=== PATIENT | male | born 1950 | race Caucasian/White ===

== ENCOUNTER 2021-10-01 16:09 | Emergency (ER) | payer MEDICARE, SELFPAY ==
--- NOTE | ~2021-10-01 | XR_ITS ---
XR chest 2V 10/01/2021 16:46 Indication: Shortness of breath. Procedure: 2 view chest Comparison: 09/15/2018 Findings: There is a tracheostomy tube present. Heart size normal. No focal air space disease, pulmon enrique edema, pleural effusion or suspected pneumothorax. No acute osseous abnormality. Impression: 1: No acute cardiopulmonary disease. Reviewed, dictated and finalized at location B. Impression: 1: No acute cardiopulmonary disease.
[2021-10-01 16:21] VITALS: BP 134/76; PULSE 85; RESP 16; TEMP 36.3; O2SAT 99
--- NOTE | 2021-10-01 16:48 | ED.SOB ---
HPI - SOB/Dyspnea General Chief Complaint: Shortness of Breath/Dyspnea Stated Complaint: shortness of breath, dizziness Time Seen by Provider: 10/01/21 16:40 Source: patient Mode of arrival: ambulatory Limitations: no limitations History of Present Illness HPI Narrative: Holger Weldon is a 71 yo male with PMH of renal carcinoma,anxiety, high cholesterol, GERD, trach, laryngectomy, who [facility] complaining of shortness of breath. And elevated blood pressure at home. At triage his O2 sats are 99% and his blood pressure was 134/76. He is also on chronic anticoagulation for pulmonary emboli -CT scheduled for Tuesday with blood work-he is has a cancer infusion X3 unable to tell me which cancer he is being treated for Patient has had a COVID-vaccine and has been posted Related Data Home Medications Medication Instructions Recorded Confirmed apixaban [Eliquis] mg 10/01/21 aspirin 81 mg PO DAILY 10/01/21 10/01/21 atorvastatin 80 mg PO DAILY 10/01/21 10/01/21 clonazepam 10/01/21 omeprazole 20 mg PO DAILY 10/01/21 10/01/21 Allergies Allergy/AdvReac Type Severity Reaction Status Date / Time No Known Allergies Allergy Verified 10/01/21 16:21 Review of Systems Review of Systems: CONSTITUTIONAL: Denies fever, chills, sweats. EYES: Denies visual changes, redness, discharge. ENT: Denies rhinorrhea, congestion, sore throat, otalgia. CARDIOVASCULAR: Denies chest pain, palpitations, edema. RESPIRATORY: Complains of dyspnea, wheezing, cough GASTROINTESTINAL: Denies abdominal pain, nausea, vomiting, diarrhea. GENITOURINARY: Denies dysuria, hematuria, abnormal discharge SKIN: Denies rash or itching. NEUROLOGIC: Denies numbness, or focal weakness. PSYCHIATRIC: Denies anxiety or depression. [facility] Past Medical History Medical History Chronic anticoagulation GERD (gastroesophageal reflux disease) High cholesterol Pulmonary emboli Surgical History Surgical History History of laryngectomy Social History Social History (Updated 10/01/21 @ 16:51 by Natalie Henry CNP) Smoking status: Former smoker Comments At time of signature, I agree with nursing past medical, surgical, social and family history. There is no relevant family history pertinent to the presenting complaint. Exam Narrative: GENERAL: This is a well-nourished, well-developed patient, in mild distress. HEAD: normocephalic, atraumatic. EYES: PERRL. Sclera clear/white. Vision is grossly intact. EARS: External ears normal. Hearing grossly intact. NOSE: External nose normal without nasal discharge, nares without redness, no rhinorrhea. THROAT: Mucous membranes moist, NECK: Neck supple, trach in place CARDIOVASCULAR: Irregular rate and rhythm without murmurs, gallops, or rubs. RESPIRATORY: Clear to auscultation. Breath sounds equal bilaterally. No wheezes, rales, or rhonchi. GASTROINTESTINAL: Abdomen soft, SKIN: warm, intact with no suspicious lesions or rash, good texture and turgor. NEURO: awake, alert, and oriented to person, place and time. There were no obvious focal neurologic abnormalities. Steady gait EXTREMITIES: Normal range of motion. BACK: Nontender without deformity Course Course Emergency Course: Patient with chronic physical abnormalities including renal carcinoma and laryngectomy comes complaining of dyspnea for the last few days in triage his O2 sats were 99%. Has received COVID-vaccine Chest x-ray-no acute cardiopulmonary disease, no pleural effusion no pulmonary edema or suspected pneumothorax Patient discussed needing an echocardiogram and is getting infusions for his cancer treatment every 3 weeks but is unable to tell me which cancer is being treated for. He has a CT and blood work scheduled for Tuesday; recommended that he becomes more short of breath that he should go to the emergency room pointed out that he has been
== END 2021-10-01 17:11 | disposition home or self-care (01) ==
PROVIDERS: Emergency Provider Nurse Practitioner
DX: R06.00 Dyspnea, unspecified (principal); K21.9 Gastro-esophageal reflux disease without esophagitis; E78.00 Pure hypercholesterolemia, unspecified; Z86.711 Personal history of pulmonary embolism; Z79.01 Long term (current) use of anticoagulants; Z87.891 Personal history of nicotine dependence; Z79.82 Long term (current) use of aspirin
CPT/HCPCS: 71046; 99213; G0463

== ENCOUNTER 2021-12-03 14:57 | Inpatient (IN) | payer MEDICARE, SELFPAY ==
[2021-12-03] VITALS (20 sets, daily range): BP systolic 121–141; BP diastolic 88–102; PULSE 59–88; RESP 16–37; TEMP 36.6–36.9; O2SAT 90–98; BMI 28.0; BMI 28.3
--- NOTE | ~2021-12-03 | XR_ITS ---
EXAMINATION: XR chest 2V DATE: 12/03/2021 15:49 INDICATION: Shortness of breath. TECHNIQUE: Frontal and lateral views of the chest were obtained. COMPARISON: Chest 2 views 10/01/2021, CT abdomen 09/15/2018 FINDINGS: There is a diffuse interstitial pattern in the lungs, consistent mild pulmonary edema. Ther e are small pleural effusions. No pneumothorax. Cardiomegaly is noted. A tracheostomy tube is noted. IMPRESSION: 1. Mild pulmonary edema. 2. Small pleural effusions. 3. Cardiomegaly. Reviewed, dictated and finalized at location A.
--- NOTE | ~2021-12-03 | XR_ITS ---
XR chest 1V portable 12/05/2021 12:28 Indication: New onset of shortness of breath Procedure: AP portable chest Comparison: 12/03/2021 Findings: Cardiomegaly with improving interstitial edema. No significant effusion or pneumothorax. Th ere is a tracheostomy tube present. No acute osseous abnormality. Impression: 1: Improving interstitial edema. Reviewed, dictated and finalized at location A. Impression: 1: Improving interstitial edema.
--- NOTE | ~2021-12-03 | CT_ITS ---
EXAMINATION: CTA chest PE protocol DATE: 12/03/2021 17:58 INDICATION: Shortness of breath. TECHNIQUE: Computed tomography angiography (CTA) of the chest was performed with 100 mL Omnipaque-350 intravenous contrast timed to evaluate the pulmonary arteries. Coronal maximum intensity projection 3D-reconstructions were created by the technologist. Automated exposure control and iterative reconst ruction technique were employed. The dose-length product was 476.20 mGy-cm. COMPARISON: CT abdomen 09/15/2018 FINDINGS: There is smooth septal thickening, consistent mild pulmonary edema. There are small pleural effusions. There are dependent airspace and groundglass opacities, likely atelectasis. There is a tr acheostomy tube in expected position. Cardiomegaly is noted. There are coronary artery calcifications . No pericardial effusion. There is a small linear filling defect in pulmonary arteries in left lower lobe. There is a small linear filling defect in distal right main pulmonary artery. Right kidney is absent. IMPRESSION: 1. Small bilateral pulmonary emboli, likely chronic. 2. Mild pulmonary edema. 3. Small pleural effusions. 4. Cardiomegaly. Reviewed, dictated and finalized at location A.
--- NOTE | 2021-12-03 14:58 | ECG_ITS ---
Measurements Intervals [place] Rate: 83 P: HI: 0 QRS: -2 QRSD: 110 T: -5 QT: 391 QTc: 462 Interpretive Statements ATRIAL FIBRILLATION VENTRICULAR PREMATURE COMPLEX BORDERLINE R WAVE PROGRESSION, ANTERIOR LEADS NONSPECIFIC ST & T-WAVE ABNORMALITY- DIFFUSE LEADS ABNORMAL ECG Electronically Signed On 12-03-2021 16:25:24 CDT by Blanco Scott D.O.
[2021-12-03 15:31] LABS: Basophils Percent Auto 0.6 % (0.2-1.2); Eosinophils Absolute Auto 0.1 K/mm3 (0-0.3); Eosinophils Percent Auto 1.7 % (0-4.4); Hematocrit 39.3 % (42.0-52.0); Hemoglobin 13.6 g/dL (14.0-18.0); Immature Granulocyte Absolute 0.02 K/mm3 (0.00-0.031); Immature Granulocyte Percent A 0.3 % (0-0.5); Lymphocytes Absolute Auto 2.01 K/mm3 (0.9-3.2); Lymphocytes Percent Auto 31.9 % (18.3-44.2); Mean Corpuscular HGB Conc 34.6 g/dl (32-36); Mean Corpuscular Volume 89.5 fl (80-100); Monocytes Absolute Auto 0.5 K/mm3 (0.1-0.6); Monocytes Percent Auto 7.5 % (2.6-8.5); Neutrophils Absolute Auto 3.7 K/mm3 (1.3-6.7); Platelet Count Result 175 k/mm3 (150-375); Red Blood Count 4.39 M/mm3 (4.6-6.20); White Blood Count 6.3 K/mm3 (4.5-10.0)
[2021-12-03 15:41] LABS: Alanine Aminotransferase 19 U/L (6-50); Alkaline Phosphatase 52 U/L (38-126); Anion Gap 9 mmol/L (8-16); Aspartate Amino Transferase 22 U/L (17-59); Bilirubin,Total 1.3 mg/dL (0.2-1.3); Blood Urea Nitrogen 18 mg/dL (9-20); Calcium 8.3 mg/dL (8.4-10.2); Carbon Dioxide 22 mmol/L (22-30); Chloride 94 mmol/L (98-107); Estimated CRCL calculation 48 ml/min; Estimated Glomerular Filt Rate 54; Glucose 100 mg/dL (65-110); Potassium 3.7 mmol/L (3.4-5.0); Sodium 125 mmol/L (137-145)
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
[2021-12-03 16:35] LABS: Alveolar/Arterial O2 Gradient 44.4 mmHg; Fractional Inspired Oxygen 21 %; HCO3 ABG 18.7 mEq/l (22.0-26.0); Oxygen Content ABG 18.5 %vol (16.0-22.0); Oxygen Saturation ABG 95.3 % (95.0-100.0); Oxyhemoglobin 92.6 % THb (90.0-100.0); PCO2 ABG 27.9 mmHg (35.0-45.0); PO2 ABG 71.9 mmHg (80.0-100.0); PO2 FiO2 Ratio Arterial Blood 3.42 %; Total Hemoglobin 14.2 g/dL (12.0-18.0); pH ABG 7.443 (7.350-7.450)
[2021-12-03 16:36] LABS: Device ROOM AIR; Modified Allen's Test Pass; Site Drawn RIGHT RADIAL
[2021-12-03 16:58] LABS: NT Pro B Type Natriuretic Pept 6280 pg/mL (5-100); Troponin I 0.033 ng/mL (0.000-0.034)
[2021-12-03 17:05] LABS: D Dimer 0.78 ug/mL (<0.48)
[2021-12-03 17:18] LABS: SARS-CoV-2 RNA PCR Negative
--- NOTE | 2021-12-03 18:15 | PM.IMHP ---
H&P: HPI History of Present Illness Date/Time: 12/03/21 18:15 Chief Complaint: Shortness of breath accompanied with nausea Narrative: Patient is a 71-year-old male with past medical history of PE, laryngectomy with trach placement, renal carcinoma who presented the ED with complaints of shortness of breath and nausea for about a 6 days. He stated that this is all getting worse and he has been vomiting multiple times and he always feels like he is going to vomit. He has had chest pain that sternal and he can not walk far without being very short of breath. He just saw the Cardiology yesterday who ordered a stress test for tomorrow however patient is here because he is feeling worse. Patient started Eliquis in July for PE. He also stated that he is tired and weak. He denies any swelling in his legs. On the monitor the patient is in AFib when asked what he stated that he does not know anything about it but then said that Dr. De Leon who is his senior scrum master was going to do the stress test tomorrow and then on was go to do a cardioversion. Patient denies any palpitations, diarrhea, constipation, visual changes, headaches, dizziness, weakness or fatigue. Patient currently sports a metal trach he has had for over 45 years. He denies any sputum changes or increases color changes. He denies any urinary changes. He denies any pain. Chest x-ray and CTA pulse show small pleural effusions and mild pulmonary edema. Patient is being admitted to the hospitalist service as inpatient. Cardiology has been consulted Review of Systems Review of Systems: All systems reviewed & are unremarkable except as noted in HPI and below [facility] Past Medical History Medical History (Updated 12/03/21 @ 20:56 by DEDE Ortiz) Chronic anticoagulation GERD (gastroesophageal reflux disease) High cholesterol Hip fracture Pelvic fracture Pulmonary emboli Renal carcinoma Surgical History Surgical History History of laryngectomy History of nephrectomy Family History Family History (Updated 12/03/21 @ 20:57 by DEDE Ortiz) Mother Heart disease Hypertension Father Heart disease Hypertension Social History Social History (Updated 12/03/21 @ 21:00 by DEDE Ortiz) Social History: Patient just moved back here from [place] due to treatment. 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 Gender identity (if verbalized by the patient): Male Spiritual care concerns: Yes Agree to blood products: Yes Meds Home Medications and Allergies Home Medications Medication Instructions Recorded Confirmed Type apixaban 5 mg tablet (Eliquis) 5 mg PO BID 10/01/21 12/03/21 History atorvastatin 80 mg tablet 80 mg PO DAILY 10/01/21 12/03/21 History clonazepam 1 mg tablet 1 mg PO HS 10/01/21 12/03/21 History omeprazole 20 mg capsule,delayed 20 mg PO DAILY 10/01/21 12/03/21 History release aspirin 81 mg tablet,delayed 81 mg PO DAILY 12/03/21 12/03/21 History release metoprolol succinate 25 mg 25 mg PO DAILY 12/03/21 12/03/21 History tablet,extended release 24 hr zolpidem 5 mg tablet 5 mg PO 12/03/21 12/03/21 History Allergies Allergy/AdvReac Type Megan
[2021-12-03] MEDS: FUROSEMIDE INJ 40 MG/4 ML VIAL 60 MG IV PUSH (18:56)
[2021-12-03] MEDS: ONDANSETRON INJ 4 MG/2 ML VIAL (18:56)
[2021-12-03] MEDS: NITROGLYCERIN OINTMENT 1 INCH DOSE TRANSDERM ×2 (18:58→23:34)
--- NOTE | 2021-12-03 20:18 | ADMGEN ---
This patient, Holger Titus, was admitted to IMU Room 204-01 at 2005. Patient/family oriented to hospital policies and general routines including ID bracelet, bed and alarms, visiting hours, pain management, procedures, bathroom and other care routines, personal items, smoking policy, room service/diet, and visiting hours. Information on how to activate the Rapid Response Team has been discussed. Patient/Family are encouraged to report perceived risks to care and to ask questions if they do not understand what they are told or what they should do.
[2021-12-03] MEDS: METOCLOPRAMIDE HCL INJ 10 MG/2 ML VIAL IV PUSH (21:44)
[2021-12-03] MEDS: clonazePAM (*CRX) 0.5 MG TABLET 1 MG PO (21:47)
[2021-12-03] MEDS: ZOLPIDEM TARTRATE (*CRX) 5 MG TABLET PO (21:48)
[2021-12-03] MEDS: FUROSEMIDE INJ 40 MG/4 ML VIAL IV PUSH (21:48)
[2021-12-03] MEDS: ONDANSETRON INJ 4 MG/2 ML VIAL IV PUSH (21:53)
[2021-12-03] MEDS: HYDROcodone/acetaminophen (*CRX) 5-325 MG TABLET 1 TAB PO (21:56)
[2021-12-03 22:15] LABS: Troponin I 0.032 ng/mL (0.000-0.034)
[2021-12-04] VITALS (13 sets, daily range): BP systolic 98–127; BP diastolic 55–104; PULSE 74–104; RESP 12–28; TEMP 36.7–37.6; O2SAT 91–98
--- NOTE | 2021-12-04 | ECHO_ITS ---
Patient Info Name: Holger Titus Age: 71 years : 1950 Gender: Male Ht: 70 in Wt: 195 lbs BSA: 2.11 m2 HR: 89 bpm BP: 126 / 82 mmHg Heart Rhythm: Atrial Fibrillation Technical Quality: Fair Exam Date: 12/04/2021 8:37 AM Exam Location: [facility] Patient Status: Inpatient Admit Date: 12/03/2021 Staff Ordering Physician: Luca Tolliver Welt Stitch Cleaner: Marina Santana RDCS Attending Provider: Leah Mon DO Referring Physician: Unruly MOODY; Exam Type: CA echo dop color flow w con Study Info Indications - shortness of breath, afib Complete two-dimensional, color flow and Doppler transthoracic echocardiogram is performed with contrast to opacify the left ventricle and to improve the deliniation of the left ventricle endocardial borders. Contrast/Agitated Saline Contrast/Ag. Saline: Definity Amount: 3.00 ml Administered By: Marina Santana RDCS Existing IV Access: Yes IV Access Condition: patent with no signs of infiltration Summary 1. The posterior segment appears to be akinetic, the remainder of the LV is hypodynamic. 2. Left ventricular systolic function is moderately reduced, estimated at 30-35%. 3. Left atrial chamber dimension is severely enlarged. 4. Very mild brice valvular insufficiency. 5. Atrial fibrillation. Left Ventricle Left ventricular chamber dimension is moderately enlarged. Left ventricular systolic function is moderately reduced, estimated at 30-35%. The left ventricular diastolic function is indeterminate. The posterior segment appears to be akinetic, the remainder of the LV is hypodynamic. Right Ventricle Right ventricular chamber dimension is normal. Left Atria Left atrial chamber dimension is severely enlarged. Right Atria Right atrial chamber dimension is normal. Aortic Valve The aortic valve is normal. There is trace aortic valve regurgitation. Pulmonic Valve The pulmonic valve is not well visualized. There is trace pulmonic regurgitation. Mitral Valve The mitral valve has normal leaflets. There is trace mitral valve regurgitation. Tricuspid Valve The tricuspid valve leaflets are normal. There is mild tricuspid valve regurgitation. Pericardium/Pleural The pericardium appears normal. Aorta The aortic root size at the sinus of Valsalva is normal. Left Ventricular Outflow Tract Name Value Normal LVOT 2D LVOT Diameter 2.13 cm LVOT Doppler LVOT Peak Gradient 2 mmHg LVOT Mean Gradient 1 mmHg LVOT VTI 12.51 cm LVOT VTI/AV VTI Ratio 0.73 LVOT Stroke Volume 44.47 ml LVOT CO 2.31 l/min LVOT CI 1.10 L/min/m2 Pulmonic Valve Name Value Normal RVOT Doppler
[2021-12-04 01:03] LABS: Troponin I 0.039 ng/mL (0.000-0.034)
[2021-12-04 04:41] LABS: Basophils Percent Auto 0.6 % (0.2-1.2); Eosinophils Absolute Auto 0.1 K/mm3 (0-0.3); Eosinophils Percent Auto 1.9 % (0-4.4); Hematocrit 38.7 % (42.0-52.0); Hemoglobin 13.5 g/dL (14.0-18.0); Immature Granulocyte Absolute 0.02 K/mm3 (0.00-0.031); Immature Granulocyte Percent A 0.3 % (0-0.5); Lymphocytes Absolute Auto 1.57 K/mm3 (0.9-3.2); Lymphocytes Percent Auto 25.1 % (18.3-44.2); Mean Corpuscular HGB Conc 34.9 g/dl (32-36); Monocytes Absolute Auto 0.6 K/mm3 (0.1-0.6); Neutrophils Absolute Auto 3.9 K/mm3 (1.3-6.7); Neutrophils Percent Auto 63.1 % (45.5-73.1); Platelet Count Result 152 k/mm3 (150-375); Red Blood Count 4.35 M/mm3 (4.6-6.20); Red Cell Distribution Width 13.7 % (11.5-14.5); White Blood Count 6.3 K/mm3 (4.5-10.0)
[2021-12-04 04:52] LABS: Alanine Aminotransferase 18 U/L (6-50); Albumin Level 3.9 g/dL (3.5-5.1); Alkaline Phosphatase 54 U/L (38-126); Anion Gap 8 mmol/L (8-16); Aspartate Amino Transferase 20 U/L (17-59); Bilirubin,Total 1.4 mg/dL (0.2-1.3); Blood Urea Nitrogen 19 mg/dL (9-20); Calcium 8.5 mg/dL (8.4-10.2); Carbon Dioxide 27 mmol/L (22-30); Chloride 91 mmol/L (98-107); Estimated CRCL calculation 42 ml/min; Estimated Glomerular Filt Rate 46; Glucose 81 mg/dL (65-110); Magnesium 1.3 mg/dL (1.6-2.3); Potassium 3.5 mmol/L (3.4-5.0); Sodium 126 mmol/L (137-145)
[2021-12-04] MEDS: NITROGLYCERIN OINTMENT 1 INCH DOSE TRANSDERM (06:24)
[2021-12-04] MEDS: PERFLUTREN LIPID MICROSPHERES 1.5 ML VIAL DILUTED TO 10 ML TOTAL VOLUME IV PUSH (09:11)
--- NOTE | 2021-12-04 09:11 | IVDEFINITY ---
Prior to administration of IV Definity the patient was educated on the risks and benefits of the imaging enhancing agent including potential adverse side effects. The patient verbalized understanding. Allergies were verified. No exclusion criteria were identified and at least one of the following inclusion criteria were met: 1) physician request, 2) patient technically difficult to image (per the [place] Society [employer] Echocardi[employer] guidelines of two or more segments not discernable within the apical view), or 3) questionable left ventricular function. ?
[2021-12-04] MEDS: ATORVASTATIN 40 MG TABLET 80 MG PO (09:29)
[2021-12-04] MEDS: APIXABAN 5 MG TABLET PO ×2 (09:30→17:16)
[2021-12-04] MEDS: METOPROLOL SUCCINATE EXT REL 25 MG TABCR PO (09:30)
[2021-12-04] MEDS: PANTOPRAZOLE 40 MG TABLET PO (09:30)
[2021-12-04] MEDS: FUROSEMIDE INJ 40 MG/4 ML VIAL IV PUSH ×2 (09:31→20:28)
[2021-12-04] MEDS: ASPIRIN 81 MG CHEWABLE TABLET PO (09:37)
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
--- NOTE | 2021-12-04 13:45 | P.CDI_ITS ---
CDI Query Clarification Request CHF has been documented, please specify type and acuity of heart failure if known. Clinical Indicators: Echo performed 12/04/21, Summary 1. The posterior segment appears to be akinetic, the remainder of the LV is hypodynamic. 2. Left ventricular systolic function is moderately reduced, estimated at 30-35%. 3. Left atrial chamber dimension is severely enlarged. 4. Very mild brice valvular insufficiency. 5. Atrial fibrillation. Treatment: IV Lasix * Acute * Chronic * Acute on Chronic * Unknown * Systolic * Diastolic * Combined Systolic and Diastolic * Unknown <HIGINIO Ramsey - Last Filed: 12/04/21 13:48> Clarified Diagnosis (1) Acute on chronic systolic heart failure: Code(s): I50.23 - Acute on chronic systolic (congestive) heart failure <HIGINIO Ramsey - Last Filed: 12/04/21 13:48> Status: Acute <HIGINIO Ramsey - Last Filed: 12/04/21 13:48> Assessment and Plan: Acute on chronic systolic heart failure <Leah Mon DO - Last Filed: 12/08/21 16:58> Provider Comments acute on chronic systolic heart fa <Leah Mon DO - Last Filed: 12/08/21 16:58>
--- NOTE | 2021-12-04 14:53 | P.PNIM_ITS ---
Progress Note: A&P Assessment and Plan (1) Renal carcinoma: Code(s): C64.9 - Malignant neoplasm of unspecified kidney, except renal pelvis Status: Acute Assessment and Plan: * Patient had nephrectomy * Currently getting treatment * It has advanced is a stage III * Continue follow-up treatment outpatient (2) CHF (congestive heart failure): Code(s): I50.9 - Heart failure, unspecified Status: Acute Assessment and Plan: Appreciate cardiology consultation, will discontinue metoprolol and start carvedilol, as well as at [facility], appreciate Cardiology recommendations, monitor with IV diuresis, anticipate discharge in 1-2 days (3) Hyponatremia: Code(s): E87.1 - Hypo-osmolality and hyponatremia Status: Acute Assessment and Plan: * Current sodium 125 * Probably related to fluid overload * Will hold off on fluids until tomorrow to see with the sodium comes back after Lasix * Continue trend sodium * Adjust therapy as indicated * Consider Nephrology if needed (4) Atrial fibrillation: Code(s): I48.91 - Unspecified atrial fibrillation Status: Acute Assessment and Plan: * Currently in AFib with rate controlled * Seems to be relatively new but not * Patient is to be cardioverted next * Currently on Eliquis which will be continued * Eugene Vasc score 3 which is a moderate to high risk * Continue aspirin and metoprolol (5) Hyperlipidemia: Code(s): E78.5 - Hyperlipidemia, unspecified Status: Acute Assessment and Plan: * Continue atorvastatin 80 mg p.o. daily Subjective Date/time seen: 12/04/21 14:53 Interval history: he feels much better than when came in.?No overnight events noted.? No chest pain or shortness of breath.? No nausea, vomiting or diarrhea.? No fevers or chills. Review of Systems Review of Systems: All systems reviewed & are unremarkable except as noted in HPI and below Exam Narrative: ? General:??No acute distress, alert and oriented per baseline HEENT:? Atraumatic, normocephalic, mucous membranes moist CV:? Regular rate and rhythm, S1, S2 Lungs:? Clear to auscultation bilaterally, no rales or crackles noted, no wheezes, good air entry Abdomen:? Soft, nontender, nondistended Extremities:? Normal to inspection Skin:? No rashes noted, no lesions or wounds seen Psych:? Euthymic, normal affect Objective Data Vital Signs Vital Signs: Vital Signs - 24 hr 12/03/21 14:59 12/03/21 16:08 12/03/21 16:12 Temperature 97.8 F Pulse Rate 59 L 77 Respiratory Rate 18 34 H Blood Pressure 141/101 H 132/99 H Pulse Oximetry 98 94 94 Oxygen Delivery Room Air 12/03/21 16:15 12/03/21 16:16 12/03/21 16:30 Temperature Pulse Rate 85 75 83 Respiratory Rate 29 H 31 H 32 H Blood Pressure 125/95 H Pulse Oximetry 90 93 Oxygen Delivery 12/03/21 16:31 12/03/21 16:45 12/03/21 16:46 Temperature Pulse Rate 73 83 76 Respiratory Rate 22 H 29 H 32 H Blood Pressure 130/96 H 125/102 H Pulse Oximetry Oxygen Delivery 12/03/21 17:00 12/03/21
--- NOTE | 2021-12-04 14:53 | PM.IMPN ---
Progress Note: A&P Assessment and Plan (1) Renal carcinoma: Code(s): C64.9 - Malignant neoplasm of unspecified kidney, except renal pelvis Status: Acute Assessment and Plan: Patient had nephrectomy Currently getting treatment It has advanced is a stage III Continue follow-up treatment outpatient (2) CHF (congestive heart failure): Code(s): I50.9 - Heart failure, unspecified Status: Acute Assessment and Plan: Appreciate cardiology consultation, will discontinue metoprolol and start carvedilol, as well as at [facility], appreciate Cardiology recommendations, monitor with IV diuresis, anticipate discharge in 1-2 days (3) Hyponatremia: Code(s): E87.1 - Hypo-osmolality and hyponatremia Status: Acute Assessment and Plan: Current sodium 125 Probably related to fluid overload Will hold off on fluids until tomorrow to see with the sodium comes back after Lasix Continue trend sodium Adjust therapy as indicated Consider Nephrology if needed (4) Atrial fibrillation: Code(s): I48.91 - Unspecified atrial fibrillation Status: Acute Assessment and Plan: Currently in AFib with rate controlled Seems to be relatively new but not Patient is to be cardioverted next Currently on Eliquis which will be continued Eugene Vasc score 3 which is a moderate to high risk Continue aspirin and metoprolol (5) Hyperlipidemia: Code(s): E78.5 - Hyperlipidemia, unspecified Status: Acute Assessment and Plan: Continue atorvastatin 80 mg p.o. daily Subjective Date/time seen: 12/04/21 14:53 Interval history: he feels much better than when came in.?No overnight events noted.? No chest pain or shortness of breath.? No nausea, vomiting or diarrhea.? No fevers or chills. Review of Systems Review of Systems: All systems reviewed & are unremarkable except as noted in HPI and below Exam Narrative: ? General:??No acute distress, alert and oriented per baseline HEENT:? Atraumatic, normocephalic, mucous membranes moist CV:? Regular rate and rhythm, S1, S2 Lungs:? Clear to auscultation bilaterally, no rales or crackles noted, no wheezes, good air entry Abdomen:? Soft, nontender, nondistended Extremities:? Normal to inspection Skin:? No rashes noted, no lesions or wounds seen Psych:? Euthymic, normal affect Objective Data Vital Signs Vital Signs: Vital Signs - 24 hr 12/03/21 14:59 12/03/21 16:08 12/03/21 16:12 Temperature 97.8 F Pulse Rate 59 L 77 Respiratory Rate 18 34 H Blood Pressure 141/101 H 132/99 H Pulse Oximetry 98 94 94 Oxygen Delivery Room Air 12/03/21 16:15 12/03/21 16:16 12/03/21 16:30 Temperature Pulse Rate 85 75 83 Respiratory Rate 29 H 31 H 32 H Blood Pressure 125/95 H Pulse Oximetry 90 93 Oxygen Delivery 12/03/21 16:31 12/03/21 16:45 12/03/21 16:46 Temperature Pulse Rate 73 83 76 Respiratory Rate 22 H 29 H 32 H Blood Pressure 130/96 H 125/102 H Pulse Oximetry Oxygen Delivery 12/03/21 17:00 12/03/21 17:02 12/03/21 17:19 Temperature Pulse Rate 75 83 85 Respiratory Rate 33 H 37 H 31 H Blood Pressure 121/96 H Pulse Oximetry Oxygen Delivery 12/03/21 17:30 12/03/21 17:58 12/03/21 18:00 Temperature Pulse Rate 75 81 81 Respiratory Rate 34 H 30 H 27 H Blood Pressure Pulse Oximetry 90 93 Oxygen Delivery 12/03/21 18:15 12/03/21 18:30 12/03/21 20:19 Temperature 98.4 F Pulse Rate 87 86 77 Respiratory Rate 31 H 27 H 18 Blood Pressure 136/88 129/95 H Pulse Oximetry 94 95 97 Oxygen Delivery 12/03/21 20:34 12/03/21 20:25 12/04/21 00:00 Temperature 98.3 F Pulse Rate 88 85 Respiratory Rate 16 28 H Blood Pressure 124/88 98/55 L Pulse Oximetry 97 96 93 Oxygen Delivery Room Air 12/04/21 00:00 12/04/21 00:00 12/04/21 04:00 Temperature Pulse Rate 74 78 Respirato
[2021-12-04] MEDS: HYDROcodone/acetaminophen (*CRX) 5-325 MG TABLET 1 TAB PO ×2 (17:18→22:28)
[2021-12-04] MEDS: ONDANSETRON INJ 4 MG/2 ML VIAL IV PUSH (17:19)
[2021-12-04] MEDS: SACUBITRIL/VALSARTAN 24-26 MG TABLET 1 TAB PO (20:29)
[2021-12-04] MEDS: clonazePAM (*CRX) 0.5 MG TABLET 1 MG PO (20:29)
[2021-12-04] MEDS: ZOLPIDEM TARTRATE (*CRX) 5 MG TABLET PO (20:37)
[2021-12-05] VITALS (15 sets, daily range): BP systolic 104–128; BP diastolic 61–93; PULSE 77–104; RESP 16–28; TEMP 36.7–37.6; O2SAT 90–98
[2021-12-05] MEDS: ONDANSETRON INJ 4 MG/2 ML VIAL IV PUSH (04:15)
--- NOTE | 2021-12-05 04:33 | PC.NURSE ---
At 0400 patient called out with complaint of feeling weak, diaphoretic and lightheaded. He stated he had not been eating very much of his dinner and would like some pudding or ensure. I gave him a cup of pudding and he said he felt a little better. He stated he felt nauseous. I gave him prn med zosyn which was ordered for nausea. I checked his blood sugar which was 90.
[2021-12-05 04:35] LABS: Glucose Point of Care 90 mg/dl (65-105)
--- NOTE | 2021-12-05 07:00 | ECG_ITS ---
Measurements Intervals [place] Rate: 95 P: HI: 0 QRS: -36 QRSD: 113 T: 60 QT: 393 QTc: 494 Interpretive Statements ATRIAL FIBRILLATION VENTRICULAR COUPLET LEFT AXIS DEVIATION INTRAVENTRICULAR CONDUCTION DELAY BORDERLINE R WAVE PROGRESSION, ANTERIOR LEADS INFERIOR INFARCT, AGE INDETERMINATE NONSPECIFIC ST & T-WAVE ABNORMALITY- ANTEROLAT/HIGH LAT LEADS BASELINE ARTIFACT- I, II, III, AVR, AVL, V4-V6 ABNORMAL ECG Electronically Signed On 12-05-2021 16:51:32 CDT by Blanco Scott D.O.
[2021-12-05] MEDS: METOPROLOL SUCCINATE EXT REL 25 MG TABCR PO (08:58)
[2021-12-05] MEDS: FUROSEMIDE INJ 40 MG/4 ML VIAL IV PUSH ×2 (08:58→20:42)
[2021-12-05] MEDS: ATORVASTATIN 40 MG TABLET 80 MG PO (08:58)
[2021-12-05] MEDS: ASPIRIN 81 MG CHEWABLE TABLET PO (08:58)
[2021-12-05] MEDS: SACUBITRIL/VALSARTAN 24-26 MG TABLET 1 TAB PO ×2 (08:58→20:42)
[2021-12-05] MEDS: APIXABAN 5 MG TABLET PO ×2 (08:59→17:49)
[2021-12-05] MEDS: PANTOPRAZOLE 40 MG TABLET PO (08:59)
--- NOTE | 2021-12-05 12:09 | ECG_ITS ---
Measurements Intervals [place] Rate: 96 P: MS: 0 QRS: -43 QRSD: 117 T: 0 QT: 339 QTc: 430 Interpretive Statements ATRIAL FIBRILLATION BORDERLINE R WAVE PROGRESSION, ANTERIOR LEADS INFERIOR INFARCT, AGE INDETERMINATE BORDERLINE ST-T WAVE ABNORMALITY- LAT/HIGH LAT LEADS BASELINE ARTIFACT- I, II, III, AVR, AVF ABNORMAL ECG Electronically Signed On 12-05-2021 16:59:54 CDT by Blanco Scott D.O.
--- NOTE | 2021-12-05 13:44 | P.PNIM_ITS ---
Progress Note: A&P Assessment and Plan (1) Renal carcinoma: Code(s): C64.9 - Malignant neoplasm of unspecified kidney, except renal pelvis Status: Acute Assessment and Plan: * Patient had nephrectomy * Currently getting treatment * It has advanced is a stage III * Continue follow-up treatment outpatient (2) CHF (congestive heart failure): Code(s): I50.9 - Heart failure, unspecified Status: Acute Assessment and Plan: Appreciate cardiology consultation, will discontinue metoprolol and start carvedilol, as well as at [facility], appreciate Cardiology recommendations, monitor with IV diuresis, anticipate discharge in 1-2 days (3) Hyponatremia: Code(s): E87.1 - Hypo-osmolality and hyponatremia Status: Acute Assessment and Plan: * Current sodium 125 * Probably related to fluid overload * Will hold off on fluids until tomorrow to see with the sodium comes back after Lasix * Continue trend sodium * Adjust therapy as indicated * Consider Nephrology if needed (4) Atrial fibrillation: Code(s): I48.91 - Unspecified atrial fibrillation Status: Acute Assessment and Plan: * Currently in AFib with rate controlled * Seems to be relatively new but not * Patient is to be cardioverted next * Currently on Eliquis which will be continued * Eugene Vasc score 3 which is a moderate to high risk * Continue aspirin and metoprolol (5) Hyperlipidemia: Code(s): E78.5 - Hyperlipidemia, unspecified Status: Acute Assessment and Plan: * Continue atorvastatin 80 mg p.o. daily Subjective Date/time seen: 12/05/21 13:44 Review of Systems Review of Systems: All systems reviewed & are unremarkable except as noted in HPI and below Exam Narrative: ? General:??No acute distress, alert and oriented per baseline HEENT:? Atraumatic, normocephalic, mucous membranes moist CV:? Regular rate and rhythm, S1, S2 Lungs:? Clear to auscultation bilaterally, no rales or crackles noted, no wheezes, good air entry Abdomen:? Soft, nontender, nondistended Extremities:? Normal to inspection Skin:? No rashes noted, no lesions or wounds seen Psych:? Euthymic, normal affect Objective Data Vital Signs Vital Signs: Vital Signs - 24 hr 12/04/21 14:23 12/04/21 16:00 12/04/21 17:00 Temperature 98.4 F Pulse Rate 84 74 87 Respiratory Rate 20 12 18 Blood Pressure 119/80 Pulse Oximetry 95 94 94 Oxygen Delivery Room Air Room Air Fraction of Inspired Oxygen 12/04/21 16:00 12/04/21 16:00 12/04/21 19:49 Temperature 99.6 F Pulse Rate 83 83 Respiratory Rate 24 H Blood Pressure 109/84 Pulse Oximetry 91 Oxygen Delivery Room Air Fraction of Inspired Oxygen 12/04/21 20:00 12/04/21 20:00 12/05/21 00:00 Temperature 98.1 F Pulse Rate 86 77 Respiratory Rate 22 H Blood Pressure 118/82 Pulse Oximetry 93 Oxygen Delivery Room Air Fraction of Inspired Oxygen 12/05/21 00:00 12/05/21 00:00 12/05/21 04:00 Temperature 99.5 F Pulse
--- NOTE | 2021-12-05 13:44 | PM.IMPN ---
Progress Note: A&P Assessment and Plan (1) Renal carcinoma: Code(s): C64.9 - Malignant neoplasm of unspecified kidney, except renal pelvis Status: Acute Assessment and Plan: Patient had nephrectomy Currently getting treatment It has advanced is a stage III Continue follow-up treatment outpatient (2) CHF (congestive heart failure): Code(s): I50.9 - Heart failure, unspecified Status: Acute Assessment and Plan: Appreciate cardiology consultation, will discontinue metoprolol and start carvedilol, as well as at [facility], appreciate Cardiology recommendations, monitor with IV diuresis, anticipate discharge in 1-2 days (3) Hyponatremia: Code(s): E87.1 - Hypo-osmolality and hyponatremia Status: Acute Assessment and Plan: Current sodium 125 Probably related to fluid overload Will hold off on fluids until tomorrow to see with the sodium comes back after Lasix Continue trend sodium Adjust therapy as indicated Consider Nephrology if needed (4) Atrial fibrillation: Code(s): I48.91 - Unspecified atrial fibrillation Status: Acute Assessment and Plan: Currently in AFib with rate controlled Seems to be relatively new but not Patient is to be cardioverted next Currently on Eliquis which will be continued Eugene Vasc score 3 which is a moderate to high risk Continue aspirin and metoprolol (5) Hyperlipidemia: Code(s): E78.5 - Hyperlipidemia, unspecified Status: Acute Assessment and Plan: Continue atorvastatin 80 mg p.o. daily Subjective Date/time seen: 12/05/21 13:44 Review of Systems Review of Systems: All systems reviewed & are unremarkable except as noted in HPI and below Exam Narrative: ? General:??No acute distress, alert and oriented per baseline HEENT:? Atraumatic, normocephalic, mucous membranes moist CV:? Regular rate and rhythm, S1, S2 Lungs:? Clear to auscultation bilaterally, no rales or crackles noted, no wheezes, good air entry Abdomen:? Soft, nontender, nondistended Extremities:? Normal to inspection Skin:? No rashes noted, no lesions or wounds seen Psych:? Euthymic, normal affect Objective Data Vital Signs Vital Signs: Vital Signs - 24 hr 12/04/21 14:23 12/04/21 16:00 12/04/21 17:00 Temperature 98.4 F Pulse Rate 84 74 87 Respiratory Rate 20 12 18 Blood Pressure 119/80 Pulse Oximetry 95 94 94 Oxygen Delivery Room Air Room Air Fraction of Inspired Oxygen 12/04/21 16:00 12/04/21 16:00 12/04/21 19:49 Temperature 99.6 F Pulse Rate 83 83 Respiratory Rate 24 H Blood Pressure 109/84 Pulse Oximetry 91 Oxygen Delivery Room Air Fraction of Inspired Oxygen 12/04/21 20:00 12/04/21 20:00 12/05/21 00:00 Temperature 98.1 F Pulse Rate 86 77 Respiratory Rate 22 H Blood Pressure 118/82 Pulse Oximetry 93 Oxygen Delivery Room Air Fraction of Inspired Oxygen 12/05/21 00:00 12/05/21 00:00 12/05/21 04:00 Temperature 99.5 F Pulse Rate 89 100 Respiratory Rate 22 H Blood Pressure 128/93 H Pulse Oximetry 90 Oxygen Delivery Room Air Fraction of Inspired Oxygen 12/05/21 04:00 12/05/21 04:00 12/05/21 06:39 Temperature Pulse Rate 100 Respiratory Rate Blood Pressure Pulse Oximetry Oxygen Delivery Room Air Trach Collar Fraction of Inspired Oxygen 12/05/21 07:53 12/05/21 08:02 12/05/21 08:58 Temperature 98.7 F Pulse Rate 98 82 82 Respiratory Rate 28 H 18 Blood Pressure 121/73 Pulse Oximetry 90 96 Oxygen Delivery Room Air Fraction of Inspired Oxygen 12/05/21 08:00 12/05/21 12:00 12/05/21 08:00 Temperature 98.2 F Pulse Rate 92 104 H Respiratory Rate 16 Blood Pressure 104/72 Pulse Oximetry 95 Oxygen Delivery Room Air Fraction of Inspired Oxygen 12/05/21 10:00 12/05/21 12:00 12/05/21 12:00 Temperature Pulse
[2021-12-05 14:03] LABS: NT Pro B Type Natriuretic Pept 1590 pg/mL (5-100); Troponin I 0.048 ng/mL (0.000-0.034)
--- NOTE | 2021-12-05 15:01 | PM.PNCARD ---
Progress Note: A&P Assessment and Plan (1) CHF (congestive heart failure): Qualifiers: Heart failure type: combined systolic and diastolic Heart failure chronicity: acute Qualified Code(s): I50.41 - Acute combined systolic (congestive) and diastolic (congestive) heart failure Code(s): I50.9 - Heart failure, unspecified Status: Acute Assessment and Plan: Continue IV Lasix 40 mg IV q.12 hours. Monitor daily weight, accurate input and output. Moderate to severe LV systolic dysfunction EF 30-35%. Patient was in the process of workup with his clinical specialty rep as an outpatient. Patient appears to be fairly euvolemic at this time. Monitor renal function electrolytes closely. Chest x-ray improved edema. Patient on room air able to lie flat at this time. Continue support with medical therapy Entresto 24/26 mg twice daily, Toprol XL 25 mg daily, diuretics. Depending on patient tolerates therapy later today may consider transition to oral diuretic regimen tomorrow. (2) Atrial fibrillation: Code(s): I48.91 - Unspecified atrial fibrillation Status: Acute Assessment and Plan: Atrial fibrillation persistent, heart rate controlled. Continue Toprol XL 25 mg daily. Continue Eliquis 5 mg twice daily. Telemetry. (3) Altered mental status: Code(s): R41.82 - Altered mental status, unspecified Status: Acute Assessment and Plan: Discontinue [place]. Caution with concomitant Klonopin, Ambien narcotic medication likely explanation for altered mental status. (4) Hyponatremia: Code(s): E87.1 - Hypo-osmolality and hyponatremia Status: Acute Assessment and Plan: Persistent, stable. Continue to monitor closely particular with ongoing diuresis. (5) Acute kidney injury: Code(s): N17.9 - Acute kidney failure, unspecified Status: Acute Assessment and Plan: Check BMP. Creatinine increased yesterday from the day before. (6) Troponin level elevated: Code(s): R77.8 - Other specified abnormalities of plasma proteins Status: Acute Assessment and Plan: Minimally elevated in setting of AFib, CHF, acute kidney injury most likely type 2 infarct not acute coronary syndrome and/or plaque rupture. Monitor symptoms. EKG unchanged compared to prior tracings. Plan This is a 71-year-old man with a rather complicated medical situation. Cardiac altamirano he has relatively severe left ventricular systolic dysfunction significant left atrial enlargement, atrial fibrillation and dyspnea on the basis of this. He recently was found to have renal cell carcinoma underwent a nephrectomy and has to have some sort of immune therapy after this. Because of these cardiac issues he was seen by a clinical specialty rep at [facility] recently as described above. At this point I would recommend continuing some diuresis. I am going to transition his metoprolol to carvedilol and start Entresto for his low ejection fraction. When he is euvolemic and clinically stable he probably can be discharged in the next 2-3 days and he anticipates as well as I that he will continue follow-up with his physicians at [facility] following this discharge. He is not known to have ischemic heart disease his echocardiogram does suggest underlying ischemic disease as a potential given the regional wall motion abnormalities. Obviously systemic anticoagulation with apixaban needs to be continued and is appropriate Mikey Kelley MD [facility] Subjective Date/time seen: Date of service: 12/05/21 15:01 Follow-up for CHF, atrial fibrillation Patient feels a little more short of breath earlier this morning better now. Given additional IV Lasix. Repeat chest x-ray revealed reduced interstitial edema. Patient notes some vague chest tightness worse with deep breathing improved lying down. Primarily complains of feeling weaker today. Patient received [place] yesterday in addition to his Klonopin and Am
[2021-12-05 16:10] LABS: Anion Gap 9 mmol/L (8-16); Blood Urea Nitrogen 24 mg/dL (9-20); Calcium 7.6 mg/dL (8.4-10.2); Carbon Dioxide 29 mmol/L (22-30); Chloride 86 mmol/L (98-107); Estimated CRCL calculation 37 ml/min; Estimated Glomerular Filt Rate 40; Glucose 98 mg/dL (65-110); Potassium 2.8 mmol/L (3.4-5.0); Sodium 124 mmol/L (137-145)
[2021-12-05] MEDS: clonazePAM (*CRX) 0.5 MG TABLET 1 MG PO (20:42)
[2021-12-05] MEDS: ZOLPIDEM TARTRATE (*CRX) 5 MG TABLET PO (20:42)
[2021-12-05] MEDS: ACETAMINOPHEN 325 MG TABLET 650 MG PO (20:52)
[2021-12-06] VITALS (19 sets, daily range): BP systolic 88–118; BP diastolic 41–75; PULSE 71–115; RESP 14–24; TEMP 36.2–37.2; O2SAT 93–99
--- NOTE | 2021-12-06 06:38 | PC.NURSE ---
Walked patient to the bathroom at the request of the patient. After getting in the bathroom the patient called out stating he was lightheaded and dizzy. I assisted him by to the bed. Patient refused using the urinal. He stated he was short of breath with satz of 90% and laboring. I proceeded to put 2L NC O2 on him. After about two minutes, his satz returned to 96%. I removed the O2 from patient bedside.
--- NOTE | 2021-12-06 07:57 | PM.IMPN ---
Progress Note: A&P Assessment and Plan (1) Renal carcinoma: Code(s): C64.9 - Malignant neoplasm of unspecified kidney, except renal pelvis Status: Acute Assessment and Plan: Patient had nephrectomy Currently getting treatment It has advanced is a stage III Continue follow-up treatment outpatient (2) CHF (congestive heart failure): Qualifiers: Heart failure chronicity: acute Heart failure type: combined systolic and diastolic Qualified Code(s): I50.41 - Acute combined systolic (congestive) and diastolic (congestive) heart failure Code(s): I50.9 - Heart failure, unspecified Status: Acute Assessment and Plan: Appreciate cardiology consultation, will discontinue metoprolol and start carvedilol, as well as at [facility], appreciate Cardiology recommendations, monitor with IV diuresis, anticipate discharge in 1-2 days 12/06: Chest x-ray showed improving edema, with slightly worsened sodium and creatinine as expected, appreciate cardiology consultation (3) Hyponatremia: Code(s): E87.1 - Hypo-osmolality and hyponatremia Status: Acute Assessment and Plan: Current sodium 125 Probably related to fluid overload Will hold off on fluids until tomorrow to see with the sodium comes back after Lasix Continue trend sodium Adjust therapy as indicated Consider Nephrology if needed 12/06: Sodium slightly worsened with diuresis, unsure of etiology I suspect patient is still hypervolemic and would expect sodium to improve with diuresis, will start sodium bicarb tabs today twice daily and reassess tomorrow, do not want to do fluids, suspect ins and outs are inaccurate, could consider fluid restriction (4) Atrial fibrillation: Code(s): I48.91 - Unspecified atrial fibrillation Status: Acute Assessment and Plan: Currently in AFib with rate controlled Seems to be relatively new but not Patient is to be cardioverted next Currently on Eliquis which will be continued Eugene Vasc score 3 which is a moderate to high risk Continue aspirin and metoprolol (5) Hyperlipidemia: Code(s): E78.5 - Hyperlipidemia, unspecified Status: Acute Assessment and Plan: Continue atorvastatin 80 mg p.o. daily Subjective Date/time seen: 12/06/21 07:57 Interval history: patient states he feels about the same as yesterday, still weak and fatigued. He feels a little lightheaded when he stands up. He had a little bit of confusion yesterday, but [place] was discontinued. He also had some anxiety and took 1 of his home Klonopin, this was confiscated. No confusion noted today.? No overnight events noted.? No chest pain or shortness of breath.? No nausea, vomiting or diarrhea.? No fevers or chills. Review of Systems Review of Systems: ? 12 point review of systems was assessed and was negative except as noted in the HPI Exam Narrative: ? General:??No acute distress, alert and oriented per baseline HEENT:? Atraumatic, normocephalic, mucous membranes moist CV:? Regular rate and rhythm, S1, S2 Lungs:? Good air entry, diminished at bases Abdomen:? Soft, nontender, nondistended Extremities:? Normal to inspection Skin:? No rashes noted, no lesions or wounds seen Psych:? Euthymic, normal affect Objective Data Vital Signs Vital Signs: Vital Signs - 24 hr 12/05/21 08:02 12/05/21 08:58 12/05/21 08:00 Temperature Pulse Rate 82 82 Respiratory Rate 18 Blood Pressure Pulse Oximetry 96 Oxygen Delivery Room Air Room Air Fraction of Inspired Oxygen 12/05/21 12:00 12/05/21 08:00 12/05/21 10:00 Temperature 98.2 F Pulse Rate 92 104 H 95 Respiratory Rate 16 Blood Pressure 104/72 Pulse Oximetry 95 Oxygen Delivery Fraction of Inspired Oxygen 12/05/21 12:00 12/05/21 12:00 12/05/21 13:20 Temperature Pulse Rate 97 Respiratory Rate Blood Pressure
[2021-12-06 09:14] LABS: Basophils Percent Auto 0.7 % (0.2-1.2); Eosinophils Absolute Auto 0.1 K/mm3 (0-0.3); Eosinophils Percent Auto 1.5 % (0-4.4); Hematocrit 42.1 % (42.0-52.0); Immature Granulocyte Absolute 0.02 K/mm3 (0.00-0.031); Immature Granulocyte Percent A 0.4 % (0-0.5); Lymphocytes Percent Auto 18.4 % (18.3-44.2); Mean Corpuscular HGB Conc 35.6 g/dl (32-36); Mean Corpuscular Hemoglobin 30.7 pg (26-34); Mean Corpuscular Volume 86.3 fl (80-100); Mean Platelet Volume 10.4 fl (7.4-10.4); Monocytes Absolute Auto 0.5 K/mm3 (0.1-0.6); Monocytes Percent Auto 9.9 % (2.6-8.5); Neutrophils Absolute Auto 3.8 K/mm3 (1.3-6.7); Neutrophils Percent Auto 69.1 % (45.5-73.1); Platelet Count Result 193 k/mm3 (150-375); Red Blood Count 4.88 M/mm3 (4.6-6.20); Red Cell Distribution Width 13.7 % (11.5-14.5); White Blood Count 5.4 K/mm3 (4.5-10.0)
[2021-12-06 09:23] LABS: Alanine Aminotransferase 25 U/L (6-50); Albumin Level 3.7 g/dL (3.5-5.1); Alkaline Phosphatase 54 U/L (38-126); Anion Gap 9 mmol/L (8-16); Aspartate Amino Transferase 37 U/L (17-59); Bilirubin,Total 1.2 mg/dL (0.2-1.3); Blood Urea Nitrogen 25 mg/dL (9-20); Calcium 7.6 mg/dL (8.4-10.2); Carbon Dioxide 30 mmol/L (22-30); Chloride 83 mmol/L (98-107); Estimated CRCL calculation 35 ml/min; Estimated Glomerular Filt Rate 37; Glucose 101 mg/dL (65-110); Sodium 122 mmol/L (137-145)
[2021-12-06] MEDS: ATORVASTATIN 40 MG TABLET 80 MG PO (09:35)
[2021-12-06] MEDS: SACUBITRIL/VALSARTAN 12-13 MG TABLET 1 TAB PO ×2 (09:35→20:28)
[2021-12-06] MEDS: ASPIRIN 81 MG CHEWABLE TABLET PO (09:35)
[2021-12-06] MEDS: POTASSIUM CHLORIDE 20 MEQ TABLET 40 MEQ PO ×2 (09:35→17:17)
[2021-12-06] MEDS: PANTOPRAZOLE 40 MG TABLET PO (09:36)
[2021-12-06] MEDS: METOPROLOL SUCCINATE EXT REL 25 MG TABCR PO (09:36)
[2021-12-06] MEDS: FUROSEMIDE INJ 40 MG/4 ML VIAL IV PUSH (09:36)
[2021-12-06] MEDS: APIXABAN 5 MG TABLET PO ×2 (09:36→17:17)
[2021-12-06 10:19] LABS: Troponin I 0.047 ng/mL (0.000-0.034)
--- NOTE | 2021-12-06 13:47 | PM.PNCARD ---
Progress Note: A&P Assessment and Plan (1) CHF (congestive heart failure): Qualifiers: Heart failure chronicity: acute Heart failure type: combined systolic and diastolic Qualified Code(s): I50.41 - Acute combined systolic (congestive) and diastolic (congestive) heart failure Code(s): I50.9 - Heart failure, unspecified Status: Acute Assessment and Plan: Moderate to severe LV systolic dysfunction EF 30-35%. Patient was in the process of workup with his communications planner as an outpatient. Patient appears to be fairly euvolemic at this time. Monitor renal function electrolytes closely. Chest x-ray improved edema. Patient on room air able to lie flat at this time. -Continue support with medical therapy Entresto 24/26 mg twice daily but reduced to 12/13 mg twice daily given relative hypotension. Continue Toprol XL 25 mg daily. -Patient clinically appears to be rather dry on exam. Hold diuretic therapy for now. This also in light of progressive hyponatremia, hypokalemia and rising BUN and creatinine. Monitor sodium levels very closely. Monitor daily weight, accurate input and output. Discussed with hospitalist service. (2) Atrial fibrillation: Code(s): I48.91 - Unspecified atrial fibrillation Status: Acute Assessment and Plan: Atrial fibrillation persistent, heart rate controlled. Continue Toprol XL 25 mg daily. Continue Eliquis 5 mg twice daily. Telemetry. (3) Altered mental status: Code(s): R41.82 - Altered mental status, unspecified Status: Acute Assessment and Plan: Improved with discontinuation of [place]. Caution with concomitant Klonopin, Ambien narcotic medication likely explanation for altered mental status. (4) Hypokalemia: Code(s): E87.6 - Hypokalemia Status: Acute Assessment and Plan: 2.8 yesterday, 3.0 today. Patient will require more aggressive repletion, however care need to balance with his medications and renal insufficiency. Recheck BMP this afternoon, he received 40 mEq p.o. KCl additional this morning. Replete potassium level around 4.0. (5) Hyponatremia: Code(s): E87.1 - Hypo-osmolality and hyponatremia Status: Acute Assessment and Plan: Persistent, progressive likely exacerbated by diuresis and CHF/LV dysfunction. Hold Lasix for now Repeat BMP this afternoon for sodium and potassium. Stable. Continue to monitor closely particular with ongoing diuresis. (6) Acute kidney injury: Code(s): N17.9 - Acute kidney failure, unspecified Status: Acute Assessment and Plan: Check BMP. Creatinine increased yesterday from the day before. (7) Troponin level elevated: Code(s): R77.8 - Other specified abnormalities of plasma proteins Status: Acute Assessment and Plan: Minimally elevated in setting of AFib, CHF, acute kidney injury most likely type 2 infarct not acute coronary syndrome and/or plaque rupture. Monitor symptoms. EKG unchanged compared to prior tracings. Subjective Date/time seen: Date of service: 12/06/21 13:47 Follow-up for CHF, atrial fibrillation Patient relatively hypotensive this morning felt very dizzy getting up up from bed. Potassium remains low at 3.0, sodium as declined further to 122. Patient denies shortness of breath or chest pain. States he feels better overall in that regard. He is more alert not confused. Review of Systems Constitutional: Constitutional: Reports no additional constitutional complaints Eyes: Eyes: Reports no additional eye complaints ENT: Reports system reviewed and no additional complaints, except as documented Cardiovascular: Cardiovascular: Reports as per HPI and Reports dyspnea Respiratory: Respiratory: Reports dyspnea Gastrointestinal: Gastrointestinal: Reports no additional gastrointestinal complaints Musculoskeletal: Musculoskeletal: Reports no additional musculoskeletal complaints Integumentary/Breasts:
[2021-12-06 14:24] LABS: Anion Gap 12 mmol/L (8-16); Blood Urea Nitrogen 25 mg/dL (9-20); Calcium 7.8 mg/dL (8.4-10.2); Carbon Dioxide 25 mmol/L (22-30); Chloride 85 mmol/L (98-107); Estimated CRCL calculation 35 ml/min; Estimated Glomerular Filt Rate 37; Glucose 109 mg/dL (65-110); Potassium 3.1 mmol/L (3.4-5.0); Sodium 122 mmol/L (137-145)
[2021-12-06] MEDS: SODIUM BICARBONATE TAB 325 MG TABLET PO (17:17)
[2021-12-06] MEDS: ACETAMINOPHEN 325 MG TABLET 650 MG PO (17:36)
[2021-12-06] MEDS: clonazePAM (*CRX) 0.5 MG TABLET PO (20:29)
[2021-12-06] MEDS: ZOLPIDEM TARTRATE (*CRX) 5 MG TABLET PO (20:29)
[2021-12-07] VITALS (14 sets, daily range): BP systolic 96–116; BP diastolic 63–81; PULSE 49–108; RESP 18–22; TEMP 36.1–37.7; O2SAT 93–97
[2021-12-07 05:59] LABS: Basophils Percent Auto 0.8 % (0.2-1.2); Eosinophils Absolute Auto 0.1 K/mm3 (0-0.3); Eosinophils Percent Auto 3.1 % (0-4.4); Hematocrit 42.3 % (42.0-52.0); Hemoglobin 15.6 g/dL (14.0-18.0); Immature Granulocyte Absolute 0.01 K/mm3 (0.00-0.031); Immature Granulocyte Percent A 0.3 % (0-0.5); Lymphocytes Absolute Auto 1.28 K/mm3 (0.9-3.2); Lymphocytes Percent Auto 32.7 % (18.3-44.2); Mean Corpuscular HGB Conc 36.9 g/dl (32-36); Mean Corpuscular Hemoglobin 31.6 pg (26-34); Mean Corpuscular Volume 85.6 fl (80-100); Mean Platelet Volume 11.3 fl (7.4-10.4); Monocytes Absolute Auto 0.6 K/mm3 (0.1-0.6); Monocytes Percent Auto 14.8 % (2.6-8.5); Neutrophils Absolute Auto 1.9 K/mm3 (1.3-6.7); Neutrophils Percent Auto 48.3 % (45.5-73.1); Platelet Count Result 218 k/mm3 (150-375); Red Blood Count 4.94 M/mm3 (4.6-6.20); Red Cell Distribution Width 13.7 % (11.5-14.5); White Blood Count 3.9 K/mm3 (4.5-10.0)
[2021-12-07 06:14] LABS: Alanine Aminotransferase 26 U/L (6-50); Albumin Level 3.6 g/dL (3.5-5.1); Alkaline Phosphatase 53 U/L (38-126); Anion Gap 12 mmol/L (8-16); Aspartate Amino Transferase 33 U/L (17-59); Blood Urea Nitrogen 24 mg/dL (9-20); Carbon Dioxide 28 mmol/L (22-30); Chloride 84 mmol/L (98-107); Estimated CRCL calculation 37 ml/min; Estimated Glomerular Filt Rate 40; Glucose 94 mg/dL (65-110); Potassium 3.5 mmol/L (3.4-5.0); Sodium 124 mmol/L (137-145)
[2021-12-07] MEDS: PANTOPRAZOLE 40 MG TABLET PO (08:47)
[2021-12-07] MEDS: SACUBITRIL/VALSARTAN 12-13 MG TABLET 1 TAB PO ×2 (08:47→20:36)
[2021-12-07] MEDS: SODIUM BICARBONATE TAB 325 MG TABLET PO (08:47)
[2021-12-07] MEDS: METOPROLOL SUCCINATE EXT REL 25 MG TABCR PO (08:47)
[2021-12-07] MEDS: ATORVASTATIN 40 MG TABLET 80 MG PO (08:48)
[2021-12-07] MEDS: APIXABAN 5 MG TABLET PO ×2 (08:48→16:16)
[2021-12-07] MEDS: ASPIRIN 81 MG CHEWABLE TABLET PO (08:49)
--- NOTE | 2021-12-07 10:09 | PM.PNCARD ---
Progress Note: A&P Assessment and Plan (1) CHF (congestive heart failure): Qualifiers: Heart failure chronicity: acute Heart failure type: combined systolic and diastolic Qualified Code(s): I50.41 - Acute combined systolic (congestive) and diastolic (congestive) heart failure Code(s): I50.9 - Heart failure, unspecified Status: Acute Assessment and Plan: Moderate to severe LV systolic dysfunction EF 30-35%. Patient was in the process of workup with his database marketing manager as an outpatient. Patient appears to be fairly euvolemic at this time. Monitor renal function electrolytes closely. Chest x-ray improved edema. Patient on room air able to lie flat at this time. -Continue support with medical therapy Entresto 24/26 mg twice daily but reduced to 12/13 mg twice daily given relative hypotension. - Continue Toprol XL 25 mg daily. - Will cautiously add spironolactone 12.5mg daily -Continue to hold diuretic, persistent hyponatremia and hypokalemia. Looks euvolemic on exam. (2) Atrial fibrillation: Code(s): I48.91 - Unspecified atrial fibrillation Status: Acute Assessment and Plan: Atrial fibrillation persistent, heart rate controlled. Continue Toprol XL 25 mg daily. Continue Eliquis 5 mg twice daily. Telemetry. (3) Altered mental status: Code(s): R41.82 - Altered mental status, unspecified Status: Acute Assessment and Plan: Improved with discontinuation of [place]. Caution with concomitant Klonopin, Ambien narcotic medication likely explanation for altered mental status. (4) Hypokalemia: Code(s): E87.6 - Hypokalemia Status: Acute Assessment and Plan: 3.2 today. Given 40 mEq KCL p.o. this morning. Starting spironolactone as above. Replete potassium level around 4.0. Repeat BMP in a.m. (5) Hyponatremia: Code(s): E87.1 - Hypo-osmolality and hyponatremia Status: Acute Assessment and Plan: Persistent, progressive likely exacerbated by diuresis and CHF/LV dysfunction. Continue to hold lasix. (6) Acute kidney injury: Code(s): N17.9 - Acute kidney failure, unspecified Status: Acute Assessment and Plan: BUN/Cr downtrending (7) Troponin level elevated: Code(s): R77.8 - Other specified abnormalities of plasma proteins Status: Acute Assessment and Plan: Minimally elevated in setting of AFib, CHF, acute kidney injury most likely type 2 infarct not acute coronary syndrome and/or plaque rupture. Monitor symptoms. EKG unchanged compared to prior tracings. Subjective Date/time seen: 12/07/21 10:09 Cardiology follow up for CHF, Afib Feeling much better today, is able to ambulate without and dyspnea. Orthopnea has resolved. No chest pain. Review of Systems Constitutional: Constitutional: Reports no additional constitutional complaints Eyes: Eyes: Reports no additional eye complaints ENT: Reports system reviewed and no additional complaints, except as documented Cardiovascular: Cardiovascular: Reports as per HPI and Reports dyspnea Respiratory: Respiratory: Reports dyspnea Gastrointestinal: Gastrointestinal: Reports no additional gastrointestinal complaints Musculoskeletal: Musculoskeletal: Reports no additional musculoskeletal complaints Integumentary/Breasts: Skin/Breast: Reports system reviewed and no additional complaints, except as docu Neurologic: Reports system reviewed and no additional complaints, except as documented Endocrine: Endocrine: Reports no additional endocrine complaints Hematologic/Lymphatic: Hematologic/Lymphatic: Reports no additional hematologic/lymphatic complaints Allergic/Immunologic: Allergic/Immunologic: Reports no additional allergic/immunologic complaints Exam Const: General: comfortable and no acute distress Other: Alert and oriented times 3 appears alert very pleasant, chronic tracheostomy dry lips and oral mucosa HENMT: Mouth: Yes moist
[2021-12-07] MEDS: SODIUM CHLORIDE 0.9% IV 500 ML IV CONT (11:15)
[2021-12-07 14:08] LABS: Anion Gap 9 mmol/L (8-16); Blood Urea Nitrogen 22 mg/dL (9-20); Carbon Dioxide 28 mmol/L (22-30); Chloride 86 mmol/L (98-107); Estimated CRCL calculation 40 ml/min; Estimated Glomerular Filt Rate 43; Glucose 99 mg/dL (65-110); Potassium 3.2 mmol/L (3.4-5.0); Sodium 123 mmol/L (137-145)
--- NOTE | 2021-12-07 14:46 | PM.IMPN ---
Progress Note: A&P Assessment and Plan (1) Renal carcinoma: Code(s): C64.9 - Malignant neoplasm of unspecified kidney, except renal pelvis Status: Acute Assessment and Plan: Patient had nephrectomy Currently getting treatment It has advanced is a stage III Continue follow-up treatment outpatient (2) CHF (congestive heart failure): Qualifiers: Heart failure chronicity: acute Heart failure type: combined systolic and diastolic Qualified Code(s): I50.41 - Acute combined systolic (congestive) and diastolic (congestive) heart failure Code(s): I50.9 - Heart failure, unspecified Status: Acute Assessment and Plan: Appreciate cardiology consultation, will discontinue metoprolol and start carvedilol, as well as at Entresto, appreciate Cardiology recommendations, monitor with IV diuresis, anticipate discharge in 1-2 days 12/06: Chest x-ray showed improving edema, with slightly worsened sodium and creatinine as expected, appreciate cardiology consultation 12/07: Cardio recs pending. Sodium essentially unchanged with small fluid bolus, creat improved. Will add back salt tabs and cont to hold diuretics, recheck BMP and symptoms tomorrow, unsure of patient's baseline sodium. (3) Hyponatremia: Code(s): E87.1 - Hypo-osmolality and hyponatremia Status: Acute Assessment and Plan: Current sodium 125 Probably related to fluid overload Will hold off on fluids until tomorrow to see with the sodium comes back after Lasix Continue trend sodium Adjust therapy as indicated Consider Nephrology if needed 12/06: Sodium slightly worsened with diuresis, unsure of etiology I suspect patient is still hypervolemic and would expect sodium to improve with diuresis, will start sodium bicarb tabs today twice daily and reassess tomorrow, do not want to do fluids, suspect ins and outs are inaccurate, could consider fluid restriction 12/07: Sodium essentially unchanged, will continue to hold diuretics, add back salt tabs, and try to figure out baseline sodium. (4) Atrial fibrillation: Code(s): I48.91 - Unspecified atrial fibrillation Status: Acute Assessment and Plan: Currently in AFib with rate controlled Seems to be relatively new but not Patient is to be cardioverted next Currently on Eliquis which will be continued Eugene Vasc score 3 which is a moderate to high risk Continue aspirin and metoprolol (5) Hyperlipidemia: Code(s): E78.5 - Hyperlipidemia, unspecified Status: Acute Assessment and Plan: Continue atorvastatin 80 mg p.o. daily Subjective Date/time seen: 12/07/21 14:46 Review of Systems Review of Systems: All systems reviewed & are unremarkable except as noted in HPI and below Exam Narrative: ? General:??No acute distress, alert and oriented per baseline HEENT:? Atraumatic, normocephalic, mucous membranes moist CV:? Regular rate and rhythm, S1, S2 Lungs:? Good air entry, diminished at bases Abdomen:? Soft, nontender, nondistended Extremities:? Normal to inspection Skin:? No rashes noted, no lesions or wounds seen Psych:? Euthymic, normal affect Objective Data Vital Signs Vital Signs: Vital Signs - 24 hr 12/06/21 16:00 12/06/21 16:00 12/06/21 16:00 Temperature 97.5 F L Pulse Rate 93 92 Respiratory Rate 18 Blood Pressure 93/74 L Pulse Oximetry 93 Oxygen Delivery Room Air Fraction of Inspired Oxygen 12/06/21 17:03 12/06/21 18:00 12/06/21 20:00 Temperature 98.8 F 98.3 F Pulse Rate 82 85 97 Respiratory Rate 16 22 H Blood Pressure 94/75 L 94/74 L Pulse Oximetry 94 94 Oxygen Delivery Fraction of Inspired Oxygen 12/06/21 20:00 12/06/21 20:00 12/06/21 22:00 Temperature Pulse Rate 89 89 71 Respiratory Rate 22 H Blood Pressure Pulse Oximetry 94 Oxygen Delivery Room Air Fraction of Inspired Oxygen
[2021-12-07] MEDS: POTASSIUM CHLORIDE 20 MEQ TABLET 40 MEQ PO (16:15)
[2021-12-07] MEDS: ZOLPIDEM TARTRATE (*CRX) 5 MG TABLET PO (20:36)
[2021-12-07] MEDS: clonazePAM (*CRX) 0.5 MG TABLET PO (20:36)
[2021-12-08] VITALS (12 sets, daily range): BP systolic 100–113; BP diastolic 67–68; PULSE 54–94; RESP 16–22; TEMP 36.6–36.9; O2SAT 95–98
--- NOTE | 2021-12-08 08:52 | PM.PNCARD ---
Progress Note: A&P Assessment and Plan (1) CHF (congestive heart failure): Qualifiers: Heart failure chronicity: acute Heart failure type: combined systolic and diastolic Qualified Code(s): I50.41 - Acute combined systolic (congestive) and diastolic (congestive) heart failure <DEDE Rondon - Last Filed: 12/08/21 10:07> Code(s): I50.9 - Heart failure, unspecified <DEDE Rondon - Last Filed: 12/08/21 10:07> Status: Acute <DEDE Rondon - Last Filed: 12/08/21 10:07> Assessment and Plan: Moderate to severe LV systolic dysfunction EF 30-35%. Patient was in the process of workup with his online producer as an outpatient. Patient appears to be fairly euvolemic at this time. Monitor renal function electrolytes closely. Chest x-ray improved edema. Patient on room air able to lie flat at this time. -Continue support with medical therapy Entresto 24/26 mg twice daily but reduced to 12/13 mg twice daily given relative hypotension. - Continue Toprol XL 25 mg daily. - Continue spironolactone -Continue to hold diuretic, persistent hyponatremia and hypokalemia. Looks euvolemic on exam. - OK for discharge today from a cardiac perspective with close outpatient follow up in our office and BMP in one week. <DEDE Rondon - Last Filed: 12/08/21 10:07> (2) Atrial fibrillation: Code(s): I48.91 - Unspecified atrial fibrillation <DEDE Rondon - Last Filed: 12/08/21 10:07> Status: Acute <DEDE Rondon - Last Filed: 12/08/21 10:07> Assessment and Plan: Atrial fibrillation persistent, heart rate controlled. Continue Toprol XL 25 mg daily. Continue Eliquis 5 mg twice daily. Telemetry. <DEDE Rondon - Last Filed: 12/08/21 10:07> (3) Altered mental status: Code(s): R41.82 - Altered mental status, unspecified <DEDE Rondon - Last Filed: 12/08/21 10:07> Status: Acute <Key Canela APN-C - Last Filed: 12/08/21 10:07> Assessment and Plan: Improved with discontinuation of [place]. Caution with concomitant Klonopin, Ambien narcotic medication likely explanation for altered mental status. <Key Canela APN-C - Last Filed: 12/08/21 10:07> (4) Hypokalemia: Code(s): E87.6 - Hypokalemia <DANA RondonN-C - Last Filed: 12/08/21 10:07> Status: Acute <Key Canela APN-C - Last Filed: 12/08/21 10:07> Assessment and Plan: BMP from today pending. Replace K+ as appropriate with goal of 4.0. <Key Canela APN-C - Last Filed: 12/08/21 10:07> (5) Hyponatremia: Code(s): E87.1 - Hypo-osmolality and hyponatremia <DANA RondonN-C - Last Filed: 12/08/21 10:07> Status: Acute <Key Canela APN-C - Last Filed: 12/08/21 10:07> Assessment and Plan: Persistent, progressive likely exacerbated by diuresis and CHF/LV dysfunction. Continue to hold lasix. <Key Canela APN-C - Last Filed: 12/08/21 10:07> (6) Acute kidney injury: Code(s): N17.9 - Acute kidney failure, unspecified <Key Canela APN-C - Last Filed: 12/08/21 10:07> Status: Acute <Key Canela APN-C - Last Filed: 12/08/21 10:07> Assessment and Plan: BUN/Cr downtrending <Key Canela APN-C - Last Filed: 12/08/21 10:07> (7) Troponin level elevated: Code(s): R77.8 - Other specified abnormalities of plasma proteins <Key Canela APN-Lakshmi - Last Filed: 12/08/21 10:07> Status: Acute <DEDE Rondon - Last Filed: 12/08/21 10:07> Assessment and Plan: Minimally elevated in setting of AFib, CHF, acute kidney injury most likely type 2 infarct not acute coronary syndrome and/or plaque rupture. Monitor symptoms. EKG unchanged compared to prior tracings. <DEDE Rondon - Last Filed: 12/08/21 10:07> Assessment and Plan: I discussed the patient management. I reviewed Key Canela
[2021-12-08] MEDS: SACUBITRIL/VALSARTAN 12-13 MG TABLET 1 TAB PO (08:57)
[2021-12-08] MEDS: ATORVASTATIN 40 MG TABLET 80 MG PO (08:57)
[2021-12-08] MEDS: ASPIRIN 81 MG CHEWABLE TABLET PO (08:57)
[2021-12-08] MEDS: SPIRONOLACTONE 12.5 MG TABLET PO (08:57)
[2021-12-08] MEDS: PANTOPRAZOLE 40 MG TABLET PO (08:58)
[2021-12-08] MEDS: METOPROLOL SUCCINATE EXT REL 25 MG TABCR PO (08:58)
[2021-12-08] MEDS: APIXABAN 5 MG TABLET PO (08:58)
[2021-12-08 12:16] LABS: Anion Gap 8 mmol/L (8-16); Blood Urea Nitrogen 15 mg/dL (9-20); Calcium 8.4 mg/dL (8.4-10.2); Carbon Dioxide 26 mmol/L (22-30); Chloride 91 mmol/L (98-107); Estimated CRCL calculation 45 ml/min; Estimated Glomerular Filt Rate 50; Glucose 106 mg/dL (65-110); Potassium 3.7 mmol/L (3.4-5.0); Sodium 125 mmol/L (137-145)
[2021-12-08] MEDS: POTASSIUM CHLORIDE 20 MEQ TABLET 40 MEQ PO (12:23)
--- NOTE | 2021-12-08 13:25 | PM.DS ---
DS: Admitting Diagnosis Discharge Date December 08, 2021 Admitting Diagnosis shortness of breath DS: Discharge Diagnosis Discharge Diagnosis (1) Renal carcinoma: Code(s): C64.9 - Malignant neoplasm of unspecified kidney, except renal pelvis Status: Acute Assessment and Plan: Patient had nephrectomy Currently getting treatment It has advanced is a stage III Continue follow-up treatment outpatient (2) CHF (congestive heart failure): Qualifiers: Heart failure chronicity: acute Heart failure type: combined systolic and diastolic Qualified Code(s): I50.41 - Acute combined systolic (congestive) and diastolic (congestive) heart failure Code(s): I50.9 - Heart failure, unspecified Status: Acute Assessment and Plan: Appreciate cardiology consultation, will discontinue metoprolol and start carvedilol, as well as at Entresto, appreciate Cardiology recommendations, monitor with IV diuresis, anticipate discharge in 1-2 days 12/06: Chest x-ray showed improving edema, with slightly worsened sodium and creatinine as expected, appreciate cardiology consultation 12/07: Cardio recs pending. Sodium essentially unchanged with small fluid bolus, creat improved. Will add back salt tabs and cont to hold diuretics, recheck BMP and symptoms tomorrow, unsure of patient's baseline sodium. (3) Hyponatremia: Code(s): E87.1 - Hypo-osmolality and hyponatremia Status: Acute Assessment and Plan: Current sodium 125 Probably related to fluid overload Will hold off on fluids until tomorrow to see with the sodium comes back after Lasix Continue trend sodium Adjust therapy as indicated Consider Nephrology if needed 12/06: Sodium slightly worsened with diuresis, unsure of etiology I suspect patient is still hypervolemic and would expect sodium to improve with diuresis, will start sodium bicarb tabs today twice daily and reassess tomorrow, do not want to do fluids, suspect ins and outs are inaccurate, could consider fluid restriction 12/07: Sodium essentially unchanged, will continue to hold diuretics, add back salt tabs, and try to figure out baseline sodium. (4) Atrial fibrillation: Code(s): I48.91 - Unspecified atrial fibrillation Status: Acute Assessment and Plan: Currently in AFib with rate controlled Seems to be relatively new but not Patient is to be cardioverted next Currently on Eliquis which will be continued Eugene Vasc score 3 which is a moderate to high risk Continue aspirin and metoprolol (5) Hyperlipidemia: Code(s): E78.5 - Hyperlipidemia, unspecified Status: Acute Assessment and Plan: Continue atorvastatin 80 mg p.o. daily DS: Summary Hospital Course Hospital Course: 71-year-old male with past medical history of PE, laryngectomy with trach placement, renal carcinoma status post nephrectomy presenting with shortness of breath the last few days. He saw cardiology ordered a stress test but he presented to the hospital before he was able to complete the outpatient stress test. He has been on Eliquis since July for a PE. He was thought to be in heart failure and admitted with a Cardiology consultation on IV diuresis. He was noted to have significant hyponatremia with an unknown baseline. Cardiology recommended continued diuresis and thought that he was hypervolemic and hyponatremia would resolve with diuresis. He was also noted to have mild acute kidney injury. His sodium did improve somewhat with diuresis and his creatinine improved as well. However, neither lab value normalized. Cardiology thought he was as euvolemic as he could get with his EF of 30% and recommended discharge with outpatient oral diuresis and repeat BMP that they would monitor. Time Spent with Patient Time attestation: Total time spent providing and/or coordinating discharge services: Exam Narr
== END 2021-12-08 14:20 | disposition home or self-care (01) | DRG 292 ==
LOC: ANHED 18:34 → ANHIMU 19:01
PROVIDERS: Internal Medicine Cardiovascular Disease; Nurse Practitioner; Admitting Provider Family Medicine; Emergency Provider Emergency Medicine; Visit Provider Student in an Organized Health Care Education/Training Program
DX: I50.41 Acute combined systolic (congestive) and diastolic (congestive) heart failure (principal); C64.9 Malignant neoplasm of unspecified kidney, except renal pelvis; E87.1 Hypo-osmolality and hyponatremia; N17.9 Acute kidney failure, unspecified; I48.91 Unspecified atrial fibrillation; E87.6 Hypokalemia; E78.5 Hyperlipidemia, unspecified; K21.9 Gastro-esophageal reflux disease without esophagitis; R77.8 Other specified abnormalities of plasma proteins; R41.82 Altered mental status, unspecified; Z20.822 Contact with and (suspected) exposure to COVID-19; Z87.828 Personal history of other (healed) physical injury and trauma; Z79.01 Long term (current) use of anticoagulants; Z93.0 Tracheostomy status; Z90.02 Acquired absence of larynx; Z87.891 Personal history of nicotine dependence; Z86.711 Personal history of pulmonary embolism
CPT/HCPCS: 36415; 36600; 71045; 71046; 71275; 80048; 80053; 82805; 82948; 83735; 83880; 84484; 85025; 85380; 93005; 99285; A4629; A9270; C8929; C9803; J1940; J2405; J2765; J7040; Q9957; Q9967; U0003; U0005

== ENCOUNTER 2025-02-03 11:48 | Emergency (ER) | payer MEDICARE, SELFPAY ==
--- NOTE | ~2025-02-03 | CT_ITS ---
CTA CHEST CLINICAL HISTORY: Exertional SOB . COMPARISON: CT chest 01/25/2025 TECHNIQUE: Helical CTA performed from thoracic inlet to upper abdomen IV contrast information not listed in PACS Coronal, sagittal reformats. Multiplanar MIPS CT images acquired with automatic exposure control for dose reduction DLP: 492 mGy-cm FINDINGS: Respiratory motion artifact could obscure small distal PE. Tracheostomy. Pulmonary arteries: No PE. Thoracic Aorta: No dissection or aneurysm. Heart/pericardium: Cardiomegaly. RV/LV ratio: Normal. Lungs/Pleura: Small left effusion, slightly smaller. Mild bibasilar atelectasis. Tracheobronchial tree: Patent. Nodes: No enlarged nodes. Bones: No acute bony abnormality. Soft tissues: Unchanged mild anterior mediastinal postoperative fat stranding. Visualized upper abdomen: Right nephrectomy. IMPRESSION: 1. No PE identified, nor other acute cardiopulmonary findings. 2. Persistent small left pleural effusion. Reviewed, dictated and finalized at location R.
[2025-02-03 11:49] VITALS: BP 115/76; PULSE 87; RESP 20; TEMP 36.9; O2SAT 100
--- NOTE | 2025-02-03 11:51 | ECG_ITS ---
Test Date: 2025-02-03 11:54:11 Measurements Intervals [place] Rate: 82 P: 72 NV: 203 QRS: -53 QRSD: 149 T: -34 QT: 396 QTc: 463 Interpretive Statements SINUS RHYTHM WITH OCCASIONAL SUPRAVENTRICULAR PREMATURE COMPLEXES LEFT AXIS DEVIATION [QRS AXIS < -30] RIGHT BUNDLE BRANCH BLOCK [120+ ms QRS DURATION, UPRIGHT V1, 40+ ms S IN I/aVL/V4/V5/V6] No previous ECG available for comparison Electronically Signed On 02-04-2025 14:11:21 CDT by Charli Christian M.D.
[2025-02-03 11:57] VITALS: O2SAT 100
[2025-02-03 12:07] VITALS: BP 114/77; PULSE 83; RESP 18; O2SAT 100
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
[2025-02-03 12:10] LABS: Hematocrit 29.8 % (42.0-52.0); Hemoglobin 9.4 g/dL (14.0-18.0); Immature Granulocyte Percent A 0.4 % (0-0.5); Lymphocytes Absolute Auto 0.67 K/mm3 (0.9-3.2); Mean Corpuscular HGB Conc 31.5 g/dl (32-36); Mean Corpuscular Hemoglobin 30.9 pg (26-34); Mean Corpuscular Volume 98.0 fl (80-100); Nucleated Red Blood Cells Absolute Auto 0.000 K/mm3 (0.0-0.012); Nucleated Red Blood Cells Perc 0.0 % (0.0-0.2); Platelet Count Result 184 k/mm3 (150-375); Red Blood Count 3.04 M/mm3 (4.6-6.20); White Blood Count 7.2 K/mm3 (4.5-10.0)
[2025-02-03 12:20] LABS: Alanine Aminotransferase 22 U/L (6-50); Albumin Level 3.6 g/dL (3.5-5.1); Alkaline Phosphatase 66 U/L (38-126); Anion Gap 10 mmol/L (4-12); Aspartate Amino Transferase 27 U/L (17-59); Bilirubin,Total 0.6 mg/dL (0.2-1.3); Blood Urea Nitrogen 13 mg/dL (9-20); Calcium 8.2 mg/dL (8.4-10.2); Carbon Dioxide 20 mmol/L (22-30); Chloride 108 mmol/L (98-107); Estimated CRCL calculation 46 ml/min; Estimated Glomerular Filt Rate 54; Glucose 97 mg/dL (65-110); Potassium 3.7 mmol/L (3.4-5.0); Sodium 138 mmol/L (137-145); Total Protein 6.6 g/dL (6.3-8.2)
[2025-02-03 12:23] LABS: INR 1.1; Prothrombin Time 14.6 Seconds (11.1-14.7)
[2025-02-03 12:24] LABS: Partial Thromboplastin Time 30.1 Seconds (22.3-36.8)
[2025-02-03 12:29] LABS: NT Pro B Type Natriuretic Pept 2370 pg/mL (19.9-100)
[2025-02-03 12:50] LABS: Influenza A QL RT-PCR Negative (Negative); Influenza B QL RT-PCR Negative (Negative); RSV RNA, RT-PCR Negative (Negative); SARS-CoV-2 RNA PCR Negative (Negative)
[2025-02-03] MEDS: FUROSEMIDE INJ 40 MG/4 ML VIAL IV PUSH (13:25)
[2025-02-03 13:31] VITALS: BP 107/78; PULSE 90; RESP 18; O2SAT 100
== END 2025-02-03 14:36 | disposition home or self-care (01) ==
PROVIDERS: Emergency Provider Emergency Medicine; PCP Family Medicine
DX: R06.00 Dyspnea, unspecified (principal); Z20.822 Contact with and (suspected) exposure to COVID-19; I10 Essential (primary) hypertension; I25.10 Atherosclerotic heart disease of native coronary artery without angina pectoris; K21.9 Gastro-esophageal reflux disease without esophagitis; E78.5 Hyperlipidemia, unspecified; Z79.01 Long term (current) use of anticoagulants; Z86.711 Personal history of pulmonary embolism; Z85.528 Personal history of other malignant neoplasm of kidney
CPT/HCPCS: 36415; 71275; 80053; 83880; 85025; 85610; 85730; 87637; 93005; 96374; 99284; J1938; Q9967

== ENCOUNTER 2025-02-18 12:23 | Emergency (ER) | payer MEDICARE, SELFPAY ==
--- NOTE | ~2025-02-18 | XR_ITS ---
EXAMINATION: XR chest 2V, 02/18/2025 14:55 CDT HISTORY: SOB COMPARISON: No comparisons available. Technique: 2 views obtained. Findings: The lungs are clear, no effusion. No pneumothorax. Heart is normal size. Mediastinal and hilar contours are within normal limits. Poststernotomy Impression: No acute cardiopulmonary abnormality. Reviewed, dictated and finalized at location P. Impression: No acute cardiopulmonary abnormality.
[2025-02-18 12:36] VITALS: BP 104/73; PULSE 110; RESP 24; TEMP 36.6; O2SAT 96
[2025-02-18 13:08] VITALS: BP 120/80; PULSE 100; RESP 22; O2SAT 95; O2SAT 97
[2025-02-18 13:15] VITALS: BP 116/79; PULSE 99; RESP 18; O2SAT 95
--- OUTSIDE RECORDS SUMMARY | 2025-02-18 13:22 | XMS_ITS | Encounter Summary ---
Author Organization [facility] Healthcare Address [address] [place] [address] Care Team Providers Care Glass Blowing Instructor Name Role Phone Mykel Mccauley DO Unavailable Yaya Elizondo MD Primary Care Provider Micheal Cabral MD Unavailable [phone] Yaya Elizondo MD Primary Care Provider Jeferson Elena MD Primary Care Provider Artie Henderson MD Unavailable Ana M Renteria MD Unavailable [phone] Shiva Barrientos MD Unavailable Aileen Griffin NP Unavailable Parth Dalton MD Unavailable Encounter Details Date Type Department Care Team (Late st Contact Info) Description 04/05/2022 Documentation [facility] Social Work [address] [place] [address] Alivia Pham MSW Social History Tobacco Use Types Packs/Day Years Used Date Smoking Tobacco: Former Cigarettes 1 40 1 962 - 2002 Smokeless Tobacco: Never Social Connection and Isolation Panel Answer Date Recorded In a typical week, how many times do you talk on the phone with family, friends, or neighbors? Three times a week 03/30/2022 How often do you get togethe r with friends or relatives? Twice a week 03/30/2022 How often do you attend chur ch or protestant services? Never 03/30/2022 Do you belong to any clubs o r organizations such as hindu groups, unions, fraternal or athletic groups, or school groups? Yes 03/30/2022 How often do you attend meet ings of the clubs or organizations you belong to? Patient declined 03/30/2022 Are you , , di vorced, , never , or living with a partner? 03/30/2022 AUDIT-C Answer Date Recorded Q1: How often do you have a drink containing alcohol? 4 or more times a week 03/09/2022 Q2: How many drinks containi ng alcohol do you have on a typical day when you are drinking? 1 or 2 Q3: How often do you have si x or more drinks on one occasion? Never 03/09/2022 Overall Financial Resource Strain (CARDIA) Answe r Date Recorded How hard is it for you to pa y for the very basics like food, housing, medical care, and heating? Not hard at all 03/30/2022 Hunger Vital Sign Answer Date Recorded Within the past 12 months, y ou worried that your food would run out before you got the money to buy more. Never true 03/30/20 22 Within the past 12 months, t he food you bought just didn't last and you didn't have money to get more. Never true 03/30/2022 PRAPARE - Transportation Answer Date Re corded In the past 12 months, has l ack of transportation kept you from medical appointments or from getting medications? No 03/16 In the past 12 months, has l ack of transportation kept you from meetings, work, or from getting things needed for daily living? No 03/30/2022 Housing Stability Vital Sign Answer Clinton e Recorded In the last 12 months, was t here a time when you were not able to pay the mortgage or rent on time? No 03/30/2022 In the last 12 months, how many places have you lived? 1 03/30/2022 In the last 12 months, was t here a time when you did not have a steady place to sleep or slept in a nursing home (including now)? 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 SW notified. Problem: Ensure acute medical needs are met and that patient has a safe discharge plan. Goal: Secure a facility that patient/family are agreeable with and ensure patient has continuum of care. Discharge Plan: [facility] SW was following for SDOH. Patient screened by [facility] for Medicaid application assistance. Discharge status TBD. FARRUKH [place] CATCHER documented in this encounter Plan of Treatment Not on file documented as of this encounter Visit Diagnoses Not on filedocumented in this encounter Additional Health Concerns Infection Onset Date Last Indicated Resolved Time COVID: Recovered Comment:Added based on recent COVID infection. 03/23/2022 03/23/2022 06/21/2022 3:[address] COVID: Suspected 07/01/2022 07/01/2022 07/01/2022 5:41 PM BAR CATCHER COVID: Suspected 07/03/2022 07/03/2022 07/03/2022 1:37 PM BAR CATCHER COVID: Suspected 07/10/2024 07/10/2024 07/10/2024 2:32 PM BAR CATCHER Ring Surveillance: Krish dumont Comment:This flag is used to identify patient who are in house who are being monitored by Infection Prevention. If the patient is discharged and a swab has not been collected, if patient returns to hospital within 7 days a surveillance swab is to be collected (Reach out to IP for order) Patient does NOT need isolation, patient can travel off the floor. 12/28/2024 12/28/2024 01/03/2025 8:36 PM C DT Ring Surveillance: C. auris 01/05/2025 01/05/2025 01/19/2025 5:57 PM CDT documented as of this encounter Care Teams Glass Blowing Instructor Relationship Specialty Start Date End Date Yaya Elizondo MD [address] [facility], [address] [address] PCP - General Family Medicine 10/07/21 01/23/23 Yaya Elizondo MD [address] [place] [address] PCP - General Family Medicine 01/24/23 02/16/23 Jeferson Elena MD [address] [facility] [address] [place] [address] PCP - General Family Medicine 02/17/23 Mykel Mccauley DO [address] [facility], [address] [address] Medical Oncologist/Hematologis t Hematology and Oncology 08/28/21 Micheal Cabral MD [address] [place] [address] Consulting Physician General Surgery 08/11/22 Artie Henderson MD [address] [facility] [address] [place] [address] Referring Physician Cardiology 02/17/23 Ana M Renteria MD [address] [facility] [address] [place] [address] Referring Physician Cardiology 11/21/23 [place] [address] [facility] [address], [place] [address] Consulting Physician Endocrinology Diabetes & Metabolism 11/21/23 [place] [address] [facility] [address], [place] [address] Nurse Practitioner Endocrinology Diabetes & Metabolism 11/21/23 Parth Dalton MD [address] [facility] [id number] [place] [address] Surgeon Cardiothoracic Surgery 12/07/24 documented as of this encounter
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
--- OUTSIDE RECORDS SUMMARY | 2025-02-18 13:22 | XMS_ITS | Encounter Summary ---
Author Organization [facility] Address [address] [place] [address] Phone Care Team Providers Care Venetian Blind Installer Name Role Phone Parisa, Mykel Siddiqui DO Unavailable [phone] Yaya Elizondo MD Primary Care Provider Micheal Cabral MD Unavailable [phone] Yaya Elizondo MD Primary Care Provider Jeferson Elena MD Primary Care Provider [phone] Artie Henderson MD Unavailable Ana M Renteria MD Unavailable [phone] Shiva Barrientos MD Unavailable Aileen Griffin NP Unavailable Parth Dalton MD Unavailable Encounter Details Date Type Department Care Team (Late st Contact Info) Description 07/02/2022 Telephone [facility] Medicine Cardiology [address] [facility] 8th [place] [address] [place] [address] Artie Henderson MD [address] [facility] [address] [place] [address] Social History Tobacco Use Types Packs/Day Years Used Date Smoking Tobacco: Former Cigarettes 1 40 1 962 - 2002 Smokeless Tobacco: Never Social Connection and Isolation Panel Answer Date Recorded In a typical week, how many times do you talk on the phone with family, friends, or neighbors? Three times a week 07/03/19 How often do you get togethe r with friends or relatives? Three times a week 07/03/2022 How often do you attend chur or sikh services? Never 07/03/2022 Do you belong to any clubs o r organizations such as methodist groups, unions, fraternal or athletic groups, or school groups? Yes 07/03/2022 How often do you attend meet ings of the clubs or organizations you belong to? 1 to 4 times per year 07/03/2022 Are you , , di vorced, , never , or living with a partner? 07/03/2022 AUDIT-C Answer Date Recorded Q1: How often do you have a drink containing alcohol? 4 or more times a week 07/01/2022 Q2: How many drinks containi ng alcohol do you have on a typical day when you are drinking? 1 or 2 3 Q3: How often do you have si x or more drinks on one occasion? Never 07/01/2022 Overall Financial Resource Strain (CARDIA) Answe r Date Recorded How hard is it for you to pa y for the very basics like food, housing, medical care, and heating? Not hard at all 07/03/2022 Hunger Vital Sign Answer Date Recorded Within the past 12 months, y ou worried that your food would run out before you got the money to buy more. Never true 07/03/19 23 Within the past 12 months, t he food you bought just didn't last and you didn't have money to get more. Never true 07/03/2022 PRAPARE - Transportation Answer Date Re corded In the past 12 months, has l ack of transportation kept you from medical appointments or from getting medications? No 06/16 In the past 12 months, has l ack of transportation kept you from meetings, work, or from getting things needed for daily living? No 07/03/2022 Housing Stability Vital Sign Answer Clinton e Recorded In the last 12 months, was t here a time when you were not able to pay the mortgage or rent on time? No 07/03/2022 In the last 12 months, how many places have you lived? 1 07/03/2022 In the last 12 months, was t here a time when you did not have a steady place to sleep or slept in a chcf (including now)? 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 auris Comment:This flag is used to identify patient [...] documented as of this encounter Care Teams Venetian Blind Installer Relationship Specialty Start Date End Date Yaya Elizondo MD [address] [facility] MEDICAL ONCOLOGY, [facility] [address] [place] [address] PCP - General Family Medicine 10/07/21 01/23/23 Yaya Elizondo MD [address] [place] [address] PCP - General Family Medicine 01/24/23 02/16/23 Jeferson Elena MD [address] [place] [address] PCP - General Family Medicine 02/17/23 Mykel Mccauley DO [address] [place] [address] MEDICAL ONCOLOGY, [address] [place] [address] Medical Oncologist/Hematologis t Hematology and Oncology 08/28/21 Micheal Cabral MD [address] [facility] [address] [place] [address] Consulting Physician General Surgery 08/11/22 Artie Henderson MD [address] [place] [address] Referring Physician Cardiology 02/17/23 Ana M Renteria MD [address] [place] [address] Referring Physician Cardiology 11/21/23 [place] [address] [address] Consulting Physician Endocrinology Diabetes & Metabolism 11/21/23 [place] [address] [address] Nurse Practitioner Endocrinology Diabetes & Metabolism 11/21/23 Parth Dalton MD [facility] [address] [place] [address] Surgeon Cardiothoracic Surgery 12/07/24 documented as of this encounter
--- OUTSIDE RECORDS SUMMARY | 2025-02-18 13:22 | XMS_ITS | Encounter Summary ---
Author Organization [facility] Address [address] [place] [address] Care Team Providers Care Olive Packer Name Role Phone Mykel Mccauley DO Unavailable [phone] Micheal Cabral MD Unavailable [phone] Jeferson Elena MD Primary Care Provider [phone] Artie Henderson MD Unavailable Ana M Renteria MD Unavailable [phone] Shiva Barrientos MD Unavailable Aileen Griffin NP Unavailable Parth Dalton MD Unavailable Reason for Visit * Reason Onset Date Comments Medical Question/Miscellaneous 01/31/2025 Encounter Details Date Type Department Care Team (Late st Contact Info) Description 01/31/2025 Telephone [facility] Primary Care at [place] [address] [place] [address] Jeferson Elena MD [address] [place] [address] [address] [place] [address] Medical Question/Miscellaneous Social History Tobacco Use Types Packs/Day Years [...] often do you attend chur ch or catholic services? Never 08/24/2022 Do you belong to any clubs o r organizations such as buddhist groups, unions, fraternal or athletic groups, or [...] slept in a chcf (including now)? No 08/24/2022 PHQ-9 Answer Date [...] often do you attend chur ch or catholic services? Never 01/06/2025 Do you belong to any clubs o r organizations such as buddhist groups, unions, fraternal or athletic groups, or [...] any time in the past 12 m [facility], were you homeless or living in a chcf (including now)? No 01/06/2025 [facility] Utilities Answer Date Recorded In the past 12 months has [employer] electric, gas, oil, or water company threatened to shut off services in your home? No 01/06/2025 Personal Safety Answer Date Recorded Have you ever been in or are you currently in a harmful physical or emotional relationship or is someone making you feel afraid or unsafe? 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 Does message need to be routed? Yes-FYI Only documented in this encounter Plan of Treatment Not on file documented as of this encounter Visit Diagnoses Not on filedocumented in this encounter Care Teams Olive Packer Relationship Specialty Start Date End Date Jeferson Elena MD [address] [facility] [address] [place] [address] PCP - General Family Medicine 02/17/23 Mykel Mccauley DO [facility]8 [facility] MEDICAL ONCOLOGY, [facility] [address] [place] [address] Medical Oncologist/Hematologis t Hematology and Oncology 08/28/21 Micheal Cabral MD [address] [facility] [address] [place] [address] Consulting Physician General Surgery 08/11/22 Artie Henderson MD [address] [facility] [address] [place], [place] [address] Referring Physician Cardiology 02/17/23 Ana M Renteria MD [address] [facility] [address] [place], [place] [address] Referring Physician Cardiology 11/21/23 [place] [address] [facility] [address], [place] [address] Consulting Physician Endocrinology Diabetes & Metabolism 11/21/23 [place] [address] [address] Nurse Practitioner Endocrinology Diabetes & Metabolism 11/21/23 Parth Dalton MD [address] [place] [address] Surgeon Cardiothoracic Surgery 12/07/24 documented as of this encounter
--- OUTSIDE RECORDS SUMMARY | 2025-02-18 13:22 | XMS_ITS | Encounter Summary ---
Author Organization [facility] Address [address] [place] [address] Care Team Providers Care Marine Electronics Technician Name Role Phone Mykel Mccauley DO Unavailable Micheal Cabral MD Unavailable [phone] Jeferson Elena MD Primary Care Provider Artie Henderson MD Unavailable Ana M Renteria MD Unavailable Shiva Barrientos MD Unavailable Aileen Griffin NP Unavailable Parth Dalton MD Unavailable [phone] Reason for Visit * Reason Onset Date Comments Symptom Based Call 02/11/2025 Encounter Details Date Type Department Care Team (Late st Contact Info) Description 02/11/[address] [facility] Primary Care at [place] [address] [place] [address] Jeferson Elena MD [address] [place] [address] [address] [place] [address] Symptom Based Call Social History Tobacco Use Types Packs/Day Years [...] often do you attend chur ch or hoahaoism services? Never 08/24/2022 Do you belong to any clubs o r organizations such as orthodox groups, unions, fraternal or athletic groups, or [...] place to sleep or slept in a long-term (including now)? No 08/24/2022 PHQ-9 Answer Date [...] often do you attend chur ch or hoahaoism services? Never 01/06/2025 Do you belong to any clubs o r organizations such as orthodox groups, unions, fraternal or athletic groups, or [...] any time in the past 12 m [facility], were you homeless or living in a long-term (including now)? 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 Warm transfer. Does message need to be routed? No documented in this encounter Plan of Treatment Not on file documented as of this encounter Visit Diagnoses Not on filedocumented in this encounter Care Teams Marine Electronics Technician Relationship Specialty Start Date End Date Jeferson Elena MD [address] [facility] [address] [place] [address] PCP - General Family Medicine 02/17/23 Mykel Mccauley DO [address] [place] [address] MEDICAL ONCOLOGY, [facility] [address] [place] [address] Medical Oncologist/Hematologis t Hematology and Oncology 08/28/21 Micheal Cabral MD [address] [facility] [address] [place] [address] Consulting Physician General Surgery 08/11/22 Artie Henderson MD [address] [place] [address] Referring Physician Cardiology 02/17/23 Ana M Renteria MD [address] [place] [address] Referring Physician Cardiology 11/21/23 [place] [address] [facility] [address] [place] [address] Consulting Physician Endocrinology Diabetes & Metabolism 11/21/23 [place] [address] [facility] [address] [place] [address] Nurse Practitioner Endocrinology Diabetes & Metabolism 11/21/23 Parth Dalton MD [address] [place] [address] Surgeon Cardiothoracic Surgery 12/07/24 documented as of this encounter
--- OUTSIDE RECORDS SUMMARY | 2025-02-18 13:22 | XMS_ITS | Encounter Summary ---
Author Organization [facility] Address [address] [facility] [address] [place] [address] Phone Care Team Providers Care Blocklayer Name Role Phone Mykel Mccauley DO Unavailable [phone] Micheal Cabral MD Unavailable [phone] Jeferson Elena MD Primary Care Provider Artie Henderson MD Unavailable Ana M Renteria MD Unavailable Shiva Barrientos MD Unavailable Aileen Griffin NP Unavailable Parth Dalton MD Unavailable [phone] Reason for Visit * Reason Onset Date Comments Symptom Based Call 02/13/2025 Encounter Details Date Type Department Care Team (Late st Contact Info) Description 02/13/2025 Telephone [facility]acic [facility] Advanced Medicine 8th Floor [id number] [place] [address] Parth Dalton MD [address] [facility] [id number] [place] [address] Symptom Based Call Social History Tobacco Use [...] often do you attend chur ch or yarsani services? Never 08/24/2022 Do you belong to any clubs o r organizations such as sikh groups, unions, fraternal or athletic groups, or [...] place to sleep or slept in a custodial (including now)? No 08/24/2022 PHQ-9 Answer Date [...] often do you attend chur ch or yarsani services? Never 01/06/2025 Do you belong to any clubs o r organizations such as sikh groups, unions, fraternal or athletic groups, or [...] any time in the past 12 m [facility], were you homeless or living in a custodial (including now)? No 01/06/2025 [facility] Utilities Answer Date Recorded In the past 12 months has th e [employer], gas, oil, or water [employer] threatened to shut off services in your home? No 01/06/2025 Personal Safety Answer Date Recorded Have you ever been in or are you currently in a harmful physical or emotional relationship or is someone making you feel afraid or unsafe? 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 Does message need to be routed? Yes-Action Needed * Telephone Encounter - Ana Sanchez NP - 02/13/2025 4:29 PM CDT 02/13/25: spoke with pt. States he also spoke with Dr. Elena's office as well. He has had hypotension, and is now holding his Lasix. He does not feel that he is having increased shortness of breath. He is ambulating at home with a wheeled walker, and feels he is tolerating this well. We discussed continue to monitor and stay hydrated. He will continue to hold his Lasix at this time and keep OV next week for follow up. Should his symptoms worsen, we discussed presenting to ER and notifying our office as well. * Telephone Encounter - Nas Quijano RAMONShari - 02/13/2025 4:12 PM CDT Received call from Christ[facility] physical [facility] concerns with Holger. Shestates she was working with him today using his rollator and he is getting very short of breath with any type of exertion, even just talking too. BP - sitting was 114/62, standing was 88/60. RR goes from 17 to 26 with exertion. HR goes from 80 to 114 with exertion. He recovers fairly quickly with rest but she was concerned with how much trouble he has with any kind of exertion/speaking. We can call patient with recommendations as it will be after hours for them. documented in this encounter Plan of Treatment Not on file documented as of this encounter Visit Diagnoses Not on filedocumented in this encounter Care Teams Blocklayer Relationship Specialty Start Date End Date Jeferson Elena MD [address] [facility] [address] [place] [address] PCP - General Family Medicine 02/17/23 Mykel Mccauley DO [address] [place] [address] MEDICAL ONCOLOGY, [facility] [address] [place] [address] Medical Oncologist/Hematologis t Hematology and Oncology 08/28/21 Micheal Cabral MD [address] [facility] [address] [place] [address] Consulting Physician General Surgery 08/11/22 Artie Henderson MD [address] [facility] [address] [place] [address] Referring Physician Cardiology 02/17/23 Ana M Renteria MD [address] [facility] [facility] [address] [place] [address] Referring Physician Cardiology 11/21/23 [place] [address] [facility] [address] [place] [address] Consulting Physician Endocrinology Diabetes & Metabolism 11/21/23 [place] [address] [facility] [address] [place] [address] Nurse Practitioner Endocrinology Diabetes & Metabolism 11/21/23 Parth Dalton MD [address] [facility] [id number] [place] [address] Surgeon Cardiothoracic Surgery 12/07/24 documented as of this encounter
--- OUTSIDE RECORDS SUMMARY | 2025-02-18 13:23 | XMS_ITS | Clinical Summary ---
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 NUMERICAL CONTROL MACHINE OPERATOR): Presenting with Afib with HR currently at goal < 110, episode of hypotension 03/29 with RVR requiring ICU transfer - On metoprolol tartrate 37.5 mg BID, rate controlled - Continue telemetry for now (currently rate controlled) - Theraputic lovenox Assessment & Plan (04/04/2022 3:18 PM NUMERICAL CONTROL MACHINE OPERATOR): Presenting with Afib with HR currently at goal < 110, episode of hypotension 03/29 with RVR requiring ICU transfer - On metoprolol tartrate 37.5 mg BID, rate controlled - Continue telemetry for now - Theraputic lovenox Chronic HFrEF (heart failure with reduced ejection fraction) 10/22/2021 Assessment & Plan (01/19/2025 8:48 AM CDT): 12/31 ECHO results Normal left ventricular size, Concentric LV hypertrophy. LVEF appears to be 55-60 %. Paradoxical interventricular septal motion consistent with prior cardiac or thoracic surgery. Right ventricular dilatation. Normal right ventricular systolic function. GDMT held due to low BP, restart in outpt setting ASA/eliquis/Statin/ zetia 12.5 mg spironolactone entresto/ farxiga on hold post operative Restarted lasix 20 mg PO today 01/16 ECHO EF 47 % normal RV size and function Assessment & Plan (03/28/2022 2:53 PM NUMERICAL CONTROL MACHINE OPERATOR): - Recent TTE 2wks ago with EF 25% (prior 40% in 08/2021) - Presenting volume down in setting of limited PO intake. Evaluation with pBNP 655 (prior 3700) and hs-trop negative x 3 - Telemetry, Low-sodium diet, Daily wts, Strict I/Os - Given volume down and relative hypotension - hold GDMT at this time - Full Code - consider lifevest on discharge - Consider consult cardio-onc evaluation given reduced EF this year ASCVD (arteriosclerotic cardiovascular disease) 08/28/2021 Assessment & Plan (02/11/2025 5:46 PM CDT): Patient is status post CABG. Restart Eliquis. Hyperlipidemia 08/28/2021 Assessment & Plan (02/11/2025 5:46 PM CDT): Patient advised he should be taking atorvastatin 80 mg daily. Assessment & Plan (07/05/2022 8:06 PM NUMERICAL CONTROL MACHINE OPERATOR): Statin Assessment & Plan (07/04/2022 4:23 PM NUMERICAL CONTROL MACHINE OPERATOR): Statin Assessment & Plan (07/03/2022 5:08 PM NUMERICAL CONTROL MACHINE OPERATOR): Statin Assessment & Plan (04/05/2022 4:32 PM NUMERICAL CONTROL MACHINE OPERATOR): - Cont statin once able to tolerate PO Assessment & Plan (03/25/2022 11:54 PM NUMERICAL CONTROL MACHINE OPERATOR): - Cont statin Hypertension 08/28/2021 Assessment & Plan (02/11/2025 5:46 PM CDT): I have advised him to restart the Lasix. I have advised him to speak with Cardiology regarding the Entresto and Farxiga. I advised him that Cardiology will manage restarting GDMT. Assessment & Plan (01/19/2025 8:51 AM CDT): VS q 4 01/07 started metoprolol 6.25 mg po BID 01/08 increased 12.5 mg po BID 01/10 metoprolol dc'd for soft blood pressures, restarted 01/19 Impotence of organic origin 08/28/2021 Encounter for adjustment and management of unspecified implanted device 08/28/2021 Chronic disease anemia 08/08/2021 History of pulmonary embolism 08/07/2021 Assessment & Plan (02/11/2025 5:46 PM CDT): Discussed with patient importance of restarting his Eliquis. He is advised to restart Eliquis 5 mg b.i.d.. Assessment & Plan (01/19/2025 8:50 AM CDT): post operative ALEX clip Continue asa Dc plavix 01/09 Eliquis on hold per Assessment & Plan (04/05/2022 4:32 PM NUMERICAL CONTROL MACHINE OPERATOR): - Submassive PE diagnosed in 07/2021 - CT PE negative here (in setting of apixaban noncompliance) - Lovenox Assessment & Plan (04/04/2022 3:21 PM NUMERICAL CONTROL MACHINE OPERATOR): - Submassive PE diagnosed in 07/2021 - CT PE negative here (in setting of apixaban noncompliance) - Lovenox Clear cell carcinoma of kidney, right 06/05/2018 Cancer Staging:Clinical stage from 10/14/2021:Stage III(cT3a, cN1, cM0) - Signed by Mykel Mccaulye DO on 10/17/2021 Overview (08/28/2021): Added automatically from request for surgery [id number] Added automatically from request for surgery [id number] Assessment & Plan (07/05/2022 8:09 PM NUMERICAL CONTROL MACHINE OPERATOR): Follows with Dr. Mccauley. Dx 2018. S/p ablation and radical nephrectomy. Completed 5 cycles of pembrolizumab 3-12/2021. Hx of immunotherapy neurotoxicity and prior treated with course of steroids and IVIG (12/2021, 03/2022) Assessment & Plan (07/04/2022 4:23 PM NUMERICAL CONTROL MACHINE OPERATOR): Follows with Dr. Mccauley. Bee 2018. S/p ablation and radical nephrectomy. Completed 5 cycles of pembrolizumab . 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 Mccauley. Bee 2018. S/p ablation and radical nephrectomy. Completed 5 cycles of pembrolizumab . 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 Mccauley. Bee 2018. S/p ablation and radical nephrectomy. Completed 5 cycles of pembrolizumab . 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 - Continues on IVIG and solumedrol per oncology Assessment & Plan (04/04/2022 3:20 PM NUMERICAL CONTROL MACHINE OPERATOR): Follows with Dr. Mccauley. Bee 2017. S/p ablation and radical nephrectomy. Completed 5 cycles of pembrolizumab . 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 - Continues on IVIG and solumedrol per oncology Chronic left shoulder pain 02/18/2016 Acute renal failure superimposed on chronic kidn ey disease Assessment & Plan (07/05/2022 8:12 PM NUMERICAL CONTROL MACHINE OPERATOR): Cr 1.8 (baseline 1) - euvolemic on exam without recent GI losses or poor PO intake - IVF were hold - Initially aldactone, entresto and lasix were hold. - Cr improve to 1.37. - Restarted entresto and lower dose of lasix (from 40 mg daily to 20 mg daily) Assessment & Plan (07/04/2022 4:25 PM NUMERICAL CONTROL MACHINE OPERATOR): Cr 1.8 (baseline 1) - euvolemic on exam without recent GI losses or poor PO intake - Cr improve to 1.47. - would not give fluids - Hold aldactone, entresto and lasix Assessment & Plan (07/03/2022 5:08 PM NUMERICAL CONTROL MACHINE OPERATOR): Cr 1.8 (baseline 1) - euvolemic on exam without recent GI losses or poor PO intake - improving without intervention - would not give fluids - Hold aldactone, entresto and lasix Assessment & Plan (04/05/2022 4:30 PM NUMERICAL CONTROL MACHINE OPERATOR): - Presenting with Cr 1.81 up from baseline ~1.3 in setting of decreased PO intake, now resolved with supportive care - Avoid nephrotoxins, renal-dose meds Assessment & Plan (04/04/2022 3:18 PM NUMERICAL CONTROL MACHINE OPERATOR): - Presenting with Cr 1.81 up from baseline ~1.3 in setting of decreased PO intake, now resolved with supportive care - Avoid nephrotoxins, renal-dose meds Drug reaction Neurotoxicity Assessment & Plan (07/05/2022 7:58 PM NUMERICAL CONTROL MACHINE OPERATOR): 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, high dose steroids, now on pred 10 daily - On the ED receive hydrocortisone 59 ng x 3 - Steroid as mention - should not need PJP ppx on this dose - start PPI ppx Assessment & Plan (07/04/2022 4:19 PM NUMERICAL CONTROL MACHINE OPERATOR): 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, high dose steroids, now on pred 10 daily - On the ED receive hydrocortisone 59 ng x 3 - Steroid as mention - should not need PJP ppx on this dose - start PPI ppx Assessment & Plan (07/03/2022 4:51 PM NUMERICAL CONTROL MACHINE OPERATOR): 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 Prior evaluation during 12/2021 admission with Brain MRI, LP, Neuro eval unremarkable - completed steroid taper for presumed immunotherapy neurotoxicity. Repeat evaluation during this admission without alternate diagnosis including HIV, RPR, B12, NH3, copper, zinc, emperic thiamine and repeat MRI brain. LP without evidence of bacterial or viral meningitis/ecephalitis including paraneoplastic panel (currently still in process) - Neurology previously consulted, signed off - Completed course of broad spectrum antibiotics for ?PNA without notable improvement - Steroids: methylpred 1 g daily (03/31 - 04/02), 1 mg kg (04/03 - 04/05) then slow taper - Plan to start 60 mg daily starting tomorrow (04/06) - Can transition to prednisone when tolerating PO - Will need PJP ppx when taking PO - IVIG x 4 doses (04/01 - 04/04) - Limit sedating medications as much as possible, small dose antipychotic use as needed to prevent self injury if not redirectable Assessment & Plan (04/04/2022 3:16 PM NUMERICAL CONTROL MACHINE OPERATOR): Patient presenting with acute on chronic encephalopathy - ongoing since 12/2021 admission for pembro neurotoxicity with ongoing FTT. Prior evaluation during 12/2021 admission with Brain MRI, LP, Neuro eval unremarkable - completed steroid taper for presumed immunotherapy neurotoxicity. Repeat evaluation during this admission without alternate diagnosis including HIV, RPR, B12, NH3, copper, zinc, emperic thiamine and repeat MRI brain. LP without evidence of bacterial or viral meningitis/ecephalitis including paraneoplastic panel (currently still in process) - Neurology previously consulted, signed off - Completed course of broad spectrum antibiotics for ?PNA without notable improvement - Steroids: methylpred 1 g daily (03/31 - 11/18), 1 mg kg (04/03 - 04/05) then slow taper - IVIG x 4 doses (04/01 - 04/04) - Limit sedating medications as much as possible, small dose antipychotic use as needed to prevent self injury if not redirectable Resolved Problems Problem Noted Date Diagnosed Date Resolved Date Thrombocytopenia 12/30/2024 01/05/2025 Assessment & Plan (12/30/2024 7:42 PM CDT): Post operative thrombocytopenia Monitor platelets Holding heparin for ptls less than 100 CAD, multiple vessel 12/26/2024 025 Diabetes mellitus 11/21/2023 01/26/2025 Assessment & Plan (01/11/2025 4:07 PM CDT): Pt unaware of Diabetes diagnosis, A1c 5.9 Diet controlled at this time, glucose checks and SSI stopped Glucose check PRN and on daily labs Hypotension 07/02/2022 10/13/2022 Assessment & Plan (07/05/2022 8:06 PM NUMERICAL CONTROL MACHINE OPERATOR): SBP has been on the low 100s to the 90s. HR 90s to low 100s. Euvolemic to hypovolemia on exam. Labs with lactate nl, WBC 5, UA neg, CT cap neg for infection. At home taking Lasix 40 mg daily, metoprolol XR 12.5 mg daily, Entresto 24-26 mg, and aldactone 25 mg. Is also taking prednisone 10 mg daily. - DDx: hypotension from PNA vs adrenal insufficiency vs CHF meds Plan: - orthostatic vitals negative - See adrenal deficiently for more information - Initially aldactone, entresto and lasix were hold. Home metop 12.5 mg BID was decrease to 6.25 mg BID. BP normalize. Entresto was restarted Also metop 6.25 mg BID change back to home 12.5 mg BID. Because was euvolemic, lasix 40 mg was decrease to 20 mg. Aldactone was not started. Assessment & Plan (07/04/2022 4:23 PM NUMERICAL CONTROL MACHINE OPERATOR): SBP has been on the low 100s to the 90s. HR 90s to low 100s. Euvolemic to hypovolemia on exam. Labs with lactate nl, WBC 5, UA neg, CT cap neg for infection. At home taking Lasix 40 mg daily, metoprolol XR 12.5 mg daily, Entresto 24-26 mg, and aldactone 25 mg. Is also taking prednisone 10 mg daily. - DDx: hypotension from PNA vs adrenal insufficiency vs CHF meds Plan: - orthostatic vitals negative - See adrenal deficiently for more information - Hold aldactone, entresto and lasix Assessment & Plan (07/03/2022 5:03 PM NUMERICAL CONTROL MACHINE OPERATOR): SBP has been on the low 100s to the 90s. HR 90s to low 100s. Euvolemic to hypovolemia on exam. Labs with lactate nl, WBC 5, UA neg, CT cap neg for infection. At home taking Lasix 40 mg daily, metoprolol XR 12.5 mg daily, Entresto 24-26 mg, and aldactone 25 mg. Is also taking prednisone 10 mg daily. - DDx: hypotension from PNA vs adrenal insufficiency from chronic steroid use (started on high dose steroids 03/2022 and tapered by 10mg of pred every week, now on pred 10 daily) vs CHF meds Plan: - orthostatic vitals - s/p stress dose steroids. Resume normal dose of pred 10 mg - 8am cortisol was 1.8. Plan is to order ACTH stimulation test. May need a seng dose if steroid. Tracheostomy care 07/02/2022 12/26/2024 Assessment & Plan (07/05/2022 7:54 PM NUMERICAL CONTROL MACHINE OPERATOR): home metal #5 - does not use trach collar Assessment & Plan (07/04/2022 4:17 PM NUMERICAL CONTROL MACHINE OPERATOR): home metal #5 - does not use trach collar Assessment & Plan (07/02/2022 10:20 PM NUMERICAL CONTROL MACHINE OPERATOR): home metal #5 - does not use trach collar Shortness of breath 07/01/2022 10/14/19 23 Assessment & Plan (07/05/2022 8:13 PM NUMERICAL CONTROL MACHINE OPERATOR): PHx of HFrEF (EF 20%), PE on eliquis and AF on eliquis that p/w months of worsening THOMPSON and cough. Pt is on RA, no wheezing and hypovolemia. Trops was negative x 3 and proBNP 530. EKG w/ AFL.CT neg for PE. RVP negative. - DDx: possibly pneumonia though no imaging evidence of it. Unlikely to be CHF exacerbation because no signs of volume overload and proBNP unrearkable. No wheezing on exam. Stress test at [facility] 2019 (media) indeterminate. May have had ischemic eval afterwards but records not available. Cardiac MRI 06/2022 w/ Dilated cardiomyopathy with markedly reduced right and left ventricular ejection fraction. No evidence of myocarditis Plan: - empiric coverage for PNM: CTX, azithro for 3 days - BCx NGTD - Resolve SOB Assessment & Plan (07/04/2022 4:19 PM NUMERICAL CONTROL MACHINE OPERATOR): PHx of HFrEF (EF 20%), PE on eliquis and AF on eliquis that p/w months of worsening THOMPSON and cough. Pt is on RA, no wheezing and hypovolemia. Trops was negative x 3 and proBNP 530. EKG w/ AFL.CT neg for PE. RVP negative. - DDx: possibly pneumonia though no imaging evidence of it. Unlikely to be CHF exacerbation because no signs of volume overload and proBNP unrearkable. No wheezing on exam. Stress test at [facility] 2019 (media) indeterminate. May have had ischemic eval afterwards but records not available. Cardiac MRI 06/2022 w/ Dilated cardiomyopathy with markedly reduced right and left ventricular ejection fraction. No evidence of myocarditis Plan: - empiric coverage for PNM: CTX, azithro - f/u BCx - Improve SOB - per cards clinic notes, has been referred to cards onc and want coronary CTA. Consult cards to assist with diagnostics this hospitalization vs fu as outpt (beau on 09/09/2022 09/09/2022) Assessment & Plan (07/03/2022 4:48 PM NUMERICAL CONTROL MACHINE OPERATOR): PHx of HFrEF (EF 20%), PE on eliquis and AF on eliquis that p/w months of worsening THOMPSON and cough. Pt is on RA, no wheezing and hypovolemia. Trops was negative x 3 and proBNP 530. EKG w/ AFL.CT neg for PE. - DDx: possibly pneumonia though no imaging evidence of it. Unlikely to be CHF exacerbation because no signs of volume overload and proBNP unrearkable. No wheezing on exam. Stress test at [facility] 2018 (media) indeterminate. May have had ischemic eval afterwards but records not available. Cardiac MRI 06/2022 w/ Dilated cardiomyopathy with markedly reduced right and left ventricular ejection fraction. No evidence of myocarditis Plan: - empiric coverage for PNM: CTX, azithro - f/u BCx - Order RVP - per cards clinic notes, has been referred to cards onc and want coronary CTA. Consult cards to assist with diagnostics this hospitalization vs fu as outpt (beau on 09/09/2022 09/09/2022) Ventral incisional hernia 06/03/2022 Overview (06/03/2022): Added automatically from request for surgery [id number] Severe malnutrition 03/26/2022 11/21/19 24 Assessment & Plan (04/05/2022 4:32 PM NUMERICAL CONTROL MACHINE OPERATOR): RD following, continue TF - CABIN CLEANER to follow for continued swallow eval given risk of aspiration Assessment & Plan (04/04/2022 3:21 PM NUMERICAL CONTROL MACHINE OPERATOR): RD following, continue TF - CABIN CLEANER to follow for continued swallow eval given risk of aspiration Hypercalcemia 03/25/2022 03/26/2022 Assessment & Plan (03/25/2022 11:54 PM NUMERICAL CONTROL MACHINE OPERATOR): - Presume secondary to dehydration - monitor s/p IVF SIRS (systemic inflammatory response syndrome) 03/25/2022 12/07/2024 Shortness of breath 03/09/2022 03/25/20 22 Assessment & Plan (03/25/2022 11:55 PM NUMERICAL CONTROL MACHINE OPERATOR): - Hypotension 12/14/2021 10/13/2022 Cor pulmonale, acute 08/20/2021 07/08/2 024 Postural dizziness with presyncope 08/08/2021 10/07/2021 Stage 3a chronic kidney disease 08/08/2021 10/07/2021 Tachycardia 08/08/2021 10/07/2021 Adenomatous polyp of colon 03/21/2018 0 10/13/2022 Right kidney mass 03/15/2018 10/07/2021 Impingement syndrome of left shoulder 03/22/2013 10/07/2021 Prediabetes 06/15/2011 10/07/2021 Encounters Date Type Department Care Team Description 02/13/2025 Telephone [facility] Cardiothoracic Surgery [address] [facility] 8th Floor [address] Room [address] [place] [phone] Parth Dalton MD Symptom Based Call 02/13/2025 Telephone [facility] Medical [facility] Primary Care at [address] [phone] Jeferson Elena MD Medical Question/Miscellaneo us 02/11/2025 Telephone [facility] Medical [facility] Primary Care at [address] [phone] Jeferson Elena MD Symptom Based Call 02/11/2025 Telephone [facility] Primary Care at [address] [phone] Jeferson Elena MD Ortho vitals 02/08/2025 10:00 AM CDT Telemedicine [facility] Medical [facility] Primary Care at [address] [phone] Cherise Butts NP History of pulmonary embolism (Primary Dx); ASCVD (arteriosclerotic cardiovascular disease); Primary hypertension; Mixed hyperlipidemia; Hospital discharge follow-up 02/08/2025 Telephone [facility] Cardiothoracic Surgery [address] [facility] 8th Floor [address] Room [address] [place] [phone] Rosi Jha NP 02/06/2025 Telephone [facility] Medical [facility] Primary Care at [address] [phone] Jeferson Elena MD TRAE Questions 02/04/2025 Orders Only [facility] Medical Group Primary Care at [address] [phone] Yana Ramirez MD 01/31/2025 Orders Only [facility] Medical Group Primary Care at [address] [phone] Yana Ramirez MD 01/31/2025 Telephone [facility] Medical Group Primary Care at [address] [phone] Jeferson Elena MD Medical Question/Miscellaneo us 01/22/2025 Telephone [facility] Medicine Physicians [facility] [address] [place] [phone] Jayshree Khan 01/18/2025 1:24 PM CDT - 01/18/2025 11:59 PM CDT Hospital Encounter [facility] [address] [place] [address] Discharge Disposition: Discharge to home or self care 01/10/2025 3:30 PM CDT - 01/10/2025 11:59 PM CDT Hospital Encounter [facility] [address] [place] [address] Discharge Disposition: Discharge to home or self care 01/02/2025 Telephone [facility] Medicine Otolaryngology [address] [place] [phone] Natalie Cast MS 12/28/2024 7:55 AM CDT Ancillary Procedure [facility] Operating Room 1 [place] [address] 12/28/2024 7:00 AM CDT - 12/28/2024 3:55 PM CDT Surgery [facility] Operating Room [address] [place] [address] Parth Dalton MD CORONARY ARTERY BYPASS GRAFT WITH PUMP, ALEX CLIP WITH 45MM ATRICLIP 12/28/2024 6:56 AM CDT Anesthesia Event [facility] Operating Room [address] [place] [address] Simon Roberts MD Shah, Karina Bhavesh, MD 12/27/2024 9:10 AM CDT Ancillary Procedure [facility] Medicine Vascular Lab IP [address] [facility] [address] [place] [address] 12/27/2024 9:05 AM CDT Ancillary Procedure [facility] Medicine Vascular Lab IP [address] [facility] [address] [place] [address] 12/26/2024 4:29 PM CDT - 01/19/2025 3:44 PM CDT Hospital Encounter [facility] [address] [place] [address] Parth Dalton MD CAD, multiple vessel (Primary Dx); Encounter for adjustment and management of unspecified implanted device; Mixed hyperlipidemia; Ischemic cardiomyopathy Discharge Disposition: Discharge to SNF 12/26/2024 1:00 PM CDT Pre-Admission Testing [facility] [address] [place] [phone] Preoperative testing (Primary Dx) 12/24/2024 11:05 AM CDT - 12/24/2024 11:59 PM CDT Hospital Encounter [facility] Medical Office Building [address] [address] Clear cell carcinoma of kidney, right (HCC) Discharge Disposition: Discharge to home or self care 12/12/2024 Orders Only [facility] [address] [place] [address] Advanced Medicine 8th [place] [address] [place] [address] Artie Henderson MD 12/10/2024 Results Follow-Up [facility] Medical Group Primary Care at [address] [phone] Jeferson Elena MD Lipid panel, Hepatitis B core antibody, total Blood, Hepatitis B surface antibody (immune status) Blood, Hepatitis B Surface Antigen Blood 12/07/2024 12:15 PM CDT Lab [facility] Medical Group Outpatient Lab at [address] [phone] 12/07/2024 12:05 PM CDT - 12/07/2024 11:59 PM CDT Hospital Encounter [address] [address] Mixed hyperlipidemia; Need for hepatitis B screening test Discharge Disposition: Discharge to home or self care 12/07/2024 11:30 AM CDT Office Visit [facility] Medical Group Primary Care at [address] [phone] Jeferson Elena MD Encounter for Medicare annual wellness exam (Primary Dx); Liver cell carcinoma (HCC); Type 2 diabetes mellitus with stage 3b chronic kidney disease, without long-term current use of insulin (HCC); Stage 3b chronic kidney disease (HCC); Primary hypertension; Mixed hyperlipidemia; Heart failure with reduced ejection fraction (HCC); Longstanding persistent atrial fibrillation (HCC); Need for hepatitis B screening test 12/07/2024 Telephone [facility] Physicians [facility] [address] [facility] [address] [place] [address] Marcela Chaparro CMA 12/04/2024 Telephone [facility] Cardiothoracic Surgery [address] [facility] 8th Floor [address] Room [address] [place] [phone] Parth Dalton MD 11/19/2024 11:30 AM CDT Office Visit [facility] Medical Group Pulmonary at [address] [place] [phone] Shwetha Lowe NP Tracheostomy dependent (HCC) (Primary Dx); Heart failure with reduced ejection fraction (HCC); Dyspnea on minimal exertion 11/19/2024 Orders Only [facility] Cardiology [address] [facility] Floor 1, [address] [place] [phone] Artie Henderson MD ASCVD (arteriosclerotic cardiovascular disease) (Primary Dx); Coronary artery disease involving rincon coronary artery of rincon heart with other form of angina pectoris from Last 3 Months Immunizations Immunization Administration Dates Next Due Hep A, Adult 02/10/2015,08/16/2013,12/16/2005 Influenza Virus Vaccine Trivalent Mdv 03/10/2018 ,02/14/2017 Influenza, Quad, Adjuvantate d, Intramuscular 02/14/2022 Influenza, Quadrivalent, Hig h Dose, Preservative Free, Intrr 02/02/2023 Influenza, Quadrivalent, Spl it, Preservative Free, Intramuscular 12/10/2014 Influenza, Trivalent, Adjuva nted, Intramuscular 06/01/2019 Influenza, Trivalent, High D ose, Split, Preservative Free, Intramuscular 02/06/2024,02/22/2021,02/12/2016 Influenza, Trivalent, IM (MDV) 3,05/24/2012,03/05/2011,05/28,03/17/2009,02/23/2008,04/12/2006 ,05/05/2005,04/10/2003,03/11/1999 Influenza, Unspecified 02/06/2024,02/12/2021 Pfizer SARS-CoV-2 Monovalent Vaccination (12+ Yrs) PURPLE 02/06/2024,03/09/2021 Pfizer Sars-Cov-2 Bivalent V accination (12+ YRS) 02/14/2022 Pneumococcal Conjugate PCV 13 02/10/2015 Pneumococcal Conjugate Pcv20 08/17/2024 Pneumococcal Polysaccharide PPV23 02/12/2016 Td, Unspecified 12/16/2000,08/12/1998 Td, adsorbed 12/16/2000,08/12/1998 Tdap 05/28/2010,12/16/2000 Typhoid Inactivated 12/16/2005 Typhoid, Unspecified 12/16/2005 ZOSTER LIVE 05/28/2010 Surgical History Surgery Date Site/Laterality Comments COLONOSCOPY APPENDECTOMY 1969 TRACHEOSTOMY 05/16/1976 - 05/15/1977 current 2022 LAPAROSCOPIC NEPHRECTOMY 06/15/2021 Right LAPAROSCOPIC PARTIAL NEPHRECTOMY 06/12/2018 RENAL CRYOABLATION FL FLUORO GUIDED LUMBAR PUNCTURE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 mg/dL [facility] Creatinine 1.31(H) 0.80 - 1.30 mg/dL [facility] Glucose 111 70 - 199 mg/dL [facility] Comment: Interpretive Data Fasting glucose >/= 126 mg/dl is diagnostic for diabetes. Fasting is defined as no caloric intake for at least 8 hours. Fasting glucose between 100 mg/dl to 125 mg/dl is diagnostic of prediabetes. In a patient with classic symptoms of hyperglycemia or hyperglycemic crisis, a random glucose >/= 200 mg/dl is diagnostic for diabetes. In the absence of unequivocal hyperglycemia, results should be confirmed by repeat testing. The classification and Diagnosis of Diabetes Diabetes Care 2021; 46: S19-S40. Current interpretive data was last revised 2022. Calcium 7.8(L) 8.5 - 10.3 mg/dL [facility] Blood 01/16/2025 7:44 PM CDT 01/16/2025 8:01 PM CDT Rosa Beltran FIELD CONSULTANT LAB BLOOD ORDERABLES Final Re sult [facility] Department [place] [address] * TRANSTHORACIC ECHO (TTE) LIMITED/FOLLOW UP W LTD DOPPLER/CF W CONTRAST (01/16/2025 5:39 PM CDT) EF Mod BP 47 % CONS SCIMAGE Anatomical Region Laterality Modality Ultrasound 01/16/2025 4:34 PM CDT Narrative 01/16/2025 6:03 PM CDT [facility] [place] [address] Transthoracic Echocardiographic Report Patient Name: MEGAN TITUS G : 1950 (74y 11m) Sex: M Study Date: 01/16/2025 04:34:52 PM Ht(Inch): 70 Wt(Lb): 203.93 BSA: 2.14 Orchestra Musician: Kasey Almendarez [facility] Location: [id number] Order Provider: CHARISSA COLVIN Heart Rate: 93 BMI: 29.26 BP: 120 / 68 Ref Provider: CHARISSA COLVIN PROCEDURES: Echocardiographic Report: Limited transthoracic 2D echo with contrast, includes spectral and tissue Doppler, color flow Doppler, and/or M-mode, when performed. Additional Procedures: Myocardial strain imaging was performed. Contrast: Contrast Enhancement was Employed: Due to suboptimal image quality with inadequate visualization of at least 2 of 16 LV wall segments in any view after initial imaging. Perflutren contrast was administered using the volume necessary to obtain adequate images. 2.4 ml Optison Administered, (0.6 ml wasted). INDICATIONS: Limited echo for LV function. 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 Normal left ventricular size based on volume index. Concentric LV hypertrophy. Mildly depressed left ventricular systolic function. The Ejection Fraction (Liao's) is measured at 47 %. The average global longitudinal strain is abnormal. 2. Resting Segmental Wall Motion Analysis: Total wall motion score is 2.00. There is global left ventricular hypokinesis. 3. Normal right ventricular size. Normal function visually. TAPSE underestimated. 4. The estimated pulmonary artery systolic pressure is 32.0 mmHg. No pulm HTN. ATTESTATION: I have personally reviewed and interpreted this study without fellow or resident. - DISCLAIMER: The study images and the final report will be retained in the patient chart by the Echo Laboratory for the legally required time period. This chart constitutes the legal record of any testing performed. FINDINGS: Left Ventricle: Normal left ventricular size based on volume index. Concentric LV hypertrophy. Mildly depressed left ventricular systolic function. The Ejection Fraction (Liao's) is measured at 47 %. The average global longitudinal strain is abnormal. The LV global strain is: -10.4 %. Resting Segmental Wall Motion Analysis: Total wall motion score is 2.00. There is global left ventricular hypokinesis. Right Ventricle: Normal right ventricular size. Normal function visually. TAPSE underestimated. Left Atrium: The left atrium is normal in size. Right Atrium: The right atrium is normal in size. Mitral Valve: Normal mitral valve structure. Mild mitral valve regurgitation. Aortic Valve: Normal trileaflet aortic valve. Mild aortic valve regurgitation. The mean transaortic gradient is 8 mmHg. The aortic valve area by the continuity equation (using VTI) is 1.98 cm2. Aortic valve dimensionless index is 0.64. Tricuspid Valve: Normal tricuspid valve structure. Mild tricuspid regurgitation. The estimated pulmonary artery systolic pressure is 32.0 mmHg. No pulm HTN. Pulmonic Valve: Normal pulmonic valve structure. No pulmonic regurgitation. Pericardium: Normal pericardium without pericardial effusion. Aorta: Normal aortic root size at sinuses of Valsalva. Normal aortic root size when indexed. IVC: IVC is normal in size. MEASUREMENTS: 2D/MM Value Range Doppler Value Range LVIDd 2D 4.90 cm [ 4.20 - 5.80 ] AV Peak Alexandro 1.9 m/s [ 1.0 - 1.7 ] LVIDs 2D 3.56 cm [ 2.50 - 4.00 ] AV Peak PG 14.44 mmHg IVSd 2D 1.25 cm [ 0.60 - 1.00 ] AV Mean PG 8 mmHg LVPWd 2D 1.29 cm [ 0.60 - 1.00 ] AV VTI 30.9 cm LV Thickness Ratio 1.0 LVOT Peak Alexandro 1.2 m/s [ 0.7 - 1.1 ] LV FS 2D 27.26 % [ 25.00 - 43.00 ] LVOT Peak PG 5.76 mmHg LV Mass 2D 249.12 g LVOT Mean PG 4 mmHg LV Mass Index 2D 116.55 g/m2 LVOT VTI 19.7 cm RWT 0.53 LVOT Diam 1.99 cm EDV Mod BP 101.92 ml [ 62.00 - 150.00 ] JOEL VTI 1.98 cm2 LV EDV Index 47.68 ml/m2 LVOT/AV VTI 0.64 - Dimensionless index (DVI) ESV Mod BP 53.95 ml [ 21.00 - 61.00 ] TR Peak Alexandro 2.4 m/s [ 1.0 - 2.8 ] EF Mod BP 47 % [ 52 - 72 ] TR Peak PG 23.0 mmHg LV GLS -10.4 % [ -25.0 - -18.0 ] IVC Diam 1.48 cm IVC Collapse 75 % AoR Diam 2D 3.64 cm [ 3.10 - 3.70 ] Ao Root Index 1.70 cm/m2 [ 1.00 - 2.00 ] Electronically Signed By: Rene Chanel M.D. 01/16/2025 6:03:06 PM CDT Wall Motion Analysis - Resting Procedure Note Rene Chanel MD PhD - 01/16/2025 [facility] [place] [address] Transthoracic Echocardiographic Report Patient Name: MEGAN TITUS G : 1950 (74y 11m) Sex: M Study Date: 01/16/2025 04:34:52 PM Ht(Inch): 70 Wt(Lb): 203.93 BSA: 2.14 Orchestra Musician: Kasey Almendarez RDCS Location: [id number] Order Provider:CHARISSA COLVIN Heart Rate: 93 BMI: 29.26 BP: 120 / 68 Ref Provider: CHARISSA COLVIN PROCEDURES: Echocardiographic Report: Limited transthoracic 2D echo with contrast,includes spectral and tissue Doppler, color flow Doppler, and/or M-mode, when performed. Additional Procedures: Myocardial strain imaging was performed. Contrast: Contrast Enhancement was Employed: Due to suboptimal imagequality with inadequate visualization of at least 2 of 16 LV wall segments in any viewafter initial imaging. Perflutren contrast was administered using the volume necessaryto obtain adequate images. 2.4 ml Optison Administered, (0.6 ml wasted). INDICATIONS: Limited echo for LV function. 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 Normal left ventricular size based on volume index. Concentric LVhypertrophy. Mildly depressed left ventricular systolic function. The Ejection Fraction(Liao's) is measured at 47 %. The average global longitudinal strain is abnormal. 2. Resting Segmental Wall Motion Analysis: Total wall motion score is2.00. There is global left ventricular hypokinesis. 3. Normal right ventricular size. Normal function visually. TAPSEunderestimated. 4. The estimated pulmonary artery systolic pressure is 32.0 mmHg. No pulmHTN. ATTESTATION: I have personally reviewed and interpreted this study without fellow orresident. - DISCLAIMER: The study images and the final report will be retained in the patientchart by the Echo Laboratory for the legally required time period. This chart constitutesthe legal record of any testing performed. FINDINGS: Left Ventricle: Normal left ventricular size based on volume index.Concentric LV hypertrophy. Mildly depressed left ventricular systolic function. TheEjection Fraction (Liao's) is measured at 47 %. The average global longitudinal strain isabnormal. The LV global strain is: -10.4 %. Resting Segmental Wall Motion Analysis: Total wall motion score is 2.00.There is global left ventricular hypokinesis. Right Ventricle: Normal right ventricular size. Normal function visually.TAPSE underestimated. Left Atrium: The left atrium is normal in size. Right Atrium: The right atrium is normal in size. Mitral Valve: Normal mitral valve structure. Mild mitral valveregurgitation. Aortic Valve: Normal trileaflet aortic valve. Mild aortic valveregurgitation. The mean transaortic gradient is 8 mmHg. The aortic valve area by the continuityequation (using VTI) is 1.98 cm2. Aortic valve dimensionless index is 0.64. Tricuspid Valve: Normal tricuspid valve structure. Mild tricuspidregurgitation. The estimated pulmonary artery systolic pressure is 32.0 mmHg. No pulm HTN. Pulmonic Valve: Normal pulmonic valve structure. No pulmonicregurgitation. Pericardium: Normal pericardium without pericardial effusion. Aorta: Normal aortic root size at sinuses of Valsalva. Normal aortic rootsize when indexed. IVC: IVC is normal in size. MEASUREMENTS: 2D/MM Value Range DopplerValue Range LVIDd 2D 4.90 cm [ 4.20 - 5.80 ] AV Peak Vel1.9 m/s [ 1.0 - 1.7 ] LVIDs 2D 3.56 cm [ 2.50 - 4.00 ] AV Peak PG14.44 mmHg IVSd 2D 1.25 cm [ 0.60 - 1.00 ] AV Mean PG8 mmHg LVPWd 2D 1.29 cm [ 0.60 - 1.00 ] AV VTI30.9 cm LV Thickness Ratio 1.0 LVOT Peak Vel1.2 m/s [ 0.7 - 1.1 ] LV FS 2D 27.26 % [ 25.00 - 43.00 ] LVOT Peak PG5.76 mmHg LV Mass 2D 249.12 g LVOT Mean PG4 mmHg LV Mass Index 2D 116.55 g/m2 LVOT VTI19.7 cm RWT 0.53 LVOT Diam1.99 cm EDV Mod BP 101.92 ml [ 62.00 - 150.00 ] JOEL VTI1.98 cm2 LV EDV Index 47.68 ml/m2 LVOT/AV VTI0.64 - Dimensionless index (DVI) ESV Mod BP 53.95 ml [ 21.00 - 61.00 ] TR Peak Vel2.4 m/s [ 1.0 - 2.8 ] EF Mod BP 47 % [ 52 - 72 ] TR Peak PG23.0 mmHg LV GLS -10.4 % [ -25.0 - -18.0 ] IVC Diam1.48 cm IVC Collapse 75 % AoR Diam 2D 3.64 cm [ 3.10 - 3.70 ] Ao Root Index 1.70 cm/m2 [ 1.00 - 2.00 ] Electronically Signed By: Rene Chanel M.D. 01/16/2025 6:03:06 PM CDT Wall Motion Analysis - Resting us Charissa Colvin NP CV ECHO PROCEDURES Final Re sult * (ABNORMAL) eGFR (01/16/2025 4:23 PM CDT) eGFR 58(L) >=60 mL/min/1. 73 m2 Comment: Interpretive Data Reference Interval Normal >/= 90 mL/min/1.73m2 Mildly decreased* 60 - 89 mL/min/1.73m2 Mildly to moderately decreased 45 - 59 mL/min/1.73m2 Moderately to severely decreased 30 - 44 mL/min/1.73m2 Severely decreased 15 - 29 mL/min/1.73m2 Kidney Failure < 15 mL/min/1.73m2 *Relative to young adult level Estimated glomerular filtration rate is determined by the 2020 CKD-EPI equation recommended by the National Kidney Foundation (A Unifying Approach to GFR Estimation: Recommendations of the NKF-ASK Task Force on Reassessing the Inclusion of Race in Diagnosing Kidney Disease, JASN 2020). The CKD-EPI equation should not be used for patients with unstable renal function and has not been validated in children and those over 70. Current interpretive data was last reviewed 2021. Blood 01/16/2025 4:23 PM CDT 01/16/2025 5:41 PM CDT us Charissa Colvin NP LAB BLOOD ORDERABLES Final Result [facility] [address] [facility] Department [place] [address] * (ABNORMAL) Basic metabolic panel (01/16/2025 4:23 PM CDT) Pathologist [facility] Sodium 138 135 - 145 mmol/L Potassium, pl 4.8 3.3 - 4.9 mmol/L [facility] Chloride 104 97 - 110 mmol/L [facility] CO2 27 22 - 32 mmol/L [facility] Anion gap 7 2 - 15 mmol/L [facility] BUN 36(H) 6 - 25 mg/dL [facility] Creatinine 1.30 0.80 - 1.30 mg/dL [facility] Glucose 113 70 - 199 mg/dL [facility] Comment: Interpretive Data Fasting glucose >/= 126 mg/dl is diagnostic for diabetes. Fasting is defined as no caloric intake for at least 8 hours. Fasting glucose between 100 mg/dl to 125 mg/dl is diagnostic of prediabetes. In a patient with classic symptoms of hyperglycemia or hyperglycemic crisis, a random glucose >/= 200 mg/dl is diagnostic for diabetes. In the absence of unequivocal hyperglycemia, results should be confirmed by repeat testing. The classification and Diagnosis of Diabetes Diabetes Care 2021; 46: S19-S40. Current interpretive data was last revised 2022. Calcium 8.0(L) 8.5 - 10.3 mg/dL [facility] Blood 01/16/2025 4:23 PM CDT 01/16/2025 5:41 PM CDT Charissa Colvin FIELD CONSULTANT LAB BLOOD ORDERABLES Final Result [facility] Department [place] [address] * Potassium, whole blood (01/16/2025 4:38 AM CDT) Pathologist [facility] Potassium, bld 4.2 3.3 - 4.9 mmol/L Blood 01/16/2025 4:38 AM CDT 01/16/2025 4:48 AM CDT Rosa Beltran FIELD CONSULTANT LAB BLOOD ORDERABLES Final Re sult [facility] Department [place] [address] * (ABNORMAL) eGFR (01/15/2025 11:59 PM CDT) Pathologist [facility] eGFR 56(L) >=60 mL/min/1. 73 m2 Comment: Interpretive Data Reference Interval Normal >/= 90 mL/min/1.73m2 Mildly decreased* 60 - 89 mL/min/1.73m2 Mildly to moderately decreased 45 - 59 mL/min/1.73m2 Moderately to severely decreased 30 - 44 mL/min/1.73m2 Severely decreased 15 - 29 mL/min/1.73m2 Kidney Failure < 15 mL/min/1.73m2 *Relative to young adult level Estimated glomerular filtration rate is determined by the 2020 CKD-EPI equation recommended by the National Kidney Foundation (A Unifying Approach to GFR Estimation: Recommendations of the NKF-ASK Task Force on Reassessing the Inclusion of Race in Diagnosing Kidney Disease, JASN 2020). The CKD-EPI equation should not be used for patients with unstable renal function and has not been validated in children and those over 70. Current interpretive data was last reviewed 2021. Blood 01/15/2025 11:5 9 PM CDT 01/16/2025 12:31 AM CDT Gloria Ledezma NP LAB BLOOD ORDERABLES F inal Result Performing Organization Address City/[facility]/ZIP Co de Phone Number [facility] Department [place] [address] * (ABNORMAL) Creatinine (01/15/2025 11:59 PM CDT) Creatinine 1.34(H) 0.80 - 1.30 mg/dL Blood 01/15/2025 11:5 9 PM CDT 01/16/2025 12:31 AM CDT Narrative [facility] - 01/16/2025 1:47 AM CDT While on apixaban Gloria Ledezma NP LAB BLOOD ORDERABLES F inal Result [facility] Department [place] [address] * (ABNORMAL) eGFR (01/15/2025 7:47 PM CDT) eGFR 53(L) >=60 mL/min/1. 73 m2 Comment: Interpretive Data Reference Interval Normal >/= 90 mL/min/1.73m2 Mildly decreased* 60 - 89 mL/min/1.73m2 Mildly to moderately decreased 45 - 59 mL/min/1.73m2 Moderately to severely decreased 30 - 44 mL/min/1.73m2 Severely decreased 15 - 29 mL/min/1.73m2 Kidney Failure < 15 mL/min/1.73m2 *Relative to young adult level Estimated glomerular filtration rate is determined by the 2020 CKD-EPI equation recommended by the National Kidney Foundation (A Unifying Approach to GFR Estimation: Recommendations of the NKF-ASK Task Force on Reassessing the Inclusion of Race in Diagnosing Kidney Disease, JASN 2020). The CKD-EPI equation should not be used for patients with unstable renal function and has not been validated in children and those over 70. Current interpretive data was last reviewed 2021. Blood 01/15/2025 7:47 PM CDT 01/15/2025 8:25 PM CDT Rosa Beltran NP LAB BLOOD ORDERABLES Final Re sult [facility] Department [place] [address] * (ABNORMAL) Differential, auto (01/15/2025 7:47 PM CDT) [facility] Neutrophil abs 7.63(H) 1.50 - 6.50 K/cumm Imm gran abs 0.07 0.00 - 0.10 K/cumm [facility] Lymphocyte abs 0.55(L) 0.80 - 3.30 K/cumm [facility] Monocyte abs 0.50 0.20 - 0.80 K/cumm [facility] Eosinophil abs 0.12 0.00 - 0.50 K/cumm [facility] Basophil abs 0.04 0.00 - 0.10 K/cumm [facility] Neutrophil pct 85.7 % [facility] Comment: Interpretive Data Percent cell count reference ranges are not reported, since discordance with absolute values may lead to misinterpretation of CBC data. Current Interpretive Data was last revised on 2017. Imm gran pct 0.8 % [facility] Comment: Interpretive Data Percent cell count reference ranges are not reported, since discordance with absolute values may lead to misinterpretation of CBC data. Current Interpretive Data was last revised on 2017. Lymphocyte pct 6.2 % [facility] Comment: Interpretive Data Percent cell count reference ranges are not reported, since discordance with absolute values may lead to misinterpretation of CBC data. Current Interpretive Data was last revised on 2017. Monocyte pct 5.6 % [facility] Comment: Interpretive Data Percent cell count reference ranges are not reported, since discordance with absolute values may lead to misinterpretation of CBC data. Current Interpretive Data was last revised on 2017. Eosinophil pct 1.3 % [facility] Comment: Interpretive Data Percent cell count reference ranges are not reported, since discordance with absolute values may lead to misinterpretation of CBC data. Current Interpretive Data was last revised on 2017. Basophil pct 0.4 % [facility] Comment: Interpretive Data Percent cell count reference ranges are not reported, since discordance with absolute values may lead to misinterpretation of CBC data. Current Interpretive Data was last revised on 2017. Blood 01/15/2025 7:47 PM CDT 01/15/2025 9:03 PM CDT Rosa Beltran NP LAB BLOOD ORDERABLES Final Re sult [facility] Department [place] [address] * (ABNORMAL) CBC with auto differential (01/15/2025 7:47 PM CDT) WBC 8.91 3.80 - 9.90 K/cumm Hgb 9.1(L) 13.0 - 17.5 g/dL [facility] Hct 28.6(L) 38.9 - 50.3 % [facility] Plt 301 150 - 400 K/cumm [facility] MPV 10.3 9.1 - 12.3 fL [facility] RBC 2.90(L) 4.30 - 5.80 M/cumm [facility] MCV 98.6(H) 81.3 - 96.4 fL [facility] MCH 31.4 27.1 - 33.3 pg [facility] MCHC 31.8(L) 32.3 - 35.7 g/dL [facility] RDW CV 16.9(H) 11.1 - 14.9 % [facility] RDW SD 61.0(H) 35.7 - 48.1 fL [facility] NRBC abs 0.00 0.00 - 0.01 K/cumm [facility] Blood 01/15/2025 7:47 PM CDT 01/15/2025 9:03 PM CDT Rosa Beltran FIELD CONSULTANT LAB BLOOD ORDERABLES Final Re sult Performing Organization Address City/[facility]/ZIP Co de Phone Number [facility] Department [place] [address] * Phosphorus (01/15/2025 7:47 PM CDT) Phosphorus, pl 4.1 2.3 - 4.5 mg/dL Blood 01/15/2025 7:47 PM CDT 01/15/2025 8:25 PM CDT Rosa Beltran FIELD CONSULTANT LAB BLOOD ORDERABLES Final Re sult [facility] Department [place] [address] * Magnesium (01/15/2025 7:47 PM CDT) Pathologist [facility] Magnesium 2.3 1.4 - 2.5 mg/dL Blood 01/15/2025 7:47 PM CDT 01/15/2025 8:25 PM CDT Rosa Beltran FIELD CONSULTANT LAB BLOOD ORDERABLES Final Re sult [facility] Department [place] [address] * (ABNORMAL) Basic metabolic panel (01/15/2025 7:47 PM CDT) Sodium 137 135 - 145 mmol/L Potassium, pl 4.4 3.3 - 4.9 mmol/L [facility] Chloride 102 97 - 110 mmol/L [facility] CO2 23 22 - 32 mmol/L [facility] Anion gap 12 2 - 15 mmol/L [facility] BUN 35(H) 6 - 25 mg/dL [facility] Creatinine 1.40(H) 0.80 - 1.30 mg/dL [facility] Glucose 145 70 - 199 mg/dL [facility] Comment: Interpretive Data Fasting glucose >/= 126 mg/dl is diagnostic for diabetes. Fasting is defined as no caloric intake for at least 8 hours. Fasting glucose between 100 mg/dl to 125 mg/dl is diagnostic of prediabetes. In a patient with classic symptoms of hyperglycemia or hyperglycemic crisis, a random glucose >/= 200 mg/dl is diagnostic for diabetes. In the absence of unequivocal hyperglycemia, results should be confirmed by repeat testing. The classification and Diagnosis of Diabetes Diabetes Care 2021; 46: S19-S40. Current interpretive data was last revised 2022. Calcium 8.1(L) 8.5 - 10.3 mg/dL [facility] Blood 01/15/2025 7:47 PM CDT 01/15/2025 8:25 PM CDT Rosa Beltran FIELD CONSULTANT LAB BLOOD ORDERABLES Final Re sult [facility] Department [place] [address] * Infection Prevention Blanche auris PCR, surveillance Axilla/Groin (01/15/2025 5:51 AM CDT) [facility] Blanche auris DNA Not Detected Not Detected [facility] Comment: Interpretive Data Testing performed by [facility] using the Daquan flaquita 6800 Blanche auris assay. This assay detects DNA from Blanche auris using Real-Time PCR. This assay is laboratory developed and is not cleared by the [place] Food and Drug Administration. The performance characteristics have been verified by the [facility]. Axilla/Groin 01/15/2025 5:51 AM CDT 01/15/2025 6:11 AM CDT Narrative [facility] - 01/15/2025 12:39 PM CDT Order placed by [facility] due to ring surveillance. Instant Order Generic Provider LAB MICROBIOLOGY - GENERAL ORDERABLES Final Result [facility] Department [place] [address] [facility] * Potassium, whole blood (01/15/2025 5:51 AM CDT) [facility] Potassium, bld 4.1 3.3 - 4.9 mmol/L Blood 01/15/2025 5:51 AM CDT 01/15/2025 5:57 AM CDT Jyotnsa Salazar FIELD CONSULTANT LAB BLOOD ORDERABLES Final Result [facility] Department [place] [address] * (ABNORMAL) eGFR (01/14/2025 8:45 PM CDT) [facility] eGFR 56(L) >=60 mL/min/1. 73 m2 Comment: Interpretive Data Reference Interval Normal >/= 90 mL/min/1.73m2 Mildly decreased* 60 - 89 mL/min/1.73m2 Mildly to moderately decreased 45 - 59 mL/min/1.73m2 Moderately to severely decreased 30 - 44 mL/min/1.73m2 Severely decreased 15 - 29 mL/min/1.73m2 Kidney Failure < 15 mL/min/1.73m2 *Relative to young adult level Estimated glomerular filtration rate is determined by the 2020 CKD-EPI equation recommended by the National Kidney Foundation (A Unifying Approach to GFR Estimation: Recommendations of the NKF-ASK Task Force on Reassessing the Inclusion of Race in Diagnosing Kidney Disease, JASN 202). The CKD-EPI equation should not be used for patients with unstable renal function and has not been validated in children and those over 70. Current interpretive data was last reviewed 2021. Blood 01/14/2025 8:45 PM CDT 01/14/2025 10:05 PM CDT Rosa Beltran NP LAB BLOOD ORDERABLES Final Re sult [facility] [address] [facility] Department [place] [address] * (ABNORMAL) Differential, auto (01/14/2025 8:45 PM CDT) Neutrophil abs 7.22(H) 1.50 - 6.50 K/cumm Imm gran abs 0.08 0.00 - 0.10 K/cumm [facility] Lymphocyte abs 0.49(L) 0.80 - 3.30 K/cumm [facility] Monocyte abs 0.67 0.20 - 0.80 K/cumm [facility] Eosinophil abs 0.14 0.00 - 0.50 K/cumm [facility] Basophil abs 0.05 0.00 - 0.10 K/cumm [facility] Neutrophil pct 83.5 % [facility] Comment: Interpretive Data Percent cell count reference ranges are not reported, since discordance with absolute values may lead to misinterpretation of CBC data. Current Interpretive Data was last revised on 2017. Imm gran pct 0.9 % [facility] Comment: Interpretive Data Percent cell count reference ranges are not reported, since discordance with absolute values may lead to misinterpretation of CBC data. Current Interpretive Data was last revised on 2017. Lymphocyte pct 5.7 % [facility] Comment: Interpretive Data Percent cell count reference ranges are not reported, since discordance with absolute values may lead to misinterpretation of CBC data. Current Interpretive Data was last revised on 2017. Monocyte pct 7.7 % [facility] Comment: Interpretive Data Percent cell count reference ranges are not reported, since discordance with absolute values may lead to misinterpretation of CBC data. Current Interpretive Data was last revised on 2017. Eosinophil pct 1.6 % [facility] Comment: Interpretive Data Percent cell count reference ranges are not reported, since discordance with absolute values may lead to misinterpretation of CBC data. Current Interpretive Data was last revised on 2017. Basophil pct 0.6 % [facility] Comment: Interpretive Data Percent cell count reference ranges are not reported, since discordance with absolute values may lead to misinterpretation of CBC data. Current Interpretive Data was last revised on 2017. Blood 01/14/2025 8:45 PM CDT 01/14/2025 9:59 PM CDT Rosa Beltran NP LAB BLOOD ORDERABLES Final Re sult [facility] [address] [facility] Department [place] [address] * (ABNORMAL) CBC with auto differential (01/14/2025 8:45 PM CDT) WBC 8.65 3.80 - 9.90 K/cumm Hgb 8.9(L) 13.0 - 17.5 g/dL [facility] Hct 27.0(L) 38.9 - 50.3 % [facility] Plt 302 150 - 400 K/cumm [facility] MPV 10.1 9.1 - 12.3 fL [facility] RBC 2.81(L) 4.30 - 5.80 M/cumm [facility] MCV 96.1 81.3 - 96.4 fL [facility] MCH 31.7 27.1 - 33.3 pg [facility] MCHC 33.0 32.3 - 35.7 g/dL [facility] RDW CV 17.2(H) 11.1 - 14.9 % [facility] RDW SD 61.4(H) 35.7 - 48.1 fL [facility] NRBC abs 0.00 0.00 - 0.01 K/cumm [facility] Blood 01/14/2025 8:45 PM CDT 01/14/2025 9:59 PM CDT Rosa Beltran NP LAB BLOOD ORDERABLES Final Re sult Performing Organization Address [facility] [place] [address] * Type and screen (01/14/2025 8:45 PM CDT) ABO Rh A Positive Becca, indirect Negative [facility] Blood 01/14/2025 8:45 PM CDT 01/14/2025 10:10 PM CDT Narrative [facility] - 01/14/2025 11:33 PM CDT Has the patient had Daratumumab or Isatuximab in the past 6 months?->Unknown Rosa Beltran [facility] BLOOD BANK TEST ORDERABLE S Final Result Performing Organization Address [facility] de Phone Number [facility] [place] [address] * Phosphorus (01/14/2025 8:45 PM CDT) Phosphorus, pl 4.0 2.3 - 4.5 mg/dL Blood 01/14/2025 8:45 PM CDT 01/14/2025 9:57 PM CDT Rosa Beltran FIELD CONSULTANT LAB BLOOD ORDERABLES Final Re sult Performing Organization Address [facility] Co de Phone Number [facility] [place] [address] * Magnesium (01/14/2025 8:45 PM CDT) [facility] Magnesium 2.2 1.4 - 2.5 mg/dL Blood 01/14/2025 8:45 PM CDT 01/14/2025 9:57 PM CDT Rosa Beltran NP LAB BLOOD ORDERABLES Final Re sult Performing Organization Address City/[facility]/ZIP Co de Phone Number [facility] [place] [address] * (ABNORMAL) Hepatic function panel (01/14/2025 8:45 PM CDT) [facility] Bilirubin, total 0.5 0.1 - 1.2 mg/dL Bilirubin, direct 0.2 0.1 - 0.3 mg/dL [facility] Protein, pl 5.8(L) 6.5 - 8.5 g/dL [facility] Albumin 2.9(L) 3.5 - 5.0 g/dL [facility] Alk phos 73 40 - 130 Units/L [facility] ALT 33 7 - 55 Units/L [facility] AST 19 10 - 50 Units/L [facility] Blood 01/14/2025 8:45 PM CDT 01/14/2025 9:57 PM CDT Parth Dalton MD LAB BLOOD ORDERABLES Final Re sult Performing Organization Address City/[facility]/ZIP Co de Phone Number [facility] Department [place] [address] * (ABNORMAL) Basic metabolic panel (01/14/2025 8:45 PM CDT) [facility] Sodium 137 135 - 145 mmol/L Potassium, pl 4.5 3.3 - 4.9 mmol/L [facility] Chloride 101 97 - 110 mmol/L [facility] CO2 25 22 - 32 mmol/L [facility] Anion gap 11 2 - 15 mmol/L [facility] BUN 39(H) 6 - 25 mg/dL [facility] Creatinine 1.34(H) 0.80 - 1.30 mg/dL [facility] Glucose 120 70 - 199 mg/dL [facility] Comment: Interpretive Data Fasting glucose >/= 126 mg/dl is diagnostic for diabetes. Fasting is defined as no caloric intake for at least 8 hours. Fasting glucose between 100 mg/dl to 125 mg/dl is diagnostic of prediabetes. In a patient with classic symptoms of hyperglycemia or hyperglycemic crisis, a random glucose >/= 200 mg/dl is diagnostic for diabetes. In the absence of unequivocal hyperglycemia, results should be confirmed by repeat testing. The classification and Diagnosis of Diabetes Diabetes Care 2021; 46: S19-S40. Current interpretive data was last revised 2022. Calcium 8.0(L) 8.5 - 10.3 mg/dL [facility] Blood 01/14/2025 8:45 PM CDT 01/14/2025 9:57 PM CDT Rosa Beltran NP LAB BLOOD ORDERABLES Final Re sult [facility] [address] [facility] Department [place] [address] * XR Chest 1 View (01/14/2025 6:52 PM CDT) Anatomical Region Laterality Modality Body, Chest N/A Computed Radiogr aphy 01/15/2025 9:16 AM CDT Impressions 01/15/2025 1:48 PM CDT Comparison is made with 01/11/2025. CT 01/12/2025. * Tracheostomy projects over the thoracic inlet. * Small bowel feeding tube projects below diaphragm with tip outside of the field of view. * Right upper extremity peripherally inserted central venous catheter tip terminates at the superior cavoatrial junction * Sternal plates and screws project over the mediastinum. Unchanged moderately enlarged cardiomediastinal silhouette. Unchanged, left greater than right bibasilar atelectasis. Unchanged small left pleural effusion. There is no pneumothorax. Dictated by: Reinaldo Becerra M.D. The radiology attending physician has personally reviewed this study, and had reviewed and/or edited this written report and agrees with it. Electronically signed by: Magnus Farah M.D. Narrative 01/15/2025 1:48 PM CDT EXAMINATION: 1 view chest radiograph Procedure Note Magnus Farah MD - 01/15/2025 EXAMINATION: 1 view chest radiograph IMPRESSION: Comparison is made with 01/11/2025. CT 01/12/2025. * Tracheostomy projects over the thoracic inlet. * Small bowel feeding tube projects below diaphragm with tip outside of the field of view. * Right upper extremity peripherally inserted central venous catheter tip terminates at the superior cavoatrial junction * Sternal plates and screws project over the mediastinum. Unchanged moderately enlarged cardiomediastinal silhouette. Unchanged, left greater than right bibasilar atelectasis. Unchanged small left pleural effusion. There is no pneumothorax. Dictated by: Reinaldo Becerra M.D. The radiology attending physician has personally reviewed this study, and had reviewed and/or edited this written report and agrees with it. Electronically signed by: Magnus Farah M.D. us Marci Rater FIELD CONSULTANT IMG XR PROCEDURES Final Result * (ABNORMAL) eGFR (01/13/2025 10:00 PM CDT) eGFR 51(L) >=60 mL/min/1. 73 m2 Comment: Interpretive Data Reference Interval Normal >/= 90 mL/min/1.73m2 Mildly decreased* 60 - 89 mL/min/1.73m2 Mildly to moderately decreased 45 - 59 mL/min/1.73m2 Moderately to severely decreased 30 - 44 mL/min/1.73m2 Severely decreased 15 - 29 mL/min/1.73m2 Kidney Failure < 15 mL/min/1.73m2 *Relative to young adult level Estimated glomerular filtration rate is determined by the 2020 CKD-EPI equation recommended by the National Kidney Foundation (A Unifying Approach to GFR Estimation: Recommendations of the NKF-ASK Task Force on Reassessing the Inclusion of Race in Diagnosing Kidney Disease, JASN 202). The CKD-EPI equation should not be used for patients with unstable renal function and has not been validated in children and those over 70. Current interpretive data was last reviewed 2021. Blood 01/13/2025 10:0 0 PM CDT 01/13/2025 10:43 PM CDT Rosa Beltran NP LAB BLOOD ORDERABLES Final Re sult [facility] [address] [facility] Department [place] [address] * (ABNORMAL) Differential, auto (01/13/2025 10:00 PM CDT) Neutrophil abs 7.65(H) 1.50 - 6.50 K/cumm Imm gran abs 0.09 0.00 - 0.10 K/cumm [facility] Lymphocyte abs 0.64(L) 0.80 - 3.30 K/cumm [facility] Monocyte abs 0.87(H) 0.20 - 0.80 K/cumm [facility] Eosinophil abs 0.14 0.00 - 0.50 K/cumm [facility] Basophil abs 0.04 0.00 - 0.10 K/cumm [facility] Neutrophil pct 81.1 % [facility] Comment: Interpretive Data Percent cell count reference ranges are not reported, since discordance with absolute values may lead to misinterpretation of CBC data. Current Interpretive Data was last revised on 2017. Imm gran pct 1.0 % [facility] Comment: Interpretive Data Percent cell count reference ranges are not reported, since discordance with absolute values may lead to misinterpretation of CBC data. Current Interpretive Data was last revised on 2017. Lymphocyte pct 6.8 % [facility] Comment: Interpretive Data Percent cell count reference ranges are not reported, since discordance with absolute values may lead to misinterpretation of CBC data. Current Interpretive Data was last revised on 2017. Monocyte pct 9.2 % [facility] Comment: Interpretive Data Percent cell count reference ranges are not reported, since discordance with absolute values may lead to misinterpretation of CBC data. Current Interpretive Data was last revised on 2017. Eosinophil pct 1.5 % [facility] Comment: Interpretive Data Percent cell count reference ranges are not reported, since discordance with absolute values may lead to misinterpretation of CBC data. Current Interpretive Data was last revised on 2017. Basophil pct 0.4 % [facility] Comment: Interpretive Data Percent cell count reference ranges are not reported, since discordance with absolute values may lead to misinterpretation of CBC data. Current Interpretive Data was last revised on 2017. Blood 01/13/2025 10:0 0 PM CDT 01/13/2025 10:43 PM CDT Rosa Beltran FIELD CONSULTANT LAB BLOOD ORDERABLES Final Re sult [facility] [address] [facility] Department [place] [address] * (ABNORMAL) CBC with auto differential (01/13/2025 10:00 PM CDT) WBC 9.43 3.80 - 9.90 K/cumm Hgb 9.3(L) 13.0 - 17.5 g/dL [facility] Hct 27.4(L) 38.9 - 50.3 % [facility] Plt 319 150 - 400 K/cumm [facility] MPV 10.2 9.1 - 12.3 fL [facility] RBC 2.88(L) 4.30 - 5.80 M/cumm [facility] MCV 95.1 81.3 - 96.4 fL [facility] MCH 32.3 27.1 - 33.3 pg [facility] MCHC 33.9 32.3 - 35.7 g/dL [facility] RDW CV 17.7(H) 11.1 - 14.9 % [facility] RDW SD 61.7(H) 35.7 - 48.1 fL [facility] NRBC abs 0.00 0.00 - 0.01 K/cumm [facility] Blood 01/13/2025 10:0 0 PM CDT 01/13/2025 10:43 PM CDT Rosa Beltran FIELD CONSULTANT LAB BLOOD ORDERABLES Final Re sult Performing Organization Address City/[facility]/ZIP Co de Phone Number [facility] [place] [address] * (ABNORMAL) Phosphorus (01/13/2025 10:00 PM CDT) Pathologist [facility] Phosphorus, pl 4.8(H) 2.3 - 4.5 mg/dL Blood 01/13/2025 10:0 0 PM CDT 01/13/2025 10:43 PM CDT Rosa Beltran FIELD CONSULTANT LAB BLOOD ORDERABLES Final Re sult Performing Organization Address [facility] Co de Phone Number [facility] [place] [address] * Magnesium (01/13/2025 10:00 PM CDT) Pathologist [facility] Magnesium 2.1 1.4 - 2.5 mg/dL Blood 01/13/2025 10:0 0 PM CDT 01/13/2025 10:43 PM CDT Rosa Beltran FIELD CONSULTANT LAB BLOOD ORDERABLES Final Re sult Performing Organization Address City/[facility] [place] [address] * (ABNORMAL) Basic metabolic panel (01/13/2025 10:00 PM CDT) Pathologist [facility] Sodium 139 135 - 145 mmol/L Potassium, pl 4.8 3.3 - 4.9 mmol/L [facility] Chloride 102 97 - 110 mmol/L [facility] CO2 26 22 - 32 mmol/L [facility] Anion gap 11 2 - 15 mmol/L [facility] BUN 42(H) 6 - 25 mg/dL [facility] Creatinine 1.43(H) 0.80 - 1.30 mg/dL [facility] Glucose 86 70 - 199 mg/dL [facility] Comment: Interpretive Data Fasting glucose >/= 126 mg/dl is diagnostic for diabetes. Fasting is defined as no caloric intake for at least 8 hours. Fasting glucose between 100 mg/dl to 125 mg/dl is diagnostic of prediabetes. In a patient with classic symptoms of hyperglycemia or hyperglycemic crisis, a random glucose >/= 200 mg/dl is diagnostic for diabetes. In the absence of unequivocal hyperglycemia, results should be confirmed by repeat testing. The classification and Diagnosis of Diabetes Diabetes Care 2021; 46: S19-S40. Current interpretive data was last revised 2022. Calcium 8.4(L) 8.5 - 10.3 mg/dL [facility] Blood 01/13/2025 10:0 0 PM CDT 01/13/2025 10:43 PM CDT Rosa Beltran NP LAB BLOOD ORDERABLES Final Re sult Performing Organization Address City/[facility]/ZIP Co de Phone Number [facility] Department [place] [address] * Potassium, whole blood (01/13/2025 6:49 AM CDT) Pathologist [facility] Potassium, bld 4.5 3.3 - 4.9 mmol/L Blood 01/13/2025 6:49 AM CDT 01/13/2025 6:56 AM CDT Parth Dalton MD LAB BLOOD ORDERABLES Final Re sult Performing Organization Address City/[facility]/ZIP Co de Phone Number [facility] Department [place] [address] * Lactate, whole blood (01/13/2025 6:49 AM CDT) [facility] Lactate, bld 0.9 0.7 - 2.0 mmol/L Blood 01/13/2025 6:49 AM CDT 01/13/2025 6:56 AM CDT Rosa Beltran NP LAB BLOOD ORDERABLES Final Re sult [facility] [address] [facility] Department [place] [address] * (ABNORMAL) CBC without differential (01/13/2025 6:49 AM CDT) [facility] WBC 7.74 3.80 - 9.90 K/cumm Hgb 10.1(L) 13.0 - 17.5 g/dL [facility] Hct 30.4(L) 38.9 - 50.3 % [facility] Plt 291 150 - 400 K/cumm [facility] MPV 9.8 9.1 - 12.3 fL [facility] RBC 3.17(L) 4.30 - 5.80 M/cumm [facility] MCV 95.9 81.3 - 96.4 fL [facility] Comment:MCV delta due to beau arent blood transfusion. MCH 31.9 27.1 - 33.3 pg [facility] MCHC 33.2 32.3 - 35.7 g/dL [facility] RDW CV 18.1(H) 11.1 - 14.9 % [facility] RDW SD 64.9(H) 35.7 - 48.1 fL [facility] NRBC abs 0.00 0.00 - 0.01 K/cumm [facility] Blood 01/13/2025 6:49 AM CDT 01/13/2025 6:56 AM CDT Narrative [facility] - 01/13/2025 7:26 AM CDT 1 hour after transfusion of red blood cells is complete Rosa Beltran FIELD CONSULTANT LAB BLOOD ORDERABLES Final Re sult Performing Organization Address City/[facility]/ZIP Co de Phone Number [facility] Department [place] [address] * Transfuse RBC (01/13/2025 4:01 AM CDT) Blood us Rosa Beltran NP BLOOD TRANSFUSION ORDERABLES Final Result Performing Organization Address [facility] Co de Phone Number [facility] Department [place] [address] * (ABNORMAL) Aerobic culture and gram stain Tracheal aspirate Tracheal (01/13/2025 2:28 AM CDT) Direct Specimen Exam Stain: Abundant polymorphonuclear leukocytes seen. Abundant squamous epithelial cells seen indicating excessive oral pharyngeal contamination Abundant mixed bacterial katja seen on Gram stain. Report Final Report: Greater than or equal to 100,000 colonies/ml of Stenotrophomonas maltophilia Plus growth of clinically insignificant bacterial katja. (.) [facility] Organism STENOTROPHOMONAS MALTOPHILIA [facility] Organism PLUS GROWTH OF CLINICALLY INSIGNIFICANT KATJA. [facility] Tracheal aspirate (Tracheal) 01/13/2025 2:28 AM CDT 01/13/2025 3:35 AM CDT Narrative [facility] - 01/15/2025 2:01 PM CDT Testing performed by [facility] ([phone]) Specimens submitted from normally sterile body sites will have all bacterial morphotypes identified. Specimens that contain grossly mixed katja and/or are from body sites that are not normally sterile will be examined for Staphylococcus aureus, Pseudomonas aeruginosa, beta-hemolytic strep, vancomycin-resistant Enterococcus and fungus. If any of these are isolated, the organism will be reported. Current interpretive data was last revised on 2016. Organism Antibiotic Method Susceptibility Stenotrophomonas maltophilia Trimethopri m with Sulfamethoxazole INTERPRETATION Susceptible Stenotrophomonas maltophilia Minocycline INTERPRETATI ON Resistant Stenotrophomonas maltophilia Levofloxacin INTERPRETATI ON Resistant Stenotrophomonas maltophilia Cefiderocol INTERPRETATI ON Susceptible us Rosa Beltran NP LAB MICROBIOLOGY - GENERAL OR DERABLES Final Result CYNTHIA MURPHY [facility] Department [place] [address] * Blood culture Blood (01/13/2025 2:18 AM CDT) Report Final Report: No growth Blood 01/13/2025 2:18 AM CDT 01/13/2025 2:43 AM CDT Narrative CYNTHIA OKEEFE - 01/17/2025 7:01 AM CDT Collection->Peripheral 1. Blood cultures are incubated for 4 days on a continuously monitored blood culture system. The first report of a negative culture is issued within 24 hours of receipt of the specimen in the laboratory. 2. Positive culture results are reported as soon as they are detected. 3. The most important factor for detection of microbes in the setting of bloodstream infection is the volume of blood submitted for culture. Failure to collect an optimal blood volume can result in false negative blood cultures. 4. For pediatric patients, the recommended blood volume to collect follows a weight based strategy. See the electronic test catalog for collection instructions. 5. For positive blood cultures, a rapid molecular test may be performed for organism identification using the flaquita ePlex blood culture identification panel for gram positive (BCID-GP) and gram negative (BCID-GN) organisms. This nucleic acid amplification test detects microbial DNA in positive blood culture broth. This assay has been cleared by the [place] Food and Drug Administration and its performance characteristics have been verified by the [facility]. For questions about this culture, contact the Microbiology Laboratory at [phone]. Interpretive data was last revised on 24. Rosa Beltran NP LAB MICROBIOLOGY - GENERAL OR DERABLES Final Result [facility] MURPHY [facility] Department [place] [address] * Blood culture Blood (01/13/2025 2:18 AM CDT) Report Final Report: No growth Blood 01/13/2025 2:18 AM CDT 01/13/2025 2:43 AM CDT Narrative CYNTHIA MURPHY - 01/17/2025 7:01 AM CDT Collection->Peripheral 1. Blood cultures are incubated for 4 days on a continuously monitored blood culture system. The first report of a negative culture is issued within 24 hours of receipt of the specimen in the laboratory. 2. Positive culture results are reported as soon as they are detected. 3. The most important factor for detection of microbes in the setting of bloodstream infection is the volume of blood submitted for culture. Failure to collect an optimal blood volume can result in false negative blood cultures. 4. For pediatric patients, the recommended blood volume to collect follows a weight based strategy. See the electronic test catalog for collection instructions. 5. For positive blood cultures, a rapid molecular test may be performed for organism identification using the flaquita ePlex blood culture identification panel for gram positive (BCID-GP) and gram negative (BCID-GN) organisms. This nucleic acid amplification test detects microbial DNA in positive blood culture broth. This assay has been cleared by the [place] Food and Drug Administration and its performance characteristics have been verified by the [facility]. For questions about this culture, contact the Microbiology Laboratory at [phone]. Interpretive data was last revised on 24. Rosa Beltran NP LAB MICROBIOLOGY - GENERAL OR DERABLES Final Result [facility] Department [place] [address] * Transfuse RBC (01/13/2025 12:41 AM CDT) Blood Rosa Beltran NP BLOOD TRANSFUSION ORDERABLES Final Result [facility] Department [place] [address] * CT Chest Abdomen Pelvis WO Contrast (01/13/2025 12:11 AM CDT) Anatomical Region Laterality Modality Body N/A Computed Tomogra phy 01/13/2025 12:3 9 AM CDT Impressions 01/13/2025 8:04 AM CDT 1. Postsurgical changes of coronary bypass and median sternotomy with trace postsurgical pneumomediastinum and pericardial fluid. 2. New area of confluent soft tissue attenuation seen within the pelvis may represent nondistended small bowel, although evaluation is limited due to noncontrast technique. Small volume hemoperitoneum is less likely but may have a similar appearance. There is no large intramuscular hematoma or other imaging explanation for the patient's decrease in hemoglobin. If clinically indicated, repeat evaluation with contrast enhancement may be obtained. The Non Critical results were discussed with FIELD CONSULTANT Ruby by Dr. Max Butts MD PHD on 01/13/2025 12:37 AM. Dictated by: Max Butts MD PHD The radiology attending physician has personally reviewed this study, and had reviewed and/or edited this written report and agrees with it. Electronically signed by: Mundo Zhou M.D. Narrative 01/13/2025 8:04 AM CDT EXAMINATION: Computed tomography of the chest, abdomen and pelvis without intravenous contrast HISTORY: Decreased hemoglobin after coronary bypass TECHNIQUE: Transaxial computed tomographic images of the chest, abdomen and pelvis were obtained without intravenous contrast according to the standard protocol. COMPARISON: CT 12/24/2024 FINDINGS: Chest: Lung windows demonstrate bilateral dependent atelectasis and trace pleural effusions. Trace left apical pneumothorax. The patient is status post tracheostomy. Feeding tube terminates in the 3rd segment of the duodenum. Postsurgical changes of coronary bypass with median sternotomy. Calcified coronary atherosclerosis. Trace postsurgical pneumomediastinum and pericardial fluid. Epicardial pacing wires are seen. Right upper extremity approach peripherally inserted central venous catheter terminates in the right atrium. Left atrial appendage clip. No suspicious intrathoracic lymphadenopathy with limitation of noncontrast technique. Nondistended thoracic esophagus. Abdomen/Pelvis: Normal noncontrast appearance of the liver. No biliary ductal dilatation. Nondistended gallbladder. Normal noncontrast appearance of the spleen, adrenal glands, and pancreas. Surgically absent right kidney. No left hydronephrosis. Hypodense material is seen throughout the colon compatible with ingested barium. Colonic diverticulosis. Nondistended urinary bladder containing gas with Goldstein catheter in position. No evidence of bowel obstruction. No pneumoperitoneum. An area of confluent soft tissue attenuation within the pelvis is seen on series 2 image 234. No intramuscular hematoma. No organized fluid collection. Moderate calcified atherosclerosis of the abdominal aorta. No discrete lymphadenopathy in the abdomen and pelvis with limitation of noncontrast technique. Multiple pelvic fracture deformities. Calcification seen in the right gluteal musculature. Degenerative changes of the spine. Multiple bilateral old rib fracture deformities are seen. No suspicious osseous lesion. Procedure Note Mundo Zhou MD - 01/13/2025 EXAMINATION: Computed tomography of the chest, abdomen and pelvis without intravenous contrast HISTORY: Decreased hemoglobin after coronary bypass TECHNIQUE: Transaxial computed tomographic images of the chest, abdomen and pelvis were obtained without intravenous contrast according to the standard protocol. COMPARISON: CT 12/24/2024 FINDINGS: Chest: Lung windows demonstrate bilateral dependent atelectasis and trace pleural effusions. Trace left apical pneumothorax. The patient is status post tracheostomy. Feeding tube terminates in the 3rd segment of the duodenum. Postsurgical changes of coronary bypass with median sternotomy. Calcified coronary atherosclerosis. Trace postsurgical pneumomediastinum and pericardial fluid. Epicardial pacing wires are seen. Right upper extremity approach peripherally inserted central venous catheter terminates in the right atrium. Left atrial appendage clip. No suspicious intrathoracic lymphadenopathy with limitation of noncontrast technique. Nondistended thoracic esophagus. Abdomen/Pelvis: Normal noncontrast appearance of the liver. No biliary ductal dilatation. Nondistended gallbladder. Normal noncontrast appearance of the spleen, adrenal glands, and pancreas. Surgically absent right kidney. No left hydronephrosis. Hypodense material is seen throughout the colon compatible with ingested barium. Colonic diverticulosis. Nondistended urinary bladder containing gas with Goldstein catheter in position. No evidence of bowel obstruction. No pneumoperitoneum. An area of confluent soft tissue attenuation within the pelvis is seen on series 2 image 234. No intramuscular hematoma. No organized fluid collection. Moderate calcified atherosclerosis of the abdominal aorta. No discrete lymphadenopathy in the abdomen and pelvis with limitation of noncontrast technique. Multiple pelvic fracture deformities. Calcification seen in the right gluteal musculature. Degenerative changes of the spine. Multiple bilateral old rib fracture deformities are seen. No suspicious osseous lesion. IMPRESSION: 1. Postsurgical changes of coronary bypass and median sternotomy with trace postsurgical pneumomediastinum and pericardial fluid. 2. New area of confluent soft tissue attenuation seen within the pelvis may represent nondistended small bowel, although evaluation is limited due to noncontrast technique. Small volume hemoperitoneum is less likely but may have a similar appearance. There is no large intramuscular hematoma or other imaging explanation for the patient's decrease in hemoglobin. If clinically indicated, repeat evaluation with contrast enhancement may be obtained. The Non Critical results were discussed with [facility] Beltran by Dr. Max Butts MD PHD on 01/13/2025 12:37 AM. Dictated by: Max Butts MD PHD The radiology attending physician has personally reviewed this study, and had reviewed and/or edited this written report and agrees with it. Electronically signed by: Mundo Zhou M.D. us Rosa Beltran NP IMG CT PROCEDURES Final Resul t * Prepare RBC: 1 Units (01/12/2025 10:53 PM CDT) Product code [id number] Unit Number [id number] Q [facility] Product Blood Type APOS [facility] Dispense Status PRESUMED TRANSFUSED [facility] Blood 01/12/2025 10:5 3 PM CDT 01/12/2025 10:53 PM CDT [facility] - 01/13/2025 4:01 PM CDT Are special requirements needed? (All products are leukoreduced and CMV- safe)- >No Date required:-20250112 LRRBC # of [id number] Reasons:-Cardiovascular disease, Hgb <8 g/dL} us Rosa Beltran NP BLOOD BANK PRODUCT ORDERABLES Final Result [facility] Department [place] [address] * Prepare RBC: 1 Units (01/12/2025 8:57 PM CDT) Product code [id number] Unit Number [id number] P [facility] Product Blood Type APOS [facility] Dispense Status PRESUMED TRANSFUSED [facility] Blood 01/12/2025 8:57 PM CDT 01/12/2025 8:58 PM CDT Narrative CYNTHIA [facility] - 01/13/2025 4:01 PM CDT Are special requirements needed? (All products are leukoreduced and CMV- safe)- >No Date required:-20250112 LRRBC # of [id number] Reasons:-Cardiovascular disease, Hgb <8 g/dL} Rosa Beltran NP BLOOD BANK PRODUCT ORDERABLES Final Result [facility] Department [place] [address] * Infection Prevention Blanche auris PCR, surveillance Axilla/Groin (01/12/2025 6:27 PM CDT) [facility] Blanche auris DNA Not Detected Not Detected [facility] Comment: Interpretive Data Testing performed by [facility] using the [employer] flaquita 6800 Blanche auris assay. This assay detects DNA from Blanche auris using Real-Time PCR. This assay is laboratory developed and is not cleared by the [facility] Food and Drug Administration. The performance characteristics have been verified by the [facility]. Axilla/Groin 01/12/2025 6:27 PM CDT 01/12/2025 6:35 PM CDT Narrative [facility] - 01/13/2025 12:31 PM CDT Order placed by [facility] due to ring surveillance. Instant Order Generic Provider LAB MICROBIOLOGY - GENERAL ORDERABLES Final Result [facility] Department [place] [address] [facility] * (ABNORMAL) eGFR (01/12/2025 6:27 PM CDT) [facility] eGFR 50(L) >=60 mL/min/1. 73 m2 Comment: Interpretive Data Reference Interval Normal >/= 90 mL/min/1.73m2 Mildly decreased* 60 - 89 mL/min/1.73m2 Mildly to moderately decreased 45 - 59 mL/min/1.73m2 Moderately to severely decreased 30 - 44 mL/min/1.73m2 Severely decreased 15 - 29 mL/min/1.73m2 Kidney Failure < 15 mL/min/1.73m2 *Relative to young adult level Estimated glomerular filtration rate is determined by the 2020 CKD-EPI equation recommended by the National Kidney Foundation (A Unifying Approach to GFR Estimation: Recommendations of the NKF-ASK Task Force on Reassessing the Inclusion of Race in Diagnosing Kidney Disease, JASN 2020). The CKD-EPI equation should not be used for patients with unstable renal function and has not been validated in children and those over 70. Current interpretive data was last reviewed 2021. Blood 01/12/2025 6:27 PM CDT 01/12/2025 6:56 PM CDT Rosa Beltran FIELD CONSULTANT LAB BLOOD ORDERABLES Final Re sult [facility] Department [place] [address] * (ABNORMAL) Differential, auto (01/12/2025 6:27 PM CDT) Neutrophil abs 8.03(H) 1.50 - 6.50 K/cumm Imm gran abs 0.12(H) 0.00 - 0.10 K/cumm [facility] Lymphocyte abs 0.72(L) 0.80 - 3.30 K/cumm [facility] Monocyte abs 0.27 0.20 - 0.80 K/cumm [facility] Eosinophil abs 0.13 0.00 - 0.50 K/cumm [facility] Basophil abs 0.04 0.00 - 0.10 K/cumm [facility] Neutrophil pct 86.3 % [facility] Comment: Interpretive Data Percent cell count reference ranges are not reported, since discordance with absolute values may lead to misinterpretation of CBC data. Current Interpretive Data was last revised on 2017. Imm gran pct 1.3 % [facility] Comment: Interpretive Data Percent cell count reference ranges are not reported, since discordance with absolute values may lead to misinterpretation of CBC data. Current Interpretive Data was last revised on 2017. Lymphocyte pct 7.7 % [facility] Comment: Interpretive Data Percent cell count reference ranges are not reported, since discordance with absolute values may lead to misinterpretation of CBC data. Current Interpretive Data was last revised on 2017. Monocyte pct 2.9 % [facility] Comment: Interpretive Data Percent cell count reference ranges are not reported, since discordance with absolute values may lead to misinterpretation of CBC data. Current Interpretive Data was last revised on 2017. Eosinophil pct 1.4 % [facility] Comment: Interpretive Data Percent cell count reference ranges are not reported, since discordance with absolute values may lead to misinterpretation of CBC data. Current Interpretive Data was last revised on 2017. Basophil pct 0.4 % [facility] Comment: Interpretive Data Percent cell count reference ranges are not reported, since discordance with absolute values may lead to misinterpretation of CBC data. Current Interpretive Data was last revised on 2017. Blood 01/12/2025 6:27 PM CDT 01/12/2025 6:56 PM CDT Rosa Beltran NP LAB BLOOD ORDERABLES Final Re sult [facility] Department [place] [address] * (ABNORMAL) CBC with auto differential (01/12/2025 6:27 PM CDT) WBC 9.31 3.80 - 9.90 K/cumm Hgb 8.0(L) 13.0 - 17.5 g/dL [facility] Hct 24.4(L) 38.9 - 50.3 % [facility] Plt 351 150 - 400 K/cumm [facility] MPV 10.0 9.1 - 12.3 fL [facility] RBC 2.40(L) 4.30 - 5.80 M/cumm [facility] MCV 101.7(H) 81.3 - 96.4 fL [facility] MCH 33.3 27.1 - 33.3 pg [facility] MCHC 32.8 32.3 - 35.7 g/dL [facility] RDW CV 13.9 11.1 - 14.9 % [facility] RDW SD 51.2(H) 35.7 - 48.1 fL [facility] NRBC abs 0.02(H) 0.00 - 0.01 K/cumm [facility] Blood 01/12/2025 6:27 PM CDT 01/12/2025 6:56 PM CDT Rosa Beltran FIELD CONSULTANT LAB BLOOD ORDERABLES Final Re sult Performing Organization Address City/[facility]/ZIP Co de Phone Number [facility] Department [place] [address] * (ABNORMAL) Phosphorus (01/12/2025 6:27 PM CDT) Phosphorus, pl 5.2(H) 2.3 - 4.5 mg/dL Blood 01/12/2025 6:27 PM CDT 01/12/2025 6:56 PM CDT Rosa Beltran FIELD CONSULTANT LAB BLOOD ORDERABLES Final Re sult [facility] Department [place] [address] * Magnesium (01/12/2025 6:27 PM CDT) Magnesium 2.0 1.4 - 2.5 mg/dL Blood 01/12/2025 6:27 PM CDT 01/12/2025 6:56 PM CDT Rosa Beltran FIELD CONSULTANT LAB BLOOD ORDERABLES Final Re sult [facility]NTH[facility] MURPHY [facility] Department [place] [address] * (ABNORMAL) Basic metabolic panel (01/12/2025 6:27 PM CDT) Sodium 140 135 - 145 mmol/L Potassium, pl 5.0(H) 3.3 - 4.9 mmol/L [facility] Chloride 103 97 - 110 mmol/L [facility] CO2 27 22 - 32 mmol/L [facility] Anion gap 10 2 - 15 mmol/L [facility] BUN 46(H) 6 - 25 mg/dL [facility] Creatinine 1.46(H) 0.80 - 1.30 mg/dL [facility] Glucose 150 70 - 199 mg/dL [facility] Comment: Interpretive Data Fasting glucose >/= 126 mg/dl is diagnostic for diabetes. Fasting is defined as no caloric intake for at least 8 hours. Fasting glucose between 100 mg/dl to 125 mg/dl is diagnostic of prediabetes. In a patient with classic symptoms of hyperglycemia or hyperglycemic crisis, a random glucose >/= 200 mg/dl is diagnostic for diabetes. In the absence of unequivocal hyperglycemia, results should be confirmed by repeat testing. The classification and Diagnosis of Diabetes Diabetes Care 202; 46: S19-S40. Current interpretive data was last revised 2022. Calcium 9.4 8.5 - 10.3 mg/dL [facility] Blood 01/12/2025 6:27 PM CDT 01/12/2025 6:56 PM CDT Rosa Beltran FIELD CONSULTANT LAB BLOOD ORDERABLES Final Re sult YCNTHIA MURPHY [facility] Department [place] [address] * (ABNORMAL) CBC without differential (01/12/2025 5:03 AM CDT) WBC 8.18 3.80 - 9.90 K/cumm Hgb 7.9(L) 13.0 - 17.5 g/dL [facility] Hct 24.1(L) 38.9 - 50.3 % [facility] Plt 355 150 - 400 K/cumm [facility] MPV 10.0 9.1 - 12.3 fL [facility] RBC 2.37(L) 4.30 - 5.80 M/cumm [facility] MCV 101.7(H) 81.3 - 96.4 fL [facility] MCH 33.3 27.1 - 33.3 pg [facility] MCHC 32.8 32.3 - 35.7 g/dL [facility] RDW CV 14.3 11.1 - 14.9 % [facility] RDW SD 53.0(H) 35.7 - 48.1 fL [facility] NRBC abs 0.00 0.00 - 0.01 K/cumm [facility] Blood 01/12/2025 5:03 AM CDT 01/12/2025 5:33 AM CDT Rosa Beltran NP LAB BLOOD ORDERABLES Final Re sult [facility] Department [place] [address] * eGFR (01/11/2025 6:25 PM CDT) eGFR 62 >=60 mL/min/1. 73 m2 Comment: Interpretive Data Reference Interval Normal >/= 90 mL/min/1.73m2 Mildly decreased* 60 - 89 mL/min/1.73m2 Mildly to moderately decreased 45 - 59 mL/min/1.73m2 Moderately to severely decreased 30 - 44 mL/min/1.73m2 Severely decreased 15 - 29 mL/min/1.73m2 Kidney Failure < 15 mL/min/1.73m2 *Relative to young adult level Estimated glomerular filtration rate is determined by the 2020 CKD-EPI equation recommended by the National Kidney Foundation (A Unifying Approach to GFR Estimation: Recommendations of the NKF-ASK Task Force on Reassessing the Inclusion of Race in Diagnosing Kidney Disease, JASN 2020). The CKD-EPI equation should not be used for patients with unstable renal function and has not been validated in children and those over 70. Current interpretive data was last reviewed 2021. Blood 01/11/2025 6:25 PM CDT 01/11/2025 7:04 PM CDT us Rosa Beltran NP LAB BLOOD ORDERABLES Final Re sult [facility] Department [place] [address] * (ABNORMAL) Differential, auto (01/11/2025 6:25 PM CDT) Neutrophil abs 7.02(H) 1.50 - 6.50 K/cumm Imm gran abs 0.16(H) 0.00 - 0.10 K/cumm [facility] Lymphocyte abs 0.49(L) 0.80 - 3.30 K/cumm [facility] Monocyte abs 0.38 0.20 - 0.80 K/cumm [facility] Eosinophil abs 0.12 0.00 - 0.50 K/cumm [facility] Basophil abs 0.03 0.00 - 0.10 K/cumm [facility] Neutrophil pct 85.5 % [facility] Comment: Interpretive Data Percent cell count reference ranges are not reported, since discordance with absolute values may lead to misinterpretation of CBC data. Current Interpretive Data was last revised on 2017. Imm gran pct 2.0 % [facility] Comment: Interpretive Data Percent cell count reference ranges are not reported, since discordance with absolute values may lead to misinterpretation of CBC data. Current Interpretive Data was last revised on 2017. Lymphocyte pct 6.0 % [facility] Comment: Interpretive Data Percent cell count reference ranges are not reported, since discordance with absolute values may lead to misinterpretation of CBC data. Current Interpretive Data was last revised on 2017. Monocyte pct 4.6 % [facility] Comment: Interpretive Data Percent cell count reference ranges are not reported, since discordance with absolute values may lead to misinterpretation of CBC data. Current Interpretive Data was last revised on 2017. Eosinophil pct 1.5 % [facility] Comment: Interpretive Data Percent cell count reference ranges are not reported, since discordance with absolute values may lead to misinterpretation of CBC data. Current Interpretive Data was last revised on 2017. Basophil pct 0.4 % [facility] Comment: Interpretive Data Percent cell count reference ranges are not reported, since discordance with absolute values may lead to misinterpretation of CBC data. Current Interpretive Data was last revised on 2017. Blood 01/11/2025 6:25 PM CDT 01/11/2025 6:53 PM CDT Rosa Beltran NP LAB BLOOD ORDERABLES Final Re sult [facility] [address] [facility] Department [place] [address] * (ABNORMAL) CBC with auto differential (01/11/2025 6:25 PM CDT) WBC 8.20 3.80 - 9.90 K/cumm Hgb 7.2(L) 13.0 - 17.5 g/dL [facility] Hct 22.2(L) 38.9 - 50.3 % [facility] Plt 301 150 - 400 K/cumm [facility] MPV 9.7 9.1 - 12.3 fL [facility] RBC 2.13(L) 4.30 - 5.80 M/cumm [facility] MCV 104.2(H) 81.3 - 96.4 fL [facility] MCH 33.8(H) 27.1 - 33.3 pg [facility] MCHC 32.4 32.3 - 35.7 g/dL [facility] RDW CV 14.2 11.1 - 14.9 % [facility] RDW SD 53.7(H) 35.7 - 48.1 fL [facility] NRBC abs 0.00 0.00 - 0.01 K/cumm [facility] Blood 01/11/2025 6:25 PM CDT 01/11/2025 6:53 PM CDT Rosa Beltran FIELD CONSULTANT LAB BLOOD ORDERABLES Final Re sult Performing Organization Address [facility] Co de Phone Number [facility] [place] [address] * Type and screen (01/11/2025 6:25 PM CDT) ABO Rh A Positive Becca, indirect Negative [facility] Blood 01/11/2025 6:25 PM CDT 01/11/2025 6:53 PM CDT Narrative [facility] - 01/11/2025 7:54 PM CDT Has the patient had Daratumumab or Isatuximab in the past 6 months?->Unknown Rosa Beltran NP LAB BLOOD BANK TEST ORDERABLE S Final Result Performing Organization Address [facility] Co de Phone Number [facility] [place] [address] * Phosphorus (01/11/2025 6:25 PM CDT) Phosphorus, pl 4.1 2.3 - 4.5 mg/dL Blood 01/11/2025 6:25 PM CDT 01/11/2025 6:50 PM CDT Rosa Beltran NP LAB BLOOD ORDERABLES Final Re sult Performing Organization Address [facility] [place] [address] * (ABNORMAL) Magnesium (01/11/2025 6:25 PM CDT) Magnesium 4.2(H) 1.4 - 2.5 mg/dL Blood 01/11/2025 6:25 PM CDT 01/11/2025 6:50 PM CDT Rosa Beltran NP LAB BLOOD ORDERABLES Final Re sult Performing Organization Address City/[facility] Co de Phone Number [facility] [place] [address] * (ABNORMAL) Hepatic function panel (01/11/2025 6:25 PM CDT) Pathologist [facility] Bilirubin, total 0.4 0.1 - 1.2 mg/dL Bilirubin, direct <0.2 0.1 - 0.3 mg/dL [facility] Protein, pl 5.6(L) 6.5 - 8.5 g/dL [facility] Albumin 2.7(L) 3.5 - 5.0 g/dL [facility] Alk phos 61 40 - 130 Units/L [facility] ALT 63(H) 7 - 55 Units/L [facility] AST 41 10 - 50 Units/L [facility] Blood 01/11/2025 6:25 PM CDT 01/11/2025 6:50 PM CDT Parth Dalton MD LAB BLOOD ORDERABLES Final Re sult Performing Organization Address [facility] Co de Phone Number [facility] Department [place] [address] * (ABNORMAL) Basic metabolic panel (01/11/2025 6:25 PM CDT) Pathologist [facility] Sodium 141 135 - 145 mmol/L Potassium, pl 4.4 3.3 - 4.9 mmol/L [facility] Chloride 110 97 - 110 mmol/L [facility] CO2 25 22 - 32 mmol/L [facility] Anion gap 6 2 - 15 mmol/L [facility] BUN 47(H) 6 - 25 mg/dL [facility] Creatinine 1.23 0.80 - 1.30 mg/dL [facility] Glucose 136 70 - 199 mg/dL [facility] Comment: Interpretive Data Fasting glucose >/= 126 mg/dl is diagnostic for diabetes. Fasting is defined as no caloric intake for at least 8 hours. Fasting glucose between 100 mg/dl to 125 mg/dl is diagnostic of prediabetes. In a patient with classic symptoms of hyperglycemia or hyperglycemic crisis, a random glucose >/= 200 mg/dl is diagnostic for diabetes. In the absence of unequivocal hyperglycemia, results should be confirmed by repeat testing. The classification and Diagnosis of Diabetes Diabetes Care 202; 46: S19-S40. Current interpretive data was last revised 2022. Calcium 8.1(L) 8.5 - 10.3 mg/dL [facility] Blood 01/11/2025 6:25 PM CDT 01/11/2025 6:50 PM CDT Rosa Beltran NP LAB BLOOD ORDERABLES Final Re sult [facility] [address] [facility] Department [place] [address] * XR Chest 1 View (01/11/2025 5:30 PM CDT) Anatomical Region Laterality Modality Body, Chest N/A Computed Radiogr aphy 01/12/2025 6:02 AM CDT Impressions 01/12/2025 6:02 AM CDT Comparison is made to prior chest radiograph dated 01/10/2025. Sternal plates are unchanged. A feeding tube courses caudally below the diaphragm, beyond the [id number]. Tip of right peripherally inserted central venous catheter terminates in the superior cavoatrial junction. There is a left atrial appendage clip. No definite pneumothorax is identified. There is mild bibasilar atelectasis. Lung volumes are small. Stable heart size. Electronically signed by: Lupe Garland M.D. Narrative 01/12/2025 6:02 AM CDT EXAMINATION: 1 view chest radiograph Procedure Note Lupe Garland MD - 01/12/2025 EXAMINATION: 1 view chest radiograph IMPRESSION: Comparison is made to prior chest radiograph dated 01/10/2025. Sternal plates are unchanged. A feeding tube courses caudally below the diaphragm, beyond the [id number]. Tip of right peripherally inserted central venous catheter terminates in the superior cavoatrial junction. There is a left atrial appendage clip. No definite pneumothorax is identified. There is mild bibasilar atelectasis. Lung volumes are small. Stable heart size. Electronically signed by: Lupe Garland M.D. Marsha Villarreal FIELD CONSULTANT IMG XR PROCEDURES Final Resul t * XR Abdomen 1 View AP (01/11/2025 5:30 PM CDT) Anatomical Region Laterality Modality Body, Abdomen N/A Computed Radiogr aphy 01/12/2025 9:56 AM CDT Impressions 01/12/2025 9:56 AM CDT Gaseous distention of stomach. Contrast filled normal caliber loops of colon. Feeding tube tip overlying 2nd portion of the duodenum. Partially imaged sternal plates. Temporary epicardial pacing wires overlying the abdomen. Left atrial appendage clip. The radiology attending physician has personally reviewed this study, and had reviewed and/or edited this written report and agrees with it. Electronically signed by: Axel Jacob M.D. Narrative 01/12/2025 9:56 AM CDT EXAMINATION: Abdomen, one view. 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 COMPARISON: 01/07/2025 Procedure Note Axel Jacob MD - 01/12/2025 EXAMINATION: Abdomen, one view. 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 COMPARISON: 01/07/2025 IMPRESSION: Gaseous distention of stomach. Contrast filled normal caliber loops of colon. Feeding tube tip overlying 2nd portion of the duodenum. Partially imaged sternal plates. Temporary epicardial pacing wires overlying the abdomen. Left atrial appendage clip. The radiology attending physician has personally reviewed this study, and had reviewed and/or edited this written report and agrees with it. Electronically signed by: Axel Jacob M.D. Marsha Villarreal FIELD CONSULTANT IMG XR PROCEDURES Final Resul t * POCT glucose (01/11/2025 11:38 AM CDT) Glucose, POC 153 70 - 199 mg/dL Blood 01/11/2025 11:3 8 AM CDT 01/11/2025 11:38 AM CDT Parth Dalton MD LAB POCT ORDERABLES - DEVICE Final Result Performing Organization Address [facility] Co de Phone Number [facility] [place] [address] * POCT glucose (01/11/2025 7:52 AM CDT) Glucose, POC 110 70 - 199 mg/dL Blood 01/11/2025 7:52 AM CDT 01/11/2025 7:52 AM CDT Parth Dalton MD LAB POCT ORDERABLES - DEVICE Final Result Performing Organization Address [facility] de Phone Number [facility] [place] [address] * POCT glucose (01/11/2025 4:11 AM CDT) Glucose, POC 107 70 - 199 mg/dL Blood 01/11/2025 4:11 AM CDT 01/11/2025 4:11 AM CDT Parth Dalton MD LAB POCT ORDERABLES - DEVICE Final Result Performing Organization Address [facility] Co de Phone Number [facility] [place] [address] * POCT glucose (01/11/2025 12:26 AM CDT) Glucose, POC 108 70 - 199 mg/dL Blood 01/11/2025 12:2 6 AM CDT 01/11/2025 12:26 AM CDT Parth Dalton MD LAB POCT ORDERABLES - DEVICE Final Result Performing Organization Address [facility] Co de Phone Number [facility] Department [place] [address] * (ABNORMAL) eGFR (01/10/2025 10:47 PM CDT) eGFR 45(L) >=60 mL/min/1. 73 m2 Comment: Interpretive Data Reference Interval Normal >/= 90 mL/min/1.73m2 Mildly decreased* 60 - 89 mL/min/1.73m2 Mildly to moderately decreased 45 - 59 mL/min/1.73m2 Moderately to severely decreased 30 - 44 mL/min/1.73m2 Severely decreased 15 - 29 mL/min/1.73m2 Kidney Failure < 15 mL/min/1.73m2 *Relative to young adult level Estimated glomerular filtration rate is determined by the 2020 CKD-EPI equation recommended by the National Kidney Foundation (A Unifying Approach to GFR Estimation: Recommendations of the NKF-ASK Task Force on Reassessing the Inclusion of Race in Diagnosing Kidney Disease, JASN 202). The CKD-EPI equation should not be used for patients with unstable renal function and has not been validated in children and those over 70. Current interpretive data was last reviewed 2021. Blood 01/10/2025 10:4 7 PM CDT 01/10/2025 11:23 PM CDT us Rosa Beltran NP LAB BLOOD ORDERABLES Final Re sult Performing Organization Address City/[facility]/ZIP Co de Phone Number [facility] Department [place] [address] * (ABNORMAL) Differential, auto (01/10/2025 10:47 PM CDT) Neutrophil abs 7.14(H) 1.50 - 6.50 K/cumm Imm gran abs 0.32(H) 0.00 - 0.10 K/cumm [facility] Lymphocyte abs 0.75(L) 0.80 - 3.30 K/cumm [facility] Monocyte abs 0.61 0.20 - 0.80 K/cumm [facility] Eosinophil abs 0.17 0.00 - 0.50 K/cumm [facility] Basophil abs 0.04 0.00 - 0.10 K/cumm [facility] Neutrophil pct 79.1 % [facility] Comment: Interpretive Data Percent cell count reference ranges are not reported, since discordance with absolute values may lead to misinterpretation of CBC data. Current Interpretive Data was last revised on 2017. Imm gran pct 3.5 % [facility] Comment: Interpretive Data Percent cell count reference ranges are not reported, since discordance with absolute values may lead to misinterpretation of CBC data. Current Interpretive Data was last revised on 2017. Lymphocyte pct 8.3 % [facility] Comment: Interpretive Data Percent cell count reference ranges are not reported, since discordance with absolute values may lead to misinterpretation of CBC data. Current Interpretive Data was last revised on 2017. Monocyte pct 6.8 % [facility] Comment: Interpretive Data Percent cell count reference ranges are not reported, since discordance with absolute values may lead to misinterpretation of CBC data. Current Interpretive Data was last revised on 2017. Eosinophil pct 1.9 % [facility] Comment: Interpretive Data Percent cell count reference ranges are not reported, since discordance with absolute values may lead to misinterpretation of CBC data. Current Interpretive Data was last revised on 2017. Basophil pct 0.4 % [facility] Comment: Interpretive Data Percent cell count reference ranges are not reported, since discordance with absolute values may lead to misinterpretation of CBC data. Current Interpretive Data was last revised on 2017. Blood 01/10/2025 10:4 7 PM CDT 01/10/2025 11:23 PM CDT Rosa Beltran FIELD CONSULTANT LAB BLOOD ORDERABLES Final Re sult Performing Organization Address City/[facility]/ZIP Co de Phone Number [facility] Department [place] [address] * (ABNORMAL) CBC with auto differential (01/10/2025 10:47 PM CDT) [facility] WBC 9.03 3.80 - 9.90 K/cumm Hgb 8.2(L) 13.0 - 17.5 g/dL [facility] Hct 25.1(L) 38.9 - 50.3 % [facility] Plt 357 150 - 400 K/cumm [facility] MPV 9.8 9.1 - 12.3 fL [facility] RBC 2.47(L) 4.30 - 5.80 M/cumm [facility] MCV 101.6(H) 81.3 - 96.4 fL [facility] MCH 33.2 27.1 - 33.3 pg [facility] MCHC 32.7 32.3 - 35.7 g/dL [facility] RDW CV 14.5 11.1 - 14.9 % [facility] RDW SD 53.6(H) 35.7 - 48.1 fL [facility] NRBC abs 0.00 0.00 - 0.01 K/cumm [facility] Blood 01/10/2025 10:4 7 PM CDT 01/10/2025 11:23 PM CDT Rosa Betlran FIELD CONSULTANT LAB BLOOD ORDERABLES Final Re sult [facility] [place] [address] * (ABNORMAL) Phosphorus (01/10/2025 10:47 PM CDT) Phosphorus, pl 5.5(H) 2.3 - 4.5 mg/dL Blood 01/10/2025 10:4 7 PM CDT 01/10/2025 11:23 PM CDT Rosa Beltran LAB BLOOD ORDERABLES Final Re sult Performing Organization Address City/[facility]/ZIP Co de Phone Number [facility] [place] [address] * Magnesium (01/10/2025 10:47 PM CDT) Pathologist [facility] Magnesium 2.3 1.4 - 2.5 mg/dL Blood 01/10/2025 10:4 7 PM CDT 01/10/2025 11:23 PM CDT [facility] BLOOD ORDERABLES Final Re sult Performing Organization Address [facility] de Phone Number [facility] [place] [address] * (ABNORMAL) Basic metabolic panel (01/10/2025 10:47 PM CDT) [facility] Sodium 143 135 - 145 mmol/L Potassium, pl 4.7 3.3 - 4.9 mmol/L [facility] Chloride 106 97 - 110 mmol/L [facility] CO2 28 22 - 32 mmol/L [facility] Anion gap 9 2 - 15 mmol/L [facility] BUN 57(H) 6 - 25 mg/dL [facility] Creatinine 1.61(H) 0.80 - 1.30 mg/dL [facility] Glucose 106 70 - 199 mg/dL [facility] Comment: Interpretive Data Fasting glucose >/= 126 mg/dl is diagnostic for diabetes. Fasting is defined as no caloric intake for at least 8 hours. Fasting glucose between 100 mg/dl to 125 mg/dl is diagnostic of prediabetes. In a patient with classic symptoms of hyperglycemia or hyperglycemic crisis, a random glucose >/= 200 mg/dl is diagnostic for diabetes. In the absence of unequivocal hyperglycemia, results should be confirmed by repeat testing. The classification and Diagnosis of Diabetes Diabetes Care 202; 46: S19-S40. Current interpretive data was last revised 2022. Calcium 9.6 8.5 - 10.3 mg/dL [facility] Blood 01/10/2025 10:4 7 PM CDT 01/10/2025 11:23 PM CDT Rosa Beltran NP LAB BLOOD ORDERABLES Final Re sult Performing Organization Address City/[facility]/ZIP Co de Phone Number [facility] [place] [address] * POCT glucose (01/10/2025 8:17 PM CDT) Glucose, POC 106 70 - 199 mg/dL Blood 01/10/2025 8:17 PM CDT 01/10/2025 8:17 PM CDT Parth Dalton MD LAB POCT ORDERABLES - DEVICE Final Result Performing Organization Address [facility] Co de Phone Number [facility] [place] [address] * POCT glucose (01/10/2025 4:49 PM CDT) Glucose, POC 146 70 - 199 mg/dL Blood 01/10/2025 4:49 PM CDT 01/10/2025 4:49 PM CDT Parth Dalton MD LAB POCT ORDERABLES - DEVICE Final Result Performing Organization Address [facility] Co de Phone Number [facility] [place] [address] * FL Modified Barium Swallow W Video (01/10/2025 3:45 PM CDT) Anatomical Region Laterality Modality Head and Neck N/A Computed Radiogr aphy 01/10/2025 4:27 PM CDT Impressions 01/10/2025 4:29 PM CDT The swallowing mechanism is abnormal; see above comments. Please refer to the Speech Pathology procedure note for safe swallow recommendations as well as additional information regarding the oral-pharyngeal swallow function, plan of care, and recommended follow up. Dictated by: Silvio Palafox M.D. The radiology attending physician has personally reviewed this study, and had reviewed and/or edited this written report and agrees with it. Electronically signed by: Axel Jacob M.D. Narrative 01/10/2025 4:29 PM CDT EXAMINATION: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 sternal plates and screws are in stable position. Stable left basilar thoracostomy tube. Small left pleural effusion with associated atelectasis, unchanged from prior. Trace right pleural effusion. No pneumothorax. The heart and mediastinal contours are stable. Dictated by: Jane Rose M.D. The radiology attending physician has personally reviewed this study, and had reviewed and/or edited this written report and agrees with it. Electronically signed by: Lupe Garland M.D. us Gloria Ledezma FIELD CONSULTANT IMG XR PROCEDURES Raquel l Result * Infection Prevention Blanche auris PCR, surveillance Axilla/Groin (01/09/2025 5:56 AM CDT) Blanche auris DNA Not Detected Not Detected [facility] Comment: Interpretive Data Testing performed by [facility] using the Daquan flaquita 6800 Blanche auris assay. This assay detects DNA from Blanche auris using Real-Time PCR. This assay is laboratory developed and is not cleared by the [facility] Food and Drug Administration. The performance characteristics have been verified by the [facility]. Axilla/Groin 01/09/2025 5:56 AM CDT 01/09/2025 7:32 AM CDT N[address]ative [facility] - 01/09/2025 2:13 PM CDT Order placed by OPA due to ring surveillance. us Instant Order Generic Provider LAB MICROBIOLOGY - GENERAL ORDERABLES Final Result [facility] Department [place] [address] [facility] * Potassium, whole blood (01/09/2025 4:36 AM CDT) Potassium, bld 3.7 3.3 - 4.9 mmol/L Blood 01/09/2025 4:36 AM CDT 01/09/2025 5:34 AM CDT us Jyotsna Salazar FIELD CONSULTANT LAB BLOOD ORDERABLES Final Result [facility] Department [place] [address] * POCT glucose (01/09/2025 4:36 AM CDT) Pathologist [facility] Glucose, POC 98 70 - 199 mg/dL Blood 01/09/2025 4:36 AM CDT 01/09/2025 4:36 AM CDT us Parth Dalton MD LAB POCT ORDERABLES - DEVICE Final Result Performing Organization Address [facility] Co de Phone Number [facility] [place] [address] * (ABNORMAL) eGFR (01/09/2025 4:31 AM CDT) [facility] eGFR 43(L) >=60 mL/min/1. 73 m2 Comment: Interpretive Data Reference Interval Normal >/= 90 mL/min/1.73m2 Mildly decreased* 60 - 89 mL/min/1.73m2 Mildly to moderately decreased 45 - 59 mL/min/1.73m2 Moderately to severely decreased 30 - 44 mL/min/1.73m2 Severely decreased 15 - 29 mL/min/1.73m2 Kidney Failure < 15 mL/min/1.73m2 *Relative to young adult level Estimated glomerular filtration rate is determined by the 2020 CKD-EPI equation recommended by the National Kidney Foundation (A Unifying Approach to GFR Estimation: Recommendations of the NKF-ASK Task Force on Reassessing the Inclusion of Race in Diagnosing Kidney Disease, JASN 2020). The CKD-EPI equation should not be used for patients with unstable renal function and has not been validated in children and those over 70. Current interpretive data was last reviewed 2021. Blood 01/09/2025 4:31 AM CDT 01/09/2025 5:43 AM CDT us Leisa Ling NP LAB BLOOD ORDERABLES Final Result Performing Organization Address City/[facility]/ZIP Co de Phone Number [facility] Department [place] [address] * (ABNORMAL) Basic metabolic panel (01/09/2025 4:31 AM CDT) Pathologist [facility] Sodium 144 135 - 145 mmol/L Potassium, pl 3.8 3.3 - 4.9 mmol/L [facility] Chloride 106 97 - 110 mmol/L [facility] CO2 29 22 - 32 mmol/L [facility] Anion gap 9 2 - 15 mmol/L [facility] BUN 55(H) 6 - 25 mg/dL [facility] Creatinine 1.65(H) 0.80 - 1.30 mg/dL [facility] Glucose 91 70 - 199 mg/dL [facility] Comment: Interpretive Data Fasting glucose >/= 126 mg/dl is diagnostic for diabetes. Fasting is defined as no caloric intake for at least 8 hours. Fasting glucose between 100 mg/dl to 125 mg/dl is diagnostic of prediabetes. In a patient with classic symptoms of hyperglycemia or hyperglycemic crisis, a random glucose >/= 200 mg/dl is diagnostic for diabetes. In the absence of unequivocal hyperglycemia, results should be confirmed by repeat testing. The classification and Diagnosis of Diabetes Diabetes Care 2021; 46: S19-S40. Current interpretive data was last revised 2022. Calcium 9.7 8.5 - 10.3 mg/dL [facility] Blood 01/09/2025 4:31 AM CDT 01/09/2025 5:43 AM CDT Leisa Ling NP LAB BLOOD ORDERABLES Final Result CYNTHIA MURPHY [facility] Department [place] [address] * POCT glucose (01/09/2025 12:27 AM CDT) [facility] Glucose, POC 87 70 - 199 mg/dL Blood 01/09/2025 12:2 7 AM CDT 01/09/2025 12:27 AM CDT Parth Dalton MD LAB POCT ORDERABLES - DEVICE Final Result Performing Organization Address [facility] Co de Phone Number [facility] [place] [address] * Potassium, whole blood (01/08/2025 8:15 PM CDT) Pathologist [facility] Potassium, bld 4.1 3.3 - 4.9 mmol/L Blood 01/08/2025 8:15 PM CDT 01/08/2025 8:24 PM CDT us Jyotsna Salazar FIELD CONSULTANT LAB BLOOD ORDERABLES Final Result Performing Organization Address [facility] Co de Phone Number [facility] [place] [address] * POCT glucose (01/08/2025 8:12 PM CDT) [facility] Glucose, POC 98 70 - 199 mg/dL Blood 01/08/2025 8:12 PM CDT 01/08/2025 8:12 PM CDT aPrth Dalton MD LAB POCT ORDERABLES - DEVICE Final Result Performing Organization Address [facility] de Phone Number [facility] [place] [address] * (ABNORMAL) eGFR (01/08/2025 8:11 PM CDT) eGFR 47(L) >=60 mL/min/1. 73 m2 Comment: Interpretive Data Reference Interval Normal >/= 90 mL/min/1.73m2 Mildly decreased* 60 - 89 mL/min/1.73m2 Mildly to moderately decreased 45 - 59 mL/min/1.73m2 Moderately to severely decreased 30 - 44 mL/min/1.73m2 Severely decreased 15 - 29 mL/min/1.73m2 Kidney Failure < 15 mL/min/1.73m2 *Relative to young adult level Estimated glomerular filtration rate is determined by the 2020 CKD-EPI equation recommended by the National Kidney [employer] (A Unifying Approach to GFR Estimation: Recommendations of the NKF-ASK Task Force on Reassessing the Inclusion of Race in Diagnosing Kidney Disease, JASN 2020). The CKD-EPI equation should not be used for patients with unstable renal function and has not been validated in children and those over 70. Current interpretive data was last reviewed 2021. Blood 01/08/2025 8:11 PM CDT 01/08/2025 8:37 PM CDT Rosa Beltran NP LAB BLOOD ORDERABLES Final Re sult [facility] Department [place] [address] * (ABNORMAL) Differential, auto (01/08/2025 8:11 PM CDT) Pathologist [facility] Neutrophil abs 5.80 1.50 - 6.50 K/cumm Imm gran abs 0.44(H) 0.00 - 0.10 K/cumm [facility] Lymphocyte abs 0.78(L) 0.80 - 3.30 K/cumm [facility] Monocyte abs 0.76 0.20 - 0.80 K/cumm [facility] Eosinophil abs 0.23 0.00 - 0.50 K/cumm [facility] Basophil abs 0.03 0.00 - 0.10 K/cumm [facility] Neutrophil pct 72.0 % [facility] Comment: Interpretive Data Percent cell count reference ranges are not reported, since discordance with absolute values may lead to misinterpretation of CBC data. Current Interpretive Data was last revised on 2017. Imm gran pct 5.5 % [facility] Comment: Interpretive Data Percent cell count reference ranges are not reported, since discordance with absolute values may lead to misinterpretation of CBC data. Current Interpretive Data was last revised on 2017. Lymphocyte pct 9.7 % [facility] Comment: Interpretive Data Percent cell count reference ranges are not reported, since discordance with absolute values may lead to misinterpretation of CBC data. Current Interpretive Data was last revised on 2017. Monocyte pct 9.5 % [facility] Comment: Interpretive Data Percent cell count reference ranges are not reported, since discordance with absolute values may lead to misinterpretation of CBC data. Current Interpretive Data was last revised on 2017. Eosinophil pct 2.9 % [facility] Comment: Interpretive Data Percent cell count reference ranges are not reported, since discordance with absolute values may lead to misinterpretation of CBC data. Current Interpretive Data was last revised on 2017. Basophil pct 0.4 % [facility] Comment: Interpretive Data Percent cell count reference ranges are not reported, since discordance with absolute values may lead to misinterpretation of CBC data. Current Interpretive Data was last revised on 2017. Blood 01/08/2025 8:11 PM CDT 01/08/2025 8:28 PM CDT Rosa Beltran NP LAB BLOOD ORDERABLES Final Re sult [facility] Department [place] [address] * (ABNORMAL) CBC with auto differential (01/08/2025 8:11 PM CDT) WBC 8.04 3.80 - 9.90 K/cumm Hgb 8.6(L) 13.0 - 17.5 g/dL [facility] Hct 26.2(L) 38.9 - 50.3 % [facility] Plt 325 150 - 400 K/cumm [facility] MPV 9.2 9.1 - 12.3 fL [facility] RBC 2.57(L) 4.30 - 5.80 M/cumm [facility] MCV 101.9(H) 81.3 - 96.4 fL [facility] MCH 33.5(H) 27.1 - 33.3 pg [facility] MCHC 32.8 32.3 - 35.7 g/dL [facility] RDW CV 15.0(H) 11.1 - 14.9 % [facility] RDW SD 56.0(H) 35.7 - 48.1 fL [facility] NRBC abs 0.03(H) 0.00 - 0.01 K/cumm [facility] Blood 01/08/2025 8:11 PM CDT 01/08/2025 8:28 PM CDT Rosa Beltran LAB BLOOD ORDERABLES Final Re sult Performing Organization Address [facility] [place] [address] * Type and screen (01/08/2025 8:11 PM CDT) Becca, indirect Negative ABO Rh A Positive [facility] Blood 01/08/2025 8:11 PM CDT 01/08/2025 8:34 PM CDT Narrative [facility] - 01/08/2025 9:31 PM CDT Has the patient had Daratumumab or Isatuximab in the past 6 months?->Unknown [facility] B[facility] B[facility] TEST ORDERABLE S Final Result Performing Organization Address [facility] de Phone Number [facility] Department [place] [address] * (ABNORMAL) Phosphorus (01/08/2025 8:11 PM CDT) Phosphorus, pl 4.6(H) 2.3 - 4.5 mg/dL Blood 01/08/2025 8:11 PM CDT 01/08/2025 8:26 PM CDT [facility] LAB BLOOD ORDERABLES Final Re sult Performing Organization Address [facility] de Phone Number [facility] Department [place] [address] * Magnesium (01/08/2025 8:11 PM CDT) [facility] Magnesium 2.1 1.4 - 2.5 mg/dL Blood 01/08/2025 8:11 PM CDT 01/08/2025 8:26 PM CDT Rosa Beltran NP LAB BLOOD ORDERABLES Final Re sult [facility] [place] [address] * (ABNORMAL) Hepatic function panel (01/08/2025 8:11 PM CDT) [facility] Bilirubin, total 0.5 0.1 - 1.2 mg/dL Bilirubin, direct 0.2 0.1 - 0.3 mg/dL [facility] Protein, pl 6.5 6.5 - 8.5 g/dL [facility] Albumin 3.2(L) 3.5 - 5.0 g/dL [facility] Alk phos 54 40 - 130 Units/L [facility] ALT 73(H) 7 - 55 Units/L [facility] AST 52(H) 10 - 50 Units/L [facility] Blood 01/08/2025 8:11 PM CDT 01/08/2025 8:26 PM CDT Parth Dalton MD LAB BLOOD ORDERABLES Final Re sult [facility] Department [place] [address] * (ABNORMAL) Basic metabolic panel (01/08/2025 8:11 PM CDT) Pathologist [facility] Sodium 150(H) 135 - 145 mmol/L Potassium, pl 4.3 3.3 - 4.9 mmol/L [facility] Chloride 111(H) 97 - 110 mmol/L [facility] CO2 27 22 - 32 mmol/L [facility] Anion gap 12 2 - 15 mmol/L [facility] BUN 52(H) 6 - 25 mg/dL [facility] Creatinine 1.55(H) 0.80 - 1.30 mg/dL [facility] Glucose 97 70 - 199 mg/dL [facility] Comment: Interpretive Data Fasting glucose >/= 126 mg/dl is diagnostic for diabetes. Fasting is defined as no caloric intake for at least 8 hours. Fasting glucose between 100 mg/dl to 125 mg/dl is diagnostic of prediabetes. In a patient with classic symptoms of hyperglycemia or hyperglycemic crisis, a random glucose >/= 200 mg/dl is diagnostic for diabetes. In the absence of unequivocal hyperglycemia, results should be confirmed by repeat testing. The classification and Diagnosis of Diabetes Diabetes Care 2021; 46: S19-S40. Current interpretive data was last revised 2022. Calcium 9.7 8.5 - 10.3 mg/dL [facility] Blood 01/08/2025 8:11 PM CDT 01/08/2025 8:26 PM CDT us Rosa Beltran NP LAB BLOOD ORDERABLES Final Re sult [facility] Department [place] [address] * POCT glucose (01/08/2025 4:11 PM CDT) [facility] Glucose, POC 124 70 - 199 mg/dL Blood 01/08/2025 4:11 PM CDT 01/08/2025 4:11 PM CDT Parth Dalton MD LAB POCT ORDERABLES - DEVICE Final Result [facility] Department [place] [address] * XR Chest 1 View (01/08/2025 1:18 PM CDT) Anatomical Region Laterality Modality Body, Chest N/A Computed Radiogr aphy 01/08/2025 2:4 5 PM CDT Addenda Addendum by Mikey Bender MD on 01/08/2025 3:17 PM CDT A right upper extremity PICC is present. The tip is obscured due to overlying EKG leads. The course appears appropriate. Electronically signed by: Mikey Bender M.D. Impressions 01/08/2025 3:12 PM CDT The current study is compared with the prior radiograph dated 01/07/2025. Tracheostomy tube is in place. Median sternotomy plates are present. A feeding tube extends below the level of the hemidiaphragm. Right internal jugular central venous catheter tip projects over the superior vena cava. Left atrial appendage clip is present. Left chest tube is present. Collapse of the left lower lobe. No definite pleural effusion. No pneumothorax. Cardiomediastinal silhouette is unchanged. Dictated by: Jacob Beth M.D. The radiology attending physician has personally reviewed this study, and had reviewed and/or edited this written report and agrees with it. Electronically signed by: Mikey Bender M.D. Narrative 01/08/2025 3:12 PM CDT EXAMINATION: 1 view chest radiograph Procedure Note Mikey Bender MD - 01/08/2025 EXAMINATION: 1 view chest radiograph IMPRESSION: The current study is compared with the prior radiograph dated 01/07/2025. Tracheostomy tube is in place. Median sternotomy plates are present. A feeding tube extends below the level of the hemidiaphragm. Right internal jugular central venous catheter tip projects over the superior vena cava. Left atrial appendage clip is present. Left chest tube is present. Collapse of the left lower lobe. No definite pleural effusion. No pneumothorax. Cardiomediastinal silhouette is unchanged. Dictated by: Jacob Beth M.D. The radiology attending physician has personally reviewed this study, and had reviewed and/or edited this written report and agrees with it. Electronically signed by: Mikey Bender M.D. Gloria Ledezma FIELD CONSULTANT IMG XR PROCEDURES Edit ed Result - Final * POCT glucose (01/08/2025 11:59 AM CDT) Glucose, POC 120 70 - 199 mg/dL Blood 01/08/2025 11:5 9 AM CDT 01/08/2025 11:59 AM CDT Parth Dalton MD LAB POCT ORDERABLES - DEVICE Final Result Performing Organization Address City/[facility] Co de Phone Number [facility] [place] [address] * POCT glucose (01/08/2025 7:34 AM CDT) Glucose, POC 75 70 - 199 mg/dL Blood 01/08/2025 7:34 AM CDT 01/08/2025 7:34 AM CDT Parth Dalton MD LAB POCT ORDERABLES - DEVICE Final Result Performing Organization Address City/[facility] Co de Phone Number [facility] [place] [address] * POCT glucose (01/08/2025 4:18 AM CDT) Glucose, POC 95 70 - 199 mg/dL Blood 01/08/2025 4:18 AM CDT 01/08/2025 4:18 AM CDT Parth Dalton MD LAB POCT ORDERABLES - DEVICE Final Result Performing Organization Address City/[facility] Co de Phone Number [facility] [place] [address] * POCT glucose (01/07/2025 11:30 PM CDT) Glucose, POC 94 70 - 199 mg/dL Blood 01/07/2025 11:3 0 PM CDT 01/07/2025 11:30 PM CDT Parth Dalton MD LAB POCT ORDERABLES - DEVICE Final Result Performing Organization Address [facility] Co de Phone Number CYNTHIA [facility] Department [place] [address] * (ABNORMAL) eGFR (01/07/2025 8:57 PM CDT) eGFR 43(L) >=60 mL/min/1. 73 m2 Comment: Interpretive Data Reference Interval Normal >/= 90 mL/min/1.73m2 Mildly decreased* 60 - 89 mL/min/1.73m2 Mildly to moderately decreased 45 - 59 mL/min/1.73m2 Moderately to severely decreased 30 - 44 mL/min/1.73m2 Severely decreased 15 - 29 mL/min/1.73m2 Kidney Failure < 15 mL/min/1.73m2 *Relative to young adult level Estimated glomerular filtration rate is determined by the 2020 CKD-EPI equation recommended by the National Kidney Foundation (A Unifying Approach to GFR Estimation: Recommendations of the NKF-ASK Task Force on Reassessing the Inclusion of Race in Diagnosing Kidney Disease, JASN 2020). The CKD-EPI equation should not be used for patients with unstable renal function and has not been validated in children and those over 70. Current interpretive data was last reviewed 2021. Blood 01/07/2025 8:57 PM CDT 01/07/2025 9:37 PM CDT us Rosa Beltran NP LAB BLOOD ORDERABLES Final Re sult Performing Organization Address City/[facility]/ZIP Co de Phone Number [facility] Department [place] [address] * (ABNORMAL) Differential, auto (01/07/2025 8:57 PM CDT) Neutrophil abs 6.34 1.50 - 6.50 K/cumm Imm gran abs 0.46(H) 0.00 - 0.10 K/cumm [facility] Lymphocyte abs 0.85 0.80 - 3.30 K/cumm [facility] Monocyte abs 0.59 0.20 - 0.80 K/cumm [facility] Eosinophil abs 0.21 0.00 - 0.50 K/cumm [facility] Basophil abs 0.04 0.00 - 0.10 K/cumm [facility] Neutrophil pct 74.7 % [facility] Comment: Interpretive Data Percent cell count reference ranges are not reported, since discordance with absolute values may lead to misinterpretation of CBC data. Current Interpretive Data was last revised on 2017. Imm gran pct 5.4 % [facility] Comment: Interpretive Data Percent cell count reference ranges are not reported, since discordance with absolute values may lead to misinterpretation of CBC data. Current Interpretive Data was last revised on 2017. Lymphocyte pct 10.0 % [facility] Comment: Interpretive Data Percent cell count reference ranges are not reported, since discordance with absolute values may lead to misinterpretation of CBC data. Current Interpretive Data was last revised on 2017. Monocyte pct 6.9 % [facility] Comment: Interpretive Data Percent cell count reference ranges are not reported, since discordance with absolute values may lead to misinterpretation of CBC data. Current Interpretive Data was last revised on 2017. Eosinophil pct 2.5 % [facility] Comment: Interpretive Data Percent cell count reference ranges are not reported, since discordance with absolute values may lead to misinterpretation of CBC data. Current Interpretive Data was last revised on 2017. Basophil pct 0.5 % [facility] Comment: Interpretive Data Percent cell count reference ranges are not reported, since discordance with absolute values may lead to misinterpretation of CBC data. Current Interpretive Data was last revised on 2017. Blood 01/07/2025 8:57 PM CDT 01/07/2025 9:37 PM CDT Rosa Beltran NP LAB BLOOD ORDERABLES Final Re sult [facility] Department [place] [address] * (ABNORMAL) CBC with auto differential (01/07/2025 8:57 PM CDT) Pathologist [facility] WBC 8.49 3.80 - 9.90 K/cumm Hgb 9.2(L) 13.0 - 17.5 g/dL [facility] Hct 27.9(L) 38.9 - 50.3 % [facility] Plt 345 150 - 400 K/cumm [facility] MPV 9.5 9.1 - 12.3 fL [facility] RBC 2.71(L) 4.30 - 5.80 M/cumm [facility] MCV 103.0(H) 81.3 - 96.4 fL [facility] MCH 33.9(H) 27.1 - 33.3 pg [facility] MCHC 33.0 32.3 - 35.7 g/dL [facility] RDW CV 15.3(H) 11.1 - 14.9 % [facility] RDW SD 56.9(H) 35.7 - 48.1 fL [facility] NRBC abs 0.04(H) 0.00 - 0.01 K/cumm [facility] Blood 01/07/2025 8:57 PM CDT 01/07/2025 9:37 PM CDT Rosa Beltran NP LAB BLOOD ORDERABLES Final Re sult [facility] Department [place] [address] * (ABNORMAL) Phosphorus (01/07/2025 8:57 PM CDT) Pathologist [facility] Phosphorus, pl 4.7(H) 2.3 - 4.5 mg/dL Blood 01/07/2025 8:57 PM CDT 01/07/2025 9:37 PM CDT Rosa Beltran LAB BLOOD ORDERABLES Final Re sult [facility] Department [place] [address] * Magnesium (01/07/2025 8:57 PM CDT) Pathologist [facility] Magnesium 2.2 1.4 - 2.5 mg/dL Blood 01/07/2025 8:57 PM CDT 01/07/2025 9:37 PM CDT [facility] BLOOD ORDERABLES Final Re sult Performing Organization Address [facility] de Phone Number [facility] Department [place] [address] * (ABNORMAL) Basic metabolic panel (01/07/2025 8:57 PM CDT) [facility] Sodium 146(H) 135 - 145 mmol/L Potassium, pl 3.9 3.3 - 4.9 mmol/L [facility] Chloride 109 97 - 110 mmol/L [facility] CO2 26 22 - 32 mmol/L [facility] Anion gap 11 2 - 15 mmol/L [facility] BUN 56(H) 6 - 25 mg/dL [facility] Creatinine 1.67(H) 0.80 - 1.30 mg/dL [facility] Glucose 120 70 - 199 mg/dL [facility] Comment: Interpretive Data Fasting glucose >/= 126 mg/dl is diagnostic for diabetes. Fasting is defined as no caloric intake for at least 8 hours. Fasting glucose between 100 mg/dl to 125 mg/dl is diagnostic of prediabetes. In a patient with classic symptoms of hyperglycemia or hyperglycemic crisis, a random glucose >/= 200 mg/dl is diagnostic for diabetes. In the absence of unequivocal hyperglycemia, results should be confirmed by repeat testing. The classification and Diagnosis of Diabetes Diabetes Care 2021; 46: S19-S40. Current interpretive data was last revised 2022. Calcium 9.8 8.5 - 10.3 mg/dL [facility] Blood 01/07/2025 8:57 PM CDT 01/07/2025 9:37 PM CDT Rosa Beltran NP LAB BLOOD ORDERABLES Final Re sult Performing Organization Address [facility] de Phone Number [facility] [place] [address] * POCT glucose (01/07/2025 8:56 PM CDT) Glucose, POC 117 70 - 199 mg/dL Blood 01/07/2025 8:56 PM CDT 01/07/2025 8:56 PM CDT Parth Dalton MD LAB POCT ORDERABLES - DEVICE Final Result Performing Organization Address [facility] de Phone Number [facility] Department [place] [address] * POCT glucose (01/07/2025 7:47 PM CDT) Glucose, POC 96 70 - 199 mg/dL Blood 01/07/2025 7:47 PM CDT 01/07/2025 7:47 PM CDT Parth Dalton MD LAB POCT ORDERABLES - DEVICE Final Result Performing Organization Address [facility] de Phone Number [facility] [place] [address] * POCT glucose (01/07/2025 4:21 PM CDT) Glucose, POC 127 70 - 199 mg/dL Blood 01/07/2025 4:21 PM CDT 01/07/2025 4:21 PM CDT Parth Dalton MD LAB POCT ORDERABLES - DEVICE Final Result CYNTHIA [facility] Department [place] [address] * XR Abdomen Ap 1 Vw (01/07/2025 2:35 PM CDT) Anatomical Region Laterality Modality Body, Abdomen N/A Computed Radiogr aphy 01/07/2025 3:04 PM CDT Impressions 01/07/2025 3:30 PM CDT Feeding tube tip overlying the 2nd/3rd part of the duodenum. Mildly distended loops of bowel which may represent ileus. Partially imaged sternal plate. Left chest tube is in place. Epicardial pacing wires overlying the abdomen. Dictated by: Robby Sanabria M.D. The radiology attending physician has personally reviewed this study, and had reviewed and/or edited this written report and agrees with it. Electronically signed by: Vani Sarmiento M.D. Narrative 01/07/2025 3:30 PM CDT EXAMINATION: Abdomen, one view. 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 COMPARISON: Abdominal radiograph the 01/06/2025. Procedure Note Vani Sarmiento MD - 01/07/2025 EXAMINATION: Abdomen, one view. 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 COMPARISON: Abdominal radiograph the 01/06/2025. IMPRESSION: Feeding tube tip overlying the 2nd/3rd part of the duodenum. Mildly distended loops of bowel which may represent ileus. Partially imaged sternal plate. Left chest tube is in place. Epicardial pacing wires overlying the abdomen. Dictated by: Robby Sanabria M.D. The radiology attending physician has personally reviewed this study, and had reviewed and/or edited this written report and agrees with it. Electronically signed by: Vani Sarmiento M.D. Gloria Ledezma FIELD CONSULTANT IMG XR PROCEDURES Raquel l Result * Infection Prevention Blanche auris PCR, surveillance Axilla/Groin (01/07/2025 2:25 PM CDT) [facility] Blanche auris DNA Not Detected Not Detected [facility] Comment: Interpretive Data Testing performed by [facility] using the Daquan flaquita 6800 Blanche auris assay. This assay detects DNA from Blanche auris using Real-Time PCR. This assay is laboratory developed and is not cleared by the [facility] Food and Drug Administration. The performance characteristics have been verified by the [facility]. Axilla/Groin 01/07/2025 2:25 PM CDT 01/07/2025 2:45 PM CDT Narrative [facility] - 01/07/2025 10:52 PM CDT Order placed by OPA due to ring surveillance. Instant Order Generic Provider LAB MICROBIOLOGY - GENERAL ORDERABLES Final Result [facility] Department [place] [address] [facility] * Potassium, whole blood (01/07/2025 2:25 PM CDT) [facility] Potassium, bld 4.3 3.3 - 4.9 mmol/L Blood 01/07/2025 2:25 PM CDT 01/07/2025 2:44 PM CDT Jyotsna Salazar FIELD CONSULTANT LAB BLOOD ORDERABLES Final Result [facility] Department [place] [address] * POCT glucose (01/07/2025 12:03 PM CDT) [facility] Glucose, POC 131 70 - 199 mg/dL Blood 01/07/2025 12:0 3 PM CDT 01/07/2025 12:03 PM CDT us Parth Dalton MD LAB POCT ORDERABLES - DEVICE Final Result [facility] Department [place] [address] * POCT glucose (01/07/2025 7:34 AM CDT) Glucose, POC 147 70 - 199 mg/dL Blood 01/07/2025 7:34 AM CDT 01/07/2025 7:34 AM CDT Parth Dalton MD LAB POCT ORDERABLES - DEVICE Final Result Performing Organization Address [facility] Co de Phone Number [facility] Department [place] [address] * Blood culture Blood (01/07/2025 5:04 AM CDT) Report Final Report: No growth Blood 01/07/2025 5:04 AM CDT 01/07/2025 5:50 AM CDT Narrative [facility] - 01/11/2025 7:00 AM CDT Collection->Peripheral 1. Blood cultures are incubated for 4 days on a continuously monitored blood culture system. The first report of a negative culture is issued within 24 hours of receipt of the specimen in the laboratory. 2. Positive culture results are reported as soon as they are detected. 3. The most important factor for detection of microbes in the setting of bloodstream infection is the volume of blood submitted for culture. Failure to collect an optimal blood volume can result in false negative blood cultures. 4. For pediatric patients, the recommended blood volume to collect follows a weight based strategy. See the electronic test catalog for collection instructions. 5. For positive blood cultures, a rapid molecular test may be performed for organism identification using the flaquita ePlex blood culture identification panel for gram positive (BCID-GP) and gram negative (BCID-GN) organisms. This nucleic acid amplification test detects microbial DNA in positive blood culture broth. This assay has been cleared by the [place] Food and Drug Administration and its performance characteristics have been verified by the [facility]. For questions about this culture, contact the Microbiology Laboratory at [phone]. Interpretive data was last revised on 24. Rosa Beltran NP LAB MICROBIOLOGY - GENERAL OR DERABLES Final Result Performing Organization Address City/[facility]/ZIP Co de Phone Number [facility] Department [place] [address] * POCT glucose (01/07/2025 4:41 AM CDT) [facility] Signature Glucose, POC 117 70 - 199 mg/dL Blood 01/07/2025 4:41 AM CDT 01/07/2025 4:41 AM CDT Parth Dalton MD LAB POCT ORDERABLES - DEVICE Final Result Performing Organization Address City/[facility] Co de Phone Number [facility] Department [place] [address] * XR Chest 1 View (01/07/2025 4:32 AM CDT) Anatomical Region Laterality Modality Body, Chest N/A Computed Radiogr aphy 01/07/2025 9:26 AM CDT Impressions 01/07/2025 9:28 AM CDT FIRST EXAM Comparison is made with multiple prior exams, most recently radiograph dated 01/04/2025. Tracheostomy remains in place. Right internal jugular approach central venous catheter terminates in the superior vena cava. Left atrial appendage clip in place. Stable left-sided chest tube. Patient is status post median sternotomy with sternal plates and screws. Bibasilar atelectasis, left greater than right. Small left hydropneumothorax. No right pneumothorax or pleural effusion. The heart and mediastinal contours are stable. SECOND EXAM There is no interval change Dictated by: Jane Rose M.D. The radiology attending physician has personally reviewed this study, and had reviewed and/or edited this written report and agrees with it. Electronically signed by: Meghan Rios M.D. Narrative 01/07/2025 9:28 AM CDT EXAMINATION: 2 PORTABLE CHESTS CHEST ONE VIEW PORTABLE CHEST ONE VIEW PORTABLE Procedure Note Meghan Rios MD - 01/07/2025 EXAMINATION: 2 PORTABLE CHESTS CHEST ONE VIEW PORTABLE CHEST ONE VIEW PORTABLE IMPRESSION: FIRST EXAM Comparison is made with multiple prior exams, most recently radiograph dated 01/04/2025. Tracheostomy remains in place. Right internal jugular approach central venous catheter terminates in the superior vena cava. Left atrial appendage clip in place. Stable left-sided chest tube. Patient is status post median sternotomy with sternal plates and screws. Bibasilar atelectasis, left greater than right. Small left hydropneumothorax. No right pneumothorax or pleural effusion. The heart and mediastinal contours are stable. SECOND EXAM There is no interval change Dictated by: Jane Rose M.D. The radiology attending physician has personally reviewed this study, and had reviewed and/or edited this written report and agrees with it. Electronically signed by: Meghan Rios M.D. Rosa Beltran NP IMG XR PROCEDURES Final Resul t * (ABNORMAL) Aerobic culture and gram stain Tracheal aspirate Tracheal (01/06/2025 11:41 PM CDT) Direct Specimen Exam Stain: Rare polymorphonuclear leukocytes seen. Few squamous epithelial cells seen. Few mixed bacterial katja seen on Gram stain. Report Final Report: Greater than or equal to 100,000 colonies/ml of Stenotrophomonas maltophilia Plus growth of clinically insignificant bacterial katja. (.) [facility] Organism STENOTROPHOMONAS MALTOPHILIA [facility] Organism PLUS GROWTH OF CLINICALLY INSIGNIFICANT KATJA. [facility]IA [facility] Tracheal aspirate (Tracheal) 01/06/2025 11:41 PM CDT 01/07/2025 1:31 AM CDT Narrative [facility] - 01/09/2025 2:45 PM CDT Testing performed by [facility] ([phone]) Specimens submitted from normally sterile body sites will have all bacterial morphotypes identified. Specimens that contain grossly mixed katja and/or are from body sites that are not normally sterile will be examined for Staphylococcus aureus, Pseudomonas aeruginosa, beta-hemolytic strep, vancomycin-resistant Enterococcus and fungus. If any of these are isolated, the organism will be reported. Current interpretive data was last revised on 2016. Organism Antibiotic Method Susceptibility Stenotrophomonas maltophilia Trimethopri m with Sulfamethoxazole INTERPRETATION Susceptible Stenotrophomonas maltophilia Minocycline INTERPRETATI ON Susceptible Stenotrophomonas maltophilia Levofloxacin INTERPRETATI ON Susceptible Rosa Beltran NP LAB MICROBIOLOGY - GENERAL OR DERABLES Final Result Performing Organization Address [facility] Co de Phone Number [facility] [place] [address] * Lactate, whole blood (01/06/2025 11:41 PM CDT) Lactate, bld 0.9 0.7 - 2.0 mmol/L Blood 01/06/2025 11:4 1 PM CDT 01/06/2025 11:49 PM CDT Rosa Beltran NP LAB BLOOD ORDERABLES Final Re sult Performing Organization Address [facility] Co de Phone Number [facility] Department [place] [address] * POCT glucose (01/06/2025 11:39 PM CDT) Glucose, POC 104 70 - 199 mg/dL Blood 01/06/2025 11:3 9 PM CDT 01/06/2025 11:39 PM CDT Parth Dalton MD LAB POCT ORDERABLES - DEVICE Final Result Performing Organization Address [facility] Co de Phone Number [facility] [place] [address] * POCT glucose (01/06/2025 9:12 PM CDT) Glucose, POC 104 70 - 199 mg/dL Blood 01/06/2025 9:12 PM CDT 01/06/2025 9:12 PM CDT Parth Dalton MD LAB POCT ORDERABLES - DEVICE Final Result Performing Organization Address [facility]/ZIP Co de Phone Number [facility] Department [place] [address] * (ABNORMAL) eGFR (01/06/2025 9:07 PM CDT) Pathologist [facility] eGFR 41(L) >=60 mL/min/1. 73 m2 Comment: Interpretive Data Reference Interval Normal >/= 90 mL/min/1.73m2 Mildly decreased* 60 - 89 mL/min/1.73m2 Mildly to moderately decreased 45 - 59 mL/min/1.73m2 Moderately to severely decreased 30 - 44 mL/min/1.73m2 Severely decreased 15 - 29 mL/min/1.73m2 Kidney Failure < 15 mL/min/1.73m2 *Relative to young adult level Estimated glomerular filtration rate is determined by the 2020 CKD-EPI equation recommended by the National Kidney Foundation (A Unifying Approach to GFR Estimation: Recommendations of the NKF-ASK Task Force on Reassessing the Inclusion of Race in Diagnosing Kidney Disease, JASN 2020). The CKD-EPI equation should not be used for patients with unstable renal function and has not been validated in children and those over 70. Current interpretive data was last reviewed 2021. Blood 01/06/2025 9:07 PM CDT 01/06/2025 9:48 PM CDT Rosa Beltran NP LAB BLOOD ORDERABLES Final Re sult Performing Organization Address City/[facility]/ZIP [facility] de Phone Number [facility] [place] [address] * (ABNORMAL) Differential, auto (01/06/2025 9:07 PM CDT) Neutrophil abs 4.73 1.50 - 6.50 K/cumm Imm gran abs 0.29(H) 0.00 - 0.10 K/cumm [facility] Lymphocyte abs 0.54(L) 0.80 - 3.30 K/cumm [facility] Monocyte abs 0.43 0.20 - 0.80 K/cumm [facility] Eosinophil abs 0.15 0.00 - 0.50 K/cumm [facility] Basophil abs 0.04 0.00 - 0.10 K/cumm [facility] Neutrophil pct 76.6 % [facility] Comment: Interpretive Data Percent cell count reference ranges are not reported, since discordance with absolute values may lead to misinterpretation of CBC data. Current Interpretive Data was last revised on 2017. Imm gran pct 4.7 % [facility] Comment: Interpretive Data Percent cell count reference ranges are not reported, since discordance with absolute values may lead to misinterpretation of CBC data. Current Interpretive Data was last revised on 2017. Lymphocyte pct 8.7 % [facility] Comment: Interpretive Data Percent cell count reference ranges are not reported, since discordance with absolute values may lead to misinterpretation of CBC data. Current Interpretive Data was last revised on 2017. Monocyte pct 7.0 % [facility] Comment: Interpretive Data Percent cell count reference ranges are not reported, since discordance with absolute values may lead to misinterpretation of CBC data. Current Interpretive Data was last revised on 2017. Eosinophil pct 2.4 % [facility] Comment: Interpretive Data Percent cell count reference ranges are not reported, since discordance with absolute values may lead to misinterpretation of CBC data. Current Interpretive Data was last revised on 2017. Basophil pct 0.6 % [facility] Comment: Interpretive Data Percent cell count reference ranges are not reported, since discordance with absolute values may lead to misinterpretation of CBC data. Current Interpretive Data was last revised on 2017. Blood 01/06/2025 9:07 PM CDT 01/06/2025 9:49 PM CDT Rosa Beltran NP LAB BLOOD ORDERABLES Final Re sult Performing Organization Address City/[facility]/ZIP Co de Phone Number [facility] Department [place] [address] * (ABNORMAL) CBC with auto differential (01/06/2025 9:07 PM CDT) Pathologist [facility] WBC 6.18 3.80 - 9.90 K/cumm Hgb 11.3(L) 13.0 - 17.5 g/dL [facility] Hct 34.3(L) 38.9 - 50.3 % [facility] Plt 278 150 - 400 K/cumm [facility] MPV 9.4 9.1 - 12.3 fL [facility] RBC 3.38(L) 4.30 - 5.80 M/cumm [facility] MCV 101.5(H) 81.3 - 96.4 fL [facility] MCH 33.4(H) 27.1 - 33.3 pg [facility] MCHC 32.9 32.3 - 35.7 g/dL [facility] RDW CV 15.1(H) 11.1 - 14.9 % [facility] RDW SD 57.0(H) 35.7 - 48.1 fL [facility] NRBC abs 0.05(H) 0.00 - 0.01 K/cumm [facility] Blood 01/06/2025 9:07 PM CDT 01/06/2025 9:49 PM CDT Rosa Beltran NP LAB BLOOD ORDERABLES Final Re sult [facility] Department [place] [address] * Phosphorus (01/06/2025 9:07 PM CDT) Phosphorus, pl 3.9 2.3 - 4.5 mg/dL Blood 01/06/2025 9:07 PM CDT 01/06/2025 9:48 PM CDT Rosa Beltran LAB BLOOD ORDERABLES Final Re sult [facility] Department [place] [address] * Magnesium (01/06/2025 9:07 PM CDT) [facility] Magnesium 2.5 1.4 - 2.5 mg/dL Blood 01/06/2025 9:07 PM CDT 01/06/2025 9:48 PM CDT Rosa Beltran LAB BLOOD ORDERABLES Final Re sult Performing Organization Address [facility] Co de Phone Number [facility] [place] [address] * (ABNORMAL) Basic metabolic panel (01/06/2025 9:07 PM CDT) [facility] Sodium 144 135 - 145 mmol/L Potassium, pl 4.5 3.3 - 4.9 mmol/L [facility] Chloride 111(H) 97 - 110 mmol/L [facility] CO2 24 22 - 32 mmol/L [facility] Anion gap 9 2 - 15 mmol/L [facility] BUN 56(H) 6 - 25 mg/dL [facility] Creatinine 1.71(H) 0.80 - 1.30 mg/dL [facility] Glucose 104 70 - 199 mg/dL [facility] Comment: Interpretive Data Fasting glucose >/= 126 mg/dl is diagnostic for diabetes. Fasting is defined as no caloric intake for at least 8 hours. Fasting glucose between 100 mg/dl to 125 mg/dl is diagnostic of prediabetes. In a patient with classic symptoms of hyperglycemia or hyperglycemic crisis, a random glucose >/= 200 mg/dl is diagnostic for diabetes. In the absence of unequivocal hyperglycemia, results should be confirmed by repeat testing. The classification and Diagnosis of Diabetes Diabetes Care 202; 46: S19-S40. Current interpretive data was last revised 2022. Calcium 9.4 8.5 - 10.3 mg/dL [facility] Blood 01/06/2025 9:07 PM CDT 01/06/2025 9:48 PM CDT Rosa Beltran NP LAB BLOOD ORDERABLES Final Re sult Performing Organization Address City/[facility]/ZIP Co de Phone Number [facility] [place] [address] * POCT glucose (01/06/2025 4:12 PM CDT) Glucose, POC 94 70 - 199 mg/dL Blood 01/06/2025 4:12 PM CDT 01/06/2025 4:12 PM CDT Parth Dalton MD LAB POCT ORDERABLES - DEVICE Final Result Performing Organization Address [facility] Co de Phone Number [facility] [place] [address] * POCT glucose (01/06/2025 12:07 PM CDT) Glucose, POC 89 70 - 199 mg/dL Blood 01/06/2025 12:0 7 PM CDT 01/06/2025 12:07 PM CDT Parth Dalton MD LAB POCT ORDERABLES - DEVICE Final Result Performing Organization Address City/[facility] Co de Phone Number [facility] [place] [address] * XR Chest 1 View (01/06/2025 8:25 AM CDT) Anatomical Region Laterality Modality Body, Chest N/A Digital Radiogra phy 01/07/2025 9:26 AM CDT Impressions 01/07/2025 9:28 AM CDT FIRST EXAM Comparison is made with multiple prior exams, most recently radiograph dated 01/04/2025. Tracheostomy remains in place. Right internal jugular approach central venous catheter terminates in the superior vena cava. Left atrial appendage clip in place. Stable left-sided chest tube. Patient is status post median sternotomy with sternal plates and screws. Bibasilar atelectasis, left greater than right. Small left hydropneumothorax. No right pneumothorax or pleural effusion. The heart and mediastinal contours are stable. SECOND EXAM There is no interval change Dictated by: Jane Rose M.D. The radiology attending physician has personally reviewed this study, and had reviewed and/or edited this written report and agrees with it. Electronically signed by: Meghan Rios M.D. Narrative 01/07/2025 9:28 AM CDT EXAMINATION: 2 PORTABLE CHESTS CHEST ONE VIEW PORTABLE CHEST ONE VIEW PORTABLE Procedure Note Meghan Rios MD - 01/07/2025 EXAMINATION: 2 PORTABLE CHESTS CHEST ONE VIEW PORTABLE CHEST ONE VIEW PORTABLE IMPRESSION: FIRST EXAM Comparison is made with multiple prior exams, most recently radiograph dated 01/04/2025. Tracheostomy remains in place. Right internal jugular approach central venous catheter terminates in the superior vena cava. Left atrial appendage clip in place. Stable left-sided chest tube. Patient is status post median sternotomy with sternal plates and screws. Bibasilar atelectasis, left greater than right. Small left hydropneumothorax. No right pneumothorax or pleural effusion. The heart and mediastinal contours are stable. SECOND EXAM There is no interval change Dictated by: Jane Rose M.D. The radiology attending physician has personally reviewed this study, and had reviewed and/or edited this written report and agrees with it. Electronically signed by: Meghan Rios M.D. Rosa Beltran NP IMG XR PROCEDURES Final Resul t * XR Abdomen Ap 1 Vw (01/06/2025 8:25 AM CDT) Anatomical Region Laterality Modality Body, Abdomen N/A Digital Radiogra phy 01/07/2025 8:19 AM CDT Impressions 01/07/2025 8:22 AM CDT Normal bowel gas pattern. Gastric tube is coiled in the antrum with tip in the gastric body. Partially imaged sternal plate. Epicardial pacing wires project over the mid abdomen. Temperature Goldtsein catheter projecting over the bladder. Mediastinal/pericardial drain projects across the body. Vascular calcifications. Dictated by: Silvio Palafox M.D. The radiology attending physician has personally reviewed this study, and had reviewed and/or edited this written report and agrees with it. Electronically signed by: Keesha Parra M.D. Narrative 01/07/2025 8:22 AM CDT EXAMINATION: Abdomen, one view. HISTORY: Nausea COMPARISON: Abdominal radiograph from 12/31/2024 Procedure Note Keesha Parra MD - 01/07/2025 EXAMINATION: Abdomen, one view. HISTORY: Nausea COMPARISON: Abdominal radiograph from 12/31/2024 IMPRESSION: Normal bowel gas pattern. Gastric tube is coiled in the antrum with tip in the gastric body. Partially imaged sternal plate. Epicardial pacing wires project over the mid abdomen. Temperature Goldstein catheter projecting over the bladder. Mediastinal/pericardial drain projects across the body. Vascular calcifications. Dictated by: Silvio Palafox M.D. The radiology attending physician has personally reviewed this study, and had reviewed and/or edited this written report and agrees with it. Electronically signed by: Keesha Parra M.D. Marci Rater FIELD CONSULTANT IMG XR PROCEDURES Final Result * POCT glucose (01/06/2025 7:56 AM CDT) Glucose, POC 90 70 - 199 mg/dL Blood 01/06/2025 7:56 AM CDT 01/06/2025 7:56 AM CDT Parth Dalton MD LAB POCT ORDERABLES - DEVICE Final Result [facility] [place] [address] * POCT glucose (01/06/2025 1:39 AM CDT) Pathologist [facility] Glucose, POC 97 70 - 199 mg/dL Blood 01/06/2025 1:39 AM CDT 01/06/2025 1:39 AM CDT Parth Dalton MD LAB POCT ORDERABLES - DEVICE Final Result Performing Organization Address [facility] Co de Phone Number [facility] Department [place] [address] * (ABNORMAL) eGFR (01/05/2025 10:01 PM CDT) [facility] eGFR 31(L) >=60 mL/min/1. 73 m2 Comment: Interpretive Data Reference Interval Normal >/= 90 mL/min/1.73m2 Mildly decreased* 60 - 89 mL/min/1.73m2 Mildly to moderately decreased 45 - 59 mL/min/1.73m2 Moderately to severely decreased 30 - 44 mL/min/1.73m2 Severely decreased 15 - 29 mL/min/1.73m2 Kidney Failure < 15 mL/min/1.73m2 *Relative to young adult level Estimated glomerular filtration rate is determined by the 2020 CKD-EPI equation recommended by the National Kidney Foundation (A Unifying Approach to GFR Estimation: Recommendations of the NKF-ASK Task Force on Reassessing the Inclusion of Race in Diagnosing Kidney Disease, JASN 2020). The CKD-EPI equation should not be used for patients with unstable renal function and has not been validated in children and those over 70. Current interpretive data was last reviewed 2021. Blood 01/05/2025 10:0 1 PM CDT 01/05/2025 10:44 PM CDT Rosa Beltran NP LAB BLOOD ORDERABLES Final Re sult Performing Organization Address City/[facility]/ZIP Co de Phone Number [facility] Department [place] [address] * (ABNORMAL) Differential, auto (01/05/2025 10:01 PM CDT) Neutrophil abs 5.80 1.50 - 6.50 K/cumm Imm gran abs 0.17(H) 0.00 - 0.10 K/cumm [facility] Lymphocyte abs 0.59(L) 0.80 - 3.30 K/cumm [facility] Monocyte abs 0.45 0.20 - 0.80 K/cumm [facility] Eosinophil abs 0.18 0.00 - 0.50 K/cumm [facility] Basophil abs 0.03 0.00 - 0.10 K/cumm [facility] Neutrophil pct 80.3 % [facility] Comment: Interpretive Data Percent cell count reference ranges are not reported, since discordance with absolute values may lead to misinterpretation of CBC data. Current Interpretive Data was last revised on 2017. Imm gran pct 2.4 % [facility] Comment: Interpretive Data Percent cell count reference ranges are not reported, since discordance with absolute values may lead to misinterpretation of CBC data. Current Interpretive Data was last revised on 2017. Lymphocyte pct 8.2 % [facility] Comment: Interpretive Data Percent cell count reference ranges are not reported, since discordance with absolute values may lead to misinterpretation of CBC data. Current Interpretive Data was last revised on 2017. Monocyte pct 6.2 % [facility] Comment: Interpretive Data Percent cell count reference ranges are not reported, since discordance with absolute values may lead to misinterpretation of CBC data. Current Interpretive Data was last revised on 2017. Eosinophil pct 2.5 % [facility] Comment: Interpretive Data Percent cell count reference ranges are not reported, since discordance with absolute values may lead to misinterpretation of CBC data. Current Interpretive Data was last revised on 2017. Basophil pct 0.4 % [facility] Comment: Interpretive Data Percent cell count reference ranges are not reported, since discordance with absolute values may lead to misinterpretation of CBC data. Current Interpretive Data was last revised on 2017. Blood 01/05/2025 10:0 1 PM CDT 01/05/2025 10:38 PM CDT Rosa Beltran NP LAB BLOOD ORDERABLES Final Re sult Performing Organization Address [facility]/ZIP Co de Phone Number [facility] Department [place] [address] * (ABNORMAL) CBC with auto differential (01/05/2025 10:01 PM CDT) Pathologist [facility] WBC 7.22 3.80 - 9.90 K/cumm Hgb 8.8(L) 13.0 - 17.5 g/dL [facility] Hct 27.1(L) 38.9 - 50.3 % [facility] Plt 302 150 - 400 K/cumm [facility] MPV 9.8 9.1 - 12.3 fL [facility] RBC 2.65(L) 4.30 - 5.80 M/cumm [facility] MCV 102.3(H) 81.3 - 96.4 fL [facility] MCH 33.2 27.1 - 33.3 pg [facility] MCHC 32.5 32.3 - 35.7 g/dL [facility] RDW CV 15.3(H) 11.1 - 14.9 % [facility] RDW SD 57.2(H) 35.7 - 48.1 fL [facility] NRBC abs 0.03(H) 0.00 - 0.01 K/cumm [facility] Blood 01/05/2025 10:0 1 PM CDT 01/05/2025 10:38 PM CDT Rosa Beltran NP LAB BLOOD ORDERABLES Final Re sult [facility] Department [place] [address] * Type and screen (01/05/2025 10:01 PM CDT) Becca, indirect Negative ABO Rh A Positive [facility] Blood 01/05/2025 10:0 1 PM CDT 01/05/2025 10:41 PM CDT Narrative [facility] - 01/06/2025 12:08 AM CDT Has the patient had Daratumumab or Isatuximab in the past 6 months?->Unknown Rosa Beltran FIELD CONSULTANT LAB BLOOD BANK TEST ORDERABLE S Final Result [facility] [place] [address] * Phosphorus (01/05/2025 10:01 PM CDT) [facility] Phosphorus, pl 4.2 2.3 - 4.5 mg/dL Blood 01/05/2025 10:0 1 PM CDT 01/05/2025 10:38 PM CDT Rosa Beltran NP LAB BLOOD ORDERABLES Final Re sult Performing Organization Address City/[facility]/ZIP Co de Phone Number [facility] Department [place] [address] * (ABNORMAL) Magnesium (01/05/2025 10:01 PM CDT) [facility] Magnesium 2.7(H) 1.4 - 2.5 mg/dL Blood 01/05/2025 10:0 1 PM CDT 01/05/2025 10:38 PM CDT Rosa Beltran LAB BLOOD ORDERABLES Final Re sult Performing Organization Address City/[facility] Co de Phone Number [facility] [place] [address] * (ABNORMAL) Hepatic function panel (01/05/2025 10:01 PM CDT) [facility] Bilirubin, total 0.4 0.1 - 1.2 mg/dL Bilirubin, direct <0.2 0.1 - 0.3 mg/dL [facility] Comment:Reviewed Protein, pl 6.1(L) 6.5 - 8.5 g/dL [facility] Albumin 3.2(L) 3.5 - 5.0 g/dL [facility] Alk phos 52 40 - 130 Units/L [facility] ALT 19 7 - 55 Units/L [facility] AST 32 10 - 50 Units/L [facility] Blood 01/05/2025 10:0 1 PM CDT 01/05/2025 10:38 PM CDT us Parth Dalton MD LAB BLOOD ORDERABLES Final Re sult [facility] Department [place] [address] * (ABNORMAL) Basic metabolic panel (01/05/2025 10:01 PM CDT) [facility] Sodium 143 135 - 145 mmol/L Potassium, pl 4.5 3.3 - 4.9 mmol/L [facility] Chloride 108 97 - 110 mmol/L [facility] CO2 23 22 - 32 mmol/L [facility] Anion gap 12 2 - 15 mmol/L [facility] BUN 63(H) 6 - 25 mg/dL [facility] Creatinine 2.19(H) 0.80 - 1.30 mg/dL [facility] Glucose 94 70 - 199 mg/dL [facility] Comment: Interpretive Data Fasting glucose >/= 126 mg/dl is diagnostic for diabetes. Fasting is defined as no caloric intake for at least 8 hours. Fasting glucose between 100 mg/dl to 125 mg/dl is diagnostic of prediabetes. In a patient with classic symptoms of hyperglycemia or hyperglycemic crisis, a random glucose >/= 200 mg/dl is diagnostic for diabetes. In the absence of unequivocal hyperglycemia, results should be confirmed by repeat testing. The classification and Diagnosis of Diabetes Diabetes Care 2021; 46: S19-S40. Current interpretive data was last revised 2022. Calcium 9.1 8.5 - 10.3 mg/dL [facility] Blood 01/05/2025 10:0 1 PM CDT 01/05/2025 10:38 PM CDT Rosa Beltran NP LAB BLOOD ORDERABLES Final Re sult Performing Organization Address City/[facility] Co de Phone Number [facility] [place] [employer] [address] * POCT glucose (01/05/2025 7:48 PM CDT) Glucose, POC 85 70 - 199 mg/dL Blood 01/05/2025 7:48 PM CDT 01/05/2025 7:48 PM CDT Parth Dalton MD LAB POCT ORDERABLES - DEVICE Final Result Performing Organization Address [facility] Co de Phone Number [facility] [place] [address] * POCT glucose (01/05/2025 3:40 PM CDT) Glucose, POC 114 70 - 199 mg/dL Blood 01/05/2025 3:40 PM CDT 01/05/2025 3:40 PM CDT Parth Dalton MD LAB POCT ORDERABLES - DEVICE Final Result Performing Organization Address [facility] Co de Phone Number [facility] [place] [address] * Potassium, whole blood (01/05/2025 3:20 PM CDT) Potassium, bld 4.4 3.3 - 4.9 mmol/L Blood 01/05/2025 3:20 PM CDT 01/05/2025 3:37 PM CDT Jyotsna Salazar FIELD CONSULTANT LAB BLOOD ORDERABLES Final Result Performing Organization Address [facility] Co de Phone Number CYN[facility] [place] [address] * POCT glucose (01/05/2025 12:04 PM CDT) Glucose, POC 88 70 - 199 mg/dL Blood 01/05/2025 12:0 4 PM CDT 01/05/2025 12:04 PM CDT Parth Dalton MD LAB POCT ORDERABLES - DEVICE Final Result Performing Organization Address [facility] de Phone Number [facility] [place] [address] * Potassium, whole blood (01/05/2025 10:29 AM CDT) Potassium, bld 3.6 3.3 - 4.9 mmol/L Blood 01/05/2025 10:2 9 AM CDT 01/05/2025 10:39 AM CDT Jyotsna Salazar FIELD CONSULTANT LAB BLOOD ORDERABLES Final Result Performing Organization Address [facility] de Phone Number [facility] [place] [address] * POCT glucose (01/05/2025 7:52 AM CDT) Glucose, POC 106 70 - 199 mg/dL Blood 01/05/2025 7:52 AM CDT 01/05/2025 7:52 AM CDT Parth Dalton MD LAB POCT ORDERABLES - DEVICE Final Result Performing Organization Address [facility]/State/ZIP Co de Phone Number [facility] [place] [address] * Potassium, whole blood (01/05/2025 5:09 AM CDT) [facility] Potassium, bld 3.5 3.3 - 4.9 mmol/L Blood 01/05/2025 5:09 AM CDT 01/05/2025 5:17 AM CDT us Jyotsna Salazar FIELD CONSULTANT LAB BLOOD ORDERABLES Final Result Performing Organization Address [facility]/[place] [address] * POCT glucose (01/05/2025 5:07 AM CDT) [facility] Signature Glucose, POC 99 70 - 199 mg/dL Blood 01/05/2025 5:07 AM CDT 01/05/2025 5:07 AM CDT us Parth Dalton MD LAB POCT ORDERABLES - DEVICE Final Result Performing Organization Address [facility] [place] [address] * POCT glucose (01/04/2025 11:36 PM CDT) [facility] Signature Glucose, POC 96 70 - 199 mg/dL Blood 01/04/2025 11:3 6 PM CDT 01/04/2025 11:36 PM CDT us Parth Dalton MD LAB POCT ORDERABLES - DEVICE Final Result Performing Organization Address City/[facility]/ZIP Co de Phone Number [facility] [place] [address] * XR Chest 1 View (01/04/2025 11:12 PM CDT) Anatomical Region Laterality Modality Body, Chest N/A Digital Radiogra phy 01/05/2025 8:53 AM CDT Impressions 01/05/2025 10:58 AM CDT Comparison 01/03/2025. Tracheostomy tip in the upper thoracic trachea. A right internal jugular central venous catheter terminates in the superior vena cava. Sternotomy plates are present. Left atrial appendage clip. A left basilar chest tube is present. Epicardial pacing wires are present. There is a small left hydropneumothorax. There is moderate left greater than right right basilar atelectasis. Stable cardiomediastinal silhouette. Old left rib fractures are better seen on recent chest CT. Dictated by: Henrry Hoff MD The radiology attending physician has personally reviewed this study, and had reviewed and/or edited this written report and agrees with it. Electronically signed by: Vasquez Yusuf M.D. Narrative 01/05/2025 10:58 AM CDT EXAMINATION: 1 view chest radiograph Procedure Note Vasquez Yusuf MD PhD - 01/05/2025 EXAMINATION: 1 view chest radiograph IMPRESSION: Comparison 01/03/2025. Tracheostomy tip in the upper thoracic trachea. A right internal jugular central venous catheter terminates in the superior vena cava. Sternotomy plates are present. Left atrial appendage clip. A left basilar chest tube is present. Epicardial pacing wires are present. There is a small left hydropneumothorax. There is moderate left greater than right right basilar atelectasis. Stable cardiomediastinal silhouette. Old left rib fractures are better seen on recent chest CT. Dictated by: Henrry Hoff MD The radiology attending physician has personally reviewed this study, and had reviewed and/or edited this written report and agrees with it. Electronically signed by: Vasquez Yusuf M.D. Jyotsna Salazar FIELD CONSULTANT IMG XR PROCEDURES Final Re sult * (ABNORMAL) eGFR (01/04/2025 9:31 PM CDT) eGFR 24(L) >=60 mL/min/1. 73 m2 Comment: Interpretive Data Reference Interval Normal >/= 90 mL/min/1.73m2 Mildly decreased* 60 - 89 mL/min/1.73m2 Mildly to moderately decreased 45 - 59 mL/min/1.73m2 Moderately to severely decreased 30 - 44 mL/min/1.73m2 Severely decreased 15 - 29 mL/min/1.73m2 Kidney Failure < 15 mL/min/1.73m2 *Relative to young adult level Estimated glomerular filtration rate is determined by the 2020 CKD-EPI equation recommended by the National Kidney Foundation (A Unifying Approach to GFR Estimation: Recommendations of the NKF-ASK Task Force on Reassessing the Inclusion of Race in Diagnosing Kidney Disease, JASN 2020). The CKD-EPI equation should not be used for patients with unstable renal function and has not been validated in children and those over 70. Current interpretive data was last reviewed 2021. Blood 01/04/2025 9:31 PM CDT 01/04/2025 10:25 PM CDT Rosa Beltran NP LAB BLOOD ORDERABLES Final Re sult [facility] Department [place] [address] * (ABNORMAL) Differential, auto (01/04/2025 9:31 PM CDT) Neutrophil abs 5.47 1.50 - 6.50 K/cumm Imm gran abs 0.10 0.00 - 0.10 K/cumm [facility] Lymphocyte abs 0.28(L) 0.80 - 3.30 K/cumm [facility] Monocyte abs 0.24 0.20 - 0.80 K/cumm [facility] Eosinophil abs 0.12 0.00 - 0.50 K/cumm [facility] Basophil abs 0.02 0.00 - 0.10 K/cumm [facility] Neutrophil pct 87.8 % [facility] Comment: Interpretive Data Percent cell count reference ranges are not reported, since discordance with absolute values may lead to misinterpretation of CBC data. Current Interpretive Data was last revised on 2017. Imm gran pct 1.6 % [facility] Comment: Interpretive Data Percent cell count reference ranges are not reported, since discordance with absolute values may lead to misinterpretation of CBC data. Current Interpretive Data was last revised on 2017. Lymphocyte pct 4.5 % [facility] Comment: Interpretive Data Percent cell count reference ranges are not reported, since discordance with absolute values may lead to misinterpretation of CBC data. Current Interpretive Data was last revised on 2017. Monocyte pct 3.9 % [facility] Comment: Interpretive Data Percent cell count reference ranges are not reported, since discordance with absolute values may lead to misinterpretation of CBC data. Current Interpretive Data was last revised on 2017. Eosinophil pct 1.9 % [facility] Comment: Interpretive Data Percent cell count reference ranges are not reported, since discordance with absolute values may lead to misinterpretation of CBC data. Current Interpretive Data was last revised on 2017. Basophil pct 0.3 % [facility] Comment: Interpretive Data Percent cell count reference ranges are not reported, since discordance with absolute values may lead to misinterpretation of CBC data. Current Interpretive Data was last revised on 2017. Blood 01/04/2025 9:31 PM CDT 01/04/2025 10:33 PM CDT Rosa Beltran NP LAB BLOOD ORDERABLES Final Re sult [facility] Department [place] [address] * (ABNORMAL) CBC with auto differential (01/04/2025 9:31 PM CDT) WBC 6.23 3.80 - 9.90 K/cumm Hgb 8.4(L) 13.0 - 17.5 g/dL [facility] Hct 25.1(L) 38.9 - 50.3 % [facility] Plt 263 150 - 400 K/cumm [facility] MPV 10.4 9.1 - 12.3 fL [facility] RBC 2.49(L) 4.30 - 5.80 M/cumm [facility] MCV 100.8(H) 81.3 - 96.4 fL [facility] MCH 33.7(H) 27.1 - 33.3 pg [facility] MCHC 33.5 32.3 - 35.7 g/dL [facility] RDW CV 15.0(H) 11.1 - 14.9 % [facility] RDW SD 55.5(H) 35.7 - 48.1 fL [facility] NRBC abs 0.03(H) 0.00 - 0.01 K/cumm [facility] Blood 01/04/2025 9:31 PM CDT 01/04/2025 10:33 PM CDT Rosa Beltran LAB BLOOD ORDERABLES Final Re sult Performing Organization Address [facility] de Phone Number [facility] Department [place] [address] * aPTT (01/04/2025 9:31 PM CDT) Pathologist [facility] aPTT 28 26 - 38 sec Comment: Interpretive Data Heparin therapeutic range: 66.0 - 100.0 seconds. Range based on correlation with therapeutic heparin activity range of 0.3 - 0.7 Units/mL. Current interpretive data was last revised on 2023. Blood 01/04/2025 9:31 PM CDT 01/04/2025 10:25 PM CDT [facility] Final Re sult Performing Organization Address City/[facility] Co de Phone Number [facility] [place] [address] * Protime-INR (01/04/2025 9:31 PM CDT) Pathologist [facility] PT 12.3 10.2 - 13.5 sec INR 1.09 0.90 - 1.20 [facility] Comment: Interpretive data Oral anticoagulant therapeutic ranges: Venous thromboembolism prophylaxis or treatment: 2.0-3.0 CARDIOLOGY Standard range: 2.0-3.0 High-intensity range: 2.5-3.5 Refer to indication-specific guidelines for appropriate target ranges for prosthetic heart valve replacement. Current interpretive data was last revised on 2019. Blood 01/04/2025 9:31 PM CDT 01/04/2025 10:25 PM CDT Rosa Beltran FIELD CONSULTANT LAB BLOOD ORDERABLES Final Re sult Performing Organization Address [facility] Co de Phone Number [facility] [place] [address] * (ABNORMAL) Phosphorus (01/04/2025 9:31 PM CDT) Phosphorus, pl 5.3(H) 2.3 - 4.5 mg/dL Blood 01/04/2025 9:31 PM CDT 01/04/2025 10:25 PM CDT Rosa Sudaemely FIELD CONSULTANT LAB BLOOD ORDERABLES Final Re sult Performing Organization Address [facility] Co de Phone Number [facility] [place] [address] * (ABNORMAL) Magnesium (01/04/2025 9:31 PM CDT) Magnesium 2.6(H) 1.4 - 2.5 mg/dL Blood 01/04/2025 9:31 PM CDT 01/04/2025 10:25 PM CDT [facility] CONSULT[facility] LAB BLOOD ORDERABLES Final Re sult Performing Organization Address City/[facility] Co de Phone Number [facility] [place] [address] * (ABNORMAL) Hepatic function panel (01/04/2025 9:31 PM CDT) [facility] Bilirubin, total 0.4 0.1 - 1.2 mg/dL Bilirubin, direct 0.2 0.1 - 0.3 mg/dL [facility] Protein, pl 6.2(L) 6.5 - 8.5 g/dL [facility] Albumin 3.1(L) 3.5 - 5.0 g/dL [facility] Alk phos 49 40 - 130 Units/L [facility] ALT 13 7 - 55 Units/L [facility] AST 28 10 - 50 Units/L [facility] Blood 01/04/2025 9:31 PM CDT 01/04/2025 10:25 PM CDT Rosa Beltran FIELD CONSULTANT LAB BLOOD ORDERABLES Final Re sult [facility] Department [place] [address] * (ABNORMAL) Basic metabolic panel (01/04/2025 9:31 PM CDT) [facility] Sodium 139 135 - 145 mmol/L Potassium, pl 3.7 3.3 - 4.9 mmol/L [facility] Chloride 105 97 - 110 mmol/L [facility] CO2 21(L) 22 - 32 mmol/L [facility] Anion gap 13 2 - 15 mmol/L [facility] BUN 58(H) 6 - 25 mg/dL [facility] Creatinine 2.71(H) 0.80 - 1.30 mg/dL [facility] Glucose 91 70 - 199 mg/dL [facility] Comment: Interpretive Data Fasting glucose >/= 126 mg/dl is diagnostic for diabetes. Fasting is defined as no caloric intake for at least 8 hours. Fasting glucose between 100 mg/dl to 125 mg/dl is diagnostic of prediabetes. In a patient with classic symptoms of hyperglycemia or hyperglycemic crisis, a random glucose >/= 200 mg/dl is diagnostic for diabetes. In the absence of unequivocal hyperglycemia, results should be confirmed by repeat testing. The classification and Diagnosis of Diabetes Diabetes Care 2021; 46: S19-S40. Current interpretive data was last revised 2022. Calcium 8.7 8.5 - 10.3 mg/dL [facility] Blood 01/04/2025 9:31 PM CDT 01/04/2025 10:25 PM CDT Rosa Beltran NP LAB BLOOD ORDERABLES Final Re sult Performing Organization Address City/[facility]/ZIP Co de Phone Number [facility] [place] [address] * POCT glucose (01/04/2025 9:25 PM CDT) Glucose, POC 97 70 - 199 mg/dL Blood 01/04/2025 9:25 PM CDT 01/04/2025 9:25 PM CDT Parth Dalton MD LAB POCT ORDERABLES - DEVICE Final Result Performing Organization Address City/[facility] Co de Phone Number [facility] [place] [address] * POCT glucose (01/04/2025 7:29 PM CDT) Glucose, POC 95 70 - 199 mg/dL Blood 01/04/2025 7:29 PM CDT 01/04/2025 7:29 PM CDT Parth Dalton MD LAB POCT ORDERABLES - DEVICE Final Result Performing Organization Address City/[facility] Co de Phone Number [facility] [place] [address] * POCT glucose (01/04/2025 3:55 PM CDT) Glucose, POC 88 70 - 199 mg/dL Blood 01/04/2025 3:55 PM CDT 01/04/2025 3:55 PM CDT Parth Dalton MD LAB POCT ORDERABLES - DEVICE Final Result Performing Organization Address [facility] Co de Phone Number [facility] Department [place] [address] * (ABNORMAL) eGFR (01/04/2025 11:48 AM CDT) eGFR 25(L) >=60 mL/min/1. 73 m2 Comment: Interpretive Data Reference Interval Normal >/= 90 mL/min/1.73m2 Mildly decreased* 60 - 89 mL/min/1.73m2 Mildly to moderately decreased 45 - 59 mL/min/1.73m2 Moderately to severely decreased 30 - 44 mL/min/1.73m2 Severely decreased 15 - 29 mL/min/1.73m2 Kidney Failure < 15 mL/min/1.73m2 *Relative to young adult level Estimated glomerular filtration rate is determined by the 2020 CKD-EPI equation recommended by the National Kidney Foundation (A Unifying Approach to GFR Estimation: Recommendations of the NKF-ASK Task Force on Reassessing the Inclusion of Race in Diagnosing Kidney Disease, JASN 2020). The CKD-EPI equation should not be used for patients with unstable renal function and has not been validated in children and those over 70. Current interpretive data was last reviewed 2021. Blood 01/04/2025 11:4 8 AM CDT 01/04/2025 12:05 PM CDT Parth Dalton MD LAB BLOOD ORDERABLES Final Re sult Performing Organization Address City/[facility]/ZIP Co de Phone Number [facility] Department [place] [address] * (ABNORMAL) Basic metabolic panel (01/04/2025 11:48 AM CDT) Sodium 138 135 - 145 mmol/L Potassium, pl 3.9 3.3 - 4.9 mmol/L [facility] Chloride 102 97 - 110 mmol/L [facility] CO2 22 22 - 32 mmol/L [facility] Anion gap 14 2 - 15 mmol/L [facility] BUN 58(H) 6 - 25 mg/dL [facility] Creatinine 2.62(H) 0.80 - 1.30 mg/dL [facility] Glucose 103 70 - 199 mg/dL [facility] Comment: Interpretive Data Fasting glucose >/= 126 mg/dl is diagnostic for diabetes. Fasting is defined as no caloric intake for at least 8 hours. Fasting glucose between 100 mg/dl to 125 mg/dl is diagnostic of prediabetes. In a patient with classic symptoms of hyperglycemia or hyperglycemic crisis, a random glucose >/= 200 mg/dl is diagnostic for diabetes. In the absence of unequivocal hyperglycemia, results should be confirmed by repeat testing. The classification and Diagnosis of Diabetes Diabetes Care 2021; 46: S19-S40. Current interpretive data was last revised 2022. Calcium 8.9 8.5 - 10.3 mg/dL [facility] Blood 01/04/2025 11:4 8 AM CDT 01/04/2025 12:05 PM CDT Parth Dalton MD LAB BLOOD ORDERABLES Final Re sult Performing Organization Address City/[facility]/ZIP Co de Phone Number [facility] Department of [place] [address] * POCT glucose (01/04/2025 11:47 AM CDT) [facility] Signature Glucose, POC 109 70 - 199 mg/dL Blood 01/04/2025 11:4 7 AM CDT 01/04/2025 11:47 AM CDT us Parth Dalton MD LAB POCT ORDERABLES - DEVICE Final Result Performing Organization Address [facility]/ZIP Co de Phone Number [facility] Department [place] [place] [address] * POCT glucose (01/04/2025 7:49 AM CDT) Glucose, POC 102 70 - 199 mg/dL Blood 01/04/2025 7:49 AM CDT 01/04/2025 7:49 AM CDT Parth Dalton MD LAB POCT ORDERABLES - DEVICE Final Result Performing Organization Address [facility] Co de Phone Number [facility] [place] [address] * (ABNORMAL) POCT glucose (01/04/2025 7:47 AM CDT) Glucose, POC 68(L) 70 - 199 mg/dL Blood 01/04/2025 7:47 AM CDT 01/04/2025 7:47 AM CDT Parth Dalton MD LAB POCT ORDERABLES - DEVICE Final Result Performing Organization Address [facility] de Phone Number [facility] [place] [address] * POCT glucose (01/04/2025 4:08 AM CDT) Glucose, POC 95 70 - 199 mg/dL Blood 01/04/2025 4:08 AM CDT 01/04/2025 4:08 AM CDT Parth Dalton MD LAB POCT ORDERABLES - DEVICE Final Result Performing Organization Address [facility] [place] [address] * (ABNORMAL) POCT glucose (01/04/2025 4:03 AM CDT) Glucose, POC 65(L) 70 - 199 mg/dL Blood 01/04/2025 4:03 AM CDT 01/04/2025 4:03 AM CDT aPrth Dalton MD LAB POCT ORDERABLES - DEVICE Final Result Performing Organization Address [facility] Co de Phone Number [facility] [place] [place] [address] * Oxyhemoglobin, central venous (01/04/2025 12:06 AM CDT) Oxyhemoglobin, CV 62.7 % Comment: Interpretive Data No reference range established. Current interpretive data was last revised 2019. Blood 01/04/2025 12:0 6 AM CDT 01/04/2025 12:14 AM CDT Parth Dalton MD LAB BLOOD ORDERABLES Final Re sult Performing Organization Address [facility] Co de Phone Number [facility] [place] [address] * Potassium, whole blood (01/04/2025 12:06 AM CDT) [facility] Potassium, bld 4.3 3.3 - 4.9 mmol/L Blood 01/04/2025 12:0 6 AM CDT 01/04/2025 12:14 AM CDT Parth Dalton MD LAB BLOOD ORDERABLES Final Re sult Performing Organization Address [facility] Co de Phone Number [facility] [place] [address] * (ABNORMAL) eGFR (01/04/2025 12:06 AM CDT) eGFR 26(L) >=60 mL/min/1. 73 m2 Comment: Interpretive Data Reference Interval Normal >/= 90 mL/min/1.73m2 Mildly decreased* 60 - 89 mL/min/1.73m2 Mildly to moderately decreased 45 - 59 mL/min/1.73m2 Moderately to severely decreased 30 - 44 mL/min/1.73m2 Severely decreased 15 - 29 mL/min/1.73m2 Kidney Failure < 15 mL/min/1.73m2 *Relative to young adult level Estimated glomerular filtration rate is determined by the 2020 CKD-EPI equation recommended by the National Kidney Foundation (A Unifying Approach to GFR Estimation: Recommendations of the NKF-ASK Task Force on Reassessing the Inclusion of Race in Diagnosing Kidney Disease, JASN 2020). The CKD-EPI equation should not be used for patients with unstable renal function and has not been validated in children and those over 70. Current interpretive data was last reviewed 2021. Blood 01/04/2025 12:0 6 AM CDT 01/04/2025 12:20 AM CDT us Marsha Villarreal FIELD CONSULTANT LAB BLOOD ORDERABLES Final Re [facility]ult [facility] Department [place] [address] * POCT glucose (01/04/2025 12:06 AM CDT) Glucose, POC 96 70 - 199 mg/dL Blood 01/04/2025 12:0 6 AM CDT 01/04/2025 12:06 AM CDT us Parth Dalton MD LAB POCT ORDERABLES - DEVICE Final Result [facility] [place] [address] * Lactate, whole blood (01/04/2025 12:06 AM CDT) Lactate, bld 1.7 0.7 - 2.0 mmol/L Blood 01/04/2025 12:0 6 AM CDT 01/04/2025 12:14 AM CDT us Sravan ROBBINS LAB BLOOD ORDERABLES Raquel amaya Result Performing Organization Address [facility]/ZIP Co de Phone Number [facility] Department [place] [address] * (ABNORMAL) CBC without differential (01/04/2025 12:06 AM CDT) Pathologist [facility] WBC 7.03 3.80 - 9.90 K/cumm Hgb 7.8(L) 13.0 - 17.5 g/dL [facility] Hct 23.2(L) 38.9 - 50.3 % [facility] Plt 203 150 - 400 K/cumm [facility] MPV 10.4 9.1 - 12.3 fL [facility] RBC 2.32(L) 4.30 - 5.80 M/cumm [facility] MCV 100.0(H) 81.3 - 96.4 fL [facility] MCH 33.6(H) 27.1 - 33.3 pg [facility] MCHC 33.6 32.3 - 35.7 g/dL [facility] RDW CV 14.9 11.1 - 14.9 % [facility] RDW SD 54.5(H) 35.7 - 48.1 fL [facility] NRBC abs 0.03(H) 0.00 - 0.01 K/cumm [facility] Blood 01/04/2025 12:0 6 AM CDT 01/04/2025 12:19 AM CDT us Nicole Ho FIELD CONSULTANT LAB BLOOD ORDERABLES F inal Result Performing Organization Address [facility]/ZIP Co de Phone Number [facility] Department [place] [address] * (ABNORMAL) Phosphorus (01/04/2025 12:06 AM CDT) Pathologist [facility] Phosphorus, pl 5.9(H) 2.3 - 4.5 mg/dL Blood 01/04/2025 12:0 6 AM CDT 01/04/2025 12:12 AM CDT Marsha Villarreal FIELD CONSULTANT LAB BLOOD ORDERABLES Final Re sult Performing Organization Address City/[facility] Co de Phone Number [facility] Department [place] [address] * (ABNORMAL) Magnesium (01/04/2025 12:06 AM CDT) Pathologist [facility] Magnesium 2.6(H) 1.4 - 2.5 mg/dL Blood 01/04/2025 12:0 6 AM CDT 01/04/2025 12:12 AM CDT Parth Dalton MD LAB BLOOD ORDERABLES Final Re sult Performing Organization Address [facility] de Phone Number [facility] [place] [address] * (ABNORMAL) Basic metabolic panel (01/04/2025 12:06 AM CDT) [facility] Sodium 137 135 - 145 mmol/L Potassium, pl 4.4 3.3 - 4.9 mmol/L [facility] Chloride 102 97 - 110 mmol/L [facility] CO2 23 22 - 32 mmol/L [facility] Anion gap 12 2 - 15 mmol/L [facility] BUN 53(H) 6 - 25 mg/dL [facility] Creatinine 2.54(H) 0.80 - 1.30 mg/dL [facility] Glucose 100 70 - 199 mg/dL [facility] Comment: Interpretive Data Fasting glucose >/= 126 mg/dl is diagnostic for diabetes. Fasting is defined as no caloric intake for at least 8 hours. Fasting glucose between 100 mg/dl to 125 mg/dl is diagnostic of prediabetes. In a patient with classic symptoms of hyperglycemia or hyperglycemic crisis, a random glucose >/= 200 mg/dl is diagnostic for diabetes. In the absence of unequivocal hyperglycemia, results should be confirmed by repeat testing. The classification and Diagnosis of Diabetes Diabetes Care 2021; 46: S19-S40. Current interpretive data was last revised 2022. Calcium 8.6 8.5 - 10.3 mg/dL [facility] Blood 01/04/2025 12:0 6 AM CDT 01/04/2025 12:12 AM CDT us Marsha Villarreal FIELD CONSULTANT LAB BLOOD ORDERABLES Final Re sult [facility] Department [place] [address] * POCT glucose (01/03/2025 8:01 PM CDT) [facility] Glucose, POC 98 70 - 199 mg/dL Blood 01/03/2025 8:01 PM CDT 01/03/2025 8:01 PM CDT us Parth Dalton MD LAB POCT ORDERABLES - DEVICE Final Result Performing Organization Address [facility] Co de Phone Number [facility] Department [place] [address] * XR Chest 1 View (01/03/2025 7:20 PM CDT) Anatomical Region Laterality Modality Body, Chest N/A Digital Radiogra phy 01/04/2025 7:42 AM CDT Impressions 01/04/2025 7:42 AM CDT Comparison is made to prior chest radiograph dated 01/02/2025. Tracheostomy tubing projects over the upper thoracic trachea. Gastric tube courses caudally below the diaphragm, beyond the [id number]. Sternotomy plate are unchanged. There is left atrial appendage clip. Tip of a right internal jugular central venous catheter terminates in the superior vena cava. Left-sided chest tube is in place. No significant interval change in mild bibasilar atelectasis. No pneumothorax. Stable cardiomegaly. Electronically signed by: Lupe Garland M.D. Narrative 01/04/2025 7:42 AM CDT EXAMINATION: 1 view chest radiograph Procedure Note Lupe Garland MD - 01/04/2025 EXAMINATION: 1 view chest radiograph IMPRESSION: Comparison is made to prior chest radiograph dated 01/02/2025. Tracheostomy tubing projects over the upper thoracic trachea. Gastric tube courses caudally below the diaphragm, beyond the [id number]. Sternotomy plate are unchanged. There is left atrial appendage clip. Tip of a right internal jugular central venous catheter terminates in the superior vena cava. Left-sided chest tube is in place. No significant interval change in mild bibasilar atelectasis. No pneumothorax. Stable cardiomegaly. Electronically signed by: Lupe Garland M.D. us Thoa Thi Palacios FIELD CONSULTANT IMG XR PROCEDURES Final Resul t * Critical Care (01/03/2025 6:40 PM CDT) Narrative Reinaldo Griffin MD - 01/03/2025 6:40 PM CDT Reinaldo Griffin MD 01/05/2025 9:02 AM Critical Care Performed by: Sravan Lugo PA Authorized by: Sravan Lugo PA CRITICAL CARE: Team: 56 CTICU Shift: PM Level of Billing: Critical Care My time spent with this patient was 55 minutes: Critical Provider Statement: I have seen and examined the patient on this day of service. I have reviewed and confirmed the history, physical exam, laboratory and radiologic data as documented in the signed ICU note. I have reviewed and discussed my treatment plan with the ICU team and other medical/revenue cycle consultant staff, making frequent assessments and decisions regarding this patient's complex medical care. Critical Care time was exclusive of time spent performing separately billed procedures, treating other patients, and teaching. This time was in addition to and separate from critical care provided by other practitioners in my group on this day of service. Critical Care was necessary to treat or prevent imminent or life-threatening deterioration of the following conditions: I spent time reviewing and interpreting data from bedside monitors, laboratory results, and imaging, I spent time discussing the management of this critically ill patient with consultants and the medical staff and I spent time documenting in the medical record us Sravan ROBBINS IN CLINIC/BEDSIDE ORDERAB LES Final Result * (ABNORMAL) Lactate, whole blood (01/03/2025 6:20 PM CDT) Pathologist [facility] Lactate, bld 2.2(H) 0.7 - 2.0 mmol/L Blood 01/03/2025 6:20 PM CDT 01/03/2025 6:28 PM CDT us Jyotsna Salazar FIELD CONSULTANT LAB BLOOD ORDERABLES Final Result Performing Organization Address City/[facility]/ZIP Co de Phone Number [facility] Department [place] [address] * POCT glucose (01/03/2025 4:59 PM CDT) [facility] Glucose, POC 106 70 - 199 mg/dL Blood 01/03/2025 4:59 PM CDT 01/03/2025 4:59 PM CDT us Parth Dalton MD LAB POCT ORDERABLES - DEVICE Final Result Performing Organization Address [facility] Co de Phone Number [facility] Department [place] [address] * MRSA Only (Staphylococcus aureus) Culture Nasal (01/03/2025 11:26 AM CDT) [facility] Report Final Report: Negative Nasal 01/03/2025 11:2 6 AM CDT 01/03/2025 11:59 AM CDT Narrative [facility] - 01/04/2025 1:37 PM CDT Testing performed by [facility] ([phone]). Seema Palma DNP LAB MICROBIOLOGY - GENE RAL ORDERABLES Final Result Performing Organization Address [facility] Co de Phone Number [facility] Department [place] [address] * (ABNORMAL) eGFR (01/03/2025 11:26 AM CDT) eGFR 30(L) >=60 mL/min/1. 73 m2 Comment: Interpretive Data Reference Interval Normal >/= 90 mL/min/1.73m2 Mildly decreased* 60 - 89 mL/min/1.73m2 Mildly to moderately decreased 45 - 59 mL/min/1.73m2 Moderately to severely decreased 30 - 44 mL/min/1.73m2 Severely decreased 15 - 29 mL/min/1.73m2 Kidney Failure < 15 mL/min/1.73m2 *Relative to young adult level Estimated glomerular filtration rate is determined by the 2020 CKD-EPI equation recommended by the National Kidney Foundation (A Unifying Approach to GFR Estimation: Recommendations of the NKF-ASK Task Force on Reassessing the Inclusion of Race in Diagnosing Kidney Disease, JASN 2020). The CKD-EPI equation should not be used for patients with unstable renal function and has not been validated in children and those over 70. Current interpretive data was last reviewed 2021. Blood 01/03/2025 11:2 6 AM CDT 01/03/2025 11:48 AM CDT us Seema Palma [facility] LAB BLOOD ORDERABLES Fi nal Result Performing Organization Address [facility]/ZIP Co de Phone Number [facility] Department [place] [address] * (ABNORMAL) Basic metabolic panel (01/03/2025 11:26 AM CDT) Pathologist [facility] Sodium 136 135 - 145 mmol/L Potassium, pl 3.7 3.3 - 4.9 mmol/L [facility] Chloride 100 97 - 110 mmol/L [facility] CO2 22 22 - 32 mmol/L [facility] Anion gap 14 2 - 15 mmol/L [facility] BUN 45(H) 6 - 25 mg/dL [facility] Creatinine 2.21(H) 0.80 - 1.30 mg/dL [facility] Glucose 104 70 - 199 mg/dL [facility] Comment: Interpretive Data Fasting glucose >/= 126 mg/dl is diagnostic for diabetes. Fasting is defined as no caloric intake for at least 8 hours. Fasting glucose between 100 mg/dl to 125 mg/dl is diagnostic of prediabetes. In a patient with classic symptoms of hyperglycemia or hyperglycemic crisis, a random glucose >/= 200 mg/dl is diagnostic for diabetes. In the absence of unequivocal hyperglycemia, results should be confirmed by repeat testing. The classification and Diagnosis of Diabetes Diabetes Care 2021; 46: S19-S40. Current interpretive data was last revised 2022. Calcium 8.4(L) 8.5 - 10.3 mg/dL [facility] Blood 01/03/2025 11:2 6 AM CDT 01/03/2025 11:48 AM CDT us Seema Palma DNP LAB BLOOD ORDERABLES Fi nal Result [facility] Department [place] [address] * POCT glucose (01/03/2025 8:20 AM CDT) Glucose, POC 108 70 - 199 mg/dL Blood 01/03/2025 8:20 AM CDT 01/03/2025 8:20 AM CDT us Parth Dalton MD LAB POCT ORDERABLES - DEVICE Final Result [facility] Department [place] [address] * POCT glucose (01/03/2025 4:17 AM CDT) Glucose, POC 102 70 - 199 mg/dL Blood 01/03/2025 4:17 AM CDT 01/03/2025 4:17 AM CDT Parth Dalton MD LAB POCT ORDERABLES - DEVICE Final Result [facility] [place] [address] * POCT glucose (01/03/2025 12:10 AM CDT) Glucose, POC 134 70 - 199 mg/dL Blood 01/03/2025 12:1 0 AM CDT 01/03/2025 12:10 AM CDT Parth Dalton MD LAB POCT ORDERABLES - DEVICE Final Result Performing Organization Address [facility] de Phone Number [facility] [place] [address] * Infection Prevention Blanche auris PCR, surveillance Axilla/Groin (01/03/2025 12:06 AM CDT) Pathologist [facility] Blanche auris DNA Not Detected Not Detected [facility] Comment: Interpretive Data Testing performed by [facility] using the Daquan flaquita 6800 Blanche auris assay. This assay detects DNA from Blanche auris using Real-Time PCR. This assay is laboratory developed and is not cleared by the [facility] Food and Drug Administration. The performance characteristics have been verified by the [facility]. Axilla/Groin 01/03/2025 12:0 6 AM CDT 01/03/2025 2:54 AM CDT Narrative [facility] - 01/03/2025 12:43 PM CDT Order placed by [facility] due to ring surveillance. Instant Order Generic Provider LAB MICROBIOLOGY - GENERAL ORDERABLES Final Result Performing Organization Address City/[facility] Co de Phone Number [facility] [place] [address] [facility] * Oxyhemoglobin, central venous (01/03/2025 12:06 AM CDT) [facility] Oxyhemoglobin, CV 64.7 % Comment: Interpretive Data No reference range established. Current interpretive data was last revised 2019. Blood 01/03/2025 12:0 6 AM CDT 01/03/2025 12:18 AM CDT Magy Kaur NP LAB BLOOD ORDERABLES F inal Result Performing Organization Address [facility]/ZIP Co de Phone Number [facility] Department [place] [address] * Potassium, whole blood (01/03/2025 12:06 AM CDT) [facility] Potassium, bld 3.7 3.3 - 4.9 mmol/L Blood 01/03/2025 12:0 6 AM CDT 01/03/2025 12:18 AM CDT Parth Dalton MD LAB BLOOD ORDERABLES Final Re sult Performing Organization Address City/[facility]/ZIP Co de Phone Number [facility] Department [place] [address] * (ABNORMAL) eGFR (01/03/2025 12:06 AM CDT) [facility] eGFR 34(L) >=60 mL/min/1. 73 m2 Comment: Interpretive Data Reference Interval Normal >/= 90 mL/min/1.73m2 Mildly decreased* 60 - 89 mL/min/1.73m2 Mildly to moderately decreased 45 - 59 mL/min/1.73m2 Moderately to severely decreased 30 - 44 mL/min/1.73m2 Severely decreased 15 - 29 mL/min/1.73m2 Kidney Failure < 15 mL/min/1.73m2 *Relative to young adult level Estimated glomerular filtration rate is determined by the 2020 CKD-EPI equation recommended by the National Kidney Foundation (A Unifying Approach to GFR Estimation: Recommendations of the NKF-ASK Task Force on Reassessing the Inclusion of Race in Diagnosing Kidney Disease, JASN 2020). The CKD-EPI equation should not be used for patients with unstable renal function and has not been validated in children and those over 70. Current interpretive data was last reviewed 2021. Blood 01/03/2025 12:0 6 AM CDT 01/03/2025 12:18 AM CDT us Marsha Villarreal FIELD CONSULTANT LAB BLOOD ORDERABLES Final Re sult [facility] Department [place] [address] * (ABNORMAL) Differential, auto (01/03/2025 12:06 AM CDT) Neutrophil abs 4.02 1.50 - 6.50 K/cumm Imm gran abs 0.03 0.00 - 0.10 K/cumm [facility] Lymphocyte abs 0.26(L) 0.80 - 3.30 K/cumm [facility] Monocyte abs 0.26 0.20 - 0.80 K/cumm [facility] Eosinophil abs 0.01 0.00 - 0.50 K/cumm [facility] Basophil abs 0.01 0.00 - 0.10 K/cumm [facility] Neutrophil pct 87.5 % [facility] Comment: Interpretive Data Percent cell count reference ranges are not reported, since discordance with absolute values may lead to misinterpretation of CBC data. Current Interpretive Data was last revised on 2017. Imm gran pct 0.7 % [facility] Comment: Interpretive Data Percent cell count reference ranges are not reported, since discordance with absolute values may lead to misinterpretation of CBC data. Current Interpretive Data was last revised on 2017. Lymphocyte pct 5.7 % [facility] Comment: Interpretive Data Percent cell count reference ranges are not reported, since discordance with absolute values may lead to misinterpretation of CBC data. Current Interpretive Data was last revised on 2017. Monocyte pct 5.7 % [facility] Comment: Interpretive Data Percent cell count reference ranges are not reported, since discordance with absolute values may lead to misinterpretation of CBC data. Current Interpretive Data was last revised on 2017. Eosinophil pct 0.2 % [facility] Comment: Interpretive Data Percent cell count reference ranges are not reported, since discordance with absolute values may lead to misinterpretation of CBC data. Current Interpretive Data was last revised on 2017. Basophil pct 0.2 % [facility] Comment: Interpretive Data Percent cell count reference ranges are not reported, since discordance with absolute values may lead to misinterpretation of CBC data. Current Interpretive Data was last revised on 2017. Blood 01/03/2025 12:0 6 AM CDT 01/03/2025 12:18 AM CDT us Marla Francois NP LAB BLOOD ORDERABLES Raquel amaya Result [facility] Department [place] [address] * (ABNORMAL) CBC with auto differential (01/03/2025 12:06 AM CDT) WBC 4.59 3.80 - 9.90 K/cumm Hgb 7.8(L) 13.0 - 17.5 g/dL [facility] Hct 23.6(L) 38.9 - 50.3 % [facility] Plt 149(L) 150 - 400 K/cumm [facility] MPV 10.4 9.1 - 12.3 fL [facility] RBC 2.34(L) 4.30 - 5.80 M/cumm [facility] MCV 100.9(H) 81.3 - 96.4 fL [facility] MCH 33.3 27.1 - 33.3 pg [facility] MCHC 33.1 32.3 - 35.7 g/dL [facility] RDW CV 14.5 11.1 - 14.9 % [facility] RDW SD 53.8(H) 35.7 - 48.1 fL [facility] NRBC abs 0.02(H) 0.00 - 0.01 K/cumm [facility] Blood 01/03/2025 12:0 6 AM CDT 01/03/2025 12:18 AM CDT Marla Francois FIELD CONSULTANT LAB BLOOD ORDERABLES Raquel l Result Performing Organization Address [facility]/ZIP Co de Phone Number [facility] [place] [address] * Type and screen (01/03/2025 12:06 AM CDT) Becca, indirect Negative ABO Rh A Positive [facility] Blood 01/03/2025 12:0 6 AM CDT 01/03/2025 12:21 AM CDT Narrative [facility] - 01/03/2025 1:23 AM CDT Has the patient had Daratumumab or Isatuximab in the past 6 months?->Unknown Nicole Ho FIELD CONSULTANT LAB BLOOD BANK TEST OR DERABLES Final Result Performing Organization Address [facility] Co de Phone Number [facility] [place] [address] * (ABNORMAL) Phosphorus (01/03/2025 12:06 AM CDT) Pathologist [facility] Phosphorus, pl 5.3(H) 2.3 - 4.5 mg/dL Blood 01/03/2025 12:0 6 AM CDT 01/03/2025 12:18 AM CDT Marsha Villarreal FIELD CONSULTANT LAB BLOOD ORDERABLES Final Re sult Performing Organization Address [facility] Co de Phone Number [facility] [place] [address] * (ABNORMAL) Magnesium (01/03/2025 12:06 AM CDT) Magnesium 2.6(H) 1.4 - 2.5 mg/dL Blood 01/03/2025 12:0 6 AM CDT 01/03/2025 12:18 AM CDT Mrasha Villarreal NP LAB BLOOD ORDERABLES Final Re sult Performing Organization Address [facility] de Phone Number [facility] [address] [facility] Department [place] [address] * (ABNORMAL) Basic metabolic panel (01/03/2025 12:06 AM CDT) Pathologist [facility] Sodium 136 135 - 145 mmol/L Potassium, pl 3.8 3.3 - 4.9 mmol/L [facility] Chloride 98 97 - 110 mmol/L [facility] CO2 24 22 - 32 mmol/L [facility] Anion gap 14 2 - 15 mmol/L [facility] BUN 43(H) 6 - 25 mg/dL [facility] Creatinine 2.01(H) 0.80 - 1.30 mg/dL [facility] Glucose 142 70 - 199 mg/dL [facility] Comment: Interpretive Data Fasting glucose >/= 126 mg/dl is diagnostic for diabetes. Fasting is defined as no caloric intake for at least 8 hours. Fasting glucose between 100 mg/dl to 125 mg/dl is diagnostic of prediabetes. In a patient with classic symptoms of hyperglycemia or hyperglycemic crisis, a random glucose >/= 200 mg/dl is diagnostic for diabetes. In the absence of unequivocal hyperglycemia, results should be confirmed by repeat testing. The classification and Diagnosis of Diabetes Diabetes Care 202; 46: S19-S40. Current interpretive data was last revised 2022. Calcium 8.4(L) 8.5 - 10.3 mg/dL [facility] Blood 01/03/2025 12:0 6 AM CDT 01/03/2025 12:18 AM CDT Marsha Villarreal NP LAB BLOOD ORDERABLES Final Re sult Performing Organization Address [facility] Co de Phone Number [facility] [place] [address] * POCT glucose (01/02/2025 7:52 PM CDT) Glucose, POC 125 70 - 199 mg/dL Blood 01/02/2025 7:52 PM CDT 01/02/2025 7:52 PM CDT us Parth Dalton MD LAB POCT ORDERABLES - DEVICE Final Result Performing Organization Address [facility] Co de Phone Number [facility] [place] [address] * Oxyhemoglobin, central venous (01/02/2025 7:50 PM CDT) Oxyhemoglobin, CV 67.3 % Comment: Interpretive Data No reference range established. Current interpretive data was last revised 2019. Blood 01/02/2025 7:50 PM CDT 01/02/2025 7:57 PM CDT us Magy Kaur FIELD CONSULTANT LAB BLOOD ORDERABLES F inal Result Performing Organization Address [facility] Co de Phone Number [facility] Department [place] [address] * Potassium, whole blood (01/02/2025 7:50 PM CDT) Potassium, bld 4.3 3.3 - 4.9 mmol/L Blood 01/02/2025 7:50 PM CDT 01/02/2025 7:57 PM CDT us Jyotsna Salazar FIELD CONSULTANT LAB BLOOD ORDERABLES Final Result Performing Organization Address [facility] Co de Phone Number [facility] Department [place] [address] * Critical Care (01/02/2025 7:47 PM CDT) Narrative Reinaldo Griffin MD - 01/02/2025 7:47 PM CDT Reinaldo Griffin MD 01/05/2025 9:02 AM Critical Care Performed by: Nicole Ho NP Authorized by: Nicole Ho NP CRITICAL CARE: Team: 56 CTICU Shift: PM Level of Billing: Critical Care My time spent with this patient was 60 minutes: Critical Provider Statement: I have seen and examined the patient on this day of service. I have reviewed and confirmed the history, physical exam, laboratory and radiologic data as documented in the signed ICU note. I have reviewed and discussed my treatment plan with the ICU team and other medical/revenue cycle consultant staff, making frequent assessments and decisions regarding this patient's complex medical care. Critical Care time was exclusive of time spent performing separately billed procedures, treating other patients, and teaching. This time was in addition to and separate from critical care provided by other practitioners in my group on this day of service. Critical Care was necessary to treat or prevent imminent or life-threatening deterioration of the following conditions: us Nicole Ho NP IN CLINIC/BEDSIDE JUAN IVY Final Result * XR Chest 1 View (01/02/2025 6:08 PM CDT) Anatomical Region Laterality Modality Body, Chest N/A Computed Radiogr aphy 01/03/2025 9:12 AM CDT Impressions 01/03/2025 10:40 AM CDT Comparison is made with multiple prior exams, most recently radiograph dated 01/01/2025. Tracheostomy remains in place. Gastric tube projects caudally below the diaphragm, the distal tip is out of the [id number]. Right internal jugular approach central venous catheter terminates in the superior vena cava. Right atrial appendage clip in place. Patient is status post transverse sternotomy with sternal plates and screws. Stable left-sided chest tube. Bibasilar atelectasis. No pleural effusion or pneumothorax. The heart and mediastinal contours are stable. Dictated by: Jane Rose M.D. The radiology attending physician has personally reviewed this study, and had reviewed and/or edited this written report and agrees with it. Electronically signed by: José Miguel Shore M.D. Narrative 01/03/2025 10:40 AM CDT EXAMINATION: 1 view chest radiograph Procedure Note José Miguel Shore MD - 01/03/2025 EXAMINATION: 1 view chest radiograph IMPRESSION: Comparison is made with multiple prior exams, most recently radiograph dated 01/01/2025. Tracheostomy remains in place. Gastric tube projects caudally below the diaphragm, the distal tip is out of the [id number]. Right internal jugular approach central venous catheter terminates in the superior vena cava. Right atrial appendage clip in place. Patient is status post transverse sternotomy with sternal plates and screws. Stable left-sided chest tube. Bibasilar atelectasis. No pleural effusion or pneumothorax. The heart and mediastinal contours are stable. Dictated by: Jane Rose M.D. The radiology attending physician has personally reviewed this study, and had reviewed and/or edited this written report and agrees with it. Electronically signed by: José Miguel Shore M.D. Devyn Palacios FIELD CONSULTANT IMG XR PROCEDURES Final Resul t * POCT glucose (01/02/2025 3:05 PM CDT) Glucose, POC 93 70 - 199 mg/dL Blood 01/02/2025 3:05 PM CDT 01/02/2025 3:05 PM CDT Parth Dalton MD LAB POCT ORDERABLES - DEVICE Final Result [facility] [address] [place] [address] * Oxyhemoglobin, central venous (01/02/2025 3:01 PM CDT) Oxyhemoglobin, CV 44.0 % Comment: Interpretive Data No reference range established. Current interpretive data was last revised 2019. Blood 01/02/2025 3:01 PM CDT 01/02/2025 3:23 PM CDT Magy Kaur FIELD CONSULTANT LAB BLOOD ORDERABLES F inal Result Performing Organization Address [facility] de Phone Number [facility] [place] [address] * Potassium, whole blood (01/02/2025 3:01 PM CDT) Potassium, bld 4.5 3.3 - 4.9 mmol/L Blood 01/02/2025 3:01 PM CDT 01/02/2025 3:22 PM CDT Jyotsna Salazar FIELD CONSULTANT LAB BLOOD ORDERABLES Final Result Performing Organization Address [facility] de Phone Number [facility] [place] [address] * POCT glucose (01/02/2025 11:35 AM CDT) Glucose, POC 88 70 - 199 mg/dL Blood 01/02/2025 11:3 5 AM CDT 01/02/2025 11:35 AM CDT Parth Dalton MD LAB POCT ORDERABLES - DEVICE Final Result Performing Organization Address [facility] de Phone Number [facility] [place] [address] * Oxyhemoglobin, central venous (01/02/2025 11:01 AM CDT) Oxyhemoglobin, CV 46.3 % Comment: Interpretive Data No reference range established. Current interpretive data was last revised 2019. Blood 01/02/2025 11:0 1 AM CDT 01/02/2025 11:05 AM CDT Magy Kaur FIELD CONSULTANT LAB BLOOD ORDERABLES F inal Result Performing Organization Address [facility] Co de Phone Number [facility] [place] [address] * Potassium, whole blood (01/02/2025 11:01 AM CDT) Potassium, bld 4.8 3.3 - 4.9 mmol/L Blood 01/02/2025 11:0 1 AM CDT 01/02/2025 11:05 AM CDT us Jyotsna Salazar FIELD CONSULTANT LAB BLOOD ORDERABLES Final Result Performing Organization Address [facility] de Phone Number [facility] [place] [address] * (ABNORMAL) Urinalysis reflex to microscopic (01/02/2025 9:53 AM CDT) Color, ur Yellow Yellow Clarity, ur Clear Clear [facility] Specific gravity, ur 1.038(H) 1.003 - 1.030 [facility] pH, urine 6.0 [facility] Comment: Interpretive Data U rine pH is affected by diet, medications, systemic acid-base disturbances, and renal tubular function. pH may affect urinary stone formation. For example, urine pH below 6.0 may help reduce the tendency for calcium phosphate stones and pH greater than 6.0 may reduce the tendency for uric acid stone formation. Source: [facility] [employer] Current Interpretive Data was last revised on 2017 Protein, ur ql 2+(A) Negative [facility] Glucose, ur ql Negative Negative [facility] Ketones, ur 1+(A) Negative [facility] Bilirubin, ur Negative Negative [facility] Blood, ur 2+(A) Negative [facility] Urobilinogen, ur <2.0 <2.0 mg/dL [facility] Nitrite, ur Negative Negative [facility] Leukocyte esterase, ur Negative Negative [facility] UA reflex comment Reflex to microscopic UA will be performed. [facility] Urine 01/02/2025 9:53 AM CDT 01/02/2025 10:00 AM CDT us Marla Francois FIELD CONSULTANT LAB URINE ORDERABLES Raquel l Result Performing Organization Address [facility] de Phone Number [facility] [place] [address] * (ABNORMAL) Urinalysis, microscopic only (01/02/2025 9:53 AM CDT) WBC, ur 0-5 0 - 5 /HPF RBC, ur 11-20(A) 0 - 2 /HPF [facility] Epithelial cells, squamous, ur 1-5 0 - 5 /HPF [facility] Mucous, ur Present(A) [facility] Hyaline casts, ur 21-50(A) 0 - 10 /LPF [facility] Urine 01/02/2025 9:53 AM CDT 01/02/2025 10:00 AM CDT us Marla Francois FIELD CONSULTANT LAB URINE ORDERABLES Raquel l Result Performing Organization Address [facility] de Phone Number [facility] [place] [address] * POCT glucose (01/02/2025 8:33 AM CDT) Glucose, POC 80 70 - 199 mg/dL Blood 01/02/2025 8:33 AM CDT 01/02/2025 8:33 AM CDT us Parth Dalton MD LAB POCT ORDERABLES - DEVICE Final Result Performing Organization Address [facility] Co de Phone Number [facility] Department [place] [address] * Critical Care (01/02/2025 7:09 AM CDT) Narrative Reinaldo Griffin MD - 01/02/2025 7:09 AM CDT Reinaldo Griffin MD 01/02/2025 6:24 PM Critical Care Performed by: Marla Francois NP Authorized by: Marla Francois NP CRITICAL CARE: Team: 56 CTICU Shift: AM Level of Billing: Critical Care My time spent with this patient was 120 minutes: Critical Provider Statement: I have seen and examined the patient on this day of service. I have reviewed and confirmed the history, physical exam, laboratory and radiologic data as documented in the signed ICU note. I have reviewed and discussed my treatment plan with the ICU team and other medical/revenue cycle consultant staff, making frequent assessments and decisions regarding this patient's complex medical care. Critical Care time was exclusive of time spent performing separately billed procedures, treating other patients, and teaching. This time was in addition to and separate from critical care provided by other practitioners in my group on this day of service. Critical Care was necessary to treat or prevent imminent or life-threatening deterioration of the following conditions: I spent time reviewing and interpreting data from bedside monitors, laboratory results, and imaging, I spent time discussing the management of this critically ill patient with consultants and the medical staff and I spent time documenting in the medical record us Marla Francois FIELD CONSULTANT IN CLINIC/BEDSIDE ORDERAB LES Final Result * Potassium, whole blood (01/02/2025 6:29 AM CDT) Potassium, bld 3.8 3.3 - 4.9 mmol/L Blood 01/02/2025 6:29 AM CDT 01/02/2025 6:33 AM CDT us Jyotsna Salazar FIELD CONSULTANT LAB BLOOD ORDERABLES Final Result [facility] [address] [facility] Department [place] [address] * POCT glucose (01/02/2025 4:03 AM CDT) Glucose, POC 93 70 - 199 mg/dL Blood 01/02/2025 4:03 AM CDT 01/02/2025 4:03 AM CDT Parth Dalton MD LAB POCT ORDERABLES - DEVICE Final Result Performing Organization Address [facility] Co de Phone Number [facility] [place] [address] * Oxyhemoglobin, central venous (01/02/2025 12:01 AM CDT) [facility] Oxyhemoglobin, CV 61.9 % Comment: Interpretive Data No reference range established. Current interpretive data was last revised 2019. Blood 01/02/2025 12:0 1 AM CDT 01/02/2025 12:29 AM CDT Magy Kaur NP LAB BLOOD ORDERABLES F inal Result Performing Organization Address [facility] de Phone Number [facility] [place] [address] * Potassium, whole blood (01/02/2025 12:01 AM CDT) [facility] Potassium, bld 3.6 3.3 - 4.9 mmol/L Blood 01/02/2025 12:0 1 AM CDT 01/02/2025 12:29 AM CDT Parth Dalton MD LAB BLOOD ORDERABLES Final Re sult Performing Organization Address [facility] Co de Phone Number [facility] [place] [address] * (ABNORMAL) eGFR (01/02/2025 12:01 AM CDT) Pathologist [facility] eGFR 46(L) >=60 mL/min/1. 73 m2 Comment: Interpretive Data Reference Interval Normal >/= 90 mL/min/1.73m2 Mildly decreased* 60 - 89 mL/min/1.73m2 Mildly to moderately decreased 45 - 59 mL/min/1.73m2 Moderately to severely decreased 30 - 44 mL/min/1.73m2 Severely decreased 15 - 29 mL/min/1.73m2 Kidney Failure < 15 mL/min/1.73m2 *Relative to young adult level Estimated glomerular filtration rate is determined by the 2020 CKD-EPI equation recommended by the National [employer] (A Unifying Approach to GFR Estimation: Recommendations of the NKF-ASK Task Force on Reassessing the Inclusion of Race in Diagnosing Kidney Disease, JASN 2020). The CKD-EPI equation should not be used for patients with unstable renal function and has not been validated in children and those over 70. Current interpretive data was last reviewed 2021. Blood 01/02/2025 12:0 1 AM CDT 01/02/2025 12:38 AM CDT us Marsha Villarreal FIELD CONSULTANT LAB BLOOD ORDERABLES Final Re sult [facility] [address] Department [place] [address] * (ABNORMAL) CBC without differential (01/02/2025 12:01 AM CDT) [facility] WBC 3.74(L) 3.80 - 9.90 K/cumm Hgb 8.6(L) 13.0 - 17.5 g/dL [facility] Hct 25.2(L) 38.9 - 50.3 % [facility] Plt 138(L) 150 - 400 K/cumm [facility] MPV 10.5 9.1 - 12.3 fL [facility] RBC 2.51(L) 4.30 - 5.80 M/cumm [facility] MCV 100.4(H) 81.3 - 96.4 fL [facility] MCH 34.3(H) 27.1 - 33.3 pg [facility] MCHC 34.1 32.3 - 35.7 g/dL [facility] RDW CV 14.4 11.1 - 14.9 % [facility] RDW SD 52.6(H) 35.7 - 48.1 fL [facility] NRBC abs 0.02(H) 0.00 - 0.01 K/cumm [facility] Blood 01/02/2025 12:0 1 AM CDT 01/02/2025 12:40 AM CDT Rosa Beltran FIELD CONSULTANT LAB BLOOD ORDERABLES Final Re sult Performing Organization Address [facility] Co de Phone Number [facility] [place] [address] * (ABNORMAL) Phosphorus (01/02/2025 12:01 AM CDT) Phosphorus, pl 5.7(H) 2.3 - 4.5 mg/dL Blood 01/02/2025 12:0 1 AM CDT 01/02/2025 12:38 AM CDT Marsha Villarreal FIELD CONSULTANT LAB BLOOD ORDERABLES Final Re sult Performing Organization Address [facility] Co de Phone Number [facility] [place] [address] * Magnesium (01/02/2025 12:01 AM CDT) Magnesium 2.1 1.4 - 2.5 mg/dL Blood 01/02/2025 12:0 1 AM CDT 01/02/2025 12:38 AM CDT Marsha Villarreal FIELD CONSULTANT LAB BLOOD ORDERABLES Final Re sult Performing Organization Address [facility] Co de Phone Number [facility] [place] [address] * (ABNORMAL) Basic metabolic panel (01/02/2025 12:01 AM CDT) Sodium 138 135 - 145 mmol/L Potassium, pl 3.6 3.3 - 4.9 mmol/L [facility] Chloride 101 97 - 110 mmol/L [facility] CO2 23 22 - 32 mmol/L [facility] Anion gap 14 2 - 15 mmol/L [facility] BUN 33(H) 6 - 25 mg/dL [facility] Creatinine 1.58(H) 0.80 - 1.30 mg/dL [facility] Glucose 103 70 - 199 mg/dL [facility] Comment: Interpretive Data Fasting glucose >/= 126 mg/dl is diagnostic for diabetes. Fasting is defined as no caloric intake for at least 8 hours. Fasting glucose between 100 mg/dl to 125 mg/dl is diagnostic of prediabetes. In a patient with classic symptoms of hyperglycemia or hyperglycemic crisis, a random glucose >/= 200 mg/dl is diagnostic for diabetes. In the absence of unequivocal hyperglycemia, results should be confirmed by repeat testing. The classification and Diagnosis of Diabetes Diabetes Care 2021; 46: S19-S40. Current interpretive data was last revised 2022. Calcium 8.4(L) 8.5 - 10.3 mg/dL [facility] Blood 01/02/2025 12:0 1 AM CDT 01/02/2025 12:38 AM CDT us Marsha Villarreal NP LAB BLOOD ORDERABLES Final Re sult [facility] [address] Department [place] [address] * POCT glucose (01/01/2025 11:57 PM CDT) Pathologist [facility] Glucose, POC 105 70 - 199 mg/dL Blood 01/01/2025 11:5 7 PM CDT 01/01/2025 11:57 PM CDT Parth Dalton MD LAB POCT ORDERABLES - DEVICE Final Result [facility] [address] Department [place] [address] * XR Chest 1 View (01/01/2025 9:18 PM CDT) Anatomical Region Laterality Modality Body, Chest N/A Computed Radiogr aphy 01/02/2025 9:25 AM CDT Impressions 01/02/2025 11:05 AM CDT Comparison is made with multiple prior exams, most recently radiograph dated 12/31/2024. Patient is rotated. Patient is status post tracheostomy. Gastric tube extends into the stomach, the tip terminates out of the [id number]. Right internal jugular vein approach intravenous catheter terminates in the superior vena cava. Patient is status post median sternotomy with sternal plates and screws, and left atrial appendage exclusion. Left chest tube in unchanged position. Interval removal of additional chest tube previously overlying the mediastinum. Mild left basilar atelectasis, slightly decreased from prior. No right lung consolidation. No definite pleural effusion. No pneumothorax. Stable enlarged cardiac silhouette. Dictated by: Jane Rose M.D. The radiology attending physician has personally reviewed this study, and had reviewed and/or edited this written report and agrees with it. Electronically signed by: Geni Mckeon M.D. Narrative 01/02/2025 11:05 AM CDT EXAMINATION: 1 view chest radiograph Procedure Note Geni Mckeon MD - 01/02/2025 EXAMINATION: 1 view chest radiograph IMPRESSION: Comparison is made with multiple prior exams, most recently radiograph dated 12/31/2024. Patient is rotated. Patient is status post tracheostomy. Gastric tube extends into the stomach, the tip terminates out of the [id number]. Right internal jugular vein approach intravenous catheter terminates in the superior vena cava. Patient is status post median sternotomy with sternal plates and screws, and left atrial appendage exclusion. Left chest tube in unchanged position. Interval removal of additional chest tube previously overlying the mediastinum. Mild left basilar atelectasis, slightly decreased from prior. No right lung consolidation. No definite pleural effusion. No pneumothorax. Stable enlarged cardiac silhouette. Dictated by: Jane Rose M.D. The radiology attending physician has personally reviewed this study, and had reviewed and/or edited this written report and agrees with it. Electronically signed by: Geni Mckeon M.D. us Jose Lwhitney Rupinder Palacios FIELD CONSULTANT IMG XR PROCEDURES Final Resul t * Critical Care (01/01/2025 9:03 PM CDT) Narrative Reinaldo Griffin MD - 01/01/2025 9:03 PM CDT Reinaldo Griffin MD 01/02/2025 5:02 PM Critical Care Performed by: Nicole Ho NP Authorized by: Nicole Ho NP CRITICAL CARE: Team: 56 CTICU Shift: PM Level of Billing: Critical Care My time spent with this patient was 50 minutes: Critical Provider Statement: I have seen and examined the patient on this day of service. I have reviewed and confirmed the history, physical exam, laboratory and radiologic data as documented in the signed ICU note. I have reviewed and discussed my treatment plan with the ICU team and other medical/revenue cycle consultant staff, making frequent assessments and decisions regarding this patient's complex medical care. Critical Care time was exclusive of time spent performing separately billed procedures, treating other patients, and teaching. This time was in addition to and separate from critical care provided by other practitioners in my group on this day of service. Critical Care was necessary to treat or prevent imminent or life-threatening deterioration of the following conditions: us Nicole Ho NP IN CLINIC/BEDSIDE JUAN IVY Final Result * POCT glucose (01/01/2025 7:47 PM CDT) Glucose, POC 105 70 - 199 mg/dL Blood 01/01/2025 7:47 PM CDT 01/01/2025 7:47 PM CDT Parth Dalton MD LAB POCT ORDERABLES - DEVICE Final Result [facility] [facility] Department [place] [address] * Potassium, whole blood (01/01/2025 6:06 PM CDT) [facility] Potassium, bld 3.9 3.3 - 4.9 mmol/L Blood 01/01/2025 6:06 PM CDT 01/01/2025 6:12 PM CDT us Jyotsna Salazar FIELD CONSULTANT LAB BLOOD ORDERABLES Final Result Performing Organization Address City/[facility] Co de Phone Number [facility] [place] [address] * POCT glucose (01/01/2025 5:06 PM CDT) [facility] Glucose, POC 116 70 - 199 mg/dL Blood 01/01/2025 5:06 PM CDT 01/01/2025 5:06 PM CDT us Parth Dalton MD LAB POCT ORDERABLES - DEVICE Final Result Performing Organization Address [facility] Co de Phone Number [facility] [place] [address] * (ABNORMAL) POC Blood Gas and Chemistries, Venous - (01/01/2025 12:18 PM CDT) [facility] pH, Isak POC 7.38 7.32 - 7.43 pCO2, isak POC 38(L) 40 - 50 mmHg [facility] pO2, isak POC 30 mmHg [facility] Na, POC 135 135 - 145 mmol/L [facility] K POC 3.8 3.3 - 4.9 mmol/L [facility] Comment: Interpretive Data Not all point of care methods assess for hemolysis. Confirm with instrument and retest K+ if not consistent with clinical signs and symptoms. Current Interpretive Data was last revised on 2023. Cl, POC 105 97 - 110 mmol/L [facility] Glucose, POC 118 70 - 199 mg/dL [facility] Lactate POC 1.5 0.7 - 2.0 mmol/L [facility] O2 Sat, Isak POC (Felipe) Incalculable % [facility] Base excess, POC -2.3 mmol/L [facility] HCO3, Isak POC 22 20 - 30 mmol/L [facility] Hct, POC Incalculable 41.4 - 51.6 % [facility] Total Hb, POC Incalculable 13.8 - 17.2 g/dL [facility] Blood 01/01/2025 12:1 8 PM CDT 01/01/2025 12:18 PM CDT Parth Dalton MD LAB POCT ORDERABLES - DEVICE Final Result Performing Organization Address [facility] de Phone Number [facility] Department [place] [address] * POCT glucose (01/01/2025 11:26 AM CDT) [facility] Glucose, POC 114 70 - 199 mg/dL Blood 01/01/2025 11:2 6 AM CDT 01/01/2025 11:26 AM CDT Parth Dalton MD LAB POCT ORDERABLES - DEVICE Final Result Performing Organization Address [facility] Co de Phone Number [facility] Department [place] [address] * Critical Care (01/01/2025 8:11 AM CDT) Narrative Reinaldo Griffin MD - 01/01/2025 8:11 AM CDT Reinaldo Griffin MD 01/02/2025 5:02 PM Critical Care Performed by: Marla Francois NP Authorized by: Marla Francois NP CRITICAL CARE: Team: 56 CTICU Shift: AM Level of Billing: Critical Care My time spent with this patient was 95 minutes: Critical Provider Statement: I have seen and examined the patient on this day of service. I have reviewed and confirmed the history, physical exam, laboratory and radiologic data as documented in the signed ICU note. I have reviewed and discussed my treatment plan with the ICU team and other medical/revenue cycle consultant staff, making frequent assessments and decisions regarding this patient's complex medical care. Critical Care time was exclusive of time spent performing separately billed procedures, treating other patients, and teaching. This time was in addition to and separate from critical care provided by other practitioners in my group on this day of service. Critical Care was necessary to treat or prevent imminent or life-threatening deterioration of the following conditions: I spent time reviewing and interpreting data from bedside monitors, laboratory results, and imaging, I spent time discussing the management of this critically ill patient with consultants and the medical staff and I spent time documenting in the medical record Marla Francois FIELD CONSULTANT IN CLINIC/BEDSIDE ORDERAB LES Final Result * POCT glucose (01/01/2025 7:33 AM CDT) Glucose, POC 99 70 - 199 mg/dL Blood 01/01/2025 7:33 AM CDT 01/01/2025 7:33 AM CDT us Parth Dalton MD LAB POCT ORDERABLES - DEVICE Final Result Performing Organization Address [facility] Co de Phone Number [facility] [employer] [place] [address] * POCT glucose (01/01/2025 4:22 AM CDT) Glucose, POC 117 70 - 199 mg/dL Blood 01/01/2025 4:22 AM CDT 01/01/2025 4:22 AM CDT us Parth Dalton MD LAB POCT ORDERABLES - DEVICE Final Result Performing Organization Address [facility]/ZIP Co de Phone Number [facility] [employer] [place] [address] * Oxyhemoglobin, central venous (01/01/2025 4:21 AM CDT) Oxyhemoglobin, CV 67.4 % Comment: Interpretive Data No reference range established. Current interpretive data was last revised 2019. Blood 01/01/2025 4:21 AM CDT 01/01/2025 4:33 AM CDT Magy Kaur NP LAB BLOOD ORDERABLES F inal Result Performing Organization Address [facility] [place] [address] * Oxyhemoglobin, central venous (12/31/2024 11:43 PM CDT) Oxyhemoglobin, CV 60.7 % Comment: Interpretive Data No reference range established. Current interpretive data was last revised 2019. Blood 12/31/2024 11:4 3 PM CDT 01/01/2025 12:04 AM CDT Magy Kaur NP LAB BLOOD ORDERABLES F inal Result Performing Organization Address [facility] Co de Phone Number [facility] [place] [address] * Potassium, whole blood (12/31/2024 11:43 PM CDT) Potassium, bld 4.4 3.3 - 4.9 mmol/L Blood 12/31/2024 11:4 3 PM CDT 01/01/2025 12:04 AM CDT Parth Dalton MD LAB BLOOD ORDERABLES Final Re sult Performing Organization Address City/[facility] Co de Phone Number [facility] [place] [address] * (ABNORMAL) eGFR (12/31/2024 11:43 PM CDT) Pathologist [facility] eGFR 56(L) >=60 mL/min/1. 73 m2 Comment: Interpretive Data Reference Interval Normal >/= 90 mL/min/1.73m2 Mildly decreased* 60 - 89 mL/min/1.73m2 Mildly to moderately decreased 45 - 59 mL/min/1.73m2 Moderately to severely decreased 30 - 44 mL/min/1.73m2 Severely decreased 15 - 29 mL/min/1.73m2 Kidney Failure < 15 mL/min/1.73m2 *Relative to young adult level Estimated glomerular filtration rate is determined by the 2020 CKD-EPI equation recommended by the National Kidney Foundation (A Unifying Approach to GFR Estimation: Recommendations of the NKF-ASK Task Force on Reassessing the Inclusion of Race in Diagnosing Kidney Disease, JASN 2020). The CKD-EPI equation should not be used for patients with unstable renal function and has not been validated in children and those over 70. Current interpretive data was last reviewed 2021. Blood 12/31/2024 11:4 3 PM CDT 01/01/2025 12:08 AM CDT Marsha Villarreal FIELD CONSULTANT LAB BLOOD ORDERABLES Final Re sult [facility] Department [place] [address] * (ABNORMAL) CBC without differential (12/31/2024 11:43 PM CDT) Pathologist [facility] WBC 5.69 3.80 - 9.90 K/cumm Hgb 9.0(L) 13.0 - 17.5 g/dL [facility] Hct 26.8(L) 38.9 - 50.3 % [facility] Plt 108(L) 150 - 400 K/cumm [facility] MPV 10.8 9.1 - 12.3 fL [facility] RBC 2.65(L) 4.30 - 5.80 M/cumm [facility] MCV 101.1(H) 81.3 - 96.4 fL [facility] MCH 34.0(H) 27.1 - 33.3 pg [facility] MCHC 33.6 32.3 - 35.7 g/dL [facility] RDW CV 14.4 11.1 - 14.9 % [facility] RDW SD 53.4(H) 35.7 - 48.1 fL [facility] NRBC abs 0.00 0.00 - 0.01 K/cumm [facility] Blood 12/31/2024 11:4 3 PM CDT 01/01/2025 12:08 AM CDT Rosa Beltran FIELD CONSULTANT LAB BLOOD ORDERABLES Final Re sult Performing Organization Address City/[facility] Co de Phone Number [facility] [place] [address] * Phosphorus (12/31/2024 11:43 PM CDT) Phosphorus, pl 4.4 2.3 - 4.5 mg/dL Blood 12/31/2024 11:4 3 PM CDT 01/01/2025 12:08 AM CDT Marsha Villarreal FIELD CONSULTANT LAB BLOOD ORDERABLES Final Re sult Performing Organization Address [facility] Co de Phone Number [facility] Department [place] [address] * Magnesium (12/31/2024 11:43 PM CDT) Magnesium 2.3 1.4 - 2.5 mg/dL Blood 12/31/2024 11:4 3 PM CDT 01/01/2025 12:08 AM CDT Marsha Villarreal FIELD CONSULTANT LAB BLOOD ORDERABLES Final Re sult Performing Organization Address City/[facility] Co de Phone Number [facility] Department [place] [address] * (ABNORMAL) Basic metabolic panel (12/31/2024 11:43 PM CDT) [facility] Sodium 137 135 - 145 mmol/L Potassium, pl 4.5 3.3 - 4.9 mmol/L [facility] Chloride 103 97 - 110 mmol/L [facility] CO2 23 22 - 32 mmol/L [facility] Anion gap 11 2 - 15 mmol/L [facility] BUN 25 6 - 25 mg/dL [facility] Creatinine 1.33(H) 0.80 - 1.30 mg/dL [facility] Glucose 124 70 - 199 mg/dL [facility] Comment: Interpretive Data Fasting glucose >/= 126 mg/dl is diagnostic for diabetes. Fasting is defined as no caloric intake for at least 8 hours. Fasting glucose between 100 mg/dl to 125 mg/dl is diagnostic of prediabetes. In a patient with classic symptoms of hyperglycemia or hyperglycemic crisis, a random glucose >/= 200 mg/dl is diagnostic for diabetes. In the absence of unequivocal hyperglycemia, results should be confirmed by repeat testing. The classification and Diagnosis of Diabetes Diabetes Care 2021; 46: S19-S40. Current interpretive data was last revised 2022. Calcium 8.4(L) 8.5 - 10.3 mg/dL [facility] Blood 12/31/2024 11:4 3 PM CDT 01/01/2025 12:08 AM CDT Marsha Villarreal FIELD CONSULTANT LAB BLOOD ORDERABLES Final Re sult [facility] Department [place] [address] * POCT glucose (12/31/2024 11:42 PM CDT) [facility] Glucose, POC 123 70 - 199 mg/dL Blood 12/31/2024 11:4 2 PM CDT 12/31/2024 11:42 PM CDT Parth Dalton MD LAB POCT ORDERABLES - DEVICE Final Result Performing Organization Address [facility] de Phone Number [facility] [place] [address] * Oxyhemoglobin, central venous (12/31/2024 8:39 PM CDT) Oxyhemoglobin, CV 67.7 % Comment: Interpretive Data No reference range established. Current interpretive data was last revised 2019. Blood 12/31/2024 8:39 PM CDT 12/31/2024 8:53 PM CDT Magy Kaur NP LAB BLOOD ORDERABLES F inal Result Performing Organization Address [facility] de Phone Number [facility] [place] [address] * POCT glucose (12/31/2024 8:36 PM CDT) Glucose, POC 127 70 - 199 mg/dL Blood 12/31/2024 8:36 PM CDT 12/31/2024 8:36 PM CDT Parth Dalton MD LAB POCT ORDERABLES - DEVICE Final Result Performing Organization Address [facility] de Phone Number [facility] [place] [address] * Critical Care (12/31/2024 7:30 PM CDT) Narrative Reinaldo Griffin MD - 12/31/2024 7:30 PM CDT Reinaldo Griffin MD 01/02/2025 5:02 PM Critical Care Performed by: Nicole Ho NP Authorized by: Nicole Ho NP CRITICAL CARE: Team: 56 CTICU Shift: PM Level of Billing: Critical Care My time spent with this patient was 70 minutes: Critical Provider Statement: I have seen and examined the patient on this day of service. I have reviewed and confirmed the history, physical exam, laboratory and radiologic data as documented in the signed ICU note. I have reviewed and discussed my treatment plan with the ICU team and other medical/revenue cycle consultant staff, making frequent assessments and decisions regarding this patient's complex medical care. Critical Care time was exclusive of time spent performing separately billed procedures, treating other patients, and teaching. This time was in addition to and separate from critical care provided by other practitioners in my group on this day of service. Critical Care was necessary to treat or prevent imminent or life-threatening deterioration of the following conditions: us Nicole Ho FIELD CONSULTANT IN CLINIC/BEDSIDE JUAN IVY Final Result * Oxyhemoglobin, central venous (12/31/2024 6:09 PM CDT) Oxyhemoglobin, CV 51.8 % Comment: Interpretive Data No reference range established. Current interpretive data was last revised 2019. Blood 12/31/2024 6:09 PM CDT 12/31/2024 6:20 PM CDT Magy Kaur FIELD CONSULTANT LAB BLOOD ORDERABLES F inal Result Performing Organization Address [facility] Co de Phone Number [facility] [place] [address] * Potassium, whole blood (12/31/2024 6:09 PM CDT) Potassium, bld 4.8 3.3 - 4.9 mmol/L Blood 12/31/2024 6:09 PM CDT 12/31/2024 6:20 PM CDT Jyotsna Salazar FIELD CONSULTANT LAB BLOOD ORDERABLES Final Result Performing Organization Address [facility] Co de Phone Number [facility] Department [place] [address] * HIT Antibodies with Reflex to Serotonin Release Assay (LEON) (12/31/2024 6:09 PM CDT) HIT antibodies Negative Negative HIT Ab CAESAR Units 0.39 0.00 - 0.99 units/mL [facility] Comment: A positive HIT Ab (heparin PF4 antibody CAESAR test) is extremely sensitive for heparin-induced thrombocytopenia (HIT), but not specific, since many patients exposed to heparin have positive antibody tests without developing HIT. Higher HIT Ab CAESAR Units are associated with a higher likelihood of a positive serotonin release assay (LEON) and a clinical course consistent with HIT. The 4T scoring system is a useful tool for pretest probability of HIT (Cuker et al, Blood 2012;120:4160). Both laboratory testing and clinical risk evaluation should be considered in determining an individual patient s risk of HIT. Blood 12/31/2024 6:09 PM CDT 12/31/2024 6:20 PM CDT Devyn Palacios FIELD CONSULTANT LAB BLOOD ORDERABLES Final Re sult [facility] Department [place] [address] * Blood culture Blood (12/31/2024 5:05 PM CDT) Report Final Report: No growth Blood 12/31/2024 5:05 PM CDT 12/31/2024 6:39 PM CDT Narrative [facility] - 01/05/2025 7:00 AM CDT Collection->Peripheral 1. Blood cultures are incubated for 4 days on a continuously monitored blood culture system. The first report of a negative culture is issued within 24 hours of receipt of the specimen in the laboratory. 2. Positive culture results are reported as soon as they are detected. 3. The most important factor for detection of microbes in the setting of bloodstream infection is the volume of blood submitted for culture. Failure to collect an optimal blood volume can result in false negative blood cultures. 4. For pediatric patients, the recommended blood volume to collect follows a weight based strategy. See the electronic test catalog for collection instructions. 5. For positive blood cultures, a rapid molecular test may be performed for organism identification using the [employer] blood culture identification panel for gram positive (BCID-GP) and gram negative (BCID-GN) organisms. This nucleic acid amplification test detects microbial DNA in positive blood culture broth. This assay has been cleared by the [place] Food and Drug Administration and its performance characteristics have been verified by the [facility] Microbiology Laboratory. For questions about this culture, contact the Microbiology Laboratory at [phone]. Interpretive data was last revised on 24. Devyn Palacios LAB MICROBIOLOGY - GENERAL OR DERABLES Final Result CYNTHIA MURPHY [facility] Department [place] [address] * Blood culture Blood (12/31/2024 5:05 PM CDT) Report Final Report: No growth Blood 12/31/2024 5:05 PM CDT 12/31/2024 6:39 PM CDT Narrative [facility] - 01/05/2025 7:00 AM CDT Collection->Peripheral 1. Blood cultures are incubated for 4 days on a continuously monitored blood culture system. The first report of a negative culture is issued within 24 hours of receipt of the specimen in the laboratory. 2. Positive culture results are reported as soon as they are detected. 3. The most important factor for detection of microbes in the setting of bloodstream infection is the volume of blood submitted for culture. Failure to collect an optimal blood volume can result in false negative blood cultures. 4. For pediatric patients, the recommended blood volume to collect follows a weight based strategy. See the electronic test catalog for collection instructions. 5. For positive blood cultures, a rapid molecular test may be performed for organism identification using the [employer] blood culture identification panel for gram positive (BCID-GP) and gram negative (BCID-GN) organisms. This nucleic acid amplification test detects microbial DNA in positive blood culture broth. This assay has been cleared by the [place] Food and Drug Administration and its performance characteristics have been verified by the [facility] Microbiology Laboratory. For questions about this culture, contact the Microbiology Laboratory at [phone]. Interpretive data was last revised on 24. [facility] LAB MICROBIOLOGY - GENERAL OR DERABLES Final Result CYNTHIA MURPHY [facility] Department [place] [address] * (ABNORMAL) Urinalysis reflex to microscopic (12/31/2024 4:35 PM CDT) Color, ur Straw Yellow Clarity, ur Clear Clear [facility] Specific gravity, ur 1.020 1.003 - 1.030 [facility] pH, urine 6.0 [facility] Comment: Interpretive Data U rine pH is affected by diet, medications, systemic acid-base disturbances, and renal tubular function. pH may affect urinary stone formation. For example, urine pH below 6.0 may help reduce the tendency for calcium phosphate stones and pH greater than 6.0 may reduce the tendency for uric acid stone formation. Source: [facility] Current Interpretive Data was last revised on 2017 Protein, ur ql 1+(A) Negative [facility] Glucose, ur ql Negative Negative [facility] Ketones, ur Negative Negative [facility] Bilirubin, ur Negative Negative [facility] Blood, ur 1+(A) Negative [facility] Urobilinogen, ur <2.0 <2.0 mg/dL [facility] Nitrite, ur Negative Negative [facility] Leukocyte esterase, ur Negative Negative [facility] UA reflex comment Reflex to microscopic UA will be performed. [facility] Urine 12/31/2024 4:35 PM CDT 12/31/2024 6:21 PM CDT [facility] NP LAB URINE ORDERABLES Final Re sult CYN[facility] MURPHY [facility] Department [place] [address] * (ABNORMAL) Urinalysis, microscopic only (12/31/2024 4:35 PM CDT) WBC, ur 0-5 0 - 5 /HPF RBC, ur 3-5(A) 0 - 2 /HPF [facility] Epithelial cells, squamous, ur 1-5 0 - 5 /HPF [facility] Bacteria, ur Trace(A) [facility] Mucous, ur Present(A) [facility] Hyaline casts, ur 11-20(A) 0 - 10 /LPF [facility] Granular casts, ur 11-20(A) 0 - 0 /LPF [facility] Urine 12/31/2024 4:35 PM CDT 12/31/2024 6:21 PM CDT Devyn Rupinder Palacios FIELD CONSULTANT LAB URINE ORDERABLES Final Re sult [facility] Department [place] [address] * Pneumonia PCR Tracheal aspirate (12/31/2024 4:34 PM CDT) Pathologist [facility] C. pneumoniae DNA Not Detected Not Detected Legionella pneumophila DNA Not Detected Not Detected [facility] M. pneumoniae DNA Not Detected Not Detected [facility] Adenovirus DNA Not Detected Not Detected [facility] Coronavirus (229E, OC43, HKU1, NL63) RNA Not Detected Not Detected [facility] Metapneumovirus RNA Not Detected Not Detected [facility] Rhinovirus/Enterov irus RNA Not Detected Not Detected [facility] Influenza A RNA Not Detected Not Detected [facility] Influenza B RNA Not Detected Not Detected [facility] Parainfluenza virus (1-4) RNA Not Detected Not Detected [facility] RSV RNA Not Detected Not Detected [facility] Tracheal aspirate 12/31/2024 4:34 PM CDT 12/31/2024 8:15 PM CDT Narrative [facility] - 12/31/2024 9:52 PM CDT The [employer] Pneumonia Panel is a multiplexed nucleic acid test capable of simultaneous detection and identification of multiple respiratory viruses and bacteria. This panel detects Adenovirus, coronaviruses (Coronavirus HKU1, Coronavirus NL63, Coronavirus 229E, and Coronavirus OC43), Influenza A, Influenza B, Human metapneumovirus, Parainfluenza (1-4), RSV, Rhinovirus/Enterovirus, Chlamydia pneumoniae, Mycoplasma pneumoniae, and Legionella pneumophila. Additional aerobic bacterial targets are reported with the accompanying culture results with the same accession number. Rhinovirus and Enterovirus are genetically similar and cannot be reliably differentiated with this method. Negative adenovirus results should be confirmed by an alternative methodology (i.e. standalone PCR) if the suspicion for adenovirus infection is high. The results of this test must be considered in the clinical context of the patient and should not be used as the sole basis for diagnosis, treatment, or other management decisions. Negative results in the setting of a respiratory illness may be due to infection with pathogens that are not detected by this test. Positive results do not rule out infection/co-infection with other organisms. The [employer] Pneumonia Panel is FDA cleared for lower respiratory tract specimens. The performance characteristics of this assay have been determined by [facility]. Current interpretive data was last revised on 2024. [facility] Rupinder Aaronng FIELD CONSULTANT LAB MICROBIOLOGY - GENERAL OR DERABLES Final Result [facility] [address] Department [place] [address] * (ABNORMAL) Pneumonia PCR with aerobic culture and Gram stain Tracheal aspirate (12/31/2024 4:34 PM CDT) Direct Specimen Exam Molecular Analysis: Greater than or equal to 10^7 copies/mL Escherichia coli Greater than or equal to 10^7 copies/mL Pseudomonas aeruginosa 10^6 copies/mL Klebsiella oxytoca Correlation of molecular analysis with final culture results is recommended. Direct Specimen Exam Stain: Rare polymorphonuclear leukocytes seen. Few squamous epithelial cells seen. Abundant mixed bacterial katja seen on Gram stain. Predominant organism seen on Gram stain: Gram Negative Bacilli [facility] Report Final Report: Greater than or equal to 100,000 colonies/ml of Escherichia coli Greater than or equal to 100,000 colonies/ml of Pseudomonas aeruginosa Plus growth of clinically insignificant bacterial katja. (.) [facility] Organism ESCHERICHIA COLI [facility] Organism PSEUDOMONAS AERUGINOSA [facility] Organism PLUS GROWTH OF CLINICALLY INSIGNIFICANT KATJA. [facility] Tracheal aspirate 12/31/2024 4:34 PM CDT 12/31/2024 6:04 PM CDT Narrative [facility] - 01/03/2025 2:38 PM CDT When rapid molecular testing results are reported, testing completed using the [employer] Pneumonia Panel. This molecular assay detects: Acinetobacter calcoaceticus-baumannii complex, Enterobacter cloacae complex, Escherichia coli, Haemophilus influenzae, Enterobacter (Klebsiella) aerogenes, Klebsiella oxytoca, Klebsiella pneumoniae group, Moraxella catarrhalis, Proteus spp., Pseudomonas aeruginosa, Serratia marcescens, Staphylococcus aureus, Streptococcus agalactiae, Streptococcus pneumoniae, and Streptococcus pyogenes. These bacteria are detected and reported semi-quantitatively with bins representing approximately 10^4, 10^5, 10^6, or greater than or equal to 10^7 genomic copies of bacterial nucleic acid per mL (copies/mL) of specimen. These quantities are reported to aid in estimating the relative abundance of organism(s) detected within the specimen and to correlate these results with culture results. For Staphylococcus aureus, mecA/C and MREJ genes are evaluated to predict methicillin resistance or susceptibility. For Gram-negative bacteria, the beta-lactamases CTX-M, IMP, KPC, NDM, VIM and OXA-48-like are evaluated and reported if detected. For Gram-negative organisms, the absence of detection of resistance markers does not exclude resistance. Correlation with final culture results and susceptibility testing is recommended. The [employer] Pneumonia Panel is cleared by the [place] Food and Drug Administration and its performance characteristics have been confirmed by the [facility]. The performance of the [employer] Pneumonia Panel has not been established for monitoring treatment of infection and bacterial nucleic acids may persist independent of organism viability. Organism Antibiotic Method Susceptibility Escherichia coli Ampicillin INTERPRETATION Susceptible Escherichia coli Cefazolin INTERPRETATION Susceptible Escherichia coli Gentamicin INTERPRETATION Susceptible Escherichia coli Ampicillin with Sulbactam INTERPRETAT ION Susceptible Escherichia coli Trimethoprim with Sulfamethoxazole INTERPRETATION Susceptible Escherichia coli Meropenem INTERPRETATION Susceptible Escherichia coli Cefepime INTERPRETATION Susceptible Escherichia coli Ciprofloxacin INTERPRETATION Susceptible Escherichia coli Ceftazidime INTERPRETATION Susceptible Escherichia coli Ceftriaxone INTERPRETATION Susceptible Escherichia coli Piperacillin/Tazobactam INTERPRETATIO N Susceptible Pseudomonas aeruginosa Aztreonam INTERPRETATION Susceptible Pseudomonas aeruginosa Ceftazidime INTERPRETATION Susceptible Pseudomonas aeruginosa Ciprofloxacin INTERPRETATION Susceptible Pseudomonas aeruginosa Cefepime INTERPRETATION Susceptible Pseudomonas aeruginosa Imipenem INTERPRETATION Susceptible Pseudomonas aeruginosa Meropenem INTERPRETATION Susceptible Pseudomonas aeruginosa Piperacillin/Tazobactam INTERPR ETATION Susceptible Pseudomonas aeruginosa Tobramycin INTERPRETATION Susceptible Devyn Palacios [facility] LAB MICROBIOLOGY - GENERAL OR DERABLES Final Result Performing Organization Address City/[facility] Co de Phone Number CYNTHIA [facility] Department [place] [address] * POCT glucose (12/31/2024 4:09 PM CDT) [facility] Glucose, POC 124 70 - 199 mg/dL Blood 12/31/2024 4:09 PM CDT 12/31/2024 4:09 PM CDT Parth Dalton MD LAB POCT ORDERABLES - DEVICE Final Result Performing Organization Address [facility] Co de Phone Number CYNTHIA [facility] [place] [address] * TRANSTHORACIC ECHO (TTE) COMPLETE W DOPPLER/CF W CONTRAST (12/31/2024 3:30 PM CDT) [facility] Estimated EF 55-60 % CONS SCIMAGE EF Mod BP 58 % CONS SCIMAGE Anatomical Region Laterality Modality Ultrasound 12/31/2024 1:39 PM CDT Narrative 12/31/2024 4:40 PM CDT [facility] [place] [address] Transthoracic Echocardiographic Report Patient Name: MEGAN TITUS G : 1950 (74y 11m) Sex: M Study Date: 12/31/2024 01:39:18 PM Ht(Inch): 70 Wt(Lb): 216.05 BSA: 2.2 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 Contrast: Contrast Enhancement was Employed: Due to suboptimal image quality with inadequate visualization of at least 2 of 16 LV wall segments in any view after initial imaging. Perflutren contrast was administered using the volume necessary to obtain adequate images. 1.5 ml Optison Administered, (1.5 ml wasted). INDICATIONS: Acute decompensation, Evaluate LV Function and wall motion. CONCLUSIONS: 1. Technically extremely difficult images with limited visualization of cardiac structures. 2. Normal left ventricular size based on volume index. Concentric LV hypertrophy. LVEF is difficult to determine; in limited views the LVEF appears to be 55-60 %. Paradoxical interventricular septal motion consistent with prior cardiac or thoracic surgery. Wall motion is not accurately assessed on this study. 3. Right ventricular dilatation. Normal right ventricular systolic function. 4. There is no significant valvular heart disease. 5. Normal pericardium without pericardial effusion. 6. IVC not visualized due to poor acoustic windows. 7. The Estimated PASP is : 28mmHg+RA pressure. ATTESTATION: I have personally reviewed and interpreted this study without fellow or resident. - DISCLAIMER: The study images and the final report will be retained in the patient chart by the Echo Laboratory for the legally required time period. This chart constitutes the legal record of any testing performed. FINDINGS: Study Quality: Poor with limited visualization of cardiac structures. Left Ventricle: Normal left ventricular size based on volume index. Concentric LV hypertrophy. Normal left ventricular systolic function. The Ejection Fraction is visually estimated to be 55-60 %. Left ventricular diastolic function is indeterminate. Paradoxical interventricular septal motion consistent with prior cardiac or thoracic surgery. Right Ventricle: Right ventricular dilatation. Normal right ventricular systolic function. Left Atrium: The left atrium is normal in size. Right Atrium: The right atrium is normal in size. Mitral Valve: Normal mitral valve structure. Mild mitral valve regurgitation. No stenosis present. Aortic Valve: Normal trileaflet aortic valve. Mild aortic valve regurgitation. No aortic valve stenosis. The mean transaortic gradient is 3 mmHg. The aortic valve area by the continuity equation (using VTI) is 2.51 cm2. Aortic valve dimensionless index is 0.81. Tricuspid Valve: Normal tricuspid valve structure. No tricuspid regurgitation. No tricuspid valve stenosis. Pulmonic Valve: Normal pulmonic valve structure. No pulmonic regurgitation. No pulmonic valve stenosis present. Pericardium: Normal pericardium without pericardial effusion. Aorta: Normal aortic root size at sinuses of Valsalva. IVC: IVC not visualized due to poor acoustic windows. PASP: The Estimated PASP is : 28+rap mmHg. MEASUREMENTS: 2D/MM Value Range Doppler Value Range LVIDd 2D 5.46 cm [ 4.20 - 5.80 ] AV Peak Alexandro 1.1 m/s [ 1.0 - 1.7 ] LVIDs 2D 3.77 cm [ 2.50 - 4.00 ] AV Peak PG 4.84 mmHg IVSd 2D 0.89 cm [ 0.60 - 1.00 ] AV Mean PG 3 mmHg LVPWd 2D 0.94 cm [ 0.60 - 1.00 ] AV VTI 16.5 cm LV Thickness Ratio 0.9 LVOT Peak Alexandro 1.0 m/s [ 0.7 - 1.1 ] LV FS 2D 30.83 % [ 25.00 - 43.00 ] LVOT Peak PG 4.00 mmHg LV Mass 2D 192.72 g LVOT Mean PG 3 mmHg LV Mass Index 2D 87.60 g/m2 LVOT VTI 13.3 cm RWT 0.34 LVOT Diam 1.99 cm EDV Mod BP 65.22 ml [ 62.00 - 150.00 ] JOEL VTI 2.51 cm2 LV EDV Index 29.65 ml/m2 LVOT/AV VTI 0.81 - Dimensionless index (DVI) ESV Mod BP 27.69 ml [ 21.00 - 61.00 ] TR Peak Alexandro 0.0 m/s [ 1.0 - 2.8 ] EF Mod BP 58 % [ 52 - 72 ] TR Peak PG 0.0 mmHg Visually Estimated EF 55-60 % PV Peak Alexandro 0.8 m/s [ 0.4 - 0.8 ] LA Length 4C 6.47 cm PV Peak PG 2.56 mmHg RV Base Dimen 2D 4.1 cm [ 2.5 - 4.2 ] AoR Diam 2D 3.29 cm [ 3.10 - 3.70 ] Ao Root Index 1.50 cm/m2 [ 1.00 - 2.00 ] Electronically Signed By: Nel Ross MD 12/31/2024 4:39:49 PM CDT Procedure Note Nel Ross MD - 12/31/2024 [facility] [place] [address] Transthoracic Echocardiographic Report Patient Name: MEGAN TITUS G : 1950 (74y 11m) Sex: M Study Date: 12/31/2024 01:39:18 PM Ht(Inch): 70 Wt(Lb): 216.05 BSA: 2.2 Orchestra 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 Contrast: Contrast Enhancement was Employed: Due to suboptimal imagequality with inadequate visualization of at least 2 of 16 LV wall segments in any viewafter initial imaging. Perflutren contrast was administered using the volume necessaryto obtain adequate images. 1.5 ml Optison Administered, (1.5 ml wasted). INDICATIONS: Acute decompensation, Evaluate LV Function and wall motion. CONCLUSIONS: 1. Technically extremely difficult images with limited visualization ofcardiac structures. 2. Normal left ventricular size based on volume index. Concentric LVhypertrophy. LVEF is difficult to determine; in limited views the LVEF appears to be 55-60 %.Paradoxical interventricular septal motion consistent with prior cardiac or thoracicsurgery. Wall motion is not accurately assessed on this study. 3. Right ventricular dilatation. Normal right ventricular systolicfunction. 4. There is no significant valvular heart disease. 5. Normal pericardium without pericardial effusion. 6. IVC not visualized due to poor acoustic windows. 7. The Estimated PASP is : 28mmHg+RA pressure. ATTESTATION: I have personally reviewed and interpreted this study without fellow orresident. - DISCLAIMER: The study images and the final report will be retained in the patientchart by the Echo Laboratory for the legally required time period. This chart constitutesthe legal record of any testing performed. FINDINGS: Study Quality: Poor with limited visualization of cardiac structures. Left Ventricle: Normal left ventricular size based on volume index.Concentric LV hypertrophy. Normal left ventricular systolic function. The EjectionFraction is visually estimated to be 55-60 %. Left ventricular diastolic function isindeterminate. Paradoxical interventricular septal motion consistent with prior cardiacor thoracic surgery. Right Ventricle: Right ventricular dilatation. Normal right ventricularsystolic function. Left Atrium: The left atrium is normal in size. Right Atrium: The right atrium is normal in size. Mitral Valve: Normal mitral valve structure. Mild mitral valveregurgitation. No stenosis present. Aortic Valve: Normal trileaflet aortic valve. Mild aortic valveregurgitation. No aortic valve stenosis. The mean transaortic gradient is 3 mmHg. The aortic valvearea by the continuity equation (using VTI) is 2.51 cm2. Aortic valve dimensionlessindex is 0.81. Tricuspid Valve: Normal tricuspid valve structure. No tricuspidregurgitation. No tricuspid valve stenosis. Pulmonic Valve: Normal pulmonic valve structure. No pulmonicregurgitation. No pulmonic valve stenosis present. Pericardium: Normal pericardium without pericardial effusion. Aorta: Normal aortic root size at sinuses of Valsalva. IVC: IVC not visualized due to poor acoustic windows. PASP: The Estimated PASP is : 28+rap mmHg. MEASUREMENTS: 2D/MM Value Range DopplerValue Range LVIDd 2D 5.46 cm [ 4.20 - 5.80 ] AV Peak Vel1.1 m/s [ 1.0 - 1.7 ] LVIDs 2D 3.77 cm [ 2.50 - 4.00 ] AV Peak PG4.84 mmHg IVSd 2D 0.89 cm [ 0.60 - 1.00 ] AV Mean PG3 mmHg LVPWd 2D 0.94 cm [ 0.60 - 1.00 ] AV VTI16.5 cm LV Thickness Ratio 0.9 LVOT PeakVel 1.0 m/s [ 0.7 - 1.1 ] LV FS 2D 30.83 % [ 25.00 - 43.00 ] LVOT Peak PG4.00 mmHg LV Mass 2D 192.72 g LVOT Mean PG3 mmHg LV Mass Index 2D 87.60 g/m2 LVOT VTI13.3 cm RWT 0.34 LVOT Diam1.99 cm EDV Mod BP 65.22 ml [ 62.00 - 150.00 ] JOEL VTI2.51 cm2 LV EDV Index 29.65 ml/m2 LVOT/AV VTI0.81 - Dimensionless index (DVI) ESV Mod BP 27.69 ml [ 21.00 - 61.00 ] TR Peak Vel0.0 m/s [ 1.0 - 2.8 ] EF Mod BP 58 % [ 52 - 72 ] TR Peak PG0.0 mmHg Visually Estimated EF 55-60 % PV Peak Vel0.8 m/s [ 0.4 - 0.8 ] LA Length 4C 6.47 cm PV Peak PG2.56 mmHg RV Base Dimen 2D 4.1 cm [ 2.5 - 4.2 ] AoR Diam 2D 3.29 cm [ 3.10 - 3.70 ] Ao Root Index 1.50 cm/m2 [ 1.00 - 2.00 ] Electronically Signed By: Nel Ross MD 12/31/2024 4:39:49 PM CDT Devyn Palacios FIELD CONSULTANT CV ECHO PROCEDURES Final Resu lt * Oxyhemoglobin, central venous (12/31/2024 1:35 PM CDT) Oxyhemoglobin, CV 65.0 % Comment: Interpretive Data No reference range established. Current interpretive data was last revised 2019. Blood 12/31/2024 1:35 PM CDT 12/31/2024 1:41 PM CDT Magy Kaur FIELD CONSULTANT LAB BLOOD ORDERABLES F inal Result [facility] Department [place] [address] * Potassium, whole blood (12/31/2024 1:35 PM CDT) Pathologist [facility] Potassium, bld 4.2 3.3 - 4.9 mmol/L Blood 12/31/2024 1:35 PM CDT 12/31/2024 1:41 PM CDT Jyotsna Salazar FIELD CONSULTANT LAB BLOOD ORDERABLES Final Result [facility] Department [place] [address] * (ABNORMAL) Blood gas, venous (12/31/2024 1:35 PM CDT) pH, Venous 7.41 7.32 - 7.43 PCO2, Venous 36(L) 40 - 50 mmHg [facility] PO2, Venous 37 mmHg [facility] Comment: Interpretive Data No Reference Range Established Current Interpretive Data was last revised on 2017. HCO3 Venous, Calculated 23 20 - 30 mmol/L [facility] BE, venous -2 mmol/L [facility] Comment: Interpretive Data No Reference Range Established Current Interpretive Data was last revised on 2017. Blood 12/31/2024 1:35 PM CDT 12/31/2024 1:41 PM CDT Devyn Palacios FIELD CONSULTANT LAB BLOOD ORDERABLES Final Re sult Performing Organization Address [facility] Co de Phone Number [facility] [place] [address] * Potassium, whole blood (12/31/2024 11:38 AM CDT) Potassium, bld 4.3 3.3 - 4.9 mmol/L Blood 12/31/2024 11:3 8 AM CDT 12/31/2024 11:45 AM CDT Jyotsna Salazar FIELD CONSULTANT LAB BLOOD ORDERABLES Final Result Performing Organization Address [facility] de Phone Number [facility] [place] [address] * POCT glucose (12/31/2024 11:36 AM CDT) Glucose, POC 103 70 - 199 mg/dL Blood 12/31/2024 11:3 6 AM CDT 12/31/2024 11:36 AM CDT Parth Dalton MD LAB POCT ORDERABLES - DEVICE Final Result Performing Organization Address [facility] de Phone Number [facility] [place] [address] * XR Abdomen 1 View AP (12/31/2024 11:28 AM CDT) Anatomical Region Laterality Modality Body, Abdomen N/A Digital Radiogra phy 12/31/2024 11:5 0 AM CDT Impressions 12/31/2024 4:53 PM CDT Sternal plates in place over the chest. Left atrial appendage clip in place. Pacer wires overlying lower chest and abdomen. Left sided chest tube and two mediastinal drains overlying the chest. Surgical clips overlying abdomen. Goldstein temperature catheter overlying pelvis. Gastric tube looping within stomach with tip projecting over gastric body. Mild gaseous distention of the colon at transverse/splenic flexure compatible with ileus. Dictated by: Robby Sanabria M.D. The radiology attending physician has personally reviewed this study, and had reviewed and/or edited this written report and agrees with it. Electronically signed by: Dee Smith M.D. Narrative 12/31/2024 4:53 PM CDT EXAMINATION: Abdomen, one view. 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 Follow up Ileus. COMPARISON: Abdominal radiograph 12/30/2024 Procedure Note Dee Smith MD - 12/31/2024 EXAMINATION: Abdomen, one view. 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 Follow up Ileus. COMPARISON: Abdominal radiograph 12/30/2024 IMPRESSION: Sternal plates in place over the chest. Left atrial appendage clip in place. Pacer wires overlying lower chest and abdomen. Left sided chest tube and two mediastinal drains overlying the chest. Surgical clips overlying abdomen. Goldstein temperature catheter overlying pelvis. Gastric tube looping within stomach with tip projecting over gastric body. Mild gaseous distention of the colon at transverse/splenic flexure compatible with ileus. Dictated by: Robby Sanabria M.D. The radiology attending physician has personally reviewed this study, and had reviewed and/or edited this written report and agrees with it. Electronically signed by: Dee Smith M.D. [facility] FIELD CONSULTANT IMG XR PROCEDURES Final Resul t * XR Chest 1 View (12/31/2024 10:28 AM CDT) Anatomical Region Laterality Modality Body, Chest N/A Computed Radiogr aphy 12/31/2024 11:5 4 AM CDT Impressions 12/31/2024 3:21 PM CDT Comparison is made with multiple prior exams, most recently radiograph dated 12/30/2024. Tracheostomy remains in place. Gastric tube projects caudally below the diaphragm the distal tip is obscured. Right internal jugular approach central venous catheter terminates in the superior vena cava. Stable left-sided chest tube, mediastinal drain pericardial drain. Left atrial appendage clip and epicardial pacer wires are in place. Sternal plates are in stable position. Small lung volumes with associated mild left lung atelectasis. Bilateral trace pleural effusions. No pneumothorax. The heart and mediastinal contours are stable. Dictated by: Jane Rose M.D. The radiology attending physician has personally reviewed this study, and had reviewed and/or edited this written report and agrees with it. Electronically signed by: Vasquez Yusuf M.D. Narrative 12/31/2024 3:21 PM CDT EXAMINATION: 1 view chest radiograph Procedure Note Vasquez Yusuf MD PhD - 12/31/2024 EXAMINATION: 1 view chest radiograph IMPRESSION: Comparison is made with multiple prior exams, most recently radiograph dated 12/30/2024. Tracheostomy remains in place. Gastric tube projects caudally below the diaphragm the distal tip is obscured. Right internal jugular approach central venous catheter terminates in the superior vena cava. Stable left-sided chest tube, mediastinal drain pericardial drain. Left atrial appendage clip and epicardial pacer wires are in place. Sternal plates are in stable position. Small lung volumes with associated mild left lung atelectasis. Bilateral trace pleural effusions. No pneumothorax. The heart and mediastinal contours are stable. Dictated by: Jane Rose M.D. The radiology attending physician has personally reviewed this study, and had reviewed and/or edited this written report and agrees with it. Electronically signed by: Vasquez Yusuf M.D. Devyn Palacios FIELD CONSULTANT IMG XR PROCEDURES Final Resul t * Oxyhemoglobin, central venous (12/31/2024 9:59 AM CDT) Oxyhemoglobin, CV 46.5 % Comment: Interpretive Data No reference range established. Current interpretive data was last revised 2019. Blood 12/31/2024 9:59 AM CDT 12/31/2024 10:05 AM CDT Devyn Palacios FIELD CONSULTANT LAB BLOOD ORDERABLES Final Re sult Performing Organization Address City/[facility]/ZIP Co de Phone Number [facility] Department [place] [address] * Potassium, whole blood (12/31/2024 9:59 AM CDT) Potassium, bld 4.6 3.3 - 4.9 mmol/L Blood 12/31/2024 9:59 AM CDT 12/31/2024 10:05 AM CDT Magy Kaur FIELD CONSULTANT LAB BLOOD ORDERABLES F inal Result Performing Organization Address [facility] Co de Phone Number [facility] Department [place] [address] * eGFR (12/31/2024 9:59 AM CDT) eGFR 65 >=60 mL/min/1. 73 m2 Comment: Interpretive Data Reference Interval Normal >/= 90 mL/min/1.73m2 Mildly decreased* 60 - 89 mL/min/1.73m2 Mildly to moderately decreased 45 - 59 mL/min/1.73m2 Moderately to severely decreased 30 - 44 mL/min/1.73m2 Severely decreased 15 - 29 mL/min/1.73m2 Kidney Failure < 15 mL/min/1.73m2 *Relative to young adult level Estimated glomerular filtration rate is determined by the 2020 CKD-EPI equation recommended by the National Kidney Foundation (A Unifying Approach to GFR Estimation: Recommendations of the NKF-ASK Task Force on Reassessing the Inclusion of Race in Diagnosing Kidney Disease, JASN 202). The CKD-EPI equation should not be used for patients with unstable renal function and has not been validated in children and those over 70. Current interpretive data was last reviewed 2021. Blood 12/31/2024 9:59 AM CDT 12/31/2024 10:24 AM CDT us Thoa Thi Palacios FIELD CONSULTANT LAB BLOOD ORDERABLES Final Re sult Performing Organization Address [facility] Co de Phone Number [facility] [place] [address] * Lactate, whole blood (12/31/2024 9:59 AM CDT) Lactate, bld 1.5 0.7 - 2.0 mmol/L Blood 12/31/2024 9:59 AM CDT 12/31/2024 10:05 AM CDT Thoa Thi Palacios FIELD CONSULTANT LAB BLOOD ORDERABLES Final Re sult Performing Organization Address [facility] de Phone Number [facility] [place] [address] * Protime-INR (12/31/2024 9:59 AM CDT) PT 12.4 10.2 - 13.5 sec INR 1.10 0.90 - 1.20 [facility] Comment: Interpretive data Oral anticoagulant therapeutic ranges: Venous thromboembolism prophylaxis or treatment: 2.0-3.0 CARDIOLOGY Standard range: 2.0-3.0 High-intensity range: 2.5-3.5 Refer to indication-specific guidelines for appropriate target ranges for prosthetic heart valve replacement. Current interpretive data was last revised on 2019. Blood 12/31/2024 9:59 AM CDT 12/31/2024 10:05 AM CDT us Thoa Thi Palacios FIELD CONSULTANT LAB BLOOD ORDERABLES Final Re sult Performing Organization Address [facility] de Phone Number [facility] [place] [address] * (ABNORMAL) CBC without differential (12/31/2024 9:59 AM CDT) WBC 5.78 3.80 - 9.90 K/cumm Hgb 8.7(L) 13.0 - 17.5 g/dL [facility] Hct 26.2(L) 38.9 - 50.3 % [facility] Plt 96(L) 150 - 400 K/cumm [facility] MPV 11.1 9.1 - 12.3 fL [facility] RBC 2.54(L) 4.30 - 5.80 M/cumm [facility] MCV 103.1(H) 81.3 - 96.4 fL [facility] MCH 34.3(H) 27.1 - 33.3 pg [facility] MCHC 33.2 32.3 - 35.7 g/dL [facility] RDW CV 14.6 11.1 - 14.9 % [facility] RDW SD 54.7(H) 35.7 - 48.1 fL [facility] NRBC abs 0.00 0.00 - 0.01 K/cumm [facility] Blood 12/31/2024 9:59 AM CDT 12/31/2024 10:24 AM CDT us Devyn Palacios FIELD CONSULTANT LAB BLOOD ORDERABLES Final Re sult [facility] Department [place] [address] * Type and screen (12/31/2024 9:59 AM CDT) ABO Rh A Positive Becca, indirect Negative [facility] Blood 12/31/2024 9:59 AM CDT 12/31/2024 10:57 AM CDT Narrative [facility] - 12/31/2024 11:42 AM CDT Has the patient had Daratumumab or Isatuximab in the past 6 months?->Unknown [facility] LAB BLOOD BANK TEST ORDERABLE S Final Result [facility] Department [place] [address] * Blood gas, venous (12/31/2024 9:59 AM CDT) pH, Venous 7.36 7.32 - 7.43 PCO2, Venous 40 40 - 50 mmHg [facility] PO2, Venous 37 mmHg [facility] Comment: Interpretive Data No Reference Range Established Current Interpretive Data was last revised on 2017. HCO3 Venous, Calculated 23 20 - 30 mmol/L [facility] BE, venous -2 mmol/L [facility] Comment: Interpretive Data No Reference Range Established Current Interpretive Data was last revised on 2017. Blood 12/31/2024 9:59 AM CDT 12/31/2024 10:05 AM CDT [facility] LAB BLOOD ORDERABLES Final Re sult [facility] [address] [facility] Department [place] [address] * (ABNORMAL) Comprehensive metabolic panel (12/31/2024 9:59 AM CDT) Sodium 137 135 - 145 mmol/L Potassium, pl 4.4 3.3 - 4.9 mmol/L [facility] Chloride 106 97 - 110 mmol/L [facility] CO2 22 22 - 32 mmol/L [facility] Anion gap 9 2 - 15 mmol/L [facility] BUN 23 6 - 25 mg/dL [facility] Creatinine 1.17 0.80 - 1.30 mg/dL [facility] Glucose 95 70 - 199 mg/dL [facility] Comment: Interpretive Data Fasting glucose >/= 126 mg/dl is diagnostic for diabetes. Fasting is defined as no caloric intake for at least 8 hours. Fasting glucose between 100 mg/dl to 125 mg/dl is diagnostic of prediabetes. In a patient with classic symptoms of hyperglycemia or hyperglycemic crisis, a random glucose >/= 200 mg/dl is diagnostic for diabetes. In the absence of unequivocal hyperglycemia, results should be confirmed by repeat testing. The classification and Diagnosis of Diabetes Diabetes Care 2021; 46: S19-S40. Current interpretive data was last revised 2022. Calcium 8.4(L) 8.5 - 10.3 mg/dL [facility] Bilirubin, total 0.7 0.1 - 1.2 mg/dL [facility] Protein, pl 5.7(L) 6.5 - 8.5 g/dL [facility] Albumin 3.3(L) 3.5 - 5.0 g/dL [facility] Alk phos 30(L) 40 - 130 Units/L [facility] ALT 14 7 - 55 Units/L [facility] AST 32 10 - 50 Units/L [facility] Blood 12/31/2024 9:59 AM CDT 12/31/2024 10:24 AM CDT us Devyn Palacios NP LAB BLOOD ORDERABLES Final Re sult [facility] [address] [facility] Department [place] [address] * Critical Care (12/31/2024 9:54 AM CDT) Narrative Reinaldo Griffin MD - 12/31/2024 9:54 AM CDT Reinaldo Griffin MD 12/31/2024 3:10 PM Critical Care Performed by: Devyn Palacios NP Authorized by: Devyn Palacios NP CRITICAL CARE: Team: 56 CTICU Shift: AM Level of Billing: Critical Care My time spent with this patient was 120 minutes: Critical Provider Statement: I have seen and examined the patient on this day of service. I have reviewed and confirmed the history, physical exam, laboratory and radiologic data as documented in the signed ICU note. I have reviewed and discussed my treatment plan with the ICU team and other medical/revenue cycle consultant staff, making frequent assessments and decisions regarding this patient's complex medical care. Critical Care time was exclusive of time spent performing separately billed procedures, treating other patients, and teaching. This time was in addition to and separate from critical care provided by other practitioners in my group on this day of service. Critical Care was necessary to treat or prevent imminent or life-threatening deterioration of the following conditions: I spent time reviewing and interpreting data from bedside monitors, laboratory results, and imaging, I spent time discussing the management of this critically ill patient with consultants and the medical staff and I spent time documenting in the medical record us Devyn Palacios FIELD CONSULTANT IN CLINIC/BEDSIDE ORDERABLES Final Result * POCT glucose (12/31/2024 8:36 AM CDT) Glucose, POC 92 70 - 199 mg/dL Blood 12/31/2024 8:36 AM CDT 12/31/2024 8:36 AM CDT Parth Dalton MD LAB POCT ORDERABLES - DEVICE Final Result Performing Organization Address City/[facility] Co de Phone Number [facility] Department [place] [address] * Oxyhemoglobin, central venous (12/31/2024 4:11 AM CDT) Oxyhemoglobin, CV 44.5 % Comment: Interpretive Data No reference range established. Current interpretive data was last revised 2019. Blood 12/31/2024 4:11 AM CDT 12/31/2024 4:31 AM CDT Magy Kaur FIELD CONSULTANT LAB BLOOD ORDERABLES F inal Result Performing Organization Address [facility] Co de Phone Number [facility] Department [place] [address] * Potassium, whole blood (12/31/2024 4:11 AM CDT) Potassium, bld 3.9 3.3 - 4.9 mmol/L Blood 12/31/2024 4:11 AM CDT 12/31/2024 4:31 AM CDT Jyotsna Salazar FIELD CONSULTANT LAB BLOOD ORDERABLES Final Result Performing Organization Address [facility] Co de Phone Number [facility] [place] [address] * POCT glucose (12/31/2024 4:09 AM CDT) Glucose, POC 114 70 - 199 mg/dL Blood 12/31/2024 4:09 AM CDT 12/31/2024 4:09 AM CDT Parth Dalton MD LAB POCT ORDERABLES - DEVICE Final Result Performing Organization Address [facility] de Phone Number [facility] Department [place] [address] * POCT glucose (12/30/2024 11:44 PM CDT) [facility] Glucose, POC 118 70 - 199 mg/dL Blood 12/30/2024 11:4 4 PM CDT 12/30/2024 11:44 PM CDT Parth Dalton MD LAB POCT ORDERABLES - DEVICE Final Result Performing Organization Address [facility] de Phone Number [facility] [place] [address] * (ABNORMAL) CBC without differential (12/30/2024 8:10 PM CDT) [facility] WBC 5.98 3.80 - 9.90 K/cumm Hgb 8.7(L) 13.0 - 17.5 g/dL [facility] Hct 25.8(L) 38.9 - 50.3 % [facility] Plt 84(L) 150 - 400 K/cumm [facility] MPV 10.9 9.1 - 12.3 fL [facility] RBC 2.51(L) 4.30 - 5.80 M/cumm [facility] MCV 102.8(H) 81.3 - 96.4 fL [facility] MCH 34.7(H) 27.1 - 33.3 pg [facility] MCHC 33.7 32.3 - 35.7 g/dL [facility] RDW CV 14.6 11.1 - 14.9 % [facility] RDW SD 55.1(H) 35.7 - 48.1 fL [facility] NRBC abs 0.00 0.00 - 0.01 K/cumm [facility] Blood 12/30/2024 8:10 PM CDT 12/30/2024 8:34 PM CDT Rosa Beltran NP LAB BLOOD ORDERABLES Final Re sult Performing Organization Address City/[facility]/ZIP Co de Phone Number [facility] Department [place] [address] * Type and screen (12/30/2024 8:10 PM CDT) [facility] Becca, indirect Negative ABO Rh A Positive [facility] Blood 12/30/2024 8:10 PM CDT 12/30/2024 8:35 PM CDT Narrative [facility] - 12/30/2024 9:29 PM CDT Has the patient had Daratumumab or Isatuximab in the past 6 months?->Unknown Rosa Beltran NP LAB BLOOD BANK TEST ORDERABLE S Final Result [facility] [place] [address] * eGFR (12/30/2024 8:08 PM CDT) [facility] eGFR 60 >=60 mL/min/1. 73 m2 Comment: Interpretive Data Reference Interval Normal >/= 90 mL/min/1.73m2 Mildly decreased* 60 - 89 mL/min/1.73m2 Mildly to moderately decreased 45 - 59 mL/min/1.73m2 Moderately to severely decreased 30 - 44 mL/min/1.73m2 Severely decreased 15 - 29 mL/min/1.73m2 Kidney Failure < 15 mL/min/1.73m2 *Relative to young adult level Estimated glomerular filtration rate is determined by the 2020 CKD-EPI equation recommended by the National Kidney Foundation (A Unifying Approach to GFR Estimation: Recommendations of the NKF-ASK Task Force on Reassessing the Inclusion of Race in Diagnosing Kidney Disease, JASN 2020). The CKD-EPI equation should not be used for patients with unstable renal function and has not been validated in children and those over 70. Current interpretive data was last reviewed 2021. Blood 12/30/2024 8:08 PM CDT 12/30/2024 8:34 PM CDT Marsha Villarreal NP LAB BLOOD ORDERABLES Final Re sult [facility] [place] [address] * Phosphorus (12/30/2024 8:08 PM CDT) Phosphorus, pl 3.4 2.3 - 4.5 mg/dL Blood 12/30/2024 8:08 PM CDT 12/30/2024 8:34 PM CDT Marsha Villarreal FIELD CONSULTANT LAB BLOOD ORDERABLES Final Re sult [facility] [place] [address] * Magnesium (12/30/2024 8:08 PM CDT) Magnesium 2.2 1.4 - 2.5 mg/dL Blood 12/30/2024 8:08 PM CDT 12/30/2024 8:34 PM CDT Marsha Villarreal NP LAB BLOOD ORDERABLES Final Re sult Performing Organization Address City/[facility] Co de Phone Number [facility] Department [place] [address] * Basic metabolic panel (12/30/2024 8:08 PM CDT) Pathologist [facility] Sodium 139 135 - 145 mmol/L Potassium, pl 4.1 3.3 - 4.9 mmol/L [facility] Chloride 106 97 - 110 mmol/L [facility] CO2 23 22 - 32 mmol/L [facility] Anion gap 10 2 - 15 mmol/L [facility] BUN 23 6 - 25 mg/dL [facility] Creatinine 1.25 0.80 - 1.30 mg/dL [facility] Glucose 112 70 - 199 mg/dL [facility] Comment: Interpretive Data Fasting glucose >/= 126 mg/dl is diagnostic for diabetes. Fasting is defined as no caloric intake for at least 8 hours. Fasting glucose between 100 mg/dl to 125 mg/dl is diagnostic of prediabetes. In a patient with classic symptoms of hyperglycemia or hyperglycemic crisis, a random glucose >/= 200 mg/dl is diagnostic for diabetes. In the absence of unequivocal hyperglycemia, results should be confirmed by repeat testing. The classification and Diagnosis of Diabetes Diabetes Care 2021; 46: S19-S40. Current interpretive data was last revised 2022. Calcium 8.5 8.5 - 10.3 mg/dL [facility] Blood 12/30/2024 8:08 PM CDT 12/30/2024 8:34 PM CDT Marsha Villarreal NP LAB BLOOD ORDERABLES Final Re sult Performing Organization Address [facility] Co de Phone Number [facility] Department [place] [address] * POCT glucose (12/30/2024 7:41 PM CDT) Glucose, POC 94 70 - 199 mg/dL Blood 12/30/2024 7:41 PM CDT 12/30/2024 7:41 PM CDT us Parth Dalton MD LAB POCT ORDERABLES - DEVICE Final Result [facility] Department [place] [address] * XR Chest 1 View (12/30/2024 6:25 PM CDT) Anatomical Region Laterality Modality Body, Chest N/A Computed Radiogr aphy 12/31/2024 9:37 AM CDT Impressions 12/31/2024 12:59 PM CDT Comparison is made with multiple prior exams, most recently radiograph dated 12/29/2024. Tracheostomy in stable position. Right internal jugular approach central venous catheter terminates in the superior vena cava. Gastric tube projects caudally below the diaphragm looping within the stomach. Left atrial appendage clip is in place. Stable mediastinal drain, pericardial drain, and left-sided thoracostomy tube. Small left pleural effusion with associated atelectasis. No right pleural effusion. No pneumothorax. The heart and mediastinal contours are stable. Dictated by: Jane Rose M.D. The radiology attending physician has personally reviewed this study, and had reviewed and/or edited this written report and agrees with it. Electronically signed by: Toby Horan M.D. Narrative 12/31/2024 12:59 PM CDT EXAMINATION: 1 view chest radiograph Procedure Note Toby Horan MD - 12/31/2024 EXAMINATION: 1 view chest radiograph IMPRESSION: Comparison is made with multiple prior exams, most recently radiograph dated 12/29/2024. Tracheostomy in stable position. Right internal jugular approach central venous catheter terminates in the superior vena cava. Gastric tube projects caudally below the diaphragm looping within the stomach. Left atrial appendage clip is in place. Stable mediastinal drain, pericardial drain, and left-sided thoracostomy tube. Small left pleural effusion with associated atelectasis. No right pleural effusion. No pneumothorax. The heart and mediastinal contours are stable. Dictated by: Jane Rose M.D. The radiology attending physician has personally reviewed this study, and had reviewed and/or edited this written report and agrees with it. Electronically signed by: Toby Horan M.D. Mary Swift FIELD CONSULTANT IMG XR PROCEDURES F inal Result * XR Abdomen 1 View AP (12/30/2024 6:24 PM CDT) Anatomical Region Laterality Modality Body, Abdomen N/A Computed Radiogr aphy 12/31/2024 9:49 AM CDT Impressions 12/31/2024 4:53 PM CDT Gastric tube looping within the stomach with tip projecting over the gastric body. Partially imaged mildly dilated loops of small bowel in the upper abdomen. Chest findings are better evaluated on contemporaneous chest radiograph. Dictated by: Robby Sanabria M.D. The radiology attending physician has personally reviewed this study, and had reviewed and/or edited this written report and agrees with it. Electronically signed by: Dee Smith M.D. Narrative 12/31/2024 4:53 PM CDT EXAMINATION: Abdomen, one view. 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 Gastric tube placement. COMPARISON: Abdominal radiograph 12/28/2024. Procedure Note Dee Smith MD - 12/31/2024 EXAMINATION: Abdomen, one view. 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 Gastric tube placement. COMPARISON: Abdominal radiograph 12/28/2024. IMPRESSION: Gastric tube looping within the stomach with tip projecting over the gastric body. Partially imaged mildly dilated loops of small bowel in the upper abdomen. Chest findings are better evaluated on contemporaneous chest radiograph. Dictated by: Robby Sanabria M.D. The radiology attending physician has personally reviewed this study, and had reviewed and/or edited this written report and agrees with it. Electronically signed by: Dee Smith M.D. us Marsha TedKarlene Villarreal FIELD CONSULTANT IMG XR PROCEDURES Final Resul t * (ABNORMAL) Differential, auto (12/30/2024 5:25 PM CDT) Neutrophil abs 6.01 1.50 - 6.50 K/cumm Imm gran abs 0.04 0.00 - 0.10 K/cumm [facility] Lymphocyte abs 0.33(L) 0.80 - 3.30 K/cumm [facility] Monocyte abs 0.50 0.20 - 0.80 K/cumm [facility] Eosinophil abs 0.01 0.00 - 0.50 K/cumm [facility] Basophil abs 0.01 0.00 - 0.10 K/cumm [facility] Neutrophil pct 87.2 % [facility] Comment: Interpretive Data Percent cell count reference ranges are not reported, since discordance with absolute values may lead to misinterpretation of CBC data. Current Interpretive Data was last revised on 2017. Imm gran pct 0.6 % [facility] Comment: Interpretive Data Percent cell count reference ranges are not reported, since discordance with absolute values may lead to misinterpretation of CBC data. Current Interpretive Data was last revised on 2017. Lymphocyte pct 4.8 % [facility] Comment: Interpretive Data Percent cell count reference ranges are not reported, since discordance with absolute values may lead to misinterpretation of CBC data. Current Interpretive Data was last revised on 2017. Monocyte pct 7.2 % [facility] Comment: Interpretive Data Percent cell count reference ranges are not reported, since discordance with absolute values may lead to misinterpretation of CBC data. Current Interpretive Data was last revised on 2017. Eosinophil pct 0.1 % [facility] Comment: Interpretive Data Percent cell count reference ranges are not reported, since discordance with absolute values may lead to misinterpretation of CBC data. Current Interpretive Data was last revised on 2017. Basophil pct 0.1 % [facility] Comment: Interpretive Data Percent cell count reference ranges are not reported, since discordance with absolute values may lead to misinterpretation of CBC data. Current Interpretive Data was last revised on 2017. Blood 12/30/2024 5:25 PM CDT 12/30/2024 5:37 PM CDT Marsha Villarreal NP LAB BLOOD ORDERABLES Final Re sult Performing Organization Address City/[facility]/ZIP Co de Phone Number [facility] [place] [address] * (ABNORMAL) CBC with auto differential (12/30/2024 5:25 PM CDT) WBC 6.90 3.80 - 9.90 K/cumm Hgb 8.6(L) 13.0 - 17.5 g/dL [facility] Hct 25.8(L) 38.9 - 50.3 % [facility] Plt 91(L) 150 - 400 K/cumm [facility] MPV 10.7 9.1 - 12.3 fL [facility] RBC 2.48(L) 4.30 - 5.80 M/cumm [facility] MCV 104.0(H) 81.3 - 96.4 fL [facility] MCH 34.7(H) 27.1 - 33.3 pg [facility] MCHC 33.3 32.3 - 35.7 g/dL [facility] RDW CV 14.6 11.1 - 14.9 % [facility] RDW SD 55.3(H) 35.7 - 48.1 fL [facility] NRBC abs 0.00 0.00 - 0.01 K/cumm [facility] Blood 12/30/2024 5:25 PM CDT 12/30/2024 5:37 PM CDT Marsha Villarreal NP LAB BLOOD ORDERABLES Final Re sult [facility] [place] [address] * (ABNORMAL) eGFR (12/30/2024 5:21 PM CDT) eGFR 59(L) >=60 mL/min/1. 73 m2 Comment: Interpretive Data Reference Interval Normal >/= 90 mL/min/1.73m2 Mildly decreased* 60 - 89 mL/min/1.73m2 Mildly to moderately decreased 45 - 59 mL/min/1.73m2 Moderately to severely decreased 30 - 44 mL/min/1.73m2 Severely decreased 15 - 29 mL/min/1.73m2 Kidney Failure < 15 mL/min/1.73m2 *Relative to young adult level Estimated glomerular filtration rate is determined by the 2020 CKD-EPI equation recommended by the National Kidney Foundation (A Unifying Approach to GFR Estimation: Recommendations of the NKF-ASK Task Force on Reassessing the Inclusion of Race in Diagnosing Kidney Disease, JASN 2020). The CKD-EPI equation should not be used for patients with unstable renal function and has not been validated in children and those over 70. Current interpretive data was last reviewed 2021. Blood 12/30/2024 5:21 PM CDT 12/30/2024 5:53 PM CDT us Marsha Villarreal FIELD CONSULTANT LAB BLOOD ORDERABLES Final Re sult Performing Organization Address [facility] Co de Phone Number [facility] Department [place] [address] * Magnesium (12/30/2024 5:21 PM CDT) Pathologist [facility] Magnesium 2.2 1.4 - 2.5 mg/dL Blood 12/30/2024 5:21 PM CDT 12/30/2024 5:53 PM CDT us Parth Dalton MD LAB BLOOD ORDERABLES Final Re sult Performing Organization Address [facility] Co de Phone Number [facility] Department [place] [address] * Basic metabolic panel (12/30/2024 5:21 PM CDT) Sodium 141 135 - 145 mmol/L Potassium, pl 4.4 3.3 - 4.9 mmol/L [facility] Chloride 108 97 - 110 mmol/L [facility] CO2 23 22 - 32 mmol/L [facility] Anion gap 10 2 - 15 mmol/L [facility] BUN 23 6 - 25 mg/dL [facility] Creatinine 1.27 0.80 - 1.30 mg/dL [facility] Glucose 118 70 - 199 mg/dL [facility] Comment: Interpretive Data Fasting glucose >/= 126 mg/dl is diagnostic for diabetes. Fasting is defined as no caloric intake for at least 8 hours. Fasting glucose between 100 mg/dl to 125 mg/dl is diagnostic of prediabetes. In a patient with classic symptoms of hyperglycemia or hyperglycemic crisis, a random glucose >/= 200 mg/dl is diagnostic for diabetes. In the absence of unequivocal hyperglycemia, results should be confirmed by repeat testing. The classification and Diagnosis of Diabetes Diabetes Care 2021; 46: S19-S40. Current interpretive data was last revised 2022. Calcium 8.9 8.5 - 10.3 mg/dL [facility] Blood 12/30/2024 5:21 PM CDT 12/30/2024 5:53 PM CDT Marsha Villarreal NP LAB BLOOD ORDERABLES Final Re sult [facility] Department [place] [address] * Oxyhemoglobin, central venous (12/30/2024 5:20 PM CDT) Oxyhemoglobin, CV 53.9 % Comment: Interpretive Data No reference range established. Current interpretive data was last revised 2019. Blood 12/30/2024 5:20 PM CDT 12/30/2024 5:33 PM CDT Marsha D. Huchel FIELD CONSULTANT LAB BLOOD ORDERABLES Final Re sult Performing Organization Address [facility] Co de Phone Number [facility] Department [place] [address] * Potassium, whole blood (12/30/2024 5:18 PM CDT) Potassium, bld 4.3 3.3 - 4.9 mmol/L Blood 12/30/2024 5:18 PM CDT 12/30/2024 5:33 PM CDT Marsha Villarreal FIELD CONSULTANT LAB BLOOD ORDERABLES Final Re sult Performing Organization Address [facility] de Phone Number [facility] Department [place] [address] * POCT glucose (12/30/2024 4:29 PM CDT) Glucose, POC 94 70 - 199 mg/dL Blood 12/30/2024 4:29 PM CDT 12/30/2024 4:29 PM CDT us Parth Dalton MD LAB POCT ORDERABLES - DEVICE Final Result Performing Organization Address [facility] de Phone Number [facility] Department [place] [address] * Oxyhemoglobin, central venous (12/30/2024 12:04 PM CDT) Oxyhemoglobin, CV 64.8 % Comment: Interpretive Data No reference range established. Current interpretive data was last revised 2019. Blood 12/30/2024 12:0 4 PM CDT 12/30/2024 12:12 PM CDT us Magy Kaur FIELD CONSULTANT LAB BLOOD ORDERABLES F inal Result Performing Organization Address [facility] [place] [address] * Potassium, whole blood (12/30/2024 12:04 PM CDT) Potassium, bld 4.1 3.3 - 4.9 mmol/L Blood 12/30/2024 12:0 4 PM CDT 12/30/2024 12:12 PM CDT us Parth Dalton MD LAB BLOOD [place] [address] * POCT glucose (12/30/2024 12:03 PM CDT) Glucose, POC 130 70 - 199 mg/dL Blood 12/30/2024 12:0 3 PM CDT 12/30/2024 12:03 PM CDT us Parth Dalton MD LAB POCT ORDERABLES - DEVICE Final Result Performing Organization Address City/[facility]/[place] [address] * Potassium, whole blood (12/30/2024 7:45 AM CDT) Potassium, bld 3.8 3.3 - 4.9 mmol/L Blood 12/30/2024 7:45 AM CDT 12/30/2024 7:52 AM CDT us Jyotsna Salazar NP LAB BLOOD [place] [address] * POCT glucose (12/30/2024 7:45 AM CDT) Glucose, POC 132 70 - 199 mg/dL Blood 12/30/2024 7:45 AM CDT 12/30/2024 7:45 AM CDT Parth Dalton MD LAB POCT ORDERABLES - DEVICE Final Result Performing Organization Address [facility] de Phone Number [facility] Department [place] [address] * (ABNORMAL) Blood gas, arterial (12/30/2024 7:45 AM CDT) Pathologist [facility] pH, Art 7.43 7.35 - 7.45 PCO2, Arterial 31(L) 35 - 45 mmHg [facility] PO2, Arterial 153(H) 83 - 108 mmHg [facility] HCO3 Art (Calculated) 21 20 - 30 mmol/L [facility] BE, art -3 mmol/L [facility] Comment: Interpretive Data No Reference Range Established Current Interpretive Data was last revised on 2017 O2 Sat Art (Measured) 100(H) 90 - 95 % [facility] Blood 12/30/2024 7:45 AM CDT 12/30/2024 7:52 AM CDT Result [facility] Magy Kaur NP LAB BLOOD ORDERABLES F inal Result Performing Organization Address [facility] de Phone Number [facility] Department [place] [address] * Critical Care (12/30/2024 6:54 AM CDT) Narrative Brandt Jesus MD - 12/30/2024 6:54 AM CDT Brandt Jesus MD 12/30/2024 1:36 PM Critical Care Performed by: Seema Palma DNP Authorized by: Seema Palma DNP CRITICAL CARE: Team: 56 CTICU Shift: AM Level of Billing: Critical Care My time spent with this patient was 70 minutes: Critical Provider Statement: I have seen and examined the patient on this day of service. I have reviewed and confirmed the history, physical exam, laboratory and radiologic data as documented in the signed ICU note. I have reviewed and discussed my treatment plan with the ICU team and other medical/revenue cycle consultant staff, making frequent assessments and decisions regarding this patient's complex medical care. Critical Care time was exclusive of time spent performing separately billed procedures, treating other patients, and teaching. This time was in addition to and separate from critical care provided by other practitioners in my group on this day of service. Critical Care was necessary to treat or prevent imminent or life-threatening deterioration of the following conditions: I spent time reviewing and interpreting data from bedside monitors, laboratory results, and imaging, I spent time discussing the management of this critically ill patient with consultants and the medical staff and I spent time documenting in the medical record us Seema Palma DNP IN CLINIC/BEDSIDE ORDER OVIDIO Final Result * POCT glucose (12/30/2024 3:45 AM CDT) Glucose, POC 136 70 - 199 mg/dL Blood 12/30/2024 3:45 AM CDT 12/30/2024 3:45 AM CDT Parth Dalton MD LAB POCT ORDERABLES - DEVICE Final Result Performing Organization Address [facility] Co de Phone Number [facility] Department [place] [address] * Oxyhemoglobin, central venous (12/30/2024 1:10 AM CDT) Oxyhemoglobin, CV 73.6 % Comment: Interpretive Data No reference range established. Current interpretive data was last revised 2019. Blood 12/30/2024 1:10 AM CDT 12/30/2024 1:23 AM CDT Magy Kaur FIELD CONSULTANT LAB BLOOD ORDERABLES F inal Result Performing Organization Address City/[facility] Co de Phone Number [facility] Department [place] [address] * POCT glucose (12/30/2024 12:16 AM CDT) Glucose, POC 134 70 - 199 mg/dL Blood 12/30/2024 12:1 6 AM CDT 12/30/2024 12:16 AM CDT Parth Dalton MD LAB POCT ORDERABLES - DEVICE Final Result Performing Organization Address City/[facility]/ZIP Co de Phone Number [facility] [place] [address] * Potassium, whole blood (12/30/2024 12:12 AM CDT) Potassium, bld 4.2 3.3 - 4.9 mmol/L Blood 12/30/2024 12:1 2 AM CDT 12/30/2024 12:35 AM CDT Magy Kaur NP LAB BLOOD ORDERABLES F inal Result Performing Organization Address City/[facility] Co de Phone Number [facility] Department [place] [address] * eGFR (12/30/2024 12:12 AM CDT) eGFR 70 >=60 mL/min/1. 73 m2 Comment: Interpretive Data Reference Interval Normal >/= 90 mL/min/1.73m2 Mildly decreased* 60 - 89 mL/min/1.73m2 Mildly to moderately decreased 45 - 59 mL/min/1.73m2 Moderately to severely decreased 30 - 44 mL/min/1.73m2 Severely decreased 15 - 29 mL/min/1.73m2 Kidney Failure < 15 mL/min/1.73m2 *Relative to young adult level Estimated glomerular filtration rate is determined by the 2020 CKD-EPI equation recommended by the National Kidney Foundation (A Unifying Approach to GFR Estimation: Recommendations of the NKF-ASK Task Force on Reassessing the Inclusion of Race in Diagnosing Kidney Disease, JASN 2020). The CKD-EPI equation should not be used for patients with unstable renal function and has not been validated in children and those over 70. Current interpretive data was last reviewed 2021. Blood 12/30/2024 12:1 2 AM CDT 12/30/2024 12:40 AM CDT Magy Kaur FIELD CONSULTANT LAB BLOOD ORDERABLES F inal Result Performing Organization Address City/[facility] Co de Phone Number [facility] Department [place] [address] * (ABNORMAL) CBC without differential (12/30/2024 12:12 AM CDT) WBC 5.93 3.80 - 9.90 K/cumm Hgb 9.1(L) 13.0 - 17.5 g/dL [facility] Hct 26.7(L) 38.9 - 50.3 % [facility] Plt 87(L) 150 - 400 K/cumm [facility] MPV 10.7 9.1 - 12.3 fL [facility] RBC 2.60(L) 4.30 - 5.80 M/cumm [facility] MCV 102.7(H) 81.3 - 96.4 fL [facility] MCH 35.0(H) 27.1 - 33.3 pg [facility] MCHC 34.1 32.3 - 35.7 g/dL [facility] RDW CV 14.7 11.1 - 14.9 % [facility] RDW SD 55.4(H) 35.7 - 48.1 fL [facility] NRBC abs 0.00 0.00 - 0.01 K/cumm [facility] Blood 12/30/2024 12:1 2 AM CDT 12/30/2024 12:41 AM CDT Magy Kaur NP LAB BLOOD ORDERABLES F inal Result [facility] [place] [address] * Phosphorus (12/30/2024 12:12 AM CDT) Pathologist [facility] Phosphorus, pl 3.8 2.3 - 4.5 mg/dL Blood 12/30/2024 12:1 2 AM CDT 12/30/2024 12:40 AM CDT Magy Kaur FIELD CONSULTANT LAB BLOOD ORDERABLES F inal Result Performing Organization Address [facility] de Phone Number [facility] [place] [address] * Magnesium (12/30/2024 12:12 AM CDT) [facility] Magnesium 2.5 1.4 - 2.5 mg/dL Blood 12/30/2024 12:1 2 AM CDT 12/30/2024 12:40 AM CDT Mgay Kaur FIELD CONSULTANT LAB BLOOD ORDERABLES F inal Result Performing Organization Address [facility] de Phone Number [facility] [place] [address] * (ABNORMAL) Blood gas, arterial (12/30/2024 12:12 AM CDT) [facility] pH, Art 7.39 7.35 - 7.45 PCO2, Arterial 36 35 - 45 mmHg [facility] PO2, Arterial 81(L) 83 - 108 mmHg [facility] HCO3 Art (Calculated) 22 20 - 30 mmol/L [facility] BE, art -3 mmol/L [facility] Comment: Interpretive Data No Reference Range Established Current Interpretive Data was last revised on 2017 O2 Sat Art (Measured) 96(H) 90 - 95 % [facility] Blood 12/30/2024 12:1 2 AM CDT 12/30/2024 12:35 AM CDT Magy Kaur NP LAB BLOOD ORDERABLES F inal Result Performing Organization Address City/[facility]/ZIP Co de Phone Number [facility] Department [place] [address] * Basic metabolic panel (12/30/2024 12:12 AM CDT) [facility] Sodium 140 135 - 145 mmol/L Potassium, pl 4.3 3.3 - 4.9 mmol/L [facility] Chloride 108 97 - 110 mmol/L [facility] CO2 22 22 - 32 mmol/L [facility] Anion gap 10 2 - 15 mmol/L [facility] BUN 19 6 - 25 mg/dL [facility] Creatinine 1.11 0.80 - 1.30 mg/dL [facility] Glucose 126 70 - 199 mg/dL [facility] Comment: Interpretive Data Fasting glucose >/= 126 mg/dl is diagnostic for diabetes. Fasting is defined as no caloric intake for at least 8 hours. Fasting glucose between 100 mg/dl to 125 mg/dl is diagnostic of prediabetes. In a patient with classic symptoms of hyperglycemia or hyperglycemic crisis, a random glucose >/= 200 mg/dl is diagnostic for diabetes. In the absence of unequivocal hyperglycemia, results should be confirmed by repeat testing. The classification and Diagnosis of Diabetes Diabetes Care 2021; 46: S19-S40. Current interpretive data was last revised 2022. Calcium 9.4 8.5 - 10.3 mg/dL [facility] Blood 12/30/2024 12:1 2 AM CDT 12/30/2024 12:40 AM CDT Magy Kaur FIELD CONSULTANT LAB BLOOD ORDERABLES F inal Result Performing Organization Address [facility] Co de Phone Number [facility] Department [place] [address] * Oxyhemoglobin, central venous (12/29/2024 9:22 PM CDT) Oxyhemoglobin, CV 59.4 % Comment: Interpretive Data No reference range established. Current interpretive data was last revised 2019. Blood 12/29/2024 9:22 PM CDT 12/29/2024 9:44 PM CDT us Magy Lux Annettemagdalena FIELD CONSULTANT LAB BLOOD ORDERABLES F inal Result [facility] Department [place] [address] * XR Chest 1 View (12/29/2024 8:27 PM CDT) Anatomical Region Laterality Modality Body, Chest N/A Computed Radiogr aphy 12/30/2024 6:48 AM CDT Impressions 12/30/2024 6:48 AM CDT Sternal fixation plates, left atrial appendage clip, and tracheostomy tube again seen. Removal of [place] catheter. Right internal jugular catheter tip in superior vena cava. Gastric tube tip in peripyloric region. Mediastinal drain, pericardial drain, left thoracostomy tube, and epicardial pacing wires still present. Stable cardiomediastinal silhouette. Unchanged mild to moderate atelectasis in left lower lung. Lateral left basilar lucency that may represent lung or a small basilar pneumothorax is unchanged. Mild right basilar atelectasis. No right pneumothorax. Electronically signed by: Yaya Ahumada M.D. Narrative 12/30/2024 6:48 AM CDT EXAMINATION: 1 view chest radiograph COMPARISON: 12/28/2024 Procedure Note Yaya Ahumada MD - 12/30/2024 EXAMINATION: 1 view chest radiograph COMPARISON: 12/28/2024 IMPRESSION: Sternal fixation plates, left atrial appendage clip, and tracheostomy tube again seen. Removal of [place] catheter. Right internal jugular catheter tip in superior vena cava. Gastric tube tip in peripyloric region. Mediastinal drain, pericardial drain, left thoracostomy tube, and epicardial pacing wires still present. Stable cardiomediastinal silhouette. Unchanged mild to moderate atelectasis in left lower lung. Lateral left basilar lucency that may represent lung or a small basilar pneumothorax is unchanged. Mild right basilar atelectasis. No right pneumothorax. Electronically signed by: Yaya Ahumada M.D. Mary Swift FIELD CONSULTANT IMG XR PROCEDURES F inal Result * POCT glucose (12/29/2024 7:43 PM CDT) [facility] Glucose, POC 131 70 - 199 mg/dL Blood 12/29/2024 7:43 PM CDT 12/29/2024 7:43 PM CDT Parth Dalton MD LAB POCT ORDERABLES - DEVICE Final Result [facility] Department [place] [address] * (ABNORMAL) POC Blood Gas and Chemistries, Arterial - (12/29/2024 6:27 PM CDT) [facility] pH, Art POC 7.34(L) 7.35 - 7.45 pCO2, Art POC 39 35 - 45 mmHg [facility] pO2, Art POC 91 83 - 108 mmHg [facility] Na, POC 140 135 - 145 mmol/L [facility] K POC 4.1 3.3 - 4.9 mmol/L [facility] Comment: Interpretive Data Not all point of care methods assess for hemolysis. Confirm with instrument and retest K+ if not consistent with clinical signs and symptoms. Current Interpretive Data was last revised on 2023. Cl, POC 113(H) 97 - 110 mmol/L [facility] Ionized Ca, POC 4.64 4.50 - 5.10 mg/dL [facility] Glucose, POC 126 70 - 199 mg/dL [facility] Lactate POC 1.1 0.7 - 2.0 mmol/L [facility] SO2 (felipe) arterial 99(H) 90 - 95 % [facility] Base excess, POC -4.4 mmol/L [facility] HCO3, Art POC 21 20 - 30 mmol/L [facility] Hct, POC 28.0(L) 41.4 - 51.6 % [facility] Total Hb, POC 9.3(L) 13.8 - 17.2 g/dL [facility] Blood 12/29/2024 6:27 PM CDT 12/29/2024 6:27 PM CDT Result [facility] Parth Dalton MD LAB POCT ORDERABLES - DEVICE Final Result Performing Organization Address [facility] Co de Phone Number [facility] [place] [address] * POCT glucose (12/29/2024 4:05 PM CDT) Glucose, POC 131 70 - 199 mg/dL Blood 12/29/2024 4:05 PM CDT 12/29/2024 4:05 PM CDT Result [facility] Parth Dalton MD LAB POCT ORDERABLES - DEVICE Final Result Performing Organization Address [facility] de Phone Number [facility] [place] [address] * Oxyhemoglobin, central venous (12/29/2024 4:00 PM CDT) Oxyhemoglobin, CV 68.2 % Comment: Interpretive Data No reference range established. Current interpretive data was last revised 2019. Blood 12/29/2024 4:00 PM CDT 12/29/2024 4:15 PM CDT Result [facility] Magy Kaur FIELD CONSULTANT LAB BLOOD ORDERABLES F inal Result Performing Organization Address [facility] Co de Phone Number [facility] [place] [address] * Potassium, whole blood (12/29/2024 4:00 PM CDT) Potassium, bld 4.3 3.3 - 4.9 mmol/L Blood 12/29/2024 4:00 PM CDT 12/29/2024 4:16 PM CDT Parth Dalton MD LAB BLOOD ORDERABLES Final Re sult Performing Organization Address [facility] Co de Phone Number [facility] Department [place] [address] * eGFR (12/29/2024 4:00 PM CDT) eGFR 61 >=60 mL/min/1. 73 m2 Comment: Interpretive Data Reference Interval Normal >/= 90 mL/min/1.73m2 Mildly decreased* 60 - 89 mL/min/1.73m2 Mildly to moderately decreased 45 - 59 mL/min/1.73m2 Moderately to severely decreased 30 - 44 mL/min/1.73m2 Severely decreased 15 - 29 mL/min/1.73m2 Kidney Failure < 15 mL/min/1.73m2 *Relative to young adult level Estimated glomerular filtration rate is determined by the 2020 CKD-EPI equation recommended by the National Kidney Foundation (A Unifying Approach to GFR Estimation: Recommendations of the NKF-ASK Task Force on Reassessing the Inclusion of Race in Diagnosing Kidney Disease, JASN 2020). The CKD-EPI equation should not be used for patients with unstable renal function and has not been validated in children and those over 70. Current interpretive data was last reviewed 2021. Blood 12/29/2024 4:00 PM CDT 12/29/2024 4:22 PM CDT us Parth Dalton MD LAB BLOOD ORDERABLES Final Re sult Performing Organization Address [facility] Co de Phone Number [facility] Department [place] [address] * Triglycerides (12/29/2024 4:00 PM CDT) Triglycerides 146 <=149 mg/dL Comment: Interpretive Data Ages < or = 9 years Acceptable: <75 mg/dL Borderline high: 75-99 mg/dL High: >or= 100 mg/dL Ages 10 to 20 years Acceptable: <90 mg/dL Borderline high: 90-129 mg/dL High: >or= 130 mg/dL Ages > or = 20 years Desirable: <150 mg/dL Borderline high: 150-199 mg/dL High: 200-499 mg/dL Very high: >or= 499 mg/dL Literature References: 1. Expert Panel on Integrated Guidelines for Cardiovascular Health and Risk Reduction in Children and Adolescents. Pediatrics 2011;128:S213 2. NCEP Expert Panel. Circulation 2004;110:227 Current Interpretive Data was last revised on 2018. Blood 12/29/2024 4:00 PM CDT 12/29/2024 4:16 PM CD[address]ative [facility] - 12/29/2024 4:52 PM CDT While on propofol infusion. us Magy Kaur FIELD CONSULTANT LAB BLOOD ORDERABLES F inal Result [facility] Department of Laboratories [place], [place] [id number] * (ABNORMAL) Magnesium (12/29/2024 4:00 PM CDT) Pathologist [facility] Magnesium 2.9(H) 1.4 - 2.5 mg/dL Blood 12/29/2024 4:00 PM CDT 12/29/2024 4:22 PM CDT us Seema Palma DNP LAB BLOOD ORDERABLES Fi nal Result [facility] Department [place] [address] * (ABNORMAL) Basic metabolic panel (12/29/2024 4:00 PM CDT) Sodium 144 135 - 145 mmol/L Potassium, pl 4.6 3.3 - 4.9 mmol/L [facility] Chloride 111(H) 97 - 110 mmol/L [facility] CO2 24 22 - 32 mmol/L [facility] Anion gap 9 2 - 15 mmol/L [facility] BUN 21 6 - 25 mg/dL [facility] Creatinine 1.24 0.80 - 1.30 mg/dL [facility] Glucose 121 70 - 199 mg/dL [facility] Comment: Interpretive Data Fasting glucose >/= 126 mg/dl is diagnostic for diabetes. Fasting is defined as no caloric intake for at least 8 hours. Fasting glucose between 100 mg/dl to 125 mg/dl is diagnostic of prediabetes. In a patient with classic symptoms of hyperglycemia or hyperglycemic crisis, a random glucose >/= 200 mg/dl is diagnostic for diabetes. In the absence of unequivocal hyperglycemia, results should be confirmed by repeat testing. The classification and Diagnosis of Diabetes Diabetes Care 202; 46: S19-S40. Current interpretive data was last revised 2022. Calcium 8.5 8.5 - 10.3 mg/dL [facility] Blood 12/29/2024 4:00 PM CDT 12/29/2024 4:16 PM CDT Parth Dalton MD LAB BLOOD ORDERABLES Final Re sult Performing Organization Address City/[facility]/ZIP Co de Phone Number [facility] Department [place] [address] * POCT glucose (12/29/2024 11:57 AM CDT) Glucose, POC 111 70 - 199 mg/dL Blood 12/29/2024 11:5 7 AM CDT 12/29/2024 11:57 AM CDT us Parth Dalton MD LAB POCT ORDERABLES - DEVICE Final Result Performing Organization Address [facility]/ZIP Co de Phone Number [facility] Department [place] [address] * ECG 12 lead (12/29/2024 10:15 AM CDT) Ventricular Rate EKG/Min 95 BPM [facility] Atrial Rate 95 BPM [facility] OR-Interval (MSEC) 170 ms [facility] QRS-Interval (MSEC) 80 ms [facility] QT-Interval (MSEC) 368 ms [facility] QTc 462 ms [facility] P Moffit 38 degrees [facility] R Moffit -31 degrees [facility] T Moffit -6 degrees [facility] Diagnosis Sinus rhythm with occasional ventricular-pac ed complexes and with occasional Premature ventricular complexes and Premature atrial complexes Left axis deviation Inferior infarct , age undetermined ST & T wave abnormality, consider anterior ischemia Abnormal ECG When compared with ECG of 26-DEC-2024 13:43, Electronic ventricular pacemaker has replaced Atrial fibrillation Confirmed by JENAE GRACE M.D ([id number]) on 01/01/2025 6:10:53 PM [facility] 12/29/2024 10:1 5 AM CDT 01/01/2025 6:10 PM CDT us Magy Kaur FIELD CONSULTANT ECG ORDERABLES Final Result [facility] * Critical Care (12/29/2024 8:27 AM CDT) Narrative Brandt Jesus MD - 12/29/2024 8:27 AM CDT Brandt Jesus MD 12/30/2024 1:36 PM Critical Care Performed by: Seema Palma DNP Authorized by: Seema Palma DNP CRITICAL CARE: Team: 83 CTICU Shift: AM Level of Billing: Critical Care My time spent with this patient was 80 minutes: Critical Provider Statement: I have seen and examined the patient on this day of service. I have reviewed and confirmed the history, physical exam, laboratory and radiologic data as documented in the signed ICU note. I have reviewed and discussed my treatment plan with the ICU team and other medical/revenue cycle consultant staff, making frequent assessments and decisions regarding this patient's complex medical care. Critical Care time was exclusive of time spent performing separately billed procedures, treating other patients, and teaching. This time was in addition to and separate from critical care provided by other practitioners in my group on this day of service. Critical Care was necessary to treat or prevent imminent or life-threatening deterioration of the following conditions: I spent time reviewing and interpreting data from bedside monitors, laboratory results, and imaging, I spent time discussing the management of this critically ill patient with consultants and the medical staff and I spent time documenting in the medical record us Seema Palma DNP IN CLINIC/BEDSIDE ORDER OVIDIO Final Result * Oxyhemoglobin, pulmonary artery (12/29/2024 7:51 AM CDT) Oxyhemoglobin, PA 62.0 % Comment: Interpretive Data No reference range established. Current interpretive data was last revised 2019. Blood 12/29/2024 7:51 AM CDT 12/29/2024 8:00 AM CDT us Magy Kaur FIELD CONSULTANT LAB BLOOD ORDERABLES F inal Result Performing Organization Address City/[facility]/ZIP Co de Phone Number [facility] Department [place] [address] * Potassium, whole blood (12/29/2024 7:51 AM CDT) Potassium, bld 4.8 3.3 - 4.9 mmol/L Comment:Hemolyzed; results m ay be falsely elevated. Blood 12/29/2024 7:51 AM CDT 12/29/2024 8:00 AM CDT us Jyotsna Salazar FIELD CONSULTANT LAB BLOOD ORDERABLES Final Result [facility] Department [place] [address] * Lactate, whole blood (12/29/2024 7:51 AM CDT) Lactate, bld 1.0 0.7 - 2.0 mmol/L Blood 12/29/2024 7:51 AM CDT 12/29/2024 8:00 AM CDT Seema Palma DNP LAB BLOOD ORDERABLES Fi nal Result Performing Organization Address [facility] Co de Phone Number [facility] [place] [address] * (ABNORMAL) Blood gas, arterial (12/29/2024 7:51 AM CDT) [facility] pH, Art 7.34(L) 7.35 - 7.45 PCO2, Arterial 40 35 - 45 mmHg [facility] PO2, Arterial 150(H) 83 - 108 mmHg [facility] HCO3 Art (Calculated) 22 20 - 30 mmol/L [facility] BE, art -4 mmol/L [facility] Comment: Interpretive Data No Reference Range Established Current Interpretive Data was last revised on 2017 O2 Sat Art (Measured) 99(H) 90 - 95 % [facility] Blood 12/29/2024 7:51 AM CDT 12/29/2024 8:00 AM CDT Result [facility] Magy Kaur FIELD CONSULTANT LAB BLOOD ORDERABLES F inal Result Performing Organization Address [facility] Co de Phone Number [facility] Department [place] [address] * POCT glucose (12/29/2024 7:50 AM CDT) [facility] Glucose, POC 119 70 - 199 mg/dL Blood 12/29/2024 7:50 AM CDT 12/29/2024 7:50 AM CDT Parth Dalton MD LAB POCT ORDERABLES - DEVICE Final Result Performing Organization Address [facility] Co de Phone Number [facility] [place] [address] * Oxyhemoglobin, pulmonary artery (12/29/2024 5:49 AM CDT) Oxyhemoglobin, PA 55.8 % Comment: Interpretive Data No reference range established. Current interpretive data was last revised 2019. Blood 12/29/2024 5:49 AM CDT 12/29/2024 6:01 AM CDT Magy Kaur FIELD CONSULTANT LAB BLOOD ORDERABLES F inal Result Performing Organization Address City/[facility]/[place] [address] * Transfuse RBC (12/29/2024 4:50 AM CDT) Blood Mary Swift FIELD CONSULTANT BLOOD TRANSFUSION [place] [address] * POCT glucose (12/29/2024 3:44 AM CDT) [facility] Glucose, POC 139 70 - 199 mg/dL Blood 12/29/2024 3:44 AM CDT 12/29/2024 3:44 AM CDT Parth Dalton MD LAB POCT ORDERABLES - DEVICE Final Result Performing Organization Address City/[facility]/[place] [address] * Prepare RBC: 1 Units (12/29/2024 2:27 AM CDT) Pathologist [facility] Product code [id number] Unit Number [id number] [facility] Product Blood Type APOS [facility] Dispense Status PRESUMED TRANSFUSED [facility] Blood 12/29/2024 2:27 AM CDT 12/29/2024 2:26 AM CDT Narrative [facility] - 12/29/2024 4:01 PM CDT Are special requirements needed? (All products are leukoreduced and CMV- safe)- >No Date required:-[id number] LRRBC # of [id number] Reasons:-Cardiovascular disease, Hgb <8 g/dL} Mary Swift FIELD CONSULTANT BLOOD BANK PRODUCT ORDERABLES Final Result [facility] Department [place] [address] * Potassium, whole blood (12/29/2024 12:18 AM CDT) Potassium, bld 4.6 3.3 - 4.9 mmol/L Blood 12/29/2024 12:1 8 AM CDT 12/29/2024 12:26 AM CDT Magy Kaur FIELD CONSULTANT LAB BLOOD ORDERABLES F inal Result Performing Organization Address City/[facility]/ZIP Co de Phone Number [facility] Department [place] [address] * eGFR (12/29/2024 12:18 AM CDT) eGFR 62 >=60 mL/min/1. 73 m2 Comment: Interpretive Data Reference Interval Normal >/= 90 mL/min/1.73m2 Mildly decreased* 60 - 89 mL/min/1.73m2 Mildly to moderately decreased 45 - 59 mL/min/1.73m2 Moderately to severely decreased 30 - 44 mL/min/1.73m2 Severely decreased 15 - 29 mL/min/1.73m2 Kidney Failure < 15 mL/min/1.73m2 *Relative to young adult level Estimated glomerular filtration rate is determined by the 2020 CKD-EPI equation recommended by the National Kidney Foundation (A Unifying Approach to GFR Estimation: Recommendations of the NKF-ASK Task Force on Reassessing the Inclusion of Race in Diagnosing Kidney Disease, JASN 2020). The CKD-EPI equation should not be used for patients with unstable renal function and has not been validated in children and those over 70. Current interpretive data was last reviewed 2021. Blood 12/29/2024 12:1 8 AM CDT 12/29/2024 12:34 AM CDT Magy Kaur FIELD CONSULTANT LAB BLOOD ORDERABLES F inal Result [facility] Department [place] [address] * (ABNORMAL) CBC without differential (12/29/2024 12:18 AM CDT) WBC 4.90 3.80 - 9.90 K/cumm Hgb 7.7(L) 13.0 - 17.5 g/dL [facility] Hct 23.2(L) 38.9 - 50.3 % [facility] Plt 94(L) 150 - 400 K/cumm [facility] MPV 10.1 9.1 - 12.3 fL [facility] RBC 2.24(L) 4.30 - 5.80 M/cumm [facility] MCV 103.6(H) 81.3 - 96.4 fL [facility] MCH 34.4(H) 27.1 - 33.3 pg [facility] MCHC 33.2 32.3 - 35.7 g/dL [facility] RDW CV 14.1 11.1 - 14.9 % [facility] RDW SD 53.0(H) 35.7 - 48.1 fL [facility] NRBC abs 0.00 0.00 - 0.01 K/cumm [facility] Blood 12/29/2024 12:1 8 AM CDT 12/29/2024 12:33 AM CDT Magy Kaur NP LAB BLOOD ORDERABLES F inal Result Performing Organization Address [facility] [place] [address] * Type and screen (12/29/2024 12:18 AM CDT) Becca, indirect Negative ABO Rh A Positive [facility] Blood 12/29/2024 12:1 8 AM CDT 12/29/2024 12:41 AM CDT Narrative [facility] - 12/29/2024 1:41 AM CDT Has the patient had Daratumumab or Isatuximab in the past 6 months?->Unknown Magy Kaur FIELD CONSULTANT LAB BLOOD BANK TEST OR DERABLES Final Result Performing Organization Address [facility] [place] [address] * Phosphorus (12/29/2024 12:18 AM CDT) Phosphorus, pl 2.5 2.3 - 4.5 mg/dL Blood 12/29/2024 12:1 8 AM CDT 12/29/2024 12:34 AM CDT Magy Kaur NP LAB BLOOD ORDERABLES F inal Result Performing Organization Address [facility] [place] [address] * Magnesium (12/29/2024 12:18 AM CDT) Magnesium 2.5 1.4 - 2.5 mg/dL Blood 12/29/2024 12:1 8 AM CDT 12/29/2024 12:34 AM CDT Magy Kaur FIELD CONSULTANT LAB BLOOD ORDERABLES F inal Result Performing Organization Address [facility] de Phone Number [facility] Department [place] [address] * (ABNORMAL) Blood gas, arterial (12/29/2024 12:18 AM CDT) pH, Art 7.40 7.35 - 7.45 PCO2, Arterial 35 35 - 45 mmHg [facility] PO2, Arterial 135(H) 83 - 108 mmHg [facility] HCO3 Art (Calculated) 23 20 - 30 mmol/L [facility] BE, art -2 mmol/L [facility] Comment: Interpretive Data No Reference Range Established Current Interpretive Data was last revised on 2017 O2 Sat Art (Measured) 99(H) 90 - 95 % [facility] Blood 12/29/2024 12:1 8 AM CDT 12/29/2024 12:26 AM CDT Magy Kaur FIELD CONSULTANT LAB BLOOD ORDERABLES F inal Result Performing Organization Address [facility] de Phone Number [facility] Department [place] [address] * (ABNORMAL) Basic metabolic panel (12/29/2024 12:18 AM CDT) [facility] Sodium 142 135 - 145 mmol/L Potassium, pl 4.9 3.3 - 4.9 mmol/L [facility] Chloride 110 97 - 110 mmol/L [facility] CO2 23 22 - 32 mmol/L [facility] Anion gap 9 2 - 15 mmol/L [facility] BUN 19 6 - 25 mg/dL [facility] Creatinine 1.23 0.80 - 1.30 mg/dL [facility] Glucose 128 70 - 199 mg/dL [facility] Comment: Interpretive Data Fasting glucose >/= 126 mg/dl is diagnostic for diabetes. Fasting is defined as no caloric intake for at least 8 hours. Fasting glucose between 100 mg/dl to 125 mg/dl is diagnostic of prediabetes. In a patient with classic symptoms of hyperglycemia or hyperglycemic crisis, a random glucose >/= 200 mg/dl is diagnostic for diabetes. In the absence of unequivocal hyperglycemia, results should be confirmed by repeat testing. The classification and Diagnosis of Diabetes Diabetes Care 2021; 46: S19-S40. Current interpretive data was last revised 2022. Calcium 8.4(L) 8.5 - 10.3 mg/dL [facility] Blood 12/29/2024 12:1 8 AM CDT 12/29/2024 12:34 AM CDT Magy Kaur FIELD CONSULTANT LAB BLOOD ORDERABLES F inal Result Performing Organization Address City/[facility]/ZIP Co de Phone Number [facility] Department [place] [address] * POCT glucose (12/29/2024 12:17 AM CDT) [facility] Signature Glucose, POC 154 70 - 199 mg/dL Blood 12/29/2024 12:1 7 AM CDT 12/29/2024 12:17 AM CDT Parth Dalton MD LAB POCT ORDERABLES - DEVICE Final Result Performing Organization Address City/[facility] Co de Phone Number [facility] Department [place] [address] * XR Chest 1 View (12/28/2024 9:38 PM CDT) Anatomical Region Laterality Modality Body, Chest N/A Computed Radiogr aphy 12/29/2024 7:14 AM CDT Impressions 12/29/2024 7:14 AM CDT The current study is compared with the prior radiograph dated 12/28/2024. Tracheostomy is in place. Sternal plates are present. A Scotland-Salma catheter is in place, tip overlies the main pulmonary artery.. A mediastinal and a pericardial drain are in place.. A right internal jugular catheter is in place, tip overlies the superior vena cava.. Left chest tube present. Partial volume loss seen in the left lower lobe. There is probably a small left basilar pneumothorax. No right pneumothorax. There may be a very tiny right effusion. Small left effusion present. No edema. Heart is moderately enlarged Electronically signed by: Meghan Rios M.D. Narrative 12/29/2024 7:14 AM CDT EXAMINATION: 1 view chest radiograph Procedure Note Meghan Rios MD - 12/29/2024 EXAMINATION: 1 view chest radiograph IMPRESSION: The current study is compared with the prior radiograph dated 12/28/2024. Tracheostomy is in place. Sternal plates are present. A Scotland-Salma catheter is in place, tip overlies the main pulmonary artery.. A mediastinal and a pericardial drain are in place.. A right internal jugular catheter is in place, tip overlies the superior vena cava.. Left chest tube present. Partial volume loss seen in the left lower lobe. There is probably a small left basilar pneumothorax. No right pneumothorax. There may be a very tiny right effusion. Small left effusion present. No edema. Heart is moderately enlarged Electronically signed by: Meghan Rios M.D. Mary Swift FIELD CONSULTANT IMG XR PROCEDURES F inal Result * Infection Prevention Blanche auris PCR, surveillance Axilla/Groin (12/28/2024 8:22 PM CDT) Blanche auris DNA Not Detected Not Detected [facility] Comment: Interpretive Data Testing performed by [facility] using the Daquan flaquita 6800 Blanche auris assay. This assay detects DNA from Blanche auris using Real-Time PCR. This assay is laboratory developed and is not cleared by the [place] Food and Drug Administration. The performance characteristics have been verified by the [facility]. Axilla/Groin 12/28/2024 8:22 PM CDT 12/28/2024 9:23 PM CDT Narrative CYNTH[facility] - 12/29/2024 12:36 PM CDT Order placed by [facility] due to ring surveillance. us Instant Order Generic Provider LAB MICROBIOLOGY - GENERAL ORDERABLES Final Result Performing Organization Address [facility] Co de Phone Number [facility] [place] [address] [facility] * (ABNORMAL) Blood gas, arterial (12/28/2024 8:22 PM CDT) pH, Art 7.40 7.35 - 7.45 PCO2, Arterial 34(L) 35 - 45 mmHg [facility] PO2, Arterial 160(H) 83 - 108 mmHg [facility] HCO3 Art (Calculated) 22 20 - 30 mmol/L [facility] BE, art -3 mmol/L [facility] Comment: Interpretive Data No Reference Range Established Current Interpretive Data was last revised on 2017 O2 Sat Art (Measured) 100(H) 90 - 95 % [facility] Blood 12/28/2024 8:22 PM CDT 12/28/2024 8:27 PM CDT us Magy Kaur NP LAB BLOOD ORDERABLES F inal Result Performing Organization Address [facility] Co de Phone Number [facility] Department [place] [address] * POCT glucose (12/28/2024 7:43 PM CDT) Glucose, POC 134 70 - 199 mg/dL Blood 12/28/2024 7:43 PM CDT 12/28/2024 7:43 PM CDT Parth Dalton MD LAB POCT ORDERABLES - DEVICE Final Result Performing Organization Address [facility] Co de Phone Number [facility] [place] [address] * (ABNORMAL) Magnesium (12/28/2024 6:37 PM CDT) Magnesium 2.9(H) 1.4 - 2.5 mg/dL Blood 12/28/2024 6:37 PM CDT 12/28/2024 6:58 PM CDT Magy Kaur NP LAB BLOOD ORDERABLES F inal Result [facility] Department [place] [address] * Critical Care (12/28/2024 6:27 PM CDT) Narrative Brandt Jesus MD - 12/28/2024 6:27 PM CDT Brandt Jesus MD 12/30/2024 1:35 PM Critical Care Performed by: Mary Swift NP Authorized by: Mary Swift NP CRITICAL CARE: Team: 83 CTICU Shift: PM Level of Billing: Critical Care My time spent with this patient was 120 minutes: Critical Provider Statement: I have seen and examined the patient on this day of service. I have reviewed and confirmed the history, physical exam, laboratory and radiologic data as documented in the signed ICU note. I have reviewed and discussed my treatment plan with the ICU team and other medical/revenue cycle consultant staff, making frequent assessments and decisions regarding this patient's complex medical care. Critical Care time was exclusive of time spent performing separately billed procedures, treating other patients, and teaching. This time was in addition to and separate from critical care provided by other practitioners in my group on this day of service. Critical Care was necessary to treat or prevent imminent or life-threatening deterioration of the following conditions: I spent time reviewing and interpreting data from bedside monitors, laboratory results, and imaging, I spent time discussing the management of this critically ill patient with consultants and the medical staff and I spent time documenting in the medical record Mary Swift FIELD CONSULTANT IN CLINIC/BEDSIDE O RDERABLES Final Result * (ABNORMAL) POC Blood Gas and Chemistries, Arterial - (12/28/2024 5:25 PM CDT) Pathologist [facility] pH, Art POC 7.31(L) 7.35 - 7.45 pCO2, Art POC 40 35 - [address] pO2, Art POC 88 83 - 108 mmHg [facility] Na, POC 141 135 - 145 mmol/L [facility] K POC 3.9 3.3 - 4.9 mmol/L [facility] Comment: Interpretive Data Not all point of care methods assess for hemolysis. Confirm with instrument and retest K+ if not consistent with clinical signs and symptoms. Current Interpretive Data was last revised on 2023. Cl, POC 114(H) 97 - 110 mmol/L [facility] Ionized Ca, POC 4.59 4.50 - 5.10 mg/dL [facility] Glucose, POC 122 70 - 199 mg/dL [facility] Lactate POC 1.4 0.7 - 2.0 mmol/L [facility] SO2 (felipe) arterial 98(H) 90 - 95 % [facility] Base excess, POC -5.7 mmol/L [facility] HCO3, Art POC 20 20 - 30 mmol/L [facility] Hct, POC 28.0(L) 41.4 - 51.6 % [facility] Total Hb, POC 9.3(L) 13.8 - 17.2 g/dL [facility] Blood 12/28/2024 5:25 PM CDT 12/28/2024 5:25 PM CDT Parth Dalton MD LAB POCT ORDERABLES - DEVICE Final Result [facility] Department [place] [address] * (ABNORMAL) POC Blood Gas and Chemistries, Arterial - (12/28/2024 4:24 PM CDT) pH, Art POC 7.26(L) 7.35 - 7.45 pCO2, Art POC 45 35 - 45 mmHg [facility] pO2, Art POC 74(L) 83 - [address] [facility] Na, POC 141 135 - 145 mmol/L [facility] K POC 4.3 3.3 - 4.9 mmol/L [facility] Comment: Interpretive Data Not all point of care methods assess for hemolysis. Confirm with instrument and retest K+ if not consistent with clinical signs and symptoms. Current Interpretive Data was last revised on 2023. Cl, POC 114(H) 97 - 110 mmol/L [facility] Ionized Ca, POC 4.70 4.50 - 5.10 mg/dL [facility] Glucose, POC 123 70 - 199 mg/dL [facility] Lactate POC 1.9 0.7 - 2.0 mmol/L [facility] SO2 (felipe) arterial 96(H) 90 - 95 % [facility] Base excess, POC -6.6 mmol/L [facility] HCO3, Art POC 20 20 - 30 mmol/L [facility] Hct, POC 30.0(L) 41.4 - 51.6 % [facility] Total Hb, POC 10.0(L) 13.8 - 17.2 g/dL [facility] Blood 12/28/2024 4:24 PM CDT 12/28/2024 4:24 PM CDT Parth Dalton MD LAB POCT ORDERABLES - DEVICE Final Result [facility] Department [place] [address] * XR Abdomen 1 View AP (12/28/2024 4:16 PM CDT) Anatomical Region Laterality Modality Body, Abdomen N/A Digital Radiogra phy 12/28/2024 4:39 PM CDT Impressions 12/28/2024 4:42 PM CDT Interval advancement of endogastric tube, looping in the stomach with tip and side-port projecting over the gastric body. Chest findings are better evaluated on the contemporaneous chest radiograph. Dictated by: Reinaldo Becerra M.D. The radiology attending physician has personally reviewed this study, and had reviewed and/or edited this written report and agrees with it. Electronically signed by: Bob Falcon M.D. Narrative 12/28/2024 4:42 PM CDT EXAMINATION: Abdomen, one view. 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 Nasogastric tube placement. COMPARISON: 12/28/2024, 3:27 PM Procedure Note Bob Falcon MD - 12/28/2024 EXAMINATION: Abdomen, one view. 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 Nasogastric tube placement. COMPARISON: 12/28/2024, 3:27 PM IMPRESSION: Interval advancement of endogastric tube, looping in the stomach with tip and side-port projecting over the gastric body. Chest findings are better evaluated on the contemporaneous chest radiograph. Dictated by: Reinaldo Becerra M.D. The radiology attending physician has personally reviewed this study, and had reviewed and/or edited this written report and agrees with it. Electronically signed by: Bob Falcon M.D. Magy Kaur FIELD CONSULTANT IMG XR PROCEDURES Raquel l Result * XR Abdomen AP 1 View - KUB (12/28/2024 3:51 PM CDT) Anatomical Region Laterality Modality Body, Abdomen N/A Digital Radiogra phy 12/28/2024 4:03 PM CDT Impressions 12/30/2024 7:28 AM CDT Gastric tube tip at the cardia of the stomach with side-port at the GE junction. Epicardial pacing wires project over the abdomen. Mediastinal and pericardial drainage tubes project across the body. Scotland-Salma catheter projects over the heart. Thoracostomy tube. Sternal plate. Dictated by: Silvio Palafox M.D. The radiology attending physician has personally reviewed this study, and had reviewed and/or edited this written report and agrees with it. Electronically signed by: James Graham M.D. Narrative 12/30/2024 7:28 AM CDT EXAMINATION: Abdomen, one view. HISTORY: Check tube placement. COMPARISON: CT chest abdomen pelvis from 12/24/2024 Procedure Note James Graham MD - 12/30/2024 EXAMINATION: Abdomen, one view. HISTORY: Check tube placement. COMPARISON: CT chest abdomen pelvis from 12/24/2024 IMPRESSION: Gastric tube tip at the cardia of the stomach with side-port at the GE junction. Epicardial pacing wires project over the abdomen. Mediastinal and pericardial drainage tubes project across the body. Scotland-Salma catheter projects over the heart. Thoracostomy tube. Sternal plate. Dictated by: Silvio Palafox M.D. The radiology attending physician has personally reviewed this study, and had reviewed and/or edited this written report and agrees with it. Electronically signed by: James Graham M.D. us Magy Elise Vincent FIELD CONSULTANT IMG XR PROCEDURES Raquel l Result * XR Chest 1 View (12/28/2024 3:50 PM CDT) Anatomical Region Laterality Modality Body, Chest N/A Digital Radiogra phy 12/28/2024 4:20 PM CDT Impressions 12/28/2024 4:20 PM CDT Comparison 12/27/2024 2:58 PM. Tracheostomy tube remains in place. New sternal plates seen. Left atrial appendage clip in place. Scotland-Salma catheter placed with tip projecting over the right ventricular outflow tract. Mediastinal tube, left chest tube in place. Right internal jugular central venous catheter tip overlies the superior vena cava. Gastric tube courses caudal to the diaphragm. Interval widening of the cardiomediastinal silhouette in keeping with postoperative change. New small left pleural effusion seen. Moderate left perihilar and left basilar opacity is new and most compatible with atelectasis, given the decreased size of the left hemithorax. The right lung is clear. No pneumothorax seen. Electronically signed by: Jan Myers M.D. Narrative 12/28/2024 4:20 PM CDT EXAMINATION: 1 view chest radiograph Procedure Note Jan Myers MD - 12/28/2024 EXAMINATION: 1 view chest radiograph IMPRESSION: Comparison 12/27/2024 2:58 PM. Tracheostomy tube remains in place. New sternal plates seen. Left atrial appendage clip in place. Scotland-Salma catheter placed with tip projecting over the right ventricular outflow tract. Mediastinal tube, left chest tube in place. Right internal jugular central venous catheter tip overlies the superior vena cava. Gastric tube courses caudal to the diaphragm. Interval widening of the cardiomediastinal silhouette in keeping with postoperative change. New small left pleural effusion seen. Moderate left perihilar and left basilar opacity is new and most compatible with atelectasis, given the decreased size of the left hemithorax. The right lung is clear. No pneumothorax seen. Electronically signed by: Jan Myers M.D. Parth Dalton MD IMG XR PROCEDURES Final Resul t * (ABNORMAL) POC Blood Gas and Chemistries, Arterial - (12/28/2024 3:42 PM CDT) pH, Art POC 7.26(L) 7.35 - 7.45 pCO2, Art POC 46(H) 35 - 45 mmHg [facility] pO2, Art POC 63(L) 83 - 108 mmHg [facility] Na, POC 143 135 - 145 mmol/L [facility] K POC 4.0 3.3 - 4.9 mmol/L [facility] Comment: Interpretive Data Not all point of care methods assess for hemolysis. Confirm with instrument and retest K+ if not consistent with clinical signs and symptoms. Current Interpretive Data was last revised on 2023. Cl, POC 115(H) 97 - 110 mmol/L [facility] Ionized Ca, POC 4.56 4.50 - 5.10 mg/dL [facility] Glucose, POC 116 70 - 199 mg/dL [facility] Lactate POC 1.9 0.7 - 2.0 mmol/L [facility] SO2 (felipe) arterial 91 90 - 95 % [facility] Base excess, POC -6.3 mmol/L [facility] HCO3, Art POC 21 20 - 30 mmol/L [facility] Hct, POC 30.0(L) 41.4 - 51.6 % [facility] Total Hb, POC 9.9(L) 13.8 - 17.2 g/dL [facility] Blood 12/28/2024 3:42 PM CDT 12/28/2024 3:42 PM CDT Parth Dalton MD LAB POCT ORDERABLES - DEVICE Final Result Performing Organization Address [facility] Co de Phone Number [facility] [place] [address] * Oxyhemoglobin, pulmonary artery (12/28/2024 2:59 PM CDT) Oxyhemoglobin, PA 48.6 % Comment: Interpretive Data No reference range established. Current interpretive data was last revised 2019. Blood 12/28/2024 2:59 PM CDT 12/28/2024 3:04 PM CDT Magy Kaur NP LAB BLOOD ORDERABLES F inal Result Performing Organization Address [facility] Co de Phone Number [facility] [place] [address] * Calcium, ionized, whole blood (12/28/2024 2:59 PM CDT) Ca, ionized, bld 4.65 4.50 - 5.10 mg/dL Blood 12/28/2024 2:59 PM CDT 12/28/2024 3:04 PM CDT Parth Dalton MD LAB BLOOD ORDERABLES Final Re sult Performing Organization Address [facility] [place] [address] * Critical Care (12/28/2024 2:52 PM CDT) Narrative Felix Bustillos MD - 12/28/2024 2:52 PM CDT Felix Bustillos MD 01/02/2025 12:04 PM Critical Care Performed by: Magy Kaur NP Authorized by: Magy Kaur NP CRITICAL CARE: Team: 83 CTICU Shift: AM Level of Billing: Critical Care My time spent with this patient was 100 minutes: Critical Provider Statement: I have seen and examined the patient on this day of service. I have reviewed and confirmed the history, physical exam, laboratory and radiologic data as documented in the signed ICU note. I have reviewed and discussed my treatment plan with the ICU team and other medical/revenue cycle consultant staff, making frequent assessments and decisions regarding this patient's complex medical care. Critical Care time was exclusive of time spent performing separately billed procedures, treating other patients, and teaching. This time was in addition to and separate from critical care provided by other practitioners in my group on this day of service. Critical Care was necessary to treat or prevent imminent or life-threatening deterioration of the following conditions: I spent time reviewing and interpreting data from bedside monitors, laboratory results, and imaging, I spent time discussing the management of this critically ill patient with consultants and the medical staff and I spent time documenting in the medical record Magy Kaur NP [facility] Final Result * eGFR (12/28/2024 2:49 PM CDT) eGFR 73 >=60 mL/min/1. 73 m2 Comment: Interpretive Data Reference Interval Normal >/= 90 mL/min/1.73m2 Mildly decreased* 60 - 89 mL/min/1.73m2 Mildly to moderately decreased 45 - 59 mL/min/1.73m2 Moderately to severely decreased 30 - 44 mL/min/1.73m2 Severely decreased 15 - 29 mL/min/1.73m2 Kidney Failure < 15 mL/min/1.73m2 *Relative to young adult level Estimated glomerular filtration rate is determined by the 2020 CKD-EPI equation recommended by the National Kidney [employer] (A Unifying Approach to GFR Estimation: Recommendations of the NKF-ASK Task Force on Reassessing the Inclusion of Race in Diagnosing Kidney Disease, JASN 2020). The CKD-EPI equation should not be used for patients with unstable renal function and has not been validated in children and those over 70. Current interpretive data was last reviewed 2021. Blood 12/28/2024 2:49 PM CDT 12/28/2024 3:07 PM CDT us Parth Dalton MD LAB BLOOD ORDERABLES Final Re sult Performing Organization Address [facility] de Phone Number [facility] [place] [address] * aPTT (12/28/2024 2:49 PM CDT) aPTT 36 26 - 38 sec Comment: Interpretive Data Heparin therapeutic range: 66.0 - 100.0 seconds. Range based on correlation with therapeutic heparin activity range of 0.3 - 0.7 Units/mL. Current interpretive data was last revised on 2023. Blood 12/28/2024 2:49 PM CDT 12/28/2024 3:07 PM CDT us Parth Dalton MD LAB BLOOD ORDERABLES Final Re sult Performing Organization Address [facility] [place] [address] * Protime-INR (12/28/2024 2:49 PM CDT) PT 13.1 10.2 - 13.5 sec INR 1.16 0.90 - 1.20 [facility] Comment: Interpretive data Oral anticoagulant therapeutic ranges: Venous thromboembolism prophylaxis or treatment: 2.0-3.0 CARDIOLOGY Standard range: 2.0-3.0 High-intensity range: 2.5-3.5 Refer to indication-specific guidelines for appropriate target ranges for prosthetic heart valve replacement. Current interpretive data was last revised on 2019. Blood 12/28/2024 2:49 PM CDT 12/28/2024 3:07 PM CDT Result Shanice Dalton MD LAB BLOOD ORDERABLES Final Re sult [facility] Department [place] [address] * (ABNORMAL) CBC without differential (12/28/2024 2:49 PM CDT) WBC 4.40 3.80 - 9.90 K/cumm Hgb 9.4(L) 13.0 - 17.5 g/dL [facility] Comment:Hemoglobin delta due to surgical procedure. Hct 27.2(L) 38.9 - 50.3 % [facility] Plt 93(L) 150 - 400 K/cumm [facility] MPV 10.1 9.1 - 12.3 fL [facility] RBC 2.64(L) 4.30 - 5.80 M/cumm [facility] MCV 103.0(H) 81.3 - 96.4 fL [facility] MCH 35.6(H) 27.1 - 33.3 pg [facility] MCHC 34.6 32.3 - 35.7 g/dL [facility] RDW CV 14.3 11.1 - 14.9 % [facility] RDW SD 53.7(H) 35.7 - 48.1 fL [facility] NRBC abs 0.00 0.00 - 0.01 K/cumm [facility] Blood 12/28/2024 2:49 PM CDT 12/28/2024 3:07 PM CDT Parth Dalton MD LAB BLOOD ORDERABLES Final Re sult [facility] Department [place] [address] * (ABNORMAL) Magnesium (12/28/2024 2:49 PM CDT) Magnesium 2.9(H) 1.4 - 2.5 mg/dL Blood 12/28/2024 2:49 PM CDT 12/28/2024 3:07 PM CDT Parth Dalton MD LAB BLOOD ORDERABLES Final Re sult Performing Organization Address City/[facility]/ZIP Co de Phone Number [facility] Department [place] [address] * (ABNORMAL) Basic metabolic panel (12/28/2024 2:49 PM CDT) Sodium 145 135 - 145 mmol/L Potassium, pl 4.1 3.3 - 4.9 mmol/L [facility] Comment:Hemolyzed; Potassium value may be falsely elevated by as much as 0.3-0.5 mmol/L. Suggest redraw and reanalysis. Chloride 112(H) 97 - 110 mmol/L [facility] CO2 21(L) 22 - 32 mmol/L [facility] Anion gap 12 2 - 15 mmol/L [facility] BUN 18 6 - 25 mg/dL [facility] Creatinine 1.07 0.80 - 1.30 mg/dL [facility] Glucose 92 70 - 199 mg/dL [facility] Comment: Interpretive Data Fasting glucose >/= 126 mg/dl is diagnostic for diabetes. Fasting is defined as no caloric intake for at least 8 hours. Fasting glucose between 100 mg/dl to 125 mg/dl is diagnostic of prediabetes. In a patient with classic symptoms of hyperglycemia or hyperglycemic crisis, a random glucose >/= 200 mg/dl is diagnostic for diabetes. In the absence of unequivocal hyperglycemia, results should be confirmed by repeat testing. The classification and Diagnosis of Diabetes Diabetes Care 2021; 46: S19-S40. Current interpretive data was last revised 2022. Calcium 8.5 8.5 - 10.3 mg/dL [facility] Blood 12/28/2024 2:49 PM CDT 12/28/2024 3:07 PM CDT Parth Dalton MD LAB BLOOD ORDERABLES Final Re sult Performing Organization Address City/[facility]/ZIP Co de Phone Number [facility] Department [place] [address] * (ABNORMAL) POC Blood Gas and Chemistries, Arterial - (12/28/2024 2:38 PM CDT) pH, Art POC 7.31(L) 7.35 - 7.45 pCO2, Art POC 45 35 - 45 mmHg [facility] pO2, Art POC 94 83 - [address] [facility] Na, POC 142 135 - 145 mmol/L [facility] K POC 3.8 3.3 - 4.9 mmol/L [facility] Comment: Interpretive Data Not all point of care methods assess for hemolysis. Confirm with instrument and retest K+ if not consistent with clinical signs and symptoms. Current Interpretive Data was last revised on 2023. Cl, POC 114(H) 97 - 110 mmol/L [facility] Ionized Ca, POC 4.81 4.50 - 5.10 mg/dL [facility] Glucose, POC 92 70 - 199 mg/dL [facility] Lactate POC 0.8 0.7 - 2.0 mmol/L [facility] SO2 (felipe) arterial 98(H) 90 - 95 % [facility] Base excess, POC -3.5 mmol/L [facility] HCO3, Art POC 23 20 - 30 mmol/L [facility] Hct, POC 29.0(L) 41.4 - 51.6 % [facility] Total Hb, POC 9.7(L) 13.8 - 17.2 g/dL [facility] Blood 12/28/2024 2:38 PM CDT 12/28/2024 2:38 PM CDT us Parth Dalton MD LAB POCT ORDERABLES - DEVICE Final Result [facility] Department [place] [address] * POCT heparin/ACT CPB (12/28/2024 12:41 PM CDT) Heparin POC 0.0 units/mL ACT, CPB 116 112 - 174 sec [facility] Blood 12/28/2024 12:4 1 PM CDT 12/28/2024 12:41 PM CDT Parth Dalton MD LAB POCT ORDERABLES - DEVICE Final Result Performing Organization Address [facility] Co de Phone Number [facility] [place] [address] * (ABNORMAL) POCT prothrombin time (12/28/2024 12:37 PM CDT) PT, POC 21.1(H) 11.7 - 16.6 sec INR, POC 1.6(H) 0.9 - 1.2 [facility] Blood 12/28/2024 12:3 7 PM CDT 12/28/2024 12:37 PM CDT Parth Dalton MD LAB POCT ORDERABLES - DEVICE Final Result Performing Organization Address [facility] Co de Phone Number [facility] [place] [address] * POCT Partial thromboplastin time (PTT) (12/28/2024 12:37 PM CDT) APTT, POC 33.4 32.5 - 46.1 sec Blood 12/28/2024 12:3 7 PM CDT 12/28/2024 12:37 PM CDT Parth Dalton MD LAB POCT ORDERABLES - DEVICE Final Result Performing Organization Address City/[facility] [place] [address] * (ABNORMAL) POCT hemoglobin, hematocrit and platelet count (12/28/2024 12:35 PM CDT) Hgb, POC 9.0(L) 13.0 - 17.5 g/dL Hematocrit POC 28.0(L) 38.9 - 50.3 % [facility] Platelet POC 76(L) 150 - 400 K/cumm [facility] Blood 12/28/2024 12:3 5 PM CDT 12/28/2024 12:35 PM CDT us Parth Dalton MD LAB POCT ORDERABLES - DEVICE Final Result [facility] Department [place] [address] * (ABNORMAL) POC Blood Gas and Chemistries, Arterial - (12/28/2024 12:34 PM CDT) pH, Art POC 7.35 7.35 - 7.45 pCO2, Art POC 39 35 - 45 mmHg [facility] pO2, Art POC 137(H) 83 - 108 mmHg [facility] Na, POC 143 135 - 145 mmol/L [facility] K POC 4.2 3.3 - 4.9 mmol/L [facility] Comment: Interpretive Data Not all point of care methods assess for hemolysis. Confirm with instrument and retest K+ if not consistent with clinical signs and symptoms. Current Interpretive Data was last revised on 2023. Cl, POC 112(H) 97 - 110 mmol/L [facility] Ionized Ca, POC 5.65(H) 4.50 - 5.10 mg/dL [facility] Glucose, POC 113 70 - 199 mg/dL [facility] Lactate POC 1.3 0.7 - 2.0 mmol/L [facility] SO2 (felipe) arterial 100(H) 90 - 95 % [facility] Base excess, POC -3.8 mmol/L [facility] HCO3, Art POC 22 20 - 30 mmol/L [facility] Hct, POC 29.0(L) 41.4 - 51.6 % [facility] Total Hb, POC 9.7(L) 13.8 - 17.2 g/dL [facility] Blood 12/28/2024 12:3 4 PM CDT 12/28/2024 12:34 PM CDT Parth Dalton MD LAB POCT ORDERABLES - DEVICE Final Result Performing Organization Address City/[facility]/ZIP Co de Phone Number [facility] Department [place] [address] * (ABNORMAL) POC Blood Gas and Chemistries, Arterial - (12/28/2024 12:16 PM CDT) pH, Art POC 7.39 7.35 - 7.45 pCO2, Art POC 38 35 - 45 mmHg [facility] pO2, Art POC 318(H) 83 - 108 mmHg [facility] Na, POC 141 135 - 145 mmol/L [facility] K POC 4.9 3.3 - 4.9 mmol/L [facility] Comment: Interpretive Data Not all point of care methods assess for hemolysis. Confirm with instrument and retest K+ if not consistent with clinical signs and symptoms. Current Interpretive Data was last revised on 2023. Cl, POC 113(H) 97 - 110 mmol/L [facility] Ionized Ca, POC 4.33(L) 4.50 - 5.10 mg/dL [facility] Glucose, POC 116 70 - 199 mg/dL [facility] Lactate POC 1.3 0.7 - 2.0 mmol/L [facility] SO2 (felipe) arterial 100(H) 90 - 95 % [facility] Base excess, POC -1.7 mmol/L [facility] HCO3, Art POC 23 20 - 30 mmol/L [facility] Hct, POC 28.0(L) 41.4 - 51.6 % [facility] Total Hb, POC 9.4(L) 13.8 - 17.2 g/dL [facility] Blood 12/28/2024 12:1 6 PM CDT 12/28/2024 12:16 PM CDT Parth Dalton MD LAB POCT ORDERABLES - DEVICE Final Result [facility] [place] [address] * (ABNORMAL) POCT heparin/ACT CPB (12/28/2024 11:52 AM CDT) Pathologist [facility] Heparin POC <2.8 units/mL ACT, CPB 579(H) 112 - 174 sec [facility] Blood 12/28/2024 11:5 2 AM CDT 12/28/2024 11:52 AM CDT us Parth Dalton MD LAB POCT ORDERABLES - DEVICE Final Result [facility] [place] [address] * (ABNORMAL) POC Blood Gas and Chemistries, Arterial - (12/28/2024 11:44 AM CDT) [facility] pH, Art POC 7.41 7.35 - 7.45 pCO2, Art POC 37 35 - 45 mmHg [facility] pO2, Art POC 296(H) 83 - 108 mmHg [facility] Na, POC 139 135 - 145 mmol/L [facility] K POC 4.9 3.3 - 4.9 mmol/L [facility] Comment: Interpretive Data Not all point of care methods assess for hemolysis. Confirm with instrument and retest K+ if not consistent with clinical signs and symptoms. Current Interpretive Data was last revised on 2023. Cl, POC 113(H) 97 - 110 mmol/L [facility] Ionized Ca, POC 4.34(L) 4.50 - 5.10 mg/dL [facility] Glucose, POC 115 70 - 199 mg/dL [facility] Lactate POC 1.0 0.7 - 2.0 mmol/L [facility] SO2 (felipe) arterial 100(H) 90 - 95 % [facility] Base excess, POC -0.9 mmol/L [facility] HCO3, Art POC 24 20 - 30 mmol/L [facility] Hct, POC 30.0(L) 41.4 - 51.6 % [facility] Total Hb, POC 10.0(L) 13.8 - 17.2 g/dL [facility] Blood 12/28/2024 11:4 4 AM CDT 12/28/2024 11:44 AM CDT Parth Dalton MD LAB POCT ORDERABLES - DEVICE Final Result Performing Organization Address City/[facility]/ZIP Co de Phone Number [facility] [place] [address] * (ABNORMAL) POCT heparin/ACT CPB (12/28/2024 11:25 AM CDT) Pathologist [facility] Heparin POC <2.8 units/mL ACT, CPB 599(H) 112 - 174 sec [facility] Blood 12/28/2024 11:2 5 AM CDT 12/28/2024 11:25 AM CDT Parth Dalton MD LAB POCT ORDERABLES - DEVICE Final Result Performing Organization Address [facility] [place] [address] * (ABNORMAL) POC Blood Gas and Chemistries, Arterial - (12/28/2024 11:18 AM CDT) pH, Art POC 7.41 7.35 - 7.45 pCO2, Art POC 38 35 - 45 mmHg [facility] pO2, Art POC 285(H) 83 - 108 mmHg [facility] Na, POC 142 135 - 145 mmol/L [facility] K POC 5.0(H) 3.3 - 4.9 mmol/L [facility] Comment: Interpretive Data Not all point of care methods assess for hemolysis. Confirm with instrument and retest K+ if not consistent with clinical signs and symptoms. Current Interpretive Data was last revised on 2023. Cl, POC 112(H) 97 - 110 mmol/L [facility] Ionized Ca, POC 4.31(L) 4.50 - 5.10 mg/dL [facility] Glucose, POC 117 70 - 199 mg/dL [facility] Lactate POC 1.0 0.7 - 2.0 mmol/L [facility] SO2 (felipe) arterial 100(H) 90 - 95 % [facility] Base excess, POC -0.4 mmol/L [facility] HCO3, Art POC 24 20 - 30 mmol/L [facility] Hct, POC 30.0(L) 41.4 - 51.6 % [facility] Total Hb, POC 9.9(L) 13.8 - 17.2 g/dL [facility] Blood 12/28/2024 11:1 8 AM CDT 12/28/2024 11:18 AM CDT Parth Dalton MD LAB POCT ORDERABLES - DEVICE Final Result Performing Organization Address [facility] Co de Phone Number [facility] Department [place] [address] * (ABNORMAL) POCT heparin/ACT CPB (12/28/2024 10:54 AM CDT) Pathologist [facility] Heparin POC <2.8 units/mL ACT, CPB 638(H) 112 - 174 sec [facility] Blood 12/28/2024 10:5 4 AM CDT 12/28/2024 10:54 AM CDT Parth Dalton MD LAB POCT ORDERABLES - DEVICE Final Result Performing Organization Address City/[facility] Co de Phone Number [facility] [place] [address] * (ABNORMAL) POC Blood Gas and Chemistries, Arterial - (12/28/2024 10:47 AM CDT) pH, Art POC 7.37 7.35 - 7.45 pCO2, Art POC 41 35 - 45 mmHg [facility] pO2, Art POC 397(H) 83 - 108 mmHg [facility] Na, POC 142 135 - 145 mmol/L [facility] K POC 4.9 3.3 - 4.9 mmol/L [facility] Comment: Interpretive Data Not all point of care methods assess for hemolysis. Confirm with instrument and retest K+ if not consistent with clinical signs and symptoms. Current Interpretive Data was last revised on 2023. Cl, POC 111(H) 97 - 110 mmol/L [facility] Ionized Ca, POC 4.47(L) 4.50 - 5.10 mg/dL [facility] Glucose, POC 108 70 - 199 mg/dL [facility] Lactate POC 1.0 0.7 - 2.0 mmol/L [facility] SO2 (felipe) arterial 100(H) 90 - 95 % [facility] Base excess, POC -1.5 mmol/L [facility] HCO3, Art POC 24 20 - 30 mmol/L [facility] Hct, POC 32.0(L) 41.4 - 51.6 % [facility] Total Hb, POC 10.5(L) 13.8 - 17.2 g/dL [facility] Blood 12/28/2024 10:4 7 AM CDT 12/28/2024 10:47 AM CDT Parth Dalton MD LAB POCT ORDERABLES - DEVICE Final Result Performing Organization Address City/[facility]/ZIP Co de Phone Number [facility] Department [place] [address] * (ABNORMAL) POCT heparin/ACT CPB (12/28/2024 10:27 AM CDT) Heparin POC >4.7 units/mL ACT, CPB 633(H) 112 - 174 sec [facility] Blood 12/28/2024 10:2 7 AM CDT 12/28/2024 10:27 AM CDT Parth Dalton MD LAB POCT ORDERABLES - DEVICE Final Result [facility] Department [place] [address] * (ABNORMAL) POC Blood Gas and Chemistries, Arterial - (12/28/2024 10:20 AM CDT) pH, Art POC 7.34(L) 7.35 - 7.45 pCO2, Art POC 45 35 - 45 mmHg [facility] pO2, Art POC 333(H) 83 - 108 mmHg [facility] Na, POC 140 135 - 145 mmol/L [facility] K POC 4.1 3.3 - 4.9 mmol/L [facility] Comment: Interpretive Data Not all point of care methods assess for hemolysis. Confirm with instrument and retest K+ if not consistent with clinical signs and symptoms. Current Interpretive Data was last revised on 2023. Ionized Ca, POC 4.34(L) 4.50 - 5.10 mg/dL [facility] Glucose, POC 103 70 - 199 mg/dL [facility] Lactate POC 0.8 0.7 - 2.0 mmol/L [facility] SO2 (felipe) arterial 100(H) 90 - 95 % [facility] Base excess, POC -1.6 mmol/L [facility] HCO3, Art POC 24 20 - 30 mmol/L [facility] Hct, POC 33.0(L) 41.4 - 51.6 % [facility] Total Hb, POC 10.9(L) 13.8 - 17.2 g/dL [facility] Blood 12/28/2024 10:2 0 AM CDT 12/28/2024 10:20 AM CDT us Parth Dalton MD LAB POCT ORDERABLES - DEVICE Final Result [facility] Department [place] [address] * (ABNORMAL) POCT heparin/ACT CPB (12/28/2024 10:02 AM CDT) Heparin POC >4.7 units/mL ACT, CPB 524(H) 112 - 174 sec [facility] Blood 12/28/2024 10:0 2 AM CDT 12/28/2024 10:02 AM CDT Parth Dalton MD LAB POCT ORDERABLES - DEVICE Final Result [facility] Department [place] [address] * (ABNORMAL) POC Blood Gas and Chemistries, Arterial - (12/28/2024 9:56 AM CDT) pH, Art POC 7.32(L) 7.35 - 7.45 pCO2, Art POC 50(H) 35 - 45 mmHg [facility] pO2, Art POC 178(H) 83 - 108 mmHg [facility] Na, POC 141 135 - 145 mmol/L [facility] K POC 4.2 3.3 - 4.9 mmol/L [facility] Comment: Interpretive Data Not all point of care methods assess for hemolysis. Confirm with instrument and retest K+ if not consistent with clinical signs and symptoms. Current Interpretive Data was last revised on 2023. Cl, POC 111(H) 97 - 110 mmol/L [facility] Ionized Ca, POC 4.93 4.50 - 5.10 mg/dL [facility] Glucose, POC 110 70 - 199 mg/dL [facility] Lactate POC 0.9 0.7 - 2.0 mmol/L [facility] SO2 (felipe) arterial 100(H) 90 - 95 % [facility] Base excess, POC -0.9 mmol/L [facility] HCO3, Art POC 26 20 - 30 mmol/L [facility] Hct, POC 37.0(L) 41.4 - 51.6 % [facility] Total Hb, POC 12.4(L) 13.8 - 17.2 g/dL [facility] Blood 12/28/2024 9:56 AM CDT 12/28/2024 9:56 AM CDT Parth Dalton MD LAB POCT ORDERABLES - DEVICE Final Result Performing Organization Address [facility] Co de Phone Number [facility] [place] [address] * POCT heparin dose response, CPB (12/28/2024 8:22 AM CDT) Baseline ACT POC 136 112 - 174 sec Heparin dose response slope POC 94 60 - 195 [facility] Projected Heparin Concentration POC <0.1 units/mL [facility] Blood 12/28/2024 8:22 AM CDT 12/28/2024 8:22 AM CDT Parth Dalton MD LAB POCT ORDERABLES - DEVICE Final Result Performing Organization Address [facility] Co de Phone Number [facility] [place] [address] * Central Venous Line (12/28/2024 8:17 AM CDT) Narrative Eve Nunez MD - 12/28/2024 8:17 AM CDT Eve Nunez MD 12/28/2024 8:17 AM Central Venous Line Patient location: OR Indication: central venous access and CVP monitoring Staff: Supervising provider: Simon Roberts MD Placed by: Resident: Eve Nunez MD Procedure prep: Patient position: Trendelenburg. PPE: provider hand hygiene, provider hat/mask, sterile gloves, sterile gown, full body drape, sterile gel and sterile probe covers. Prep solution: chlorhexadine/alcohol was applied to area. Ultrasound Evaluation: Ultrasound was prepped into field. Ultrasound image(s) saved to archive. Prior to the procedure, the cannulated vein was evaluated by ultrasound and deemed suitably patent for access.This vessel was accessed using real-time ultrasound guidance and an image was placed in the patient's medical record Central line: Laterality: right Site: internal jugular An individually distinct skin insertion site is being utilized for placement of the catheter. Catheter type: quad lumen Technique: anatomy identified with ultrasound, Seldinger technique, wire threaded easily and wire removed intact Venous verification: manometry and ultrasound confirmation Post insertion: all ports aspirated, all ports flushed easily, line sutured in place and occlusive dressing applied Number of attempts: 1 Assessment: Events: patient tolerated procedure well with no complications Simon Roberts MD ANESTHESIA ORDERABLES Fin al Result * Central Venous Line (12/28/2024 8:16 AM CDT) Narrative Eve Nunez MD - 12/28/2024 8:16 AM CDT Eve Nunez MD 12/28/2024 8:17 AM Central Venous Line Patient location: OR Indication: central venous access Staff: Supervising provider: Simon Roberts MD Placed by: Resident: Eve Nunez MD Procedure prep: Patient position: Trendelenburg. PPE: provider hand hygiene, provider hat/mask, sterile gloves, sterile gown, full body drape, sterile gel and sterile probe covers. Prep solution: chlorhexadine/alcohol was applied to area. Ultrasound Evaluation: Ultrasound was prepped into field. Ultrasound image(s) saved to archive. Prior to the procedure, the cannulated vein was evaluated by ultrasound and deemed suitably patent for access.This vessel was accessed using real-time ultrasound guidance and an image was placed in the patient's medical record Central line: Laterality: right Site: internal jugular An individually distinct skin insertion site is being utilized for placement of the catheter. Catheter type: introducer sheath Catheter size: 9 Fr. Technique: anatomy identified with ultrasound, Seldinger technique, wire threaded easily and wire removed intact Venous verification: manometry and ultrasound confirmation Post insertion: all ports aspirated, all ports flushed easily, line sutured in place and occlusive dressing applied Number of attempts: 1 PA catheter placement: PA catheter type: oximetric PA catheter laterality: right PA catheter site: internal jugular Placement guided by: pressure tracing changes Assessment: Events: patient tolerated procedure well with no complications Simon Roberts MD ANESTHESIA ORDERABLES Fin al Result * Arterial Line (12/28/2024 8:15 AM CDT) Narrative Eve Nunez MD - 12/28/2024 8:15 AM CDT Eve Nunez MD 12/28/2024 8:16 AM Arterial Line Patient location: OR Indication: continuous blood pressure monitoring and blood sampling needed Staff: Supervising provider: Simon Roberts MD Placed by: Resident: Eve Nunez MD Procedure prep: Prep solution: chlorhexadine/alcohol Prep: provider hat/mask, sterile gloves and sterile drape Skin infiltrated with lidocaine 1%: yes Arterial line: Catheter size: 20 gauge Catheter length: 1 and 3/4 inch Catheter type: wire-guided catheter Seldinger technique: yes Laterality: right Site: radial artery Line secured: tape and Tegaderm Results: good waveform and good blood return Number of attempts: 1 Assessment: Events: patient tolerated procedure well with no complications Simon Roberts MD ANESTHESIA ORDERABLES Fin al Result * Airway (12/28/2024 8:15 AM CDT) Narrative Eve Nunez MD - 12/28/2024 8:15 AM CDT Eve Nunez MD 12/28/2024 8:15 AM Airway Patient location: OR Urgency: elective Indications for airway management: anesthesia Difficult airway: no Staff: Placed by: Resident: Eve Nunez MD Emergent airway documentation: Risks and benefits discussed: yes Consent obtained: yes Airway prep: Preoxygenated: yes Patient position: sniffing Mask difficulty assessment: 0 - not attempted Spontaneous ventilation during airway: absent Sedation level during airway: GA Final airway details: Final airway type: endotracheal airway Tube type: reinforced tube ETT size: 7.5 mm Cuffed: yes Technique used for successful ETT placement: blind Insertion site: tracheostomy Cuff volume: 7 mL Cuff inflated with: air ETT to stoma: 15 cm Placement verified by: auscultation and CO2 detection Airway secured with: silk tape Number of attempts: 1 Simon Roberts MD ANESTHESIA ORDERABLES Fin al Result * (ABNORMAL) POC Blood Gas and Chemistries, Arterial - (12/28/2024 8:15 AM CDT) pH, Art POC 7.39 7.35 - 7.45 pCO2, Art POC 41 35 - 45 mmHg [facility] pO2, Art POC 125(H) 83 - 108 mmHg [facility] Na, POC 142 135 - 145 mmol/L [facility] K POC 3.8 3.3 - 4.9 mmol/L [facility] Comment: Interpretive Data Not all point of care methods assess for hemolysis. Confirm with instrument and retest K+ if not consistent with clinical signs and symptoms. Current Interpretive Data was last revised on 2023. Cl, POC 109 97 - 110 mmol/L [facility] Ionized Ca, POC 4.98 4.50 - 5.10 mg/dL [facility] Glucose, POC 102 70 - 199 mg/dL [facility] Lactate POC 1.0 0.7 - 2.0 mmol/L [facility] SO2 (felipe) arterial 100(H) 90 - 95 % [facility] Base excess, POC -0.2 mmol/L [facility] HCO3, Art POC 25 20 - 30 mmol/L [facility] Hct, POC 36.0(L) 41.4 - 51.6 % [facility] Total Hb, POC 12.0(L) 13.8 - 17.2 g/dL [facility] Blood 12/28/2024 8:15 AM CDT 12/28/2024 8:15 AM CDT us Parth Dalton MD LAB POCT ORDERABLES - DEVICE Final Result [facility] Department [place] [address] * YONY Add-On For OR (12/28/2024 7:51 AM CDT) BSA 2.09 m2 [facility] Narrative [facility] - 12/28/2024 7:51 AM CDT Procedure Auto Finalized by Rule: RAFY CV YONY DURING CASE OR Please see the Anesthesiologist's Procedure Note for the results. us Simon Roberts MD CV ECHO PROCEDURES Final Result [facility] * OR AN PROCEDURE PLACEHOLDER (12/28/2024 7:30 AM CDT) Anatomical Region Laterality Modality Other Narrative 12/28/2024 7:30 AM CDT Simon Roberts MD 12/31/2024 8:54 PM YONY Date/time: Staff: Supervising anesthesiologist: Naif Jalloh MD Performed by: Anesthesiologist: Simon Roberts MD Preprocedure checklist: patient identified, procedure contraindications assessed, procedure consent, risks, benefits and alternatives discussed, monitors and equipment checked, timeout performed and YONY probe inserted into esophagus using lubricating jelly General procedure Information: Reason for procedure/indications: assessment of surgical repair and hemodynamic monitoring Performed: with residents Procedure performed at surgeon's request: yes Results discussed with surgeon: yes Images submitted to archive: yes Patient location: OR Intubated: yes Bite blocked placed: yes Probe Insertion: easy Complications: no Probe type: adult Modalities: 2D imaging, 3D imaging, continuous wave Doppler, pulsed wave Doppler and color Doppler Billing information: Physician requesting echo: Parth Dalton MD CPT code: YONY placement and diagnostic exam, non-congenital (74511) Echocardiographic and doppler measurements: Ventricles: Left ventricle: Cavity size: moderately dilated Hypertrophy: No Thrombus: No Global function: severely decreased LVEF%: 20-30 Right ventricle: Cavity size: mildly dilated Hypertrophy: no Thrombus: No Global function: mildly decreased Interventricular septum: normal Regional function: 1- Basal anteroseptal: hypokinetic 2- Basal anterior: hypokinetic 3- Basal anterolateral: hypokinetic 4- Basal inferolateral: hypokinetic 5- Basal inferior: hypokinetic 6- Basal inferoseptal: hypokinetic 7- Mid anteroseptal: hypokinetic 8- Mid anterior: hypokinetic 9- Mid anterolateral: hypokinetic 10- Mid inferolateral: hypokinetic 11- Mid inferior: hypokinetic 12- Mid inferoseptal: hypokinetic 13- Apical anterior: hypokinetic 14- Apical lateral: hypokinetic 15- Apical inferior: hypokinetic 16- Apical septal: hypokinetic 17- Central: hypokinetic Valves: Aortic Valve: Annulus: normal Leaflet morphology: normal Leaflet motion: normal Stenosis: none Regurgitation: mild and moderate Mitral valve: Annulus: normal Leaflet morphology anterior: normal Leaflet morphology posterior: normal Leaflet motion anterior: normal Leaflet motion posterior: normal Stenosis: none Regurgitation: moderate Tricuspid valve: Annulus: normal Regurgitation: none Pulmonic valve: Annulus: normal Regurgitation: absent Aorta: Ascending aorta: Size: normal Dissection: no Plaque thickness(mm): 0-3 Aortic arch: Size: normal Dissection: no Plaque thickness(mm): 0-3 Descending aorta: Size: normal Dissection: no Plaque thickness(mm): 0-3 Atria: Right atrium: Size: dilated Spontaneous echo contrast: No Thrombus: no Mass: No Left atrium: Size: normal (normal) Spontaneous echo contrast: No Thrombus: no Mass: No Left atrial appendage: normal Interatrial septum: normal Diastolic function and other findings: Diastolic function: normal Pericardium: normal Left pleural effusion: none Right pleural effusion: normal Pulmonary venous flow: normal Pre-procedure YONY exam summary: Patient presents to OR for CABG. Exam performed under general anesthesia Dilated LV size and reduced systolic function; EF 30%. Dilated RV size and mildly reducedfunction. The aortic valve is trileaflet and without stenosis, mild to moderate AI No atherosclerosis throughout the thoracic aorta, and there is no aortic dissection. [place] images reviewed with surgeon in realtime. Postprocedure (follow-up) YONY exam: LV: mildly decreased systolic function RV: mildly decreased systolic function Aortic valve: mild AR and moderate AR Mitral valve: mild MR Atria: unchanged Aorta: unchanged Pericardium: unchanged Left pleural: unchanged Right pleural: unchanged Postprocedure (follow-up) YONY exam comments: S/p CABG on dobutamine 5 mcg/kg/min. Improved biventricular function on above support. LVEF 40%, LV mildly dilated, RV function normal, mildly dilated No aortic dissection. [place] images reviewed with surgeon in realtime. Attestation Statement: By signing this report the attending anesthesiologist certifies that he or she has personally reviewed and interpreted the echocardiogram and has reviewed and or edited and agrees with the written comments contained within the report. Simon Roberts MD ANESTHESIA ORDERABLES Fin al Result * Potassium, whole blood (12/27/2024 9:28 PM CDT) Potassium, bld 4.0 3.3 - 4.9 mmol/L Blood 12/27/2024 9:28 PM CDT 12/27/2024 9:37 PM CDT Francy Bernabe FIELD CONSULTANT LAB BLOOD ORDERABLES Final Result Performing Organization Address [facility] Co de Phone Number CYNTHIA MURPHY [facility] [place] [address] * (ABNORMAL) eGFR (12/27/2024 9:28 PM CDT) eGFR 59(L) >=60 mL/min/1. 73 m2 Comment: Interpretive Data Reference Interval Normal >/= 90 mL/min/1.73m2 Mildly decreased* 60 - 89 mL/min/1.73m2 Mildly to moderately decreased 45 - 59 mL/min/1.73m2 Moderately to severely decreased 30 - 44 mL/min/1.73m2 Severely decreased 15 - 29 mL/min/1.73m2 Kidney Failure < 15 mL/min/1.73m2 *Relative to young adult level Estimated glomerular filtration rate is determined by the 2020 CKD-EPI equation recommended by the National Kidney Foundation (A Unifying Approach to GFR Estimation: Recommendations of the NKF-ASK Task Force on Reassessing the Inclusion of Race in Diagnosing Kidney Disease, JASN 2020). The CKD-EPI equation should not be used for patients with unstable renal function and has not been validated in children and those over 70. Current interpretive data was last reviewed 2021. Blood 12/27/2024 9:28 PM CDT 12/27/2024 9:46 PM CDT Francy Bernabe FIELD CONSULTANT LAB BLOOD ORDERABLES Final Result Performing Organization Address City/[facility]/ZIP Co de Phone Number CYNTHIA MURPHY [facility] [place] [address] * (ABNORMAL) aPTT (12/27/2024 9:28 PM CDT) aPTT 100(H) 26 - 38 sec Comment: Interpretive Data Heparin therapeutic range: 66.0 - 100.0 seconds. Range based on correlation with therapeutic heparin activity range of 0.3 - 0.7 Units/mL. Current interpretive data was last revised on 2023. Blood 12/27/2024 9:28 PM CDT 12/27/2024 9:41 PM CDT Narrative CYNTHIA [facility] - 12/27/2024 10:03 PM CDT STAT PTT timing: - Draw 6 hours after heparin infusion initiation - Draw 6 hours after every dose change until 2 consecutive PTTs are therapeutic - Once 2 consecutive PTTs are therapeutic, obtain with daily labs until infusion is discontinued - - Restart every 6 hour lab draws and follow instructions accordingly if PTT is outside of therapeutic range Do not draw lab from IV line that is actively infusing heparin. Use the opposite arm. If arm with actively infusing heparin must be used, pause the infusion for at least 2 minutes, and draw specimen below the IV site. For patients with a central venous catheter (CVC), lab must be drawn peripherally (not from CVC). us Tesha Barrera FIELD CONSULTANT LAB BLOOD ORDERABLES Final Resul t Performing Organization Address [facility] Co de Phone Number [facility] Department [place] [address] * Antithrombin Activity (12/27/2024 9:28 PM CDT) [facility] Antithrombin III 84 80 - 125 % Comment: Interpretive Data High concentrations of anti-Xa direct oral anticoagulants can cause Antithrombin activities to be falsely elevated. Current interpretive data was last reviewed 2023 Blood 12/27/2024 9:28 PM CDT 12/27/2024 9:46 PM CDT Justin Lambert FIELD CONSULTANT LAB BLOOD ORDERABLES F inal Result Performing Organization Address City/[facility] Co de Phone Number [facility] [employer] [place], [place] [id number] * (ABNORMAL) CBC without differential (12/27/2024 9:28 PM CDT) Pathologist [facility] WBC 6.15 3.80 - 9.90 K/cumm Hgb 12.6(L) 13.0 - 17.5 g/dL [facility] Hct 37.9(L) 38.9 - 50.3 % [facility] Plt 151 150 - 400 K/cumm [facility] MPV 10.4 9.1 - 12.3 fL [facility] RBC 3.69(L) 4.30 - 5.80 M/cumm [facility] MCV 102.7(H) 81.3 - 96.4 fL [facility] MCH 34.1(H) 27.1 - 33.3 pg [facility] MCHC 33.2 32.3 - 35.7 g/dL [facility] RDW CV 14.0 11.1 - 14.9 % [facility] RDW SD 53.0(H) 35.7 - 48.1 fL [facility] NRBC abs 0.00 0.00 - 0.01 K/cumm [facility] Blood 12/27/2024 9:28 PM CDT 12/27/2024 9:46 PM CDT Francy Bernabe FIELD CONSULTANT LAB BLOOD ORDERABLES Final Result Performing Organization Address [facility] Co de Phone Number [facility] [place] [place] [address] * Magnesium (12/27/2024 9:28 PM CDT) [facility] Magnesium 1.9 1.4 - 2.5 mg/dL Blood 12/27/2024 9:28 PM CDT 12/27/2024 9:46 PM CDT Francy Bernabe FIELD CONSULTANT LAB BLOOD ORDERABLES Final Result Performing Organization Address [facility] Co de Phone Number [facility] [place] [address] * Basic metabolic panel (12/27/2024 9:28 PM CDT) Sodium 142 135 - 145 mmol/L Potassium, pl 4.3 3.3 - 4.9 mmol/L [facility] Chloride 106 97 - 110 mmol/L [facility] CO2 25 22 - 32 mmol/L [facility] Anion gap 11 2 - 15 mmol/L [facility] BUN 24 6 - 25 mg/dL [facility] Creatinine 1.28 0.80 - 1.30 mg/dL [facility] Glucose 136 70 - 199 mg/dL [facility] Comment: Interpretive Data Fasting glucose >/= 126 mg/dl is diagnostic for diabetes. Fasting is defined as no caloric intake for at least 8 hours. Fasting glucose between 100 mg/dl to 125 mg/dl is diagnostic of prediabetes. In a patient with classic symptoms of hyperglycemia or hyperglycemic crisis, a random glucose >/= 200 mg/dl is diagnostic for diabetes. In the absence of unequivocal hyperglycemia, results should be confirmed by repeat testing. The classification and Diagnosis of Diabetes Diabetes Care 2021; 46: S19-S40. Current interpretive data was last revised 2022. Calcium 9.3 8.5 - 10.3 mg/dL [facility] Blood 12/27/2024 9:28 PM CDT 12/27/2024 9:46 PM CDT us Francy Bernabe NP LAB BLOOD ORDERABLES Final Result [facility] Department [place] [address] * Prepare RBC: 4 Units (12/27/2024 3:41 PM CDT) Product code [id number] [facility] Unit Number [id number] 7-L [facility] Product Blood Type APOS [facility] Dispense Status RETURNED [facility] Product code [id number] [facility] Unit Number [id number] 1-M [facility] Product Blood Type APOS [facility] Dispense Status RETURNED [facility] Product code [id number] [facility] Unit Number [id number] 4-C [facility] Product Blood Type APOS [facility] Dispense Status RETURNED CYNTHIA MURPHY Product code [id number] Unit Number [id number] 9-A [facility] Product Blood Type APOS [facility] Dispense Status RETURNED [facility] Blood 12/27/2024 3:41 PM CDT 12/27/2024 3:40 PM CDT Narrative CYNTHIA MURPHY - 12/28/2024 3:05 PM CDT Specify Procedure:->CABG Are special requirements needed? (All products are leukoreduced and CMV- safe)- >No Date required:-[id number] LRRBC # of [id number] Reasons:-Hold for procedure (specify procedure)} us Lacey Ly NP BLOOD BANK PRODUCT ORDERAB LES Final Result [facility] Department [place] [address] * XR Chest Pa Lateral 2 Views (12/27/2024 3:06 PM CDT) Anatomical Region Laterality Modality Body, Chest N/A Computed Radiogr aphy 12/27/2024 3:15 PM CDT Impressions 12/27/2024 3:15 PM CDT Comparison 05/01/2024. Tracheostomy tube remains in place. Cardiomediastinal silhouette stable with tortuous thoracic aorta. Minimal right basilar atelectasis or scarring again noted. Lungs otherwise clear without focal consolidation or pulmonary edema. No pneumothorax or pleural effusion seen. Old healed left lateral rib fractures again seen. Electronically signed by: Jan Myers M.D. Narrative 12/27/2024 3:15 PM CDT EXAMINATION: 2 view chest radiograph Procedure Note Jan yMers MD - 12/27/2024 EXAMINATION: 2 view chest radiograph IMPRESSION: Comparison 05/01/2024. Tracheostomy tube remains in place. Cardiomediastinal silhouette stable with tortuous thoracic aorta. Minimal right basilar atelectasis or scarring again noted. Lungs otherwise clear without focal consolidation or pulmonary edema. No pneumothorax or pleural effusion seen. Old healed left lateral rib fractures again seen. Electronically signed by: Jan Myers M.D. Justin Lambert FIELD CONSULTANT IMG XR PROCEDURES Raquel l Result * US Carotids Duplex Bilateral (12/27/2024 10:03 AM CDT) Anatomical Region Laterality Modality Vascular Bilateral Ultrasound 12/27/2024 9:03 AM CDT Narrative 12/27/2024 1:25 PM CDT [facility] - Department of Vascular Surgery, Vascular Laboratory [address] [place] [address] Carotid Duplex Ultrasound Report Patient Name: MEGAN TITUS : 1950 (74y 10m) Study Date: 12/27/2024 9:03:35 AM Gender: M Tech: Location: [id number] Ref Provider: JUSTIN LAMBERT Quality: Adequate Order Provider: JUSTIN LAMBERT PROCEDURES: Carotid Report: Carotid duplex examination of the extracranial arteries was performed using 2D, color and spectral Doppler. INDICATIONS: pre-op exam - MEASUREMENTS: Right Value Units Left Value Units RT Prox CCA PSV 60 cm/sec LT Prox CCA PSV 76 cm/sec RT Prox CCA EDV 23 cm/sec LT Prox CCA EDV 21 cm/sec RT Distal CCA PSV 44 cm/sec LT Distal CCA PSV 47 cm/sec RT Distal CCA EDV 18 cm/sec LT Distal CCA EDV 21 cm/sec RT Prox ICA PSV 33 cm/sec LT Prox ICA PSV 31 cm/sec RT Prox ICA EDV 17 cm/sec LT Prox ICA EDV 12 cm/sec RT Mid ICA PSV 47 cm/sec LT Mid ICA PSV 40 cm/sec RT Mid ICA EDV 21 cm/sec LT Mid ICA EDV 23 cm/sec RT Distal ICA PSV 64 cm/sec LT Distal ICA PSV 44 cm/sec RT Distal ICA EDV 38 cm/sec LT Distal ICA EDV 21 cm/sec RT ECA Prx PSV 46 cm/sec LT ECA Prx PSV 38 cm/sec RT ICA/CCA 1.45 ratio LT ICA/CCA 0.95 ratio RT VERT PSV 32 cm/sec LT VERT PSV 29 cm/sec FINDINGS: Performing Orchestra Musician: Martine Canas RVT. Rt Common Carotid Artery: The plaque in the right CCA appears to be heterogeneous and irregular. Atherosclerotic changes of the right common carotid artery with no hemodynamically significant Doppler findings. Rt Internal Carotid Artery: The plaque in the right internal carotid artery appears to be heterogeneous and irregular. Atherosclerotic changes of the right internal carotid artery without hemodynamically significant Doppler findings. <50% stenosis. Rt External Carotid Artery: Patent right external carotid artery with evidence of atherosclerotic disease present. Rt Vertebral Artery: The right vertebral artery is patent with antegrade flow. Lt Common Carotid Artery: The plaque in the left CCA appears to be heterogeneous, calcified and irregular. Atherosclerotic changes of the left common carotid artery with no hemodynamically significant Doppler findings. Lt Internal Carotid Artery: The plaque in the left internal carotid artery appears to be heterogeneous, calcified and irregular. Atherosclerotic changes of the left internal carotid artery without hemodynamically significant Doppler findings. <50% stenosis. Lt External Carotid Artery: The left external carotid artery is patent without evidence of atherosclerotic plaque. Lt Vertebral Artery: The left vertebral artery is patent with antegrade flow. CONCLUSIONS: 1. No evidence of hemodynamically significant stenosis in the common carotid artery bilaterally. 2. The right internal carotid artery disease is consistent with a less than 50% stenosis. 3. The left internal carotid artery disease is consistent with a less than 50% stenosis. 4. Patent right external carotid artery with evidence of atherosclerotic plaque. 5. Patent left external carotid artery without evidence of atherosclerotic plaque. 6. Normal, antegrade flow is noted in bilateral vertebral arteries. HISTORY: HTN, HFrEF, A-fib, DM, CKD, CAD. PREVIOUS STUDIES: No previous studies for comparison. DISCLAIMER: The study images and the final report will be retained in the patient chart by the Vascular Laboratory for the legally required time period. This chart constitutes the legal record of any testing performed. ATTESTATION: I have reviewed and interpreted the pertinent images and measurements of this study. I attest to the conclusions in the final report that is provided above. Electronically Signed By: Seth Sexton MD FACS 12/27/2024 12:34:30 PM CDT Procedure Note Seth Sexton MD - 12/27/2024 [facility] - Department of Vascular Surgery,Vascular Laboratory [address] [place] [address] Carotid Duplex Ultrasound Report Patient Name: MEGAN TITUS : 1950 (74y 10m) Study Date: 12/27/2024 9:03:35 AM Gender: M Tech: Location: [id number] Ref Provider: JUSTIN LAMBERT Quality: Adequate Order Provider: JUSTIN LAMBERT PROCEDURES: Carotid Report: Carotid duplex examination of the extracranial arterieswas performed using 2D, color and spectral Doppler. INDICATIONS: pre-op exam - MEASUREMENTS: Right Value Units Left Value Units RT Prox CCA PSV 60 cm/sec LT Prox CCA PSV 76 cm/sec RT Prox CCA EDV 23 cm/sec LT Prox CCA EDV 21 cm/sec RT Distal CCA PSV 44 cm/sec LT Distal CCA PSV 47 cm/sec RT Distal CCA EDV 18 cm/sec LT Distal CCA EDV 21 cm/sec RT Prox ICA PSV 33 cm/sec LT Prox ICA PSV 31 cm/sec RT Prox ICA EDV 17 cm/sec LT Prox ICA EDV 12 cm/sec RT Mid ICA PSV 47 cm/sec LT Mid ICA PSV 40 cm/sec RT Mid ICA EDV 21 cm/sec LT Mid ICA EDV 23 cm/sec RT Distal ICA PSV 64 cm/sec LT Distal ICA PSV 44 cm/sec RT Distal ICA EDV 38 cm/sec LT Distal ICA EDV 21 cm/sec RT ECA Prx PSV 46 cm/sec LT ECA Prx PSV 38 cm/sec RT ICA/CCA 1.45 ratio LT ICA/CCA 0.95 ratio RT VERT PSV 32 cm/sec LT VERT PSV 29 cm/sec FINDINGS: Performing Orchestra Musician: Martine Canas RVT. Rt Common Carotid Artery: The plaque in the right CCA appears to beheterogeneous and irregular. Atherosclerotic changes of the right common carotid artery withno hemodynamically significant Doppler findings. Rt Internal Carotid Artery: The plaque in the right internal carotidartery appears to be heterogeneous and irregular. Atherosclerotic changes of the right internalcarotid artery without hemodynamically significant Doppler findings. <50% stenosis. Rt External Carotid Artery: Patent right external carotid artery withevidence of atherosclerotic disease present. Rt Vertebral Artery: The right vertebral artery is patent with antegradeflow. Lt Common Carotid Artery: The plaque in the left CCA appears to beheterogeneous, calcified and irregular. Atherosclerotic changes of the left commoncarotid artery with no hemodynamically significant Doppler findings. Lt Internal Carotid Artery: The plaque in the left internal carotid arteryappears to be heterogeneous, calcified and irregular. Atherosclerotic changes of theleft internal carotid artery without hemodynamically significant Doppler findings. <50%stenosis. Lt External Carotid Artery: The left external carotid artery is patentwithout evidence of atherosclerotic plaque. Lt Vertebral Artery: The left vertebral artery is patent with antegradeflow. CONCLUSIONS: 1. No evidence of hemodynamically significant stenosis in the commoncarotid artery bilaterally. 2. The right internal carotid artery disease is consistent with a lessthan 50% stenosis. 3. The left internal carotid artery disease is consistent with a less than50% stenosis. 4. Patent right external carotid artery with evidence of atheroscleroticplaque. 5. Patent left external carotid artery without evidence of atheroscleroticplaque. 6. Normal, antegrade flow is noted in bilateral vertebral arteries. HISTORY: HTN, HFrEF, A-fib, DM, CKD, CAD. PREVIOUS STUDIES: No previous studies for comparison. DISCLAIMER: The study images and the final report will be retained in the patientchart by the Vascular Laboratory for the legally required time period. This chartconstitutes the legal record of any testing performed. ATTESTATION: I have reviewed and interpreted the pertinent images and measurements ofthis study. I attest to the conclusions in the final report that is provided above. Electronically Signed By: Seth Sexton MD FACS 12/27/2024 12:34:30 PM CDT Justin Lambert NP IMG US PROCEDURES Raquel l Result * US Vein Mapping Duplex Lower Extremity Bilateral (12/27/2024 10:02 AM CDT) Anatomical Region Laterality Modality Vascular Bilateral Ultrasound 12/27/2024 9:15 AM CDT Narrative 12/27/2024 1:35 PM CDT [facility] - Department of Vascular Surgery, Vascular Laboratory [address] [place] [id number] Lower Extremity Vein Mapping Report Patient Name: MEGAN TITUS : 1950 (74y 10m) Study Date: 12/27/2024 9:15:50 AM Gender: M Orchestra Musician: ALEIDA Location: [id number] Ref Provider: JUSTIN LAMBERT Quality: Adequate Order Provider: JUSTIN LAMBERT PROCEDURES: Mapping Report: Bilateral Lower Extremity Saphenous Vein Mapping. INDICATIONS: pre-op exam - MEASUREMENTS: Right Value Units Left Value Units Rt Sapheno-Femoral Junction 0.61 cm Lt Sapheno-Femoral Junction 0.35 cm Rt Great Saphenous Thigh - Proximal 0.44 cm Lt Great Saphenous Thigh - Proximal 0.28 cm Rt Great Saphenous Thigh - Mid 0.34 cm Lt Great Saphenous Thigh - Mid 0.25 cm Rt Great Saphenous Thigh - Distal 0.31 cm Lt Great Saphenous Thigh - Distal 0.29 cm Rt Great Saphenous Knee 0.30 cm Lt Great Saphenous Knee 0.29 cm Rt Great Saphenous Calf - Proximal 0.40 cm Lt Great Saphenous Calf - Proximal 0.33 cm Rt Great Saphenous Calf - Mid 0.32 cm Lt Great Saphenous Calf - Mid 0.30 cm Rt Great Saphenous Calf - Distal 0.30 cm Lt Great Saphenous Calf - Distal 0.30 cm Rt Small Saphenous Proximal 0.40 cm Lt Small Saphenous Proximal 0.30 cm Rt Small Saphenous Mid 0.24 cm Lt Small Saphenous Mid 0.15 cm Rt Small Saphenous Distal 0.26 cm Lt Small Saphenous Distal 0.20 cm FINDINGS: Performing Orchestra Musician: Martine Canas RVT. Bilateral: The common femoral, femoral, popliteal veins were evaluated with compression maneuvers. No evidence of deep vein thrombus by duplex, proximal to the calf. Noninvasive venous studies cannot rule out an isolated calf vein obstruction. Duplex imaging of bilateral great and small saphenous veins reveals the cross-sectional measurements noted above. No evidence of superficial vein thrombus. Comments: Incidental Finding: Non-vascularized structure with mixed echogenicities noted at the right popliteal fossa that is too complex to measure. CONCLUSIONS: 1. Duplex imaging of bilateral great and small saphenous veins reveals the cross-sectional measurements noted above. No evidence of deep or superficial vein thrombus bilaterally. HISTORY: HTN, HFrEF, A-fib, CAD, CKD, Hx of PE. PREVIOUS STUDIES: No previous studies for comparison. DISCLAIMER: The study images and the final report will be retained in the patient chart by the Vascular Laboratory for the legally required time period. This chart constitutes the legal record of any testing performed. ATTESTATION: I have reviewed and interpreted the pertinent images and measurements of this study. I attest to the conclusions in the final report that is provided above. Electronically Signed By: Seth Sexton MD FACS 12/27/2024 1:35:27 PM CDT Procedure Note Seth Sexton MD - 12/27/2024 [facility] - Department of Vascular Surgery,Vascular Laboratory [address] [place] [id number] Lower Extremity Vein Mapping Report Patient Name: MEGAN TITUS : 1950 (74y 10m) Study Date: 12/27/2024 9:15:50 AM Gender: M Orchestra Musician: ALEIDA Location: [id number] Ref Provider: JUSTIN LAMBERT Quality: Adequate Order Provider: JUSTIN LAMBERT PROCEDURES: Mapping Report: Bilateral Lower Extremity Saphenous Vein Mapping. INDICATIONS: pre-op exam - MEASUREMENTS: Right Value Units Left Value Units Rt Sapheno-Femoral Junction 0.61 cm Lt Sapheno-Femoral Junction 0.35 cm Rt Great Saphenous Thigh - Proximal 0.44 cm Lt Great Saphenous Thigh -Proximal 0.28 cm Rt Great Saphenous Thigh - Mid 0.34 cm Lt Great Saphenous Thigh - Mid 0.25cm Rt Great Saphenous Thigh - Distal 0.31 cm Lt Great Saphenous Thigh -Distal 0.29 cm Rt Great Saphenous Knee 0.30 cm Lt Great Saphenous Knee 0.29 cm Rt Great Saphenous Calf - Proximal 0.40 cm Lt Great Saphenous Calf -Proximal 0.33 cm Rt Great Saphenous Calf - Mid 0.32 cm Lt Great Saphenous Calf - Mid 0.30cm Rt Great Saphenous Calf - Distal 0.30 cm Lt Great Saphenous Calf - Distal0.30 cm Rt Small Saphenous Proximal 0.40 cm Lt Small Saphenous Proximal 0.30 cm Rt Small Saphenous Mid 0.24 cm Lt Small Saphenous Mid 0.15 cm Rt Small Saphenous Distal 0.26 cm Lt Small Saphenous Distal 0.20 cm FINDINGS: Performing Orchestra Musician: Martine Canas RVT. Bilateral: The common femoral, femoral, popliteal veins were evaluatedwith compression maneuvers. No evidence of deep vein thrombus by duplex, proximal to thecalf. Noninvasive venous studies cannot rule out an isolated calf vein obstruction. Dupleximaging of bilateral great and small saphenous veins reveals the cross- sectionalmeasurements noted above. No evidence of superficial vein thrombus. Comments: Incidental Finding: Non-vascularized structure with mixed echogenicities noted at the rightpopliteal fossa that is too complex to measure. CONCLUSIONS: 1. Duplex imaging of bilateral great and small saphenous veins reveals the cross-sectional measurements noted above. No evidence of deep orsuperficial vein thrombus bilaterally. HISTORY: HTN, HFrEF, A-fib, CAD, CKD, Hx of PE. PREVIOUS STUDIES: No previous studies for comparison. DISCLAIMER: The study images and the final report will be retained in the patientchart by the Vascular Laboratory for the legally required time period. This chartconstitutes the legal record of any testing performed. ATTESTATION: I have reviewed and interpreted the pertinent images and measurements ofthis study. I attest to the conclusions in the final report that is provided above. Electronically Signed By: Seth Sexton MD [facility] 12/27/2024 1:35:27 PM CDT us Justin Lambert FIELD CONSULTANT IMG US PROCEDURES Raquel l Result * TRANSTHORACIC ECHO (TTE) COMPLETE W DOPPLER/CF W CONTRAST (12/27/2024 8:47 AM CDT) EF Mod BP 38 % CONS SCIMAGE Anatomical Region Laterality Modality Ultrasound 12/27/2024 7:13 AM CDT Narrative 12/27/2024 10:50 AM CDT [facility] [place] [address] Transthoracic Echocardiographic Report Patient Name: MEGAN TITUS : 1950 (74y 10m) Sex: M Study Date: 12/27/2024 07:13:57 AM Ht(Inch): 70 Wt(Lb): 195.11 BSA: 2.09 Orchestra Musician: Santiago Montiel RDCS Location: [id number] Order Provider: JUSTIN LAMBERT Heart Rate: 95 BMI: 27.99 BP: 103 / 81 Ref Provider: EZIO,JUSTIN PROCEDURES: Echocardiographic Report: Transthoracic complete echo with strain imaging and contrast, 2D, spectral and tissue Doppler, color flow Doppler, M-mode. Contrast: Contrast Enhancement was Employed: After initial imaging due to sub- optimal quality related to co-morbidity defined by patient's body habitus. 1 ml Optison Administered, (2 ml wasted). INDICATIONS: Preoperative evaluation. CONCLUSIONS: 1. Normal left ventricular size based on volume index. Concentric LV hypertrophy. Moderately depressed left ventricular systolic function. The Ejection Fraction (Liao's) is measured at 38 %. Grade I diastolic dysfunction (normal LA pressure). The average global longitudinal strain is abnormal. 2. There is mild global hypokinesis. 3. Resting Segmental Wall Motion Analysis: Total wall motion score is 2.06. There is akinesis of the basal inferior wall. The remaining left ventricular segments demonstrate hypokinesis. 4. Mild right ventricular hypokinesis. 5. Severely dilated left atrium. 6. Right atrial dilatation. 7. Mitral valve leaflets appear mildly thickened. Mild mitral valve regurgitation. No stenosis present. 8. Trileaflet aortic valve. Mild aortic valve regurgitation. No aortic valve stenosis. The mean transaortic gradient is 2 mmHg. The aortic valve area by the continuity equation (using VTI) is 2.97 cm2. Aortic valve dimensionless index is 0.72. 9. Normal Tricuspid valve structure. Mild tricuspid regurgitation. 10. The Estimated PASP is : 38 mmHg. COMPARISONS: Compared with prior study 05/07/24, the following changes are now seen: LV volumes are increased, LVEF is slightly higher, and LVOT VTI and LV stroke volume have increased. ATTESTATION: I have personally reviewed and interpreted this study without fellow or resident. - DISCLAIMER: The study images and the final report will be retained in the patient chart by the Echo Laboratory for the legally required time period. This chart constitutes the legal record of any testing performed. FINDINGS: Left Ventricle: Normal left ventricular size based on volume index. Concentric LV hypertrophy. Moderately depressed left ventricular systolic function. The Ejection Fraction (Liao's) is measured at 38 %. Grade I diastolic dysfunction (normal LA pressure). The average global longitudinal strain is abnormal. The LV global strain is: -7.4 %. Resting Segmental Wall Motion Analysis: Total wall motion score is 2.06. There is akinesis of the basal inferior wall. The remaining left ventricular segments demonstrate hypokinesis. Regional Wall Motion: There is mild global hypokinesis. Right Ventricle: RV dilation Mild RV dilation. Mild right ventricular hypokinesis. Increased epicardial fat. Left Atrium: Severely dilated left atrium. Right Atrium: Right atrial dilatation. Atrial Septum: Normal interatrial septum. Mitral Valve: Mitral valve leaflets appear mildly thickened. Mild mitral valve regurgitation. No stenosis present. Aortic Valve: Trileaflet aortic valve. Mild aortic valve regurgitation. No aortic valve stenosis. The mean transaortic gradient is 2 mmHg. The aortic valve area by the continuity equation (using VTI) is 2.97 cm2. Aortic valve dimensionless index is 0.72. Tricuspid Valve: Normal Tricuspid valve structure. Mild tricuspid regurgitation. Pulmonic Valve: Normal Pulmonic Valve Structure. Mild pulmonic regurgitation. Pericardium: Normal pericardium without pericardial effusion. There is an anterior echo free space consistent with epicardial fat pad. Aorta: Mild aortic root dilation at sinuses of Valsalva. Normal aortic root size when indexed. The ascending aorta is normal in size when indexed. IVC: The IVC was <2.1 cm and collapsibility <50%. (est. RA pressure 6-10 mmHg). PASP: The Estimated PASP is : 38 mmHg. Pulmonary Artery: Pulmonary artery is not well visualized due to poor acoustic windows. Rhythm: The rhythm during the study was atrial fibrillation. MEASUREMENTS: 2D/MM Value Range Doppler Value Range LVIDd 2D 4.73 cm [ 4.20 - 5.80 ] AV Peak Alexandro 1.0 m/s [ 1.0 - 1.7 ] LVIDs 2D 3.97 cm [ 2.50 - 4.00 ] AV Peak PG 4.00 mmHg IVSd 2D 1.48 cm [ 0.60 - 1.00 ] AV Mean PG 2 mmHg LVPWd 2D 1.37 cm [ 0.60 - 1.00 ] AV VTI 20.4 cm LV Thickness Ratio 1.1 LVOT Peak Alexandro 0.8 m/s [ 0.7 - 1.1 ] LV FS 2D 15.97 % [ 25.00 - 43.00 ] LVOT Peak PG 2.56 mmHg LV Mass 2D 278.29 g LVOT Mean PG 2 mmHg LV Mass Index 2D 133.11 g/m2 LVOT VTI 14.6 cm RWT 0.58 LVOT Diam 2.30 cm EDV Mod BP 150.10 ml [ 62.00 - 150.00 ] JOEL VTI 2.97 cm2 LV EDV Index 71.79 ml/m2 LVOT/AV VTI 0.72 - Dimensionless index (DVI) ESV Mod BP 92.80 ml [ 21.00 - 61.00 ] AI Peak Alexandro 4.8 m/s EF Mod BP 38 % [ 52 - 72 ] AI Peak PG 90 mmHg LV GLS -7.4 % [ -25.0 - -18.0 ] AI Decel Time 1997.54 sec LA Length 4C 7.12 cm AI Decel Chase 2.38 m/s2 LA Length 2C 7.04 cm AI PHT 579.29 msec LA Volume BP 112.17 ml MV E Peak Alexandro 0.9 m/s [ 0.6 - 1.3 ] LA Volume Index 53.65 ml/m2 [ 16.00 - 34.00 ] MV Decel Time 121.92 msec [ 104.00 - 258.00 ] RV Base Dimen 2D 4.3 cm [ 2.5 - 4.2 ] Med E` Alexandro 8.8 cm/sec [ 8.0 - 25.0 ] TAPSE 1.85 cm [ 1.71 - 5.00 ] Lat E` Alexandro 11.9 cm/sec [ 10.0 - 25.0 ] RA Volume 71.85 ml Average E/E` 8.70 RA Volume Index 34.37 ml/m2 MR Peak Alexandro 4.9 m/s AoR Diam 2D 3.87 cm [ 3.10 - 3.70 ] MR Peak PG 96.04 mmHg Ao Root Index 1.85 cm/m2 [ 1.00 - 2.00 ] MV Alias Alexandro 0.307 m/s Asc Ao Diam 2D 3.53 cm MR VTI 171.7 cm Asc Ao Index 1.69 cm/m2 MR Flow 0.48 ml/sec MR PISA 0.5 MR EROA 0.1 cm2 PISA Regurgitant Volume 17.2 ml RV S` 11.37 cm/sec TR Peak Alexandro 2.7 m/s [ 1.0 - 2.8 ] TR Peak PG 29.2 mmHg PI Peak Alexandro 2.7 m/s PI ED Alexandro 170.73 m/sec PI Peak PG 28 mmHg PI PHT 448.27 sec Electronically Signed By: Gerardo Dickson MD 12/27/2024 10:50:10 AM CDT Procedure Note Gerardo Dickson MD - 12/27/2024 [facility] [place] [address] Transthoracic Echocardiographic Report Patient Name: MEGAN TITUS : 1950 (74y 10m) Sex: M Study Date: 12/27/2024 07:13:57 AM Ht(Inch): 70 Wt(Lb): 195.11 BSA: 2.09 Orchestra Musician: Santiago Montiel RDCS Location: [id number] Order Provider:JUSTIN LAMBERT Heart Rate: 95 BMI: 27.99 BP: 103 / 81 Ref Provider: JUSTIN LAMBERT PROCEDURES: Echocardiographic Report: Transthoracic complete echo with strain imagingand contrast, 2D, spectral and tissue Doppler, color flow Doppler, M-mode. Contrast: Contrast Enhancement was Employed: After initial imaging due tosub- optimal quality related to co-morbidity defined by patient's body habitus. 1 mlOptison Administered, (2 ml wasted). INDICATIONS: Preoperative evaluation. CONCLUSIONS: 1. Normal left ventricular size based on volume index. Concentric LVhypertrophy. Moderately depressed left ventricular systolic function. The EjectionFraction (Liao's) is measured at 38 %. Grade I diastolic dysfunction (normal LApressure). The average global longitudinal strain is abnormal. 2. There is mild global hypokinesis. 3. Resting Segmental Wall Motion Analysis: Total wall motion score is2.06. There is akinesis of the basal inferior wall. The remaining left ventricularsegments demonstrate hypokinesis. 4. Mild right ventricular hypokinesis. 5. Severely dilated left atrium. 6. Right atrial dilatation. 7. Mitral valve leaflets appear mildly thickened. Mild mitral valveregurgitation. No stenosis present. 8. Trileaflet aortic valve. Mild aortic valve regurgitation. No aorticvalve stenosis. The mean transaortic gradient is 2 mmHg. The aortic valve area by thecontinuity equation (using VTI) is 2.97 cm2. Aortic valve dimensionless index is 0.72. 9. Normal Tricuspid valve structure. Mild tricuspid regurgitation. 10. The Estimated PASP is : 38 mmHg. COMPARISONS: Compared with prior study 05/07/24, the following changes are now seen: LVvolumes are increased, LVEF is slightly higher, and LVOT VTI and LV stroke volume haveincreased. ATTESTATION: I have personally reviewed and interpreted this study without fellow orresident. - DISCLAIMER: The study images and the final report will be retained in the patientchart by the Echo Laboratory for the legally required time period. This chart constitutesthe legal record of any testing performed. FINDINGS: Left Ventricle: Normal left ventricular size based on volume index.Concentric LV hypertrophy. Moderately depressed left ventricular systolic function. TheEjection Fraction (Liao's) is measured at 38 %. Grade I diastolic dysfunction(normal LA pressure). The average global longitudinal strain is abnormal. The LVglobal strain is: -7.4 %. Resting Segmental Wall Motion Analysis: Total wall motion score is 2.06.There is akinesis of the basal inferior wall. The remaining left ventricularsegments demonstrate hypokinesis. Regional Wall Motion: There is mild global hypokinesis. Right Ventricle: RV dilation Mild RV dilation. Mild right ventricularhypokinesis. Increased epicardial fat. Left Atrium: Severely dilated left atrium. Right Atrium: Right atrial dilatation. Atrial Septum: Normal interatrial septum. Mitral Valve: Mitral valve leaflets appear mildly thickened. Mild mitralvalve regurgitation. No stenosis present. Aortic Valve: Trileaflet aortic valve. Mild aortic valve regurgitation. Noaortic valve stenosis. The mean transaortic gradient is 2 mmHg. The aortic valve areaby the continuity equation (using VTI) is 2.97 cm2. Aortic valve dimensionlessindex is 0.72. Tricuspid Valve: Normal Tricuspid valve structure. Mild tricuspidregurgitation. Pulmonic Valve: Normal Pulmonic Valve Structure. Mild pulmonicregurgitation. Pericardium: Normal pericardium without pericardial effusion. There is ananterior echo free space consistent with epicardial fat pad. Aorta: Mild aortic root dilation at sinuses of Valsalva. Normal aorticroot size when indexed. The ascending aorta is normal in size when indexed. IVC: The IVC was <2.1 cm and collapsibility <50%. (est. RA pressure 6-10mmHg). PASP: The Estimated PASP is : 38 mmHg. Pulmonary Artery: Pulmonary artery is not well visualized due to pooracoustic windows. Rhythm: The rhythm during the study was atrial fibrillation. MEASUREMENTS: 2D/MM Value Range DopplerValue Range LVIDd 2D 4.73 cm [ 4.20 - 5.80 ] AV Peak Vel1.0 m/s [ 1.0 - 1.7 ] LVIDs 2D 3.97 cm [ 2.50 - 4.00 ] AV Peak PG4.00 mmHg IVSd 2D 1.48 cm [ 0.60 - 1.00 ] AV Mean PG2 mmHg LVPWd 2D 1.37 cm [ 0.60 - 1.00 ] AV VTI20.4 cm LV Thickness Ratio 1.1 LVOT Peak Vel0.8 m/s [ 0.7 - 1.1 ] LV FS 2D 15.97 % [ 25.00 - 43.00 ] LVOT Peak PG2.56 mmHg LV Mass 2D 278.29 g LVOT Mean PG2 mmHg LV Mass Index 2D 133.11 g/m2 LVOT VTI14.6 cm RWT 0.58 LVOT Diam2.30 cm EDV Mod BP 150.10 ml [ 62.00 - 150.00 ] JOEL VTI2.97 cm2 LV EDV Index 71.79 ml/m2 LVOT/AV VTI0.72 - Dimensionless index (DVI) ESV Mod BP 92.80 ml [ 21.00 - 61.00 ] AI Peak Vel4.8 m/s EF Mod BP 38 % [ 52 - 72 ] AI Peak PG90 mmHg LV GLS -7.4 % [ -25.0 - -18.0 ] AI Decel Uvio9545.54 sec LA Length 4C 7.12 cm AI Decel Slope2.38 m/s2 LA Length 2C 7.04 cm AI NMT379.29 msec LA Volume BP 112.17 ml MV E Peak Vel0.9 m/s [ 0.6 - 1.3 ] LA Volume Index 53.65 ml/m2 [ 16.00 - 34.00 ] MV Decel Ukju487.92 msec [ 104.00 - 258.00 ] RV Base Dimen 2D 4.3 cm [ 2.5 - 4.2 ] Med E` Vel8.8 cm/sec [ 8.0 - 25.0 ] TAPSE 1.85 cm [ 1.71 - 5.00 ] Lat E` Vel11.9 cm/sec [ 10.0 - 25.0 ] RA Volume 71.85 ml Average E/E`8.70 RA Volume Index 34.37 ml/m2 MR Peak Vel4.9 m/s AoR Diam 2D 3.87 cm [ 3.10 - 3.70 ] MR Peak PG96.04 mmHg Ao Root Index 1.85 cm/m2 [ 1.00 - 2.00 ] MV Alias Vel0.307 m/s Asc Ao Diam 2D 3.53 cm MR GFG015.7 cm Asc Ao Index 1.69 cm/m2 MR Flow0.48 ml/sec MR PISA 0.5 MR EROA 0.1 cm2 PISA Regurgitant Volume 17.2 ml RV S` 11.37 cm/sec TR Peak Alexandro 2.7 m/s [ 1.0 - 2.8 ] TR Peak PG 29.2 mmHg PI Peak Alexandro 2.7 m/s PI ED Alexandro 170.73 m/sec PI Peak PG 28 mmHg PI PHT 448.27 sec Electronically Signed By: Gerardo Dickson MD 12/27/2024 10:50:10 AM CDT Justin Lambert NP CV ECHO PROCEDURES Fin al Result * (ABNORMAL) aPTT (12/27/2024 6:21 AM CDT) aPTT 98(H) 26 - 38 sec Comment: Interpretive Data Heparin therapeutic range: 66.0 - 100.0 seconds. Range based on correlation with therapeutic heparin activity range of 0.3 - 0.7 Units/mL. Current interpretive data was last revised on 2023. Blood 12/27/2024 6:21 AM CDT 12/27/2024 6:29 AM CDT Narrative [facility] - 12/27/2024 6:54 AM CDT STAT PTT timing: - Draw 6 hours after heparin infusion initiation - Draw 6 hours after every dose change until 2 consecutive PTTs are therapeutic - Once 2 consecutive PTTs are therapeutic, obtain with daily labs until infusion is discontinued - - Restart every 6 hour lab draws and follow instructions accordingly if PTT is outside of therapeutic range Do not draw lab from IV line that is actively infusing heparin. Use the opposite arm. If arm with actively infusing heparin must be used, pause the infusion for at least 2 minutes, and draw specimen below the IV site. For patients with a central venous catheter (CVC), lab must be drawn peripherally (not from CVC). us Tesha Barrera NP LAB BLOOD ORDERABLES Final Resul t [facility] Department [place] [address] * (ABNORMAL) aPTT (12/27/2024 12:24 AM CDT) aPTT 77(H) 26 - 38 sec Comment: Interpretive Data Heparin therapeutic range: 66.0 - 100.0 seconds. Range based on correlation with therapeutic heparin activity range of 0.3 - 0.7 Units/mL. Current interpretive data was last revised on 2023. Blood 12/27/2024 12:2 4 AM CDT 12/27/2024 12:55 AM CDT Narrative CYNTHIA MURPHY - 12/27/2024 1:04 AM CDT STAT PTT timing: - Draw 6 hours after heparin infusion initiation - Draw 6 hours after every dose change until 2 consecutive PTTs are therapeutic - Once 2 consecutive PTTs are therapeutic, obtain with daily labs until infusion is discontinued - - Restart every 6 hour lab draws and follow instructions accordingly if PTT is outside of therapeutic range Do not draw lab from IV line that is actively infusing heparin. Use the opposite arm. If arm with actively infusing heparin must be used, pause the infusion for at least 2 minutes, and draw specimen below the IV site. For patients with a central venous catheter (CVC), lab must be drawn peripherally (not from CVC). us Tesha Barrera FIELD CONSULTANT LAB BLOOD ORDERABLES Final Resul t Performing Organization Address City/[facility]/ZIP Co de Phone Number [facility] Department [place] [address] * Troponin I high-sensitivity (12/26/2024 6:11 PM CDT) Trop I hs 9 <=35 ng/L Comment: Interpretive Data For further hscTnI resources including the diagnostic algorithm and an aid in interpretation, copy and paste this link: [email or web address].testcatalog.org/show/[email or web address] Current Interpretive Data last revised 2019. Blood 12/26/2024 6:11 PM CDT 12/26/2024 7:21 PM CDT us Justin Lambert FIELD CONSULTANT LAB BLOOD ORDERABLES F inal Result Performing Organization Address City/[facility]/ZIP Co de Phone Number CYNTHIA [facility] Department [place] [address] * (ABNORMAL) Pro B-type natriuretic peptide (12/26/2024 6:11 PM CDT) NT-proBNP 1,543(H) <=300 pg/mL Comment: Interpretive Comments: A. Dyspnea in Acute Care Setting All Ages: < 300 pg/ml, acute heart failure unlikely. < 50 yrs: 300 - 450 pg/ml, further investigation warranted. > 450 pg/ml, acute heart failure likely. 50 - 74 yrs: 300 - 900 pg/ml, further investigation warranted. > 900 pg/ml, acute heart failure likely . > or = 75 yrs: 450 - 1800 pg/ml, further investigation warranted. > 1800 pg/ml, acute heart failure likely. B. Non-acute Setting < 75 yrs < 125 pg/ml, rules out heart failure. > or = 125 pg/ml, further investigation warranted. > or = 75 yrs < 450 pg/ml, rules out heart failure. > or = 450 pg/ml, further investigation warranted. - Knowledge of each individual patient's NT-proBNP range may be more useful than using similar cut-points for every patient. Please note that marked elevations in NT-proBNP levels may be observed in state other than Left Ventricular Congestive Failure, including: acute coronary syndromes, right heart strain/failure (including pulmonary embolism and cor pulmonale), critical illness, renal failure, as well as advanced age. - References: 1. Homer PHILLIP et.al. Eur Heart J. 2006:27:330-337. 2. Kunal RW, Dulce AM. J. AM Florence Cardiol: Cardiovasc Imag. 2009;2: 216- 225. Interpretive Data Last Revised Date: 2018. Blood 12/26/2024 6:11 PM CDT 12/26/2024 7:20 PM CDT us Justin Lambert NP LAB BLOOD ORDERABLES F inal Result [facility] Department [place] [address] * (ABNORMAL) aPTT (12/26/2024 6:11 PM CDT) aPTT 24(L) 26 - 38 sec Comment: Interpretive Data Heparin therapeutic range: 66.0 - 100.0 seconds. Range based on correlation with therapeutic heparin activity range of 0.3 - 0.7 Units/mL. Current interpretive data was last revised on 2023. Blood 12/26/2024 6:11 PM CDT 12/26/2024 7:25 PM CDT Justin Lambert LAB BLOOD ORDERABLES F inal Result Performing Organization Address [facility] Co de Phone Number CYNTHIA [facility] [place] [address] * Protime-INR (12/26/2024 6:11 PM CDT) PT 11.4 10.2 - 13.5 sec INR 1.01 0.90 - 1.20 [facility] Comment: Interpretive data Oral anticoagulant therapeutic ranges: Venous thromboembolism prophylaxis or treatment: 2.0-3.0 CARDIOLOGY Standard range: 2.0-3.0 High-intensity range: 2.5-3.5 Refer to indication-specific guidelines for appropriate target ranges for prosthetic heart valve replacement. Current interpretive data was last revised on 2019. Blood 12/26/2024 6:11 PM CDT 12/26/2024 7:25 PM CDT Justin Lambert LAB BLOOD ORDERABLES F inal Result Performing Organization Address City/[facility] Co de Phone Number [facility] [place] [address] * TSH (12/26/2024 6:11 PM CDT) Thyroid Stimulating Hormone 1.85 0.30 - 4.20 mcIUnit/mL Blood 12/26/2024 6:11 PM CDT 12/26/2024 7:20 PM CDT Justin Lambert FIELD CONSULTANT LAB BLOOD ORDERABLES F inal Result Performing Organization Address [facility] de Phone Number [facility] [place] [address] * T4, free (12/26/2024 6:11 PM CDT) [facility] Free T4 1.22 0.90 - 1.70 ng/dL Blood 12/26/2024 6:11 PM CDT 12/26/2024 7:20 PM CDT Justin Lambert FIELD CONSULTANT LAB BLOOD ORDERABLES F inal Result Performing Organization Address [facility] [place] [address] * TYPE AND SCREEN 14 DAY (12/26/2024 2:28 PM CDT) [facility] Becca, indirect Negative ABO Rh A Positive [facility] Blood 12/26/2024 2:28 PM CDT 12/26/2024 3:59 PM CDT Narrative [facility] - 12/26/2024 4:56 PM CDT Is this test being ordered in advance for a procedure?->Yes Expected date of procedure:->12/28/24 Has the patient been transfused in the past 3 months?->No Zohra Dumont FIELD CONSULTANT LAB BLOOD BANK TEST O RDERABLES Final Result Performing Organization Address [facility] [place] [address] * (ABNORMAL) eGFR (12/26/2024 2:28 PM CDT) [facility] eGFR 52(L) >=60 mL/min/1. 73 m2 Comment: Interpretive Data Reference Interval Normal >/= 90 mL/min/1.73m2 Mildly decreased* 60 - 89 mL/min/1.73m2 Mildly to moderately decreased 45 - 59 mL/min/1.73m2 Moderately to severely decreased 30 - 44 mL/min/1.73m2 Severely decreased 15 - 29 mL/min/1.73m2 Kidney Failure < 15 mL/min/1.73m2 *Relative to young adult level Estimated glomerular filtration rate is determined by the 2020 CKD-EPI equation recommended by the National Kidney Foundation (A Unifying Approach to GFR Estimation: Recommendations of the NKF-ASK Task Force on Reassessing the Inclusion of Race in Diagnosing Kidney Disease, JASN 202). The CKD-EPI equation should not be used for patients with unstable renal function and has not been validated in children and those over 70. Current interpretive data was last reviewed 2021. Blood 12/26/2024 2:28 PM CDT 12/26/2024 3:55 PM CDT Zohra Dumont NP LAB BLOOD ORDERABLES Final Result [facility] Department [place] [address] * (ABNORMAL) Differential, auto (12/26/2024 2:28 PM CDT) Neutrophil abs 5.59 1.50 - 6.50 K/cumm Imm gran abs 0.05 0.00 - 0.10 K/cumm [facility] Lymphocyte abs 0.67(L) 0.80 - 3.30 K/cumm [facility] Monocyte abs 0.51 0.20 - 0.80 K/cumm [facility] Eosinophil abs 0.03 0.00 - 0.50 K/cumm [facility] Basophil abs 0.03 0.00 - 0.10 K/cumm [facility] Neutrophil pct 81.4 % [facility] Comment: Interpretive Data Percent cell count reference ranges are not reported, since discordance with absolute values may lead to misinterpretation of CBC data. Current Interpretive Data was last revised on 2017. Imm gran pct 0.7 % [facility] Comment: Interpretive Data Percent cell count reference ranges are not reported, since discordance with absolute values may lead to misinterpretation of CBC data. Current Interpretive Data was last revised on 2017. Lymphocyte pct 9.7 % [facility] Comment: Interpretive Data Percent cell count reference ranges are not reported, since discordance with absolute values may lead to misinterpretation of CBC data. Current Interpretive Data was last revised on 2017. Monocyte pct 7.4 % [facility] Comment: Interpretive Data Percent cell count reference ranges are not reported, since discordance with absolute values may lead to misinterpretation of CBC data. Current Interpretive Data was last revised on 2017. Eosinophil pct 0.4 % [facility] Comment: Interpretive Data Percent cell count reference ranges are not reported, since discordance with absolute values may lead to misinterpretation of CBC data. Current Interpretive Data was last revised on 2017. Basophil pct 0.4 % [facility] Comment: Interpretive Data Percent cell count reference ranges are not reported, since discordance with absolute values may lead to misinterpretation of CBC data. Current Interpretive Data was last revised on 2017. Blood 12/26/2024 2:28 PM CDT 12/26/2024 3:55 PM CDT Zohra Dumont NP LAB BLOOD ORDERABLES Final Result [facility] Department [place] [address] * (ABNORMAL) Urinalysis reflex to microscopic and culture Urine, clean voided (12/26/2024 2:28 PM CDT) Color, ur Straw Yellow Clarity, ur Clear Clear [facility] Specific gravity, ur 1.013 1.003 - 1.030 [facility] pH, urine 6.0 [facility] Comment: Interpretive Data U rine pH is affected by diet, medications, systemic acid-base disturbances, and renal tubular function. pH may affect urinary stone formation. For example, urine pH below 6.0 may help reduce the tendency for calcium phosphate stones and pH greater than 6.0 may reduce the tendency for uric acid stone formation. Source: [facility] Current Interpretive Data was last revised on 2017 Protein, ur ql Negative Negative [facility] Glucose, ur ql Trace(A) Negative [facility] Ketones, ur Negative Negative [facility] Bilirubin, ur Negative Negative [facility] Blood, ur Negative Negative [facility] Urobilinogen, ur <2.0 <2.0 mg/dL [facility] Nitrite, ur Negative Negative [facility] Leukocyte esterase, ur Negative Negative [facility] UA reflex comment Reflex conditions for microscopic UA and culture not met. [facility] Urine, clean voided 12/26/2024 2:28 PM CDT 12/26/2024 3:50 PM CDT Zohra Dumont NP LAB MICROBIOLOGY - [facility] ORDERABLES Final Result [facility] Department [place] [address] * (ABNORMAL) CBC with auto differential (12/26/2024 2:28 PM CDT) WBC 6.88 3.80 - 9.90 K/cumm Hgb 13.2 13.0 - 17.5 g/dL [facility] Hct 39.6 38.9 - 50.3 % [facility] Plt 168 150 - 400 K/cumm [facility] MPV 10.7 9.1 - 12.3 fL [facility] RBC 3.86(L) 4.30 - 5.80 M/cumm [facility] MCV 102.6(H) 81.3 - 96.4 fL [facility] MCH 34.2(H) 27.1 - 33.3 pg [facility] MCHC 33.3 32.3 - 35.7 g/dL [facility] RDW CV 14.2 11.1 - 14.9 % [facility] RDW SD 53.5(H) 35.7 - 48.1 fL [facility] NRBC abs 0.00 0.00 - 0.01 K/cumm [facility] Blood 12/26/2024 2:28 PM CDT 12/26/2024 3:55 PM CDT us Zohra Dumont FIELD CONSULTANT LAB BLOOD ORDERABLES Final Result Performing Organization Address [facility] de Phone Number [facility] [place] [address] * (ABNORMAL) Hemoglobin A1c (12/26/2024 2:28 PM CDT) Hgb A1C 5.9(H) 4.0 - 5.6 % Estimated Average Glucose 123 mg/dL [facility] Comment: The ADA recommends reporting an estimated Average Glucose (eAG) with all Hemoglobin A1c results using the equation derived from a study of 507 normal and diabetic adults. Minority populations were underrepresented and children were not included. (Diabetes Care 2020; 43(S1): S66-S76). The eAG is not equivalent to a fasting glucose. Blood 12/26/2024 2:28 PM CDT 12/26/2024 3:58 PM CDT Parth Dalton MD LAB BLOOD ORDERABLES Final Re sult Performing Organization Address [facility] [place] [address] * (ABNORMAL) Comprehensive metabolic panel (12/26/2024 2:28 PM CDT) Sodium 139 135 - 145 mmol/L Potassium, pl 5.0(H) 3.3 - 4.9 mmol/L [facility] Comment:Hemolyzed; Potassium value may be falsely elevated by as much as 0.3-0.5 mmol/L. Suggest redraw and reanalysis. Chloride 104 97 - 110 mmol/L [facility] CO2 25 22 - 32 mmol/L [facility] Anion gap 10 2 - 15 mmol/L [facility] BUN 29(H) 6 - 25 mg/dL [facility] Creatinine 1.42(H) 0.80 - 1.30 mg/dL [facility] Glucose 85 70 - 199 mg/dL [facility] Comment: Interpretive Data Fasting glucose >/= 126 mg/dl is diagnostic for diabetes. Fasting is defined as no caloric intake for at least 8 hours. Fasting glucose between 100 mg/dl to 125 mg/dl is diagnostic of prediabetes. In a patient with classic symptoms of hyperglycemia or hyperglycemic crisis, a random glucose >/= 200 mg/dl is diagnostic for diabetes. In the absence of unequivocal hyperglycemia, results should be confirmed by repeat testing. The classification and Diagnosis of Diabetes Diabetes Care 2021; 46: S19-S40. Current interpretive data was last revised 2022. Calcium 9.6 8.5 - 10.3 mg/dL [facility] Bilirubin, total 0.8 0.1 - 1.2 mg/dL [facility] Protein, pl 6.9 6.5 - 8.5 g/dL [facility] Albumin 4.2 3.5 - 5.0 g/dL [facility] Alk phos 34(L) 40 - 130 Units/L [facility] ALT 41 7 - 55 Units/L [facility] AST 33 10 - 50 Units/L [facility] Comment:Hemolyzed; result ma y be falsely elevated Blood 12/26/2024 2:28 PM CDT 12/26/2024 3:55 PM CDT Zohra Dumont NP LAB BLOOD ORDERABLES Final Result [facility] [place] [address] * ECG 12 lead (12/26/2024 1:43 PM CDT) Ventricular Rate EKG/Min 89 BPM [facility] QRS-Interval (MSEC) 94 ms [facility] QT-Interval (MSEC) 338 ms [facility] QTc 411 ms [facility] R Moffit -15 degrees [facility] T Moffit -29 degrees [facility] Diagnosis Atrial fibrillation Cannot rule out Inferior infarct , age undetermined Possible Anterior infarct , age undetermined Abnormal ECG When compared with ECG of 15-NOV-2024 08:09, PREVIOUS ECG IS PRESENT Confirmed by Nel Ross MD ([id number]) on 12/27/2024 11:18:12 AM [facility] Simplify 12/26/2024 1:43 PM CDT 12/27/2024 11:18 AM CDT Zohra Dumont NP ECG ORDERABLES Final Result [facility] Simplify [facility] * CT Chest Abdomen Pelvis W Contrast (12/24/2024 11:29 AM CDT) Anatomical Region Laterality Modality Body N/A Computed Tomogra phy 01/12/2025 3:07 PM CDT Narrative 01/12/2025 3:17 PM CDT EXAM DESCRIPTION: CT CHEST ABDOMEN PELVIS W CONTRAST REASON FOR STUDY: Restaging for kidney cancer 6 month kidney cancer f/u. No complaints. Hx of hernia repair, appy, trach, right nephrectomy. TECHNIQUE: CT scan of the chest, abdomen, and pelvis performed with intravenous and without oral contrast using helical scanning technique with dynamic intravenous contrast injection. Reconstructed coronal and sagittal MPR images reviewed. All images stored on PACS. Automated exposure control was used as a dose optimization technique for this examination. CONTRAST TYPE/DOSE: 100mL of IOVERSOL 350 MG IODINE/ML INTRAVENOUS SYRINGE injected via intravenous COMPARISON: 07/01/2024 FINDINGS: CHEST Lungs show mild prominence of the interlobular septa likely generalized fibrosis. Some dependent atelectasis in the lung bases. No suspicious nodules or masses. No infiltrates. Tracheostomy tube is in place. There is no evidence of consolidations or bronchial thickening. Thoracic aorta and pulmonary arteries are normal. Asymmetry of the vocal cords both true and false with some nodular thickening along the left lateral vocal cords, correlate clinically. No supraclavicular or axillary lymphadenopathy. The mediastinal window images show a normal cardiac chambers other than perhaps mild left atrial enlargement. There is heavy calcification of the right and left coronary arteries. No pericardial or pleural effusions.. There is a small hiatal hernia. No mediastinal adenopathy. ABDOMEN/PELVIS The liver enhances uniformly. No obvious masses. Gallbladder is contracted, normal. Right nephrectomy changes. Left kidney normal. Adrenals normal. Aorta is smooth and normal in caliber with mild plaque. Spleen and pancreas are normal. No retroperitoneal or mesenteric adenopathy. No pelvic or iliac or inguinal adenopathy. The stomach is decompressed. Small bowel has some mild excessive fluid but nondilated. This is nonspecific. There is sigmoid diverticulosis, no diverticulitis. Is excessive fluid in the hepatic flexure and proximal transverse colon could be a sign of a state of diarrhea. Appendix is not identified. No significant ventral hernia. Urinary bladder is mildly lobulated but otherwise normal. Prostate and seminal vesicles are normal. Bony structures show generalized osteopenia. No convincing metastatic lesions. IMPRESSION: No evidence of recurrent neoplasm or metastasis. THIS IS AN ELECTRONICALLY VERIFIED FINAL REPORT 01/12/2025 3:17 PM - Electronically signed by Yaya Cloud M.D. DA: LORIN Report ID: [id number] Reading Location: [place] [address] Procedure Note Yaya Cloud MD - 01/12/2025 EXAM DESCRIPTION: CT CHEST ABDOMEN PELVIS W CONTRAST REASON FOR STUDY: Restaging for kidney cancer 6 month kidney cancer f/u. No complaints. Hx of hernia repair, appy,trach, right nephrectomy. TECHNIQUE: CT scan of the chest, abdomen, and pelvis performed with intravenous and without oral contrast using helical scanning techniquewith dynamic intravenous contrast injection. Reconstructed coronal and sagittalMPR images reviewed. All images stored on PACS. Automated exposure control was used as a dose optimization technique for this examination. CONTRAST TYPE/DOSE: 100mL of IOVERSOL 350 MG IODINE/ML INTRAVENOUS SYRINGE injected via intravenous COMPARISON: 07/01/2024 FINDINGS: CHEST Lungs show mild prominence of the interlobular septa likely generalized fibrosis. Some dependent atelectasis in the lung bases. No suspicious nodules or masses. No infiltrates. Tracheostomy tube is in place. Thereis no evidence of consolidations or bronchial thickening. Thoracic aorta and pulmonary arteries are normal. Asymmetry of the vocal cords both true and false with some nodular thickening along the left lateral vocal cords, correlate clinically. No supraclavicular or axillary lymphadenopathy. The mediastinal window images show a normal cardiac chambers other than perhaps mild left atrial enlargement. There is heavy calcification of the right and left coronary arteries. No pericardial or pleural effusions.. There is a small hiatal hernia. No mediastinal adenopathy. ABDOMEN/PELVIS The liver enhances uniformly. No obvious masses. Gallbladder iscontracted, normal. Right nephrectomy changes. Left kidney normal. Adrenals normal. Aorta is smooth and normal in caliber with mild plaque. Spleen andpancreas are normal. No retroperitoneal or mesenteric adenopathy. No pelvic oriliac or inguinal adenopathy. The stomach is decompressed. Small bowel has some mild excessive fluidbut nondilated. This is nonspecific. There is sigmoid diverticulosis, no diverticulitis. Is excessive fluid in the hepatic flexure and proximal transverse colon could be a sign of a state of diarrhea. Appendix is not identified. No significant ventral hernia. Urinary bladder is mildly lobulated but otherwise normal. Prostate and seminal vesicles are normal. Bony structures show generalized osteopenia. No convincing metastatic lesions. IMPRESSION: No evidence of recurrent neoplasm or metastasis. THIS IS AN ELECTRONICALLY VERIFIED FINAL REPORT 01/12/2025 3:17 PM - Electronically signed by Yaya Cloud M.D. DA: LORIN Report ID: [id number] Reading Location: [place] [address] PROCEDURES Final R esult * (ABNORMAL) POCT creatinine for contrast evaluation (12/24/2024 11:21 AM CDT) Creatinine POC 1.40(H) 0.80 - 1.30 mg/dL Comment:Testing performed by : [facility], [address] [place] [address], [place]., [address] Blood 12/24/2024 11:2 1 AM CDT 12/24/2024 11:21 AM CDT Mykel Mccauley DO POINT OF CARE TEST ORDERABLE S Final Result [facility] [address] [facility] Department [place] [address] * Hepatitis B core antibody, total Blood (12/07/2024 12:05 PM CDT) Pathologist [facility] Hep B core IgG/IgM Nonreactive Nonreactive Comment:Testing performed by : [facility], [address] [facility], [place]., [address] Blood 12/07/2024 12:0 5 PM CDT 12/08/2024 9:53 AM CDT Jeferson Elena MD LAB MICROBIOLOGY - GENERAL ORDERABLES Final Result Performing Organization Address [facility] Co de Phone Number [facility] [address] [place] [address] * Hepatitis B surface antibody (immune status) Blood (12/07/2024 12:05 PM CDT) Pathologist [facility] HBsAb (immune status) Nonreactive Comment: Interpretive Data Nonreactive: This result is consistent with a lack of immunity to Hepatitis B Virus when used in the setting of routine screening. Equivocal: The immune status of the individual should be further assessed, if appropriate, after consideration of clinical status, risk factors, and additional diagnostic information. Reactive: This result is consistent with immunity to Hepatitis B Virus when used in the setting of routine screening. Current interpretive data was last revised on 19. Blood 12/07/2024 12:0 5 PM CDT 12/07/2024 6:05 PM CDT Jeferson Elena MD LAB MICROBIOLOGY - GENERAL ORDERABLES Final Result [facility] [address] [address] [facility] [place] [address] * Hepatitis B Surface Antigen Blood (12/07/2024 12:05 PM CDT) Pathologist [facility] HepBsAg Nonreactive Nonreactive Blood 12/07/2024 12:0 5 PM CDT 12/07/2024 6:05 PM CDT us Jeferson Elena MD LAB MICROBIOLOGY - GENERAL ORDERABLES Final Result CYNTHIA CISNEROS [address] Department [place] [address] * Lipid panel (12/07/2024 12:05 PM CDT) Cholesterol 159 30 - 199 mg/dL Comment: Interpretive Data Ages < or = 19 years Acceptable: <170 mg/dL Borderline high: 170-199 mg/dL High: >or= 200 mg/dL Ages > or = 20 years Desirable: <200 mg/dL Borderline high: 200-239 mg/dL High: >or= 240 mg/dL Literature References: 1. Expert Panel on Integrated Guidelines for Cardiovascular Health and Risk Reduction in Children and Adolescents. Pediatrics 2011;128:S213 2. NCEP Expert Panel. Circulation 2004;110:227 Current Interpretive Data was last revised on 2018. Triglycerides 130 <=149 mg/dL CYNTHIA CISNEROS Comment: Interpretive Data Ages < or = 9 years Acceptable: <75 mg/dL Borderline high: 75-99 mg/dL High: >or= 100 mg/dL Ages 10 to 20 years Acceptable: <90 mg/dL Borderline high: 90-129 mg/dL High: >or= 130 mg/dL Ages > or = 20 years Desirable: <150 mg/dL Borderline high: 150-199 mg/dL High: 200-499 mg/dL Very high: >or= 499 mg/dL Literature References: 1. Expert Panel on Integrated Guidelines for Cardiovascular Health and Risk Reduction in Children and Adolescents. Pediatrics 2011;128:S213 2. NCEP Expert Panel. Circulation 2004;110:227 Current Interpretive Data was last revised on 2018. HDL 55 >=40 mg/dL CYNTHIA CISNEROS Comment: Interpretive Data Ages < or = 19 years Acceptable: >45 mg/dL Borderline low: 40-45 mg/dL Low: <40 mg/dL Ages > or = 20 years Desirable: >or= 60 mg/dL Low: <40 mg/dL Literature References: 1. Expert Panel on Integrated Guidelines for Cardiovascular Health and Risk Reduction in Children and Adolescents. Pediatrics 2011;128:S213 2. NCEP Expert Panel. Circulation 2004;110:227 Current Interpretive Data was last revised on 2018. LDL, calculated 81 <=129 mg/dL CYNTHIA CISNEROS Comment: Interpretive Data Ages < or = 19 years Acceptable: <110 mg/dL Borderline high: 110-129 mg/dL High: >or= 130 mg/dL Ages > or = 20 years Optimal: <100 mg/dL Near optimal: 100-129 mg/dL Borderline high: 130-159 mg/dL High: >160 mg/dL Calculated using the Jan LDL-C estimating equation. This equation was implemented on 2024. Prior to this date LDL-C was estimated using the Friedewald equation. Literature References: 1. Expert Panel on Integrated Guidelines for Cardiovascular Health and Risk Reduction in Children and Adolescents. Pediatrics 2011;128:S213 2. NCEP Expert Panel. Circulation 2004;110:227 3. Jan Lewis et al. TAMMIE Cardiol. 2019September 13;5(5):540-548. doi: 10.1001/jamacardio.2020.0013 Current Interpretive Data was last revised on 2024. Non-HDL Cholesterol 104 mg/dL CYNTHIA CISNEROS Comment: Interpretive Data Ages < or = 19 years Acceptable: <120 mg/dL Borderline high: 120-144 mg/dL High: >145 mg/dL Ages > or = 20 years When triglycerides are >200 mg/dL, Non-HDL cholesterol is a secondary target of therapy with treatment goals that are 30 mg/dL greater than the LDL cholesterol target. Literature References: 1. Expert Panel on Integrated Guidelines for Cardiovascular Health and Risk Reduction in Children and Adolescents. Pediatrics 2011;128:S213 2. NCEP Expert Panel. Circulation 2004;110:227 Current Interpretive Data was last revised on 2018. Chol/HDL ratio 3 CYNTHIA Blood 12/07/2024 12:0 5 PM CDT 12/07/2024 6:05 PM CDT Narrative CYNTHIA CH - 12/07/2024 6:27 PM CDT Has the patient been fasting for 8 hours or more?->Yes Has the patient fasted?->Yes us Jeferson Elena MD LAB BLOOD ORDERABLES Final Result Performing Organization Address [facility] [place] [address] [address] [place] [address] * Hepatitis C antibody Blood (02/17/2023 3:47 PM CDT) Pathologist [facility] Hep C Ab Nonreactive Nonreactive Comment: Interpretive Data Nonreactive: Antibodies to HCV not detected. Does NOT exclude the possibility of recent exposure to HCV. Equivocal: Equivocal for HCV antibodies. Supplemental molecular testing will be automatically performed to determine infection status in accordance with current CDC screening recommendations. Reactive: Positive for HCV antibodies. This may represent current or past HCV infection. Supplemental molecular testing will be automatically performed to determine current infection status in accordance with current CDC screening recommendations. Interpretive data was last revised on 2019. Blood 02/17/2023 3:47 PM CDT 02/17/2023 6:43 PM CDT Jeferson Elena MD LAB MICROBIOLOGY - GENERAL ORDERABLES Final Result Performing Organization Address [facility] [place] [address] [address] [place] [address] * Stool DNA - Cologuard (10/20/2022 11:30 AM CDT) Pathologist [facility] Stool DNA - Cologuard Negative Negative [facility] (CLIA #:[id number]) Comment: NEGATIVE TEST RESULT. A negative Cologuard result indicates a low likelihood that a colorectal cancer (CRC) or advanced adenoma (adenomatous polyps with more advanced pre-malignant features) is present. The chance that a person with a negative Cologuard test has a colorectal cancer is less than 1 in 1500 (negative predictive value >99.9%) or has an advanced adenoma is less than 5.3% (negative predictive value 94.7%). These data are based on a prospective cross-sectional study of 10,000 individuals at average risk for colorectal cancer who were screened with both Cologuard and colonoscopy. (Moshe Harvey al, N Engl J Med 2014;370(14):7717-2132) The normal value (reference range) for this assay is negative. COLOGUARD RE-SCREENING RECOMMENDATION: Periodic colorectal cancer screening is an important part of preventive healthcare for asymptomatic individuals at average risk for colorectal cancer. Following a negative Cologuard result, the [place] [employer] Society and U.S. Multi-Society Task Force screening guidelines recommend a Cologuard re-screening interval of 3 years. References: [place] [employer] Guideline for Colorectal Cancer Screening: https://www.cancer.org/cancer/pkfxa-ramsga-lftyow/oezurshdk-ghopgdoav-iqkiquo/ac s-rec ommendations.html.; Brian DK, Tracie CR, Yan WoodK, Colorectal Cancer Screening: Recommendations for Physicians and Patients from the U.S. Multi-Society Task Force on Colorectal Cancer Screening , Am J Gastroenterology 2017; 112:8608-1927. TEST DESCRIPTION: Composite algorithmic analysis of stool DNA-biomarkers with hemoglobin immunoassay. Quantitative values of individual biomarkers are not reportable and are not associated with individual biomarker result reference ranges. Cologuard is intended for colorectal cancer screening of adults of either sex, 45 years or older, who are at average-risk for colorectal cancer (CRC). Cologuard has been approved for use by the U.S. FDA. The performance of Cologuard was established in a cross sectional study of average-risk adults aged 50-84. Cologuard performance in patients ages 45 to 49 years was estimated by sub-group analysis of near-age groups. Colonoscopies performed for a positive result may find as the most clinically significant lesion: colorectal cancer [4.0%], advanced adenoma (including sessile serrated polyps greater than or equal to 1cm diameter) [20%] or non- advanced adenoma [31%]; or no colorectal neoplasia [45%]. These estimates are derived from a prospective cross-sectional screening study of 10,000 individuals at average risk for colorectal cancer who were screened with both Cologuard and colonoscopy. (Moshe Harvey al, N Engl J Med 2014;370(14):9405-5809.) Cologuard may produce a false negative or false positive result (no colorectal cancer or precancerous polyp present at colonoscopy follow up). A negative Cologuard test result does not guarantee the absence of CRC or advanced adenoma (pre-cancer). The current Cologuard screening interval is every 3 years. ([place] [employer] Society and U.S. Multi-Society Task Force). Cologuard performance data in a 10,000 patient pivotal study using colonoscopy as the reference method can be accessed at the following location: [email or web address]/results. Additional description of the Cologuard test process, warnings and precautions can be found at [email or web address]. Stool 10/20/2022 11:3 0 AM CDT 10/21/2022 9:26 PM CDT us Yaya Elizondo MD LAB BODY FLUIDS AND STOOLS OR DERABLES Final Result [facility] (CLIA #:[id number]) [address] [place] [address] from Last 3 Months or Most Recently Relevant to Health Maintenance Insurance MEDICARE [facility] MEDICARE SUPPLEMENT MEDICARE [facility] MEDICARE SUPPLEMENT MEDICARE [facility] OOS Advance Directives For more information, please contact: [phone] Documents on File Type Date Recorded Patient It Solutions Architect Expl anation ADVANCE DIRECTIVE 04/14/2022 6:41 AM [facility] DNR * Full Code (Latest Code Status on File) Date Activated Date Inactivated Comments 12/28/2024 2:48 PM 01/19/2025 7:45 PM * Full Code Date Activated Date Inactivated Comments 12/26/2024 4:53 PM 12/28/2024 2:48 PM * Full Code Date Activated Date Inactivated Comments 11/15/2024 1:13 PM 11/15/2024 8:50 PM * Full Code Date Activated Date Inactivated Comments 08/29/2024 4:39 PM 08/29/2024 10:25 PM * Full Code Date Activated Date Inactivated Comments 02/14/2024 12:32 PM 02/14/2024 7:47 PM Healthcare Agents on File Name Relationship Healthcare Agent [facility] Communication [facility] Care Agent Care Teams Electronic Coils Supervisor Relationship Specialty Start Date End Date Jeferson Elena MD [address] [facility] [address] [place] [address] PCP - General Family Medicine 02/17/23 Mykel Mccauley DO [address] [place] [address] MEDICAL ONCOLOGY, [facility] [address] [place] [address] Medical Oncologist/Hematologis t Hematology and Oncology 08/28/21 Micheal Cabral MD [address] [facility] [address] [place] [address] Consulting Physician General Surgery 08/11/22 Artie Henderson MD [address] [facility] [address] [place] [address] Referring Physician Cardiology 02/17/23 Ana M Renteria MD [address] [facility] [address] [place] [address] Referring Physician Cardiology 11/21/23 [place] [address] [address] [facility] [address] [place] [address] Consulting Physician Endocrinology Diabetes & Metabolism 11/21/23 [place] [address] [address] [facility] [address] [place] [address] Nurse Practitioner Endocrinology Diabetes & Metabolism 11/21/23 Parth Dalton MD [id number] [place] [address] Surgeon Cardiothoracic Surgery 12/07/24
--- OUTSIDE RECORDS SUMMARY | 2025-02-18 13:24 | XMS_ITS ---
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 Normal [...] abx regimen 01/17 downsized trach to 5.0 Vicky Consult ID for further recommendations on abx [...] years he has a metal trach 5 Vicky that he maintains at home. He orders [...] 03/19/2024 Assessment & Plan (03/19/2024 11:05 AM EAR SPECIALIST): Patient is interested in the steroid injections. Will refer him back to Orthopedics to discuss steroid injections for both of his knees Hand arthritis 03/19/2024 Assessment & Plan (03/19/2024 11:06 AM EAR SPECIALIST): Will obtain new x-rays today. Referral to ortho hand in [place]. I told him alternatively there would be Dr. Du at [facility]. Encounter for Medicare annual wellness exam 12/2023 Assessment & Plan (11/21/2023 11:16 AM CDT): A(n) yearly Medicare Annual Wellness Visit has been performed today. Holger Titus is not up to date on [...] to establish care has been performed today. Holger Titus is up to date on screening [...] daily Assessment & Plan (07/13/2024 10:40 AM EAR SPECIALIST): Chronic problem. 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 In case of any extreme weakness, abdominal pain, diarrhea or dizziness, it is recommended for you to call an ambulance and proceed to the nearest emergency room. Assessment & Plan (07/05/2023 2:53 PM EAR SPECIALIST): Chronic problem. 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 In case of any extreme weakness, abdominal pain, diarrhea or dizziness, it is recommended for you to call an ambulance and proceed to the nearest emergency room. Assessment & Plan (05/19/2023 12:49 PM EAR SPECIALIST): Patient continuing his Prednisone and set to follow up with Dereje in June. Assessment & Plan (11/18/2022 3:01 PM CDT): Chronic problem. Discussed tapering prednisone dose from 15mg total/day down to 5mg daily. Reserving 10-15mg for sick days. Will call if any difficulties with tapering. Reviewed red flags. Will check TSH, T3, T4 today. Verified that he uses [facility]. Aware to check results/results letter in mychart. Will contact by phone if needed. 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 In [...] 07/04/2022 Assessment & Plan (07/05/2022 7:58 PM EAR SPECIALIST): On 12/2021 started high dose steroid due [...] tapering. Assessment & Plan (07/04/2022 4:17 PM EAR SPECIALIST): On 12/2021 started high dose steroid due [...] Cardiology Assessment & Plan (05/19/2023 12:42 PM EAR SPECIALIST): Patient continues to follow with Cardiology. Continues [...] changes. Assessment & Plan (07/05/2022 8:13 PM EAR SPECIALIST): TTE 03/2022 with LV dilation with EF [...] 09/09/2022) Assessment & Plan (07/04/2022 4:23 PM EAR SPECIALIST): TTE 03/2022 with LV dilation with EF [...] cost Assessment & Plan (07/03/2022 5:05 PM EAR SPECIALIST): TTE 03/2022 with LV dilation with EF [...] cost Assessment & Plan (04/05/2022 4:32 PM EAR SPECIALIST): Heart Failure with Reduced Ejection Fraction: EF [...] currently Assessment & Plan (04/04/2022 3:23 PM EAR SPECIALIST): Heart Failure with Reduced Ejection Fraction: EF 25% (TTE 03/2022), profile A, NYHA II, - Diuretic: None currently - Beta Jihan: Metoprolol tartrate 37.5 mg BID, will consolidate to XL prior to D/C - BRENTON/ARB/ARNI: On Entresto at home, will resume as tolerated - Device: No device currently Failure to thrive in adult 03/25/2022 Assessment & Plan (04/05/2022 4:31 PM EAR SPECIALIST): - Patient presenting with decreased PO intake, noncompliance medications, reported wt loss - RD consult, currently on TF via DHT - Swallow evaluation to remove DHT and begin oral nutrition Assessment & Plan (04/04/2022 3:20 PM EAR SPECIALIST): - Patient presenting with decreased PO intake, noncompliance medications, reported wt loss - RD consult, currently on TF via DHT Falls 03/25/2022 Assessment & Plan (04/05/2022 4:31 PM EAR SPECIALIST): - Patient lives alone with reportedly intermittent falls at home; last prior to admission without reported head trauma - Head CT unremarkable - Fall precautions, empiric coverage for Wernicke per above Assessment & Plan (04/04/2022 3:20 PM EAR SPECIALIST): - Patient lives alone with reportedly intermittent falls at home; last prior to admission without reported head trauma - Head CT unremarkable - Fall precautions, empiric coverage for Wernicke per above - PT/OT High risk medication use 03/25/2022 Atrial fibrillation 12/01/2021 Overview (12/01/2021): Added automatically from request for surgery [id number] Assessment & Plan (01/19/2025 8:45 AM CDT): [...] 01/19 Assessment & Plan (07/05/2022 8:09 PM EAR SPECIALIST): EKG on admission w/ AFL - eliquis - metop Assessment & Plan (07/04/2022 4:24 PM EAR SPECIALIST): EKG on admission w/ AFL - eliquis - metop Assessment & Plan (07/02/2022 9:24 PM EAR SPECIALIST): EKG on admission w/ AFL - eliquis - metop Assessment & Plan (04/05/2022 4:30 PM EAR SPECIALIST): Presenting with Afib with HR currently at goal < 110, episode of hypotension 03/29 with RVR requiring ICU transfer - On metoprolol tartrate 37.5 mg BID, rate controlled - Continue telemetry for now (currently rate controlled) - Theraputic lovenox Assessment & Plan (04/04/2022 3:18 PM EAR SPECIALIST): Presenting with Afib with HR currently at [...] function Assessment & Plan (03/28/2022 2:53 PM EAR SPECIALIST): - Recent TTE 2wks ago with EF [...] daily. Assessment & Plan (07/05/2022 8:06 PM EAR SPECIALIST): Statin Assessment & Plan (07/04/2022 4:23 PM EAR SPECIALIST): Statin Assessment & Plan (07/03/2022 5:08 PM EAR SPECIALIST): Statin Assessment & Plan (04/05/2022 4:32 PM EAR SPECIALIST): - Cont statin once able to tolerate PO Assessment & Plan (03/25/2022 11:54 PM EAR SPECIALIST): - Cont statin Hypertension 08/28/2021 Assessment & [...] per Assessment & Plan (04/05/2022 4:32 PM EAR SPECIALIST): - Submassive PE diagnosed in 07/2021 - CT PE negative here (in setting of apixaban noncompliance) - Lovenox Assessment & Plan (04/04/2022 3:21 PM EAR SPECIALIST): - Submassive PE diagnosed in 07/2021 - CT PE negative here (in setting of apixaban noncompliance) - Lovenox Clear cell carcinoma of kidney, 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 Mccauley. Dx 2018. S/p ablation and radical nephrectomy. Completed 5 cycles of pembrolizumab 3-12/2021. Hx of immunotherapy neurotoxicity and prior treated with course of steroids and IVIG (12/2021, 03/2022) Assessment & Plan (07/04/2022 4:23 PM EAR SPECIALIST): Follows with Dr. Mccauley. Bee 2018. S/p ablation and radical nephrectomy. Completed 5 cycles of pembrolizumab . 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 Mccauley. Bee 2017. S/p ablation and radical nephrectomy. Completed 5 cycles of pembrolizumab . 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 Mccauley. Bee 2018. S/p ablation and radical nephrectomy. Completed 5 cycles of pembrolizumab . 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 - Continues on IVIG and solumedrol per oncology Assessment & Plan (04/04/2022 3:20 PM EAR SPECIALIST): Follows with Dr. Mccauley. Bee 2018. S/p ablation and radical nephrectomy. Completed 5 cycles of pembrolizumab . 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 - Continues on IVIG and solumedrol per oncology Chronic left shoulder pain 02/18/2016 Acute renal failure superimposed on chronic kidn ey disease Assessment & Plan (07/05/2022 8:12 PM EAR SPECIALIST): Cr 1.8 (baseline 1) - euvolemic on exam without recent GI losses or poor PO intake - IVF were hold - Initially aldactone, entresto and lasix were hold. - Cr improve to 1.37. - Restarted entresto and lower dose of lasix (from 40 mg daily to 20 mg daily) Assessment & Plan (07/04/2022 4:25 PM EAR SPECIALIST): Cr 1.8 (baseline 1) - euvolemic on exam without recent GI losses or poor PO intake - Cr improve to 1.47. - would not give fluids - Hold aldactone, entresto and lasix Assessment & Plan (07/03/2022 5:08 PM EAR SPECIALIST): Cr 1.8 (baseline 1) - euvolemic on exam without recent GI losses or poor PO intake - improving without intervention - would not give fluids - Hold aldactone, entresto and lasix Assessment & Plan (04/05/2022 4:30 PM EAR SPECIALIST): - Presenting with Cr 1.81 up from baseline ~1.3 in setting of decreased PO intake, now resolved with supportive care - Avoid nephrotoxins, renal-dose meds Assessment & Plan (04/04/2022 3:18 PM EAR SPECIALIST): - Presenting with Cr 1.81 up from baseline ~1.3 in setting of decreased PO intake, now resolved with supportive care - Avoid nephrotoxins, renal-dose meds Drug reaction Neurotoxicity Assessment & Plan (07/05/2022 7:58 PM EAR SPECIALIST): 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, high dose steroids, now on pred 10 daily - On the ED receive hydrocortisone 59 ng x 3 - Steroid as mention - should not need PJP ppx on this dose - start PPI ppx Assessment & Plan (07/04/2022 4:19 PM EAR SPECIALIST): 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, high dose steroids, now on pred 10 daily - On the ED receive hydrocortisone 59 ng x 3 - Steroid as mention - should not need PJP ppx on this dose - start PPI ppx Assessment & Plan (07/03/2022 4:51 PM EAR SPECIALIST): 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 Other Current Plans Cortrosyn Stimulation test - high dose (250 MCG)* Plan Start Date:09/15/2022 Plan Provider:Marina Clark NP Linked Problems Decreased cortisol level Treatment Medications No medications scheduled. Cortrosyn Stimulation test - high dose (250 MCG)* Plan Start Date:09/15/2022 Plan Provider:Marina Clark NP Linked Problems Decreased cortisol level Treatment Medications No medications scheduled. Past Treatment and Therapy Plans Oncology Chemotherapy Treatment Plan Name Start Date Discontinue Date Treatment Medications Discontinue Reason Plan Provider Cycles Pembrolizumab 21 Day Cycles 2 07/07/2022 pembrolizumab (KEYTRUDA)pembr olizumab (KEYTRUDA) IVPB in 100 mL Toxicity/Comp lication Mykel Mccauley DO 5 of 24 cycles started Lifetime Dose Tracking * Chemical Lifetime Dose Automatic Entry Manual Entr y Fluoro Time 237.493 minutes 9.893 minutes 227.6 minut es Air kerma at the reference point (Ka,r) 16,653.68 mGy 91.68 mGy 16,562 mGy DLP 7,741 mGycm 7,741 mGycm 0 mGycm DAP 1,071 Gy-cm2 0 Gy-cm2 1,071 Gy-cm2 Resolved Problems Problem Noted Date Diagnosed Date [...] 10/13/2022 Assessment & Plan (07/05/2022 8:06 PM EAR SPECIALIST): SBP has been on the low 100s [...] started. Assessment & Plan (07/04/2022 4:23 PM EAR SPECIALIST): SBP has been on the low 100s [...] lasix Assessment & Plan (07/03/2022 5:03 PM EAR SPECIALIST): SBP has been on the low 100s [...] 12/26/2024 Assessment & Plan (07/05/2022 7:54 PM EAR SPECIALIST): home metal #5 - does not use trach collar Assessment & Plan (07/04/2022 4:17 PM EAR SPECIALIST): home metal #5 - does not use trach collar Assessment & Plan (07/02/2022 10:20 PM EAR SPECIALIST): home metal #5 - does not use trach collar Shortness of breath 07/01/2022 10/14/19 23 Assessment & Plan (07/05/2022 8:13 PM EAR SPECIALIST): PHx of HFrEF (EF 20%), PE on [...] No wheezing on exam. Stress test at [facility] 2018 (media) indeterminate. May have had ischemic eval afterwards but records not available. Cardiac MRI 06/2022 w/ Dilated cardiomyopathy with markedly reduced right and left ventricular ejection fraction. No evidence of myocarditis Plan: - empiric coverage for PNM: CTX, azithro for 3 days - BCx NGTD - Resolve SOB Assessment & Plan (07/04/2022 4:19 PM EAR SPECIALIST): PHx of HFrEF (EF 20%), PE on [...] No wheezing on exam. Stress test at [facility] 2019 (media) indeterminate. May have had ischemic [...] 09/09/2022) Assessment & Plan (07/03/2022 4:48 PM EAR SPECIALIST): PHx of HFrEF (EF 20%), PE on [...] No wheezing on exam. Stress test at [facility] 2018 (media) indeterminate. May have had ischemic [...] (06/03/2022): Added automatically from request for surgery [id number] Severe malnutrition 03/26/2022 11/21/19 24 Assessment & Plan (04/05/2022 4:32 PM EAR SPECIALIST): RD following, continue TF - PAYROLL BOOKKEEPER to follow for continued swallow eval given risk of aspiration Assessment & Plan (04/04/2022 3:21 PM EAR SPECIALIST): RD following, continue TF - PAYROLL BOOKKEEPER to follow for continued swallow eval given risk of aspiration Hypercalcemia 03/25/2022 03/26/2022 Assessment & Plan (03/25/2022 11:54 PM EAR SPECIALIST): - Presume secondary to dehydration - monitor s/p IVF SIRS (systemic inflammatory response syndrome) 03/25/2022 12/07/2024 Shortness of breath 03/09/2022 03/25/20 22 Assessment & Plan (03/25/2022 11:55 PM EAR SPECIALIST): - Hypotension 12/14/2021 10/13/2022 Cor pulmonale, acute 08/20/2021 024 Postural dizziness with presyncope 08/08/2021 10/07/2021 Stage 3a chronic kidney disease 08/08/2021 10/07/2021 Tachycardia 08/08/2021 10/07/2021 Adenomatous polyp of colon 03/21/2018 0 10/13/2022 Right kidney mass 03/15/2018 10/07/2021 Impingement syndrome of left shoulder 03/22/2013 10/07/2021 Prediabetes 06/15/2011 10/07/2021
--- OUTSIDE RECORDS SUMMARY | 2025-02-18 13:24 | XMS_ITS | Encounter Summary ---
Author Organization [facility] Address [address] [place] [address] Phone Care Team Providers Care Strap Machine Operator Automatic Name Role Phone Mykel Mccauley DO Unavailable Yaya Elizondo MD Primary Care Provider Micheal Cabral MD Unavailable [phone] Yyaa Elizondo MD Primary Care Provider Jeferson Elena MD Primary Care Provider Artie Henderson MD Unavailable Ana M Renteria MD Unavailable [phone] Shiva Barrientos MD Unavailable Aileen Griffin NP Unavailable Parth Dalton MD Unavailable Encounter Details Date Type Department Care Team (Late st Contact Info) Description 03/08/2022 Documentation [facility] Medicine [facility]8 [facility] [address] [place] [phone] Mykel Mccauley DO [address] [facility] [address] [place] [address] [id number] Social History Tobacco Use Types Packs/Day Years Used Date Smoking Tobacco: Former Cigarettes 1 40 1 962 - 2002 Smokeless Tobacco: Never Social Connection and Isolation Panel Answer Date Recorded In a typical week, how many times do you talk on the phone with family, friends, or neighbors? Three times a week 12/23/2021 How often do you get togethe r with friends or relatives? Twice a week 12/23/2021 How often do you attend chur ch or anabaptist services? Never 12/23/2021 Do you belong to any clubs o r organizations such as holiness groups, unions, fraternal or athletic groups, or school groups? No 12/23/2021 How often do you attend meet ings of the clubs or organizations you belong to? Never 12/23/2021 Are you , , di vorced, , never , or living with a partner? 12/23/2021 AUDIT-C Answer Date Recorded Q1: How often do you have a drink containing alcohol? 4 or more times a week 03/09/2022 Q2: How many drinks containi ng alcohol do you have on a typical day when you are drinking? 1 or 2 2 Q3: How often do you have si x or more drinks on one occasion? Never 03/09/2022 Overall Financial Resource Strain (CARDIA) Answe r Date Recorded How hard is it for you to pa y for the very basics like food, housing, medical care, and heating? Not hard at all 12/23/2021 Hunger Vital Sign Answer Date Recorded Within the past 12 months, y ou worried that your food would run out before you got the money to buy more. Never true 12/24/19 22 Within the past 12 months, t he food you bought just didn't last and you didn't have money to get more. Never true 12/23/2021 PRAPARE - Transportation Answer Date Re corded In the past 12 months, has l ack of transportation kept you from medical appointments or from getting medications? No 12/14 In the past 12 months, has l ack of transportation kept you from meetings, work, or from getting things needed for daily living? No 12/23/2021 Housing Stability Vital Sign Answer Clinton e Recorded In the last 12 months, was t here a time when you were not able to pay the mortgage or rent on time? No 12/23/2021 Number of Places Lived in the Last Year Not on f ile 12/23/2021 In the last 12 months, was t here a time when you did not have a steady place to sleep or slept in a long term (including now)? 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 4 or more times a week 03/09/2022 11:43 PM Cate Bernard RN Q2: How many drinks containing alcohol do you have on a typical day when you are drinking? 1 or 2 03/09/2022 11:43 PM Cate Bernard RN Q3: How often do you have six or more drinks on one occasion? Never 03/09/2022 11:43 PM Cate Bernard RN documented as of this encounter Plan of Treatment Not on file documented as of this encounter Visit Diagnoses Diagnosis Dyspnea and respiratory abnormalities- Primary documented in this encounter Additional Health Concerns Infection Onset Date Last Indicated Resolved Time COVID: Suspected 03/09/2022 03/09/2022 03/09/2022 3:26 PM CDT COVID19 03/09/2022 03/09/2022 03/23/2022 3:05 AM OILING MACHINE OPERATOR COVID: Recovered Comment:Added based on recent COVID infection. 03/23/2022 03/23/2022 06/21/2022 3:[address] COVID: Suspected 07/01/2022 07/01/2022 07/01/2022 5:41 PM OILING MACHINE OPERATOR COVID: Suspected 07/03/2022 07/03/2022 07/03/2022 1:37 PM OILING MACHINE OPERATOR COVID: Suspected 07/10/2024 07/10/2024 07/10/2024 2:32 PM OILING MACHINE OPERATOR Ring Surveillance: C. auris Comment:This flag is [...] documented as of this encounter Care Teams Strap Machine Operator Automatic Relationship Specialty Start Date End Date Yaya Elizondo MD 1418 [facility], [address] [address] PCP - General Family Medicine 10/07/21 01/23/23 Yaya Elizondo MD [address] [facility] [address] PCP - General Family Medicine 01/24/23 02/16/23 Jeferson Elena MD [address] [address] PCP - General Family Medicine 02/17/23 Mykel Mccauley DO 14[address] [facility], [address] [address] Medical Oncologist/Hematologis t Hematology and Oncology 08/28/21 Micheal Cabral MD [address] [facility] [address] [facility] [place] [address] Consulting Physician General Surgery 08/11/22 Artie Henderson MD [address] [facility] [address] [place] [address] Referring Physician Cardiology 02/17/23 Ana M Renteria MD [address] [facility] [address] [place] [address] Referring Physician Cardiology 11/21/23 [place] [address] [address] Consulting Physician Endocrinology Diabetes & Metabolism 11/21/23 [place] [id number] [address] Nurse Practitioner Endocrinology Diabetes & Metabolism 11/21/23 Parth Dalton MD [id number] [place] [address] Surgeon Cardiothoracic Surgery 12/07/24 documented as of this encounter
[2025-02-18 14:15] VITALS: BP 115/75; PULSE 99; RESP 22
--- OUTSIDE RECORDS SUMMARY | 2025-02-18 14:24 | XMS_ITS | Encounter Summary ---
Author Organization [facility] Healthcare Address [address] [place] [address] Care Team Providers Care Construction Consultant Name Role Phone Mykel Mccauley DO Unavailable Yaya Elizondo MD Primary Care Provider [phone] Micheal Cabral MD Unavailable [phone] Yaya Elizondo MD Primary Care Provider Jeferson Elena MD Primary Care Provider Artie Henderson MD Unavailable Ana M Renteria MD Unavailable [phone] Shiva Barrientos MD Unavailable Aileen Griffin NP Unavailable Parth Datlon MD Unavailable [phone] Encounter Details Date Type Department Care Team (Late st Contact Info) Description 04/05/[address] [facility] Social Work [address] [place] [address] Alivia Pham MSW Social History Tobacco Use [...] often do you attend chur ch or restorationist services? Never 03/30/2022 Do you belong to any clubs o r organizations such as restorationist groups, unions, fraternal or athletic groups, or [...] place to sleep or slept in a senior care (including now)? 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 SW notified. Problem: Ensure acute medical needs are met and that patient has a safe discharge plan. Goal: Secure a facility that patient/family are agreeable with and ensure patient has continuum of care. Discharge Plan: [address] S[address] SW was following for SDOH. Patient screened by [facility] for Medicaid application assistance. Discharge status TBD. FARRUKH [place] INSURANCE ADMINISTRATOR documented in this encounter Plan of Treatment Not on file documented as of this encounter Visit Diagnoses Not on filedocumented in this encounter Additional Health Concerns Infection Onset Date Last Indicated Resolved Time COVID: Recovered Comment:Added based on recent COVID infection. 03/23/2022 03/23/2022 06/21/2022 3:[address] COVID: Suspected 07/01/2022 07/01/2022 07/01/2022 5:41 PM SOCIAL INSURANCE ADMINISTRATOR COVID: Suspected 07/03/2022 07/03/2022 07/03/2022 1:37 PM SOCIAL INSURANCE ADMINISTRATOR COVID: Suspected 07/10/2024 07/10/2024 07/10/2024 2:32 PM SOCIAL INSURANCE ADMINISTRATOR Ring Surveillance: Krish dumont Comment:This flag is [...] documented as of this encounter Care Teams Construction Consultant Relationship Specialty Start Date End Date Yaya Elizondo MD 1418 [facility] MEDICAL ONCOLOGY, [address] [address] PCP - General Family Medicine 10/07/21 01/23/23 Yaya Elizondo MD [address] [place] [place] [address] PCP - General Family Medicine 01/24/23 02/16/23 Jeferson Elena MD [address] [facility] [address] [place] [address] PCP - General Family Medicine 02/17/23 Mykel Mccauley DO 1418 [facility] MEDICAL ONCOLOGY, [address] [address] Medical Oncologist/Hematologis t Hematology and Oncology 08/28/21 Micheal Cabral MD [address] [place] [address] Consulting Physician General Surgery 08/11/22 Artie Henderson MD [address] [facility] [address] [place] [address] Referring Physician Cardiology 02/17/23 Ana M Renteria MD [address] [facility] [address] [place] [address] Referring Physician Cardiology 11/21/23 [place] [address] [facility] [address], [place] [address] Consulting Physician Endocrinology Diabetes & Metabolism 11/21/23 [place] [address] [facility] [address], [place] [address] Nurse Practitioner Endocrinology Diabetes & Metabolism 11/21/23 Parth Dalton MD [address] [place] [address] Surgeon Cardiothoracic Surgery 12/07/24 documented as of this encounter
--- OUTSIDE RECORDS SUMMARY | 2025-02-18 14:24 | XMS_ITS | Encounter Summary ---
Author Organization [facility] Healthcare Address [address] [place] [address] Care Team Providers Care Exhaust And Muffler Repairer Name Role Phone Mykel Mccauley DO Unavailable [phone] Micheal Cabral MD Unavailable [phone] Jeferson Elena MD Primary Care Provider [phone] Artie Henderson MD Unavailable Ana M Renteria MD Unavailable Shiva Barrientos MD Unavailable Aileen Griffin NP Unavailable Parth Dalton MD Unavailable [phone] Reason for Visit * Reason Onset Date Comments Medical Question/Miscellaneous 01/31/2025 Encounter Details Date Type Department Care Team (Late st Contact Info) Description 01/31/2025 Telephone [facility] Medical Group Primary Care at [place] [address] [place] [address] Jeferson Elena MD [address] [place] [address] [address] [place] [address] Medical Question/Miscellaneous Social History Tobacco [...] often do you attend chur ch or adventism services? Never 08/24/2022 Do you belong to any clubs o r organizations such as judaism groups, unions, fraternal or athletic groups, or [...] place to sleep or slept in a intermediate (including now)? No 08/24/2022 PHQ-9 Answer Date [...] often do you attend chur ch or adventism services? Never 01/06/2025 Do you belong to any clubs o r organizations such as judaism groups, unions, fraternal or athletic groups, or [...] any time in the past 12 m [facility], were you homeless or living in a intermediate (including now)? 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 Does message need to be routed? Yes-FYI Only documented in this encounter Plan of Treatment Not on file documented as of this encounter Visit Diagnoses Not on filedocumented in this encounter Care Teams Exhaust And Muffler Repairer Relationship Specialty Start Date End Date Jeferson Elena MD [address] [facility] [address] [place] [address] PCP - General Family Medicine 02/17/23 Mykel Mccauley DO [facility]8 [facility] MEDICAL ONCOLOGY, [facility] [address] [place] [address] Medical Oncologist/Hematologis t Hematology and Oncology 08/28/21 Micheal Cabral MD 4921 [facility] [address] [place] [address] Consulting Physician General Surgery 08/11/22 Artie Henderson MD [address] [facility] [address] [place], [place] [address] Referring Physician Cardiology 02/17/23 Ana M Renteria MD [address] [facility] [address] [place], [place] [address] Referring Physician Cardiology 11/21/23 [place] [address] [facility] [address], [place] [address] Consulting Physician Endocrinology Diabetes & Metabolism 11/21/23 [place] [address] [address] Nurse Practitioner Endocrinology Diabetes & Metabolism 11/21/23 Parth Dalton MD [address] [place] [address] Surgeon Cardiothoracic Surgery 12/07/24 documented as of this encounter
--- OUTSIDE RECORDS SUMMARY | 2025-02-18 14:24 | XMS_ITS | Encounter Summary ---
Author Organization [facility] Healthcare Address [address] [place] [address] Care Team Providers Care Table And Desk Finisher Name Role Phone Mykel Mccauley DO Unavailable Micheal Cabral MD Unavailable [phone] Jeferson Elena MD Primary Care Provider [phone] Artie Henderson MD Unavailable Ana M Renteria MD Unavailable [phone] Shiva Barrientos MD Unavailable Aileen Griffin NP Unavailable Parth Dalton MD Unavailable Reason for Visit * Reason Onset Date Comments TRAE Questions 02/06/2025 Encounter Details Date Type Department Care Team (Late st Contact Info) Description 02/06/2025 Telephone [facility] Medical Group Primary Care at [address] [address] Jeferson Elena MD [address] [place] [address] [address] [place] [address] TRAE Questions Social History Tobacco [...] often do you attend chur ch or judaism services? Never 08/24/2022 Do you belong to any clubs o r organizations such as gnosticist groups, unions, fraternal or athletic groups, or [...] place to sleep or slept in a retirement (including now)? No 08/24/2022 PHQ-9 Answer Date [...] often do you attend chur ch or judaism services? Never 01/06/2025 Do you belong to any clubs o r organizations such as gnosticist groups, unions, fraternal or athletic groups, or [...] any time in the past 12 m [facility], were you homeless or living in a retirement (including now)? No 01/06/2025 [facility] Utilities Answer Date Recorded In the past 12 months has th [employer], gas, oil, or water [employer] threatened to shut off services in your home? No 01/06/2025 Personal Safety Answer Date Recorded Have you ever been in or are you currently in a harmful physical or emotional relationship or is someone making you feel afraid or unsafe? 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 Not on file Not [...] 2:46 PM CDT TRAE Questions (Message from [facility]-Calender Inspector): Has patient been discharged at time of [...] on filedocumented in this encounter Care Teams Table And Desk Finisher Relationship Specialty Start Date End Date Jeferson Elena MD [address] [facility] [address] [place] [address] PCP - General Family Medicine 02/17/23 Mykel Mccauley DO 1418 [facility] MEDICAL ONCOLOGY, [address] [place] [address] Medical Oncologist/Hematologis t Hematology and Oncology 08/28/21 Micheal Cabral MD 4921 [facility] [address] [place] [address] Consulting Physician General Surgery 08/11/22 Artie Henderson MD 2121 [facility] [address] [place] [address] Referring Physician Cardiology 02/17/23 Ana M Renteria MD 2121 [facility] [address] [place] [address] Referring Physician Cardiology 11/21/23 [place] [address] [facility] [address], [place] [address] Consulting Physician Endocrinology Diabetes & Metabolism 11/21/23 [place] [address] [facility] [address], [place] [address] Nurse Practitioner Endocrinology Diabetes & Metabolism 11/21/23 Parth Dalton MD [address] [place] [address] Surgeon Cardiothoracic Surgery 12/07/24 documented as of this encounter
--- OUTSIDE RECORDS SUMMARY | 2025-02-18 14:24 | XMS_ITS | Encounter Summary ---
Author Organization [facility] Healthcare Address [address] [place] [address] Care Team Providers Care Chemical Plant Technical Director Name Role Phone Mykel Mccauley DO Unavailable Micheal Cabral MD Unavailable [phone] Jeferson Elena MD Primary Care Provider Artie Henderson MD Unavailable Ana M Renteria MD Unavailable [phone] Shiva Barrientos MD Unavailable Aileen Griffin NP Unavailable Parth Dalton MD Unavailable Reason for Visit * Reason Onset Date Comments Symptom Based Call 02/11/2025 Encounter Details Date Type Department Care Team (Late st Contact Info) Description 02/11/2025 Telephone [facility] Medical Group Primary Care at [place] [address] [place] [address] Jeferson Elena MD [address] [place] [address] [address] [place] [address] Symptom Based Call Social History [...] often do you attend chur ch or confucianist services? Never 08/24/2022 Do you belong to [...] place to sleep or slept in a group home (including now)? No 08/24/2022 PHQ-9 Answer Date [...] often do you attend chur ch or confucianist services? Never 01/06/2025 Do you belong to [...] any time in the past 12 m [facility], were you homeless or living in a group home (including now)? 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 [place] [address] [place] [address] PCP - General Family Medicine 02/17/23 Mykel Mccauley DO [address] [place] [address] MEDICAL ONCOLOGY, [facility] [address] [place] [address] Medical Oncologist/Hematologis t Hematology and Oncology 08/28/21 Micheal Cabral MD [address] [facility] [address] [place] [address] Consulting Physician General Surgery 08/11/22 Artie Henderson MD [address] [place] [address] Referring Physician Cardiology 02/17/23 Ana M Renteria MD [address] [place] [address] Referring Physician Cardiology 11/21/23 [place] [address] [facility] [address] [place] [address] Consulting Physician Endocrinology Diabetes & Metabolism 11/21/23 [place] [address] [facility] [address] [place] [address] Nurse Practitioner Endocrinology Diabetes & Metabolism 11/21/23 Parth Dalton MD [address] [place] [address] Surgeon Cardiothoracic Surgery 12/07/24 documented as of this encounter
--- OUTSIDE RECORDS SUMMARY | 2025-02-18 14:24 | XMS_ITS | Encounter Summary ---
Author Organization [facility] Address [address] [place] [address] Phone Care Team Providers Care Stained Glass Installer Name Role Phone Parisa, Mykel Siddiqui DO Unavailable Yaya Elizondo MD Primary Care Provider Micheal Cabral MD Unavailable [phone] Yaya Elizondo MD Primary Care Provider Jeferson Elena MD Primary Care Provider Artie Henderson MD Unavailable Ana M Renteria MD Unavailable [phone] Shiva Barrientos MD Unavailable Aileen Griffin NP Unavailable Parth Dalton MD Unavailable Encounter Details Date Type Department Care Team (Late st Contact Info) Description 07/02/2022 Telephone [facility] Medicine Cardiology [address] [facility] 8th [place] [address] [place] [address] Artie Henderson MD [address] [facility] [address] [place] [address] Social History Tobacco Use Types [...] How often do you attend chur or moravian services? Never 07/03/2022 Do you belong to [...] in a nursing home (including now)? 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 auris Comment:This flag is [...] documented as of this encounter Care Teams Stained Glass Installer Relationship Specialty Start Date End Date Yaya Elizondo MD 1418 [facility] MEDICAL ONCOLOGY, [facility] [address] [place] [address] PCP - General Family Medicine 10/07/21 01/23/23 Yaya Elizondo MD [address] [place] [address] PCP - General Family Medicine 01/24/23 02/16/23 Jeferson Elena MD [address] [place] [address] PCP - General Family Medicine 02/17/23 Mykel Mccauley DO [address] [place] [address] MEDICAL ONCOLOGY, [address] [place] [address] Medical Oncologist/Hematologis t Hematology and Oncology 08/28/21 Micheal Cabral MD 4921 [facility] [address] [place] [address] Consulting Physician General Surgery 08/11/22 Artie Henderson MD [address] [place] [address] Referring Physician Cardiology 02/17/23 Ana M Renteria MD [address] [place] [address] Referring Physician Cardiology 11/21/23 [place] [address] [address] Consulting Physician Endocrinology Diabetes & Metabolism 11/21/23 [place] [address] [address] Nurse Practitioner Endocrinology Diabetes & Metabolism 11/21/23 Parth Dalton MD [facility] [address] [place] [address] Surgeon Cardiothoracic Surgery 12/07/24 documented as of this encounter
--- OUTSIDE RECORDS SUMMARY | 2025-02-18 14:24 | XMS_ITS | Encounter Summary ---
Author Organization [facility] Address [address] [facility] [address] [place] [address] Phone Care Team Providers Care Loft Rigger Name Role Phone Mykel Mccauley DO Unavailable Micheal Cabral MD Unavailable [phone] Jeferson Elena MD Primary Care Provider Artie Henderson MD Unavailable Ana M Renteria MD Unavailable Shiva Barrientos MD Unavailable Aileen Griffin NP Unavailable Parth Dalton MD Unavailable [phone] Reason for Visit * Reason Onset Date Comments Symptom Based Call 02/13/2025 Encounter Details Date Type Department Care Team (Late st Contact Info) Description 02/13/2025 Telephone [facility] Cardiothoracic Surgery [facility] 8th Floor [address] [place] [address] Parth Dalton MD [address] [facility] [address]09-14 [place] [address] Symptom Based Call Social History [...] often do you attend chur ch or adventist services? Never 08/24/2022 Do you belong to any clubs o r organizations such as worship groups, unions, fraternal or athletic groups, or [...] often do you attend chur ch or adventist services? Never 01/06/2025 Do you belong to any clubs o r organizations such as worship groups, unions, fraternal or athletic groups, or [...] any time in the past 12 m [facility], were you homeless or living in a group home (including now)? No 01/06/[address] [facility] Utilities Answer Date Recorded In the past 12 months has th e [employer], gas, oil, or water [employer] threatened to shut off services in your home? No 01/06/2025 Personal Safety Answer Date Recorded Have you ever been in or are you currently in a harmful physical or emotional relationship or is someone making you feel afraid or unsafe? 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 Shestates she [...] on filedocumented in this encounter Care Teams Loft Rigger Relationship Specialty Start Date End Date Jeferson Elena MD [address] [facility] 130 [place] [address] PCP - General Family Medicine 02/17/23 Mykel Mccauley DO [address] [place] [address] MEDICAL ONCOLOGY, [facility] [address] [place] [address] Medical Oncologist/Hematologis t Hematology and Oncology 08/28/21 Micheal Cabral MD 4921 [facility] [address] [place] [address] Consulting Physician General Surgery 08/11/22 Artie Henderson MD [address] [facility] [address] [place] [address] Referring Physician Cardiology 02/17/23 Ana M Renteria MD [address] [facility] [address] [place] [address] Referring Physician Cardiology 11/21/23 [place] [address] [facility] [address] [place] [address] Consulting Physician Endocrinology Diabetes & Metabolism 11/21/23 [place] [address] [facility] [address] [place] [address] Nurse Practitioner Endocrinology Diabetes & Metabolism 11/21/23 Parth Dalton MD [address] [place] [address] Surgeon Cardiothoracic Surgery 12/07/24 documented as of this encounter
--- OUTSIDE RECORDS SUMMARY | 2025-02-18 14:26 | XMS_ITS | Clinical Summary ---
Author Organization [facility] Address [address] [place] [address] Care Team Providers Care Wall Taper Name Role Phone Mykel Mccauley DO Unavailable Micheal Cabral MD Unavailable [phone] Jeferson Elena MD Primary Care Provider Artie Henderson MD Unavailable Ana M Renteria MD Unavailable [phone] Shiva Barrientos MD Unavailable Aileen Griffin NP Unavailable Parth Dalton MD Unavailable [phone] Allergies Active Allergy Reactions Criticality Noted [...] Assessment & Plan (01/19/2025 8:49 AM CDT): GAS CUTTER saw patient on 01/09 at bedside 01/10 [...] revealed mild tracheomalacia - 01/17 transition to [facility] - ENT to sign off - Follow [...] CI 2.5 w chest closed -ASA/statin/zetia/spirolactone daily -NEONATAL CRITICAL CARE NURSE - 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 Normal [...] 03/19/2024 Assessment & Plan (03/19/2024 11:05 AM CREDIT AND COLLECTIONS ANALYST): Patient is interested in the steroid injections. 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 Referral to ortho hand in [place]. I told him alternatively there would be Dr. Du at [facility]. Encounter for Medicare annual wellness exam 12/2023 [...] daily Assessment & Plan (07/13/2024 10:40 AM CREDIT AND COLLECTIONS ANALYST): Chronic problem. 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 In [...] room. Assessment & Plan (07/05/2023 2:53 PM CREDIT AND COLLECTIONS ANALYST): Chronic problem. 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 In case of any extreme weakness, abdominal pain, diarrhea or dizziness, it is recommended for you to call an ambulance and proceed to the nearest emergency room. Assessment & Plan (05/19/2023 12:49 PM CREDIT AND COLLECTIONS ANALYST): Patient continuing his Prednisone and set to follow up with Endo in June. Assessment & Plan (11/18/2022 3:01 PM CDT): Chronic problem. Discussed tapering prednisone dose from 15mg total/day down to 5mg daily. Reserving 10-15mg for sick days. Will call if any difficulties with tapering. Reviewed red flags. Will check TSH, T3, T4 today. Verified that he uses [facility]. Aware to check results/results letter in [place]. Will contact by phone if needed. 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 In [...] 07/04/2022 Assessment & Plan (07/05/2022 7:58 PM CREDIT AND COLLECTIONS ANALYST): On 12/2021 started high dose steroid due [...] tapering. Assessment & Plan (07/04/2022 4:17 PM CREDIT AND COLLECTIONS ANALYST): On 12/2021 started high dose steroid due [...] Cardiology Assessment & Plan (05/19/2023 12:42 PM CREDIT AND COLLECTIONS ANALYST): Patient continues to follow with Cardiology. Continues [...] changes. Assessment & Plan (07/05/2022 8:13 PM CREDIT AND COLLECTIONS ANALYST): TTE 03/2022 with LV dilation with EF [...] 09/09/2022) Assessment & Plan (07/04/2022 4:23 PM CREDIT AND COLLECTIONS ANALYST): TTE 03/2022 with LV dilation with EF [...] cost Assessment & Plan (07/03/2022 5:05 PM CREDIT AND COLLECTIONS ANALYST): TTE 03/2022 with LV dilation with EF [...] cost Assessment & Plan (04/05/2022 4:32 PM CREDIT AND COLLECTIONS ANALYST): Heart Failure with Reduced Ejection Fraction: EF [...] currently Assessment & Plan (04/04/2022 3:23 PM CREDIT AND COLLECTIONS ANALYST): Heart Failure with Reduced Ejection Fraction: EF 25% (TTE 03/2022), profile A, NYHA II, - Diuretic: None currently - Beta Jihan: Metoprolol tartrate 37.5 mg BID, will consolidate to XL prior to D/C - BRENTON/ARB/ARNI: On Entresto at home, will resume as tolerated - Device: No device currently Failure to thrive in adult 03/25/2022 Assessment & Plan (04/05/2022 4:31 PM CREDIT AND COLLECTIONS ANALYST): - Patient presenting with decreased PO intake, noncompliance medications, reported wt loss - RD consult, currently on TF via DHT - Swallow evaluation to remove DHT and begin oral nutrition Assessment & Plan (04/04/2022 3:20 PM CREDIT AND COLLECTIONS ANALYST): - Patient presenting with decreased PO intake, noncompliance medications, reported wt loss - RD consult, currently on TF via DHT Falls 03/25/2022 Assessment & Plan (04/05/2022 4:31 PM CREDIT AND COLLECTIONS ANALYST): - Patient lives alone with reportedly intermittent falls at home; last prior to admission without reported head trauma - Head CT unremarkable - Fall precautions, empiric coverage for Wernicke per above Assessment & Plan (04/04/2022 3:20 PM CREDIT AND COLLECTIONS ANALYST): - Patient lives alone with reportedly intermittent falls at home; last prior to admission without reported head trauma - Head CT unremarkable - Fall precautions, empiric coverage for Wernicke per above - PT/OT High risk medication use 03/25/2022 Atrial fibrillation 12/01/2021 Overview (12/01/2021): Added automatically from request for surgery [id number] Assessment & Plan (01/19/2025 8:45 AM CDT): [...] 01/19 Assessment & Plan (07/05/2022 8:09 PM CREDIT AND COLLECTIONS ANALYST): EKG on admission w/ AFL - eliquis - metop Assessment & Plan (07/04/2022 4:24 PM CREDIT AND COLLECTIONS ANALYST): EKG on admission w/ AFL - eliquis - metop Assessment & Plan (07/02/2022 9:24 PM CREDIT AND COLLECTIONS ANALYST): EKG on admission w/ AFL - eliquis - metop Assessment & Plan (04/05/2022 4:30 PM CREDIT AND COLLECTIONS ANALYST): Presenting with Afib with HR currently at goal < 110, episode of hypotension 03/29 with RVR requiring ICU transfer - On metoprolol tartrate 37.5 mg BID, rate controlled - Continue telemetry for now (currently rate controlled) - Theraputic lovenox Assessment & Plan (04/04/2022 3:18 PM CREDIT AND COLLECTIONS ANALYST): Presenting with Afib with HR currently at [...] function Assessment & Plan (03/28/2022 2:53 PM CREDIT AND COLLECTIONS ANALYST): - Recent TTE 2wks ago with EF [...] daily. Assessment & Plan (07/05/2022 8:06 PM CREDIT AND COLLECTIONS ANALYST): Statin Assessment & Plan (07/04/2022 4:23 PM CREDIT AND COLLECTIONS ANALYST): Statin Assessment & Plan (07/03/2022 5:08 PM CREDIT AND COLLECTIONS ANALYST): Statin Assessment & Plan (04/05/2022 4:32 PM CREDIT AND COLLECTIONS ANALYST): - Cont statin once able to tolerate PO Assessment & Plan (03/25/2022 11:54 PM CREDIT AND COLLECTIONS ANALYST): - Cont statin Hypertension 08/28/2021 Assessment & [...] per Assessment & Plan (04/05/2022 4:32 PM CREDIT AND COLLECTIONS ANALYST): - Submassive PE diagnosed in 07/2021 - CT PE negative here (in setting of apixaban noncompliance) - Lovenox Assessment & Plan (04/04/2022 3:21 PM CREDIT AND COLLECTIONS ANALYST): - Submassive PE diagnosed in 07/2021 - CT PE negative here (in setting of apixaban noncompliance) - Lovenox Clear cell carcinoma of kidney, 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 Mccauley. Dx 2018. S/p ablation and radical nephrectomy. Completed 5 cycles of pembrolizumab 3-12/2021. Hx of immunotherapy neurotoxicity and prior treated with course of steroids and IVIG (12/2021, 03/2022) Assessment & Plan (07/04/2022 4:23 PM CREDIT AND COLLECTIONS ANALYST): Follows with Dr. Mccauley. Bee 2018. S/p ablation and radical nephrectomy. Completed 5 cycles of pembrolizumab . 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 Mccauley. Bee 2018. S/p ablation and radical nephrectomy. Completed 5 cycles of pembrolizumab . 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 Mccauley. Bee 2018. S/p ablation and radical nephrectomy. Completed 5 cycles of pembrolizumab . 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 - Continues on IVIG and solumedrol per oncology Assessment & Plan (04/04/2022 3:20 PM CREDIT AND COLLECTIONS ANALYST): Follows with Dr. Mccauley. Bee 2017. S/p ablation and radical nephrectomy. Completed 5 cycles of pembrolizumab . 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 - Continues on IVIG and solumedrol per oncology Chronic left shoulder pain 02/18/2016 Acute renal failure superimposed on chronic kidn ey disease Assessment & Plan (07/05/2022 8:12 PM CREDIT AND COLLECTIONS ANALYST): Cr 1.8 (baseline 1) - euvolemic on exam without recent GI losses or poor PO intake - IVF were hold - Initially aldactone, entresto and lasix were hold. - Cr improve to 1.37. - Restarted entresto and lower dose of lasix (from 40 mg daily to 20 mg daily) Assessment & Plan (07/04/2022 4:25 PM CREDIT AND COLLECTIONS ANALYST): Cr 1.8 (baseline 1) - euvolemic on exam without recent GI losses or poor PO intake - Cr improve to 1.47. - would not give fluids - Hold aldactone, entresto and lasix Assessment & Plan (07/03/2022 5:08 PM CREDIT AND COLLECTIONS ANALYST): Cr 1.8 (baseline 1) - euvolemic on exam without recent GI losses or poor PO intake - improving without intervention - would not give fluids - Hold aldactone, entresto and lasix Assessment & Plan (04/05/2022 4:30 PM CREDIT AND COLLECTIONS ANALYST): - Presenting with Cr 1.81 up from baseline ~1.3 in setting of decreased PO intake, now resolved with supportive care - Avoid nephrotoxins, renal-dose meds Assessment & Plan (04/04/2022 3:18 PM CREDIT AND COLLECTIONS ANALYST): - Presenting with Cr 1.81 up from baseline ~1.3 in setting of decreased PO intake, now resolved with supportive care - Avoid nephrotoxins, renal-dose meds Drug reaction Neurotoxicity Assessment & Plan (07/05/2022 7:58 PM CREDIT AND COLLECTIONS ANALYST): 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, high dose steroids, now on pred 10 daily - On the ED receive hydrocortisone 59 ng x 3 - Steroid as mention - should not need PJP ppx on this dose - start PPI ppx Assessment & Plan (07/04/2022 4:19 PM CREDIT AND COLLECTIONS ANALYST): 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, high dose steroids, now on pred 10 daily - On the ED receive hydrocortisone 59 ng x 3 - Steroid as mention - should not need PJP ppx on this dose - start PPI ppx Assessment & Plan (07/03/2022 4:51 PM CREDIT AND COLLECTIONS ANALYST): 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 Assessment & Plan (07/04/2022 4:23 PM CREDIT AND COLLECTIONS ANALYST): SBP has been on the low 100s [...] lasix Assessment & Plan (07/03/2022 5:03 PM CREDIT AND COLLECTIONS ANALYST): SBP has been on the low 100s [...] 12/26/2024 Assessment & Plan (07/05/2022 7:54 PM CREDIT AND COLLECTIONS ANALYST): home metal #5 - does not use trach collar Assessment & Plan (07/04/2022 4:17 PM CREDIT AND COLLECTIONS ANALYST): home metal #5 - does not use trach collar Assessment & Plan (07/02/2022 10:20 PM CREDIT AND COLLECTIONS ANALYST): home metal #5 - does not use trach collar Shortness of breath 07/01/2022 10/14/19 23 Assessment & Plan (07/05/2022 8:13 PM CREDIT AND COLLECTIONS ANALYST): PHx of HFrEF (EF 20%), PE on [...] on exam. Stress test at [facility] 2019 (media) indeterminate. May have had ischemic eval afterwards but records not available. Cardiac MRI 06/2022 w/ Dilated cardiomyopathy with markedly reduced right and left ventricular ejection fraction. No evidence of myocarditis Plan: - empiric coverage for PNM: CTX, azithro for 3 days - BCx NGTD - Resolve SOB Assessment & Plan (07/04/2022 4:19 PM CREDIT AND COLLECTIONS ANALYST): PHx of HFrEF (EF 20%), PE on [...] on exam. Stress test at [facility] 2019 (media) indeterminate. May have [...] 09/09/2022) Assessment & Plan (07/03/2022 4:48 PM CREDIT AND COLLECTIONS ANALYST): PHx of HFrEF (EF 20%), PE on [...] on exam. Stress test at [facility] 2018 (media) indeterminate. May have [...] (06/03/2022): Added automatically from request for surgery [id number] Severe malnutrition 03/26/2022 11/21/19 24 Assessment & Plan (04/05/2022 4:32 PM CREDIT AND COLLECTIONS ANALYST): RD following, continue TF - GAS CUTTER to follow for continued swallow eval given risk of aspiration Assessment & Plan (04/04/2022 3:21 PM CREDIT AND COLLECTIONS ANALYST): RD following, continue TF - GAS CUTTER to follow for continued swallow eval given risk of aspiration Hypercalcemia 03/25/2022 03/26/2022 Assessment & Plan (03/25/2022 11:54 PM CREDIT AND COLLECTIONS ANALYST): - Presume secondary to dehydration - monitor s/p IVF SIRS (systemic inflammatory response syndrome) 03/25/2022 12/07/2024 Shortness of breath 03/09/2022 03/25/20 22 Assessment & Plan (03/25/2022 11:55 PM CREDIT AND COLLECTIONS ANALYST): - Hypotension 12/14/2021 10/13/2022 Cor pulmonale, acute 08/20/2021 07/08/2 024 Postural dizziness with presyncope 08/08/2021 10/07/2021 Stage 3a chronic kidney disease 08/08/2021 10/07/2021 Tachycardia 08/08/2021 10/07/2021 Adenomatous polyp of colon 03/21/2018 0 10/13/2022 Right kidney mass 03/15/2018 10/07/2021 Impingement syndrome of left shoulder 03/22/2013 10/07/2021 Prediabetes 06/15/2011 10/07/2021 Encounters Date Type Department Care Team Description 02/13/2025 Telephone [facility] Cardiothoracic Surgery [address] [facility] 8th Floor [address] Room [address] [place] [phone] Parth Dalton MD Symptom Based Call 02/13/2025 Telephone [facility] Medical [facility] Primary Care at [address] [phone] Jeferson Elena MD Medical Question/Miscellaneo us 02/11/2025 Telephone [facility] Medical [facility] Primary Care at [address] [phone] Jeferson Elena MD Symptom Based Call 02/11/2025 Telephone [facility] Primary Care at [address] [phone] Jeferson Elena MD Ortho vitals 02/08/2025 10:00 AM CDT Telemedicine [facility] Medical [facility] Primary Care at [address] [phone] Cherise Butts NP History of pulmonary embolism (Primary Dx); ASCVD (arteriosclerotic cardiovascular disease); Primary hypertension; Mixed hyperlipidemia; Hospital discharge follow-up 02/08/2025 Telephone [facility] Cardiothoracic Surgery [address] [facility] 8th Floor [address] Room [address] [place] [phone] Rosi Jha NP 02/06/2025 Telephone [facility] Medical [facility] Primary Care at [address] [phone] Jeferson Elena MD TRAE Questions 02/04/2025 Orders Only [facility] Medical Group Primary Care at [address] [phone] Yana Ramirez MD 01/31/2025 Orders Only [facility] Medical Group Primary Care at [address] [phone] Yana Ramirez MD 01/31/2025 Telephone [facility] Medical Group Primary Care at [address] [phone] Jeferson Elena MD Medical Question/Miscellaneo us 01/22/[address] [facility] Medicine Physicians [facility] Oncology [address] [place] [phone] Jayshree Khan 01/18/2025 1:24 PM CDT - 01/18/2025 11:59 PM CDT Hospital Encounter [facility] Radiology [address] [place] [address] Discharge Disposition: Discharge to home or self care 01/10/2025 3:30 PM CDT - 01/10/2025 11:59 PM CDT Hospital Encounter [facility] Radiology 1 [place] [address] Discharge Disposition: Discharge to home or self care 01/02/[address] [facility] Medicine Otolaryngology [address] [place] [address] Natalie Cast MS 12/28/2024 7:55 AM CDT Ancillary Procedure [facility] Operating Room 1 [place] [address] 12/28/2024 7:00 AM CDT - 12/28/2024 3:55 PM CDT Surgery [facility] Operating Room 1 [place] [address] Parth Dalton MD CORONARY ARTERY BYPASS GRAFT WITH PUMP, ALEX CLIP WITH 45MM ATRICLIP 12/28/2024 6:56 AM CDT Anesthesia Event [facility] Operating Room 1 [place] [address] Simon Roberts MD Shah, Karina Bhavesh, MD 12/27/2024 9:10 AM CDT Ancillary Procedure [facility] Vascular Lab IP [address] [facility] [address] [place] [address] 12/27/2024 9:05 AM CDT Ancillary Procedure [facility] Vascular Lab IP [address] [facility] [address] [place] [address] 12/26/2024 4:29 PM CDT - 01/19/2025 3:44 PM CDT Hospital Encounter [facility] 1 [place] [address] Parth Dalton MD CAD, multiple vessel (Primary Dx); Encounter for adjustment and management of unspecified implanted device; Mixed hyperlipidemia; Ischemic cardiomyopathy Discharge Disposition: Discharge to SNF 12/26/2024 1:00 PM CDT Pre-Admission Testing [facility] for Preoperative Assessment and Planning [facility] [address] [place] [phone] Preoperative testing (Primary Dx) 12/24/2024 11:05 AM CDT - 12/24/2024 11:59 PM CDT Hospital Encounter [facility] Medical Office Building [address] [address] Clear cell carcinoma of kidney, right (HCC) Discharge Disposition: Discharge to home or self care 12/12/2024 Orders Only [facility] Cardiology [address] [place] [address] Advanced Medicine 8th [place] [address] [place] [address] Artie Henderson MD 12/10/2024 Results Follow-Up [facility] Medical Group Primary Care at [address] [phone] Jeferson Elena MD Lipid panel, Hepatitis B core antibody, total Blood, Hepatitis B surface antibody (immune status) Blood, Hepatitis B Surface Antigen Blood 12/07/2024 12:15 PM CDT Lab [facility] Medical Group Outpatient Lab at [address] [phone] 12/07/2024 12:05 PM CDT - 12/07/2024 11:59 PM CDT Hospital Encounter [address] [address] Mixed hyperlipidemia; Need for hepatitis B screening test Discharge Disposition: Discharge to home or self care 12/07/2024 11:30 AM CDT Office Visit [facility] Medical Group Primary Care at [address] [phone] Jeferson Elena MD Encounter for Medicare annual wellness exam (Primary Dx); Liver cell carcinoma (HCC); Type 2 diabetes mellitus with stage 3b chronic kidney disease, without long-term current use of insulin (HCC); Stage 3b chronic kidney disease (HCC); Primary hypertension; Mixed hyperlipidemia; Heart failure with reduced ejection fraction (HCC); Longstanding persistent atrial fibrillation (HCC); Need for hepatitis B screening test 12/07/2024 Telephone [facility] Physicians [facility] Oncology [address] [facility] [address] [place] [address] Marcela Chaparro CMA 12/04/2024 Telephone [facility] Cardiothoracic Surgery [address] [facility] 8th Floor [address] Room [address] [place] [phone] Parth Dalton MD 11/19/2024 11:30 AM CDT Office Visit [facility] Medical Group Pulmonary at [address] [place] [phone] Shwetha Lowe NP Tracheostomy dependent (HCC) (Primary Dx); Heart failure with reduced ejection fraction (HCC); Dyspnea on minimal exertion 11/19/2024 Orders Only [facility] Cardiology [address] [facility] Floor 1, [address] [place] [phone] Artie Henderson MD ASCVD (arteriosclerotic cardiovascular disease) (Primary Dx); Coronary artery disease involving habematolel coronary artery of habematolel heart with other form of angina pectoris [...] Right CARDIAC CATHETERIZATION 08/29/2024 N/A Procedure: PCI COMPUTER NUMERICAL CONTROL PROGRAMMER ERVIN REVASCULARIZATION - FIRST VESSEL C9607 - [id number]; Surgeon: Ana M Renteria MD; Location: [facility] CARDIAC SPEECH TEACHER; Service: Cardiovascular; Laterality: N/A; Hold on 07/24 instructed to hold eliquis 48hrs prior; PCI COMPUTER NUMERICAL CONTROL PROGRAMMER LAD Medical devices from this surgery are in the Medical Devices section. CARDIAC CATHETERIZATION 11/15/2024 N/A Procedure: PCI COMPUTER NUMERICAL CONTROL PROGRAMMER ERVIN REVASCULARIZATION - FIRST VESSEL C9607 - [id number]; Surgeon: Ana M Renteria MD; Location: [facility] CARDIAC SPEECH TEACHER; Service: Cardiovascular; Laterality: N/A; instructed to hold [...] 06/03/2022 Added automatically from request for surgery [id number] Thrombocytopenia 12/30/2024 Family History Medical History Relation [...] often do you attend chur ch or hinduism services? Never 08/24/2022 Do you belong to any clubs o r organizations such as advent groups, unions, fraternal or athletic groups, or [...] in a senior care (including now)? No 08/24/2022 PHQ-9 Answer Date [...] often do you attend chur ch or hinduism services? Never 01/06/2025 Do you belong to any clubs o r organizations such as advent groups, unions, fraternal or athletic groups, or [...] any time in the past 12 m [facility], were you homeless or living in a senior care (including now)? 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 Not on file Not on [...] history exists Medical Devices Implanted Type Area Documentum Consultant Device Identifier Shelf Expiration Date Model / Serial / Lot Atricure Device Left Atrial Appendage Malleable Shaft 180 Degree Rotation White Atriclip Flex V 45mm [id number] - S0 - [id number] Implanted:Qty: 1 on 12/28/2024 by Parth Dalton MD at [facility] Clip Left: Atrial Appendage Atricure 08/15/2027 [id number] / [id number] / [id number] [employer] Angio-Seal Vip 6fr Closere Device [id number] - [id number] - [id number] Implanted:Qty: 1 on 10/05/2023 by James Limon MD at [facility] Collagen Left: Groin [employer] 06/15/2024 [id number] / [id number] [employer] Angio-Seal Vip 6fr Closere Device [id number] - [id number] - [id number] Implanted:Qty: 1 on 10/05/2023 by James Limon MD at [facility] Collagen Right: Groin [employer] 06/15/2024 [id number] / [id number] / [id number] [employer] Angio-Seal Vip 6fr Closere Device [id number] - [id number] - [id number] Implanted:Qty: 1 on 11/23/2023 by Ana M Renteria MD at [facility] Collagen Left: Common Femoral Artery [employer] 06/06/2024 [id number] / [id number] / [id number] [employer] Angio-Seal Vip 6fr Closere Device [id number] - [id number] - [id number] Implanted:Qty: 1 on 11/23/2023 by Ana M Renteria MD at [facility] Collagen Right: Common Femoral Artery [employer] Raul 04/18/2024 [id number] / [id number] / [id number] [employer] Angio-Seal Vip 6fr Closere Device [id number] - [id number] - [id number] Implanted:Qty: 1 on 02/14/2024 by Ana M Renteria MD at [facility] Collagen [employer] 09/08/2024 [id number] / [id number] / [id number] [employer] Angio-Seal Vip 6fr Closere Device 826818 - [id number] - [id number] Implanted:Qty: 1 on 02/14/2024 by Ana M Renteria MD at [facility] Collagen [employer] 09/08/2024 [id number] / [id number] / [id number] [employer]ol Inc/C R Bard [id number] Bard [id number] Monofilament Soft Lightweight Low Profile Square - [id number] Implanted:Qty: 1 on 08/23/2022 by Micheal Cabral MD at [facility] Mesh N/A: Abdomen [employer]/C R Bard [id number] 08/10/2026 [id number] / / [id number] [employer]/C R Bard Mesh Surg 3dmax Right Mid Large Inguinal Hernia [id number] - [id number] Implanted:Qty: 1 on 08/23/2022 by Micheal Cabral MD at [facility] Mesh Right: Inguinal [employer]/C R Bard [id number] 05/12/2027 [id number] / / [employer] Raul Angio-Seal Vip 6fr Closere Device 038432 - [id number] - [id number] Implanted:Qty: 1 on 08/29/2024 by Ana M Renteria MD at [facility] Vascular Closure Device Right: Common Femoral Artery [employer] 04/02/2025 262919 / [id number] / [id number] [employer] Angio-Seal Vip 6fr Closere Device 866320 - [id number] - [id number] Implanted:Qty: 1 on 08/29/2024 by Ana M Renteria MD at [facility] Vascular Closure Device Left: Common Femoral Artery [employer] 04/02/2025 [id number] / [id number] / [id number] [employer] Angio-Seal Vip 6fr Closere Device 989614 - [id number] - [id number] Implanted:Qty: 1 on 11/15/2024 by Ana M Renteria MD at [facility] Vascular Closure Device Right: Femoral [employer] 05/29/2025 247659 / [id number] / [id number] [employer] Angio-Seal Vip 6fr Closere Device 300867 - [id number] - [id number] Implanted:Qty: 1 on 11/15/2024 by Ana M Renteria MD at [facility] Vascular Closure Device Left: Femoral [employer] 05/29/2025 [id number] / [id number] / [id number] Lsi [employer] Suture [place] Cor Knot Pre Loaded Fastener Device Micro Titanium 0 05617 - [id number] Implanted:Qty: 2 on 12/28/2024 by Parth Dalton MD at [facility] [employer] [id number] 01/13/2027 [id number] / / [id number] [employer] Device Closure Fibertape Sternal Cerclage Blunt Needle Ar-7289 - [id number] Implanted:Qty: 3 on 12/28/2024 by Parth Dalton MD at [facility] [employer] Inc [id number] 11/12/2029 AR-7289 / / [id number] [employer] Plate Bone Low Profile 6 Hole H Shape Sternum Ti 115.102.06 - [id number] Implanted:Qty: 2 on 12/28/2024 by Parth Dalton MD at [facility] [employer] 115.102. 06 / / [employer] Screw Bone Slf Drl Full Thread Locking 3.5x16mm Ti 100.035.16 - [id number] Implanted:Qty: 10 on 12/28/2024 by Parth Dalton MD at [facility] [employer] 100.035. 16 / / [employer] Screw Bone Slf Drl Full Thread Locking 3.5x18mm Ti 100.035.18 - [id number] Implanted:Qty: 8 on 12/28/2024 by Parth Dalton MD at [facility] Sternum [employer] 100.035. 18 / / [employer] Plate Bone Low Profile 6 Hole O Shape Sternum Ti 115.104.06 - [id number] Implanted:Qty: 1 on 12/28/2024 by Parth Dalton MD at [facility] Sternum [employer] 115.104. 06 [...] METABOLIC PANEL Routine 01/18/2025 8:37 PM CDT GAS CUTTER EVALUATE AND TREAT VIDEOFLUOROSCOPIC SWALLOW STUDY Routine 01/18/2025 1:33 PM CDT GAS CUTTER EVALUATE AND TREAT Routine 1:33 PM CDT [...] VIDEO IP Routine 01/10/2025 3:45 PM CDT GAS CUTTER EVALUATE AND TREAT VIDEOFLUOROSCOPIC SWALLOW STUDY Routine [...] FOR OR Routine 12/28/2024 7:51 AM CDT MI AN PROCEDURE PLACEHOLDER Routine 12/28/2024 7:30 AM CDT CLOSURE STERNAL - WITH PLATES 12/28/2024 6:56 AM CDT Coronary artery disease, unspecified vessel or lesion type, unspecified whether angina present, unspecified whether habematolel or transplanted heart MAZE PROCEDURE OPEN HEART 12/28/2024 6:56 AM CDT Coronary artery disease, unspecified vessel or lesion type, unspecified whether angina present, unspecified whether habematolel or transplanted heart ENDOSCOPIC VESSEL HARVEST 12/28/2024 6:56 AM CDT Coronary artery disease, unspecified vessel or lesion type, unspecified whether angina present, unspecified whether habematolel or transplanted heart CORONARY ARTERY BYPASS GRAFT WITH PUMP 12/28/2024 6:56 AM CDT Coronary artery disease, unspecified vessel or lesion type, unspecified whether angina present, unspecified whether habematolel or transplanted heart EGFR Routine 12/27/2024 9:28 [...] LAB BLOOD ORDERABLES Final Re sult [facility] Department [place] [address] * (ABNORMAL) Differential, auto (01/18/2025 8:37 PM CDT) Neutrophil abs 5.65 1.50 - 6.50 K/cumm Imm gran abs 0.04 0.00 - 0.10 K/cumm [facility] Lymphocyte abs 0.38(L) 0.80 - 3.30 K/cumm [facility] Monocyte abs 0.63 0.20 - 0.80 K/cumm [facility] Eosinophil abs 0.04 0.00 - 0.50 K/cumm [facility] Basophil abs 0.03 0.00 - 0.10 K/cumm [facility] Neutrophil pct 83.5 % [facility] Comment: Interpretive Data Percent cell count reference ranges are not reported, since discordance with absolute values may lead to misinterpretation of CBC data. Current Interpretive Data was last revised on 2017. Imm gran pct 0.6 % [facility] Comment: Interpretive Data Percent cell count reference ranges are not reported, since discordance with absolute values may lead to misinterpretation of CBC data. Current Interpretive Data was last revised on 2017. Lymphocyte pct 5.6 % [facility] Comment: Interpretive Data Percent cell count reference ranges are not reported, since discordance with absolute values may lead to misinterpretation of CBC data. Current Interpretive Data was last revised on 2017. Monocyte pct 9.3 % [facility] Comment: Interpretive Data Percent cell count reference ranges are not reported, since discordance with absolute values may lead to misinterpretation of CBC data. Current Interpretive Data was last revised on 2017. Eosinophil pct 0.6 % [facility] Comment: Interpretive Data Percent cell count reference ranges are not reported, since discordance with absolute values may lead to misinterpretation of CBC data. Current Interpretive Data was last revised on 2017. Basophil pct 0.4 % [facility] Comment: Interpretive Data Percent cell count reference ranges are not reported, since discordance with absolute values may lead to misinterpretation of CBC data. Current Interpretive Data was last revised on 2017. Blood 01/18/2025 8:37 PM CDT 01/18/2025 9:32 PM CDT Rosa Beltran [employer]INTED [employer] BOARD DESIGNER LAB BLOOD ORDERABLES Final Re sult Performing Organization Address City/[facility]/ZIP Co de Phone Number [facility] [place] [address] * (ABNORMAL) CBC with auto differential (01/18/2025 8:37 PM CDT) Pathologist [facility] [place] WBC 6.77 3.80 - 9.90 K/cumm Hgb 8.4(L) 13.0 - 17.5 g/dL [facility] Hct 25.7(L) 38.9 - 50.3 % [facility] Plt 252 150 - 400 K/cumm [facility] MPV 10.5 9.1 - 12.3 fL [facility] RBC 2.66(L) 4.30 - 5.80 M/cumm [facility] MCV 96.6(H) 81.3 - 96.4 fL [facility] MCH 31.6 27.1 - 33.3 pg [facility] MCHC 32.7 32.3 - 35.7 g/dL [facility] RDW CV 17.0(H) 11.1 - 14.9 % [facility] RDW SD 61.1(H) 35.7 - 48.1 fL [facility] NRBC abs 0.00 0.00 - 0.01 K/cumm [facility] Blood 01/18/2025 8:37 PM CDT 01/18/2025 9:32 PM CDT Rosa Beltran [employer] DESIGNER LAB BLOOD ORDERABLES Final Re sult [facility] Department [place] [address] * Phosphorus (01/18/2025 8:37 PM CDT) Phosphorus, pl 3.3 2.3 - 4.5 mg/dL Blood 01/18/2025 8:37 PM CDT 01/18/2025 9:32 PM CDT Rosa Beltran [employer] DESIGNER LAB BLOOD ORDERABLES Final Re sult Performing Organization Address City/[facility] Co de Phone Number [facility] Department [place] [address] * Magnesium (01/18/2025 8:37 PM CDT) [facility] Magnesium 2.1 1.4 - 2.5 mg/dL Blood 01/18/2025 8:37 PM CDT 01/18/2025 9:32 PM CDT Rosa Beltran LAB BLOOD ORDERABLES Final Re sult Performing Organization Address [facility] de Phone Number [facility] Department [place] [address] * (ABNORMAL) Basic metabolic panel (01/18/2025 8:37 PM CDT) [facility] Sodium 141 135 - 145 mmol/L Potassium, pl 4.7 3.3 - 4.9 mmol/L [facility] Chloride 106 97 - 110 mmol/L [facility] CO2 27 22 - 32 mmol/L [facility] Anion gap 8 2 - 15 mmol/L [facility] BUN 25 6 - 25 mg/dL [facility] Creatinine 1.52(H) 0.80 - 1.30 mg/dL [facility] Glucose 107 70 - 199 mg/dL [facility] Comment: Interpretive Data Fasting glucose >/= 126 [...] CDT 01/18/2025 9:32 PM CDT Rosa Beltran [employer] DESIGNER LAB BLOOD ORDERABLES Final Re sult [facility] Department [place] [address] * GAS CUTTER Evaluate and Treat (VFSS) (01/18/2025 1:33 PM [...] review General Information Megan Brian Tacho 01/18/25 GAS CUTTER Received On: 01/18/25 General Observations: Pt seen [...] at 90 degrees. Consistencies Administered: Thin liquids, Isabela thickened liquids, Purees, Solids Administered consistencies contain barium product. Thin Liquids: Laryngeal Penetration: None Aspiration Present: No Penetration Aspiration Scale-Thin: 1-Material does not enter airway Isabela Thickened Liquids: Laryngeal Penetration: None Aspiration Present: No Penetration Aspiration Scale-Isabela: 1-Material does not enter airway Purees: Laryngeal [...] treatment goals and details, if indicated. Plan GAS CUTTER Frequency of Services during current admission: Discharge from this Service GAS CUTTER Recommendation (Add'l Services): No further GAS CUTTER indicated Next Visit Plan: No further ST warranted Additional Referrals: none Discharge Summary Statement If this is the last swallow therapy visit, this serves as the discharge summary. us Charissa Colvin NP GAS CUTTER ORDERABLES Final Resul t * GAS CUTTER Evaluation and Treatment (01/18/2025 1:33 PM CDT) [...] chart review General Information Megan Titus 01/18/25 GAS CUTTER Received On: 01/18/25 General Observations: Pt seen [...] at 90 degrees. Consistencies Administered: Thin liquids, Isabela thickened liquids, Purees, Solids Administered consistencies contain barium product. Thin Liquids: Laryngeal Penetration: None Aspiration Present: No Penetration Aspiration Scale-Thin: 1-Material does not enter airway Isabela Thickened Liquids: Laryngeal Penetration: None Aspiration Present: No Penetration Aspiration Scale-Isabela: 1-Material does not enter airway Purees: Laryngeal [...] treatment goals and details, if indicated. Plan GAS CUTTER Frequency of Services during current admission: Discharge from this Service GAS CUTTER Recommendation (Add'l Services): No further GAS CUTTER indicated Next Visit Plan: No further ST warranted Additional Referrals: none Discharge Summary Statement If this is the last swallow therapy visit, this serves as the discharge summary. us Jyotsna Salazar NP GAS CUTTER ORDERABLES Final Resu lt * [place] Modified [...] NP LAB BLOOD ORDERABLES Final Re sult [facility] Department [place] [address] * (ABNORMAL) Differential, auto (01/17/2025 7:37 PM CDT) Neutrophil abs 6.05 1.50 - 6.50 K/cumm Imm gran abs 0.03 0.00 - 0.10 K/cumm [facility] Lymphocyte abs 0.35(L) 0.80 - 3.30 K/cumm [facility] Monocyte abs 0.43 0.20 - 0.80 K/cumm [facility] Eosinophil abs 0.07 0.00 - 0.50 K/cumm [facility] Basophil abs 0.03 0.00 - 0.10 K/cumm [facility] Neutrophil pct 87.0 % [facility] Comment: Interpretive Data Percent cell count reference ranges are not reported, since discordance with absolute values may lead to misinterpretation of CBC data. Current Interpretive Data was last revised on 2017. Imm gran pct 0.4 % [facility] Comment: Interpretive Data Percent cell count reference ranges are not reported, since discordance with absolute values may lead to misinterpretation of CBC data. Current Interpretive Data was last revised on 2017. Lymphocyte pct 5.0 % [facility] Comment: Interpretive Data Percent cell count reference ranges are not reported, since discordance with absolute values may lead to misinterpretation of CBC data. Current Interpretive Data was last revised on 2017. Monocyte pct 6.2 % [facility] Comment: Interpretive Data Percent cell count reference ranges are not reported, since discordance with absolute values may lead to misinterpretation of CBC data. Current Interpretive Data was last revised on 2017. Eosinophil pct 1.0 % [facility] Comment: Interpretive Data Percent cell count reference ranges are not reported, since discordance with absolute values may lead to misinterpretation of CBC data. Current Interpretive Data was last revised on 2017. Basophil pct 0.4 % [facility] Comment: Interpretive Data Percent cell count reference ranges are not reported, since discordance with absolute values may lead to misinterpretation of CBC data. Current Interpretive Data was last revised on 2017. Blood 01/17/2025 7:37 PM CDT 01/17/2025 8:49 PM CDT Rosa Beltran NP LAB BLOOD ORDERABLES Final Re sult [facility] Department [place] [address] * (ABNORMAL) CBC with auto differential (01/17/2025 7:37 PM CDT) WBC 6.96 3.80 - 9.90 K/cumm Hgb 8.4(L) 13.0 - 17.5 g/dL [facility] Hct 24.7(L) 38.9 - 50.3 % [facility] Plt 277 150 - 400 K/cumm [facility] MPV 10.6 9.1 - 12.3 fL [facility] RBC 2.55(L) 4.30 - 5.80 M/cumm [facility] MCV 96.9(H) 81.3 - 96.4 fL [facility] MCH 32.9 27.1 - 33.3 pg [facility] MCHC 34.0 32.3 - 35.7 g/dL [facility] RDW CV 17.2(H) 11.1 - 14.9 % [facility] RDW SD 61.2(H) 35.7 - 48.1 fL [facility] NRBC abs 0.00 0.00 - 0.01 K/cumm [facility] Blood 01/17/2025 7:37 PM CDT 01/17/2025 8:49 PM CDT Rosa Beltran LAB BLOOD ORDERABLES Final Re sult Performing Organization Address [facility] [place] [address] * Type and screen (01/17/2025 7:37 PM CDT) Pathologist [facility] [place] Becca, indirect Negative ABO Rh A Positive [facility] Blood 01/17/2025 7:37 PM CDT 01/17/2025 8:36 PM CDT Narrative [facility] - 01/17/2025 9:30 PM CDT Has the patient had Daratumumab or Isatuximab in the past 6 months?->Unknown Rosa Beltran [facility] BLOOD BANK TEST ORDERABLE S Final Result Performing Organization Address [facility] Co de Phone Number [facility] [place] [address] * Phosphorus (01/17/2025 7:37 PM CDT) Pathologist [facility] [place] Phosphorus, pl 3.3 2.3 - 4.5 mg/dL Blood 01/17/2025 7:37 PM CDT 01/17/2025 9:06 PM CDT [facility] LAB BLOOD ORDERABLES Final Re sult Performing Organization Address City/[facility]/ZIP Co de Phone Number [facility] [place] [address] * Magnesium (01/17/2025 7:37 PM CDT) [facility] Magnesium 2.2 1.4 - 2.5 mg/dL Blood 01/17/2025 7:37 PM CDT 01/17/2025 9:06 PM CDT Rosa Beltran NP LAB BLOOD ORDERABLES Final Re sult Performing Organization Address [facility] Co de Phone Number [facility] Department [place] [address] * (ABNORMAL) Hepatic function panel (01/17/2025 7:37 PM CDT) [facility] Bilirubin, total 0.4 0.1 - 1.2 mg/dL Bilirubin, direct 0.2 0.1 - 0.3 mg/dL [facility] Protein, pl 5.9(L) 6.5 - 8.5 g/dL [facility] Albumin 2.7(L) 3.5 - 5.0 g/dL [facility] Alk phos 80 40 - 130 Units/L [facility] ALT 18 7 - 55 Units/L [facility] AST 17 10 - 50 Units/L [facility] Blood 01/17/2025 7:37 PM CDT 01/17/2025 9:06 PM CDT Parth Dalton MD LAB BLOOD ORDERABLES Final Re sult Performing Organization Address [facility] Co de Phone Number [facility] Department [place] [address] * (ABNORMAL) Basic metabolic panel (01/17/2025 7:37 PM CDT) [facility] Sodium 135 135 - 145 mmol/L Potassium, pl 4.4 3.3 - 4.9 mmol/L [facility] Chloride 100 97 - 110 mmol/L [facility] CO2 24 22 - 32 mmol/L [facility] Anion gap 11 2 - 15 mmol/L [facility] BUN 32(H) 6 - 25 mg/dL [facility] Creatinine 1.47(H) 0.80 - 1.30 mg/dL [facility] Glucose 131 70 - 199 mg/dL [facility] Comment: Interpretive Data Fasting glucose >/= 126 [...] 2022. Calcium 7.9(L) 8.5 - 10.3 mg/dL [facility] Blood 01/17/2025 7:37 PM CDT 01/17/2025 9:06 PM CDT Rosa Beltran NP LAB BLOOD ORDERABLES Final Re sult [facility] Department [place] [address] * Infection Prevention Lbanche auris PCR, surveillance Axilla/Groin (01/17/2025 6:10 AM CDT) Pathologist [facility] [place] Blanche auris DNA Not Detected Not Detected [facility] Comment: Interpretive Data Testing performed by [facility] Molecular Infectious Disease Laboratory using the Daquan flaquita 6800 Blanche auris assay. This assay detects DNA from Blanche auris using Real-Time PCR. This assay is laboratory developed and is not cleared by the [place] Food and Drug Administration. The performance characteristics have been verified by the [facility] Molecular Infectious Disease Laboratory. Axilla/Groin 01/17/2025 6:10 AM CDT 01/17/2025 6:30 AM CDT N[facility]ative [facility] - 01/17/2025 12:20 PM CDT Order placed by [facility] due to ring surveillance. Instant Order Generic Provider LAB MICROBIOLOGY - GENERAL ORDERABLES Final Result Performing Organization Address [facility] Co de Phone Number [facility] [place] [address] [facility] * Digoxin level (01/17/2025 6:10 AM CDT) [...] CDT 01/17/2025 6:36 AM CDT Marci Rater [employer] LAB BLOOD ORDERABLES Final Resul t Performing Organization Address [facility] Co de Phone Number [facility] [place] [address] * XR Chest Pa Lateral 2 Views [...] signed by: Lupe Garland M.D. Rosa Beltran [employer] DES[employer] IMG XR PROCEDURES Final Resul t * [...] NP LAB BLOOD ORDERABLES Final Re sult [facility] Department [place] [address] * (ABNORMAL) Differential, auto (01/16/2025 7:44 PM CDT) Neutrophil abs 6.25 1.50 - 6.50 K/cumm Imm gran abs 0.05 0.00 - 0.10 K/cumm [facility] Lymphocyte abs 0.48(L) 0.80 - 3.30 K/cumm [facility] Monocyte abs 0.58 0.20 - 0.80 K/cumm [facility] Eosinophil abs 0.16 0.00 - 0.50 K/cumm [facility] Basophil abs 0.04 0.00 - 0.10 K/cumm [facility] Neutrophil pct 82.7 % [facility] Comment: Interpretive Data Percent cell count reference ranges are not reported, since discordance with absolute values may lead to misinterpretation of CBC data. Current Interpretive Data was last revised on 2017. Imm gran pct 0.7 % [facility] Comment: Interpretive Data Percent cell count reference ranges are not reported, since discordance with absolute values may lead to misinterpretation of CBC data. Current Interpretive Data was last revised on 2017. Lymphocyte pct 6.3 % [facility] Comment: Interpretive Data Percent cell count reference ranges are not reported, since discordance with absolute values may lead to misinterpretation of CBC data. Current Interpretive Data was last revised on 2017. Monocyte pct 7.7 % [facility] Comment: Interpretive Data Percent cell count reference ranges are not reported, since discordance with absolute values may lead to misinterpretation of CBC data. Current Interpretive Data was last revised on 2017. Eosinophil pct 2.1 % [facility] Comment: Interpretive Data Percent cell count reference ranges are not reported, since discordance with absolute values may lead to misinterpretation of CBC data. Current Interpretive Data was last revised on 2017. Basophil pct 0.5 % [facility] Comment: Interpretive Data Percent cell count reference ranges are not reported, since discordance with absolute values may lead to misinterpretation of CBC data. Current Interpretive Data was last revised on 2017. Blood 01/16/2025 7:44 PM CDT 01/16/2025 8:01 PM CDT Rosa Beltran NP LAB BLOOD ORDERABLES Final Re sult [facility] Department [place] [address] * (ABNORMAL) CBC with auto differential (01/16/2025 7:44 PM CDT) WBC 7.56 3.80 - 9.90 K/cumm Hgb 8.3(L) 13.0 - 17.5 g/dL [facility] Hct 25.6(L) 38.9 - 50.3 % [facility] Plt 270 150 - 400 K/cumm [facility] MPV 9.9 9.1 - 12.3 fL [facility] RBC 2.65(L) 4.30 - 5.80 M/cumm [facility] MCV 96.6(H) 81.3 - 96.4 fL [facility] MCH 31.3 27.1 - 33.3 pg [facility] MCHC 32.4 32.3 - 35.7 g/dL [facility] RDW CV 16.8(H) 11.1 - 14.9 % [facility] RDW SD 59.9(H) 35.7 - 48.1 fL [facility] NRBC abs 0.00 0.00 - 0.01 K/cumm [facility] Blood 01/16/2025 7:44 PM CDT 01/16/2025 8:01 PM CDT Rosa Beltran [employer] LAB BLOOD ORDERABLES Final Re sult Performing Organization Address [facility] Co de Phone Number [facility] [place] [address] * Phosphorus (01/16/2025 7:44 PM CDT) [facility] Phosphorus, pl 3.4 2.3 - 4.5 mg/dL Blood 01/16/2025 7:44 PM CDT 01/16/2025 8:01 PM CDT Rosa Beltran [employer] LAB BLOOD ORDERABLES Final Re sult Performing Organization Address [facility] de Phone Number [facility] Department [place] [address] * Magnesium (01/16/2025 7:44 PM CDT) [facility] Magnesium 2.4 1.4 - 2.5 mg/dL Blood 01/16/2025 7:44 PM CDT 01/16/2025 8:01 PM CDT Rosa Beltran [employer] DES[employer] LAB BLOOD ORDERABLES Final Re sult Performing Organization Address [facility] [place] [address] * (ABNORMAL) Basic metabolic panel (01/16/2025 7:44 PM CDT) [facility] Sodium 142 135 - 145 mmol/L Potassium, pl 4.5 3.3 - 4.9 mmol/L [facility] Chloride 107 97 - 110 mmol/L [facility] CO2 26 22 - 32 mmol/L [facility] Anion gap 9 2 - 15 mmol/L [facility] BUN 34(H) 6 - 25 mg/dL [facility] Creatinine 1.31(H) 0.80 - 1.30 mg/dL [facility] Glucose 111 70 - 199 mg/dL [facility] Comment: Interpretive Data Fasting glucose >/= 126 [...] 2022. Calcium 7.8(L) 8.5 - 10.3 mg/dL [facility] Blood 01/16/2025 7:44 PM CDT 01/16/2025 8:01 PM CDT Rosa Beltran [employer] LAB BLOOD ORDERABLES Final Re sult [facility] Department [place] [address] * TRANSTHORACIC ECHO (TTE) LIMITED/FOLLOW UP W LTD DOPPLER/CF W CONTRAST (01/16/2025 5:39 PM CDT) EF Mod BP 47 % CONS SCIMAGE Anatomical Region Laterality Modality Ultrasound 01/16/2025 4:34 PM CDT Narrative 01/16/2025 6:03 PM CDT [facility] [place]iac [place] [address] Transthoracic Echocardiographic Report Patient Name: MEGAN TITUS G : 1950 (74y 11m) Sex: M Study Date: 01/16/2025 04:34:52 PM Ht(Inch): 70 Wt(Lb): 203.93 BSA: 2.14 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: Kasey Almendarez [facility] Location: [id number] Order Provider: CHARISSA COLVIN Heart Rate: 93 [...] Note Rene Chanel MD PhD - 01/16/2025 [facility] [place]iac [place] [address] Transthoracic Echocardiographic Report Patient Name: MEGAN TITUS G : 1950 (74y 11m) Sex: M Study Date: 01/16/2025 04:34:52 PM Ht(Inch): 70 Wt(Lb): 203.93 BSA: 2.14 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: Kasey Almendarez RDCS Location: [id number] Order Provider:CHARISSA COLVIN Heart Rate: 93 BMI: [...] Colvin NP LAB BLOOD ORDERABLES Final Result [facility] Department [place] [address] * (ABNORMAL) Basic metabolic panel (01/16/2025 4:23 PM CDT) Pathologist [facility] [place] Sodium 138 135 - 145 mmol/L Potassium, pl 4.8 3.3 - 4.9 mmol/L [facility] Chloride 104 97 - 110 mmol/L [facility] CO2 27 22 - 32 mmol/L [facility] Anion gap 7 2 - 15 mmol/L [facility] BUN 36(H) 6 - 25 mg/dL [facility] Creatinine 1.30 0.80 - 1.30 mg/dL [facility] Glucose 113 70 - 199 mg/dL [facility] Comment: Interpretive Data Fasting glucose >/= 126 [...] 2022. Calcium 8.0(L) 8.5 - 10.3 mg/dL [facility] Blood 01/16/2025 4:23 PM CDT 01/16/2025 5:41 PM CDT Charissa Colvin [employer] LAB BLOOD ORDERABLES Final Result [facility] Department [place] [address] * Potassium, whole blood (01/16/2025 4:38 AM CDT) Pathologist [facility] [place] Potassium, bld 4.2 3.3 - 4.9 mmol/L Blood 01/16/2025 4:38 AM CDT 01/16/2025 4:48 AM CDT Rosa Beltran [employer] LAB BLOOD ORDERABLES Final Re sult [facility] Department [place] [address] * (ABNORMAL) eGFR (01/15/2025 11:59 PM CDT) Pathologist [facility] [place] eGFR 56(L) >=60 mL/min/1. 73 m2 Comment: [...] ORDERABLES F inal Result Performing Organization Address City/[facility]/ZIP Co de Phone Number [facility] [place] [address] * (ABNORMAL) Creatinine (01/15/2025 11:59 PM CDT) Creatinine 1.34(H) 0.80 - 1.30 mg/dL Blood 01/15/2025 11:5 9 PM CDT 01/16/2025 12:31 AM CDT Narrative [facility] - 01/16/2025 1:47 AM CDT While on apixaban Gloria Ledezma NP LAB BLOOD ORDERABLES F inal Result [facility] Department [place] [address] * (ABNORMAL) eGFR (01/15/2025 7:47 PM CDT) [...] NP LAB BLOOD ORDERABLES Final Re sult [facility] [place] [address] * (ABNORMAL) Differential, auto (01/15/2025 7:47 PM CDT) [facility] Neutrophil abs 7.63(H) 1.50 - 6.50 K/cumm Imm gran abs 0.07 0.00 - 0.10 K/cumm [facility] Lymphocyte abs 0.55(L) 0.80 - 3.30 K/cumm [facility] Monocyte abs 0.50 0.20 - 0.80 K/cumm [facility] Eosinophil abs 0.12 0.00 - 0.50 K/cumm [facility] Basophil abs 0.04 0.00 - 0.10 K/cumm [facility] Neutrophil pct 85.7 % [facility] Comment: Interpretive Data Percent cell count reference ranges are not reported, since discordance with absolute values may lead to misinterpretation of CBC data. Current Interpretive Data was last revised on 2017. Imm gran pct 0.8 % [facility] Comment: Interpretive Data Percent cell count reference ranges are not reported, since discordance with absolute values may lead to misinterpretation of CBC data. Current Interpretive Data was last revised on 2017. Lymphocyte pct 6.2 % [facility] Comment: Interpretive Data Percent cell count reference ranges are not reported, since discordance with absolute values may lead to misinterpretation of CBC data. Current Interpretive Data was last revised on 2017. Monocyte pct 5.6 % [facility] Comment: Interpretive Data Percent cell count reference ranges are not reported, since discordance with absolute values may lead to misinterpretation of CBC data. Current Interpretive Data was last revised on 2017. Eosinophil pct 1.3 % [facility] Comment: Interpretive Data Percent cell count reference ranges are not reported, since discordance with absolute values may lead to misinterpretation of CBC data. Current Interpretive Data was last revised on 2017. Basophil pct 0.4 % [facility] Comment: Interpretive Data Percent cell count reference ranges are not reported, since discordance with absolute values may lead to misinterpretation of CBC data. Current Interpretive Data was last revised on 2017. Blood 01/15/2025 7:47 PM CDT 01/15/2025 9:03 PM CDT Rosa Beltran NP LAB BLOOD ORDERABLES Final Re sult [facility] Department [place] [address] * (ABNORMAL) CBC with auto differential (01/15/2025 7:47 PM CDT) WBC 8.91 3.80 - 9.90 K/cumm Hgb 9.1(L) 13.0 - 17.5 g/dL [facility] Hct 28.6(L) 38.9 - 50.3 % [facility] Plt 301 150 - 400 K/cumm [facility] MPV 10.3 9.1 - 12.3 fL [facility] RBC 2.90(L) 4.30 - 5.80 M/cumm [facility] MCV 98.6(H) 81.3 - 96.4 fL [facility] MCH 31.4 27.1 - 33.3 pg [facility] MCHC 31.8(L) 32.3 - 35.7 g/dL [facility] RDW CV 16.9(H) 11.1 - 14.9 % [facility] RDW SD 61.0(H) 35.7 - 48.1 fL [facility] NRBC abs 0.00 0.00 - 0.01 K/cumm [facility] Blood 01/15/2025 7:47 PM CDT 01/15/2025 9:03 PM CDT Rosa Beltran [employer] LAB BLOOD ORDERABLES Final Re sult Performing Organization Address City/[facility]/ZIP Co de Phone Number [facility] Department [place] [address] * Phosphorus (01/15/2025 7:47 PM CDT) Phosphorus, pl 4.1 2.3 - 4.5 mg/dL Blood 01/15/2025 7:47 PM CDT 01/15/2025 8:25 PM CDT Rosa Beltran [employer] LAB BLOOD ORDERABLES Final Re sult [facility] Department [place] [address] * Magnesium (01/15/2025 7:47 PM CDT) Pathologist [facility] [place] Magnesium 2.3 1.4 - 2.5 mg/dL Blood 01/15/2025 7:47 PM CDT 01/15/2025 8:25 PM CDT Rosa Beltran [employer] LAB BLOOD ORDERABLES Final Re sult [facility] Department [place] [address] * (ABNORMAL) Basic metabolic panel (01/15/2025 7:47 PM CDT) Sodium 137 135 - 145 mmol/L Potassium, pl 4.4 3.3 - 4.9 mmol/L [facility] Chloride 102 97 - 110 mmol/L [facility] CO2 23 22 - 32 mmol/L [facility] Anion gap 12 2 - 15 mmol/L [facility] BUN 35(H) 6 - 25 mg/dL [facility] Creatinine 1.40(H) 0.80 - 1.30 mg/dL [facility] Glucose 145 70 - 199 mg/dL [facility] Comment: Interpretive Data Fasting glucose >/= 126 [...] 2022. Calcium 8.1(L) 8.5 - 10.3 mg/dL [facility] Blood 01/15/2025 7:47 PM CDT 01/15/2025 8:25 PM CDT Rosa Beltran [employer] LAB BLOOD ORDERABLES Final Re sult [facility] Department [place] [address] * Infection Prevention Blanche auris PCR, surveillance Axilla/Groin (01/15/2025 5:51 AM CDT) [facility] Blanche auris DNA Not Detected Not Detected [facility] Comment: Interpretive Data Testing performed by [facility] Molecular Infectious Disease Laboratory using the Daquan flaquita 6800 Blanche auris assay. This assay detects DNA from Blanche auris using Real-Time PCR. This assay is laboratory developed and is not cleared by the [place] Food and Drug Administration. The performance characteristics have been verified by the [facility] Molecular Infectious Disease Laboratory. Axilla/Groin 01/15/2025 5:51 AM CDT 01/15/2025 6:11 AM CDT Narrative [facility] - 01/15/2025 12:39 PM CDT Order placed by [facility] due to ring surveillance. Instant Order Generic Provider LAB MICROBIOLOGY - GENERAL ORDERABLES Final Result [facility] Department [place] [address] [facility] * Potassium, whole blood (01/15/2025 5:51 AM CDT) [facility] Potassium, bld 4.1 3.3 - 4.9 mmol/L Blood 01/15/2025 5:51 AM CDT 01/15/2025 5:57 AM CDT Jyotsna Salazar [employer] LAB BLOOD ORDERABLES Final Result [facility] Department [place] [address] * (ABNORMAL) eGFR (01/14/2025 8:45 PM CDT) [facility] eGFR 56(L) >=60 mL/min/1. 73 m2 Comment: [...] NP LAB BLOOD ORDERABLES Final Re sult [facility] Department [place] [address] * (ABNORMAL) Differential, auto (01/14/2025 8:45 PM CDT) Neutrophil abs 7.22(H) 1.50 - 6.50 K/cumm Imm gran abs 0.08 0.00 - 0.10 K/cumm [facility] Lymphocyte abs 0.49(L) 0.80 - 3.30 K/cumm [facility] Monocyte abs 0.67 0.20 - 0.80 K/cumm [facility] Eosinophil abs 0.14 0.00 - 0.50 K/cumm [facility] Basophil abs 0.05 0.00 - 0.10 K/cumm [facility] Neutrophil pct 83.5 % [facility] Comment: Interpretive Data Percent cell count reference ranges are not reported, since discordance with absolute values may lead to misinterpretation of CBC data. Current Interpretive Data was last revised on 2017. Imm gran pct 0.9 % [facility] Comment: Interpretive Data Percent cell count [...] revised on 2017. Monocyte pct 7.7 % [facility] Comment: Interpretive Data Percent cell count reference ranges are not reported, since discordance with absolute values may lead to misinterpretation of CBC data. Current Interpretive Data was last revised on 2017. Eosinophil pct 1.6 % [facility] Comment: Interpretive Data Percent cell count reference ranges are not reported, since discordance with absolute values may lead to misinterpretation of CBC data. Current Interpretive Data was last revised on 2017. Basophil pct 0.6 % [facility] Comment: Interpretive Data Percent cell count reference ranges are not reported, since discordance with absolute values may lead to misinterpretation of CBC data. Current Interpretive Data was last revised on 2017. Blood 01/14/2025 8:45 PM CDT 01/14/2025 9:59 PM CDT Rosa Beltran NP LAB BLOOD ORDERABLES Final Re sult [facility] Department [place] [address] * (ABNORMAL) CBC with auto differential (01/14/2025 8:45 PM CDT) WBC 8.65 3.80 - 9.90 K/cumm Hgb 8.9(L) 13.0 - 17.5 g/dL [facility] Hct 27.0(L) 38.9 - 50.3 % [facility] Plt 302 150 - 400 K/cumm [facility] MPV 10.1 9.1 - 12.3 fL [facility] RBC 2.81(L) 4.30 - 5.80 M/cumm [facility] MCV 96.1 81.3 - 96.4 fL [facility] MCH 31.7 27.1 - 33.3 pg [facility] MCHC 33.0 32.3 - 35.7 g/dL [facility] RDW CV 17.2(H) 11.1 - 14.9 % [facility] RDW SD 61.4(H) 35.7 - 48.1 fL [facility] NRBC abs 0.00 0.00 - 0.01 K/cumm [facility] Blood 01/14/2025 8:45 PM CDT 01/14/2025 9:59 PM CDT Rosa Beltran NP LAB BLOOD ORDERABLES Final Re sult Performing Organization Address [facility] [place] [address] * Type and screen (01/14/2025 8:45 PM CDT) ABO Rh A Positive Becca, indirect Negative [facility] Blood 01/14/2025 8:45 PM CDT 01/14/2025 10:10 PM CDT Narrative [facility] - 01/14/2025 11:33 PM CDT Has the patient had Daratumumab or Isatuximab in the past 6 months?->Unknown Rosa Beltran [facility] BLOOD BANK TEST ORDERABLE S Final Result Performing Organization Address [facility] de Phone Number [facility] [place] [address] * Phosphorus (01/14/2025 8:45 PM CDT) Phosphorus, pl 4.0 2.3 - 4.5 mg/dL Blood 01/14/2025 8:45 PM CDT 01/14/2025 9:57 PM CDT Rosa Beltran [employer] LAB BLOOD ORDERABLES Final Re sult Performing Organization Address [facility] Co de Phone Number [facility] [place] [address] * Magnesium (01/14/2025 8:45 PM CDT) [facility] Magnesium 2.2 1.4 - 2.5 mg/dL Blood 01/14/2025 8:45 PM CDT 01/14/2025 9:57 PM CDT Rosa Beltran NP LAB BLOOD ORDERABLES Final Re sult Performing Organization Address City/[facility]/ZIP Co de Phone Number [facility] [place] [address] * (ABNORMAL) Hepatic function panel (01/14/2025 8:45 PM CDT) [facility] Bilirubin, total 0.5 0.1 - 1.2 mg/dL Bilirubin, direct 0.2 0.1 - 0.3 mg/dL [facility] Protein, pl 5.8(L) 6.5 - 8.5 g/dL [facility] Albumin 2.9(L) 3.5 - 5.0 g/dL [facility] Alk phos 73 40 - 130 Units/L [facility] ALT 33 7 - 55 Units/L [facility] AST 19 10 - 50 Units/L [facility] Blood 01/14/2025 8:45 PM CDT 01/14/2025 9:57 PM CDT Parth Dalton MD LAB BLOOD ORDERABLES Final Re sult Performing Organization Address City/[facility]/ZIP Co de Phone Number [facility] Department [place] [address] * (ABNORMAL) Basic metabolic panel (01/14/2025 8:45 PM CDT) [facility] Sodium 137 135 - 145 mmol/L Potassium, pl 4.5 3.3 - 4.9 mmol/L [facility] Chloride 101 97 - 110 mmol/L [facility] CO2 25 22 - 32 mmol/L [facility] Anion gap 11 2 - 15 mmol/L [facility] BUN 39(H) 6 - 25 mg/dL [facility] Creatinine 1.34(H) 0.80 - 1.30 mg/dL [facility] Glucose 120 70 - 199 mg/dL [facility] Comment: Interpretive Data Fasting glucose >/= 126 [...] 2022. Calcium 8.0(L) 8.5 - 10.3 mg/dL [facility] Blood 01/14/2025 8:45 PM CDT 01/14/2025 9:57 PM CDT Rosa Beltran NP LAB BLOOD ORDERABLES Final Re sult [facility] Department [place] [address] * XR Chest 1 View (01/14/2025 6:52 [...] by: Magnus Farah M.D. us Marci Rater [employer] IMG XR PROCEDURES Final Result * (ABNORMAL) [...] NP LAB BLOOD ORDERABLES Final Re sult [facility] Department [place] [address] * (ABNORMAL) Differential, auto (01/13/2025 10:00 PM CDT) Neutrophil abs 7.65(H) 1.50 - 6.50 K/cumm Imm gran abs 0.09 0.00 - 0.10 K/cumm [facility] Lymphocyte abs 0.64(L) 0.80 - 3.30 K/cumm [facility] Monocyte abs 0.87(H) 0.20 - 0.80 K/cumm [facility] Eosinophil abs 0.14 0.00 - 0.50 K/cumm [facility] Basophil abs 0.04 0.00 - 0.10 K/cumm [facility] Neutrophil pct 81.1 % [facility] Comment: Interpretive Data Percent cell count reference ranges are not reported, since discordance with absolute values may lead to misinterpretation of CBC data. Current Interpretive Data was last revised on 2017. Imm gran pct 1.0 % [facility] Comment: Interpretive Data Percent cell count reference ranges are not reported, since discordance with absolute values may lead to misinterpretation of CBC data. Current Interpretive Data was last revised on 2017. Lymphocyte pct 6.8 % [facility] Comment: Interpretive Data Percent cell count reference [...] revised on 2017. Eosinophil pct 1.5 % [facility] Comment: Interpretive Data Percent cell count reference ranges are not reported, since discordance with absolute values may lead to misinterpretation of CBC data. Current Interpretive Data was last revised on 2017. Basophil pct 0.4 % [facility] Comment: Interpretive Data Percent cell count reference ranges are not reported, since discordance with absolute values may lead to misinterpretation of CBC data. Current Interpretive Data was last revised on 2017. Blood 01/13/2025 10:0 0 PM CDT 01/13/2025 10:43 PM CDT Rosa Beltran [employer] LAB BLOOD ORDERABLES Final Re sult [facility] [place] [address] * (ABNORMAL) CBC with auto differential (01/13/2025 10:00 PM CDT) WBC 9.43 3.80 - 9.90 K/cumm Hgb 9.3(L) 13.0 - 17.5 g/dL [facility] Hct 27.4(L) 38.9 - 50.3 % [facility] Plt 319 150 - 400 K/cumm [facility] MPV 10.2 9.1 - 12.3 fL [facility] RBC 2.88(L) 4.30 - 5.80 M/cumm [facility] MCV 95.1 81.3 - 96.4 fL [facility] MCH 32.3 27.1 - 33.3 pg [facility] MCHC 33.9 32.3 - 35.7 g/dL [facility] RDW CV 17.7(H) 11.1 - 14.9 % [facility] RDW SD 61.7(H) 35.7 - 48.1 fL [facility] NRBC abs 0.00 0.00 - 0.01 K/cumm [facility] Blood 01/13/2025 10:0 0 PM CDT 01/13/2025 10:43 PM CDT Rosa Beltran [employer] LAB BLOOD ORDERABLES Final Re sult Performing Organization Address City/[facility]/ZIP Co de Phone Number [facility] [place] [address] * (ABNORMAL) Phosphorus (01/13/2025 10:00 PM CDT) Pathologist [facility] [place] Phosphorus, pl 4.8(H) 2.3 - 4.5 mg/dL Blood 01/13/2025 10:0 0 PM CDT 01/13/2025 10:43 PM CDT Rosa Beltran [employer] LAB BLOOD ORDERABLES Final Re sult Performing Organization Address [facility] Co de Phone Number [facility] [place] [address] * Magnesium (01/13/2025 10:00 PM CDT) Pathologist [facility] [place] Magnesium 2.1 1.4 - 2.5 mg/dL Blood 01/13/2025 10:0 0 PM CDT 01/13/2025 10:43 PM CDT Rosa Beltran [employer] LAB BLOOD ORDERABLES Final Re sult Performing Organization Address City/[facility] [place] [address] * (ABNORMAL) Basic metabolic panel (01/13/2025 10:00 PM CDT) Pathologist [facility] [place] Sodium 139 135 - 145 mmol/L Potassium, pl 4.8 3.3 - 4.9 mmol/L [facility] Chloride 102 97 - 110 mmol/L [facility] CO2 26 22 - 32 mmol/L [facility] Anion gap 11 2 - 15 mmol/L [facility] BUN 42(H) 6 - 25 mg/dL [facility] Creatinine 1.43(H) 0.80 - 1.30 mg/dL [facility] Glucose 86 70 - 199 mg/dL [facility] Comment: Interpretive Data Fasting glucose >/= 126 [...] 2022. Calcium 8.4(L) 8.5 - 10.3 mg/dL [facility] Blood 01/13/2025 10:0 0 PM CDT 01/13/2025 10:43 PM CDT Rosa Beltran NP LAB BLOOD ORDERABLES Final Re sult Performing Organization Address City/[facility]/ZIP Co de Phone Number [facility] Department [place] [address] * Potassium, whole blood (01/13/2025 6:49 AM CDT) Pathologist [facility] [place] Potassium, bld 4.5 3.3 - 4.9 mmol/L Blood 01/13/2025 6:49 AM CDT 01/13/2025 6:56 AM CDT Parth Dalton MD LAB BLOOD ORDERABLES Final Re sult Performing Organization Address City/[facility]/ZIP Co de Phone Number [facility] Department [place] [address] * Lactate, whole blood (01/13/2025 6:49 AM CDT) [facility] Lactate, bld 0.9 0.7 - 2.0 mmol/L Blood 01/13/2025 6:49 AM CDT 01/13/2025 6:56 AM CDT Rosa Beltran NP LAB BLOOD ORDERABLES Final Re sult [facility] [place] [address] * (ABNORMAL) CBC without differential (01/13/2025 6:49 AM CDT) [facility] WBC 7.74 3.80 - 9.90 K/cumm Hgb 10.1(L) 13.0 - 17.5 g/dL [facility] Hct 30.4(L) 38.9 - 50.3 % [facility] Plt 291 150 - 400 K/cumm [facility] MPV 9.8 9.1 - 12.3 fL [facility] RBC 3.17(L) 4.30 - 5.80 M/cumm [facility] MCV 95.9 81.3 - 96.4 fL [facility] Comment:MCV delta due to beau arent blood transfusion. MCH 31.9 27.1 - 33.3 pg [facility] MCHC 33.2 32.3 - 35.7 g/dL [facility] RDW CV 18.1(H) 11.1 - 14.9 % [facility] RDW SD 64.9(H) 35.7 - 48.1 fL [facility] NRBC abs 0.00 0.00 - 0.01 K/cumm [facility] Blood 01/13/2025 6:49 AM CDT 01/13/2025 6:56 AM CDT Narrative [facility] - 01/13/2025 7:26 AM CDT 1 hour after transfusion of red blood cells is complete Rosa Beltran [employer] LAB BLOOD ORDERABLES Final Re sult Performing Organization Address City/[facility]/ZIP Co de Phone Number [facility] Department [place] [address] * Transfuse RBC (01/13/2025 4:01 AM CDT) Blood us Rosa Beltran NP BLOOD TRANSFUSION ORDERABLES Final Result Performing Organization Address [facility] Co de Phone Number [facility] Department [place] [address] * (ABNORMAL) Aerobic culture and gram stain Tracheal aspirate Tracheal (01/13/2025 2:28 AM CDT) Direct Specimen Exam Stain: Abundant polymorphonuclear leukocytes seen. Abundant squamous epithelial cells seen indicating excessive oral pharyngeal contamination Abundant mixed bacterial katja seen on Gram stain. Report Final Report: Greater than or equal to 100,000 colonies/ml of Stenotrophomonas maltophilia Plus growth of clinically insignificant bacterial katja. (.) [facility] Organism STENOTROPHOMONAS MALTOPHILIA [facility] Organism PLUS GROWTH OF CLINICALLY INSIGNIFICANT KATJA. [facility] Tracheal aspirate (Tracheal) 01/13/2025 2:28 AM CDT 01/13/2025 3:35 AM CDT Narrative [facility] - 01/15/2025 2:01 PM CDT Testing performed by [facility] Microbiology Laboratory ([phone]) Specimens submitted from normally sterile body sites [...] OR DERABLES Final Result [facility] M[facility] Department [place] [address] * Blood culture Blood (01/13/2025 2:18 AM [...] performance characteristics have been verified by the [facility]biology Laboratory. For questions about this culture, contact the Microbiology Laboratory at [phone]. Interpretive data was last revised on 24. Rosa Beltran NP LAB MICROBIOLOGY - GENERAL OR DERABLES Final Result [facility] Department [place] [address] * Blood culture Blood (01/13/2025 2:18 AM [...] performance characteristics have been verified by the [facility]biology Laboratory. For questions about this culture, contact the Microbiology Laboratory at [phone]. Interpretive data was last revised on 24. Rosa Beltran NP LAB MICROBIOLOGY - GENERAL OR DERABLES Final Result [facility] Department [place] [address] * Transfuse RBC (01/13/2025 12:41 AM CDT) Blood Rosa Beltran NP BLOOD TRANSFUSION ORDERABLES Final Result [facility] [place] [address] * CT Chest Abdomen Pelvis WO Contrast [...] The Non Critical results were discussed with [employer]ARD DESIGNER Ruby by Dr. Max Butts MD PHD [...] Units (01/12/2025 10:53 PM CDT) Product code [id number] Unit Number [id number] [facility] Product Blood Type APOS [facility] Dispense Status PRESUMED TRANSFUSED [facility] Blood 01/12/2025 10:5 3 PM CDT 01/12/2025 10:53 PM CDT [facility] - 01/13/2025 4:01 PM CDT Are special requirements needed? (All products are leukoreduced and CMV- safe)- >No Date required:-20250112 LRRBC # of [id number] Reasons:-Cardiovascular disease, Hgb <8 g/dL} us Rosa Beltran NP BLOOD BANK PRODUCT ORDERABLES Final Result [facility] Department [place] [address] * Prepare RBC: 1 Units (01/12/2025 8:57 PM CDT) Product code [id number] Unit Number [id number] [facility] Product Blood Type APOS [facility] Dispense Status PRESUMED TRANSFUSED [facility] Blood 01/12/2025 8:57 PM CDT 01/12/2025 8:58 PM CDT Narrative [facility] - 01/13/2025 4:01 PM CDT Are special requirements needed? (All products are leukoreduced and CMV- safe)- >No Date required:-20250112 LRRBC # of [id number] Reasons:-Cardiovascular disease, Hgb <8 g/dL} Rosa Beltran NP BLOOD BANK PRODUCT ORDERABLES Final Result [facility] Department [place] [address] * Infection Prevention Blanche auris PCR, surveillance Axilla/Groin (01/12/2025 6:27 PM CDT) [facility] Blanche auris DNA Not Detected Not Detected [facility] Comment: Interpretive Data Testing performed by [facility] Molecular Infectious Disease Laboratory using the Daquan flaquita 6800 Blanche auris assay. This assay detects DNA from Blanche auris using Real-Time PCR. This assay is laboratory developed and is not cleared by the [facility] Food and Drug Administration. The performance characteristics have been verified by the [facility] Molecular Infectious Disease Laboratory. Axilla/Groin 01/12/2025 6:27 PM CDT 01/12/2025 6:35 PM CDT N[facility]ative [facility] - 01/13/2025 12:31 PM CDT Order placed by [facility] due to ring surveillance. Instant Order Generic Provider LAB MICROBIOLOGY - GENERAL ORDERABLES Final Result [facility] Department [place] [address] [facility] * (ABNORMAL) eGFR (01/12/2025 6:27 PM CDT) [facility] eGFR 50(L) >=60 mL/min/1. 73 m2 Comment: [...] CDT 01/12/2025 6:56 PM CDT Rosa Beltran [employer] DESIGNER LAB BLOOD ORDERABLES Final Re sult [facility] Department [place] [address] * (ABNORMAL) Differential, auto (01/12/2025 6:27 PM CDT) Neutrophil abs 8.03(H) 1.50 - 6.50 K/cumm Imm gran abs 0.12(H) 0.00 - 0.10 K/cumm [facility] Lymphocyte abs 0.72(L) 0.80 - 3.30 K/cumm [facility] Monocyte abs 0.27 0.20 - 0.80 K/cumm [facility] Eosinophil abs 0.13 0.00 - 0.50 K/cumm [facility] Basophil abs 0.04 0.00 - 0.10 K/cumm [facility] Neutrophil pct 86.3 % [facility] Comment: Interpretive Data Percent cell count reference ranges are not reported, since discordance with absolute values may lead to misinterpretation of CBC data. Current Interpretive Data was last revised on 2017. Imm gran pct 1.3 % [facility] Comment: Interpretive Data Percent cell count reference ranges are not reported, since discordance with absolute values may lead to misinterpretation of CBC data. Current Interpretive Data was last revised on 2017. Lymphocyte pct 7.7 % [facility] Comment: Interpretive Data Percent cell count reference ranges are not reported, since discordance with absolute values may lead to misinterpretation of CBC data. Current Interpretive Data was last revised on 2017. Monocyte pct 2.9 % [facility] Comment: Interpretive Data Percent cell count reference ranges are not reported, since discordance with absolute values may lead to misinterpretation of CBC data. Current Interpretive Data was last revised on 2017. Eosinophil pct 1.4 % [facility] Comment: Interpretive Data Percent cell count reference ranges are not reported, since discordance with absolute values may lead to misinterpretation of CBC data. Current Interpretive Data was last revised on 2017. Basophil pct 0.4 % [facility] Comment: Interpretive Data Percent cell count reference ranges are not reported, since discordance with absolute values may lead to misinterpretation of CBC data. Current Interpretive Data was last revised on 2017. Blood 01/12/2025 6:27 PM CDT 01/12/2025 6:56 PM CDT Rosa Beltran NP LAB BLOOD ORDERABLES Final Re sult [facility] Department [place] [address] * (ABNORMAL) CBC with auto differential (01/12/2025 6:27 PM CDT) WBC 9.31 3.80 - 9.90 K/cumm Hgb 8.0(L) 13.0 - 17.5 g/dL [facility] Hct 24.4(L) 38.9 - 50.3 % [facility] Plt 351 150 - 400 K/cumm [facility] MPV 10.0 9.1 - 12.3 fL [facility] RBC 2.40(L) 4.30 - 5.80 M/cumm [facility] MCV 101.7(H) 81.3 - 96.4 fL [facility] MCH 33.3 27.1 - 33.3 pg [facility] MCHC 32.8 32.3 - 35.7 g/dL [facility] RDW CV 13.9 11.1 - 14.9 % [facility] RDW SD 51.2(H) 35.7 - 48.1 fL [facility] NRBC abs 0.02(H) 0.00 - 0.01 K/cumm [facility] Blood 01/12/2025 6:27 PM CDT 01/12/2025 6:56 PM CDT Rosa Beltran [employer] DES[employer] LAB BLOOD ORDERABLES Final Re sult Performing Organization Address City/[facility]/ZIP Co de Phone Number [facility] Department [place] [address] * (ABNORMAL) Phosphorus (01/12/2025 6:27 PM CDT) Phosphorus, pl 5.2(H) 2.3 - 4.5 mg/dL Blood 01/12/2025 6:27 PM CDT 01/12/2025 6:56 PM CDT Rosa Beltran [employer] DES[employer] LAB BLOOD ORDERABLES Final Re sult [facility] Department [place] [address] * Magnesium (01/12/2025 6:27 PM CDT) Magnesium 2.0 1.4 - 2.5 mg/dL Blood 01/12/2025 6:27 PM CDT 01/12/2025 6:56 PM CDT Rosa Beltran [employer] DES[employer] LAB BLOOD ORDERABLES Final Re sult [facility] Department [place] [address] * (ABNORMAL) Basic metabolic panel (01/12/2025 6:27 PM CDT) Sodium 140 135 - 145 mmol/L Potassium, pl 5.0(H) 3.3 - 4.9 mmol/L [facility] Chloride 103 97 - 110 mmol/L [facility] CO2 27 22 - 32 mmol/L [facility] Anion gap 10 2 - 15 mmol/L [facility] BUN 46(H) 6 - 25 mg/dL [facility] Creatinine 1.46(H) 0.80 - 1.30 mg/dL [facility] Glucose 150 70 - 199 mg/dL [facility] Comment: Interpretive Data Fasting glucose >/= 126 [...] 2022. Calcium 9.4 8.5 - 10.3 mg/dL [facility] Blood 01/12/2025 6:27 PM CDT 01/12/2025 6:56 PM CDT Rosa Beltran [employer] DES[employer] LAB BLOOD ORDERABLES Final Re sult [facility]NTH[facility] MUR[facility] Department [place] [address] * (ABNORMAL) CBC without differential (01/12/2025 5:03 AM CDT) WBC 8.18 3.80 - 9.90 K/cumm Hgb 7.9(L) 13.0 - 17.5 g/dL [facility] Hct 24.1(L) 38.9 - 50.3 % [facility] Plt 355 150 - 400 K/cumm [facility] MPV 10.0 9.1 - 12.3 fL [facility] RBC 2.37(L) 4.30 - 5.80 M/cumm [facility] MCV 101.7(H) 81.3 - 96.4 fL [facility] MCH 33.3 27.1 - 33.3 pg [facility] MCHC 32.8 32.3 - 35.7 g/dL [facility] RDW CV 14.3 11.1 - 14.9 % [facility] RDW SD 53.0(H) 35.7 - 48.1 fL [facility] NRBC abs 0.00 0.00 - 0.01 K/cumm [facility] Blood 01/12/2025 5:03 AM CDT 01/12/2025 5:33 AM CDT Rosa Beltran NP LAB BLOOD ORDERABLES Final Re sult [facility] Department [place] [address] * eGFR (01/11/2025 6:25 PM CDT) eGFR [...] NP LAB BLOOD ORDERABLES Final Re sult [facility] [place] [address] * (ABNORMAL) Differential, auto (01/11/2025 6:25 PM CDT) Neutrophil abs 7.02(H) 1.50 - 6.50 K/cumm Imm gran abs 0.16(H) 0.00 - 0.10 K/cumm [facility] Lymphocyte abs 0.49(L) 0.80 - 3.30 K/cumm [facility] Monocyte abs 0.38 0.20 - 0.80 K/cumm [facility] Eosinophil abs 0.12 0.00 - 0.50 K/cumm [facility] Basophil abs 0.03 0.00 - 0.10 K/cumm [facility] Neutrophil pct 85.5 % [facility] Comment: Interpretive Data Percent cell count reference ranges are not reported, since discordance with absolute values may lead to misinterpretation of CBC data. Current Interpretive Data was last revised on 2017. Imm gran pct 2.0 % [facility] Comment: Interpretive Data Percent cell count reference ranges are not reported, since discordance with absolute values may lead to misinterpretation of CBC data. Current Interpretive Data was last revised on 2017. Lymphocyte pct 6.0 % [facility] Comment: Interpretive Data Percent cell count reference ranges are not reported, since discordance with absolute values may lead to misinterpretation of CBC data. Current Interpretive Data was last revised on 2017. Monocyte pct 4.6 % [facility] Comment: Interpretive Data Percent cell count reference ranges are not reported, since discordance with absolute values may lead to misinterpretation of CBC data. Current Interpretive Data was last revised on 2017. Eosinophil pct 1.5 % [facility] Comment: Interpretive Data Percent cell count reference ranges are not reported, since discordance with absolute values may lead to misinterpretation of CBC data. Current Interpretive Data was last revised on 2017. Basophil pct 0.4 % [facility] Comment: Interpretive Data Percent cell count reference ranges are not reported, since discordance with absolute values may lead to misinterpretation of CBC data. Current Interpretive Data was last revised on 2017. Blood 01/11/2025 6:25 PM CDT 01/11/2025 6:53 PM CDT Rosa Beltran NP LAB BLOOD ORDERABLES Final Re sult [facility] Department [place] [address] * (ABNORMAL) CBC with auto differential (01/11/2025 6:25 PM CDT) WBC 8.20 3.80 - 9.90 K/cumm Hgb 7.2(L) 13.0 - 17.5 g/dL [facility] Hct 22.2(L) 38.9 - 50.3 % [facility] Plt 301 150 - 400 K/cumm [facility] MPV 9.7 9.1 - 12.3 fL [facility] RBC 2.13(L) 4.30 - 5.80 M/cumm [facility] MCV 104.2(H) 81.3 - 96.4 fL [facility] MCH 33.8(H) 27.1 - 33.3 pg [facility] MCHC 32.4 32.3 - 35.7 g/dL [facility] RDW CV 14.2 11.1 - 14.9 % [facility] RDW SD 53.7(H) 35.7 - 48.1 fL [facility] NRBC abs 0.00 0.00 - 0.01 K/cumm [facility] Blood 01/11/2025 6:25 PM CDT 01/11/2025 6:53 PM CDT Rosa Beltran [employer] DES[employer] LAB BLOOD ORDERABLES Final Re sult Performing Organization Address [facility] Co de Phone Number [facility] [place] [address] * Type and screen (01/11/2025 6:25 PM CDT) ABO Rh A Positive Becca, indirect Negative [facility] Blood 01/11/2025 6:25 PM CDT 01/11/2025 6:53 PM CDT Narrative [facility] - 01/11/2025 7:54 PM CDT Has the patient had Daratumumab or Isatuximab in the past 6 months?->Unknown Rosa Beltran NP LAB BLOOD BANK TEST ORDERABLE S Final Result Performing Organization Address [facility] Co de Phone Number [facility] [place] [address] * Phosphorus (01/11/2025 6:25 PM CDT) Phosphorus, pl 4.1 2.3 - 4.5 mg/dL Blood 01/11/2025 6:25 PM CDT 01/11/2025 6:50 PM CDT Rosa Beltran NP LAB BLOOD ORDERABLES Final Re sult Performing Organization Address [facility] [place] [address] * (ABNORMAL) Magnesium (01/11/2025 6:25 PM CDT) Magnesium 4.2(H) 1.4 - 2.5 mg/dL Blood 01/11/2025 6:25 PM CDT 01/11/2025 6:50 PM CDT Rosa Beltran NP LAB BLOOD ORDERABLES Final Re sult Performing Organization Address City/[facility] Co de Phone Number [facility] [place] [address] * (ABNORMAL) Hepatic function panel (01/11/2025 6:25 PM CDT) Pathologist [facility] [place] Bilirubin, total 0.4 0.1 - 1.2 mg/dL Bilirubin, direct <0.2 0.1 - 0.3 mg/dL [facility] Protein, pl 5.6(L) 6.5 - 8.5 g/dL [facility] Albumin 2.7(L) 3.5 - 5.0 g/dL [facility] Alk phos 61 40 - 130 Units/L [facility] ALT 63(H) 7 - 55 Units/L [facility] AST 41 10 - 50 Units/L [facility] Blood 01/11/2025 6:25 PM CDT 01/11/2025 6:50 PM CDT Parth Dalton MD LAB BLOOD ORDERABLES Final Re sult Performing Organization Address [facility] Co de Phone Number [facility] Department [place] [address] * (ABNORMAL) Basic metabolic panel (01/11/2025 6:25 PM CDT) Pathologist [facility] [place] Sodium 141 135 - 145 mmol/L Potassium, pl 4.4 3.3 - 4.9 mmol/L [facility] Chloride 110 97 - 110 mmol/L [facility] CO2 25 22 - 32 mmol/L [facility] Anion gap 6 2 - 15 mmol/L [facility] BUN 47(H) 6 - 25 mg/dL [facility] Creatinine 1.23 0.80 - 1.30 mg/dL [facility] Glucose 136 70 - 199 mg/dL [facility] Comment: Interpretive Data Fasting glucose >/= 126 [...] 2022. Calcium 8.1(L) 8.5 - 10.3 mg/dL [facility] Blood 01/11/2025 6:25 PM CDT 01/11/2025 6:50 PM CDT Rosa Beltran NP LAB BLOOD ORDERABLES Final Re sult [facility] [place] [address] * XR Chest 1 View (01/11/2025 5:30 PM CDT) Anatomical Region Laterality Modality Body, Chest N/A Computed Radiogr aphy 01/12/2025 6:02 AM CDT Impressions 01/12/2025 6:02 AM CDT Comparison is made to prior chest radiograph dated 01/10/2025. Sternal plates are unchanged. A feeding tube courses caudally below the diaphragm, beyond the [id number]. Tip of right peripherally inserted central venous [...] courses caudally below the diaphragm, beyond the [id number]. Tip of right peripherally inserted central venous catheter terminates in the superior cavoatrial junction. There is a left atrial appendage clip. No definite pneumothorax is identified. There is mild bibasilar atelectasis. Lung volumes are small. Stable heart size. Electronically signed by: Lupe Garland M.D. Marsha Villarreal [employer] DESIGNER IMG XR PROCEDURES Final Resul t * [...] signed by: Axel Jacob M.D. Marsha Villarreal [employer] DES[employer] IMG XR PROCEDURES Final Resul t * POCT glucose (01/11/2025 11:38 AM CDT) Glucose, POC 153 70 - 199 mg/dL Blood 01/11/2025 11:3 8 AM CDT 01/11/2025 11:38 AM CDT Parth Dalton MD LAB POCT ORDERABLES - DEVICE Final Result Performing Organization Address [facility] Co de Phone Number [facility] [place] [address] * POCT glucose (01/11/2025 7:52 AM CDT) Glucose, POC 110 70 - 199 mg/dL Blood 01/11/2025 7:52 AM CDT 01/11/2025 7:52 AM CDT Parth Dalton MD LAB POCT ORDERABLES - DEVICE Final Result Performing Organization Address [facility] de Phone Number [facility] [place] [address] * POCT glucose (01/11/2025 4:11 AM CDT) Glucose, POC 107 70 - 199 mg/dL Blood 01/11/2025 4:11 AM CDT 01/11/2025 4:11 AM CDT Parth Dalton MD LAB POCT ORDERABLES - DEVICE Final Result Performing Organization Address [facility] Co de Phone Number [facility] [place] [address] * POCT glucose (01/11/2025 12:26 AM CDT) Glucose, POC 108 70 - 199 mg/dL Blood 01/11/2025 12:2 6 AM CDT 01/11/2025 12:26 AM CDT Patrh Dalton MD LAB POCT ORDERABLES - DEVICE Final Result Performing Organization Address [facility] Co de Phone Number CYNTHIA [facility] [place] [address] * (ABNORMAL) eGFR (01/10/2025 10:47 PM CDT) [...] ORDERABLES Final Re sult Performing Organization Address City/[facility]/ZIP Co de Phone Number [facility] [place] [address] * (ABNORMAL) Differential, auto (01/10/2025 10:47 PM CDT) Neutrophil abs 7.14(H) 1.50 - 6.50 K/cumm Imm gran abs 0.32(H) 0.00 - 0.10 K/cumm [facility] Lymphocyte abs 0.75(L) 0.80 - 3.30 K/cumm [facility] Monocyte abs 0.61 0.20 - 0.80 K/cumm [facility] Eosinophil abs 0.17 0.00 - 0.50 K/cumm [facility] Basophil abs 0.04 0.00 - 0.10 K/cumm [facility] Neutrophil pct 79.1 % [facility] Comment: Interpretive Data Percent cell count reference ranges are not reported, since discordance with absolute values may lead to misinterpretation of CBC data. Current Interpretive Data was last revised on 2017. Imm gran pct 3.5 % [facility] Comment: Interpretive Data Percent cell count reference ranges are not reported, since discordance with absolute values may lead to misinterpretation of CBC data. Current Interpretive Data was last revised on 2017. Lymphocyte pct 8.3 % [facility] Comment: Interpretive Data Percent cell count reference ranges are not reported, since discordance with absolute values may lead to misinterpretation of CBC data. Current Interpretive Data was last revised on 2017. Monocyte pct 6.8 % [facility] Comment: Interpretive Data Percent cell count reference ranges are not reported, since discordance with absolute values may lead to misinterpretation of CBC data. Current Interpretive Data was last revised on 2017. Eosinophil pct 1.9 % [facility] Comment: Interpretive Data Percent cell count reference ranges are not reported, since discordance with absolute values may lead to misinterpretation of CBC data. Current Interpretive Data was last revised on 2017. Basophil pct 0.4 % [facility] Comment: Interpretive Data Percent cell count reference ranges are not reported, since discordance with absolute values may lead to misinterpretation of CBC data. Current Interpretive Data was last revised on 2017. Blood 01/10/2025 10:4 7 PM CDT 01/10/2025 11:23 PM CDT Rosa Beltran [employer] DES[employer] LAB BLOOD ORDERABLES Final Re sult Performing Organization Address City/[facility]/ZIP Co de Phone Number CYNTHIA [facility] [place] [address] * (ABNORMAL) CBC with auto differential (01/10/2025 10:47 PM CDT) [facility] WBC 9.03 3.80 - 9.90 K/cumm Hgb 8.2(L) 13.0 - 17.5 g/dL [facility] Hct 25.1(L) 38.9 - 50.3 % [facility] Plt 357 150 - 400 K/cumm [facility] MPV 9.8 9.1 - 12.3 fL [facility] RBC 2.47(L) 4.30 - 5.80 M/cumm [facility] MCV 101.6(H) 81.3 - 96.4 fL [facility] MCH 33.2 27.1 - 33.3 pg [facility] MCHC 32.7 32.3 - 35.7 g/dL [facility] RDW CV 14.5 11.1 - 14.9 % [facility] RDW SD 53.6(H) 35.7 - 48.1 fL [facility] NRBC abs 0.00 0.00 - 0.01 K/cumm [facility] Blood 01/10/2025 10:4 7 PM CDT 01/10/2025 11:23 PM CDT Rosa Beltran [employer] DES[employer] LAB BLOOD ORDERABLES Final Re sult CYN[facility]IA [facility] [place] [address] * (ABNORMAL) Phosphorus (01/10/2025 10:47 PM CDT) Phosphorus, pl 5.5(H) 2.3 - 4.5 mg/dL Blood 01/10/2025 10:4 7 PM CDT 01/10/2025 11:23 PM CDT Rosa Beltran LAB BLOOD ORDERABLES Final Re sult Performing Organization Address City/[facility]/ZIP Co de Phone Number [facility] [place] [address] * Magnesium (01/10/2025 10:47 PM CDT) Pathologist [facility] [place] Magnesium 2.3 1.4 - 2.5 mg/dL Blood 01/10/2025 10:4 7 PM CDT 01/10/2025 11:23 PM CDT [facility] Final Re sult Performing Organization Address [facility] de Phone Number [facility] [place] [address] * (ABNORMAL) Basic metabolic panel (01/10/2025 10:47 PM CDT) [facility] Sodium 143 135 - 145 mmol/L Potassium, pl 4.7 3.3 - 4.9 mmol/L [facility] Chloride 106 97 - 110 mmol/L [facility] CO2 28 22 - 32 mmol/L [facility] Anion gap 9 2 - 15 mmol/L [facility] BUN 57(H) 6 - 25 mg/dL [facility] Creatinine 1.61(H) 0.80 - 1.30 mg/dL [facility] Glucose 106 70 - 199 mg/dL [facility] Comment: Interpretive Data Fasting glucose >/= 126 [...] 2022. Calcium 9.6 8.5 - 10.3 mg/dL [facility] Blood 01/10/2025 10:4 7 PM CDT 01/10/2025 11:23 PM CDT Rosa Beltran NP LAB BLOOD ORDERABLES Final Re sult Performing Organization Address City/[facility]/ZIP Co de Phone Number [facility] [place] [address] * POCT glucose (01/10/2025 8:17 PM CDT) Glucose, POC 106 70 - 199 mg/dL Blood 01/10/2025 8:17 PM CDT 01/10/2025 8:17 PM CDT Parth Dalton MD LAB POCT ORDERABLES - DEVICE Final Result Performing Organization Address [facility] Co de Phone Number [facility] [place] [address] * POCT glucose (01/10/2025 4:49 PM CDT) Glucose, POC 146 70 - 199 mg/dL Blood 01/10/2025 4:49 PM CDT 01/10/2025 4:49 PM CDT Parth Dalton MD LAB POCT ORDERABLES - DEVICE Final Result Performing Organization Address [facility] Co de Phone Number [facility] [place] [address] * FL Modified Barium Swallow W Video [...] by: Axel Jacob M.D. us Marci Rater [employer] DESIGNER IMG FLUOROSCOPY PROCEDURES Final Result * GAS CUTTER Evaluate and Treat (VFSS) (01/10/2025 3:43 PM [...] regular liquids General Information Megan Titus 01/10/25 GAS CUTTER Received On: 01/10/25 General Observations: alert, cooperative. [...] Diet Solids Recommendation: Regular Diet Liquids Recommendations: Isabela thick Recommended Form of Medications: As tolerated [...] at 90 degrees. Consistencies Administered: Thin liquids, Isabela thickened liquids, Purees, Solids Administered consistencies contain barium product. Thin Liquids: Laryngeal Penetration: Present Aspiration Present: Yes Timing: During, After Amount: Trace Response to aspiration: None Penetration Aspiration Scale-Thin: 8-Material enters the airway, passes below the vocal folds and no effort is made to eject Isabela Thickened Liquids: Laryngeal Penetration: None Aspiration Present: No Penetration Aspiration Scale-Isabela: 1-Material does not enter airway Purees: Laryngeal [...] had appropriate questions which were answered. Plan GAS CUTTER Frequency of Services during current admission: 1-2x/wk GAS CUTTER Recommendation (Add'l Services): (may not require GAS CUTTER at d/c) Next Visit Plan: treatment/therapy Additional Referrals: Discharge Summary Statement If this is the last swallow therapy visit, this serves as the discharge summary. us Marci Prasad [employer] DESIGNER GAS CUTTER ORDERABLES Final Result * XR Chest 1 [...] the hemidiaphragm and terminates out of the [id number]. Stable trace left apical pneumothorax. No definitive [...] the hemidiaphragm and terminates out of the [id number]. Stable trace left apical pneumothorax. No definitive [...] signed by: Magnus Farah M.D. Marsha Villarreal [employer] DESIGNER IMG XR PROCEDURES Final Resul t * POCT glucose (01/10/2025 12:46 PM CDT) Glucose, POC 103 70 - 199 mg/dL Blood 01/10/2025 12:4 6 PM CDT 01/10/2025 12:46 PM CDT Parth Dalton MD LAB POCT ORDERABLES - DEVICE Final Result Performing Organization Address [facility] Co de Phone Number [facility] Department [place] [address] * POCT glucose (01/10/2025 8:05 AM CDT) Glucose, POC 108 70 - 199 mg/dL Blood 01/10/2025 8:05 AM CDT 01/10/2025 8:05 AM CDT Result [facility] Parth Dalton MD LAB POCT ORDERABLES - DEVICE Final Result Performing Organization Address [facility] de Phone Number [facility] Department [place] [address] * POCT glucose (01/10/2025 4:33 AM CDT) Glucose, POC 106 70 - 199 mg/dL Blood 01/10/2025 4:33 AM CDT 01/10/2025 4:33 AM CDT Parth Dalton MD LAB POCT ORDERABLES - DEVICE Final Result Performing Organization Address [facility] Co de Phone Number [facility] [place] [address] * (ABNORMAL) POCT glucose (01/10/2025 4:31 AM CDT) Glucose, POC 65(L) 70 - 199 mg/dL Blood 01/10/2025 4:31 AM CDT 01/10/2025 4:31 AM CDT Parth Dalton MD LAB POCT ORDERABLES - DEVICE Final Result Performing Organization Address [facility] [place] [address] * POCT glucose (01/10/2025 12:44 AM CDT) Glucose, POC 138 70 - 199 mg/dL Blood 01/10/2025 12:4 4 AM CDT 01/10/2025 12:44 AM CDT Parth Dalton MD LAB POCT ORDERABLES - DEVICE Final Result Performing Organization Address [facility] [place] [address] * (ABNORMAL) POCT glucose (01/10/2025 12:25 AM CDT) Glucose, POC 56(L) 70 - 199 mg/dL Blood 01/10/2025 12:2 5 AM CDT 01/10/2025 12:25 AM CDT us Parth Dalton MD LAB POCT ORDERABLES - DEVICE Final Result Performing Organization Address City/[facility] [place] [address] * (ABNORMAL) POCT glucose (01/09/2025 11:51 PM CDT) Glucose, POC 60(L) 70 - 199 mg/dL Blood 01/09/2025 11:5 1 PM CDT 01/09/2025 11:51 PM CDT Parth Dalton MD LAB POCT ORDERABLES - DEVICE Final Result Performing Organization Address [facility] Co de Phone Number CYNTHIA [facility] Department [place] [address] * (ABNORMAL) eGFR (01/09/2025 9:03 PM CDT) Pathologist [facility] [place] eGFR 45(L) >=60 mL/min/1. 73 m2 Comment: [...] ORDERABLES Final Re sult Performing Organization Address City/[facility]/ZIP Co de Phone Number [facility] [place] [address] * (ABNORMAL) Differential, auto (01/09/2025 9:03 PM CDT) Neutrophil abs 6.18 1.50 - 6.50 K/cumm Imm gran abs 0.53(H) 0.00 - 0.10 K/cumm [facility] Lymphocyte abs 0.77(L) 0.80 - 3.30 K/cumm [facility] Monocyte abs 0.58 0.20 - 0.80 K/cumm [facility] Eosinophil abs 0.25 0.00 - 0.50 K/cumm [facility] Basophil abs 0.03 0.00 - 0.10 K/cumm [facility] Neutrophil pct 74.0 % [facility] Comment: Interpretive Data Percent cell count reference ranges are not reported, since discordance with absolute values may lead to misinterpretation of CBC data. Current Interpretive Data was last revised on 2017. Imm gran pct 6.4 % [facility] Comment: Interpretive Data Percent cell count reference ranges are not reported, since discordance with absolute values may lead to misinterpretation of CBC data. Current Interpretive Data was last revised on 2017. Lymphocyte pct 9.2 % [facility] Comment: Interpretive Data Percent cell count reference ranges are not reported, since discordance with absolute values may lead to misinterpretation of CBC data. Current Interpretive Data was last revised on 2017. Monocyte pct 7.0 % [facility] Comment: Interpretive Data Percent cell count reference ranges are not reported, since discordance with absolute values may lead to misinterpretation of CBC data. Current Interpretive Data was last revised on 2017. Eosinophil pct 3.0 % [facility] Comment: Interpretive Data Percent cell count reference ranges are not reported, since discordance with absolute values may lead to misinterpretation of CBC data. Current Interpretive Data was last revised on 2017. Basophil pct 0.4 % [facility] Comment: Interpretive Data Percent cell count reference ranges are not reported, since discordance with absolute values may lead to misinterpretation of CBC data. Current Interpretive Data was last revised on 2017. Blood 01/09/2025 9:03 PM CDT 01/09/2025 9:15 PM CDT Rosa Beltran [employer] LAB BLOOD ORDERABLES Final Re sult [facility] [place] [address] * (ABNORMAL) CBC with auto differential (01/09/2025 9:03 PM CDT) WBC 8.34 3.80 - 9.90 K/cumm Hgb 8.5(L) 13.0 - 17.5 g/dL [facility] Hct 26.0(L) 38.9 - 50.3 % [facility] Plt 337 150 - 400 K/cumm [facility] MPV 9.5 9.1 - 12.3 fL [facility] RBC 2.53(L) 4.30 - 5.80 M/cumm [facility] MCV 102.8(H) 81.3 - 96.4 fL [facility] MCH 33.6(H) 27.1 - 33.3 pg [facility] MCHC 32.7 32.3 - 35.7 g/dL [facility] RDW CV 14.7 11.1 - 14.9 % [facility] RDW SD 54.9(H) 35.7 - 48.1 fL [facility] NRBC abs 0.03(H) 0.00 - 0.01 K/cumm [facility] Blood 01/09/2025 9:03 PM CDT 01/09/2025 9:15 PM CDT Rosa Beltran NP LAB BLOOD ORDERABLES Final Re sult [facility] Department [place] [address] * Phosphorus (01/09/2025 9:03 PM CDT) Phosphorus, pl 4.5 2.3 - 4.5 mg/dL Blood 01/09/2025 9:03 PM CDT 01/09/2025 9:15 PM CDT Rosa Beltran [employer] LAB BLOOD ORDERABLES Final Re sult Performing Organization Address City/[facility]/ZIP Co de Phone Number [facility] Department [place] [address] * Magnesium (01/09/2025 9:03 PM CDT) Pathologist [facility] [place] Magnesium 2.1 1.4 - 2.5 mg/dL Blood 01/09/2025 9:03 PM CDT 01/09/2025 9:15 PM CDT Rosa [facility] LAB BLOOD ORDERABLES Final Re sult Performing Organization Address [facility] Co de Phone Number [facility] [place] [address] * (ABNORMAL) Basic metabolic panel (01/09/2025 9:03 PM CDT) [facility] Sodium 145 135 - 145 mmol/L Potassium, pl 4.5 3.3 - 4.9 mmol/L [facility] Chloride 108 97 - 110 mmol/L [facility] CO2 28 22 - 32 mmol/L [facility] Anion gap 9 2 - 15 mmol/L [facility] BUN 56(H) 6 - 25 mg/dL [facility] Creatinine 1.61(H) 0.80 - 1.30 mg/dL [facility] Glucose 116 70 - 199 mg/dL [facility] Comment: Interpretive Data Fasting glucose >/= 126 [...] 2022. Calcium 9.9 8.5 - 10.3 mg/dL [facility] Blood 01/09/2025 9:03 PM CDT 01/09/2025 9:15 PM CDT Rosa Beltran NP LAB BLOOD ORDERABLES Final Re sult Performing Organization Address City/[facility]/ZIP Co de Phone Number [facility] Department [place] [address] * POCT glucose (01/09/2025 8:21 PM CDT) Glucose, POC 87 70 - 199 mg/dL Blood 01/09/2025 8:21 PM CDT 01/09/2025 8:21 PM CDT Parth Dalton MD LAB POCT ORDERABLES - DEVICE Final Result Performing Organization Address [facility] Co de Phone Number [facility] Department [place] [address] * XR Chest 1 View (01/09/2025 5:44 [...] by: Jan Myers M.D. us Gloria Ledezma [employer] IMG XR PROCEDURES Raquel l Result * Potassium, whole blood (01/09/2025 5:26 PM CDT) Potassium, bld 4.6 3.3 - 4.9 mmol/L Blood 01/09/2025 5:26 PM CDT 01/09/2025 5:34 PM CDT Jyotsna Salazar [employer] LAB BLOOD ORDERABLES Final Result Performing Organization Address [facility] Co de Phone Number [facility] [place] [address] * POCT glucose (01/09/2025 5:22 PM CDT) Glucose, POC 116 70 - 199 mg/dL Blood 01/09/2025 5:22 PM CDT 01/09/2025 5:22 PM CDT Parth Dalton MD LAB POCT ORDERABLES - DEVICE Final Result Performing Organization Address [facility] Co de Phone Number [facility] Department [place] [address] * POCT glucose (01/09/2025 1:00 PM CDT) Glucose, POC 105 70 - 199 mg/dL Blood 01/09/2025 1:00 PM CDT 01/09/2025 1:00 PM CDT Result [facility] Parth Dalton MD LAB POCT ORDERABLES - DEVICE Final Result Performing Organization Address [facility] Co de Phone Number [facility] Department [place] [address] * (ABNORMAL) Protime-INR (01/09/2025 9:38 AM CDT) [facility] PT 14.7(H) 10.2 - 13.5 sec INR 1.31(H) 0.90 - 1.20 [facility] Comment: Interpretive data Oral anticoagulant therapeutic ranges: Venous thromboembolism prophylaxis or treatment: 2.0-3.0 CARDIOLOGY Standard range: 2.0-3.0 High-intensity range: 2.5-3.5 Refer to indication-specific guidelines for appropriate target ranges for prosthetic heart valve replacement. Current interpretive data was last revised on 2019. Blood 01/09/2025 9:38 AM CDT 01/09/2025 10:52 AM CDT Narrative [facility] - 01/09/2025 11:01 AM CDT Baseline prior to apixaban initiation. Result [facility] Gloria Ledezma NP LAB BLOOD ORDERABLES F inal Result Performing Organization Address [facility] Co de Phone Number [facility] Department [place] [address] * POCT glucose (01/09/2025 8:16 AM CDT) Glucose, POC 81 70 - 199 mg/dL Blood 01/09/2025 8:16 AM CDT 01/09/2025 8:16 AM CDT Parth Dalton MD LAB POCT ORDERABLES - DEVICE Final Result [facility]IA [facility] Department [place] [address] * XR Chest 1 View (01/09/2025 7:44 AM CDT) Anatomical Region Laterality Modality Body, Chest N/A Computed Radiogr aphy 01/09/2025 10:1 0 AM CDT Impressions 01/09/2025 10:25 AM CDT Comparison is made with multiple prior exams, most recently radiograph dated 01/08/2025. Tracheostomy in place. Feeding tube projects over the stomach, distal tip is out of the [id number]. Right upper extremity peripheral inserted central venous [...] stomach, distal tip is out of the [id number]. Right upper extremity peripheral inserted central venous [...] by: Lupe Garland M.D. us Gloria Ledezma [employer] IMG XR PROCEDURES Raquel l Result * Infection Prevention Blanche auris PCR, surveillance Axilla/Groin (01/09/2025 5:56 AM CDT) Blanche auris DNA Not Detected Not Detected [facility] Comment: Interpretive Data Testing performed by [facility] Molecular Infectious Disease Laboratory using the Daquan flaquita 6800 Blanche auris assay. This assay detects DNA from Blanche auris using Real-Time PCR. This assay is laboratory developed and is not cleared by the [facility] Food and Drug Administration. The performance characteristics have been verified by the [facility] Molecular Infectious Disease Laboratory. Axilla/Groin 01/09/2025 5:56 AM CDT 01/09/2025 7:32 AM CDT Narrative [facility] - 01/09/2025 2:13 PM CDT Order placed by [facility] due to ring surveillance. us Instant Order Generic Provider LAB MICROBIOLOGY - GENERAL ORDERABLES Final Result [facility] Department [place] [address] [facility] * Potassium, whole blood (01/09/2025 4:36 AM CDT) Potassium, bld 3.7 3.3 - 4.9 mmol/L Blood 01/09/2025 4:36 AM CDT 01/09/2025 5:34 AM CDT us Jyotsna Salazar [employer] LAB BLOOD ORDERABLES Final Result [facility] Department [place] [address] * POCT glucose (01/09/2025 4:36 AM CDT) Pathologist [facility] [place] Glucose, POC 98 70 - 199 mg/dL Blood 01/09/2025 4:36 AM CDT 01/09/2025 4:36 AM CDT us Parth Dalton MD LAB POCT ORDERABLES - DEVICE Final Result Performing Organization Address [facility] Co de Phone Number [facility] [place] [address] * (ABNORMAL) eGFR (01/09/2025 4:31 AM CDT) [facility] eGFR 43(L) >=60 mL/min/1. 73 m2 Comment: [...] BLOOD ORDERABLES Final Result Performing Organization Address City/[facility]/ZIP Co de Phone Number [facility] Department [place] [address] * (ABNORMAL) Basic metabolic panel (01/09/2025 4:31 AM CDT) Pathologist [facility] [place] Sodium 144 135 - 145 mmol/L Potassium, pl 3.8 3.3 - 4.9 mmol/L [facility] Chloride 106 97 - 110 mmol/L [facility] CO2 29 22 - 32 mmol/L [facility] Anion gap 9 2 - 15 mmol/L [facility] BUN 55(H) 6 - 25 mg/dL [facility] Creatinine 1.65(H) 0.80 - 1.30 mg/dL [facility] Glucose 91 70 - 199 mg/dL [facility] Comment: Interpretive Data Fasting glucose >/= 126 [...] 2022. Calcium 9.7 8.5 - 10.3 mg/dL [facility] Blood 01/09/2025 4:31 AM CDT 01/09/2025 5:43 AM CDT Leisa Ling NP LAB BLOOD ORDERABLES Final Result CYNTHIA MURPHY [facility] Department [place] [address] * POCT glucose (01/09/2025 12:27 AM CDT) [facility] Glucose, POC 87 70 - 199 mg/dL Blood 01/09/2025 12:2 7 AM CDT 01/09/2025 12:27 AM CDT Parth Dalton MD LAB POCT ORDERABLES - DEVICE Final Result Performing Organization Address [facility] Co de Phone Number [facility] [place] [address] * Potassium, whole blood (01/08/2025 8:15 PM CDT) Pathologist [facility] [place] Potassium, bld 4.1 3.3 - 4.9 mmol/L Blood 01/08/2025 8:15 PM CDT 01/08/2025 8:24 PM CDT us Jyotsna Salazar [employer] LAB BLOOD ORDERABLES Final Result Performing Organization Address [facility] Co de Phone Number [facility] [place] [address] * POCT glucose (01/08/2025 8:12 PM CDT) [facility] Glucose, POC 98 70 - 199 mg/dL Blood 01/08/2025 8:12 PM CDT 01/08/2025 8:12 PM CDT Parth Dalton MD LAB POCT ORDERABLES - DEVICE Final Result Performing Organization Address [facility] de Phone Number [facility] [place] [address] * (ABNORMAL) eGFR (01/08/2025 8:11 PM CDT) [...] NP LAB BLOOD ORDERABLES Final Re sult [facility] Department [place] [address] * (ABNORMAL) Differential, auto (01/08/2025 8:11 PM CDT) Pathologist [facility] [place] Neutrophil abs 5.80 1.50 - 6.50 K/cumm Imm gran abs 0.44(H) 0.00 - 0.10 K/cumm [facility] Lymphocyte abs 0.78(L) 0.80 - 3.30 K/cumm [facility] Monocyte abs 0.76 0.20 - 0.80 K/cumm [facility] Eosinophil abs 0.23 0.00 - 0.50 K/cumm [facility] Basophil abs 0.03 0.00 - 0.10 K/cumm [facility] Neutrophil pct 72.0 % [facility] Comment: Interpretive Data Percent cell count reference ranges are not reported, since discordance with absolute values may lead to misinterpretation of CBC data. Current Interpretive Data was last revised on 2017. Imm gran pct 5.5 % [facility] Comment: Interpretive Data Percent cell count reference ranges are not reported, since discordance with absolute values may lead to misinterpretation of CBC data. Current Interpretive Data was last revised on 2017. Lymphocyte pct 9.7 % [facility] Comment: Interpretive Data Percent cell count reference ranges are not reported, since discordance with absolute values may lead to misinterpretation of CBC data. Current Interpretive Data was last revised on 2017. Monocyte pct 9.5 % [facility] Comment: Interpretive Data Percent cell count reference ranges are not reported, since discordance with absolute values may lead to misinterpretation of CBC data. Current Interpretive Data was last revised on 2017. Eosinophil pct 2.9 % [facility] Comment: Interpretive Data Percent cell count reference ranges are not reported, since discordance with absolute values may lead to misinterpretation of CBC data. Current Interpretive Data was last revised on 2017. Basophil pct 0.4 % [facility] Comment: Interpretive Data Percent cell count reference ranges are not reported, since discordance with absolute values may lead to misinterpretation of CBC data. Current Interpretive Data was last revised on 2017. Blood 01/08/2025 8:11 PM CDT 01/08/2025 8:28 PM CDT Rosa Beltran NP LAB BLOOD ORDERABLES Final Re sult [facility] Department [place] [address] * (ABNORMAL) CBC with auto differential (01/08/2025 8:11 PM CDT) WBC 8.04 3.80 - 9.90 K/cumm Hgb 8.6(L) 13.0 - 17.5 g/dL [facility] Hct 26.2(L) 38.9 - 50.3 % [facility] Plt 325 150 - 400 K/cumm [facility] MPV 9.2 9.1 - 12.3 fL [facility] RBC 2.57(L) 4.30 - 5.80 M/cumm [facility] MCV 101.9(H) 81.3 - 96.4 fL [facility] MCH 33.5(H) 27.1 - 33.3 pg [facility] MCHC 32.8 32.3 - 35.7 g/dL [facility] RDW CV 15.0(H) 11.1 - 14.9 % [facility] RDW SD 56.0(H) 35.7 - 48.1 fL [facility] NRBC abs 0.03(H) 0.00 - 0.01 K/cumm [facility] Blood 01/08/2025 8:11 PM CDT 01/08/2025 8:28 PM CDT Rosa Beltran LAB BLOOD ORDERABLES Final Re sult Performing Organization Address [facility] [place] [address] * Type and screen (01/08/2025 8:11 PM CDT) Becca, indirect Negative ABO Rh A Positive [facility] Blood 01/08/2025 8:11 PM CDT 01/08/2025 8:34 PM CDT Narrative [facility] - 01/08/2025 9:31 PM CDT Has the patient had Daratumumab or Isatuximab in the past 6 months?->Unknown [facility] BLOOD BANK TEST ORDERABLE S Final Result Performing Organization Address [facility] de Phone Number [facility] [place] [address] * (ABNORMAL) Phosphorus (01/08/2025 8:11 PM CDT) Phosphorus, pl 4.6(H) 2.3 - 4.5 mg/dL Blood 01/08/2025 8:11 PM CDT 01/08/2025 8:26 PM CDT [facility] BLOOD ORDERABLES Final Re sult Performing Organization Address [facility] de Phone Number [facility] Department [place] [address] * Magnesium (01/08/2025 8:11 PM CDT) [facility] Magnesium 2.1 1.4 - 2.5 mg/dL Blood 01/08/2025 8:11 PM CDT 01/08/2025 8:26 PM CDT Rosa Beltran NP LAB BLOOD ORDERABLES Final Re sult [facility] [place] [address] * (ABNORMAL) Hepatic function panel (01/08/2025 8:11 PM CDT) [facility] Bilirubin, total 0.5 0.1 - 1.2 mg/dL Bilirubin, direct 0.2 0.1 - 0.3 mg/dL [facility] Protein, pl 6.5 6.5 - 8.5 g/dL [facility] Albumin 3.2(L) 3.5 - 5.0 g/dL [facility] Alk phos 54 40 - 130 Units/L [facility] ALT 73(H) 7 - 55 Units/L [facility] AST 52(H) 10 - 50 Units/L [facility] Blood 01/08/2025 8:11 PM CDT 01/08/2025 8:26 PM CDT Parth Dalton MD LAB BLOOD ORDERABLES Final Re sult [facility] Department [place] [address] * (ABNORMAL) Basic metabolic panel (01/08/2025 8:11 PM CDT) Pathologist [facility] [place] Sodium 150(H) 135 - 145 mmol/L Potassium, pl 4.3 3.3 - 4.9 mmol/L [facility] Chloride 111(H) 97 - 110 mmol/L [facility] CO2 27 22 - 32 mmol/L [facility] Anion gap 12 2 - 15 mmol/L [facility] BUN 52(H) 6 - 25 mg/dL [facility] Creatinine 1.55(H) 0.80 - 1.30 mg/dL [facility] Glucose 97 70 - 199 mg/dL [facility] Comment: Interpretive Data Fasting glucose >/= 126 [...] 2022. Calcium 9.7 8.5 - 10.3 mg/dL [facility] Blood 01/08/2025 8:11 PM CDT 01/08/2025 8:26 PM CDT us Rosa Beltran NP LAB BLOOD ORDERABLES Final Re sult [facility] Department [place] [address] * POCT glucose (01/08/2025 4:11 PM CDT) [facility] Glucose, POC 124 70 - 199 mg/dL Blood 01/08/2025 4:11 PM CDT 01/08/2025 4:11 PM CDT Parth Dalton MD LAB POCT ORDERABLES - DEVICE Final Result [facility] Department [place] [address] * XR Chest 1 View (01/08/2025 1:18 [...] signed by: Mikey Bender M.D. Gloria Ledezma [employer] IMG XR PROCEDURES Edit ed Result - Final * POCT glucose (01/08/2025 11:59 AM CDT) Glucose, POC 120 70 - 199 mg/dL Blood 01/08/2025 11:5 9 AM CDT 01/08/2025 11:59 AM CDT Parth Dalton MD LAB POCT ORDERABLES - DEVICE Final Result Performing Organization Address City/[facility] Co de Phone Number [facility] [place] [address] * POCT glucose (01/08/2025 7:34 AM CDT) Glucose, POC 75 70 - 199 mg/dL Blood 01/08/2025 7:34 AM CDT 01/08/2025 7:34 AM CDT Parth Dalton MD LAB POCT ORDERABLES - DEVICE Final Result Performing Organization Address [facility] Co de Phone Number [facility] [place] [address] * POCT glucose (01/08/2025 4:18 AM CDT) Glucose, POC 95 70 - 199 mg/dL Blood 01/08/2025 4:18 AM CDT 01/08/2025 4:18 AM CDT Parth Dalton MD LAB POCT ORDERABLES - DEVICE Final Result Performing Organization Address [facility] Co de Phone Number [facility] [place] [address] * POCT glucose (01/07/2025 11:30 PM CDT) Glucose, POC 94 70 - 199 mg/dL Blood 01/07/2025 11:3 0 PM CDT 01/07/2025 11:30 PM CDT Parth Dalton MD LAB POCT ORDERABLES - DEVICE Final Result Performing Organization Address [facility] Co de Phone Number CYNTHIA [facility] Department [place] [address] * (ABNORMAL) eGFR (01/07/2025 8:57 PM CDT) [...] ORDERABLES Final Re sult Performing Organization Address City/[facility]/ZIP Co de Phone Number [facility] [place] [address] * (ABNORMAL) Differential, auto (01/07/2025 8:57 PM CDT) Neutrophil abs 6.34 1.50 - 6.50 K/cumm Imm gran abs 0.46(H) 0.00 - 0.10 K/cumm [facility] Lymphocyte abs 0.85 0.80 - 3.30 K/cumm [facility] Monocyte abs 0.59 0.20 - 0.80 K/cumm [facility] Eosinophil abs 0.21 0.00 - 0.50 K/cumm [facility] Basophil abs 0.04 0.00 - 0.10 K/cumm [facility] Neutrophil pct 74.7 % [facility] Comment: Interpretive Data Percent cell count reference ranges are not reported, since discordance with absolute values may lead to misinterpretation of CBC data. Current Interpretive Data was last revised on 2017. Imm gran pct 5.4 % [facility] Comment: Interpretive Data Percent cell count reference ranges are not reported, since discordance with absolute values may lead to misinterpretation of CBC data. Current Interpretive Data was last revised on 2017. Lymphocyte pct 10.0 % [facility] Comment: Interpretive Data Percent cell count reference ranges are not reported, since discordance with absolute values may lead to misinterpretation of CBC data. Current Interpretive Data was last revised on 2017. Monocyte pct 6.9 % [facility] Comment: Interpretive Data Percent cell count reference ranges are not reported, since discordance with absolute values may lead to misinterpretation of CBC data. Current Interpretive Data was last revised on 2017. Eosinophil pct 2.5 % [facility] Comment: Interpretive Data Percent cell count reference ranges are not reported, since discordance with absolute values may lead to misinterpretation of CBC data. Current Interpretive Data was last revised on 2017. Basophil pct 0.5 % [facility] Comment: Interpretive Data Percent cell count reference ranges are not reported, since discordance with absolute values may lead to misinterpretation of CBC data. Current Interpretive Data was last revised on 2017. Blood 01/07/2025 8:57 PM CDT 01/07/2025 9:37 PM CDT Rosa Beltran NP LAB BLOOD ORDERABLES Final Re sult [facility] Department [place] [address] * (ABNORMAL) CBC with auto differential (01/07/2025 8:57 PM CDT) Pathologist [facility] [place] WBC 8.49 3.80 - 9.90 K/cumm Hgb 9.2(L) 13.0 - 17.5 g/dL [facility] Hct 27.9(L) 38.9 - 50.3 % [facility] Plt 345 150 - 400 K/cumm [facility] MPV 9.5 9.1 - 12.3 fL [facility] RBC 2.71(L) 4.30 - 5.80 M/cumm [facility] MCV 103.0(H) 81.3 - 96.4 fL [facility] MCH 33.9(H) 27.1 - 33.3 pg [facility] MCHC 33.0 32.3 - 35.7 g/dL [facility] RDW CV 15.3(H) 11.1 - 14.9 % [facility] RDW SD 56.9(H) 35.7 - 48.1 fL [facility] NRBC abs 0.04(H) 0.00 - 0.01 K/cumm [facility] Blood 01/07/2025 8:57 PM CDT 01/07/2025 9:37 PM CDT Rosa Beltran NP LAB BLOOD ORDERABLES Final Re sult [facility] Department [place] [address] * (ABNORMAL) Phosphorus (01/07/2025 8:57 PM CDT) Pathologist [facility] [place] Phosphorus, pl 4.7(H) 2.3 - 4.5 mg/dL Blood 01/07/2025 8:57 PM CDT 01/07/2025 9:37 PM CDT Rosa Beltran LAB BLOOD ORDERABLES Final Re sult [facility] [place] [address] * Magnesium (01/07/2025 8:57 PM CDT) Pathologist [facility] [place] Magnesium 2.2 1.4 - 2.5 mg/dL Blood 01/07/2025 8:57 PM CDT 01/07/2025 9:37 PM CDT [facility] BLOOD ORDERABLES Final Re sult Performing Organization Address [facility] de Phone Number [facility] Department [place] [address] * (ABNORMAL) Basic metabolic panel (01/07/2025 8:57 PM CDT) [facility] Sodium 146(H) 135 - 145 mmol/L Potassium, pl 3.9 3.3 - 4.9 mmol/L [facility] Chloride 109 97 - 110 mmol/L [facility] CO2 26 22 - 32 mmol/L [facility] Anion gap 11 2 - 15 mmol/L [facility] BUN 56(H) 6 - 25 mg/dL [facility] Creatinine 1.67(H) 0.80 - 1.30 mg/dL [facility] Glucose 120 70 - 199 mg/dL [facility] Comment: Interpretive Data Fasting glucose >/= 126 [...] 2022. Calcium 9.8 8.5 - 10.3 mg/dL [facility] Blood 01/07/2025 8:57 PM CDT 01/07/2025 9:37 PM CDT Rosa Beltran NP LAB BLOOD ORDERABLES Final Re sult Performing Organization Address [facility] de Phone Number [facility] [place] [address] * POCT glucose (01/07/2025 8:56 PM CDT) Glucose, POC 117 70 - 199 mg/dL Blood 01/07/2025 8:56 PM CDT 01/07/2025 8:56 PM CDT Parth Dalton MD LAB POCT ORDERABLES - DEVICE Final Result Performing Organization Address [facility] de Phone Number [facility] [place] [address] * POCT glucose (01/07/2025 7:47 PM CDT) Glucose, POC 96 70 - 199 mg/dL Blood 01/07/2025 7:47 PM CDT 01/07/2025 7:47 PM CDT Parth Dalton MD LAB POCT ORDERABLES - DEVICE Final Result Performing Organization Address [facility] de Phone Number [facility] [place] [address] * POCT glucose (01/07/2025 4:21 PM CDT) Glucose, POC 127 70 - 199 mg/dL Blood 01/07/2025 4:21 PM CDT 01/07/2025 4:21 PM CDT Parth Dalton MD LAB POCT ORDERABLES - DEVICE Final Result [facility] [place] [address] * XR Abdomen Ap 1 Vw (01/07/2025 [...] signed by: Vani Sarmiento M.D. Gloria Ledezma [employer] DESIGNER IMG XR PROCEDURES Raquel l Result * Infection Prevention Blanche auris PCR, surveillance Axilla/Groin (01/07/2025 2:25 PM CDT) [facility] Blanche auris DNA Not Detected Not Detected [facility] Comment: Interpretive Data Testing performed by [facility] Molecular Infectious Disease Laboratory using the Daquan flaquita 6800 Blanche auris assay. This assay detects DNA from Blanche auris using Real-Time PCR. This assay is laboratory developed and is not cleared by the [facility] Food and Drug Administration. The performance characteristics have been verified by the [facility] Molecular Infectious Disease Laboratory. Axilla/Groin 01/07/2025 2:25 PM CDT 01/07/2025 2:45 PM CDT Narrative CYNTHIA [facility] - 01/07/2025 10:52 PM CDT Order placed by [facility] due to ring surveillance. Instant Order Generic Provider LAB MICROBIOLOGY - GENERAL ORDERABLES Final Result [facility] [place] [address] [facility] * Potassium, whole blood (01/07/2025 2:25 PM CDT) [facility] Potassium, bld 4.3 3.3 - 4.9 mmol/L Blood 01/07/2025 2:25 PM CDT 01/07/2025 2:44 PM CDT Jyotsna Salazar [employer] LAB BLOOD ORDERABLES Final Result [facility] [place] [address] * POCT glucose (01/07/2025 12:03 PM CDT) [facility] Glucose, POC 131 70 - 199 mg/dL Blood 01/07/2025 12:0 3 PM CDT 01/07/2025 12:03 PM CDT us Parth Dalton MD LAB POCT ORDERABLES - DEVICE Final Result [facility] [place] [address] * POCT glucose (01/07/2025 7:34 AM CDT) Glucose, POC 147 70 - 199 mg/dL Blood 01/07/2025 7:34 AM CDT 01/07/2025 7:34 AM CDT Parth Dalton MD LAB POCT ORDERABLES - DEVICE Final Result Performing Organization Address [facility] Co de Phone Number [facility] [place] [address] * Blood culture Blood (01/07/2025 5:04 AM CDT) Report Final Report: No growth Blood 01/07/2025 5:04 AM CDT 01/07/2025 5:50 AM CDT Narrative [facility] - 01/11/2025 7:00 AM CDT Collection->Peripheral 1. [...] performance characteristics have been verified by the [facility] Microbiology Laboratory. For questions about this culture, contact the Microbiology Laboratory at [phone]. Interpretive data was last revised on 24. Rosa Beltran NP LAB MICROBIOLOGY - GENERAL OR DERABLES Final Result Performing Organization Address City/[facility]/ZIP Co de Phone Number [facility] [place] [address] * POCT glucose (01/07/2025 4:41 AM CDT) [facility] Signature Glucose, POC 117 70 - 199 mg/dL Blood 01/07/2025 4:41 AM CDT 01/07/2025 4:41 AM CDT Parth Dalton MD LAB POCT ORDERABLES - DEVICE Final Result Performing Organization Address City/[facility] Co de Phone Number [facility] [place] [address] * XR Chest 1 View (01/07/2025 4:32 [...] of clinically insignificant bacterial katja. (.) [facility]IA [facility] Organism STENOTROPHOMONAS MALTOPHILIA CYNTHIA [facility] Organism PLUS GROWTH OF CLINICALLY INSIGNIFICANT KATJA. CYNTHIA MURPHY Tracheal aspirate (Tracheal) 01/06/2025 11:41 PM CDT 01/07/2025 1:31 AM CDT Narrative CYNTHIA [facility] - 01/09/2025 2:45 PM CDT Testing performed by [facility] Microbiology Laboratory ([phone]) Specimens submitted from normally sterile body sites [...] OR DERABLES Final Result Performing Organization Address [facility] Co de Phone Number [facility] [place] [address] * Lactate, whole blood (01/06/2025 11:41 PM CDT) Lactate, bld 0.9 0.7 - 2.0 mmol/L Blood 01/06/2025 11:4 1 PM CDT 01/06/2025 11:49 PM CDT Rosa Beltran NP LAB BLOOD ORDERABLES Final Re sult Performing Organization Address [facility] Co de Phone Number [facility] [place] [address] * POCT glucose (01/06/2025 11:39 PM CDT) Glucose, POC 104 70 - 199 mg/dL Blood 01/06/2025 11:3 9 PM CDT 01/06/2025 11:39 PM CDT Parth Dalton MD LAB POCT ORDERABLES - DEVICE Final Result Performing Organization Address [facility] Co de Phone Number [facility] [place] [address] * POCT glucose (01/06/2025 9:12 PM CDT) Glucose, POC 104 70 - 199 mg/dL Blood 01/06/2025 9:12 PM CDT 01/06/2025 9:12 PM CDT Parth Dalton MD LAB POCT ORDERABLES - DEVICE Final Result Performing Organization Address [facility]/ZIP Co de Phone Number CYNTHIA [facility] [place] [address] * (ABNORMAL) eGFR (01/06/2025 9:07 PM CDT) Pathologist [facility] [place] eGFR 41(L) >=60 mL/min/1. 73 m2 Comment: [...] ORDERABLES Final Re sult Performing Organization Address City/[facility]/ZIP Co de Phone Number [facility] [place] [address] * (ABNORMAL) Differential, auto (01/06/2025 9:07 PM CDT) Neutrophil abs 4.73 1.50 - 6.50 K/cumm Imm gran abs 0.29(H) 0.00 - 0.10 K/cumm [facility] Lymphocyte abs 0.54(L) 0.80 - 3.30 K/cumm [facility] Monocyte abs 0.43 0.20 - 0.80 K/cumm [facility] Eosinophil abs 0.15 0.00 - 0.50 K/cumm [facility] Basophil abs 0.04 0.00 - 0.10 K/cumm [facility] Neutrophil pct 76.6 % [facility] Comment: Interpretive Data Percent cell count reference ranges are not reported, since discordance with absolute values may lead to misinterpretation of CBC data. Current Interpretive Data was last revised on 2017. Imm gran pct 4.7 % [facility] Comment: Interpretive Data Percent cell count reference ranges are not reported, since discordance with absolute values may lead to misinterpretation of CBC data. Current Interpretive Data was last revised on 2017. Lymphocyte pct 8.7 % [facility] Comment: Interpretive Data Percent cell count reference ranges are not reported, since discordance with absolute values may lead to misinterpretation of CBC data. Current Interpretive Data was last revised on 2017. Monocyte pct 7.0 % [facility] Comment: Interpretive Data Percent cell count reference ranges are not reported, since discordance with absolute values may lead to misinterpretation of CBC data. Current Interpretive Data was last revised on 2017. Eosinophil pct 2.4 % [facility] Comment: Interpretive Data Percent cell count reference ranges are not reported, since discordance with absolute values may lead to misinterpretation of CBC data. Current Interpretive Data was last revised on 2017. Basophil pct 0.6 % [facility] Comment: Interpretive Data Percent cell count reference ranges are not reported, since discordance with absolute values may lead to misinterpretation of CBC data. Current Interpretive Data was last revised on 2017. Blood 01/06/2025 9:07 PM CDT 01/06/2025 9:49 PM CDT Rosa Beltran NP LAB BLOOD ORDERABLES Final Re sult Performing Organization Address City/[facility]/ZIP Co de Phone Number [facility] [place] [address] * (ABNORMAL) CBC with auto differential (01/06/2025 9:07 PM CDT) Pathologist [facility] [place] WBC 6.18 3.80 - 9.90 K/cumm Hgb 11.3(L) 13.0 - 17.5 g/dL [facility] Hct 34.3(L) 38.9 - 50.3 % [facility] Plt 278 150 - 400 K/cumm [facility] MPV 9.4 9.1 - 12.3 fL [facility] RBC 3.38(L) 4.30 - 5.80 M/cumm [facility] MCV 101.5(H) 81.3 - 96.4 fL [facility] MCH 33.4(H) 27.1 - 33.3 pg [facility] MCHC 32.9 32.3 - 35.7 g/dL [facility] RDW CV 15.1(H) 11.1 - 14.9 % [facility] RDW SD 57.0(H) 35.7 - 48.1 fL [facility] NRBC abs 0.05(H) 0.00 - 0.01 K/cumm [facility] Blood 01/06/2025 9:07 PM CDT 01/06/2025 9:49 PM CDT Rosa Beltran NP LAB BLOOD ORDERABLES Final Re sult [facility] [place] [address] * Phosphorus (01/06/2025 9:07 PM CDT) Phosphorus, pl 3.9 2.3 - 4.5 mg/dL Blood 01/06/2025 9:07 PM CDT 01/06/2025 9:48 PM CDT Rosa Beltran LAB BLOOD ORDERABLES Final Re sult [facility] [place] [address] * Magnesium (01/06/2025 9:07 PM CDT) [facility] Magnesium 2.5 1.4 - 2.5 mg/dL Blood 01/06/2025 9:07 PM CDT 01/06/2025 9:48 PM CDT Rosa Beltran LAB BLOOD ORDERABLES Final Re sult Performing Organization Address [facility] Co de Phone Number [facility] [place] [address] * (ABNORMAL) Basic metabolic panel (01/06/2025 9:07 PM CDT) [facility] Sodium 144 135 - 145 mmol/L Potassium, pl 4.5 3.3 - 4.9 mmol/L [facility] Chloride 111(H) 97 - 110 mmol/L [facility] CO2 24 22 - 32 mmol/L [facility] Anion gap 9 2 - 15 mmol/L [facility] BUN 56(H) 6 - 25 mg/dL [facility] Creatinine 1.71(H) 0.80 - 1.30 mg/dL [facility] Glucose 104 70 - 199 mg/dL [facility] Comment: Interpretive Data Fasting glucose >/= 126 [...] 2022. Calcium 9.4 8.5 - 10.3 mg/dL [facility] Blood 01/06/2025 9:07 PM CDT 01/06/2025 9:48 PM CDT Rosa Beltran NP LAB BLOOD ORDERABLES Final Re sult Performing Organization Address City/[facility]/ZIP Co de Phone Number [facility] [place] [address] * POCT glucose (01/06/2025 4:12 PM CDT) Glucose, POC 94 70 - 199 mg/dL Blood 01/06/2025 4:12 PM CDT 01/06/2025 4:12 PM CDT Parth Dalton MD LAB POCT ORDERABLES - DEVICE Final Result Performing Organization Address [facility] Co de Phone Number [facility] [place] [address] * POCT glucose (01/06/2025 12:07 PM CDT) Glucose, POC 89 70 - 199 mg/dL Blood 01/06/2025 12:0 7 PM CDT 01/06/2025 12:07 PM CDT Parth Dalton MD LAB POCT ORDERABLES - DEVICE Final Result Performing Organization Address [facility] Co de Phone Number [facility] [place] [address] * XR Chest 1 View (01/06/2025 8:25 [...] signed by: Keesha Parra M.D. Marci Rater [employer] IMG XR PROCEDURES Final Result * POCT glucose (01/06/2025 7:56 AM CDT) Glucose, POC 90 70 - 199 mg/dL Blood 01/06/2025 7:56 AM CDT 01/06/2025 7:56 AM CDT Parth Dalton MD LAB POCT ORDERABLES - DEVICE Final Result [facility] [place] [address] * POCT glucose (01/06/2025 1:39 AM CDT) Pathologist [facility] [place] Glucose, POC 97 70 - 199 mg/dL Blood 01/06/2025 1:39 AM CDT 01/06/2025 1:39 AM CDT Parth Dalton MD LAB POCT ORDERABLES - DEVICE Final Result Performing Organization Address [facility] Co de Phone Number [facility] [place] [address] * (ABNORMAL) eGFR (01/05/2025 10:01 PM CDT) [facility] eGFR 31(L) >=60 mL/min/1. 73 m2 Comment: [...] ORDERABLES Final Re sult Performing Organization Address [facility]/ZIP Co de Phone Number [facility] [place] [address] * (ABNORMAL) Differential, auto (01/05/2025 10:01 PM CDT) Neutrophil abs 5.80 1.50 - 6.50 K/cumm Imm gran abs 0.17(H) 0.00 - 0.10 K/cumm [facility] Lymphocyte abs 0.59(L) 0.80 - 3.30 K/cumm [facility] Monocyte abs 0.45 0.20 - 0.80 K/cumm [facility] Eosinophil abs 0.18 0.00 - 0.50 K/cumm [facility] Basophil abs 0.03 0.00 - 0.10 K/cumm [facility] Neutrophil pct 80.3 % [facility] Comment: Interpretive Data Percent cell count reference ranges are not reported, since discordance with absolute values may lead to misinterpretation of CBC data. Current Interpretive Data was last revised on 2017. Imm gran pct 2.4 % [facility] Comment: Interpretive Data Percent cell count reference ranges are not reported, since discordance with absolute values may lead to misinterpretation of CBC data. Current Interpretive Data was last revised on 2017. Lymphocyte pct 8.2 % [facility] Comment: Interpretive Data Percent cell count reference ranges are not reported, since discordance with absolute values may lead to misinterpretation of CBC data. Current Interpretive Data was last revised on 2017. Monocyte pct 6.2 % [facility] Comment: Interpretive Data Percent cell count reference ranges are not reported, since discordance with absolute values may lead to misinterpretation of CBC data. Current Interpretive Data was last revised on 2017. Eosinophil pct 2.5 % [facility] Comment: Interpretive Data Percent cell count reference ranges are not reported, since discordance with absolute values may lead to misinterpretation of CBC data. Current Interpretive Data was last revised on 2017. Basophil pct 0.4 % [facility] Comment: Interpretive Data Percent cell count reference ranges are not reported, since discordance with absolute values may lead to misinterpretation of CBC data. Current Interpretive Data was last revised on 2017. Blood 01/05/2025 10:0 1 PM CDT 01/05/2025 10:38 PM CDT Rosa Beltran NP LAB BLOOD ORDERABLES Final Re sult Performing Organization Address [facility]/ZIP Co de Phone Number [facility] [place] [address] * (ABNORMAL) CBC with auto differential (01/05/2025 10:01 PM CDT) Pathologist [facility] [place] WBC 7.22 3.80 - 9.90 K/cumm Hgb 8.8(L) 13.0 - 17.5 g/dL [facility] Hct 27.1(L) 38.9 - 50.3 % [facility] Plt 302 150 - 400 K/cumm [facility] MPV 9.8 9.1 - 12.3 fL [facility] RBC 2.65(L) 4.30 - 5.80 M/cumm [facility] MCV 102.3(H) 81.3 - 96.4 fL [facility] MCH 33.2 27.1 - 33.3 pg [facility] MCHC 32.5 32.3 - 35.7 g/dL [facility] RDW CV 15.3(H) 11.1 - 14.9 % [facility] RDW SD 57.2(H) 35.7 - 48.1 fL [facility] NRBC abs 0.03(H) 0.00 - 0.01 K/cumm [facility] Blood 01/05/2025 10:0 1 PM CDT 01/05/2025 10:38 PM CDT Rosa Beltran NP LAB BLOOD ORDERABLES Final Re sult [facility] [place] [address] * Type and screen (01/05/2025 10:01 PM CDT) Becca, indirect Negative ABO Rh A Positive [facility] Blood 01/05/2025 10:0 1 PM CDT 01/05/2025 10:41 PM CDT Narrative [facility] - 01/06/2025 12:08 AM CDT Has the patient had Daratumumab or Isatuximab in the past 6 months?->Unknown Rosa Beltran [employer] LAB BLOOD BANK TEST ORDERABLE S Final Result [facility] [place] [address] * Phosphorus (01/05/2025 10:01 PM CDT) [facility] Phosphorus, pl 4.2 2.3 - 4.5 mg/dL Blood 01/05/2025 10:0 1 PM CDT 01/05/2025 10:38 PM CDT Rosa Beltran NP LAB BLOOD ORDERABLES Final Re sult Performing Organization Address [facility]/ZIP Co de Phone Number [facility] [place] [address] * (ABNORMAL) Magnesium (01/05/2025 10:01 PM CDT) [facility] Magnesium 2.7(H) 1.4 - 2.5 mg/dL Blood 01/05/2025 10:0 1 PM CDT 01/05/2025 10:38 PM CDT Rosa Beltran LAB BLOOD ORDERABLES Final Re sult Performing Organization Address [facility] Co de Phone Number [facility] [place] [address] * (ABNORMAL) Hepatic function panel (01/05/2025 10:01 PM CDT) [facility] Bilirubin, total 0.4 0.1 - 1.2 mg/dL Bilirubin, direct <0.2 0.1 - 0.3 mg/dL [facility] Comment:Reviewed Protein, pl 6.1(L) 6.5 - 8.5 g/dL [facility] Albumin 3.2(L) 3.5 - 5.0 g/dL [facility] Alk phos 52 40 - 130 Units/L [facility] ALT 19 7 - 55 Units/L [facility] AST 32 10 - 50 Units/L [facility] Blood 01/05/2025 10:0 1 PM CDT 01/05/2025 10:38 PM CDT us Parth Dalton MD LAB BLOOD ORDERABLES Final Re sult [facility] [place] [address] * (ABNORMAL) Basic metabolic panel (01/05/2025 10:01 PM CDT) [facility] Sodium 143 135 - 145 mmol/L Potassium, pl 4.5 3.3 - 4.9 mmol/L [facility] Chloride 108 97 - 110 mmol/L [facility] CO2 23 22 - 32 mmol/L [facility] Anion gap 12 2 - 15 mmol/L [facility] BUN 63(H) 6 - 25 mg/dL [facility] Creatinine 2.19(H) 0.80 - 1.30 mg/dL [facility] Glucose 94 70 - 199 mg/dL [facility] Comment: Interpretive Data Fasting glucose >/= 126 [...] 2022. Calcium 9.1 8.5 - 10.3 mg/dL [facility] Blood 01/05/2025 10:0 1 PM CDT 01/05/2025 10:38 PM CDT Rosa Beltran NP LAB BLOOD ORDERABLES Final Re sult Performing Organization Address [facility] Co de Phone Number [facility] [place] [address] * POCT glucose (01/05/2025 7:48 PM CDT) Glucose, POC 85 70 - 199 mg/dL Blood 01/05/2025 7:48 PM CDT 01/05/2025 7:48 PM CDT Parth Dalton MD LAB POCT ORDERABLES - DEVICE Final Result Performing Organization Address [facility] Co de Phone Number [facility] [place] [address] * POCT glucose (01/05/2025 3:40 PM CDT) Glucose, POC 114 70 - 199 mg/dL Blood 01/05/2025 3:40 PM CDT 01/05/2025 3:40 PM CDT Parth Dalton MD LAB POCT ORDERABLES - DEVICE Final Result Performing Organization Address [facility] Co de Phone Number [facility] [place] [address] * Potassium, whole blood (01/05/2025 3:20 PM CDT) Potassium, bld 4.4 3.3 - 4.9 mmol/L Blood 01/05/2025 3:20 PM CDT 01/05/2025 3:37 PM CDT Jyotsna Salazar [employer] LAB BLOOD ORDERABLES Final Result Performing Organization Address [facility] Co de Phone Number [facility] [place] [address] * POCT glucose (01/05/2025 12:04 PM CDT) Glucose, POC 88 70 - 199 mg/dL Blood 01/05/2025 12:0 4 PM CDT 01/05/2025 12:04 PM CDT Parth Dalton MD LAB POCT ORDERABLES - DEVICE Final Result Performing Organization Address [facility] de Phone Number [facility] [place] [address] * Potassium, whole blood (01/05/2025 10:29 AM CDT) Potassium, bld 3.6 3.3 - 4.9 mmol/L Blood 01/05/2025 10:2 9 AM CDT 01/05/2025 10:39 AM CDT Jyotsna Salazar [employer] LAB BLOOD ORDERABLES Final Result Performing Organization Address [facility] de Phone Number [facility] [place] [address] * POCT glucose (01/05/2025 7:52 AM CDT) Glucose, POC 106 70 - 199 mg/dL Blood 01/05/2025 7:52 AM CDT 01/05/2025 7:52 AM CDT Parth Dalton MD LAB POCT ORDERABLES - DEVICE Final Result Performing Organization Address [facility]/State/ZIP Co de Phone Number [facility] [place] [address] * Potassium, whole blood (01/05/2025 5:09 AM CDT) [facility] Potassium, bld 3.5 3.3 - 4.9 mmol/L Blood 01/05/2025 5:09 AM CDT 01/05/2025 5:17 AM CDT us Jyotsna Salazar [employer] LAB BLOOD ORDERABLES Final Result Performing Organization Address [facility]/[place] [address] * POCT glucose (01/05/2025 5:07 AM CDT) [facility] Signature Glucose, POC 99 70 - 199 mg/dL Blood 01/05/2025 5:07 AM CDT 01/05/2025 5:07 AM CDT us Parth Dalton MD LAB POCT ORDERABLES - DEVICE Final Result Performing Organization Address [facility] [place] [address] * POCT glucose (01/04/2025 11:36 PM CDT) [facility] Signature Glucose, POC 96 70 - 199 mg/dL Blood 01/04/2025 11:3 6 PM CDT 01/04/2025 11:36 PM CDT us Parth Dalton MD LAB POCT ORDERABLES - DEVICE Final Result Performing Organization Address City/[facility]/ZIP Co de Phone Number [facility] [place] [address] * XR Chest 1 View (01/04/2025 11:12 [...] signed by: Vasquez Yusuf M.D. Jyotsna Salazar [employer] IMG XR PROCEDURES Final Re sult * [...] NP LAB BLOOD ORDERABLES Final Re sult [facility] [place] [address] * (ABNORMAL) Differential, auto (01/04/2025 9:31 PM CDT) Neutrophil abs 5.47 1.50 - 6.50 K/cumm Imm gran abs 0.10 0.00 - 0.10 K/cumm [facility] Lymphocyte abs 0.28(L) 0.80 - 3.30 K/cumm [facility] Monocyte abs 0.24 0.20 - 0.80 K/cumm [facility] Eosinophil abs 0.12 0.00 - 0.50 K/cumm [facility] Basophil abs 0.02 0.00 - 0.10 K/cumm [facility] Neutrophil pct 87.8 % [facility] Comment: Interpretive Data Percent cell count reference ranges are not reported, since discordance with absolute values may lead to misinterpretation of CBC data. Current Interpretive Data was last revised on 2017. Imm gran pct 1.6 % [facility] Comment: Interpretive Data Percent cell count reference ranges are not reported, since discordance with absolute values may lead to misinterpretation of CBC data. Current Interpretive Data was last revised on 2017. Lymphocyte pct 4.5 % [facility] Comment: Interpretive Data Percent cell count reference ranges are not reported, since discordance with absolute values may lead to misinterpretation of CBC data. Current Interpretive Data was last revised on 2017. Monocyte pct 3.9 % [facility] Comment: Interpretive Data Percent cell count reference ranges are not reported, since discordance with absolute values may lead to misinterpretation of CBC data. Current Interpretive Data was last revised on 2017. Eosinophil pct 1.9 % [facility] Comment: Interpretive Data Percent cell count reference ranges are not reported, since discordance with absolute values may lead to misinterpretation of CBC data. Current Interpretive Data was last revised on 2017. Basophil pct 0.3 % [facility] Comment: Interpretive Data Percent cell count reference ranges are not reported, since discordance with absolute values may lead to misinterpretation of CBC data. Current Interpretive Data was last revised on 2017. Blood 01/04/2025 9:31 PM CDT 01/04/2025 10:33 PM CDT Rosa Beltran NP LAB BLOOD ORDERABLES Final Re sult [facility] [place] [address] * (ABNORMAL) CBC with auto differential (01/04/2025 9:31 PM CDT) WBC 6.23 3.80 - 9.90 K/cumm Hgb 8.4(L) 13.0 - 17.5 g/dL [facility] Hct 25.1(L) 38.9 - 50.3 % [facility] Plt 263 150 - 400 K/cumm [facility] MPV 10.4 9.1 - 12.3 fL [facility] RBC 2.49(L) 4.30 - 5.80 M/cumm [facility] MCV 100.8(H) 81.3 - 96.4 fL [facility] MCH 33.7(H) 27.1 - 33.3 pg [facility] MCHC 33.5 32.3 - 35.7 g/dL [facility] RDW CV 15.0(H) 11.1 - 14.9 % [facility] RDW SD 55.5(H) 35.7 - 48.1 fL [facility] NRBC abs 0.03(H) 0.00 - 0.01 K/cumm [facility] Blood 01/04/2025 9:31 PM CDT 01/04/2025 10:33 PM CDT Rosa Beltran LAB BLOOD ORDERABLES Final Re sult Performing Organization Address [facility] de Phone Number [facility] [place] [address] * aPTT (01/04/2025 9:31 PM CDT) Pathologist [facility] [place] aPTT 28 26 - 38 sec Comment: Interpretive Data Heparin therapeutic range: 66.0 - 100.0 seconds. Range based on correlation with therapeutic heparin activity range of 0.3 - 0.7 Units/mL. Current interpretive data was last revised on 2023. Blood 01/04/2025 9:31 PM CDT 01/04/2025 10:25 PM CDT [facility] BLOOD ORDERABLES Final Re sult Performing Organization Address [facility] Co de Phone Number [facility] [place] [address] * Protime-INR (01/04/2025 9:31 PM CDT) Pathologist [facility] [place] PT 12.3 10.2 - 13.5 sec INR 1.09 0.90 - 1.20 [facility] Comment: Interpretive data Oral anticoagulant therapeutic ranges: Venous thromboembolism prophylaxis or treatment: 2.0-3.0 CARDIOLOGY Standard range: 2.0-3.0 High-intensity range: 2.5-3.5 Refer to indication-specific guidelines for appropriate target ranges for prosthetic heart valve replacement. Current interpretive data was last revised on 2019. Blood 01/04/2025 9:31 PM CDT 01/04/2025 10:25 PM CDT Rosa Beltran [employer] LAB BLOOD ORDERABLES Final Re sult Performing Organization Address [facility] Co de Phone Number [facility] [place] [address] * (ABNORMAL) Phosphorus (01/04/2025 9:31 PM CDT) Phosphorus, pl 5.3(H) 2.3 - 4.5 mg/dL Blood 01/04/2025 9:31 PM CDT 01/04/2025 10:25 PM CDT Rosa Tingzemely [employer] LAB BLOOD ORDERABLES Final Re sult Performing Organization Address [facility] Co de Phone Number [facility] [place] [address] * (ABNORMAL) Magnesium (01/04/2025 9:31 PM CDT) Magnesium 2.6(H) 1.4 - 2.5 mg/dL Blood 01/04/2025 9:31 PM CDT 01/04/2025 10:25 PM CDT [facility] [employer] LAB BLOOD ORDERABLES Final Re sult Performing Organization Address [facility] Co de Phone Number [facility] [place] [address] * (ABNORMAL) Hepatic function panel (01/04/2025 9:31 PM CDT) [facility] Bilirubin, total 0.4 0.1 - 1.2 mg/dL Bilirubin, direct 0.2 0.1 - 0.3 mg/dL [facility] Protein, pl 6.2(L) 6.5 - 8.5 g/dL [facility] Albumin 3.1(L) 3.5 - 5.0 g/dL [facility] Alk phos 49 40 - 130 Units/L [facility] ALT 13 7 - 55 Units/L [facility] AST 28 10 - 50 Units/L [facility] Blood 01/04/2025 9:31 PM CDT 01/04/2025 10:25 PM CDT Rosa Beltran [employer] LAB BLOOD ORDERABLES Final Re sult [facility] Department [place] [address] * (ABNORMAL) Basic metabolic panel (01/04/2025 9:31 PM CDT) [facility] Sodium 139 135 - 145 mmol/L Potassium, pl 3.7 3.3 - 4.9 mmol/L [facility] Chloride 105 97 - 110 mmol/L [facility] CO2 21(L) 22 - 32 mmol/L [facility] Anion gap 13 2 - 15 mmol/L [facility] BUN 58(H) 6 - 25 mg/dL [facility] Creatinine 2.71(H) 0.80 - 1.30 mg/dL [facility] Glucose 91 70 - 199 mg/dL [facility] Comment: Interpretive Data Fasting glucose >/= 126 [...] 2022. Calcium 8.7 8.5 - 10.3 mg/dL [facility] Blood 01/04/2025 9:31 PM CDT 01/04/2025 10:25 PM CDT Rosa Beltran NP LAB BLOOD ORDERABLES Final Re sult Performing Organization Address City/[facility]/ZIP Co de Phone Number [facility] [place] [address] * POCT glucose (01/04/2025 9:25 PM CDT) Glucose, POC 97 70 - 199 mg/dL Blood 01/04/2025 9:25 PM CDT 01/04/2025 9:25 PM CDT Parth Dalton MD LAB POCT ORDERABLES - DEVICE Final Result Performing Organization Address [facility] Co de Phone Number [facility] [place] [address] * POCT glucose (01/04/2025 7:29 PM CDT) Glucose, POC 95 70 - 199 mg/dL Blood 01/04/2025 7:29 PM CDT 01/04/2025 7:29 PM CDT Parth Datlon MD LAB POCT ORDERABLES - DEVICE Final Result Performing Organization Address [facility] Co de Phone Number [facility] [place] [address] * POCT glucose (01/04/2025 3:55 PM CDT) Glucose, POC 88 70 - 199 mg/dL Blood 01/04/2025 3:55 PM CDT 01/04/2025 3:55 PM CDT Parth Dalton MD LAB POCT ORDERABLES - DEVICE Final Result Performing Organization Address [facility] Co de Phone Number [facility] [place] [address] * (ABNORMAL) eGFR (01/04/2025 11:48 AM CDT) [...] ORDERABLES Final Re sult Performing Organization Address [facility]/ZIP Co de Phone Number [facility] [place] [address] * (ABNORMAL) Basic metabolic panel (01/04/2025 11:48 AM CDT) Sodium 138 135 - 145 mmol/L Potassium, pl 3.9 3.3 - 4.9 mmol/L [facility] Chloride 102 97 - 110 mmol/L [facility] CO2 22 22 - 32 mmol/L [facility] Anion gap 14 2 - 15 mmol/L [facility] BUN 58(H) 6 - 25 mg/dL [facility] Creatinine 2.62(H) 0.80 - 1.30 mg/dL [facility] Glucose 103 70 - 199 mg/dL [facility] Comment: Interpretive Data Fasting glucose >/= 126 [...] 2022. Calcium 8.9 8.5 - 10.3 mg/dL [facility] Blood 01/04/2025 11:4 8 AM CDT 01/04/2025 12:05 PM CDT Parth Dalton MD LAB BLOOD ORDERABLES Final Re sult Performing Organization Address [facility]/ZIP Co de Phone Number [facility] [place] [address] * POCT glucose (01/04/2025 11:47 AM CDT) [facility] Signature Glucose, POC 109 70 - 199 mg/dL Blood 01/04/2025 11:4 7 AM CDT 01/04/2025 11:47 AM CDT us Parth Dalton MD LAB POCT ORDERABLES - DEVICE Final Result Performing Organization Address [facility]/ZIP Co de Phone Number [facility] [place] [address] * POCT glucose (01/04/2025 7:49 AM CDT) Glucose, POC 102 70 - 199 mg/dL Blood 01/04/2025 7:49 AM CDT 01/04/2025 7:49 AM CDT Parth Dalton MD LAB POCT ORDERABLES - DEVICE Final Result Performing Organization Address [facility] Co de Phone Number [facility] [place] [address] * (ABNORMAL) POCT glucose (01/04/2025 7:47 AM CDT) Glucose, POC 68(L) 70 - 199 mg/dL Blood 01/04/2025 7:47 AM CDT 01/04/2025 7:47 AM CDT Prath Dalton MD LAB POCT ORDERABLES - DEVICE Final Result Performing Organization Address [facility] de Phone Number [facility] [place] [address] * POCT glucose (01/04/2025 4:08 AM CDT) Glucose, POC 95 70 - 199 mg/dL Blood 01/04/2025 4:08 AM CDT 01/04/2025 4:08 AM CDT Parth Dalton MD LAB POCT ORDERABLES - DEVICE Final Result Performing Organization Address [facility] [place] [address] * (ABNORMAL) POCT glucose (01/04/2025 4:03 AM CDT) Glucose, POC 65(L) 70 - 199 mg/dL Blood 01/04/2025 4:03 AM CDT 01/04/2025 4:03 AM CDT Parth Dalton MD LAB POCT ORDERABLES - DEVICE Final Result Performing Organization Address [facility] Co de Phone Number [facility] [place] [address] * Oxyhemoglobin, central venous (01/04/2025 12:06 AM CDT) Oxyhemoglobin, CV 62.7 % Comment: Interpretive Data No reference range established. Current interpretive data was last revised 2019. Blood 01/04/2025 12:0 6 AM CDT 01/04/2025 12:14 AM CDT Parth Dalton MD LAB BLOOD ORDERABLES Final Re sult Performing Organization Address [facility] Co de Phone Number [facility] [place] [address] * Potassium, whole blood (01/04/2025 12:06 AM CDT) [facility] Potassium, bld 4.3 3.3 - 4.9 mmol/L Blood 01/04/2025 12:0 6 AM CDT 01/04/2025 12:14 AM CDT Parth Dalton MD LAB BLOOD ORDERABLES Final Re sult Performing Organization Address [facility] Co de Phone Number [facility] [place] [address] * (ABNORMAL) eGFR (01/04/2025 12:06 AM CDT) [...] 01/04/2025 12:20 AM CDT us Marsha Villarreal [employer] LAB BLOOD ORDERABLES Final Re sult [facility] [place] [address] * POCT glucose (01/04/2025 12:06 AM CDT) Glucose, POC 96 70 - 199 mg/dL Blood 01/04/2025 12:0 6 AM CDT 01/04/2025 12:06 AM CDT us Parth Dalton MD LAB POCT ORDERABLES - DEVICE Final Result [facility] [place] [address] * Lactate, whole blood (01/04/2025 12:06 AM CDT) Lactate, bld 1.7 0.7 - 2.0 mmol/L Blood 01/04/2025 12:0 6 AM CDT 01/04/2025 12:14 AM CDT us Sravan ROBBINS LAB BLOOD ORDERABLES Raqeul amaya Result Performing Organization Address [facility]/ZIP Co de Phone Number [facility] Department [place] [address] * (ABNORMAL) CBC without differential (01/04/2025 12:06 AM CDT) Pathologist [facility] [place] WBC 7.03 3.80 - 9.90 K/cumm Hgb 7.8(L) 13.0 - 17.5 g/dL [facility] Hct 23.2(L) 38.9 - 50.3 % [facility] Plt 203 150 - 400 K/cumm [facility] MPV 10.4 9.1 - 12.3 fL [facility] RBC 2.32(L) 4.30 - 5.80 M/cumm [facility] MCV 100.0(H) 81.3 - 96.4 fL [facility] MCH 33.6(H) 27.1 - 33.3 pg [facility] MCHC 33.6 32.3 - 35.7 g/dL [facility] RDW CV 14.9 11.1 - 14.9 % [facility] RDW SD 54.5(H) 35.7 - 48.1 fL [facility] NRBC abs 0.03(H) 0.00 - 0.01 K/cumm [facility] Blood 01/04/2025 12:0 6 AM CDT 01/04/2025 12:19 AM CDT us Nicole Ho [employer] LAB BLOOD ORDERABLES F inal Result Performing Organization Address [facility]/ZIP Co de Phone Number [facility] Department [place] [address] * (ABNORMAL) Phosphorus (01/04/2025 12:06 AM CDT) Pathologist [facility] [place] Phosphorus, pl 5.9(H) 2.3 - 4.5 mg/dL Blood 01/04/2025 12:0 6 AM CDT 01/04/2025 12:12 AM CDT Marsha Villarreal [employer] LAB BLOOD ORDERABLES Final Re sult Performing Organization Address [facility] Co de Phone Number [facility] Department [place] [address] * (ABNORMAL) Magnesium (01/04/2025 12:06 AM CDT) Pathologist [facility] [place] Magnesium 2.6(H) 1.4 - 2.5 mg/dL Blood 01/04/2025 12:0 6 AM CDT 01/04/2025 12:12 AM CDT Parth Dalton MD LAB BLOOD ORDERABLES Final Re sult Performing Organization Address [facility] de Phone Number [facility] [place] [address] * (ABNORMAL) Basic metabolic panel (01/04/2025 12:06 AM CDT) [facility] Sodium 137 135 - 145 mmol/L Potassium, pl 4.4 3.3 - 4.9 mmol/L [facility] Chloride 102 97 - 110 mmol/L [facility] CO2 23 22 - 32 mmol/L [facility] Anion gap 12 2 - 15 mmol/L [facility] BUN 53(H) 6 - 25 mg/dL [facility] Creatinine 2.54(H) 0.80 - 1.30 mg/dL [facility] Glucose 100 70 - 199 mg/dL [facility] Comment: Interpretive Data Fasting glucose >/= 126 [...] 2022. Calcium 8.6 8.5 - 10.3 mg/dL [facility] Blood 01/04/2025 12:0 6 AM CDT 01/04/2025 12:12 AM CDT us Marsha Villarreal [employer] LAB BLOOD ORDERABLES Final Re sult [facility] [place] [address] * POCT glucose (01/03/2025 8:01 PM CDT) [facility] Glucose, POC 98 70 - 199 mg/dL Blood 01/03/2025 8:01 PM CDT 01/03/2025 8:01 PM CDT us Parth Dalton MD LAB POCT ORDERABLES - DEVICE Final Result Performing Organization Address [facility] Co de Phone Number [facility] Department [place] [address] * XR Chest 1 View (01/03/2025 7:20 PM CDT) Anatomical Region Laterality Modality Body, Chest N/A Digital Radiogra phy 01/04/2025 7:42 AM CDT Impressions 01/04/2025 7:42 AM CDT Comparison is made to prior chest radiograph dated 01/02/2025. Tracheostomy tubing projects over the upper thoracic trachea. Gastric tube courses caudally below the diaphragm, beyond the [id number]. Sternotomy plate are unchanged. There is left [...] courses caudally below the diaphragm, beyond the [id number]. Sternotomy plate are unchanged. There is left atrial appendage clip. Tip of a right internal jugular central venous catheter terminates in the superior vena cava. Left-sided chest tube is in place. No significant interval change in mild bibasilar atelectasis. No pneumothorax. Stable cardiomegaly. Electronically signed by: Lupe Garland M.D. us Thoa Thi Palacios [employer] IMG XR PROCEDURES Final Resul t * [...] plan with the ICU team and other medical/informatics consultant staff, making frequent assessments and decisions [...] whole blood (01/03/2025 6:20 PM CDT) Pathologist [facility] [place] Lactate, bld 2.2(H) 0.7 - 2.0 mmol/L Blood 01/03/2025 6:20 PM CDT 01/03/2025 6:28 PM CDT us Jyotsna Salazar [employer] LAB BLOOD ORDERABLES Final Result Performing Organization Address [facility]/ZIP Co de Phone Number [facility] Department [place] [address] * POCT glucose (01/03/2025 4:59 PM CDT) [facility] Glucose, POC 106 70 - 199 mg/dL Blood 01/03/2025 4:59 PM CDT 01/03/2025 4:59 PM CDT us Parth Dalton MD LAB POCT ORDERABLES - DEVICE Final Result Performing Organization Address [facility] Co de Phone Number [facility] [place] [address] * MRSA Only (Staphylococcus aureus) Culture Nasal (01/03/2025 11:26 AM CDT) [facility] Report Final Report: Negative Nasal 01/03/2025 11:2 6 AM CDT 01/03/2025 11:59 AM CDT N[facility]ative [facility] - 01/04/2025 1:37 PM CDT Testing performed by [facility] Microbiology Laboratory ([phone]). Seema Palma DNP LAB MICROBIOLOGY - GENE RAL ORDERABLES Final Result Performing Organization Address [facility] Co de Phone Number [facility] Department [place] [address] * (ABNORMAL) eGFR (01/03/2025 11:26 AM CDT) [...] 01/03/2025 11:48 AM CDT us Seema Palma [facility] LAB BLOOD ORDERABLES Fi nal Result Performing Organization Address [facility]/ZIP Co de Phone Number CYNTHIA [facility] Department [place] [address] * (ABNORMAL) Basic metabolic panel (01/03/2025 11:26 AM CDT) Pathologist [facility] [place] Sodium 136 135 - 145 mmol/L Potassium, pl 3.7 3.3 - 4.9 mmol/L [facility] Chloride 100 97 - 110 mmol/L [facility] CO2 22 22 - 32 mmol/L [facility] Anion gap 14 2 - 15 mmol/L [facility] BUN 45(H) 6 - 25 mg/dL [facility] Creatinine 2.21(H) 0.80 - 1.30 mg/dL [facility] Glucose 104 70 - 199 mg/dL [facility] Comment: Interpretive Data Fasting glucose >/= 126 [...] 2022. Calcium 8.4(L) 8.5 - 10.3 mg/dL [facility] Blood 01/03/2025 11:2 6 AM CDT 01/03/2025 11:48 AM CDT us Seema Palma DNP LAB BLOOD ORDERABLES Fi nal Result [facility] [place] [address] * POCT glucose (01/03/2025 8:20 AM CDT) Glucose, POC 108 70 - 199 mg/dL Blood 01/03/2025 8:20 AM CDT 01/03/2025 8:20 AM CDT us Parth Dalton MD LAB POCT ORDERABLES - DEVICE Final Result [facility] [place] [address] * POCT glucose (01/03/2025 4:17 AM CDT) Glucose, POC 102 70 - 199 mg/dL Blood 01/03/2025 4:17 AM CDT 01/03/2025 4:17 AM CDT Parth Dalton MD LAB POCT ORDERABLES - DEVICE Final Result [facility] [place] [address] * POCT glucose (01/03/2025 12:10 AM CDT) Glucose, POC 134 70 - 199 mg/dL Blood 01/03/2025 12:1 0 AM CDT 01/03/2025 12:10 AM CDT Parth Dalton MD LAB POCT ORDERABLES - DEVICE Final Result Performing Organization Address [facility] de Phone Number [facility] [place] [address] * Infection Prevention Blanche auris PCR, surveillance Axilla/Groin (01/03/2025 12:06 AM CDT) Pathologist [facility] [place] Blanche auris DNA Not Detected Not Detected [facility] Comment: Interpretive Data Testing performed by [facility] Molecular Infectious Disease Laboratory using the Daquan flaquita 6800 Blanche auris assay. This assay detects DNA from Blanche auris using Real-Time PCR. This assay is laboratory developed and is not cleared by the [facility] Food and Drug Administration. The performance characteristics have been verified by the [facility] Molecular Infectious Disease Laboratory. Axilla/Groin 01/03/2025 12:0 6 AM CDT 01/03/2025 2:54 AM CDT Narrative [facility] - 01/03/2025 12:43 PM CDT Order placed by [facility] due to ring surveillance. Instant Order Generic Provider LAB MICROBIOLOGY - GENERAL ORDERABLES Final Result Performing Organization Address [facility] Co de Phone Number [facility] [place] [address] [facility] * Oxyhemoglobin, central venous (01/03/2025 12:06 AM CDT) [facility] Oxyhemoglobin, CV 64.7 % Comment: Interpretive Data No reference range established. Current interpretive data was last revised 2019. Blood 01/03/2025 12:0 6 AM CDT 01/03/2025 12:18 AM CDT Magy Kaur NP LAB BLOOD ORDERABLES F inal Result Performing Organization Address [facility]/ZIP Co de Phone Number [facility] Department [place] [address] * Potassium, whole blood (01/03/2025 12:06 AM CDT) [facility] Potassium, bld 3.7 3.3 - 4.9 mmol/L Blood 01/03/2025 12:0 6 AM CDT 01/03/2025 12:18 AM CDT Parth Dalton MD LAB BLOOD ORDERABLES Final Re sult Performing Organization Address [facility]/ZIP Co de Phone Number [facility] [place] [address] * (ABNORMAL) eGFR (01/03/2025 12:06 AM CDT) [facility] eGFR 34(L) >=60 mL/min/1. 73 m2 Comment: [...] 01/03/2025 12:18 AM CDT us Marsha Villarreal [employer] LAB BLOOD ORDERABLES Final Re sult [facility] [place] [address] * (ABNORMAL) Differential, auto (01/03/2025 12:06 AM CDT) Neutrophil abs 4.02 1.50 - 6.50 K/cumm Imm gran abs 0.03 0.00 - 0.10 K/cumm [facility] Lymphocyte abs 0.26(L) 0.80 - 3.30 K/cumm [facility] Monocyte abs 0.26 0.20 - 0.80 K/cumm [facility] Eosinophil abs 0.01 0.00 - 0.50 K/cumm [facility] Basophil abs 0.01 0.00 - 0.10 K/cumm [facility] Neutrophil pct 87.5 % [facility] Comment: Interpretive Data Percent cell count reference ranges are not reported, since discordance with absolute values may lead to misinterpretation of CBC data. Current Interpretive Data was last revised on 2017. Imm gran pct 0.7 % [facility] Comment: Interpretive Data Percent cell count reference ranges are not reported, since discordance with absolute values may lead to misinterpretation of CBC data. Current Interpretive Data was last revised on 2017. Lymphocyte pct 5.7 % [facility] Comment: Interpretive Data Percent cell count reference ranges are not reported, since discordance with absolute values may lead to misinterpretation of CBC data. Current Interpretive Data was last revised on 2017. Monocyte pct 5.7 % [facility] Comment: Interpretive Data Percent cell count reference ranges are not reported, since discordance with absolute values may lead to misinterpretation of CBC data. Current Interpretive Data was last revised on 2017. Eosinophil pct 0.2 % [facility] Comment: Interpretive Data Percent cell count reference ranges are not reported, since discordance with absolute values may lead to misinterpretation of CBC data. Current Interpretive Data was last revised on 2017. Basophil pct 0.2 % [facility] Comment: Interpretive Data Percent cell count reference ranges are not reported, since discordance with absolute values may lead to misinterpretation of CBC data. Current Interpretive Data was last revised on 2017. Blood 01/03/2025 12:0 6 AM CDT 01/03/2025 12:18 AM CDT us Marla Francois NP LAB BLOOD ORDERABLES Raquel amaya Result [facility] [place] [address] * (ABNORMAL) CBC with auto differential (01/03/2025 12:06 AM CDT) WBC 4.59 3.80 - 9.90 K/cumm Hgb 7.8(L) 13.0 - 17.5 g/dL [facility] Hct 23.6(L) 38.9 - 50.3 % [facility] Plt 149(L) 150 - 400 K/cumm [facility] MPV 10.4 9.1 - 12.3 fL [facility] RBC 2.34(L) 4.30 - 5.80 M/cumm [facility] MCV 100.9(H) 81.3 - 96.4 fL [facility] MCH 33.3 27.1 - 33.3 pg [facility] MCHC 33.1 32.3 - 35.7 g/dL [facility] RDW CV 14.5 11.1 - 14.9 % [facility] RDW SD 53.8(H) 35.7 - 48.1 fL [facility] NRBC abs 0.02(H) 0.00 - 0.01 K/cumm [facility] Blood 01/03/2025 12:0 6 AM CDT 01/03/2025 12:18 AM CDT Marla Francois [employer] LAB BLOOD ORDERABLES Raquel l Result Performing Organization Address [facility]/ZIP Co de Phone Number [facility] [place] [address] * Type and screen (01/03/2025 12:06 AM CDT) Becca, indirect Negative ABO Rh A Positive [facility] Blood 01/03/2025 12:0 6 AM CDT 01/03/2025 12:21 AM CDT Narrative [facility] - 01/03/2025 1:23 AM CDT Has the patient had Daratumumab or Isatuximab in the past 6 months?->Unknown Nicole Ho [employer] LAB BLOOD BANK TEST OR DERABLES Final Result Performing Organization Address [facility] Co de Phone Number [facility] [place] [address] * (ABNORMAL) Phosphorus (01/03/2025 12:06 AM CDT) Pathologist [facility] [place] Phosphorus, pl 5.3(H) 2.3 - 4.5 mg/dL Blood 01/03/2025 12:0 6 AM CDT 01/03/2025 12:18 AM CDT Marsha Villarreal [employer] LAB BLOOD ORDERABLES Final Re sult Performing Organization Address [facility] Co de Phone Number [facility] [place] [address] * (ABNORMAL) Magnesium (01/03/2025 12:06 AM CDT) Magnesium 2.6(H) 1.4 - 2.5 mg/dL Blood 01/03/2025 12:0 6 AM CDT 01/03/2025 12:18 AM CDT Marsha Villarreal NP LAB BLOOD ORDERABLES Final Re sult Performing Organization Address [facility] de Phone Number [facility] Department [place] [address] * (ABNORMAL) Basic metabolic panel (01/03/2025 12:06 AM CDT) Pathologist [facility] [place] Sodium 136 135 - 145 mmol/L Potassium, pl 3.8 3.3 - 4.9 mmol/L [facility] Chloride 98 97 - 110 mmol/L [facility] CO2 24 22 - 32 mmol/L [facility] Anion gap 14 2 - 15 mmol/L [facility] BUN 43(H) 6 - 25 mg/dL [facility] Creatinine 2.01(H) 0.80 - 1.30 mg/dL [facility] Glucose 142 70 - 199 mg/dL [facility] Comment: Interpretive Data Fasting glucose >/= 126 [...] 2022. Calcium 8.4(L) 8.5 - 10.3 mg/dL [facility] Blood 01/03/2025 12:0 6 AM CDT 01/03/2025 12:18 AM CDT Marsha Villarreal NP LAB BLOOD ORDERABLES Final Re sult Performing Organization Address [facility] Co de Phone Number [facility] [place] [address] * POCT glucose (01/02/2025 7:52 PM CDT) Glucose, POC 125 70 - 199 mg/dL Blood 01/02/2025 7:52 PM CDT 01/02/2025 7:52 PM CDT us Parth Dalton MD LAB POCT ORDERABLES - DEVICE Final Result Performing Organization Address [facility] Co de Phone Number [facility] [place] [address] * Oxyhemoglobin, central venous (01/02/2025 7:50 PM CDT) Oxyhemoglobin, CV 67.3 % Comment: Interpretive Data No reference range established. Current interpretive data was last revised 2019. Blood 01/02/2025 7:50 PM CDT 01/02/2025 7:57 PM CDT us Magy Kaur [employer] LAB BLOOD ORDERABLES F inal Result Performing Organization Address [facility] Co de Phone Number [facility] Department [place] [address] * Potassium, whole blood (01/02/2025 7:50 PM CDT) Potassium, bld 4.3 3.3 - 4.9 mmol/L Blood 01/02/2025 7:50 PM CDT 01/02/2025 7:57 PM CDT us Jyotsna Salazar [employer] LAB BLOOD ORDERABLES Final Result Performing Organization Address [facility] Co de Phone Number [facility] Department [place] [address] * Critical Care (01/02/2025 7:47 PM CDT) [...] plan with the ICU team and other medical/informatics consultant staff, making frequent assessments and decisions [...] the distal tip is out of the [id number]. Right internal jugular approach central venous catheter [...] the distal tip is out of the [id number]. Right internal jugular approach central venous catheter [...] by: José Miguel Shore M.D. Devyn Palacios [employer] DESIGNER IMG XR PROCEDURES Final Resul t * POCT glucose (01/02/2025 3:05 PM CDT) Glucose, POC 93 70 - 199 mg/dL Blood 01/02/2025 3:05 PM CDT 01/02/2025 3:05 PM CDT Parth Dalton MD LAB POCT ORDERABLES - DEVICE Final Result [facility] Department [place] [address] * Oxyhemoglobin, central venous (01/02/2025 3:01 PM CDT) Oxyhemoglobin, CV 44.0 % Comment: Interpretive Data No reference range established. Current interpretive data was last revised 2019. Blood 01/02/2025 3:01 PM CDT 01/02/2025 3:23 PM CDT Magy Kaur [employer] LAB BLOOD ORDERABLES F inal Result Performing Organization Address [facility] de Phone Number [facility] [place] [address] * Potassium, whole blood (01/02/2025 3:01 PM CDT) Potassium, bld 4.5 3.3 - 4.9 mmol/L Blood 01/02/2025 3:01 PM CDT 01/02/2025 3:22 PM CDT Jyotsna Salazar [employer] LAB BLOOD ORDERABLES Final Result Performing Organization Address [facility] de Phone Number [facility] [place] [address] * POCT glucose (01/02/2025 11:35 AM CDT) Glucose, POC 88 70 - 199 mg/dL Blood 01/02/2025 11:3 5 AM CDT 01/02/2025 11:35 AM CDT Parth Dalton MD LAB POCT ORDERABLES - DEVICE Final Result Performing Organization Address [facility] de Phone Number [facility] [place] [address] * Oxyhemoglobin, central venous (01/02/2025 11:01 AM CDT) Oxyhemoglobin, CV 46.3 % Comment: Interpretive Data No reference range established. Current interpretive data was last revised 2019. Blood 01/02/2025 11:0 1 AM CDT 01/02/2025 11:05 AM CDT Magy Kaur [employer] DES[employer] LAB BLOOD ORDERABLES F inal Result Performing Organization Address [facility] Co de Phone Number [facility] [place] [address] * Potassium, whole blood (01/02/2025 11:01 AM CDT) Potassium, bld 4.8 3.3 - 4.9 mmol/L Blood 01/02/2025 11:0 1 AM CDT 01/02/2025 11:05 AM CDT us Jyotsna Salazar [employer] DES[employer] LAB BLOOD ORDERABLES Final Result Performing Organization Address [facility] de Phone Number [facility] [place] [address] * (ABNORMAL) Urinalysis reflex to microscopic (01/02/2025 9:53 AM CDT) Color, ur Yellow Yellow Clarity, ur Clear Clear [facility] Specific gravity, ur 1.038(H) 1.003 - 1.030 [facility] pH, urine 6.0 [facility] Comment: Interpretive Data U rine pH is affected by diet, medications, systemic acid-base disturbances, and renal tubular function. pH may affect urinary stone formation. For example, urine pH below 6.0 may help reduce the tendency for calcium phosphate stones and pH greater than 6.0 may reduce the tendency for uric acid stone formation. Source: [facility] [place] Current Interpretive Data was last revised on 2017 Protein, ur ql 2+(A) Negative [facility] Glucose, ur ql Negative Negative [facility] Ketones, ur 1+(A) Negative [facility] Bilirubin, ur Negative Negative [facility] Blood, ur 2+(A) Negative [facility] Urobilinogen, ur <2.0 <2.0 mg/dL [facility] Nitrite, ur Negative Negative [facility] Leukocyte esterase, ur Negative Negative [facility] UA reflex comment Reflex to microscopic UA will be performed. [facility] Urine 01/02/2025 9:53 AM CDT 01/02/2025 10:00 AM CDT us Marla Francois [employer] DESIGNER LAB URINE ORDERABLES Raquel l Result Performing Organization Address [facility] de Phone Number [facility] [place] [address] * (ABNORMAL) Urinalysis, microscopic only (01/02/2025 9:53 AM CDT) WBC, ur 0-5 0 - 5 /HPF RBC, ur 11-20(A) 0 - 2 /HPF [facility] Epithelial cells, squamous, ur 1-5 0 - 5 /HPF [facility] Mucous, ur Present(A) [facility] Hyaline casts, ur 21-50(A) 0 - 10 /LPF [facility] Urine 01/02/2025 9:53 AM CDT 01/02/2025 10:00 AM CDT us Marla Francois [employer] DES[employer]ER LAB URINE ORDERABLES Raquel l Result Performing Organization Address [facility] de Phone Number [facility] [place] [address] * POCT glucose (01/02/2025 8:33 AM CDT) Glucose, POC 80 70 - 199 mg/dL Blood 01/02/2025 8:33 AM CDT 01/02/2025 8:33 AM CDT us Parth Dalton MD LAB POCT ORDERABLES - DEVICE Final Result Performing Organization Address [facility] Co de Phone Number [facility] Department [place] [address] * Critical Care (01/02/2025 7:09 AM CDT) [...] plan with the ICU team and other medical/informatics consultant staff, making frequent assessments and decisions [...] in the medical record us Marla Francois [employer]ARD DESIGNER IN CLINIC/BEDSIDE ORDERAB LES Final Result * Potassium, whole blood (01/02/2025 6:29 AM CDT) Potassium, bld 3.8 3.3 - 4.9 mmol/L Blood 01/02/2025 6:29 AM CDT 01/02/2025 6:33 AM CDT us Jyotsna Salazar [employer] DES[employer] LAB BLOOD ORDERABLES Final Result [facility] Department [place] [address] * POCT glucose (01/02/2025 4:03 AM CDT) Glucose, POC 93 70 - 199 mg/dL Blood 01/02/2025 4:03 AM CDT 01/02/2025 4:03 AM CDT Parth Dalton MD LAB POCT ORDERABLES - DEVICE Final Result Performing Organization Address [facility] Co de Phone Number [facility] [place] [address] * Oxyhemoglobin, central venous (01/02/2025 12:01 AM CDT) [facility] Oxyhemoglobin, CV 61.9 % Comment: Interpretive Data No reference range established. Current interpretive data was last revised 2019. Blood 01/02/2025 12:0 1 AM CDT 01/02/2025 12:29 AM CDT Magy Kaur NP LAB BLOOD ORDERABLES F inal Result Performing Organization Address [facility] de Phone Number [facility] [place] [address] * Potassium, whole blood (01/02/2025 12:01 AM CDT) [facility] Potassium, bld 3.6 3.3 - 4.9 mmol/L Blood 01/02/2025 12:0 1 AM CDT 01/02/2025 12:29 AM CDT Parth Dalton MD LAB BLOOD ORDERABLES Final Re sult Performing Organization Address [facility] Co de Phone Number [facility] [place] [address] * (ABNORMAL) eGFR (01/02/2025 12:01 AM CDT) Pathologist [facility] [place] eGFR 46(L) >=60 mL/min/1. 73 m2 Comment: [...] 01/02/2025 12:38 AM CDT us Marsha Villarreal [employer] DES[employer] LAB BLOOD ORDERABLES Final Re sult [facility] Department [place] [address] * (ABNORMAL) CBC without differential (01/02/2025 12:01 AM CDT) [facility] WBC 3.74(L) 3.80 - 9.90 K/cumm Hgb 8.6(L) 13.0 - 17.5 g/dL [facility] Hct 25.2(L) 38.9 - 50.3 % [facility] Plt 138(L) 150 - 400 K/cumm [facility] MPV 10.5 9.1 - 12.3 fL [facility] RBC 2.51(L) 4.30 - 5.80 M/cumm [facility] MCV 100.4(H) 81.3 - 96.4 fL [facility] MCH 34.3(H) 27.1 - 33.3 pg [facility] MCHC 34.1 32.3 - 35.7 g/dL [facility] RDW CV 14.4 11.1 - 14.9 % [facility] RDW SD 52.6(H) 35.7 - 48.1 fL [facility] NRBC abs 0.02(H) 0.00 - 0.01 K/cumm [facility] Blood 01/02/2025 12:0 1 AM CDT 01/02/2025 12:40 AM CDT Rosa Beltran [employer] DES[employer]ER LAB BLOOD ORDERABLES Final Re sult Performing Organization Address [facility] Co de Phone Number [facility] [place] [address] * (ABNORMAL) Phosphorus (01/02/2025 12:01 AM CDT) Phosphorus, pl 5.7(H) 2.3 - 4.5 mg/dL Blood 01/02/2025 12:0 1 AM CDT 01/02/2025 12:38 AM CDT Marsha Villarreal [employer] DESIGNER LAB BLOOD ORDERABLES Final Re sult Performing Organization Address [facility] Co de Phone Number [facility] [place] [address] * Magnesium (01/02/2025 12:01 AM CDT) Magnesium 2.1 1.4 - 2.5 mg/dL Blood 01/02/2025 12:0 1 AM CDT 01/02/2025 12:38 AM CDT Marsha Villarreal [employer] DES[employer] LAB BLOOD ORDERABLES Final Re sult Performing Organization Address [facility] Co de Phone Number [facility] [place] [address] * (ABNORMAL) Basic metabolic panel (01/02/2025 12:01 AM CDT) Sodium 138 135 - 145 mmol/L Potassium, pl 3.6 3.3 - 4.9 mmol/L [facility] Chloride 101 97 - 110 mmol/L [facility] CO2 23 22 - 32 mmol/L [facility] Anion gap 14 2 - 15 mmol/L [facility] BUN 33(H) 6 - 25 mg/dL [facility] Creatinine 1.58(H) 0.80 - 1.30 mg/dL [facility] Glucose 103 70 - 199 mg/dL [facility] Comment: Interpretive Data Fasting glucose >/= 126 [...] 2022. Calcium 8.4(L) 8.5 - 10.3 mg/dL [facility] Blood 01/02/2025 12:0 1 AM CDT 01/02/2025 12:38 AM CDT us Marsha Villarreal NP LAB BLOOD ORDERABLES Final Re sult [facility] Department [place] [address] * POCT glucose (01/01/2025 11:57 PM CDT) Pathologist [facility] [place] Glucose, POC 105 70 - 199 mg/dL Blood 01/01/2025 11:5 7 PM CDT 01/01/2025 11:57 PM CDT Parth Dalton MD LAB POCT ORDERABLES - DEVICE Final Result [facility] Department [place] [address] * XR Chest 1 View (01/01/2025 9:18 PM CDT) Anatomical Region Laterality Modality Body, Chest N/A Computed Radiogr aphy 01/02/2025 9:25 AM CDT Impressions 01/02/2025 11:05 AM CDT Comparison is made with multiple prior exams, most recently radiograph dated 12/31/2024. Patient is rotated. Patient is status post tracheostomy. Gastric tube extends into the stomach, the tip terminates out of the [id number]. Right internal jugular vein approach intravenous catheter [...] stomach, the tip terminates out of the [id number]-bent. Right internal jugular vein approach intravenous catheter [...] Mckeon M.D. us Jose Lwhitney Rupinder Palacios [employer] DESIGNER IMG XR PROCEDURES Final Resul t * [...] plan with the ICU team and other medical/informatics consultant staff, making frequent assessments and decisions [...] LAB POCT ORDERABLES - DEVICE Final Result [facility] Department [place] [address] * Potassium, whole blood (01/01/2025 6:06 PM CDT) [facility] Potassium, bld 3.9 3.3 - 4.9 mmol/L Blood 01/01/2025 6:06 PM CDT 01/01/2025 6:12 PM CDT us Jyotsna Salazar [employer] DESIGN[employer] LAB BLOOD ORDERABLES Final Result Performing Organization Address [facility] Co de Phone Number [facility] [place] [address] * POCT glucose (01/01/2025 5:06 PM CDT) [facility] Glucose, POC 116 70 - 199 mg/dL Blood 01/01/2025 5:06 PM CDT 01/01/2025 5:06 PM CDT us Parth Dalton MD LAB POCT ORDERABLES - DEVICE Final Result Performing Organization Address [facility] Co de Phone Number [facility] [place] [address] * (ABNORMAL) POC Blood Gas and Chemistries, Venous - (01/01/2025 12:18 PM CDT) [facility] pH, Isak POC 7.38 7.32 - 7.43 pCO2, isak POC 38(L) 40 - 50 mmHg [facility] pO2, isak POC 30 mmHg [facility] Na, POC 135 135 - 145 mmol/L [facility] K POC 3.8 3.3 - 4.9 mmol/L [facility] Comment: Interpretive Data Not all point of care methods assess for hemolysis. Confirm with instrument and retest K+ if not consistent with clinical signs and symptoms. Current Interpretive Data was last revised on 2023. Cl, POC 105 97 - 110 mmol/L [facility] Glucose, POC 118 70 - 199 mg/dL [facility] Lactate POC 1.5 0.7 - 2.0 mmol/L [facility] O2 Sat, Isak POC (Felipe) Incalculable % [facility] Base excess, POC -2.3 mmol/L [facility] HCO3, Isak POC 22 20 - 30 mmol/L [facility] Hct, POC Incalculable 41.4 - 51.6 % [facility] Total Hb, POC Incalculable 13.8 - 17.2 g/dL [facility] Blood 01/01/2025 12:1 8 PM CDT 01/01/2025 12:18 PM CDT Parth Dalton MD LAB POCT ORDERABLES - DEVICE Final Result Performing Organization Address [facility] de Phone Number [facility] Department [place] [address] * POCT glucose (01/01/2025 11:26 AM CDT) [facility] Glucose, POC 114 70 - 199 mg/dL Blood 01/01/2025 11:2 6 AM CDT 01/01/2025 11:26 AM CDT Parth Dalton MD LAB POCT ORDERABLES - DEVICE Final Result Performing Organization Address [facility] Co de Phone Number [facility] [place] [address] * Critical Care (01/01/2025 8:11 AM CDT) [...] plan with the ICU team and other medical/informatics consultant staff, making frequent assessments and decisions [...] documenting in the medical record Marla Francois [employer]ARD DESIGNER IN CLINIC/BEDSIDE ORDERAB LES Final Result * POCT glucose (01/01/2025 7:33 AM CDT) Glucose, POC 99 70 - 199 mg/dL Blood 01/01/2025 7:33 AM CDT 01/01/2025 7:33 AM CDT us Parth Dalton MD LAB POCT ORDERABLES - DEVICE Final Result Performing Organization Address [facility] Co de Phone Number [facility] [place] [address] * POCT glucose (01/01/2025 4:22 AM CDT) Glucose, POC 117 70 - 199 mg/dL Blood 01/01/2025 4:22 AM CDT 01/01/2025 4:22 AM CDT us Parth Dalton MD LAB POCT ORDERABLES - DEVICE Final Result Performing Organization Address [facility]/ZIP Co de Phone Number [facility] [place] [address] * Oxyhemoglobin, central venous (01/01/2025 4:21 AM CDT) Oxyhemoglobin, CV 67.4 % Comment: Interpretive Data No reference range established. Current interpretive data was last revised 2019. Blood 01/01/2025 4:21 AM CDT 01/01/2025 4:33 AM CDT Magy Kaur NP LAB BLOOD ORDERABLES F inal Result Performing Organization Address [facility] [place] [address] * Oxyhemoglobin, central venous (12/31/2024 11:43 PM CDT) Oxyhemoglobin, CV 60.7 % Comment: Interpretive Data No reference range established. Current interpretive data was last revised 2019. Blood 12/31/2024 11:4 3 PM CDT 01/01/2025 12:04 AM CDT Magy Kaur NP LAB BLOOD ORDERABLES F inal Result Performing Organization Address [facility] Co de Phone Number [facility] [place] [address] * Potassium, whole blood (12/31/2024 11:43 PM CDT) Potassium, bld 4.4 3.3 - 4.9 mmol/L Blood 12/31/2024 11:4 3 PM CDT 01/01/2025 12:04 AM CDT Parth Dalton MD LAB BLOOD ORDERABLES Final Re sult Performing Organization Address [facility] Co de Phone Number [facility] [place] [address] * (ABNORMAL) eGFR (12/31/2024 11:43 PM CDT) Pathologist [facility] [place] eGFR 56(L) >=60 mL/min/1. 73 m2 Comment: [...] CDT 01/01/2025 12:08 AM CDT Marsha Villarreal [employer] DESIGN[employer] LAB BLOOD ORDERABLES Final Re sult [facility] [place] [address] * (ABNORMAL) CBC without differential (12/31/2024 11:43 PM CDT) Pathologist [facility] [place] WBC 5.69 3.80 - 9.90 K/cumm Hgb 9.0(L) 13.0 - 17.5 g/dL [facility] Hct 26.8(L) 38.9 - 50.3 % [facility] Plt 108(L) 150 - 400 K/cumm [facility] MPV 10.8 9.1 - 12.3 fL [facility] RBC 2.65(L) 4.30 - 5.80 M/cumm [facility] MCV 101.1(H) 81.3 - 96.4 fL [facility] MCH 34.0(H) 27.1 - 33.3 pg [facility] MCHC 33.6 32.3 - 35.7 g/dL [facility] RDW CV 14.4 11.1 - 14.9 % [facility] RDW SD 53.4(H) 35.7 - 48.1 fL [facility] NRBC abs 0.00 0.00 - 0.01 K/cumm [facility] Blood 12/31/2024 11:4 3 PM CDT 01/01/2025 12:08 AM CDT Rosa Beltran [employer] DESIGN[employer] LAB BLOOD ORDERABLES Final Re sult Performing Organization Address [facility] Co de Phone Number [facility] [place] [address] * Phosphorus (12/31/2024 11:43 PM CDT) Phosphorus, pl 4.4 2.3 - 4.5 mg/dL Blood 12/31/2024 11:4 3 PM CDT 01/01/2025 12:08 AM CDT Marsha Villarreal [employer] DESIGNER LAB BLOOD ORDERABLES Final Re sult Performing Organization Address [facility] Co de Phone Number [facility] [place] [address] * Magnesium (12/31/2024 11:43 PM CDT) Magnesium 2.3 1.4 - 2.5 mg/dL Blood 12/31/2024 11:4 3 PM CDT 01/01/2025 12:08 AM CDT Marsha Villarreal [employer] DESIGNER LAB BLOOD ORDERABLES Final Re sult Performing Organization Address [facility] Co de Phone Number [facility] [place] [address] * (ABNORMAL) Basic metabolic panel (12/31/2024 11:43 PM CDT) [facility] Sodium 137 135 - 145 mmol/L Potassium, pl 4.5 3.3 - 4.9 mmol/L [facility] Chloride 103 97 - 110 mmol/L [facility] CO2 23 22 - 32 mmol/L [facility] Anion gap 11 2 - 15 mmol/L [facility] BUN 25 6 - 25 mg/dL [facility] Creatinine 1.33(H) 0.80 - 1.30 mg/dL [facility] Glucose 124 70 - 199 mg/dL [facility] Comment: Interpretive Data Fasting glucose >/= 126 [...] 2022. Calcium 8.4(L) 8.5 - 10.3 mg/dL [facility] Blood 12/31/2024 11:4 3 PM CDT 01/01/2025 12:08 AM CDT Marsha Villarreal [employer] DESIGNER LAB BLOOD ORDERABLES Final Re sult [facility] [place] [address] * POCT glucose (12/31/2024 11:42 PM CDT) [facility] Glucose, POC 123 70 - 199 mg/dL Blood 12/31/2024 11:4 2 PM CDT 12/31/2024 11:42 PM CDT Parth Dalton MD LAB POCT ORDERABLES - DEVICE Final Result Performing Organization Address [facility] de Phone Number [facility] [place] [address] * Oxyhemoglobin, central venous (12/31/2024 8:39 PM CDT) Oxyhemoglobin, CV 67.7 % Comment: Interpretive Data No reference range established. Current interpretive data was last revised 2019. Blood 12/31/2024 8:39 PM CDT 12/31/2024 8:53 PM CDT Magy Kaur NP LAB BLOOD ORDERABLES F inal Result Performing Organization Address [facility] de Phone Number [facility] [place] [address] * POCT glucose (12/31/2024 8:36 PM CDT) Glucose, POC 127 70 - 199 mg/dL Blood 12/31/2024 8:36 PM CDT 12/31/2024 8:36 PM CDT Parth Dalton MD LAB POCT ORDERABLES - DEVICE Final Result Performing Organization Address [facility] de Phone Number [facility] [place] [address] * Critical Care (12/31/2024 7:30 PM CDT) [...] plan with the ICU team and other medical/informatics consultant staff, making frequent assessments and decisions [...] of the following conditions: us Nicole Ho [employer] BOARD DESIGNER IN CLINIC/BEDSIDE JUAN IVY Final Result * Oxyhemoglobin, central venous (12/31/2024 6:09 PM CDT) Oxyhemoglobin, CV 51.8 % Comment: Interpretive Data No reference range established. Current interpretive data was last revised 2019. Blood 12/31/2024 6:09 PM CDT 12/31/2024 6:20 PM CDT Magy Kaur [employer]ARD DESIGNER LAB BLOOD ORDERABLES F inal Result Performing Organization Address [facility] Co de Phone Number [facility] [place] [address] * Potassium, whole blood (12/31/2024 6:09 PM CDT) Potassium, bld 4.8 3.3 - 4.9 mmol/L Blood 12/31/2024 6:09 PM CDT 12/31/2024 6:20 PM CDT Jyotsna Salazar [employer]ARD DESIGNER LAB BLOOD ORDERABLES Final Result Performing Organization Address [facility] Co de Phone Number [facility] [place] [address] * HIT Antibodies with Reflex to Serotonin Release Assay (LEON) (12/31/2024 6:09 PM CDT) HIT antibodies Negative Negative HIT Ab CAESAR Units 0.39 0.00 - 0.99 units/mL [facility] Comment: A positive HIT Ab (heparin PF4 [...] CDT 12/31/2024 6:20 PM CDT Devyn Palacios [employer]ARD DESIGNER LAB BLOOD ORDERABLES Final Re sult [facility] [place] [address] * Blood culture Blood (12/31/2024 5:05 PM CDT) Report Final Report: No growth Blood 12/31/2024 5:05 PM CDT 12/31/2024 6:39 PM CDT Narrative [facility] - 01/05/2025 7:00 AM CDT Collection->Peripheral 1. [...] performance characteristics have been verified by the [facility] Microbiology Laboratory. For questions about this culture, contact the Microbiology Laboratory at [phone]. Interpretive data was last revised on 24. Devyn Palacios LAB MICROBIOLOGY - GENERAL OR DERABLES Final Result CYNTHIA MURPHY [facility] Department [place] [address] * Blood culture Blood (12/31/2024 5:05 PM CDT) Report Final Report: No growth Blood 12/31/2024 5:05 PM CDT 12/31/2024 6:39 PM CDT Narrative [facility] - 01/05/2025 7:00 AM CDT Collection->Peripheral 1. [...] performance characteristics have been verified by the [facility] Microbiology Laboratory. For questions about this culture, contact the Microbiology Laboratory at [phone]. Interpretive data was last revised on 24. [facility] LAB MICROBIOLOGY - GENERAL OR DERABLES Final Result CYNTHIA MURPHY [facility] Department [place] [address] * (ABNORMAL) Urinalysis reflex to microscopic (12/31/2024 4:35 PM CDT) Color, ur Straw Yellow Clarity, ur Clear Clear [facility] Specific gravity, ur 1.020 1.003 - 1.030 [facility] pH, urine 6.0 [facility] Comment: Interpretive Data U rine pH is affected by diet, medications, systemic acid-base disturbances, and renal tubular function. pH may affect urinary stone formation. For example, urine pH below 6.0 may help reduce the tendency for calcium phosphate stones and pH greater than 6.0 may reduce the tendency for uric acid stone formation. Source: [facility] Current Interpretive Data was last revised on 2017 Protein, ur ql 1+(A) Negative [facility] Glucose, ur ql Negative Negative [facility] Ketones, ur Negative Negative [facility] Bilirubin, ur Negative Negative [facility] Blood, ur 1+(A) Negative [facility] Urobilinogen, ur <2.0 <2.0 mg/dL [facility] Nitrite, ur Negative Negative [facility] Leukocyte esterase, ur Negative Negative [facility] UA reflex comment Reflex to microscopic UA will be performed. [facility] Urine 12/31/2024 4:35 PM CDT 12/31/2024 6:21 PM CDT [facility] LAB URINE ORDERABLES Final Re sult CYNTHIA MURPHY [facility] Department [place] [address] * (ABNORMAL) Urinalysis, microscopic only (12/31/2024 4:35 PM CDT) WBC, ur 0-5 0 - 5 /HPF RBC, ur 3-5(A) 0 - 2 /HPF [facility] Epithelial cells, squamous, ur 1-5 0 - 5 /HPF [facility] Bacteria, ur Trace(A) [facility] Mucous, ur Present(A) [facility] Hyaline casts, ur 11-20(A) 0 - 10 /LPF [facility] Granular casts, ur 11-20(A) 0 - 0 /LPF [facility] Urine 12/31/2024 4:35 PM CDT 12/31/2024 6:21 PM CDT Devyn Rupinder Palacios [employer] LAB URINE ORDERABLES Final Re sult [facility] Department [place] [address] * Pneumonia PCR Tracheal aspirate (12/31/2024 4:34 PM CDT) Pathologist [facility] [place] C. pneumoniae DNA Not Detected Not Detected Legionella pneumophila DNA Not Detected Not Detected [facility] M. pneumoniae DNA Not Detected Not Detected [facility] Adenovirus DNA Not Detected Not Detected [facility] Coronavirus (229E, OC43, HKU1, NL63) RNA Not Detected Not Detected [facility] Metapneumovirus RNA Not Detected Not Detected [facility] Rhinovirus/Enterov irus RNA Not Detected Not Detected [facility] Influenza A RNA Not Detected Not Detected [facility] Influenza B RNA Not Detected Not Detected [facility] Parainfluenza virus (1-4) RNA Not Detected Not Detected [facility] RSV RNA Not Detected Not Detected [facility] Tracheal aspirate 12/31/2024 4:34 PM CDT 12/31/2024 8:15 PM CDT Narrative [facility] - 12/31/2024 9:52 PM CDT [employer] [...] of this assay have been determined by [facility]. Current interpretive data was last revised on 2024. [facility] Rupinder Aaronng [employer] LAB MICROBIOLOGY - GENERAL OR DERABLES Final Result [facility] Department [place] [address] * (ABNORMAL) Pneumonia PCR with aerobic culture [...] seen on Gram stain: Gram Negative Bacilli [facility] Report Final Report: Greater than or equal to 100,000 colonies/ml of Escherichia coli Greater than or equal to 100,000 colonies/ml of Pseudomonas aeruginosa Plus growth of clinically insignificant bacterial katja. (.) [facility] Organism ESCHERICHIA COLI [facility] Organism PSEUDOMONAS AERUGINOSA [facility] Organism PLUS GROWTH OF CLINICALLY INSIGNIFICANT KATJA. [facility] Tracheal aspirate 12/31/2024 4:34 PM CDT 12/31/2024 6:04 PM CDT Narrative [facility] - 01/03/2025 2:38 PM CDT When rapid molecular testing results are reported, testing completed using the [employer] Pneumonia Panel. This molecular assay detects: Acinetobacter [...] results and susceptibility testing is recommended. The [employer] Pneumonia Panel is cleared by the [place] Food and Drug Administration and its performance characteristics have been confirmed by the [facility]. The performance of the [employer] Pneumonia Panel has not been established for [...] OR DERABLES Final Result Performing Organization Address City/[facility] Co de Phone Number CYNTHIA [facility] Department [place] [address] * POCT glucose (12/31/2024 4:09 PM CDT) [facility] Glucose, POC 124 70 - 199 mg/dL Blood 12/31/2024 4:09 PM CDT 12/31/2024 4:09 PM CDT Parth Dalton MD LAB POCT ORDERABLES - DEVICE Final Result Performing Organization Address [facility] Co de Phone Number CYNTHIA [facility] [place] [address] * TRANSTHORACIC ECHO (TTE) COMPLETE W DOPPLER/CF W CONTRAST (12/31/2024 3:30 PM CDT) [facility] Estimated EF 55-60 % CONS SCIMAGE EF Mod BP 58 % CONS SCIMAGE Anatomical Region Laterality Modality Ultrasound 12/31/2024 1:39 PM CDT Narrative 12/31/2024 4:40 PM CDT [facility] [place]iac [place] [address] Transthoracic Echocardiographic Report Patient Name: MEGAN TITUS G : 1950 (74y 11m) Sex: M Study Date: 12/31/2024 01:39:18 PM Ht(Inch): 70 Wt(Lb): 216.05 BSA: 2.2 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: [employer] Location: [id number] Order Provider: DEVYN PALACIOS Heart Rate: 112 [...] Procedure Note Nel Ross MD - 12/31/2024 [facility] [place] [address] Transthoracic Echocardiographic Report Patient Name: MEGAN TITUS G : 1950 (74y 11m) Sex: M Study Date: 12/31/2024 01:39:18 PM Ht(Inch): 70 Wt(Lb): 216.05 BSA: 2.2 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 Current interpretive data was last revised 2019. Blood 12/31/2024 1:35 PM CDT 12/31/2024 1:41 PM CDT Magy Kaur [employer] LAB BLOOD ORDERABLES F inal Result [facility] Department [place] [address] * Potassium, whole blood (12/31/2024 1:35 PM CDT) Pathologist [facility] [place] Potassium, bld 4.2 3.3 - 4.9 mmol/L Blood 12/31/2024 1:35 PM CDT 12/31/2024 1:41 PM CDT Jyotsna Salazar [employer] LAB BLOOD ORDERABLES Final Result [facility] Department [place] [address] * (ABNORMAL) Blood gas, venous (12/31/2024 1:35 PM CDT) pH, Venous 7.41 7.32 - 7.43 PCO2, Venous 36(L) 40 - 50 mmHg [facility] PO2, Venous 37 mmHg [facility] Comment: Interpretive Data No Reference Range Established Current Interpretive Data was last revised on 2017. HCO3 Venous, Calculated 23 20 - 30 mmol/L [facility] BE, venous -2 mmol/L [facility] Comment: Interpretive Data No Reference Range Established Current Interpretive Data was last revised on 2017. Blood 12/31/2024 1:35 PM CDT 12/31/2024 1:41 PM CDT Devyn Palacios [employer] LAB BLOOD ORDERABLES Final Re sult Performing Organization Address [facility] Co de Phone Number [facility] [place] [address] * Potassium, whole blood (12/31/2024 11:38 AM CDT) Potassium, bld 4.3 3.3 - 4.9 mmol/L Blood 12/31/2024 11:3 8 AM CDT 12/31/2024 11:45 AM CDT Jyotsna Salazar [employer] DES[employer] LAB BLOOD ORDERABLES Final Result Performing Organization Address [facility] de Phone Number [facility] [place] [address] * POCT glucose (12/31/2024 11:36 AM CDT) Glucose, POC 103 70 - 199 mg/dL Blood 12/31/2024 11:3 6 AM CDT 12/31/2024 11:36 AM CDT Parth Dalton MD LAB POCT ORDERABLES - DEVICE Final Result Performing Organization Address [facility] de Phone Number [facility] [place] [address] * XR Abdomen 1 View AP (12/31/2024 [...] it. Electronically signed by: Dee Smith M.D. [facility] [employer] DESIGNER IMG XR PROCEDURES Final Resul t * [...] signed by: Vasquez Yusuf M.D. Devyn Palacios [employer] DES[employer] IMG XR PROCEDURES Final Resul t * Oxyhemoglobin, central venous (12/31/2024 9:59 AM CDT) Oxyhemoglobin, CV 46.5 % Comment: Interpretive Data No reference range established. Current interpretive data was last revised 2019. Blood 12/31/2024 9:59 AM CDT 12/31/2024 10:05 AM CDT Devyn Palacios [employer] DES[employer] LAB BLOOD ORDERABLES Final Re sult Performing Organization Address City/[facility]/ZIP Co de Phone Number [facility] Department [place] [address] * Potassium, whole blood (12/31/2024 9:59 AM CDT) Potassium, bld 4.6 3.3 - 4.9 mmol/L Blood 12/31/2024 9:59 AM CDT 12/31/2024 10:05 AM CDT Magy Kaur [employer] DES[employer] LAB BLOOD ORDERABLES F inal Result Performing Organization Address [facility] Co de Phone Number [facility] Department [place] [address] * eGFR (12/31/2024 9:59 AM CDT) eGFR [...] 10:24 AM CDT us Thoa Thi Palacios [employer] DES[employer] LAB BLOOD ORDERABLES Final Re sult Performing Organization Address [facility] Co de Phone Number [facility] [place] [address] * Lactate, whole blood (12/31/2024 9:59 AM CDT) Lactate, bld 1.5 0.7 - 2.0 mmol/L Blood 12/31/2024 9:59 AM CDT 12/31/2024 10:05 AM CDT Thoa Thi Palacios [employer] DES[employer] LAB BLOOD ORDERABLES Final Re sult Performing Organization Address [facility] de Phone Number [facility] [place] [address] * Protime-INR (12/31/2024 9:59 AM CDT) PT 12.4 10.2 - 13.5 sec INR 1.10 0.90 - 1.20 [facility] Comment: Interpretive data Oral anticoagulant therapeutic ranges: Venous thromboembolism prophylaxis or treatment: 2.0-3.0 CARDIOLOGY Standard range: 2.0-3.0 High-intensity range: 2.5-3.5 Refer to indication-specific guidelines for appropriate target ranges for prosthetic heart valve replacement. Current interpretive data was last revised on 2019. Blood 12/31/2024 9:59 AM CDT 12/31/2024 10:05 AM CDT us Thoa Thi Palacios [employer] LAB BLOOD ORDERABLES Final Re sult Performing Organization Address [facility] de Phone Number [facility] [place] [address] * (ABNORMAL) CBC without differential (12/31/2024 9:59 AM CDT) WBC 5.78 3.80 - 9.90 K/cumm Hgb 8.7(L) 13.0 - 17.5 g/dL [facility] Hct 26.2(L) 38.9 - 50.3 % [facility] Plt 96(L) 150 - 400 K/cumm [facility] MPV 11.1 9.1 - 12.3 fL [facility] RBC 2.54(L) 4.30 - 5.80 M/cumm [facility] MCV 103.1(H) 81.3 - 96.4 fL [facility] MCH 34.3(H) 27.1 - 33.3 pg [facility] MCHC 33.2 32.3 - 35.7 g/dL [facility] RDW CV 14.6 11.1 - 14.9 % [facility] RDW SD 54.7(H) 35.7 - 48.1 fL [facility] NRBC abs 0.00 0.00 - 0.01 K/cumm [facility] Blood 12/31/2024 9:59 AM CDT 12/31/2024 10:24 AM CDT us Devyn Palacios [employer] LAB BLOOD ORDERABLES Final Re sult [facility] Department [place] [address] * Type and screen (12/31/2024 9:59 AM CDT) ABO Rh A Positive Becca, indirect Negative [facility] Blood 12/31/2024 9:59 AM CDT 12/31/2024 10:57 AM CDT Narrative [facility] - 12/31/2024 11:42 AM CDT Has the patient had Daratumumab or Isatuximab in the past 6 months?->[facility]LOOD BANK TEST ORDERABLE S Final Result [facility] Department [place] [address] * Blood gas, venous (12/31/2024 9:59 AM CDT) pH, Venous 7.36 7.32 - 7.43 PCO2, Venous 40 40 - 50 mmHg [facility] PO2, Venous 37 mmHg [facility] Comment: Interpretive Data No Reference Range Established Current Interpretive Data was last revised on 2017. HCO3 Venous, Calculated 23 20 - 30 mmol/L [facility] BE, venous -2 mmol/L [facility] Comment: Interpretive Data No Reference Range Established Current Interpretive Data was last revised on 2017. Blood 12/31/2024 9:59 AM CDT 12/31/2024 10:05 AM CDT [facility] LAB BLOOD ORDERABLES Final Re sult [facility] Department [place] [address] * (ABNORMAL) Comprehensive metabolic panel (12/31/2024 9:59 AM CDT) Sodium 137 135 - 145 mmol/L Potassium, pl 4.4 3.3 - 4.9 mmol/L [facility] Chloride 106 97 - 110 mmol/L [facility] CO2 22 22 - 32 mmol/L [facility] Anion gap 9 2 - 15 mmol/L [facility] BUN 23 6 - 25 mg/dL [facility] Creatinine 1.17 0.80 - 1.30 mg/dL [facility] Glucose 95 70 - 199 mg/dL [facility] Comment: Interpretive Data Fasting glucose >/= 126 [...] Calcium 8.4(L) 8.5 - 10.3 mg/dL [facility] Bilirubin, total 0.7 0.1 - 1.2 mg/dL [facility] Protein, pl 5.7(L) 6.5 - 8.5 g/dL [facility] Albumin 3.3(L) 3.5 - 5.0 g/dL [facility] Alk phos 30(L) 40 - 130 Units/L [facility] ALT 14 7 - 55 Units/L [facility] AST 32 10 - 50 Units/L [facility] Blood 12/31/2024 9:59 AM CDT 12/31/2024 10:24 AM CDT us Devyn Palacios NP LAB BLOOD ORDERABLES Final Re sult [facility] [place] [address] * Critical Care (12/31/2024 9:54 AM CDT) [...] plan with the ICU team and other medical/informatics consultant staff, making frequent assessments and decisions [...] in the medical record us Devyn Palacios [employer] DESIGNER IN CLINIC/BEDSIDE ORDERABLES Final Result * POCT glucose (12/31/2024 8:36 AM CDT) Glucose, POC 92 70 - 199 mg/dL Blood 12/31/2024 8:36 AM CDT 12/31/2024 8:36 AM CDT Parth Dalton MD LAB POCT ORDERABLES - DEVICE Final Result Performing Organization Address [facility] Co de Phone Number [facility] [place] [address] * Oxyhemoglobin, central venous (12/31/2024 4:11 AM CDT) Oxyhemoglobin, CV 44.5 % Comment: Interpretive Data No reference range established. Current interpretive data was last revised 2019. Blood 12/31/2024 4:11 AM CDT 12/31/2024 4:31 AM CDT Magy Kaur [employer] DES[employer] LAB BLOOD ORDERABLES F inal Result Performing Organization Address [facility] Co de Phone Number [facility] [place] [address] * Potassium, whole blood (12/31/2024 4:11 AM CDT) Potassium, bld 3.9 3.3 - 4.9 mmol/L Blood 12/31/2024 4:11 AM CDT 12/31/2024 4:31 AM CDT Jyotsna Salazar [employer] LAB BLOOD ORDERABLES Final Result Performing Organization Address [facility] Co de Phone Number [facility] [place] [address] * POCT glucose (12/31/2024 4:09 AM CDT) Glucose, POC 114 70 - 199 mg/dL Blood 12/31/2024 4:09 AM CDT 12/31/2024 4:09 AM CDT Parth Dalton MD LAB POCT ORDERABLES - DEVICE Final Result Performing Organization Address [facility] de Phone Number [facility] Department [place] [address] * POCT glucose (12/30/2024 11:44 PM CDT) [facility] Glucose, POC 118 70 - 199 mg/dL Blood 12/30/2024 11:4 4 PM CDT 12/30/2024 11:44 PM CDT Parth Dalton MD LAB POCT ORDERABLES - DEVICE Final Result Performing Organization Address [facility] de Phone Number [facility] [place] [address] * (ABNORMAL) CBC without differential (12/30/2024 8:10 PM CDT) [facility] WBC 5.98 3.80 - 9.90 K/cumm Hgb 8.7(L) 13.0 - 17.5 g/dL [facility] Hct 25.8(L) 38.9 - 50.3 % [facility] Plt 84(L) 150 - 400 K/cumm [facility] MPV 10.9 9.1 - 12.3 fL [facility] RBC 2.51(L) 4.30 - 5.80 M/cumm [facility] MCV 102.8(H) 81.3 - 96.4 fL [facility] MCH 34.7(H) 27.1 - 33.3 pg [facility] MCHC 33.7 32.3 - 35.7 g/dL [facility] RDW CV 14.6 11.1 - 14.9 % [facility] RDW SD 55.1(H) 35.7 - 48.1 fL [facility] NRBC abs 0.00 0.00 - 0.01 K/cumm [facility] Blood 12/30/2024 8:10 PM CDT 12/30/2024 8:34 PM CDT Rosa Beltran NP LAB BLOOD ORDERABLES Final Re sult Performing Organization Address City/[facility]/ZIP Co de Phone Number [facility] Department [place] [address] * Type and screen (12/30/2024 8:10 PM CDT) [facility] Becca, indirect Negative ABO Rh A Positive [facility] Blood 12/30/2024 8:10 PM CDT 12/30/2024 8:35 PM CDT Narrative [facility] - 12/30/2024 9:29 PM CDT Has the patient had Daratumumab or Isatuximab in the past 6 months?->Unknown Rosa Beltran NP LAB BLOOD BANK TEST ORDERABLE S Final Result [facility] [place] [address] * eGFR (12/30/2024 8:08 PM CDT) [facility] eGFR 60 >=60 mL/min/1. 73 m2 Comment: [...] LAB BLOOD ORDERABLES Final Re sult CYNTHIA [facility] [place] [address] * Phosphorus (12/30/2024 8:08 PM CDT) Phosphorus, pl 3.4 2.3 - 4.5 mg/dL Blood 12/30/2024 8:08 PM CDT 12/30/2024 8:34 PM CDT Marsha Villarreal [employer] LAB BLOOD ORDERABLES Final Re sult CYNTHIA [facility] [place] [address] * Magnesium (12/30/2024 8:08 PM CDT) Magnesium 2.2 1.4 - 2.5 mg/dL Blood 12/30/2024 8:08 PM CDT 12/30/2024 8:34 PM CDT Marsha Villarreal NP LAB BLOOD ORDERABLES Final Re sult Performing Organization Address [facility] Co de Phone Number [facility] Department [place] [address] * Basic metabolic panel (12/30/2024 8:08 PM CDT) Pathologist [facility] [place] Sodium 139 135 - 145 mmol/L Potassium, pl 4.1 3.3 - 4.9 mmol/L [facility] Chloride 106 97 - 110 mmol/L [facility] CO2 23 22 - 32 mmol/L [facility] Anion gap 10 2 - 15 mmol/L [facility] BUN 23 6 - 25 mg/dL [facility] Creatinine 1.25 0.80 - 1.30 mg/dL [facility] Glucose 112 70 - 199 mg/dL [facility] Comment: Interpretive Data Fasting glucose >/= 126 [...] 2022. Calcium 8.5 8.5 - 10.3 mg/dL [facility] Blood 12/30/2024 8:08 PM CDT 12/30/2024 8:34 PM CDT Marsha Villarreal NP LAB BLOOD ORDERABLES Final Re sult Performing Organization Address [facility] Co de Phone Number [facility] Department [place] [address] * POCT glucose (12/30/2024 7:41 PM CDT) Glucose, POC 94 70 - 199 mg/dL Blood 12/30/2024 7:41 PM CDT 12/30/2024 7:41 PM CDT us Parth Dalton MD LAB POCT ORDERABLES - DEVICE Final Result CYN[facility]IA [facility] [place] [address] * XR Chest 1 View (12/30/2024 6:25 [...] signed by: Toby Horan M.D. Mary Swift [employer] DESIGN[employer] IMG XR PROCEDURES F inal Result * [...] Dee Smith M.D. us Marsha TedKarlene Villarreal [employer] DESIGNER IMG XR PROCEDURES Final Resul t * [...] [facility] Neutrophil pct 87.2 % [facility] Comment: Interpretive Data Percent cell count reference ranges are not reported, since discordance with absolute values may lead to misinterpretation of CBC data. Current Interpretive Data was last revised on 2017. Imm gran pct 0.6 % [facility] Comment: Interpretive Data Percent cell count reference ranges are not reported, since discordance with absolute values may lead to misinterpretation of CBC data. Current Interpretive Data was last revised on 2017. Lymphocyte pct 4.8 % [facility] Comment: Interpretive Data Percent cell count reference ranges are not reported, since discordance with absolute values may lead to misinterpretation of CBC data. Current Interpretive Data was last revised on 2017. Monocyte pct 7.2 % [facility] Comment: Interpretive Data Percent cell count reference ranges are not reported, since discordance with absolute values may lead to misinterpretation of CBC data. Current Interpretive Data was last revised on 2017. Eosinophil pct 0.1 % [facility] Comment: Interpretive Data Percent cell count reference ranges are not reported, since discordance with absolute values may lead to misinterpretation of CBC data. Current Interpretive Data was last revised on 2017. Basophil pct 0.1 % [facility] Comment: Interpretive Data Percent cell count reference ranges are not reported, since discordance with absolute values may lead to misinterpretation of CBC data. Current Interpretive Data was last revised on 2017. Blood 12/30/2024 5:25 PM CDT 12/30/2024 5:37 PM CDT Marsha Villarreal NP LAB BLOOD ORDERABLES Final Re sult Performing Organization Address City/[facility]/ZIP Co de Phone Number [facility] [place] [address] * (ABNORMAL) CBC with auto differential (12/30/2024 5:25 PM CDT) WBC 6.90 3.80 - 9.90 K/cumm Hgb 8.6(L) 13.0 - 17.5 g/dL [facility] Hct 25.8(L) 38.9 - 50.3 % [facility] Plt 91(L) 150 - 400 K/cumm [facility] MPV 10.7 9.1 - 12.3 fL [facility] RBC 2.48(L) 4.30 - 5.80 M/cumm [facility] MCV 104.0(H) 81.3 - 96.4 fL [facility] MCH 34.7(H) 27.1 - 33.3 pg [facility] MCHC 33.3 32.3 - 35.7 g/dL [facility] RDW CV 14.6 11.1 - 14.9 % [facility] RDW SD 55.3(H) 35.7 - 48.1 fL [facility] NRBC abs 0.00 0.00 - 0.01 K/cumm [facility] Blood 12/30/2024 5:25 PM CDT 12/30/2024 5:37 PM CDT Marsha Villarreal NP LAB BLOOD ORDERABLES Final Re sult [facility] [place] [address] * (ABNORMAL) eGFR (12/30/2024 5:21 PM CDT) [...] 12/30/2024 5:53 PM CDT us Marsha Villarreal [employer] DES[employer] LAB BLOOD ORDERABLES Final Re sult Performing Organization Address [facility] Co de Phone Number [facility] [place] [address] * Magnesium (12/30/2024 5:21 PM CDT) Pathologist [facility] [place] Magnesium 2.2 1.4 - 2.5 mg/dL Blood 12/30/2024 5:21 PM CDT 12/30/2024 5:53 PM CDT us Parth Dalton MD LAB BLOOD ORDERABLES Final Re sult Performing Organization Address [facility] Co de Phone Number [facility] Department [place] [address] * Basic metabolic panel (12/30/2024 5:21 PM CDT) Sodium 141 135 - 145 mmol/L Potassium, pl 4.4 3.3 - 4.9 mmol/L [facility] Chloride 108 97 - 110 mmol/L [facility] CO2 23 22 - 32 mmol/L [facility] Anion gap 10 2 - 15 mmol/L [facility] BUN 23 6 - 25 mg/dL [facility] Creatinine 1.27 0.80 - 1.30 mg/dL [facility] Glucose 118 70 - 199 mg/dL [facility] Comment: Interpretive Data Fasting glucose >/= 126 [...] 2022. Calcium 8.9 8.5 - 10.3 mg/dL [facility] Blood 12/30/2024 5:21 PM CDT 12/30/2024 5:53 PM CDT Marsha Villarreal NP LAB BLOOD ORDERABLES Final Re sult [facility] Department [place] [address] * Oxyhemoglobin, central venous (12/30/2024 5:20 PM CDT) Oxyhemoglobin, CV 53.9 % Comment: Interpretive Data No reference range established. Current interpretive data was last revised 2019. Blood 12/30/2024 5:20 PM CDT 12/30/2024 5:33 PM CDT Marsha D. Huchel [employer]ARD DESIGNER LAB BLOOD ORDERABLES Final Re sult Performing Organization Address [facility] Co de Phone Number [facility] Department [place] [address] * Potassium, whole blood (12/30/2024 5:18 PM CDT) Potassium, bld 4.3 3.3 - 4.9 mmol/L Blood 12/30/2024 5:18 PM CDT 12/30/2024 5:33 PM CDT Marsha Villarreal [employer] LAB BLOOD ORDERABLES Final Re sult Performing Organization Address [facility] de Phone Number [facility] Department [place] [address] * POCT glucose (12/30/2024 4:29 PM CDT) Glucose, POC 94 70 - 199 mg/dL Blood 12/30/2024 4:29 PM CDT 12/30/2024 4:29 PM CDT us Parth Dalton MD LAB POCT ORDERABLES - DEVICE Final Result Performing Organization Address [facility] de Phone Number [facility] Department [place] [address] * Oxyhemoglobin, central venous (12/30/2024 12:04 PM CDT) Oxyhemoglobin, CV 64.8 % Comment: Interpretive Data No reference range established. Current interpretive data was last revised 2019. Blood 12/30/2024 12:0 4 PM CDT 12/30/2024 12:12 PM CDT us Magy Kaur [employer] LAB BLOOD ORDERABLES F inal Result Performing Organization Address [facility] [place] [address] * Potassium, whole blood (12/30/2024 12:04 PM CDT) Potassium, bld 4.1 3.3 - 4.9 mmol/L Blood 12/30/2024 12:0 4 PM CDT 12/30/2024 12:12 PM CDT us Parth Dalton MD LAB BLOOD ORDERAB[place] [address] * POCT glucose (12/30/2024 12:03 PM CDT) Glucose, POC 130 70 - 199 mg/dL Blood 12/30/2024 12:0 3 PM CDT 12/30/2024 12:03 PM CDT us Parth Dalton MD LAB POCT ORDERABLES - DEVICE Final Result Performing Organization Address [facility]/[place] [address] * Potassium, whole blood (12/30/2024 7:45 AM CDT) Potassium, bld 3.8 3.3 - 4.9 mmol/L Blood 12/30/2024 7:45 AM CDT 12/30/2024 7:52 AM CDT us Jyotsna Salazar NP LAB BLOOD [place] [address] * POCT glucose (12/30/2024 7:45 AM CDT) Glucose, POC 132 70 - 199 mg/dL Blood 12/30/2024 7:45 AM CDT 12/30/2024 7:45 AM CDT Parth Dalton MD LAB POCT ORDERABLES - DEVICE Final Result Performing Organization Address [facility] de Phone Number [facility] Department [place] [address] * (ABNORMAL) Blood gas, arterial (12/30/2024 7:45 AM CDT) Pathologist [facility] [place] pH, Art 7.43 7.35 - 7.45 PCO2, Arterial 31(L) 35 - 45 mmHg [facility] PO2, Arterial 153(H) 83 - 108 mmHg [facility] HCO3 Art (Calculated) 21 20 - 30 mmol/L [facility] BE, art -3 mmol/L [facility] Comment: Interpretive Data No Reference Range Established Current Interpretive Data was last revised on 2017 O2 Sat Art (Measured) 100(H) 90 - 95 % [facility] Blood 12/30/2024 7:45 AM CDT 12/30/2024 7:52 AM CDT Result [facility] Magy Kaur NP LAB BLOOD ORDERABLES F inal Result Performing Organization Address [facility] de Phone Number [facility] Department [place] [address] * Critical Care (12/30/2024 6:54 AM CDT) [...] plan with the ICU team and other medical/informatics consultant staff, making frequent assessments and decisions [...] - DEVICE Final Result Performing Organization Address [facility] Co de Phone Number [facility] Department [place] [address] * Oxyhemoglobin, central venous (12/30/2024 1:10 AM CDT) Oxyhemoglobin, CV 73.6 % Comment: Interpretive Data No reference range established. Current interpretive data was last revised 2019. Blood 12/30/2024 1:10 AM CDT 12/30/2024 1:23 AM CDT Magy Kaur [employer] LAB BLOOD ORDERABLES F inal Result Performing Organization Address [facility] Co de Phone Number [facility] Department [place] [address] * POCT glucose (12/30/2024 12:16 AM CDT) Glucose, POC 134 70 - 199 mg/dL Blood 12/30/2024 12:1 6 AM CDT 12/30/2024 12:16 AM CDT Parth Dalton MD LAB POCT ORDERABLES - DEVICE Final Result Performing Organization Address City/[facility]/ZIP Co de Phone Number [facility] [place] [address] * Potassium, whole blood (12/30/2024 12:12 AM CDT) Potassium, bld 4.2 3.3 - 4.9 mmol/L Blood 12/30/2024 12:1 2 AM CDT 12/30/2024 12:35 AM CDT Magy Kaur NP LAB BLOOD ORDERABLES F inal Result Performing Organization Address [facility] Co de Phone Number [facility] Department [place] [address] * eGFR (12/30/2024 12:12 AM CDT) eGFR [...] CDT 12/30/2024 12:40 AM CDT Magy Kaur [employer] LAB BLOOD ORDERABLES F inal Result Performing Organization Address [facility] Co de Phone Number [facility] Department [place] [address] * (ABNORMAL) CBC without differential (12/30/2024 12:12 AM CDT) WBC 5.93 3.80 - 9.90 K/cumm Hgb 9.1(L) 13.0 - 17.5 g/dL [facility] Hct 26.7(L) 38.9 - 50.3 % [facility] Plt 87(L) 150 - 400 K/cumm [facility] MPV 10.7 9.1 - 12.3 fL [facility] RBC 2.60(L) 4.30 - 5.80 M/cumm [facility] MCV 102.7(H) 81.3 - 96.4 fL [facility] MCH 35.0(H) 27.1 - 33.3 pg [facility] MCHC 34.1 32.3 - 35.7 g/dL [facility] RDW CV 14.7 11.1 - 14.9 % [facility] RDW SD 55.4(H) 35.7 - 48.1 fL [facility] NRBC abs 0.00 0.00 - 0.01 K/cumm [facility] Blood 12/30/2024 12:1 2 AM CDT 12/30/2024 12:41 AM CDT Magy Kaur NP LAB BLOOD ORDERABLES F inal Result [facility] [place] [address] * Phosphorus (12/30/2024 12:12 AM CDT) Pathologist [facility] [place] Phosphorus, pl 3.8 2.3 - 4.5 mg/dL Blood 12/30/2024 12:1 2 AM CDT 12/30/2024 12:40 AM CDT Magy Kaur [employer] LAB BLOOD ORDERABLES F inal Result Performing Organization Address [facility] de Phone Number [facility] [place] [address] * Magnesium (12/30/2024 12:12 AM CDT) [facility] Magnesium 2.5 1.4 - 2.5 mg/dL Blood 12/30/2024 12:1 2 AM CDT 12/30/2024 12:40 AM CDT Magy Kaur [employer] LAB BLOOD ORDERABLES F inal Result Performing Organization Address [facility] de Phone Number [facility] [place] [address] * (ABNORMAL) Blood gas, arterial (12/30/2024 12:12 AM CDT) [facility] pH, Art 7.39 7.35 - 7.45 PCO2, Arterial 36 35 - 45 mmHg [facility] PO2, Arterial 81(L) 83 - 108 mmHg [facility] HCO3 Art (Calculated) 22 20 - 30 mmol/L [facility] BE, art -3 mmol/L [facility] Comment: Interpretive Data No Reference Range Established Current Interpretive Data was last revised on 2017 O2 Sat Art (Measured) 96(H) 90 - 95 % [facility] Blood 12/30/2024 12:1 2 AM CDT 12/30/2024 12:35 AM CDT Magy Kaur NP LAB BLOOD ORDERABLES F inal Result Performing Organization Address [facility]/ZIP Co de Phone Number [facility] Department [place] [address] * Basic metabolic panel (12/30/2024 12:12 AM CDT) [facility] Sodium 140 135 - 145 mmol/L Potassium, pl 4.3 3.3 - 4.9 mmol/L [facility] Chloride 108 97 - 110 mmol/L [facility] CO2 22 22 - 32 mmol/L [facility] Anion gap 10 2 - 15 mmol/L [facility] BUN 19 6 - 25 mg/dL [facility] Creatinine 1.11 0.80 - 1.30 mg/dL [facility] Glucose 126 70 - 199 mg/dL [facility] Comment: Interpretive Data Fasting glucose >/= 126 [...] 2022. Calcium 9.4 8.5 - 10.3 mg/dL [facility] Blood 12/30/2024 12:1 2 AM CDT 12/30/2024 12:40 AM CDT Magy Kaur [employer] LAB BLOOD ORDERABLES F inal Result Performing Organization Address [facility] Co de Phone Number [facility] Department [place] [address] * Oxyhemoglobin, central venous (12/29/2024 9:22 PM CDT) Oxyhemoglobin, CV 59.4 % Comment: Interpretive Data No reference range established. Current interpretive data was last revised 2019. Blood 12/29/2024 9:22 PM CDT 12/29/2024 9:44 PM CDT us Magy Lux Annettemagdalena [employer] DES[employer]ER LAB BLOOD ORDERABLES F inal Result [facility] Department [place] [address] * XR Chest 1 View (12/29/2024 8:27 PM CDT) Anatomical Region Laterality Modality Body, Chest N/A Computed Radiogr aphy 12/30/2024 6:48 AM CDT Impressions 12/30/2024 6:48 AM CDT Sternal fixation plates, left atrial appendage clip, and tracheostomy tube again seen. Removal of Dudley-Salma catheter. Right internal jugular catheter tip in [...] and tracheostomy tube again seen. Removal of Dudley-Salma catheter. Right internal jugular catheter tip in [...] signed by: Yaya Ahumada M.D. Mary Swift [employer] DESIGNER IMG XR PROCEDURES F inal Result * POCT glucose (12/29/2024 7:43 PM CDT) [facility] Glucose, POC 131 70 - 199 mg/dL Blood 12/29/2024 7:43 PM CDT 12/29/2024 7:43 PM CDT Parth Dalton MD LAB POCT ORDERABLES - DEVICE Final Result [facility] Department [place] [address] * (ABNORMAL) POC Blood Gas and Chemistries, Arterial - (12/29/2024 6:27 PM CDT) [facility] pH, Art POC 7.34(L) 7.35 - 7.45 pCO2, Art POC 39 35 - 45 mmHg [facility] pO2, Art POC 91 83 - 108 mmHg [facility] Na, POC 140 135 - 145 mmol/L [facility] K POC 4.1 3.3 - 4.9 mmol/L [facility] Comment: Interpretive Data Not all point of care methods assess for hemolysis. Confirm with instrument and retest K+ if not consistent with clinical signs and symptoms. Current Interpretive Data was last revised on 2023. Cl, POC 113(H) 97 - 110 mmol/L [facility] Ionized Ca, POC 4.64 4.50 - 5.10 mg/dL [facility] Glucose, POC 126 70 - 199 mg/dL [facility] Lactate POC 1.1 0.7 - 2.0 mmol/L [facility] SO2 (felipe) arterial 99(H) 90 - 95 % [facility] Base excess, POC -4.4 mmol/L [facility] HCO3, Art POC 21 20 - 30 mmol/L [facility] Hct, POC 28.0(L) 41.4 - 51.6 % [facility] Total Hb, POC 9.3(L) 13.8 - 17.2 g/dL [facility] Blood 12/29/2024 6:27 PM CDT 12/29/2024 6:27 PM CDT Result [facility] Parth Dalton MD LAB POCT ORDERABLES - DEVICE Final Result Performing Organization Address [facility] Co de Phone Number [facility] [place] [address] * POCT glucose (12/29/2024 4:05 PM CDT) Glucose, POC 131 70 - 199 mg/dL Blood 12/29/2024 4:05 PM CDT 12/29/2024 4:05 PM CDT Result [facility] Parth Dalton MD LAB POCT ORDERABLES - DEVICE Final Result Performing Organization Address [facility] de Phone Number [facility] [place] [address] * Oxyhemoglobin, central venous (12/29/2024 4:00 PM CDT) Oxyhemoglobin, CV 68.2 % Comment: Interpretive Data No reference range established. Current interpretive data was last revised 2019. Blood 12/29/2024 4:00 PM CDT 12/29/2024 4:15 PM CDT Result [facility] Magy Kaur [employer] DES[employer] LAB BLOOD ORDERABLES F inal Result Performing Organization Address [facility] Co de Phone Number [facility] [place] [address] * Potassium, whole blood (12/29/2024 4:00 PM CDT) Potassium, bld 4.3 3.3 - 4.9 mmol/L Blood 12/29/2024 4:00 PM CDT 12/29/2024 4:16 PM CDT Parth Dalton MD LAB BLOOD ORDERABLES Final Re sult Performing Organization Address [facility] Co de Phone Number [facility] [place] [address] * eGFR (12/29/2024 4:00 PM CDT) eGFR [...] ORDERABLES Final Re sult Performing Organization Address [facility] Co de Phone Number [facility] Department [place] [address] * Triglycerides (12/29/2024 4:00 PM CDT) Triglycerides [...] CDT 12/29/2024 4:16 PM CDT Narrative [facility] - 12/29/2024 4:52 PM CDT While on propofol infusion. us Magy Kaur [employer] DES[employer] LAB BLOOD ORDERABLES F inal Result [facility] Department of Laboratories [place], [place] [id number] * (ABNORMAL) Magnesium (12/29/2024 4:00 PM CDT) Pathologist [facility] [place] Magnesium 2.9(H) 1.4 - 2.5 mg/dL Blood 12/29/2024 4:00 PM CDT 12/29/2024 4:22 PM CDT us Seema Palma DNP LAB BLOOD ORDERABLES Fi nal Result [facility] Department [place] [address] * (ABNORMAL) Basic metabolic panel (12/29/2024 4:00 PM CDT) Sodium 144 135 - 145 mmol/L Potassium, pl 4.6 3.3 - 4.9 mmol/L [facility] Chloride 111(H) 97 - 110 mmol/L [facility] CO2 24 22 - 32 mmol/L [facility] Anion gap 9 2 - 15 mmol/L [facility] BUN 21 6 - 25 mg/dL [facility] Creatinine 1.24 0.80 - 1.30 mg/dL [facility] Glucose 121 70 - 199 mg/dL [facility] Comment: Interpretive Data Fasting glucose >/= 126 [...] 2022. Calcium 8.5 8.5 - 10.3 mg/dL [facility] Blood 12/29/2024 4:00 PM CDT 12/29/2024 4:16 PM CDT Parth Dalton MD LAB BLOOD ORDERABLES Final Re sult Performing Organization Address [facility]/ZIP Co de Phone Number [facility] Department [place] [address] * POCT glucose (12/29/2024 11:57 AM CDT) Glucose, POC 111 70 - 199 mg/dL Blood 12/29/2024 11:5 7 AM CDT 12/29/2024 11:57 AM CDT us Parth Dalton MD LAB POCT ORDERABLES - DEVICE Final Result Performing Organization Address [facility]/ZIP Co de Phone Number [facility] Department [place] [address] * ECG 12 lead (12/29/2024 10:15 AM CDT) Ventricular Rate EKG/Min 95 BPM [facility] Atrial Rate 95 BPM [facility] MI-Interval (MSEC) 170 ms [facility] QRS-Interval (MSEC) 80 ms [facility] QT-Interval (MSEC) 368 ms [facility] QTc 462 ms [facility] P [place] 38 degrees [facility] R [place] -31 degrees [facility] T [place] -6 degrees [facility] Diagnosis Sinus rhythm with occasional ventricular-pac ed complexes and with occasional Premature ventricular complexes and Premature atrial complexes Left axis deviation Inferior infarct , age undetermined ST & T wave abnormality, consider anterior ischemia Abnormal ECG When compared with ECG of 26-DEC-2024 13:43, Electronic ventricular pacemaker has replaced Atrial fibrillation Confirmed by JENAE GRACE M.D ([id number]) on 01/01/2025 6:10:53 PM [facility] 12/29/2024 10:1 5 AM CDT 01/01/2025 6:10 PM CDT us Magy Kaur [employer] DESIGNER ECG ORDERABLES Final Result [facility] * Critical Care (12/29/2024 8:27 AM [...] plan with the ICU team and other medical/informatics consultant staff, making frequent assessments and decisions [...] 12/29/2024 8:00 AM CDT us Magy Kaur [employer] DESIGN[employer] LAB BLOOD ORDERABLES F inal Result Performing Organization Address [facility]/ZIP Co de Phone Number [facility] [place] [address] * Potassium, whole blood (12/29/2024 7:51 AM CDT) Potassium, bld 4.8 3.3 - 4.9 mmol/L Comment:Hemolyzed; results m ay be falsely elevated. Blood 12/29/2024 7:51 AM CDT 12/29/2024 8:00 AM CDT us Jyotsna Salazar [employer] DES[employer] LAB BLOOD ORDERABLES Final Result [facility] Department [place] [address] * Lactate, whole blood (12/29/2024 7:51 AM CDT) Lactate, bld 1.0 0.7 - 2.0 mmol/L Blood 12/29/2024 7:51 AM CDT 12/29/2024 8:00 AM CDT Seema Palma DNP LAB BLOOD ORDERABLES Fi nal Result Performing Organization Address [facility] Co de Phone Number [facility] [place] [address] * (ABNORMAL) Blood gas, arterial (12/29/2024 7:51 AM CDT) [facility] pH, Art 7.34(L) 7.35 - 7.45 PCO2, Arterial 40 35 - 45 mmHg [facility] PO2, Arterial 150(H) 83 - 108 mmHg [facility] HCO3 Art (Calculated) 22 20 - 30 mmol/L [facility] BE, art -4 mmol/L [facility] Comment: Interpretive Data No Reference Range Established Current Interpretive Data was last revised on 2017 O2 Sat Art (Measured) 99(H) 90 - 95 % [facility] Blood 12/29/2024 7:51 AM CDT 12/29/2024 8:00 AM CDT Result [facility] Magy Kaur [employer] DES[employer] LAB BLOOD ORDERABLES F inal Result Performing Organization Address [facility] Co de Phone Number [facility] Department [place] [address] * POCT glucose (12/29/2024 7:50 AM CDT) [facility] Glucose, POC 119 70 - 199 mg/dL Blood 12/29/2024 7:50 AM CDT 12/29/2024 7:50 AM CDT Parth Dalton MD LAB POCT ORDERABLES - DEVICE Final Result Performing Organization Address [facility] Co de Phone Number [facility] [place] [address] * Oxyhemoglobin, pulmonary artery (12/29/2024 5:49 AM CDT) Oxyhemoglobin, PA 55.8 % Comment: Interpretive Data No reference range established. Current interpretive data was last revised 2019. Blood 12/29/2024 5:49 AM CDT 12/29/2024 6:01 AM CDT Magy Kaur [employer] DES[employer] LAB BLOOD ORDERABLES F inal Result Performing Organization Address [facility]/[place] [address] * Transfuse RBC (12/29/2024 4:50 AM CDT) Blood Mary Swift [employer] DESIGNER BLOOD TRANSFUSION [place] [address] * POCT glucose (12/29/2024 3:44 AM CDT) [facility] Glucose, POC 139 70 - 199 mg/dL Blood 12/29/2024 3:44 AM CDT 12/29/2024 3:44 AM CDT Parth Dalton MD LAB POCT ORDERABLES - DEVICE Final Result Performing Organization Address [facility]/[place] [address] * Prepare RBC: 1 Units (12/29/2024 2:27 AM CDT) Pathologist [facility] [place] Product code [id number] Unit Number [id number] [facility] Product Blood Type APOS [facility] Dispense Status PRESUMED TRANSFUSED [facility] Blood 12/29/2024 2:27 AM CDT 12/29/2024 2:26 AM CDT Narrative [facility] - 12/29/2024 4:01 PM CDT Are special requirements needed? (All products are leukoreduced and CMV- safe)- >No Date required:-[id number] LRRBC # of [id number] Reasons:-Cardiovascular disease, Hgb <8 g/dL} Mary Swift [employer] DESIGNER BLOOD BANK PRODUCT ORDERABLES Final Result [facility] Department [place] [address] * Potassium, whole blood (12/29/2024 12:18 AM CDT) Potassium, bld 4.6 3.3 - 4.9 mmol/L Blood 12/29/2024 12:1 8 AM CDT 12/29/2024 12:26 AM CDT Magy Kaur [employer] DES[employer] LAB BLOOD ORDERABLES F inal Result Performing Organization Address [facility]/ZIP Co de Phone Number [facility] Department [place] [address] * eGFR (12/29/2024 12:18 AM CDT) eGFR [...] CDT 12/29/2024 12:34 AM CDT Magy Kaur [employer] DES[employer] LAB BLOOD ORDERABLES F inal Result [facility] [place] [address] * (ABNORMAL) CBC without differential (12/29/2024 12:18 AM CDT) WBC 4.90 3.80 - 9.90 K/cumm Hgb 7.7(L) 13.0 - 17.5 g/dL [facility] Hct 23.2(L) 38.9 - 50.3 % [facility] Plt 94(L) 150 - 400 K/cumm [facility] MPV 10.1 9.1 - 12.3 fL [facility] RBC 2.24(L) 4.30 - 5.80 M/cumm [facility] MCV 103.6(H) 81.3 - 96.4 fL [facility] MCH 34.4(H) 27.1 - 33.3 pg [facility] MCHC 33.2 32.3 - 35.7 g/dL [facility] RDW CV 14.1 11.1 - 14.9 % [facility] RDW SD 53.0(H) 35.7 - 48.1 fL [facility] NRBC abs 0.00 0.00 - 0.01 K/cumm [facility] Blood 12/29/2024 12:1 8 AM CDT 12/29/2024 12:33 AM CDT Magy Kaur NP LAB BLOOD ORDERABLES F inal Result Performing Organization Address [facility] [place] [address] * Type and screen (12/29/2024 12:18 AM CDT) Becca, indirect Negative ABO Rh A Positive [facility] Blood 12/29/2024 12:1 8 AM CDT 12/29/2024 12:41 AM CDT Narrative [facility] - 12/29/2024 1:41 AM CDT Has the patient had Daratumumab or Isatuximab in the past 6 months?->Unknown Magy Kaur [employer] DESIGN[employer] LAB BLOOD BANK TEST OR DERABLES Final Result Performing Organization Address [facility] [place] [address] * Phosphorus (12/29/2024 12:18 AM CDT) Phosphorus, pl 2.5 2.3 - 4.5 mg/dL Blood 12/29/2024 12:1 8 AM CDT 12/29/2024 12:34 AM CDT Magy Kaur NP LAB BLOOD ORDERABLES F inal Result Performing Organization Address [facility] [place] [address] * Magnesium (12/29/2024 12:18 AM CDT) Magnesium 2.5 1.4 - 2.5 mg/dL Blood 12/29/2024 12:1 8 AM CDT 12/29/2024 12:34 AM CDT Magy Kaur [employer] DES[employer] LAB BLOOD ORDERABLES F inal Result Performing Organization Address [facility] de Phone Number [facility] Department [place] [address] * (ABNORMAL) Blood gas, arterial (12/29/2024 12:18 AM CDT) pH, Art 7.40 7.35 - 7.45 PCO2, Arterial 35 35 - 45 mmHg [facility] PO2, Arterial 135(H) 83 - 108 mmHg [facility] HCO3 Art (Calculated) 23 20 - 30 mmol/L [facility] BE, art -2 mmol/L [facility] Comment: Interpretive Data No Reference Range Established Current Interpretive Data was last revised on 2017 O2 Sat Art (Measured) 99(H) 90 - 95 % [facility] Blood 12/29/2024 12:1 8 AM CDT 12/29/2024 12:26 AM CDT Magy Kaur [employer] DES[employer] LAB BLOOD ORDERABLES F inal Result Performing Organization Address [facility] de Phone Number [facility] Department [place] [address] * (ABNORMAL) Basic metabolic panel (12/29/2024 12:18 AM CDT) [facility] Sodium 142 135 - 145 mmol/L Potassium, pl 4.9 3.3 - 4.9 mmol/L [facility] Chloride 110 97 - 110 mmol/L [facility] CO2 23 22 - 32 mmol/L [facility] Anion gap 9 2 - 15 mmol/L [facility] BUN 19 6 - 25 mg/dL [facility] Creatinine 1.23 0.80 - 1.30 mg/dL [facility] Glucose 128 70 - 199 mg/dL [facility] Comment: Interpretive Data Fasting glucose >/= 126 [...] 2022. Calcium 8.4(L) 8.5 - 10.3 mg/dL [facility] Blood 12/29/2024 12:1 8 AM CDT 12/29/2024 12:34 AM CDT Magy Kaur [employer] DES[employer] LAB BLOOD ORDERABLES F inal Result Performing Organization Address City/[facility]/ZIP Co de Phone Number [facility] [place] [address] * POCT glucose (12/29/2024 12:17 AM CDT) [facility] Signature Glucose, POC 154 70 - 199 mg/dL Blood 12/29/2024 12:1 7 AM CDT 12/29/2024 12:17 AM CDT Parth Dalton MD LAB POCT ORDERABLES - DEVICE Final Result Performing Organization Address City/[facility] Co de Phone Number [facility] Department [place] [address] * XR Chest 1 View (12/28/2024 9:38 PM CDT) Anatomical Region Laterality Modality Body, Chest N/A Computed Radiogr aphy 12/29/2024 7:14 AM CDT Impressions 12/29/2024 7:14 AM CDT The current study is compared with the prior radiograph dated 12/28/2024. Tracheostomy is in place. Sternal plates are present. A Dudley-Salma catheter is in place, tip overlies the [...] in place. Sternal plates are present. A Dudley-Salma catheter is in place, tip overlies the [...] signed by: Meghan Rios M.D. Mary Swift [employer] BOARD DESIGNER IMG XR PROCEDURES F inal Result * Infection Prevention Blanche auris PCR, surveillance Axilla/Groin (12/28/2024 8:22 PM CDT) Blanche auris DNA Not Detected Not Detected [facility] Comment: Interpretive Data Testing performed by [facility] Molecular Infectious Disease Laboratory using the Daquan flaquita 6800 Blanche auris assay. This assay detects DNA from Blanche auris using Real-Time PCR. This assay is laboratory developed and is not cleared by the [place] Food and Drug Administration. The performance characteristics have been verified by the [facility] Molecular Infectious Disease Laboratory. Axilla/Groin 12/28/2024 8:22 PM CDT 12/28/2024 9:23 PM CDT Narrative [facility] - 12/29/2024 12:36 PM CDT Order placed [facility] due to ring surveillance. us Instant Order Generic Provider LAB MICROBIOLOGY - GENERAL ORDERABLES Final Result Performing Organization Address [facility] Co de Phone Number [facility] [place] [address] [facility] * (ABNORMAL) Blood gas, arterial (12/28/2024 8:22 PM CDT) pH, Art 7.40 7.35 - 7.45 PCO2, Arterial 34(L) 35 - 45 mmHg [facility] PO2, Arterial 160(H) 83 - 108 mmHg [facility] HCO3 Art (Calculated) 22 20 - 30 mmol/L [facility] BE, art -3 mmol/L [facility] Comment: Interpretive Data No Reference Range Established Current Interpretive Data was last revised on 2017 O2 Sat Art (Measured) 100(H) 90 - 95 % [facility] Blood 12/28/2024 8:22 PM CDT 12/28/2024 8:27 PM CDT us Magy Kaur NP LAB BLOOD ORDERABLES F inal Result Performing Organization Address [facility] Co de Phone Number [facility] Department [place] [address] * POCT glucose (12/28/2024 7:43 PM CDT) Glucose, POC 134 70 - 199 mg/dL Blood 12/28/2024 7:43 PM CDT 12/28/2024 7:43 PM CDT Parth Dalton MD LAB POCT ORDERABLES - DEVICE Final Result Performing Organization Address [facility] Co de Phone Number [facility] [place] [address] * (ABNORMAL) Magnesium (12/28/2024 6:37 PM CDT) Magnesium 2.9(H) 1.4 - 2.5 mg/dL Blood 12/28/2024 6:37 PM CDT 12/28/2024 6:58 PM CDT Magy Kaur NP LAB BLOOD ORDERABLES F inal Result [facility] Department [place] [address] * Critical Care (12/28/2024 6:27 PM CDT) [...] plan with the ICU team and other medical/informatics consultant staff, making frequent assessments and decisions [...] documenting in the medical record Mary Swift [employer] BOARD DESIGNER IN CLINIC/BEDSIDE O RDERABLES Final Result * (ABNORMAL) POC Blood Gas and Chemistries, Arterial - (12/28/2024 5:25 PM CDT) Pathologist [facility] [place] pH, Art POC 7.31(L) 7.35 - 7.45 pCO2, Art POC 40 35 - 45 mmHg [facility] pO2, Art POC 88 83 - 108 mmHg [facility] Na, POC 141 135 - 145 mmol/L [facility] K POC 3.9 3.3 - 4.9 mmol/L [facility] Comment: Interpretive Data Not all point of care methods assess for hemolysis. Confirm with instrument and retest K+ if not consistent with clinical signs and symptoms. Current Interpretive Data was last revised on 2023. Cl, POC 114(H) 97 - 110 mmol/L [facility] Ionized Ca, POC 4.59 4.50 - 5.10 mg/dL [facility] Glucose, POC 122 70 - 199 mg/dL [facility] Lactate POC 1.4 0.7 - 2.0 mmol/L [facility] SO2 (felipe) arterial 98(H) 90 - 95 % [facility] Base excess, POC -5.7 mmol/L [facility] HCO3, Art POC 20 20 - 30 mmol/L [facility] Hct, POC 28.0(L) 41.4 - 51.6 % [facility] Total Hb, POC 9.3(L) 13.8 - 17.2 g/dL [facility] Blood 12/28/2024 5:25 PM CDT 12/28/2024 5:25 PM CDT Parth Dalton MD LAB POCT ORDERABLES - DEVICE Final Result [facility] Department [place] [address] * (ABNORMAL) POC Blood Gas and Chemistries, Arterial - (12/28/2024 4:24 PM CDT) pH, Art POC 7.26(L) 7.35 - 7.45 pCO2, Art POC 45 35 - 45 mmHg [facility] pO2, Art POC 74(L) 83 - 108 mmHg [facility] Na, POC 141 135 - 145 mmol/L [facility] K POC 4.3 3.3 - 4.9 mmol/L [facility] Comment: Interpretive Data Not all point of care methods assess for hemolysis. Confirm with instrument and retest K+ if not consistent with clinical signs and symptoms. Current Interpretive Data was last revised on 2023. Cl, POC 114(H) 97 - 110 mmol/L [facility] Ionized Ca, POC 4.70 4.50 - 5.10 mg/dL [facility] Glucose, POC 123 70 - 199 mg/dL [facility] Lactate POC 1.9 0.7 - 2.0 mmol/L [facility] SO2 (felipe) arterial 96(H) 90 - 95 % [facility] Base excess, POC -6.6 mmol/L [facility] HCO3, Art POC 20 20 - 30 mmol/L [facility] Hct, POC 30.0(L) 41.4 - 51.6 % [facility] Total Hb, POC 10.0(L) 13.8 - 17.2 g/dL [facility] Blood 12/28/2024 4:24 PM CDT 12/28/2024 4:24 PM CDT Parth Dalton MD LAB POCT ORDERABLES - DEVICE Final Result [facility] [place] [address] * XR Abdomen 1 View AP (12/28/2024 [...] signed by: Bob Falcon M.D. Magy Kaur [employer] DESIGNER IMG XR PROCEDURES Raquel l Result * [...] pericardial drainage tubes project across the body. Dudley-Salma catheter projects over the heart. Thoracostomy tube. [...] pericardial drainage tubes project across the body. Dudley-Salma catheter projects over the heart. Thoracostomy tube. Sternal plate. Dictated by: Silvio Palafox M.D. The radiology attending physician has personally reviewed this study, and had reviewed and/or edited this written report and agrees with it. Electronically signed by: James Graham M.D. us Magy Elise Vincent [employer] BOARD DESIGNER IMG XR PROCEDURES Raquel l Result * XR Chest 1 View (12/28/2024 3:50 PM CDT) Anatomical Region Laterality Modality Body, Chest N/A Digital Radiogra phy 12/28/2024 4:20 PM CDT Impressions 12/28/2024 4:20 PM CDT Comparison 12/27/2024 2:58 PM. Tracheostomy tube remains in place. New sternal plates seen. Left atrial appendage clip in place. Dudley-Salma catheter placed with tip projecting over the [...] seen. Left atrial appendage clip in place. Dudley-Salma catheter placed with tip projecting over the [...] Art POC 46(H) 35 - 45 mmHg [facility] pO2, Art POC 63(L) 83 - 108 mmHg [facility] Na, POC 143 135 - 145 mmol/L [facility] K POC 4.0 3.3 - 4.9 mmol/L [facility] Comment: Interpretive Data Not all point of care methods assess for hemolysis. Confirm with instrument and retest K+ if not consistent with clinical signs and symptoms. Current Interpretive Data was last revised on 2023. Cl, POC 115(H) 97 - 110 mmol/L [facility] Ionized Ca, POC 4.56 4.50 - 5.10 mg/dL [facility] Glucose, POC 116 70 - 199 mg/dL [facility] Lactate POC 1.9 0.7 - 2.0 mmol/L [facility] SO2 (felipe) arterial 91 90 - 95 % [facility] Base excess, POC -6.3 mmol/L [facility] HCO3, Art POC 21 20 - 30 mmol/L [facility] Hct, POC 30.0(L) 41.4 - 51.6 % [facility] Total Hb, POC 9.9(L) 13.8 - 17.2 g/dL [facility] Blood 12/28/2024 3:42 PM CDT 12/28/2024 3:42 PM CDT Parth Dalton MD LAB POCT ORDERABLES - DEVICE Final Result Performing Organization Address [facility] Co de Phone Number [facility] [place] [address] * Oxyhemoglobin, pulmonary artery (12/28/2024 2:59 PM CDT) Oxyhemoglobin, PA 48.6 % Comment: Interpretive Data No reference range established. Current interpretive data was last revised 2019. Blood 12/28/2024 2:59 PM CDT 12/28/2024 3:04 PM CDT Magy Kaur NP LAB BLOOD ORDERABLES F inal Result Performing Organization Address [facility] Co de Phone Number [facility] [place] [address] * Calcium, ionized, whole blood (12/28/2024 2:59 PM CDT) Ca, ionized, bld 4.65 4.50 - 5.10 mg/dL Blood 12/28/2024 2:59 PM CDT 12/28/2024 3:04 PM CDT Parth Dalton MD LAB BLOOD ORDERABLES Final Re sult Performing Organization Address [facility] [place] [address] * Critical Care (12/28/2024 2:52 PM CDT) [...] plan with the ICU team and other medical/informatics consultant staff, making frequent assessments and decisions [...] ORDERABLES Final Re sult Performing Organization Address [facility] de Phone Number [facility] [place] [address] * aPTT (12/28/2024 2:49 PM CDT) aPTT [...] ORDERABLES Final Re sult Performing Organization Address [facility] [place] [address] * Protime-INR (12/28/2024 2:49 PM CDT) PT 13.1 10.2 - 13.5 sec INR 1.16 0.90 - 1.20 [facility] Comment: Interpretive data Oral anticoagulant therapeutic ranges: Venous thromboembolism prophylaxis or treatment: 2.0-3.0 CARDIOLOGY Standard range: 2.0-3.0 High-intensity range: 2.5-3.5 Refer to indication-specific guidelines for appropriate target ranges for prosthetic heart valve replacement. Current interpretive data was last revised on 2019. Blood 12/28/2024 2:49 PM CDT 12/28/2024 3:07 PM CDT Result Shanice Dalton MD LAB BLOOD ORDERABLES Final Re sult [facility] Department [place] [address] * (ABNORMAL) CBC without differential (12/28/2024 2:49 PM CDT) WBC 4.40 3.80 - 9.90 K/cumm Hgb 9.4(L) 13.0 - 17.5 g/dL [facility] Comment:Hemoglobin delta due to surgical procedure. Hct 27.2(L) 38.9 - 50.3 % [facility] Plt 93(L) 150 - 400 K/cumm [facility] MPV 10.1 9.1 - 12.3 fL [facility] RBC 2.64(L) 4.30 - 5.80 M/cumm [facility] MCV 103.0(H) 81.3 - 96.4 fL [facility] MCH 35.6(H) 27.1 - 33.3 pg [facility] MCHC 34.6 32.3 - 35.7 g/dL [facility] RDW CV 14.3 11.1 - 14.9 % [facility] RDW SD 53.7(H) 35.7 - 48.1 fL [facility] NRBC abs 0.00 0.00 - 0.01 K/cumm [facility] Blood 12/28/2024 2:49 PM CDT 12/28/2024 3:07 PM CDT Parth Dalton MD LAB BLOOD ORDERABLES Final Re sult [facility] Department [place] [address] * (ABNORMAL) Magnesium (12/28/2024 2:49 PM CDT) Magnesium 2.9(H) 1.4 - 2.5 mg/dL Blood 12/28/2024 2:49 PM CDT 12/28/2024 3:07 PM CDT Parth Dalton MD LAB BLOOD ORDERABLES Final Re sult Performing Organization Address City/[facility]/ZIP Co de Phone Number [facility] Department [place] [address] * (ABNORMAL) Basic metabolic panel (12/28/2024 2:49 PM CDT) Sodium 145 135 - 145 mmol/L Potassium, pl 4.1 3.3 - 4.9 mmol/L [facility] Comment:Hemolyzed; Potassium value may be falsely elevated by as much as 0.3-0.5 mmol/L. Suggest redraw and reanalysis. Chloride 112(H) 97 - 110 mmol/L [facility] CO2 21(L) 22 - 32 mmol/L [facility] Anion gap 12 2 - 15 mmol/L [facility] BUN 18 6 - 25 mg/dL [facility] Creatinine 1.07 0.80 - 1.30 mg/dL [facility] Glucose 92 70 - 199 mg/dL [facility] Comment: Interpretive Data Fasting glucose >/= 126 [...] 2022. Calcium 8.5 8.5 - 10.3 mg/dL [facility] Blood 12/28/2024 2:49 PM CDT 12/28/2024 3:07 PM CDT Parth Dalton MD LAB BLOOD ORDERABLES Final Re sult Performing Organization Address City/[facility]/ZIP Co de Phone Number [facility] [place] [address] * (ABNORMAL) POC Blood Gas and Chemistries, Arterial - (12/28/2024 2:38 PM CDT) pH, Art POC 7.31(L) 7.35 - 7.45 pCO2, Art POC 45 35 - 45 mmHg [facility] pO2, Art POC 94 83 - 108 mmHg [facility] Na, POC 142 135 - 145 mmol/L [facility] K POC 3.8 3.3 - 4.9 mmol/L [facility] Comment: Interpretive Data Not all point of care methods assess for hemolysis. Confirm with instrument and retest K+ if not consistent with clinical signs and symptoms. Current Interpretive Data was last revised on 2023. Cl, POC 114(H) 97 - 110 mmol/L [facility] Ionized Ca, POC 4.81 4.50 - 5.10 mg/dL [facility] Glucose, POC 92 70 - 199 mg/dL [facility] Lactate POC 0.8 0.7 - 2.0 mmol/L [facility] SO2 (felipe) arterial 98(H) 90 - 95 % [facility] Base excess, POC -3.5 mmol/L [facility] HCO3, Art POC 23 20 - 30 mmol/L [facility] Hct, POC 29.0(L) 41.4 - 51.6 % [facility] Total Hb, POC 9.7(L) 13.8 - 17.2 g/dL [facility] Blood 12/28/2024 2:38 PM CDT 12/28/2024 2:38 PM CDT us Parth Dalton MD LAB POCT ORDERABLES - DEVICE Final Result [facility] [place] [address] * POCT heparin/ACT CPB (12/28/2024 12:41 PM CDT) Heparin POC 0.0 units/mL ACT, CPB 116 112 - 174 sec [facility] Blood 12/28/2024 12:4 1 PM CDT 12/28/2024 12:41 PM CDT Parth Dalton MD LAB POCT ORDERABLES - DEVICE Final Result Performing Organization Address [facility] Co de Phone Number [facility] [place] [address] * (ABNORMAL) POCT prothrombin time (12/28/2024 12:37 PM CDT) PT, POC 21.1(H) 11.7 - 16.6 sec INR, POC 1.6(H) 0.9 - 1.2 [facility] Blood 12/28/2024 12:3 7 PM CDT 12/28/2024 12:37 PM CDT Parth Dalton MD LAB POCT ORDERABLES - DEVICE Final Result Performing Organization Address [facility] Co de Phone Number [facility] [place] [address] * POCT Partial thromboplastin time (PTT) (12/28/2024 12:37 PM CDT) APTT, POC 33.4 32.5 - 46.1 sec Blood 12/28/2024 12:3 7 PM CDT 12/28/2024 12:37 PM CDT Parth Dalton MD LAB POCT ORDERABLES - DEVICE Final Result Performing Organization Address City/[facility] [place] [address] * (ABNORMAL) POCT hemoglobin, hematocrit and platelet count (12/28/2024 12:35 PM CDT) Hgb, POC 9.0(L) 13.0 - 17.5 g/dL Hematocrit POC 28.0(L) 38.9 - 50.3 % [facility] Platelet POC 76(L) 150 - 400 K/cumm [facility] Blood 12/28/2024 12:3 5 PM CDT 12/28/2024 12:35 PM CDT us Parth Dalton MD LAB POCT ORDERABLES - DEVICE Final Result [facility] [place] [address] * (ABNORMAL) POC Blood Gas and Chemistries, Arterial - (12/28/2024 12:34 PM CDT) pH, Art POC 7.35 7.35 - 7.45 pCO2, Art POC 39 35 - 45 mmHg [facility] pO2, Art POC 137(H) 83 - 108 mmHg [facility] Na, POC 143 135 - 145 mmol/L [facility] K POC 4.2 3.3 - 4.9 mmol/L [facility] Comment: Interpretive Data Not all point of care methods assess for hemolysis. Confirm with instrument and retest K+ if not consistent with clinical signs and symptoms. Current Interpretive Data was last revised on 2023. Cl, POC 112(H) 97 - 110 mmol/L [facility] Ionized Ca, POC 5.65(H) 4.50 - 5.10 mg/dL [facility] Glucose, POC 113 70 - 199 mg/dL [facility] Lactate POC 1.3 0.7 - 2.0 mmol/L [facility] SO2 (felipe) arterial 100(H) 90 - 95 % [facility] Base excess, POC -3.8 mmol/L [facility] HCO3, Art POC 22 20 - 30 mmol/L [facility] Hct, POC 29.0(L) 41.4 - 51.6 % [facility] Total Hb, POC 9.7(L) 13.8 - 17.2 g/dL [facility] Blood 12/28/2024 12:3 4 PM CDT 12/28/2024 12:34 PM CDT Parth Dalton MD LAB POCT ORDERABLES - DEVICE Final Result Performing Organization Address City/[facility]/ZIP Co de Phone Number [facility] Department [place] [address] * (ABNORMAL) POC Blood Gas and Chemistries, Arterial - (12/28/2024 12:16 PM CDT) pH, Art POC 7.39 7.35 - 7.45 pCO2, Art POC 38 35 - 45 mmHg [facility] pO2, Art POC 318(H) 83 - 108 mmHg [facility] Na, POC 141 135 - 145 mmol/L [facility] K POC 4.9 3.3 - 4.9 mmol/L [facility] Comment: Interpretive Data Not all point of care methods assess for hemolysis. Confirm with instrument and retest K+ if not consistent with clinical signs and symptoms. Current Interpretive Data was last revised on 2023. Cl, POC 113(H) 97 - 110 mmol/L [facility] Ionized Ca, POC 4.33(L) 4.50 - 5.10 mg/dL [facility] Glucose, POC 116 70 - 199 mg/dL [facility] Lactate POC 1.3 0.7 - 2.0 mmol/L [facility] SO2 (felipe) arterial 100(H) 90 - 95 % [facility] Base excess, POC -1.7 mmol/L [facility] HCO3, Art POC 23 20 - 30 mmol/L [facility] Hct, POC 28.0(L) 41.4 - 51.6 % [facility] Total Hb, POC 9.4(L) 13.8 - 17.2 g/dL [facility] Blood 12/28/2024 12:1 6 PM CDT 12/28/2024 12:16 PM CDT Parth Dalton MD LAB POCT ORDERABLES - DEVICE Final Result [facility] [place] [address] * (ABNORMAL) POCT heparin/ACT CPB (12/28/2024 11:52 AM CDT) Pathologist [facility] [place] Heparin POC <2.8 units/mL ACT, CPB 579(H) 112 - 174 sec [facility] Blood 12/28/2024 11:5 2 AM CDT 12/28/2024 11:52 AM CDT us Parth Dalton MD LAB POCT ORDERABLES - DEVICE Final Result [facility] [place] [address] * (ABNORMAL) POC Blood Gas and Chemistries, Arterial - (12/28/2024 11:44 AM CDT) [facility] pH, Art POC 7.41 7.35 - 7.45 pCO2, Art POC 37 35 - 45 mmHg [facility] pO2, Art POC 296(H) 83 - 108 mmHg [facility] Na, POC 139 135 - 145 mmol/L [facility] K POC 4.9 3.3 - 4.9 mmol/L [facility] Comment: Interpretive Data Not all point of care methods assess for hemolysis. Confirm with instrument and retest K+ if not consistent with clinical signs and symptoms. Current Interpretive Data was last revised on 2023. Cl, POC 113(H) 97 - 110 mmol/L [facility] Ionized Ca, POC 4.34(L) 4.50 - 5.10 mg/dL [facility] Glucose, POC 115 70 - 199 mg/dL [facility] Lactate POC 1.0 0.7 - 2.0 mmol/L [facility] SO2 (felipe) arterial 100(H) 90 - 95 % [facility] Base excess, POC -0.9 mmol/L [facility] HCO3, Art POC 24 20 - 30 mmol/L [facility] Hct, POC 30.0(L) 41.4 - 51.6 % [facility] Total Hb, POC 10.0(L) 13.8 - 17.2 g/dL [facility] Blood 12/28/2024 11:4 4 AM CDT 12/28/2024 11:44 AM CDT Parth Dalton MD LAB POCT ORDERABLES - DEVICE Final Result Performing Organization Address City/[facility]/ZIP Co de Phone Number [facility] [place] [address] * (ABNORMAL) POCT heparin/ACT CPB (12/28/2024 11:25 AM CDT) Pathologist [facility] [place] Heparin POC <2.8 units/mL ACT, CPB 599(H) 112 - 174 sec [facility] Blood 12/28/2024 11:2 5 AM CDT 12/28/2024 11:25 AM CDT Parth Dalton MD LAB POCT ORDERABLES - DEVICE Final Result Performing Organization Address [facility] [place] [address] * (ABNORMAL) POC Blood Gas and Chemistries, Arterial - (12/28/2024 11:18 AM CDT) pH, Art POC 7.41 7.35 - 7.45 pCO2, Art POC 38 35 - 45 mmHg [facility] pO2, Art POC 285(H) 83 - 108 mmHg [facility] Na, POC 142 135 - 145 mmol/L [facility] K POC 5.0(H) 3.3 - 4.9 mmol/L [facility] Comment: Interpretive Data Not all point of care methods assess for hemolysis. Confirm with instrument and retest K+ if not consistent with clinical signs and symptoms. Current Interpretive Data was last revised on 2023. Cl, POC 112(H) 97 - 110 mmol/L [facility] Ionized Ca, POC 4.31(L) 4.50 - 5.10 mg/dL [facility] Glucose, POC 117 70 - 199 mg/dL [facility] Lactate POC 1.0 0.7 - 2.0 mmol/L [facility] SO2 (felipe) arterial 100(H) 90 - 95 % [facility] Base excess, POC -0.4 mmol/L [facility] HCO3, Art POC 24 20 - 30 mmol/L [facility] Hct, POC 30.0(L) 41.4 - 51.6 % [facility] Total Hb, POC 9.9(L) 13.8 - 17.2 g/dL [facility] Blood 12/28/2024 11:1 8 AM CDT 12/28/2024 11:18 AM CDT Parth Dalton MD LAB POCT ORDERABLES - DEVICE Final Result Performing Organization Address [facility] Co de Phone Number [facility] [place] [address] * (ABNORMAL) POCT heparin/ACT CPB (12/28/2024 10:54 AM CDT) Pathologist [facility] [place] Heparin POC <2.8 units/mL ACT, CPB 638(H) 112 - 174 sec [facility] Blood 12/28/2024 10:5 4 AM CDT 12/28/2024 10:54 AM CDT Parth Dalton MD LAB POCT ORDERABLES - DEVICE Final Result Performing Organization Address City/[facility] Co de Phone Number [facility] [place] [address] * (ABNORMAL) POC Blood Gas and Chemistries, Arterial - (12/28/2024 10:47 AM CDT) pH, Art POC 7.37 7.35 - 7.45 pCO2, Art POC 41 35 - 45 mmHg [facility] pO2, Art POC 397(H) 83 - 108 mmHg [facility] Na, POC 142 135 - 145 mmol/L [facility] K POC 4.9 3.3 - 4.9 mmol/L [facility] Comment: Interpretive Data Not all point of care methods assess for hemolysis. Confirm with instrument and retest K+ if not consistent with clinical signs and symptoms. Current Interpretive Data was last revised on 2023. Cl, POC 111(H) 97 - 110 mmol/L [facility] Ionized Ca, POC 4.47(L) 4.50 - 5.10 mg/dL [facility] Glucose, POC 108 70 - 199 mg/dL [facility] Lactate POC 1.0 0.7 - 2.0 mmol/L [facility] SO2 (felipe) arterial 100(H) 90 - 95 % [facility] Base excess, POC -1.5 mmol/L [facility] HCO3, Art POC 24 20 - 30 mmol/L [facility] Hct, POC 32.0(L) 41.4 - 51.6 % [facility] Total Hb, POC 10.5(L) 13.8 - 17.2 g/dL [facility] Blood 12/28/2024 10:4 7 AM CDT 12/28/2024 10:47 AM CDT Parth Dalton MD LAB POCT ORDERABLES - DEVICE Final Result Performing Organization Address City/[facility]/ZIP Co de Phone Number [facility] [place] [address] * (ABNORMAL) POCT heparin/ACT CPB (12/28/2024 10:27 AM CDT) Heparin POC >4.7 units/mL ACT, CPB 633(H) 112 - 174 sec [facility] Blood 12/28/2024 10:2 7 AM CDT 12/28/2024 10:27 AM CDT Parth Dalton MD LAB POCT ORDERABLES - DEVICE Final Result [facility] Department [place] [address] * (ABNORMAL) POC Blood Gas and Chemistries, Arterial - (12/28/2024 10:20 AM CDT) pH, Art POC 7.34(L) 7.35 - 7.45 pCO2, Art POC 45 35 - 45 mmHg [facility] pO2, Art POC 333(H) 83 - 108 mmHg [facility] Na, POC 140 135 - 145 mmol/L [facility] K POC 4.1 3.3 - 4.9 mmol/L [facility] Comment: Interpretive Data Not all point of care methods assess for hemolysis. Confirm with instrument and retest K+ if not consistent with clinical signs and symptoms. Current Interpretive Data was last revised on 2023. Ionized Ca, POC 4.34(L) 4.50 - 5.10 mg/dL [facility] Glucose, POC 103 70 - 199 mg/dL [facility] Lactate POC 0.8 0.7 - 2.0 mmol/L [facility] SO2 (felipe) arterial 100(H) 90 - 95 % [facility] Base excess, POC -1.6 mmol/L [facility] HCO3, Art POC 24 20 - 30 mmol/L [facility] Hct, POC 33.0(L) 41.4 - 51.6 % [facility] Total Hb, POC 10.9(L) 13.8 - 17.2 g/dL [facility] Blood 12/28/2024 10:2 0 AM CDT 12/28/2024 10:20 AM CDT us Parth Dalton MD LAB POCT ORDERABLES - DEVICE Final Result [facility] Department [place] [address] * (ABNORMAL) POCT heparin/ACT CPB (12/28/2024 10:02 AM CDT) Heparin POC >4.7 units/mL ACT, CPB 524(H) 112 - 174 sec [facility] Blood 12/28/2024 10:0 2 AM CDT 12/28/2024 10:02 AM CDT Parth Dalton MD LAB POCT ORDERABLES - DEVICE Final Result [facility] Department [place] [address] * (ABNORMAL) POC Blood Gas and Chemistries, Arterial - (12/28/2024 9:56 AM CDT) pH, Art POC 7.32(L) 7.35 - 7.45 pCO2, Art POC 50(H) 35 - 45 mmHg [facility] pO2, Art POC 178(H) 83 - 108 mmHg [facility] Na, POC 141 135 - 145 mmol/L [facility] K POC 4.2 3.3 - 4.9 mmol/L [facility] Comment: Interpretive Data Not all point of care methods assess for hemolysis. Confirm with instrument and retest K+ if not consistent with clinical signs and symptoms. Current Interpretive Data was last revised on 2023. Cl, POC 111(H) 97 - 110 mmol/L [facility] Ionized Ca, POC 4.93 4.50 - 5.10 mg/dL [facility] Glucose, POC 110 70 - 199 mg/dL [facility] Lactate POC 0.9 0.7 - 2.0 mmol/L [facility] SO2 (felipe) arterial 100(H) 90 - 95 % [facility] Base excess, POC -0.9 mmol/L [facility] HCO3, Art POC 26 20 - 30 mmol/L [facility] Hct, POC 37.0(L) 41.4 - 51.6 % [facility] Total Hb, POC 12.4(L) 13.8 - 17.2 g/dL [facility] Blood 12/28/2024 9:56 AM CDT 12/28/2024 9:56 AM CDT Parth Dalton MD LAB POCT ORDERABLES - DEVICE Final Result Performing Organization Address [facility] Co de Phone Number [facility] [place] [address] * POCT heparin dose response, CPB (12/28/2024 8:22 AM CDT) Baseline ACT POC 136 112 - 174 sec Heparin dose response slope POC 94 60 - 195 [facility] Projected Heparin Concentration POC <0.1 units/mL [facility] Blood 12/28/2024 8:22 AM CDT 12/28/2024 8:22 AM CDT Parth Dalton MD LAB POCT ORDERABLES - DEVICE Final Result Performing Organization Address [facility] Co de Phone Number [facility] [place] [address] * Central Venous Line (12/28/2024 8:17 AM [...] Art POC 41 35 - 45 mmHg [facility] pO2, Art POC 125(H) 83 - 108 mmHg [facility] Na, POC 142 135 - 145 mmol/L [facility] K POC 3.8 3.3 - 4.9 mmol/L [facility] Comment: Interpretive Data Not all point of care methods assess for hemolysis. Confirm with instrument and retest K+ if not consistent with clinical signs and symptoms. Current Interpretive Data was last revised on 2023. Cl, POC 109 97 - 110 mmol/L [facility] Ionized Ca, POC 4.98 4.50 - 5.10 mg/dL [facility] Glucose, POC 102 70 - 199 mg/dL [facility] Lactate POC 1.0 0.7 - 2.0 mmol/L [facility] SO2 (felipe) arterial 100(H) 90 - 95 % [facility] Base excess, POC -0.2 mmol/L [facility] HCO3, Art POC 25 20 - 30 mmol/L [facility] Hct, POC 36.0(L) 41.4 - 51.6 % [facility] Total Hb, POC 12.0(L) 13.8 - 17.2 g/dL [facility] Blood 12/28/2024 8:15 AM CDT 12/28/2024 8:15 AM CDT us Parth Dalton MD LAB POCT ORDERABLES - DEVICE Final Result [facility] Department [place] [address] * YONY Add-On For OR (12/28/2024 7:51 AM CDT) BSA 2.09 m2 [facility] PROSOLV_CARDIORE PORT_CONS SCIMAGE Narrative [facility] PROSOLV_CARDIOREPORT_CONS SCIMAGE - 12/28/2024 7:51 AM CDT Procedure Auto Finalized by Rule: RAFY CV YONY DURING CASE OR Please see the Anesthesiologist's Procedure Note for the results. us Simon Roberts MD CV ECHO PROCEDURES Final Result [facility] PROSOLV_CARDIOREPORT_CONS SCIMAGE * MI AN PROCEDURE PLACEHOLDER (12/28/2024 7:30 AM CDT) [...] code: YONY placement and diagnostic exam, non-congenital (24917) Echocardiographic and doppler measurements: Ventricles: Left ventricle: [...] inferior: hypokinetic 16- Apical septal: hypokinetic 17- [place]: hypokinetic Valves: Aortic Valve: Annulus: normal Leaflet [...] CDT 12/27/2024 9:37 PM CDT Francy Bernabe PRINTED CIRCUIT BOARD DESIGNER LAB BLOOD ORDERABLES Final Result Performing Organization Address [facility] Co de Phone Number CYNTHIA MURPHY [place] [facility] [place] [address] * (ABNORMAL) eGFR (12/27/2024 9:28 PM CDT) [...] CDT 12/27/2024 9:46 PM CDT Francy Bernabe PRINTED [employer]ARD DESIGNER LAB BLOOD ORDERABLES Final Result Performing Organization Address City/[facility]/ZIP Co de Phone Number CYNTHIA MURPHY Fernanda [facility] [place] [address] * (ABNORMAL) aPTT (12/27/2024 9:28 PM CDT) aPTT 100(H) 26 - 38 sec Comment: Interpretive Data Heparin therapeutic range: 66.0 - 100.0 seconds. Range based on correlation with therapeutic heparin activity range of 0.3 - 0.7 Units/mL. Current interpretive data was last revised on 2023. Blood 12/27/2024 9:28 PM CDT 12/27/2024 9:41 PM CDT Narrative CYNTHIA [facility] - 12/27/2024 10:03 PM CDT STAT PTT [...] peripherally (not from CVC). us Tesha Barrera PR[employer]ED [employer] BOARD DESIGNER LAB BLOOD ORDERABLES Final Resul t Performing Organization Address [facility] Co de Phone Number [facility] [place] [address] * Antithrombin Activity (12/27/2024 9:28 PM CDT) [facility] Antithrombin III 84 80 - 125 % Comment: Interpretive Data High concentrations of anti-Xa direct oral anticoagulants can cause Antithrombin activities to be falsely elevated. Current interpretive data was last reviewed 2023 Blood 12/27/2024 9:28 PM CDT 12/27/2024 9:46 PM CDT Justin Lambert PRINTED [employer]ARD DESIGNER LAB BLOOD ORDERABLES F inal Result Performing Organization Address City/[facility] Co de Phone Number [facility] Department of [place], [place] [id number] * (ABNORMAL) CBC without differential (12/27/2024 9:28 PM CDT) Pathologist [facility] WBC 6.15 3.80 - 9.90 K/cumm Hgb 12.6(L) 13.0 - 17.5 g/dL [facility] Hct 37.9(L) 38.9 - 50.3 % [facility] Plt 151 150 - 400 K/cumm [facility] MPV 10.4 9.1 - 12.3 fL [facility] RBC 3.69(L) 4.30 - 5.80 M/cumm [facility] MCV 102.7(H) 81.3 - 96.4 fL [facility] MCH 34.1(H) 27.1 - 33.3 pg [facility] MCHC 33.2 32.3 - 35.7 g/dL [facility] RDW CV 14.0 11.1 - 14.9 % [facility] RDW SD 53.0(H) 35.7 - 48.1 fL [facility] NRBC abs 0.00 0.00 - 0.01 K/cumm [facility] Blood 12/27/2024 9:28 PM CDT 12/27/2024 9:46 PM CDT Francy Bernabe PR[employer]ED [employer]ARD DESIGNER LAB BLOOD ORDERABLES Final Result Performing Organization Address [facility] Co de Phone Number [facility] [place] [address] * Magnesium (12/27/2024 9:28 PM CDT) [facility] Magnesium 1.9 1.4 - 2.5 mg/dL Blood 12/27/2024 9:28 PM CDT 12/27/2024 9:46 PM CDT Francy Bernabe [employer]ARD DESIGNER LAB BLOOD ORDERABLES Final Result Performing Organization Address [facility] Co de Phone Number [facility] [place] [address] * Basic metabolic panel (12/27/2024 9:28 PM CDT) Sodium 142 135 - 145 mmol/L Potassium, pl 4.3 3.3 - 4.9 mmol/L [facility] Chloride 106 97 - 110 mmol/L [facility] CO2 25 22 - 32 mmol/L [facility] Anion gap 11 2 - 15 mmol/L [facility] BUN 24 6 - 25 mg/dL [facility] Creatinine 1.28 0.80 - 1.30 mg/dL [facility] Glucose 136 70 - 199 mg/dL [facility] Comment: Interpretive Data Fasting glucose >/= 126 [...] 2022. Calcium 9.3 8.5 - 10.3 mg/dL [facility] Blood 12/27/2024 9:28 PM CDT 12/27/2024 9:46 PM CDT us Francy Bernabe NP LAB BLOOD ORDERABLES Final Result [facility] Department [place] [address] * Prepare RBC: 4 Units (12/27/2024 3:41 PM CDT) Product code [id number] [facility] Unit Number [id number] 7-L [facility] Product Blood Type APOS [facility] Dispense Status RETURNED [facility] Product code [id number] [facility] Unit Number [id number] 1-M [facility] Product Blood Type APOS [facility] Dispense Status RETURNED [facility] Product code [id number] [facility] Unit Number [id number] 4-C [facility] Product Blood Type APOS CYNTHIA [facility] Dispense Status RETURNED CYNTHIA MURPHY Product code [id number] Unit Number [id number] 9-A CYNTHIA [facility] Product Blood Type APOS CYNTHIA [facility] Dispense Status RETURNED [facility] Blood 12/27/2024 3:41 PM CDT 12/27/2024 3:40 PM CDT Narrative CYNTHIA MURPHY - 12/28/2024 3:05 PM CDT Specify Procedure:->CABG Are special requirements needed? (All products are leukoreduced and CMV- safe)- >No Date required:-[id number] LRRBC # of [id number] Reasons:-Hold for procedure (specify procedure)} us Lacey Ly NP BLOOD BANK PRODUCT ORDERAB LES Final Result [facility] Department [place] [address] * XR Chest Pa Lateral 2 Views [...] 2 view chest radiograph Procedure Note Jan Myers MD - 12/27/2024 EXAMINATION: 2 view chest radiograph IMPRESSION: Comparison 05/01/2024. Tracheostomy tube remains in place. Cardiomediastinal silhouette stable with tortuous thoracic aorta. Minimal right basilar atelectasis or scarring again noted. Lungs otherwise clear without focal consolidation or pulmonary edema. No pneumothorax or pleural effusion seen. Old healed left lateral rib fractures again seen. Electronically signed by: aJn Myers M.D. Justin Lambert PRINTED CIRCUIT BOARD DESIGNER IMG XR PROCEDURES Raquel l Result * US Carotids Duplex Bilateral (12/27/2024 10:03 AM CDT) Anatomical Region Laterality Modality Vascular Bilateral Ultrasound 12/27/2024 9:03 AM CDT Narrative 12/27/2024 1:25 PM CDT [facility] - Department of Vascular Surgery, Vascular Laboratory [address] [place] [address] Carotid Duplex Ultrasound Report Patient Name: MEGAN TITUS : 1950 (74y 10m) Study Date: 12/27/2024 9:03:35 AM Gender: M Tech: Location: [id number] Ref Provider: JUSTIN LAMBERT Quality: Adequate Order [...] LT VERT PSV 29 cm/sec FINDINGS: Performing 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: Martine Canas RVT. Rt Common Carotid Artery: [...] Procedure Note Seth Sexton MD - 12/27/2024 [facility] - Department of Vascular Surgery,Vascular Laboratory [address] [place] [address] Carotid Duplex Ultrasound Report Patient Name: MEGAN TITUS : 1950 (74y 10m) Study Date: 12/27/2024 9:03:35 AM Gender: M Tech: Location: [id number] Ref Provider: JUSTIN LAMBERT Quality: Adequate Order [...] LT VERT PSV 29 cm/sec FINDINGS: Performing 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: Martine Canas RVT. Rt Common Carotid Artery: [...] AM CDT Narrative 12/27/2024 1:35 PM CDT [facility] - Department of Vascular Surgery, Vascular Laboratory [address] [place] [address] Lower Extremity Vein Mapping Report Patient Name: MEGAN TITUS : 1950 (74y 10m) Study Date: 12/27/2024 9:15:50 AM Gender: M 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: ALEIDA Location: [id number] Ref Provider: JUSTIN LAMBERT Quality: Adequate Order [...] Small Saphenous Distal 0.20 cm FINDINGS: Performing 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: Martine Canas RVT. Bilateral: The common femoral, [...] Procedure Note Seth Sexton MD - 12/27/2024 [facility] - Department of Vascular Surgery,Vascular Laboratory [address] [place] [address] Lower Extremity Vein Mapping Report Patient Name: MEGAN TITUS : 1950 (74y 10m) Study Date: 12/27/2024 9:15:50 AM Gender: M 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: ALEIDA Location: [id number] Ref Provider: JUSTIN LAMBERT Quality: Adequate Order [...] Small Saphenous Distal 0.20 cm FINDINGS: Performing 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: Martine Canas RVT. Bilateral: The common femoral, [...] above. Electronically Signed By: Seth Sexton MD [facility] 12/27/2024 1:35:27 PM CDT us Justin Lambert PRINTED CIRCUIT BOARD DESIGNER IMG US PROCEDURES Raquel l Result * TRANSTHORACIC ECHO (TTE) COMPLETE W DOPPLER/CF W CONTRAST (12/27/2024 8:47 AM CDT) EF Mod BP 38 % CONS SCIMAGE Anatomical Region Laterality Modality Ultrasound 12/27/2024 7:13 AM CDT Narrative 12/27/2024 10:50 AM CDT [facility] [place] [address] Transthoracic Echocardiographic Report Patient Name: MEGAN TITUS : 1950 (74y 10m) Sex: M Study Date: 12/27/2024 07:13:57 AM Ht(Inch): 70 Wt(Lb): 195.11 BSA: 2.09 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: Santiago Montiel RDCS Location: [id number] Order Provider: JUSTIN LAMBERT Heart Rate: 95 [...] LA Length 4C 7.12 cm AI Decel Irion 2.38 m/s2 LA Length 2C 7.04 cm [...] Procedure Note Gerardo Dickson MD - 12/27/2024 [facility] [place] [address] Transthoracic Echocardiographic Report Patient Name: MEGAN TITUS : 1950 (74y 10m) Sex: M Study Date: 12/27/2024 07:13:57 AM Ht(Inch): 70 Wt(Lb): 195.11 BSA: 2.09 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: Santiago Montiel RDCS Location: [id number] Order Provider:JUSTIN LAMBERT Heart Rate: 95 BMI: [...] [ -25.0 - -18.0 ] AI Decel [id number] sec LA Length 4C 7.12 cm AI Decel Slope2.38 m/s2 LA Length 2C 7.04 cm AI PNC892.29 msec LA Volume BP 112.17 ml MV E Peak Vel0.9 m/s [ 0.6 - 1.3 ] LA Volume Index 53.65 ml/m2 [ 16.00 - 34.00 ] MV Decel Wkdp592.92 msec [ 104.00 - 258.00 ] RV [...] Asc Ao Diam 2D 3.53 cm MR QFR685.7 cm Asc Ao Index 1.69 cm/m2 MR [...] CDT 12/27/2024 6:29 AM CDT Narrative CYNTHIA [facility] - 12/27/2024 6:54 AM CDT STAT PTT [...] NP LAB BLOOD ORDERABLES Final Resul t [facility] Department [place] [address] * (ABNORMAL) aPTT (12/27/2024 12:24 AM CDT) [...] peripherally (not from CVC). us Tesha Barrera PRINTED CIRCUIT BOARD DESIGNER LAB BLOOD ORDERABLES Final Resul t Performing Organization Address City/[facility]/ZIP Co de Phone Number [facility] Department [place] [address] * Troponin I high-sensitivity (12/26/2024 6:11 PM CDT) Trop I hs 9 <=35 ng/L Comment: Interpretive Data For further hscTnI resources including the diagnostic algorithm and an aid in interpretation, copy and paste this link: [email or web address] Current Interpretive Data last revised 2019. Blood 12/26/2024 6:11 PM CDT 12/26/2024 7:21 PM CDT us Justin Lambert PRINTED CIRCUIT BOARD DESIGNER LAB BLOOD ORDERABLES F inal Result Performing Organization Address City/[facility]/ZIP Co de Phone Number CYNTHIA [facility] Department [place] [address] * (ABNORMAL) Pro B-type natriuretic peptide (12/26/2024 [...] LAB BLOOD ORDERABLES F inal Result CYNTHIA [facility] [place] [address] * (ABNORMAL) aPTT (12/26/2024 6:11 PM CDT) [...] ORDERABLES F inal Result Performing Organization Address [facility] Co de Phone Number CYNTHIA [facility] [place] [address] * Protime-INR (12/26/2024 6:11 PM CDT) PT 11.4 10.2 - 13.5 sec INR 1.01 0.90 - 1.20 [facility] Comment: Interpretive data Oral anticoagulant therapeutic ranges: Venous thromboembolism prophylaxis or treatment: 2.0-3.0 CARDIOLOGY Standard range: 2.0-3.0 High-intensity range: 2.5-3.5 Refer to indication-specific guidelines for appropriate target ranges for prosthetic heart valve replacement. Current interpretive data was last revised on 2019. Blood 12/26/2024 6:11 PM CDT 12/26/2024 7:25 PM CDT Justin Lambert LAB BLOOD ORDERABLES F inal Result Performing Organization Address City/[facility] Co de Phone Number [facility] [place] [address] * TSH (12/26/2024 6:11 PM CDT) Thyroid Stimulating Hormone 1.85 0.30 - 4.20 mcIUnit/mL Blood 12/26/2024 6:11 PM CDT 12/26/2024 7:20 PM CDT Justin Lambert PR[employer]ED [employer] BOARD DESIGNER LAB BLOOD ORDERABLES F inal Result Performing Organization Address [facility] de Phone Number [facility] [place] [address] * T4, free (12/26/2024 6:11 PM CDT) [facility] Free T4 1.22 0.90 - 1.70 ng/dL Blood 12/26/2024 6:11 PM CDT 12/26/2024 7:20 PM CDT Justin Lambert PRINTED CIRCUIT BOARD DESIGNER LAB BLOOD ORDERABLES F inal Result Performing Organization Address [facility] [place] [address] * TYPE AND SCREEN 14 DAY (12/26/2024 2:28 PM CDT) [facility] Becca, indirect Negative ABO Rh A Positive [facility] Blood 12/26/2024 2:28 PM CDT 12/26/2024 3:59 PM CDT Narrative [facility] - 12/26/2024 4:56 PM CDT Is this test being ordered in advance for a procedure?->Yes Expected date of procedure:->12/28/24 Has the patient been transfused in the past 3 months?->No Zohra Dumont PRINTED CIRCUIT BOARD DESIGNER LAB BLOOD BANK TEST O RDERABLES Final Result Performing Organization Address [facility] [place] [address] * (ABNORMAL) eGFR (12/26/2024 2:28 PM CDT) [facility] eGFR 52(L) >=60 mL/min/1. 73 m2 Comment: [...] Dumont NP LAB BLOOD ORDERABLES Final Result [facility] Department [place] [address] * (ABNORMAL) Differential, auto (12/26/2024 2:28 PM CDT) Neutrophil abs 5.59 1.50 - 6.50 K/cumm Imm gran abs 0.05 0.00 - 0.10 K/cumm [facility] Lymphocyte abs 0.67(L) 0.80 - 3.30 K/cumm [facility] Monocyte abs 0.51 0.20 - 0.80 K/cumm [facility] Eosinophil abs 0.03 0.00 - 0.50 K/cumm [facility] Basophil abs 0.03 0.00 - 0.10 K/cumm [facility] Neutrophil pct 81.4 % [facility] Comment: Interpretive Data Percent cell count reference ranges are not reported, since discordance with absolute values may lead to misinterpretation of CBC data. Current Interpretive Data was last revised on 2017. Imm gran pct 0.7 % [facility] Comment: Interpretive Data Percent cell count reference ranges are not reported, since discordance with absolute values may lead to misinterpretation of CBC data. Current Interpretive Data was last revised on 2017. Lymphocyte pct 9.7 % CYN[facility] Comment: Interpretive Data Percent cell count reference ranges are not reported, since discordance with absolute values may lead to misinterpretation of CBC data. Current Interpretive Data was last revised on 2017. Monocyte pct 7.4 % CYNTHIA [facility] Comment: Interpretive Data Percent cell count reference ranges are not reported, since discordance with absolute values may lead to misinterpretation of CBC data. Current Interpretive Data was last revised on 2017. Eosinophil pct 0.4 % [facility] Comment: Interpretive Data Percent cell count reference ranges are not reported, since discordance with absolute values may lead to misinterpretation of CBC data. Current Interpretive Data was last revised on 2017. Basophil pct 0.4 % [facility] Comment: Interpretive Data Percent cell count reference ranges are not reported, since discordance with absolute values may lead to misinterpretation of CBC data. Current Interpretive Data was last revised on 2017. Blood 12/26/2024 2:28 PM CDT 12/26/2024 3:55 PM CDT Zohra Dumont NP LAB BLOOD ORDERABLES Final Result [facility] [place] [address] * (ABNORMAL) Urinalysis reflex to microscopic and culture Urine, clean voided (12/26/2024 2:28 PM CDT) Color, ur Straw Yellow Clarity, ur Clear Clear [facility] Specific gravity, ur 1.013 1.003 - 1.[address] [facility] pH, urine 6.[address] [facility] [facility] Comment: Interpretive Data U rine pH is affected by diet, medications, systemic acid-base disturbances, and renal tubular function. pH may affect urinary stone formation. For example, urine pH below 6.0 may help reduce the tendency for calcium phosphate stones and pH greater than 6.0 may reduce the tendency for uric acid stone formation. Source: [facility] Current Interpretive Data was last revised on 2017 Protein, ur ql Negative Negative [facility] Glucose, ur ql Trace(A) Negative [facility] Ketones, ur Negative Negative [facility] Bilirubin, ur Negative Negative [facility] Blood, ur Negative Negative [facility] Urobilinogen, ur <2.0 <2.0 mg/dL [facility] Nitrite, ur Negative Negative [facility] Leukocyte esterase, ur Negative Negative [facility] UA reflex comment Reflex conditions for microscopic UA and culture not met. [facility] Urine, clean voided 12/26/2024 2:28 PM CDT 12/26/2024 3:50 PM CDT Zohra Dumont NP LAB MICROBIOLOGY - [facility] ORDERABLES Final Result [facility] [place] [address] * (ABNORMAL) CBC with auto differential (12/26/2024 2:28 PM CDT) WBC 6.88 3.80 - 9.90 K/cumm Hgb 13.2 13.0 - 17.5 g/dL [facility] Hct 39.6 38.9 - 50.3 % [facility] Plt 168 150 - 400 K/cumm [facility] MPV 10.7 9.1 - 12.3 fL [facility] RBC 3.86(L) 4.30 - 5.80 M/cumm [facility] MCV 102.6(H) 81.3 - 96.4 fL [facility] MCH 34.2(H) 27.1 - 33.3 pg [facility] MCHC 33.3 32.3 - 35.7 g/dL [facility] RDW CV 14.2 11.1 - 14.9 % [facility] RDW SD 53.5(H) 35.7 - 48.1 fL [facility] NRBC abs 0.00 0.00 - 0.01 K/cumm [facility] Blood 12/26/2024 2:28 PM CDT 12/26/2024 3:55 PM CDT us Zohra Dumont PR[employer]ED [employer] BOARD DESIGNER LAB BLOOD ORDERABLES Final Result Performing Organization Address [facility] de Phone Number [facility] [place] [address] * (ABNORMAL) Hemoglobin A1c (12/26/2024 2:28 PM CDT) Hgb A1C 5.9(H) 4.0 - 5.6 % Estimated Average Glucose 123 mg/dL [facility] Comment: The ADA recommends reporting an estimated [...] ORDERABLES Final Re sult Performing Organization Address [facility] [place] [address] * (ABNORMAL) Comprehensive metabolic panel (12/26/2024 2:28 PM CDT) Sodium 139 135 - 145 mmol/L Potassium, pl 5.0(H) 3.3 - 4.9 mmol/L [facility] Comment:Hemolyzed; Potassium value may be falsely elevated by as much as 0.3-0.5 mmol/L. Suggest redraw and reanalysis. Chloride 104 97 - 110 mmol/L [facility] CO2 25 22 - 32 mmol/L [facility] Anion gap 10 2 - 15 mmol/L [facility] BUN 29(H) 6 - 25 mg/dL [facility] Creatinine 1.42(H) 0.80 - 1.30 mg/dL [facility] Glucose 85 70 - 199 mg/dL [facility] Comment: Interpretive Data Fasting glucose >/= 126 [...] 2022. Calcium 9.6 8.5 - 10.3 mg/dL [facility] Bilirubin, total 0.8 0.1 - 1.2 mg/dL [facility] Protein, pl 6.9 6.5 - 8.5 g/dL [facility] Albumin 4.2 3.5 - 5.0 g/dL [facility] Alk phos 34(L) 40 - 130 Units/L [facility] ALT 41 7 - 55 Units/L [facility] AST 33 10 - 50 Units/L [facility] Comment:Hemolyzed; result ma y be falsely elevated Blood 12/26/2024 2:28 PM CDT 12/26/2024 3:55 PM CDT Zohra Dumont NP LAB BLOOD ORDERABLES Final Result [facility] [place] [address] * ECG 12 lead (12/26/2024 1:43 PM CDT) Ventricular Rate EKG/Min 89 BPM [facility] QRS-Interval (MSEC) 94 ms [facility] [facility] QT-Interval (MSEC) 338 ms [facility] QTc 411 ms [facility] R [place] -15 degrees [facility] T [place] -29 degrees [facility] Diagnosis Atrial fibrillation Cannot rule out Inferior infarct , age undetermined Possible Anterior infarct , age undetermined Abnormal ECG When compared with ECG of 15-NOV-2024 08:09, PREVIOUS ECG IS PRESENT Confirmed by Nel Ross MD ([id number]) on 12/27/2024 11:18:12 AM [facility] [employer] 12/26/2024 1:43 PM CDT 12/27/2024 11:18 AM CDT Zohra Dumont NP ECG ORDERABLES Final Result [facility] [employer] [facility] * CT Chest Abdomen Pelvis W Contrast [...] Yaya Cloud M.D. DA: LORIN Report ID: [id number] Reading Location: [place] [address] Procedure Note Yaya Cloud MD - 01/12/2025 [...] Yaya Cloud M.D. DA: LORIN Report ID: [id number] Reading Location: [place] [address] PROCEDURES Final R esult * (ABNORMAL) POCT creatinine for contrast evaluation (12/24/2024 11:21 AM CDT) Creatinine POC 1.40(H) 0.80 - 1.30 mg/dL Comment:Testing performed by : [facility], [address] [place] [address], [place]., [address] Blood 12/24/2024 11:2 1 AM CDT 12/24/2024 11:21 AM CDT Mykel Mccauley DO POINT OF CARE TEST ORDERABLE S Final Result [facility] [address] [facility] [place] [address] * Hepatitis B core antibody, total Blood (12/07/2024 12:05 PM CDT) Pathologist [facility] [place] Hep B core IgG/IgM Nonreactive Nonreactive Comment:Testing performed by : [facility], [address] [facility], [place]., [address] Blood 12/07/2024 12:0 5 PM CDT 12/08/2024 9:53 AM CDT Jeferson Elena MD LAB MICROBIOLOGY - GENERAL ORDERABLES Final Result Performing Organization Address [facility] Co de Phone Number [facility] CISNER[place] [address] [place] [address] * Hepatitis B surface antibody (immune status) Blood (12/07/2024 12:05 PM CDT) Pathologist [facility] [place] HBsAb (immune status) Nonreactive Comment: Interpretive Data [...] - GENERAL ORDERABLES Final Result [facility] CISNER[place] [address] [place] [address] * Hepatitis B Surface Antigen Blood (12/07/2024 12:05 PM CDT) Pathologist [facility] [place] HepBsAg Nonreactive Nonreactive Blood 12/07/2024 12:0 5 PM CDT 12/07/2024 6:05 PM CDT us Jeferson Elena MD LAB MICROBIOLOGY - GENERAL ORDERABLES Final Result [facility] [place] [address] Department [place] [address] * Lipid panel (12/07/2024 12:05 PM CDT) [...] BLOOD ORDERABLES Final Result Performing Organization Address [facility] [place] [address] [place] [address] * Hepatitis C antibody Blood (02/17/2023 3:47 PM CDT) Pathologist [facility] [place] Hep C Ab Nonreactive Nonreactive Comment: Interpretive [...] GENERAL ORDERABLES Final Result Performing Organization Address [facility] [place] [address] [address] [place] [address] * Stool DNA - Cologuard (10/20/2022 11:30 AM CDT) Pathologist [facility] [place] Stool DNA - Cologuard Negative Negative [employer] (CLIA #:[id number]) Comment: NEGATIVE TEST RESULT. A negative Cologuard [...] (Moshe Harvey al, N Engl J Med 2014;370(14):9883-7034) The normal value (reference range) for this assay is negative. COLOGUARD RE-SCREENING RECOMMENDATION: Periodic colorectal cancer screening is an important part of preventive healthcare for asymptomatic individuals at average risk for colorectal cancer. Following a negative Cologuard result, the [place] [employer] Society and U.S. Multi-Society Task Force screening guidelines recommend a Cologuard re-screening interval of 3 years. References: [place] [employer] Guideline for Colorectal Cancer Screening: https://www.cancer.org/cancer/pnvlu-fjferv-sqzvtj/pttjkfkac-nbsmatkje-uhmirfc/ac s-rec ommendations.html.; Brian DK, Tracie CR, Yan WoodK, Colorectal Cancer Screening: Recommendations for Physicians and Patients from the U.S. Multi-Society Task Force on Colorectal Cancer Screening , Am J Gastroenterology 2017; 112:9701-0756. TEST DESCRIPTION: Composite algorithmic analysis of stool [...] (Moshe Harvey al, N Engl J Med 2014;370(14):3104-3008.) Cologuard may produce a false negative or false positive result (no colorectal cancer or precancerous polyp present at colonoscopy follow up). A negative Cologuard test result does not guarantee the absence of CRC or advanced adenoma (pre-cancer). The current Cologuard screening interval is every 3 years. ([place] [employer] Society and U.S. Multi-Society Task Force). Cologuard performance data in a 10,000 patient pivotal study using colonoscopy as the reference method can be accessed at the following location: [email or web address].[email or web address]/results. Additional description of the Cologuard test process, warnings and precautions can be found at [email or web address]. Stool 10/20/2022 11:3 0 AM CDT 10/21/2022 9:26 PM CDT us Yaya Elizondo MD LAB BODY FLUIDS AND STOOLS OR DERABLES Final Result [facility] (CLIA #:[id number]) [address] [place] [address] from Last 3 Months or Most Recently Relevant to Health Maintenance Insurance MEDICARE [facility] MEDICARE SUPPLEMENT MEDICARE [facility] MEDICARE SUPPLEMENT MEDICARE [facility] OOS Advance Directives For more information, please contact: [phone] Documents on File Type Date Recorded Patient Compensation Consulting Manager Expl anation ADVANCE DIRECTIVE 04/14/2022 6:41 AM Outs [facility] DNR * Full Code (Latest Code Status [...] Agents on File Name Relationship Healthcare Agent [facility] Communication [facility] Care Agent Care Teams Wall Taper Relationship Specialty Start Date End Date Jeferson Elena MD [address] [facility] [address] [place] [address] PCP - General Family Medicine 02/17/23 Mykel Mccauley DO [address] [place] [address] MEDICAL ONCOLOGY, [facility] [address] [place] [address] Medical Oncologist/Hematologis t Hematology and Oncology 08/28/21 Micheal Cabral MD [address] [facility] [address] [address] Consulting Physician General Surgery 08/11/22 Artie Henderson MD [address] [facility] [address] [place] [address] Referring Physician Cardiology 02/17/23 Ana M Renteria MD [address] [facility] [address] [place] [address] Referring Physician Cardiology 11/21/23 [place] [address] [address] [facility] [address], [place] [address] Consulting Physician Endocrinology Diabetes & Metabolism 11/21/23 [place] [address] [facility] [address], [place] [address] Nurse Practitioner Endocrinology Diabetes & Metabolism 11/21/23 Parth Dalton MD [address] [facility] [id number] [place] [address] Surgeon Cardiothoracic Surgery 12/07/24
--- OUTSIDE RECORDS SUMMARY | 2025-02-18 14:26 | XMS_ITS ---
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 Normal [...] 03/19/2024 Assessment & Plan (03/19/2024 11:05 AM [employer]): Patient is interested in the steroid injections. Will refer him back to Orthopedics to discuss steroid injections for both of his knees Hand arthritis 03/19/2024 Assessment & Plan (03/19/2024 11:06 AM [employer]LECTRON[employer] ENGINE[employer]): Will obtain new x-rays today. Referral to ortho hand in [place]. I told him alternatively there would be Dr. Du at [facility]. Encounter for Medicare annual wellness exam [...] daily Assessment & Plan (07/13/2024 10:40 AM [employer]): Chronic problem. 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 In case of any extreme weakness, abdominal pain, diarrhea or dizziness, it is recommended for you to call an ambulance and proceed to the nearest emergency room. Assessment & Plan (07/05/2023 2:53 PM [employer]): Chronic problem. 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 In case of any extreme weakness, abdominal pain, diarrhea or dizziness, it is recommended for you to call an ambulance and proceed to the nearest emergency room. Assessment & Plan (05/19/2023 12:49 PM [employer]): Patient continuing his Prednisone and set to follow up with Dereje in June. Assessment & Plan (11/18/2022 3:01 PM CDT): Chronic problem. Discussed tapering prednisone dose from 15mg total/day down to 5mg daily. Reserving 10-15mg for sick days. Will call if any difficulties with tapering. Reviewed red flags. Will check TSH, T3, T4 today. Verified that he uses [employer]. Aware to check results/results letter in mychart. 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 In [...] 07/04/2022 Assessment & Plan (07/05/2022 7:58 PM [employer]RON[employer]INE[employer]): On 12/2021 started high dose steroid due [...] tapering. Assessment & Plan (07/04/2022 4:17 PM [employer]LECT[employer]ICAL ELECTRONICS ENGINEERS): On 12/2021 started high dose steroid due [...] Cardiology Assessment & Plan (05/19/2023 12:42 PM ELECTRICAL ELECTRONICS ENGINEERS): Patient continues to follow with Cardiology. Continues [...] changes. Assessment & Plan (07/05/2022 8:13 PM ELECTRICAL ELECTRONICS ENGINEERS): TTE 03/2022 with LV dilation with EF [...] 09/09/2022) Assessment & Plan (07/04/2022 4:23 PM [employer]LECT[employer]ICAL ELECTRONICS ENGINEERS): TTE 03/2022 with LV dilation with EF [...] cost Assessment & Plan (07/03/2022 5:05 PM ELECTRICAL ELECTRONICS ENGINEERS): TTE 03/2022 with LV dilation with EF [...] cost Assessment & Plan (04/05/2022 4:32 PM ELECTRICAL ELECTRONICS ENGINEERS): Heart Failure with Reduced Ejection Fraction: EF [...] currently Assessment & Plan (04/04/2022 3:23 PM ELECT[employer]ICAL ELECTRONICS ENGINEERS): Heart Failure with Reduced Ejection Fraction: EF 25% (TTE 03/2022), profile A, NYHA II, - Diuretic: None currently - Beta Jihan: Metoprolol tartrate 37.5 mg BID, will consolidate to XL prior to D/C - BRENTON/ARB/ARNI: On Entresto at home, will resume as tolerated - Device: No device currently Failure to thrive in adult 03/25/2022 Assessment & Plan (04/05/2022 4:31 PM ELECT[employer]ICAL ELECTRONICS ENGINEERS): - Patient presenting with decreased PO intake, noncompliance medications, reported wt loss - RD consult, currently on TF via DHT - Swallow evaluation to remove DHT and begin oral nutrition Assessment & Plan (04/04/2022 3:20 PM ELECT[employer]ICAL ELECTRONICS ENGINEERS): - Patient presenting with decreased PO intake, noncompliance medications, reported wt loss - RD consult, currently on TF via DHT Falls 03/25/2022 Assessment & Plan (04/05/2022 4:31 PM ELECT[employer]ICAL ELECTRONICS ENGINEERS): - Patient lives alone with reportedly intermittent falls at home; last prior to admission without reported head trauma - Head CT unremarkable - Fall precautions, empiric coverage for Wernicke per above Assessment & Plan (04/04/2022 3:20 PM [employer]LECT[employer] ELECTRONICS ENGINEERS): - Patient lives alone with reportedly intermittent falls at home; last prior to admission without reported head trauma - Head CT unremarkable - Fall precautions, empiric coverage for Wernicke per above - PT/OT High risk medication use 03/25/2022 Atrial fibrillation 12/01/2021 Overview (12/01/2021): Added automatically from request for surgery [id number] Assessment & Plan (01/19/2025 8:45 AM CDT): [...] 01/19 Assessment & Plan (07/05/2022 8:09 PM [employer]RON[employer] ENGINEERS): EKG on admission w/ AFL - eliquis - metop Assessment & Plan (07/04/2022 4:24 PM [employer]RON[employer] ENGINE[employer]): EKG on admission w/ AFL - eliquis - metop Assessment & Plan (07/02/2022 9:24 PM ELECT[employer]ICAL ELECTRONICS ENGINEERS): EKG on admission w/ AFL - eliquis - metop Assessment & Plan (04/05/2022 4:30 PM [employer]LECT[employer] ELECTRONICS ENGINEERS): Presenting with Afib with HR currently at goal < 110, episode of hypotension 03/29 with RVR requiring ICU transfer - On metoprolol tartrate 37.5 mg BID, rate controlled - Continue telemetry for now (currently rate controlled) - Theraputic lovenox Assessment & Plan (04/04/2022 3:18 PM [employer]LECT[employer] ELECTRON[employer] ENGINEERS): Presenting with Afib with HR currently at [...] function Assessment & Plan (03/28/2022 2:53 PM ELECT[employer] ELECTRONICS ENGINEERS): - Recent TTE 2wks ago with EF [...] daily. Assessment & Plan (07/05/2022 8:06 PM ELECT[employer] ELECTRONICS ENGINEERS): Statin Assessment & Plan (07/04/2022 4:23 PM ELECTRICAL ELECTRONICS ENGINEERS): Statin Assessment & Plan (07/03/2022 5:08 PM ELECTRICAL ELECTRONICS ENGINEERS): Statin Assessment & Plan (04/05/2022 4:32 PM ELECTRICAL ELECTRONICS ENGINEERS): - Cont statin once able to tolerate PO Assessment & Plan (03/25/2022 11:54 PM ELECTRICAL ELECTRONICS ENGINEERS): - Cont statin Hypertension 08/28/2021 Assessment & [...] per Assessment & Plan (04/05/2022 4:32 PM ELECTRICAL ELECTRONICS ENGINEERS): - Submassive PE diagnosed in 07/2021 - CT PE negative here (in setting of apixaban noncompliance) - Lovenox Assessment & Plan (04/04/2022 3:21 PM ELECTRICAL ELECTRONICS ENGINEERS): - Submassive PE diagnosed in 07/2021 - CT PE negative here (in setting of apixaban noncompliance) - Lovenox Clear cell carcinoma of kidney, 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 Mccauley. Dx 2018. S/p ablation and radical nephrectomy. Completed 5 cycles of pembrolizumab 3-12/2021. 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 Mccauley. Bee 2018. S/p ablation and radical nephrectomy. Completed 5 cycles of pembrolizumab . 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 Mccauley. Bee 2017. S/p ablation and radical nephrectomy. Completed 5 cycles of pembrolizumab . 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 Mccauley. Bee 2018. S/p ablation and radical nephrectomy. Completed 5 cycles of pembrolizumab . 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 - Continues on IVIG and solumedrol per oncology Assessment & Plan (04/04/2022 3:20 PM ELECTRICAL ELECTRONICS ENGINEERS): Follows with Dr. Mccauley. Bee 2018. S/p ablation and radical nephrectomy. Completed 5 cycles of pembrolizumab . 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 - Continues on IVIG and solumedrol per oncology Chronic left shoulder pain 02/18/2016 Acute renal failure superimposed on chronic kidn ey disease Assessment & Plan (07/05/2022 8:12 PM ELECTRICAL ELECTRONICS ENGINEERS): Cr 1.8 (baseline 1) - euvolemic on exam without recent GI losses or poor PO intake - IVF were hold - Initially aldactone, entresto and lasix were hold. - Cr improve to 1.37. - Restarted entresto and lower dose of lasix (from 40 mg daily to 20 mg daily) Assessment & Plan (07/04/2022 4:25 PM ELECTRICAL ELECTRONICS ENGINEERS): Cr 1.8 (baseline 1) - euvolemic on exam without recent GI losses or poor PO intake - Cr improve to 1.47. - would not give fluids - Hold aldactone, entresto and lasix Assessment & Plan (07/03/2022 5:08 PM ELECTRICAL ELECTRONICS ENGINEERS): Cr 1.8 (baseline 1) - euvolemic on exam without recent GI losses or poor PO intake - improving without intervention - would not give fluids - Hold aldactone, entresto and lasix Assessment & Plan (04/05/2022 4:30 PM ELECTRICAL ELECTRONICS ENGINEERS): - Presenting with Cr 1.81 up from baseline ~1.3 in setting of decreased PO intake, now resolved with supportive care - Avoid nephrotoxins, renal-dose meds Assessment & Plan (04/04/2022 3:18 PM ELECTRICAL ELECTRONICS ENGINEERS): - Presenting with Cr 1.81 up from baseline ~1.3 in setting of decreased PO intake, now resolved with supportive care - Avoid nephrotoxins, renal-dose meds Drug reaction Neurotoxicity Assessment & Plan (07/05/2022 7:58 PM ELECTRICAL ELECTRONICS ENGINEERS): 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, high dose steroids, now on pred 10 daily - On the ED receive hydrocortisone 59 ng x 3 - Steroid as mention - should not need PJP ppx on this dose - start PPI ppx Assessment & Plan (07/04/2022 4:19 PM ELECTRICAL ELECTRONICS ENGINEERS): 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, high dose steroids, now on pred 10 daily - On the ED receive hydrocortisone 59 ng x 3 - Steroid as mention - should not need PJP ppx on this dose - start PPI ppx Assessment & Plan (07/03/2022 4:51 PM ELECTRICAL ELECTRONICS ENGINEERS): 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 Assessment & Plan (07/04/2022 4:23 PM ELECTRICAL ELECTRONICS ENGINEERS): SBP has been on the low 100s [...] lasix Assessment & Plan (07/03/2022 5:03 PM ELECTRICAL ELECTRONICS ENGINEERS): SBP has been on the low 100s [...] 12/26/2024 Assessment & Plan (07/05/2022 7:54 PM ELECTRICAL ELECTRONICS ENGINEERS): home metal #5 - does not use trach collar Assessment & Plan (07/04/2022 4:17 PM ELECTRICAL ELECTRONICS ENGINEERS): home metal #5 - does not use trach collar Assessment & Plan (07/02/2022 10:20 PM ELECTRICAL ELECTRONICS ENGINEERS): home metal #5 - does not use trach collar Shortness of breath 07/01/2022 10/14/19 23 Assessment & Plan (07/05/2022 8:13 PM ELECTRICAL ELECTRONICS ENGINEERS): PHx of HFrEF (EF 20%), PE on [...] No wheezing on exam. Stress test at [facility] 2018 (media) indeterminate. May have had ischemic eval afterwards but records not available. Cardiac MRI 06/2022 w/ Dilated cardiomyopathy with markedly reduced right and left ventricular ejection fraction. No evidence of myocarditis Plan: - empiric coverage for PNM: CTX, azithro for 3 days - BCx NGTD - Resolve SOB Assessment & Plan (07/04/2022 4:19 PM ELECTRICAL ELECTRONICS ENGINEERS): PHx of HFrEF (EF 20%), PE on [...] No wheezing on exam. Stress test at [facility] 2019 (media) indeterminate. May have had [...] 09/09/2022) Assessment & Plan (07/03/2022 4:48 PM ELECTRICAL ELECTRONICS ENGINEERS): PHx of HFrEF (EF 20%), PE on [...] No wheezing on exam. Stress test at [facility] 2018 (media) indeterminate. May have had [...] (06/03/2022): Added automatically from request for surgery [id number] Severe malnutrition 03/26/2022 11/21/19 24 Assessment & Plan (04/05/2022 4:32 PM ELECTRICAL ELECTRONICS ENGINEERS): RD following, continue TF - EXAMINATION SCORER to follow for continued swallow eval given risk of aspiration Assessment & Plan (04/04/2022 3:21 PM ELECTRICAL ELECTRONICS ENGINEERS): RD following, continue TF - EXAMINATION SCORER to follow for continued swallow eval given risk of aspiration Hypercalcemia 03/25/2022 03/26/2022 Assessment & Plan (03/25/2022 11:54 PM ELECTRICAL ELECTRONICS ENGINEERS): - Presume secondary to dehydration - monitor s/p IVF SIRS (systemic inflammatory response syndrome) 03/25/2022 12/07/2024 Shortness of breath 03/09/2022 03/25/20 22 Assessment & Plan (03/25/2022 11:55 PM ELECTRICAL ELECTRONICS ENGINEERS): - Hypotension 12/14/2021 10/13/2022 Cor pulmonale, acute 08/20/2021 024 Postural dizziness with presyncope 08/08/2021 10/07/2021 Stage 3a chronic kidney disease 08/08/2021 10/07/2021 Tachycardia 08/08/2021 10/07/2021 Adenomatous polyp of colon 03/21/2018 0 10/13/2022 Right kidney mass 03/15/2018 10/07/2021 Impingement syndrome of left shoulder 03/22/2013 10/07/2021 Prediabetes 06/15/2011 10/07/2021
--- OUTSIDE RECORDS SUMMARY | 2025-02-18 14:26 | XMS_ITS | Encounter Summary ---
Author Organization [facility] Address [address] [place] [address] Phone Care Team Providers Care Rougher Helper Name Role Phone Mykel Mccauley DO Unavailable Yaya Elizondo MD Primary Care Provider Micheal Cabral MD Unavailable [phone] Yaya Elizondo MD Primary Care Provider [phone] Jeferson Elena MD Primary Care Provider Artie Henderson MD Unavailable Ana M Renteria MD Unavailable [phone] Shiva Barrientos MD Unavailable Aileen Griffin NP Unavailable Parth Dalton MD Unavailable Encounter Details Date Type Department Care Team (Late st Contact Info) Description 03/08/2022 Documentation [facility]8 [facility] [address] [place] [phone] Mykel Mccauley DO [address] [facility] [address] [place] [phone] Social History Tobacco Use Types Packs/Day Years [...] often do you attend chur ch or hindu services? Never 12/23/2021 Do you belong to any clubs o r organizations such as druze groups, unions, fraternal or athletic groups, or [...] slept in a custodial (including now)? 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 03/23/2022 03/23/2022 06/21/2022 3:[address] COVID: Suspected 07/01/2022 07/01/2022 07/01/2022 5:41 PM [employer] COVID: Suspected 07/03/2022 07/03/2022 07/03/2022 1:37 PM [employer] COVID: Suspected 07/10/2024 07/10/2024 07/10/2024 2:32 PM [employer] Ring Surveillance: C. auris Comment:This flag is [...] documented as of this encounter Care Teams Rougher Helper Relationship Specialty Start Date End Date Yaya Elizondo MD 1418 [facility], [address] [address] PCP - General Family Medicine 10/07/21 01/23/23 Yaya Elizondo MD [address] [address] PCP - General Family Medicine 01/24/23 02/16/23 Jeferson Elena MD [address] [address] PCP - General Family Medicine 02/17/23 Mykel Mccauley DO 1418 [facility], [address] [address] Medical Oncologist/Hematologis t Hematology and Oncology 08/28/21 Micheal Cabral MD 4921 [facility] [address] [facility] [place] [address] Consulting Physician General Surgery 08/11/22 Artie Henderson MD [address] [facility] [address] [place] [address] Referring Physician Cardiology 02/17/23 Ana M Renteria MD [address] [facility] [address] [place] [address] Referring Physician Cardiology 11/21/23 [place] [address] [address] Consulting Physician Endocrinology Diabetes & Metabolism 11/21/23 [place] [address] [address] Nurse Practitioner Endocrinology Diabetes & Metabolism 11/21/23 Parth Dalton MD [id number] [place] [address] Surgeon Cardiothoracic Surgery 12/07/24 documented as of this encounter
--- NOTE | 2025-02-18 14:41 | ECG_ITS ---
Test Date: 2025-02-18 14:48:19 Measurements Intervals [place] Rate: 101 P: 74 [place]: 210 QRS: -35 QRSD: 158 T: 0 QT: 363 QTc: 472 Interpretive Statements SINUS TACHYCARDIA WITH FIRST DEGREE AV BLOCK LEFT AXIS DEVIATION RIGHT BUNDLE BRANCH BLOCK CONSIDER INFERIOR INFARCT, AGE INDETERMINATE BASELINE ARTIFACT- I, II, III, AVR, AVL ABNORMAL ECG Compared to ECG 02/03/2025 11:54:11 HEART RATE HAS INCREASED Electronically Signed On 02-18-2025 14:53:52 CDT by Blanco Scott D.O.
[2025-02-18 14:59] LABS: Hematocrit 30.0 % (42.0-52.0); Hemoglobin 9.7 g/dL (14.0-18.0); Immature Granulocyte Percent A 0.5 % (0-0.5); Lymphocytes Absolute Auto 0.45 K/mm3 (0.9-3.2); Mean Corpuscular HGB Conc 32.3 g/dl (32-36); Mean Corpuscular Hemoglobin 30.9 pg (26-34); Mean Corpuscular Volume 95.5 fl (80-100); Nucleated Red Blood Cells Absolute Auto 0.000 K/mm3 (0.0-0.012); Nucleated Red Blood Cells Perc 0.0 % (0.0-0.2); Platelet Count Result 140 k/mm3 (150-375); Red Blood Count 3.14 M/mm3 (4.6-6.20); White Blood Count 6.2 K/mm3 (4.5-10.0)
[2025-02-18 15:05] VITALS: BP 132/86; PULSE 102; RESP 22; O2SAT 100
[2025-02-18 15:18] LABS: Alanine Aminotransferase 11 U/L (6-50); Albumin Level 3.5 g/dL (3.5-5.1); Alkaline Phosphatase 57 U/L (38-126); Anion Gap 11 mmol/L (4-12); Aspartate Amino Transferase 23 U/L (17-59); Bilirubin,Total 1.5 mg/dL (0.2-1.3); Blood Urea Nitrogen 13 mg/dL (9-20); Calcium 7.9 mg/dL (8.4-10.2); Carbon Dioxide 20 mmol/L (22-30); Chloride 104 mmol/L (98-107); Estimated CRCL calculation 53 ml/min; Estimated Glomerular Filt Rate > 60; Glucose 94 mg/dL (65-110); Potassium 3.6 mmol/L (3.4-5.0); Sodium 135 mmol/L (137-145); Total Protein 6.5 g/dL (6.3-8.2)
[2025-02-18 15:57] LABS: NT Pro B Type Natriuretic Pept 1920 pg/mL (19.9-100)
--- NOTE | 2025-02-18 16:44 | ED.SOB ---
HPI - SOB/Dyspnea General Chief Complaint: Shortness of Breath/Dyspnea Stated Complaint: Shortness of breath/cough-Has Tracheostomy Time Seen by Provider: 02/18/25 12:46 Source: patient and family Mode of arrival: ambulatory Limitations: no limitations History of Present Illness HPI Narrative: 75-year-old history of CAD status post CABG 6 weeks ago, status post tracheostomy was in 25 years ago presents to the ER with a complaint of shortness of breath speech is been ongoing issue for last several years however for the past few days he states that he is unable to walk more 15-20 feet. Denies any chest pain. No history of fever or chills. Has occasional nonproductive cough. MD elicited complaint: shortness of breath Pertinent past history: tracheostomy Onset (ago): year(s) Timing: constant Severity: moderate Exacerbating factors: exertion Relieving factors: nothing Associated symptoms: denies other symptoms Related Data Allergies Allergy/AdvReac Type Severity Reaction Status Date / Time pembrolizumab (From [employer]) Allergy Other Verified 02/18/25 12:25 Review of Systems Review of Systems: All systems reviewed & are unremarkable except as noted in HPI and below Constitutional: Constitutional: Reports no additional constitutional complaints Eyes: Eyes: Reports no additional eye complaints ENT: Reports system reviewed and no additional complaints, except as documented Cardiovascular: Cardiovascular: Reports no additional cardiovascular complaints Respiratory: Respiratory: Reports as per HPI and Reports no additional respiratory complaints Gastrointestinal: Gastrointestinal: Reports no additional gastrointestinal complaints Musculoskeletal: Musculoskeletal: Reports no additional musculoskeletal complaints Integumentary/Breasts: Skin/Breast: Reports system reviewed and no additional complaints, except as docu PMFSH Past Medical History Medical History Insomnia HTN (hypertension) Adrenal insufficiency Cardiomyopathy Tracheostomy dependent CAD (coronary artery disease) Renal carcinoma Pelvic fracture Hip fracture GERD (gastroesophageal reflux disease) High cholesterol Pulmonary emboli Chronic anticoagulation Surgical History Surgical History History of nephrectomy History of laryngectomy Family History Family History Mother Heart disease Hypertension Father Heart disease Hypertension Social History Social History Social History: Patient just moved back here from [place] due to treatment. 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 He wishes to be a full code at this time Smoking packs per day: 0.5 Smoking cigarettes per day: 10.0 Years smoked: 10 Smoking pack-years: 5.00 Smoking status: Former smoker Tobacco type: cigarettes Second hand tobacco smoke exposure: No Smoking end date: 05/16/01 Alcohol intake: current Drinks per week: 14 Alcohol use details: 2 glasses of wine every day Substance use: current Substance use type: marijuana Last use: 11/19/21 Lack of Transportation: No Lack of Food: Never True Current Housing: I Have Housing Concerned About Future Housing: No Difficulty Paying Gas/Electric Bills: No Difficulty Paying for Meds: No Currently Unemployed: No Education: Don't Know Difficulty w/ Childcare or Family Care: No Living arrangements: with family Occupation/Education: retired Additional occupation/education comments: 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 HEAD: Normocephalic, atraumatic. EYES: PERRLA and EOMI. ENT: Nares clear, no rhinorrhea or epistaxis. Mucous membranes moist. NECK: Supple. Has tracheostomy CHEST: Clear to auscultation. No respiratory distress. HEART: Regular rate and rhythm. No murmur heard. Normal peripheral pulses. ABDOMEN: Soft, nontender, nondistended, normal active bowel sounds. EXTREMITIES: Normal range of motion. No edema. SKIN: Warm, dry, no rash. NEURO: No focal deficits. Alert and oriented x3. PSYCH: Normal mood and affect. Course Course Emergency Course: Notified patient and his about the lab work, chest x-ray findings. I discussed with the CT surgeon at [facility] , recommended to continue home medication. Has an appointment to see him in 2 days. Vital Signs Vital signs: Vital Signs Temperature 36.6 C 02/18/25 12:36 Pulse Rate 110 H 02/18/25 12:36 Respiratory Rate 24 H 02/18/25 12:36 Blood Pressure 104/73 02/18/25 12:36 Pulse Oximetry 96 02/18/25 12:36 Oxygen Delivery Room Air 02/18/25 12:36 Temperature 36.6 C 02/18/25 12:36 Pulse Rate 102 H 02/18/25 15:05 Respiratory Rate 22 H 02/18/25 15:05 Blood Pressure 132/86 02/18/25 15:05 Pulse Oximetry 100 02/18/25 15:05 Oxygen Delivery Room Air 02/18/25 13:08 MDM - SOB/Dyspnea Differential Diagnosis Differential diagnosis: Likely acute exacerbation of chronic obstructive airways disease and congestive heart failure Medical Records Attestation: I reviewed the patient's medical records. Lab Data Attestation: I reviewed the patient's lab results. 02/18/25 14:52 02/18/25 14:52 Labs: Lab Results 02/18/25 Range/Units 14:52 WBC 6.2 (4.5-10.0) K/mm3 RBC 3.14 L (4.6-6.20) M/mm3 Hgb 9.7 L (14.0-18.0) g/dL Hct 30.0 L (42.0-52.0) % MCV 95.5 (80-100) fl MCH 30.9 (26-34) pg MCHC 32.3 (32-36) g/dl RDW 16.1 H (11.5-14.5) % Plt Count 140 L (150-375) k/mm3 MPV 9.6 (7.4-10.4) fl Immature Gran % (Auto) 0.5 (0-0.5) % Neut % (Auto) 85.3 H (45.5-73.1) % Lymph % (Auto) 7.3 L (18.3-44.2) % [place] % (Auto) 6.0 (2.6-8.5) % Eos % (Auto) 0.6 (0-4.4) % Baso % (Auto) 0.3 (0.2-1.2) % Lymph # (Auto) 0.45 L (0.9-3.2) K/mm3 [place] # (Auto) 0.4 (0.1-0.6) K/mm3 Eos # (Auto) 0.0 (0-0.3) K/mm3 Baso # (Auto) 0.0 (0.0-0.1) K/mm3 Abs Immat Gran (auto) 0.03 (0.00-0.031) K/mm3 Absolute Neuts (auto) 5.3 (1.3-6.7) K/mm3 Absolute Nucleated RBC 0.000 (0.0-0.012) K/mm3 Nucleated RBC % 0.0 (0.0-0.2) % Sodium 135 L (137-145) mmol/L Potassium 3.6 (3.4-5.0) mmol/L Chloride 104 (98-107) mmol/L Carbon Dioxide 20 L (22-30) mmol/L Anion Gap 11 (4-12) mmol/L BUN 13 (9-20) mg/dL Creatinine 1.10 (0.7-1.3) mg/dL Estim Creat Clear Calc 53 ml/min Estimated GFR > 60 (59 - ) Glucose 94 (65-110) mg/dL Calcium 7.9 L (8.4-10.2) mg/dL Total Bilirubin 1.5 H (0.2-1.3) mg/dL AST 23 (17-59) U/L ALT 11 (6-50) U/L Alkaline Phosphatase 57 (38-126) U/L NT-Pro-B Natriuret Pep 1920 H (19.9-100) pg/mL Total Protein 6.5 (6.3-8.2) g/dL Albumin 3.5 (3.5-5.1) g/dL Imaging Data Radiologist's impression: ITS Impressions Chest X-Ray 02/18/25 15:06 Impression: No acute cardiopulmonary abnormality. ECG Data EKG #1: ECG completion date: 02/18/25 ECG completion time: 14:48 EKG Interpretation: tachycardia (101), LBBB, left axis and no acute changes Discharge Plan Discharge Clinical Impression: Chronic shortness of breath Patient Disposition: Home Condition: Stable Instructions: Shortness of Breath (ED) Additional Instructions: Continue home medication, follow-up with the cardiothoracic surgeon as scheduled. Patient Language: Bulgarian Prescriptions: No Action ipratropium-albuterol 0.5 mg-3 mg(2.5 mg base)/3 mL Solution For Nebulization 3 ml inhalation Q6HR Qty: 90 0RF docusate sodium 100 mg Capsule 100 mg PO Q12HR Qty: 0 0RF aspirin [Children's Aspirin] 81 mg Tablet,Chewable 81 mg PO DAILY Qty: 0 0RF digoxin 125 mcg (0.125 mg) Tablet 62.5 mcg PO QAM Qty: 30 0RF escitalopram oxalate 10 mg Tablet 10 mg PO DAILY Qty: 30 0RF ezetimibe [Zetia] 10 mg Tablet 10 mg PO QAM Qty: 30 0RF sennosides [Senokot] 8.6 mg Tablet 8.6 mg PO BID Qty: 0 0RF prednisone 5 mg Tablet 5 mg PO DAILY Qty: 30 0RF tamsulosin 0.4 mg Capsule 0.4 mg PO QAM Qty: 30 0RF metoprolol tartrate 25 mg Tablet 6.25 mg PO Q12HR Qty: 30 0RF atorvastatin 80 mg Tablet 80 mg PO DAILY Qty: 30 0RF spironolactone 25 mg tablet 12.5 mg PO DAILY 30 Days Qty: 15 0RF pantoprazole 40 mg Tablet,Delayed Release (Dr/Ec) 40 mg PO QAM Qty: 30 0RF Eliquis 5 mg tablet 5 mg PO BID Qty: 60 0RF furosemide 40 mg Tablet 40 mg PO QAM Qty: 30 0RF thiamine HCl (vitamin B1) [Vitamin B-1] 100 mg Tablet 100 mg PO QAM Qty: 30 0RF folic acid 1 mg Tablet 1 mg PO DAILY Qty: 30 0RF Follow-up/Referrals: Kassy,Jeferson Mccarthy MD [Primary Care Provider, Unknown] Time of Disposition: 17:03
[2025-02-18 17:19] VITALS: BP 130/83; PULSE 98; RESP 20; O2SAT 96
--- OUTSIDE RECORDS SUMMARY | 2025-04-06 19:00 | XMS_ITS | Clinical Summary ---
Author Organization Unknown Care Team Providers Care Acoustical Engineer Name Role Phone DIGNA STACEYBRIANNE, ESTRELLA Unavailable Unava dinora STOKES RN, FRANKIE Unavailable Unavailabl e SMITH DIE DESIGNER APPRENTICE, MICHAEL Unavailable Unavailable KARI PT, DIDI Unavailable Unavailable NAT EDUCATIONAL FUNDRAISING DIRECTOR, GAUDENCIO Unavailable Unavailabl e RADHA OT, ROLANDO Unavailable Unavailable Payers Payer Name Policy Type Policy Number Effective Date Expira tion Date MEDICARE.[facility] [id number] Problems Condition Name Condition Details Condition Category Status Onset Date Resolution Date Last Treatment Date Treating Clinician Comments 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: 00 PNEUMONIA, UNSPECIFIED ORGANISM Active 02-07 00:00: 00 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 CHR KDNY Active 02-07 00:00: 00 CHRONIC SYSTOLIC (CONGESTIVE) HEART FAILURE Active 02-07 00:00: 00 TYPE 2 DIABETES MELLITUS W DIABETIC CHRONIC KIDNEY DISEASE Active 02-07 00:00: 00 CHRONIC KIDNEY DISEASE, STAGE 3 UNSPECIFIED Active 02-07 00:00: 00 ANEMIA IN CHRONIC KIDNEY DISEASE Active 02-07 00:00: 00 ATHSCL HEART DISEASE OF [place] CORONARY ARTERY W/O ANG PCTRS Active 02-07 00:00: 00 UNSPECIFIED MOOD [AFFECTIVE] DISORDER Active 02-07 00:00: 00 UNSPECIFIED OSTEOARTHRIT IS, UNSPECIFIED SITE Active 02-07 00:00: 00 INSOMNIA, UNSPECIFIED Active 02-07 00:00: 00 DEPRESSION, UNSPECIFIED Active 02-07 00:00: 00 ORTHOSTATIC HYPOTENSION Active 02-07 00:00: 00 UNSPECIFIED ATRIAL FIBRILLATION Active 02-07 00:00: 00 UNSPECIFIED ADRENOCORTIC AL INSUFFICIENC Y Active 02-07 00:00: 00 CARDIOMYOPAT HY, UNSPECIFIED Active 02-07 00:00: 00 GASTRO-ESOPH AGEAL REFLUX DISEASE WITHOUT ESOPHAGITIS Active 02-07 00:00: 00 HYPERLIPIDEM IA, UNSPECIFIED Active 02-07 00:00: 00 DYSPHAGIA, UNSPECIFIED Active 02-07 00:00: 00 TRACHEOSTOMY STATUS Active 02-07 00:00: 00 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 Active 02-07 00:00: 00 SKILLED NURSING (CURRENT) USE OF SYSTEMIC STEROIDS Active 02-07 00:00: 00 PRESENCE OF AORTOCORONAR Y BYPASS GRAFT Active 02-07 00:00: 00 Personal history of colon polyps, unspecified Active 02-07 00:00: 00 Allergies, Adverse Reactions, Alerts Allergy Name Allergy Type Status Severity Reaction(s) Onset Date Inactive Date Treating Clinician Comments PEMBROLIZUMA B Propensity to adverse reactions Active 02-07 14:24: 02 Vital Signs Vital Name Observation Time Observation Value Commen ts Temperature 2025-02-18 11:05:00.000 98.5 [degF] Temperature 2025-02-14 14:13:00.000 97.9 [degF] Temperature 2025-02-13 11:36:00.000 96.7 [degF] Temperature 2025-02-11 15:31:00.000 98.2 [degF] Temperature 2025-02-08 14:13:00.000 98.2 [degF] Temperature 2025-02-07 15:18:00.000 97.7 [degF] BMI (%) 2025-02-07 14:51:33.000 27 kg/m2 Height 2025-02-07 14:51:28.000 70 [in_us] Pulse 2025-02-18 11:05:00.000 60 /min Pulse 2025-02-14 14:13:00.000 94 /min Pulse 2025-02-13 11:36:00.000 82 /min Pulse 2025-02-11 15:31:00.000 92 /min Pulse 2025-02-08 14:14:00.000 100 /min Pulse 2025-02-07 15:18:00.000 104 /min O2 Saturation (%) 2025-02-18 11:05:00.000 96 % O2 Saturation (%) 2025-02-14 14:13:00.000 97 % O2 Saturation (%) 2025-02-13 11:36:00.000 99 % O2 Saturation (%) 2025-02-11 15:31:00.000 98 % O2 Saturation (%) 2025-02-08 14:13:00.000 96 % O2 Saturation (%) 2025-02-07 15:18:00.000 98 % Respirations 2025-02-18 11:05:00.000 26 /min Respirations 2025-02-14 14:13:00.000 18 /min Respirations 2025-02-13 11:36:00.000 18 /min Respirations 2025-02-11 15:31:00.000 20 /min Respirations 2025-02-08 14:13:00.000 19 /min Respirations 2025-02-07 15:18:00.000 20 /min Weight (lbs) 2025-02-07 14:51:33.000 195 [lb_av] Systolic Blood Pressure 2025-02-18 11:05:00.000 118 mm [Hg] Systolic Blood Pressure 2025-02-14 14:38:00.000 101 mm [Hg] Systolic Blood Pressure 2025-02-14 14:13:00.000 148 mm [Hg] Systolic Blood Pressure 2025-02-13 11:36:00.000 114 mm [Hg] Systolic Blood Pressure 2025-02-11 15:38:00.000 122 mm [Hg] Systolic Blood Pressure 2025-02-11 15:38:00.000 90 mm[ Hg] Systolic Blood Pressure 2025-02-11 15:31:00.000 130 mm [Hg] Systolic Blood Pressure 2025-02-08 14:29:00.000 105 mm [Hg] Systolic Blood Pressure 2025-02-08 14:13:00.000 139 mm [Hg] Systolic Blood Pressure 2025-02-07 15:18:00.000 120 mm [Hg] Diastolic Blood Pressure 2025-02-18 11:05:00.000 [...] Test SN 1WK9 PT 1WK1 OT EFFECTIVE 02/10/2025WK1 RESPIRATORY SYSTEM MANAGEMENT; RN TO ASSESS AND TEACH, DIE DESIGNER APPRENTICE/SOFTWARE QUALITY SPECIALIST TO OBSERVE AND TEACH RELATED TO ALTERED RESPIRATORY STATUS TO MINIMIZE COMPLICATIONS AND REDUCE HOSPITALIZATION. [code = SN 1WK9 PT 1WK1 OT EFFECTIVE 02/10/2025 RESPIRATORY SYSTEM MANAGEMENT; RN TO ASSESS AND TEACH, DIE DESIGNER APPRENTICE/SOFTWARE QUALITY SPECIALIST TO OBSERVE AND TEACH RELATED TO ALTERED RESPIRATORY STATUS TO MINIMIZE COMPLICATIONS AND REDUCE HOSPITALIZATION.] Future Scheduled Test TRACHEOSTO MY CARE MANAGEMENT; RN/DIE DESIGNER APPRENTICE/SOFTWARE QUALITY SPECIALIST TO INSTRUCT PATIENT/CAREGIVER ON CARE AND MANAGEMENT OF TRACHEOSTOMY. RN/ DIE DESIGNER APPRENTICE/SOFTWARE QUALITY SPECIALIST TO PROVIDE SKILLED TEACHING ON TRACH COLLAR SUCTIONING PRN WITH 14 FR SUCTION CATHETER PER PATIENT TRACH CARE WITH INNER CANNULA: REMOVE INNER CANNULA, CLEANSE WITH NORMAL SALINE AND OR STERILE WATER AND REINSERT NON-DISPOSABLE CANNULA SIZE OF INNER CANNULA 5 BROOKS [code = TRACHEOSTOMY CARE MANAGEMENT; RN/DIE DESIGNER APPRENTICE/SOFTWARE QUALITY SPECIALIST TO INSTRUCT PATIENT/CAREGIVER ON CARE AND MANAGEMENT OF TRACHEOSTOMY. RN/ DIE DESIGNER APPRENTICE/SOFTWARE QUALITY SPECIALIST TO PROVIDE SKILLED TEACHING ON TRACH COLLAR SUCTIONING PRN WITH 14 FR SUCTION CATHETER PER PATIENT TRACH CARE WITH INNER CANNULA: REMOVE INNER CANNULA, CLEANSE WITH NORMAL SALINE AND OR STERILE WATER AND REINSERT NON-DISPOSABLE CANNULA SIZE OF INNER CANNULA 5 BROOKS] Future Scheduled Test FALL REDUC TION MANAGEMENT; RN TO ASSESS AND OBSERVE, DIE DESIGNER APPRENTICE/SOFTWARE QUALITY SPECIALIST TO OBSERVE FALL RISK FACTORS AND EDUCATE PATIENT/CAREGIVER ON STRATEGIES TO MINIMIZE THE RISK OF FALLING. [code = FALL REDUCTION MANAGEMENT; RN TO ASSESS AND OBSERVE, DIE DESIGNER APPRENTICE/SOFTWARE QUALITY SPECIALIST TO OBSERVE FALL RISK FACTORS AND EDUCATE PATIENT/CAREGIVER ON STRATEGIES TO MINIMIZE THE RISK OF FALLING.] Future Scheduled Test ANEMIA MAN AGEMENT; RN TO ASSESS AND TEACH, SOFTWARE QUALITY SPECIALIST/DIE DESIGNER APPRENTICE TO OBSERVE AND TEACH AND PROVIDE EDUCATION ON ANEMIA. [code = ANEMIA MANAGEMENT; RN TO ASSESS AND TEACH, SOFTWARE QUALITY SPECIALIST/DIE DESIGNER APPRENTICE TO OBSERVE AND TEACH AND PROVIDE EDUCATION ON ANEMIA.] Future Scheduled Test RN TO OBSE RVE, ASSESS, EVALUATE, AND DEVELOP AN INDIVIDUALIZED PLAN OF CARE. AGENCY MAY ACCEPT ORDERS FROM CONSULTING PHYSICIANS RN TO OBSERVE AND ASSESS, DIE DESIGNER APPRENTICE/SOFTWARE QUALITY SPECIALIST TO OBSERVE FOR RISK FOR FALLS AND INSTRUCT IN FALL PREVENTION, HOME SAFETY, MEDICATION MANAGEMENT, INFECTION PREVENTION, AND NUTRITION MANAGEMENT. RN/DIE DESIGNER APPRENTICE/SOFTWARE QUALITY SPECIALIST NURSE MAY PERFORM O2 SATURATION LEVEL ON ADMISSION AND PRN FOR RN TO ASSESS/DIE DESIGNER APPRENTICE TO OBSERVE PATIENT, WITH NOTIFICATION TO THE PHYSICIAN IF SATURATION IS 90% IN THE ABSENCE OF MORE SPECIFIC PARAMETERS FROM THE PHYSICIAN. AGENCY MAY PERFORM A RESUMPTION OF CARE VISIT FOLLOWING ANY HOSPITAL ADMISSION. RN/DIE DESIGNER APPRENTICE/SOFTWARE QUALITY SPECIALIST TO MONITOR CO-MORBID CONDITIONS LISTED ON THE PLAN OF CARE AND ANY NEW CONDITIONS THAT PRESENT THEMSELVES DURING THIS EPISODE TO IDENTIFY CHANGES AND INTERVENE TO MINIMIZE COMPLICATIONS. [code = RN TO OBSERVE, ASSESS, EVALUATE, AND DEVELOP AN INDIVIDUALIZED PLAN OF CARE. AGENCY MAY ACCEPT ORDERS FROM CONSULTING PHYSICIANS RN TO OBSERVE AND ASSESS, DIE DESIGNER APPRENTICE/SOFTWARE QUALITY SPECIALIST TO OBSERVE FOR RISK FOR FALLS AND INSTRUCT IN FALL PREVENTION, HOME SAFETY, MEDICATION MANAGEMENT, INFECTION PREVENTION, AND NUTRITION MANAGEMENT. RN/DIE DESIGNER APPRENTICE/SOFTWARE QUALITY SPECIALIST NURSE MAY PERFORM O2 SATURATION LEVEL ON ADMISSION AND PRN FOR RN TO ASSESS/DIE DESIGNER APPRENTICE TO OBSERVE PATIENT, WITH NOTIFICATION TO THE PHYSICIAN IF SATURATION IS 90% IN THE ABSENCE OF MORE SPECIFIC PARAMETERS FROM THE PHYSICIAN. AGENCY MAY PERFORM A RESUMPTION OF CARE VISIT FOLLOWING ANY HOSPITAL ADMISSION. RN/DIE DESIGNER APPRENTICE/SOFTWARE QUALITY SPECIALIST TO MONITOR CO-MORBID CONDITIONS LISTED ON THE PLAN OF CARE AND ANY NEW CONDITIONS THAT PRESENT THEMSELVES DURING THIS EPISODE TO IDENTIFY CHANGES AND INTERVENE TO MINIMIZE COMPLICATIONS.] Future Scheduled Test PAIN MANAG EMENT; RN TO ASSESS AND TEACH, SOFTWARE QUALITY SPECIALIST/DIE DESIGNER APPRENTICE TO OBSERVE AND TEACH AND PROVIDE EDUCATION ON PAIN MANAGEMENT TECHNIQUES. [code = PAIN MANAGEMENT; RN TO ASSESS AND TEACH, SOFTWARE QUALITY SPECIALIST/DIE DESIGNER APPRENTICE TO OBSERVE AND TEACH AND PROVIDE EDUCATION ON PAIN MANAGEMENT TECHNIQUES.] Future Scheduled Test RISK FOR H OSPITALIZATION; RN TO ASSESS/TEACH, SOFTWARE QUALITY SPECIALIST/DIE DESIGNER APPRENTICE TO OBSERVE/TEACH PATIENT/CAREGIVER ON RISK FOR HOSPITALIZATION/EMERGENCY ROOM VISITS, TEACH SIGNS AND SYMPTOMS THAT PUT PATIENT AT RISK, WHEN TO NOTIFY NURSE/PHYSICIAN OF COMPLICATIONS/DECLINE, AND WHEN TO CALL 911. [code = RISK FOR HOSPITALIZATION; RN TO ASSESS/TEACH, SOFTWARE QUALITY SPECIALIST/DIE DESIGNER APPRENTICE TO OBSERVE/TEACH PATIENT/CAREGIVER ON RISK FOR HOSPITALIZATION/EMERGENCY ROOM VISITS, TEACH SIGNS AND SYMPTOMS THAT PUT PATIENT AT RISK, WHEN TO NOTIFY NURSE/PHYSICIAN OF COMPLICATIONS/DECLINE, AND WHEN TO CALL 911.] Future Scheduled Test CARDIOVASC ULAR SYSTEM; RN TO ASSESS/TEACH, DIE DESIGNER APPRENTICE/SOFTWARE QUALITY SPECIALIST TO OBSERVE/TEACH RELATED TO ALTERED CARDIOVASCULAR STATUS TO MINIMIZE COMPLICATIONS AND REDUCE HOSPITALIZATION. [code = CARDIOVASCULAR SYSTEM; RN TO ASSESS/TEACH, DIE DESIGNER APPRENTICE/SOFTWARE QUALITY SPECIALIST TO OBSERVE/TEACH RELATED TO ALTERED CARDIOVASCULAR STATUS TO MINIMIZE COMPLICATIONS AND REDUCE HOSPITALIZATION.] Future Scheduled Test HYPERTENSI ON MANAGEMENT; RN TO ASSESS AND TEACH, DIE DESIGNER APPRENTICE/SOFTWARE QUALITY SPECIALIST TO OBSERVE AND TEACH WARNING SIGNS AND SYMPTOMS TO AVOID HOSPITALIZATION. [code = HYPERTENSION MANAGEMENT; RN TO ASSESS AND TEACH, DIE DESIGNER APPRENTICE/SOFTWARE QUALITY SPECIALIST TO OBSERVE AND TEACH WARNING SIGNS AND SYMPTOMS TO AVOID HOSPITALIZATION.] Future Scheduled Test HEART FAIL URE MONITORING RN/SOFTWARE QUALITY SPECIALIST/DIE DESIGNER APPRENTICE TO MONITOR PATIENT FOR SIGNS AND SYMPTOMS OF HEART FAILURE EXACERBATION, MONITOR FOR ADHERENCE WITH MEDICATION AND HEART FAILURE MANAGEMENT REGIMEN. [code = HEART FAILURE MONITORING RN/SOFTWARE QUALITY SPECIALIST/DIE DESIGNER APPRENTICE TO MONITOR PATIENT FOR SIGNS AND SYMPTOMS OF HEART FAILURE EXACERBATION, MONITOR FOR ADHERENCE WITH MEDICATION AND HEART FAILURE MANAGEMENT REGIMEN.] Future Scheduled Test DIABETES M ONITORING RN/SOFTWARE QUALITY SPECIALIST/DIE DESIGNER APPRENTICE TO MONITOR BLOOD SUGAR LOG FOR BLOOD SUGAR READINGS THAT ARE BEING CHECKED BY PATIENT, CAREGIVER NEEDED FOR SIGNS AND SYMPTOMS OF HYPER/HYPOGLYCEMIA. PATIENT THERAPEUTIC BLOOD SUGAR PARAMETERS ARE 70 - 300. REPORT BLOOD SUGARS OUT OF RANGE TO PHYSICIAN. NURSE MAY PERFORM FINGER STICK BLOOD GLUCOSE NEEDED FOR SIGNS AND SYMPTOMS OF HYPO AND HYPERGLYCEMIA. RN/SOFTWARE QUALITY SPECIALIST/DIE DESIGNER APPRENTICE TO MONITOR ADHERENCE OF PATIENT/CAREGIVER PERFORMING DIABETIC FOOT CARE AND MAY PERFORM DIABETIC FOOT CARE PRN. RN/SOFTWARE QUALITY SPECIALIST/DIE DESIGNER APPRENTICE TO MONITOR FOR ADHERENCE TO DIABETIC SELF-CARE AND MANAGEMENT INCLUDING MEDICATIONS. [code = DIABETES MONITORING RN/SOFTWARE QUALITY SPECIALIST/DIE DESIGNER APPRENTICE TO MONITOR BLOOD SUGAR LOG FOR BLOOD SUGAR READINGS THAT ARE BEING CHECKED BY PATIENT, CAREGIVER NEEDED FOR SIGNS AND SYMPTOMS OF HYPER/HYPOGLYCEMIA. PATIENT THERAPEUTIC BLOOD SUGAR PARAMETERS ARE 70 - 300. REPORT BLOOD SUGARS OUT OF RANGE TO PHYSICIAN. NURSE MAY PERFORM FINGER STICK BLOOD GLUCOSE NEEDED FOR SIGNS AND SYMPTOMS OF HYPO AND HYPERGLYCEMIA. RN/SOFTWARE QUALITY SPECIALIST/DIE DESIGNER APPRENTICE TO MONITOR ADHERENCE OF PATIENT/CAREGIVER PERFORMING DIABETIC FOOT CARE AND MAY PERFORM DIABETIC FOOT CARE PRN. RN/SOFTWARE QUALITY SPECIALIST/DIE DESIGNER APPRENTICE TO MONITOR FOR ADHERENCE TO DIABETIC SELF-CARE AND MANAGEMENT INCLUDING MEDICATIONS.] Future Scheduled Test HYPOTENSIO N MANAGEMENT; RN TO ASSESS AND TEACH/ DIE DESIGNER APPRENTICE /SOFTWARE QUALITY SPECIALIST TO OBSERVE AND TEACH WARNING SIGNS AND SYMPTOMS TO AVOID HOSPITALIZATION. [code = HYPOTENSION MANAGEMENT; RN TO ASSESS AND TEACH/ DIE DESIGNER APPRENTICE /SOFTWARE QUALITY SPECIALIST TO OBSERVE AND TEACH WARNING SIGNS AND SYMPTOMS TO AVOID HOSPITALIZATION.] Future Scheduled Test ARRHYTHMIA MANAGEMENT; RN TO ASSESS AND TEACH, DIE DESIGNER APPRENTICE/SOFTWARE QUALITY SPECIALIST TO OBSERVE AND TEACH WARNING SIGNS AND SYMPTOMS TO AVOID HOSPITALIZATION. [code = ARRHYTHMIA MANAGEMENT; RN TO ASSESS AND TEACH, DIE DESIGNER APPRENTICE/SOFTWARE QUALITY SPECIALIST TO OBSERVE AND TEACH WARNING SIGNS AND SYMPTOMS TO AVOID HOSPITALIZATION.] Future Scheduled Test MEDICATION MANAGEMENT; RN/DIE DESIGNER APPRENTICE/SOFTWARE QUALITY SPECIALIST TO REVIEW MEDICATIONS FOR INTERACTIONS, EFFECTIVENESS OF DRUG THERAPY, AND SIGNS/SYMPTOMS OF ADVERSE REACTIONS. MAY INSTRUCT AND REINFORCE MEDICATION TEACHING RELATED TO THE USE OF MEDICATIONS, DOSAGE, FREQUENCY, PURPOSE, SIDE EFFECTS, AND TO REPORT COMPLICATIONS. [code = MEDICATION MANAGEMENT; RN/DIE DESIGNER APPRENTICE/SOFTWARE QUALITY SPECIALIST TO REVIEW MEDICATIONS FOR INTERACTIONS, EFFECTIVENESS [...] EVAL UATE, OBSERVE / ASSESS, AND MONITOR, EDUCATIONAL FUNDRAISING DIRECTOR TO OBSERVE AND MONITOR, PROVIDE SKILLED THERAPEUTIC INTERVENTION, ACTIVITY, EDUCATION, AND TRAINING TO ADDRESS GEN. WEAKNESS, POOR OVERALL ACTIVITY TOLERANCE, AND FUNCTIONAL LIMITATIONS IMPACTING SAFETY AND INDEPENDENCE. BED MOBILITY (PT/EDUCATIONAL FUNDRAISING DIRECTOR) PT/EDUCATIONAL FUNDRAISING DIRECTOR TO PROVIDE GAIT TRAINING FOR IMPROVED MOBILITY AND /OR TO NORMALIZE GAIT PATTERN THERAPEUTIC EXERCISES AND ESTABLISHING A HOME EXERCISE PROGRAM (PT/EDUCATIONAL FUNDRAISING DIRECTOR) PT/EDUCATIONAL FUNDRAISING DIRECTOR TO PROVIDE STAIR TRAINING PT / EDUCATIONAL FUNDRAISING DIRECTOR TO MONITOR AND EDUCATE ON OXYGEN SATURATION DURING ADLS/IADLS, NOTIFY PHYSICIAN AND/OR THE RN CLINICAL TENON MACHINE OPERATOR FOR PHYSICIAN NOTIFICATION AND IF O2 SATS BELOW PHYSICIAN ORDERED PARAMETERS AFTER 10 MIN OF REST PT / EDUCATIONAL FUNDRAISING DIRECTOR TO OBSERVE FOR EARLY SIGNS AND SYMPTOMS OF DEPRESSION OR DEPRESSION GETTING WORSE AND TO EDUCATE ON HOW TO FIND HELP. PT / EDUCATIONAL FUNDRAISING DIRECTOR MAY EDUCATE ON PAIN MANAGEMENT CLINICALLY INDICATED, INCLUDING NON-PHARMACOLOGICAL PAIN REDUCTION TECHNIQUES PT / EDUCATIONAL FUNDRAISING DIRECTOR TO MONITOR FOR HYPO/HYPERGLYCEMIA AND CONDUCT ROUTINE FOOT INSPECTIONS. RECORD PATIENT REPORTED BLOOD SUGAR LEVELS AND NOTIFY PHYSICIAN AND/OR THE RN CLINICAL TENON MACHINE OPERATOR FOR PHYSICIAN NOTIFICATION IF BLOOD SUGAR LEVELS ARE OUTSIDE ORDERED PARAMETERS. TEACH PATIENT/CAREGIVER ON DAILY FOOT INSPECTIONS PT / EDUCATIONAL FUNDRAISING DIRECTOR TO INSTRUCT PATIENT/CAREGIVER ON RISK FOR HOSPITALIZATION/EMERGENCY ROOM VISITS, TEACH SIGNS AND SYMPTOMS THAT PUT PATIENT AT RISK, WHEN TO NOTIFY NURSE/PHYSICIAN OF COMPLICATIONS/DECLINE, AND WHEN TO CALL 911. PT/EDUCATIONAL FUNDRAISING DIRECTOR TO EDUCATE ON ARTHRITIS SELF-MANAGEMENT PT / EDUCATIONAL FUNDRAISING DIRECTOR TO EDUCATE ON HEART FAILURE SELF-MANAGEMENT PT / EDUCATIONAL FUNDRAISING DIRECTOR TO EDUCATE ON HYPERTENSION SELF-MANAGEMENT PT TO ASSESS / EDUCATIONAL FUNDRAISING DIRECTOR TO MONITOR CARDIO/RESPIRATORY SYSTEM; AND NOTIFY THE PHYSICIAN AND/OR THE RN CLINICAL TENON MACHINE OPERATOR FOR PHYSICIAN NOTIFICATION FOR EARLY SIGNS AND SYMPTOMS OF EXACERBATION OR DETERIORATION. PT / EDUCATIONAL FUNDRAISING DIRECTOR TO EDUCATE ON ATRIAL FIBRILLATION SELF-MANAGEMENT. PT / EDUCATIONAL FUNDRAISING DIRECTOR TO EDUCATE ON PNEUMONIA / ASPIRATION PNEUMONIA SELF-MANAGEMENT. PT/EDUCATIONAL FUNDRAISING DIRECTOR TO IDENTIFY FALL RISK FACTORS; EDUCATE THE PATIENT/CAREGIVER ON WAYS TO REDUCE FALL RISK FACTORS AND ESTABLISH HOME EXERCISE PROGRAM TO MINIMIZE FALL RISK. MAY TEACH THE PATIENT FLOOR RECOVERY WHEN CLINICALLY APPROPRIATE [code = PT TO EVALUATE, OBSERVE / ASSESS, AND MONITOR, EDUCATIONAL FUNDRAISING DIRECTOR TO OBSERVE AND MONITOR, PROVIDE SKILLED THERAPEUTIC INTERVENTION, ACTIVITY, EDUCATION, AND TRAINING TO ADDRESS GEN. WEAKNESS, POOR OVERALL ACTIVITY TOLERANCE, AND FUNCTIONAL LIMITATIONS IMPACTING SAFETY AND INDEPENDENCE. BED MOBILITY (PT/EDUCATIONAL FUNDRAISING DIRECTOR) PT/EDUCATIONAL FUNDRAISING DIRECTOR TO PROVIDE GAIT TRAINING FOR IMPROVED MOBILITY AND /OR TO NORMALIZE GAIT PATTERN THERAPEUTIC EXERCISES AND ESTABLISHING A HOME EXERCISE PROGRAM (PT/EDUCATIONAL FUNDRAISING DIRECTOR) PT/EDUCATIONAL FUNDRAISING DIRECTOR TO PROVIDE STAIR TRAINING PT / EDUCATIONAL FUNDRAISING DIRECTOR TO MONITOR AND EDUCATE ON OXYGEN SATURATION DURING ADLS/IADLS, NOTIFY PHYSICIAN AND/OR THE RN CLINICAL TENON MACHINE OPERATOR FOR PHYSICIAN NOTIFICATION AND IF O2 SATS BELOW PHYSICIAN ORDERED PARAMETERS AFTER 10 MIN OF REST PT / EDUCATIONAL FUNDRAISING DIRECTOR TO OBSERVE FOR EARLY SIGNS AND SYMPTOMS OF DEPRESSION OR DEPRESSION GETTING WORSE AND TO EDUCATE ON HOW TO FIND HELP. PT / EDUCATIONAL FUNDRAISING DIRECTOR MAY EDUCATE ON PAIN MANAGEMENT CLINICALLY INDICATED, INCLUDING NON-PHARMACOLOGICAL PAIN REDUCTION TECHNIQUES PT / EDUCATIONAL FUNDRAISING DIRECTOR TO MONITOR FOR HYPO/HYPERGLYCEMIA AND CONDUCT ROUTINE FOOT INSPECTIONS. RECORD PATIENT REPORTED BLOOD SUGAR LEVELS AND NOTIFY PHYSICIAN AND/OR THE RN CLINICAL TENON MACHINE OPERATOR FOR PHYSICIAN NOTIFICATION IF BLOOD SUGAR LEVELS ARE OUTSIDE ORDERED PARAMETERS. TEACH PATIENT/CAREGIVER ON DAILY FOOT INSPECTIONS PT / EDUCATIONAL FUNDRAISING DIRECTOR TO INSTRUCT PATIENT/CAREGIVER ON RISK FOR HOSPITALIZATION/EMERGENCY ROOM VISITS, TEACH SIGNS AND SYMPTOMS THAT PUT PATIENT AT RISK, WHEN TO NOTIFY NURSE/PHYSICIAN OF COMPLICATIONS/DECLINE, AND WHEN TO CALL 911. PT/EDUCATIONAL FUNDRAISING DIRECTOR TO EDUCATE ON ARTHRITIS SELF-MANAGEMENT PT / EDUCATIONAL FUNDRAISING DIRECTOR TO EDUCATE ON HEART FAILURE SELF-MANAGEMENT PT / EDUCATIONAL FUNDRAISING DIRECTOR TO EDUCATE ON HYPERTENSION SELF-MANAGEMENT PT TO ASSESS / EDUCATIONAL FUNDRAISING DIRECTOR TO MONITOR CARDIO/RESPIRATORY SYSTEM; AND NOTIFY THE PHYSICIAN AND/OR THE RN CLINICAL TENON MACHINE OPERATOR FOR PHYSICIAN NOTIFICATION FOR EARLY SIGNS AND SYMPTOMS OF EXACERBATION OR DETERIORATION. PT / EDUCATIONAL FUNDRAISING DIRECTOR TO EDUCATE ON ATRIAL FIBRILLATION SELF-MANAGEMENT. PT / EDUCATIONAL FUNDRAISING DIRECTOR TO EDUCATE ON PNEUMONIA / ASPIRATION PNEUMONIA SELF-MANAGEMENT. PT/EDUCATIONAL FUNDRAISING DIRECTOR TO IDENTIFY FALL RISK FACTORS; EDUCATE THE PATIENT/CAREGIVER ON WAYS TO REDUCE FALL RISK FACTORS AND ESTABLISH HOME EXERCISE PROGRAM TO MINIMIZE FALL RISK. MAY TEACH THE PATIENT FLOOR RECOVERY WHEN CLINICALLY APPROPRIATE] Future Scheduled Test AGENCY MAY PERFORM A RESUMPTION OF CARE VISIT FOLLOWING ANY HOSPITAL ADMISSION. OT TO EVALUATE, OBSERVE / ASSESS, AND MONITOR, MARIANNE TO OBSERVE AND MONITOR, PROVIDE SKILLED THERAPEUTIC INTERVENTION, ACTIVITY, EDUCATION, AND TRAINING TO ADDRESS SAFETY AND INDEPENDENCE OF ADLS AND FUNCTIONAL TRANSFERS IN HOME ENVIRONMENT. ACTIVITIES OF DAILY LIVING (OT/MARIANNE) THERAPEUTIC EXERCISE (OT/MANUAL EQUIPMENT MECHANIC) ENERGY CONSERVATION/ACTIVITY DEMAND (OT/MARIANNE) OT/MANUAL EQUIPMENT MECHANIC TO MONITOR AND EDUCATE ON OXYGEN SATURATION DURING ADLS/IADLS, NOTIFY PHYSICIAN AND/OR THE RN CLINICAL TENON MACHINE OPERATOR FOR PHYSICIAN NOTIFICATION AND IF O2 SATS BELOW 90% AFTER 10 MIN OF REST. OT / MARIANNE TO IDENTIFY FALL RISK FACTORS; EDUCATE THE PATIENT/CAREGIVER ON WAYS TO REDUCE FALL RISK FACTORS AND ESTABLISH HOME EXERCISE PROGRAM TO MINIMIZE FALL RISK. MAY TEACH THE PATIENT FLOOR RECOVERY WHEN CLINICALLY APPROPRIATE. OT/MANUAL EQUIPMENT MECHANIC TO EDUCATE ON HYPERTENSION SELF-MANAGEMENT OT/MARIANNE TO EDUCATE ON ATRIAL FIBRILLATION SELF-MANAGEMENT. [code = AGENCY MAY PERFORM A RESUMPTION OF CARE VISIT FOLLOWING ANY HOSPITAL ADMISSION. OT TO EVALUATE, OBSERVE / ASSESS, AND MONITOR, MARIANNE TO OBSERVE AND MONITOR, PROVIDE SKILLED THERAPEUTIC INTERVENTION, ACTIVITY, EDUCATION, AND TRAINING TO ADDRESS SAFETY AND INDEPENDENCE OF ADLS AND FUNCTIONAL TRANSFERS IN HOME ENVIRONMENT. ACTIVITIES OF DAILY LIVING (OT/MARIANNE) THERAPEUTIC EXERCISE (OT/MARIANNE) ENERGY CONSERVATION/ACTIVITY DEMAND (OT/MARIANNE) OT/MARIANNE TO MONITOR AND EDUCATE ON OXYGEN SATURATION DURING ADLS/IADLS, NOTIFY PHYSICIAN AND/OR THE RN CLINICAL TENON MACHINE OPERATOR FOR PHYSICIAN NOTIFICATION AND IF O2 SATS BELOW 90% AFTER 10 MIN OF REST. OT / MANUAL EQUIPMENT MECHANIC TO IDENTIFY FALL RISK FACTORS; EDUCATE THE PATIENT/CAREGIVER ON WAYS TO REDUCE FALL RISK FACTORS AND ESTABLISH HOME EXERCISE PROGRAM TO MINIMIZE FALL RISK. MAY TEACH THE PATIENT FLOOR RECOVERY WHEN CLINICALLY APPROPRIATE. OT/MANUAL EQUIPMENT MECHANIC TO EDUCATE ON HYPERTENSION SELF-MANAGEMENT OT/MANUAL EQUIPMENT MECHANIC TO EDUCATE ON ATRIAL FIBRILLATION SELF-MANAGEMENT.] Goal [...] LIFE-STYLE CHANGES BY END OF EPISODE . Progress Notes Progress Notes <paragraph>[Visit Date: 2024 by MICHAEL MTZ LPN]:</paragraph><paragraph>PATIENT SEEEN FOR SKILLED NURSE VISIT. PATIENT ALERT AND COOPERATIVE. PATIENT DENIES PAIN. PATIENT NOTED TO HAVE INCREASED SHORTNESS OF BREATH AT REST UPON NURSE ARRIVAL. LUNG SOUNDS AUSCULTATED. EXPIRATIORY RHONCI NOTED TO ALL LOBES OF LEFT LUNG NOT CLEARING WITH COUGH. PATIENT REPORTS INCREASED COUGH WITH INCREASED YELLOW SPUTUM PRODUCTION. VS OBTAINED AND WNL. NO EDEMA OR SKIN ISSUES NOTED. PATIENT DENIES OBTAINING DAILY WEIGHTS. DISCUSSED WITH PATIENT TO GO TO EMERGENCY ROOM FOR EVAL. PATIENT AGREEABLE TO ER FOR EVALUATION. PATIENT CALLED PATIENT SISTER. PATIENT SISTER STATED WILL TAKE PATIENT TO [facility] ER FOR EVALUATION. CALL PLACED TO PHYSICIAN OFFICE UPDATING ON PATIENT CONDITION AND PATIENT GOING TO ER FOR EVALUATION. DISCUSSED WITH PATIENT TO CONTACT [facility] WITH QUESTIONA AND CONCERNS. PATIENT VERBALIZED UNDERSTANDING.</paragraph> Encounters Start Date/Time End Date/Time Encounter Type Admission Type Attending [facility] Care Facility Care Department Encounter ID Discharge Date Discharge Status Discharge Condition Discharge Reason Percent Goals Met 2025-02-07 00:00:00 2025-04-07 00:00:00 Outpatient NEW ADMISSION [facility] [id number] 19.05
--- OUTSIDE RECORDS SUMMARY | 2025-04-06 19:00 | XMS_ITS | Clinical Summary ---
Author Organization Unknown Care Team Providers Care Zipper Trimmer Hand Name Role Phone DIGNA STACEYBRIANNE, ESTRELLA Unavailable Unava dinora STOKES RN, FRANKIE Unavailable Unavailabl e SMITH FOOD SERVICE AIDE, MICHAEL Unavailable Unavailable KARI PT, DIDI Unavailable Unavailable NAT ACUPRESSURE THERAPIST, GAUDENCIO Unavailable Unavailabl e RADHA OT, ROLANDO Unavailable Unavailable Payers Payer Name Policy Type Policy Number Effective Date Expira tion Date MEDICARE.[id number] [id number] Problems Condition Name Condition Details Condition Category [...] 00 ATHSCL HEART DISEASE OF [place] CORONARY ARTERY W/O ANG PCTRS Active 02-07 [...] 00 TRACHEOSTOMY STATUS Active 02-07 00:00: 00 ACLS SPECIALIST (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 [code = SN 1WK9 PT 1WK1 OT EFFECTIVE 02/10/2025 RESPIRATORY SYSTEM MANAGEMENT; RN TO ASSESS AND TEACH, FOOD SERVICE AIDE/CELL INSPECTOR TO OBSERVE AND TEACH RELATED TO ALTERED RESPIRATORY STATUS TO MINIMIZE COMPLICATIONS AND REDUCE HOSPITALIZATION.] Future Scheduled Test TRACHEOSTO MY CARE MANAGEMENT; RN/FOOD SERVICE AIDE/CELL INSPECTOR TO INSTRUCT PATIENT/CAREGIVER ON CARE AND MANAGEMENT OF TRACHEOSTOMY. RN/ FOOD SERVICE AIDE/CELL INSPECTOR TO PROVIDE SKILLED TEACHING ON TRACH COLLAR SUCTIONING PRN WITH 14 FR SUCTION CATHETER PER PATIENT TRACH CARE WITH INNER CANNULA: REMOVE INNER CANNULA, CLEANSE WITH NORMAL SALINE AND OR STERILE WATER AND REINSERT NON-DISPOSABLE CANNULA SIZE OF INNER CANNULA 5 BROOKS [code = TRACHEOSTOMY CARE MANAGEMENT; RN/FOOD SERVICE AIDE/CELL INSPECTOR TO INSTRUCT PATIENT/CAREGIVER ON CARE AND MANAGEMENT OF TRACHEOSTOMY. RN/ FOOD SERVICE AIDE/CELL INSPECTOR TO PROVIDE SKILLED TEACHING ON TRACH COLLAR SUCTIONING PRN WITH 14 FR SUCTION CATHETER PER PATIENT TRACH CARE WITH INNER CANNULA: REMOVE INNER CANNULA, CLEANSE WITH NORMAL SALINE AND OR STERILE WATER AND REINSERT NON-DISPOSABLE CANNULA SIZE OF INNER CANNULA 5 BROOKS] Future Scheduled Test FALL REDUC TION MANAGEMENT; RN TO ASSESS AND OBSERVE, FOOD SERVICE AIDE/CELL INSPECTOR TO OBSERVE FALL RISK FACTORS AND EDUCATE PATIENT/CAREGIVER ON STRATEGIES TO MINIMIZE THE RISK OF FALLING. [code = FALL REDUCTION MANAGEMENT; RN TO ASSESS AND OBSERVE, FOOD SERVICE AIDE/CELL INSPECTOR TO OBSERVE FALL RISK FACTORS AND EDUCATE PATIENT/CAREGIVER ON STRATEGIES TO MINIMIZE THE RISK OF FALLING.] Future Scheduled Test ANEMIA MAN AGEMENT; RN TO ASSESS AND TEACH, CELL INSPECTOR/FOOD SERVICE AIDE TO OBSERVE AND TEACH AND PROVIDE EDUCATION ON ANEMIA. [code = ANEMIA MANAGEMENT; RN TO ASSESS AND TEACH, CELL INSPECTOR/FOOD SERVICE AIDE TO OBSERVE AND TEACH AND PROVIDE EDUCATION ON ANEMIA.] Future Scheduled Test RN TO OBSE RVE, ASSESS, EVALUATE, AND DEVELOP AN INDIVIDUALIZED PLAN OF CARE. AGENCY MAY ACCEPT ORDERS FROM CONSULTING PHYSICIANS RN TO OBSERVE AND ASSESS, FOOD SERVICE AIDE/CELL INSPECTOR TO OBSERVE FOR RISK FOR FALLS AND INSTRUCT IN FALL PREVENTION, HOME SAFETY, MEDICATION MANAGEMENT, INFECTION PREVENTION, AND NUTRITION MANAGEMENT. RN/FOOD SERVICE AIDE/CELL INSPECTOR NURSE MAY PERFORM O2 SATURATION LEVEL ON ADMISSION AND PRN FOR RN TO ASSESS/FOOD SERVICE AIDE TO OBSERVE PATIENT, WITH NOTIFICATION TO THE PHYSICIAN IF SATURATION IS 90% IN THE ABSENCE OF MORE SPECIFIC PARAMETERS FROM THE PHYSICIAN. AGENCY MAY PERFORM A RESUMPTION OF CARE VISIT FOLLOWING ANY HOSPITAL ADMISSION. RN/FOOD SERVICE AIDE/CELL INSPECTOR TO MONITOR CO-MORBID CONDITIONS LISTED ON THE PLAN OF CARE AND ANY NEW CONDITIONS THAT PRESENT THEMSELVES DURING THIS EPISODE TO IDENTIFY CHANGES AND INTERVENE TO MINIMIZE COMPLICATIONS. [code = RN TO OBSERVE, ASSESS, EVALUATE, AND DEVELOP AN INDIVIDUALIZED PLAN OF CARE. AGENCY MAY ACCEPT ORDERS FROM CONSULTING PHYSICIANS RN TO OBSERVE AND ASSESS, FOOD SERVICE AIDE/CELL INSPECTOR TO OBSERVE FOR RISK FOR FALLS AND INSTRUCT IN FALL PREVENTION, HOME SAFETY, MEDICATION MANAGEMENT, INFECTION PREVENTION, AND NUTRITION MANAGEMENT. RN/FOOD SERVICE AIDE/CELL INSPECTOR NURSE MAY PERFORM O2 SATURATION LEVEL ON ADMISSION AND PRN FOR RN TO ASSESS/FOOD SERVICE AIDE TO OBSERVE PATIENT, WITH NOTIFICATION TO THE PHYSICIAN IF SATURATION IS 90% IN THE ABSENCE OF MORE SPECIFIC PARAMETERS FROM THE PHYSICIAN. AGENCY MAY PERFORM A RESUMPTION OF CARE VISIT FOLLOWING ANY HOSPITAL ADMISSION. RN/FOOD SERVICE AIDE/CELL INSPECTOR TO MONITOR CO-MORBID CONDITIONS LISTED ON THE PLAN OF CARE AND ANY NEW CONDITIONS THAT PRESENT THEMSELVES DURING THIS EPISODE TO IDENTIFY CHANGES AND INTERVENE TO MINIMIZE COMPLICATIONS.] Future Scheduled Test PAIN MANAG EMENT; RN TO ASSESS AND TEACH, CELL INSPECTOR/FOOD SERVICE AIDE TO OBSERVE AND TEACH AND PROVIDE EDUCATION ON PAIN MANAGEMENT TECHNIQUES. [code = PAIN MANAGEMENT; RN TO ASSESS AND TEACH, CELL INSPECTOR/FOOD SERVICE AIDE TO OBSERVE AND TEACH AND PROVIDE EDUCATION ON PAIN MANAGEMENT TECHNIQUES.] Future Scheduled Test RISK FOR H OSPITALIZATION; RN TO ASSESS/TEACH, CELL INSPECTOR/FOOD SERVICE AIDE TO OBSERVE/TEACH PATIENT/CAREGIVER ON RISK FOR HOSPITALIZATION/EMERGENCY ROOM VISITS, TEACH SIGNS AND SYMPTOMS THAT PUT PATIENT AT RISK, WHEN TO NOTIFY NURSE/PHYSICIAN OF COMPLICATIONS/DECLINE, AND WHEN TO CALL 911. [code = RISK FOR HOSPITALIZATION; RN TO ASSESS/TEACH, CELL INSPECTOR/FOOD SERVICE AIDE TO OBSERVE/TEACH PATIENT/CAREGIVER ON RISK FOR HOSPITALIZATION/EMERGENCY ROOM VISITS, TEACH SIGNS AND SYMPTOMS THAT PUT PATIENT AT RISK, WHEN TO NOTIFY NURSE/PHYSICIAN OF COMPLICATIONS/DECLINE, AND WHEN TO CALL 911.] Future Scheduled Test CARDIOVASC ULAR SYSTEM; RN TO ASSESS/TEACH, FOOD SERVICE AIDE/CELL INSPECTOR TO OBSERVE/TEACH RELATED TO ALTERED CARDIOVASCULAR STATUS TO MINIMIZE COMPLICATIONS AND REDUCE HOSPITALIZATION. [code = CARDIOVASCULAR SYSTEM; RN TO ASSESS/TEACH, FOOD SERVICE AIDE/CELL INSPECTOR TO OBSERVE/TEACH RELATED TO ALTERED CARDIOVASCULAR STATUS TO MINIMIZE COMPLICATIONS AND REDUCE HOSPITALIZATION.] Future Scheduled Test HYPERTENSI ON MANAGEMENT; RN TO ASSESS AND TEACH, FOOD SERVICE AIDE/CELL INSPECTOR TO OBSERVE AND TEACH WARNING SIGNS AND SYMPTOMS TO AVOID HOSPITALIZATION. [code = HYPERTENSION MANAGEMENT; RN TO ASSESS AND TEACH, FOOD SERVICE AIDE/CELL INSPECTOR TO OBSERVE AND TEACH WARNING SIGNS AND SYMPTOMS TO AVOID HOSPITALIZATION.] Future Scheduled Test HEART FAIL URE MONITORING RN/CELL INSPECTOR/FOOD SERVICE AIDE TO MONITOR PATIENT FOR SIGNS AND SYMPTOMS OF HEART FAILURE EXACERBATION, MONITOR FOR ADHERENCE WITH MEDICATION AND HEART FAILURE MANAGEMENT REGIMEN. [code = HEART FAILURE MONITORING RN/CELL INSPECTOR/FOOD SERVICE AIDE TO MONITOR PATIENT FOR SIGNS AND SYMPTOMS OF HEART FAILURE EXACERBATION, MONITOR FOR ADHERENCE WITH MEDICATION AND HEART FAILURE MANAGEMENT REGIMEN.] Future Scheduled Test DIABETES M ONITORING RN/CELL INSPECTOR/FOOD SERVICE AIDE TO MONITOR BLOOD SUGAR LOG FOR BLOOD SUGAR READINGS THAT ARE BEING CHECKED BY PATIENT, CAREGIVER NEEDED FOR SIGNS AND SYMPTOMS OF HYPER/HYPOGLYCEMIA. PATIENT THERAPEUTIC BLOOD SUGAR PARAMETERS ARE 70 - 300. REPORT BLOOD SUGARS OUT OF RANGE TO PHYSICIAN. NURSE MAY PERFORM FINGER STICK BLOOD GLUCOSE NEEDED FOR SIGNS AND SYMPTOMS OF HYPO AND HYPERGLYCEMIA. RN/CELL INSPECTOR/FOOD SERVICE AIDE TO MONITOR ADHERENCE OF PATIENT/CAREGIVER PERFORMING DIABETIC FOOT CARE AND MAY PERFORM DIABETIC FOOT CARE PRN. RN/CELL INSPECTOR/FOOD SERVICE AIDE TO MONITOR FOR ADHERENCE TO DIABETIC SELF-CARE AND MANAGEMENT INCLUDING MEDICATIONS. [code = DIABETES MONITORING RN/CELL INSPECTOR/FOOD SERVICE AIDE TO MONITOR BLOOD SUGAR LOG FOR BLOOD SUGAR READINGS THAT ARE BEING CHECKED BY PATIENT, CAREGIVER NEEDED FOR SIGNS AND SYMPTOMS OF HYPER/HYPOGLYCEMIA. PATIENT THERAPEUTIC BLOOD SUGAR PARAMETERS ARE 70 - 300. REPORT BLOOD SUGARS OUT OF RANGE TO PHYSICIAN. NURSE MAY PERFORM FINGER STICK BLOOD GLUCOSE NEEDED FOR SIGNS AND SYMPTOMS OF HYPO AND HYPERGLYCEMIA. RN/CELL INSPECTOR/FOOD SERVICE AIDE TO MONITOR ADHERENCE OF PATIENT/CAREGIVER PERFORMING DIABETIC FOOT CARE AND MAY PERFORM DIABETIC FOOT CARE PRN. RN/CELL INSPECTOR/FOOD SERVICE AIDE TO MONITOR FOR ADHERENCE TO DIABETIC SELF-CARE AND MANAGEMENT INCLUDING MEDICATIONS.] Future Scheduled Test HYPOTENSIO N MANAGEMENT; RN TO ASSESS AND TEACH/ FOOD SERVICE AIDE /CELL INSPECTOR TO OBSERVE AND TEACH WARNING SIGNS AND SYMPTOMS TO AVOID HOSPITALIZATION. [code = HYPOTENSION MANAGEMENT; RN TO ASSESS AND TEACH/ FOOD SERVICE AIDE /CELL INSPECTOR TO OBSERVE AND TEACH WARNING SIGNS AND SYMPTOMS TO AVOID HOSPITALIZATION.] Future Scheduled Test ARRHYTHMIA MANAGEMENT; RN TO ASSESS AND TEACH, FOOD SERVICE AIDE/CELL INSPECTOR TO OBSERVE AND TEACH WARNING SIGNS AND SYMPTOMS TO AVOID HOSPITALIZATION. [code = ARRHYTHMIA MANAGEMENT; RN TO ASSESS AND TEACH, FOOD SERVICE AIDE/CELL INSPECTOR TO OBSERVE AND TEACH WARNING SIGNS AND SYMPTOMS TO AVOID HOSPITALIZATION.] Future Scheduled Test MEDICATION MANAGEMENT; RN/FOOD SERVICE AIDE/CELL INSPECTOR TO REVIEW MEDICATIONS FOR INTERACTIONS, EFFECTIVENESS OF DRUG THERAPY, AND SIGNS/SYMPTOMS OF ADVERSE REACTIONS. MAY INSTRUCT AND REINFORCE MEDICATION TEACHING RELATED TO THE USE OF MEDICATIONS, DOSAGE, FREQUENCY, PURPOSE, SIDE EFFECTS, AND TO REPORT COMPLICATIONS. [code = MEDICATION MANAGEMENT; RN/FOOD SERVICE AIDE/CELL INSPECTOR TO REVIEW MEDICATIONS FOR INTERACTIONS, EFFECTIVENESS [...] EVAL UATE, OBSERVE / ASSESS, AND MONITOR, ACUPRESSURE THERAPIST TO OBSERVE AND MONITOR, PROVIDE SKILLED THERAPEUTIC INTERVENTION, ACTIVITY, EDUCATION, AND TRAINING TO ADDRESS GEN. WEAKNESS, POOR OVERALL ACTIVITY TOLERANCE, AND FUNCTIONAL LIMITATIONS IMPACTING SAFETY AND INDEPENDENCE. BED MOBILITY (PT/ACUPRESSURE THERAPIST) PT/ACUPRESSURE THERAPIST TO PROVIDE GAIT TRAINING FOR IMPROVED MOBILITY AND /OR TO NORMALIZE GAIT PATTERN THERAPEUTIC EXERCISES AND ESTABLISHING A HOME EXERCISE PROGRAM (PT/ACUPRESSURE THERAPIST) PT/ACUPRESSURE THERAPIST TO PROVIDE STAIR TRAINING PT / ACUPRESSURE THERAPIST TO MONITOR AND EDUCATE ON OXYGEN SATURATION DURING ADLS/IADLS, NOTIFY PHYSICIAN AND/OR THE RN CLINICAL ORAL SURGEON FOR PHYSICIAN NOTIFICATION AND IF O2 SATS BELOW PHYSICIAN ORDERED PARAMETERS AFTER 10 MIN OF REST PT / ACUPRESSURE THERAPIST TO OBSERVE FOR EARLY SIGNS AND SYMPTOMS OF DEPRESSION OR DEPRESSION GETTING WORSE AND TO EDUCATE ON HOW TO FIND HELP. PT / ACUPRESSURE THERAPIST MAY EDUCATE ON PAIN MANAGEMENT CLINICALLY INDICATED, INCLUDING NON-PHARMACOLOGICAL PAIN REDUCTION TECHNIQUES PT / ACUPRESSURE THERAPIST TO MONITOR FOR HYPO/HYPERGLYCEMIA AND CONDUCT ROUTINE FOOT INSPECTIONS. RECORD PATIENT REPORTED BLOOD SUGAR LEVELS AND NOTIFY PHYSICIAN AND/OR THE RN CLINICAL ORAL SURGEON FOR PHYSICIAN NOTIFICATION IF BLOOD SUGAR LEVELS ARE OUTSIDE ORDERED PARAMETERS. TEACH PATIENT/CAREGIVER ON DAILY FOOT INSPECTIONS PT / ACUPRESSURE THERAPIST TO INSTRUCT PATIENT/CAREGIVER ON RISK FOR HOSPITALIZATION/EMERGENCY ROOM VISITS, TEACH SIGNS AND SYMPTOMS THAT PUT PATIENT AT RISK, WHEN TO NOTIFY NURSE/PHYSICIAN OF COMPLICATIONS/DECLINE, AND WHEN TO CALL 911. PT/ACUPRESSURE THERAPIST TO EDUCATE ON ARTHRITIS SELF-MANAGEMENT PT / ACUPRESSURE THERAPIST TO EDUCATE ON HEART FAILURE SELF-MANAGEMENT PT / ACUPRESSURE THERAPIST TO EDUCATE ON HYPERTENSION SELF-MANAGEMENT PT TO ASSESS / ACUPRESSURE THERAPIST TO MONITOR CARDIO/RESPIRATORY SYSTEM; AND NOTIFY THE PHYSICIAN AND/OR THE RN CLINICAL ORAL SURGEON FOR PHYSICIAN NOTIFICATION FOR EARLY SIGNS AND SYMPTOMS OF EXACERBATION OR DETERIORATION. PT / ACUPRESSURE THERAPIST TO EDUCATE ON ATRIAL FIBRILLATION SELF-MANAGEMENT. PT / ACUPRESSURE THERAPIST TO EDUCATE ON PNEUMONIA / ASPIRATION PNEUMONIA SELF-MANAGEMENT. PT/ACUPRESSURE THERAPIST TO IDENTIFY FALL RISK FACTORS; EDUCATE THE PATIENT/CAREGIVER ON WAYS TO REDUCE FALL RISK FACTORS AND ESTABLISH HOME EXERCISE PROGRAM TO MINIMIZE FALL RISK. MAY TEACH THE PATIENT FLOOR RECOVERY WHEN CLINICALLY APPROPRIATE [code = PT TO EVALUATE, OBSERVE / ASSESS, AND MONITOR, ACUPRESSURE THERAPIST TO OBSERVE AND MONITOR, PROVIDE SKILLED THERAPEUTIC INTERVENTION, ACTIVITY, EDUCATION, AND TRAINING TO ADDRESS GEN. WEAKNESS, POOR OVERALL ACTIVITY TOLERANCE, AND FUNCTIONAL LIMITATIONS IMPACTING SAFETY AND INDEPENDENCE. BED MOBILITY (PT/ACUPRESSURE THERAPIST) PT/ACUPRESSURE THERAPIST TO PROVIDE GAIT TRAINING FOR IMPROVED MOBILITY AND /OR TO NORMALIZE GAIT PATTERN THERAPEUTIC EXERCISES AND ESTABLISHING A HOME EXERCISE PROGRAM (PT/ACUPRESSURE THERAPIST) PT/ACUPRESSURE THERAPIST TO PROVIDE STAIR TRAINING PT / ACUPRESSURE THERAPIST TO MONITOR AND EDUCATE ON OXYGEN SATURATION DURING ADLS/IADLS, NOTIFY PHYSICIAN AND/OR THE RN CLINICAL ORAL SURGEON FOR PHYSICIAN NOTIFICATION AND IF O2 SATS BELOW PHYSICIAN ORDERED PARAMETERS AFTER 10 MIN OF REST PT / ACUPRESSURE THERAPIST TO OBSERVE FOR EARLY SIGNS AND SYMPTOMS OF DEPRESSION OR DEPRESSION GETTING WORSE AND TO EDUCATE ON HOW TO FIND HELP. PT / ACUPRESSURE THERAPIST MAY EDUCATE ON PAIN MANAGEMENT CLINICALLY INDICATED, INCLUDING NON-PHARMACOLOGICAL PAIN REDUCTION TECHNIQUES PT / ACUPRESSURE THERAPIST TO MONITOR FOR HYPO/HYPERGLYCEMIA AND CONDUCT ROUTINE FOOT INSPECTIONS. RECORD PATIENT REPORTED BLOOD SUGAR LEVELS AND NOTIFY PHYSICIAN AND/OR THE RN CLINICAL ORAL SURGEON FOR PHYSICIAN NOTIFICATION IF BLOOD SUGAR LEVELS ARE OUTSIDE ORDERED PARAMETERS. TEACH PATIENT/CAREGIVER ON DAILY FOOT INSPECTIONS PT / ACUPRESSURE THERAPIST TO INSTRUCT PATIENT/CAREGIVER ON RISK FOR HOSPITALIZATION/EMERGENCY ROOM VISITS, TEACH SIGNS AND SYMPTOMS THAT PUT PATIENT AT RISK, WHEN TO NOTIFY NURSE/PHYSICIAN OF COMPLICATIONS/DECLINE, AND WHEN TO CALL 911. PT/ACUPRESSURE THERAPIST TO EDUCATE ON ARTHRITIS SELF-MANAGEMENT PT / ACUPRESSURE THERAPIST TO EDUCATE ON HEART FAILURE SELF-MANAGEMENT PT / ACUPRESSURE THERAPIST TO EDUCATE ON HYPERTENSION SELF-MANAGEMENT PT TO ASSESS / ACUPRESSURE THERAPIST TO MONITOR CARDIO/RESPIRATORY SYSTEM; AND NOTIFY THE PHYSICIAN AND/OR THE RN CLINICAL ORAL SURGEON FOR PHYSICIAN NOTIFICATION FOR EARLY SIGNS AND SYMPTOMS OF EXACERBATION OR DETERIORATION. PT / ACUPRESSURE THERAPIST TO EDUCATE ON ATRIAL FIBRILLATION SELF-MANAGEMENT. PT / ACUPRESSURE THERAPIST TO EDUCATE ON PNEUMONIA / ASPIRATION PNEUMONIA SELF-MANAGEMENT. PT/ACUPRESSURE THERAPIST TO IDENTIFY FALL RISK FACTORS; EDUCATE THE [...] ACTIVITIES OF DAILY LIVING (OT/MARIANNE) THERAPEUTIC EXERCISE (OT/LODGE ATTENDANT) ENERGY CONSERVATION/ACTIVITY DEMAND (OT/MARIANNE) OT/LODGE ATTENDANT TO MONITOR AND EDUCATE ON OXYGEN SATURATION DURING ADLS/IADLS, NOTIFY PHYSICIAN AND/OR THE RN CLINICAL ORAL SURGEON FOR PHYSICIAN NOTIFICATION AND IF O2 SATS BELOW 90% AFTER 10 MIN OF REST. OT / MARIANNE TO IDENTIFY FALL RISK FACTORS; EDUCATE THE PATIENT/CAREGIVER ON WAYS TO REDUCE FALL RISK FACTORS AND ESTABLISH HOME EXERCISE PROGRAM TO MINIMIZE FALL RISK. MAY TEACH THE PATIENT FLOOR RECOVERY WHEN CLINICALLY APPROPRIATE. OT/LODGE ATTENDANT TO EDUCATE ON HYPERTENSION SELF-MANAGEMENT OT/MARIANNE TO [...] ADLS/IADLS, NOTIFY PHYSICIAN AND/OR THE RN CLINICAL ORAL SURGEON FOR PHYSICIAN NOTIFICATION AND IF O2 SATS BELOW 90% AFTER 10 MIN OF REST. OT / LODGE ATTENDANT TO IDENTIFY FALL RISK FACTORS; EDUCATE THE PATIENT/CAREGIVER ON WAYS TO REDUCE FALL RISK FACTORS AND ESTABLISH HOME EXERCISE PROGRAM TO MINIMIZE FALL RISK. MAY TEACH THE PATIENT FLOOR RECOVERY WHEN CLINICALLY APPROPRIATE. OT/LODGE ATTENDANT TO EDUCATE ON HYPERTENSION SELF-MANAGEMENT OT/LODGE ATTENDANT TO EDUCATE ON ATRIAL FIBRILLATION SELF-MANAGEMENT.] Goal [...] PATIENT SISTER STATED WILL TAKE PATIENT TO [facility] ER FOR EVALUATION. CALL PLACED TO PHYSICIAN OFFICE UPDATING ON PATIENT CONDITION AND PATIENT GOING TO ER FOR EVALUATION. DISCUSSED WITH PATIENT TO CONTACT [facility] WITH QUESTIONA AND CONCERNS. PATIENT VERBALIZED UNDERSTANDING.</paragraph> Encounters Start Date/Time End Date/Time Encounter Type Admission Type Attending [facility] Care Facility Care Department Encounter ID Discharge Date Discharge Status Discharge Condition Discharge Reason Percent Goals Met 2025-02-07 00:00:00 2025-04-07 00:00:00 Outpatient NEW ADMISSION FRANKIE STOKES [facility] [id number] 19.05
--- OUTSIDE RECORDS SUMMARY | 2025-04-06 19:00 | XMS_ITS | Clinical Summary ---
Author Organization Unknown Care Team Providers Care Director Facilities Maintenance Name Role Phone DIGNA STACEYBRIANNE, ESTRELLA Unavailable Unava dinora STOKES RN, FRANKIE Unavailable Unavailabl e SMITH SUPERVISOR METER REPAIR SHOP, MICHAEL Unavailable Unavailable KARI PT, DIDI Unavailable Unavailable NAT COUNTERINTELLIGENCE AGENT, GAUDENCIO Unavailable Unavailabl e RADHA OT, ROLANDO Unavailable Unavailable Payers Payer Name Policy Type Policy Number Effective Date Expira tion Date MEDICARE.[facility] [id number] Problems Condition Name Condition Details Condition Category [...] 02-07 00:00: 00 ATHSCL HEART DISEASE OF [place] CORONARY ARTERY W/O ANG PCTRS Active 02-07 [...] 00 TRACHEOSTOMY STATUS Active 02-07 00:00: 00 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 [code = SN 1WK9 PT 1WK1 OT EFFECTIVE 02/10/2025 RESPIRATORY SYSTEM MANAGEMENT; RN TO ASSESS AND TEACH, SUPERVISOR METER REPAIR SHOP/REPOSSESSOR TO OBSERVE AND TEACH RELATED TO ALTERED RESPIRATORY STATUS TO MINIMIZE COMPLICATIONS AND REDUCE HOSPITALIZATION.] Future Scheduled Test TRACHEOSTO MY CARE MANAGEMENT; RN/SUPERVISOR METER REPAIR SHOP/REPOSSESSOR TO INSTRUCT PATIENT/CAREGIVER ON CARE AND MANAGEMENT OF TRACHEOSTOMY. RN/ SUPERVISOR METER REPAIR SHOP/REPOSSESSOR TO PROVIDE SKILLED TEACHING ON TRACH COLLAR SUCTIONING PRN WITH 14 FR SUCTION CATHETER PER PATIENT TRACH CARE WITH INNER CANNULA: REMOVE INNER CANNULA, CLEANSE WITH NORMAL SALINE AND OR STERILE WATER AND REINSERT NON-DISPOSABLE CANNULA SIZE OF INNER CANNULA 5 BROOKS [code = TRACHEOSTOMY CARE MANAGEMENT; RN/SUPERVISOR METER REPAIR SHOP/REPOSSESSOR TO INSTRUCT PATIENT/CAREGIVER ON CARE AND MANAGEMENT OF TRACHEOSTOMY. RN/ SUPERVISOR METER REPAIR SHOP/REPOSSESSOR TO PROVIDE SKILLED TEACHING ON TRACH COLLAR SUCTIONING PRN WITH 14 FR SUCTION CATHETER PER PATIENT TRACH CARE WITH INNER CANNULA: REMOVE INNER CANNULA, CLEANSE WITH NORMAL SALINE AND OR STERILE WATER AND REINSERT NON-DISPOSABLE CANNULA SIZE OF INNER CANNULA 5 BROOKS] Future Scheduled Test FALL REDUC TION MANAGEMENT; RN TO ASSESS AND OBSERVE, SUPERVISOR METER REPAIR SHOP/REPOSSESSOR TO OBSERVE FALL RISK FACTORS AND EDUCATE PATIENT/CAREGIVER ON STRATEGIES TO MINIMIZE THE RISK OF FALLING. [code = FALL REDUCTION MANAGEMENT; RN TO ASSESS AND OBSERVE, SUPERVISOR METER REPAIR SHOP/REPOSSESSOR TO OBSERVE FALL RISK FACTORS AND EDUCATE PATIENT/CAREGIVER ON STRATEGIES TO MINIMIZE THE RISK OF FALLING.] Future Scheduled Test ANEMIA MAN AGEMENT; RN TO ASSESS AND TEACH, REPOSSESSOR/SUPERVISOR METER REPAIR SHOP TO OBSERVE AND TEACH AND PROVIDE EDUCATION ON ANEMIA. [code = ANEMIA MANAGEMENT; RN TO ASSESS AND TEACH, REPOSSESSOR/SUPERVISOR METER REPAIR SHOP TO OBSERVE AND TEACH AND PROVIDE EDUCATION ON ANEMIA.] Future Scheduled Test RN TO OBSE RVE, ASSESS, EVALUATE, AND DEVELOP AN INDIVIDUALIZED PLAN OF CARE. AGENCY MAY ACCEPT ORDERS FROM CONSULTING PHYSICIANS RN TO OBSERVE AND ASSESS, SUPERVISOR METER REPAIR SHOP/REPOSSESSOR TO OBSERVE FOR RISK FOR FALLS AND INSTRUCT IN FALL PREVENTION, HOME SAFETY, MEDICATION MANAGEMENT, INFECTION PREVENTION, AND NUTRITION MANAGEMENT. RN/SUPERVISOR METER REPAIR SHOP/REPOSSESSOR NURSE MAY PERFORM O2 SATURATION LEVEL ON ADMISSION AND PRN FOR RN TO ASSESS/SUPERVISOR METER REPAIR SHOP TO OBSERVE PATIENT, WITH NOTIFICATION TO THE PHYSICIAN IF SATURATION IS 90% IN THE ABSENCE OF MORE SPECIFIC PARAMETERS FROM THE PHYSICIAN. AGENCY MAY PERFORM A RESUMPTION OF CARE VISIT FOLLOWING ANY HOSPITAL ADMISSION. RN/SUPERVISOR METER REPAIR SHOP/REPOSSESSOR TO MONITOR CO-MORBID CONDITIONS LISTED ON THE PLAN OF CARE AND ANY NEW CONDITIONS THAT PRESENT THEMSELVES DURING THIS EPISODE TO IDENTIFY CHANGES AND INTERVENE TO MINIMIZE COMPLICATIONS. [code = RN TO OBSERVE, ASSESS, EVALUATE, AND DEVELOP AN INDIVIDUALIZED PLAN OF CARE. AGENCY MAY ACCEPT ORDERS FROM CONSULTING PHYSICIANS RN TO OBSERVE AND ASSESS, SUPERVISOR METER REPAIR SHOP/REPOSSESSOR TO OBSERVE FOR RISK FOR FALLS AND INSTRUCT IN FALL PREVENTION, HOME SAFETY, MEDICATION MANAGEMENT, INFECTION PREVENTION, AND NUTRITION MANAGEMENT. RN/SUPERVISOR METER REPAIR SHOP/REPOSSESSOR NURSE MAY PERFORM O2 SATURATION LEVEL ON ADMISSION AND PRN FOR RN TO ASSESS/SUPERVISOR METER REPAIR SHOP TO OBSERVE PATIENT, WITH NOTIFICATION TO THE PHYSICIAN IF SATURATION IS 90% IN THE ABSENCE OF MORE SPECIFIC PARAMETERS FROM THE PHYSICIAN. AGENCY MAY PERFORM A RESUMPTION OF CARE VISIT FOLLOWING ANY HOSPITAL ADMISSION. RN/SUPERVISOR METER REPAIR SHOP/REPOSSESSOR TO MONITOR CO-MORBID CONDITIONS LISTED ON THE PLAN OF CARE AND ANY NEW CONDITIONS THAT PRESENT THEMSELVES DURING THIS EPISODE TO IDENTIFY CHANGES AND INTERVENE TO MINIMIZE COMPLICATIONS.] Future Scheduled Test PAIN MANAG EMENT; RN TO ASSESS AND TEACH, REPOSSESSOR/SUPERVISOR METER REPAIR SHOP TO OBSERVE AND TEACH AND PROVIDE EDUCATION ON PAIN MANAGEMENT TECHNIQUES. [code = PAIN MANAGEMENT; RN TO ASSESS AND TEACH, REPOSSESSOR/SUPERVISOR METER REPAIR SHOP TO OBSERVE AND TEACH AND PROVIDE EDUCATION ON PAIN MANAGEMENT TECHNIQUES.] Future Scheduled Test RISK FOR H OSPITALIZATION; RN TO ASSESS/TEACH, REPOSSESSOR/SUPERVISOR METER REPAIR SHOP TO OBSERVE/TEACH PATIENT/CAREGIVER ON RISK FOR HOSPITALIZATION/EMERGENCY ROOM VISITS, TEACH SIGNS AND SYMPTOMS THAT PUT PATIENT AT RISK, WHEN TO NOTIFY NURSE/PHYSICIAN OF COMPLICATIONS/DECLINE, AND WHEN TO CALL 911. [code = RISK FOR HOSPITALIZATION; RN TO ASSESS/TEACH, REPOSSESSOR/SUPERVISOR METER REPAIR SHOP TO OBSERVE/TEACH PATIENT/CAREGIVER ON RISK FOR HOSPITALIZATION/EMERGENCY ROOM VISITS, TEACH SIGNS AND SYMPTOMS THAT PUT PATIENT AT RISK, WHEN TO NOTIFY NURSE/PHYSICIAN OF COMPLICATIONS/DECLINE, AND WHEN TO CALL 911.] Future Scheduled Test CARDIOVASC ULAR SYSTEM; RN TO ASSESS/TEACH, SUPERVISOR METER REPAIR SHOP/REPOSSESSOR TO OBSERVE/TEACH RELATED TO ALTERED CARDIOVASCULAR STATUS TO MINIMIZE COMPLICATIONS AND REDUCE HOSPITALIZATION. [code = CARDIOVASCULAR SYSTEM; RN TO ASSESS/TEACH, SUPERVISOR METER REPAIR SHOP/REPOSSESSOR TO OBSERVE/TEACH RELATED TO ALTERED CARDIOVASCULAR STATUS TO MINIMIZE COMPLICATIONS AND REDUCE HOSPITALIZATION.] Future Scheduled Test HYPERTENSI ON MANAGEMENT; RN TO ASSESS AND TEACH, SUPERVISOR METER REPAIR SHOP/REPOSSESSOR TO OBSERVE AND TEACH WARNING SIGNS AND SYMPTOMS TO AVOID HOSPITALIZATION. [code = HYPERTENSION MANAGEMENT; RN TO ASSESS AND TEACH, SUPERVISOR METER REPAIR SHOP/REPOSSESSOR TO OBSERVE AND TEACH WARNING SIGNS AND SYMPTOMS TO AVOID HOSPITALIZATION.] Future Scheduled Test HEART FAIL URE MONITORING RN/REPOSSESSOR/SUPERVISOR METER REPAIR SHOP TO MONITOR PATIENT FOR SIGNS AND SYMPTOMS OF HEART FAILURE EXACERBATION, MONITOR FOR ADHERENCE WITH MEDICATION AND HEART FAILURE MANAGEMENT REGIMEN. [code = HEART FAILURE MONITORING RN/REPOSSESSOR/SUPERVISOR METER REPAIR SHOP TO MONITOR PATIENT FOR SIGNS AND SYMPTOMS OF HEART FAILURE EXACERBATION, MONITOR FOR ADHERENCE WITH MEDICATION AND HEART FAILURE MANAGEMENT REGIMEN.] Future Scheduled Test DIABETES M ONITORING RN/REPOSSESSOR/SUPERVISOR METER REPAIR SHOP TO MONITOR BLOOD SUGAR LOG FOR BLOOD SUGAR READINGS THAT ARE BEING CHECKED BY PATIENT, CAREGIVER NEEDED FOR SIGNS AND SYMPTOMS OF HYPER/HYPOGLYCEMIA. PATIENT THERAPEUTIC BLOOD SUGAR PARAMETERS ARE 70 - 300. REPORT BLOOD SUGARS OUT OF RANGE TO PHYSICIAN. NURSE MAY PERFORM FINGER STICK BLOOD GLUCOSE NEEDED FOR SIGNS AND SYMPTOMS OF HYPO AND HYPERGLYCEMIA. RN/REPOSSESSOR/SUPERVISOR METER REPAIR SHOP TO MONITOR ADHERENCE OF PATIENT/CAREGIVER PERFORMING DIABETIC FOOT CARE AND MAY PERFORM DIABETIC FOOT CARE PRN. RN/REPOSSESSOR/SUPERVISOR METER REPAIR SHOP TO MONITOR FOR ADHERENCE TO DIABETIC SELF-CARE AND MANAGEMENT INCLUDING MEDICATIONS. [code = DIABETES MONITORING RN/REPOSSESSOR/SUPERVISOR METER REPAIR SHOP TO MONITOR BLOOD SUGAR LOG FOR BLOOD SUGAR READINGS THAT ARE BEING CHECKED BY PATIENT, CAREGIVER NEEDED FOR SIGNS AND SYMPTOMS OF HYPER/HYPOGLYCEMIA. PATIENT THERAPEUTIC BLOOD SUGAR PARAMETERS ARE 70 - 300. REPORT BLOOD SUGARS OUT OF RANGE TO PHYSICIAN. NURSE MAY PERFORM FINGER STICK BLOOD GLUCOSE NEEDED FOR SIGNS AND SYMPTOMS OF HYPO AND HYPERGLYCEMIA. RN/REPOSSESSOR/SUPERVISOR METER REPAIR SHOP TO MONITOR ADHERENCE OF PATIENT/CAREGIVER PERFORMING DIABETIC FOOT CARE AND MAY PERFORM DIABETIC FOOT CARE PRN. RN/REPOSSESSOR/SUPERVISOR METER REPAIR SHOP TO MONITOR FOR ADHERENCE TO DIABETIC SELF-CARE AND MANAGEMENT INCLUDING MEDICATIONS.] Future Scheduled Test HYPOTENSIO N MANAGEMENT; RN TO ASSESS AND TEACH/ SUPERVISOR METER REPAIR SHOP /REPOSSESSOR TO OBSERVE AND TEACH WARNING SIGNS AND SYMPTOMS TO AVOID HOSPITALIZATION. [code = HYPOTENSION MANAGEMENT; RN TO ASSESS AND TEACH/ SUPERVISOR METER REPAIR SHOP /REPOSSESSOR TO OBSERVE AND TEACH WARNING SIGNS AND SYMPTOMS TO AVOID HOSPITALIZATION.] Future Scheduled Test ARRHYTHMIA MANAGEMENT; RN TO ASSESS AND TEACH, SUPERVISOR METER REPAIR SHOP/REPOSSESSOR TO OBSERVE AND TEACH WARNING SIGNS AND SYMPTOMS TO AVOID HOSPITALIZATION. [code = ARRHYTHMIA MANAGEMENT; RN TO ASSESS AND TEACH, SUPERVISOR METER REPAIR SHOP/REPOSSESSOR TO OBSERVE AND TEACH WARNING SIGNS AND SYMPTOMS TO AVOID HOSPITALIZATION.] Future Scheduled Test MEDICATION MANAGEMENT; RN/SUPERVISOR METER REPAIR SHOP/REPOSSESSOR TO REVIEW MEDICATIONS FOR INTERACTIONS, EFFECTIVENESS OF DRUG THERAPY, AND SIGNS/SYMPTOMS OF ADVERSE REACTIONS. MAY INSTRUCT AND REINFORCE MEDICATION TEACHING RELATED TO THE USE OF MEDICATIONS, DOSAGE, FREQUENCY, PURPOSE, SIDE EFFECTS, AND TO REPORT COMPLICATIONS. [code = MEDICATION MANAGEMENT; RN/SUPERVISOR METER REPAIR SHOP/REPOSSESSOR TO REVIEW MEDICATIONS FOR INTERACTIONS, EFFECTIVENESS OF [...] EVAL UATE, OBSERVE / ASSESS, AND MONITOR, COUNTERINTELLIGENCE AGENT TO OBSERVE AND MONITOR, PROVIDE SKILLED THERAPEUTIC INTERVENTION, ACTIVITY, EDUCATION, AND TRAINING TO ADDRESS GEN. WEAKNESS, POOR OVERALL ACTIVITY TOLERANCE, AND FUNCTIONAL LIMITATIONS IMPACTING SAFETY AND INDEPENDENCE. BED MOBILITY (PT/COUNTERINTELLIGENCE AGENT) PT/COUNTERINTELLIGENCE AGENT TO PROVIDE GAIT TRAINING FOR IMPROVED MOBILITY AND /OR TO NORMALIZE GAIT PATTERN THERAPEUTIC EXERCISES AND ESTABLISHING A HOME EXERCISE PROGRAM (PT/COUNTERINTELLIGENCE AGENT) PT/COUNTERINTELLIGENCE AGENT TO PROVIDE STAIR TRAINING PT / COUNTERINTELLIGENCE AGENT TO MONITOR AND EDUCATE ON OXYGEN SATURATION DURING ADLS/IADLS, NOTIFY PHYSICIAN AND/OR THE RN CLINICAL EXPERT WITNESS FOR PHYSICIAN NOTIFICATION AND IF O2 SATS BELOW PHYSICIAN ORDERED PARAMETERS AFTER 10 MIN OF REST PT / COUNTERINTELLIGENCE AGENT TO OBSERVE FOR EARLY SIGNS AND SYMPTOMS OF DEPRESSION OR DEPRESSION GETTING WORSE AND TO EDUCATE ON HOW TO FIND HELP. PT / COUNTERINTELLIGENCE AGENT MAY EDUCATE ON PAIN MANAGEMENT CLINICALLY INDICATED, INCLUDING NON-PHARMACOLOGICAL PAIN REDUCTION TECHNIQUES PT / COUNTERINTELLIGENCE AGENT TO MONITOR FOR HYPO/HYPERGLYCEMIA AND CONDUCT ROUTINE FOOT INSPECTIONS. RECORD PATIENT REPORTED BLOOD SUGAR LEVELS AND NOTIFY PHYSICIAN AND/OR THE RN CLINICAL EXPERT WITNESS FOR PHYSICIAN NOTIFICATION IF BLOOD SUGAR LEVELS ARE OUTSIDE ORDERED PARAMETERS. TEACH PATIENT/CAREGIVER ON DAILY FOOT INSPECTIONS PT / COUNTERINTELLIGENCE AGENT TO INSTRUCT PATIENT/CAREGIVER ON RISK FOR HOSPITALIZATION/EMERGENCY ROOM VISITS, TEACH SIGNS AND SYMPTOMS THAT PUT PATIENT AT RISK, WHEN TO NOTIFY NURSE/PHYSICIAN OF COMPLICATIONS/DECLINE, AND WHEN TO CALL 911. PT/COUNTERINTELLIGENCE AGENT TO EDUCATE ON ARTHRITIS SELF-MANAGEMENT PT / COUNTERINTELLIGENCE AGENT TO EDUCATE ON HEART FAILURE SELF-MANAGEMENT PT / COUNTERINTELLIGENCE AGENT TO EDUCATE ON HYPERTENSION SELF-MANAGEMENT PT TO ASSESS / COUNTERINTELLIGENCE AGENT TO MONITOR CARDIO/RESPIRATORY SYSTEM; AND NOTIFY THE PHYSICIAN AND/OR THE RN CLINICAL EXPERT WITNESS FOR PHYSICIAN NOTIFICATION FOR EARLY SIGNS AND SYMPTOMS OF EXACERBATION OR DETERIORATION. PT / COUNTERINTELLIGENCE AGENT TO EDUCATE ON ATRIAL FIBRILLATION SELF-MANAGEMENT. PT / COUNTERINTELLIGENCE AGENT TO EDUCATE ON PNEUMONIA / ASPIRATION PNEUMONIA SELF-MANAGEMENT. PT/COUNTERINTELLIGENCE AGENT TO IDENTIFY FALL RISK FACTORS; EDUCATE THE PATIENT/CAREGIVER ON WAYS TO REDUCE FALL RISK FACTORS AND ESTABLISH HOME EXERCISE PROGRAM TO MINIMIZE FALL RISK. MAY TEACH THE PATIENT FLOOR RECOVERY WHEN CLINICALLY APPROPRIATE [code = PT TO EVALUATE, OBSERVE / ASSESS, AND MONITOR, COUNTERINTELLIGENCE AGENT TO OBSERVE AND MONITOR, PROVIDE SKILLED THERAPEUTIC INTERVENTION, ACTIVITY, EDUCATION, AND TRAINING TO ADDRESS GEN. WEAKNESS, POOR OVERALL ACTIVITY TOLERANCE, AND FUNCTIONAL LIMITATIONS IMPACTING SAFETY AND INDEPENDENCE. BED MOBILITY (PT/COUNTERINTELLIGENCE AGENT) PT/COUNTERINTELLIGENCE AGENT TO PROVIDE GAIT TRAINING FOR IMPROVED MOBILITY AND /OR TO NORMALIZE GAIT PATTERN THERAPEUTIC EXERCISES AND ESTABLISHING A HOME EXERCISE PROGRAM (PT/COUNTERINTELLIGENCE AGENT) PT/COUNTERINTELLIGENCE AGENT TO PROVIDE STAIR TRAINING PT / COUNTERINTELLIGENCE AGENT TO MONITOR AND EDUCATE ON OXYGEN SATURATION DURING ADLS/IADLS, NOTIFY PHYSICIAN AND/OR THE RN CLINICAL EXPERT WITNESS FOR PHYSICIAN NOTIFICATION AND IF O2 SATS BELOW PHYSICIAN ORDERED PARAMETERS AFTER 10 MIN OF REST PT / COUNTERINTELLIGENCE AGENT TO OBSERVE FOR EARLY SIGNS AND SYMPTOMS OF DEPRESSION OR DEPRESSION GETTING WORSE AND TO EDUCATE ON HOW TO FIND HELP. PT / COUNTERINTELLIGENCE AGENT MAY EDUCATE ON PAIN MANAGEMENT CLINICALLY INDICATED, INCLUDING NON-PHARMACOLOGICAL PAIN REDUCTION TECHNIQUES PT / COUNTERINTELLIGENCE AGENT TO MONITOR FOR HYPO/HYPERGLYCEMIA AND CONDUCT ROUTINE FOOT INSPECTIONS. RECORD PATIENT REPORTED BLOOD SUGAR LEVELS AND NOTIFY PHYSICIAN AND/OR THE RN CLINICAL EXPERT WITNESS FOR PHYSICIAN NOTIFICATION IF BLOOD SUGAR LEVELS ARE OUTSIDE ORDERED PARAMETERS. TEACH PATIENT/CAREGIVER ON DAILY FOOT INSPECTIONS PT / COUNTERINTELLIGENCE AGENT TO INSTRUCT PATIENT/CAREGIVER ON RISK FOR HOSPITALIZATION/EMERGENCY ROOM VISITS, TEACH SIGNS AND SYMPTOMS THAT PUT PATIENT AT RISK, WHEN TO NOTIFY NURSE/PHYSICIAN OF COMPLICATIONS/DECLINE, AND WHEN TO CALL 911. PT/COUNTERINTELLIGENCE AGENT TO EDUCATE ON ARTHRITIS SELF-MANAGEMENT PT / COUNTERINTELLIGENCE AGENT TO EDUCATE ON HEART FAILURE SELF-MANAGEMENT PT / COUNTERINTELLIGENCE AGENT TO EDUCATE ON HYPERTENSION SELF-MANAGEMENT PT TO ASSESS / COUNTERINTELLIGENCE AGENT TO MONITOR CARDIO/RESPIRATORY SYSTEM; AND NOTIFY THE PHYSICIAN AND/OR THE RN CLINICAL EXPERT WITNESS FOR PHYSICIAN NOTIFICATION FOR EARLY SIGNS AND SYMPTOMS OF EXACERBATION OR DETERIORATION. PT / COUNTERINTELLIGENCE AGENT TO EDUCATE ON ATRIAL FIBRILLATION SELF-MANAGEMENT. PT / COUNTERINTELLIGENCE AGENT TO EDUCATE ON PNEUMONIA / ASPIRATION PNEUMONIA SELF-MANAGEMENT. PT/COUNTERINTELLIGENCE AGENT TO IDENTIFY FALL RISK FACTORS; EDUCATE [...] ACTIVITIES OF DAILY LIVING (OT/MARIANNE) THERAPEUTIC EXERCISE (OT/CLINICAL PHARMACIST) ENERGY CONSERVATION/ACTIVITY DEMAND (OT/MARIANNE) OT/CLINICAL PHARMACIST TO MONITOR AND EDUCATE ON OXYGEN SATURATION DURING ADLS/IADLS, NOTIFY PHYSICIAN AND/OR THE RN CLINICAL EXPERT WITNESS FOR PHYSICIAN NOTIFICATION AND IF O2 SATS BELOW 90% AFTER 10 MIN OF REST. OT / MARIANNE TO IDENTIFY FALL RISK FACTORS; EDUCATE THE PATIENT/CAREGIVER ON WAYS TO REDUCE FALL RISK FACTORS AND ESTABLISH HOME EXERCISE PROGRAM TO MINIMIZE FALL RISK. MAY TEACH THE PATIENT FLOOR RECOVERY WHEN CLINICALLY APPROPRIATE. OT/CLINICAL PHARMACIST TO EDUCATE ON HYPERTENSION SELF-MANAGEMENT OT/MARIANNE TO [...] ADLS/IADLS, NOTIFY PHYSICIAN AND/OR THE RN CLINICAL EXPERT WITNESS FOR PHYSICIAN NOTIFICATION AND IF O2 SATS BELOW 90% AFTER 10 MIN OF REST. OT / CLINICAL PHARMACIST TO IDENTIFY FALL RISK FACTORS; EDUCATE THE PATIENT/CAREGIVER ON WAYS TO REDUCE FALL RISK FACTORS AND ESTABLISH HOME EXERCISE PROGRAM TO MINIMIZE FALL RISK. MAY TEACH THE PATIENT FLOOR RECOVERY WHEN CLINICALLY APPROPRIATE. OT/CLINICAL PHARMACIST TO EDUCATE ON HYPERTENSION SELF-MANAGEMENT OT/CLINICAL PHARMACIST TO EDUCATE ON ATRIAL FIBRILLATION SELF-MANAGEMENT.] Goal [...] OF SKIN INTEGRITY ISSUES FROM SBA TO MD WITHIN 2 WKS. PT STG: PATIENT WILL [...] TO SAFELY NEGOTIATE STAIRS FROM SBA TO MD WITH 2 STEPS W/O HANDRAIL VIA FRONT [...] PATIENT SISTER STATED WILL TAKE PATIENT TO [facility] ER FOR EVALUATION. CALL PLACED TO PHYSICIAN OFFICE UPDATING ON PATIENT CONDITION AND PATIENT GOING TO ER FOR EVALUATION. DISCUSSED WITH PATIENT TO CONTACT [facility] WITH QUESTIONA AND CONCERNS. PATIENT VERBALIZED UNDERSTANDING.</paragraph> Encounters Start Date/Time End Date/Time Encounter Type Admission Type Attending [facility] Care Department Encounter ID Discharge Date Discharge Status Discharge Condition Discharge Reason Percent Goals Met 2025-02-07 00:00:00 2025-04-07 00:00:00 Outpatient NEW ADMISSION FRANKIE STOKES [facility] [id number] 19.05
== END 2025-02-18 17:31 | disposition home or self-care (01) ==
PROVIDERS: Emergency Provider Family Medicine; PCP Family Medicine
DX: R06.02 Shortness of breath (principal); I10 Essential (primary) hypertension; I42.9 Cardiomyopathy, unspecified; I25.10 Atherosclerotic heart disease of native coronary artery without angina pectoris; E27.40 Unspecified adrenocortical insufficiency; E78.00 Pure hypercholesterolemia, unspecified; K21.9 Gastro-esophageal reflux disease without esophagitis; Z93.0 Tracheostomy status; Z95.1 Presence of aortocoronary bypass graft; Z85.528 Personal history of other malignant neoplasm of kidney; Z86.711 Personal history of pulmonary embolism; Z87.891 Personal history of nicotine dependence; Z90.5 Acquired absence of kidney; Z79.899 Other long term (current) drug therapy; Z79.01 Long term (current) use of anticoagulants
CPT/HCPCS: 36415; 71046; 80053; 83880; 85025; 93005; 99284

== ENCOUNTER 2025-03-29 11:28 | Emergency (ER) | payer MEDICARE, SELFPAY ==
[2025-03-29] VITALS (11 sets, daily range): BP systolic 104–129; BP diastolic 66–89; PULSE 95–104; RESP 16–24; TEMP 36.4; O2SAT 91–97
--- NOTE | ~2025-03-29 | XR_ITS ---
EXAMINATION: XR chest 2V DATE: 03/29/2025 13:07 INDICATION: Shortness of breath. Difficulty breathing. TECHNIQUE: frontal and lateral views of the chest were obtained. COMPARISON: Chest radiograph dated 02/18/2025 FINDINGS: The lungs are clear with no focal airspace opacities, pulmonary edema, pleural effusion or pneumothorax. Heart size is normal. Median sternotomy wires and mediastinal surgical clips are seen, likely from prior coronary artery bypass grafting. Left atrial appendage occlusion clip. Retained epicardial pacemaker leads along the anterior inferior margin of the heart. IMPRESSION: 1. No acute cardiopulmonary disease. Reviewed, dictated and finalized at location A. REPAIRER
--- NOTE | 2025-03-29 11:35 | ECG_ITS ---
Test Date: 2025-03-29 11:40:28 Measurements Intervals [place] Rate: 105 P: 81 [place]: 201 QRS: -69 QRSD: 168 T: 27 QT: 417 QTc: 553 Interpretive Statements SINUS TACHYCARDIA WITH FIRST-DEGREE AV BLOCK INDETERMINATE AXIS RIGHT BUNDLE BRANCH BLOCK [120+ ms QRS DURATION, UPRIGHT V1, 40+ ms S IN I/aVL/V4/V5/V6] CONSIDER PREVIOUS INFERIOR INFARCTION ABNORMAL ECG Compared to ECG 02/18/2025 14:48:19 NO SIGNIFICANT CHANGE Electronically Signed On 03-29-2025 13:26:59 TWISTER IN by Mikey Kelley M.D.
[2025-03-29 11:56] LABS: Hematocrit 35.9 % (42.0-52.0); Hemoglobin 11.6 g/dL (14.0-18.0); Immature Granulocyte Percent A 0.4 % (0-0.5); Lymphocytes Absolute Auto 1.43 K/mm3 (0.9-3.2); Mean Corpuscular HGB Conc 32.3 g/dl (32-36); Mean Corpuscular Hemoglobin 31.4 pg (26-34); Mean Corpuscular Volume 97.3 fl (80-100); Nucleated Red Blood Cells Absolute Auto 0.000 K/mm3 (0.0-0.012); Nucleated Red Blood Cells Perc 0.0 % (0.0-0.2); Platelet Count Result 207 k/mm3 (150-375); Red Blood Count 3.69 M/mm3 (4.6-6.20); White Blood Count 6.9 K/mm3 (4.5-10.0)
[2025-03-29 12:31] LABS: Alanine Aminotransferase 16 U/L (6-50); Albumin Level 4.0 g/dL (3.5-5.1); Alkaline Phosphatase 52 U/L (38-126); Anion Gap 11 mmol/L (4-12); Aspartate Amino Transferase 24 U/L (17-59); Bilirubin,Total 1.8 mg/dL (0.2-1.3); Blood Urea Nitrogen 15 mg/dL (9-20); Calcium 9.0 mg/dL (8.4-10.2); Carbon Dioxide 20 mmol/L (22-30); Chloride 103 mmol/L (98-107); Estimated CRCL calculation 44 ml/min; Estimated Glomerular Filt Rate 54; Glucose 85 mg/dL (65-110); Potassium 3.9 mmol/L (3.4-5.0); Sodium 134 mmol/L (137-145); Total Protein 6.9 g/dL (6.3-8.2)
[2025-03-29] MEDS: ONDANSETRON INJ 4 MG/2 ML VIAL IV PUSH ×2 (15:18→20:30)
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
--- OUTSIDE RECORDS SUMMARY | 2025-03-29 16:07 | XMS_ITS | Encounter Summary ---
Author Organization [facility] Address [address] [place] [address] Phone Care Team Providers Care Provider Relations Specialist Name Role Phone Parisa, Mykel Siddiqui DO Unavailable [phone] Yaya Elizondo MD Primary Care Provider [phone] Micheal Cabral MD Unavailable [phone] Yaya Elizondo MD Primary Care Provider Jeferson Elena MD Primary Care Provider Artie Henderson MD Unavailable Ana M Renteria MD Unavailable Shiva Barrientos MD Unavailable Aileen Griffin NP Unavailable Parth Dalton MD Unavailable Encounter Details Date Type Department Care Team (Late st Contact Info) Description 07/02/2022 Telephone [facility] Medicine Cardiology [address] [facility] 8th [place] [address] [place] [address] Artie Henderson MD [address] [facility] [address] [place] [address] Social History Tobacco Use Types [...] How often do you attend chur or latter day services? Never 07/03/2022 Do you belong to any clubs o r organizations such as scientologist groups, unions, fraternal or athletic groups, or [...] place to sleep or slept in a prison (including now)? 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 Not on file Not on file documented as of this encounter Functional Status * Question Answer Date of Assessment Author MAP (mmHg) 80 07/05/2022 11:32 AM BATCH AND FURNACE OPERATOR Jennifer Parrish RN * Question Answer Date of Assessment Author BP Location Left arm 07/05/2022 11:32 AM Jennifer Keita RN BP Method Automatic 07/05/2022 11:32 AM Jennifer Keita RN * Avina Fall Risk Question Answer Date of Assessment Author History of Falling 0 07/05/2022 7:17 AM Jennifer Rojas RN Secondary Diagnosis 15 07/05/2022 7:17 AM CS T Jennifer Breaux RN Ambulatory Aids 0 07/05/2022 7:17 AM Jennifer Oh RN Intravenous Therapy/Heparin/Saline Lock 20 07/05/2022 7:17 AM Jennifer Rojas RN Gait/Transferring 0 07/05/2022 7:17 AM Jennifer Rojas RN Mental Status 0 07/05/2022 7:17 AM Jennifer Keita RN Avina Fall Risk Score (Score >= 45 places fall precaution order) 35 07/05/2022 7:17 AM Jennifer Rojas RN Prior Fall Event (Autopopula peyton from EMR) None found 07/05/2022 7:17 AM Jennifer Rojas RN * Job Scale Question Answer Date of Assessment Author Sensory Perceptions 4 07/05/2022 7:17 AM Jennifer Morley RN Moisture 4 07/05/2022 7:17 AM Jennifer Carl RN Activity 4 07/05/2022 7:17 AM Jennifer Carl RN Mobility 4 07/05/2022 7:17 AM Jennifer Carl RN Nutrition 4 07/05/2022 7:17 AM Jennifer Carl RN Friction and Shear 3 07/05/2022 7:17 AM Jennifer Rojas RN Job Scale Score 23 07/05/2022 7:17 AM Jennifer Rojas RN * Fall Risk Interventions Question Answer Date of Assessment Author All Low Fall Interventions Applied Yes 07/05/2022 7:17 AM Jennifer Rojas RN All Moderate Fall Interventions Applied No 07/05/2022 7:17 AM Jennifer Rojas RN All Moderate Fall Risk Interventions EXCEPT: Gait belt at bedside 07/05/2022 7:17 AM Jennifer Rojas RN All High Fall Risk Interventions Applied No 07/05/2022 7:17 AM Jennifer Rojas RN All High Risk Interventions EXCEPT: Bed alarm;Chair alarm 07/05/2022 7:17 AM Jennifer Rojas RN Reason For Exception(s) BMAT green 07/05/19 7:17 AM Jennifer Rojas RN Reason For Exception(s) call light appropriate 0 07/05/2022 7:17 AM Jennifer Rojas RN * B.M.A.T. - Bedside Mobility Assessment Tool for Nurses Question Answer Date of Assessment Author Is patient able to participate in the BMAT? Yes 07/05/2022 7:17 AM Bhavana Rojas RN BMAT Level Level 4 - Green 07/05/2022 7:17 AM Jennifer Oh RN * Question Answer Date of Assessment Author 1. Has the patient self-reported, presented with clinical signs of, or have a documented history of any of the following within the past 30 days? No 07/02/2022 8:00 PM Kartik Philip RN * Self-Injurious Risk Level Answer Date of Assessment Author No risk level 07/02/2022 8:00 PM Kartik Philip RN * Alcohol Withdrawal BP Hierarchy Answer Date of Assessment Author 70 07/05/2022 11:32 AM Jennifer Rojas RN * Pressure Injury Prevention Question Answer Date of Assessment Author Pressure Ulcer Prevention Interventions Keep skin clean and dry (Sensory Perception/Moisture);E stablish turning schedule (Sensory Perception/Activity/Mo bility);Educate caregivers regarding pressure ulcer prevention (Sensory Perception) 07/05/2022 7:17 AM Jennifer Rojas RN * Integumentary Question Answer Date of Assessment Author Skin Color Appropriate for ethnicity 07/05/2022 7:17 AM Jennifer Rojas RN Skin Condition/Temp Warm;Dry 07/05/2022 7:17 AM Jennifer Morley RN Skin Integrity Intact 07/05/2022 7:17 AM Jennifer Quintanilla RN Skin Turgor Non-tenting 07/05/2022 7:17 AM Jennifer Carl RN Integumentary (WDL) X 07/05/2022 7:17 AM Jennifer Morley RN Skin Location N/A 07/05/2022 7:17 AM Jennifer Keita RN * Question Answer Date of Assessment Author BP Location Left arm 07/05/2022 11:32 AM Jennifer Keita RN BP Method Automatic 07/05/2022 11:32 AM Jennifer Keita RN * Question Answer Date of Assessment Author Bed In Lowest Position Yes 07/05/2022 7:17 AM Jennifer Rojas RN Bed Wheels Locked Yes 07/05/2022 7:17 AM Jennifer Rojas RN * Fall Risk Interventions Question Answer Date of Assessment Author All Low Fall Interventions Applied Yes 07/05/2022 7:17 AM Jennifer Rojas RN All Moderate Fall Interventions Applied No 07/05/2022 7:17 AM Jennifer Rojas RN All Moderate Fall Risk Interventions EXCEPT: Gait belt at bedside 07/05/2022 7:17 AM Jennifer Rojas RN All High Fall Risk Interventions Applied No 07/05/2022 7:17 AM Jennifer Rojas RN All High Risk Interventions EXCEPT: Bed alarm;Chair alarm 07/05/2022 7:17 AM Jennifer Rojas RN Reason For Exception(s) BMAT green 07/05/19 7:17 AM Jennifer Rojas RN Reason For Exception(s) call light appropriate 0 07/05/2022 7:17 AM Jennifer Rojas RN * Question Answer Date of Assessment Author Skin Care Other (Comment) 07/05/2022 7:17 AM Jennifer Rojas RN Hygiene Gown Changed;Hair washed 023 12:26 PM Gwendolyn Babcock RN Oral Care Teeth brushed 07/04/2022 8:00 PM Kartik Philip RN Hygiene Level of Assistance Independent 07/05/2022 7:17 AM Jennifer Rojas RN Toileting: Assistance with Use of adaptive equipment 07/05/2022 7:17 AM Jennifer Rojas RN Toileting: Level of assistance Independent 07/05/2022 7:17 AM Jennifer Rojas RN Bath Bathed/showered with chlorhexidine (CHG) 07/04/2022 12:26 PM Gwendolyn Babcock RN * ADL Screening Question Answer Date of Assessment Author Patient's Vision Adequate to Safely Complete Daily Activities Yes 07/02/2022 8:00 PM Kartik Philip RN Patient's Judgement Adequate to Safely Complete Daily Activities Yes 07/02/2022 8:00 PM Kartik Philip RN Patient's Memory Adequate to Safely Complete Daily Activities Yes 07/02/2022 8:00 PM Kartik Philip RN Patient Able to Express Needs/Desires Yes 07/02/2022 8:00 PM Kartik Philip RN Dressing Independent 07/02/2022 8:00 PM Kartik Rosenbaum RN Grooming Independent 07/02/2022 8:00 PM Kartik Posadas RN Feeding Independent 07/02/2022 8:00 PM Kartik Posadas RN Bathing Independent 07/02/2022 8:00 PM Kartik Posadas RN Toileting Independent 07/02/2022 8:00 PM Kartik Posadas RN In/Out Bed Independent 07/02/2022 8:00 PM Kartik Posadas RN Walks in Home Independent 07/02/2022 8:00 PM BATCH AND FURNACE OPERATOR Kartik Mason RN Weakness of Legs None 07/02/2022 8:00 PM BATCH AND FURNACE OPERATOR Kartik Triplett RN Weakness of Arms/Hands None 07/02/2022 8:00 PM Kartik Philip, FELICITA Hearing - Right Ear Functional 07/02/2022 8:00 PM CS Kartik Perales RN Hearing - Left Ear Functional 07/02/2022 8:00 PM Kartik Philip RN Dominant hand? Right 07/02/2022 8:00 PM Kartik Fregoso RN Decline in ADLs in last 2 weeks? No 07/02/2022 8:00 PM Kartik Philip, FELICITA * Therapy Consults Question Answer Date of Assessment Author PT Evaluation Needed 2 07/02/2022 8:00 PM Kartik Hawthorne RN OT Evaluation Needed 2 07/02/2022 8:00 PM Kartik Hawthorne, FELICITA CIAIO COUNTER MOLDER Evaluation Needed 2 07/02/2022 8:00 PM Kartik Philip, FELICITA * Assistive Devices Question Answer Date of Assessment Author Assistive Devices/DME Eyeglasses 07/02/2022 8:00 PM Kartik Philip RN * Question Answer Date of Assessment Author Self Harm/Suicidal Ideation Plan No 07/03/2022 11:51 AM Jonah Slater LCSW Previous Self Harm/Suicidal Attempts No 07/03/2022 11:51 AM Jonah Slater LCSW Current Plans to Harm Another No 07/03/2022 11:51 AM Carmen Slater LCSW * Nutrition Question Answer Date of Assessment Author Percent Meal Eaten (%) 100 07/05/2022 9:00 AM Jennifer Rojas RN Feeding Level of Assistance Able to feed self 07/05/2022 9:00 AM Jennifer Rojas RN Appetite Good 07/03/2022 8:00 AM BATCH AND FURNACE OPERATOR Estefanía Dash RN documented as of this encounter Mental Status * Question Answer Entry Date Author Level of Consciousness Alert;Awake 7:17 AM Jennifer Rojas RN Orientation Oriented X4 (person, place, time, situation) 07/05/2022 7:17 AM Jennifer Rojas RN Neuro (WDL) WDL 07/05/2022 7:17 AM Jennifer Rojas RN Other Neuro Symptoms Fatigue 07/05/2022 7:17 AM Jennifer Rojas RN * Question Answer Entry Date Author Feature 3: Altered Level of Consciousness Negative 07/05/2022 7:17 AM Jennifer Rojas RN Feature 1: Acute Onset or Fluctuating Course Negative 07/05/2022 7:17 AM Jennifer Rojas RN Feature 2: Inattention Negative 07/05/2022 7:17 AM Jennifer Rojas RN Feature 4: Disorganized Thinking Negative 07/05/19 7:17 AM Jennifer Rojas RN Overall CAM-ICU Negative 07/05/2022 7:17 AM BATCH AND FURNACE OPERATOR Jennifer Ledesma RN documented in this encounter Plan of Treatment Not on file documented as of this encounter Visit Diagnoses Not on filedocumented in this encounter Additional Health Concerns Infection Onset Date Last Indicated Resolved Time COVID: Suspected 07/03/2022 07/03/2022 07/03/2022 1:37 PM BATCH AND FURNACE OPERATOR COVID: Suspected 07/10/2024 07/10/2024 07/10/2024 2:32 PM BATCH AND FURNACE OPERATOR Ring Surveillance: C. auris Comment:This flag [...] documented as of this encounter Care Teams Provider Relations Specialist Relationship Specialty Start Date End Date Yaya Elizondo MD [address] [facility], [address] [place] [address] PCP - General Family Medicine 10/07/21 01/23/23 Yaya Elizondo MD [address] [facility] [address] [place] [address] PCP - General Family Medicine 01/24/23 02/16/23 Jeferson Elena MD [address] [place] [address] PCP - General Family Medicine 02/17/23 Mykel Mccauley DO [address] [facility], [address] [place] [address] Medical Oncologist/Hematologis t Hematology and Oncology 08/28/21 Micheal Cabral MD [address] [facility] [address] [place] [address] Consulting Physician General Surgery 08/11/22 Artie Henderson MD [address] [place], [place] [address] Referring Physician Cardiology 02/17/23 Ana M Renteria MD [address] [place] [address] Referring Physician Cardiology 11/21/23 [place] [address] [facility] [address] [place] [address] Consulting Physician Endocrinology Diabetes & Metabolism 11/21/23 [place] [address] [address] [facility] [address] [place] [address] Nurse Practitioner Endocrinology Diabetes & Metabolism 11/21/23 Parth Dalton MD [address] [place] [address] Surgeon Cardiothoracic Surgery 12/07/24 documented as of this encounter
--- OUTSIDE RECORDS SUMMARY | 2025-03-29 16:09 | XMS_ITS | Encounter Summary ---
Author Organization [facility] Address [address] [place] [address] Care Team Providers Care Instructional Writer Name Role Phone Mykel Mccauley DO Unavailable Yaya Elizondo MD Primary Care Provider [phone] Micheal Cabral MD Unavailable [phone] Yaya Elizondo MD Primary Care Provider [phone] Jeferson Elena MD Primary Care Provider Artie Henderson MD Unavailable Ana M Renteria MD Unavailable [phone] Shiva Barrientos MD Unavailable Aileen Griffin NP Unavailable Parth Dalton MD Unavailable [phone] Encounter Details Date Type Department Care Team (Late st Contact Info) Description 04/05/2022 Documentation [facility] Social Work [address] [place] [address] Alivia Pham MSW Social History Tobacco Use [...] often do you attend chur ch or amish services? Never 03/30/2022 Do you belong to any clubs o r organizations such as rastafarian groups, unions, fraternal or athletic groups, or [...] slept in a custodial (including now)? 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 Not on file Not on file documented as of this encounter Functional Status * Question Answer Date of Assessment Author BP Location Right arm 04/08/2022 9:15 PM HEARING SCREEN COORDINATOR Wendy Lockhart RN BP Method Automatic 04/08/2022 9:15 PM HEARING SCREEN COORDINATOR Wendy Lockhart RN MAP (mmHg) 87 04/08/2022 9:15 PM HEARING SCREEN COORDINATOR Wendy Lockhart RN * Avina Fall Risk Question Answer Date of Assessment Author History of Falling 25 04/08/2022 9:15 PM Wendy Sauer RN Secondary Diagnosis 15 04/08/2022 9:15 PM CS Wendy Adnrade RN Ambulatory Aids 0 04/08/2022 9:15 PM Wendy Coronado RN Intravenous Therapy/Heparin/Saline Lock 20 04/08/2022 9:15 PM Wendy Sauer RN Gait/Transferring 10 04/08/2022 9:15 PM Wendy Sauer RN Mental Status 0 04/08/2022 9:15 PM HEARING SCREEN COORDINATOR Wendy Abrams RN Avina Fall Risk Score (Score >= 45 places fall precaution order) 70 04/08/2022 9:15 PM Wendy Sauer RN Prior Fall Event (Autopopulated from EMR) None found 04/08/2022 9:15 PM HEARING SCREEN COORDINATOR Ibis Whittaker RN * Job Scale Question Answer Date of Assessment Author Sensory Perceptions 3 04/08/2022 9:15 PM CS Wendy Andrade, FELICITA Moisture 4 04/08/2022 9:15 PM HEARING SCREEN COORDINATOR Wendy Lockhart RN Activity 2 04/08/2022 9:15 PM HEARING SCREEN COORDINATOR Wendy Lockhart RN Mobility 3 04/08/2022 9:15 PM Wendy Atkins RN Nutrition 3 04/08/2022 9:15 PM HEARING SCREEN COORDINATOR Wendy Lockhart RN Friction and Shear 3 04/08/2022 9:15 PM Wendy Sauer RN Job Scale Score 18 04/08/2022 9:15 PM Wendy Sauer, FELICITA * Fall Risk Interventions Question Answer Date of Assessment Author All Low Fall Interventions Applied Yes 04/08/2022 9:15 PM Wendy Sauer RN All Moderate Fall Interventions Applied Yes 04/08/2022 9:15 PM Wendy Sauer RN All High Fall Risk Interventions Applied No 04/08/2022 9:15 PM Wendy Sauer RN All High Risk Interventions EXCEPT: Collaborate with family 04/08/2022 9:15 PM Wendy Sauer RN Additional Interventions Applied Bed/chair alarm;Over-bed table on non-exit side;Exit bed on strong/preferred side 04/08/2022 7:00 AM Kendra Gasca, FELICITA Reason For Exception(s) No family at the bedside 04/08/2022 9:15 PM Wendy Sauer, FELICITA * Question Answer Date of Assessment Author Protective Foam Dressing Location Coccyx 04/08/2022 9:15 PM Wendy Sauer, FELICITA * Question Answer Date of Assessment Author PT Functional Mobility Therapeutic activ ity and education provided 04/06/2022 1:09 PM Evelina Akbar, PT * B.M.A.T. - Bedside Mobility Assessment Tool for Nurses Question Answer Date of Assessment Author Is patient able to participate in the BMAT? Yes 04/08/2022 7:00 AM Kendra Gasca RN Reason patient is unable to participate in BMAT Medically contraindicated 04/05/2022 8:41 PM HEARING SCREEN COORDINATOR Deb Hooper RN BMAT Level Level 3 - Yellow 04/08/2022 7:00 AM Kendra Gasca RN Level 2 Equipment Use total lift for patient unable to weight-bear on at least one leg 04/06/2022 7:30 AM Patricia Dennison RN Level 3 Equipment Use assistive device such as cane/walker 04/08/2022 7:00 AM HEARING SCREEN COORDINATOR Kendra Javier, FELICITA * Pressure Injury Prevention Question Answer Date of Assessment Author Pressure Ulcer Prevention Interventions Keep skin clean and dry (Sensory Perception/Moistur e) 04/08/2022 9:15 PM Wendy Sauer RN * Integumentary Question Answer Date of Assessment Author Skin Color Appropriate for ethnicity 04/08/2022 9:15 PM Wendy Sauer RN Skin Condition/Temp Warm;Dry 04/08/2022 9 :15 PM Wendy Sauer RN Skin Integrity Blanchable redness 04/08/2022 9: 15 PM Wendy Sauer RN Skin Turgor Non-tenting 04/08/2022 9:00 AM Kendra Gasca RN Integumentary Additional Assessments Yes-Job 04/08/2022 9:15 PM Wendy Sauer RN Integumentary (WDL) X 04/08/2022 9 :15 PM Wendy Sauer RN Skin Location lower abdomen, coccyx 04/08/2022 9:00 AM HEARING SCREEN COORDINATOR Kendra Javier, FELICITA * Question Answer Date of Assessment Author Special Mattress Rotation alternating pressure relief 04/08/2022 7:00 AM Kendra Gasca, FELICITA * Question Answer Date of Assessment Author BP Location Right arm 04/08/2022 9:15 PM HEARING SCREEN COORDINATOR Wendy Lockhart RN BP Method Automatic 04/08/2022 9:15 PM HEARING SCREEN COORDINATOR Wendy Lockhart, FELICITA * Question Answer Date of Assessment Author RLE Edema No pitting 04/05/2022 8:41 PM Deb Calderon, FELICITA LLE Edema No pitting 04/05/2022 8:41 PM Deb Calderon RN Edema Right lower extremit y;Left lower extremity 04/05/2022 8:41 PM Deb Carrillo, FELICITA * Question Answer Date of Assessment Author Affect Calm 04/08/2022 9:15 PM Wendy Atkins RN Mood Irritable 04/07/2022 3:08 AM Wendy Atkins, FELICITA * Question Answer Date of Assessment Author Bed In Lowest Position Yes 04/08/2022 9:15 PM Wendy Sauer RN Bed Wheels Locked Yes 04/08/2022 9:15 PM Wendy Sauer RN * Fall Risk Interventions Question Answer Date of Assessment Author All Low Fall Interventions Applied Yes 04/08/2022 9:15 PM Wendy Sauer RN All Moderate Fall Interventions Applied Yes 04/08/2022 9:15 PM Wendy Sauer RN All High Fall Risk Interventions Applied No 04/08/2022 9:15 PM Wendy Sauer RN All High Risk Interventions EXCEPT: Collaborate with family 04/08/2022 9:15 PM Wendy Sauer RN Additional Interventions Applied Bed/chair alarm;Over-bed table on non-exit side;Exit bed on strong/preferred side 04/08/2022 7:00 AM Kendra Gasca, FELICITA Reason For Exception(s) No family at the bedside 04/08/2022 9:15 PM Wendy Sauer, FELICITA * Question Answer Date of Assessment Author Skin Care Protective Foam Dressing 022 7:55 PM Wendy Sauer, FELICITA Hygiene Hair washed;Gown Changed 022 9:00 AM Kendra Gasca, FELICITA Oral Care Teeth brushed 04/08/2022 9:00 AM Kendra Gasca RN Hygiene Level of Assistance Moderate assist 04/08/2022 9:15 PM Wendy Sauer RN Perineal Care Lisa Care 04/08/2022 9:15 PM Wendy Sauer RN Linens Complete linen change 04/08/2022 9:00 AM Kendra Gasca RN Bath Bathed/showered with chlorhexidine (CHG) 04/08/2022 9:15 PM Wendy Sauer RN * Nutrition Question Answer Date of Assessment Author Percent Meal Eaten (%) 100 04/08/2022 9:00 AM HEARING SCREEN COORDINATOR Sunny Mota RN Feeding Level of Assistance Able to feed self 04/08/2022 9:15 PM Wendy Sauer RN Appetite Good 04/08/2022 9:15 PM HEARING SCREEN COORDINATOR Wendy Lockhart RN documented as of this encounter Mental Status * Question Answer Entry Date Author Level of Consciousness Alert;Awake 04/08/2022 9:15 PM Wendy Sauer RN * Question Answer Entry Date Author Orientation Oriented to person;Oriented to place 04/08/2022 9:15 PM Wendy Sauer RN Neuro (WDL) X 04/08/2022 9:15 PM Wendy Sauer RN Other Neuro Symptoms Forgetful 04/07/2022 9:00 AM HEARING SCREEN COORDINATOR Patricia Aguirre RN documented in this encounter Miscellaneous Notes * Plan of Care - Alivia Pham MSW - 04/05/2022 8:57 AM CST Patient was transferred from [address] S[facility] [place] [address]. SW notified. Problem: Ensure acute medical needs are met and that patient has a safe discharge plan. Goal: Secure a facility that patient/family are agreeable with and ensure patient has continuum of care. Discharge Plan: 7800 SICU SW was following for SDOH. Patient screened by [facility] for Medicaid application assistance. Discharge status TBD. FARRU[place] ING SCREEN COORDINATOR documented in this encounter Plan of Treatment Not on file documented as of this encounter Visit Diagnoses Not on filedocumented in this encounter Additional Health Concerns Infection Onset Date Last Indicated Resolved Time COVID: Recovered Comment:Added based on recent COVID infection. 03/23/2022 03/23/2022 06/21/2022 3:[address] COVID: Suspected 07/01/2022 07/01/2022 07/01/2022 5:41 PM HEARING SCREEN COORDINATOR COVID: Suspected 07/03/2022 07/03/2022 07/03/2022 1:37 PM HEARING SCREEN COORDINATOR COVID: Suspected 07/10/2024 07/10/2024 07/10/2024 2:32 PM HEARING SCREEN COORDINATOR Ring Surveillance: C. auris Comment:This flag is [...] documented as of this encounter Care Teams Instructional Writer Relationship Specialty Start Date End Date Yaya Elizondo MD [address] [facility], [address] [place] [address] PCP - General Family Medicine 10/07/21 01/23/23 Yaya Elizondo MD [address] [facility] [address] [place] [address] PCP - General Family Medicine 01/24/23 02/16/23 Jeferson Elena MD [address] [facility] [address] [place] [address] PCP - General Family Medicine 02/17/23 Mykel Mccauley DO [address] [facility], [address] [place], [place] [address] Medical Oncologist/Hematologis t Hematology and Oncology 08/28/21 Micheal Cabral MD [address] [facility] [address] [place] [address] Consulting Physician General Surgery 08/11/22 Artie Henderson MD [address] [facility] [address] [place] [address] Referring Physician Cardiology 02/17/23 Ana M Renteria MD [address] [facility] [address] [place] [address] Referring Physician Cardiology 11/21/23 [place] [address] [address] Consulting Physician Endocrinology Diabetes & Metabolism 11/21/23 [place] [address] [address] Nurse Practitioner Endocrinology Diabetes & Metabolism 11/21/23 Parth Dalton MD [address] [facility] [id number] [place] [address] Surgeon Cardiothoracic Surgery 12/07/24 documented as of this encounter
--- OUTSIDE RECORDS SUMMARY | 2025-03-29 16:14 | XMS_ITS | Clinical Summary ---
Author Organization [facility] Address [address] [place] [address] Care Team Providers Care Backrest Assembler Name Role Phone Mykel Mccauley DO Unavailable [phone] Micheal Cabral MD Unavailable [phone] Jeferson Elena MD Primary Care Provider Artie Henderson MD Unavailable Ana M Renteria MD Unavailable [phone] Shiva Barrientos MD Unavailable Aileen Griffin NP Unavailable Parth Dalton MD Unavailable Allergies Active Allergy Reactions Criticality Noted Date Comments Pembrolizumab Mental status changes High 03/10/2022 Encephalitis Medications escitalopram (LEXAPRO) 10 mg tablet Take 1 tablet (10 mg total) by mouth daily 025 Active predniSONE (DELTASONE) 5 mg tablet Take 1 tablet (5 mg) by mouth daily 025 Active aspirin 81 mg enteric coated tablet Take 1 tablet (81 mg total) by mouth daily 025 2025 Active ipratropium-alb uteroL (DUO-NEB) 0.5-2.5 mg/3 mL nebulizer solution Take 3 mL by nebulization every 6 (six) hours 180 mL Active furosemide (LASIX) 20 mg tablet Take 1 tablet (20 mg total) by mouth daily as needed (swelling or fluid retention) 30 tablet 11 2025 Active metoprolol XL (TOPROL-XL) 25 mg extended release tablet Take 1 tablet (25 mg total) by mouth daily 90 tablet 3 2025 Active atorvastatin (LIPITOR) 80 mg tablet Take 1 tablet (80 mg total) by mouth nightly 90 tablet 3 2025 Active ezetimibe (ZETIA) 10 mg tablet Take 1 tablet (10 mg total) by mouth nightly 90 tablet 3 2025 Active spironolactone (ALDACTONE) 25 mg tablet Take 0.5 tablets (12.5 mg total) by mouth daily 45 tablet 3 2025 Active albuterol HFA (PROVENTIL HFA,VENTOLIN HFA,PROAIR HFA) 90 mcg/actuation inhaler INHALE 2 PUFFS BY MOUTH EVERY 6 HOURS NEEDED FOR WHEEZING OR SHORTNESS OF BREATH Active atorvastatin (LIPITOR) 80 mg tablet Take 1 tablet (80 mg total) by mouth nightly 2024 Discontinued(R eorder) ezetimibe (ZETIA) 10 mg tablet Take 1 tablet (10 mg total) by mouth nightly 2024 Discontinued(R eorder) digoxin (LANOXIN) 62.5 mcg (0.0625 mg) tabletIndicatio ns:Ventricular Rate Control in Atrial Fibrillation Take 1 tablet (62.5 mcg total) by mouth daily 2024 Discontinued(R eorder) ipratropium-alb uteroL (DUO-NEB) 0.5-2.5 mg/3 mL nebulizer solution Take 3 mL by nebulization every 6 (six) hours 2024 Discontinued(R eorder) spironolactone (ALDACTONE) 25 mg tablet Take 0.5 tablets (12.5 mg total) by mouth daily 025 2024 Discontinued(R eorder) furosemide (LASIX) 20 mg tablet Take 1 tablet (20 mg total) by mouth daily 90 tablet 3 025 2024 Discontinued acetaminophen (TYLENOL) 325 mg tablet Take 2 tablets (650 mg total) by mouth 2 (two) times a day 60 tablet 025 2024 atorvastatin (LIPITOR) 80 mg tablet Take 1 tablet (80 mg total) by mouth nightly 30 tablet 1 025 2024 Discontinued(R eorder) digoxin (LANOXIN) 62.5 mcg (0.0625 mg) tabletIndicatio ns:Ventricular Rate Control in Atrial Fibrillation Take 1 tablet (62.5 mcg total) by mouth daily 30 tablet 1 2024 Discontinued(A lternate therapy) spironolactone (ALDACTONE) 25 mg tablet Take 0.5 tablets (12.5 mg total) by mouth daily 15 tablet 1 2024 Discontinued(R eorder) metoprolol XL (TOPROL-XL) 25 mg extended release tablet Take 1 tablet (25 mg total) by mouth daily 2024 Discontinued(R eorder) Active Problems Problem Noted Date Diagnosed Date Altered mental status 03/11/2025 Cardiomyopathy 03/11/2025 Constipation 03/11/2025 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 Debility 03/11/2025 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 Insomnia 01/05/2025 Assessment & Plan (01/05/2025 3:19 AM CDT): Receiving Lunesta Dysphagia 01/05/2025 Assessment & Plan (01/19/2025 8:49 AM CDT): ROOM MANAGER saw patient on 01/09 at bedside 01/10 [...] revealed mild tracheomalacia - 01/17 transition to Monster trach - ENT to sign off - Follow [...] CI 2.5 w chest closed -ASA/statin/zetia/spirolactone daily -CLINICAL INFORMATICS PHYSICIAN - 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 Normal [...] HTN. 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 he has a metal trach (5 Monster switched to a 6 Shiley during surgery) that he maintains at home. He orders his own supplies. Previous suggestions to have evaluation for procedure for his tracheal stricture He has an appointment next week with ENT Assessment & Plan (01/18/2025 12:23 PM CDT): [...] on minimal exertion 11/19/2024 Assessment & Plan (03/25/2025 3:28 PM DEPARTMENT TRAFFIC FREIGHT ROUTER): This has not improved since his CABG Continue albuterol to be used 2 puffs every 4-6 hours as needed only I have instructed him that if this does not provide clinical benefit he should discontinue use. Recheck complete PFT, HRCT, and 6MWT Assessment & Plan (11/19/2024 4:01 PM CDT): [...] 03/19/2024 Assessment & Plan (03/19/2024 11:05 AM DEPARTMENT TRAFFIC FREIGHT ROUTER): Patient is interested in the steroid injections. Will refer him back to Orthopedics to discuss steroid injections for both of his knees Hand arthritis 03/19/2024 Assessment & Plan (03/19/2024 11:06 AM DEPARTMENT TRAFFIC FREIGHT ROUTER): Will obtain new x-rays today. Referral to ortho hand in [place]. I told him alternatively there would be Dr. Du at [facility]. Encounter for Medicare annual wellness exam 12/2023 [...] daily Assessment & Plan (07/13/2024 10:40 AM DEPARTMENT TRAFFIC FREIGHT ROUTER): Chronic problem. Currently taking prednisone 10mg every [...] alert bracelet or necklace stating you have [place]'s disease and that you take steroids. In [...] alert bracelet or necklace stating you have [place]'s disease and that you take steroids. In case of any extreme weakness, abdominal pain, diarrhea or dizziness, it is recommended for you to call an ambulance and proceed to the nearest emergency room. Assessment & Plan (07/05/2023 2:53 PM DEPARTMENT TRAFFIC FREIGHT ROUTER): Chronic problem. Currently taking prednisone 5mg twice [...] room. Assessment & Plan (05/19/2023 12:49 PM DEPARTMENT TRAFFIC FREIGHT ROUTER): Patient continuing his Prednisone and set to follow up with Endo in June. Assessment & Plan (11/18/2022 3:01 PM CDT): Chronic problem. Discussed tapering prednisone dose from 15mg total/day down to 5mg daily. Reserving 10-15mg for sick days. Will call if any difficulties with tapering. Reviewed red flags. Will check TSH, T3, T4 today. Verified that he uses [facility]. Aware to check results/results letter in [facility]. Will contact by phone if needed. It [...] alert bracelet or necklace stating you have [place]'s disease and that you take steroids. In [...] 07/04/2022 Assessment & Plan (07/05/2022 7:58 PM DEPARTMENT TRAFFIC FREIGHT ROUTER): On 12/2021 started high dose steroid due [...] tapering. Assessment & Plan (07/04/2022 4:17 PM DEPARTMENT TRAFFIC FREIGHT ROUTER): On 12/2021 started high dose steroid due [...] Cardiology Assessment & Plan (05/19/2023 12:42 PM DEPARTMENT TRAFFIC FREIGHT ROUTER): Patient continues to follow with Cardiology. Continues [...] changes. Assessment & Plan (07/05/2022 8:13 PM DEPARTMENT TRAFFIC FREIGHT ROUTER): TTE 03/2022 with LV dilation with EF [...] 09/09/2022) Assessment & Plan (07/04/2022 4:23 PM DEPARTMENT TRAFFIC FREIGHT ROUTER): TTE 03/2022 with LV dilation with EF [...] cost Assessment & Plan (07/03/2022 5:05 PM DEPARTMENT TRAFFIC FREIGHT ROUTER): TTE 03/2022 with LV dilation with EF [...] cost Assessment & Plan (04/05/2022 4:32 PM DEPARTMENT TRAFFIC FREIGHT ROUTER): Heart Failure with Reduced Ejection Fraction: EF [...] currently Assessment & Plan (04/04/2022 3:23 PM DEPARTMENT TRAFFIC FREIGHT ROUTER): Heart Failure with Reduced Ejection Fraction: EF 25% (TTE 03/2022), profile A, NYHA II, - Diuretic: None currently - Beta Jihan: Metoprolol tartrate 37.5 mg BID, will consolidate to XL prior to D/C - BRENTON/ARB/ARNI: On Entresto at home, will resume as tolerated - Device: No device currently Failure to thrive in adult 03/25/2022 Assessment & Plan (04/05/2022 4:31 PM DEPARTMENT TRAFFIC FREIGHT ROUTER): - Patient presenting with decreased PO intake, noncompliance medications, reported wt loss - RD consult, currently on TF via DHT - Swallow evaluation to remove DHT and begin oral nutrition Assessment & Plan (04/04/2022 3:20 PM DEPARTMENT TRAFFIC FREIGHT ROUTER): - Patient presenting with decreased PO intake, noncompliance medications, reported wt loss - RD consult, currently on TF via DHT Falls 03/25/2022 Assessment & Plan (04/05/2022 4:31 PM DEPARTMENT TRAFFIC FREIGHT ROUTER): - Patient lives alone with reportedly intermittent falls at home; last prior to admission without reported head trauma - Head CT unremarkable - Fall precautions, empiric coverage for Wernicke per above Assessment & Plan (04/04/2022 3:20 PM DEPARTMENT TRAFFIC FREIGHT ROUTER): - Patient lives alone with reportedly intermittent falls at home; last prior to admission without reported head trauma - Head CT unremarkable - Fall precautions, empiric coverage for Wernicke per above - PT/OT High risk medication use 03/25/2022 Atrial fibrillation 12/01/2021 Overview (12/01/2021): Added automatically from request for surgery [id number] Assessment & Plan (01/19/2025 8:45 AM CDT): [...] 01/19 Assessment & Plan (07/05/2022 8:09 PM DEPARTMENT TRAFFIC FREIGHT ROUTER): EKG on admission w/ AFL - eliquis - metop Assessment & Plan (07/04/2022 4:24 PM DEPARTMENT TRAFFIC FREIGHT ROUTER): EKG on admission w/ AFL - eliquis - metop Assessment & Plan (07/02/2022 9:24 PM DEPARTMENT TRAFFIC FREIGHT ROUTER): EKG on admission w/ AFL - eliquis - metop Assessment & Plan (04/05/2022 4:30 PM DEPARTMENT TRAFFIC FREIGHT ROUTER): Presenting with Afib with HR currently at goal < 110, episode of hypotension 03/29 with RVR requiring ICU transfer - On metoprolol tartrate 37.5 mg BID, rate controlled - Continue telemetry for now (currently rate controlled) - Theraputic lovenox Assessment & Plan (04/04/2022 3:18 PM DEPARTMENT TRAFFIC FREIGHT ROUTER): Presenting with Afib with HR currently at goal < 110, episode of hypotension 03/29 with RVR requiring ICU transfer - On metoprolol tartrate 37.5 mg BID, rate controlled - Continue telemetry for now - Theraputic lovenox Chronic HFrEF (heart failure with reduced ejection fraction) 10/22/2021 Assessment & Plan (03/25/2025 3:27 PM DEPARTMENT TRAFFIC FREIGHT ROUTER): Continue ASA, Eliquis, Statin and Zetia Continue to follow closely with cardiology, Entresto is currently on hold pending repeat Echocardiogram Assessment & Plan (01/19/2025 8:48 AM CDT): [...] function Assessment & Plan (03/28/2022 2:53 PM DEPARTMENT TRAFFIC FREIGHT ROUTER): - Recent TTE 2wks ago with EF [...] daily. Assessment & Plan (07/05/2022 8:06 PM DEPARTMENT TRAFFIC FREIGHT ROUTER): Statin Assessment & Plan (07/04/2022 4:23 PM DEPARTMENT TRAFFIC FREIGHT ROUTER): Statin Assessment & Plan (07/03/2022 5:08 PM DEPARTMENT TRAFFIC FREIGHT ROUTER): Statin Assessment & Plan (04/05/2022 4:32 PM DEPARTMENT TRAFFIC FREIGHT ROUTER): - Cont statin once able to tolerate PO Assessment & Plan (03/25/2022 11:54 PM DEPARTMENT TRAFFIC FREIGHT ROUTER): - Cont statin Hypertension 08/28/2021 Assessment & [...] Dc plavix 01/09 Eliquis on hold per KK Assessment & Plan (04/05/2022 4:32 PM DEPARTMENT TRAFFIC FREIGHT ROUTER): - Submassive PE diagnosed in 07/2021 - CT PE negative here (in setting of apixaban noncompliance) - Lovenox Assessment & Plan (04/04/2022 3:21 PM DEPARTMENT TRAFFIC FREIGHT ROUTER): - Submassive PE diagnosed in 07/2021 - CT PE negative here (in setting of apixaban noncompliance) - Lovenox Clear cell carcinoma of kidney, 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 Mccauley. Bee 2018. S/p ablation and radical nephrectomy. Completed 5 cycles of pembrolizumab -12/2021. Hx of immunotherapy neurotoxicity and prior treated with course of steroids and IVIG (12/2021, 03/2022) Assessment & Plan (07/04/2022 4:23 PM DEPARTMENT TRAFFIC FREIGHT ROUTER): Follows with Dr. Mccauley. Bee 2018. S/p ablation and radical nephrectomy. Completed 5 cycles of pembrolizumab -12/2021. 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 Mccauley. Bee 2018. S/p ablation and radical nephrectomy. Completed 5 cycles of pembrolizumab . 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 Mccauley. Dx 2018. S/p ablation and radical nephrectomy. Completed 5 cycles of pembrolizumab 3-12/2021. 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 - Continues on IVIG and solumedrol per oncology Assessment & Plan (04/04/2022 3:20 PM DEPARTMENT TRAFFIC FREIGHT ROUTER): Follows with Dr. Mccauley. Dx 2018. S/p ablation and radical nephrectomy. Completed 5 cycles of pembrolizumab 3-12/2021. 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 - Continues on IVIG and solumedrol per oncology Chronic left shoulder pain 02/18/2016 Acute renal failure superimposed on chronic kidn ey disease Assessment & Plan (07/05/2022 8:12 PM DEPARTMENT TRAFFIC FREIGHT ROUTER): Cr 1.8 (baseline 1) - euvolemic on exam without recent GI losses or poor PO intake - IVF were hold - Initially aldactone, entresto and lasix were hold. - Cr improve to 1.37. - Restarted entresto and lower dose of lasix (from 40 mg daily to 20 mg daily) Assessment & Plan (07/04/2022 4:25 PM DEPARTMENT TRAFFIC FREIGHT ROUTER): Cr 1.8 (baseline 1) - euvolemic on exam without recent GI losses or poor PO intake - Cr improve to 1.47. - would not give fluids - Hold aldactone, entresto and lasix Assessment & Plan (07/03/2022 5:08 PM DEPARTMENT TRAFFIC FREIGHT ROUTER): Cr 1.8 (baseline 1) - euvolemic on exam without recent GI losses or poor PO intake - improving without intervention - would not give fluids - Hold aldactone, entresto and lasix Assessment & Plan (04/05/2022 4:30 PM DEPARTMENT TRAFFIC FREIGHT ROUTER): - Presenting with Cr 1.81 up from baseline ~1.3 in setting of decreased PO intake, now resolved with supportive care - Avoid nephrotoxins, renal-dose meds Assessment & Plan (04/04/2022 3:18 PM DEPARTMENT TRAFFIC FREIGHT ROUTER): - Presenting with Cr 1.81 up from baseline ~1.3 in setting of decreased PO intake, now resolved with supportive care - Avoid nephrotoxins, renal-dose meds Drug reaction Neurotoxicity Assessment & Plan (07/05/2022 7:58 PM DEPARTMENT TRAFFIC FREIGHT ROUTER): 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, high dose steroids, now on pred 10 daily - On the ED receive hydrocortisone 59 ng x 3 - Steroid as mention - should not need PJP ppx on this dose - start PPI ppx Assessment & Plan (07/04/2022 4:19 PM DEPARTMENT TRAFFIC FREIGHT ROUTER): 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, high dose steroids, now on pred 10 daily - On the ED receive hydrocortisone 59 ng x 3 - Steroid as mention - should not need PJP ppx on this dose - start PPI ppx Assessment & Plan (07/03/2022 4:51 PM DEPARTMENT TRAFFIC FREIGHT ROUTER): 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 Assessment & Plan (07/04/2022 4:23 PM DEPARTMENT TRAFFIC FREIGHT ROUTER): SBP has been on the low 100s [...] lasix Assessment & Plan (07/03/2022 5:03 PM DEPARTMENT TRAFFIC FREIGHT ROUTER): SBP has been on the low 100s [...] 12/26/2024 Assessment & Plan (07/05/2022 7:54 PM DEPARTMENT TRAFFIC FREIGHT ROUTER): home metal #5 - does not use trach collar Assessment & Plan (07/04/2022 4:17 PM DEPARTMENT TRAFFIC FREIGHT ROUTER): home metal #5 - does not use trach collar Assessment & Plan (07/02/2022 10:20 PM DEPARTMENT TRAFFIC FREIGHT ROUTER): home metal #5 - does not use trach collar Shortness of breath 07/01/2022 10/14/19 23 Assessment & Plan (07/05/2022 8:13 PM DEPARTMENT TRAFFIC FREIGHT ROUTER): PHx of HFrEF (EF 20%), PE on [...] No wheezing on exam. Stress test at [facility] 2019 (media) indeterminate. May have had ischemic eval afterwards but records not available. Cardiac MRI 06/2022 w/ Dilated cardiomyopathy with markedly reduced right and left ventricular ejection fraction. No evidence of myocarditis Plan: - empiric coverage for PNM: CTX, azithro for 3 days - BCx NGTD - Resolve SOB Assessment & Plan (07/04/2022 4:19 PM DEPARTMENT TRAFFIC FREIGHT ROUTER): PHx of HFrEF (EF 20%), PE on [...] No wheezing on exam. Stress test at [facility] 2019 (media) indeterminate. May have had [...] 09/09/2022) Assessment & Plan (07/03/2022 4:48 PM DEPARTMENT TRAFFIC FREIGHT ROUTER): PHx of HFrEF (EF 20%), PE on [...] No wheezing on exam. Stress test at [facility] 2019 (media) indeterminate. May have had [...] (06/03/2022): Added automatically from request for surgery [id number] Severe malnutrition 03/26/2022 11/21/19 24 Assessment & Plan (04/05/2022 4:32 PM DEPARTMENT TRAFFIC FREIGHT ROUTER): RD following, continue TF - ROOM MANAGER to follow for continued swallow eval given risk of aspiration Assessment & Plan (04/04/2022 3:21 PM DEPARTMENT TRAFFIC FREIGHT ROUTER): RD following, continue TF - ROOM MANAGER to follow for continued swallow eval given risk of aspiration Hypercalcemia 03/25/2022 03/26/2022 Assessment & Plan (03/25/2022 11:54 PM DEPARTMENT TRAFFIC FREIGHT ROUTER): - Presume secondary to dehydration - monitor s/p IVF SIRS (systemic inflammatory response syndrome) 03/25/2022 12/07/2024 Shortness of breath 03/09/2022 03/25/20 22 Assessment & Plan (03/25/2022 11:55 PM DEPARTMENT TRAFFIC FREIGHT ROUTER): - Hypotension 12/14/2021 10/13/2022 Cor pulmonale, acute 08/20/2021 024 Postural dizziness with presyncope 08/08/2021 10/07/2021 Stage 3a chronic kidney disease 08/08/2021 10/07/2021 Tachycardia 08/08/2021 10/07/2021 Adenomatous polyp of colon 03/21/2018 0 10/13/2022 Right kidney mass 03/15/2018 10/07/2021 Impingement syndrome of left shoulder 03/22/2013 10/07/2021 Prediabetes 06/15/2011 10/07/2021 Encounters Date Type Department Care Team Description 03/29/2025 Emergency [facility] Emergency Department [address] [place] [address] 03/25/2025 11:00 AM DEPARTMENT TRAFFIC FREIGHT ROUTER Office Visit [facility] Pulmonary at [address] [place] [address] Shwetha Lowe, CUTTING TABLE OPERATOR FIRST Dyspnea on minimal exertion (Primary Dx); Chronic HFrEF (heart failure with reduced ejection fraction) (HCC); Tracheostomy dependent (HCC) 03/18/2025 Telephone [facility] Otolaryngology [facility] [place] [address] Natalie Cast MS 03/12/2025 10:30 AM CDT Office Visit [facility] Cardiology [facility] Floor 1, [address] [place] [address] Artie Henderson MD Tracheal stenosis (Primary Dx); CAD, multiple vessel; Longstanding persistent atrial fibrillation (HCC) 03/12/2025 Telephone [facility] Cardiology [facility] Floor 1, [address] [place] [address] Artie Henderson MD 03/11/2025 10:15 AM CDT Office Visit [facility] Primary Care at [address] [phone] Jeferson Elena MD Primary hypertension (Primary Dx); Screening for colon cancer; Mixed hyperlipidemia; Heart failure with reduced ejection fraction; History of pulmonary embolism; Restrictive lung disease 02/25/2025 Telephone [facility] Medical [facility] Primary Care at [address] [phone] Jeferson Elena MD Medical Question/Miscellaneo us 02/23/2025 Telephone [facility] [address] [place] [address] Marci Prasad NP 02/21/2025 9:31 AM CDT - 02/21/2025 11:59 PM CDT Hospital Encounter [facility] [address] [place] [address] Follow-up examination following surgery Discharge Disposition: Discharge to home or self care 02/21/2025 9:30 AM CDT Office Visit [facility] Cardiothoracic Surgery [address] [place] [address] [facility] 8th Floor [address] Room [address] [place] [phone] Kotkar, Parth D., MD Longstanding persistent atrial fibrillation (HCC) (Primary Dx) 02/21/2025 Orders Only [facility] Cardiothoracic Surgery [address] [facility] 8th Floor [address] Room [address] [place], [place] [id number] Parth Dalton MD Follow-up examination following surgery (Primary Dx) 02/13/2025 Telephone [facility] Cardiothoracic Surgery [address] [facility] 8th Floor [address] Room [address] [place], [place] [id number] Parth Dalton MD Symptom Based Call 02/13/2025 Telephone [facility] Primary Care at [address] [phone] Jeferson Elena MD Medical Question/Miscellaneo us 02/11/2025 Telephone [facility] Medical [facility] Primary Care at [address] [phone] Jeferson Elena MD Symptom Based Call 02/11/2025 Telephone [facility] Primary Care at [address] [phone] Jeferson Elena MD Ortho vitals 02/08/2025 10:00 AM CDT Telemedicine [facility] Primary Care at [address] [phone] Cherise Butts NP History of pulmonary embolism (Primary Dx); ASCVD (arteriosclerotic cardiovascular disease); Primary hypertension; Mixed hyperlipidemia; Hospital discharge follow-up 02/08/2025 Telephone [facility] Cardiothoracic Surgery [address] [place] [address] 8th Floor [address] Room [address] [place] [phone] Rosi Jha NP 02/06/2025 Telephone [facility] Primary Care at [address] [phone] Jeferson Elena MD TRAE Questions 02/04/2025 Orders Only [facility] Primary Care at [address] [phone] Yana Ramirez MD 01/31/2025 Orders Only [facility] Primary Care at [address] [phone] Yana Ramirez MD 01/31/2025 Telephone [facility] Primary Care at [address] [phone] Jeferson Elena MD Medical Question/Miscellaneo us 01/22/2025 Telephone [facility] Medicine [facility] [address] [place] [address] [address] [place] [address] Jayshree Khan 01/18/2025 1:24 PM CDT - 01/18/2025 11:59 PM CDT Hospital Encounter [facility] Radiology [address] [place] [address] Discharge Disposition: Discharge to home or self care 01/10/2025 3:30 PM CDT - 01/10/2025 11:59 PM CDT Hospital Encounter [facility] Radiology [address] [place] [address] Discharge Disposition: Discharge to home or self care 01/02/2025 Telephone [facility] Medicine Otolaryngology [address] [place] [address] Natalie Cast MS 12/28/2024 7:55 AM CDT Ancillary Procedure [facility] Operating Room [address] [place] [address] 12/28/2024 7:00 AM CDT - 12/28/2024 3:55 PM CDT Surgery [facility] Operating Room [address] [place] [address] Parth Dalton MD CORONARY ARTERY BYPASS GRAFT WITH PUMP, ALEX CLIP WITH 45MM ATRICLIP 12/28/2024 6:56 AM CDT Anesthesia Event [facility] Operating Room [address] [place] [address] Simon Roberts MD Shah, Eve Arana MD 12/27/2024 9:10 AM CDT Ancillary Procedure [facility] IP 1 [facility] [address] [place] [address] 12/27/2024 9:05 AM CDT Ancillary Procedure [facility]ascular Lab IP 1 [facility] [address] [place] [address] 12/26/2024 4:29 PM CDT - 01/19/2025 3:44 PM CDT Hospital Encounter [facility] [address] [place] [address] Parth Dalton MD CAD, multiple vessel (Primary Dx); Encounter for adjustment and management of unspecified implanted device; Mixed hyperlipidemia; Ischemic cardiomyopathy Discharge Disposition: Discharge to SNF from Last 3 Months Immunizations Immunization Administration [...] INGUINAL HERNIA REPAIR 08/23/2001 Right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 Modality Body, Chest N/A Computed Radiogr aphy 02/21/2025 9:48 AM CDT Impressions 02/21/2025 9:48 AM CDT Comparison is made to 01/16/2025. There is no focal pneumonic consideration, effusion, or pneumothorax. Mediastinal wires and atrial appendage clip are unchanged in position. The heart size is stable. Electronically signed by: José Miguel Shore M.D. Narrative 02/21/2025 9:48 AM CDT EXAMINATION: 2 view chest radiograph Procedure Note José Miguel Shore MD - 02/21/2025 EXAMINATION: 2 view chest radiograph IMPRESSION: Comparison is made to 01/16/2025. There is no focal pneumonic consideration, effusion, or pneumothorax. Mediastinal wires and atrial appendage clip are unchanged in position. The heart size is stable. Electronically signed by: José Miguel Shore M.D. us Parth Dalton MD IMG XR PROCEDURES Final Resul t * CT Chest PE (CTA) W Contrast [...] BLOOD ORDERABLES Final Re sult CYNTHIA MURPHY [facility] [place] [address] * (ABNORMAL) Differential, auto (01/18/2025 8:37 PM CDT) Neutrophil abs 5.65 1.50 - 6.50 K/cumm Imm gran abs 0.04 0.00 - 0.10 K/cumm [facility] Lymphocyte abs 0.38(L) 0.80 - 3.30 K/cumm [facility] Monocyte abs 0.63 0.20 - 0.80 K/cumm [facility] Eosinophil abs 0.04 0.00 - 0.50 K/cumm [facility] Basophil abs 0.03 0.00 - 0.10 K/cumm [facility] Neutrophil pct 83.5 % [facility] Comment: Interpretive Data Percent cell count reference ranges are not reported, since discordance with absolute values may lead to misinterpretation of CBC data. Current Interpretive Data was last revised on 2017. Imm gran pct 0.6 % [facility] Comment: Interpretive Data Percent cell count reference ranges are not reported, since discordance with absolute values may lead to misinterpretation of CBC data. Current Interpretive Data was last revised on 2017. Lymphocyte pct 5.6 % [facility] Comment: Interpretive Data Percent cell count reference ranges are not reported, since discordance with absolute values may lead to misinterpretation of CBC data. Current Interpretive Data was last revised on 2017. Monocyte pct 9.3 % [facility] Comment: Interpretive Data Percent cell count reference ranges are not reported, since discordance with absolute values may lead to misinterpretation of CBC data. Current Interpretive Data was last revised on 2017. Eosinophil pct 0.6 % [facility] Comment: Interpretive Data Percent cell count reference ranges are not reported, since discordance with absolute values may lead to misinterpretation of CBC data. Current Interpretive Data was last revised on 2017. Basophil pct 0.4 % [facility] Comment: Interpretive Data Percent cell count reference ranges are not reported, since discordance with absolute values may lead to misinterpretation of CBC data. Current Interpretive Data was last revised on 2017. Blood 01/18/2025 8:37 PM CDT 01/18/2025 9:32 PM CDT Rosa Beltran NP LAB BLOOD ORDERABLES Final Re sult CYNTHIA [facility] [place] [address] * (ABNORMAL) CBC with auto differential (01/18/2025 8:37 PM CDT) Pathologist [facility] WBC 6.77 3.80 - 9.90 K/cumm Hgb 8.4(L) 13.0 - 17.5 g/dL [facility] Hct 25.7(L) 38.9 - 50.3 % [facility] Plt 252 150 - 400 K/cumm [facility] MPV 10.5 9.1 - 12.3 fL [facility] RBC 2.66(L) 4.30 - 5.80 M/cumm [facility] MCV 96.6(H) 81.3 - 96.4 fL [facility] MCH 31.6 27.1 - 33.3 pg [facility] MCHC 32.7 32.3 - 35.7 g/dL [facility] RDW CV 17.0(H) 11.1 - 14.9 % [facility] RDW SD 61.1(H) 35.7 - 48.1 fL [facility] NRBC abs 0.00 0.00 - 0.01 K/cumm [facility] Blood 01/18/2025 8:37 PM CDT 01/18/2025 9:32 PM CDT Rosa Beltran NP LAB BLOOD ORDERABLES Final Re sult Performing Organization Address City/[facility] Co de Phone Number [facility] [place] [address] * Phosphorus (01/18/2025 8:37 PM CDT) Pathologist [facility] Phosphorus, pl 3.3 2.3 - 4.5 mg/dL Blood 01/18/2025 8:37 PM CDT 01/18/2025 9:32 PM CDT Rosa Beltran CUTTING TABLE OPERATOR FIRST LAB BLOOD ORDERABLES Final Re sult [facility] [place] [address] * Magnesium (01/18/2025 8:37 PM CDT) Pathologist [facility] Magnesium 2.1 1.4 - 2.5 mg/dL Blood 01/18/2025 8:37 PM CDT 01/18/2025 9:32 PM CDT Rosa Beltran NP LAB BLOOD ORDERABLES Final Re sult [facility] Department [place] [address] * (ABNORMAL) Basic metabolic panel (01/18/2025 8:37 PM CDT) [facility] Sodium 141 135 - 145 mmol/L Potassium, pl 4.7 3.3 - 4.9 mmol/L [facility] Chloride 106 97 - 110 mmol/L [facility] CO2 27 22 - 32 mmol/L [facility] Anion gap 8 2 - 15 mmol/L [facility] BUN 25 6 - 25 mg/dL [facility] Creatinine 1.52(H) 0.80 - 1.30 mg/dL [facility] Glucose 107 70 - 199 mg/dL [facility] Comment: Interpretive Data Fasting glucose >/= 126 [...] 2022. Calcium 8.1(L) 8.5 - 10.3 mg/dL [facility] Blood 01/18/2025 8:37 PM CDT 01/18/2025 9:32 PM CDT Rosa Ruby CUTTING TABLE OPERATOR FIRST LAB BLOOD ORDERABLES Final Re sult [facility] Department [place] [address] * ROOM MANAGER Evaluate and Treat (VFSS) (01/18/2025 1:33 PM [...] liquids per chart review General Information Megan Kingsleywell 01/18/25 ROOM MANAGER Received On: 01/18/25 General Observations: Pt seen [...] at 90 degrees. Consistencies Administered: Thin liquids, [place] thickened liquids, Purees, Solids Administered consistencies contain barium product. Thin Liquids: Laryngeal Penetration: None Aspiration Present: No Penetration Aspiration Scale-Thin: 1-Material does not enter airway [place] Thickened Liquids: Laryngeal Penetration: None Aspiration Present: No Penetration Aspiration Scale-[place]: 1-Material does not enter airway Purees: Laryngeal [...] treatment goals and details, if indicated. Plan ROOM MANAGER Frequency of Services during current admission: Discharge from this Service ROOM MANAGER Recommendation (Add'l Services): No further ROOM MANAGER indicated Next Visit Plan: No further ST warranted Additional Referrals: none Discharge Summary Statement If this is the last swallow therapy visit, this serves as the discharge summary. us Charissa Colvin NP ROOM MANAGER ORDERABLES Final Resul t * ROOM MANAGER Evaluation and Treatment (01/18/2025 1:33 PM CDT) [...] chart review General Information Megan Titus 01/18/25 ROOM MANAGER Received On: 01/18/25 General Observations: Pt seen [...] at 90 degrees. Consistencies Administered: Thin liquids, [place] thickened liquids, Purees, Solids Administered consistencies contain barium product. Thin Liquids: Laryngeal Penetration: None Aspiration Present: No Penetration Aspiration Scale-Thin: 1-Material does not enter airway [place] Thickened Liquids: Laryngeal Penetration: None Aspiration Present: No Penetration Aspiration Scale-[place]: 1-Material does not enter airway Purees: Laryngeal [...] Normal Levels 1 & 2 on the JIGNSEH indicate need for nonoral nutrition. Treatment Treatment was not provided this date. Please reference care plan for treatment goals and details, if indicated. Plan ROOM MANAGER Frequency of Services during current admission: Discharge from this Service ROOM MANAGER Recommendation (Add'l Services): No further ROOM MANAGER indicated Next Visit Plan: No further ST warranted Additional Referrals: none Discharge Summary Statement If this is the last swallow therapy visit, this serves as the discharge summary. us Jyotsna Salazar CUTTING TABLE OPERATOR FIRST ROOM MANAGER ORDERABLES Final Resu lt * [place] Modified [...] Inclusion of Race in Diagnosing Kidney Disease, ARINSDaiana 2020). The CKD-EPI equation should not be used for patients with unstable renal function and has not been validated in children and those over 70. Current interpretive data was last reviewed 2021. Blood 01/17/2025 7:37 PM CDT 01/17/2025 9:15 PM CDT Rosa Beltran CUTTING TABLE OPERATOR FIRST LAB BLOOD ORDERABLES Final Re sult [facility] Department [place] [address] * (ABNORMAL) Differential, auto (01/17/2025 7:37 PM CDT) Neutrophil abs 6.05 1.50 - 6.50 K/cumm Imm gran abs 0.03 0.00 - 0.10 K/cumm [facility] Lymphocyte abs 0.35(L) 0.80 - 3.30 K/cumm [facility] Monocyte abs 0.43 0.20 - 0.80 K/cumm [facility] Eosinophil abs 0.07 0.00 - 0.50 K/cumm [facility] Basophil abs 0.03 0.00 - 0.10 K/cumm [facility] Neutrophil pct 87.0 % [facility] Comment: Interpretive Data Percent cell count reference ranges are not reported, since discordance with absolute values may lead to misinterpretation of CBC data. Current Interpretive Data was last revised on 2017. Imm gran pct 0.4 % [facility] Comment: Interpretive Data Percent cell count reference ranges are not reported, since discordance with absolute values may lead to misinterpretation of CBC data. Current Interpretive Data was last revised on 2017. Lymphocyte pct 5.0 % [facility] Comment: Interpretive Data Percent cell count reference ranges are not reported, since discordance with absolute values may lead to misinterpretation of CBC data. Current Interpretive Data was last revised on 2017. Monocyte pct 6.2 % [facility] Comment: Interpretive Data Percent cell count reference ranges are not reported, since discordance with absolute values may lead to misinterpretation of CBC data. Current Interpretive Data was last revised on 2017. Eosinophil pct 1.0 % [facility] Comment: Interpretive Data Percent cell count reference ranges are not reported, since discordance with absolute values may lead to misinterpretation of CBC data. Current Interpretive Data was last revised on 2017. Basophil pct 0.4 % [facility] Comment: Interpretive Data Percent cell count reference ranges are not reported, since discordance with absolute values may lead to misinterpretation of CBC data. Current Interpretive Data was last revised on 2017. Blood 01/17/2025 7:37 PM CDT 01/17/2025 8:49 PM CDT Rosa Beltran NP LAB BLOOD ORDERABLES Final Re sult [facility] [place] [address] * (ABNORMAL) CBC with auto differential (01/17/2025 7:37 PM CDT) WBC 6.96 3.80 - 9.90 K/cumm Hgb 8.4(L) 13.0 - 17.5 g/dL [facility] Hct 24.7(L) 38.9 - 50.3 % [facility] Plt 277 150 - 400 K/cumm [facility] MPV 10.6 9.1 - 12.3 fL [facility] RBC 2.55(L) 4.30 - 5.80 M/cumm [facility] MCV 96.9(H) 81.3 - 96.4 fL [facility] MCH 32.9 27.1 - 33.3 pg [facility] MCHC 34.0 32.3 - 35.7 g/dL [facility] RDW CV 17.2(H) 11.1 - 14.9 % [facility] RDW SD 61.2(H) 35.7 - 48.1 fL [facility] NRBC abs 0.00 0.00 - 0.01 K/cumm [facility] Blood 01/17/2025 7:37 PM CDT 01/17/2025 8:49 PM CDT Rosa Beltran LAB BLOOD ORDERABLES Final Re sult Performing Organization Address [facility] [place] [address] * Type and screen (01/17/2025 7:37 PM CDT) Becca, indirect Negative ABO Rh A Positive [facility] Blood 01/17/2025 7:37 PM CDT 01/17/2025 8:36 PM CDT Narrative [facility] - 01/17/2025 9:30 PM CDT Has the patient had Daratumumab or Isatuximab in the past 6 months?->Unknown [facility] BLOOD BANK TEST ORDERABLE S Final Result Performing Organization Address [facility] [place] [address] * Phosphorus (01/17/2025 7:37 PM CDT) Phosphorus, pl 3.3 2.3 - 4.5 mg/dL Blood 01/17/2025 7:37 PM CDT 01/17/2025 9:06 PM CDT [facility]LOOD ORDERABLES Final Re sult Performing Organization Address [facility] [place] [address] * Magnesium (01/17/2025 7:37 PM CDT) Magnesium 2.2 1.4 - 2.5 mg/dL Blood 01/17/2025 7:37 PM CDT 01/17/2025 9:06 PM CDT Rosa Beltran NP LAB BLOOD ORDERABLES Final Re sult Performing Organization Address [facility] Co de Phone Number [facility] [place] [address] * (ABNORMAL) Hepatic function panel (01/17/2025 7:37 PM CDT) Bilirubin, total 0.4 0.1 - 1.2 mg/dL Bilirubin, direct 0.2 0.1 - 0.3 mg/dL [facility] Protein, pl 5.9(L) 6.5 - 8.5 g/dL [facility] Albumin 2.7(L) 3.5 - 5.0 g/dL [facility] Alk phos 80 40 - 130 Units/L [facility] ALT 18 7 - 55 Units/L [facility] AST 17 10 - 50 Units/L [facility] Blood 01/17/2025 7:37 PM CDT 01/17/2025 9:06 PM CDT Parth Dalton MD LAB BLOOD ORDERABLES Final Re sult Performing Organization Address [facility] de Phone Number [facility] [place] [address] * (ABNORMAL) Basic metabolic panel (01/17/2025 7:37 PM CDT) Sodium 135 135 - 145 mmol/L Potassium, pl 4.4 3.3 - 4.9 mmol/L [facility] Chloride 100 97 - 110 mmol/L [facility] CO2 24 22 - 32 mmol/L [facility] Anion gap 11 2 - 15 mmol/L [facility] BUN 32(H) 6 - 25 mg/dL [facility] Creatinine 1.47(H) 0.80 - 1.30 mg/dL [facility] Glucose 131 70 - 199 mg/dL [facility] Comment: Interpretive Data Fasting glucose >/= 126 [...] 2022. Calcium 7.9(L) 8.5 - 10.3 mg/dL [facility] Blood 01/17/2025 7:37 PM CDT 01/17/2025 9:06 PM CDT Rosa Beltran CUTTING TABLE OPERATOR FIRST LAB BLOOD ORDERABLES Final Re sult Performing Organization Address [facility] Co de Phone Number [facility] Department [place] [address] * Infection Prevention Blanche auris PCR, surveillance Axilla/Groin (01/17/2025 6:10 AM CDT) Pathologist [facility] Blanche auris DNA Not Detected Not Detected [facility] Comment: Interpretive Data Testing performed by [facility] Molecular Infectious Disease Laboratory using the Daquan flaquita 6800 Blanche auris assay. This assay detects DNA from Blanche auris using Real-Time PCR. This assay is laboratory developed and is not cleared by the [facility] Food and Drug Administration. The performance characteristics have been verified by the [facility] Infectious Disease Laboratory. Axilla/Groin 01/17/2025 6:10 AM CDT 01/17/2025 6:30 AM CDT Narrative [facility] - 01/17/2025 12:20 PM CDT Order placed by [facility] due to ring surveillance. Instant Order Generic Provider LAB MICROBIOLOGY - GENERAL ORDERABLES Final Result Performing Organization Address [facility] Co de Phone Number [facility] [place] [address] [facility] * Digoxin level (01/17/2025 6:10 AM CDT) [...] 6:10 AM CDT 01/17/2025 6:36 AM CDT us Marci Rater CUTTING TABLE OPERATOR FIRST LAB BLOOD ORDERABLES Final Resul t CYNTHIA [facility] [place] [address] * XR Chest Pa Lateral 2 Views [...] signed by: Lupe Garland M.D. Rosa Beltran NP IMG XR PROCEDURES [...] CDT 01/16/2025 8:01 PM CDT Rosa Beltran CUTTING TABLE OPERATOR FIRST LAB BLOOD ORDERABLES Final Re sult [facility] [place] [address] * (ABNORMAL) Differential, auto (01/16/2025 7:44 PM CDT) Neutrophil abs 6.25 1.50 - 6.50 K/cumm Imm gran abs 0.05 0.00 - 0.10 K/cumm [facility] Lymphocyte abs 0.48(L) 0.80 - 3.30 K/cumm [facility] Monocyte abs 0.58 0.20 - 0.80 K/cumm [facility] Eosinophil abs 0.16 0.00 - 0.50 K/cumm [facility] Basophil abs 0.04 0.00 - 0.10 K/cumm [facility] Neutrophil pct 82.7 % [facility] Comment: Interpretive Data Percent cell count reference ranges are not reported, since discordance with absolute values may lead to misinterpretation of CBC data. Current Interpretive Data was last revised on 2017. Imm gran pct 0.7 % [facility] Comment: Interpretive Data Percent cell count reference ranges are not reported, since discordance with absolute values may lead to misinterpretation of CBC data. Current Interpretive Data was last revised on 2017. Lymphocyte pct 6.3 % [facility] Comment: Interpretive Data Percent cell count reference ranges are not reported, since discordance with absolute values may lead to misinterpretation of CBC data. Current Interpretive Data was last revised on 2017. Monocyte pct 7.7 % [facility] Comment: Interpretive Data Percent cell count reference ranges are not reported, since discordance with absolute values may lead to misinterpretation of CBC data. Current Interpretive Data was last revised on 2017. Eosinophil pct 2.1 % [facility] Comment: Interpretive Data Percent cell count reference ranges are not reported, since discordance with absolute values may lead to misinterpretation of CBC data. Current Interpretive Data was last revised on 2017. Basophil pct 0.5 % [facility] Comment: Interpretive Data Percent cell count reference ranges are not reported, since discordance with absolute values may lead to misinterpretation of CBC data. Current Interpretive Data was last revised on 2017. Blood 01/16/2025 7:44 PM CDT 01/16/2025 8:01 PM CDT Rosa Beltran NP LAB BLOOD ORDERABLES Final Re sult [facility] [place] [address] * (ABNORMAL) CBC with auto differential (01/16/2025 7:44 PM CDT) WBC 7.56 3.80 - 9.90 K/cumm Hgb 8.3(L) 13.0 - 17.5 g/dL [facility] Hct 25.6(L) 38.9 - 50.3 % [facility] Plt 270 150 - 400 K/cumm [facility] MPV 9.9 9.1 - 12.3 fL [facility] RBC 2.65(L) 4.30 - 5.80 M/cumm [facility] MCV 96.6(H) 81.3 - 96.4 fL [facility] MCH 31.3 27.1 - 33.3 pg [facility] MCHC 32.4 32.3 - 35.7 g/dL [facility] RDW CV 16.8(H) 11.1 - 14.9 % [facility] RDW SD 59.9(H) 35.7 - 48.1 fL [facility] NRBC abs 0.00 0.00 - 0.01 K/cumm [facility] Blood 01/16/2025 7:44 PM CDT 01/16/2025 8:01 PM CDT Rosa Beltran CUTTING TABLE OPERATOR FIRST LAB BLOOD ORDERABLES Final Re sult Performing Organization Address [facility] [place] [address] * Phosphorus (01/16/2025 7:44 PM CDT) [facility] Phosphorus, pl 3.4 2.3 - 4.5 mg/dL Blood 01/16/2025 7:44 PM CDT 01/16/2025 8:01 PM CDT Rosa Beltran CUTTING TABLE OPERATOR FIRST LAB BLOOD ORDERABLES Final Re sult Performing Organization Address [facility] Co de Phone Number [facility] [place] [address] * Magnesium (01/16/2025 7:44 PM CDT) [facility] Magnesium 2.4 1.4 - 2.5 mg/dL Blood 01/16/2025 7:44 PM CDT 01/16/2025 8:01 PM CDT Rosa Beltran CUTTING TABLE OPERATOR FIRST LAB BLOOD ORDERABLES Final Re sult Performing Organization Address [facility] Co de Phone Number [facility] [place] [address] * (ABNORMAL) Basic metabolic panel (01/16/2025 7:44 PM CDT) [facility] Sodium 142 135 - 145 mmol/L Potassium, pl 4.5 3.3 - 4.9 mmol/L [facility] Chloride 107 97 - 110 mmol/L [facility] CO2 26 22 - 32 mmol/L [facility] Anion gap 9 2 - 15 mmol/L [facility] BUN 34(H) 6 - 25 mg/dL [facility] Creatinine 1.31(H) 0.80 - 1.30 mg/dL [facility] Glucose 111 70 - 199 mg/dL [facility] Comment: Interpretive Data Fasting glucose >/= 126 [...] 2022. Calcium 7.8(L) 8.5 - 10.3 mg/dL [facility] Blood 01/16/2025 7:44 PM CDT 01/16/2025 8:01 PM CDT Rosa Beltran CUTTING TABLE OPERATOR FIRST LAB BLOOD ORDERABLES Final Re sult [facility] Department [place] [address] * TRANSTHORACIC ECHO (TTE) LIMITED/FOLLOW UP W LTD DOPPLER/CF W CONTRAST (01/16/2025 5:39 PM CDT) EF Mod BP 47 % CONS SCIMAGE Anatomical Region Laterality Modality Ultrasound 01/16/2025 4:34 PM CDT Narrative 01/16/2025 6:03 PM CDT [facility] [place] [place] [address] Transthoracic Echocardiographic Report Patient Name: MEGAN TITUS G : 1950 (74y 11m) Sex: M Study Date: 01/16/2025 04:34:52 PM Ht(Inch): 70 Wt(Lb): 203.93 BSA: 2.14 Scarf And Anneal Operator: Kasey Almendarez RDCS Location: [id number] Order Provider: CHARISSA COLVIN Heart Rate: 93 BMI: 29.26 BP: 120 / 68 Ref Provider: RACHAEL COLVINI PROCEDURES: Echocardiographic Report: Limited transthoracic 2D echo [...] Note Rene Chanel MD PhD - 01/16/2025 [facility] [place] [place] [address] Transthoracic Echocardiographic Report Patient Name: MEGAN TITUS G : 1950 (74y 11m) Sex: M Study Date: 01/16/2025 04:34:52 PM Ht(Inch): 70 Wt(Lb): 203.93 BSA: 2.14 Scarf And Anneal Operator: Kasey Almendarez RDCS Location: [id number] Order Provider:CHARISSA COLVIN Heart Rate: 93 BMI: [...] * (ABNORMAL) eGFR (01/16/2025 4:23 PM CDT) Pathologist [facility] eGFR 58(L) >=60 mL/min/1. 73 m2 Comment: [...] Colvin NP LAB BLOOD ORDERABLES Final Result [facility] Department [place] [address] * (ABNORMAL) Basic metabolic panel (01/16/2025 4:23 PM CDT) [facility] Sodium 138 135 - 145 mmol/L Potassium, pl 4.8 3.3 - 4.9 mmol/L [facility] Chloride 104 97 - 110 mmol/L [facility] CO2 27 22 - 32 mmol/L [facility] Anion gap 7 2 - 15 mmol/L [facility] BUN 36(H) 6 - 25 mg/dL [facility] Creatinine 1.30 0.80 - 1.30 mg/dL [facility] Glucose 113 70 - 199 mg/dL [facility] Comment: Interpretive Data Fasting glucose >/= 126 [...] 2022. Calcium 8.0(L) 8.5 - 10.3 mg/dL [facility] Blood 01/16/2025 4:23 PM CDT 01/16/2025 5:41 PM CDT Charissa Colvin CUTTING TABLE OPERATOR FIRST LAB BLOOD ORDERABLES Final Result Performing Organization Address City/[facility]/ZIP Co de Phone Number [facility] Department [place] [address] * Potassium, whole blood (01/16/2025 4:38 AM CDT) Pathologist [facility] Potassium, bld 4.2 3.3 - 4.9 mmol/L Blood 01/16/2025 4:38 AM CDT 01/16/2025 4:48 AM CDT Rosa Beltran CUTTING TABLE OPERATOR FIRST LAB BLOOD ORDERABLES Final Re sult Performing Organization Address City/[facility]/ZIP Co de Phone Number [facility] Department [place] [employer] [place] [address] * (ABNORMAL) eGFR (01/15/2025 11:59 PM CDT) Pathologist [facility] eGFR 56(L) >=60 mL/min/1. 73 m2 Comment: [...] CDT 01/16/2025 12:31 AM CDT Gloria Ledezma LAB BLOOD ORDERABLES F inal Result Performing Organization Address [facility] Co de Phone Number [facility] [place] [employer] [place] [address] * (ABNORMAL) Creatinine (01/15/2025 11:59 PM CDT) Creatinine 1.34(H) 0.80 - 1.30 mg/dL Blood 01/15/2025 11:5 9 PM CDT 01/16/2025 12:31 AM CDT Narrative [facility] - 01/16/2025 1:47 AM CDT While on apixaban Gloria Ledezma CUTTING TABLE OPERATOR FIRST LAB BLOOD ORDERABLES F inal Result Performing Organization Address City/[facility] Co de Phone Number [facility] [place] [employer] [place] [address] * (ABNORMAL) eGFR (01/15/2025 7:47 PM CDT) [...] CDT 01/15/2025 8:25 PM CDT Rosa Beltran CUTTING TABLE OPERATOR FIRST LAB BLOOD ORDERABLES Final Re sult [facility] Department [place] [address] * (ABNORMAL) Differential, auto (01/15/2025 7:47 PM CDT) Neutrophil abs 7.63(H) 1.50 - 6.50 K/cumm Imm gran abs 0.07 0.00 - 0.10 K/cumm [facility] Lymphocyte abs 0.55(L) 0.80 - 3.30 K/cumm [facility] Monocyte abs 0.50 0.20 - 0.80 K/cumm [facility] Eosinophil abs 0.12 0.00 - 0.50 K/cumm [facility] Basophil abs 0.04 0.00 - 0.10 K/cumm [facility] Neutrophil pct 85.7 % [facility] Comment: Interpretive Data Percent cell count reference ranges are not reported, since discordance with absolute values may lead to misinterpretation of CBC data. Current Interpretive Data was last revised on 2017. Imm gran pct 0.8 % [facility] Comment: Interpretive Data Percent cell count reference ranges are not reported, since discordance with absolute values may lead to misinterpretation of CBC data. Current Interpretive Data was last revised on 2017. Lymphocyte pct 6.2 % [facility] Comment: Interpretive Data Percent cell count reference ranges are not reported, since discordance with absolute values may lead to misinterpretation of CBC data. Current Interpretive Data was last revised on 2017. Monocyte pct 5.6 % [facility] Comment: Interpretive Data Percent cell count reference ranges are not reported, since discordance with absolute values may lead to misinterpretation of CBC data. Current Interpretive Data was last revised on 2017. Eosinophil pct 1.3 % [facility] Comment: Interpretive Data Percent cell count reference ranges are not reported, since discordance with absolute values may lead to misinterpretation of CBC data. Current Interpretive Data was last revised on 2017. Basophil pct 0.4 % [facility] Comment: Interpretive Data Percent cell count reference ranges are not reported, since discordance with absolute values may lead to misinterpretation of CBC data. Current Interpretive Data was last revised on 2017. Blood 01/15/2025 7:47 PM CDT 01/15/2025 9:03 PM CDT Rosa Beltran NP LAB BLOOD ORDERABLES Final Re sult [facility] Department [place] [address] * (ABNORMAL) CBC with auto differential (01/15/2025 7:47 PM CDT) WBC 8.91 3.80 - 9.90 K/cumm Hgb 9.1(L) 13.0 - 17.5 g/dL [facility] Hct 28.6(L) 38.9 - 50.3 % [facility] Plt 301 150 - 400 K/cumm [facility] MPV 10.3 9.1 - 12.3 fL [facility] RBC 2.90(L) 4.30 - 5.80 M/cumm [facility] MCV 98.6(H) 81.3 - 96.4 fL [facility] MCH 31.4 27.1 - 33.3 pg [facility] MCHC 31.8(L) 32.3 - 35.7 g/dL [facility] RDW CV 16.9(H) 11.1 - 14.9 % [facility] RDW SD 61.0(H) 35.7 - 48.1 fL [facility] NRBC abs 0.00 0.00 - 0.01 K/cumm [facility] Blood 01/15/2025 7:47 PM CDT 01/15/2025 9:03 PM CDT Rosa Beltran CUTTING TABLE OPERATOR FIRST LAB BLOOD ORDERABLES Final Re sult Performing Organization Address City/[facility] Co de Phone Number [facility] Department [place] [address] * Phosphorus (01/15/2025 7:47 PM CDT) Phosphorus, pl 4.1 2.3 - 4.5 mg/dL Blood 01/15/2025 7:47 PM CDT 01/15/2025 8:25 PM CDT Rosa Beltran CUTTING TABLE OPERATOR FIRST LAB BLOOD ORDERABLES Final Re sult Performing Organization Address [facility] Co de Phone Number [facility] [place] [address] * Magnesium (01/15/2025 7:47 PM CDT) Magnesium 2.3 1.4 - 2.5 mg/dL Blood 01/15/2025 7:47 PM CDT 01/15/2025 8:25 PM CDT Rosa Beltran CUTTING TABLE OPERATOR FIRST LAB BLOOD ORDERABLES Final Re sult Performing Organization Address City/[facility] Co de Phone Number [facility] [place] [address] * (ABNORMAL) Basic metabolic panel (01/15/2025 7:47 PM CDT) Pathologist [facility] Sodium 137 135 - 145 mmol/L Potassium, pl 4.4 3.3 - 4.9 mmol/L [facility] Chloride 102 97 - 110 mmol/L [facility] CO2 23 22 - 32 mmol/L [facility] Anion gap 12 2 - 15 mmol/L [facility] BUN 35(H) 6 - 25 mg/dL [facility] Creatinine 1.40(H) 0.80 - 1.30 mg/dL [facility] Glucose 145 70 - 199 mg/dL [facility] Comment: Interpretive Data Fasting glucose >/= 126 [...] 2022. Calcium 8.1(L) 8.5 - 10.3 mg/dL [facility] Blood 01/15/2025 7:47 PM CDT 01/15/2025 8:25 PM CDT Rosa Beltran NP LAB BLOOD ORDERABLES Final Re sult [facility] [place] [address] * Infection Prevention Blanche auris PCR, surveillance Axilla/Groin (01/15/2025 5:51 AM CDT) Pathologist [facility] Blanche auris DNA Not Detected Not Detected [facility] Comment: Interpretive Data Testing performed by [facility] Molecular Infectious Disease Laboratory using the Daquan flaquita 6800 Blanche auris assay. This assay detects DNA from Blanche auris using Real-Time PCR. This assay is laboratory developed and is not cleared by the [facility] Food and Drug Administration. The performance characteristics have been verified by the [facility] Molecular Infectious Disease Laboratory. Axilla/Groin 01/15/2025 5:51 AM CDT 01/15/2025 6:11 AM CDT Narrative [facility] - 01/15/2025 12:39 PM CDT Order placed by [facility] due to ring surveillance. Instant Order Generic Provider LAB MICROBIOLOGY - GENERAL ORDERABLES Final Result [facility] [place] [address] [facility] * Potassium, whole blood (01/15/2025 5:51 AM CDT) Potassium, bld 4.1 3.3 - 4.9 mmol/L Blood 01/15/2025 5:51 AM CDT 01/15/2025 5:57 AM CDT Jyotsna Salazar LAB BLOOD ORDERABLES Final Result [facility] [place] [address] * (ABNORMAL) eGFR (01/14/2025 8:45 PM CDT) eGFR 56(L) >=60 mL/min/1. 73 m2 Comment: [...] NP LAB BLOOD ORDERABLES Final Re sult [facility] [place] [address] * (ABNORMAL) Differential, auto (01/14/2025 8:45 PM CDT) Neutrophil abs 7.22(H) 1.50 - 6.50 K/cumm Imm gran abs 0.08 0.00 - 0.10 K/cumm [facility] Lymphocyte abs 0.49(L) 0.80 - 3.30 K/cumm [facility] Monocyte abs 0.67 0.20 - 0.80 K/cumm [facility] Eosinophil abs 0.14 0.00 - 0.50 K/cumm [facility] Basophil abs 0.05 0.00 - 0.10 K/cumm [facility] Neutrophil pct 83.5 % [facility] Comment: Interpretive Data Percent cell count reference ranges are not reported, since discordance with absolute values may lead to misinterpretation of CBC data. Current Interpretive Data was last revised on 2017. Imm gran pct 0.9 % [facility] Comment: Interpretive Data Percent cell count reference ranges are not reported, since discordance with absolute values may lead to misinterpretation of CBC data. Current Interpretive Data was last revised on 2017. Lymphocyte pct 5.7 % [facility] Comment: Interpretive Data Percent cell count reference ranges are not reported, since discordance with absolute values may lead to misinterpretation of CBC data. Current Interpretive Data was last revised on 2017. Monocyte pct 7.7 % [facility] Comment: Interpretive Data Percent cell count reference ranges are not reported, since discordance with absolute values may lead to misinterpretation of CBC data. Current Interpretive Data was last revised on 2017. Eosinophil pct 1.6 % [facility] Comment: Interpretive Data Percent cell count reference ranges are not reported, since discordance with absolute values may lead to misinterpretation of CBC data. Current Interpretive Data was last revised on 2017. Basophil pct 0.6 % [facility] Comment: Interpretive Data Percent cell count reference ranges are not reported, since discordance with absolute values may lead to misinterpretation of CBC data. Current Interpretive Data was last revised on 2017. Blood 01/14/2025 8:45 PM CDT 01/14/2025 9:59 PM CDT Rosa Beltran CUTTING TABLE OPERATOR FIRST LAB BLOOD ORDERABLES Final Re sult [facility] [place] [address] * (ABNORMAL) CBC with auto differential (01/14/2025 8:45 PM CDT) WBC 8.65 3.80 - 9.90 K/cumm Hgb 8.9(L) 13.0 - 17.5 g/dL [facility] Hct 27.0(L) 38.9 - 50.3 % [facility] Plt 302 150 - 400 K/cumm [facility] MPV 10.1 9.1 - 12.3 fL [facility] RBC 2.81(L) 4.30 - 5.80 M/cumm [facility] MCV 96.1 81.3 - 96.4 fL [facility] MCH 31.7 27.1 - 33.3 pg [facility] MCHC 33.0 32.3 - 35.7 g/dL [facility] RDW CV 17.2(H) 11.1 - 14.9 % [facility] RDW SD 61.4(H) 35.7 - 48.1 fL [facility] NRBC abs 0.00 0.00 - 0.01 K/cumm [facility] Blood 01/14/2025 8:45 PM CDT 01/14/2025 9:59 PM CDT Rosa Beltran NP LAB BLOOD ORDERABLES Final Re sult Performing Organization Address City/[facility] [place] [address] * Type and screen (01/14/2025 8:45 PM CDT) ABO Rh A Positive Becca, indirect Negative [facility] Blood 01/14/2025 8:45 PM CDT 01/14/2025 10:10 PM CDT Narrative [facility] - 01/14/2025 11:33 PM CDT Has the patient had Daratumumab or Isatuximab in the past 6 months?->Unknown Rosa Beltran LAB BLOOD BANK TEST ORDERABLE S Final Result Performing Organization Address [facility] [place] [address] * Phosphorus (01/14/2025 8:45 PM CDT) Phosphorus, pl 4.0 2.3 - 4.5 mg/dL Blood 01/14/2025 8:45 PM CDT 01/14/2025 9:57 PM CDT Rosa Beltran CUTTING TABLE OPERATOR FIRST LAB BLOOD ORDERABLES Final Re sult Performing Organization Address City/[facility] [place] [address] * Magnesium (01/14/2025 8:45 PM CDT) Magnesium 2.2 1.4 - 2.5 mg/dL Blood 01/14/2025 8:45 PM CDT 01/14/2025 9:57 PM CDT Rosa Beltran NP LAB BLOOD ORDERABLES Final Re sult Performing Organization Address [facility] Co de Phone Number [facility] [place] [address] * (ABNORMAL) Hepatic function panel (01/14/2025 8:45 PM CDT) Bilirubin, total 0.5 0.1 - 1.2 mg/dL Bilirubin, direct 0.2 0.1 - 0.3 mg/dL [facility] Protein, pl 5.8(L) 6.5 - 8.5 g/dL [facility] Albumin 2.9(L) 3.5 - 5.0 g/dL [facility] Alk phos 73 40 - 130 Units/L [facility] ALT 33 7 - 55 Units/L [facility] AST 19 10 - 50 Units/L [facility] Blood 01/14/2025 8:45 PM CDT 01/14/2025 9:57 PM CDT Parth Dalton MD LAB BLOOD ORDERABLES Final Re sult Performing Organization Address [facility] de Phone Number [facility] [place] [address] * (ABNORMAL) Basic metabolic panel (01/14/2025 8:45 PM CDT) Sodium 137 135 - 145 mmol/L Potassium, pl 4.5 3.3 - 4.9 mmol/L [facility] Chloride 101 97 - 110 mmol/L [facility] CO2 25 22 - 32 mmol/L [facility] Anion gap 11 2 - 15 mmol/L [facility] BUN 39(H) 6 - 25 mg/dL [facility] Creatinine 1.34(H) 0.80 - 1.30 mg/dL [facility] Glucose 120 70 - 199 mg/dL [facility] Comment: Interpretive Data Fasting glucose >/= 126 [...] 2022. Calcium 8.0(L) 8.5 - 10.3 mg/dL [facility] Blood 01/14/2025 8:45 PM CDT 01/14/2025 9:57 PM CDT Rosa Beltran NP LAB BLOOD ORDERABLES Final Re sult [facility] [place] [address] * XR Chest 1 View (01/14/2025 6:52 [...] by: Magnus Farah M.D. us Marci Rater CUTTING TABLE OPERATOR FIRST IMG XR PROCEDURES Final Result * (ABNORMAL) [...] NP LAB BLOOD ORDERABLES Final Re sult [facility] [place] [address] * (ABNORMAL) Differential, auto (01/13/2025 10:00 PM CDT) Neutrophil abs 7.65(H) 1.50 - 6.50 K/cumm Imm gran abs 0.09 0.00 - 0.10 K/cumm [facility] Lymphocyte abs 0.64(L) 0.80 - 3.30 K/cumm [facility] Monocyte abs 0.87(H) 0.20 - 0.80 K/cumm [facility] Eosinophil abs 0.14 0.00 - 0.50 K/cumm [facility] Basophil abs 0.04 0.00 - 0.10 K/cumm [facility] Neutrophil pct 81.1 % [facility] Comment: Interpretive Data Percent cell count reference ranges are not reported, since discordance with absolute values may lead to misinterpretation of CBC data. Current Interpretive Data was last revised on 2017. Imm gran pct 1.0 % [facility] Comment: Interpretive Data Percent cell count reference ranges are not reported, since discordance with absolute values may lead to misinterpretation of CBC data. Current Interpretive Data was last revised on 2017. Lymphocyte pct 6.8 % [facility] Comment: Interpretive Data Percent cell count reference ranges are not reported, since discordance with absolute values may lead to misinterpretation of CBC data. Current Interpretive Data was last revised on 2017. Monocyte pct 9.2 % [facility] Comment: Interpretive Data Percent cell count reference ranges are not reported, since discordance with absolute values may lead to misinterpretation of CBC data. Current Interpretive Data was last revised on 2017. Eosinophil pct 1.5 % [facility] Comment: Interpretive Data Percent cell count reference ranges are not reported, since discordance with absolute values may lead to misinterpretation of CBC data. Current Interpretive Data was last revised on 2017. Basophil pct 0.4 % [facility] Comment: Interpretive Data Percent cell count reference ranges are not reported, since discordance with absolute values may lead to misinterpretation of CBC data. Current Interpretive Data was last revised on 2017. Blood 01/13/2025 10:0 0 PM CDT 01/13/2025 10:43 PM CDT Rosa Beltran NP LAB BLOOD ORDERABLES Final Re sult [facility] [place] [address] * (ABNORMAL) CBC with auto differential (01/13/2025 10:00 PM CDT) WBC 9.43 3.80 - 9.90 K/cumm Hgb 9.3(L) 13.0 - 17.5 g/dL [facility] Hct 27.4(L) 38.9 - 50.3 % [facility] Plt 319 150 - 400 K/cumm [facility] MPV 10.2 9.1 - 12.3 fL [facility] RBC 2.88(L) 4.30 - 5.80 M/cumm [facility] MCV 95.1 81.3 - 96.4 fL [facility] MCH 32.3 27.1 - 33.3 pg [facility] MCHC 33.9 32.3 - 35.7 g/dL [facility] RDW CV 17.7(H) 11.1 - 14.9 % [facility] RDW SD 61.7(H) 35.7 - 48.1 fL [facility] NRBC abs 0.00 0.00 - 0.01 K/cumm [facility] Blood 01/13/2025 10:0 0 PM CDT 01/13/2025 10:43 PM CDT Rosa Beltran CUTTING TABLE OPERATOR FIRST LAB BLOOD ORDERABLES Final Re sult Performing Organization Address [facility] Co de Phone Number [facility] [place] [address] * (ABNORMAL) Phosphorus (01/13/2025 10:00 PM CDT) Pathologist [facility] Phosphorus, pl 4.8(H) 2.3 - 4.5 mg/dL Blood 01/13/2025 10:0 0 PM CDT 01/13/2025 10:43 PM CDT Rosa Beltran CUTTING TABLE OPERATOR FIRST LAB BLOOD ORDERABLES Final Re sult Performing Organization Address [facility] de Phone Number [facility] [place] [address] * Magnesium (01/13/2025 10:00 PM CDT) [facility] Magnesium 2.1 1.4 - 2.5 mg/dL Blood 01/13/2025 10:0 0 PM CDT 01/13/2025 10:43 PM CDT Rosa Beltran CUTTING TABLE OPERATOR FIRST LAB BLOOD ORDERABLES Final Re sult Performing Organization Address [facility] de Phone Number [facility] [place] [address] * (ABNORMAL) Basic metabolic panel (01/13/2025 10:00 PM CDT) [facility] Sodium 139 135 - 145 mmol/L Potassium, pl 4.8 3.3 - 4.9 mmol/L [facility] Chloride 102 97 - 110 mmol/L [facility] CO2 26 22 - 32 mmol/L [facility] Anion gap 11 2 - 15 mmol/L [facility] BUN 42(H) 6 - 25 mg/dL [facility] Creatinine 1.43(H) 0.80 - 1.30 mg/dL [facility] Glucose 86 70 - 199 mg/dL [facility] Comment: Interpretive Data Fasting glucose >/= 126 [...] 2022. Calcium 8.4(L) 8.5 - 10.3 mg/dL [facility] Blood 01/13/2025 10:0 0 PM CDT 01/13/2025 10:43 PM CDT Rosa Beltran NP LAB BLOOD ORDERABLES Final Re sult Performing Organization Address City/[facility]/ZIP Co de Phone Number [facility] Department [place] [employer] [place] [address] * Potassium, whole blood (01/13/2025 6:49 AM CDT) Potassium, bld 4.5 3.3 - 4.9 mmol/L Blood 01/13/2025 6:49 AM CDT 01/13/2025 6:56 AM CDT Parth Dalton MD LAB BLOOD ORDERABLES Final Re sult [facility] [place] [employer] [place] [address] * Lactate, whole blood (01/13/2025 6:49 AM CDT) Lactate, bld 0.9 0.7 - 2.0 mmol/L Blood 01/13/2025 6:49 AM CDT 01/13/2025 6:56 AM CDT Rosa Beltran CUTTING TABLE OPERATOR FIRST LAB BLOOD ORDERABLES Final Re sult [facility] [place] [address] * (ABNORMAL) CBC without differential (01/13/2025 6:49 AM CDT) [facility] WBC 7.74 3.80 - 9.90 K/cumm Hgb 10.1(L) 13.0 - 17.5 g/dL [facility] Hct 30.4(L) 38.9 - 50.3 % [facility] Plt 291 150 - 400 K/cumm [facility] MPV 9.8 9.1 - 12.3 fL [facility] RBC 3.17(L) 4.30 - 5.80 M/cumm [facility] MCV 95.9 81.3 - 96.4 fL [facility] Comment:MCV delta due to beau arent blood transfusion. MCH 31.9 27.1 - 33.3 pg [facility] MCHC 33.2 32.3 - 35.7 g/dL [facility] RDW CV 18.1(H) 11.1 - 14.9 % [facility] RDW SD 64.9(H) 35.7 - 48.1 fL [facility] NRBC abs 0.00 0.00 - 0.01 K/cumm [facility] Blood 01/13/2025 6:49 AM CDT 01/13/2025 6:56 AM CDT Narrative [facility] - 01/13/2025 7:26 AM CDT 1 hour after transfusion of red blood cells is complete Rosa Beltran CUTTING TABLE OPERATOR FIRST LAB BLOOD ORDERABLES Final Re sult Performing Organization Address City/[facility]/ZIP Co de Phone Number [facility] [place] [address] * Transfuse RBC (01/13/2025 4:01 AM CDT) Blood Rosa Beltran CUTTING TABLE OPERATOR FIRST BLOOD TRANSFUSION ORDERABLES Final Result CYNTHIA MURPHY Fernanda [facility] [place] [address] * (ABNORMAL) Aerobic culture and gram stain Tracheal aspirate Tracheal (01/13/2025 2:28 AM CDT) Direct Specimen Exam Stain: Abundant polymorphonuclear leukocytes seen. Abundant squamous epithelial cells seen indicating excessive oral pharyngeal contamination Abundant mixed bacterial katja seen on Gram stain. Report Final Report: Greater than or equal to 100,000 colonies/ml of Stenotrophomonas maltophilia Plus growth of clinically insignificant bacterial katja. (.) [facility] Organism STENOTROPHOMONAS MALTOPHILIA [facility] Organism PLUS GROWTH OF CLINICALLY INSIGNIFICANT KATJA. [facility] Tracheal aspirate (Tracheal) 01/13/2025 2:28 AM CDT 01/13/2025 3:35 AM CDT Narrative [facility] - 01/15/2025 2:01 PM CDT Testing performed by [facility] ([phone]) Specimens submitted from normally sterile body sites [...] OR DERABLES Final Result Performing Organization Address City/[facility]/ZIP Co de Phone Number CYNTHIA MURPHY One [facility] [place] [address] * Blood culture Blood (01/13/2025 2:18 AM [...] characteristics have been verified by the [facility]. For questions about this culture, contact the Microbiology Laboratory at [phone]. Interpretive data was last revised on 24. us Rosa Beltran NP LAB MICROBIOLOGY - GENERAL OR DERABLES Final Result CYNTHIA MURPHY One [facility] [place] [address] * Blood culture Blood (01/13/2025 2:18 AM CDT) Report Final Report: No growth Blood 01/13/2025 2:18 AM CDT 01/13/2025 2:43 AM CDT Myranda CYNTHIA MURPHY - 01/17/2025 7:01 AM CDT [...] characteristics have been verified by the [facility]. For questions about this culture, contact the Microbiology Laboratory at [phone]. Interpretive data was last revised on 24. Rosa Beltran NP LAB MICROBIOLOGY - GENERAL OR DERABLES Final Result [facility] Department [place] [employer] [place] [address] * Transfuse RBC (01/13/2025 12:41 AM CDT) Blood Rosa Beltran NP BLOOD TRANSFUSION ORDERABLES Final Result CYNTHIA [facility] [place] [address] * CT Chest Abdomen Pelvis WO Contrast [...] it. Electronically signed by: Mundo Zhou M.D. Rosa Beltran NP IMG CT PROCEDURES Final Resul t * Prepare RBC: 1 Units (01/12/2025 10:53 PM CDT) Product code [id number] Unit Number [id number] Q CERTARIK [facility] Product Blood Type APOS CERNER BJ Dispense Status PRESUMED TRANSFUSED CERNER BJ Blood 01/12/2025 10:5 3 PM CDT 01/12/2025 10:53 PM CDT Narrative CERNER BJ - 01/13/2025 4:01 PM CDT Are special requirements needed? (All products are leukoreduced and CMV- safe)- >No Date required:-20250112 LRRBC # of [id number]-[id number]-[id number] Reasons:-Cardiovascular disease, Hgb <8 g/dL} Rosa Beltran NP BLOOD BANK PRODUCT ORDERABLES Final Result CYNTHIA [facility] [place] [address] * Prepare RBC: 1 Units (01/12/2025 8:57 PM CDT) Product code [id number] Unit Number [id number] CERNER [facility] Product Blood Type APOS CERNER BJ Dispense Status PRESUMED TRANSFUSED CERNER BJ Blood 01/12/2025 8:57 PM CDT 01/12/2025 8:58 PM CDT Narrative CERNER BJ - 01/13/2025 4:01 PM CDT Are special requirements needed? (All products are leukoreduced and CMV- safe)- >No Date required:-20250112 LRRBC # of [id number] Reasons:-Cardiovascular disease, Hgb <8 g/dL} Rosa Beltran NP BLOOD BANK PRODUCT ORDERABLES Final Result Performing Organization Address City/[facility]/ZIP Co de Phone Number [facility] [place] [address] * Infection Prevention Blanche auris PCR, surveillance Axilla/Groin (01/12/2025 6:27 PM CDT) Pathologist [facility] Blanche auris DNA Not Detected Not Detected [facility] Comment: Interpretive Data Testing performed by [facility] Molecular Infectious Disease Laboratory using the Daquan flaquita 6800 Blanche auris assay. This assay detects DNA from Blanche auris using Real-Time PCR. This assay is laboratory developed and is not cleared by the [facility] Food and Drug Administration. The performance characteristics have been verified by the [facility] Molecular Infectious Disease Laboratory. Axilla/Groin 01/12/2025 6:27 PM CDT 01/12/2025 6:35 PM CDT Narrative [facility] - 01/13/2025 12:31 PM CDT Order placed by [facility] due to ring surveillance. Instant Order Generic Provider LAB MICROBIOLOGY - GENERAL ORDERABLES Final Result Performing Organization Address City/[facility] Co de Phone Number [facility] [place] [address] [facility] * (ABNORMAL) eGFR (01/12/2025 6:27 PM CDT) Pathologist [facility] eGFR 50(L) >=60 mL/min/1. 73 m2 Comment: [...] NP LAB BLOOD ORDERABLES Final Re sult [facility] One [facility] [place] [address] * (ABNORMAL) Differential, auto (01/12/2025 6:27 PM CDT) Neutrophil abs 8.03(H) 1.50 - 6.50 K/cumm Imm gran abs 0.12(H) 0.00 - 0.10 K/cumm [facility] Lymphocyte abs 0.72(L) 0.80 - 3.30 K/cumm [facility] Monocyte abs 0.27 0.20 - 0.80 K/cumm [facility] Eosinophil abs 0.13 0.00 - 0.50 K/cumm [facility] Basophil abs 0.04 0.00 - 0.10 K/cumm [facility] Neutrophil pct 86.3 % [facility] Comment: Interpretive Data Percent cell count reference ranges are not reported, since discordance with absolute values may lead to misinterpretation of CBC data. Current Interpretive Data was last revised on 2017. Imm gran pct 1.3 % [facility] Comment: Interpretive Data Percent cell count reference ranges are not reported, since discordance with absolute values may lead to misinterpretation of CBC data. Current Interpretive Data was last revised on 2017. Lymphocyte pct 7.7 % [facility] Comment: Interpretive Data Percent cell count reference ranges are not reported, since discordance with absolute values may lead to misinterpretation of CBC data. Current Interpretive Data was last revised on 2017. Monocyte pct 2.9 % [facility] Comment: Interpretive Data Percent cell count reference ranges are not reported, since discordance with absolute values may lead to misinterpretation of CBC data. Current Interpretive Data was last revised on 2017. Eosinophil pct 1.4 % [facility] Comment: Interpretive Data Percent cell count reference ranges are not reported, since discordance with absolute values may lead to misinterpretation of CBC data. Current Interpretive Data was last revised on 2017. Basophil pct 0.4 % [facility] Comment: Interpretive Data Percent cell count reference ranges are not reported, since discordance with absolute values may lead to misinterpretation of CBC data. Current Interpretive Data was last revised on 2017. Blood 01/12/2025 6:27 PM CDT 01/12/2025 6:56 PM CDT Rosa Beltran NP LAB BLOOD ORDERABLES Final Re sult [facility] One [facility] [place] [address] * (ABNORMAL) CBC with auto differential (01/12/2025 6:27 PM CDT) WBC 9.31 3.80 - 9.90 K/cumm Hgb 8.0(L) 13.0 - 17.5 g/dL [facility] Hct 24.4(L) 38.9 - 50.3 % [facility] Plt 351 150 - 400 K/cumm [facility] MPV 10.0 9.1 - 12.3 fL [facility] RBC 2.40(L) 4.30 - 5.80 M/cumm [facility] MCV 101.7(H) 81.3 - 96.4 fL [facility] MCH 33.3 27.1 - 33.3 pg [facility] MCHC 32.8 32.3 - 35.7 g/dL [facility] RDW CV 13.9 11.1 - 14.9 % [facility] RDW SD 51.2(H) 35.7 - 48.1 fL [facility] NRBC abs 0.02(H) 0.00 - 0.01 K/cumm [facility] Blood 01/12/2025 6:27 PM CDT 01/12/2025 6:56 PM CDT Rosa Beltran CUTTING TABLE OPERATOR FIRST LAB BLOOD ORDERABLES Final Re sult Performing Organization Address City/[facility]/[place] [address] * (ABNORMAL) Phosphorus (01/12/2025 6:27 PM CDT) Phosphorus, pl 5.2(H) 2.3 - 4.5 mg/dL Blood 01/12/2025 6:27 PM CDT 01/12/2025 6:56 PM CDT Rosa Beltran CUTTING TABLE OPERATOR FIRST LAB BLOOD ORDERABLES Final Re sult Performing Organization Address [facility] Co de Phone Number [facility] [employer] [place] [address] * Magnesium (01/12/2025 6:27 PM CDT) Pathologist [facility] Magnesium 2.0 1.4 - 2.5 mg/dL Blood 01/12/2025 6:27 PM CDT 01/12/2025 6:56 PM CDT Rosa Beltran CUTTING TABLE OPERATOR FIRST LAB BLOOD ORDERABLES Final Re sult Performing Organization Address City/[facility]/ZIP Co de Phone Number [facility] [place] [address] * (ABNORMAL) Basic metabolic panel (01/12/2025 6:27 PM CDT) [facility] Sodium 140 135 - 145 mmol/L Potassium, pl 5.0(H) 3.3 - 4.9 mmol/L [facility] Chloride 103 97 - 110 mmol/L [facility] CO2 27 22 - 32 mmol/L [facility] Anion gap 10 2 - 15 mmol/L [facility] BUN 46(H) 6 - 25 mg/dL [facility] Creatinine 1.46(H) 0.80 - 1.30 mg/dL [facility] Glucose 150 70 - 199 mg/dL [facility] Comment: Interpretive Data Fasting glucose >/= 126 [...] 2022. Calcium 9.4 8.5 - 10.3 mg/dL [facility] Blood 01/12/2025 6:27 PM CDT 01/12/2025 6:56 PM CDT Rosa Beltran NP LAB BLOOD ORDERABLES Final Re sult [facility] One [facility] [place] [address] * (ABNORMAL) CBC without differential (01/12/2025 5:03 AM CDT) [facility] WBC 8.18 3.80 - 9.90 K/cumm Hgb 7.9(L) 13.0 - 17.5 g/dL [facility] Hct 24.1(L) 38.9 - 50.3 % [facility] Plt 355 150 - 400 K/cumm [facility] MPV 10.0 9.1 - 12.3 fL [facility] RBC 2.37(L) 4.30 - 5.80 M/cumm [facility] MCV 101.7(H) 81.3 - 96.4 fL [facility] MCH 33.3 27.1 - 33.3 pg [facility] MCHC 32.8 32.3 - 35.7 g/dL [facility] RDW CV 14.3 11.1 - 14.9 % [facility] RDW SD 53.0(H) 35.7 - 48.1 fL [facility] NRBC abs 0.00 0.00 - 0.01 K/cumm [facility] Blood 01/12/2025 5:03 AM CDT 01/12/2025 5:33 AM CDT Rosa Beltran NP LAB BLOOD ORDERABLES Final Re sult [facility] One [facility] [place] [address] * eGFR (01/11/2025 6:25 PM CDT) eGFR [...] 6:25 PM CDT 01/11/2025 7:04 PM CDT Rosa Beltran NP LAB BLOOD ORDERABLES Final Re sult [facility] One [facility] [place] [address] * (ABNORMAL) Differential, auto (01/11/2025 6:25 PM CDT) Neutrophil abs 7.02(H) 1.50 - 6.50 K/cumm Imm gran abs 0.16(H) 0.00 - 0.10 K/cumm CERNER [facility] Lymphocyte abs 0.49(L) 0.80 - 3.30 K/cumm [facility] Monocyte abs 0.38 0.20 - 0.80 K/cumm [facility] Eosinophil abs 0.12 0.00 - 0.50 K/cumm [facility] Basophil abs 0.03 0.00 - 0.10 K/cumm [facility] Neutrophil pct 85.5 % [facility] Comment: Interpretive Data Percent cell count reference ranges are not reported, since discordance with absolute values may lead to misinterpretation of CBC data. Current Interpretive Data was last revised on 2017. Imm gran pct 2.0 % [facility] Comment: Interpretive Data Percent cell count reference ranges are not reported, since discordance with absolute values may lead to misinterpretation of CBC data. Current Interpretive Data was last revised on 2017. Lymphocyte pct 6.0 % [facility] Comment: Interpretive Data Percent cell count reference ranges are not reported, since discordance with absolute values may lead to misinterpretation of CBC data. Current Interpretive Data was last revised on 2017. Monocyte pct 4.6 % [facility] Comment: Interpretive Data Percent cell count reference ranges are not reported, since discordance with absolute values may lead to misinterpretation of CBC data. Current Interpretive Data was last revised on 2017. Eosinophil pct 1.5 % [facility] Comment: Interpretive Data Percent cell count reference ranges are not reported, since discordance with absolute values may lead to misinterpretation of CBC data. Current Interpretive Data was last revised on 2017. Basophil pct 0.4 % [facility] Comment: Interpretive Data Percent cell count reference ranges are not reported, since discordance with absolute values may lead to misinterpretation of CBC data. Current Interpretive Data was last revised on 2017. Blood 01/11/2025 6:25 PM CDT 01/11/2025 6:53 PM CDT Rosa Beltran NP LAB BLOOD ORDERABLES Final Re sult [facility] One [facility] [place] [address] * (ABNORMAL) CBC with auto differential (01/11/2025 6:25 PM CDT) WBC 8.20 3.80 - 9.90 K/cumm Hgb 7.2(L) 13.0 - 17.5 g/dL [facility] Hct 22.2(L) 38.9 - 50.3 % [facility] Plt 301 150 - 400 K/cumm [facility] MPV 9.7 9.1 - 12.3 fL [facility] RBC 2.13(L) 4.30 - 5.80 M/cumm [facility] MCV 104.2(H) 81.3 - 96.4 fL [facility] MCH 33.8(H) 27.1 - 33.3 pg [facility] MCHC 32.4 32.3 - 35.7 g/dL [facility] RDW CV 14.2 11.1 - 14.9 % [facility] RDW SD 53.7(H) 35.7 - 48.1 fL [facility] NRBC abs 0.00 0.00 - 0.01 K/cumm [facility] Blood 01/11/2025 6:25 PM CDT 01/11/2025 6:53 PM CDT Rosa Beltran NP LAB BLOOD ORDERABLES Final Re sult Performing Organization Address [facility] de Phone Number [facility] [place] [address] * Type and screen (01/11/2025 6:25 PM CDT) ABO Rh A Positive Becca, indirect Negative [facility] Blood 01/11/2025 6:25 PM CDT 01/11/2025 6:53 PM CDT Narrative [facility] - 01/11/2025 7:54 PM CDT Has the patient had Daratumumab or Isatuximab in the past 6 months?->Unknown Rosa Beltran NP LAB BLOOD BANK TEST ORDERABLE S Final Result Performing Organization Address [facility] de Phone Number [facility] [place] [address] * Phosphorus (01/11/2025 6:25 PM CDT) Phosphorus, pl 4.1 2.3 - 4.5 mg/dL Blood 01/11/2025 6:25 PM CDT 01/11/2025 6:50 PM CDT Rosa Beltran NP LAB BLOOD ORDERABLES Final Re sult Performing Organization Address [facility] de Phone Number [facility] [place] [address] * (ABNORMAL) Magnesium (01/11/2025 6:25 PM CDT) Magnesium 4.2(H) 1.4 - 2.5 mg/dL Blood 01/11/2025 6:25 PM CDT 01/11/2025 6:50 PM CDT Rosa Beltran NP LAB BLOOD ORDERABLES Final Re sult Performing Organization Address [facility] Co de Phone Number [facility] [place] [address] * (ABNORMAL) Hepatic function panel (01/11/2025 6:25 PM CDT) Pathologist [facility] Bilirubin, total 0.4 0.1 - 1.2 mg/dL Bilirubin, direct <0.2 0.1 - 0.3 mg/dL [facility] Protein, pl 5.6(L) 6.5 - 8.5 g/dL [facility] Albumin 2.7(L) 3.5 - 5.0 g/dL [facility] Alk phos 61 40 - 130 Units/L [facility] ALT 63(H) 7 - 55 Units/L [facility] AST 41 10 - 50 Units/L [facility] Blood 01/11/2025 6:25 PM CDT 01/11/2025 6:50 PM CDT Parth Dalton MD LAB BLOOD ORDERABLES Final Re sult Performing Organization Address [facility] de Phone Number [facility] [place] [address] * (ABNORMAL) Basic metabolic panel (01/11/2025 6:25 PM CDT) Pathologist [facility] Sodium 141 135 - 145 mmol/L Potassium, pl 4.4 3.3 - 4.9 mmol/L [facility] Chloride 110 97 - 110 mmol/L [facility] CO2 25 22 - 32 mmol/L [facility] Anion gap 6 2 - 15 mmol/L [facility] BUN 47(H) 6 - 25 mg/dL [facility] Creatinine 1.23 0.80 - 1.30 mg/dL [facility] Glucose 136 70 - 199 mg/dL [facility] Comment: Interpretive Data Fasting glucose >/= 126 [...] 8.5 - 10.3 mg/dL CYNTHIA MURPHY Blood 01/11/2025 6:25 PM CDT 01/11/2025 6:50 PM CDT Rosa Beltran NP LAB BLOOD ORDERABLES Final Re sult CYNTHIA MURPHY One [facility] [place] [address] * XR Chest 1 View (01/11/2025 5:30 PM CDT) Anatomical Region Laterality Modality Body, Chest N/A Computed Radiogr aphy 01/12/2025 6:02 AM CDT Impressions 01/12/2025 6:02 AM CDT Comparison is made to prior chest radiograph dated 01/10/2025. Sternal plates are unchanged. A feeding tube courses caudally below the diaphragm, beyond the [id number]. Tip of right peripherally inserted central venous [...] courses caudally below the diaphragm, beyond the [id number]. Tip of right peripherally inserted central venous catheter terminates in the superior cavoatrial junction. There is a left atrial appendage clip. No definite pneumothorax is identified. There is mild bibasilar atelectasis. Lung volumes are small. Stable heart size. Electronically signed by: Lupe Garland M.D. us Marsha Villarreal NP IMG XR PROCEDURES Final Resul t [...] Electronically signed by: Axel Jacob M.D. us Marsha Villarreal NP IMG XR PROCEDURES Final Resul t * POCT glucose (01/11/2025 11:38 AM CDT) Glucose, POC 153 70 - 199 mg/dL Blood 01/11/2025 11:3 8 AM CDT 01/11/2025 11:38 AM CDT Parth Dalton MD LAB POCT ORDERABLES - DEVICE Final Result Performing Organization Address [facility] Co de Phone Number [facility] [employer] [place] [address] * POCT glucose (01/11/2025 7:52 AM CDT) Glucose, POC 110 70 - 199 mg/dL Blood 01/11/2025 7:52 AM CDT 01/11/2025 7:52 AM CDT Parth Dalton MD LAB POCT ORDERABLES - DEVICE Final Result Performing Organization Address [facility] de Phone Number [facility] [employer] [place] [address] * POCT glucose (01/11/2025 4:11 AM CDT) Glucose, POC 107 70 - 199 mg/dL Blood 01/11/2025 4:11 AM CDT 01/11/2025 4:11 AM CDT Parth Dalton MD LAB POCT ORDERABLES - DEVICE Final Result Performing Organization Address City/[facility] Co de Phone Number [facility] [employer] [place] [address] * POCT glucose (01/11/2025 12:26 AM CDT) Glucose, POC 108 70 - 199 mg/dL Blood 01/11/2025 12:2 6 AM CDT 01/11/2025 12:26 AM CDT Parth Dalton MD LAB POCT ORDERABLES - DEVICE Final Result Performing Organization Address City/[facility]/ZIP Co de Phone [facility] [place] [address] * (ABNORMAL) eGFR (01/10/2025 10:47 PM CDT) [...] LAB BLOOD ORDERABLES Final Re sult [facility] [place] [address] * (ABNORMAL) Differential, auto (01/10/2025 10:47 PM CDT) Neutrophil abs 7.14(H) 1.50 - 6.50 K/cumm Imm gran abs 0.32(H) 0.00 - 0.10 K/cumm [facility] Lymphocyte abs 0.75(L) 0.80 - 3.30 K/cumm [facility] Monocyte abs 0.61 0.20 - 0.80 K/cumm [facility] Eosinophil abs 0.17 0.00 - 0.50 K/cumm [facility] Basophil abs 0.04 0.00 - 0.10 K/cumm [facility] Neutrophil pct 79.1 % [facility] Comment: Interpretive Data Percent cell count reference ranges are not reported, since discordance with absolute values may lead to misinterpretation of CBC data. Current Interpretive Data was last revised on 2017. Imm gran pct 3.5 % [facility] Comment: Interpretive Data Percent cell count reference ranges are not reported, since discordance with absolute values may lead to misinterpretation of CBC data. Current Interpretive Data was last revised on 2017. Lymphocyte pct 8.3 % [facility] Comment: Interpretive Data Percent cell count reference ranges are not reported, since discordance with absolute values may lead to misinterpretation of CBC data. Current Interpretive Data was last revised on 2017. Monocyte pct 6.8 % [facility] Comment: Interpretive Data Percent cell count reference ranges are not reported, since discordance with absolute values may lead to misinterpretation of CBC data. Current Interpretive Data was last revised on 2017. Eosinophil pct 1.9 % [facility] Comment: Interpretive Data Percent cell count reference ranges are not reported, since discordance with absolute values may lead to misinterpretation of CBC data. Current Interpretive Data was last revised on 2017. Basophil pct 0.4 % [facility] Comment: Interpretive Data Percent cell count reference ranges are not reported, since discordance with absolute values may lead to misinterpretation of CBC data. Current Interpretive Data was last revised on 2017. Blood 01/10/2025 10:4 7 PM CDT 01/10/2025 11:23 PM CDT Rosa Beltran NP LAB BLOOD ORDERABLES Final Re sult [facility] [place] [address] * (ABNORMAL) CBC with auto differential (01/10/2025 10:47 PM CDT) [facility] WBC 9.03 3.80 - 9.90 K/cumm Hgb 8.2(L) 13.0 - 17.5 g/dL [facility] Hct 25.1(L) 38.9 - 50.3 % [facility] Plt 357 150 - 400 K/cumm [facility] MPV 9.8 9.1 - 12.3 fL [facility] RBC 2.47(L) 4.30 - 5.80 M/cumm [facility] MCV 101.6(H) 81.3 - 96.4 fL [facility] MCH 33.2 27.1 - 33.3 pg [facility] MCHC 32.7 32.3 - 35.7 g/dL [facility] RDW CV 14.5 11.1 - 14.9 % [facility] RDW SD 53.6(H) 35.7 - 48.1 fL [facility] NRBC abs 0.00 0.00 - 0.01 K/cumm [facility] Blood 01/10/2025 10:4 7 PM CDT 01/10/2025 11:23 PM CDT Rosa Beltran CUTTING TABLE OPERATOR FIRST LAB BLOOD ORDERABLES Final Re sult Performing Organization Address [facility] de Phone Number [facility] [place] [address] * (ABNORMAL) Phosphorus (01/10/2025 10:47 PM CDT) [facility] Phosphorus, pl 5.5(H) 2.3 - 4.5 mg/dL Blood 01/10/2025 10:4 7 PM CDT 01/10/2025 11:23 PM CDT Rosa Beltran CUTTING TABLE OPERATOR FIRST LAB BLOOD ORDERABLES Final Re sult Performing Organization Address City/[facility]/ZIP Co de Phone Number CYNTHIA [facility] [place] [address] * Magnesium (01/10/2025 10:47 PM CDT) Pathologist [facility] Magnesium 2.3 1.4 - 2.5 mg/dL Blood 01/10/2025 10:4 7 PM CDT 01/10/2025 11:23 PM CDT Rosa Beltran NP LAB BLOOD ORDERABLES Final [facility] Performing Organization Address City/[facility] Co de Phone Number CYNTHIA [facility] [place] [address] * (ABNORMAL) Basic metabolic panel (01/10/2025 10:47 PM CDT) Pathologist [facility] Sodium 143 135 - 145 mmol/L Potassium, pl 4.7 3.3 - 4.9 mmol/L [facility] Chloride 106 97 - 110 mmol/L [facility] CO2 28 22 - 32 mmol/L [facility] Anion gap 9 2 - 15 mmol/L [facility] BUN 57(H) 6 - 25 mg/dL [facility] Creatinine 1.61(H) 0.80 - 1.30 mg/dL [facility] Glucose 106 70 - 199 mg/dL [facility] Comment: Interpretive Data Fasting glucose >/= 126 [...] 2022. Calcium 9.6 8.5 - 10.3 mg/dL [facility] Blood 01/10/2025 10:4 7 PM CDT 01/10/2025 11:23 PM CDT Rosa Beltran NP LAB BLOOD ORDERABLES Final Re sult Performing Organization Address [facility] Co de Phone Number CYNTHIA [facility] [place] [address] * POCT glucose (01/10/2025 8:17 PM CDT) Glucose, POC 106 70 - 199 mg/dL Blood 01/10/2025 8:17 PM CDT 01/10/2025 8:17 PM CDT Parth Dalton MD LAB POCT ORDERABLES - DEVICE Final Result Performing Organization Address [facility] de Phone Number CYNTHIA [facility] [place] [address] * POCT glucose (01/10/2025 4:49 PM CDT) Glucose, POC 146 70 - 199 mg/dL Blood 01/10/2025 4:49 PM CDT 01/10/2025 4:49 PM CDT Parth Dalton MD LAB POCT ORDERABLES - DEVICE Final Result Performing Organization Address [facility] de Phone Number [facility] [employer] [place] [address] * [place] Modified Barium Swallow W Video [...] by: Axel Jacob M.D. us Marci Rater CUTTING TABLE OPERATOR FIRST IMG FLUOROSCOPY PROCEDURES Final Result * ROOM MANAGER Evaluate and Treat (VFSS) (01/10/2025 3:43 PM CDT) Narrative Katina Loya, ROOM MANAGER - 01/10/2025 3:43 PM CDT Katina Loya, [...] regular liquids General Information Megan Titus 01/10/25 ROOM MANAGER Received On: 01/10/25 General Observations: alert, cooperative. [...] Diet Solids Recommendation: Regular Diet Liquids Recommendations: [place] thick Recommended Form of Medications: As tolerated [...] at 90 degrees. Consistencies Administered: Thin liquids, [place] thickened liquids, Purees, Solids Administered consistencies contain barium product. Thin Liquids: Laryngeal Penetration: Present Aspiration Present: Yes Timing: During, After Amount: Trace Response to aspiration: None Penetration Aspiration Scale-Thin: 8-Material enters the airway, passes below the vocal folds and no effort is made to eject [place] Thickened Liquids: Laryngeal Penetration: None Aspiration Present: No Penetration Aspiration Scale-[place]: 1-Material does not enter airway Purees: Laryngeal [...] had appropriate questions which were answered. Plan ROOM MANAGER Frequency of Services during current admission: 1-2x/wk ROOM MANAGER Recommendation (Add'l Services): (may not require ROOM MANAGER at d/c) Next Visit Plan: treatment/therapy Additional Referrals: Discharge Summary Statement If this is the last swallow therapy visit, this serves as the discharge summary. Marci Rater CUTTING TABLE OPERATOR FIRST ROOM MANAGER ORDERABLES Final Result * XR Chest 1 [...] the hemidiaphragm and terminates out of the [id number]. Stable trace left apical pneumothorax. No definitive [...] it. Electronically signed by: Magnus Farah M.D. [facility] 01/10/2025 3:15 PM CDT EXAMINATION: 1 view [...] the hemidiaphragm and terminates out of the [id number]-[id number]. Stable trace left apical pneumothorax. No definitive [...] signed by: Magnus Farah M.D. Marsha Villarreal CUTTING TABLE OPERATOR FIRST IMG XR PROCEDURES Final Resul t * POCT glucose (01/10/2025 12:46 PM CDT) Glucose, POC 103 70 - 199 mg/dL Blood 01/10/2025 12:4 6 PM CDT 01/10/2025 12:46 PM CDT Parth Dalton MD LAB POCT ORDERABLES - DEVICE Final Result Performing Organization Address [facility] Co de Phone Number [facility] [employer] [place] [address] * POCT glucose (01/10/2025 8:05 AM CDT) Glucose, POC 108 70 - 199 mg/dL Blood 01/10/2025 8:05 AM CDT 01/10/2025 8:05 AM CDT Parth Dalton MD LAB POCT ORDERABLES - DEVICE Final Result Performing Organization Address [facility] de Phone Number [facility] Department [place] [employer] [place] [address] * POCT glucose (01/10/2025 4:33 AM CDT) Glucose, POC 106 70 - 199 mg/dL Blood 01/10/2025 4:33 AM CDT 01/10/2025 4:33 AM CDT Parth Dalton MD LAB POCT ORDERABLES - DEVICE Final Result Performing Organization Address [facility] de Phone Number [facility] [employer] [place] [address] * (ABNORMAL) POCT glucose (01/10/2025 4:31 AM CDT) Glucose, POC 65(L) 70 - 199 mg/dL Blood 01/10/2025 4:31 AM CDT 01/10/2025 4:31 AM CDT us Parth Dalton MD LAB POCT ORDERABLES - DEVICE Final Result Performing Organization Address [facility] Co de Phone Number [facility] [employer] [place] [address] * POCT glucose (01/10/2025 12:44 AM CDT) Glucose, POC 138 70 - 199 mg/dL Blood 01/10/2025 12:4 4 AM CDT 01/10/2025 12:44 AM CDT us Parth Dalton MD LAB POCT ORDERABLES - DEVICE Final Result Performing Organization Address [facility] de Phone Number [facility] [employer] [place] [address] * (ABNORMAL) POCT glucose (01/10/2025 12:25 AM CDT) Glucose, POC 56(L) 70 - 199 mg/dL Blood 01/10/2025 12:2 5 AM CDT 01/10/2025 12:25 AM CDT Parth Dalton MD LAB POCT ORDERABLES - DEVICE Final Result Performing Organization Address City/[facility] [place] [address] * (ABNORMAL) POCT glucose (01/09/2025 11:51 PM CDT) Glucose, POC 60(L) 70 - 199 mg/dL Blood 01/09/2025 11:5 1 PM CDT 01/09/2025 11:51 PM CDT Parth Dalton MD LAB POCT ORDERABLES - DEVICE Final Result Performing Organization Address [facility] Co de Phone Number [facility] [place] [address] * (ABNORMAL) eGFR (01/09/2025 9:03 PM CDT) eGFR 45(L) >=60 mL/min/1. 73 [...] ORDERABLES Final Re sult Performing Organization Address City/[facility]/ZIP Co de Phone Number [facility] [place] [address] * (ABNORMAL) Differential, auto (01/09/2025 9:03 PM CDT) Neutrophil abs 6.18 1.50 - 6.50 K/cumm Imm gran abs 0.53(H) 0.00 - 0.10 K/cumm [facility] Lymphocyte abs 0.77(L) 0.80 - 3.30 K/cumm [facility] Monocyte abs 0.58 0.20 - 0.80 K/cumm [facility] Eosinophil abs 0.25 0.00 - 0.50 K/cumm [facility] Basophil abs 0.03 0.00 - 0.10 K/cumm [facility] Neutrophil pct 74.0 % [facility] Comment: Interpretive Data Percent cell count reference ranges are not reported, since discordance with absolute values may lead to misinterpretation of CBC data. Current Interpretive Data was last revised on 2017. Imm gran pct 6.4 % [facility] Comment: Interpretive Data Percent cell count reference ranges are not reported, since discordance with absolute values may lead to misinterpretation of CBC data. Current Interpretive Data was last revised on 2017. Lymphocyte pct 9.2 % [facility] Comment: Interpretive Data Percent cell count reference ranges are not reported, since discordance with absolute values may lead to misinterpretation of CBC data. Current Interpretive Data was last revised on 2017. Monocyte pct 7.0 % [facility] Comment: Interpretive Data Percent cell count reference ranges are not reported, since discordance with absolute values may lead to misinterpretation of CBC data. Current Interpretive Data was last revised on 2017. Eosinophil pct 3.0 % [facility] Comment: Interpretive Data Percent cell count reference ranges are not reported, since discordance with absolute values may lead to misinterpretation of CBC data. Current Interpretive Data was last revised on 2017. Basophil pct 0.4 % [facility] Comment: Interpretive Data Percent cell count reference ranges are not reported, since discordance with absolute values may lead to misinterpretation of CBC data. Current Interpretive Data was last revised on 2017. Blood 01/09/2025 9:03 PM CDT 01/09/2025 9:15 PM CDT Rosa Beltran NP LAB BLOOD ORDERABLES Final Re sult [facility] Department [place] [address] * (ABNORMAL) CBC with auto differential (01/09/2025 9:03 PM CDT) Pathologist [facility] WBC 8.34 3.80 - 9.90 K/cumm Hgb 8.5(L) 13.0 - 17.5 g/dL [facility] Hct 26.0(L) 38.9 - 50.3 % [facility] Plt 337 150 - 400 K/cumm [facility] MPV 9.5 9.1 - 12.3 fL [facility] RBC 2.53(L) 4.30 - 5.80 M/cumm [facility] MCV 102.8(H) 81.3 - 96.4 fL [facility] MCH 33.6(H) 27.1 - 33.3 pg [facility] MCHC 32.7 32.3 - 35.7 g/dL [facility] RDW CV 14.7 11.1 - 14.9 % [facility] RDW SD 54.9(H) 35.7 - 48.1 fL [facility] NRBC abs 0.03(H) 0.00 - 0.01 K/cumm [facility] Blood 01/09/2025 9:03 PM CDT 01/09/2025 9:15 PM CDT Rosa Beltran CUTTING TABLE OPERATOR FIRST LAB BLOOD ORDERABLES Final Re sult Performing Organization Address City/[facility] Co de Phone Number [facility] [place] [address] * Phosphorus (01/09/2025 9:03 PM CDT) Pathologist [facility] Phosphorus, pl 4.5 2.3 - 4.5 mg/dL Blood 01/09/2025 9:03 PM CDT 01/09/2025 9:15 PM CDT [facility] [employer] CUTTING TABLE OPERATOR FIRST LAB BLOOD ORDERABLES Final Re sult [facility] [place] [address] * Magnesium (01/09/2025 9:03 PM CDT) [facility] Magnesium 2.1 1.4 - 2.5 mg/dL Blood 01/09/2025 9:03 PM CDT 01/09/2025 9:15 PM CDT Rosa Beltran CUTTING TABLE OPERATOR FIRST LAB BLOOD ORDERABLES Final Re sult CYNTHIA [facility] [place] [address] * (ABNORMAL) Basic metabolic panel (01/09/2025 9:03 PM CDT) [facility] Sodium 145 135 - 145 mmol/L Potassium, pl 4.5 3.3 - 4.9 mmol/L [facility] Chloride 108 97 - 110 mmol/L [facility] CO2 28 22 - 32 mmol/L [facility] Anion gap 9 2 - 15 mmol/L [facility] BUN 56(H) 6 - 25 mg/dL [facility] Creatinine 1.61(H) 0.80 - 1.30 mg/dL [facility] Glucose 116 70 - 199 mg/dL [facility] Comment: Interpretive Data Fasting glucose >/= 126 [...] 2022. Calcium 9.9 8.5 - 10.3 mg/dL [facility] Blood 01/09/2025 9:03 PM CDT 01/09/2025 9:15 PM CDT Rosa Beltran NP LAB BLOOD ORDERABLES Final Re sult [facility] [place] [address] * POCT glucose (01/09/2025 8:21 PM CDT) Glucose, POC 87 70 - 199 mg/dL Blood 01/09/2025 8:21 PM CDT 01/09/2025 8:21 PM CDT Parth Dalton MD LAB POCT ORDERABLES - DEVICE Final Result Performing Organization Address [facility] Co de Phone Number CYNTHIA MURPHY Fernanda [facility] [place] [address] * XR Chest 1 View (01/09/2025 5:44 [...] stable. Electronically signed by: Jan Myers M.D. Gloria Ledezma CUTTING TABLE OPERATOR FIRST IMG XR PROCEDURES Raquel l Result * Potassium, whole blood (01/09/2025 5:26 PM CDT) [facility] Potassium, bld 4.6 3.3 - 4.9 mmol/L Blood 01/09/2025 5:26 PM CDT 01/09/2025 5:34 PM CDT Jyotsna Salazar NP LAB BLOOD ORDERABLES Final Result Performing Organization Address [facility] Co de Phone Number [facility] Department [place] [employer] [place] [address] * POCT glucose (01/09/2025 5:22 PM CDT) [facility] Glucose, POC 116 70 - 199 mg/dL Blood 01/09/2025 5:22 PM CDT 01/09/2025 5:22 PM CDT Parth Dalton MD LAB POCT ORDERABLES - DEVICE Final Result Performing Organization Address City/[facility] Co de Phone Number [facility] Department [place] [employer] [place] [address] * POCT glucose (01/09/2025 1:00 PM CDT) Glucose, POC 105 70 - 199 mg/dL Blood 01/09/2025 1:00 PM CDT 01/09/2025 1:00 PM CDT Result [facility] Parth Dalton MD LAB POCT ORDERABLES - DEVICE Final Result Performing Organization Address [facility] Co de Phone Number [facility] [place] [employer] [place] [address] * (ABNORMAL) Protime-INR (01/09/2025 9:38 AM CDT) PT 14.7(H) 10.2 - 13.5 sec INR 1.31(H) 0.90 - 1.20 [facility] Comment: Interpretive data Oral anticoagulant therapeutic ranges: Venous thromboembolism prophylaxis or treatment: 2.0-3.0 CARDIOLOGY Standard range: 2.0-3.0 High-intensity range: 2.5-3.5 Refer to indication-specific guidelines for appropriate target ranges for prosthetic heart valve replacement. Current interpretive data was last revised on 2019. Blood 01/09/2025 9:38 AM CDT 01/09/2025 10:52 AM CDT Narrative [facility] - 01/09/2025 11:01 AM CDT Baseline prior to apixaban initiation. Gloria Ledezma CUTTING TABLE OPERATOR FIRST LAB BLOOD ORDERABLES F inal Result Performing Organization Address [facility] Co de Phone Number [facility] [employer] [place] [address] * POCT glucose (01/09/2025 8:16 AM CDT) Glucose, POC 81 70 - 199 mg/dL Blood 01/09/2025 8:16 AM CDT 01/09/2025 8:16 AM CDT Parth Dalton MD LAB POCT ORDERABLES - DEVICE Final Result Performing Organization Address [facility] Co de Phone Number [facility] [employer] [place] [address] * XR Chest 1 View (01/09/2025 7:44 AM CDT) Anatomical Region Laterality Modality Body, Chest N/A Computed Radiogr aphy 01/09/2025 10:1 0 AM CDT Impressions 01/09/2025 10:25 AM CDT Comparison is made with multiple prior exams, most recently radiograph dated 01/08/2025. Tracheostomy in place. Feeding tube projects over the stomach, distal tip is out of the hrxah-ic-ttoh. Right upper extremity peripheral inserted central venous [...] stomach, distal tip is out of the [id number]-hkgc. Right upper extremity peripheral inserted central venous [...] it. Electronically signed by: Lupe Garland M.D. Gloria Ledezma CUTTING TABLE OPERATOR FIRST IMG XR PROCEDURES Raquel l Result * Infection Prevention Blanche auris PCR, surveillance Axilla/Groin (01/09/2025 5:56 AM CDT) Pathologist [facility] Blanche auris DNA Not Detected Not Detected [facility] Comment: Interpretive Data Testing performed by [facility] Molecular Infectious Disease Laboratory using the [employer] Blanche auris assay. This assay detects DNA from Blanche auris using Real-Time PCR. This assay is laboratory developed and is not cleared by the [facility] Food and Drug Administration. The performance characteristics have been verified by the [facility] Molecular Infectious Disease Laboratory. Axilla/Groin 01/09/2025 5:56 AM CDT 01/09/2025 7:32 AM CDT Narrative CYNTHIA [facility] - 01/09/2025 2:13 PM CDT Order placed by [facility] due to ring surveillance. Instant Order Generic Provider LAB MICROBIOLOGY - GENERAL ORDERABLES Final Result [facility] Department [place] [place] [address] [facility] * Potassium, whole blood (01/09/2025 4:36 AM CDT) [facility] Potassium, bld 3.7 3.3 - 4.9 mmol/L Blood 01/09/2025 4:36 AM CDT 01/09/2025 5:34 AM CDT Jyotsna Salazar CUTTING TABLE OPERATOR FIRST LAB BLOOD ORDERABLES Final Result [facility] [place] [address] * POCT glucose (01/09/2025 4:36 AM CDT) Glucose, POC 98 70 - 199 mg/dL Blood 01/09/2025 4:36 AM CDT 01/09/2025 4:36 AM CDT us Parth Dalton MD LAB POCT ORDERABLES - DEVICE Final Result Performing Organization Address City/[facility] Co de Phone Number [facility] Department [place] [employer] [place] [address] * (ABNORMAL) eGFR (01/09/2025 4:31 AM CDT) [facility] eGFR 43(L) >=60 mL/min/1. 73 m2 Comment: [...] BLOOD ORDERABLES Final Result Performing Organization Address City/[facility]/ZIP Co de Phone Number [facility] [place] [address] * (ABNORMAL) Basic metabolic panel (01/09/2025 4:31 AM CDT) Sodium 144 135 - 145 mmol/L Potassium, pl 3.8 3.3 - 4.9 mmol/L [facility] Chloride 106 97 - 110 mmol/L [facility] CO2 29 22 - 32 mmol/L [facility] Anion gap 9 2 - 15 mmol/L [facility] BUN 55(H) 6 - 25 mg/dL [facility] Creatinine 1.65(H) 0.80 - 1.30 mg/dL [facility] Glucose 91 70 - 199 mg/dL [facility] Comment: Interpretive Data Fasting glucose >/= 126 [...] 2022. Calcium 9.7 8.5 - 10.3 mg/dL [facility] Blood 01/09/2025 4:31 AM CDT 01/09/2025 5:43 AM CDT us Leisa Ling NP LAB BLOOD ORDERABLES Final Result Performing Organization Address [facility]/ZIP Co de Phone Number [facility] Department of [employer] [address] * POCT glucose (01/09/2025 12:27 AM CDT) Glucose, POC 87 70 - 199 mg/dL Blood 01/09/2025 12:2 7 AM CDT 01/09/2025 12:27 AM CDT us Parth Dalton MD LAB POCT ORDERABLES - DEVICE Final Result Performing Organization Address [facility]/ZIP Co de Phone Number [facility] [place] [address] * Potassium, whole blood (01/08/2025 8:15 PM CDT) [facility] Potassium, bld 4.1 3.3 - 4.9 mmol/L Blood 01/08/2025 8:15 PM CDT 01/08/2025 8:24 PM CDT us Jyotsna Salazar CUTTING TABLE OPERATOR FIRST LAB BLOOD ORDERABLES Final Result [facility] [place] [address] * POCT glucose (01/08/2025 8:12 PM CDT) [facility] Glucose, POC 98 70 - 199 mg/dL Blood 01/08/2025 8:12 PM CDT 01/08/2025 8:12 PM CDT us Parth Dalton MD LAB POCT ORDERABLES - DEVICE Final Result Performing Organization Address City/[facility] Co de Phone Number [facility] [place] [address] * (ABNORMAL) eGFR (01/08/2025 8:11 PM CDT) [facility] eGFR 47(L) >=60 mL/min/1. 73 m2 Comment: [...] NP LAB BLOOD ORDERABLES Final Re sult [facility] [place] [address] * (ABNORMAL) Differential, auto (01/08/2025 8:11 PM CDT) Neutrophil abs 5.80 1.50 - 6.50 K/cumm Imm gran abs 0.44(H) 0.00 - 0.10 K/cumm [facility] Lymphocyte abs 0.78(L) 0.80 - 3.30 K/cumm [facility] Monocyte abs 0.76 0.20 - 0.80 K/cumm [facility] Eosinophil abs 0.23 0.00 - 0.50 K/cumm [facility] Basophil abs 0.03 0.00 - 0.10 K/cumm [facility] Neutrophil pct 72.0 % [facility] Comment: Interpretive Data Percent cell count reference ranges are not reported, since discordance with absolute values may lead to misinterpretation of CBC data. Current Interpretive Data was last revised on 2017. Imm gran pct 5.5 % [facility] Comment: Interpretive Data Percent cell count reference ranges are not reported, since discordance with absolute values may lead to misinterpretation of CBC data. Current Interpretive Data was last revised on 2017. Lymphocyte pct 9.7 % [facility] Comment: Interpretive Data Percent cell count reference ranges are not reported, since discordance with absolute values may lead to misinterpretation of CBC data. Current Interpretive Data was last revised on 2017. Monocyte pct 9.5 % [facility] Comment: Interpretive Data Percent cell count reference ranges are not reported, since discordance with absolute values may lead to misinterpretation of CBC data. Current Interpretive Data was last revised on 2017. Eosinophil pct 2.9 % [facility] Comment: Interpretive Data Percent cell count reference ranges are not reported, since discordance with absolute values may lead to misinterpretation of CBC data. Current Interpretive Data was last revised on 2017. Basophil pct 0.4 % [facility] Comment: Interpretive Data Percent cell count reference ranges are not reported, since discordance with absolute values may lead to misinterpretation of CBC data. Current Interpretive Data was last revised on 2017. Blood 01/08/2025 8:11 PM CDT 01/08/2025 8:28 PM CDT Rosa Beltran NP LAB BLOOD ORDERABLES Final Re sult [facility] [place] [address] * (ABNORMAL) CBC with auto differential (01/08/2025 8:11 PM CDT) WBC 8.04 3.80 - 9.90 K/cumm Hgb 8.6(L) 13.0 - 17.5 g/dL [facility] Hct 26.2(L) 38.9 - 50.3 % [facility] Plt 325 150 - 400 K/cumm [facility] MPV 9.2 9.1 - 12.3 fL [facility] RBC 2.57(L) 4.30 - 5.80 M/cumm [facility] MCV 101.9(H) 81.3 - 96.4 fL [facility] MCH 33.5(H) 27.1 - 33.3 pg [facility] MCHC 32.8 32.3 - 35.7 g/dL [facility] RDW CV 15.0(H) 11.1 - 14.9 % [facility] RDW SD 56.0(H) 35.7 - 48.1 fL [facility] NRBC abs 0.03(H) 0.00 - 0.01 K/cumm [facility] Blood 01/08/2025 8:11 PM CDT 01/08/2025 8:28 PM CDT Rosa Beltran LAB BLOOD ORDERABLES Final Re sult Performing Organization Address [facility] [place] [address] * Type and screen (01/08/2025 8:11 PM CDT) Pathologist [facility] Becca, indirect Negative ABO Rh A Positive [facility] Blood 01/08/2025 8:11 PM CDT 01/08/2025 8:34 PM CDT Narrative [facility] - 01/08/2025 9:31 PM CDT Has the patient had Daratumumab or Isatuximab in the past 6 months?->Unknown Rosa Beltran LAB BLOOD BANK TEST ORDERABLE S Final Result Performing Organization Address [facility] [place] [address] * (ABNORMAL) Phosphorus (01/08/2025 8:11 PM CDT) Pathologist [facility] Phosphorus, pl 4.6(H) 2.3 - 4.5 mg/dL Blood 01/08/2025 8:11 PM CDT 01/08/2025 8:26 PM CDT Rosa Beltran CUTTING TABLE OPERATOR FIRST LAB BLOOD ORDERABLES Final Re sult Performing Organization Address [facility] [place] [address] * Magnesium (01/08/2025 8:11 PM CDT) Pathologist [facility] Magnesium 2.1 1.4 - 2.5 mg/dL Blood 01/08/2025 8:11 PM CDT 01/08/2025 8:26 PM CDT Rosa Beltran NP LAB BLOOD ORDERABLES Final Re sult Performing Organization Address [facility] Co de Phone Number [facility] [place] [address] * (ABNORMAL) Hepatic function panel (01/08/2025 8:11 PM CDT) Bilirubin, total 0.5 0.1 - 1.2 mg/dL Bilirubin, direct 0.2 0.1 - 0.3 mg/dL [facility] Protein, pl 6.5 6.5 - 8.5 g/dL [facility] Albumin 3.2(L) 3.5 - 5.0 g/dL [facility] Alk phos 54 40 - 130 Units/L [facility] ALT 73(H) 7 - 55 Units/L [facility] AST 52(H) 10 - 50 Units/L [facility] Blood 01/08/2025 8:11 PM CDT 01/08/2025 8:26 PM CDT Parth Dalton MD LAB BLOOD ORDERABLES Final Re sult Performing Organization Address [facility] Co de Phone Number [facility] [place] [address] * (ABNORMAL) Basic metabolic panel (01/08/2025 8:11 PM CDT) Sodium 150(H) 135 - 145 mmol/L Potassium, pl 4.3 3.3 - 4.9 mmol/L [facility] Chloride 111(H) 97 - 110 mmol/L [facility] CO2 27 22 - 32 mmol/L [facility] Anion gap 12 2 - 15 mmol/L [facility] BUN 52(H) 6 - 25 mg/dL [facility] Creatinine 1.55(H) 0.80 - 1.30 mg/dL [facility] Glucose 97 70 - 199 mg/dL [facility] Comment: Interpretive Data Fasting glucose >/= 126 [...] 2022. Calcium 9.7 8.5 - 10.3 mg/dL [facility] Blood 01/08/2025 8:11 PM CDT 01/08/2025 8:26 PM CDT Rosa Beltran NP LAB BLOOD ORDERABLES Final Re sult [facility] [place] [address] * POCT glucose (01/08/2025 4:11 PM CDT) [facility] Signature Glucose, POC 124 70 - 199 mg/dL Blood 01/08/2025 4:11 PM CDT 01/08/2025 4:11 PM CDT Parth Dalton MD LAB POCT ORDERABLES - DEVICE Final Result Performing Organization Address City/[facility]/ZIP Co de Phone Number [facility] [place] [address] * XR Chest 1 View (01/08/2025 1:18 PM CDT) Anatomical Region Laterality Modality Body, Chest N/A Computed Radiogr aphy 01/08/2025 2:45 PM CDT Addenda Addendum by Mikey Bender [...] Electronically signed by: Mikey Bender M.D. Gloria Gauthier Wilsall CUTTING TABLE OPERATOR FIRST IMG XR PROCEDURES Edit ed Result - Final * POCT glucose (01/08/2025 11:59 AM CDT) Glucose, POC 120 70 - 199 mg/dL Blood 01/08/2025 11:5 9 AM CDT 01/08/2025 11:59 AM CDT us Parth Dalton MD LAB POCT ORDERABLES - DEVICE Final Result Performing Organization Address [facility] de Phone Number [facility] [employer] [place] [address] * POCT glucose (01/08/2025 7:34 AM CDT) Glucose, POC 75 70 - 199 mg/dL Blood 01/08/2025 7:34 AM CDT 01/08/2025 7:34 AM CDT us Parth Dalton MD LAB POCT ORDERABLES - DEVICE Final Result Performing Organization Address [facility] de Phone Number [facility] [place] [employer] [place] [address] * POCT glucose (01/08/2025 4:18 AM CDT) Glucose, POC 95 70 - 199 mg/dL Blood 01/08/2025 4:18 AM CDT 01/08/2025 4:18 AM CDT us Parth Dalton MD LAB POCT ORDERABLES - DEVICE Final Result Performing Organization Address [facility] de Phone Number [facility] [employer] [place] [address] * POCT glucose (01/07/2025 11:30 PM CDT) Glucose, POC 94 70 - 199 mg/dL Blood 01/07/2025 11:3 0 PM CDT 01/07/2025 11:30 PM CDT us Parth Dalton MD LAB POCT ORDERABLES - DEVICE Final Result Performing Organization Address [facility] de Phone Number [facility] [place] [address] * (ABNORMAL) eGFR (01/07/2025 8:57 PM CDT) Pathologist [facility] eGFR 43(L) >=60 mL/min/1. 73 m2 Comment: [...] ORDERABLES Final Re sult Performing Organization Address City/[facility] Co de Phone Number [facility] [place] [address] * (ABNORMAL) Differential, auto (01/07/2025 8:57 PM CDT) Pathologist [facility] Neutrophil abs 6.34 1.50 - 6.50 K/cumm Imm gran abs 0.46(H) 0.00 - 0.10 K/cumm [facility] Lymphocyte abs 0.85 0.80 - 3.30 K/cumm [facility] Monocyte abs 0.59 0.20 - 0.80 K/cumm [facility] Eosinophil abs 0.21 0.00 - 0.50 K/cumm [facility] Basophil abs 0.04 0.00 - 0.10 K/cumm [facility] Neutrophil pct 74.7 % [facility] Comment: Interpretive Data Percent cell count reference ranges are not reported, since discordance with absolute values may lead to misinterpretation of CBC data. Current Interpretive Data was last revised on 2017. Imm gran pct 5.4 % [facility] Comment: Interpretive Data Percent cell count reference ranges are not reported, since discordance with absolute values may lead to misinterpretation of CBC data. Current Interpretive Data was last revised on 2017. Lymphocyte pct 10.0 % [facility] Comment: Interpretive Data Percent cell count reference ranges are not reported, since discordance with absolute values may lead to misinterpretation of CBC data. Current Interpretive Data was last revised on 2017. Monocyte pct 6.9 % [facility] Comment: Interpretive Data Percent cell count reference ranges are not reported, since discordance with absolute values may lead to misinterpretation of CBC data. Current Interpretive Data was last revised on 2017. Eosinophil pct 2.5 % [facility] Comment: Interpretive Data Percent cell count reference ranges are not reported, since discordance with absolute values may lead to misinterpretation of CBC data. Current Interpretive Data was last revised on 2017. Basophil pct 0.5 % [facility] Comment: Interpretive Data Percent cell count reference ranges are not reported, since discordance with absolute values may lead to misinterpretation of CBC data. Current Interpretive Data was last revised on 2017. Blood 01/07/2025 8:57 PM CDT 01/07/2025 9:37 PM CDT Rosa Beltran NP LAB BLOOD ORDERABLES Final Re sult [facility] [place] [address] * (ABNORMAL) CBC with auto differential (01/07/2025 8:57 PM CDT) [facility] WBC 8.49 3.80 - 9.90 K/cumm Hgb 9.2(L) 13.0 - 17.5 g/dL [facility] Hct 27.9(L) 38.9 - 50.3 % [facility] Plt 345 150 - 400 K/cumm [facility] MPV 9.5 9.1 - 12.3 fL [facility] RBC 2.71(L) 4.30 - 5.80 M/cumm [facility] MCV 103.0(H) 81.3 - 96.4 fL [facility] MCH 33.9(H) 27.1 - 33.3 pg [facility] MCHC 33.0 32.3 - 35.7 g/dL [facility] RDW CV 15.3(H) 11.1 - 14.9 % [facility] RDW SD 56.9(H) 35.7 - 48.1 fL [facility] NRBC abs 0.04(H) 0.00 - 0.01 K/cumm [facility] Blood 01/07/2025 8:57 PM CDT 01/07/2025 9:37 PM CDT Rosa Beltran CUTTING TABLE OPERATOR FIRST LAB BLOOD ORDERABLES Final Re sult Performing Organization Address City/[facility]/ZIP Co de Phone Number [facility] [employer] [place] [address] * (ABNORMAL) Phosphorus (01/07/2025 8:57 PM CDT) [facility] Phosphorus, pl 4.7(H) 2.3 - 4.5 mg/dL Blood 01/07/2025 8:57 PM CDT 01/07/2025 9:37 PM CDT Rosa Beltran CUTTING TABLE OPERATOR FIRST LAB BLOOD ORDERABLES Final Re sult [facility] [place] [employer] [place] [address] * Magnesium (01/07/2025 8:57 PM CDT) Pathologist [facility] Magnesium 2.2 1.4 - 2.5 mg/dL Blood 01/07/2025 8:57 PM CDT 01/07/2025 9:37 PM CDT us Rosa Beltran NP LAB BLOOD ORDERABLES Final Re sult [facility] [place] [address] * (ABNORMAL) Basic metabolic panel (01/07/2025 8:57 PM CDT) Pathologist [facility] Sodium 146(H) 135 - 145 mmol/L Potassium, pl 3.9 3.3 - 4.9 mmol/L [facility] Chloride 109 97 - 110 mmol/L [facility] CO2 26 22 - 32 mmol/L [facility] Anion gap 11 2 - 15 mmol/L [facility] BUN 56(H) 6 - 25 mg/dL [facility] Creatinine 1.67(H) 0.80 - 1.30 mg/dL [facility] Glucose 120 70 - 199 mg/dL [facility] Comment: Interpretive Data Fasting glucose >/= 126 [...] 2022. Calcium 9.8 8.5 - 10.3 mg/dL [facility] Blood 01/07/2025 8:57 PM CDT 01/07/2025 9:37 PM CDT us Rosa Beltran NP LAB BLOOD ORDERABLES Final Re sult Performing Organization Address [facility] Co de Phone Number [facility] [employer] [place] [address] * POCT glucose (01/07/2025 8:56 PM CDT) Glucose, POC 117 70 - 199 mg/dL Blood 01/07/2025 8:56 PM CDT 01/07/2025 8:56 PM CDT Parth Dalton MD LAB POCT ORDERABLES - DEVICE Final Result Performing Organization Address [facility] de Phone Number [facility] [employer] [place] [address] * POCT glucose (01/07/2025 7:47 PM CDT) Glucose, POC 96 70 - 199 mg/dL Blood 01/07/2025 7:47 PM CDT 01/07/2025 7:47 PM CDT Parth Dalton MD LAB POCT ORDERABLES - DEVICE Final Result Performing Organization Address [facility] Co de Phone Number [facility] [place] [employer] [place] [address] * POCT glucose (01/07/2025 4:21 PM CDT) Glucose, POC 127 70 - 199 mg/dL Blood 01/07/2025 4:21 PM CDT 01/07/2025 4:21 PM CDT Parth Dalton MD LAB POCT ORDERABLES - DEVICE Final Result Performing Organization Address [facility] Co de Phone Number [facility] [place] [address] * XR Abdomen Ap 1 Vw (01/07/2025 [...] it. Electronically signed by: Vani Sarmiento M.D. Gloriabrittnee Gauthier Wilsall CUTTING TABLE OPERATOR FIRST IMG XR PROCEDURES Raquel l Result * Infection Prevention Blanche auris PCR, surveillance Axilla/Groin (01/07/2025 2:25 PM CDT) Blanche auris DNA Not Detected Not Detected [facility] Comment: Interpretive Data Testing performed by [facility] Molecular Infectious Disease Laboratory using the Daquan flaquita 6800 Blanche auris assay. This assay detects DNA from Blanche auris using Real-Time PCR. This assay is laboratory developed and is not cleared by the [facility] Food and Drug Administration. The performance characteristics have been verified by the [facility] Molecular Infectious Disease Laboratory. Axilla/Groin 01/07/2025 2:25 PM CDT 01/07/2025 2:45 PM CDT Narrative [facility] - 01/07/2025 10:52 PM CDT Order placed by [facility] due to ring surveillance. us Instant Order Generic Provider LAB MICROBIOLOGY - GENERAL ORDERABLES Final Result Performing Organization Address [facility] Co de Phone Number [facility] [place] [address] [facility] * Potassium, whole blood (01/07/2025 2:25 PM CDT) Potassium, bld 4.3 3.3 - 4.9 mmol/L Blood 01/07/2025 2:25 PM CDT 01/07/2025 2:44 PM CDT us Jyotsna Salazar NP LAB BLOOD ORDERABLES Final Result Performing Organization Address [facility] Co de Phone Number [facility] [place] [address] * POCT glucose (01/07/2025 12:03 PM CDT) Glucose, POC 131 70 - 199 mg/dL Blood 01/07/2025 12:0 3 PM CDT 01/07/2025 12:03 PM CDT us Parth Dalton MD LAB POCT ORDERABLES - DEVICE Final Result Performing Organization Address [facility] Co de Phone Number [facility] [place] [address] * POCT glucose (01/07/2025 7:34 AM CDT) Glucose, POC 147 70 - 199 mg/dL Blood 01/07/2025 7:34 AM CDT 01/07/2025 7:34 AM CDT Parth Dalton MD LAB POCT ORDERABLES - DEVICE Final Result [facility] [place] [address] * Blood culture Blood (01/07/2025 5:04 AM CDT) Report Final Report: No growth Blood 01/07/2025 5:04 AM CDT 01/07/2025 5:50 AM CDT Narrative CYNTHIA [facility] - 01/11/2025 7:00 AM CDT Collection->Peripheral 1. [...] characteristics have been verified by the [facility] Microbiology Laboratory. For questions about this culture, contact the Microbiology Laboratory at [phone]. Interpretive data was last revised on 24. Rosa Beltran NP LAB MICROBIOLOGY - GENERAL OR DERABLES Final Result CYNTHIA [facility] [place] [address] * POCT glucose (01/07/2025 4:41 AM CDT) Glucose, POC 117 70 - 199 mg/dL Blood 01/07/2025 4:41 AM CDT 01/07/2025 4:41 AM CDT Parth Dalton MD LAB POCT ORDERABLES - DEVICE Final Result Performing Organization Address [facility] Co de Phone Number CYNTHIA [facility] [place] [address] * XR Chest 1 View (01/07/2025 4:32 [...] signed by: Meghan Rios M.D. Rosa Beltran CUTTING TABLE OPERATOR FIRST IMG XR PROCEDURES Final Resul t * (ABNORMAL) Aerobic culture and gram stain Tracheal aspirate Tracheal (01/06/2025 11:41 PM CDT) Direct Specimen Exam Stain: Rare polymorphonuclear leukocytes seen. Few squamous epithelial cells seen. Few mixed bacterial katja seen on Gram stain. Report Final Report: Greater than or equal to 100,000 colonies/ml of Stenotrophomonas maltophilia Plus growth of clinically insignificant bacterial katja. (.) CYNTHIA [facility] Organism STENOTROPHOMONAS MALTOPHILIA [facility] Organism PLUS GROWTH OF CLINICALLY INSIGNIFICANT KATJA. [facility] Tracheal aspirate (Tracheal) 01/06/2025 11:41 PM CDT 01/07/2025 1:31 AM CDT Narrative CYNTHIA [facility] - 01/09/2025 2:45 PM CDT Testing performed by [facility] Microbiology Laboratory ([phone]) Specimens submitted from normally sterile body sites [...] OR DERABLES Final Result Performing Organization Address [facility] Co de Phone Number [facility] [place] [employer] [place] [address] * Lactate, whole blood (01/06/2025 11:41 PM CDT) Lactate, bld 0.9 0.7 - 2.0 mmol/L Blood 01/06/2025 11:4 1 PM CDT 01/06/2025 11:49 PM CDT Rosa Beltran NP LAB BLOOD ORDERABLES Final Re sult Performing Organization Address [facility] de Phone Number [facility] [employer] [place] [address] * POCT glucose (01/06/2025 11:39 PM CDT) Glucose, POC 104 70 - 199 mg/dL Blood 01/06/2025 11:3 9 PM CDT 01/06/2025 11:39 PM CDT Parth Dalton MD LAB POCT ORDERABLES - DEVICE Final Result Performing Organization Address [facility] de Phone Number [facility] [employer] [place] [address] * POCT glucose (01/06/2025 9:12 PM CDT) Glucose, POC 104 70 - 199 mg/dL Blood 01/06/2025 9:12 PM CDT 01/06/2025 9:12 PM CDT Parth Dalton MD LAB POCT ORDERABLES - DEVICE Final Result Performing Organization Address City/[facility] Co de Phone Number [facility] [place] [address] * (ABNORMAL) eGFR (01/06/2025 9:07 PM CDT) eGFR 41(L) >=60 mL/min/1. 73 m2 Comment: [...] 9:07 PM CDT 01/06/2025 9:48 PM CDT us Rosa Beltran NP LAB BLOOD ORDERABLES Final Re sult Performing Organization Address City/[facility]/ZIP Co de Phone Number [facility] [place] [address] * (ABNORMAL) Differential, auto (01/06/2025 9:07 PM CDT) Neutrophil abs 4.73 1.50 - 6.50 K/cumm Imm gran abs 0.29(H) 0.00 - 0.10 K/cumm [facility] Lymphocyte abs 0.54(L) 0.80 - 3.30 K/cumm [facility] Monocyte abs 0.43 0.20 - 0.80 K/cumm [facility] Eosinophil abs 0.15 0.00 - 0.50 K/cumm [facility] Basophil abs 0.04 0.00 - 0.10 K/cumm [facility] Neutrophil pct 76.6 % [facility] Comment: Interpretive Data Percent cell count reference ranges are not reported, since discordance with absolute values may lead to misinterpretation of CBC data. Current Interpretive Data was last revised on 2017. Imm gran pct 4.7 % [facility] Comment: Interpretive Data Percent cell count reference ranges are not reported, since discordance with absolute values may lead to misinterpretation of CBC data. Current Interpretive Data was last revised on 2017. Lymphocyte pct 8.7 % [facility] Comment: Interpretive Data Percent cell count reference ranges are not reported, since discordance with absolute values may lead to misinterpretation of CBC data. Current Interpretive Data was last revised on 2017. Monocyte pct 7.0 % [facility] Comment: Interpretive Data Percent cell count reference ranges are not reported, since discordance with absolute values may lead to misinterpretation of CBC data. Current Interpretive Data was last revised on 2017. Eosinophil pct 2.4 % [facility] Comment: Interpretive Data Percent cell count reference ranges are not reported, since discordance with absolute values may lead to misinterpretation of CBC data. Current Interpretive Data was last revised on 2017. Basophil pct 0.6 % [facility] Comment: Interpretive Data Percent cell count reference ranges are not reported, since discordance with absolute values may lead to misinterpretation of CBC data. Current Interpretive Data was last revised on 2017. Blood 01/06/2025 9:07 PM CDT 01/06/2025 9:49 PM CDT Rosa Beltran NP LAB BLOOD ORDERABLES Final Re sult [facility] Department [place] [address] * (ABNORMAL) CBC with auto differential (01/06/2025 9:07 PM CDT) Pathologist [facility] WBC 6.18 3.80 - 9.90 K/cumm Hgb 11.3(L) 13.0 - 17.5 g/dL [facility] Hct 34.3(L) 38.9 - 50.3 % [facility] Plt 278 150 - 400 K/cumm [facility] MPV 9.4 9.1 - 12.3 fL [facility] RBC 3.38(L) 4.30 - 5.80 M/cumm [facility] MCV 101.5(H) 81.3 - 96.4 fL [facility] MCH 33.4(H) 27.1 - 33.3 pg [facility] MCHC 32.9 32.3 - 35.7 g/dL [facility] RDW CV 15.1(H) 11.1 - 14.9 % [facility] RDW SD 57.0(H) 35.7 - 48.1 fL [facility] NRBC abs 0.05(H) 0.00 - 0.01 K/cumm [facility] Blood 01/06/2025 9:07 PM CDT 01/06/2025 9:49 PM CDT Rosa Beltran NP LAB BLOOD ORDERABLES Final Re sult Performing Organization Address [facility] Co de Phone Number [facility] Department [place] [address] * Phosphorus (01/06/2025 9:07 PM CDT) [facility] Phosphorus, pl 3.9 2.3 - 4.5 mg/dL Blood 01/06/2025 9:07 PM CDT 01/06/2025 9:48 PM CDT Rosa Beltran CUTTING TABLE OPERATOR FIRST LAB BLOOD ORDERABLES Final Re sult CYNTHIA [facility] Department [place] [address] * Magnesium (01/06/2025 9:07 PM CDT) Pathologist [facility] Magnesium 2.5 1.4 - 2.5 mg/dL Blood 01/06/2025 9:07 PM CDT 01/06/2025 9:48 PM CDT Rosa Beltran NP LAB BLOOD ORDERABLES Final Re sult Performing Organization Address City/[facility] Co de Phone Number CYNTHIA [facility] Department [place] [address] * (ABNORMAL) Basic metabolic panel (01/06/2025 9:07 PM CDT) Pathologist [facility] Sodium 144 135 - 145 mmol/L Potassium, pl 4.5 3.3 - 4.9 mmol/L [facility] Chloride 111(H) 97 - 110 mmol/L [facility] CO2 24 22 - 32 mmol/L [facility] Anion gap 9 2 - 15 mmol/L [facility] BUN 56(H) 6 - 25 mg/dL [facility] Creatinine 1.71(H) 0.80 - 1.30 mg/dL [facility] Glucose 104 70 - 199 mg/dL [facility] Comment: Interpretive Data Fasting glucose >/= 126 [...] 2022. Calcium 9.4 8.5 - 10.3 mg/dL [facility] Blood 01/06/2025 9:07 PM CDT 01/06/2025 9:48 PM CDT Rosa Beltran NP LAB BLOOD ORDERABLES Final Re sult Performing Organization Address [facility] Co de Phone Number [facility] [place] [address] * POCT glucose (01/06/2025 4:12 PM CDT) Glucose, POC 94 70 - 199 mg/dL Blood 01/06/2025 4:12 PM CDT 01/06/2025 4:12 PM CDT Parth Dalotn MD LAB POCT ORDERABLES - DEVICE Final Result Performing Organization Address [facility] de Phone Number [facility] [place] [address] * POCT glucose (01/06/2025 12:07 PM CDT) Glucose, POC 89 70 - 199 mg/dL Blood 01/06/2025 12:0 7 PM CDT 01/06/2025 12:07 PM CDT Parth Dalton MD LAB POCT ORDERABLES - DEVICE Final Result Performing Organization Address [facility] de Phone Number [facility] [place] [address] * XR Chest 1 View (01/06/2025 8:25 [...] it. Electronically signed by: Meghan Rios M.D. us Rosa Beltran NP IMG XR PROCEDURES Final [...] Electronically signed by: Keesha Parra M.D. Marci Prasad CUTTING TABLE OPERATOR FIRST IMG XR PROCEDURES Final Result * POCT glucose (01/06/2025 7:56 AM CDT) Glucose, POC 90 70 - 199 mg/dL Blood 01/06/2025 7:56 AM CDT 01/06/2025 7:56 AM CDT Parth Dalton MD LAB POCT ORDERABLES - DEVICE Final Result CYNTHIA [facility] Department [place] [address] * POCT glucose (01/06/2025 1:39 AM CDT) Glucose, POC 97 70 - 199 mg/dL Blood 01/06/2025 1:39 AM CDT 01/06/2025 1:39 AM CDT Parth Dalton MD LAB POCT ORDERABLES - DEVICE Final Result Performing Organization Address [facility] Co de Phone Number [facility] Department [place] [address] * (ABNORMAL) eGFR (01/05/2025 10:01 PM CDT) [facility] eGFR 31(L) >=60 mL/min/1. 73 m2 Comment: [...] 1 PM CDT 01/05/2025 10:44 PM CDT us Rosa Beltran NP LAB BLOOD ORDERABLES Final Re sult Performing Organization Address City/[facility]/ZIP Co de Phone Number CYNTHIA [facility] Department [place] [address] * (ABNORMAL) Differential, auto (01/05/2025 10:01 PM CDT) Neutrophil abs 5.80 1.50 - 6.50 K/cumm Imm gran abs 0.17(H) 0.00 - 0.10 K/cumm [facility] Lymphocyte abs 0.59(L) 0.80 - 3.30 K/cumm [facility] Monocyte abs 0.45 0.20 - 0.80 K/cumm [facility] Eosinophil abs 0.18 0.00 - 0.50 K/cumm [facility] Basophil abs 0.03 0.00 - 0.10 K/cumm [facility] Neutrophil pct 80.3 % [facility] Comment: Interpretive Data Percent cell count reference ranges are not reported, since discordance with absolute values may lead to misinterpretation of CBC data. Current Interpretive Data was last revised on 2017. Imm gran pct 2.4 % [facility] Comment: Interpretive Data Percent cell count reference ranges are not reported, since discordance with absolute values may lead to misinterpretation of CBC data. Current Interpretive Data was last revised on 2017. Lymphocyte pct 8.2 % [facility] Comment: Interpretive Data Percent cell count reference ranges are not reported, since discordance with absolute values may lead to misinterpretation of CBC data. Current Interpretive Data was last revised on 2017. Monocyte pct 6.2 % [facility] Comment: Interpretive Data Percent cell count reference ranges are not reported, since discordance with absolute values may lead to misinterpretation of CBC data. Current Interpretive Data was last revised on 2017. Eosinophil pct 2.5 % [facility] Comment: Interpretive Data Percent cell count reference ranges are not reported, since discordance with absolute values may lead to misinterpretation of CBC data. Current Interpretive Data was last revised on 2017. Basophil pct 0.4 % [facility] Comment: Interpretive Data Percent cell count reference ranges are not reported, since discordance with absolute values may lead to misinterpretation of CBC data. Current Interpretive Data was last revised on 2017. Blood 01/05/2025 10:0 1 PM CDT 01/05/2025 10:38 PM CDT us Rosa Beltran NP LAB BLOOD ORDERABLES Final Re sult Performing Organization Address City/[facility]/ZIP Co de Phone Number [facility] Department [place] [address] * (ABNORMAL) CBC with auto differential (01/05/2025 10:01 PM CDT) WBC 7.22 3.80 - 9.90 K/cumm Hgb 8.8(L) 13.0 - 17.5 g/dL [facility] Hct 27.1(L) 38.9 - 50.3 % [facility] Plt 302 150 - 400 K/cumm [facility] MPV 9.8 9.1 - 12.3 fL [facility] RBC 2.65(L) 4.30 - 5.80 M/cumm [facility] MCV 102.3(H) 81.3 - 96.4 fL [facility] MCH 33.2 27.1 - 33.3 pg [facility] MCHC 32.5 32.3 - 35.7 g/dL [facility] RDW CV 15.3(H) 11.1 - 14.9 % [facility] RDW SD 57.2(H) 35.7 - 48.1 fL [facility] NRBC abs 0.03(H) 0.00 - 0.01 K/cumm [facility] Blood 01/05/2025 10:0 1 PM CDT 01/05/2025 10:38 PM CDT Rosa Beltran NP LAB BLOOD ORDERABLES Final Re sult [facility] [place] [address] * Type and screen (01/05/2025 10:01 PM CDT) Becca, indirect Negative ABO Rh A Positive [facility] Blood 01/05/2025 10:0 1 PM CDT 01/05/2025 10:41 PM CDT Narrative [facility] - 01/06/2025 12:08 AM CDT Has the patient had Daratumumab or Isatuximab in the past 6 months?->Unknown Rosa Beltran LAB BLOOD BANK TEST ORDERABLE S Final Result Performing Organization Address [facility] de Phone Number [facility] [employer] [place] [address] * Phosphorus (01/05/2025 10:01 PM CDT) Phosphorus, pl 4.2 2.3 - 4.5 mg/dL Blood 01/05/2025 10:0 1 PM CDT 01/05/2025 10:38 PM CDT Rosa Beltran LAB BLOOD ORDERABLES Final Re sult Performing Organization Address [facility] de Phone Number [facility] [place] [employer] [place] [address] * (ABNORMAL) Magnesium (01/05/2025 10:01 PM CDT) Pathologist [facility] Magnesium 2.7(H) 1.4 - 2.5 mg/dL Blood 01/05/2025 10:0 1 PM CDT 01/05/2025 10:38 PM CDT [facility] BLOOD ORDERABLES Final Re sult Performing Organization Address [facility] [place] [address] * (ABNORMAL) Hepatic function panel (01/05/2025 10:01 PM CDT) Bilirubin, total 0.4 0.1 - 1.2 mg/dL Bilirubin, direct <0.2 0.1 - 0.3 mg/dL [facility] Comment:Reviewed Protein, pl 6.1(L) 6.5 - 8.5 g/dL [facility] Albumin 3.2(L) 3.5 - 5.0 g/dL [facility] Alk phos 52 40 - 130 Units/L [facility] ALT 19 7 - 55 Units/L [facility] AST 32 10 - 50 Units/L [facility] Blood 01/05/2025 10:0 1 PM CDT 01/05/2025 10:38 PM CDT us Parth Dalton MD LAB BLOOD ORDERABLES Final Re sult [facility] [place] [address] * (ABNORMAL) Basic metabolic panel (01/05/2025 10:01 PM CDT) Sodium 143 135 - 145 mmol/L Potassium, pl 4.5 3.3 - 4.9 mmol/L [facility] Chloride 108 97 - 110 mmol/L [facility] CO2 23 22 - 32 mmol/L [facility] Anion gap 12 2 - 15 mmol/L [facility] BUN 63(H) 6 - 25 mg/dL [facility] Creatinine 2.19(H) 0.80 - 1.30 mg/dL [facility] Glucose 94 70 - 199 mg/dL [facility] Comment: Interpretive Data Fasting glucose >/= 126 [...] 2022. Calcium 9.1 8.5 - 10.3 mg/dL [facility] Blood 01/05/2025 10:0 1 PM CDT 01/05/2025 10:38 PM CDT Rosa Beltran NP LAB BLOOD ORDERABLES Final Re sult Performing Organization Address [facility] Co de Phone Number [facility] [place] [address] * POCT glucose (01/05/2025 7:48 PM CDT) Glucose, POC 85 70 - 199 mg/dL Blood 01/05/2025 7:48 PM CDT 01/05/2025 7:48 PM CDT Parth Dalton MD LAB POCT ORDERABLES - DEVICE Final Result Performing Organization Address [facility] Co de Phone Number [facility] [place] [address] * POCT glucose (01/05/2025 3:40 PM CDT) Glucose, POC 114 70 - 199 mg/dL Blood 01/05/2025 3:40 PM CDT 01/05/2025 3:40 PM CDT Parth Dalton MD LAB POCT ORDERABLES - DEVICE Final Result Performing Organization Address [facility] Co de Phone Number [facility] [place] [address] * Potassium, whole blood (01/05/2025 3:20 PM CDT) Potassium, bld 4.4 3.3 - 4.9 mmol/L Blood 01/05/2025 3:20 PM CDT 01/05/2025 3:37 PM CDT Jyotsan Salazar NP LAB BLOOD ORDERABLES Final Result Performing Organization Address City/[facility] Co de Phone Number [facility] [place] [address] * POCT glucose (01/05/2025 12:04 PM CDT) Glucose, POC 88 70 - 199 mg/dL Blood 01/05/2025 12:0 4 PM CDT 01/05/2025 12:04 PM CDT us Parth Dalton MD LAB POCT ORDERABLES - DEVICE Final Result Performing Organization Address City/[facility] [place] [address] * Potassium, whole blood (01/05/2025 10:29 AM CDT) [facility] Potassium, bld 3.6 3.3 - 4.9 mmol/L Blood 01/05/2025 10:2 9 AM CDT 01/05/2025 10:39 AM CDT us Jyotsna Salazar CUTTING TABLE OPERATOR FIRST LAB BLOOD ORDERABLES Final Result Performing Organization Address City/[facility] [place] [address] * POCT glucose (01/05/2025 7:52 AM CDT) [facility] Glucose, POC 106 70 - 199 mg/dL Blood 01/05/2025 7:52 AM CDT 01/05/2025 7:52 AM CDT us Parth Dalton MD LAB POCT ORDERABLES - DEVICE Final Result Performing Organization Address City/[facility] Co de Phone Number [facility] [place] [address] * Potassium, whole blood (01/05/2025 5:09 AM CDT) Potassium, bld 3.5 3.3 - 4.9 mmol/L Blood 01/05/2025 5:09 AM CDT 01/05/2025 5:17 AM CDT Jyotsna Salazar CUTTING TABLE OPERATOR FIRST LAB BLOOD ORDERABLES Final Result Performing Organization Address [facility] Co de Phone Number [facility] [place] [address] * POCT glucose (01/05/2025 5:07 AM CDT) Glucose, POC 99 70 - 199 mg/dL Blood 01/05/2025 5:07 AM CDT 01/05/2025 5:07 AM CDT Parth Dalton MD LAB POCT ORDERABLES - DEVICE Final Result Performing Organization Address [facility] de Phone Number [facility] [place] [employer] [place] [address] * POCT glucose (01/04/2025 11:36 PM CDT) Pathologist [facility] Glucose, POC 96 70 - 199 mg/dL Blood 01/04/2025 11:3 6 PM CDT 01/04/2025 11:36 PM CDT Parth Dalton MD LAB POCT ORDERABLES - DEVICE Final Result Performing Organization Address [facility] de Phone Number [facility] [employer] [place] [address] * XR Chest 1 View (01/04/2025 11:12 [...] it. Electronically signed by: Vasquez Yusuf M.D. us Jyotsna Salazar CUTTING TABLE OPERATOR FIRST IMG XR PROCEDURES Final Re sult * [...] NP LAB BLOOD ORDERABLES Final Re sult [facility] [place] [address] * (ABNORMAL) Differential, auto (01/04/2025 9:31 PM CDT) Pathologist [facility] Neutrophil abs 5.47 1.50 - 6.50 K/cumm Imm gran abs 0.10 0.00 - 0.10 K/cumm [facility] Lymphocyte abs 0.28(L) 0.80 - 3.30 K/cumm [facility] Monocyte abs 0.24 0.20 - 0.80 K/cumm [facility] Eosinophil abs 0.12 0.00 - 0.50 K/cumm [facility] Basophil abs 0.02 0.00 - 0.10 K/cumm [facility] Neutrophil pct 87.8 % [facility] Comment: Interpretive Data Percent cell count reference ranges are not reported, since discordance with absolute values may lead to misinterpretation of CBC data. Current Interpretive Data was last revised on 2017. Imm gran pct 1.6 % [facility] Comment: Interpretive Data Percent cell count reference ranges are not reported, since discordance with absolute values may lead to misinterpretation of CBC data. Current Interpretive Data was last revised on 2017. Lymphocyte pct 4.5 % [facility] Comment: Interpretive Data Percent cell count reference ranges are not reported, since discordance with absolute values may lead to misinterpretation of CBC data. Current Interpretive Data was last revised on 2017. Monocyte pct 3.9 % [facility] Comment: Interpretive Data Percent cell count reference ranges are not reported, since discordance with absolute values may lead to misinterpretation of CBC data. Current Interpretive Data was last revised on 2017. Eosinophil pct 1.9 % [facility] Comment: Interpretive Data Percent cell count reference ranges are not reported, since discordance with absolute values may lead to misinterpretation of CBC data. Current Interpretive Data was last revised on 2017. Basophil pct 0.3 % [facility] Comment: Interpretive Data Percent cell count reference ranges are not reported, since discordance with absolute values may lead to misinterpretation of CBC data. Current Interpretive Data was last revised on 2017. Blood 01/04/2025 9:31 PM CDT 01/04/2025 10:33 PM CDT Rosa Beltran NP LAB BLOOD ORDERABLES Final Re sult [facility] [place] [address] * (ABNORMAL) CBC with auto differential (01/04/2025 9:31 PM CDT) WBC 6.23 3.80 - 9.90 K/cumm Hgb 8.4(L) 13.0 - 17.5 g/dL [facility] Hct 25.1(L) 38.9 - 50.3 % [facility] Plt 263 150 - 400 K/cumm [facility] MPV 10.4 9.1 - 12.3 fL [facility] RBC 2.49(L) 4.30 - 5.80 M/cumm [facility] MCV 100.8(H) 81.3 - 96.4 fL [facility] MCH 33.7(H) 27.1 - 33.3 pg [facility] MCHC 33.5 32.3 - 35.7 g/dL [facility] RDW CV 15.0(H) 11.1 - 14.9 % [facility] RDW SD 55.5(H) 35.7 - 48.1 fL [facility] NRBC abs 0.03(H) 0.00 - 0.01 K/cumm [facility] Blood 01/04/2025 9:31 PM CDT 01/04/2025 10:33 PM CDT Rosa Beltran LAB BLOOD ORDERABLES Final Re sult Performing Organization Address [facility] de Phone Number [facility] Department [place] [employer] [place] [address] * aPTT (01/04/2025 9:31 PM CDT) aPTT 28 26 - 38 sec Comment: Interpretive Data Heparin therapeutic range: 66.0 - 100.0 seconds. Range based on correlation with therapeutic heparin activity range of 0.3 - 0.7 Units/mL. Current interpretive data was last revised on 2023. Blood 01/04/2025 9:31 PM CDT 01/04/2025 10:25 PM CDT Rosa Beltran LAB BLOOD ORDERABLES Final Re sult Performing Organization Address [facility] Co de Phone Number [facility] [place] [employer] [place] [address] * Protime-INR (01/04/2025 9:31 PM CDT) PT 12.3 10.2 - 13.5 sec INR 1.09 0.90 - 1.20 [facility] Comment: Interpretive data Oral anticoagulant therapeutic ranges: Venous thromboembolism prophylaxis or treatment: 2.0-3.0 CARDIOLOGY Standard range: 2.0-3.0 High-intensity range: 2.5-3.5 Refer to indication-specific guidelines for appropriate target ranges for prosthetic heart valve replacement. Current interpretive data was last revised on 2019. Blood 01/04/2025 9:31 PM CDT 01/04/2025 10:25 PM CDT Rosa Rastaemely CUTTING TABLE OPERATOR FIRST LAB BLOOD ORDERABLES Final Re sult Performing Organization Address [facility] Co de Phone Number [facility] [place] [employer] [place] [address] * (ABNORMAL) Phosphorus (01/04/2025 9:31 PM CDT) Phosphorus, pl 5.3(H) 2.3 - 4.5 mg/dL Blood 01/04/2025 9:31 PM CDT 01/04/2025 10:25 PM CDT [facility] [facility] LAB BLOOD ORDERABLES Final Re sult Performing Organization Address [facility] de Phone Number [facility] [employer] [place] [address] * (ABNORMAL) Magnesium (01/04/2025 9:31 PM CDT) Magnesium 2.6(H) 1.4 - 2.5 mg/dL Blood 01/04/2025 9:31 PM CDT 01/04/2025 10:25 PM CDT [facility]LOOD [facility]LES Final Re sult Performing Organization Address [facility] de Phone Number [facility] [employer] [place] [address] * (ABNORMAL) Hepatic function panel (01/04/2025 9:31 PM CDT) Bilirubin, total 0.4 0.1 - 1.2 mg/dL Bilirubin, direct 0.2 0.1 - 0.3 mg/dL [facility] Protein, pl 6.2(L) 6.5 - 8.5 g/dL [facility] Albumin 3.1(L) 3.5 - 5.0 g/dL [facility] Alk phos 49 40 - 130 Units/L [facility] ALT 13 7 - 55 Units/L [facility] AST 28 10 - 50 Units/L [facility] Blood 01/04/2025 9:31 PM CDT 01/04/2025 10:25 PM CDT Rosa Beltran NP LAB BLOOD ORDERABLES Final Re sult [facility] [place] [address] * (ABNORMAL) Basic metabolic panel (01/04/2025 9:31 PM CDT) Sodium 139 135 - 145 mmol/L Potassium, pl 3.7 3.3 - 4.9 mmol/L [facility] Chloride 105 97 - 110 mmol/L [facility] CO2 21(L) 22 - 32 mmol/L [facility] Anion gap 13 2 - 15 mmol/L [facility] BUN 58(H) 6 - 25 mg/dL [facility] Creatinine 2.71(H) 0.80 - 1.30 mg/dL [facility] Glucose 91 70 - 199 mg/dL [facility] Comment: Interpretive Data Fasting glucose >/= 126 [...] 2022. Calcium 8.7 8.5 - 10.3 mg/dL [facility] Blood 01/04/2025 9:31 PM CDT 01/04/2025 10:25 PM CDT Rosa Beltran NP LAB BLOOD ORDERABLES Final Re sult Performing Organization Address [facility] Co de Phone Number [facility] [place] [address] * POCT glucose (01/04/2025 9:25 PM CDT) Glucose, POC 97 70 - 199 mg/dL Blood 01/04/2025 9:25 PM CDT 01/04/2025 9:25 PM CDT Parth Dalton MD LAB POCT ORDERABLES - DEVICE Final Result Performing Organization Address [facility] Co de Phone Number [facility] [place] [address] * POCT glucose (01/04/2025 7:29 PM CDT) Glucose, POC 95 70 - 199 mg/dL Blood 01/04/2025 7:29 PM CDT 01/04/2025 7:29 PM CDT Parth Dalton MD LAB POCT ORDERABLES - DEVICE Final Result Performing Organization Address City/[facility] Co de Phone Number [facility] [place] [address] * POCT glucose (01/04/2025 3:55 PM CDT) Glucose, POC 88 70 - 199 mg/dL Blood 01/04/2025 3:55 PM CDT 01/04/2025 3:55 PM CDT Parth Dalton MD LAB POCT ORDERABLES - DEVICE Final Result Performing Organization Address [facility] de Phone Number CYNTHIA [facility] [place] [address] * (ABNORMAL) eGFR (01/04/2025 11:48 AM CDT) Pathologist [facility] eGFR 25(L) >=60 mL/min/1. 73 m2 Comment: [...] ORDERABLES Final Re sult Performing Organization Address [facility] Co de Phone Number [facility] [place] [address] * (ABNORMAL) Basic metabolic panel (01/04/2025 11:48 AM CDT) Pathologist [facility] Sodium 138 135 - 145 mmol/L Potassium, pl 3.9 3.3 - 4.9 mmol/L [facility] Chloride 102 97 - 110 mmol/L [facility] CO2 22 22 - 32 mmol/L [facility] Anion gap 14 2 - 15 mmol/L [facility] BUN 58(H) 6 - 25 mg/dL [facility] Creatinine 2.62(H) 0.80 - 1.30 mg/dL [facility] Glucose 103 70 - 199 mg/dL [facility] Comment: Interpretive Data Fasting glucose >/= 126 [...] 2022. Calcium 8.9 8.5 - 10.3 mg/dL [facility] Blood 01/04/2025 11:4 8 AM CDT 01/04/2025 12:05 PM CDT Parth Dalton MD LAB BLOOD ORDERABLES Final Re sult [facility] Department [place] [employer] [place] [address] * POCT glucose (01/04/2025 11:47 AM CDT) Glucose, POC 109 70 - 199 mg/dL Blood 01/04/2025 11:4 7 AM CDT 01/04/2025 11:47 AM CDT Parth Dalton MD LAB POCT ORDERABLES - DEVICE Final Result Performing Organization Address City/[facility]/ZIP Co de Phone Number [facility] Department [place] [employer] [place] [address] * POCT glucose (01/04/2025 7:49 AM CDT) Glucose, POC 102 70 - 199 mg/dL Blood 01/04/2025 7:49 AM CDT 01/04/2025 7:49 AM CDT us Parth Dalton MD LAB POCT ORDERABLES - DEVICE Final Result Performing Organization Address [facility] de Phone Number [facility] [place] [address] * (ABNORMAL) POCT glucose (01/04/2025 7:47 AM CDT) Glucose, POC 68(L) 70 - 199 mg/dL Blood 01/04/2025 7:47 AM CDT 01/04/2025 7:47 AM CDT us Parth Dalton MD LAB POCT ORDERABLES - DEVICE Final Result Performing Organization Address [facility] de Phone Number [facility] [place] [address] * POCT glucose (01/04/2025 4:08 AM CDT) Glucose, POC 95 70 - 199 mg/dL Blood 01/04/2025 4:08 AM CDT 01/04/2025 4:08 AM CDT us Parth Dalton MD LAB POCT ORDERABLES - DEVICE Final Result Performing Organization Address [facility] de Phone Number [facility] [employer] [place] [address] * (ABNORMAL) POCT glucose (01/04/2025 4:03 AM CDT) Glucose, POC 65(L) 70 - 199 mg/dL Blood 01/04/2025 4:03 AM CDT 01/04/2025 4:03 AM CDT us Parth Dalton MD LAB POCT ORDERABLES - DEVICE Final Result Performing Organization Address [facility] de Phone Number [facility] [place] [employer] [place] [address] * Oxyhemoglobin, central venous (01/04/2025 12:06 AM CDT) Oxyhemoglobin, CV 62.7 % Comment: Interpretive Data No reference range established. Current interpretive data was last revised 2019. Blood 01/04/2025 12:0 6 AM CDT 01/04/2025 12:14 AM CDT Parth Dalton MD LAB BLOOD ORDERABLES Final Re sult Performing Organization Address [facility] Co de Phone Number [facility] [employer] [place] [address] * Potassium, whole blood (01/04/2025 12:06 AM CDT) Pathologist [facility] Potassium, bld 4.3 3.3 - 4.9 mmol/L Blood 01/04/2025 12:0 6 AM CDT 01/04/2025 12:14 AM CDT Parth Dalton MD LAB BLOOD ORDERABLES Final Re sult Performing Organization Address [facility] Co de Phone Number [facility] [place] [address] * (ABNORMAL) eGFR (01/04/2025 12:06 AM CDT) [...] 01/04/2025 12:20 AM CDT us Marsha Villarreal CUTTING TABLE OPERATOR FIRST LAB BLOOD ORDERABLES Final Re sult Performing Organization Address [facility] Co de Phone Number [facility] [place] [address] * POCT glucose (01/04/2025 12:06 AM CDT) Glucose, POC 96 70 - 199 mg/dL Blood 01/04/2025 12:0 6 AM CDT 01/04/2025 12:06 AM CDT us Parth Dalton MD LAB POCT ORDERABLES - DEVICE Final Result Performing Organization Address [facility] Co de Phone Number [facility] [place] [address] * Lactate, whole blood (01/04/2025 12:06 AM CDT) Lactate, bld 1.7 0.7 - 2.0 mmol/L Blood 01/04/2025 12:0 6 AM CDT 01/04/2025 12:14 AM CDT us Sravan Lugo PA LAB BLOOD ORDERABLES Raquel l Result Performing Organization Address [facility]/ZIP Co de Phone Number [facility] [place] [address] * (ABNORMAL) CBC without differential (01/04/2025 12:06 AM CDT) WBC 7.03 3.80 - 9.90 K/cumm Hgb 7.8(L) 13.0 - 17.5 g/dL [facility] Hct 23.2(L) 38.9 - 50.3 % [facility] Plt 203 150 - 400 K/cumm [facility] MPV 10.4 9.1 - 12.3 fL [facility] RBC 2.32(L) 4.30 - 5.80 M/cumm [facility] MCV 100.0(H) 81.3 - 96.4 fL [facility] MCH 33.6(H) 27.1 - 33.3 pg [facility] MCHC 33.6 32.3 - 35.7 g/dL [facility] RDW CV 14.9 11.1 - 14.9 % [facility] RDW SD 54.5(H) 35.7 - 48.1 fL [facility] NRBC abs 0.03(H) 0.00 - 0.01 K/cumm [facility] Blood 01/04/2025 12:0 6 AM CDT 01/04/2025 12:19 AM CDT Nicole Ho CUTTING TABLE OPERATOR FIRST LAB BLOOD ORDERABLES F inal Result [facility] [place] [address] * (ABNORMAL) Phosphorus (01/04/2025 12:06 AM CDT) Pathologist [facility] Phosphorus, pl 5.9(H) 2.3 - 4.5 mg/dL Blood 01/04/2025 12:0 6 AM CDT 01/04/2025 12:12 AM CDT Marsha Villarreal NP LAB BLOOD ORDERABLES Final Re sult Performing Organization Address City/[facility]/ZIP Co de Phone Number [facility] [place] [address] * (ABNORMAL) Magnesium (01/04/2025 12:06 AM CDT) Pathologist [facility] Magnesium 2.6(H) 1.4 - 2.5 mg/dL Blood 01/04/2025 12:0 6 AM CDT 01/04/2025 12:12 AM CDT Parth Dalton MD LAB BLOOD ORDERABLES Final Re sult Performing Organization Address [facility] Co de Phone Number [facility] [place] [address] * (ABNORMAL) Basic metabolic panel (01/04/2025 12:06 AM CDT) [facility] Sodium 137 135 - 145 mmol/L Potassium, pl 4.4 3.3 - 4.9 mmol/L [facility] Chloride 102 97 - 110 mmol/L [facility] CO2 23 22 - 32 mmol/L [facility] Anion gap 12 2 - 15 mmol/L [facility] BUN 53(H) 6 - 25 mg/dL [facility] Creatinine 2.54(H) 0.80 - 1.30 mg/dL [facility] Glucose 100 70 - 199 mg/dL [facility] Comment: Interpretive Data Fasting glucose >/= 126 [...] 2022. Calcium 8.6 8.5 - 10.3 mg/dL [facility] Blood 01/04/2025 12:0 6 AM CDT 01/04/2025 12:12 AM CDT us Marsha Villarreal NP LAB BLOOD ORDERABLES Final Re sult Performing Organization Address City/[facility] Co de Phone Number [facility] [place] [address] * POCT glucose (01/03/2025 8:01 PM CDT) Glucose, POC 98 70 - 199 mg/dL Blood 01/03/2025 8:01 PM CDT 01/03/2025 8:01 PM CDT Parth Dalton MD LAB POCT ORDERABLES - DEVICE Final Result Performing Organization Address [facility] de Phone Number [facility] [place] [address] * XR Chest 1 View (01/03/2025 7:20 PM CDT) Anatomical Region Laterality Modality Body, Chest N/A Digital Radiogra phy 01/04/2025 7:42 AM CDT Impressions 01/04/2025 7:42 AM CDT Comparison is made to prior chest radiograph dated 01/02/2025. Tracheostomy tubing projects over the upper thoracic trachea. Gastric tube courses caudally below the diaphragm, beyond the [id number]. Sternotomy plate are unchanged. There is left [...] courses caudally below the diaphragm, beyond the [id number]. Sternotomy plate are unchanged. There is left atrial appendage clip. Tip of a right internal jugular central venous catheter terminates in the superior vena cava. Left-sided chest tube is in place. No significant interval change in mild bibasilar atelectasis. No pneumothorax. Stable cardiomegaly. Electronically signed by: Lupe Garland M.D. us Devyn Palacios CUTTING TABLE OPERATOR FIRST IMG XR PROCEDURES Final Resul t * [...] plan with the ICU team and other medical/implementation consultant staff, making frequent assessments and decisions [...] Lactate, whole blood (01/03/2025 6:20 PM CDT) [facility] Lactate, bld 2.2(H) 0.7 - 2.0 mmol/L Blood 01/03/2025 6:20 PM CDT 01/03/2025 6:28 PM CDT us Jyotsna Salazar CUTTING TABLE OPERATOR FIRST LAB BLOOD ORDERABLES Final Result Performing Organization Address City/[facility]/ZIP Co de Phone Number [facility] [place] [address] * POCT glucose (01/03/2025 4:59 PM CDT) [facility] Glucose, POC 106 70 - 199 mg/dL Blood 01/03/2025 4:59 PM CDT 01/03/2025 4:59 PM CDT us Parth Dalton MD LAB POCT ORDERABLES - DEVICE Final Result Performing Organization Address [facility] Co de Phone Number [facility] [employer] [place] [address] * MRSA Only (Staphylococcus aureus) Culture Nasal (01/03/2025 11:26 AM CDT) [facility] Report Final Report: Negative Nasal 01/03/2025 11:2 6 AM CDT 01/03/2025 11:59 AM CDT Narrative [facility] - 01/04/2025 1:37 PM CDT Testing performed by [facility] ([phone]). us Seema Palma DNP LAB MICROBIOLOGY - GENE RAL ORDERABLES Final Result Performing Organization Address [facility] Co de Phone Number [facility] [place], [place] [id number] * (ABNORMAL) eGFR (01/03/2025 11:26 AM CDT) [...] 01/03/2025 11:48 AM CDT us Seema Palma [facility] LAB BLOOD ORDERABLES nal Result [facility] Department [place] [address] * (ABNORMAL) Basic metabolic panel (01/03/2025 11:26 AM CDT) Pathologist [facility] Sodium 136 135 - 145 mmol/L Potassium, pl 3.7 3.3 - 4.9 mmol/L [facility] Chloride 100 97 - 110 mmol/L [facility] CO2 22 22 - 32 mmol/L [facility] Anion gap 14 2 - 15 mmol/L [facility] BUN 45(H) 6 - 25 mg/dL [facility] Creatinine 2.21(H) 0.80 - 1.30 mg/dL [facility] Glucose 104 70 - 199 mg/dL [facility] Comment: Interpretive Data Fasting glucose >/= 126 [...] 2022. Calcium 8.4(L) 8.5 - 10.3 mg/dL [facility] Blood 01/03/2025 11:2 6 AM CDT 01/03/2025 11:48 AM CDT Seema Palma [facility] LAB BLOOD ORDERABLES Fi nal Result Performing Organization Address [facility] Co de Phone Number [facility] [place] [address] * POCT glucose (01/03/2025 8:20 AM CDT) Glucose, POC 108 70 - 199 mg/dL Blood 01/03/2025 8:20 AM CDT 01/03/2025 8:20 AM CDT Parth Dalton MD LAB POCT ORDERABLES - DEVICE Final Result Performing Organization Address [facility] Co de Phone Number [facility] Department [place] [employer] [place] [address] * POCT glucose (01/03/2025 4:17 AM CDT) Glucose, POC 102 70 - 199 mg/dL Blood 01/03/2025 4:17 AM CDT 01/03/2025 4:17 AM CDT Parth Dalton MD LAB POCT ORDERABLES - DEVICE Final Result Performing Organization Address [facility]/ZIP Co de Phone Number CYNTHIA [facility] Fernanda [facility] [place] [address] * POCT glucose (01/03/2025 12:10 AM CDT) Glucose, POC 134 70 - 199 mg/dL Blood 01/03/2025 12:1 0 AM CDT 01/03/2025 12:10 AM CDT Parth Dalton MD LAB POCT ORDERABLES - DEVICE Final Result Performing Organization Address [facility] [place] [address] * Infection Prevention Blanche auris PCR, surveillance Axilla/Groin (01/03/2025 12:06 AM CDT) [facility] Blanche auris DNA Not Detected Not Detected [facility] Comment: Interpretive Data Testing performed by [facility] Molecular Infectious Disease Laboratory using the Daquan flaquita 6800 Blanche auris assay. This assay detects DNA from Blanche auris using Real-Time PCR. This assay is laboratory developed and is not cleared by the [place] Food and Drug Administration. The performance characteristics have been verified by the [facility] Infectious Disease Laboratory. Axilla/Groin 01/03/2025 12:0 6 AM CDT 01/03/2025 2:54 AM CDT Narrative [facility] 01/03/2025 12:43 PM CDT Order placed by [facility] due to ring surveillance. us Instant Order Generic Provider LAB MICROBIOLOGY - GENERAL ORDERABLES Final Result Performing Organization Address [facility] Co de Phone Number CYNTHIA [facility] Fernanda [facility] [place] [address] [facility] * Oxyhemoglobin, central venous (01/03/2025 12:06 AM CDT) [facility] Oxyhemoglobin, CV 64.7 % Comment: Interpretive Data No reference range established. Current interpretive data was last revised 2019. Blood 01/03/2025 12:0 6 AM CDT 01/03/2025 12:18 AM CDT Magy Kaur NP LAB BLOOD ORDERABLES F inal Result Performing Organization Address City/[facility]/ZIP Co de Phone Number [facility] [place] [address] * Potassium, whole blood (01/03/2025 12:06 AM CDT) Potassium, bld 3.7 3.3 - 4.9 mmol/L Blood 01/03/2025 12:0 6 AM CDT 01/03/2025 12:18 AM CDT Parth Dalton MD LAB BLOOD ORDERABLES Final Re sult Performing Organization Address [facility] Co de Phone Number [facility] [place] [address] * (ABNORMAL) eGFR (01/03/2025 12:06 AM CDT) eGFR 34(L) >=60 mL/min/1. 73 m2 Comment: [...] 01/03/2025 12:18 AM CDT us Marsha Villarreal CUTTING TABLE OPERATOR FIRST LAB BLOOD ORDERABLES Final Re sult [facility] [place] [address] * (ABNORMAL) Differential, auto (01/03/2025 12:06 AM CDT) Neutrophil abs 4.02 1.50 - 6.50 K/cumm Imm gran abs 0.03 0.00 - 0.10 K/cumm [facility] Lymphocyte abs 0.26(L) 0.80 - 3.30 K/cumm [facility] Monocyte abs 0.26 0.20 - 0.80 K/cumm [facility] Eosinophil abs 0.01 0.00 - 0.50 K/cumm [facility] Basophil abs 0.01 0.00 - 0.10 K/cumm [facility] Neutrophil pct 87.5 % [facility] Comment: Interpretive Data Percent cell count reference ranges are not reported, since discordance with absolute values may lead to misinterpretation of CBC data. Current Interpretive Data was last revised on 2017. Imm gran pct 0.7 % [facility] Comment: Interpretive Data Percent cell count reference ranges are not reported, since discordance with absolute values may lead to misinterpretation of CBC data. Current Interpretive Data was last revised on 2017. Lymphocyte pct 5.7 % [facility] Comment: Interpretive Data Percent cell count reference ranges are not reported, since discordance with absolute values may lead to misinterpretation of CBC data. Current Interpretive Data was last revised on 2017. Monocyte pct 5.7 % [facility] Comment: Interpretive Data Percent cell count reference ranges are not reported, since discordance with absolute values may lead to misinterpretation of CBC data. Current Interpretive Data was last revised on 2017. Eosinophil pct 0.2 % [facility] Comment: Interpretive Data Percent cell count reference ranges are not reported, since discordance with absolute values may lead to misinterpretation of CBC data. Current Interpretive Data was last revised on 2017. Basophil pct 0.2 % [facility] Comment: Interpretive Data Percent cell count reference ranges are not reported, since discordance with absolute values may lead to misinterpretation of CBC data. Current Interpretive Data was last revised on 2017. Blood 01/03/2025 12:0 6 AM CDT 01/03/2025 12:18 AM CDT us Marla Francois NP LAB BLOOD ORDERABLES Raquel amaya Result [facility] [place] [address] * (ABNORMAL) CBC with auto differential (01/03/2025 12:06 AM CDT) WBC 4.59 3.80 - 9.90 K/cumm Hgb 7.8(L) 13.0 - 17.5 g/dL [facility] Hct 23.6(L) 38.9 - 50.3 % [facility] Plt 149(L) 150 - 400 K/cumm [facility] MPV 10.4 9.1 - 12.3 fL [facility] RBC 2.34(L) 4.30 - 5.80 M/cumm [facility] MCV 100.9(H) 81.3 - 96.4 fL [facility] MCH 33.3 27.1 - 33.3 pg [facility] MCHC 33.1 32.3 - 35.7 g/dL [facility] RDW CV 14.5 11.1 - 14.9 % [facility] RDW SD 53.8(H) 35.7 - 48.1 fL [facility] NRBC abs 0.02(H) 0.00 - 0.01 K/cumm [facility] Blood 01/03/2025 12:0 6 AM CDT 01/03/2025 12:18 AM CDT us Marla Francois CUTTING TABLE OPERATOR FIRST LAB BLOOD ORDERABLES Raquel l Result Performing Organization Address [facility] Co de Phone Number [facility] [place] [address] * Type and screen (01/03/2025 12:06 AM CDT) Becca, indirect Negative ABO Rh A Positive [facility] Blood 01/03/2025 12:0 6 AM CDT 01/03/2025 12:21 AM CDT Narrative [facility] - 01/03/2025 1:23 AM CDT Has the patient had Daratumumab or Isatuximab in the past 6 months?->Unknown us Nicole Ho CUTTING TABLE OPERATOR FIRST LAB BLOOD BANK TEST OR DERABLES Final Result Performing Organization Address [facility] Co de Phone Number [facility] [place] [address] * (ABNORMAL) Phosphorus (01/03/2025 12:06 AM CDT) Pathologist [facility] Phosphorus, pl 5.3(H) 2.3 - 4.5 mg/dL Blood 01/03/2025 12:0 6 AM CDT 01/03/2025 12:18 AM CDT us Marsha Villarreal CUTTING TABLE OPERATOR FIRST LAB BLOOD ORDERABLES Final Re sult Performing Organization Address [facility] Co de Phone Number [facility] [place] [address] * (ABNORMAL) Magnesium (01/03/2025 12:06 AM CDT) Magnesium 2.6(H) 1.4 - 2.5 mg/dL Blood 01/03/2025 12:0 6 AM CDT 01/03/2025 12:18 AM CDT Marsha Villarreal CUTTING TABLE OPERATOR FIRST LAB BLOOD ORDERABLES Final Re sult Performing Organization Address City/[facility]/ZIP Co de Phone Number [facility] [place] [address] * (ABNORMAL) Basic metabolic panel (01/03/2025 12:06 AM CDT) Pathologist [facility] Sodium 136 135 - 145 mmol/L Potassium, pl 3.8 3.3 - 4.9 mmol/L [facility] Chloride 98 97 - 110 mmol/L [facility] CO2 24 22 - 32 mmol/L [facility] Anion gap 14 2 - 15 mmol/L [facility] BUN 43(H) 6 - 25 mg/dL [facility] Creatinine 2.01(H) 0.80 - 1.30 mg/dL [facility] Glucose 142 70 - 199 mg/dL [facility] Comment: Interpretive Data Fasting glucose >/= 126 [...] 2022. Calcium 8.4(L) 8.5 - 10.3 mg/dL [facility] Blood 01/03/2025 12:0 6 AM CDT 01/03/2025 12:18 AM CDT Marsha Villarreal CUTTING TABLE OPERATOR FIRST LAB BLOOD ORDERABLES Final Re sult Performing Organization Address [facility]/ZIP Co de Phone Number [facility] Fernanda [facility] [place] [address] * POCT glucose (01/02/2025 7:52 PM CDT) Glucose, POC 125 70 - 199 mg/dL Blood 01/02/2025 7:52 PM CDT 01/02/2025 7:52 PM CDT us Parth Dalton MD LAB POCT ORDERABLES - DEVICE Final Result Performing Organization Address [facility] Co de Phone Number [facility] [place] [employer] [place] [address] * Oxyhemoglobin, central venous (01/02/2025 7:50 PM CDT) Oxyhemoglobin, CV 67.3 % Comment: Interpretive Data No reference range established. Current interpretive data was last revised 2019. Blood 01/02/2025 7:50 PM CDT 01/02/2025 7:57 PM CDT us Magy Kaur CUTTING TABLE OPERATOR FIRST LAB BLOOD ORDERABLES F inal Result Performing Organization Address [facility] de Phone Number [facility] [employer] [place] [address] * Potassium, whole blood (01/02/2025 7:50 PM CDT) Potassium, bld 4.3 3.3 - 4.9 mmol/L Blood 01/02/2025 7:50 PM CDT 01/02/2025 7:57 PM CDT us Jyotsna Salazar CUTTING TABLE OPERATOR FIRST LAB BLOOD ORDERABLES Final Result Performing Organization Address [facility] Co de Phone Number [facility] [employer] [place] [address] * Critical Care (01/02/2025 7:47 PM CDT) [...] plan with the ICU team and other medical/implementation consultant staff, making frequent assessments and decisions [...] or life-threatening deterioration of the following conditions: Nicole Ho NP IN CLINIC/BEDSIDE JUAN IVY [...] the distal tip is out of the [id number]. Right internal jugular approach central venous catheter [...] the distal tip is out of the [id number]. Right internal jugular approach central venous catheter [...] Electronically signed by: José Miguel Shore M.D. us Devyn Palacios CUTTING TABLE OPERATOR FIRST IMG XR PROCEDURES Final Resul t * POCT glucose (01/02/2025 3:05 PM CDT) Glucose, POC 93 70 - 199 mg/dL Blood 01/02/2025 3:05 PM CDT 01/02/2025 3:05 PM CDT Parth Dalton MD LAB POCT ORDERABLES - DEVICE Final Result [facility] [place] [address] * Oxyhemoglobin, central venous (01/02/2025 3:01 PM CDT) Oxyhemoglobin, CV 44.0 % Comment: Interpretive Data No reference range established. Current interpretive data was last revised 2019. Blood 01/02/2025 3:01 PM CDT 01/02/2025 3:23 PM CDT Magy Kaur CUTTING TABLE OPERATOR FIRST LAB BLOOD ORDERABLES F inal Result Performing Organization Address [facility] Co de Phone Number [facility] [place] [address] * Potassium, whole blood (01/02/2025 3:01 PM CDT) Potassium, bld 4.5 3.3 - 4.9 mmol/L Blood 01/02/2025 3:01 PM CDT 01/02/2025 3:22 PM CDT Jyotsna Salazar CUTTING TABLE OPERATOR FIRST LAB BLOOD ORDERABLES Final Result Performing Organization Address [facility] de Phone Number [facility] [place] [address] * POCT glucose (01/02/2025 11:35 AM CDT) Glucose, POC 88 70 - 199 mg/dL Blood 01/02/2025 11:3 5 AM CDT 01/02/2025 11:35 AM CDT Parth Dalton MD LAB POCT ORDERABLES - DEVICE Final Result Performing Organization Address [facility] Co de Phone Number [facility] [place] [address] * Oxyhemoglobin, central venous (01/02/2025 11:01 AM CDT) Oxyhemoglobin, CV 46.3 % Comment: Interpretive Data No reference range established. Current interpretive data was last revised 2019. Blood 01/02/2025 11:0 1 AM CDT 01/02/2025 11:05 AM CDT Magy Kaur CUTTING TABLE OPERATOR FIRST LAB BLOOD ORDERABLES F inal Result Performing Organization Address City/[facility]/ZIP Co de Phone Number CYNTHIA [facility] [place] [address] * Potassium, whole blood (01/02/2025 11:01 AM CDT) Potassium, bld 4.8 3.3 - 4.9 mmol/L Blood 01/02/2025 11:0 1 AM CDT 01/02/2025 11:05 AM CDT us Jyotsna Salazar CUTTING TABLE OPERATOR FIRST LAB BLOOD ORDERABLES Final Result Performing Organization Address [facility] de Phone Number [facility] [place] [address] * (ABNORMAL) Urinalysis reflex to microscopic (01/02/2025 9:53 AM CDT) Color, ur Yellow Yellow Clarity, ur Clear Clear [facility] Specific gravity, ur 1.038(H) 1.003 - 1.030 [facility] pH, urine 6.0 [facility] Comment: Interpretive Data U rine pH is affected by diet, medications, systemic acid-base disturbances, and renal tubular function. pH may affect urinary stone formation. For example, urine pH below 6.0 may help reduce the tendency for calcium phosphate stones and pH greater than 6.0 may reduce the tendency for uric acid stone formation. Source: [facility] [employer] Current Interpretive Data was last revised on 2017 Protein, ur ql 2+(A) Negative [facility] Glucose, ur ql Negative Negative [facility] Ketones, ur 1+(A) Negative [facility] Bilirubin, ur Negative Negative [facility] Blood, ur 2+(A) Negative [facility] Urobilinogen, ur <2.0 <2.0 mg/dL [facility] Nitrite, ur Negative Negative [facility] Leukocyte esterase, ur Negative Negative [facility] UA reflex comment Reflex to microscopic UA will be performed. [facility] Urine 01/02/2025 9:53 AM CDT 01/02/2025 10:00 AM CDT us Marla Francois CUTTING TABLE OPERATOR FIRST LAB URINE ORDERABLES Raquel l Result Performing Organization Address [facility] Co de Phone Number [facility] [place] [address] * (ABNORMAL) Urinalysis, microscopic only (01/02/2025 9:53 AM CDT) WBC, ur 0-5 0 - 5 /HPF RBC, ur 11-20(A) 0 - 2 /HPF [facility] Epithelial cells, squamous, ur 1-5 0 - 5 /HPF [facility] Mucous, ur Present(A) [facility] Hyaline casts, ur 21-50(A) 0 - 10 /LPF [facility] Urine 01/02/2025 9:53 AM CDT 01/02/2025 10:00 AM CDT us Marla Francois NP LAB URINE ORDERABLES Raquel l Result Performing Organization Address [facility] Co de Phone Number [facility] [place] [address] * POCT glucose (01/02/2025 8:33 AM CDT) Glucose, POC 80 70 - 199 mg/dL Blood 01/02/2025 8:33 AM CDT 01/02/2025 8:33 AM CDT us Parth Dalton MD LAB POCT ORDERABLES - DEVICE Final Result Performing Organization Address [facility] [place] [address] * Critical Care (01/02/2025 7:09 AM CDT) [...] plan with the ICU team and other medical/implementation consultant staff, making frequent assessments and decisions [...] in the medical record us Marla Francois CUTTING TABLE OPERATOR FIRST IN CLINIC/BEDSIDE ORDERAB LES Final Result * Potassium, whole blood (01/02/2025 6:29 AM CDT) Potassium, bld 3.8 3.3 - 4.9 mmol/L Blood 01/02/2025 6:29 AM CDT 01/02/2025 6:33 AM CDT us Jyotsna Salazar CUTTING TABLE OPERATOR FIRST LAB BLOOD ORDERABLES Final Result [facility] [place] [address] * POCT glucose (01/02/2025 4:03 AM CDT) Glucose, POC 93 70 - 199 mg/dL Blood 01/02/2025 4:03 AM CDT 01/02/2025 4:03 AM CDT Parth Dalton MD LAB POCT ORDERABLES - DEVICE Final Result Performing Organization Address [facility] de Phone Number [facility] [place] [employer] [place] [address] * Oxyhemoglobin, central venous (01/02/2025 12:01 AM CDT) Pathologist [facility] Oxyhemoglobin, CV 61.9 % Comment: Interpretive Data No reference range established. Current interpretive data was last revised 2019. Blood 01/02/2025 12:0 1 AM CDT 01/02/2025 12:29 AM CDT Magy Kaur NP LAB BLOOD ORDERABLES F inal Result Performing Organization Address [facility] de Phone Number [facility] [place] [address] * Potassium, whole blood (01/02/2025 12:01 AM CDT) [facility] Potassium, bld 3.6 3.3 - 4.9 mmol/L Blood 01/02/2025 12:0 1 AM CDT 01/02/2025 12:29 AM CDT Parth Dalton MD LAB BLOOD ORDERABLES Final Re sult Performing Organization Address [facility] de Phone Number [facility] [place] [address] * (ABNORMAL) eGFR (01/02/2025 12:01 AM CDT) [facility] eGFR 46(L) >=60 mL/min/1. 73 m2 Comment: [...] 01/02/2025 12:38 AM CDT us Marsha Villarreal CUTTING TABLE OPERATOR FIRST LAB BLOOD ORDERABLES Final Re sult [facility] [place] [address] * (ABNORMAL) CBC without differential (01/02/2025 12:01 AM CDT) WBC 3.74(L) 3.80 - 9.90 K/cumm Hgb 8.6(L) 13.0 - 17.5 g/dL [facility] Hct 25.2(L) 38.9 - 50.3 % [facility] Plt 138(L) 150 - 400 K/cumm [facility] MPV 10.5 9.1 - 12.3 fL [facility] RBC 2.51(L) 4.30 - 5.80 M/cumm [facility] MCV 100.4(H) 81.3 - 96.4 fL [facility] MCH 34.3(H) 27.1 - 33.3 pg [facility] MCHC 34.1 32.3 - 35.7 g/dL [facility] RDW CV 14.4 11.1 - 14.9 % [facility] RDW SD 52.6(H) 35.7 - 48.1 fL [facility] NRBC abs 0.02(H) 0.00 - 0.01 K/cumm [facility] Blood 01/02/2025 12:0 1 AM CDT 01/02/2025 12:40 AM CDT Rosa Beltran CUTTING TABLE OPERATOR FIRST LAB BLOOD ORDERABLES Final Re sult Performing Organization Address City/[facility]/ZIP Co de Phone Number [facility] [place] [employer] [place] [address] * (ABNORMAL) Phosphorus (01/02/2025 12:01 AM CDT) Pathologist [facility] Phosphorus, pl 5.7(H) 2.3 - 4.5 mg/dL Blood 01/02/2025 12:0 1 AM CDT 01/02/2025 12:38 AM CDT Marsha Villarreal CUTTING TABLE OPERATOR FIRST LAB BLOOD ORDERABLES Final Re sult Performing Organization Address [facility] Co de Phone Number [facility] [employer] [place] [address] * Magnesium (01/02/2025 12:01 AM CDT) Pathologist [facility] Magnesium 2.1 1.4 - 2.5 mg/dL Blood 01/02/2025 12:0 1 AM CDT 01/02/2025 12:38 AM CDT Marsha Villarreal CUTTING TABLE OPERATOR FIRST LAB BLOOD ORDERABLES Final Re sult Performing Organization Address City/[facility] Co de Phone Number [place], [place] [id number] * (ABNORMAL) Basic metabolic panel (01/02/2025 12:01 AM CDT) Sodium 138 135 - 145 mmol/L Potassium, pl 3.6 3.3 - 4.9 mmol/L [facility] Chloride 101 97 - 110 mmol/L [facility] CO2 23 22 - 32 mmol/L [facility] Anion gap 14 2 - 15 mmol/L [facility] BUN 33(H) 6 - 25 mg/dL [facility] Creatinine 1.58(H) 0.80 - 1.30 mg/dL [facility] Glucose 103 70 - 199 mg/dL [facility] Comment: Interpretive Data Fasting glucose >/= 126 [...] 2022. Calcium 8.4(L) 8.5 - 10.3 mg/dL [facility] Blood 01/02/2025 12:0 1 AM CDT 01/02/2025 12:38 AM CDT us Marsha Villarreal CUTTING TABLE OPERATOR FIRST LAB BLOOD ORDERABLES Final Re sult Performing Organization Address [facility] Co de Phone Number [facility] Department [place] [employer] [place] [address] * POCT glucose (01/01/2025 11:57 PM CDT) [facility] Glucose, POC 105 70 - 199 mg/dL Blood 01/01/2025 11:5 7 PM CDT 01/01/2025 11:57 PM CDT us Parth Dalton MD LAB POCT ORDERABLES - DEVICE Final Result Performing Organization Address [facility] Co de Phone Number [facility] [place] [address] * XR Chest 1 View (01/01/2025 9:18 PM CDT) Anatomical Region Laterality Modality Body, Chest N/A Computed Radiogr aphy 01/02/2025 9:25 AM CDT Impressions 01/02/2025 11:05 AM CDT Comparison is made with multiple prior exams, most recently radiograph dated 12/31/2024. Patient is rotated. Patient is status post tracheostomy. Gastric tube extends into the stomach, the tip terminates out of the [id number]. Right internal jugular vein approach intravenous catheter [...] stomach, the tip terminates out of the [id number]. Right internal jugular vein approach intravenous catheter [...] Stable enlarged cardiac silhouette. Dictated by: Jane oRse M.D. The radiology attending physician has personally reviewed this study, and had reviewed and/or edited this written report and agrees with it. Electronically signed by: Geni Mckeon M.D. us Devyn Palacios CUTTING TABLE OPERATOR FIRST IMG XR PROCEDURES Final Resul t * [...] plan with the ICU team and other medical/implementation consultant staff, making frequent assessments and decisions [...] of the following conditions: us Nicole Ho CUTTING TABLE OPERATOR FIRST IN CLINIC/BEDSIDE JUAN IVY Final Result * POCT glucose (01/01/2025 7:47 PM CDT) Glucose, POC 105 70 - 199 mg/dL Blood 01/01/2025 7:47 PM CDT 01/01/2025 7:47 PM CDT Parth Dalton MD LAB POCT ORDERABLES - DEVICE Final Result [facility] [place] [address] * Potassium, whole blood (01/01/2025 6:06 PM CDT) Pathologist [facility] Potassium, bld 3.9 3.3 - 4.9 mmol/L Blood 01/01/2025 6:06 PM CDT 01/01/2025 6:12 PM CDT us Jyotsna Salazar CUTTING TABLE OPERATOR FIRST LAB BLOOD ORDERABLES Final Result [facility] [place] [address] * POCT glucose (01/01/2025 5:06 PM CDT) [facility] Glucose, POC 116 70 - 199 mg/dL Blood 01/01/2025 5:06 PM CDT 01/01/2025 5:06 PM CDT us Parth Dalton MD LAB POCT ORDERABLES - DEVICE Final Result Performing Organization Address City/[facility] Co de Phone Number [facility] [place] [address] * (ABNORMAL) POC Blood Gas and Chemistries, Venous - (01/01/2025 12:18 PM CDT) [facility] pH, Isak POC 7.38 7.32 - 7.43 pCO2, isak POC 38(L) 40 - 50 mmHg [facility] pO2, isak POC 30 mmHg [facility] Na, POC 135 135 - 145 mmol/L [facility] K POC 3.8 3.3 - 4.9 mmol/L [facility] Comment: Interpretive Data Not all point of care methods assess for hemolysis. Confirm with instrument and retest K+ if not consistent with clinical signs and symptoms. Current Interpretive Data was last revised on 2023. Cl, POC 105 97 - 110 mmol/L [facility] Glucose, POC 118 70 - 199 mg/dL [facility] Lactate POC 1.5 0.7 - 2.0 mmol/L [facility] O2 Sat, Isak POC (Felipe) Incalculable % [facility] Base excess, POC -2.3 mmol/L [facility] HCO3, Isak POC 22 20 - 30 mmol/L [facility] Hct, POC Incalculable 41.4 - 51.6 % [facility] Total Hb, POC Incalculable 13.8 - 17.2 g/dL [facility] Blood 01/01/2025 12:1 8 PM CDT 01/01/2025 12:18 PM CDT Parth Dalton MD LAB POCT ORDERABLES - DEVICE Final Result Performing Organization Address City/[facility] Co de Phone Number [facility] [place] [employer] [place] [address] * POCT glucose (01/01/2025 11:26 AM CDT) [facility] Glucose, POC 114 70 - 199 mg/dL Blood 01/01/2025 11:2 6 AM CDT 01/01/2025 11:26 AM CDT Parth Dalton MD LAB POCT ORDERABLES - DEVICE Final Result Performing Organization Address City/[facility] Co de Phone Number [facility] [place] [employer] [place] [address] * Critical Care (01/01/2025 8:11 AM CDT) [...] plan with the ICU team and other medical/implementation consultant staff, making frequent assessments and decisions [...] in the medical record us Marla Francois NP IN CLINIC/BEDSIDE ORDERAB LES Final Result * POCT glucose (01/01/2025 7:33 AM CDT) Glucose, POC 99 70 - 199 mg/dL Blood 01/01/2025 7:33 AM CDT 01/01/2025 7:33 AM CDT Parth Dalton MD LAB POCT ORDERABLES - DEVICE Final Result Performing Organization Address [facility] Co de Phone Number [facility] Department [place] [employer] [place] [address] * POCT glucose (01/01/2025 4:22 AM CDT) Glucose, POC 117 70 - 199 mg/dL Blood 01/01/2025 4:22 AM CDT 01/01/2025 4:22 AM CDT Parth Dalton MD LAB POCT ORDERABLES - DEVICE Final Result Performing Organization Address City/[facility] Co de Phone Number [facility] [place] [employer] [place] [address] * Oxyhemoglobin, central venous (01/01/2025 4:21 AM CDT) Oxyhemoglobin, CV 67.4 % Comment: Interpretive Data No reference range established. Current interpretive data was last revised 2019. Blood 01/01/2025 4:21 AM CDT 01/01/2025 4:33 AM CDT Magy Kaur NP LAB BLOOD ORDERABLES F inal Result Performing Organization Address [facility] Co de Phone Number [facility] [place] [employer] [place] [address] * Oxyhemoglobin, central venous (12/31/2024 11:43 PM CDT) Oxyhemoglobin, CV 60.7 % Comment: Interpretive Data No reference range established. Current interpretive data was last revised 2019. Blood 12/31/2024 11:4 3 PM CDT 01/01/2025 12:04 AM CDT Magy Kaur NP LAB BLOOD ORDERABLES F inal Result Performing Organization Address [facility] de Phone Number [facility] [employer] [place] [address] * Potassium, whole blood (12/31/2024 11:43 PM CDT) Potassium, bld 4.4 3.3 - 4.9 mmol/L Blood 12/31/2024 11:4 3 PM CDT 01/01/2025 12:04 AM CDT Parth Dalton MD LAB BLOOD ORDERABLES Final Re sult Performing Organization Address [facility] Co de Phone Number [facility] [employer] [place] [address] * (ABNORMAL) eGFR (12/31/2024 11:43 PM CDT) eGFR 56(L) >=60 mL/min/1. 73 m2 Comment: [...] CDT 01/01/2025 12:08 AM CDT Marsha Villarreal CUTTING TABLE OPERATOR FIRST LAB BLOOD ORDERABLES Final Re sult [facility] Department of Laboratories [place], [place] [id number] * (ABNORMAL) CBC without differential (12/31/2024 11:43 PM CDT) WBC 5.69 3.80 - 9.90 K/cumm Hgb 9.0(L) 13.0 - 17.5 g/dL [facility] Hct 26.8(L) 38.9 - 50.3 % [facility] Plt 108(L) 150 - 400 K/cumm [facility] MPV 10.8 9.1 - 12.3 fL [facility] RBC 2.65(L) 4.30 - 5.80 M/cumm [facility] MCV 101.1(H) 81.3 - 96.4 fL [facility] MCH 34.0(H) 27.1 - 33.3 pg [facility] MCHC 33.6 32.3 - 35.7 g/dL [facility] RDW CV 14.4 11.1 - 14.9 % [facility] RDW SD 53.4(H) 35.7 - 48.1 fL [facility] NRBC abs 0.00 0.00 - 0.01 K/cumm [facility] [facility] Blood 12/31/2024 11:4 3 PM CDT 01/01/2025 12:08 AM CDT Rosa Beltran CUTTING TABLE OPERATOR FIRST LAB BLOOD ORDERABLES Final Re sult Performing Organization Address City/[facility] Co de Phone Number [facility] [place] [address] * Phosphorus (12/31/2024 11:43 PM CDT) Pathologist [facility] Phosphorus, pl 4.4 2.3 - 4.5 mg/dL Blood 12/31/2024 11:4 3 PM CDT 01/01/2025 12:08 AM CDT Marsha Villarreal CUTTING TABLE OPERATOR FIRST LAB BLOOD ORDERABLES Final Re sult Performing Organization Address [facility] Co de Phone Number [facility] [place] [address] * Magnesium (12/31/2024 11:43 PM CDT) [facility] Magnesium 2.3 1.4 - 2.5 mg/dL Blood 12/31/2024 11:4 3 PM CDT 01/01/2025 12:08 AM CDT Marsha Villarreal CUTTING TABLE OPERATOR FIRST LAB BLOOD ORDERABLES Final Re sult Performing Organization Address City/[facility] Co de Phone Number [facility] [place] [address] * (ABNORMAL) Basic metabolic panel (12/31/2024 11:43 PM CDT) Sodium 137 135 - 145 mmol/L Potassium, pl 4.5 3.3 - 4.9 mmol/L [facility] Chloride 103 97 - 110 mmol/L [facility] CO2 23 22 - 32 mmol/L [facility] Anion gap 11 2 - 15 mmol/L [facility] BUN 25 6 - 25 mg/dL [facility] Creatinine 1.33(H) 0.80 - 1.30 mg/dL [facility] Glucose 124 70 - 199 mg/dL [facility] Comment: Interpretive Data Fasting glucose >/= 126 [...] 2022. Calcium 8.4(L) 8.5 - 10.3 mg/dL [facility] Blood 12/31/2024 11:4 3 PM CDT 01/01/2025 12:08 AM CDT us Marsha Villarreal NP LAB BLOOD ORDERABLES Final Re sult Performing Organization Address [facility]/ZIP Co de Phone Number [facility] Department [place] [employer] [place] [address] * POCT glucose (12/31/2024 11:42 PM CDT) Glucose, POC 123 70 - 199 mg/dL Blood 12/31/2024 11:4 2 PM CDT 12/31/2024 11:42 PM CDT Parth Dalton MD LAB POCT ORDERABLES - DEVICE Final Result Performing Organization Address [facility]/ZIP Co de Phone Number [facility] [place] [address] * Oxyhemoglobin, central venous (12/31/2024 8:39 PM CDT) Oxyhemoglobin, CV 67.7 % Comment: Interpretive Data No reference range established. Current interpretive data was last revised 2019. Blood 12/31/2024 8:39 PM CDT 12/31/2024 8:53 PM CDT us Magy Kaur NP LAB BLOOD ORDERABLES F inal Result Performing Organization Address City/[facility]/ZIP Co de Phone Number [facility] [place] [address] * POCT glucose (12/31/2024 8:36 PM CDT) Glucose, POC 127 70 - 199 mg/dL Blood 12/31/2024 8:36 PM CDT 12/31/2024 8:36 PM CDT us Parth Dalton MD LAB POCT ORDERABLES - DEVICE Final Result Performing Organization Address City/[facility]/ZIP Co de Phone Number [facility] [place] [address] * Critical Care (12/31/2024 7:30 PM CDT) [...] plan with the ICU team and other medical/implementation consultant staff, making frequent assessments and decisions [...] or life-threatening deterioration of the following conditions: Nicole Ho CUTTING TABLE OPERATOR FIRST IN CLINIC/BEDSIDE JUAN IVY Final Result * Oxyhemoglobin, central venous (12/31/2024 6:09 PM CDT) Pathologist [facility] Oxyhemoglobin, CV 51.8 % Comment: Interpretive Data No reference range established. Current interpretive data was last revised 2019. Blood 12/31/2024 6:09 PM CDT 12/31/2024 6:20 PM CDT Magy Kaur CUTTING TABLE OPERATOR FIRST LAB BLOOD ORDERABLES F inal Result Performing Organization Address City/[facility]/ZIP Co de Phone Number [facility] [place] [employer] [place] [address] * Potassium, whole blood (12/31/2024 6:09 PM CDT) [facility] Potassium, bld 4.8 3.3 - 4.9 mmol/L Blood 12/31/2024 6:09 PM CDT 12/31/2024 6:20 PM CDT Jyotsna Salazar CUTTING TABLE OPERATOR FIRST LAB BLOOD ORDERABLES Final Result Performing Organization Address City/[facility] Co de Phone Number [facility] [place] [employer] [place] [address] * HIT Antibodies with Reflex to Serotonin Release Assay (LEON) (12/31/2024 6:09 PM CDT) [facility] HIT antibodies Negative Negative HIT Ab CAESAR Units 0.39 0.00 - 0.99 units/mL [facility] Comment: A positive HIT Ab (heparin PF4 [...] CDT 12/31/2024 6:20 PM CDT Devyn Palacios CUTTING TABLE OPERATOR FIRST LAB BLOOD ORDERABLES Final Re sult [facility] [place] [address] * Blood culture Blood (12/31/2024 5:05 PM CDT) Report Final Report: No growth Blood 12/31/2024 5:05 PM CDT 12/31/2024 6:39 PM CDT Narrative [facility] - 01/05/2025 7:00 AM CDT Collection->Peripheral 1. [...] characteristics have been verified by the [facility] Microbiology Laboratory. For questions about this culture, contact the Microbiology Laboratory at [phone]. Interpretive data was last revised on 24. [facility] Palacios CUTTING TABLE OPERATOR FIRST LAB MICROBIOLOGY - GENERAL OR DERABLES Final Result CYNTHIA MURPHY [facility] [place] [address] * Blood culture Blood (12/31/2024 5:05 PM CDT) Report Final Report: No growth Blood 12/31/2024 5:05 PM CDT 12/31/2024 6:39 PM CDT Narrative CYNTHIA [facility] - 01/05/2025 7:00 AM CDT Collection->Peripheral 1. [...] characteristics have been verified by the [facility] Microbiology Laboratory. For questions about this culture, contact the Microbiology Laboratory at [phone]. Interpretive data was last revised on 24. [facility] CUTTING TABLE OPERATOR FIRST LAB MICROBIOLOGY - GENERAL OR DERABLES Final Result Performing Organization Address [facility]/ZIP Co de Phone Number CYNTHIA MURPHY Fernanda [facility] [place] [address] * (ABNORMAL) Urinalysis reflex to microscopic (12/31/2024 4:35 PM CDT) Color, ur Straw Yellow Clarity, ur Clear Clear [facility] Specific gravity, ur 1.020 1.003 - 1.030 [facility] pH, urine 6.0 [facility] Comment: Interpretive Data U rine pH is affected by diet, medications, systemic acid-base disturbances, and renal tubular function. pH may affect urinary stone formation. For example, urine pH below 6.0 may help reduce the tendency for calcium phosphate stones and pH greater than 6.0 may reduce the tendency for uric acid stone formation. Source: [facility] Current Interpretive Data was last revised on 2017 Protein, ur ql 1+(A) Negative [facility] Glucose, ur ql Negative Negative [facility] Ketones, ur Negative Negative [facility] Bilirubin, ur Negative Negative [facility] Blood, ur 1+(A) Negative [facility] Urobilinogen, ur <2.0 <2.0 mg/dL [facility] Nitrite, ur Negative Negative [facility] Leukocyte esterase, ur Negative Negative [facility] UA reflex comment Reflex to microscopic UA will be performed. [facility] Urine 12/31/2024 4:35 PM CDT 12/31/2024 6:21 PM CDT Devyn Palacios NP LAB URINE ORDERABLES Final Re sult Performing Organization Address City/[facility]/ZIP Co de Phone Number CYNTHIA [facility] [place] [address] * (ABNORMAL) Urinalysis, microscopic only (12/31/2024 4:35 PM CDT) WBC, ur 0-5 0 - 5 /HPF RBC, ur 3-5(A) 0 - 2 /HPF [facility] Epithelial cells, squamous, ur 1-5 0 - 5 /HPF [facility] Bacteria, ur Trace(A) [facility] Mucous, ur Present(A) [facility] Hyaline casts, ur 11-20(A) 0 - 10 /LPF [facility] Granular casts, ur 11-20(A) 0 - 0 /LPF [facility] Urine 12/31/2024 4:35 PM CDT 12/31/2024 6:21 PM CDT Devyn Palacios CUTTING TABLE OPERATOR FIRST LAB URINE ORDERABLES Final Re sult [facility] [place] [address] * Pneumonia PCR Tracheal aspirate (12/31/2024 4:34 PM CDT) C. pneumoniae DNA Not Detected Not Detected Legionella pneumophila DNA Not Detected Not Detected [facility] M. pneumoniae DNA Not Detected Not Detected [facility] Adenovirus DNA Not Detected Not Detected [facility] Coronavirus (229E, OC43, HKU1, NL63) RNA Not Detected Not Detected [facility] Metapneumovirus RNA Not Detected Not Detected [facility] Rhinovirus/Enterov irus RNA Not Detected Not Detected [facility] Influenza A RNA Not Detected Not Detected [facility] Influenza B RNA Not Detected Not Detected [facility] Parainfluenza virus (1-4) RNA Not Detected Not Detected [facility] RSV RNA Not Detected Not Detected [facility] Tracheal aspirate 12/31/2024 4:34 PM CDT 12/31/2024 8:15 PM CDT Narrative [facility] - 12/31/2024 9:52 PM CDT The [employer] [...] rule out infection/co-infection with other organisms. The [employer] Pneumonia Panel is FDA cleared for lower respiratory tract specimens. The performance characteristics of this assay have been determined by [facility]. Current interpretive data was last revised on 2024. [facility]upinder Hicksuong CUTTING TABLE OPERATOR FIRST LAB MICROBIOLOGY - GENERAL OR DERABLES Final Result [facility] [place] [address] * (ABNORMAL) Pneumonia PCR with aerobic culture [...] seen on Gram stain: Gram Negative Bacilli [facility] Report Final Report: Greater than or equal to 100,000 colonies/ml of Escherichia coli Greater than or equal to 100,000 colonies/ml of Pseudomonas aeruginosa Plus growth of clinically insignificant bacterial katja. (.) [facility] Organism ESCHERICHIA COLI [facility] Organism PSEUDOMONAS AERUGINOSA [facility] Organism PLUS GROWTH OF CLINICALLY INSIGNIFICANT KATJA. [facility] Tracheal aspirate 12/31/2024 4:34 PM CDT 12/31/2024 6:04 PM CDT Myranda MARIE [facility] - 01/03/2025 2:38 PM CDT When rapid molecular testing results are reported, testing completed using the [employer] Pneumonia Panel. This molecular assay detects: Acinetobacter [...] results and susceptibility testing is recommended. The [employer] Pneumonia Panel is cleared by the [place] Food and Drug Administration and its performance characteristics have been confirmed by the [facility]. The performance of the [employer] Pneumonia Panel has not been established for [...] Pseudomonas aeruginosa Tobramycin INTERPRETATION Susceptible Devyn Palacios CUTTING TABLE OPERATOR FIRST LAB MICROBIOLOGY - GENERAL OR DERABLES Final Result Performing Organization Address City/[facility]/ZIP Co de Phone Number CYNTHIA [facility] [place] [address] * POCT glucose (12/31/2024 4:09 PM CDT) [facility] Glucose, POC 124 70 - 199 mg/dL Blood 12/31/2024 4:09 PM CDT 12/31/2024 4:09 PM CDT Parth Dalton MD LAB POCT ORDERABLES - DEVICE Final Result Performing Organization Address [facility] Co de Phone Number CYNTHIA [facility] [place] [address] * TRANSTHORACIC ECHO (TTE) COMPLETE W DOPPLER/CF W CONTRAST (12/31/2024 3:30 PM CDT) [facility] Estimated EF 55-60 % CONS SCIMAGE EF Mod BP 58 % CONS SCIMAGE Anatomical Region Laterality Modality Ultrasound 12/31/2024 1:39 PM CDT Narrative 12/31/2024 4:40 PM CDT [facility] [place] [address] Transthoracic Echocardiographic Report Patient Name: MEGAN TITUS G : 1950 (74y 11m) Sex: M Study Date: 12/31/2024 01:39:18 PM Ht(Inch): 70 Wt(Lb): 216.05 BSA: 2.2 Scarf And Anneal Operator: USR Location: [id number] Order Provider: DEVYN PALACIOS Heart Rate: 112 [...] Procedure Note Nel Ross MD - 12/31/2024 [facility] [place] [address] Transthoracic Echocardiographic Report Patient Name: MEGAN TITUS G : 1950 (74y 11m) Sex: M Study Date: 12/31/2024 01:39:18 PM Ht(Inch): 70 Wt(Lb): 216.05 BSA: 2.2 Scarf And Anneal Operator: ANKIT Location: [id number] Order Provider: DEVYN PALACIOS Heart Rate: 112 [...] Nel Ross MD 12/31/2024 4:39:49 PM CDT us Thwhitney Palacios NP CV ECHO PROCEDURES Final Resu lt * Oxyhemoglobin, central venous (12/31/2024 1:35 PM CDT) Oxyhemoglobin, CV 65.0 % Comment: Interpretive Data No reference range established. Current interpretive data was last revised 2019. Blood 12/31/2024 1:35 PM CDT 12/31/2024 1:41 PM CDT Magy Kaur CUTTING TABLE OPERATOR FIRST LAB BLOOD ORDERABLES F inal Result Performing Organization Address [facility] Co de Phone Number [facility] [place] [address] * Potassium, whole blood (12/31/2024 1:35 PM CDT) Pathologist [facility] Potassium, bld 4.2 3.3 - 4.9 mmol/L Blood 12/31/2024 1:35 PM CDT 12/31/2024 1:41 PM CDT Jyotsna Salazar CUTTING TABLE OPERATOR FIRST LAB BLOOD ORDERABLES Final Result Performing Organization Address [facility] de Phone Number [facility] [place] [address] * (ABNORMAL) Blood gas, venous (12/31/2024 1:35 PM CDT) pH, Venous 7.41 7.32 - 7.43 PCO2, Venous 36(L) 40 - 50 mmHg [facility] PO2, Venous 37 mmHg [facility] Comment: Interpretive Data No Reference Range Established Current Interpretive Data was last revised on 2017. HCO3 Venous, Calculated 23 20 - 30 mmol/L [facility] BE, venous -2 mmol/L [facility] Comment: Interpretive Data No Reference Range Established Current Interpretive Data was last revised on 2017. Blood 12/31/2024 1:35 PM CDT 12/31/2024 1:41 PM CDT us Devyn Palacios CUTTING TABLE OPERATOR FIRST LAB BLOOD ORDERABLES Final Re sult Performing Organization Address [facility] Co de Phone Number [facility] [place] [address] * Potassium, whole blood (12/31/2024 11:38 AM CDT) Potassium, bld 4.3 3.3 - 4.9 mmol/L Blood 12/31/2024 11:3 8 AM CDT 12/31/2024 11:45 AM CDT us Jyotsna Salazar CUTTING TABLE OPERATOR FIRST LAB BLOOD ORDERABLES Final Result Performing Organization Address [facility] Co de Phone Number [facility] [place] [address] * POCT glucose (12/31/2024 11:36 AM CDT) Glucose, POC 103 70 - 199 mg/dL Blood 12/31/2024 11:3 6 AM CDT 12/31/2024 11:36 AM CDT us Parth Dalton MD LAB POCT ORDERABLES - DEVICE Final Result Performing Organization Address [facility] Co de Phone Number [facility] [place] [address] * XR Abdomen 1 View AP (12/31/2024 [...] it. Electronically signed by: Dee Smith M.D. [facility] Palac[facility] CUTTING TABLE OPERATOR FIRST IMG XR PROCEDURES Final Resul t * [...] it. Electronically signed by: Vasquez Yusuf M.D. us Thoa Thi Palacios CUTTING TABLE OPERATOR FIRST IMG XR PROCEDURES Final Resul t * Oxyhemoglobin, central venous (12/31/2024 9:59 AM CDT) Oxyhemoglobin, CV 46.5 % Comment: Interpretive Data No reference range established. Current interpretive data was last revised 2019. Blood 12/31/2024 9:59 AM CDT 12/31/2024 10:05 AM CDT Devyn Palacios CUTTING TABLE OPERATOR FIRST LAB BLOOD ORDERABLES Final Re sult [facility] [place] [address] * Potassium, whole blood (12/31/2024 9:59 AM CDT) Potassium, bld 4.6 3.3 - 4.9 mmol/L Blood 12/31/2024 9:59 AM CDT 12/31/2024 10:05 AM CDT Magy Lux Annettemagdalena CUTTING TABLE OPERATOR FIRST LAB BLOOD ORDERABLES F inal Result Performing Organization Address City/[facility] Co de Phone Number [facility] [place] [address] * eGFR (12/31/2024 9:59 AM CDT) eGFR [...] 9:59 AM CDT 12/31/2024 10:24 AM CDT Devyn Palacios CUTTING TABLE OPERATOR FIRST LAB BLOOD ORDERABLES Final Re sult Performing Organization Address City/[facility] Co de Phone Number [facility] [place] [employer] [place] [address] * Lactate, whole blood (12/31/2024 9:59 AM CDT) Lactate, bld 1.5 0.7 - 2.0 mmol/L Blood 12/31/2024 9:59 AM CDT 12/31/2024 10:05 AM CDT [facility] Pal[facility] LAB BLOOD ORDERABLES Final Re sult Performing Organization Address [facility] [place] [address] * Protime-INR (12/31/2024 9:59 AM CDT) Pathologist [facility] PT 12.4 10.2 - 13.5 sec INR 1.10 0.90 - 1.20 [facility] Comment: Interpretive data Oral anticoagulant therapeutic ranges: Venous thromboembolism prophylaxis or treatment: 2.0-3.0 CARDIOLOGY Standard range: 2.0-3.0 High-intensity range: 2.5-3.5 Refer to indication-specific guidelines for appropriate target ranges for prosthetic heart valve replacement. Current interpretive data was last revised on 2019. Blood 12/31/2024 9:59 AM CDT 12/31/2024 10:05 AM CDT Devyn Palacios CUTTING TABLE OPERATOR FIRST LAB BLOOD ORDERABLES Final Re sult Performing Organization Address [facility] [place] [address] * (ABNORMAL) CBC without differential (12/31/2024 9:59 AM CDT) WBC 5.78 3.80 - 9.90 K/cumm Hgb 8.7(L) 13.0 - 17.5 g/dL [facility] Hct 26.2(L) 38.9 - 50.3 % [facility] Plt 96(L) 150 - 400 K/cumm [facility] MPV 11.1 9.1 - 12.3 fL [facility] RBC 2.54(L) 4.30 - 5.80 M/cumm [facility] MCV 103.1(H) 81.3 - 96.4 fL [facility] MCH 34.3(H) 27.1 - 33.3 pg [facility] MCHC 33.2 32.3 - 35.7 g/dL [facility] RDW CV 14.6 11.1 - 14.9 % [facility] RDW SD 54.7(H) 35.7 - 48.1 fL [facility] NRBC abs 0.00 0.00 - 0.01 K/cumm [facility] Blood 12/31/2024 9:59 AM CDT 12/31/2024 10:24 AM CDT CTSpace Palacios LAB BLOOD ORDERABLES Final Re sult Performing Organization Address City/[facility]/ZIP Co de Phone Number [facility] [email or web address] [place] [address] * Type and screen (12/31/2024 9:59 AM CDT) ABO Rh A Positive Becca, indirect Negative [facility] Blood 12/31/2024 9:59 AM CDT 12/31/2024 10:57 AM CDT Narrative [facility] - 12/31/2024 11:42 AM CDT Has the patient had Daratumumab or Isatuximab in the past 6 months?->Unknown CTSpace Palacios LAB BLOOD BANK TEST ORDERABLE S Final Result Performing Organization Address City/[facility]/ZIP Co de Phone Number [facility] [place] [employer] [place] [address] * Blood gas, venous (12/31/2024 9:59 AM CDT) pH, Venous 7.36 7.32 - 7.43 PCO2, Venous 40 40 - 50 mmHg [facility] PO2, Venous 37 mmHg [facility] Comment: Interpretive Data No Reference Range Established Current Interpretive Data was last revised on 2017. HCO3 Venous, Calculated 23 20 - 30 mmol/L [facility] BE, venous -2 mmol/L [facility] Comment: Interpretive Data No Reference Range Established Current Interpretive Data was last revised on 2017. Blood 12/31/2024 9:59 AM CDT 12/31/2024 10:05 AM CDT us Devyn Palacios CUTTING TABLE OPERATOR FIRST LAB BLOOD ORDERABLES Final Re sult [facility] [place] [address] * (ABNORMAL) Comprehensive metabolic panel (12/31/2024 9:59 AM CDT) Sodium 137 135 - 145 mmol/L Potassium, pl 4.4 3.3 - 4.9 mmol/L [facility] Chloride 106 97 - 110 mmol/L [facility] CO2 22 22 - 32 mmol/L [facility] Anion gap 9 2 - 15 mmol/L [facility] BUN 23 6 - 25 mg/dL [facility] Creatinine 1.17 0.80 - 1.30 mg/dL [facility] Glucose 95 70 - 199 mg/dL [facility] Comment: Interpretive Data Fasting glucose >/= 126 [...] 2022. Calcium 8.4(L) 8.5 - 10.3 mg/dL [facility] Bilirubin, total 0.7 0.1 - 1.2 mg/dL [facility] Protein, pl 5.7(L) 6.5 - 8.5 g/dL [facility] Albumin 3.3(L) 3.5 - 5.0 g/dL [facility] Alk phos 30(L) 40 - 130 Units/L [facility] ALT 14 7 - 55 Units/L [facility] AST 32 10 - 50 Units/L [facility] Blood 12/31/2024 9:59 AM CDT 12/31/2024 10:24 AM CDT us Devyn Palacios NP LAB BLOOD ORDERABLES Final Re sult [facility] [place] [address] * Critical Care (12/31/2024 9:54 AM CDT) [...] plan with the ICU team and other medical/implementation consultant staff, making frequent assessments and decisions [...] spent time documenting in the medical record Devyn Palacios CUTTING TABLE OPERATOR FIRST IN CLINIC/BEDSIDE ORDERABLES Final Result * POCT glucose (12/31/2024 8:36 AM CDT) Glucose, POC 92 70 - 199 mg/dL Blood 12/31/2024 8:36 AM CDT 12/31/2024 8:36 AM CDT Parth Dalton MD LAB POCT ORDERABLES - DEVICE Final Result Performing Organization Address [facility] Co de Phone Number [facility] [place] [address] * Oxyhemoglobin, central venous (12/31/2024 4:11 AM CDT) Oxyhemoglobin, CV 44.5 % Comment: Interpretive Data No reference range established. Current interpretive data was last revised 2019. Blood 12/31/2024 4:11 AM CDT 12/31/2024 4:31 AM CDT Magy Kaur CUTTING TABLE OPERATOR FIRST LAB BLOOD ORDERABLES F inal Result Performing Organization Address [facility] Co de Phone Number [facility] [place] [address] * Potassium, whole blood (12/31/2024 4:11 AM CDT) Potassium, bld 3.9 3.3 - 4.9 mmol/L Blood 12/31/2024 4:11 AM CDT 12/31/2024 4:31 AM CDT Jyotsna Salazar CUTTING TABLE OPERATOR FIRST LAB BLOOD ORDERABLES Final Result Performing Organization Address City/[facility] Co de Phone Number [facility] [place] [address] * POCT glucose (12/31/2024 4:09 AM CDT) [facility] Glucose, POC 114 70 - 199 mg/dL Blood 12/31/2024 4:09 AM CDT 12/31/2024 4:09 AM CDT Parth Dalton MD LAB POCT ORDERABLES - DEVICE Final Result Performing Organization Address [facility] Co de Phone Number [facility] [place] [address] * POCT glucose (12/30/2024 11:44 PM CDT) [facility] Glucose, POC 118 70 - 199 mg/dL Blood 12/30/2024 11:4 4 PM CDT 12/30/2024 11:44 PM CDT us Parth Dalton MD LAB POCT ORDERABLES - DEVICE Final Result Performing Organization Address [facility] Co de Phone Number [facility] [place] [address] * (ABNORMAL) CBC without differential (12/30/2024 8:10 PM CDT) [facility] WBC 5.98 3.80 - 9.90 K/cumm Hgb 8.7(L) 13.0 - 17.5 g/dL [facility] Hct 25.8(L) 38.9 - 50.3 % [facility] Plt 84(L) 150 - 400 K/cumm [facility] MPV 10.9 9.1 - 12.3 fL [facility] RBC 2.51(L) 4.30 - 5.80 M/cumm [facility] MCV 102.8(H) 81.3 - 96.4 fL [facility] MCH 34.7(H) 27.1 - 33.3 pg [facility] MCHC 33.7 32.3 - 35.7 g/dL [facility] RDW CV 14.6 11.1 - 14.9 % [facility] RDW SD 55.1(H) 35.7 - 48.1 fL [facility] NRBC abs 0.00 0.00 - 0.01 K/cumm [facility] Blood 12/30/2024 8:10 PM CDT 12/30/2024 8:34 PM CDT Rosa Beltran NP LAB BLOOD ORDERABLES Final Re sult [facility] [place] [address] * Type and screen (12/30/2024 8:10 PM CDT) Pathologist [facility] Becca, indirect Negative ABO Rh A Positive [facility] Blood 12/30/2024 8:10 PM CDT 12/30/2024 8:35 PM CDT Narrative [facility] - 12/30/2024 9:29 PM CDT Has the patient had Daratumumab or Isatuximab in the past 6 months?->Unknown Rosa Beltran NP LAB BLOOD BANK TEST ORDERABLE S Final Result [facility] [place] [address] * eGFR (12/30/2024 8:08 PM CDT) Pathologist [facility] eGFR 60 >=60 mL/min/1. 73 m2 Comment: [...] ORDERABLES Final Re sult Performing Organization Address [facility] Co de Phone Number [facility] [place] [address] * Phosphorus (12/30/2024 8:08 PM CDT) Phosphorus, pl 3.4 2.3 - 4.5 mg/dL Blood 12/30/2024 8:08 PM CDT 12/30/2024 8:34 PM CDT Marsha Villarreal NP LAB BLOOD ORDERABLES Final Re sult Performing Organization Address [facility] Co de Phone Number [facility] [place] [address] * Magnesium (12/30/2024 8:08 PM CDT) Magnesium 2.2 1.4 - 2.5 mg/dL Blood 12/30/2024 8:08 PM CDT 12/30/2024 8:34 PM CDT Marsha Villarreal NP LAB BLOOD ORDERABLES Final Re sult [facility] [place] [address] * Basic metabolic panel (12/30/2024 8:08 PM CDT) Sodium 139 135 - 145 mmol/L Potassium, pl 4.1 3.3 - 4.9 mmol/L [facility] Chloride 106 97 - 110 mmol/L [facility] CO2 23 22 - 32 mmol/L [facility] Anion gap 10 2 - 15 mmol/L [facility] BUN 23 6 - 25 mg/dL [facility] Creatinine 1.25 0.80 - 1.30 mg/dL [facility] Glucose 112 70 - 199 mg/dL [facility] Comment: Interpretive Data Fasting glucose >/= 126 [...] 2022. Calcium 8.5 8.5 - 10.3 mg/dL [facility] Blood 12/30/2024 8:08 PM CDT 12/30/2024 8:34 PM CDT Marsha Villarreal CUTTING TABLE OPERATOR FIRST LAB BLOOD ORDERABLES Final Re sult Performing Organization Address [facility]/ZIP Co de Phone Number CY[facility]TH[facility] [place] [address] * POCT glucose (12/30/2024 7:41 PM CDT) Glucose, POC 94 70 - 199 mg/dL Blood 12/30/2024 7:41 PM CDT 12/30/2024 7:41 PM CDT us Parth Dalton MD LAB POCT ORDERABLES - DEVICE Final Result [facility] [place] [facility] [place] [address] * XR Chest 1 View (12/30/2024 6:25 [...] signed by: Toby Horan M.D. Mary Swift CUTTING TABLE OPERATOR FIRST IMG XR PROCEDURES F inal Result * [...] it. Electronically signed by: Dee Smith M.D. Marsha Villarreal NP IMG XR PROCEDURES Final Resul t * (ABNORMAL) Differential, auto (12/30/2024 5:25 PM CDT) Neutrophil abs 6.01 1.50 - 6.50 K/cumm Imm gran abs 0.04 0.00 - 0.10 K/cumm [facility] Lymphocyte abs 0.33(L) 0.80 - 3.30 K/cumm [facility] Monocyte abs 0.50 0.20 - 0.80 K/cumm [facility] Eosinophil abs 0.01 0.00 - 0.50 K/cumm [facility] Basophil abs 0.01 0.00 - 0.10 K/cumm [facility] Neutrophil pct 87.2 % [facility] Comment: Interpretive Data Percent cell count reference ranges are not reported, since discordance with absolute values may lead to misinterpretation of CBC data. Current Interpretive Data was last revised on 2017. Imm gran pct 0.6 % [facility] Comment: Interpretive Data Percent cell count reference ranges are not reported, since discordance with absolute values may lead to misinterpretation of CBC data. Current Interpretive Data was last revised on 2017. Lymphocyte pct 4.8 % [facility] Comment: Interpretive Data Percent cell count reference ranges are not reported, since discordance with absolute values may lead to misinterpretation of CBC data. Current Interpretive Data was last revised on 2017. Monocyte pct 7.2 % [facility] Comment: Interpretive Data Percent cell count reference ranges are not reported, since discordance with absolute values may lead to misinterpretation of CBC data. Current Interpretive Data was last revised on 2017. Eosinophil pct 0.1 % [facility] Comment: Interpretive Data Percent cell count reference ranges are not reported, since discordance with absolute values may lead to misinterpretation of CBC data. Current Interpretive Data was last revised on 2017. Basophil pct 0.1 % [facility] Comment: Interpretive Data Percent cell count reference ranges are not reported, since discordance with absolute values may lead to misinterpretation of CBC data. Current Interpretive Data was last revised on 2017. Blood 12/30/2024 5:25 PM CDT 12/30/2024 5:37 PM CDT Marsha Villarreal CUTTING TABLE OPERATOR FIRST LAB BLOOD ORDERABLES Final Re sult [facility] [place] [employer] [place] [address] * (ABNORMAL) CBC with auto differential (12/30/2024 5:25 PM CDT) Pathologist [facility] WBC 6.90 3.80 - 9.90 K/cumm Hgb 8.6(L) 13.0 - 17.5 g/dL [facility] Hct 25.8(L) 38.9 - 50.3 % [facility] Plt 91(L) 150 - 400 K/cumm [facility] MPV 10.7 9.1 - 12.3 fL [facility] RBC 2.48(L) 4.30 - 5.80 M/cumm [facility] MCV 104.0(H) 81.3 - 96.4 fL [facility] MCH 34.7(H) 27.1 - 33.3 pg [facility] MCHC 33.3 32.3 - 35.7 g/dL [facility] RDW CV 14.6 11.1 - 14.9 % [facility] RDW SD 55.3(H) 35.7 - 48.1 fL [facility] NRBC abs 0.00 0.00 - 0.01 K/cumm [facility] Blood 12/30/2024 5:25 PM CDT 12/30/2024 5:37 PM CDT Marsha Villarreal CUTTING TABLE OPERATOR FIRST LAB BLOOD ORDERABLES Final Re sult [facility] [place] [employer] [place] [address] * (ABNORMAL) eGFR (12/30/2024 5:21 PM CDT) Pathologist [facility] eGFR 59(L) >=60 mL/min/1. 73 m2 Comment: [...] CDT 12/30/2024 5:53 PM CDT Marsha Villarreal CUTTING TABLE OPERATOR FIRST LAB BLOOD ORDERABLES Final Re sult [facility] Department of [employer] [place], [place] [id number] * Magnesium (12/30/2024 5:21 PM CDT) [facility] Magnesium 2.2 1.4 - 2.5 mg/dL Blood 12/30/2024 5:21 PM CDT 12/30/2024 5:53 PM CDT Parth Dalton MD LAB BLOOD ORDERABLES Final Re sult [facility] [employer] [place] [address] * Basic metabolic panel (12/30/2024 5:21 PM CDT) Sodium 141 135 - 145 mmol/L Potassium, pl 4.4 3.3 - 4.9 mmol/L [facility] Chloride 108 97 - 110 mmol/L [facility] CO2 23 22 - 32 mmol/L [facility] Anion gap 10 2 - 15 mmol/L [facility] BUN 23 6 - 25 mg/dL [facility] Creatinine 1.27 0.80 - 1.30 mg/dL [facility] Glucose 118 70 - 199 mg/dL [facility] Comment: Interpretive Data Fasting glucose >/= 126 [...] 2022. Calcium 8.9 8.5 - 10.3 mg/dL [facility] Blood 12/30/2024 5:21 PM CDT 12/30/2024 5:53 PM CDT Marsha Villarreal NP LAB BLOOD ORDERABLES Final Re sult Performing Organization Address [facility] Co de Phone Number [facility] [place] [employer] [place] [address] * Oxyhemoglobin, central venous (12/30/2024 5:20 PM CDT) [facility] Signature Oxyhemoglobin, CV 53.9 % Comment: Interpretive Data No reference range established. Current interpretive data was last revised 2019. Blood 12/30/2024 5:20 PM CDT 12/30/2024 5:33 PM CDT Marsha Villarreal CUTTING TABLE OPERATOR FIRST LAB BLOOD ORDERABLES Final Re sult Performing Organization Address City/[facility] Co de Phone Number [facility] [place] [employer] [place] [address] * Potassium, whole blood (12/30/2024 5:18 PM CDT) Potassium, bld 4.3 3.3 - 4.9 mmol/L Blood 12/30/2024 5:18 PM CDT 12/30/2024 5:33 PM CDT Marsha Villarreal CUTTING TABLE OPERATOR FIRST LAB BLOOD ORDERABLES Final Re sult Performing Organization Address [facility] Co de Phone Number [facility] [place] [address] * POCT glucose (12/30/2024 4:29 PM CDT) Glucose, POC 94 70 - 199 mg/dL Blood 12/30/2024 4:29 PM CDT 12/30/2024 4:29 PM CDT Parth Dalton MD LAB POCT ORDERABLES - DEVICE Final Result Performing Organization Address [facility] de Phone Number [facility] [place] [address] * Oxyhemoglobin, central venous (12/30/2024 12:04 PM CDT) [facility] Oxyhemoglobin, CV 64.8 % Comment: Interpretive Data No reference range established. Current interpretive data was last revised 2019. Blood 12/30/2024 12:0 4 PM CDT 12/30/2024 12:12 PM CDT Magy Kaur CUTTING TABLE OPERATOR FIRST LAB BLOOD ORDERABLES F inal Result Performing Organization Address [facility] Co de Phone Number [facility] [place] [address] * Potassium, whole blood (12/30/2024 12:04 PM CDT) Potassium, bld 4.1 3.3 - 4.9 mmol/L Blood 12/30/2024 12:0 4 PM CDT 12/30/2024 12:12 PM CDT Parth Dalton MD LAB BLOOD ORDERABLES Final Re sult Performing Organization Address City/[facility]/ZIP Co de Phone Number [facility] [place] [employer] [place] [address] * POCT glucose (12/30/2024 12:03 PM CDT) Glucose, POC 130 70 - 199 mg/dL Blood 12/30/2024 12:0 3 PM CDT 12/30/2024 12:03 PM CDT Parth Dalton MD LAB POCT ORDERABLES - DEVICE Final Result Performing Organization Address [facility] Co de Phone Number [facility] [place] [employer] [place] [address] * Potassium, whole blood (12/30/2024 7:45 AM CDT) Potassium, bld 3.8 3.3 - 4.9 mmol/L Blood 12/30/2024 7:45 AM CDT 12/30/2024 7:52 AM CDT us Jyotsna Salazar NP LAB BLOOD ORDERABLES Final Result [facility] [employer] [place] [address] * POCT glucose (12/30/2024 7:45 AM CDT) Glucose, POC 132 70 - 199 mg/dL Blood 12/30/2024 7:45 AM CDT 12/30/2024 7:45 AM CDT us Parth Dalton MD LAB POCT ORDERABLES - DEVICE Final Result Performing Organization Address [facility] de Phone Number [facility] [place] [address] * (ABNORMAL) Blood gas, arterial (12/30/2024 7:45 AM CDT) pH, Art 7.43 7.35 - 7.45 PCO2, Arterial 31(L) 35 - 45 mmHg [facility] PO2, Arterial 153(H) 83 - 108 mmHg [facility] HCO3 Art (Calculated) 21 20 - 30 mmol/L [facility] BE, art -3 mmol/L [facility] Comment: Interpretive Data No Reference Range Established Current Interpretive Data was last revised on 2017 O2 Sat Art (Measured) 100(H) 90 - 95 % [facility] Blood 12/30/2024 7:45 AM CDT 12/30/2024 7:52 AM CDT Magy Kaur NP LAB BLOOD ORDERABLES F inal Result Performing Organization Address [facility] de Phone Number [facility] [place] [address] * Critical Care (12/30/2024 6:54 AM CDT) [...] plan with the ICU team and other medical/implementation consultant staff, making frequent assessments and decisions [...] - DEVICE Final Result Performing Organization Address [facility] Co de Phone Number [facility] [place] [employer] [place] [address] * Oxyhemoglobin, central venous (12/30/2024 1:10 AM CDT) Oxyhemoglobin, CV 73.6 % Comment: Interpretive Data No reference range established. Current interpretive data was last revised 2019. Blood 12/30/2024 1:10 AM CDT 12/30/2024 1:23 AM CDT us Magy Kaur CUTTING TABLE OPERATOR FIRST LAB BLOOD ORDERABLES F inal Result Performing Organization Address City/[facility]/ZIP Co de Phone Number [facility] [place] [employer] [place] [address] * POCT glucose (12/30/2024 12:16 AM CDT) Glucose, POC 134 70 - 199 mg/dL Blood 12/30/2024 12:1 6 AM CDT 12/30/2024 12:16 AM CDT Parth Dalton MD LAB POCT ORDERABLES - DEVICE Final Result Performing Organization Address City/[facility] Co de Phone Number [facility] [place] [address] * Potassium, whole blood (12/30/2024 12:12 AM CDT) Potassium, bld 4.2 3.3 - 4.9 mmol/L Blood 12/30/2024 12:1 2 AM CDT 12/30/2024 12:35 AM CDT Magy Kaur NP LAB BLOOD ORDERABLES F inal Result Performing Organization Address [facility] de Phone Number [facility] [place] [address] * eGFR (12/30/2024 12:12 AM CDT) eGFR [...] CDT 12/30/2024 12:40 AM CDT Magy Kaur CUTTING TABLE OPERATOR FIRST LAB BLOOD ORDERABLES F inal Result Performing Organization Address [facility] de Phone Number [facility] [place] [address] * (ABNORMAL) CBC without differential (12/30/2024 12:12 AM CDT) WBC 5.93 3.80 - 9.90 K/cumm Hgb 9.1(L) 13.0 - 17.5 g/dL [facility] Hct 26.7(L) 38.9 - 50.3 % [facility] Plt 87(L) 150 - 400 K/cumm [facility] MPV 10.7 9.1 - 12.3 fL [facility] RBC 2.60(L) 4.30 - 5.80 M/cumm [facility] MCV 102.7(H) 81.3 - 96.4 fL [facility] MCH 35.0(H) 27.1 - 33.3 pg [facility] MCHC 34.1 32.3 - 35.7 g/dL [facility] RDW CV 14.7 11.1 - 14.9 % [facility] RDW SD 55.4(H) 35.7 - 48.1 fL [facility] NRBC abs 0.00 0.00 - 0.01 K/cumm [facility] Blood 12/30/2024 12:1 2 AM CDT 12/30/2024 12:41 AM CDT Magy Kaur CUTTING TABLE OPERATOR FIRST LAB BLOOD ORDERABLES F inal Result Performing Organization Address [facility]/ZIP Co de Phone Number [facility] [place] [address] * Phosphorus (12/30/2024 12:12 AM CDT) Pathologist [facility] Phosphorus, pl 3.8 2.3 - 4.5 mg/dL Blood 12/30/2024 12:1 2 AM CDT 12/30/2024 12:40 AM CDT Magy Kaur CUTTING TABLE OPERATOR FIRST LAB BLOOD ORDERABLES F inal Result Performing Organization Address [facility] de Phone Number [facility] [place] [address] * Magnesium (12/30/2024 12:12 AM CDT) [facility] Magnesium 2.5 1.4 - 2.5 mg/dL Blood 12/30/2024 12:1 2 AM CDT 12/30/2024 12:40 AM CDT Magy Kaur NP LAB BLOOD ORDERABLES F inal Result Performing Organization Address [facility] de Phone Number [facility] [place] [address] * (ABNORMAL) Blood gas, arterial (12/30/2024 12:12 AM CDT) [facility] pH, Art 7.39 7.35 - 7.45 PCO2, Arterial 36 35 - 45 mmHg [facility] PO2, Arterial 81(L) 83 - 108 mmHg [facility] HCO3 Art (Calculated) 22 20 - 30 mmol/L [facility] BE, art -3 mmol/L [facility] Comment: Interpretive Data No Reference Range Established Current Interpretive Data was last revised on 2017 O2 Sat Art (Measured) 96(H) 90 - 95 % [facility] Blood 12/30/2024 12:1 2 AM CDT 12/30/2024 12:35 AM CDT Magy Kaur CUTTING TABLE OPERATOR FIRST LAB BLOOD ORDERABLES F inal Result Performing Organization Address [facility]/State/ZIP Co de Phone Number [facility] [place] [address] * Basic metabolic panel (12/30/2024 12:12 AM CDT) Sodium 140 135 - 145 mmol/L Potassium, pl 4.3 3.3 - 4.9 mmol/L [facility] Chloride 108 97 - 110 mmol/L [facility] CO2 22 22 - 32 mmol/L [facility] Anion gap 10 2 - 15 mmol/L [facility] BUN 19 6 - 25 mg/dL [facility] Creatinine 1.11 0.80 - 1.30 mg/dL [facility] Glucose 126 70 - 199 mg/dL [facility] Comment: Interpretive Data Fasting glucose >/= 126 [...] 2022. Calcium 9.4 8.5 - 10.3 mg/dL [facility] Blood 12/30/2024 12:1 2 AM CDT 12/30/2024 12:40 AM CDT Magy Kaur CUTTING TABLE OPERATOR FIRST LAB BLOOD ORDERABLES F inal Result [facility] [place] [address] * Oxyhemoglobin, central venous (12/29/2024 9:22 PM CDT) Oxyhemoglobin, CV 59.4 % Comment: Interpretive Data No reference range established. Current interpretive data was last revised 2019. Blood 12/29/2024 9:22 PM CDT 12/29/2024 9:44 PM CDT us Magy Elise Annettemagdalena CUTTING TABLE OPERATOR FIRST LAB BLOOD ORDERABLES F inal Result [facility] [place] [address] * XR Chest 1 View (12/29/2024 8:27 PM CDT) Anatomical Region Laterality Modality Body, Chest N/A Computed Radiogr aphy 12/30/2024 6:48 AM CDT Impressions 12/30/2024 6:48 AM CDT Sternal fixation plates, left atrial appendage clip, and tracheostomy tube again seen. Removal of [place] catheter. Right internal jugular catheter tip in [...] and tracheostomy tube again seen. Removal of [place] catheter. Right internal jugular catheter tip in [...] signed by: Yaya Ahumada M.D. Mary Swift CUTTING TABLE OPERATOR FIRST IMG XR PROCEDURES F inal Result * POCT glucose (12/29/2024 7:43 PM CDT) Glucose, POC 131 70 - 199 mg/dL Blood 12/29/2024 7:43 PM CDT 12/29/2024 7:43 PM CDT us Parth Dalton MD LAB POCT ORDERABLES - DEVICE Final Result [facility] [place] [address] * (ABNORMAL) POC Blood Gas and Chemistries, Arterial - (12/29/2024 6:27 PM CDT) Pathologist [facility] pH, Art POC 7.34(L) 7.35 - 7.45 pCO2, Art POC 39 35 - 45 mmHg [facility] pO2, Art POC 91 83 - 108 mmHg [facility] Na, POC 140 135 - 145 mmol/L [facility] K POC 4.1 3.3 - 4.9 mmol/L [facility] Comment: Interpretive Data Not all point of care methods assess for hemolysis. Confirm with instrument and retest K+ if not consistent with clinical signs and symptoms. Current Interpretive Data was last revised on 2023. Cl, POC 113(H) 97 - 110 mmol/L [facility] Ionized Ca, POC 4.64 4.50 - 5.10 mg/dL [facility] Glucose, POC 126 70 - 199 mg/dL [facility] Lactate POC 1.1 0.7 - 2.0 mmol/L [facility] SO2 (felipe) arterial 99(H) 90 - 95 % [facility] Base excess, POC -4.4 mmol/L [facility] HCO3, Art POC 21 20 - 30 mmol/L [facility] Hct, POC 28.0(L) 41.4 - 51.6 % [facility] Total Hb, POC 9.3(L) 13.8 - 17.2 g/dL [facility] Blood 12/29/2024 6:27 PM CDT 12/29/2024 6:27 PM CDT Result [facility] Parth Dalton MD LAB POCT ORDERABLES - DEVICE Final Result Performing Organization Address [facility] Co de Phone Number [facility] [place] [address] * POCT glucose (12/29/2024 4:05 PM CDT) Glucose, POC 131 70 - 199 mg/dL Blood 12/29/2024 4:05 PM CDT 12/29/2024 4:05 PM CDT Result [facility] Parth Dalton MD LAB POCT ORDERABLES - DEVICE Final Result Performing Organization Address [facility] Co de Phone Number [facility] [place] [employer] [place] [address] * Oxyhemoglobin, central venous (12/29/2024 4:00 PM CDT) Oxyhemoglobin, CV 68.2 % Comment: Interpretive Data No reference range established. Current interpretive data was last revised 2019. Blood 12/29/2024 4:00 PM CDT 12/29/2024 4:15 PM CDT Magy Kaur CUTTING TABLE OPERATOR FIRST LAB BLOOD ORDERABLES F inal Result Performing Organization Address [facility] Co de Phone Number [facility] [employer] [place] [address] * Potassium, whole blood (12/29/2024 4:00 PM CDT) Potassium, bld 4.3 3.3 - 4.9 mmol/L Blood 12/29/2024 4:00 PM CDT 12/29/2024 4:16 PM CDT Parth Dalton MD LAB BLOOD ORDERABLES Final Re sult Performing Organization Address [facility] Co de Phone Number CYNTHIA MURPHY Fernanda [facility] [place] [address] * eGFR (12/29/2024 4:00 PM CDT) eGFR [...] 4:00 PM CDT 12/29/2024 4:22 PM CDT Parth Dalton MD LAB BLOOD ORDERABLES Final Re sult Performing Organization Address [facility]/ZIP Co de Phone Number CYNTHIA MURPHY Fernanda [facility] [place] [address] * Triglycerides (12/29/2024 4:00 PM CDT) Triglycerides [...] PM CDT 12/29/2024 4:16 PM CDT Narrative [facility] - 12/29/2024 4:52 PM CDT While on propofol infusion. Magy Kaur CUTTING TABLE OPERATOR FIRST LAB BLOOD ORDERABLES F inal Result Performing Organization Address City/[facility]/ZIP Co de Phone Number [facility] Department [place] [address] * (ABNORMAL) Magnesium (12/29/2024 4:00 PM CDT) Magnesium 2.9(H) 1.4 - 2.5 mg/dL Blood 12/29/2024 4:00 PM CDT 12/29/2024 4:22 PM CDT Seema Palma DNP LAB BLOOD ORDERABLES Fi nal Result Performing Organization Address City/[facility]/ZIP Co de Phone Number [facility] [place] [address] * (ABNORMAL) Basic metabolic panel (12/29/2024 4:00 PM CDT) Sodium 144 135 - 145 mmol/L Potassium, pl 4.6 3.3 - 4.9 mmol/L [facility] Chloride 111(H) 97 - 110 mmol/L [facility] CO2 24 22 - 32 mmol/L [facility] Anion gap 9 2 - 15 mmol/L [facility] BUN 21 6 - 25 mg/dL [facility] Creatinine 1.24 0.80 - 1.30 mg/dL [facility] Glucose 121 70 - 199 mg/dL [facility] Comment: Interpretive Data Fasting glucose >/= 126 [...] 2022. Calcium 8.5 8.5 - 10.3 mg/dL [facility] Blood 12/29/2024 4:00 PM CDT 12/29/2024 4:16 PM CDT Parth Dalton MD LAB BLOOD ORDERABLES Final Re sult [facility] Department [place] [employer] [place] [address] * POCT glucose (12/29/2024 11:57 AM CDT) Glucose, POC 111 70 - 199 mg/dL Blood 12/29/2024 11:5 7 AM CDT 12/29/2024 11:57 AM CDT Parth Dalton MD LAB POCT ORDERABLES - DEVICE Final Result Performing Organization Address City/[facility]/ZIP Co de Phone Number [facility] [place] [address] * ECG 12 lead (12/29/2024 10:15 AM CDT) Ventricular Rate EKG/Min 95 BPM [facility] Atrial Rate 95 BPM [facility] KS-Interval (MSEC) 170 ms [facility] QRS-Interval (MSEC) 80 ms [facility] QT-Interval (MSEC) 368 ms [facility] QTc 462 ms [facility] P Gustine 38 degrees [facility] R Gustine -31 degrees [facility] T Gustine -6 degrees [facility] Diagnosis Sinus rhythm with occasional ventricular-pac ed complexes and with occasional Premature ventricular complexes and Premature atrial complexes Left axis deviation Inferior infarct , age undetermined ST & T wave abnormality, consider anterior ischemia Abnormal ECG When compared with ECG of 26-DEC-2024 13:43, Electronic ventricular pacemaker has replaced Atrial fibrillation Confirmed by JENAE GRACE M.D ([id number]) on 01/01/2025 6:10:53 PM [facility] 12/29/2024 10:1 5 AM CDT 01/01/2025 6:10 PM CDT Magy Kaur CUTTING TABLE OPERATOR FIRST ECG ORDERABLES Final Result [facility] * Critical Care (12/29/2024 8:27 AM CDT) [...] plan with the ICU team and other medical/implementation consultant staff, making frequent assessments and decisions [...] spent time documenting in the medical record Seema Palma DNP IN CLINIC/BEDSIDE ORDER OVIDIO Final Result * Oxyhemoglobin, pulmonary artery (12/29/2024 7:51 AM CDT) Oxyhemoglobin, PA 62.0 % Comment: Interpretive Data No reference range established. Current interpretive data was last revised 2019. Blood 12/29/2024 7:51 AM CDT 12/29/2024 8:00 AM CDT Magy Kaur CUTTING TABLE OPERATOR FIRST LAB BLOOD ORDERABLES F inal Result Performing Organization Address City/[facility]/ZIP Co de Phone Number [facility] Department [place] [address] * Potassium, whole blood (12/29/2024 7:51 AM CDT) Potassium, bld 4.8 3.3 - 4.9 mmol/L Comment:Hemolyzed; results m ay be falsely elevated. Blood 12/29/2024 7:51 AM CDT 12/29/2024 8:00 AM CDT Jyotsna Salazar CUTTING TABLE OPERATOR FIRST LAB BLOOD ORDERABLES Final Result [facility] Department [place] [employer] [place] [address] * Lactate, whole blood (12/29/2024 7:51 AM CDT) Lactate, bld 1.0 0.7 - 2.0 mmol/L Blood 12/29/2024 7:51 AM CDT 12/29/2024 8:00 AM CDT us Seema Palma DNP LAB BLOOD ORDERABLES Fi nal Result [facility] [place] [address] * (ABNORMAL) Blood gas, arterial (12/29/2024 7:51 AM CDT) Pathologist [facility] pH, Art 7.34(L) 7.35 - 7.45 PCO2, Arterial 40 35 - 45 mmHg [facility] PO2, Arterial 150(H) 83 - 108 mmHg [facility] HCO3 Art (Calculated) 22 20 - 30 mmol/L [facility] BE, art -4 mmol/L [facility] Comment: Interpretive Data No Reference Range Established Current Interpretive Data was last revised on 2017 O2 Sat Art (Measured) 99(H) 90 - 95 % [facility] Blood 12/29/2024 7:51 AM CDT 12/29/2024 8:00 AM CDT us Magy Kaur CUTTING TABLE OPERATOR FIRST LAB BLOOD ORDERABLES F inal Result Performing Organization Address City/[facility]/ZIP Co de Phone Number [facility] Department [place] [address] * POCT glucose (12/29/2024 7:50 AM CDT) [facility] Glucose, POC 119 70 - 199 mg/dL Blood 12/29/2024 7:50 AM CDT 12/29/2024 7:50 AM CDT us Parth Dalton MD LAB POCT ORDERABLES - DEVICE Final Result Performing Organization Address City/[facility]/ZIP Co de Phone Number [facility] [place] [address] * Oxyhemoglobin, pulmonary artery (12/29/2024 5:49 AM CDT) Pathologist [facility] Oxyhemoglobin, PA 55.8 % Comment: Interpretive Data No reference range established. Current interpretive data was last revised 2019. Blood 12/29/2024 5:49 AM CDT 12/29/2024 6:01 AM CDT Magy Kaur CUTTING TABLE OPERATOR FIRST LAB BLOOD ORDERABLES F inal Result Performing Organization Address [facility] de Phone Number [facility] [place] [address] * Transfuse RBC (12/29/2024 4:50 AM CDT) Blood Mary Swift CUTTING TABLE OPERATOR FIRST BLOOD TRANSFUSION O RDERABLES Final Result Performing Organization Address [facility] de Phone Number [facility] [place] [employer] [place] [address] * POCT glucose (12/29/2024 3:44 AM CDT) [facility] Glucose, POC 139 70 - 199 mg/dL Blood 12/29/2024 3:44 AM CDT 12/29/2024 3:44 AM CDT Parth Dalton MD LAB POCT ORDERABLES - DEVICE Final Result Performing Organization Address [facility] de Phone Number [facility] [place] [employer] [place] [address] * Prepare RBC: 1 Units (12/29/2024 2:27 AM CDT) Pathologist [facility] Product code [id number] Unit Number [id number] [facility] Product Blood Type APOS [facility] Dispense Status PRESUMED TRANSFUSED [facility] Blood 12/29/2024 2:27 AM CDT 12/29/2024 2:26 AM CDT Narrative [facility] - 12/29/2024 4:01 PM CDT Are special requirements needed? (All products are leukoreduced and CMV- safe)- >No Date required:-[id number] [facility] # of [id number] Reasons:-Cardiovascular disease, Hgb <8 g/dL} Mary Swift CUTTING TABLE OPERATOR FIRST BLOOD BANK PRODUCT ORDERABLES Final Result Performing Organization Address City/[facility]/ZIP Co de Phone Number [facility] [place] [address] * Potassium, whole blood (12/29/2024 12:18 AM CDT) Potassium, bld 4.6 3.3 - 4.9 mmol/L Blood 12/29/2024 12:1 8 AM CDT 12/29/2024 12:26 AM CDT Magy Kaur CUTTING TABLE OPERATOR FIRST LAB BLOOD ORDERABLES F inal Result Performing Organization Address [facility] Co de Phone Number [facility] [place] [address] * eGFR (12/29/2024 12:18 AM CDT) eGFR [...] CDT 12/29/2024 12:34 AM CDT Magy Kaur CUTTING TABLE OPERATOR FIRST LAB BLOOD ORDERABLES F inal Result Performing Organization Address [facility] Co de Phone Number [facility] [place] [employer] [place] [address] * (ABNORMAL) CBC without differential (12/29/2024 12:18 AM CDT) [facility] WBC 4.90 3.80 - 9.90 K/cumm Hgb 7.7(L) 13.0 - 17.5 g/dL [facility] Hct 23.2(L) 38.9 - 50.3 % [facility] Plt 94(L) 150 - 400 K/cumm [facility] MPV 10.1 9.1 - 12.3 fL [facility] RBC 2.24(L) 4.30 - 5.80 M/cumm [facility] MCV 103.6(H) 81.3 - 96.4 fL [facility] MCH 34.4(H) 27.1 - 33.3 pg [facility] MCHC 33.2 32.3 - 35.7 g/dL [facility] RDW CV 14.1 11.1 - 14.9 % [facility] RDW SD 53.0(H) 35.7 - 48.1 fL [facility] NRBC abs 0.00 0.00 - 0.01 K/cumm [facility] Blood 12/29/2024 12:1 8 AM CDT 12/29/2024 12:33 AM CDT Magy Kaur NP LAB BLOOD ORDERABLES F inal Result Performing Organization Address [facility]/ZIP Co de Phone Number [facility] [place] [address] * Type and screen (12/29/2024 12:18 AM CDT) Becca, indirect Negative ABO Rh A Positive [facility] Blood 12/29/2024 12:1 8 AM CDT 12/29/2024 12:41 AM CDT Narrative [facility] - 12/29/2024 1:41 AM CDT Has the patient had Daratumumab or Isatuximab in the past 6 months?->Unknown Magy Kaur NP LAB BLOOD BANK TEST OR DERABLES Final Result Performing Organization Address City/[facility] Co de Phone Number [facility] [place] [address] * Phosphorus (12/29/2024 12:18 AM CDT) Pathologist [facility] Phosphorus, pl 2.5 2.3 - 4.5 mg/dL Blood 12/29/2024 12:1 8 AM CDT 12/29/2024 12:34 AM CDT Magy Kaur NP LAB BLOOD ORDERABLES F inal Result Performing Organization Address [facility] de Phone Number [facility] Department [place] [address] * Magnesium (12/29/2024 12:18 AM CDT) [facility] Magnesium 2.5 1.4 - 2.5 mg/dL Blood 12/29/2024 12:1 8 AM CDT 12/29/2024 12:34 AM CDT Magy Kaur CUTTING TABLE OPERATOR FIRST LAB BLOOD ORDERABLES F inal Result Performing Organization Address City/[facility] Co de Phone Number [facility] [place] [address] * (ABNORMAL) Blood gas, arterial (12/29/2024 12:18 AM CDT) pH, Art 7.40 7.35 - 7.45 PCO2, Arterial 35 35 - 45 mmHg [facility] PO2, Arterial 135(H) 83 - 108 mmHg [facility] HCO3 Art (Calculated) 23 20 - 30 mmol/L [facility] BE, art -2 mmol/L [facility] Comment: Interpretive Data No Reference Range Established Current Interpretive Data was last revised on 2017 O2 Sat Art (Measured) 99(H) 90 - 95 % [facility] Blood 12/29/2024 12:1 8 AM CDT 12/29/2024 12:26 AM CDT Magy Kaur CUTTING TABLE OPERATOR FIRST LAB BLOOD ORDERABLES F inal Result [facility] [place] [address] * (ABNORMAL) Basic metabolic panel (12/29/2024 12:18 AM CDT) Sodium 142 135 - 145 mmol/L Potassium, pl 4.9 3.3 - 4.9 mmol/L [facility] Chloride 110 97 - 110 mmol/L [facility] CO2 23 22 - 32 mmol/L [facility] Anion gap 9 2 - 15 mmol/L [facility] BUN 19 6 - 25 mg/dL [facility] Creatinine 1.23 0.80 - 1.30 mg/dL [facility] Glucose 128 70 - 199 mg/dL [facility] Comment: Interpretive Data Fasting glucose >/= 126 [...] 2022. Calcium 8.4(L) 8.5 - 10.3 mg/dL [facility] Blood 12/29/2024 12:1 8 AM CDT 12/29/2024 12:34 AM CDT Magy Kaur CUTTING TABLE OPERATOR FIRST LAB BLOOD ORDERABLES F inal Result Performing Organization Address [facility]/ZIP Co de Phone Number [facility] [place] [address] * POCT glucose (12/29/2024 12:17 AM CDT) [facility] Signature Glucose, POC 154 70 - 199 mg/dL Blood 12/29/2024 12:1 7 AM CDT 12/29/2024 12:17 AM CDT Parth Dalton MD LAB POCT ORDERABLES - DEVICE Final Result Performing Organization Address [facility] de Phone Number [facility] [place] [address] * XR Chest 1 View (12/28/2024 9:38 PM CDT) Anatomical Region Laterality Modality Body, Chest N/A Computed Radiogr aphy 12/29/2024 7:14 AM CDT Impressions 12/29/2024 7:14 AM CDT The current study is compared with the prior radiograph dated 12/28/2024. Tracheostomy is in place. Sternal plates are present. A [place]-Salma catheter is in place, tip overlies the [...] in place. Sternal plates are present. A [place]-Salma catheter is in place, tip overlies the [...] signed by: Meghan Rios M.D. Mary Swift CUTTING TABLE OPERATOR FIRST IMG XR PROCEDURES F inal Result * Infection Prevention Blanche auris PCR, surveillance Axilla/Groin (12/28/2024 8:22 PM CDT) Blanche auris DNA Not Detected Not Detected [facility] Comment: Interpretive Data Testing performed by [facility]ious Disease [facility] using the Daquan flaquita 6800 Blanche auris assay. This assay detects DNA from Blanche auris using Real-Time PCR. This assay is laboratory developed and is not cleared by the [place] Food and Drug Administration. The performance characteristics have been verified by the [facility] Disease [facility]. Axilla/Groin 12/28/2024 8:22 PM CDT 12/28/2024 9:23 PM CDT Narrative CYNTHIA [facility] - 12/29/2024 12:36 PM CDT Order placed by [facility] due to ring surveillance. us Instant Order Generic Provider LAB MICROBIOLOGY - GENERAL ORDERABLES Final Result [facility] [place] [address] [facility] * (ABNORMAL) Blood gas, arterial (12/28/2024 8:22 PM CDT) Pathologist [facility] pH, Art 7.40 7.35 - 7.45 PCO2, Arterial 34(L) 35 - 45 mmHg [facility] PO2, Arterial 160(H) 83 - 108 mmHg [facility] HCO3 Art (Calculated) 22 20 - 30 mmol/L [facility] BE, art -3 mmol/L [facility] Comment: Interpretive Data No Reference Range Established Current Interpretive Data was last revised on 2017 O2 Sat Art (Measured) 100(H) 90 - 95 % [facility] Blood 12/28/2024 8:22 PM CDT 12/28/2024 8:27 PM CDT Magy Kaur NP LAB BLOOD ORDERABLES F inal Result Performing Organization Address [facility] Co de Phone Number [facility] Department [place] [address] * POCT glucose (12/28/2024 7:43 PM CDT) [facility] Glucose, POC 134 70 - 199 mg/dL Blood 12/28/2024 7:43 PM CDT 12/28/2024 7:43 PM CDT Parth Dalton MD LAB POCT ORDERABLES - DEVICE Final Result Performing Organization Address [facility] Co de Phone Number [facility] [place] [address] * (ABNORMAL) Magnesium (12/28/2024 6:37 PM CDT) [facility] Magnesium 2.9(H) 1.4 - 2.5 mg/dL Blood 12/28/2024 6:37 PM CDT 12/28/2024 6:58 PM CDT Magy Kaur NP LAB BLOOD ORDERABLES F inal Result CYNTHIA [facility] [place] [address] * Critical Care (12/28/2024 6:27 PM CDT) [...] plan with the ICU team and other medical/implementation consultant staff, making frequent assessments and decisions [...] documenting in the medical record Mary Swift CUTTING TABLE OPERATOR FIRST IN CLINIC/BEDSIDE O RDERABLES Final Result * (ABNORMAL) POC Blood Gas and Chemistries, Arterial - (12/28/2024 5:25 PM CDT) [facility] pH, Art POC 7.31(L) 7.35 - 7.45 pCO2, Art POC 40 35 - 45 mmHg [facility] pO2, Art POC 88 83 - 108 mmHg [facility] Na, POC 141 135 - 145 mmol/L [facility] K POC 3.9 3.3 - 4.9 mmol/L [facility] Comment: Interpretive Data Not all point of care methods assess for hemolysis. Confirm with instrument and retest K+ if not consistent with clinical signs and symptoms. Current Interpretive Data was last revised on 2023. Cl, POC 114(H) 97 - 110 mmol/L [facility] Ionized Ca, POC 4.59 4.50 - 5.10 mg/dL [facility] Glucose, POC 122 70 - 199 mg/dL [facility] Lactate POC 1.4 0.7 - 2.0 mmol/L [facility] SO2 (felipe) arterial 98(H) 90 - 95 % [facility] Base excess, POC -5.7 mmol/L [facility] HCO3, Art POC 20 20 - 30 mmol/L [facility] Hct, POC 28.0(L) 41.4 - 51.6 % [facility] Total Hb, POC 9.3(L) 13.8 - 17.2 g/dL [facility] Blood 12/28/2024 5:25 PM CDT 12/28/2024 5:25 PM CDT us Parth Dalton MD LAB POCT ORDERABLES - DEVICE Final Result [facility] [place] [address] * (ABNORMAL) POC Blood Gas and Chemistries, Arterial - (12/28/2024 4:24 PM CDT) pH, Art POC 7.26(L) 7.35 - 7.45 pCO2, Art POC 45 35 - 45 mmHg [facility] pO2, Art POC 74(L) 83 - 108 mmHg [facility] Na, POC 141 135 - 145 mmol/L [facility] K POC 4.3 3.3 - 4.9 mmol/L [facility] Comment: Interpretive Data Not all point of care methods assess for hemolysis. Confirm with instrument and retest K+ if not consistent with clinical signs and symptoms. Current Interpretive Data was last revised on 2023. Cl, POC 114(H) 97 - 110 mmol/L [facility] Ionized Ca, POC 4.70 4.50 - 5.10 mg/dL [facility] Glucose, POC 123 70 - 199 mg/dL [facility] Lactate POC 1.9 0.7 - 2.0 mmol/L [facility] SO2 (felipe) arterial 96(H) 90 - 95 % [facility] Base excess, POC -6.6 mmol/L [facility] HCO3, Art POC 20 20 - 30 mmol/L [facility] Hct, POC 30.0(L) 41.4 - 51.6 % [facility] Total Hb, POC 10.0(L) 13.8 - 17.2 g/dL [facility] Blood 12/28/2024 4:24 PM CDT 12/28/2024 4:24 PM CDT us Parth Dalton MD LAB POCT ORDERABLES - DEVICE Final Result [facility] [place] [address] * XR Abdomen 1 View AP (12/28/2024 [...] it. Electronically signed by: Bob Falcon M.D. us Magy Lux Annettemagdalena CUTTING TABLE OPERATOR FIRST IMG XR PROCEDURES Raquel l Result * [...] pericardial drainage tubes project across the body. [place]-Salma catheter projects over the heart. Thoracostomy tube. [...] pericardial drainage tubes project across the body. [place]-Salma catheter projects over the heart. Thoracostomy tube. Sternal plate. Dictated by: Silvio Palafox M.D. The radiology attending physician has personally reviewed this study, and had reviewed and/or edited this written report and agrees with it. Electronically signed by: James Graham M.D. Magy Kaur CUTTING TABLE OPERATOR FIRST IMG XR PROCEDURES Raquel l Result * XR Chest 1 View (12/28/2024 3:50 PM CDT) Anatomical Region Laterality Modality Body, Chest N/A Digital Radiogra phy 12/28/2024 4:20 PM CDT Impressions 12/28/2024 4:20 PM CDT Comparison 12/27/2024 2:58 PM. Tracheostomy tube remains in place. New sternal plates seen. Left atrial appendage clip in place. [place] catheter placed with tip projecting over the [...] seen. Left atrial appendage clip in place. [place] catheter placed with tip projecting over the [...] seen. Electronically signed by: Jan Myers M.D. us Parth Dalton MD IMG XR PROCEDURES Final Resul t * (ABNORMAL) POC Blood Gas and Chemistries, Arterial - (12/28/2024 3:42 PM CDT) pH, Art POC 7.26(L) 7.35 - 7.45 pCO2, Art POC 46(H) 35 - [address] [facility] pO2, Art POC 63(L) 83 - 108 mmHg [facility] Na, POC 143 135 - 145 mmol/L [facility] K POC 4.0 3.3 - 4.9 mmol/L [facility] Comment: Interpretive Data Not all point of care methods assess for hemolysis. Confirm with instrument and retest K+ if not consistent with clinical signs and symptoms. Current Interpretive Data was last revised on 2023. Cl, POC 115(H) 97 - 110 mmol/L [facility] Ionized Ca, POC 4.56 4.50 - 5.10 mg/dL [facility] Glucose, POC 116 70 - 199 mg/dL [facility] Lactate POC 1.9 0.7 - 2.0 mmol/L [facility] SO2 (felipe) arterial 91 90 - 95 % [facility] Base excess, POC -6.3 mmol/L [facility] HCO3, Art POC 21 20 - 30 mmol/L [facility] Hct, POC 30.0(L) 41.4 - 51.6 % [facility] Total Hb, POC 9.9(L) 13.8 - 17.2 g/dL [facility] Blood 12/28/2024 3:42 PM CDT 12/28/2024 3:42 PM CDT us Parth Dalton MD LAB POCT ORDERABLES - DEVICE Final Result Performing Organization Address [facility] de Phone Number [facility] [place] [address] * Oxyhemoglobin, pulmonary artery (12/28/2024 2:59 PM CDT) Oxyhemoglobin, PA 48.6 % Comment: Interpretive Data No reference range established. Current interpretive data was last revised 2019. Blood 12/28/2024 2:59 PM CDT 12/28/2024 3:04 PM CDT us Magy Kaur NP LAB BLOOD ORDERABLES F inal Result Performing Organization Address [facility] Co de Phone Number [facility] [place] [address] * Calcium, ionized, whole blood (12/28/2024 2:59 PM CDT) Ca, ionized, bld 4.65 4.50 - 5.10 mg/dL Blood 12/28/2024 2:59 PM CDT 12/28/2024 3:04 PM CDT us Parth Dalton MD LAB BLOOD ORDERABLES Final Re sult Performing Organization Address [facility] Co de Phone Number [facility] [place] [address] * Critical Care (12/28/2024 2:52 PM CDT) [...] plan with the ICU team and other medical/implementation consultant staff, making frequent assessments and decisions [...] time documenting in the medical record us Magy Kaur NP IN CLINIC/BEDSIDE JUAN IVY [...] ORDERABLES Final Re sult Performing Organization Address [facility] [place] [address] * aPTT (12/28/2024 2:49 PM CDT) aPTT [...] Re sult Performing Organization Address [facility] [place] [address] * Protime-INR (12/28/2024 2:49 PM CDT) PT 13.1 10.2 - 13.5 sec INR 1.16 0.90 - 1.20 [facility] Comment: Interpretive data Oral anticoagulant therapeutic ranges: Venous thromboembolism prophylaxis or treatment: 2.0-3.0 CARDIOLOGY Standard range: 2.0-3.0 High-intensity range: 2.5-3.5 Refer to indication-specific guidelines for appropriate target ranges for prosthetic heart valve replacement. Current interpretive data was last revised on 2019. Blood 12/28/2024 2:49 PM CDT 12/28/2024 3:07 PM CDT Parth Dalton MD LAB BLOOD ORDERABLES Final Re sult Performing Organization Address [facility] [place] [address] * (ABNORMAL) CBC without differential (12/28/2024 2:49 PM CDT) WBC 4.40 3.80 - 9.90 K/cumm Hgb 9.4(L) 13.0 - 17.5 g/dL [facility] Comment:Hemoglobin delta due to surgical procedure. Hct 27.2(L) 38.9 - 50.3 % [facility] Plt 93(L) 150 - 400 K/cumm [facility] MPV 10.1 9.1 - 12.3 fL [facility] RBC 2.64(L) 4.30 - 5.80 M/cumm [facility] MCV 103.0(H) 81.3 - 96.4 fL [facility] MCH 35.6(H) 27.1 - 33.3 pg [facility] MCHC 34.6 32.3 - 35.7 g/dL [facility] RDW CV 14.3 11.1 - 14.9 % [facility] RDW SD 53.7(H) 35.7 - 48.1 fL [facility] NRBC abs 0.00 0.00 - 0.01 K/cumm [facility] Blood 12/28/2024 2:49 PM CDT 12/28/2024 3:07 PM CDT Parth Dalton MD LAB BLOOD ORDERABLES Final Re sult Performing Organization Address [facility] de Phone Number [facility] [place] [employer] [place] [address] * (ABNORMAL) Magnesium (12/28/2024 2:49 PM CDT) Pathologist [facility] Magnesium 2.9(H) 1.4 - 2.5 mg/dL Blood 12/28/2024 2:49 PM CDT 12/28/2024 3:07 PM CDT Parth Dalton MD LAB BLOOD ORDERABLES Final Re sult Performing Organization Address [facility] de Phone Number [facility] [place] [address] * (ABNORMAL) Basic metabolic panel (12/28/2024 2:49 PM CDT) Pathologist [facility] Sodium 145 135 - 145 mmol/L Potassium, pl 4.1 3.3 - 4.9 mmol/L [facility] Comment:Hemolyzed; Potassium value may be falsely elevated by as much as 0.3-0.5 mmol/L. Suggest redraw and reanalysis. Chloride 112(H) 97 - 110 mmol/L [facility] CO2 21(L) 22 - 32 mmol/L [facility] Anion gap 12 2 - 15 mmol/L [facility] BUN 18 6 - 25 mg/dL [facility] Creatinine 1.07 0.80 - 1.30 mg/dL [facility] Glucose 92 70 - 199 mg/dL [facility] Comment: Interpretive Data Fasting glucose >/= 126 [...] 2022. Calcium 8.5 8.5 - 10.3 mg/dL [facility] Blood 12/28/2024 2:49 PM CDT 12/28/2024 3:07 PM CDT us Parth Dalton MD LAB BLOOD ORDERABLES Final Re sult CYNTHIA MURPHY [facility] [place] [address] * (ABNORMAL) POC Blood Gas and Chemistries, Arterial - (12/28/2024 2:38 PM CDT) Pathologist [facility] pH, Art POC 7.31(L) 7.35 - 7.45 pCO2, Art POC 45 35 - 45 mmHg [facility] pO2, Art POC 94 83 - 108 mmHg [facility] Na, POC 142 135 - 145 mmol/L [facility] K POC 3.8 3.3 - 4.9 mmol/L [facility] Comment: Interpretive Data Not all point of care methods assess for hemolysis. Confirm with instrument and retest K+ if not consistent with clinical signs and symptoms. Current Interpretive Data was last revised on 2023. Cl, POC 114(H) 97 - 110 mmol/L [facility] Ionized Ca, POC 4.81 4.50 - 5.10 mg/dL [facility] Glucose, POC 92 70 - 199 mg/dL [facility] Lactate POC 0.8 0.7 - 2.0 mmol/L [facility] SO2 (felipe) arterial 98(H) 90 - 95 % [facility] Base excess, POC -3.5 mmol/L [facility] HCO3, Art POC 23 20 - 30 mmol/L [facility] Hct, POC 29.0(L) 41.4 - 51.6 % [facility] Total Hb, POC 9.7(L) 13.8 - 17.2 g/dL [facility] Blood 12/28/2024 2:38 PM CDT 12/28/2024 2:38 PM CDT Parth Dalton MD LAB POCT ORDERABLES - DEVICE Final Result [facility] [place] [address] * POCT heparin/ACT CPB (12/28/2024 12:41 PM CDT) Heparin POC 0.0 units/mL ACT, CPB 116 112 - 174 sec [facility] Blood 12/28/2024 12:4 1 PM CDT 12/28/2024 12:41 PM CDT Parth Dalton MD LAB POCT ORDERABLES - DEVICE Final Result Performing Organization Address [facility] [place] [address] * (ABNORMAL) POCT prothrombin time (12/28/2024 12:37 PM CDT) PT, POC 21.1(H) 11.7 - 16.6 sec INR, POC 1.6(H) 0.9 - 1.2 [facility] Blood 12/28/2024 12:3 7 PM CDT 12/28/2024 12:37 PM CDT Parth Dalton MD LAB POCT ORDERABLES - DEVICE Final Result Performing Organization Address [facility] [place] [address] * POCT Partial thromboplastin time (PTT) (12/28/2024 12:37 PM CDT) [facility] APTT, POC 33.4 32.5 - 46.1 sec Blood 12/28/2024 12:3 7 PM CDT 12/28/2024 12:37 PM CDT Parth Dalton MD LAB POCT ORDERABLES - DEVICE Final Result Performing Organization Address [facility] [place] [address] * (ABNORMAL) POCT hemoglobin, hematocrit and platelet count (12/28/2024 12:35 PM CDT) Hgb, POC 9.0(L) 13.0 - 17.5 g/dL Hematocrit POC 28.0(L) 38.9 - 50.3 % [facility] Platelet POC 76(L) 150 - 400 K/cumm [facility] Blood 12/28/2024 12:3 5 PM CDT 12/28/2024 12:35 PM CDT us Parth Dalton MD LAB POCT ORDERABLES - DEVICE Final Result CYNTHIA MURPHY [facility] [place] [address] * (ABNORMAL) POC Blood Gas and Chemistries, Arterial - (12/28/2024 12:34 PM CDT) pH, Art POC 7.35 7.35 - 7.45 pCO2, Art POC 39 35 - 45 mmHg [facility] pO2, Art POC 137(H) 83 - 108 mmHg [facility] Na, POC 143 135 - 145 mmol/L [facility] K POC 4.2 3.3 - 4.9 mmol/L [facility] Comment: Interpretive Data Not all point of care methods assess for hemolysis. Confirm with instrument and retest K+ if not consistent with clinical signs and symptoms. Current Interpretive Data was last revised on 2023. Cl, POC 112(H) 97 - 110 mmol/L [facility] Ionized Ca, POC 5.65(H) 4.50 - 5.10 mg/dL [facility] Glucose, POC 113 70 - 199 mg/dL [facility] Lactate POC 1.3 0.7 - 2.0 mmol/L [facility] SO2 (felipe) arterial 100(H) 90 - 95 % [facility] Base excess, POC -3.8 mmol/L [facility] HCO3, Art POC 22 20 - 30 mmol/L [facility] Hct, POC 29.0(L) 41.4 - 51.6 % [facility] Total Hb, POC 9.7(L) 13.8 - 17.2 g/dL [facility] Blood 12/28/2024 12:3 4 PM CDT 12/28/2024 12:34 PM CDT Parth Dalton MD LAB POCT ORDERABLES - DEVICE Final Result CYNTHIA MURPHY [facility] [place] [address] * (ABNORMAL) POC Blood Gas and Chemistries, Arterial - (12/28/2024 12:16 PM CDT) [facility] pH, Art POC 7.39 7.35 - 7.45 pCO2, Art POC 38 35 - 45 mmHg [facility] pO2, Art POC 318(H) 83 - [address] [facility] Na, POC 141 135 - 145 mmol/L [facility] K POC 4.9 3.3 - 4.9 mmol/L [facility] Comment: Interpretive Data Not all point of care methods assess for hemolysis. Confirm with instrument and retest K+ if not consistent with clinical signs and symptoms. Current Interpretive Data was last revised on 2023. Cl, POC 113(H) 97 - 110 mmol/L [facility] Ionized Ca, POC 4.33(L) 4.50 - 5.10 mg/dL [facility] Glucose, POC 116 70 - 199 mg/dL [facility] Lactate POC 1.3 0.7 - 2.0 mmol/L [facility] SO2 (felipe) arterial 100(H) 90 - 95 % [facility] Base excess, POC -1.7 mmol/L [facility] HCO3, Art POC 23 20 - 30 mmol/L [facility] Hct, POC 28.0(L) 41.4 - 51.6 % [facility] Total Hb, POC 9.4(L) 13.8 - 17.2 g/dL [facility] Blood 12/28/2024 12:1 6 PM CDT 12/28/2024 12:16 PM CDT us Parth Dalton MD LAB POCT ORDERABLES - DEVICE Final Result CYNTHIA MURPHY [facility] [place] [address] * (ABNORMAL) POCT heparin/ACT CPB (12/28/2024 11:52 AM CDT) Heparin POC <2.8 units/mL ACT, CPB 579(H) 112 - 174 sec [facility] Blood 12/28/2024 11:5 2 AM CDT 12/28/2024 11:52 AM CDT us Parth Dalton MD LAB POCT ORDERABLES - DEVICE Final Result [facility] [place] [address] * (ABNORMAL) POC Blood Gas and Chemistries, Arterial - (12/28/2024 11:44 AM CDT) Pathologist [facility] pH, Art POC 7.41 7.35 - 7.45 pCO2, Art POC 37 35 - 45 mmHg [facility] pO2, Art POC 296(H) 83 - 108 mmHg [facility] Na, POC 139 135 - 145 mmol/L [facility] K POC 4.9 3.3 - 4.9 mmol/L [facility] Comment: Interpretive Data Not all point of care methods assess for hemolysis. Confirm with instrument and retest K+ if not consistent with clinical signs and symptoms. Current Interpretive Data was last revised on 2023. Cl, POC 113(H) 97 - 110 mmol/L [facility] Ionized Ca, POC 4.34(L) 4.50 - 5.10 mg/dL [facility] Glucose, POC 115 70 - 199 mg/dL [facility] Lactate POC 1.0 0.7 - 2.0 mmol/L [facility] SO2 (felipe) arterial 100(H) 90 - 95 % [facility] Base excess, POC -0.9 mmol/L [facility] HCO3, Art POC 24 20 - 30 mmol/L [facility] Hct, POC 30.0(L) 41.4 - 51.6 % [facility] Total Hb, POC 10.0(L) 13.8 - 17.2 g/dL [facility] Blood 12/28/2024 11:4 4 AM CDT 12/28/2024 11:44 AM CDT Parth Dalton MD LAB POCT ORDERABLES - DEVICE Final Result Performing Organization Address City/[facility]/ZIP Co de Phone Number [facility] [place] [address] * (ABNORMAL) POCT heparin/ACT CPB (12/28/2024 11:25 AM CDT) Pathologist [facility] Heparin POC <2.8 units/mL ACT, CPB 599(H) 112 - 174 sec [facility] Blood 12/28/2024 11:2 5 AM CDT 12/28/2024 11:25 AM CDT Parth Dalton MD LAB POCT ORDERABLES - DEVICE Final Result Performing Organization Address [facility] de Phone Number [facility] [place] [address] * (ABNORMAL) POC Blood Gas and Chemistries, Arterial - (12/28/2024 11:18 AM CDT) Pathologist [facility] pH, Art POC 7.41 7.35 - 7.45 pCO2, Art POC 38 35 - 45 mmHg [facility] pO2, Art POC 285(H) 83 - 108 mmHg [facility] Na, POC 142 135 - 145 mmol/L [facility] K POC 5.0(H) 3.3 - 4.9 mmol/L [facility] Comment: Interpretive Data Not all point of care methods assess for hemolysis. Confirm with instrument and retest K+ if not consistent with clinical signs and symptoms. Current Interpretive Data was last revised on 2023. Cl, POC 112(H) 97 - 110 mmol/L [facility] Ionized Ca, POC 4.31(L) 4.50 - 5.10 mg/dL [facility] Glucose, POC 117 70 - 199 mg/dL [facility] Lactate POC 1.0 0.7 - 2.0 mmol/L [facility] SO2 (felipe) arterial 100(H) 90 - 95 % [facility] Base excess, POC -0.4 mmol/L [facility] HCO3, Art POC 24 20 - 30 mmol/L [facility] Hct, POC 30.0(L) 41.4 - 51.6 % [facility] Total Hb, POC 9.9(L) 13.8 - 17.2 g/dL [facility] Blood 12/28/2024 11:1 8 AM CDT 12/28/2024 11:18 AM CDT Parth Dalton MD LAB POCT ORDERABLES - DEVICE Final Result Performing Organization Address [facility]/ZIP Co de Phone Number [facility] [place] [employer] [place] [address] * (ABNORMAL) POCT heparin/ACT CPB (12/28/2024 10:54 AM CDT) Heparin POC <2.8 units/mL ACT, CPB 638(H) 112 - 174 sec [facility] Blood 12/28/2024 10:5 4 AM CDT 12/28/2024 10:54 AM CDT Parth Dalton MD LAB POCT ORDERABLES - DEVICE Final Result Performing Organization Address [facility] Co de Phone Number [facility] [place] [place] [address] * (ABNORMAL) POC Blood Gas and Chemistries, Arterial - (12/28/2024 10:47 AM CDT) pH, Art POC 7.37 7.35 - 7.45 pCO2, Art POC 41 35 - 45 mmHg [facility] pO2, Art POC 397(H) 83 - 108 mmHg [facility] Na, POC 142 135 - 145 mmol/L [facility] K POC 4.9 3.3 - 4.9 mmol/L [facility] Comment: Interpretive Data Not all point of care methods assess for hemolysis. Confirm with instrument and retest K+ if not consistent with clinical signs and symptoms. Current Interpretive Data was last revised on 2023. Cl, POC 111(H) 97 - 110 mmol/L [facility] Ionized Ca, POC 4.47(L) 4.50 - 5.10 mg/dL [facility] Glucose, POC 108 70 - 199 mg/dL [facility] Lactate POC 1.0 0.7 - 2.0 mmol/L [facility] SO2 (felipe) arterial 100(H) 90 - 95 % [facility] Base excess, POC -1.5 mmol/L [facility] HCO3, Art POC 24 20 - 30 mmol/L [facility] Hct, POC 32.0(L) 41.4 - 51.6 % [facility] Total Hb, POC 10.5(L) 13.8 - 17.2 g/dL [facility] Blood 12/28/2024 10:4 7 AM CDT 12/28/2024 10:47 AM CDT Parth Dalton MD LAB POCT ORDERABLES - DEVICE Final Result Performing Organization Address City/[facility]/ZIP Co de Phone Number [facility] [place] [employer] [place] [address] * (ABNORMAL) POCT heparin/ACT CPB (12/28/2024 10:27 AM CDT) Heparin POC >4.7 units/mL ACT, CPB 633(H) 112 - 174 sec [facility] Blood 12/28/2024 10:2 7 AM CDT 12/28/2024 10:27 AM CDT Parth Dalton MD LAB POCT ORDERABLES - DEVICE Final Result [facility] [place] [place] [address] * (ABNORMAL) POC Blood Gas and Chemistries, Arterial - (12/28/2024 10:20 AM CDT) pH, Art POC 7.34(L) 7.35 - 7.45 pCO2, Art POC 45 35 - 45 mmHg [facility] pO2, Art POC 333(H) 83 - 108 mmHg [facility] Na, POC 140 135 - 145 mmol/L [facility] K POC 4.1 3.3 - 4.9 mmol/L [facility] Comment: Interpretive Data Not all point of care methods assess for hemolysis. Confirm with instrument and retest K+ if not consistent with clinical signs and symptoms. Current Interpretive Data was last revised on 2023. Ionized Ca, POC 4.34(L) 4.50 - 5.10 mg/dL [facility] Glucose, POC 103 70 - 199 mg/dL [facility] Lactate POC 0.8 0.7 - 2.0 mmol/L [facility] SO2 (felipe) arterial 100(H) 90 - 95 % [facility] Base excess, POC -1.6 mmol/L [facility] HCO3, Art POC 24 20 - 30 mmol/L [facility] Hct, POC 33.0(L) 41.4 - 51.6 % [facility] Total Hb, POC 10.9(L) 13.8 - 17.2 g/dL [facility] Blood 12/28/2024 10:2 0 AM CDT 12/28/2024 10:20 AM CDT Parth Dalton MD LAB POCT ORDERABLES - DEVICE Final Result [facility] [place] [address] * (ABNORMAL) POCT heparin/ACT CPB (12/28/2024 10:02 AM CDT) Heparin POC >4.7 units/mL ACT, CPB 524(H) 112 - 174 sec [facility] Blood 12/28/2024 10:0 2 AM CDT 12/28/2024 10:02 AM CDT Parth Dalton MD LAB POCT ORDERABLES - DEVICE Final Result Performing Organization Address City/[facility]/ZIP Co de Phone Number [facility] [place] [address] * (ABNORMAL) POC Blood Gas and Chemistries, Arterial - (12/28/2024 9:56 AM CDT) pH, Art POC 7.32(L) 7.35 - 7.45 pCO2, Art POC 50(H) 35 - [address] [facility] pO2, Art POC 178(H) 83 - [address] [facility] Na, POC 141 135 - 145 mmol/L [facility] K POC 4.2 3.3 - 4.9 mmol/L [facility] Comment: Interpretive Data Not all point of care methods assess for hemolysis. Confirm with instrument and retest K+ if not consistent with clinical signs and symptoms. Current Interpretive Data was last revised on 2023. Cl, POC 111(H) 97 - 110 mmol/L [facility] Ionized Ca, POC 4.93 4.50 - 5.10 mg/dL [facility] Glucose, POC 110 70 - 199 mg/dL [facility] Lactate POC 0.9 0.7 - 2.0 mmol/L [facility] SO2 (felipe) arterial 100(H) 90 - 95 % [facility] Base excess, POC -0.9 mmol/L [facility] HCO3, Art POC 26 20 - 30 mmol/L [facility] Hct, POC 37.0(L) 41.4 - 51.6 % [facility] Total Hb, POC 12.4(L) 13.8 - 17.2 g/dL [facility] Blood 12/28/2024 9:56 AM CDT 12/28/2024 9:56 AM CDT Parth Dalton MD LAB POCT ORDERABLES - DEVICE Final Result [facility] Department [place] [address] * POCT heparin dose response, CPB (12/28/2024 8:22 AM CDT) Baseline ACT POC 136 112 - 174 sec Heparin dose response slope POC 94 60 - 195 [facility] Projected Heparin Concentration POC <0.1 units/mL [facility] Blood 12/28/2024 8:22 AM CDT 12/28/2024 8:22 AM CDT Parth Dalton MD LAB POCT ORDERABLES - DEVICE Final Result [facility] [place] [address] * Central Venous Line (12/28/2024 8:17 AM [...] Art POC 41 35 - 45 mmHg [facility] pO2, Art POC 125(H) 83 - 108 mmHg [facility] Na, POC 142 135 - 145 mmol/L [facility] K POC 3.8 3.3 - 4.9 mmol/L [facility] Comment: Interpretive Data Not all point of care methods assess for hemolysis. Confirm with instrument and retest K+ if not consistent with clinical signs and symptoms. Current Interpretive Data was last revised on 2023. Cl, POC 109 97 - 110 mmol/L [facility] Ionized Ca, POC 4.98 4.50 - 5.10 mg/dL [facility] Glucose, POC 102 70 - 199 mg/dL [facility] Lactate POC 1.0 0.7 - 2.0 mmol/L [facility] SO2 (felipe) arterial 100(H) 90 - 95 % [facility] Base excess, POC -0.2 mmol/L [facility] HCO3, Art POC 25 20 - 30 mmol/L [facility] Hct, POC 36.0(L) 41.4 - 51.6 % [facility] Total Hb, POC 12.0(L) 13.8 - 17.2 g/dL [facility] Blood 12/28/2024 8:15 AM CDT 12/28/2024 8:15 AM CDT us Parth Dalton MD LAB POCT ORDERABLES - DEVICE Final Result Performing Organization Address City/[facility]/ZIP Co de Phone Number [facility] [place] [address] * YONY Add-On For OR (12/28/2024 7:51 AM CDT) BSA 2.09 m2 [facility] PROSOLV_CARDIORE PORT_CONS SCIMAGE Narrative [facility] PROSOLV_CARDIOREPORT_CONS SCIMAGE - 12/28/2024 7:51 AM CDT Procedure Auto Finalized by Rule: BW CV YONY DURING CASE OR Please see the Anesthesiologist's Procedure Note for the results. us Simon Roberts MD CV ECHO PROCEDURES Final Result Performing Organization Address [facility]/ZIP Co de Phone Number [facility] PROSOLV_CARDIOREPORT_CONS SCIMAGE * [place] AN PROCEDURE PLACEHOLDER (12/28/2024 7:30 AM CDT) [...] code: YONY placement and diagnostic exam, non-congenital (96950) Echocardiographic and doppler measurements: Ventricles: Left ventricle: [...] inferior: hypokinetic 16- Apical septal: hypokinetic 17- Palco: hypokinetic Valves: Aortic Valve: Annulus: normal Leaflet [...] CDT 12/27/2024 9:37 PM CDT Francy Bernabe NP LAB BLOOD ORDERABLES Final Result Performing Organization Address [facility] Co de Phone Number CYN[facility]IA [facility] [place] [address] * (ABNORMAL) eGFR (12/27/2024 9:28 PM CDT) [...] CDT 12/27/2024 9:46 PM CDT Francy Bernabe NP LAB BLOOD ORDERABLES Final Result Performing Organization Address [facility] Co de Phone Number CYNTHIA MURPHY Fernanda [facility] [place] [address] * (ABNORMAL) aPTT (12/27/2024 9:28 PM CDT) aPTT 100(H) 26 - 38 sec Comment: Interpretive Data Heparin therapeutic range: 66.0 - 100.0 seconds. Range based on correlation with therapeutic heparin activity range of 0.3 - 0.7 Units/mL. Current interpretive data was last revised on 2023. Blood 12/27/2024 9:28 PM CDT 12/27/2024 9:41 PM CDT Narrative CYNTHIA [facility] - 12/27/2024 10:03 PM CDT STAT PTT [...] peripherally (not from CVC). us Tesha Barrera CUTTING TABLE OPERATOR FIRST LAB BLOOD ORDERABLES Final Resul t Performing Organization Address City/[facility] Co de Phone Number [facility] [place] [employer] [place] [address] * Antithrombin Activity (12/27/2024 9:28 PM CDT) Pathologist [facility] Antithrombin III 84 80 - 125 % Comment: Interpretive Data High concentrations of anti-Xa direct oral anticoagulants can cause Antithrombin activities to be falsely elevated. Current interpretive data was last reviewed 2023 Blood 12/27/2024 9:28 PM CDT 12/27/2024 9:46 PM CDT us Justin Lambert CUTTING TABLE OPERATOR FIRST LAB BLOOD ORDERABLES F inal Result [facility] [place] [employer] [place] [address] * (ABNORMAL) CBC without differential (12/27/2024 9:28 PM CDT) WBC 6.15 3.80 - 9.90 K/cumm Hgb 12.6(L) 13.0 - 17.5 g/dL [facility] Hct 37.9(L) 38.9 - 50.3 % [facility] Plt 151 150 - 400 K/cumm [facility] MPV 10.4 9.1 - 12.3 fL [facility] RBC 3.69(L) 4.30 - 5.80 M/cumm [facility] MCV 102.7(H) 81.3 - 96.4 fL [facility] MCH 34.1(H) 27.1 - 33.3 pg [facility] MCHC 33.2 32.3 - 35.7 g/dL [facility] RDW CV 14.0 11.1 - 14.9 % [facility] RDW SD 53.0(H) 35.7 - 48.1 fL [facility] NRBC abs 0.00 0.00 - 0.01 K/cumm [facility] Blood 12/27/2024 9:28 PM CDT 12/27/2024 9:46 PM CDT Francy Bernabe CUTTING TABLE OPERATOR FIRST LAB BLOOD ORDERABLES Final Result Performing Organization Address City/[facility]/ZIP Co de Phone Number [facility] [place] [employer] [place] [address] * Magnesium (12/27/2024 9:28 PM CDT) [facility] Magnesium 1.9 1.4 - 2.5 mg/dL Blood 12/27/2024 9:28 PM CDT 12/27/2024 9:46 PM CDT Francy Bernabe CUTTING TABLE OPERATOR FIRST LAB BLOOD ORDERABLES Final Result Performing Organization Address City/[facility]/ZIP Co de Phone Number [facility] [place] [employer] [place] [address] * Basic metabolic panel (12/27/2024 9:28 PM CDT) Pathologist [facility] Sodium 142 135 - 145 mmol/L Potassium, pl 4.3 3.3 - 4.9 mmol/L [facility] Chloride 106 97 - 110 mmol/L [facility] CO2 25 22 - 32 mmol/L [facility] Anion gap 11 2 - 15 mmol/L [facility] BUN 24 6 - 25 mg/dL [facility] Creatinine 1.28 0.80 - 1.30 mg/dL [facility] Glucose 136 70 - 199 mg/dL [facility] Comment: Interpretive Data Fasting glucose >/= 126 [...] 2022. Calcium 9.3 8.5 - 10.3 mg/dL [facility] Blood 12/27/2024 9:28 PM CDT 12/27/2024 9:46 PM CDT us Francy Bernabe NP LAB BLOOD ORDERABLES Final Result [facility] Department [place] [address] * Prepare RBC: 4 Units (12/27/2024 3:41 PM CDT) Product code [id number] [facility] Unit Number [id number] 7-L [facility] Product Blood Type APOS CERNER [facility] Dispense Status RETURNED [facility] Product code [id number] [facility] Unit Number [id number] 1-M [facility] Product Blood Type APOS CERNER [facility] Dispense Status RETURNED [facility] Product code [id number] CERNER [facility] Unit Number [id number] 4-C [facility] Product Blood Type APOS CERNER [facility] Dispense Status RETURNED [facility] Product code [id number] Unit Number [id number] 9-A [facility] Product Blood Type APOS [facility] Dispense Status RETURNED [facility] Blood 12/27/2024 3:41 PM CDT 12/27/2024 3:40 PM CDT Narrative CYNTHIA [facility] - 12/28/2024 3:05 PM CDT Specify Procedure:->CABG Are special requirements needed? (All products are leukoreduced and CMV- safe)- >No Date required:-[id number] LRRBC # of [id number] Reasons:-Hold for procedure (specify procedure)} Lacey Ly NP BLOOD BANK PRODUCT ORDERAB LES Final Result [facility] Department [place] [address] * XR Chest Pa Lateral 2 Views [...] signed by: Jan Myers M.D. Justin Lambert CUTTING TABLE OPERATOR FIRST IMG XR PROCEDURES Raquel l Result * US Carotids Duplex Bilateral (12/27/2024 10:03 AM CDT) Anatomical Region Laterality Modality Vascular Bilateral Ultrasound 12/27/2024 9:03 AM CDT Narrative 12/27/2024 1:25 PM CDT [facility] - Department of Vascular Surgery, Vascular Laboratory [address] [place] [address] Carotid Duplex Ultrasound Report Patient Name: MEGAN TITUS : 1950 (74y 10m) Study Date: 12/27/2024 9:03:35 AM Gender: M Tech: Location: [id number] Ref Provider: JUSTIN LAMBERT Quality: Adequate Order [...] LT VERT PSV 29 cm/sec FINDINGS: Performing Scarf And Anneal Operator: Martine Canas RVT. Rt Common Carotid Artery: [...] Procedure Note Seth Sexton MD - 12/27/2024 [facility] - Department of Vascular Surgery,Vascular Laboratory [address] [place] [address] Carotid Duplex Ultrasound Report Patient Name: MEGAN TITUS : 1950 (74y 10m) Study Date: 12/27/2024 9:03:35 AM Gender: M Tech: Location: [id number] Ref Provider: JUSTIN LAMBERT Quality: Adequate Order [...] LT VERT PSV 29 cm/sec FINDINGS: Performing Scarf And Anneal Operator: Martine Canas RVT. Rt Common Carotid Artery: [...] above. Electronically Signed By: Seth Sexton MD [facility] 12/27/2024 12:34:30 PM CDT us Justin Lambert NP IMG US PROCEDURES Raquel l Result * US Vein Mapping Duplex Lower Extremity Bilateral (12/27/2024 10:02 AM CDT) Anatomical Region Laterality Modality Vascular Bilateral Ultrasound 12/27/2024 9:15 AM CDT Narrative 12/27/2024 1:35 PM CDT [employer] [facility] - Department of Vascular Surgery, Vascular Laboratory [address] [place] [id number] Lower Extremity Vein Mapping Report Patient Name: MEGAN TITUS : 1950 (74y 10m) Study Date: 12/27/2024 9:15:50 AM Gender: M Scarf And Anneal Operator: ALEIDA Location: [id number] Ref Provider: JUSTIN LAMBETR Quality: Adequate Order Provider: JUSTIN LAMBERT PROCEDURES: [...] Small Saphenous Distal 0.20 cm FINDINGS: Performing Scarf And Anneal Operator: Martine Canas RVT. Bilateral: The common femoral, [...] Procedure Note Seth Sexton MD - 12/27/2024 [facility] - Department of Vascular Surgery,Vascular Laboratory [address] [place] [address] Lower Extremity Vein Mapping Report Patient Name: MEGAN TITUS : 1950 (74y 10m) Study Date: 12/27/2024 9:15:50 AM Gender: M Scarf And Anneal Operator: ALEIDA Location: [id number] Ref Provider: JUSTIN LAMBERT Quality: Adequate Order [...] Small Saphenous Distal 0.20 cm FINDINGS: Performing Scarf And Anneal Operator: Martine Canas RVT. Bilateral: The common femoral, [...] above. Electronically Signed By: Seth Sexton MD [facility] 12/27/2024 1:35:27 PM CDT us Justin Lambert CUTTING TABLE OPERATOR FIRST IMG US PROCEDURES Raquel l Result * TRANSTHORACIC ECHO (TTE) COMPLETE W DOPPLER/CF W CONTRAST (12/27/2024 8:47 AM CDT) EF Mod BP 38 % CONS SCIMAGE Anatomical Region Laterality Modality Ultrasound 12/27/2024 7:13 AM CDT Narrative 12/27/2024 10:50 AM CDT [facility] [place] [address] Transthoracic Echocardiographic Report Patient Name: MEGAN TITUS : 1950 (74y 10m) Sex: M Study Date: 12/27/2024 07:13:57 AM Ht(Inch): 70 Wt(Lb): 195.11 BSA: 2.09 Scarf And Anneal Operator: Santiago Montiel RDCS Location: [id number] Order Provider: JUSTIN LAMBERT Heart Rate: 95 [...] LA Length 4C 7.12 cm AI Decel Sebastian 2.38 m/s2 LA Length 2C 7.04 cm [...] Procedure Note Gerardo Dickson MD - 12/27/2024 [facility] [place] [address] Transthoracic Echocardiographic Report Patient Name: MEGAN TITUS : 1950 (74y 10m) Sex: M Study Date: 12/27/2024 07:13:57 AM Ht(Inch): 70 Wt(Lb): 195.11 BSA: 2.09 Scarf And Anneal Operator: Santiago Montiel RDCS Location: [id number] Order Provider:JUSTIN LAMBERT Heart Rate: 95 BMI: [...] [ -25.0 - -18.0 ] AI Decel [id number] sec LA Length 4C 7.12 cm AI Decel Slope2.38 m/s2 LA Length 2C 7.04 cm AI WYP274.29 msec LA Volume BP 112.17 ml MV E Peak Vel0.9 m/s [ 0.6 - 1.3 ] LA Volume Index 53.65 ml/m2 [ 16.00 - 34.00 ] MV Decel Acwz812.92 msec [ 104.00 - 258.00 ] RV [...] Asc Ao Diam 2D 3.53 cm MR JAU980.7 cm Asc Ao Index 1.69 cm/m2 MR [...] Gerardo Dickson MD 12/27/2024 10:50:10 AM CDT us Justin Lambert NP CV ECHO PROCEDURES Fin [...] CDT 12/27/2024 6:29 AM CDT Narrative CYNTHIA MURPHY - 12/27/2024 6:54 AM CDT STAT PTT [...] NP LAB BLOOD ORDERABLES Final Resul t CYNTHIA [facility] Department of Laboratories [place], [place] [id number] * (ABNORMAL) aPTT (12/27/2024 12:24 AM CDT) [...] NP LAB BLOOD ORDERABLES Final Resul t Performing Organization Address City/[facility]/ZIP Co de Phone Number CYNTHIA [facility] Department [place] [address] * Hepatitis C antibody Blood (02/17/2023 3:47 PM CDT) Hep C Ab Nonreactive Nonreactive Comment: Interpretive [...] 3:47 PM CDT 02/17/2023 6:43 PM CDT us Jeferson Elena MD LAB MICROBIOLOGY - GENERAL ORDERABLES Final Result CYNTHIA CISNEROS [address] [address] Department [place] [address] * Stool DNA - Cologuard (10/20/2022 11:30 AM CDT) Stool DNA - Cologuard Negative Negative [employer] (CLIA #:[id number]) Comment: NEGATIVE TEST RESULT. A negative Cologuard [...] screened with both Cologuard and colonoscopy. (Moshe Sneed et al, N Engl J Med 2014;370(14):8405-7547) The normal value (reference range) for this assay is negative. COLOGUARD RE-SCREENING RECOMMENDATION: Periodic colorectal cancer screening is an important part of preventive healthcare for asymptomatic individuals at average risk for colorectal cancer. Following a negative Cologuard result, the [place] Cancer Society and U.S. Multi-Society Task Force screening guidelines recommend a Cologuard re-screening interval of 3 years. References: [place] [employer] Guideline for Colorectal Cancer Screening: https://www.cancer.org/cancer/urcqj-kiwsyx-ogngth/uvrsgttfw-perfieubd-njzagke/ac s-rec ommendations.html.; Brian DAY, Tracie PEACE, Yan WoodK, Colorectal Cancer Screening: Recommendations for Physicians and Patients from the U.S. Multi-Society Task Force on Colorectal Cancer Screening , Am J Gastroenterology 2017; 112:0737-8492. TEST DESCRIPTION: Composite algorithmic analysis of stool [...] screened with both Cologuard and colonoscopy. (Moshe Sneed et al, N Engl J Med 2014;370(14):9100-2321.) Cologuard may produce a false negative or false positive result (no colorectal cancer or precancerous polyp present at colonoscopy follow up). A negative Cologuard test result does not guarantee the absence of CRC or advanced adenoma (pre-cancer). The current Cologuard screening interval is every 3 years. ([place] [employer] Society and U.S. Multi-Society Task Force). Cologuard performance data in a 10,000 patient pivotal study using colonoscopy as the reference method can be accessed at the following location: www.Zapproved/results. Additional description of the Cologuard test process, warnings and precautions can be found at www.cologuard.com. Stool 10/20/2022 11:3 0 AM CDT 10/21/2022 9:26 PM CDT Yaya Elizondo MD LAB BODY FLUIDS AND STOOLS OR DERABLES Final Result [id number] (CLIA #:[id number]) [place] [address] 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 ADVANCE DIRECTIVE 04/14/2022 6:41 AM [facility] DNR * Full Code (Latest Code Status [...] Agents on File Name Relationship Healthcare Agent Relationsmn p Communication Norah Titus Sister Health Care Agent Care Teams Backrest Assembler Relationship Specialty Start Date End Date Jeferson Elena MD [address] [facility] [address] [place] [address] PCP - General Family Medicine 02/17/23 Mykel Mccauley DO [address] [facility], [address] [place] [address] Medical Oncologist/Hematologis t Hematology and Oncology 08/28/21 Micheal Cabral MD [address] [facility] [address] [place] [address] Consulting Physician General Surgery 08/11/22 Artie Henderson MD [address] [facility] [address] [place] [address] Referring Physician Cardiology 02/17/23 Ana M Renteria MD [address] [facility] [address] [place] [address] Referring Physician Cardiology 11/21/23 [place] [address] [address] Consulting Physician Endocrinology Diabetes & Metabolism 11/21/23 [place] [address] [address] Nurse Practitioner Endocrinology Diabetes & Metabolism 11/21/23 Parth Dalton MD [id number] [place] [address] Surgeon Cardiothoracic Surgery 12/07/24
--- OUTSIDE RECORDS SUMMARY | 2025-03-29 16:15 | XMS_ITS ---
Author Organization [facility] Address [address] [place] [address] Care Team Providers Care Attending Anesthesiologist Name Role Phone Mykel Mccauley Unavailable [phone] Micheal Cabral MD Unavailable [phone] Jeferson Elena MD Primary Care Provider Artie Henderson MD Unavailable [phone] Ana M Renteria MD Unavailable Shiva Barrientos [...] Assessment & Plan (01/19/2025 8:49 AM CDT): BODY LINE FINISHER saw patient on 01/09 at bedside 01/10 reg diet with nectar thick liquids 01/11 [...] revealed mild tracheomalacia - 01/17 transition to [facility] - ENT to sign off - Follow [...] CI 2.5 w chest closed -ASA/statin/zetia/spirolactone daily -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 Normal [...] 11/19/2024 Assessment & Plan (03/25/2025 3:22 PM MACHINING AND ASSEMBLY SUPERVISOR): This has been in place for 45 years. 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 Will refer him back to Orthopedics to discuss steroid injections for both of his knees Hand arthritis 03/19/2024 Assessment & Plan (03/19/2024 11:06 AM MACHINING AND ASSEMBLY SUPERVISOR): Will obtain new x-rays today. Referral to ortho hand in [place]. I told him alternatively there would be Dr. Du at [facility]. Encounter for Medicare annual wellness exam 12/2023 [...] daily Assessment & Plan (07/13/2024 10:40 AM MACHINING AND ASSEMBLY SUPERVISOR): Chronic problem. 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 In case of any extreme weakness, abdominal pain, diarrhea or dizziness, it is recommended for you to call an ambulance and proceed to the nearest emergency room. Assessment & Plan (07/05/2023 2:53 PM MACHINING AND ASSEMBLY SUPERVISOR): Chronic problem. Currently taking prednisone 5mg twice [...] room. Assessment & Plan (05/19/2023 12:49 PM MACHINING AND ASSEMBLY SUPERVISOR): Patient continuing his Prednisone and set to follow up with Endo in June. Assessment & Plan (11/18/2022 3:01 PM CDT): Chronic problem. Discussed tapering prednisone dose from 15mg total/day down to 5mg daily. Reserving 10-15mg for sick days. Will call if any difficulties with tapering. Reviewed red flags. Will check TSH, T3, T4 today. Verified that he uses [facility]. Aware to check results/results letter in [facility] [employer]. Will contact by phone if needed. 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 In [...] 07/04/2022 Assessment & Plan (07/05/2022 7:58 PM MACHINING AND ASSEMBLY SUPERVISOR): On 12/2021 started high dose steroid due [...] tapering. Assessment & Plan (07/04/2022 4:17 PM MACHINING AND ASSEMBLY SUPERVISOR): On 12/2021 started high dose steroid due [...] Cardiology Assessment & Plan (05/19/2023 12:42 PM MACHINING AND ASSEMBLY SUPERVISOR): Patient continues to follow with Cardiology. Continues [...] changes. Assessment & Plan (07/05/2022 8:13 PM MACHINING AND ASSEMBLY SUPERVISOR): TTE 03/2022 with LV dilation with EF [...] 09/09/2022) Assessment & Plan (07/04/2022 4:23 PM MACHINING AND ASSEMBLY SUPERVISOR): TTE 03/2022 with LV dilation with EF [...] cost Assessment & Plan (07/03/2022 5:05 PM MACHINING AND ASSEMBLY SUPERVISOR): TTE 03/2022 with LV dilation with EF [...] cost Assessment & Plan (04/05/2022 4:32 PM MACHINING AND ASSEMBLY SUPERVISOR): Heart Failure with Reduced Ejection Fraction: EF [...] currently Assessment & Plan (04/04/2022 3:23 PM MACHINING AND ASSEMBLY SUPERVISOR): Heart Failure with Reduced Ejection Fraction: EF 25% (TTE 03/2022), profile A, NYHA II, - Diuretic: None currently - Beta Jihan: Metoprolol tartrate 37.5 mg BID, will consolidate to XL prior to D/C - BRENTON/ARB/ARNI: On Entresto at home, will resume as tolerated - Device: No device currently Failure to thrive in adult 03/25/2022 Assessment & Plan (04/05/2022 4:31 PM MACHINING AND ASSEMBLY SUPERVISOR): - Patient presenting with decreased PO intake, noncompliance medications, reported wt loss - RD consult, currently on TF via DHT - Swallow evaluation to remove DHT and begin oral nutrition Assessment & Plan (04/04/2022 3:20 PM MACHINING AND ASSEMBLY SUPERVISOR): - Patient presenting with decreased PO intake, noncompliance medications, reported wt loss - RD consult, currently on TF via DHT Falls 03/25/2022 Assessment & Plan (04/05/2022 4:31 PM MACHINING AND ASSEMBLY SUPERVISOR): - Patient lives alone with reportedly intermittent falls at home; last prior to admission without reported head trauma - Head CT unremarkable - Fall precautions, empiric coverage for Wernicke per above Assessment & Plan (04/04/2022 3:20 PM MACHINING AND ASSEMBLY SUPERVISOR): - Patient lives alone with reportedly intermittent falls at home; last prior to admission without reported head trauma - Head CT unremarkable - Fall precautions, empiric coverage for Wernicke per above - PT/OT High risk medication use 03/25/2022 Atrial fibrillation 12/01/2021 Overview (12/01/2021): Added automatically from request for surgery [id number] Assessment & Plan (01/19/2025 8:45 AM CDT): [...] 01/19 Assessment & Plan (07/05/2022 8:09 PM MACHINING AND ASSEMBLY SUPERVISOR): EKG on admission w/ AFL - eliquis - metop Assessment & Plan (07/04/2022 4:24 PM MACHINING AND ASSEMBLY SUPERVISOR): EKG on admission w/ AFL - eliquis - metop Assessment & Plan (07/02/2022 9:24 PM MACHINING AND ASSEMBLY SUPERVISOR): EKG on admission w/ AFL - eliquis - metop Assessment & Plan (04/05/2022 4:30 PM MACHINING AND ASSEMBLY SUPERVISOR): Presenting with Afib with HR currently at goal < 110, episode of hypotension 03/29 with RVR requiring ICU transfer - On metoprolol tartrate 37.5 mg BID, rate controlled - Continue telemetry for now (currently rate controlled) - Theraputic lovenox Assessment & Plan (04/04/2022 3:18 PM MACHINING AND ASSEMBLY SUPERVISOR): Presenting with Afib with HR currently at goal < 110, episode of hypotension 03/29 with RVR requiring ICU transfer - On metoprolol tartrate 37.5 mg BID, rate controlled - Continue telemetry for now - Theraputic lovenox Chronic HFrEF (heart failure with reduced ejection fraction) 10/22/2021 Assessment & Plan (03/25/2025 3:27 PM MACHINING AND ASSEMBLY SUPERVISOR): Continue ASA, Eliquis, Statin and Zetia Continue [...] function Assessment & Plan (03/28/2022 2:53 PM MACHINING AND ASSEMBLY SUPERVISOR): - Recent TTE 2wks ago with EF [...] daily. Assessment & Plan (07/05/2022 8:06 PM MACHINING AND ASSEMBLY SUPERVISOR): Statin Assessment & Plan (07/04/2022 4:23 PM MACHINING AND ASSEMBLY SUPERVISOR): Statin Assessment & Plan (07/03/2022 5:08 PM MACHINING AND ASSEMBLY SUPERVISOR): Statin Assessment & Plan (04/05/2022 4:32 PM MACHINING AND ASSEMBLY SUPERVISOR): - Cont statin once able to tolerate PO Assessment & Plan (03/25/2022 11:54 PM MACHINING AND ASSEMBLY SUPERVISOR): - Cont statin Hypertension 08/28/2021 Assessment & [...] KK Assessment & Plan (04/05/2022 4:32 PM MACHINING AND ASSEMBLY SUPERVISOR): - Submassive PE diagnosed in 07/2021 - CT PE negative here (in setting of apixaban noncompliance) - Lovenox Assessment & Plan (04/04/2022 3:21 PM MACHINING AND ASSEMBLY SUPERVISOR): - Submassive PE diagnosed in 07/2021 - CT PE negative here (in setting of apixaban noncompliance) - Lovenox Clear cell carcinoma of kidney, 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 Mccauley. Bee 2018. S/p ablation and radical nephrectomy. Completed 5 cycles of pembrolizumab -12/2021. Hx of immunotherapy neurotoxicity and prior treated with course of steroids and IVIG (12/2021, 03/2022) Assessment & Plan (07/04/2022 4:23 PM MACHINING AND ASSEMBLY SUPERVISOR): Follows with Dr. Mccauley. Bee 2018. S/p ablation and radical nephrectomy. Completed 5 cycles of pembrolizumab -12/2021. 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 Mccauley. Bee 2018. S/p ablation and radical nephrectomy. Completed 5 cycles of pembrolizumab 3-12/2021. 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 Mccauley. Dx 2018. S/p ablation and radical nephrectomy. Completed 5 cycles of pembrolizumab 3-12/2021. 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 - Continues on IVIG and solumedrol per oncology Assessment & Plan (04/04/2022 3:20 PM MACHINING AND ASSEMBLY SUPERVISOR): Follows with Dr. Mccauley. Dx 2018. S/p ablation and radical nephrectomy. Completed 5 cycles of pembrolizumab 3-12/2021. 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 - Continues on IVIG and solumedrol per oncology Chronic left shoulder pain 02/18/2016 Acute renal failure superimposed on chronic kidn ey disease Assessment & Plan (07/05/2022 8:12 PM MACHINING AND ASSEMBLY SUPERVISOR): Cr 1.8 (baseline 1) - euvolemic on exam without recent GI losses or poor PO intake - IVF were hold - Initially aldactone, entresto and lasix were hold. - Cr improve to 1.37. - Restarted entresto and lower dose of lasix (from 40 mg daily to 20 mg daily) Assessment & Plan (07/04/2022 4:25 PM MACHINING AND ASSEMBLY SUPERVISOR): Cr 1.8 (baseline 1) - euvolemic on exam without recent GI losses or poor PO intake - Cr improve to 1.47. - would not give fluids - Hold aldactone, entresto and lasix Assessment & Plan (07/03/2022 5:08 PM MACHINING AND ASSEMBLY SUPERVISOR): Cr 1.8 (baseline 1) - euvolemic on exam without recent GI losses or poor PO intake - improving without intervention - would not give fluids - Hold aldactone, entresto and lasix Assessment & Plan (04/05/2022 4:30 PM MACHINING AND ASSEMBLY SUPERVISOR): - Presenting with Cr 1.81 up from baseline ~1.3 in setting of decreased PO intake, now resolved with supportive care - Avoid nephrotoxins, renal-dose meds Assessment & Plan (04/04/2022 3:18 PM MACHINING AND ASSEMBLY SUPERVISOR): - Presenting with Cr 1.81 up from baseline ~1.3 in setting of decreased PO intake, now resolved with supportive care - Avoid nephrotoxins, renal-dose meds Drug reaction Neurotoxicity Assessment & Plan (07/05/2022 7:58 PM MACHINING AND ASSEMBLY SUPERVISOR): 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, high dose steroids, now on pred 10 daily - On the ED receive hydrocortisone 59 ng x 3 - Steroid as mention - should not need PJP ppx on this dose - start PPI ppx Assessment & Plan (07/04/2022 4:19 PM MACHINING AND ASSEMBLY SUPERVISOR): 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, high dose steroids, now on pred 10 daily - On the ED receive hydrocortisone 59 ng x 3 - Steroid as mention - should not need PJP ppx on this dose - start PPI ppx Assessment & Plan (07/03/2022 4:51 PM MACHINING AND ASSEMBLY SUPERVISOR): 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, high dose steroids, now on pred 10 daily - On the ED receive hydrocortisone 59 ng x 3 - Now pred 10 - should not need PJP ppx on this dose - start PPI ppx Assessment & Plan (04/05/2022 4:30 PM MACHINING AND ASSEMBLY SUPERVISOR): Patient presenting with acute on chronic encephalopathy [...] redirectable Assessment & Plan (04/04/2022 3:16 PM MACHINING AND ASSEMBLY SUPERVISOR): Patient presenting with acute on chronic encephalopathy [...] (KEYTRUDA) IVPB in 100 mL Toxicity/Comp lication Parisa, John DO Chen 5 of 24 cycles started Lifetime Dose [...] 10/13/2022 Assessment & Plan (07/05/2022 8:06 PM MACHINING AND ASSEMBLY SUPERVISOR): SBP has been on the low 100s [...] started. Assessment & Plan (07/04/2022 4:23 PM MACHINING AND ASSEMBLY SUPERVISOR): SBP has been on the low 100s [...] lasix Assessment & Plan (07/03/2022 5:03 PM MACHINING AND ASSEMBLY SUPERVISOR): SBP has been on the low 100s [...] 12/26/2024 Assessment & Plan (07/05/2022 7:54 PM MACHINING AND ASSEMBLY SUPERVISOR): home metal #5 - does not use trach collar Assessment & Plan (07/04/2022 4:17 PM MACHINING AND ASSEMBLY SUPERVISOR): home metal #5 - does not use trach collar Assessment & Plan (07/02/2022 10:20 PM MACHINING AND ASSEMBLY SUPERVISOR): home metal #5 - does not use trach collar Shortness of breath 07/01/2022 10/14/19 23 Assessment & Plan (07/05/2022 8:13 PM MACHINING AND ASSEMBLY SUPERVISOR): PHx of HFrEF (EF 20%), PE on [...] No wheezing on exam. Stress test at [facility] 2018 (media) indeterminate. May have had ischemic eval afterwards but records not available. Cardiac MRI 06/2022 w/ Dilated cardiomyopathy with markedly reduced right and left ventricular ejection fraction. No evidence of myocarditis Plan: - empiric coverage for PNM: CTX, azithro for 3 days - BCx NGTD - Resolve SOB Assessment & Plan (07/04/2022 4:19 PM MACHINING AND ASSEMBLY SUPERVISOR): PHx of HFrEF (EF 20%), PE on [...] No wheezing on exam. Stress test at [facility] 2019 (media) indeterminate. May have had [...] 09/09/2022) Assessment & Plan (07/03/2022 4:48 PM MACHINING AND ASSEMBLY SUPERVISOR): PHx of HFrEF (EF 20%), PE on [...] No wheezing on exam. Stress test at [facility] 2018 (media) indeterminate. May have had [...] (06/03/2022): Added automatically from request for surgery [id number] Severe malnutrition 03/26/2022 11/21/19 24 Assessment & Plan (04/05/2022 4:32 PM MACHINING AND ASSEMBLY SUPERVISOR): RD following, continue TF - BODY LINE FINISHER to follow for continued swallow eval given risk of aspiration Assessment & Plan (04/04/2022 3:21 PM MACHINING AND ASSEMBLY SUPERVISOR): RD following, continue TF - BODY LINE FINISHER to follow for continued swallow eval given risk of aspiration Hypercalcemia 03/25/2022 03/26/2022 Assessment & Plan (03/25/2022 11:54 PM MACHINING AND ASSEMBLY SUPERVISOR): - Presume secondary to dehydration - monitor s/p IVF SIRS (systemic inflammatory response syndrome) 03/25/2022 12/07/2024 Shortness of breath 03/09/2022 03/25/20 Assessment & Plan (03/25/2022 11:55 PM MACHINING AND ASSEMBLY SUPERVISOR): - Hypotension 12/14/2021 10/13/2022 Cor pulmonale, acute 08/20/2021 024 Postural dizziness with presyncope 08/08/2021 10/07/2021 Stage 3a chronic kidney disease 08/08/2021 10/07/2021 Tachycardia 08/08/2021 10/07/2021 Adenomatous polyp of colon 03/21/2018 0 10/13/2022 Right kidney mass 03/15/2018 10/07/2021 Impingement syndrome of left shoulder 03/22/2013 10/07/2021 Prediabetes 06/15/2011 10/07/2021
--- OUTSIDE RECORDS SUMMARY | 2025-03-29 16:19 | XMS_ITS | Encounter Summary ---
Author Organization [facility] Address [address] [place] [address] Phone Care Team Providers Care End User Consultant Name Role Phone Mykel Mccauley DO Unavailable Yaya Elizondo MD Primary Care Provider Micheal Cabral MD Unavailable [phone] Yaya Elizondo MD Primary Care Provider Jeferson Elena MD Primary Care Provider [phone] Artie Henderson MD Unavailable Ana M Renteria MD Unavailable Shiva Barrientos MD Unavailable Aileen Griffin NP Unavailable Parth Dalton MD Unavailable [phone] Encounter Details Date Type Department Care Team (Late st Contact Info) Description 03/08/2022 Documentation [facility] Medicine [facility] [address] [place] [phone] Mykel Mccauley DO [address] [facility] [address] [place] [id number] Social History Tobacco Use Types Packs/Day Years [...] often do you attend chur ch or scientologist services? Never 12/23/2021 Do you belong to any clubs o r organizations such as roman catholic groups, unions, fraternal or athletic groups, or [...] slept in a chcf (including now)? 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 Not on file Not on file documented as of this encounter Functional Status * Fabrice Fall Risk Question Answer Date of Assessment Author History of Falling 25 03/11/2022 8:06 PM CDT Becca Murguia RN Secondary Diagnosis 15 03/11/2022 8:06 PM CD Becca Ng RN Ambulatory Aids 0 03/11/2022 8:06 PM CDT Ki Becca delarosa RN Intravenous Therapy/Heparin/ Saline Lock 20 03/11/2022 8:06 PM CDT Becca Murguia RN Gait/Transferring 10 03/11/2022 8:06 PM CDT Becca Murguia RN Mental Status 0 03/11/2022 8:06 PM CDT Becca Murguia RN Morse Fall Risk Score (Score >= 45 places fall precaution order) 70 03/11/2022 8:06 PM CDT Tito Murguia RN Prior Fall Event (Autopopula peyton from EMR) None found 03/11/2022 8:06 PM Becca Somers RN * Job Scale Question Answer Date of Assessment Author Sensory Perceptions 4 03/11/2022 8:06 PM CD Becca Ng RN Moisture 4 03/11/2022 8:06 PM CDBecca Ng RN Activity 3 03/11/2022 8:06 PM CDT Becca Murguia RN Mobility 3 03/11/2022 8:06 PM CDBecca Ng RN Nutrition 3 03/11/2022 8:06 PM CDT Becca Murguia RN Friction and Shear 3 03/11/2022 8:06 PM CDT Becca Murguia RN Job Scale Score 20 03/11/2022 8:06 PM CDT Becca Murguia RN * Question Answer Date of Assessment Author BP Location Right arm 03/11/2022 7:58 PM CDT Maci Rojas BP Method Automatic 03/11/2022 7:58 PM CDT Maci Rojas MAP (mmHg) 70 03/11/2022 7:58 PM CDT Maci Rojas * Fall Risk Interventions Question Answer Date of Assessment Author All Low Fall Interventions Applied Yes 03/11/2022 8:06 PM CAROT Becca Murguia RN All Moderate Fall Interventions Applied Yes 03/11/2022 8:06 PM CDT Becca Murguia R N All High Fall Risk Interventions Applied Yes 03/11/2022 8:06 PM CAROT Becca Murguia R N All High Risk Interventions EXCEPT: Bed alarm 03/10/2022 10:00 PM Sharon Fuentes RN Additional Interventions Applied Bed/chair alarm 03/10/2022 10:00 PM CAROT Sharon Valentin RN * B.M.A.T. - Bedside Mobility Assessment Tool for Nurses Question Answer Date of Assessment Author Is patient able to participate in the BMAT? Yes 03/11/2022 11:[address] cherelle Garcia RN BMAT Level Level 4 - Green 03/11/2022 11:00 AM CDT Cate Schultz RN * Question Answer Date of Assessment Author 1. Has the patient self-repo rted, presented with clinical signs of, or have a documented history of any of the following within the past 30 days? No 03/09/2022 11:38 PM CAROT Cate Armstrong RN * Question Answer Date of Assessment Author Is the patient being treated today because it is known or suspected that they prepared, started, or tried to end their life? No 03/09/2022 11:38 PM Cate Bernard RN * Question Answer Date of Assessment Author 1. In the past month, have y ou wished you were or that you could go to sleep and not wake up? No 03/09/2022 11:38 PM Cate Bernard RN 2. In the past month, have y ou actually had any thoughts of killing yourself? No 03/09/2022 11:38 PM Cate Bernard RN 6. Have you ever done anythi ng, started to do anything, or prepared to do anything to end your life? No 03/09/2022 11:38 PM Cate Bernard RN * Suicide Risk Level Answer Date of Assessment Author No risk level 03/09/2022 11:38 PM Tito Bernard RN * Self-Injurious Risk Level Answer Date of Assessment Author No risk level 03/09/2022 11:38 PM Tito Bernard RN * Pressure Injury Prevention Question Answer Date of Assessment Author Pressure Ulcer Prevention Interventions Keep skin clean and dry (Sensory Perception/Moisture); Provide adequate nutrition/fluid intake (Nutrition) 03/11/2022 8:06 PM Becca Somers RN 2 Nurse Skin Assessment Gee Michele RN 7:00 AM Cate Bernard RN * AUDIT-C Score Answer Date of Assessment Author 4 03/09/2022 11:43 PM Tito Bernard RN * Alcohol Use Question Answer Date of Assessment Author Q1: [...] Never 03/09/2022 11:43 PM Cate Bernard RN * Integumentary Question Answer Date of Assessment Author Skin Color Appropriate for ethnicity 03/11/2022 9:00 AM Cate Garcia RN Skin Condition/Temp Warm;Dry 03/11/2022 9:00 AM Cate Fonseca RN Skin Integrity Intact 03/11/2022 9:00 AM CDT Cate Stoll RN Skin Turgor Non-tenting 03/09/2022 9:00 PM CDT Cate Armstrong RN Integumentary (WDL) WDL 03/11/2022 8:06 PM CD T Becca Murguia RN Skin Location lower 03/09/2022 9:00 PM CDT Cate Kimball RN * Question Answer Date of Assessment Author Edema Other (Comment) 03/09/2022 9:00 PM CDT Cate Bedoya RN * Question Answer Date of Assessment Author Percent Meal Eaten (%) 100 03/11/2022 6:49 PM CDT Rosa Contreras * Question Answer Date of Assessment Author BP Location Right arm 03/11/2022 7:58 PM CDT Maci Rojas BP Method Automatic 03/11/2022 7:58 PM CDT Maci Rojas * Question Answer Date of Assessment Author Bed In Lowest Position Yes 03/11/2022 10:00 P M CDT Maci Reilly Bed Wheels Locked Yes 03/11/2022 10:00 PM CDT Maci Reilly * Fall Risk Interventions Question Answer Date of Assessment Author All Low Fall Interventions Applied Yes 03/11/2022 8:06 PM CDT Becca Murguia RN All Moderate Fall Interventions Applied Yes 03/11/2022 8:06 PM CDT Becca Murguia R N All High Fall Risk Interventions Applied Yes 03/11/2022 8:06 PM CDT Becca Murguia R N All High Risk Interventions EXCEPT: Bed alarm 03/10/2022 10:00 PM CDT Sharon Valentin RN Additional Interventions Applied Bed/chair alarm 03/10/2022 10:00 PM CDT Sharon Valentin RN * Question Answer Date of Assessment Author Hygiene Gown Changed;Hair washed 03/11/2022 1:00 PM CDT Terrance Verde Oral Care Teeth brushed;with mouthwash;Mouth rinsed;Lip moisturizer applied 03/11/2022 1:00 PM CDT Terrance Verde Hygiene Level of Assistance Independent 03/11/2022 10:00 PM CDT Maci Reilly Toileting: Assistance with Up to bathroom toilet 03/11/2022 10:00 PM CAROT Maci Reilly Toileting: Level of assistance Independent 03/11/2022 10:00 PM CDT Maci Reilly Linens Complete linen change 03/11/2022 1:00 PM CDT Terrance Verde Bath Bathed/showered with chlorhexidine (CHG) 03/11/2022 1:00 PM CDT Terrance Verde * ADL Screening Question Answer Date of Assessment Author Patient's Vision Adequate to Safely Complete Daily Activities Yes 03/09/2022 11:38 PM Cate Bernard RN Patient's Judgement Adequate to Safely Complete Daily Activities Yes 03/09/2022 11:38 PM Cate Bernard RN Patient's Memory Adequate to Safely Complete Daily Activities Yes 03/09/2022 11:38 PM Cate Bernard RN Patient Able to Express Needs/Desires Yes 03/09/2022 11:38 PM Cate Bernard RN Dressing Independent 03/09/2022 11:38 PM Cate Argueta RN Grooming Independent 03/09/2022 11:38 PM Cate Argueta RN Feeding Independent 03/09/2022 11:38 PM Cate Argueta RN Bathing Independent 03/09/2022 11:38 PM Cate Argueta RN Toileting Independent 03/09/2022 11:38 PM Cate Argueta RN In/Out Bed Independent 03/09/2022 11:38 PM Cate Argueta RN Walks in Home Independent 03/09/2022 11:38 PM Cate Bunch RN Weakness of Legs None 03/09/2022 11:38 PM Cate Bernard RN Weakness of Arms/Hands None 03/09/2022 11:38 P M Cate Bernard RN Hearing - Right Ear Functional 03/09/2022 11:38 PM C Cate Choudhary RN Hearing - Left Ear Functional 03/09/2022 11:38 PM CD T Cate Armstrong RN Dominant hand? Right 03/09/2022 11:38 PM CDT Cate Bedoya RN Decline in ADLs in last 2 weeks? No 03/09/2022 11:38 PM CRAOT Cate Armstrong RN * Therapy Consults Question Answer Date of Assessment Author PT Evaluation Needed 2 03/09/2022 11:38 PM CAROT Cate Armstrong RN OT Evaluation Needed 2 03/09/2022 11:38 PM CDT Cate Armstrong RN SUCCESS COACH Evaluation Needed 2 03/09/2022 11:38 PM CAROT Cate Armstrong RN * Assistive Devices Question Answer Date of Assessment Author Assistive Devices/DME None 03/09/2022 11:38 PM CAROT Cate Armstrong RN * Nutrition Question Answer Date of Assessment Author Feeding Level of Assistance Able to feed self 03/11/20 10:15 AM CDT Lakshmi Lechuga Appetite Good 03/11/2022 10:15 AM CDT Lakshmi Salazar documented as of this encounter Mental Status * Question Answer Entry Date Author Level of Consciousness Alert;Awake 9:00 AM CAROT Cate Soto RN Orientation Oriented X4 (person, place, time, situation) 03/11/2022 9:00 AM CAROT Cate Soto RN Other Neuro Symptoms Forgetful 03/11/2022 9:00 AM CDT Cate Soto RN * Question Answer Entry Date Author Neuro (WDL) WDL 03/11/2022 8:06 PM CDT Becca Murguia RN documented in this encounter Plan of Treatment Not on file documented as of this encounter Visit Diagnoses Diagnosis Dyspnea and respiratory abnormalities- Primary documented in this encounter Additional Health Concerns Infection Onset Date Last Indicated Resolved Time COVID: Suspected 03/09/2022 03/09/2022 03/09/2022 3:26 PM CDT COVID19 03/09/2022 03/09/2022 03/23/2022 3:05 AM ALLERGIST/IMMUNOLOGIST COVID: Recovered Comment:Added based on recent COVID infection. 03/23/2022 03/23/2022 06/21/2022 3:[address] COVID: Suspected 07/01/2022 07/01/2022 07/01/2022 5:41 PM ALLERGIST/IMMUNOLOGIST COVID: Suspected 07/03/2022 07/03/2022 07/03/2022 1:37 PM ALLERGIST/IMMUNOLOGIST COVID: Suspected 07/10/2024 07/10/2024 07/10/2024 2:32 PM ALLERGIST/IMMUNOLOGIST Ring Surveillance: C. auris Comment:This flag is [...] documented as of this encounter Care Teams End User Consultant Relationship Specialty Start Date End Date Yaya Elizondo MD 1418 [facility], [address] [address] PCP - General Family Medicine 10/07/21 01/23/23 Yaya Elizondo MD 4921 [facility] [address] [place] [address] PCP - General Family Medicine 01/24/23 02/16/23 Jeferson Elena MD [address] [address] PCP - General Family Medicine 02/17/23 Mykel Mccauley DO 14[address] [facility], [facility] [address] [place] [address] Medical Oncologist/Hematologis t Hematology and Oncology 08/28/21 Micheal Cabral MD [address] [facility] [address] [place] [address] Consulting Physician General Surgery 08/11/22 Artie Henderson MD [address] [place], [place] [id number] Referring Physician Cardiology 02/17/23 Ana M Renteria MD [address] [facility] [address] [place], [place] [id number] Referring Physician Cardiology 11/21/23 [place] [address] [facility] [address] [place] [address] Consulting Physician Endocrinology Diabetes & Metabolism 11/21/23 [place] [address] [facility] [address] [place] [address] Nurse Practitioner Endocrinology Diabetes & Metabolism 11/21/23 Parth Dalton MD [id number] [place] [address] Surgeon Cardiothoracic Surgery 12/07/24 documented as of this encounter
--- OUTSIDE RECORDS SUMMARY | 2025-03-29 16:58 | XMS_ITS | Encounter Summary ---
Author Organization [facility] Address [address] [place] [address] Phone Care Team Providers Care Lavender Farm Worker Name Role Phone Parisa, Mykel Siddiqui DO Unavailable [phone] Yaya Elizondo MD Primary Care Provider Micheal Cabral MD Unavailable [phone] Yaya Elizondo MD Primary Care Provider [phone] Jeferson Elena MD Primary Care Provider Artie Henderson MD Unavailable Ana M Renteria MD Unavailable Shiva Barrientos MD Unavailable Aileen Griffin NP Unavailable Parth Dalton MD Unavailable Encounter Details Date Type Department Care Team (Late st Contact Info) Description 07/02/2022 Telephone [facility] Medicine Cardiology [address] [facility] 8th [place] [address] [place] [address] Artie Henderson MD [address] [facility] [address] [place] [address] Social History Tobacco Use Types [...] How often do you attend chur or mosque services? Never 07/03/2022 Do you belong to any clubs o r organizations such as caodaism groups, unions, fraternal or athletic groups, or [...] in a senior care (including now)? 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 Not on file Not on file documented as of this encounter Functional Status * Question Answer Date of Assessment Author MAP (mmHg) 80 07/05/2022 11:32 AM CENTRAL SUPPLY SUPERVISOR Jennifer Parrish RN * Question Answer Date [...] RN Dressing Independent 07/02/2022 8:00 PM Kartik Posadas RN Grooming Independent 07/02/2022 8:00 PM Kartik Posadas RN Feeding Independent 07/02/2022 8:00 PM Kartik Posadas RN Bathing Independent 07/02/2022 8:00 PM Kartik Posadas RN Toileting Independent 07/02/2022 8:00 PM Kartik Posadas RN In/Out Bed Independent 07/02/2022 8:00 PM Kartik Posadas RN Walks in Home Independent 07/02/2022 8:00 PM Kartik Rosenbaum, FELICITA Weakness of Legs None 07/02/2022 8:00 PM CENTRAL SUPPLY SUPERVISOR Kartik Triplett RN Weakness of Arms/Hands None 07/02/2022 8:00 PM Kartik Philip RN Hearing - Right Ear Functional 07/02/2022 8:00 PM CS Kartik Perales RN Hearing - Left Ear Functional 07/02/2022 8:00 PM Kartik Philip RN Dominant hand? Right 07/02/2022 8:00 PM Kartik Fregoso RN Decline in ADLs in last 2 weeks? No 07/02/2022 8:00 PM Kartik Philip RN * Therapy Consults Question Answer Date of Assessment Author PT Evaluation Needed 2 07/02/2022 8:00 PM Kartik Hawthorne RN OT Evaluation Needed 2 07/02/2022 8:00 PM Kartik Hawthorne RN INSURANCE CLAIM REPRESENTATIVE Evaluation Needed 2 07/02/2022 8:00 PM Kartik Philip, FELICITA * Assistive Devices Question Answer Date of Assessment Author Assistive Devices/DME Eyeglasses 07/02/2022 8:00 PM Kartik Philip, FELICITA * Question Answer Date of Assessment [...] Rojas RN Appetite Good 07/03/2022 8:00 AM CENTRAL SUPPLY SUPERVISOR Estefanía Dash RN documented as of this [...] RN Overall CAM-ICU Negative 07/05/2022 7:17 AM CENTRAL SUPPLY SUPERVISOR Jennifer Ledesma RN documented in this encounter Plan of Treatment Not on file documented as of this encounter Visit Diagnoses Not on filedocumented in this encounter Additional Health Concerns Infection Onset Date Last Indicated Resolved Time COVID: Suspected 07/03/2022 07/03/2022 07/03/2022 1:37 PM CENTRAL SUPPLY SUPERVISOR COVID: Suspected 07/10/2024 07/10/2024 07/10/2024 2:32 PM CENTRAL SUPPLY SUPERVISOR Ring Surveillance: C. julia Comment:This flag is used to identify patient [...] documented as of this encounter Care Teams Lavender Farm Worker Relationship Specialty Start Date End Date Yaya Elizondo MD 1418 [facility], [address] [place] [address] PCP - General Family Medicine 10/07/21 01/23/23 Yaya Elizondo MD [address] [place] [address] PCP - General Family Medicine 01/24/23 02/16/23 Jeferson Elena MD [address] [place] [address] PCP - General Family Medicine 02/17/23 Mykel Mccauley DO [address] [facility], [address] [place] [address] Medical Oncologist/Hematologis t Hematology and Oncology 08/28/21 Micheal Cabral MD [address] [place] [address] Consulting Physician General Surgery 08/11/22 Artie Henderson MD [address] [place], [place] [id number] Referring Physician Cardiology 02/17/23 Ana M Renteria MD [address] [place], [place] [address] Referring Physician Cardiology 11/21/23 [place] [address] [address] [place] [address] Consulting Physician Endocrinology Diabetes & Metabolism 11/21/23 [place] [address] [facility] [address] [place] [address] Nurse Practitioner Endocrinology Diabetes & Metabolism 11/21/23 Parth Dalton MD [id number] [place] [address] Surgeon Cardiothoracic Surgery 12/07/24 documented as of this encounter
--- OUTSIDE RECORDS SUMMARY | 2025-03-29 16:59 | XMS_ITS | Encounter Summary ---
Author Organization [facility] Healthcare Address [address] [place] [address] Care Team Providers Care Service Porter Name Role Phone Mykel Mccauley DO Unavailable Yaya Elizondo MD Primary Care Provider [phone] Micheal Cabral MD Unavailable [phone] Yaya Elizondo MD Primary Care Provider Jeferson Elena MD Primary Care Provider Artie Henderson MD Unavailable Ana M Renteria MD Unavailable [phone] Shiva Barrientos MD Unavailable Aileen Griffin NP Unavailable Parth Dalton MD Unavailable Encounter Details Date Type Department Care Team (Late st Contact Info) Description 04/05/2022 Documentation [facility] Social Work [address] [place] [address] Alivia Pham MSW Social History Tobacco Use [...] often do you attend chur ch or sikhism services? Never 03/30/2022 Do you belong to any clubs o r organizations such as sikhism groups, unions, fraternal or athletic groups, or [...] slept in a prison (including now)? 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 Not on file Not on file documented as of this encounter Functional Status * Question Answer Date of Assessment Author BP Location Right arm 04/08/2022 9:15 PM MAGNETIC HEALER Wendy Lockhart RN BP Method Automatic 04/08/2022 9:15 PM MAGNETIC HEALER Wendy Lockhart RN MAP (mmHg) 87 04/08/2022 9:15 PM MAGNETIC HEALER Wendy Lockhart RN * Avina Fall Risk Question Answer Date of Assessment Author History of Falling 25 04/08/2022 9:15 PM Wendy Sauer RN Secondary Diagnosis 15 04/08/2022 9:15 PM CS Wendy Andrade RN Ambulatory Aids 0 04/08/2022 9:15 PM Wendy Coronado RN Intravenous Therapy/Heparin/Saline Lock 20 04/08/2022 9:15 PM Wendy Sauer RN Gait/Transferring 10 04/08/2022 9:15 PM Wendy Sauer RN Mental Status 0 04/08/2022 9:15 PM MAGNETIC HEALER Wendy Abrams RN Avina Fall Risk Score (Score >= 45 places fall precaution order) 70 04/08/2022 9:15 PM Wendy Sauer RN Prior Fall Event (Autopopulated from EMR) None found 04/08/2022 9:15 PM MAGNETIC HEALER Ibis Whittaker RN * Job Scale Question Answer Date of Assessment Author Sensory Perceptions 3 04/08/2022 9:15 PM CS Wendy Andrade, FELICITA Moisture 4 04/08/2022 9:15 PM MAGNETIC HEALER Wendy Lockhart RN Activity 2 04/08/2022 9:15 PM MAGNETIC HEALER Wendy Lockhart RN Mobility 3 04/08/2022 9:15 PM Wendy Atkins RN Nutrition 3 04/08/2022 9:15 PM MAGNETIC HEALER Wendy Lockhart RN Friction and Shear 3 [...] in BMAT Medically contraindicated 04/05/2022 8:41 PM MAGNETIC HEALER Deb Hooper RN BMAT Level Level 3 - Yellow 04/08/2022 7:00 AM Kendra Gasca RN Level 2 Equipment Use total lift for patient unable to weight-bear on at least one leg 04/06/2022 7:30 AM Patricia Dennison RN Level 3 Equipment Use assistive device such as cane/walker 04/08/2022 7:00 AM MAGNETIC HEALER Kendra Javier, FELICITA * Pressure Injury Prevention [...] Location lower abdomen, coccyx 04/08/2022 9:00 AM MAGNETIC HEALER Kendra Javier, FELICITA * Question Answer Date of Assessment Author Special Mattress Rotation alternating pressure relief 04/08/2022 7:00 AM Kendra Gasca, FELICITA * Question Answer Date of Assessment Author BP Location Right arm 04/08/2022 9:15 PM MAGNETIC HEALER Wendy Lockhart RN BP Method Automatic 04/08/2022 9:15 PM MAGNETIC HEALER Wendy Lockhart, FELICITA * Question Answer Date [...] the bedside 04/08/2022 9:15 PM Wendy Sauer, FLEICITA * Question Answer Date of Assessment Author [...] Meal Eaten (%) 100 04/08/2022 9:00 AM MAGNETIC HEALER Sunny Mota RN Feeding Level of Assistance Able to feed self 04/08/2022 9:15 PM Wendy Sauer RN Appetite Good 04/08/2022 9:15 PM MAGNETIC HEALER Wendy Lockhart RN documented as of this encounter Mental Status * Question Answer Entry Date Author Level of Consciousness Alert;Awake 04/08/2022 9:15 PM Wendy Sauer RN * Question Answer Entry Date Author Orientation Oriented to person;Oriented to place 04/08/2022 9:15 PM Wendy Sauer RN Neuro (WDL) X 04/08/2022 9:15 PM Wendy Sauer RN Other Neuro Symptoms Forgetful 04/07/2022 9:00 AM MAGNETIC HEALER Patricia Aguirre RN documented in this encounter Miscellaneous Notes * Plan of Care - Alivia Pham MSW - 04/05/2022 8:57 AM CST Patient was transferred [place] [address] [place] [place] [address]. SW notified. Problem: Ensure acute medical needs are met and that patient has a safe discharge plan. Goal: Secure a facility that patient/family are agreeable with and ensure patient has continuum of care. Discharge Plan: 7800 SICU SW was following for SDOH. Patient screened by [facility] for Medicaid application assistance. Discharge status TBD. FARRUKH [place] ETIC HEALER documented in this encounter Plan of Treatment Not on file documented as of this encounter Visit Diagnoses Not on filedocumented in this encounter Additional Health Concerns Infection Onset Date Last Indicated Resolved Time COVID: Recovered Comment:Added based on recent COVID infection. 03/23/2022 03/23/2022 06/21/2022 3:[address] COVID: Suspected 07/01/2022 07/01/2022 07/01/2022 5:41 PM MAGNETIC HEALER COVID: Suspected 07/03/2022 07/03/2022 07/03/2022 1:37 PM MAGNETIC HEALER COVID: Suspected 07/10/2024 07/10/2024 07/10/2024 2:32 PM MAGNETIC HEALER Ring Surveillance: C. auris Comment:This flag is [...] documented as of this encounter Care Teams Service Porter Relationship Specialty Start Date End Date Yaya Elizondo MD [address] [facility] DIV IM MEDICAL ONCOLOGY, [address] [place] [address] PCP - General Family Medicine 10/07/21 01/23/23 Yaya Elizondo MD [address] [facility] [address] [place] [address] PCP - General Family Medicine 01/24/23 02/16/23 Jeferson Elena MD [address] [facility] [address] [place] [address] PCP - General Family Medicine 02/17/23 Mykel Mccauley DO [address] [facility] MEDICAL ONCOLOGY, [address] [place], [place] [address] Medical Oncologist/Hematologis t Hematology and Oncology 08/28/21 Micheal Cabral MD [address] [facility] [address] [place] [address] Consulting Physician General Surgery 08/11/22 Artie Henderson MD [address] [facility] [address] [place] [address] Referring Physician Cardiology 02/17/23 Ana M Renteria MD [address] [facility] [address] [place] [address] Referring Physician Cardiology 11/21/23 [place] [address] [address] Consulting Physician Endocrinology Diabetes & Metabolism 11/21/23 [place] [address] [address] Nurse Practitioner Endocrinology Diabetes & Metabolism 11/21/23 Parth Dalton MD [address] [facility] [address] [place] [address] Surgeon Cardiothoracic Surgery 12/07/24 documented as of this encounter
--- OUTSIDE RECORDS SUMMARY | 2025-03-29 17:00 | XMS_ITS | Encounter Summary ---
Author Organization [facility] Healthcare Address [address] [place] [address] Care Team Providers Care Digital Pre Press Operator Name Role Phone Mykel Mccauley DO Unavailable [phone] Micheal Cabral MD Unavailable [phone] Jeferson Elena MD Primary Care Provider Artie Henderson MD Unavailable [phone] Ana M Renteria MD Unavailable [phone] Shiva Barrientos MD Unavailable Aileen Griffin NP Unavailable Parth Dalton MD Unavailable Encounter Details Date Type Department Care Team (Late st Contact Info) Description 03/29/2025 Emergency [facility] Emergency Department [address] [place] [address] Social History Tobacco Use Types Packs/Day Years [...] often do you attend chur ch or faith services? Never 08/24/2022 Do you belong to any clubs o r organizations such as taoist groups, unions, fraternal or athletic groups, or [...] place to sleep or slept in a detention (including now)? No 08/24/2022 PHQ-9 Answer Date [...] often do you attend chur ch or faith services? Never 01/06/2025 Do you belong to any clubs o r organizations such as taoist groups, unions, fraternal or athletic groups, or [...] any time in the past 12 m [facility], were you homeless or living in a detention (including now)? No 01/06/[address] 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 file Not on file Not on file documented as of this encounter Plan of Treatment Not on file documented as of this encounter Visit Diagnoses Not on filedocumented in this encounter Care Teams Digital Pre Press Operator Relationship Specialty Start Date End Date Jeferson Elena MD [address] [facility] [address] [place] [address] PCP - General Family Medicine 02/17/23 Mykel Mccauley DO [address] [place] [address] MEDICAL ONCOLOGY, [facility] [address] [place] [address] Medical Oncologist/Hematologis t Hematology and Oncology 08/28/21 Micheal Cabral MD [address] [facility] [address] [place] [address] Consulting Physician General Surgery 08/11/22 Artie Henderson MD [address] [facility] [address] [place], [place] [address] Referring Physician Cardiology 02/17/23 Ana M Renteria MD [address] [facility] [address] [place] [address] Referring Physician Cardiology 11/21/23 [place] [address] [facility] [address] [place] [address] Consulting Physician Endocrinology Diabetes & Metabolism 11/21/23 [place] [address] [facility] [address] [place] [address] Nurse Practitioner Endocrinology Diabetes & Metabolism 11/21/23 Parth Dalton MD [address] [facility] [address] [place] [address] Surgeon Cardiothoracic Surgery 12/07/24 documented as of this encounter
--- OUTSIDE RECORDS SUMMARY | 2025-03-29 17:02 | XMS_ITS | Clinical Summary ---
Author Organization [facility] Address [address] [place] [address] Care Team Providers Care Assistant Housekeeping Manager Name Role Phone Mykel Mccauley DO Unavailable Micheal Cabral MD Unavailable [phone] Jeferson Elena MD Primary Care Provider [...] Assessment & Plan (01/19/2025 8:49 AM CDT): ENGINEERING TEAM SUPERVISOR saw patient on 01/09 at bedside 01/10 [...] CI 2.5 w chest closed -ASA/statin/zetia/spirolactone daily -CO SUPERVISOR [employer]APE - 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 Normal [...] 11/19/2024 Assessment & Plan (03/25/2025 3:22 PM LITHOPLATE MAKER): This has been in place for 45 [...] 11/19/2024 Assessment & Plan (03/25/2025 3:28 PM LITHOPLATE MAKER): This has not improved since his CABG [...] 03/19/2024 Assessment & Plan (03/19/2024 11:05 AM LITHOPLATE MAKER): Patient is interested in the steroid injections. Will refer him back to Orthopedics to discuss steroid injections for both of his knees Hand arthritis 03/19/2024 Assessment & Plan (03/19/2024 11:06 AM LITHOPLATE MAKER): Will obtain new x-rays today. Referral to ortho hand in [place]. I told him alternatively there would be Dr. Du at [facility]. Encounter for Medicare annual wellness exam [...] daily Assessment & Plan (07/13/2024 10:40 AM LITHOPLATE MAKER): Chronic problem. 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 In case of any extreme weakness, abdominal pain, diarrhea or dizziness, it is recommended for you to call an ambulance and proceed to the nearest emergency room. Assessment & Plan (07/05/2023 2:53 PM LITHOPLATE MAKER): Chronic problem. Currently taking prednisone 5mg twice [...] room. Assessment & Plan (05/19/2023 12:49 PM LITHOPLATE MAKER): Patient continuing his Prednisone and set to follow up with Endo in June. Assessment & Plan (11/18/2022 3:01 PM CDT): Chronic problem. Discussed tapering prednisone dose from 15mg total/day down to 5mg daily. Reserving 10-15mg for sick days. Will call if any difficulties with tapering. Reviewed red flags. Will check TSH, T3, T4 today. Verified that he uses [employer]. Aware to check results/results letter in [employer]. Will contact by phone if needed. 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 In [...] 07/04/2022 Assessment & Plan (07/05/2022 7:58 PM LITHOPLATE MAKER): On 12/2021 started high dose steroid due [...] tapering. Assessment & Plan (07/04/2022 4:17 PM LITHOPLATE MAKER): On 12/2021 started high dose steroid due [...] Cardiology Assessment & Plan (05/19/2023 12:42 PM LITHOPLATE MAKER): Patient continues to follow with Cardiology. Continues [...] changes. Assessment & Plan (07/05/2022 8:13 PM LITHOPLATE MAKER): TTE 03/2022 with LV dilation with EF [...] 09/09/2022) Assessment & Plan (07/04/2022 4:23 PM LITHOPLATE MAKER): TTE 03/2022 with LV dilation with EF [...] cost Assessment & Plan (07/03/2022 5:05 PM LITHOPLATE MAKER): TTE 03/2022 with LV dilation with EF [...] cost Assessment & Plan (04/05/2022 4:32 PM LITHOPLATE MAKER): Heart Failure with Reduced Ejection Fraction: EF [...] currently Assessment & Plan (04/04/2022 3:23 PM LITHOPLATE MAKER): Heart Failure with Reduced Ejection Fraction: EF 25% (TTE 03/2022), profile A, NYHA II, - Diuretic: None currently - Beta Jihan: Metoprolol tartrate 37.5 mg BID, will consolidate to XL prior to D/C - BRENTON/ARB/ARNI: On Entresto at home, will resume as tolerated - Device: No device currently Failure to thrive in adult 03/25/2022 Assessment & Plan (04/05/2022 4:31 PM LITHOPLATE MAKER): - Patient presenting with decreased PO intake, noncompliance medications, reported wt loss - RD consult, currently on TF via DHT - Swallow evaluation to remove DHT and begin oral nutrition Assessment & Plan (04/04/2022 3:20 PM LITHOPLATE MAKER): - Patient presenting with decreased PO intake, noncompliance medications, reported wt loss - RD consult, currently on TF via DHT Falls 03/25/2022 Assessment & Plan (04/05/2022 4:31 PM LITHOPLATE MAKER): - Patient lives alone with reportedly intermittent falls at home; last prior to admission without reported head trauma - Head CT unremarkable - Fall precautions, empiric coverage for Wernicke per above Assessment & Plan (04/04/2022 3:20 PM LITHOPLATE MAKER): - Patient lives alone with reportedly intermittent falls at home; last prior to admission without reported head trauma - Head CT unremarkable - Fall precautions, empiric coverage for Wernicke per above - PT/OT High risk medication use 03/25/2022 Atrial fibrillation 12/01/2021 Overview (12/01/2021): Added automatically from request for surgery [id number] Assessment & Plan (01/19/2025 8:45 AM CDT): [...] 01/19 Assessment & Plan (07/05/2022 8:09 PM LITHOPLATE MAKER): EKG on admission w/ AFL - eliquis - metop Assessment & Plan (07/04/2022 4:24 PM LITHOPLATE MAKER): EKG on admission w/ AFL - eliquis - metop Assessment & Plan (07/02/2022 9:24 PM LITHOPLATE MAKER): EKG on admission w/ AFL - eliquis - metop Assessment & Plan (04/05/2022 4:30 PM LITHOPLATE MAKER): Presenting with Afib with HR currently at goal < 110, episode of hypotension 03/29 with RVR requiring ICU transfer - On metoprolol tartrate 37.5 mg BID, rate controlled - Continue telemetry for now (currently rate controlled) - Theraputic lovenox Assessment & Plan (04/04/2022 3:18 PM LITHOPLATE MAKER): Presenting with Afib with HR currently at goal < 110, episode of hypotension 03/29 with RVR requiring ICU transfer - On metoprolol tartrate 37.5 mg BID, rate controlled - Continue telemetry for now - Theraputic lovenox Chronic HFrEF (heart failure with reduced ejection fraction) 10/22/2021 Assessment & Plan (03/25/2025 3:27 PM LITHOPLATE MAKER): Continue ASA, Eliquis, Statin and Zetia Continue [...] function Assessment & Plan (03/28/2022 2:53 PM LITHOPLATE MAKER): - Recent TTE 2wks ago with EF [...] daily. Assessment & Plan (07/05/2022 8:06 PM LITHOPLATE MAKER): Statin Assessment & Plan (07/04/2022 4:23 PM LITHOPLATE MAKER): Statin Assessment & Plan (07/03/2022 5:08 PM LITHOPLATE MAKER): Statin Assessment & Plan (04/05/2022 4:32 PM LITHOPLATE MAKER): - Cont statin once able to tolerate PO Assessment & Plan (03/25/2022 11:54 PM LITHOPLATE MAKER): - Cont statin Hypertension 08/28/2021 Assessment & [...] KK Assessment & Plan (04/05/2022 4:32 PM LITHOPLATE MAKER): - Submassive PE diagnosed in 07/2021 - CT PE negative here (in setting of apixaban noncompliance) - Lovenox Assessment & Plan (04/04/2022 3:21 PM LITHOPLATE MAKER): - Submassive PE diagnosed in 07/2021 - CT PE negative here (in setting of apixaban noncompliance) - Lovenox Clear cell carcinoma of kidney, 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 Mccauley. Bee 2018. S/p ablation and radical nephrectomy. Completed 5 cycles of pembrolizumab -12/2021. Hx of immunotherapy neurotoxicity and prior treated with course of steroids and IVIG (12/2021, 03/2022) Assessment & Plan (07/04/2022 4:23 PM LITHOPLATE MAKER): Follows with Dr. Mccauley. Bee 2018. S/p ablation and radical nephrectomy. Completed 5 cycles of pembrolizumab -12/2021. 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 Mccauley. Bee 2018. S/p ablation and radical nephrectomy. Completed 5 cycles of pembrolizumab . 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 Mccauley. Dx 2018. S/p ablation and radical nephrectomy. Completed 5 cycles of pembrolizumab 3-12/2021. 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 - Continues on IVIG and solumedrol per oncology Assessment & Plan (04/04/2022 3:20 PM LITHOPLATE MAKER): Follows with Dr. Mccauley. Dx 2018. S/p ablation and radical nephrectomy. Completed 5 cycles of pembrolizumab 3-12/2021. 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 - Continues on IVIG and solumedrol per oncology Chronic left shoulder pain 02/18/2016 Acute renal failure superimposed on chronic kidn ey disease Assessment & Plan (07/05/2022 8:12 PM LITHOPLATE MAKER): Cr 1.8 (baseline 1) - euvolemic on exam without recent GI losses or poor PO intake - IVF were hold - Initially aldactone, entresto and lasix were hold. - Cr improve to 1.37. - Restarted entresto and lower dose of lasix (from 40 mg daily to 20 mg daily) Assessment & Plan (07/04/2022 4:25 PM LITHOPLATE MAKER): Cr 1.8 (baseline 1) - euvolemic on exam without recent GI losses or poor PO intake - Cr improve to 1.47. - would not give fluids - Hold aldactone, entresto and lasix Assessment & Plan (07/03/2022 5:08 PM LITHOPLATE MAKER): Cr 1.8 (baseline 1) - euvolemic on exam without recent GI losses or poor PO intake - improving without intervention - would not give fluids - Hold aldactone, entresto and lasix Assessment & Plan (04/05/2022 4:30 PM LITHOPLATE MAKER): - Presenting with Cr 1.81 up from baseline ~1.3 in setting of decreased PO intake, now resolved with supportive care - Avoid nephrotoxins, renal-dose meds Assessment & Plan (04/04/2022 3:18 PM LITHOPLATE MAKER): - Presenting with Cr 1.81 up from baseline ~1.3 in setting of decreased PO intake, now resolved with supportive care - Avoid nephrotoxins, renal-dose meds Drug reaction Neurotoxicity Assessment & Plan (07/05/2022 7:58 PM LITHOPLATE MAKER): 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, high dose steroids, now on pred 10 daily - On the ED receive hydrocortisone 59 ng x 3 - Steroid as mention - should not need PJP ppx on this dose - start PPI ppx Assessment & Plan (07/04/2022 4:19 PM LITHOPLATE MAKER): 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, high dose steroids, now on pred 10 daily - On the ED receive hydrocortisone 59 ng x 3 - Steroid as mention - should not need PJP ppx on this dose - start PPI ppx Assessment & Plan (07/03/2022 4:51 PM LITHOPLATE MAKER): 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 Assessment & Plan (07/04/2022 4:23 PM LITHOPLATE MAKER): SBP has been on the low 100s [...] lasix Assessment & Plan (07/03/2022 5:03 PM LITHOPLATE MAKER): SBP has been on the low 100s [...] 12/26/2024 Assessment & Plan (07/05/2022 7:54 PM LITHOPLATE MAKER): home metal #5 - does not use trach collar Assessment & Plan (07/04/2022 4:17 PM LITHOPLATE MAKER): home metal #5 - does not use trach collar Assessment & Plan (07/02/2022 10:20 PM LITHOPLATE MAKER): home metal #5 - does not use trach collar Shortness of breath 07/01/2022 10/14/19 23 Assessment & Plan (07/05/2022 8:13 PM LITHOPLATE MAKER): PHx of HFrEF (EF 20%), PE on [...] No wheezing on exam. [facility]media[facility] indeterminate. May have had ischemic eval afterwards but records not available. Cardiac MRI 06/2022 w/ Dilated cardiomyopathy with markedly reduced right and left ventricular ejection fraction. No evidence of myocarditis Plan: - empiric coverage for PNM: CTX, azithro for 3 days - BCx NGTD - Resolve SOB Assessment & Plan (07/04/2022 4:19 PM LITHOPLATE MAKER): PHx of HFrEF (EF 20%), PE on [...] No wheezing on exam. Stress test [facility] (media) indeterminate. May have had [...] 09/09/2022) Assessment & Plan (07/03/2022 4:48 PM LITHOPLATE MAKER): PHx of HFrEF (EF 20%), PE on [...] No wheezing on exam. Stress test [facility] (media) indeterminate. May have had [...] (06/03/2022): Added automatically from request for surgery [id number] Severe malnutrition 03/26/2022 11/21/19 24 Assessment & Plan (04/05/2022 4:32 PM LITHOPLATE MAKER): RD following, continue TF - ENGINEERING TEAM SUPERVISOR to follow for continued swallow eval given risk of aspiration Assessment & Plan (04/04/2022 3:21 PM LITHOPLATE MAKER): RD following, continue TF - ENGINEERING TEAM SUPERVISOR to follow for continued swallow eval given risk of aspiration Hypercalcemia 03/25/2022 03/26/2022 Assessment & Plan (03/25/2022 11:54 PM LITHOPLATE MAKER): - Presume secondary to dehydration - monitor s/p IVF SIRS (systemic inflammatory response syndrome) 03/25/2022 12/07/2024 Shortness of breath 03/09/2022 03/25/20 22 Assessment & Plan (03/25/2022 11:55 PM LITHOPLATE MAKER): - Hypotension 12/14/2021 10/13/2022 Cor pulmonale, acute 08/20/2021 024 Postural dizziness with presyncope 08/08/2021 10/07/2021 Stage 3a chronic kidney disease 08/08/2021 10/07/2021 Tachycardia 08/08/2021 10/07/2021 Adenomatous polyp of colon 03/21/2018 0 10/13/2022 Right kidney mass 03/15/2018 10/07/2021 Impingement syndrome of left shoulder 03/22/2013 10/07/2021 Prediabetes 06/15/2011 10/07/2021 Encounters Date Type Department Care Team Description 03/29/2025 Emergency [facility] Emergency Department [address] [place] [address] 03/25/2025 11:00 AM LITHOPLATE MAKER Office Visit [facility] Medical Group Pulmonary at [address] [place] [address] Shwetha Lowe, NET MOBILE DEVELOPER Dyspnea on minimal exertion (Primary Dx); Chronic HFrEF (heart failure with reduced ejection fraction) (HCC); Tracheostomy dependent (HCC) 03/18/2025 Telephone [facility] Otolaryngology [facility] [place] [address] Natalie Cast MS 03/12/2025 10:30 AM CDT Office Visit [facility] Cardiology [facility] Floor 1, [address] [place] [address] Artie Henderson MD Tracheal stenosis (Primary Dx); CAD, multiple vessel; Longstanding persistent atrial fibrillation (HCC) 03/12/2025 Telephone [facility] Cardiology [facility] Floor 1, [address] [place] [address] Artie Henderson MD 03/11/2025 10:15 AM CDT Office Visit [facility] Medical Group Primary Care at [address] [phone] Jeferson Elena MD Primary hypertension (Primary Dx); Screening for colon cancer; Mixed hyperlipidemia; Heart failure with reduced ejection fraction; History of pulmonary embolism; Restrictive lung disease 02/25/2025 Telephone [facility] Medical [facility] Primary Care at [address] [phone] Jeferson Elena MD Medical Question/Miscellaneo us 02/23/2025 Telephone [facility] [address] [place] [address] Marci Prasad NP 02/21/2025 9:31 AM CDT - 02/21/2025 11:59 PM CDT Hospital Encounter [facility] Radiology [facility] [address] [place] [address] Follow-up examination following surgery Discharge Disposition: Discharge to home or self care 02/21/2025 9:30 AM CDT Office Visit [facility] Cardiothoracic Surgery [address] [place] [address] for [facility] 8th Floor [address] Room [address] [place] [phone] Kotkar, Parth D., MD Longstanding persistent atrial fibrillation (HCC) (Primary Dx) 02/21/2025 Orders Only [facility] Cardiothoracic Surgery [address] [facility] 8th Floor [address] Room [address] [place], [place] [phone] Parth Dalton MD Follow-up examination following surgery (Primary Dx) 02/13/2025 Telephone [facility] Cardiothoracic Surgery [address] [facility] 8th Floor [address] Room [address] [place], [place] [phone] Parth Dalton MD Symptom Based Call 02/13/2025 Telephone [facility] Medical Group Primary Care at [address] [phone] Jeferson Elena MD Medical Question/Miscellaneo us 02/11/2025 Telephone [facility] Medical [facility] Primary Care at [address] [phone] Jeferson Elena MD Symptom Based Call 02/11/2025 Telephone [facility] Medical [facility] Primary Care at [address] [phone] Jeferson Elena MD Ortho vitals 02/08/2025 10:00 AM CDT Telemedicine [facility] Medical [facility] Primary Care at [address] [phone] Cheirse Butts NP History of pulmonary embolism (Primary Dx); ASCVD (arteriosclerotic cardiovascular disease); Primary hypertension; Mixed hyperlipidemia; Hospital discharge follow-up 02/08/2025 Telephone [facility] Cardiothoracic Surgery [address] [place] [address] 8th Floor [address] Room [address] [place] [phone] Rosi Jha NP 02/06/2025 Telephone [facility] Medical Group Primary Care at [address] [phone] Jeferson Elena MD TRAE Questions 02/04/2025 Orders Only [facility] Medical Group Primary Care at [address] [phone] Yana Ramirez MD 01/31/2025 Orders Only [facility] Medical Group Primary Care at [address] [phone] Yana Ramriez MD 01/31/2025 Telephone [facility] Medical Group Primary Care at [address] [phone] Jeferson Elena MD Medical Question/Miscellaneo us 01/22/2025 Telephone [facility] Medicine [facility] Oncology [address] [place] [address] [address] [place] [address] Jayshree Khan 01/18/2025 1:24 PM CDT - 01/18/2025 11:59 PM CDT Hospital Encounter [facility] Radiology [address] [place] [address] Discharge Disposition: Discharge to home or self care 01/10/2025 3:30 PM CDT - 01/10/2025 11:59 PM CDT Hospital Encounter [facility] Radiology [address] [place] [address] Discharge Disposition: Discharge to home or self care 01/02/2025 Telephone [facility] Medicine Otolaryngology [address] [place] [address] Natalie Cast MS 12/28/2024 7:55 AM CDT Ancillary Procedure [facility] Operating Room [address] [place] [address] 12/28/2024 7:00 AM CDT - 12/28/2024 3:55 PM CDT Surgery [facility] Operating Room [address] [place] [address] Parth Dalton MD CORONARY ARTERY BYPASS GRAFT WITH PUMP, ALEX CLIP WITH 45MM ATRICLIP 12/28/2024 6:56 AM CDT Anesthesia Event [facility] Operating Room [address] [place] [address] Simon Roberts MD Shah, Eve Arana MD 12/27/2024 9:10 AM CDT Ancillary Procedure [facility] IP 1 [facility] [address] [place] [address] 12/27/2024 9:05 AM CDT Ancillary Procedure [facility] Medicine Vascular Lab IP 1 [facility] [address] [place] [address] 12/26/2024 4:29 PM CDT - 01/19/2025 3:44 PM CDT Hospital Encounter [facility] [address] [place] [address] Parth Dalton MD CAD, multiple vessel (Primary [...] HERNIA REPAIR 08/23/2001 Right Robotic eTEP [facility] FRACTURE SURGERY 05/16/1976 - 05/15/1977 CARPAL TUNNEL RELEASE 03/16/2013 Right FEMUR FRACTURE SURGERY Right CARDIAC CATHETERIZATION 08/29/2024 N/A Procedure: PCI LINTER OPERATOR ERVIN REVASCULARIZATION - FIRST VESSEL C9607 - [id number]; Surgeon: Ana M Renteria MD; Location: [facility] CARDIAC SPINNING LATHE OPERATOR; Service: Cardiovascular; Laterality: N/A; Hold on 07/24 instructed to hold eliquis 48hrs prior; PCI LINTER OPERATOR LAD Medical devices from this surgery are in the Medical Devices section. CARDIAC CATHETERIZATION 11/15/2024 N/A Procedure: PCI LINTER OPERATOR ERVIN REVASCULARIZATION - FIRST VESSEL C9607 - [id number]; Surgeon: Ana M Renteria MD; Location: [facility] CARDIAC SPINNING LATHE OPERATOR; Service: Cardiovascular; Laterality: N/A; instructed to hold [...] 06/03/2022 Added automatically from request for surgery [id number] Thrombocytopenia 12/30/2024 Family History Medical History Relation [...] Neg Hx Relation Name Status Comments Brother eHctor Alive Father Hector Maternal Grandfather Maternal Grandmother [...] any clubs o r organizations such as anabaptist groups, unions, fraternal or athletic groups, or [...] place to sleep or slept in a skilled nursing (including now)? No 08/24/2022 PHQ-9 Answer Date [...] any clubs o r organizations such as anabaptist groups, unions, fraternal or athletic groups, or [...] any time in the past 12 m [facility], were you homeless or living in a skilled nursing (including now)? 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 Not on file Not on file Not on file Last Filed Vital Signs Vital Sign Reading Time Taken Comments Blood Pressure 116/80 03/25/2025 10:44 AM LITHOPLATE MAKER Pulse 86 03/25/2025 10:44 AM LITHOPLATE MAKER Temperature 36.3 C (97.4 F) 03/25/2025 10:44 AM LITHOPLATE MAKER Respiratory Rate 24 03/25/2025 10:44 AM LITHOPLATE MAKER Oxygen Saturation 97% 03/25/2025 10:44 AM LITHOPLATE MAKER Inhaled Oxygen Concentration - - Weight 87.3 kg (192 lb 8 oz) 03/25/2025 10:44 AM LITHOPLATE MAKER Height 177.8 cm (5' 10) 03/25/2025 10:44 AM LITHOPLATE MAKER Body Mass Index 27.62 03/25/2025 10:44 AM LITHOPLATE MAKER Plan of Treatment Health Maintenance Due Date [...] history exists Medical Devices Implanted Type Area Color Specialist Device Identifier Shelf Expiration Date Model / Serial / Lot Atricure Device Left Atrial Appendage Malleable Shaft 180 Degree Rotation White Atriclip Flex V 45mm Flexv45 - S0 - [id number] Implanted:Qty: 1 on 12/28/2024 by Parth Dalton MD at [facility] Clip Left: Atrial Appendage Atricure 08/15/2027 [id number] / 0 / [id number] [employer] Angio-Seal Vip 6fr Closere Device [id number] - [id number] - [id number] Implanted:Qty: 1 on 10/05/2023 by James Limon MD at [facility] Collagen Left: Groin [employer] 06/15/2024 [id number] / [id number] / [id number] [employer] Angio-Seal Vip 6fr Closere Device [id number] - [id number] - [id number] Implanted:Qty: 1 on 10/05/2023 by James Limon MD at [facility] Collagen Right: Groin [employer] 06/15/2024 193655 / [id number] / [id number] [employer] Angio-Seal Vip 6fr Closere Device [id number] - [id number] - [id number] Implanted:Qty: 1 on 11/23/2023 by Ana M Renteria MD at [facility] Collagen Left: Common Femoral Artery [employer] 06/06/2024 [id number] / [id number] / [id number] [employer] Angio-Seal Vip 6fr Closere Device [id number] - [id number] - [id number] Implanted:Qty: 1 on 11/23/2023 by Ana M Renteria MD at [facility] Collagen Right: Common Femoral Artery [employer] 04/18/2024 [id number] / [id number] / [id number] [employer] Angio-Seal Vip 6fr Closere Device [id number] - [id number] - [id number] Implanted:Qty: 1 on 02/14/2024 by Ana M Renteria MD at [facility] Collagen [employer] 09/08/2024 [id number] / [id number] / [id number] [employer] Angio-Seal Vip 6fr Closere Device [id number] - [id number] - [id number] Implanted:Qty: 1 on 02/14/2024 by Ana M Renteria MD at [facility] [employer]agen [employer] 09/08/2024 [id number] / [id number] / [id number] [employer] Inc/C R Bard [id number] Bard [id number] Monofilament Soft Lightweight Low Profile Square - [id number] Implanted:Qty: 1 on 08/23/2022 by Micheal Cabral MD at [facility] Mesh N/A: Abdomen [employer] Inc/C R Bard [id number] 08/10/2026 [id number] / / [id number] [employer]/C R Bard Mesh Surg 3dmax Right Mid Large Inguinal Hernia [id number] - [id number] Implanted:Qty: 1 on 08/23/2022 by Micheal Cabral MD at [facility] Mesh Right: Inguinal [employer]/C R Bard [id number] 05/12/2027 [id number] / / [employer] Angio-Seal Vip 6fr Closere Device 903862 - [id number] - [id number] Implanted:Qty: 1 on 08/29/2024 by Ana M Renteria MD at [facility] Vascular Closure Device Right: Common Femoral Artery [employer] 04/02/2025 712971 / [id number] / [id number] [employer] Angio-Seal Vip 6fr Closere Device 413288 - [id number] - [id number] Implanted:Qty: 1 on 08/29/2024 by Ana M Renteria MD at [facility] Vascular Closure Device Left: Common Femoral Artery [employer] 04/02/2025 297551 / [id number] / [id number] [employer] Angio-Seal Vip 6fr Closere Device 589754 - [id number] - [id number] Implanted:Qty: 1 on 11/15/2024 by Ana M Renteria MD at [facility] Vascular Closure Device Right: Femoral [employer] 05/29/2025 720465 / [id number] / [id number] [employer] Angio-Seal Vip 6fr Closere Device 761373 - [id number] - [id number] Implanted:Qty: 1 on 11/15/2024 by Ana M Renteria MD at [facility] Vascular Closure Device Left: Femoral [employer] 05/29/2025 943661 / [id number] / [id number] [employer] Suture [place] Cor Knot Pre Loaded Fastener Device Micro Titanium 0 12403 - [id number] Implanted:Qty: 2 on 12/28/2024 by Parth Dalton MD at [facility] [employer] [id number] 01/13/2027 51603 / / [id number] [employer] Device Closure Fibertape Sternal Cerclage Blunt Needle Ar-7289 - [id number] Implanted:Qty: 3 on 12/28/2024 by Parth Dalton MD at [facility] [employer] Inc [id number] 11/12/2029 AR-7289 / / [id number] [employer] Plate Bone Low Profile 6 Hole H Shape Sternum Ti 115.102.06 - [id number] Implanted:Qty: 2 on 12/28/2024 by Parth Dalton MD at [facility] [employer] 115.102. 06 / / [employer] Screw Bone Slf Drl Full Thread Locking 3.5x16mm Ti 100.035.16 - [id number] Implanted:Qty: 10 on 12/28/2024 by Parth Dalton MD at [facility] [employer] 100.035. 16 / / [employer] Screw Bone Slf Drl Full Thread Locking 3.5x18mm Ti 100.035.18 - [id number] Implanted:Qty: 8 on 12/28/2024 by Parth Dalton MD at [facility] Sternum [employer] Inc 100.035. 18 / / [employer] Plate Bone Low Profile 6 Hole O Shape Sternum Ti 115.104.06 - [id number] Implanted:Qty: 1 on 12/28/2024 by Parth Dalton MD at [facility] Sternum [employer] 115.104. 06 / [...] METABOLIC PANEL Routine 01/18/2025 8:37 PM CDT ENGINEERING TEAM SUPERVISOR EVALUATE AND TREAT VIDEOFLUOROSCOPIC SWALLOW STUDY Routine 01/18/2025 1:33 PM CDT ENGINEERING TEAM SUPERVISOR EVALUATE AND TREAT Routine 1:33 PM CDT [...] VIDEO IP Routine 01/10/2025 3:45 PM CDT ENGINEERING TEAM SUPERVISOR EVALUATE AND TREAT VIDEOFLUOROSCOPIC SWALLOW STUDY Routine [...] OR Routine 12/28/2024 7:5 1 AM CDT [place] AN PROCEDURE PLACEHOLDER Routine 12/28/2024 7:30 AM CDT CLOSURE STERNAL - WITH PLATES. 12/28/2024 6:56 AM CDT Coronary artery disease, unspecified vessel or lesion type, unspecified whether angina present, unspecified whether emmonak or transplanted heart MAZE PROCEDURE. 12/28/2024 6:56 AM CDT Coronary artery disease, unspecified vessel or lesion type, unspecified whether angina present, unspecified whether emmonak or transplanted heart ENDOSCOPIC VESSEL HARVEST 12/28/2024 6:56 AM CDT Coronary artery disease, unspecified vessel or lesion type, unspecified whether angina present, unspecified whether emmonak or transplanted heart CORONARY ARTERY BYPASS GRAFT WITH PUMP 12/28/2024 6:56 AM CDT Coronary artery disease, unspecified vessel or lesion type, unspecified whether angina present, unspecified whether emmonak or transplanted heart EGFR Routine 12/27/2024 9:28 [...] ORDERABLES Final Re sult CY[facility]IA MUR[facility] Department [place] [address] * (ABNORMAL) Differential, auto (01/18/2025 8:37 PM CDT) Neutrophil abs 5.65 1.50 - 6.50 K/cumm Imm gran abs 0.04 0.00 - 0.10 K/cumm [facility] Lymphocyte abs 0.38(L) 0.80 - 3.30 K/cumm [facility] Monocyte abs 0.63 0.20 - 0.80 K/cumm [facility] Eosinophil abs 0.04 0.00 - 0.50 K/cumm [facility] Basophil abs 0.03 0.00 - 0.10 K/cumm [facility] Neutrophil pct 83.5 % [facility] Comment: Interpretive Data Percent cell count reference ranges are not reported, since discordance with absolute values may lead to misinterpretation of CBC data. Current Interpretive Data was last revised on 2017. Imm gran pct 0.6 % [facility] Comment: Interpretive Data Percent cell count reference ranges are not reported, since discordance with absolute values may lead to misinterpretation of CBC data. Current Interpretive Data was last revised on 2017. Lymphocyte pct 5.6 % [facility] Comment: Interpretive Data Percent cell count reference ranges are not reported, since discordance with absolute values may lead to misinterpretation of CBC data. Current Interpretive Data was last revised on 2017. Monocyte pct 9.3 % [facility] Comment: Interpretive Data Percent cell count reference ranges are not reported, since discordance with absolute values may lead to misinterpretation of CBC data. Current Interpretive Data was last revised on 2017. Eosinophil pct 0.6 % [facility] Comment: Interpretive Data Percent cell count reference ranges are not reported, since discordance with absolute values may lead to misinterpretation of CBC data. Current Interpretive Data was last revised on 2017. Basophil pct 0.4 % [facility] Comment: Interpretive Data Percent cell count reference ranges are not reported, since discordance with absolute values may lead to misinterpretation of CBC data. Current Interpretive Data was last revised on 2017. Blood 01/18/2025 8:37 PM CDT 01/18/2025 9:32 PM CDT Rosa Beltran NP LAB BLOOD ORDERABLES Final Re sult [facility] Department [place] [address] * (ABNORMAL) CBC with auto differential (01/18/2025 8:37 PM CDT) Pathologist [facility] WBC 6.77 3.80 - 9.90 K/cumm Hgb 8.4(L) 13.0 - 17.5 g/dL [facility] Hct 25.7(L) 38.9 - 50.3 % [facility] Plt 252 150 - 400 K/cumm [facility] MPV 10.5 9.1 - 12.[address] [facility] RBC 2.66(L) 4.30 - 5.80 M/cumm [facility] MCV 96.6(H) 81.3 - 96.[address] [facility] MCH 31.6 27.1 - 33.[address] [facility] MCHC 32.7 32.3 - 35.7 g/dL [facility] RDW CV 17.0(H) 11.1 - 14.9 % [facility] RDW SD 61.1(H) 35.7 - 48.[address] [facility] NRBC abs 0.00 0.00 - 0.01 K/cumm [facility] Blood 01/18/2025 8:37 PM CDT 01/18/2025 9:32 PM CDT Rosa Beltran NP LAB BLOOD ORDERABLES Final Re sult Performing Organization Address City/[facility] Co de Phone Number [facility] Department [place] [address] * Phosphorus (01/18/2025 8:37 PM CDT) Pathologist [facility] Phosphorus, pl 3.3 2.3 - 4.5 mg/dL Blood 01/18/2025 8:37 PM CDT 01/18/2025 9:32 PM CDT Rosa Beltran NET MOBILE DEVELOPER LAB BLOOD ORDERABLES Final Re sult [facility] Department [place] [address] * Magnesium (01/18/2025 8:37 PM CDT) Pathologist [facility] Magnesium 2.1 1.4 - 2.5 mg/dL Blood 01/18/2025 8:37 PM CDT 01/18/2025 9:32 PM CDT Rosa Beltran NP LAB BLOOD ORDERABLES Final Re sult [facility] Department [place] [address] * (ABNORMAL) Basic metabolic panel (01/18/2025 8:37 PM CDT) [facility] Sodium 141 135 - 145 mmol/L Potassium, pl 4.7 3.3 - 4.9 mmol/L [facility] Chloride 106 97 - 110 mmol/L [facility] CO2 27 22 - 32 mmol/L [facility] Anion gap 8 2 - 15 mmol/L [facility] BUN 25 6 - 25 mg/dL [facility] Creatinine 1.52(H) 0.80 - 1.30 mg/dL [facility] Glucose 107 70 - 199 mg/dL [facility] Comment: Interpretive Data Fasting glucose [...] 2022. Calcium 8.1(L) 8.5 - 10.3 mg/dL [facility] Blood 01/18/2025 8:37 PM CDT 01/18/2025 9:32 PM CDT Rosa Ruby NET MOBILE DEVELOPER LAB BLOOD ORDERABLES Final Re sult [facility] Department [place] [address] * ENGINEERING TEAM SUPERVISOR Evaluate and Treat (VFSS) (01/18/2025 1:33 PM [...] 6 cuffed post op. Respiratory/Intubation Status: silver Mosnter 5, 4L Trach Mask CXR 01/10 Stable [...] chart review General Information Megan Kingsleywell 01/18/25 ENGINEERING TEAM SUPERVISOR Received On: 01/18/25 General Observations: Pt seen [...] at 90 degrees. Consistencies Administered: Thin liquids, [place] thickened liquids, Purees, Solids Administered consistencies contain barium product. Thin Liquids: Laryngeal Penetration: None Aspiration Present: No Penetration Aspiration Scale-Thin: 1-Material does not enter airway [place] Thickened Liquids: Laryngeal Penetration: None Aspiration Present: No Penetration Aspiration Scale-[place]: 1-Material does not enter airway Purees: Laryngeal [...] treatment goals and details, if indicated. Plan ENGINEERING TEAM SUPERVISOR Frequency of Services during current admission: Discharge from this Service ENGINEERING TEAM SUPERVISOR Recommendation (Add'l Services): No further ENGINEERING TEAM SUPERVISOR indicated Next Visit Plan: No further ST warranted Additional Referrals: none Discharge Summary Statement If this is the last swallow therapy visit, this serves as the discharge summary. us Charissa Colvin NP ENGINEERING TEAM SUPERVISOR ORDERABLES Final Resul t * ENGINEERING TEAM SUPERVISOR Evaluation and Treatment (01/18/2025 1:33 PM CDT) [...] chart review General Information Megan Titus 01/18/25 ENGINEERING TEAM SUPERVISOR Received On: 01/18/25 General Observations: Pt seen [...] at 90 degrees. Consistencies Administered: Thin liquids, [place] thickened liquids, Purees, Solids Administered consistencies contain barium product. Thin Liquids: Laryngeal Penetration: None Aspiration Present: No Penetration Aspiration Scale-Thin: 1-Material does not enter airway [place] Thickened Liquids: Laryngeal Penetration: None Aspiration Present: No Penetration Aspiration Scale-[place]: 1-Material does not enter airway Purees: Laryngeal [...] treatment goals and details, if indicated. Plan ENGINEERING TEAM SUPERVISOR Frequency of Services during current admission: Discharge from this Service ENGINEERING TEAM SUPERVISOR Recommendation (Add'l Services): No further ENGINEERING TEAM SUPERVISOR indicated Next Visit Plan: No further ST warranted Additional Referrals: none Discharge Summary Statement If this is the last swallow therapy visit, this serves as the discharge summary. us Jyotsna Salazar NET MOBILE DEVELOPER ENGINEERING TEAM SUPERVISOR ORDERABLES Final Resu lt * [place] Modified [...] CDT 01/17/2025 9:15 PM CDT Rosa Beltran NET MOBILE DEVELOPER LAB BLOOD ORDERABLES Final Re sult [facility] Department [place] [address] * (ABNORMAL) Differential, auto (01/17/2025 7:37 PM CDT) Neutrophil abs 6.05 1.50 - 6.50 K/cumm Imm gran abs 0.03 0.00 - 0.10 K/cumm [facility] Lymphocyte abs 0.35(L) 0.80 - 3.30 K/cumm [facility] Monocyte abs 0.43 0.20 - 0.80 K/cumm [facility] Eosinophil abs 0.07 0.00 - 0.50 K/cumm [facility] Basophil abs 0.03 0.00 - 0.10 K/cumm [facility] Neutrophil pct 87.0 % [facility] Comment: Interpretive Data Percent cell count reference ranges are not reported, since discordance with absolute values may lead to misinterpretation of CBC data. Current Interpretive Data was last revised on 2017. Imm gran pct 0.4 % [facility] Comment: Interpretive Data Percent cell count reference ranges are not reported, since discordance with absolute values may lead to misinterpretation of CBC data. Current Interpretive Data was last revised on 2017. Lymphocyte pct 5.0 % [facility] Comment: Interpretive Data Percent cell count reference ranges are not reported, since discordance with absolute values may lead to misinterpretation of CBC data. Current Interpretive Data was last revised on 2017. Monocyte pct 6.2 % [facility] Comment: Interpretive Data Percent cell count reference ranges are not reported, since discordance with absolute values may lead to misinterpretation of CBC data. Current Interpretive Data was last revised on 2017. Eosinophil pct 1.0 % [facility] Comment: Interpretive Data Percent cell count reference ranges are not reported, since discordance with absolute values may lead to misinterpretation of CBC data. Current Interpretive Data was last revised on 2017. Basophil pct 0.4 % [facility] Comment: Interpretive Data Percent cell count reference ranges are not reported, since discordance with absolute values may lead to misinterpretation of CBC data. Current Interpretive Data was last revised on 2017. Blood 01/17/2025 7:37 PM CDT 01/17/2025 8:49 PM CDT Rosa Beltran NP LAB BLOOD ORDERABLES Final Re sult [facility] Department [place] [address] * (ABNORMAL) CBC with auto differential (01/17/2025 7:37 PM CDT) WBC 6.96 3.80 - 9.90 K/cumm Hgb 8.4(L) 13.0 - 17.5 g/dL [facility] Hct 24.7(L) 38.9 - 50.3 % [facility] Plt 277 150 - 400 K/cumm [facility] MPV 10.6 9.1 - 12.[address] [facility] RBC 2.55(L) 4.30 - 5.80 M/cumm [facility] MCV 96.9(H) 81.3 - 96.[address] [facility] MCH 32.9 27.1 - 33.[address] [facility] MCHC 34.0 32.3 - 35.7 g/dL [facility] RDW CV 17.2(H) 11.1 - 14.9 % [facility] RDW SD 61.2(H) 35.7 - 48.[address] [facility] NRBC abs 0.00 0.00 - 0.01 K/cumm [facility] Blood 01/17/2025 7:37 PM CDT 01/17/2025 8:49 PM CDT Rosa Beltran LAB BLOOD ORDERABLES Final Re sult Performing Organization Address [facility] [place] [address] * Type and screen (01/17/2025 7:37 PM CDT) Becca, indirect Negative ABO Rh A Positive [facility] Blood 01/17/2025 7:37 PM CDT 01/17/2025 8:36 PM CDT Narrative [facility] - 01/17/2025 9:30 PM CDT Has the patient had Daratumumab or Isatuximab in the past 6 months?->Unknown [facility] BLOOD BANK TEST ORDERABLE S Final Result Performing Organization Address [facility] [place] [address] * Phosphorus (01/17/2025 7:37 PM CDT) Phosphorus, pl 3.3 2.3 - 4.5 mg/dL Blood 01/17/2025 7:37 PM CDT 01/17/2025 9:06 PM CDT [facility] BLOOD ORDERAB[facility] Final Re sult Performing Organization Address [facility] [place] [address] * Magnesium (01/17/2025 7:37 PM CDT) Magnesium 2.2 1.4 - 2.5 mg/dL Blood 01/17/2025 7:37 PM CDT 01/17/2025 9:06 PM CDT Rosa Beltran NP LAB BLOOD ORDERABLES Final Re sult Performing Organization Address [facility] Co de Phone Number [facility] [place] [address] * (ABNORMAL) Hepatic function panel (01/17/2025 7:37 PM CDT) Bilirubin, total 0.4 0.1 - 1.2 mg/dL Bilirubin, direct 0.2 0.1 - 0.3 mg/dL [facility] Protein, pl 5.9(L) 6.5 - 8.5 g/dL [facility] Albumin 2.7(L) 3.5 - 5.0 g/dL [facility] Alk phos 80 40 - 130 Units/L [facility] ALT 18 7 - 55 Units/L [facility] AST 17 10 - 50 Units/L [facility] Blood 01/17/2025 7:37 PM CDT 01/17/2025 9:06 PM CDT Parth Dalton MD LAB BLOOD ORDERABLES Final Re sult Performing Organization Address [facility] de Phone Number [facility] [place] [place] [address] * (ABNORMAL) Basic metabolic panel (01/17/2025 7:37 PM CDT) Sodium 135 135 - 145 mmol/L Potassium, pl 4.4 3.3 - 4.9 mmol/L [facility] Chloride 100 97 - 110 mmol/L [facility] CO2 24 22 - 32 mmol/L [facility] Anion gap 11 2 - 15 mmol/L [facility] BUN 32(H) 6 - 25 mg/dL [facility] Creatinine 1.47(H) 0.80 - 1.30 mg/dL [facility] Glucose 131 70 - 199 mg/dL [facility] Comment: Interpretive Data Fasting glucose [...] 2022. Calcium 7.9(L) 8.5 - 10.3 mg/dL [facility] Blood 01/17/2025 7:37 PM CDT 01/17/2025 9:06 PM CDT Rosa Beltran NET MOBILE DEVELOPER LAB BLOOD ORDERABLES Final Re sult Performing Organization Address [facility] Co de Phone Number [facility] Department [place] [address] * Infection Prevention Blanche auris PCR, surveillance Axilla/Groin (01/17/2025 6:10 AM CDT) Pathologist [facility] Blanche auris DNA Not Detected Not Detected [facility] Comment: Interpretive Data Testing performed by [facility] using the Daquan flaquita 6800 Blanche auris assay. This assay detects DNA from Blanche auris using Real-Time PCR. This assay is laboratory developed and is not cleared by the [facility] Food and Drug Administration. The performance characteristics have been verified by the [facility]. Axilla/Groin 01/17/2025 6:10 AM CDT 01/17/2025 6:30 AM CDT Narrative [facility] - 01/17/2025 12:20 PM CDT Order placed by [facility] due to ring surveillance. Instant Order Generic Provider LAB MICROBIOLOGY - GENERAL ORDERABLES Final Result Performing Organization Address [facility] Co de Phone Number [facility] Department [place] [address] [facility] * Digoxin level (01/17/2025 6:10 AM CDT) [...] 01/17/2025 6:36 AM CDT us Marci Rater NET MOBILE DEVELOPER LAB BLOOD ORDERABLES Final Resul t [facility] [place] [address] * XR Chest Pa Lateral 2 Views [...] CDT 01/16/2025 8:01 PM CDT Rosa Beltran NET MOBILE DEVELOPER LAB BLOOD ORDERABLES Final Re sult [facility] [place] [address] * (ABNORMAL) Differential, auto (01/16/2025 7:44 PM CDT) Neutrophil abs 6.25 1.50 - 6.50 K/cumm Imm gran abs 0.05 0.00 - 0.10 K/cumm [facility] Lymphocyte abs 0.48(L) 0.80 - 3.30 K/cumm [facility] Monocyte abs 0.58 0.20 - 0.80 K/cumm [facility] Eosinophil abs 0.16 0.00 - 0.50 K/cumm [facility] Basophil abs 0.04 0.00 - 0.10 K/cumm [facility] Neutrophil pct 82.7 % [facility] Comment: Interpretive Data Percent cell count reference ranges are not reported, since discordance with absolute values may lead to misinterpretation of CBC data. Current Interpretive Data was last revised on 2017. Imm gran pct 0.7 % [facility] Comment: Interpretive Data Percent cell count reference ranges are not reported, since discordance with absolute values may lead to misinterpretation of CBC data. Current Interpretive Data was last revised on 2017. Lymphocyte pct 6.3 % [facility] Comment: Interpretive Data Percent cell count reference ranges are not reported, since discordance with absolute values may lead to misinterpretation of CBC data. Current Interpretive Data was last revised on 2017. Monocyte pct 7.7 % [facility] Comment: Interpretive Data Percent cell count reference ranges are not reported, since discordance with absolute values may lead to misinterpretation of CBC data. Current Interpretive Data was last revised on 2017. Eosinophil pct 2.1 % [facility] Comment: Interpretive Data Percent cell count reference ranges are not reported, since discordance with absolute values may lead to misinterpretation of CBC data. Current Interpretive Data was last revised on 2017. Basophil pct 0.5 % [facility] Comment: Interpretive Data Percent cell count reference ranges are not reported, since discordance with absolute values may lead to misinterpretation of CBC data. Current Interpretive Data was last revised on 2017. Blood 01/16/2025 7:44 PM CDT 01/16/2025 8:01 PM CDT Rosa Beltran NP LAB BLOOD ORDERABLES Final Re sult [facility] [place] [address] * (ABNORMAL) CBC with auto differential (01/16/2025 7:44 PM CDT) WBC 7.56 3.80 - 9.90 K/cumm Hgb 8.3(L) 13.0 - 17.5 g/dL [facility] Hct 25.6(L) 38.9 - 50.3 % [facility] Plt 270 150 - 400 K/cumm [facility] MPV 9.9 9.1 - 12.[address] [facility] RBC 2.65(L) 4.30 - 5.80 M/cumm [facility] MCV 96.6(H) 81.3 - 96.[address] [facility] MCH 31.3 27.1 - 33.[address] [facility] MCHC 32.4 32.3 - 35.7 g/dL [facility] RDW CV 16.8(H) 11.1 - 14.9 % [facility] RDW SD 59.9(H) 35.7 - 48.[address] [facility] NRBC abs 0.00 0.00 - 0.01 K/cumm [facility] Blood 01/16/2025 7:44 PM CDT 01/16/2025 8:01 PM CDT Rosa Beltran NET MOBILE DEVELOPER LAB BLOOD ORDERABLES Final Re sult Performing Organization Address [facility] [place] [address] * Phosphorus (01/16/2025 7:44 PM CDT) [facility] Phosphorus, pl 3.4 2.3 - 4.5 mg/dL Blood 01/16/2025 7:44 PM CDT 01/16/2025 8:01 PM CDT Rosa Beltran NET MOBILE DEVELOPER LAB BLOOD ORDERABLES Final Re sult Performing Organization Address [facility] Co de Phone [place] [address] * Magnesium (01/16/2025 7:44 PM CDT) [facility] Magnesium 2.4 1.4 - 2.5 mg/dL Blood 01/16/2025 7:44 PM CDT 01/16/2025 8:01 PM CDT Rosa Beltran NET MOBILE DEVELOPER LAB BLOOD ORDERABLES Final Re sult Performing Organization Address [facility] Co de Phone [place] [address] * (ABNORMAL) Basic metabolic panel (01/16/2025 7:44 PM CDT) [facility] Sodium 142 135 - 145 mmol/L Potassium, pl 4.5 3.3 - 4.9 mmol/L [facility] Chloride 107 97 - 110 mmol/L [facility] CO2 26 22 - 32 mmol/L [facility] Anion gap 9 2 - 15 mmol/L [facility] BUN 34(H) 6 - 25 mg/dL [facility] Creatinine 1.31(H) 0.80 - 1.30 mg/dL [facility] Glucose 111 70 - 199 mg/dL [facility] Comment: Interpretive Data Fasting glucose [...] Calcium 7.8(L) 8.5 - 10.3 mg/dL [facility] Blood 01/16/2025 7:44 PM CDT 01/16/2025 8:01 PM CDT Rosa Beltran NET MOBILE DEVELOPER LAB BLOOD ORDERABLES Final Re sult [facility] Department [place] [address] * TRANSTHORACIC ECHO (TTE) LIMITED/FOLLOW UP W LTD DOPPLER/CF W CONTRAST (01/16/2025 5:39 PM CDT) EF Mod BP 47 % CONS SCIMAGE Anatomical Region Laterality Modality Ultrasound 01/16/2025 4:34 PM CDT Narrative 01/16/2025 6:03 PM CDT [facility] [place] [address] Transthoracic Echocardiographic Report Patient Name: MEGAN TITUS G : 1950 (74y 11m) Sex: M Study Date: 01/16/2025 04:34:52 PM Ht(Inch): 70 Wt(Lb): 203.93 BSA: 2.14 Slitter Creaser Slotter Helper: Kasey Almendarez RDCS Location: [id number] Order Provider: CHARISSA COLVIN Heart Rate: 93 [...] Note Rene Chanel MD PhD - 01/16/2025 [facility] [place] [address] Transthoracic Echocardiographic Report Patient Name: MEGAN TITUS G : 1950 (74y 11m) Sex: M Study Date: 01/16/2025 04:34:52 PM Ht(Inch): 70 Wt(Lb): 203.93 BSA: 2.14 Slitter Creaser Slotter Helper: Kasey Almendarez RDCS Location: [id number] Order Provider:CHARISSA COLVIN Heart Rate: 93 BMI: [...] (ABNORMAL) eGFR (01/16/2025 4:23 PM CDT) Pathologist [facility] eGFR 58(L) >=60 mL/min/1. 73 m2 Comment: [...] Colvin NP LAB BLOOD ORDERABLES Final Result [facility] Department [place] [address] * (ABNORMAL) Basic metabolic panel (01/16/2025 4:23 PM CDT) [facility] Sodium 138 135 - 145 mmol/L Potassium, pl 4.8 3.3 - 4.9 mmol/L [facility] Chloride 104 97 - 110 mmol/L [facility] CO2 27 22 - 32 mmol/L [facility] Anion gap 7 2 - 15 mmol/L [facility] BUN 36(H) 6 - 25 mg/dL [facility] Creatinine 1.30 0.80 - 1.30 mg/dL [facility] Glucose 113 70 - 199 mg/dL [facility] Comment: Interpretive Data Fasting glucose [...] 2022. Calcium 8.0(L) 8.5 - 10.3 mg/dL [facility] Blood 01/16/2025 4:23 PM CDT 01/16/2025 5:41 PM CDT Charissa Colvin NET MOBILE DEVELOPER LAB BLOOD ORDERABLES Final Result Performing Organization Address City/[facility]/ZIP Co de Phone Number [facility] Department [place] [address] * Potassium, whole blood (01/16/2025 4:38 AM CDT) Pathologist [facility] Potassium, bld 4.2 3.3 - 4.9 mmol/L Blood 01/16/2025 4:38 AM CDT 01/16/2025 4:48 AM CDT Rosa Beltran NET MOBILE DEVELOPER LAB BLOOD ORDERABLES Final Re sult Performing Organization Address City/[facility]/ZIP Co de Phone Number [facility] [place] [address] * (ABNORMAL) eGFR (01/15/2025 11:59 PM CDT) Pathologist [facility] eGFR 56(L) >=60 mL/min/1. 73 m2 [...] F inal Result Performing Organization Address [facility] Co de Phone Number [facility] [place] [address] * (ABNORMAL) Creatinine (01/15/2025 11:59 PM CDT) Creatinine 1.34(H) 0.80 - 1.30 mg/dL Blood 01/15/2025 11:5 9 PM CDT 01/16/2025 12:31 AM CDT Narrative [facility] - 01/16/2025 1:47 AM CDT While on apixaban Gloria Ledezma NET MOBILE DEVELOPER LAB BLOOD ORDERABLES F inal Result Performing Organization Address City/[facility] Co de Phone Number [facility] [place] [address] * (ABNORMAL) eGFR (01/15/2025 7:47 PM CDT) [...] CDT 01/15/2025 8:25 PM CDT Rosa Beltran NET MOBILE DEVELOPER LAB BLOOD ORDERABLES Final Re sult [facility] Department [place] [address] * (ABNORMAL) Differential, auto (01/15/2025 7:47 PM CDT) Neutrophil abs 7.63(H) 1.50 - 6.50 K/cumm Imm gran abs 0.07 0.00 - 0.10 K/cumm [facility] Lymphocyte abs 0.55(L) 0.80 - 3.30 K/cumm [facility] Monocyte abs 0.50 0.20 - 0.80 K/cumm [facility] Eosinophil abs 0.12 0.00 - 0.50 K/cumm [facility] Basophil abs 0.04 0.00 - 0.10 K/cumm [facility] Neutrophil pct 85.7 % [facility] Comment: Interpretive Data Percent cell count reference ranges are not reported, since discordance with absolute values may lead to misinterpretation of CBC data. Current Interpretive Data was last revised on 2017. Imm gran pct 0.8 % [facility] Comment: Interpretive Data Percent cell count reference ranges are not reported, since discordance with absolute values may lead to misinterpretation of CBC data. Current Interpretive Data was last revised on 2017. Lymphocyte pct 6.2 % [facility] Comment: Interpretive Data Percent cell count reference ranges are not reported, since discordance with absolute values may lead to misinterpretation of CBC data. Current Interpretive Data was last revised on 2017. Monocyte pct 5.6 % [facility] Comment: Interpretive Data Percent cell count reference ranges are not reported, since discordance with absolute values may lead to misinterpretation of CBC data. Current Interpretive Data was last revised on 2017. Eosinophil pct 1.3 % [facility] Comment: Interpretive Data Percent cell count reference ranges are not reported, since discordance with absolute values may lead to misinterpretation of CBC data. Current Interpretive Data was last revised on 2017. Basophil pct 0.4 % [facility] Comment: Interpretive Data Percent cell count reference ranges are not reported, since discordance with absolute values may lead to misinterpretation of CBC data. Current Interpretive Data was last revised on 2017. Blood 01/15/2025 7:47 PM CDT 01/15/2025 9:03 PM CDT Rosa Beltran NP LAB BLOOD ORDERABLES Final Re sult [facility] Department [place] [address] * (ABNORMAL) CBC with auto differential (01/15/2025 7:47 PM CDT) WBC 8.91 3.80 - 9.90 K/cumm Hgb 9.1(L) 13.0 - 17.5 g/dL [facility] Hct 28.6(L) 38.9 - 50.3 % [facility] Plt 301 150 - 400 K/cumm [facility] MPV 10.3 9.1 - 12.[address] [facility] RBC 2.90(L) 4.30 - 5.80 M/cumm [facility] MCV 98.6(H) 81.3 - 96.[address] [facility] MCH 31.4 27.1 - 33.[address] [facility] MCHC 31.8(L) 32.3 - 35.7 g/dL [facility] RDW CV 16.9(H) 11.1 - 14.9 % [facility] RDW SD 61.0(H) 35.7 - 48.[address] [facility] NRBC abs 0.00 0.00 - 0.01 K/cumm [facility] Blood 01/15/2025 7:47 PM CDT 01/15/2025 9:03 PM CDT Rosa Beltran NET MOBILE DEVELOPER LAB BLOOD ORDERABLES Final Re sult Performing Organization Address City/[facility] Co de Phone Number [facility] Department [place] [address] * Phosphorus (01/15/2025 7:47 PM CDT) Phosphorus, pl 4.1 2.3 - 4.5 mg/dL Blood 01/15/2025 7:47 PM CDT 01/15/2025 8:25 PM CDT Rosa Beltran NET MOBILE DEVELOPER LAB BLOOD ORDERABLES Final Re sult Performing Organization Address [facility] Co de Phone Number [facility] Department [place] [address] * Magnesium (01/15/2025 7:47 PM CDT) Magnesium 2.3 1.4 - 2.5 mg/dL Blood 01/15/2025 7:47 PM CDT 01/15/2025 8:25 PM CDT Rosa Beltran NET MOBILE DEVELOPER LAB BLOOD ORDERABLES Final Re sult Performing Organization Address City/[facility] Co de Phone Number [facility] Department [place] [address] * (ABNORMAL) Basic metabolic panel (01/15/2025 7:47 PM CDT) Pathologist [facility] Sodium 137 135 - 145 mmol/L Potassium, pl 4.4 3.3 - 4.9 mmol/L [facility] Chloride 102 97 - 110 mmol/L [facility] CO2 23 22 - 32 mmol/L [facility] Anion gap 12 2 - 15 mmol/L [facility] BUN 35(H) 6 - 25 mg/dL [facility] Creatinine 1.40(H) 0.80 - 1.30 mg/dL [facility] Glucose 145 70 - 199 mg/dL [facility] Comment: Interpretive Data Fasting glucose [...] 2022. Calcium 8.1(L) 8.5 - 10.3 mg/dL [facility] Blood 01/15/2025 7:47 PM CDT 01/15/2025 8:25 PM CDT Rosa Beltran NP LAB BLOOD ORDERABLES Final Re sult [facility] Department [place] [address] * Infection Prevention Blanche auris PCR, surveillance Axilla/Groin (01/15/2025 5:51 AM CDT) Pathologist [facility] Blanche auris DNA Not Detected Not Detected [facility] Comment: Interpretive Data Testing performed by [facility] using the Daquan flaquita 6800 Blanche auris assay. This assay detects DNA from Blanche auris using Real-Time PCR. This assay is laboratory developed and is not cleared by the [facility] Food and Drug Administration. The performance characteristics have been verified by the [facility]. Axilla/Groin 01/15/2025 5:51 AM CDT 01/15/2025 6:11 AM CDT Narrative [facility] - 01/15/2025 12:39 PM CDT Order placed by [facility] due to ring surveillance. Instant Order Generic Provider LAB MICROBIOLOGY - GENERAL ORDERABLES Final Result [facility] Department [place] [address] [facility] * Potassium, whole blood (01/15/2025 5:51 AM CDT) Potassium, bld 4.1 3.3 - 4.9 mmol/L Blood 01/15/2025 5:51 AM CDT 01/15/2025 5:57 AM CDT Jyotsna Salazar LAB BLOOD ORDERABLES Final Result [facility] Department [place] [address] * (ABNORMAL) eGFR (01/14/2025 8:45 PM CDT) [...] NP LAB BLOOD ORDERABLES Final Re sult [facility] Department [place] [address] * (ABNORMAL) Differential, auto (01/14/2025 8:45 PM CDT) Neutrophil abs 7.22(H) 1.50 - 6.50 K/cumm Imm gran abs 0.08 0.00 - 0.10 K/cumm [facility] Lymphocyte abs 0.49(L) 0.80 - 3.30 K/cumm [facility] Monocyte abs 0.67 0.20 - 0.80 K/cumm [facility] Eosinophil abs 0.14 0.00 - 0.50 K/cumm [facility] Basophil abs 0.05 0.00 - 0.10 K/cumm [facility] Neutrophil pct 83.5 % [facility] Comment: Interpretive Data Percent cell count reference ranges are not reported, since discordance with absolute values may lead to misinterpretation of CBC data. Current Interpretive Data was last revised on 2017. Imm gran pct 0.9 % [facility] Comment: Interpretive Data Percent cell count reference ranges are not reported, since discordance with absolute values may lead to misinterpretation of CBC data. Current Interpretive Data was last revised on 2017. Lymphocyte pct 5.7 % [facility] Comment: Interpretive Data Percent cell [...] revised on 2017. Eosinophil pct 1.6 % [facility] Comment: Interpretive Data Percent cell count reference ranges are not reported, since discordance with absolute values may lead to misinterpretation of CBC data. Current Interpretive Data was last revised on 2017. Basophil pct 0.6 % [facility] Comment: Interpretive Data Percent cell count reference ranges are not reported, since discordance with absolute values may lead to misinterpretation of CBC data. Current Interpretive Data was last revised on 2017. Blood 01/14/2025 8:45 PM CDT 01/14/2025 9:59 PM CDT Rosa Beltran NET MOBILE DEVELOPER LAB BLOOD ORDERABLES Final Re sult [facility] Department [place] [address] * (ABNORMAL) CBC with auto differential (01/14/2025 8:45 PM CDT) WBC 8.65 3.80 - 9.90 K/cumm Hgb 8.9(L) 13.0 - 17.5 g/dL [facility] Hct 27.0(L) 38.9 - 50.3 % [facility] Plt 302 150 - 400 K/cumm [facility] MPV 10.1 9.1 - 12.[address] [facility] RBC 2.81(L) 4.30 - 5.80 M/cumm [facility] MCV 96.1 81.3 - 96.[address] [facility] MCH 31.7 27.1 - 33.[address] [facility] MCHC 33.0 32.3 - 35.7 g/dL [facility] RDW CV 17.2(H) 11.1 - 14.9 % [facility] RDW SD 61.4(H) 35.7 - 48.[address] [facility] NRBC abs 0.00 0.00 - 0.01 K/cumm [facility] Blood 01/14/2025 8:45 PM CDT 01/14/2025 9:59 PM CDT Rosa Beltran NP LAB BLOOD ORDERABLES Final Re sult Performing Organization Address City/[facility] [place] [address] * Type and screen (01/14/2025 8:45 PM CDT) ABO Rh A Positive Becca, indirect Negative [facility] Blood 01/14/2025 8:45 PM CDT 01/14/2025 10:10 PM CDT Narrative [facility] - 01/14/2025 11:33 PM CDT Has the patient had Daratumumab or Isatuximab in the past 6 months?->Unknown Rosa Beltran LAB BLOOD BANK TEST ORDERABLE S Final Result Performing Organization Address [facility] [place] [address] * Phosphorus (01/14/2025 8:45 PM CDT) Phosphorus, pl 4.0 2.3 - 4.5 mg/dL Blood 01/14/2025 8:45 PM CDT 01/14/2025 9:57 PM CDT Rosa Beltran NET MOBILE DEVELOPER LAB BLOOD ORDERABLES Final Re sult Performing Organization Address [facility] [place] [address] * Magnesium (01/14/2025 8:45 PM CDT) Magnesium 2.2 1.4 - 2.5 mg/dL Blood 01/14/2025 8:45 PM CDT 01/14/2025 9:57 PM CDT Rosa Beltran NP LAB BLOOD ORDERABLES Final Re sult Performing Organization Address [facility] Co de Phone Number [facility] [place] [address] * (ABNORMAL) Hepatic function panel (01/14/2025 8:45 PM CDT) Bilirubin, total 0.5 0.1 - 1.2 mg/dL Bilirubin, direct 0.2 0.1 - 0.3 mg/dL [facility] Protein, pl 5.8(L) 6.5 - 8.5 g/dL [facility] Albumin 2.9(L) 3.5 - 5.0 g/dL [facility] Alk phos 73 40 - 130 Units/L [facility] ALT 33 7 - 55 Units/L [facility] AST 19 10 - 50 Units/L [facility] Blood 01/14/2025 8:45 PM CDT 01/14/2025 9:57 PM CDT Parth Dalton MD LAB BLOOD ORDERABLES Final Re sult Performing Organization Address [facility] de Phone Number [facility] [place] [address] * (ABNORMAL) Basic metabolic panel (01/14/2025 8:45 PM CDT) Sodium 137 135 - 145 mmol/L Potassium, pl 4.5 3.3 - 4.9 mmol/L [facility] Chloride 101 97 - 110 mmol/L [facility] CO2 25 22 - 32 mmol/L [facility] Anion gap 11 2 - 15 mmol/L [facility] BUN 39(H) 6 - 25 mg/dL [facility] Creatinine 1.34(H) 0.80 - 1.30 mg/dL [facility] Glucose 120 70 - 199 mg/dL [facility] Comment: Interpretive Data Fasting glucose [...] 2022. Calcium 8.0(L) 8.5 - 10.3 mg/dL [facility] Blood 01/14/2025 8:45 PM CDT 01/14/2025 9:57 PM CDT Rosa Beltran NP LAB BLOOD ORDERABLES Final Re sult [facility] [place] [address] * XR Chest 1 View (01/14/2025 6:52 [...] by: Magnus Farah M.D. us Marci Rater NET MOBILE DEVELOPER IMG XR PROCEDURES Final Result * (ABNORMAL) [...] NP LAB BLOOD ORDERABLES Final Re sult [facility] Department [place] [address] * (ABNORMAL) Differential, auto (01/13/2025 10:00 PM CDT) Neutrophil abs 7.65(H) 1.50 - 6.50 K/cumm Imm gran abs 0.09 0.00 - 0.10 K/cumm [facility] Lymphocyte abs 0.64(L) 0.80 - 3.30 K/cumm [facility] Monocyte abs 0.87(H) 0.20 - 0.80 K/cumm [facility] Eosinophil abs 0.14 0.00 - 0.50 K/cumm [facility] Basophil abs 0.04 0.00 - 0.10 K/cumm [facility] Neutrophil pct 81.1 % [facility] Comment: Interpretive Data Percent cell count reference ranges are not reported, since discordance with absolute values may lead to misinterpretation of CBC data. Current Interpretive Data was last revised on 2017. Imm gran pct 1.0 % [facility] Comment: Interpretive Data Percent cell count reference ranges are not reported, since discordance with absolute values may lead to misinterpretation of CBC data. Current Interpretive Data was last revised on 2017. Lymphocyte pct 6.8 % [facility] Comment: Interpretive Data Percent cell count reference ranges are not reported, since discordance with absolute values may lead to misinterpretation of CBC data. Current Interpretive Data was last revised on 2017. Monocyte pct 9.2 % [facility] Comment: Interpretive Data Percent cell count reference ranges are not reported, since discordance with absolute values may lead to misinterpretation of CBC data. Current Interpretive Data was last revised on 2017. Eosinophil pct 1.5 % [facility] Comment: Interpretive Data Percent cell count reference ranges are not reported, since discordance with absolute values may lead to misinterpretation of CBC data. Current Interpretive Data was last revised on 2017. Basophil pct 0.4 % [facility] Comment: Interpretive Data Percent cell count reference ranges are not reported, since discordance with absolute values may lead to misinterpretation of CBC data. Current Interpretive Data was last revised on 2017. Blood 01/13/2025 10:0 0 PM CDT 01/13/2025 10:43 PM CDT Rosa Beltran NP LAB BLOOD ORDERABLES Final Re sult [facility] Department [place] [address] * (ABNORMAL) CBC with auto differential (01/13/2025 10:00 PM CDT) WBC 9.43 3.80 - 9.90 K/cumm Hgb 9.3(L) 13.0 - 17.5 g/dL [facility] Hct 27.4(L) 38.9 - 50.3 % [facility] Plt 319 150 - 400 K/cumm [facility] MPV 10.2 9.1 - 12.[address] [facility] RBC 2.88(L) 4.30 - 5.80 M/cumm [facility] MCV 95.1 81.3 - 96.[address] [facility] MCH 32.3 27.1 - 33.[address] [facility] MCHC 33.9 32.3 - 35.7 g/dL [facility] RDW CV 17.7(H) 11.1 - 14.9 % [facility] RDW SD 61.7(H) 35.7 - 48.[address] [facility] NRBC abs 0.00 0.00 - 0.01 K/cumm [facility] Blood 01/13/2025 10:0 0 PM CDT 01/13/2025 10:43 PM CDT Rosa Beltran NET MOBILE DEVELOPER LAB BLOOD ORDERABLES Final Re sult Performing Organization Address [facility] Co de Phone Number [facility] [place] [address] * (ABNORMAL) Phosphorus (01/13/2025 10:00 PM CDT) Pathologist [facility] Phosphorus, pl 4.8(H) 2.3 - 4.5 mg/dL Blood 01/13/2025 10:0 0 PM CDT 01/13/2025 10:43 PM CDT Rosa Beltran NET MOBILE DEVELOPER LAB BLOOD ORDERABLES Final Re sult Performing Organization Address [facility] de Phone Number [facility] [place] [address] * Magnesium (01/13/2025 10:00 PM CDT) [facility] Magnesium 2.1 1.4 - 2.5 mg/dL Blood 01/13/2025 10:0 0 PM CDT 01/13/2025 10:43 PM CDT Rosa Beltran NET MOBILE DEVELOPER LAB BLOOD ORDERABLES Final Re sult Performing Organization Address [facility] de Phone Number [facility] [place] [address] * (ABNORMAL) Basic metabolic panel (01/13/2025 10:00 PM CDT) [facility] Sodium 139 135 - 145 mmol/L Potassium, pl 4.8 3.3 - 4.9 mmol/L [facility] Chloride 102 97 - 110 mmol/L [facility] CO2 26 22 - 32 mmol/L [facility] Anion gap 11 2 - 15 mmol/L [facility] BUN 42(H) 6 - 25 mg/dL [facility] Creatinine 1.43(H) 0.80 - 1.30 mg/dL [facility] Glucose 86 70 - 199 mg/dL [facility] Comment: Interpretive Data Fasting glucose [...] 2022. Calcium 8.4(L) 8.5 - 10.3 mg/dL [facility] Blood 01/13/2025 10:0 0 PM CDT 01/13/2025 10:43 PM CDT Rosa Beltran NP LAB BLOOD ORDERABLES Final Re sult Performing Organization Address City/[facility]/ZIP Co de Phone Number [facility] [place] [address] * Potassium, whole blood (01/13/2025 6:49 AM CDT) Potassium, bld 4.5 3.3 - 4.9 mmol/L Blood 01/13/2025 6:49 AM CDT 01/13/2025 6:56 AM CDT Parth Daltno MD LAB BLOOD ORDERABLES Final Re sult [facility] [place] [address] * Lactate, whole blood (01/13/2025 6:49 AM CDT) Lactate, bld 0.9 0.7 - 2.0 mmol/L Blood 01/13/2025 6:49 AM CDT 01/13/2025 6:56 AM CDT Rosa Beltran [employer]EL[employer] LAB BLOOD ORDERABLES Final Re sult [facility] Department [place] [address] * (ABNORMAL) CBC without differential (01/13/2025 6:49 AM CDT) [facility] WBC 7.74 3.80 - 9.90 K/cumm Hgb 10.1(L) 13.0 - 17.5 g/dL [facility] Hct 30.4(L) 38.9 - 50.3 % [facility] Plt 291 150 - 400 K/cumm [facility] MPV 9.8 9.1 - 12.[address] [facility] RBC 3.17(L) 4.30 - 5.80 M/cumm [facility] MCV 95.9 81.3 - 96.[address] [facility] Comment:MCV delta due to beau arent blood transfusion. MCH 31.9 27.1 - 33.[address] [facility] MCHC 33.2 32.3 - 35.7 g/dL [facility] RDW CV 18.1(H) 11.1 - 14.9 % [facility] RDW SD 64.9(H) 35.7 - 48.[address] [facility] NRBC abs 0.00 0.00 - 0.01 K/cumm [facility] Blood 01/13/2025 6:49 AM CDT 01/13/2025 6:56 AM CDT Narrative [facility] - 01/13/2025 7:26 AM CDT 1 hour after transfusion of red blood cells is complete Rosa Beltran [employer] DEVELOPER LAB BLOOD ORDERABLES Final Re sult Performing Organization Address City/[facility]/ZIP Co de Phone Number [facility] Department [place] [address] * Transfuse RBC (01/13/2025 4:01 AM CDT) Blood Rosa Beltran NET MOBILE DEVELOPER BLOOD TRANSFUSION ORDERABLES Final Result CYNTHIA MURPHY [facility] [place] [address] * (ABNORMAL) Aerobic culture and gram stain Tracheal aspirate Tracheal (01/13/2025 2:28 AM CDT) Direct Specimen Exam Stain: Abundant polymorphonuclear leukocytes seen. Abundant squamous epithelial cells seen indicating excessive oral pharyngeal contamination Abundant mixed bacterial katja seen on Gram stain. Report Final Report: Greater than or equal to 100,000 colonies/ml of Stenotrophomonas maltophilia Plus growth of clinically insignificant bacterial katja. (.) [facility] Organism STENOTROPHOMONAS MALTOPHILIA [facility] Organism PLUS GROWTH OF CLINICALLY INSIGNIFICANT KATJA. [facility] Tracheal aspirate (Tracheal) 01/13/2025 2:28 AM CDT 01/13/2025 3:35 AM CDT Narrative [facility] - 01/15/2025 2:01 PM CDT Testing performed by [facility] ([phone]) Specimens submitted from normally sterile body sites [...] OR DERABLES Final Result Performing Organization Address City/[facility]/ZIP Co de Phone Number CYNTHIA MURPHY [facility] Department [place] [address] * Blood culture Blood (01/13/2025 2:18 AM [...] performance characteristics have been verified by the [facility]. For questions about this culture, contact the Microbiology Laboratory at [phone]. Interpretive data was last revised on 24. us Rosa Beltran NP LAB MICROBIOLOGY - GENERAL OR DERABLES Final Result CYNTHIA MURPHY [facility] Department [place] [address] * Blood culture Blood (01/13/2025 2:18 AM [...] performance characteristics have been verified by the [facility]. For questions about this culture, contact the Microbiology Laboratory at [phone]. Interpretive data was last revised on 24. Rosa Beltran NP LAB MICROBIOLOGY - GENERAL OR DERABLES Final Result [facility] [place] [address] * Transfuse RBC (01/13/2025 12:41 AM CDT) Blood Rosa Beltran NP BLOOD TRANSFUSION ORDERABLES Final Result CYNTHIA [facility] [place] [address] * CT Chest Abdomen Pelvis WO Contrast [...] Units (01/12/2025 10:53 PM CDT) Product code [id number] Unit Number [id number] Q [facility] Product Blood Type APOS [facility] Dispense Status PRESUMED TRANSFUSED [facility] Blood 01/12/2025 10:5 3 PM CDT 01/12/2025 10:53 PM CDT Narrative [facility] - 01/13/2025 4:01 PM CDT Are special requirements needed? (All products are leukoreduced and CMV- safe)- >No Date required:-20250112 LRRBC # of [id number] Reasons:-Cardiovascular disease, Hgb <8 g/dL} Rosa Beltran NP BLOOD BANK PRODUCT ORDERABLES Final Result CYNTHIA [facility] Department [place] [address] * Prepare RBC: 1 Units (01/12/2025 8:57 PM CDT) Product code [id number] Unit Number [id number] P [facility] Product Blood Type APOS CERNER BJ Dispense Status PRESUMED TRANSFUSED [facility] Blood 01/12/2025 8:57 PM CDT 01/12/2025 8:58 PM CDT Narrative [facility] - 01/13/2025 4:01 PM CDT Are special requirements needed? (All products are leukoreduced and CMV- safe)- >No Date required:-20250112 LRRBC # of [id number] Reasons:-Cardiovascular disease, Hgb <8 g/dL} Rosa Beltran NP BLOOD BANK PRODUCT ORDERABLES Final Result Performing Organization Address City/[facility]/ZIP Co de Phone Number [facility] [place] [place] [address] * Infection Prevention Blanche auris PCR, surveillance Axilla/Groin (01/12/2025 6:27 PM CDT) Pathologist [facility] Blanche auris DNA Not Detected Not Detected [facility] Comment: Interpretive Data Testing performed by [facility] using the Daquan flaquita 6800 Blanche auris assay. This assay detects DNA from Blanche auris using Real-Time PCR. This assay is laboratory developed and is not cleared by the [facility] Food and Drug Administration. The performance characteristics have been verified by the [facility]. Axilla/Groin 01/12/2025 6:27 PM CDT 01/12/2025 6:35 PM CDT Narrative [facility] - 01/13/2025 12:31 PM CDT Order placed by [facility] due to ring surveillance. Instant Order Generic Provider LAB MICROBIOLOGY - GENERAL ORDERABLES Final Result Performing Organization Address City/[facility] Co de Phone Number [facility] Department [place] [address] [facility] * (ABNORMAL) eGFR (01/12/2025 6:27 PM CDT) Pathologist [facility] eGFR 50(L) >=60 mL/min/1. 73 m2 [...] NP LAB BLOOD ORDERABLES Final Re sult [facility] Department [place] [address] * (ABNORMAL) Differential, auto (01/12/2025 6:27 PM CDT) Neutrophil abs 8.03(H) 1.50 - 6.50 K/cumm Imm gran abs 0.12(H) 0.00 - 0.10 K/cumm [facility] Lymphocyte abs 0.72(L) 0.80 - 3.30 K/cumm [facility] Monocyte abs 0.27 0.20 - 0.80 K/cumm [facility] Eosinophil abs 0.13 0.00 - 0.50 K/cumm [facility] Basophil abs 0.04 0.00 - 0.10 K/cumm [facility] Neutrophil pct 86.3 % [facility] Comment: Interpretive Data Percent cell count reference ranges are not reported, since discordance with absolute values may lead to misinterpretation of CBC data. Current Interpretive Data was last revised on 2017. Imm gran pct 1.3 % [facility] Comment: Interpretive Data Percent cell count reference ranges are not reported, since discordance with absolute values may lead to misinterpretation of CBC data. Current Interpretive Data was last revised on 2017. Lymphocyte pct 7.7 % [facility] Comment: Interpretive Data Percent cell count reference ranges are not reported, since discordance with absolute values may lead to misinterpretation of CBC data. Current Interpretive Data was last revised on 2017. Monocyte pct 2.9 % [facility] Comment: Interpretive Data Percent cell count reference ranges are not reported, since discordance with absolute values may lead to misinterpretation of CBC data. Current Interpretive Data was last revised on 2017. Eosinophil pct 1.4 % [facility] Comment: Interpretive Data Percent cell count reference ranges are not reported, since discordance with absolute values may lead to misinterpretation of CBC data. Current Interpretive Data was last revised on 2017. Basophil pct 0.4 % [facility] Comment: Interpretive Data Percent cell count reference ranges are not reported, since discordance with absolute values may lead to misinterpretation of CBC data. Current Interpretive Data was last revised on 2017. Blood 01/12/2025 6:27 PM CDT 01/12/2025 6:56 PM CDT Rosa Beltran NP LAB BLOOD ORDERABLES Final Re sult [facility] Department [place] [address] * (ABNORMAL) CBC with auto differential (01/12/2025 6:27 PM CDT) WBC 9.31 3.80 - 9.90 K/cumm Hgb 8.0(L) 13.0 - 17.5 g/dL [facility] Hct 24.4(L) 38.9 - 50.3 % [facility] Plt 351 150 - 400 K/cumm [facility] MPV 10.0 9.1 - 12.[address] [facility] RBC 2.40(L) 4.30 - 5.80 M/cumm [facility] MCV 101.7(H) 81.3 - 96.[address] [facility] MCH 33.3 27.1 - 33.[address] [facility] MCHC 32.8 32.3 - 35.7 g/dL [facility] RDW CV 13.9 11.1 - 14.9 % [facility] RDW SD 51.2(H) 35.7 - 48.[address] [facility] NRBC abs 0.02(H) 0.00 - 0.01 K/cumm [facility] Blood 01/12/2025 6:27 PM CDT 01/12/2025 6:56 PM CDT Rosa Beltran NET MOBILE DEVELOPER LAB BLOOD ORDERABLES Final Re sult Performing Organization Address City/[facility]/[place] [address] * (ABNORMAL) Phosphorus (01/12/2025 6:27 PM CDT) Phosphorus, pl 5.2(H) 2.3 - 4.5 mg/dL Blood 01/12/2025 6:27 PM CDT 01/12/2025 6:56 PM CDT Rosa Beltran NET MOBILE DEVELOPER LAB BLOOD ORDERABLES Final Re sult Performing Organization Address [facility] Co de Phone Number [facility] [place] [address] * Magnesium (01/12/2025 6:27 PM CDT) Pathologist [facility] Magnesium 2.0 1.4 - 2.5 mg/dL Blood 01/12/2025 6:27 PM CDT 01/12/2025 6:56 PM CDT Rosa Beltran NET MOBILE DEVELOPER LAB BLOOD ORDERABLES Final Re sult Performing Organization Address City/[facility]/ZIP Co de Phone Number [facility] Department [place] [address] * (ABNORMAL) Basic metabolic panel (01/12/2025 6:27 PM CDT) [facility] Sodium 140 135 - 145 mmol/L Potassium, pl 5.0(H) 3.3 - 4.9 mmol/L [facility] Chloride 103 97 - 110 mmol/L [facility] CO2 27 22 - 32 mmol/L [facility] Anion gap 10 2 - 15 mmol/L [facility] BUN 46(H) 6 - 25 mg/dL [facility] Creatinine 1.46(H) 0.80 - 1.30 mg/dL [facility] Glucose 150 70 - 199 mg/dL [facility] Comment: Interpretive Data Fasting glucose [...] 2022. Calcium 9.4 8.5 - 10.3 mg/dL [facility] Blood 01/12/2025 6:27 PM CDT 01/12/2025 6:56 PM CDT Rosa Beltran NP LAB BLOOD ORDERABLES Final Re sult [facility] Department [place] [address] * (ABNORMAL) CBC without differential (01/12/2025 5:03 AM CDT) [facility] WBC 8.18 3.80 - 9.90 K/cumm Hgb 7.9(L) 13.0 - 17.5 g/dL [facility] Hct 24.1(L) 38.9 - 50.3 % [facility] Plt 355 150 - 400 K/cumm [facility] MPV 10.0 9.1 - 12.[address] [facility] RBC 2.37(L) 4.30 - 5.80 M/cumm [facility] MCV 101.7(H) 81.3 - 96.[address] [facility] MCH 33.3 27.1 - 33.[address] [facility] MCHC 32.8 32.3 - 35.7 g/dL [facility] RDW CV 14.3 11.1 - 14.9 % [facility] RDW SD 53.0(H) 35.7 - 48.[address] [facility] NRBC abs 0.00 0.00 - 0.01 K/cumm [facility] Blood 01/12/2025 5:03 AM CDT 01/12/2025 5:33 AM CDT Rosa Beltran NP LAB BLOOD ORDERABLES Final Re sult [facility] Department [place] [address] * eGFR (01/11/2025 6:25 PM CDT) eGFR [...] NP LAB BLOOD ORDERABLES Final Re sult [facility] [place] [address] * (ABNORMAL) Differential, auto (01/11/2025 6:25 PM CDT) Neutrophil abs 7.02(H) 1.50 - 6.50 K/cumm Imm gran abs 0.16(H) 0.00 - 0.10 K/cumm [facility] Lymphocyte abs 0.49(L) 0.80 - 3.30 K/cumm [facility] Monocyte abs 0.38 0.20 - 0.80 K/cumm [facility] Eosinophil abs 0.12 0.00 - 0.50 K/cumm [facility] Basophil abs 0.03 0.00 - 0.10 K/cumm [facility] Neutrophil pct 85.5 % [facility] Comment: Interpretive Data Percent cell count reference ranges are not reported, since discordance with absolute values may lead to misinterpretation of CBC data. Current Interpretive Data was last revised on 2017. Imm gran pct 2.0 % [facility] Comment: Interpretive Data Percent cell count reference ranges are not reported, since discordance with absolute values may lead to misinterpretation of CBC data. Current Interpretive Data was last revised on 2017. Lymphocyte pct 6.0 % [facility] Comment: Interpretive Data Percent cell count reference ranges are not reported, since discordance with absolute values may lead to misinterpretation of CBC data. Current Interpretive Data was last revised on 2017. Monocyte pct 4.6 % [facility] Comment: Interpretive Data Percent cell count reference ranges are not reported, since discordance with absolute values may lead to misinterpretation of CBC data. Current Interpretive Data was last revised on 2017. Eosinophil pct 1.5 % [facility] Comment: Interpretive Data Percent cell count reference ranges are not reported, since discordance with absolute values may lead to misinterpretation of CBC data. Current Interpretive Data was last revised on 2017. Basophil pct 0.4 % [facility] Comment: Interpretive Data Percent cell count reference ranges are not reported, since discordance with absolute values may lead to misinterpretation of CBC data. Current Interpretive Data was last revised on 2017. Blood 01/11/2025 6:25 PM CDT 01/11/2025 6:53 PM CDT Rosa Beltran NP LAB BLOOD ORDERABLES Final Re sult [facility] Department [place] [address] * (ABNORMAL) CBC with auto differential (01/11/2025 6:25 PM CDT) WBC 8.20 3.80 - 9.90 K/cumm Hgb 7.2(L) 13.0 - 17.5 g/dL [facility] Hct 22.2(L) 38.9 - 50.3 % [facility] Plt 301 150 - 400 K/cumm [facility] MPV 9.7 9.1 - 12.[address] [facility] RBC 2.13(L) 4.30 - 5.80 M/cumm [facility] MCV 104.2(H) 81.3 - 96.[address] [facility] MCH 33.8(H) 27.1 - 33.[address] [facility] MCHC 32.4 32.3 - 35.7 g/dL [facility] RDW CV 14.2 11.1 - 14.9 % [facility] RDW SD 53.7(H) 35.7 - 48.[address] [facility] NRBC abs 0.00 0.00 - 0.01 K/cumm [facility] Blood 01/11/2025 6:25 PM CDT 01/11/2025 6:53 PM CDT Rosa Beltran NP LAB BLOOD ORDERABLES Final Re sult Performing Organization Address [facility] de Phone Number [facility] [place] [place] [address] * Type and screen (01/11/2025 6:25 PM CDT) ABO Rh A Positive Becca, indirect Negative [facility] Blood 01/11/2025 6:25 PM CDT 01/11/2025 6:53 PM CDT Narrative [facility] - 01/11/2025 7:54 PM CDT Has the patient had Daratumumab or Isatuximab in the past 6 months?->Unknown Rosa Beltran NP LAB BLOOD BANK TEST ORDERABLE S Final Result Performing Organization Address [facility] de Phone Number [facility] [place] [place] [address] * Phosphorus (01/11/2025 6:25 PM CDT) Phosphorus, pl 4.1 2.3 - 4.5 mg/dL Blood 01/11/2025 6:25 PM CDT 01/11/2025 6:50 PM CDT Rosa Beltran NP LAB BLOOD ORDERABLES Final Re sult Performing Organization Address [facility] de Phone Number [facility] Department [place] [address] * (ABNORMAL) Magnesium (01/11/2025 6:25 PM CDT) Magnesium 4.2(H) 1.4 - 2.5 mg/dL Blood 01/11/2025 6:25 PM CDT 01/11/2025 6:50 PM CDT Rosa Beltran NP LAB BLOOD ORDERABLES Final Re sult Performing Organization Address [facility] Co de Phone Number [facility] Department [place] [address] * (ABNORMAL) Hepatic function panel (01/11/2025 6:25 PM CDT) Pathologist [facility] Bilirubin, total 0.4 0.1 - 1.2 mg/dL Bilirubin, direct <0.2 0.1 - 0.3 mg/dL [facility] Protein, pl 5.6(L) 6.5 - 8.5 g/dL [facility] Albumin 2.7(L) 3.5 - 5.0 g/dL [facility] Alk phos 61 40 - 130 Units/L [facility] ALT 63(H) 7 - 55 Units/L [facility] AST 41 10 - 50 Units/L [facility] Blood 01/11/2025 6:25 PM CDT 01/11/2025 6:50 PM CDT Parth Dalton MD LAB BLOOD ORDERABLES Final Re sult Performing Organization Address [facility] de Phone Number [facility] Department [place] [address] * (ABNORMAL) Basic metabolic panel (01/11/2025 6:25 PM CDT) Pathologist [facility] Sodium 141 135 - 145 mmol/L Potassium, pl 4.4 3.3 - 4.9 mmol/L [facility] Chloride 110 97 - 110 mmol/L [facility] CO2 25 22 - 32 mmol/L [facility] Anion gap 6 2 - 15 mmol/L [facility] BUN 47(H) 6 - 25 mg/dL [facility] Creatinine 1.23 0.80 - 1.30 mg/dL [facility] Glucose 136 70 - 199 mg/dL [facility] Comment: Interpretive Data Fasting glucose [...] ORDERABLES Final Re sult CYNTHIA MURPHY [facility] [place] [address] * XR Chest 1 View (01/11/2025 5:30 PM CDT) Anatomical Region Laterality Modality Body, Chest N/A Computed Radiogr aphy 01/12/2025 6:02 AM CDT Impressions 01/12/2025 6:02 AM CDT Comparison is made to prior chest radiograph dated 01/10/2025. Sternal plates are unchanged. A feeding tube courses caudally below the diaphragm, beyond the [id number]. Tip of right peripherally inserted central venous [...] courses caudally below the diaphragm, beyond the [id number]. Tip of right peripherally inserted central venous [...] DEVICE Final Result Performing Organization Address [facility] Co de Phone Number [facility] [place] [address] * POCT glucose (01/11/2025 7:52 AM CDT) Glucose, POC 110 70 - 199 mg/dL Blood 01/11/2025 7:52 AM CDT 01/11/2025 7:52 AM CDT Parth Dalton MD LAB POCT ORDERABLES - DEVICE Final Result Performing Organization Address [facility] de Phone Number [facility] [place] [address] * POCT glucose (01/11/2025 4:11 AM CDT) Glucose, POC 107 70 - 199 mg/dL Blood 01/11/2025 4:11 AM CDT 01/11/2025 4:11 AM CDT Parth Dalton MD LAB POCT ORDERABLES - DEVICE Final Result Performing Organization Address City/[facility] Co de Phone Number [facility] [place] [address] * POCT glucose (01/11/2025 12:26 AM CDT) Glucose, POC 108 70 - 199 mg/dL Blood 01/11/2025 12:2 6 AM CDT 01/11/2025 12:26 AM CDT Parth Dalton MD LAB POCT ORDERABLES - DEVICE Final Result Performing Organization Address City/[facility]/ZIP Co de Phone Number [facility] [place] [address] * (ABNORMAL) eGFR (01/10/2025 10:47 PM CDT) [...] LAB BLOOD ORDERABLES Final Re sult [facility] [place] [address] * (ABNORMAL) Differential, auto (01/10/2025 10:47 PM CDT) Neutrophil abs 7.14(H) 1.50 - 6.50 K/cumm Imm gran abs 0.32(H) 0.00 - 0.10 K/cumm [facility] Lymphocyte abs 0.75(L) 0.80 - 3.30 K/cumm [facility] Monocyte abs 0.61 0.20 - 0.80 K/cumm [facility] Eosinophil abs 0.17 0.00 - 0.50 K/cumm [facility] Basophil abs 0.04 0.00 - 0.10 K/cumm [facility] Neutrophil pct 79.1 % [facility] Comment: Interpretive Data Percent cell count reference ranges are not reported, since discordance with absolute values may lead to misinterpretation of CBC data. Current Interpretive Data was last revised on 2017. Imm gran pct 3.5 % [facility] Comment: Interpretive Data Percent cell count reference ranges are not reported, since discordance with absolute values may lead to misinterpretation of CBC data. Current Interpretive Data was last revised on 2017. Lymphocyte pct 8.3 % [facility] Comment: Interpretive Data Percent cell count reference ranges are not reported, since discordance with absolute values may lead to misinterpretation of CBC data. Current Interpretive Data was last revised on 2017. Monocyte pct 6.8 % [facility] Comment: Interpretive Data Percent cell count reference ranges are not reported, since discordance with absolute values may lead to misinterpretation of CBC data. Current Interpretive Data was last revised on 2017. Eosinophil pct 1.9 % [facility] Comment: Interpretive Data Percent cell count reference ranges are not reported, since discordance with absolute values may lead to misinterpretation of CBC data. Current Interpretive Data was last revised on 2017. Basophil pct 0.4 % [facility] Comment: Interpretive Data Percent cell count reference ranges are not reported, since discordance with absolute values may lead to misinterpretation of CBC data. Current Interpretive Data was last revised on 2017. Blood 01/10/2025 10:4 7 PM CDT 01/10/2025 11:23 PM CDT Rosa Beltran NP LAB BLOOD ORDERABLES Final Re sult [facility] [place] [address] * (ABNORMAL) CBC with auto differential (01/10/2025 10:47 PM CDT) [facility] WBC 9.03 3.80 - 9.90 K/cumm Hgb 8.2(L) 13.0 - 17.5 g/dL [facility] Hct 25.1(L) 38.9 - 50.3 % [facility] Plt 357 150 - 400 K/cumm [facility] MPV 9.8 9.1 - 12.[address] [facility] RBC 2.47(L) 4.30 - 5.80 M/cumm [facility] MCV 101.6(H) 81.3 - 96.[address] [facility] MCH 33.2 27.1 - 33.[address] [facility] MCHC 32.7 32.3 - 35.7 g/dL [facility] RDW CV 14.5 11.1 - 14.9 % [facility] RDW SD 53.6(H) 35.7 - 48.[address] [facility] NRBC abs 0.00 0.00 - 0.01 K/cumm [facility] Blood 01/10/2025 10:4 7 PM CDT 01/10/2025 11:23 PM CDT Rosa Beltran NET MOBILE DEVELOPER LAB BLOOD ORDERABLES Final Re sult Performing Organization Address [facility] de Phone Number [facility] Department [place] [address] * (ABNORMAL) Phosphorus (01/10/2025 10:47 PM CDT) [facility] Phosphorus, pl 5.5(H) 2.3 - 4.5 mg/dL Blood 01/10/2025 10:4 7 PM CDT 01/10/2025 11:23 PM CDT Rosa Beltran NET MOBILE DEVELOPER LAB BLOOD ORDERABLES Final Re sult Performing Organization Address City/[facility]/ZIP Co de Phone Number [facility] Department [place] [address] * Magnesium (01/10/2025 10:47 PM CDT) Pathologist [facility] Magnesium 2.3 1.4 - 2.5 mg/dL Blood 01/10/2025 10:4 7 PM CDT 01/10/2025 11:23 PM CDT Rosa Beltran NP LAB BLOOD ORDERABLES Final [facility] Performing Organization Address City/[facility] Co de Phone Number [facility] Department [place] [address] * (ABNORMAL) Basic metabolic panel (01/10/2025 10:47 PM CDT) Pathologist [facility] Sodium 143 135 - 145 mmol/L Potassium, pl 4.7 3.3 - 4.9 mmol/L [facility] Chloride 106 97 - 110 mmol/L [facility] CO2 28 22 - 32 mmol/L [facility] Anion gap 9 2 - 15 mmol/L [facility] BUN 57(H) 6 - 25 mg/dL [facility] Creatinine 1.61(H) 0.80 - 1.30 mg/dL [facility] Glucose 106 70 - 199 mg/dL [facility] Comment: Interpretive Data Fasting glucose [...] 2022. Calcium 9.6 8.5 - 10.3 mg/dL [facility] Blood 01/10/2025 10:4 7 PM CDT 01/10/2025 11:23 PM CDT Rosa Beltran NP LAB BLOOD ORDERABLES Final Re sult Performing Organization Address [facility] Co de Phone Number [facility] [address] * POCT glucose (01/10/2025 8:17 PM CDT) Glucose, POC 106 70 - 199 mg/dL Blood 01/10/2025 8:17 PM CDT 01/10/2025 8:17 PM CDT Parth Dalton MD LAB POCT ORDERABLES - DEVICE Final Result Performing Organization Address [facility] de Phone Number [facility] [address] * POCT glucose (01/10/2025 4:49 PM CDT) Glucose, POC 146 70 - 199 mg/dL Blood 01/10/2025 4:49 PM CDT 01/10/2025 4:49 PM CDT Parth Dalton MD LAB POCT ORDERABLES - DEVICE Final Result Performing Organization Address [facility] de Phone Number [facility] [place] [address] * FL Modified Barium Swallow W Video [...] by: Axel Jacob M.D. us Marci Rater NET MOBILE DEVELOPER IMG FLUOROSCOPY PROCEDURES Final Result * ENGINEERING TEAM SUPERVISOR Evaluate and Treat (VFSS) (01/10/2025 3:43 PM CDT) Narrative Katina Loya, ENGINEERING TEAM SUPERVISOR - 01/10/2025 3:43 PM CDT Katina Loya, [...] regular liquids General Information Megan Titus 01/10/25 ENGINEERING TEAM SUPERVISOR Received On: 01/10/25 General Observations: alert, cooperative. [...] Diet Solids Recommendation: Regular Diet Liquids Recommendations: [place] thick Recommended Form of Medications: As tolerated [...] at 90 degrees. Consistencies Administered: Thin liquids, [place] thickened liquids, Purees, Solids Administered consistencies contain barium product. Thin Liquids: Laryngeal Penetration: Present Aspiration Present: Yes Timing: During, After Amount: Trace Response to aspiration: None Penetration Aspiration Scale-Thin: 8-Material enters the airway, passes below the vocal folds and no effort is made to eject [place] Thickened Liquids: Laryngeal Penetration: None Aspiration Present: No Penetration Aspiration Scale-[place]: 1-Material does not enter airway Purees: Laryngeal [...] had appropriate questions which were answered. Plan ENGINEERING TEAM SUPERVISOR Frequency of Services during current admission: 1-2x/wk ENGINEERING TEAM SUPERVISOR Recommendation (Add'l Services): (may not require ENGINEERING TEAM SUPERVISOR at d/c) Next Visit Plan: treatment/therapy Additional Referrals: Discharge Summary Statement If this is the last swallow therapy visit, this serves as the discharge summary. Marci Rater NET MOBILE DEVELOPER ENGINEERING TEAM SUPERVISOR ORDERABLES Final Result * XR Chest 1 [...] the hemidiaphragm and terminates out of the [id number]. Stable trace left apical pneumothorax. No definitive [...] it. Electronically signed by: Magnus Farah M.D. [facility] 01/10/2025 3:15 PM CDT EXAMINATION: 1 view [...] the hemidiaphragm and terminates out of the [id number]. Stable trace left apical pneumothorax. No definitive [...] signed by: Magnus Farah M.D. Marsha Villarreal NET MOBILE DEVELOPER IMG XR PROCEDURES Final Resul t * POCT glucose (01/10/2025 12:46 PM CDT) Glucose, POC 103 70 - 199 mg/dL Blood 01/10/2025 12:4 6 PM CDT 01/10/2025 12:46 PM CDT Parth Dalton MD LAB POCT ORDERABLES - DEVICE Final Result Performing Organization Address [facility] Co de Phone Number [facility] [place] [address] * POCT glucose (01/10/2025 8:05 AM CDT) Glucose, POC 108 70 - 199 mg/dL Blood 01/10/2025 8:05 AM CDT 01/10/2025 8:05 AM CDT Parth Dalton MD LAB POCT ORDERABLES - DEVICE Final Result Performing Organization Address [facility] de Phone Number [facility] [place] [address] * POCT glucose (01/10/2025 4:33 AM CDT) Glucose, POC 106 70 - 199 mg/dL Blood 01/10/2025 4:33 AM CDT 01/10/2025 4:33 AM CDT Parth Dalton MD LAB POCT ORDERABLES - DEVICE Final Result Performing Organization Address [facility] de Phone Number [facility] [place] [address] * (ABNORMAL) POCT glucose (01/10/2025 4:31 AM CDT) Glucose, POC 65(L) 70 - 199 mg/dL Blood 01/10/2025 4:31 AM CDT 01/10/2025 4:31 AM CDT us Parth Dalton MD LAB POCT ORDERABLES - DEVICE Final Result Performing Organization Address [facility] Co de Phone Number [facility] [place] [address] * POCT glucose (01/10/2025 12:44 AM CDT) Glucose, POC 138 70 - 199 mg/dL Blood 01/10/2025 12:4 4 AM CDT 01/10/2025 12:44 AM CDT us Parth Dalton MD LAB POCT ORDERABLES - DEVICE Final Result Performing Organization Address [facility] de Phone Number [facility] [place] [address] * (ABNORMAL) POCT glucose (01/10/2025 12:25 AM CDT) Glucose, POC 56(L) 70 - 199 mg/dL Blood 01/10/2025 12:2 5 AM CDT 01/10/2025 12:25 AM CDT Parth Dalton MD LAB POCT ORDERABLES - DEVICE Final Result Performing Organization Address City/[facility] [place] [address] * (ABNORMAL) POCT glucose (01/09/2025 11:51 PM CDT) Glucose, POC 60(L) 70 - 199 mg/dL Blood 01/09/2025 11:5 1 PM CDT 01/09/2025 11:51 PM CDT Parth Dalton MD LAB POCT ORDERABLES - DEVICE Final Result Performing Organization Address [facility] Co de Phone Number [facility] [place] [address] * (ABNORMAL) eGFR (01/09/2025 9:03 PM CDT) [...] ORDERABLES Final Re sult Performing Organization Address City/[facility]/ZIP Co de Phone Number [facility] [place] [address] * (ABNORMAL) Differential, auto (01/09/2025 9:03 PM CDT) Neutrophil abs 6.18 1.50 - 6.50 K/cumm Imm gran abs 0.53(H) 0.00 - 0.10 K/cumm [facility] Lymphocyte abs 0.77(L) 0.80 - 3.30 K/cumm [facility] Monocyte abs 0.58 0.20 - 0.80 K/cumm [facility] Eosinophil abs 0.25 0.00 - 0.50 K/cumm [facility] Basophil abs 0.03 0.00 - 0.10 K/cumm [facility] Neutrophil pct 74.0 % [facility] Comment: Interpretive Data Percent cell count reference ranges are not reported, since discordance with absolute values may lead to misinterpretation of CBC data. Current Interpretive Data was last revised on 2017. Imm gran pct 6.4 % [facility] Comment: Interpretive Data Percent cell count reference ranges are not reported, since discordance with absolute values may lead to misinterpretation of CBC data. Current Interpretive Data was last revised on 2017. Lymphocyte pct 9.2 % [facility] Comment: Interpretive Data Percent cell count reference ranges are not reported, since discordance with absolute values may lead to misinterpretation of CBC data. Current Interpretive Data was last revised on 2017. Monocyte pct 7.0 % [facility] Comment: Interpretive Data Percent cell count reference ranges are not reported, since discordance with absolute values may lead to misinterpretation of CBC data. Current Interpretive Data was last revised on 2017. Eosinophil pct 3.0 % [facility] Comment: Interpretive Data Percent cell count reference ranges are not reported, since discordance with absolute values may lead to misinterpretation of CBC data. Current Interpretive Data was last revised on 2017. Basophil pct 0.4 % [facility] Comment: Interpretive Data Percent cell count reference ranges are not reported, since discordance with absolute values may lead to misinterpretation of CBC data. Current Interpretive Data was last revised on 2017. Blood 01/09/2025 9:03 PM CDT 01/09/2025 9:15 PM CDT Rosa Beltran NP LAB BLOOD ORDERABLES Final Re sult [facility] Department [place] [address] * (ABNORMAL) CBC with auto differential (01/09/2025 9:03 PM CDT) Pathologist [facility] WBC 8.34 3.80 - 9.90 K/cumm Hgb 8.5(L) 13.0 - 17.5 g/dL [facility] Hct 26.0(L) 38.9 - 50.3 % [facility] Plt 337 150 - 400 K/cumm [facility] MPV 9.5 9.1 - 12.[address] [facility] RBC 2.53(L) 4.30 - 5.80 M/cumm [facility] MCV 102.8(H) 81.3 - 96.[address] [facility] MCH 33.6(H) 27.1 - 33.[address] [facility] MCHC 32.7 32.3 - 35.7 g/dL [facility] RDW CV 14.7 11.1 - 14.9 % [facility] RDW SD 54.9(H) 35.7 - 48.[address] [facility] NRBC abs 0.03(H) 0.00 - 0.01 K/cumm [facility] Blood 01/09/2025 9:03 PM CDT 01/09/2025 9:15 PM CDT Rosa Beltran NET MOBILE DEVELOPER LAB BLOOD ORDERABLES Final Re sult Performing Organization Address City/[facility] Co de Phone Number [facility] Department [place] [address] * Phosphorus (01/09/2025 9:03 PM CDT) Pathologist [facility] Phosphorus, pl 4.5 2.3 - 4.5 mg/dL Blood 01/09/2025 9:03 PM CDT 01/09/2025 9:15 PM CDT [facility] [employer] NET MOBILE DEVELOPER LAB BLOOD ORDERABLES Final Re sult [facility] Department [place] [address] * Magnesium (01/09/2025 9:03 PM CDT) [facility] Magnesium 2.1 1.4 - 2.5 mg/dL Blood 01/09/2025 9:03 PM CDT 01/09/2025 9:15 PM CDT Rosa Beltran NET MOBILE DEVELOPER LAB BLOOD ORDERABLES Final Re sult [facility] Department [place] [address] * (ABNORMAL) Basic metabolic panel (01/09/2025 9:03 PM CDT) [facility] Sodium 145 135 - 145 mmol/L Potassium, pl 4.5 3.3 - 4.9 mmol/L [facility] Chloride 108 97 - 110 mmol/L [facility] CO2 28 22 - 32 mmol/L [facility] Anion gap 9 2 - 15 mmol/L [facility] BUN 56(H) 6 - 25 mg/dL [facility] Creatinine 1.61(H) 0.80 - 1.30 mg/dL [facility] Glucose 116 70 - 199 mg/dL [facility] Comment: Interpretive Data Fasting glucose [...] 2022. Calcium 9.9 8.5 - 10.3 mg/dL [facility] Blood 01/09/2025 9:03 PM CDT 01/09/2025 9:15 PM CDT Rosa Beltran NP LAB BLOOD ORDERABLES Final Re sult [facility] [place] [address] * POCT glucose (01/09/2025 8:21 PM CDT) Glucose, POC 87 70 - 199 mg/dL Blood 01/09/2025 8:21 PM CDT 01/09/2025 8:21 PM CDT Parth Dalton MD LAB POCT ORDERABLES - DEVICE Final Result Performing Organization Address [facility] Co de Phone Number [facility] MUR[facility] Fernanda [facility] Department [place] [address] * XR Chest 1 View (01/09/2025 5:44 [...] signed by: Jan Myers M.D. Gloria Ledezma NET MOBILE DEVELOPER IMG XR PROCEDURES Raquel l Result * Potassium, whole blood (01/09/2025 5:26 PM CDT) [facility] Potassium, bld 4.6 3.3 - 4.9 mmol/L Blood 01/09/2025 5:26 PM CDT 01/09/2025 5:34 PM CDT Jyotsna Salazar NP LAB BLOOD ORDERABLES Final Result Performing Organization Address [facility] Co de Phone Number [facility] [place] [address] * POCT glucose (01/09/2025 5:22 PM CDT) [facility] Glucose, POC 116 70 - 199 mg/dL Blood 01/09/2025 5:22 PM CDT 01/09/2025 5:22 PM CDT Parth Dalton MD LAB POCT ORDERABLES - DEVICE Final Result Performing Organization Address City/[facility] Co de Phone Number [facility] [place] [address] * POCT glucose (01/09/2025 1:00 PM CDT) Glucose, POC 105 70 - 199 mg/dL Blood 01/09/2025 1:00 PM CDT 01/09/2025 1:00 PM CDT Result [facility] Parth Dalton MD LAB POCT ORDERABLES - DEVICE Final Result Performing Organization Address [facility] Co de Phone Number [facility] [place] [address] * (ABNORMAL) Protime-INR (01/09/2025 9:38 AM CDT) PT 14.7(H) 10.2 - 13.5 sec INR 1.31(H) 0.90 - 1.[address] [facility] Comment: Interpretive data Oral anticoagulant therapeutic ranges: Venous thromboembolism prophylaxis or treatment: 2.0-3.0 CARDIOLOGY Standard range: 2.0-3.0 High-intensity range: 2.5-3.5 Refer to indication-specific guidelines for appropriate target ranges for prosthetic heart valve replacement. Current interpretive data was last revised on 2019. Blood 01/09/2025 9:38 AM CDT 01/09/2025 10:52 AM CDT Narrative [facility] - 01/09/2025 11:01 AM CDT Baseline prior to apixaban initiation. Gloria Ledezma NET MOBILE DEVELOPER LAB BLOOD ORDERABLES F inal Result Performing Organization Address [facility] Co de Phone Number [facility] [place] [address] * POCT glucose (01/09/2025 8:16 AM CDT) Glucose, POC 81 70 - 199 mg/dL Blood 01/09/2025 8:16 AM CDT 01/09/2025 8:16 AM CDT Parth Dalton MD LAB POCT ORDERABLES - DEVICE Final Result Performing Organization Address [facility] Co de Phone Number [facility] [place] [address] * XR Chest 1 View (01/09/2025 7:44 AM CDT) Anatomical Region Laterality Modality Body, Chest N/A Computed Radiogr aphy 01/09/2025 10:1 0 AM CDT Impressions 01/09/2025 10:25 AM CDT Comparison is made with multiple prior exams, most recently radiograph dated 01/08/2025. Tracheostomy in place. Feeding tube projects over the stomach, distal tip is out of the [id number]. Right upper extremity peripheral inserted central venous [...] stomach, distal tip is out of the [id number]. Right upper extremity peripheral inserted central venous [...] signed by: Lupe Garland M.D. Gloria Ledezma NET MOBILE DEVELOPER IMG XR PROCEDURES Raquel l Result * Infection Prevention Blanche auris PCR, surveillance Axilla/Groin (01/09/2025 5:56 AM CDT) Pathologist [facility] Blanche auris DNA Not Detected Not Detected [facility] Comment: Interpretive Data Testing performed by [facility] using the Daquan flaquita [employer] Blanche auris assay. This assay detects DNA from Blanche auris using Real-Time PCR. This assay is laboratory developed and is not cleared by the [facility] Food and Drug Administration. The performance characteristics have been verified by the [facility]. Axilla/Groin 01/09/2025 5:56 AM CDT 01/09/2025 7:32 AM CDT Narrative [facility] - 01/09/2025 2:13 PM CDT Order placed by [facility] due to ring surveillance. Instant Order Generic Provider LAB MICROBIOLOGY - GENERAL ORDERABLES Final Result [facility] [place] [address] [facility] * Potassium, whole blood (01/09/2025 4:36 AM CDT) [facility] Potassium, bld 3.7 3.3 - 4.9 mmol/L Blood 01/09/2025 4:36 AM CDT 01/09/2025 5:34 AM CDT Jyotsna Salazar NET MOBILE DEVELOPER LAB BLOOD ORDERABLES Final Result [facility] [place] [address] * POCT glucose (01/09/2025 4:36 AM CDT) Glucose, POC 98 70 - 199 mg/dL Blood 01/09/2025 4:36 AM CDT 01/09/2025 4:36 AM CDT us Parth Dalton MD LAB POCT ORDERABLES - DEVICE Final Result Performing Organization Address City/[facility] Co de Phone Number [facility] [place] [address] * (ABNORMAL) eGFR (01/09/2025 4:31 AM CDT) [facility] eGFR 43(L) >=60 mL/min/1. 73 m2 Comment: [...] BLOOD ORDERABLES Final Result Performing Organization Address City/[facility]/ZIP Co de Phone Number [facility] Department [place] [address] * (ABNORMAL) Basic metabolic panel (01/09/2025 4:31 AM CDT) Sodium 144 135 - 145 mmol/L Potassium, pl 3.8 3.3 - 4.9 mmol/L [facility] Chloride 106 97 - 110 mmol/L [facility] CO2 29 22 - 32 mmol/L [facility] Anion gap 9 2 - 15 mmol/L [facility] BUN 55(H) 6 - 25 mg/dL [facility] Creatinine 1.65(H) 0.80 - 1.30 mg/dL [facility] Glucose 91 70 - 199 mg/dL [facility] Comment: Interpretive Data Fasting glucose [...] 2022. Calcium 9.7 8.5 - 10.3 mg/dL [facility] Blood 01/09/2025 4:31 AM CDT 01/09/2025 5:43 AM CDT us Leisa Ling NP LAB BLOOD ORDERABLES Final Result Performing Organization Address [facility]/ZIP Co de Phone Number [facility] [place] [address] * POCT glucose (01/09/2025 12:27 AM CDT) Glucose, POC 87 70 - 199 mg/dL Blood 01/09/2025 12:2 7 AM CDT 01/09/2025 12:27 AM CDT us Parth Dalton MD LAB POCT ORDERABLES - DEVICE Final Result Performing Organization Address [facility]/ZIP Co de Phone Number [facility] Department [place] [address] * Potassium, whole blood (01/08/2025 8:15 PM CDT) [facility] Potassium, bld 4.1 3.3 - 4.9 mmol/L Blood 01/08/2025 8:15 PM CDT 01/08/2025 8:24 PM CDT us Jyotsna Salazar NET MOBILE DEVELOPER LAB BLOOD ORDERABLES Final Result [facility] [place] [address] * POCT glucose (01/08/2025 8:12 PM CDT) [facility] Glucose, POC 98 70 - 199 mg/dL Blood 01/08/2025 8:12 PM CDT 01/08/2025 8:12 PM CDT us Parth Dalton MD LAB POCT ORDERABLES - DEVICE Final Result Performing Organization Address City/[facility] Co de Phone Number [facility] [place] [address] * (ABNORMAL) eGFR (01/08/2025 8:11 PM CDT) [facility] eGFR 47(L) >=60 mL/min/1. 73 m2 Comment: [...] NP LAB BLOOD ORDERABLES Final Re sult [facility] [place] [address] * (ABNORMAL) Differential, auto (01/08/2025 8:11 PM CDT) Neutrophil abs 5.80 1.50 - 6.50 K/cumm Imm gran abs 0.44(H) 0.00 - 0.10 K/cumm [facility] Lymphocyte abs 0.78(L) 0.80 - 3.30 K/cumm [facility] Monocyte abs 0.76 0.20 - 0.80 K/cumm [facility] Eosinophil abs 0.23 0.00 - 0.50 K/cumm [facility] Basophil abs 0.03 0.00 - 0.10 K/cumm [facility] Neutrophil pct 72.0 % [facility] Comment: Interpretive Data Percent cell count reference ranges are not reported, since discordance with absolute values may lead to misinterpretation of CBC data. Current Interpretive Data was last revised on 2017. Imm gran pct 5.5 % [facility] Comment: Interpretive Data Percent cell count reference ranges are not reported, since discordance with absolute values may lead to misinterpretation of CBC data. Current Interpretive Data was last revised on 2017. Lymphocyte pct 9.7 % [facility] Comment: Interpretive Data Percent cell count reference ranges are not reported, since discordance with absolute values may lead to misinterpretation of CBC data. Current Interpretive Data was last revised on 2017. Monocyte pct 9.5 % [facility] Comment: Interpretive Data Percent cell count reference ranges are not reported, since discordance with absolute values may lead to misinterpretation of CBC data. Current Interpretive Data was last revised on 2017. Eosinophil pct 2.9 % [facility] Comment: Interpretive Data Percent cell count reference ranges are not reported, since discordance with absolute values may lead to misinterpretation of CBC data. Current Interpretive Data was last revised on 2017. Basophil pct 0.4 % [facility] Comment: Interpretive Data Percent cell count reference ranges are not reported, since discordance with absolute values may lead to misinterpretation of CBC data. Current Interpretive Data was last revised on 2017. Blood 01/08/2025 8:11 PM CDT 01/08/2025 8:28 PM CDT Rosa Beltran NP LAB BLOOD ORDERABLES Final Re sult [facility] Department [place] [address] * (ABNORMAL) CBC with auto differential (01/08/2025 8:11 PM CDT) WBC 8.04 3.80 - 9.90 K/cumm Hgb 8.6(L) 13.0 - 17.5 g/dL [facility] Hct 26.2(L) 38.9 - 50.3 % [facility] Plt 325 150 - 400 K/cumm [facility] MPV 9.2 9.1 - 12.[address] [facility] RBC 2.57(L) 4.30 - 5.80 M/cumm [facility] MCV 101.9(H) 81.3 - 96.[address] [facility] MCH 33.5(H) 27.1 - 33.[address] [facility] MCHC 32.8 32.3 - 35.7 g/dL [facility] RDW CV 15.0(H) 11.1 - 14.9 % [facility] RDW SD 56.0(H) 35.7 - 48.[address] [facility] NRBC abs 0.03(H) 0.00 - 0.01 K/cumm [facility] Blood 01/08/2025 8:11 PM CDT 01/08/2025 8:28 PM CDT Rosa Beltran LAB BLOOD ORDERABLES Final Re sult Performing Organization Address [facility] [place] [address] * Type and screen (01/08/2025 8:11 PM CDT) Pathologist [facility] Becca, indirect Negative ABO Rh A Positive [facility] Blood 01/08/2025 8:11 PM CDT 01/08/2025 8:34 PM CDT Narrative [facility] - 01/08/2025 9:31 PM CDT Has the patient had Daratumumab or Isatuximab in the past 6 months?->Unknown Rosa Beltran LAB BLOOD BANK TEST ORDERABLE S Final Result Performing Organization Address [facility] [place] [address] * (ABNORMAL) Phosphorus (01/08/2025 8:11 PM CDT) Pathologist [facility] Phosphorus, pl 4.6(H) 2.3 - 4.5 mg/dL Blood 01/08/2025 8:11 PM CDT 01/08/2025 8:26 PM CDT Roas Beltran [employer]EL[employer] LAB BLOOD ORDERABLES Final Re sult Performing Organization Address [facility] [place] [address] * Magnesium (01/08/2025 8:11 PM CDT) Pathologist [facility] Magnesium 2.1 1.4 - 2.5 mg/dL Blood 01/08/2025 8:11 PM CDT 01/08/2025 8:26 PM CDT Rosa Beltran NP LAB BLOOD ORDERABLES Final Re sult Performing Organization Address [facility] Co de Phone Number [facility] [place] [place] [address] * (ABNORMAL) Hepatic function panel (01/08/2025 8:11 PM CDT) Bilirubin, total 0.5 0.1 - 1.2 mg/dL Bilirubin, direct 0.2 0.1 - 0.3 mg/dL [facility] Protein, pl 6.5 6.5 - 8.5 g/dL [facility] Albumin 3.2(L) 3.5 - 5.0 g/dL [facility] Alk phos 54 40 - 130 Units/L [facility] ALT 73(H) 7 - 55 Units/L [facility] AST 52(H) 10 - 50 Units/L [facility] Blood 01/08/2025 8:11 PM CDT 01/08/2025 8:26 PM CDT Parth Dalton MD LAB BLOOD ORDERABLES Final Re sult Performing Organization Address [facility] Co de Phone Number [facility] [place] [place] [address] * (ABNORMAL) Basic metabolic panel (01/08/2025 8:11 PM CDT) Sodium 150(H) 135 - 145 mmol/L Potassium, pl 4.3 3.3 - 4.9 mmol/L [facility] Chloride 111(H) 97 - 110 mmol/L [facility] CO2 27 22 - 32 mmol/L [facility] Anion gap 12 2 - 15 mmol/L [facility] BUN 52(H) 6 - 25 mg/dL [facility] Creatinine 1.55(H) 0.80 - 1.30 mg/dL [facility] Glucose 97 70 - 199 mg/dL [facility] Comment: Interpretive Data Fasting glucose [...] 2022. Calcium 9.7 8.5 - 10.3 mg/dL [facility] Blood 01/08/2025 8:11 PM CDT 01/08/2025 8:26 PM CDT Rosa Beltran NP LAB BLOOD ORDERABLES Final Re sult [facility] Department [place] [address] * POCT glucose (01/08/2025 4:11 PM CDT) [facility] Signature Glucose, POC 124 70 - 199 mg/dL Blood 01/08/2025 4:11 PM CDT 01/08/2025 4:11 PM CDT Parth Dalton MD LAB POCT ORDERABLES - DEVICE Final Result Performing Organization Address City/[facility]/ZIP Co de Phone Number [facility] Department [place] [address] * XR Chest 1 View (01/08/2025 1:18 [...] signed by: Mikey Bender M.D. Gloria Gauthier Mccaulley NET MOBILE DEVELOPER IMG XR PROCEDURES Edit ed Result - Final * POCT glucose (01/08/2025 11:59 AM CDT) Glucose, POC 120 70 - 199 mg/dL Blood 01/08/2025 11:5 9 AM CDT 01/08/2025 11:59 AM CDT us Parth Dalton MD LAB POCT ORDERABLES - DEVICE Final Result Performing Organization Address [facility] de Phone Number [facility] [place] [address] * POCT glucose (01/08/2025 7:34 AM CDT) Glucose, POC 75 70 - 199 mg/dL Blood 01/08/2025 7:34 AM CDT 01/08/2025 7:34 AM CDT us Parth Dalton MD LAB POCT ORDERABLES - DEVICE Final Result Performing Organization Address [facility] de Phone Number [facility] [place] [address] * POCT glucose (01/08/2025 4:18 AM CDT) Glucose, POC 95 70 - 199 mg/dL Blood 01/08/2025 4:18 AM CDT 01/08/2025 4:18 AM CDT us Parth Dalton MD LAB POCT ORDERABLES - DEVICE Final Result Performing Organization Address [facility] de Phone Number [facility] [place] [address] * POCT glucose (01/07/2025 11:30 PM CDT) Glucose, POC 94 70 - 199 mg/dL Blood 01/07/2025 11:3 0 PM CDT 01/07/2025 11:30 PM CDT us Parth Dalton MD LAB POCT ORDERABLES - DEVICE Final Result Performing Organization Address [facility] de Phone Number [facility] [place] [address] * (ABNORMAL) eGFR (01/07/2025 8:57 PM CDT) Pathologist [facility] eGFR 43(L) >=60 mL/min/1. 73 m2 [...] ORDERABLES Final Re sult Performing Organization Address City/[facility] Co de Phone Number [facility] [place] [address] * (ABNORMAL) Differential, auto (01/07/2025 8:57 PM CDT) Pathologist [facility] Neutrophil abs 6.34 1.50 - 6.50 K/cumm Imm gran abs 0.46(H) 0.00 - 0.10 K/cumm [facility] Lymphocyte abs 0.85 0.80 - 3.30 K/cumm [facility] Monocyte abs 0.59 0.20 - 0.80 K/cumm [facility] Eosinophil abs 0.21 0.00 - 0.50 K/cumm [facility] Basophil abs 0.04 0.00 - 0.10 K/cumm [facility] Neutrophil pct 74.7 % [facility] Comment: Interpretive Data Percent cell count reference ranges are not reported, since discordance with absolute values may lead to misinterpretation of CBC data. Current Interpretive Data was last revised on 2017. Imm gran pct 5.4 % [facility] Comment: Interpretive Data Percent cell count reference ranges are not reported, since discordance with absolute values may lead to misinterpretation of CBC data. Current Interpretive Data was last revised on 2017. Lymphocyte pct 10.0 % [facility] Comment: Interpretive Data Percent cell count reference ranges are not reported, since discordance with absolute values may lead to misinterpretation of CBC data. Current Interpretive Data was last revised on 2017. Monocyte pct 6.9 % [facility] Comment: Interpretive Data Percent cell count reference ranges are not reported, since discordance with absolute values may lead to misinterpretation of CBC data. Current Interpretive Data was last revised on 2017. Eosinophil pct 2.5 % [facility] Comment: Interpretive Data Percent cell count reference ranges are not reported, since discordance with absolute values may lead to misinterpretation of CBC data. Current Interpretive Data was last revised on 2017. Basophil pct 0.5 % [facility] Comment: Interpretive Data Percent cell count reference ranges are not reported, since discordance with absolute values may lead to misinterpretation of CBC data. Current Interpretive Data was last revised on 2017. Blood 01/07/2025 8:57 PM CDT 01/07/2025 9:37 PM CDT Rosa Beltran NP LAB BLOOD ORDERABLES Final Re sult [facility] Department [place] [address] * (ABNORMAL) CBC with auto differential (01/07/2025 8:57 PM CDT) [facility] WBC 8.49 3.80 - 9.90 K/cumm Hgb 9.2(L) 13.0 - 17.5 g/dL [facility] Hct 27.9(L) 38.9 - 50.3 % [facility] Plt 345 150 - 400 K/cumm [facility] MPV 9.5 9.1 - 12.[address] [facility] RBC 2.71(L) 4.30 - 5.80 M/cumm [facility] MCV 103.0(H) 81.3 - 96.[address] [facility] MCH 33.9(H) 27.1 - 33.[address] [facility] MCHC 33.0 32.3 - 35.7 g/dL [facility] RDW CV 15.3(H) 11.1 - 14.9 % [facility] RDW SD 56.9(H) 35.7 - 48.[address] [facility] NRBC abs 0.04(H) 0.00 - 0.01 K/cumm [facility] Blood 01/07/2025 8:57 PM CDT 01/07/2025 9:37 PM CDT Rosa Beltran NET MOBILE DEVELOPER LAB BLOOD ORDERABLES Final Re sult Performing Organization Address City/[facility]/ZIP Co de Phone Number [facility] [place] [address] * (ABNORMAL) Phosphorus (01/07/2025 8:57 PM CDT) [facility] Phosphorus, pl 4.7(H) 2.3 - 4.5 mg/dL Blood 01/07/2025 8:57 PM CDT 01/07/2025 9:37 PM CDT Rosa Beltran NET MOBILE DEVELOPER LAB BLOOD ORDERABLES Final Re sult [facility] [place] [address] * Magnesium (01/07/2025 8:57 PM CDT) Pathologist [facility] Magnesium 2.2 1.4 - 2.5 mg/dL Blood 01/07/2025 8:57 PM CDT 01/07/2025 9:37 PM CDT us Rosa Beltran NP LAB BLOOD ORDERABLES Final Re sult [facility] Department [place] [address] * (ABNORMAL) Basic metabolic panel (01/07/2025 8:57 PM CDT) Pathologist [facility] Sodium 146(H) 135 - 145 mmol/L Potassium, pl 3.9 3.3 - 4.9 mmol/L [facility] Chloride 109 97 - 110 mmol/L [facility] CO2 26 22 - 32 mmol/L [facility] Anion gap 11 2 - 15 mmol/L [facility] BUN 56(H) 6 - 25 mg/dL [facility] Creatinine 1.67(H) 0.80 - 1.30 mg/dL [facility] Glucose 120 70 - 199 mg/dL [facility] Comment: Interpretive Data Fasting glucose [...] 2022. Calcium 9.8 8.5 - 10.3 mg/dL [facility] Blood 01/07/2025 8:57 PM CDT 01/07/2025 9:37 PM CDT us Rosa Beltran NP LAB BLOOD ORDERABLES Final Re sult Performing Organization Address [facility] Co de Phone Number [facility] [place] [address] * POCT glucose (01/07/2025 8:56 PM CDT) Glucose, POC 117 70 - 199 mg/dL Blood 01/07/2025 8:56 PM CDT 01/07/2025 8:56 PM CDT Parth Dalton MD LAB POCT ORDERABLES - DEVICE Final Result Performing Organization Address [facility] de Phone Number [facility] [place] [address] * POCT glucose (01/07/2025 7:47 PM CDT) Glucose, POC 96 70 - 199 mg/dL Blood 01/07/2025 7:47 PM CDT 01/07/2025 7:47 PM CDT Parth Dalton MD LAB POCT ORDERABLES - DEVICE Final Result Performing Organization Address [facility] Co de Phone Number [facility] [place] [address] * POCT glucose (01/07/2025 4:21 PM CDT) Glucose, POC 127 70 - 199 mg/dL Blood 01/07/2025 4:21 PM CDT 01/07/2025 4:21 PM CDT Parth Dalton MD LAB POCT ORDERABLES - DEVICE Final Result Performing Organization Address [facility] Co de Phone Number [facility] [place] [place] [address] * XR Abdomen Ap 1 Vw (01/07/2025 [...] signed by: Vani Sarmiento M.D. Gloriabrittnee Gauthier Mccaulley NET MOBILE DEVELOPER IMG XR PROCEDURES Raquel l Result * Infection Prevention Blanche auris PCR, surveillance Axilla/Groin (01/07/2025 2:25 PM CDT) Blanche auris DNA Not Detected Not Detected [facility] Comment: Interpretive Data Testing performed by [facility] using the Daquan flaquita 6800 Blanche auris assay. This assay detects DNA from Blanche auris using Real-Time PCR. This assay is laboratory developed and is not cleared by the [facility] Food and Drug Administration. The performance characteristics have been verified by the [facility]. Axilla/Groin 01/07/2025 2:25 PM CDT 01/07/2025 2:45 PM CDT Narrative [facility] - 01/07/2025 10:52 PM CDT Order placed by OPA due to ring surveillance. us Instant Order Generic Provider LAB MICROBIOLOGY - GENERAL ORDERABLES Final Result Performing Organization Address [facility] Co de Phone Number [facility] Department [place] [address] [facility] * Potassium, whole blood (01/07/2025 2:25 PM CDT) Potassium, bld 4.3 3.3 - 4.9 mmol/L Blood 01/07/2025 2:25 PM CDT 01/07/2025 2:44 PM CDT us Jyotsna Salazar NP LAB BLOOD ORDERABLES Final Result Performing Organization Address [facility] Co de Phone Number [facility] Department [place] [address] * POCT glucose (01/07/2025 12:03 PM CDT) Glucose, POC 131 70 - 199 mg/dL Blood 01/07/2025 12:0 3 PM CDT 01/07/2025 12:03 PM CDT us Parth Dalton MD LAB POCT ORDERABLES - DEVICE Final Result Performing Organization Address [facility] Co de Phone Number [facility] Department [place] [address] * POCT glucose (01/07/2025 7:34 AM CDT) Glucose, POC 147 70 - 199 mg/dL Blood 01/07/2025 7:34 AM CDT 01/07/2025 7:34 AM CDT Parth Dalton MD LAB POCT ORDERABLES - DEVICE Final Result [facility] [place] [address] * Blood culture Blood (01/07/2025 5:04 AM CDT) Report Final Report: No growth Blood 01/07/2025 5:04 AM CDT 01/07/2025 5:50 AM CDT Narrative [facility] - 01/11/2025 7:00 AM CDT Collection->Peripheral 1. [...] performance characteristics have been verified by the [facility]. For questions about this culture, contact the Microbiology Laboratory at [phone]. Interpretive data was last revised on 24. Rosa Beltran NP LAB MICROBIOLOGY - GENERAL OR DERABLES Final Result [facility] Department [place] [address] * POCT glucose (01/07/2025 4:41 AM CDT) Glucose, POC 117 70 - 199 mg/dL Blood 01/07/2025 4:41 AM CDT 01/07/2025 4:41 AM CDT Parth Dalton MD LAB POCT ORDERABLES - DEVICE Final Result Performing Organization Address [facility] Co de Phone Number [facility] [place] [address] * XR Chest 1 View (01/07/2025 4:32 [...] There is no interval change Dictated by: Jnae Rose M.D. The radiology attending physician has personally reviewed this study, and had reviewed and/or edited this written report and agrees with it. Electronically signed by: Meghan Rios M.D. Rosa Beltran NET MOBILE DEVELOPER IMG XR PROCEDURES Final Resul t * (ABNORMAL) Aerobic culture and gram stain Tracheal aspirate Tracheal (01/06/2025 11:41 PM CDT) Direct Specimen Exam Stain: Rare polymorphonuclear leukocytes seen. Few squamous epithelial cells seen. Few mixed bacterial katja seen on Gram stain. Report Final Report: Greater than or equal to 100,000 colonies/ml of Stenotrophomonas maltophilia Plus growth of clinically insignificant bacterial katja. (.) [facility] Organism STENOTROPHOMONAS MALTOPHILIA [facility] Organism PLUS GROWTH OF CLINICALLY INSIGNIFICANT KATJA. [facility] Tracheal aspirate (Tracheal) 01/06/2025 11:41 PM CDT 01/07/2025 1:31 AM CDT Narrative [facility] - 01/09/2025 2:45 PM CDT Testing performed by [facility] ([phone]) Specimens submitted from normally sterile body sites [...] DERABLES Final Result Performing Organization Address [facility] Co de Phone Number [facility] [place] [address] * Lactate, whole blood (01/06/2025 11:41 PM CDT) Lactate, bld 0.9 0.7 - 2.0 mmol/L Blood 01/06/2025 11:4 1 PM CDT 01/06/2025 11:49 PM CDT Rosa Beltran NP LAB BLOOD ORDERABLES Final Re sult Performing Organization Address [facility] de Phone Number [facility] [place] [address] * POCT glucose (01/06/2025 11:39 PM CDT) Glucose, POC 104 70 - 199 mg/dL Blood 01/06/2025 11:3 9 PM CDT 01/06/2025 11:39 PM CDT Parth Dalton MD LAB POCT ORDERABLES - DEVICE Final Result Performing Organization Address [facility] de Phone Number [facility] [place] [address] * POCT glucose (01/06/2025 9:12 PM CDT) Glucose, POC 104 70 - 199 mg/dL Blood 01/06/2025 9:12 PM CDT 01/06/2025 9:12 PM CDT Parth Dalton MD LAB POCT ORDERABLES - DEVICE Final Result Performing Organization Address [facility] Co de Phone Number [facility] [place] [address] * (ABNORMAL) eGFR (01/06/2025 9:07 PM CDT) [...] ORDERABLES Final Re sult Performing Organization Address City/[facility]/ZIP Co de Phone Number [facility] [place] [address] * (ABNORMAL) Differential, auto (01/06/2025 9:07 PM CDT) Neutrophil abs 4.73 1.50 - 6.50 K/cumm Imm gran abs 0.29(H) 0.00 - 0.10 K/cumm [facility] Lymphocyte abs 0.54(L) 0.80 - 3.30 K/cumm [facility] Monocyte abs 0.43 0.20 - 0.80 K/cumm [facility] Eosinophil abs 0.15 0.00 - 0.50 K/cumm [facility] Basophil abs 0.04 0.00 - 0.10 K/cumm [facility] Neutrophil pct 76.6 % [facility] Comment: Interpretive Data Percent cell count reference ranges are not reported, since discordance with absolute values may lead to misinterpretation of CBC data. Current Interpretive Data was last revised on 2017. Imm gran pct 4.7 % [facility] Comment: Interpretive Data Percent cell count reference ranges are not reported, since discordance with absolute values may lead to misinterpretation of CBC data. Current Interpretive Data was last revised on 2017. Lymphocyte pct 8.7 % [facility] Comment: Interpretive Data Percent cell count reference ranges are not reported, since discordance with absolute values may lead to misinterpretation of CBC data. Current Interpretive Data was last revised on 2017. Monocyte pct 7.0 % [facility] Comment: Interpretive Data Percent cell count reference ranges are not reported, since discordance with absolute values may lead to misinterpretation of CBC data. Current Interpretive Data was last revised on 2017. Eosinophil pct 2.4 % [facility] Comment: Interpretive Data Percent cell count reference ranges are not reported, since discordance with absolute values may lead to misinterpretation of CBC data. Current Interpretive Data was last revised on 2017. Basophil pct 0.6 % [facility] Comment: Interpretive Data Percent cell count reference ranges are not reported, since discordance with absolute values may lead to misinterpretation of CBC data. Current Interpretive Data was last revised on 2017. Blood 01/06/2025 9:07 PM CDT 01/06/2025 9:49 PM CDT Rosa Beltran NP LAB BLOOD ORDERABLES Final Re sult [facility] [place] [address] * (ABNORMAL) CBC with auto differential (01/06/2025 9:07 PM CDT) Pathologist [facility] WBC 6.18 3.80 - 9.90 K/cumm Hgb 11.3(L) 13.0 - 17.5 g/dL [facility] Hct 34.3(L) 38.9 - 50.3 % [facility] Plt 278 150 - 400 K/cumm [facility] MPV 9.4 9.1 - 12.[address] [facility] RBC 3.38(L) 4.30 - 5.80 M/cumm [facility] MCV 101.5(H) 81.3 - 96.[address] [facility] MCH 33.4(H) 27.1 - 33.[address] [facility] MCHC 32.9 32.3 - 35.7 g/dL [facility] RDW CV 15.1(H) 11.1 - 14.9 % [facility] RDW SD 57.0(H) 35.7 - 48.[address] [facility] NRBC abs 0.05(H) 0.00 - 0.01 K/cumm [facility] Blood 01/06/2025 9:07 PM CDT 01/06/2025 9:49 PM CDT Rosa Beltran NP LAB BLOOD ORDERABLES Final Re sult Performing Organization Address [facility] Co de Phone Number [facility] [place] [address] * Phosphorus (01/06/2025 9:07 PM CDT) [facility] Phosphorus, pl 3.9 2.3 - 4.5 mg/dL Blood 01/06/2025 9:07 PM CDT 01/06/2025 9:48 PM CDT Rosa Beltran NET MOBILE DEVELOPER LAB BLOOD ORDERABLES Final Re sult [facility] [place] [address] * Magnesium (01/06/2025 9:07 PM CDT) Pathologist [facility] Magnesium 2.5 1.4 - 2.5 mg/dL Blood 01/06/2025 9:07 PM CDT 01/06/2025 9:48 PM CDT Rosa Beltran NP LAB BLOOD ORDERABLES Final Re sult Performing Organization Address [facility] Co de Phone Number [facility] [place] [address] * (ABNORMAL) Basic metabolic panel (01/06/2025 9:07 PM CDT) Pathologist [facility] Sodium 144 135 - 145 mmol/L Potassium, pl 4.5 3.3 - 4.9 mmol/L [facility] Chloride 111(H) 97 - 110 mmol/L [facility] CO2 24 22 - 32 mmol/L [facility] Anion gap 9 2 - 15 mmol/L [facility] BUN 56(H) 6 - 25 mg/dL [facility] Creatinine 1.71(H) 0.80 - 1.30 mg/dL [facility] Glucose 104 70 - 199 mg/dL [facility] Comment: Interpretive Data Fasting glucose [...] 2022. Calcium 9.4 8.5 - 10.3 mg/dL [facility] Blood 01/06/2025 9:07 PM CDT 01/06/2025 9:48 PM CDT Rosa Beltran NP LAB BLOOD ORDERABLES Final Re sult Performing Organization Address [facility] Co de Phone Number [facility] [place] [place] [address] * POCT glucose (01/06/2025 4:12 PM CDT) Glucose, POC 94 70 - 199 mg/dL Blood 01/06/2025 4:12 PM CDT 01/06/2025 4:12 PM CDT Parth Dalton MD LAB POCT ORDERABLES - DEVICE Final Result Performing Organization Address [facility] de Phone Number [facility] [place] [place] [address] * POCT glucose (01/06/2025 12:07 PM CDT) Glucose, POC 89 70 - 199 mg/dL Blood 01/06/2025 12:0 7 PM CDT 01/06/2025 12:07 PM CDT Parth Dalton MD LAB POCT ORDERABLES - DEVICE Final Result Performing Organization Address [facility] de Phone Number [facility] [place] [address] * XR Chest 1 View (01/06/2025 8:25 [...] There is no interval change Dictated by: Jaen Rose M.D. The radiology attending physician has [...] signed by: Meghan Rios M.D. us Rosa eBltran NP IMG XR PROCEDURES Final Resul t [...] signed by: Keesha Parra M.D. Marci Prasad [employer]BI[employer] DEVELOPER IMG XR PROCEDURES Final Result * POCT glucose (01/06/2025 7:56 AM CDT) Glucose, POC 90 70 - 199 mg/dL Blood 01/06/2025 7:56 AM CDT 01/06/2025 7:56 AM CDT Parth Dalton MD LAB POCT ORDERABLES - DEVICE Final Result [facility] Department [place] [address] * POCT glucose (01/06/2025 1:39 AM CDT) Glucose, POC 97 70 - 199 mg/dL Blood 01/06/2025 1:39 AM CDT 01/06/2025 1:39 AM CDT Parth Dalton MD LAB POCT ORDERABLES - DEVICE Final Result Performing Organization Address [facility] Co de Phone Number [facility] [place] [address] * (ABNORMAL) eGFR (01/05/2025 10:01 PM CDT) [facility] eGFR 31(L) >=60 mL/min/1. 73 m2 Comment: [...] ORDERABLES Final Re sult Performing Organization Address City/[facility]/ZIP Co de Phone Number [facility] Department [place] [address] * (ABNORMAL) Differential, auto (01/05/2025 10:01 PM CDT) Neutrophil abs 5.80 1.50 - 6.50 K/cumm Imm gran abs 0.17(H) 0.00 - 0.10 K/cumm [facility] Lymphocyte abs 0.59(L) 0.80 - 3.30 K/cumm [facility] Monocyte abs 0.45 0.20 - 0.80 K/cumm [facility] Eosinophil abs 0.18 0.00 - 0.50 K/cumm [facility] Basophil abs 0.03 0.00 - 0.10 K/cumm [facility] Neutrophil pct 80.3 % [facility] Comment: Interpretive Data Percent cell count reference ranges are not reported, since discordance with absolute values may lead to misinterpretation of CBC data. Current Interpretive Data was last revised on 2017. Imm gran pct 2.4 % [facility] Comment: Interpretive Data Percent cell count reference ranges are not reported, since discordance with absolute values may lead to misinterpretation of CBC data. Current Interpretive Data was last revised on 2017. Lymphocyte pct 8.2 % [facility] Comment: Interpretive Data Percent cell count reference ranges are not reported, since discordance with absolute values may lead to misinterpretation of CBC data. Current Interpretive Data was last revised on 2017. Monocyte pct 6.2 % [facility] Comment: Interpretive Data Percent cell count reference ranges are not reported, since discordance with absolute values may lead to misinterpretation of CBC data. Current Interpretive Data was last revised on 2017. Eosinophil pct 2.5 % [facility] Comment: Interpretive Data Percent cell count reference ranges are not reported, since discordance with absolute values may lead to misinterpretation of CBC data. Current Interpretive Data was last revised on 2017. Basophil pct 0.4 % [facility] Comment: Interpretive Data Percent cell count reference ranges are not reported, since discordance with absolute values may lead to misinterpretation of CBC data. Current Interpretive Data was last revised on 2017. Blood 01/05/2025 10:0 1 PM CDT 01/05/2025 10:38 PM CDT us Rosa Beltran NP LAB BLOOD ORDERABLES Final Re sult Performing Organization Address City/[facility]/ZIP Co de Phone Number [facility] [place] [address] * (ABNORMAL) CBC with auto differential (01/05/2025 10:01 PM CDT) WBC 7.22 3.80 - 9.90 K/cumm Hgb 8.8(L) 13.0 - 17.5 g/dL [facility] Hct 27.1(L) 38.9 - 50.3 % [facility] Plt 302 150 - 400 K/cumm [facility] MPV 9.8 9.1 - 12.[address] [facility] RBC 2.65(L) 4.30 - 5.80 M/cumm [facility] MCV 102.3(H) 81.3 - 96.[address] [facility] MCH 33.2 27.1 - 33.[address] [facility] MCHC 32.5 32.3 - 35.7 g/dL [facility] RDW CV 15.3(H) 11.1 - 14.9 % [facility] RDW SD 57.2(H) 35.7 - 48.[address] [facility] NRBC abs 0.03(H) 0.00 - 0.01 K/cumm [facility] Blood 01/05/2025 10:0 1 PM CDT 01/05/2025 10:38 PM CDT Rosa Beltran NP LAB BLOOD ORDERABLES Final Re sult [facility] [place] [address] * Type and screen (01/05/2025 10:01 PM CDT) Becca, indirect Negative ABO Rh A Positive [facility] Blood 01/05/2025 10:0 1 PM CDT 01/05/2025 10:41 PM CDT Narrative [facility] - 01/06/2025 12:08 AM CDT Has the patient had Daratumumab or Isatuximab in the past 6 months?->Unknown Rosa Beltran LAB BLOOD BANK TEST ORDERABLE S Final Result Performing Organization Address [facility] de Phone Number [facility] [place] [address] * Phosphorus (01/05/2025 10:01 PM CDT) Phosphorus, pl 4.2 2.3 - 4.5 mg/dL Blood 01/05/2025 10:0 1 PM CDT 01/05/2025 10:38 PM CDT Rosa Beltran LAB BLOOD ORDERABLES Final Re sult Performing Organization Address [facility] de Phone Number [facility] [place] [address] * (ABNORMAL) Magnesium (01/05/2025 10:01 PM CDT) Pathologist [facility] Magnesium 2.7(H) 1.4 - 2.5 mg/dL Blood 01/05/2025 10:0 1 PM CDT 01/05/2025 10:38 PM CDT [facility] BLOOD ORDERABLES Final Re sult Performing Organization Address [facility] [place] [address] * (ABNORMAL) Hepatic function panel (01/05/2025 10:01 PM CDT) Bilirubin, total 0.4 0.1 - 1.2 mg/dL Bilirubin, direct <0.2 0.1 - 0.3 mg/dL [facility] Comment:Reviewed Protein, pl 6.1(L) 6.5 - 8.5 g/dL [facility] Albumin 3.2(L) 3.5 - 5.0 g/dL [facility] Alk phos 52 40 - 130 Units/L [facility] ALT 19 7 - 55 Units/L [facility] AST 32 10 - 50 Units/L [facility] Blood 01/05/2025 10:0 1 PM CDT 01/05/2025 10:38 PM CDT us Parth Dalton MD LAB BLOOD ORDERABLES Final Re sult [facility] [place] [address] * (ABNORMAL) Basic metabolic panel (01/05/2025 10:01 PM CDT) Sodium 143 135 - 145 mmol/L Potassium, pl 4.5 3.3 - 4.9 mmol/L [facility] Chloride 108 97 - 110 mmol/L [facility] CO2 23 22 - 32 mmol/L [facility] Anion gap 12 2 - 15 mmol/L [facility] BUN 63(H) 6 - 25 mg/dL [facility] Creatinine 2.19(H) 0.80 - 1.30 mg/dL [facility] Glucose 94 70 - 199 mg/dL [facility] Comment: Interpretive Data Fasting glucose [...] 2022. Calcium 9.1 8.5 - 10.3 mg/dL [facility] Blood 01/05/2025 10:0 1 PM CDT 01/05/2025 10:38 PM CDT Rosa Beltran NP LAB BLOOD ORDERABLES Final Re sult Performing Organization Address [facility] Co de Phone Number [facility] [place] [address] * POCT glucose (01/05/2025 7:48 PM CDT) Glucose, POC 85 70 - 199 mg/dL Blood 01/05/2025 7:48 PM CDT 01/05/2025 7:48 PM CDT Parth Dalton MD LAB POCT ORDERABLES - DEVICE Final Result Performing Organization Address [facility] Co de Phone Number [facility] [place] [address] * POCT glucose (01/05/2025 3:40 PM CDT) Glucose, POC 114 70 - 199 mg/dL Blood 01/05/2025 3:40 PM CDT 01/05/2025 3:40 PM CDT Parth Dalton MD LAB POCT ORDERABLES - DEVICE Final Result Performing Organization Address [facility] Co de Phone Number [facility] [place] [address] * Potassium, whole blood (01/05/2025 3:20 PM CDT) Potassium, bld 4.4 3.3 - 4.9 mmol/L Blood 01/05/2025 3:20 PM CDT 01/05/2025 3:37 PM CDT Jyotsna Salazar NP LAB BLOOD ORDERABLES Final Result Performing Organization Address City/[facility] Co de Phone Number [facility] [place] [address] * POCT glucose (01/05/2025 12:04 PM CDT) Glucose, POC 88 70 - 199 mg/dL Blood 01/05/2025 12:0 4 PM CDT 01/05/2025 12:04 PM CDT us Parth Dalton MD LAB POCT ORDERABLES - DEVICE Final Result Performing Organization Address City/[facility] [place] [address] * Potassium, whole blood (01/05/2025 10:29 AM CDT) [facility] Potassium, bld 3.6 3.3 - 4.9 mmol/L Blood 01/05/2025 10:2 9 AM CDT 01/05/2025 10:39 AM CDT us Jyotsna Salazar [employer]EL[employer] LAB BLOOD ORDERABLES Final Result Performing Organization Address City/[facility] [place] [address] * POCT glucose (01/05/2025 7:52 AM CDT) [facility] Glucose, POC 106 70 - 199 mg/dL Blood 01/05/2025 7:52 AM CDT 01/05/2025 7:52 AM CDT us Parth Dalton MD LAB POCT ORDERABLES - DEVICE Final Result Performing Organization Address City/[facility] Co de Phone Number [facility] [place] [address] * Potassium, whole blood (01/05/2025 5:09 AM CDT) Potassium, bld 3.5 3.3 - 4.9 mmol/L Blood 01/05/2025 5:09 AM CDT 01/05/2025 5:17 AM CDT Jyotsna Salazar [employer]EL[employer] LAB BLOOD ORDERABLES Final Result Performing Organization Address [facility] Co de Phone Number [facility] [place] [address] * POCT glucose (01/05/2025 5:07 AM CDT) Glucose, POC 99 70 - 199 mg/dL Blood 01/05/2025 5:07 AM CDT 01/05/2025 5:07 AM CDT Parth Dalton MD LAB POCT ORDERABLES - DEVICE Final Result Performing Organization Address [facility] de Phone Number [facility] [place] [address] * POCT glucose (01/04/2025 11:36 PM CDT) Pathologist [facility] Glucose, POC 96 70 - 199 mg/dL Blood 01/04/2025 11:3 6 PM CDT 01/04/2025 11:36 PM CDT Parth Dalton MD LAB POCT ORDERABLES - DEVICE Final Result Performing Organization Address [facility] de Phone Number [facility] [place] [address] * XR Chest 1 View (01/04/2025 11:12 [...] by: Vasquez Yusuf M.D. us Jyotsna Salazar [employer]BILE DEVELOPER IMG XR PROCEDURES Final Re sult * [...] NP LAB BLOOD ORDERABLES Final Re sult [facility] [place] [address] * (ABNORMAL) Differential, auto (01/04/2025 9:31 PM CDT) Pathologist [facility] Neutrophil abs 5.47 1.50 - 6.50 K/cumm Imm gran abs 0.10 0.00 - 0.10 K/cumm [facility] Lymphocyte abs 0.28(L) 0.80 - 3.30 K/cumm [facility] Monocyte abs 0.24 0.20 - 0.80 K/cumm [facility] Eosinophil abs 0.12 0.00 - 0.50 K/cumm [facility] Basophil abs 0.02 0.00 - 0.10 K/cumm [facility] Neutrophil pct 87.8 % [facility] Comment: Interpretive Data Percent cell count reference ranges are not reported, since discordance with absolute values may lead to misinterpretation of CBC data. Current Interpretive Data was last revised on 2017. Imm gran pct 1.6 % [facility] Comment: Interpretive Data Percent cell count reference ranges are not reported, since discordance with absolute values may lead to misinterpretation of CBC data. Current Interpretive Data was last revised on 2017. Lymphocyte pct 4.5 % [facility] Comment: Interpretive Data Percent cell count reference ranges are not reported, since discordance with absolute values may lead to misinterpretation of CBC data. Current Interpretive Data was last revised on 2017. Monocyte pct 3.9 % [facility] Comment: Interpretive Data Percent cell count reference ranges are not reported, since discordance with absolute values may lead to misinterpretation of CBC data. Current Interpretive Data was last revised on 2017. Eosinophil pct 1.9 % [facility] Comment: Interpretive Data Percent cell count reference ranges are not reported, since discordance with absolute values may lead to misinterpretation of CBC data. Current Interpretive Data was last revised on 2017. Basophil pct 0.3 % [facility] Comment: Interpretive Data Percent cell count reference ranges are not reported, since discordance with absolute values may lead to misinterpretation of CBC data. Current Interpretive Data was last revised on 2017. Blood 01/04/2025 9:31 PM CDT 01/04/2025 10:33 PM CDT Rosa Beltran NP LAB BLOOD ORDERABLES Final Re sult [facility] [place] [address] * (ABNORMAL) CBC with auto differential (01/04/2025 9:31 PM CDT) WBC 6.23 3.80 - 9.90 K/cumm Hgb 8.4(L) 13.0 - 17.5 g/dL [facility] Hct 25.1(L) 38.9 - 50.3 % [facility] Plt 263 150 - 400 K/cumm [facility] MPV 10.4 9.1 - 12.[address] [facility] RBC 2.49(L) 4.30 - 5.80 M/cumm [facility] MCV 100.8(H) 81.3 - 96.[address] [facility] MCH 33.7(H) 27.1 - 33.[address] [facility] MCHC 33.5 32.3 - 35.7 g/dL [facility] RDW CV 15.0(H) 11.1 - 14.9 % [facility] RDW SD 55.5(H) 35.7 - 48.[address] [facility] NRBC abs 0.03(H) 0.00 - 0.01 K/cumm [facility] Blood 01/04/2025 9:31 PM CDT 01/04/2025 10:33 PM CDT Rosa Beltran LAB BLOOD ORDERABLES Final Re sult Performing Organization Address [facility] de Phone Number [facility] [place] [address] * aPTT (01/04/2025 9:31 PM CDT) aPTT [...] Final Re sult Performing Organization Address [facility] Co de Phone Number [facility] [place] [address] * Protime-INR (01/04/2025 9:31 PM CDT) PT 12.3 10.2 - 13.5 sec INR 1.09 0.90 - 1.[address] [facility] Comment: Interpretive data Oral anticoagulant therapeutic ranges: Venous thromboembolism prophylaxis or treatment: 2.0-3.0 CARDIOLOGY Standard range: 2.0-3.0 High-intensity range: 2.5-3.5 Refer to indication-specific guidelines for appropriate target ranges for prosthetic heart valve replacement. Current interpretive data was last revised on 2019. Blood 01/04/2025 9:31 PM CDT 01/04/2025 10:25 PM CDT Rosa Rastaemely [employer] DEVELOPER LAB BLOOD ORDERABLES Final Re sult Performing Organization Address [facility] Co de Phone Number [facility] [place] [address] * (ABNORMAL) Phosphorus (01/04/2025 9:31 PM CDT) Phosphorus, pl 5.3(H) 2.3 - 4.5 mg/dL Blood 01/04/2025 9:31 PM CDT 01/04/2025 10:25 PM CDT [facility] LAB BLOOD ORDERABLES Final Re sult Performing Organization Address [facility] de Phone Number [facility] [place] [address] * (ABNORMAL) Magnesium (01/04/2025 9:31 PM CDT) Magnesium 2.6(H) 1.4 - 2.5 mg/dL Blood 01/04/2025 9:31 PM CDT 01/04/2025 10:25 PM CDT [facility] LAB BLOOD ORDERABLES Final Re sult Performing Organization Address [facility] de Phone Number [facility] [place] [address] * (ABNORMAL) Hepatic function panel (01/04/2025 9:31 PM CDT) Bilirubin, total 0.4 0.1 - 1.2 mg/dL Bilirubin, direct 0.2 0.1 - 0.3 mg/dL [facility] Protein, pl 6.2(L) 6.5 - 8.5 g/dL [facility] Albumin 3.1(L) 3.5 - 5.0 g/dL [facility] Alk phos 49 40 - 130 Units/L [facility] ALT 13 7 - 55 Units/L [facility] AST 28 10 - 50 Units/L [facility] Blood 01/04/2025 9:31 PM CDT 01/04/2025 10:25 PM CDT Rosa Beltran NP LAB BLOOD ORDERABLES Final Re sult [facility] [place] [address] * (ABNORMAL) Basic metabolic panel (01/04/2025 9:31 PM CDT) Sodium 139 135 - 145 mmol/L Potassium, pl 3.7 3.3 - 4.9 mmol/L [facility] Chloride 105 97 - 110 mmol/L [facility] CO2 21(L) 22 - 32 mmol/L [facility] Anion gap 13 2 - 15 mmol/L [facility] BUN 58(H) 6 - 25 mg/dL [facility] Creatinine 2.71(H) 0.80 - 1.30 mg/dL [facility] Glucose 91 70 - 199 mg/dL [facility] Comment: Interpretive Data Fasting glucose [...] 2022. Calcium 8.7 8.5 - 10.3 mg/dL [facility] Blood 01/04/2025 9:31 PM CDT 01/04/2025 10:25 PM CDT Rosa Beltran NP LAB BLOOD ORDERABLES Final Re sult Performing Organization Address [facility] Co de Phone Number [facility] [place] [address] * POCT glucose (01/04/2025 9:25 PM CDT) Glucose, POC 97 70 - 199 mg/dL Blood 01/04/2025 9:25 PM CDT 01/04/2025 9:25 PM CDT Parth Dalton MD LAB POCT ORDERABLES - DEVICE Final Result Performing Organization Address [facility] Co de Phone Number [facility] [place] [address] * POCT glucose (01/04/2025 7:29 PM CDT) Glucose, POC 95 70 - 199 mg/dL Blood 01/04/2025 7:29 PM CDT 01/04/2025 7:29 PM CDT Parth Dalton MD LAB POCT ORDERABLES - DEVICE Final Result Performing Organization Address City/[facility] Co de Phone Number [facility] [place] [address] * POCT glucose (01/04/2025 3:55 PM CDT) Glucose, POC 88 70 - 199 mg/dL Blood 01/04/2025 3:55 PM CDT 01/04/2025 3:55 PM CDT Parth Dalton MD LAB POCT ORDERABLES - DEVICE Final Result Performing Organization Address [facility] de Phone Number [facility] [place] [address] * (ABNORMAL) eGFR (01/04/2025 11:48 AM CDT) Pathologist [facility] eGFR 25(L) >=60 mL/min/1. 73 m2 Comment: [...] Final Re sult Performing Organization Address [facility] Co de Phone Number [facility] [place] [address] * (ABNORMAL) Basic metabolic panel (01/04/2025 11:48 AM CDT) Pathologist [facility] Sodium 138 135 - 145 mmol/L Potassium, pl 3.9 3.3 - 4.9 mmol/L [facility] Chloride 102 97 - 110 mmol/L [facility] CO2 22 22 - 32 mmol/L [facility] Anion gap 14 2 - 15 mmol/L [facility] BUN 58(H) 6 - 25 mg/dL [facility] Creatinine 2.62(H) 0.80 - 1.30 mg/dL [facility] Glucose 103 70 - 199 mg/dL [facility] Comment: Interpretive Data Fasting glucose [...] 2022. Calcium 8.9 8.5 - 10.3 mg/dL [facility] Blood 01/04/2025 11:4 8 AM CDT 01/04/2025 12:05 PM CDT Parth Dalton MD LAB BLOOD ORDERABLES Final Re sult [facility] [place] [address] * POCT glucose (01/04/2025 11:47 AM CDT) Glucose, POC 109 70 - 199 mg/dL Blood 01/04/2025 11:4 7 AM CDT 01/04/2025 11:47 AM CDT Parth Dalton MD LAB POCT ORDERABLES - DEVICE Final Result Performing Organization Address City/[facility]/ZIP Co de Phone Number [facility] [place] [address] * POCT glucose (01/04/2025 7:49 AM CDT) Glucose, POC 102 70 - 199 mg/dL Blood 01/04/2025 7:49 AM CDT 01/04/2025 7:49 AM CDT us Parth Dalton MD LAB POCT ORDERABLES - DEVICE Final Result Performing Organization Address [facility] de Phone Number [facility] [place] [place] [address] * (ABNORMAL) POCT glucose (01/04/2025 7:47 AM CDT) Glucose, POC 68(L) 70 - 199 mg/dL Blood 01/04/2025 7:47 AM CDT 01/04/2025 7:47 AM CDT us Parth Dalton MD LAB POCT ORDERABLES - DEVICE Final Result Performing Organization Address [facility] de Phone Number [facility] [place] [place] [address] * POCT glucose (01/04/2025 4:08 AM CDT) Glucose, POC 95 70 - 199 mg/dL Blood 01/04/2025 4:08 AM CDT 01/04/2025 4:08 AM CDT us Parth Dalton MD LAB POCT ORDERABLES - DEVICE Final Result Performing Organization Address [facility] de Phone Number [facility] [place] [address] * (ABNORMAL) POCT glucose (01/04/2025 4:03 AM CDT) Glucose, POC 65(L) 70 - 199 mg/dL Blood 01/04/2025 4:03 AM CDT 01/04/2025 4:03 AM CDT us Parth Dalton MD LAB POCT ORDERABLES - DEVICE Final Result Performing Organization Address [facility] de Phone Number [facility] [place] [address] * Oxyhemoglobin, central venous (01/04/2025 12:06 AM CDT) Oxyhemoglobin, CV 62.7 % Comment: Interpretive Data No reference range established. Current interpretive data was last revised 2019. Blood 01/04/2025 12:0 6 AM CDT 01/04/2025 12:14 AM CDT Parth Dalton MD LAB BLOOD ORDERABLES Final Re sult Performing Organization Address [facility] Co de Phone Number [facility] [place] [address] * Potassium, whole blood (01/04/2025 12:06 AM CDT) Pathologist [facility] Potassium, bld 4.3 3.3 - 4.9 mmol/L Blood 01/04/2025 12:0 6 AM CDT 01/04/2025 12:14 AM CDT Parth Dalton MD LAB BLOOD ORDERABLES Final Re sult Performing Organization Address [facility] Co de Phone Number [facility] Department [place] [address] * (ABNORMAL) eGFR (01/04/2025 12:06 AM CDT) [...] 01/04/2025 12:20 AM CDT us Marsha Villarreal NET MOBILE DEVELOPER LAB BLOOD ORDERABLES Final Re sult Performing Organization Address [facility] Co de Phone Number [facility] Department [place] [address] * POCT glucose (01/04/2025 12:06 AM CDT) Glucose, POC 96 70 - 199 mg/dL Blood 01/04/2025 12:0 6 AM CDT 01/04/2025 12:06 AM CDT us Parth Dalton MD LAB POCT ORDERABLES - DEVICE Final Result Performing Organization Address [facility] Co de Phone Number [facility] Department [place] [address] * Lactate, whole blood (01/04/2025 12:06 AM CDT) Lactate, bld 1.7 0.7 - 2.0 mmol/L Blood 01/04/2025 12:0 6 AM CDT 01/04/2025 12:14 AM CDT us Sravan Lugo PA LAB BLOOD ORDERABLES Raquel l Result Performing Organization Address [facility]/ZIP Co de Phone Number [facility] Department [place] [address] * (ABNORMAL) CBC without differential (01/04/2025 12:06 AM CDT) WBC 7.03 3.80 - 9.90 K/cumm Hgb 7.8(L) 13.0 - 17.5 g/dL [facility] Hct 23.2(L) 38.9 - 50.3 % [facility] Plt 203 150 - 400 K/cumm [facility] MPV 10.4 9.1 - 12.[address] [facility] RBC 2.32(L) 4.30 - 5.80 M/cumm [facility] MCV 100.0(H) 81.3 - 96.[address] [facility] MCH 33.6(H) 27.1 - 33.[address] [facility] MCHC 33.6 32.3 - 35.7 g/dL [facility] RDW CV 14.9 11.1 - 14.9 % [facility] RDW SD 54.5(H) 35.7 - 48.[address] [facility] NRBC abs 0.03(H) 0.00 - 0.01 K/cumm [facility] Blood 01/04/2025 12:0 6 AM CDT 01/04/2025 12:19 AM CDT Nicole Ho NET MOBILE DEVELOPER LAB BLOOD ORDERABLES F inal Result [facility] [place] [address] * (ABNORMAL) Phosphorus (01/04/2025 12:06 AM CDT) Pathologist [facility] Phosphorus, pl 5.9(H) 2.3 - 4.5 mg/dL Blood 01/04/2025 12:0 6 AM CDT 01/04/2025 12:12 AM CDT Marsha Villarreal NP LAB BLOOD ORDERABLES Final Re sult Performing Organization Address City/[facility]/ZIP Co de Phone Number [facility] Department [place] [address] * (ABNORMAL) Magnesium (01/04/2025 12:06 AM CDT) Pathologist [facility] Magnesium 2.6(H) 1.4 - 2.5 mg/dL Blood 01/04/2025 12:0 6 AM CDT 01/04/2025 12:12 AM CDT Parth Dalton MD LAB BLOOD ORDERABLES Final Re sult Performing Organization Address [facility] Co de Phone Number [facility] Department [place] [address] * (ABNORMAL) Basic metabolic panel (01/04/2025 12:06 AM CDT) [facility] Sodium 137 135 - 145 mmol/L Potassium, pl 4.4 3.3 - 4.9 mmol/L [facility] Chloride 102 97 - 110 mmol/L [facility] CO2 23 22 - 32 mmol/L [facility] Anion gap 12 2 - 15 mmol/L [facility] BUN 53(H) 6 - 25 mg/dL [facility] Creatinine 2.54(H) 0.80 - 1.30 mg/dL [facility] Glucose 100 70 - 199 mg/dL [facility] Comment: Interpretive Data Fasting glucose [...] 2022. Calcium 8.6 8.5 - 10.3 mg/dL [facility] Blood 01/04/2025 12:0 6 AM CDT 01/04/2025 12:12 AM CDT us Marsha Villarreal NP LAB BLOOD ORDERABLES Final Re sult Performing Organization Address City/[facility] Co de Phone Number [facility] Department [place] [address] * POCT glucose (01/03/2025 8:01 PM CDT) Glucose, POC 98 70 - 199 mg/dL Blood 01/03/2025 8:01 PM CDT 01/03/2025 8:01 PM CDT Parth Dalton MD LAB POCT ORDERABLES - DEVICE Final Result Performing Organization Address [facility] de Phone Number [facility] Department [place] [address] * XR Chest 1 View (01/03/2025 7:20 PM CDT) Anatomical Region Laterality Modality Body, Chest N/A Digital Radiogra phy 01/04/2025 7:42 AM CDT Impressions 01/04/2025 7:42 AM CDT Comparison is made to prior chest radiograph dated 01/02/2025. Tracheostomy tubing projects over the upper thoracic trachea. Gastric tube courses caudally below the diaphragm, beyond the [id number]. Sternotomy plate are unchanged. There is left [...] courses caudally below the diaphragm, beyond the [id number]-[id number]. Sternotomy plate are unchanged. There is left atrial appendage clip. Tip of a right internal jugular central venous catheter terminates in the superior vena cava. Left-sided chest tube is in place. No significant interval change in mild bibasilar atelectasis. No pneumothorax. Stable cardiomegaly. Electronically signed by: Lupe Garland M.D. us Devyn Palacios NET MOBILE DEVELOPER IMG XR PROCEDURES Final Resul t * [...] plan with the ICU team and other medical/mining consultant staff, making frequent assessments and decisions [...] Lactate, whole blood (01/03/2025 6:20 PM CDT) [facility] Lactate, bld 2.2(H) 0.7 - 2.0 mmol/L Blood 01/03/2025 6:20 PM CDT 01/03/2025 6:28 PM CDT us Jyotsna Salazar NET MOBILE DEVELOPER LAB BLOOD ORDERABLES Final Result Performing Organization Address City/[facility]/ZIP Co de Phone Number [facility] [place] [address] * POCT glucose (01/03/2025 4:59 PM CDT) [facility] Glucose, POC 106 70 - 199 mg/dL Blood 01/03/2025 4:59 PM CDT 01/03/2025 4:59 PM CDT us Parth Dalton MD LAB POCT ORDERABLES - DEVICE Final Result Performing Organization Address [facility] Co de Phone Number [facility] [place] [address] * MRSA Only (Staphylococcus aureus) Culture Nasal (01/03/2025 11:26 AM CDT) [facility] Report Final Report: Negative Nasal 01/03/2025 11:2 6 AM CDT 01/03/2025 11:59 AM CDT Narrative [facility] - 01/04/2025 1:37 PM CDT Testing performed by [facility] ([phone]). us Seema Palma DNP LAB MICROBIOLOGY - GENE RAL ORDERABLES Final Result Performing Organization Address [facility] Co de Phone Number [facility] [place], [place] [id number] * (ABNORMAL) eGFR (01/03/2025 11:26 AM CDT) [...] 01/03/2025 11:48 AM CDT us Seema Palma [facility] LAB BLOOD ORDERABLES nal Result [facility] Department [place] [address] * (ABNORMAL) Basic metabolic panel (01/03/2025 11:26 AM CDT) Pathologist [facility] Sodium 136 135 - 145 mmol/L Potassium, pl 3.7 3.3 - 4.9 mmol/L [facility] Chloride 100 97 - 110 mmol/L [facility] CO2 22 22 - 32 mmol/L [facility] Anion gap 14 2 - 15 mmol/L [facility] BUN 45(H) 6 - 25 mg/dL [facility] Creatinine 2.21(H) 0.80 - 1.30 mg/dL [facility] Glucose 104 70 - 199 mg/dL [facility] Comment: Interpretive Data Fasting glucose [...] 2022. Calcium 8.4(L) 8.5 - 10.3 mg/dL [facility] Blood 01/03/2025 11:2 6 AM CDT 01/03/2025 11:48 AM CDT Seema Palma [facility] LAB BLOOD ORDERABLES Fi nal Result Performing Organization Address [facility] Co de Phone Number [facility] Department [place] [address] * POCT glucose (01/03/2025 8:20 AM CDT) Glucose, POC 108 70 - 199 mg/dL Blood 01/03/2025 8:20 AM CDT 01/03/2025 8:20 AM CDT Parth Dalton MD LAB POCT ORDERABLES - DEVICE Final Result Performing Organization Address [facility] Co de Phone Number [facility] [place] [address] * POCT glucose (01/03/2025 4:17 AM CDT) Glucose, POC 102 70 - 199 mg/dL Blood 01/03/2025 4:17 AM CDT 01/03/2025 4:17 AM CDT Parth Dalton MD LAB POCT ORDERABLES - DEVICE Final Result Performing Organization Address [facility]/ZIP Co de Phone Number [facility] Department [place] [address] * POCT glucose (01/03/2025 12:10 AM CDT) Glucose, POC 134 70 - 199 mg/dL Blood 01/03/2025 12:1 0 AM CDT 01/03/2025 12:10 AM CDT Parth Dalton MD LAB POCT ORDERABLES - DEVICE Final Result Performing Organization Address [facility] [place] [address] * Infection Prevention Blanche auris PCR, surveillance Axilla/Groin (01/03/2025 12:06 AM CDT) [facility] Blanche auris DNA Not Detected Not Detected [facility] Comment: Interpretive Data Testing performed by [facility] using the Daquan flaquita 6800 Blanche auris assay. This assay detects DNA from Blanche auris using Real-Time PCR. This assay is laboratory developed and is not cleared by the [place] Food and Drug Administration. The performance characteristics have been verified by the [facility]. Axilla/Groin 01/03/2025 12:0 6 AM CDT 01/03/2025 2:54 AM CDT Narrative [facility] - 01/03/2025 12:43 PM CDT Order placed by [facility] due to ring surveillance. us Instant Order Generic Provider LAB MICROBIOLOGY - GENERAL ORDERABLES Final Result Performing Organization Address [facility] Co de Phone Number [facility] Fernanda [facility] [place] [address] [facility] * Oxyhemoglobin, central venous (01/03/2025 12:06 AM CDT) [facility] Oxyhemoglobin, CV 64.7 % Comment: Interpretive Data No reference range established. Current interpretive data was last revised 2019. Blood 01/03/2025 12:0 6 AM CDT 01/03/2025 12:18 AM CDT Magy Kaur NP LAB BLOOD ORDERABLES F inal Result Performing Organization Address City/[facility]/ZIP Co de Phone Number [facility] Department [place] [address] * Potassium, whole blood (01/03/2025 12:06 AM CDT) Potassium, bld 3.7 3.3 - 4.9 mmol/L Blood 01/03/2025 12:0 6 AM CDT 01/03/2025 12:18 AM CDT Parth Dalton MD LAB BLOOD ORDERABLES Final Re sult Performing Organization Address [facility] Co de Phone Number [facility] [place] [place] [address] * (ABNORMAL) eGFR (01/03/2025 12:06 AM CDT) [...] 01/03/2025 12:18 AM CDT us Marsha Villarreal NET MOBILE DEVELOPER LAB BLOOD ORDERABLES Final Re sult [facility] Department [place] [address] * (ABNORMAL) Differential, auto (01/03/2025 12:06 AM CDT) Neutrophil abs 4.02 1.50 - 6.50 K/cumm Imm gran abs 0.03 0.00 - 0.10 K/cumm [facility] Lymphocyte abs 0.26(L) 0.80 - 3.30 K/cumm [facility] Monocyte abs 0.26 0.20 - 0.80 K/cumm [facility] Eosinophil abs 0.01 0.00 - 0.50 K/cumm [facility] Basophil abs 0.01 0.00 - 0.10 K/cumm [facility] Neutrophil pct 87.5 % [facility] Comment: Interpretive Data Percent cell count reference ranges are not reported, since discordance with absolute values may lead to misinterpretation of CBC data. Current Interpretive Data was last revised on 2017. Imm gran pct 0.7 % [facility] Comment: Interpretive Data Percent cell count reference ranges are not reported, since discordance with absolute values may lead to misinterpretation of CBC data. Current Interpretive Data was last revised on 2017. Lymphocyte pct 5.7 % [facility] Comment: Interpretive Data Percent cell count reference ranges are not reported, since discordance with absolute values may lead to misinterpretation of CBC data. Current Interpretive Data was last revised on 2017. Monocyte pct 5.7 % [facility] Comment: Interpretive Data Percent cell count reference ranges are not reported, since discordance with absolute values may lead to misinterpretation of CBC data. Current Interpretive Data was last revised on 2017. Eosinophil pct 0.2 % [facility] Comment: Interpretive Data Percent cell count reference ranges are not reported, since discordance with absolute values may lead to misinterpretation of CBC data. Current Interpretive Data was last revised on 2017. Basophil pct 0.2 % [facility] Comment: Interpretive Data Percent cell count reference ranges are not reported, since discordance with absolute values may lead to misinterpretation of CBC data. Current Interpretive Data was last revised on 2017. Blood 01/03/2025 12:0 6 AM CDT 01/03/2025 12:18 AM CDT us Marla Francois NP LAB BLOOD ORDERABLES Raquel amaya Result [facility] Department [place] [address] * (ABNORMAL) CBC with auto differential (01/03/2025 12:06 AM CDT) WBC 4.59 3.80 - 9.90 K/cumm Hgb 7.8(L) 13.0 - 17.5 g/dL [facility] Hct 23.6(L) 38.9 - 50.3 % [facility] Plt 149(L) 150 - 400 K/cumm [facility] MPV 10.4 9.1 - 12.[address] [facility] RBC 2.34(L) 4.30 - 5.80 M/cumm [facility] MCV 100.9(H) 81.3 - 96.[address] [facility] MCH 33.3 27.1 - 33.[address] [facility] MCHC 33.1 32.3 - 35.7 g/dL [facility] RDW CV 14.5 11.1 - 14.9 % [facility] RDW SD 53.8(H) 35.7 - 48.[address] [facility] NRBC abs 0.02(H) 0.00 - 0.01 K/cumm [facility] Blood 01/03/2025 12:0 6 AM CDT 01/03/2025 12:18 AM CDT us Marla Francois NET MOBILE DEVELOPER LAB BLOOD ORDERABLES Raquel l Result Performing Organization Address [facility] Co de Phone Number [facility] [place] [place] [address] * Type and screen (01/03/2025 12:06 AM CDT) Becca, indirect Negative ABO Rh A Positive [facility] Blood 01/03/2025 12:0 6 AM CDT 01/03/2025 12:21 AM CDT Narrative [facility] - 01/03/2025 1:23 AM CDT Has the patient had Daratumumab or Isatuximab in the past 6 months?->Unknown us Nicole Ho NET MOBILE DEVELOPER LAB BLOOD BANK TEST OR DERABLES Final Result Performing Organization Address [facility] Co de Phone Number [facility] Department [place] [address] * (ABNORMAL) Phosphorus (01/03/2025 12:06 AM CDT) Pathologist [facility] Phosphorus, pl 5.3(H) 2.3 - 4.5 mg/dL Blood 01/03/2025 12:0 6 AM CDT 01/03/2025 12:18 AM CDT us Marsha Villarreal NET MOBILE DEVELOPER LAB BLOOD ORDERABLES Final Re sult Performing Organization Address [facility] Co de Phone Number [facility] [place] [address] * (ABNORMAL) Magnesium (01/03/2025 12:06 AM CDT) Magnesium 2.6(H) 1.4 - 2.5 mg/dL Blood 01/03/2025 12:0 6 AM CDT 01/03/2025 12:18 AM CDT Marsha Villarreal NET MOBILE DEVELOPER LAB BLOOD ORDERABLES Final Re sult Performing Organization Address City/[facility]/ZIP Co de Phone Number [facility] Department [place] [address] * (ABNORMAL) Basic metabolic panel (01/03/2025 12:06 AM CDT) Pathologist [facility] Sodium 136 135 - 145 mmol/L Potassium, pl 3.8 3.3 - 4.9 mmol/L [facility] Chloride 98 97 - 110 mmol/L [facility] CO2 24 22 - 32 mmol/L [facility] Anion gap 14 2 - 15 mmol/L [facility] BUN 43(H) 6 - 25 mg/dL [facility] Creatinine 2.01(H) 0.80 - 1.30 mg/dL [facility] Glucose 142 70 - 199 mg/dL [facility] Comment: Interpretive Data Fasting glucose [...] 2022. Calcium 8.4(L) 8.5 - 10.3 mg/dL [facility] Blood 01/03/2025 12:0 6 AM CDT 01/03/2025 12:18 AM CDT Marsha Villarreal NET MOBILE DEVELOPER LAB BLOOD ORDERABLES Final Re sult Performing Organization Address [facility]/ZIP Co de Phone Number [facility] Fern[facility] [place] [address] * POCT glucose (01/02/2025 7:52 PM CDT) Glucose, POC 125 70 - 199 mg/dL Blood 01/02/2025 7:52 PM CDT 01/02/2025 7:52 PM CDT us Parth Dalton MD LAB POCT ORDERABLES - DEVICE Final Result Performing Organization Address [facility] Co de Phone Number [facility] [place] [address] * Oxyhemoglobin, central venous (01/02/2025 7:50 PM CDT) Oxyhemoglobin, CV 67.3 % Comment: Interpretive Data No reference range established. Current interpretive data was last revised 2019. Blood 01/02/2025 7:50 PM CDT 01/02/2025 7:57 PM CDT us Magy Kaur NET MOBILE DEVELOPER LAB BLOOD ORDERABLES F inal Result Performing Organization Address [facility] de Phone Number [facility] [place] [address] * Potassium, whole blood (01/02/2025 7:50 PM CDT) Potassium, bld 4.3 3.3 - 4.9 mmol/L Blood 01/02/2025 7:50 PM CDT 01/02/2025 7:57 PM CDT us Jyotsna Salazar NET MOBILE DEVELOPER LAB BLOOD ORDERABLES Final Result Performing Organization Address [facility] Co de Phone Number [facility] [place] [address] * Critical Care (01/02/2025 7:47 PM CDT) [...] plan with the ICU team and other medical/mining consultant staff, making frequent assessments and decisions [...] the distal tip is out of the vawaj-la-[id number]. Right internal jugular approach central venous catheter [...] the distal tip is out of the cmmsg-[id number]-navq. Right internal jugular approach central venous catheter [...] José Miguel Shore M.D. us Devyn Palacios NET MOBILE DEVELOPER IMG XR PROCEDURES Final Resul t * POCT glucose (01/02/2025 3:05 PM CDT) Glucose, POC 93 70 - 199 mg/dL Blood 01/02/2025 3:05 PM CDT 01/02/2025 3:05 PM CDT Parth Dalton MD LAB POCT ORDERABLES - DEVICE Final Result [facility] Department [place] [address] * Oxyhemoglobin, central venous (01/02/2025 3:01 PM CDT) Oxyhemoglobin, CV 44.0 % Comment: Interpretive Data No reference range established. Current interpretive data was last revised 2019. Blood 01/02/2025 3:01 PM CDT 01/02/2025 3:23 PM CDT Magy Kaur NET MOBILE DEVELOPER LAB BLOOD ORDERABLES F inal Result Performing Organization Address [facility] Co de Phone Number [facility] [place] [place] [address] * Potassium, whole blood (01/02/2025 3:01 PM CDT) Potassium, bld 4.5 3.3 - 4.9 mmol/L Blood 01/02/2025 3:01 PM CDT 01/02/2025 3:22 PM CDT Jyotsna Salazar NET MOBILE DEVELOPER LAB BLOOD ORDERABLES Final Result Performing Organization Address [facility] de Phone Number [facility] [place] [place] [address] * POCT glucose (01/02/2025 11:35 AM CDT) Glucose, POC 88 70 - 199 mg/dL Blood 01/02/2025 11:3 5 AM CDT 01/02/2025 11:35 AM CDT Parth Dalton MD LAB POCT ORDERABLES - DEVICE Final Result Performing Organization Address [facility] Co de Phone Number [facility] [place] [place] [address] * Oxyhemoglobin, central venous (01/02/2025 11:01 AM CDT) Oxyhemoglobin, CV 46.3 % Comment: Interpretive Data No reference range established. Current interpretive data was last revised 2019. Blood 01/02/2025 11:0 1 AM CDT 01/02/2025 11:05 AM CDT Magy Kaur NET MOBILE DEVELOPER LAB BLOOD ORDERABLES F inal Result Performing Organization Address City/[facility]/ZIP Co de Phone Number [facility] Department [place] [address] * Potassium, whole blood (01/02/2025 11:01 AM CDT) Potassium, bld 4.8 3.3 - 4.9 mmol/L Blood 01/02/2025 11:0 1 AM CDT 01/02/2025 11:05 AM CDT us Jyotsna Salazar NET MOBILE DEVELOPER LAB BLOOD ORDERABLES Final Result Performing Organization Address [facility] de Phone Number [facility] [place] [place] [address] * (ABNORMAL) Urinalysis reflex to microscopic (01/02/2025 9:53 AM CDT) Color, ur Yellow Yellow Clarity, ur Clear Clear [facility] Specific gravity, ur 1.038(H) 1.003 - 1.[address] [facility] pH, urine 6.[address] [facility] Comment: Interpretive Data U rine pH is affected by diet, medications, systemic acid-base disturbances, and renal tubular function. pH may affect urinary stone formation. For example, urine pH below 6.0 may help reduce the tendency for calcium phosphate stones and pH greater than 6.0 may reduce the tendency for uric acid stone formation. Source: [facility] Current Interpretive Data was last revised on 2017 Protein, ur ql 2+(A) Negative [facility] Glucose, ur ql Negative Negative [facility] Ketones, ur 1+(A) Negative [facility] Bilirubin, ur Negative Negative [facility] Blood, ur 2+(A) Negative [facility] Urobilinogen, ur <2.0 <2.0 mg/dL [facility] Nitrite, ur Negative Negative [facility] Leukocyte esterase, ur Negative Negative [facility] UA reflex comment Reflex to microscopic UA will be performed. [facility] Urine 01/02/2025 9:53 AM CDT 01/02/2025 10:00 AM CDT us Marla Francois NET MOBILE DEVELOPER LAB URINE ORDERABLES Raquel l Result Performing Organization Address [facility] Co de Phone Number [facility] Department [place] [address] * (ABNORMAL) Urinalysis, microscopic only (01/02/2025 9:53 AM CDT) WBC, ur 0-5 0 - 5 /HPF RBC, ur 11-20(A) 0 - 2 /HPF [facility] Epithelial cells, squamous, ur 1-5 0 - 5 /HPF [facility] Mucous, ur Present(A) [facility] Hyaline casts, ur 21-50(A) 0 - 10 /LPF [facility] Urine 01/02/2025 9:53 AM CDT 01/02/2025 10:00 AM CDT us Marla Francois NP LAB URINE ORDERABLES Raquel l Result Performing Organization Address [facility] Co de Phone Number [facility] [place] [address] * POCT glucose (01/02/2025 8:33 AM CDT) Glucose, POC 80 70 - 199 mg/dL Blood 01/02/2025 8:33 AM CDT 01/02/2025 8:33 AM CDT us Parth Dalton MD LAB POCT ORDERABLES - DEVICE Final Result Performing Organization Address [facility] [place] [address] * Critical Care (01/02/2025 7:09 AM CDT) [...] plan with the ICU team and other medical/mining consultant staff, making frequent assessments and decisions [...] in the medical record us Marla Francois NET MOBILE DEVELOPER IN CLINIC/BEDSIDE ORDERAB LES Final Result * Potassium, whole blood (01/02/2025 6:29 AM CDT) Potassium, bld 3.8 3.3 - 4.9 mmol/L Blood 01/02/2025 6:29 AM CDT 01/02/2025 6:33 AM CDT us Jyotsna Salazar NET MOBILE DEVELOPER LAB BLOOD ORDERABLES Final Result [facility] Department [place] [address] * POCT glucose (01/02/2025 4:03 AM CDT) Glucose, POC 93 70 - 199 mg/dL Blood 01/02/2025 4:03 AM CDT 01/02/2025 4:03 AM CDT Parth Dalton MD LAB POCT ORDERABLES - DEVICE Final Result Performing Organization Address [facility] de Phone Number [facility] [place] [address] * Oxyhemoglobin, central venous (01/02/2025 12:01 AM CDT) Pathologist [facility] Oxyhemoglobin, CV 61.9 % Comment: Interpretive Data No reference range established. Current interpretive data was last revised 2019. Blood 01/02/2025 12:0 1 AM CDT 01/02/2025 12:29 AM CDT Magy Kaur NP LAB BLOOD ORDERABLES F inal Result Performing Organization Address [facility] de Phone Number [facility] Department [place] [address] * Potassium, whole blood (01/02/2025 12:01 AM CDT) [facility] Potassium, bld 3.6 3.3 - 4.9 mmol/L Blood 01/02/2025 12:0 1 AM CDT 01/02/2025 12:29 AM CDT Parth Dalton MD LAB BLOOD ORDERABLES Final Re sult Performing Organization Address [facility] de Phone Number [facility] [place] [address] * (ABNORMAL) eGFR (01/02/2025 12:01 AM CDT) [facility] eGFR 46(L) >=60 mL/min/1. 73 m2 Comment: [...] 01/02/2025 12:38 AM CDT us Marsha Villarreal NET MOBILE DEVELOPER LAB BLOOD ORDERABLES Final Re sult [facility] Department [place] [address] * (ABNORMAL) CBC without differential (01/02/2025 12:01 AM CDT) WBC 3.74(L) 3.80 - 9.90 K/cumm Hgb 8.6(L) 13.0 - 17.5 g/dL [facility] Hct 25.2(L) 38.9 - 50.3 % [facility] Plt 138(L) 150 - 400 K/cumm [facility] MPV 10.5 9.1 - 12.[address] [facility] RBC 2.51(L) 4.30 - 5.80 M/cumm [facility] MCV 100.4(H) 81.3 - 96.[address] [facility] MCH 34.3(H) 27.1 - 33.[address] [facility] MCHC 34.1 32.3 - 35.7 g/dL [facility] RDW CV 14.4 11.1 - 14.9 % [facility] RDW SD 52.6(H) 35.7 - 48.[address] [facility] NRBC abs 0.02(H) 0.00 - 0.01 K/cumm [facility] Blood 01/02/2025 12:0 1 AM CDT 01/02/2025 12:40 AM CDT Rosa Beltran NET MOBILE DEVELOPER LAB BLOOD ORDERABLES Final Re sult Performing Organization Address City/[facility]/ZIP Co de Phone Number [facility] [place] [address] * (ABNORMAL) Phosphorus (01/02/2025 12:01 AM CDT) Pathologist [facility] Phosphorus, pl 5.7(H) 2.3 - 4.5 mg/dL Blood 01/02/2025 12:0 1 AM CDT 01/02/2025 12:38 AM CDT Marsha Villarreal NET MOBILE DEVELOPER LAB BLOOD ORDERABLES Final Re sult Performing Organization Address [facility] Co de Phone Number [facility] [place] [address] * Magnesium (01/02/2025 12:01 AM CDT) Pathologist [facility] Magnesium 2.1 1.4 - 2.5 mg/dL Blood 01/02/2025 12:0 1 AM CDT 01/02/2025 12:38 AM CDT Marsha Villarreal NET MOBILE DEVELOPER LAB BLOOD ORDERABLES Final Re sult Performing Organization Address City/[facility] Co de Phone Number [place], [place] [id number] * (ABNORMAL) Basic metabolic panel (01/02/2025 12:01 AM CDT) Sodium 138 135 - 145 mmol/L Potassium, pl 3.6 3.3 - 4.9 mmol/L [facility] Chloride 101 97 - 110 mmol/L [facility] CO2 23 22 - 32 mmol/L [facility] Anion gap 14 2 - 15 mmol/L [facility] BUN 33(H) 6 - 25 mg/dL [facility] Creatinine 1.58(H) 0.80 - 1.30 mg/dL [facility] Glucose 103 70 - 199 mg/dL [facility] Comment: Interpretive Data Fasting glucose [...] 2022. Calcium 8.4(L) 8.5 - 10.3 mg/dL [facility] Blood 01/02/2025 12:0 1 AM CDT 01/02/2025 12:38 AM CDT us Marsha Villarreal NET MOBILE DEVELOPER LAB BLOOD ORDERABLES Final Re sult Performing Organization Address [facility] Co de Phone Number [facility] [place] [address] * POCT glucose (01/01/2025 11:57 PM CDT) [facility] Signature Glucose, POC 105 70 - 199 mg/dL Blood 01/01/2025 11:5 7 PM CDT 01/01/2025 11:57 PM CDT us Parth Dalton MD LAB POCT ORDERABLES - DEVICE Final Result Performing Organization Address [facility] Co de Phone Number [facility] Department [place] [address] * XR Chest 1 View (01/01/2025 9:18 PM CDT) Anatomical Region Laterality Modality Body, Chest N/A Computed Radiogr aphy 01/02/2025 9:25 AM CDT Impressions 01/02/2025 11:05 AM CDT Comparison is made with multiple prior exams, most recently radiograph dated 12/31/2024. Patient is rotated. Patient is status post tracheostomy. Gastric tube extends into the stomach, the tip terminates out of the [id number]. Right internal jugular vein approach intravenous catheter [...] stomach, the tip terminates out of the [id number]. Right internal jugular vein approach intravenous catheter [...] by: Geni Mckeon M.D. us Devyn Palacios NET MOBILE DEVELOPER IMG XR PROCEDURES Final Resul t * [...] plan with the ICU team and other medical/mining consultant staff, making frequent assessments and decisions [...] of the following conditions: us Nicole Ho NET MOBILE DEVELOPER IN CLINIC/BEDSIDE JUAN IVY Final Result * POCT glucose (01/01/2025 7:47 PM CDT) Glucose, POC 105 70 - 199 mg/dL Blood 01/01/2025 7:47 PM CDT 01/01/2025 7:47 PM CDT Parth Dalton MD LAB POCT ORDERABLES - DEVICE Final Result CYNTHIA [facility] Department [place] [address] * Potassium, whole blood (01/01/2025 6:06 PM CDT) Pathologist [facility] Potassium, bld 3.9 3.3 - 4.9 mmol/L Blood 01/01/2025 6:06 PM CDT 01/01/2025 6:12 PM CDT us Jyotsna Salazar NET MOBILE DEVELOPER LAB BLOOD ORDERABLES Final Result [facility] Department [place] [address] * POCT glucose (01/01/2025 5:06 PM CDT) [facility] Glucose, POC 116 70 - 199 mg/dL Blood 01/01/2025 5:06 PM CDT 01/01/2025 5:06 PM CDT us Parth Dalton MD LAB POCT ORDERABLES - DEVICE Final Result Performing Organization Address City/[facility] Co de Phone Number [facility] Department [place] [address] * (ABNORMAL) POC Blood Gas and Chemistries, Venous - (01/01/2025 12:18 PM CDT) [facility] pH, Isak POC 7.38 7.32 - 7.43 pCO2, isak POC 38(L) 40 - [address] [facility] pO2, isak POC [address] [facility] Na, POC 135 135 - 145 mmol/L [facility] K POC 3.8 3.3 - 4.9 mmol/L [facility] Comment: Interpretive Data Not all point of care methods assess for hemolysis. Confirm with instrument and retest K+ if not consistent with clinical signs and symptoms. Current Interpretive Data was last revised on 2023. Cl, POC 105 97 - 110 mmol/L [facility] Glucose, POC 118 70 - 199 mg/dL [facility] Lactate POC 1.5 0.7 - 2.0 mmol/L [facility] O2 Sat, Isak POC (Felipe) Incalculable % [facility] Base excess, POC -2.3 mmol/L [facility] HCO3, Isak POC 22 20 - 30 mmol/L [facility] Hct, POC Incalculable 41.4 - 51.6 % [facility] Total Hb, POC Incalculable 13.8 - 17.2 g/dL [facility] Blood 01/01/2025 12:1 8 PM CDT 01/01/2025 12:18 PM CDT Parth Dalton MD LAB POCT ORDERABLES - DEVICE Final Result Performing Organization Address City/[facility] Co de Phone Number [facility] [place] [address] * POCT glucose (01/01/2025 11:26 AM CDT) [facility] Glucose, POC 114 70 - 199 mg/dL Blood 01/01/2025 11:2 6 AM CDT 01/01/2025 11:26 AM CDT Parth Dalton MD LAB POCT ORDERABLES - DEVICE Final Result Performing Organization Address [facility] Co de Phone Number [facility] [place] [address] * Critical Care (01/01/2025 8:11 AM CDT) [...] plan with the ICU team and other medical/mining consultant staff, making frequent assessments and decisions [...] DEVICE Final Result Performing Organization Address [facility] Co de Phone Number [facility] [place] [address] * POCT glucose (01/01/2025 4:22 AM CDT) Glucose, POC 117 70 - 199 mg/dL Blood 01/01/2025 4:22 AM CDT 01/01/2025 4:22 AM CDT Parth Dalton MD LAB POCT ORDERABLES - DEVICE Final Result Performing Organization Address City/[facility] Co de Phone Number [facility] [place] [address] * Oxyhemoglobin, central venous (01/01/2025 4:21 AM CDT) Oxyhemoglobin, CV 67.4 % Comment: Interpretive Data No reference range established. Current interpretive data was last revised 2019. Blood 01/01/2025 4:21 AM CDT 01/01/2025 4:33 AM CDT Magy Kaur NP LAB BLOOD ORDERABLES F inal Result Performing Organization Address [facility] Co de Phone Number [facility] [place] [address] * Oxyhemoglobin, central venous (12/31/2024 11:43 PM CDT) Oxyhemoglobin, CV 60.7 % Comment: Interpretive Data No reference range established. Current interpretive data was last revised 2019. Blood 12/31/2024 11:4 3 PM CDT 01/01/2025 12:04 AM CDT Magy Kaur NP LAB BLOOD ORDERABLES F inal Result Performing Organization Address [facility] de Phone Number [facility] [place] [address] * Potassium, whole blood (12/31/2024 11:43 PM CDT) Potassium, bld 4.4 3.3 - 4.9 mmol/L Blood 12/31/2024 11:4 3 PM CDT 01/01/2025 12:04 AM CDT Parth Dalton MD LAB BLOOD ORDERABLES Final Re sult Performing Organization Address [facility] Co de Phone Number [facility] [place] [address] * (ABNORMAL) eGFR (12/31/2024 11:43 PM CDT) [...] CDT 01/01/2025 12:08 AM CDT Marsha Villarreal NET MOBILE DEVELOPER LAB BLOOD ORDERABLES Final Re sult [facility] Department of Laboratories [place], [place] [id number] * (ABNORMAL) CBC without differential (12/31/2024 11:43 PM CDT) WBC 5.69 3.80 - 9.90 K/cumm Hgb 9.0(L) 13.0 - 17.5 g/dL [facility] Hct 26.8(L) 38.9 - 50.3 % [facility] Plt 108(L) 150 - 400 K/cumm [facility] MPV 10.8 9.1 - 12.[address] [facility] RBC 2.65(L) 4.30 - 5.80 M/cumm [facility] MCV 101.1(H) 81.3 - 96.[address] [facility] MCH 34.0(H) 27.1 - 33.[address] [facility] MCHC 33.6 32.3 - 35.7 g/dL [facility] RDW CV 14.4 11.1 - 14.9 % [facility] RDW SD 53.4(H) 35.7 - 48.[address] [facility] NRBC abs 0.00 0.00 - 0.01 K/cumm [facility] Blood 12/31/2024 11:4 3 PM CDT 01/01/2025 12:08 AM CDT Rosa Beltran NET MOBILE DEVELOPER LAB BLOOD ORDERABLES Final Re sult Performing Organization Address City/[facility] Co de Phone Number [facility] [place] [place] [address] * Phosphorus (12/31/2024 11:43 PM CDT) Pathologist [facility] Phosphorus, pl 4.4 2.3 - 4.5 mg/dL Blood 12/31/2024 11:4 3 PM CDT 01/01/2025 12:08 AM CDT Marsha Villarreal NET MOBILE DEVELOPER LAB BLOOD ORDERABLES Final Re sult Performing Organization Address [facility] Co de Phone Number [facility] Department [place] [address] * Magnesium (12/31/2024 11:43 PM CDT) [facility] Magnesium 2.3 1.4 - 2.5 mg/dL Blood 12/31/2024 11:4 3 PM CDT 01/01/2025 12:08 AM CDT Marsha Villarreal NET MOBILE DEVELOPER LAB BLOOD ORDERABLES Final Re sult Performing Organization Address [facility] Co de Phone Number [facility] [place] [address] * (ABNORMAL) Basic metabolic panel (12/31/2024 11:43 PM CDT) Sodium 137 135 - 145 mmol/L Potassium, pl 4.5 3.3 - 4.9 mmol/L [facility] Chloride 103 97 - 110 mmol/L [facility] CO2 23 22 - 32 mmol/L [facility] Anion gap 11 2 - 15 mmol/L [facility] BUN 25 6 - 25 mg/dL [facility] Creatinine 1.33(H) 0.80 - 1.30 mg/dL [facility] Glucose 124 70 - 199 mg/dL [facility] Comment: Interpretive Data Fasting glucose [...] 2022. Calcium 8.4(L) 8.5 - 10.3 mg/dL [facility] Blood 12/31/2024 11:4 3 PM CDT 01/01/2025 12:08 AM CDT us Marsha Villarreal NP LAB BLOOD ORDERABLES Final Re sult Performing Organization Address [facility]/ZIP Co de Phone Number [facility] [place] [address] * POCT glucose (12/31/2024 11:42 PM CDT) Glucose, POC 123 70 - 199 mg/dL Blood 12/31/2024 11:4 2 PM CDT 12/31/2024 11:42 PM CDT Parth Dalton MD LAB POCT ORDERABLES - DEVICE Final Result Performing Organization Address [facility]/ZIP Co de Phone Number [facility] Department [place] [address] * Oxyhemoglobin, central venous (12/31/2024 8:39 PM CDT) Oxyhemoglobin, CV 67.7 % Comment: Interpretive Data No reference range established. Current interpretive data was last revised 2019. Blood 12/31/2024 8:39 PM CDT 12/31/2024 8:53 PM CDT us Magy Kaur NP LAB BLOOD ORDERABLES F inal Result Performing Organization Address City/[facility]/ZIP Co de Phone Number [facility] [place] [address] * POCT glucose (12/31/2024 8:36 PM CDT) Glucose, POC 127 70 - 199 mg/dL Blood 12/31/2024 8:36 PM CDT 12/31/2024 8:36 PM CDT us Parth Dalton MD LAB POCT ORDERABLES - DEVICE Final Result Performing Organization Address City/[facility]/ZIP Co de Phone Number [facility] [place] [place] [address] * Critical Care (12/31/2024 7:30 PM CDT) [...] plan with the ICU team and other medical/mining consultant staff, making frequent assessments and decisions [...] deterioration of the following conditions: Nicole Ho NET MOBILE DEVELOPER IN CLINIC/BEDSIDE JUAN IVY Final Result * Oxyhemoglobin, central venous (12/31/2024 6:09 PM CDT) Pathologist [facility] Oxyhemoglobin, CV 51.8 % Comment: Interpretive Data No reference range established. Current interpretive data was last revised 2019. Blood 12/31/2024 6:09 PM CDT 12/31/2024 6:20 PM CDT Magy Kaur NET MOBILE DEVELOPER LAB BLOOD ORDERABLES F inal Result Performing Organization Address City/[facility]/ZIP Co de Phone Number [facility] [place] [address] * Potassium, whole blood (12/31/2024 6:09 PM CDT) [facility] Potassium, bld 4.8 3.3 - 4.9 mmol/L Blood 12/31/2024 6:09 PM CDT 12/31/2024 6:20 PM CDT Jyotsna Salazar NET MOBILE DEVELOPER LAB BLOOD ORDERABLES Final Result Performing Organization Address [facility] Co de Phone Number [facility] [place] [address] * HIT Antibodies with Reflex to Serotonin Release Assay (LEON) (12/31/2024 6:09 PM CDT) [facility] HIT antibodies Negative Negative HIT Ab CAESAR Units 0.39 0.00 - 0.99 units/mL [facility] Comment: A positive HIT Ab [...] CDT 12/31/2024 6:20 PM CDT Devyn Palacios NET MOBILE DEVELOPER LAB BLOOD ORDERABLES Final Re sult [facility] Department [place] [address] * Blood culture Blood (12/31/2024 5:05 PM CDT) Report Final Report: No growth Blood 12/31/2024 5:05 PM CDT 12/31/2024 6:39 PM CDT Narrative [facility] 01/05/2025 7:00 AM CDT Collection->Peripheral 1. [...] performance characteristics have been verified by the [facility]. For questions about this culture, contact the Microbiology Laboratory at [phone]. Interpretive data was last revised on 24. [facility] Palacios NET MOBILE DEVELOPER LAB MICROBIOLOGY - GENERAL OR DERABLES Final Result CYNTHIA MURPHY [facility] Department [place] [address] * Blood culture Blood (12/31/2024 5:05 PM CDT) Report Final Report: No growth Blood 12/31/2024 5:05 PM CDT 12/31/2024 6:39 PM CDT Narrative [facility] - 01/05/2025 7:00 AM CDT Collection->Peripheral 1. [...] performance characteristics have been verified by the [facility]. For questions about this culture, contact the Microbiology Laboratory at [phone]. Interpretive data was last revised on 24. [facility] zulilyng NET MOBILE DEVELOPER LAB MICROBIOLOGY - GENERAL OR DERABLES Final Result Performing Organization Address [facility]/ZIP Co de Phone Number CYNTHIA MURPHY Fernanda [facility] Department [place] [address] * (ABNORMAL) Urinalysis reflex to microscopic (12/31/2024 4:35 PM CDT) Color, ur Straw Yellow Clarity, ur Clear Clear [facility] Specific gravity, ur 1.020 1.003 - 1.030 [facility] pH, urine 6.[address] [facility] Comment: Interpretive Data U rine pH is affected by diet, medications, systemic acid-base disturbances, and renal tubular function. pH may affect urinary stone formation. For example, urine pH below 6.0 may help reduce the tendency for calcium phosphate stones and pH greater than 6.0 may reduce the tendency for uric acid stone formation. Source: [facility] Current Interpretive Data was last revised on 2017 Protein, ur ql 1+(A) Negative [facility] Glucose, ur ql Negative Negative [facility] Ketones, ur Negative Negative [facility] Bilirubin, ur Negative Negative [facility] Blood, ur 1+(A) Negative [facility] Urobilinogen, ur <2.0 <2.0 mg/dL [facility] Nitrite, ur Negative Negative [facility] Leukocyte esterase, ur Negative Negative [facility] UA reflex comment Reflex to microscopic UA will be performed. [facility] Urine 12/31/2024 4:35 PM CDT 12/31/2024 6:21 PM CDT Devyn Palacios NP LAB URINE ORDERABLES Final Re sult Performing Organization Address City/[facility]/ZIP Co de Phone Number [facility] [place] [address] * (ABNORMAL) Urinalysis, microscopic only (12/31/2024 4:35 PM CDT) WBC, ur 0-5 0 - 5 /HPF RBC, ur 3-5(A) 0 - 2 /HPF [facility] Epithelial cells, squamous, ur 1-5 0 - 5 /HPF [facility] Bacteria, ur Trace(A) [facility] Mucous, ur Present(A) [facility] Hyaline casts, ur 11-20(A) 0 - 10 /LPF [facility] Granular casts, ur 11-20(A) 0 - 0 /LPF [facility] Urine 12/31/2024 4:35 PM CDT 12/31/2024 6:21 PM CDT Devyn Palacios NET MOBILE DEVELOPER LAB URINE ORDERABLES Final Re sult [facility] [place] [address] * Pneumonia PCR Tracheal aspirate (12/31/2024 4:34 PM CDT) C. pneumoniae DNA Not Detected Not Detected Legionella pneumophila DNA Not Detected Not Detected [facility] M. pneumoniae DNA Not Detected Not Detected [facility] Adenovirus DNA Not Detected Not Detected [facility] Coronavirus (229E, OC43, HKU1, NL63) RNA Not Detected Not Detected [facility] Metapneumovirus RNA Not Detected Not Detected [facility] Rhinovirus/Enterov irus RNA Not Detected Not Detected [facility] Influenza A RNA Not Detected Not Detected [facility] Influenza B RNA Not Detected Not Detected [facility] Parainfluenza virus (1-4) RNA Not Detected Not Detected [facility] RSV RNA Not Detected Not Detected [facility] Tracheal aspirate 12/31/2024 4:34 PM CDT 12/31/2024 8:15 PM CDT Narrative [facility] - 12/31/2024 9:52 PM CDT [...] rule out infection/co-infection with other organisms. The [employer] Pneumonia Panel is FDA cleared for lower respiratory tract specimens. The performance characteristics of this assay have been determined by [facility]. Current interpretive data was last revised on 2024. [facility] Hicksuong NET MOBILE DEVELOPER LAB MICROBIOLOGY - GENERAL OR DERABLES Final Result [facility] [place] [address] * (ABNORMAL) Pneumonia PCR with aerobic culture [...] seen on Gram stain: Gram Negative Bacilli [facility] Report Final Report: Greater than or equal to 100,000 colonies/ml of Escherichia coli Greater than or equal to 100,000 colonies/ml of Pseudomonas aeruginosa Plus growth of clinically insignificant bacterial katja. (.) [facility] Organism ESCHERICHIA COLI [facility] Organism PSEUDOMONAS AERUGINOSA [facility] Organism PLUS GROWTH OF CLINICALLY INSIGNIFICANT KATJA. [facility] Tracheal aspirate 12/31/2024 4:34 PM CDT 12/31/2024 6:04 PM CDT Myranda [facility] - 01/03/2025 2:38 PM CDT When rapid molecular testing results are reported, testing completed using the CheckInPage Pneumonia Panel. This molecular assay detects: Acinetobacter [...] results and susceptibility testing is recommended. The FocusArray Pneumonia Panel is cleared by the [place] Food and Drug Administration and its performance characteristics have been confirmed by the [facility]. The performance of the FocusArray Pneumonia Panel has not been established for [...] Pseudomonas aeruginosa Tobramycin INTERPRETATION Susceptible Devyn Palacios NET MOBILE DEVELOPER LAB MICROBIOLOGY - GENERAL OR DERABLES Final Result Performing Organization Address City/[facility]/ZIP Co de Phone Number CYNTHIA [facility] Department [place] [address] * POCT glucose (12/31/2024 4:09 PM CDT) [facility] Glucose, POC 124 70 - 199 mg/dL Blood 12/31/2024 4:09 PM CDT 12/31/2024 4:09 PM CDT Parth Dalton MD LAB POCT ORDERABLES - DEVICE Final Result Performing Organization Address [facility] Co de Phone Number CYNTHIA [facility] [place] [address] * TRANSTHORACIC ECHO (TTE) COMPLETE W DOPPLER/CF W CONTRAST (12/31/2024 3:30 PM CDT) [facility] Estimated EF 55-60 % CONS SCIMAGE EF Mod BP 58 % CONS SCIMAGE Anatomical Region Laterality Modality Ultrasound 12/31/2024 1:39 PM CDT Narrative 12/31/2024 4:40 PM CDT [facility] [place] [address] Transthoracic Echocardiographic Report Patient Name: MEGAN TITUS G : 1950 (74y 11m) Sex: M Study Date: 12/31/2024 01:39:18 PM Ht(Inch): 70 Wt(Lb): 216.05 BSA: 2.2 Slitter Creaser Slotter Helper: USR Location: [id number] Order Provider: DEVYN PALACIOS Heart Rate: 112 [...] Procedure Note Nel Ross MD - 12/31/2024 [facility] Card[facility] [place] [address] Transthoracic Echocardiographic Report Patient Name: MEGAN TITUS G : 1950 (74y 11m) Sex: M Study Date: 12/31/2024 01:39:18 PM Ht(Inch): 70 Wt(Lb): 216.05 BSA: 2.2 Slitter Creaser Slotter Helper: ANKIT Location: [id number] Order Provider: DEVYN PALACIOS Heart Rate: 112 [...] CDT 12/31/2024 1:41 PM CDT Magy Kaur NET MOBILE DEVELOPER LAB BLOOD ORDERABLES F inal Result Performing Organization Address [facility] Co de Phone Number [facility] Department [place] [address] * Potassium, whole blood (12/31/2024 1:35 PM CDT) Pathologist [facility] Potassium, bld 4.2 3.3 - 4.9 mmol/L Blood 12/31/2024 1:35 PM CDT 12/31/2024 1:41 PM CDT Jyotsna Salazar NET MOBILE DEVELOPER LAB BLOOD ORDERABLES Final Result Performing Organization Address [facility] de Phone Number [facility] Department [place] [address] * (ABNORMAL) Blood gas, venous (12/31/2024 1:35 PM CDT) pH, Venous 7.41 7.32 - 7.43 PCO2, Venous 36(L) 40 - [address] [facility] PO2, Venous [address] [facility] Comment: Interpretive Data No Reference Range Established Current Interpretive Data was last revised on 2017. HCO3 Venous, Calculated 23 20 - 30 mmol/L [facility] BE, venous -2 mmol/L [facility] Comment: Interpretive Data No Reference Range Established Current Interpretive Data was last revised on 2017. Blood 12/31/2024 1:35 PM CDT 12/31/2024 1:41 PM CDT us Devyn Palacios NET MOBILE DEVELOPER LAB BLOOD ORDERABLES Final Re sult Performing Organization Address [facility] Co de Phone Number [facility] [place] [place] [address] * Potassium, whole blood (12/31/2024 11:38 AM CDT) Potassium, bld 4.3 3.3 - 4.9 mmol/L Blood 12/31/2024 11:3 8 AM CDT 12/31/2024 11:45 AM CDT us Jyotsna Salazar NET MOBILE DEVELOPER LAB BLOOD ORDERABLES Final Result Performing Organization Address [facility] Co de Phone Number [facility] [place] [place] [address] * POCT glucose (12/31/2024 11:36 AM CDT) Glucose, POC 103 70 - 199 mg/dL Blood 12/31/2024 11:3 6 AM CDT 12/31/2024 11:36 AM CDT us Parth Dalton MD LAB POCT ORDERABLES - DEVICE Final Result Performing Organization Address [facility] Co de Phone Number [facility] Department [place] [address] * XR Abdomen 1 View AP (12/31/2024 [...] it. Electronically signed by: Dee Smith M.D. [facility] Thi Palacios NET MOBILE DEVELOPER IMG XR PROCEDURES Final Resul t * [...] Vasquez Yusuf M.D. us Thoa Thi Palacios NET MOBILE DEVELOPER IMG XR PROCEDURES Final Resul t * Oxyhemoglobin, central venous (12/31/2024 9:59 AM CDT) Oxyhemoglobin, CV 46.5 % Comment: Interpretive Data No reference range established. Current interpretive data was last revised 2019. Blood 12/31/2024 9:59 AM CDT 12/31/2024 10:05 AM CDT Devyn Palacios NET MOBILE DEVELOPER LAB BLOOD ORDERABLES Final Re sult [facility] [place] [address] * Potassium, whole blood (12/31/2024 9:59 AM CDT) Potassium, bld 4.6 3.3 - 4.9 mmol/L Blood 12/31/2024 9:59 AM CDT 12/31/2024 10:05 AM CDT Magy Lux Annettemagdalena NET MOBILE DEVELOPER LAB BLOOD ORDERABLES F inal Result Performing Organization Address City/[facility] Co de Phone Number [facility] Department [place] [address] * eGFR (12/31/2024 9:59 AM CDT) eGFR [...] CDT 12/31/2024 10:24 AM CDT Devyn Palacios NET MOBILE DEVELOPER LAB BLOOD ORDERABLES Final Re sult Performing Organization Address City/[facility] Co de Phone Number [facility] [place] [address] * Lactate, whole blood (12/31/2024 9:59 AM CDT) Lactate, bld 1.5 0.7 - 2.0 mmol/L Blood 12/31/2024 9:59 AM CDT 12/31/2024 10:05 AM CDT [facility] LAB BLOOD ORDERABLES Final Re sult Performing Organization Address [facility] [place] [address] * Protime-INR (12/31/2024 9:59 AM CDT) Pathologist [facility] PT 12.4 10.2 - 13.5 sec INR 1.10 0.90 - 1.[address] [facility] Comment: Interpretive data Oral anticoagulant therapeutic ranges: Venous thromboembolism prophylaxis or treatment: 2.0-3.0 CARDIOLOGY Standard range: 2.0-3.0 High-intensity range: 2.5-3.5 Refer to indication-specific guidelines for appropriate target ranges for prosthetic heart valve replacement. Current interpretive data was last revised on 2019. Blood 12/31/2024 9:59 AM CDT 12/31/2024 10:05 AM CDT Devyn Palacios NET MOBILE DEVELOPER LAB BLOOD ORDERABLES Final Re sult Performing Organization Address [facility] [place] [address] * (ABNORMAL) CBC without differential (12/31/2024 9:59 AM CDT) WBC 5.78 3.80 - 9.90 K/cumm Hgb 8.7(L) 13.0 - 17.5 g/dL [facility] Hct 26.2(L) 38.9 - 50.3 % [facility] Plt 96(L) 150 - 400 K/cumm [facility] MPV 11.1 9.1 - 12.[address] [facility] RBC 2.54(L) 4.30 - 5.80 M/cumm [facility] MCV 103.1(H) 81.3 - 96.[address] [facility] MCH 34.3(H) 27.1 - 33.[address] [facility] MCHC 33.2 32.3 - 35.7 g/dL [facility] RDW CV 14.6 11.1 - 14.9 % [facility] RDW SD 54.7(H) 35.7 - 48.[address] [facility] NRBC abs 0.00 0.00 - 0.01 K/cumm [facility] Blood 12/31/2024 9:59 AM CDT 12/31/2024 10:24 AM CDT Tindie Palacios LAB BLOOD ORDERABLES Final Re sult Performing Organization Address City/[facility]/ZIP Co de Phone Number [facility] [address] * Type and screen (12/31/2024 9:59 AM CDT) ABO Rh A Positive Becca, indirect Negative [facility] Blood 12/31/2024 9:59 AM CDT 12/31/2024 10:57 AM CDT Narrative [facility] - 12/31/2024 11:42 AM CDT Has the patient had Daratumumab or Isatuximab in the past 6 months?->Unknown Tindie Palacios LAB BLOOD BANK TEST ORDERABLE S Final Result Performing Organization Address City/[facility]/ZIP Co de Phone Number [facility] [place] [address] * Blood gas, venous (12/31/2024 9:59 AM CDT) pH, Venous 7.36 7.32 - 7.43 PCO2, Venous 40 40 - [address] [facility] PO2, Venous [address] [facility] Comment: Interpretive Data No Reference Range Established Current Interpretive Data was last revised on 2017. HCO3 Venous, Calculated 23 20 - 30 mmol/L [facility] BE, venous -2 mmol/L [facility] Comment: Interpretive Data No Reference Range Established Current Interpretive Data was last revised on 2017. Blood 12/31/2024 9:59 AM CDT 12/31/2024 10:05 AM CDT us Devyn Palacios NET MOBILE DEVELOPER LAB BLOOD ORDERABLES Final Re sult [facility] Department [place] [address] * (ABNORMAL) Comprehensive metabolic panel (12/31/2024 9:59 AM CDT) Sodium 137 135 - 145 mmol/L Potassium, pl 4.4 3.3 - 4.9 mmol/L [facility] Chloride 106 97 - 110 mmol/L [facility] CO2 22 22 - 32 mmol/L [facility] Anion gap 9 2 - 15 mmol/L [facility] BUN 23 6 - 25 mg/dL [facility] Creatinine 1.17 0.80 - 1.30 mg/dL [facility] Glucose 95 70 - 199 mg/dL [facility] Comment: Interpretive Data Fasting glucose [...] 2022. Calcium 8.4(L) 8.5 - 10.3 mg/dL [facility] Bilirubin, total 0.7 0.1 - 1.2 mg/dL [facility] Protein, pl 5.7(L) 6.5 - 8.5 g/dL [facility] Albumin 3.3(L) 3.5 - 5.0 g/dL [facility] Alk phos 30(L) 40 - 130 Units/L [facility] ALT 14 7 - 55 Units/L [facility] AST 32 10 - 50 Units/L [facility] Blood 12/31/2024 9:59 AM CDT 12/31/2024 10:24 AM CDT us Devyn Palacios NP LAB BLOOD ORDERABLES Final Re sult [facility] Department [place] [address] * Critical Care (12/31/2024 9:54 AM CDT) [...] plan with the ICU team and other medical/mining consultant staff, making frequent assessments and decisions [...] documenting in the medical record Devyn Palacios NET MOBILE DEVELOPER IN CLINIC/BEDSIDE ORDERABLES Final Result * POCT glucose (12/31/2024 8:36 AM CDT) Glucose, POC 92 70 - 199 mg/dL Blood 12/31/2024 8:36 AM CDT 12/31/2024 8:36 AM CDT Parth Dalton MD LAB POCT ORDERABLES - DEVICE Final Result Performing Organization Address [facility] Co de Phone Number [facility] Department [place] [address] * Oxyhemoglobin, central venous (12/31/2024 4:11 AM CDT) Oxyhemoglobin, CV 44.5 % Comment: Interpretive Data No reference range established. Current interpretive data was last revised 2019. Blood 12/31/2024 4:11 AM CDT 12/31/2024 4:31 AM CDT Magy Kaur NET MOBILE DEVELOPER LAB BLOOD ORDERABLES F inal Result Performing Organization Address [facility] Co de Phone Number [facility] Department [place] [address] * Potassium, whole blood (12/31/2024 4:11 AM CDT) Potassium, bld 3.9 3.3 - 4.9 mmol/L Blood 12/31/2024 4:11 AM CDT 12/31/2024 4:31 AM CDT Jyotsna Salazar NET MOBILE DEVELOPER LAB BLOOD ORDERABLES Final Result Performing Organization Address City/[facility] Co de Phone Number [facility] [place] [address] * POCT glucose (12/31/2024 4:09 AM CDT) [facility] Glucose, POC 114 70 - 199 mg/dL Blood 12/31/2024 4:09 AM CDT 12/31/2024 4:09 AM CDT Parth Dalton MD LAB POCT ORDERABLES - DEVICE Final Result Performing Organization Address [facility] Co de Phone Number [facility] Department [place] [address] * POCT glucose (12/30/2024 11:44 PM CDT) [facility] Glucose, POC 118 70 - 199 mg/dL Blood 12/30/2024 11:4 4 PM CDT 12/30/2024 11:44 PM CDT us Parth Dalton MD LAB POCT ORDERABLES - DEVICE Final Result Performing Organization Address [facility] Co de Phone Number [facility] [place] [place] [address] * (ABNORMAL) CBC without differential (12/30/2024 8:10 PM CDT) [facility] WBC 5.98 3.80 - 9.90 K/cumm Hgb 8.7(L) 13.0 - 17.5 g/dL [facility] Hct 25.8(L) 38.9 - 50.3 % [facility] Plt 84(L) 150 - 400 K/cumm [facility] MPV 10.9 9.1 - 12.[address] [facility] RBC 2.51(L) 4.30 - 5.80 M/cumm [facility] MCV 102.8(H) 81.3 - 96.[address] [facility] MCH 34.7(H) 27.1 - 33.[address] [facility] MCHC 33.7 32.3 - 35.7 g/dL [facility] RDW CV 14.6 11.1 - 14.9 % [facility] RDW SD 55.1(H) 35.7 - 48.[address] [facility] NRBC abs 0.00 0.00 - 0.01 K/cumm [facility] Blood 12/30/2024 8:10 PM CDT 12/30/2024 8:34 PM CDT Rosa Beltran NP LAB BLOOD ORDERABLES Final Re sult [facility] Department [place] [address] * Type and screen (12/30/2024 8:10 PM CDT) Pathologist [facility] Becca, indirect Negative ABO Rh A Positive [facility] Blood 12/30/2024 8:10 PM CDT 12/30/2024 8:35 PM CDT Narrative [facility] - 12/30/2024 9:29 PM CDT Has the patient had Daratumumab or Isatuximab in the past 6 months?->Unknown Rosa Beltran NP LAB BLOOD BANK TEST ORDERABLE S Final Result [facility] Department [place] [address] * eGFR (12/30/2024 8:08 PM CDT) Pathologist [facility] eGFR 60 >=60 mL/min/1. 73 m2 [...] Final Re sult Performing Organization Address [facility] Co de Phone Number [facility] Department [place] [address] * Phosphorus (12/30/2024 8:08 PM CDT) Phosphorus, pl 3.4 2.3 - 4.5 mg/dL Blood 12/30/2024 8:08 PM CDT 12/30/2024 8:34 PM CDT Marsha Villarreal NP LAB BLOOD ORDERABLES Final Re sult Performing Organization Address [facility] Co de Phone Number [facility] Department [place] [address] * Magnesium (12/30/2024 8:08 PM CDT) Magnesium 2.2 1.4 - 2.5 mg/dL Blood 12/30/2024 8:08 PM CDT 12/30/2024 8:34 PM CDT Marsha Villarreal NP LAB BLOOD ORDERABLES Final Re sult CYNTHIA [facility] Department [place] [address] * Basic metabolic panel (12/30/2024 8:08 PM CDT) Sodium 139 135 - 145 mmol/L Potassium, pl 4.1 3.3 - 4.9 mmol/L [facility] Chloride 106 97 - 110 mmol/L [facility] CO2 23 22 - 32 mmol/L [facility] Anion gap 10 2 - 15 mmol/L [facility] BUN 23 6 - 25 mg/dL [facility] Creatinine 1.25 0.80 - 1.30 mg/dL [facility] Glucose 112 70 - 199 mg/dL [facility] Comment: Interpretive Data Fasting glucose [...] 2022. Calcium 8.5 8.5 - 10.3 mg/dL [facility] Blood 12/30/2024 8:08 PM CDT 12/30/2024 8:34 PM CDT Marsha Villarreal NET MOBILE DEVELOPER LAB BLOOD ORDERABLES Final Re sult Performing Organization Address [facility]/ZIP Co de Phone Number CYNTHIA [facility] Department [place] [address] * POCT glucose (12/30/2024 7:41 PM CDT) Glucose, POC 94 70 - 199 mg/dL Blood 12/30/2024 7:41 PM CDT 12/30/2024 7:41 PM CDT us Parth Dalton MD LAB POCT ORDERABLES - DEVICE Final Result CYNTHIA [facility] Department [place] [address] * XR Chest 1 View (12/30/2024 6:25 [...] signed by: Toby Horan M.D. Mary Swift NET MOBILE DEVELOPER IMG XR PROCEDURES F inal Result * [...] gran abs 0.04 0.00 - 0.10 K/cumm [facility] Lymphocyte abs 0.33(L) 0.80 - 3.30 K/cumm [facility] Monocyte abs 0.50 0.20 - 0.80 K/cumm [facility] Eosinophil abs 0.01 0.00 - 0.50 K/cumm [facility] Basophil abs 0.01 0.00 - 0.10 K/cumm [facility] Neutrophil pct 87.2 % [facility] Comment: Interpretive Data Percent cell count reference ranges are not reported, since discordance with absolute values may lead to misinterpretation of CBC data. Current Interpretive Data was last revised on 2017. Imm gran pct 0.6 % [facility] Comment: Interpretive Data Percent cell count reference ranges are not reported, since discordance with absolute values may lead to misinterpretation of CBC data. Current Interpretive Data was last revised on 2017. Lymphocyte pct 4.8 % [facility] Comment: Interpretive Data Percent cell count reference ranges are not reported, since discordance with absolute values may lead to misinterpretation of CBC data. Current Interpretive Data was last revised on 2017. Monocyte pct 7.2 % [facility] Comment: Interpretive Data Percent cell count reference ranges are not reported, since discordance with absolute values may lead to misinterpretation of CBC data. Current Interpretive Data was last revised on 2017. Eosinophil pct 0.1 % [facility] Comment: Interpretive Data Percent cell count reference ranges are not reported, since discordance with absolute values may lead to misinterpretation of CBC data. Current Interpretive Data was last revised on 2017. Basophil pct 0.1 % [facility] Comment: Interpretive Data Percent cell count reference ranges are not reported, since discordance with absolute values may lead to misinterpretation of CBC data. Current Interpretive Data was last revised on 2017. Blood 12/30/2024 5:25 PM CDT 12/30/2024 5:37 PM CDT Marsha Villarreal NET MOBILE DEVELOPER LAB BLOOD ORDERABLES Final Re sult [facility] [place] [address] * (ABNORMAL) CBC with auto differential (12/30/2024 5:25 PM CDT) Pathologist [facility] WBC 6.90 3.80 - 9.90 K/cumm Hgb 8.6(L) 13.0 - 17.5 g/dL [facility] Hct 25.8(L) 38.9 - 50.3 % [facility] Plt 91(L) 150 - 400 K/cumm [facility] MPV 10.7 9.1 - 12.[address] [facility] RBC 2.48(L) 4.30 - 5.80 M/cumm [facility] MCV 104.0(H) 81.3 - 96.[address] [facility] MCH 34.7(H) 27.1 - 33.[address] [facility] MCHC 33.3 32.3 - 35.7 g/dL [facility] RDW CV 14.6 11.1 - 14.9 % [facility] RDW SD 55.3(H) 35.7 - 48.[address] [facility] NRBC abs 0.00 0.00 - 0.01 K/cumm [facility] Blood 12/30/2024 5:25 PM CDT 12/30/2024 5:37 PM CDT Marsha Villarreal NET MOBILE DEVELOPER LAB BLOOD ORDERABLES Final Re sult CYNTHIA [facility] [place] [address] * (ABNORMAL) eGFR (12/30/2024 5:21 PM CDT) Pathologist [facility] eGFR 59(L) >=60 mL/min/1. 73 m2 Comment: [...] CDT 12/30/2024 5:53 PM CDT Marsha Villarreal NET MOBILE DEVELOPER LAB BLOOD ORDERABLES Final Re sult [facility] Department [facility] [employer] [place], [place] [id number] * Magnesium (12/30/2024 5:21 PM CDT) [facility] Magnesium 2.2 1.4 - 2.5 mg/dL Blood 12/30/2024 5:21 PM CDT 12/30/2024 5:53 PM CDT Parth Dalton MD LAB BLOOD ORDERABLES Final Re sult [facility] [place] [address] * Basic metabolic panel (12/30/2024 5:21 PM CDT) Sodium 141 135 - 145 mmol/L Potassium, pl 4.4 3.3 - 4.9 mmol/L [facility] Chloride 108 97 - 110 mmol/L [facility] CO2 23 22 - 32 mmol/L [facility] Anion gap 10 2 - 15 mmol/L [facility] BUN 23 6 - 25 mg/dL [facility] Creatinine 1.27 0.80 - 1.30 mg/dL [facility] Glucose 118 70 - 199 mg/dL [facility] Comment: Interpretive Data Fasting glucose [...] 2022. Calcium 8.9 8.5 - 10.3 mg/dL [facility] Blood 12/30/2024 5:21 PM CDT 12/30/2024 5:53 PM CDT Marsha Villarreal NP LAB BLOOD ORDERABLES Final Re sult Performing Organization Address [facility] Co de Phone Number [facility] [place] [address] * Oxyhemoglobin, central venous (12/30/2024 5:20 PM CDT) [facility] Signature Oxyhemoglobin, CV 53.9 % Comment: Interpretive Data No reference range established. Current interpretive data was last revised 2019. Blood 12/30/2024 5:20 PM CDT 12/30/2024 5:33 PM CDT Marsha Villarreal NET MOBILE DEVELOPER LAB BLOOD ORDERABLES Final Re sult Performing Organization Address City/[facility] Co de Phone Number [facility] [place] [address] * Potassium, whole blood (12/30/2024 5:18 PM CDT) Potassium, bld 4.3 3.3 - 4.9 mmol/L Blood 12/30/2024 5:18 PM CDT 12/30/2024 5:33 PM CDT Marsha Villarreal NET MOBILE DEVELOPER LAB BLOOD ORDERABLES Final Re sult Performing Organization Address [facility] Co de Phone Number [facility] [place] [address] * POCT glucose (12/30/2024 4:29 PM CDT) Glucose, POC 94 70 - 199 mg/dL Blood 12/30/2024 4:29 PM CDT 12/30/2024 4:29 PM CDT Parth Dalton MD LAB POCT ORDERABLES - DEVICE Final Result Performing Organization Address [facility] de Phone Number [facility] [place] [address] * Oxyhemoglobin, central venous (12/30/2024 12:04 PM CDT) [facility] Oxyhemoglobin, CV 64.8 % Comment: Interpretive Data No reference range established. Current interpretive data was last revised 2019. Blood 12/30/2024 12:0 4 PM CDT 12/30/2024 12:12 PM CDT Magy Kaur NET MOBILE DEVELOPER LAB BLOOD ORDERABLES F inal Result Performing Organization Address [facility] Co de Phone Number [facility] [place] [place] [address] * Potassium, whole blood (12/30/2024 12:04 PM CDT) Potassium, bld 4.1 3.3 - 4.9 mmol/L Blood 12/30/2024 12:0 4 PM CDT 12/30/2024 12:12 PM CDT Parth Dalton MD LAB BLOOD ORDERABLES Final Re sult Performing Organization Address City/[facility]/ZIP Co de Phone Number [facility] [place] [address] * POCT glucose (12/30/2024 12:03 PM CDT) Glucose, POC 130 70 - 199 mg/dL Blood 12/30/2024 12:0 3 PM CDT 12/30/2024 12:03 PM CDT Parth Dalton MD LAB POCT ORDERABLES - DEVICE Final Result Performing Organization Address [facility] Co de Phone Number [facility] [place] [address] * Potassium, whole blood (12/30/2024 7:45 AM CDT) Potassium, bld 3.8 3.3 - 4.9 mmol/L Blood 12/30/2024 7:45 AM CDT 12/30/2024 7:52 AM CDT us Jyotsna Salazar NP LAB BLOOD ORDERABLES Final Result [facility] [place] [address] * POCT glucose (12/30/2024 7:45 AM CDT) Glucose, POC 132 70 - 199 mg/dL Blood 12/30/2024 7:45 AM CDT 12/30/2024 7:45 AM CDT us Parth Dalton MD LAB POCT ORDERABLES - DEVICE Final Result Performing Organization Address [facility] de Phone Number [facility] [place] [place] [address] * (ABNORMAL) Blood gas, arterial (12/30/2024 7:45 AM CDT) pH, Art 7.43 7.35 - 7.45 PCO2, Arterial 31(L) 35 - [address] [facility] PO2, Arterial 153(H) 83 - [address] [facility] HCO3 Art (Calculated) 21 20 - 30 mmol/L [facility] BE, art -3 mmol/L [facility] Comment: Interpretive Data No Reference Range Established Current Interpretive Data was last revised on 2017 O2 Sat Art (Measured) 100(H) 90 - 95 % [facility] Blood 12/30/2024 7:45 AM CDT 12/30/2024 7:52 AM CDT Magy Kaur NP LAB BLOOD ORDERABLES F inal Result Performing Organization Address [facility] de Phone Number [facility] [place] [address] * Critical Care (12/30/2024 6:54 AM CDT) [...] plan with the ICU team and other medical/mining consultant staff, making frequent assessments and decisions [...] DEVICE Final Result Performing Organization Address [facility] Co de Phone Number [facility] [place] [address] * Oxyhemoglobin, central venous (12/30/2024 1:10 AM CDT) Oxyhemoglobin, CV 73.6 % Comment: Interpretive Data No reference range established. Current interpretive data was last revised 2019. Blood 12/30/2024 1:10 AM CDT 12/30/2024 1:23 AM CDT us Magy Kaur NET MOBILE DEVELOPER LAB BLOOD ORDERABLES F inal Result Performing Organization Address City/[facility]/ZIP Co de Phone Number [facility] [place] [address] * POCT glucose (12/30/2024 12:16 AM CDT) Glucose, POC 134 70 - 199 mg/dL Blood 12/30/2024 12:1 6 AM CDT 12/30/2024 12:16 AM CDT Parth Dalton MD LAB POCT ORDERABLES - DEVICE Final Result Performing Organization Address City/[facility] Co de Phone Number [facility] Department [place] [address] * Potassium, whole blood (12/30/2024 12:12 AM CDT) Potassium, bld 4.2 3.3 - 4.9 mmol/L Blood 12/30/2024 12:1 2 AM CDT 12/30/2024 12:35 AM CDT Magy Kaur NP LAB BLOOD ORDERABLES F inal Result Performing Organization Address [facility] de Phone Number [facility] [place] [address] * eGFR (12/30/2024 12:12 AM CDT) eGFR [...] CDT 12/30/2024 12:40 AM CDT Magy Kaur NET MOBILE DEVELOPER LAB BLOOD ORDERABLES F inal Result Performing Organization Address [facility] de Phone Number [facility] [place] [place] [address] * (ABNORMAL) CBC without differential (12/30/2024 12:12 AM CDT) WBC 5.93 3.80 - 9.90 K/cumm Hgb 9.1(L) 13.0 - 17.5 g/dL [facility] Hct 26.7(L) 38.9 - 50.3 % [facility] Plt 87(L) 150 - 400 K/cumm [facility] MPV 10.7 9.1 - 12.[address] [facility] RBC 2.60(L) 4.30 - 5.80 M/cumm [facility] MCV 102.7(H) 81.3 - 96.[address] [facility] MCH 35.0(H) 27.1 - 33.[address] [facility] MCHC 34.1 32.3 - 35.7 g/dL [facility] RDW CV 14.7 11.1 - 14.9 % [facility] RDW SD 55.4(H) 35.7 - 48.[address] [facility] NRBC abs 0.00 0.00 - 0.01 K/cumm [facility] Blood 12/30/2024 12:1 2 AM CDT 12/30/2024 12:41 AM CDT Magy Kaur NET MOBILE DEVELOPER LAB BLOOD ORDERABLES F inal Result Performing Organization Address [facility]/ZIP Co de Phone Number [facility] [place] [place] [address] * Phosphorus (12/30/2024 12:12 AM CDT) Pathologist [facility] Phosphorus, pl 3.8 2.3 - 4.5 mg/dL Blood 12/30/2024 12:1 2 AM CDT 12/30/2024 12:40 AM CDT Magy Kaur NET MOBILE DEVELOPER LAB BLOOD ORDERABLES F inal Result Performing Organization Address [facility] de Phone Number [facility] Department [place] [address] * Magnesium (12/30/2024 12:12 AM CDT) [facility] Magnesium 2.5 1.4 - 2.5 mg/dL Blood 12/30/2024 12:1 2 AM CDT 12/30/2024 12:40 AM CDT Magy Kaur NP LAB BLOOD ORDERABLES F inal Result Performing Organization Address [facility] de Phone Number [facility] Department [place] [address] * (ABNORMAL) Blood gas, arterial (12/30/2024 12:12 AM CDT) [facility] pH, Art 7.39 7.35 - 7.45 PCO2, Arterial 36 35 - [address] [facility] PO2, Arterial 81(L) 83 - [address] [facility] HCO3 Art (Calculated) 22 20 - 30 mmol/L [facility] BE, art -3 mmol/L [facility] Comment: Interpretive Data No Reference Range Established Current Interpretive Data was last revised on 2017 O2 Sat Art (Measured) 96(H) 90 - 95 % [facility] Blood 12/30/2024 12:1 2 AM CDT 12/30/2024 12:35 AM CDT Magy Kaur NET MOBILE DEVELOPER LAB BLOOD ORDERABLES F inal Result Performing Organization Address [facility]/State/ZIP Co de Phone Number [facility] [place] [address] * Basic metabolic panel (12/30/2024 12:12 AM CDT) Sodium 140 135 - 145 mmol/L Potassium, pl 4.3 3.3 - 4.9 mmol/L [facility] Chloride 108 97 - 110 mmol/L [facility] CO2 22 22 - 32 mmol/L [facility] Anion gap 10 2 - 15 mmol/L [facility] BUN 19 6 - 25 mg/dL [facility] Creatinine 1.11 0.80 - 1.30 mg/dL [facility] Glucose 126 70 - 199 mg/dL [facility] Comment: Interpretive Data Fasting glucose [...] 2022. Calcium 9.4 8.5 - 10.3 mg/dL [facility] Blood 12/30/2024 12:1 2 AM CDT 12/30/2024 12:40 AM CDT Magy Kaur NET MOBILE DEVELOPER LAB BLOOD ORDERABLES F inal Result [facility] [place] [address] * Oxyhemoglobin, central venous (12/29/2024 9:22 PM CDT) Oxyhemoglobin, CV 59.4 % Comment: Interpretive Data No reference range established. Current interpretive data was last revised 2019. Blood 12/29/2024 9:22 PM CDT 12/29/2024 9:44 PM CDT us Magy Elise Annettemagdalena NET MOBILE DEVELOPER LAB BLOOD ORDERABLES F inal Result CYNTHIA [facility] [place] [address] * XR Chest 1 View (12/29/2024 8:27 PM CDT) Anatomical Region Laterality Modality Body, Chest N/A Computed Radiogr aphy 12/30/2024 6:48 AM CDT Impressions 12/30/2024 6:48 AM CDT Sternal fixation plates, left atrial appendage clip, and tracheostomy tube again seen. Removal of [place] catheter. Right internal jugular catheter tip in [...] and tracheostomy tube again seen. Removal of [place] catheter. Right internal jugular catheter tip in [...] signed by: Yaya Ahumada M.D. Mary Swift NET MOBILE DEVELOPER IMG XR PROCEDURES F inal Result * POCT glucose (12/29/2024 7:43 PM CDT) Glucose, POC 131 70 - 199 mg/dL Blood 12/29/2024 7:43 PM CDT 12/29/2024 7:43 PM CDT us Parth Dalton MD LAB POCT ORDERABLES - DEVICE Final Result [facility] Department [place] [address] * (ABNORMAL) POC Blood Gas and Chemistries, Arterial - (12/29/2024 6:27 PM CDT) Pathologist [facility] pH, Art POC 7.34(L) 7.35 - 7.45 pCO2, Art POC 39 35 - [address] [facility] pO2, Art POC 91 83 - [address] [facility] Na, POC 140 135 - 145 mmol/L [facility] K POC 4.1 3.3 - 4.9 mmol/L [facility] Comment: Interpretive Data Not all point of care methods assess for hemolysis. Confirm with instrument and retest K+ if not consistent with clinical signs and symptoms. Current Interpretive Data was last revised on 2023. Cl, POC 113(H) 97 - 110 mmol/L [facility] Ionized Ca, POC 4.64 4.50 - 5.10 mg/dL [facility] Glucose, POC 126 70 - 199 mg/dL [facility] Lactate POC 1.1 0.7 - 2.0 mmol/L [facility] SO2 (felipe) arterial 99(H) 90 - 95 % [facility] Base excess, POC -4.4 mmol/L [facility] HCO3, Art POC 21 20 - 30 mmol/L [facility] Hct, POC 28.0(L) 41.4 - 51.6 % [facility] Total Hb, POC 9.3(L) 13.8 - 17.2 g/dL [facility] Blood 12/29/2024 6:27 PM CDT 12/29/2024 6:27 PM CDT Result [facility] Parth Dalton MD LAB POCT ORDERABLES - DEVICE Final Result Performing Organization Address [facility] Co de Phone Number [facility] [place] [place] [address] * POCT glucose (12/29/2024 4:05 PM CDT) Glucose, POC 131 70 - 199 mg/dL Blood 12/29/2024 4:05 PM CDT 12/29/2024 4:05 PM CDT Result [facility] Parth Dalton MD LAB POCT ORDERABLES - DEVICE Final Result Performing Organization Address [facility] Co de Phone Number [facility] [place] [address] * Oxyhemoglobin, central venous (12/29/2024 4:00 PM CDT) Oxyhemoglobin, CV 68.2 % Comment: Interpretive Data No reference range established. Current interpretive data was last revised 2019. Blood 12/29/2024 4:00 PM CDT 12/29/2024 4:15 PM CDT Magy Kaur NET MOBILE DEVELOPER LAB BLOOD ORDERABLES F inal Result Performing Organization Address [facility] Co de Phone Number [facility] [place] [address] * Potassium, whole blood (12/29/2024 4:00 PM CDT) Potassium, bld 4.3 3.3 - 4.9 mmol/L Blood 12/29/2024 4:00 PM CDT 12/29/2024 4:16 PM CDT Parth Dalton MD LAB BLOOD ORDERABLES Final Re sult Performing Organization Address [facility] Co de Phone Number CYNTHIA MURPHY [facility] Department [place] [address] * eGFR (12/29/2024 4:00 PM CDT) eGFR [...] Final Re sult Performing Organization Address [facility]/ZIP Co de Phone Number CYNTHIA MURPHY [facility] [place] [address] * Triglycerides (12/29/2024 4:00 PM CDT) Triglycerides [...] PM CDT 12/29/2024 4:16 PM CDT Narrative [facility] - 12/29/2024 4:52 PM CDT While on propofol infusion. Magy Kaur NET MOBILE DEVELOPER LAB BLOOD ORDERABLES F inal Result Performing Organization Address City/[facility]/ZIP Co de Phone Number [facility] [place] [address] * (ABNORMAL) Magnesium (12/29/2024 4:00 PM CDT) Magnesium 2.9(H) 1.4 - 2.5 mg/dL Blood 12/29/2024 4:00 PM CDT 12/29/2024 4:22 PM CDT Seema Palma DNP LAB BLOOD ORDERABLES Fi nal Result Performing Organization Address City/[facility]/ZIP Co de Phone Number [facility] [place] [address] * (ABNORMAL) Basic metabolic panel (12/29/2024 4:00 PM CDT) Sodium 144 135 - 145 mmol/L Potassium, pl 4.6 3.3 - 4.9 mmol/L [facility] Chloride 111(H) 97 - 110 mmol/L [facility] CO2 24 22 - 32 mmol/L [facility] Anion gap 9 2 - 15 mmol/L [facility] BUN 21 6 - 25 mg/dL [facility] Creatinine 1.24 0.80 - 1.30 mg/dL [facility] Glucose 121 70 - 199 mg/dL [facility] Comment: Interpretive Data Fasting glucose [...] 2022. Calcium 8.5 8.5 - 10.3 mg/dL [facility] Blood 12/29/2024 4:00 PM CDT 12/29/2024 4:16 PM CDT Parth Dalton MD LAB BLOOD ORDERABLES Final Re sult [facility] [place] [address] * POCT glucose (12/29/2024 11:57 AM CDT) Glucose, POC 111 70 - 199 mg/dL Blood 12/29/2024 11:5 7 AM CDT 12/29/2024 11:57 AM CDT Parth Dalton MD LAB POCT ORDERABLES - DEVICE Final Result Performing Organization Address City/[facility]/ZIP Co de Phone Number [facility] Department [place] [address] * ECG 12 lead (12/29/2024 10:15 AM CDT) Ventricular Rate EKG/Min 95 BPM [facility] Atrial Rate 95 BPM [facility] [place]-Interval (MSEC) 170 ms [facility] QRS-Interval (MSEC) 80 ms [facility] QT-Interval (MSEC) 368 ms [facility] QTc 462 ms [facility] P [place] 38 degrees [facility] R [place] -31 degrees [facility] T [place] -6 degrees [facility] Diagnosis Sinus rhythm with occasional ventricular-pac ed complexes and with occasional Premature ventricular complexes and Premature atrial complexes Left axis deviation Inferior infarct , age undetermined ST & T wave abnormality, consider anterior ischemia Abnormal ECG When compared with ECG of 26-DEC-2024 13:43, Electronic ventricular pacemaker has replaced Atrial fibrillation Confirmed by JENAE GRACE M.D ([id number]) on 01/01/2025 6:10:53 PM [facility] 12/29/2024 10:1 5 AM CDT 01/01/2025 6:10 PM CDT Magy Kaur NET MOBILE DEVELOPER ECG ORDERABLES Final Result [facility] * Critical Care (12/29/2024 8:27 AM CDT) [...] plan with the ICU team and other medical/mining consultant staff, making frequent assessments and decisions [...] CDT 12/29/2024 8:00 AM CDT Magy Kaur NET MOBILE DEVELOPER LAB BLOOD ORDERABLES F inal Result Performing Organization Address City/[facility]/ZIP Co de Phone Number [facility] [place] [address] * Potassium, whole blood (12/29/2024 7:51 AM CDT) Potassium, bld 4.8 3.3 - 4.9 mmol/L Comment:Hemolyzed; results m ay be falsely elevated. Blood 12/29/2024 7:51 AM CDT 12/29/2024 8:00 AM CDT Jyotsna Salazar NET MOBILE DEVELOPER LAB BLOOD ORDERABLES Final Result [facility] [place] [address] * Lactate, whole blood (12/29/2024 7:51 AM CDT) Lactate, bld 1.0 0.7 - 2.0 mmol/L Blood 12/29/2024 7:51 AM CDT 12/29/2024 8:00 AM CDT us Seema Palma DNP LAB BLOOD ORDERABLES Fi nal Result [facility] [place] [place] [address] * (ABNORMAL) Blood gas, arterial (12/29/2024 7:51 AM CDT) Pathologist [facility] pH, Art 7.34(L) 7.35 - 7.45 PCO2, Arterial 40 35 - [address] [facility] PO2, Arterial 150(H) 83 - [address] [facility] HCO3 Art (Calculated) 22 20 - 30 mmol/L [facility] BE, art -4 mmol/L [facility] Comment: Interpretive Data No Reference Range Established Current Interpretive Data was last revised on 2017 O2 Sat Art (Measured) 99(H) 90 - 95 % [facility] Blood 12/29/2024 7:51 AM CDT 12/29/2024 8:00 AM CDT us Magy Kaur NET MOBILE DEVELOPER LAB BLOOD ORDERABLES F inal Result Performing Organization Address City/[facility]/ZIP Co de Phone Number [facility] Department [place] [address] * POCT glucose (12/29/2024 7:50 AM CDT) [facility] Glucose, POC 119 70 - 199 mg/dL Blood 12/29/2024 7:50 AM CDT 12/29/2024 7:50 AM CDT us Parth Dalton MD LAB POCT ORDERABLES - DEVICE Final Result Performing Organization Address City/[facility]/ZIP Co de Phone Number [facility] [place] [address] * Oxyhemoglobin, pulmonary artery (12/29/2024 5:49 AM CDT) Pathologist [facility] Oxyhemoglobin, PA 55.8 % Comment: Interpretive Data No reference range established. Current interpretive data was last revised 2019. Blood 12/29/2024 5:49 AM CDT 12/29/2024 6:01 AM CDT Magy Kaur NET MOBILE DEVELOPER LAB BLOOD ORDERABLES F inal Result Performing Organization Address [facility] de Phone Number [facility] [place] [place] [address] * Transfuse RBC (12/29/2024 4:50 AM CDT) Blood Mary Swift NET MOBILE DEVELOPER BLOOD TRANSFUSION O RDERABLES Final Result Performing Organization Address [facility] de Phone Number [facility] [place] [address] * POCT glucose (12/29/2024 3:44 AM CDT) [facility] Glucose, POC 139 70 - 199 mg/dL Blood 12/29/2024 3:44 AM CDT 12/29/2024 3:44 AM CDT Parth Dalton MD LAB POCT ORDERABLES - DEVICE Final Result Performing Organization Address [facility] de Phone Number [facility] [place] [address] * Prepare RBC: 1 Units (12/29/2024 2:27 AM CDT) Pathologist [facility] Product code [id number] Unit Number [id number] [facility] Product Blood Type APOS [facility] Dispense Status PRESUMED TRANSFUSED [facility] Blood 12/29/2024 2:27 AM CDT 12/29/2024 2:26 AM CDT Narrative [facility] - 12/29/2024 4:01 PM CDT Are special requirements needed? (All products are leukoreduced and CMV- safe)- >No Date required:-[id number] [facility] # of [id number] Reasons:-Cardiovascular disease, Hgb <8 g/dL} Mary Swift NET MOBILE DEVELOPER BLOOD BANK PRODUCT ORDERABLES Final Result Performing Organization Address City/[facility]/ZIP Co de Phone Number [facility] [place] [address] * Potassium, whole blood (12/29/2024 12:18 AM CDT) Potassium, bld 4.6 3.3 - 4.9 mmol/L Blood 12/29/2024 12:1 8 AM CDT 12/29/2024 12:26 AM CDT Magy Kaur NET MOBILE DEVELOPER LAB BLOOD ORDERABLES F inal Result Performing Organization Address [facility] Co de Phone Number [facility] [place] [place] [address] * eGFR (12/29/2024 12:18 AM CDT) eGFR [...] CDT 12/29/2024 12:34 AM CDT Magy Kaur NET MOBILE DEVELOPER LAB BLOOD ORDERABLES F inal Result Performing Organization Address [facility] Co de Phone Number [facility] [place] [address] * (ABNORMAL) CBC without differential (12/29/2024 12:18 AM CDT) [facility] WBC 4.90 3.80 - 9.90 K/cumm Hgb 7.7(L) 13.0 - 17.5 g/dL [facility] Hct 23.2(L) 38.9 - 50.3 % [facility] Plt 94(L) 150 - 400 K/cumm [facility] MPV 10.1 9.1 - 12.[address] [facility] RBC 2.24(L) 4.30 - 5.80 M/cumm [facility] MCV 103.6(H) 81.3 - 96.[address] [facility] MCH 34.4(H) 27.1 - 33.[address] [facility] MCHC 33.2 32.3 - 35.7 g/dL [facility] RDW CV 14.1 11.1 - 14.9 % [facility] RDW SD 53.0(H) 35.7 - 48.[address] [facility] NRBC abs 0.00 0.00 - 0.01 K/cumm [facility] Blood 12/29/2024 12:1 8 AM CDT 12/29/2024 12:33 AM CDT Magy Kaur NP LAB BLOOD ORDERABLES F inal Result Performing Organization Address [facility]/ZIP Co de Phone Number [facility] [place] [place] [address] * Type and screen (12/29/2024 12:18 AM CDT) Becca, indirect Negative ABO Rh A Positive [facility] Blood 12/29/2024 12:1 8 AM CDT 12/29/2024 12:41 AM CDT Narrative [facility] - 12/29/2024 1:41 AM CDT Has the patient had Daratumumab or Isatuximab in the past 6 months?->Unknown Magy Kaur NP LAB BLOOD BANK TEST OR DERABLES Final Result Performing Organization Address City/[facility] Co de Phone Number [facility] [place] [place] [address] * Phosphorus (12/29/2024 12:18 AM CDT) Pathologist [facility] Phosphorus, pl 2.5 2.3 - 4.5 mg/dL Blood 12/29/2024 12:1 8 AM CDT 12/29/2024 12:34 AM CDT Magy Kaur NP LAB BLOOD ORDERABLES F inal Result Performing Organization Address [facility] de Phone Number [facility] [place] [address] * Magnesium (12/29/2024 12:18 AM CDT) [facility] Magnesium 2.5 1.4 - 2.5 mg/dL Blood 12/29/2024 12:1 8 AM CDT 12/29/2024 12:34 AM CDT Magy Kaur NET MOBILE DEVELOPER LAB BLOOD ORDERABLES F inal Result Performing Organization Address City/[facility] Co de Phone Number [facility] [place] [address] * (ABNORMAL) Blood gas, arterial (12/29/2024 12:18 AM CDT) pH, Art 7.40 7.35 - 7.45 PCO2, Arterial 35 35 - [address] [facility] PO2, Arterial 135(H) 83 - [address] [facility] HCO3 Art (Calculated) 23 20 - 30 mmol/L [facility] BE, art -2 mmol/L [facility] Comment: Interpretive Data No Reference Range Established Current Interpretive Data was last revised on 2017 O2 Sat Art (Measured) 99(H) 90 - 95 % [facility] Blood 12/29/2024 12:1 8 AM CDT 12/29/2024 12:26 AM CDT Magy Kaur NET MOBILE DEVELOPER LAB BLOOD ORDERABLES F inal Result [facility] [place] [address] * (ABNORMAL) Basic metabolic panel (12/29/2024 12:18 AM CDT) Sodium 142 135 - 145 mmol/L Potassium, pl 4.9 3.3 - 4.9 mmol/L [facility] Chloride 110 97 - 110 mmol/L [facility] CO2 23 22 - 32 mmol/L [facility] Anion gap 9 2 - 15 mmol/L [facility] BUN 19 6 - 25 mg/dL [facility] Creatinine 1.23 0.80 - 1.30 mg/dL [facility] Glucose 128 70 - 199 mg/dL [facility] Comment: Interpretive Data Fasting glucose [...] 2022. Calcium 8.4(L) 8.5 - 10.3 mg/dL [facility] Blood 12/29/2024 12:1 8 AM CDT 12/29/2024 12:34 AM CDT Magy Kaur NET MOBILE DEVELOPER LAB BLOOD ORDERABLES F inal Result Performing Organization Address [facility]/ZIP Co de Phone Number [facility] Department [place] [address] * POCT glucose (12/29/2024 12:17 AM CDT) [facility] Signature Glucose, POC 154 70 - 199 mg/dL Blood 12/29/2024 12:1 7 AM CDT 12/29/2024 12:17 AM CDT Parth Dalton MD LAB POCT ORDERABLES - DEVICE Final Result Performing Organization Address [facility] de Phone Number [facility] Department [place] [address] * XR Chest 1 View (12/28/2024 9:38 PM CDT) Anatomical Region Laterality Modality Body, Chest N/A Computed Radiogr aphy 12/29/2024 7:14 AM CDT Impressions 12/29/2024 7:14 AM CDT The current study is compared with the prior radiograph dated 12/28/2024. Tracheostomy is in place. Sternal plates are present. A Akron-Salma catheter is in place, tip overlies the [...] in place. Sternal plates are present. A [place]-Salma catheter is in place, tip overlies the [...] signed by: Meghan Rios M.D. Mary Swift NET MOBILE DEVELOPER IMG XR PROCEDURES F inal Result * Infection Prevention Blanche auris PCR, surveillance Axilla/Groin (12/28/2024 8:22 PM CDT) Blanche auris DNA Not Detected Not Detected [facility] Comment: Interpretive Data Testing performed by [facility] using the Daquan flaquita 6800 Blanche auris assay. This assay detects DNA from Blanche auris using Real-Time PCR. This assay is laboratory developed and is not cleared by the [place] Food and Drug Administration. The performance characteristics have been verified by the [facility]. Axilla/Groin 12/28/2024 8:22 PM CDT 12/28/2024 9:23 PM CDT Narrative [facility] - 12/29/2024 12:36 PM CDT Order placed by [facility] due to ring surveillance. us Instant Order Generic Provider LAB MICROBIOLOGY - GENERAL ORDERABLES Final Result [facility] Department [place] [address] [facility] * (ABNORMAL) Blood gas, arterial (12/28/2024 8:22 PM CDT) Pathologist [facility] pH, Art 7.40 7.35 - 7.45 PCO2, Arterial 34(L) 35 - [address] [facility] PO2, Arterial 160(H) 83 - [address] [facility] HCO3 Art (Calculated) 22 20 - 30 mmol/L [facility] BE, art -3 mmol/L [facility] Comment: Interpretive Data No Reference Range Established Current Interpretive Data was last revised on 2017 O2 Sat Art (Measured) 100(H) 90 - 95 % [facility] Blood 12/28/2024 8:22 PM CDT 12/28/2024 8:27 PM CDT Magy Kaur NP LAB BLOOD ORDERABLES F inal Result Performing Organization Address [facility] Co de Phone Number [facility] Department [place] [address] * POCT glucose (12/28/2024 7:43 PM CDT) [facility] Glucose, POC 134 70 - 199 mg/dL Blood 12/28/2024 7:43 PM CDT 12/28/2024 7:43 PM CDT Parth Dalton MD LAB POCT ORDERABLES - DEVICE Final Result Performing Organization Address [facility] Co de Phone Number [facility] Department [place] [address] * (ABNORMAL) Magnesium (12/28/2024 6:37 PM CDT) [facility] Magnesium 2.9(H) 1.4 - 2.5 mg/dL Blood 12/28/2024 6:37 PM CDT 12/28/2024 6:58 PM CDT Magy Kaur NP LAB BLOOD ORDERABLES F inal Result [facility] Department [place] [address] * Critical Care (12/28/2024 6:27 PM CDT) [...] plan with the ICU team and other medical/mining consultant staff, making frequent assessments and decisions [...] documenting in the medical record Mary Swift NET MOBILE DEVELOPER IN CLINIC/BEDSIDE O RDERABLES Final Result * (ABNORMAL) POC Blood Gas and Chemistries, Arterial - (12/28/2024 5:25 PM CDT) [facility] pH, Art POC 7.31(L) 7.35 - 7.45 pCO2, Art POC 40 35 - [address] [facility] pO2, Art POC 88 83 - [address] [facility] Na, POC 141 135 - 145 mmol/L [facility] K POC 3.9 3.3 - 4.9 mmol/L [facility] Comment: Interpretive Data Not all point of care methods assess for hemolysis. Confirm with instrument and retest K+ if not consistent with clinical signs and symptoms. Current Interpretive Data was last revised on 2023. Cl, POC 114(H) 97 - 110 mmol/L [facility] Ionized Ca, POC 4.59 4.50 - 5.10 mg/dL [facility] Glucose, POC 122 70 - 199 mg/dL [facility] Lactate POC 1.4 0.7 - 2.0 mmol/L [facility] SO2 (felipe) arterial 98(H) 90 - 95 % [facility] Base excess, POC -5.7 mmol/L [facility] HCO3, Art POC 20 20 - 30 mmol/L [facility] Hct, POC 28.0(L) 41.4 - 51.6 % [facility] Total Hb, POC 9.3(L) 13.8 - 17.2 g/dL [facility] Blood 12/28/2024 5:25 PM CDT 12/28/2024 5:25 PM CDT us Parth Dalton MD LAB POCT ORDERABLES - DEVICE Final Result [facility] Department [place] [address] * (ABNORMAL) POC Blood Gas and Chemistries, Arterial - (12/28/2024 4:24 PM CDT) pH, Art POC 7.26(L) 7.35 - 7.45 pCO2, Art POC 45 35 - [address] [facility] pO2, Art POC 74(L) 83 - [address] [facility] Na, POC 141 135 - 145 mmol/L [facility] K POC 4.3 3.3 - 4.9 mmol/L [facility] Comment: Interpretive Data Not all point of care methods assess for hemolysis. Confirm with instrument and retest K+ if not consistent with clinical signs and symptoms. Current Interpretive Data was last revised on 2023. Cl, POC 114(H) 97 - 110 mmol/L [facility] Ionized Ca, POC 4.70 4.50 - 5.10 mg/dL [facility] Glucose, POC 123 70 - 199 mg/dL [facility] Lactate POC 1.9 0.7 - 2.0 mmol/L [facility] SO2 (felipe) arterial 96(H) 90 - 95 % [facility] Base excess, POC -6.6 mmol/L [facility] HCO3, Art POC 20 20 - 30 mmol/L [facility] Hct, POC 30.0(L) 41.4 - 51.6 % [facility] Total Hb, POC 10.0(L) 13.8 - 17.2 g/dL [facility] Blood 12/28/2024 4:24 PM CDT 12/28/2024 4:24 PM CDT us Parth Dalton MD LAB POCT ORDERABLES - DEVICE Final Result [facility] Department [place] [address] * XR Abdomen 1 View AP (12/28/2024 [...] Bob Falcon M.D. us Magy Lux Annettemagdalena NET MOBILE DEVELOPER IMG XR PROCEDURES Raquel l Result * [...] pericardial drainage tubes project across the body. Akron-Salma catheter projects over the heart. Thoracostomy tube. [...] pericardial drainage tubes project across the body. Akron-Salma catheter projects over the heart. Thoracostomy tube. Sternal plate. Dictated by: Silvio Palafox M.D. The radiology attending physician has personally reviewed this study, and had reviewed and/or edited this written report and agrees with it. Electronically signed by: James Graham M.D. Magy Kaur NET MOBILE DEVELOPER IMG XR PROCEDURES Raquel l Result * XR Chest 1 View (12/28/2024 3:50 PM CDT) Anatomical Region Laterality Modality Body, Chest N/A Digital Radiogra phy 12/28/2024 4:20 PM CDT Impressions 12/28/2024 4:20 PM CDT Comparison 12/27/2024 2:58 PM. Tracheostomy tube remains in place. New sternal plates seen. Left atrial appendage clip in place. Akron-Salma catheter placed with tip projecting over the [...] seen. Left atrial appendage clip in place. Akron-Salma catheter placed with tip projecting over the [...] Art POC 46(H) 35 - 45 mmHg [facility] pO2, Art POC 63(L) 83 - 108 mmHg [facility] Na, POC 143 135 - 145 mmol/L [facility] K POC 4.0 3.3 - 4.9 mmol/L [facility] Comment: Interpretive Data Not all point of care methods assess for hemolysis. Confirm with instrument and retest K+ if not consistent with clinical signs and symptoms. Current Interpretive Data was last revised on 2023. Cl, POC 115(H) 97 - 110 mmol/L [facility] Ionized Ca, POC 4.56 4.50 - 5.10 mg/dL [facility] Glucose, POC 116 70 - 199 mg/dL [facility] Lactate POC 1.9 0.7 - 2.0 mmol/L [facility] SO2 (felipe) arterial 91 90 - 95 % [facility] Base excess, POC -6.3 mmol/L [facility] HCO3, Art POC 21 20 - 30 mmol/L [facility] Hct, POC 30.0(L) 41.4 - 51.6 % [facility] Total Hb, POC 9.9(L) 13.8 - 17.2 g/dL [facility] Blood 12/28/2024 3:42 PM CDT 12/28/2024 3:42 PM CDT us Parth Dalton MD LAB POCT ORDERABLES - DEVICE Final Result Performing Organization Address [facility] de Phone Number [facility] [place] [address] * Oxyhemoglobin, pulmonary artery (12/28/2024 2:59 PM CDT) Oxyhemoglobin, PA 48.6 % Comment: Interpretive Data No reference range established. Current interpretive data was last revised 2019. Blood 12/28/2024 2:59 PM CDT 12/28/2024 3:04 PM CDT us Magy Kaur NP LAB BLOOD ORDERABLES F inal Result Performing Organization Address [facility] Co de Phone Number [facility] [place] [address] * Calcium, ionized, whole blood (12/28/2024 2:59 PM CDT) Ca, ionized, bld 4.65 4.50 - 5.10 mg/dL Blood 12/28/2024 2:59 PM CDT 12/28/2024 3:04 PM CDT us Parth Dalton MD LAB BLOOD ORDERABLES Final Re sult Performing Organization Address [facility] Co de Phone Number [facility] [place] [address] * Critical Care (12/28/2024 2:52 PM CDT) [...] plan with the ICU team and other medical/mining consultant staff, making frequent assessments and decisions [...] Final Re sult Performing Organization Address [facility] [place] [address] * aPTT (12/28/2024 2:49 PM CDT) aPTT [...] ORDERABLES Final Re sult Performing Organization Address [facility] [place] [address] * Protime-INR (12/28/2024 2:49 PM CDT) PT 13.1 10.2 - 13.5 sec INR 1.16 0.90 - 1.[address] [facility] Comment: Interpretive data Oral anticoagulant [...] Final Re sult Performing Organization Address [facility] [place] [address] * (ABNORMAL) CBC without differential (12/28/2024 2:49 PM CDT) WBC 4.40 3.80 - 9.90 K/cumm Hgb 9.4(L) 13.0 - 17.5 g/dL [facility] Comment:Hemoglobin delta due to surgical procedure. Hct 27.2(L) 38.9 - 50.3 % [facility] Plt 93(L) 150 - 400 K/cumm [facility] MPV 10.1 9.1 - 12.[address] [facility] RBC 2.64(L) 4.30 - 5.80 M/cumm [facility] MCV 103.0(H) 81.3 - 96.[address] [facility] MCH 35.6(H) 27.1 - 33.[address] [facility] MCHC 34.6 32.3 - 35.7 g/dL [facility] RDW CV 14.3 11.1 - 14.9 % [facility] RDW SD 53.7(H) 35.7 - 48.[address] [facility] NRBC abs 0.00 0.00 - 0.01 K/cumm [facility] Blood 12/28/2024 2:49 PM CDT 12/28/2024 3:07 PM CDT Parth Dalton MD LAB BLOOD ORDERABLES Final Re sult Performing Organization Address [facility] de Phone Number [facility] [place] [address] * (ABNORMAL) Magnesium (12/28/2024 2:49 PM CDT) Pathologist [facility] Magnesium 2.9(H) 1.4 - 2.5 mg/dL Blood 12/28/2024 2:49 PM CDT 12/28/2024 3:07 PM CDT Parth Dalton MD LAB BLOOD ORDERABLES Final Re sult Performing Organization Address [facility] de Phone Number [facility] Department [place] [address] * (ABNORMAL) Basic metabolic panel (12/28/2024 2:49 PM CDT) Pathologist [facility] Sodium 145 135 - 145 mmol/L Potassium, pl 4.1 3.3 - 4.9 mmol/L [facility] Comment:Hemolyzed; Potassium value may be falsely elevated by as much as 0.3-0.5 mmol/L. Suggest redraw and reanalysis. Chloride 112(H) 97 - 110 mmol/L [facility] CO2 21(L) 22 - 32 mmol/L [facility] Anion gap 12 2 - 15 mmol/L [facility] BUN 18 6 - 25 mg/dL [facility] Creatinine 1.07 0.80 - 1.30 mg/dL [facility] Glucose 92 70 - 199 mg/dL [facility] Comment: Interpretive Data Fasting glucose [...] 2022. Calcium 8.5 8.5 - 10.3 mg/dL [facility] Blood 12/28/2024 2:49 PM CDT 12/28/2024 3:07 PM CDT us Parth Dalton MD LAB BLOOD ORDERABLES Final Re sult [facility] Department [place] [address] * (ABNORMAL) POC Blood Gas and Chemistries, Arterial - (12/28/2024 2:38 PM CDT) Pathologist [facility] pH, Art POC 7.31(L) 7.35 - 7.45 pCO2, Art POC 45 35 - [address] [facility] pO2, Art POC 94 83 - [address] [facility] Na, POC 142 135 - 145 mmol/L [facility] K POC 3.8 3.3 - 4.9 mmol/L [facility] Comment: Interpretive Data Not all point of care methods assess for hemolysis. Confirm with instrument and retest K+ if not consistent with clinical signs and symptoms. Current Interpretive Data was last revised on 2023. Cl, POC 114(H) 97 - 110 mmol/L [facility] Ionized Ca, POC 4.81 4.50 - 5.10 mg/dL [facility] Glucose, POC 92 70 - 199 mg/dL [facility] Lactate POC 0.8 0.7 - 2.0 mmol/L [facility] SO2 (felipe) arterial 98(H) 90 - 95 % [facility] Base excess, POC -3.5 mmol/L [facility] HCO3, Art POC 23 20 - 30 mmol/L [facility] Hct, POC 29.0(L) 41.4 - 51.6 % [facility] Total Hb, POC 9.7(L) 13.8 - 17.2 g/dL [facility] Blood 12/28/2024 2:38 PM CDT 12/28/2024 2:38 PM CDT Parth Dalton MD LAB POCT ORDERABLES - DEVICE Final Result [facility] Department [place] [address] * POCT heparin/ACT CPB (12/28/2024 12:41 PM CDT) Heparin POC 0.0 units/mL ACT, CPB 116 112 - [address] [facility] Blood 12/28/2024 12:4 1 PM CDT 12/28/2024 12:41 PM CDT Parth Dalton MD LAB POCT ORDERABLES - DEVICE Final Result Performing Organization Address [facility] [place] [address] * (ABNORMAL) POCT prothrombin time (12/28/2024 12:37 PM CDT) PT, POC 21.1(H) 11.7 - 16.6 sec INR, POC 1.6(H) 0.9 - 1.[address] [facility] Blood 12/28/2024 12:3 7 PM CDT 12/28/2024 12:37 PM CDT Parth Dalton MD LAB POCT ORDERABLES - DEVICE Final Result Performing Organization Address [facility] [place] [address] * POCT Partial thromboplastin time (PTT) (12/28/2024 12:37 PM CDT) [facility] APTT, POC 33.4 32.5 - 46.1 sec Blood 12/28/2024 12:3 7 PM CDT 12/28/2024 12:37 PM CDT Parth Dalton MD LAB POCT ORDERABLES - DEVICE Final Result Performing Organization Address [facility] [place] [address] * (ABNORMAL) POCT hemoglobin, hematocrit and platelet count (12/28/2024 12:35 PM CDT) Hgb, POC 9.0(L) 13.0 - 17.5 g/dL Hematocrit POC 28.0(L) 38.9 - 50.3 % [facility] Platelet POC 76(L) 150 - 400 K/cumm [facility] Blood 12/28/2024 12:3 5 PM CDT 12/28/2024 12:35 PM CDT us Parth Dalton MD LAB POCT ORDERABLES - DEVICE Final Result [facility] Department [place] [address] * (ABNORMAL) POC Blood Gas and Chemistries, Arterial - (12/28/2024 12:34 PM CDT) pH, Art POC 7.35 7.35 - 7.45 pCO2, Art POC 39 35 - 45 mmHg [facility] pO2, Art POC 137(H) 83 - 108 mmHg [facility] Na, POC 143 135 - 145 mmol/L [facility] K POC 4.2 3.3 - 4.9 mmol/L [facility] Comment: Interpretive Data Not all point of care methods assess for hemolysis. Confirm with instrument and retest K+ if not consistent with clinical signs and symptoms. Current Interpretive Data was last revised on 2023. Cl, POC 112(H) 97 - 110 mmol/L [facility] Ionized Ca, POC 5.65(H) 4.50 - 5.10 mg/dL [facility] Glucose, POC 113 70 - 199 mg/dL [facility] Lactate POC 1.3 0.7 - 2.0 mmol/L [facility] SO2 (felipe) arterial 100(H) 90 - 95 % [facility] Base excess, POC -3.8 mmol/L [facility] HCO3, Art POC 22 20 - 30 mmol/L [facility] Hct, POC 29.0(L) 41.4 - 51.6 % [facility] Total Hb, POC 9.7(L) 13.8 - 17.2 g/dL [facility] Blood 12/28/2024 12:3 4 PM CDT 12/28/2024 12:34 PM CDT Parth Dalton MD LAB POCT ORDERABLES - DEVICE Final Result [facility] Department [place] [address] * (ABNORMAL) POC Blood Gas and Chemistries, Arterial - (12/28/2024 12:16 PM CDT) [facility] pH, Art POC 7.39 7.35 - 7.45 pCO2, Art POC 38 35 - 45 mmHg [facility] pO2, Art POC 318(H) 83 - 108 mmHg [facility] Na, POC 141 135 - 145 mmol/L [facility] K POC 4.9 3.3 - 4.9 mmol/L [facility] Comment: Interpretive Data Not all point of care methods assess for hemolysis. Confirm with instrument and retest K+ if not consistent with clinical signs and symptoms. Current Interpretive Data was last revised on 2023. Cl, POC 113(H) 97 - 110 mmol/L [facility] Ionized Ca, POC 4.33(L) 4.50 - 5.10 mg/dL [facility] Glucose, POC 116 70 - 199 mg/dL [facility] Lactate POC 1.3 0.7 - 2.0 mmol/L [facility] SO2 (felipe) arterial 100(H) 90 - 95 % [facility] Base excess, POC -1.7 mmol/L [facility] HCO3, Art POC 23 20 - 30 mmol/L [facility] Hct, POC 28.0(L) 41.4 - 51.6 % [facility] Total Hb, POC 9.4(L) 13.8 - 17.2 g/dL [facility] Blood 12/28/2024 12:1 6 PM CDT 12/28/2024 12:16 PM CDT us Parth Dalton MD LAB POCT ORDERABLES - DEVICE Final Result [facility] Department [place] [address] * (ABNORMAL) POCT heparin/ACT CPB (12/28/2024 11:52 AM CDT) Heparin POC <2.8 units/mL ACT, CPB 579(H) 112 - [address] [facility] Blood 12/28/2024 11:5 2 AM CDT 12/28/2024 11:52 AM CDT us Parth Dalton MD LAB POCT ORDERABLES - DEVICE Final Result [facility] Department [place] [address] * (ABNORMAL) POC Blood Gas and Chemistries, Arterial - (12/28/2024 11:44 AM CDT) Pathologist [facility] pH, Art POC 7.41 7.35 - 7.45 pCO2, Art POC 37 35 - [address] [facility] pO2, Art POC 296(H) 83 - [address] [facility] Na, POC 139 135 - 145 mmol/L [facility] K POC 4.9 3.3 - 4.9 mmol/L [facility] Comment: Interpretive Data Not all point of care methods assess for hemolysis. Confirm with instrument and retest K+ if not consistent with clinical signs and symptoms. Current Interpretive Data was last revised on 2023. Cl, POC 113(H) 97 - 110 mmol/L [facility] Ionized Ca, POC 4.34(L) 4.50 - 5.10 mg/dL [facility] Glucose, POC 115 70 - 199 mg/dL [facility] Lactate POC 1.0 0.7 - 2.0 mmol/L [facility] SO2 (felipe) arterial 100(H) 90 - 95 % [facility] Base excess, POC -0.9 mmol/L [facility] HCO3, Art POC 24 20 - 30 mmol/L [facility] Hct, POC 30.0(L) 41.4 - 51.6 % [facility] Total Hb, POC 10.0(L) 13.8 - 17.2 g/dL [facility] Blood 12/28/2024 11:4 4 AM CDT 12/28/2024 11:44 AM CDT Parth Dalton MD LAB POCT ORDERABLES - DEVICE Final Result Performing Organization Address City/[facility]/ZIP Co de Phone Number [facility] [place] [place] [address] * (ABNORMAL) POCT heparin/ACT CPB (12/28/2024 11:25 AM CDT) Pathologist [facility] Heparin POC <2.8 units/mL ACT, CPB 599(H) 112 - [address] [facility] Blood 12/28/2024 11:2 5 AM CDT 12/28/2024 11:25 AM CDT Parth Dalton MD LAB POCT ORDERABLES - DEVICE Final Result Performing Organization Address [facility] de Phone Number [facility] [place] [place] [address] * (ABNORMAL) POC Blood Gas and Chemistries, Arterial - (12/28/2024 11:18 AM CDT) Pathologist [facility] pH, Art POC 7.41 7.35 - 7.45 pCO2, Art POC 38 35 - [address] [facility] pO2, Art POC 285(H) 83 - [address] [facility] Na, POC 142 135 - 145 mmol/L [facility] K POC 5.0(H) 3.3 - 4.9 mmol/L [facility] Comment: Interpretive Data Not all point of care methods assess for hemolysis. Confirm with instrument and retest K+ if not consistent with clinical signs and symptoms. Current Interpretive Data was last revised on 2023. Cl, POC 112(H) 97 - 110 mmol/L [facility] Ionized Ca, POC 4.31(L) 4.50 - 5.10 mg/dL [facility] Glucose, POC 117 70 - 199 mg/dL [facility] Lactate POC 1.0 0.7 - 2.0 mmol/L [facility] SO2 (felipe) arterial 100(H) 90 - 95 % [facility] Base excess, POC -0.4 mmol/L [facility] HCO3, Art POC 24 20 - 30 mmol/L [facility] Hct, POC 30.0(L) 41.4 - 51.6 % [facility] Total Hb, POC 9.9(L) 13.8 - 17.2 g/dL [facility] Blood 12/28/2024 11:1 8 AM CDT 12/28/2024 11:18 AM CDT Parth Dalton MD LAB POCT ORDERABLES - DEVICE Final Result Performing Organization Address [facility]/ZIP Co de Phone Number [facility] Department of [place] [address] * (ABNORMAL) POCT heparin/ACT CPB (12/28/2024 10:54 AM CDT) Heparin POC <2.8 units/mL ACT, CPB 638(H) 112 - [address] [facility] Blood 12/28/2024 10:5 4 AM CDT 12/28/2024 10:54 AM CDT Parth Dalton MD LAB POCT ORDERABLES - DEVICE Final Result Performing Organization Address [facility] Co de Phone Number [facility] [place] [address] * (ABNORMAL) POC Blood Gas and Chemistries, Arterial - (12/28/2024 10:47 AM CDT) pH, Art POC 7.37 7.35 - 7.45 pCO2, Art POC 41 35 - [address] [facility] pO2, Art POC 397(H) 83 - [address] [facility] Na, POC 142 135 - 145 mmol/L [facility] K POC 4.9 3.3 - 4.9 mmol/L [facility] Comment: Interpretive Data Not all point of care methods assess for hemolysis. Confirm with instrument and retest K+ if not consistent with clinical signs and symptoms. Current Interpretive Data was last revised on 2023. Cl, POC 111(H) 97 - 110 mmol/L [facility] Ionized Ca, POC 4.47(L) 4.50 - 5.10 mg/dL [facility] Glucose, POC 108 70 - 199 mg/dL [facility] Lactate POC 1.0 0.7 - 2.0 mmol/L [facility] SO2 (felipe) arterial 100(H) 90 - 95 % [facility] Base excess, POC -1.5 mmol/L [facility] HCO3, Art POC 24 20 - 30 mmol/L [facility] Hct, POC 32.0(L) 41.4 - 51.6 % [facility] Total Hb, POC 10.5(L) 13.8 - 17.2 g/dL [facility] Blood 12/28/2024 10:4 7 AM CDT 12/28/2024 10:47 AM CDT Parth Dalton MD LAB POCT ORDERABLES - DEVICE Final Result Performing Organization Address City/[facility]/ZIP Co de Phone Number [facility] [place] [address] * (ABNORMAL) POCT heparin/ACT CPB (12/28/2024 10:27 AM CDT) Heparin POC >4.7 units/mL ACT, CPB 633(H) 112 - [address] [facility] Blood 12/28/2024 10:2 7 AM CDT 12/28/2024 10:27 AM CDT Parth Dalton MD LAB POCT ORDERABLES - DEVICE Final Result [facility] [place] [address] * (ABNORMAL) POC Blood Gas and Chemistries, Arterial - (12/28/2024 10:20 AM CDT) pH, Art POC 7.34(L) 7.35 - 7.45 pCO2, Art POC 45 35 - [address] [facility] pO2, Art POC 333(H) 83 - [address] [facility] Na, POC 140 135 - 145 mmol/L [facility] K POC 4.1 3.3 - 4.9 mmol/L [facility] Comment: Interpretive Data Not all point of care methods assess for hemolysis. Confirm with instrument and retest K+ if not consistent with clinical signs and symptoms. Current Interpretive Data was last revised on 2023. Ionized Ca, POC 4.34(L) 4.50 - 5.10 mg/dL [facility] Glucose, POC 103 70 - 199 mg/dL [facility] Lactate POC 0.8 0.7 - 2.0 mmol/L [facility] SO2 (felipe) arterial 100(H) 90 - 95 % [facility] Base excess, POC -1.6 mmol/L [facility] HCO3, Art POC 24 20 - 30 mmol/L [facility] Hct, POC 33.0(L) 41.4 - 51.6 % [facility] Total Hb, POC 10.9(L) 13.8 - 17.2 g/dL [facility] Blood 12/28/2024 10:2 0 AM CDT 12/28/2024 10:20 AM CDT Parth Dalton MD LAB POCT ORDERABLES - DEVICE Final Result [facility] Department [place] [address] * (ABNORMAL) POCT heparin/ACT CPB (12/28/2024 10:02 AM CDT) Heparin POC >4.7 units/mL ACT, CPB 524(H) 112 - [address] [facility] Blood 12/28/2024 10:0 2 AM CDT 12/28/2024 10:02 AM CDT Parth Dalton MD LAB POCT ORDERABLES - DEVICE Final Result Performing Organization Address City/[facility]/ZIP Co de Phone Number [facility] Department [place] [address] * (ABNORMAL) POC Blood Gas and Chemistries, Arterial - (12/28/2024 9:56 AM CDT) pH, Art POC 7.32(L) 7.35 - 7.45 pCO2, Art POC 50(H) 35 - 45 mmHg [facility] pO2, Art POC 178(H) 83 - 108 mmHg [facility] Na, POC 141 135 - 145 mmol/L [facility] K POC 4.2 3.3 - 4.9 mmol/L [facility] Comment: Interpretive Data Not all point of care methods assess for hemolysis. Confirm with instrument and retest K+ if not consistent with clinical signs and symptoms. Current Interpretive Data was last revised on 2023. Cl, POC 111(H) 97 - 110 mmol/L [facility] Ionized Ca, POC 4.93 4.50 - 5.10 mg/dL [facility] Glucose, POC 110 70 - 199 mg/dL [facility] Lactate POC 0.9 0.7 - 2.0 mmol/L [facility] SO2 (felipe) arterial 100(H) 90 - 95 % [facility] Base excess, POC -0.9 mmol/L [facility] HCO3, Art POC 26 20 - 30 mmol/L [facility] Hct, POC 37.0(L) 41.4 - 51.6 % [facility] Total Hb, POC 12.4(L) 13.8 - 17.2 g/dL [facility] Blood 12/28/2024 9:56 AM CDT 12/28/2024 9:56 AM CDT Parth Dalton MD LAB POCT ORDERABLES - DEVICE Final Result [facility] Department [place] [address] * POCT heparin dose response, CPB (12/28/2024 8:22 AM CDT) Baseline ACT POC 136 112 - 174 sec Heparin dose response slope POC 94 60 - [address] [facility] Projected Heparin Concentration POC <0.1 units/mL [facility] Blood 12/28/2024 8:22 AM CDT 12/28/2024 8:22 AM CDT Parth Dalton MD LAB POCT ORDERABLES - DEVICE Final Result [facility] Department [place] [address] * Central Venous Line (12/28/2024 8:17 AM [...] Art POC 41 35 - [address] [facility] pO2, Art POC 125(H) 83 - [address] [facility] Na, POC 142 135 - 145 mmol/L [facility] K POC 3.8 3.3 - 4.9 mmol/L [facility] Comment: Interpretive Data Not all point of care methods assess for hemolysis. Confirm with instrument and retest K+ if not consistent with clinical signs and symptoms. Current Interpretive Data was last revised on 2023. Cl, POC 109 97 - 110 mmol/L [facility] Ionized Ca, POC 4.98 4.50 - 5.10 mg/dL [facility] Glucose, POC 102 70 - 199 mg/dL [facility] Lactate POC 1.0 0.7 - 2.0 mmol/L [facility] SO2 (felipe) arterial 100(H) 90 - 95 % [facility] Base excess, POC -0.2 mmol/L [facility] HCO3, Art POC 25 20 - 30 mmol/L [facility] Hct, POC 36.0(L) 41.4 - 51.6 % [facility] Total Hb, POC 12.0(L) 13.8 - 17.2 g/dL [facility] Blood 12/28/2024 8:15 AM CDT 12/28/2024 8:15 AM CDT us Parth Dalton MD LAB POCT ORDERABLES - DEVICE Final Result Performing Organization Address City/[facility]/ZIP Co de Phone Number [facility] [place] [address] * YONY Add-On For OR (12/28/2024 7:51 AM CDT) BSA 2.09 m2 [facility] PROSOLV_CARDIORE PORT_CONS SCIMAGE Narrative [facility] PROSOLV_CARDIOREPORT_CONS SCIMAGE - 12/28/2024 7:51 AM CDT Procedure Auto Finalized by Rule: BW CV YONY DURING CASE OR Please see the Anesthesiologist's Procedure Note for the results. us Simon Roberts MD CV ECHO PROCEDURES Final Result Performing Organization Address [facility]/ZIP Co de Phone Number [facility] PROSOLV_CARDIOREPORT_CONS SCIMAGE * [place] AN PROCEDURE PLACEHOLDER (12/28/2024 7:30 AM CDT) [...] code: YONY placement and diagnostic exam, non-congenital (29584) Echocardiographic and doppler measurements: Ventricles: Left ventricle: [...] inferior: hypokinetic 16- Apical septal: hypokinetic 17- [place]: hypokinetic Valves: Aortic Valve: Annulus: normal Leaflet [...] ORDERABLES Final Result Performing Organization Address [facility] Co de Phone Number [facility] [place] [address] * (ABNORMAL) eGFR (12/27/2024 9:28 PM CDT) [...] ORDERABLES Final Result Performing Organization Address [facility] Co de Phone Number CYNTHIA MURPHY [facility] Department [place] [address] * (ABNORMAL) aPTT (12/27/2024 9:28 PM CDT) aPTT 100(H) 26 - 38 sec Comment: Interpretive Data Heparin therapeutic range: 66.0 - 100.0 seconds. Range based on correlation with therapeutic heparin activity range of 0.3 - 0.7 Units/mL. Current interpretive data was last revised on 2023. Blood 12/27/2024 9:28 PM CDT 12/27/2024 9:41 PM CDT Narrative [facility] - 12/27/2024 10:03 PM CDT STAT PTT [...] peripherally (not from CVC). us Tesha Barrera NET MOBILE DEVELOPER LAB BLOOD ORDERABLES Final Resul t Performing Organization Address City/[facility] Co de Phone Number [facility] [place] [address] * Antithrombin Activity (12/27/2024 9:28 PM CDT) Pathologist [facility] Antithrombin III 84 80 - 125 % Comment: Interpretive Data High concentrations of anti-Xa direct oral anticoagulants can cause Antithrombin activities to be falsely elevated. Current interpretive data was last reviewed 2023 Blood 12/27/2024 9:28 PM CDT 12/27/2024 9:46 PM CDT us Justin Lambert NET MOBILE DEVELOPER LAB BLOOD ORDERABLES F inal Result [facility] [place] [address] * (ABNORMAL) CBC without differential (12/27/2024 9:28 PM CDT) WBC 6.15 3.80 - 9.90 K/cumm Hgb 12.6(L) 13.0 - 17.5 g/dL [facility] Hct 37.9(L) 38.9 - 50.3 % [facility] Plt 151 150 - 400 K/cumm [facility] MPV 10.4 9.1 - 12.[address] [facility] RBC 3.69(L) 4.30 - 5.80 M/cumm [facility] MCV 102.7(H) 81.3 - 96.[address] [facility] MCH 34.1(H) 27.1 - 33.[address] [facility] MCHC 33.2 32.3 - 35.7 g/dL [facility] RDW CV 14.0 11.1 - 14.9 % [facility] RDW SD 53.0(H) 35.7 - 48.[address] [facility] NRBC abs 0.00 0.00 - 0.01 K/cumm [facility] Blood 12/27/2024 9:28 PM CDT 12/27/2024 9:46 PM CDT Francy Bernabe NET MOBILE DEVELOPER LAB BLOOD ORDERABLES Final Result Performing Organization Address City/[facility]/ZIP Co de Phone Number [facility] [place] [address] * Magnesium (12/27/2024 9:28 PM CDT) [facility] Magnesium 1.9 1.4 - 2.5 mg/dL Blood 12/27/2024 9:28 PM CDT 12/27/2024 9:46 PM CDT Francy Bernabe NET MOBILE DEVELOPER LAB BLOOD ORDERABLES Final Result Performing Organization Address City/[facility]/ZIP Co de Phone Number [facility] [place] [address] * Basic metabolic panel (12/27/2024 9:28 PM CDT) Pathologist [facility] Sodium 142 135 - 145 mmol/L Potassium, pl 4.3 3.3 - 4.9 mmol/L [facility] Chloride 106 97 - 110 mmol/L [facility] CO2 25 22 - 32 mmol/L [facility] Anion gap 11 2 - 15 mmol/L [facility] BUN 24 6 - 25 mg/dL [facility] Creatinine 1.28 0.80 - 1.30 mg/dL [facility] Glucose 136 70 - 199 mg/dL [facility] Comment: Interpretive Data Fasting glucose [...] 2022. Calcium 9.3 8.5 - 10.3 mg/dL [facility] Blood 12/27/2024 9:28 PM CDT 12/27/2024 9:46 PM CDT us Francy Bernabe NP LAB BLOOD ORDERABLES Final Result [facility] [place] [address] * Prepare RBC: 4 Units (12/27/2024 3:41 PM CDT) Product code [id number] [facility] Unit Number [id number] 7-L [facility] Product Blood Type APOS [facility] Dispense Status RETURNED [facility] Product code [id number] [facility] Unit Number [id number] 1-M [facility] Product Blood Type APOS [facility] Dispense Status RETURNED [facility] Product code [id number] [facility] Unit Number [id number] 4-C [facility] Product Blood Type APOS [facility] Dispense Status RETURNED [facility] Product code [id number] Unit Number [id number] 9-A [facility] Product Blood Type APOS [facility] Dispense Status RETURNED [facility] Blood 12/27/2024 3:41 PM CDT 12/27/2024 3:40 PM CDT Narrative [facility] - 12/28/2024 3:05 PM CDT Specify Procedure:->CABG Are special requirements needed? (All products are leukoreduced and CMV- safe)- >No Date required:-[id number] LRRBC # of [id number] Reasons:-Hold for procedure (specify procedure)} Lacey Ly NP BLOOD BANK PRODUCT ORDERAB LES Final Result [facility] [place] [address] * XR Chest Pa Lateral 2 Views [...] signed by: Jan Myers M.D. Justin Lambert NET MOBILE DEVELOPER IMG XR PROCEDURES Raquel l Result * US Carotids Duplex Bilateral (12/27/2024 10:03 AM CDT) Anatomical Region Laterality Modality Vascular Bilateral Ultrasound 12/27/2024 9:03 AM CDT Narrative 12/27/2024 1:25 PM CDT [facility] - Department of Vascular Surgery, Vascular Laboratory [address] [place] [address] Carotid Duplex Ultrasound Report Patient Name: MEGAN TITUS : 1950 (74y 10m) Study Date: 12/27/2024 9:03:35 AM Gender: M Tech: Location: [id number] Ref Provider: JUSTIN LAMBERT Quality: Adequate Order [...] LT VERT PSV 29 cm/sec FINDINGS: Performing Slitter Creaser Slotter Helper: Martine Canas RVT. Rt Common Carotid Artery: [...] Procedure Note Seth Sexton MD - 12/27/2024 [facility] - Department of Vascular Surgery,Vascular Laboratory [address] [place] [address] Carotid Duplex Ultrasound Report Patient Name: MEGAN TITUS : 1950 (74y 10m) Study Date: 12/27/2024 9:03:35 AM Gender: M Tech: Location: [id number] Ref Provider: JUSTIN LAMBERT Quality: Adequate Order [...] LT VERT PSV 29 cm/sec FINDINGS: Performing Slitter Creaser Slotter Helper: Martine Canas RVT. Rt Common Carotid Artery: [...] above. Electronically Signed By: Seth Sexton MD [facility] 12/27/2024 12:34:30 PM CDT us Justin Lambert NP IMG US PROCEDURES Raquel l Result * US Vein Mapping Duplex Lower Extremity Bilateral (12/27/2024 10:02 AM CDT) Anatomical Region Laterality Modality Vascular Bilateral Ultrasound 12/27/2024 9:15 AM CDT Narrative 12/27/2024 1:35 PM CDT [employer] [facility] - Department of Vascular Surgery, Vascular Laboratory [address] [place] [address] Lower Extremity Vein Mapping Report Patient Name: MEGAN TITUS : 1950 (74y 10m) Study Date: 12/27/2024 9:15:50 AM Gender: M Slitter Creaser Slotter Helper: ALEIDA Location: [id number] Ref Provider: JUSTIN LAMBERT Quality: Adequate Order [...] Small Saphenous Distal 0.20 cm FINDINGS: Performing Slitter Creaser Slotter Helper: Martine Canas RVT. Bilateral: The common femoral, [...] Procedure Note Seth Sexton MD - 12/27/2024 [facility] - Department of Vascular Surgery,Vascular Laboratory [address] [place] [address] Lower Extremity Vein Mapping Report Patient Name: MEGAN TITUS : 1950 (74y 10m) Study Date: 12/27/2024 9:15:50 AM Gender: M Slitter Creaser Slotter Helper: ALEIDA Location: [id number] Ref Provider: JUSTIN LAMBERT Quality: Adequate Order [...] Small Saphenous Distal 0.20 cm FINDINGS: Performing Slitter Creaser Slotter Helper: Martine Canas RVT. Bilateral: The common femoral, [...] above. Electronically Signed By: Seth Sexton MD [facility] 12/27/2024 1:35:27 PM CDT us Justin Lambert NET MOBILE DEVELOPER IMG US PROCEDURES Raquel l Result * TRANSTHORACIC ECHO (TTE) COMPLETE W DOPPLER/CF W CONTRAST (12/27/2024 8:47 AM CDT) EF Mod BP 38 % CONS SCIMAGE Anatomical Region Laterality Modality Ultrasound 12/27/2024 7:13 AM CDT Narrative 12/27/2024 10:50 AM CDT [facility] Cardiac [place] [address] Transthoracic Echocardiographic Report Patient Name: MEGAN TITUS : 1950 (74y 10m) Sex: M Study Date: 12/27/2024 07:13:57 AM Ht(Inch): 70 Wt(Lb): 195.11 BSA: 2.09 Slitter Creaser Slotter Helper: Santiago Montiel RDCS Location: [id number] Order Provider: JUSTIN LAMBERT Heart Rate: 95 [...] LA Length 4C 7.12 cm AI Decel [place] 2.38 m/s2 LA Length 2C 7.04 cm [...] Procedure Note Gerardo Dickson MD - 12/27/2024 [facility] Card[facility] [place] [address] Transthoracic Echocardiographic Report Patient Name: MEGAN TITUS : 1950 (74y 10m) Sex: M Study Date: 12/27/2024 07:13:57 AM Ht(Inch): 70 Wt(Lb): 195.11 BSA: 2.09 Slitter Creaser Slotter Helper: Santiago Montiel RDCS Location: [id number] Order Provider:JUSTIN LAMBERT Heart Rate: 95 BMI: [...] [ -25.0 - -18.0 ] AI Decel [id number] sec LA Length 4C 7.12 cm AI Decel [place]2.38 m/s2 LA Length 2C 7.04 cm AI XGA059.29 msec LA Volume BP 112.17 ml MV E Peak Vel0.9 m/s [ 0.6 - 1.3 ] LA Volume Index 53.65 ml/m2 [ 16.00 - 34.00 ] MV Decel Etqb224.92 msec [ 104.00 - 258.00 ] RV [...] Asc Ao Diam 2D 3.53 cm MR NUW027.7 cm Asc Ao Index 1.69 cm/m2 MR [...] LAB BLOOD ORDERABLES Final Resul t [facility] Department of Laboratories [place], [place] [id number] * (ABNORMAL) aPTT (12/27/2024 12:24 AM CDT) [...] ORDERABLES Final Resul t Performing Organization Address City/[facility]/ZIP Co de Phone Number [facility] [place] [address] * Hepatitis C antibody Blood (02/17/2023 3:47 [...] - GENERAL ORDERABLES Final Result [facility] [address] [address] [place] [address] * Stool DNA - Cologuard (10/20/2022 11:30 AM CDT) Stool DNA - Cologuard Negative Negative [employer] (CLIA #:[id number]) Comment: NEGATIVE TEST RESULT. A negative Cologuard [...] Sneed et al, N Engl J Med 2014;370(14):6616-5746) The normal value (reference range) for this assay is negative. COLOGUARD RE-SCREENING RECOMMENDATION: Periodic colorectal cancer screening is an important part of preventive healthcare for asymptomatic individuals at average risk for colorectal cancer. Following a negative Cologuard result, the [place] [employer] and U.S. Multi-Society Task Force screening guidelines recommend a Cologuard re-screening interval of 3 years. References: [place] [employer] Guideline for Colorectal Cancer Screening: https://www.cancer.org/cancer/vopez-arawdq-hoojzw/rmqyhkonf-swepjvqfa-kiexlrf/ac s-rec ommendations.html.; Brian DAY, Tracie PEACE, Yan WoodK, Colorectal Cancer Screening: Recommendations for Physicians and Patients from the U.S. Multi-Society Task Force on Colorectal Cancer Screening , Am J Gastroenterology 2017; 112:2143-1082. TEST DESCRIPTION: Composite algorithmic analysis of stool [...] Sneed et al, N Engl J Med 2014;370(14):6794-5426.) Cologuard may produce a false negative or false positive result (no colorectal cancer or precancerous polyp present at colonoscopy follow up). A negative Cologuard test result does not guarantee the absence of CRC or advanced adenoma (pre-cancer). The current Cologuard screening interval is every 3 years. ([place] [employer] and U.S. Multi-Society Task Force). Cologuard performance data in a 10,000 patient pivotal study using colonoscopy as the reference method can be accessed at the following location: www.[employer]/results. Additional description of the Cologuard test process, warnings and precautions can be found at www.cologuard.com. Stool 10/20/2022 11:3 0 AM CDT 10/21/2022 9:26 PM CDT Yaya Elizondo MD LAB BODY FLUIDS AND STOOLS OR DERABLES Final Result [facility] (CLIA #:[id number]) [place] [address] 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 ADVANCE DIRECTIVE 04/14/2022 6:41 AM [facility] DNR * Full Code (Latest Code Status [...] Agents on File Name Relationship Healthcare Agent Relationspr p Communication Norah Titus Sister Health Care Agent Care Teams Assistant Housekeeping Manager Relationship Specialty Start Date End Date Jeferson Elena MD [address] [facility] [address] [place] [address] PCP - General Family Medicine 02/17/23 Mykel Mccauley DO [address] [facility], [address] [place] [address] Medical Oncologist/Hematologis t Hematology and Oncology 08/28/21 Micheal Cabral MD [address] [facility] [address] [place] [address] Consulting Physician General Surgery 08/11/22 Artie Henderson MD [address] [facility] [address] [place] [address] Referring Physician Cardiology 02/17/23 Ana M Renteria MD 2 [facility] [address] [place] [address] Referring Physician Cardiology 11/21/23 [place] [address] [address] Consulting Physician Endocrinology Diabetes & Metabolism 11/21/23 [place] [address] [address] Nurse Practitioner Endocrinology Diabetes & Metabolism 11/21/23 Parth Dalton MD [id number] [place] [address] Surgeon Cardiothoracic Surgery 12/07/24
--- OUTSIDE RECORDS SUMMARY | 2025-03-29 17:02 | XMS_ITS ---
Author Organization [facility] Address [address] [place] [address] Care Team Providers Care Calender Let Off Helper Name Role Phone Mykel Mccauley Unavailable Micheal Cabral MD Unavailable [phone] Jeferson Elena MD Primary Care Provider [...] Assessment & Plan (01/19/2025 8:49 AM CDT): BUSINESS LIAISON OFFICER saw patient on 01/09 at bedside 01/10 [...] revealed mild tracheomalacia - 01/17 transition to [facility] - ENT to sign off - [...] CI 2.5 w chest closed -ASA/statin/zetia/spirolactone daily -DIVER TENDER - 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 Will refer him back to Orthopedics to discuss steroid injections for both of his knees Hand arthritis 03/19/2024 Assessment & Plan (03/19/2024 11:06 AM FRUIT GRADER OPERATOR): Will obtain new x-rays today. Referral to ortho hand in [place]. I told him alternatively there would be Dr. Du at [facility]. Encounter for Medicare annual wellness exam [...] daily Assessment & Plan (07/13/2024 10:40 AM FRUIT GRADER OPERATOR): Chronic problem. Currently taking prednisone 10mg [...] alert bracelet or necklace stating you have [place]'s disease and that you take steroids. In [...] alert bracelet or necklace stating you have [place]'s disease and that you take steroids. In case of any extreme weakness, abdominal pain, diarrhea or dizziness, it is recommended for you to call an ambulance and proceed to the nearest emergency room. Assessment & Plan (07/05/2023 2:53 PM FRUIT GRADER OPERATOR): Chronic problem. Currently taking prednisone 5mg [...] room. Assessment & Plan (05/19/2023 12:49 PM FRUIT GRADER OPERATOR): Patient continuing his Prednisone and set to follow up with Endo in June. Assessment & Plan (11/18/2022 3:01 PM CDT): Chronic problem. Discussed tapering prednisone dose from 15mg total/day down to 5mg daily. Reserving 10-15mg for sick days. Will call if any difficulties with tapering. Reviewed red flags. Will check TSH, T3, T4 today. Verified that he uses [facility]. Aware to check results/results letter in [employer]. Will contact by phone if needed. It [...] alert bracelet or necklace stating you have [place]'s disease and that you take steroids. In [...] 07/04/2022 Assessment & Plan (07/05/2022 7:58 PM FRUIT GRADER OPERATOR): On 12/2021 started high dose steroid [...] tapering. Assessment & Plan (07/04/2022 4:17 PM FRUIT GRADER OPERATOR): On 12/2021 started high dose steroid [...] Cardiology Assessment & Plan (05/19/2023 12:42 PM FRUIT GRADER OPERATOR): Patient continues to follow with Cardiology. [...] changes. Assessment & Plan (07/05/2022 8:13 PM FRUIT GRADER OPERATOR): TTE 03/2022 with LV dilation with [...] 09/09/2022) Assessment & Plan (07/04/2022 4:23 PM FRUIT GRADER OPERATOR): TTE 03/2022 with LV dilation with [...] cost Assessment & Plan (07/03/2022 5:05 PM FRUIT GRADER OPERATOR): TTE 03/2022 with LV dilation with [...] cost Assessment & Plan (04/05/2022 4:32 PM FRUIT GRADER OPERATOR): Heart Failure with Reduced Ejection Fraction: [...] currently Assessment & Plan (04/04/2022 3:23 PM FRUIT GRADER OPERATOR): Heart Failure with Reduced Ejection Fraction: EF 25% (TTE 03/2022), profile A, NYHA II, - Diuretic: None currently - Beta Jihan: Metoprolol tartrate 37.5 mg BID, will consolidate to XL prior to D/C - BRENTON/ARB/ARNI: On Entresto at home, will resume as tolerated - Device: No device currently Failure to thrive in adult 03/25/2022 Assessment & Plan (04/05/2022 4:31 PM FRUIT GRADER OPERATOR): - Patient presenting with decreased PO intake, noncompliance medications, reported wt loss - RD consult, currently on TF via DHT - Swallow evaluation to remove DHT and begin oral nutrition Assessment & Plan (04/04/2022 3:20 PM FRUIT GRADER OPERATOR): - Patient presenting with decreased PO intake, noncompliance medications, reported wt loss - RD consult, currently on TF via DHT Falls 03/25/2022 Assessment & Plan (04/05/2022 4:31 PM FRUIT GRADER OPERATOR): - Patient lives alone with reportedly intermittent falls at home; last prior to admission without reported head trauma - Head CT unremarkable - Fall precautions, empiric coverage for Wernicke per above Assessment & Plan (04/04/2022 3:20 PM FRUIT GRADER OPERATOR): - Patient lives alone with reportedly intermittent falls at home; last prior to admission without reported head trauma - Head CT unremarkable - Fall precautions, empiric coverage for Wernicke per above - PT/OT High risk medication use 03/25/2022 Atrial fibrillation 12/01/2021 Overview (12/01/2021): Added automatically from request for surgery [id number] Assessment & Plan (01/19/2025 8:45 AM CDT): [...] 01/19 Assessment & Plan (07/05/2022 8:09 PM FRUIT GRADER OPERATOR): EKG on admission w/ AFL - eliquis - metop Assessment & Plan (07/04/2022 4:24 PM FRUIT GRADER OPERATOR): EKG on admission w/ AFL - eliquis - metop Assessment & Plan (07/02/2022 9:24 PM FRUIT GRADER OPERATOR): EKG on admission w/ AFL - eliquis - metop Assessment & Plan (04/05/2022 4:30 PM FRUIT GRADER OPERATOR): Presenting with Afib with HR currently at goal < 110, episode of hypotension 03/29 with RVR requiring ICU transfer - On metoprolol tartrate 37.5 mg BID, rate controlled - Continue telemetry for now (currently rate controlled) - Theraputic lovenox Assessment & Plan (04/04/2022 3:18 PM FRUIT GRADER OPERATOR): Presenting with Afib with HR currently at goal < 110, episode of hypotension 03/29 with RVR requiring ICU transfer - On metoprolol tartrate 37.5 mg BID, rate controlled - Continue telemetry for now - Theraputic lovenox Chronic HFrEF (heart failure with reduced ejection fraction) 10/22/2021 Assessment & Plan (03/25/2025 3:27 PM FRUIT GRADER OPERATOR): Continue ASA, Eliquis, Statin and Zetia Continue [...] function Assessment & Plan (03/28/2022 2:53 PM FRUIT GRADER OPERATOR): - Recent TTE 2wks ago with [...] daily. Assessment & Plan (07/05/2022 8:06 PM FRUIT GRADER OPERATOR): Statin Assessment & Plan (07/04/2022 4:23 PM FRUIT GRADER OPERATOR): Statin Assessment & Plan (07/03/2022 5:08 PM FRUIT GRADER OPERATOR): Statin Assessment & Plan (04/05/2022 4:32 PM FRUIT GRADER OPERATOR): - Cont statin once able to tolerate PO Assessment & Plan (03/25/2022 11:54 PM FRUIT GRADER OPERATOR): - Cont statin Hypertension 08/28/2021 Assessment [...] KK Assessment & Plan (04/05/2022 4:32 PM FRUIT GRADER OPERATOR): - Submassive PE diagnosed in 07/2021 - CT PE negative here (in setting of apixaban noncompliance) - Lovenox Assessment & Plan (04/04/2022 3:21 PM FRUIT GRADER OPERATOR): - Submassive PE diagnosed in 07/2021 - CT PE negative here (in setting of apixaban noncompliance) - Lovenox Clear cell carcinoma of kidney, 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 Mccauley. Bee 2018. S/p ablation and radical nephrectomy. Completed 5 cycles of pembrolizumab -12/2021. Hx of immunotherapy neurotoxicity and prior treated with course of steroids and IVIG (12/2021, 03/2022) Assessment & Plan (07/04/2022 4:23 PM FRUIT GRADER OPERATOR): Follows with Dr. Mccauley. Bee 2018. S/p ablation and radical nephrectomy. Completed 5 cycles of pembrolizumab -12/2021. 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 Mccauley. Bee 2018. S/p ablation and radical nephrectomy. Completed 5 cycles of pembrolizumab 3-12/2021. 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 Mccauley. Dx 2018. S/p ablation and radical nephrectomy. Completed 5 cycles of pembrolizumab 3-12/2021. 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 - Continues on IVIG and solumedrol per oncology Assessment & Plan (04/04/2022 3:20 PM FRUIT GRADER OPERATOR): Follows with Dr. Mccauley. Dx 2018. S/p ablation and radical nephrectomy. Completed 5 cycles of pembrolizumab 3-12/2021. 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 - Continues on IVIG and solumedrol per oncology Chronic left shoulder pain 02/18/2016 Acute renal failure superimposed on chronic kidn ey disease Assessment & Plan (07/05/2022 8:12 PM FRUIT GRADER OPERATOR): Cr 1.8 (baseline 1) - euvolemic on exam without recent GI losses or poor PO intake - IVF were hold - Initially aldactone, entresto and lasix were hold. - Cr improve to 1.37. - Restarted entresto and lower dose of lasix (from 40 mg daily to 20 mg daily) Assessment & Plan (07/04/2022 4:25 PM FRUIT GRADER OPERATOR): Cr 1.8 (baseline 1) - euvolemic on exam without recent GI losses or poor PO intake - Cr improve to 1.47. - would not give fluids - Hold aldactone, entresto and lasix Assessment & Plan (07/03/2022 5:08 PM FRUIT GRADER OPERATOR): Cr 1.8 (baseline 1) - euvolemic on exam without recent GI losses or poor PO intake - improving without intervention - would not give fluids - Hold aldactone, entresto and lasix Assessment & Plan (04/05/2022 4:30 PM FRUIT GRADER OPERATOR): - Presenting with Cr 1.81 up from baseline ~1.3 in setting of decreased PO intake, now resolved with supportive care - Avoid nephrotoxins, renal-dose meds Assessment & Plan (04/04/2022 3:18 PM FRUIT GRADER OPERATOR): - Presenting with Cr 1.81 up from baseline ~1.3 in setting of decreased PO intake, now resolved with supportive care - Avoid nephrotoxins, renal-dose meds Drug reaction Neurotoxicity Assessment & Plan (07/05/2022 7:58 PM FRUIT GRADER OPERATOR): 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, high dose steroids, now on pred 10 daily - On the ED receive hydrocortisone 59 ng x 3 - Steroid as mention - should not need PJP ppx on this dose - start PPI ppx Assessment & Plan (07/04/2022 4:19 PM FRUIT GRADER OPERATOR): 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, high dose steroids, now on pred 10 daily - On the ED receive hydrocortisone 59 ng x 3 - Steroid as mention - should not need PJP ppx on this dose - start PPI ppx Assessment & Plan (07/03/2022 4:51 PM FRUIT GRADER OPERATOR): 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 Assessment & Plan (07/04/2022 4:23 PM FRUIT GRADER OPERATOR): SBP has been on the low [...] lasix Assessment & Plan (07/03/2022 5:03 PM FRUIT GRADER OPERATOR): SBP has been on the low [...] 12/26/2024 Assessment & Plan (07/05/2022 7:54 PM FRUIT GRADER OPERATOR): home metal #5 - does not use trach collar Assessment & Plan (07/04/2022 4:17 PM FRUIT GRADER OPERATOR): home metal #5 - does not use trach collar Assessment & Plan (07/02/2022 10:20 PM FRUIT GRADER OPERATOR): home metal #5 - does not use trach collar Shortness of breath 07/01/2022 10/14/19 23 Assessment & Plan (07/05/2022 8:13 PM FRUIT GRADER OPERATOR): PHx of HFrEF (EF 20%), PE [...] No wheezing on exam. Stress test at [facility] 2018 (media) indeterminate. May have had ischemic eval afterwards but records not available. Cardiac MRI 06/2022 w/ Dilated cardiomyopathy with markedly reduced right and left ventricular ejection fraction. No evidence of myocarditis Plan: - empiric coverage for PNM: CTX, azithro for 3 days - BCx NGTD - Resolve SOB Assessment & Plan (07/04/2022 4:19 PM FRUIT GRADER OPERATOR): PHx of HFrEF (EF 20%), PE [...] No wheezing on exam. Stress test at [facility] 2019 (media) indeterminate. May have [...] 09/09/2022) Assessment & Plan (07/03/2022 4:48 PM FRUIT GRADER OPERATOR): PHx of HFrEF (EF 20%), PE [...] No wheezing on exam. Stress test at [facility] 2018 (media) indeterminate. May have [...] (06/03/2022): Added automatically from request for surgery [id number] Severe malnutrition 03/26/2022 11/21/19 24 Assessment & Plan (04/05/2022 4:32 PM FRUIT GRADER OPERATOR): RD following, continue TF - BUSINESS LIAISON OFFICER to follow for continued swallow eval given risk of aspiration Assessment & Plan (04/04/2022 3:21 PM FRUIT GRADER OPERATOR): RD following, continue TF - BUSINESS LIAISON OFFICER to follow for continued swallow eval given risk of aspiration Hypercalcemia 03/25/2022 03/26/2022 Assessment & Plan (03/25/2022 11:54 PM FRUIT GRADER OPERATOR): - Presume secondary to dehydration - monitor s/p IVF SIRS (systemic inflammatory response syndrome) 03/25/2022 12/07/2024 Shortness of breath 03/09/2022 03/25/20 Assessment & Plan (03/25/2022 11:55 PM FRUIT GRADER OPERATOR): - Hypotension 12/14/2021 10/13/2022 Cor pulmonale, acute 08/20/2021 024 Postural dizziness with presyncope 08/08/2021 10/07/2021 Stage 3a chronic kidney disease 08/08/2021 10/07/2021 Tachycardia 08/08/2021 10/07/2021 Adenomatous polyp of colon 03/21/2018 0 10/13/2022 Right kidney mass 03/15/2018 10/07/2021 Impingement syndrome of left shoulder 03/22/2013 10/07/2021 Prediabetes 06/15/2011 10/07/2021
--- OUTSIDE RECORDS SUMMARY | 2025-03-29 17:03 | XMS_ITS | Encounter Summary ---
Author Organization [facility] Address [address] [place] [address] Phone Care Team Providers Care Manager Transportation Name Role Phone Mykel Mccauley DO Unavailable Yaya Elizondo MD Primary Care Provider Micheal Cabral MD Unavailable [phone] Yaya Elizondo MD Primary Care Provider Jeferson Elena MD Primary Care Provider Artie Henderson MD Unavailable Ana M Renteria MD Unavailable [phone] Shiva Barrientos MD Unavailable Aileen Griffin NP Unavailable Parth Dalton MD Unavailable Encounter Details Date Type Department Care Team (Late st Contact Info) Description 03/08/2022 Documentation [facility] Medicine [facility]8 [facility] [address] [place] [phone] Mykel Mccauley DO [address] [facility] [address] [place] [address] [phone] Social History Tobacco Use Types Packs/Day Years [...] often do you attend chur ch or roman catholic services? Never 12/23/2021 Do you belong to [...] in a nursing home (including now)? 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 No 03/09/2022 11:38 PM CAROT Cate Armstrong RN * Therapy Consults Question Answer Date of Assessment Author PT Evaluation Needed 2 03/09/2022 11:38 PM CAROT Cate Armstrong RN OT Evaluation Needed 2 03/09/2022 11:38 PM CDT Cate Armstrong RN WATER PLANT MAINTENANCE MECHANIC Evaluation Needed 2 03/09/2022 11:38 PM CAROT [...] CDT COVID19 03/09/2022 03/09/2022 03/23/2022 3:05 AM OCCUPATIONAL THERAPIST AIDE COVID: Recovered Comment:Added based on recent COVID infection. 03/23/2022 03/23/2022 06/21/2022 3:[address] COVID: Suspected 07/01/2022 07/01/2022 07/01/2022 5:41 PM OCCUPATIONAL THERAPIST AIDE COVID: Suspected 07/03/2022 07/03/2022 07/03/2022 1:37 PM OCCUPATIONAL THERAPIST AIDE COVID: Suspected 07/10/2024 07/10/2024 07/10/2024 2:32 PM OCCUPATIONAL THERAPIST AIDE Ring Surveillance: C. auris Comment:This flag is [...] documented as of this encounter Care Teams Manager Transportation Relationship Specialty Start Date End Date Yaya Elizondo MD [address] [facility], [address] [address] PCP - General Family Medicine 10/07/21 01/23/23 Yaya Elizondo MD [address] [facility] [address] [place] [address] PCP - General Family Medicine 01/24/23 02/16/23 Jeferson Elena MD [address] [address] PCP - General Family Medicine 02/17/23 Mykel Mccauley DO [address] [facility], [facility] [address] [place] [address] Medical Oncologist/Hematologis t Hematology and Oncology 08/28/21 Micheal Cabral MD [address] [facility] [address] [place] [address] Consulting Physician General Surgery 08/11/22 Artie Henderson MD [address] [place], [place] [id number] Referring Physician Cardiology 02/17/23 Ana M Renteria MD [address] [facility] [address] [place], [place] [id number] Referring Physician Cardiology 11/21/23 [place] [address] [facility] [address] [place] [address] Consulting Physician Endocrinology Diabetes & Metabolism 11/21/23 [place] [address] [facility] [address] [place] [address] Nurse Practitioner Endocrinology Diabetes & Metabolism 11/21/23 Parth Dalton MD [id number] [place] [address] Surgeon Cardiothoracic Surgery 12/07/24 documented as of this encounter
--- OUTSIDE RECORDS SUMMARY | 2025-04-06 18:00 | XMS_ITS | Clinical Summary ---
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 Operator Name Role Phone DIGNA ARIEL, ESTRELLA Unavailable Unava dinora STOKES RN, FRANKIE Unavailable Unavailabl e KARI PT, DIDI Unavailable Unavailable NAT RECORDS ASSISTANT, GAUDENCIO Unavailable Unavailabl e RADHA OT, ROLANDO Unavailable Unavailable JOANNE STEVEN, HATTIE Unavailable Unavailable Payers Payer Name Policy Type Policy Number Effective Date Expira tion Date MEDICARE[facility] [id number] Problems Condition Name Condition Details Condition Category Status Onset Date Resolution Date Last Treatment Date Treating Clinician Comments 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: 00 ATHSCL HEART DISEASE OF [place] CORONARY ARTERY W/O ANG PCTRS Active 02-07 00:00: 00 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 CHR KDNY Active 02-07 00:00: 00 CHRONIC SYSTOLIC (CONGESTIVE) HEART FAILURE Active 02-07 00:00: 00 TYPE 2 DIABETES MELLITUS W DIABETIC CHRONIC KIDNEY DISEASE Active 02-07 00:00: 00 CHRONIC KIDNEY DISEASE, STAGE 3 UNSPECIFIED Active 02-07 00:00: 00 ANEMIA IN CHRONIC KIDNEY DISEASE Active 02-07 00:00: 00 ORTHOSTATIC HYPOTENSION Active 02-07 00:00: 00 ENCOUNTER FOR ATTENTION TO TRACHEOSTOMY Active 02-07 00:00: 00 UNSPECIFIED ATRIAL FIBRILLATION Active 02-07 00:00: 00 UNSPECIFIED OSTEOARTHRIT IS, UNSPECIFIED SITE Active 02-07 00:00: 00 INSOMNIA, UNSPECIFIED Active 02-07 00:00: 00 DEPRESSION, UNSPECIFIED Active 02-07 00:00: 00 UNSPECIFIED ADRENOCORTIC AL INSUFFICIENC Y Active 02-07 00:00: 00 CARDIOMYOPAT HY, UNSPECIFIED Active 02-07 00:00: 00 GASTRO-ESOPH AGEAL REFLUX DISEASE WITHOUT ESOPHAGITIS Active 02-07 00:00: 00 HYPERLIPIDEM IA, UNSPECIFIED Active 02-07 00:00: 00 DYSPHAGIA, UNSPECIFIED Active 02-07 00:00: 00 PRESENCE OF AORTOCORONAR Y BYPASS GRAFT Active 12-31 00:00: 00 PERSONAL HISTORY OF PNEUMONIA (RECURRENT) Active 02-07 00:00: 00 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 Ordering Clinician Indication Dosage Frequency Signature (SIG) Comments Components atorvastati n 80 mg tablet 02-07 00:00: 00 Yes [id number] CHOLESTEROL 1 tablet DAILY 1 tablet DAILY (route: oral) Med Classific ation: Cardiovas cular Therapy Agents digoxin 125 mcg (0.125 mg) tablet 02-07 00:00: 00 02-21 23:59 :00 No [id number] HEART RHYTHM 1 tablet DAILY 1 tablet DAILY (route: oral) Med Classific ation: Cardiovas cular Therapy Agents escitalopra m 10 mg tablet 02-07 00:00: 00 Yes [id number] MOOD 1 tablet DAILY 1 tablet DAILY (route: oral) Med Classific ation: Central Nervous System Agents ezetimibe 10 mg tablet 02-07 00:00: 00 Yes [id number] CHOLESTEROL 1 tablet DAILY 1 tablet DAILY (route: oral) Med Classific ation: Cardiovas cular Therapy Agents metoprolol succinate ER 25 mg tablet,exte nded release 24 hr 02-07 00:00: 00 02-21 23:59 :00 No [id number] BLOOD PRESSURE 0.5 tablet DAILY 0.5 tablet DAILY (route: oral) Med Classific ation: Cardiovas cular Therapy Agents pantoprazol e 40 mg tablet,joão yed release 02-07 00:00: 00 02-21 23:59 :00 No [id number] STOMACH ACID 1 tablet DAILY 1 tablet DAILY (route: oral) Med Classific ation: Gastroint estinal Therapy Agents prednisone 5 mg tablet 02-07 00:00: 00 Yes [id number] ADRENAL INSUFFICIEN CY 1 tablet DAILY 1 tablet DAILY (route: oral) Med Classific ation: Endocrine spironolact one 25 mg tablet 02-07 00:00: 00 Yes [id number] FLUID RETENTION 0.5 tablet DAILY 0.5 tablet DAILY (route: oral) Med Classific ation: Cardiovas cular Therapy Agents tamsulosin 0.4 mg capsule 02-07 00:00: 00 02-21 23:59 :00 No [id number] URINARY HEALTH 1 capsule DAILY 1 capsule DAILY (route: oral) Med Classific ation: Genitouri nary Therapy acetaminoph en 325 mg tablet 2024-05 00:00: 00 Yes [id number] PAIN 2 tablet 2 TIMES DAILY 2 tablet 2 TIMES DAILY (route: oral) Med Classific ation: Analgesic , Anti-infl ammatory or Antipyret ic aspirin 81 mg tablet 2024-05 00:00: 00 Yes [id number] ANTICOAGULA NT 1 tablet DAILY 1 tablet DAILY (route: oral) Med Classific ation: Hematolog ical Agents ipratropium 0.5 mg-albutero l 3 mg (2.5 mg base)/3 mL nebulizatio n soln 2024-05 00:00: 00 Yes [id number] COPD 3 mL EVERY 6 HOURS 3 mL EVERY 6 HOURS (route: inhalation ) Med Classific ation: Respirato ry Therapy Agents Lanoxin 62.5 mcg (0.0625 mg) tablet 2024-05 00:00: 00 Yes [id number] CHF 1 tablet DAILY 1 tablet DAILY (route: oral) Med Classific ation: Cardiovas cular Therapy Agents Lasix 20 mg tablet 2024-05 00:00: 00 Yes [id number] CHF 1 tablet DAILY 1 tablet DAILY (route: oral) Med Classific ation: Cardiovas cular Therapy Agents Toprol XL 25 mg tablet,exte nded release 2024-05 00:00: 00 Yes [id number] BP 25 mg DAILY 25 mg DAILY (route: oral) Med Classific ation: Cardiovas cular Therapy Agents Vital Signs Vital Name Observation Time Observation Value Commen ts Temperature 2025-03-25 12:29:00.000 98 [degF] Temperature 2025-03-19 10:45:00.000 98 [degF] Temperature 2025-03-18 13:24:00.000 97.6 [degF] Temperature 2025-03-13 12:07:00.000 97.9 [degF] Temperature 2025-03-11 15:14:00.000 98 [degF] Temperature 2025-03-06 15:44:00.000 97.2 [degF] Temperature 2025-03-04 11:04:00.000 98 [degF] Temperature 2025-02-28 13:12:00.000 98.1 [degF] Temperature 2025-02-27 15:22:00.000 97.6 [degF] Temperature 2025-02-25 14:15:00.000 98.4 [degF] Temperature 2025-02-20 15:17:00.000 97.3 [degF] Temperature 2025-02-20 14:01:00.000 97.3 [degF] Temperature 2025-02-18 11:05:00.000 98.5 [degF] Temperature 2025-02-14 14:13:00.000 97.9 [degF] Temperature 2025-02-13 11:36:00.000 96.7 [degF] Temperature 2025-02-11 15:31:00.000 98.2 [degF] Temperature 2025-02-08 14:13:00.000 98.2 [degF] Temperature 2025-02-07 15:18:00.000 97.7 [degF] BMI (%) 2025-02-07 14:51:33.000 27 kg/m2 Height 2025-02-07 14:51:28.000 70 [in_us] Pulse 2025-03-25 12:29:00.000 76 /min Pulse 2025-03-19 10:45:00.000 60 /min Pulse 2025-03-18 13:24:00.000 94 /min Pulse 2025-03-13 12:07:00.000 86 /min Pulse 2025-03-11 15:14:00.000 87 /min Pulse 2025-03-06 15:44:00.000 92 /min Pulse 2025-03-04 11:04:00.000 80 /min Pulse 2025-02-28 13:12:00.000 100 /min Pulse 2025-02-27 15:22:00.000 100 /min Pulse 2025-02-25 14:15:00.000 74 /min Pulse 2025-02-20 15:19:00.000 94 /min Pulse 2025-02-20 14:01:00.000 94 /min Pulse 2025-02-18 11:05:00.000 60 /min Pulse 2025-02-14 14:13:00.000 94 /min Pulse 2025-02-13 11:36:00.000 82 /min Pulse 2025-02-11 15:31:00.000 92 /min Pulse 2025-02-08 14:14:00.000 100 /min Pulse 2025-02-07 15:18:00.000 104 /min O2 Saturation (%) 2025-03-25 12:34:00.000 97 % O2 Saturation (%) 2025-03-19 10:47:00.000 97 % O2 Saturation (%) 2025-03-18 13:30:00.000 97 % O2 Saturation (%) 2025-03-13 12:08:00.000 96 % O2 Saturation (%) 2025-03-11 15:21:00.000 95 % O2 Saturation (%) 2025-03-06 15:46:00.000 98 % O2 Saturation (%) 2025-03-04 11:04:00.000 98 % O2 Saturation (%) 2025-02-28 13:12:00.000 97 % O2 Saturation (%) 2025-02-27 15:25:00.000 96 % O2 Saturation (%) 2025-02-25 14:15:00.000 98 % O2 Saturation (%) 2025-02-20 15:17:00.000 94 % O2 Saturation (%) 2025-02-20 14:02:00.000 99 % O2 Saturation (%) 2025-02-18 11:05:00.000 96 % O2 Saturation (%) 2025-02-14 14:13:00.000 97 % O2 Saturation (%) 2025-02-13 11:36:00.000 99 % O2 Saturation (%) 2025-02-11 15:31:00.000 98 % O2 Saturation (%) 2025-02-08 14:13:00.000 96 % O2 Saturation (%) 2025-02-07 15:18:00.000 98 % Respirations 2025-03-25 12:29:00.000 18 /min Respirations 2025-03-19 10:45:00.000 18 /min Respirations 2025-03-18 13:24:00.000 18 /min Respirations 2025-03-13 12:07:00.000 20 /min Respirations 2025-03-11 15:14:00.000 18 /min Respirations 2025-03-06 15:44:00.000 18 /min Respirations 2025-03-04 11:04:00.000 18 /min Respirations 2025-02-28 13:12:00.000 18 /min Respirations 2025-02-27 15:22:00.000 18 /min Respirations 2025-02-25 14:15:00.000 20 /min Respirations 2025-02-20 15:17:00.000 20 /min Respirations 2025-02-20 14:01:00.000 18 /min Respirations 2025-02-18 11:05:00.000 26 /min Respirations 2025-02-14 14:13:00.000 18 /min Respirations 2025-02-13 11:36:00.000 18 /min Respirations 2025-02-11 15:31:00.000 20 /min Respirations 2025-02-08 14:13:00.000 19 /min Respirations 2025-02-07 15:18:00.000 20 /min Weight (lbs) 2025-03-25 12:33:00.000 187 [lb_av] Weight (lbs) 2025-03-18 13:29:00.000 184 [lb_av] Weight (lbs) 2025-03-11 15:21:00.000 184 [lb_av] Weight (lbs) 2025-03-06 15:46:00.000 184 [lb_av] Weight (lbs) 2025-03-04 11:17:00.000 184 [lb_av] Weight (lbs) 2025-02-07 14:51:33.000 195 [lb_av] Systolic Blood Pressure 2025-03-25 12:29:00.000 112 mm [Hg] Systolic Blood Pressure 2025-03-19 10:45:00.000 120 mm [Hg] Systolic Blood Pressure 2025-03-18 13:24:00.000 112 mm [Hg] Systolic Blood Pressure 2025-03-13 12:07:00.000 106 mm [Hg] Systolic Blood Pressure 2025-03-11 15:14:00.000 104 mm [Hg] Systolic Blood Pressure 2025-03-06 15:44:00.000 110 mm [Hg] Systolic Blood Pressure 2025-03-04 11:04:00.000 120 mm [Hg] Systolic Blood Pressure 2025-02-28 13:12:00.000 92 mm[ Hg] Systolic Blood Pressure 2025-02-27 15:22:00.000 114 mm [Hg] Systolic Blood Pressure 2025-02-25 14:15:00.000 120 mm [Hg] Systolic Blood Pressure 2025-02-20 15:17:00.000 98 mm[ Hg] Systolic Blood Pressure 2025-02-20 14:01:00.000 110 mm [Hg] Systolic Blood Pressure 2025-02-18 11:05:00.000 118 mm [Hg] Systolic Blood Pressure 2025-02-14 14:38:00.000 101 mm [Hg] Systolic Blood Pressure 2025-02-14 14:13:00.000 148 mm [Hg] Systolic Blood Pressure 2025-02-13 11:36:00.000 114 mm [Hg] Systolic Blood Pressure 2025-02-11 15:38:00.000 90 mm[ Hg] Systolic Blood Pressure 2025-02-11 15:38:00.000 122 mm [Hg] Systolic Blood Pressure 2025-02-11 15:31:00.000 130 mm [Hg] Systolic Blood Pressure 2025-02-08 14:29:00.000 105 mm [Hg] Systolic Blood Pressure 2025-02-08 14:13:00.000 139 mm [Hg] Systolic Blood Pressure 2025-02-07 15:18:00.000 120 mm [Hg] Diastolic Blood Pressure 2025-03-25 12:29:00.000 62 mm [Hg] Diastolic Blood Pressure 2025-03-19 10:45:00.000 80 mm [Hg] Diastolic Blood Pressure 2025-03-18 13:24:00.000 62 mm [Hg] Diastolic Blood Pressure 2025-03-13 12:07:00.000 60 mm [Hg] Diastolic Blood Pressure 2025-03-11 15:14:00.000 82 mm [Hg] Diastolic Blood Pressure 2025-03-06 15:44:00.000 65 mm [Hg] Diastolic Blood Pressure 2025-03-04 11:04:00.000 74 mm [Hg] Diastolic Blood Pressure 2025-02-28 13:12:00.000 58 mm [Hg] Diastolic Blood Pressure 2025-02-27 15:22:00.000 56 mm [Hg] Diastolic Blood Pressure 2025-02-25 14:15:00.000 72 mm [Hg] Diastolic Blood Pressure 2025-02-20 15:17:00.000 68 mm [Hg] Diastolic Blood Pressure 2025-02-20 14:01:00.000 70 mm [Hg] Diastolic Blood Pressure 2025-02-18 11:05:00.000 78 mm [Hg] Diastolic Blood Pressure 2025-02-14 14:38:00.000 52 mm [Hg] Diastolic Blood Pressure 2025-02-14 14:13:00.000 82 mm [Hg] Diastolic Blood Pressure 2025-02-13 11:36:00.000 62 mm [Hg] Diastolic Blood Pressure 2025-02-11 15:38:00.000 68 mm [Hg] Diastolic Blood Pressure 2025-02-11 15:38:00.000 76 mm [Hg] Diastolic Blood Pressure 2025-02-11 15:31:00.000 70 mm [Hg] Diastolic Blood Pressure 2025-02-08 14:29:00.000 76 mm [Hg] Diastolic Blood Pressure 2025-02-08 14:13:00.000 87 mm [Hg] Diastolic Blood Pressure 2025-02-07 15:18:00.000 80 mm [Hg] Plan of Treatment Planned Activity Planned Date Details Comments Future Scheduled Test SN 1WK9 PT 1WK1 OT EFFECTIVE 02/10/2025 1WK1 RESPIRATORY SYSTEM MANAGEMENT; RN TO ASSESS AND TEACH, QUILTING SUPERVISOR/CAB STATION ATTENDANT TO OBSERVE AND TEACH RELATED TO ALTERED RESPIRATORY STATUS TO MINIMIZE COMPLICATIONS AND REDUCE HOSPITALIZATION. [code = SN 1WK9 PT 1WK1 OT EFFECTIVE 02/10/2025K1 RESPIRATORY SYSTEM MANAGEMENT; RN TO ASSESS AND TEACH, QUILTING SUPERVISOR/CAB STATION ATTENDANT TO OBSERVE AND TEACH RELATED TO ALTERED RESPIRATORY STATUS TO MINIMIZE COMPLICATIONS AND REDUCE HOSPITALIZATION.] Future Scheduled Test TRACHEOSTO MY CARE MANAGEMENT; RN/QUILTING SUPERVISOR/CAB STATION ATTENDANT TO INSTRUCT PATIENT/CAREGIVER ON CARE AND MANAGEMENT OF TRACHEOSTOMY. RN/ QUILTING SUPERVISOR/CAB STATION ATTENDANT TO PROVIDE SKILLED TEACHING ON TRACH COLLAR SUCTIONING PRN WITH 14 FR SUCTION CATHETER PER PATIENT TRACH CARE WITH INNER CANNULA: REMOVE INNER CANNULA, CLEANSE WITH NORMAL SALINE AND OR STERILE WATER AND REINSERT NON-DISPOSABLE CANNULA SIZE OF INNER CANNULA 5 BROOKS [code = TRACHEOSTOMY CARE MANAGEMENT; RN/QUILTING SUPERVISOR/CAB STATION ATTENDANT TO INSTRUCT PATIENT/CAREGIVER ON CARE AND MANAGEMENT OF TRACHEOSTOMY. RN/ QUILTING SUPERVISOR/CAB STATION ATTENDANT TO PROVIDE SKILLED TEACHING ON TRACH COLLAR SUCTIONING PRN WITH 14 FR SUCTION CATHETER PER PATIENT TRACH CARE WITH INNER CANNULA: REMOVE INNER CANNULA, CLEANSE WITH NORMAL SALINE AND OR STERILE WATER AND REINSERT NON-DISPOSABLE CANNULA SIZE OF INNER CANNULA 5 BROOKS] Future Scheduled Test FALL REDUC TION MANAGEMENT; RN TO ASSESS AND OBSERVE, QUILTING SUPERVISOR/CAB STATION ATTENDANT TO OBSERVE FALL RISK FACTORS AND EDUCATE PATIENT/CAREGIVER ON STRATEGIES TO MINIMIZE THE RISK OF FALLING. [code = FALL REDUCTION MANAGEMENT; RN TO ASSESS AND OBSERVE, QUILTING SUPERVISOR/CAB STATION ATTENDANT TO OBSERVE FALL RISK FACTORS AND EDUCATE PATIENT/CAREGIVER ON STRATEGIES TO MINIMIZE THE RISK OF FALLING.] Future Scheduled Test ANEMIA MAN AGEMENT; RN TO ASSESS AND TEACH, CAB STATION ATTENDANT/QUILTING SUPERVISOR TO OBSERVE AND TEACH AND PROVIDE EDUCATION ON ANEMIA. [code = ANEMIA MANAGEMENT; RN TO ASSESS AND TEACH, CAB STATION ATTENDANT/QUILTING SUPERVISOR TO OBSERVE AND TEACH AND PROVIDE EDUCATION ON ANEMIA.] Future Scheduled Test RN TO OBSE RVE, ASSESS, EVALUATE, AND DEVELOP AN INDIVIDUALIZED PLAN OF CARE. AGENCY MAY ACCEPT ORDERS FROM CONSULTING PHYSICIANS RN TO OBSERVE AND ASSESS, QUILTING SUPERVISOR/CAB STATION ATTENDANT TO OBSERVE FOR RISK FOR FALLS AND INSTRUCT IN FALL PREVENTION, HOME SAFETY, MEDICATION MANAGEMENT, INFECTION PREVENTION, AND NUTRITION MANAGEMENT. RN/QUILTING SUPERVISOR/CAB STATION ATTENDANT NURSE MAY PERFORM O2 SATURATION LEVEL ON ADMISSION AND PRN FOR RN TO ASSESS/QUILTING SUPERVISOR TO OBSERVE PATIENT, WITH NOTIFICATION TO THE PHYSICIAN IF SATURATION IS 90% IN THE ABSENCE OF MORE SPECIFIC PARAMETERS FROM THE PHYSICIAN. AGENCY MAY PERFORM A RESUMPTION OF CARE VISIT FOLLOWING ANY HOSPITAL ADMISSION. RN/QUILTING SUPERVISOR/CAB STATION ATTENDANT TO MONITOR CO-MORBID CONDITIONS LISTED ON THE PLAN OF CARE AND ANY NEW CONDITIONS THAT PRESENT THEMSELVES DURING THIS EPISODE TO IDENTIFY CHANGES AND INTERVENE TO MINIMIZE COMPLICATIONS. [code = RN TO OBSERVE, ASSESS, EVALUATE, AND DEVELOP AN INDIVIDUALIZED PLAN OF CARE. AGENCY MAY ACCEPT ORDERS FROM CONSULTING PHYSICIANS RN TO OBSERVE AND ASSESS, QUILTING SUPERVISOR/CAB STATION ATTENDANT TO OBSERVE FOR RISK FOR FALLS AND INSTRUCT IN FALL PREVENTION, HOME SAFETY, MEDICATION MANAGEMENT, INFECTION PREVENTION, AND NUTRITION MANAGEMENT. RN/QUILTING SUPERVISOR/CAB STATION ATTENDANT NURSE MAY PERFORM O2 SATURATION LEVEL ON ADMISSION AND PRN FOR RN TO ASSESS/QUILTING SUPERVISOR TO OBSERVE PATIENT, WITH NOTIFICATION TO THE PHYSICIAN IF SATURATION IS 90% IN THE ABSENCE OF MORE SPECIFIC PARAMETERS FROM THE PHYSICIAN. AGENCY MAY PERFORM A RESUMPTION OF CARE VISIT FOLLOWING ANY HOSPITAL ADMISSION. RN/QUILTING SUPERVISOR/CAB STATION ATTENDANT TO MONITOR CO-MORBID CONDITIONS LISTED ON THE PLAN OF CARE AND ANY NEW CONDITIONS THAT PRESENT THEMSELVES DURING THIS EPISODE TO IDENTIFY CHANGES AND INTERVENE TO MINIMIZE COMPLICATIONS.] Future Scheduled Test PAIN MANAG EMENT; RN TO ASSESS AND TEACH, CAB STATION ATTENDANT/QUILTING SUPERVISOR TO OBSERVE AND TEACH AND PROVIDE EDUCATION ON PAIN MANAGEMENT TECHNIQUES. [code = PAIN MANAGEMENT; RN TO ASSESS AND TEACH, CAB STATION ATTENDANT/QUILTING SUPERVISOR TO OBSERVE AND TEACH AND PROVIDE EDUCATION ON PAIN MANAGEMENT TECHNIQUES.] Future Scheduled Test RISK FOR H OSPITALIZATION; RN TO ASSESS/TEACH, CAB STATION ATTENDANT/QUILTING SUPERVISOR TO OBSERVE/TEACH PATIENT/CAREGIVER ON RISK FOR HOSPITALIZATION/EMERGENCY ROOM VISITS, TEACH SIGNS AND SYMPTOMS THAT PUT PATIENT AT RISK, WHEN TO NOTIFY NURSE/PHYSICIAN OF COMPLICATIONS/DECLINE, AND WHEN TO CALL 911. [code = RISK FOR HOSPITALIZATION; RN TO ASSESS/TEACH, CAB STATION ATTENDANT/QUILTING SUPERVISOR TO OBSERVE/TEACH PATIENT/CAREGIVER ON RISK FOR HOSPITALIZATION/EMERGENCY ROOM VISITS, TEACH SIGNS AND SYMPTOMS THAT PUT PATIENT AT RISK, WHEN TO NOTIFY NURSE/PHYSICIAN OF COMPLICATIONS/DECLINE, AND WHEN TO CALL 911.] Future Scheduled Test CARDIOVASC ULAR SYSTEM; RN TO ASSESS/TEACH, QUILTING SUPERVISOR/CAB STATION ATTENDANT TO OBSERVE/TEACH RELATED TO ALTERED CARDIOVASCULAR STATUS TO MINIMIZE COMPLICATIONS AND REDUCE HOSPITALIZATION. [code = CARDIOVASCULAR SYSTEM; RN TO ASSESS/TEACH, QUILTING SUPERVISOR/CAB STATION ATTENDANT TO OBSERVE/TEACH RELATED TO ALTERED CARDIOVASCULAR STATUS TO MINIMIZE COMPLICATIONS AND REDUCE HOSPITALIZATION.] Future Scheduled Test HYPERTENSI ON MANAGEMENT; RN TO ASSESS AND TEACH, QUILTING SUPERVISOR/CAB STATION ATTENDANT TO OBSERVE AND TEACH WARNING SIGNS AND SYMPTOMS TO AVOID HOSPITALIZATION. [code = HYPERTENSION MANAGEMENT; RN TO ASSESS AND TEACH, QUILTING SUPERVISOR/CAB STATION ATTENDANT TO OBSERVE AND TEACH WARNING SIGNS AND SYMPTOMS TO AVOID HOSPITALIZATION.] Future Scheduled Test HEART FAIL URE MONITORING RN/CAB STATION ATTENDANT/QUILTING SUPERVISOR TO MONITOR PATIENT FOR SIGNS AND SYMPTOMS OF HEART FAILURE EXACERBATION, MONITOR FOR ADHERENCE WITH MEDICATION AND HEART FAILURE MANAGEMENT REGIMEN. [code = HEART FAILURE MONITORING RN/CAB STATION ATTENDANT/QUILTING SUPERVISOR TO MONITOR PATIENT FOR SIGNS AND SYMPTOMS OF HEART FAILURE EXACERBATION, MONITOR FOR ADHERENCE WITH MEDICATION AND HEART FAILURE MANAGEMENT REGIMEN.] Future Scheduled Test DIABETES M ONITORING RN/CAB STATION ATTENDANT/QUILTING SUPERVISOR TO MONITOR BLOOD SUGAR LOG FOR BLOOD SUGAR READINGS THAT ARE BEING CHECKED BY PATIENT, CAREGIVER NEEDED FOR SIGNS AND SYMPTOMS OF HYPER/HYPOGLYCEMIA. PATIENT THERAPEUTIC BLOOD SUGAR PARAMETERS ARE 70 - 300. REPORT BLOOD SUGARS OUT OF RANGE TO PHYSICIAN. NURSE MAY PERFORM FINGER STICK BLOOD GLUCOSE NEEDED FOR SIGNS AND SYMPTOMS OF HYPO AND HYPERGLYCEMIA. RN/CAB STATION ATTENDANT/QUILTING SUPERVISOR TO MONITOR ADHERENCE OF PATIENT/CAREGIVER PERFORMING DIABETIC FOOT CARE AND MAY PERFORM DIABETIC FOOT CARE PRN. RN/CAB STATION ATTENDANT/QUILTING SUPERVISOR TO MONITOR FOR ADHERENCE TO DIABETIC SELF-CARE AND MANAGEMENT INCLUDING MEDICATIONS. [code = DIABETES MONITORING RN/CAB STATION ATTENDANT/QUILTING SUPERVISOR TO MONITOR BLOOD SUGAR LOG FOR BLOOD SUGAR READINGS THAT ARE BEING CHECKED BY PATIENT, CAREGIVER NEEDED FOR SIGNS AND SYMPTOMS OF HYPER/HYPOGLYCEMIA. PATIENT THERAPEUTIC BLOOD SUGAR PARAMETERS ARE 70 - 300. REPORT BLOOD SUGARS OUT OF RANGE TO PHYSICIAN. NURSE MAY PERFORM FINGER STICK BLOOD GLUCOSE NEEDED FOR SIGNS AND SYMPTOMS OF HYPO AND HYPERGLYCEMIA. RN/CAB STATION ATTENDANT/QUILTING SUPERVISOR TO MONITOR ADHERENCE OF PATIENT/CAREGIVER PERFORMING DIABETIC FOOT CARE AND MAY PERFORM DIABETIC FOOT CARE PRN. RN/CAB STATION ATTENDANT/QUILTING SUPERVISOR TO MONITOR FOR ADHERENCE TO DIABETIC SELF-CARE AND MANAGEMENT INCLUDING MEDICATIONS.] Future Scheduled Test HYPOTENSIO N MANAGEMENT; RN TO ASSESS AND TEACH/ QUILTING SUPERVISOR /CAB STATION ATTENDANT TO OBSERVE AND TEACH WARNING SIGNS AND SYMPTOMS TO AVOID HOSPITALIZATION. [code = HYPOTENSION MANAGEMENT; RN TO ASSESS AND TEACH/ QUILTING SUPERVISOR /CAB STATION ATTENDANT TO OBSERVE AND TEACH WARNING SIGNS AND SYMPTOMS TO AVOID HOSPITALIZATION.] Future Scheduled Test ARRHYTHMIA MANAGEMENT; RN TO ASSESS AND TEACH, QUILTING SUPERVISOR/CAB STATION ATTENDANT TO OBSERVE AND TEACH WARNING SIGNS AND SYMPTOMS TO AVOID HOSPITALIZATION. [code = ARRHYTHMIA MANAGEMENT; RN TO ASSESS AND TEACH, QUILTING SUPERVISOR/CAB STATION ATTENDANT TO OBSERVE AND TEACH WARNING SIGNS AND SYMPTOMS TO AVOID HOSPITALIZATION.] Future Scheduled Test MEDICATION MANAGEMENT; RN/QUILTING SUPERVISOR/CAB STATION ATTENDANT TO REVIEW MEDICATIONS FOR INTERACTIONS, EFFECTIVENESS OF DRUG THERAPY, AND SIGNS/SYMPTOMS OF ADVERSE REACTIONS. MAY INSTRUCT AND REINFORCE MEDICATION TEACHING RELATED TO THE USE OF MEDICATIONS, DOSAGE, FREQUENCY, PURPOSE, SIDE EFFECTS, AND TO REPORT COMPLICATIONS. [code = MEDICATION MANAGEMENT; RN/QUILTING SUPERVISOR/CAB STATION ATTENDANT TO REVIEW MEDICATIONS FOR INTERACTIONS, EFFECTIVENESS OF DRUG THERAPY, AND SIGNS/SYMPTOMS OF ADVERSE REACTIONS. MAY INSTRUCT AND REINFORCE MEDICATION TEACHING RELATED TO THE USE OF MEDICATIONS, DOSAGE, FREQUENCY, PURPOSE, SIDE EFFECTS, AND TO REPORT COMPLICATIONS.] Future Scheduled Test PHYSICAL T HERAPY FOR EVALUATION FOR WEAKNESS, GAIT, STRENGTH, AND SAFETY [code = PHYSICAL THERAPY FOR EVALUATION FOR WEAKNESS, GAIT, STRENGTH, AND SAFETY] Future Scheduled Test OCCUPATION AL THERAPY FOR EVALUATION FOR ADL ASSIST AND AND SAFETY [code = OCCUPATIONAL THERAPY FOR EVALUATION FOR ADL ASSIST AND AND SAFETY] Future Scheduled Test PT TO EVAL UATE, OBSERVE / ASSESS, AND MONITOR, RECORDS ASSISTANT TO OBSERVE AND MONITOR, PROVIDE SKILLED THERAPEUTIC INTERVENTION, ACTIVITY, EDUCATION, AND TRAINING TO ADDRESS GEN. WEAKNESS, POOR OVERALL ACTIVITY TOLERANCE, AND FUNCTIONAL LIMITATIONS IMPACTING SAFETY AND INDEPENDENCE. BED MOBILITY (PT/RECORDS ASSISTANT) PT/RECORDS ASSISTANT TO PROVIDE GAIT TRAINING FOR IMPROVED MOBILITY AND /OR TO NORMALIZE GAIT PATTERN THERAPEUTIC EXERCISES AND ESTABLISHING A HOME EXERCISE PROGRAM (PT/RECORDS ASSISTANT) PT/RECORDS ASSISTANT TO PROVIDE STAIR TRAINING PT / RECORDS ASSISTANT TO MONITOR AND EDUCATE ON OXYGEN SATURATION DURING ADLS/IADLS, NOTIFY PHYSICIAN AND/OR THE RN CLINICAL RN CORONARY CARE UNIT FOR PHYSICIAN NOTIFICATION AND IF O2 SATS BELOW PHYSICIAN ORDERED PARAMETERS AFTER 10 MIN OF REST PT / RECORDS ASSISTANT TO OBSERVE FOR EARLY SIGNS AND SYMPTOMS OF DEPRESSION OR DEPRESSION GETTING WORSE AND TO EDUCATE ON HOW TO FIND HELP. PT / RECORDS ASSISTANT MAY EDUCATE ON PAIN MANAGEMENT CLINICALLY INDICATED, INCLUDING NON-PHARMACOLOGICAL PAIN REDUCTION TECHNIQUES PT / RECORDS ASSISTANT TO MONITOR FOR HYPO/HYPERGLYCEMIA AND CONDUCT ROUTINE FOOT INSPECTIONS. RECORD PATIENT REPORTED BLOOD SUGAR LEVELS AND NOTIFY PHYSICIAN AND/OR THE RN CLINICAL RN CORONARY CARE UNIT FOR PHYSICIAN NOTIFICATION IF BLOOD SUGAR LEVELS ARE OUTSIDE ORDERED PARAMETERS. TEACH PATIENT/CAREGIVER ON DAILY FOOT INSPECTIONS PT / RECORDS ASSISTANT TO INSTRUCT PATIENT/CAREGIVER ON RISK FOR HOSPITALIZATION/EMERGENCY ROOM VISITS, TEACH SIGNS AND SYMPTOMS THAT PUT PATIENT AT RISK, WHEN TO NOTIFY NURSE/PHYSICIAN OF COMPLICATIONS/DECLINE, AND WHEN TO CALL 911. PT/RECORDS ASSISTANT TO EDUCATE ON ARTHRITIS SELF-MANAGEMENT PT / RECORDS ASSISTANT TO EDUCATE ON HEART FAILURE SELF-MANAGEMENT PT / RECORDS ASSISTANT TO EDUCATE ON HYPERTENSION SELF-MANAGEMENT PT TO ASSESS / RECORDS ASSISTANT TO MONITOR CARDIO/RESPIRATORY SYSTEM; AND NOTIFY THE PHYSICIAN AND/OR THE RN CLINICAL RN CORONARY CARE UNIT FOR PHYSICIAN NOTIFICATION FOR EARLY SIGNS AND SYMPTOMS OF EXACERBATION OR DETERIORATION. PT / RECORDS ASSISTANT TO EDUCATE ON ATRIAL FIBRILLATION SELF-MANAGEMENT. PT / RECORDS ASSISTANT TO EDUCATE ON PNEUMONIA / ASPIRATION PNEUMONIA SELF-MANAGEMENT. PT/RECORDS ASSISTANT TO IDENTIFY FALL RISK FACTORS; EDUCATE THE PATIENT/CAREGIVER ON WAYS TO REDUCE FALL RISK FACTORS AND ESTABLISH HOME EXERCISE PROGRAM TO MINIMIZE FALL RISK. MAY TEACH THE PATIENT FLOOR RECOVERY WHEN CLINICALLY APPROPRIATE [code = PT TO EVALUATE, OBSERVE / ASSESS, AND MONITOR, RECORDS ASSISTANT TO OBSERVE AND MONITOR, PROVIDE SKILLED THERAPEUTIC INTERVENTION, ACTIVITY, EDUCATION, AND TRAINING TO ADDRESS GEN. WEAKNESS, POOR OVERALL ACTIVITY TOLERANCE, AND FUNCTIONAL LIMITATIONS IMPACTING SAFETY AND INDEPENDENCE. BED MOBILITY (PT/RECORDS ASSISTANT) PT/RECORDS ASSISTANT TO PROVIDE GAIT TRAINING FOR IMPROVED MOBILITY AND /OR TO NORMALIZE GAIT PATTERN THERAPEUTIC EXERCISES AND ESTABLISHING A HOME EXERCISE PROGRAM (PT/RECORDS ASSISTANT) PT/RECORDS ASSISTANT TO PROVIDE STAIR TRAINING PT / RECORDS ASSISTANT TO MONITOR AND EDUCATE ON OXYGEN SATURATION DURING ADLS/IADLS, NOTIFY PHYSICIAN AND/OR THE RN CLINICAL RN CORONARY CARE UNIT FOR PHYSICIAN NOTIFICATION AND IF O2 SATS BELOW PHYSICIAN ORDERED PARAMETERS AFTER 10 MIN OF REST PT / RECORDS ASSISTANT TO OBSERVE FOR EARLY SIGNS AND SYMPTOMS OF DEPRESSION OR DEPRESSION GETTING WORSE AND TO EDUCATE ON HOW TO FIND HELP. PT / RECORDS ASSISTANT MAY EDUCATE ON PAIN MANAGEMENT CLINICALLY INDICATED, INCLUDING NON-PHARMACOLOGICAL PAIN REDUCTION TECHNIQUES PT / RECORDS ASSISTANT TO MONITOR FOR HYPO/HYPERGLYCEMIA AND CONDUCT ROUTINE FOOT INSPECTIONS. RECORD PATIENT REPORTED BLOOD SUGAR LEVELS AND NOTIFY PHYSICIAN AND/OR THE RN CLINICAL RN CORONARY CARE UNIT FOR PHYSICIAN NOTIFICATION IF BLOOD SUGAR LEVELS ARE OUTSIDE ORDERED PARAMETERS. TEACH PATIENT/CAREGIVER ON DAILY FOOT INSPECTIONS PT / RECORDS ASSISTANT TO INSTRUCT PATIENT/CAREGIVER ON RISK FOR HOSPITALIZATION/EMERGENCY ROOM VISITS, TEACH SIGNS AND SYMPTOMS THAT PUT PATIENT AT RISK, WHEN TO NOTIFY NURSE/PHYSICIAN OF COMPLICATIONS/DECLINE, AND WHEN TO CALL 911. PT/RECORDS ASSISTANT TO EDUCATE ON ARTHRITIS SELF-MANAGEMENT PT / RECORDS ASSISTANT TO EDUCATE ON HEART FAILURE SELF-MANAGEMENT PT / RECORDS ASSISTANT TO EDUCATE ON HYPERTENSION SELF-MANAGEMENT PT TO ASSESS / RECORDS ASSISTANT TO MONITOR CARDIO/RESPIRATORY SYSTEM; AND NOTIFY THE PHYSICIAN AND/OR THE RN CLINICAL RN CORONARY CARE UNIT FOR PHYSICIAN NOTIFICATION FOR EARLY SIGNS AND SYMPTOMS OF EXACERBATION OR DETERIORATION. PT / RECORDS ASSISTANT TO EDUCATE ON ATRIAL FIBRILLATION SELF-MANAGEMENT. PT / RECORDS ASSISTANT TO EDUCATE ON PNEUMONIA / ASPIRATION PNEUMONIA SELF-MANAGEMENT. PT/RECORDS ASSISTANT TO IDENTIFY FALL RISK FACTORS; EDUCATE THE PATIENT/CAREGIVER ON WAYS TO REDUCE FALL RISK FACTORS AND ESTABLISH HOME EXERCISE PROGRAM TO MINIMIZE FALL RISK. MAY TEACH THE PATIENT FLOOR RECOVERY WHEN CLINICALLY APPROPRIATE] Future Scheduled Test AGENCY MAY PERFORM A RESUMPTION OF CARE VISIT FOLLOWING ANY HOSPITAL ADMISSION. OT TO EVALUATE, OBSERVE / ASSESS, AND MONITOR, RADIO AERIAL INSTALLER TO OBSERVE AND MONITOR, PROVIDE SKILLED THERAPEUTIC INTERVENTION, ACTIVITY, EDUCATION, AND TRAINING TO ADDRESS SAFETY AND INDEPENDENCE OF ADLS AND FUNCTIONAL TRANSFERS IN HOME ENVIRONMENT. ACTIVITIES OF DAILY LIVING (OT/MARIANNE) THERAPEUTIC EXERCISE (OT/RADIO AERIAL INSTALLER) ENERGY CONSERVATION/ACTIVITY DEMAND (OT/RADIO AERIAL INSTALLER) OT/RADIO AERIAL INSTALLER TO MONITOR AND EDUCATE ON OXYGEN SATURATION DURING ADLS/IADLS, NOTIFY PHYSICIAN AND/OR THE RN CLINICAL RN CORONARY CARE UNIT FOR PHYSICIAN NOTIFICATION AND IF O2 SATS BELOW 90% AFTER 10 MIN OF REST. OT / RADIO AERIAL INSTALLER TO IDENTIFY FALL RISK FACTORS; EDUCATE THE PATIENT/CAREGIVER ON WAYS TO REDUCE FALL RISK FACTORS AND ESTABLISH HOME EXERCISE PROGRAM TO MINIMIZE FALL RISK. MAY TEACH THE PATIENT FLOOR RECOVERY WHEN CLINICALLY APPROPRIATE. OT/RADIO AERIAL INSTALLER TO EDUCATE ON HYPERTENSION SELF-MANAGEMENT OT/MARIANNE TO EDUCATE ON ATRIAL FIBRILLATION SELF-MANAGEMENT. [code = AGENCY MAY PERFORM A RESUMPTION OF CARE VISIT FOLLOWING ANY HOSPITAL ADMISSION. OT TO EVALUATE, OBSERVE / ASSESS, AND MONITOR, RADIO AERIAL INSTALLER TO OBSERVE AND MONITOR, PROVIDE SKILLED THERAPEUTIC INTERVENTION, ACTIVITY, EDUCATION, AND TRAINING TO ADDRESS SAFETY AND INDEPENDENCE OF ADLS AND FUNCTIONAL TRANSFERS IN HOME ENVIRONMENT. ACTIVITIES OF DAILY LIVING (OT/MARIANNE) THERAPEUTIC EXERCISE (OT/RADIO AERIAL INSTALLER) ENERGY CONSERVATION/ACTIVITY DEMAND (OT/MARIANNE) OT/RADIO AERIAL INSTALLER TO MONITOR AND EDUCATE ON OXYGEN SATURATION DURING ADLS/IADLS, NOTIFY PHYSICIAN AND/OR THE RN CLINICAL RN CORONARY CARE UNIT FOR PHYSICIAN NOTIFICATION AND IF O2 SATS BELOW 90% AFTER 10 MIN OF REST. OT / MARIANNE TO IDENTIFY FALL RISK FACTORS; EDUCATE THE PATIENT/CAREGIVER ON WAYS TO REDUCE FALL RISK FACTORS AND ESTABLISH HOME EXERCISE PROGRAM TO MINIMIZE FALL RISK. MAY TEACH THE PATIENT FLOOR RECOVERY WHEN CLINICALLY APPROPRIATE. OT/RADIO AERIAL INSTALLER TO EDUCATE ON HYPERTENSION SELF-MANAGEMENT OT/MARIANNE TO EDUCATE ON ATRIAL FIBRILLATION SELF-MANAGEMENT.] Goal Patient Goal - NOT BE HOMEBO UND Goal Provider Goal - PATIENT / CAREGIVER WILL VERBALIZE/DEMONSTRATE UNDERSTANDING OF MEASURES TO MANAGE ALTERED RESPIRATORY STATUS BY END OF EPISODE. Goal Provider Goal - PATIENT / CAREGIVER WILL VERBALIZE/DEMONSTRATE ABILITY TO CARE AND MANAGEMENT OF TRACHEOSTOMY BY END OF EPISODE. Goal Provider Goal - PATIENT/CAREGIVER WILL VERBALIZE/DEMONSTRATE UNDERSTANDING OF FALL RISK FACTORS AND IMPLEMENT STRATEGIES TO MINIMIZE FALL RISK. PATIENT/CAREGIVER WILL VERBALIZE/DEMONSTRATE AN ABILITY TO ADHERE TO FALL REDUCTION SELF-MANAGEMENT AND LIFE-STYLE CHANGES BY END OF EPISODE Goal Provider Goal - PATIENT/CAREGIVER WILL VERBALIZE UNDERSTANDING OF CARE AND MANAGEMENT OF ANEMIA BY END OF EPISODE. Goal Provider Goal - A PLAN OF CARE WILL BE ESTABLISHED THAT MEETS THE PATIENT S NEEDS. PATIENT WILL DEMONSTRATE OXYGEN SATURATION WITHIN NORMAL LIMITS OR PATIENT S OPTIMAL LEVEL ESTABLISHED BY THE PHYSICIAN THROUGHOUT CARE. CHANGES TO CO-MORBID CONDITIONS AND ANY NEW CONDITIONS WILL BE IDENTIFIED AND REPORTED TO THE PHYSICIAN. Goal Provider Goal - PATIENT / CAREGIVER WILL VERBALIZE / DEMONSTRATE UNDERSTANDING OF PAIN CONTROL MEASURES BY END OF EPISODE Goal Provider Goal - PATIENT/CAREGIVER WILL VERBALIZE UNDERSTANDING OF SIGNS AND SYMPTOMS THAT PUT THE PATIENT AT RISK FOR HOSPITALIZATION /EMERGENCY ROOM VISITS, WHEN TO NOTIFY NURSE/PHYSICIAN OF COMPLICATIONS/DECLINE AND WHEN TO CALL 911. Goal Provider Goal - PATIENT / CAREGIVER WILL VERBALIZE/DEMONSTRATE UNDERSTANDING OF MEASURES TO MANAGE ALTERED CARDIOVASCULAR STATUS BY END OF EPISODE Goal Provider Goal - PATIENT / CAREGIVER WILL VERBALIZE/DEMONSTRATE AN ABILITY TO ADHERE TO SELF-MANAGEMENT OF HTN TO MINIMIZE COMPLICATIONS AND AVOID HOSPITALIZATION BY END OF EPISODE. Goal Provider Goal - HEART FAILURE CONDITION WILL BE CONTROLLED THROUGHOUT THE EPISODE. Goal Provider Goal - BLOOD SUGARS WILL REMAIN WITHIN ESTABLISHED RANGES AND DIABETES CONTROLLED THROUGHOUT EPISODE. Goal Provider Goal - PATIENT/CAREGIVER WILL VERBALIZE/DEMONSTRATE ABILITY TO ADHERE TO SELF-MANAGEMENT OF HYPOTENSION TO MINIMIZE COMPLICATIONS AND AVOID HOSPITALIZATION BY THE END OF EPISODE. Goal Provider Goal - PATIENT / CAREGIVER WILL VERBALIZE/DEMONSTRATE AN ABILITY TO ADHERE TO SELF-MANAGEMENT OF HEART ARRHYTHMIA TO MINIMIZE COMPLICATIONS AND AVOID HOSPITALIZATION BY END OF EPISODE. Goal Provider Goal - PATIENT/CAREGIVER TO VERBALIZE, AND CONSISTENTLY DEMONSTRATE EFFECTIVE, SAFE MANAGEMENT OF MEDICATION INCLUDING KNOWLEDGE OF EFFECTIVENESS, POTENTIAL SIDE EFFECTS AND DRUG REACTIONS AND WHEN TO CONTACT THE APPROPRIATE CARE PROVIDER. PATIENT/CAREGIVER WILL BE ABLE TO VERBALIZE UNDERSTANDING OF MEDICATION REGIMEN AND ACCURATELY TAKE MEDICATIONS PRESCRIBED WITHOUT ADVERSE EFFECTS BY END OF EPISODE Goal Provider Goal - PT STG: PATIENT WILL DEMONSTRATE IMPROVED BED MOBILITY TO REDUCE THE RISK OF SKIN INTEGRITY ISSUES FROM SBA TO MS WITHIN 2 WKS. PT STG: PATIENT WILL DEMONSTRATE REDUCED GAIT DEVIATIONS TO REDUCE THE RISK FOR FALLING AND MINIMIZE STRAIN ON KNEES/HIPS AND BACK EVIDENCED BY IMPROVED STEP LENGTH, HEEL STRIKE, FT CLEARANCE, USING A ROLLATOR TO WALK W/ SUPV IN ORDER TO ACCESS ALL ROOMS IN APT. WITHIN 3 WKS. PT LTG: PATIENT WILL DEMONSTRATE REDUCED GAIT DEVIATIONS TO REDUCE THE RISK FOR FALLING AND MINIMIZE STRAIN ON KNEES/HIPS AND BACK EVIDENCED BY IMPROVED MACK, AMB. DISTANCE, AND ADEQUATE INGA USING A ROLLATOR, MOD INDEP, IN ORDER TO ACCESS ALL ROOMS IN APT AND FOR COMMUNITY AMB. WITHIN 8 WKS. PT STG: PATIENT WILL DEMONSTRATE INCREASED STRENGTH OF BLE FROM 3+/5 TO 4-/5 WITHIN 3 WKS IN ORDER TO IMPROVE OVERALL ACTIVITY TOLERANCE, AND STABILITY DURING TRANSFERS, GAIT, STAIR MGT, AND STANDING ADLS. PT LTG: PATIENT WILL DEMONSTRATE INCREASED STRENGTH OF BLE FROM 4-/5 TO 4+/5 WITHIN 8 WKS IN ORDER TO IMPROVE AMB. DISTANCE, FUNCTIONAL PERFORMANCE, AND INDEPENDENCE. PT STG: PATIENT WILL DEMONSTRATE IMPROVED ABILITY TO SAFELY NEGOTIATE STAIRS FROM WILLIE TO SBA WITH 2 STEPS W/O HANDRAIL VIA FRONT DOOR AND 3 STEPS USING CHRISTIAN. HANDRAILS VIA BACK DOOR IN ORDER TO ENTER/EXIT HOME WITHIN 3 WKS. PT LTG: PATIENT WILL DEMONSTRATE IMPROVED ABILITY TO SAFELY NEGOTIATE STAIRS FROM SBA TO MS WITH 2 STEPS W/O HANDRAIL VIA FRONT DOOR AND 3 STEPS USING CHRISTIAN. HANDRAILS VIA BACK DOOR IN ORDER TO ENTER/EXIT HOME WITHIN 8 WKS. PT LTG: PATIENT WILL MAINTAIN OXYGEN SATURATION WITHIN PHYSICIAN ORDERED PARAMETERS THROUGHOUT EPISODE OF CARE. PT LTG: EARLY IDENTIFICATION OF WORSENING DEPRESSION WITH TIMELY SN AND/OR PHYSICIAN NOTIFICATION. PT GOAL: PATIENT WILL DEMONSTRATE UNDERSTANDING OF PAIN MANAGEMENT TECHNIQUES EVIDENCED BY REDUCED PAIN PATIENT S BLOOD SUGAR WILL REMAIN WELL CONTROLLED WITH SELF-MANAGEMENT THROUGHOUT EPISODE OF CARE. PT GOAL: PATIENT/CAREGIVER WILL VERBALIZE UNDERSTANDING OF SIGNS AND SYMPTOMS THAT PUT THE PATIENT AT RISK FOR HOSPITALIZATION /EMERGENCY ROOM VISITS, WHEN TO NOTIFY NURSE/PHYSICIAN OF COMPLICATIONS/DECLINE AND WHEN TO CALL 911. PT GOAL: PATIENT/CAREGIVER WILL BE ABLE TO VERBALIZE UNDERSTANDING OF ARTHRITIS EDUCATION, SIGNS/SYMPTOMS TO REPORT, WELL SELF-MANAGEMENT AND LIFE-STYLE CHANGES TO IMPROVE QUALITY OF LIFE AND REDUCE CAREGIVER BURDEN BY END OF EPISODE. PT STG: PATIENT WILL BE ABLE TO WEIGH SELF PT LTG: PATIENT/CAREGIVER WILL BE ABLE TO IDENTIFY SIGNS OF EXACERBATION OF HEART FAILURE AND VERBALIZE / DEMONSTRATE HOW TO MANAGE SYMPTOMS AND HOW TO ADHERE TO HEART FAILURE SELF-MANAGEMENT AND LIFE-STYLE CHANGES BY END OF EPISODE. PT GOAL: PATIENT/CAREGIVER WILL BE ABLE TO IDENTIFY SIGNS OF EXACERBATION OF HYPERTENSION AND WILL VERBALIZE/DEMONSTRATE AN ABILITY TO ADHERE TO HYPERTENSION SELF-MANAGEMENT AND LIFE-STYLE CHANGES BY END OF EPISODE PT LTG: PATIENT WILL NOT EXPERIENCE CARDIAC OR RESPIRATORY COMPLICATIONS THROUGHOUT THE EPISODE OF CARE. PT GOAL: PATIENT/CAREGIVER WILL BE ABLE TO IDENTIFY SIGNS OF ATRIAL FIBRILLATION EXACERBATION AND WILL VERBALIZE/DEMONSTRATE AN ABILITY TO ADHERE TO ATRIAL FIBRILLATION SELF-MANAGEMENT AND LIFE-STYLE CHANGES BY END OF EPISODE. PT GOAL: PATIENT / CAREGIVER WILL DEMONSTRATE ADHERENCE TO PNEUMONIA SELF-MANAGEMENT BY END OF EPISODE. PT LTG: PATIENT/CAREGIVER WILL DEMONSTRATE ADHERENCE TO FALL REDUCTION SELF-MANAGEMENT AND REDUCING FALL RISK FACTORS TO MINIMIZE FALL RISK BY END OF EPISODE Goal Provider Goal - OT LTG: PATIENT WILL DEMONSTRATE IMPROVEMENT IN MODIFIED MIKY INDEX SCORE FROM 91 TO 93 INDICATING DECREASED DEPENDENCY ON CAREGIVER ASSISTANCE WITH ACTIVITIES OF DAILY LIVING WITHIN 3 WEEKS. OT LTG: PATIENT WILL DEMONSTRATE IMPROVED BUE MUSCLE STRENGTH EVIDENCED BY AN IMPROVEMENT IN MMT/FUNCTIONAL STRENGTH FROM 4/5 TO 4+/5 WITHIN 3 WEEKS IN ORDER TO COMPLETE ADLS. OT STG: PATIENT WILL DEMO/ REPORT 2-3 ECT DURING FUNCTIONAL TASK FOR INCREASED HOME SAFETY WITHIN 2 WEEKS. OT LTG: PATIENT WILL INCORPORATE ENERGY CONSERVATION TECHNIQUES TO DECREASE ACTIVITY DEMAND EVIDENCED BY A REDUCTION IN MARIA DEL CARMEN SCORE FROM 13 TO 10 DURING FUNCTIONAL TASK WITHIN 3 WEEKS. OT LTG: PATIENT WILL MAINTAIN OXYGEN SATURATION WITHIN PHYSICIAN ORDERED PARAMETERS THROUGHOUT THE EPISODE OF CARE. OT LTG: PATIENT/CAREGIVER WILL BE ABLE TO IMPLEMENT RECOMMENDATIONS SPECIFIC TO FALL REDUCTION FOR IMPROVED ADL/IADL COMPLETION AND HOME SAFETY BY END OF EPISODE. OT LTG: PATIENT WILL BE INDEPENDENT WITH IMPLEMENTATION OF HEP WITHIN 3 WEEKS. OT GOAL: PATIENT/CAREGIVER WILL BE ABLE TO IDENTIFY SIGNS OF EXACERBATION OF HYPERTENSION AND WILL VERBALIZE/DEMONSTRATE AN ABILITY TO ADHERE TO HYPERTENSION SELF-MANAGEMENT AND LIFE-STYLE CHANGES BY END OF EPISODE. OT GOAL: PATIENT/CAREGIVER WILL BE ABLE TO IDENTIFY SIGNS OF ATRIAL FIBRILLATION EXACERBATION AND WILL VERBALIZE/DEMONSTRATE AN ABILITY TO ADHERE TO ATRIAL FIBRILLATION SELF-MANAGEMENT AND LIFE-STYLE CHANGES BY END OF EPISODE . Encounters Start Date/Time End Date/Time Encounter Type Admission Type Attending [facility] Care Department Encounter ID Discharge Date Discharge Status Discharge Condition Discharge Reason Percent Goals Met 2025-02-07 00:00:00 2025-04-07 00:00:00 Outpatient NEW ADMISSION [facility] [id number] 26.42
--- OUTSIDE RECORDS SUMMARY | 2025-04-06 18:00 | XMS_ITS | Clinical Summary ---
Author Organization Unknown Care Team Providers Care Aircraft Cleaning Supervisor Name Role Phone DIGNA ARIEL, ESTRELLA Unavailable Unava dinora STOKES RN, FRANKIE Unavailable Unavailabl e KARI PT, DIDI Unavailable Unavailable NAT CHOPPER FEEDER, GAUDENCIO Unavailable Unavailabl e RADHA OT, ROLANDO Unavailable Unavailable JOANNE STEVEN, HATTIE Unavailable Unavailable Payers Payer Name Policy Type Policy Number Effective Date Expira tion Date MEDICARE.[facility] [id number] Problems Condition Name Condition Details Condition Category Status Onset Date Resolution Date Last Treatment Date Treating Clinician Comments 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 02-07 [...] OF PNEUMONIA (RECURRENT) Active 02-07 00:00: 00 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) USE OF SYSTEMIC STEROIDS Active 02-07 [...] 80 mg tablet 02-07 00:00: 00 Yes [id number] CHOLESTEROL 1 tablet DAILY 1 tablet DAILY (route: oral) Med Classific ation: Cardiovas cular Therapy Agents digoxin 125 mcg (0.125 mg) tablet 02-07 00:00: 00 02-21 23:59 :00 No [id number] HEART RHYTHM 1 tablet DAILY 1 tablet DAILY (route: oral) Med Classific ation: Cardiovas cular Therapy Agents escitalopra m 10 mg tablet 02-07 00:00: 00 Yes [id number] MOOD 1 tablet DAILY 1 tablet DAILY (route: oral) Med Classific ation: Central Nervous System Agents ezetimibe 10 mg tablet 02-07 00:00: 00 Yes [id number] CHOLESTEROL 1 tablet DAILY 1 tablet DAILY (route: oral) Med Classific ation: Cardiovas cular Therapy Agents metoprolol succinate ER 25 mg tablet,exte nded release 24 hr 02-07 00:00: 00 02-21 23:59 :00 No [id number] BLOOD PRESSURE 0.5 tablet DAILY 0.5 tablet DAILY (route: oral) Med Classific ation: Cardiovas cular Therapy Agents pantoprazol e 40 mg tablet,joão yed release 02-07 00:00: 00 02-21 23:59 :00 No [id number] STOMACH ACID 1 tablet DAILY 1 tablet DAILY (route: oral) Med Classific ation: Gastroint estinal Therapy Agents prednisone 5 mg tablet 02-07 00:00: 00 Yes [id number] ADRENAL INSUFFICIEN CY 1 tablet DAILY 1 tablet DAILY (route: oral) Med Classific ation: Endocrine spironolact one 25 mg tablet 02-07 00:00: 00 Yes [id number] FLUID RETENTION 0.5 tablet DAILY 0.5 tablet DAILY (route: oral) Med Classific ation: Cardiovas cular Therapy Agents tamsulosin 0.4 mg capsule 02-07 00:00: 00 02-21 23:59 :00 No [id number] URINARY HEALTH 1 capsule DAILY 1 capsule DAILY (route: oral) Med Classific ation: Genitouri nary Therapy acetaminoph en 325 mg tablet 2024-05 00:00: 00 Yes [id number] PAIN 2 tablet 2 TIMES DAILY 2 tablet 2 TIMES DAILY (route: oral) Med Classific ation: Analgesic , Anti-infl ammatory or Antipyret ic aspirin 81 mg tablet 2024-05 00:00: 00 Yes [id number] ANTICOAGULA NT 1 tablet DAILY 1 tablet DAILY (route: oral) Med Classific ation: Hematolog ical Agents ipratropium 0.5 mg-albutero l 3 mg (2.5 mg base)/3 mL nebulizatio n soln 2024-05 00:00: 00 Yes [id number] COPD 3 mL EVERY 6 HOURS 3 mL EVERY 6 HOURS (route: inhalation ) Med Classific ation: Respirato ry Therapy Agents Lanoxin 62.5 mcg (0.0625 mg) tablet 2024-05 00:00: 00 Yes [id number] CHF 1 tablet DAILY 1 tablet DAILY (route: oral) Med Classific ation: Cardiovas cular Therapy Agents Lasix 20 mg tablet 2024-05 00:00: 00 Yes [id number] CHF 1 tablet DAILY 1 tablet DAILY (route: oral) Med Classific ation: Cardiovas cular Therapy Agents Toprol XL 25 mg tablet,exte nded release 2024-05 00:00: 00 Yes [id number] BP 25 mg DAILY 25 mg DAILY [...] SYSTEM MANAGEMENT; RN TO ASSESS AND TEACH, CATTLE RANCHER/MANAGER FILTER TO OBSERVE AND TEACH RELATED TO ALTERED RESPIRATORY STATUS TO MINIMIZE COMPLICATIONS AND REDUCE HOSPITALIZATION. [code = SN 1WK9 PT 1WK1 OT EFFECTIVE 02/10/2025K1 RESPIRATORY SYSTEM MANAGEMENT; RN TO ASSESS AND TEACH, CATTLE RANCHER/MANAGER FILTER TO OBSERVE AND TEACH RELATED TO ALTERED RESPIRATORY STATUS TO MINIMIZE COMPLICATIONS AND REDUCE HOSPITALIZATION.] Future Scheduled Test TRACHEOSTO MY CARE MANAGEMENT; RN/CATTLE RANCHER/MANAGER FILTER TO INSTRUCT PATIENT/CAREGIVER ON CARE AND MANAGEMENT OF TRACHEOSTOMY. RN/ CATTLE RANCHER/MANAGER FILTER TO PROVIDE SKILLED TEACHING ON TRACH COLLAR SUCTIONING PRN WITH 14 FR SUCTION CATHETER PER PATIENT TRACH CARE WITH INNER CANNULA: REMOVE INNER CANNULA, CLEANSE WITH NORMAL SALINE AND OR STERILE WATER AND REINSERT NON-DISPOSABLE CANNULA SIZE OF INNER CANNULA 5 BROOKS [code = TRACHEOSTOMY CARE MANAGEMENT; RN/CATTLE RANCHER/MANAGER FILTER TO INSTRUCT PATIENT/CAREGIVER ON CARE AND MANAGEMENT OF TRACHEOSTOMY. RN/ CATTLE RANCHER/MANAGER FILTER TO PROVIDE SKILLED TEACHING ON TRACH COLLAR SUCTIONING PRN WITH 14 FR SUCTION CATHETER PER PATIENT TRACH CARE WITH INNER CANNULA: REMOVE INNER CANNULA, CLEANSE WITH NORMAL SALINE AND OR STERILE WATER AND REINSERT NON-DISPOSABLE CANNULA SIZE OF INNER CANNULA 5 BROOKS] Future Scheduled Test FALL REDUC TION MANAGEMENT; RN TO ASSESS AND OBSERVE, CATTLE RANCHER/MANAGER FILTER TO OBSERVE FALL RISK FACTORS AND EDUCATE PATIENT/CAREGIVER ON STRATEGIES TO MINIMIZE THE RISK OF FALLING. [code = FALL REDUCTION MANAGEMENT; RN TO ASSESS AND OBSERVE, CATTLE RANCHER/MANAGER FILTER TO OBSERVE FALL RISK FACTORS AND EDUCATE PATIENT/CAREGIVER ON STRATEGIES TO MINIMIZE THE RISK OF FALLING.] Future Scheduled Test ANEMIA MAN AGEMENT; RN TO ASSESS AND TEACH, MANAGER FILTER/CATTLE RANCHER TO OBSERVE AND TEACH AND PROVIDE EDUCATION ON ANEMIA. [code = ANEMIA MANAGEMENT; RN TO ASSESS AND TEACH, MANAGER FILTER/CATTLE RANCHER TO OBSERVE AND TEACH AND PROVIDE EDUCATION ON ANEMIA.] Future Scheduled Test RN TO OBSE RVE, ASSESS, EVALUATE, AND DEVELOP AN INDIVIDUALIZED PLAN OF CARE. AGENCY MAY ACCEPT ORDERS FROM CONSULTING PHYSICIANS RN TO OBSERVE AND ASSESS, CATTLE RANCHER/MANAGER FILTER TO OBSERVE FOR RISK FOR FALLS AND INSTRUCT IN FALL PREVENTION, HOME SAFETY, MEDICATION MANAGEMENT, INFECTION PREVENTION, AND NUTRITION MANAGEMENT. RN/CATTLE RANCHER/MANAGER FILTER NURSE MAY PERFORM O2 SATURATION LEVEL ON ADMISSION AND PRN FOR RN TO ASSESS/CATTLE RANCHER TO OBSERVE PATIENT, WITH NOTIFICATION TO THE PHYSICIAN IF SATURATION IS 90% IN THE ABSENCE OF MORE SPECIFIC PARAMETERS FROM THE PHYSICIAN. AGENCY MAY PERFORM A RESUMPTION OF CARE VISIT FOLLOWING ANY HOSPITAL ADMISSION. RN/CATTLE RANCHER/MANAGER FILTER TO MONITOR CO-MORBID CONDITIONS LISTED ON THE PLAN OF CARE AND ANY NEW CONDITIONS THAT PRESENT THEMSELVES DURING THIS EPISODE TO IDENTIFY CHANGES AND INTERVENE TO MINIMIZE COMPLICATIONS. [code = RN TO OBSERVE, ASSESS, EVALUATE, AND DEVELOP AN INDIVIDUALIZED PLAN OF CARE. AGENCY MAY ACCEPT ORDERS FROM CONSULTING PHYSICIANS RN TO OBSERVE AND ASSESS, CATTLE RANCHER/MANAGER FILTER TO OBSERVE FOR RISK FOR FALLS AND INSTRUCT IN FALL PREVENTION, HOME SAFETY, MEDICATION MANAGEMENT, INFECTION PREVENTION, AND NUTRITION MANAGEMENT. RN/CATTLE RANCHER/MANAGER FILTER NURSE MAY PERFORM O2 SATURATION LEVEL ON ADMISSION AND PRN FOR RN TO ASSESS/CATTLE RANCHER TO OBSERVE PATIENT, WITH NOTIFICATION TO THE PHYSICIAN IF SATURATION IS 90% IN THE ABSENCE OF MORE SPECIFIC PARAMETERS FROM THE PHYSICIAN. AGENCY MAY PERFORM A RESUMPTION OF CARE VISIT FOLLOWING ANY HOSPITAL ADMISSION. RN/CATTLE RANCHER/MANAGER FILTER TO MONITOR CO-MORBID CONDITIONS LISTED ON THE PLAN OF CARE AND ANY NEW CONDITIONS THAT PRESENT THEMSELVES DURING THIS EPISODE TO IDENTIFY CHANGES AND INTERVENE TO MINIMIZE COMPLICATIONS.] Future Scheduled Test PAIN MANAG EMENT; RN TO ASSESS AND TEACH, MANAGER FILTER/CATTLE RANCHER TO OBSERVE AND TEACH AND PROVIDE EDUCATION ON PAIN MANAGEMENT TECHNIQUES. [code = PAIN MANAGEMENT; RN TO ASSESS AND TEACH, MANAGER FILTER/CATTLE RANCHER TO OBSERVE AND TEACH AND PROVIDE EDUCATION ON PAIN MANAGEMENT TECHNIQUES.] Future Scheduled Test RISK FOR H OSPITALIZATION; RN TO ASSESS/TEACH, MANAGER FILTER/CATTLE RANCHER TO OBSERVE/TEACH PATIENT/CAREGIVER ON RISK FOR HOSPITALIZATION/EMERGENCY ROOM VISITS, TEACH SIGNS AND SYMPTOMS THAT PUT PATIENT AT RISK, WHEN TO NOTIFY NURSE/PHYSICIAN OF COMPLICATIONS/DECLINE, AND WHEN TO CALL 911. [code = RISK FOR HOSPITALIZATION; RN TO ASSESS/TEACH, MANAGER FILTER/CATTLE RANCHER TO OBSERVE/TEACH PATIENT/CAREGIVER ON RISK FOR HOSPITALIZATION/EMERGENCY ROOM VISITS, TEACH SIGNS AND SYMPTOMS THAT PUT PATIENT AT RISK, WHEN TO NOTIFY NURSE/PHYSICIAN OF COMPLICATIONS/DECLINE, AND WHEN TO CALL 911.] Future Scheduled Test CARDIOVASC ULAR SYSTEM; RN TO ASSESS/TEACH, CATTLE RANCHER/MANAGER FILTER TO OBSERVE/TEACH RELATED TO ALTERED CARDIOVASCULAR STATUS TO MINIMIZE COMPLICATIONS AND REDUCE HOSPITALIZATION. [code = CARDIOVASCULAR SYSTEM; RN TO ASSESS/TEACH, CATTLE RANCHER/MANAGER FILTER TO OBSERVE/TEACH RELATED TO ALTERED CARDIOVASCULAR STATUS TO MINIMIZE COMPLICATIONS AND REDUCE HOSPITALIZATION.] Future Scheduled Test HYPERTENSI ON MANAGEMENT; RN TO ASSESS AND TEACH, CATTLE RANCHER/MANAGER FILTER TO OBSERVE AND TEACH WARNING SIGNS AND SYMPTOMS TO AVOID HOSPITALIZATION. [code = HYPERTENSION MANAGEMENT; RN TO ASSESS AND TEACH, CATTLE RANCHER/MANAGER FILTER TO OBSERVE AND TEACH WARNING SIGNS AND SYMPTOMS TO AVOID HOSPITALIZATION.] Future Scheduled Test HEART FAIL URE MONITORING RN/MANAGER FILTER/CATTLE RANCHER TO MONITOR PATIENT FOR SIGNS AND SYMPTOMS OF HEART FAILURE EXACERBATION, MONITOR FOR ADHERENCE WITH MEDICATION AND HEART FAILURE MANAGEMENT REGIMEN. [code = HEART FAILURE MONITORING RN/MANAGER FILTER/CATTLE RANCHER TO MONITOR PATIENT FOR SIGNS AND SYMPTOMS OF HEART FAILURE EXACERBATION, MONITOR FOR ADHERENCE WITH MEDICATION AND HEART FAILURE MANAGEMENT REGIMEN.] Future Scheduled Test DIABETES M ONITORING RN/MANAGER FILTER/CATTLE RANCHER TO MONITOR BLOOD SUGAR LOG FOR BLOOD SUGAR READINGS THAT ARE BEING CHECKED BY PATIENT, CAREGIVER NEEDED FOR SIGNS AND SYMPTOMS OF HYPER/HYPOGLYCEMIA. PATIENT THERAPEUTIC BLOOD SUGAR PARAMETERS ARE 70 - 300. REPORT BLOOD SUGARS OUT OF RANGE TO PHYSICIAN. NURSE MAY PERFORM FINGER STICK BLOOD GLUCOSE NEEDED FOR SIGNS AND SYMPTOMS OF HYPO AND HYPERGLYCEMIA. RN/MANAGER FILTER/CATTLE RANCHER TO MONITOR ADHERENCE OF PATIENT/CAREGIVER PERFORMING DIABETIC FOOT CARE AND MAY PERFORM DIABETIC FOOT CARE PRN. RN/MANAGER FILTER/CATTLE RANCHER TO MONITOR FOR ADHERENCE TO DIABETIC SELF-CARE AND MANAGEMENT INCLUDING MEDICATIONS. [code = DIABETES MONITORING RN/MANAGER FILTER/CATTLE RANCHER TO MONITOR BLOOD SUGAR LOG FOR BLOOD SUGAR READINGS THAT ARE BEING CHECKED BY PATIENT, CAREGIVER NEEDED FOR SIGNS AND SYMPTOMS OF HYPER/HYPOGLYCEMIA. PATIENT THERAPEUTIC BLOOD SUGAR PARAMETERS ARE 70 - 300. REPORT BLOOD SUGARS OUT OF RANGE TO PHYSICIAN. NURSE MAY PERFORM FINGER STICK BLOOD GLUCOSE NEEDED FOR SIGNS AND SYMPTOMS OF HYPO AND HYPERGLYCEMIA. RN/MANAGER FILTER/CATTLE RANCHER TO MONITOR ADHERENCE OF PATIENT/CAREGIVER PERFORMING DIABETIC FOOT CARE AND MAY PERFORM DIABETIC FOOT CARE PRN. RN/MANAGER FILTER/CATTLE RANCHER TO MONITOR FOR ADHERENCE TO DIABETIC SELF-CARE AND MANAGEMENT INCLUDING MEDICATIONS.] Future Scheduled Test HYPOTENSIO N MANAGEMENT; RN TO ASSESS AND TEACH/ CATTLE RANCHER /MANAGER FILTER TO OBSERVE AND TEACH WARNING SIGNS AND SYMPTOMS TO AVOID HOSPITALIZATION. [code = HYPOTENSION MANAGEMENT; RN TO ASSESS AND TEACH/ CATTLE RANCHER /MANAGER FILTER TO OBSERVE AND TEACH WARNING SIGNS AND SYMPTOMS TO AVOID HOSPITALIZATION.] Future Scheduled Test ARRHYTHMIA MANAGEMENT; RN TO ASSESS AND TEACH, CATTLE RANCHER/MANAGER FILTER TO OBSERVE AND TEACH WARNING SIGNS AND SYMPTOMS TO AVOID HOSPITALIZATION. [code = ARRHYTHMIA MANAGEMENT; RN TO ASSESS AND TEACH, CATTLE RANCHER/MANAGER FILTER TO OBSERVE AND TEACH WARNING SIGNS AND SYMPTOMS TO AVOID HOSPITALIZATION.] Future Scheduled Test MEDICATION MANAGEMENT; RN/CATTLE RANCHER/MANAGER FILTER TO REVIEW MEDICATIONS FOR INTERACTIONS, EFFECTIVENESS OF DRUG THERAPY, AND SIGNS/SYMPTOMS OF ADVERSE REACTIONS. MAY INSTRUCT AND REINFORCE MEDICATION TEACHING RELATED TO THE USE OF MEDICATIONS, DOSAGE, FREQUENCY, PURPOSE, SIDE EFFECTS, AND TO REPORT COMPLICATIONS. [code = MEDICATION MANAGEMENT; RN/CATTLE RANCHER/MANAGER FILTER TO REVIEW MEDICATIONS FOR INTERACTIONS, EFFECTIVENESS OF [...] EVAL UATE, OBSERVE / ASSESS, AND MONITOR, CHOPPER FEEDER TO OBSERVE AND MONITOR, PROVIDE SKILLED THERAPEUTIC INTERVENTION, ACTIVITY, EDUCATION, AND TRAINING TO ADDRESS GEN. WEAKNESS, POOR OVERALL ACTIVITY TOLERANCE, AND FUNCTIONAL LIMITATIONS IMPACTING SAFETY AND INDEPENDENCE. BED MOBILITY (PT/CHOPPER FEEDER) PT/CHOPPER FEEDER TO PROVIDE GAIT TRAINING FOR IMPROVED MOBILITY AND /OR TO NORMALIZE GAIT PATTERN THERAPEUTIC EXERCISES AND ESTABLISHING A HOME EXERCISE PROGRAM (PT/CHOPPER FEEDER) PT/CHOPPER FEEDER TO PROVIDE STAIR TRAINING PT / CHOPPER FEEDER TO MONITOR AND EDUCATE ON OXYGEN SATURATION DURING ADLS/IADLS, NOTIFY PHYSICIAN AND/OR THE RN CLINICAL COLD PRESS OPERATOR FOR PHYSICIAN NOTIFICATION AND IF O2 SATS BELOW PHYSICIAN ORDERED PARAMETERS AFTER 10 MIN OF REST PT / CHOPPER FEEDER TO OBSERVE FOR EARLY SIGNS AND SYMPTOMS OF DEPRESSION OR DEPRESSION GETTING WORSE AND TO EDUCATE ON HOW TO FIND HELP. PT / CHOPPER FEEDER MAY EDUCATE ON PAIN MANAGEMENT CLINICALLY INDICATED, INCLUDING NON-PHARMACOLOGICAL PAIN REDUCTION TECHNIQUES PT / CHOPPER FEEDER TO MONITOR FOR HYPO/HYPERGLYCEMIA AND CONDUCT ROUTINE FOOT INSPECTIONS. RECORD PATIENT REPORTED BLOOD SUGAR LEVELS AND NOTIFY PHYSICIAN AND/OR THE RN CLINICAL COLD PRESS OPERATOR FOR PHYSICIAN NOTIFICATION IF BLOOD SUGAR LEVELS ARE OUTSIDE ORDERED PARAMETERS. TEACH PATIENT/CAREGIVER ON DAILY FOOT INSPECTIONS PT / CHOPPER FEEDER TO INSTRUCT PATIENT/CAREGIVER ON RISK FOR HOSPITALIZATION/EMERGENCY ROOM VISITS, TEACH SIGNS AND SYMPTOMS THAT PUT PATIENT AT RISK, WHEN TO NOTIFY NURSE/PHYSICIAN OF COMPLICATIONS/DECLINE, AND WHEN TO CALL 911. PT/CHOPPER FEEDER TO EDUCATE ON ARTHRITIS SELF-MANAGEMENT PT / CHOPPER FEEDER TO EDUCATE ON HEART FAILURE SELF-MANAGEMENT PT / CHOPPER FEEDER TO EDUCATE ON HYPERTENSION SELF-MANAGEMENT PT TO ASSESS / CHOPPER FEEDER TO MONITOR CARDIO/RESPIRATORY SYSTEM; AND NOTIFY THE PHYSICIAN AND/OR THE RN CLINICAL COLD PRESS OPERATOR FOR PHYSICIAN NOTIFICATION FOR EARLY SIGNS AND SYMPTOMS OF EXACERBATION OR DETERIORATION. PT / CHOPPER FEEDER TO EDUCATE ON ATRIAL FIBRILLATION SELF-MANAGEMENT. PT / CHOPPER FEEDER TO EDUCATE ON PNEUMONIA / ASPIRATION PNEUMONIA SELF-MANAGEMENT. PT/CHOPPER FEEDER TO IDENTIFY FALL RISK FACTORS; EDUCATE THE PATIENT/CAREGIVER ON WAYS TO REDUCE FALL RISK FACTORS AND ESTABLISH HOME EXERCISE PROGRAM TO MINIMIZE FALL RISK. MAY TEACH THE PATIENT FLOOR RECOVERY WHEN CLINICALLY APPROPRIATE [code = PT TO EVALUATE, OBSERVE / ASSESS, AND MONITOR, CHOPPER FEEDER TO OBSERVE AND MONITOR, PROVIDE SKILLED THERAPEUTIC INTERVENTION, ACTIVITY, EDUCATION, AND TRAINING TO ADDRESS GEN. WEAKNESS, POOR OVERALL ACTIVITY TOLERANCE, AND FUNCTIONAL LIMITATIONS IMPACTING SAFETY AND INDEPENDENCE. BED MOBILITY (PT/CHOPPER FEEDER) PT/CHOPPER FEEDER TO PROVIDE GAIT TRAINING FOR IMPROVED MOBILITY AND /OR TO NORMALIZE GAIT PATTERN THERAPEUTIC EXERCISES AND ESTABLISHING A HOME EXERCISE PROGRAM (PT/CHOPPER FEEDER) PT/CHOPPER FEEDER TO PROVIDE STAIR TRAINING PT / CHOPPER FEEDER TO MONITOR AND EDUCATE ON OXYGEN SATURATION DURING ADLS/IADLS, NOTIFY PHYSICIAN AND/OR THE RN CLINICAL COLD PRESS OPERATOR FOR PHYSICIAN NOTIFICATION AND IF O2 SATS BELOW PHYSICIAN ORDERED PARAMETERS AFTER 10 MIN OF REST PT / CHOPPER FEEDER TO OBSERVE FOR EARLY SIGNS AND SYMPTOMS OF DEPRESSION OR DEPRESSION GETTING WORSE AND TO EDUCATE ON HOW TO FIND HELP. PT / CHOPPER FEEDER MAY EDUCATE ON PAIN MANAGEMENT CLINICALLY INDICATED, INCLUDING NON-PHARMACOLOGICAL PAIN REDUCTION TECHNIQUES PT / CHOPPER FEEDER TO MONITOR FOR HYPO/HYPERGLYCEMIA AND CONDUCT ROUTINE FOOT INSPECTIONS. RECORD PATIENT REPORTED BLOOD SUGAR LEVELS AND NOTIFY PHYSICIAN AND/OR THE RN CLINICAL COLD PRESS OPERATOR FOR PHYSICIAN NOTIFICATION IF BLOOD SUGAR LEVELS ARE OUTSIDE ORDERED PARAMETERS. TEACH PATIENT/CAREGIVER ON DAILY FOOT INSPECTIONS PT / CHOPPER FEEDER TO INSTRUCT PATIENT/CAREGIVER ON RISK FOR HOSPITALIZATION/EMERGENCY ROOM VISITS, TEACH SIGNS AND SYMPTOMS THAT PUT PATIENT AT RISK, WHEN TO NOTIFY NURSE/PHYSICIAN OF COMPLICATIONS/DECLINE, AND WHEN TO CALL 911. PT/CHOPPER FEEDER TO EDUCATE ON ARTHRITIS SELF-MANAGEMENT PT / CHOPPER FEEDER TO EDUCATE ON HEART FAILURE SELF-MANAGEMENT PT / CHOPPER FEEDER TO EDUCATE ON HYPERTENSION SELF-MANAGEMENT PT TO ASSESS / CHOPPER FEEDER TO MONITOR CARDIO/RESPIRATORY SYSTEM; AND NOTIFY THE PHYSICIAN AND/OR THE RN CLINICAL COLD PRESS OPERATOR FOR PHYSICIAN NOTIFICATION FOR EARLY SIGNS AND SYMPTOMS OF EXACERBATION OR DETERIORATION. PT / CHOPPER FEEDER TO EDUCATE ON ATRIAL FIBRILLATION SELF-MANAGEMENT. PT / CHOPPER FEEDER TO EDUCATE ON PNEUMONIA / ASPIRATION PNEUMONIA SELF-MANAGEMENT. PT/CHOPPER FEEDER TO IDENTIFY FALL RISK FACTORS; EDUCATE THE PATIENT/CAREGIVER ON WAYS TO REDUCE FALL RISK FACTORS AND ESTABLISH HOME EXERCISE PROGRAM TO MINIMIZE FALL RISK. MAY TEACH THE PATIENT FLOOR RECOVERY WHEN CLINICALLY APPROPRIATE] Future Scheduled Test AGENCY MAY PERFORM A RESUMPTION OF CARE VISIT FOLLOWING ANY HOSPITAL ADMISSION. OT TO EVALUATE, OBSERVE / ASSESS, AND MONITOR, DEPARTMENT HEAD COLLEGE OR UNIVERSITY TO OBSERVE AND MONITOR, PROVIDE SKILLED THERAPEUTIC INTERVENTION, ACTIVITY, EDUCATION, AND TRAINING TO ADDRESS SAFETY AND INDEPENDENCE OF ADLS AND FUNCTIONAL TRANSFERS IN HOME ENVIRONMENT. ACTIVITIES OF DAILY LIVING (OT/MARIANNE) THERAPEUTIC EXERCISE (OT/DEPARTMENT HEAD COLLEGE OR UNIVERSITY) ENERGY CONSERVATION/ACTIVITY DEMAND (OT/DEPARTMENT HEAD COLLEGE OR UNIVERSITY) OT/DEPARTMENT HEAD COLLEGE OR UNIVERSITY TO MONITOR AND EDUCATE ON OXYGEN SATURATION DURING ADLS/IADLS, NOTIFY PHYSICIAN AND/OR THE RN CLINICAL COLD PRESS OPERATOR FOR PHYSICIAN NOTIFICATION AND IF O2 SATS BELOW 90% AFTER 10 MIN OF REST. OT / DEPARTMENT HEAD COLLEGE OR UNIVERSITY TO IDENTIFY FALL RISK FACTORS; EDUCATE THE PATIENT/CAREGIVER ON WAYS TO REDUCE FALL RISK FACTORS AND ESTABLISH HOME EXERCISE PROGRAM TO MINIMIZE FALL RISK. MAY TEACH THE PATIENT FLOOR RECOVERY WHEN CLINICALLY APPROPRIATE. OT/DEPARTMENT HEAD COLLEGE OR UNIVERSITY TO EDUCATE ON HYPERTENSION SELF-MANAGEMENT OT/MARIANNE TO EDUCATE ON ATRIAL FIBRILLATION SELF-MANAGEMENT. [code = AGENCY MAY PERFORM A RESUMPTION OF CARE VISIT FOLLOWING ANY HOSPITAL ADMISSION. OT TO EVALUATE, OBSERVE / ASSESS, AND MONITOR, DEPARTMENT HEAD COLLEGE OR UNIVERSITY TO OBSERVE AND MONITOR, PROVIDE SKILLED THERAPEUTIC INTERVENTION, ACTIVITY, EDUCATION, AND TRAINING TO ADDRESS SAFETY AND INDEPENDENCE OF ADLS AND FUNCTIONAL TRANSFERS IN HOME ENVIRONMENT. ACTIVITIES OF DAILY LIVING (OT/MARIANNE) THERAPEUTIC EXERCISE (OT/DEPARTMENT HEAD COLLEGE OR UNIVERSITY) ENERGY CONSERVATION/ACTIVITY DEMAND (OT/MARIANNE) OT/DEPARTMENT HEAD COLLEGE OR UNIVERSITY TO MONITOR AND EDUCATE ON OXYGEN SATURATION DURING ADLS/IADLS, NOTIFY PHYSICIAN AND/OR THE RN CLINICAL COLD PRESS OPERATOR FOR PHYSICIAN NOTIFICATION AND IF O2 SATS BELOW 90% AFTER 10 MIN OF REST. OT / MARIANNE TO IDENTIFY FALL RISK FACTORS; EDUCATE THE PATIENT/CAREGIVER ON WAYS TO REDUCE FALL RISK FACTORS AND ESTABLISH HOME EXERCISE PROGRAM TO MINIMIZE FALL RISK. MAY TEACH THE PATIENT FLOOR RECOVERY WHEN CLINICALLY APPROPRIATE. OT/DEPARTMENT HEAD COLLEGE OR UNIVERSITY TO EDUCATE ON HYPERTENSION SELF-MANAGEMENT OT/MARIANNE TO [...] OF SKIN INTEGRITY ISSUES FROM SBA TO NV WITHIN 2 WKS. PT STG: PATIENT WILL [...] TO SAFELY NEGOTIATE STAIRS FROM SBA TO NV WITH 2 STEPS W/O HANDRAIL VIA FRONT [...] End Date/Time Encounter Type Admission Type Attending [facility] Care Department Encounter ID Discharge Date Discharge Status Discharge Condition Discharge Reason Percent Goals Met 2025-02-07 00:00:00 2025-04-07 00:00:00 Outpatient NEW ADMISSION [facility] [id number] 26.42
--- OUTSIDE RECORDS SUMMARY | 2025-04-06 18:00 | XMS_ITS | Clinical Summary ---
Author Organization Unknown Care Team Providers Care Factory Helper Name Role Phone DIGNA ARIEL, ESTRELLA Unavailable Unava dinora STOKES RN, FRANKIE Unavailable Unavailabl e KARI PT, DIDI Unavailable Unavailable NAT EPIC BEACON ANALYST, GAUDENCIO Unavailable Unavailabl e RADHA OT, ROLANDO Unavailable Unavailable JOANNE STEVEN, HATTIE Unavailable Unavailable Payers Payer Name Policy Type Policy Number Effective Date Expira tion Date MEDICARE.[facility] [id number] Problems Condition Name Condition Details Condition Category Status Onset Date Resolution Date Last Treatment Date Treating Clinician Comments 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 02-07 [...] OF PNEUMONIA (RECURRENT) Active 02-07 00:00: 00 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) USE OF SYSTEMIC STEROIDS Active 02-07 [...] 80 mg tablet 02-07 00:00: 00 Yes [id number] CHOLESTEROL 1 tablet DAILY 1 tablet DAILY (route: oral) Med Classific ation: Cardiovas cular Therapy Agents digoxin 125 mcg (0.125 mg) tablet 02-07 00:00: 00 02-21 23:59 :00 No [id number] HEART RHYTHM 1 tablet DAILY 1 tablet DAILY (route: oral) Med Classific ation: Cardiovas cular Therapy Agents escitalopra m 10 mg tablet 02-07 00:00: 00 Yes [id number] MOOD 1 tablet DAILY 1 tablet DAILY (route: oral) Med Classific ation: Central Nervous System Agents ezetimibe 10 mg tablet 02-07 00:00: 00 Yes [id number] CHOLESTEROL 1 tablet DAILY 1 tablet DAILY (route: oral) Med Classific ation: Cardiovas cular Therapy Agents metoprolol succinate ER 25 mg tablet,exte nded release 24 hr 02-07 00:00: 00 02-21 23:59 :00 No [id number] BLOOD PRESSURE 0.5 tablet DAILY 0.5 tablet DAILY (route: oral) Med Classific ation: Cardiovas cular Therapy Agents pantoprazol e 40 mg tablet,joão yed release 02-07 00:00: 00 02-21 23:59 :00 No [id number] STOMACH ACID 1 tablet DAILY 1 tablet DAILY (route: oral) Med Classific ation: Gastroint estinal Therapy Agents prednisone 5 mg tablet 02-07 00:00: 00 Yes [id number] ADRENAL INSUFFICIEN CY 1 tablet DAILY 1 tablet DAILY (route: oral) Med Classific ation: Endocrine spironolact one 25 mg tablet 02-07 00:00: 00 Yes [id number] FLUID RETENTION 0.5 tablet DAILY 0.5 tablet DAILY (route: oral) Med Classific ation: Cardiovas cular Therapy Agents tamsulosin 0.4 mg capsule 02-07 00:00: 00 02-21 23:59 :00 No [id number] URINARY HEALTH 1 capsule DAILY 1 capsule DAILY (route: oral) Med Classific ation: Genitouri nary Therapy acetaminoph en 325 mg tablet 2024-05 00:00: 00 Yes [id number] PAIN 2 tablet 2 TIMES DAILY 2 tablet 2 TIMES DAILY (route: oral) Med Classific ation: Analgesic , Anti-infl ammatory or Antipyret ic aspirin 81 mg tablet 2024-05 00:00: 00 Yes [id number] ANTICOAGULA NT 1 tablet DAILY 1 tablet DAILY (route: oral) Med Classific ation: Hematolog ical Agents ipratropium 0.5 mg-albutero l 3 mg (2.5 mg base)/3 mL nebulizatio n soln 2024-05 00:00: 00 Yes [id number] COPD 3 mL EVERY 6 HOURS 3 mL EVERY 6 HOURS (route: inhalation ) Med Classific ation: Respirato ry Therapy Agents Lanoxin 62.5 mcg (0.0625 mg) tablet 2024-05 00:00: 00 Yes [id number] CHF 1 tablet DAILY 1 tablet DAILY (route: oral) Med Classific ation: Cardiovas cular Therapy Agents Lasix 20 mg tablet 2024-05 00:00: 00 Yes [id number] CHF 1 tablet DAILY 1 tablet DAILY (route: oral) Med Classific ation: Cardiovas cular Therapy Agents Toprol XL 25 mg tablet,exte nded release 2024-05 00:00: 00 Yes [id number] BP 25 mg DAILY 25 mg DAILY [...] SYSTEM MANAGEMENT; RN TO ASSESS AND TEACH, LACE ROLLER/PLATE FITTER TO OBSERVE AND TEACH RELATED TO ALTERED RESPIRATORY STATUS TO MINIMIZE COMPLICATIONS AND REDUCE HOSPITALIZATION. [code = SN 1WK9 PT 1WK1 OT EFFECTIVE 02/10/2025K1 RESPIRATORY SYSTEM MANAGEMENT; RN TO ASSESS AND TEACH, LACE ROLLER/PLATE FITTER TO OBSERVE AND TEACH RELATED TO ALTERED RESPIRATORY STATUS TO MINIMIZE COMPLICATIONS AND REDUCE HOSPITALIZATION.] Future Scheduled Test TRACHEOSTO MY CARE MANAGEMENT; RN/LACE ROLLER/PLATE FITTER TO INSTRUCT PATIENT/CAREGIVER ON CARE AND MANAGEMENT OF TRACHEOSTOMY. RN/ LACE ROLLER/PLATE FITTER TO PROVIDE SKILLED TEACHING ON TRACH COLLAR SUCTIONING PRN WITH 14 FR SUCTION CATHETER PER PATIENT TRACH CARE WITH INNER CANNULA: REMOVE INNER CANNULA, CLEANSE WITH NORMAL SALINE AND OR STERILE WATER AND REINSERT NON-DISPOSABLE CANNULA SIZE OF INNER CANNULA 5 BROOKS [code = TRACHEOSTOMY CARE MANAGEMENT; RN/LACE ROLLER/PLATE FITTER TO INSTRUCT PATIENT/CAREGIVER ON CARE AND MANAGEMENT OF TRACHEOSTOMY. RN/ LACE ROLLER/PLATE FITTER TO PROVIDE SKILLED TEACHING ON TRACH COLLAR SUCTIONING PRN WITH 14 FR SUCTION CATHETER PER PATIENT TRACH CARE WITH INNER CANNULA: REMOVE INNER CANNULA, CLEANSE WITH NORMAL SALINE AND OR STERILE WATER AND REINSERT NON-DISPOSABLE CANNULA SIZE OF INNER CANNULA 5 BROOKS] Future Scheduled Test FALL REDUC TION MANAGEMENT; RN TO ASSESS AND OBSERVE, LACE ROLLER/PLATE FITTER TO OBSERVE FALL RISK FACTORS AND EDUCATE PATIENT/CAREGIVER ON STRATEGIES TO MINIMIZE THE RISK OF FALLING. [code = FALL REDUCTION MANAGEMENT; RN TO ASSESS AND OBSERVE, LACE ROLLER/PLATE FITTER TO OBSERVE FALL RISK FACTORS AND EDUCATE PATIENT/CAREGIVER ON STRATEGIES TO MINIMIZE THE RISK OF FALLING.] Future Scheduled Test ANEMIA MAN AGEMENT; RN TO ASSESS AND TEACH, PLATE FITTER/LACE ROLLER TO OBSERVE AND TEACH AND PROVIDE EDUCATION ON ANEMIA. [code = ANEMIA MANAGEMENT; RN TO ASSESS AND TEACH, PLATE FITTER/LACE ROLLER TO OBSERVE AND TEACH AND PROVIDE EDUCATION ON ANEMIA.] Future Scheduled Test RN TO OBSE RVE, ASSESS, EVALUATE, AND DEVELOP AN INDIVIDUALIZED PLAN OF CARE. AGENCY MAY ACCEPT ORDERS FROM CONSULTING PHYSICIANS RN TO OBSERVE AND ASSESS, LACE ROLLER/PLATE FITTER TO OBSERVE FOR RISK FOR FALLS AND INSTRUCT IN FALL PREVENTION, HOME SAFETY, MEDICATION MANAGEMENT, INFECTION PREVENTION, AND NUTRITION MANAGEMENT. RN/LACE ROLLER/PLATE FITTER NURSE MAY PERFORM O2 SATURATION LEVEL ON ADMISSION AND PRN FOR RN TO ASSESS/LACE ROLLER TO OBSERVE PATIENT, WITH NOTIFICATION TO THE PHYSICIAN IF SATURATION IS 90% IN THE ABSENCE OF MORE SPECIFIC PARAMETERS FROM THE PHYSICIAN. AGENCY MAY PERFORM A RESUMPTION OF CARE VISIT FOLLOWING ANY HOSPITAL ADMISSION. RN/LACE ROLLER/PLATE FITTER TO MONITOR CO-MORBID CONDITIONS LISTED ON THE PLAN OF CARE AND ANY NEW CONDITIONS THAT PRESENT THEMSELVES DURING THIS EPISODE TO IDENTIFY CHANGES AND INTERVENE TO MINIMIZE COMPLICATIONS. [code = RN TO OBSERVE, ASSESS, EVALUATE, AND DEVELOP AN INDIVIDUALIZED PLAN OF CARE. AGENCY MAY ACCEPT ORDERS FROM CONSULTING PHYSICIANS RN TO OBSERVE AND ASSESS, LACE ROLLER/PLATE FITTER TO OBSERVE FOR RISK FOR FALLS AND INSTRUCT IN FALL PREVENTION, HOME SAFETY, MEDICATION MANAGEMENT, INFECTION PREVENTION, AND NUTRITION MANAGEMENT. RN/LACE ROLLER/PLATE FITTER NURSE MAY PERFORM O2 SATURATION LEVEL ON ADMISSION AND PRN FOR RN TO ASSESS/LACE ROLLER TO OBSERVE PATIENT, WITH NOTIFICATION TO THE PHYSICIAN IF SATURATION IS 90% IN THE ABSENCE OF MORE SPECIFIC PARAMETERS FROM THE PHYSICIAN. AGENCY MAY PERFORM A RESUMPTION OF CARE VISIT FOLLOWING ANY HOSPITAL ADMISSION. RN/LACE ROLLER/PLATE FITTER TO MONITOR CO-MORBID CONDITIONS LISTED ON THE PLAN OF CARE AND ANY NEW CONDITIONS THAT PRESENT THEMSELVES DURING THIS EPISODE TO IDENTIFY CHANGES AND INTERVENE TO MINIMIZE COMPLICATIONS.] Future Scheduled Test PAIN MANAG EMENT; RN TO ASSESS AND TEACH, PLATE FITTER/LACE ROLLER TO OBSERVE AND TEACH AND PROVIDE EDUCATION ON PAIN MANAGEMENT TECHNIQUES. [code = PAIN MANAGEMENT; RN TO ASSESS AND TEACH, PLATE FITTER/LACE ROLLER TO OBSERVE AND TEACH AND PROVIDE EDUCATION ON PAIN MANAGEMENT TECHNIQUES.] Future Scheduled Test RISK FOR H OSPITALIZATION; RN TO ASSESS/TEACH, PLATE FITTER/LACE ROLLER TO OBSERVE/TEACH PATIENT/CAREGIVER ON RISK FOR HOSPITALIZATION/EMERGENCY ROOM VISITS, TEACH SIGNS AND SYMPTOMS THAT PUT PATIENT AT RISK, WHEN TO NOTIFY NURSE/PHYSICIAN OF COMPLICATIONS/DECLINE, AND WHEN TO CALL 911. [code = RISK FOR HOSPITALIZATION; RN TO ASSESS/TEACH, PLATE FITTER/LACE ROLLER TO OBSERVE/TEACH PATIENT/CAREGIVER ON RISK FOR HOSPITALIZATION/EMERGENCY ROOM VISITS, TEACH SIGNS AND SYMPTOMS THAT PUT PATIENT AT RISK, WHEN TO NOTIFY NURSE/PHYSICIAN OF COMPLICATIONS/DECLINE, AND WHEN TO CALL 911.] Future Scheduled Test CARDIOVASC ULAR SYSTEM; RN TO ASSESS/TEACH, LACE ROLLER/PLATE FITTER TO OBSERVE/TEACH RELATED TO ALTERED CARDIOVASCULAR STATUS TO MINIMIZE COMPLICATIONS AND REDUCE HOSPITALIZATION. [code = CARDIOVASCULAR SYSTEM; RN TO ASSESS/TEACH, LACE ROLLER/PLATE FITTER TO OBSERVE/TEACH RELATED TO ALTERED CARDIOVASCULAR STATUS TO MINIMIZE COMPLICATIONS AND REDUCE HOSPITALIZATION.] Future Scheduled Test HYPERTENSI ON MANAGEMENT; RN TO ASSESS AND TEACH, LACE ROLLER/PLATE FITTER TO OBSERVE AND TEACH WARNING SIGNS AND SYMPTOMS TO AVOID HOSPITALIZATION. [code = HYPERTENSION MANAGEMENT; RN TO ASSESS AND TEACH, LACE ROLLER/PLATE FITTER TO OBSERVE AND TEACH WARNING SIGNS AND SYMPTOMS TO AVOID HOSPITALIZATION.] Future Scheduled Test HEART FAIL URE MONITORING RN/PLATE FITTER/LACE ROLLER TO MONITOR PATIENT FOR SIGNS AND SYMPTOMS OF HEART FAILURE EXACERBATION, MONITOR FOR ADHERENCE WITH MEDICATION AND HEART FAILURE MANAGEMENT REGIMEN. [code = HEART FAILURE MONITORING RN/PLATE FITTER/LACE ROLLER TO MONITOR PATIENT FOR SIGNS AND SYMPTOMS OF HEART FAILURE EXACERBATION, MONITOR FOR ADHERENCE WITH MEDICATION AND HEART FAILURE MANAGEMENT REGIMEN.] Future Scheduled Test DIABETES M ONITORING RN/PLATE FITTER/LACE ROLLER TO MONITOR BLOOD SUGAR LOG FOR BLOOD SUGAR READINGS THAT ARE BEING CHECKED BY PATIENT, CAREGIVER NEEDED FOR SIGNS AND SYMPTOMS OF HYPER/HYPOGLYCEMIA. PATIENT THERAPEUTIC BLOOD SUGAR PARAMETERS ARE 70 - 300. REPORT BLOOD SUGARS OUT OF RANGE TO PHYSICIAN. NURSE MAY PERFORM FINGER STICK BLOOD GLUCOSE NEEDED FOR SIGNS AND SYMPTOMS OF HYPO AND HYPERGLYCEMIA. RN/PLATE FITTER/LACE ROLLER TO MONITOR ADHERENCE OF PATIENT/CAREGIVER PERFORMING DIABETIC FOOT CARE AND MAY PERFORM DIABETIC FOOT CARE PRN. RN/PLATE FITTER/LACE ROLLER TO MONITOR FOR ADHERENCE TO DIABETIC SELF-CARE AND MANAGEMENT INCLUDING MEDICATIONS. [code = DIABETES MONITORING RN/PLATE FITTER/LACE ROLLER TO MONITOR BLOOD SUGAR LOG FOR BLOOD SUGAR READINGS THAT ARE BEING CHECKED BY PATIENT, CAREGIVER NEEDED FOR SIGNS AND SYMPTOMS OF HYPER/HYPOGLYCEMIA. PATIENT THERAPEUTIC BLOOD SUGAR PARAMETERS ARE 70 - 300. REPORT BLOOD SUGARS OUT OF RANGE TO PHYSICIAN. NURSE MAY PERFORM FINGER STICK BLOOD GLUCOSE NEEDED FOR SIGNS AND SYMPTOMS OF HYPO AND HYPERGLYCEMIA. RN/PLATE FITTER/LACE ROLLER TO MONITOR ADHERENCE OF PATIENT/CAREGIVER PERFORMING DIABETIC FOOT CARE AND MAY PERFORM DIABETIC FOOT CARE PRN. RN/PLATE FITTER/LACE ROLLER TO MONITOR FOR ADHERENCE TO DIABETIC SELF-CARE AND MANAGEMENT INCLUDING MEDICATIONS.] Future Scheduled Test HYPOTENSIO N MANAGEMENT; RN TO ASSESS AND TEACH/ LACE ROLLER /PLATE FITTER TO OBSERVE AND TEACH WARNING SIGNS AND SYMPTOMS TO AVOID HOSPITALIZATION. [code = HYPOTENSION MANAGEMENT; RN TO ASSESS AND TEACH/ LACE ROLLER /PLATE FITTER TO OBSERVE AND TEACH WARNING SIGNS AND SYMPTOMS TO AVOID HOSPITALIZATION.] Future Scheduled Test ARRHYTHMIA MANAGEMENT; RN TO ASSESS AND TEACH, LACE ROLLER/PLATE FITTER TO OBSERVE AND TEACH WARNING SIGNS AND SYMPTOMS TO AVOID HOSPITALIZATION. [code = ARRHYTHMIA MANAGEMENT; RN TO ASSESS AND TEACH, LACE ROLLER/PLATE FITTER TO OBSERVE AND TEACH WARNING SIGNS AND SYMPTOMS TO AVOID HOSPITALIZATION.] Future Scheduled Test MEDICATION MANAGEMENT; RN/LACE ROLLER/PLATE FITTER TO REVIEW MEDICATIONS FOR INTERACTIONS, EFFECTIVENESS OF DRUG THERAPY, AND SIGNS/SYMPTOMS OF ADVERSE REACTIONS. MAY INSTRUCT AND REINFORCE MEDICATION TEACHING RELATED TO THE USE OF MEDICATIONS, DOSAGE, FREQUENCY, PURPOSE, SIDE EFFECTS, AND TO REPORT COMPLICATIONS. [code = MEDICATION MANAGEMENT; RN/LACE ROLLER/PLATE FITTER TO REVIEW MEDICATIONS FOR INTERACTIONS, EFFECTIVENESS OF [...] EVAL UATE, OBSERVE / ASSESS, AND MONITOR, EPIC BEACON ANALYST TO OBSERVE AND MONITOR, PROVIDE SKILLED THERAPEUTIC INTERVENTION, ACTIVITY, EDUCATION, AND TRAINING TO ADDRESS GEN. WEAKNESS, POOR OVERALL ACTIVITY TOLERANCE, AND FUNCTIONAL LIMITATIONS IMPACTING SAFETY AND INDEPENDENCE. BED MOBILITY (PT/EPIC BEACON ANALYST) PT/EPIC BEACON ANALYST TO PROVIDE GAIT TRAINING FOR IMPROVED MOBILITY AND /OR TO NORMALIZE GAIT PATTERN THERAPEUTIC EXERCISES AND ESTABLISHING A HOME EXERCISE PROGRAM (PT/EPIC BEACON ANALYST) PT/EPIC BEACON ANALYST TO PROVIDE STAIR TRAINING PT / EPIC BEACON ANALYST TO MONITOR AND EDUCATE ON OXYGEN SATURATION DURING ADLS/IADLS, NOTIFY PHYSICIAN AND/OR THE RN CLINICAL MANUFACTURING SR ENGINEER FOR PHYSICIAN NOTIFICATION AND IF O2 SATS BELOW PHYSICIAN ORDERED PARAMETERS AFTER 10 MIN OF REST PT / EPIC BEACON ANALYST TO OBSERVE FOR EARLY SIGNS AND SYMPTOMS OF DEPRESSION OR DEPRESSION GETTING WORSE AND TO EDUCATE ON HOW TO FIND HELP. PT / EPIC BEACON ANALYST MAY EDUCATE ON PAIN MANAGEMENT CLINICALLY INDICATED, INCLUDING NON-PHARMACOLOGICAL PAIN REDUCTION TECHNIQUES PT / EPIC BEACON ANALYST TO MONITOR FOR HYPO/HYPERGLYCEMIA AND CONDUCT ROUTINE FOOT INSPECTIONS. RECORD PATIENT REPORTED BLOOD SUGAR LEVELS AND NOTIFY PHYSICIAN AND/OR THE RN CLINICAL MANUFACTURING SR ENGINEER FOR PHYSICIAN NOTIFICATION IF BLOOD SUGAR LEVELS ARE OUTSIDE ORDERED PARAMETERS. TEACH PATIENT/CAREGIVER ON DAILY FOOT INSPECTIONS PT / EPIC BEACON ANALYST TO INSTRUCT PATIENT/CAREGIVER ON RISK FOR HOSPITALIZATION/EMERGENCY ROOM VISITS, TEACH SIGNS AND SYMPTOMS THAT PUT PATIENT AT RISK, WHEN TO NOTIFY NURSE/PHYSICIAN OF COMPLICATIONS/DECLINE, AND WHEN TO CALL 911. PT/EPIC BEACON ANALYST TO EDUCATE ON ARTHRITIS SELF-MANAGEMENT PT / EPIC BEACON ANALYST TO EDUCATE ON HEART FAILURE SELF-MANAGEMENT PT / EPIC BEACON ANALYST TO EDUCATE ON HYPERTENSION SELF-MANAGEMENT PT TO ASSESS / EPIC BEACON ANALYST TO MONITOR CARDIO/RESPIRATORY SYSTEM; AND NOTIFY THE PHYSICIAN AND/OR THE RN CLINICAL MANUFACTURING SR ENGINEER FOR PHYSICIAN NOTIFICATION FOR EARLY SIGNS AND SYMPTOMS OF EXACERBATION OR DETERIORATION. PT / EPIC BEACON ANALYST TO EDUCATE ON ATRIAL FIBRILLATION SELF-MANAGEMENT. PT / EPIC BEACON ANALYST TO EDUCATE ON PNEUMONIA / ASPIRATION PNEUMONIA SELF-MANAGEMENT. PT/EPIC BEACON ANALYST TO IDENTIFY FALL RISK FACTORS; EDUCATE THE PATIENT/CAREGIVER ON WAYS TO REDUCE FALL RISK FACTORS AND ESTABLISH HOME EXERCISE PROGRAM TO MINIMIZE FALL RISK. MAY TEACH THE PATIENT FLOOR RECOVERY WHEN CLINICALLY APPROPRIATE [code = PT TO EVALUATE, OBSERVE / ASSESS, AND MONITOR, EPIC BEACON ANALYST TO OBSERVE AND MONITOR, PROVIDE SKILLED THERAPEUTIC INTERVENTION, ACTIVITY, EDUCATION, AND TRAINING TO ADDRESS GEN. WEAKNESS, POOR OVERALL ACTIVITY TOLERANCE, AND FUNCTIONAL LIMITATIONS IMPACTING SAFETY AND INDEPENDENCE. BED MOBILITY (PT/EPIC BEACON ANALYST) PT/EPIC BEACON ANALYST TO PROVIDE GAIT TRAINING FOR IMPROVED MOBILITY AND /OR TO NORMALIZE GAIT PATTERN THERAPEUTIC EXERCISES AND ESTABLISHING A HOME EXERCISE PROGRAM (PT/EPIC BEACON ANALYST) PT/EPIC BEACON ANALYST TO PROVIDE STAIR TRAINING PT / EPIC BEACON ANALYST TO MONITOR AND EDUCATE ON OXYGEN SATURATION DURING ADLS/IADLS, NOTIFY PHYSICIAN AND/OR THE RN CLINICAL MANUFACTURING SR ENGINEER FOR PHYSICIAN NOTIFICATION AND IF O2 SATS BELOW PHYSICIAN ORDERED PARAMETERS AFTER 10 MIN OF REST PT / EPIC BEACON ANALYST TO OBSERVE FOR EARLY SIGNS AND SYMPTOMS OF DEPRESSION OR DEPRESSION GETTING WORSE AND TO EDUCATE ON HOW TO FIND HELP. PT / EPIC BEACON ANALYST MAY EDUCATE ON PAIN MANAGEMENT CLINICALLY INDICATED, INCLUDING NON-PHARMACOLOGICAL PAIN REDUCTION TECHNIQUES PT / EPIC BEACON ANALYST TO MONITOR FOR HYPO/HYPERGLYCEMIA AND CONDUCT ROUTINE FOOT INSPECTIONS. RECORD PATIENT REPORTED BLOOD SUGAR LEVELS AND NOTIFY PHYSICIAN AND/OR THE RN CLINICAL MANUFACTURING SR ENGINEER FOR PHYSICIAN NOTIFICATION IF BLOOD SUGAR LEVELS ARE OUTSIDE ORDERED PARAMETERS. TEACH PATIENT/CAREGIVER ON DAILY FOOT INSPECTIONS PT / EPIC BEACON ANALYST TO INSTRUCT PATIENT/CAREGIVER ON RISK FOR HOSPITALIZATION/EMERGENCY ROOM VISITS, TEACH SIGNS AND SYMPTOMS THAT PUT PATIENT AT RISK, WHEN TO NOTIFY NURSE/PHYSICIAN OF COMPLICATIONS/DECLINE, AND WHEN TO CALL 911. PT/EPIC BEACON ANALYST TO EDUCATE ON ARTHRITIS SELF-MANAGEMENT PT / EPIC BEACON ANALYST TO EDUCATE ON HEART FAILURE SELF-MANAGEMENT PT / EPIC BEACON ANALYST TO EDUCATE ON HYPERTENSION SELF-MANAGEMENT PT TO ASSESS / EPIC BEACON ANALYST TO MONITOR CARDIO/RESPIRATORY SYSTEM; AND NOTIFY THE PHYSICIAN AND/OR THE RN CLINICAL MANUFACTURING SR ENGINEER FOR PHYSICIAN NOTIFICATION FOR EARLY SIGNS AND SYMPTOMS OF EXACERBATION OR DETERIORATION. PT / EPIC BEACON ANALYST TO EDUCATE ON ATRIAL FIBRILLATION SELF-MANAGEMENT. PT / EPIC BEACON ANALYST TO EDUCATE ON PNEUMONIA / ASPIRATION PNEUMONIA SELF-MANAGEMENT. PT/EPIC BEACON ANALYST TO IDENTIFY FALL RISK FACTORS; EDUCATE THE PATIENT/CAREGIVER ON WAYS TO REDUCE FALL RISK FACTORS AND ESTABLISH HOME EXERCISE PROGRAM TO MINIMIZE FALL RISK. MAY TEACH THE PATIENT FLOOR RECOVERY WHEN CLINICALLY APPROPRIATE] Future Scheduled Test AGENCY MAY PERFORM A RESUMPTION OF CARE VISIT FOLLOWING ANY HOSPITAL ADMISSION. OT TO EVALUATE, OBSERVE / ASSESS, AND MONITOR, SENIOR MOBILE DEVELOPER TO OBSERVE AND MONITOR, PROVIDE SKILLED THERAPEUTIC INTERVENTION, ACTIVITY, EDUCATION, AND TRAINING TO ADDRESS SAFETY AND INDEPENDENCE OF ADLS AND FUNCTIONAL TRANSFERS IN HOME ENVIRONMENT. ACTIVITIES OF DAILY LIVING (OT/MARIANNE) THERAPEUTIC EXERCISE (OT/SENIOR MOBILE DEVELOPER) ENERGY CONSERVATION/ACTIVITY DEMAND (OT/SENIOR MOBILE DEVELOPER) OT/SENIOR MOBILE DEVELOPER TO MONITOR AND EDUCATE ON OXYGEN SATURATION DURING ADLS/IADLS, NOTIFY PHYSICIAN AND/OR THE RN CLINICAL MANUFACTURING SR ENGINEER FOR PHYSICIAN NOTIFICATION AND IF O2 SATS BELOW 90% AFTER 10 MIN OF REST. OT / SENIOR MOBILE DEVELOPER TO IDENTIFY FALL RISK FACTORS; EDUCATE THE PATIENT/CAREGIVER ON WAYS TO REDUCE FALL RISK FACTORS AND ESTABLISH HOME EXERCISE PROGRAM TO MINIMIZE FALL RISK. MAY TEACH THE PATIENT FLOOR RECOVERY WHEN CLINICALLY APPROPRIATE. OT/SENIOR MOBILE DEVELOPER TO EDUCATE ON HYPERTENSION SELF-MANAGEMENT OT/MARIANNE TO EDUCATE ON ATRIAL FIBRILLATION SELF-MANAGEMENT. [code = AGENCY MAY PERFORM A RESUMPTION OF CARE VISIT FOLLOWING ANY HOSPITAL ADMISSION. OT TO EVALUATE, OBSERVE / ASSESS, AND MONITOR, SENIOR MOBILE DEVELOPER TO OBSERVE AND MONITOR, PROVIDE SKILLED THERAPEUTIC INTERVENTION, ACTIVITY, EDUCATION, AND TRAINING TO ADDRESS SAFETY AND INDEPENDENCE OF ADLS AND FUNCTIONAL TRANSFERS IN HOME ENVIRONMENT. ACTIVITIES OF DAILY LIVING (OT/MARIANNE) THERAPEUTIC EXERCISE (OT/SENIOR MOBILE DEVELOPER) ENERGY CONSERVATION/ACTIVITY DEMAND (OT/MARIANNE) OT/SENIOR MOBILE DEVELOPER TO MONITOR AND EDUCATE ON OXYGEN SATURATION DURING ADLS/IADLS, NOTIFY PHYSICIAN AND/OR THE RN CLINICAL MANUFACTURING SR ENGINEER FOR PHYSICIAN NOTIFICATION AND IF O2 SATS BELOW 90% AFTER 10 MIN OF REST. OT / MARIANNE TO IDENTIFY FALL RISK FACTORS; EDUCATE THE PATIENT/CAREGIVER ON WAYS TO REDUCE FALL RISK FACTORS AND ESTABLISH HOME EXERCISE PROGRAM TO MINIMIZE FALL RISK. MAY TEACH THE PATIENT FLOOR RECOVERY WHEN CLINICALLY APPROPRIATE. OT/SENIOR MOBILE DEVELOPER TO EDUCATE ON HYPERTENSION SELF-MANAGEMENT OT/MARIANNE TO [...] OF SKIN INTEGRITY ISSUES FROM [place] WITHIN 2 WKS. PT STG: PATIENT WILL [...] TO SAFELY NEGOTIATE STAIRS FROM [place] WITH 2 STEPS W/O HANDRAIL VIA FRONT [...] End Date/Time Encounter Type Admission Type Attending [facility] Care Department Encounter ID Discharge Date Discharge Status Discharge Condition Discharge Reason Percent Goals Met 2025-02-07 00:00:00 2025-04-07 00:00:00 Outpatient NEW ADMISSION [facility] [id number]
--- OUTSIDE RECORDS SUMMARY | 2025-04-06 18:00 | XMS_ITS | Clinical Summary ---
Author Organization Unknown Care Team Providers Care Engine Room Operator Name Role Phone DIGNA ARIEL, ESTRELLA Unavailable Unava dinora STOKES RN, FRANKIE Unavailable Unavailabl e KARI PT, DIDI Unavailable Unavailable NAT DRAMATIC TEACHER, GAUDENCIO Unavailable Unavailabl e RADHA OT, ROLANDO Unavailable Unavailable JOANNE STEVEN, HATTIE Unavailable Unavailable Payers Payer Name Policy Type Policy Number Effective Date Expira tion Date MEDICARE.[facility] [id number] Problems Condition Name Condition Details Condition Category Status Onset Date Resolution Date Last Treatment Date Treating Clinician Comments 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: 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 02-07 [...] OF PNEUMONIA (RECURRENT) Active 02-07 00:00: 00 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 Active 02-07 [...] 80 mg tablet 02-07 00:00: 00 Yes [id number] CHOLESTEROL 1 tablet DAILY 1 tablet DAILY (route: oral) Med Classific ation: Cardiovas cular Therapy Agents digoxin 125 mcg (0.125 mg) tablet 02-07 00:00: 00 02-21 23:59 :00 No [id number] HEART RHYTHM 1 tablet DAILY 1 tablet DAILY (route: oral) Med Classific ation: Cardiovas cular Therapy Agents escitalopra m 10 mg tablet 02-07 00:00: 00 Yes [id number] MOOD 1 tablet DAILY 1 tablet DAILY (route: oral) Med Classific ation: Central Nervous System Agents ezetimibe 10 mg tablet 02-07 00:00: 00 Yes [id number] CHOLESTEROL 1 tablet DAILY 1 tablet DAILY (route: oral) Med Classific ation: Cardiovas cular Therapy Agents metoprolol succinate ER 25 mg tablet,exte nded release 24 hr 02-07 00:00: 00 02-21 23:59 :00 No [id number] BLOOD PRESSURE 0.5 tablet DAILY 0.5 tablet DAILY (route: oral) Med Classific ation: Cardiovas cular Therapy Agents pantoprazol e 40 mg tablet,joão yed release 02-07 00:00: 00 02-21 23:59 :00 No [id number] STOMACH ACID 1 tablet DAILY 1 tablet DAILY (route: oral) Med Classific ation: Gastroint estinal Therapy Agents prednisone 5 mg tablet 02-07 00:00: 00 Yes [id number] ADRENAL INSUFFICIEN CY 1 tablet DAILY 1 tablet DAILY (route: oral) Med Classific ation: Endocrine spironolact one 25 mg tablet 02-07 00:00: 00 Yes [id number] FLUID RETENTION 0.5 tablet DAILY 0.5 tablet DAILY (route: oral) Med Classific ation: Cardiovas cular Therapy Agents tamsulosin 0.4 mg capsule 02-07 00:00: 00 02-21 23:59 :00 No [id number] URINARY HEALTH 1 capsule DAILY 1 capsule DAILY (route: oral) Med Classific ation: Genitouri nary Therapy acetaminoph en 325 mg tablet 2024-05 00:00: 00 Yes [id number] PAIN 2 tablet 2 TIMES DAILY 2 tablet 2 TIMES DAILY (route: oral) Med Classific ation: Analgesic , Anti-infl ammatory or Antipyret ic aspirin 81 mg tablet 2024-05 00:00: 00 Yes [id number] ANTICOAGULA NT 1 tablet DAILY 1 tablet DAILY (route: oral) Med Classific ation: Hematolog ical Agents ipratropium 0.5 mg-albutero l 3 mg (2.5 mg base)/3 mL nebulizatio n soln 2024-05 00:00: 00 Yes [id number] COPD 3 mL EVERY 6 HOURS 3 mL EVERY 6 HOURS (route: inhalation ) Med Classific ation: Respirato ry Therapy Agents Lanoxin 62.5 mcg (0.0625 mg) tablet 2024-05 00:00: 00 Yes [id number] CHF 1 tablet DAILY 1 tablet DAILY (route: oral) Med Classific ation: Cardiovas cular Therapy Agents Lasix 20 mg tablet 2024-05 00:00: 00 Yes [id number] CHF 1 tablet DAILY 1 tablet DAILY (route: oral) Med Classific ation: Cardiovas cular Therapy Agents Toprol XL 25 mg tablet,exte nded release 2024-05 00:00: 00 Yes [id number] BP 25 mg DAILY 25 mg DAILY [...] SYSTEM MANAGEMENT; RN TO ASSESS AND TEACH, FRENCH INSTRUCTOR/GENERATOR MAN TO OBSERVE AND TEACH RELATED TO ALTERED RESPIRATORY STATUS TO MINIMIZE COMPLICATIONS AND REDUCE HOSPITALIZATION. [code = SN 1WK9 PT 1WK1 OT EFFECTIVE 02/10/2025K1 RESPIRATORY SYSTEM MANAGEMENT; RN TO ASSESS AND TEACH, FRENCH INSTRUCTOR/GENERATOR MAN TO OBSERVE AND TEACH RELATED TO ALTERED RESPIRATORY STATUS TO MINIMIZE COMPLICATIONS AND REDUCE HOSPITALIZATION.] Future Scheduled Test TRACHEOSTO MY CARE MANAGEMENT; RN/FRENCH INSTRUCTOR/GENERATOR MAN TO INSTRUCT PATIENT/CAREGIVER ON CARE AND MANAGEMENT OF TRACHEOSTOMY. RN/ FRENCH INSTRUCTOR/GENERATOR MAN TO PROVIDE SKILLED TEACHING ON TRACH COLLAR SUCTIONING PRN WITH 14 FR SUCTION CATHETER PER PATIENT TRACH CARE WITH INNER CANNULA: REMOVE INNER CANNULA, CLEANSE WITH NORMAL SALINE AND OR STERILE WATER AND REINSERT NON-DISPOSABLE CANNULA SIZE OF INNER CANNULA 5 BROOKS [code = TRACHEOSTOMY CARE MANAGEMENT; RN/FRENCH INSTRUCTOR/GENERATOR MAN TO INSTRUCT PATIENT/CAREGIVER ON CARE AND MANAGEMENT OF TRACHEOSTOMY. RN/ FRENCH INSTRUCTOR/GENERATOR MAN TO PROVIDE SKILLED TEACHING ON TRACH COLLAR SUCTIONING PRN WITH 14 FR SUCTION CATHETER PER PATIENT TRACH CARE WITH INNER CANNULA: REMOVE INNER CANNULA, CLEANSE WITH NORMAL SALINE AND OR STERILE WATER AND REINSERT NON-DISPOSABLE CANNULA SIZE OF INNER CANNULA 5 BROOKS] Future Scheduled Test FALL REDUC TION MANAGEMENT; RN TO ASSESS AND OBSERVE, FRENCH INSTRUCTOR/GENERATOR MAN TO OBSERVE FALL RISK FACTORS AND EDUCATE PATIENT/CAREGIVER ON STRATEGIES TO MINIMIZE THE RISK OF FALLING. [code = FALL REDUCTION MANAGEMENT; RN TO ASSESS AND OBSERVE, FRENCH INSTRUCTOR/GENERATOR MAN TO OBSERVE FALL RISK FACTORS AND EDUCATE PATIENT/CAREGIVER ON STRATEGIES TO MINIMIZE THE RISK OF FALLING.] Future Scheduled Test ANEMIA MAN AGEMENT; RN TO ASSESS AND TEACH, GENERATOR MAN/FRENCH INSTRUCTOR TO OBSERVE AND TEACH AND PROVIDE EDUCATION ON ANEMIA. [code = ANEMIA MANAGEMENT; RN TO ASSESS AND TEACH, GENERATOR MAN/FRENCH INSTRUCTOR TO OBSERVE AND TEACH AND PROVIDE EDUCATION ON ANEMIA.] Future Scheduled Test RN TO OBSE RVE, ASSESS, EVALUATE, AND DEVELOP AN INDIVIDUALIZED PLAN OF CARE. AGENCY MAY ACCEPT ORDERS FROM CONSULTING PHYSICIANS RN TO OBSERVE AND ASSESS, FRENCH INSTRUCTOR/GENERATOR MAN TO OBSERVE FOR RISK FOR FALLS AND INSTRUCT IN FALL PREVENTION, HOME SAFETY, MEDICATION MANAGEMENT, INFECTION PREVENTION, AND NUTRITION MANAGEMENT. RN/FRENCH INSTRUCTOR/GENERATOR MAN NURSE MAY PERFORM O2 SATURATION LEVEL ON ADMISSION AND PRN FOR RN TO ASSESS/FRENCH INSTRUCTOR TO OBSERVE PATIENT, WITH NOTIFICATION TO THE PHYSICIAN IF SATURATION IS 90% IN THE ABSENCE OF MORE SPECIFIC PARAMETERS FROM THE PHYSICIAN. AGENCY MAY PERFORM A RESUMPTION OF CARE VISIT FOLLOWING ANY HOSPITAL ADMISSION. RN/FRENCH INSTRUCTOR/GENERATOR MAN TO MONITOR CO-MORBID CONDITIONS LISTED ON THE PLAN OF CARE AND ANY NEW CONDITIONS THAT PRESENT THEMSELVES DURING THIS EPISODE TO IDENTIFY CHANGES AND INTERVENE TO MINIMIZE COMPLICATIONS. [code = RN TO OBSERVE, ASSESS, EVALUATE, AND DEVELOP AN INDIVIDUALIZED PLAN OF CARE. AGENCY MAY ACCEPT ORDERS FROM CONSULTING PHYSICIANS RN TO OBSERVE AND ASSESS, FRENCH INSTRUCTOR/GENERATOR MAN TO OBSERVE FOR RISK FOR FALLS AND INSTRUCT IN FALL PREVENTION, HOME SAFETY, MEDICATION MANAGEMENT, INFECTION PREVENTION, AND NUTRITION MANAGEMENT. RN/FRENCH INSTRUCTOR/GENERATOR MAN NURSE MAY PERFORM O2 SATURATION LEVEL ON ADMISSION AND PRN FOR RN TO ASSESS/FRENCH INSTRUCTOR TO OBSERVE PATIENT, WITH NOTIFICATION TO THE PHYSICIAN IF SATURATION IS 90% IN THE ABSENCE OF MORE SPECIFIC PARAMETERS FROM THE PHYSICIAN. AGENCY MAY PERFORM A RESUMPTION OF CARE VISIT FOLLOWING ANY HOSPITAL ADMISSION. RN/FRENCH INSTRUCTOR/GENERATOR MAN TO MONITOR CO-MORBID CONDITIONS LISTED ON THE PLAN OF CARE AND ANY NEW CONDITIONS THAT PRESENT THEMSELVES DURING THIS EPISODE TO IDENTIFY CHANGES AND INTERVENE TO MINIMIZE COMPLICATIONS.] Future Scheduled Test PAIN MANAG EMENT; RN TO ASSESS AND TEACH, GENERATOR MAN/FRENCH INSTRUCTOR TO OBSERVE AND TEACH AND PROVIDE EDUCATION ON PAIN MANAGEMENT TECHNIQUES. [code = PAIN MANAGEMENT; RN TO ASSESS AND TEACH, GENERATOR MAN/FRENCH INSTRUCTOR TO OBSERVE AND TEACH AND PROVIDE EDUCATION ON PAIN MANAGEMENT TECHNIQUES.] Future Scheduled Test RISK FOR H OSPITALIZATION; RN TO ASSESS/TEACH, GENERATOR MAN/FRENCH INSTRUCTOR TO OBSERVE/TEACH PATIENT/CAREGIVER ON RISK FOR HOSPITALIZATION/EMERGENCY ROOM VISITS, TEACH SIGNS AND SYMPTOMS THAT PUT PATIENT AT RISK, WHEN TO NOTIFY NURSE/PHYSICIAN OF COMPLICATIONS/DECLINE, AND WHEN TO CALL 911. [code = RISK FOR HOSPITALIZATION; RN TO ASSESS/TEACH, GENERATOR MAN/FRENCH INSTRUCTOR TO OBSERVE/TEACH PATIENT/CAREGIVER ON RISK FOR HOSPITALIZATION/EMERGENCY ROOM VISITS, TEACH SIGNS AND SYMPTOMS THAT PUT PATIENT AT RISK, WHEN TO NOTIFY NURSE/PHYSICIAN OF COMPLICATIONS/DECLINE, AND WHEN TO CALL 911.] Future Scheduled Test CARDIOVASC ULAR SYSTEM; RN TO ASSESS/TEACH, FRENCH INSTRUCTOR/GENERATOR MAN TO OBSERVE/TEACH RELATED TO ALTERED CARDIOVASCULAR STATUS TO MINIMIZE COMPLICATIONS AND REDUCE HOSPITALIZATION. [code = CARDIOVASCULAR SYSTEM; RN TO ASSESS/TEACH, FRENCH INSTRUCTOR/GENERATOR MAN TO OBSERVE/TEACH RELATED TO ALTERED CARDIOVASCULAR STATUS TO MINIMIZE COMPLICATIONS AND REDUCE HOSPITALIZATION.] Future Scheduled Test HYPERTENSI ON MANAGEMENT; RN TO ASSESS AND TEACH, FRENCH INSTRUCTOR/GENERATOR MAN TO OBSERVE AND TEACH WARNING SIGNS AND SYMPTOMS TO AVOID HOSPITALIZATION. [code = HYPERTENSION MANAGEMENT; RN TO ASSESS AND TEACH, FRENCH INSTRUCTOR/GENERATOR MAN TO OBSERVE AND TEACH WARNING SIGNS AND SYMPTOMS TO AVOID HOSPITALIZATION.] Future Scheduled Test HEART FAIL URE MONITORING RN/GENERATOR MAN/FRENCH INSTRUCTOR TO MONITOR PATIENT FOR SIGNS AND SYMPTOMS OF HEART FAILURE EXACERBATION, MONITOR FOR ADHERENCE WITH MEDICATION AND HEART FAILURE MANAGEMENT REGIMEN. [code = HEART FAILURE MONITORING RN/GENERATOR MAN/FRENCH INSTRUCTOR TO MONITOR PATIENT FOR SIGNS AND SYMPTOMS OF HEART FAILURE EXACERBATION, MONITOR FOR ADHERENCE WITH MEDICATION AND HEART FAILURE MANAGEMENT REGIMEN.] Future Scheduled Test DIABETES M ONITORING RN/GENERATOR MAN/FRENCH INSTRUCTOR TO MONITOR BLOOD SUGAR LOG FOR BLOOD SUGAR READINGS THAT ARE BEING CHECKED BY PATIENT, CAREGIVER NEEDED FOR SIGNS AND SYMPTOMS OF HYPER/HYPOGLYCEMIA. PATIENT THERAPEUTIC BLOOD SUGAR PARAMETERS ARE 70 - 300. REPORT BLOOD SUGARS OUT OF RANGE TO PHYSICIAN. NURSE MAY PERFORM FINGER STICK BLOOD GLUCOSE NEEDED FOR SIGNS AND SYMPTOMS OF HYPO AND HYPERGLYCEMIA. RN/GENERATOR MAN/FRENCH INSTRUCTOR TO MONITOR ADHERENCE OF PATIENT/CAREGIVER PERFORMING DIABETIC FOOT CARE AND MAY PERFORM DIABETIC FOOT CARE PRN. RN/GENERATOR MAN/FRENCH INSTRUCTOR TO MONITOR FOR ADHERENCE TO DIABETIC SELF-CARE AND MANAGEMENT INCLUDING MEDICATIONS. [code = DIABETES MONITORING RN/GENERATOR MAN/FRENCH INSTRUCTOR TO MONITOR BLOOD SUGAR LOG FOR BLOOD SUGAR READINGS THAT ARE BEING CHECKED BY PATIENT, CAREGIVER NEEDED FOR SIGNS AND SYMPTOMS OF HYPER/HYPOGLYCEMIA. PATIENT THERAPEUTIC BLOOD SUGAR PARAMETERS ARE 70 - 300. REPORT BLOOD SUGARS OUT OF RANGE TO PHYSICIAN. NURSE MAY PERFORM FINGER STICK BLOOD GLUCOSE NEEDED FOR SIGNS AND SYMPTOMS OF HYPO AND HYPERGLYCEMIA. RN/GENERATOR MAN/FRENCH INSTRUCTOR TO MONITOR ADHERENCE OF PATIENT/CAREGIVER PERFORMING DIABETIC FOOT CARE AND MAY PERFORM DIABETIC FOOT CARE PRN. RN/GENERATOR MAN/FRENCH INSTRUCTOR TO MONITOR FOR ADHERENCE TO DIABETIC SELF-CARE AND MANAGEMENT INCLUDING MEDICATIONS.] Future Scheduled Test HYPOTENSIO N MANAGEMENT; RN TO ASSESS AND TEACH/ FRENCH INSTRUCTOR /GENERATOR MAN TO OBSERVE AND TEACH WARNING SIGNS AND SYMPTOMS TO AVOID HOSPITALIZATION. [code = HYPOTENSION MANAGEMENT; RN TO ASSESS AND TEACH/ FRENCH INSTRUCTOR /GENERATOR MAN TO OBSERVE AND TEACH WARNING SIGNS AND SYMPTOMS TO AVOID HOSPITALIZATION.] Future Scheduled Test ARRHYTHMIA MANAGEMENT; RN TO ASSESS AND TEACH, FRENCH INSTRUCTOR/GENERATOR MAN TO OBSERVE AND TEACH WARNING SIGNS AND SYMPTOMS TO AVOID HOSPITALIZATION. [code = ARRHYTHMIA MANAGEMENT; RN TO ASSESS AND TEACH, FRENCH INSTRUCTOR/GENERATOR MAN TO OBSERVE AND TEACH WARNING SIGNS AND SYMPTOMS TO AVOID HOSPITALIZATION.] Future Scheduled Test MEDICATION MANAGEMENT; RN/FRENCH INSTRUCTOR/GENERATOR MAN TO REVIEW MEDICATIONS FOR INTERACTIONS, EFFECTIVENESS OF DRUG THERAPY, AND SIGNS/SYMPTOMS OF ADVERSE REACTIONS. MAY INSTRUCT AND REINFORCE MEDICATION TEACHING RELATED TO THE USE OF MEDICATIONS, DOSAGE, FREQUENCY, PURPOSE, SIDE EFFECTS, AND TO REPORT COMPLICATIONS. [code = MEDICATION MANAGEMENT; RN/FRENCH INSTRUCTOR/GENERATOR MAN TO REVIEW MEDICATIONS FOR INTERACTIONS, EFFECTIVENESS OF [...] EVAL UATE, OBSERVE / ASSESS, AND MONITOR, DRAMATIC TEACHER TO OBSERVE AND MONITOR, PROVIDE SKILLED THERAPEUTIC INTERVENTION, ACTIVITY, EDUCATION, AND TRAINING TO ADDRESS GEN. WEAKNESS, POOR OVERALL ACTIVITY TOLERANCE, AND FUNCTIONAL LIMITATIONS IMPACTING SAFETY AND INDEPENDENCE. BED MOBILITY (PT/DRAMATIC TEACHER) PT/DRAMATIC TEACHER TO PROVIDE GAIT TRAINING FOR IMPROVED MOBILITY AND /OR TO NORMALIZE GAIT PATTERN THERAPEUTIC EXERCISES AND ESTABLISHING A HOME EXERCISE PROGRAM (PT/DRAMATIC TEACHER) PT/DRAMATIC TEACHER TO PROVIDE STAIR TRAINING PT / DRAMATIC TEACHER TO MONITOR AND EDUCATE ON OXYGEN SATURATION DURING ADLS/IADLS, NOTIFY PHYSICIAN AND/OR THE RN CLINICAL INCOME TAX EXPERT FOR PHYSICIAN NOTIFICATION AND IF O2 SATS BELOW PHYSICIAN ORDERED PARAMETERS AFTER 10 MIN OF REST PT / DRAMATIC TEACHER TO OBSERVE FOR EARLY SIGNS AND SYMPTOMS OF DEPRESSION OR DEPRESSION GETTING WORSE AND TO EDUCATE ON HOW TO FIND HELP. PT / DRAMATIC TEACHER MAY EDUCATE ON PAIN MANAGEMENT CLINICALLY INDICATED, INCLUDING NON-PHARMACOLOGICAL PAIN REDUCTION TECHNIQUES PT / DRAMATIC TEACHER TO MONITOR FOR HYPO/HYPERGLYCEMIA AND CONDUCT ROUTINE FOOT INSPECTIONS. RECORD PATIENT REPORTED BLOOD SUGAR LEVELS AND NOTIFY PHYSICIAN AND/OR THE RN CLINICAL INCOME TAX EXPERT FOR PHYSICIAN NOTIFICATION IF BLOOD SUGAR LEVELS ARE OUTSIDE ORDERED PARAMETERS. TEACH PATIENT/CAREGIVER ON DAILY FOOT INSPECTIONS PT / DRAMATIC TEACHER TO INSTRUCT PATIENT/CAREGIVER ON RISK FOR HOSPITALIZATION/EMERGENCY ROOM VISITS, TEACH SIGNS AND SYMPTOMS THAT PUT PATIENT AT RISK, WHEN TO NOTIFY NURSE/PHYSICIAN OF COMPLICATIONS/DECLINE, AND WHEN TO CALL 911. PT/DRAMATIC TEACHER TO EDUCATE ON ARTHRITIS SELF-MANAGEMENT PT / DRAMATIC TEACHER TO EDUCATE ON HEART FAILURE SELF-MANAGEMENT PT / DRAMATIC TEACHER TO EDUCATE ON HYPERTENSION SELF-MANAGEMENT PT TO ASSESS / DRAMATIC TEACHER TO MONITOR CARDIO/RESPIRATORY SYSTEM; AND NOTIFY THE PHYSICIAN AND/OR THE RN CLINICAL INCOME TAX EXPERT FOR PHYSICIAN NOTIFICATION FOR EARLY SIGNS AND SYMPTOMS OF EXACERBATION OR DETERIORATION. PT / DRAMATIC TEACHER TO EDUCATE ON ATRIAL FIBRILLATION SELF-MANAGEMENT. PT / DRAMATIC TEACHER TO EDUCATE ON PNEUMONIA / ASPIRATION PNEUMONIA SELF-MANAGEMENT. PT/DRAMATIC TEACHER TO IDENTIFY FALL RISK FACTORS; EDUCATE THE PATIENT/CAREGIVER ON WAYS TO REDUCE FALL RISK FACTORS AND ESTABLISH HOME EXERCISE PROGRAM TO MINIMIZE FALL RISK. MAY TEACH THE PATIENT FLOOR RECOVERY WHEN CLINICALLY APPROPRIATE [code = PT TO EVALUATE, OBSERVE / ASSESS, AND MONITOR, DRAMATIC TEACHER TO OBSERVE AND MONITOR, PROVIDE SKILLED THERAPEUTIC INTERVENTION, ACTIVITY, EDUCATION, AND TRAINING TO ADDRESS GEN. WEAKNESS, POOR OVERALL ACTIVITY TOLERANCE, AND FUNCTIONAL LIMITATIONS IMPACTING SAFETY AND INDEPENDENCE. BED MOBILITY (PT/DRAMATIC TEACHER) PT/DRAMATIC TEACHER TO PROVIDE GAIT TRAINING FOR IMPROVED MOBILITY AND /OR TO NORMALIZE GAIT PATTERN THERAPEUTIC EXERCISES AND ESTABLISHING A HOME EXERCISE PROGRAM (PT/DRAMATIC TEACHER) PT/DRAMATIC TEACHER TO PROVIDE STAIR TRAINING PT / DRAMATIC TEACHER TO MONITOR AND EDUCATE ON OXYGEN SATURATION DURING ADLS/IADLS, NOTIFY PHYSICIAN AND/OR THE RN CLINICAL INCOME TAX EXPERT FOR PHYSICIAN NOTIFICATION AND IF O2 SATS BELOW PHYSICIAN ORDERED PARAMETERS AFTER 10 MIN OF REST PT / DRAMATIC TEACHER TO OBSERVE FOR EARLY SIGNS AND SYMPTOMS OF DEPRESSION OR DEPRESSION GETTING WORSE AND TO EDUCATE ON HOW TO FIND HELP. PT / DRAMATIC TEACHER MAY EDUCATE ON PAIN MANAGEMENT CLINICALLY INDICATED, INCLUDING NON-PHARMACOLOGICAL PAIN REDUCTION TECHNIQUES PT / DRAMATIC TEACHER TO MONITOR FOR HYPO/HYPERGLYCEMIA AND CONDUCT ROUTINE FOOT INSPECTIONS. RECORD PATIENT REPORTED BLOOD SUGAR LEVELS AND NOTIFY PHYSICIAN AND/OR THE RN CLINICAL INCOME TAX EXPERT FOR PHYSICIAN NOTIFICATION IF BLOOD SUGAR LEVELS ARE OUTSIDE ORDERED PARAMETERS. TEACH PATIENT/CAREGIVER ON DAILY FOOT INSPECTIONS PT / DRAMATIC TEACHER TO INSTRUCT PATIENT/CAREGIVER ON RISK FOR HOSPITALIZATION/EMERGENCY ROOM VISITS, TEACH SIGNS AND SYMPTOMS THAT PUT PATIENT AT RISK, WHEN TO NOTIFY NURSE/PHYSICIAN OF COMPLICATIONS/DECLINE, AND WHEN TO CALL 911. PT/DRAMATIC TEACHER TO EDUCATE ON ARTHRITIS SELF-MANAGEMENT PT / DRAMATIC TEACHER TO EDUCATE ON HEART FAILURE SELF-MANAGEMENT PT / DRAMATIC TEACHER TO EDUCATE ON HYPERTENSION SELF-MANAGEMENT PT TO ASSESS / DRAMATIC TEACHER TO MONITOR CARDIO/RESPIRATORY SYSTEM; AND NOTIFY THE PHYSICIAN AND/OR THE RN CLINICAL INCOME TAX EXPERT FOR PHYSICIAN NOTIFICATION FOR EARLY SIGNS AND SYMPTOMS OF EXACERBATION OR DETERIORATION. PT / DRAMATIC TEACHER TO EDUCATE ON ATRIAL FIBRILLATION SELF-MANAGEMENT. PT / DRAMATIC TEACHER TO EDUCATE ON PNEUMONIA / ASPIRATION PNEUMONIA SELF-MANAGEMENT. PT/DRAMATIC TEACHER TO IDENTIFY FALL RISK FACTORS; EDUCATE THE PATIENT/CAREGIVER ON WAYS TO REDUCE FALL RISK FACTORS AND ESTABLISH HOME EXERCISE PROGRAM TO MINIMIZE FALL RISK. MAY TEACH THE PATIENT FLOOR RECOVERY WHEN CLINICALLY APPROPRIATE] Future Scheduled Test AGENCY MAY PERFORM A RESUMPTION OF CARE VISIT FOLLOWING ANY HOSPITAL ADMISSION. OT TO EVALUATE, OBSERVE / ASSESS, AND MONITOR, PROFESSOR OF LEGAL STUDIES TO OBSERVE AND MONITOR, PROVIDE SKILLED THERAPEUTIC INTERVENTION, ACTIVITY, EDUCATION, AND TRAINING TO ADDRESS SAFETY AND INDEPENDENCE OF ADLS AND FUNCTIONAL TRANSFERS IN HOME ENVIRONMENT. ACTIVITIES OF DAILY LIVING (OT/MARIANNE) THERAPEUTIC EXERCISE (OT/PROFESSOR OF LEGAL STUDIES) ENERGY CONSERVATION/ACTIVITY DEMAND (OT/PROFESSOR OF LEGAL STUDIES) OT/PROFESSOR OF LEGAL STUDIES TO MONITOR AND EDUCATE ON OXYGEN SATURATION DURING ADLS/IADLS, NOTIFY PHYSICIAN AND/OR THE RN CLINICAL INCOME TAX EXPERT FOR PHYSICIAN NOTIFICATION AND IF O2 SATS BELOW 90% AFTER 10 MIN OF REST. OT / PROFESSOR OF LEGAL STUDIES TO IDENTIFY FALL RISK FACTORS; EDUCATE THE PATIENT/CAREGIVER ON WAYS TO REDUCE FALL RISK FACTORS AND ESTABLISH HOME EXERCISE PROGRAM TO MINIMIZE FALL RISK. MAY TEACH THE PATIENT FLOOR RECOVERY WHEN CLINICALLY APPROPRIATE. OT/PROFESSOR OF LEGAL STUDIES TO EDUCATE ON HYPERTENSION SELF-MANAGEMENT OT/MARIANNE TO EDUCATE ON ATRIAL FIBRILLATION SELF-MANAGEMENT. [code = AGENCY MAY PERFORM A RESUMPTION OF CARE VISIT FOLLOWING ANY HOSPITAL ADMISSION. OT TO EVALUATE, OBSERVE / ASSESS, AND MONITOR, PROFESSOR OF LEGAL STUDIES TO OBSERVE AND MONITOR, PROVIDE SKILLED THERAPEUTIC INTERVENTION, ACTIVITY, EDUCATION, AND TRAINING TO ADDRESS SAFETY AND INDEPENDENCE OF ADLS AND FUNCTIONAL TRANSFERS IN HOME ENVIRONMENT. ACTIVITIES OF DAILY LIVING (OT/MARIANNE) THERAPEUTIC EXERCISE (OT/PROFESSOR OF LEGAL STUDIES) ENERGY CONSERVATION/ACTIVITY DEMAND (OT/MARIANNE) OT/PROFESSOR OF LEGAL STUDIES TO MONITOR AND EDUCATE ON OXYGEN SATURATION DURING ADLS/IADLS, NOTIFY PHYSICIAN AND/OR THE RN CLINICAL INCOME TAX EXPERT FOR PHYSICIAN NOTIFICATION AND IF O2 SATS BELOW 90% AFTER 10 MIN OF REST. OT / MARIANNE TO IDENTIFY FALL RISK FACTORS; EDUCATE THE PATIENT/CAREGIVER ON WAYS TO REDUCE FALL RISK FACTORS AND ESTABLISH HOME EXERCISE PROGRAM TO MINIMIZE FALL RISK. MAY TEACH THE PATIENT FLOOR RECOVERY WHEN CLINICALLY APPROPRIATE. OT/PROFESSOR OF LEGAL STUDIES TO EDUCATE ON HYPERTENSION SELF-MANAGEMENT OT/MARIANNE TO [...] OF SKIN INTEGRITY ISSUES FROM SBA TO SC WITHIN 2 WKS. PT STG: PATIENT WILL [...] TO SAFELY NEGOTIATE STAIRS FROM SBA TO SC WITH 2 STEPS W/O HANDRAIL VIA FRONT [...] End Date/Time Encounter Type Admission Type Attending [facility] Care Department Encounter ID Discharge Date Discharge Status Discharge Condition Discharge Reason Percent Goals Met 2025-02-07 00:00:00 2025-04-07 00:00:00 Outpatient NEW ADMISSION FRANKIE STOK[facility] [id number] 26.42
--- OUTSIDE RECORDS SUMMARY | 2025-04-06 18:00 | XMS_ITS | Clinical Summary ---
Author Organization Unknown Care Team Providers Care It Quality Assurance Analyst Name Role Phone DIGNA ARIEL, ESTRELLA Unavailable Unava dinora STOKES RN, FRANKIE Unavailable Unavailabl e KARI PT, DIDI Unavailable Unavailable NAT PORTER SAMPLE CASE, GAUDENCIO Unavailable Unavailabl e RADHA OT, ROLANDO Unavailable Unavailable JOANNE STEVEN, HATTIE Unavailable Unavailable Payers Payer Name Policy Type Policy Number Effective Date Expira tion Date MEDICARE.[facility] [id number] Problems Condition Name Condition Details Condition Category Status Onset Date Resolution Date Last Treatment Date Treating Clinician Comments 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 02-07 [...] OF PNEUMONIA (RECURRENT) Active 02-07 00:00: 00 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) USE OF SYSTEMIC STEROIDS Active 02-07 [...] 80 mg tablet 02-07 00:00: 00 Yes [id number] CHOLESTEROL 1 tablet DAILY 1 tablet DAILY (route: oral) Med Classific ation: Cardiovas cular Therapy Agents digoxin 125 mcg (0.125 mg) tablet 02-07 00:00: 00 02-21 23:59 :00 No [id number] HEART RHYTHM 1 tablet DAILY 1 tablet DAILY (route: oral) Med Classific ation: Cardiovas cular Therapy Agents escitalopra m 10 mg tablet 02-07 00:00: 00 Yes [id number] MOOD 1 tablet DAILY 1 tablet DAILY (route: oral) Med Classific ation: Central Nervous System Agents ezetimibe 10 mg tablet 02-07 00:00: 00 Yes [id number] CHOLESTEROL 1 tablet DAILY 1 tablet DAILY (route: oral) Med Classific ation: Cardiovas cular Therapy Agents metoprolol succinate ER 25 mg tablet,exte nded release 24 hr 02-07 00:00: 00 02-21 23:59 :00 No [id number] BLOOD PRESSURE 0.5 tablet DAILY 0.5 tablet DAILY (route: oral) Med Classific ation: Cardiovas cular Therapy Agents pantoprazol e 40 mg tablet,joão yed release 02-07 00:00: 00 02-21 23:59 :00 No [id number] STOMACH ACID 1 tablet DAILY 1 tablet DAILY (route: oral) Med Classific ation: Gastroint estinal Therapy Agents prednisone 5 mg tablet 02-07 00:00: 00 Yes [id number] ADRENAL INSUFFICIEN CY 1 tablet DAILY 1 tablet DAILY (route: oral) Med Classific ation: Endocrine spironolact one 25 mg tablet 02-07 00:00: 00 Yes [id number] FLUID RETENTION 0.5 tablet DAILY 0.5 tablet DAILY (route: oral) Med Classific ation: Cardiovas cular Therapy Agents tamsulosin 0.4 mg capsule 02-07 00:00: 00 02-21 23:59 :00 No [id number] URINARY HEALTH 1 capsule DAILY 1 capsule DAILY (route: oral) Med Classific ation: Genitouri nary Therapy acetaminoph en 325 mg tablet 2024-05 00:00: 00 Yes [id number] PAIN 2 tablet 2 TIMES DAILY 2 tablet 2 TIMES DAILY (route: oral) Med Classific ation: Analgesic , Anti-infl ammatory or Antipyret ic aspirin 81 mg tablet 2024-05 00:00: 00 Yes [id number] ANTICOAGULA NT 1 tablet DAILY 1 tablet DAILY (route: oral) Med Classific ation: Hematolog ical Agents ipratropium 0.5 mg-albutero l 3 mg (2.5 mg base)/3 mL nebulizatio n soln 2024-05 00:00: 00 Yes [id number] COPD 3 mL EVERY 6 HOURS 3 mL EVERY 6 HOURS (route: inhalation ) Med Classific ation: Respirato ry Therapy Agents Lanoxin 62.5 mcg (0.0625 mg) tablet 2024-05 00:00: 00 Yes [id number] CHF 1 tablet DAILY 1 tablet DAILY (route: oral) Med Classific ation: Cardiovas cular Therapy Agents Lasix 20 mg tablet 2024-05 00:00: 00 Yes [id number] CHF 1 tablet DAILY 1 tablet DAILY (route: oral) Med Classific ation: Cardiovas cular Therapy Agents Toprol XL 25 mg tablet,exte nded release 2024-05 00:00: 00 Yes [id number] BP 25 mg DAILY 25 mg DAILY [...] SYSTEM MANAGEMENT; RN TO ASSESS AND TEACH, GREEN JOBS TRAINER/WATER SUPERVISOR TO OBSERVE AND TEACH RELATED TO ALTERED RESPIRATORY STATUS TO MINIMIZE COMPLICATIONS AND REDUCE HOSPITALIZATION. [code = SN 1WK9 PT 1WK1 OT EFFECTIVE 02/10/2025K1 RESPIRATORY SYSTEM MANAGEMENT; RN TO ASSESS AND TEACH, GREEN JOBS TRAINER/WATER SUPERVISOR TO OBSERVE AND TEACH RELATED TO ALTERED RESPIRATORY STATUS TO MINIMIZE COMPLICATIONS AND REDUCE HOSPITALIZATION.] Future Scheduled Test TRACHEOSTO MY CARE MANAGEMENT; RN/GREEN JOBS TRAINER/WATER SUPERVISOR TO INSTRUCT PATIENT/CAREGIVER ON CARE AND MANAGEMENT OF TRACHEOSTOMY. RN/ GREEN JOBS TRAINER/WATER SUPERVISOR TO PROVIDE SKILLED TEACHING ON TRACH COLLAR SUCTIONING PRN WITH 14 FR SUCTION CATHETER PER PATIENT TRACH CARE WITH INNER CANNULA: REMOVE INNER CANNULA, CLEANSE WITH NORMAL SALINE AND OR STERILE WATER AND REINSERT NON-DISPOSABLE CANNULA SIZE OF INNER CANNULA 5 BROOKS [code = TRACHEOSTOMY CARE MANAGEMENT; RN/GREEN JOBS TRAINER/WATER SUPERVISOR TO INSTRUCT PATIENT/CAREGIVER ON CARE AND MANAGEMENT OF TRACHEOSTOMY. RN/ GREEN JOBS TRAINER/WATER SUPERVISOR TO PROVIDE SKILLED TEACHING ON TRACH COLLAR SUCTIONING PRN WITH 14 FR SUCTION CATHETER PER PATIENT TRACH CARE WITH INNER CANNULA: REMOVE INNER CANNULA, CLEANSE WITH NORMAL SALINE AND OR STERILE WATER AND REINSERT NON-DISPOSABLE CANNULA SIZE OF INNER CANNULA 5 BROOKS] Future Scheduled Test FALL REDUC TION MANAGEMENT; RN TO ASSESS AND OBSERVE, GREEN JOBS TRAINER/WATER SUPERVISOR TO OBSERVE FALL RISK FACTORS AND EDUCATE PATIENT/CAREGIVER ON STRATEGIES TO MINIMIZE THE RISK OF FALLING. [code = FALL REDUCTION MANAGEMENT; RN TO ASSESS AND OBSERVE, GREEN JOBS TRAINER/WATER SUPERVISOR TO OBSERVE FALL RISK FACTORS AND EDUCATE PATIENT/CAREGIVER ON STRATEGIES TO MINIMIZE THE RISK OF FALLING.] Future Scheduled Test ANEMIA MAN AGEMENT; RN TO ASSESS AND TEACH, WATER SUPERVISOR/GREEN JOBS TRAINER TO OBSERVE AND TEACH AND PROVIDE EDUCATION ON ANEMIA. [code = ANEMIA MANAGEMENT; RN TO ASSESS AND TEACH, WATER SUPERVISOR/GREEN JOBS TRAINER TO OBSERVE AND TEACH AND PROVIDE EDUCATION ON ANEMIA.] Future Scheduled Test RN TO OBSE RVE, ASSESS, EVALUATE, AND DEVELOP AN INDIVIDUALIZED PLAN OF CARE. AGENCY MAY ACCEPT ORDERS FROM CONSULTING PHYSICIANS RN TO OBSERVE AND ASSESS, GREEN JOBS TRAINER/WATER SUPERVISOR TO OBSERVE FOR RISK FOR FALLS AND INSTRUCT IN FALL PREVENTION, HOME SAFETY, MEDICATION MANAGEMENT, INFECTION PREVENTION, AND NUTRITION MANAGEMENT. RN/GREEN JOBS TRAINER/WATER SUPERVISOR NURSE MAY PERFORM O2 SATURATION LEVEL ON ADMISSION AND PRN FOR RN TO ASSESS/GREEN JOBS TRAINER TO OBSERVE PATIENT, WITH NOTIFICATION TO THE PHYSICIAN IF SATURATION IS 90% IN THE ABSENCE OF MORE SPECIFIC PARAMETERS FROM THE PHYSICIAN. AGENCY MAY PERFORM A RESUMPTION OF CARE VISIT FOLLOWING ANY HOSPITAL ADMISSION. RN/GREEN JOBS TRAINER/WATER SUPERVISOR TO MONITOR CO-MORBID CONDITIONS LISTED ON THE PLAN OF CARE AND ANY NEW CONDITIONS THAT PRESENT THEMSELVES DURING THIS EPISODE TO IDENTIFY CHANGES AND INTERVENE TO MINIMIZE COMPLICATIONS. [code = RN TO OBSERVE, ASSESS, EVALUATE, AND DEVELOP AN INDIVIDUALIZED PLAN OF CARE. AGENCY MAY ACCEPT ORDERS FROM CONSULTING PHYSICIANS RN TO OBSERVE AND ASSESS, GREEN JOBS TRAINER/WATER SUPERVISOR TO OBSERVE FOR RISK FOR FALLS AND INSTRUCT IN FALL PREVENTION, HOME SAFETY, MEDICATION MANAGEMENT, INFECTION PREVENTION, AND NUTRITION MANAGEMENT. RN/GREEN JOBS TRAINER/WATER SUPERVISOR NURSE MAY PERFORM O2 SATURATION LEVEL ON ADMISSION AND PRN FOR RN TO ASSESS/GREEN JOBS TRAINER TO OBSERVE PATIENT, WITH NOTIFICATION TO THE PHYSICIAN IF SATURATION IS 90% IN THE ABSENCE OF MORE SPECIFIC PARAMETERS FROM THE PHYSICIAN. AGENCY MAY PERFORM A RESUMPTION OF CARE VISIT FOLLOWING ANY HOSPITAL ADMISSION. RN/GREEN JOBS TRAINER/WATER SUPERVISOR TO MONITOR CO-MORBID CONDITIONS LISTED ON THE PLAN OF CARE AND ANY NEW CONDITIONS THAT PRESENT THEMSELVES DURING THIS EPISODE TO IDENTIFY CHANGES AND INTERVENE TO MINIMIZE COMPLICATIONS.] Future Scheduled Test PAIN MANAG EMENT; RN TO ASSESS AND TEACH, WATER SUPERVISOR/GREEN JOBS TRAINER TO OBSERVE AND TEACH AND PROVIDE EDUCATION ON PAIN MANAGEMENT TECHNIQUES. [code = PAIN MANAGEMENT; RN TO ASSESS AND TEACH, WATER SUPERVISOR/GREEN JOBS TRAINER TO OBSERVE AND TEACH AND PROVIDE EDUCATION ON PAIN MANAGEMENT TECHNIQUES.] Future Scheduled Test RISK FOR H OSPITALIZATION; RN TO ASSESS/TEACH, WATER SUPERVISOR/GREEN JOBS TRAINER TO OBSERVE/TEACH PATIENT/CAREGIVER ON RISK FOR HOSPITALIZATION/EMERGENCY ROOM VISITS, TEACH SIGNS AND SYMPTOMS THAT PUT PATIENT AT RISK, WHEN TO NOTIFY NURSE/PHYSICIAN OF COMPLICATIONS/DECLINE, AND WHEN TO CALL 911. [code = RISK FOR HOSPITALIZATION; RN TO ASSESS/TEACH, WATER SUPERVISOR/GREEN JOBS TRAINER TO OBSERVE/TEACH PATIENT/CAREGIVER ON RISK FOR HOSPITALIZATION/EMERGENCY ROOM VISITS, TEACH SIGNS AND SYMPTOMS THAT PUT PATIENT AT RISK, WHEN TO NOTIFY NURSE/PHYSICIAN OF COMPLICATIONS/DECLINE, AND WHEN TO CALL 911.] Future Scheduled Test CARDIOVASC ULAR SYSTEM; RN TO ASSESS/TEACH, GREEN JOBS TRAINER/WATER SUPERVISOR TO OBSERVE/TEACH RELATED TO ALTERED CARDIOVASCULAR STATUS TO MINIMIZE COMPLICATIONS AND REDUCE HOSPITALIZATION. [code = CARDIOVASCULAR SYSTEM; RN TO ASSESS/TEACH, GREEN JOBS TRAINER/WATER SUPERVISOR TO OBSERVE/TEACH RELATED TO ALTERED CARDIOVASCULAR STATUS TO MINIMIZE COMPLICATIONS AND REDUCE HOSPITALIZATION.] Future Scheduled Test HYPERTENSI ON MANAGEMENT; RN TO ASSESS AND TEACH, GREEN JOBS TRAINER/WATER SUPERVISOR TO OBSERVE AND TEACH WARNING SIGNS AND SYMPTOMS TO AVOID HOSPITALIZATION. [code = HYPERTENSION MANAGEMENT; RN TO ASSESS AND TEACH, GREEN JOBS TRAINER/WATER SUPERVISOR TO OBSERVE AND TEACH WARNING SIGNS AND SYMPTOMS TO AVOID HOSPITALIZATION.] Future Scheduled Test HEART FAIL URE MONITORING RN/WATER SUPERVISOR/GREEN JOBS TRAINER TO MONITOR PATIENT FOR SIGNS AND SYMPTOMS OF HEART FAILURE EXACERBATION, MONITOR FOR ADHERENCE WITH MEDICATION AND HEART FAILURE MANAGEMENT REGIMEN. [code = HEART FAILURE MONITORING RN/WATER SUPERVISOR/GREEN JOBS TRAINER TO MONITOR PATIENT FOR SIGNS AND SYMPTOMS OF HEART FAILURE EXACERBATION, MONITOR FOR ADHERENCE WITH MEDICATION AND HEART FAILURE MANAGEMENT REGIMEN.] Future Scheduled Test DIABETES M ONITORING RN/WATER SUPERVISOR/GREEN JOBS TRAINER TO MONITOR BLOOD SUGAR LOG FOR BLOOD SUGAR READINGS THAT ARE BEING CHECKED BY PATIENT, CAREGIVER NEEDED FOR SIGNS AND SYMPTOMS OF HYPER/HYPOGLYCEMIA. PATIENT THERAPEUTIC BLOOD SUGAR PARAMETERS ARE 70 - 300. REPORT BLOOD SUGARS OUT OF RANGE TO PHYSICIAN. NURSE MAY PERFORM FINGER STICK BLOOD GLUCOSE NEEDED FOR SIGNS AND SYMPTOMS OF HYPO AND HYPERGLYCEMIA. RN/WATER SUPERVISOR/GREEN JOBS TRAINER TO MONITOR ADHERENCE OF PATIENT/CAREGIVER PERFORMING DIABETIC FOOT CARE AND MAY PERFORM DIABETIC FOOT CARE PRN. RN/WATER SUPERVISOR/GREEN JOBS TRAINER TO MONITOR FOR ADHERENCE TO DIABETIC SELF-CARE AND MANAGEMENT INCLUDING MEDICATIONS. [code = DIABETES MONITORING RN/WATER SUPERVISOR/GREEN JOBS TRAINER TO MONITOR BLOOD SUGAR LOG FOR BLOOD SUGAR READINGS THAT ARE BEING CHECKED BY PATIENT, CAREGIVER NEEDED FOR SIGNS AND SYMPTOMS OF HYPER/HYPOGLYCEMIA. PATIENT THERAPEUTIC BLOOD SUGAR PARAMETERS ARE 70 - 300. REPORT BLOOD SUGARS OUT OF RANGE TO PHYSICIAN. NURSE MAY PERFORM FINGER STICK BLOOD GLUCOSE NEEDED FOR SIGNS AND SYMPTOMS OF HYPO AND HYPERGLYCEMIA. RN/WATER SUPERVISOR/GREEN JOBS TRAINER TO MONITOR ADHERENCE OF PATIENT/CAREGIVER PERFORMING DIABETIC FOOT CARE AND MAY PERFORM DIABETIC FOOT CARE PRN. RN/WATER SUPERVISOR/GREEN JOBS TRAINER TO MONITOR FOR ADHERENCE TO DIABETIC SELF-CARE AND MANAGEMENT INCLUDING MEDICATIONS.] Future Scheduled Test HYPOTENSIO N MANAGEMENT; RN TO ASSESS AND TEACH/ GREEN JOBS TRAINER /WATER SUPERVISOR TO OBSERVE AND TEACH WARNING SIGNS AND SYMPTOMS TO AVOID HOSPITALIZATION. [code = HYPOTENSION MANAGEMENT; RN TO ASSESS AND TEACH/ GREEN JOBS TRAINER /WATER SUPERVISOR TO OBSERVE AND TEACH WARNING SIGNS AND SYMPTOMS TO AVOID HOSPITALIZATION.] Future Scheduled Test ARRHYTHMIA MANAGEMENT; RN TO ASSESS AND TEACH, GREEN JOBS TRAINER/WATER SUPERVISOR TO OBSERVE AND TEACH WARNING SIGNS AND SYMPTOMS TO AVOID HOSPITALIZATION. [code = ARRHYTHMIA MANAGEMENT; RN TO ASSESS AND TEACH, GREEN JOBS TRAINER/WATER SUPERVISOR TO OBSERVE AND TEACH WARNING SIGNS AND SYMPTOMS TO AVOID HOSPITALIZATION.] Future Scheduled Test MEDICATION MANAGEMENT; RN/GREEN JOBS TRAINER/WATER SUPERVISOR TO REVIEW MEDICATIONS FOR INTERACTIONS, EFFECTIVENESS OF DRUG THERAPY, AND SIGNS/SYMPTOMS OF ADVERSE REACTIONS. MAY INSTRUCT AND REINFORCE MEDICATION TEACHING RELATED TO THE USE OF MEDICATIONS, DOSAGE, FREQUENCY, PURPOSE, SIDE EFFECTS, AND TO REPORT COMPLICATIONS. [code = MEDICATION MANAGEMENT; RN/GREEN JOBS TRAINER/WATER SUPERVISOR TO REVIEW MEDICATIONS FOR INTERACTIONS, EFFECTIVENESS OF [...] EVAL UATE, OBSERVE / ASSESS, AND MONITOR, PORTER SAMPLE CASE TO OBSERVE AND MONITOR, PROVIDE SKILLED THERAPEUTIC INTERVENTION, ACTIVITY, EDUCATION, AND TRAINING TO ADDRESS GEN. WEAKNESS, POOR OVERALL ACTIVITY TOLERANCE, AND FUNCTIONAL LIMITATIONS IMPACTING SAFETY AND INDEPENDENCE. BED MOBILITY (PT/PORTER SAMPLE CASE) PT/PORTER SAMPLE CASE TO PROVIDE GAIT TRAINING FOR IMPROVED MOBILITY AND /OR TO NORMALIZE GAIT PATTERN THERAPEUTIC EXERCISES AND ESTABLISHING A HOME EXERCISE PROGRAM (PT/PORTER SAMPLE CASE) PT/PORTER SAMPLE CASE TO PROVIDE STAIR TRAINING PT / PORTER SAMPLE CASE TO MONITOR AND EDUCATE ON OXYGEN SATURATION DURING ADLS/IADLS, NOTIFY PHYSICIAN AND/OR THE RN CLINICAL POSITION CLASSIFICATION MANAGER FOR PHYSICIAN NOTIFICATION AND IF O2 SATS BELOW PHYSICIAN ORDERED PARAMETERS AFTER 10 MIN OF REST PT / PORTER SAMPLE CASE TO OBSERVE FOR EARLY SIGNS AND SYMPTOMS OF DEPRESSION OR DEPRESSION GETTING WORSE AND TO EDUCATE ON HOW TO FIND HELP. PT / PORTER SAMPLE CASE MAY EDUCATE ON PAIN MANAGEMENT CLINICALLY INDICATED, INCLUDING NON-PHARMACOLOGICAL PAIN REDUCTION TECHNIQUES PT / PORTER SAMPLE CASE TO MONITOR FOR HYPO/HYPERGLYCEMIA AND CONDUCT ROUTINE FOOT INSPECTIONS. RECORD PATIENT REPORTED BLOOD SUGAR LEVELS AND NOTIFY PHYSICIAN AND/OR THE RN CLINICAL POSITION CLASSIFICATION MANAGER FOR PHYSICIAN NOTIFICATION IF BLOOD SUGAR LEVELS ARE OUTSIDE ORDERED PARAMETERS. TEACH PATIENT/CAREGIVER ON DAILY FOOT INSPECTIONS PT / PORTER SAMPLE CASE TO INSTRUCT PATIENT/CAREGIVER ON RISK FOR HOSPITALIZATION/EMERGENCY ROOM VISITS, TEACH SIGNS AND SYMPTOMS THAT PUT PATIENT AT RISK, WHEN TO NOTIFY NURSE/PHYSICIAN OF COMPLICATIONS/DECLINE, AND WHEN TO CALL 911. PT/PORTER SAMPLE CASE TO EDUCATE ON ARTHRITIS SELF-MANAGEMENT PT / PORTER SAMPLE CASE TO EDUCATE ON HEART FAILURE SELF-MANAGEMENT PT / PORTER SAMPLE CASE TO EDUCATE ON HYPERTENSION SELF-MANAGEMENT PT TO ASSESS / PORTER SAMPLE CASE TO MONITOR CARDIO/RESPIRATORY SYSTEM; AND NOTIFY THE PHYSICIAN AND/OR THE RN CLINICAL POSITION CLASSIFICATION MANAGER FOR PHYSICIAN NOTIFICATION FOR EARLY SIGNS AND SYMPTOMS OF EXACERBATION OR DETERIORATION. PT / PORTER SAMPLE CASE TO EDUCATE ON ATRIAL FIBRILLATION SELF-MANAGEMENT. PT / PORTER SAMPLE CASE TO EDUCATE ON PNEUMONIA / ASPIRATION PNEUMONIA SELF-MANAGEMENT. PT/PORTER SAMPLE CASE TO IDENTIFY FALL RISK FACTORS; EDUCATE THE PATIENT/CAREGIVER ON WAYS TO REDUCE FALL RISK FACTORS AND ESTABLISH HOME EXERCISE PROGRAM TO MINIMIZE FALL RISK. MAY TEACH THE PATIENT FLOOR RECOVERY WHEN CLINICALLY APPROPRIATE [code = PT TO EVALUATE, OBSERVE / ASSESS, AND MONITOR, PORTER SAMPLE CASE TO OBSERVE AND MONITOR, PROVIDE SKILLED THERAPEUTIC INTERVENTION, ACTIVITY, EDUCATION, AND TRAINING TO ADDRESS GEN. WEAKNESS, POOR OVERALL ACTIVITY TOLERANCE, AND FUNCTIONAL LIMITATIONS IMPACTING SAFETY AND INDEPENDENCE. BED MOBILITY (PT/PORTER SAMPLE CASE) PT/PORTER SAMPLE CASE TO PROVIDE GAIT TRAINING FOR IMPROVED MOBILITY AND /OR TO NORMALIZE GAIT PATTERN THERAPEUTIC EXERCISES AND ESTABLISHING A HOME EXERCISE PROGRAM (PT/PORTER SAMPLE CASE) PT/PORTER SAMPLE CASE TO PROVIDE STAIR TRAINING PT / PORTER SAMPLE CASE TO MONITOR AND EDUCATE ON OXYGEN SATURATION DURING ADLS/IADLS, NOTIFY PHYSICIAN AND/OR THE RN CLINICAL POSITION CLASSIFICATION MANAGER FOR PHYSICIAN NOTIFICATION AND IF O2 SATS BELOW PHYSICIAN ORDERED PARAMETERS AFTER 10 MIN OF REST PT / PORTER SAMPLE CASE TO OBSERVE FOR EARLY SIGNS AND SYMPTOMS OF DEPRESSION OR DEPRESSION GETTING WORSE AND TO EDUCATE ON HOW TO FIND HELP. PT / PORTER SAMPLE CASE MAY EDUCATE ON PAIN MANAGEMENT CLINICALLY INDICATED, INCLUDING NON-PHARMACOLOGICAL PAIN REDUCTION TECHNIQUES PT / PORTER SAMPLE CASE TO MONITOR FOR HYPO/HYPERGLYCEMIA AND CONDUCT ROUTINE FOOT INSPECTIONS. RECORD PATIENT REPORTED BLOOD SUGAR LEVELS AND NOTIFY PHYSICIAN AND/OR THE RN CLINICAL POSITION CLASSIFICATION MANAGER FOR PHYSICIAN NOTIFICATION IF BLOOD SUGAR LEVELS ARE OUTSIDE ORDERED PARAMETERS. TEACH PATIENT/CAREGIVER ON DAILY FOOT INSPECTIONS PT / PORTER SAMPLE CASE TO INSTRUCT PATIENT/CAREGIVER ON RISK FOR HOSPITALIZATION/EMERGENCY ROOM VISITS, TEACH SIGNS AND SYMPTOMS THAT PUT PATIENT AT RISK, WHEN TO NOTIFY NURSE/PHYSICIAN OF COMPLICATIONS/DECLINE, AND WHEN TO CALL 911. PT/PORTER SAMPLE CASE TO EDUCATE ON ARTHRITIS SELF-MANAGEMENT PT / PORTER SAMPLE CASE TO EDUCATE ON HEART FAILURE SELF-MANAGEMENT PT / PORTER SAMPLE CASE TO EDUCATE ON HYPERTENSION SELF-MANAGEMENT PT TO ASSESS / PORTER SAMPLE CASE TO MONITOR CARDIO/RESPIRATORY SYSTEM; AND NOTIFY THE PHYSICIAN AND/OR THE RN CLINICAL POSITION CLASSIFICATION MANAGER FOR PHYSICIAN NOTIFICATION FOR EARLY SIGNS AND SYMPTOMS OF EXACERBATION OR DETERIORATION. PT / PORTER SAMPLE CASE TO EDUCATE ON ATRIAL FIBRILLATION SELF-MANAGEMENT. PT / PORTER SAMPLE CASE TO EDUCATE ON PNEUMONIA / ASPIRATION PNEUMONIA SELF-MANAGEMENT. PT/PORTER SAMPLE CASE TO IDENTIFY FALL RISK FACTORS; EDUCATE THE PATIENT/CAREGIVER ON WAYS TO REDUCE FALL RISK FACTORS AND ESTABLISH HOME EXERCISE PROGRAM TO MINIMIZE FALL RISK. MAY TEACH THE PATIENT FLOOR RECOVERY WHEN CLINICALLY APPROPRIATE] Future Scheduled Test AGENCY MAY PERFORM A RESUMPTION OF CARE VISIT FOLLOWING ANY HOSPITAL ADMISSION. OT TO EVALUATE, OBSERVE / ASSESS, AND MONITOR, RN CIRCULATING TO OBSERVE AND MONITOR, PROVIDE SKILLED THERAPEUTIC INTERVENTION, ACTIVITY, EDUCATION, AND TRAINING TO ADDRESS SAFETY AND INDEPENDENCE OF ADLS AND FUNCTIONAL TRANSFERS IN HOME ENVIRONMENT. ACTIVITIES OF DAILY LIVING (OT/MARIANNE) THERAPEUTIC EXERCISE (OT/RN CIRCULATING) ENERGY CONSERVATION/ACTIVITY DEMAND (OT/RN CIRCULATING) OT/RN CIRCULATING TO MONITOR AND EDUCATE ON OXYGEN SATURATION DURING ADLS/IADLS, NOTIFY PHYSICIAN AND/OR THE RN CLINICAL POSITION CLASSIFICATION MANAGER FOR PHYSICIAN NOTIFICATION AND IF O2 SATS BELOW 90% AFTER 10 MIN OF REST. OT / RN CIRCULATING TO IDENTIFY FALL RISK FACTORS; EDUCATE THE PATIENT/CAREGIVER ON WAYS TO REDUCE FALL RISK FACTORS AND ESTABLISH HOME EXERCISE PROGRAM TO MINIMIZE FALL RISK. MAY TEACH THE PATIENT FLOOR RECOVERY WHEN CLINICALLY APPROPRIATE. OT/RN CIRCULATING TO EDUCATE ON HYPERTENSION SELF-MANAGEMENT OT/MARIANNE TO EDUCATE ON ATRIAL FIBRILLATION SELF-MANAGEMENT. [code = AGENCY MAY PERFORM A RESUMPTION OF CARE VISIT FOLLOWING ANY HOSPITAL ADMISSION. OT TO EVALUATE, OBSERVE / ASSESS, AND MONITOR, RN CIRCULATING TO OBSERVE AND MONITOR, PROVIDE SKILLED THERAPEUTIC INTERVENTION, ACTIVITY, EDUCATION, AND TRAINING TO ADDRESS SAFETY AND INDEPENDENCE OF ADLS AND FUNCTIONAL TRANSFERS IN HOME ENVIRONMENT. ACTIVITIES OF DAILY LIVING (OT/MARIANNE) THERAPEUTIC EXERCISE (OT/RN CIRCULATING) ENERGY CONSERVATION/ACTIVITY DEMAND (OT/MARIANNE) OT/RN CIRCULATING TO MONITOR AND EDUCATE ON OXYGEN SATURATION DURING ADLS/IADLS, NOTIFY PHYSICIAN AND/OR THE RN CLINICAL POSITION CLASSIFICATION MANAGER FOR PHYSICIAN NOTIFICATION AND IF O2 SATS BELOW 90% AFTER 10 MIN OF REST. OT / MARIANNE TO IDENTIFY FALL RISK FACTORS; EDUCATE THE PATIENT/CAREGIVER ON WAYS TO REDUCE FALL RISK FACTORS AND ESTABLISH HOME EXERCISE PROGRAM TO MINIMIZE FALL RISK. MAY TEACH THE PATIENT FLOOR RECOVERY WHEN CLINICALLY APPROPRIATE. OT/RN CIRCULATING TO EDUCATE ON HYPERTENSION SELF-MANAGEMENT OT/MARIANNE TO [...] OF SKIN INTEGRITY ISSUES FROM SBA TO MT WITHIN 2 WKS. PT STG: PATIENT WILL [...] TO SAFELY NEGOTIATE STAIRS FROM SBA TO MT WITH 2 STEPS W/O HANDRAIL VIA FRONT [...] End Date/Time Encounter Type Admission Type Attending [facility] Care Department Encounter ID Discharge Date Discharge Status Discharge Condition Discharge Reason Percent Goals Met 2025-02-07 00:00:00 2025-04-07 00:00:00 Outpatient NEW ADMISSION [facility] [id number]
--- OUTSIDE RECORDS SUMMARY | 2025-04-06 18:00 | XMS_ITS | Clinical Summary ---
Author Organization Unknown Care Team Providers Care Placement Director Name Role Phone DIGNA ARIEL, ESTRELLA Unavailable Unava dinora STOKES RN, FRANKIE Unavailable Unavailabl e KARI PT, DIDI Unavailable Unavailable NAT TILER, GAUDENCIO Unavailable Unavailabl e RADHA OT, ROLANDO Unavailable Unavailable JOANNE STEVEN, HATTIE Unavailable Unavailable Payers Payer Name Policy Type Policy Number Effective Date Expira tion Date MEDICARE.[facility] [id number] Problems Condition Name Condition Details Condition Category Status Onset Date Resolution Date Last Treatment Date Treating Clinician Comments 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 02-07 [...] OF PNEUMONIA (RECURRENT) Active 02-07 00:00: 00 JUNIOR PARALEGAL (CURRENT) USE OF SYSTEMIC STEROIDS Active 02-07 [...] 80 mg tablet 02-07 00:00: 00 Yes [id number] CHOLESTEROL 1 tablet DAILY 1 tablet DAILY (route: oral) Med Classific ation: Cardiovas cular Therapy Agents digoxin 125 mcg (0.125 mg) tablet 02-07 00:00: 00 02-21 23:59 :00 No [id number] HEART RHYTHM 1 tablet DAILY 1 tablet DAILY (route: oral) Med Classific ation: Cardiovas cular Therapy Agents escitalopra m 10 mg tablet 02-07 00:00: 00 Yes [id number] MOOD 1 tablet DAILY 1 tablet DAILY (route: oral) Med Classific ation: Central Nervous System Agents ezetimibe 10 mg tablet 02-07 00:00: 00 Yes [id number] CHOLESTEROL 1 tablet DAILY 1 tablet DAILY (route: oral) Med Classific ation: Cardiovas cular Therapy Agents metoprolol succinate ER 25 mg tablet,exte nded release 24 hr 02-07 00:00: 00 02-21 23:59 :00 No [id number] BLOOD PRESSURE 0.5 tablet DAILY 0.5 tablet DAILY (route: oral) Med Classific ation: Cardiovas cular Therapy Agents pantoprazol e 40 mg tablet,joão yed release 02-07 00:00: 00 02-21 23:59 :00 No [id number] STOMACH ACID 1 tablet DAILY 1 tablet DAILY (route: oral) Med Classific ation: Gastroint estinal Therapy Agents prednisone 5 mg tablet 02-07 00:00: 00 Yes [id number] ADRENAL INSUFFICIEN CY 1 tablet DAILY 1 tablet DAILY (route: oral) Med Classific ation: Endocrine spironolact one 25 mg tablet 02-07 00:00: 00 Yes [id number] FLUID RETENTION 0.5 tablet DAILY 0.5 tablet DAILY (route: oral) Med Classific ation: Cardiovas cular Therapy Agents tamsulosin 0.4 mg capsule 02-07 00:00: 00 02-21 23:59 :00 No [id number] URINARY HEALTH 1 capsule DAILY 1 capsule DAILY (route: oral) Med Classific ation: Genitouri nary Therapy acetaminoph en 325 mg tablet 2024-05 00:00: 00 Yes [id number] PAIN 2 tablet 2 TIMES DAILY 2 tablet 2 TIMES DAILY (route: oral) Med Classific ation: Analgesic , Anti-infl ammatory or Antipyret ic aspirin 81 mg tablet 2024-05 00:00: 00 Yes [id number] ANTICOAGULA NT 1 tablet DAILY 1 tablet DAILY (route: oral) Med Classific ation: Hematolog ical Agents ipratropium 0.5 mg-albutero l 3 mg (2.5 mg base)/3 mL nebulizatio n soln 2024-05 00:00: 00 Yes [id number] COPD 3 mL EVERY 6 HOURS 3 mL EVERY 6 HOURS (route: inhalation ) Med Classific ation: Respirato ry Therapy Agents Lanoxin 62.5 mcg (0.0625 mg) tablet 2024-05 00:00: 00 Yes [id number] CHF 1 tablet DAILY 1 tablet DAILY (route: oral) Med Classific ation: Cardiovas cular Therapy Agents Lasix 20 mg tablet 2024-05 00:00: 00 Yes [id number] CHF 1 tablet DAILY 1 tablet DAILY (route: oral) Med Classific ation: Cardiovas cular Therapy Agents Toprol XL 25 mg tablet,exte nded release 2024-05 00:00: 00 Yes [id number] BP 25 mg DAILY 25 mg DAILY [...] SYSTEM MANAGEMENT; RN TO ASSESS AND TEACH, GENERATOR TECHNICIAN/TECHNICAL ADJUSTER TO OBSERVE AND TEACH RELATED TO ALTERED RESPIRATORY STATUS TO MINIMIZE COMPLICATIONS AND REDUCE HOSPITALIZATION. [code = SN 1WK9 PT 1WK1 OT EFFECTIVE 02/10/2025K1 RESPIRATORY SYSTEM MANAGEMENT; RN TO ASSESS AND TEACH, GENERATOR TECHNICIAN/TECHNICAL ADJUSTER TO OBSERVE AND TEACH RELATED TO ALTERED RESPIRATORY STATUS TO MINIMIZE COMPLICATIONS AND REDUCE HOSPITALIZATION.] Future Scheduled Test TRACHEOSTO MY CARE MANAGEMENT; RN/GENERATOR TECHNICIAN/TECHNICAL ADJUSTER TO INSTRUCT PATIENT/CAREGIVER ON CARE AND MANAGEMENT OF TRACHEOSTOMY. RN/ GENERATOR TECHNICIAN/TECHNICAL ADJUSTER TO PROVIDE SKILLED TEACHING ON TRACH COLLAR SUCTIONING PRN WITH 14 FR SUCTION CATHETER PER PATIENT TRACH CARE WITH INNER CANNULA: REMOVE INNER CANNULA, CLEANSE WITH NORMAL SALINE AND OR STERILE WATER AND REINSERT NON-DISPOSABLE CANNULA SIZE OF INNER CANNULA 5 BROOKS [code = TRACHEOSTOMY CARE MANAGEMENT; RN/GENERATOR TECHNICIAN/TECHNICAL ADJUSTER TO INSTRUCT PATIENT/CAREGIVER ON CARE AND MANAGEMENT OF TRACHEOSTOMY. RN/ GENERATOR TECHNICIAN/TECHNICAL ADJUSTER TO PROVIDE SKILLED TEACHING ON TRACH COLLAR SUCTIONING PRN WITH 14 FR SUCTION CATHETER PER PATIENT TRACH CARE WITH INNER CANNULA: REMOVE INNER CANNULA, CLEANSE WITH NORMAL SALINE AND OR STERILE WATER AND REINSERT NON-DISPOSABLE CANNULA SIZE OF INNER CANNULA 5 BROOKS] Future Scheduled Test FALL REDUC TION MANAGEMENT; RN TO ASSESS AND OBSERVE, GENERATOR TECHNICIAN/TECHNICAL ADJUSTER TO OBSERVE FALL RISK FACTORS AND EDUCATE PATIENT/CAREGIVER ON STRATEGIES TO MINIMIZE THE RISK OF FALLING. [code = FALL REDUCTION MANAGEMENT; RN TO ASSESS AND OBSERVE, GENERATOR TECHNICIAN/TECHNICAL ADJUSTER TO OBSERVE FALL RISK FACTORS AND EDUCATE PATIENT/CAREGIVER ON STRATEGIES TO MINIMIZE THE RISK OF FALLING.] Future Scheduled Test ANEMIA MAN AGEMENT; RN TO ASSESS AND TEACH, TECHNICAL ADJUSTER/GENERATOR TECHNICIAN TO OBSERVE AND TEACH AND PROVIDE EDUCATION ON ANEMIA. [code = ANEMIA MANAGEMENT; RN TO ASSESS AND TEACH, TECHNICAL ADJUSTER/GENERATOR TECHNICIAN TO OBSERVE AND TEACH AND PROVIDE EDUCATION ON ANEMIA.] Future Scheduled Test RN TO OBSE RVE, ASSESS, EVALUATE, AND DEVELOP AN INDIVIDUALIZED PLAN OF CARE. AGENCY MAY ACCEPT ORDERS FROM CONSULTING PHYSICIANS RN TO OBSERVE AND ASSESS, GENERATOR TECHNICIAN/TECHNICAL ADJUSTER TO OBSERVE FOR RISK FOR FALLS AND INSTRUCT IN FALL PREVENTION, HOME SAFETY, MEDICATION MANAGEMENT, INFECTION PREVENTION, AND NUTRITION MANAGEMENT. RN/GENERATOR TECHNICIAN/TECHNICAL ADJUSTER NURSE MAY PERFORM O2 SATURATION LEVEL ON ADMISSION AND PRN FOR RN TO ASSESS/GENERATOR TECHNICIAN TO OBSERVE PATIENT, WITH NOTIFICATION TO THE PHYSICIAN IF SATURATION IS 90% IN THE ABSENCE OF MORE SPECIFIC PARAMETERS FROM THE PHYSICIAN. AGENCY MAY PERFORM A RESUMPTION OF CARE VISIT FOLLOWING ANY HOSPITAL ADMISSION. RN/GENERATOR TECHNICIAN/TECHNICAL ADJUSTER TO MONITOR CO-MORBID CONDITIONS LISTED ON THE PLAN OF CARE AND ANY NEW CONDITIONS THAT PRESENT THEMSELVES DURING THIS EPISODE TO IDENTIFY CHANGES AND INTERVENE TO MINIMIZE COMPLICATIONS. [code = RN TO OBSERVE, ASSESS, EVALUATE, AND DEVELOP AN INDIVIDUALIZED PLAN OF CARE. AGENCY MAY ACCEPT ORDERS FROM CONSULTING PHYSICIANS RN TO OBSERVE AND ASSESS, GENERATOR TECHNICIAN/TECHNICAL ADJUSTER TO OBSERVE FOR RISK FOR FALLS AND INSTRUCT IN FALL PREVENTION, HOME SAFETY, MEDICATION MANAGEMENT, INFECTION PREVENTION, AND NUTRITION MANAGEMENT. RN/GENERATOR TECHNICIAN/TECHNICAL ADJUSTER NURSE MAY PERFORM O2 SATURATION LEVEL ON ADMISSION AND PRN FOR RN TO ASSESS/GENERATOR TECHNICIAN TO OBSERVE PATIENT, WITH NOTIFICATION TO THE PHYSICIAN IF SATURATION IS 90% IN THE ABSENCE OF MORE SPECIFIC PARAMETERS FROM THE PHYSICIAN. AGENCY MAY PERFORM A RESUMPTION OF CARE VISIT FOLLOWING ANY HOSPITAL ADMISSION. RN/GENERATOR TECHNICIAN/TECHNICAL ADJUSTER TO MONITOR CO-MORBID CONDITIONS LISTED ON THE PLAN OF CARE AND ANY NEW CONDITIONS THAT PRESENT THEMSELVES DURING THIS EPISODE TO IDENTIFY CHANGES AND INTERVENE TO MINIMIZE COMPLICATIONS.] Future Scheduled Test PAIN MANAG EMENT; RN TO ASSESS AND TEACH, TECHNICAL ADJUSTER/GENERATOR TECHNICIAN TO OBSERVE AND TEACH AND PROVIDE EDUCATION ON PAIN MANAGEMENT TECHNIQUES. [code = PAIN MANAGEMENT; RN TO ASSESS AND TEACH, TECHNICAL ADJUSTER/GENERATOR TECHNICIAN TO OBSERVE AND TEACH AND PROVIDE EDUCATION ON PAIN MANAGEMENT TECHNIQUES.] Future Scheduled Test RISK FOR H OSPITALIZATION; RN TO ASSESS/TEACH, TECHNICAL ADJUSTER/GENERATOR TECHNICIAN TO OBSERVE/TEACH PATIENT/CAREGIVER ON RISK FOR HOSPITALIZATION/EMERGENCY ROOM VISITS, TEACH SIGNS AND SYMPTOMS THAT PUT PATIENT AT RISK, WHEN TO NOTIFY NURSE/PHYSICIAN OF COMPLICATIONS/DECLINE, AND WHEN TO CALL 911. [code = RISK FOR HOSPITALIZATION; RN TO ASSESS/TEACH, TECHNICAL ADJUSTER/GENERATOR TECHNICIAN TO OBSERVE/TEACH PATIENT/CAREGIVER ON RISK FOR HOSPITALIZATION/EMERGENCY ROOM VISITS, TEACH SIGNS AND SYMPTOMS THAT PUT PATIENT AT RISK, WHEN TO NOTIFY NURSE/PHYSICIAN OF COMPLICATIONS/DECLINE, AND WHEN TO CALL 911.] Future Scheduled Test CARDIOVASC ULAR SYSTEM; RN TO ASSESS/TEACH, GENERATOR TECHNICIAN/TECHNICAL ADJUSTER TO OBSERVE/TEACH RELATED TO ALTERED CARDIOVASCULAR STATUS TO MINIMIZE COMPLICATIONS AND REDUCE HOSPITALIZATION. [code = CARDIOVASCULAR SYSTEM; RN TO ASSESS/TEACH, GENERATOR TECHNICIAN/TECHNICAL ADJUSTER TO OBSERVE/TEACH RELATED TO ALTERED CARDIOVASCULAR STATUS TO MINIMIZE COMPLICATIONS AND REDUCE HOSPITALIZATION.] Future Scheduled Test HYPERTENSI ON MANAGEMENT; RN TO ASSESS AND TEACH, GENERATOR TECHNICIAN/TECHNICAL ADJUSTER TO OBSERVE AND TEACH WARNING SIGNS AND SYMPTOMS TO AVOID HOSPITALIZATION. [code = HYPERTENSION MANAGEMENT; RN TO ASSESS AND TEACH, GENERATOR TECHNICIAN/TECHNICAL ADJUSTER TO OBSERVE AND TEACH WARNING SIGNS AND SYMPTOMS TO AVOID HOSPITALIZATION.] Future Scheduled Test HEART FAIL URE MONITORING RN/TECHNICAL ADJUSTER/GENERATOR TECHNICIAN TO MONITOR PATIENT FOR SIGNS AND SYMPTOMS OF HEART FAILURE EXACERBATION, MONITOR FOR ADHERENCE WITH MEDICATION AND HEART FAILURE MANAGEMENT REGIMEN. [code = HEART FAILURE MONITORING RN/TECHNICAL ADJUSTER/GENERATOR TECHNICIAN TO MONITOR PATIENT FOR SIGNS AND SYMPTOMS OF HEART FAILURE EXACERBATION, MONITOR FOR ADHERENCE WITH MEDICATION AND HEART FAILURE MANAGEMENT REGIMEN.] Future Scheduled Test DIABETES M ONITORING RN/TECHNICAL ADJUSTER/GENERATOR TECHNICIAN TO MONITOR BLOOD SUGAR LOG FOR BLOOD SUGAR READINGS THAT ARE BEING CHECKED BY PATIENT, CAREGIVER NEEDED FOR SIGNS AND SYMPTOMS OF HYPER/HYPOGLYCEMIA. PATIENT THERAPEUTIC BLOOD SUGAR PARAMETERS ARE 70 - 300. REPORT BLOOD SUGARS OUT OF RANGE TO PHYSICIAN. NURSE MAY PERFORM FINGER STICK BLOOD GLUCOSE NEEDED FOR SIGNS AND SYMPTOMS OF HYPO AND HYPERGLYCEMIA. RN/TECHNICAL ADJUSTER/GENERATOR TECHNICIAN TO MONITOR ADHERENCE OF PATIENT/CAREGIVER PERFORMING DIABETIC FOOT CARE AND MAY PERFORM DIABETIC FOOT CARE PRN. RN/TECHNICAL ADJUSTER/GENERATOR TECHNICIAN TO MONITOR FOR ADHERENCE TO DIABETIC SELF-CARE AND MANAGEMENT INCLUDING MEDICATIONS. [code = DIABETES MONITORING RN/TECHNICAL ADJUSTER/GENERATOR TECHNICIAN TO MONITOR BLOOD SUGAR LOG FOR BLOOD SUGAR READINGS THAT ARE BEING CHECKED BY PATIENT, CAREGIVER NEEDED FOR SIGNS AND SYMPTOMS OF HYPER/HYPOGLYCEMIA. PATIENT THERAPEUTIC BLOOD SUGAR PARAMETERS ARE 70 - 300. REPORT BLOOD SUGARS OUT OF RANGE TO PHYSICIAN. NURSE MAY PERFORM FINGER STICK BLOOD GLUCOSE NEEDED FOR SIGNS AND SYMPTOMS OF HYPO AND HYPERGLYCEMIA. RN/TECHNICAL ADJUSTER/GENERATOR TECHNICIAN TO MONITOR ADHERENCE OF PATIENT/CAREGIVER PERFORMING DIABETIC FOOT CARE AND MAY PERFORM DIABETIC FOOT CARE PRN. RN/TECHNICAL ADJUSTER/GENERATOR TECHNICIAN TO MONITOR FOR ADHERENCE TO DIABETIC SELF-CARE AND MANAGEMENT INCLUDING MEDICATIONS.] Future Scheduled Test HYPOTENSIO N MANAGEMENT; RN TO ASSESS AND TEACH/ GENERATOR TECHNICIAN /TECHNICAL ADJUSTER TO OBSERVE AND TEACH WARNING SIGNS AND SYMPTOMS TO AVOID HOSPITALIZATION. [code = HYPOTENSION MANAGEMENT; RN TO ASSESS AND TEACH/ GENERATOR TECHNICIAN /TECHNICAL ADJUSTER TO OBSERVE AND TEACH WARNING SIGNS AND SYMPTOMS TO AVOID HOSPITALIZATION.] Future Scheduled Test ARRHYTHMIA MANAGEMENT; RN TO ASSESS AND TEACH, GENERATOR TECHNICIAN/TECHNICAL ADJUSTER TO OBSERVE AND TEACH WARNING SIGNS AND SYMPTOMS TO AVOID HOSPITALIZATION. [code = ARRHYTHMIA MANAGEMENT; RN TO ASSESS AND TEACH, GENERATOR TECHNICIAN/TECHNICAL ADJUSTER TO OBSERVE AND TEACH WARNING SIGNS AND SYMPTOMS TO AVOID HOSPITALIZATION.] Future Scheduled Test MEDICATION MANAGEMENT; RN/GENERATOR TECHNICIAN/TECHNICAL ADJUSTER TO REVIEW MEDICATIONS FOR INTERACTIONS, EFFECTIVENESS OF DRUG THERAPY, AND SIGNS/SYMPTOMS OF ADVERSE REACTIONS. MAY INSTRUCT AND REINFORCE MEDICATION TEACHING RELATED TO THE USE OF MEDICATIONS, DOSAGE, FREQUENCY, PURPOSE, SIDE EFFECTS, AND TO REPORT COMPLICATIONS. [code = MEDICATION MANAGEMENT; RN/GENERATOR TECHNICIAN/TECHNICAL ADJUSTER TO REVIEW MEDICATIONS FOR INTERACTIONS, EFFECTIVENESS OF [...] EVAL UATE, OBSERVE / ASSESS, AND MONITOR, TILER TO OBSERVE AND MONITOR, PROVIDE SKILLED THERAPEUTIC INTERVENTION, ACTIVITY, EDUCATION, AND TRAINING TO ADDRESS GEN. WEAKNESS, POOR OVERALL ACTIVITY TOLERANCE, AND FUNCTIONAL LIMITATIONS IMPACTING SAFETY AND INDEPENDENCE. BED MOBILITY (PT/TILER) PT/TILER TO PROVIDE GAIT TRAINING FOR IMPROVED MOBILITY AND /OR TO NORMALIZE GAIT PATTERN THERAPEUTIC EXERCISES AND ESTABLISHING A HOME EXERCISE PROGRAM (PT/TILER) PT/TILER TO PROVIDE STAIR TRAINING PT / TILER TO MONITOR AND EDUCATE ON OXYGEN SATURATION DURING ADLS/IADLS, NOTIFY PHYSICIAN AND/OR THE RN CLINICAL RESOURCE ANALYST FOR PHYSICIAN NOTIFICATION AND IF O2 SATS BELOW PHYSICIAN ORDERED PARAMETERS AFTER 10 MIN OF REST PT / TILER TO OBSERVE FOR EARLY SIGNS AND SYMPTOMS OF DEPRESSION OR DEPRESSION GETTING WORSE AND TO EDUCATE ON HOW TO FIND HELP. PT / TILER MAY EDUCATE ON PAIN MANAGEMENT CLINICALLY INDICATED, INCLUDING NON-PHARMACOLOGICAL PAIN REDUCTION TECHNIQUES PT / TILER TO MONITOR FOR HYPO/HYPERGLYCEMIA AND CONDUCT ROUTINE FOOT INSPECTIONS. RECORD PATIENT REPORTED BLOOD SUGAR LEVELS AND NOTIFY PHYSICIAN AND/OR THE RN CLINICAL RESOURCE ANALYST FOR PHYSICIAN NOTIFICATION IF BLOOD SUGAR LEVELS ARE OUTSIDE ORDERED PARAMETERS. TEACH PATIENT/CAREGIVER ON DAILY FOOT INSPECTIONS PT / TILER TO INSTRUCT PATIENT/CAREGIVER ON RISK FOR HOSPITALIZATION/EMERGENCY ROOM VISITS, TEACH SIGNS AND SYMPTOMS THAT PUT PATIENT AT RISK, WHEN TO NOTIFY NURSE/PHYSICIAN OF COMPLICATIONS/DECLINE, AND WHEN TO CALL 911. PT/TILER TO EDUCATE ON ARTHRITIS SELF-MANAGEMENT PT / TILER TO EDUCATE ON HEART FAILURE SELF-MANAGEMENT PT / TILER TO EDUCATE ON HYPERTENSION SELF-MANAGEMENT PT TO ASSESS / TILER TO MONITOR CARDIO/RESPIRATORY SYSTEM; AND NOTIFY THE PHYSICIAN AND/OR THE RN CLINICAL RESOURCE ANALYST FOR PHYSICIAN NOTIFICATION FOR EARLY SIGNS AND SYMPTOMS OF EXACERBATION OR DETERIORATION. PT / TILER TO EDUCATE ON ATRIAL FIBRILLATION SELF-MANAGEMENT. PT / TILER TO EDUCATE ON PNEUMONIA / ASPIRATION PNEUMONIA SELF-MANAGEMENT. PT/TILER TO IDENTIFY FALL RISK FACTORS; EDUCATE THE PATIENT/CAREGIVER ON WAYS TO REDUCE FALL RISK FACTORS AND ESTABLISH HOME EXERCISE PROGRAM TO MINIMIZE FALL RISK. MAY TEACH THE PATIENT FLOOR RECOVERY WHEN CLINICALLY APPROPRIATE [code = PT TO EVALUATE, OBSERVE / ASSESS, AND MONITOR, TILER TO OBSERVE AND MONITOR, PROVIDE SKILLED THERAPEUTIC INTERVENTION, ACTIVITY, EDUCATION, AND TRAINING TO ADDRESS GEN. WEAKNESS, POOR OVERALL ACTIVITY TOLERANCE, AND FUNCTIONAL LIMITATIONS IMPACTING SAFETY AND INDEPENDENCE. BED MOBILITY (PT/TILER) PT/TILER TO PROVIDE GAIT TRAINING FOR IMPROVED MOBILITY AND /OR TO NORMALIZE GAIT PATTERN THERAPEUTIC EXERCISES AND ESTABLISHING A HOME EXERCISE PROGRAM (PT/TILER) PT/TILER TO PROVIDE STAIR TRAINING PT / TILER TO MONITOR AND EDUCATE ON OXYGEN SATURATION DURING ADLS/IADLS, NOTIFY PHYSICIAN AND/OR THE RN CLINICAL RESOURCE ANALYST FOR PHYSICIAN NOTIFICATION AND IF O2 SATS BELOW PHYSICIAN ORDERED PARAMETERS AFTER 10 MIN OF REST PT / TILER TO OBSERVE FOR EARLY SIGNS AND SYMPTOMS OF DEPRESSION OR DEPRESSION GETTING WORSE AND TO EDUCATE ON HOW TO FIND HELP. PT / TILER MAY EDUCATE ON PAIN MANAGEMENT CLINICALLY INDICATED, INCLUDING NON-PHARMACOLOGICAL PAIN REDUCTION TECHNIQUES PT / TILER TO MONITOR FOR HYPO/HYPERGLYCEMIA AND CONDUCT ROUTINE FOOT INSPECTIONS. RECORD PATIENT REPORTED BLOOD SUGAR LEVELS AND NOTIFY PHYSICIAN AND/OR THE RN CLINICAL RESOURCE ANALYST FOR PHYSICIAN NOTIFICATION IF BLOOD SUGAR LEVELS ARE OUTSIDE ORDERED PARAMETERS. TEACH PATIENT/CAREGIVER ON DAILY FOOT INSPECTIONS PT / TILER TO INSTRUCT PATIENT/CAREGIVER ON RISK FOR HOSPITALIZATION/EMERGENCY ROOM VISITS, TEACH SIGNS AND SYMPTOMS THAT PUT PATIENT AT RISK, WHEN TO NOTIFY NURSE/PHYSICIAN OF COMPLICATIONS/DECLINE, AND WHEN TO CALL 911. PT/TILER TO EDUCATE ON ARTHRITIS SELF-MANAGEMENT PT / TILER TO EDUCATE ON HEART FAILURE SELF-MANAGEMENT PT / TILER TO EDUCATE ON HYPERTENSION SELF-MANAGEMENT PT TO ASSESS / TILER TO MONITOR CARDIO/RESPIRATORY SYSTEM; AND NOTIFY THE PHYSICIAN AND/OR THE RN CLINICAL RESOURCE ANALYST FOR PHYSICIAN NOTIFICATION FOR EARLY SIGNS AND SYMPTOMS OF EXACERBATION OR DETERIORATION. PT / TILER TO EDUCATE ON ATRIAL FIBRILLATION SELF-MANAGEMENT. PT / TILER TO EDUCATE ON PNEUMONIA / ASPIRATION PNEUMONIA SELF-MANAGEMENT. PT/TILER TO IDENTIFY FALL RISK FACTORS; EDUCATE THE PATIENT/CAREGIVER ON WAYS TO REDUCE FALL RISK FACTORS AND ESTABLISH HOME EXERCISE PROGRAM TO MINIMIZE FALL RISK. MAY TEACH THE PATIENT FLOOR RECOVERY WHEN CLINICALLY APPROPRIATE] Future Scheduled Test AGENCY MAY PERFORM A RESUMPTION OF CARE VISIT FOLLOWING ANY HOSPITAL ADMISSION. OT TO EVALUATE, OBSERVE / ASSESS, AND MONITOR, POLITICAL DIRECTOR TO OBSERVE AND MONITOR, PROVIDE SKILLED THERAPEUTIC INTERVENTION, ACTIVITY, EDUCATION, AND TRAINING TO ADDRESS SAFETY AND INDEPENDENCE OF ADLS AND FUNCTIONAL TRANSFERS IN HOME ENVIRONMENT. ACTIVITIES OF DAILY LIVING (OT/MARIANNE) THERAPEUTIC EXERCISE (OT/POLITICAL DIRECTOR) ENERGY CONSERVATION/ACTIVITY DEMAND (OT/POLITICAL DIRECTOR) OT/POLITICAL DIRECTOR TO MONITOR AND EDUCATE ON OXYGEN SATURATION DURING ADLS/IADLS, NOTIFY PHYSICIAN AND/OR THE RN CLINICAL RESOURCE ANALYST FOR PHYSICIAN NOTIFICATION AND IF O2 SATS BELOW 90% AFTER 10 MIN OF REST. OT / POLITICAL DIRECTOR TO IDENTIFY FALL RISK FACTORS; EDUCATE THE PATIENT/CAREGIVER ON WAYS TO REDUCE FALL RISK FACTORS AND ESTABLISH HOME EXERCISE PROGRAM TO MINIMIZE FALL RISK. MAY TEACH THE PATIENT FLOOR RECOVERY WHEN CLINICALLY APPROPRIATE. OT/POLITICAL DIRECTOR TO EDUCATE ON HYPERTENSION SELF-MANAGEMENT OT/MARIANNE TO EDUCATE ON ATRIAL FIBRILLATION SELF-MANAGEMENT. [code = AGENCY MAY PERFORM A RESUMPTION OF CARE VISIT FOLLOWING ANY HOSPITAL ADMISSION. OT TO EVALUATE, OBSERVE / ASSESS, AND MONITOR, POLITICAL DIRECTOR TO OBSERVE AND MONITOR, PROVIDE SKILLED THERAPEUTIC INTERVENTION, ACTIVITY, EDUCATION, AND TRAINING TO ADDRESS SAFETY AND INDEPENDENCE OF ADLS AND FUNCTIONAL TRANSFERS IN HOME ENVIRONMENT. ACTIVITIES OF DAILY LIVING (OT/MARIANNE) THERAPEUTIC EXERCISE (OT/POLITICAL DIRECTOR) ENERGY CONSERVATION/ACTIVITY DEMAND (OT/MARIANNE) OT/POLITICAL DIRECTOR TO MONITOR AND EDUCATE ON OXYGEN SATURATION DURING ADLS/IADLS, NOTIFY PHYSICIAN AND/OR THE RN CLINICAL RESOURCE ANALYST FOR PHYSICIAN NOTIFICATION AND IF O2 SATS BELOW 90% AFTER 10 MIN OF REST. OT / MARIANNE TO IDENTIFY FALL RISK FACTORS; EDUCATE THE PATIENT/CAREGIVER ON WAYS TO REDUCE FALL RISK FACTORS AND ESTABLISH HOME EXERCISE PROGRAM TO MINIMIZE FALL RISK. MAY TEACH THE PATIENT FLOOR RECOVERY WHEN CLINICALLY APPROPRIATE. OT/POLITICAL DIRECTOR TO EDUCATE ON HYPERTENSION SELF-MANAGEMENT OT/MARIANNE TO [...] OF SKIN INTEGRITY ISSUES FROM [place] TO [place] WITHIN 2 WKS. PT STG: PATIENT WILL [...] TO SAFELY NEGOTIATE STAIRS FROM [place] TO [place] WITH 2 STEPS W/O HANDRAIL VIA FRONT [...] End Date/Time Encounter Type Admission Type Attending [facility] Care Department Encounter ID Discharge Date Discharge Status Discharge Condition Discharge Reason Percent Goals Met 2025-02-07 00:00:00 2025-04-07 00:00:00 Outpatient NEW ADMISSION FRANKIE STOKES [facility] [id number]
--- OUTSIDE RECORDS SUMMARY | 2025-04-06 18:00 | XMS_ITS | Clinical Summary ---
Author Organization Unknown Care Team Providers Care Emergency Communications Officer Name Role Phone DIGNA ARIEL, ESTRELLA Unavailable Unava dinora STOKES RN, FRANKIE Unavailable Unavailabl e KARI PT, DIDI Unavailable Unavailable NAT FELT HAT INSPECTOR AND PACKER, GAUDENCIO Unavailable Unavailabl e RADHA OT, ROLANDO Unavailable Unavailable JOANNE STEVEN, HATTIE Unavailable Unavailable Payers Payer Name Policy Type Policy Number Effective Date Expira tion Date MEDICARE.[facility] [id number] Problems Condition Name Condition Details Condition Category Status Onset Date Resolution Date Last Treatment Date Treating Clinician Comments 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 02-07 [...] OF PNEUMONIA (RECURRENT) Active 02-07 00:00: 00 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) USE OF SYSTEMIC STEROIDS Active 02-07 [...] 80 mg tablet 02-07 00:00: 00 Yes [id number] CHOLESTEROL 1 tablet DAILY 1 tablet DAILY (route: oral) Med Classific ation: Cardiovas cular Therapy Agents digoxin 125 mcg (0.125 mg) tablet 02-07 00:00: 00 02-21 23:59 :00 No [id number] HEART RHYTHM 1 tablet DAILY 1 tablet DAILY (route: oral) Med Classific ation: Cardiovas cular Therapy Agents escitalopra m 10 mg tablet 02-07 00:00: 00 Yes [id number] MOOD 1 tablet DAILY 1 tablet DAILY (route: oral) Med Classific ation: Central Nervous System Agents ezetimibe 10 mg tablet 02-07 00:00: 00 Yes [id number] CHOLESTEROL 1 tablet DAILY 1 tablet DAILY (route: oral) Med Classific ation: Cardiovas cular Therapy Agents metoprolol succinate ER 25 mg tablet,exte nded release 24 hr 02-07 00:00: 00 02-21 23:59 :00 No [id number] BLOOD PRESSURE 0.5 tablet DAILY 0.5 tablet DAILY (route: oral) Med Classific ation: Cardiovas cular Therapy Agents pantoprazol e 40 mg tablet,joão yed release 02-07 00:00: 00 02-21 23:59 :00 No [id number] STOMACH ACID 1 tablet DAILY 1 tablet DAILY (route: oral) Med Classific ation: Gastroint estinal Therapy Agents prednisone 5 mg tablet 02-07 00:00: 00 Yes [id number] ADRENAL INSUFFICIEN CY 1 tablet DAILY 1 tablet DAILY (route: oral) Med Classific ation: Endocrine spironolact one 25 mg tablet 02-07 00:00: 00 Yes [id number] FLUID RETENTION 0.5 tablet DAILY 0.5 tablet DAILY (route: oral) Med Classific ation: Cardiovas cular Therapy Agents tamsulosin 0.4 mg capsule 02-07 00:00: 00 02-21 23:59 :00 No [id number] URINARY HEALTH 1 capsule DAILY 1 capsule DAILY (route: oral) Med Classific ation: Genitouri nary Therapy acetaminoph en 325 mg tablet 2024-05 00:00: 00 Yes [id number] PAIN 2 tablet 2 TIMES DAILY 2 tablet 2 TIMES DAILY (route: oral) Med Classific ation: Analgesic , Anti-infl ammatory or Antipyret ic aspirin 81 mg tablet 2024-05 00:00: 00 Yes [id number] ANTICOAGULA NT 1 tablet DAILY 1 tablet DAILY (route: oral) Med Classific ation: Hematolog ical Agents ipratropium 0.5 mg-albutero l 3 mg (2.5 mg base)/3 mL nebulizatio n soln 2024-05 00:00: 00 Yes [id number] COPD 3 mL EVERY 6 HOURS 3 mL EVERY 6 HOURS (route: inhalation ) Med Classific ation: Respirato ry Therapy Agents Lanoxin 62.5 mcg (0.0625 mg) tablet 2024-05 00:00: 00 Yes [id number] CHF 1 tablet DAILY 1 tablet DAILY (route: oral) Med Classific ation: Cardiovas cular Therapy Agents Lasix 20 mg tablet 2024-05 00:00: 00 Yes [id number] CHF 1 tablet DAILY 1 tablet DAILY (route: oral) Med Classific ation: Cardiovas cular Therapy Agents Toprol XL 25 mg tablet,exte nded release 2024-05 00:00: 00 Yes [id number] BP 25 mg DAILY 25 mg DAILY [...] SYSTEM MANAGEMENT; RN TO ASSESS AND TEACH, DIRECTOR OF PSYCHOLOGY/OIL FIRE SPECIALIST TO OBSERVE AND TEACH RELATED TO ALTERED RESPIRATORY STATUS TO MINIMIZE COMPLICATIONS AND REDUCE HOSPITALIZATION. [code = SN 1WK9 PT 1WK1 OT EFFECTIVE 02/10/2025K1 RESPIRATORY SYSTEM MANAGEMENT; RN TO ASSESS AND TEACH, DIRECTOR OF PSYCHOLOGY/OIL FIRE SPECIALIST TO OBSERVE AND TEACH RELATED TO ALTERED RESPIRATORY STATUS TO MINIMIZE COMPLICATIONS AND REDUCE HOSPITALIZATION.] Future Scheduled Test TRACHEOSTO MY CARE MANAGEMENT; RN/DIRECTOR OF PSYCHOLOGY/OIL FIRE SPECIALIST TO INSTRUCT PATIENT/CAREGIVER ON CARE AND MANAGEMENT OF TRACHEOSTOMY. RN/ DIRECTOR OF PSYCHOLOGY/OIL FIRE SPECIALIST TO PROVIDE SKILLED TEACHING ON TRACH COLLAR SUCTIONING PRN WITH 14 FR SUCTION CATHETER PER PATIENT TRACH CARE WITH INNER CANNULA: REMOVE INNER CANNULA, CLEANSE WITH NORMAL SALINE AND OR STERILE WATER AND REINSERT NON-DISPOSABLE CANNULA SIZE OF INNER CANNULA 5 BROOKS [code = TRACHEOSTOMY CARE MANAGEMENT; RN/DIRECTOR OF PSYCHOLOGY/OIL FIRE SPECIALIST TO INSTRUCT PATIENT/CAREGIVER ON CARE AND MANAGEMENT OF TRACHEOSTOMY. RN/ DIRECTOR OF PSYCHOLOGY/OIL FIRE SPECIALIST TO PROVIDE SKILLED TEACHING ON TRACH COLLAR SUCTIONING PRN WITH 14 FR SUCTION CATHETER PER PATIENT TRACH CARE WITH INNER CANNULA: REMOVE INNER CANNULA, CLEANSE WITH NORMAL SALINE AND OR STERILE WATER AND REINSERT NON-DISPOSABLE CANNULA SIZE OF INNER CANNULA 5 BROOKS] Future Scheduled Test FALL REDUC TION MANAGEMENT; RN TO ASSESS AND OBSERVE, DIRECTOR OF PSYCHOLOGY/OIL FIRE SPECIALIST TO OBSERVE FALL RISK FACTORS AND EDUCATE PATIENT/CAREGIVER ON STRATEGIES TO MINIMIZE THE RISK OF FALLING. [code = FALL REDUCTION MANAGEMENT; RN TO ASSESS AND OBSERVE, DIRECTOR OF PSYCHOLOGY/OIL FIRE SPECIALIST TO OBSERVE FALL RISK FACTORS AND EDUCATE PATIENT/CAREGIVER ON STRATEGIES TO MINIMIZE THE RISK OF FALLING.] Future Scheduled Test ANEMIA MAN AGEMENT; RN TO ASSESS AND TEACH, OIL FIRE SPECIALIST/DIRECTOR OF PSYCHOLOGY TO OBSERVE AND TEACH AND PROVIDE EDUCATION ON ANEMIA. [code = ANEMIA MANAGEMENT; RN TO ASSESS AND TEACH, OIL FIRE SPECIALIST/DIRECTOR OF PSYCHOLOGY TO OBSERVE AND TEACH AND PROVIDE EDUCATION ON ANEMIA.] Future Scheduled Test RN TO OBSE RVE, ASSESS, EVALUATE, AND DEVELOP AN INDIVIDUALIZED PLAN OF CARE. AGENCY MAY ACCEPT ORDERS FROM CONSULTING PHYSICIANS RN TO OBSERVE AND ASSESS, DIRECTOR OF PSYCHOLOGY/OIL FIRE SPECIALIST TO OBSERVE FOR RISK FOR FALLS AND INSTRUCT IN FALL PREVENTION, HOME SAFETY, MEDICATION MANAGEMENT, INFECTION PREVENTION, AND NUTRITION MANAGEMENT. RN/DIRECTOR OF PSYCHOLOGY/OIL FIRE SPECIALIST NURSE MAY PERFORM O2 SATURATION LEVEL ON ADMISSION AND PRN FOR RN TO ASSESS/DIRECTOR OF PSYCHOLOGY TO OBSERVE PATIENT, WITH NOTIFICATION TO THE PHYSICIAN IF SATURATION IS 90% IN THE ABSENCE OF MORE SPECIFIC PARAMETERS FROM THE PHYSICIAN. AGENCY MAY PERFORM A RESUMPTION OF CARE VISIT FOLLOWING ANY HOSPITAL ADMISSION. RN/DIRECTOR OF PSYCHOLOGY/OIL FIRE SPECIALIST TO MONITOR CO-MORBID CONDITIONS LISTED ON THE PLAN OF CARE AND ANY NEW CONDITIONS THAT PRESENT THEMSELVES DURING THIS EPISODE TO IDENTIFY CHANGES AND INTERVENE TO MINIMIZE COMPLICATIONS. [code = RN TO OBSERVE, ASSESS, EVALUATE, AND DEVELOP AN INDIVIDUALIZED PLAN OF CARE. AGENCY MAY ACCEPT ORDERS FROM CONSULTING PHYSICIANS RN TO OBSERVE AND ASSESS, DIRECTOR OF PSYCHOLOGY/OIL FIRE SPECIALIST TO OBSERVE FOR RISK FOR FALLS AND INSTRUCT IN FALL PREVENTION, HOME SAFETY, MEDICATION MANAGEMENT, INFECTION PREVENTION, AND NUTRITION MANAGEMENT. RN/DIRECTOR OF PSYCHOLOGY/OIL FIRE SPECIALIST NURSE MAY PERFORM O2 SATURATION LEVEL ON ADMISSION AND PRN FOR RN TO ASSESS/DIRECTOR OF PSYCHOLOGY TO OBSERVE PATIENT, WITH NOTIFICATION TO THE PHYSICIAN IF SATURATION IS 90% IN THE ABSENCE OF MORE SPECIFIC PARAMETERS FROM THE PHYSICIAN. AGENCY MAY PERFORM A RESUMPTION OF CARE VISIT FOLLOWING ANY HOSPITAL ADMISSION. RN/DIRECTOR OF PSYCHOLOGY/OIL FIRE SPECIALIST TO MONITOR CO-MORBID CONDITIONS LISTED ON THE PLAN OF CARE AND ANY NEW CONDITIONS THAT PRESENT THEMSELVES DURING THIS EPISODE TO IDENTIFY CHANGES AND INTERVENE TO MINIMIZE COMPLICATIONS.] Future Scheduled Test PAIN MANAG EMENT; RN TO ASSESS AND TEACH, OIL FIRE SPECIALIST/DIRECTOR OF PSYCHOLOGY TO OBSERVE AND TEACH AND PROVIDE EDUCATION ON PAIN MANAGEMENT TECHNIQUES. [code = PAIN MANAGEMENT; RN TO ASSESS AND TEACH, OIL FIRE SPECIALIST/DIRECTOR OF PSYCHOLOGY TO OBSERVE AND TEACH AND PROVIDE EDUCATION ON PAIN MANAGEMENT TECHNIQUES.] Future Scheduled Test RISK FOR H OSPITALIZATION; RN TO ASSESS/TEACH, OIL FIRE SPECIALIST/DIRECTOR OF PSYCHOLOGY TO OBSERVE/TEACH PATIENT/CAREGIVER ON RISK FOR HOSPITALIZATION/EMERGENCY ROOM VISITS, TEACH SIGNS AND SYMPTOMS THAT PUT PATIENT AT RISK, WHEN TO NOTIFY NURSE/PHYSICIAN OF COMPLICATIONS/DECLINE, AND WHEN TO CALL 911. [code = RISK FOR HOSPITALIZATION; RN TO ASSESS/TEACH, OIL FIRE SPECIALIST/DIRECTOR OF PSYCHOLOGY TO OBSERVE/TEACH PATIENT/CAREGIVER ON RISK FOR HOSPITALIZATION/EMERGENCY ROOM VISITS, TEACH SIGNS AND SYMPTOMS THAT PUT PATIENT AT RISK, WHEN TO NOTIFY NURSE/PHYSICIAN OF COMPLICATIONS/DECLINE, AND WHEN TO CALL 911.] Future Scheduled Test CARDIOVASC ULAR SYSTEM; RN TO ASSESS/TEACH, DIRECTOR OF PSYCHOLOGY/OIL FIRE SPECIALIST TO OBSERVE/TEACH RELATED TO ALTERED CARDIOVASCULAR STATUS TO MINIMIZE COMPLICATIONS AND REDUCE HOSPITALIZATION. [code = CARDIOVASCULAR SYSTEM; RN TO ASSESS/TEACH, DIRECTOR OF PSYCHOLOGY/OIL FIRE SPECIALIST TO OBSERVE/TEACH RELATED TO ALTERED CARDIOVASCULAR STATUS TO MINIMIZE COMPLICATIONS AND REDUCE HOSPITALIZATION.] Future Scheduled Test HYPERTENSI ON MANAGEMENT; RN TO ASSESS AND TEACH, DIRECTOR OF PSYCHOLOGY/OIL FIRE SPECIALIST TO OBSERVE AND TEACH WARNING SIGNS AND SYMPTOMS TO AVOID HOSPITALIZATION. [code = HYPERTENSION MANAGEMENT; RN TO ASSESS AND TEACH, DIRECTOR OF PSYCHOLOGY/OIL FIRE SPECIALIST TO OBSERVE AND TEACH WARNING SIGNS AND SYMPTOMS TO AVOID HOSPITALIZATION.] Future Scheduled Test HEART FAIL URE MONITORING RN/OIL FIRE SPECIALIST/DIRECTOR OF PSYCHOLOGY TO MONITOR PATIENT FOR SIGNS AND SYMPTOMS OF HEART FAILURE EXACERBATION, MONITOR FOR ADHERENCE WITH MEDICATION AND HEART FAILURE MANAGEMENT REGIMEN. [code = HEART FAILURE MONITORING RN/OIL FIRE SPECIALIST/DIRECTOR OF PSYCHOLOGY TO MONITOR PATIENT FOR SIGNS AND SYMPTOMS OF HEART FAILURE EXACERBATION, MONITOR FOR ADHERENCE WITH MEDICATION AND HEART FAILURE MANAGEMENT REGIMEN.] Future Scheduled Test DIABETES M ONITORING RN/OIL FIRE SPECIALIST/DIRECTOR OF PSYCHOLOGY TO MONITOR BLOOD SUGAR LOG FOR BLOOD SUGAR READINGS THAT ARE BEING CHECKED BY PATIENT, CAREGIVER NEEDED FOR SIGNS AND SYMPTOMS OF HYPER/HYPOGLYCEMIA. PATIENT THERAPEUTIC BLOOD SUGAR PARAMETERS ARE 70 - 300. REPORT BLOOD SUGARS OUT OF RANGE TO PHYSICIAN. NURSE MAY PERFORM FINGER STICK BLOOD GLUCOSE NEEDED FOR SIGNS AND SYMPTOMS OF HYPO AND HYPERGLYCEMIA. RN/OIL FIRE SPECIALIST/DIRECTOR OF PSYCHOLOGY TO MONITOR ADHERENCE OF PATIENT/CAREGIVER PERFORMING DIABETIC FOOT CARE AND MAY PERFORM DIABETIC FOOT CARE PRN. RN/OIL FIRE SPECIALIST/DIRECTOR OF PSYCHOLOGY TO MONITOR FOR ADHERENCE TO DIABETIC SELF-CARE AND MANAGEMENT INCLUDING MEDICATIONS. [code = DIABETES MONITORING RN/OIL FIRE SPECIALIST/DIRECTOR OF PSYCHOLOGY TO MONITOR BLOOD SUGAR LOG FOR BLOOD SUGAR READINGS THAT ARE BEING CHECKED BY PATIENT, CAREGIVER NEEDED FOR SIGNS AND SYMPTOMS OF HYPER/HYPOGLYCEMIA. PATIENT THERAPEUTIC BLOOD SUGAR PARAMETERS ARE 70 - 300. REPORT BLOOD SUGARS OUT OF RANGE TO PHYSICIAN. NURSE MAY PERFORM FINGER STICK BLOOD GLUCOSE NEEDED FOR SIGNS AND SYMPTOMS OF HYPO AND HYPERGLYCEMIA. RN/OIL FIRE SPECIALIST/DIRECTOR OF PSYCHOLOGY TO MONITOR ADHERENCE OF PATIENT/CAREGIVER PERFORMING DIABETIC FOOT CARE AND MAY PERFORM DIABETIC FOOT CARE PRN. RN/OIL FIRE SPECIALIST/DIRECTOR OF PSYCHOLOGY TO MONITOR FOR ADHERENCE TO DIABETIC SELF-CARE AND MANAGEMENT INCLUDING MEDICATIONS.] Future Scheduled Test HYPOTENSIO N MANAGEMENT; RN TO ASSESS AND TEACH/ DIRECTOR OF PSYCHOLOGY /OIL FIRE SPECIALIST TO OBSERVE AND TEACH WARNING SIGNS AND SYMPTOMS TO AVOID HOSPITALIZATION. [code = HYPOTENSION MANAGEMENT; RN TO ASSESS AND TEACH/ DIRECTOR OF PSYCHOLOGY /OIL FIRE SPECIALIST TO OBSERVE AND TEACH WARNING SIGNS AND SYMPTOMS TO AVOID HOSPITALIZATION.] Future Scheduled Test ARRHYTHMIA MANAGEMENT; RN TO ASSESS AND TEACH, DIRECTOR OF PSYCHOLOGY/OIL FIRE SPECIALIST TO OBSERVE AND TEACH WARNING SIGNS AND SYMPTOMS TO AVOID HOSPITALIZATION. [code = ARRHYTHMIA MANAGEMENT; RN TO ASSESS AND TEACH, DIRECTOR OF PSYCHOLOGY/OIL FIRE SPECIALIST TO OBSERVE AND TEACH WARNING SIGNS AND SYMPTOMS TO AVOID HOSPITALIZATION.] Future Scheduled Test MEDICATION MANAGEMENT; RN/DIRECTOR OF PSYCHOLOGY/OIL FIRE SPECIALIST TO REVIEW MEDICATIONS FOR INTERACTIONS, EFFECTIVENESS OF DRUG THERAPY, AND SIGNS/SYMPTOMS OF ADVERSE REACTIONS. MAY INSTRUCT AND REINFORCE MEDICATION TEACHING RELATED TO THE USE OF MEDICATIONS, DOSAGE, FREQUENCY, PURPOSE, SIDE EFFECTS, AND TO REPORT COMPLICATIONS. [code = MEDICATION MANAGEMENT; RN/DIRECTOR OF PSYCHOLOGY/OIL FIRE SPECIALIST TO REVIEW MEDICATIONS FOR INTERACTIONS, EFFECTIVENESS OF [...] EVAL UATE, OBSERVE / ASSESS, AND MONITOR, FELT HAT INSPECTOR AND PACKER TO OBSERVE AND MONITOR, PROVIDE SKILLED THERAPEUTIC INTERVENTION, ACTIVITY, EDUCATION, AND TRAINING TO ADDRESS GEN. WEAKNESS, POOR OVERALL ACTIVITY TOLERANCE, AND FUNCTIONAL LIMITATIONS IMPACTING SAFETY AND INDEPENDENCE. BED MOBILITY (PT/FELT HAT INSPECTOR AND PACKER) PT/FELT HAT INSPECTOR AND PACKER TO PROVIDE GAIT TRAINING FOR IMPROVED MOBILITY AND /OR TO NORMALIZE GAIT PATTERN THERAPEUTIC EXERCISES AND ESTABLISHING A HOME EXERCISE PROGRAM (PT/FELT HAT INSPECTOR AND PACKER) PT/FELT HAT INSPECTOR AND PACKER TO PROVIDE STAIR TRAINING PT / FELT HAT INSPECTOR AND PACKER TO MONITOR AND EDUCATE ON OXYGEN SATURATION DURING ADLS/IADLS, NOTIFY PHYSICIAN AND/OR THE RN CLINICAL AUTOMOBILE MECHANIC ASSISTANT FOR PHYSICIAN NOTIFICATION AND IF O2 SATS BELOW PHYSICIAN ORDERED PARAMETERS AFTER 10 MIN OF REST PT / FELT HAT INSPECTOR AND PACKER TO OBSERVE FOR EARLY SIGNS AND SYMPTOMS OF DEPRESSION OR DEPRESSION GETTING WORSE AND TO EDUCATE ON HOW TO FIND HELP. PT / FELT HAT INSPECTOR AND PACKER MAY EDUCATE ON PAIN MANAGEMENT CLINICALLY INDICATED, INCLUDING NON-PHARMACOLOGICAL PAIN REDUCTION TECHNIQUES PT / FELT HAT INSPECTOR AND PACKER TO MONITOR FOR HYPO/HYPERGLYCEMIA AND CONDUCT ROUTINE FOOT INSPECTIONS. RECORD PATIENT REPORTED BLOOD SUGAR LEVELS AND NOTIFY PHYSICIAN AND/OR THE RN CLINICAL AUTOMOBILE MECHANIC ASSISTANT FOR PHYSICIAN NOTIFICATION IF BLOOD SUGAR LEVELS ARE OUTSIDE ORDERED PARAMETERS. TEACH PATIENT/CAREGIVER ON DAILY FOOT INSPECTIONS PT / FELT HAT INSPECTOR AND PACKER TO INSTRUCT PATIENT/CAREGIVER ON RISK FOR HOSPITALIZATION/EMERGENCY ROOM VISITS, TEACH SIGNS AND SYMPTOMS THAT PUT PATIENT AT RISK, WHEN TO NOTIFY NURSE/PHYSICIAN OF COMPLICATIONS/DECLINE, AND WHEN TO CALL 911. PT/FELT HAT INSPECTOR AND PACKER TO EDUCATE ON ARTHRITIS SELF-MANAGEMENT PT / FELT HAT INSPECTOR AND PACKER TO EDUCATE ON HEART FAILURE SELF-MANAGEMENT PT / FELT HAT INSPECTOR AND PACKER TO EDUCATE ON HYPERTENSION SELF-MANAGEMENT PT TO ASSESS / FELT HAT INSPECTOR AND PACKER TO MONITOR CARDIO/RESPIRATORY SYSTEM; AND NOTIFY THE PHYSICIAN AND/OR THE RN CLINICAL AUTOMOBILE MECHANIC ASSISTANT FOR PHYSICIAN NOTIFICATION FOR EARLY SIGNS AND SYMPTOMS OF EXACERBATION OR DETERIORATION. PT / FELT HAT INSPECTOR AND PACKER TO EDUCATE ON ATRIAL FIBRILLATION SELF-MANAGEMENT. PT / FELT HAT INSPECTOR AND PACKER TO EDUCATE ON PNEUMONIA / ASPIRATION PNEUMONIA SELF-MANAGEMENT. PT/FELT HAT INSPECTOR AND PACKER TO IDENTIFY FALL RISK FACTORS; EDUCATE THE PATIENT/CAREGIVER ON WAYS TO REDUCE FALL RISK FACTORS AND ESTABLISH HOME EXERCISE PROGRAM TO MINIMIZE FALL RISK. MAY TEACH THE PATIENT FLOOR RECOVERY WHEN CLINICALLY APPROPRIATE [code = PT TO EVALUATE, OBSERVE / ASSESS, AND MONITOR, FELT HAT INSPECTOR AND PACKER TO OBSERVE AND MONITOR, PROVIDE SKILLED THERAPEUTIC INTERVENTION, ACTIVITY, EDUCATION, AND TRAINING TO ADDRESS GEN. WEAKNESS, POOR OVERALL ACTIVITY TOLERANCE, AND FUNCTIONAL LIMITATIONS IMPACTING SAFETY AND INDEPENDENCE. BED MOBILITY (PT/FELT HAT INSPECTOR AND PACKER) PT/FELT HAT INSPECTOR AND PACKER TO PROVIDE GAIT TRAINING FOR IMPROVED MOBILITY AND /OR TO NORMALIZE GAIT PATTERN THERAPEUTIC EXERCISES AND ESTABLISHING A HOME EXERCISE PROGRAM (PT/FELT HAT INSPECTOR AND PACKER) PT/FELT HAT INSPECTOR AND PACKER TO PROVIDE STAIR TRAINING PT / FELT HAT INSPECTOR AND PACKER TO MONITOR AND EDUCATE ON OXYGEN SATURATION DURING ADLS/IADLS, NOTIFY PHYSICIAN AND/OR THE RN CLINICAL AUTOMOBILE MECHANIC ASSISTANT FOR PHYSICIAN NOTIFICATION AND IF O2 SATS BELOW PHYSICIAN ORDERED PARAMETERS AFTER 10 MIN OF REST PT / FELT HAT INSPECTOR AND PACKER TO OBSERVE FOR EARLY SIGNS AND SYMPTOMS OF DEPRESSION OR DEPRESSION GETTING WORSE AND TO EDUCATE ON HOW TO FIND HELP. PT / FELT HAT INSPECTOR AND PACKER MAY EDUCATE ON PAIN MANAGEMENT CLINICALLY INDICATED, INCLUDING NON-PHARMACOLOGICAL PAIN REDUCTION TECHNIQUES PT / FELT HAT INSPECTOR AND PACKER TO MONITOR FOR HYPO/HYPERGLYCEMIA AND CONDUCT ROUTINE FOOT INSPECTIONS. RECORD PATIENT REPORTED BLOOD SUGAR LEVELS AND NOTIFY PHYSICIAN AND/OR THE RN CLINICAL AUTOMOBILE MECHANIC ASSISTANT FOR PHYSICIAN NOTIFICATION IF BLOOD SUGAR LEVELS ARE OUTSIDE ORDERED PARAMETERS. TEACH PATIENT/CAREGIVER ON DAILY FOOT INSPECTIONS PT / FELT HAT INSPECTOR AND PACKER TO INSTRUCT PATIENT/CAREGIVER ON RISK FOR HOSPITALIZATION/EMERGENCY ROOM VISITS, TEACH SIGNS AND SYMPTOMS THAT PUT PATIENT AT RISK, WHEN TO NOTIFY NURSE/PHYSICIAN OF COMPLICATIONS/DECLINE, AND WHEN TO CALL 911. PT/FELT HAT INSPECTOR AND PACKER TO EDUCATE ON ARTHRITIS SELF-MANAGEMENT PT / FELT HAT INSPECTOR AND PACKER TO EDUCATE ON HEART FAILURE SELF-MANAGEMENT PT / FELT HAT INSPECTOR AND PACKER TO EDUCATE ON HYPERTENSION SELF-MANAGEMENT PT TO ASSESS / FELT HAT INSPECTOR AND PACKER TO MONITOR CARDIO/RESPIRATORY SYSTEM; AND NOTIFY THE PHYSICIAN AND/OR THE RN CLINICAL AUTOMOBILE MECHANIC ASSISTANT FOR PHYSICIAN NOTIFICATION FOR EARLY SIGNS AND SYMPTOMS OF EXACERBATION OR DETERIORATION. PT / FELT HAT INSPECTOR AND PACKER TO EDUCATE ON ATRIAL FIBRILLATION SELF-MANAGEMENT. PT / FELT HAT INSPECTOR AND PACKER TO EDUCATE ON PNEUMONIA / ASPIRATION PNEUMONIA SELF-MANAGEMENT. PT/FELT HAT INSPECTOR AND PACKER TO IDENTIFY FALL RISK FACTORS; EDUCATE THE PATIENT/CAREGIVER ON WAYS TO REDUCE FALL RISK FACTORS AND ESTABLISH HOME EXERCISE PROGRAM TO MINIMIZE FALL RISK. MAY TEACH THE PATIENT FLOOR RECOVERY WHEN CLINICALLY APPROPRIATE] Future Scheduled Test AGENCY MAY PERFORM A RESUMPTION OF CARE VISIT FOLLOWING ANY HOSPITAL ADMISSION. OT TO EVALUATE, OBSERVE / ASSESS, AND MONITOR, AIRFREIGHT LOADING SUPERVISOR TO OBSERVE AND MONITOR, PROVIDE SKILLED THERAPEUTIC INTERVENTION, ACTIVITY, EDUCATION, AND TRAINING TO ADDRESS SAFETY AND INDEPENDENCE OF ADLS AND FUNCTIONAL TRANSFERS IN HOME ENVIRONMENT. ACTIVITIES OF DAILY LIVING (OT/MARIANNE) THERAPEUTIC EXERCISE (OT/AIRFREIGHT LOADING SUPERVISOR) ENERGY CONSERVATION/ACTIVITY DEMAND (OT/AIRFREIGHT LOADING SUPERVISOR) OT/AIRFREIGHT LOADING SUPERVISOR TO MONITOR AND EDUCATE ON OXYGEN SATURATION DURING ADLS/IADLS, NOTIFY PHYSICIAN AND/OR THE RN CLINICAL AUTOMOBILE MECHANIC ASSISTANT FOR PHYSICIAN NOTIFICATION AND IF O2 SATS BELOW 90% AFTER 10 MIN OF REST. OT / AIRFREIGHT LOADING SUPERVISOR TO IDENTIFY FALL RISK FACTORS; EDUCATE THE PATIENT/CAREGIVER ON WAYS TO REDUCE FALL RISK FACTORS AND ESTABLISH HOME EXERCISE PROGRAM TO MINIMIZE FALL RISK. MAY TEACH THE PATIENT FLOOR RECOVERY WHEN CLINICALLY APPROPRIATE. OT/AIRFREIGHT LOADING SUPERVISOR TO EDUCATE ON HYPERTENSION SELF-MANAGEMENT OT/MARIANNE TO EDUCATE ON ATRIAL FIBRILLATION SELF-MANAGEMENT. [code = AGENCY MAY PERFORM A RESUMPTION OF CARE VISIT FOLLOWING ANY HOSPITAL ADMISSION. OT TO EVALUATE, OBSERVE / ASSESS, AND MONITOR, AIRFREIGHT LOADING SUPERVISOR TO OBSERVE AND MONITOR, PROVIDE SKILLED THERAPEUTIC INTERVENTION, ACTIVITY, EDUCATION, AND TRAINING TO ADDRESS SAFETY AND INDEPENDENCE OF ADLS AND FUNCTIONAL TRANSFERS IN HOME ENVIRONMENT. ACTIVITIES OF DAILY LIVING (OT/MARIANNE) THERAPEUTIC EXERCISE (OT/AIRFREIGHT LOADING SUPERVISOR) ENERGY CONSERVATION/ACTIVITY DEMAND (OT/MARIANNE) OT/AIRFREIGHT LOADING SUPERVISOR TO MONITOR AND EDUCATE ON OXYGEN SATURATION DURING ADLS/IADLS, NOTIFY PHYSICIAN AND/OR THE RN CLINICAL AUTOMOBILE MECHANIC ASSISTANT FOR PHYSICIAN NOTIFICATION AND IF O2 SATS BELOW 90% AFTER 10 MIN OF REST. OT / MARIANNE TO IDENTIFY FALL RISK FACTORS; EDUCATE THE PATIENT/CAREGIVER ON WAYS TO REDUCE FALL RISK FACTORS AND ESTABLISH HOME EXERCISE PROGRAM TO MINIMIZE FALL RISK. MAY TEACH THE PATIENT FLOOR RECOVERY WHEN CLINICALLY APPROPRIATE. OT/AIRFREIGHT LOADING SUPERVISOR TO EDUCATE ON HYPERTENSION SELF-MANAGEMENT OT/MARIANNE TO [...] OF SKIN INTEGRITY ISSUES FROM SBA TO MA WITHIN 2 WKS. PT STG: PATIENT WILL [...] TO SAFELY NEGOTIATE STAIRS FROM SBA TO MA WITH 2 STEPS W/O HANDRAIL VIA FRONT [...] Date/Time Encounter Type Admission Type Attending [facility] Care Department Encounter ID Discharge Date Discharge Status Discharge Condition Discharge Reason Percent Goals Met 2025-02-07 00:00:00 2025-04-07 00:00:00 Outpatient NEW ADMISSION [facility] [id number]
--- OUTSIDE RECORDS SUMMARY | 2025-04-06 18:00 | XMS_ITS | Clinical Summary ---
Author Organization Unknown Care Team Providers Care Regional Vice President Life Sales Name Role Phone DIGNA ARIEL, ESTRELLA Unavailable Unava dinora STOKES RN, FRANKIE Unavailable Unavailabl e KARI PT, DIDI Unavailable Unavailable NAT CORPORATE RISK ANALYST, GAUDENCIO Unavailable Unavailabl e RADHA OT, ROLANDO Unavailable Unavailable JOANNE STEVEN, HATTIE Unavailable Unavailable Payers Payer Name Policy Type Policy Number Effective Date Expira tion Date MEDICARE.[facility] [id number] Problems Condition Name Condition Details Condition Category Status Onset Date Resolution Date Last Treatment Date Treating Clinician Comments 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 Active 02-07 [...] OF PNEUMONIA (RECURRENT) Active 02-07 00:00: 00 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 AND COLLECTIONS (CURRENT) USE OF SYSTEMIC STEROIDS Active 02-07 [...] 80 mg tablet 02-07 00:00: 00 Yes [id number] CHOLESTEROL 1 tablet DAILY 1 tablet DAILY (route: oral) Med Classific ation: Cardiovas cular Therapy Agents digoxin 125 mcg (0.125 mg) tablet 02-07 00:00: 00 02-21 23:59 :00 No [id number] HEART RHYTHM 1 tablet DAILY 1 tablet DAILY (route: oral) Med Classific ation: Cardiovas cular Therapy Agents escitalopra m 10 mg tablet 02-07 00:00: 00 Yes [id number] MOOD 1 tablet DAILY 1 tablet DAILY (route: oral) Med Classific ation: Central Nervous System Agents ezetimibe 10 mg tablet 02-07 00:00: 00 Yes [id number] CHOLESTEROL 1 tablet DAILY 1 tablet DAILY (route: oral) Med Classific ation: Cardiovas cular Therapy Agents metoprolol succinate ER 25 mg tablet,exte nded release 24 hr 02-07 00:00: 00 02-21 23:59 :00 No [id number] BLOOD PRESSURE 0.5 tablet DAILY 0.5 tablet DAILY (route: oral) Med Classific ation: Cardiovas cular Therapy Agents pantoprazol e 40 mg tablet,joão yed release 02-07 00:00: 00 02-21 23:59 :00 No [id number] STOMACH ACID 1 tablet DAILY 1 tablet DAILY (route: oral) Med Classific ation: Gastroint estinal Therapy Agents prednisone 5 mg tablet 02-07 00:00: 00 Yes [id number] ADRENAL INSUFFICIEN CY 1 tablet DAILY 1 tablet DAILY (route: oral) Med Classific ation: Endocrine spironolact one 25 mg tablet 02-07 00:00: 00 Yes [id number] FLUID RETENTION 0.5 tablet DAILY 0.5 tablet DAILY (route: oral) Med Classific ation: Cardiovas cular Therapy Agents tamsulosin 0.4 mg capsule 02-07 00:00: 00 02-21 23:59 :00 No [id number] URINARY HEALTH 1 capsule DAILY 1 capsule DAILY (route: oral) Med Classific ation: Genitouri nary Therapy acetaminoph en 325 mg tablet 2024-05 00:00: 00 Yes [id number] PAIN 2 tablet 2 TIMES DAILY 2 tablet 2 TIMES DAILY (route: oral) Med Classific ation: Analgesic , Anti-infl ammatory or Antipyret ic aspirin 81 mg tablet 2024-05 00:00: 00 Yes [id number] ANTICOAGULA NT 1 tablet DAILY 1 tablet DAILY (route: oral) Med Classific ation: Hematolog ical Agents ipratropium 0.5 mg-albutero l 3 mg (2.5 mg base)/3 mL nebulizatio n soln 2024-05 00:00: 00 Yes [id number] COPD 3 mL EVERY 6 HOURS 3 mL EVERY 6 HOURS (route: inhalation ) Med Classific ation: Respirato ry Therapy Agents Lanoxin 62.5 mcg (0.0625 mg) tablet 2024-05 00:00: 00 Yes [id number] CHF 1 tablet DAILY 1 tablet DAILY (route: oral) Med Classific ation: Cardiovas cular Therapy Agents Lasix 20 mg tablet 2024-05 00:00: 00 Yes [id number] CHF 1 tablet DAILY 1 tablet DAILY (route: oral) Med Classific ation: Cardiovas cular Therapy Agents Toprol XL 25 mg tablet,exte nded release 2024-05 00:00: 00 Yes [id number] BP 25 mg DAILY 25 mg DAILY [...] SYSTEM MANAGEMENT; RN TO ASSESS AND TEACH, DEICER REPAIRER PNEUMATIC/AG SERVICE MANAGER TO OBSERVE AND TEACH RELATED TO ALTERED RESPIRATORY STATUS TO MINIMIZE COMPLICATIONS AND REDUCE HOSPITALIZATION. [code = SN 1WK9 PT 1WK1 OT EFFECTIVE 02/10/2025K1 RESPIRATORY SYSTEM MANAGEMENT; RN TO ASSESS AND TEACH, DEICER REPAIRER PNEUMATIC/AG SERVICE MANAGER TO OBSERVE AND TEACH RELATED TO ALTERED RESPIRATORY STATUS TO MINIMIZE COMPLICATIONS AND REDUCE HOSPITALIZATION.] Future Scheduled Test TRACHEOSTO MY CARE MANAGEMENT; RN/DEICER REPAIRER PNEUMATIC/AG SERVICE MANAGER TO INSTRUCT PATIENT/CAREGIVER ON CARE AND MANAGEMENT OF TRACHEOSTOMY. RN/ DEICER REPAIRER PNEUMATIC/AG SERVICE MANAGER TO PROVIDE SKILLED TEACHING ON TRACH COLLAR SUCTIONING PRN WITH 14 FR SUCTION CATHETER PER PATIENT TRACH CARE WITH INNER CANNULA: REMOVE INNER CANNULA, CLEANSE WITH NORMAL SALINE AND OR STERILE WATER AND REINSERT NON-DISPOSABLE CANNULA SIZE OF INNER CANNULA 5 BROOKS [code = TRACHEOSTOMY CARE MANAGEMENT; RN/DEICER REPAIRER PNEUMATIC/AG SERVICE MANAGER TO INSTRUCT PATIENT/CAREGIVER ON CARE AND MANAGEMENT OF TRACHEOSTOMY. RN/ DEICER REPAIRER PNEUMATIC/AG SERVICE MANAGER TO PROVIDE SKILLED TEACHING ON TRACH COLLAR SUCTIONING PRN WITH 14 FR SUCTION CATHETER PER PATIENT TRACH CARE WITH INNER CANNULA: REMOVE INNER CANNULA, CLEANSE WITH NORMAL SALINE AND OR STERILE WATER AND REINSERT NON-DISPOSABLE CANNULA SIZE OF INNER CANNULA 5 BROOKS] Future Scheduled Test FALL REDUC TION MANAGEMENT; RN TO ASSESS AND OBSERVE, DEICER REPAIRER PNEUMATIC/AG SERVICE MANAGER TO OBSERVE FALL RISK FACTORS AND EDUCATE PATIENT/CAREGIVER ON STRATEGIES TO MINIMIZE THE RISK OF FALLING. [code = FALL REDUCTION MANAGEMENT; RN TO ASSESS AND OBSERVE, DEICER REPAIRER PNEUMATIC/AG SERVICE MANAGER TO OBSERVE FALL RISK FACTORS AND EDUCATE PATIENT/CAREGIVER ON STRATEGIES TO MINIMIZE THE RISK OF FALLING.] Future Scheduled Test ANEMIA MAN AGEMENT; RN TO ASSESS AND TEACH, AG SERVICE MANAGER/DEICER REPAIRER PNEUMATIC TO OBSERVE AND TEACH AND PROVIDE EDUCATION ON ANEMIA. [code = ANEMIA MANAGEMENT; RN TO ASSESS AND TEACH, AG SERVICE MANAGER/DEICER REPAIRER PNEUMATIC TO OBSERVE AND TEACH AND PROVIDE EDUCATION ON ANEMIA.] Future Scheduled Test RN TO OBSE RVE, ASSESS, EVALUATE, AND DEVELOP AN INDIVIDUALIZED PLAN OF CARE. AGENCY MAY ACCEPT ORDERS FROM CONSULTING PHYSICIANS RN TO OBSERVE AND ASSESS, DEICER REPAIRER PNEUMATIC/AG SERVICE MANAGER TO OBSERVE FOR RISK FOR FALLS AND INSTRUCT IN FALL PREVENTION, HOME SAFETY, MEDICATION MANAGEMENT, INFECTION PREVENTION, AND NUTRITION MANAGEMENT. RN/DEICER REPAIRER PNEUMATIC/AG SERVICE MANAGER NURSE MAY PERFORM O2 SATURATION LEVEL ON ADMISSION AND PRN FOR RN TO ASSESS/DEICER REPAIRER PNEUMATIC TO OBSERVE PATIENT, WITH NOTIFICATION TO THE PHYSICIAN IF SATURATION IS 90% IN THE ABSENCE OF MORE SPECIFIC PARAMETERS FROM THE PHYSICIAN. AGENCY MAY PERFORM A RESUMPTION OF CARE VISIT FOLLOWING ANY HOSPITAL ADMISSION. RN/DEICER REPAIRER PNEUMATIC/AG SERVICE MANAGER TO MONITOR CO-MORBID CONDITIONS LISTED ON THE PLAN OF CARE AND ANY NEW CONDITIONS THAT PRESENT THEMSELVES DURING THIS EPISODE TO IDENTIFY CHANGES AND INTERVENE TO MINIMIZE COMPLICATIONS. [code = RN TO OBSERVE, ASSESS, EVALUATE, AND DEVELOP AN INDIVIDUALIZED PLAN OF CARE. AGENCY MAY ACCEPT ORDERS FROM CONSULTING PHYSICIANS RN TO OBSERVE AND ASSESS, DEICER REPAIRER PNEUMATIC/AG SERVICE MANAGER TO OBSERVE FOR RISK FOR FALLS AND INSTRUCT IN FALL PREVENTION, HOME SAFETY, MEDICATION MANAGEMENT, INFECTION PREVENTION, AND NUTRITION MANAGEMENT. RN/DEICER REPAIRER PNEUMATIC/AG SERVICE MANAGER NURSE MAY PERFORM O2 SATURATION LEVEL ON ADMISSION AND PRN FOR RN TO ASSESS/DEICER REPAIRER PNEUMATIC TO OBSERVE PATIENT, WITH NOTIFICATION TO THE PHYSICIAN IF SATURATION IS 90% IN THE ABSENCE OF MORE SPECIFIC PARAMETERS FROM THE PHYSICIAN. AGENCY MAY PERFORM A RESUMPTION OF CARE VISIT FOLLOWING ANY HOSPITAL ADMISSION. RN/DEICER REPAIRER PNEUMATIC/AG SERVICE MANAGER TO MONITOR CO-MORBID CONDITIONS LISTED ON THE PLAN OF CARE AND ANY NEW CONDITIONS THAT PRESENT THEMSELVES DURING THIS EPISODE TO IDENTIFY CHANGES AND INTERVENE TO MINIMIZE COMPLICATIONS.] Future Scheduled Test PAIN MANAG EMENT; RN TO ASSESS AND TEACH, AG SERVICE MANAGER/DEICER REPAIRER PNEUMATIC TO OBSERVE AND TEACH AND PROVIDE EDUCATION ON PAIN MANAGEMENT TECHNIQUES. [code = PAIN MANAGEMENT; RN TO ASSESS AND TEACH, AG SERVICE MANAGER/DEICER REPAIRER PNEUMATIC TO OBSERVE AND TEACH AND PROVIDE EDUCATION ON PAIN MANAGEMENT TECHNIQUES.] Future Scheduled Test RISK FOR H OSPITALIZATION; RN TO ASSESS/TEACH, AG SERVICE MANAGER/DEICER REPAIRER PNEUMATIC TO OBSERVE/TEACH PATIENT/CAREGIVER ON RISK FOR HOSPITALIZATION/EMERGENCY ROOM VISITS, TEACH SIGNS AND SYMPTOMS THAT PUT PATIENT AT RISK, WHEN TO NOTIFY NURSE/PHYSICIAN OF COMPLICATIONS/DECLINE, AND WHEN TO CALL 911. [code = RISK FOR HOSPITALIZATION; RN TO ASSESS/TEACH, AG SERVICE MANAGER/DEICER REPAIRER PNEUMATIC TO OBSERVE/TEACH PATIENT/CAREGIVER ON RISK FOR HOSPITALIZATION/EMERGENCY ROOM VISITS, TEACH SIGNS AND SYMPTOMS THAT PUT PATIENT AT RISK, WHEN TO NOTIFY NURSE/PHYSICIAN OF COMPLICATIONS/DECLINE, AND WHEN TO CALL 911.] Future Scheduled Test CARDIOVASC ULAR SYSTEM; RN TO ASSESS/TEACH, DEICER REPAIRER PNEUMATIC/AG SERVICE MANAGER TO OBSERVE/TEACH RELATED TO ALTERED CARDIOVASCULAR STATUS TO MINIMIZE COMPLICATIONS AND REDUCE HOSPITALIZATION. [code = CARDIOVASCULAR SYSTEM; RN TO ASSESS/TEACH, DEICER REPAIRER PNEUMATIC/AG SERVICE MANAGER TO OBSERVE/TEACH RELATED TO ALTERED CARDIOVASCULAR STATUS TO MINIMIZE COMPLICATIONS AND REDUCE HOSPITALIZATION.] Future Scheduled Test HYPERTENSI ON MANAGEMENT; RN TO ASSESS AND TEACH, DEICER REPAIRER PNEUMATIC/AG SERVICE MANAGER TO OBSERVE AND TEACH WARNING SIGNS AND SYMPTOMS TO AVOID HOSPITALIZATION. [code = HYPERTENSION MANAGEMENT; RN TO ASSESS AND TEACH, DEICER REPAIRER PNEUMATIC/AG SERVICE MANAGER TO OBSERVE AND TEACH WARNING SIGNS AND SYMPTOMS TO AVOID HOSPITALIZATION.] Future Scheduled Test HEART FAIL URE MONITORING RN/AG SERVICE MANAGER/DEICER REPAIRER PNEUMATIC TO MONITOR PATIENT FOR SIGNS AND SYMPTOMS OF HEART FAILURE EXACERBATION, MONITOR FOR ADHERENCE WITH MEDICATION AND HEART FAILURE MANAGEMENT REGIMEN. [code = HEART FAILURE MONITORING RN/AG SERVICE MANAGER/DEICER REPAIRER PNEUMATIC TO MONITOR PATIENT FOR SIGNS AND SYMPTOMS OF HEART FAILURE EXACERBATION, MONITOR FOR ADHERENCE WITH MEDICATION AND HEART FAILURE MANAGEMENT REGIMEN.] Future Scheduled Test DIABETES M ONITORING RN/AG SERVICE MANAGER/DEICER REPAIRER PNEUMATIC TO MONITOR BLOOD SUGAR LOG FOR BLOOD SUGAR READINGS THAT ARE BEING CHECKED BY PATIENT, CAREGIVER NEEDED FOR SIGNS AND SYMPTOMS OF HYPER/HYPOGLYCEMIA. PATIENT THERAPEUTIC BLOOD SUGAR PARAMETERS ARE 70 - 300. REPORT BLOOD SUGARS OUT OF RANGE TO PHYSICIAN. NURSE MAY PERFORM FINGER STICK BLOOD GLUCOSE NEEDED FOR SIGNS AND SYMPTOMS OF HYPO AND HYPERGLYCEMIA. RN/AG SERVICE MANAGER/DEICER REPAIRER PNEUMATIC TO MONITOR ADHERENCE OF PATIENT/CAREGIVER PERFORMING DIABETIC FOOT CARE AND MAY PERFORM DIABETIC FOOT CARE PRN. RN/AG SERVICE MANAGER/DEICER REPAIRER PNEUMATIC TO MONITOR FOR ADHERENCE TO DIABETIC SELF-CARE AND MANAGEMENT INCLUDING MEDICATIONS. [code = DIABETES MONITORING RN/AG SERVICE MANAGER/DEICER REPAIRER PNEUMATIC TO MONITOR BLOOD SUGAR LOG FOR BLOOD SUGAR READINGS THAT ARE BEING CHECKED BY PATIENT, CAREGIVER NEEDED FOR SIGNS AND SYMPTOMS OF HYPER/HYPOGLYCEMIA. PATIENT THERAPEUTIC BLOOD SUGAR PARAMETERS ARE 70 - 300. REPORT BLOOD SUGARS OUT OF RANGE TO PHYSICIAN. NURSE MAY PERFORM FINGER STICK BLOOD GLUCOSE NEEDED FOR SIGNS AND SYMPTOMS OF HYPO AND HYPERGLYCEMIA. RN/AG SERVICE MANAGER/DEICER REPAIRER PNEUMATIC TO MONITOR ADHERENCE OF PATIENT/CAREGIVER PERFORMING DIABETIC FOOT CARE AND MAY PERFORM DIABETIC FOOT CARE PRN. RN/AG SERVICE MANAGER/DEICER REPAIRER PNEUMATIC TO MONITOR FOR ADHERENCE TO DIABETIC SELF-CARE AND MANAGEMENT INCLUDING MEDICATIONS.] Future Scheduled Test HYPOTENSIO N MANAGEMENT; RN TO ASSESS AND TEACH/ DEICER REPAIRER PNEUMATIC /AG SERVICE MANAGER TO OBSERVE AND TEACH WARNING SIGNS AND SYMPTOMS TO AVOID HOSPITALIZATION. [code = HYPOTENSION MANAGEMENT; RN TO ASSESS AND TEACH/ DEICER REPAIRER PNEUMATIC /AG SERVICE MANAGER TO OBSERVE AND TEACH WARNING SIGNS AND SYMPTOMS TO AVOID HOSPITALIZATION.] Future Scheduled Test ARRHYTHMIA MANAGEMENT; RN TO ASSESS AND TEACH, DEICER REPAIRER PNEUMATIC/AG SERVICE MANAGER TO OBSERVE AND TEACH WARNING SIGNS AND SYMPTOMS TO AVOID HOSPITALIZATION. [code = ARRHYTHMIA MANAGEMENT; RN TO ASSESS AND TEACH, DEICER REPAIRER PNEUMATIC/AG SERVICE MANAGER TO OBSERVE AND TEACH WARNING SIGNS AND SYMPTOMS TO AVOID HOSPITALIZATION.] Future Scheduled Test MEDICATION MANAGEMENT; RN/DEICER REPAIRER PNEUMATIC/AG SERVICE MANAGER TO REVIEW MEDICATIONS FOR INTERACTIONS, EFFECTIVENESS OF DRUG THERAPY, AND SIGNS/SYMPTOMS OF ADVERSE REACTIONS. MAY INSTRUCT AND REINFORCE MEDICATION TEACHING RELATED TO THE USE OF MEDICATIONS, DOSAGE, FREQUENCY, PURPOSE, SIDE EFFECTS, AND TO REPORT COMPLICATIONS. [code = MEDICATION MANAGEMENT; RN/DEICER REPAIRER PNEUMATIC/AG SERVICE MANAGER TO REVIEW MEDICATIONS FOR INTERACTIONS, EFFECTIVENESS OF [...] EVAL UATE, OBSERVE / ASSESS, AND MONITOR, CORPORATE RISK ANALYST TO OBSERVE AND MONITOR, PROVIDE SKILLED THERAPEUTIC INTERVENTION, ACTIVITY, EDUCATION, AND TRAINING TO ADDRESS GEN. WEAKNESS, POOR OVERALL ACTIVITY TOLERANCE, AND FUNCTIONAL LIMITATIONS IMPACTING SAFETY AND INDEPENDENCE. BED MOBILITY (PT/CORPORATE RISK ANALYST) PT/CORPORATE RISK ANALYST TO PROVIDE GAIT TRAINING FOR IMPROVED MOBILITY AND /OR TO NORMALIZE GAIT PATTERN THERAPEUTIC EXERCISES AND ESTABLISHING A HOME EXERCISE PROGRAM (PT/CORPORATE RISK ANALYST) PT/CORPORATE RISK ANALYST TO PROVIDE STAIR TRAINING PT / CORPORATE RISK ANALYST TO MONITOR AND EDUCATE ON OXYGEN SATURATION DURING ADLS/IADLS, NOTIFY PHYSICIAN AND/OR THE RN CLINICAL ADMINISTRATION CLERK FOR PHYSICIAN NOTIFICATION AND IF O2 SATS BELOW PHYSICIAN ORDERED PARAMETERS AFTER 10 MIN OF REST PT / CORPORATE RISK ANALYST TO OBSERVE FOR EARLY SIGNS AND SYMPTOMS OF DEPRESSION OR DEPRESSION GETTING WORSE AND TO EDUCATE ON HOW TO FIND HELP. PT / CORPORATE RISK ANALYST MAY EDUCATE ON PAIN MANAGEMENT CLINICALLY INDICATED, INCLUDING NON-PHARMACOLOGICAL PAIN REDUCTION TECHNIQUES PT / CORPORATE RISK ANALYST TO MONITOR FOR HYPO/HYPERGLYCEMIA AND CONDUCT ROUTINE FOOT INSPECTIONS. RECORD PATIENT REPORTED BLOOD SUGAR LEVELS AND NOTIFY PHYSICIAN AND/OR THE RN CLINICAL ADMINISTRATION CLERK FOR PHYSICIAN NOTIFICATION IF BLOOD SUGAR LEVELS ARE OUTSIDE ORDERED PARAMETERS. TEACH PATIENT/CAREGIVER ON DAILY FOOT INSPECTIONS PT / CORPORATE RISK ANALYST TO INSTRUCT PATIENT/CAREGIVER ON RISK FOR HOSPITALIZATION/EMERGENCY ROOM VISITS, TEACH SIGNS AND SYMPTOMS THAT PUT PATIENT AT RISK, WHEN TO NOTIFY NURSE/PHYSICIAN OF COMPLICATIONS/DECLINE, AND WHEN TO CALL 911. PT/CORPORATE RISK ANALYST TO EDUCATE ON ARTHRITIS SELF-MANAGEMENT PT / CORPORATE RISK ANALYST TO EDUCATE ON HEART FAILURE SELF-MANAGEMENT PT / CORPORATE RISK ANALYST TO EDUCATE ON HYPERTENSION SELF-MANAGEMENT PT TO ASSESS / CORPORATE RISK ANALYST TO MONITOR CARDIO/RESPIRATORY SYSTEM; AND NOTIFY THE PHYSICIAN AND/OR THE RN CLINICAL ADMINISTRATION CLERK FOR PHYSICIAN NOTIFICATION FOR EARLY SIGNS AND SYMPTOMS OF EXACERBATION OR DETERIORATION. PT / CORPORATE RISK ANALYST TO EDUCATE ON ATRIAL FIBRILLATION SELF-MANAGEMENT. PT / CORPORATE RISK ANALYST TO EDUCATE ON PNEUMONIA / ASPIRATION PNEUMONIA SELF-MANAGEMENT. PT/CORPORATE RISK ANALYST TO IDENTIFY FALL RISK FACTORS; EDUCATE THE PATIENT/CAREGIVER ON WAYS TO REDUCE FALL RISK FACTORS AND ESTABLISH HOME EXERCISE PROGRAM TO MINIMIZE FALL RISK. MAY TEACH THE PATIENT FLOOR RECOVERY WHEN CLINICALLY APPROPRIATE [code = PT TO EVALUATE, OBSERVE / ASSESS, AND MONITOR, CORPORATE RISK ANALYST TO OBSERVE AND MONITOR, PROVIDE SKILLED THERAPEUTIC INTERVENTION, ACTIVITY, EDUCATION, AND TRAINING TO ADDRESS GEN. WEAKNESS, POOR OVERALL ACTIVITY TOLERANCE, AND FUNCTIONAL LIMITATIONS IMPACTING SAFETY AND INDEPENDENCE. BED MOBILITY (PT/CORPORATE RISK ANALYST) PT/CORPORATE RISK ANALYST TO PROVIDE GAIT TRAINING FOR IMPROVED MOBILITY AND /OR TO NORMALIZE GAIT PATTERN THERAPEUTIC EXERCISES AND ESTABLISHING A HOME EXERCISE PROGRAM (PT/CORPORATE RISK ANALYST) PT/CORPORATE RISK ANALYST TO PROVIDE STAIR TRAINING PT / CORPORATE RISK ANALYST TO MONITOR AND EDUCATE ON OXYGEN SATURATION DURING ADLS/IADLS, NOTIFY PHYSICIAN AND/OR THE RN CLINICAL ADMINISTRATION CLERK FOR PHYSICIAN NOTIFICATION AND IF O2 SATS BELOW PHYSICIAN ORDERED PARAMETERS AFTER 10 MIN OF REST PT / CORPORATE RISK ANALYST TO OBSERVE FOR EARLY SIGNS AND SYMPTOMS OF DEPRESSION OR DEPRESSION GETTING WORSE AND TO EDUCATE ON HOW TO FIND HELP. PT / CORPORATE RISK ANALYST MAY EDUCATE ON PAIN MANAGEMENT CLINICALLY INDICATED, INCLUDING NON-PHARMACOLOGICAL PAIN REDUCTION TECHNIQUES PT / CORPORATE RISK ANALYST TO MONITOR FOR HYPO/HYPERGLYCEMIA AND CONDUCT ROUTINE FOOT INSPECTIONS. RECORD PATIENT REPORTED BLOOD SUGAR LEVELS AND NOTIFY PHYSICIAN AND/OR THE RN CLINICAL ADMINISTRATION CLERK FOR PHYSICIAN NOTIFICATION IF BLOOD SUGAR LEVELS ARE OUTSIDE ORDERED PARAMETERS. TEACH PATIENT/CAREGIVER ON DAILY FOOT INSPECTIONS PT / CORPORATE RISK ANALYST TO INSTRUCT PATIENT/CAREGIVER ON RISK FOR HOSPITALIZATION/EMERGENCY ROOM VISITS, TEACH SIGNS AND SYMPTOMS THAT PUT PATIENT AT RISK, WHEN TO NOTIFY NURSE/PHYSICIAN OF COMPLICATIONS/DECLINE, AND WHEN TO CALL 911. PT/CORPORATE RISK ANALYST TO EDUCATE ON ARTHRITIS SELF-MANAGEMENT PT / CORPORATE RISK ANALYST TO EDUCATE ON HEART FAILURE SELF-MANAGEMENT PT / CORPORATE RISK ANALYST TO EDUCATE ON HYPERTENSION SELF-MANAGEMENT PT TO ASSESS / CORPORATE RISK ANALYST TO MONITOR CARDIO/RESPIRATORY SYSTEM; AND NOTIFY THE PHYSICIAN AND/OR THE RN CLINICAL ADMINISTRATION CLERK FOR PHYSICIAN NOTIFICATION FOR EARLY SIGNS AND SYMPTOMS OF EXACERBATION OR DETERIORATION. PT / CORPORATE RISK ANALYST TO EDUCATE ON ATRIAL FIBRILLATION SELF-MANAGEMENT. PT / CORPORATE RISK ANALYST TO EDUCATE ON PNEUMONIA / ASPIRATION PNEUMONIA SELF-MANAGEMENT. PT/CORPORATE RISK ANALYST TO IDENTIFY FALL RISK FACTORS; EDUCATE THE PATIENT/CAREGIVER ON WAYS TO REDUCE FALL RISK FACTORS AND ESTABLISH HOME EXERCISE PROGRAM TO MINIMIZE FALL RISK. MAY TEACH THE PATIENT FLOOR RECOVERY WHEN CLINICALLY APPROPRIATE] Future Scheduled Test AGENCY MAY PERFORM A RESUMPTION OF CARE VISIT FOLLOWING ANY HOSPITAL ADMISSION. OT TO EVALUATE, OBSERVE / ASSESS, AND MONITOR, RAILROAD ENGINEER TO OBSERVE AND MONITOR, PROVIDE SKILLED THERAPEUTIC INTERVENTION, ACTIVITY, EDUCATION, AND TRAINING TO ADDRESS SAFETY AND INDEPENDENCE OF ADLS AND FUNCTIONAL TRANSFERS IN HOME ENVIRONMENT. ACTIVITIES OF DAILY LIVING (OT/MARIANNE) THERAPEUTIC EXERCISE (OT/RAILROAD ENGINEER) ENERGY CONSERVATION/ACTIVITY DEMAND (OT/RAILROAD ENGINEER) OT/RAILROAD ENGINEER TO MONITOR AND EDUCATE ON OXYGEN SATURATION DURING ADLS/IADLS, NOTIFY PHYSICIAN AND/OR THE RN CLINICAL ADMINISTRATION CLERK FOR PHYSICIAN NOTIFICATION AND IF O2 SATS BELOW 90% AFTER 10 MIN OF REST. OT / RAILROAD ENGINEER TO IDENTIFY FALL RISK FACTORS; EDUCATE THE PATIENT/CAREGIVER ON WAYS TO REDUCE FALL RISK FACTORS AND ESTABLISH HOME EXERCISE PROGRAM TO MINIMIZE FALL RISK. MAY TEACH THE PATIENT FLOOR RECOVERY WHEN CLINICALLY APPROPRIATE. OT/RAILROAD ENGINEER TO EDUCATE ON HYPERTENSION SELF-MANAGEMENT OT/MARIANNE TO EDUCATE ON ATRIAL FIBRILLATION SELF-MANAGEMENT. [code = AGENCY MAY PERFORM A RESUMPTION OF CARE VISIT FOLLOWING ANY HOSPITAL ADMISSION. OT TO EVALUATE, OBSERVE / ASSESS, AND MONITOR, RAILROAD ENGINEER TO OBSERVE AND MONITOR, PROVIDE SKILLED THERAPEUTIC INTERVENTION, ACTIVITY, EDUCATION, AND TRAINING TO ADDRESS SAFETY AND INDEPENDENCE OF ADLS AND FUNCTIONAL TRANSFERS IN HOME ENVIRONMENT. ACTIVITIES OF DAILY LIVING (OT/MARIANNE) THERAPEUTIC EXERCISE (OT/RAILROAD ENGINEER) ENERGY CONSERVATION/ACTIVITY DEMAND (OT/MARIANNE) OT/RAILROAD ENGINEER TO MONITOR AND EDUCATE ON OXYGEN SATURATION DURING ADLS/IADLS, NOTIFY PHYSICIAN AND/OR THE RN CLINICAL ADMINISTRATION CLERK FOR PHYSICIAN NOTIFICATION AND IF O2 SATS BELOW 90% AFTER 10 MIN OF REST. OT / MARIANNE TO IDENTIFY FALL RISK FACTORS; EDUCATE THE PATIENT/CAREGIVER ON WAYS TO REDUCE FALL RISK FACTORS AND ESTABLISH HOME EXERCISE PROGRAM TO MINIMIZE FALL RISK. MAY TEACH THE PATIENT FLOOR RECOVERY WHEN CLINICALLY APPROPRIATE. OT/RAILROAD ENGINEER TO EDUCATE ON HYPERTENSION SELF-MANAGEMENT OT/MARIANNE TO [...] OF SKIN INTEGRITY ISSUES FROM SBA TO DC WITHIN 2 WKS. PT STG: PATIENT WILL [...] TO SAFELY NEGOTIATE STAIRS FROM SBA TO DC WITH 2 STEPS W/O HANDRAIL VIA FRONT [...] End Date/Time Encounter Type Admission Type Attending [facility] Care Department Encounter ID Discharge Date Discharge Status Discharge Condition Discharge Reason Percent Goals Met 2025-02-07 00:00:00 2025-04-07 00:00:00 Outpatient NEW ADMISSION [facility] [id number]
--- OUTSIDE RECORDS SUMMARY | 2025-04-06 18:00 | XMS_ITS | Clinical Summary ---
Author Organization Unknown Care Team Providers Care Hay Baler Name Role Phone DIGNA ARIEL, ESTRELLA Unavailable Unava dinora STOKES RN, FRANKIE Unavailable Unavailabl e KARI PT, DIDI Unavailable Unavailable NAT CALIBRATION CHECKER, GAUDENCIO Unavailable Unavailabl e RADHA OT, ROLANDO Unavailable Unavailable JOANNE STEVEN, HATTIE Unavailable Unavailable Payers Payer Name Policy Type Policy Number Effective Date Expira tion Date MEDICARE.[facility] [id number] Problems Condition Name Condition Details Condition Category Status Onset Date Resolution Date Last Treatment Date Treating Clinician Comments 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 02-07 [...] OF PNEUMONIA (RECURRENT) Active 02-07 00:00: 00 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) USE OF SYSTEMIC STEROIDS Active 02-07 [...] 80 mg tablet 02-07 00:00: 00 Yes [id number] CHOLESTEROL 1 tablet DAILY 1 tablet DAILY (route: oral) Med Classific ation: Cardiovas cular Therapy Agents digoxin 125 mcg (0.125 mg) tablet 02-07 00:00: 00 02-21 23:59 :00 No [id number] HEART RHYTHM 1 tablet DAILY 1 tablet DAILY (route: oral) Med Classific ation: Cardiovas cular Therapy Agents escitalopra m 10 mg tablet 02-07 00:00: 00 Yes [id number] MOOD 1 tablet DAILY 1 tablet DAILY (route: oral) Med Classific ation: Central Nervous System Agents ezetimibe 10 mg tablet 02-07 00:00: 00 Yes [id number] CHOLESTEROL 1 tablet DAILY 1 tablet DAILY (route: oral) Med Classific ation: Cardiovas cular Therapy Agents metoprolol succinate ER 25 mg tablet,exte nded release 24 hr 02-07 00:00: 00 02-21 23:59 :00 No [id number] BLOOD PRESSURE 0.5 tablet DAILY 0.5 tablet DAILY (route: oral) Med Classific ation: Cardiovas cular Therapy Agents pantoprazol e 40 mg tablet,joão yed release 02-07 00:00: 00 02-21 23:59 :00 No [id number] STOMACH ACID 1 tablet DAILY 1 tablet DAILY (route: oral) Med Classific ation: Gastroint estinal Therapy Agents prednisone 5 mg tablet 02-07 00:00: 00 Yes [id number] ADRENAL INSUFFICIEN CY 1 tablet DAILY 1 tablet DAILY (route: oral) Med Classific ation: Endocrine spironolact one 25 mg tablet 02-07 00:00: 00 Yes [id number] FLUID RETENTION 0.5 tablet DAILY 0.5 tablet DAILY (route: oral) Med Classific ation: Cardiovas cular Therapy Agents tamsulosin 0.4 mg capsule 02-07 00:00: 00 02-21 23:59 :00 No [id number] URINARY HEALTH 1 capsule DAILY 1 capsule DAILY (route: oral) Med Classific ation: Genitouri nary Therapy acetaminoph en 325 mg tablet 2024-05 00:00: 00 Yes [id number] PAIN 2 tablet 2 TIMES DAILY 2 tablet 2 TIMES DAILY (route: oral) Med Classific ation: Analgesic , Anti-infl ammatory or Antipyret ic aspirin 81 mg tablet 2024-05 00:00: 00 Yes [id number] ANTICOAGULA NT 1 tablet DAILY 1 tablet DAILY (route: oral) Med Classific ation: Hematolog ical Agents ipratropium 0.5 mg-albutero l 3 mg (2.5 mg base)/3 mL nebulizatio n soln 2024-05 00:00: 00 Yes [id number] COPD 3 mL EVERY 6 HOURS 3 mL EVERY 6 HOURS (route: inhalation ) Med Classific ation: Respirato ry Therapy Agents Lanoxin 62.5 mcg (0.0625 mg) tablet 2024-05 00:00: 00 Yes [id number] CHF 1 tablet DAILY 1 tablet DAILY (route: oral) Med Classific ation: Cardiovas cular Therapy Agents Lasix 20 mg tablet 2024-05 00:00: 00 Yes [id number] CHF 1 tablet DAILY 1 tablet DAILY (route: oral) Med Classific ation: Cardiovas cular Therapy Agents Toprol XL 25 mg tablet,exte nded release 2024-05 00:00: 00 Yes [id number] BP 25 mg DAILY 25 mg DAILY [...] SYSTEM MANAGEMENT; RN TO ASSESS AND TEACH, UNIVERSITY PRESIDENT/GOVERNMENT EMPLOYEE TO OBSERVE AND TEACH RELATED TO ALTERED RESPIRATORY STATUS TO MINIMIZE COMPLICATIONS AND REDUCE HOSPITALIZATION. [code = SN 1WK9 PT 1WK1 OT EFFECTIVE 02/10/2025K1 RESPIRATORY SYSTEM MANAGEMENT; RN TO ASSESS AND TEACH, UNIVERSITY PRESIDENT/GOVERNMENT EMPLOYEE TO OBSERVE AND TEACH RELATED TO ALTERED RESPIRATORY STATUS TO MINIMIZE COMPLICATIONS AND REDUCE HOSPITALIZATION.] Future Scheduled Test TRACHEOSTO MY CARE MANAGEMENT; RN/UNIVERSITY PRESIDENT/GOVERNMENT EMPLOYEE TO INSTRUCT PATIENT/CAREGIVER ON CARE AND MANAGEMENT OF TRACHEOSTOMY. RN/ UNIVERSITY PRESIDENT/GOVERNMENT EMPLOYEE TO PROVIDE SKILLED TEACHING ON TRACH COLLAR SUCTIONING PRN WITH 14 FR SUCTION CATHETER PER PATIENT TRACH CARE WITH INNER CANNULA: REMOVE INNER CANNULA, CLEANSE WITH NORMAL SALINE AND OR STERILE WATER AND REINSERT NON-DISPOSABLE CANNULA SIZE OF INNER CANNULA 5 BROOKS [code = TRACHEOSTOMY CARE MANAGEMENT; RN/UNIVERSITY PRESIDENT/GOVERNMENT EMPLOYEE TO INSTRUCT PATIENT/CAREGIVER ON CARE AND MANAGEMENT OF TRACHEOSTOMY. RN/ UNIVERSITY PRESIDENT/GOVERNMENT EMPLOYEE TO PROVIDE SKILLED TEACHING ON TRACH COLLAR SUCTIONING PRN WITH 14 FR SUCTION CATHETER PER PATIENT TRACH CARE WITH INNER CANNULA: REMOVE INNER CANNULA, CLEANSE WITH NORMAL SALINE AND OR STERILE WATER AND REINSERT NON-DISPOSABLE CANNULA SIZE OF INNER CANNULA 5 BROOKS] Future Scheduled Test FALL REDUC TION MANAGEMENT; RN TO ASSESS AND OBSERVE, UNIVERSITY PRESIDENT/GOVERNMENT EMPLOYEE TO OBSERVE FALL RISK FACTORS AND EDUCATE PATIENT/CAREGIVER ON STRATEGIES TO MINIMIZE THE RISK OF FALLING. [code = FALL REDUCTION MANAGEMENT; RN TO ASSESS AND OBSERVE, UNIVERSITY PRESIDENT/GOVERNMENT EMPLOYEE TO OBSERVE FALL RISK FACTORS AND EDUCATE PATIENT/CAREGIVER ON STRATEGIES TO MINIMIZE THE RISK OF FALLING.] Future Scheduled Test ANEMIA MAN AGEMENT; RN TO ASSESS AND TEACH, GOVERNMENT EMPLOYEE/UNIVERSITY PRESIDENT TO OBSERVE AND TEACH AND PROVIDE EDUCATION ON ANEMIA. [code = ANEMIA MANAGEMENT; RN TO ASSESS AND TEACH, GOVERNMENT EMPLOYEE/UNIVERSITY PRESIDENT TO OBSERVE AND TEACH AND PROVIDE EDUCATION ON ANEMIA.] Future Scheduled Test RN TO OBSE RVE, ASSESS, EVALUATE, AND DEVELOP AN INDIVIDUALIZED PLAN OF CARE. AGENCY MAY ACCEPT ORDERS FROM CONSULTING PHYSICIANS RN TO OBSERVE AND ASSESS, UNIVERSITY PRESIDENT/GOVERNMENT EMPLOYEE TO OBSERVE FOR RISK FOR FALLS AND INSTRUCT IN FALL PREVENTION, HOME SAFETY, MEDICATION MANAGEMENT, INFECTION PREVENTION, AND NUTRITION MANAGEMENT. RN/UNIVERSITY PRESIDENT/GOVERNMENT EMPLOYEE NURSE MAY PERFORM O2 SATURATION LEVEL ON ADMISSION AND PRN FOR RN TO ASSESS/UNIVERSITY PRESIDENT TO OBSERVE PATIENT, WITH NOTIFICATION TO THE PHYSICIAN IF SATURATION IS 90% IN THE ABSENCE OF MORE SPECIFIC PARAMETERS FROM THE PHYSICIAN. AGENCY MAY PERFORM A RESUMPTION OF CARE VISIT FOLLOWING ANY HOSPITAL ADMISSION. RN/UNIVERSITY PRESIDENT/GOVERNMENT EMPLOYEE TO MONITOR CO-MORBID CONDITIONS LISTED ON THE PLAN OF CARE AND ANY NEW CONDITIONS THAT PRESENT THEMSELVES DURING THIS EPISODE TO IDENTIFY CHANGES AND INTERVENE TO MINIMIZE COMPLICATIONS. [code = RN TO OBSERVE, ASSESS, EVALUATE, AND DEVELOP AN INDIVIDUALIZED PLAN OF CARE. AGENCY MAY ACCEPT ORDERS FROM CONSULTING PHYSICIANS RN TO OBSERVE AND ASSESS, UNIVERSITY PRESIDENT/GOVERNMENT EMPLOYEE TO OBSERVE FOR RISK FOR FALLS AND INSTRUCT IN FALL PREVENTION, HOME SAFETY, MEDICATION MANAGEMENT, INFECTION PREVENTION, AND NUTRITION MANAGEMENT. RN/UNIVERSITY PRESIDENT/GOVERNMENT EMPLOYEE NURSE MAY PERFORM O2 SATURATION LEVEL ON ADMISSION AND PRN FOR RN TO ASSESS/UNIVERSITY PRESIDENT TO OBSERVE PATIENT, WITH NOTIFICATION TO THE PHYSICIAN IF SATURATION IS 90% IN THE ABSENCE OF MORE SPECIFIC PARAMETERS FROM THE PHYSICIAN. AGENCY MAY PERFORM A RESUMPTION OF CARE VISIT FOLLOWING ANY HOSPITAL ADMISSION. RN/UNIVERSITY PRESIDENT/GOVERNMENT EMPLOYEE TO MONITOR CO-MORBID CONDITIONS LISTED ON THE PLAN OF CARE AND ANY NEW CONDITIONS THAT PRESENT THEMSELVES DURING THIS EPISODE TO IDENTIFY CHANGES AND INTERVENE TO MINIMIZE COMPLICATIONS.] Future Scheduled Test PAIN MANAG EMENT; RN TO ASSESS AND TEACH, GOVERNMENT EMPLOYEE/UNIVERSITY PRESIDENT TO OBSERVE AND TEACH AND PROVIDE EDUCATION ON PAIN MANAGEMENT TECHNIQUES. [code = PAIN MANAGEMENT; RN TO ASSESS AND TEACH, GOVERNMENT EMPLOYEE/UNIVERSITY PRESIDENT TO OBSERVE AND TEACH AND PROVIDE EDUCATION ON PAIN MANAGEMENT TECHNIQUES.] Future Scheduled Test RISK FOR H OSPITALIZATION; RN TO ASSESS/TEACH, GOVERNMENT EMPLOYEE/UNIVERSITY PRESIDENT TO OBSERVE/TEACH PATIENT/CAREGIVER ON RISK FOR HOSPITALIZATION/EMERGENCY ROOM VISITS, TEACH SIGNS AND SYMPTOMS THAT PUT PATIENT AT RISK, WHEN TO NOTIFY NURSE/PHYSICIAN OF COMPLICATIONS/DECLINE, AND WHEN TO CALL 911. [code = RISK FOR HOSPITALIZATION; RN TO ASSESS/TEACH, GOVERNMENT EMPLOYEE/UNIVERSITY PRESIDENT TO OBSERVE/TEACH PATIENT/CAREGIVER ON RISK FOR HOSPITALIZATION/EMERGENCY ROOM VISITS, TEACH SIGNS AND SYMPTOMS THAT PUT PATIENT AT RISK, WHEN TO NOTIFY NURSE/PHYSICIAN OF COMPLICATIONS/DECLINE, AND WHEN TO CALL 911.] Future Scheduled Test CARDIOVASC ULAR SYSTEM; RN TO ASSESS/TEACH, UNIVERSITY PRESIDENT/GOVERNMENT EMPLOYEE TO OBSERVE/TEACH RELATED TO ALTERED CARDIOVASCULAR STATUS TO MINIMIZE COMPLICATIONS AND REDUCE HOSPITALIZATION. [code = CARDIOVASCULAR SYSTEM; RN TO ASSESS/TEACH, UNIVERSITY PRESIDENT/GOVERNMENT EMPLOYEE TO OBSERVE/TEACH RELATED TO ALTERED CARDIOVASCULAR STATUS TO MINIMIZE COMPLICATIONS AND REDUCE HOSPITALIZATION.] Future Scheduled Test HYPERTENSI ON MANAGEMENT; RN TO ASSESS AND TEACH, UNIVERSITY PRESIDENT/GOVERNMENT EMPLOYEE TO OBSERVE AND TEACH WARNING SIGNS AND SYMPTOMS TO AVOID HOSPITALIZATION. [code = HYPERTENSION MANAGEMENT; RN TO ASSESS AND TEACH, UNIVERSITY PRESIDENT/GOVERNMENT EMPLOYEE TO OBSERVE AND TEACH WARNING SIGNS AND SYMPTOMS TO AVOID HOSPITALIZATION.] Future Scheduled Test HEART FAIL URE MONITORING RN/GOVERNMENT EMPLOYEE/UNIVERSITY PRESIDENT TO MONITOR PATIENT FOR SIGNS AND SYMPTOMS OF HEART FAILURE EXACERBATION, MONITOR FOR ADHERENCE WITH MEDICATION AND HEART FAILURE MANAGEMENT REGIMEN. [code = HEART FAILURE MONITORING RN/GOVERNMENT EMPLOYEE/UNIVERSITY PRESIDENT TO MONITOR PATIENT FOR SIGNS AND SYMPTOMS OF HEART FAILURE EXACERBATION, MONITOR FOR ADHERENCE WITH MEDICATION AND HEART FAILURE MANAGEMENT REGIMEN.] Future Scheduled Test DIABETES M ONITORING RN/GOVERNMENT EMPLOYEE/UNIVERSITY PRESIDENT TO MONITOR BLOOD SUGAR LOG FOR BLOOD SUGAR READINGS THAT ARE BEING CHECKED BY PATIENT, CAREGIVER NEEDED FOR SIGNS AND SYMPTOMS OF HYPER/HYPOGLYCEMIA. PATIENT THERAPEUTIC BLOOD SUGAR PARAMETERS ARE 70 - 300. REPORT BLOOD SUGARS OUT OF RANGE TO PHYSICIAN. NURSE MAY PERFORM FINGER STICK BLOOD GLUCOSE NEEDED FOR SIGNS AND SYMPTOMS OF HYPO AND HYPERGLYCEMIA. RN/GOVERNMENT EMPLOYEE/UNIVERSITY PRESIDENT TO MONITOR ADHERENCE OF PATIENT/CAREGIVER PERFORMING DIABETIC FOOT CARE AND MAY PERFORM DIABETIC FOOT CARE PRN. RN/GOVERNMENT EMPLOYEE/UNIVERSITY PRESIDENT TO MONITOR FOR ADHERENCE TO DIABETIC SELF-CARE AND MANAGEMENT INCLUDING MEDICATIONS. [code = DIABETES MONITORING RN/GOVERNMENT EMPLOYEE/UNIVERSITY PRESIDENT TO MONITOR BLOOD SUGAR LOG FOR BLOOD SUGAR READINGS THAT ARE BEING CHECKED BY PATIENT, CAREGIVER NEEDED FOR SIGNS AND SYMPTOMS OF HYPER/HYPOGLYCEMIA. PATIENT THERAPEUTIC BLOOD SUGAR PARAMETERS ARE 70 - 300. REPORT BLOOD SUGARS OUT OF RANGE TO PHYSICIAN. NURSE MAY PERFORM FINGER STICK BLOOD GLUCOSE NEEDED FOR SIGNS AND SYMPTOMS OF HYPO AND HYPERGLYCEMIA. RN/GOVERNMENT EMPLOYEE/UNIVERSITY PRESIDENT TO MONITOR ADHERENCE OF PATIENT/CAREGIVER PERFORMING DIABETIC FOOT CARE AND MAY PERFORM DIABETIC FOOT CARE PRN. RN/GOVERNMENT EMPLOYEE/UNIVERSITY PRESIDENT TO MONITOR FOR ADHERENCE TO DIABETIC SELF-CARE AND MANAGEMENT INCLUDING MEDICATIONS.] Future Scheduled Test HYPOTENSIO N MANAGEMENT; RN TO ASSESS AND TEACH/ UNIVERSITY PRESIDENT /GOVERNMENT EMPLOYEE TO OBSERVE AND TEACH WARNING SIGNS AND SYMPTOMS TO AVOID HOSPITALIZATION. [code = HYPOTENSION MANAGEMENT; RN TO ASSESS AND TEACH/ UNIVERSITY PRESIDENT /GOVERNMENT EMPLOYEE TO OBSERVE AND TEACH WARNING SIGNS AND SYMPTOMS TO AVOID HOSPITALIZATION.] Future Scheduled Test ARRHYTHMIA MANAGEMENT; RN TO ASSESS AND TEACH, UNIVERSITY PRESIDENT/GOVERNMENT EMPLOYEE TO OBSERVE AND TEACH WARNING SIGNS AND SYMPTOMS TO AVOID HOSPITALIZATION. [code = ARRHYTHMIA MANAGEMENT; RN TO ASSESS AND TEACH, UNIVERSITY PRESIDENT/GOVERNMENT EMPLOYEE TO OBSERVE AND TEACH WARNING SIGNS AND SYMPTOMS TO AVOID HOSPITALIZATION.] Future Scheduled Test MEDICATION MANAGEMENT; RN/UNIVERSITY PRESIDENT/GOVERNMENT EMPLOYEE TO REVIEW MEDICATIONS FOR INTERACTIONS, EFFECTIVENESS OF DRUG THERAPY, AND SIGNS/SYMPTOMS OF ADVERSE REACTIONS. MAY INSTRUCT AND REINFORCE MEDICATION TEACHING RELATED TO THE USE OF MEDICATIONS, DOSAGE, FREQUENCY, PURPOSE, SIDE EFFECTS, AND TO REPORT COMPLICATIONS. [code = MEDICATION MANAGEMENT; RN/UNIVERSITY PRESIDENT/GOVERNMENT EMPLOYEE TO REVIEW MEDICATIONS FOR INTERACTIONS, EFFECTIVENESS OF [...] EVAL UATE, OBSERVE / ASSESS, AND MONITOR, CALIBRATION CHECKER TO OBSERVE AND MONITOR, PROVIDE SKILLED THERAPEUTIC INTERVENTION, ACTIVITY, EDUCATION, AND TRAINING TO ADDRESS GEN. WEAKNESS, POOR OVERALL ACTIVITY TOLERANCE, AND FUNCTIONAL LIMITATIONS IMPACTING SAFETY AND INDEPENDENCE. BED MOBILITY (PT/CALIBRATION CHECKER) PT/CALIBRATION CHECKER TO PROVIDE GAIT TRAINING FOR IMPROVED MOBILITY AND /OR TO NORMALIZE GAIT PATTERN THERAPEUTIC EXERCISES AND ESTABLISHING A HOME EXERCISE PROGRAM (PT/CALIBRATION CHECKER) PT/CALIBRATION CHECKER TO PROVIDE STAIR TRAINING PT / CALIBRATION CHECKER TO MONITOR AND EDUCATE ON OXYGEN SATURATION DURING ADLS/IADLS, NOTIFY PHYSICIAN AND/OR THE RN CLINICAL DIRECTOR OF VOLUNTEER SERVICES FOR PHYSICIAN NOTIFICATION AND IF O2 SATS BELOW PHYSICIAN ORDERED PARAMETERS AFTER 10 MIN OF REST PT / CALIBRATION CHECKER TO OBSERVE FOR EARLY SIGNS AND SYMPTOMS OF DEPRESSION OR DEPRESSION GETTING WORSE AND TO EDUCATE ON HOW TO FIND HELP. PT / CALIBRATION CHECKER MAY EDUCATE ON PAIN MANAGEMENT CLINICALLY INDICATED, INCLUDING NON-PHARMACOLOGICAL PAIN REDUCTION TECHNIQUES PT / CALIBRATION CHECKER TO MONITOR FOR HYPO/HYPERGLYCEMIA AND CONDUCT ROUTINE FOOT INSPECTIONS. RECORD PATIENT REPORTED BLOOD SUGAR LEVELS AND NOTIFY PHYSICIAN AND/OR THE RN CLINICAL DIRECTOR OF VOLUNTEER SERVICES FOR PHYSICIAN NOTIFICATION IF BLOOD SUGAR LEVELS ARE OUTSIDE ORDERED PARAMETERS. TEACH PATIENT/CAREGIVER ON DAILY FOOT INSPECTIONS PT / CALIBRATION CHECKER TO INSTRUCT PATIENT/CAREGIVER ON RISK FOR HOSPITALIZATION/EMERGENCY ROOM VISITS, TEACH SIGNS AND SYMPTOMS THAT PUT PATIENT AT RISK, WHEN TO NOTIFY NURSE/PHYSICIAN OF COMPLICATIONS/DECLINE, AND WHEN TO CALL 911. PT/CALIBRATION CHECKER TO EDUCATE ON ARTHRITIS SELF-MANAGEMENT PT / CALIBRATION CHECKER TO EDUCATE ON HEART FAILURE SELF-MANAGEMENT PT / CALIBRATION CHECKER TO EDUCATE ON HYPERTENSION SELF-MANAGEMENT PT TO ASSESS / CALIBRATION CHECKER TO MONITOR CARDIO/RESPIRATORY SYSTEM; AND NOTIFY THE PHYSICIAN AND/OR THE RN CLINICAL DIRECTOR OF VOLUNTEER SERVICES FOR PHYSICIAN NOTIFICATION FOR EARLY SIGNS AND SYMPTOMS OF EXACERBATION OR DETERIORATION. PT / CALIBRATION CHECKER TO EDUCATE ON ATRIAL FIBRILLATION SELF-MANAGEMENT. PT / CALIBRATION CHECKER TO EDUCATE ON PNEUMONIA / ASPIRATION PNEUMONIA SELF-MANAGEMENT. PT/CALIBRATION CHECKER TO IDENTIFY FALL RISK FACTORS; EDUCATE THE PATIENT/CAREGIVER ON WAYS TO REDUCE FALL RISK FACTORS AND ESTABLISH HOME EXERCISE PROGRAM TO MINIMIZE FALL RISK. MAY TEACH THE PATIENT FLOOR RECOVERY WHEN CLINICALLY APPROPRIATE [code = PT TO EVALUATE, OBSERVE / ASSESS, AND MONITOR, CALIBRATION CHECKER TO OBSERVE AND MONITOR, PROVIDE SKILLED THERAPEUTIC INTERVENTION, ACTIVITY, EDUCATION, AND TRAINING TO ADDRESS GEN. WEAKNESS, POOR OVERALL ACTIVITY TOLERANCE, AND FUNCTIONAL LIMITATIONS IMPACTING SAFETY AND INDEPENDENCE. BED MOBILITY (PT/CALIBRATION CHECKER) PT/CALIBRATION CHECKER TO PROVIDE GAIT TRAINING FOR IMPROVED MOBILITY AND /OR TO NORMALIZE GAIT PATTERN THERAPEUTIC EXERCISES AND ESTABLISHING A HOME EXERCISE PROGRAM (PT/CALIBRATION CHECKER) PT/CALIBRATION CHECKER TO PROVIDE STAIR TRAINING PT / CALIBRATION CHECKER TO MONITOR AND EDUCATE ON OXYGEN SATURATION DURING ADLS/IADLS, NOTIFY PHYSICIAN AND/OR THE RN CLINICAL DIRECTOR OF VOLUNTEER SERVICES FOR PHYSICIAN NOTIFICATION AND IF O2 SATS BELOW PHYSICIAN ORDERED PARAMETERS AFTER 10 MIN OF REST PT / CALIBRATION CHECKER TO OBSERVE FOR EARLY SIGNS AND SYMPTOMS OF DEPRESSION OR DEPRESSION GETTING WORSE AND TO EDUCATE ON HOW TO FIND HELP. PT / CALIBRATION CHECKER MAY EDUCATE ON PAIN MANAGEMENT CLINICALLY INDICATED, INCLUDING NON-PHARMACOLOGICAL PAIN REDUCTION TECHNIQUES PT / CALIBRATION CHECKER TO MONITOR FOR HYPO/HYPERGLYCEMIA AND CONDUCT ROUTINE FOOT INSPECTIONS. RECORD PATIENT REPORTED BLOOD SUGAR LEVELS AND NOTIFY PHYSICIAN AND/OR THE RN CLINICAL DIRECTOR OF VOLUNTEER SERVICES FOR PHYSICIAN NOTIFICATION IF BLOOD SUGAR LEVELS ARE OUTSIDE ORDERED PARAMETERS. TEACH PATIENT/CAREGIVER ON DAILY FOOT INSPECTIONS PT / CALIBRATION CHECKER TO INSTRUCT PATIENT/CAREGIVER ON RISK FOR HOSPITALIZATION/EMERGENCY ROOM VISITS, TEACH SIGNS AND SYMPTOMS THAT PUT PATIENT AT RISK, WHEN TO NOTIFY NURSE/PHYSICIAN OF COMPLICATIONS/DECLINE, AND WHEN TO CALL 911. PT/CALIBRATION CHECKER TO EDUCATE ON ARTHRITIS SELF-MANAGEMENT PT / CALIBRATION CHECKER TO EDUCATE ON HEART FAILURE SELF-MANAGEMENT PT / CALIBRATION CHECKER TO EDUCATE ON HYPERTENSION SELF-MANAGEMENT PT TO ASSESS / CALIBRATION CHECKER TO MONITOR CARDIO/RESPIRATORY SYSTEM; AND NOTIFY THE PHYSICIAN AND/OR THE RN CLINICAL DIRECTOR OF VOLUNTEER SERVICES FOR PHYSICIAN NOTIFICATION FOR EARLY SIGNS AND SYMPTOMS OF EXACERBATION OR DETERIORATION. PT / CALIBRATION CHECKER TO EDUCATE ON ATRIAL FIBRILLATION SELF-MANAGEMENT. PT / CALIBRATION CHECKER TO EDUCATE ON PNEUMONIA / ASPIRATION PNEUMONIA SELF-MANAGEMENT. PT/CALIBRATION CHECKER TO IDENTIFY FALL RISK FACTORS; EDUCATE THE PATIENT/CAREGIVER ON WAYS TO REDUCE FALL RISK FACTORS AND ESTABLISH HOME EXERCISE PROGRAM TO MINIMIZE FALL RISK. MAY TEACH THE PATIENT FLOOR RECOVERY WHEN CLINICALLY APPROPRIATE] Future Scheduled Test AGENCY MAY PERFORM A RESUMPTION OF CARE VISIT FOLLOWING ANY HOSPITAL ADMISSION. OT TO EVALUATE, OBSERVE / ASSESS, AND MONITOR, MULTI MEDIA SPECIALIST TO OBSERVE AND MONITOR, PROVIDE SKILLED THERAPEUTIC INTERVENTION, ACTIVITY, EDUCATION, AND TRAINING TO ADDRESS SAFETY AND INDEPENDENCE OF ADLS AND FUNCTIONAL TRANSFERS IN HOME ENVIRONMENT. ACTIVITIES OF DAILY LIVING (OT/MARIANNE) THERAPEUTIC EXERCISE (OT/MULTI MEDIA SPECIALIST) ENERGY CONSERVATION/ACTIVITY DEMAND (OT/MULTI MEDIA SPECIALIST) OT/MULTI MEDIA SPECIALIST TO MONITOR AND EDUCATE ON OXYGEN SATURATION DURING ADLS/IADLS, NOTIFY PHYSICIAN AND/OR THE RN CLINICAL DIRECTOR OF VOLUNTEER SERVICES FOR PHYSICIAN NOTIFICATION AND IF O2 SATS BELOW 90% AFTER 10 MIN OF REST. OT / MULTI MEDIA SPECIALIST TO IDENTIFY FALL RISK FACTORS; EDUCATE THE PATIENT/CAREGIVER ON WAYS TO REDUCE FALL RISK FACTORS AND ESTABLISH HOME EXERCISE PROGRAM TO MINIMIZE FALL RISK. MAY TEACH THE PATIENT FLOOR RECOVERY WHEN CLINICALLY APPROPRIATE. OT/MULTI MEDIA SPECIALIST TO EDUCATE ON HYPERTENSION SELF-MANAGEMENT OT/MARIANNE TO EDUCATE ON ATRIAL FIBRILLATION SELF-MANAGEMENT. [code = AGENCY MAY PERFORM A RESUMPTION OF CARE VISIT FOLLOWING ANY HOSPITAL ADMISSION. OT TO EVALUATE, OBSERVE / ASSESS, AND MONITOR, MULTI MEDIA SPECIALIST TO OBSERVE AND MONITOR, PROVIDE SKILLED THERAPEUTIC INTERVENTION, ACTIVITY, EDUCATION, AND TRAINING TO ADDRESS SAFETY AND INDEPENDENCE OF ADLS AND FUNCTIONAL TRANSFERS IN HOME ENVIRONMENT. ACTIVITIES OF DAILY LIVING (OT/MARIANNE) THERAPEUTIC EXERCISE (OT/MULTI MEDIA SPECIALIST) ENERGY CONSERVATION/ACTIVITY DEMAND (OT/MARIANNE) OT/MULTI MEDIA SPECIALIST TO MONITOR AND EDUCATE ON OXYGEN SATURATION DURING ADLS/IADLS, NOTIFY PHYSICIAN AND/OR THE RN CLINICAL DIRECTOR OF VOLUNTEER SERVICES FOR PHYSICIAN NOTIFICATION AND IF O2 SATS BELOW 90% AFTER 10 MIN OF REST. OT / MARIANNE TO IDENTIFY FALL RISK FACTORS; EDUCATE THE PATIENT/CAREGIVER ON WAYS TO REDUCE FALL RISK FACTORS AND ESTABLISH HOME EXERCISE PROGRAM TO MINIMIZE FALL RISK. MAY TEACH THE PATIENT FLOOR RECOVERY WHEN CLINICALLY APPROPRIATE. OT/MULTI MEDIA SPECIALIST TO EDUCATE ON HYPERTENSION SELF-MANAGEMENT OT/MARIANNE TO [...] OF SKIN INTEGRITY ISSUES FROM SBA TO WA WITHIN 2 WKS. PT STG: PATIENT WILL [...] TO SAFELY NEGOTIATE STAIRS FROM SBA TO WA WITH 2 STEPS W/O HANDRAIL VIA FRONT [...] End Date/Time Encounter Type Admission Type Attending [facility] Care Department Encounter ID Discharge Date Discharge Status Discharge Condition Discharge Reason Percent Goals Met 2025-02-07 00:00:00 2025-04-07 00:00:00 Outpatient NEW ADMISSION [facility] [id number] 26.42
--- OUTSIDE RECORDS SUMMARY | 2025-04-06 18:00 | XMS_ITS | Clinical Summary ---
Author Organization Unknown Care Team Providers Care Physical Director Name Role Phone DIGNA ARIEL, ESTRELLA Unavailable Unava dinora STOKES RN, FRANKIE Unavailable Unavailabl e KARI PT, DIDI Unavailable Unavailable NAT RESIDENT DOCTOR, GAUDENCIO Unavailable Unavailabl e RADHA OT, ROLANDO Unavailable Unavailable JOANNE STEVEN, HATTIE Unavailable Unavailable Payers Payer Name Policy Type Policy Number Effective Date Expira tion Date MEDICARE.[facility] [id number] Problems Condition Name Condition Details Condition Category Status Onset Date Resolution Date Last Treatment Date Treating Clinician Comments 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: 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 02-07 [...] OF PNEUMONIA (RECURRENT) Active 02-07 00:00: 00 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) USE OF SYSTEMIC STEROIDS Active 02-07 [...] 80 mg tablet 02-07 00:00: 00 Yes [id number] CHOLESTEROL 1 tablet DAILY 1 tablet DAILY (route: oral) Med Classific ation: Cardiovas cular Therapy Agents digoxin 125 mcg (0.125 mg) tablet 02-07 00:00: 00 02-21 23:59 :00 No [id number] HEART RHYTHM 1 tablet DAILY 1 tablet DAILY (route: oral) Med Classific ation: Cardiovas cular Therapy Agents escitalopra m 10 mg tablet 02-07 00:00: 00 Yes [id number] MOOD 1 tablet DAILY 1 tablet DAILY (route: oral) Med Classific ation: Central Nervous System Agents ezetimibe 10 mg tablet 02-07 00:00: 00 Yes [id number] CHOLESTEROL 1 tablet DAILY 1 tablet DAILY (route: oral) Med Classific ation: Cardiovas cular Therapy Agents metoprolol succinate ER 25 mg tablet,exte nded release 24 hr 02-07 00:00: 00 02-21 23:59 :00 No [id number] BLOOD PRESSURE 0.5 tablet DAILY 0.5 tablet DAILY (route: oral) Med Classific ation: Cardiovas cular Therapy Agents pantoprazol e 40 mg tablet,joão yed release 02-07 00:00: 00 02-21 23:59 :00 No [id number] STOMACH ACID 1 tablet DAILY 1 tablet DAILY (route: oral) Med Classific ation: Gastroint estinal Therapy Agents prednisone 5 mg tablet 02-07 00:00: 00 Yes [id number] ADRENAL INSUFFICIEN CY 1 tablet DAILY 1 tablet DAILY (route: oral) Med Classific ation: Endocrine spironolact one 25 mg tablet 02-07 00:00: 00 Yes [id number] FLUID RETENTION 0.5 tablet DAILY 0.5 tablet DAILY (route: oral) Med Classific ation: Cardiovas cular Therapy Agents tamsulosin 0.4 mg capsule 02-07 00:00: 00 02-21 23:59 :00 No [id number] URINARY HEALTH 1 capsule DAILY 1 capsule DAILY (route: oral) Med Classific ation: Genitouri nary Therapy acetaminoph en 325 mg tablet 2024-05 00:00: 00 Yes [id number] PAIN 2 tablet 2 TIMES DAILY 2 tablet 2 TIMES DAILY (route: oral) Med Classific ation: Analgesic , Anti-infl ammatory or Antipyret ic aspirin 81 mg tablet 2024-05 00:00: 00 Yes [id number] ANTICOAGULA NT 1 tablet DAILY 1 tablet DAILY (route: oral) Med Classific ation: Hematolog ical Agents ipratropium 0.5 mg-albutero l 3 mg (2.5 mg base)/3 mL nebulizatio n soln 2024-05 00:00: 00 Yes [id number] COPD 3 mL EVERY 6 HOURS 3 mL EVERY 6 HOURS (route: inhalation ) Med Classific ation: Respirato ry Therapy Agents Lanoxin 62.5 mcg (0.0625 mg) tablet 2024-05 00:00: 00 Yes [id number] CHF 1 tablet DAILY 1 tablet DAILY (route: oral) Med Classific ation: Cardiovas cular Therapy Agents Lasix 20 mg tablet 2024-05 00:00: 00 Yes [id number] CHF 1 tablet DAILY 1 tablet DAILY (route: oral) Med Classific ation: Cardiovas cular Therapy Agents Toprol XL 25 mg tablet,exte nded release 2024-05 00:00: 00 Yes [id number] BP 25 mg DAILY 25 mg DAILY [...] SYSTEM MANAGEMENT; RN TO ASSESS AND TEACH, FILM CREW MEMBER/SUPERVISOR CONCRETE STONE FABRICATING TO OBSERVE AND TEACH RELATED TO ALTERED RESPIRATORY STATUS TO MINIMIZE COMPLICATIONS AND REDUCE HOSPITALIZATION. [code = SN 1WK9 PT 1WK1 OT EFFECTIVE 02/10/2025K1 RESPIRATORY SYSTEM MANAGEMENT; RN TO ASSESS AND TEACH, FILM CREW MEMBER/SUPERVISOR CONCRETE STONE FABRICATING TO OBSERVE AND TEACH RELATED TO ALTERED RESPIRATORY STATUS TO MINIMIZE COMPLICATIONS AND REDUCE HOSPITALIZATION.] Future Scheduled Test TRACHEOSTO MY CARE MANAGEMENT; RN/FILM CREW MEMBER/SUPERVISOR CONCRETE STONE FABRICATING TO INSTRUCT PATIENT/CAREGIVER ON CARE AND MANAGEMENT OF TRACHEOSTOMY. RN/ FILM CREW MEMBER/SUPERVISOR CONCRETE STONE FABRICATING TO PROVIDE SKILLED TEACHING ON TRACH COLLAR SUCTIONING PRN WITH 14 FR SUCTION CATHETER PER PATIENT TRACH CARE WITH INNER CANNULA: REMOVE INNER CANNULA, CLEANSE WITH NORMAL SALINE AND OR STERILE WATER AND REINSERT NON-DISPOSABLE CANNULA SIZE OF INNER CANNULA 5 BROKOS [code = TRACHEOSTOMY CARE MANAGEMENT; RN/FILM CREW MEMBER/SUPERVISOR CONCRETE STONE FABRICATING TO INSTRUCT PATIENT/CAREGIVER ON CARE AND MANAGEMENT OF TRACHEOSTOMY. RN/ FILM CREW MEMBER/SUPERVISOR CONCRETE STONE FABRICATING TO PROVIDE SKILLED TEACHING ON TRACH COLLAR SUCTIONING PRN WITH 14 FR SUCTION CATHETER PER PATIENT TRACH CARE WITH INNER CANNULA: REMOVE INNER CANNULA, CLEANSE WITH NORMAL SALINE AND OR STERILE WATER AND REINSERT NON-DISPOSABLE CANNULA SIZE OF INNER CANNULA 5 BROOKS] Future Scheduled Test FALL REDUC TION MANAGEMENT; RN TO ASSESS AND OBSERVE, FILM CREW MEMBER/SUPERVISOR CONCRETE STONE FABRICATING TO OBSERVE FALL RISK FACTORS AND EDUCATE PATIENT/CAREGIVER ON STRATEGIES TO MINIMIZE THE RISK OF FALLING. [code = FALL REDUCTION MANAGEMENT; RN TO ASSESS AND OBSERVE, FILM CREW MEMBER/SUPERVISOR CONCRETE STONE FABRICATING TO OBSERVE FALL RISK FACTORS AND EDUCATE PATIENT/CAREGIVER ON STRATEGIES TO MINIMIZE THE RISK OF FALLING.] Future Scheduled Test ANEMIA MAN AGEMENT; RN TO ASSESS AND TEACH, SUPERVISOR CONCRETE STONE FABRICATING/FILM CREW MEMBER TO OBSERVE AND TEACH AND PROVIDE EDUCATION ON ANEMIA. [code = ANEMIA MANAGEMENT; RN TO ASSESS AND TEACH, SUPERVISOR CONCRETE STONE FABRICATING/FILM CREW MEMBER TO OBSERVE AND TEACH AND PROVIDE EDUCATION ON ANEMIA.] Future Scheduled Test RN TO OBSE RVE, ASSESS, EVALUATE, AND DEVELOP AN INDIVIDUALIZED PLAN OF CARE. AGENCY MAY ACCEPT ORDERS FROM CONSULTING PHYSICIANS RN TO OBSERVE AND ASSESS, FILM CREW MEMBER/SUPERVISOR CONCRETE STONE FABRICATING TO OBSERVE FOR RISK FOR FALLS AND INSTRUCT IN FALL PREVENTION, HOME SAFETY, MEDICATION MANAGEMENT, INFECTION PREVENTION, AND NUTRITION MANAGEMENT. RN/FILM CREW MEMBER/SUPERVISOR CONCRETE STONE FABRICATING NURSE MAY PERFORM O2 SATURATION LEVEL ON ADMISSION AND PRN FOR RN TO ASSESS/FILM CREW MEMBER TO OBSERVE PATIENT, WITH NOTIFICATION TO THE PHYSICIAN IF SATURATION IS 90% IN THE ABSENCE OF MORE SPECIFIC PARAMETERS FROM THE PHYSICIAN. AGENCY MAY PERFORM A RESUMPTION OF CARE VISIT FOLLOWING ANY HOSPITAL ADMISSION. RN/FILM CREW MEMBER/SUPERVISOR CONCRETE STONE FABRICATING TO MONITOR CO-MORBID CONDITIONS LISTED ON THE PLAN OF CARE AND ANY NEW CONDITIONS THAT PRESENT THEMSELVES DURING THIS EPISODE TO IDENTIFY CHANGES AND INTERVENE TO MINIMIZE COMPLICATIONS. [code = RN TO OBSERVE, ASSESS, EVALUATE, AND DEVELOP AN INDIVIDUALIZED PLAN OF CARE. AGENCY MAY ACCEPT ORDERS FROM CONSULTING PHYSICIANS RN TO OBSERVE AND ASSESS, FILM CREW MEMBER/SUPERVISOR CONCRETE STONE FABRICATING TO OBSERVE FOR RISK FOR FALLS AND INSTRUCT IN FALL PREVENTION, HOME SAFETY, MEDICATION MANAGEMENT, INFECTION PREVENTION, AND NUTRITION MANAGEMENT. RN/FILM CREW MEMBER/SUPERVISOR CONCRETE STONE FABRICATING NURSE MAY PERFORM O2 SATURATION LEVEL ON ADMISSION AND PRN FOR RN TO ASSESS/FILM CREW MEMBER TO OBSERVE PATIENT, WITH NOTIFICATION TO THE PHYSICIAN IF SATURATION IS 90% IN THE ABSENCE OF MORE SPECIFIC PARAMETERS FROM THE PHYSICIAN. AGENCY MAY PERFORM A RESUMPTION OF CARE VISIT FOLLOWING ANY HOSPITAL ADMISSION. RN/FILM CREW MEMBER/SUPERVISOR CONCRETE STONE FABRICATING TO MONITOR CO-MORBID CONDITIONS LISTED ON THE PLAN OF CARE AND ANY NEW CONDITIONS THAT PRESENT THEMSELVES DURING THIS EPISODE TO IDENTIFY CHANGES AND INTERVENE TO MINIMIZE COMPLICATIONS.] Future Scheduled Test PAIN MANAG EMENT; RN TO ASSESS AND TEACH, SUPERVISOR CONCRETE STONE FABRICATING/FILM CREW MEMBER TO OBSERVE AND TEACH AND PROVIDE EDUCATION ON PAIN MANAGEMENT TECHNIQUES. [code = PAIN MANAGEMENT; RN TO ASSESS AND TEACH, SUPERVISOR CONCRETE STONE FABRICATING/FILM CREW MEMBER TO OBSERVE AND TEACH AND PROVIDE EDUCATION ON PAIN MANAGEMENT TECHNIQUES.] Future Scheduled Test RISK FOR H OSPITALIZATION; RN TO ASSESS/TEACH, SUPERVISOR CONCRETE STONE FABRICATING/FILM CREW MEMBER TO OBSERVE/TEACH PATIENT/CAREGIVER ON RISK FOR HOSPITALIZATION/EMERGENCY ROOM VISITS, TEACH SIGNS AND SYMPTOMS THAT PUT PATIENT AT RISK, WHEN TO NOTIFY NURSE/PHYSICIAN OF COMPLICATIONS/DECLINE, AND WHEN TO CALL 911. [code = RISK FOR HOSPITALIZATION; RN TO ASSESS/TEACH, SUPERVISOR CONCRETE STONE FABRICATING/FILM CREW MEMBER TO OBSERVE/TEACH PATIENT/CAREGIVER ON RISK FOR HOSPITALIZATION/EMERGENCY ROOM VISITS, TEACH SIGNS AND SYMPTOMS THAT PUT PATIENT AT RISK, WHEN TO NOTIFY NURSE/PHYSICIAN OF COMPLICATIONS/DECLINE, AND WHEN TO CALL 911.] Future Scheduled Test CARDIOVASC ULAR SYSTEM; RN TO ASSESS/TEACH, FILM CREW MEMBER/SUPERVISOR CONCRETE STONE FABRICATING TO OBSERVE/TEACH RELATED TO ALTERED CARDIOVASCULAR STATUS TO MINIMIZE COMPLICATIONS AND REDUCE HOSPITALIZATION. [code = CARDIOVASCULAR SYSTEM; RN TO ASSESS/TEACH, FILM CREW MEMBER/SUPERVISOR CONCRETE STONE FABRICATING TO OBSERVE/TEACH RELATED TO ALTERED CARDIOVASCULAR STATUS TO MINIMIZE COMPLICATIONS AND REDUCE HOSPITALIZATION.] Future Scheduled Test HYPERTENSI ON MANAGEMENT; RN TO ASSESS AND TEACH, FILM CREW MEMBER/SUPERVISOR CONCRETE STONE FABRICATING TO OBSERVE AND TEACH WARNING SIGNS AND SYMPTOMS TO AVOID HOSPITALIZATION. [code = HYPERTENSION MANAGEMENT; RN TO ASSESS AND TEACH, FILM CREW MEMBER/SUPERVISOR CONCRETE STONE FABRICATING TO OBSERVE AND TEACH WARNING SIGNS AND SYMPTOMS TO AVOID HOSPITALIZATION.] Future Scheduled Test HEART FAIL URE MONITORING RN/SUPERVISOR CONCRETE STONE FABRICATING/FILM CREW MEMBER TO MONITOR PATIENT FOR SIGNS AND SYMPTOMS OF HEART FAILURE EXACERBATION, MONITOR FOR ADHERENCE WITH MEDICATION AND HEART FAILURE MANAGEMENT REGIMEN. [code = HEART FAILURE MONITORING RN/SUPERVISOR CONCRETE STONE FABRICATING/FILM CREW MEMBER TO MONITOR PATIENT FOR SIGNS AND SYMPTOMS OF HEART FAILURE EXACERBATION, MONITOR FOR ADHERENCE WITH MEDICATION AND HEART FAILURE MANAGEMENT REGIMEN.] Future Scheduled Test DIABETES M ONITORING RN/SUPERVISOR CONCRETE STONE FABRICATING/FILM CREW MEMBER TO MONITOR BLOOD SUGAR LOG FOR BLOOD SUGAR READINGS THAT ARE BEING CHECKED BY PATIENT, CAREGIVER NEEDED FOR SIGNS AND SYMPTOMS OF HYPER/HYPOGLYCEMIA. PATIENT THERAPEUTIC BLOOD SUGAR PARAMETERS ARE 70 - 300. REPORT BLOOD SUGARS OUT OF RANGE TO PHYSICIAN. NURSE MAY PERFORM FINGER STICK BLOOD GLUCOSE NEEDED FOR SIGNS AND SYMPTOMS OF HYPO AND HYPERGLYCEMIA. RN/SUPERVISOR CONCRETE STONE FABRICATING/FILM CREW MEMBER TO MONITOR ADHERENCE OF PATIENT/CAREGIVER PERFORMING DIABETIC FOOT CARE AND MAY PERFORM DIABETIC FOOT CARE PRN. RN/SUPERVISOR CONCRETE STONE FABRICATING/FILM CREW MEMBER TO MONITOR FOR ADHERENCE TO DIABETIC SELF-CARE AND MANAGEMENT INCLUDING MEDICATIONS. [code = DIABETES MONITORING RN/SUPERVISOR CONCRETE STONE FABRICATING/FILM CREW MEMBER TO MONITOR BLOOD SUGAR LOG FOR BLOOD SUGAR READINGS THAT ARE BEING CHECKED BY PATIENT, CAREGIVER NEEDED FOR SIGNS AND SYMPTOMS OF HYPER/HYPOGLYCEMIA. PATIENT THERAPEUTIC BLOOD SUGAR PARAMETERS ARE 70 - 300. REPORT BLOOD SUGARS OUT OF RANGE TO PHYSICIAN. NURSE MAY PERFORM FINGER STICK BLOOD GLUCOSE NEEDED FOR SIGNS AND SYMPTOMS OF HYPO AND HYPERGLYCEMIA. RN/SUPERVISOR CONCRETE STONE FABRICATING/FILM CREW MEMBER TO MONITOR ADHERENCE OF PATIENT/CAREGIVER PERFORMING DIABETIC FOOT CARE AND MAY PERFORM DIABETIC FOOT CARE PRN. RN/SUPERVISOR CONCRETE STONE FABRICATING/FILM CREW MEMBER TO MONITOR FOR ADHERENCE TO DIABETIC SELF-CARE AND MANAGEMENT INCLUDING MEDICATIONS.] Future Scheduled Test HYPOTENSIO N MANAGEMENT; RN TO ASSESS AND TEACH/ FILM CREW MEMBER /SUPERVISOR CONCRETE STONE FABRICATING TO OBSERVE AND TEACH WARNING SIGNS AND SYMPTOMS TO AVOID HOSPITALIZATION. [code = HYPOTENSION MANAGEMENT; RN TO ASSESS AND TEACH/ FILM CREW MEMBER /SUPERVISOR CONCRETE STONE FABRICATING TO OBSERVE AND TEACH WARNING SIGNS AND SYMPTOMS TO AVOID HOSPITALIZATION.] Future Scheduled Test ARRHYTHMIA MANAGEMENT; RN TO ASSESS AND TEACH, FILM CREW MEMBER/SUPERVISOR CONCRETE STONE FABRICATING TO OBSERVE AND TEACH WARNING SIGNS AND SYMPTOMS TO AVOID HOSPITALIZATION. [code = ARRHYTHMIA MANAGEMENT; RN TO ASSESS AND TEACH, FILM CREW MEMBER/SUPERVISOR CONCRETE STONE FABRICATING TO OBSERVE AND TEACH WARNING SIGNS AND SYMPTOMS TO AVOID HOSPITALIZATION.] Future Scheduled Test MEDICATION MANAGEMENT; RN/FILM CREW MEMBER/SUPERVISOR CONCRETE STONE FABRICATING TO REVIEW MEDICATIONS FOR INTERACTIONS, EFFECTIVENESS OF DRUG THERAPY, AND SIGNS/SYMPTOMS OF ADVERSE REACTIONS. MAY INSTRUCT AND REINFORCE MEDICATION TEACHING RELATED TO THE USE OF MEDICATIONS, DOSAGE, FREQUENCY, PURPOSE, SIDE EFFECTS, AND TO REPORT COMPLICATIONS. [code = MEDICATION MANAGEMENT; RN/FILM CREW MEMBER/SUPERVISOR CONCRETE STONE FABRICATING TO REVIEW MEDICATIONS FOR INTERACTIONS, EFFECTIVENESS OF [...] EVAL UATE, OBSERVE / ASSESS, AND MONITOR, RESIDENT DOCTOR TO OBSERVE AND MONITOR, PROVIDE SKILLED THERAPEUTIC INTERVENTION, ACTIVITY, EDUCATION, AND TRAINING TO ADDRESS GEN. WEAKNESS, POOR OVERALL ACTIVITY TOLERANCE, AND FUNCTIONAL LIMITATIONS IMPACTING SAFETY AND INDEPENDENCE. BED MOBILITY (PT/RESIDENT DOCTOR) PT/RESIDENT DOCTOR TO PROVIDE GAIT TRAINING FOR IMPROVED MOBILITY AND /OR TO NORMALIZE GAIT PATTERN THERAPEUTIC EXERCISES AND ESTABLISHING A HOME EXERCISE PROGRAM (PT/RESIDENT DOCTOR) PT/RESIDENT DOCTOR TO PROVIDE STAIR TRAINING PT / RESIDENT DOCTOR TO MONITOR AND EDUCATE ON OXYGEN SATURATION DURING ADLS/IADLS, NOTIFY PHYSICIAN AND/OR THE RN CLINICAL DYNAMITE CARTRIDGE CRIMPER FOR PHYSICIAN NOTIFICATION AND IF O2 SATS BELOW PHYSICIAN ORDERED PARAMETERS AFTER 10 MIN OF REST PT / RESIDENT DOCTOR TO OBSERVE FOR EARLY SIGNS AND SYMPTOMS OF DEPRESSION OR DEPRESSION GETTING WORSE AND TO EDUCATE ON HOW TO FIND HELP. PT / RESIDENT DOCTOR MAY EDUCATE ON PAIN MANAGEMENT CLINICALLY INDICATED, INCLUDING NON-PHARMACOLOGICAL PAIN REDUCTION TECHNIQUES PT / RESIDENT DOCTOR TO MONITOR FOR HYPO/HYPERGLYCEMIA AND CONDUCT ROUTINE FOOT INSPECTIONS. RECORD PATIENT REPORTED BLOOD SUGAR LEVELS AND NOTIFY PHYSICIAN AND/OR THE RN CLINICAL DYNAMITE CARTRIDGE CRIMPER FOR PHYSICIAN NOTIFICATION IF BLOOD SUGAR LEVELS ARE OUTSIDE ORDERED PARAMETERS. TEACH PATIENT/CAREGIVER ON DAILY FOOT INSPECTIONS PT / RESIDENT DOCTOR TO INSTRUCT PATIENT/CAREGIVER ON RISK FOR HOSPITALIZATION/EMERGENCY ROOM VISITS, TEACH SIGNS AND SYMPTOMS THAT PUT PATIENT AT RISK, WHEN TO NOTIFY NURSE/PHYSICIAN OF COMPLICATIONS/DECLINE, AND WHEN TO CALL 911. PT/RESIDENT DOCTOR TO EDUCATE ON ARTHRITIS SELF-MANAGEMENT PT / RESIDENT DOCTOR TO EDUCATE ON HEART FAILURE SELF-MANAGEMENT PT / RESIDENT DOCTOR TO EDUCATE ON HYPERTENSION SELF-MANAGEMENT PT TO ASSESS / RESIDENT DOCTOR TO MONITOR CARDIO/RESPIRATORY SYSTEM; AND NOTIFY THE PHYSICIAN AND/OR THE RN CLINICAL DYNAMITE CARTRIDGE CRIMPER FOR PHYSICIAN NOTIFICATION FOR EARLY SIGNS AND SYMPTOMS OF EXACERBATION OR DETERIORATION. PT / RESIDENT DOCTOR TO EDUCATE ON ATRIAL FIBRILLATION SELF-MANAGEMENT. PT / RESIDENT DOCTOR TO EDUCATE ON PNEUMONIA / ASPIRATION PNEUMONIA SELF-MANAGEMENT. PT/RESIDENT DOCTOR TO IDENTIFY FALL RISK FACTORS; EDUCATE THE PATIENT/CAREGIVER ON WAYS TO REDUCE FALL RISK FACTORS AND ESTABLISH HOME EXERCISE PROGRAM TO MINIMIZE FALL RISK. MAY TEACH THE PATIENT FLOOR RECOVERY WHEN CLINICALLY APPROPRIATE [code = PT TO EVALUATE, OBSERVE / ASSESS, AND MONITOR, RESIDENT DOCTOR TO OBSERVE AND MONITOR, PROVIDE SKILLED THERAPEUTIC INTERVENTION, ACTIVITY, EDUCATION, AND TRAINING TO ADDRESS GEN. WEAKNESS, POOR OVERALL ACTIVITY TOLERANCE, AND FUNCTIONAL LIMITATIONS IMPACTING SAFETY AND INDEPENDENCE. BED MOBILITY (PT/RESIDENT DOCTOR) PT/RESIDENT DOCTOR TO PROVIDE GAIT TRAINING FOR IMPROVED MOBILITY AND /OR TO NORMALIZE GAIT PATTERN THERAPEUTIC EXERCISES AND ESTABLISHING A HOME EXERCISE PROGRAM (PT/RESIDENT DOCTOR) PT/RESIDENT DOCTOR TO PROVIDE STAIR TRAINING PT / RESIDENT DOCTOR TO MONITOR AND EDUCATE ON OXYGEN SATURATION DURING ADLS/IADLS, NOTIFY PHYSICIAN AND/OR THE RN CLINICAL DYNAMITE CARTRIDGE CRIMPER FOR PHYSICIAN NOTIFICATION AND IF O2 SATS BELOW PHYSICIAN ORDERED PARAMETERS AFTER 10 MIN OF REST PT / RESIDENT DOCTOR TO OBSERVE FOR EARLY SIGNS AND SYMPTOMS OF DEPRESSION OR DEPRESSION GETTING WORSE AND TO EDUCATE ON HOW TO FIND HELP. PT / RESIDENT DOCTOR MAY EDUCATE ON PAIN MANAGEMENT CLINICALLY INDICATED, INCLUDING NON-PHARMACOLOGICAL PAIN REDUCTION TECHNIQUES PT / RESIDENT DOCTOR TO MONITOR FOR HYPO/HYPERGLYCEMIA AND CONDUCT ROUTINE FOOT INSPECTIONS. RECORD PATIENT REPORTED BLOOD SUGAR LEVELS AND NOTIFY PHYSICIAN AND/OR THE RN CLINICAL DYNAMITE CARTRIDGE CRIMPER FOR PHYSICIAN NOTIFICATION IF BLOOD SUGAR LEVELS ARE OUTSIDE ORDERED PARAMETERS. TEACH PATIENT/CAREGIVER ON DAILY FOOT INSPECTIONS PT / RESIDENT DOCTOR TO INSTRUCT PATIENT/CAREGIVER ON RISK FOR HOSPITALIZATION/EMERGENCY ROOM VISITS, TEACH SIGNS AND SYMPTOMS THAT PUT PATIENT AT RISK, WHEN TO NOTIFY NURSE/PHYSICIAN OF COMPLICATIONS/DECLINE, AND WHEN TO CALL 911. PT/RESIDENT DOCTOR TO EDUCATE ON ARTHRITIS SELF-MANAGEMENT PT / RESIDENT DOCTOR TO EDUCATE ON HEART FAILURE SELF-MANAGEMENT PT / RESIDENT DOCTOR TO EDUCATE ON HYPERTENSION SELF-MANAGEMENT PT TO ASSESS / RESIDENT DOCTOR TO MONITOR CARDIO/RESPIRATORY SYSTEM; AND NOTIFY THE PHYSICIAN AND/OR THE RN CLINICAL DYNAMITE CARTRIDGE CRIMPER FOR PHYSICIAN NOTIFICATION FOR EARLY SIGNS AND SYMPTOMS OF EXACERBATION OR DETERIORATION. PT / RESIDENT DOCTOR TO EDUCATE ON ATRIAL FIBRILLATION SELF-MANAGEMENT. PT / RESIDENT DOCTOR TO EDUCATE ON PNEUMONIA / ASPIRATION PNEUMONIA SELF-MANAGEMENT. PT/RESIDENT DOCTOR TO IDENTIFY FALL RISK FACTORS; EDUCATE THE PATIENT/CAREGIVER ON WAYS TO REDUCE FALL RISK FACTORS AND ESTABLISH HOME EXERCISE PROGRAM TO MINIMIZE FALL RISK. MAY TEACH THE PATIENT FLOOR RECOVERY WHEN CLINICALLY APPROPRIATE] Future Scheduled Test AGENCY MAY PERFORM A RESUMPTION OF CARE VISIT FOLLOWING ANY HOSPITAL ADMISSION. OT TO EVALUATE, OBSERVE / ASSESS, AND MONITOR, HOUSE VISITOR TO OBSERVE AND MONITOR, PROVIDE SKILLED THERAPEUTIC INTERVENTION, ACTIVITY, EDUCATION, AND TRAINING TO ADDRESS SAFETY AND INDEPENDENCE OF ADLS AND FUNCTIONAL TRANSFERS IN HOME ENVIRONMENT. ACTIVITIES OF DAILY LIVING (OT/MARIANNE) THERAPEUTIC EXERCISE (OT/HOUSE VISITOR) ENERGY CONSERVATION/ACTIVITY DEMAND (OT/HOUSE VISITOR) OT/HOUSE VISITOR TO MONITOR AND EDUCATE ON OXYGEN SATURATION DURING ADLS/IADLS, NOTIFY PHYSICIAN AND/OR THE RN CLINICAL DYNAMITE CARTRIDGE CRIMPER FOR PHYSICIAN NOTIFICATION AND IF O2 SATS BELOW 90% AFTER 10 MIN OF REST. OT / HOUSE VISITOR TO IDENTIFY FALL RISK FACTORS; EDUCATE THE PATIENT/CAREGIVER ON WAYS TO REDUCE FALL RISK FACTORS AND ESTABLISH HOME EXERCISE PROGRAM TO MINIMIZE FALL RISK. MAY TEACH THE PATIENT FLOOR RECOVERY WHEN CLINICALLY APPROPRIATE. OT/HOUSE VISITOR TO EDUCATE ON HYPERTENSION SELF-MANAGEMENT OT/MARIANNE TO EDUCATE ON ATRIAL FIBRILLATION SELF-MANAGEMENT. [code = AGENCY MAY PERFORM A RESUMPTION OF CARE VISIT FOLLOWING ANY HOSPITAL ADMISSION. OT TO EVALUATE, OBSERVE / ASSESS, AND MONITOR, HOUSE VISITOR TO OBSERVE AND MONITOR, PROVIDE SKILLED THERAPEUTIC INTERVENTION, ACTIVITY, EDUCATION, AND TRAINING TO ADDRESS SAFETY AND INDEPENDENCE OF ADLS AND FUNCTIONAL TRANSFERS IN HOME ENVIRONMENT. ACTIVITIES OF DAILY LIVING (OT/MARIANNE) THERAPEUTIC EXERCISE (OT/HOUSE VISITOR) ENERGY CONSERVATION/ACTIVITY DEMAND (OT/MARIANNE) OT/HOUSE VISITOR TO MONITOR AND EDUCATE ON OXYGEN SATURATION DURING ADLS/IADLS, NOTIFY PHYSICIAN AND/OR THE RN CLINICAL DYNAMITE CARTRIDGE CRIMPER FOR PHYSICIAN NOTIFICATION AND IF O2 SATS BELOW 90% AFTER 10 MIN OF REST. OT / MARIANNE TO IDENTIFY FALL RISK FACTORS; EDUCATE THE PATIENT/CAREGIVER ON WAYS TO REDUCE FALL RISK FACTORS AND ESTABLISH HOME EXERCISE PROGRAM TO MINIMIZE FALL RISK. MAY TEACH THE PATIENT FLOOR RECOVERY WHEN CLINICALLY APPROPRIATE. OT/HOUSE VISITOR TO EDUCATE ON HYPERTENSION SELF-MANAGEMENT OT/MARIANNE TO [...] OF SKIN INTEGRITY ISSUES FROM [place] WITHIN 2 WKS. PT STG: PATIENT WILL [...] TO SAFELY NEGOTIATE STAIRS FROM [place] WITH 2 STEPS W/O HANDRAIL VIA FRONT [...] End Date/Time Encounter Type Admission Type Attending [facility] Care Department Encounter ID Discharge Date Discharge Status Discharge Condition Discharge Reason Percent Goals Met 2025-02-07 00:00:00 2025-04-07 00:00:00 Outpatient NEW ADMISSION [facility] [id number] 26.42
--- OUTSIDE RECORDS SUMMARY | 2025-04-06 18:00 | XMS_ITS | Clinical Summary ---
Author Organization Unknown Care Team Providers Care Construction Controller Name Role Phone DIGNA ARIEL, ESTRELLA Unavailable Unava dinora STOKES RN, FRANKIE Unavailable Unavailabl e KARI PT, DIDI Unavailable Unavailable NAT LOGISTIC SPECIALIST, GAUDENCIO Unavailable Unavailabl e RADHA OT, ROLANDO Unavailable Unavailable JOANNE STEVEN, HATTIE Unavailable Unavailable Payers Payer Name Policy Type Policy Number Effective Date Expira tion Date MEDICARE.[facility] [id number] Problems Condition Name Condition Details Condition Category Status Onset Date Resolution Date Last Treatment Date Treating Clinician Comments 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 02-07 [...] OF PNEUMONIA (RECURRENT) Active 02-07 00:00: 00 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 OF SYSTEMIC STEROIDS Active 02-07 [...] 80 mg tablet 02-07 00:00: 00 Yes [id number] CHOLESTEROL 1 tablet DAILY 1 tablet DAILY (route: oral) Med Classific ation: Cardiovas cular Therapy Agents digoxin 125 mcg (0.125 mg) tablet 02-07 00:00: 00 02-21 23:59 :00 No [id number] HEART RHYTHM 1 tablet DAILY 1 tablet DAILY (route: oral) Med Classific ation: Cardiovas cular Therapy Agents escitalopra m 10 mg tablet 02-07 00:00: 00 Yes [id number] MOOD 1 tablet DAILY 1 tablet DAILY (route: oral) Med Classific ation: Central Nervous System Agents ezetimibe 10 mg tablet 02-07 00:00: 00 Yes [id number] CHOLESTEROL 1 tablet DAILY 1 tablet DAILY (route: oral) Med Classific ation: Cardiovas cular Therapy Agents metoprolol succinate ER 25 mg tablet,exte nded release 24 hr 02-07 00:00: 00 02-21 23:59 :00 No [id number] BLOOD PRESSURE 0.5 tablet DAILY 0.5 tablet DAILY (route: oral) Med Classific ation: Cardiovas cular Therapy Agents pantoprazol e 40 mg tablet,joão yed release 02-07 00:00: 00 02-21 23:59 :00 No [id number] STOMACH ACID 1 tablet DAILY 1 tablet DAILY (route: oral) Med Classific ation: Gastroint estinal Therapy Agents prednisone 5 mg tablet 02-07 00:00: 00 Yes [id number] ADRENAL INSUFFICIEN CY 1 tablet DAILY 1 tablet DAILY (route: oral) Med Classific ation: Endocrine spironolact one 25 mg tablet 02-07 00:00: 00 Yes [id number] FLUID RETENTION 0.5 tablet DAILY 0.5 tablet DAILY (route: oral) Med Classific ation: Cardiovas cular Therapy Agents tamsulosin 0.4 mg capsule 02-07 00:00: 00 02-21 23:59 :00 No [id number] URINARY HEALTH 1 capsule DAILY 1 capsule DAILY (route: oral) Med Classific ation: Genitouri nary Therapy acetaminoph en 325 mg tablet 2024-05 00:00: 00 Yes [id number] PAIN 2 tablet 2 TIMES DAILY 2 tablet 2 TIMES DAILY (route: oral) Med Classific ation: Analgesic , Anti-infl ammatory or Antipyret ic aspirin 81 mg tablet 2024-05 00:00: 00 Yes [id number] ANTICOAGULA NT 1 tablet DAILY 1 tablet DAILY (route: oral) Med Classific ation: Hematolog ical Agents ipratropium 0.5 mg-albutero l 3 mg (2.5 mg base)/3 mL nebulizatio n soln 2024-05 00:00: 00 Yes [id number] COPD 3 mL EVERY 6 HOURS 3 mL EVERY 6 HOURS (route: inhalation ) Med Classific ation: Respirato ry Therapy Agents Lanoxin 62.5 mcg (0.0625 mg) tablet 2024-05 00:00: 00 Yes [id number] CHF 1 tablet DAILY 1 tablet DAILY (route: oral) Med Classific ation: Cardiovas cular Therapy Agents Lasix 20 mg tablet 2024-05 00:00: 00 Yes [id number] CHF 1 tablet DAILY 1 tablet DAILY (route: oral) Med Classific ation: Cardiovas cular Therapy Agents Toprol XL 25 mg tablet,exte nded release 2024-05 00:00: 00 Yes [id number] BP 25 mg DAILY 25 mg DAILY [...] SYSTEM MANAGEMENT; RN TO ASSESS AND TEACH, TANNING CONSULTANT/EXPEDITER CLERK TO OBSERVE AND TEACH RELATED TO ALTERED RESPIRATORY STATUS TO MINIMIZE COMPLICATIONS AND REDUCE HOSPITALIZATION. [code = SN 1WK9 PT 1WK1 OT EFFECTIVE 02/10/2025K1 RESPIRATORY SYSTEM MANAGEMENT; RN TO ASSESS AND TEACH, TANNING CONSULTANT/EXPEDITER CLERK TO OBSERVE AND TEACH RELATED TO ALTERED RESPIRATORY STATUS TO MINIMIZE COMPLICATIONS AND REDUCE HOSPITALIZATION.] Future Scheduled Test TRACHEOSTO MY CARE MANAGEMENT; RN/TANNING CONSULTANT/EXPEDITER CLERK TO INSTRUCT PATIENT/CAREGIVER ON CARE AND MANAGEMENT OF TRACHEOSTOMY. RN/ TANNING CONSULTANT/EXPEDITER CLERK TO PROVIDE SKILLED TEACHING ON TRACH COLLAR SUCTIONING PRN WITH 14 FR SUCTION CATHETER PER PATIENT TRACH CARE WITH INNER CANNULA: REMOVE INNER CANNULA, CLEANSE WITH NORMAL SALINE AND OR STERILE WATER AND REINSERT NON-DISPOSABLE CANNULA SIZE OF INNER CANNULA 5 BROOKS [code = TRACHEOSTOMY CARE MANAGEMENT; RN/TANNING CONSULTANT/EXPEDITER CLERK TO INSTRUCT PATIENT/CAREGIVER ON CARE AND MANAGEMENT OF TRACHEOSTOMY. RN/ TANNING CONSULTANT/EXPEDITER CLERK TO PROVIDE SKILLED TEACHING ON TRACH COLLAR SUCTIONING PRN WITH 14 FR SUCTION CATHETER PER PATIENT TRACH CARE WITH INNER CANNULA: REMOVE INNER CANNULA, CLEANSE WITH NORMAL SALINE AND OR STERILE WATER AND REINSERT NON-DISPOSABLE CANNULA SIZE OF INNER CANNULA 5 BROOKS] Future Scheduled Test FALL REDUC TION MANAGEMENT; RN TO ASSESS AND OBSERVE, TANNING CONSULTANT/EXPEDITER CLERK TO OBSERVE FALL RISK FACTORS AND EDUCATE PATIENT/CAREGIVER ON STRATEGIES TO MINIMIZE THE RISK OF FALLING. [code = FALL REDUCTION MANAGEMENT; RN TO ASSESS AND OBSERVE, TANNING CONSULTANT/EXPEDITER CLERK TO OBSERVE FALL RISK FACTORS AND EDUCATE PATIENT/CAREGIVER ON STRATEGIES TO MINIMIZE THE RISK OF FALLING.] Future Scheduled Test ANEMIA MAN AGEMENT; RN TO ASSESS AND TEACH, EXPEDITER CLERK/TANNING CONSULTANT TO OBSERVE AND TEACH AND PROVIDE EDUCATION ON ANEMIA. [code = ANEMIA MANAGEMENT; RN TO ASSESS AND TEACH, EXPEDITER CLERK/TANNING CONSULTANT TO OBSERVE AND TEACH AND PROVIDE EDUCATION ON ANEMIA.] Future Scheduled Test RN TO OBSE RVE, ASSESS, EVALUATE, AND DEVELOP AN INDIVIDUALIZED PLAN OF CARE. AGENCY MAY ACCEPT ORDERS FROM CONSULTING PHYSICIANS RN TO OBSERVE AND ASSESS, TANNING CONSULTANT/EXPEDITER CLERK TO OBSERVE FOR RISK FOR FALLS AND INSTRUCT IN FALL PREVENTION, HOME SAFETY, MEDICATION MANAGEMENT, INFECTION PREVENTION, AND NUTRITION MANAGEMENT. RN/TANNING CONSULTANT/EXPEDITER CLERK NURSE MAY PERFORM O2 SATURATION LEVEL ON ADMISSION AND PRN FOR RN TO ASSESS/TANNING CONSULTANT TO OBSERVE PATIENT, WITH NOTIFICATION TO THE PHYSICIAN IF SATURATION IS 90% IN THE ABSENCE OF MORE SPECIFIC PARAMETERS FROM THE PHYSICIAN. AGENCY MAY PERFORM A RESUMPTION OF CARE VISIT FOLLOWING ANY HOSPITAL ADMISSION. RN/TANNING CONSULTANT/EXPEDITER CLERK TO MONITOR CO-MORBID CONDITIONS LISTED ON THE PLAN OF CARE AND ANY NEW CONDITIONS THAT PRESENT THEMSELVES DURING THIS EPISODE TO IDENTIFY CHANGES AND INTERVENE TO MINIMIZE COMPLICATIONS. [code = RN TO OBSERVE, ASSESS, EVALUATE, AND DEVELOP AN INDIVIDUALIZED PLAN OF CARE. AGENCY MAY ACCEPT ORDERS FROM CONSULTING PHYSICIANS RN TO OBSERVE AND ASSESS, TANNING CONSULTANT/EXPEDITER CLERK TO OBSERVE FOR RISK FOR FALLS AND INSTRUCT IN FALL PREVENTION, HOME SAFETY, MEDICATION MANAGEMENT, INFECTION PREVENTION, AND NUTRITION MANAGEMENT. RN/TANNING CONSULTANT/EXPEDITER CLERK NURSE MAY PERFORM O2 SATURATION LEVEL ON ADMISSION AND PRN FOR RN TO ASSESS/TANNING CONSULTANT TO OBSERVE PATIENT, WITH NOTIFICATION TO THE PHYSICIAN IF SATURATION IS 90% IN THE ABSENCE OF MORE SPECIFIC PARAMETERS FROM THE PHYSICIAN. AGENCY MAY PERFORM A RESUMPTION OF CARE VISIT FOLLOWING ANY HOSPITAL ADMISSION. RN/TANNING CONSULTANT/EXPEDITER CLERK TO MONITOR CO-MORBID CONDITIONS LISTED ON THE PLAN OF CARE AND ANY NEW CONDITIONS THAT PRESENT THEMSELVES DURING THIS EPISODE TO IDENTIFY CHANGES AND INTERVENE TO MINIMIZE COMPLICATIONS.] Future Scheduled Test PAIN MANAG EMENT; RN TO ASSESS AND TEACH, EXPEDITER CLERK/TANNING CONSULTANT TO OBSERVE AND TEACH AND PROVIDE EDUCATION ON PAIN MANAGEMENT TECHNIQUES. [code = PAIN MANAGEMENT; RN TO ASSESS AND TEACH, EXPEDITER CLERK/TANNING CONSULTANT TO OBSERVE AND TEACH AND PROVIDE EDUCATION ON PAIN MANAGEMENT TECHNIQUES.] Future Scheduled Test RISK FOR H OSPITALIZATION; RN TO ASSESS/TEACH, EXPEDITER CLERK/TANNING CONSULTANT TO OBSERVE/TEACH PATIENT/CAREGIVER ON RISK FOR HOSPITALIZATION/EMERGENCY ROOM VISITS, TEACH SIGNS AND SYMPTOMS THAT PUT PATIENT AT RISK, WHEN TO NOTIFY NURSE/PHYSICIAN OF COMPLICATIONS/DECLINE, AND WHEN TO CALL 911. [code = RISK FOR HOSPITALIZATION; RN TO ASSESS/TEACH, EXPEDITER CLERK/TANNING CONSULTANT TO OBSERVE/TEACH PATIENT/CAREGIVER ON RISK FOR HOSPITALIZATION/EMERGENCY ROOM VISITS, TEACH SIGNS AND SYMPTOMS THAT PUT PATIENT AT RISK, WHEN TO NOTIFY NURSE/PHYSICIAN OF COMPLICATIONS/DECLINE, AND WHEN TO CALL 911.] Future Scheduled Test CARDIOVASC ULAR SYSTEM; RN TO ASSESS/TEACH, TANNING CONSULTANT/EXPEDITER CLERK TO OBSERVE/TEACH RELATED TO ALTERED CARDIOVASCULAR STATUS TO MINIMIZE COMPLICATIONS AND REDUCE HOSPITALIZATION. [code = CARDIOVASCULAR SYSTEM; RN TO ASSESS/TEACH, TANNING CONSULTANT/EXPEDITER CLERK TO OBSERVE/TEACH RELATED TO ALTERED CARDIOVASCULAR STATUS TO MINIMIZE COMPLICATIONS AND REDUCE HOSPITALIZATION.] Future Scheduled Test HYPERTENSI ON MANAGEMENT; RN TO ASSESS AND TEACH, TANNING CONSULTANT/EXPEDITER CLERK TO OBSERVE AND TEACH WARNING SIGNS AND SYMPTOMS TO AVOID HOSPITALIZATION. [code = HYPERTENSION MANAGEMENT; RN TO ASSESS AND TEACH, TANNING CONSULTANT/EXPEDITER CLERK TO OBSERVE AND TEACH WARNING SIGNS AND SYMPTOMS TO AVOID HOSPITALIZATION.] Future Scheduled Test HEART FAIL URE MONITORING RN/EXPEDITER CLERK/TANNING CONSULTANT TO MONITOR PATIENT FOR SIGNS AND SYMPTOMS OF HEART FAILURE EXACERBATION, MONITOR FOR ADHERENCE WITH MEDICATION AND HEART FAILURE MANAGEMENT REGIMEN. [code = HEART FAILURE MONITORING RN/EXPEDITER CLERK/TANNING CONSULTANT TO MONITOR PATIENT FOR SIGNS AND SYMPTOMS OF HEART FAILURE EXACERBATION, MONITOR FOR ADHERENCE WITH MEDICATION AND HEART FAILURE MANAGEMENT REGIMEN.] Future Scheduled Test DIABETES M ONITORING RN/EXPEDITER CLERK/TANNING CONSULTANT TO MONITOR BLOOD SUGAR LOG FOR BLOOD SUGAR READINGS THAT ARE BEING CHECKED BY PATIENT, CAREGIVER NEEDED FOR SIGNS AND SYMPTOMS OF HYPER/HYPOGLYCEMIA. PATIENT THERAPEUTIC BLOOD SUGAR PARAMETERS ARE 70 - 300. REPORT BLOOD SUGARS OUT OF RANGE TO PHYSICIAN. NURSE MAY PERFORM FINGER STICK BLOOD GLUCOSE NEEDED FOR SIGNS AND SYMPTOMS OF HYPO AND HYPERGLYCEMIA. RN/EXPEDITER CLERK/TANNING CONSULTANT TO MONITOR ADHERENCE OF PATIENT/CAREGIVER PERFORMING DIABETIC FOOT CARE AND MAY PERFORM DIABETIC FOOT CARE PRN. RN/EXPEDITER CLERK/TANNING CONSULTANT TO MONITOR FOR ADHERENCE TO DIABETIC SELF-CARE AND MANAGEMENT INCLUDING MEDICATIONS. [code = DIABETES MONITORING RN/EXPEDITER CLERK/TANNING CONSULTANT TO MONITOR BLOOD SUGAR LOG FOR BLOOD SUGAR READINGS THAT ARE BEING CHECKED BY PATIENT, CAREGIVER NEEDED FOR SIGNS AND SYMPTOMS OF HYPER/HYPOGLYCEMIA. PATIENT THERAPEUTIC BLOOD SUGAR PARAMETERS ARE 70 - 300. REPORT BLOOD SUGARS OUT OF RANGE TO PHYSICIAN. NURSE MAY PERFORM FINGER STICK BLOOD GLUCOSE NEEDED FOR SIGNS AND SYMPTOMS OF HYPO AND HYPERGLYCEMIA. RN/EXPEDITER CLERK/TANNING CONSULTANT TO MONITOR ADHERENCE OF PATIENT/CAREGIVER PERFORMING DIABETIC FOOT CARE AND MAY PERFORM DIABETIC FOOT CARE PRN. RN/EXPEDITER CLERK/TANNING CONSULTANT TO MONITOR FOR ADHERENCE TO DIABETIC SELF-CARE AND MANAGEMENT INCLUDING MEDICATIONS.] Future Scheduled Test HYPOTENSIO N MANAGEMENT; RN TO ASSESS AND TEACH/ TANNING CONSULTANT /EXPEDITER CLERK TO OBSERVE AND TEACH WARNING SIGNS AND SYMPTOMS TO AVOID HOSPITALIZATION. [code = HYPOTENSION MANAGEMENT; RN TO ASSESS AND TEACH/ TANNING CONSULTANT /EXPEDITER CLERK TO OBSERVE AND TEACH WARNING SIGNS AND SYMPTOMS TO AVOID HOSPITALIZATION.] Future Scheduled Test ARRHYTHMIA MANAGEMENT; RN TO ASSESS AND TEACH, TANNING CONSULTANT/EXPEDITER CLERK TO OBSERVE AND TEACH WARNING SIGNS AND SYMPTOMS TO AVOID HOSPITALIZATION. [code = ARRHYTHMIA MANAGEMENT; RN TO ASSESS AND TEACH, TANNING CONSULTANT/EXPEDITER CLERK TO OBSERVE AND TEACH WARNING SIGNS AND SYMPTOMS TO AVOID HOSPITALIZATION.] Future Scheduled Test MEDICATION MANAGEMENT; RN/TANNING CONSULTANT/EXPEDITER CLERK TO REVIEW MEDICATIONS FOR INTERACTIONS, EFFECTIVENESS OF DRUG THERAPY, AND SIGNS/SYMPTOMS OF ADVERSE REACTIONS. MAY INSTRUCT AND REINFORCE MEDICATION TEACHING RELATED TO THE USE OF MEDICATIONS, DOSAGE, FREQUENCY, PURPOSE, SIDE EFFECTS, AND TO REPORT COMPLICATIONS. [code = MEDICATION MANAGEMENT; RN/TANNING CONSULTANT/EXPEDITER CLERK TO REVIEW MEDICATIONS FOR INTERACTIONS, EFFECTIVENESS OF [...] EVAL UATE, OBSERVE / ASSESS, AND MONITOR, LOGISTIC SPECIALIST TO OBSERVE AND MONITOR, PROVIDE SKILLED THERAPEUTIC INTERVENTION, ACTIVITY, EDUCATION, AND TRAINING TO ADDRESS GEN. WEAKNESS, POOR OVERALL ACTIVITY TOLERANCE, AND FUNCTIONAL LIMITATIONS IMPACTING SAFETY AND INDEPENDENCE. BED MOBILITY (PT/LOGISTIC SPECIALIST) PT/LOGISTIC SPECIALIST TO PROVIDE GAIT TRAINING FOR IMPROVED MOBILITY AND /OR TO NORMALIZE GAIT PATTERN THERAPEUTIC EXERCISES AND ESTABLISHING A HOME EXERCISE PROGRAM (PT/LOGISTIC SPECIALIST) PT/LOGISTIC SPECIALIST TO PROVIDE STAIR TRAINING PT / LOGISTIC SPECIALIST TO MONITOR AND EDUCATE ON OXYGEN SATURATION DURING ADLS/IADLS, NOTIFY PHYSICIAN AND/OR THE RN CLINICAL MOLD UNLOADER FOR PHYSICIAN NOTIFICATION AND IF O2 SATS BELOW PHYSICIAN ORDERED PARAMETERS AFTER 10 MIN OF REST PT / LOGISTIC SPECIALIST TO OBSERVE FOR EARLY SIGNS AND SYMPTOMS OF DEPRESSION OR DEPRESSION GETTING WORSE AND TO EDUCATE ON HOW TO FIND HELP. PT / LOGISTIC SPECIALIST MAY EDUCATE ON PAIN MANAGEMENT CLINICALLY INDICATED, INCLUDING NON-PHARMACOLOGICAL PAIN REDUCTION TECHNIQUES PT / LOGISTIC SPECIALIST TO MONITOR FOR HYPO/HYPERGLYCEMIA AND CONDUCT ROUTINE FOOT INSPECTIONS. RECORD PATIENT REPORTED BLOOD SUGAR LEVELS AND NOTIFY PHYSICIAN AND/OR THE RN CLINICAL MOLD UNLOADER FOR PHYSICIAN NOTIFICATION IF BLOOD SUGAR LEVELS ARE OUTSIDE ORDERED PARAMETERS. TEACH PATIENT/CAREGIVER ON DAILY FOOT INSPECTIONS PT / LOGISTIC SPECIALIST TO INSTRUCT PATIENT/CAREGIVER ON RISK FOR HOSPITALIZATION/EMERGENCY ROOM VISITS, TEACH SIGNS AND SYMPTOMS THAT PUT PATIENT AT RISK, WHEN TO NOTIFY NURSE/PHYSICIAN OF COMPLICATIONS/DECLINE, AND WHEN TO CALL 911. PT/LOGISTIC SPECIALIST TO EDUCATE ON ARTHRITIS SELF-MANAGEMENT PT / LOGISTIC SPECIALIST TO EDUCATE ON HEART FAILURE SELF-MANAGEMENT PT / LOGISTIC SPECIALIST TO EDUCATE ON HYPERTENSION SELF-MANAGEMENT PT TO ASSESS / LOGISTIC SPECIALIST TO MONITOR CARDIO/RESPIRATORY SYSTEM; AND NOTIFY THE PHYSICIAN AND/OR THE RN CLINICAL MOLD UNLOADER FOR PHYSICIAN NOTIFICATION FOR EARLY SIGNS AND SYMPTOMS OF EXACERBATION OR DETERIORATION. PT / LOGISTIC SPECIALIST TO EDUCATE ON ATRIAL FIBRILLATION SELF-MANAGEMENT. PT / LOGISTIC SPECIALIST TO EDUCATE ON PNEUMONIA / ASPIRATION PNEUMONIA SELF-MANAGEMENT. PT/LOGISTIC SPECIALIST TO IDENTIFY FALL RISK FACTORS; EDUCATE THE PATIENT/CAREGIVER ON WAYS TO REDUCE FALL RISK FACTORS AND ESTABLISH HOME EXERCISE PROGRAM TO MINIMIZE FALL RISK. MAY TEACH THE PATIENT FLOOR RECOVERY WHEN CLINICALLY APPROPRIATE [code = PT TO EVALUATE, OBSERVE / ASSESS, AND MONITOR, LOGISTIC SPECIALIST TO OBSERVE AND MONITOR, PROVIDE SKILLED THERAPEUTIC INTERVENTION, ACTIVITY, EDUCATION, AND TRAINING TO ADDRESS GEN. WEAKNESS, POOR OVERALL ACTIVITY TOLERANCE, AND FUNCTIONAL LIMITATIONS IMPACTING SAFETY AND INDEPENDENCE. BED MOBILITY (PT/LOGISTIC SPECIALIST) PT/LOGISTIC SPECIALIST TO PROVIDE GAIT TRAINING FOR IMPROVED MOBILITY AND /OR TO NORMALIZE GAIT PATTERN THERAPEUTIC EXERCISES AND ESTABLISHING A HOME EXERCISE PROGRAM (PT/LOGISTIC SPECIALIST) PT/LOGISTIC SPECIALIST TO PROVIDE STAIR TRAINING PT / LOGISTIC SPECIALIST TO MONITOR AND EDUCATE ON OXYGEN SATURATION DURING ADLS/IADLS, NOTIFY PHYSICIAN AND/OR THE RN CLINICAL MOLD UNLOADER FOR PHYSICIAN NOTIFICATION AND IF O2 SATS BELOW PHYSICIAN ORDERED PARAMETERS AFTER 10 MIN OF REST PT / LOGISTIC SPECIALIST TO OBSERVE FOR EARLY SIGNS AND SYMPTOMS OF DEPRESSION OR DEPRESSION GETTING WORSE AND TO EDUCATE ON HOW TO FIND HELP. PT / LOGISTIC SPECIALIST MAY EDUCATE ON PAIN MANAGEMENT CLINICALLY INDICATED, INCLUDING NON-PHARMACOLOGICAL PAIN REDUCTION TECHNIQUES PT / LOGISTIC SPECIALIST TO MONITOR FOR HYPO/HYPERGLYCEMIA AND CONDUCT ROUTINE FOOT INSPECTIONS. RECORD PATIENT REPORTED BLOOD SUGAR LEVELS AND NOTIFY PHYSICIAN AND/OR THE RN CLINICAL MOLD UNLOADER FOR PHYSICIAN NOTIFICATION IF BLOOD SUGAR LEVELS ARE OUTSIDE ORDERED PARAMETERS. TEACH PATIENT/CAREGIVER ON DAILY FOOT INSPECTIONS PT / LOGISTIC SPECIALIST TO INSTRUCT PATIENT/CAREGIVER ON RISK FOR HOSPITALIZATION/EMERGENCY ROOM VISITS, TEACH SIGNS AND SYMPTOMS THAT PUT PATIENT AT RISK, WHEN TO NOTIFY NURSE/PHYSICIAN OF COMPLICATIONS/DECLINE, AND WHEN TO CALL 911. PT/LOGISTIC SPECIALIST TO EDUCATE ON ARTHRITIS SELF-MANAGEMENT PT / LOGISTIC SPECIALIST TO EDUCATE ON HEART FAILURE SELF-MANAGEMENT PT / LOGISTIC SPECIALIST TO EDUCATE ON HYPERTENSION SELF-MANAGEMENT PT TO ASSESS / LOGISTIC SPECIALIST TO MONITOR CARDIO/RESPIRATORY SYSTEM; AND NOTIFY THE PHYSICIAN AND/OR THE RN CLINICAL MOLD UNLOADER FOR PHYSICIAN NOTIFICATION FOR EARLY SIGNS AND SYMPTOMS OF EXACERBATION OR DETERIORATION. PT / LOGISTIC SPECIALIST TO EDUCATE ON ATRIAL FIBRILLATION SELF-MANAGEMENT. PT / LOGISTIC SPECIALIST TO EDUCATE ON PNEUMONIA / ASPIRATION PNEUMONIA SELF-MANAGEMENT. PT/LOGISTIC SPECIALIST TO IDENTIFY FALL RISK FACTORS; EDUCATE THE PATIENT/CAREGIVER ON WAYS TO REDUCE FALL RISK FACTORS AND ESTABLISH HOME EXERCISE PROGRAM TO MINIMIZE FALL RISK. MAY TEACH THE PATIENT FLOOR RECOVERY WHEN CLINICALLY APPROPRIATE] Future Scheduled Test AGENCY MAY PERFORM A RESUMPTION OF CARE VISIT FOLLOWING ANY HOSPITAL ADMISSION. OT TO EVALUATE, OBSERVE / ASSESS, AND MONITOR, ENGINEERING TEST MECHANIC TO OBSERVE AND MONITOR, PROVIDE SKILLED THERAPEUTIC INTERVENTION, ACTIVITY, EDUCATION, AND TRAINING TO ADDRESS SAFETY AND INDEPENDENCE OF ADLS AND FUNCTIONAL TRANSFERS IN HOME ENVIRONMENT. ACTIVITIES OF DAILY LIVING (OT/MARIANNE) THERAPEUTIC EXERCISE (OT/ENGINEERING TEST MECHANIC) ENERGY CONSERVATION/ACTIVITY DEMAND (OT/ENGINEERING TEST MECHANIC) OT/ENGINEERING TEST MECHANIC TO MONITOR AND EDUCATE ON OXYGEN SATURATION DURING ADLS/IADLS, NOTIFY PHYSICIAN AND/OR THE RN CLINICAL MOLD UNLOADER FOR PHYSICIAN NOTIFICATION AND IF O2 SATS BELOW 90% AFTER 10 MIN OF REST. OT / ENGINEERING TEST MECHANIC TO IDENTIFY FALL RISK FACTORS; EDUCATE THE PATIENT/CAREGIVER ON WAYS TO REDUCE FALL RISK FACTORS AND ESTABLISH HOME EXERCISE PROGRAM TO MINIMIZE FALL RISK. MAY TEACH THE PATIENT FLOOR RECOVERY WHEN CLINICALLY APPROPRIATE. OT/ENGINEERING TEST MECHANIC TO EDUCATE ON HYPERTENSION SELF-MANAGEMENT OT/MARIANNE TO EDUCATE ON ATRIAL FIBRILLATION SELF-MANAGEMENT. [code = AGENCY MAY PERFORM A RESUMPTION OF CARE VISIT FOLLOWING ANY HOSPITAL ADMISSION. OT TO EVALUATE, OBSERVE / ASSESS, AND MONITOR, ENGINEERING TEST MECHANIC TO OBSERVE AND MONITOR, PROVIDE SKILLED THERAPEUTIC INTERVENTION, ACTIVITY, EDUCATION, AND TRAINING TO ADDRESS SAFETY AND INDEPENDENCE OF ADLS AND FUNCTIONAL TRANSFERS IN HOME ENVIRONMENT. ACTIVITIES OF DAILY LIVING (OT/MARIANNE) THERAPEUTIC EXERCISE (OT/ENGINEERING TEST MECHANIC) ENERGY CONSERVATION/ACTIVITY DEMAND (OT/MARIANNE) OT/ENGINEERING TEST MECHANIC TO MONITOR AND EDUCATE ON OXYGEN SATURATION DURING ADLS/IADLS, NOTIFY PHYSICIAN AND/OR THE RN CLINICAL MOLD UNLOADER FOR PHYSICIAN NOTIFICATION AND IF O2 SATS BELOW 90% AFTER 10 MIN OF REST. OT / MARIANNE TO IDENTIFY FALL RISK FACTORS; EDUCATE THE PATIENT/CAREGIVER ON WAYS TO REDUCE FALL RISK FACTORS AND ESTABLISH HOME EXERCISE PROGRAM TO MINIMIZE FALL RISK. MAY TEACH THE PATIENT FLOOR RECOVERY WHEN CLINICALLY APPROPRIATE. OT/ENGINEERING TEST MECHANIC TO EDUCATE ON HYPERTENSION SELF-MANAGEMENT OT/MARIANNE TO [...] OF SKIN INTEGRITY ISSUES FROM [facility] TO [facility] WITHIN 2 WKS. PT STG: PATIENT WILL [...] TO SAFELY NEGOTIATE STAIRS FROM [facility] TO [facility] WITH 2 STEPS W/O HANDRAIL VIA FRONT [...] End Date/Time Encounter Type Admission Type Attending [facility] Care Department Encounter ID Discharge Date Discharge Status Discharge Condition Discharge Reason Percent Goals Met 2025-02-07 00:00:00 2025-04-07 00:00:00 Outpatient NEW ADMISSION [facility] [id number]
--- OUTSIDE RECORDS SUMMARY | 2025-04-06 18:00 | XMS_ITS | Clinical Summary ---
Author Organization Unknown Care Team Providers Care Sales Architect Name Role Phone DIGNA ARIEL, ESTRELLA Unavailable Unava dinora STOKES RN, FRANKIE Unavailable Unavailabl e KARI PT, DIDI Unavailable Unavailable NAT WIRE REPAIRER, GAUDENCIO Unavailable Unavailabl e RADHA OT, ROLANDO Unavailable Unavailable JOANNE STEVEN, HATTIE Unavailable Unavailable Payers Payer Name Policy Type Policy Number Effective Date Expira tion Date MEDICARE.[facility] [id number] Problems Condition Name Condition Details Condition Category Status Onset Date Resolution Date Last Treatment Date Treating Clinician Comments 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 02-07 [...] OF PNEUMONIA (RECURRENT) Active 02-07 00:00: 00 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 OF 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 STEROIDS Active 02-07 [...] 80 mg tablet 02-07 00:00: 00 Yes [id number] CHOLESTEROL 1 tablet DAILY 1 tablet DAILY (route: oral) Med Classific ation: Cardiovas cular Therapy Agents digoxin 125 mcg (0.125 mg) tablet 02-07 00:00: 00 02-21 23:59 :00 No [id number] HEART RHYTHM 1 tablet DAILY 1 tablet DAILY (route: oral) Med Classific ation: Cardiovas cular Therapy Agents escitalopra m 10 mg tablet 02-07 00:00: 00 Yes [id number] MOOD 1 tablet DAILY 1 tablet DAILY (route: oral) Med Classific ation: Central Nervous System Agents ezetimibe 10 mg tablet 02-07 00:00: 00 Yes [id number] CHOLESTEROL 1 tablet DAILY 1 tablet DAILY (route: oral) Med Classific ation: Cardiovas cular Therapy Agents metoprolol succinate ER 25 mg tablet,exte nded release 24 hr 02-07 00:00: 00 02-21 23:59 :00 No [id number] BLOOD PRESSURE 0.5 tablet DAILY 0.5 tablet DAILY (route: oral) Med Classific ation: Cardiovas cular Therapy Agents pantoprazol e 40 mg tablet,joão yed release 02-07 00:00: 00 02-21 23:59 :00 No [id number] STOMACH ACID 1 tablet DAILY 1 tablet DAILY (route: oral) Med Classific ation: Gastroint estinal Therapy Agents prednisone 5 mg tablet 02-07 00:00: 00 Yes [id number] ADRENAL INSUFFICIEN CY 1 tablet DAILY 1 tablet DAILY (route: oral) Med Classific ation: Endocrine spironolact one 25 mg tablet 02-07 00:00: 00 Yes [id number] FLUID RETENTION 0.5 tablet DAILY 0.5 tablet DAILY (route: oral) Med Classific ation: Cardiovas cular Therapy Agents tamsulosin 0.4 mg capsule 02-07 00:00: 00 02-21 23:59 :00 No [id number] URINARY HEALTH 1 capsule DAILY 1 capsule DAILY (route: oral) Med Classific ation: Genitouri nary Therapy acetaminoph en 325 mg tablet 2024-05 00:00: 00 Yes [id number] PAIN 2 tablet 2 TIMES DAILY 2 tablet 2 TIMES DAILY (route: oral) Med Classific ation: Analgesic , Anti-infl ammatory or Antipyret ic aspirin 81 mg tablet 2024-05 00:00: 00 Yes [id number] ANTICOAGULA NT 1 tablet DAILY 1 tablet DAILY (route: oral) Med Classific ation: Hematolog ical Agents ipratropium 0.5 mg-albutero l 3 mg (2.5 mg base)/3 mL nebulizatio n soln 2024-05 00:00: 00 Yes [id number] COPD 3 mL EVERY 6 HOURS 3 mL EVERY 6 HOURS (route: inhalation ) Med Classific ation: Respirato ry Therapy Agents Lanoxin 62.5 mcg (0.0625 mg) tablet 2024-05 00:00: 00 Yes [id number] CHF 1 tablet DAILY 1 tablet DAILY (route: oral) Med Classific ation: Cardiovas cular Therapy Agents Lasix 20 mg tablet 2024-05 00:00: 00 Yes [id number] CHF 1 tablet DAILY 1 tablet DAILY (route: oral) Med Classific ation: Cardiovas cular Therapy Agents Toprol XL 25 mg tablet,exte nded release 2024-05 00:00: 00 Yes [id number] BP 25 mg DAILY 25 mg DAILY [...] SYSTEM MANAGEMENT; RN TO ASSESS AND TEACH, MANAGER ACTUARIAL/CUTTER GRIND TOOL TECHNICIAN TO OBSERVE AND TEACH RELATED TO ALTERED RESPIRATORY STATUS TO MINIMIZE COMPLICATIONS AND REDUCE HOSPITALIZATION. [code = SN 1WK9 PT 1WK1 OT EFFECTIVE 02/10/2025K1 RESPIRATORY SYSTEM MANAGEMENT; RN TO ASSESS AND TEACH, MANAGER ACTUARIAL/CUTTER GRIND TOOL TECHNICIAN TO OBSERVE AND TEACH RELATED TO ALTERED RESPIRATORY STATUS TO MINIMIZE COMPLICATIONS AND REDUCE HOSPITALIZATION.] Future Scheduled Test TRACHEOSTO MY CARE MANAGEMENT; RN/MANAGER ACTUARIAL/CUTTER GRIND TOOL TECHNICIAN TO INSTRUCT PATIENT/CAREGIVER ON CARE AND MANAGEMENT OF TRACHEOSTOMY. RN/ MANAGER ACTUARIAL/CUTTER GRIND TOOL TECHNICIAN TO PROVIDE SKILLED TEACHING ON TRACH COLLAR SUCTIONING PRN WITH 14 FR SUCTION CATHETER PER PATIENT TRACH CARE WITH INNER CANNULA: REMOVE INNER CANNULA, CLEANSE WITH NORMAL SALINE AND OR STERILE WATER AND REINSERT NON-DISPOSABLE CANNULA SIZE OF INNER CANNULA 5 BROOKS [code = TRACHEOSTOMY CARE MANAGEMENT; RN/MANAGER ACTUARIAL/CUTTER GRIND TOOL TECHNICIAN TO INSTRUCT PATIENT/CAREGIVER ON CARE AND MANAGEMENT OF TRACHEOSTOMY. RN/ MANAGER ACTUARIAL/CUTTER GRIND TOOL TECHNICIAN TO PROVIDE SKILLED TEACHING ON TRACH COLLAR SUCTIONING PRN WITH 14 FR SUCTION CATHETER PER PATIENT TRACH CARE WITH INNER CANNULA: REMOVE INNER CANNULA, CLEANSE WITH NORMAL SALINE AND OR STERILE WATER AND REINSERT NON-DISPOSABLE CANNULA SIZE OF INNER CANNULA 5 BROOKS] Future Scheduled Test FALL REDUC TION MANAGEMENT; RN TO ASSESS AND OBSERVE, MANAGER ACTUARIAL/CUTTER GRIND TOOL TECHNICIAN TO OBSERVE FALL RISK FACTORS AND EDUCATE PATIENT/CAREGIVER ON STRATEGIES TO MINIMIZE THE RISK OF FALLING. [code = FALL REDUCTION MANAGEMENT; RN TO ASSESS AND OBSERVE, MANAGER ACTUARIAL/CUTTER GRIND TOOL TECHNICIAN TO OBSERVE FALL RISK FACTORS AND EDUCATE PATIENT/CAREGIVER ON STRATEGIES TO MINIMIZE THE RISK OF FALLING.] Future Scheduled Test ANEMIA MAN AGEMENT; RN TO ASSESS AND TEACH, CUTTER GRIND TOOL TECHNICIAN/MANAGER ACTUARIAL TO OBSERVE AND TEACH AND PROVIDE EDUCATION ON ANEMIA. [code = ANEMIA MANAGEMENT; RN TO ASSESS AND TEACH, CUTTER GRIND TOOL TECHNICIAN/MANAGER ACTUARIAL TO OBSERVE AND TEACH AND PROVIDE EDUCATION ON ANEMIA.] Future Scheduled Test RN TO OBSE RVE, ASSESS, EVALUATE, AND DEVELOP AN INDIVIDUALIZED PLAN OF CARE. AGENCY MAY ACCEPT ORDERS FROM CONSULTING PHYSICIANS RN TO OBSERVE AND ASSESS, MANAGER ACTUARIAL/CUTTER GRIND TOOL TECHNICIAN TO OBSERVE FOR RISK FOR FALLS AND INSTRUCT IN FALL PREVENTION, HOME SAFETY, MEDICATION MANAGEMENT, INFECTION PREVENTION, AND NUTRITION MANAGEMENT. RN/MANAGER ACTUARIAL/CUTTER GRIND TOOL TECHNICIAN NURSE MAY PERFORM O2 SATURATION LEVEL ON ADMISSION AND PRN FOR RN TO ASSESS/MANAGER ACTUARIAL TO OBSERVE PATIENT, WITH NOTIFICATION TO THE PHYSICIAN IF SATURATION IS 90% IN THE ABSENCE OF MORE SPECIFIC PARAMETERS FROM THE PHYSICIAN. AGENCY MAY PERFORM A RESUMPTION OF CARE VISIT FOLLOWING ANY HOSPITAL ADMISSION. RN/MANAGER ACTUARIAL/CUTTER GRIND TOOL TECHNICIAN TO MONITOR CO-MORBID CONDITIONS LISTED ON THE PLAN OF CARE AND ANY NEW CONDITIONS THAT PRESENT THEMSELVES DURING THIS EPISODE TO IDENTIFY CHANGES AND INTERVENE TO MINIMIZE COMPLICATIONS. [code = RN TO OBSERVE, ASSESS, EVALUATE, AND DEVELOP AN INDIVIDUALIZED PLAN OF CARE. AGENCY MAY ACCEPT ORDERS FROM CONSULTING PHYSICIANS RN TO OBSERVE AND ASSESS, MANAGER ACTUARIAL/CUTTER GRIND TOOL TECHNICIAN TO OBSERVE FOR RISK FOR FALLS AND INSTRUCT IN FALL PREVENTION, HOME SAFETY, MEDICATION MANAGEMENT, INFECTION PREVENTION, AND NUTRITION MANAGEMENT. RN/MANAGER ACTUARIAL/CUTTER GRIND TOOL TECHNICIAN NURSE MAY PERFORM O2 SATURATION LEVEL ON ADMISSION AND PRN FOR RN TO ASSESS/MANAGER ACTUARIAL TO OBSERVE PATIENT, WITH NOTIFICATION TO THE PHYSICIAN IF SATURATION IS 90% IN THE ABSENCE OF MORE SPECIFIC PARAMETERS FROM THE PHYSICIAN. AGENCY MAY PERFORM A RESUMPTION OF CARE VISIT FOLLOWING ANY HOSPITAL ADMISSION. RN/MANAGER ACTUARIAL/CUTTER GRIND TOOL TECHNICIAN TO MONITOR CO-MORBID CONDITIONS LISTED ON THE PLAN OF CARE AND ANY NEW CONDITIONS THAT PRESENT THEMSELVES DURING THIS EPISODE TO IDENTIFY CHANGES AND INTERVENE TO MINIMIZE COMPLICATIONS.] Future Scheduled Test PAIN MANAG EMENT; RN TO ASSESS AND TEACH, CUTTER GRIND TOOL TECHNICIAN/MANAGER ACTUARIAL TO OBSERVE AND TEACH AND PROVIDE EDUCATION ON PAIN MANAGEMENT TECHNIQUES. [code = PAIN MANAGEMENT; RN TO ASSESS AND TEACH, CUTTER GRIND TOOL TECHNICIAN/MANAGER ACTUARIAL TO OBSERVE AND TEACH AND PROVIDE EDUCATION ON PAIN MANAGEMENT TECHNIQUES.] Future Scheduled Test RISK FOR H OSPITALIZATION; RN TO ASSESS/TEACH, CUTTER GRIND TOOL TECHNICIAN/MANAGER ACTUARIAL TO OBSERVE/TEACH PATIENT/CAREGIVER ON RISK FOR HOSPITALIZATION/EMERGENCY ROOM VISITS, TEACH SIGNS AND SYMPTOMS THAT PUT PATIENT AT RISK, WHEN TO NOTIFY NURSE/PHYSICIAN OF COMPLICATIONS/DECLINE, AND WHEN TO CALL 911. [code = RISK FOR HOSPITALIZATION; RN TO ASSESS/TEACH, CUTTER GRIND TOOL TECHNICIAN/MANAGER ACTUARIAL TO OBSERVE/TEACH PATIENT/CAREGIVER ON RISK FOR HOSPITALIZATION/EMERGENCY ROOM VISITS, TEACH SIGNS AND SYMPTOMS THAT PUT PATIENT AT RISK, WHEN TO NOTIFY NURSE/PHYSICIAN OF COMPLICATIONS/DECLINE, AND WHEN TO CALL 911.] Future Scheduled Test CARDIOVASC ULAR SYSTEM; RN TO ASSESS/TEACH, MANAGER ACTUARIAL/CUTTER GRIND TOOL TECHNICIAN TO OBSERVE/TEACH RELATED TO ALTERED CARDIOVASCULAR STATUS TO MINIMIZE COMPLICATIONS AND REDUCE HOSPITALIZATION. [code = CARDIOVASCULAR SYSTEM; RN TO ASSESS/TEACH, MANAGER ACTUARIAL/CUTTER GRIND TOOL TECHNICIAN TO OBSERVE/TEACH RELATED TO ALTERED CARDIOVASCULAR STATUS TO MINIMIZE COMPLICATIONS AND REDUCE HOSPITALIZATION.] Future Scheduled Test HYPERTENSI ON MANAGEMENT; RN TO ASSESS AND TEACH, MANAGER ACTUARIAL/CUTTER GRIND TOOL TECHNICIAN TO OBSERVE AND TEACH WARNING SIGNS AND SYMPTOMS TO AVOID HOSPITALIZATION. [code = HYPERTENSION MANAGEMENT; RN TO ASSESS AND TEACH, MANAGER ACTUARIAL/CUTTER GRIND TOOL TECHNICIAN TO OBSERVE AND TEACH WARNING SIGNS AND SYMPTOMS TO AVOID HOSPITALIZATION.] Future Scheduled Test HEART FAIL URE MONITORING RN/CUTTER GRIND TOOL TECHNICIAN/MANAGER ACTUARIAL TO MONITOR PATIENT FOR SIGNS AND SYMPTOMS OF HEART FAILURE EXACERBATION, MONITOR FOR ADHERENCE WITH MEDICATION AND HEART FAILURE MANAGEMENT REGIMEN. [code = HEART FAILURE MONITORING RN/CUTTER GRIND TOOL TECHNICIAN/MANAGER ACTUARIAL TO MONITOR PATIENT FOR SIGNS AND SYMPTOMS OF HEART FAILURE EXACERBATION, MONITOR FOR ADHERENCE WITH MEDICATION AND HEART FAILURE MANAGEMENT REGIMEN.] Future Scheduled Test DIABETES M ONITORING RN/CUTTER GRIND TOOL TECHNICIAN/MANAGER ACTUARIAL TO MONITOR BLOOD SUGAR LOG FOR BLOOD SUGAR READINGS THAT ARE BEING CHECKED BY PATIENT, CAREGIVER NEEDED FOR SIGNS AND SYMPTOMS OF HYPER/HYPOGLYCEMIA. PATIENT THERAPEUTIC BLOOD SUGAR PARAMETERS ARE 70 - 300. REPORT BLOOD SUGARS OUT OF RANGE TO PHYSICIAN. NURSE MAY PERFORM FINGER STICK BLOOD GLUCOSE NEEDED FOR SIGNS AND SYMPTOMS OF HYPO AND HYPERGLYCEMIA. RN/CUTTER GRIND TOOL TECHNICIAN/MANAGER ACTUARIAL TO MONITOR ADHERENCE OF PATIENT/CAREGIVER PERFORMING DIABETIC FOOT CARE AND MAY PERFORM DIABETIC FOOT CARE PRN. RN/CUTTER GRIND TOOL TECHNICIAN/MANAGER ACTUARIAL TO MONITOR FOR ADHERENCE TO DIABETIC SELF-CARE AND MANAGEMENT INCLUDING MEDICATIONS. [code = DIABETES MONITORING RN/CUTTER GRIND TOOL TECHNICIAN/MANAGER ACTUARIAL TO MONITOR BLOOD SUGAR LOG FOR BLOOD SUGAR READINGS THAT ARE BEING CHECKED BY PATIENT, CAREGIVER NEEDED FOR SIGNS AND SYMPTOMS OF HYPER/HYPOGLYCEMIA. PATIENT THERAPEUTIC BLOOD SUGAR PARAMETERS ARE 70 - 300. REPORT BLOOD SUGARS OUT OF RANGE TO PHYSICIAN. NURSE MAY PERFORM FINGER STICK BLOOD GLUCOSE NEEDED FOR SIGNS AND SYMPTOMS OF HYPO AND HYPERGLYCEMIA. RN/CUTTER GRIND TOOL TECHNICIAN/MANAGER ACTUARIAL TO MONITOR ADHERENCE OF PATIENT/CAREGIVER PERFORMING DIABETIC FOOT CARE AND MAY PERFORM DIABETIC FOOT CARE PRN. RN/CUTTER GRIND TOOL TECHNICIAN/MANAGER ACTUARIAL TO MONITOR FOR ADHERENCE TO DIABETIC SELF-CARE AND MANAGEMENT INCLUDING MEDICATIONS.] Future Scheduled Test HYPOTENSIO N MANAGEMENT; RN TO ASSESS AND TEACH/ MANAGER ACTUARIAL /CUTTER GRIND TOOL TECHNICIAN TO OBSERVE AND TEACH WARNING SIGNS AND SYMPTOMS TO AVOID HOSPITALIZATION. [code = HYPOTENSION MANAGEMENT; RN TO ASSESS AND TEACH/ MANAGER ACTUARIAL /CUTTER GRIND TOOL TECHNICIAN TO OBSERVE AND TEACH WARNING SIGNS AND SYMPTOMS TO AVOID HOSPITALIZATION.] Future Scheduled Test ARRHYTHMIA MANAGEMENT; RN TO ASSESS AND TEACH, MANAGER ACTUARIAL/CUTTER GRIND TOOL TECHNICIAN TO OBSERVE AND TEACH WARNING SIGNS AND SYMPTOMS TO AVOID HOSPITALIZATION. [code = ARRHYTHMIA MANAGEMENT; RN TO ASSESS AND TEACH, MANAGER ACTUARIAL/CUTTER GRIND TOOL TECHNICIAN TO OBSERVE AND TEACH WARNING SIGNS AND SYMPTOMS TO AVOID HOSPITALIZATION.] Future Scheduled Test MEDICATION MANAGEMENT; RN/MANAGER ACTUARIAL/CUTTER GRIND TOOL TECHNICIAN TO REVIEW MEDICATIONS FOR INTERACTIONS, EFFECTIVENESS OF DRUG THERAPY, AND SIGNS/SYMPTOMS OF ADVERSE REACTIONS. MAY INSTRUCT AND REINFORCE MEDICATION TEACHING RELATED TO THE USE OF MEDICATIONS, DOSAGE, FREQUENCY, PURPOSE, SIDE EFFECTS, AND TO REPORT COMPLICATIONS. [code = MEDICATION MANAGEMENT; RN/MANAGER ACTUARIAL/CUTTER GRIND TOOL TECHNICIAN TO REVIEW MEDICATIONS FOR INTERACTIONS, EFFECTIVENESS OF [...] EVAL UATE, OBSERVE / ASSESS, AND MONITOR, WIRE REPAIRER TO OBSERVE AND MONITOR, PROVIDE SKILLED THERAPEUTIC INTERVENTION, ACTIVITY, EDUCATION, AND TRAINING TO ADDRESS GEN. WEAKNESS, POOR OVERALL ACTIVITY TOLERANCE, AND FUNCTIONAL LIMITATIONS IMPACTING SAFETY AND INDEPENDENCE. BED MOBILITY (PT/WIRE REPAIRER) PT/WIRE REPAIRER TO PROVIDE GAIT TRAINING FOR IMPROVED MOBILITY AND /OR TO NORMALIZE GAIT PATTERN THERAPEUTIC EXERCISES AND ESTABLISHING A HOME EXERCISE PROGRAM (PT/WIRE REPAIRER) PT/WIRE REPAIRER TO PROVIDE STAIR TRAINING PT / WIRE REPAIRER TO MONITOR AND EDUCATE ON OXYGEN SATURATION DURING ADLS/IADLS, NOTIFY PHYSICIAN AND/OR THE RN CLINICAL CAR SEAT UPHOLSTERER FOR PHYSICIAN NOTIFICATION AND IF O2 SATS BELOW PHYSICIAN ORDERED PARAMETERS AFTER 10 MIN OF REST PT / WIRE REPAIRER TO OBSERVE FOR EARLY SIGNS AND SYMPTOMS OF DEPRESSION OR DEPRESSION GETTING WORSE AND TO EDUCATE ON HOW TO FIND HELP. PT / WIRE REPAIRER MAY EDUCATE ON PAIN MANAGEMENT CLINICALLY INDICATED, INCLUDING NON-PHARMACOLOGICAL PAIN REDUCTION TECHNIQUES PT / WIRE REPAIRER TO MONITOR FOR HYPO/HYPERGLYCEMIA AND CONDUCT ROUTINE FOOT INSPECTIONS. RECORD PATIENT REPORTED BLOOD SUGAR LEVELS AND NOTIFY PHYSICIAN AND/OR THE RN CLINICAL CAR SEAT UPHOLSTERER FOR PHYSICIAN NOTIFICATION IF BLOOD SUGAR LEVELS ARE OUTSIDE ORDERED PARAMETERS. TEACH PATIENT/CAREGIVER ON DAILY FOOT INSPECTIONS PT / WIRE REPAIRER TO INSTRUCT PATIENT/CAREGIVER ON RISK FOR HOSPITALIZATION/EMERGENCY ROOM VISITS, TEACH SIGNS AND SYMPTOMS THAT PUT PATIENT AT RISK, WHEN TO NOTIFY NURSE/PHYSICIAN OF COMPLICATIONS/DECLINE, AND WHEN TO CALL 911. PT/WIRE REPAIRER TO EDUCATE ON ARTHRITIS SELF-MANAGEMENT PT / WIRE REPAIRER TO EDUCATE ON HEART FAILURE SELF-MANAGEMENT PT / WIRE REPAIRER TO EDUCATE ON HYPERTENSION SELF-MANAGEMENT PT TO ASSESS / WIRE REPAIRER TO MONITOR CARDIO/RESPIRATORY SYSTEM; AND NOTIFY THE PHYSICIAN AND/OR THE RN CLINICAL CAR SEAT UPHOLSTERER FOR PHYSICIAN NOTIFICATION FOR EARLY SIGNS AND SYMPTOMS OF EXACERBATION OR DETERIORATION. PT / WIRE REPAIRER TO EDUCATE ON ATRIAL FIBRILLATION SELF-MANAGEMENT. PT / WIRE REPAIRER TO EDUCATE ON PNEUMONIA / ASPIRATION PNEUMONIA SELF-MANAGEMENT. PT/WIRE REPAIRER TO IDENTIFY FALL RISK FACTORS; EDUCATE THE PATIENT/CAREGIVER ON WAYS TO REDUCE FALL RISK FACTORS AND ESTABLISH HOME EXERCISE PROGRAM TO MINIMIZE FALL RISK. MAY TEACH THE PATIENT FLOOR RECOVERY WHEN CLINICALLY APPROPRIATE [code = PT TO EVALUATE, OBSERVE / ASSESS, AND MONITOR, WIRE REPAIRER TO OBSERVE AND MONITOR, PROVIDE SKILLED THERAPEUTIC INTERVENTION, ACTIVITY, EDUCATION, AND TRAINING TO ADDRESS GEN. WEAKNESS, POOR OVERALL ACTIVITY TOLERANCE, AND FUNCTIONAL LIMITATIONS IMPACTING SAFETY AND INDEPENDENCE. BED MOBILITY (PT/WIRE REPAIRER) PT/WIRE REPAIRER TO PROVIDE GAIT TRAINING FOR IMPROVED MOBILITY AND /OR TO NORMALIZE GAIT PATTERN THERAPEUTIC EXERCISES AND ESTABLISHING A HOME EXERCISE PROGRAM (PT/WIRE REPAIRER) PT/WIRE REPAIRER TO PROVIDE STAIR TRAINING PT / WIRE REPAIRER TO MONITOR AND EDUCATE ON OXYGEN SATURATION DURING ADLS/IADLS, NOTIFY PHYSICIAN AND/OR THE RN CLINICAL CAR SEAT UPHOLSTERER FOR PHYSICIAN NOTIFICATION AND IF O2 SATS BELOW PHYSICIAN ORDERED PARAMETERS AFTER 10 MIN OF REST PT / WIRE REPAIRER TO OBSERVE FOR EARLY SIGNS AND SYMPTOMS OF DEPRESSION OR DEPRESSION GETTING WORSE AND TO EDUCATE ON HOW TO FIND HELP. PT / WIRE REPAIRER MAY EDUCATE ON PAIN MANAGEMENT CLINICALLY INDICATED, INCLUDING NON-PHARMACOLOGICAL PAIN REDUCTION TECHNIQUES PT / WIRE REPAIRER TO MONITOR FOR HYPO/HYPERGLYCEMIA AND CONDUCT ROUTINE FOOT INSPECTIONS. RECORD PATIENT REPORTED BLOOD SUGAR LEVELS AND NOTIFY PHYSICIAN AND/OR THE RN CLINICAL CAR SEAT UPHOLSTERER FOR PHYSICIAN NOTIFICATION IF BLOOD SUGAR LEVELS ARE OUTSIDE ORDERED PARAMETERS. TEACH PATIENT/CAREGIVER ON DAILY FOOT INSPECTIONS PT / WIRE REPAIRER TO INSTRUCT PATIENT/CAREGIVER ON RISK FOR HOSPITALIZATION/EMERGENCY ROOM VISITS, TEACH SIGNS AND SYMPTOMS THAT PUT PATIENT AT RISK, WHEN TO NOTIFY NURSE/PHYSICIAN OF COMPLICATIONS/DECLINE, AND WHEN TO CALL 911. PT/WIRE REPAIRER TO EDUCATE ON ARTHRITIS SELF-MANAGEMENT PT / WIRE REPAIRER TO EDUCATE ON HEART FAILURE SELF-MANAGEMENT PT / WIRE REPAIRER TO EDUCATE ON HYPERTENSION SELF-MANAGEMENT PT TO ASSESS / WIRE REPAIRER TO MONITOR CARDIO/RESPIRATORY SYSTEM; AND NOTIFY THE PHYSICIAN AND/OR THE RN CLINICAL CAR SEAT UPHOLSTERER FOR PHYSICIAN NOTIFICATION FOR EARLY SIGNS AND SYMPTOMS OF EXACERBATION OR DETERIORATION. PT / WIRE REPAIRER TO EDUCATE ON ATRIAL FIBRILLATION SELF-MANAGEMENT. PT / WIRE REPAIRER TO EDUCATE ON PNEUMONIA / ASPIRATION PNEUMONIA SELF-MANAGEMENT. PT/WIRE REPAIRER TO IDENTIFY FALL RISK FACTORS; EDUCATE THE PATIENT/CAREGIVER ON WAYS TO REDUCE FALL RISK FACTORS AND ESTABLISH HOME EXERCISE PROGRAM TO MINIMIZE FALL RISK. MAY TEACH THE PATIENT FLOOR RECOVERY WHEN CLINICALLY APPROPRIATE] Future Scheduled Test AGENCY MAY PERFORM A RESUMPTION OF CARE VISIT FOLLOWING ANY HOSPITAL ADMISSION. OT TO EVALUATE, OBSERVE / ASSESS, AND MONITOR, CIVIL LABORATORY TECHNICIAN TO OBSERVE AND MONITOR, PROVIDE SKILLED THERAPEUTIC INTERVENTION, ACTIVITY, EDUCATION, AND TRAINING TO ADDRESS SAFETY AND INDEPENDENCE OF ADLS AND FUNCTIONAL TRANSFERS IN HOME ENVIRONMENT. ACTIVITIES OF DAILY LIVING (OT/MARIANNE) THERAPEUTIC EXERCISE (OT/CIVIL LABORATORY TECHNICIAN) ENERGY CONSERVATION/ACTIVITY DEMAND (OT/CIVIL LABORATORY TECHNICIAN) OT/CIVIL LABORATORY TECHNICIAN TO MONITOR AND EDUCATE ON OXYGEN SATURATION DURING ADLS/IADLS, NOTIFY PHYSICIAN AND/OR THE RN CLINICAL CAR SEAT UPHOLSTERER FOR PHYSICIAN NOTIFICATION AND IF O2 SATS BELOW 90% AFTER 10 MIN OF REST. OT / CIVIL LABORATORY TECHNICIAN TO IDENTIFY FALL RISK FACTORS; EDUCATE THE PATIENT/CAREGIVER ON WAYS TO REDUCE FALL RISK FACTORS AND ESTABLISH HOME EXERCISE PROGRAM TO MINIMIZE FALL RISK. MAY TEACH THE PATIENT FLOOR RECOVERY WHEN CLINICALLY APPROPRIATE. OT/CIVIL LABORATORY TECHNICIAN TO EDUCATE ON HYPERTENSION SELF-MANAGEMENT OT/MARIANNE TO EDUCATE ON ATRIAL FIBRILLATION SELF-MANAGEMENT. [code = AGENCY MAY PERFORM A RESUMPTION OF CARE VISIT FOLLOWING ANY HOSPITAL ADMISSION. OT TO EVALUATE, OBSERVE / ASSESS, AND MONITOR, CIVIL LABORATORY TECHNICIAN TO OBSERVE AND MONITOR, PROVIDE SKILLED THERAPEUTIC INTERVENTION, ACTIVITY, EDUCATION, AND TRAINING TO ADDRESS SAFETY AND INDEPENDENCE OF ADLS AND FUNCTIONAL TRANSFERS IN HOME ENVIRONMENT. ACTIVITIES OF DAILY LIVING (OT/MARIANNE) THERAPEUTIC EXERCISE (OT/CIVIL LABORATORY TECHNICIAN) ENERGY CONSERVATION/ACTIVITY DEMAND (OT/MARIANNE) OT/CIVIL LABORATORY TECHNICIAN TO MONITOR AND EDUCATE ON OXYGEN SATURATION DURING ADLS/IADLS, NOTIFY PHYSICIAN AND/OR THE RN CLINICAL CAR SEAT UPHOLSTERER FOR PHYSICIAN NOTIFICATION AND IF O2 SATS BELOW 90% AFTER 10 MIN OF REST. OT / MARIANNE TO IDENTIFY FALL RISK FACTORS; EDUCATE THE PATIENT/CAREGIVER ON WAYS TO REDUCE FALL RISK FACTORS AND ESTABLISH HOME EXERCISE PROGRAM TO MINIMIZE FALL RISK. MAY TEACH THE PATIENT FLOOR RECOVERY WHEN CLINICALLY APPROPRIATE. OT/CIVIL LABORATORY TECHNICIAN TO EDUCATE ON HYPERTENSION SELF-MANAGEMENT OT/MARIANNE TO [...] OF SKIN INTEGRITY ISSUES FROM SBA TO UT WITHIN 2 WKS. PT STG: PATIENT WILL [...] TO SAFELY NEGOTIATE STAIRS FROM SBA TO UT WITH 2 STEPS W/O HANDRAIL VIA FRONT [...] End Date/Time Encounter Type Admission Type Attending [facility] Care Department Encounter ID Discharge Date Discharge Status Discharge Condition Discharge Reason Percent Goals Met 2025-02-07 00:00:00 2025-04-07 00:00:00 Outpatient NEW ADMISSION [facility] [id number]
--- OUTSIDE RECORDS SUMMARY | 2025-04-06 18:00 | XMS_ITS | Clinical Summary ---
Author Organization Unknown Care Team Providers Care Fast Food Attendant Name Role Phone DIGNA ARIEL, ESTRELLA Unavailable Unava dinora STOKES RN, FRANKIE Unavailable Unavailabl e KARI PT, DIDI Unavailable Unavailable NAT ANALYST BUSINESS ANALYSIS, GAUDENCIO Unavailable Unavailabl e RADHA OT, ROLANDO Unavailable Unavailable JOANNE STEVEN, HATTIE Unavailable Unavailable Payers Payer Name Policy Type Policy Number Effective Date Expira tion Date MEDICARE.[facility] [id number] Problems Condition Name Condition Details Condition Category Status Onset Date Resolution Date Last Treatment Date Treating Clinician Comments 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: 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 02-07 [...] OF PNEUMONIA (RECURRENT) Active 02-07 00:00: 00 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 Active 02-07 [...] 80 mg tablet 02-07 00:00: 00 Yes [id number] CHOLESTEROL 1 tablet DAILY 1 tablet DAILY (route: oral) Med Classific ation: Cardiovas cular Therapy Agents digoxin 125 mcg (0.125 mg) tablet 02-07 00:00: 00 02-21 23:59 :00 No [id number] HEART RHYTHM 1 tablet DAILY 1 tablet DAILY (route: oral) Med Classific ation: Cardiovas cular Therapy Agents escitalopra m 10 mg tablet 02-07 00:00: 00 Yes [id number] MOOD 1 tablet DAILY 1 tablet DAILY (route: oral) Med Classific ation: Central Nervous System Agents ezetimibe 10 mg tablet 02-07 00:00: 00 Yes [id number] CHOLESTEROL 1 tablet DAILY 1 tablet DAILY (route: oral) Med Classific ation: Cardiovas cular Therapy Agents metoprolol succinate ER 25 mg tablet,exte nded release 24 hr 02-07 00:00: 00 02-21 23:59 :00 No [id number] BLOOD PRESSURE 0.5 tablet DAILY 0.5 tablet DAILY (route: oral) Med Classific ation: Cardiovas cular Therapy Agents pantoprazol e 40 mg tablet,joão yed release 02-07 00:00: 00 02-21 23:59 :00 No [id number] STOMACH ACID 1 tablet DAILY 1 tablet DAILY (route: oral) Med Classific ation: Gastroint estinal Therapy Agents prednisone 5 mg tablet 02-07 00:00: 00 Yes [id number] ADRENAL INSUFFICIEN CY 1 tablet DAILY 1 tablet DAILY (route: oral) Med Classific ation: Endocrine spironolact one 25 mg tablet 02-07 00:00: 00 Yes [id number] FLUID RETENTION 0.5 tablet DAILY 0.5 tablet DAILY (route: oral) Med Classific ation: Cardiovas cular Therapy Agents tamsulosin 0.4 mg capsule 02-07 00:00: 00 02-21 23:59 :00 No [id number] URINARY HEALTH 1 capsule DAILY 1 capsule DAILY (route: oral) Med Classific ation: Genitouri nary Therapy acetaminoph en 325 mg tablet 2024-05 00:00: 00 Yes [id number] PAIN 2 tablet 2 TIMES DAILY 2 tablet 2 TIMES DAILY (route: oral) Med Classific ation: Analgesic , Anti-infl ammatory or Antipyret ic aspirin 81 mg tablet 2024-05 00:00: 00 Yes [id number] ANTICOAGULA NT 1 tablet DAILY 1 tablet DAILY (route: oral) Med Classific ation: Hematolog ical Agents ipratropium 0.5 mg-albutero l 3 mg (2.5 mg base)/3 mL nebulizatio n soln 2024-05 00:00: 00 Yes [id number] COPD 3 mL EVERY 6 HOURS 3 mL EVERY 6 HOURS (route: inhalation ) Med Classific ation: Respirato ry Therapy Agents Lanoxin 62.5 mcg (0.0625 mg) tablet 2024-05 00:00: 00 Yes [id number] CHF 1 tablet DAILY 1 tablet DAILY (route: oral) Med Classific ation: Cardiovas cular Therapy Agents Lasix 20 mg tablet 2024-05 00:00: 00 Yes [id number] CHF 1 tablet DAILY 1 tablet DAILY (route: oral) Med Classific ation: Cardiovas cular Therapy Agents Toprol XL 25 mg tablet,exte nded release 2024-05 00:00: 00 Yes [id number] BP 25 mg DAILY 25 mg DAILY [...] SYSTEM MANAGEMENT; RN TO ASSESS AND TEACH, MAINTENANCE ADVISOR/WELT BUTTER HAND TO OBSERVE AND TEACH RELATED TO ALTERED RESPIRATORY STATUS TO MINIMIZE COMPLICATIONS AND REDUCE HOSPITALIZATION. [code = SN 1WK9 PT 1WK1 OT EFFECTIVE 02/10/2025K1 RESPIRATORY SYSTEM MANAGEMENT; RN TO ASSESS AND TEACH, MAINTENANCE ADVISOR/WELT BUTTER HAND TO OBSERVE AND TEACH RELATED TO ALTERED RESPIRATORY STATUS TO MINIMIZE COMPLICATIONS AND REDUCE HOSPITALIZATION.] Future Scheduled Test TRACHEOSTO MY CARE MANAGEMENT; RN/MAINTENANCE ADVISOR/WELT BUTTER HAND TO INSTRUCT PATIENT/CAREGIVER ON CARE AND MANAGEMENT OF TRACHEOSTOMY. RN/ MAINTENANCE ADVISOR/WELT BUTTER HAND TO PROVIDE SKILLED TEACHING ON TRACH COLLAR SUCTIONING PRN WITH 14 FR SUCTION CATHETER PER PATIENT TRACH CARE WITH INNER CANNULA: REMOVE INNER CANNULA, CLEANSE WITH NORMAL SALINE AND OR STERILE WATER AND REINSERT NON-DISPOSABLE CANNULA SIZE OF INNER CANNULA 5 BROOKS [code = TRACHEOSTOMY CARE MANAGEMENT; RN/MAINTENANCE ADVISOR/WELT BUTTER HAND TO INSTRUCT PATIENT/CAREGIVER ON CARE AND MANAGEMENT OF TRACHEOSTOMY. RN/ MAINTENANCE ADVISOR/WELT BUTTER HAND TO PROVIDE SKILLED TEACHING ON TRACH COLLAR SUCTIONING PRN WITH 14 FR SUCTION CATHETER PER PATIENT TRACH CARE WITH INNER CANNULA: REMOVE INNER CANNULA, CLEANSE WITH NORMAL SALINE AND OR STERILE WATER AND REINSERT NON-DISPOSABLE CANNULA SIZE OF INNER CANNULA 5 BROOKS] Future Scheduled Test FALL REDUC TION MANAGEMENT; RN TO ASSESS AND OBSERVE, MAINTENANCE ADVISOR/WELT BUTTER HAND TO OBSERVE FALL RISK FACTORS AND EDUCATE PATIENT/CAREGIVER ON STRATEGIES TO MINIMIZE THE RISK OF FALLING. [code = FALL REDUCTION MANAGEMENT; RN TO ASSESS AND OBSERVE, MAINTENANCE ADVISOR/WELT BUTTER HAND TO OBSERVE FALL RISK FACTORS AND EDUCATE PATIENT/CAREGIVER ON STRATEGIES TO MINIMIZE THE RISK OF FALLING.] Future Scheduled Test ANEMIA MAN AGEMENT; RN TO ASSESS AND TEACH, WELT BUTTER HAND/MAINTENANCE ADVISOR TO OBSERVE AND TEACH AND PROVIDE EDUCATION ON ANEMIA. [code = ANEMIA MANAGEMENT; RN TO ASSESS AND TEACH, WELT BUTTER HAND/MAINTENANCE ADVISOR TO OBSERVE AND TEACH AND PROVIDE EDUCATION ON ANEMIA.] Future Scheduled Test RN TO OBSE RVE, ASSESS, EVALUATE, AND DEVELOP AN INDIVIDUALIZED PLAN OF CARE. AGENCY MAY ACCEPT ORDERS FROM CONSULTING PHYSICIANS RN TO OBSERVE AND ASSESS, MAINTENANCE ADVISOR/WELT BUTTER HAND TO OBSERVE FOR RISK FOR FALLS AND INSTRUCT IN FALL PREVENTION, HOME SAFETY, MEDICATION MANAGEMENT, INFECTION PREVENTION, AND NUTRITION MANAGEMENT. RN/MAINTENANCE ADVISOR/WELT BUTTER HAND NURSE MAY PERFORM O2 SATURATION LEVEL ON ADMISSION AND PRN FOR RN TO ASSESS/MAINTENANCE ADVISOR TO OBSERVE PATIENT, WITH NOTIFICATION TO THE PHYSICIAN IF SATURATION IS 90% IN THE ABSENCE OF MORE SPECIFIC PARAMETERS FROM THE PHYSICIAN. AGENCY MAY PERFORM A RESUMPTION OF CARE VISIT FOLLOWING ANY HOSPITAL ADMISSION. RN/MAINTENANCE ADVISOR/WELT BUTTER HAND TO MONITOR CO-MORBID CONDITIONS LISTED ON THE PLAN OF CARE AND ANY NEW CONDITIONS THAT PRESENT THEMSELVES DURING THIS EPISODE TO IDENTIFY CHANGES AND INTERVENE TO MINIMIZE COMPLICATIONS. [code = RN TO OBSERVE, ASSESS, EVALUATE, AND DEVELOP AN INDIVIDUALIZED PLAN OF CARE. AGENCY MAY ACCEPT ORDERS FROM CONSULTING PHYSICIANS RN TO OBSERVE AND ASSESS, MAINTENANCE ADVISOR/WELT BUTTER HAND TO OBSERVE FOR RISK FOR FALLS AND INSTRUCT IN FALL PREVENTION, HOME SAFETY, MEDICATION MANAGEMENT, INFECTION PREVENTION, AND NUTRITION MANAGEMENT. RN/MAINTENANCE ADVISOR/WELT BUTTER HAND NURSE MAY PERFORM O2 SATURATION LEVEL ON ADMISSION AND PRN FOR RN TO ASSESS/MAINTENANCE ADVISOR TO OBSERVE PATIENT, WITH NOTIFICATION TO THE PHYSICIAN IF SATURATION IS 90% IN THE ABSENCE OF MORE SPECIFIC PARAMETERS FROM THE PHYSICIAN. AGENCY MAY PERFORM A RESUMPTION OF CARE VISIT FOLLOWING ANY HOSPITAL ADMISSION. RN/MAINTENANCE ADVISOR/WELT BUTTER HAND TO MONITOR CO-MORBID CONDITIONS LISTED ON THE PLAN OF CARE AND ANY NEW CONDITIONS THAT PRESENT THEMSELVES DURING THIS EPISODE TO IDENTIFY CHANGES AND INTERVENE TO MINIMIZE COMPLICATIONS.] Future Scheduled Test PAIN MANAG EMENT; RN TO ASSESS AND TEACH, WELT BUTTER HAND/MAINTENANCE ADVISOR TO OBSERVE AND TEACH AND PROVIDE EDUCATION ON PAIN MANAGEMENT TECHNIQUES. [code = PAIN MANAGEMENT; RN TO ASSESS AND TEACH, WELT BUTTER HAND/MAINTENANCE ADVISOR TO OBSERVE AND TEACH AND PROVIDE EDUCATION ON PAIN MANAGEMENT TECHNIQUES.] Future Scheduled Test RISK FOR H OSPITALIZATION; RN TO ASSESS/TEACH, WELT BUTTER HAND/MAINTENANCE ADVISOR TO OBSERVE/TEACH PATIENT/CAREGIVER ON RISK FOR HOSPITALIZATION/EMERGENCY ROOM VISITS, TEACH SIGNS AND SYMPTOMS THAT PUT PATIENT AT RISK, WHEN TO NOTIFY NURSE/PHYSICIAN OF COMPLICATIONS/DECLINE, AND WHEN TO CALL 911. [code = RISK FOR HOSPITALIZATION; RN TO ASSESS/TEACH, WELT BUTTER HAND/MAINTENANCE ADVISOR TO OBSERVE/TEACH PATIENT/CAREGIVER ON RISK FOR HOSPITALIZATION/EMERGENCY ROOM VISITS, TEACH SIGNS AND SYMPTOMS THAT PUT PATIENT AT RISK, WHEN TO NOTIFY NURSE/PHYSICIAN OF COMPLICATIONS/DECLINE, AND WHEN TO CALL 911.] Future Scheduled Test CARDIOVASC ULAR SYSTEM; RN TO ASSESS/TEACH, MAINTENANCE ADVISOR/WELT BUTTER HAND TO OBSERVE/TEACH RELATED TO ALTERED CARDIOVASCULAR STATUS TO MINIMIZE COMPLICATIONS AND REDUCE HOSPITALIZATION. [code = CARDIOVASCULAR SYSTEM; RN TO ASSESS/TEACH, MAINTENANCE ADVISOR/WELT BUTTER HAND TO OBSERVE/TEACH RELATED TO ALTERED CARDIOVASCULAR STATUS TO MINIMIZE COMPLICATIONS AND REDUCE HOSPITALIZATION.] Future Scheduled Test HYPERTENSI ON MANAGEMENT; RN TO ASSESS AND TEACH, MAINTENANCE ADVISOR/WELT BUTTER HAND TO OBSERVE AND TEACH WARNING SIGNS AND SYMPTOMS TO AVOID HOSPITALIZATION. [code = HYPERTENSION MANAGEMENT; RN TO ASSESS AND TEACH, MAINTENANCE ADVISOR/WELT BUTTER HAND TO OBSERVE AND TEACH WARNING SIGNS AND SYMPTOMS TO AVOID HOSPITALIZATION.] Future Scheduled Test HEART FAIL URE MONITORING RN/WELT BUTTER HAND/MAINTENANCE ADVISOR TO MONITOR PATIENT FOR SIGNS AND SYMPTOMS OF HEART FAILURE EXACERBATION, MONITOR FOR ADHERENCE WITH MEDICATION AND HEART FAILURE MANAGEMENT REGIMEN. [code = HEART FAILURE MONITORING RN/WELT BUTTER HAND/MAINTENANCE ADVISOR TO MONITOR PATIENT FOR SIGNS AND SYMPTOMS OF HEART FAILURE EXACERBATION, MONITOR FOR ADHERENCE WITH MEDICATION AND HEART FAILURE MANAGEMENT REGIMEN.] Future Scheduled Test DIABETES M ONITORING RN/WELT BUTTER HAND/MAINTENANCE ADVISOR TO MONITOR BLOOD SUGAR LOG FOR BLOOD SUGAR READINGS THAT ARE BEING CHECKED BY PATIENT, CAREGIVER NEEDED FOR SIGNS AND SYMPTOMS OF HYPER/HYPOGLYCEMIA. PATIENT THERAPEUTIC BLOOD SUGAR PARAMETERS ARE 70 - 300. REPORT BLOOD SUGARS OUT OF RANGE TO PHYSICIAN. NURSE MAY PERFORM FINGER STICK BLOOD GLUCOSE NEEDED FOR SIGNS AND SYMPTOMS OF HYPO AND HYPERGLYCEMIA. RN/WELT BUTTER HAND/MAINTENANCE ADVISOR TO MONITOR ADHERENCE OF PATIENT/CAREGIVER PERFORMING DIABETIC FOOT CARE AND MAY PERFORM DIABETIC FOOT CARE PRN. RN/WELT BUTTER HAND/MAINTENANCE ADVISOR TO MONITOR FOR ADHERENCE TO DIABETIC SELF-CARE AND MANAGEMENT INCLUDING MEDICATIONS. [code = DIABETES MONITORING RN/WELT BUTTER HAND/MAINTENANCE ADVISOR TO MONITOR BLOOD SUGAR LOG FOR BLOOD SUGAR READINGS THAT ARE BEING CHECKED BY PATIENT, CAREGIVER NEEDED FOR SIGNS AND SYMPTOMS OF HYPER/HYPOGLYCEMIA. PATIENT THERAPEUTIC BLOOD SUGAR PARAMETERS ARE 70 - 300. REPORT BLOOD SUGARS OUT OF RANGE TO PHYSICIAN. NURSE MAY PERFORM FINGER STICK BLOOD GLUCOSE NEEDED FOR SIGNS AND SYMPTOMS OF HYPO AND HYPERGLYCEMIA. RN/WELT BUTTER HAND/MAINTENANCE ADVISOR TO MONITOR ADHERENCE OF PATIENT/CAREGIVER PERFORMING DIABETIC FOOT CARE AND MAY PERFORM DIABETIC FOOT CARE PRN. RN/WELT BUTTER HAND/MAINTENANCE ADVISOR TO MONITOR FOR ADHERENCE TO DIABETIC SELF-CARE AND MANAGEMENT INCLUDING MEDICATIONS.] Future Scheduled Test HYPOTENSIO N MANAGEMENT; RN TO ASSESS AND TEACH/ MAINTENANCE ADVISOR /WELT BUTTER HAND TO OBSERVE AND TEACH WARNING SIGNS AND SYMPTOMS TO AVOID HOSPITALIZATION. [code = HYPOTENSION MANAGEMENT; RN TO ASSESS AND TEACH/ MAINTENANCE ADVISOR /WELT BUTTER HAND TO OBSERVE AND TEACH WARNING SIGNS AND SYMPTOMS TO AVOID HOSPITALIZATION.] Future Scheduled Test ARRHYTHMIA MANAGEMENT; RN TO ASSESS AND TEACH, MAINTENANCE ADVISOR/WELT BUTTER HAND TO OBSERVE AND TEACH WARNING SIGNS AND SYMPTOMS TO AVOID HOSPITALIZATION. [code = ARRHYTHMIA MANAGEMENT; RN TO ASSESS AND TEACH, MAINTENANCE ADVISOR/WELT BUTTER HAND TO OBSERVE AND TEACH WARNING SIGNS AND SYMPTOMS TO AVOID HOSPITALIZATION.] Future Scheduled Test MEDICATION MANAGEMENT; RN/MAINTENANCE ADVISOR/WELT BUTTER HAND TO REVIEW MEDICATIONS FOR INTERACTIONS, EFFECTIVENESS OF DRUG THERAPY, AND SIGNS/SYMPTOMS OF ADVERSE REACTIONS. MAY INSTRUCT AND REINFORCE MEDICATION TEACHING RELATED TO THE USE OF MEDICATIONS, DOSAGE, FREQUENCY, PURPOSE, SIDE EFFECTS, AND TO REPORT COMPLICATIONS. [code = MEDICATION MANAGEMENT; RN/MAINTENANCE ADVISOR/WELT BUTTER HAND TO REVIEW MEDICATIONS FOR INTERACTIONS, EFFECTIVENESS OF [...] EVAL UATE, OBSERVE / ASSESS, AND MONITOR, ANALYST BUSINESS ANALYSIS TO OBSERVE AND MONITOR, PROVIDE SKILLED THERAPEUTIC INTERVENTION, ACTIVITY, EDUCATION, AND TRAINING TO ADDRESS GEN. WEAKNESS, POOR OVERALL ACTIVITY TOLERANCE, AND FUNCTIONAL LIMITATIONS IMPACTING SAFETY AND INDEPENDENCE. BED MOBILITY (PT/ANALYST BUSINESS ANALYSIS) PT/ANALYST BUSINESS ANALYSIS TO PROVIDE GAIT TRAINING FOR IMPROVED MOBILITY AND /OR TO NORMALIZE GAIT PATTERN THERAPEUTIC EXERCISES AND ESTABLISHING A HOME EXERCISE PROGRAM (PT/ANALYST BUSINESS ANALYSIS) PT/ANALYST BUSINESS ANALYSIS TO PROVIDE STAIR TRAINING PT / ANALYST BUSINESS ANALYSIS TO MONITOR AND EDUCATE ON OXYGEN SATURATION DURING ADLS/IADLS, NOTIFY PHYSICIAN AND/OR THE RN CLINICAL PROMOTION SPECIALIST FOR PHYSICIAN NOTIFICATION AND IF O2 SATS BELOW PHYSICIAN ORDERED PARAMETERS AFTER 10 MIN OF REST PT / ANALYST BUSINESS ANALYSIS TO OBSERVE FOR EARLY SIGNS AND SYMPTOMS OF DEPRESSION OR DEPRESSION GETTING WORSE AND TO EDUCATE ON HOW TO FIND HELP. PT / ANALYST BUSINESS ANALYSIS MAY EDUCATE ON PAIN MANAGEMENT CLINICALLY INDICATED, INCLUDING NON-PHARMACOLOGICAL PAIN REDUCTION TECHNIQUES PT / ANALYST BUSINESS ANALYSIS TO MONITOR FOR HYPO/HYPERGLYCEMIA AND CONDUCT ROUTINE FOOT INSPECTIONS. RECORD PATIENT REPORTED BLOOD SUGAR LEVELS AND NOTIFY PHYSICIAN AND/OR THE RN CLINICAL PROMOTION SPECIALIST FOR PHYSICIAN NOTIFICATION IF BLOOD SUGAR LEVELS ARE OUTSIDE ORDERED PARAMETERS. TEACH PATIENT/CAREGIVER ON DAILY FOOT INSPECTIONS PT / ANALYST BUSINESS ANALYSIS TO INSTRUCT PATIENT/CAREGIVER ON RISK FOR HOSPITALIZATION/EMERGENCY ROOM VISITS, TEACH SIGNS AND SYMPTOMS THAT PUT PATIENT AT RISK, WHEN TO NOTIFY NURSE/PHYSICIAN OF COMPLICATIONS/DECLINE, AND WHEN TO CALL 911. PT/ANALYST BUSINESS ANALYSIS TO EDUCATE ON ARTHRITIS SELF-MANAGEMENT PT / ANALYST BUSINESS ANALYSIS TO EDUCATE ON HEART FAILURE SELF-MANAGEMENT PT / ANALYST BUSINESS ANALYSIS TO EDUCATE ON HYPERTENSION SELF-MANAGEMENT PT TO ASSESS / ANALYST BUSINESS ANALYSIS TO MONITOR CARDIO/RESPIRATORY SYSTEM; AND NOTIFY THE PHYSICIAN AND/OR THE RN CLINICAL PROMOTION SPECIALIST FOR PHYSICIAN NOTIFICATION FOR EARLY SIGNS AND SYMPTOMS OF EXACERBATION OR DETERIORATION. PT / ANALYST BUSINESS ANALYSIS TO EDUCATE ON ATRIAL FIBRILLATION SELF-MANAGEMENT. PT / ANALYST BUSINESS ANALYSIS TO EDUCATE ON PNEUMONIA / ASPIRATION PNEUMONIA SELF-MANAGEMENT. PT/ANALYST BUSINESS ANALYSIS TO IDENTIFY FALL RISK FACTORS; EDUCATE THE PATIENT/CAREGIVER ON WAYS TO REDUCE FALL RISK FACTORS AND ESTABLISH HOME EXERCISE PROGRAM TO MINIMIZE FALL RISK. MAY TEACH THE PATIENT FLOOR RECOVERY WHEN CLINICALLY APPROPRIATE [code = PT TO EVALUATE, OBSERVE / ASSESS, AND MONITOR, ANALYST BUSINESS ANALYSIS TO OBSERVE AND MONITOR, PROVIDE SKILLED THERAPEUTIC INTERVENTION, ACTIVITY, EDUCATION, AND TRAINING TO ADDRESS GEN. WEAKNESS, POOR OVERALL ACTIVITY TOLERANCE, AND FUNCTIONAL LIMITATIONS IMPACTING SAFETY AND INDEPENDENCE. BED MOBILITY (PT/ANALYST BUSINESS ANALYSIS) PT/ANALYST BUSINESS ANALYSIS TO PROVIDE GAIT TRAINING FOR IMPROVED MOBILITY AND /OR TO NORMALIZE GAIT PATTERN THERAPEUTIC EXERCISES AND ESTABLISHING A HOME EXERCISE PROGRAM (PT/ANALYST BUSINESS ANALYSIS) PT/ANALYST BUSINESS ANALYSIS TO PROVIDE STAIR TRAINING PT / ANALYST BUSINESS ANALYSIS TO MONITOR AND EDUCATE ON OXYGEN SATURATION DURING ADLS/IADLS, NOTIFY PHYSICIAN AND/OR THE RN CLINICAL PROMOTION SPECIALIST FOR PHYSICIAN NOTIFICATION AND IF O2 SATS BELOW PHYSICIAN ORDERED PARAMETERS AFTER 10 MIN OF REST PT / ANALYST BUSINESS ANALYSIS TO OBSERVE FOR EARLY SIGNS AND SYMPTOMS OF DEPRESSION OR DEPRESSION GETTING WORSE AND TO EDUCATE ON HOW TO FIND HELP. PT / ANALYST BUSINESS ANALYSIS MAY EDUCATE ON PAIN MANAGEMENT CLINICALLY INDICATED, INCLUDING NON-PHARMACOLOGICAL PAIN REDUCTION TECHNIQUES PT / ANALYST BUSINESS ANALYSIS TO MONITOR FOR HYPO/HYPERGLYCEMIA AND CONDUCT ROUTINE FOOT INSPECTIONS. RECORD PATIENT REPORTED BLOOD SUGAR LEVELS AND NOTIFY PHYSICIAN AND/OR THE RN CLINICAL PROMOTION SPECIALIST FOR PHYSICIAN NOTIFICATION IF BLOOD SUGAR LEVELS ARE OUTSIDE ORDERED PARAMETERS. TEACH PATIENT/CAREGIVER ON DAILY FOOT INSPECTIONS PT / ANALYST BUSINESS ANALYSIS TO INSTRUCT PATIENT/CAREGIVER ON RISK FOR HOSPITALIZATION/EMERGENCY ROOM VISITS, TEACH SIGNS AND SYMPTOMS THAT PUT PATIENT AT RISK, WHEN TO NOTIFY NURSE/PHYSICIAN OF COMPLICATIONS/DECLINE, AND WHEN TO CALL 911. PT/ANALYST BUSINESS ANALYSIS TO EDUCATE ON ARTHRITIS SELF-MANAGEMENT PT / ANALYST BUSINESS ANALYSIS TO EDUCATE ON HEART FAILURE SELF-MANAGEMENT PT / ANALYST BUSINESS ANALYSIS TO EDUCATE ON HYPERTENSION SELF-MANAGEMENT PT TO ASSESS / ANALYST BUSINESS ANALYSIS TO MONITOR CARDIO/RESPIRATORY SYSTEM; AND NOTIFY THE PHYSICIAN AND/OR THE RN CLINICAL PROMOTION SPECIALIST FOR PHYSICIAN NOTIFICATION FOR EARLY SIGNS AND SYMPTOMS OF EXACERBATION OR DETERIORATION. PT / ANALYST BUSINESS ANALYSIS TO EDUCATE ON ATRIAL FIBRILLATION SELF-MANAGEMENT. PT / ANALYST BUSINESS ANALYSIS TO EDUCATE ON PNEUMONIA / ASPIRATION PNEUMONIA SELF-MANAGEMENT. PT/ANALYST BUSINESS ANALYSIS TO IDENTIFY FALL RISK FACTORS; EDUCATE THE PATIENT/CAREGIVER ON WAYS TO REDUCE FALL RISK FACTORS AND ESTABLISH HOME EXERCISE PROGRAM TO MINIMIZE FALL RISK. MAY TEACH THE PATIENT FLOOR RECOVERY WHEN CLINICALLY APPROPRIATE] Future Scheduled Test AGENCY MAY PERFORM A RESUMPTION OF CARE VISIT FOLLOWING ANY HOSPITAL ADMISSION. OT TO EVALUATE, OBSERVE / ASSESS, AND MONITOR, DOWEL SANDER OPERATOR TO OBSERVE AND MONITOR, PROVIDE SKILLED THERAPEUTIC INTERVENTION, ACTIVITY, EDUCATION, AND TRAINING TO ADDRESS SAFETY AND INDEPENDENCE OF ADLS AND FUNCTIONAL TRANSFERS IN HOME ENVIRONMENT. ACTIVITIES OF DAILY LIVING (OT/MARIANNE) THERAPEUTIC EXERCISE (OT/DOWEL SANDER OPERATOR) ENERGY CONSERVATION/ACTIVITY DEMAND (OT/DOWEL SANDER OPERATOR) OT/DOWEL SANDER OPERATOR TO MONITOR AND EDUCATE ON OXYGEN SATURATION DURING ADLS/IADLS, NOTIFY PHYSICIAN AND/OR THE RN CLINICAL PROMOTION SPECIALIST FOR PHYSICIAN NOTIFICATION AND IF O2 SATS BELOW 90% AFTER 10 MIN OF REST. OT / DOWEL SANDER OPERATOR TO IDENTIFY FALL RISK FACTORS; EDUCATE THE PATIENT/CAREGIVER ON WAYS TO REDUCE FALL RISK FACTORS AND ESTABLISH HOME EXERCISE PROGRAM TO MINIMIZE FALL RISK. MAY TEACH THE PATIENT FLOOR RECOVERY WHEN CLINICALLY APPROPRIATE. OT/DOWEL SANDER OPERATOR TO EDUCATE ON HYPERTENSION SELF-MANAGEMENT OT/MARIANNE TO EDUCATE ON ATRIAL FIBRILLATION SELF-MANAGEMENT. [code = AGENCY MAY PERFORM A RESUMPTION OF CARE VISIT FOLLOWING ANY HOSPITAL ADMISSION. OT TO EVALUATE, OBSERVE / ASSESS, AND MONITOR, DOWEL SANDER OPERATOR TO OBSERVE AND MONITOR, PROVIDE SKILLED THERAPEUTIC INTERVENTION, ACTIVITY, EDUCATION, AND TRAINING TO ADDRESS SAFETY AND INDEPENDENCE OF ADLS AND FUNCTIONAL TRANSFERS IN HOME ENVIRONMENT. ACTIVITIES OF DAILY LIVING (OT/MARIANNE) THERAPEUTIC EXERCISE (OT/DOWEL SANDER OPERATOR) ENERGY CONSERVATION/ACTIVITY DEMAND (OT/MARIANNE) OT/DOWEL SANDER OPERATOR TO MONITOR AND EDUCATE ON OXYGEN SATURATION DURING ADLS/IADLS, NOTIFY PHYSICIAN AND/OR THE RN CLINICAL PROMOTION SPECIALIST FOR PHYSICIAN NOTIFICATION AND IF O2 SATS BELOW 90% AFTER 10 MIN OF REST. OT / MARIANNE TO IDENTIFY FALL RISK FACTORS; EDUCATE THE PATIENT/CAREGIVER ON WAYS TO REDUCE FALL RISK FACTORS AND ESTABLISH HOME EXERCISE PROGRAM TO MINIMIZE FALL RISK. MAY TEACH THE PATIENT FLOOR RECOVERY WHEN CLINICALLY APPROPRIATE. OT/DOWEL SANDER OPERATOR TO EDUCATE ON HYPERTENSION SELF-MANAGEMENT OT/MARIANNE TO [...] End Date/Time Encounter Type Admission Type Attending [facility] Care Department Encounter ID Discharge Date Discharge Status Discharge Condition Discharge Reason Percent Goals Met 2025-02-07 00:00:00 2025-04-07 00:00:00 Outpatient NEW ADMISSION [facility] [id number] [id number]
--- OUTSIDE RECORDS SUMMARY | 2025-04-06 18:00 | XMS_ITS | Clinical Summary ---
Author Organization Unknown Care Team Providers Care Gymnastics Coach Or Instructor Name Role Phone DIGNA ARIEL, ESTRELLA Unavailable Unava dinora STOKES RN, FRANKIE Unavailable Unavailabl e KARI PT, DIDI Unavailable Unavailable NAT ACCOUNTING MACHINE OPERATOR, GAUDENCIO Unavailable Unavailabl e RADHA OT, ROLANDO Unavailable Unavailable JOANNE STEVEN, HATTIE Unavailable Unavailable Payers Payer Name Policy Type Policy Number Effective Date Expira tion Date MEDICARE.[facility] [id number] Problems Condition Name Condition Details Condition Category Status Onset Date Resolution Date Last Treatment Date Treating Clinician Comments 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 02-07 [...] OF PNEUMONIA (RECURRENT) Active 02-07 00:00: 00 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 OF 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 STEROIDS Active 02-07 [...] 80 mg tablet 02-07 00:00: 00 Yes [id number] CHOLESTEROL 1 tablet DAILY 1 tablet DAILY (route: oral) Med Classific ation: Cardiovas cular Therapy Agents digoxin 125 mcg (0.125 mg) tablet 02-07 00:00: 00 02-21 23:59 :00 No [id number] HEART RHYTHM 1 tablet DAILY 1 tablet DAILY (route: oral) Med Classific ation: Cardiovas cular Therapy Agents escitalopra m 10 mg tablet 02-07 00:00: 00 Yes [id number] MOOD 1 tablet DAILY 1 tablet DAILY (route: oral) Med Classific ation: Central Nervous System Agents ezetimibe 10 mg tablet 02-07 00:00: 00 Yes [id number] CHOLESTEROL 1 tablet DAILY 1 tablet DAILY (route: oral) Med Classific ation: Cardiovas cular Therapy Agents metoprolol succinate ER 25 mg tablet,exte nded release 24 hr 02-07 00:00: 00 02-21 23:59 :00 No [id number] BLOOD PRESSURE 0.5 tablet DAILY 0.5 tablet DAILY (route: oral) Med Classific ation: Cardiovas cular Therapy Agents pantoprazol e 40 mg tablet,joão yed release 02-07 00:00: 00 02-21 23:59 :00 No [id number] STOMACH ACID 1 tablet DAILY 1 tablet DAILY (route: oral) Med Classific ation: Gastroint estinal Therapy Agents prednisone 5 mg tablet 02-07 00:00: 00 Yes [id number] ADRENAL INSUFFICIEN CY 1 tablet DAILY 1 tablet DAILY (route: oral) Med Classific ation: Endocrine spironolact one 25 mg tablet 02-07 00:00: 00 Yes [id number] FLUID RETENTION 0.5 tablet DAILY 0.5 tablet DAILY (route: oral) Med Classific ation: Cardiovas cular Therapy Agents tamsulosin 0.4 mg capsule 02-07 00:00: 00 02-21 23:59 :00 No [id number] URINARY HEALTH 1 capsule DAILY 1 capsule DAILY (route: oral) Med Classific ation: Genitouri nary Therapy acetaminoph en 325 mg tablet 2024-05 00:00: 00 Yes [id number] PAIN 2 tablet 2 TIMES DAILY 2 tablet 2 TIMES DAILY (route: oral) Med Classific ation: Analgesic , Anti-infl ammatory or Antipyret ic aspirin 81 mg tablet 2024-05 00:00: 00 Yes [id number] ANTICOAGULA NT 1 tablet DAILY 1 tablet DAILY (route: oral) Med Classific ation: Hematolog ical Agents ipratropium 0.5 mg-albutero l 3 mg (2.5 mg base)/3 mL nebulizatio n soln 2024-05 00:00: 00 Yes [id number] COPD 3 mL EVERY 6 HOURS 3 mL EVERY 6 HOURS (route: inhalation ) Med Classific ation: Respirato ry Therapy Agents Lanoxin 62.5 mcg (0.0625 mg) tablet 2024-05 00:00: 00 Yes [id number] CHF 1 tablet DAILY 1 tablet DAILY (route: oral) Med Classific ation: Cardiovas cular Therapy Agents Lasix 20 mg tablet 2024-05 00:00: 00 Yes [id number] CHF 1 tablet DAILY 1 tablet DAILY (route: oral) Med Classific ation: Cardiovas cular Therapy Agents Toprol XL 25 mg tablet,exte nded release 2024-05 00:00: 00 Yes [id number] BP 25 mg DAILY 25 mg DAILY [...] SYSTEM MANAGEMENT; RN TO ASSESS AND TEACH, TROMPER/GLASS SAGGER TO OBSERVE AND TEACH RELATED TO ALTERED RESPIRATORY STATUS TO MINIMIZE COMPLICATIONS AND REDUCE HOSPITALIZATION. [code = SN 1WK9 PT 1WK1 OT EFFECTIVE 02/10/2025K1 RESPIRATORY SYSTEM MANAGEMENT; RN TO ASSESS AND TEACH, TROMPER/GLASS SAGGER TO OBSERVE AND TEACH RELATED TO ALTERED RESPIRATORY STATUS TO MINIMIZE COMPLICATIONS AND REDUCE HOSPITALIZATION.] Future Scheduled Test TRACHEOSTO MY CARE MANAGEMENT; RN/TROMPER/GLASS SAGGER TO INSTRUCT PATIENT/CAREGIVER ON CARE AND MANAGEMENT OF TRACHEOSTOMY. RN/ TROMPER/GLASS SAGGER TO PROVIDE SKILLED TEACHING ON TRACH COLLAR SUCTIONING PRN WITH 14 FR SUCTION CATHETER PER PATIENT TRACH CARE WITH INNER CANNULA: REMOVE INNER CANNULA, CLEANSE WITH NORMAL SALINE AND OR STERILE WATER AND REINSERT NON-DISPOSABLE CANNULA SIZE OF INNER CANNULA 5 BROOKS [code = TRACHEOSTOMY CARE MANAGEMENT; RN/TROMPER/GLASS SAGGER TO INSTRUCT PATIENT/CAREGIVER ON CARE AND MANAGEMENT OF TRACHEOSTOMY. RN/ TROMPER/GLASS SAGGER TO PROVIDE SKILLED TEACHING ON TRACH COLLAR SUCTIONING PRN WITH 14 FR SUCTION CATHETER PER PATIENT TRACH CARE WITH INNER CANNULA: REMOVE INNER CANNULA, CLEANSE WITH NORMAL SALINE AND OR STERILE WATER AND REINSERT NON-DISPOSABLE CANNULA SIZE OF INNER CANNULA 5 BROOKS] Future Scheduled Test FALL REDUC TION MANAGEMENT; RN TO ASSESS AND OBSERVE, TROMPER/GLASS SAGGER TO OBSERVE FALL RISK FACTORS AND EDUCATE PATIENT/CAREGIVER ON STRATEGIES TO MINIMIZE THE RISK OF FALLING. [code = FALL REDUCTION MANAGEMENT; RN TO ASSESS AND OBSERVE, TROMPER/GLASS SAGGER TO OBSERVE FALL RISK FACTORS AND EDUCATE PATIENT/CAREGIVER ON STRATEGIES TO MINIMIZE THE RISK OF FALLING.] Future Scheduled Test ANEMIA MAN AGEMENT; RN TO ASSESS AND TEACH, GLASS SAGGER/TROMPER TO OBSERVE AND TEACH AND PROVIDE EDUCATION ON ANEMIA. [code = ANEMIA MANAGEMENT; RN TO ASSESS AND TEACH, GLASS SAGGER/TROMPER TO OBSERVE AND TEACH AND PROVIDE EDUCATION ON ANEMIA.] Future Scheduled Test RN TO OBSE RVE, ASSESS, EVALUATE, AND DEVELOP AN INDIVIDUALIZED PLAN OF CARE. AGENCY MAY ACCEPT ORDERS FROM CONSULTING PHYSICIANS RN TO OBSERVE AND ASSESS, TROMPER/GLASS SAGGER TO OBSERVE FOR RISK FOR FALLS AND INSTRUCT IN FALL PREVENTION, HOME SAFETY, MEDICATION MANAGEMENT, INFECTION PREVENTION, AND NUTRITION MANAGEMENT. RN/TROMPER/GLASS SAGGER NURSE MAY PERFORM O2 SATURATION LEVEL ON ADMISSION AND PRN FOR RN TO ASSESS/TROMPER TO OBSERVE PATIENT, WITH NOTIFICATION TO THE PHYSICIAN IF SATURATION IS 90% IN THE ABSENCE OF MORE SPECIFIC PARAMETERS FROM THE PHYSICIAN. AGENCY MAY PERFORM A RESUMPTION OF CARE VISIT FOLLOWING ANY HOSPITAL ADMISSION. RN/TROMPER/GLASS SAGGER TO MONITOR CO-MORBID CONDITIONS LISTED ON THE PLAN OF CARE AND ANY NEW CONDITIONS THAT PRESENT THEMSELVES DURING THIS EPISODE TO IDENTIFY CHANGES AND INTERVENE TO MINIMIZE COMPLICATIONS. [code = RN TO OBSERVE, ASSESS, EVALUATE, AND DEVELOP AN INDIVIDUALIZED PLAN OF CARE. AGENCY MAY ACCEPT ORDERS FROM CONSULTING PHYSICIANS RN TO OBSERVE AND ASSESS, TROMPER/GLASS SAGGER TO OBSERVE FOR RISK FOR FALLS AND INSTRUCT IN FALL PREVENTION, HOME SAFETY, MEDICATION MANAGEMENT, INFECTION PREVENTION, AND NUTRITION MANAGEMENT. RN/TROMPER/GLASS SAGGER NURSE MAY PERFORM O2 SATURATION LEVEL ON ADMISSION AND PRN FOR RN TO ASSESS/TROMPER TO OBSERVE PATIENT, WITH NOTIFICATION TO THE PHYSICIAN IF SATURATION IS 90% IN THE ABSENCE OF MORE SPECIFIC PARAMETERS FROM THE PHYSICIAN. AGENCY MAY PERFORM A RESUMPTION OF CARE VISIT FOLLOWING ANY HOSPITAL ADMISSION. RN/TROMPER/GLASS SAGGER TO MONITOR CO-MORBID CONDITIONS LISTED ON THE PLAN OF CARE AND ANY NEW CONDITIONS THAT PRESENT THEMSELVES DURING THIS EPISODE TO IDENTIFY CHANGES AND INTERVENE TO MINIMIZE COMPLICATIONS.] Future Scheduled Test PAIN MANAG EMENT; RN TO ASSESS AND TEACH, GLASS SAGGER/TROMPER TO OBSERVE AND TEACH AND PROVIDE EDUCATION ON PAIN MANAGEMENT TECHNIQUES. [code = PAIN MANAGEMENT; RN TO ASSESS AND TEACH, GLASS SAGGER/TROMPER TO OBSERVE AND TEACH AND PROVIDE EDUCATION ON PAIN MANAGEMENT TECHNIQUES.] Future Scheduled Test RISK FOR H OSPITALIZATION; RN TO ASSESS/TEACH, GLASS SAGGER/TROMPER TO OBSERVE/TEACH PATIENT/CAREGIVER ON RISK FOR HOSPITALIZATION/EMERGENCY ROOM VISITS, TEACH SIGNS AND SYMPTOMS THAT PUT PATIENT AT RISK, WHEN TO NOTIFY NURSE/PHYSICIAN OF COMPLICATIONS/DECLINE, AND WHEN TO CALL 911. [code = RISK FOR HOSPITALIZATION; RN TO ASSESS/TEACH, GLASS SAGGER/TROMPER TO OBSERVE/TEACH PATIENT/CAREGIVER ON RISK FOR HOSPITALIZATION/EMERGENCY ROOM VISITS, TEACH SIGNS AND SYMPTOMS THAT PUT PATIENT AT RISK, WHEN TO NOTIFY NURSE/PHYSICIAN OF COMPLICATIONS/DECLINE, AND WHEN TO CALL 911.] Future Scheduled Test CARDIOVASC ULAR SYSTEM; RN TO ASSESS/TEACH, TROMPER/GLASS SAGGER TO OBSERVE/TEACH RELATED TO ALTERED CARDIOVASCULAR STATUS TO MINIMIZE COMPLICATIONS AND REDUCE HOSPITALIZATION. [code = CARDIOVASCULAR SYSTEM; RN TO ASSESS/TEACH, TROMPER/GLASS SAGGER TO OBSERVE/TEACH RELATED TO ALTERED CARDIOVASCULAR STATUS TO MINIMIZE COMPLICATIONS AND REDUCE HOSPITALIZATION.] Future Scheduled Test HYPERTENSI ON MANAGEMENT; RN TO ASSESS AND TEACH, TROMPER/GLASS SAGGER TO OBSERVE AND TEACH WARNING SIGNS AND SYMPTOMS TO AVOID HOSPITALIZATION. [code = HYPERTENSION MANAGEMENT; RN TO ASSESS AND TEACH, TROMPER/GLASS SAGGER TO OBSERVE AND TEACH WARNING SIGNS AND SYMPTOMS TO AVOID HOSPITALIZATION.] Future Scheduled Test HEART FAIL URE MONITORING RN/GLASS SAGGER/TROMPER TO MONITOR PATIENT FOR SIGNS AND SYMPTOMS OF HEART FAILURE EXACERBATION, MONITOR FOR ADHERENCE WITH MEDICATION AND HEART FAILURE MANAGEMENT REGIMEN. [code = HEART FAILURE MONITORING RN/GLASS SAGGER/TROMPER TO MONITOR PATIENT FOR SIGNS AND SYMPTOMS OF HEART FAILURE EXACERBATION, MONITOR FOR ADHERENCE WITH MEDICATION AND HEART FAILURE MANAGEMENT REGIMEN.] Future Scheduled Test DIABETES M ONITORING RN/GLASS SAGGER/TROMPER TO MONITOR BLOOD SUGAR LOG FOR BLOOD SUGAR READINGS THAT ARE BEING CHECKED BY PATIENT, CAREGIVER NEEDED FOR SIGNS AND SYMPTOMS OF HYPER/HYPOGLYCEMIA. PATIENT THERAPEUTIC BLOOD SUGAR PARAMETERS ARE 70 - 300. REPORT BLOOD SUGARS OUT OF RANGE TO PHYSICIAN. NURSE MAY PERFORM FINGER STICK BLOOD GLUCOSE NEEDED FOR SIGNS AND SYMPTOMS OF HYPO AND HYPERGLYCEMIA. RN/GLASS SAGGER/TROMPER TO MONITOR ADHERENCE OF PATIENT/CAREGIVER PERFORMING DIABETIC FOOT CARE AND MAY PERFORM DIABETIC FOOT CARE PRN. RN/GLASS SAGGER/TROMPER TO MONITOR FOR ADHERENCE TO DIABETIC SELF-CARE AND MANAGEMENT INCLUDING MEDICATIONS. [code = DIABETES MONITORING RN/GLASS SAGGER/TROMPER TO MONITOR BLOOD SUGAR LOG FOR BLOOD SUGAR READINGS THAT ARE BEING CHECKED BY PATIENT, CAREGIVER NEEDED FOR SIGNS AND SYMPTOMS OF HYPER/HYPOGLYCEMIA. PATIENT THERAPEUTIC BLOOD SUGAR PARAMETERS ARE 70 - 300. REPORT BLOOD SUGARS OUT OF RANGE TO PHYSICIAN. NURSE MAY PERFORM FINGER STICK BLOOD GLUCOSE NEEDED FOR SIGNS AND SYMPTOMS OF HYPO AND HYPERGLYCEMIA. RN/GLASS SAGGER/TROMPER TO MONITOR ADHERENCE OF PATIENT/CAREGIVER PERFORMING DIABETIC FOOT CARE AND MAY PERFORM DIABETIC FOOT CARE PRN. RN/GLASS SAGGER/TROMPER TO MONITOR FOR ADHERENCE TO DIABETIC SELF-CARE AND MANAGEMENT INCLUDING MEDICATIONS.] Future Scheduled Test HYPOTENSIO N MANAGEMENT; RN TO ASSESS AND TEACH/ TROMPER /GLASS SAGGER TO OBSERVE AND TEACH WARNING SIGNS AND SYMPTOMS TO AVOID HOSPITALIZATION. [code = HYPOTENSION MANAGEMENT; RN TO ASSESS AND TEACH/ TROMPER /GLASS SAGGER TO OBSERVE AND TEACH WARNING SIGNS AND SYMPTOMS TO AVOID HOSPITALIZATION.] Future Scheduled Test ARRHYTHMIA MANAGEMENT; RN TO ASSESS AND TEACH, TROMPER/GLASS SAGGER TO OBSERVE AND TEACH WARNING SIGNS AND SYMPTOMS TO AVOID HOSPITALIZATION. [code = ARRHYTHMIA MANAGEMENT; RN TO ASSESS AND TEACH, TROMPER/GLASS SAGGER TO OBSERVE AND TEACH WARNING SIGNS AND SYMPTOMS TO AVOID HOSPITALIZATION.] Future Scheduled Test MEDICATION MANAGEMENT; RN/TROMPER/GLASS SAGGER TO REVIEW MEDICATIONS FOR INTERACTIONS, EFFECTIVENESS OF DRUG THERAPY, AND SIGNS/SYMPTOMS OF ADVERSE REACTIONS. MAY INSTRUCT AND REINFORCE MEDICATION TEACHING RELATED TO THE USE OF MEDICATIONS, DOSAGE, FREQUENCY, PURPOSE, SIDE EFFECTS, AND TO REPORT COMPLICATIONS. [code = MEDICATION MANAGEMENT; RN/TROMPER/GLASS SAGGER TO REVIEW MEDICATIONS FOR INTERACTIONS, EFFECTIVENESS OF [...] EVAL UATE, OBSERVE / ASSESS, AND MONITOR, ACCOUNTING MACHINE OPERATOR TO OBSERVE AND MONITOR, PROVIDE SKILLED THERAPEUTIC INTERVENTION, ACTIVITY, EDUCATION, AND TRAINING TO ADDRESS GEN. WEAKNESS, POOR OVERALL ACTIVITY TOLERANCE, AND FUNCTIONAL LIMITATIONS IMPACTING SAFETY AND INDEPENDENCE. BED MOBILITY (PT/ACCOUNTING MACHINE OPERATOR) PT/ACCOUNTING MACHINE OPERATOR TO PROVIDE GAIT TRAINING FOR IMPROVED MOBILITY AND /OR TO NORMALIZE GAIT PATTERN THERAPEUTIC EXERCISES AND ESTABLISHING A HOME EXERCISE PROGRAM (PT/ACCOUNTING MACHINE OPERATOR) PT/ACCOUNTING MACHINE OPERATOR TO PROVIDE STAIR TRAINING PT / ACCOUNTING MACHINE OPERATOR TO MONITOR AND EDUCATE ON OXYGEN SATURATION DURING ADLS/IADLS, NOTIFY PHYSICIAN AND/OR THE RN CLINICAL BUS OPERATOR FOR PHYSICIAN NOTIFICATION AND IF O2 SATS BELOW PHYSICIAN ORDERED PARAMETERS AFTER 10 MIN OF REST PT / ACCOUNTING MACHINE OPERATOR TO OBSERVE FOR EARLY SIGNS AND SYMPTOMS OF DEPRESSION OR DEPRESSION GETTING WORSE AND TO EDUCATE ON HOW TO FIND HELP. PT / ACCOUNTING MACHINE OPERATOR MAY EDUCATE ON PAIN MANAGEMENT CLINICALLY INDICATED, INCLUDING NON-PHARMACOLOGICAL PAIN REDUCTION TECHNIQUES PT / ACCOUNTING MACHINE OPERATOR TO MONITOR FOR HYPO/HYPERGLYCEMIA AND CONDUCT ROUTINE FOOT INSPECTIONS. RECORD PATIENT REPORTED BLOOD SUGAR LEVELS AND NOTIFY PHYSICIAN AND/OR THE RN CLINICAL BUS OPERATOR FOR PHYSICIAN NOTIFICATION IF BLOOD SUGAR LEVELS ARE OUTSIDE ORDERED PARAMETERS. TEACH PATIENT/CAREGIVER ON DAILY FOOT INSPECTIONS PT / ACCOUNTING MACHINE OPERATOR TO INSTRUCT PATIENT/CAREGIVER ON RISK FOR HOSPITALIZATION/EMERGENCY ROOM VISITS, TEACH SIGNS AND SYMPTOMS THAT PUT PATIENT AT RISK, WHEN TO NOTIFY NURSE/PHYSICIAN OF COMPLICATIONS/DECLINE, AND WHEN TO CALL 911. PT/ACCOUNTING MACHINE OPERATOR TO EDUCATE ON ARTHRITIS SELF-MANAGEMENT PT / ACCOUNTING MACHINE OPERATOR TO EDUCATE ON HEART FAILURE SELF-MANAGEMENT PT / ACCOUNTING MACHINE OPERATOR TO EDUCATE ON HYPERTENSION SELF-MANAGEMENT PT TO ASSESS / ACCOUNTING MACHINE OPERATOR TO MONITOR CARDIO/RESPIRATORY SYSTEM; AND NOTIFY THE PHYSICIAN AND/OR THE RN CLINICAL BUS OPERATOR FOR PHYSICIAN NOTIFICATION FOR EARLY SIGNS AND SYMPTOMS OF EXACERBATION OR DETERIORATION. PT / ACCOUNTING MACHINE OPERATOR TO EDUCATE ON ATRIAL FIBRILLATION SELF-MANAGEMENT. PT / ACCOUNTING MACHINE OPERATOR TO EDUCATE ON PNEUMONIA / ASPIRATION PNEUMONIA SELF-MANAGEMENT. PT/ACCOUNTING MACHINE OPERATOR TO IDENTIFY FALL RISK FACTORS; EDUCATE THE PATIENT/CAREGIVER ON WAYS TO REDUCE FALL RISK FACTORS AND ESTABLISH HOME EXERCISE PROGRAM TO MINIMIZE FALL RISK. MAY TEACH THE PATIENT FLOOR RECOVERY WHEN CLINICALLY APPROPRIATE [code = PT TO EVALUATE, OBSERVE / ASSESS, AND MONITOR, ACCOUNTING MACHINE OPERATOR TO OBSERVE AND MONITOR, PROVIDE SKILLED THERAPEUTIC INTERVENTION, ACTIVITY, EDUCATION, AND TRAINING TO ADDRESS GEN. WEAKNESS, POOR OVERALL ACTIVITY TOLERANCE, AND FUNCTIONAL LIMITATIONS IMPACTING SAFETY AND INDEPENDENCE. BED MOBILITY (PT/ACCOUNTING MACHINE OPERATOR) PT/ACCOUNTING MACHINE OPERATOR TO PROVIDE GAIT TRAINING FOR IMPROVED MOBILITY AND /OR TO NORMALIZE GAIT PATTERN THERAPEUTIC EXERCISES AND ESTABLISHING A HOME EXERCISE PROGRAM (PT/ACCOUNTING MACHINE OPERATOR) PT/ACCOUNTING MACHINE OPERATOR TO PROVIDE STAIR TRAINING PT / ACCOUNTING MACHINE OPERATOR TO MONITOR AND EDUCATE ON OXYGEN SATURATION DURING ADLS/IADLS, NOTIFY PHYSICIAN AND/OR THE RN CLINICAL BUS OPERATOR FOR PHYSICIAN NOTIFICATION AND IF O2 SATS BELOW PHYSICIAN ORDERED PARAMETERS AFTER 10 MIN OF REST PT / ACCOUNTING MACHINE OPERATOR TO OBSERVE FOR EARLY SIGNS AND SYMPTOMS OF DEPRESSION OR DEPRESSION GETTING WORSE AND TO EDUCATE ON HOW TO FIND HELP. PT / ACCOUNTING MACHINE OPERATOR MAY EDUCATE ON PAIN MANAGEMENT CLINICALLY INDICATED, INCLUDING NON-PHARMACOLOGICAL PAIN REDUCTION TECHNIQUES PT / ACCOUNTING MACHINE OPERATOR TO MONITOR FOR HYPO/HYPERGLYCEMIA AND CONDUCT ROUTINE FOOT INSPECTIONS. RECORD PATIENT REPORTED BLOOD SUGAR LEVELS AND NOTIFY PHYSICIAN AND/OR THE RN CLINICAL BUS OPERATOR FOR PHYSICIAN NOTIFICATION IF BLOOD SUGAR LEVELS ARE OUTSIDE ORDERED PARAMETERS. TEACH PATIENT/CAREGIVER ON DAILY FOOT INSPECTIONS PT / ACCOUNTING MACHINE OPERATOR TO INSTRUCT PATIENT/CAREGIVER ON RISK FOR HOSPITALIZATION/EMERGENCY ROOM VISITS, TEACH SIGNS AND SYMPTOMS THAT PUT PATIENT AT RISK, WHEN TO NOTIFY NURSE/PHYSICIAN OF COMPLICATIONS/DECLINE, AND WHEN TO CALL 911. PT/ACCOUNTING MACHINE OPERATOR TO EDUCATE ON ARTHRITIS SELF-MANAGEMENT PT / ACCOUNTING MACHINE OPERATOR TO EDUCATE ON HEART FAILURE SELF-MANAGEMENT PT / ACCOUNTING MACHINE OPERATOR TO EDUCATE ON HYPERTENSION SELF-MANAGEMENT PT TO ASSESS / ACCOUNTING MACHINE OPERATOR TO MONITOR CARDIO/RESPIRATORY SYSTEM; AND NOTIFY THE PHYSICIAN AND/OR THE RN CLINICAL BUS OPERATOR FOR PHYSICIAN NOTIFICATION FOR EARLY SIGNS AND SYMPTOMS OF EXACERBATION OR DETERIORATION. PT / ACCOUNTING MACHINE OPERATOR TO EDUCATE ON ATRIAL FIBRILLATION SELF-MANAGEMENT. PT / ACCOUNTING MACHINE OPERATOR TO EDUCATE ON PNEUMONIA / ASPIRATION PNEUMONIA SELF-MANAGEMENT. PT/ACCOUNTING MACHINE OPERATOR TO IDENTIFY FALL RISK FACTORS; EDUCATE THE PATIENT/CAREGIVER ON WAYS TO REDUCE FALL RISK FACTORS AND ESTABLISH HOME EXERCISE PROGRAM TO MINIMIZE FALL RISK. MAY TEACH THE PATIENT FLOOR RECOVERY WHEN CLINICALLY APPROPRIATE] Future Scheduled Test AGENCY MAY PERFORM A RESUMPTION OF CARE VISIT FOLLOWING ANY HOSPITAL ADMISSION. OT TO EVALUATE, OBSERVE / ASSESS, AND MONITOR, CUTTER IN TO OBSERVE AND MONITOR, PROVIDE SKILLED THERAPEUTIC INTERVENTION, ACTIVITY, EDUCATION, AND TRAINING TO ADDRESS SAFETY AND INDEPENDENCE OF ADLS AND FUNCTIONAL TRANSFERS IN HOME ENVIRONMENT. ACTIVITIES OF DAILY LIVING (OT/MARIANNE) THERAPEUTIC EXERCISE (OT/CUTTER IN) ENERGY CONSERVATION/ACTIVITY DEMAND (OT/CUTTER IN) OT/CUTTER IN TO MONITOR AND EDUCATE ON OXYGEN SATURATION DURING ADLS/IADLS, NOTIFY PHYSICIAN AND/OR THE RN CLINICAL BUS OPERATOR FOR PHYSICIAN NOTIFICATION AND IF O2 SATS BELOW 90% AFTER 10 MIN OF REST. OT / CUTTER IN TO IDENTIFY FALL RISK FACTORS; EDUCATE THE PATIENT/CAREGIVER ON WAYS TO REDUCE FALL RISK FACTORS AND ESTABLISH HOME EXERCISE PROGRAM TO MINIMIZE FALL RISK. MAY TEACH THE PATIENT FLOOR RECOVERY WHEN CLINICALLY APPROPRIATE. OT/CUTTER IN TO EDUCATE ON HYPERTENSION SELF-MANAGEMENT OT/MARIANNE TO EDUCATE ON ATRIAL FIBRILLATION SELF-MANAGEMENT. [code = AGENCY MAY PERFORM A RESUMPTION OF CARE VISIT FOLLOWING ANY HOSPITAL ADMISSION. OT TO EVALUATE, OBSERVE / ASSESS, AND MONITOR, CUTTER IN TO OBSERVE AND MONITOR, PROVIDE SKILLED THERAPEUTIC INTERVENTION, ACTIVITY, EDUCATION, AND TRAINING TO ADDRESS SAFETY AND INDEPENDENCE OF ADLS AND FUNCTIONAL TRANSFERS IN HOME ENVIRONMENT. ACTIVITIES OF DAILY LIVING (OT/MARIANNE) THERAPEUTIC EXERCISE (OT/CUTTER IN) ENERGY CONSERVATION/ACTIVITY DEMAND (OT/MARIANNE) OT/CUTTER IN TO MONITOR AND EDUCATE ON OXYGEN SATURATION DURING ADLS/IADLS, NOTIFY PHYSICIAN AND/OR THE RN CLINICAL BUS OPERATOR FOR PHYSICIAN NOTIFICATION AND IF O2 SATS BELOW 90% AFTER 10 MIN OF REST. OT / MARIANNE TO IDENTIFY FALL RISK FACTORS; EDUCATE THE PATIENT/CAREGIVER ON WAYS TO REDUCE FALL RISK FACTORS AND ESTABLISH HOME EXERCISE PROGRAM TO MINIMIZE FALL RISK. MAY TEACH THE PATIENT FLOOR RECOVERY WHEN CLINICALLY APPROPRIATE. OT/CUTTER IN TO EDUCATE ON HYPERTENSION SELF-MANAGEMENT OT/MARIANNE TO [...] OF SKIN INTEGRITY ISSUES FROM SBA TO PA WITHIN 2 WKS. PT STG: PATIENT WILL [...] TO SAFELY NEGOTIATE STAIRS FROM SBA TO PA WITH 2 STEPS W/O HANDRAIL VIA FRONT [...] Outpatient NEW ADMISSION FR[facility] STOK[facility] [id number]
--- OUTSIDE RECORDS SUMMARY | 2025-04-06 18:00 | XMS_ITS | Clinical Summary ---
Author Organization Unknown Care Team Providers Care Finished Goods Stock Clerk Name Role Phone DIGNA ARIEL, ESTRELLA Unavailable Unava dinora STOKES RN, FRANKIE Unavailable Unavailabl e KARI PT, DIDI Unavailable Unavailable NAT COMMUNITY MARKETING COORDINATOR, GAUDENCIO Unavailable Unavailabl e RADHA OT, ROLANDO Unavailable Unavailable JOANNE STEVEN, HATTIE Unavailable Unavailable Payers Payer Name Policy Type Policy Number Effective Date Expira tion Date MEDICARE.[facility] [id number] Problems Condition Name Condition Details Condition Category Status Onset Date Resolution Date Last Treatment Date Treating Clinician Comments 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 02-07 [...] OF PNEUMONIA (RECURRENT) Active 02-07 00:00: 00 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) USE OF SYSTEMIC STEROIDS Active 02-07 [...] 80 mg tablet 02-07 00:00: 00 Yes [id number] CHOLESTEROL 1 tablet DAILY 1 tablet DAILY (route: oral) Med Classific ation: Cardiovas cular Therapy Agents digoxin 125 mcg (0.125 mg) tablet 02-07 00:00: 00 02-21 23:59 :00 No [id number] HEART RHYTHM 1 tablet DAILY 1 tablet DAILY (route: oral) Med Classific ation: Cardiovas cular Therapy Agents escitalopra m 10 mg tablet 02-07 00:00: 00 Yes [id number] MOOD 1 tablet DAILY 1 tablet DAILY (route: oral) Med Classific ation: Central Nervous System Agents ezetimibe 10 mg tablet 02-07 00:00: 00 Yes [id number] CHOLESTEROL 1 tablet DAILY 1 tablet DAILY (route: oral) Med Classific ation: Cardiovas cular Therapy Agents metoprolol succinate ER 25 mg tablet,exte nded release 24 hr 02-07 00:00: 00 02-21 23:59 :00 No [id number] BLOOD PRESSURE 0.5 tablet DAILY 0.5 tablet DAILY (route: oral) Med Classific ation: Cardiovas cular Therapy Agents pantoprazol e 40 mg tablet,joão yed release 02-07 00:00: 00 02-21 23:59 :00 No [id number] STOMACH ACID 1 tablet DAILY 1 tablet DAILY (route: oral) Med Classific ation: Gastroint estinal Therapy Agents prednisone 5 mg tablet 02-07 00:00: 00 Yes [id number] ADRENAL INSUFFICIEN CY 1 tablet DAILY 1 tablet DAILY (route: oral) Med Classific ation: Endocrine spironolact one 25 mg tablet 02-07 00:00: 00 Yes [id number] FLUID RETENTION 0.5 tablet DAILY 0.5 tablet DAILY (route: oral) Med Classific ation: Cardiovas cular Therapy Agents tamsulosin 0.4 mg capsule 02-07 00:00: 00 02-21 23:59 :00 No [id number] URINARY HEALTH 1 capsule DAILY 1 capsule DAILY (route: oral) Med Classific ation: Genitouri nary Therapy acetaminoph en 325 mg tablet 2024-05 00:00: 00 Yes [id number] PAIN 2 tablet 2 TIMES DAILY 2 tablet 2 TIMES DAILY (route: oral) Med Classific ation: Analgesic , Anti-infl ammatory or Antipyret ic aspirin 81 mg tablet 2024-05 00:00: 00 Yes [id number] ANTICOAGULA NT 1 tablet DAILY 1 tablet DAILY (route: oral) Med Classific ation: Hematolog ical Agents ipratropium 0.5 mg-albutero l 3 mg (2.5 mg base)/3 mL nebulizatio n soln 2024-05 00:00: 00 Yes [id number] COPD 3 mL EVERY 6 HOURS 3 mL EVERY 6 HOURS (route: inhalation ) Med Classific ation: Respirato ry Therapy Agents Lanoxin 62.5 mcg (0.0625 mg) tablet 2024-05 00:00: 00 Yes [id number] CHF 1 tablet DAILY 1 tablet DAILY (route: oral) Med Classific ation: Cardiovas cular Therapy Agents Lasix 20 mg tablet 2024-05 00:00: 00 Yes [id number] CHF 1 tablet DAILY 1 tablet DAILY (route: oral) Med Classific ation: Cardiovas cular Therapy Agents Toprol XL 25 mg tablet,exte nded release 2024-05 00:00: 00 Yes [id number] BP 25 mg DAILY 25 mg DAILY [...] SYSTEM MANAGEMENT; RN TO ASSESS AND TEACH, DISTRICT SALES LEADER/MULTIPLEX OPERATOR TO OBSERVE AND TEACH RELATED TO ALTERED RESPIRATORY STATUS TO MINIMIZE COMPLICATIONS AND REDUCE HOSPITALIZATION. [code = SN 1WK9 PT 1WK1 OT EFFECTIVE 02/10/2025K1 RESPIRATORY SYSTEM MANAGEMENT; RN TO ASSESS AND TEACH, DISTRICT SALES LEADER/MULTIPLEX OPERATOR TO OBSERVE AND TEACH RELATED TO ALTERED RESPIRATORY STATUS TO MINIMIZE COMPLICATIONS AND REDUCE HOSPITALIZATION.] Future Scheduled Test TRACHEOSTO MY CARE MANAGEMENT; RN/DISTRICT SALES LEADER/MULTIPLEX OPERATOR TO INSTRUCT PATIENT/CAREGIVER ON CARE AND MANAGEMENT OF TRACHEOSTOMY. RN/ DISTRICT SALES LEADER/MULTIPLEX OPERATOR TO PROVIDE SKILLED TEACHING ON TRACH COLLAR SUCTIONING PRN WITH 14 FR SUCTION CATHETER PER PATIENT TRACH CARE WITH INNER CANNULA: REMOVE INNER CANNULA, CLEANSE WITH NORMAL SALINE AND OR STERILE WATER AND REINSERT NON-DISPOSABLE CANNULA SIZE OF INNER CANNULA 5 BROOKS [code = TRACHEOSTOMY CARE MANAGEMENT; RN/DISTRICT SALES LEADER/MULTIPLEX OPERATOR TO INSTRUCT PATIENT/CAREGIVER ON CARE AND MANAGEMENT OF TRACHEOSTOMY. RN/ DISTRICT SALES LEADER/MULTIPLEX OPERATOR TO PROVIDE SKILLED TEACHING ON TRACH COLLAR SUCTIONING PRN WITH 14 FR SUCTION CATHETER PER PATIENT TRACH CARE WITH INNER CANNULA: REMOVE INNER CANNULA, CLEANSE WITH NORMAL SALINE AND OR STERILE WATER AND REINSERT NON-DISPOSABLE CANNULA SIZE OF INNER CANNULA 5 BROOKS] Future Scheduled Test FALL REDUC TION MANAGEMENT; RN TO ASSESS AND OBSERVE, DISTRICT SALES LEADER/MULTIPLEX OPERATOR TO OBSERVE FALL RISK FACTORS AND EDUCATE PATIENT/CAREGIVER ON STRATEGIES TO MINIMIZE THE RISK OF FALLING. [code = FALL REDUCTION MANAGEMENT; RN TO ASSESS AND OBSERVE, DISTRICT SALES LEADER/MULTIPLEX OPERATOR TO OBSERVE FALL RISK FACTORS AND EDUCATE PATIENT/CAREGIVER ON STRATEGIES TO MINIMIZE THE RISK OF FALLING.] Future Scheduled Test ANEMIA MAN AGEMENT; RN TO ASSESS AND TEACH, MULTIPLEX OPERATOR/DISTRICT SALES LEADER TO OBSERVE AND TEACH AND PROVIDE EDUCATION ON ANEMIA. [code = ANEMIA MANAGEMENT; RN TO ASSESS AND TEACH, MULTIPLEX OPERATOR/DISTRICT SALES LEADER TO OBSERVE AND TEACH AND PROVIDE EDUCATION ON ANEMIA.] Future Scheduled Test RN TO OBSE RVE, ASSESS, EVALUATE, AND DEVELOP AN INDIVIDUALIZED PLAN OF CARE. AGENCY MAY ACCEPT ORDERS FROM CONSULTING PHYSICIANS RN TO OBSERVE AND ASSESS, DISTRICT SALES LEADER/MULTIPLEX OPERATOR TO OBSERVE FOR RISK FOR FALLS AND INSTRUCT IN FALL PREVENTION, HOME SAFETY, MEDICATION MANAGEMENT, INFECTION PREVENTION, AND NUTRITION MANAGEMENT. RN/DISTRICT SALES LEADER/MULTIPLEX OPERATOR NURSE MAY PERFORM O2 SATURATION LEVEL ON ADMISSION AND PRN FOR RN TO ASSESS/DISTRICT SALES LEADER TO OBSERVE PATIENT, WITH NOTIFICATION TO THE PHYSICIAN IF SATURATION IS 90% IN THE ABSENCE OF MORE SPECIFIC PARAMETERS FROM THE PHYSICIAN. AGENCY MAY PERFORM A RESUMPTION OF CARE VISIT FOLLOWING ANY HOSPITAL ADMISSION. RN/DISTRICT SALES LEADER/MULTIPLEX OPERATOR TO MONITOR CO-MORBID CONDITIONS LISTED ON THE PLAN OF CARE AND ANY NEW CONDITIONS THAT PRESENT THEMSELVES DURING THIS EPISODE TO IDENTIFY CHANGES AND INTERVENE TO MINIMIZE COMPLICATIONS. [code = RN TO OBSERVE, ASSESS, EVALUATE, AND DEVELOP AN INDIVIDUALIZED PLAN OF CARE. AGENCY MAY ACCEPT ORDERS FROM CONSULTING PHYSICIANS RN TO OBSERVE AND ASSESS, DISTRICT SALES LEADER/MULTIPLEX OPERATOR TO OBSERVE FOR RISK FOR FALLS AND INSTRUCT IN FALL PREVENTION, HOME SAFETY, MEDICATION MANAGEMENT, INFECTION PREVENTION, AND NUTRITION MANAGEMENT. RN/DISTRICT SALES LEADER/MULTIPLEX OPERATOR NURSE MAY PERFORM O2 SATURATION LEVEL ON ADMISSION AND PRN FOR RN TO ASSESS/DISTRICT SALES LEADER TO OBSERVE PATIENT, WITH NOTIFICATION TO THE PHYSICIAN IF SATURATION IS 90% IN THE ABSENCE OF MORE SPECIFIC PARAMETERS FROM THE PHYSICIAN. AGENCY MAY PERFORM A RESUMPTION OF CARE VISIT FOLLOWING ANY HOSPITAL ADMISSION. RN/DISTRICT SALES LEADER/MULTIPLEX OPERATOR TO MONITOR CO-MORBID CONDITIONS LISTED ON THE PLAN OF CARE AND ANY NEW CONDITIONS THAT PRESENT THEMSELVES DURING THIS EPISODE TO IDENTIFY CHANGES AND INTERVENE TO MINIMIZE COMPLICATIONS.] Future Scheduled Test PAIN MANAG EMENT; RN TO ASSESS AND TEACH, MULTIPLEX OPERATOR/DISTRICT SALES LEADER TO OBSERVE AND TEACH AND PROVIDE EDUCATION ON PAIN MANAGEMENT TECHNIQUES. [code = PAIN MANAGEMENT; RN TO ASSESS AND TEACH, MULTIPLEX OPERATOR/DISTRICT SALES LEADER TO OBSERVE AND TEACH AND PROVIDE EDUCATION ON PAIN MANAGEMENT TECHNIQUES.] Future Scheduled Test RISK FOR H OSPITALIZATION; RN TO ASSESS/TEACH, MULTIPLEX OPERATOR/DISTRICT SALES LEADER TO OBSERVE/TEACH PATIENT/CAREGIVER ON RISK FOR HOSPITALIZATION/EMERGENCY ROOM VISITS, TEACH SIGNS AND SYMPTOMS THAT PUT PATIENT AT RISK, WHEN TO NOTIFY NURSE/PHYSICIAN OF COMPLICATIONS/DECLINE, AND WHEN TO CALL 911. [code = RISK FOR HOSPITALIZATION; RN TO ASSESS/TEACH, MULTIPLEX OPERATOR/DISTRICT SALES LEADER TO OBSERVE/TEACH PATIENT/CAREGIVER ON RISK FOR HOSPITALIZATION/EMERGENCY ROOM VISITS, TEACH SIGNS AND SYMPTOMS THAT PUT PATIENT AT RISK, WHEN TO NOTIFY NURSE/PHYSICIAN OF COMPLICATIONS/DECLINE, AND WHEN TO CALL 911.] Future Scheduled Test CARDIOVASC ULAR SYSTEM; RN TO ASSESS/TEACH, DISTRICT SALES LEADER/MULTIPLEX OPERATOR TO OBSERVE/TEACH RELATED TO ALTERED CARDIOVASCULAR STATUS TO MINIMIZE COMPLICATIONS AND REDUCE HOSPITALIZATION. [code = CARDIOVASCULAR SYSTEM; RN TO ASSESS/TEACH, DISTRICT SALES LEADER/MULTIPLEX OPERATOR TO OBSERVE/TEACH RELATED TO ALTERED CARDIOVASCULAR STATUS TO MINIMIZE COMPLICATIONS AND REDUCE HOSPITALIZATION.] Future Scheduled Test HYPERTENSI ON MANAGEMENT; RN TO ASSESS AND TEACH, DISTRICT SALES LEADER/MULTIPLEX OPERATOR TO OBSERVE AND TEACH WARNING SIGNS AND SYMPTOMS TO AVOID HOSPITALIZATION. [code = HYPERTENSION MANAGEMENT; RN TO ASSESS AND TEACH, DISTRICT SALES LEADER/MULTIPLEX OPERATOR TO OBSERVE AND TEACH WARNING SIGNS AND SYMPTOMS TO AVOID HOSPITALIZATION.] Future Scheduled Test HEART FAIL URE MONITORING RN/MULTIPLEX OPERATOR/DISTRICT SALES LEADER TO MONITOR PATIENT FOR SIGNS AND SYMPTOMS OF HEART FAILURE EXACERBATION, MONITOR FOR ADHERENCE WITH MEDICATION AND HEART FAILURE MANAGEMENT REGIMEN. [code = HEART FAILURE MONITORING RN/MULTIPLEX OPERATOR/DISTRICT SALES LEADER TO MONITOR PATIENT FOR SIGNS AND SYMPTOMS OF HEART FAILURE EXACERBATION, MONITOR FOR ADHERENCE WITH MEDICATION AND HEART FAILURE MANAGEMENT REGIMEN.] Future Scheduled Test DIABETES M ONITORING RN/MULTIPLEX OPERATOR/DISTRICT SALES LEADER TO MONITOR BLOOD SUGAR LOG FOR BLOOD SUGAR READINGS THAT ARE BEING CHECKED BY PATIENT, CAREGIVER NEEDED FOR SIGNS AND SYMPTOMS OF HYPER/HYPOGLYCEMIA. PATIENT THERAPEUTIC BLOOD SUGAR PARAMETERS ARE 70 - 300. REPORT BLOOD SUGARS OUT OF RANGE TO PHYSICIAN. NURSE MAY PERFORM FINGER STICK BLOOD GLUCOSE NEEDED FOR SIGNS AND SYMPTOMS OF HYPO AND HYPERGLYCEMIA. RN/MULTIPLEX OPERATOR/DISTRICT SALES LEADER TO MONITOR ADHERENCE OF PATIENT/CAREGIVER PERFORMING DIABETIC FOOT CARE AND MAY PERFORM DIABETIC FOOT CARE PRN. RN/MULTIPLEX OPERATOR/DISTRICT SALES LEADER TO MONITOR FOR ADHERENCE TO DIABETIC SELF-CARE AND MANAGEMENT INCLUDING MEDICATIONS. [code = DIABETES MONITORING RN/MULTIPLEX OPERATOR/DISTRICT SALES LEADER TO MONITOR BLOOD SUGAR LOG FOR BLOOD SUGAR READINGS THAT ARE BEING CHECKED BY PATIENT, CAREGIVER NEEDED FOR SIGNS AND SYMPTOMS OF HYPER/HYPOGLYCEMIA. PATIENT THERAPEUTIC BLOOD SUGAR PARAMETERS ARE 70 - 300. REPORT BLOOD SUGARS OUT OF RANGE TO PHYSICIAN. NURSE MAY PERFORM FINGER STICK BLOOD GLUCOSE NEEDED FOR SIGNS AND SYMPTOMS OF HYPO AND HYPERGLYCEMIA. RN/MULTIPLEX OPERATOR/DISTRICT SALES LEADER TO MONITOR ADHERENCE OF PATIENT/CAREGIVER PERFORMING DIABETIC FOOT CARE AND MAY PERFORM DIABETIC FOOT CARE PRN. RN/MULTIPLEX OPERATOR/DISTRICT SALES LEADER TO MONITOR FOR ADHERENCE TO DIABETIC SELF-CARE AND MANAGEMENT INCLUDING MEDICATIONS.] Future Scheduled Test HYPOTENSIO N MANAGEMENT; RN TO ASSESS AND TEACH/ DISTRICT SALES LEADER /MULTIPLEX OPERATOR TO OBSERVE AND TEACH WARNING SIGNS AND SYMPTOMS TO AVOID HOSPITALIZATION. [code = HYPOTENSION MANAGEMENT; RN TO ASSESS AND TEACH/ DISTRICT SALES LEADER /MULTIPLEX OPERATOR TO OBSERVE AND TEACH WARNING SIGNS AND SYMPTOMS TO AVOID HOSPITALIZATION.] Future Scheduled Test ARRHYTHMIA MANAGEMENT; RN TO ASSESS AND TEACH, DISTRICT SALES LEADER/MULTIPLEX OPERATOR TO OBSERVE AND TEACH WARNING SIGNS AND SYMPTOMS TO AVOID HOSPITALIZATION. [code = ARRHYTHMIA MANAGEMENT; RN TO ASSESS AND TEACH, DISTRICT SALES LEADER/MULTIPLEX OPERATOR TO OBSERVE AND TEACH WARNING SIGNS AND SYMPTOMS TO AVOID HOSPITALIZATION.] Future Scheduled Test MEDICATION MANAGEMENT; RN/DISTRICT SALES LEADER/MULTIPLEX OPERATOR TO REVIEW MEDICATIONS FOR INTERACTIONS, EFFECTIVENESS OF DRUG THERAPY, AND SIGNS/SYMPTOMS OF ADVERSE REACTIONS. MAY INSTRUCT AND REINFORCE MEDICATION TEACHING RELATED TO THE USE OF MEDICATIONS, DOSAGE, FREQUENCY, PURPOSE, SIDE EFFECTS, AND TO REPORT COMPLICATIONS. [code = MEDICATION MANAGEMENT; RN/DISTRICT SALES LEADER/MULTIPLEX OPERATOR TO REVIEW MEDICATIONS FOR INTERACTIONS, EFFECTIVENESS OF [...] EVAL UATE, OBSERVE / ASSESS, AND MONITOR, COMMUNITY MARKETING COORDINATOR TO OBSERVE AND MONITOR, PROVIDE SKILLED THERAPEUTIC INTERVENTION, ACTIVITY, EDUCATION, AND TRAINING TO ADDRESS GEN. WEAKNESS, POOR OVERALL ACTIVITY TOLERANCE, AND FUNCTIONAL LIMITATIONS IMPACTING SAFETY AND INDEPENDENCE. BED MOBILITY (PT/COMMUNITY MARKETING COORDINATOR) PT/COMMUNITY MARKETING COORDINATOR TO PROVIDE GAIT TRAINING FOR IMPROVED MOBILITY AND /OR TO NORMALIZE GAIT PATTERN THERAPEUTIC EXERCISES AND ESTABLISHING A HOME EXERCISE PROGRAM (PT/COMMUNITY MARKETING COORDINATOR) PT/COMMUNITY MARKETING COORDINATOR TO PROVIDE STAIR TRAINING PT / COMMUNITY MARKETING COORDINATOR TO MONITOR AND EDUCATE ON OXYGEN SATURATION DURING ADLS/IADLS, NOTIFY PHYSICIAN AND/OR THE RN CLINICAL SPEED RUNNER FOR PHYSICIAN NOTIFICATION AND IF O2 SATS BELOW PHYSICIAN ORDERED PARAMETERS AFTER 10 MIN OF REST PT / COMMUNITY MARKETING COORDINATOR TO OBSERVE FOR EARLY SIGNS AND SYMPTOMS OF DEPRESSION OR DEPRESSION GETTING WORSE AND TO EDUCATE ON HOW TO FIND HELP. PT / COMMUNITY MARKETING COORDINATOR MAY EDUCATE ON PAIN MANAGEMENT CLINICALLY INDICATED, INCLUDING NON-PHARMACOLOGICAL PAIN REDUCTION TECHNIQUES PT / COMMUNITY MARKETING COORDINATOR TO MONITOR FOR HYPO/HYPERGLYCEMIA AND CONDUCT ROUTINE FOOT INSPECTIONS. RECORD PATIENT REPORTED BLOOD SUGAR LEVELS AND NOTIFY PHYSICIAN AND/OR THE RN CLINICAL SPEED RUNNER FOR PHYSICIAN NOTIFICATION IF BLOOD SUGAR LEVELS ARE OUTSIDE ORDERED PARAMETERS. TEACH PATIENT/CAREGIVER ON DAILY FOOT INSPECTIONS PT / COMMUNITY MARKETING COORDINATOR TO INSTRUCT PATIENT/CAREGIVER ON RISK FOR HOSPITALIZATION/EMERGENCY ROOM VISITS, TEACH SIGNS AND SYMPTOMS THAT PUT PATIENT AT RISK, WHEN TO NOTIFY NURSE/PHYSICIAN OF COMPLICATIONS/DECLINE, AND WHEN TO CALL 911. PT/COMMUNITY MARKETING COORDINATOR TO EDUCATE ON ARTHRITIS SELF-MANAGEMENT PT / COMMUNITY MARKETING COORDINATOR TO EDUCATE ON HEART FAILURE SELF-MANAGEMENT PT / COMMUNITY MARKETING COORDINATOR TO EDUCATE ON HYPERTENSION SELF-MANAGEMENT PT TO ASSESS / COMMUNITY MARKETING COORDINATOR TO MONITOR CARDIO/RESPIRATORY SYSTEM; AND NOTIFY THE PHYSICIAN AND/OR THE RN CLINICAL SPEED RUNNER FOR PHYSICIAN NOTIFICATION FOR EARLY SIGNS AND SYMPTOMS OF EXACERBATION OR DETERIORATION. PT / COMMUNITY MARKETING COORDINATOR TO EDUCATE ON ATRIAL FIBRILLATION SELF-MANAGEMENT. PT / COMMUNITY MARKETING COORDINATOR TO EDUCATE ON PNEUMONIA / ASPIRATION PNEUMONIA SELF-MANAGEMENT. PT/COMMUNITY MARKETING COORDINATOR TO IDENTIFY FALL RISK FACTORS; EDUCATE THE PATIENT/CAREGIVER ON WAYS TO REDUCE FALL RISK FACTORS AND ESTABLISH HOME EXERCISE PROGRAM TO MINIMIZE FALL RISK. MAY TEACH THE PATIENT FLOOR RECOVERY WHEN CLINICALLY APPROPRIATE [code = PT TO EVALUATE, OBSERVE / ASSESS, AND MONITOR, COMMUNITY MARKETING COORDINATOR TO OBSERVE AND MONITOR, PROVIDE SKILLED THERAPEUTIC INTERVENTION, ACTIVITY, EDUCATION, AND TRAINING TO ADDRESS GEN. WEAKNESS, POOR OVERALL ACTIVITY TOLERANCE, AND FUNCTIONAL LIMITATIONS IMPACTING SAFETY AND INDEPENDENCE. BED MOBILITY (PT/COMMUNITY MARKETING COORDINATOR) PT/COMMUNITY MARKETING COORDINATOR TO PROVIDE GAIT TRAINING FOR IMPROVED MOBILITY AND /OR TO NORMALIZE GAIT PATTERN THERAPEUTIC EXERCISES AND ESTABLISHING A HOME EXERCISE PROGRAM (PT/COMMUNITY MARKETING COORDINATOR) PT/COMMUNITY MARKETING COORDINATOR TO PROVIDE STAIR TRAINING PT / COMMUNITY MARKETING COORDINATOR TO MONITOR AND EDUCATE ON OXYGEN SATURATION DURING ADLS/IADLS, NOTIFY PHYSICIAN AND/OR THE RN CLINICAL SPEED RUNNER FOR PHYSICIAN NOTIFICATION AND IF O2 SATS BELOW PHYSICIAN ORDERED PARAMETERS AFTER 10 MIN OF REST PT / COMMUNITY MARKETING COORDINATOR TO OBSERVE FOR EARLY SIGNS AND SYMPTOMS OF DEPRESSION OR DEPRESSION GETTING WORSE AND TO EDUCATE ON HOW TO FIND HELP. PT / COMMUNITY MARKETING COORDINATOR MAY EDUCATE ON PAIN MANAGEMENT CLINICALLY INDICATED, INCLUDING NON-PHARMACOLOGICAL PAIN REDUCTION TECHNIQUES PT / COMMUNITY MARKETING COORDINATOR TO MONITOR FOR HYPO/HYPERGLYCEMIA AND CONDUCT ROUTINE FOOT INSPECTIONS. RECORD PATIENT REPORTED BLOOD SUGAR LEVELS AND NOTIFY PHYSICIAN AND/OR THE RN CLINICAL SPEED RUNNER FOR PHYSICIAN NOTIFICATION IF BLOOD SUGAR LEVELS ARE OUTSIDE ORDERED PARAMETERS. TEACH PATIENT/CAREGIVER ON DAILY FOOT INSPECTIONS PT / COMMUNITY MARKETING COORDINATOR TO INSTRUCT PATIENT/CAREGIVER ON RISK FOR HOSPITALIZATION/EMERGENCY ROOM VISITS, TEACH SIGNS AND SYMPTOMS THAT PUT PATIENT AT RISK, WHEN TO NOTIFY NURSE/PHYSICIAN OF COMPLICATIONS/DECLINE, AND WHEN TO CALL 911. PT/COMMUNITY MARKETING COORDINATOR TO EDUCATE ON ARTHRITIS SELF-MANAGEMENT PT / COMMUNITY MARKETING COORDINATOR TO EDUCATE ON HEART FAILURE SELF-MANAGEMENT PT / COMMUNITY MARKETING COORDINATOR TO EDUCATE ON HYPERTENSION SELF-MANAGEMENT PT TO ASSESS / COMMUNITY MARKETING COORDINATOR TO MONITOR CARDIO/RESPIRATORY SYSTEM; AND NOTIFY THE PHYSICIAN AND/OR THE RN CLINICAL SPEED RUNNER FOR PHYSICIAN NOTIFICATION FOR EARLY SIGNS AND SYMPTOMS OF EXACERBATION OR DETERIORATION. PT / COMMUNITY MARKETING COORDINATOR TO EDUCATE ON ATRIAL FIBRILLATION SELF-MANAGEMENT. PT / COMMUNITY MARKETING COORDINATOR TO EDUCATE ON PNEUMONIA / ASPIRATION PNEUMONIA SELF-MANAGEMENT. PT/COMMUNITY MARKETING COORDINATOR TO IDENTIFY FALL RISK FACTORS; EDUCATE THE PATIENT/CAREGIVER ON WAYS TO REDUCE FALL RISK FACTORS AND ESTABLISH HOME EXERCISE PROGRAM TO MINIMIZE FALL RISK. MAY TEACH THE PATIENT FLOOR RECOVERY WHEN CLINICALLY APPROPRIATE] Future Scheduled Test AGENCY MAY PERFORM A RESUMPTION OF CARE VISIT FOLLOWING ANY HOSPITAL ADMISSION. OT TO EVALUATE, OBSERVE / ASSESS, AND MONITOR, PERSONNEL RESEARCH PSYCHOLOGIST TO OBSERVE AND MONITOR, PROVIDE SKILLED THERAPEUTIC INTERVENTION, ACTIVITY, EDUCATION, AND TRAINING TO ADDRESS SAFETY AND INDEPENDENCE OF ADLS AND FUNCTIONAL TRANSFERS IN HOME ENVIRONMENT. ACTIVITIES OF DAILY LIVING (OT/MARIANNE) THERAPEUTIC EXERCISE (OT/PERSONNEL RESEARCH PSYCHOLOGIST) ENERGY CONSERVATION/ACTIVITY DEMAND (OT/PERSONNEL RESEARCH PSYCHOLOGIST) OT/PERSONNEL RESEARCH PSYCHOLOGIST TO MONITOR AND EDUCATE ON OXYGEN SATURATION DURING ADLS/IADLS, NOTIFY PHYSICIAN AND/OR THE RN CLINICAL SPEED RUNNER FOR PHYSICIAN NOTIFICATION AND IF O2 SATS BELOW 90% AFTER 10 MIN OF REST. OT / PERSONNEL RESEARCH PSYCHOLOGIST TO IDENTIFY FALL RISK FACTORS; EDUCATE THE PATIENT/CAREGIVER ON WAYS TO REDUCE FALL RISK FACTORS AND ESTABLISH HOME EXERCISE PROGRAM TO MINIMIZE FALL RISK. MAY TEACH THE PATIENT FLOOR RECOVERY WHEN CLINICALLY APPROPRIATE. OT/PERSONNEL RESEARCH PSYCHOLOGIST TO EDUCATE ON HYPERTENSION SELF-MANAGEMENT OT/MARIANNE TO EDUCATE ON ATRIAL FIBRILLATION SELF-MANAGEMENT. [code = AGENCY MAY PERFORM A RESUMPTION OF CARE VISIT FOLLOWING ANY HOSPITAL ADMISSION. OT TO EVALUATE, OBSERVE / ASSESS, AND MONITOR, PERSONNEL RESEARCH PSYCHOLOGIST TO OBSERVE AND MONITOR, PROVIDE SKILLED THERAPEUTIC INTERVENTION, ACTIVITY, EDUCATION, AND TRAINING TO ADDRESS SAFETY AND INDEPENDENCE OF ADLS AND FUNCTIONAL TRANSFERS IN HOME ENVIRONMENT. ACTIVITIES OF DAILY LIVING (OT/MARIANNE) THERAPEUTIC EXERCISE (OT/PERSONNEL RESEARCH PSYCHOLOGIST) ENERGY CONSERVATION/ACTIVITY DEMAND (OT/MARIANNE) OT/PERSONNEL RESEARCH PSYCHOLOGIST TO MONITOR AND EDUCATE ON OXYGEN SATURATION DURING ADLS/IADLS, NOTIFY PHYSICIAN AND/OR THE RN CLINICAL SPEED RUNNER FOR PHYSICIAN NOTIFICATION AND IF O2 SATS BELOW 90% AFTER 10 MIN OF REST. OT / MARIANNE TO IDENTIFY FALL RISK FACTORS; EDUCATE THE PATIENT/CAREGIVER ON WAYS TO REDUCE FALL RISK FACTORS AND ESTABLISH HOME EXERCISE PROGRAM TO MINIMIZE FALL RISK. MAY TEACH THE PATIENT FLOOR RECOVERY WHEN CLINICALLY APPROPRIATE. OT/PERSONNEL RESEARCH PSYCHOLOGIST TO EDUCATE ON HYPERTENSION SELF-MANAGEMENT OT/MARIANNE TO [...] BY IMPROVED MACK, AMB. DISTANCE, AND ADEQUATE NIGA USING A ROLLATOR, MOD INDEP, IN ORDER [...] End Date/Time Encounter Type Admission Type Attending [facility] Care Department Encounter ID Discharge Date Discharge Status Discharge Condition Discharge Reason Percent Goals Met 2025-02-07 00:00:00 2025-04-07 00:00:00 Outpatient NEW ADMISSION [facility] [id number]
--- OUTSIDE RECORDS SUMMARY | 2025-04-06 18:00 | XMS_ITS | Clinical Summary ---
Author Organization Unknown Care Team Providers Care Grounds Maintenance Worker Name Role Phone DIGNA ARIEL, ESTRELLA Unavailable Unava dinora STOKES RN, FRANKIE Unavailable Unavailabl e KARI PT, DIDI Unavailable Unavailable NAT CHIEF PORT DIRECTOR, GAUDENCIO Unavailable Unavailabl e RADHA OT, ROLANDO Unavailable Unavailable JOANNE STEVEN, HATTIE Unavailable Unavailable Payers Payer Name Policy Type Policy Number Effective Date Expira tion Date MEDICARE.[facility] [id number] Problems Condition Name Condition Details Condition Category Status Onset Date Resolution Date Last Treatment Date Treating Clinician Comments 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 02-07 [...] OF PNEUMONIA (RECURRENT) Active 02-07 00:00: 00 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 (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) USE OF SYSTEMIC STEROIDS Active 02-07 [...] 80 mg tablet 02-07 00:00: 00 Yes [id number] CHOLESTEROL 1 tablet DAILY 1 tablet DAILY (route: oral) Med Classific ation: Cardiovas cular Therapy Agents digoxin 125 mcg (0.125 mg) tablet 02-07 00:00: 00 02-21 23:59 :00 No [id number] HEART RHYTHM 1 tablet DAILY 1 tablet DAILY (route: oral) Med Classific ation: Cardiovas cular Therapy Agents escitalopra m 10 mg tablet 02-07 00:00: 00 Yes [id number] MOOD 1 tablet DAILY 1 tablet DAILY (route: oral) Med Classific ation: Central Nervous System Agents ezetimibe 10 mg tablet 02-07 00:00: 00 Yes [id number] CHOLESTEROL 1 tablet DAILY 1 tablet DAILY (route: oral) Med Classific ation: Cardiovas cular Therapy Agents metoprolol succinate ER 25 mg tablet,exte nded release 24 hr 02-07 00:00: 00 02-21 23:59 :00 No [id number] BLOOD PRESSURE 0.5 tablet DAILY 0.5 tablet DAILY (route: oral) Med Classific ation: Cardiovas cular Therapy Agents pantoprazol e 40 mg tablet,joão yed release 02-07 00:00: 00 02-21 23:59 :00 No [id number] STOMACH ACID 1 tablet DAILY 1 tablet DAILY (route: oral) Med Classific ation: Gastroint estinal Therapy Agents prednisone 5 mg tablet 02-07 00:00: 00 Yes [id number] ADRENAL INSUFFICIEN CY 1 tablet DAILY 1 tablet DAILY (route: oral) Med Classific ation: Endocrine spironolact one 25 mg tablet 02-07 00:00: 00 Yes [id number] FLUID RETENTION 0.5 tablet DAILY 0.5 tablet DAILY (route: oral) Med Classific ation: Cardiovas cular Therapy Agents tamsulosin 0.4 mg capsule 02-07 00:00: 00 02-21 23:59 :00 No [id number] URINARY HEALTH 1 capsule DAILY 1 capsule DAILY (route: oral) Med Classific ation: Genitouri nary Therapy acetaminoph en 325 mg tablet 2024-05 00:00: 00 Yes [id number] PAIN 2 tablet 2 TIMES DAILY 2 tablet 2 TIMES DAILY (route: oral) Med Classific ation: Analgesic , Anti-infl ammatory or Antipyret ic aspirin 81 mg tablet 2024-05 00:00: 00 Yes [id number] ANTICOAGULA NT 1 tablet DAILY 1 tablet DAILY (route: oral) Med Classific ation: Hematolog ical Agents ipratropium 0.5 mg-albutero l 3 mg (2.5 mg base)/3 mL nebulizatio n soln 2024-05 00:00: 00 Yes [id number] COPD 3 mL EVERY 6 HOURS 3 mL EVERY 6 HOURS (route: inhalation ) Med Classific ation: Respirato ry Therapy Agents Lanoxin 62.5 mcg (0.0625 mg) tablet 2024-05 00:00: 00 Yes [id number] CHF 1 tablet DAILY 1 tablet DAILY (route: oral) Med Classific ation: Cardiovas cular Therapy Agents Lasix 20 mg tablet 2024-05 00:00: 00 Yes [id number] CHF 1 tablet DAILY 1 tablet DAILY (route: oral) Med Classific ation: Cardiovas cular Therapy Agents Toprol XL 25 mg tablet,exte nded release 2024-05 00:00: 00 Yes [id number] BP 25 mg DAILY 25 mg DAILY [...] SYSTEM MANAGEMENT; RN TO ASSESS AND TEACH, FITNESS PROFESSIONAL/SUPERVISOR PAPER PRODUCTS TO OBSERVE AND TEACH RELATED TO ALTERED RESPIRATORY STATUS TO MINIMIZE COMPLICATIONS AND REDUCE HOSPITALIZATION. [code = SN 1WK9 PT 1WK1 OT EFFECTIVE 02/10/2025K1 RESPIRATORY SYSTEM MANAGEMENT; RN TO ASSESS AND TEACH, FITNESS PROFESSIONAL/SUPERVISOR PAPER PRODUCTS TO OBSERVE AND TEACH RELATED TO ALTERED RESPIRATORY STATUS TO MINIMIZE COMPLICATIONS AND REDUCE HOSPITALIZATION.] Future Scheduled Test TRACHEOSTO MY CARE MANAGEMENT; RN/FITNESS PROFESSIONAL/SUPERVISOR PAPER PRODUCTS TO INSTRUCT PATIENT/CAREGIVER ON CARE AND MANAGEMENT OF TRACHEOSTOMY. RN/ FITNESS PROFESSIONAL/SUPERVISOR PAPER PRODUCTS TO PROVIDE SKILLED TEACHING ON TRACH COLLAR SUCTIONING PRN WITH 14 FR SUCTION CATHETER PER PATIENT TRACH CARE WITH INNER CANNULA: REMOVE INNER CANNULA, CLEANSE WITH NORMAL SALINE AND OR STERILE WATER AND REINSERT NON-DISPOSABLE CANNULA SIZE OF INNER CANNULA 5 BROOKS [code = TRACHEOSTOMY CARE MANAGEMENT; RN/FITNESS PROFESSIONAL/SUPERVISOR PAPER PRODUCTS TO INSTRUCT PATIENT/CAREGIVER ON CARE AND MANAGEMENT OF TRACHEOSTOMY. RN/ FITNESS PROFESSIONAL/SUPERVISOR PAPER PRODUCTS TO PROVIDE SKILLED TEACHING ON TRACH COLLAR SUCTIONING PRN WITH 14 FR SUCTION CATHETER PER PATIENT TRACH CARE WITH INNER CANNULA: REMOVE INNER CANNULA, CLEANSE WITH NORMAL SALINE AND OR STERILE WATER AND REINSERT NON-DISPOSABLE CANNULA SIZE OF INNER CANNULA 5 BROOKS] Future Scheduled Test FALL REDUC TION MANAGEMENT; RN TO ASSESS AND OBSERVE, FITNESS PROFESSIONAL/SUPERVISOR PAPER PRODUCTS TO OBSERVE FALL RISK FACTORS AND EDUCATE PATIENT/CAREGIVER ON STRATEGIES TO MINIMIZE THE RISK OF FALLING. [code = FALL REDUCTION MANAGEMENT; RN TO ASSESS AND OBSERVE, FITNESS PROFESSIONAL/SUPERVISOR PAPER PRODUCTS TO OBSERVE FALL RISK FACTORS AND EDUCATE PATIENT/CAREGIVER ON STRATEGIES TO MINIMIZE THE RISK OF FALLING.] Future Scheduled Test ANEMIA MAN AGEMENT; RN TO ASSESS AND TEACH, SUPERVISOR PAPER PRODUCTS/FITNESS PROFESSIONAL TO OBSERVE AND TEACH AND PROVIDE EDUCATION ON ANEMIA. [code = ANEMIA MANAGEMENT; RN TO ASSESS AND TEACH, SUPERVISOR PAPER PRODUCTS/FITNESS PROFESSIONAL TO OBSERVE AND TEACH AND PROVIDE EDUCATION ON ANEMIA.] Future Scheduled Test RN TO OBSE RVE, ASSESS, EVALUATE, AND DEVELOP AN INDIVIDUALIZED PLAN OF CARE. AGENCY MAY ACCEPT ORDERS FROM CONSULTING PHYSICIANS RN TO OBSERVE AND ASSESS, FITNESS PROFESSIONAL/SUPERVISOR PAPER PRODUCTS TO OBSERVE FOR RISK FOR FALLS AND INSTRUCT IN FALL PREVENTION, HOME SAFETY, MEDICATION MANAGEMENT, INFECTION PREVENTION, AND NUTRITION MANAGEMENT. RN/FITNESS PROFESSIONAL/SUPERVISOR PAPER PRODUCTS NURSE MAY PERFORM O2 SATURATION LEVEL ON ADMISSION AND PRN FOR RN TO ASSESS/FITNESS PROFESSIONAL TO OBSERVE PATIENT, WITH NOTIFICATION TO THE PHYSICIAN IF SATURATION IS 90% IN THE ABSENCE OF MORE SPECIFIC PARAMETERS FROM THE PHYSICIAN. AGENCY MAY PERFORM A RESUMPTION OF CARE VISIT FOLLOWING ANY HOSPITAL ADMISSION. RN/FITNESS PROFESSIONAL/SUPERVISOR PAPER PRODUCTS TO MONITOR CO-MORBID CONDITIONS LISTED ON THE PLAN OF CARE AND ANY NEW CONDITIONS THAT PRESENT THEMSELVES DURING THIS EPISODE TO IDENTIFY CHANGES AND INTERVENE TO MINIMIZE COMPLICATIONS. [code = RN TO OBSERVE, ASSESS, EVALUATE, AND DEVELOP AN INDIVIDUALIZED PLAN OF CARE. AGENCY MAY ACCEPT ORDERS FROM CONSULTING PHYSICIANS RN TO OBSERVE AND ASSESS, FITNESS PROFESSIONAL/SUPERVISOR PAPER PRODUCTS TO OBSERVE FOR RISK FOR FALLS AND INSTRUCT IN FALL PREVENTION, HOME SAFETY, MEDICATION MANAGEMENT, INFECTION PREVENTION, AND NUTRITION MANAGEMENT. RN/FITNESS PROFESSIONAL/SUPERVISOR PAPER PRODUCTS NURSE MAY PERFORM O2 SATURATION LEVEL ON ADMISSION AND PRN FOR RN TO ASSESS/FITNESS PROFESSIONAL TO OBSERVE PATIENT, WITH NOTIFICATION TO THE PHYSICIAN IF SATURATION IS 90% IN THE ABSENCE OF MORE SPECIFIC PARAMETERS FROM THE PHYSICIAN. AGENCY MAY PERFORM A RESUMPTION OF CARE VISIT FOLLOWING ANY HOSPITAL ADMISSION. RN/FITNESS PROFESSIONAL/SUPERVISOR PAPER PRODUCTS TO MONITOR CO-MORBID CONDITIONS LISTED ON THE PLAN OF CARE AND ANY NEW CONDITIONS THAT PRESENT THEMSELVES DURING THIS EPISODE TO IDENTIFY CHANGES AND INTERVENE TO MINIMIZE COMPLICATIONS.] Future Scheduled Test PAIN MANAG EMENT; RN TO ASSESS AND TEACH, SUPERVISOR PAPER PRODUCTS/FITNESS PROFESSIONAL TO OBSERVE AND TEACH AND PROVIDE EDUCATION ON PAIN MANAGEMENT TECHNIQUES. [code = PAIN MANAGEMENT; RN TO ASSESS AND TEACH, SUPERVISOR PAPER PRODUCTS/FITNESS PROFESSIONAL TO OBSERVE AND TEACH AND PROVIDE EDUCATION ON PAIN MANAGEMENT TECHNIQUES.] Future Scheduled Test RISK FOR H OSPITALIZATION; RN TO ASSESS/TEACH, SUPERVISOR PAPER PRODUCTS/FITNESS PROFESSIONAL TO OBSERVE/TEACH PATIENT/CAREGIVER ON RISK FOR HOSPITALIZATION/EMERGENCY ROOM VISITS, TEACH SIGNS AND SYMPTOMS THAT PUT PATIENT AT RISK, WHEN TO NOTIFY NURSE/PHYSICIAN OF COMPLICATIONS/DECLINE, AND WHEN TO CALL 911. [code = RISK FOR HOSPITALIZATION; RN TO ASSESS/TEACH, SUPERVISOR PAPER PRODUCTS/FITNESS PROFESSIONAL TO OBSERVE/TEACH PATIENT/CAREGIVER ON RISK FOR HOSPITALIZATION/EMERGENCY ROOM VISITS, TEACH SIGNS AND SYMPTOMS THAT PUT PATIENT AT RISK, WHEN TO NOTIFY NURSE/PHYSICIAN OF COMPLICATIONS/DECLINE, AND WHEN TO CALL 911.] Future Scheduled Test CARDIOVASC ULAR SYSTEM; RN TO ASSESS/TEACH, FITNESS PROFESSIONAL/SUPERVISOR PAPER PRODUCTS TO OBSERVE/TEACH RELATED TO ALTERED CARDIOVASCULAR STATUS TO MINIMIZE COMPLICATIONS AND REDUCE HOSPITALIZATION. [code = CARDIOVASCULAR SYSTEM; RN TO ASSESS/TEACH, FITNESS PROFESSIONAL/SUPERVISOR PAPER PRODUCTS TO OBSERVE/TEACH RELATED TO ALTERED CARDIOVASCULAR STATUS TO MINIMIZE COMPLICATIONS AND REDUCE HOSPITALIZATION.] Future Scheduled Test HYPERTENSI ON MANAGEMENT; RN TO ASSESS AND TEACH, FITNESS PROFESSIONAL/SUPERVISOR PAPER PRODUCTS TO OBSERVE AND TEACH WARNING SIGNS AND SYMPTOMS TO AVOID HOSPITALIZATION. [code = HYPERTENSION MANAGEMENT; RN TO ASSESS AND TEACH, FITNESS PROFESSIONAL/SUPERVISOR PAPER PRODUCTS TO OBSERVE AND TEACH WARNING SIGNS AND SYMPTOMS TO AVOID HOSPITALIZATION.] Future Scheduled Test HEART FAIL URE MONITORING RN/SUPERVISOR PAPER PRODUCTS/FITNESS PROFESSIONAL TO MONITOR PATIENT FOR SIGNS AND SYMPTOMS OF HEART FAILURE EXACERBATION, MONITOR FOR ADHERENCE WITH MEDICATION AND HEART FAILURE MANAGEMENT REGIMEN. [code = HEART FAILURE MONITORING RN/SUPERVISOR PAPER PRODUCTS/FITNESS PROFESSIONAL TO MONITOR PATIENT FOR SIGNS AND SYMPTOMS OF HEART FAILURE EXACERBATION, MONITOR FOR ADHERENCE WITH MEDICATION AND HEART FAILURE MANAGEMENT REGIMEN.] Future Scheduled Test DIABETES M ONITORING RN/SUPERVISOR PAPER PRODUCTS/FITNESS PROFESSIONAL TO MONITOR BLOOD SUGAR LOG FOR BLOOD SUGAR READINGS THAT ARE BEING CHECKED BY PATIENT, CAREGIVER NEEDED FOR SIGNS AND SYMPTOMS OF HYPER/HYPOGLYCEMIA. PATIENT THERAPEUTIC BLOOD SUGAR PARAMETERS ARE 70 - 300. REPORT BLOOD SUGARS OUT OF RANGE TO PHYSICIAN. NURSE MAY PERFORM FINGER STICK BLOOD GLUCOSE NEEDED FOR SIGNS AND SYMPTOMS OF HYPO AND HYPERGLYCEMIA. RN/SUPERVISOR PAPER PRODUCTS/FITNESS PROFESSIONAL TO MONITOR ADHERENCE OF PATIENT/CAREGIVER PERFORMING DIABETIC FOOT CARE AND MAY PERFORM DIABETIC FOOT CARE PRN. RN/SUPERVISOR PAPER PRODUCTS/FITNESS PROFESSIONAL TO MONITOR FOR ADHERENCE TO DIABETIC SELF-CARE AND MANAGEMENT INCLUDING MEDICATIONS. [code = DIABETES MONITORING RN/SUPERVISOR PAPER PRODUCTS/FITNESS PROFESSIONAL TO MONITOR BLOOD SUGAR LOG FOR BLOOD SUGAR READINGS THAT ARE BEING CHECKED BY PATIENT, CAREGIVER NEEDED FOR SIGNS AND SYMPTOMS OF HYPER/HYPOGLYCEMIA. PATIENT THERAPEUTIC BLOOD SUGAR PARAMETERS ARE 70 - 300. REPORT BLOOD SUGARS OUT OF RANGE TO PHYSICIAN. NURSE MAY PERFORM FINGER STICK BLOOD GLUCOSE NEEDED FOR SIGNS AND SYMPTOMS OF HYPO AND HYPERGLYCEMIA. RN/SUPERVISOR PAPER PRODUCTS/FITNESS PROFESSIONAL TO MONITOR ADHERENCE OF PATIENT/CAREGIVER PERFORMING DIABETIC FOOT CARE AND MAY PERFORM DIABETIC FOOT CARE PRN. RN/SUPERVISOR PAPER PRODUCTS/FITNESS PROFESSIONAL TO MONITOR FOR ADHERENCE TO DIABETIC SELF-CARE AND MANAGEMENT INCLUDING MEDICATIONS.] Future Scheduled Test HYPOTENSIO N MANAGEMENT; RN TO ASSESS AND TEACH/ FITNESS PROFESSIONAL /SUPERVISOR PAPER PRODUCTS TO OBSERVE AND TEACH WARNING SIGNS AND SYMPTOMS TO AVOID HOSPITALIZATION. [code = HYPOTENSION MANAGEMENT; RN TO ASSESS AND TEACH/ FITNESS PROFESSIONAL /SUPERVISOR PAPER PRODUCTS TO OBSERVE AND TEACH WARNING SIGNS AND SYMPTOMS TO AVOID HOSPITALIZATION.] Future Scheduled Test ARRHYTHMIA MANAGEMENT; RN TO ASSESS AND TEACH, FITNESS PROFESSIONAL/SUPERVISOR PAPER PRODUCTS TO OBSERVE AND TEACH WARNING SIGNS AND SYMPTOMS TO AVOID HOSPITALIZATION. [code = ARRHYTHMIA MANAGEMENT; RN TO ASSESS AND TEACH, FITNESS PROFESSIONAL/SUPERVISOR PAPER PRODUCTS TO OBSERVE AND TEACH WARNING SIGNS AND SYMPTOMS TO AVOID HOSPITALIZATION.] Future Scheduled Test MEDICATION MANAGEMENT; RN/FITNESS PROFESSIONAL/SUPERVISOR PAPER PRODUCTS TO REVIEW MEDICATIONS FOR INTERACTIONS, EFFECTIVENESS OF DRUG THERAPY, AND SIGNS/SYMPTOMS OF ADVERSE REACTIONS. MAY INSTRUCT AND REINFORCE MEDICATION TEACHING RELATED TO THE USE OF MEDICATIONS, DOSAGE, FREQUENCY, PURPOSE, SIDE EFFECTS, AND TO REPORT COMPLICATIONS. [code = MEDICATION MANAGEMENT; RN/FITNESS PROFESSIONAL/SUPERVISOR PAPER PRODUCTS TO REVIEW MEDICATIONS FOR INTERACTIONS, EFFECTIVENESS OF [...] EVAL UATE, OBSERVE / ASSESS, AND MONITOR, CHIEF PORT DIRECTOR TO OBSERVE AND MONITOR, PROVIDE SKILLED THERAPEUTIC INTERVENTION, ACTIVITY, EDUCATION, AND TRAINING TO ADDRESS GEN. WEAKNESS, POOR OVERALL ACTIVITY TOLERANCE, AND FUNCTIONAL LIMITATIONS IMPACTING SAFETY AND INDEPENDENCE. BED MOBILITY (PT/CHIEF PORT DIRECTOR) PT/CHIEF PORT DIRECTOR TO PROVIDE GAIT TRAINING FOR IMPROVED MOBILITY AND /OR TO NORMALIZE GAIT PATTERN THERAPEUTIC EXERCISES AND ESTABLISHING A HOME EXERCISE PROGRAM (PT/CHIEF PORT DIRECTOR) PT/CHIEF PORT DIRECTOR TO PROVIDE STAIR TRAINING PT / CHIEF PORT DIRECTOR TO MONITOR AND EDUCATE ON OXYGEN SATURATION DURING ADLS/IADLS, NOTIFY PHYSICIAN AND/OR THE RN CLINICAL DIRECTOR PRESALES FOR PHYSICIAN NOTIFICATION AND IF O2 SATS BELOW PHYSICIAN ORDERED PARAMETERS AFTER 10 MIN OF REST PT / CHIEF PORT DIRECTOR TO OBSERVE FOR EARLY SIGNS AND SYMPTOMS OF DEPRESSION OR DEPRESSION GETTING WORSE AND TO EDUCATE ON HOW TO FIND HELP. PT / CHIEF PORT DIRECTOR MAY EDUCATE ON PAIN MANAGEMENT CLINICALLY INDICATED, INCLUDING NON-PHARMACOLOGICAL PAIN REDUCTION TECHNIQUES PT / CHIEF PORT DIRECTOR TO MONITOR FOR HYPO/HYPERGLYCEMIA AND CONDUCT ROUTINE FOOT INSPECTIONS. RECORD PATIENT REPORTED BLOOD SUGAR LEVELS AND NOTIFY PHYSICIAN AND/OR THE RN CLINICAL DIRECTOR PRESALES FOR PHYSICIAN NOTIFICATION IF BLOOD SUGAR LEVELS ARE OUTSIDE ORDERED PARAMETERS. TEACH PATIENT/CAREGIVER ON DAILY FOOT INSPECTIONS PT / CHIEF PORT DIRECTOR TO INSTRUCT PATIENT/CAREGIVER ON RISK FOR HOSPITALIZATION/EMERGENCY ROOM VISITS, TEACH SIGNS AND SYMPTOMS THAT PUT PATIENT AT RISK, WHEN TO NOTIFY NURSE/PHYSICIAN OF COMPLICATIONS/DECLINE, AND WHEN TO CALL 911. PT/CHIEF PORT DIRECTOR TO EDUCATE ON ARTHRITIS SELF-MANAGEMENT PT / CHIEF PORT DIRECTOR TO EDUCATE ON HEART FAILURE SELF-MANAGEMENT PT / CHIEF PORT DIRECTOR TO EDUCATE ON HYPERTENSION SELF-MANAGEMENT PT TO ASSESS / CHIEF PORT DIRECTOR TO MONITOR CARDIO/RESPIRATORY SYSTEM; AND NOTIFY THE PHYSICIAN AND/OR THE RN CLINICAL DIRECTOR PRESALES FOR PHYSICIAN NOTIFICATION FOR EARLY SIGNS AND SYMPTOMS OF EXACERBATION OR DETERIORATION. PT / CHIEF PORT DIRECTOR TO EDUCATE ON ATRIAL FIBRILLATION SELF-MANAGEMENT. PT / CHIEF PORT DIRECTOR TO EDUCATE ON PNEUMONIA / ASPIRATION PNEUMONIA SELF-MANAGEMENT. PT/CHIEF PORT DIRECTOR TO IDENTIFY FALL RISK FACTORS; EDUCATE THE PATIENT/CAREGIVER ON WAYS TO REDUCE FALL RISK FACTORS AND ESTABLISH HOME EXERCISE PROGRAM TO MINIMIZE FALL RISK. MAY TEACH THE PATIENT FLOOR RECOVERY WHEN CLINICALLY APPROPRIATE [code = PT TO EVALUATE, OBSERVE / ASSESS, AND MONITOR, CHIEF PORT DIRECTOR TO OBSERVE AND MONITOR, PROVIDE SKILLED THERAPEUTIC INTERVENTION, ACTIVITY, EDUCATION, AND TRAINING TO ADDRESS GEN. WEAKNESS, POOR OVERALL ACTIVITY TOLERANCE, AND FUNCTIONAL LIMITATIONS IMPACTING SAFETY AND INDEPENDENCE. BED MOBILITY (PT/CHIEF PORT DIRECTOR) PT/CHIEF PORT DIRECTOR TO PROVIDE GAIT TRAINING FOR IMPROVED MOBILITY AND /OR TO NORMALIZE GAIT PATTERN THERAPEUTIC EXERCISES AND ESTABLISHING A HOME EXERCISE PROGRAM (PT/CHIEF PORT DIRECTOR) PT/CHIEF PORT DIRECTOR TO PROVIDE STAIR TRAINING PT / CHIEF PORT DIRECTOR TO MONITOR AND EDUCATE ON OXYGEN SATURATION DURING ADLS/IADLS, NOTIFY PHYSICIAN AND/OR THE RN CLINICAL DIRECTOR PRESALES FOR PHYSICIAN NOTIFICATION AND IF O2 SATS BELOW PHYSICIAN ORDERED PARAMETERS AFTER 10 MIN OF REST PT / CHIEF PORT DIRECTOR TO OBSERVE FOR EARLY SIGNS AND SYMPTOMS OF DEPRESSION OR DEPRESSION GETTING WORSE AND TO EDUCATE ON HOW TO FIND HELP. PT / CHIEF PORT DIRECTOR MAY EDUCATE ON PAIN MANAGEMENT CLINICALLY INDICATED, INCLUDING NON-PHARMACOLOGICAL PAIN REDUCTION TECHNIQUES PT / CHIEF PORT DIRECTOR TO MONITOR FOR HYPO/HYPERGLYCEMIA AND CONDUCT ROUTINE FOOT INSPECTIONS. RECORD PATIENT REPORTED BLOOD SUGAR LEVELS AND NOTIFY PHYSICIAN AND/OR THE RN CLINICAL DIRECTOR PRESALES FOR PHYSICIAN NOTIFICATION IF BLOOD SUGAR LEVELS ARE OUTSIDE ORDERED PARAMETERS. TEACH PATIENT/CAREGIVER ON DAILY FOOT INSPECTIONS PT / CHIEF PORT DIRECTOR TO INSTRUCT PATIENT/CAREGIVER ON RISK FOR HOSPITALIZATION/EMERGENCY ROOM VISITS, TEACH SIGNS AND SYMPTOMS THAT PUT PATIENT AT RISK, WHEN TO NOTIFY NURSE/PHYSICIAN OF COMPLICATIONS/DECLINE, AND WHEN TO CALL 911. PT/CHIEF PORT DIRECTOR TO EDUCATE ON ARTHRITIS SELF-MANAGEMENT PT / CHIEF PORT DIRECTOR TO EDUCATE ON HEART FAILURE SELF-MANAGEMENT PT / CHIEF PORT DIRECTOR TO EDUCATE ON HYPERTENSION SELF-MANAGEMENT PT TO ASSESS / CHIEF PORT DIRECTOR TO MONITOR CARDIO/RESPIRATORY SYSTEM; AND NOTIFY THE PHYSICIAN AND/OR THE RN CLINICAL DIRECTOR PRESALES FOR PHYSICIAN NOTIFICATION FOR EARLY SIGNS AND SYMPTOMS OF EXACERBATION OR DETERIORATION. PT / CHIEF PORT DIRECTOR TO EDUCATE ON ATRIAL FIBRILLATION SELF-MANAGEMENT. PT / CHIEF PORT DIRECTOR TO EDUCATE ON PNEUMONIA / ASPIRATION PNEUMONIA SELF-MANAGEMENT. PT/CHIEF PORT DIRECTOR TO IDENTIFY FALL RISK FACTORS; EDUCATE THE PATIENT/CAREGIVER ON WAYS TO REDUCE FALL RISK FACTORS AND ESTABLISH HOME EXERCISE PROGRAM TO MINIMIZE FALL RISK. MAY TEACH THE PATIENT FLOOR RECOVERY WHEN CLINICALLY APPROPRIATE] Future Scheduled Test AGENCY MAY PERFORM A RESUMPTION OF CARE VISIT FOLLOWING ANY HOSPITAL ADMISSION. OT TO EVALUATE, OBSERVE / ASSESS, AND MONITOR, SPOOLING MACHINE OPERATOR TO OBSERVE AND MONITOR, PROVIDE SKILLED THERAPEUTIC INTERVENTION, ACTIVITY, EDUCATION, AND TRAINING TO ADDRESS SAFETY AND INDEPENDENCE OF ADLS AND FUNCTIONAL TRANSFERS IN HOME ENVIRONMENT. ACTIVITIES OF DAILY LIVING (OT/MARIANNE) THERAPEUTIC EXERCISE (OT/SPOOLING MACHINE OPERATOR) ENERGY CONSERVATION/ACTIVITY DEMAND (OT/SPOOLING MACHINE OPERATOR) OT/SPOOLING MACHINE OPERATOR TO MONITOR AND EDUCATE ON OXYGEN SATURATION DURING ADLS/IADLS, NOTIFY PHYSICIAN AND/OR THE RN CLINICAL DIRECTOR PRESALES FOR PHYSICIAN NOTIFICATION AND IF O2 SATS BELOW 90% AFTER 10 MIN OF REST. OT / SPOOLING MACHINE OPERATOR TO IDENTIFY FALL RISK FACTORS; EDUCATE THE PATIENT/CAREGIVER ON WAYS TO REDUCE FALL RISK FACTORS AND ESTABLISH HOME EXERCISE PROGRAM TO MINIMIZE FALL RISK. MAY TEACH THE PATIENT FLOOR RECOVERY WHEN CLINICALLY APPROPRIATE. OT/SPOOLING MACHINE OPERATOR TO EDUCATE ON HYPERTENSION SELF-MANAGEMENT OT/MARIANNE TO EDUCATE ON ATRIAL FIBRILLATION SELF-MANAGEMENT. [code = AGENCY MAY PERFORM A RESUMPTION OF CARE VISIT FOLLOWING ANY HOSPITAL ADMISSION. OT TO EVALUATE, OBSERVE / ASSESS, AND MONITOR, SPOOLING MACHINE OPERATOR TO OBSERVE AND MONITOR, PROVIDE SKILLED THERAPEUTIC INTERVENTION, ACTIVITY, EDUCATION, AND TRAINING TO ADDRESS SAFETY AND INDEPENDENCE OF ADLS AND FUNCTIONAL TRANSFERS IN HOME ENVIRONMENT. ACTIVITIES OF DAILY LIVING (OT/MARIANNE) THERAPEUTIC EXERCISE (OT/SPOOLING MACHINE OPERATOR) ENERGY CONSERVATION/ACTIVITY DEMAND (OT/MARIANNE) OT/SPOOLING MACHINE OPERATOR TO MONITOR AND EDUCATE ON OXYGEN SATURATION DURING ADLS/IADLS, NOTIFY PHYSICIAN AND/OR THE RN CLINICAL DIRECTOR PRESALES FOR PHYSICIAN NOTIFICATION AND IF O2 SATS BELOW 90% AFTER 10 MIN OF REST. OT / MARIANNE TO IDENTIFY FALL RISK FACTORS; EDUCATE THE PATIENT/CAREGIVER ON WAYS TO REDUCE FALL RISK FACTORS AND ESTABLISH HOME EXERCISE PROGRAM TO MINIMIZE FALL RISK. MAY TEACH THE PATIENT FLOOR RECOVERY WHEN CLINICALLY APPROPRIATE. OT/SPOOLING MACHINE OPERATOR TO EDUCATE ON HYPERTENSION SELF-MANAGEMENT OT/MARIANNE [...] OF SKIN INTEGRITY ISSUES FROM SBA TO DE WITHIN 2 WKS. PT STG: PATIENT WILL [...] TO SAFELY NEGOTIATE STAIRS FROM SBA TO DE WITH 2 STEPS W/O HANDRAIL VIA FRONT [...] End Date/Time Encounter Type Admission Type Attending [facility] Care Department Encounter ID Discharge Date Discharge Status Discharge Condition Discharge Reason Percent Goals Met 2025-02-07 00:00:00 2025-04-07 00:00:00 Outpatient NEW ADMISSION [facility] [id number]
--- OUTSIDE RECORDS SUMMARY | 2025-04-06 18:00 | XMS_ITS | Clinical Summary ---
Author Organization Unknown Care Team Providers Care Staff Radiation Therapist Name Role Phone DIGNA ARIEL, ESTRELLA Unavailable Unava dinora STOKES RN, FRANKIE Unavailable Unavailabl e KARI PT, DIDI Unavailable Unavailable NAT TRANSPORTATION ATTENDANT, GAUDENCIO Unavailable Unavailabl e RADHA OT, ROLANDO Unavailable Unavailable JOANNE STEVEN, HATTIE Unavailable Unavailable Payers Payer Name Policy Type Policy Number Effective Date Expira tion Date MEDICARE.[facility] [id number] Problems Condition Name Condition Details Condition Category Status Onset Date Resolution Date Last Treatment Date Treating Clinician Comments 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 02-07 [...] OF PNEUMONIA (RECURRENT) Active 02-07 00:00: 00 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) USE OF SYSTEMIC STEROIDS Active 02-07 [...] 80 mg tablet 02-07 00:00: 00 Yes [id number] CHOLESTEROL 1 tablet DAILY 1 tablet DAILY (route: oral) Med Classific ation: Cardiovas cular Therapy Agents digoxin 125 mcg (0.125 mg) tablet 02-07 00:00: 00 02-21 23:59 :00 No [id number] HEART RHYTHM 1 tablet DAILY 1 tablet DAILY (route: oral) Med Classific ation: Cardiovas cular Therapy Agents escitalopra m 10 mg tablet 02-07 00:00: 00 Yes [id number] MOOD 1 tablet DAILY 1 tablet DAILY (route: oral) Med Classific ation: Central Nervous System Agents ezetimibe 10 mg tablet 02-07 00:00: 00 Yes [id number] CHOLESTEROL 1 tablet DAILY 1 tablet DAILY (route: oral) Med Classific ation: Cardiovas cular Therapy Agents metoprolol succinate ER 25 mg tablet,exte nded release 24 hr 02-07 00:00: 00 02-21 23:59 :00 No [id number] BLOOD PRESSURE 0.5 tablet DAILY 0.5 tablet DAILY (route: oral) Med Classific ation: Cardiovas cular Therapy Agents pantoprazol e 40 mg tablet,joão yed release 02-07 00:00: 00 02-21 23:59 :00 No [id number] STOMACH ACID 1 tablet DAILY 1 tablet DAILY (route: oral) Med Classific ation: Gastroint estinal Therapy Agents prednisone 5 mg tablet 02-07 00:00: 00 Yes [id number] ADRENAL INSUFFICIEN CY 1 tablet DAILY 1 tablet DAILY (route: oral) Med Classific ation: Endocrine spironolact one 25 mg tablet 02-07 00:00: 00 Yes [id number] FLUID RETENTION 0.5 tablet DAILY 0.5 tablet DAILY (route: oral) Med Classific ation: Cardiovas cular Therapy Agents tamsulosin 0.4 mg capsule 02-07 00:00: 00 02-21 23:59 :00 No [id number] URINARY HEALTH 1 capsule DAILY 1 capsule DAILY (route: oral) Med Classific ation: Genitouri nary Therapy acetaminoph en 325 mg tablet 2024-05 00:00: 00 Yes [id number] PAIN 2 tablet 2 TIMES DAILY 2 tablet 2 TIMES DAILY (route: oral) Med Classific ation: Analgesic , Anti-infl ammatory or Antipyret ic aspirin 81 mg tablet 2024-05 00:00: 00 Yes [id number] ANTICOAGULA NT 1 tablet DAILY 1 tablet DAILY (route: oral) Med Classific ation: Hematolog ical Agents ipratropium 0.5 mg-albutero l 3 mg (2.5 mg base)/3 mL nebulizatio n soln 2024-05 00:00: 00 Yes [id number] COPD 3 mL EVERY 6 HOURS 3 mL EVERY 6 HOURS (route: inhalation ) Med Classific ation: Respirato ry Therapy Agents Lanoxin 62.5 mcg (0.0625 mg) tablet 2024-05 00:00: 00 Yes [id number] CHF 1 tablet DAILY 1 tablet DAILY (route: oral) Med Classific ation: Cardiovas cular Therapy Agents Lasix 20 mg tablet 2024-05 00:00: 00 Yes [id number] CHF 1 tablet DAILY 1 tablet DAILY (route: oral) Med Classific ation: Cardiovas cular Therapy Agents Toprol XL 25 mg tablet,exte nded release 2024-05 00:00: 00 Yes [id number] BP 25 mg DAILY 25 mg DAILY [...] SYSTEM MANAGEMENT; RN TO ASSESS AND TEACH, COMMERCIAL LIGHT FIXTURE ASSEMBLER/MOP MAKER TO OBSERVE AND TEACH RELATED TO ALTERED RESPIRATORY STATUS TO MINIMIZE COMPLICATIONS AND REDUCE HOSPITALIZATION. [code = SN 1WK9 PT 1WK1 OT EFFECTIVE 02/10/2025K1 RESPIRATORY SYSTEM MANAGEMENT; RN TO ASSESS AND TEACH, COMMERCIAL LIGHT FIXTURE ASSEMBLER/MOP MAKER TO OBSERVE AND TEACH RELATED TO ALTERED RESPIRATORY STATUS TO MINIMIZE COMPLICATIONS AND REDUCE HOSPITALIZATION.] Future Scheduled Test TRACHEOSTO MY CARE MANAGEMENT; RN/COMMERCIAL LIGHT FIXTURE ASSEMBLER/MOP MAKER TO INSTRUCT PATIENT/CAREGIVER ON CARE AND MANAGEMENT OF TRACHEOSTOMY. RN/ COMMERCIAL LIGHT FIXTURE ASSEMBLER/MOP MAKER TO PROVIDE SKILLED TEACHING ON TRACH COLLAR SUCTIONING PRN WITH 14 FR SUCTION CATHETER PER PATIENT TRACH CARE WITH INNER CANNULA: REMOVE INNER CANNULA, CLEANSE WITH NORMAL SALINE AND OR STERILE WATER AND REINSERT NON-DISPOSABLE CANNULA SIZE OF INNER CANNULA 5 BROOKS [code = TRACHEOSTOMY CARE MANAGEMENT; RN/COMMERCIAL LIGHT FIXTURE ASSEMBLER/MOP MAKER TO INSTRUCT PATIENT/CAREGIVER ON CARE AND MANAGEMENT OF TRACHEOSTOMY. RN/ COMMERCIAL LIGHT FIXTURE ASSEMBLER/MOP MAKER TO PROVIDE SKILLED TEACHING ON TRACH COLLAR SUCTIONING PRN WITH 14 FR SUCTION CATHETER PER PATIENT TRACH CARE WITH INNER CANNULA: REMOVE INNER CANNULA, CLEANSE WITH NORMAL SALINE AND OR STERILE WATER AND REINSERT NON-DISPOSABLE CANNULA SIZE OF INNER CANNULA 5 BROOKS] Future Scheduled Test FALL REDUC TION MANAGEMENT; RN TO ASSESS AND OBSERVE, COMMERCIAL LIGHT FIXTURE ASSEMBLER/MOP MAKER TO OBSERVE FALL RISK FACTORS AND EDUCATE PATIENT/CAREGIVER ON STRATEGIES TO MINIMIZE THE RISK OF FALLING. [code = FALL REDUCTION MANAGEMENT; RN TO ASSESS AND OBSERVE, COMMERCIAL LIGHT FIXTURE ASSEMBLER/MOP MAKER TO OBSERVE FALL RISK FACTORS AND EDUCATE PATIENT/CAREGIVER ON STRATEGIES TO MINIMIZE THE RISK OF FALLING.] Future Scheduled Test ANEMIA MAN AGEMENT; RN TO ASSESS AND TEACH, MOP MAKER/COMMERCIAL LIGHT FIXTURE ASSEMBLER TO OBSERVE AND TEACH AND PROVIDE EDUCATION ON ANEMIA. [code = ANEMIA MANAGEMENT; RN TO ASSESS AND TEACH, MOP MAKER/COMMERCIAL LIGHT FIXTURE ASSEMBLER TO OBSERVE AND TEACH AND PROVIDE EDUCATION ON ANEMIA.] Future Scheduled Test RN TO OBSE RVE, ASSESS, EVALUATE, AND DEVELOP AN INDIVIDUALIZED PLAN OF CARE. AGENCY MAY ACCEPT ORDERS FROM CONSULTING PHYSICIANS RN TO OBSERVE AND ASSESS, COMMERCIAL LIGHT FIXTURE ASSEMBLER/MOP MAKER TO OBSERVE FOR RISK FOR FALLS AND INSTRUCT IN FALL PREVENTION, HOME SAFETY, MEDICATION MANAGEMENT, INFECTION PREVENTION, AND NUTRITION MANAGEMENT. RN/COMMERCIAL LIGHT FIXTURE ASSEMBLER/MOP MAKER NURSE MAY PERFORM O2 SATURATION LEVEL ON ADMISSION AND PRN FOR RN TO ASSESS/COMMERCIAL LIGHT FIXTURE ASSEMBLER TO OBSERVE PATIENT, WITH NOTIFICATION TO THE PHYSICIAN IF SATURATION IS 90% IN THE ABSENCE OF MORE SPECIFIC PARAMETERS FROM THE PHYSICIAN. AGENCY MAY PERFORM A RESUMPTION OF CARE VISIT FOLLOWING ANY HOSPITAL ADMISSION. RN/COMMERCIAL LIGHT FIXTURE ASSEMBLER/MOP MAKER TO MONITOR CO-MORBID CONDITIONS LISTED ON THE PLAN OF CARE AND ANY NEW CONDITIONS THAT PRESENT THEMSELVES DURING THIS EPISODE TO IDENTIFY CHANGES AND INTERVENE TO MINIMIZE COMPLICATIONS. [code = RN TO OBSERVE, ASSESS, EVALUATE, AND DEVELOP AN INDIVIDUALIZED PLAN OF CARE. AGENCY MAY ACCEPT ORDERS FROM CONSULTING PHYSICIANS RN TO OBSERVE AND ASSESS, COMMERCIAL LIGHT FIXTURE ASSEMBLER/MOP MAKER TO OBSERVE FOR RISK FOR FALLS AND INSTRUCT IN FALL PREVENTION, HOME SAFETY, MEDICATION MANAGEMENT, INFECTION PREVENTION, AND NUTRITION MANAGEMENT. RN/COMMERCIAL LIGHT FIXTURE ASSEMBLER/MOP MAKER NURSE MAY PERFORM O2 SATURATION LEVEL ON ADMISSION AND PRN FOR RN TO ASSESS/COMMERCIAL LIGHT FIXTURE ASSEMBLER TO OBSERVE PATIENT, WITH NOTIFICATION TO THE PHYSICIAN IF SATURATION IS 90% IN THE ABSENCE OF MORE SPECIFIC PARAMETERS FROM THE PHYSICIAN. AGENCY MAY PERFORM A RESUMPTION OF CARE VISIT FOLLOWING ANY HOSPITAL ADMISSION. RN/COMMERCIAL LIGHT FIXTURE ASSEMBLER/MOP MAKER TO MONITOR CO-MORBID CONDITIONS LISTED ON THE PLAN OF CARE AND ANY NEW CONDITIONS THAT PRESENT THEMSELVES DURING THIS EPISODE TO IDENTIFY CHANGES AND INTERVENE TO MINIMIZE COMPLICATIONS.] Future Scheduled Test PAIN MANAG EMENT; RN TO ASSESS AND TEACH, MOP MAKER/COMMERCIAL LIGHT FIXTURE ASSEMBLER TO OBSERVE AND TEACH AND PROVIDE EDUCATION ON PAIN MANAGEMENT TECHNIQUES. [code = PAIN MANAGEMENT; RN TO ASSESS AND TEACH, MOP MAKER/COMMERCIAL LIGHT FIXTURE ASSEMBLER TO OBSERVE AND TEACH AND PROVIDE EDUCATION ON PAIN MANAGEMENT TECHNIQUES.] Future Scheduled Test RISK FOR H OSPITALIZATION; RN TO ASSESS/TEACH, MOP MAKER/COMMERCIAL LIGHT FIXTURE ASSEMBLER TO OBSERVE/TEACH PATIENT/CAREGIVER ON RISK FOR HOSPITALIZATION/EMERGENCY ROOM VISITS, TEACH SIGNS AND SYMPTOMS THAT PUT PATIENT AT RISK, WHEN TO NOTIFY NURSE/PHYSICIAN OF COMPLICATIONS/DECLINE, AND WHEN TO CALL 911. [code = RISK FOR HOSPITALIZATION; RN TO ASSESS/TEACH, MOP MAKER/COMMERCIAL LIGHT FIXTURE ASSEMBLER TO OBSERVE/TEACH PATIENT/CAREGIVER ON RISK FOR HOSPITALIZATION/EMERGENCY ROOM VISITS, TEACH SIGNS AND SYMPTOMS THAT PUT PATIENT AT RISK, WHEN TO NOTIFY NURSE/PHYSICIAN OF COMPLICATIONS/DECLINE, AND WHEN TO CALL 911.] Future Scheduled Test CARDIOVASC ULAR SYSTEM; RN TO ASSESS/TEACH, COMMERCIAL LIGHT FIXTURE ASSEMBLER/MOP MAKER TO OBSERVE/TEACH RELATED TO ALTERED CARDIOVASCULAR STATUS TO MINIMIZE COMPLICATIONS AND REDUCE HOSPITALIZATION. [code = CARDIOVASCULAR SYSTEM; RN TO ASSESS/TEACH, COMMERCIAL LIGHT FIXTURE ASSEMBLER/MOP MAKER TO OBSERVE/TEACH RELATED TO ALTERED CARDIOVASCULAR STATUS TO MINIMIZE COMPLICATIONS AND REDUCE HOSPITALIZATION.] Future Scheduled Test HYPERTENSI ON MANAGEMENT; RN TO ASSESS AND TEACH, COMMERCIAL LIGHT FIXTURE ASSEMBLER/MOP MAKER TO OBSERVE AND TEACH WARNING SIGNS AND SYMPTOMS TO AVOID HOSPITALIZATION. [code = HYPERTENSION MANAGEMENT; RN TO ASSESS AND TEACH, COMMERCIAL LIGHT FIXTURE ASSEMBLER/MOP MAKER TO OBSERVE AND TEACH WARNING SIGNS AND SYMPTOMS TO AVOID HOSPITALIZATION.] Future Scheduled Test HEART FAIL URE MONITORING RN/MOP MAKER/COMMERCIAL LIGHT FIXTURE ASSEMBLER TO MONITOR PATIENT FOR SIGNS AND SYMPTOMS OF HEART FAILURE EXACERBATION, MONITOR FOR ADHERENCE WITH MEDICATION AND HEART FAILURE MANAGEMENT REGIMEN. [code = HEART FAILURE MONITORING RN/MOP MAKER/COMMERCIAL LIGHT FIXTURE ASSEMBLER TO MONITOR PATIENT FOR SIGNS AND SYMPTOMS OF HEART FAILURE EXACERBATION, MONITOR FOR ADHERENCE WITH MEDICATION AND HEART FAILURE MANAGEMENT REGIMEN.] Future Scheduled Test DIABETES M ONITORING RN/MOP MAKER/COMMERCIAL LIGHT FIXTURE ASSEMBLER TO MONITOR BLOOD SUGAR LOG FOR BLOOD SUGAR READINGS THAT ARE BEING CHECKED BY PATIENT, CAREGIVER NEEDED FOR SIGNS AND SYMPTOMS OF HYPER/HYPOGLYCEMIA. PATIENT THERAPEUTIC BLOOD SUGAR PARAMETERS ARE 70 - 300. REPORT BLOOD SUGARS OUT OF RANGE TO PHYSICIAN. NURSE MAY PERFORM FINGER STICK BLOOD GLUCOSE NEEDED FOR SIGNS AND SYMPTOMS OF HYPO AND HYPERGLYCEMIA. RN/MOP MAKER/COMMERCIAL LIGHT FIXTURE ASSEMBLER TO MONITOR ADHERENCE OF PATIENT/CAREGIVER PERFORMING DIABETIC FOOT CARE AND MAY PERFORM DIABETIC FOOT CARE PRN. RN/MOP MAKER/COMMERCIAL LIGHT FIXTURE ASSEMBLER TO MONITOR FOR ADHERENCE TO DIABETIC SELF-CARE AND MANAGEMENT INCLUDING MEDICATIONS. [code = DIABETES MONITORING RN/MOP MAKER/COMMERCIAL LIGHT FIXTURE ASSEMBLER TO MONITOR BLOOD SUGAR LOG FOR BLOOD SUGAR READINGS THAT ARE BEING CHECKED BY PATIENT, CAREGIVER NEEDED FOR SIGNS AND SYMPTOMS OF HYPER/HYPOGLYCEMIA. PATIENT THERAPEUTIC BLOOD SUGAR PARAMETERS ARE 70 - 300. REPORT BLOOD SUGARS OUT OF RANGE TO PHYSICIAN. NURSE MAY PERFORM FINGER STICK BLOOD GLUCOSE NEEDED FOR SIGNS AND SYMPTOMS OF HYPO AND HYPERGLYCEMIA. RN/MOP MAKER/COMMERCIAL LIGHT FIXTURE ASSEMBLER TO MONITOR ADHERENCE OF PATIENT/CAREGIVER PERFORMING DIABETIC FOOT CARE AND MAY PERFORM DIABETIC FOOT CARE PRN. RN/MOP MAKER/COMMERCIAL LIGHT FIXTURE ASSEMBLER TO MONITOR FOR ADHERENCE TO DIABETIC SELF-CARE AND MANAGEMENT INCLUDING MEDICATIONS.] Future Scheduled Test HYPOTENSIO N MANAGEMENT; RN TO ASSESS AND TEACH/ COMMERCIAL LIGHT FIXTURE ASSEMBLER /MOP MAKER TO OBSERVE AND TEACH WARNING SIGNS AND SYMPTOMS TO AVOID HOSPITALIZATION. [code = HYPOTENSION MANAGEMENT; RN TO ASSESS AND TEACH/ COMMERCIAL LIGHT FIXTURE ASSEMBLER /MOP MAKER TO OBSERVE AND TEACH WARNING SIGNS AND SYMPTOMS TO AVOID HOSPITALIZATION.] Future Scheduled Test ARRHYTHMIA MANAGEMENT; RN TO ASSESS AND TEACH, COMMERCIAL LIGHT FIXTURE ASSEMBLER/MOP MAKER TO OBSERVE AND TEACH WARNING SIGNS AND SYMPTOMS TO AVOID HOSPITALIZATION. [code = ARRHYTHMIA MANAGEMENT; RN TO ASSESS AND TEACH, COMMERCIAL LIGHT FIXTURE ASSEMBLER/MOP MAKER TO OBSERVE AND TEACH WARNING SIGNS AND SYMPTOMS TO AVOID HOSPITALIZATION.] Future Scheduled Test MEDICATION MANAGEMENT; RN/COMMERCIAL LIGHT FIXTURE ASSEMBLER/MOP MAKER TO REVIEW MEDICATIONS FOR INTERACTIONS, EFFECTIVENESS OF DRUG THERAPY, AND SIGNS/SYMPTOMS OF ADVERSE REACTIONS. MAY INSTRUCT AND REINFORCE MEDICATION TEACHING RELATED TO THE USE OF MEDICATIONS, DOSAGE, FREQUENCY, PURPOSE, SIDE EFFECTS, AND TO REPORT COMPLICATIONS. [code = MEDICATION MANAGEMENT; RN/COMMERCIAL LIGHT FIXTURE ASSEMBLER/MOP MAKER TO REVIEW MEDICATIONS FOR INTERACTIONS, EFFECTIVENESS OF [...] EVAL UATE, OBSERVE / ASSESS, AND MONITOR, TRANSPORTATION ATTENDANT TO OBSERVE AND MONITOR, PROVIDE SKILLED THERAPEUTIC INTERVENTION, ACTIVITY, EDUCATION, AND TRAINING TO ADDRESS GEN. WEAKNESS, POOR OVERALL ACTIVITY TOLERANCE, AND FUNCTIONAL LIMITATIONS IMPACTING SAFETY AND INDEPENDENCE. BED MOBILITY (PT/TRANSPORTATION ATTENDANT) PT/TRANSPORTATION ATTENDANT TO PROVIDE GAIT TRAINING FOR IMPROVED MOBILITY AND /OR TO NORMALIZE GAIT PATTERN THERAPEUTIC EXERCISES AND ESTABLISHING A HOME EXERCISE PROGRAM (PT/TRANSPORTATION ATTENDANT) PT/TRANSPORTATION ATTENDANT TO PROVIDE STAIR TRAINING PT / TRANSPORTATION ATTENDANT TO MONITOR AND EDUCATE ON OXYGEN SATURATION DURING ADLS/IADLS, NOTIFY PHYSICIAN AND/OR THE RN CLINICAL SEXTON HELPER FOR PHYSICIAN NOTIFICATION AND IF O2 SATS BELOW PHYSICIAN ORDERED PARAMETERS AFTER 10 MIN OF REST PT / TRANSPORTATION ATTENDANT TO OBSERVE FOR EARLY SIGNS AND SYMPTOMS OF DEPRESSION OR DEPRESSION GETTING WORSE AND TO EDUCATE ON HOW TO FIND HELP. PT / TRANSPORTATION ATTENDANT MAY EDUCATE ON PAIN MANAGEMENT CLINICALLY INDICATED, INCLUDING NON-PHARMACOLOGICAL PAIN REDUCTION TECHNIQUES PT / TRANSPORTATION ATTENDANT TO MONITOR FOR HYPO/HYPERGLYCEMIA AND CONDUCT ROUTINE FOOT INSPECTIONS. RECORD PATIENT REPORTED BLOOD SUGAR LEVELS AND NOTIFY PHYSICIAN AND/OR THE RN CLINICAL SEXTON HELPER FOR PHYSICIAN NOTIFICATION IF BLOOD SUGAR LEVELS ARE OUTSIDE ORDERED PARAMETERS. TEACH PATIENT/CAREGIVER ON DAILY FOOT INSPECTIONS PT / TRANSPORTATION ATTENDANT TO INSTRUCT PATIENT/CAREGIVER ON RISK FOR HOSPITALIZATION/EMERGENCY ROOM VISITS, TEACH SIGNS AND SYMPTOMS THAT PUT PATIENT AT RISK, WHEN TO NOTIFY NURSE/PHYSICIAN OF COMPLICATIONS/DECLINE, AND WHEN TO CALL 911. PT/TRANSPORTATION ATTENDANT TO EDUCATE ON ARTHRITIS SELF-MANAGEMENT PT / TRANSPORTATION ATTENDANT TO EDUCATE ON HEART FAILURE SELF-MANAGEMENT PT / TRANSPORTATION ATTENDANT TO EDUCATE ON HYPERTENSION SELF-MANAGEMENT PT TO ASSESS / TRANSPORTATION ATTENDANT TO MONITOR CARDIO/RESPIRATORY SYSTEM; AND NOTIFY THE PHYSICIAN AND/OR THE RN CLINICAL SEXTON HELPER FOR PHYSICIAN NOTIFICATION FOR EARLY SIGNS AND SYMPTOMS OF EXACERBATION OR DETERIORATION. PT / TRANSPORTATION ATTENDANT TO EDUCATE ON ATRIAL FIBRILLATION SELF-MANAGEMENT. PT / TRANSPORTATION ATTENDANT TO EDUCATE ON PNEUMONIA / ASPIRATION PNEUMONIA SELF-MANAGEMENT. PT/TRANSPORTATION ATTENDANT TO IDENTIFY FALL RISK FACTORS; EDUCATE THE PATIENT/CAREGIVER ON WAYS TO REDUCE FALL RISK FACTORS AND ESTABLISH HOME EXERCISE PROGRAM TO MINIMIZE FALL RISK. MAY TEACH THE PATIENT FLOOR RECOVERY WHEN CLINICALLY APPROPRIATE [code = PT TO EVALUATE, OBSERVE / ASSESS, AND MONITOR, TRANSPORTATION ATTENDANT TO OBSERVE AND MONITOR, PROVIDE SKILLED THERAPEUTIC INTERVENTION, ACTIVITY, EDUCATION, AND TRAINING TO ADDRESS GEN. WEAKNESS, POOR OVERALL ACTIVITY TOLERANCE, AND FUNCTIONAL LIMITATIONS IMPACTING SAFETY AND INDEPENDENCE. BED MOBILITY (PT/TRANSPORTATION ATTENDANT) PT/TRANSPORTATION ATTENDANT TO PROVIDE GAIT TRAINING FOR IMPROVED MOBILITY AND /OR TO NORMALIZE GAIT PATTERN THERAPEUTIC EXERCISES AND ESTABLISHING A HOME EXERCISE PROGRAM (PT/TRANSPORTATION ATTENDANT) PT/TRANSPORTATION ATTENDANT TO PROVIDE STAIR TRAINING PT / TRANSPORTATION ATTENDANT TO MONITOR AND EDUCATE ON OXYGEN SATURATION DURING ADLS/IADLS, NOTIFY PHYSICIAN AND/OR THE RN CLINICAL SEXTON HELPER FOR PHYSICIAN NOTIFICATION AND IF O2 SATS BELOW PHYSICIAN ORDERED PARAMETERS AFTER 10 MIN OF REST PT / TRANSPORTATION ATTENDANT TO OBSERVE FOR EARLY SIGNS AND SYMPTOMS OF DEPRESSION OR DEPRESSION GETTING WORSE AND TO EDUCATE ON HOW TO FIND HELP. PT / TRANSPORTATION ATTENDANT MAY EDUCATE ON PAIN MANAGEMENT CLINICALLY INDICATED, INCLUDING NON-PHARMACOLOGICAL PAIN REDUCTION TECHNIQUES PT / TRANSPORTATION ATTENDANT TO MONITOR FOR HYPO/HYPERGLYCEMIA AND CONDUCT ROUTINE FOOT INSPECTIONS. RECORD PATIENT REPORTED BLOOD SUGAR LEVELS AND NOTIFY PHYSICIAN AND/OR THE RN CLINICAL SEXTON HELPER FOR PHYSICIAN NOTIFICATION IF BLOOD SUGAR LEVELS ARE OUTSIDE ORDERED PARAMETERS. TEACH PATIENT/CAREGIVER ON DAILY FOOT INSPECTIONS PT / TRANSPORTATION ATTENDANT TO INSTRUCT PATIENT/CAREGIVER ON RISK FOR HOSPITALIZATION/EMERGENCY ROOM VISITS, TEACH SIGNS AND SYMPTOMS THAT PUT PATIENT AT RISK, WHEN TO NOTIFY NURSE/PHYSICIAN OF COMPLICATIONS/DECLINE, AND WHEN TO CALL 911. PT/TRANSPORTATION ATTENDANT TO EDUCATE ON ARTHRITIS SELF-MANAGEMENT PT / TRANSPORTATION ATTENDANT TO EDUCATE ON HEART FAILURE SELF-MANAGEMENT PT / TRANSPORTATION ATTENDANT TO EDUCATE ON HYPERTENSION SELF-MANAGEMENT PT TO ASSESS / TRANSPORTATION ATTENDANT TO MONITOR CARDIO/RESPIRATORY SYSTEM; AND NOTIFY THE PHYSICIAN AND/OR THE RN CLINICAL SEXTON HELPER FOR PHYSICIAN NOTIFICATION FOR EARLY SIGNS AND SYMPTOMS OF EXACERBATION OR DETERIORATION. PT / TRANSPORTATION ATTENDANT TO EDUCATE ON ATRIAL FIBRILLATION SELF-MANAGEMENT. PT / TRANSPORTATION ATTENDANT TO EDUCATE ON PNEUMONIA / ASPIRATION PNEUMONIA SELF-MANAGEMENT. PT/TRANSPORTATION ATTENDANT TO IDENTIFY FALL RISK FACTORS; EDUCATE THE PATIENT/CAREGIVER ON WAYS TO REDUCE FALL RISK FACTORS AND ESTABLISH HOME EXERCISE PROGRAM TO MINIMIZE FALL RISK. MAY TEACH THE PATIENT FLOOR RECOVERY WHEN CLINICALLY APPROPRIATE] Future Scheduled Test AGENCY MAY PERFORM A RESUMPTION OF CARE VISIT FOLLOWING ANY HOSPITAL ADMISSION. OT TO EVALUATE, OBSERVE / ASSESS, AND MONITOR, CONTINUOUS PROCESS TANNER ROTARY DRUM TO OBSERVE AND MONITOR, PROVIDE SKILLED THERAPEUTIC INTERVENTION, ACTIVITY, EDUCATION, AND TRAINING TO ADDRESS SAFETY AND INDEPENDENCE OF ADLS AND FUNCTIONAL TRANSFERS IN HOME ENVIRONMENT. ACTIVITIES OF DAILY LIVING (OT/MARIANNE) THERAPEUTIC EXERCISE (OT/CONTINUOUS PROCESS TANNER ROTARY DRUM) ENERGY CONSERVATION/ACTIVITY DEMAND (OT/CONTINUOUS PROCESS TANNER ROTARY DRUM) OT/CONTINUOUS PROCESS TANNER ROTARY DRUM TO MONITOR AND EDUCATE ON OXYGEN SATURATION DURING ADLS/IADLS, NOTIFY PHYSICIAN AND/OR THE RN CLINICAL SEXTON HELPER FOR PHYSICIAN NOTIFICATION AND IF O2 SATS BELOW 90% AFTER 10 MIN OF REST. OT / CONTINUOUS PROCESS TANNER ROTARY DRUM TO IDENTIFY FALL RISK FACTORS; EDUCATE THE PATIENT/CAREGIVER ON WAYS TO REDUCE FALL RISK FACTORS AND ESTABLISH HOME EXERCISE PROGRAM TO MINIMIZE FALL RISK. MAY TEACH THE PATIENT FLOOR RECOVERY WHEN CLINICALLY APPROPRIATE. OT/CONTINUOUS PROCESS TANNER ROTARY DRUM TO EDUCATE ON HYPERTENSION SELF-MANAGEMENT OT/MRAIANNE TO EDUCATE ON ATRIAL FIBRILLATION SELF-MANAGEMENT. [code = AGENCY MAY PERFORM A RESUMPTION OF CARE VISIT FOLLOWING ANY HOSPITAL ADMISSION. OT TO EVALUATE, OBSERVE / ASSESS, AND MONITOR, CONTINUOUS PROCESS TANNER ROTARY DRUM TO OBSERVE AND MONITOR, PROVIDE SKILLED THERAPEUTIC INTERVENTION, ACTIVITY, EDUCATION, AND TRAINING TO ADDRESS SAFETY AND INDEPENDENCE OF ADLS AND FUNCTIONAL TRANSFERS IN HOME ENVIRONMENT. ACTIVITIES OF DAILY LIVING (OT/MARIANNE) THERAPEUTIC EXERCISE (OT/CONTINUOUS PROCESS TANNER ROTARY DRUM) ENERGY CONSERVATION/ACTIVITY DEMAND (OT/MARIANNE) OT/CONTINUOUS PROCESS TANNER ROTARY DRUM TO MONITOR AND EDUCATE ON OXYGEN SATURATION DURING ADLS/IADLS, NOTIFY PHYSICIAN AND/OR THE RN CLINICAL SEXTON HELPER FOR PHYSICIAN NOTIFICATION AND IF O2 SATS BELOW 90% AFTER 10 MIN OF REST. OT / MARIANNE TO IDENTIFY FALL RISK FACTORS; EDUCATE THE PATIENT/CAREGIVER ON WAYS TO REDUCE FALL RISK FACTORS AND ESTABLISH HOME EXERCISE PROGRAM TO MINIMIZE FALL RISK. MAY TEACH THE PATIENT FLOOR RECOVERY WHEN CLINICALLY APPROPRIATE. OT/CONTINUOUS PROCESS TANNER ROTARY DRUM TO EDUCATE ON HYPERTENSION SELF-MANAGEMENT OT/MARIANNE TO [...] OF SKIN INTEGRITY ISSUES FROM [place] TO [place] WITHIN 2 WKS. PT STG: PATIENT WILL [...] TO SAFELY NEGOTIATE STAIRS FROM [place] WITH 2 STEPS W/O HANDRAIL VIA FRONT [...] Outpatient NEW ADMISSION [facility] [id number] 26.42
--- OUTSIDE RECORDS SUMMARY | 2025-04-06 18:00 | XMS_ITS | Clinical Summary ---
Author Organization Unknown Care Team Providers Care Outdoor Adventure Leader Name Role Phone DIGNA ARIEL, ESTRELLA Unavailable Unava dinora STOKES RN, FRANKIE Unavailable Unavailabl e KARI PT, DIDI Unavailable Unavailable NAT MONOLOGIST, GAUDENCIO Unavailable Unavailabl e RADHA OT, ROLANDO Unavailable Unavailable JOANNE STEVEN, HATTIE Unavailable Unavailable Payers Payer Name Policy Type Policy Number Effective Date Expira tion Date MEDICARE.[facility] [id number] Problems Condition Name Condition Details Condition Category Status Onset Date Resolution Date Last Treatment Date Treating Clinician Comments 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 02-07 [...] OF PNEUMONIA (RECURRENT) Active 02-07 00:00: 00 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 OF SYSTEMIC STEROIDS Active [...] 80 mg tablet 02-07 00:00: 00 Yes [id number] CHOLESTEROL 1 tablet DAILY 1 tablet DAILY (route: oral) Med Classific ation: Cardiovas cular Therapy Agents digoxin 125 mcg (0.125 mg) tablet 02-07 00:00: 00 02-21 23:59 :00 No [id number] HEART RHYTHM 1 tablet DAILY 1 tablet DAILY (route: oral) Med Classific ation: Cardiovas cular Therapy Agents escitalopra m 10 mg tablet 02-07 00:00: 00 Yes [id number] MOOD 1 tablet DAILY 1 tablet DAILY (route: oral) Med Classific ation: Central Nervous System Agents ezetimibe 10 mg tablet 02-07 00:00: 00 Yes [id number] CHOLESTEROL 1 tablet DAILY 1 tablet DAILY (route: oral) Med Classific ation: Cardiovas cular Therapy Agents metoprolol succinate ER 25 mg tablet,exte nded release 24 hr 02-07 00:00: 00 02-21 23:59 :00 No [id number] BLOOD PRESSURE 0.5 tablet DAILY 0.5 tablet DAILY (route: oral) Med Classific ation: Cardiovas cular Therapy Agents pantoprazol e 40 mg tablet,joão yed release 02-07 00:00: 00 02-21 23:59 :00 No [id number] STOMACH ACID 1 tablet DAILY 1 tablet DAILY (route: oral) Med Classific ation: Gastroint estinal Therapy Agents prednisone 5 mg tablet 02-07 00:00: 00 Yes [id number] ADRENAL INSUFFICIEN CY 1 tablet DAILY 1 tablet DAILY (route: oral) Med Classific ation: Endocrine spironolact one 25 mg tablet 02-07 00:00: 00 Yes [id number] FLUID RETENTION 0.5 tablet DAILY 0.5 tablet DAILY (route: oral) Med Classific ation: Cardiovas cular Therapy Agents tamsulosin 0.4 mg capsule 02-07 00:00: 00 02-21 23:59 :00 No [id number] URINARY HEALTH 1 capsule DAILY 1 capsule DAILY (route: oral) Med Classific ation: Genitouri nary Therapy acetaminoph en 325 mg tablet 2024-05 00:00: 00 Yes [id number] PAIN 2 tablet 2 TIMES DAILY 2 tablet 2 TIMES DAILY (route: oral) Med Classific ation: Analgesic , Anti-infl ammatory or Antipyret ic aspirin 81 mg tablet 2024-05 00:00: 00 Yes [id number] ANTICOAGULA NT 1 tablet DAILY 1 tablet DAILY (route: oral) Med Classific ation: Hematolog ical Agents ipratropium 0.5 mg-albutero l 3 mg (2.5 mg base)/3 mL nebulizatio n soln 2024-05 00:00: 00 Yes [id number] COPD 3 mL EVERY 6 HOURS 3 mL EVERY 6 HOURS (route: inhalation ) Med Classific ation: Respirato ry Therapy Agents Lanoxin 62.5 mcg (0.0625 mg) tablet 2024-05 00:00: 00 Yes [id number] CHF 1 tablet DAILY 1 tablet DAILY (route: oral) Med Classific ation: Cardiovas cular Therapy Agents Lasix 20 mg tablet 2024-05 00:00: 00 Yes [id number] CHF 1 tablet DAILY 1 tablet DAILY (route: oral) Med Classific ation: Cardiovas cular Therapy Agents Toprol XL 25 mg tablet,exte nded release 2024-05 00:00: 00 Yes [id number] BP 25 mg DAILY 25 mg DAILY [...] SYSTEM MANAGEMENT; RN TO ASSESS AND TEACH, FURNACE LINER/PULP TESTER TO OBSERVE AND TEACH RELATED TO ALTERED RESPIRATORY STATUS TO MINIMIZE COMPLICATIONS AND REDUCE HOSPITALIZATION. [code = SN 1WK9 PT 1WK1 OT EFFECTIVE 02/10/2025K1 RESPIRATORY SYSTEM MANAGEMENT; RN TO ASSESS AND TEACH, FURNACE LINER/PULP TESTER TO OBSERVE AND TEACH RELATED TO ALTERED RESPIRATORY STATUS TO MINIMIZE COMPLICATIONS AND REDUCE HOSPITALIZATION.] Future Scheduled Test TRACHEOSTO MY CARE MANAGEMENT; RN/FURNACE LINER/PULP TESTER TO INSTRUCT PATIENT/CAREGIVER ON CARE AND MANAGEMENT OF TRACHEOSTOMY. RN/ FURNACE LINER/PULP TESTER TO PROVIDE SKILLED TEACHING ON TRACH COLLAR SUCTIONING PRN WITH 14 FR SUCTION CATHETER PER PATIENT TRACH CARE WITH INNER CANNULA: REMOVE INNER CANNULA, CLEANSE WITH NORMAL SALINE AND OR STERILE WATER AND REINSERT NON-DISPOSABLE CANNULA SIZE OF INNER CANNULA 5 BROOKS [code = TRACHEOSTOMY CARE MANAGEMENT; RN/FURNACE LINER/PULP TESTER TO INSTRUCT PATIENT/CAREGIVER ON CARE AND MANAGEMENT OF TRACHEOSTOMY. RN/ FURNACE LINER/PULP TESTER TO PROVIDE SKILLED TEACHING ON TRACH COLLAR SUCTIONING PRN WITH 14 FR SUCTION CATHETER PER PATIENT TRACH CARE WITH INNER CANNULA: REMOVE INNER CANNULA, CLEANSE WITH NORMAL SALINE AND OR STERILE WATER AND REINSERT NON-DISPOSABLE CANNULA SIZE OF INNER CANNULA 5 BROOKS] Future Scheduled Test FALL REDUC TION MANAGEMENT; RN TO ASSESS AND OBSERVE, FURNACE LINER/PULP TESTER TO OBSERVE FALL RISK FACTORS AND EDUCATE PATIENT/CAREGIVER ON STRATEGIES TO MINIMIZE THE RISK OF FALLING. [code = FALL REDUCTION MANAGEMENT; RN TO ASSESS AND OBSERVE, FURNACE LINER/PULP TESTER TO OBSERVE FALL RISK FACTORS AND EDUCATE PATIENT/CAREGIVER ON STRATEGIES TO MINIMIZE THE RISK OF FALLING.] Future Scheduled Test ANEMIA MAN AGEMENT; RN TO ASSESS AND TEACH, PULP TESTER/FURNACE LINER TO OBSERVE AND TEACH AND PROVIDE EDUCATION ON ANEMIA. [code = ANEMIA MANAGEMENT; RN TO ASSESS AND TEACH, PULP TESTER/FURNACE LINER TO OBSERVE AND TEACH AND PROVIDE EDUCATION ON ANEMIA.] Future Scheduled Test RN TO OBSE RVE, ASSESS, EVALUATE, AND DEVELOP AN INDIVIDUALIZED PLAN OF CARE. AGENCY MAY ACCEPT ORDERS FROM CONSULTING PHYSICIANS RN TO OBSERVE AND ASSESS, FURNACE LINER/PULP TESTER TO OBSERVE FOR RISK FOR FALLS AND INSTRUCT IN FALL PREVENTION, HOME SAFETY, MEDICATION MANAGEMENT, INFECTION PREVENTION, AND NUTRITION MANAGEMENT. RN/FURNACE LINER/PULP TESTER NURSE MAY PERFORM O2 SATURATION LEVEL ON ADMISSION AND PRN FOR RN TO ASSESS/FURNACE LINER TO OBSERVE PATIENT, WITH NOTIFICATION TO THE PHYSICIAN IF SATURATION IS 90% IN THE ABSENCE OF MORE SPECIFIC PARAMETERS FROM THE PHYSICIAN. AGENCY MAY PERFORM A RESUMPTION OF CARE VISIT FOLLOWING ANY HOSPITAL ADMISSION. RN/FURNACE LINER/PULP TESTER TO MONITOR CO-MORBID CONDITIONS LISTED ON THE PLAN OF CARE AND ANY NEW CONDITIONS THAT PRESENT THEMSELVES DURING THIS EPISODE TO IDENTIFY CHANGES AND INTERVENE TO MINIMIZE COMPLICATIONS. [code = RN TO OBSERVE, ASSESS, EVALUATE, AND DEVELOP AN INDIVIDUALIZED PLAN OF CARE. AGENCY MAY ACCEPT ORDERS FROM CONSULTING PHYSICIANS RN TO OBSERVE AND ASSESS, FURNACE LINER/PULP TESTER TO OBSERVE FOR RISK FOR FALLS AND INSTRUCT IN FALL PREVENTION, HOME SAFETY, MEDICATION MANAGEMENT, INFECTION PREVENTION, AND NUTRITION MANAGEMENT. RN/FURNACE LINER/PULP TESTER NURSE MAY PERFORM O2 SATURATION LEVEL ON ADMISSION AND PRN FOR RN TO ASSESS/FURNACE LINER TO OBSERVE PATIENT, WITH NOTIFICATION TO THE PHYSICIAN IF SATURATION IS 90% IN THE ABSENCE OF MORE SPECIFIC PARAMETERS FROM THE PHYSICIAN. AGENCY MAY PERFORM A RESUMPTION OF CARE VISIT FOLLOWING ANY HOSPITAL ADMISSION. RN/FURNACE LINER/PULP TESTER TO MONITOR CO-MORBID CONDITIONS LISTED ON THE PLAN OF CARE AND ANY NEW CONDITIONS THAT PRESENT THEMSELVES DURING THIS EPISODE TO IDENTIFY CHANGES AND INTERVENE TO MINIMIZE COMPLICATIONS.] Future Scheduled Test PAIN MANAG EMENT; RN TO ASSESS AND TEACH, PULP TESTER/FURNACE LINER TO OBSERVE AND TEACH AND PROVIDE EDUCATION ON PAIN MANAGEMENT TECHNIQUES. [code = PAIN MANAGEMENT; RN TO ASSESS AND TEACH, PULP TESTER/FURNACE LINER TO OBSERVE AND TEACH AND PROVIDE EDUCATION ON PAIN MANAGEMENT TECHNIQUES.] Future Scheduled Test RISK FOR H OSPITALIZATION; RN TO ASSESS/TEACH, PULP TESTER/FURNACE LINER TO OBSERVE/TEACH PATIENT/CAREGIVER ON RISK FOR HOSPITALIZATION/EMERGENCY ROOM VISITS, TEACH SIGNS AND SYMPTOMS THAT PUT PATIENT AT RISK, WHEN TO NOTIFY NURSE/PHYSICIAN OF COMPLICATIONS/DECLINE, AND WHEN TO CALL 911. [code = RISK FOR HOSPITALIZATION; RN TO ASSESS/TEACH, PULP TESTER/FURNACE LINER TO OBSERVE/TEACH PATIENT/CAREGIVER ON RISK FOR HOSPITALIZATION/EMERGENCY ROOM VISITS, TEACH SIGNS AND SYMPTOMS THAT PUT PATIENT AT RISK, WHEN TO NOTIFY NURSE/PHYSICIAN OF COMPLICATIONS/DECLINE, AND WHEN TO CALL 911.] Future Scheduled Test CARDIOVASC ULAR SYSTEM; RN TO ASSESS/TEACH, FURNACE LINER/PULP TESTER TO OBSERVE/TEACH RELATED TO ALTERED CARDIOVASCULAR STATUS TO MINIMIZE COMPLICATIONS AND REDUCE HOSPITALIZATION. [code = CARDIOVASCULAR SYSTEM; RN TO ASSESS/TEACH, FURNACE LINER/PULP TESTER TO OBSERVE/TEACH RELATED TO ALTERED CARDIOVASCULAR STATUS TO MINIMIZE COMPLICATIONS AND REDUCE HOSPITALIZATION.] Future Scheduled Test HYPERTENSI ON MANAGEMENT; RN TO ASSESS AND TEACH, FURNACE LINER/PULP TESTER TO OBSERVE AND TEACH WARNING SIGNS AND SYMPTOMS TO AVOID HOSPITALIZATION. [code = HYPERTENSION MANAGEMENT; RN TO ASSESS AND TEACH, FURNACE LINER/PULP TESTER TO OBSERVE AND TEACH WARNING SIGNS AND SYMPTOMS TO AVOID HOSPITALIZATION.] Future Scheduled Test HEART FAIL URE MONITORING RN/PULP TESTER/FURNACE LINER TO MONITOR PATIENT FOR SIGNS AND SYMPTOMS OF HEART FAILURE EXACERBATION, MONITOR FOR ADHERENCE WITH MEDICATION AND HEART FAILURE MANAGEMENT REGIMEN. [code = HEART FAILURE MONITORING RN/PULP TESTER/FURNACE LINER TO MONITOR PATIENT FOR SIGNS AND SYMPTOMS OF HEART FAILURE EXACERBATION, MONITOR FOR ADHERENCE WITH MEDICATION AND HEART FAILURE MANAGEMENT REGIMEN.] Future Scheduled Test DIABETES M ONITORING RN/PULP TESTER/FURNACE LINER TO MONITOR BLOOD SUGAR LOG FOR BLOOD SUGAR READINGS THAT ARE BEING CHECKED BY PATIENT, CAREGIVER NEEDED FOR SIGNS AND SYMPTOMS OF HYPER/HYPOGLYCEMIA. PATIENT THERAPEUTIC BLOOD SUGAR PARAMETERS ARE 70 - 300. REPORT BLOOD SUGARS OUT OF RANGE TO PHYSICIAN. NURSE MAY PERFORM FINGER STICK BLOOD GLUCOSE NEEDED FOR SIGNS AND SYMPTOMS OF HYPO AND HYPERGLYCEMIA. RN/PULP TESTER/FURNACE LINER TO MONITOR ADHERENCE OF PATIENT/CAREGIVER PERFORMING DIABETIC FOOT CARE AND MAY PERFORM DIABETIC FOOT CARE PRN. RN/PULP TESTER/FURNACE LINER TO MONITOR FOR ADHERENCE TO DIABETIC SELF-CARE AND MANAGEMENT INCLUDING MEDICATIONS. [code = DIABETES MONITORING RN/PULP TESTER/FURNACE LINER TO MONITOR BLOOD SUGAR LOG FOR BLOOD SUGAR READINGS THAT ARE BEING CHECKED BY PATIENT, CAREGIVER NEEDED FOR SIGNS AND SYMPTOMS OF HYPER/HYPOGLYCEMIA. PATIENT THERAPEUTIC BLOOD SUGAR PARAMETERS ARE 70 - 300. REPORT BLOOD SUGARS OUT OF RANGE TO PHYSICIAN. NURSE MAY PERFORM FINGER STICK BLOOD GLUCOSE NEEDED FOR SIGNS AND SYMPTOMS OF HYPO AND HYPERGLYCEMIA. RN/PULP TESTER/FURNACE LINER TO MONITOR ADHERENCE OF PATIENT/CAREGIVER PERFORMING DIABETIC FOOT CARE AND MAY PERFORM DIABETIC FOOT CARE PRN. RN/PULP TESTER/FURNACE LINER TO MONITOR FOR ADHERENCE TO DIABETIC SELF-CARE AND MANAGEMENT INCLUDING MEDICATIONS.] Future Scheduled Test HYPOTENSIO N MANAGEMENT; RN TO ASSESS AND TEACH/ FURNACE LINER /PULP TESTER TO OBSERVE AND TEACH WARNING SIGNS AND SYMPTOMS TO AVOID HOSPITALIZATION. [code = HYPOTENSION MANAGEMENT; RN TO ASSESS AND TEACH/ FURNACE LINER /PULP TESTER TO OBSERVE AND TEACH WARNING SIGNS AND SYMPTOMS TO AVOID HOSPITALIZATION.] Future Scheduled Test ARRHYTHMIA MANAGEMENT; RN TO ASSESS AND TEACH, FURNACE LINER/PULP TESTER TO OBSERVE AND TEACH WARNING SIGNS AND SYMPTOMS TO AVOID HOSPITALIZATION. [code = ARRHYTHMIA MANAGEMENT; RN TO ASSESS AND TEACH, FURNACE LINER/PULP TESTER TO OBSERVE AND TEACH WARNING SIGNS AND SYMPTOMS TO AVOID HOSPITALIZATION.] Future Scheduled Test MEDICATION MANAGEMENT; RN/FURNACE LINER/PULP TESTER TO REVIEW MEDICATIONS FOR INTERACTIONS, EFFECTIVENESS OF DRUG THERAPY, AND SIGNS/SYMPTOMS OF ADVERSE REACTIONS. MAY INSTRUCT AND REINFORCE MEDICATION TEACHING RELATED TO THE USE OF MEDICATIONS, DOSAGE, FREQUENCY, PURPOSE, SIDE EFFECTS, AND TO REPORT COMPLICATIONS. [code = MEDICATION MANAGEMENT; RN/FURNACE LINER/PULP TESTER TO REVIEW MEDICATIONS FOR INTERACTIONS, EFFECTIVENESS OF [...] EVAL UATE, OBSERVE / ASSESS, AND MONITOR, MONOLOGIST TO OBSERVE AND MONITOR, PROVIDE SKILLED THERAPEUTIC INTERVENTION, ACTIVITY, EDUCATION, AND TRAINING TO ADDRESS GEN. WEAKNESS, POOR OVERALL ACTIVITY TOLERANCE, AND FUNCTIONAL LIMITATIONS IMPACTING SAFETY AND INDEPENDENCE. BED MOBILITY (PT/MONOLOGIST) PT/MONOLOGIST TO PROVIDE GAIT TRAINING FOR IMPROVED MOBILITY AND /OR TO NORMALIZE GAIT PATTERN THERAPEUTIC EXERCISES AND ESTABLISHING A HOME EXERCISE PROGRAM (PT/MONOLOGIST) PT/MONOLOGIST TO PROVIDE STAIR TRAINING PT / MONOLOGIST TO MONITOR AND EDUCATE ON OXYGEN SATURATION DURING ADLS/IADLS, NOTIFY PHYSICIAN AND/OR THE RN CLINICAL EXCELLENCE CONSULTANT FOR PHYSICIAN NOTIFICATION AND IF O2 SATS BELOW PHYSICIAN ORDERED PARAMETERS AFTER 10 MIN OF REST PT / MONOLOGIST TO OBSERVE FOR EARLY SIGNS AND SYMPTOMS OF DEPRESSION OR DEPRESSION GETTING WORSE AND TO EDUCATE ON HOW TO FIND HELP. PT / MONOLOGIST MAY EDUCATE ON PAIN MANAGEMENT CLINICALLY INDICATED, INCLUDING NON-PHARMACOLOGICAL PAIN REDUCTION TECHNIQUES PT / MONOLOGIST TO MONITOR FOR HYPO/HYPERGLYCEMIA AND CONDUCT ROUTINE FOOT INSPECTIONS. RECORD PATIENT REPORTED BLOOD SUGAR LEVELS AND NOTIFY PHYSICIAN AND/OR THE RN CLINICAL EXCELLENCE CONSULTANT FOR PHYSICIAN NOTIFICATION IF BLOOD SUGAR LEVELS ARE OUTSIDE ORDERED PARAMETERS. TEACH PATIENT/CAREGIVER ON DAILY FOOT INSPECTIONS PT / MONOLOGIST TO INSTRUCT PATIENT/CAREGIVER ON RISK FOR HOSPITALIZATION/EMERGENCY ROOM VISITS, TEACH SIGNS AND SYMPTOMS THAT PUT PATIENT AT RISK, WHEN TO NOTIFY NURSE/PHYSICIAN OF COMPLICATIONS/DECLINE, AND WHEN TO CALL 911. PT/MONOLOGIST TO EDUCATE ON ARTHRITIS SELF-MANAGEMENT PT / MONOLOGIST TO EDUCATE ON HEART FAILURE SELF-MANAGEMENT PT / MONOLOGIST TO EDUCATE ON HYPERTENSION SELF-MANAGEMENT PT TO ASSESS / MONOLOGIST TO MONITOR CARDIO/RESPIRATORY SYSTEM; AND NOTIFY THE PHYSICIAN AND/OR THE RN CLINICAL EXCELLENCE CONSULTANT FOR PHYSICIAN NOTIFICATION FOR EARLY SIGNS AND SYMPTOMS OF EXACERBATION OR DETERIORATION. PT / MONOLOGIST TO EDUCATE ON ATRIAL FIBRILLATION SELF-MANAGEMENT. PT / MONOLOGIST TO EDUCATE ON PNEUMONIA / ASPIRATION PNEUMONIA SELF-MANAGEMENT. PT/MONOLOGIST TO IDENTIFY FALL RISK FACTORS; EDUCATE THE PATIENT/CAREGIVER ON WAYS TO REDUCE FALL RISK FACTORS AND ESTABLISH HOME EXERCISE PROGRAM TO MINIMIZE FALL RISK. MAY TEACH THE PATIENT FLOOR RECOVERY WHEN CLINICALLY APPROPRIATE [code = PT TO EVALUATE, OBSERVE / ASSESS, AND MONITOR, MONOLOGIST TO OBSERVE AND MONITOR, PROVIDE SKILLED THERAPEUTIC INTERVENTION, ACTIVITY, EDUCATION, AND TRAINING TO ADDRESS GEN. WEAKNESS, POOR OVERALL ACTIVITY TOLERANCE, AND FUNCTIONAL LIMITATIONS IMPACTING SAFETY AND INDEPENDENCE. BED MOBILITY (PT/MONOLOGIST) PT/MONOLOGIST TO PROVIDE GAIT TRAINING FOR IMPROVED MOBILITY AND /OR TO NORMALIZE GAIT PATTERN THERAPEUTIC EXERCISES AND ESTABLISHING A HOME EXERCISE PROGRAM (PT/MONOLOGIST) PT/MONOLOGIST TO PROVIDE STAIR TRAINING PT / MONOLOGIST TO MONITOR AND EDUCATE ON OXYGEN SATURATION DURING ADLS/IADLS, NOTIFY PHYSICIAN AND/OR THE RN CLINICAL EXCELLENCE CONSULTANT FOR PHYSICIAN NOTIFICATION AND IF O2 SATS BELOW PHYSICIAN ORDERED PARAMETERS AFTER 10 MIN OF REST PT / MONOLOGIST TO OBSERVE FOR EARLY SIGNS AND SYMPTOMS OF DEPRESSION OR DEPRESSION GETTING WORSE AND TO EDUCATE ON HOW TO FIND HELP. PT / MONOLOGIST MAY EDUCATE ON PAIN MANAGEMENT CLINICALLY INDICATED, INCLUDING NON-PHARMACOLOGICAL PAIN REDUCTION TECHNIQUES PT / MONOLOGIST TO MONITOR FOR HYPO/HYPERGLYCEMIA AND CONDUCT ROUTINE FOOT INSPECTIONS. RECORD PATIENT REPORTED BLOOD SUGAR LEVELS AND NOTIFY PHYSICIAN AND/OR THE RN CLINICAL EXCELLENCE CONSULTANT FOR PHYSICIAN NOTIFICATION IF BLOOD SUGAR LEVELS ARE OUTSIDE ORDERED PARAMETERS. TEACH PATIENT/CAREGIVER ON DAILY FOOT INSPECTIONS PT / MONOLOGIST TO INSTRUCT PATIENT/CAREGIVER ON RISK FOR HOSPITALIZATION/EMERGENCY ROOM VISITS, TEACH SIGNS AND SYMPTOMS THAT PUT PATIENT AT RISK, WHEN TO NOTIFY NURSE/PHYSICIAN OF COMPLICATIONS/DECLINE, AND WHEN TO CALL 911. PT/MONOLOGIST TO EDUCATE ON ARTHRITIS SELF-MANAGEMENT PT / MONOLOGIST TO EDUCATE ON HEART FAILURE SELF-MANAGEMENT PT / MONOLOGIST TO EDUCATE ON HYPERTENSION SELF-MANAGEMENT PT TO ASSESS / MONOLOGIST TO MONITOR CARDIO/RESPIRATORY SYSTEM; AND NOTIFY THE PHYSICIAN AND/OR THE RN CLINICAL EXCELLENCE CONSULTANT FOR PHYSICIAN NOTIFICATION FOR EARLY SIGNS AND SYMPTOMS OF EXACERBATION OR DETERIORATION. PT / MONOLOGIST TO EDUCATE ON ATRIAL FIBRILLATION SELF-MANAGEMENT. PT / MONOLOGIST TO EDUCATE ON PNEUMONIA / ASPIRATION PNEUMONIA SELF-MANAGEMENT. PT/MONOLOGIST TO IDENTIFY FALL RISK FACTORS; EDUCATE THE PATIENT/CAREGIVER ON WAYS TO REDUCE FALL RISK FACTORS AND ESTABLISH HOME EXERCISE PROGRAM TO MINIMIZE FALL RISK. MAY TEACH THE PATIENT FLOOR RECOVERY WHEN CLINICALLY APPROPRIATE] Future Scheduled Test AGENCY MAY PERFORM A RESUMPTION OF CARE VISIT FOLLOWING ANY HOSPITAL ADMISSION. OT TO EVALUATE, OBSERVE / ASSESS, AND MONITOR, PARTS COUNTER ASSOCIATE TO OBSERVE AND MONITOR, PROVIDE SKILLED THERAPEUTIC INTERVENTION, ACTIVITY, EDUCATION, AND TRAINING TO ADDRESS SAFETY AND INDEPENDENCE OF ADLS AND FUNCTIONAL TRANSFERS IN HOME ENVIRONMENT. ACTIVITIES OF DAILY LIVING (OT/MARIANNE) THERAPEUTIC EXERCISE (OT/PARTS COUNTER ASSOCIATE) ENERGY CONSERVATION/ACTIVITY DEMAND (OT/PARTS COUNTER ASSOCIATE) OT/PARTS COUNTER ASSOCIATE TO MONITOR AND EDUCATE ON OXYGEN SATURATION DURING ADLS/IADLS, NOTIFY PHYSICIAN AND/OR THE RN CLINICAL EXCELLENCE CONSULTANT FOR PHYSICIAN NOTIFICATION AND IF O2 SATS BELOW 90% AFTER 10 MIN OF REST. OT / PARTS COUNTER ASSOCIATE TO IDENTIFY FALL RISK FACTORS; EDUCATE THE PATIENT/CAREGIVER ON WAYS TO REDUCE FALL RISK FACTORS AND ESTABLISH HOME EXERCISE PROGRAM TO MINIMIZE FALL RISK. MAY TEACH THE PATIENT FLOOR RECOVERY WHEN CLINICALLY APPROPRIATE. OT/PARTS COUNTER ASSOCIATE TO EDUCATE ON HYPERTENSION SELF-MANAGEMENT OT/MARIANNE TO EDUCATE ON ATRIAL FIBRILLATION SELF-MANAGEMENT. [code = AGENCY MAY PERFORM A RESUMPTION OF CARE VISIT FOLLOWING ANY HOSPITAL ADMISSION. OT TO EVALUATE, OBSERVE / ASSESS, AND MONITOR, PARTS COUNTER ASSOCIATE TO OBSERVE AND MONITOR, PROVIDE SKILLED THERAPEUTIC INTERVENTION, ACTIVITY, EDUCATION, AND TRAINING TO ADDRESS SAFETY AND INDEPENDENCE OF ADLS AND FUNCTIONAL TRANSFERS IN HOME ENVIRONMENT. ACTIVITIES OF DAILY LIVING (OT/MARIANNE) THERAPEUTIC EXERCISE (OT/PARTS COUNTER ASSOCIATE) ENERGY CONSERVATION/ACTIVITY DEMAND (OT/MARIANNE) OT/PARTS COUNTER ASSOCIATE TO MONITOR AND EDUCATE ON OXYGEN SATURATION DURING ADLS/IADLS, NOTIFY PHYSICIAN AND/OR THE RN CLINICAL EXCELLENCE CONSULTANT FOR PHYSICIAN NOTIFICATION AND IF O2 SATS BELOW 90% AFTER 10 MIN OF REST. OT / MARIANNE TO IDENTIFY FALL RISK FACTORS; EDUCATE THE PATIENT/CAREGIVER ON WAYS TO REDUCE FALL RISK FACTORS AND ESTABLISH HOME EXERCISE PROGRAM TO MINIMIZE FALL RISK. MAY TEACH THE PATIENT FLOOR RECOVERY WHEN CLINICALLY APPROPRIATE. OT/PARTS COUNTER ASSOCIATE TO EDUCATE ON HYPERTENSION SELF-MANAGEMENT OT/MARIANNE TO [...] OF SKIN INTEGRITY ISSUES FROM [place] WITHIN 2 WKS. PT STG: PATIENT WILL [...] TO SAFELY NEGOTIATE STAIRS FROM [place] WITH 2 STEPS W/O HANDRAIL VIA FRONT [...] 2025-04-07 00:00:00 Outpatient NEW ADMISSION [facility] [id number]
--- OUTSIDE RECORDS SUMMARY | 2025-04-06 18:00 | XMS_ITS | Clinical Summary ---
Author Organization Unknown Care Team Providers Care Dot Compliance Manager Name Role Phone DIGNA ARIEL, ESTRELLA Unavailable Unava dinora STOKES RN, FRANKIE Unavailable Unavailabl e KARI PT, DIDI Unavailable Unavailable NAT TEXTILE DYER, GAUDENCIO Unavailable Unavailabl e RADHA OT, ROLANDO Unavailable Unavailable JOANNE STEVEN, HATTIE Unavailable Unavailable Payers Payer Name Policy Type Policy Number Effective Date Expira tion Date MEDICARE.[facility] [id number] Problems Condition Name Condition Details Condition Category Status Onset Date Resolution Date Last Treatment Date Treating Clinician Comments 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 02-07 [...] OF PNEUMONIA (RECURRENT) Active 02-07 00:00: 00 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) USE OF SYSTEMIC STEROIDS Active 02-07 [...] 80 mg tablet 02-07 00:00: 00 Yes [id number] CHOLESTEROL 1 tablet DAILY 1 tablet DAILY (route: oral) Med Classific ation: Cardiovas cular Therapy Agents digoxin 125 mcg (0.125 mg) tablet 02-07 00:00: 00 02-21 23:59 :00 No [id number] HEART RHYTHM 1 tablet DAILY 1 tablet DAILY (route: oral) Med Classific ation: Cardiovas cular Therapy Agents escitalopra m 10 mg tablet 02-07 00:00: 00 Yes [id number] MOOD 1 tablet DAILY 1 tablet DAILY (route: oral) Med Classific ation: Central Nervous System Agents ezetimibe 10 mg tablet 02-07 00:00: 00 Yes [id number] CHOLESTEROL 1 tablet DAILY 1 tablet DAILY (route: oral) Med Classific ation: Cardiovas cular Therapy Agents metoprolol succinate ER 25 mg tablet,exte nded release 24 hr 02-07 00:00: 00 02-21 23:59 :00 No [id number] BLOOD PRESSURE 0.5 tablet DAILY 0.5 tablet DAILY (route: oral) Med Classific ation: Cardiovas cular Therapy Agents pantoprazol e 40 mg tablet,joão yed release 02-07 00:00: 00 02-21 23:59 :00 No [id number] STOMACH ACID 1 tablet DAILY 1 tablet DAILY (route: oral) Med Classific ation: Gastroint estinal Therapy Agents prednisone 5 mg tablet 02-07 00:00: 00 Yes [id number] ADRENAL INSUFFICIEN CY 1 tablet DAILY 1 tablet DAILY (route: oral) Med Classific ation: Endocrine spironolact one 25 mg tablet 02-07 00:00: 00 Yes [id number] FLUID RETENTION 0.5 tablet DAILY 0.5 tablet DAILY (route: oral) Med Classific ation: Cardiovas cular Therapy Agents tamsulosin 0.4 mg capsule 02-07 00:00: 00 02-21 23:59 :00 No [id number] URINARY HEALTH 1 capsule DAILY 1 capsule DAILY (route: oral) Med Classific ation: Genitouri nary Therapy acetaminoph en 325 mg tablet 2024-05 00:00: 00 Yes [id number] PAIN 2 tablet 2 TIMES DAILY 2 tablet 2 TIMES DAILY (route: oral) Med Classific ation: Analgesic , Anti-infl ammatory or Antipyret ic aspirin 81 mg tablet 2024-05 00:00: 00 Yes [id number] ANTICOAGULA NT 1 tablet DAILY 1 tablet DAILY (route: oral) Med Classific ation: Hematolog ical Agents ipratropium 0.5 mg-albutero l 3 mg (2.5 mg base)/3 mL nebulizatio n soln 2024-05 00:00: 00 Yes [id number] COPD 3 mL EVERY 6 HOURS 3 mL EVERY 6 HOURS (route: inhalation ) Med Classific ation: Respirato ry Therapy Agents Lanoxin 62.5 mcg (0.0625 mg) tablet 2024-05 00:00: 00 Yes [id number] CHF 1 tablet DAILY 1 tablet DAILY (route: oral) Med Classific ation: Cardiovas cular Therapy Agents Lasix 20 mg tablet 2024-05 00:00: 00 Yes [id number] CHF 1 tablet DAILY 1 tablet DAILY (route: oral) Med Classific ation: Cardiovas cular Therapy Agents Toprol XL 25 mg tablet,exte nded release 2024-05 00:00: 00 Yes [id number] BP 25 mg DAILY 25 mg DAILY [...] SYSTEM MANAGEMENT; RN TO ASSESS AND TEACH, NEWSPAPER ILLUSTRATOR/BAG PATCHER TO OBSERVE AND TEACH RELATED TO ALTERED RESPIRATORY STATUS TO MINIMIZE COMPLICATIONS AND REDUCE HOSPITALIZATION. [code = SN 1WK9 PT 1WK1 OT EFFECTIVE 02/10/2025K1 RESPIRATORY SYSTEM MANAGEMENT; RN TO ASSESS AND TEACH, NEWSPAPER ILLUSTRATOR/BAG PATCHER TO OBSERVE AND TEACH RELATED TO ALTERED RESPIRATORY STATUS TO MINIMIZE COMPLICATIONS AND REDUCE HOSPITALIZATION.] Future Scheduled Test TRACHEOSTO MY CARE MANAGEMENT; RN/NEWSPAPER ILLUSTRATOR/BAG PATCHER TO INSTRUCT PATIENT/CAREGIVER ON CARE AND MANAGEMENT OF TRACHEOSTOMY. RN/ NEWSPAPER ILLUSTRATOR/BAG PATCHER TO PROVIDE SKILLED TEACHING ON TRACH COLLAR SUCTIONING PRN WITH 14 FR SUCTION CATHETER PER PATIENT TRACH CARE WITH INNER CANNULA: REMOVE INNER CANNULA, CLEANSE WITH NORMAL SALINE AND OR STERILE WATER AND REINSERT NON-DISPOSABLE CANNULA SIZE OF INNER CANNULA 5 BROOKS [code = TRACHEOSTOMY CARE MANAGEMENT; RN/NEWSPAPER ILLUSTRATOR/BAG PATCHER TO INSTRUCT PATIENT/CAREGIVER ON CARE AND MANAGEMENT OF TRACHEOSTOMY. RN/ NEWSPAPER ILLUSTRATOR/BAG PATCHER TO PROVIDE SKILLED TEACHING ON TRACH COLLAR SUCTIONING PRN WITH 14 FR SUCTION CATHETER PER PATIENT TRACH CARE WITH INNER CANNULA: REMOVE INNER CANNULA, CLEANSE WITH NORMAL SALINE AND OR STERILE WATER AND REINSERT NON-DISPOSABLE CANNULA SIZE OF INNER CANNULA 5 BROOKS] Future Scheduled Test FALL REDUC TION MANAGEMENT; RN TO ASSESS AND OBSERVE, NEWSPAPER ILLUSTRATOR/BAG PATCHER TO OBSERVE FALL RISK FACTORS AND EDUCATE PATIENT/CAREGIVER ON STRATEGIES TO MINIMIZE THE RISK OF FALLING. [code = FALL REDUCTION MANAGEMENT; RN TO ASSESS AND OBSERVE, NEWSPAPER ILLUSTRATOR/BAG PATCHER TO OBSERVE FALL RISK FACTORS AND EDUCATE PATIENT/CAREGIVER ON STRATEGIES TO MINIMIZE THE RISK OF FALLING.] Future Scheduled Test ANEMIA MAN AGEMENT; RN TO ASSESS AND TEACH, BAG PATCHER/NEWSPAPER ILLUSTRATOR TO OBSERVE AND TEACH AND PROVIDE EDUCATION ON ANEMIA. [code = ANEMIA MANAGEMENT; RN TO ASSESS AND TEACH, BAG PATCHER/NEWSPAPER ILLUSTRATOR TO OBSERVE AND TEACH AND PROVIDE EDUCATION ON ANEMIA.] Future Scheduled Test RN TO OBSE RVE, ASSESS, EVALUATE, AND DEVELOP AN INDIVIDUALIZED PLAN OF CARE. AGENCY MAY ACCEPT ORDERS FROM CONSULTING PHYSICIANS RN TO OBSERVE AND ASSESS, NEWSPAPER ILLUSTRATOR/BAG PATCHER TO OBSERVE FOR RISK FOR FALLS AND INSTRUCT IN FALL PREVENTION, HOME SAFETY, MEDICATION MANAGEMENT, INFECTION PREVENTION, AND NUTRITION MANAGEMENT. RN/NEWSPAPER ILLUSTRATOR/BAG PATCHER NURSE MAY PERFORM O2 SATURATION LEVEL ON ADMISSION AND PRN FOR RN TO ASSESS/NEWSPAPER ILLUSTRATOR TO OBSERVE PATIENT, WITH NOTIFICATION TO THE PHYSICIAN IF SATURATION IS 90% IN THE ABSENCE OF MORE SPECIFIC PARAMETERS FROM THE PHYSICIAN. AGENCY MAY PERFORM A RESUMPTION OF CARE VISIT FOLLOWING ANY HOSPITAL ADMISSION. RN/NEWSPAPER ILLUSTRATOR/BAG PATCHER TO MONITOR CO-MORBID CONDITIONS LISTED ON THE PLAN OF CARE AND ANY NEW CONDITIONS THAT PRESENT THEMSELVES DURING THIS EPISODE TO IDENTIFY CHANGES AND INTERVENE TO MINIMIZE COMPLICATIONS. [code = RN TO OBSERVE, ASSESS, EVALUATE, AND DEVELOP AN INDIVIDUALIZED PLAN OF CARE. AGENCY MAY ACCEPT ORDERS FROM CONSULTING PHYSICIANS RN TO OBSERVE AND ASSESS, NEWSPAPER ILLUSTRATOR/BAG PATCHER TO OBSERVE FOR RISK FOR FALLS AND INSTRUCT IN FALL PREVENTION, HOME SAFETY, MEDICATION MANAGEMENT, INFECTION PREVENTION, AND NUTRITION MANAGEMENT. RN/NEWSPAPER ILLUSTRATOR/BAG PATCHER NURSE MAY PERFORM O2 SATURATION LEVEL ON ADMISSION AND PRN FOR RN TO ASSESS/NEWSPAPER ILLUSTRATOR TO OBSERVE PATIENT, WITH NOTIFICATION TO THE PHYSICIAN IF SATURATION IS 90% IN THE ABSENCE OF MORE SPECIFIC PARAMETERS FROM THE PHYSICIAN. AGENCY MAY PERFORM A RESUMPTION OF CARE VISIT FOLLOWING ANY HOSPITAL ADMISSION. RN/NEWSPAPER ILLUSTRATOR/BAG PATCHER TO MONITOR CO-MORBID CONDITIONS LISTED ON THE PLAN OF CARE AND ANY NEW CONDITIONS THAT PRESENT THEMSELVES DURING THIS EPISODE TO IDENTIFY CHANGES AND INTERVENE TO MINIMIZE COMPLICATIONS.] Future Scheduled Test PAIN MANAG EMENT; RN TO ASSESS AND TEACH, BAG PATCHER/NEWSPAPER ILLUSTRATOR TO OBSERVE AND TEACH AND PROVIDE EDUCATION ON PAIN MANAGEMENT TECHNIQUES. [code = PAIN MANAGEMENT; RN TO ASSESS AND TEACH, BAG PATCHER/NEWSPAPER ILLUSTRATOR TO OBSERVE AND TEACH AND PROVIDE EDUCATION ON PAIN MANAGEMENT TECHNIQUES.] Future Scheduled Test RISK FOR H OSPITALIZATION; RN TO ASSESS/TEACH, BAG PATCHER/NEWSPAPER ILLUSTRATOR TO OBSERVE/TEACH PATIENT/CAREGIVER ON RISK FOR HOSPITALIZATION/EMERGENCY ROOM VISITS, TEACH SIGNS AND SYMPTOMS THAT PUT PATIENT AT RISK, WHEN TO NOTIFY NURSE/PHYSICIAN OF COMPLICATIONS/DECLINE, AND WHEN TO CALL 911. [code = RISK FOR HOSPITALIZATION; RN TO ASSESS/TEACH, BAG PATCHER/NEWSPAPER ILLUSTRATOR TO OBSERVE/TEACH PATIENT/CAREGIVER ON RISK FOR HOSPITALIZATION/EMERGENCY ROOM VISITS, TEACH SIGNS AND SYMPTOMS THAT PUT PATIENT AT RISK, WHEN TO NOTIFY NURSE/PHYSICIAN OF COMPLICATIONS/DECLINE, AND WHEN TO CALL 911.] Future Scheduled Test CARDIOVASC ULAR SYSTEM; RN TO ASSESS/TEACH, NEWSPAPER ILLUSTRATOR/BAG PATCHER TO OBSERVE/TEACH RELATED TO ALTERED CARDIOVASCULAR STATUS TO MINIMIZE COMPLICATIONS AND REDUCE HOSPITALIZATION. [code = CARDIOVASCULAR SYSTEM; RN TO ASSESS/TEACH, NEWSPAPER ILLUSTRATOR/BAG PATCHER TO OBSERVE/TEACH RELATED TO ALTERED CARDIOVASCULAR STATUS TO MINIMIZE COMPLICATIONS AND REDUCE HOSPITALIZATION.] Future Scheduled Test HYPERTENSI ON MANAGEMENT; RN TO ASSESS AND TEACH, NEWSPAPER ILLUSTRATOR/BAG PATCHER TO OBSERVE AND TEACH WARNING SIGNS AND SYMPTOMS TO AVOID HOSPITALIZATION. [code = HYPERTENSION MANAGEMENT; RN TO ASSESS AND TEACH, NEWSPAPER ILLUSTRATOR/BAG PATCHER TO OBSERVE AND TEACH WARNING SIGNS AND SYMPTOMS TO AVOID HOSPITALIZATION.] Future Scheduled Test HEART FAIL URE MONITORING RN/BAG PATCHER/NEWSPAPER ILLUSTRATOR TO MONITOR PATIENT FOR SIGNS AND SYMPTOMS OF HEART FAILURE EXACERBATION, MONITOR FOR ADHERENCE WITH MEDICATION AND HEART FAILURE MANAGEMENT REGIMEN. [code = HEART FAILURE MONITORING RN/BAG PATCHER/NEWSPAPER ILLUSTRATOR TO MONITOR PATIENT FOR SIGNS AND SYMPTOMS OF HEART FAILURE EXACERBATION, MONITOR FOR ADHERENCE WITH MEDICATION AND HEART FAILURE MANAGEMENT REGIMEN.] Future Scheduled Test DIABETES M ONITORING RN/BAG PATCHER/NEWSPAPER ILLUSTRATOR TO MONITOR BLOOD SUGAR LOG FOR BLOOD SUGAR READINGS THAT ARE BEING CHECKED BY PATIENT, CAREGIVER NEEDED FOR SIGNS AND SYMPTOMS OF HYPER/HYPOGLYCEMIA. PATIENT THERAPEUTIC BLOOD SUGAR PARAMETERS ARE 70 - 300. REPORT BLOOD SUGARS OUT OF RANGE TO PHYSICIAN. NURSE MAY PERFORM FINGER STICK BLOOD GLUCOSE NEEDED FOR SIGNS AND SYMPTOMS OF HYPO AND HYPERGLYCEMIA. RN/BAG PATCHER/NEWSPAPER ILLUSTRATOR TO MONITOR ADHERENCE OF PATIENT/CAREGIVER PERFORMING DIABETIC FOOT CARE AND MAY PERFORM DIABETIC FOOT CARE PRN. RN/BAG PATCHER/NEWSPAPER ILLUSTRATOR TO MONITOR FOR ADHERENCE TO DIABETIC SELF-CARE AND MANAGEMENT INCLUDING MEDICATIONS. [code = DIABETES MONITORING RN/BAG PATCHER/NEWSPAPER ILLUSTRATOR TO MONITOR BLOOD SUGAR LOG FOR BLOOD SUGAR READINGS THAT ARE BEING CHECKED BY PATIENT, CAREGIVER NEEDED FOR SIGNS AND SYMPTOMS OF HYPER/HYPOGLYCEMIA. PATIENT THERAPEUTIC BLOOD SUGAR PARAMETERS ARE 70 - 300. REPORT BLOOD SUGARS OUT OF RANGE TO PHYSICIAN. NURSE MAY PERFORM FINGER STICK BLOOD GLUCOSE NEEDED FOR SIGNS AND SYMPTOMS OF HYPO AND HYPERGLYCEMIA. RN/BAG PATCHER/NEWSPAPER ILLUSTRATOR TO MONITOR ADHERENCE OF PATIENT/CAREGIVER PERFORMING DIABETIC FOOT CARE AND MAY PERFORM DIABETIC FOOT CARE PRN. RN/BAG PATCHER/NEWSPAPER ILLUSTRATOR TO MONITOR FOR ADHERENCE TO DIABETIC SELF-CARE AND MANAGEMENT INCLUDING MEDICATIONS.] Future Scheduled Test HYPOTENSIO N MANAGEMENT; RN TO ASSESS AND TEACH/ NEWSPAPER ILLUSTRATOR /BAG PATCHER TO OBSERVE AND TEACH WARNING SIGNS AND SYMPTOMS TO AVOID HOSPITALIZATION. [code = HYPOTENSION MANAGEMENT; RN TO ASSESS AND TEACH/ NEWSPAPER ILLUSTRATOR /BAG PATCHER TO OBSERVE AND TEACH WARNING SIGNS AND SYMPTOMS TO AVOID HOSPITALIZATION.] Future Scheduled Test ARRHYTHMIA MANAGEMENT; RN TO ASSESS AND TEACH, NEWSPAPER ILLUSTRATOR/BAG PATCHER TO OBSERVE AND TEACH WARNING SIGNS AND SYMPTOMS TO AVOID HOSPITALIZATION. [code = ARRHYTHMIA MANAGEMENT; RN TO ASSESS AND TEACH, NEWSPAPER ILLUSTRATOR/BAG PATCHER TO OBSERVE AND TEACH WARNING SIGNS AND SYMPTOMS TO AVOID HOSPITALIZATION.] Future Scheduled Test MEDICATION MANAGEMENT; RN/NEWSPAPER ILLUSTRATOR/BAG PATCHER TO REVIEW MEDICATIONS FOR INTERACTIONS, EFFECTIVENESS OF DRUG THERAPY, AND SIGNS/SYMPTOMS OF ADVERSE REACTIONS. MAY INSTRUCT AND REINFORCE MEDICATION TEACHING RELATED TO THE USE OF MEDICATIONS, DOSAGE, FREQUENCY, PURPOSE, SIDE EFFECTS, AND TO REPORT COMPLICATIONS. [code = MEDICATION MANAGEMENT; RN/NEWSPAPER ILLUSTRATOR/BAG PATCHER TO REVIEW MEDICATIONS FOR INTERACTIONS, EFFECTIVENESS OF [...] EVAL UATE, OBSERVE / ASSESS, AND MONITOR, TEXTILE DYER TO OBSERVE AND MONITOR, PROVIDE SKILLED THERAPEUTIC INTERVENTION, ACTIVITY, EDUCATION, AND TRAINING TO ADDRESS GEN. WEAKNESS, POOR OVERALL ACTIVITY TOLERANCE, AND FUNCTIONAL LIMITATIONS IMPACTING SAFETY AND INDEPENDENCE. BED MOBILITY (PT/TEXTILE DYER) PT/TEXTILE DYER TO PROVIDE GAIT TRAINING FOR IMPROVED MOBILITY AND /OR TO NORMALIZE GAIT PATTERN THERAPEUTIC EXERCISES AND ESTABLISHING A HOME EXERCISE PROGRAM (PT/TEXTILE DYER) PT/TEXTILE DYER TO PROVIDE STAIR TRAINING PT / TEXTILE DYER TO MONITOR AND EDUCATE ON OXYGEN SATURATION DURING ADLS/IADLS, NOTIFY PHYSICIAN AND/OR THE RN CLINICAL KILN TENDER FOR PHYSICIAN NOTIFICATION AND IF O2 SATS BELOW PHYSICIAN ORDERED PARAMETERS AFTER 10 MIN OF REST PT / TEXTILE DYER TO OBSERVE FOR EARLY SIGNS AND SYMPTOMS OF DEPRESSION OR DEPRESSION GETTING WORSE AND TO EDUCATE ON HOW TO FIND HELP. PT / TEXTILE DYER MAY EDUCATE ON PAIN MANAGEMENT CLINICALLY INDICATED, INCLUDING NON-PHARMACOLOGICAL PAIN REDUCTION TECHNIQUES PT / TEXTILE DYER TO MONITOR FOR HYPO/HYPERGLYCEMIA AND CONDUCT ROUTINE FOOT INSPECTIONS. RECORD PATIENT REPORTED BLOOD SUGAR LEVELS AND NOTIFY PHYSICIAN AND/OR THE RN CLINICAL KILN TENDER FOR PHYSICIAN NOTIFICATION IF BLOOD SUGAR LEVELS ARE OUTSIDE ORDERED PARAMETERS. TEACH PATIENT/CAREGIVER ON DAILY FOOT INSPECTIONS PT / TEXTILE DYER TO INSTRUCT PATIENT/CAREGIVER ON RISK FOR HOSPITALIZATION/EMERGENCY ROOM VISITS, TEACH SIGNS AND SYMPTOMS THAT PUT PATIENT AT RISK, WHEN TO NOTIFY NURSE/PHYSICIAN OF COMPLICATIONS/DECLINE, AND WHEN TO CALL 911. PT/TEXTILE DYER TO EDUCATE ON ARTHRITIS SELF-MANAGEMENT PT / TEXTILE DYER TO EDUCATE ON HEART FAILURE SELF-MANAGEMENT PT / TEXTILE DYER TO EDUCATE ON HYPERTENSION SELF-MANAGEMENT PT TO ASSESS / TEXTILE DYER TO MONITOR CARDIO/RESPIRATORY SYSTEM; AND NOTIFY THE PHYSICIAN AND/OR THE RN CLINICAL KILN TENDER FOR PHYSICIAN NOTIFICATION FOR EARLY SIGNS AND SYMPTOMS OF EXACERBATION OR DETERIORATION. PT / TEXTILE DYER TO EDUCATE ON ATRIAL FIBRILLATION SELF-MANAGEMENT. PT / TEXTILE DYER TO EDUCATE ON PNEUMONIA / ASPIRATION PNEUMONIA SELF-MANAGEMENT. PT/TEXTILE DYER TO IDENTIFY FALL RISK FACTORS; EDUCATE THE PATIENT/CAREGIVER ON WAYS TO REDUCE FALL RISK FACTORS AND ESTABLISH HOME EXERCISE PROGRAM TO MINIMIZE FALL RISK. MAY TEACH THE PATIENT FLOOR RECOVERY WHEN CLINICALLY APPROPRIATE [code = PT TO EVALUATE, OBSERVE / ASSESS, AND MONITOR, TEXTILE DYER TO OBSERVE AND MONITOR, PROVIDE SKILLED THERAPEUTIC INTERVENTION, ACTIVITY, EDUCATION, AND TRAINING TO ADDRESS GEN. WEAKNESS, POOR OVERALL ACTIVITY TOLERANCE, AND FUNCTIONAL LIMITATIONS IMPACTING SAFETY AND INDEPENDENCE. BED MOBILITY (PT/TEXTILE DYER) PT/TEXTILE DYER TO PROVIDE GAIT TRAINING FOR IMPROVED MOBILITY AND /OR TO NORMALIZE GAIT PATTERN THERAPEUTIC EXERCISES AND ESTABLISHING A HOME EXERCISE PROGRAM (PT/TEXTILE DYER) PT/TEXTILE DYER TO PROVIDE STAIR TRAINING PT / TEXTILE DYER TO MONITOR AND EDUCATE ON OXYGEN SATURATION DURING ADLS/IADLS, NOTIFY PHYSICIAN AND/OR THE RN CLINICAL KILN TENDER FOR PHYSICIAN NOTIFICATION AND IF O2 SATS BELOW PHYSICIAN ORDERED PARAMETERS AFTER 10 MIN OF REST PT / TEXTILE DYER TO OBSERVE FOR EARLY SIGNS AND SYMPTOMS OF DEPRESSION OR DEPRESSION GETTING WORSE AND TO EDUCATE ON HOW TO FIND HELP. PT / TEXTILE DYER MAY EDUCATE ON PAIN MANAGEMENT CLINICALLY INDICATED, INCLUDING NON-PHARMACOLOGICAL PAIN REDUCTION TECHNIQUES PT / TEXTILE DYER TO MONITOR FOR HYPO/HYPERGLYCEMIA AND CONDUCT ROUTINE FOOT INSPECTIONS. RECORD PATIENT REPORTED BLOOD SUGAR LEVELS AND NOTIFY PHYSICIAN AND/OR THE RN CLINICAL KILN TENDER FOR PHYSICIAN NOTIFICATION IF BLOOD SUGAR LEVELS ARE OUTSIDE ORDERED PARAMETERS. TEACH PATIENT/CAREGIVER ON DAILY FOOT INSPECTIONS PT / TEXTILE DYER TO INSTRUCT PATIENT/CAREGIVER ON RISK FOR HOSPITALIZATION/EMERGENCY ROOM VISITS, TEACH SIGNS AND SYMPTOMS THAT PUT PATIENT AT RISK, WHEN TO NOTIFY NURSE/PHYSICIAN OF COMPLICATIONS/DECLINE, AND WHEN TO CALL 911. PT/TEXTILE DYER TO EDUCATE ON ARTHRITIS SELF-MANAGEMENT PT / TEXTILE DYER TO EDUCATE ON HEART FAILURE SELF-MANAGEMENT PT / TEXTILE DYER TO EDUCATE ON HYPERTENSION SELF-MANAGEMENT PT TO ASSESS / TEXTILE DYER TO MONITOR CARDIO/RESPIRATORY SYSTEM; AND NOTIFY THE PHYSICIAN AND/OR THE RN CLINICAL KILN TENDER FOR PHYSICIAN NOTIFICATION FOR EARLY SIGNS AND SYMPTOMS OF EXACERBATION OR DETERIORATION. PT / TEXTILE DYER TO EDUCATE ON ATRIAL FIBRILLATION SELF-MANAGEMENT. PT / TEXTILE DYER TO EDUCATE ON PNEUMONIA / ASPIRATION PNEUMONIA SELF-MANAGEMENT. PT/TEXTILE DYER TO IDENTIFY FALL RISK FACTORS; EDUCATE THE PATIENT/CAREGIVER ON WAYS TO REDUCE FALL RISK FACTORS AND ESTABLISH HOME EXERCISE PROGRAM TO MINIMIZE FALL RISK. MAY TEACH THE PATIENT FLOOR RECOVERY WHEN CLINICALLY APPROPRIATE] Future Scheduled Test AGENCY MAY PERFORM A RESUMPTION OF CARE VISIT FOLLOWING ANY HOSPITAL ADMISSION. OT TO EVALUATE, OBSERVE / ASSESS, AND MONITOR, PIPELINE MAINTENANCE SUPERVISOR TO OBSERVE AND MONITOR, PROVIDE SKILLED THERAPEUTIC INTERVENTION, ACTIVITY, EDUCATION, AND TRAINING TO ADDRESS SAFETY AND INDEPENDENCE OF ADLS AND FUNCTIONAL TRANSFERS IN HOME ENVIRONMENT. ACTIVITIES OF DAILY LIVING (OT/MARIANNE) THERAPEUTIC EXERCISE (OT/PIPELINE MAINTENANCE SUPERVISOR) ENERGY CONSERVATION/ACTIVITY DEMAND (OT/PIPELINE MAINTENANCE SUPERVISOR) OT/PIPELINE MAINTENANCE SUPERVISOR TO MONITOR AND EDUCATE ON OXYGEN SATURATION DURING ADLS/IADLS, NOTIFY PHYSICIAN AND/OR THE RN CLINICAL KILN TENDER FOR PHYSICIAN NOTIFICATION AND IF O2 SATS BELOW 90% AFTER 10 MIN OF REST. OT / PIPELINE MAINTENANCE SUPERVISOR TO IDENTIFY FALL RISK FACTORS; EDUCATE THE PATIENT/CAREGIVER ON WAYS TO REDUCE FALL RISK FACTORS AND ESTABLISH HOME EXERCISE PROGRAM TO MINIMIZE FALL RISK. MAY TEACH THE PATIENT FLOOR RECOVERY WHEN CLINICALLY APPROPRIATE. OT/PIPELINE MAINTENANCE SUPERVISOR TO EDUCATE ON HYPERTENSION SELF-MANAGEMENT OT/MARIANNE TO EDUCATE ON ATRIAL FIBRILLATION SELF-MANAGEMENT. [code = AGENCY MAY PERFORM A RESUMPTION OF CARE VISIT FOLLOWING ANY HOSPITAL ADMISSION. OT TO EVALUATE, OBSERVE / ASSESS, AND MONITOR, PIPELINE MAINTENANCE SUPERVISOR TO OBSERVE AND MONITOR, PROVIDE SKILLED THERAPEUTIC INTERVENTION, ACTIVITY, EDUCATION, AND TRAINING TO ADDRESS SAFETY AND INDEPENDENCE OF ADLS AND FUNCTIONAL TRANSFERS IN HOME ENVIRONMENT. ACTIVITIES OF DAILY LIVING (OT/MARIANNE) THERAPEUTIC EXERCISE (OT/PIPELINE MAINTENANCE SUPERVISOR) ENERGY CONSERVATION/ACTIVITY DEMAND (OT/MARIANNE) OT/PIPELINE MAINTENANCE SUPERVISOR TO MONITOR AND EDUCATE ON OXYGEN SATURATION DURING ADLS/IADLS, NOTIFY PHYSICIAN AND/OR THE RN CLINICAL KILN TENDER FOR PHYSICIAN NOTIFICATION AND IF O2 SATS BELOW 90% AFTER 10 MIN OF REST. OT / MARIANNE TO IDENTIFY FALL RISK FACTORS; EDUCATE THE PATIENT/CAREGIVER ON WAYS TO REDUCE FALL RISK FACTORS AND ESTABLISH HOME EXERCISE PROGRAM TO MINIMIZE FALL RISK. MAY TEACH THE PATIENT FLOOR RECOVERY WHEN CLINICALLY APPROPRIATE. OT/PIPELINE MAINTENANCE SUPERVISOR TO EDUCATE ON HYPERTENSION SELF-MANAGEMENT OT/MARIANNE [...] End Date/Time Encounter Type Admission Type Attending [facility] Care Department Encounter ID Discharge Date Discharge Status Discharge Condition Discharge Reason Percent Goals Met 2025-02-07 00:00:00 2025-04-07 00:00:00 Outpatient NEW ADMISSION [facility] [id number]
--- OUTSIDE RECORDS SUMMARY | 2025-04-06 18:00 | XMS_ITS | Clinical Summary ---
Author Organization Unknown Care Team Providers Care Clerk General Name Role Phone DIGNA ARIEL, ESTRELLA Unavailable Unava dinora STOKES RN, FRANKIE Unavailable Unavailabl e KARI PT, DIDI Unavailable Unavailable NAT FLARER, GAUDENCIO Unavailable Unavailabl e RADHA OT, ROLANDO Unavailable Unavailable JOANNE STEVEN, HATTIE Unavailable Unavailable Payers Payer Name Policy Type Policy Number Effective Date Expira tion Date MEDICARE.[facility] [id number] Problems Condition Name Condition Details Condition Category Status Onset Date Resolution Date Last Treatment Date Treating Clinician Comments 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: 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 02-07 [...] OF PNEUMONIA (RECURRENT) Active 02-07 00:00: 00 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 Active 02-07 [...] 80 mg tablet 02-07 00:00: 00 Yes [id number] CHOLESTEROL 1 tablet DAILY 1 tablet DAILY (route: oral) Med Classific ation: Cardiovas cular Therapy Agents digoxin 125 mcg (0.125 mg) tablet 02-07 00:00: 00 02-21 23:59 :00 No [id number] HEART RHYTHM 1 tablet DAILY 1 tablet DAILY (route: oral) Med Classific ation: Cardiovas cular Therapy Agents escitalopra m 10 mg tablet 02-07 00:00: 00 Yes [id number] MOOD 1 tablet DAILY 1 tablet DAILY (route: oral) Med Classific ation: Central Nervous System Agents ezetimibe 10 mg tablet 02-07 00:00: 00 Yes [id number] CHOLESTEROL 1 tablet DAILY 1 tablet DAILY (route: oral) Med Classific ation: Cardiovas cular Therapy Agents metoprolol succinate ER 25 mg tablet,exte nded release 24 hr 02-07 00:00: 00 02-21 23:59 :00 No [id number] BLOOD PRESSURE 0.5 tablet DAILY 0.5 tablet DAILY (route: oral) Med Classific ation: Cardiovas cular Therapy Agents pantoprazol e 40 mg tablet,joão yed release 02-07 00:00: 00 02-21 23:59 :00 No [id number] STOMACH ACID 1 tablet DAILY 1 tablet DAILY (route: oral) Med Classific ation: Gastroint estinal Therapy Agents prednisone 5 mg tablet 02-07 00:00: 00 Yes [id number] ADRENAL INSUFFICIEN CY 1 tablet DAILY 1 tablet DAILY (route: oral) Med Classific ation: Endocrine spironolact one 25 mg tablet 02-07 00:00: 00 Yes [id number] FLUID RETENTION 0.5 tablet DAILY 0.5 tablet DAILY (route: oral) Med Classific ation: Cardiovas cular Therapy Agents tamsulosin 0.4 mg capsule 02-07 00:00: 00 02-21 23:59 :00 No [id number] URINARY HEALTH 1 capsule DAILY 1 capsule DAILY (route: oral) Med Classific ation: Genitouri nary Therapy acetaminoph en 325 mg tablet 2024-05 00:00: 00 Yes [id number] PAIN 2 tablet 2 TIMES DAILY 2 tablet 2 TIMES DAILY (route: oral) Med Classific ation: Analgesic , Anti-infl ammatory or Antipyret ic aspirin 81 mg tablet 2024-05 00:00: 00 Yes [id number] ANTICOAGULA NT 1 tablet DAILY 1 tablet DAILY (route: oral) Med Classific ation: Hematolog ical Agents ipratropium 0.5 mg-albutero l 3 mg (2.5 mg base)/3 mL nebulizatio n soln 2024-05 00:00: 00 Yes [id number] COPD 3 mL EVERY 6 HOURS 3 mL EVERY 6 HOURS (route: inhalation ) Med Classific ation: Respirato ry Therapy Agents Lanoxin 62.5 mcg (0.0625 mg) tablet 2024-05 00:00: 00 Yes [id number] CHF 1 tablet DAILY 1 tablet DAILY (route: oral) Med Classific ation: Cardiovas cular Therapy Agents Lasix 20 mg tablet 2024-05 00:00: 00 Yes [id number] CHF 1 tablet DAILY 1 tablet DAILY (route: oral) Med Classific ation: Cardiovas cular Therapy Agents Toprol XL 25 mg tablet,exte nded release 2024-05 00:00: 00 Yes [id number] BP 25 mg DAILY 25 mg DAILY [...] SYSTEM MANAGEMENT; RN TO ASSESS AND TEACH, FREIGHT CONDUCTOR/ASSEMBLER TRUCK TRAILER TO OBSERVE AND TEACH RELATED TO ALTERED RESPIRATORY STATUS TO MINIMIZE COMPLICATIONS AND REDUCE HOSPITALIZATION. [code = SN 1WK9 PT 1WK1 OT EFFECTIVE 02/10/2025K1 RESPIRATORY SYSTEM MANAGEMENT; RN TO ASSESS AND TEACH, FREIGHT CONDUCTOR/ASSEMBLER TRUCK TRAILER TO OBSERVE AND TEACH RELATED TO ALTERED RESPIRATORY STATUS TO MINIMIZE COMPLICATIONS AND REDUCE HOSPITALIZATION.] Future Scheduled Test TRACHEOSTO MY CARE MANAGEMENT; RN/FREIGHT CONDUCTOR/ASSEMBLER TRUCK TRAILER TO INSTRUCT PATIENT/CAREGIVER ON CARE AND MANAGEMENT OF TRACHEOSTOMY. RN/ FREIGHT CONDUCTOR/ASSEMBLER TRUCK TRAILER TO PROVIDE SKILLED TEACHING ON TRACH COLLAR SUCTIONING PRN WITH 14 FR SUCTION CATHETER PER PATIENT TRACH CARE WITH INNER CANNULA: REMOVE INNER CANNULA, CLEANSE WITH NORMAL SALINE AND OR STERILE WATER AND REINSERT NON-DISPOSABLE CANNULA SIZE OF INNER CANNULA 5 BROOKS [code = TRACHEOSTOMY CARE MANAGEMENT; RN/FREIGHT CONDUCTOR/ASSEMBLER TRUCK TRAILER TO INSTRUCT PATIENT/CAREGIVER ON CARE AND MANAGEMENT OF TRACHEOSTOMY. RN/ FREIGHT CONDUCTOR/ASSEMBLER TRUCK TRAILER TO PROVIDE SKILLED TEACHING ON TRACH COLLAR SUCTIONING PRN WITH 14 FR SUCTION CATHETER PER PATIENT TRACH CARE WITH INNER CANNULA: REMOVE INNER CANNULA, CLEANSE WITH NORMAL SALINE AND OR STERILE WATER AND REINSERT NON-DISPOSABLE CANNULA SIZE OF INNER CANNULA 5 BROOKS] Future Scheduled Test FALL REDUC TION MANAGEMENT; RN TO ASSESS AND OBSERVE, FREIGHT CONDUCTOR/ASSEMBLER TRUCK TRAILER TO OBSERVE FALL RISK FACTORS AND EDUCATE PATIENT/CAREGIVER ON STRATEGIES TO MINIMIZE THE RISK OF FALLING. [code = FALL REDUCTION MANAGEMENT; RN TO ASSESS AND OBSERVE, FREIGHT CONDUCTOR/ASSEMBLER TRUCK TRAILER TO OBSERVE FALL RISK FACTORS AND EDUCATE PATIENT/CAREGIVER ON STRATEGIES TO MINIMIZE THE RISK OF FALLING.] Future Scheduled Test ANEMIA MAN AGEMENT; RN TO ASSESS AND TEACH, ASSEMBLER TRUCK TRAILER/FREIGHT CONDUCTOR TO OBSERVE AND TEACH AND PROVIDE EDUCATION ON ANEMIA. [code = ANEMIA MANAGEMENT; RN TO ASSESS AND TEACH, ASSEMBLER TRUCK TRAILER/FREIGHT CONDUCTOR TO OBSERVE AND TEACH AND PROVIDE EDUCATION ON ANEMIA.] Future Scheduled Test RN TO OBSE RVE, ASSESS, EVALUATE, AND DEVELOP AN INDIVIDUALIZED PLAN OF CARE. AGENCY MAY ACCEPT ORDERS FROM CONSULTING PHYSICIANS RN TO OBSERVE AND ASSESS, FREIGHT CONDUCTOR/ASSEMBLER TRUCK TRAILER TO OBSERVE FOR RISK FOR FALLS AND INSTRUCT IN FALL PREVENTION, HOME SAFETY, MEDICATION MANAGEMENT, INFECTION PREVENTION, AND NUTRITION MANAGEMENT. RN/FREIGHT CONDUCTOR/ASSEMBLER TRUCK TRAILER NURSE MAY PERFORM O2 SATURATION LEVEL ON ADMISSION AND PRN FOR RN TO ASSESS/FREIGHT CONDUCTOR TO OBSERVE PATIENT, WITH NOTIFICATION TO THE PHYSICIAN IF SATURATION IS 90% IN THE ABSENCE OF MORE SPECIFIC PARAMETERS FROM THE PHYSICIAN. AGENCY MAY PERFORM A RESUMPTION OF CARE VISIT FOLLOWING ANY HOSPITAL ADMISSION. RN/FREIGHT CONDUCTOR/ASSEMBLER TRUCK TRAILER TO MONITOR CO-MORBID CONDITIONS LISTED ON THE PLAN OF CARE AND ANY NEW CONDITIONS THAT PRESENT THEMSELVES DURING THIS EPISODE TO IDENTIFY CHANGES AND INTERVENE TO MINIMIZE COMPLICATIONS. [code = RN TO OBSERVE, ASSESS, EVALUATE, AND DEVELOP AN INDIVIDUALIZED PLAN OF CARE. AGENCY MAY ACCEPT ORDERS FROM CONSULTING PHYSICIANS RN TO OBSERVE AND ASSESS, FREIGHT CONDUCTOR/ASSEMBLER TRUCK TRAILER TO OBSERVE FOR RISK FOR FALLS AND INSTRUCT IN FALL PREVENTION, HOME SAFETY, MEDICATION MANAGEMENT, INFECTION PREVENTION, AND NUTRITION MANAGEMENT. RN/FREIGHT CONDUCTOR/ASSEMBLER TRUCK TRAILER NURSE MAY PERFORM O2 SATURATION LEVEL ON ADMISSION AND PRN FOR RN TO ASSESS/FREIGHT CONDUCTOR TO OBSERVE PATIENT, WITH NOTIFICATION TO THE PHYSICIAN IF SATURATION IS 90% IN THE ABSENCE OF MORE SPECIFIC PARAMETERS FROM THE PHYSICIAN. AGENCY MAY PERFORM A RESUMPTION OF CARE VISIT FOLLOWING ANY HOSPITAL ADMISSION. RN/FREIGHT CONDUCTOR/ASSEMBLER TRUCK TRAILER TO MONITOR CO-MORBID CONDITIONS LISTED ON THE PLAN OF CARE AND ANY NEW CONDITIONS THAT PRESENT THEMSELVES DURING THIS EPISODE TO IDENTIFY CHANGES AND INTERVENE TO MINIMIZE COMPLICATIONS.] Future Scheduled Test PAIN MANAG EMENT; RN TO ASSESS AND TEACH, ASSEMBLER TRUCK TRAILER/FREIGHT CONDUCTOR TO OBSERVE AND TEACH AND PROVIDE EDUCATION ON PAIN MANAGEMENT TECHNIQUES. [code = PAIN MANAGEMENT; RN TO ASSESS AND TEACH, ASSEMBLER TRUCK TRAILER/FREIGHT CONDUCTOR TO OBSERVE AND TEACH AND PROVIDE EDUCATION ON PAIN MANAGEMENT TECHNIQUES.] Future Scheduled Test RISK FOR H OSPITALIZATION; RN TO ASSESS/TEACH, ASSEMBLER TRUCK TRAILER/FREIGHT CONDUCTOR TO OBSERVE/TEACH PATIENT/CAREGIVER ON RISK FOR HOSPITALIZATION/EMERGENCY ROOM VISITS, TEACH SIGNS AND SYMPTOMS THAT PUT PATIENT AT RISK, WHEN TO NOTIFY NURSE/PHYSICIAN OF COMPLICATIONS/DECLINE, AND WHEN TO CALL 911. [code = RISK FOR HOSPITALIZATION; RN TO ASSESS/TEACH, ASSEMBLER TRUCK TRAILER/FREIGHT CONDUCTOR TO OBSERVE/TEACH PATIENT/CAREGIVER ON RISK FOR HOSPITALIZATION/EMERGENCY ROOM VISITS, TEACH SIGNS AND SYMPTOMS THAT PUT PATIENT AT RISK, WHEN TO NOTIFY NURSE/PHYSICIAN OF COMPLICATIONS/DECLINE, AND WHEN TO CALL 911.] Future Scheduled Test CARDIOVASC ULAR SYSTEM; RN TO ASSESS/TEACH, FREIGHT CONDUCTOR/ASSEMBLER TRUCK TRAILER TO OBSERVE/TEACH RELATED TO ALTERED CARDIOVASCULAR STATUS TO MINIMIZE COMPLICATIONS AND REDUCE HOSPITALIZATION. [code = CARDIOVASCULAR SYSTEM; RN TO ASSESS/TEACH, FREIGHT CONDUCTOR/ASSEMBLER TRUCK TRAILER TO OBSERVE/TEACH RELATED TO ALTERED CARDIOVASCULAR STATUS TO MINIMIZE COMPLICATIONS AND REDUCE HOSPITALIZATION.] Future Scheduled Test HYPERTENSI ON MANAGEMENT; RN TO ASSESS AND TEACH, FREIGHT CONDUCTOR/ASSEMBLER TRUCK TRAILER TO OBSERVE AND TEACH WARNING SIGNS AND SYMPTOMS TO AVOID HOSPITALIZATION. [code = HYPERTENSION MANAGEMENT; RN TO ASSESS AND TEACH, FREIGHT CONDUCTOR/ASSEMBLER TRUCK TRAILER TO OBSERVE AND TEACH WARNING SIGNS AND SYMPTOMS TO AVOID HOSPITALIZATION.] Future Scheduled Test HEART FAIL URE MONITORING RN/ASSEMBLER TRUCK TRAILER/FREIGHT CONDUCTOR TO MONITOR PATIENT FOR SIGNS AND SYMPTOMS OF HEART FAILURE EXACERBATION, MONITOR FOR ADHERENCE WITH MEDICATION AND HEART FAILURE MANAGEMENT REGIMEN. [code = HEART FAILURE MONITORING RN/ASSEMBLER TRUCK TRAILER/FREIGHT CONDUCTOR TO MONITOR PATIENT FOR SIGNS AND SYMPTOMS OF HEART FAILURE EXACERBATION, MONITOR FOR ADHERENCE WITH MEDICATION AND HEART FAILURE MANAGEMENT REGIMEN.] Future Scheduled Test DIABETES M ONITORING RN/ASSEMBLER TRUCK TRAILER/FREIGHT CONDUCTOR TO MONITOR BLOOD SUGAR LOG FOR BLOOD SUGAR READINGS THAT ARE BEING CHECKED BY PATIENT, CAREGIVER NEEDED FOR SIGNS AND SYMPTOMS OF HYPER/HYPOGLYCEMIA. PATIENT THERAPEUTIC BLOOD SUGAR PARAMETERS ARE 70 - 300. REPORT BLOOD SUGARS OUT OF RANGE TO PHYSICIAN. NURSE MAY PERFORM FINGER STICK BLOOD GLUCOSE NEEDED FOR SIGNS AND SYMPTOMS OF HYPO AND HYPERGLYCEMIA. RN/ASSEMBLER TRUCK TRAILER/FREIGHT CONDUCTOR TO MONITOR ADHERENCE OF PATIENT/CAREGIVER PERFORMING DIABETIC FOOT CARE AND MAY PERFORM DIABETIC FOOT CARE PRN. RN/ASSEMBLER TRUCK TRAILER/FREIGHT CONDUCTOR TO MONITOR FOR ADHERENCE TO DIABETIC SELF-CARE AND MANAGEMENT INCLUDING MEDICATIONS. [code = DIABETES MONITORING RN/ASSEMBLER TRUCK TRAILER/FREIGHT CONDUCTOR TO MONITOR BLOOD SUGAR LOG FOR BLOOD SUGAR READINGS THAT ARE BEING CHECKED BY PATIENT, CAREGIVER NEEDED FOR SIGNS AND SYMPTOMS OF HYPER/HYPOGLYCEMIA. PATIENT THERAPEUTIC BLOOD SUGAR PARAMETERS ARE 70 - 300. REPORT BLOOD SUGARS OUT OF RANGE TO PHYSICIAN. NURSE MAY PERFORM FINGER STICK BLOOD GLUCOSE NEEDED FOR SIGNS AND SYMPTOMS OF HYPO AND HYPERGLYCEMIA. RN/ASSEMBLER TRUCK TRAILER/FREIGHT CONDUCTOR TO MONITOR ADHERENCE OF PATIENT/CAREGIVER PERFORMING DIABETIC FOOT CARE AND MAY PERFORM DIABETIC FOOT CARE PRN. RN/ASSEMBLER TRUCK TRAILER/FREIGHT CONDUCTOR TO MONITOR FOR ADHERENCE TO DIABETIC SELF-CARE AND MANAGEMENT INCLUDING MEDICATIONS.] Future Scheduled Test HYPOTENSIO N MANAGEMENT; RN TO ASSESS AND TEACH/ FREIGHT CONDUCTOR /ASSEMBLER TRUCK TRAILER TO OBSERVE AND TEACH WARNING SIGNS AND SYMPTOMS TO AVOID HOSPITALIZATION. [code = HYPOTENSION MANAGEMENT; RN TO ASSESS AND TEACH/ FREIGHT CONDUCTOR /ASSEMBLER TRUCK TRAILER TO OBSERVE AND TEACH WARNING SIGNS AND SYMPTOMS TO AVOID HOSPITALIZATION.] Future Scheduled Test ARRHYTHMIA MANAGEMENT; RN TO ASSESS AND TEACH, FREIGHT CONDUCTOR/ASSEMBLER TRUCK TRAILER TO OBSERVE AND TEACH WARNING SIGNS AND SYMPTOMS TO AVOID HOSPITALIZATION. [code = ARRHYTHMIA MANAGEMENT; RN TO ASSESS AND TEACH, FREIGHT CONDUCTOR/ASSEMBLER TRUCK TRAILER TO OBSERVE AND TEACH WARNING SIGNS AND SYMPTOMS TO AVOID HOSPITALIZATION.] Future Scheduled Test MEDICATION MANAGEMENT; RN/FREIGHT CONDUCTOR/ASSEMBLER TRUCK TRAILER TO REVIEW MEDICATIONS FOR INTERACTIONS, EFFECTIVENESS OF DRUG THERAPY, AND SIGNS/SYMPTOMS OF ADVERSE REACTIONS. MAY INSTRUCT AND REINFORCE MEDICATION TEACHING RELATED TO THE USE OF MEDICATIONS, DOSAGE, FREQUENCY, PURPOSE, SIDE EFFECTS, AND TO REPORT COMPLICATIONS. [code = MEDICATION MANAGEMENT; RN/FREIGHT CONDUCTOR/ASSEMBLER TRUCK TRAILER TO REVIEW MEDICATIONS FOR INTERACTIONS, EFFECTIVENESS OF [...] EVAL UATE, OBSERVE / ASSESS, AND MONITOR, FLARER TO OBSERVE AND MONITOR, PROVIDE SKILLED THERAPEUTIC INTERVENTION, ACTIVITY, EDUCATION, AND TRAINING TO ADDRESS GEN. WEAKNESS, POOR OVERALL ACTIVITY TOLERANCE, AND FUNCTIONAL LIMITATIONS IMPACTING SAFETY AND INDEPENDENCE. BED MOBILITY (PT/FLARER) PT/FLARER TO PROVIDE GAIT TRAINING FOR IMPROVED MOBILITY AND /OR TO NORMALIZE GAIT PATTERN THERAPEUTIC EXERCISES AND ESTABLISHING A HOME EXERCISE PROGRAM (PT/FLARER) PT/FLARER TO PROVIDE STAIR TRAINING PT / FLARER TO MONITOR AND EDUCATE ON OXYGEN SATURATION DURING ADLS/IADLS, NOTIFY PHYSICIAN AND/OR THE RN CLINICAL CONVEYOR LOADER FOR PHYSICIAN NOTIFICATION AND IF O2 SATS BELOW PHYSICIAN ORDERED PARAMETERS AFTER 10 MIN OF REST PT / FLARER TO OBSERVE FOR EARLY SIGNS AND SYMPTOMS OF DEPRESSION OR DEPRESSION GETTING WORSE AND TO EDUCATE ON HOW TO FIND HELP. PT / FLARER MAY EDUCATE ON PAIN MANAGEMENT CLINICALLY INDICATED, INCLUDING NON-PHARMACOLOGICAL PAIN REDUCTION TECHNIQUES PT / FLARER TO MONITOR FOR HYPO/HYPERGLYCEMIA AND CONDUCT ROUTINE FOOT INSPECTIONS. RECORD PATIENT REPORTED BLOOD SUGAR LEVELS AND NOTIFY PHYSICIAN AND/OR THE RN CLINICAL CONVEYOR LOADER FOR PHYSICIAN NOTIFICATION IF BLOOD SUGAR LEVELS ARE OUTSIDE ORDERED PARAMETERS. TEACH PATIENT/CAREGIVER ON DAILY FOOT INSPECTIONS PT / FLARER TO INSTRUCT PATIENT/CAREGIVER ON RISK FOR HOSPITALIZATION/EMERGENCY ROOM VISITS, TEACH SIGNS AND SYMPTOMS THAT PUT PATIENT AT RISK, WHEN TO NOTIFY NURSE/PHYSICIAN OF COMPLICATIONS/DECLINE, AND WHEN TO CALL 911. PT/FLARER TO EDUCATE ON ARTHRITIS SELF-MANAGEMENT PT / FLARER TO EDUCATE ON HEART FAILURE SELF-MANAGEMENT PT / FLARER TO EDUCATE ON HYPERTENSION SELF-MANAGEMENT PT TO ASSESS / FLARER TO MONITOR CARDIO/RESPIRATORY SYSTEM; AND NOTIFY THE PHYSICIAN AND/OR THE RN CLINICAL CONVEYOR LOADER FOR PHYSICIAN NOTIFICATION FOR EARLY SIGNS AND SYMPTOMS OF EXACERBATION OR DETERIORATION. PT / FLARER TO EDUCATE ON ATRIAL FIBRILLATION SELF-MANAGEMENT. PT / FLARER TO EDUCATE ON PNEUMONIA / ASPIRATION PNEUMONIA SELF-MANAGEMENT. PT/FLARER TO IDENTIFY FALL RISK FACTORS; EDUCATE THE PATIENT/CAREGIVER ON WAYS TO REDUCE FALL RISK FACTORS AND ESTABLISH HOME EXERCISE PROGRAM TO MINIMIZE FALL RISK. MAY TEACH THE PATIENT FLOOR RECOVERY WHEN CLINICALLY APPROPRIATE [code = PT TO EVALUATE, OBSERVE / ASSESS, AND MONITOR, FLARER TO OBSERVE AND MONITOR, PROVIDE SKILLED THERAPEUTIC INTERVENTION, ACTIVITY, EDUCATION, AND TRAINING TO ADDRESS GEN. WEAKNESS, POOR OVERALL ACTIVITY TOLERANCE, AND FUNCTIONAL LIMITATIONS IMPACTING SAFETY AND INDEPENDENCE. BED MOBILITY (PT/FLARER) PT/FLARER TO PROVIDE GAIT TRAINING FOR IMPROVED MOBILITY AND /OR TO NORMALIZE GAIT PATTERN THERAPEUTIC EXERCISES AND ESTABLISHING A HOME EXERCISE PROGRAM (PT/FLARER) PT/FLARER TO PROVIDE STAIR TRAINING PT / FLARER TO MONITOR AND EDUCATE ON OXYGEN SATURATION DURING ADLS/IADLS, NOTIFY PHYSICIAN AND/OR THE RN CLINICAL CONVEYOR LOADER FOR PHYSICIAN NOTIFICATION AND IF O2 SATS BELOW PHYSICIAN ORDERED PARAMETERS AFTER 10 MIN OF REST PT / FLARER TO OBSERVE FOR EARLY SIGNS AND SYMPTOMS OF DEPRESSION OR DEPRESSION GETTING WORSE AND TO EDUCATE ON HOW TO FIND HELP. PT / FLARER MAY EDUCATE ON PAIN MANAGEMENT CLINICALLY INDICATED, INCLUDING NON-PHARMACOLOGICAL PAIN REDUCTION TECHNIQUES PT / FLARER TO MONITOR FOR HYPO/HYPERGLYCEMIA AND CONDUCT ROUTINE FOOT INSPECTIONS. RECORD PATIENT REPORTED BLOOD SUGAR LEVELS AND NOTIFY PHYSICIAN AND/OR THE RN CLINICAL CONVEYOR LOADER FOR PHYSICIAN NOTIFICATION IF BLOOD SUGAR LEVELS ARE OUTSIDE ORDERED PARAMETERS. TEACH PATIENT/CAREGIVER ON DAILY FOOT INSPECTIONS PT / FLARER TO INSTRUCT PATIENT/CAREGIVER ON RISK FOR HOSPITALIZATION/EMERGENCY ROOM VISITS, TEACH SIGNS AND SYMPTOMS THAT PUT PATIENT AT RISK, WHEN TO NOTIFY NURSE/PHYSICIAN OF COMPLICATIONS/DECLINE, AND WHEN TO CALL 911. PT/FLARER TO EDUCATE ON ARTHRITIS SELF-MANAGEMENT PT / FLARER TO EDUCATE ON HEART FAILURE SELF-MANAGEMENT PT / FLARER TO EDUCATE ON HYPERTENSION SELF-MANAGEMENT PT TO ASSESS / FLARER TO MONITOR CARDIO/RESPIRATORY SYSTEM; AND NOTIFY THE PHYSICIAN AND/OR THE RN CLINICAL CONVEYOR LOADER FOR PHYSICIAN NOTIFICATION FOR EARLY SIGNS AND SYMPTOMS OF EXACERBATION OR DETERIORATION. PT / FLARER TO EDUCATE ON ATRIAL FIBRILLATION SELF-MANAGEMENT. PT / FLARER TO EDUCATE ON PNEUMONIA / ASPIRATION PNEUMONIA SELF-MANAGEMENT. PT/FLARER TO IDENTIFY FALL RISK FACTORS; EDUCATE THE PATIENT/CAREGIVER ON WAYS TO REDUCE FALL RISK FACTORS AND ESTABLISH HOME EXERCISE PROGRAM TO MINIMIZE FALL RISK. MAY TEACH THE PATIENT FLOOR RECOVERY WHEN CLINICALLY APPROPRIATE] Future Scheduled Test AGENCY MAY PERFORM A RESUMPTION OF CARE VISIT FOLLOWING ANY HOSPITAL ADMISSION. OT TO EVALUATE, OBSERVE / ASSESS, AND MONITOR, [employer]FT CRM DEVELOPER TO OBSERVE AND MONITOR, PROVIDE SKILLED THERAPEUTIC INTERVENTION, ACTIVITY, EDUCATION, AND TRAINING TO ADDRESS SAFETY AND INDEPENDENCE OF ADLS AND FUNCTIONAL TRANSFERS IN HOME ENVIRONMENT. ACTIVITIES OF DAILY LIVING (OT/MARIANNE) THERAPEUTIC EXERCISE (OT/PEOPLESOFT CRM DEVELOPER) ENERGY CONSERVATION/ACTIVITY DEMAND (OT/PEOPLESOFT CRM DEVELOPER) OT/PEOPLESOFT CRM DEVELOPER TO MONITOR AND EDUCATE ON OXYGEN SATURATION DURING ADLS/IADLS, NOTIFY PHYSICIAN AND/OR THE RN CLINICAL CONVEYOR LOADER FOR PHYSICIAN NOTIFICATION AND IF O2 SATS BELOW 90% AFTER 10 MIN OF REST. OT / [employer] CRM DEVELOPER TO IDENTIFY FALL RISK FACTORS; EDUCATE THE PATIENT/CAREGIVER ON WAYS TO REDUCE FALL RISK FACTORS AND ESTABLISH HOME EXERCISE PROGRAM TO MINIMIZE FALL RISK. MAY TEACH THE PATIENT FLOOR RECOVERY WHEN CLINICALLY APPROPRIATE. OT/PEOPLESOFT CRM DEVELOPER TO EDUCATE ON HYPERTENSION SELF-MANAGEMENT OT/MARIANNE TO EDUCATE ON ATRIAL FIBRILLATION SELF-MANAGEMENT. [code = AGENCY MAY PERFORM A RESUMPTION OF CARE VISIT FOLLOWING ANY HOSPITAL ADMISSION. OT TO EVALUATE, OBSERVE / ASSESS, AND MONITOR, [employer] CRM DEVELOPER TO OBSERVE AND MONITOR, PROVIDE SKILLED THERAPEUTIC INTERVENTION, ACTIVITY, EDUCATION, AND TRAINING TO ADDRESS SAFETY AND INDEPENDENCE OF ADLS AND FUNCTIONAL TRANSFERS IN HOME ENVIRONMENT. ACTIVITIES OF DAILY LIVING (OT/MARIANNE) THERAPEUTIC EXERCISE (OT/PEOPLESOFT CRM DEVELOPER) ENERGY CONSERVATION/ACTIVITY DEMAND (OT/MARIANNE) OT/PEOPLESOFT CRM DEVELOPER TO MONITOR AND EDUCATE ON OXYGEN SATURATION DURING ADLS/IADLS, NOTIFY PHYSICIAN AND/OR THE RN CLINICAL CONVEYOR LOADER FOR PHYSICIAN NOTIFICATION AND IF O2 SATS BELOW 90% AFTER 10 MIN OF REST. OT / MARIANNE TO IDENTIFY FALL RISK FACTORS; EDUCATE THE PATIENT/CAREGIVER ON WAYS TO REDUCE FALL RISK FACTORS AND ESTABLISH HOME EXERCISE PROGRAM TO MINIMIZE FALL RISK. MAY TEACH THE PATIENT FLOOR RECOVERY WHEN CLINICALLY APPROPRIATE. OT/PEOPLESOFT CRM DEVELOPER TO EDUCATE ON HYPERTENSION SELF-MANAGEMENT OT/MARIANNE [...] OF SKIN INTEGRITY ISSUES FROM SBA TO CT WITHIN 2 WKS. PT STG: PATIENT WILL [...] TO SAFELY NEGOTIATE STAIRS FROM SBA TO CT WITH 2 STEPS W/O HANDRAIL VIA FRONT [...] End Date/Time Encounter Type Admission Type Attending [facility] Care Department Encounter ID Discharge Date Discharge Status Discharge Condition Discharge Reason Percent Goals Met 2025-02-07 00:00:00 2025-04-07 00:00:00 Outpatient NEW ADMISSION [facility] [id number] 26.42
--- OUTSIDE RECORDS SUMMARY | 2025-04-06 18:00 | XMS_ITS | Clinical Summary ---
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 INTERNAL MEDICINE DOCTOR (CURRENT) USE OF SYSTEMIC STEROIDS Active 02-07 [...] 80 mg tablet 02-07 00:00: 00 Yes [id number] CHOLESTEROL 1 tablet DAILY 1 tablet DAILY (route: oral) Med Classific ation: Cardiovas cular Therapy Agents digoxin 125 mcg (0.125 mg) tablet 02-07 00:00: 00 02-21 23:59 :00 No [id number] HEART RHYTHM 1 tablet DAILY 1 tablet DAILY (route: oral) Med Classific ation: Cardiovas cular Therapy Agents escitalopra m 10 mg tablet 02-07 00:00: 00 Yes [id number] MOOD 1 tablet DAILY 1 tablet DAILY (route: oral) Med Classific ation: Central Nervous System Agents ezetimibe 10 mg tablet 02-07 00:00: 00 Yes [id number] CHOLESTEROL 1 tablet DAILY 1 tablet DAILY (route: oral) Med Classific ation: Cardiovas cular Therapy Agents metoprolol succinate ER 25 mg tablet,exte nded release 24 hr 02-07 00:00: 00 02-21 23:59 :00 No [id number] BLOOD PRESSURE 0.5 tablet DAILY 0.5 tablet DAILY (route: oral) Med Classific ation: Cardiovas cular Therapy Agents pantoprazol e 40 mg tablet,joão yed release 02-07 00:00: 00 02-21 23:59 :00 No [id number] STOMACH ACID 1 tablet DAILY 1 tablet DAILY (route: oral) Med Classific ation: Gastroint estinal Therapy Agents prednisone 5 mg tablet 02-07 00:00: 00 Yes [id number] ADRENAL INSUFFICIEN CY 1 tablet DAILY 1 tablet DAILY (route: oral) Med Classific ation: Endocrine spironolact one 25 mg tablet 02-07 00:00: 00 Yes [id number] FLUID RETENTION 0.5 tablet DAILY 0.5 tablet DAILY (route: oral) Med Classific ation: Cardiovas cular Therapy Agents tamsulosin 0.4 mg capsule 02-07 00:00: 00 02-21 23:59 :00 No [id number] URINARY HEALTH 1 capsule DAILY 1 capsule DAILY (route: oral) Med Classific ation: Genitouri nary Therapy acetaminoph en 325 mg tablet 2024-05 00:00: 00 Yes [id number] PAIN 2 tablet 2 TIMES DAILY 2 tablet 2 TIMES DAILY (route: oral) Med Classific ation: Analgesic , Anti-infl ammatory or Antipyret ic aspirin 81 mg tablet 2024-05 00:00: 00 Yes [id number] ANTICOAGULA NT 1 tablet DAILY 1 tablet DAILY (route: oral) Med Classific ation: Hematolog ical Agents ipratropium 0.5 mg-albutero l 3 mg (2.5 mg base)/3 mL nebulizatio n soln 2024-05 00:00: 00 Yes [id number] COPD 3 mL EVERY 6 HOURS 3 mL EVERY 6 HOURS (route: inhalation ) Med Classific ation: Respirato ry Therapy Agents Lanoxin 62.5 mcg (0.0625 mg) tablet 2024-05 00:00: 00 Yes [id number] CHF 1 tablet DAILY 1 tablet DAILY (route: oral) Med Classific ation: Cardiovas cular Therapy Agents Lasix 20 mg tablet 2024-05 00:00: 00 Yes [id number] CHF 1 tablet DAILY 1 tablet DAILY (route: oral) Med Classific ation: Cardiovas cular Therapy Agents Toprol XL 25 mg tablet,exte nded release 2024-05 00:00: 00 Yes [id number] BP 25 mg DAILY 25 mg DAILY [...] SYSTEM MANAGEMENT; RN TO ASSESS AND TEACH, PRODUCT PLANNER/CHOREOGRAPHY DIRECTOR TO OBSERVE AND TEACH RELATED TO ALTERED RESPIRATORY STATUS TO MINIMIZE COMPLICATIONS AND REDUCE HOSPITALIZATION. [code = SN 1WK9 PT 1WK1 OT EFFECTIVE 02/10/2025K1 RESPIRATORY SYSTEM MANAGEMENT; RN TO ASSESS AND TEACH, PRODUCT PLANNER/CHOREOGRAPHY DIRECTOR TO OBSERVE AND TEACH RELATED TO ALTERED RESPIRATORY STATUS TO MINIMIZE COMPLICATIONS AND REDUCE HOSPITALIZATION.] Future Scheduled Test TRACHEOSTO MY CARE MANAGEMENT; RN/PRODUCT PLANNER/CHOREOGRAPHY DIRECTOR TO INSTRUCT PATIENT/CAREGIVER ON CARE AND MANAGEMENT OF TRACHEOSTOMY. RN/ PRODUCT PLANNER/CHOREOGRAPHY DIRECTOR TO PROVIDE SKILLED TEACHING ON TRACH COLLAR SUCTIONING PRN WITH 14 FR SUCTION CATHETER PER PATIENT TRACH CARE WITH INNER CANNULA: REMOVE INNER CANNULA, CLEANSE WITH NORMAL SALINE AND OR STERILE WATER AND REINSERT NON-DISPOSABLE CANNULA SIZE OF INNER CANNULA 5 BROOKS [code = TRACHEOSTOMY CARE MANAGEMENT; RN/PRODUCT PLANNER/CHOREOGRAPHY DIRECTOR TO INSTRUCT PATIENT/CAREGIVER ON CARE AND MANAGEMENT OF TRACHEOSTOMY. RN/ PRODUCT PLANNER/CHOREOGRAPHY DIRECTOR TO PROVIDE SKILLED TEACHING ON TRACH COLLAR SUCTIONING PRN WITH 14 FR SUCTION CATHETER PER PATIENT TRACH CARE WITH INNER CANNULA: REMOVE INNER CANNULA, CLEANSE WITH NORMAL SALINE AND OR STERILE WATER AND REINSERT NON-DISPOSABLE CANNULA SIZE OF INNER CANNULA 5 BROOKS] Future Scheduled Test FALL REDUC TION MANAGEMENT; RN TO ASSESS AND OBSERVE, PRODUCT PLANNER/CHOREOGRAPHY DIRECTOR TO OBSERVE FALL RISK FACTORS AND EDUCATE PATIENT/CAREGIVER ON STRATEGIES TO MINIMIZE THE RISK OF FALLING. [code = FALL REDUCTION MANAGEMENT; RN TO ASSESS AND OBSERVE, PRODUCT PLANNER/CHOREOGRAPHY DIRECTOR TO OBSERVE FALL RISK FACTORS AND EDUCATE PATIENT/CAREGIVER ON STRATEGIES TO MINIMIZE THE RISK OF FALLING.] Future Scheduled Test ANEMIA MAN AGEMENT; RN TO ASSESS AND TEACH, CHOREOGRAPHY DIRECTOR/PRODUCT PLANNER TO OBSERVE AND TEACH AND PROVIDE EDUCATION ON ANEMIA. [code = ANEMIA MANAGEMENT; RN TO ASSESS AND TEACH, CHOREOGRAPHY DIRECTOR/PRODUCT PLANNER TO OBSERVE AND TEACH AND PROVIDE EDUCATION ON ANEMIA.] Future Scheduled Test RN TO OBSE RVE, ASSESS, EVALUATE, AND DEVELOP AN INDIVIDUALIZED PLAN OF CARE. AGENCY MAY ACCEPT ORDERS FROM CONSULTING PHYSICIANS RN TO OBSERVE AND ASSESS, PRODUCT PLANNER/CHOREOGRAPHY DIRECTOR TO OBSERVE FOR RISK FOR FALLS AND INSTRUCT IN FALL PREVENTION, HOME SAFETY, MEDICATION MANAGEMENT, INFECTION PREVENTION, AND NUTRITION MANAGEMENT. RN/PRODUCT PLANNER/CHOREOGRAPHY DIRECTOR NURSE MAY PERFORM O2 SATURATION LEVEL ON ADMISSION AND PRN FOR RN TO ASSESS/PRODUCT PLANNER TO OBSERVE PATIENT, WITH NOTIFICATION TO THE PHYSICIAN IF SATURATION IS 90% IN THE ABSENCE OF MORE SPECIFIC PARAMETERS FROM THE PHYSICIAN. AGENCY MAY PERFORM A RESUMPTION OF CARE VISIT FOLLOWING ANY HOSPITAL ADMISSION. RN/PRODUCT PLANNER/CHOREOGRAPHY DIRECTOR TO MONITOR CO-MORBID CONDITIONS LISTED ON THE PLAN OF CARE AND ANY NEW CONDITIONS THAT PRESENT THEMSELVES DURING THIS EPISODE TO IDENTIFY CHANGES AND INTERVENE TO MINIMIZE COMPLICATIONS. [code = RN TO OBSERVE, ASSESS, EVALUATE, AND DEVELOP AN INDIVIDUALIZED PLAN OF CARE. AGENCY MAY ACCEPT ORDERS FROM CONSULTING PHYSICIANS RN TO OBSERVE AND ASSESS, PRODUCT PLANNER/CHOREOGRAPHY DIRECTOR TO OBSERVE FOR RISK FOR FALLS AND INSTRUCT IN FALL PREVENTION, HOME SAFETY, MEDICATION MANAGEMENT, INFECTION PREVENTION, AND NUTRITION MANAGEMENT. RN/PRODUCT PLANNER/CHOREOGRAPHY DIRECTOR NURSE MAY PERFORM O2 SATURATION LEVEL ON ADMISSION AND PRN FOR RN TO ASSESS/PRODUCT PLANNER TO OBSERVE PATIENT, WITH NOTIFICATION TO THE PHYSICIAN IF SATURATION IS 90% IN THE ABSENCE OF MORE SPECIFIC PARAMETERS FROM THE PHYSICIAN. AGENCY MAY PERFORM A RESUMPTION OF CARE VISIT FOLLOWING ANY HOSPITAL ADMISSION. RN/PRODUCT PLANNER/CHOREOGRAPHY DIRECTOR TO MONITOR CO-MORBID CONDITIONS LISTED ON THE PLAN OF CARE AND ANY NEW CONDITIONS THAT PRESENT THEMSELVES DURING THIS EPISODE TO IDENTIFY CHANGES AND INTERVENE TO MINIMIZE COMPLICATIONS.] Future Scheduled Test PAIN MANAG EMENT; RN TO ASSESS AND TEACH, CHOREOGRAPHY DIRECTOR/PRODUCT PLANNER TO OBSERVE AND TEACH AND PROVIDE EDUCATION ON PAIN MANAGEMENT TECHNIQUES. [code = PAIN MANAGEMENT; RN TO ASSESS AND TEACH, CHOREOGRAPHY DIRECTOR/PRODUCT PLANNER TO OBSERVE AND TEACH AND PROVIDE EDUCATION ON PAIN MANAGEMENT TECHNIQUES.] Future Scheduled Test RISK FOR H OSPITALIZATION; RN TO ASSESS/TEACH, CHOREOGRAPHY DIRECTOR/PRODUCT PLANNER TO OBSERVE/TEACH PATIENT/CAREGIVER ON RISK FOR HOSPITALIZATION/EMERGENCY ROOM VISITS, TEACH SIGNS AND SYMPTOMS THAT PUT PATIENT AT RISK, WHEN TO NOTIFY NURSE/PHYSICIAN OF COMPLICATIONS/DECLINE, AND WHEN TO CALL 911. [code = RISK FOR HOSPITALIZATION; RN TO ASSESS/TEACH, CHOREOGRAPHY DIRECTOR/PRODUCT PLANNER TO OBSERVE/TEACH PATIENT/CAREGIVER ON RISK FOR HOSPITALIZATION/EMERGENCY ROOM VISITS, TEACH SIGNS AND SYMPTOMS THAT PUT PATIENT AT RISK, WHEN TO NOTIFY NURSE/PHYSICIAN OF COMPLICATIONS/DECLINE, AND WHEN TO CALL 911.] Future Scheduled Test CARDIOVASC ULAR SYSTEM; RN TO ASSESS/TEACH, PRODUCT PLANNER/CHOREOGRAPHY DIRECTOR TO OBSERVE/TEACH RELATED TO ALTERED CARDIOVASCULAR STATUS TO MINIMIZE COMPLICATIONS AND REDUCE HOSPITALIZATION. [code = CARDIOVASCULAR SYSTEM; RN TO ASSESS/TEACH, PRODUCT PLANNER/CHOREOGRAPHY DIRECTOR TO OBSERVE/TEACH RELATED TO ALTERED CARDIOVASCULAR STATUS TO MINIMIZE COMPLICATIONS AND REDUCE HOSPITALIZATION.] Future Scheduled Test HYPERTENSI ON MANAGEMENT; RN TO ASSESS AND TEACH, PRODUCT PLANNER/CHOREOGRAPHY DIRECTOR TO OBSERVE AND TEACH WARNING SIGNS AND SYMPTOMS TO AVOID HOSPITALIZATION. [code = HYPERTENSION MANAGEMENT; RN TO ASSESS AND TEACH, PRODUCT PLANNER/CHOREOGRAPHY DIRECTOR TO OBSERVE AND TEACH WARNING SIGNS AND SYMPTOMS TO AVOID HOSPITALIZATION.] Future Scheduled Test HEART FAIL URE MONITORING RN/CHOREOGRAPHY DIRECTOR/PRODUCT PLANNER TO MONITOR PATIENT FOR SIGNS AND SYMPTOMS OF HEART FAILURE EXACERBATION, MONITOR FOR ADHERENCE WITH MEDICATION AND HEART FAILURE MANAGEMENT REGIMEN. [code = HEART FAILURE MONITORING RN/CHOREOGRAPHY DIRECTOR/PRODUCT PLANNER TO MONITOR PATIENT FOR SIGNS AND SYMPTOMS OF HEART FAILURE EXACERBATION, MONITOR FOR ADHERENCE WITH MEDICATION AND HEART FAILURE MANAGEMENT REGIMEN.] Future Scheduled Test DIABETES M ONITORING RN/CHOREOGRAPHY DIRECTOR/PRODUCT PLANNER TO MONITOR BLOOD SUGAR LOG FOR BLOOD SUGAR READINGS THAT ARE BEING CHECKED BY PATIENT, CAREGIVER NEEDED FOR SIGNS AND SYMPTOMS OF HYPER/HYPOGLYCEMIA. PATIENT THERAPEUTIC BLOOD SUGAR PARAMETERS ARE 70 - 300. REPORT BLOOD SUGARS OUT OF RANGE TO PHYSICIAN. NURSE MAY PERFORM FINGER STICK BLOOD GLUCOSE NEEDED FOR SIGNS AND SYMPTOMS OF HYPO AND HYPERGLYCEMIA. RN/CHOREOGRAPHY DIRECTOR/PRODUCT PLANNER TO MONITOR ADHERENCE OF PATIENT/CAREGIVER PERFORMING DIABETIC FOOT CARE AND MAY PERFORM DIABETIC FOOT CARE PRN. RN/CHOREOGRAPHY DIRECTOR/PRODUCT PLANNER TO MONITOR FOR ADHERENCE TO DIABETIC SELF-CARE AND MANAGEMENT INCLUDING MEDICATIONS. [code = DIABETES MONITORING RN/CHOREOGRAPHY DIRECTOR/PRODUCT PLANNER TO MONITOR BLOOD SUGAR LOG FOR BLOOD SUGAR READINGS THAT ARE BEING CHECKED BY PATIENT, CAREGIVER NEEDED FOR SIGNS AND SYMPTOMS OF HYPER/HYPOGLYCEMIA. PATIENT THERAPEUTIC BLOOD SUGAR PARAMETERS ARE 70 - 300. REPORT BLOOD SUGARS OUT OF RANGE TO PHYSICIAN. NURSE MAY PERFORM FINGER STICK BLOOD GLUCOSE NEEDED FOR SIGNS AND SYMPTOMS OF HYPO AND HYPERGLYCEMIA. RN/CHOREOGRAPHY DIRECTOR/PRODUCT PLANNER TO MONITOR ADHERENCE OF PATIENT/CAREGIVER PERFORMING DIABETIC FOOT CARE AND MAY PERFORM DIABETIC FOOT CARE PRN. RN/CHOREOGRAPHY DIRECTOR/PRODUCT PLANNER TO MONITOR FOR ADHERENCE TO DIABETIC SELF-CARE AND MANAGEMENT INCLUDING MEDICATIONS.] Future Scheduled Test HYPOTENSIO N MANAGEMENT; RN TO ASSESS AND TEACH/ PRODUCT PLANNER /CHOREOGRAPHY DIRECTOR TO OBSERVE AND TEACH WARNING SIGNS AND SYMPTOMS TO AVOID HOSPITALIZATION. [code = HYPOTENSION MANAGEMENT; RN TO ASSESS AND TEACH/ PRODUCT PLANNER /CHOREOGRAPHY DIRECTOR TO OBSERVE AND TEACH WARNING SIGNS AND SYMPTOMS TO AVOID HOSPITALIZATION.] Future Scheduled Test ARRHYTHMIA MANAGEMENT; RN TO ASSESS AND TEACH, PRODUCT PLANNER/CHOREOGRAPHY DIRECTOR TO OBSERVE AND TEACH WARNING SIGNS AND SYMPTOMS TO AVOID HOSPITALIZATION. [code = ARRHYTHMIA MANAGEMENT; RN TO ASSESS AND TEACH, PRODUCT PLANNER/CHOREOGRAPHY DIRECTOR TO OBSERVE AND TEACH WARNING SIGNS AND SYMPTOMS TO AVOID HOSPITALIZATION.] Future Scheduled Test MEDICATION MANAGEMENT; RN/PRODUCT PLANNER/CHOREOGRAPHY DIRECTOR TO REVIEW MEDICATIONS FOR INTERACTIONS, EFFECTIVENESS OF DRUG THERAPY, AND SIGNS/SYMPTOMS OF ADVERSE REACTIONS. MAY INSTRUCT AND REINFORCE MEDICATION TEACHING RELATED TO THE USE OF MEDICATIONS, DOSAGE, FREQUENCY, PURPOSE, SIDE EFFECTS, AND TO REPORT COMPLICATIONS. [code = MEDICATION MANAGEMENT; RN/PRODUCT PLANNER/CHOREOGRAPHY DIRECTOR TO REVIEW MEDICATIONS FOR INTERACTIONS, EFFECTIVENESS OF [...] EVAL UATE, OBSERVE / ASSESS, AND MONITOR, KILN DRAWER TO OBSERVE AND MONITOR, PROVIDE SKILLED THERAPEUTIC INTERVENTION, ACTIVITY, EDUCATION, AND TRAINING TO ADDRESS GEN. WEAKNESS, POOR OVERALL ACTIVITY TOLERANCE, AND FUNCTIONAL LIMITATIONS IMPACTING SAFETY AND INDEPENDENCE. BED MOBILITY (PT/KILN DRAWER) PT/KILN DRAWER TO PROVIDE GAIT TRAINING FOR IMPROVED MOBILITY AND /OR TO NORMALIZE GAIT PATTERN THERAPEUTIC EXERCISES AND ESTABLISHING A HOME EXERCISE PROGRAM (PT/KILN DRAWER) PT/KILN DRAWER TO PROVIDE STAIR TRAINING PT / KILN DRAWER TO MONITOR AND EDUCATE ON OXYGEN SATURATION DURING ADLS/IADLS, NOTIFY PHYSICIAN AND/OR THE RN CLINICAL BARGE HAND FOR PHYSICIAN NOTIFICATION AND IF O2 SATS BELOW PHYSICIAN ORDERED PARAMETERS AFTER 10 MIN OF REST PT / KILN DRAWER TO OBSERVE FOR EARLY SIGNS AND SYMPTOMS OF DEPRESSION OR DEPRESSION GETTING WORSE AND TO EDUCATE ON HOW TO FIND HELP. PT / KILN DRAWER MAY EDUCATE ON PAIN MANAGEMENT CLINICALLY INDICATED, INCLUDING NON-PHARMACOLOGICAL PAIN REDUCTION TECHNIQUES PT / KILN DRAWER TO MONITOR FOR HYPO/HYPERGLYCEMIA AND CONDUCT ROUTINE FOOT INSPECTIONS. RECORD PATIENT REPORTED BLOOD SUGAR LEVELS AND NOTIFY PHYSICIAN AND/OR THE RN CLINICAL BARGE HAND FOR PHYSICIAN NOTIFICATION IF BLOOD SUGAR LEVELS ARE OUTSIDE ORDERED PARAMETERS. TEACH PATIENT/CAREGIVER ON DAILY FOOT INSPECTIONS PT / KILN DRAWER TO INSTRUCT PATIENT/CAREGIVER ON RISK FOR HOSPITALIZATION/EMERGENCY ROOM VISITS, TEACH SIGNS AND SYMPTOMS THAT PUT PATIENT AT RISK, WHEN TO NOTIFY NURSE/PHYSICIAN OF COMPLICATIONS/DECLINE, AND WHEN TO CALL 911. PT/KILN DRAWER TO EDUCATE ON ARTHRITIS SELF-MANAGEMENT PT / KILN DRAWER TO EDUCATE ON HEART FAILURE SELF-MANAGEMENT PT / KILN DRAWER TO EDUCATE ON HYPERTENSION SELF-MANAGEMENT PT TO ASSESS / KILN DRAWER TO MONITOR CARDIO/RESPIRATORY SYSTEM; AND NOTIFY THE PHYSICIAN AND/OR THE RN CLINICAL BARGE HAND FOR PHYSICIAN NOTIFICATION FOR EARLY SIGNS AND SYMPTOMS OF EXACERBATION OR DETERIORATION. PT / KILN DRAWER TO EDUCATE ON ATRIAL FIBRILLATION SELF-MANAGEMENT. PT / KILN DRAWER TO EDUCATE ON PNEUMONIA / ASPIRATION PNEUMONIA SELF-MANAGEMENT. PT/KILN DRAWER TO IDENTIFY FALL RISK FACTORS; EDUCATE THE PATIENT/CAREGIVER ON WAYS TO REDUCE FALL RISK FACTORS AND ESTABLISH HOME EXERCISE PROGRAM TO MINIMIZE FALL RISK. MAY TEACH THE PATIENT FLOOR RECOVERY WHEN CLINICALLY APPROPRIATE [code = PT TO EVALUATE, OBSERVE / ASSESS, AND MONITOR, KILN DRAWER TO OBSERVE AND MONITOR, PROVIDE SKILLED THERAPEUTIC INTERVENTION, ACTIVITY, EDUCATION, AND TRAINING TO ADDRESS GEN. WEAKNESS, POOR OVERALL ACTIVITY TOLERANCE, AND FUNCTIONAL LIMITATIONS IMPACTING SAFETY AND INDEPENDENCE. BED MOBILITY (PT/KILN DRAWER) PT/KILN DRAWER TO PROVIDE GAIT TRAINING FOR IMPROVED MOBILITY AND /OR TO NORMALIZE GAIT PATTERN THERAPEUTIC EXERCISES AND ESTABLISHING A HOME EXERCISE PROGRAM (PT/KILN DRAWER) PT/KILN DRAWER TO PROVIDE STAIR TRAINING PT / KILN DRAWER TO MONITOR AND EDUCATE ON OXYGEN SATURATION DURING ADLS/IADLS, NOTIFY PHYSICIAN AND/OR THE RN CLINICAL BARGE HAND FOR PHYSICIAN NOTIFICATION AND IF O2 SATS BELOW PHYSICIAN ORDERED PARAMETERS AFTER 10 MIN OF REST PT / KILN DRAWER TO OBSERVE FOR EARLY SIGNS AND SYMPTOMS OF DEPRESSION OR DEPRESSION GETTING WORSE AND TO EDUCATE ON HOW TO FIND HELP. PT / KILN DRAWER MAY EDUCATE ON PAIN MANAGEMENT CLINICALLY INDICATED, INCLUDING NON-PHARMACOLOGICAL PAIN REDUCTION TECHNIQUES PT / KILN DRAWER TO MONITOR FOR HYPO/HYPERGLYCEMIA AND CONDUCT ROUTINE FOOT INSPECTIONS. RECORD PATIENT REPORTED BLOOD SUGAR LEVELS AND NOTIFY PHYSICIAN AND/OR THE RN CLINICAL BARGE HAND FOR PHYSICIAN NOTIFICATION IF BLOOD SUGAR LEVELS ARE OUTSIDE ORDERED PARAMETERS. TEACH PATIENT/CAREGIVER ON DAILY FOOT INSPECTIONS PT / KILN DRAWER TO INSTRUCT PATIENT/CAREGIVER ON RISK FOR HOSPITALIZATION/EMERGENCY ROOM VISITS, TEACH SIGNS AND SYMPTOMS THAT PUT PATIENT AT RISK, WHEN TO NOTIFY NURSE/PHYSICIAN OF COMPLICATIONS/DECLINE, AND WHEN TO CALL 911. PT/KILN DRAWER TO EDUCATE ON ARTHRITIS SELF-MANAGEMENT PT / KILN DRAWER TO EDUCATE ON HEART FAILURE SELF-MANAGEMENT PT / KILN DRAWER TO EDUCATE ON HYPERTENSION SELF-MANAGEMENT PT TO ASSESS / KILN DRAWER TO MONITOR CARDIO/RESPIRATORY SYSTEM; AND NOTIFY THE PHYSICIAN AND/OR THE RN CLINICAL BARGE HAND FOR PHYSICIAN NOTIFICATION FOR EARLY SIGNS AND SYMPTOMS OF EXACERBATION OR DETERIORATION. PT / KILN DRAWER TO EDUCATE ON ATRIAL FIBRILLATION SELF-MANAGEMENT. PT / KILN DRAWER TO EDUCATE ON PNEUMONIA / ASPIRATION PNEUMONIA SELF-MANAGEMENT. PT/KILN DRAWER TO IDENTIFY FALL RISK FACTORS; EDUCATE THE PATIENT/CAREGIVER ON WAYS TO REDUCE FALL RISK FACTORS AND ESTABLISH HOME EXERCISE PROGRAM TO MINIMIZE FALL RISK. MAY TEACH THE PATIENT FLOOR RECOVERY WHEN CLINICALLY APPROPRIATE] Future Scheduled Test AGENCY MAY PERFORM A RESUMPTION OF CARE VISIT FOLLOWING ANY HOSPITAL ADMISSION. OT TO EVALUATE, OBSERVE / ASSESS, AND MONITOR, SOCIAL MEDIA PROJECT MANAGER TO OBSERVE AND MONITOR, PROVIDE SKILLED THERAPEUTIC INTERVENTION, ACTIVITY, EDUCATION, AND TRAINING TO ADDRESS SAFETY AND INDEPENDENCE OF ADLS AND FUNCTIONAL TRANSFERS IN HOME ENVIRONMENT. ACTIVITIES OF DAILY LIVING (OT/MARIANNE) THERAPEUTIC EXERCISE (OT/SOCIAL MEDIA PROJECT MANAGER) ENERGY CONSERVATION/ACTIVITY DEMAND (OT/SOCIAL MEDIA PROJECT MANAGER) OT/SOCIAL MEDIA PROJECT MANAGER TO MONITOR AND EDUCATE ON OXYGEN SATURATION DURING ADLS/IADLS, NOTIFY PHYSICIAN AND/OR THE RN CLINICAL BARGE HAND FOR PHYSICIAN NOTIFICATION AND IF O2 SATS BELOW 90% AFTER 10 MIN OF REST. OT / SOCIAL MEDIA PROJECT MANAGER TO IDENTIFY FALL RISK FACTORS; EDUCATE THE PATIENT/CAREGIVER ON WAYS TO REDUCE FALL RISK FACTORS AND ESTABLISH HOME EXERCISE PROGRAM TO MINIMIZE FALL RISK. MAY TEACH THE PATIENT FLOOR RECOVERY WHEN CLINICALLY APPROPRIATE. OT/SOCIAL MEDIA PROJECT MANAGER TO EDUCATE ON HYPERTENSION SELF-MANAGEMENT OT/MARIANNE TO EDUCATE ON ATRIAL FIBRILLATION SELF-MANAGEMENT. [code = AGENCY MAY PERFORM A RESUMPTION OF CARE VISIT FOLLOWING ANY HOSPITAL ADMISSION. OT TO EVALUATE, OBSERVE / ASSESS, AND MONITOR, SOCIAL MEDIA PROJECT MANAGER TO OBSERVE AND MONITOR, PROVIDE SKILLED THERAPEUTIC INTERVENTION, ACTIVITY, EDUCATION, AND TRAINING TO ADDRESS SAFETY AND INDEPENDENCE OF ADLS AND FUNCTIONAL TRANSFERS IN HOME ENVIRONMENT. ACTIVITIES OF DAILY LIVING (OT/MARIANNE) THERAPEUTIC EXERCISE (OT/SOCIAL MEDIA PROJECT MANAGER) ENERGY CONSERVATION/ACTIVITY DEMAND (OT/MARIANNE) OT/SOCIAL MEDIA PROJECT MANAGER TO MONITOR AND EDUCATE ON OXYGEN SATURATION DURING ADLS/IADLS, NOTIFY PHYSICIAN AND/OR THE RN CLINICAL BARGE HAND FOR PHYSICIAN NOTIFICATION AND IF O2 SATS BELOW 90% AFTER 10 MIN OF REST. OT / MARIANNE TO IDENTIFY FALL RISK FACTORS; EDUCATE THE PATIENT/CAREGIVER ON WAYS TO REDUCE FALL RISK FACTORS AND ESTABLISH HOME EXERCISE PROGRAM TO MINIMIZE FALL RISK. MAY TEACH THE PATIENT FLOOR RECOVERY WHEN CLINICALLY APPROPRIATE. OT/SOCIAL MEDIA PROJECT MANAGER TO EDUCATE ON HYPERTENSION SELF-MANAGEMENT OT/MARIANNE TO [...] OF SKIN INTEGRITY ISSUES FROM SBA TO WI WITHIN 2 WKS. PT STG: PATIENT WILL [...] TO SAFELY NEGOTIATE STAIRS FROM SBA TO WI WITH 2 STEPS W/O HANDRAIL VIA FRONT [...] Date/Time Encounter Type Admission Type Attending [facility] Care Department Encounter ID Discharge Date Discharge Status Discharge Condition Discharge Reason Percent Goals Met 2025-02-07 00:00:00 2025-04-07 00:00:00 Outpatient NEW ADMISSION [facility] [id number] 26.42
--- OUTSIDE RECORDS SUMMARY | 2025-04-06 18:00 | XMS_ITS | Clinical Summary ---
Author Organization Unknown Care Team Providers Care Webbing Inspector Name Role Phone DIGNA ARIEL, ESTRELLA Unavailable Unava dinora STOKES RN, FRANKIE Unavailable Unavailabl e KARI PT, DIDI Unavailable Unavailable NAT STATION OPERATOR, GAUDENCIO Unavailable Unavailabl e RADHA OT, ROLANDO Unavailable Unavailable JOANNE STEVEN, HATTIE Unavailable Unavailable Payers Payer Name Policy Type Policy Number Effective Date Expira tion Date MEDICARE.[facility] [id number] Problems Condition Name Condition Details Condition Category Status Onset Date Resolution Date Last Treatment Date Treating Clinician Comments 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 02-07 [...] OF PNEUMONIA (RECURRENT) Active 02-07 00:00: 00 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) USE OF SYSTEMIC STEROIDS Active [...] 80 mg tablet 02-07 00:00: 00 Yes [id number] CHOLESTEROL 1 tablet DAILY 1 tablet DAILY (route: oral) Med Classific ation: Cardiovas cular Therapy Agents digoxin 125 mcg (0.125 mg) tablet 02-07 00:00: 00 02-21 23:59 :00 No [id number] HEART RHYTHM 1 tablet DAILY 1 tablet DAILY (route: oral) Med Classific ation: Cardiovas cular Therapy Agents escitalopra m 10 mg tablet 02-07 00:00: 00 Yes [id number] MOOD 1 tablet DAILY 1 tablet DAILY (route: oral) Med Classific ation: Central Nervous System Agents ezetimibe 10 mg tablet 02-07 00:00: 00 Yes [id number] CHOLESTEROL 1 tablet DAILY 1 tablet DAILY (route: oral) Med Classific ation: Cardiovas cular Therapy Agents metoprolol succinate ER 25 mg tablet,exte nded release 24 hr 02-07 00:00: 00 02-21 23:59 :00 No [id number] BLOOD PRESSURE 0.5 tablet DAILY 0.5 tablet DAILY (route: oral) Med Classific ation: Cardiovas cular Therapy Agents pantoprazol e 40 mg tablet,joão yed release 02-07 00:00: 00 02-21 23:59 :00 No [id number] STOMACH ACID 1 tablet DAILY 1 tablet DAILY (route: oral) Med Classific ation: Gastroint estinal Therapy Agents prednisone 5 mg tablet 02-07 00:00: 00 Yes [id number] ADRENAL INSUFFICIEN CY 1 tablet DAILY 1 tablet DAILY (route: oral) Med Classific ation: Endocrine spironolact one 25 mg tablet 02-07 00:00: 00 Yes [id number] FLUID RETENTION 0.5 tablet DAILY 0.5 tablet DAILY (route: oral) Med Classific ation: Cardiovas cular Therapy Agents tamsulosin 0.4 mg capsule 02-07 00:00: 00 02-21 23:59 :00 No [id number] URINARY HEALTH 1 capsule DAILY 1 capsule DAILY (route: oral) Med Classific ation: Genitouri nary Therapy acetaminoph en 325 mg tablet 2024-05 00:00: 00 Yes [id number] PAIN 2 tablet 2 TIMES DAILY 2 tablet 2 TIMES DAILY (route: oral) Med Classific ation: Analgesic , Anti-infl ammatory or Antipyret ic aspirin 81 mg tablet 2024-05 00:00: 00 Yes [id number] ANTICOAGULA NT 1 tablet DAILY 1 tablet DAILY (route: oral) Med Classific ation: Hematolog ical Agents ipratropium 0.5 mg-albutero l 3 mg (2.5 mg base)/3 mL nebulizatio n soln 2024-05 00:00: 00 Yes [id number] COPD 3 mL EVERY 6 HOURS 3 mL EVERY 6 HOURS (route: inhalation ) Med Classific ation: Respirato ry Therapy Agents Lanoxin 62.5 mcg (0.0625 mg) tablet 2024-05 00:00: 00 Yes [id number] CHF 1 tablet DAILY 1 tablet DAILY (route: oral) Med Classific ation: Cardiovas cular Therapy Agents Lasix 20 mg tablet 2024-05 00:00: 00 Yes [id number] CHF 1 tablet DAILY 1 tablet DAILY (route: oral) Med Classific ation: Cardiovas cular Therapy Agents Toprol XL 25 mg tablet,exte nded release 2024-05 00:00: 00 Yes [id number] BP 25 mg DAILY 25 mg DAILY [...] SYSTEM MANAGEMENT; RN TO ASSESS AND TEACH, CATSHOVEL DRIVER/ARCHIVIST MILITARY HISTORY TO OBSERVE AND TEACH RELATED TO ALTERED RESPIRATORY STATUS TO MINIMIZE COMPLICATIONS AND REDUCE HOSPITALIZATION. [code = SN 1WK9 PT 1WK1 OT EFFECTIVE 02/10/2025K1 RESPIRATORY SYSTEM MANAGEMENT; RN TO ASSESS AND TEACH, CATSHOVEL DRIVER/ARCHIVIST MILITARY HISTORY TO OBSERVE AND TEACH RELATED TO ALTERED RESPIRATORY STATUS TO MINIMIZE COMPLICATIONS AND REDUCE HOSPITALIZATION.] Future Scheduled Test TRACHEOSTO MY CARE MANAGEMENT; RN/CATSHOVEL DRIVER/ARCHIVIST MILITARY HISTORY TO INSTRUCT PATIENT/CAREGIVER ON CARE AND MANAGEMENT OF TRACHEOSTOMY. RN/ CATSHOVEL DRIVER/ARCHIVIST MILITARY HISTORY TO PROVIDE SKILLED TEACHING ON TRACH COLLAR SUCTIONING PRN WITH 14 FR SUCTION CATHETER PER PATIENT TRACH CARE WITH INNER CANNULA: REMOVE INNER CANNULA, CLEANSE WITH NORMAL SALINE AND OR STERILE WATER AND REINSERT NON-DISPOSABLE CANNULA SIZE OF INNER CANNULA 5 BROOKS [code = TRACHEOSTOMY CARE MANAGEMENT; RN/CATSHOVEL DRIVER/ARCHIVIST MILITARY HISTORY TO INSTRUCT PATIENT/CAREGIVER ON CARE AND MANAGEMENT OF TRACHEOSTOMY. RN/ CATSHOVEL DRIVER/ARCHIVIST MILITARY HISTORY TO PROVIDE SKILLED TEACHING ON TRACH COLLAR SUCTIONING PRN WITH 14 FR SUCTION CATHETER PER PATIENT TRACH CARE WITH INNER CANNULA: REMOVE INNER CANNULA, CLEANSE WITH NORMAL SALINE AND OR STERILE WATER AND REINSERT NON-DISPOSABLE CANNULA SIZE OF INNER CANNULA 5 BROOKS] Future Scheduled Test FALL REDUC TION MANAGEMENT; RN TO ASSESS AND OBSERVE, CATSHOVEL DRIVER/ARCHIVIST MILITARY HISTORY TO OBSERVE FALL RISK FACTORS AND EDUCATE PATIENT/CAREGIVER ON STRATEGIES TO MINIMIZE THE RISK OF FALLING. [code = FALL REDUCTION MANAGEMENT; RN TO ASSESS AND OBSERVE, CATSHOVEL DRIVER/ARCHIVIST MILITARY HISTORY TO OBSERVE FALL RISK FACTORS AND EDUCATE PATIENT/CAREGIVER ON STRATEGIES TO MINIMIZE THE RISK OF FALLING.] Future Scheduled Test ANEMIA MAN AGEMENT; RN TO ASSESS AND TEACH, ARCHIVIST MILITARY HISTORY/CATSHOVEL DRIVER TO OBSERVE AND TEACH AND PROVIDE EDUCATION ON ANEMIA. [code = ANEMIA MANAGEMENT; RN TO ASSESS AND TEACH, ARCHIVIST MILITARY HISTORY/CATSHOVEL DRIVER TO OBSERVE AND TEACH AND PROVIDE EDUCATION ON ANEMIA.] Future Scheduled Test RN TO OBSE RVE, ASSESS, EVALUATE, AND DEVELOP AN INDIVIDUALIZED PLAN OF CARE. AGENCY MAY ACCEPT ORDERS FROM CONSULTING PHYSICIANS RN TO OBSERVE AND ASSESS, CATSHOVEL DRIVER/ARCHIVIST MILITARY HISTORY TO OBSERVE FOR RISK FOR FALLS AND INSTRUCT IN FALL PREVENTION, HOME SAFETY, MEDICATION MANAGEMENT, INFECTION PREVENTION, AND NUTRITION MANAGEMENT. RN/CATSHOVEL DRIVER/ARCHIVIST MILITARY HISTORY NURSE MAY PERFORM O2 SATURATION LEVEL ON ADMISSION AND PRN FOR RN TO ASSESS/CATSHOVEL DRIVER TO OBSERVE PATIENT, WITH NOTIFICATION TO THE PHYSICIAN IF SATURATION IS 90% IN THE ABSENCE OF MORE SPECIFIC PARAMETERS FROM THE PHYSICIAN. AGENCY MAY PERFORM A RESUMPTION OF CARE VISIT FOLLOWING ANY HOSPITAL ADMISSION. RN/CATSHOVEL DRIVER/ARCHIVIST MILITARY HISTORY TO MONITOR CO-MORBID CONDITIONS LISTED ON THE PLAN OF CARE AND ANY NEW CONDITIONS THAT PRESENT THEMSELVES DURING THIS EPISODE TO IDENTIFY CHANGES AND INTERVENE TO MINIMIZE COMPLICATIONS. [code = RN TO OBSERVE, ASSESS, EVALUATE, AND DEVELOP AN INDIVIDUALIZED PLAN OF CARE. AGENCY MAY ACCEPT ORDERS FROM CONSULTING PHYSICIANS RN TO OBSERVE AND ASSESS, CATSHOVEL DRIVER/ARCHIVIST MILITARY HISTORY TO OBSERVE FOR RISK FOR FALLS AND INSTRUCT IN FALL PREVENTION, HOME SAFETY, MEDICATION MANAGEMENT, INFECTION PREVENTION, AND NUTRITION MANAGEMENT. RN/CATSHOVEL DRIVER/ARCHIVIST MILITARY HISTORY NURSE MAY PERFORM O2 SATURATION LEVEL ON ADMISSION AND PRN FOR RN TO ASSESS/CATSHOVEL DRIVER TO OBSERVE PATIENT, WITH NOTIFICATION TO THE PHYSICIAN IF SATURATION IS 90% IN THE ABSENCE OF MORE SPECIFIC PARAMETERS FROM THE PHYSICIAN. AGENCY MAY PERFORM A RESUMPTION OF CARE VISIT FOLLOWING ANY HOSPITAL ADMISSION. RN/CATSHOVEL DRIVER/ARCHIVIST MILITARY HISTORY TO MONITOR CO-MORBID CONDITIONS LISTED ON THE PLAN OF CARE AND ANY NEW CONDITIONS THAT PRESENT THEMSELVES DURING THIS EPISODE TO IDENTIFY CHANGES AND INTERVENE TO MINIMIZE COMPLICATIONS.] Future Scheduled Test PAIN MANAG EMENT; RN TO ASSESS AND TEACH, ARCHIVIST MILITARY HISTORY/CATSHOVEL DRIVER TO OBSERVE AND TEACH AND PROVIDE EDUCATION ON PAIN MANAGEMENT TECHNIQUES. [code = PAIN MANAGEMENT; RN TO ASSESS AND TEACH, ARCHIVIST MILITARY HISTORY/CATSHOVEL DRIVER TO OBSERVE AND TEACH AND PROVIDE EDUCATION ON PAIN MANAGEMENT TECHNIQUES.] Future Scheduled Test RISK FOR H OSPITALIZATION; RN TO ASSESS/TEACH, ARCHIVIST MILITARY HISTORY/CATSHOVEL DRIVER TO OBSERVE/TEACH PATIENT/CAREGIVER ON RISK FOR HOSPITALIZATION/EMERGENCY ROOM VISITS, TEACH SIGNS AND SYMPTOMS THAT PUT PATIENT AT RISK, WHEN TO NOTIFY NURSE/PHYSICIAN OF COMPLICATIONS/DECLINE, AND WHEN TO CALL 911. [code = RISK FOR HOSPITALIZATION; RN TO ASSESS/TEACH, ARCHIVIST MILITARY HISTORY/CATSHOVEL DRIVER TO OBSERVE/TEACH PATIENT/CAREGIVER ON RISK FOR HOSPITALIZATION/EMERGENCY ROOM VISITS, TEACH SIGNS AND SYMPTOMS THAT PUT PATIENT AT RISK, WHEN TO NOTIFY NURSE/PHYSICIAN OF COMPLICATIONS/DECLINE, AND WHEN TO CALL 911.] Future Scheduled Test CARDIOVASC ULAR SYSTEM; RN TO ASSESS/TEACH, CATSHOVEL DRIVER/ARCHIVIST MILITARY HISTORY TO OBSERVE/TEACH RELATED TO ALTERED CARDIOVASCULAR STATUS TO MINIMIZE COMPLICATIONS AND REDUCE HOSPITALIZATION. [code = CARDIOVASCULAR SYSTEM; RN TO ASSESS/TEACH, CATSHOVEL DRIVER/ARCHIVIST MILITARY HISTORY TO OBSERVE/TEACH RELATED TO ALTERED CARDIOVASCULAR STATUS TO MINIMIZE COMPLICATIONS AND REDUCE HOSPITALIZATION.] Future Scheduled Test HYPERTENSI ON MANAGEMENT; RN TO ASSESS AND TEACH, CATSHOVEL DRIVER/ARCHIVIST MILITARY HISTORY TO OBSERVE AND TEACH WARNING SIGNS AND SYMPTOMS TO AVOID HOSPITALIZATION. [code = HYPERTENSION MANAGEMENT; RN TO ASSESS AND TEACH, CATSHOVEL DRIVER/ARCHIVIST MILITARY HISTORY TO OBSERVE AND TEACH WARNING SIGNS AND SYMPTOMS TO AVOID HOSPITALIZATION.] Future Scheduled Test HEART FAIL URE MONITORING RN/ARCHIVIST MILITARY HISTORY/CATSHOVEL DRIVER TO MONITOR PATIENT FOR SIGNS AND SYMPTOMS OF HEART FAILURE EXACERBATION, MONITOR FOR ADHERENCE WITH MEDICATION AND HEART FAILURE MANAGEMENT REGIMEN. [code = HEART FAILURE MONITORING RN/ARCHIVIST MILITARY HISTORY/CATSHOVEL DRIVER TO MONITOR PATIENT FOR SIGNS AND SYMPTOMS OF HEART FAILURE EXACERBATION, MONITOR FOR ADHERENCE WITH MEDICATION AND HEART FAILURE MANAGEMENT REGIMEN.] Future Scheduled Test DIABETES M ONITORING RN/ARCHIVIST MILITARY HISTORY/CATSHOVEL DRIVER TO MONITOR BLOOD SUGAR LOG FOR BLOOD SUGAR READINGS THAT ARE BEING CHECKED BY PATIENT, CAREGIVER NEEDED FOR SIGNS AND SYMPTOMS OF HYPER/HYPOGLYCEMIA. PATIENT THERAPEUTIC BLOOD SUGAR PARAMETERS ARE 70 - 300. REPORT BLOOD SUGARS OUT OF RANGE TO PHYSICIAN. NURSE MAY PERFORM FINGER STICK BLOOD GLUCOSE NEEDED FOR SIGNS AND SYMPTOMS OF HYPO AND HYPERGLYCEMIA. RN/ARCHIVIST MILITARY HISTORY/CATSHOVEL DRIVER TO MONITOR ADHERENCE OF PATIENT/CAREGIVER PERFORMING DIABETIC FOOT CARE AND MAY PERFORM DIABETIC FOOT CARE PRN. RN/ARCHIVIST MILITARY HISTORY/CATSHOVEL DRIVER TO MONITOR FOR ADHERENCE TO DIABETIC SELF-CARE AND MANAGEMENT INCLUDING MEDICATIONS. [code = DIABETES MONITORING RN/ARCHIVIST MILITARY HISTORY/CATSHOVEL DRIVER TO MONITOR BLOOD SUGAR LOG FOR BLOOD SUGAR READINGS THAT ARE BEING CHECKED BY PATIENT, CAREGIVER NEEDED FOR SIGNS AND SYMPTOMS OF HYPER/HYPOGLYCEMIA. PATIENT THERAPEUTIC BLOOD SUGAR PARAMETERS ARE 70 - 300. REPORT BLOOD SUGARS OUT OF RANGE TO PHYSICIAN. NURSE MAY PERFORM FINGER STICK BLOOD GLUCOSE NEEDED FOR SIGNS AND SYMPTOMS OF HYPO AND HYPERGLYCEMIA. RN/ARCHIVIST MILITARY HISTORY/CATSHOVEL DRIVER TO MONITOR ADHERENCE OF PATIENT/CAREGIVER PERFORMING DIABETIC FOOT CARE AND MAY PERFORM DIABETIC FOOT CARE PRN. RN/ARCHIVIST MILITARY HISTORY/CATSHOVEL DRIVER TO MONITOR FOR ADHERENCE TO DIABETIC SELF-CARE AND MANAGEMENT INCLUDING MEDICATIONS.] Future Scheduled Test HYPOTENSIO N MANAGEMENT; RN TO ASSESS AND TEACH/ CATSHOVEL DRIVER /ARCHIVIST MILITARY HISTORY TO OBSERVE AND TEACH WARNING SIGNS AND SYMPTOMS TO AVOID HOSPITALIZATION. [code = HYPOTENSION MANAGEMENT; RN TO ASSESS AND TEACH/ CATSHOVEL DRIVER /ARCHIVIST MILITARY HISTORY TO OBSERVE AND TEACH WARNING SIGNS AND SYMPTOMS TO AVOID HOSPITALIZATION.] Future Scheduled Test ARRHYTHMIA MANAGEMENT; RN TO ASSESS AND TEACH, CATSHOVEL DRIVER/ARCHIVIST MILITARY HISTORY TO OBSERVE AND TEACH WARNING SIGNS AND SYMPTOMS TO AVOID HOSPITALIZATION. [code = ARRHYTHMIA MANAGEMENT; RN TO ASSESS AND TEACH, CATSHOVEL DRIVER/ARCHIVIST MILITARY HISTORY TO OBSERVE AND TEACH WARNING SIGNS AND SYMPTOMS TO AVOID HOSPITALIZATION.] Future Scheduled Test MEDICATION MANAGEMENT; RN/CATSHOVEL DRIVER/ARCHIVIST MILITARY HISTORY TO REVIEW MEDICATIONS FOR INTERACTIONS, EFFECTIVENESS OF DRUG THERAPY, AND SIGNS/SYMPTOMS OF ADVERSE REACTIONS. MAY INSTRUCT AND REINFORCE MEDICATION TEACHING RELATED TO THE USE OF MEDICATIONS, DOSAGE, FREQUENCY, PURPOSE, SIDE EFFECTS, AND TO REPORT COMPLICATIONS. [code = MEDICATION MANAGEMENT; RN/CATSHOVEL DRIVER/ARCHIVIST MILITARY HISTORY TO REVIEW MEDICATIONS FOR INTERACTIONS, EFFECTIVENESS OF [...] EVAL UATE, OBSERVE / ASSESS, AND MONITOR, STATION OPERATOR TO OBSERVE AND MONITOR, PROVIDE SKILLED THERAPEUTIC INTERVENTION, ACTIVITY, EDUCATION, AND TRAINING TO ADDRESS GEN. WEAKNESS, POOR OVERALL ACTIVITY TOLERANCE, AND FUNCTIONAL LIMITATIONS IMPACTING SAFETY AND INDEPENDENCE. BED MOBILITY (PT/STATION OPERATOR) PT/STATION OPERATOR TO PROVIDE GAIT TRAINING FOR IMPROVED MOBILITY AND /OR TO NORMALIZE GAIT PATTERN THERAPEUTIC EXERCISES AND ESTABLISHING A HOME EXERCISE PROGRAM (PT/STATION OPERATOR) PT/STATION OPERATOR TO PROVIDE STAIR TRAINING PT / STATION OPERATOR TO MONITOR AND EDUCATE ON OXYGEN SATURATION DURING ADLS/IADLS, NOTIFY PHYSICIAN AND/OR THE RN CLINICAL TRANSPORTATION ASSISTANT FOR PHYSICIAN NOTIFICATION AND IF O2 SATS BELOW PHYSICIAN ORDERED PARAMETERS AFTER 10 MIN OF REST PT / STATION OPERATOR TO OBSERVE FOR EARLY SIGNS AND SYMPTOMS OF DEPRESSION OR DEPRESSION GETTING WORSE AND TO EDUCATE ON HOW TO FIND HELP. PT / STATION OPERATOR MAY EDUCATE ON PAIN MANAGEMENT CLINICALLY INDICATED, INCLUDING NON-PHARMACOLOGICAL PAIN REDUCTION TECHNIQUES PT / STATION OPERATOR TO MONITOR FOR HYPO/HYPERGLYCEMIA AND CONDUCT ROUTINE FOOT INSPECTIONS. RECORD PATIENT REPORTED BLOOD SUGAR LEVELS AND NOTIFY PHYSICIAN AND/OR THE RN CLINICAL TRANSPORTATION ASSISTANT FOR PHYSICIAN NOTIFICATION IF BLOOD SUGAR LEVELS ARE OUTSIDE ORDERED PARAMETERS. TEACH PATIENT/CAREGIVER ON DAILY FOOT INSPECTIONS PT / STATION OPERATOR TO INSTRUCT PATIENT/CAREGIVER ON RISK FOR HOSPITALIZATION/EMERGENCY ROOM VISITS, TEACH SIGNS AND SYMPTOMS THAT PUT PATIENT AT RISK, WHEN TO NOTIFY NURSE/PHYSICIAN OF COMPLICATIONS/DECLINE, AND WHEN TO CALL 911. PT/STATION OPERATOR TO EDUCATE ON ARTHRITIS SELF-MANAGEMENT PT / STATION OPERATOR TO EDUCATE ON HEART FAILURE SELF-MANAGEMENT PT / STATION OPERATOR TO EDUCATE ON HYPERTENSION SELF-MANAGEMENT PT TO ASSESS / STATION OPERATOR TO MONITOR CARDIO/RESPIRATORY SYSTEM; AND NOTIFY THE PHYSICIAN AND/OR THE RN CLINICAL TRANSPORTATION ASSISTANT FOR PHYSICIAN NOTIFICATION FOR EARLY SIGNS AND SYMPTOMS OF EXACERBATION OR DETERIORATION. PT / STATION OPERATOR TO EDUCATE ON ATRIAL FIBRILLATION SELF-MANAGEMENT. PT / STATION OPERATOR TO EDUCATE ON PNEUMONIA / ASPIRATION PNEUMONIA SELF-MANAGEMENT. PT/STATION OPERATOR TO IDENTIFY FALL RISK FACTORS; EDUCATE THE PATIENT/CAREGIVER ON WAYS TO REDUCE FALL RISK FACTORS AND ESTABLISH HOME EXERCISE PROGRAM TO MINIMIZE FALL RISK. MAY TEACH THE PATIENT FLOOR RECOVERY WHEN CLINICALLY APPROPRIATE [code = PT TO EVALUATE, OBSERVE / ASSESS, AND MONITOR, STATION OPERATOR TO OBSERVE AND MONITOR, PROVIDE SKILLED THERAPEUTIC INTERVENTION, ACTIVITY, EDUCATION, AND TRAINING TO ADDRESS GEN. WEAKNESS, POOR OVERALL ACTIVITY TOLERANCE, AND FUNCTIONAL LIMITATIONS IMPACTING SAFETY AND INDEPENDENCE. BED MOBILITY (PT/STATION OPERATOR) PT/STATION OPERATOR TO PROVIDE GAIT TRAINING FOR IMPROVED MOBILITY AND /OR TO NORMALIZE GAIT PATTERN THERAPEUTIC EXERCISES AND ESTABLISHING A HOME EXERCISE PROGRAM (PT/STATION OPERATOR) PT/STATION OPERATOR TO PROVIDE STAIR TRAINING PT / STATION OPERATOR TO MONITOR AND EDUCATE ON OXYGEN SATURATION DURING ADLS/IADLS, NOTIFY PHYSICIAN AND/OR THE RN CLINICAL TRANSPORTATION ASSISTANT FOR PHYSICIAN NOTIFICATION AND IF O2 SATS BELOW PHYSICIAN ORDERED PARAMETERS AFTER 10 MIN OF REST PT / STATION OPERATOR TO OBSERVE FOR EARLY SIGNS AND SYMPTOMS OF DEPRESSION OR DEPRESSION GETTING WORSE AND TO EDUCATE ON HOW TO FIND HELP. PT / STATION OPERATOR MAY EDUCATE ON PAIN MANAGEMENT CLINICALLY INDICATED, INCLUDING NON-PHARMACOLOGICAL PAIN REDUCTION TECHNIQUES PT / STATION OPERATOR TO MONITOR FOR HYPO/HYPERGLYCEMIA AND CONDUCT ROUTINE FOOT INSPECTIONS. RECORD PATIENT REPORTED BLOOD SUGAR LEVELS AND NOTIFY PHYSICIAN AND/OR THE RN CLINICAL TRANSPORTATION ASSISTANT FOR PHYSICIAN NOTIFICATION IF BLOOD SUGAR LEVELS ARE OUTSIDE ORDERED PARAMETERS. TEACH PATIENT/CAREGIVER ON DAILY FOOT INSPECTIONS PT / STATION OPERATOR TO INSTRUCT PATIENT/CAREGIVER ON RISK FOR HOSPITALIZATION/EMERGENCY ROOM VISITS, TEACH SIGNS AND SYMPTOMS THAT PUT PATIENT AT RISK, WHEN TO NOTIFY NURSE/PHYSICIAN OF COMPLICATIONS/DECLINE, AND WHEN TO CALL 911. PT/STATION OPERATOR TO EDUCATE ON ARTHRITIS SELF-MANAGEMENT PT / STATION OPERATOR TO EDUCATE ON HEART FAILURE SELF-MANAGEMENT PT / STATION OPERATOR TO EDUCATE ON HYPERTENSION SELF-MANAGEMENT PT TO ASSESS / STATION OPERATOR TO MONITOR CARDIO/RESPIRATORY SYSTEM; AND NOTIFY THE PHYSICIAN AND/OR THE RN CLINICAL TRANSPORTATION ASSISTANT FOR PHYSICIAN NOTIFICATION FOR EARLY SIGNS AND SYMPTOMS OF EXACERBATION OR DETERIORATION. PT / STATION OPERATOR TO EDUCATE ON ATRIAL FIBRILLATION SELF-MANAGEMENT. PT / STATION OPERATOR TO EDUCATE ON PNEUMONIA / ASPIRATION PNEUMONIA SELF-MANAGEMENT. PT/STATION OPERATOR TO IDENTIFY FALL RISK FACTORS; EDUCATE THE PATIENT/CAREGIVER ON WAYS TO REDUCE FALL RISK FACTORS AND ESTABLISH HOME EXERCISE PROGRAM TO MINIMIZE FALL RISK. MAY TEACH THE PATIENT FLOOR RECOVERY WHEN CLINICALLY APPROPRIATE] Future Scheduled Test AGENCY MAY PERFORM A RESUMPTION OF CARE VISIT FOLLOWING ANY HOSPITAL ADMISSION. OT TO EVALUATE, OBSERVE / ASSESS, AND MONITOR, STRATEGIC ANALYST TO OBSERVE AND MONITOR, PROVIDE SKILLED THERAPEUTIC INTERVENTION, ACTIVITY, EDUCATION, AND TRAINING TO ADDRESS SAFETY AND INDEPENDENCE OF ADLS AND FUNCTIONAL TRANSFERS IN HOME ENVIRONMENT. ACTIVITIES OF DAILY LIVING (OT/MARIANNE) THERAPEUTIC EXERCISE (OT/STRATEGIC ANALYST) ENERGY CONSERVATION/ACTIVITY DEMAND (OT/STRATEGIC ANALYST) OT/STRATEGIC ANALYST TO MONITOR AND EDUCATE ON OXYGEN SATURATION DURING ADLS/IADLS, NOTIFY PHYSICIAN AND/OR THE RN CLINICAL TRANSPORTATION ASSISTANT FOR PHYSICIAN NOTIFICATION AND IF O2 SATS BELOW 90% AFTER 10 MIN OF REST. OT / STRATEGIC ANALYST TO IDENTIFY FALL RISK FACTORS; EDUCATE THE PATIENT/CAREGIVER ON WAYS TO REDUCE FALL RISK FACTORS AND ESTABLISH HOME EXERCISE PROGRAM TO MINIMIZE FALL RISK. MAY TEACH THE PATIENT FLOOR RECOVERY WHEN CLINICALLY APPROPRIATE. OT/STRATEGIC ANALYST TO EDUCATE ON HYPERTENSION SELF-MANAGEMENT OT/MARIANNE TO EDUCATE ON ATRIAL FIBRILLATION SELF-MANAGEMENT. [code = AGENCY MAY PERFORM A RESUMPTION OF CARE VISIT FOLLOWING ANY HOSPITAL ADMISSION. OT TO EVALUATE, OBSERVE / ASSESS, AND MONITOR, STRATEGIC ANALYST TO OBSERVE AND MONITOR, PROVIDE SKILLED THERAPEUTIC INTERVENTION, ACTIVITY, EDUCATION, AND TRAINING TO ADDRESS SAFETY AND INDEPENDENCE OF ADLS AND FUNCTIONAL TRANSFERS IN HOME ENVIRONMENT. ACTIVITIES OF DAILY LIVING (OT/MARIANNE) THERAPEUTIC EXERCISE (OT/STRATEGIC ANALYST) ENERGY CONSERVATION/ACTIVITY DEMAND (OT/MARIANNE) OT/STRATEGIC ANALYST TO MONITOR AND EDUCATE ON OXYGEN SATURATION DURING ADLS/IADLS, NOTIFY PHYSICIAN AND/OR THE RN CLINICAL TRANSPORTATION ASSISTANT FOR PHYSICIAN NOTIFICATION AND IF O2 SATS BELOW 90% AFTER 10 MIN OF REST. OT / MARIANNE TO IDENTIFY FALL RISK FACTORS; EDUCATE THE PATIENT/CAREGIVER ON WAYS TO REDUCE FALL RISK FACTORS AND ESTABLISH HOME EXERCISE PROGRAM TO MINIMIZE FALL RISK. MAY TEACH THE PATIENT FLOOR RECOVERY WHEN CLINICALLY APPROPRIATE. OT/STRATEGIC ANALYST TO EDUCATE ON HYPERTENSION SELF-MANAGEMENT OT/MARIANNE TO [...] OF SKIN INTEGRITY ISSUES FROM SBA TO ID WITHIN 2 WKS. PT STG: PATIENT WILL [...] TO SAFELY NEGOTIATE STAIRS FROM SBA TO ID WITH 2 STEPS W/O HANDRAIL VIA FRONT [...] End Date/Time Encounter Type Admission Type Attending [facility] [[email or web address] Care Department Encounter ID Discharge Date Discharge Status Discharge Condition Discharge Reason Percent Goals Met 2025-02-07 00:00:00 2025-04-07 00:00:00 Outpatient NEW ADMISSION [facility] [id number]
--- OUTSIDE RECORDS SUMMARY | 2025-04-06 18:00 | XMS_ITS | Clinical Summary ---
Author Organization Unknown Care Team Providers Care Electric Well Logging Operator Name Role Phone DIGNA ARIEL, ESTRELLA Unavailable Unava dinora STOKES RN, FRANKIE Unavailable Unavailabl e KARI PT, DIDI Unavailable Unavailable NAT PHYSICIAN UNDERWRITER, GAUDENCIO Unavailable Unavailabl e RADHA OT, ROLANDO Unavailable Unavailable JOANNE STEVEN, HATTIE Unavailable Unavailable Payers Payer Name Policy Type Policy Number Effective Date Expira tion Date MEDICARE.[facility] [id number] Problems Condition Name Condition Details Condition Category Status Onset Date Resolution Date Last Treatment Date Treating Clinician Comments 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 02-07 [...] OF PNEUMONIA (RECURRENT) Active 02-07 00:00: 00 [employer]OR [employer]ES (CURRENT) USE OF SYSTEMIC STEROIDS Active 02-07 [...] 80 mg tablet 02-07 00:00: 00 Yes [id number] CHOLESTEROL 1 tablet DAILY 1 tablet DAILY (route: oral) Med Classific ation: Cardiovas cular Therapy Agents digoxin 125 mcg (0.125 mg) tablet 02-07 00:00: 00 02-21 23:59 :00 No [id number] HEART RHYTHM 1 tablet DAILY 1 tablet DAILY (route: oral) Med Classific ation: Cardiovas cular Therapy Agents escitalopra m 10 mg tablet 02-07 00:00: 00 Yes [id number] MOOD 1 tablet DAILY 1 tablet DAILY (route: oral) Med Classific ation: Central Nervous System Agents ezetimibe 10 mg tablet 02-07 00:00: 00 Yes [id number] CHOLESTEROL 1 tablet DAILY 1 tablet DAILY (route: oral) Med Classific ation: Cardiovas cular Therapy Agents metoprolol succinate ER 25 mg tablet,exte nded release 24 hr 02-07 00:00: 00 02-21 23:59 :00 No [id number] BLOOD PRESSURE 0.5 tablet DAILY 0.5 tablet DAILY (route: oral) Med Classific ation: Cardiovas cular Therapy Agents pantoprazol e 40 mg tablet,joão yed release 02-07 00:00: 00 02-21 23:59 :00 No [id number] STOMACH ACID 1 tablet DAILY 1 tablet DAILY (route: oral) Med Classific ation: Gastroint estinal Therapy Agents prednisone 5 mg tablet 02-07 00:00: 00 Yes [id number] ADRENAL INSUFFICIEN CY 1 tablet DAILY 1 tablet DAILY (route: oral) Med Classific ation: Endocrine spironolact one 25 mg tablet 02-07 00:00: 00 Yes [id number] FLUID RETENTION 0.5 tablet DAILY 0.5 tablet DAILY (route: oral) Med Classific ation: Cardiovas cular Therapy Agents tamsulosin 0.4 mg capsule 02-07 00:00: 00 02-21 23:59 :00 No [id number] URINARY HEALTH 1 capsule DAILY 1 capsule DAILY (route: oral) Med Classific ation: Genitouri nary Therapy acetaminoph en 325 mg tablet 2024-05 00:00: 00 Yes [id number] PAIN 2 tablet 2 TIMES DAILY 2 tablet 2 TIMES DAILY (route: oral) Med Classific ation: Analgesic , Anti-infl ammatory or Antipyret ic aspirin 81 mg tablet 2024-05 00:00: 00 Yes [id number] ANTICOAGULA NT 1 tablet DAILY 1 tablet DAILY (route: oral) Med Classific ation: Hematolog ical Agents ipratropium 0.5 mg-albutero l 3 mg (2.5 mg base)/3 mL nebulizatio n soln 2024-05 00:00: 00 Yes [id number] COPD 3 mL EVERY 6 HOURS 3 mL EVERY 6 HOURS (route: inhalation ) Med Classific ation: Respirato ry Therapy Agents Lanoxin 62.5 mcg (0.0625 mg) tablet 2024-05 00:00: 00 Yes [id number] CHF 1 tablet DAILY 1 tablet DAILY (route: oral) Med Classific ation: Cardiovas cular Therapy Agents Lasix 20 mg tablet 2024-05 00:00: 00 Yes [id number] CHF 1 tablet DAILY 1 tablet DAILY (route: oral) Med Classific ation: Cardiovas cular Therapy Agents Toprol XL 25 mg tablet,exte nded release 2024-05 00:00: 00 Yes [id number] BP 25 mg DAILY 25 mg DAILY [...] SYSTEM MANAGEMENT; RN TO ASSESS AND TEACH, TYPESETTER APPRENTICE/SALES TEAM MANAGER TO OBSERVE AND TEACH RELATED TO ALTERED RESPIRATORY STATUS TO MINIMIZE COMPLICATIONS AND REDUCE HOSPITALIZATION. [code = SN 1WK9 PT 1WK1 OT EFFECTIVE 02/10/2025K1 RESPIRATORY SYSTEM MANAGEMENT; RN TO ASSESS AND TEACH, TYPESETTER APPRENTICE/SALES TEAM MANAGER TO OBSERVE AND TEACH RELATED TO ALTERED RESPIRATORY STATUS TO MINIMIZE COMPLICATIONS AND REDUCE HOSPITALIZATION.] Future Scheduled Test TRACHEOSTO MY CARE MANAGEMENT; RN/TYPESETTER APPRENTICE/SALES TEAM MANAGER TO INSTRUCT PATIENT/CAREGIVER ON CARE AND MANAGEMENT OF TRACHEOSTOMY. RN/ TYPESETTER APPRENTICE/SALES TEAM MANAGER TO PROVIDE SKILLED TEACHING ON TRACH COLLAR SUCTIONING PRN WITH 14 FR SUCTION CATHETER PER PATIENT TRACH CARE WITH INNER CANNULA: REMOVE INNER CANNULA, CLEANSE WITH NORMAL SALINE AND OR STERILE WATER AND REINSERT NON-DISPOSABLE CANNULA SIZE OF INNER CANNULA 5 BROOKS [code = TRACHEOSTOMY CARE MANAGEMENT; RN/TYPESETTER APPRENTICE/SALES TEAM MANAGER TO INSTRUCT PATIENT/CAREGIVER ON CARE AND MANAGEMENT OF TRACHEOSTOMY. RN/ TYPESETTER APPRENTICE/SALES TEAM MANAGER TO PROVIDE SKILLED TEACHING ON TRACH COLLAR SUCTIONING PRN WITH 14 FR SUCTION CATHETER PER PATIENT TRACH CARE WITH INNER CANNULA: REMOVE INNER CANNULA, CLEANSE WITH NORMAL SALINE AND OR STERILE WATER AND REINSERT NON-DISPOSABLE CANNULA SIZE OF INNER CANNULA 5 BROOKS] Future Scheduled Test FALL REDUC TION MANAGEMENT; RN TO ASSESS AND OBSERVE, TYPESETTER APPRENTICE/SALES TEAM MANAGER TO OBSERVE FALL RISK FACTORS AND EDUCATE PATIENT/CAREGIVER ON STRATEGIES TO MINIMIZE THE RISK OF FALLING. [code = FALL REDUCTION MANAGEMENT; RN TO ASSESS AND OBSERVE, TYPESETTER APPRENTICE/SALES TEAM MANAGER TO OBSERVE FALL RISK FACTORS AND EDUCATE PATIENT/CAREGIVER ON STRATEGIES TO MINIMIZE THE RISK OF FALLING.] Future Scheduled Test ANEMIA MAN AGEMENT; RN TO ASSESS AND TEACH, SALES TEAM MANAGER/TYPESETTER APPRENTICE TO OBSERVE AND TEACH AND PROVIDE EDUCATION ON ANEMIA. [code = ANEMIA MANAGEMENT; RN TO ASSESS AND TEACH, SALES TEAM MANAGER/TYPESETTER APPRENTICE TO OBSERVE AND TEACH AND PROVIDE EDUCATION ON ANEMIA.] Future Scheduled Test RN TO OBSE RVE, ASSESS, EVALUATE, AND DEVELOP AN INDIVIDUALIZED PLAN OF CARE. AGENCY MAY ACCEPT ORDERS FROM CONSULTING PHYSICIANS RN TO OBSERVE AND ASSESS, TYPESETTER APPRENTICE/SALES TEAM MANAGER TO OBSERVE FOR RISK FOR FALLS AND INSTRUCT IN FALL PREVENTION, HOME SAFETY, MEDICATION MANAGEMENT, INFECTION PREVENTION, AND NUTRITION MANAGEMENT. RN/TYPESETTER APPRENTICE/SALES TEAM MANAGER NURSE MAY PERFORM O2 SATURATION LEVEL ON ADMISSION AND PRN FOR RN TO ASSESS/TYPESETTER APPRENTICE TO OBSERVE PATIENT, WITH NOTIFICATION TO THE PHYSICIAN IF SATURATION IS 90% IN THE ABSENCE OF MORE SPECIFIC PARAMETERS FROM THE PHYSICIAN. AGENCY MAY PERFORM A RESUMPTION OF CARE VISIT FOLLOWING ANY HOSPITAL ADMISSION. RN/TYPESETTER APPRENTICE/SALES TEAM MANAGER TO MONITOR CO-MORBID CONDITIONS LISTED ON THE PLAN OF CARE AND ANY NEW CONDITIONS THAT PRESENT THEMSELVES DURING THIS EPISODE TO IDENTIFY CHANGES AND INTERVENE TO MINIMIZE COMPLICATIONS. [code = RN TO OBSERVE, ASSESS, EVALUATE, AND DEVELOP AN INDIVIDUALIZED PLAN OF CARE. AGENCY MAY ACCEPT ORDERS FROM CONSULTING PHYSICIANS RN TO OBSERVE AND ASSESS, TYPESETTER APPRENTICE/SALES TEAM MANAGER TO OBSERVE FOR RISK FOR FALLS AND INSTRUCT IN FALL PREVENTION, HOME SAFETY, MEDICATION MANAGEMENT, INFECTION PREVENTION, AND NUTRITION MANAGEMENT. RN/TYPESETTER APPRENTICE/SALES TEAM MANAGER NURSE MAY PERFORM O2 SATURATION LEVEL ON ADMISSION AND PRN FOR RN TO ASSESS/TYPESETTER APPRENTICE TO OBSERVE PATIENT, WITH NOTIFICATION TO THE PHYSICIAN IF SATURATION IS 90% IN THE ABSENCE OF MORE SPECIFIC PARAMETERS FROM THE PHYSICIAN. AGENCY MAY PERFORM A RESUMPTION OF CARE VISIT FOLLOWING ANY HOSPITAL ADMISSION. RN/TYPESETTER APPRENTICE/SALES TEAM MANAGER TO MONITOR CO-MORBID CONDITIONS LISTED ON THE PLAN OF CARE AND ANY NEW CONDITIONS THAT PRESENT THEMSELVES DURING THIS EPISODE TO IDENTIFY CHANGES AND INTERVENE TO MINIMIZE COMPLICATIONS.] Future Scheduled Test PAIN MANAG EMENT; RN TO ASSESS AND TEACH, SALES TEAM MANAGER/TYPESETTER APPRENTICE TO OBSERVE AND TEACH AND PROVIDE EDUCATION ON PAIN MANAGEMENT TECHNIQUES. [code = PAIN MANAGEMENT; RN TO ASSESS AND TEACH, SALES TEAM MANAGER/TYPESETTER APPRENTICE TO OBSERVE AND TEACH AND PROVIDE EDUCATION ON PAIN MANAGEMENT TECHNIQUES.] Future Scheduled Test RISK FOR H OSPITALIZATION; RN TO ASSESS/TEACH, SALES TEAM MANAGER/TYPESETTER APPRENTICE TO OBSERVE/TEACH PATIENT/CAREGIVER ON RISK FOR HOSPITALIZATION/EMERGENCY ROOM VISITS, TEACH SIGNS AND SYMPTOMS THAT PUT PATIENT AT RISK, WHEN TO NOTIFY NURSE/PHYSICIAN OF COMPLICATIONS/DECLINE, AND WHEN TO CALL 911. [code = RISK FOR HOSPITALIZATION; RN TO ASSESS/TEACH, SALES TEAM MANAGER/TYPESETTER APPRENTICE TO OBSERVE/TEACH PATIENT/CAREGIVER ON RISK FOR HOSPITALIZATION/EMERGENCY ROOM VISITS, TEACH SIGNS AND SYMPTOMS THAT PUT PATIENT AT RISK, WHEN TO NOTIFY NURSE/PHYSICIAN OF COMPLICATIONS/DECLINE, AND WHEN TO CALL 911.] Future Scheduled Test CARDIOVASC ULAR SYSTEM; RN TO ASSESS/TEACH, TYPESETTER APPRENTICE/SALES TEAM MANAGER TO OBSERVE/TEACH RELATED TO ALTERED CARDIOVASCULAR STATUS TO MINIMIZE COMPLICATIONS AND REDUCE HOSPITALIZATION. [code = CARDIOVASCULAR SYSTEM; RN TO ASSESS/TEACH, TYPESETTER APPRENTICE/SALES TEAM MANAGER TO OBSERVE/TEACH RELATED TO ALTERED CARDIOVASCULAR STATUS TO MINIMIZE COMPLICATIONS AND REDUCE HOSPITALIZATION.] Future Scheduled Test HYPERTENSI ON MANAGEMENT; RN TO ASSESS AND TEACH, TYPESETTER APPRENTICE/SALES TEAM MANAGER TO OBSERVE AND TEACH WARNING SIGNS AND SYMPTOMS TO AVOID HOSPITALIZATION. [code = HYPERTENSION MANAGEMENT; RN TO ASSESS AND TEACH, TYPESETTER APPRENTICE/SALES TEAM MANAGER TO OBSERVE AND TEACH WARNING SIGNS AND SYMPTOMS TO AVOID HOSPITALIZATION.] Future Scheduled Test HEART FAIL URE MONITORING RN/SALES TEAM MANAGER/TYPESETTER APPRENTICE TO MONITOR PATIENT FOR SIGNS AND SYMPTOMS OF HEART FAILURE EXACERBATION, MONITOR FOR ADHERENCE WITH MEDICATION AND HEART FAILURE MANAGEMENT REGIMEN. [code = HEART FAILURE MONITORING RN/SALES TEAM MANAGER/TYPESETTER APPRENTICE TO MONITOR PATIENT FOR SIGNS AND SYMPTOMS OF HEART FAILURE EXACERBATION, MONITOR FOR ADHERENCE WITH MEDICATION AND HEART FAILURE MANAGEMENT REGIMEN.] Future Scheduled Test DIABETES M ONITORING RN/SALES TEAM MANAGER/TYPESETTER APPRENTICE TO MONITOR BLOOD SUGAR LOG FOR BLOOD SUGAR READINGS THAT ARE BEING CHECKED BY PATIENT, CAREGIVER NEEDED FOR SIGNS AND SYMPTOMS OF HYPER/HYPOGLYCEMIA. PATIENT THERAPEUTIC BLOOD SUGAR PARAMETERS ARE 70 - 300. REPORT BLOOD SUGARS OUT OF RANGE TO PHYSICIAN. NURSE MAY PERFORM FINGER STICK BLOOD GLUCOSE NEEDED FOR SIGNS AND SYMPTOMS OF HYPO AND HYPERGLYCEMIA. RN/SALES TEAM MANAGER/TYPESETTER APPRENTICE TO MONITOR ADHERENCE OF PATIENT/CAREGIVER PERFORMING DIABETIC FOOT CARE AND MAY PERFORM DIABETIC FOOT CARE PRN. RN/SALES TEAM MANAGER/TYPESETTER APPRENTICE TO MONITOR FOR ADHERENCE TO DIABETIC SELF-CARE AND MANAGEMENT INCLUDING MEDICATIONS. [code = DIABETES MONITORING RN/SALES TEAM MANAGER/TYPESETTER APPRENTICE TO MONITOR BLOOD SUGAR LOG FOR BLOOD SUGAR READINGS THAT ARE BEING CHECKED BY PATIENT, CAREGIVER NEEDED FOR SIGNS AND SYMPTOMS OF HYPER/HYPOGLYCEMIA. PATIENT THERAPEUTIC BLOOD SUGAR PARAMETERS ARE 70 - 300. REPORT BLOOD SUGARS OUT OF RANGE TO PHYSICIAN. NURSE MAY PERFORM FINGER STICK BLOOD GLUCOSE NEEDED FOR SIGNS AND SYMPTOMS OF HYPO AND HYPERGLYCEMIA. RN/SALES TEAM MANAGER/TYPESETTER APPRENTICE TO MONITOR ADHERENCE OF PATIENT/CAREGIVER PERFORMING DIABETIC FOOT CARE AND MAY PERFORM DIABETIC FOOT CARE PRN. RN/SALES TEAM MANAGER/TYPESETTER APPRENTICE TO MONITOR FOR ADHERENCE TO DIABETIC SELF-CARE AND MANAGEMENT INCLUDING MEDICATIONS.] Future Scheduled Test HYPOTENSIO N MANAGEMENT; RN TO ASSESS AND TEACH/ TYPESETTER APPRENTICE /SALES TEAM MANAGER TO OBSERVE AND TEACH WARNING SIGNS AND SYMPTOMS TO AVOID HOSPITALIZATION. [code = HYPOTENSION MANAGEMENT; RN TO ASSESS AND TEACH/ TYPESETTER APPRENTICE /SALES TEAM MANAGER TO OBSERVE AND TEACH WARNING SIGNS AND SYMPTOMS TO AVOID HOSPITALIZATION.] Future Scheduled Test ARRHYTHMIA MANAGEMENT; RN TO ASSESS AND TEACH, TYPESETTER APPRENTICE/SALES TEAM MANAGER TO OBSERVE AND TEACH WARNING SIGNS AND SYMPTOMS TO AVOID HOSPITALIZATION. [code = ARRHYTHMIA MANAGEMENT; RN TO ASSESS AND TEACH, TYPESETTER APPRENTICE/SALES TEAM MANAGER TO OBSERVE AND TEACH WARNING SIGNS AND SYMPTOMS TO AVOID HOSPITALIZATION.] Future Scheduled Test MEDICATION MANAGEMENT; RN/TYPESETTER APPRENTICE/SALES TEAM MANAGER TO REVIEW MEDICATIONS FOR INTERACTIONS, EFFECTIVENESS OF DRUG THERAPY, AND SIGNS/SYMPTOMS OF ADVERSE REACTIONS. MAY INSTRUCT AND REINFORCE MEDICATION TEACHING RELATED TO THE USE OF MEDICATIONS, DOSAGE, FREQUENCY, PURPOSE, SIDE EFFECTS, AND TO REPORT COMPLICATIONS. [code = MEDICATION MANAGEMENT; RN/TYPESETTER APPRENTICE/SALES TEAM MANAGER TO REVIEW MEDICATIONS FOR INTERACTIONS, EFFECTIVENESS [...] EVAL UATE, OBSERVE / ASSESS, AND MONITOR, PHYSICIAN UNDERWRITER TO OBSERVE AND MONITOR, PROVIDE SKILLED THERAPEUTIC INTERVENTION, ACTIVITY, EDUCATION, AND TRAINING TO ADDRESS GEN. WEAKNESS, POOR OVERALL ACTIVITY TOLERANCE, AND FUNCTIONAL LIMITATIONS IMPACTING SAFETY AND INDEPENDENCE. BED MOBILITY (PT/PHYSICIAN UNDERWRITER) PT/PHYSICIAN UNDERWRITER TO PROVIDE GAIT TRAINING FOR IMPROVED MOBILITY AND /OR TO NORMALIZE GAIT PATTERN THERAPEUTIC EXERCISES AND ESTABLISHING A HOME EXERCISE PROGRAM (PT/PHYSICIAN UNDERWRITER) PT/PHYSICIAN UNDERWRITER TO PROVIDE STAIR TRAINING PT / PHYSICIAN UNDERWRITER TO MONITOR AND EDUCATE ON OXYGEN SATURATION DURING ADLS/IADLS, NOTIFY PHYSICIAN AND/OR THE RN CLINICAL FROZEN FOODS MANAGER FOR PHYSICIAN NOTIFICATION AND IF O2 SATS BELOW PHYSICIAN ORDERED PARAMETERS AFTER 10 MIN OF REST PT / PHYSICIAN UNDERWRITER TO OBSERVE FOR EARLY SIGNS AND SYMPTOMS OF DEPRESSION OR DEPRESSION GETTING WORSE AND TO EDUCATE ON HOW TO FIND HELP. PT / PHYSICIAN UNDERWRITER MAY EDUCATE ON PAIN MANAGEMENT CLINICALLY INDICATED, INCLUDING NON-PHARMACOLOGICAL PAIN REDUCTION TECHNIQUES PT / PHYSICIAN UNDERWRITER TO MONITOR FOR HYPO/HYPERGLYCEMIA AND CONDUCT ROUTINE FOOT INSPECTIONS. RECORD PATIENT REPORTED BLOOD SUGAR LEVELS AND NOTIFY PHYSICIAN AND/OR THE RN CLINICAL FROZEN FOODS MANAGER FOR PHYSICIAN NOTIFICATION IF BLOOD SUGAR LEVELS ARE OUTSIDE ORDERED PARAMETERS. TEACH PATIENT/CAREGIVER ON DAILY FOOT INSPECTIONS PT / PHYSICIAN UNDERWRITER TO INSTRUCT PATIENT/CAREGIVER ON RISK FOR HOSPITALIZATION/EMERGENCY ROOM VISITS, TEACH SIGNS AND SYMPTOMS THAT PUT PATIENT AT RISK, WHEN TO NOTIFY NURSE/PHYSICIAN OF COMPLICATIONS/DECLINE, AND WHEN TO CALL 911. PT/PHYSICIAN UNDERWRITER TO EDUCATE ON ARTHRITIS SELF-MANAGEMENT PT / PHYSICIAN UNDERWRITER TO EDUCATE ON HEART FAILURE SELF-MANAGEMENT PT / PHYSICIAN UNDERWRITER TO EDUCATE ON HYPERTENSION SELF-MANAGEMENT PT TO ASSESS / PHYSICIAN UNDERWRITER TO MONITOR CARDIO/RESPIRATORY SYSTEM; AND NOTIFY THE PHYSICIAN AND/OR THE RN CLINICAL FROZEN FOODS MANAGER FOR PHYSICIAN NOTIFICATION FOR EARLY SIGNS AND SYMPTOMS OF EXACERBATION OR DETERIORATION. PT / PHYSICIAN UNDERWRITER TO EDUCATE ON ATRIAL FIBRILLATION SELF-MANAGEMENT. PT / PHYSICIAN UNDERWRITER TO EDUCATE ON PNEUMONIA / ASPIRATION PNEUMONIA SELF-MANAGEMENT. PT/PHYSICIAN UNDERWRITER TO IDENTIFY FALL RISK FACTORS; EDUCATE THE PATIENT/CAREGIVER ON WAYS TO REDUCE FALL RISK FACTORS AND ESTABLISH HOME EXERCISE PROGRAM TO MINIMIZE FALL RISK. MAY TEACH THE PATIENT FLOOR RECOVERY WHEN CLINICALLY APPROPRIATE [code = PT TO EVALUATE, OBSERVE / ASSESS, AND MONITOR, PHYSICIAN UNDERWRITER TO OBSERVE AND MONITOR, PROVIDE SKILLED THERAPEUTIC INTERVENTION, ACTIVITY, EDUCATION, AND TRAINING TO ADDRESS GEN. WEAKNESS, POOR OVERALL ACTIVITY TOLERANCE, AND FUNCTIONAL LIMITATIONS IMPACTING SAFETY AND INDEPENDENCE. BED MOBILITY (PT/PHYSICIAN UNDERWRITER) PT/PHYSICIAN UNDERWRITER TO PROVIDE GAIT TRAINING FOR IMPROVED MOBILITY AND /OR TO NORMALIZE GAIT PATTERN THERAPEUTIC EXERCISES AND ESTABLISHING A HOME EXERCISE PROGRAM (PT/PHYSICIAN UNDERWRITER) PT/PHYSICIAN UNDERWRITER TO PROVIDE STAIR TRAINING PT / PHYSICIAN UNDERWRITER TO MONITOR AND EDUCATE ON OXYGEN SATURATION DURING ADLS/IADLS, NOTIFY PHYSICIAN AND/OR THE RN CLINICAL FROZEN FOODS MANAGER FOR PHYSICIAN NOTIFICATION AND IF O2 SATS BELOW PHYSICIAN ORDERED PARAMETERS AFTER 10 MIN OF REST PT / PHYSICIAN UNDERWRITER TO OBSERVE FOR EARLY SIGNS AND SYMPTOMS OF DEPRESSION OR DEPRESSION GETTING WORSE AND TO EDUCATE ON HOW TO FIND HELP. PT / PHYSICIAN UNDERWRITER MAY EDUCATE ON PAIN MANAGEMENT CLINICALLY INDICATED, INCLUDING NON-PHARMACOLOGICAL PAIN REDUCTION TECHNIQUES PT / PHYSICIAN UNDERWRITER TO MONITOR FOR HYPO/HYPERGLYCEMIA AND CONDUCT ROUTINE FOOT INSPECTIONS. RECORD PATIENT REPORTED BLOOD SUGAR LEVELS AND NOTIFY PHYSICIAN AND/OR THE RN CLINICAL FROZEN FOODS MANAGER FOR PHYSICIAN NOTIFICATION IF BLOOD SUGAR LEVELS ARE OUTSIDE ORDERED PARAMETERS. TEACH PATIENT/CAREGIVER ON DAILY FOOT INSPECTIONS PT / PHYSICIAN UNDERWRITER TO INSTRUCT PATIENT/CAREGIVER ON RISK FOR HOSPITALIZATION/EMERGENCY ROOM VISITS, TEACH SIGNS AND SYMPTOMS THAT PUT PATIENT AT RISK, WHEN TO NOTIFY NURSE/PHYSICIAN OF COMPLICATIONS/DECLINE, AND WHEN TO CALL 911. PT/PHYSICIAN UNDERWRITER TO EDUCATE ON ARTHRITIS SELF-MANAGEMENT PT / PHYSICIAN UNDERWRITER TO EDUCATE ON HEART FAILURE SELF-MANAGEMENT PT / PHYSICIAN UNDERWRITER TO EDUCATE ON HYPERTENSION SELF-MANAGEMENT PT TO ASSESS / PHYSICIAN UNDERWRITER TO MONITOR CARDIO/RESPIRATORY SYSTEM; AND NOTIFY THE PHYSICIAN AND/OR THE RN CLINICAL FROZEN FOODS MANAGER FOR PHYSICIAN NOTIFICATION FOR EARLY SIGNS AND SYMPTOMS OF EXACERBATION OR DETERIORATION. PT / PHYSICIAN UNDERWRITER TO EDUCATE ON ATRIAL FIBRILLATION SELF-MANAGEMENT. PT / PHYSICIAN UNDERWRITER TO EDUCATE ON PNEUMONIA / ASPIRATION PNEUMONIA SELF-MANAGEMENT. PT/PHYSICIAN UNDERWRITER TO IDENTIFY FALL RISK FACTORS; EDUCATE THE PATIENT/CAREGIVER ON WAYS TO REDUCE FALL RISK FACTORS AND ESTABLISH HOME EXERCISE PROGRAM TO MINIMIZE FALL RISK. MAY TEACH THE PATIENT FLOOR RECOVERY WHEN CLINICALLY APPROPRIATE] Future Scheduled Test AGENCY MAY PERFORM A RESUMPTION OF CARE VISIT FOLLOWING ANY HOSPITAL ADMISSION. OT TO EVALUATE, OBSERVE / ASSESS, AND MONITOR, HEALTH SCIENCE INSTRUCTOR TO OBSERVE AND MONITOR, PROVIDE SKILLED THERAPEUTIC INTERVENTION, ACTIVITY, EDUCATION, AND TRAINING TO ADDRESS SAFETY AND INDEPENDENCE OF ADLS AND FUNCTIONAL TRANSFERS IN HOME ENVIRONMENT. ACTIVITIES OF DAILY LIVING (OT/MARIANNE) THERAPEUTIC EXERCISE (OT/HEALTH SCIENCE INSTRUCTOR) ENERGY CONSERVATION/ACTIVITY DEMAND (OT/HEALTH SCIENCE INSTRUCTOR) OT/HEALTH SCIENCE INSTRUCTOR TO MONITOR AND EDUCATE ON OXYGEN SATURATION DURING ADLS/IADLS, NOTIFY PHYSICIAN AND/OR THE RN CLINICAL FROZEN FOODS MANAGER FOR PHYSICIAN NOTIFICATION AND IF O2 SATS BELOW 90% AFTER 10 MIN OF REST. OT / HEALTH SCIENCE INSTRUCTOR TO IDENTIFY FALL RISK FACTORS; EDUCATE THE PATIENT/CAREGIVER ON WAYS TO REDUCE FALL RISK FACTORS AND ESTABLISH HOME EXERCISE PROGRAM TO MINIMIZE FALL RISK. MAY TEACH THE PATIENT FLOOR RECOVERY WHEN CLINICALLY APPROPRIATE. OT/HEALTH SCIENCE INSTRUCTOR TO EDUCATE ON HYPERTENSION SELF-MANAGEMENT OT/MARIANNE TO EDUCATE ON ATRIAL FIBRILLATION SELF-MANAGEMENT. [code = AGENCY MAY PERFORM A RESUMPTION OF CARE VISIT FOLLOWING ANY HOSPITAL ADMISSION. OT TO EVALUATE, OBSERVE / ASSESS, AND MONITOR, HEALTH SCIENCE INSTRUCTOR TO OBSERVE AND MONITOR, PROVIDE SKILLED THERAPEUTIC INTERVENTION, ACTIVITY, EDUCATION, AND TRAINING TO ADDRESS SAFETY AND INDEPENDENCE OF ADLS AND FUNCTIONAL TRANSFERS IN HOME ENVIRONMENT. ACTIVITIES OF DAILY LIVING (OT/MARIANNE) THERAPEUTIC EXERCISE (OT/HEALTH SCIENCE INSTRUCTOR) ENERGY CONSERVATION/ACTIVITY DEMAND (OT/MARIANNE) OT/HEALTH SCIENCE INSTRUCTOR TO MONITOR AND EDUCATE ON OXYGEN SATURATION DURING ADLS/IADLS, NOTIFY PHYSICIAN AND/OR THE RN CLINICAL FROZEN FOODS MANAGER FOR PHYSICIAN NOTIFICATION AND IF O2 SATS BELOW 90% AFTER 10 MIN OF REST. OT / MARIANNE TO IDENTIFY FALL RISK FACTORS; EDUCATE THE PATIENT/CAREGIVER ON WAYS TO REDUCE FALL RISK FACTORS AND ESTABLISH HOME EXERCISE PROGRAM TO MINIMIZE FALL RISK. MAY TEACH THE PATIENT FLOOR RECOVERY WHEN CLINICALLY APPROPRIATE. OT/HEALTH SCIENCE INSTRUCTOR TO EDUCATE ON HYPERTENSION SELF-MANAGEMENT OT/MARIANNE TO [...] OF SKIN INTEGRITY ISSUES FROM SBA TO CA WITHIN 2 WKS. PT STG: PATIENT WILL [...] TO SAFELY NEGOTIATE STAIRS FROM SBA TO CA WITH 2 STEPS W/O HANDRAIL VIA FRONT [...] End Date/Time Encounter Type Admission Type Attending [facility] Care Department Encounter ID Discharge Date Discharge Status Discharge Condition Discharge Reason Percent Goals Met 2025-02-07 00:00:00 2025-04-07 00:00:00 Outpatient NEW ADMISSION [facility] [id number]
--- OUTSIDE RECORDS SUMMARY | 2025-04-06 18:00 | XMS_ITS | Clinical Summary ---
Author Organization Unknown Care Team Providers Care [employer] Mechanic Name Role Phone DIGNA ARIEL, ESTRELLA Unavailable Unava dinora STOKES RN, FRANKIE Unavailable Unavailabl e KARI PT, DIDI Unavailable Unavailable NAT SYSTEMS QA ANALYST, GAUDENCIO Unavailable Unavailabl e RADHA OT, ROLANDO Unavailable Unavailable JOANNE STEVEN, HATTIE Unavailable Unavailable Payers Payer Name Policy Type Policy Number Effective Date Expira tion Date MEDICARE.[facility] [id number] Problems Condition Name Condition Details Condition Category Status Onset Date Resolution Date Last Treatment Date Treating Clinician Comments 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 02-07 [...] OF PNEUMONIA (RECURRENT) Active 02-07 00:00: 00 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 Active 02-07 [...] 80 mg tablet 02-07 00:00: 00 Yes [id number] CHOLESTEROL 1 tablet DAILY 1 tablet DAILY (route: oral) Med Classific ation: Cardiovas cular Therapy Agents digoxin 125 mcg (0.125 mg) tablet 02-07 00:00: 00 02-21 23:59 :00 No [id number] HEART RHYTHM 1 tablet DAILY 1 tablet DAILY (route: oral) Med Classific ation: Cardiovas cular Therapy Agents escitalopra m 10 mg tablet 02-07 00:00: 00 Yes [id number] MOOD 1 tablet DAILY 1 tablet DAILY (route: oral) Med Classific ation: Central Nervous System Agents ezetimibe 10 mg tablet 02-07 00:00: 00 Yes [id number] CHOLESTEROL 1 tablet DAILY 1 tablet DAILY (route: oral) Med Classific ation: Cardiovas cular Therapy Agents metoprolol succinate ER 25 mg tablet,exte nded release 24 hr 02-07 00:00: 00 02-21 23:59 :00 No [id number] BLOOD PRESSURE 0.5 tablet DAILY 0.5 tablet DAILY (route: oral) Med Classific ation: Cardiovas cular Therapy Agents pantoprazol e 40 mg tablet,joão yed release 02-07 00:00: 00 02-21 23:59 :00 No [id number] STOMACH ACID 1 tablet DAILY 1 tablet DAILY (route: oral) Med Classific ation: Gastroint estinal Therapy Agents prednisone 5 mg tablet 02-07 00:00: 00 Yes [id number] ADRENAL INSUFFICIEN CY 1 tablet DAILY 1 tablet DAILY (route: oral) Med Classific ation: Endocrine spironolact one 25 mg tablet 02-07 00:00: 00 Yes [id number] FLUID RETENTION 0.5 tablet DAILY 0.5 tablet DAILY (route: oral) Med Classific ation: Cardiovas cular Therapy Agents tamsulosin 0.4 mg capsule 02-07 00:00: 00 02-21 23:59 :00 No [id number] URINARY HEALTH 1 capsule DAILY 1 capsule DAILY (route: oral) Med Classific ation: Genitouri nary Therapy acetaminoph en 325 mg tablet 2024-05 00:00: 00 Yes [id number] PAIN 2 tablet 2 TIMES DAILY 2 tablet 2 TIMES DAILY (route: oral) Med Classific ation: Analgesic , Anti-infl ammatory or Antipyret ic aspirin 81 mg tablet 2024-05 00:00: 00 Yes [id number] ANTICOAGULA NT 1 tablet DAILY 1 tablet DAILY (route: oral) Med Classific ation: Hematolog ical Agents ipratropium 0.5 mg-albutero l 3 mg (2.5 mg base)/3 mL nebulizatio n soln 2024-05 00:00: 00 Yes [id number] COPD 3 mL EVERY 6 HOURS 3 mL EVERY 6 HOURS (route: inhalation ) Med Classific ation: Respirato ry Therapy Agents Lanoxin 62.5 mcg (0.0625 mg) tablet 2024-05 00:00: 00 Yes [id number] CHF 1 tablet DAILY 1 tablet DAILY (route: oral) Med Classific ation: Cardiovas cular Therapy Agents Lasix 20 mg tablet 2024-05 00:00: 00 Yes [id number] CHF 1 tablet DAILY 1 tablet DAILY (route: oral) Med Classific ation: Cardiovas cular Therapy Agents Toprol XL 25 mg tablet,exte nded release 2024-05 00:00: 00 Yes [id number] BP 25 mg DAILY 25 mg DAILY [...] SYSTEM MANAGEMENT; RN TO ASSESS AND TEACH, CALENDER FEEDER/SUPERVISOR POLE YARD TO OBSERVE AND TEACH RELATED TO ALTERED RESPIRATORY STATUS TO MINIMIZE COMPLICATIONS AND REDUCE HOSPITALIZATION. [code = SN 1WK9 PT 1WK1 OT EFFECTIVE 02/10/2025K1 RESPIRATORY SYSTEM MANAGEMENT; RN TO ASSESS AND TEACH, CALENDER FEEDER/SUPERVISOR POLE YARD TO OBSERVE AND TEACH RELATED TO ALTERED RESPIRATORY STATUS TO MINIMIZE COMPLICATIONS AND REDUCE HOSPITALIZATION.] Future Scheduled Test TRACHEOSTO MY CARE MANAGEMENT; RN/CALENDER FEEDER/SUPERVISOR POLE YARD TO INSTRUCT PATIENT/CAREGIVER ON CARE AND MANAGEMENT OF TRACHEOSTOMY. RN/ CALENDER FEEDER/SUPERVISOR POLE YARD TO PROVIDE SKILLED TEACHING ON TRACH COLLAR SUCTIONING PRN WITH 14 FR SUCTION CATHETER PER PATIENT TRACH CARE WITH INNER CANNULA: REMOVE INNER CANNULA, CLEANSE WITH NORMAL SALINE AND OR STERILE WATER AND REINSERT NON-DISPOSABLE CANNULA SIZE OF INNER CANNULA 5 BROOKS [code = TRACHEOSTOMY CARE MANAGEMENT; RN/CALENDER FEEDER/SUPERVISOR POLE YARD TO INSTRUCT PATIENT/CAREGIVER ON CARE AND MANAGEMENT OF TRACHEOSTOMY. RN/ CALENDER FEEDER/SUPERVISOR POLE YARD TO PROVIDE SKILLED TEACHING ON TRACH COLLAR SUCTIONING PRN WITH 14 FR SUCTION CATHETER PER PATIENT TRACH CARE WITH INNER CANNULA: REMOVE INNER CANNULA, CLEANSE WITH NORMAL SALINE AND OR STERILE WATER AND REINSERT NON-DISPOSABLE CANNULA SIZE OF INNER CANNULA 5 BROOKS] Future Scheduled Test FALL REDUC TION MANAGEMENT; RN TO ASSESS AND OBSERVE, CALENDER FEEDER/SUPERVISOR POLE YARD TO OBSERVE FALL RISK FACTORS AND EDUCATE PATIENT/CAREGIVER ON STRATEGIES TO MINIMIZE THE RISK OF FALLING. [code = FALL REDUCTION MANAGEMENT; RN TO ASSESS AND OBSERVE, CALENDER FEEDER/SUPERVISOR POLE YARD TO OBSERVE FALL RISK FACTORS AND EDUCATE PATIENT/CAREGIVER ON STRATEGIES TO MINIMIZE THE RISK OF FALLING.] Future Scheduled Test ANEMIA MAN AGEMENT; RN TO ASSESS AND TEACH, SUPERVISOR POLE YARD/CALENDER FEEDER TO OBSERVE AND TEACH AND PROVIDE EDUCATION ON ANEMIA. [code = ANEMIA MANAGEMENT; RN TO ASSESS AND TEACH, SUPERVISOR POLE YARD/CALENDER FEEDER TO OBSERVE AND TEACH AND PROVIDE EDUCATION ON ANEMIA.] Future Scheduled Test RN TO OBSE RVE, ASSESS, EVALUATE, AND DEVELOP AN INDIVIDUALIZED PLAN OF CARE. AGENCY MAY ACCEPT ORDERS FROM CONSULTING PHYSICIANS RN TO OBSERVE AND ASSESS, CALENDER FEEDER/SUPERVISOR POLE YARD TO OBSERVE FOR RISK FOR FALLS AND INSTRUCT IN FALL PREVENTION, HOME SAFETY, MEDICATION MANAGEMENT, INFECTION PREVENTION, AND NUTRITION MANAGEMENT. RN/CALENDER FEEDER/SUPERVISOR POLE YARD NURSE MAY PERFORM O2 SATURATION LEVEL ON ADMISSION AND PRN FOR RN TO ASSESS/CALENDER FEEDER TO OBSERVE PATIENT, WITH NOTIFICATION TO THE PHYSICIAN IF SATURATION IS 90% IN THE ABSENCE OF MORE SPECIFIC PARAMETERS FROM THE PHYSICIAN. AGENCY MAY PERFORM A RESUMPTION OF CARE VISIT FOLLOWING ANY HOSPITAL ADMISSION. RN/CALENDER FEEDER/SUPERVISOR POLE YARD TO MONITOR CO-MORBID CONDITIONS LISTED ON THE PLAN OF CARE AND ANY NEW CONDITIONS THAT PRESENT THEMSELVES DURING THIS EPISODE TO IDENTIFY CHANGES AND INTERVENE TO MINIMIZE COMPLICATIONS. [code = RN TO OBSERVE, ASSESS, EVALUATE, AND DEVELOP AN INDIVIDUALIZED PLAN OF CARE. AGENCY MAY ACCEPT ORDERS FROM CONSULTING PHYSICIANS RN TO OBSERVE AND ASSESS, CALENDER FEEDER/SUPERVISOR POLE YARD TO OBSERVE FOR RISK FOR FALLS AND INSTRUCT IN FALL PREVENTION, HOME SAFETY, MEDICATION MANAGEMENT, INFECTION PREVENTION, AND NUTRITION MANAGEMENT. RN/CALENDER FEEDER/SUPERVISOR POLE YARD NURSE MAY PERFORM O2 SATURATION LEVEL ON ADMISSION AND PRN FOR RN TO ASSESS/CALENDER FEEDER TO OBSERVE PATIENT, WITH NOTIFICATION TO THE PHYSICIAN IF SATURATION IS 90% IN THE ABSENCE OF MORE SPECIFIC PARAMETERS FROM THE PHYSICIAN. AGENCY MAY PERFORM A RESUMPTION OF CARE VISIT FOLLOWING ANY HOSPITAL ADMISSION. RN/CALENDER FEEDER/SUPERVISOR POLE YARD TO MONITOR CO-MORBID CONDITIONS LISTED ON THE PLAN OF CARE AND ANY NEW CONDITIONS THAT PRESENT THEMSELVES DURING THIS EPISODE TO IDENTIFY CHANGES AND INTERVENE TO MINIMIZE COMPLICATIONS.] Future Scheduled Test PAIN MANAG EMENT; RN TO ASSESS AND TEACH, SUPERVISOR POLE YARD/CALENDER FEEDER TO OBSERVE AND TEACH AND PROVIDE EDUCATION ON PAIN MANAGEMENT TECHNIQUES. [code = PAIN MANAGEMENT; RN TO ASSESS AND TEACH, SUPERVISOR POLE YARD/CALENDER FEEDER TO OBSERVE AND TEACH AND PROVIDE EDUCATION ON PAIN MANAGEMENT TECHNIQUES.] Future Scheduled Test RISK FOR H OSPITALIZATION; RN TO ASSESS/TEACH, SUPERVISOR POLE YARD/CALENDER FEEDER TO OBSERVE/TEACH PATIENT/CAREGIVER ON RISK FOR HOSPITALIZATION/EMERGENCY ROOM VISITS, TEACH SIGNS AND SYMPTOMS THAT PUT PATIENT AT RISK, WHEN TO NOTIFY NURSE/PHYSICIAN OF COMPLICATIONS/DECLINE, AND WHEN TO CALL 911. [code = RISK FOR HOSPITALIZATION; RN TO ASSESS/TEACH, SUPERVISOR POLE YARD/CALENDER FEEDER TO OBSERVE/TEACH PATIENT/CAREGIVER ON RISK FOR HOSPITALIZATION/EMERGENCY ROOM VISITS, TEACH SIGNS AND SYMPTOMS THAT PUT PATIENT AT RISK, WHEN TO NOTIFY NURSE/PHYSICIAN OF COMPLICATIONS/DECLINE, AND WHEN TO CALL 911.] Future Scheduled Test CARDIOVASC ULAR SYSTEM; RN TO ASSESS/TEACH, CALENDER FEEDER/SUPERVISOR POLE YARD TO OBSERVE/TEACH RELATED TO ALTERED CARDIOVASCULAR STATUS TO MINIMIZE COMPLICATIONS AND REDUCE HOSPITALIZATION. [code = CARDIOVASCULAR SYSTEM; RN TO ASSESS/TEACH, CALENDER FEEDER/SUPERVISOR POLE YARD TO OBSERVE/TEACH RELATED TO ALTERED CARDIOVASCULAR STATUS TO MINIMIZE COMPLICATIONS AND REDUCE HOSPITALIZATION.] Future Scheduled Test HYPERTENSI ON MANAGEMENT; RN TO ASSESS AND TEACH, CALENDER FEEDER/SUPERVISOR POLE YARD TO OBSERVE AND TEACH WARNING SIGNS AND SYMPTOMS TO AVOID HOSPITALIZATION. [code = HYPERTENSION MANAGEMENT; RN TO ASSESS AND TEACH, CALENDER FEEDER/SUPERVISOR POLE YARD TO OBSERVE AND TEACH WARNING SIGNS AND SYMPTOMS TO AVOID HOSPITALIZATION.] Future Scheduled Test HEART FAIL URE MONITORING RN/SUPERVISOR POLE YARD/CALENDER FEEDER TO MONITOR PATIENT FOR SIGNS AND SYMPTOMS OF HEART FAILURE EXACERBATION, MONITOR FOR ADHERENCE WITH MEDICATION AND HEART FAILURE MANAGEMENT REGIMEN. [code = HEART FAILURE MONITORING RN/SUPERVISOR POLE YARD/CALENDER FEEDER TO MONITOR PATIENT FOR SIGNS AND SYMPTOMS OF HEART FAILURE EXACERBATION, MONITOR FOR ADHERENCE WITH MEDICATION AND HEART FAILURE MANAGEMENT REGIMEN.] Future Scheduled Test DIABETES M ONITORING RN/SUPERVISOR POLE YARD/CALENDER FEEDER TO MONITOR BLOOD SUGAR LOG FOR BLOOD SUGAR READINGS THAT ARE BEING CHECKED BY PATIENT, CAREGIVER NEEDED FOR SIGNS AND SYMPTOMS OF HYPER/HYPOGLYCEMIA. PATIENT THERAPEUTIC BLOOD SUGAR PARAMETERS ARE 70 - 300. REPORT BLOOD SUGARS OUT OF RANGE TO PHYSICIAN. NURSE MAY PERFORM FINGER STICK BLOOD GLUCOSE NEEDED FOR SIGNS AND SYMPTOMS OF HYPO AND HYPERGLYCEMIA. RN/SUPERVISOR POLE YARD/CALENDER FEEDER TO MONITOR ADHERENCE OF PATIENT/CAREGIVER PERFORMING DIABETIC FOOT CARE AND MAY PERFORM DIABETIC FOOT CARE PRN. RN/SUPERVISOR POLE YARD/CALENDER FEEDER TO MONITOR FOR ADHERENCE TO DIABETIC SELF-CARE AND MANAGEMENT INCLUDING MEDICATIONS. [code = DIABETES MONITORING RN/SUPERVISOR POLE YARD/CALENDER FEEDER TO MONITOR BLOOD SUGAR LOG FOR BLOOD SUGAR READINGS THAT ARE BEING CHECKED BY PATIENT, CAREGIVER NEEDED FOR SIGNS AND SYMPTOMS OF HYPER/HYPOGLYCEMIA. PATIENT THERAPEUTIC BLOOD SUGAR PARAMETERS ARE 70 - 300. REPORT BLOOD SUGARS OUT OF RANGE TO PHYSICIAN. NURSE MAY PERFORM FINGER STICK BLOOD GLUCOSE NEEDED FOR SIGNS AND SYMPTOMS OF HYPO AND HYPERGLYCEMIA. RN/SUPERVISOR POLE YARD/CALENDER FEEDER TO MONITOR ADHERENCE OF PATIENT/CAREGIVER PERFORMING DIABETIC FOOT CARE AND MAY PERFORM DIABETIC FOOT CARE PRN. RN/SUPERVISOR POLE YARD/CALENDER FEEDER TO MONITOR FOR ADHERENCE TO DIABETIC SELF-CARE AND MANAGEMENT INCLUDING MEDICATIONS.] Future Scheduled Test HYPOTENSIO N MANAGEMENT; RN TO ASSESS AND TEACH/ CALENDER FEEDER /SUPERVISOR POLE YARD TO OBSERVE AND TEACH WARNING SIGNS AND SYMPTOMS TO AVOID HOSPITALIZATION. [code = HYPOTENSION MANAGEMENT; RN TO ASSESS AND TEACH/ CALENDER FEEDER /SUPERVISOR POLE YARD TO OBSERVE AND TEACH WARNING SIGNS AND SYMPTOMS TO AVOID HOSPITALIZATION.] Future Scheduled Test ARRHYTHMIA MANAGEMENT; RN TO ASSESS AND TEACH, CALENDER FEEDER/SUPERVISOR POLE YARD TO OBSERVE AND TEACH WARNING SIGNS AND SYMPTOMS TO AVOID HOSPITALIZATION. [code = ARRHYTHMIA MANAGEMENT; RN TO ASSESS AND TEACH, CALENDER FEEDER/SUPERVISOR POLE YARD TO OBSERVE AND TEACH WARNING SIGNS AND SYMPTOMS TO AVOID HOSPITALIZATION.] Future Scheduled Test MEDICATION MANAGEMENT; RN/CALENDER FEEDER/SUPERVISOR POLE YARD TO REVIEW MEDICATIONS FOR INTERACTIONS, EFFECTIVENESS OF DRUG THERAPY, AND SIGNS/SYMPTOMS OF ADVERSE REACTIONS. MAY INSTRUCT AND REINFORCE MEDICATION TEACHING RELATED TO THE USE OF MEDICATIONS, DOSAGE, FREQUENCY, PURPOSE, SIDE EFFECTS, AND TO REPORT COMPLICATIONS. [code = MEDICATION MANAGEMENT; RN/CALENDER FEEDER/SUPERVISOR POLE YARD TO REVIEW MEDICATIONS FOR INTERACTIONS, EFFECTIVENESS OF [...] EVAL UATE, OBSERVE / ASSESS, AND MONITOR, SYSTEMS QA ANALYST TO OBSERVE AND MONITOR, PROVIDE SKILLED THERAPEUTIC INTERVENTION, ACTIVITY, EDUCATION, AND TRAINING TO ADDRESS GEN. WEAKNESS, POOR OVERALL ACTIVITY TOLERANCE, AND FUNCTIONAL LIMITATIONS IMPACTING SAFETY AND INDEPENDENCE. BED MOBILITY (PT/SYSTEMS QA ANALYST) PT/SYSTEMS QA ANALYST TO PROVIDE GAIT TRAINING FOR IMPROVED MOBILITY AND /OR TO NORMALIZE GAIT PATTERN THERAPEUTIC EXERCISES AND ESTABLISHING A HOME EXERCISE PROGRAM (PT/SYSTEMS QA ANALYST) PT/SYSTEMS QA ANALYST TO PROVIDE STAIR TRAINING PT / SYSTEMS QA ANALYST TO MONITOR AND EDUCATE ON OXYGEN SATURATION DURING ADLS/IADLS, NOTIFY PHYSICIAN AND/OR THE RN CLINICAL TRANSITIONAL STUDIES INSTRUCTOR FOR PHYSICIAN NOTIFICATION AND IF O2 SATS BELOW PHYSICIAN ORDERED PARAMETERS AFTER 10 MIN OF REST PT / SYSTEMS QA ANALYST TO OBSERVE FOR EARLY SIGNS AND SYMPTOMS OF DEPRESSION OR DEPRESSION GETTING WORSE AND TO EDUCATE ON HOW TO FIND HELP. PT / SYSTEMS QA ANALYST MAY EDUCATE ON PAIN MANAGEMENT CLINICALLY INDICATED, INCLUDING NON-PHARMACOLOGICAL PAIN REDUCTION TECHNIQUES PT / SYSTEMS QA ANALYST TO MONITOR FOR HYPO/HYPERGLYCEMIA AND CONDUCT ROUTINE FOOT INSPECTIONS. RECORD PATIENT REPORTED BLOOD SUGAR LEVELS AND NOTIFY PHYSICIAN AND/OR THE RN CLINICAL TRANSITIONAL STUDIES INSTRUCTOR FOR PHYSICIAN NOTIFICATION IF BLOOD SUGAR LEVELS ARE OUTSIDE ORDERED PARAMETERS. TEACH PATIENT/CAREGIVER ON DAILY FOOT INSPECTIONS PT / SYSTEMS QA ANALYST TO INSTRUCT PATIENT/CAREGIVER ON RISK FOR HOSPITALIZATION/EMERGENCY ROOM VISITS, TEACH SIGNS AND SYMPTOMS THAT PUT PATIENT AT RISK, WHEN TO NOTIFY NURSE/PHYSICIAN OF COMPLICATIONS/DECLINE, AND WHEN TO CALL 911. PT/SYSTEMS QA ANALYST TO EDUCATE ON ARTHRITIS SELF-MANAGEMENT PT / SYSTEMS QA ANALYST TO EDUCATE ON HEART FAILURE SELF-MANAGEMENT PT / SYSTEMS QA ANALYST TO EDUCATE ON HYPERTENSION SELF-MANAGEMENT PT TO ASSESS / SYSTEMS QA ANALYST TO MONITOR CARDIO/RESPIRATORY SYSTEM; AND NOTIFY THE PHYSICIAN AND/OR THE RN CLINICAL TRANSITIONAL STUDIES INSTRUCTOR FOR PHYSICIAN NOTIFICATION FOR EARLY SIGNS AND SYMPTOMS OF EXACERBATION OR DETERIORATION. PT / SYSTEMS QA ANALYST TO EDUCATE ON ATRIAL FIBRILLATION SELF-MANAGEMENT. PT / SYSTEMS QA ANALYST TO EDUCATE ON PNEUMONIA / ASPIRATION PNEUMONIA SELF-MANAGEMENT. PT/SYSTEMS QA ANALYST TO IDENTIFY FALL RISK FACTORS; EDUCATE THE PATIENT/CAREGIVER ON WAYS TO REDUCE FALL RISK FACTORS AND ESTABLISH HOME EXERCISE PROGRAM TO MINIMIZE FALL RISK. MAY TEACH THE PATIENT FLOOR RECOVERY WHEN CLINICALLY APPROPRIATE [code = PT TO EVALUATE, OBSERVE / ASSESS, AND MONITOR, SYSTEMS QA ANALYST TO OBSERVE AND MONITOR, PROVIDE SKILLED THERAPEUTIC INTERVENTION, ACTIVITY, EDUCATION, AND TRAINING TO ADDRESS GEN. WEAKNESS, POOR OVERALL ACTIVITY TOLERANCE, AND FUNCTIONAL LIMITATIONS IMPACTING SAFETY AND INDEPENDENCE. BED MOBILITY (PT/SYSTEMS QA ANALYST) PT/SYSTEMS QA ANALYST TO PROVIDE GAIT TRAINING FOR IMPROVED MOBILITY AND /OR TO NORMALIZE GAIT PATTERN THERAPEUTIC EXERCISES AND ESTABLISHING A HOME EXERCISE PROGRAM (PT/SYSTEMS QA ANALYST) PT/SYSTEMS QA ANALYST TO PROVIDE STAIR TRAINING PT / SYSTEMS QA ANALYST TO MONITOR AND EDUCATE ON OXYGEN SATURATION DURING ADLS/IADLS, NOTIFY PHYSICIAN AND/OR THE RN CLINICAL TRANSITIONAL STUDIES INSTRUCTOR FOR PHYSICIAN NOTIFICATION AND IF O2 SATS BELOW PHYSICIAN ORDERED PARAMETERS AFTER 10 MIN OF REST PT / SYSTEMS QA ANALYST TO OBSERVE FOR EARLY SIGNS AND SYMPTOMS OF DEPRESSION OR DEPRESSION GETTING WORSE AND TO EDUCATE ON HOW TO FIND HELP. PT / SYSTEMS QA ANALYST MAY EDUCATE ON PAIN MANAGEMENT CLINICALLY INDICATED, INCLUDING NON-PHARMACOLOGICAL PAIN REDUCTION TECHNIQUES PT / SYSTEMS QA ANALYST TO MONITOR FOR HYPO/HYPERGLYCEMIA AND CONDUCT ROUTINE FOOT INSPECTIONS. RECORD PATIENT REPORTED BLOOD SUGAR LEVELS AND NOTIFY PHYSICIAN AND/OR THE RN CLINICAL TRANSITIONAL STUDIES INSTRUCTOR FOR PHYSICIAN NOTIFICATION IF BLOOD SUGAR LEVELS ARE OUTSIDE ORDERED PARAMETERS. TEACH PATIENT/CAREGIVER ON DAILY FOOT INSPECTIONS PT / SYSTEMS QA ANALYST TO INSTRUCT PATIENT/CAREGIVER ON RISK FOR HOSPITALIZATION/EMERGENCY ROOM VISITS, TEACH SIGNS AND SYMPTOMS THAT PUT PATIENT AT RISK, WHEN TO NOTIFY NURSE/PHYSICIAN OF COMPLICATIONS/DECLINE, AND WHEN TO CALL 911. PT/SYSTEMS QA ANALYST TO EDUCATE ON ARTHRITIS SELF-MANAGEMENT PT / SYSTEMS QA ANALYST TO EDUCATE ON HEART FAILURE SELF-MANAGEMENT PT / SYSTEMS QA ANALYST TO EDUCATE ON HYPERTENSION SELF-MANAGEMENT PT TO ASSESS / SYSTEMS QA ANALYST TO MONITOR CARDIO/RESPIRATORY SYSTEM; AND NOTIFY THE PHYSICIAN AND/OR THE RN CLINICAL TRANSITIONAL STUDIES INSTRUCTOR FOR PHYSICIAN NOTIFICATION FOR EARLY SIGNS AND SYMPTOMS OF EXACERBATION OR DETERIORATION. PT / SYSTEMS QA ANALYST TO EDUCATE ON ATRIAL FIBRILLATION SELF-MANAGEMENT. PT / SYSTEMS QA ANALYST TO EDUCATE ON PNEUMONIA / ASPIRATION PNEUMONIA SELF-MANAGEMENT. PT/SYSTEMS QA ANALYST TO IDENTIFY FALL RISK FACTORS; EDUCATE THE PATIENT/CAREGIVER ON WAYS TO REDUCE FALL RISK FACTORS AND ESTABLISH HOME EXERCISE PROGRAM TO MINIMIZE FALL RISK. MAY TEACH THE PATIENT FLOOR RECOVERY WHEN CLINICALLY APPROPRIATE] Future Scheduled Test AGENCY MAY PERFORM A RESUMPTION OF CARE VISIT FOLLOWING ANY HOSPITAL ADMISSION. OT TO EVALUATE, OBSERVE / ASSESS, AND MONITOR, COMPENSATION CONSULTING MANAGER TO OBSERVE AND MONITOR, PROVIDE SKILLED THERAPEUTIC INTERVENTION, ACTIVITY, EDUCATION, AND TRAINING TO ADDRESS SAFETY AND INDEPENDENCE OF ADLS AND FUNCTIONAL TRANSFERS IN HOME ENVIRONMENT. ACTIVITIES OF DAILY LIVING (OT/MARIANNE) THERAPEUTIC EXERCISE (OT/COMPENSATION CONSULTING MANAGER) ENERGY CONSERVATION/ACTIVITY DEMAND (OT/COMPENSATION CONSULTING MANAGER) OT/COMPENSATION CONSULTING MANAGER TO MONITOR AND EDUCATE ON OXYGEN SATURATION DURING ADLS/IADLS, NOTIFY PHYSICIAN AND/OR THE RN CLINICAL TRANSITIONAL STUDIES INSTRUCTOR FOR PHYSICIAN NOTIFICATION AND IF O2 SATS BELOW 90% AFTER 10 MIN OF REST. OT / COMPENSATION CONSULTING MANAGER TO IDENTIFY FALL RISK FACTORS; EDUCATE THE PATIENT/CAREGIVER ON WAYS TO REDUCE FALL RISK FACTORS AND ESTABLISH HOME EXERCISE PROGRAM TO MINIMIZE FALL RISK. MAY TEACH THE PATIENT FLOOR RECOVERY WHEN CLINICALLY APPROPRIATE. OT/COMPENSATION CONSULTING MANAGER TO EDUCATE ON HYPERTENSION SELF-MANAGEMENT OT/MARIANNE TO EDUCATE ON ATRIAL FIBRILLATION SELF-MANAGEMENT. [code = AGENCY MAY PERFORM A RESUMPTION OF CARE VISIT FOLLOWING ANY HOSPITAL ADMISSION. OT TO EVALUATE, OBSERVE / ASSESS, AND MONITOR, COMPENSATION CONSULTING MANAGER TO OBSERVE AND MONITOR, PROVIDE SKILLED THERAPEUTIC INTERVENTION, ACTIVITY, EDUCATION, AND TRAINING TO ADDRESS SAFETY AND INDEPENDENCE OF ADLS AND FUNCTIONAL TRANSFERS IN HOME ENVIRONMENT. ACTIVITIES OF DAILY LIVING (OT/MARIANNE) THERAPEUTIC EXERCISE (OT/COMPENSATION CONSULTING MANAGER) ENERGY CONSERVATION/ACTIVITY DEMAND (OT/MARIANNE) OT/COMPENSATION CONSULTING MANAGER TO MONITOR AND EDUCATE ON OXYGEN SATURATION DURING ADLS/IADLS, NOTIFY PHYSICIAN AND/OR THE RN CLINICAL TRANSITIONAL STUDIES INSTRUCTOR FOR PHYSICIAN NOTIFICATION AND IF O2 SATS BELOW 90% AFTER 10 MIN OF REST. OT / MARIANNE TO IDENTIFY FALL RISK FACTORS; EDUCATE THE PATIENT/CAREGIVER ON WAYS TO REDUCE FALL RISK FACTORS AND ESTABLISH HOME EXERCISE PROGRAM TO MINIMIZE FALL RISK. MAY TEACH THE PATIENT FLOOR RECOVERY WHEN CLINICALLY APPROPRIATE. OT/COMPENSATION CONSULTING MANAGER TO EDUCATE ON HYPERTENSION SELF-MANAGEMENT OT/MARIANNE [...] OF SKIN INTEGRITY ISSUES FROM SBA TO AK WITHIN 2 WKS. PT STG: PATIENT WILL [...] TO SAFELY NEGOTIATE STAIRS FROM SBA TO AK WITH 2 STEPS W/O HANDRAIL VIA FRONT [...] End Date/Time Encounter Type Admission Type Attending [facility] Care Department Encounter ID Discharge Date Discharge Status Discharge Condition Discharge Reason Percent Goals Met 2025-02-07 00:00:00 2025-04-07 00:00:00 Outpatient NEW ADMISSION [facility] [id number]
--- OUTSIDE RECORDS SUMMARY | 2025-04-06 18:00 | XMS_ITS | Clinical Summary ---
Author Organization Unknown Care Team Providers Care Census Clerk Name Role Phone DIGNA ARIEL, ESTRELLA Unavailable Unava dinora STOKES RN, FRANKIE Unavailable Unavailabl e KARI PT, DIDI Unavailable Unavailable NAT CANVASSING MANAGER, GAUDENCIO Unavailable Unavailabl e RADHA OT, ROLANDO Unavailable Unavailable JOANNE STEVEN, HATTIE Unavailable Unavailable Payers Payer Name Policy Type Policy Number Effective Date Expira tion Date MEDICARE.[facility] [id number] Problems Condition Name Condition Details Condition Category Status Onset Date Resolution Date Last Treatment Date Treating Clinician Comments 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 02-07 [...] OF PNEUMONIA (RECURRENT) Active 02-07 00:00: 00 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) USE OF SYSTEMIC STEROIDS Active 02-07 [...] 80 mg tablet 02-07 00:00: 00 Yes [id number] CHOLESTEROL 1 tablet DAILY 1 tablet DAILY (route: oral) Med Classific ation: Cardiovas cular Therapy Agents digoxin 125 mcg (0.125 mg) tablet 02-07 00:00: 00 02-21 23:59 :00 No [id number] HEART RHYTHM 1 tablet DAILY 1 tablet DAILY (route: oral) Med Classific ation: Cardiovas cular Therapy Agents escitalopra m 10 mg tablet 02-07 00:00: 00 Yes [id number] MOOD 1 tablet DAILY 1 tablet DAILY (route: oral) Med Classific ation: Central Nervous System Agents ezetimibe 10 mg tablet 02-07 00:00: 00 Yes [id number] CHOLESTEROL 1 tablet DAILY 1 tablet DAILY (route: oral) Med Classific ation: Cardiovas cular Therapy Agents metoprolol succinate ER 25 mg tablet,exte nded release 24 hr 02-07 00:00: 00 02-21 23:59 :00 No [id number] BLOOD PRESSURE 0.5 tablet DAILY 0.5 tablet DAILY (route: oral) Med Classific ation: Cardiovas cular Therapy Agents pantoprazol e 40 mg tablet,joão yed release 02-07 00:00: 00 02-21 23:59 :00 No [id number] STOMACH ACID 1 tablet DAILY 1 tablet DAILY (route: oral) Med Classific ation: Gastroint estinal Therapy Agents prednisone 5 mg tablet 02-07 00:00: 00 Yes [id number] ADRENAL INSUFFICIEN CY 1 tablet DAILY 1 tablet DAILY (route: oral) Med Classific ation: Endocrine spironolact one 25 mg tablet 02-07 00:00: 00 Yes [id number] FLUID RETENTION 0.5 tablet DAILY 0.5 tablet DAILY (route: oral) Med Classific ation: Cardiovas cular Therapy Agents tamsulosin 0.4 mg capsule 02-07 00:00: 00 02-21 23:59 :00 No [id number] URINARY HEALTH 1 capsule DAILY 1 capsule DAILY (route: oral) Med Classific ation: Genitouri nary Therapy acetaminoph en 325 mg tablet 2024-05 00:00: 00 Yes [id number] PAIN 2 tablet 2 TIMES DAILY 2 tablet 2 TIMES DAILY (route: oral) Med Classific ation: Analgesic , Anti-infl ammatory or Antipyret ic aspirin 81 mg tablet 2024-05 00:00: 00 Yes [id number] ANTICOAGULA NT 1 tablet DAILY 1 tablet DAILY (route: oral) Med Classific ation: Hematolog ical Agents ipratropium 0.5 mg-albutero l 3 mg (2.5 mg base)/3 mL nebulizatio n soln 2024-05 00:00: 00 Yes [id number] COPD 3 mL EVERY 6 HOURS 3 mL EVERY 6 HOURS (route: inhalation ) Med Classific ation: Respirato ry Therapy Agents Lanoxin 62.5 mcg (0.0625 mg) tablet 2024-05 00:00: 00 Yes [id number] CHF 1 tablet DAILY 1 tablet DAILY (route: oral) Med Classific ation: Cardiovas cular Therapy Agents Lasix 20 mg tablet 2024-05 00:00: 00 Yes [id number] CHF 1 tablet DAILY 1 tablet DAILY (route: oral) Med Classific ation: Cardiovas cular Therapy Agents Toprol XL 25 mg tablet,exte nded release 2024-05 00:00: 00 Yes [id number] BP 25 mg DAILY 25 mg DAILY [...] SYSTEM MANAGEMENT; RN TO ASSESS AND TEACH, NUTRITION THERAPIST/COURTESY BUS DRIVER TO OBSERVE AND TEACH RELATED TO ALTERED RESPIRATORY STATUS TO MINIMIZE COMPLICATIONS AND REDUCE HOSPITALIZATION. [code = SN 1WK9 PT 1WK1 OT EFFECTIVE 02/10/2025K1 RESPIRATORY SYSTEM MANAGEMENT; RN TO ASSESS AND TEACH, NUTRITION THERAPIST/COURTESY BUS DRIVER TO OBSERVE AND TEACH RELATED TO ALTERED RESPIRATORY STATUS TO MINIMIZE COMPLICATIONS AND REDUCE HOSPITALIZATION.] Future Scheduled Test TRACHEOSTO MY CARE MANAGEMENT; RN/NUTRITION THERAPIST/COURTESY BUS DRIVER TO INSTRUCT PATIENT/CAREGIVER ON CARE AND MANAGEMENT OF TRACHEOSTOMY. RN/ NUTRITION THERAPIST/COURTESY BUS DRIVER TO PROVIDE SKILLED TEACHING ON TRACH COLLAR SUCTIONING PRN WITH 14 FR SUCTION CATHETER PER PATIENT TRACH CARE WITH INNER CANNULA: REMOVE INNER CANNULA, CLEANSE WITH NORMAL SALINE AND OR STERILE WATER AND REINSERT NON-DISPOSABLE CANNULA SIZE OF INNER CANNULA 5 BROOKS [code = TRACHEOSTOMY CARE MANAGEMENT; RN/NUTRITION THERAPIST/COURTESY BUS DRIVER TO INSTRUCT PATIENT/CAREGIVER ON CARE AND MANAGEMENT OF TRACHEOSTOMY. RN/ NUTRITION THERAPIST/COURTESY BUS DRIVER TO PROVIDE SKILLED TEACHING ON TRACH COLLAR SUCTIONING PRN WITH 14 FR SUCTION CATHETER PER PATIENT TRACH CARE WITH INNER CANNULA: REMOVE INNER CANNULA, CLEANSE WITH NORMAL SALINE AND OR STERILE WATER AND REINSERT NON-DISPOSABLE CANNULA SIZE OF INNER CANNULA 5 BROOKS] Future Scheduled Test FALL REDUC TION MANAGEMENT; RN TO ASSESS AND OBSERVE, NUTRITION THERAPIST/COURTESY BUS DRIVER TO OBSERVE FALL RISK FACTORS AND EDUCATE PATIENT/CAREGIVER ON STRATEGIES TO MINIMIZE THE RISK OF FALLING. [code = FALL REDUCTION MANAGEMENT; RN TO ASSESS AND OBSERVE, NUTRITION THERAPIST/COURTESY BUS DRIVER TO OBSERVE FALL RISK FACTORS AND EDUCATE PATIENT/CAREGIVER ON STRATEGIES TO MINIMIZE THE RISK OF FALLING.] Future Scheduled Test ANEMIA MAN AGEMENT; RN TO ASSESS AND TEACH, COURTESY BUS DRIVER/NUTRITION THERAPIST TO OBSERVE AND TEACH AND PROVIDE EDUCATION ON ANEMIA. [code = ANEMIA MANAGEMENT; RN TO ASSESS AND TEACH, COURTESY BUS DRIVER/NUTRITION THERAPIST TO OBSERVE AND TEACH AND PROVIDE EDUCATION ON ANEMIA.] Future Scheduled Test RN TO OBSE RVE, ASSESS, EVALUATE, AND DEVELOP AN INDIVIDUALIZED PLAN OF CARE. AGENCY MAY ACCEPT ORDERS FROM CONSULTING PHYSICIANS RN TO OBSERVE AND ASSESS, NUTRITION THERAPIST/COURTESY BUS DRIVER TO OBSERVE FOR RISK FOR FALLS AND INSTRUCT IN FALL PREVENTION, HOME SAFETY, MEDICATION MANAGEMENT, INFECTION PREVENTION, AND NUTRITION MANAGEMENT. RN/NUTRITION THERAPIST/COURTESY BUS DRIVER NURSE MAY PERFORM O2 SATURATION LEVEL ON ADMISSION AND PRN FOR RN TO ASSESS/NUTRITION THERAPIST TO OBSERVE PATIENT, WITH NOTIFICATION TO THE PHYSICIAN IF SATURATION IS 90% IN THE ABSENCE OF MORE SPECIFIC PARAMETERS FROM THE PHYSICIAN. AGENCY MAY PERFORM A RESUMPTION OF CARE VISIT FOLLOWING ANY HOSPITAL ADMISSION. RN/NUTRITION THERAPIST/COURTESY BUS DRIVER TO MONITOR CO-MORBID CONDITIONS LISTED ON THE PLAN OF CARE AND ANY NEW CONDITIONS THAT PRESENT THEMSELVES DURING THIS EPISODE TO IDENTIFY CHANGES AND INTERVENE TO MINIMIZE COMPLICATIONS. [code = RN TO OBSERVE, ASSESS, EVALUATE, AND DEVELOP AN INDIVIDUALIZED PLAN OF CARE. AGENCY MAY ACCEPT ORDERS FROM CONSULTING PHYSICIANS RN TO OBSERVE AND ASSESS, NUTRITION THERAPIST/COURTESY BUS DRIVER TO OBSERVE FOR RISK FOR FALLS AND INSTRUCT IN FALL PREVENTION, HOME SAFETY, MEDICATION MANAGEMENT, INFECTION PREVENTION, AND NUTRITION MANAGEMENT. RN/NUTRITION THERAPIST/COURTESY BUS DRIVER NURSE MAY PERFORM O2 SATURATION LEVEL ON ADMISSION AND PRN FOR RN TO ASSESS/NUTRITION THERAPIST TO OBSERVE PATIENT, WITH NOTIFICATION TO THE PHYSICIAN IF SATURATION IS 90% IN THE ABSENCE OF MORE SPECIFIC PARAMETERS FROM THE PHYSICIAN. AGENCY MAY PERFORM A RESUMPTION OF CARE VISIT FOLLOWING ANY HOSPITAL ADMISSION. RN/NUTRITION THERAPIST/COURTESY BUS DRIVER TO MONITOR CO-MORBID CONDITIONS LISTED ON THE PLAN OF CARE AND ANY NEW CONDITIONS THAT PRESENT THEMSELVES DURING THIS EPISODE TO IDENTIFY CHANGES AND INTERVENE TO MINIMIZE COMPLICATIONS.] Future Scheduled Test PAIN MANAG EMENT; RN TO ASSESS AND TEACH, COURTESY BUS DRIVER/NUTRITION THERAPIST TO OBSERVE AND TEACH AND PROVIDE EDUCATION ON PAIN MANAGEMENT TECHNIQUES. [code = PAIN MANAGEMENT; RN TO ASSESS AND TEACH, COURTESY BUS DRIVER/NUTRITION THERAPIST TO OBSERVE AND TEACH AND PROVIDE EDUCATION ON PAIN MANAGEMENT TECHNIQUES.] Future Scheduled Test RISK FOR H OSPITALIZATION; RN TO ASSESS/TEACH, COURTESY BUS DRIVER/NUTRITION THERAPIST TO OBSERVE/TEACH PATIENT/CAREGIVER ON RISK FOR HOSPITALIZATION/EMERGENCY ROOM VISITS, TEACH SIGNS AND SYMPTOMS THAT PUT PATIENT AT RISK, WHEN TO NOTIFY NURSE/PHYSICIAN OF COMPLICATIONS/DECLINE, AND WHEN TO CALL 911. [code = RISK FOR HOSPITALIZATION; RN TO ASSESS/TEACH, COURTESY BUS DRIVER/NUTRITION THERAPIST TO OBSERVE/TEACH PATIENT/CAREGIVER ON RISK FOR HOSPITALIZATION/EMERGENCY ROOM VISITS, TEACH SIGNS AND SYMPTOMS THAT PUT PATIENT AT RISK, WHEN TO NOTIFY NURSE/PHYSICIAN OF COMPLICATIONS/DECLINE, AND WHEN TO CALL 911.] Future Scheduled Test CARDIOVASC ULAR SYSTEM; RN TO ASSESS/TEACH, NUTRITION THERAPIST/COURTESY BUS DRIVER TO OBSERVE/TEACH RELATED TO ALTERED CARDIOVASCULAR STATUS TO MINIMIZE COMPLICATIONS AND REDUCE HOSPITALIZATION. [code = CARDIOVASCULAR SYSTEM; RN TO ASSESS/TEACH, NUTRITION THERAPIST/COURTESY BUS DRIVER TO OBSERVE/TEACH RELATED TO ALTERED CARDIOVASCULAR STATUS TO MINIMIZE COMPLICATIONS AND REDUCE HOSPITALIZATION.] Future Scheduled Test HYPERTENSI ON MANAGEMENT; RN TO ASSESS AND TEACH, NUTRITION THERAPIST/COURTESY BUS DRIVER TO OBSERVE AND TEACH WARNING SIGNS AND SYMPTOMS TO AVOID HOSPITALIZATION. [code = HYPERTENSION MANAGEMENT; RN TO ASSESS AND TEACH, NUTRITION THERAPIST/COURTESY BUS DRIVER TO OBSERVE AND TEACH WARNING SIGNS AND SYMPTOMS TO AVOID HOSPITALIZATION.] Future Scheduled Test HEART FAIL URE MONITORING RN/COURTESY BUS DRIVER/NUTRITION THERAPIST TO MONITOR PATIENT FOR SIGNS AND SYMPTOMS OF HEART FAILURE EXACERBATION, MONITOR FOR ADHERENCE WITH MEDICATION AND HEART FAILURE MANAGEMENT REGIMEN. [code = HEART FAILURE MONITORING RN/COURTESY BUS DRIVER/NUTRITION THERAPIST TO MONITOR PATIENT FOR SIGNS AND SYMPTOMS OF HEART FAILURE EXACERBATION, MONITOR FOR ADHERENCE WITH MEDICATION AND HEART FAILURE MANAGEMENT REGIMEN.] Future Scheduled Test DIABETES M ONITORING RN/COURTESY BUS DRIVER/NUTRITION THERAPIST TO MONITOR BLOOD SUGAR LOG FOR BLOOD SUGAR READINGS THAT ARE BEING CHECKED BY PATIENT, CAREGIVER NEEDED FOR SIGNS AND SYMPTOMS OF HYPER/HYPOGLYCEMIA. PATIENT THERAPEUTIC BLOOD SUGAR PARAMETERS ARE 70 - 300. REPORT BLOOD SUGARS OUT OF RANGE TO PHYSICIAN. NURSE MAY PERFORM FINGER STICK BLOOD GLUCOSE NEEDED FOR SIGNS AND SYMPTOMS OF HYPO AND HYPERGLYCEMIA. RN/COURTESY BUS DRIVER/NUTRITION THERAPIST TO MONITOR ADHERENCE OF PATIENT/CAREGIVER PERFORMING DIABETIC FOOT CARE AND MAY PERFORM DIABETIC FOOT CARE PRN. RN/COURTESY BUS DRIVER/NUTRITION THERAPIST TO MONITOR FOR ADHERENCE TO DIABETIC SELF-CARE AND MANAGEMENT INCLUDING MEDICATIONS. [code = DIABETES MONITORING RN/COURTESY BUS DRIVER/NUTRITION THERAPIST TO MONITOR BLOOD SUGAR LOG FOR BLOOD SUGAR READINGS THAT ARE BEING CHECKED BY PATIENT, CAREGIVER NEEDED FOR SIGNS AND SYMPTOMS OF HYPER/HYPOGLYCEMIA. PATIENT THERAPEUTIC BLOOD SUGAR PARAMETERS ARE 70 - 300. REPORT BLOOD SUGARS OUT OF RANGE TO PHYSICIAN. NURSE MAY PERFORM FINGER STICK BLOOD GLUCOSE NEEDED FOR SIGNS AND SYMPTOMS OF HYPO AND HYPERGLYCEMIA. RN/COURTESY BUS DRIVER/NUTRITION THERAPIST TO MONITOR ADHERENCE OF PATIENT/CAREGIVER PERFORMING DIABETIC FOOT CARE AND MAY PERFORM DIABETIC FOOT CARE PRN. RN/COURTESY BUS DRIVER/NUTRITION THERAPIST TO MONITOR FOR ADHERENCE TO DIABETIC SELF-CARE AND MANAGEMENT INCLUDING MEDICATIONS.] Future Scheduled Test HYPOTENSIO N MANAGEMENT; RN TO ASSESS AND TEACH/ NUTRITION THERAPIST /COURTESY BUS DRIVER TO OBSERVE AND TEACH WARNING SIGNS AND SYMPTOMS TO AVOID HOSPITALIZATION. [code = HYPOTENSION MANAGEMENT; RN TO ASSESS AND TEACH/ NUTRITION THERAPIST /COURTESY BUS DRIVER TO OBSERVE AND TEACH WARNING SIGNS AND SYMPTOMS TO AVOID HOSPITALIZATION.] Future Scheduled Test ARRHYTHMIA MANAGEMENT; RN TO ASSESS AND TEACH, NUTRITION THERAPIST/COURTESY BUS DRIVER TO OBSERVE AND TEACH WARNING SIGNS AND SYMPTOMS TO AVOID HOSPITALIZATION. [code = ARRHYTHMIA MANAGEMENT; RN TO ASSESS AND TEACH, NUTRITION THERAPIST/COURTESY BUS DRIVER TO OBSERVE AND TEACH WARNING SIGNS AND SYMPTOMS TO AVOID HOSPITALIZATION.] Future Scheduled Test MEDICATION MANAGEMENT; RN/NUTRITION THERAPIST/COURTESY BUS DRIVER TO REVIEW MEDICATIONS FOR INTERACTIONS, EFFECTIVENESS OF DRUG THERAPY, AND SIGNS/SYMPTOMS OF ADVERSE REACTIONS. MAY INSTRUCT AND REINFORCE MEDICATION TEACHING RELATED TO THE USE OF MEDICATIONS, DOSAGE, FREQUENCY, PURPOSE, SIDE EFFECTS, AND TO REPORT COMPLICATIONS. [code = MEDICATION MANAGEMENT; RN/NUTRITION THERAPIST/COURTESY BUS DRIVER TO REVIEW MEDICATIONS FOR INTERACTIONS, EFFECTIVENESS OF [...] EVAL UATE, OBSERVE / ASSESS, AND MONITOR, CANVASSING MANAGER TO OBSERVE AND MONITOR, PROVIDE SKILLED THERAPEUTIC INTERVENTION, ACTIVITY, EDUCATION, AND TRAINING TO ADDRESS GEN. WEAKNESS, POOR OVERALL ACTIVITY TOLERANCE, AND FUNCTIONAL LIMITATIONS IMPACTING SAFETY AND INDEPENDENCE. BED MOBILITY (PT/CANVASSING MANAGER) PT/CANVASSING MANAGER TO PROVIDE GAIT TRAINING FOR IMPROVED MOBILITY AND /OR TO NORMALIZE GAIT PATTERN THERAPEUTIC EXERCISES AND ESTABLISHING A HOME EXERCISE PROGRAM (PT/CANVASSING MANAGER) PT/CANVASSING MANAGER TO PROVIDE STAIR TRAINING PT / CANVASSING MANAGER TO MONITOR AND EDUCATE ON OXYGEN SATURATION DURING ADLS/IADLS, NOTIFY PHYSICIAN AND/OR THE RN CLINICAL MOLD DRESSER FOR PHYSICIAN NOTIFICATION AND IF O2 SATS BELOW PHYSICIAN ORDERED PARAMETERS AFTER 10 MIN OF REST PT / CANVASSING MANAGER TO OBSERVE FOR EARLY SIGNS AND SYMPTOMS OF DEPRESSION OR DEPRESSION GETTING WORSE AND TO EDUCATE ON HOW TO FIND HELP. PT / CANVASSING MANAGER MAY EDUCATE ON PAIN MANAGEMENT CLINICALLY INDICATED, INCLUDING NON-PHARMACOLOGICAL PAIN REDUCTION TECHNIQUES PT / CANVASSING MANAGER TO MONITOR FOR HYPO/HYPERGLYCEMIA AND CONDUCT ROUTINE FOOT INSPECTIONS. RECORD PATIENT REPORTED BLOOD SUGAR LEVELS AND NOTIFY PHYSICIAN AND/OR THE RN CLINICAL MOLD DRESSER FOR PHYSICIAN NOTIFICATION IF BLOOD SUGAR LEVELS ARE OUTSIDE ORDERED PARAMETERS. TEACH PATIENT/CAREGIVER ON DAILY FOOT INSPECTIONS PT / CANVASSING MANAGER TO INSTRUCT PATIENT/CAREGIVER ON RISK FOR HOSPITALIZATION/EMERGENCY ROOM VISITS, TEACH SIGNS AND SYMPTOMS THAT PUT PATIENT AT RISK, WHEN TO NOTIFY NURSE/PHYSICIAN OF COMPLICATIONS/DECLINE, AND WHEN TO CALL 911. PT/CANVASSING MANAGER TO EDUCATE ON ARTHRITIS SELF-MANAGEMENT PT / CANVASSING MANAGER TO EDUCATE ON HEART FAILURE SELF-MANAGEMENT PT / CANVASSING MANAGER TO EDUCATE ON HYPERTENSION SELF-MANAGEMENT PT TO ASSESS / CANVASSING MANAGER TO MONITOR CARDIO/RESPIRATORY SYSTEM; AND NOTIFY THE PHYSICIAN AND/OR THE RN CLINICAL MOLD DRESSER FOR PHYSICIAN NOTIFICATION FOR EARLY SIGNS AND SYMPTOMS OF EXACERBATION OR DETERIORATION. PT / CANVASSING MANAGER TO EDUCATE ON ATRIAL FIBRILLATION SELF-MANAGEMENT. PT / CANVASSING MANAGER TO EDUCATE ON PNEUMONIA / ASPIRATION PNEUMONIA SELF-MANAGEMENT. PT/CANVASSING MANAGER TO IDENTIFY FALL RISK FACTORS; EDUCATE THE PATIENT/CAREGIVER ON WAYS TO REDUCE FALL RISK FACTORS AND ESTABLISH HOME EXERCISE PROGRAM TO MINIMIZE FALL RISK. MAY TEACH THE PATIENT FLOOR RECOVERY WHEN CLINICALLY APPROPRIATE [code = PT TO EVALUATE, OBSERVE / ASSESS, AND MONITOR, CANVASSING MANAGER TO OBSERVE AND MONITOR, PROVIDE SKILLED THERAPEUTIC INTERVENTION, ACTIVITY, EDUCATION, AND TRAINING TO ADDRESS GEN. WEAKNESS, POOR OVERALL ACTIVITY TOLERANCE, AND FUNCTIONAL LIMITATIONS IMPACTING SAFETY AND INDEPENDENCE. BED MOBILITY (PT/CANVASSING MANAGER) PT/CANVASSING MANAGER TO PROVIDE GAIT TRAINING FOR IMPROVED MOBILITY AND /OR TO NORMALIZE GAIT PATTERN THERAPEUTIC EXERCISES AND ESTABLISHING A HOME EXERCISE PROGRAM (PT/CANVASSING MANAGER) PT/CANVASSING MANAGER TO PROVIDE STAIR TRAINING PT / CANVASSING MANAGER TO MONITOR AND EDUCATE ON OXYGEN SATURATION DURING ADLS/IADLS, NOTIFY PHYSICIAN AND/OR THE RN CLINICAL MOLD DRESSER FOR PHYSICIAN NOTIFICATION AND IF O2 SATS BELOW PHYSICIAN ORDERED PARAMETERS AFTER 10 MIN OF REST PT / CANVASSING MANAGER TO OBSERVE FOR EARLY SIGNS AND SYMPTOMS OF DEPRESSION OR DEPRESSION GETTING WORSE AND TO EDUCATE ON HOW TO FIND HELP. PT / CANVASSING MANAGER MAY EDUCATE ON PAIN MANAGEMENT CLINICALLY INDICATED, INCLUDING NON-PHARMACOLOGICAL PAIN REDUCTION TECHNIQUES PT / CANVASSING MANAGER TO MONITOR FOR HYPO/HYPERGLYCEMIA AND CONDUCT ROUTINE FOOT INSPECTIONS. RECORD PATIENT REPORTED BLOOD SUGAR LEVELS AND NOTIFY PHYSICIAN AND/OR THE RN CLINICAL MOLD DRESSER FOR PHYSICIAN NOTIFICATION IF BLOOD SUGAR LEVELS ARE OUTSIDE ORDERED PARAMETERS. TEACH PATIENT/CAREGIVER ON DAILY FOOT INSPECTIONS PT / CANVASSING MANAGER TO INSTRUCT PATIENT/CAREGIVER ON RISK FOR HOSPITALIZATION/EMERGENCY ROOM VISITS, TEACH SIGNS AND SYMPTOMS THAT PUT PATIENT AT RISK, WHEN TO NOTIFY NURSE/PHYSICIAN OF COMPLICATIONS/DECLINE, AND WHEN TO CALL 911. PT/CANVASSING MANAGER TO EDUCATE ON ARTHRITIS SELF-MANAGEMENT PT / CANVASSING MANAGER TO EDUCATE ON HEART FAILURE SELF-MANAGEMENT PT / CANVASSING MANAGER TO EDUCATE ON HYPERTENSION SELF-MANAGEMENT PT TO ASSESS / CANVASSING MANAGER TO MONITOR CARDIO/RESPIRATORY SYSTEM; AND NOTIFY THE PHYSICIAN AND/OR THE RN CLINICAL MOLD DRESSER FOR PHYSICIAN NOTIFICATION FOR EARLY SIGNS AND SYMPTOMS OF EXACERBATION OR DETERIORATION. PT / CANVASSING MANAGER TO EDUCATE ON ATRIAL FIBRILLATION SELF-MANAGEMENT. PT / CANVASSING MANAGER TO EDUCATE ON PNEUMONIA / ASPIRATION PNEUMONIA SELF-MANAGEMENT. PT/CANVASSING MANAGER TO IDENTIFY FALL RISK FACTORS; EDUCATE THE PATIENT/CAREGIVER ON WAYS TO REDUCE FALL RISK FACTORS AND ESTABLISH HOME EXERCISE PROGRAM TO MINIMIZE FALL RISK. MAY TEACH THE PATIENT FLOOR RECOVERY WHEN CLINICALLY APPROPRIATE] Future Scheduled Test AGENCY MAY PERFORM A RESUMPTION OF CARE VISIT FOLLOWING ANY HOSPITAL ADMISSION. OT TO EVALUATE, OBSERVE / ASSESS, AND MONITOR, MODELING AGENT TO OBSERVE AND MONITOR, PROVIDE SKILLED THERAPEUTIC INTERVENTION, ACTIVITY, EDUCATION, AND TRAINING TO ADDRESS SAFETY AND INDEPENDENCE OF ADLS AND FUNCTIONAL TRANSFERS IN HOME ENVIRONMENT. ACTIVITIES OF DAILY LIVING (OT/MARIANNE) THERAPEUTIC EXERCISE (OT/MODELING AGENT) ENERGY CONSERVATION/ACTIVITY DEMAND (OT/MODELING AGENT) OT/MODELING AGENT TO MONITOR AND EDUCATE ON OXYGEN SATURATION DURING ADLS/IADLS, NOTIFY PHYSICIAN AND/OR THE RN CLINICAL MOLD DRESSER FOR PHYSICIAN NOTIFICATION AND IF O2 SATS BELOW 90% AFTER 10 MIN OF REST. OT / MODELING AGENT TO IDENTIFY FALL RISK FACTORS; EDUCATE THE PATIENT/CAREGIVER ON WAYS TO REDUCE FALL RISK FACTORS AND ESTABLISH HOME EXERCISE PROGRAM TO MINIMIZE FALL RISK. MAY TEACH THE PATIENT FLOOR RECOVERY WHEN CLINICALLY APPROPRIATE. OT/MODELING AGENT TO EDUCATE ON HYPERTENSION SELF-MANAGEMENT OT/MARIANNE TO EDUCATE ON ATRIAL FIBRILLATION SELF-MANAGEMENT. [code = AGENCY MAY PERFORM A RESUMPTION OF CARE VISIT FOLLOWING ANY HOSPITAL ADMISSION. OT TO EVALUATE, OBSERVE / ASSESS, AND MONITOR, MODELING AGENT TO OBSERVE AND MONITOR, PROVIDE SKILLED THERAPEUTIC INTERVENTION, ACTIVITY, EDUCATION, AND TRAINING TO ADDRESS SAFETY AND INDEPENDENCE OF ADLS AND FUNCTIONAL TRANSFERS IN HOME ENVIRONMENT. ACTIVITIES OF DAILY LIVING (OT/MARIANNE) THERAPEUTIC EXERCISE (OT/MODELING AGENT) ENERGY CONSERVATION/ACTIVITY DEMAND (OT/MARIANNE) OT/MODELING AGENT TO MONITOR AND EDUCATE ON OXYGEN SATURATION DURING ADLS/IADLS, NOTIFY PHYSICIAN AND/OR THE RN CLINICAL MOLD DRESSER FOR PHYSICIAN NOTIFICATION AND IF O2 SATS BELOW 90% AFTER 10 MIN OF REST. OT / MARIANNE TO IDENTIFY FALL RISK FACTORS; EDUCATE THE PATIENT/CAREGIVER ON WAYS TO REDUCE FALL RISK FACTORS AND ESTABLISH HOME EXERCISE PROGRAM TO MINIMIZE FALL RISK. MAY TEACH THE PATIENT FLOOR RECOVERY WHEN CLINICALLY APPROPRIATE. OT/MODELING AGENT TO EDUCATE ON HYPERTENSION SELF-MANAGEMENT OT/MARIANNE TO [...] End Date/Time Encounter Type Admission Type Attending [facility] Care Department Encounter ID Discharge Date Discharge Status Discharge Condition Discharge Reason Percent Goals Met 2025-02-07 00:00:00 2025-04-07 00:00:00 Outpatient NEW ADMISSION [facility] [id number]
--- OUTSIDE RECORDS SUMMARY | 2025-04-06 18:00 | XMS_ITS | Clinical Summary ---
Author Organization Unknown Care Team Providers Care Java Web Services Developer Name Role Phone DIGNA ARIEL, ESTRELLA Unavailable Unava dinora STOKES RN, FRANKIE Unavailable Unavailabl e KARI PT, DIDI Unavailable Unavailable NAT FIBER TECHNICIAN, GAUDENCIO Unavailable Unavailabl e RADHA OT, ROLANDO Unavailable Unavailable JOANNE STEVEN, HATTIE Unavailable Unavailable Payers Payer Name Policy Type Policy Number Effective Date Expira tion Date MEDICARE[facility] [id number] Problems Condition Name Condition Details Condition Category Status Onset Date Resolution Date Last Treatment Date Treating Clinician Comments 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 02-07 [...] PNEUMONIA (RECURRENT) Active 02-07 00:00: 00 MANAGER RENEWABLE ENERGY (CURRENT) USE OF SYSTEMIC STEROIDS Active 02-07 [...] 80 mg tablet 02-07 00:00: 00 Yes [id number] CHOLESTEROL 1 tablet DAILY 1 tablet DAILY (route: oral) Med Classific ation: Cardiovas cular Therapy Agents digoxin 125 mcg (0.125 mg) tablet 02-07 00:00: 00 02-21 23:59 :00 No [id number] HEART RHYTHM 1 tablet DAILY 1 tablet DAILY (route: oral) Med Classific ation: Cardiovas cular Therapy Agents escitalopra m 10 mg tablet 02-07 00:00: 00 Yes [id number] MOOD 1 tablet DAILY 1 tablet DAILY (route: oral) Med Classific ation: Central Nervous System Agents ezetimibe 10 mg tablet 02-07 00:00: 00 Yes [id number] CHOLESTEROL 1 tablet DAILY 1 tablet DAILY (route: oral) Med Classific ation: Cardiovas cular Therapy Agents metoprolol succinate ER 25 mg tablet,exte nded release 24 hr 02-07 00:00: 00 02-21 23:59 :00 No [id number] BLOOD PRESSURE 0.5 tablet DAILY 0.5 tablet DAILY (route: oral) Med Classific ation: Cardiovas cular Therapy Agents pantoprazol e 40 mg tablet,joão yed release 02-07 00:00: 00 02-21 23:59 :00 No [id number] STOMACH ACID 1 tablet DAILY 1 tablet DAILY (route: oral) Med Classific ation: Gastroint estinal Therapy Agents prednisone 5 mg tablet 02-07 00:00: 00 Yes [id number] ADRENAL INSUFFICIEN CY 1 tablet DAILY 1 tablet DAILY (route: oral) Med Classific ation: Endocrine spironolact one 25 mg tablet 02-07 00:00: 00 Yes [id number] FLUID RETENTION 0.5 tablet DAILY 0.5 tablet DAILY (route: oral) Med Classific ation: Cardiovas cular Therapy Agents tamsulosin 0.4 mg capsule 02-07 00:00: 00 02-21 23:59 :00 No [id number] URINARY HEALTH 1 capsule DAILY 1 capsule DAILY (route: oral) Med Classific ation: Genitouri nary Therapy acetaminoph en 325 mg tablet 2024-05 00:00: 00 Yes [id number] PAIN 2 tablet 2 TIMES DAILY 2 tablet 2 TIMES DAILY (route: oral) Med Classific ation: Analgesic , Anti-infl ammatory or Antipyret ic aspirin 81 mg tablet 2024-05 00:00: 00 Yes [id number] ANTICOAGULA NT 1 tablet DAILY 1 tablet DAILY (route: oral) Med Classific ation: Hematolog ical Agents ipratropium 0.5 mg-albutero l 3 mg (2.5 mg base)/3 mL nebulizatio n soln 2024-05 00:00: 00 Yes [id number] COPD 3 mL EVERY 6 HOURS 3 mL EVERY 6 HOURS (route: inhalation ) Med Classific ation: Respirato ry Therapy Agents Lanoxin 62.5 mcg (0.0625 mg) tablet 2024-05 00:00: 00 Yes [id number] CHF 1 tablet DAILY 1 tablet DAILY (route: oral) Med Classific ation: Cardiovas cular Therapy Agents Lasix 20 mg tablet 2024-05 00:00: 00 Yes [id number] CHF 1 tablet DAILY 1 tablet DAILY (route: oral) Med Classific ation: Cardiovas cular Therapy Agents Toprol XL 25 mg tablet,exte nded release 2024-05 00:00: 00 Yes [id number] BP 25 mg DAILY 25 mg DAILY [...] SYSTEM MANAGEMENT; RN TO ASSESS AND TEACH, BAND BUILDER/MILK TREATER TO OBSERVE AND TEACH RELATED TO ALTERED RESPIRATORY STATUS TO MINIMIZE COMPLICATIONS AND REDUCE HOSPITALIZATION. [code = SN 1WK9 PT 1WK1 OT EFFECTIVE 02/10/2025K1 RESPIRATORY SYSTEM MANAGEMENT; RN TO ASSESS AND TEACH, BAND BUILDER/MILK TREATER TO OBSERVE AND TEACH RELATED TO ALTERED RESPIRATORY STATUS TO MINIMIZE COMPLICATIONS AND REDUCE HOSPITALIZATION.] Future Scheduled Test TRACHEOSTO MY CARE MANAGEMENT; RN/BAND BUILDER/MILK TREATER TO INSTRUCT PATIENT/CAREGIVER ON CARE AND MANAGEMENT OF TRACHEOSTOMY. RN/ BAND BUILDER/MILK TREATER TO PROVIDE SKILLED TEACHING ON TRACH COLLAR SUCTIONING PRN WITH 14 FR SUCTION CATHETER PER PATIENT TRACH CARE WITH INNER CANNULA: REMOVE INNER CANNULA, CLEANSE WITH NORMAL SALINE AND OR STERILE WATER AND REINSERT NON-DISPOSABLE CANNULA SIZE OF INNER CANNULA 5 BROOKS [code = TRACHEOSTOMY CARE MANAGEMENT; RN/BAND BUILDER/MILK TREATER TO INSTRUCT PATIENT/CAREGIVER ON CARE AND MANAGEMENT OF TRACHEOSTOMY. RN/ BAND BUILDER/MILK TREATER TO PROVIDE SKILLED TEACHING ON TRACH COLLAR SUCTIONING PRN WITH 14 FR SUCTION CATHETER PER PATIENT TRACH CARE WITH INNER CANNULA: REMOVE INNER CANNULA, CLEANSE WITH NORMAL SALINE AND OR STERILE WATER AND REINSERT NON-DISPOSABLE CANNULA SIZE OF INNER CANNULA 5 BROOKS] Future Scheduled Test FALL REDUC TION MANAGEMENT; RN TO ASSESS AND OBSERVE, BAND BUILDER/MILK TREATER TO OBSERVE FALL RISK FACTORS AND EDUCATE PATIENT/CAREGIVER ON STRATEGIES TO MINIMIZE THE RISK OF FALLING. [code = FALL REDUCTION MANAGEMENT; RN TO ASSESS AND OBSERVE, BAND BUILDER/MILK TREATER TO OBSERVE FALL RISK FACTORS AND EDUCATE PATIENT/CAREGIVER ON STRATEGIES TO MINIMIZE THE RISK OF FALLING.] Future Scheduled Test ANEMIA MAN AGEMENT; RN TO ASSESS AND TEACH, MILK TREATER/BAND BUILDER TO OBSERVE AND TEACH AND PROVIDE EDUCATION ON ANEMIA. [code = ANEMIA MANAGEMENT; RN TO ASSESS AND TEACH, MILK TREATER/BAND BUILDER TO OBSERVE AND TEACH AND PROVIDE EDUCATION ON ANEMIA.] Future Scheduled Test RN TO OBSE RVE, ASSESS, EVALUATE, AND DEVELOP AN INDIVIDUALIZED PLAN OF CARE. AGENCY MAY ACCEPT ORDERS FROM CONSULTING PHYSICIANS RN TO OBSERVE AND ASSESS, BAND BUILDER/MILK TREATER TO OBSERVE FOR RISK FOR FALLS AND INSTRUCT IN FALL PREVENTION, HOME SAFETY, MEDICATION MANAGEMENT, INFECTION PREVENTION, AND NUTRITION MANAGEMENT. RN/BAND BUILDER/MILK TREATER NURSE MAY PERFORM O2 SATURATION LEVEL ON ADMISSION AND PRN FOR RN TO ASSESS/BAND BUILDER TO OBSERVE PATIENT, WITH NOTIFICATION TO THE PHYSICIAN IF SATURATION IS 90% IN THE ABSENCE OF MORE SPECIFIC PARAMETERS FROM THE PHYSICIAN. AGENCY MAY PERFORM A RESUMPTION OF CARE VISIT FOLLOWING ANY HOSPITAL ADMISSION. RN/BAND BUILDER/MILK TREATER TO MONITOR CO-MORBID CONDITIONS LISTED ON THE PLAN OF CARE AND ANY NEW CONDITIONS THAT PRESENT THEMSELVES DURING THIS EPISODE TO IDENTIFY CHANGES AND INTERVENE TO MINIMIZE COMPLICATIONS. [code = RN TO OBSERVE, ASSESS, EVALUATE, AND DEVELOP AN INDIVIDUALIZED PLAN OF CARE. AGENCY MAY ACCEPT ORDERS FROM CONSULTING PHYSICIANS RN TO OBSERVE AND ASSESS, BAND BUILDER/MILK TREATER TO OBSERVE FOR RISK FOR FALLS AND INSTRUCT IN FALL PREVENTION, HOME SAFETY, MEDICATION MANAGEMENT, INFECTION PREVENTION, AND NUTRITION MANAGEMENT. RN/BAND BUILDER/MILK TREATER NURSE MAY PERFORM O2 SATURATION LEVEL ON ADMISSION AND PRN FOR RN TO ASSESS/BAND BUILDER TO OBSERVE PATIENT, WITH NOTIFICATION TO THE PHYSICIAN IF SATURATION IS 90% IN THE ABSENCE OF MORE SPECIFIC PARAMETERS FROM THE PHYSICIAN. AGENCY MAY PERFORM A RESUMPTION OF CARE VISIT FOLLOWING ANY HOSPITAL ADMISSION. RN/BAND BUILDER/MILK TREATER TO MONITOR CO-MORBID CONDITIONS LISTED ON THE PLAN OF CARE AND ANY NEW CONDITIONS THAT PRESENT THEMSELVES DURING THIS EPISODE TO IDENTIFY CHANGES AND INTERVENE TO MINIMIZE COMPLICATIONS.] Future Scheduled Test PAIN MANAG EMENT; RN TO ASSESS AND TEACH, MILK TREATER/BAND BUILDER TO OBSERVE AND TEACH AND PROVIDE EDUCATION ON PAIN MANAGEMENT TECHNIQUES. [code = PAIN MANAGEMENT; RN TO ASSESS AND TEACH, MILK TREATER/BAND BUILDER TO OBSERVE AND TEACH AND PROVIDE EDUCATION ON PAIN MANAGEMENT TECHNIQUES.] Future Scheduled Test RISK FOR H OSPITALIZATION; RN TO ASSESS/TEACH, MILK TREATER/BAND BUILDER TO OBSERVE/TEACH PATIENT/CAREGIVER ON RISK FOR HOSPITALIZATION/EMERGENCY ROOM VISITS, TEACH SIGNS AND SYMPTOMS THAT PUT PATIENT AT RISK, WHEN TO NOTIFY NURSE/PHYSICIAN OF COMPLICATIONS/DECLINE, AND WHEN TO CALL 911. [code = RISK FOR HOSPITALIZATION; RN TO ASSESS/TEACH, MILK TREATER/BAND BUILDER TO OBSERVE/TEACH PATIENT/CAREGIVER ON RISK FOR HOSPITALIZATION/EMERGENCY ROOM VISITS, TEACH SIGNS AND SYMPTOMS THAT PUT PATIENT AT RISK, WHEN TO NOTIFY NURSE/PHYSICIAN OF COMPLICATIONS/DECLINE, AND WHEN TO CALL 911.] Future Scheduled Test CARDIOVASC ULAR SYSTEM; RN TO ASSESS/TEACH, BAND BUILDER/MILK TREATER TO OBSERVE/TEACH RELATED TO ALTERED CARDIOVASCULAR STATUS TO MINIMIZE COMPLICATIONS AND REDUCE HOSPITALIZATION. [code = CARDIOVASCULAR SYSTEM; RN TO ASSESS/TEACH, BAND BUILDER/MILK TREATER TO OBSERVE/TEACH RELATED TO ALTERED CARDIOVASCULAR STATUS TO MINIMIZE COMPLICATIONS AND REDUCE HOSPITALIZATION.] Future Scheduled Test HYPERTENSI ON MANAGEMENT; RN TO ASSESS AND TEACH, BAND BUILDER/MILK TREATER TO OBSERVE AND TEACH WARNING SIGNS AND SYMPTOMS TO AVOID HOSPITALIZATION. [code = HYPERTENSION MANAGEMENT; RN TO ASSESS AND TEACH, BAND BUILDER/MILK TREATER TO OBSERVE AND TEACH WARNING SIGNS AND SYMPTOMS TO AVOID HOSPITALIZATION.] Future Scheduled Test HEART FAIL URE MONITORING RN/MILK TREATER/BAND BUILDER TO MONITOR PATIENT FOR SIGNS AND SYMPTOMS OF HEART FAILURE EXACERBATION, MONITOR FOR ADHERENCE WITH MEDICATION AND HEART FAILURE MANAGEMENT REGIMEN. [code = HEART FAILURE MONITORING RN/MILK TREATER/BAND BUILDER TO MONITOR PATIENT FOR SIGNS AND SYMPTOMS OF HEART FAILURE EXACERBATION, MONITOR FOR ADHERENCE WITH MEDICATION AND HEART FAILURE MANAGEMENT REGIMEN.] Future Scheduled Test DIABETES M ONITORING RN/MILK TREATER/BAND BUILDER TO MONITOR BLOOD SUGAR LOG FOR BLOOD SUGAR READINGS THAT ARE BEING CHECKED BY PATIENT, CAREGIVER NEEDED FOR SIGNS AND SYMPTOMS OF HYPER/HYPOGLYCEMIA. PATIENT THERAPEUTIC BLOOD SUGAR PARAMETERS ARE 70 - 300. REPORT BLOOD SUGARS OUT OF RANGE TO PHYSICIAN. NURSE MAY PERFORM FINGER STICK BLOOD GLUCOSE NEEDED FOR SIGNS AND SYMPTOMS OF HYPO AND HYPERGLYCEMIA. RN/MILK TREATER/BAND BUILDER TO MONITOR ADHERENCE OF PATIENT/CAREGIVER PERFORMING DIABETIC FOOT CARE AND MAY PERFORM DIABETIC FOOT CARE PRN. RN/MILK TREATER/BAND BUILDER TO MONITOR FOR ADHERENCE TO DIABETIC SELF-CARE AND MANAGEMENT INCLUDING MEDICATIONS. [code = DIABETES MONITORING RN/MILK TREATER/BAND BUILDER TO MONITOR BLOOD SUGAR LOG FOR BLOOD SUGAR READINGS THAT ARE BEING CHECKED BY PATIENT, CAREGIVER NEEDED FOR SIGNS AND SYMPTOMS OF HYPER/HYPOGLYCEMIA. PATIENT THERAPEUTIC BLOOD SUGAR PARAMETERS ARE 70 - 300. REPORT BLOOD SUGARS OUT OF RANGE TO PHYSICIAN. NURSE MAY PERFORM FINGER STICK BLOOD GLUCOSE NEEDED FOR SIGNS AND SYMPTOMS OF HYPO AND HYPERGLYCEMIA. RN/MILK TREATER/BAND BUILDER TO MONITOR ADHERENCE OF PATIENT/CAREGIVER PERFORMING DIABETIC FOOT CARE AND MAY PERFORM DIABETIC FOOT CARE PRN. RN/MILK TREATER/BAND BUILDER TO MONITOR FOR ADHERENCE TO DIABETIC SELF-CARE AND MANAGEMENT INCLUDING MEDICATIONS.] Future Scheduled Test HYPOTENSIO N MANAGEMENT; RN TO ASSESS AND TEACH/ BAND BUILDER /MILK TREATER TO OBSERVE AND TEACH WARNING SIGNS AND SYMPTOMS TO AVOID HOSPITALIZATION. [code = HYPOTENSION MANAGEMENT; RN TO ASSESS AND TEACH/ BAND BUILDER /MILK TREATER TO OBSERVE AND TEACH WARNING SIGNS AND SYMPTOMS TO AVOID HOSPITALIZATION.] Future Scheduled Test ARRHYTHMIA MANAGEMENT; RN TO ASSESS AND TEACH, BAND BUILDER/MILK TREATER TO OBSERVE AND TEACH WARNING SIGNS AND SYMPTOMS TO AVOID HOSPITALIZATION. [code = ARRHYTHMIA MANAGEMENT; RN TO ASSESS AND TEACH, BAND BUILDER/MILK TREATER TO OBSERVE AND TEACH WARNING SIGNS AND SYMPTOMS TO AVOID HOSPITALIZATION.] Future Scheduled Test MEDICATION MANAGEMENT; RN/BAND BUILDER/MILK TREATER TO REVIEW MEDICATIONS FOR INTERACTIONS, EFFECTIVENESS OF DRUG THERAPY, AND SIGNS/SYMPTOMS OF ADVERSE REACTIONS. MAY INSTRUCT AND REINFORCE MEDICATION TEACHING RELATED TO THE USE OF MEDICATIONS, DOSAGE, FREQUENCY, PURPOSE, SIDE EFFECTS, AND TO REPORT COMPLICATIONS. [code = MEDICATION MANAGEMENT; RN/BAND BUILDER/MILK TREATER TO REVIEW MEDICATIONS FOR INTERACTIONS, EFFECTIVENESS OF [...] EVAL UATE, OBSERVE / ASSESS, AND MONITOR, FIBER TECHNICIAN TO OBSERVE AND MONITOR, PROVIDE SKILLED THERAPEUTIC INTERVENTION, ACTIVITY, EDUCATION, AND TRAINING TO ADDRESS GEN. WEAKNESS, POOR OVERALL ACTIVITY TOLERANCE, AND FUNCTIONAL LIMITATIONS IMPACTING SAFETY AND INDEPENDENCE. BED MOBILITY (PT/FIBER TECHNICIAN) PT/FIBER TECHNICIAN TO PROVIDE GAIT TRAINING FOR IMPROVED MOBILITY AND /OR TO NORMALIZE GAIT PATTERN THERAPEUTIC EXERCISES AND ESTABLISHING A HOME EXERCISE PROGRAM (PT/FIBER TECHNICIAN) PT/FIBER TECHNICIAN TO PROVIDE STAIR TRAINING PT / FIBER TECHNICIAN TO MONITOR AND EDUCATE ON OXYGEN SATURATION DURING ADLS/IADLS, NOTIFY PHYSICIAN AND/OR THE RN CLINICAL DRY HOUSE WHEELER FOR PHYSICIAN NOTIFICATION AND IF O2 SATS BELOW PHYSICIAN ORDERED PARAMETERS AFTER 10 MIN OF REST PT / FIBER TECHNICIAN TO OBSERVE FOR EARLY SIGNS AND SYMPTOMS OF DEPRESSION OR DEPRESSION GETTING WORSE AND TO EDUCATE ON HOW TO FIND HELP. PT / FIBER TECHNICIAN MAY EDUCATE ON PAIN MANAGEMENT CLINICALLY INDICATED, INCLUDING NON-PHARMACOLOGICAL PAIN REDUCTION TECHNIQUES PT / FIBER TECHNICIAN TO MONITOR FOR HYPO/HYPERGLYCEMIA AND CONDUCT ROUTINE FOOT INSPECTIONS. RECORD PATIENT REPORTED BLOOD SUGAR LEVELS AND NOTIFY PHYSICIAN AND/OR THE RN CLINICAL DRY HOUSE WHEELER FOR PHYSICIAN NOTIFICATION IF BLOOD SUGAR LEVELS ARE OUTSIDE ORDERED PARAMETERS. TEACH PATIENT/CAREGIVER ON DAILY FOOT INSPECTIONS PT / FIBER TECHNICIAN TO INSTRUCT PATIENT/CAREGIVER ON RISK FOR HOSPITALIZATION/EMERGENCY ROOM VISITS, TEACH SIGNS AND SYMPTOMS THAT PUT PATIENT AT RISK, WHEN TO NOTIFY NURSE/PHYSICIAN OF COMPLICATIONS/DECLINE, AND WHEN TO CALL 911. PT/FIBER TECHNICIAN TO EDUCATE ON ARTHRITIS SELF-MANAGEMENT PT / FIBER TECHNICIAN TO EDUCATE ON HEART FAILURE SELF-MANAGEMENT PT / FIBER TECHNICIAN TO EDUCATE ON HYPERTENSION SELF-MANAGEMENT PT TO ASSESS / FIBER TECHNICIAN TO MONITOR CARDIO/RESPIRATORY SYSTEM; AND NOTIFY THE PHYSICIAN AND/OR THE RN CLINICAL DRY HOUSE WHEELER FOR PHYSICIAN NOTIFICATION FOR EARLY SIGNS AND SYMPTOMS OF EXACERBATION OR DETERIORATION. PT / FIBER TECHNICIAN TO EDUCATE ON ATRIAL FIBRILLATION SELF-MANAGEMENT. PT / FIBER TECHNICIAN TO EDUCATE ON PNEUMONIA / ASPIRATION PNEUMONIA SELF-MANAGEMENT. PT/FIBER TECHNICIAN TO IDENTIFY FALL RISK FACTORS; EDUCATE THE PATIENT/CAREGIVER ON WAYS TO REDUCE FALL RISK FACTORS AND ESTABLISH HOME EXERCISE PROGRAM TO MINIMIZE FALL RISK. MAY TEACH THE PATIENT FLOOR RECOVERY WHEN CLINICALLY APPROPRIATE [code = PT TO EVALUATE, OBSERVE / ASSESS, AND MONITOR, FIBER TECHNICIAN TO OBSERVE AND MONITOR, PROVIDE SKILLED THERAPEUTIC INTERVENTION, ACTIVITY, EDUCATION, AND TRAINING TO ADDRESS GEN. WEAKNESS, POOR OVERALL ACTIVITY TOLERANCE, AND FUNCTIONAL LIMITATIONS IMPACTING SAFETY AND INDEPENDENCE. BED MOBILITY (PT/FIBER TECHNICIAN) PT/FIBER TECHNICIAN TO PROVIDE GAIT TRAINING FOR IMPROVED MOBILITY AND /OR TO NORMALIZE GAIT PATTERN THERAPEUTIC EXERCISES AND ESTABLISHING A HOME EXERCISE PROGRAM (PT/FIBER TECHNICIAN) PT/FIBER TECHNICIAN TO PROVIDE STAIR TRAINING PT / FIBER TECHNICIAN TO MONITOR AND EDUCATE ON OXYGEN SATURATION DURING ADLS/IADLS, NOTIFY PHYSICIAN AND/OR THE RN CLINICAL DRY HOUSE WHEELER FOR PHYSICIAN NOTIFICATION AND IF O2 SATS BELOW PHYSICIAN ORDERED PARAMETERS AFTER 10 MIN OF REST PT / FIBER TECHNICIAN TO OBSERVE FOR EARLY SIGNS AND SYMPTOMS OF DEPRESSION OR DEPRESSION GETTING WORSE AND TO EDUCATE ON HOW TO FIND HELP. PT / FIBER TECHNICIAN MAY EDUCATE ON PAIN MANAGEMENT CLINICALLY INDICATED, INCLUDING NON-PHARMACOLOGICAL PAIN REDUCTION TECHNIQUES PT / FIBER TECHNICIAN TO MONITOR FOR HYPO/HYPERGLYCEMIA AND CONDUCT ROUTINE FOOT INSPECTIONS. RECORD PATIENT REPORTED BLOOD SUGAR LEVELS AND NOTIFY PHYSICIAN AND/OR THE RN CLINICAL DRY HOUSE WHEELER FOR PHYSICIAN NOTIFICATION IF BLOOD SUGAR LEVELS ARE OUTSIDE ORDERED PARAMETERS. TEACH PATIENT/CAREGIVER ON DAILY FOOT INSPECTIONS PT / FIBER TECHNICIAN TO INSTRUCT PATIENT/CAREGIVER ON RISK FOR HOSPITALIZATION/EMERGENCY ROOM VISITS, TEACH SIGNS AND SYMPTOMS THAT PUT PATIENT AT RISK, WHEN TO NOTIFY NURSE/PHYSICIAN OF COMPLICATIONS/DECLINE, AND WHEN TO CALL 911. PT/FIBER TECHNICIAN TO EDUCATE ON ARTHRITIS SELF-MANAGEMENT PT / FIBER TECHNICIAN TO EDUCATE ON HEART FAILURE SELF-MANAGEMENT PT / FIBER TECHNICIAN TO EDUCATE ON HYPERTENSION SELF-MANAGEMENT PT TO ASSESS / FIBER TECHNICIAN TO MONITOR CARDIO/RESPIRATORY SYSTEM; AND NOTIFY THE PHYSICIAN AND/OR THE RN CLINICAL DRY HOUSE WHEELER FOR PHYSICIAN NOTIFICATION FOR EARLY SIGNS AND SYMPTOMS OF EXACERBATION OR DETERIORATION. PT / FIBER TECHNICIAN TO EDUCATE ON ATRIAL FIBRILLATION SELF-MANAGEMENT. PT / FIBER TECHNICIAN TO EDUCATE ON PNEUMONIA / ASPIRATION PNEUMONIA SELF-MANAGEMENT. PT/FIBER TECHNICIAN TO IDENTIFY FALL RISK FACTORS; EDUCATE THE PATIENT/CAREGIVER ON WAYS TO REDUCE FALL RISK FACTORS AND ESTABLISH HOME EXERCISE PROGRAM TO MINIMIZE FALL RISK. MAY TEACH THE PATIENT FLOOR RECOVERY WHEN CLINICALLY APPROPRIATE] Future Scheduled Test AGENCY MAY PERFORM A RESUMPTION OF CARE VISIT FOLLOWING ANY HOSPITAL ADMISSION. OT TO EVALUATE, OBSERVE / ASSESS, AND MONITOR, PRODUCT ADVISOR TO OBSERVE AND MONITOR, PROVIDE SKILLED THERAPEUTIC INTERVENTION, ACTIVITY, EDUCATION, AND TRAINING TO ADDRESS SAFETY AND INDEPENDENCE OF ADLS AND FUNCTIONAL TRANSFERS IN HOME ENVIRONMENT. ACTIVITIES OF DAILY LIVING (OT/MARIANNE) THERAPEUTIC EXERCISE (OT/PRODUCT ADVISOR) ENERGY CONSERVATION/ACTIVITY DEMAND (OT/PRODUCT ADVISOR) OT/PRODUCT ADVISOR TO MONITOR AND EDUCATE ON OXYGEN SATURATION DURING ADLS/IADLS, NOTIFY PHYSICIAN AND/OR THE RN CLINICAL DRY HOUSE WHEELER FOR PHYSICIAN NOTIFICATION AND IF O2 SATS BELOW 90% AFTER 10 MIN OF REST. OT / PRODUCT ADVISOR TO IDENTIFY FALL RISK FACTORS; EDUCATE THE PATIENT/CAREGIVER ON WAYS TO REDUCE FALL RISK FACTORS AND ESTABLISH HOME EXERCISE PROGRAM TO MINIMIZE FALL RISK. MAY TEACH THE PATIENT FLOOR RECOVERY WHEN CLINICALLY APPROPRIATE. OT/PRODUCT ADVISOR TO EDUCATE ON HYPERTENSION SELF-MANAGEMENT OT/MARIANNE TO EDUCATE ON ATRIAL FIBRILLATION SELF-MANAGEMENT. [code = AGENCY MAY PERFORM A RESUMPTION OF CARE VISIT FOLLOWING ANY HOSPITAL ADMISSION. OT TO EVALUATE, OBSERVE / ASSESS, AND MONITOR, PRODUCT ADVISOR TO OBSERVE AND MONITOR, PROVIDE SKILLED THERAPEUTIC INTERVENTION, ACTIVITY, EDUCATION, AND TRAINING TO ADDRESS SAFETY AND INDEPENDENCE OF ADLS AND FUNCTIONAL TRANSFERS IN HOME ENVIRONMENT. ACTIVITIES OF DAILY LIVING (OT/MARIANNE) THERAPEUTIC EXERCISE (OT/PRODUCT ADVISOR) ENERGY CONSERVATION/ACTIVITY DEMAND (OT/MARIANNE) OT/PRODUCT ADVISOR TO MONITOR AND EDUCATE ON OXYGEN SATURATION DURING ADLS/IADLS, NOTIFY PHYSICIAN AND/OR THE RN CLINICAL DRY HOUSE WHEELER FOR PHYSICIAN NOTIFICATION AND IF O2 SATS BELOW 90% AFTER 10 MIN OF REST. OT / MARIANNE TO IDENTIFY FALL RISK FACTORS; EDUCATE THE PATIENT/CAREGIVER ON WAYS TO REDUCE FALL RISK FACTORS AND ESTABLISH HOME EXERCISE PROGRAM TO MINIMIZE FALL RISK. MAY TEACH THE PATIENT FLOOR RECOVERY WHEN CLINICALLY APPROPRIATE. OT/PRODUCT ADVISOR TO EDUCATE ON HYPERTENSION SELF-MANAGEMENT OT/MARIANNE TO [...] End Date/Time Encounter Type Admission Type Attending [facility] Care Department Encounter ID Discharge Date Discharge Status Discharge Condition Discharge Reason Percent Goals Met 2025-02-07 00:00:00 2025-04-07 00:00:00 Outpatient NEW ADMISSION [facility] [id number]
--- OUTSIDE RECORDS SUMMARY | 2025-04-06 18:00 | XMS_ITS | Clinical Summary ---
Author Organization Unknown Care Team Providers Care Communications Media Professor Name Role Phone DIGNA ARIEL, ESTRELLA Unavailable Unava dinora STOKES RN, FRANKIE Unavailable Unavailabl e KARI PT, DIDI Unavailable Unavailable NAT TAPE LIBRARIAN, GAUDENCIO Unavailable Unavailabl e RADHA OT, ROLANDO Unavailable Unavailable JOANNE STEVEN, HATTIE Unavailable Unavailable Payers Payer Name Policy Type Policy Number Effective Date Expira tion Date MEDICARE.[facility] [id number] Problems Condition Name Condition Details Condition Category Status Onset Date Resolution Date Last Treatment Date Treating Clinician Comments 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 02-07 [...] OF PNEUMONIA (RECURRENT) Active 02-07 00:00: 00 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) USE OF SYSTEMIC STEROIDS Active 02-07 [...] 80 mg tablet 02-07 00:00: 00 Yes [id number] CHOLESTEROL 1 tablet DAILY 1 tablet DAILY (route: oral) Med Classific ation: Cardiovas cular Therapy Agents digoxin 125 mcg (0.125 mg) tablet 02-07 00:00: 00 02-21 23:59 :00 No [id number] HEART RHYTHM 1 tablet DAILY 1 tablet DAILY (route: oral) Med Classific ation: Cardiovas cular Therapy Agents escitalopra m 10 mg tablet 02-07 00:00: 00 Yes [id number] MOOD 1 tablet DAILY 1 tablet DAILY (route: oral) Med Classific ation: Central Nervous System Agents ezetimibe 10 mg tablet 02-07 00:00: 00 Yes [id number] CHOLESTEROL 1 tablet DAILY 1 tablet DAILY (route: oral) Med Classific ation: Cardiovas cular Therapy Agents metoprolol succinate ER 25 mg tablet,exte nded release 24 hr 02-07 00:00: 00 02-21 23:59 :00 No [id number] BLOOD PRESSURE 0.5 tablet DAILY 0.5 tablet DAILY (route: oral) Med Classific ation: Cardiovas cular Therapy Agents pantoprazol e 40 mg tablet,joão yed release 02-07 00:00: 00 02-21 23:59 :00 No [id number] STOMACH ACID 1 tablet DAILY 1 tablet DAILY (route: oral) Med Classific ation: Gastroint estinal Therapy Agents prednisone 5 mg tablet 02-07 00:00: 00 Yes [id number] ADRENAL INSUFFICIEN CY 1 tablet DAILY 1 tablet DAILY (route: oral) Med Classific ation: Endocrine spironolact one 25 mg tablet 02-07 00:00: 00 Yes [id number] FLUID RETENTION 0.5 tablet DAILY 0.5 tablet DAILY (route: oral) Med Classific ation: Cardiovas cular Therapy Agents tamsulosin 0.4 mg capsule 02-07 00:00: 00 02-21 23:59 :00 No [id number] URINARY HEALTH 1 capsule DAILY 1 capsule DAILY (route: oral) Med Classific ation: Genitouri nary Therapy acetaminoph en 325 mg tablet 2024-05 00:00: 00 Yes [id number] PAIN 2 tablet 2 TIMES DAILY 2 tablet 2 TIMES DAILY (route: oral) Med Classific ation: Analgesic , Anti-infl ammatory or Antipyret ic aspirin 81 mg tablet 2024-05 00:00: 00 Yes [id number] ANTICOAGULA NT 1 tablet DAILY 1 tablet DAILY (route: oral) Med Classific ation: Hematolog ical Agents ipratropium 0.5 mg-albutero l 3 mg (2.5 mg base)/3 mL nebulizatio n soln 2024-05 00:00: 00 Yes [id number] COPD 3 mL EVERY 6 HOURS 3 mL EVERY 6 HOURS (route: inhalation ) Med Classific ation: Respirato ry Therapy Agents Lanoxin 62.5 mcg (0.0625 mg) tablet 2024-05 00:00: 00 Yes [id number] CHF 1 tablet DAILY 1 tablet DAILY (route: oral) Med Classific ation: Cardiovas cular Therapy Agents Lasix 20 mg tablet 2024-05 00:00: 00 Yes [id number] CHF 1 tablet DAILY 1 tablet DAILY (route: oral) Med Classific ation: Cardiovas cular Therapy Agents Toprol XL 25 mg tablet,exte nded release 2024-05 00:00: 00 Yes [id number] BP 25 mg DAILY 25 mg DAILY [...] SYSTEM MANAGEMENT; RN TO ASSESS AND TEACH, MOLD ENGRAVER/BATCH AND FURNACE OPERATOR TO OBSERVE AND TEACH RELATED TO ALTERED RESPIRATORY STATUS TO MINIMIZE COMPLICATIONS AND REDUCE HOSPITALIZATION. [code = SN 1WK9 PT 1WK1 OT EFFECTIVE 02/10/2025K1 RESPIRATORY SYSTEM MANAGEMENT; RN TO ASSESS AND TEACH, MOLD ENGRAVER/BATCH AND FURNACE OPERATOR TO OBSERVE AND TEACH RELATED TO ALTERED RESPIRATORY STATUS TO MINIMIZE COMPLICATIONS AND REDUCE HOSPITALIZATION.] Future Scheduled Test TRACHEOSTO MY CARE MANAGEMENT; RN/MOLD ENGRAVER/BATCH AND FURNACE OPERATOR TO INSTRUCT PATIENT/CAREGIVER ON CARE AND MANAGEMENT OF TRACHEOSTOMY. RN/ MOLD ENGRAVER/BATCH AND FURNACE OPERATOR TO PROVIDE SKILLED TEACHING ON TRACH COLLAR SUCTIONING PRN WITH 14 FR SUCTION CATHETER PER PATIENT TRACH CARE WITH INNER CANNULA: REMOVE INNER CANNULA, CLEANSE WITH NORMAL SALINE AND OR STERILE WATER AND REINSERT NON-DISPOSABLE CANNULA SIZE OF INNER CANNULA 5 BROOKS [code = TRACHEOSTOMY CARE MANAGEMENT; RN/MOLD ENGRAVER/BATCH AND FURNACE OPERATOR TO INSTRUCT PATIENT/CAREGIVER ON CARE AND MANAGEMENT OF TRACHEOSTOMY. RN/ MOLD ENGRAVER/BATCH AND FURNACE OPERATOR TO PROVIDE SKILLED TEACHING ON TRACH COLLAR SUCTIONING PRN WITH 14 FR SUCTION CATHETER PER PATIENT TRACH CARE WITH INNER CANNULA: REMOVE INNER CANNULA, CLEANSE WITH NORMAL SALINE AND OR STERILE WATER AND REINSERT NON-DISPOSABLE CANNULA SIZE OF INNER CANNULA 5 BROOKS] Future Scheduled Test FALL REDUC TION MANAGEMENT; RN TO ASSESS AND OBSERVE, MOLD ENGRAVER/BATCH AND FURNACE OPERATOR TO OBSERVE FALL RISK FACTORS AND EDUCATE PATIENT/CAREGIVER ON STRATEGIES TO MINIMIZE THE RISK OF FALLING. [code = FALL REDUCTION MANAGEMENT; RN TO ASSESS AND OBSERVE, MOLD ENGRAVER/BATCH AND FURNACE OPERATOR TO OBSERVE FALL RISK FACTORS AND EDUCATE PATIENT/CAREGIVER ON STRATEGIES TO MINIMIZE THE RISK OF FALLING.] Future Scheduled Test ANEMIA MAN AGEMENT; RN TO ASSESS AND TEACH, BATCH AND FURNACE OPERATOR/MOLD ENGRAVER TO OBSERVE AND TEACH AND PROVIDE EDUCATION ON ANEMIA. [code = ANEMIA MANAGEMENT; RN TO ASSESS AND TEACH, BATCH AND FURNACE OPERATOR/MOLD ENGRAVER TO OBSERVE AND TEACH AND PROVIDE EDUCATION ON ANEMIA.] Future Scheduled Test RN TO OBSE RVE, ASSESS, EVALUATE, AND DEVELOP AN INDIVIDUALIZED PLAN OF CARE. AGENCY MAY ACCEPT ORDERS FROM CONSULTING PHYSICIANS RN TO OBSERVE AND ASSESS, MOLD ENGRAVER/BATCH AND FURNACE OPERATOR TO OBSERVE FOR RISK FOR FALLS AND INSTRUCT IN FALL PREVENTION, HOME SAFETY, MEDICATION MANAGEMENT, INFECTION PREVENTION, AND NUTRITION MANAGEMENT. RN/MOLD ENGRAVER/BATCH AND FURNACE OPERATOR NURSE MAY PERFORM O2 SATURATION LEVEL ON ADMISSION AND PRN FOR RN TO ASSESS/MOLD ENGRAVER TO OBSERVE PATIENT, WITH NOTIFICATION TO THE PHYSICIAN IF SATURATION IS 90% IN THE ABSENCE OF MORE SPECIFIC PARAMETERS FROM THE PHYSICIAN. AGENCY MAY PERFORM A RESUMPTION OF CARE VISIT FOLLOWING ANY HOSPITAL ADMISSION. RN/MOLD ENGRAVER/BATCH AND FURNACE OPERATOR TO MONITOR CO-MORBID CONDITIONS LISTED ON THE PLAN OF CARE AND ANY NEW CONDITIONS THAT PRESENT THEMSELVES DURING THIS EPISODE TO IDENTIFY CHANGES AND INTERVENE TO MINIMIZE COMPLICATIONS. [code = RN TO OBSERVE, ASSESS, EVALUATE, AND DEVELOP AN INDIVIDUALIZED PLAN OF CARE. AGENCY MAY ACCEPT ORDERS FROM CONSULTING PHYSICIANS RN TO OBSERVE AND ASSESS, MOLD ENGRAVER/BATCH AND FURNACE OPERATOR TO OBSERVE FOR RISK FOR FALLS AND INSTRUCT IN FALL PREVENTION, HOME SAFETY, MEDICATION MANAGEMENT, INFECTION PREVENTION, AND NUTRITION MANAGEMENT. RN/MOLD ENGRAVER/BATCH AND FURNACE OPERATOR NURSE MAY PERFORM O2 SATURATION LEVEL ON ADMISSION AND PRN FOR RN TO ASSESS/MOLD ENGRAVER TO OBSERVE PATIENT, WITH NOTIFICATION TO THE PHYSICIAN IF SATURATION IS 90% IN THE ABSENCE OF MORE SPECIFIC PARAMETERS FROM THE PHYSICIAN. AGENCY MAY PERFORM A RESUMPTION OF CARE VISIT FOLLOWING ANY HOSPITAL ADMISSION. RN/MOLD ENGRAVER/BATCH AND FURNACE OPERATOR TO MONITOR CO-MORBID CONDITIONS LISTED ON THE PLAN OF CARE AND ANY NEW CONDITIONS THAT PRESENT THEMSELVES DURING THIS EPISODE TO IDENTIFY CHANGES AND INTERVENE TO MINIMIZE COMPLICATIONS.] Future Scheduled Test PAIN MANAG EMENT; RN TO ASSESS AND TEACH, BATCH AND FURNACE OPERATOR/MOLD ENGRAVER TO OBSERVE AND TEACH AND PROVIDE EDUCATION ON PAIN MANAGEMENT TECHNIQUES. [code = PAIN MANAGEMENT; RN TO ASSESS AND TEACH, BATCH AND FURNACE OPERATOR/MOLD ENGRAVER TO OBSERVE AND TEACH AND PROVIDE EDUCATION ON PAIN MANAGEMENT TECHNIQUES.] Future Scheduled Test RISK FOR H OSPITALIZATION; RN TO ASSESS/TEACH, BATCH AND FURNACE OPERATOR/MOLD ENGRAVER TO OBSERVE/TEACH PATIENT/CAREGIVER ON RISK FOR HOSPITALIZATION/EMERGENCY ROOM VISITS, TEACH SIGNS AND SYMPTOMS THAT PUT PATIENT AT RISK, WHEN TO NOTIFY NURSE/PHYSICIAN OF COMPLICATIONS/DECLINE, AND WHEN TO CALL 911. [code = RISK FOR HOSPITALIZATION; RN TO ASSESS/TEACH, BATCH AND FURNACE OPERATOR/MOLD ENGRAVER TO OBSERVE/TEACH PATIENT/CAREGIVER ON RISK FOR HOSPITALIZATION/EMERGENCY ROOM VISITS, TEACH SIGNS AND SYMPTOMS THAT PUT PATIENT AT RISK, WHEN TO NOTIFY NURSE/PHYSICIAN OF COMPLICATIONS/DECLINE, AND WHEN TO CALL 911.] Future Scheduled Test CARDIOVASC ULAR SYSTEM; RN TO ASSESS/TEACH, MOLD ENGRAVER/BATCH AND FURNACE OPERATOR TO OBSERVE/TEACH RELATED TO ALTERED CARDIOVASCULAR STATUS TO MINIMIZE COMPLICATIONS AND REDUCE HOSPITALIZATION. [code = CARDIOVASCULAR SYSTEM; RN TO ASSESS/TEACH, MOLD ENGRAVER/BATCH AND FURNACE OPERATOR TO OBSERVE/TEACH RELATED TO ALTERED CARDIOVASCULAR STATUS TO MINIMIZE COMPLICATIONS AND REDUCE HOSPITALIZATION.] Future Scheduled Test HYPERTENSI ON MANAGEMENT; RN TO ASSESS AND TEACH, MOLD ENGRAVER/BATCH AND FURNACE OPERATOR TO OBSERVE AND TEACH WARNING SIGNS AND SYMPTOMS TO AVOID HOSPITALIZATION. [code = HYPERTENSION MANAGEMENT; RN TO ASSESS AND TEACH, MOLD ENGRAVER/BATCH AND FURNACE OPERATOR TO OBSERVE AND TEACH WARNING SIGNS AND SYMPTOMS TO AVOID HOSPITALIZATION.] Future Scheduled Test HEART FAIL URE MONITORING RN/BATCH AND FURNACE OPERATOR/MOLD ENGRAVER TO MONITOR PATIENT FOR SIGNS AND SYMPTOMS OF HEART FAILURE EXACERBATION, MONITOR FOR ADHERENCE WITH MEDICATION AND HEART FAILURE MANAGEMENT REGIMEN. [code = HEART FAILURE MONITORING RN/BATCH AND FURNACE OPERATOR/MOLD ENGRAVER TO MONITOR PATIENT FOR SIGNS AND SYMPTOMS OF HEART FAILURE EXACERBATION, MONITOR FOR ADHERENCE WITH MEDICATION AND HEART FAILURE MANAGEMENT REGIMEN.] Future Scheduled Test DIABETES M ONITORING RN/BATCH AND FURNACE OPERATOR/MOLD ENGRAVER TO MONITOR BLOOD SUGAR LOG FOR BLOOD SUGAR READINGS THAT ARE BEING CHECKED BY PATIENT, CAREGIVER NEEDED FOR SIGNS AND SYMPTOMS OF HYPER/HYPOGLYCEMIA. PATIENT THERAPEUTIC BLOOD SUGAR PARAMETERS ARE 70 - 300. REPORT BLOOD SUGARS OUT OF RANGE TO PHYSICIAN. NURSE MAY PERFORM FINGER STICK BLOOD GLUCOSE NEEDED FOR SIGNS AND SYMPTOMS OF HYPO AND HYPERGLYCEMIA. RN/BATCH AND FURNACE OPERATOR/MOLD ENGRAVER TO MONITOR ADHERENCE OF PATIENT/CAREGIVER PERFORMING DIABETIC FOOT CARE AND MAY PERFORM DIABETIC FOOT CARE PRN. RN/BATCH AND FURNACE OPERATOR/MOLD ENGRAVER TO MONITOR FOR ADHERENCE TO DIABETIC SELF-CARE AND MANAGEMENT INCLUDING MEDICATIONS. [code = DIABETES MONITORING RN/BATCH AND FURNACE OPERATOR/MOLD ENGRAVER TO MONITOR BLOOD SUGAR LOG FOR BLOOD SUGAR READINGS THAT ARE BEING CHECKED BY PATIENT, CAREGIVER NEEDED FOR SIGNS AND SYMPTOMS OF HYPER/HYPOGLYCEMIA. PATIENT THERAPEUTIC BLOOD SUGAR PARAMETERS ARE 70 - 300. REPORT BLOOD SUGARS OUT OF RANGE TO PHYSICIAN. NURSE MAY PERFORM FINGER STICK BLOOD GLUCOSE NEEDED FOR SIGNS AND SYMPTOMS OF HYPO AND HYPERGLYCEMIA. RN/BATCH AND FURNACE OPERATOR/MOLD ENGRAVER TO MONITOR ADHERENCE OF PATIENT/CAREGIVER PERFORMING DIABETIC FOOT CARE AND MAY PERFORM DIABETIC FOOT CARE PRN. RN/BATCH AND FURNACE OPERATOR/MOLD ENGRAVER TO MONITOR FOR ADHERENCE TO DIABETIC SELF-CARE AND MANAGEMENT INCLUDING MEDICATIONS.] Future Scheduled Test HYPOTENSIO N MANAGEMENT; RN TO ASSESS AND TEACH/ MOLD ENGRAVER /BATCH AND FURNACE OPERATOR TO OBSERVE AND TEACH WARNING SIGNS AND SYMPTOMS TO AVOID HOSPITALIZATION. [code = HYPOTENSION MANAGEMENT; RN TO ASSESS AND TEACH/ MOLD ENGRAVER /BATCH AND FURNACE OPERATOR TO OBSERVE AND TEACH WARNING SIGNS AND SYMPTOMS TO AVOID HOSPITALIZATION.] Future Scheduled Test ARRHYTHMIA MANAGEMENT; RN TO ASSESS AND TEACH, MOLD ENGRAVER/BATCH AND FURNACE OPERATOR TO OBSERVE AND TEACH WARNING SIGNS AND SYMPTOMS TO AVOID HOSPITALIZATION. [code = ARRHYTHMIA MANAGEMENT; RN TO ASSESS AND TEACH, MOLD ENGRAVER/BATCH AND FURNACE OPERATOR TO OBSERVE AND TEACH WARNING SIGNS AND SYMPTOMS TO AVOID HOSPITALIZATION.] Future Scheduled Test MEDICATION MANAGEMENT; RN/MOLD ENGRAVER/BATCH AND FURNACE OPERATOR TO REVIEW MEDICATIONS FOR INTERACTIONS, EFFECTIVENESS OF DRUG THERAPY, AND SIGNS/SYMPTOMS OF ADVERSE REACTIONS. MAY INSTRUCT AND REINFORCE MEDICATION TEACHING RELATED TO THE USE OF MEDICATIONS, DOSAGE, FREQUENCY, PURPOSE, SIDE EFFECTS, AND TO REPORT COMPLICATIONS. [code = MEDICATION MANAGEMENT; RN/MOLD ENGRAVER/BATCH AND FURNACE OPERATOR TO REVIEW MEDICATIONS FOR INTERACTIONS, EFFECTIVENESS [...] EVAL UATE, OBSERVE / ASSESS, AND MONITOR, TAPE LIBRARIAN TO OBSERVE AND MONITOR, PROVIDE SKILLED THERAPEUTIC INTERVENTION, ACTIVITY, EDUCATION, AND TRAINING TO ADDRESS GEN. WEAKNESS, POOR OVERALL ACTIVITY TOLERANCE, AND FUNCTIONAL LIMITATIONS IMPACTING SAFETY AND INDEPENDENCE. BED MOBILITY (PT/TAPE LIBRARIAN) PT/TAPE LIBRARIAN TO PROVIDE GAIT TRAINING FOR IMPROVED MOBILITY AND /OR TO NORMALIZE GAIT PATTERN THERAPEUTIC EXERCISES AND ESTABLISHING A HOME EXERCISE PROGRAM (PT/TAPE LIBRARIAN) PT/TAPE LIBRARIAN TO PROVIDE STAIR TRAINING PT / TAPE LIBRARIAN TO MONITOR AND EDUCATE ON OXYGEN SATURATION DURING ADLS/IADLS, NOTIFY PHYSICIAN AND/OR THE RN CLINICAL DOUGHNUT MAKER FOR PHYSICIAN NOTIFICATION AND IF O2 SATS BELOW PHYSICIAN ORDERED PARAMETERS AFTER 10 MIN OF REST PT / TAPE LIBRARIAN TO OBSERVE FOR EARLY SIGNS AND SYMPTOMS OF DEPRESSION OR DEPRESSION GETTING WORSE AND TO EDUCATE ON HOW TO FIND HELP. PT / TAPE LIBRARIAN MAY EDUCATE ON PAIN MANAGEMENT CLINICALLY INDICATED, INCLUDING NON-PHARMACOLOGICAL PAIN REDUCTION TECHNIQUES PT / TAPE LIBRARIAN TO MONITOR FOR HYPO/HYPERGLYCEMIA AND CONDUCT ROUTINE FOOT INSPECTIONS. RECORD PATIENT REPORTED BLOOD SUGAR LEVELS AND NOTIFY PHYSICIAN AND/OR THE RN CLINICAL DOUGHNUT MAKER FOR PHYSICIAN NOTIFICATION IF BLOOD SUGAR LEVELS ARE OUTSIDE ORDERED PARAMETERS. TEACH PATIENT/CAREGIVER ON DAILY FOOT INSPECTIONS PT / TAPE LIBRARIAN TO INSTRUCT PATIENT/CAREGIVER ON RISK FOR HOSPITALIZATION/EMERGENCY ROOM VISITS, TEACH SIGNS AND SYMPTOMS THAT PUT PATIENT AT RISK, WHEN TO NOTIFY NURSE/PHYSICIAN OF COMPLICATIONS/DECLINE, AND WHEN TO CALL 911. PT/TAPE LIBRARIAN TO EDUCATE ON ARTHRITIS SELF-MANAGEMENT PT / TAPE LIBRARIAN TO EDUCATE ON HEART FAILURE SELF-MANAGEMENT PT / TAPE LIBRARIAN TO EDUCATE ON HYPERTENSION SELF-MANAGEMENT PT TO ASSESS / TAPE LIBRARIAN TO MONITOR CARDIO/RESPIRATORY SYSTEM; AND NOTIFY THE PHYSICIAN AND/OR THE RN CLINICAL DOUGHNUT MAKER FOR PHYSICIAN NOTIFICATION FOR EARLY SIGNS AND SYMPTOMS OF EXACERBATION OR DETERIORATION. PT / TAPE LIBRARIAN TO EDUCATE ON ATRIAL FIBRILLATION SELF-MANAGEMENT. PT / TAPE LIBRARIAN TO EDUCATE ON PNEUMONIA / ASPIRATION PNEUMONIA SELF-MANAGEMENT. PT/TAPE LIBRARIAN TO IDENTIFY FALL RISK FACTORS; EDUCATE THE PATIENT/CAREGIVER ON WAYS TO REDUCE FALL RISK FACTORS AND ESTABLISH HOME EXERCISE PROGRAM TO MINIMIZE FALL RISK. MAY TEACH THE PATIENT FLOOR RECOVERY WHEN CLINICALLY APPROPRIATE [code = PT TO EVALUATE, OBSERVE / ASSESS, AND MONITOR, TAPE LIBRARIAN TO OBSERVE AND MONITOR, PROVIDE SKILLED THERAPEUTIC INTERVENTION, ACTIVITY, EDUCATION, AND TRAINING TO ADDRESS GEN. WEAKNESS, POOR OVERALL ACTIVITY TOLERANCE, AND FUNCTIONAL LIMITATIONS IMPACTING SAFETY AND INDEPENDENCE. BED MOBILITY (PT/TAPE LIBRARIAN) PT/TAPE LIBRARIAN TO PROVIDE GAIT TRAINING FOR IMPROVED MOBILITY AND /OR TO NORMALIZE GAIT PATTERN THERAPEUTIC EXERCISES AND ESTABLISHING A HOME EXERCISE PROGRAM (PT/TAPE LIBRARIAN) PT/TAPE LIBRARIAN TO PROVIDE STAIR TRAINING PT / TAPE LIBRARIAN TO MONITOR AND EDUCATE ON OXYGEN SATURATION DURING ADLS/IADLS, NOTIFY PHYSICIAN AND/OR THE RN CLINICAL DOUGHNUT MAKER FOR PHYSICIAN NOTIFICATION AND IF O2 SATS BELOW PHYSICIAN ORDERED PARAMETERS AFTER 10 MIN OF REST PT / TAPE LIBRARIAN TO OBSERVE FOR EARLY SIGNS AND SYMPTOMS OF DEPRESSION OR DEPRESSION GETTING WORSE AND TO EDUCATE ON HOW TO FIND HELP. PT / TAPE LIBRARIAN MAY EDUCATE ON PAIN MANAGEMENT CLINICALLY INDICATED, INCLUDING NON-PHARMACOLOGICAL PAIN REDUCTION TECHNIQUES PT / TAPE LIBRARIAN TO MONITOR FOR HYPO/HYPERGLYCEMIA AND CONDUCT ROUTINE FOOT INSPECTIONS. RECORD PATIENT REPORTED BLOOD SUGAR LEVELS AND NOTIFY PHYSICIAN AND/OR THE RN CLINICAL DOUGHNUT MAKER FOR PHYSICIAN NOTIFICATION IF BLOOD SUGAR LEVELS ARE OUTSIDE ORDERED PARAMETERS. TEACH PATIENT/CAREGIVER ON DAILY FOOT INSPECTIONS PT / TAPE LIBRARIAN TO INSTRUCT PATIENT/CAREGIVER ON RISK FOR HOSPITALIZATION/EMERGENCY ROOM VISITS, TEACH SIGNS AND SYMPTOMS THAT PUT PATIENT AT RISK, WHEN TO NOTIFY NURSE/PHYSICIAN OF COMPLICATIONS/DECLINE, AND WHEN TO CALL 911. PT/TAPE LIBRARIAN TO EDUCATE ON ARTHRITIS SELF-MANAGEMENT PT / TAPE LIBRARIAN TO EDUCATE ON HEART FAILURE SELF-MANAGEMENT PT / TAPE LIBRARIAN TO EDUCATE ON HYPERTENSION SELF-MANAGEMENT PT TO ASSESS / TAPE LIBRARIAN TO MONITOR CARDIO/RESPIRATORY SYSTEM; AND NOTIFY THE PHYSICIAN AND/OR THE RN CLINICAL DOUGHNUT MAKER FOR PHYSICIAN NOTIFICATION FOR EARLY SIGNS AND SYMPTOMS OF EXACERBATION OR DETERIORATION. PT / TAPE LIBRARIAN TO EDUCATE ON ATRIAL FIBRILLATION SELF-MANAGEMENT. PT / TAPE LIBRARIAN TO EDUCATE ON PNEUMONIA / ASPIRATION PNEUMONIA SELF-MANAGEMENT. PT/TAPE LIBRARIAN TO IDENTIFY FALL RISK FACTORS; EDUCATE THE PATIENT/CAREGIVER ON WAYS TO REDUCE FALL RISK FACTORS AND ESTABLISH HOME EXERCISE PROGRAM TO MINIMIZE FALL RISK. MAY TEACH THE PATIENT FLOOR RECOVERY WHEN CLINICALLY APPROPRIATE] Future Scheduled Test AGENCY MAY PERFORM A RESUMPTION OF CARE VISIT FOLLOWING ANY HOSPITAL ADMISSION. OT TO EVALUATE, OBSERVE / ASSESS, AND MONITOR, SEWAGE RETICULATION DRAFTING OFFICER TO OBSERVE AND MONITOR, PROVIDE SKILLED THERAPEUTIC INTERVENTION, ACTIVITY, EDUCATION, AND TRAINING TO ADDRESS SAFETY AND INDEPENDENCE OF ADLS AND FUNCTIONAL TRANSFERS IN HOME ENVIRONMENT. ACTIVITIES OF DAILY LIVING (OT/MARIANNE) THERAPEUTIC EXERCISE (OT/SEWAGE RETICULATION DRAFTING OFFICER) ENERGY CONSERVATION/ACTIVITY DEMAND (OT/SEWAGE RETICULATION DRAFTING OFFICER) OT/SEWAGE RETICULATION DRAFTING OFFICER TO MONITOR AND EDUCATE ON OXYGEN SATURATION DURING ADLS/IADLS, NOTIFY PHYSICIAN AND/OR THE RN CLINICAL DOUGHNUT MAKER FOR PHYSICIAN NOTIFICATION AND IF O2 SATS BELOW 90% AFTER 10 MIN OF REST. OT / SEWAGE RETICULATION DRAFTING OFFICER TO IDENTIFY FALL RISK FACTORS; EDUCATE THE PATIENT/CAREGIVER ON WAYS TO REDUCE FALL RISK FACTORS AND ESTABLISH HOME EXERCISE PROGRAM TO MINIMIZE FALL RISK. MAY TEACH THE PATIENT FLOOR RECOVERY WHEN CLINICALLY APPROPRIATE. OT/SEWAGE RETICULATION DRAFTING OFFICER TO EDUCATE ON HYPERTENSION SELF-MANAGEMENT OT/MARIANNE TO EDUCATE ON ATRIAL FIBRILLATION SELF-MANAGEMENT. [code = AGENCY MAY PERFORM A RESUMPTION OF CARE VISIT FOLLOWING ANY HOSPITAL ADMISSION. OT TO EVALUATE, OBSERVE / ASSESS, AND MONITOR, SEWAGE RETICULATION DRAFTING OFFICER TO OBSERVE AND MONITOR, PROVIDE SKILLED THERAPEUTIC INTERVENTION, ACTIVITY, EDUCATION, AND TRAINING TO ADDRESS SAFETY AND INDEPENDENCE OF ADLS AND FUNCTIONAL TRANSFERS IN HOME ENVIRONMENT. ACTIVITIES OF DAILY LIVING (OT/MARIANNE) THERAPEUTIC EXERCISE (OT/SEWAGE RETICULATION DRAFTING OFFICER) ENERGY CONSERVATION/ACTIVITY DEMAND (OT/MARIANNE) OT/SEWAGE RETICULATION DRAFTING OFFICER TO MONITOR AND EDUCATE ON OXYGEN SATURATION DURING ADLS/IADLS, NOTIFY PHYSICIAN AND/OR THE RN CLINICAL DOUGHNUT MAKER FOR PHYSICIAN NOTIFICATION AND IF O2 SATS BELOW 90% AFTER 10 MIN OF REST. OT / MARIANNE TO IDENTIFY FALL RISK FACTORS; EDUCATE THE PATIENT/CAREGIVER ON WAYS TO REDUCE FALL RISK FACTORS AND ESTABLISH HOME EXERCISE PROGRAM TO MINIMIZE FALL RISK. MAY TEACH THE PATIENT FLOOR RECOVERY WHEN CLINICALLY APPROPRIATE. OT/SEWAGE RETICULATION DRAFTING OFFICER TO EDUCATE ON HYPERTENSION SELF-MANAGEMENT OT/MARIANNE TO [...] End Date/Time Encounter Type Admission Type Attending [facility] Care Department Encounter ID Discharge Date Discharge Status Discharge Condition Discharge Reason Percent Goals Met 2025-02-07 00:00:00 2025-04-07 00:00:00 Outpatient NEW ADMISSION [facility] [id number]
--- OUTSIDE RECORDS SUMMARY | 2025-04-06 18:00 | XMS_ITS | Clinical Summary ---
Author Organization Unknown Care Team Providers Care Airline Pilot Flight Instructor Name Role Phone DIGNA ARIEL, ESTRELLA Unavailable Unava dinora STOKES RN, FRANKIE Unavailable Unavailabl e KARI PT, DIDI Unavailable Unavailable NAT CONTENT DIRECTOR, GAUDENCIO Unavailable Unavailabl e RADHA OT, ROLANDO Unavailable Unavailable JOANNE STEVEN, HATTIE Unavailable Unavailable Payers Payer Name Policy Type Policy Number Effective Date Expira tion Date MEDICARE.[facility] [id number] Problems Condition Name Condition Details Condition Category Status Onset Date Resolution Date Last Treatment Date Treating Clinician Comments 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: 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 02-07 [...] OF PNEUMONIA (RECURRENT) Active 02-07 00:00: 00 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) USE OF SYSTEMIC STEROIDS Active 02-07 [...] 80 mg tablet 02-07 00:00: 00 Yes [id number] CHOLESTEROL 1 tablet DAILY 1 tablet DAILY (route: oral) Med Classific ation: Cardiovas cular Therapy Agents digoxin 125 mcg (0.125 mg) tablet 02-07 00:00: 00 02-21 23:59 :00 No [id number] HEART RHYTHM 1 tablet DAILY 1 tablet DAILY (route: oral) Med Classific ation: Cardiovas cular Therapy Agents escitalopra m 10 mg tablet 02-07 00:00: 00 Yes [id number] MOOD 1 tablet DAILY 1 tablet DAILY (route: oral) Med Classific ation: Central Nervous System Agents ezetimibe 10 mg tablet 02-07 00:00: 00 Yes [id number] CHOLESTEROL 1 tablet DAILY 1 tablet DAILY (route: oral) Med Classific ation: Cardiovas cular Therapy Agents metoprolol succinate ER 25 mg tablet,exte nded release 24 hr 02-07 00:00: 00 02-21 23:59 :00 No [id number] BLOOD PRESSURE 0.5 tablet DAILY 0.5 tablet DAILY (route: oral) Med Classific ation: Cardiovas cular Therapy Agents pantoprazol e 40 mg tablet,joão yed release 02-07 00:00: 00 02-21 23:59 :00 No [id number] STOMACH ACID 1 tablet DAILY 1 tablet DAILY (route: oral) Med Classific ation: Gastroint estinal Therapy Agents prednisone 5 mg tablet 02-07 00:00: 00 Yes [id number] ADRENAL INSUFFICIEN CY 1 tablet DAILY 1 tablet DAILY (route: oral) Med Classific ation: Endocrine spironolact one 25 mg tablet 02-07 00:00: 00 Yes [id number] FLUID RETENTION 0.5 tablet DAILY 0.5 tablet DAILY (route: oral) Med Classific ation: Cardiovas cular Therapy Agents tamsulosin 0.4 mg capsule 02-07 00:00: 00 02-21 23:59 :00 No [id number] URINARY HEALTH 1 capsule DAILY 1 capsule DAILY (route: oral) Med Classific ation: Genitouri nary Therapy acetaminoph en 325 mg tablet 2024-05 00:00: 00 Yes [id number] PAIN 2 tablet 2 TIMES DAILY 2 tablet 2 TIMES DAILY (route: oral) Med Classific ation: Analgesic , Anti-infl ammatory or Antipyret ic aspirin 81 mg tablet 2024-05 00:00: 00 Yes [id number] ANTICOAGULA NT 1 tablet DAILY 1 tablet DAILY (route: oral) Med Classific ation: Hematolog ical Agents ipratropium 0.5 mg-albutero l 3 mg (2.5 mg base)/3 mL nebulizatio n soln 2024-05 00:00: 00 Yes [id number] COPD 3 mL EVERY 6 HOURS 3 mL EVERY 6 HOURS (route: inhalation ) Med Classific ation: Respirato ry Therapy Agents Lanoxin 62.5 mcg (0.0625 mg) tablet 2024-05 00:00: 00 Yes [id number] CHF 1 tablet DAILY 1 tablet DAILY (route: oral) Med Classific ation: Cardiovas cular Therapy Agents Lasix 20 mg tablet 2024-05 00:00: 00 Yes [id number] CHF 1 tablet DAILY 1 tablet DAILY (route: oral) Med Classific ation: Cardiovas cular Therapy Agents Toprol XL 25 mg tablet,exte nded release 2024-05 00:00: 00 Yes [id number] BP 25 mg DAILY 25 mg DAILY [...] SYSTEM MANAGEMENT; RN TO ASSESS AND TEACH, SEISMIC PROSPECTING OBSERVER HELPER/OPTICAL SALES ASSOCIATE TO OBSERVE AND TEACH RELATED TO ALTERED RESPIRATORY STATUS TO MINIMIZE COMPLICATIONS AND REDUCE HOSPITALIZATION. [code = SN 1WK9 PT 1WK1 OT EFFECTIVE 02/10/2025K1 RESPIRATORY SYSTEM MANAGEMENT; RN TO ASSESS AND TEACH, SEISMIC PROSPECTING OBSERVER HELPER/OPTICAL SALES ASSOCIATE TO OBSERVE AND TEACH RELATED TO ALTERED RESPIRATORY STATUS TO MINIMIZE COMPLICATIONS AND REDUCE HOSPITALIZATION.] Future Scheduled Test TRACHEOSTO MY CARE MANAGEMENT; RN/SEISMIC PROSPECTING OBSERVER HELPER/OPTICAL SALES ASSOCIATE TO INSTRUCT PATIENT/CAREGIVER ON CARE AND MANAGEMENT OF TRACHEOSTOMY. RN/ SEISMIC PROSPECTING OBSERVER HELPER/OPTICAL SALES ASSOCIATE TO PROVIDE SKILLED TEACHING ON TRACH COLLAR SUCTIONING PRN WITH 14 FR SUCTION CATHETER PER PATIENT TRACH CARE WITH INNER CANNULA: REMOVE INNER CANNULA, CLEANSE WITH NORMAL SALINE AND OR STERILE WATER AND REINSERT NON-DISPOSABLE CANNULA SIZE OF INNER CANNULA 5 BROOKS [code = TRACHEOSTOMY CARE MANAGEMENT; RN/SEISMIC PROSPECTING OBSERVER HELPER/OPTICAL SALES ASSOCIATE TO INSTRUCT PATIENT/CAREGIVER ON CARE AND MANAGEMENT OF TRACHEOSTOMY. RN/ SEISMIC PROSPECTING OBSERVER HELPER/OPTICAL SALES ASSOCIATE TO PROVIDE SKILLED TEACHING ON TRACH COLLAR SUCTIONING PRN WITH 14 FR SUCTION CATHETER PER PATIENT TRACH CARE WITH INNER CANNULA: REMOVE INNER CANNULA, CLEANSE WITH NORMAL SALINE AND OR STERILE WATER AND REINSERT NON-DISPOSABLE CANNULA SIZE OF INNER CANNULA 5 BROOKS] Future Scheduled Test FALL REDUC TION MANAGEMENT; RN TO ASSESS AND OBSERVE, SEISMIC PROSPECTING OBSERVER HELPER/OPTICAL SALES ASSOCIATE TO OBSERVE FALL RISK FACTORS AND EDUCATE PATIENT/CAREGIVER ON STRATEGIES TO MINIMIZE THE RISK OF FALLING. [code = FALL REDUCTION MANAGEMENT; RN TO ASSESS AND OBSERVE, SEISMIC PROSPECTING OBSERVER HELPER/OPTICAL SALES ASSOCIATE TO OBSERVE FALL RISK FACTORS AND EDUCATE PATIENT/CAREGIVER ON STRATEGIES TO MINIMIZE THE RISK OF FALLING.] Future Scheduled Test ANEMIA MAN AGEMENT; RN TO ASSESS AND TEACH, OPTICAL SALES ASSOCIATE/SEISMIC PROSPECTING OBSERVER HELPER TO OBSERVE AND TEACH AND PROVIDE EDUCATION ON ANEMIA. [code = ANEMIA MANAGEMENT; RN TO ASSESS AND TEACH, OPTICAL SALES ASSOCIATE/SEISMIC PROSPECTING OBSERVER HELPER TO OBSERVE AND TEACH AND PROVIDE EDUCATION ON ANEMIA.] Future Scheduled Test RN TO OBSE RVE, ASSESS, EVALUATE, AND DEVELOP AN INDIVIDUALIZED PLAN OF CARE. AGENCY MAY ACCEPT ORDERS FROM CONSULTING PHYSICIANS RN TO OBSERVE AND ASSESS, SEISMIC PROSPECTING OBSERVER HELPER/OPTICAL SALES ASSOCIATE TO OBSERVE FOR RISK FOR FALLS AND INSTRUCT IN FALL PREVENTION, HOME SAFETY, MEDICATION MANAGEMENT, INFECTION PREVENTION, AND NUTRITION MANAGEMENT. RN/SEISMIC PROSPECTING OBSERVER HELPER/OPTICAL SALES ASSOCIATE NURSE MAY PERFORM O2 SATURATION LEVEL ON ADMISSION AND PRN FOR RN TO ASSESS/SEISMIC PROSPECTING OBSERVER HELPER TO OBSERVE PATIENT, WITH NOTIFICATION TO THE PHYSICIAN IF SATURATION IS 90% IN THE ABSENCE OF MORE SPECIFIC PARAMETERS FROM THE PHYSICIAN. AGENCY MAY PERFORM A RESUMPTION OF CARE VISIT FOLLOWING ANY HOSPITAL ADMISSION. RN/SEISMIC PROSPECTING OBSERVER HELPER/OPTICAL SALES ASSOCIATE TO MONITOR CO-MORBID CONDITIONS LISTED ON THE PLAN OF CARE AND ANY NEW CONDITIONS THAT PRESENT THEMSELVES DURING THIS EPISODE TO IDENTIFY CHANGES AND INTERVENE TO MINIMIZE COMPLICATIONS. [code = RN TO OBSERVE, ASSESS, EVALUATE, AND DEVELOP AN INDIVIDUALIZED PLAN OF CARE. AGENCY MAY ACCEPT ORDERS FROM CONSULTING PHYSICIANS RN TO OBSERVE AND ASSESS, SEISMIC PROSPECTING OBSERVER HELPER/OPTICAL SALES ASSOCIATE TO OBSERVE FOR RISK FOR FALLS AND INSTRUCT IN FALL PREVENTION, HOME SAFETY, MEDICATION MANAGEMENT, INFECTION PREVENTION, AND NUTRITION MANAGEMENT. RN/SEISMIC PROSPECTING OBSERVER HELPER/OPTICAL SALES ASSOCIATE NURSE MAY PERFORM O2 SATURATION LEVEL ON ADMISSION AND PRN FOR RN TO ASSESS/SEISMIC PROSPECTING OBSERVER HELPER TO OBSERVE PATIENT, WITH NOTIFICATION TO THE PHYSICIAN IF SATURATION IS 90% IN THE ABSENCE OF MORE SPECIFIC PARAMETERS FROM THE PHYSICIAN. AGENCY MAY PERFORM A RESUMPTION OF CARE VISIT FOLLOWING ANY HOSPITAL ADMISSION. RN/SEISMIC PROSPECTING OBSERVER HELPER/OPTICAL SALES ASSOCIATE TO MONITOR CO-MORBID CONDITIONS LISTED ON THE PLAN OF CARE AND ANY NEW CONDITIONS THAT PRESENT THEMSELVES DURING THIS EPISODE TO IDENTIFY CHANGES AND INTERVENE TO MINIMIZE COMPLICATIONS.] Future Scheduled Test PAIN MANAG EMENT; RN TO ASSESS AND TEACH, OPTICAL SALES ASSOCIATE/SEISMIC PROSPECTING OBSERVER HELPER TO OBSERVE AND TEACH AND PROVIDE EDUCATION ON PAIN MANAGEMENT TECHNIQUES. [code = PAIN MANAGEMENT; RN TO ASSESS AND TEACH, OPTICAL SALES ASSOCIATE/SEISMIC PROSPECTING OBSERVER HELPER TO OBSERVE AND TEACH AND PROVIDE EDUCATION ON PAIN MANAGEMENT TECHNIQUES.] Future Scheduled Test RISK FOR H OSPITALIZATION; RN TO ASSESS/TEACH, OPTICAL SALES ASSOCIATE/SEISMIC PROSPECTING OBSERVER HELPER TO OBSERVE/TEACH PATIENT/CAREGIVER ON RISK FOR HOSPITALIZATION/EMERGENCY ROOM VISITS, TEACH SIGNS AND SYMPTOMS THAT PUT PATIENT AT RISK, WHEN TO NOTIFY NURSE/PHYSICIAN OF COMPLICATIONS/DECLINE, AND WHEN TO CALL 911. [code = RISK FOR HOSPITALIZATION; RN TO ASSESS/TEACH, OPTICAL SALES ASSOCIATE/SEISMIC PROSPECTING OBSERVER HELPER TO OBSERVE/TEACH PATIENT/CAREGIVER ON RISK FOR HOSPITALIZATION/EMERGENCY ROOM VISITS, TEACH SIGNS AND SYMPTOMS THAT PUT PATIENT AT RISK, WHEN TO NOTIFY NURSE/PHYSICIAN OF COMPLICATIONS/DECLINE, AND WHEN TO CALL 911.] Future Scheduled Test CARDIOVASC ULAR SYSTEM; RN TO ASSESS/TEACH, SEISMIC PROSPECTING OBSERVER HELPER/OPTICAL SALES ASSOCIATE TO OBSERVE/TEACH RELATED TO ALTERED CARDIOVASCULAR STATUS TO MINIMIZE COMPLICATIONS AND REDUCE HOSPITALIZATION. [code = CARDIOVASCULAR SYSTEM; RN TO ASSESS/TEACH, SEISMIC PROSPECTING OBSERVER HELPER/OPTICAL SALES ASSOCIATE TO OBSERVE/TEACH RELATED TO ALTERED CARDIOVASCULAR STATUS TO MINIMIZE COMPLICATIONS AND REDUCE HOSPITALIZATION.] Future Scheduled Test HYPERTENSI ON MANAGEMENT; RN TO ASSESS AND TEACH, SEISMIC PROSPECTING OBSERVER HELPER/OPTICAL SALES ASSOCIATE TO OBSERVE AND TEACH WARNING SIGNS AND SYMPTOMS TO AVOID HOSPITALIZATION. [code = HYPERTENSION MANAGEMENT; RN TO ASSESS AND TEACH, SEISMIC PROSPECTING OBSERVER HELPER/OPTICAL SALES ASSOCIATE TO OBSERVE AND TEACH WARNING SIGNS AND SYMPTOMS TO AVOID HOSPITALIZATION.] Future Scheduled Test HEART FAIL URE MONITORING RN/OPTICAL SALES ASSOCIATE/SEISMIC PROSPECTING OBSERVER HELPER TO MONITOR PATIENT FOR SIGNS AND SYMPTOMS OF HEART FAILURE EXACERBATION, MONITOR FOR ADHERENCE WITH MEDICATION AND HEART FAILURE MANAGEMENT REGIMEN. [code = HEART FAILURE MONITORING RN/OPTICAL SALES ASSOCIATE/SEISMIC PROSPECTING OBSERVER HELPER TO MONITOR PATIENT FOR SIGNS AND SYMPTOMS OF HEART FAILURE EXACERBATION, MONITOR FOR ADHERENCE WITH MEDICATION AND HEART FAILURE MANAGEMENT REGIMEN.] Future Scheduled Test DIABETES M ONITORING RN/OPTICAL SALES ASSOCIATE/SEISMIC PROSPECTING OBSERVER HELPER TO MONITOR BLOOD SUGAR LOG FOR BLOOD SUGAR READINGS THAT ARE BEING CHECKED BY PATIENT, CAREGIVER NEEDED FOR SIGNS AND SYMPTOMS OF HYPER/HYPOGLYCEMIA. PATIENT THERAPEUTIC BLOOD SUGAR PARAMETERS ARE 70 - 300. REPORT BLOOD SUGARS OUT OF RANGE TO PHYSICIAN. NURSE MAY PERFORM FINGER STICK BLOOD GLUCOSE NEEDED FOR SIGNS AND SYMPTOMS OF HYPO AND HYPERGLYCEMIA. RN/OPTICAL SALES ASSOCIATE/SEISMIC PROSPECTING OBSERVER HELPER TO MONITOR ADHERENCE OF PATIENT/CAREGIVER PERFORMING DIABETIC FOOT CARE AND MAY PERFORM DIABETIC FOOT CARE PRN. RN/OPTICAL SALES ASSOCIATE/SEISMIC PROSPECTING OBSERVER HELPER TO MONITOR FOR ADHERENCE TO DIABETIC SELF-CARE AND MANAGEMENT INCLUDING MEDICATIONS. [code = DIABETES MONITORING RN/OPTICAL SALES ASSOCIATE/SEISMIC PROSPECTING OBSERVER HELPER TO MONITOR BLOOD SUGAR LOG FOR BLOOD SUGAR READINGS THAT ARE BEING CHECKED BY PATIENT, CAREGIVER NEEDED FOR SIGNS AND SYMPTOMS OF HYPER/HYPOGLYCEMIA. PATIENT THERAPEUTIC BLOOD SUGAR PARAMETERS ARE 70 - 300. REPORT BLOOD SUGARS OUT OF RANGE TO PHYSICIAN. NURSE MAY PERFORM FINGER STICK BLOOD GLUCOSE NEEDED FOR SIGNS AND SYMPTOMS OF HYPO AND HYPERGLYCEMIA. RN/OPTICAL SALES ASSOCIATE/SEISMIC PROSPECTING OBSERVER HELPER TO MONITOR ADHERENCE OF PATIENT/CAREGIVER PERFORMING DIABETIC FOOT CARE AND MAY PERFORM DIABETIC FOOT CARE PRN. RN/OPTICAL SALES ASSOCIATE/SEISMIC PROSPECTING OBSERVER HELPER TO MONITOR FOR ADHERENCE TO DIABETIC SELF-CARE AND MANAGEMENT INCLUDING MEDICATIONS.] Future Scheduled Test HYPOTENSIO N MANAGEMENT; RN TO ASSESS AND TEACH/ SEISMIC PROSPECTING OBSERVER HELPER /OPTICAL SALES ASSOCIATE TO OBSERVE AND TEACH WARNING SIGNS AND SYMPTOMS TO AVOID HOSPITALIZATION. [code = HYPOTENSION MANAGEMENT; RN TO ASSESS AND TEACH/ SEISMIC PROSPECTING OBSERVER HELPER /OPTICAL SALES ASSOCIATE TO OBSERVE AND TEACH WARNING SIGNS AND SYMPTOMS TO AVOID HOSPITALIZATION.] Future Scheduled Test ARRHYTHMIA MANAGEMENT; RN TO ASSESS AND TEACH, SEISMIC PROSPECTING OBSERVER HELPER/OPTICAL SALES ASSOCIATE TO OBSERVE AND TEACH WARNING SIGNS AND SYMPTOMS TO AVOID HOSPITALIZATION. [code = ARRHYTHMIA MANAGEMENT; RN TO ASSESS AND TEACH, SEISMIC PROSPECTING OBSERVER HELPER/OPTICAL SALES ASSOCIATE TO OBSERVE AND TEACH WARNING SIGNS AND SYMPTOMS TO AVOID HOSPITALIZATION.] Future Scheduled Test MEDICATION MANAGEMENT; RN/SEISMIC PROSPECTING OBSERVER HELPER/OPTICAL SALES ASSOCIATE TO REVIEW MEDICATIONS FOR INTERACTIONS, EFFECTIVENESS OF DRUG THERAPY, AND SIGNS/SYMPTOMS OF ADVERSE REACTIONS. MAY INSTRUCT AND REINFORCE MEDICATION TEACHING RELATED TO THE USE OF MEDICATIONS, DOSAGE, FREQUENCY, PURPOSE, SIDE EFFECTS, AND TO REPORT COMPLICATIONS. [code = MEDICATION MANAGEMENT; RN/SEISMIC PROSPECTING OBSERVER HELPER/OPTICAL SALES ASSOCIATE TO REVIEW MEDICATIONS FOR INTERACTIONS, EFFECTIVENESS OF [...] EVAL UATE, OBSERVE / ASSESS, AND MONITOR, CONTENT DIRECTOR TO OBSERVE AND MONITOR, PROVIDE SKILLED THERAPEUTIC INTERVENTION, ACTIVITY, EDUCATION, AND TRAINING TO ADDRESS GEN. WEAKNESS, POOR OVERALL ACTIVITY TOLERANCE, AND FUNCTIONAL LIMITATIONS IMPACTING SAFETY AND INDEPENDENCE. BED MOBILITY (PT/CONTENT DIRECTOR) PT/CONTENT DIRECTOR TO PROVIDE GAIT TRAINING FOR IMPROVED MOBILITY AND /OR TO NORMALIZE GAIT PATTERN THERAPEUTIC EXERCISES AND ESTABLISHING A HOME EXERCISE PROGRAM (PT/CONTENT DIRECTOR) PT/CONTENT DIRECTOR TO PROVIDE STAIR TRAINING PT / CONTENT DIRECTOR TO MONITOR AND EDUCATE ON OXYGEN SATURATION DURING ADLS/IADLS, NOTIFY PHYSICIAN AND/OR THE RN CLINICAL PLANT PULLER FOR PHYSICIAN NOTIFICATION AND IF O2 SATS BELOW PHYSICIAN ORDERED PARAMETERS AFTER 10 MIN OF REST PT / CONTENT DIRECTOR TO OBSERVE FOR EARLY SIGNS AND SYMPTOMS OF DEPRESSION OR DEPRESSION GETTING WORSE AND TO EDUCATE ON HOW TO FIND HELP. PT / CONTENT DIRECTOR MAY EDUCATE ON PAIN MANAGEMENT CLINICALLY INDICATED, INCLUDING NON-PHARMACOLOGICAL PAIN REDUCTION TECHNIQUES PT / CONTENT DIRECTOR TO MONITOR FOR HYPO/HYPERGLYCEMIA AND CONDUCT ROUTINE FOOT INSPECTIONS. RECORD PATIENT REPORTED BLOOD SUGAR LEVELS AND NOTIFY PHYSICIAN AND/OR THE RN CLINICAL PLANT PULLER FOR PHYSICIAN NOTIFICATION IF BLOOD SUGAR LEVELS ARE OUTSIDE ORDERED PARAMETERS. TEACH PATIENT/CAREGIVER ON DAILY FOOT INSPECTIONS PT / CONTENT DIRECTOR TO INSTRUCT PATIENT/CAREGIVER ON RISK FOR HOSPITALIZATION/EMERGENCY ROOM VISITS, TEACH SIGNS AND SYMPTOMS THAT PUT PATIENT AT RISK, WHEN TO NOTIFY NURSE/PHYSICIAN OF COMPLICATIONS/DECLINE, AND WHEN TO CALL 911. PT/CONTENT DIRECTOR TO EDUCATE ON ARTHRITIS SELF-MANAGEMENT PT / CONTENT DIRECTOR TO EDUCATE ON HEART FAILURE SELF-MANAGEMENT PT / CONTENT DIRECTOR TO EDUCATE ON HYPERTENSION SELF-MANAGEMENT PT TO ASSESS / CONTENT DIRECTOR TO MONITOR CARDIO/RESPIRATORY SYSTEM; AND NOTIFY THE PHYSICIAN AND/OR THE RN CLINICAL PLANT PULLER FOR PHYSICIAN NOTIFICATION FOR EARLY SIGNS AND SYMPTOMS OF EXACERBATION OR DETERIORATION. PT / CONTENT DIRECTOR TO EDUCATE ON ATRIAL FIBRILLATION SELF-MANAGEMENT. PT / CONTENT DIRECTOR TO EDUCATE ON PNEUMONIA / ASPIRATION PNEUMONIA SELF-MANAGEMENT. PT/CONTENT DIRECTOR TO IDENTIFY FALL RISK FACTORS; EDUCATE THE PATIENT/CAREGIVER ON WAYS TO REDUCE FALL RISK FACTORS AND ESTABLISH HOME EXERCISE PROGRAM TO MINIMIZE FALL RISK. MAY TEACH THE PATIENT FLOOR RECOVERY WHEN CLINICALLY APPROPRIATE [code = PT TO EVALUATE, OBSERVE / ASSESS, AND MONITOR, CONTENT DIRECTOR TO OBSERVE AND MONITOR, PROVIDE SKILLED THERAPEUTIC INTERVENTION, ACTIVITY, EDUCATION, AND TRAINING TO ADDRESS GEN. WEAKNESS, POOR OVERALL ACTIVITY TOLERANCE, AND FUNCTIONAL LIMITATIONS IMPACTING SAFETY AND INDEPENDENCE. BED MOBILITY (PT/CONTENT DIRECTOR) PT/CONTENT DIRECTOR TO PROVIDE GAIT TRAINING FOR IMPROVED MOBILITY AND /OR TO NORMALIZE GAIT PATTERN THERAPEUTIC EXERCISES AND ESTABLISHING A HOME EXERCISE PROGRAM (PT/CONTENT DIRECTOR) PT/CONTENT DIRECTOR TO PROVIDE STAIR TRAINING PT / CONTENT DIRECTOR TO MONITOR AND EDUCATE ON OXYGEN SATURATION DURING ADLS/IADLS, NOTIFY PHYSICIAN AND/OR THE RN CLINICAL PLANT PULLER FOR PHYSICIAN NOTIFICATION AND IF O2 SATS BELOW PHYSICIAN ORDERED PARAMETERS AFTER 10 MIN OF REST PT / CONTENT DIRECTOR TO OBSERVE FOR EARLY SIGNS AND SYMPTOMS OF DEPRESSION OR DEPRESSION GETTING WORSE AND TO EDUCATE ON HOW TO FIND HELP. PT / CONTENT DIRECTOR MAY EDUCATE ON PAIN MANAGEMENT CLINICALLY INDICATED, INCLUDING NON-PHARMACOLOGICAL PAIN REDUCTION TECHNIQUES PT / CONTENT DIRECTOR TO MONITOR FOR HYPO/HYPERGLYCEMIA AND CONDUCT ROUTINE FOOT INSPECTIONS. RECORD PATIENT REPORTED BLOOD SUGAR LEVELS AND NOTIFY PHYSICIAN AND/OR THE RN CLINICAL PLANT PULLER FOR PHYSICIAN NOTIFICATION IF BLOOD SUGAR LEVELS ARE OUTSIDE ORDERED PARAMETERS. TEACH PATIENT/CAREGIVER ON DAILY FOOT INSPECTIONS PT / CONTENT DIRECTOR TO INSTRUCT PATIENT/CAREGIVER ON RISK FOR HOSPITALIZATION/EMERGENCY ROOM VISITS, TEACH SIGNS AND SYMPTOMS THAT PUT PATIENT AT RISK, WHEN TO NOTIFY NURSE/PHYSICIAN OF COMPLICATIONS/DECLINE, AND WHEN TO CALL 911. PT/CONTENT DIRECTOR TO EDUCATE ON ARTHRITIS SELF-MANAGEMENT PT / CONTENT DIRECTOR TO EDUCATE ON HEART FAILURE SELF-MANAGEMENT PT / CONTENT DIRECTOR TO EDUCATE ON HYPERTENSION SELF-MANAGEMENT PT TO ASSESS / CONTENT DIRECTOR TO MONITOR CARDIO/RESPIRATORY SYSTEM; AND NOTIFY THE PHYSICIAN AND/OR THE RN CLINICAL PLANT PULLER FOR PHYSICIAN NOTIFICATION FOR EARLY SIGNS AND SYMPTOMS OF EXACERBATION OR DETERIORATION. PT / CONTENT DIRECTOR TO EDUCATE ON ATRIAL FIBRILLATION SELF-MANAGEMENT. PT / CONTENT DIRECTOR TO EDUCATE ON PNEUMONIA / ASPIRATION PNEUMONIA SELF-MANAGEMENT. PT/CONTENT DIRECTOR TO IDENTIFY FALL RISK FACTORS; EDUCATE THE PATIENT/CAREGIVER ON WAYS TO REDUCE FALL RISK FACTORS AND ESTABLISH HOME EXERCISE PROGRAM TO MINIMIZE FALL RISK. MAY TEACH THE PATIENT FLOOR RECOVERY WHEN CLINICALLY APPROPRIATE] Future Scheduled Test AGENCY MAY PERFORM A RESUMPTION OF CARE VISIT FOLLOWING ANY HOSPITAL ADMISSION. OT TO EVALUATE, OBSERVE / ASSESS, AND MONITOR, SALES SECRETARY TO OBSERVE AND MONITOR, PROVIDE SKILLED THERAPEUTIC INTERVENTION, ACTIVITY, EDUCATION, AND TRAINING TO ADDRESS SAFETY AND INDEPENDENCE OF ADLS AND FUNCTIONAL TRANSFERS IN HOME ENVIRONMENT. ACTIVITIES OF DAILY LIVING (OT/MARIANNE) THERAPEUTIC EXERCISE (OT/SALES SECRETARY) ENERGY CONSERVATION/ACTIVITY DEMAND (OT/SALES SECRETARY) OT/SALES SECRETARY TO MONITOR AND EDUCATE ON OXYGEN SATURATION DURING ADLS/IADLS, NOTIFY PHYSICIAN AND/OR THE RN CLINICAL PLANT PULLER FOR PHYSICIAN NOTIFICATION AND IF O2 SATS BELOW 90% AFTER 10 MIN OF REST. OT / SALES SECRETARY TO IDENTIFY FALL RISK FACTORS; EDUCATE THE PATIENT/CAREGIVER ON WAYS TO REDUCE FALL RISK FACTORS AND ESTABLISH HOME EXERCISE PROGRAM TO MINIMIZE FALL RISK. MAY TEACH THE PATIENT FLOOR RECOVERY WHEN CLINICALLY APPROPRIATE. OT/SALES SECRETARY TO EDUCATE ON HYPERTENSION SELF-MANAGEMENT OT/MARIANNE TO EDUCATE ON ATRIAL FIBRILLATION SELF-MANAGEMENT. [code = AGENCY MAY PERFORM A RESUMPTION OF CARE VISIT FOLLOWING ANY HOSPITAL ADMISSION. OT TO EVALUATE, OBSERVE / ASSESS, AND MONITOR, SALES SECRETARY TO OBSERVE AND MONITOR, PROVIDE SKILLED THERAPEUTIC INTERVENTION, ACTIVITY, EDUCATION, AND TRAINING TO ADDRESS SAFETY AND INDEPENDENCE OF ADLS AND FUNCTIONAL TRANSFERS IN HOME ENVIRONMENT. ACTIVITIES OF DAILY LIVING (OT/MARIANNE) THERAPEUTIC EXERCISE (OT/SALES SECRETARY) ENERGY CONSERVATION/ACTIVITY DEMAND (OT/MARIANNE) OT/SALES SECRETARY TO MONITOR AND EDUCATE ON OXYGEN SATURATION DURING ADLS/IADLS, NOTIFY PHYSICIAN AND/OR THE RN CLINICAL PLANT PULLER FOR PHYSICIAN NOTIFICATION AND IF O2 SATS BELOW 90% AFTER 10 MIN OF REST. OT / MARIANNE TO IDENTIFY FALL RISK FACTORS; EDUCATE THE PATIENT/CAREGIVER ON WAYS TO REDUCE FALL RISK FACTORS AND ESTABLISH HOME EXERCISE PROGRAM TO MINIMIZE FALL RISK. MAY TEACH THE PATIENT FLOOR RECOVERY WHEN CLINICALLY APPROPRIATE. OT/SALES SECRETARY TO EDUCATE ON HYPERTENSION SELF-MANAGEMENT OT/MARIANNE TO [...] OF SKIN INTEGRITY ISSUES FROM SBA TO SD WITHIN 2 WKS. PT STG: PATIENT WILL [...] BY IMPROVED MACK, AMB. DISTANCE, AND ADEQUATE IGNA USING A ROLLATOR, MOD INDEP, IN ORDER [...] TO SAFELY NEGOTIATE STAIRS FROM SBA TO SD WITH 2 STEPS W/O HANDRAIL VIA FRONT [...] Date/Time Encounter Type Admission Type Attending [facility] Care Department Encounter ID Discharge Date Discharge Status Discharge Condition Discharge Reason Percent Goals Met 2025-02-07 00:00:00 2025-04-07 00:00:00 Outpatient NEW ADMISSION [facility] [id number]
--- OUTSIDE RECORDS SUMMARY | 2025-04-06 18:00 | XMS_ITS | Clinical Summary ---
Author Organization Unknown Care Team Providers Care Fast Food Cashier Name Role Phone DIGNA ARIEL, ESTRELLA Unavailable Unava dinora STOKES RN, FRANKIE Unavailable Unavailabl e KARI PT, DIDI Unavailable Unavailable NAT SALES DEVELOPMENT DIRECTOR, GAUDENCIO Unavailable Unavailabl e RADHA OT, ROLANDO Unavailable Unavailable JOANNE STEVEN, HATTIE Unavailable Unavailable Payers Payer Name Policy Type Policy Number Effective Date Expira tion Date MEDICARE.[facility] [id number] Problems Condition Name Condition Details Condition Category Status Onset Date Resolution Date Last Treatment Date Treating Clinician Comments 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 02-07 [...] OF PNEUMONIA (RECURRENT) Active 02-07 00:00: 00 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 (CURRENT) USE OF SYSTEMIC STEROIDS Active [...] 80 mg tablet 02-07 00:00: 00 Yes [id number] CHOLESTEROL 1 tablet DAILY 1 tablet DAILY (route: oral) Med Classific ation: Cardiovas cular Therapy Agents digoxin 125 mcg (0.125 mg) tablet 02-07 00:00: 00 02-21 23:59 :00 No [id number] HEART RHYTHM 1 tablet DAILY 1 tablet DAILY (route: oral) Med Classific ation: Cardiovas cular Therapy Agents escitalopra m 10 mg tablet 02-07 00:00: 00 Yes [id number] MOOD 1 tablet DAILY 1 tablet DAILY (route: oral) Med Classific ation: Central Nervous System Agents ezetimibe 10 mg tablet 02-07 00:00: 00 Yes [id number] CHOLESTEROL 1 tablet DAILY 1 tablet DAILY (route: oral) Med Classific ation: Cardiovas cular Therapy Agents metoprolol succinate ER 25 mg tablet,exte nded release 24 hr 02-07 00:00: 00 02-21 23:59 :00 No [id number] BLOOD PRESSURE 0.5 tablet DAILY 0.5 tablet DAILY (route: oral) Med Classific ation: Cardiovas cular Therapy Agents pantoprazol e 40 mg tablet,joão yed release 02-07 00:00: 00 02-21 23:59 :00 No [id number] STOMACH ACID 1 tablet DAILY 1 tablet DAILY (route: oral) Med Classific ation: Gastroint estinal Therapy Agents prednisone 5 mg tablet 02-07 00:00: 00 Yes [id number] ADRENAL INSUFFICIEN CY 1 tablet DAILY 1 tablet DAILY (route: oral) Med Classific ation: Endocrine spironolact one 25 mg tablet 02-07 00:00: 00 Yes [id number] FLUID RETENTION 0.5 tablet DAILY 0.5 tablet DAILY (route: oral) Med Classific ation: Cardiovas cular Therapy Agents tamsulosin 0.4 mg capsule 02-07 00:00: 00 02-21 23:59 :00 No [id number] URINARY HEALTH 1 capsule DAILY 1 capsule DAILY (route: oral) Med Classific ation: Genitouri nary Therapy acetaminoph en 325 mg tablet 2024-05 00:00: 00 Yes [id number] PAIN 2 tablet 2 TIMES DAILY 2 tablet 2 TIMES DAILY (route: oral) Med Classific ation: Analgesic , Anti-infl ammatory or Antipyret ic aspirin 81 mg tablet 2024-05 00:00: 00 Yes [id number] ANTICOAGULA NT 1 tablet DAILY 1 tablet DAILY (route: oral) Med Classific ation: Hematolog ical Agents ipratropium 0.5 mg-albutero l 3 mg (2.5 mg base)/3 mL nebulizatio n soln 2024-05 00:00: 00 Yes [id number] COPD 3 mL EVERY 6 HOURS 3 mL EVERY 6 HOURS (route: inhalation ) Med Classific ation: Respirato ry Therapy Agents Lanoxin 62.5 mcg (0.0625 mg) tablet 2024-05 00:00: 00 Yes [id number] CHF 1 tablet DAILY 1 tablet DAILY (route: oral) Med Classific ation: Cardiovas cular Therapy Agents Lasix 20 mg tablet 2024-05 00:00: 00 Yes [id number] CHF 1 tablet DAILY 1 tablet DAILY (route: oral) Med Classific ation: Cardiovas cular Therapy Agents Toprol XL 25 mg tablet,exte nded release 2024-05 00:00: 00 Yes [id number] BP 25 mg DAILY 25 mg DAILY [...] SYSTEM MANAGEMENT; RN TO ASSESS AND TEACH, CONTRACTS ANALYST/CAR ICER TO OBSERVE AND TEACH RELATED TO ALTERED RESPIRATORY STATUS TO MINIMIZE COMPLICATIONS AND REDUCE HOSPITALIZATION. [code = SN 1WK9 PT 1WK1 OT EFFECTIVE 02/10/2025K1 RESPIRATORY SYSTEM MANAGEMENT; RN TO ASSESS AND TEACH, CONTRACTS ANALYST/CAR ICER TO OBSERVE AND TEACH RELATED TO ALTERED RESPIRATORY STATUS TO MINIMIZE COMPLICATIONS AND REDUCE HOSPITALIZATION.] Future Scheduled Test TRACHEOSTO MY CARE MANAGEMENT; RN/CONTRACTS ANALYST/CAR ICER TO INSTRUCT PATIENT/CAREGIVER ON CARE AND MANAGEMENT OF TRACHEOSTOMY. RN/ CONTRACTS ANALYST/CAR ICER TO PROVIDE SKILLED TEACHING ON TRACH COLLAR SUCTIONING PRN WITH 14 FR SUCTION CATHETER PER PATIENT TRACH CARE WITH INNER CANNULA: REMOVE INNER CANNULA, CLEANSE WITH NORMAL SALINE AND OR STERILE WATER AND REINSERT NON-DISPOSABLE CANNULA SIZE OF INNER CANNULA 5 BROOKS [code = TRACHEOSTOMY CARE MANAGEMENT; RN/CONTRACTS ANALYST/CAR ICER TO INSTRUCT PATIENT/CAREGIVER ON CARE AND MANAGEMENT OF TRACHEOSTOMY. RN/ CONTRACTS ANALYST/CAR ICER TO PROVIDE SKILLED TEACHING ON TRACH COLLAR SUCTIONING PRN WITH 14 FR SUCTION CATHETER PER PATIENT TRACH CARE WITH INNER CANNULA: REMOVE INNER CANNULA, CLEANSE WITH NORMAL SALINE AND OR STERILE WATER AND REINSERT NON-DISPOSABLE CANNULA SIZE OF INNER CANNULA 5 BROOKS] Future Scheduled Test FALL REDUC TION MANAGEMENT; RN TO ASSESS AND OBSERVE, CONTRACTS ANALYST/CAR ICER TO OBSERVE FALL RISK FACTORS AND EDUCATE PATIENT/CAREGIVER ON STRATEGIES TO MINIMIZE THE RISK OF FALLING. [code = FALL REDUCTION MANAGEMENT; RN TO ASSESS AND OBSERVE, CONTRACTS ANALYST/CAR ICER TO OBSERVE FALL RISK FACTORS AND EDUCATE PATIENT/CAREGIVER ON STRATEGIES TO MINIMIZE THE RISK OF FALLING.] Future Scheduled Test ANEMIA MAN AGEMENT; RN TO ASSESS AND TEACH, CAR ICER/CONTRACTS ANALYST TO OBSERVE AND TEACH AND PROVIDE EDUCATION ON ANEMIA. [code = ANEMIA MANAGEMENT; RN TO ASSESS AND TEACH, CAR ICER/CONTRACTS ANALYST TO OBSERVE AND TEACH AND PROVIDE EDUCATION ON ANEMIA.] Future Scheduled Test RN TO OBSE RVE, ASSESS, EVALUATE, AND DEVELOP AN INDIVIDUALIZED PLAN OF CARE. AGENCY MAY ACCEPT ORDERS FROM CONSULTING PHYSICIANS RN TO OBSERVE AND ASSESS, CONTRACTS ANALYST/CAR ICER TO OBSERVE FOR RISK FOR FALLS AND INSTRUCT IN FALL PREVENTION, HOME SAFETY, MEDICATION MANAGEMENT, INFECTION PREVENTION, AND NUTRITION MANAGEMENT. RN/CONTRACTS ANALYST/CAR ICER NURSE MAY PERFORM O2 SATURATION LEVEL ON ADMISSION AND PRN FOR RN TO ASSESS/CONTRACTS ANALYST TO OBSERVE PATIENT, WITH NOTIFICATION TO THE PHYSICIAN IF SATURATION IS 90% IN THE ABSENCE OF MORE SPECIFIC PARAMETERS FROM THE PHYSICIAN. AGENCY MAY PERFORM A RESUMPTION OF CARE VISIT FOLLOWING ANY HOSPITAL ADMISSION. RN/CONTRACTS ANALYST/CAR ICER TO MONITOR CO-MORBID CONDITIONS LISTED ON THE PLAN OF CARE AND ANY NEW CONDITIONS THAT PRESENT THEMSELVES DURING THIS EPISODE TO IDENTIFY CHANGES AND INTERVENE TO MINIMIZE COMPLICATIONS. [code = RN TO OBSERVE, ASSESS, EVALUATE, AND DEVELOP AN INDIVIDUALIZED PLAN OF CARE. AGENCY MAY ACCEPT ORDERS FROM CONSULTING PHYSICIANS RN TO OBSERVE AND ASSESS, CONTRACTS ANALYST/CAR ICER TO OBSERVE FOR RISK FOR FALLS AND INSTRUCT IN FALL PREVENTION, HOME SAFETY, MEDICATION MANAGEMENT, INFECTION PREVENTION, AND NUTRITION MANAGEMENT. RN/CONTRACTS ANALYST/CAR ICER NURSE MAY PERFORM O2 SATURATION LEVEL ON ADMISSION AND PRN FOR RN TO ASSESS/CONTRACTS ANALYST TO OBSERVE PATIENT, WITH NOTIFICATION TO THE PHYSICIAN IF SATURATION IS 90% IN THE ABSENCE OF MORE SPECIFIC PARAMETERS FROM THE PHYSICIAN. AGENCY MAY PERFORM A RESUMPTION OF CARE VISIT FOLLOWING ANY HOSPITAL ADMISSION. RN/CONTRACTS ANALYST/CAR ICER TO MONITOR CO-MORBID CONDITIONS LISTED ON THE PLAN OF CARE AND ANY NEW CONDITIONS THAT PRESENT THEMSELVES DURING THIS EPISODE TO IDENTIFY CHANGES AND INTERVENE TO MINIMIZE COMPLICATIONS.] Future Scheduled Test PAIN MANAG EMENT; RN TO ASSESS AND TEACH, CAR ICER/CONTRACTS ANALYST TO OBSERVE AND TEACH AND PROVIDE EDUCATION ON PAIN MANAGEMENT TECHNIQUES. [code = PAIN MANAGEMENT; RN TO ASSESS AND TEACH, CAR ICER/CONTRACTS ANALYST TO OBSERVE AND TEACH AND PROVIDE EDUCATION ON PAIN MANAGEMENT TECHNIQUES.] Future Scheduled Test RISK FOR H OSPITALIZATION; RN TO ASSESS/TEACH, CAR ICER/CONTRACTS ANALYST TO OBSERVE/TEACH PATIENT/CAREGIVER ON RISK FOR HOSPITALIZATION/EMERGENCY ROOM VISITS, TEACH SIGNS AND SYMPTOMS THAT PUT PATIENT AT RISK, WHEN TO NOTIFY NURSE/PHYSICIAN OF COMPLICATIONS/DECLINE, AND WHEN TO CALL 911. [code = RISK FOR HOSPITALIZATION; RN TO ASSESS/TEACH, CAR ICER/CONTRACTS ANALYST TO OBSERVE/TEACH PATIENT/CAREGIVER ON RISK FOR HOSPITALIZATION/EMERGENCY ROOM VISITS, TEACH SIGNS AND SYMPTOMS THAT PUT PATIENT AT RISK, WHEN TO NOTIFY NURSE/PHYSICIAN OF COMPLICATIONS/DECLINE, AND WHEN TO CALL 911.] Future Scheduled Test CARDIOVASC ULAR SYSTEM; RN TO ASSESS/TEACH, CONTRACTS ANALYST/CAR ICER TO OBSERVE/TEACH RELATED TO ALTERED CARDIOVASCULAR STATUS TO MINIMIZE COMPLICATIONS AND REDUCE HOSPITALIZATION. [code = CARDIOVASCULAR SYSTEM; RN TO ASSESS/TEACH, CONTRACTS ANALYST/CAR ICER TO OBSERVE/TEACH RELATED TO ALTERED CARDIOVASCULAR STATUS TO MINIMIZE COMPLICATIONS AND REDUCE HOSPITALIZATION.] Future Scheduled Test HYPERTENSI ON MANAGEMENT; RN TO ASSESS AND TEACH, CONTRACTS ANALYST/CAR ICER TO OBSERVE AND TEACH WARNING SIGNS AND SYMPTOMS TO AVOID HOSPITALIZATION. [code = HYPERTENSION MANAGEMENT; RN TO ASSESS AND TEACH, CONTRACTS ANALYST/CAR ICER TO OBSERVE AND TEACH WARNING SIGNS AND SYMPTOMS TO AVOID HOSPITALIZATION.] Future Scheduled Test HEART FAIL URE MONITORING RN/CAR ICER/CONTRACTS ANALYST TO MONITOR PATIENT FOR SIGNS AND SYMPTOMS OF HEART FAILURE EXACERBATION, MONITOR FOR ADHERENCE WITH MEDICATION AND HEART FAILURE MANAGEMENT REGIMEN. [code = HEART FAILURE MONITORING RN/CAR ICER/CONTRACTS ANALYST TO MONITOR PATIENT FOR SIGNS AND SYMPTOMS OF HEART FAILURE EXACERBATION, MONITOR FOR ADHERENCE WITH MEDICATION AND HEART FAILURE MANAGEMENT REGIMEN.] Future Scheduled Test DIABETES M ONITORING RN/CAR ICER/CONTRACTS ANALYST TO MONITOR BLOOD SUGAR LOG FOR BLOOD SUGAR READINGS THAT ARE BEING CHECKED BY PATIENT, CAREGIVER NEEDED FOR SIGNS AND SYMPTOMS OF HYPER/HYPOGLYCEMIA. PATIENT THERAPEUTIC BLOOD SUGAR PARAMETERS ARE 70 - 300. REPORT BLOOD SUGARS OUT OF RANGE TO PHYSICIAN. NURSE MAY PERFORM FINGER STICK BLOOD GLUCOSE NEEDED FOR SIGNS AND SYMPTOMS OF HYPO AND HYPERGLYCEMIA. RN/CAR ICER/CONTRACTS ANALYST TO MONITOR ADHERENCE OF PATIENT/CAREGIVER PERFORMING DIABETIC FOOT CARE AND MAY PERFORM DIABETIC FOOT CARE PRN. RN/CAR ICER/CONTRACTS ANALYST TO MONITOR FOR ADHERENCE TO DIABETIC SELF-CARE AND MANAGEMENT INCLUDING MEDICATIONS. [code = DIABETES MONITORING RN/CAR ICER/CONTRACTS ANALYST TO MONITOR BLOOD SUGAR LOG FOR BLOOD SUGAR READINGS THAT ARE BEING CHECKED BY PATIENT, CAREGIVER NEEDED FOR SIGNS AND SYMPTOMS OF HYPER/HYPOGLYCEMIA. PATIENT THERAPEUTIC BLOOD SUGAR PARAMETERS ARE 70 - 300. REPORT BLOOD SUGARS OUT OF RANGE TO PHYSICIAN. NURSE MAY PERFORM FINGER STICK BLOOD GLUCOSE NEEDED FOR SIGNS AND SYMPTOMS OF HYPO AND HYPERGLYCEMIA. RN/CAR ICER/CONTRACTS ANALYST TO MONITOR ADHERENCE OF PATIENT/CAREGIVER PERFORMING DIABETIC FOOT CARE AND MAY PERFORM DIABETIC FOOT CARE PRN. RN/CAR ICER/CONTRACTS ANALYST TO MONITOR FOR ADHERENCE TO DIABETIC SELF-CARE AND MANAGEMENT INCLUDING MEDICATIONS.] Future Scheduled Test HYPOTENSIO N MANAGEMENT; RN TO ASSESS AND TEACH/ CONTRACTS ANALYST /CAR ICER TO OBSERVE AND TEACH WARNING SIGNS AND SYMPTOMS TO AVOID HOSPITALIZATION. [code = HYPOTENSION MANAGEMENT; RN TO ASSESS AND TEACH/ CONTRACTS ANALYST /CAR ICER TO OBSERVE AND TEACH WARNING SIGNS AND SYMPTOMS TO AVOID HOSPITALIZATION.] Future Scheduled Test ARRHYTHMIA MANAGEMENT; RN TO ASSESS AND TEACH, CONTRACTS ANALYST/CAR ICER TO OBSERVE AND TEACH WARNING SIGNS AND SYMPTOMS TO AVOID HOSPITALIZATION. [code = ARRHYTHMIA MANAGEMENT; RN TO ASSESS AND TEACH, CONTRACTS ANALYST/CAR ICER TO OBSERVE AND TEACH WARNING SIGNS AND SYMPTOMS TO AVOID HOSPITALIZATION.] Future Scheduled Test MEDICATION MANAGEMENT; RN/CONTRACTS ANALYST/CAR ICER TO REVIEW MEDICATIONS FOR INTERACTIONS, EFFECTIVENESS OF DRUG THERAPY, AND SIGNS/SYMPTOMS OF ADVERSE REACTIONS. MAY INSTRUCT AND REINFORCE MEDICATION TEACHING RELATED TO THE USE OF MEDICATIONS, DOSAGE, FREQUENCY, PURPOSE, SIDE EFFECTS, AND TO REPORT COMPLICATIONS. [code = MEDICATION MANAGEMENT; RN/CONTRACTS ANALYST/CAR ICER TO REVIEW MEDICATIONS FOR INTERACTIONS, EFFECTIVENESS OF [...] EVAL UATE, OBSERVE / ASSESS, AND MONITOR, SALES DEVELOPMENT DIRECTOR TO OBSERVE AND MONITOR, PROVIDE SKILLED THERAPEUTIC INTERVENTION, ACTIVITY, EDUCATION, AND TRAINING TO ADDRESS GEN. WEAKNESS, POOR OVERALL ACTIVITY TOLERANCE, AND FUNCTIONAL LIMITATIONS IMPACTING SAFETY AND INDEPENDENCE. BED MOBILITY (PT/SALES DEVELOPMENT DIRECTOR) PT/SALES DEVELOPMENT DIRECTOR TO PROVIDE GAIT TRAINING FOR IMPROVED MOBILITY AND /OR TO NORMALIZE GAIT PATTERN THERAPEUTIC EXERCISES AND ESTABLISHING A HOME EXERCISE PROGRAM (PT/SALES DEVELOPMENT DIRECTOR) PT/SALES DEVELOPMENT DIRECTOR TO PROVIDE STAIR TRAINING PT / SALES DEVELOPMENT DIRECTOR TO MONITOR AND EDUCATE ON OXYGEN SATURATION DURING ADLS/IADLS, NOTIFY PHYSICIAN AND/OR THE RN CLINICAL ZINC SKIMMER FOR PHYSICIAN NOTIFICATION AND IF O2 SATS BELOW PHYSICIAN ORDERED PARAMETERS AFTER 10 MIN OF REST PT / SALES DEVELOPMENT DIRECTOR TO OBSERVE FOR EARLY SIGNS AND SYMPTOMS OF DEPRESSION OR DEPRESSION GETTING WORSE AND TO EDUCATE ON HOW TO FIND HELP. PT / SALES DEVELOPMENT DIRECTOR MAY EDUCATE ON PAIN MANAGEMENT CLINICALLY INDICATED, INCLUDING NON-PHARMACOLOGICAL PAIN REDUCTION TECHNIQUES PT / SALES DEVELOPMENT DIRECTOR TO MONITOR FOR HYPO/HYPERGLYCEMIA AND CONDUCT ROUTINE FOOT INSPECTIONS. RECORD PATIENT REPORTED BLOOD SUGAR LEVELS AND NOTIFY PHYSICIAN AND/OR THE RN CLINICAL ZINC SKIMMER FOR PHYSICIAN NOTIFICATION IF BLOOD SUGAR LEVELS ARE OUTSIDE ORDERED PARAMETERS. TEACH PATIENT/CAREGIVER ON DAILY FOOT INSPECTIONS PT / SALES DEVELOPMENT DIRECTOR TO INSTRUCT PATIENT/CAREGIVER ON RISK FOR HOSPITALIZATION/EMERGENCY ROOM VISITS, TEACH SIGNS AND SYMPTOMS THAT PUT PATIENT AT RISK, WHEN TO NOTIFY NURSE/PHYSICIAN OF COMPLICATIONS/DECLINE, AND WHEN TO CALL 911. PT/SALES DEVELOPMENT DIRECTOR TO EDUCATE ON ARTHRITIS SELF-MANAGEMENT PT / SALES DEVELOPMENT DIRECTOR TO EDUCATE ON HEART FAILURE SELF-MANAGEMENT PT / SALES DEVELOPMENT DIRECTOR TO EDUCATE ON HYPERTENSION SELF-MANAGEMENT PT TO ASSESS / SALES DEVELOPMENT DIRECTOR TO MONITOR CARDIO/RESPIRATORY SYSTEM; AND NOTIFY THE PHYSICIAN AND/OR THE RN CLINICAL ZINC SKIMMER FOR PHYSICIAN NOTIFICATION FOR EARLY SIGNS AND SYMPTOMS OF EXACERBATION OR DETERIORATION. PT / SALES DEVELOPMENT DIRECTOR TO EDUCATE ON ATRIAL FIBRILLATION SELF-MANAGEMENT. PT / SALES DEVELOPMENT DIRECTOR TO EDUCATE ON PNEUMONIA / ASPIRATION PNEUMONIA SELF-MANAGEMENT. PT/SALES DEVELOPMENT DIRECTOR TO IDENTIFY FALL RISK FACTORS; EDUCATE THE PATIENT/CAREGIVER ON WAYS TO REDUCE FALL RISK FACTORS AND ESTABLISH HOME EXERCISE PROGRAM TO MINIMIZE FALL RISK. MAY TEACH THE PATIENT FLOOR RECOVERY WHEN CLINICALLY APPROPRIATE [code = PT TO EVALUATE, OBSERVE / ASSESS, AND MONITOR, SALES DEVELOPMENT DIRECTOR TO OBSERVE AND MONITOR, PROVIDE SKILLED THERAPEUTIC INTERVENTION, ACTIVITY, EDUCATION, AND TRAINING TO ADDRESS GEN. WEAKNESS, POOR OVERALL ACTIVITY TOLERANCE, AND FUNCTIONAL LIMITATIONS IMPACTING SAFETY AND INDEPENDENCE. BED MOBILITY (PT/SALES DEVELOPMENT DIRECTOR) PT/SALES DEVELOPMENT DIRECTOR TO PROVIDE GAIT TRAINING FOR IMPROVED MOBILITY AND /OR TO NORMALIZE GAIT PATTERN THERAPEUTIC EXERCISES AND ESTABLISHING A HOME EXERCISE PROGRAM (PT/SALES DEVELOPMENT DIRECTOR) PT/SALES DEVELOPMENT DIRECTOR TO PROVIDE STAIR TRAINING PT / SALES DEVELOPMENT DIRECTOR TO MONITOR AND EDUCATE ON OXYGEN SATURATION DURING ADLS/IADLS, NOTIFY PHYSICIAN AND/OR THE RN CLINICAL ZINC SKIMMER FOR PHYSICIAN NOTIFICATION AND IF O2 SATS BELOW PHYSICIAN ORDERED PARAMETERS AFTER 10 MIN OF REST PT / SALES DEVELOPMENT DIRECTOR TO OBSERVE FOR EARLY SIGNS AND SYMPTOMS OF DEPRESSION OR DEPRESSION GETTING WORSE AND TO EDUCATE ON HOW TO FIND HELP. PT / SALES DEVELOPMENT DIRECTOR MAY EDUCATE ON PAIN MANAGEMENT CLINICALLY INDICATED, INCLUDING NON-PHARMACOLOGICAL PAIN REDUCTION TECHNIQUES PT / SALES DEVELOPMENT DIRECTOR TO MONITOR FOR HYPO/HYPERGLYCEMIA AND CONDUCT ROUTINE FOOT INSPECTIONS. RECORD PATIENT REPORTED BLOOD SUGAR LEVELS AND NOTIFY PHYSICIAN AND/OR THE RN CLINICAL ZINC SKIMMER FOR PHYSICIAN NOTIFICATION IF BLOOD SUGAR LEVELS ARE OUTSIDE ORDERED PARAMETERS. TEACH PATIENT/CAREGIVER ON DAILY FOOT INSPECTIONS PT / SALES DEVELOPMENT DIRECTOR TO INSTRUCT PATIENT/CAREGIVER ON RISK FOR HOSPITALIZATION/EMERGENCY ROOM VISITS, TEACH SIGNS AND SYMPTOMS THAT PUT PATIENT AT RISK, WHEN TO NOTIFY NURSE/PHYSICIAN OF COMPLICATIONS/DECLINE, AND WHEN TO CALL 911. PT/SALES DEVELOPMENT DIRECTOR TO EDUCATE ON ARTHRITIS SELF-MANAGEMENT PT / SALES DEVELOPMENT DIRECTOR TO EDUCATE ON HEART FAILURE SELF-MANAGEMENT PT / SALES DEVELOPMENT DIRECTOR TO EDUCATE ON HYPERTENSION SELF-MANAGEMENT PT TO ASSESS / SALES DEVELOPMENT DIRECTOR TO MONITOR CARDIO/RESPIRATORY SYSTEM; AND NOTIFY THE PHYSICIAN AND/OR THE RN CLINICAL ZINC SKIMMER FOR PHYSICIAN NOTIFICATION FOR EARLY SIGNS AND SYMPTOMS OF EXACERBATION OR DETERIORATION. PT / SALES DEVELOPMENT DIRECTOR TO EDUCATE ON ATRIAL FIBRILLATION SELF-MANAGEMENT. PT / SALES DEVELOPMENT DIRECTOR TO EDUCATE ON PNEUMONIA / ASPIRATION PNEUMONIA SELF-MANAGEMENT. PT/SALES DEVELOPMENT DIRECTOR TO IDENTIFY FALL RISK FACTORS; EDUCATE THE PATIENT/CAREGIVER ON WAYS TO REDUCE FALL RISK FACTORS AND ESTABLISH HOME EXERCISE PROGRAM TO MINIMIZE FALL RISK. MAY TEACH THE PATIENT FLOOR RECOVERY WHEN CLINICALLY APPROPRIATE] Future Scheduled Test AGENCY MAY PERFORM A RESUMPTION OF CARE VISIT FOLLOWING ANY HOSPITAL ADMISSION. OT TO EVALUATE, OBSERVE / ASSESS, AND MONITOR, SOCIAL STUDIES TEACHER TO OBSERVE AND MONITOR, PROVIDE SKILLED THERAPEUTIC INTERVENTION, ACTIVITY, EDUCATION, AND TRAINING TO ADDRESS SAFETY AND INDEPENDENCE OF ADLS AND FUNCTIONAL TRANSFERS IN HOME ENVIRONMENT. ACTIVITIES OF DAILY LIVING (OT/MARIANNE) THERAPEUTIC EXERCISE (OT/SOCIAL STUDIES TEACHER) ENERGY CONSERVATION/ACTIVITY DEMAND (OT/SOCIAL STUDIES TEACHER) OT/SOCIAL STUDIES TEACHER TO MONITOR AND EDUCATE ON OXYGEN SATURATION DURING ADLS/IADLS, NOTIFY PHYSICIAN AND/OR THE RN CLINICAL ZINC SKIMMER FOR PHYSICIAN NOTIFICATION AND IF O2 SATS BELOW 90% AFTER 10 MIN OF REST. OT / SOCIAL STUDIES TEACHER TO IDENTIFY FALL RISK FACTORS; EDUCATE THE PATIENT/CAREGIVER ON WAYS TO REDUCE FALL RISK FACTORS AND ESTABLISH HOME EXERCISE PROGRAM TO MINIMIZE FALL RISK. MAY TEACH THE PATIENT FLOOR RECOVERY WHEN CLINICALLY APPROPRIATE. OT/SOCIAL STUDIES TEACHER TO EDUCATE ON HYPERTENSION SELF-MANAGEMENT OT/MARIANNE TO EDUCATE ON ATRIAL FIBRILLATION SELF-MANAGEMENT. [code = AGENCY MAY PERFORM A RESUMPTION OF CARE VISIT FOLLOWING ANY HOSPITAL ADMISSION. OT TO EVALUATE, OBSERVE / ASSESS, AND MONITOR, SOCIAL STUDIES TEACHER TO OBSERVE AND MONITOR, PROVIDE SKILLED THERAPEUTIC INTERVENTION, ACTIVITY, EDUCATION, AND TRAINING TO ADDRESS SAFETY AND INDEPENDENCE OF ADLS AND FUNCTIONAL TRANSFERS IN HOME ENVIRONMENT. ACTIVITIES OF DAILY LIVING (OT/MARIANNE) THERAPEUTIC EXERCISE (OT/SOCIAL STUDIES TEACHER) ENERGY CONSERVATION/ACTIVITY DEMAND (OT/MARIANNE) OT/SOCIAL STUDIES TEACHER TO MONITOR AND EDUCATE ON OXYGEN SATURATION DURING ADLS/IADLS, NOTIFY PHYSICIAN AND/OR THE RN CLINICAL ZINC SKIMMER FOR PHYSICIAN NOTIFICATION AND IF O2 SATS BELOW 90% AFTER 10 MIN OF REST. OT / MARIANNE TO IDENTIFY FALL RISK FACTORS; EDUCATE THE PATIENT/CAREGIVER ON WAYS TO REDUCE FALL RISK FACTORS AND ESTABLISH HOME EXERCISE PROGRAM TO MINIMIZE FALL RISK. MAY TEACH THE PATIENT FLOOR RECOVERY WHEN CLINICALLY APPROPRIATE. OT/SOCIAL STUDIES TEACHER TO EDUCATE ON HYPERTENSION SELF-MANAGEMENT OT/MARIANNE TO [...] OF SKIN INTEGRITY ISSUES FROM [facility] TO [facility] WITHIN 2 WKS. PT STG: PATIENT WILL [...] TO SAFELY NEGOTIATE STAIRS FROM [facility] TO [facility] WITH 2 STEPS W/O HANDRAIL VIA FRONT [...] 00:00:00 Outpatient NEW ADMISSION [facility] [id number]
--- OUTSIDE RECORDS SUMMARY | 2025-04-06 18:00 | XMS_ITS | Clinical Summary ---
Author Organization Unknown Care Team Providers Care Information Engineer Name Role Phone DIGNA ARIEL, ESTRELLA Unavailable Unava dinora STOKES RN, FRANKIE Unavailable Unavailabl e KARI PT, DIDI Unavailable Unavailable NAT BUSINESS TRANSFORMATION ANALYST, GAUDENCIO Unavailable Unavailabl e RADHA OT, ROLANDO Unavailable Unavailable JOANNE STEVEN, HATTIE Unavailable Unavailable Payers Payer Name Policy Type Policy Number Effective Date Expira tion Date MEDICARE.[facility] [id number] Problems Condition Name Condition Details Condition Category Status Onset Date Resolution Date Last Treatment Date Treating Clinician Comments 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 02-07 [...] OF PNEUMONIA (RECURRENT) Active 02-07 00:00: 00 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) USE OF SYSTEMIC STEROIDS Active [...] 80 mg tablet 02-07 00:00: 00 Yes [id number] CHOLESTEROL 1 tablet DAILY 1 tablet DAILY (route: oral) Med Classific ation: Cardiovas cular Therapy Agents digoxin 125 mcg (0.125 mg) tablet 02-07 00:00: 00 02-21 23:59 :00 No [id number] HEART RHYTHM 1 tablet DAILY 1 tablet DAILY (route: oral) Med Classific ation: Cardiovas cular Therapy Agents escitalopra m 10 mg tablet 02-07 00:00: 00 Yes [id number] MOOD 1 tablet DAILY 1 tablet DAILY (route: oral) Med Classific ation: Central Nervous System Agents ezetimibe 10 mg tablet 02-07 00:00: 00 Yes [id number] CHOLESTEROL 1 tablet DAILY 1 tablet DAILY (route: oral) Med Classific ation: Cardiovas cular Therapy Agents metoprolol succinate ER 25 mg tablet,exte nded release 24 hr 02-07 00:00: 00 02-21 23:59 :00 No [id number] BLOOD PRESSURE 0.5 tablet DAILY 0.5 tablet DAILY (route: oral) Med Classific ation: Cardiovas cular Therapy Agents pantoprazol e 40 mg tablet,joão yed release 02-07 00:00: 00 02-21 23:59 :00 No [id number] STOMACH ACID 1 tablet DAILY 1 tablet DAILY (route: oral) Med Classific ation: Gastroint estinal Therapy Agents prednisone 5 mg tablet 02-07 00:00: 00 Yes [id number] ADRENAL INSUFFICIEN CY 1 tablet DAILY 1 tablet DAILY (route: oral) Med Classific ation: Endocrine spironolact one 25 mg tablet 02-07 00:00: 00 Yes [id number] FLUID RETENTION 0.5 tablet DAILY 0.5 tablet DAILY (route: oral) Med Classific ation: Cardiovas cular Therapy Agents tamsulosin 0.4 mg capsule 02-07 00:00: 00 02-21 23:59 :00 No [id number] URINARY HEALTH 1 capsule DAILY 1 capsule DAILY (route: oral) Med Classific ation: Genitouri nary Therapy acetaminoph en 325 mg tablet 2024-05 00:00: 00 Yes [id number] PAIN 2 tablet 2 TIMES DAILY 2 tablet 2 TIMES DAILY (route: oral) Med Classific ation: Analgesic , Anti-infl ammatory or Antipyret ic aspirin 81 mg tablet 2024-05 00:00: 00 Yes [id number] ANTICOAGULA NT 1 tablet DAILY 1 tablet DAILY (route: oral) Med Classific ation: Hematolog ical Agents ipratropium 0.5 mg-albutero l 3 mg (2.5 mg base)/3 mL nebulizatio n soln 2024-05 00:00: 00 Yes [id number] COPD 3 mL EVERY 6 HOURS 3 mL EVERY 6 HOURS (route: inhalation ) Med Classific ation: Respirato ry Therapy Agents Lanoxin 62.5 mcg (0.0625 mg) tablet 2024-05 00:00: 00 Yes [id number] CHF 1 tablet DAILY 1 tablet DAILY (route: oral) Med Classific ation: Cardiovas cular Therapy Agents Lasix 20 mg tablet 2024-05 00:00: 00 Yes [id number] CHF 1 tablet DAILY 1 tablet DAILY (route: oral) Med Classific ation: Cardiovas cular Therapy Agents Toprol XL 25 mg tablet,exte nded release 2024-05 00:00: 00 Yes [id number] BP 25 mg DAILY 25 mg DAILY [...] SYSTEM MANAGEMENT; RN TO ASSESS AND TEACH, INSTRUMENT REPAIRER HELPER/CITY SUPERINTENDENT TO OBSERVE AND TEACH RELATED TO ALTERED RESPIRATORY STATUS TO MINIMIZE COMPLICATIONS AND REDUCE HOSPITALIZATION. [code = SN 1WK9 PT 1WK1 OT EFFECTIVE 02/10/2025K1 RESPIRATORY SYSTEM MANAGEMENT; RN TO ASSESS AND TEACH, INSTRUMENT REPAIRER HELPER/CITY SUPERINTENDENT TO OBSERVE AND TEACH RELATED TO ALTERED RESPIRATORY STATUS TO MINIMIZE COMPLICATIONS AND REDUCE HOSPITALIZATION.] Future Scheduled Test TRACHEOSTO MY CARE MANAGEMENT; RN/INSTRUMENT REPAIRER HELPER/CITY SUPERINTENDENT TO INSTRUCT PATIENT/CAREGIVER ON CARE AND MANAGEMENT OF TRACHEOSTOMY. RN/ INSTRUMENT REPAIRER HELPER/CITY SUPERINTENDENT TO PROVIDE SKILLED TEACHING ON TRACH COLLAR SUCTIONING PRN WITH 14 FR SUCTION CATHETER PER PATIENT TRACH CARE WITH INNER CANNULA: REMOVE INNER CANNULA, CLEANSE WITH NORMAL SALINE AND OR STERILE WATER AND REINSERT NON-DISPOSABLE CANNULA SIZE OF INNER CANNULA 5 BROOKS [code = TRACHEOSTOMY CARE MANAGEMENT; RN/INSTRUMENT REPAIRER HELPER/CITY SUPERINTENDENT TO INSTRUCT PATIENT/CAREGIVER ON CARE AND MANAGEMENT OF TRACHEOSTOMY. RN/ INSTRUMENT REPAIRER HELPER/CITY SUPERINTENDENT TO PROVIDE SKILLED TEACHING ON TRACH COLLAR SUCTIONING PRN WITH 14 FR SUCTION CATHETER PER PATIENT TRACH CARE WITH INNER CANNULA: REMOVE INNER CANNULA, CLEANSE WITH NORMAL SALINE AND OR STERILE WATER AND REINSERT NON-DISPOSABLE CANNULA SIZE OF INNER CANNULA 5 BROOKS] Future Scheduled Test FALL REDUC TION MANAGEMENT; RN TO ASSESS AND OBSERVE, INSTRUMENT REPAIRER HELPER/CITY SUPERINTENDENT TO OBSERVE FALL RISK FACTORS AND EDUCATE PATIENT/CAREGIVER ON STRATEGIES TO MINIMIZE THE RISK OF FALLING. [code = FALL REDUCTION MANAGEMENT; RN TO ASSESS AND OBSERVE, INSTRUMENT REPAIRER HELPER/CITY SUPERINTENDENT TO OBSERVE FALL RISK FACTORS AND EDUCATE PATIENT/CAREGIVER ON STRATEGIES TO MINIMIZE THE RISK OF FALLING.] Future Scheduled Test ANEMIA MAN AGEMENT; RN TO ASSESS AND TEACH, CITY SUPERINTENDENT/INSTRUMENT REPAIRER HELPER TO OBSERVE AND TEACH AND PROVIDE EDUCATION ON ANEMIA. [code = ANEMIA MANAGEMENT; RN TO ASSESS AND TEACH, CITY SUPERINTENDENT/INSTRUMENT REPAIRER HELPER TO OBSERVE AND TEACH AND PROVIDE EDUCATION ON ANEMIA.] Future Scheduled Test RN TO OBSE RVE, ASSESS, EVALUATE, AND DEVELOP AN INDIVIDUALIZED PLAN OF CARE. AGENCY MAY ACCEPT ORDERS FROM CONSULTING PHYSICIANS RN TO OBSERVE AND ASSESS, INSTRUMENT REPAIRER HELPER/CITY SUPERINTENDENT TO OBSERVE FOR RISK FOR FALLS AND INSTRUCT IN FALL PREVENTION, HOME SAFETY, MEDICATION MANAGEMENT, INFECTION PREVENTION, AND NUTRITION MANAGEMENT. RN/INSTRUMENT REPAIRER HELPER/CITY SUPERINTENDENT NURSE MAY PERFORM O2 SATURATION LEVEL ON ADMISSION AND PRN FOR RN TO ASSESS/INSTRUMENT REPAIRER HELPER TO OBSERVE PATIENT, WITH NOTIFICATION TO THE PHYSICIAN IF SATURATION IS 90% IN THE ABSENCE OF MORE SPECIFIC PARAMETERS FROM THE PHYSICIAN. AGENCY MAY PERFORM A RESUMPTION OF CARE VISIT FOLLOWING ANY HOSPITAL ADMISSION. RN/INSTRUMENT REPAIRER HELPER/CITY SUPERINTENDENT TO MONITOR CO-MORBID CONDITIONS LISTED ON THE PLAN OF CARE AND ANY NEW CONDITIONS THAT PRESENT THEMSELVES DURING THIS EPISODE TO IDENTIFY CHANGES AND INTERVENE TO MINIMIZE COMPLICATIONS. [code = RN TO OBSERVE, ASSESS, EVALUATE, AND DEVELOP AN INDIVIDUALIZED PLAN OF CARE. AGENCY MAY ACCEPT ORDERS FROM CONSULTING PHYSICIANS RN TO OBSERVE AND ASSESS, INSTRUMENT REPAIRER HELPER/CITY SUPERINTENDENT TO OBSERVE FOR RISK FOR FALLS AND INSTRUCT IN FALL PREVENTION, HOME SAFETY, MEDICATION MANAGEMENT, INFECTION PREVENTION, AND NUTRITION MANAGEMENT. RN/INSTRUMENT REPAIRER HELPER/CITY SUPERINTENDENT NURSE MAY PERFORM O2 SATURATION LEVEL ON ADMISSION AND PRN FOR RN TO ASSESS/INSTRUMENT REPAIRER HELPER TO OBSERVE PATIENT, WITH NOTIFICATION TO THE PHYSICIAN IF SATURATION IS 90% IN THE ABSENCE OF MORE SPECIFIC PARAMETERS FROM THE PHYSICIAN. AGENCY MAY PERFORM A RESUMPTION OF CARE VISIT FOLLOWING ANY HOSPITAL ADMISSION. RN/INSTRUMENT REPAIRER HELPER/CITY SUPERINTENDENT TO MONITOR CO-MORBID CONDITIONS LISTED ON THE PLAN OF CARE AND ANY NEW CONDITIONS THAT PRESENT THEMSELVES DURING THIS EPISODE TO IDENTIFY CHANGES AND INTERVENE TO MINIMIZE COMPLICATIONS.] Future Scheduled Test PAIN MANAG EMENT; RN TO ASSESS AND TEACH, CITY SUPERINTENDENT/INSTRUMENT REPAIRER HELPER TO OBSERVE AND TEACH AND PROVIDE EDUCATION ON PAIN MANAGEMENT TECHNIQUES. [code = PAIN MANAGEMENT; RN TO ASSESS AND TEACH, CITY SUPERINTENDENT/INSTRUMENT REPAIRER HELPER TO OBSERVE AND TEACH AND PROVIDE EDUCATION ON PAIN MANAGEMENT TECHNIQUES.] Future Scheduled Test RISK FOR H OSPITALIZATION; RN TO ASSESS/TEACH, CITY SUPERINTENDENT/INSTRUMENT REPAIRER HELPER TO OBSERVE/TEACH PATIENT/CAREGIVER ON RISK FOR HOSPITALIZATION/EMERGENCY ROOM VISITS, TEACH SIGNS AND SYMPTOMS THAT PUT PATIENT AT RISK, WHEN TO NOTIFY NURSE/PHYSICIAN OF COMPLICATIONS/DECLINE, AND WHEN TO CALL 911. [code = RISK FOR HOSPITALIZATION; RN TO ASSESS/TEACH, CITY SUPERINTENDENT/INSTRUMENT REPAIRER HELPER TO OBSERVE/TEACH PATIENT/CAREGIVER ON RISK FOR HOSPITALIZATION/EMERGENCY ROOM VISITS, TEACH SIGNS AND SYMPTOMS THAT PUT PATIENT AT RISK, WHEN TO NOTIFY NURSE/PHYSICIAN OF COMPLICATIONS/DECLINE, AND WHEN TO CALL 911.] Future Scheduled Test CARDIOVASC ULAR SYSTEM; RN TO ASSESS/TEACH, INSTRUMENT REPAIRER HELPER/CITY SUPERINTENDENT TO OBSERVE/TEACH RELATED TO ALTERED CARDIOVASCULAR STATUS TO MINIMIZE COMPLICATIONS AND REDUCE HOSPITALIZATION. [code = CARDIOVASCULAR SYSTEM; RN TO ASSESS/TEACH, INSTRUMENT REPAIRER HELPER/CITY SUPERINTENDENT TO OBSERVE/TEACH RELATED TO ALTERED CARDIOVASCULAR STATUS TO MINIMIZE COMPLICATIONS AND REDUCE HOSPITALIZATION.] Future Scheduled Test HYPERTENSI ON MANAGEMENT; RN TO ASSESS AND TEACH, INSTRUMENT REPAIRER HELPER/CITY SUPERINTENDENT TO OBSERVE AND TEACH WARNING SIGNS AND SYMPTOMS TO AVOID HOSPITALIZATION. [code = HYPERTENSION MANAGEMENT; RN TO ASSESS AND TEACH, INSTRUMENT REPAIRER HELPER/CITY SUPERINTENDENT TO OBSERVE AND TEACH WARNING SIGNS AND SYMPTOMS TO AVOID HOSPITALIZATION.] Future Scheduled Test HEART FAIL URE MONITORING RN/CITY SUPERINTENDENT/INSTRUMENT REPAIRER HELPER TO MONITOR PATIENT FOR SIGNS AND SYMPTOMS OF HEART FAILURE EXACERBATION, MONITOR FOR ADHERENCE WITH MEDICATION AND HEART FAILURE MANAGEMENT REGIMEN. [code = HEART FAILURE MONITORING RN/CITY SUPERINTENDENT/INSTRUMENT REPAIRER HELPER TO MONITOR PATIENT FOR SIGNS AND SYMPTOMS OF HEART FAILURE EXACERBATION, MONITOR FOR ADHERENCE WITH MEDICATION AND HEART FAILURE MANAGEMENT REGIMEN.] Future Scheduled Test DIABETES M ONITORING RN/CITY SUPERINTENDENT/INSTRUMENT REPAIRER HELPER TO MONITOR BLOOD SUGAR LOG FOR BLOOD SUGAR READINGS THAT ARE BEING CHECKED BY PATIENT, CAREGIVER NEEDED FOR SIGNS AND SYMPTOMS OF HYPER/HYPOGLYCEMIA. PATIENT THERAPEUTIC BLOOD SUGAR PARAMETERS ARE 70 - 300. REPORT BLOOD SUGARS OUT OF RANGE TO PHYSICIAN. NURSE MAY PERFORM FINGER STICK BLOOD GLUCOSE NEEDED FOR SIGNS AND SYMPTOMS OF HYPO AND HYPERGLYCEMIA. RN/CITY SUPERINTENDENT/INSTRUMENT REPAIRER HELPER TO MONITOR ADHERENCE OF PATIENT/CAREGIVER PERFORMING DIABETIC FOOT CARE AND MAY PERFORM DIABETIC FOOT CARE PRN. RN/CITY SUPERINTENDENT/INSTRUMENT REPAIRER HELPER TO MONITOR FOR ADHERENCE TO DIABETIC SELF-CARE AND MANAGEMENT INCLUDING MEDICATIONS. [code = DIABETES MONITORING RN/CITY SUPERINTENDENT/INSTRUMENT REPAIRER HELPER TO MONITOR BLOOD SUGAR LOG FOR BLOOD SUGAR READINGS THAT ARE BEING CHECKED BY PATIENT, CAREGIVER NEEDED FOR SIGNS AND SYMPTOMS OF HYPER/HYPOGLYCEMIA. PATIENT THERAPEUTIC BLOOD SUGAR PARAMETERS ARE 70 - 300. REPORT BLOOD SUGARS OUT OF RANGE TO PHYSICIAN. NURSE MAY PERFORM FINGER STICK BLOOD GLUCOSE NEEDED FOR SIGNS AND SYMPTOMS OF HYPO AND HYPERGLYCEMIA. RN/CITY SUPERINTENDENT/INSTRUMENT REPAIRER HELPER TO MONITOR ADHERENCE OF PATIENT/CAREGIVER PERFORMING DIABETIC FOOT CARE AND MAY PERFORM DIABETIC FOOT CARE PRN. RN/CITY SUPERINTENDENT/INSTRUMENT REPAIRER HELPER TO MONITOR FOR ADHERENCE TO DIABETIC SELF-CARE AND MANAGEMENT INCLUDING MEDICATIONS.] Future Scheduled Test HYPOTENSIO N MANAGEMENT; RN TO ASSESS AND TEACH/ INSTRUMENT REPAIRER HELPER /CITY SUPERINTENDENT TO OBSERVE AND TEACH WARNING SIGNS AND SYMPTOMS TO AVOID HOSPITALIZATION. [code = HYPOTENSION MANAGEMENT; RN TO ASSESS AND TEACH/ INSTRUMENT REPAIRER HELPER /CITY SUPERINTENDENT TO OBSERVE AND TEACH WARNING SIGNS AND SYMPTOMS TO AVOID HOSPITALIZATION.] Future Scheduled Test ARRHYTHMIA MANAGEMENT; RN TO ASSESS AND TEACH, INSTRUMENT REPAIRER HELPER/CITY SUPERINTENDENT TO OBSERVE AND TEACH WARNING SIGNS AND SYMPTOMS TO AVOID HOSPITALIZATION. [code = ARRHYTHMIA MANAGEMENT; RN TO ASSESS AND TEACH, INSTRUMENT REPAIRER HELPER/CITY SUPERINTENDENT TO OBSERVE AND TEACH WARNING SIGNS AND SYMPTOMS TO AVOID HOSPITALIZATION.] Future Scheduled Test MEDICATION MANAGEMENT; RN/INSTRUMENT REPAIRER HELPER/CITY SUPERINTENDENT TO REVIEW MEDICATIONS FOR INTERACTIONS, EFFECTIVENESS OF DRUG THERAPY, AND SIGNS/SYMPTOMS OF ADVERSE REACTIONS. MAY INSTRUCT AND REINFORCE MEDICATION TEACHING RELATED TO THE USE OF MEDICATIONS, DOSAGE, FREQUENCY, PURPOSE, SIDE EFFECTS, AND TO REPORT COMPLICATIONS. [code = MEDICATION MANAGEMENT; RN/INSTRUMENT REPAIRER HELPER/CITY SUPERINTENDENT TO REVIEW MEDICATIONS FOR INTERACTIONS, EFFECTIVENESS OF [...] EVAL UATE, OBSERVE / ASSESS, AND MONITOR, BUSINESS TRANSFORMATION ANALYST TO OBSERVE AND MONITOR, PROVIDE SKILLED THERAPEUTIC INTERVENTION, ACTIVITY, EDUCATION, AND TRAINING TO ADDRESS GEN. WEAKNESS, POOR OVERALL ACTIVITY TOLERANCE, AND FUNCTIONAL LIMITATIONS IMPACTING SAFETY AND INDEPENDENCE. BED MOBILITY (PT/BUSINESS TRANSFORMATION ANALYST) PT/BUSINESS TRANSFORMATION ANALYST TO PROVIDE GAIT TRAINING FOR IMPROVED MOBILITY AND /OR TO NORMALIZE GAIT PATTERN THERAPEUTIC EXERCISES AND ESTABLISHING A HOME EXERCISE PROGRAM (PT/BUSINESS TRANSFORMATION ANALYST) PT/BUSINESS TRANSFORMATION ANALYST TO PROVIDE STAIR TRAINING PT / BUSINESS TRANSFORMATION ANALYST TO MONITOR AND EDUCATE ON OXYGEN SATURATION DURING ADLS/IADLS, NOTIFY PHYSICIAN AND/OR THE RN CLINICAL MECHANICAL TEST ENGINEER FOR PHYSICIAN NOTIFICATION AND IF O2 SATS BELOW PHYSICIAN ORDERED PARAMETERS AFTER 10 MIN OF REST PT / BUSINESS TRANSFORMATION ANALYST TO OBSERVE FOR EARLY SIGNS AND SYMPTOMS OF DEPRESSION OR DEPRESSION GETTING WORSE AND TO EDUCATE ON HOW TO FIND HELP. PT / BUSINESS TRANSFORMATION ANALYST MAY EDUCATE ON PAIN MANAGEMENT CLINICALLY INDICATED, INCLUDING NON-PHARMACOLOGICAL PAIN REDUCTION TECHNIQUES PT / BUSINESS TRANSFORMATION ANALYST TO MONITOR FOR HYPO/HYPERGLYCEMIA AND CONDUCT ROUTINE FOOT INSPECTIONS. RECORD PATIENT REPORTED BLOOD SUGAR LEVELS AND NOTIFY PHYSICIAN AND/OR THE RN CLINICAL MECHANICAL TEST ENGINEER FOR PHYSICIAN NOTIFICATION IF BLOOD SUGAR LEVELS ARE OUTSIDE ORDERED PARAMETERS. TEACH PATIENT/CAREGIVER ON DAILY FOOT INSPECTIONS PT / BUSINESS TRANSFORMATION ANALYST TO INSTRUCT PATIENT/CAREGIVER ON RISK FOR HOSPITALIZATION/EMERGENCY ROOM VISITS, TEACH SIGNS AND SYMPTOMS THAT PUT PATIENT AT RISK, WHEN TO NOTIFY NURSE/PHYSICIAN OF COMPLICATIONS/DECLINE, AND WHEN TO CALL 911. PT/BUSINESS TRANSFORMATION ANALYST TO EDUCATE ON ARTHRITIS SELF-MANAGEMENT PT / BUSINESS TRANSFORMATION ANALYST TO EDUCATE ON HEART FAILURE SELF-MANAGEMENT PT / BUSINESS TRANSFORMATION ANALYST TO EDUCATE ON HYPERTENSION SELF-MANAGEMENT PT TO ASSESS / BUSINESS TRANSFORMATION ANALYST TO MONITOR CARDIO/RESPIRATORY SYSTEM; AND NOTIFY THE PHYSICIAN AND/OR THE RN CLINICAL MECHANICAL TEST ENGINEER FOR PHYSICIAN NOTIFICATION FOR EARLY SIGNS AND SYMPTOMS OF EXACERBATION OR DETERIORATION. PT / BUSINESS TRANSFORMATION ANALYST TO EDUCATE ON ATRIAL FIBRILLATION SELF-MANAGEMENT. PT / BUSINESS TRANSFORMATION ANALYST TO EDUCATE ON PNEUMONIA / ASPIRATION PNEUMONIA SELF-MANAGEMENT. PT/BUSINESS TRANSFORMATION ANALYST TO IDENTIFY FALL RISK FACTORS; EDUCATE THE PATIENT/CAREGIVER ON WAYS TO REDUCE FALL RISK FACTORS AND ESTABLISH HOME EXERCISE PROGRAM TO MINIMIZE FALL RISK. MAY TEACH THE PATIENT FLOOR RECOVERY WHEN CLINICALLY APPROPRIATE [code = PT TO EVALUATE, OBSERVE / ASSESS, AND MONITOR, BUSINESS TRANSFORMATION ANALYST TO OBSERVE AND MONITOR, PROVIDE SKILLED THERAPEUTIC INTERVENTION, ACTIVITY, EDUCATION, AND TRAINING TO ADDRESS GEN. WEAKNESS, POOR OVERALL ACTIVITY TOLERANCE, AND FUNCTIONAL LIMITATIONS IMPACTING SAFETY AND INDEPENDENCE. BED MOBILITY (PT/BUSINESS TRANSFORMATION ANALYST) PT/BUSINESS TRANSFORMATION ANALYST TO PROVIDE GAIT TRAINING FOR IMPROVED MOBILITY AND /OR TO NORMALIZE GAIT PATTERN THERAPEUTIC EXERCISES AND ESTABLISHING A HOME EXERCISE PROGRAM (PT/BUSINESS TRANSFORMATION ANALYST) PT/BUSINESS TRANSFORMATION ANALYST TO PROVIDE STAIR TRAINING PT / BUSINESS TRANSFORMATION ANALYST TO MONITOR AND EDUCATE ON OXYGEN SATURATION DURING ADLS/IADLS, NOTIFY PHYSICIAN AND/OR THE RN CLINICAL MECHANICAL TEST ENGINEER FOR PHYSICIAN NOTIFICATION AND IF O2 SATS BELOW PHYSICIAN ORDERED PARAMETERS AFTER 10 MIN OF REST PT / BUSINESS TRANSFORMATION ANALYST TO OBSERVE FOR EARLY SIGNS AND SYMPTOMS OF DEPRESSION OR DEPRESSION GETTING WORSE AND TO EDUCATE ON HOW TO FIND HELP. PT / BUSINESS TRANSFORMATION ANALYST MAY EDUCATE ON PAIN MANAGEMENT CLINICALLY INDICATED, INCLUDING NON-PHARMACOLOGICAL PAIN REDUCTION TECHNIQUES PT / BUSINESS TRANSFORMATION ANALYST TO MONITOR FOR HYPO/HYPERGLYCEMIA AND CONDUCT ROUTINE FOOT INSPECTIONS. RECORD PATIENT REPORTED BLOOD SUGAR LEVELS AND NOTIFY PHYSICIAN AND/OR THE RN CLINICAL MECHANICAL TEST ENGINEER FOR PHYSICIAN NOTIFICATION IF BLOOD SUGAR LEVELS ARE OUTSIDE ORDERED PARAMETERS. TEACH PATIENT/CAREGIVER ON DAILY FOOT INSPECTIONS PT / BUSINESS TRANSFORMATION ANALYST TO INSTRUCT PATIENT/CAREGIVER ON RISK FOR HOSPITALIZATION/EMERGENCY ROOM VISITS, TEACH SIGNS AND SYMPTOMS THAT PUT PATIENT AT RISK, WHEN TO NOTIFY NURSE/PHYSICIAN OF COMPLICATIONS/DECLINE, AND WHEN TO CALL 911. PT/BUSINESS TRANSFORMATION ANALYST TO EDUCATE ON ARTHRITIS SELF-MANAGEMENT PT / BUSINESS TRANSFORMATION ANALYST TO EDUCATE ON HEART FAILURE SELF-MANAGEMENT PT / BUSINESS TRANSFORMATION ANALYST TO EDUCATE ON HYPERTENSION SELF-MANAGEMENT PT TO ASSESS / BUSINESS TRANSFORMATION ANALYST TO MONITOR CARDIO/RESPIRATORY SYSTEM; AND NOTIFY THE PHYSICIAN AND/OR THE RN CLINICAL MECHANICAL TEST ENGINEER FOR PHYSICIAN NOTIFICATION FOR EARLY SIGNS AND SYMPTOMS OF EXACERBATION OR DETERIORATION. PT / BUSINESS TRANSFORMATION ANALYST TO EDUCATE ON ATRIAL FIBRILLATION SELF-MANAGEMENT. PT / BUSINESS TRANSFORMATION ANALYST TO EDUCATE ON PNEUMONIA / ASPIRATION PNEUMONIA SELF-MANAGEMENT. PT/BUSINESS TRANSFORMATION ANALYST TO IDENTIFY FALL RISK FACTORS; EDUCATE THE PATIENT/CAREGIVER ON WAYS TO REDUCE FALL RISK FACTORS AND ESTABLISH HOME EXERCISE PROGRAM TO MINIMIZE FALL RISK. MAY TEACH THE PATIENT FLOOR RECOVERY WHEN CLINICALLY APPROPRIATE] Future Scheduled Test AGENCY MAY PERFORM A RESUMPTION OF CARE VISIT FOLLOWING ANY HOSPITAL ADMISSION. OT TO EVALUATE, OBSERVE / ASSESS, AND MONITOR, PRIMARY HEALTH CARE NURSE TO OBSERVE AND MONITOR, PROVIDE SKILLED THERAPEUTIC INTERVENTION, ACTIVITY, EDUCATION, AND TRAINING TO ADDRESS SAFETY AND INDEPENDENCE OF ADLS AND FUNCTIONAL TRANSFERS IN HOME ENVIRONMENT. ACTIVITIES OF DAILY LIVING (OT/MARIANNE) THERAPEUTIC EXERCISE (OT/PRIMARY HEALTH CARE NURSE) ENERGY CONSERVATION/ACTIVITY DEMAND (OT/PRIMARY HEALTH CARE NURSE) OT/PRIMARY HEALTH CARE NURSE TO MONITOR AND EDUCATE ON OXYGEN SATURATION DURING ADLS/IADLS, NOTIFY PHYSICIAN AND/OR THE RN CLINICAL MECHANICAL TEST ENGINEER FOR PHYSICIAN NOTIFICATION AND IF O2 SATS BELOW 90% AFTER 10 MIN OF REST. OT / PRIMARY HEALTH CARE NURSE TO IDENTIFY FALL RISK FACTORS; EDUCATE THE PATIENT/CAREGIVER ON WAYS TO REDUCE FALL RISK FACTORS AND ESTABLISH HOME EXERCISE PROGRAM TO MINIMIZE FALL RISK. MAY TEACH THE PATIENT FLOOR RECOVERY WHEN CLINICALLY APPROPRIATE. OT/PRIMARY HEALTH CARE NURSE TO EDUCATE ON HYPERTENSION SELF-MANAGEMENT OT/MARIANNE TO EDUCATE ON ATRIAL FIBRILLATION SELF-MANAGEMENT. [code = AGENCY MAY PERFORM A RESUMPTION OF CARE VISIT FOLLOWING ANY HOSPITAL ADMISSION. OT TO EVALUATE, OBSERVE / ASSESS, AND MONITOR, PRIMARY HEALTH CARE NURSE TO OBSERVE AND MONITOR, PROVIDE SKILLED THERAPEUTIC INTERVENTION, ACTIVITY, EDUCATION, AND TRAINING TO ADDRESS SAFETY AND INDEPENDENCE OF ADLS AND FUNCTIONAL TRANSFERS IN HOME ENVIRONMENT. ACTIVITIES OF DAILY LIVING (OT/MARIANNE) THERAPEUTIC EXERCISE (OT/PRIMARY HEALTH CARE NURSE) ENERGY CONSERVATION/ACTIVITY DEMAND (OT/MARIANNE) OT/PRIMARY HEALTH CARE NURSE TO MONITOR AND EDUCATE ON OXYGEN SATURATION DURING ADLS/IADLS, NOTIFY PHYSICIAN AND/OR THE RN CLINICAL MECHANICAL TEST ENGINEER FOR PHYSICIAN NOTIFICATION AND IF O2 SATS BELOW 90% AFTER 10 MIN OF REST. OT / MARIANNE TO IDENTIFY FALL RISK FACTORS; EDUCATE THE PATIENT/CAREGIVER ON WAYS TO REDUCE FALL RISK FACTORS AND ESTABLISH HOME EXERCISE PROGRAM TO MINIMIZE FALL RISK. MAY TEACH THE PATIENT FLOOR RECOVERY WHEN CLINICALLY APPROPRIATE. OT/PRIMARY HEALTH CARE NURSE TO EDUCATE ON HYPERTENSION SELF-MANAGEMENT OT/MARIANNE TO [...] OF SKIN INTEGRITY ISSUES FROM SBA TO AR WITHIN 2 WKS. PT STG: PATIENT WILL [...] TO SAFELY NEGOTIATE STAIRS FROM SBA TO AR WITH 2 STEPS W/O HANDRAIL VIA FRONT [...] End Date/Time Encounter Type Admission Type Attending [facility] Care Department Encounter ID Discharge Date Discharge Status Discharge Condition Discharge Reason Percent Goals Met 2025-02-07 00:00:00 2025-04-07 00:00:00 Outpatient NEW ADMISSION [facility] [id number]
--- OUTSIDE RECORDS SUMMARY | 2025-04-06 18:00 | XMS_ITS | Clinical Summary ---
Author Organization Unknown Care Team Providers Care Manager Leadership Development Name Role Phone DIGNA ARIEL, ESTRELLA Unavailable Unava dinora STOKES RN, FRANKIE Unavailable Unavailabl e KARI PT, DIDI Unavailable Unavailable NAT MANAGER OPERATIONS RESEARCH, GAUDENCIO Unavailable Unavailabl e RADHA OT, ROLANDO Unavailable Unavailable JOANNE STEVEN, HATTIE Unavailable Unavailable Payers Payer Name Policy Type Policy Number Effective Date Expira tion Date MEDICARE.[facility] [id number] Problems Condition Name Condition Details Condition Category Status Onset Date Resolution Date Last Treatment Date Treating Clinician Comments 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 02-07 [...] OF PNEUMONIA (RECURRENT) Active 02-07 00:00: 00 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) USE OF SYSTEMIC STEROIDS Active 02-07 [...] 80 mg tablet 02-07 00:00: 00 Yes [id number] CHOLESTEROL 1 tablet DAILY 1 tablet DAILY (route: oral) Med Classific ation: Cardiovas cular Therapy Agents digoxin 125 mcg (0.125 mg) tablet 02-07 00:00: 00 02-21 23:59 :00 No [id number] HEART RHYTHM 1 tablet DAILY 1 tablet DAILY (route: oral) Med Classific ation: Cardiovas cular Therapy Agents escitalopra m 10 mg tablet 02-07 00:00: 00 Yes [id number] MOOD 1 tablet DAILY 1 tablet DAILY (route: oral) Med Classific ation: Central Nervous System Agents ezetimibe 10 mg tablet 02-07 00:00: 00 Yes [id number] CHOLESTEROL 1 tablet DAILY 1 tablet DAILY (route: oral) Med Classific ation: Cardiovas cular Therapy Agents metoprolol succinate ER 25 mg tablet,exte nded release 24 hr 02-07 00:00: 00 02-21 23:59 :00 No [id number] BLOOD PRESSURE 0.5 tablet DAILY 0.5 tablet DAILY (route: oral) Med Classific ation: Cardiovas cular Therapy Agents pantoprazol e 40 mg tablet,joão yed release 02-07 00:00: 00 02-21 23:59 :00 No [id number] STOMACH ACID 1 tablet DAILY 1 tablet DAILY (route: oral) Med Classific ation: Gastroint estinal Therapy Agents prednisone 5 mg tablet 02-07 00:00: 00 Yes [id number] ADRENAL INSUFFICIEN CY 1 tablet DAILY 1 tablet DAILY (route: oral) Med Classific ation: Endocrine spironolact one 25 mg tablet 02-07 00:00: 00 Yes [id number] FLUID RETENTION 0.5 tablet DAILY 0.5 tablet DAILY (route: oral) Med Classific ation: Cardiovas cular Therapy Agents tamsulosin 0.4 mg capsule 02-07 00:00: 00 02-21 23:59 :00 No [id number] URINARY HEALTH 1 capsule DAILY 1 capsule DAILY (route: oral) Med Classific ation: Genitouri nary Therapy acetaminoph en 325 mg tablet 2024-05 00:00: 00 Yes [id number] PAIN 2 tablet 2 TIMES DAILY 2 tablet 2 TIMES DAILY (route: oral) Med Classific ation: Analgesic , Anti-infl ammatory or Antipyret ic aspirin 81 mg tablet 2024-05 00:00: 00 Yes [id number] ANTICOAGULA NT 1 tablet DAILY 1 tablet DAILY (route: oral) Med Classific ation: Hematolog ical Agents ipratropium 0.5 mg-albutero l 3 mg (2.5 mg base)/3 mL nebulizatio n soln 2024-05 00:00: 00 Yes [id number] COPD 3 mL EVERY 6 HOURS 3 mL EVERY 6 HOURS (route: inhalation ) Med Classific ation: Respirato ry Therapy Agents Lanoxin 62.5 mcg (0.0625 mg) tablet 2024-05 00:00: 00 Yes [id number] CHF 1 tablet DAILY 1 tablet DAILY (route: oral) Med Classific ation: Cardiovas cular Therapy Agents Lasix 20 mg tablet 2024-05 00:00: 00 Yes [id number] CHF 1 tablet DAILY 1 tablet DAILY (route: oral) Med Classific ation: Cardiovas cular Therapy Agents Toprol XL 25 mg tablet,exte nded release 2024-05 00:00: 00 Yes [id number] BP 25 mg DAILY 25 mg DAILY [...] SYSTEM MANAGEMENT; RN TO ASSESS AND TEACH, ARSON AND BOMB INVESTIGATOR/SHEET METAL ASSEMBLER TO OBSERVE AND TEACH RELATED TO ALTERED RESPIRATORY STATUS TO MINIMIZE COMPLICATIONS AND REDUCE HOSPITALIZATION. [code = SN 1WK9 PT 1WK1 OT EFFECTIVE 02/10/2025K1 RESPIRATORY SYSTEM MANAGEMENT; RN TO ASSESS AND TEACH, ARSON AND BOMB INVESTIGATOR/SHEET METAL ASSEMBLER TO OBSERVE AND TEACH RELATED TO ALTERED RESPIRATORY STATUS TO MINIMIZE COMPLICATIONS AND REDUCE HOSPITALIZATION.] Future Scheduled Test TRACHEOSTO MY CARE MANAGEMENT; RN/ARSON AND BOMB INVESTIGATOR/SHEET METAL ASSEMBLER TO INSTRUCT PATIENT/CAREGIVER ON CARE AND MANAGEMENT OF TRACHEOSTOMY. RN/ ARSON AND BOMB INVESTIGATOR/SHEET METAL ASSEMBLER TO PROVIDE SKILLED TEACHING ON TRACH COLLAR SUCTIONING PRN WITH 14 FR SUCTION CATHETER PER PATIENT TRACH CARE WITH INNER CANNULA: REMOVE INNER CANNULA, CLEANSE WITH NORMAL SALINE AND OR STERILE WATER AND REINSERT NON-DISPOSABLE CANNULA SIZE OF INNER CANNULA 5 BROOKS [code = TRACHEOSTOMY CARE MANAGEMENT; RN/ARSON AND BOMB INVESTIGATOR/SHEET METAL ASSEMBLER TO INSTRUCT PATIENT/CAREGIVER ON CARE AND MANAGEMENT OF TRACHEOSTOMY. RN/ ARSON AND BOMB INVESTIGATOR/SHEET METAL ASSEMBLER TO PROVIDE SKILLED TEACHING ON TRACH COLLAR SUCTIONING PRN WITH 14 FR SUCTION CATHETER PER PATIENT TRACH CARE WITH INNER CANNULA: REMOVE INNER CANNULA, CLEANSE WITH NORMAL SALINE AND OR STERILE WATER AND REINSERT NON-DISPOSABLE CANNULA SIZE OF INNER CANNULA 5 BROOKS] Future Scheduled Test FALL REDUC TION MANAGEMENT; RN TO ASSESS AND OBSERVE, ARSON AND BOMB INVESTIGATOR/SHEET METAL ASSEMBLER TO OBSERVE FALL RISK FACTORS AND EDUCATE PATIENT/CAREGIVER ON STRATEGIES TO MINIMIZE THE RISK OF FALLING. [code = FALL REDUCTION MANAGEMENT; RN TO ASSESS AND OBSERVE, ARSON AND BOMB INVESTIGATOR/SHEET METAL ASSEMBLER TO OBSERVE FALL RISK FACTORS AND EDUCATE PATIENT/CAREGIVER ON STRATEGIES TO MINIMIZE THE RISK OF FALLING.] Future Scheduled Test ANEMIA MAN AGEMENT; RN TO ASSESS AND TEACH, SHEET METAL ASSEMBLER/ARSON AND BOMB INVESTIGATOR TO OBSERVE AND TEACH AND PROVIDE EDUCATION ON ANEMIA. [code = ANEMIA MANAGEMENT; RN TO ASSESS AND TEACH, SHEET METAL ASSEMBLER/ARSON AND BOMB INVESTIGATOR TO OBSERVE AND TEACH AND PROVIDE EDUCATION ON ANEMIA.] Future Scheduled Test RN TO OBSE RVE, ASSESS, EVALUATE, AND DEVELOP AN INDIVIDUALIZED PLAN OF CARE. AGENCY MAY ACCEPT ORDERS FROM CONSULTING PHYSICIANS RN TO OBSERVE AND ASSESS, ARSON AND BOMB INVESTIGATOR/SHEET METAL ASSEMBLER TO OBSERVE FOR RISK FOR FALLS AND INSTRUCT IN FALL PREVENTION, HOME SAFETY, MEDICATION MANAGEMENT, INFECTION PREVENTION, AND NUTRITION MANAGEMENT. RN/ARSON AND BOMB INVESTIGATOR/SHEET METAL ASSEMBLER NURSE MAY PERFORM O2 SATURATION LEVEL ON ADMISSION AND PRN FOR RN TO ASSESS/ARSON AND BOMB INVESTIGATOR TO OBSERVE PATIENT, WITH NOTIFICATION TO THE PHYSICIAN IF SATURATION IS 90% IN THE ABSENCE OF MORE SPECIFIC PARAMETERS FROM THE PHYSICIAN. AGENCY MAY PERFORM A RESUMPTION OF CARE VISIT FOLLOWING ANY HOSPITAL ADMISSION. RN/ARSON AND BOMB INVESTIGATOR/SHEET METAL ASSEMBLER TO MONITOR CO-MORBID CONDITIONS LISTED ON THE PLAN OF CARE AND ANY NEW CONDITIONS THAT PRESENT THEMSELVES DURING THIS EPISODE TO IDENTIFY CHANGES AND INTERVENE TO MINIMIZE COMPLICATIONS. [code = RN TO OBSERVE, ASSESS, EVALUATE, AND DEVELOP AN INDIVIDUALIZED PLAN OF CARE. AGENCY MAY ACCEPT ORDERS FROM CONSULTING PHYSICIANS RN TO OBSERVE AND ASSESS, ARSON AND BOMB INVESTIGATOR/SHEET METAL ASSEMBLER TO OBSERVE FOR RISK FOR FALLS AND INSTRUCT IN FALL PREVENTION, HOME SAFETY, MEDICATION MANAGEMENT, INFECTION PREVENTION, AND NUTRITION MANAGEMENT. RN/ARSON AND BOMB INVESTIGATOR/SHEET METAL ASSEMBLER NURSE MAY PERFORM O2 SATURATION LEVEL ON ADMISSION AND PRN FOR RN TO ASSESS/ARSON AND BOMB INVESTIGATOR TO OBSERVE PATIENT, WITH NOTIFICATION TO THE PHYSICIAN IF SATURATION IS 90% IN THE ABSENCE OF MORE SPECIFIC PARAMETERS FROM THE PHYSICIAN. AGENCY MAY PERFORM A RESUMPTION OF CARE VISIT FOLLOWING ANY HOSPITAL ADMISSION. RN/ARSON AND BOMB INVESTIGATOR/SHEET METAL ASSEMBLER TO MONITOR CO-MORBID CONDITIONS LISTED ON THE PLAN OF CARE AND ANY NEW CONDITIONS THAT PRESENT THEMSELVES DURING THIS EPISODE TO IDENTIFY CHANGES AND INTERVENE TO MINIMIZE COMPLICATIONS.] Future Scheduled Test PAIN MANAG EMENT; RN TO ASSESS AND TEACH, SHEET METAL ASSEMBLER/ARSON AND BOMB INVESTIGATOR TO OBSERVE AND TEACH AND PROVIDE EDUCATION ON PAIN MANAGEMENT TECHNIQUES. [code = PAIN MANAGEMENT; RN TO ASSESS AND TEACH, SHEET METAL ASSEMBLER/ARSON AND BOMB INVESTIGATOR TO OBSERVE AND TEACH AND PROVIDE EDUCATION ON PAIN MANAGEMENT TECHNIQUES.] Future Scheduled Test RISK FOR H OSPITALIZATION; RN TO ASSESS/TEACH, SHEET METAL ASSEMBLER/ARSON AND BOMB INVESTIGATOR TO OBSERVE/TEACH PATIENT/CAREGIVER ON RISK FOR HOSPITALIZATION/EMERGENCY ROOM VISITS, TEACH SIGNS AND SYMPTOMS THAT PUT PATIENT AT RISK, WHEN TO NOTIFY NURSE/PHYSICIAN OF COMPLICATIONS/DECLINE, AND WHEN TO CALL 911. [code = RISK FOR HOSPITALIZATION; RN TO ASSESS/TEACH, SHEET METAL ASSEMBLER/ARSON AND BOMB INVESTIGATOR TO OBSERVE/TEACH PATIENT/CAREGIVER ON RISK FOR HOSPITALIZATION/EMERGENCY ROOM VISITS, TEACH SIGNS AND SYMPTOMS THAT PUT PATIENT AT RISK, WHEN TO NOTIFY NURSE/PHYSICIAN OF COMPLICATIONS/DECLINE, AND WHEN TO CALL 911.] Future Scheduled Test CARDIOVASC ULAR SYSTEM; RN TO ASSESS/TEACH, ARSON AND BOMB INVESTIGATOR/SHEET METAL ASSEMBLER TO OBSERVE/TEACH RELATED TO ALTERED CARDIOVASCULAR STATUS TO MINIMIZE COMPLICATIONS AND REDUCE HOSPITALIZATION. [code = CARDIOVASCULAR SYSTEM; RN TO ASSESS/TEACH, ARSON AND BOMB INVESTIGATOR/SHEET METAL ASSEMBLER TO OBSERVE/TEACH RELATED TO ALTERED CARDIOVASCULAR STATUS TO MINIMIZE COMPLICATIONS AND REDUCE HOSPITALIZATION.] Future Scheduled Test HYPERTENSI ON MANAGEMENT; RN TO ASSESS AND TEACH, ARSON AND BOMB INVESTIGATOR/SHEET METAL ASSEMBLER TO OBSERVE AND TEACH WARNING SIGNS AND SYMPTOMS TO AVOID HOSPITALIZATION. [code = HYPERTENSION MANAGEMENT; RN TO ASSESS AND TEACH, ARSON AND BOMB INVESTIGATOR/SHEET METAL ASSEMBLER TO OBSERVE AND TEACH WARNING SIGNS AND SYMPTOMS TO AVOID HOSPITALIZATION.] Future Scheduled Test HEART FAIL URE MONITORING RN/SHEET METAL ASSEMBLER/ARSON AND BOMB INVESTIGATOR TO MONITOR PATIENT FOR SIGNS AND SYMPTOMS OF HEART FAILURE EXACERBATION, MONITOR FOR ADHERENCE WITH MEDICATION AND HEART FAILURE MANAGEMENT REGIMEN. [code = HEART FAILURE MONITORING RN/SHEET METAL ASSEMBLER/ARSON AND BOMB INVESTIGATOR TO MONITOR PATIENT FOR SIGNS AND SYMPTOMS OF HEART FAILURE EXACERBATION, MONITOR FOR ADHERENCE WITH MEDICATION AND HEART FAILURE MANAGEMENT REGIMEN.] Future Scheduled Test DIABETES M ONITORING RN/SHEET METAL ASSEMBLER/ARSON AND BOMB INVESTIGATOR TO MONITOR BLOOD SUGAR LOG FOR BLOOD SUGAR READINGS THAT ARE BEING CHECKED BY PATIENT, CAREGIVER NEEDED FOR SIGNS AND SYMPTOMS OF HYPER/HYPOGLYCEMIA. PATIENT THERAPEUTIC BLOOD SUGAR PARAMETERS ARE 70 - 300. REPORT BLOOD SUGARS OUT OF RANGE TO PHYSICIAN. NURSE MAY PERFORM FINGER STICK BLOOD GLUCOSE NEEDED FOR SIGNS AND SYMPTOMS OF HYPO AND HYPERGLYCEMIA. RN/SHEET METAL ASSEMBLER/ARSON AND BOMB INVESTIGATOR TO MONITOR ADHERENCE OF PATIENT/CAREGIVER PERFORMING DIABETIC FOOT CARE AND MAY PERFORM DIABETIC FOOT CARE PRN. RN/SHEET METAL ASSEMBLER/ARSON AND BOMB INVESTIGATOR TO MONITOR FOR ADHERENCE TO DIABETIC SELF-CARE AND MANAGEMENT INCLUDING MEDICATIONS. [code = DIABETES MONITORING RN/SHEET METAL ASSEMBLER/ARSON AND BOMB INVESTIGATOR TO MONITOR BLOOD SUGAR LOG FOR BLOOD SUGAR READINGS THAT ARE BEING CHECKED BY PATIENT, CAREGIVER NEEDED FOR SIGNS AND SYMPTOMS OF HYPER/HYPOGLYCEMIA. PATIENT THERAPEUTIC BLOOD SUGAR PARAMETERS ARE 70 - 300. REPORT BLOOD SUGARS OUT OF RANGE TO PHYSICIAN. NURSE MAY PERFORM FINGER STICK BLOOD GLUCOSE NEEDED FOR SIGNS AND SYMPTOMS OF HYPO AND HYPERGLYCEMIA. RN/SHEET METAL ASSEMBLER/ARSON AND BOMB INVESTIGATOR TO MONITOR ADHERENCE OF PATIENT/CAREGIVER PERFORMING DIABETIC FOOT CARE AND MAY PERFORM DIABETIC FOOT CARE PRN. RN/SHEET METAL ASSEMBLER/ARSON AND BOMB INVESTIGATOR TO MONITOR FOR ADHERENCE TO DIABETIC SELF-CARE AND MANAGEMENT INCLUDING MEDICATIONS.] Future Scheduled Test HYPOTENSIO N MANAGEMENT; RN TO ASSESS AND TEACH/ ARSON AND BOMB INVESTIGATOR /SHEET METAL ASSEMBLER TO OBSERVE AND TEACH WARNING SIGNS AND SYMPTOMS TO AVOID HOSPITALIZATION. [code = HYPOTENSION MANAGEMENT; RN TO ASSESS AND TEACH/ ARSON AND BOMB INVESTIGATOR /SHEET METAL ASSEMBLER TO OBSERVE AND TEACH WARNING SIGNS AND SYMPTOMS TO AVOID HOSPITALIZATION.] Future Scheduled Test ARRHYTHMIA MANAGEMENT; RN TO ASSESS AND TEACH, ARSON AND BOMB INVESTIGATOR/SHEET METAL ASSEMBLER TO OBSERVE AND TEACH WARNING SIGNS AND SYMPTOMS TO AVOID HOSPITALIZATION. [code = ARRHYTHMIA MANAGEMENT; RN TO ASSESS AND TEACH, ARSON AND BOMB INVESTIGATOR/SHEET METAL ASSEMBLER TO OBSERVE AND TEACH WARNING SIGNS AND SYMPTOMS TO AVOID HOSPITALIZATION.] Future Scheduled Test MEDICATION MANAGEMENT; RN/ARSON AND BOMB INVESTIGATOR/SHEET METAL ASSEMBLER TO REVIEW MEDICATIONS FOR INTERACTIONS, EFFECTIVENESS OF DRUG THERAPY, AND SIGNS/SYMPTOMS OF ADVERSE REACTIONS. MAY INSTRUCT AND REINFORCE MEDICATION TEACHING RELATED TO THE USE OF MEDICATIONS, DOSAGE, FREQUENCY, PURPOSE, SIDE EFFECTS, AND TO REPORT COMPLICATIONS. [code = MEDICATION MANAGEMENT; RN/ARSON AND BOMB INVESTIGATOR/SHEET METAL ASSEMBLER TO REVIEW MEDICATIONS FOR INTERACTIONS, EFFECTIVENESS OF [...] EVAL UATE, OBSERVE / ASSESS, AND MONITOR, MANAGER OPERATIONS RESEARCH TO OBSERVE AND MONITOR, PROVIDE SKILLED THERAPEUTIC INTERVENTION, ACTIVITY, EDUCATION, AND TRAINING TO ADDRESS GEN. WEAKNESS, POOR OVERALL ACTIVITY TOLERANCE, AND FUNCTIONAL LIMITATIONS IMPACTING SAFETY AND INDEPENDENCE. BED MOBILITY (PT/MANAGER OPERATIONS RESEARCH) PT/MANAGER OPERATIONS RESEARCH TO PROVIDE GAIT TRAINING FOR IMPROVED MOBILITY AND /OR TO NORMALIZE GAIT PATTERN THERAPEUTIC EXERCISES AND ESTABLISHING A HOME EXERCISE PROGRAM (PT/MANAGER OPERATIONS RESEARCH) PT/MANAGER OPERATIONS RESEARCH TO PROVIDE STAIR TRAINING PT / MANAGER OPERATIONS RESEARCH TO MONITOR AND EDUCATE ON OXYGEN SATURATION DURING ADLS/IADLS, NOTIFY PHYSICIAN AND/OR THE RN CLINICAL SANITATION INSPECTOR FOR PHYSICIAN NOTIFICATION AND IF O2 SATS BELOW PHYSICIAN ORDERED PARAMETERS AFTER 10 MIN OF REST PT / MANAGER OPERATIONS RESEARCH TO OBSERVE FOR EARLY SIGNS AND SYMPTOMS OF DEPRESSION OR DEPRESSION GETTING WORSE AND TO EDUCATE ON HOW TO FIND HELP. PT / MANAGER OPERATIONS RESEARCH MAY EDUCATE ON PAIN MANAGEMENT CLINICALLY INDICATED, INCLUDING NON-PHARMACOLOGICAL PAIN REDUCTION TECHNIQUES PT / MANAGER OPERATIONS RESEARCH TO MONITOR FOR HYPO/HYPERGLYCEMIA AND CONDUCT ROUTINE FOOT INSPECTIONS. RECORD PATIENT REPORTED BLOOD SUGAR LEVELS AND NOTIFY PHYSICIAN AND/OR THE RN CLINICAL SANITATION INSPECTOR FOR PHYSICIAN NOTIFICATION IF BLOOD SUGAR LEVELS ARE OUTSIDE ORDERED PARAMETERS. TEACH PATIENT/CAREGIVER ON DAILY FOOT INSPECTIONS PT / MANAGER OPERATIONS RESEARCH TO INSTRUCT PATIENT/CAREGIVER ON RISK FOR HOSPITALIZATION/EMERGENCY ROOM VISITS, TEACH SIGNS AND SYMPTOMS THAT PUT PATIENT AT RISK, WHEN TO NOTIFY NURSE/PHYSICIAN OF COMPLICATIONS/DECLINE, AND WHEN TO CALL 911. PT/MANAGER OPERATIONS RESEARCH TO EDUCATE ON ARTHRITIS SELF-MANAGEMENT PT / MANAGER OPERATIONS RESEARCH TO EDUCATE ON HEART FAILURE SELF-MANAGEMENT PT / MANAGER OPERATIONS RESEARCH TO EDUCATE ON HYPERTENSION SELF-MANAGEMENT PT TO ASSESS / MANAGER OPERATIONS RESEARCH TO MONITOR CARDIO/RESPIRATORY SYSTEM; AND NOTIFY THE PHYSICIAN AND/OR THE RN CLINICAL SANITATION INSPECTOR FOR PHYSICIAN NOTIFICATION FOR EARLY SIGNS AND SYMPTOMS OF EXACERBATION OR DETERIORATION. PT / MANAGER OPERATIONS RESEARCH TO EDUCATE ON ATRIAL FIBRILLATION SELF-MANAGEMENT. PT / MANAGER OPERATIONS RESEARCH TO EDUCATE ON PNEUMONIA / ASPIRATION PNEUMONIA SELF-MANAGEMENT. PT/MANAGER OPERATIONS RESEARCH TO IDENTIFY FALL RISK FACTORS; EDUCATE THE PATIENT/CAREGIVER ON WAYS TO REDUCE FALL RISK FACTORS AND ESTABLISH HOME EXERCISE PROGRAM TO MINIMIZE FALL RISK. MAY TEACH THE PATIENT FLOOR RECOVERY WHEN CLINICALLY APPROPRIATE [code = PT TO EVALUATE, OBSERVE / ASSESS, AND MONITOR, MANAGER OPERATIONS RESEARCH TO OBSERVE AND MONITOR, PROVIDE SKILLED THERAPEUTIC INTERVENTION, ACTIVITY, EDUCATION, AND TRAINING TO ADDRESS GEN. WEAKNESS, POOR OVERALL ACTIVITY TOLERANCE, AND FUNCTIONAL LIMITATIONS IMPACTING SAFETY AND INDEPENDENCE. BED MOBILITY (PT/MANAGER OPERATIONS RESEARCH) PT/MANAGER OPERATIONS RESEARCH TO PROVIDE GAIT TRAINING FOR IMPROVED MOBILITY AND /OR TO NORMALIZE GAIT PATTERN THERAPEUTIC EXERCISES AND ESTABLISHING A HOME EXERCISE PROGRAM (PT/MANAGER OPERATIONS RESEARCH) PT/MANAGER OPERATIONS RESEARCH TO PROVIDE STAIR TRAINING PT / MANAGER OPERATIONS RESEARCH TO MONITOR AND EDUCATE ON OXYGEN SATURATION DURING ADLS/IADLS, NOTIFY PHYSICIAN AND/OR THE RN CLINICAL SANITATION INSPECTOR FOR PHYSICIAN NOTIFICATION AND IF O2 SATS BELOW PHYSICIAN ORDERED PARAMETERS AFTER 10 MIN OF REST PT / MANAGER OPERATIONS RESEARCH TO OBSERVE FOR EARLY SIGNS AND SYMPTOMS OF DEPRESSION OR DEPRESSION GETTING WORSE AND TO EDUCATE ON HOW TO FIND HELP. PT / MANAGER OPERATIONS RESEARCH MAY EDUCATE ON PAIN MANAGEMENT CLINICALLY INDICATED, INCLUDING NON-PHARMACOLOGICAL PAIN REDUCTION TECHNIQUES PT / MANAGER OPERATIONS RESEARCH TO MONITOR FOR HYPO/HYPERGLYCEMIA AND CONDUCT ROUTINE FOOT INSPECTIONS. RECORD PATIENT REPORTED BLOOD SUGAR LEVELS AND NOTIFY PHYSICIAN AND/OR THE RN CLINICAL SANITATION INSPECTOR FOR PHYSICIAN NOTIFICATION IF BLOOD SUGAR LEVELS ARE OUTSIDE ORDERED PARAMETERS. TEACH PATIENT/CAREGIVER ON DAILY FOOT INSPECTIONS PT / MANAGER OPERATIONS RESEARCH TO INSTRUCT PATIENT/CAREGIVER ON RISK FOR HOSPITALIZATION/EMERGENCY ROOM VISITS, TEACH SIGNS AND SYMPTOMS THAT PUT PATIENT AT RISK, WHEN TO NOTIFY NURSE/PHYSICIAN OF COMPLICATIONS/DECLINE, AND WHEN TO CALL 911. PT/MANAGER OPERATIONS RESEARCH TO EDUCATE ON ARTHRITIS SELF-MANAGEMENT PT / MANAGER OPERATIONS RESEARCH TO EDUCATE ON HEART FAILURE SELF-MANAGEMENT PT / MANAGER OPERATIONS RESEARCH TO EDUCATE ON HYPERTENSION SELF-MANAGEMENT PT TO ASSESS / MANAGER OPERATIONS RESEARCH TO MONITOR CARDIO/RESPIRATORY SYSTEM; AND NOTIFY THE PHYSICIAN AND/OR THE RN CLINICAL SANITATION INSPECTOR FOR PHYSICIAN NOTIFICATION FOR EARLY SIGNS AND SYMPTOMS OF EXACERBATION OR DETERIORATION. PT / MANAGER OPERATIONS RESEARCH TO EDUCATE ON ATRIAL FIBRILLATION SELF-MANAGEMENT. PT / MANAGER OPERATIONS RESEARCH TO EDUCATE ON PNEUMONIA / ASPIRATION PNEUMONIA SELF-MANAGEMENT. PT/MANAGER OPERATIONS RESEARCH TO IDENTIFY FALL RISK FACTORS; EDUCATE THE PATIENT/CAREGIVER ON WAYS TO REDUCE FALL RISK FACTORS AND ESTABLISH HOME EXERCISE PROGRAM TO MINIMIZE FALL RISK. MAY TEACH THE PATIENT FLOOR RECOVERY WHEN CLINICALLY APPROPRIATE] Future Scheduled Test AGENCY MAY PERFORM A RESUMPTION OF CARE VISIT FOLLOWING ANY HOSPITAL ADMISSION. OT TO EVALUATE, OBSERVE / ASSESS, AND MONITOR, CASSANDRA CONSULTANT TO OBSERVE AND MONITOR, PROVIDE SKILLED THERAPEUTIC INTERVENTION, ACTIVITY, EDUCATION, AND TRAINING TO ADDRESS SAFETY AND INDEPENDENCE OF ADLS AND FUNCTIONAL TRANSFERS IN HOME ENVIRONMENT. ACTIVITIES OF DAILY LIVING (OT/MARIANNE) THERAPEUTIC EXERCISE (OT/CASSANDRA CONSULTANT) ENERGY CONSERVATION/ACTIVITY DEMAND (OT/CASSANDRA CONSULTANT) OT/CASSANDRA CONSULTANT TO MONITOR AND EDUCATE ON OXYGEN SATURATION DURING ADLS/IADLS, NOTIFY PHYSICIAN AND/OR THE RN CLINICAL SANITATION INSPECTOR FOR PHYSICIAN NOTIFICATION AND IF O2 SATS BELOW 90% AFTER 10 MIN OF REST. OT / CASSANDRA CONSULTANT TO IDENTIFY FALL RISK FACTORS; EDUCATE THE PATIENT/CAREGIVER ON WAYS TO REDUCE FALL RISK FACTORS AND ESTABLISH HOME EXERCISE PROGRAM TO MINIMIZE FALL RISK. MAY TEACH THE PATIENT FLOOR RECOVERY WHEN CLINICALLY APPROPRIATE. OT/CASSANDRA CONSULTANT TO EDUCATE ON HYPERTENSION SELF-MANAGEMENT OT/MARIANNE TO EDUCATE ON ATRIAL FIBRILLATION SELF-MANAGEMENT. [code = AGENCY MAY PERFORM A RESUMPTION OF CARE VISIT FOLLOWING ANY HOSPITAL ADMISSION. OT TO EVALUATE, OBSERVE / ASSESS, AND MONITOR, CASSANDRA CONSULTANT TO OBSERVE AND MONITOR, PROVIDE SKILLED THERAPEUTIC INTERVENTION, ACTIVITY, EDUCATION, AND TRAINING TO ADDRESS SAFETY AND INDEPENDENCE OF ADLS AND FUNCTIONAL TRANSFERS IN HOME ENVIRONMENT. ACTIVITIES OF DAILY LIVING (OT/MARIANNE) THERAPEUTIC EXERCISE (OT/CASSANDRA CONSULTANT) ENERGY CONSERVATION/ACTIVITY DEMAND (OT/MARIANNE) OT/CASSANDRA CONSULTANT TO MONITOR AND EDUCATE ON OXYGEN SATURATION DURING ADLS/IADLS, NOTIFY PHYSICIAN AND/OR THE RN CLINICAL SANITATION INSPECTOR FOR PHYSICIAN NOTIFICATION AND IF O2 SATS BELOW 90% AFTER 10 MIN OF REST. OT / MARIANNE TO IDENTIFY FALL RISK FACTORS; EDUCATE THE PATIENT/CAREGIVER ON WAYS TO REDUCE FALL RISK FACTORS AND ESTABLISH HOME EXERCISE PROGRAM TO MINIMIZE FALL RISK. MAY TEACH THE PATIENT FLOOR RECOVERY WHEN CLINICALLY APPROPRIATE. OT/CASSANDRA CONSULTANT TO EDUCATE ON HYPERTENSION SELF-MANAGEMENT OT/MARIANNE TO [...] OF SKIN INTEGRITY ISSUES FROM SBA TO LA WITHIN 2 WKS. PT STG: PATIENT WILL [...] TO SAFELY NEGOTIATE STAIRS FROM SBA TO LA WITH 2 STEPS W/O HANDRAIL VIA FRONT [...] End Date/Time Encounter Type Admission Type Attending [facility] Care Department Encounter ID Discharge Date Discharge Status Discharge Condition Discharge Reason Percent Goals Met 2025-02-07 00:00:00 2025-04-07 00:00:00 Outpatient NEW ADMISSION FR[facility]OK[facility] [id number] 26.42
--- OUTSIDE RECORDS SUMMARY | 2025-04-06 18:00 | XMS_ITS | Clinical Summary ---
Author Organization Unknown Care Team Providers Care Industrial Relations Analyst Name Role Phone DIGNA ARIEL, ESTRELLA Unavailable Unava dinora STOKES RN, FRANKIE Unavailable Unavailabl e KARI PT, DIDI Unavailable Unavailable NAT MERCHANDISING STOCK ASSOCIATE, GAUDENCIO Unavailable Unavailabl e RADHA OT, ROLANDO Unavailable Unavailable JOANNE STEVEN, HATTIE Unavailable Unavailable Payers Payer Name Policy Type Policy Number Effective Date Expira tion Date MEDICARE.[facility] [id number] Problems Condition Name Condition Details Condition Category Status Onset Date Resolution Date Last Treatment Date Treating Clinician Comments 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 02-07 [...] OF PNEUMONIA (RECURRENT) Active 02-07 00:00: 00 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) USE OF SYSTEMIC STEROIDS Active 02-07 [...] 80 mg tablet 02-07 00:00: 00 Yes [id number] CHOLESTEROL 1 tablet DAILY 1 tablet DAILY (route: oral) Med Classific ation: Cardiovas cular Therapy Agents digoxin 125 mcg (0.125 mg) tablet 02-07 00:00: 00 02-21 23:59 :00 No [id number] HEART RHYTHM 1 tablet DAILY 1 tablet DAILY (route: oral) Med Classific ation: Cardiovas cular Therapy Agents escitalopra m 10 mg tablet 02-07 00:00: 00 Yes [id number] MOOD 1 tablet DAILY 1 tablet DAILY (route: oral) Med Classific ation: Central Nervous System Agents ezetimibe 10 mg tablet 02-07 00:00: 00 Yes [id number] CHOLESTEROL 1 tablet DAILY 1 tablet DAILY (route: oral) Med Classific ation: Cardiovas cular Therapy Agents metoprolol succinate ER 25 mg tablet,exte nded release 24 hr 02-07 00:00: 00 02-21 23:59 :00 No [id number] BLOOD PRESSURE 0.5 tablet DAILY 0.5 tablet DAILY (route: oral) Med Classific ation: Cardiovas cular Therapy Agents pantoprazol e 40 mg tablet,joão yed release 02-07 00:00: 00 02-21 23:59 :00 No [id number] STOMACH ACID 1 tablet DAILY 1 tablet DAILY (route: oral) Med Classific ation: Gastroint estinal Therapy Agents prednisone 5 mg tablet 02-07 00:00: 00 Yes [id number] ADRENAL INSUFFICIEN CY 1 tablet DAILY 1 tablet DAILY (route: oral) Med Classific ation: Endocrine spironolact one 25 mg tablet 02-07 00:00: 00 Yes [id number] FLUID RETENTION 0.5 tablet DAILY 0.5 tablet DAILY (route: oral) Med Classific ation: Cardiovas cular Therapy Agents tamsulosin 0.4 mg capsule 02-07 00:00: 00 02-21 23:59 :00 No [id number] URINARY HEALTH 1 capsule DAILY 1 capsule DAILY (route: oral) Med Classific ation: Genitouri nary Therapy acetaminoph en 325 mg tablet 2024-05 00:00: 00 Yes [id number] PAIN 2 tablet 2 TIMES DAILY 2 tablet 2 TIMES DAILY (route: oral) Med Classific ation: Analgesic , Anti-infl ammatory or Antipyret ic aspirin 81 mg tablet 2024-05 00:00: 00 Yes [id number] ANTICOAGULA NT 1 tablet DAILY 1 tablet DAILY (route: oral) Med Classific ation: Hematolog ical Agents ipratropium 0.5 mg-albutero l 3 mg (2.5 mg base)/3 mL nebulizatio n soln 2024-05 00:00: 00 Yes [id number] COPD 3 mL EVERY 6 HOURS 3 mL EVERY 6 HOURS (route: inhalation ) Med Classific ation: Respirato ry Therapy Agents Lanoxin 62.5 mcg (0.0625 mg) tablet 2024-05 00:00: 00 Yes [id number] CHF 1 tablet DAILY 1 tablet DAILY (route: oral) Med Classific ation: Cardiovas cular Therapy Agents Lasix 20 mg tablet 2024-05 00:00: 00 Yes [id number] CHF 1 tablet DAILY 1 tablet DAILY (route: oral) Med Classific ation: Cardiovas cular Therapy Agents Toprol XL 25 mg tablet,exte nded release 2024-05 00:00: 00 Yes [id number] BP 25 mg DAILY 25 mg DAILY [...] SYSTEM MANAGEMENT; RN TO ASSESS AND TEACH, THAI MASSEUR/DEPUTY JAILER TO OBSERVE AND TEACH RELATED TO ALTERED RESPIRATORY STATUS TO MINIMIZE COMPLICATIONS AND REDUCE HOSPITALIZATION. [code = SN 1WK9 PT 1WK1 OT EFFECTIVE 02/10/2025K1 RESPIRATORY SYSTEM MANAGEMENT; RN TO ASSESS AND TEACH, THAI MASSEUR/DEPUTY JAILER TO OBSERVE AND TEACH RELATED TO ALTERED RESPIRATORY STATUS TO MINIMIZE COMPLICATIONS AND REDUCE HOSPITALIZATION.] Future Scheduled Test TRACHEOSTO MY CARE MANAGEMENT; RN/THAI MASSEUR/DEPUTY JAILER TO INSTRUCT PATIENT/CAREGIVER ON CARE AND MANAGEMENT OF TRACHEOSTOMY. RN/ THAI MASSEUR/DEPUTY JAILER TO PROVIDE SKILLED TEACHING ON TRACH COLLAR SUCTIONING PRN WITH 14 FR SUCTION CATHETER PER PATIENT TRACH CARE WITH INNER CANNULA: REMOVE INNER CANNULA, CLEANSE WITH NORMAL SALINE AND OR STERILE WATER AND REINSERT NON-DISPOSABLE CANNULA SIZE OF INNER CANNULA 5 BROOKS [code = TRACHEOSTOMY CARE MANAGEMENT; RN/THAI MASSEUR/DEPUTY JAILER TO INSTRUCT PATIENT/CAREGIVER ON CARE AND MANAGEMENT OF TRACHEOSTOMY. RN/ THAI MASSEUR/DEPUTY JAILER TO PROVIDE SKILLED TEACHING ON TRACH COLLAR SUCTIONING PRN WITH 14 FR SUCTION CATHETER PER PATIENT TRACH CARE WITH INNER CANNULA: REMOVE INNER CANNULA, CLEANSE WITH NORMAL SALINE AND OR STERILE WATER AND REINSERT NON-DISPOSABLE CANNULA SIZE OF INNER CANNULA 5 BROOKS] Future Scheduled Test FALL REDUC TION MANAGEMENT; RN TO ASSESS AND OBSERVE, THAI MASSEUR/DEPUTY JAILER TO OBSERVE FALL RISK FACTORS AND EDUCATE PATIENT/CAREGIVER ON STRATEGIES TO MINIMIZE THE RISK OF FALLING. [code = FALL REDUCTION MANAGEMENT; RN TO ASSESS AND OBSERVE, THAI MASSEUR/DEPUTY JAILER TO OBSERVE FALL RISK FACTORS AND EDUCATE PATIENT/CAREGIVER ON STRATEGIES TO MINIMIZE THE RISK OF FALLING.] Future Scheduled Test ANEMIA MAN AGEMENT; RN TO ASSESS AND TEACH, DEPUTY JAILER/THAI MASSEUR TO OBSERVE AND TEACH AND PROVIDE EDUCATION ON ANEMIA. [code = ANEMIA MANAGEMENT; RN TO ASSESS AND TEACH, DEPUTY JAILER/THAI MASSEUR TO OBSERVE AND TEACH AND PROVIDE EDUCATION ON ANEMIA.] Future Scheduled Test RN TO OBSE RVE, ASSESS, EVALUATE, AND DEVELOP AN INDIVIDUALIZED PLAN OF CARE. AGENCY MAY ACCEPT ORDERS FROM CONSULTING PHYSICIANS RN TO OBSERVE AND ASSESS, THAI MASSEUR/DEPUTY JAILER TO OBSERVE FOR RISK FOR FALLS AND INSTRUCT IN FALL PREVENTION, HOME SAFETY, MEDICATION MANAGEMENT, INFECTION PREVENTION, AND NUTRITION MANAGEMENT. RN/THAI MASSEUR/DEPUTY JAILER NURSE MAY PERFORM O2 SATURATION LEVEL ON ADMISSION AND PRN FOR RN TO ASSESS/THAI MASSEUR TO OBSERVE PATIENT, WITH NOTIFICATION TO THE PHYSICIAN IF SATURATION IS 90% IN THE ABSENCE OF MORE SPECIFIC PARAMETERS FROM THE PHYSICIAN. AGENCY MAY PERFORM A RESUMPTION OF CARE VISIT FOLLOWING ANY HOSPITAL ADMISSION. RN/THAI MASSEUR/DEPUTY JAILER TO MONITOR CO-MORBID CONDITIONS LISTED ON THE PLAN OF CARE AND ANY NEW CONDITIONS THAT PRESENT THEMSELVES DURING THIS EPISODE TO IDENTIFY CHANGES AND INTERVENE TO MINIMIZE COMPLICATIONS. [code = RN TO OBSERVE, ASSESS, EVALUATE, AND DEVELOP AN INDIVIDUALIZED PLAN OF CARE. AGENCY MAY ACCEPT ORDERS FROM CONSULTING PHYSICIANS RN TO OBSERVE AND ASSESS, THAI MASSEUR/DEPUTY JAILER TO OBSERVE FOR RISK FOR FALLS AND INSTRUCT IN FALL PREVENTION, HOME SAFETY, MEDICATION MANAGEMENT, INFECTION PREVENTION, AND NUTRITION MANAGEMENT. RN/THAI MASSEUR/DEPUTY JAILER NURSE MAY PERFORM O2 SATURATION LEVEL ON ADMISSION AND PRN FOR RN TO ASSESS/THAI MASSEUR TO OBSERVE PATIENT, WITH NOTIFICATION TO THE PHYSICIAN IF SATURATION IS 90% IN THE ABSENCE OF MORE SPECIFIC PARAMETERS FROM THE PHYSICIAN. AGENCY MAY PERFORM A RESUMPTION OF CARE VISIT FOLLOWING ANY HOSPITAL ADMISSION. RN/THAI MASSEUR/DEPUTY JAILER TO MONITOR CO-MORBID CONDITIONS LISTED ON THE PLAN OF CARE AND ANY NEW CONDITIONS THAT PRESENT THEMSELVES DURING THIS EPISODE TO IDENTIFY CHANGES AND INTERVENE TO MINIMIZE COMPLICATIONS.] Future Scheduled Test PAIN MANAG EMENT; RN TO ASSESS AND TEACH, DEPUTY JAILER/THAI MASSEUR TO OBSERVE AND TEACH AND PROVIDE EDUCATION ON PAIN MANAGEMENT TECHNIQUES. [code = PAIN MANAGEMENT; RN TO ASSESS AND TEACH, DEPUTY JAILER/THAI MASSEUR TO OBSERVE AND TEACH AND PROVIDE EDUCATION ON PAIN MANAGEMENT TECHNIQUES.] Future Scheduled Test RISK FOR H OSPITALIZATION; RN TO ASSESS/TEACH, DEPUTY JAILER/THAI MASSEUR TO OBSERVE/TEACH PATIENT/CAREGIVER ON RISK FOR HOSPITALIZATION/EMERGENCY ROOM VISITS, TEACH SIGNS AND SYMPTOMS THAT PUT PATIENT AT RISK, WHEN TO NOTIFY NURSE/PHYSICIAN OF COMPLICATIONS/DECLINE, AND WHEN TO CALL 911. [code = RISK FOR HOSPITALIZATION; RN TO ASSESS/TEACH, DEPUTY JAILER/THAI MASSEUR TO OBSERVE/TEACH PATIENT/CAREGIVER ON RISK FOR HOSPITALIZATION/EMERGENCY ROOM VISITS, TEACH SIGNS AND SYMPTOMS THAT PUT PATIENT AT RISK, WHEN TO NOTIFY NURSE/PHYSICIAN OF COMPLICATIONS/DECLINE, AND WHEN TO CALL 911.] Future Scheduled Test CARDIOVASC ULAR SYSTEM; RN TO ASSESS/TEACH, THAI MASSEUR/DEPUTY JAILER TO OBSERVE/TEACH RELATED TO ALTERED CARDIOVASCULAR STATUS TO MINIMIZE COMPLICATIONS AND REDUCE HOSPITALIZATION. [code = CARDIOVASCULAR SYSTEM; RN TO ASSESS/TEACH, THAI MASSEUR/DEPUTY JAILER TO OBSERVE/TEACH RELATED TO ALTERED CARDIOVASCULAR STATUS TO MINIMIZE COMPLICATIONS AND REDUCE HOSPITALIZATION.] Future Scheduled Test HYPERTENSI ON MANAGEMENT; RN TO ASSESS AND TEACH, THAI MASSEUR/DEPUTY JAILER TO OBSERVE AND TEACH WARNING SIGNS AND SYMPTOMS TO AVOID HOSPITALIZATION. [code = HYPERTENSION MANAGEMENT; RN TO ASSESS AND TEACH, THAI MASSEUR/DEPUTY JAILER TO OBSERVE AND TEACH WARNING SIGNS AND SYMPTOMS TO AVOID HOSPITALIZATION.] Future Scheduled Test HEART FAIL URE MONITORING RN/DEPUTY JAILER/THAI MASSEUR TO MONITOR PATIENT FOR SIGNS AND SYMPTOMS OF HEART FAILURE EXACERBATION, MONITOR FOR ADHERENCE WITH MEDICATION AND HEART FAILURE MANAGEMENT REGIMEN. [code = HEART FAILURE MONITORING RN/DEPUTY JAILER/THAI MASSEUR TO MONITOR PATIENT FOR SIGNS AND SYMPTOMS OF HEART FAILURE EXACERBATION, MONITOR FOR ADHERENCE WITH MEDICATION AND HEART FAILURE MANAGEMENT REGIMEN.] Future Scheduled Test DIABETES M ONITORING RN/DEPUTY JAILER/THAI MASSEUR TO MONITOR BLOOD SUGAR LOG FOR BLOOD SUGAR READINGS THAT ARE BEING CHECKED BY PATIENT, CAREGIVER NEEDED FOR SIGNS AND SYMPTOMS OF HYPER/HYPOGLYCEMIA. PATIENT THERAPEUTIC BLOOD SUGAR PARAMETERS ARE 70 - 300. REPORT BLOOD SUGARS OUT OF RANGE TO PHYSICIAN. NURSE MAY PERFORM FINGER STICK BLOOD GLUCOSE NEEDED FOR SIGNS AND SYMPTOMS OF HYPO AND HYPERGLYCEMIA. RN/DEPUTY JAILER/THAI MASSEUR TO MONITOR ADHERENCE OF PATIENT/CAREGIVER PERFORMING DIABETIC FOOT CARE AND MAY PERFORM DIABETIC FOOT CARE PRN. RN/DEPUTY JAILER/THAI MASSEUR TO MONITOR FOR ADHERENCE TO DIABETIC SELF-CARE AND MANAGEMENT INCLUDING MEDICATIONS. [code = DIABETES MONITORING RN/DEPUTY JAILER/THAI MASSEUR TO MONITOR BLOOD SUGAR LOG FOR BLOOD SUGAR READINGS THAT ARE BEING CHECKED BY PATIENT, CAREGIVER NEEDED FOR SIGNS AND SYMPTOMS OF HYPER/HYPOGLYCEMIA. PATIENT THERAPEUTIC BLOOD SUGAR PARAMETERS ARE 70 - 300. REPORT BLOOD SUGARS OUT OF RANGE TO PHYSICIAN. NURSE MAY PERFORM FINGER STICK BLOOD GLUCOSE NEEDED FOR SIGNS AND SYMPTOMS OF HYPO AND HYPERGLYCEMIA. RN/DEPUTY JAILER/THAI MASSEUR TO MONITOR ADHERENCE OF PATIENT/CAREGIVER PERFORMING DIABETIC FOOT CARE AND MAY PERFORM DIABETIC FOOT CARE PRN. RN/DEPUTY JAILER/THAI MASSEUR TO MONITOR FOR ADHERENCE TO DIABETIC SELF-CARE AND MANAGEMENT INCLUDING MEDICATIONS.] Future Scheduled Test HYPOTENSIO N MANAGEMENT; RN TO ASSESS AND TEACH/ THAI MASSEUR /DEPUTY JAILER TO OBSERVE AND TEACH WARNING SIGNS AND SYMPTOMS TO AVOID HOSPITALIZATION. [code = HYPOTENSION MANAGEMENT; RN TO ASSESS AND TEACH/ THAI MASSEUR /DEPUTY JAILER TO OBSERVE AND TEACH WARNING SIGNS AND SYMPTOMS TO AVOID HOSPITALIZATION.] Future Scheduled Test ARRHYTHMIA MANAGEMENT; RN TO ASSESS AND TEACH, THAI MASSEUR/DEPUTY JAILER TO OBSERVE AND TEACH WARNING SIGNS AND SYMPTOMS TO AVOID HOSPITALIZATION. [code = ARRHYTHMIA MANAGEMENT; RN TO ASSESS AND TEACH, THAI MASSEUR/DEPUTY JAILER TO OBSERVE AND TEACH WARNING SIGNS AND SYMPTOMS TO AVOID HOSPITALIZATION.] Future Scheduled Test MEDICATION MANAGEMENT; RN/THAI MASSEUR/DEPUTY JAILER TO REVIEW MEDICATIONS FOR INTERACTIONS, EFFECTIVENESS OF DRUG THERAPY, AND SIGNS/SYMPTOMS OF ADVERSE REACTIONS. MAY INSTRUCT AND REINFORCE MEDICATION TEACHING RELATED TO THE USE OF MEDICATIONS, DOSAGE, FREQUENCY, PURPOSE, SIDE EFFECTS, AND TO REPORT COMPLICATIONS. [code = MEDICATION MANAGEMENT; RN/THAI MASSEUR/DEPUTY JAILER TO REVIEW MEDICATIONS FOR INTERACTIONS, EFFECTIVENESS OF [...] EVAL UATE, OBSERVE / ASSESS, AND MONITOR, MERCHANDISING STOCK ASSOCIATE TO OBSERVE AND MONITOR, PROVIDE SKILLED THERAPEUTIC INTERVENTION, ACTIVITY, EDUCATION, AND TRAINING TO ADDRESS GEN. WEAKNESS, POOR OVERALL ACTIVITY TOLERANCE, AND FUNCTIONAL LIMITATIONS IMPACTING SAFETY AND INDEPENDENCE. BED MOBILITY (PT/MERCHANDISING STOCK ASSOCIATE) PT/MERCHANDISING STOCK ASSOCIATE TO PROVIDE GAIT TRAINING FOR IMPROVED MOBILITY AND /OR TO NORMALIZE GAIT PATTERN THERAPEUTIC EXERCISES AND ESTABLISHING A HOME EXERCISE PROGRAM (PT/MERCHANDISING STOCK ASSOCIATE) PT/MERCHANDISING STOCK ASSOCIATE TO PROVIDE STAIR TRAINING PT / MERCHANDISING STOCK ASSOCIATE TO MONITOR AND EDUCATE ON OXYGEN SATURATION DURING ADLS/IADLS, NOTIFY PHYSICIAN AND/OR THE RN CLINICAL GENERAL MAINTENANCE HELPER FOR PHYSICIAN NOTIFICATION AND IF O2 SATS BELOW PHYSICIAN ORDERED PARAMETERS AFTER 10 MIN OF REST PT / MERCHANDISING STOCK ASSOCIATE TO OBSERVE FOR EARLY SIGNS AND SYMPTOMS OF DEPRESSION OR DEPRESSION GETTING WORSE AND TO EDUCATE ON HOW TO FIND HELP. PT / MERCHANDISING STOCK ASSOCIATE MAY EDUCATE ON PAIN MANAGEMENT CLINICALLY INDICATED, INCLUDING NON-PHARMACOLOGICAL PAIN REDUCTION TECHNIQUES PT / MERCHANDISING STOCK ASSOCIATE TO MONITOR FOR HYPO/HYPERGLYCEMIA AND CONDUCT ROUTINE FOOT INSPECTIONS. RECORD PATIENT REPORTED BLOOD SUGAR LEVELS AND NOTIFY PHYSICIAN AND/OR THE RN CLINICAL GENERAL MAINTENANCE HELPER FOR PHYSICIAN NOTIFICATION IF BLOOD SUGAR LEVELS ARE OUTSIDE ORDERED PARAMETERS. TEACH PATIENT/CAREGIVER ON DAILY FOOT INSPECTIONS PT / MERCHANDISING STOCK ASSOCIATE TO INSTRUCT PATIENT/CAREGIVER ON RISK FOR HOSPITALIZATION/EMERGENCY ROOM VISITS, TEACH SIGNS AND SYMPTOMS THAT PUT PATIENT AT RISK, WHEN TO NOTIFY NURSE/PHYSICIAN OF COMPLICATIONS/DECLINE, AND WHEN TO CALL 911. PT/MERCHANDISING STOCK ASSOCIATE TO EDUCATE ON ARTHRITIS SELF-MANAGEMENT PT / MERCHANDISING STOCK ASSOCIATE TO EDUCATE ON HEART FAILURE SELF-MANAGEMENT PT / MERCHANDISING STOCK ASSOCIATE TO EDUCATE ON HYPERTENSION SELF-MANAGEMENT PT TO ASSESS / MERCHANDISING STOCK ASSOCIATE TO MONITOR CARDIO/RESPIRATORY SYSTEM; AND NOTIFY THE PHYSICIAN AND/OR THE RN CLINICAL GENERAL MAINTENANCE HELPER FOR PHYSICIAN NOTIFICATION FOR EARLY SIGNS AND SYMPTOMS OF EXACERBATION OR DETERIORATION. PT / MERCHANDISING STOCK ASSOCIATE TO EDUCATE ON ATRIAL FIBRILLATION SELF-MANAGEMENT. PT / MERCHANDISING STOCK ASSOCIATE TO EDUCATE ON PNEUMONIA / ASPIRATION PNEUMONIA SELF-MANAGEMENT. PT/MERCHANDISING STOCK ASSOCIATE TO IDENTIFY FALL RISK FACTORS; EDUCATE THE PATIENT/CAREGIVER ON WAYS TO REDUCE FALL RISK FACTORS AND ESTABLISH HOME EXERCISE PROGRAM TO MINIMIZE FALL RISK. MAY TEACH THE PATIENT FLOOR RECOVERY WHEN CLINICALLY APPROPRIATE [code = PT TO EVALUATE, OBSERVE / ASSESS, AND MONITOR, MERCHANDISING STOCK ASSOCIATE TO OBSERVE AND MONITOR, PROVIDE SKILLED THERAPEUTIC INTERVENTION, ACTIVITY, EDUCATION, AND TRAINING TO ADDRESS GEN. WEAKNESS, POOR OVERALL ACTIVITY TOLERANCE, AND FUNCTIONAL LIMITATIONS IMPACTING SAFETY AND INDEPENDENCE. BED MOBILITY (PT/MERCHANDISING STOCK ASSOCIATE) PT/MERCHANDISING STOCK ASSOCIATE TO PROVIDE GAIT TRAINING FOR IMPROVED MOBILITY AND /OR TO NORMALIZE GAIT PATTERN THERAPEUTIC EXERCISES AND ESTABLISHING A HOME EXERCISE PROGRAM (PT/MERCHANDISING STOCK ASSOCIATE) PT/MERCHANDISING STOCK ASSOCIATE TO PROVIDE STAIR TRAINING PT / MERCHANDISING STOCK ASSOCIATE TO MONITOR AND EDUCATE ON OXYGEN SATURATION DURING ADLS/IADLS, NOTIFY PHYSICIAN AND/OR THE RN CLINICAL GENERAL MAINTENANCE HELPER FOR PHYSICIAN NOTIFICATION AND IF O2 SATS BELOW PHYSICIAN ORDERED PARAMETERS AFTER 10 MIN OF REST PT / MERCHANDISING STOCK ASSOCIATE TO OBSERVE FOR EARLY SIGNS AND SYMPTOMS OF DEPRESSION OR DEPRESSION GETTING WORSE AND TO EDUCATE ON HOW TO FIND HELP. PT / MERCHANDISING STOCK ASSOCIATE MAY EDUCATE ON PAIN MANAGEMENT CLINICALLY INDICATED, INCLUDING NON-PHARMACOLOGICAL PAIN REDUCTION TECHNIQUES PT / MERCHANDISING STOCK ASSOCIATE TO MONITOR FOR HYPO/HYPERGLYCEMIA AND CONDUCT ROUTINE FOOT INSPECTIONS. RECORD PATIENT REPORTED BLOOD SUGAR LEVELS AND NOTIFY PHYSICIAN AND/OR THE RN CLINICAL GENERAL MAINTENANCE HELPER FOR PHYSICIAN NOTIFICATION IF BLOOD SUGAR LEVELS ARE OUTSIDE ORDERED PARAMETERS. TEACH PATIENT/CAREGIVER ON DAILY FOOT INSPECTIONS PT / MERCHANDISING STOCK ASSOCIATE TO INSTRUCT PATIENT/CAREGIVER ON RISK FOR HOSPITALIZATION/EMERGENCY ROOM VISITS, TEACH SIGNS AND SYMPTOMS THAT PUT PATIENT AT RISK, WHEN TO NOTIFY NURSE/PHYSICIAN OF COMPLICATIONS/DECLINE, AND WHEN TO CALL 911. PT/MERCHANDISING STOCK ASSOCIATE TO EDUCATE ON ARTHRITIS SELF-MANAGEMENT PT / MERCHANDISING STOCK ASSOCIATE TO EDUCATE ON HEART FAILURE SELF-MANAGEMENT PT / MERCHANDISING STOCK ASSOCIATE TO EDUCATE ON HYPERTENSION SELF-MANAGEMENT PT TO ASSESS / MERCHANDISING STOCK ASSOCIATE TO MONITOR CARDIO/RESPIRATORY SYSTEM; AND NOTIFY THE PHYSICIAN AND/OR THE RN CLINICAL GENERAL MAINTENANCE HELPER FOR PHYSICIAN NOTIFICATION FOR EARLY SIGNS AND SYMPTOMS OF EXACERBATION OR DETERIORATION. PT / MERCHANDISING STOCK ASSOCIATE TO EDUCATE ON ATRIAL FIBRILLATION SELF-MANAGEMENT. PT / MERCHANDISING STOCK ASSOCIATE TO EDUCATE ON PNEUMONIA / ASPIRATION PNEUMONIA SELF-MANAGEMENT. PT/MERCHANDISING STOCK ASSOCIATE TO IDENTIFY FALL RISK FACTORS; EDUCATE THE PATIENT/CAREGIVER ON WAYS TO REDUCE FALL RISK FACTORS AND ESTABLISH HOME EXERCISE PROGRAM TO MINIMIZE FALL RISK. MAY TEACH THE PATIENT FLOOR RECOVERY WHEN CLINICALLY APPROPRIATE] Future Scheduled Test AGENCY MAY PERFORM A RESUMPTION OF CARE VISIT FOLLOWING ANY HOSPITAL ADMISSION. OT TO EVALUATE, OBSERVE / ASSESS, AND MONITOR, PHOTOGRAPHERS' MODEL TO OBSERVE AND MONITOR, PROVIDE SKILLED THERAPEUTIC INTERVENTION, ACTIVITY, EDUCATION, AND TRAINING TO ADDRESS SAFETY AND INDEPENDENCE OF ADLS AND FUNCTIONAL TRANSFERS IN HOME ENVIRONMENT. ACTIVITIES OF DAILY LIVING (OT/MARIANNE) THERAPEUTIC EXERCISE (OT/PHOTOGRAPHERS' MODEL) ENERGY CONSERVATION/ACTIVITY DEMAND (OT/PHOTOGRAPHERS' MODEL) OT/PHOTOGRAPHERS' MODEL TO MONITOR AND EDUCATE ON OXYGEN SATURATION DURING ADLS/IADLS, NOTIFY PHYSICIAN AND/OR THE RN CLINICAL GENERAL MAINTENANCE HELPER FOR PHYSICIAN NOTIFICATION AND IF O2 SATS BELOW 90% AFTER 10 MIN OF REST. OT / PHOTOGRAPHERS' MODEL TO IDENTIFY FALL RISK FACTORS; EDUCATE THE PATIENT/CAREGIVER ON WAYS TO REDUCE FALL RISK FACTORS AND ESTABLISH HOME EXERCISE PROGRAM TO MINIMIZE FALL RISK. MAY TEACH THE PATIENT FLOOR RECOVERY WHEN CLINICALLY APPROPRIATE. OT/PHOTOGRAPHERS' MODEL TO EDUCATE ON HYPERTENSION SELF-MANAGEMENT OT/MARIANNE TO EDUCATE ON ATRIAL FIBRILLATION SELF-MANAGEMENT. [code = AGENCY MAY PERFORM A RESUMPTION OF CARE VISIT FOLLOWING ANY HOSPITAL ADMISSION. OT TO EVALUATE, OBSERVE / ASSESS, AND MONITOR, PHOTOGRAPHERS' MODEL TO OBSERVE AND MONITOR, PROVIDE SKILLED THERAPEUTIC INTERVENTION, ACTIVITY, EDUCATION, AND TRAINING TO ADDRESS SAFETY AND INDEPENDENCE OF ADLS AND FUNCTIONAL TRANSFERS IN HOME ENVIRONMENT. ACTIVITIES OF DAILY LIVING (OT/MARIANNE) THERAPEUTIC EXERCISE (OT/PHOTOGRAPHERS' MODEL) ENERGY CONSERVATION/ACTIVITY DEMAND (OT/MARIANNE) OT/PHOTOGRAPHERS' MODEL TO MONITOR AND EDUCATE ON OXYGEN SATURATION DURING ADLS/IADLS, NOTIFY PHYSICIAN AND/OR THE RN CLINICAL GENERAL MAINTENANCE HELPER FOR PHYSICIAN NOTIFICATION AND IF O2 SATS BELOW 90% AFTER 10 MIN OF REST. OT / MARIANNE TO IDENTIFY FALL RISK FACTORS; EDUCATE THE PATIENT/CAREGIVER ON WAYS TO REDUCE FALL RISK FACTORS AND ESTABLISH HOME EXERCISE PROGRAM TO MINIMIZE FALL RISK. MAY TEACH THE PATIENT FLOOR RECOVERY WHEN CLINICALLY APPROPRIATE. OT/PHOTOGRAPHERS' MODEL TO EDUCATE ON HYPERTENSION SELF-MANAGEMENT OT/MARIANNE TO [...] OF SKIN INTEGRITY ISSUES FROM SBA TO MN WITHIN 2 WKS. PT STG: PATIENT WILL [...] TO SAFELY NEGOTIATE STAIRS FROM S[place] TO MN WITH 2 STEPS W/O HANDRAIL VIA FRONT [...] NEW ADMISSION [facility] [id number]
--- OUTSIDE RECORDS SUMMARY | 2025-04-06 18:00 | XMS_ITS | Clinical Summary ---
Author Organization Unknown Care Team Providers Care Hose Wrapper Name Role Phone DIGNA ARIEL, ESTRELLA Unavailable Unava dinora STOKES RN, FRANKIE Unavailable Unavailabl e KARI PT, DIDI Unavailable Unavailable NAT SEGMENTAL WALL INSTALLER, GAUDENCIO Unavailable Unavailabl e RADHA OT, ROLANDO Unavailable Unavailable JOANNE STEVEN, HATTIE Unavailable Unavailable Payers Payer Name Policy Type Policy Number Effective Date Expira tion Date MEDICARE.[facility] [id number] Problems Condition Name Condition Details Condition Category Status Onset Date Resolution Date Last Treatment Date Treating Clinician Comments 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 02-07 [...] OF PNEUMONIA (RECURRENT) Active 02-07 00:00: 00 CRUSHER (CURRENT) USE OF SYSTEMIC STEROIDS Active 02-07 [...] 80 mg tablet 02-07 00:00: 00 Yes [id number] CHOLESTEROL 1 tablet DAILY 1 tablet DAILY (route: oral) Med Classific ation: Cardiovas cular Therapy Agents digoxin 125 mcg (0.125 mg) tablet 02-07 00:00: 00 02-21 23:59 :00 No [id number] HEART RHYTHM 1 tablet DAILY 1 tablet DAILY (route: oral) Med Classific ation: Cardiovas cular Therapy Agents escitalopra m 10 mg tablet 02-07 00:00: 00 Yes [id number] MOOD 1 tablet DAILY 1 tablet DAILY (route: oral) Med Classific ation: Central Nervous System Agents ezetimibe 10 mg tablet 02-07 00:00: 00 Yes [id number] CHOLESTEROL 1 tablet DAILY 1 tablet DAILY (route: oral) Med Classific ation: Cardiovas cular Therapy Agents metoprolol succinate ER 25 mg tablet,exte nded release 24 hr 02-07 00:00: 00 02-21 23:59 :00 No [id number] BLOOD PRESSURE 0.5 tablet DAILY 0.5 tablet DAILY (route: oral) Med Classific ation: Cardiovas cular Therapy Agents pantoprazol e 40 mg tablet,joão yed release 02-07 00:00: 00 02-21 23:59 :00 No [id number] STOMACH ACID 1 tablet DAILY 1 tablet DAILY (route: oral) Med Classific ation: Gastroint estinal Therapy Agents prednisone 5 mg tablet 02-07 00:00: 00 Yes [id number] ADRENAL INSUFFICIEN CY 1 tablet DAILY 1 tablet DAILY (route: oral) Med Classific ation: Endocrine spironolact one 25 mg tablet 02-07 00:00: 00 Yes [id number] FLUID RETENTION 0.5 tablet DAILY 0.5 tablet DAILY (route: oral) Med Classific ation: Cardiovas cular Therapy Agents tamsulosin 0.4 mg capsule 02-07 00:00: 00 02-21 23:59 :00 No [id number] URINARY HEALTH 1 capsule DAILY 1 capsule DAILY (route: oral) Med Classific ation: Genitouri nary Therapy acetaminoph en 325 mg tablet 2024-05 00:00: 00 Yes [id number] PAIN 2 tablet 2 TIMES DAILY 2 tablet 2 TIMES DAILY (route: oral) Med Classific ation: Analgesic , Anti-infl ammatory or Antipyret ic aspirin 81 mg tablet 2024-05 00:00: 00 Yes [id number] ANTICOAGULA NT 1 tablet DAILY 1 tablet DAILY (route: oral) Med Classific ation: Hematolog ical Agents ipratropium 0.5 mg-albutero l 3 mg (2.5 mg base)/3 mL nebulizatio n soln 2024-05 00:00: 00 Yes [id number] COPD 3 mL EVERY 6 HOURS 3 mL EVERY 6 HOURS (route: inhalation ) Med Classific ation: Respirato ry Therapy Agents Lanoxin 62.5 mcg (0.0625 mg) tablet 2024-05 00:00: 00 Yes [id number] CHF 1 tablet DAILY 1 tablet DAILY (route: oral) Med Classific ation: Cardiovas cular Therapy Agents Lasix 20 mg tablet 2024-05 00:00: 00 Yes [id number] CHF 1 tablet DAILY 1 tablet DAILY (route: oral) Med Classific ation: Cardiovas cular Therapy Agents Toprol XL 25 mg tablet,exte nded release 2024-05 00:00: 00 Yes [id number] BP 25 mg DAILY 25 mg DAILY [...] SYSTEM MANAGEMENT; RN TO ASSESS AND TEACH, AUDIT MANAGER/TILE HELPER TO OBSERVE AND TEACH RELATED TO ALTERED RESPIRATORY STATUS TO MINIMIZE COMPLICATIONS AND REDUCE HOSPITALIZATION. [code = SN 1WK9 PT 1WK1 OT EFFECTIVE 02/10/2025K1 RESPIRATORY SYSTEM MANAGEMENT; RN TO ASSESS AND TEACH, AUDIT MANAGER/TILE HELPER TO OBSERVE AND TEACH RELATED TO ALTERED RESPIRATORY STATUS TO MINIMIZE COMPLICATIONS AND REDUCE HOSPITALIZATION.] Future Scheduled Test TRACHEOSTO MY CARE MANAGEMENT; RN/AUDIT MANAGER/TILE HELPER TO INSTRUCT PATIENT/CAREGIVER ON CARE AND MANAGEMENT OF TRACHEOSTOMY. RN/ AUDIT MANAGER/TILE HELPER TO PROVIDE SKILLED TEACHING ON TRACH COLLAR SUCTIONING PRN WITH 14 FR SUCTION CATHETER PER PATIENT TRACH CARE WITH INNER CANNULA: REMOVE INNER CANNULA, CLEANSE WITH NORMAL SALINE AND OR STERILE WATER AND REINSERT NON-DISPOSABLE CANNULA SIZE OF INNER CANNULA 5 BROOKS [code = TRACHEOSTOMY CARE MANAGEMENT; RN/AUDIT MANAGER/TILE HELPER TO INSTRUCT PATIENT/CAREGIVER ON CARE AND MANAGEMENT OF TRACHEOSTOMY. RN/ AUDIT MANAGER/TILE HELPER TO PROVIDE SKILLED TEACHING ON TRACH COLLAR SUCTIONING PRN WITH 14 FR SUCTION CATHETER PER PATIENT TRACH CARE WITH INNER CANNULA: REMOVE INNER CANNULA, CLEANSE WITH NORMAL SALINE AND OR STERILE WATER AND REINSERT NON-DISPOSABLE CANNULA SIZE OF INNER CANNULA 5 BROOKS] Future Scheduled Test FALL REDUC TION MANAGEMENT; RN TO ASSESS AND OBSERVE, AUDIT MANAGER/TILE HELPER TO OBSERVE FALL RISK FACTORS AND EDUCATE PATIENT/CAREGIVER ON STRATEGIES TO MINIMIZE THE RISK OF FALLING. [code = FALL REDUCTION MANAGEMENT; RN TO ASSESS AND OBSERVE, AUDIT MANAGER/TILE HELPER TO OBSERVE FALL RISK FACTORS AND EDUCATE PATIENT/CAREGIVER ON STRATEGIES TO MINIMIZE THE RISK OF FALLING.] Future Scheduled Test ANEMIA MAN AGEMENT; RN TO ASSESS AND TEACH, TILE HELPER/AUDIT MANAGER TO OBSERVE AND TEACH AND PROVIDE EDUCATION ON ANEMIA. [code = ANEMIA MANAGEMENT; RN TO ASSESS AND TEACH, TILE HELPER/AUDIT MANAGER TO OBSERVE AND TEACH AND PROVIDE EDUCATION ON ANEMIA.] Future Scheduled Test RN TO OBSE RVE, ASSESS, EVALUATE, AND DEVELOP AN INDIVIDUALIZED PLAN OF CARE. AGENCY MAY ACCEPT ORDERS FROM CONSULTING PHYSICIANS RN TO OBSERVE AND ASSESS, AUDIT MANAGER/TILE HELPER TO OBSERVE FOR RISK FOR FALLS AND INSTRUCT IN FALL PREVENTION, HOME SAFETY, MEDICATION MANAGEMENT, INFECTION PREVENTION, AND NUTRITION MANAGEMENT. RN/AUDIT MANAGER/TILE HELPER NURSE MAY PERFORM O2 SATURATION LEVEL ON ADMISSION AND PRN FOR RN TO ASSESS/AUDIT MANAGER TO OBSERVE PATIENT, WITH NOTIFICATION TO THE PHYSICIAN IF SATURATION IS 90% IN THE ABSENCE OF MORE SPECIFIC PARAMETERS FROM THE PHYSICIAN. AGENCY MAY PERFORM A RESUMPTION OF CARE VISIT FOLLOWING ANY HOSPITAL ADMISSION. RN/AUDIT MANAGER/TILE HELPER TO MONITOR CO-MORBID CONDITIONS LISTED ON THE PLAN OF CARE AND ANY NEW CONDITIONS THAT PRESENT THEMSELVES DURING THIS EPISODE TO IDENTIFY CHANGES AND INTERVENE TO MINIMIZE COMPLICATIONS. [code = RN TO OBSERVE, ASSESS, EVALUATE, AND DEVELOP AN INDIVIDUALIZED PLAN OF CARE. AGENCY MAY ACCEPT ORDERS FROM CONSULTING PHYSICIANS RN TO OBSERVE AND ASSESS, AUDIT MANAGER/TILE HELPER TO OBSERVE FOR RISK FOR FALLS AND INSTRUCT IN FALL PREVENTION, HOME SAFETY, MEDICATION MANAGEMENT, INFECTION PREVENTION, AND NUTRITION MANAGEMENT. RN/AUDIT MANAGER/TILE HELPER NURSE MAY PERFORM O2 SATURATION LEVEL ON ADMISSION AND PRN FOR RN TO ASSESS/AUDIT MANAGER TO OBSERVE PATIENT, WITH NOTIFICATION TO THE PHYSICIAN IF SATURATION IS 90% IN THE ABSENCE OF MORE SPECIFIC PARAMETERS FROM THE PHYSICIAN. AGENCY MAY PERFORM A RESUMPTION OF CARE VISIT FOLLOWING ANY HOSPITAL ADMISSION. RN/AUDIT MANAGER/TILE HELPER TO MONITOR CO-MORBID CONDITIONS LISTED ON THE PLAN OF CARE AND ANY NEW CONDITIONS THAT PRESENT THEMSELVES DURING THIS EPISODE TO IDENTIFY CHANGES AND INTERVENE TO MINIMIZE COMPLICATIONS.] Future Scheduled Test PAIN MANAG EMENT; RN TO ASSESS AND TEACH, TILE HELPER/AUDIT MANAGER TO OBSERVE AND TEACH AND PROVIDE EDUCATION ON PAIN MANAGEMENT TECHNIQUES. [code = PAIN MANAGEMENT; RN TO ASSESS AND TEACH, TILE HELPER/AUDIT MANAGER TO OBSERVE AND TEACH AND PROVIDE EDUCATION ON PAIN MANAGEMENT TECHNIQUES.] Future Scheduled Test RISK FOR H OSPITALIZATION; RN TO ASSESS/TEACH, TILE HELPER/AUDIT MANAGER TO OBSERVE/TEACH PATIENT/CAREGIVER ON RISK FOR HOSPITALIZATION/EMERGENCY ROOM VISITS, TEACH SIGNS AND SYMPTOMS THAT PUT PATIENT AT RISK, WHEN TO NOTIFY NURSE/PHYSICIAN OF COMPLICATIONS/DECLINE, AND WHEN TO CALL 911. [code = RISK FOR HOSPITALIZATION; RN TO ASSESS/TEACH, TILE HELPER/AUDIT MANAGER TO OBSERVE/TEACH PATIENT/CAREGIVER ON RISK FOR HOSPITALIZATION/EMERGENCY ROOM VISITS, TEACH SIGNS AND SYMPTOMS THAT PUT PATIENT AT RISK, WHEN TO NOTIFY NURSE/PHYSICIAN OF COMPLICATIONS/DECLINE, AND WHEN TO CALL 911.] Future Scheduled Test CARDIOVASC ULAR SYSTEM; RN TO ASSESS/TEACH, AUDIT MANAGER/TILE HELPER TO OBSERVE/TEACH RELATED TO ALTERED CARDIOVASCULAR STATUS TO MINIMIZE COMPLICATIONS AND REDUCE HOSPITALIZATION. [code = CARDIOVASCULAR SYSTEM; RN TO ASSESS/TEACH, AUDIT MANAGER/TILE HELPER TO OBSERVE/TEACH RELATED TO ALTERED CARDIOVASCULAR STATUS TO MINIMIZE COMPLICATIONS AND REDUCE HOSPITALIZATION.] Future Scheduled Test HYPERTENSI ON MANAGEMENT; RN TO ASSESS AND TEACH, AUDIT MANAGER/TILE HELPER TO OBSERVE AND TEACH WARNING SIGNS AND SYMPTOMS TO AVOID HOSPITALIZATION. [code = HYPERTENSION MANAGEMENT; RN TO ASSESS AND TEACH, AUDIT MANAGER/TILE HELPER TO OBSERVE AND TEACH WARNING SIGNS AND SYMPTOMS TO AVOID HOSPITALIZATION.] Future Scheduled Test HEART FAIL URE MONITORING RN/TILE HELPER/AUDIT MANAGER TO MONITOR PATIENT FOR SIGNS AND SYMPTOMS OF HEART FAILURE EXACERBATION, MONITOR FOR ADHERENCE WITH MEDICATION AND HEART FAILURE MANAGEMENT REGIMEN. [code = HEART FAILURE MONITORING RN/TILE HELPER/AUDIT MANAGER TO MONITOR PATIENT FOR SIGNS AND SYMPTOMS OF HEART FAILURE EXACERBATION, MONITOR FOR ADHERENCE WITH MEDICATION AND HEART FAILURE MANAGEMENT REGIMEN.] Future Scheduled Test DIABETES M ONITORING RN/TILE HELPER/AUDIT MANAGER TO MONITOR BLOOD SUGAR LOG FOR BLOOD SUGAR READINGS THAT ARE BEING CHECKED BY PATIENT, CAREGIVER NEEDED FOR SIGNS AND SYMPTOMS OF HYPER/HYPOGLYCEMIA. PATIENT THERAPEUTIC BLOOD SUGAR PARAMETERS ARE 70 - 300. REPORT BLOOD SUGARS OUT OF RANGE TO PHYSICIAN. NURSE MAY PERFORM FINGER STICK BLOOD GLUCOSE NEEDED FOR SIGNS AND SYMPTOMS OF HYPO AND HYPERGLYCEMIA. RN/TILE HELPER/AUDIT MANAGER TO MONITOR ADHERENCE OF PATIENT/CAREGIVER PERFORMING DIABETIC FOOT CARE AND MAY PERFORM DIABETIC FOOT CARE PRN. RN/TILE HELPER/AUDIT MANAGER TO MONITOR FOR ADHERENCE TO DIABETIC SELF-CARE AND MANAGEMENT INCLUDING MEDICATIONS. [code = DIABETES MONITORING RN/TILE HELPER/AUDIT MANAGER TO MONITOR BLOOD SUGAR LOG FOR BLOOD SUGAR READINGS THAT ARE BEING CHECKED BY PATIENT, CAREGIVER NEEDED FOR SIGNS AND SYMPTOMS OF HYPER/HYPOGLYCEMIA. PATIENT THERAPEUTIC BLOOD SUGAR PARAMETERS ARE 70 - 300. REPORT BLOOD SUGARS OUT OF RANGE TO PHYSICIAN. NURSE MAY PERFORM FINGER STICK BLOOD GLUCOSE NEEDED FOR SIGNS AND SYMPTOMS OF HYPO AND HYPERGLYCEMIA. RN/TILE HELPER/AUDIT MANAGER TO MONITOR ADHERENCE OF PATIENT/CAREGIVER PERFORMING DIABETIC FOOT CARE AND MAY PERFORM DIABETIC FOOT CARE PRN. RN/TILE HELPER/AUDIT MANAGER TO MONITOR FOR ADHERENCE TO DIABETIC SELF-CARE AND MANAGEMENT INCLUDING MEDICATIONS.] Future Scheduled Test HYPOTENSIO N MANAGEMENT; RN TO ASSESS AND TEACH/ AUDIT MANAGER /TILE HELPER TO OBSERVE AND TEACH WARNING SIGNS AND SYMPTOMS TO AVOID HOSPITALIZATION. [code = HYPOTENSION MANAGEMENT; RN TO ASSESS AND TEACH/ AUDIT MANAGER /TILE HELPER TO OBSERVE AND TEACH WARNING SIGNS AND SYMPTOMS TO AVOID HOSPITALIZATION.] Future Scheduled Test ARRHYTHMIA MANAGEMENT; RN TO ASSESS AND TEACH, AUDIT MANAGER/TILE HELPER TO OBSERVE AND TEACH WARNING SIGNS AND SYMPTOMS TO AVOID HOSPITALIZATION. [code = ARRHYTHMIA MANAGEMENT; RN TO ASSESS AND TEACH, AUDIT MANAGER/TILE HELPER TO OBSERVE AND TEACH WARNING SIGNS AND SYMPTOMS TO AVOID HOSPITALIZATION.] Future Scheduled Test MEDICATION MANAGEMENT; RN/AUDIT MANAGER/TILE HELPER TO REVIEW MEDICATIONS FOR INTERACTIONS, EFFECTIVENESS OF DRUG THERAPY, AND SIGNS/SYMPTOMS OF ADVERSE REACTIONS. MAY INSTRUCT AND REINFORCE MEDICATION TEACHING RELATED TO THE USE OF MEDICATIONS, DOSAGE, FREQUENCY, PURPOSE, SIDE EFFECTS, AND TO REPORT COMPLICATIONS. [code = MEDICATION MANAGEMENT; RN/AUDIT MANAGER/TILE HELPER TO REVIEW MEDICATIONS FOR INTERACTIONS, EFFECTIVENESS OF [...] EVAL UATE, OBSERVE / ASSESS, AND MONITOR, SEGMENTAL WALL INSTALLER TO OBSERVE AND MONITOR, PROVIDE SKILLED THERAPEUTIC INTERVENTION, ACTIVITY, EDUCATION, AND TRAINING TO ADDRESS GEN. WEAKNESS, POOR OVERALL ACTIVITY TOLERANCE, AND FUNCTIONAL LIMITATIONS IMPACTING SAFETY AND INDEPENDENCE. BED MOBILITY (PT/SEGMENTAL WALL INSTALLER) PT/SEGMENTAL WALL INSTALLER TO PROVIDE GAIT TRAINING FOR IMPROVED MOBILITY AND /OR TO NORMALIZE GAIT PATTERN THERAPEUTIC EXERCISES AND ESTABLISHING A HOME EXERCISE PROGRAM (PT/SEGMENTAL WALL INSTALLER) PT/SEGMENTAL WALL INSTALLER TO PROVIDE STAIR TRAINING PT / SEGMENTAL WALL INSTALLER TO MONITOR AND EDUCATE ON OXYGEN SATURATION DURING ADLS/IADLS, NOTIFY PHYSICIAN AND/OR THE RN CLINICAL ASBESTOS CLOTH INSPECTOR FOR PHYSICIAN NOTIFICATION AND IF O2 SATS BELOW PHYSICIAN ORDERED PARAMETERS AFTER 10 MIN OF REST PT / SEGMENTAL WALL INSTALLER TO OBSERVE FOR EARLY SIGNS AND SYMPTOMS OF DEPRESSION OR DEPRESSION GETTING WORSE AND TO EDUCATE ON HOW TO FIND HELP. PT / SEGMENTAL WALL INSTALLER MAY EDUCATE ON PAIN MANAGEMENT CLINICALLY INDICATED, INCLUDING NON-PHARMACOLOGICAL PAIN REDUCTION TECHNIQUES PT / SEGMENTAL WALL INSTALLER TO MONITOR FOR HYPO/HYPERGLYCEMIA AND CONDUCT ROUTINE FOOT INSPECTIONS. RECORD PATIENT REPORTED BLOOD SUGAR LEVELS AND NOTIFY PHYSICIAN AND/OR THE RN CLINICAL ASBESTOS CLOTH INSPECTOR FOR PHYSICIAN NOTIFICATION IF BLOOD SUGAR LEVELS ARE OUTSIDE ORDERED PARAMETERS. TEACH PATIENT/CAREGIVER ON DAILY FOOT INSPECTIONS PT / SEGMENTAL WALL INSTALLER TO INSTRUCT PATIENT/CAREGIVER ON RISK FOR HOSPITALIZATION/EMERGENCY ROOM VISITS, TEACH SIGNS AND SYMPTOMS THAT PUT PATIENT AT RISK, WHEN TO NOTIFY NURSE/PHYSICIAN OF COMPLICATIONS/DECLINE, AND WHEN TO CALL 911. PT/SEGMENTAL WALL INSTALLER TO EDUCATE ON ARTHRITIS SELF-MANAGEMENT PT / SEGMENTAL WALL INSTALLER TO EDUCATE ON HEART FAILURE SELF-MANAGEMENT PT / SEGMENTAL WALL INSTALLER TO EDUCATE ON HYPERTENSION SELF-MANAGEMENT PT TO ASSESS / SEGMENTAL WALL INSTALLER TO MONITOR CARDIO/RESPIRATORY SYSTEM; AND NOTIFY THE PHYSICIAN AND/OR THE RN CLINICAL ASBESTOS CLOTH INSPECTOR FOR PHYSICIAN NOTIFICATION FOR EARLY SIGNS AND SYMPTOMS OF EXACERBATION OR DETERIORATION. PT / SEGMENTAL WALL INSTALLER TO EDUCATE ON ATRIAL FIBRILLATION SELF-MANAGEMENT. PT / SEGMENTAL WALL INSTALLER TO EDUCATE ON PNEUMONIA / ASPIRATION PNEUMONIA SELF-MANAGEMENT. PT/SEGMENTAL WALL INSTALLER TO IDENTIFY FALL RISK FACTORS; EDUCATE THE PATIENT/CAREGIVER ON WAYS TO REDUCE FALL RISK FACTORS AND ESTABLISH HOME EXERCISE PROGRAM TO MINIMIZE FALL RISK. MAY TEACH THE PATIENT FLOOR RECOVERY WHEN CLINICALLY APPROPRIATE [code = PT TO EVALUATE, OBSERVE / ASSESS, AND MONITOR, SEGMENTAL WALL INSTALLER TO OBSERVE AND MONITOR, PROVIDE SKILLED THERAPEUTIC INTERVENTION, ACTIVITY, EDUCATION, AND TRAINING TO ADDRESS GEN. WEAKNESS, POOR OVERALL ACTIVITY TOLERANCE, AND FUNCTIONAL LIMITATIONS IMPACTING SAFETY AND INDEPENDENCE. BED MOBILITY (PT/SEGMENTAL WALL INSTALLER) PT/SEGMENTAL WALL INSTALLER TO PROVIDE GAIT TRAINING FOR IMPROVED MOBILITY AND /OR TO NORMALIZE GAIT PATTERN THERAPEUTIC EXERCISES AND ESTABLISHING A HOME EXERCISE PROGRAM (PT/SEGMENTAL WALL INSTALLER) PT/SEGMENTAL WALL INSTALLER TO PROVIDE STAIR TRAINING PT / SEGMENTAL WALL INSTALLER TO MONITOR AND EDUCATE ON OXYGEN SATURATION DURING ADLS/IADLS, NOTIFY PHYSICIAN AND/OR THE RN CLINICAL ASBESTOS CLOTH INSPECTOR FOR PHYSICIAN NOTIFICATION AND IF O2 SATS BELOW PHYSICIAN ORDERED PARAMETERS AFTER 10 MIN OF REST PT / SEGMENTAL WALL INSTALLER TO OBSERVE FOR EARLY SIGNS AND SYMPTOMS OF DEPRESSION OR DEPRESSION GETTING WORSE AND TO EDUCATE ON HOW TO FIND HELP. PT / SEGMENTAL WALL INSTALLER MAY EDUCATE ON PAIN MANAGEMENT CLINICALLY INDICATED, INCLUDING NON-PHARMACOLOGICAL PAIN REDUCTION TECHNIQUES PT / SEGMENTAL WALL INSTALLER TO MONITOR FOR HYPO/HYPERGLYCEMIA AND CONDUCT ROUTINE FOOT INSPECTIONS. RECORD PATIENT REPORTED BLOOD SUGAR LEVELS AND NOTIFY PHYSICIAN AND/OR THE RN CLINICAL ASBESTOS CLOTH INSPECTOR FOR PHYSICIAN NOTIFICATION IF BLOOD SUGAR LEVELS ARE OUTSIDE ORDERED PARAMETERS. TEACH PATIENT/CAREGIVER ON DAILY FOOT INSPECTIONS PT / SEGMENTAL WALL INSTALLER TO INSTRUCT PATIENT/CAREGIVER ON RISK FOR HOSPITALIZATION/EMERGENCY ROOM VISITS, TEACH SIGNS AND SYMPTOMS THAT PUT PATIENT AT RISK, WHEN TO NOTIFY NURSE/PHYSICIAN OF COMPLICATIONS/DECLINE, AND WHEN TO CALL 911. PT/SEGMENTAL WALL INSTALLER TO EDUCATE ON ARTHRITIS SELF-MANAGEMENT PT / SEGMENTAL WALL INSTALLER TO EDUCATE ON HEART FAILURE SELF-MANAGEMENT PT / SEGMENTAL WALL INSTALLER TO EDUCATE ON HYPERTENSION SELF-MANAGEMENT PT TO ASSESS / SEGMENTAL WALL INSTALLER TO MONITOR CARDIO/RESPIRATORY SYSTEM; AND NOTIFY THE PHYSICIAN AND/OR THE RN CLINICAL ASBESTOS CLOTH INSPECTOR FOR PHYSICIAN NOTIFICATION FOR EARLY SIGNS AND SYMPTOMS OF EXACERBATION OR DETERIORATION. PT / SEGMENTAL WALL INSTALLER TO EDUCATE ON ATRIAL FIBRILLATION SELF-MANAGEMENT. PT / SEGMENTAL WALL INSTALLER TO EDUCATE ON PNEUMONIA / ASPIRATION PNEUMONIA SELF-MANAGEMENT. PT/SEGMENTAL WALL INSTALLER TO IDENTIFY FALL RISK FACTORS; EDUCATE THE PATIENT/CAREGIVER ON WAYS TO REDUCE FALL RISK FACTORS AND ESTABLISH HOME EXERCISE PROGRAM TO MINIMIZE FALL RISK. MAY TEACH THE PATIENT FLOOR RECOVERY WHEN CLINICALLY APPROPRIATE] Future Scheduled Test AGENCY MAY PERFORM A RESUMPTION OF CARE VISIT FOLLOWING ANY HOSPITAL ADMISSION. OT TO EVALUATE, OBSERVE / ASSESS, AND MONITOR, BELTING AND WEBBING INSPECTOR TO OBSERVE AND MONITOR, PROVIDE SKILLED THERAPEUTIC INTERVENTION, ACTIVITY, EDUCATION, AND TRAINING TO ADDRESS SAFETY AND INDEPENDENCE OF ADLS AND FUNCTIONAL TRANSFERS IN HOME ENVIRONMENT. ACTIVITIES OF DAILY LIVING (OT/MARIANNE) THERAPEUTIC EXERCISE (OT/BELTING AND WEBBING INSPECTOR) ENERGY CONSERVATION/ACTIVITY DEMAND (OT/BELTING AND WEBBING INSPECTOR) OT/BELTING AND WEBBING INSPECTOR TO MONITOR AND EDUCATE ON OXYGEN SATURATION DURING ADLS/IADLS, NOTIFY PHYSICIAN AND/OR THE RN CLINICAL ASBESTOS CLOTH INSPECTOR FOR PHYSICIAN NOTIFICATION AND IF O2 SATS BELOW 90% AFTER 10 MIN OF REST. OT / BELTING AND WEBBING INSPECTOR TO IDENTIFY FALL RISK FACTORS; EDUCATE THE PATIENT/CAREGIVER ON WAYS TO REDUCE FALL RISK FACTORS AND ESTABLISH HOME EXERCISE PROGRAM TO MINIMIZE FALL RISK. MAY TEACH THE PATIENT FLOOR RECOVERY WHEN CLINICALLY APPROPRIATE. OT/BELTING AND WEBBING INSPECTOR TO EDUCATE ON HYPERTENSION SELF-MANAGEMENT OT/MARIANNE TO EDUCATE ON ATRIAL FIBRILLATION SELF-MANAGEMENT. [code = AGENCY MAY PERFORM A RESUMPTION OF CARE VISIT FOLLOWING ANY HOSPITAL ADMISSION. OT TO EVALUATE, OBSERVE / ASSESS, AND MONITOR, BELTING AND WEBBING INSPECTOR TO OBSERVE AND MONITOR, PROVIDE SKILLED THERAPEUTIC INTERVENTION, ACTIVITY, EDUCATION, AND TRAINING TO ADDRESS SAFETY AND INDEPENDENCE OF ADLS AND FUNCTIONAL TRANSFERS IN HOME ENVIRONMENT. ACTIVITIES OF DAILY LIVING (OT/MARIANNE) THERAPEUTIC EXERCISE (OT/BELTING AND WEBBING INSPECTOR) ENERGY CONSERVATION/ACTIVITY DEMAND (OT/MARIANNE) OT/BELTING AND WEBBING INSPECTOR TO MONITOR AND EDUCATE ON OXYGEN SATURATION DURING ADLS/IADLS, NOTIFY PHYSICIAN AND/OR THE RN CLINICAL ASBESTOS CLOTH INSPECTOR FOR PHYSICIAN NOTIFICATION AND IF O2 SATS BELOW 90% AFTER 10 MIN OF REST. OT / MARIANNE TO IDENTIFY FALL RISK FACTORS; EDUCATE THE PATIENT/CAREGIVER ON WAYS TO REDUCE FALL RISK FACTORS AND ESTABLISH HOME EXERCISE PROGRAM TO MINIMIZE FALL RISK. MAY TEACH THE PATIENT FLOOR RECOVERY WHEN CLINICALLY APPROPRIATE. OT/BELTING AND WEBBING INSPECTOR TO EDUCATE ON HYPERTENSION SELF-MANAGEMENT OT/MARIANNE TO [...] OF SKIN INTEGRITY ISSUES FROM SBA TO KS WITHIN 2 WKS. PT STG: PATIENT WILL [...] TO SAFELY NEGOTIATE STAIRS FROM SBA TO KS WITH 2 STEPS W/O HANDRAIL VIA FRONT [...] End Date/Time Encounter Type Admission Type Attending [facility] Care Department Encounter ID Discharge Date Discharge Status Discharge Condition Discharge Reason Percent Goals Met 2025-02-07 00:00:00 2025-04-07 00:00:00 Outpatient NEW ADMISSION [facility] [id number] 26.42
--- OUTSIDE RECORDS SUMMARY | 2025-04-06 18:00 | XMS_ITS | Clinical Summary ---
Author Organization Unknown Care Team Providers Care Upper Cutter Out Name Role Phone DIGNA ARIEL, ESTRELLA Unavailable Unava dinora STOKES RN, FRANKIE Unavailable Unavailabl e KARI PT, DIDI Unavailable Unavailable NAT LOSS PREVENTION REPRESENTATIVE, GAUDENCIO Unavailable Unavailabl e RADHA OT, ROLANDO Unavailable Unavailable JOANNE STEVEN, HATTIE Unavailable Unavailable Payers Payer Name Policy Type Policy Number Effective Date Expira tion Date MEDICARE.[facility] [id number] Problems Condition Name Condition Details Condition Category Status Onset Date Resolution Date Last Treatment Date Treating Clinician Comments 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 02-07 [...] OF PNEUMONIA (RECURRENT) Active 02-07 00:00: 00 VETERINARY PRACTITIONER (CURRENT) USE OF SYSTEMIC STEROIDS Active 02-07 [...] 80 mg tablet 02-07 00:00: 00 Yes [id number] CHOLESTEROL 1 tablet DAILY 1 tablet DAILY (route: oral) Med Classific ation: Cardiovas cular Therapy Agents digoxin 125 mcg (0.125 mg) tablet 02-07 00:00: 00 02-21 23:59 :00 No [id number] HEART RHYTHM 1 tablet DAILY 1 tablet DAILY (route: oral) Med Classific ation: Cardiovas cular Therapy Agents escitalopra m 10 mg tablet 02-07 00:00: 00 Yes [id number] MOOD 1 tablet DAILY 1 tablet DAILY (route: oral) Med Classific ation: Central Nervous System Agents ezetimibe 10 mg tablet 02-07 00:00: 00 Yes [id number] CHOLESTEROL 1 tablet DAILY 1 tablet DAILY (route: oral) Med Classific ation: Cardiovas cular Therapy Agents metoprolol succinate ER 25 mg tablet,exte nded release 24 hr 02-07 00:00: 00 02-21 23:59 :00 No [id number] BLOOD PRESSURE 0.5 tablet DAILY 0.5 tablet DAILY (route: oral) Med Classific ation: Cardiovas cular Therapy Agents pantoprazol e 40 mg tablet,joão yed release 02-07 00:00: 00 02-21 23:59 :00 No [id number] STOMACH ACID 1 tablet DAILY 1 tablet DAILY (route: oral) Med Classific ation: Gastroint estinal Therapy Agents prednisone 5 mg tablet 02-07 00:00: 00 Yes [id number] ADRENAL INSUFFICIEN CY 1 tablet DAILY 1 tablet DAILY (route: oral) Med Classific ation: Endocrine spironolact one 25 mg tablet 02-07 00:00: 00 Yes [id number] FLUID RETENTION 0.5 tablet DAILY 0.5 tablet DAILY (route: oral) Med Classific ation: Cardiovas cular Therapy Agents tamsulosin 0.4 mg capsule 02-07 00:00: 00 02-21 23:59 :00 No [id number] URINARY HEALTH 1 capsule DAILY 1 capsule DAILY (route: oral) Med Classific ation: Genitouri nary Therapy acetaminoph en 325 mg tablet 2024-05 00:00: 00 Yes [id number] PAIN 2 tablet 2 TIMES DAILY 2 tablet 2 TIMES DAILY (route: oral) Med Classific ation: Analgesic , Anti-infl ammatory or Antipyret ic aspirin 81 mg tablet 2024-05 00:00: 00 Yes [id number] ANTICOAGULA NT 1 tablet DAILY 1 tablet DAILY (route: oral) Med Classific ation: Hematolog ical Agents ipratropium 0.5 mg-albutero l 3 mg (2.5 mg base)/3 mL nebulizatio n soln 2024-05 00:00: 00 Yes [id number] COPD 3 mL EVERY 6 HOURS 3 mL EVERY 6 HOURS (route: inhalation ) Med Classific ation: Respirato ry Therapy Agents Lanoxin 62.5 mcg (0.0625 mg) tablet 2024-05 00:00: 00 Yes [id number] CHF 1 tablet DAILY 1 tablet DAILY (route: oral) Med Classific ation: Cardiovas cular Therapy Agents Lasix 20 mg tablet 2024-05 00:00: 00 Yes [id number] CHF 1 tablet DAILY 1 tablet DAILY (route: oral) Med Classific ation: Cardiovas cular Therapy Agents Toprol XL 25 mg tablet,exte nded release 2024-05 00:00: 00 Yes [id number] BP 25 mg DAILY 25 mg DAILY [...] SYSTEM MANAGEMENT; RN TO ASSESS AND TEACH, COMMUNITY SERVICE MANAGER/MERCHANDISE SUPERVISOR TO OBSERVE AND TEACH RELATED TO ALTERED RESPIRATORY STATUS TO MINIMIZE COMPLICATIONS AND REDUCE HOSPITALIZATION. [code = SN 1WK9 PT 1WK1 OT EFFECTIVE 02/10/2025K1 RESPIRATORY SYSTEM MANAGEMENT; RN TO ASSESS AND TEACH, COMMUNITY SERVICE MANAGER/MERCHANDISE SUPERVISOR TO OBSERVE AND TEACH RELATED TO ALTERED RESPIRATORY STATUS TO MINIMIZE COMPLICATIONS AND REDUCE HOSPITALIZATION.] Future Scheduled Test TRACHEOSTO MY CARE MANAGEMENT; RN/COMMUNITY SERVICE MANAGER/MERCHANDISE SUPERVISOR TO INSTRUCT PATIENT/CAREGIVER ON CARE AND MANAGEMENT OF TRACHEOSTOMY. RN/ COMMUNITY SERVICE MANAGER/MERCHANDISE SUPERVISOR TO PROVIDE SKILLED TEACHING ON TRACH COLLAR SUCTIONING PRN WITH 14 FR SUCTION CATHETER PER PATIENT TRACH CARE WITH INNER CANNULA: REMOVE INNER CANNULA, CLEANSE WITH NORMAL SALINE AND OR STERILE WATER AND REINSERT NON-DISPOSABLE CANNULA SIZE OF INNER CANNULA 5 BROOKS [code = TRACHEOSTOMY CARE MANAGEMENT; RN/COMMUNITY SERVICE MANAGER/MERCHANDISE SUPERVISOR TO INSTRUCT PATIENT/CAREGIVER ON CARE AND MANAGEMENT OF TRACHEOSTOMY. RN/ COMMUNITY SERVICE MANAGER/MERCHANDISE SUPERVISOR TO PROVIDE SKILLED TEACHING ON TRACH COLLAR SUCTIONING PRN WITH 14 FR SUCTION CATHETER PER PATIENT TRACH CARE WITH INNER CANNULA: REMOVE INNER CANNULA, CLEANSE WITH NORMAL SALINE AND OR STERILE WATER AND REINSERT NON-DISPOSABLE CANNULA SIZE OF INNER CANNULA 5 BROOKS] Future Scheduled Test FALL REDUC TION MANAGEMENT; RN TO ASSESS AND OBSERVE, COMMUNITY SERVICE MANAGER/MERCHANDISE SUPERVISOR TO OBSERVE FALL RISK FACTORS AND EDUCATE PATIENT/CAREGIVER ON STRATEGIES TO MINIMIZE THE RISK OF FALLING. [code = FALL REDUCTION MANAGEMENT; RN TO ASSESS AND OBSERVE, COMMUNITY SERVICE MANAGER/MERCHANDISE SUPERVISOR TO OBSERVE FALL RISK FACTORS AND EDUCATE PATIENT/CAREGIVER ON STRATEGIES TO MINIMIZE THE RISK OF FALLING.] Future Scheduled Test ANEMIA MAN AGEMENT; RN TO ASSESS AND TEACH, MERCHANDISE SUPERVISOR/COMMUNITY SERVICE MANAGER TO OBSERVE AND TEACH AND PROVIDE EDUCATION ON ANEMIA. [code = ANEMIA MANAGEMENT; RN TO ASSESS AND TEACH, MERCHANDISE SUPERVISOR/COMMUNITY SERVICE MANAGER TO OBSERVE AND TEACH AND PROVIDE EDUCATION ON ANEMIA.] Future Scheduled Test RN TO OBSE RVE, ASSESS, EVALUATE, AND DEVELOP AN INDIVIDUALIZED PLAN OF CARE. AGENCY MAY ACCEPT ORDERS FROM CONSULTING PHYSICIANS RN TO OBSERVE AND ASSESS, COMMUNITY SERVICE MANAGER/MERCHANDISE SUPERVISOR TO OBSERVE FOR RISK FOR FALLS AND INSTRUCT IN FALL PREVENTION, HOME SAFETY, MEDICATION MANAGEMENT, INFECTION PREVENTION, AND NUTRITION MANAGEMENT. RN/COMMUNITY SERVICE MANAGER/MERCHANDISE SUPERVISOR NURSE MAY PERFORM O2 SATURATION LEVEL ON ADMISSION AND PRN FOR RN TO ASSESS/COMMUNITY SERVICE MANAGER TO OBSERVE PATIENT, WITH NOTIFICATION TO THE PHYSICIAN IF SATURATION IS 90% IN THE ABSENCE OF MORE SPECIFIC PARAMETERS FROM THE PHYSICIAN. AGENCY MAY PERFORM A RESUMPTION OF CARE VISIT FOLLOWING ANY HOSPITAL ADMISSION. RN/COMMUNITY SERVICE MANAGER/MERCHANDISE SUPERVISOR TO MONITOR CO-MORBID CONDITIONS LISTED ON THE PLAN OF CARE AND ANY NEW CONDITIONS THAT PRESENT THEMSELVES DURING THIS EPISODE TO IDENTIFY CHANGES AND INTERVENE TO MINIMIZE COMPLICATIONS. [code = RN TO OBSERVE, ASSESS, EVALUATE, AND DEVELOP AN INDIVIDUALIZED PLAN OF CARE. AGENCY MAY ACCEPT ORDERS FROM CONSULTING PHYSICIANS RN TO OBSERVE AND ASSESS, COMMUNITY SERVICE MANAGER/MERCHANDISE SUPERVISOR TO OBSERVE FOR RISK FOR FALLS AND INSTRUCT IN FALL PREVENTION, HOME SAFETY, MEDICATION MANAGEMENT, INFECTION PREVENTION, AND NUTRITION MANAGEMENT. RN/COMMUNITY SERVICE MANAGER/MERCHANDISE SUPERVISOR NURSE MAY PERFORM O2 SATURATION LEVEL ON ADMISSION AND PRN FOR RN TO ASSESS/COMMUNITY SERVICE MANAGER TO OBSERVE PATIENT, WITH NOTIFICATION TO THE PHYSICIAN IF SATURATION IS 90% IN THE ABSENCE OF MORE SPECIFIC PARAMETERS FROM THE PHYSICIAN. AGENCY MAY PERFORM A RESUMPTION OF CARE VISIT FOLLOWING ANY HOSPITAL ADMISSION. RN/COMMUNITY SERVICE MANAGER/MERCHANDISE SUPERVISOR TO MONITOR CO-MORBID CONDITIONS LISTED ON THE PLAN OF CARE AND ANY NEW CONDITIONS THAT PRESENT THEMSELVES DURING THIS EPISODE TO IDENTIFY CHANGES AND INTERVENE TO MINIMIZE COMPLICATIONS.] Future Scheduled Test PAIN MANAG EMENT; RN TO ASSESS AND TEACH, MERCHANDISE SUPERVISOR/COMMUNITY SERVICE MANAGER TO OBSERVE AND TEACH AND PROVIDE EDUCATION ON PAIN MANAGEMENT TECHNIQUES. [code = PAIN MANAGEMENT; RN TO ASSESS AND TEACH, MERCHANDISE SUPERVISOR/COMMUNITY SERVICE MANAGER TO OBSERVE AND TEACH AND PROVIDE EDUCATION ON PAIN MANAGEMENT TECHNIQUES.] Future Scheduled Test RISK FOR H OSPITALIZATION; RN TO ASSESS/TEACH, MERCHANDISE SUPERVISOR/COMMUNITY SERVICE MANAGER TO OBSERVE/TEACH PATIENT/CAREGIVER ON RISK FOR HOSPITALIZATION/EMERGENCY ROOM VISITS, TEACH SIGNS AND SYMPTOMS THAT PUT PATIENT AT RISK, WHEN TO NOTIFY NURSE/PHYSICIAN OF COMPLICATIONS/DECLINE, AND WHEN TO CALL 911. [code = RISK FOR HOSPITALIZATION; RN TO ASSESS/TEACH, MERCHANDISE SUPERVISOR/COMMUNITY SERVICE MANAGER TO OBSERVE/TEACH PATIENT/CAREGIVER ON RISK FOR HOSPITALIZATION/EMERGENCY ROOM VISITS, TEACH SIGNS AND SYMPTOMS THAT PUT PATIENT AT RISK, WHEN TO NOTIFY NURSE/PHYSICIAN OF COMPLICATIONS/DECLINE, AND WHEN TO CALL 911.] Future Scheduled Test CARDIOVASC ULAR SYSTEM; RN TO ASSESS/TEACH, COMMUNITY SERVICE MANAGER/MERCHANDISE SUPERVISOR TO OBSERVE/TEACH RELATED TO ALTERED CARDIOVASCULAR STATUS TO MINIMIZE COMPLICATIONS AND REDUCE HOSPITALIZATION. [code = CARDIOVASCULAR SYSTEM; RN TO ASSESS/TEACH, COMMUNITY SERVICE MANAGER/MERCHANDISE SUPERVISOR TO OBSERVE/TEACH RELATED TO ALTERED CARDIOVASCULAR STATUS TO MINIMIZE COMPLICATIONS AND REDUCE HOSPITALIZATION.] Future Scheduled Test HYPERTENSI ON MANAGEMENT; RN TO ASSESS AND TEACH, COMMUNITY SERVICE MANAGER/MERCHANDISE SUPERVISOR TO OBSERVE AND TEACH WARNING SIGNS AND SYMPTOMS TO AVOID HOSPITALIZATION. [code = HYPERTENSION MANAGEMENT; RN TO ASSESS AND TEACH, COMMUNITY SERVICE MANAGER/MERCHANDISE SUPERVISOR TO OBSERVE AND TEACH WARNING SIGNS AND SYMPTOMS TO AVOID HOSPITALIZATION.] Future Scheduled Test HEART FAIL URE MONITORING RN/MERCHANDISE SUPERVISOR/COMMUNITY SERVICE MANAGER TO MONITOR PATIENT FOR SIGNS AND SYMPTOMS OF HEART FAILURE EXACERBATION, MONITOR FOR ADHERENCE WITH MEDICATION AND HEART FAILURE MANAGEMENT REGIMEN. [code = HEART FAILURE MONITORING RN/MERCHANDISE SUPERVISOR/COMMUNITY SERVICE MANAGER TO MONITOR PATIENT FOR SIGNS AND SYMPTOMS OF HEART FAILURE EXACERBATION, MONITOR FOR ADHERENCE WITH MEDICATION AND HEART FAILURE MANAGEMENT REGIMEN.] Future Scheduled Test DIABETES M ONITORING RN/MERCHANDISE SUPERVISOR/COMMUNITY SERVICE MANAGER TO MONITOR BLOOD SUGAR LOG FOR BLOOD SUGAR READINGS THAT ARE BEING CHECKED BY PATIENT, CAREGIVER NEEDED FOR SIGNS AND SYMPTOMS OF HYPER/HYPOGLYCEMIA. PATIENT THERAPEUTIC BLOOD SUGAR PARAMETERS ARE 70 - 300. REPORT BLOOD SUGARS OUT OF RANGE TO PHYSICIAN. NURSE MAY PERFORM FINGER STICK BLOOD GLUCOSE NEEDED FOR SIGNS AND SYMPTOMS OF HYPO AND HYPERGLYCEMIA. RN/MERCHANDISE SUPERVISOR/COMMUNITY SERVICE MANAGER TO MONITOR ADHERENCE OF PATIENT/CAREGIVER PERFORMING DIABETIC FOOT CARE AND MAY PERFORM DIABETIC FOOT CARE PRN. RN/MERCHANDISE SUPERVISOR/COMMUNITY SERVICE MANAGER TO MONITOR FOR ADHERENCE TO DIABETIC SELF-CARE AND MANAGEMENT INCLUDING MEDICATIONS. [code = DIABETES MONITORING RN/MERCHANDISE SUPERVISOR/COMMUNITY SERVICE MANAGER TO MONITOR BLOOD SUGAR LOG FOR BLOOD SUGAR READINGS THAT ARE BEING CHECKED BY PATIENT, CAREGIVER NEEDED FOR SIGNS AND SYMPTOMS OF HYPER/HYPOGLYCEMIA. PATIENT THERAPEUTIC BLOOD SUGAR PARAMETERS ARE 70 - 300. REPORT BLOOD SUGARS OUT OF RANGE TO PHYSICIAN. NURSE MAY PERFORM FINGER STICK BLOOD GLUCOSE NEEDED FOR SIGNS AND SYMPTOMS OF HYPO AND HYPERGLYCEMIA. RN/MERCHANDISE SUPERVISOR/COMMUNITY SERVICE MANAGER TO MONITOR ADHERENCE OF PATIENT/CAREGIVER PERFORMING DIABETIC FOOT CARE AND MAY PERFORM DIABETIC FOOT CARE PRN. RN/MERCHANDISE SUPERVISOR/COMMUNITY SERVICE MANAGER TO MONITOR FOR ADHERENCE TO DIABETIC SELF-CARE AND MANAGEMENT INCLUDING MEDICATIONS.] Future Scheduled Test HYPOTENSIO N MANAGEMENT; RN TO ASSESS AND TEACH/ COMMUNITY SERVICE MANAGER /MERCHANDISE SUPERVISOR TO OBSERVE AND TEACH WARNING SIGNS AND SYMPTOMS TO AVOID HOSPITALIZATION. [code = HYPOTENSION MANAGEMENT; RN TO ASSESS AND TEACH/ COMMUNITY SERVICE MANAGER /MERCHANDISE SUPERVISOR TO OBSERVE AND TEACH WARNING SIGNS AND SYMPTOMS TO AVOID HOSPITALIZATION.] Future Scheduled Test ARRHYTHMIA MANAGEMENT; RN TO ASSESS AND TEACH, COMMUNITY SERVICE MANAGER/MERCHANDISE SUPERVISOR TO OBSERVE AND TEACH WARNING SIGNS AND SYMPTOMS TO AVOID HOSPITALIZATION. [code = ARRHYTHMIA MANAGEMENT; RN TO ASSESS AND TEACH, COMMUNITY SERVICE MANAGER/MERCHANDISE SUPERVISOR TO OBSERVE AND TEACH WARNING SIGNS AND SYMPTOMS TO AVOID HOSPITALIZATION.] Future Scheduled Test MEDICATION MANAGEMENT; RN/COMMUNITY SERVICE MANAGER/MERCHANDISE SUPERVISOR TO REVIEW MEDICATIONS FOR INTERACTIONS, EFFECTIVENESS OF DRUG THERAPY, AND SIGNS/SYMPTOMS OF ADVERSE REACTIONS. MAY INSTRUCT AND REINFORCE MEDICATION TEACHING RELATED TO THE USE OF MEDICATIONS, DOSAGE, FREQUENCY, PURPOSE, SIDE EFFECTS, AND TO REPORT COMPLICATIONS. [code = MEDICATION MANAGEMENT; RN/COMMUNITY SERVICE MANAGER/MERCHANDISE SUPERVISOR TO REVIEW MEDICATIONS FOR INTERACTIONS, EFFECTIVENESS [...] EVAL UATE, OBSERVE / ASSESS, AND MONITOR, LOSS PREVENTION REPRESENTATIVE TO OBSERVE AND MONITOR, PROVIDE SKILLED THERAPEUTIC INTERVENTION, ACTIVITY, EDUCATION, AND TRAINING TO ADDRESS GEN. WEAKNESS, POOR OVERALL ACTIVITY TOLERANCE, AND FUNCTIONAL LIMITATIONS IMPACTING SAFETY AND INDEPENDENCE. BED MOBILITY (PT/LOSS PREVENTION REPRESENTATIVE) PT/LOSS PREVENTION REPRESENTATIVE TO PROVIDE GAIT TRAINING FOR IMPROVED MOBILITY AND /OR TO NORMALIZE GAIT PATTERN THERAPEUTIC EXERCISES AND ESTABLISHING A HOME EXERCISE PROGRAM (PT/LOSS PREVENTION REPRESENTATIVE) PT/LOSS PREVENTION REPRESENTATIVE TO PROVIDE STAIR TRAINING PT / LOSS PREVENTION REPRESENTATIVE TO MONITOR AND EDUCATE ON OXYGEN SATURATION DURING ADLS/IADLS, NOTIFY PHYSICIAN AND/OR THE RN CLINICAL STEEL ERECTING PUSHER FOR PHYSICIAN NOTIFICATION AND IF O2 SATS BELOW PHYSICIAN ORDERED PARAMETERS AFTER 10 MIN OF REST PT / LOSS PREVENTION REPRESENTATIVE TO OBSERVE FOR EARLY SIGNS AND SYMPTOMS OF DEPRESSION OR DEPRESSION GETTING WORSE AND TO EDUCATE ON HOW TO FIND HELP. PT / LOSS PREVENTION REPRESENTATIVE MAY EDUCATE ON PAIN MANAGEMENT CLINICALLY INDICATED, INCLUDING NON-PHARMACOLOGICAL PAIN REDUCTION TECHNIQUES PT / LOSS PREVENTION REPRESENTATIVE TO MONITOR FOR HYPO/HYPERGLYCEMIA AND CONDUCT ROUTINE FOOT INSPECTIONS. RECORD PATIENT REPORTED BLOOD SUGAR LEVELS AND NOTIFY PHYSICIAN AND/OR THE RN CLINICAL STEEL ERECTING PUSHER FOR PHYSICIAN NOTIFICATION IF BLOOD SUGAR LEVELS ARE OUTSIDE ORDERED PARAMETERS. TEACH PATIENT/CAREGIVER ON DAILY FOOT INSPECTIONS PT / LOSS PREVENTION REPRESENTATIVE TO INSTRUCT PATIENT/CAREGIVER ON RISK FOR HOSPITALIZATION/EMERGENCY ROOM VISITS, TEACH SIGNS AND SYMPTOMS THAT PUT PATIENT AT RISK, WHEN TO NOTIFY NURSE/PHYSICIAN OF COMPLICATIONS/DECLINE, AND WHEN TO CALL 911. PT/LOSS PREVENTION REPRESENTATIVE TO EDUCATE ON ARTHRITIS SELF-MANAGEMENT PT / LOSS PREVENTION REPRESENTATIVE TO EDUCATE ON HEART FAILURE SELF-MANAGEMENT PT / LOSS PREVENTION REPRESENTATIVE TO EDUCATE ON HYPERTENSION SELF-MANAGEMENT PT TO ASSESS / LOSS PREVENTION REPRESENTATIVE TO MONITOR CARDIO/RESPIRATORY SYSTEM; AND NOTIFY THE PHYSICIAN AND/OR THE RN CLINICAL STEEL ERECTING PUSHER FOR PHYSICIAN NOTIFICATION FOR EARLY SIGNS AND SYMPTOMS OF EXACERBATION OR DETERIORATION. PT / LOSS PREVENTION REPRESENTATIVE TO EDUCATE ON ATRIAL FIBRILLATION SELF-MANAGEMENT. PT / LOSS PREVENTION REPRESENTATIVE TO EDUCATE ON PNEUMONIA / ASPIRATION PNEUMONIA SELF-MANAGEMENT. PT/LOSS PREVENTION REPRESENTATIVE TO IDENTIFY FALL RISK FACTORS; EDUCATE THE PATIENT/CAREGIVER ON WAYS TO REDUCE FALL RISK FACTORS AND ESTABLISH HOME EXERCISE PROGRAM TO MINIMIZE FALL RISK. MAY TEACH THE PATIENT FLOOR RECOVERY WHEN CLINICALLY APPROPRIATE [code = PT TO EVALUATE, OBSERVE / ASSESS, AND MONITOR, LOSS PREVENTION REPRESENTATIVE TO OBSERVE AND MONITOR, PROVIDE SKILLED THERAPEUTIC INTERVENTION, ACTIVITY, EDUCATION, AND TRAINING TO ADDRESS GEN. WEAKNESS, POOR OVERALL ACTIVITY TOLERANCE, AND FUNCTIONAL LIMITATIONS IMPACTING SAFETY AND INDEPENDENCE. BED MOBILITY (PT/LOSS PREVENTION REPRESENTATIVE) PT/LOSS PREVENTION REPRESENTATIVE TO PROVIDE GAIT TRAINING FOR IMPROVED MOBILITY AND /OR TO NORMALIZE GAIT PATTERN THERAPEUTIC EXERCISES AND ESTABLISHING A HOME EXERCISE PROGRAM (PT/LOSS PREVENTION REPRESENTATIVE) PT/LOSS PREVENTION REPRESENTATIVE TO PROVIDE STAIR TRAINING PT / LOSS PREVENTION REPRESENTATIVE TO MONITOR AND EDUCATE ON OXYGEN SATURATION DURING ADLS/IADLS, NOTIFY PHYSICIAN AND/OR THE RN CLINICAL STEEL ERECTING PUSHER FOR PHYSICIAN NOTIFICATION AND IF O2 SATS BELOW PHYSICIAN ORDERED PARAMETERS AFTER 10 MIN OF REST PT / LOSS PREVENTION REPRESENTATIVE TO OBSERVE FOR EARLY SIGNS AND SYMPTOMS OF DEPRESSION OR DEPRESSION GETTING WORSE AND TO EDUCATE ON HOW TO FIND HELP. PT / LOSS PREVENTION REPRESENTATIVE MAY EDUCATE ON PAIN MANAGEMENT CLINICALLY INDICATED, INCLUDING NON-PHARMACOLOGICAL PAIN REDUCTION TECHNIQUES PT / LOSS PREVENTION REPRESENTATIVE TO MONITOR FOR HYPO/HYPERGLYCEMIA AND CONDUCT ROUTINE FOOT INSPECTIONS. RECORD PATIENT REPORTED BLOOD SUGAR LEVELS AND NOTIFY PHYSICIAN AND/OR THE RN CLINICAL STEEL ERECTING PUSHER FOR PHYSICIAN NOTIFICATION IF BLOOD SUGAR LEVELS ARE OUTSIDE ORDERED PARAMETERS. TEACH PATIENT/CAREGIVER ON DAILY FOOT INSPECTIONS PT / LOSS PREVENTION REPRESENTATIVE TO INSTRUCT PATIENT/CAREGIVER ON RISK FOR HOSPITALIZATION/EMERGENCY ROOM VISITS, TEACH SIGNS AND SYMPTOMS THAT PUT PATIENT AT RISK, WHEN TO NOTIFY NURSE/PHYSICIAN OF COMPLICATIONS/DECLINE, AND WHEN TO CALL 911. PT/LOSS PREVENTION REPRESENTATIVE TO EDUCATE ON ARTHRITIS SELF-MANAGEMENT PT / LOSS PREVENTION REPRESENTATIVE TO EDUCATE ON HEART FAILURE SELF-MANAGEMENT PT / LOSS PREVENTION REPRESENTATIVE TO EDUCATE ON HYPERTENSION SELF-MANAGEMENT PT TO ASSESS / LOSS PREVENTION REPRESENTATIVE TO MONITOR CARDIO/RESPIRATORY SYSTEM; AND NOTIFY THE PHYSICIAN AND/OR THE RN CLINICAL STEEL ERECTING PUSHER FOR PHYSICIAN NOTIFICATION FOR EARLY SIGNS AND SYMPTOMS OF EXACERBATION OR DETERIORATION. PT / LOSS PREVENTION REPRESENTATIVE TO EDUCATE ON ATRIAL FIBRILLATION SELF-MANAGEMENT. PT / LOSS PREVENTION REPRESENTATIVE TO EDUCATE ON PNEUMONIA / ASPIRATION PNEUMONIA SELF-MANAGEMENT. PT/LOSS PREVENTION REPRESENTATIVE TO IDENTIFY FALL RISK FACTORS; EDUCATE THE PATIENT/CAREGIVER ON WAYS TO REDUCE FALL RISK FACTORS AND ESTABLISH HOME EXERCISE PROGRAM TO MINIMIZE FALL RISK. MAY TEACH THE PATIENT FLOOR RECOVERY WHEN CLINICALLY APPROPRIATE] Future Scheduled Test AGENCY MAY PERFORM A RESUMPTION OF CARE VISIT FOLLOWING ANY HOSPITAL ADMISSION. OT TO EVALUATE, OBSERVE / ASSESS, AND MONITOR, VISUAL DISPLAY MANAGER TO OBSERVE AND MONITOR, PROVIDE SKILLED THERAPEUTIC INTERVENTION, ACTIVITY, EDUCATION, AND TRAINING TO ADDRESS SAFETY AND INDEPENDENCE OF ADLS AND FUNCTIONAL TRANSFERS IN HOME ENVIRONMENT. ACTIVITIES OF DAILY LIVING (OT/MARIANNE) THERAPEUTIC EXERCISE (OT/VISUAL DISPLAY MANAGER) ENERGY CONSERVATION/ACTIVITY DEMAND (OT/VISUAL DISPLAY MANAGER) OT/VISUAL DISPLAY MANAGER TO MONITOR AND EDUCATE ON OXYGEN SATURATION DURING ADLS/IADLS, NOTIFY PHYSICIAN AND/OR THE RN CLINICAL STEEL ERECTING PUSHER FOR PHYSICIAN NOTIFICATION AND IF O2 SATS BELOW 90% AFTER 10 MIN OF REST. OT / VISUAL DISPLAY MANAGER TO IDENTIFY FALL RISK FACTORS; EDUCATE THE PATIENT/CAREGIVER ON WAYS TO REDUCE FALL RISK FACTORS AND ESTABLISH HOME EXERCISE PROGRAM TO MINIMIZE FALL RISK. MAY TEACH THE PATIENT FLOOR RECOVERY WHEN CLINICALLY APPROPRIATE. OT/VISUAL DISPLAY MANAGER TO EDUCATE ON HYPERTENSION SELF-MANAGEMENT OT/MARIANNE TO EDUCATE ON ATRIAL FIBRILLATION SELF-MANAGEMENT. [code = AGENCY MAY PERFORM A RESUMPTION OF CARE VISIT FOLLOWING ANY HOSPITAL ADMISSION. OT TO EVALUATE, OBSERVE / ASSESS, AND MONITOR, VISUAL DISPLAY MANAGER TO OBSERVE AND MONITOR, PROVIDE SKILLED THERAPEUTIC INTERVENTION, ACTIVITY, EDUCATION, AND TRAINING TO ADDRESS SAFETY AND INDEPENDENCE OF ADLS AND FUNCTIONAL TRANSFERS IN HOME ENVIRONMENT. ACTIVITIES OF DAILY LIVING (OT/MARIANNE) THERAPEUTIC EXERCISE (OT/VISUAL DISPLAY MANAGER) ENERGY CONSERVATION/ACTIVITY DEMAND (OT/MARIANNE) OT/VISUAL DISPLAY MANAGER TO MONITOR AND EDUCATE ON OXYGEN SATURATION DURING ADLS/IADLS, NOTIFY PHYSICIAN AND/OR THE RN CLINICAL STEEL ERECTING PUSHER FOR PHYSICIAN NOTIFICATION AND IF O2 SATS BELOW 90% AFTER 10 MIN OF REST. OT / MARIANNE TO IDENTIFY FALL RISK FACTORS; EDUCATE THE PATIENT/CAREGIVER ON WAYS TO REDUCE FALL RISK FACTORS AND ESTABLISH HOME EXERCISE PROGRAM TO MINIMIZE FALL RISK. MAY TEACH THE PATIENT FLOOR RECOVERY WHEN CLINICALLY APPROPRIATE. OT/VISUAL DISPLAY MANAGER TO EDUCATE ON HYPERTENSION SELF-MANAGEMENT OT/MARIANNE [...] NEW ADMISSION [facility] [id number]
--- OUTSIDE RECORDS SUMMARY | 2025-04-06 18:00 | XMS_ITS | Clinical Summary ---
Author Organization Unknown Care Team Providers Care Sort Manager Name Role Phone DIGNA ARIEL, ESTRELLA Unavailable Unava dinora STOKES RN, FRANKIE Unavailable Unavailabl e KARI PT, DIDI Unavailable Unavailable NAT TRANSITION MGR RN, GAUDENCIO Unavailable Unavailabl e RADHA OT, ROLANDO Unavailable Unavailable JOANNE STEVEN, HATTIE Unavailable Unavailable Payers Payer Name Policy Type Policy Number Effective Date Expira tion Date MEDICARE.[facility] [id number] Problems Condition Name Condition Details Condition Category Status Onset Date Resolution Date Last Treatment Date Treating Clinician Comments 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 02-07 [...] OF PNEUMONIA (RECURRENT) Active 02-07 00:00: 00 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 (CURRENT) USE OF SYSTEMIC STEROIDS Active 02-07 [...] 80 mg tablet 02-07 00:00: 00 Yes [id number] CHOLESTEROL 1 tablet DAILY 1 tablet DAILY (route: oral) Med Classific ation: Cardiovas cular Therapy Agents digoxin 125 mcg (0.125 mg) tablet 02-07 00:00: 00 02-21 23:59 :00 No [id number] HEART RHYTHM 1 tablet DAILY 1 tablet DAILY (route: oral) Med Classific ation: Cardiovas cular Therapy Agents escitalopra m 10 mg tablet 02-07 00:00: 00 Yes [id number] MOOD 1 tablet DAILY 1 tablet DAILY (route: oral) Med Classific ation: Central Nervous System Agents ezetimibe 10 mg tablet 02-07 00:00: 00 Yes [id number] CHOLESTEROL 1 tablet DAILY 1 tablet DAILY (route: oral) Med Classific ation: Cardiovas cular Therapy Agents metoprolol succinate ER 25 mg tablet,exte nded release 24 hr 02-07 00:00: 00 02-21 23:59 :00 No [id number] BLOOD PRESSURE 0.5 tablet DAILY 0.5 tablet DAILY (route: oral) Med Classific ation: Cardiovas cular Therapy Agents pantoprazol e 40 mg tablet,joão yed release 02-07 00:00: 00 02-21 23:59 :00 No [id number] STOMACH ACID 1 tablet DAILY 1 tablet DAILY (route: oral) Med Classific ation: Gastroint estinal Therapy Agents prednisone 5 mg tablet 02-07 00:00: 00 Yes [id number] ADRENAL INSUFFICIEN CY 1 tablet DAILY 1 tablet DAILY (route: oral) Med Classific ation: Endocrine spironolact one 25 mg tablet 02-07 00:00: 00 Yes [id number] FLUID RETENTION 0.5 tablet DAILY 0.5 tablet DAILY (route: oral) Med Classific ation: Cardiovas cular Therapy Agents tamsulosin 0.4 mg capsule 02-07 00:00: 00 02-21 23:59 :00 No [id number] URINARY HEALTH 1 capsule DAILY 1 capsule DAILY (route: oral) Med Classific ation: Genitouri nary Therapy acetaminoph en 325 mg tablet 2024-05 00:00: 00 Yes [id number] PAIN 2 tablet 2 TIMES DAILY 2 tablet 2 TIMES DAILY (route: oral) Med Classific ation: Analgesic , Anti-infl ammatory or Antipyret ic aspirin 81 mg tablet 2024-05 00:00: 00 Yes [id number] ANTICOAGULA NT 1 tablet DAILY 1 tablet DAILY (route: oral) Med Classific ation: Hematolog ical Agents ipratropium 0.5 mg-albutero l 3 mg (2.5 mg base)/3 mL nebulizatio n soln 2024-05 00:00: 00 Yes [id number] COPD 3 mL EVERY 6 HOURS 3 mL EVERY 6 HOURS (route: inhalation ) Med Classific ation: Respirato ry Therapy Agents Lanoxin 62.5 mcg (0.0625 mg) tablet 2024-05 00:00: 00 Yes [id number] CHF 1 tablet DAILY 1 tablet DAILY (route: oral) Med Classific ation: Cardiovas cular Therapy Agents Lasix 20 mg tablet 2024-05 00:00: 00 Yes [id number] CHF 1 tablet DAILY 1 tablet DAILY (route: oral) Med Classific ation: Cardiovas cular Therapy Agents Toprol XL 25 mg tablet,exte nded release 2024-05 00:00: 00 Yes [id number] BP 25 mg DAILY 25 mg DAILY [...] SYSTEM MANAGEMENT; RN TO ASSESS AND TEACH, PILOT PLANT SUPERVISOR/DERRICK MAN TO OBSERVE AND TEACH RELATED TO ALTERED RESPIRATORY STATUS TO MINIMIZE COMPLICATIONS AND REDUCE HOSPITALIZATION. [code = SN 1WK9 PT 1WK1 OT EFFECTIVE 02/10/2025K1 RESPIRATORY SYSTEM MANAGEMENT; RN TO ASSESS AND TEACH, PILOT PLANT SUPERVISOR/DERRICK MAN TO OBSERVE AND TEACH RELATED TO ALTERED RESPIRATORY STATUS TO MINIMIZE COMPLICATIONS AND REDUCE HOSPITALIZATION.] Future Scheduled Test TRACHEOSTO MY CARE MANAGEMENT; RN/PILOT PLANT SUPERVISOR/DERRICK MAN TO INSTRUCT PATIENT/CAREGIVER ON CARE AND MANAGEMENT OF TRACHEOSTOMY. RN/ PILOT PLANT SUPERVISOR/DERRICK MAN TO PROVIDE SKILLED TEACHING ON TRACH COLLAR SUCTIONING PRN WITH 14 FR SUCTION CATHETER PER PATIENT TRACH CARE WITH INNER CANNULA: REMOVE INNER CANNULA, CLEANSE WITH NORMAL SALINE AND OR STERILE WATER AND REINSERT NON-DISPOSABLE CANNULA SIZE OF INNER CANNULA 5 BROOKS [code = TRACHEOSTOMY CARE MANAGEMENT; RN/PILOT PLANT SUPERVISOR/DERRICK MAN TO INSTRUCT PATIENT/CAREGIVER ON CARE AND MANAGEMENT OF TRACHEOSTOMY. RN/ PILOT PLANT SUPERVISOR/DERRICK MAN TO PROVIDE SKILLED TEACHING ON TRACH COLLAR SUCTIONING PRN WITH 14 FR SUCTION CATHETER PER PATIENT TRACH CARE WITH INNER CANNULA: REMOVE INNER CANNULA, CLEANSE WITH NORMAL SALINE AND OR STERILE WATER AND REINSERT NON-DISPOSABLE CANNULA SIZE OF INNER CANNULA 5 BROOKS] Future Scheduled Test FALL REDUC TION MANAGEMENT; RN TO ASSESS AND OBSERVE, PILOT PLANT SUPERVISOR/DERRICK MAN TO OBSERVE FALL RISK FACTORS AND EDUCATE PATIENT/CAREGIVER ON STRATEGIES TO MINIMIZE THE RISK OF FALLING. [code = FALL REDUCTION MANAGEMENT; RN TO ASSESS AND OBSERVE, PILOT PLANT SUPERVISOR/DERRICK MAN TO OBSERVE FALL RISK FACTORS AND EDUCATE PATIENT/CAREGIVER ON STRATEGIES TO MINIMIZE THE RISK OF FALLING.] Future Scheduled Test ANEMIA MAN AGEMENT; RN TO ASSESS AND TEACH, DERRICK MAN/PILOT PLANT SUPERVISOR TO OBSERVE AND TEACH AND PROVIDE EDUCATION ON ANEMIA. [code = ANEMIA MANAGEMENT; RN TO ASSESS AND TEACH, DERRICK MAN/PILOT PLANT SUPERVISOR TO OBSERVE AND TEACH AND PROVIDE EDUCATION ON ANEMIA.] Future Scheduled Test RN TO OBSE RVE, ASSESS, EVALUATE, AND DEVELOP AN INDIVIDUALIZED PLAN OF CARE. AGENCY MAY ACCEPT ORDERS FROM CONSULTING PHYSICIANS RN TO OBSERVE AND ASSESS, PILOT PLANT SUPERVISOR/DERRICK MAN TO OBSERVE FOR RISK FOR FALLS AND INSTRUCT IN FALL PREVENTION, HOME SAFETY, MEDICATION MANAGEMENT, INFECTION PREVENTION, AND NUTRITION MANAGEMENT. RN/PILOT PLANT SUPERVISOR/DERRICK MAN NURSE MAY PERFORM O2 SATURATION LEVEL ON ADMISSION AND PRN FOR RN TO ASSESS/PILOT PLANT SUPERVISOR TO OBSERVE PATIENT, WITH NOTIFICATION TO THE PHYSICIAN IF SATURATION IS 90% IN THE ABSENCE OF MORE SPECIFIC PARAMETERS FROM THE PHYSICIAN. AGENCY MAY PERFORM A RESUMPTION OF CARE VISIT FOLLOWING ANY HOSPITAL ADMISSION. RN/PILOT PLANT SUPERVISOR/DERRICK MAN TO MONITOR CO-MORBID CONDITIONS LISTED ON THE PLAN OF CARE AND ANY NEW CONDITIONS THAT PRESENT THEMSELVES DURING THIS EPISODE TO IDENTIFY CHANGES AND INTERVENE TO MINIMIZE COMPLICATIONS. [code = RN TO OBSERVE, ASSESS, EVALUATE, AND DEVELOP AN INDIVIDUALIZED PLAN OF CARE. AGENCY MAY ACCEPT ORDERS FROM CONSULTING PHYSICIANS RN TO OBSERVE AND ASSESS, PILOT PLANT SUPERVISOR/DERRICK MAN TO OBSERVE FOR RISK FOR FALLS AND INSTRUCT IN FALL PREVENTION, HOME SAFETY, MEDICATION MANAGEMENT, INFECTION PREVENTION, AND NUTRITION MANAGEMENT. RN/PILOT PLANT SUPERVISOR/DERRICK MAN NURSE MAY PERFORM O2 SATURATION LEVEL ON ADMISSION AND PRN FOR RN TO ASSESS/PILOT PLANT SUPERVISOR TO OBSERVE PATIENT, WITH NOTIFICATION TO THE PHYSICIAN IF SATURATION IS 90% IN THE ABSENCE OF MORE SPECIFIC PARAMETERS FROM THE PHYSICIAN. AGENCY MAY PERFORM A RESUMPTION OF CARE VISIT FOLLOWING ANY HOSPITAL ADMISSION. RN/PILOT PLANT SUPERVISOR/DERRICK MAN TO MONITOR CO-MORBID CONDITIONS LISTED ON THE PLAN OF CARE AND ANY NEW CONDITIONS THAT PRESENT THEMSELVES DURING THIS EPISODE TO IDENTIFY CHANGES AND INTERVENE TO MINIMIZE COMPLICATIONS.] Future Scheduled Test PAIN MANAG EMENT; RN TO ASSESS AND TEACH, DERRICK MAN/PILOT PLANT SUPERVISOR TO OBSERVE AND TEACH AND PROVIDE EDUCATION ON PAIN MANAGEMENT TECHNIQUES. [code = PAIN MANAGEMENT; RN TO ASSESS AND TEACH, DERRICK MAN/PILOT PLANT SUPERVISOR TO OBSERVE AND TEACH AND PROVIDE EDUCATION ON PAIN MANAGEMENT TECHNIQUES.] Future Scheduled Test RISK FOR H OSPITALIZATION; RN TO ASSESS/TEACH, DERRICK MAN/PILOT PLANT SUPERVISOR TO OBSERVE/TEACH PATIENT/CAREGIVER ON RISK FOR HOSPITALIZATION/EMERGENCY ROOM VISITS, TEACH SIGNS AND SYMPTOMS THAT PUT PATIENT AT RISK, WHEN TO NOTIFY NURSE/PHYSICIAN OF COMPLICATIONS/DECLINE, AND WHEN TO CALL 911. [code = RISK FOR HOSPITALIZATION; RN TO ASSESS/TEACH, DERRICK MAN/PILOT PLANT SUPERVISOR TO OBSERVE/TEACH PATIENT/CAREGIVER ON RISK FOR HOSPITALIZATION/EMERGENCY ROOM VISITS, TEACH SIGNS AND SYMPTOMS THAT PUT PATIENT AT RISK, WHEN TO NOTIFY NURSE/PHYSICIAN OF COMPLICATIONS/DECLINE, AND WHEN TO CALL 911.] Future Scheduled Test CARDIOVASC ULAR SYSTEM; RN TO ASSESS/TEACH, PILOT PLANT SUPERVISOR/DERRICK MAN TO OBSERVE/TEACH RELATED TO ALTERED CARDIOVASCULAR STATUS TO MINIMIZE COMPLICATIONS AND REDUCE HOSPITALIZATION. [code = CARDIOVASCULAR SYSTEM; RN TO ASSESS/TEACH, PILOT PLANT SUPERVISOR/DERRICK MAN TO OBSERVE/TEACH RELATED TO ALTERED CARDIOVASCULAR STATUS TO MINIMIZE COMPLICATIONS AND REDUCE HOSPITALIZATION.] Future Scheduled Test HYPERTENSI ON MANAGEMENT; RN TO ASSESS AND TEACH, PILOT PLANT SUPERVISOR/DERRICK MAN TO OBSERVE AND TEACH WARNING SIGNS AND SYMPTOMS TO AVOID HOSPITALIZATION. [code = HYPERTENSION MANAGEMENT; RN TO ASSESS AND TEACH, PILOT PLANT SUPERVISOR/DERRICK MAN TO OBSERVE AND TEACH WARNING SIGNS AND SYMPTOMS TO AVOID HOSPITALIZATION.] Future Scheduled Test HEART FAIL URE MONITORING RN/DERRICK MAN/PILOT PLANT SUPERVISOR TO MONITOR PATIENT FOR SIGNS AND SYMPTOMS OF HEART FAILURE EXACERBATION, MONITOR FOR ADHERENCE WITH MEDICATION AND HEART FAILURE MANAGEMENT REGIMEN. [code = HEART FAILURE MONITORING RN/DERRICK MAN/PILOT PLANT SUPERVISOR TO MONITOR PATIENT FOR SIGNS AND SYMPTOMS OF HEART FAILURE EXACERBATION, MONITOR FOR ADHERENCE WITH MEDICATION AND HEART FAILURE MANAGEMENT REGIMEN.] Future Scheduled Test DIABETES M ONITORING RN/DERRICK MAN/PILOT PLANT SUPERVISOR TO MONITOR BLOOD SUGAR LOG FOR BLOOD SUGAR READINGS THAT ARE BEING CHECKED BY PATIENT, CAREGIVER NEEDED FOR SIGNS AND SYMPTOMS OF HYPER/HYPOGLYCEMIA. PATIENT THERAPEUTIC BLOOD SUGAR PARAMETERS ARE 70 - 300. REPORT BLOOD SUGARS OUT OF RANGE TO PHYSICIAN. NURSE MAY PERFORM FINGER STICK BLOOD GLUCOSE NEEDED FOR SIGNS AND SYMPTOMS OF HYPO AND HYPERGLYCEMIA. RN/DERRICK MAN/PILOT PLANT SUPERVISOR TO MONITOR ADHERENCE OF PATIENT/CAREGIVER PERFORMING DIABETIC FOOT CARE AND MAY PERFORM DIABETIC FOOT CARE PRN. RN/DERRICK MAN/PILOT PLANT SUPERVISOR TO MONITOR FOR ADHERENCE TO DIABETIC SELF-CARE AND MANAGEMENT INCLUDING MEDICATIONS. [code = DIABETES MONITORING RN/DERRICK MAN/PILOT PLANT SUPERVISOR TO MONITOR BLOOD SUGAR LOG FOR BLOOD SUGAR READINGS THAT ARE BEING CHECKED BY PATIENT, CAREGIVER NEEDED FOR SIGNS AND SYMPTOMS OF HYPER/HYPOGLYCEMIA. PATIENT THERAPEUTIC BLOOD SUGAR PARAMETERS ARE 70 - 300. REPORT BLOOD SUGARS OUT OF RANGE TO PHYSICIAN. NURSE MAY PERFORM FINGER STICK BLOOD GLUCOSE NEEDED FOR SIGNS AND SYMPTOMS OF HYPO AND HYPERGLYCEMIA. RN/DERRICK MAN/PILOT PLANT SUPERVISOR TO MONITOR ADHERENCE OF PATIENT/CAREGIVER PERFORMING DIABETIC FOOT CARE AND MAY PERFORM DIABETIC FOOT CARE PRN. RN/DERRICK MAN/PILOT PLANT SUPERVISOR TO MONITOR FOR ADHERENCE TO DIABETIC SELF-CARE AND MANAGEMENT INCLUDING MEDICATIONS.] Future Scheduled Test HYPOTENSIO N MANAGEMENT; RN TO ASSESS AND TEACH/ PILOT PLANT SUPERVISOR /DERRICK MAN TO OBSERVE AND TEACH WARNING SIGNS AND SYMPTOMS TO AVOID HOSPITALIZATION. [code = HYPOTENSION MANAGEMENT; RN TO ASSESS AND TEACH/ PILOT PLANT SUPERVISOR /DERRICK MAN TO OBSERVE AND TEACH WARNING SIGNS AND SYMPTOMS TO AVOID HOSPITALIZATION.] Future Scheduled Test ARRHYTHMIA MANAGEMENT; RN TO ASSESS AND TEACH, PILOT PLANT SUPERVISOR/DERRICK MAN TO OBSERVE AND TEACH WARNING SIGNS AND SYMPTOMS TO AVOID HOSPITALIZATION. [code = ARRHYTHMIA MANAGEMENT; RN TO ASSESS AND TEACH, PILOT PLANT SUPERVISOR/DERRICK MAN TO OBSERVE AND TEACH WARNING SIGNS AND SYMPTOMS TO AVOID HOSPITALIZATION.] Future Scheduled Test MEDICATION MANAGEMENT; RN/PILOT PLANT SUPERVISOR/DERRICK MAN TO REVIEW MEDICATIONS FOR INTERACTIONS, EFFECTIVENESS OF DRUG THERAPY, AND SIGNS/SYMPTOMS OF ADVERSE REACTIONS. MAY INSTRUCT AND REINFORCE MEDICATION TEACHING RELATED TO THE USE OF MEDICATIONS, DOSAGE, FREQUENCY, PURPOSE, SIDE EFFECTS, AND TO REPORT COMPLICATIONS. [code = MEDICATION MANAGEMENT; RN/PILOT PLANT SUPERVISOR/DERRICK MAN TO REVIEW MEDICATIONS FOR INTERACTIONS, EFFECTIVENESS [...] EVAL UATE, OBSERVE / ASSESS, AND MONITOR, TRANSITION MGR RN TO OBSERVE AND MONITOR, PROVIDE SKILLED THERAPEUTIC INTERVENTION, ACTIVITY, EDUCATION, AND TRAINING TO ADDRESS GEN. WEAKNESS, POOR OVERALL ACTIVITY TOLERANCE, AND FUNCTIONAL LIMITATIONS IMPACTING SAFETY AND INDEPENDENCE. BED MOBILITY (PT/TRANSITION MGR RN) PT/TRANSITION MGR RN TO PROVIDE GAIT TRAINING FOR IMPROVED MOBILITY AND /OR TO NORMALIZE GAIT PATTERN THERAPEUTIC EXERCISES AND ESTABLISHING A HOME EXERCISE PROGRAM (PT/TRANSITION MGR RN) PT/TRANSITION MGR RN TO PROVIDE STAIR TRAINING PT / TRANSITION MGR RN TO MONITOR AND EDUCATE ON OXYGEN SATURATION DURING ADLS/IADLS, NOTIFY PHYSICIAN AND/OR THE RN CLINICAL FOOD TASTER FOR PHYSICIAN NOTIFICATION AND IF O2 SATS BELOW PHYSICIAN ORDERED PARAMETERS AFTER 10 MIN OF REST PT / TRANSITION MGR RN TO OBSERVE FOR EARLY SIGNS AND SYMPTOMS OF DEPRESSION OR DEPRESSION GETTING WORSE AND TO EDUCATE ON HOW TO FIND HELP. PT / TRANSITION MGR RN MAY EDUCATE ON PAIN MANAGEMENT CLINICALLY INDICATED, INCLUDING NON-PHARMACOLOGICAL PAIN REDUCTION TECHNIQUES PT / TRANSITION MGR RN TO MONITOR FOR HYPO/HYPERGLYCEMIA AND CONDUCT ROUTINE FOOT INSPECTIONS. RECORD PATIENT REPORTED BLOOD SUGAR LEVELS AND NOTIFY PHYSICIAN AND/OR THE RN CLINICAL FOOD TASTER FOR PHYSICIAN NOTIFICATION IF BLOOD SUGAR LEVELS ARE OUTSIDE ORDERED PARAMETERS. TEACH PATIENT/CAREGIVER ON DAILY FOOT INSPECTIONS PT / TRANSITION MGR RN TO INSTRUCT PATIENT/CAREGIVER ON RISK FOR HOSPITALIZATION/EMERGENCY ROOM VISITS, TEACH SIGNS AND SYMPTOMS THAT PUT PATIENT AT RISK, WHEN TO NOTIFY NURSE/PHYSICIAN OF COMPLICATIONS/DECLINE, AND WHEN TO CALL 911. PT/TRANSITION MGR RN TO EDUCATE ON ARTHRITIS SELF-MANAGEMENT PT / TRANSITION MGR RN TO EDUCATE ON HEART FAILURE SELF-MANAGEMENT PT / TRANSITION MGR RN TO EDUCATE ON HYPERTENSION SELF-MANAGEMENT PT TO ASSESS / TRANSITION MGR RN TO MONITOR CARDIO/RESPIRATORY SYSTEM; AND NOTIFY THE PHYSICIAN AND/OR THE RN CLINICAL FOOD TASTER FOR PHYSICIAN NOTIFICATION FOR EARLY SIGNS AND SYMPTOMS OF EXACERBATION OR DETERIORATION. PT / TRANSITION MGR RN TO EDUCATE ON ATRIAL FIBRILLATION SELF-MANAGEMENT. PT / TRANSITION MGR RN TO EDUCATE ON PNEUMONIA / ASPIRATION PNEUMONIA SELF-MANAGEMENT. PT/TRANSITION MGR RN TO IDENTIFY FALL RISK FACTORS; EDUCATE THE PATIENT/CAREGIVER ON WAYS TO REDUCE FALL RISK FACTORS AND ESTABLISH HOME EXERCISE PROGRAM TO MINIMIZE FALL RISK. MAY TEACH THE PATIENT FLOOR RECOVERY WHEN CLINICALLY APPROPRIATE [code = PT TO EVALUATE, OBSERVE / ASSESS, AND MONITOR, TRANSITION MGR RN TO OBSERVE AND MONITOR, PROVIDE SKILLED THERAPEUTIC INTERVENTION, ACTIVITY, EDUCATION, AND TRAINING TO ADDRESS GEN. WEAKNESS, POOR OVERALL ACTIVITY TOLERANCE, AND FUNCTIONAL LIMITATIONS IMPACTING SAFETY AND INDEPENDENCE. BED MOBILITY (PT/TRANSITION MGR RN) PT/TRANSITION MGR RN TO PROVIDE GAIT TRAINING FOR IMPROVED MOBILITY AND /OR TO NORMALIZE GAIT PATTERN THERAPEUTIC EXERCISES AND ESTABLISHING A HOME EXERCISE PROGRAM (PT/TRANSITION MGR RN) PT/TRANSITION MGR RN TO PROVIDE STAIR TRAINING PT / TRANSITION MGR RN TO MONITOR AND EDUCATE ON OXYGEN SATURATION DURING ADLS/IADLS, NOTIFY PHYSICIAN AND/OR THE RN CLINICAL FOOD TASTER FOR PHYSICIAN NOTIFICATION AND IF O2 SATS BELOW PHYSICIAN ORDERED PARAMETERS AFTER 10 MIN OF REST PT / TRANSITION MGR RN TO OBSERVE FOR EARLY SIGNS AND SYMPTOMS OF DEPRESSION OR DEPRESSION GETTING WORSE AND TO EDUCATE ON HOW TO FIND HELP. PT / TRANSITION MGR RN MAY EDUCATE ON PAIN MANAGEMENT CLINICALLY INDICATED, INCLUDING NON-PHARMACOLOGICAL PAIN REDUCTION TECHNIQUES PT / TRANSITION MGR RN TO MONITOR FOR HYPO/HYPERGLYCEMIA AND CONDUCT ROUTINE FOOT INSPECTIONS. RECORD PATIENT REPORTED BLOOD SUGAR LEVELS AND NOTIFY PHYSICIAN AND/OR THE RN CLINICAL FOOD TASTER FOR PHYSICIAN NOTIFICATION IF BLOOD SUGAR LEVELS ARE OUTSIDE ORDERED PARAMETERS. TEACH PATIENT/CAREGIVER ON DAILY FOOT INSPECTIONS PT / TRANSITION MGR RN TO INSTRUCT PATIENT/CAREGIVER ON RISK FOR HOSPITALIZATION/EMERGENCY ROOM VISITS, TEACH SIGNS AND SYMPTOMS THAT PUT PATIENT AT RISK, WHEN TO NOTIFY NURSE/PHYSICIAN OF COMPLICATIONS/DECLINE, AND WHEN TO CALL 911. PT/TRANSITION MGR RN TO EDUCATE ON ARTHRITIS SELF-MANAGEMENT PT / TRANSITION MGR RN TO EDUCATE ON HEART FAILURE SELF-MANAGEMENT PT / TRANSITION MGR RN TO EDUCATE ON HYPERTENSION SELF-MANAGEMENT PT TO ASSESS / TRANSITION MGR RN TO MONITOR CARDIO/RESPIRATORY SYSTEM; AND NOTIFY THE PHYSICIAN AND/OR THE RN CLINICAL FOOD TASTER FOR PHYSICIAN NOTIFICATION FOR EARLY SIGNS AND SYMPTOMS OF EXACERBATION OR DETERIORATION. PT / TRANSITION MGR RN TO EDUCATE ON ATRIAL FIBRILLATION SELF-MANAGEMENT. PT / TRANSITION MGR RN TO EDUCATE ON PNEUMONIA / ASPIRATION PNEUMONIA SELF-MANAGEMENT. PT/TRANSITION MGR RN TO IDENTIFY FALL RISK FACTORS; EDUCATE THE PATIENT/CAREGIVER ON WAYS TO REDUCE FALL RISK FACTORS AND ESTABLISH HOME EXERCISE PROGRAM TO MINIMIZE FALL RISK. MAY TEACH THE PATIENT FLOOR RECOVERY WHEN CLINICALLY APPROPRIATE] Future Scheduled Test AGENCY MAY PERFORM A RESUMPTION OF CARE VISIT FOLLOWING ANY HOSPITAL ADMISSION. OT TO EVALUATE, OBSERVE / ASSESS, AND MONITOR, CONTENT DEVELOPER TO OBSERVE AND MONITOR, PROVIDE SKILLED THERAPEUTIC INTERVENTION, ACTIVITY, EDUCATION, AND TRAINING TO ADDRESS SAFETY AND INDEPENDENCE OF ADLS AND FUNCTIONAL TRANSFERS IN HOME ENVIRONMENT. ACTIVITIES OF DAILY LIVING (OT/MARIANNE) THERAPEUTIC EXERCISE (OT/CONTENT DEVELOPER) ENERGY CONSERVATION/ACTIVITY DEMAND (OT/CONTENT DEVELOPER) OT/CONTENT DEVELOPER TO MONITOR AND EDUCATE ON OXYGEN SATURATION DURING ADLS/IADLS, NOTIFY PHYSICIAN AND/OR THE RN CLINICAL FOOD TASTER FOR PHYSICIAN NOTIFICATION AND IF O2 SATS BELOW 90% AFTER 10 MIN OF REST. OT / CONTENT DEVELOPER TO IDENTIFY FALL RISK FACTORS; EDUCATE THE PATIENT/CAREGIVER ON WAYS TO REDUCE FALL RISK FACTORS AND ESTABLISH HOME EXERCISE PROGRAM TO MINIMIZE FALL RISK. MAY TEACH THE PATIENT FLOOR RECOVERY WHEN CLINICALLY APPROPRIATE. OT/CONTENT DEVELOPER TO EDUCATE ON HYPERTENSION SELF-MANAGEMENT OT/MARIANNE TO EDUCATE ON ATRIAL FIBRILLATION SELF-MANAGEMENT. [code = AGENCY MAY PERFORM A RESUMPTION OF CARE VISIT FOLLOWING ANY HOSPITAL ADMISSION. OT TO EVALUATE, OBSERVE / ASSESS, AND MONITOR, CONTENT DEVELOPER TO OBSERVE AND MONITOR, PROVIDE SKILLED THERAPEUTIC INTERVENTION, ACTIVITY, EDUCATION, AND TRAINING TO ADDRESS SAFETY AND INDEPENDENCE OF ADLS AND FUNCTIONAL TRANSFERS IN HOME ENVIRONMENT. ACTIVITIES OF DAILY LIVING (OT/MARIANNE) THERAPEUTIC EXERCISE (OT/CONTENT DEVELOPER) ENERGY CONSERVATION/ACTIVITY DEMAND (OT/MARIANNE) OT/CONTENT DEVELOPER TO MONITOR AND EDUCATE ON OXYGEN SATURATION DURING ADLS/IADLS, NOTIFY PHYSICIAN AND/OR THE RN CLINICAL FOOD TASTER FOR PHYSICIAN NOTIFICATION AND IF O2 SATS BELOW 90% AFTER 10 MIN OF REST. OT / MARIANNE TO IDENTIFY FALL RISK FACTORS; EDUCATE THE PATIENT/CAREGIVER ON WAYS TO REDUCE FALL RISK FACTORS AND ESTABLISH HOME EXERCISE PROGRAM TO MINIMIZE FALL RISK. MAY TEACH THE PATIENT FLOOR RECOVERY WHEN CLINICALLY APPROPRIATE. OT/CONTENT DEVELOPER TO EDUCATE ON HYPERTENSION SELF-MANAGEMENT OT/MARIANNE [...] OF SKIN INTEGRITY ISSUES FROM SBA TO TN WITHIN 2 WKS. PT STG: PATIENT WILL [...] TO SAFELY NEGOTIATE STAIRS FROM SBA TO TN WITH 2 STEPS W/O HANDRAIL VIA FRONT [...] End Date/Time Encounter Type Admission Type Attending Rust Care Department Encounter ID Discharge Date Discharge Status Discharge Condition Discharge Reason Percent Goals Met 2025-02-07 00:00:00 2025-04-07 00:00:00 Outpatient NEW ADMISSION [facility] [id number] 26.42
--- OUTSIDE RECORDS SUMMARY | 2025-04-06 18:00 | XMS_ITS | Clinical Summary ---
Author Organization Unknown Care Team Providers Care Livestock Trucker Name Role Phone DIGNA ARIEL, ESTRELLA Unavailable Unava dinora STOKES RN, FRANKIE Unavailable Unavailabl e KARI PT, DIDI Unavailable Unavailable NAT MECHANICAL OPERATOR, GAUDENCIO Unavailable Unavailabl e RADHA OT, ROLANDO Unavailable Unavailable JOANNE STEVEN, HATTIE Unavailable Unavailable Payers Payer Name Policy Type Policy Number Effective Date Expira tion Date MEDICARE.[facility] [id number] Problems Condition Name Condition Details Condition Category [...] OF PNEUMONIA (RECURRENT) Active 02-07 00:00: 00 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) USE OF SYSTEMIC STEROIDS Active [...] 80 mg tablet 02-07 00:00: 00 Yes [id number] CHOLESTEROL 1 tablet DAILY 1 tablet DAILY (route: oral) Med Classific ation: Cardiovas cular Therapy Agents digoxin 125 mcg (0.125 mg) tablet 02-07 00:00: 00 02-21 23:59 :00 No [id number] HEART RHYTHM 1 tablet DAILY 1 tablet DAILY (route: oral) Med Classific ation: Cardiovas cular Therapy Agents escitalopra m 10 mg tablet 02-07 00:00: 00 Yes [id number] MOOD 1 tablet DAILY 1 tablet DAILY (route: oral) Med Classific ation: Central Nervous System Agents ezetimibe 10 mg tablet 02-07 00:00: 00 Yes [id number] CHOLESTEROL 1 tablet DAILY 1 tablet DAILY (route: oral) Med Classific ation: Cardiovas cular Therapy Agents metoprolol succinate ER 25 mg tablet,exte nded release 24 hr 02-07 00:00: 00 02-21 23:59 :00 No [id number] BLOOD PRESSURE 0.5 tablet DAILY 0.5 tablet DAILY (route: oral) Med Classific ation: Cardiovas cular Therapy Agents pantoprazol e 40 mg tablet,joão yed release 02-07 00:00: 00 02-21 23:59 :00 No [id number] STOMACH ACID 1 tablet DAILY 1 tablet DAILY (route: oral) Med Classific ation: Gastroint estinal Therapy Agents prednisone 5 mg tablet 02-07 00:00: 00 Yes [id number] ADRENAL INSUFFICIEN CY 1 tablet DAILY 1 tablet DAILY (route: oral) Med Classific ation: Endocrine spironolact one 25 mg tablet 02-07 00:00: 00 Yes [id number] FLUID RETENTION 0.5 tablet DAILY 0.5 tablet DAILY (route: oral) Med Classific ation: Cardiovas cular Therapy Agents tamsulosin 0.4 mg capsule 02-07 00:00: 00 02-21 23:59 :00 No [id number] URINARY HEALTH 1 capsule DAILY 1 capsule DAILY (route: oral) Med Classific ation: Genitouri nary Therapy acetaminoph en 325 mg tablet 2024-05 00:00: 00 Yes [id number] PAIN 2 tablet 2 TIMES DAILY 2 tablet 2 TIMES DAILY (route: oral) Med Classific ation: Analgesic , Anti-infl ammatory or Antipyret ic aspirin 81 mg tablet 2024-05 00:00: 00 Yes [id number] ANTICOAGULA NT 1 tablet DAILY 1 tablet DAILY (route: oral) Med Classific ation: Hematolog ical Agents ipratropium 0.5 mg-albutero l 3 mg (2.5 mg base)/3 mL nebulizatio n soln 2024-05 00:00: 00 Yes [id number] COPD 3 mL EVERY 6 HOURS 3 mL EVERY 6 HOURS (route: inhalation ) Med Classific ation: Respirato ry Therapy Agents Lanoxin 62.5 mcg (0.0625 mg) tablet 2024-05 00:00: 00 Yes [id number] CHF 1 tablet DAILY 1 tablet DAILY (route: oral) Med Classific ation: Cardiovas cular Therapy Agents Lasix 20 mg tablet 2024-05 00:00: 00 Yes [id number] CHF 1 tablet DAILY 1 tablet DAILY (route: oral) Med Classific ation: Cardiovas cular Therapy Agents Toprol XL 25 mg tablet,exte nded release 2024-05 00:00: 00 Yes [id number] BP 25 mg DAILY 25 mg DAILY [...] MANAGEMENT; RN TO ASSESS AND TEACH, MANAGER ENVIRONMENTAL AFFAIRS/MATHEMATICS INSTRUCTOR TO OBSERVE AND TEACH RELATED TO ALTERED RESPIRATORY STATUS TO MINIMIZE COMPLICATIONS AND REDUCE HOSPITALIZATION. [code = SN 1WK9 PT 1WK1 OT EFFECTIVE 02/10/2025K1 RESPIRATORY SYSTEM MANAGEMENT; RN TO ASSESS AND TEACH, MANAGER ENVIRONMENTAL AFFAIRS/MATHEMATICS INSTRUCTOR TO OBSERVE AND TEACH RELATED TO ALTERED RESPIRATORY STATUS TO MINIMIZE COMPLICATIONS AND REDUCE HOSPITALIZATION.] Future Scheduled Test TRACHEOSTO MY CARE MANAGEMENT; RN/MANAGER ENVIRONMENTAL AFFAIRS/MATHEMATICS INSTRUCTOR TO INSTRUCT PATIENT/CAREGIVER ON CARE AND MANAGEMENT OF TRACHEOSTOMY. RN/ MANAGER ENVIRONMENTAL AFFAIRS/MATHEMATICS INSTRUCTOR TO PROVIDE SKILLED TEACHING ON TRACH COLLAR SUCTIONING PRN WITH 14 FR SUCTION CATHETER PER PATIENT TRACH CARE WITH INNER CANNULA: REMOVE INNER CANNULA, CLEANSE WITH NORMAL SALINE AND OR STERILE WATER AND REINSERT NON-DISPOSABLE CANNULA SIZE OF INNER CANNULA 5 BROOKS [code = TRACHEOSTOMY CARE MANAGEMENT; RN/MANAGER ENVIRONMENTAL AFFAIRS/MATHEMATICS INSTRUCTOR TO INSTRUCT PATIENT/CAREGIVER ON CARE AND MANAGEMENT OF TRACHEOSTOMY. RN/ MANAGER ENVIRONMENTAL AFFAIRS/MATHEMATICS INSTRUCTOR TO PROVIDE SKILLED TEACHING ON TRACH COLLAR SUCTIONING PRN WITH 14 FR SUCTION CATHETER PER PATIENT TRACH CARE WITH INNER CANNULA: REMOVE INNER CANNULA, CLEANSE WITH NORMAL SALINE AND OR STERILE WATER AND REINSERT NON-DISPOSABLE CANNULA SIZE OF INNER CANNULA 5 BROOKS] Future Scheduled Test FALL REDUC TION MANAGEMENT; RN TO ASSESS AND OBSERVE, MANAGER ENVIRONMENTAL AFFAIRS/MATHEMATICS INSTRUCTOR TO OBSERVE FALL RISK FACTORS AND EDUCATE PATIENT/CAREGIVER ON STRATEGIES TO MINIMIZE THE RISK OF FALLING. [code = FALL REDUCTION MANAGEMENT; RN TO ASSESS AND OBSERVE, MANAGER ENVIRONMENTAL AFFAIRS/MATHEMATICS INSTRUCTOR TO OBSERVE FALL RISK FACTORS AND EDUCATE PATIENT/CAREGIVER ON STRATEGIES TO MINIMIZE THE RISK OF FALLING.] Future Scheduled Test ANEMIA MAN AGEMENT; RN TO ASSESS AND TEACH, MATHEMATICS INSTRUCTOR/MANAGER ENVIRONMENTAL AFFAIRS TO OBSERVE AND TEACH AND PROVIDE EDUCATION ON ANEMIA. [code = ANEMIA MANAGEMENT; RN TO ASSESS AND TEACH, MATHEMATICS INSTRUCTOR/MANAGER ENVIRONMENTAL AFFAIRS TO OBSERVE AND TEACH AND PROVIDE EDUCATION ON ANEMIA.] Future Scheduled Test RN TO OBSE RVE, ASSESS, EVALUATE, AND DEVELOP AN INDIVIDUALIZED PLAN OF CARE. AGENCY MAY ACCEPT ORDERS FROM CONSULTING PHYSICIANS RN TO OBSERVE AND ASSESS, MANAGER ENVIRONMENTAL AFFAIRS/MATHEMATICS INSTRUCTOR TO OBSERVE FOR RISK FOR FALLS AND INSTRUCT IN FALL PREVENTION, HOME SAFETY, MEDICATION MANAGEMENT, INFECTION PREVENTION, AND NUTRITION MANAGEMENT. RN/MANAGER ENVIRONMENTAL AFFAIRS/MATHEMATICS INSTRUCTOR NURSE MAY PERFORM O2 SATURATION LEVEL ON ADMISSION AND PRN FOR RN TO ASSESS/MANAGER ENVIRONMENTAL AFFAIRS TO OBSERVE PATIENT, WITH NOTIFICATION TO THE PHYSICIAN IF SATURATION IS 90% IN THE ABSENCE OF MORE SPECIFIC PARAMETERS FROM THE PHYSICIAN. AGENCY MAY PERFORM A RESUMPTION OF CARE VISIT FOLLOWING ANY HOSPITAL ADMISSION. RN/MANAGER ENVIRONMENTAL AFFAIRS/MATHEMATICS INSTRUCTOR TO MONITOR CO-MORBID CONDITIONS LISTED ON THE PLAN OF CARE AND ANY NEW CONDITIONS THAT PRESENT THEMSELVES DURING THIS EPISODE TO IDENTIFY CHANGES AND INTERVENE TO MINIMIZE COMPLICATIONS. [code = RN TO OBSERVE, ASSESS, EVALUATE, AND DEVELOP AN INDIVIDUALIZED PLAN OF CARE. AGENCY MAY ACCEPT ORDERS FROM CONSULTING PHYSICIANS RN TO OBSERVE AND ASSESS, MANAGER ENVIRONMENTAL AFFAIRS/MATHEMATICS INSTRUCTOR TO OBSERVE FOR RISK FOR FALLS AND INSTRUCT IN FALL PREVENTION, HOME SAFETY, MEDICATION MANAGEMENT, INFECTION PREVENTION, AND NUTRITION MANAGEMENT. RN/MANAGER ENVIRONMENTAL AFFAIRS/MATHEMATICS INSTRUCTOR NURSE MAY PERFORM O2 SATURATION LEVEL ON ADMISSION AND PRN FOR RN TO ASSESS/MANAGER ENVIRONMENTAL AFFAIRS TO OBSERVE PATIENT, WITH NOTIFICATION TO THE PHYSICIAN IF SATURATION IS 90% IN THE ABSENCE OF MORE SPECIFIC PARAMETERS FROM THE PHYSICIAN. AGENCY MAY PERFORM A RESUMPTION OF CARE VISIT FOLLOWING ANY HOSPITAL ADMISSION. RN/MANAGER ENVIRONMENTAL AFFAIRS/MATHEMATICS INSTRUCTOR TO MONITOR CO-MORBID CONDITIONS LISTED ON THE PLAN OF CARE AND ANY NEW CONDITIONS THAT PRESENT THEMSELVES DURING THIS EPISODE TO IDENTIFY CHANGES AND INTERVENE TO MINIMIZE COMPLICATIONS.] Future Scheduled Test PAIN MANAG EMENT; RN TO ASSESS AND TEACH, MATHEMATICS INSTRUCTOR/MANAGER ENVIRONMENTAL AFFAIRS TO OBSERVE AND TEACH AND PROVIDE EDUCATION ON PAIN MANAGEMENT TECHNIQUES. [code = PAIN MANAGEMENT; RN TO ASSESS AND TEACH, MATHEMATICS INSTRUCTOR/MANAGER ENVIRONMENTAL AFFAIRS TO OBSERVE AND TEACH AND PROVIDE EDUCATION ON PAIN MANAGEMENT TECHNIQUES.] Future Scheduled Test RISK FOR H OSPITALIZATION; RN TO ASSESS/TEACH, MATHEMATICS INSTRUCTOR/MANAGER ENVIRONMENTAL AFFAIRS TO OBSERVE/TEACH PATIENT/CAREGIVER ON RISK FOR HOSPITALIZATION/EMERGENCY ROOM VISITS, TEACH SIGNS AND SYMPTOMS THAT PUT PATIENT AT RISK, WHEN TO NOTIFY NURSE/PHYSICIAN OF COMPLICATIONS/DECLINE, AND WHEN TO CALL 911. [code = RISK FOR HOSPITALIZATION; RN TO ASSESS/TEACH, MATHEMATICS INSTRUCTOR/MANAGER ENVIRONMENTAL AFFAIRS TO OBSERVE/TEACH PATIENT/CAREGIVER ON RISK FOR HOSPITALIZATION/EMERGENCY ROOM VISITS, TEACH SIGNS AND SYMPTOMS THAT PUT PATIENT AT RISK, WHEN TO NOTIFY NURSE/PHYSICIAN OF COMPLICATIONS/DECLINE, AND WHEN TO CALL 911.] Future Scheduled Test CARDIOVASC ULAR SYSTEM; RN TO ASSESS/TEACH, MANAGER ENVIRONMENTAL AFFAIRS/MATHEMATICS INSTRUCTOR TO OBSERVE/TEACH RELATED TO ALTERED CARDIOVASCULAR STATUS TO MINIMIZE COMPLICATIONS AND REDUCE HOSPITALIZATION. [code = CARDIOVASCULAR SYSTEM; RN TO ASSESS/TEACH, MANAGER ENVIRONMENTAL AFFAIRS/MATHEMATICS INSTRUCTOR TO OBSERVE/TEACH RELATED TO ALTERED CARDIOVASCULAR STATUS TO MINIMIZE COMPLICATIONS AND REDUCE HOSPITALIZATION.] Future Scheduled Test HYPERTENSI ON MANAGEMENT; RN TO ASSESS AND TEACH, MANAGER ENVIRONMENTAL AFFAIRS/MATHEMATICS INSTRUCTOR TO OBSERVE AND TEACH WARNING SIGNS AND SYMPTOMS TO AVOID HOSPITALIZATION. [code = HYPERTENSION MANAGEMENT; RN TO ASSESS AND TEACH, MANAGER ENVIRONMENTAL AFFAIRS/MATHEMATICS INSTRUCTOR TO OBSERVE AND TEACH WARNING SIGNS AND SYMPTOMS TO AVOID HOSPITALIZATION.] Future Scheduled Test HEART FAIL URE MONITORING RN/MATHEMATICS INSTRUCTOR/MANAGER ENVIRONMENTAL AFFAIRS TO MONITOR PATIENT FOR SIGNS AND SYMPTOMS OF HEART FAILURE EXACERBATION, MONITOR FOR ADHERENCE WITH MEDICATION AND HEART FAILURE MANAGEMENT REGIMEN. [code = HEART FAILURE MONITORING RN/MATHEMATICS INSTRUCTOR/MANAGER ENVIRONMENTAL AFFAIRS TO MONITOR PATIENT FOR SIGNS AND SYMPTOMS OF HEART FAILURE EXACERBATION, MONITOR FOR ADHERENCE WITH MEDICATION AND HEART FAILURE MANAGEMENT REGIMEN.] Future Scheduled Test DIABETES M ONITORING RN/MATHEMATICS INSTRUCTOR/MANAGER ENVIRONMENTAL AFFAIRS TO MONITOR BLOOD SUGAR LOG FOR BLOOD SUGAR READINGS THAT ARE BEING CHECKED BY PATIENT, CAREGIVER NEEDED FOR SIGNS AND SYMPTOMS OF HYPER/HYPOGLYCEMIA. PATIENT THERAPEUTIC BLOOD SUGAR PARAMETERS ARE 70 - 300. REPORT BLOOD SUGARS OUT OF RANGE TO PHYSICIAN. NURSE MAY PERFORM FINGER STICK BLOOD GLUCOSE NEEDED FOR SIGNS AND SYMPTOMS OF HYPO AND HYPERGLYCEMIA. RN/MATHEMATICS INSTRUCTOR/MANAGER ENVIRONMENTAL AFFAIRS TO MONITOR ADHERENCE OF PATIENT/CAREGIVER PERFORMING DIABETIC FOOT CARE AND MAY PERFORM DIABETIC FOOT CARE PRN. RN/MATHEMATICS INSTRUCTOR/MANAGER ENVIRONMENTAL AFFAIRS TO MONITOR FOR ADHERENCE TO DIABETIC SELF-CARE AND MANAGEMENT INCLUDING MEDICATIONS. [code = DIABETES MONITORING RN/MATHEMATICS INSTRUCTOR/MANAGER ENVIRONMENTAL AFFAIRS TO MONITOR BLOOD SUGAR LOG FOR BLOOD SUGAR READINGS THAT ARE BEING CHECKED BY PATIENT, CAREGIVER NEEDED FOR SIGNS AND SYMPTOMS OF HYPER/HYPOGLYCEMIA. PATIENT THERAPEUTIC BLOOD SUGAR PARAMETERS ARE 70 - 300. REPORT BLOOD SUGARS OUT OF RANGE TO PHYSICIAN. NURSE MAY PERFORM FINGER STICK BLOOD GLUCOSE NEEDED FOR SIGNS AND SYMPTOMS OF HYPO AND HYPERGLYCEMIA. RN/MATHEMATICS INSTRUCTOR/MANAGER ENVIRONMENTAL AFFAIRS TO MONITOR ADHERENCE OF PATIENT/CAREGIVER PERFORMING DIABETIC FOOT CARE AND MAY PERFORM DIABETIC FOOT CARE PRN. RN/MATHEMATICS INSTRUCTOR/MANAGER ENVIRONMENTAL AFFAIRS TO MONITOR FOR ADHERENCE TO DIABETIC SELF-CARE AND MANAGEMENT INCLUDING MEDICATIONS.] Future Scheduled Test HYPOTENSIO N MANAGEMENT; RN TO ASSESS AND TEACH/ MANAGER ENVIRONMENTAL AFFAIRS /MATHEMATICS INSTRUCTOR TO OBSERVE AND TEACH WARNING SIGNS AND SYMPTOMS TO AVOID HOSPITALIZATION. [code = HYPOTENSION MANAGEMENT; RN TO ASSESS AND TEACH/ MANAGER ENVIRONMENTAL AFFAIRS /MATHEMATICS INSTRUCTOR TO OBSERVE AND TEACH WARNING SIGNS AND SYMPTOMS TO AVOID HOSPITALIZATION.] Future Scheduled Test ARRHYTHMIA MANAGEMENT; RN TO ASSESS AND TEACH, MANAGER ENVIRONMENTAL AFFAIRS/MATHEMATICS INSTRUCTOR TO OBSERVE AND TEACH WARNING SIGNS AND SYMPTOMS TO AVOID HOSPITALIZATION. [code = ARRHYTHMIA MANAGEMENT; RN TO ASSESS AND TEACH, MANAGER ENVIRONMENTAL AFFAIRS/MATHEMATICS INSTRUCTOR TO OBSERVE AND TEACH WARNING SIGNS AND SYMPTOMS TO AVOID HOSPITALIZATION.] Future Scheduled Test MEDICATION MANAGEMENT; RN/MANAGER ENVIRONMENTAL AFFAIRS/MATHEMATICS INSTRUCTOR TO REVIEW MEDICATIONS FOR INTERACTIONS, EFFECTIVENESS OF DRUG THERAPY, AND SIGNS/SYMPTOMS OF ADVERSE REACTIONS. MAY INSTRUCT AND REINFORCE MEDICATION TEACHING RELATED TO THE USE OF MEDICATIONS, DOSAGE, FREQUENCY, PURPOSE, SIDE EFFECTS, AND TO REPORT COMPLICATIONS. [code = MEDICATION MANAGEMENT; RN/MANAGER ENVIRONMENTAL AFFAIRS/MATHEMATICS INSTRUCTOR TO REVIEW MEDICATIONS FOR INTERACTIONS, EFFECTIVENESS OF [...] EVAL UATE, OBSERVE / ASSESS, AND MONITOR, MECHANICAL OPERATOR TO OBSERVE AND MONITOR, PROVIDE SKILLED THERAPEUTIC INTERVENTION, ACTIVITY, EDUCATION, AND TRAINING TO ADDRESS GEN. WEAKNESS, POOR OVERALL ACTIVITY TOLERANCE, AND FUNCTIONAL LIMITATIONS IMPACTING SAFETY AND INDEPENDENCE. BED MOBILITY (PT/MECHANICAL OPERATOR) PT/MECHANICAL OPERATOR TO PROVIDE GAIT TRAINING FOR IMPROVED MOBILITY AND /OR TO NORMALIZE GAIT PATTERN THERAPEUTIC EXERCISES AND ESTABLISHING A HOME EXERCISE PROGRAM (PT/MECHANICAL OPERATOR) PT/MECHANICAL OPERATOR TO PROVIDE STAIR TRAINING PT / MECHANICAL OPERATOR TO MONITOR AND EDUCATE ON OXYGEN SATURATION DURING ADLS/IADLS, NOTIFY PHYSICIAN AND/OR THE RN CLINICAL RESOLUTION AGENT FOR PHYSICIAN NOTIFICATION AND IF O2 SATS BELOW PHYSICIAN ORDERED PARAMETERS AFTER 10 MIN OF REST PT / MECHANICAL OPERATOR TO OBSERVE FOR EARLY SIGNS AND SYMPTOMS OF DEPRESSION OR DEPRESSION GETTING WORSE AND TO EDUCATE ON HOW TO FIND HELP. PT / MECHANICAL OPERATOR MAY EDUCATE ON PAIN MANAGEMENT CLINICALLY INDICATED, INCLUDING NON-PHARMACOLOGICAL PAIN REDUCTION TECHNIQUES PT / MECHANICAL OPERATOR TO MONITOR FOR HYPO/HYPERGLYCEMIA AND CONDUCT ROUTINE FOOT INSPECTIONS. RECORD PATIENT REPORTED BLOOD SUGAR LEVELS AND NOTIFY PHYSICIAN AND/OR THE RN CLINICAL RESOLUTION AGENT FOR PHYSICIAN NOTIFICATION IF BLOOD SUGAR LEVELS ARE OUTSIDE ORDERED PARAMETERS. TEACH PATIENT/CAREGIVER ON DAILY FOOT INSPECTIONS PT / MECHANICAL OPERATOR TO INSTRUCT PATIENT/CAREGIVER ON RISK FOR HOSPITALIZATION/EMERGENCY ROOM VISITS, TEACH SIGNS AND SYMPTOMS THAT PUT PATIENT AT RISK, WHEN TO NOTIFY NURSE/PHYSICIAN OF COMPLICATIONS/DECLINE, AND WHEN TO CALL 911. PT/MECHANICAL OPERATOR TO EDUCATE ON ARTHRITIS SELF-MANAGEMENT PT / MECHANICAL OPERATOR TO EDUCATE ON HEART FAILURE SELF-MANAGEMENT PT / MECHANICAL OPERATOR TO EDUCATE ON HYPERTENSION SELF-MANAGEMENT PT TO ASSESS / MECHANICAL OPERATOR TO MONITOR CARDIO/RESPIRATORY SYSTEM; AND NOTIFY THE PHYSICIAN AND/OR THE RN CLINICAL RESOLUTION AGENT FOR PHYSICIAN NOTIFICATION FOR EARLY SIGNS AND SYMPTOMS OF EXACERBATION OR DETERIORATION. PT / MECHANICAL OPERATOR TO EDUCATE ON ATRIAL FIBRILLATION SELF-MANAGEMENT. PT / MECHANICAL OPERATOR TO EDUCATE ON PNEUMONIA / ASPIRATION PNEUMONIA SELF-MANAGEMENT. PT/MECHANICAL OPERATOR TO IDENTIFY FALL RISK FACTORS; EDUCATE THE PATIENT/CAREGIVER ON WAYS TO REDUCE FALL RISK FACTORS AND ESTABLISH HOME EXERCISE PROGRAM TO MINIMIZE FALL RISK. MAY TEACH THE PATIENT FLOOR RECOVERY WHEN CLINICALLY APPROPRIATE [code = PT TO EVALUATE, OBSERVE / ASSESS, AND MONITOR, MECHANICAL OPERATOR TO OBSERVE AND MONITOR, PROVIDE SKILLED THERAPEUTIC INTERVENTION, ACTIVITY, EDUCATION, AND TRAINING TO ADDRESS GEN. WEAKNESS, POOR OVERALL ACTIVITY TOLERANCE, AND FUNCTIONAL LIMITATIONS IMPACTING SAFETY AND INDEPENDENCE. BED MOBILITY (PT/MECHANICAL OPERATOR) PT/MECHANICAL OPERATOR TO PROVIDE GAIT TRAINING FOR IMPROVED MOBILITY AND /OR TO NORMALIZE GAIT PATTERN THERAPEUTIC EXERCISES AND ESTABLISHING A HOME EXERCISE PROGRAM (PT/MECHANICAL OPERATOR) PT/MECHANICAL OPERATOR TO PROVIDE STAIR TRAINING PT / MECHANICAL OPERATOR TO MONITOR AND EDUCATE ON OXYGEN SATURATION DURING ADLS/IADLS, NOTIFY PHYSICIAN AND/OR THE RN CLINICAL RESOLUTION AGENT FOR PHYSICIAN NOTIFICATION AND IF O2 SATS BELOW PHYSICIAN ORDERED PARAMETERS AFTER 10 MIN OF REST PT / MECHANICAL OPERATOR TO OBSERVE FOR EARLY SIGNS AND SYMPTOMS OF DEPRESSION OR DEPRESSION GETTING WORSE AND TO EDUCATE ON HOW TO FIND HELP. PT / MECHANICAL OPERATOR MAY EDUCATE ON PAIN MANAGEMENT CLINICALLY INDICATED, INCLUDING NON-PHARMACOLOGICAL PAIN REDUCTION TECHNIQUES PT / MECHANICAL OPERATOR TO MONITOR FOR HYPO/HYPERGLYCEMIA AND CONDUCT ROUTINE FOOT INSPECTIONS. RECORD PATIENT REPORTED BLOOD SUGAR LEVELS AND NOTIFY PHYSICIAN AND/OR THE RN CLINICAL RESOLUTION AGENT FOR PHYSICIAN NOTIFICATION IF BLOOD SUGAR LEVELS ARE OUTSIDE ORDERED PARAMETERS. TEACH PATIENT/CAREGIVER ON DAILY FOOT INSPECTIONS PT / MECHANICAL OPERATOR TO INSTRUCT PATIENT/CAREGIVER ON RISK FOR HOSPITALIZATION/EMERGENCY ROOM VISITS, TEACH SIGNS AND SYMPTOMS THAT PUT PATIENT AT RISK, WHEN TO NOTIFY NURSE/PHYSICIAN OF COMPLICATIONS/DECLINE, AND WHEN TO CALL 911. PT/MECHANICAL OPERATOR TO EDUCATE ON ARTHRITIS SELF-MANAGEMENT PT / MECHANICAL OPERATOR TO EDUCATE ON HEART FAILURE SELF-MANAGEMENT PT / MECHANICAL OPERATOR TO EDUCATE ON HYPERTENSION SELF-MANAGEMENT PT TO ASSESS / MECHANICAL OPERATOR TO MONITOR CARDIO/RESPIRATORY SYSTEM; AND NOTIFY THE PHYSICIAN AND/OR THE RN CLINICAL RESOLUTION AGENT FOR PHYSICIAN NOTIFICATION FOR EARLY SIGNS AND SYMPTOMS OF EXACERBATION OR DETERIORATION. PT / MECHANICAL OPERATOR TO EDUCATE ON ATRIAL FIBRILLATION SELF-MANAGEMENT. PT / MECHANICAL OPERATOR TO EDUCATE ON PNEUMONIA / ASPIRATION PNEUMONIA SELF-MANAGEMENT. PT/MECHANICAL OPERATOR TO IDENTIFY FALL RISK FACTORS; EDUCATE THE PATIENT/CAREGIVER ON WAYS TO REDUCE FALL RISK FACTORS AND ESTABLISH HOME EXERCISE PROGRAM TO MINIMIZE FALL RISK. MAY TEACH THE PATIENT FLOOR RECOVERY WHEN CLINICALLY APPROPRIATE] Future Scheduled Test AGENCY MAY PERFORM A RESUMPTION OF CARE VISIT FOLLOWING ANY HOSPITAL ADMISSION. OT TO EVALUATE, OBSERVE / ASSESS, AND MONITOR, CITY DETECTIVE TO OBSERVE AND MONITOR, PROVIDE SKILLED THERAPEUTIC INTERVENTION, ACTIVITY, EDUCATION, AND TRAINING TO ADDRESS SAFETY AND INDEPENDENCE OF ADLS AND FUNCTIONAL TRANSFERS IN HOME ENVIRONMENT. ACTIVITIES OF DAILY LIVING (OT/MARIANNE) THERAPEUTIC EXERCISE (OT/CITY DETECTIVE) ENERGY CONSERVATION/ACTIVITY DEMAND (OT/CITY DETECTIVE) OT/CITY DETECTIVE TO MONITOR AND EDUCATE ON OXYGEN SATURATION DURING ADLS/IADLS, NOTIFY PHYSICIAN AND/OR THE RN CLINICAL RESOLUTION AGENT FOR PHYSICIAN NOTIFICATION AND IF O2 SATS BELOW 90% AFTER 10 MIN OF REST. OT / CITY DETECTIVE TO IDENTIFY FALL RISK FACTORS; EDUCATE THE PATIENT/CAREGIVER ON WAYS TO REDUCE FALL RISK FACTORS AND ESTABLISH HOME EXERCISE PROGRAM TO MINIMIZE FALL RISK. MAY TEACH THE PATIENT FLOOR RECOVERY WHEN CLINICALLY APPROPRIATE. OT/CITY DETECTIVE TO EDUCATE ON HYPERTENSION SELF-MANAGEMENT OT/MARIANNE TO EDUCATE ON ATRIAL FIBRILLATION SELF-MANAGEMENT. [code = AGENCY MAY PERFORM A RESUMPTION OF CARE VISIT FOLLOWING ANY HOSPITAL ADMISSION. OT TO EVALUATE, OBSERVE / ASSESS, AND MONITOR, CITY DETECTIVE TO OBSERVE AND MONITOR, PROVIDE SKILLED THERAPEUTIC INTERVENTION, ACTIVITY, EDUCATION, AND TRAINING TO ADDRESS SAFETY AND INDEPENDENCE OF ADLS AND FUNCTIONAL TRANSFERS IN HOME ENVIRONMENT. ACTIVITIES OF DAILY LIVING (OT/MARIANNE) THERAPEUTIC EXERCISE (OT/CITY DETECTIVE) ENERGY CONSERVATION/ACTIVITY DEMAND (OT/MARIANNE) OT/CITY DETECTIVE TO MONITOR AND EDUCATE ON OXYGEN SATURATION DURING ADLS/IADLS, NOTIFY PHYSICIAN AND/OR THE RN CLINICAL RESOLUTION AGENT FOR PHYSICIAN NOTIFICATION AND IF O2 SATS BELOW 90% AFTER 10 MIN OF REST. OT / MARIANNE TO IDENTIFY FALL RISK FACTORS; EDUCATE THE PATIENT/CAREGIVER ON WAYS TO REDUCE FALL RISK FACTORS AND ESTABLISH HOME EXERCISE PROGRAM TO MINIMIZE FALL RISK. MAY TEACH THE PATIENT FLOOR RECOVERY WHEN CLINICALLY APPROPRIATE. OT/CITY DETECTIVE TO EDUCATE ON HYPERTENSION SELF-MANAGEMENT OT/MARIANNE TO [...] 2025-04-07 00:00:00 Outpatient NEW ADMISSION [facility] [id number]
--- OUTSIDE RECORDS SUMMARY | 2025-04-06 18:00 | XMS_ITS | Clinical Summary ---
Author Organization Unknown Care Team Providers Care Call Person Name Role Phone DIGNA ARIEL, ESTRELLA Unavailable Unava dinora STOKES RN, FRANKIE Unavailable Unavailabl e KARI PT, DIDI Unavailable Unavailable NAT GOLF RANGE ATTENDANT, GAUDENCIO Unavailable Unavailabl e RADHA OT, ROLANDO Unavailable Unavailable JOANNE STEVEN, HATTIE Unavailable Unavailable Payers Payer Name Policy Type Policy Number Effective Date Expira tion Date MEDICARE.[facility] [id number] Problems Condition Name Condition Details Condition Category Status Onset Date Resolution Date Last Treatment Date Treating Clinician Comments 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 02-07 [...] OF PNEUMONIA (RECURRENT) Active 02-07 00:00: 00 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) USE OF SYSTEMIC STEROIDS Active 02-07 [...] 80 mg tablet 02-07 00:00: 00 Yes [id number] CHOLESTEROL 1 tablet DAILY 1 tablet DAILY (route: oral) Med Classific ation: Cardiovas cular Therapy Agents digoxin 125 mcg (0.125 mg) tablet 02-07 00:00: 00 02-21 23:59 :00 No [id number] HEART RHYTHM 1 tablet DAILY 1 tablet DAILY (route: oral) Med Classific ation: Cardiovas cular Therapy Agents escitalopra m 10 mg tablet 02-07 00:00: 00 Yes [id number] MOOD 1 tablet DAILY 1 tablet DAILY (route: oral) Med Classific ation: Central Nervous System Agents ezetimibe 10 mg tablet 02-07 00:00: 00 Yes [id number] CHOLESTEROL 1 tablet DAILY 1 tablet DAILY (route: oral) Med Classific ation: Cardiovas cular Therapy Agents metoprolol succinate ER 25 mg tablet,exte nded release 24 hr 02-07 00:00: 00 02-21 23:59 :00 No [id number] BLOOD PRESSURE 0.5 tablet DAILY 0.5 tablet DAILY (route: oral) Med Classific ation: Cardiovas cular Therapy Agents pantoprazol e 40 mg tablet,joão yed release 02-07 00:00: 00 02-21 23:59 :00 No [id number] STOMACH ACID 1 tablet DAILY 1 tablet DAILY (route: oral) Med Classific ation: Gastroint estinal Therapy Agents prednisone 5 mg tablet 02-07 00:00: 00 Yes [id number] ADRENAL INSUFFICIEN CY 1 tablet DAILY 1 tablet DAILY (route: oral) Med Classific ation: Endocrine spironolact one 25 mg tablet 02-07 00:00: 00 Yes [id number] FLUID RETENTION 0.5 tablet DAILY 0.5 tablet DAILY (route: oral) Med Classific ation: Cardiovas cular Therapy Agents tamsulosin 0.4 mg capsule 02-07 00:00: 00 02-21 23:59 :00 No [id number] URINARY HEALTH 1 capsule DAILY 1 capsule DAILY (route: oral) Med Classific ation: Genitouri nary Therapy acetaminoph en 325 mg tablet 2024-05 00:00: 00 Yes [id number] PAIN 2 tablet 2 TIMES DAILY 2 tablet 2 TIMES DAILY (route: oral) Med Classific ation: Analgesic , Anti-infl ammatory or Antipyret ic aspirin 81 mg tablet 2024-05 00:00: 00 Yes [id number] ANTICOAGULA NT 1 tablet DAILY 1 tablet DAILY (route: oral) Med Classific ation: Hematolog ical Agents ipratropium 0.5 mg-albutero l 3 mg (2.5 mg base)/3 mL nebulizatio n soln 2024-05 00:00: 00 Yes [id number] COPD 3 mL EVERY 6 HOURS 3 mL EVERY 6 HOURS (route: inhalation ) Med Classific ation: Respirato ry Therapy Agents Lanoxin 62.5 mcg (0.0625 mg) tablet 2024-05 00:00: 00 Yes [id number] CHF 1 tablet DAILY 1 tablet DAILY (route: oral) Med Classific ation: Cardiovas cular Therapy Agents Lasix 20 mg tablet 2024-05 00:00: 00 Yes [id number] CHF 1 tablet DAILY 1 tablet DAILY (route: oral) Med Classific ation: Cardiovas cular Therapy Agents Toprol XL 25 mg tablet,exte nded release 2024-05 00:00: 00 Yes [id number] BP 25 mg DAILY 25 mg DAILY [...] SYSTEM MANAGEMENT; RN TO ASSESS AND TEACH, SECONDS HANDLER/GREIGE GOODS INSPECTOR TO OBSERVE AND TEACH RELATED TO ALTERED RESPIRATORY STATUS TO MINIMIZE COMPLICATIONS AND REDUCE HOSPITALIZATION. [code = SN 1WK9 PT 1WK1 OT EFFECTIVE 02/10/2025K1 RESPIRATORY SYSTEM MANAGEMENT; RN TO ASSESS AND TEACH, SECONDS HANDLER/GREIGE GOODS INSPECTOR TO OBSERVE AND TEACH RELATED TO ALTERED RESPIRATORY STATUS TO MINIMIZE COMPLICATIONS AND REDUCE HOSPITALIZATION.] Future Scheduled Test TRACHEOSTO MY CARE MANAGEMENT; RN/SECONDS HANDLER/GREIGE GOODS INSPECTOR TO INSTRUCT PATIENT/CAREGIVER ON CARE AND MANAGEMENT OF TRACHEOSTOMY. RN/ SECONDS HANDLER/GREIGE GOODS INSPECTOR TO PROVIDE SKILLED TEACHING ON TRACH COLLAR SUCTIONING PRN WITH 14 FR SUCTION CATHETER PER PATIENT TRACH CARE WITH INNER CANNULA: REMOVE INNER CANNULA, CLEANSE WITH NORMAL SALINE AND OR STERILE WATER AND REINSERT NON-DISPOSABLE CANNULA SIZE OF INNER CANNULA 5 BROOKS [code = TRACHEOSTOMY CARE MANAGEMENT; RN/SECONDS HANDLER/GREIGE GOODS INSPECTOR TO INSTRUCT PATIENT/CAREGIVER ON CARE AND MANAGEMENT OF TRACHEOSTOMY. RN/ SECONDS HANDLER/GREIGE GOODS INSPECTOR TO PROVIDE SKILLED TEACHING ON TRACH COLLAR SUCTIONING PRN WITH 14 FR SUCTION CATHETER PER PATIENT TRACH CARE WITH INNER CANNULA: REMOVE INNER CANNULA, CLEANSE WITH NORMAL SALINE AND OR STERILE WATER AND REINSERT NON-DISPOSABLE CANNULA SIZE OF INNER CANNULA 5 BROOKS] Future Scheduled Test FALL REDUC TION MANAGEMENT; RN TO ASSESS AND OBSERVE, SECONDS HANDLER/GREIGE GOODS INSPECTOR TO OBSERVE FALL RISK FACTORS AND EDUCATE PATIENT/CAREGIVER ON STRATEGIES TO MINIMIZE THE RISK OF FALLING. [code = FALL REDUCTION MANAGEMENT; RN TO ASSESS AND OBSERVE, SECONDS HANDLER/GREIGE GOODS INSPECTOR TO OBSERVE FALL RISK FACTORS AND EDUCATE PATIENT/CAREGIVER ON STRATEGIES TO MINIMIZE THE RISK OF FALLING.] Future Scheduled Test ANEMIA MAN AGEMENT; RN TO ASSESS AND TEACH, GREIGE GOODS INSPECTOR/SECONDS HANDLER TO OBSERVE AND TEACH AND PROVIDE EDUCATION ON ANEMIA. [code = ANEMIA MANAGEMENT; RN TO ASSESS AND TEACH, GREIGE GOODS INSPECTOR/SECONDS HANDLER TO OBSERVE AND TEACH AND PROVIDE EDUCATION ON ANEMIA.] Future Scheduled Test RN TO OBSE RVE, ASSESS, EVALUATE, AND DEVELOP AN INDIVIDUALIZED PLAN OF CARE. AGENCY MAY ACCEPT ORDERS FROM CONSULTING PHYSICIANS RN TO OBSERVE AND ASSESS, SECONDS HANDLER/GREIGE GOODS INSPECTOR TO OBSERVE FOR RISK FOR FALLS AND INSTRUCT IN FALL PREVENTION, HOME SAFETY, MEDICATION MANAGEMENT, INFECTION PREVENTION, AND NUTRITION MANAGEMENT. RN/SECONDS HANDLER/GREIGE GOODS INSPECTOR NURSE MAY PERFORM O2 SATURATION LEVEL ON ADMISSION AND PRN FOR RN TO ASSESS/SECONDS HANDLER TO OBSERVE PATIENT, WITH NOTIFICATION TO THE PHYSICIAN IF SATURATION IS 90% IN THE ABSENCE OF MORE SPECIFIC PARAMETERS FROM THE PHYSICIAN. AGENCY MAY PERFORM A RESUMPTION OF CARE VISIT FOLLOWING ANY HOSPITAL ADMISSION. RN/SECONDS HANDLER/GREIGE GOODS INSPECTOR TO MONITOR CO-MORBID CONDITIONS LISTED ON THE PLAN OF CARE AND ANY NEW CONDITIONS THAT PRESENT THEMSELVES DURING THIS EPISODE TO IDENTIFY CHANGES AND INTERVENE TO MINIMIZE COMPLICATIONS. [code = RN TO OBSERVE, ASSESS, EVALUATE, AND DEVELOP AN INDIVIDUALIZED PLAN OF CARE. AGENCY MAY ACCEPT ORDERS FROM CONSULTING PHYSICIANS RN TO OBSERVE AND ASSESS, SECONDS HANDLER/GREIGE GOODS INSPECTOR TO OBSERVE FOR RISK FOR FALLS AND INSTRUCT IN FALL PREVENTION, HOME SAFETY, MEDICATION MANAGEMENT, INFECTION PREVENTION, AND NUTRITION MANAGEMENT. RN/SECONDS HANDLER/GREIGE GOODS INSPECTOR NURSE MAY PERFORM O2 SATURATION LEVEL ON ADMISSION AND PRN FOR RN TO ASSESS/SECONDS HANDLER TO OBSERVE PATIENT, WITH NOTIFICATION TO THE PHYSICIAN IF SATURATION IS 90% IN THE ABSENCE OF MORE SPECIFIC PARAMETERS FROM THE PHYSICIAN. AGENCY MAY PERFORM A RESUMPTION OF CARE VISIT FOLLOWING ANY HOSPITAL ADMISSION. RN/SECONDS HANDLER/GREIGE GOODS INSPECTOR TO MONITOR CO-MORBID CONDITIONS LISTED ON THE PLAN OF CARE AND ANY NEW CONDITIONS THAT PRESENT THEMSELVES DURING THIS EPISODE TO IDENTIFY CHANGES AND INTERVENE TO MINIMIZE COMPLICATIONS.] Future Scheduled Test PAIN MANAG EMENT; RN TO ASSESS AND TEACH, GREIGE GOODS INSPECTOR/SECONDS HANDLER TO OBSERVE AND TEACH AND PROVIDE EDUCATION ON PAIN MANAGEMENT TECHNIQUES. [code = PAIN MANAGEMENT; RN TO ASSESS AND TEACH, GREIGE GOODS INSPECTOR/SECONDS HANDLER TO OBSERVE AND TEACH AND PROVIDE EDUCATION ON PAIN MANAGEMENT TECHNIQUES.] Future Scheduled Test RISK FOR H OSPITALIZATION; RN TO ASSESS/TEACH, [employer]E GOODS INSPECTOR/SECONDS HANDLER TO OBSERVE/TEACH PATIENT/CAREGIVER ON RISK FOR HOSPITALIZATION/EMERGENCY ROOM VISITS, TEACH SIGNS AND SYMPTOMS THAT PUT PATIENT AT RISK, WHEN TO NOTIFY NURSE/PHYSICIAN OF COMPLICATIONS/DECLINE, AND WHEN TO CALL 911. [code = RISK FOR HOSPITALIZATION; RN TO ASSESS/TEACH, GREIGE GOODS INSPECTOR/SECONDS HANDLER TO OBSERVE/TEACH PATIENT/CAREGIVER ON RISK FOR HOSPITALIZATION/EMERGENCY ROOM VISITS, TEACH SIGNS AND SYMPTOMS THAT PUT PATIENT AT RISK, WHEN TO NOTIFY NURSE/PHYSICIAN OF COMPLICATIONS/DECLINE, AND WHEN TO CALL 911.] Future Scheduled Test CARDIOVASC ULAR SYSTEM; RN TO ASSESS/TEACH, SECONDS HANDLER/GREIGE GOODS INSPECTOR TO OBSERVE/TEACH RELATED TO ALTERED CARDIOVASCULAR STATUS TO MINIMIZE COMPLICATIONS AND REDUCE HOSPITALIZATION. [code = CARDIOVASCULAR SYSTEM; RN TO ASSESS/TEACH, SECONDS HANDLER/GREIGE GOODS INSPECTOR TO OBSERVE/TEACH RELATED TO ALTERED CARDIOVASCULAR STATUS TO MINIMIZE COMPLICATIONS AND REDUCE HOSPITALIZATION.] Future Scheduled Test HYPERTENSI ON MANAGEMENT; RN TO ASSESS AND TEACH, SECONDS HANDLER/GREIGE GOODS INSPECTOR TO OBSERVE AND TEACH WARNING SIGNS AND SYMPTOMS TO AVOID HOSPITALIZATION. [code = HYPERTENSION MANAGEMENT; RN TO ASSESS AND TEACH, SECONDS HANDLER/GREIGE GOODS INSPECTOR TO OBSERVE AND TEACH WARNING SIGNS AND SYMPTOMS TO AVOID HOSPITALIZATION.] Future Scheduled Test HEART FAIL URE MONITORING RN/GREIGE GOODS INSPECTOR/SECONDS HANDLER TO MONITOR PATIENT FOR SIGNS AND SYMPTOMS OF HEART FAILURE EXACERBATION, MONITOR FOR ADHERENCE WITH MEDICATION AND HEART FAILURE MANAGEMENT REGIMEN. [code = HEART FAILURE MONITORING RN/GREIGE GOODS INSPECTOR/SECONDS HANDLER TO MONITOR PATIENT FOR SIGNS AND SYMPTOMS OF HEART FAILURE EXACERBATION, MONITOR FOR ADHERENCE WITH MEDICATION AND HEART FAILURE MANAGEMENT REGIMEN.] Future Scheduled Test DIABETES M ONITORING RN/GREIGE GOODS INSPECTOR/SECONDS HANDLER TO MONITOR BLOOD SUGAR LOG FOR BLOOD SUGAR READINGS THAT ARE BEING CHECKED BY PATIENT, CAREGIVER NEEDED FOR SIGNS AND SYMPTOMS OF HYPER/HYPOGLYCEMIA. PATIENT THERAPEUTIC BLOOD SUGAR PARAMETERS ARE 70 - 300. REPORT BLOOD SUGARS OUT OF RANGE TO PHYSICIAN. NURSE MAY PERFORM FINGER STICK BLOOD GLUCOSE NEEDED FOR SIGNS AND SYMPTOMS OF HYPO AND HYPERGLYCEMIA. RN/GREIGE GOODS INSPECTOR/SECONDS HANDLER TO MONITOR ADHERENCE OF PATIENT/CAREGIVER PERFORMING DIABETIC FOOT CARE AND MAY PERFORM DIABETIC FOOT CARE PRN. RN/GREIGE GOODS INSPECTOR/SECONDS HANDLER TO MONITOR FOR ADHERENCE TO DIABETIC SELF-CARE AND MANAGEMENT INCLUDING MEDICATIONS. [code = DIABETES MONITORING RN/GREIGE GOODS INSPECTOR/SECONDS HANDLER TO MONITOR BLOOD SUGAR LOG FOR BLOOD SUGAR READINGS THAT ARE BEING CHECKED BY PATIENT, CAREGIVER NEEDED FOR SIGNS AND SYMPTOMS OF HYPER/HYPOGLYCEMIA. PATIENT THERAPEUTIC BLOOD SUGAR PARAMETERS ARE 70 - 300. REPORT BLOOD SUGARS OUT OF RANGE TO PHYSICIAN. NURSE MAY PERFORM FINGER STICK BLOOD GLUCOSE NEEDED FOR SIGNS AND SYMPTOMS OF HYPO AND HYPERGLYCEMIA. RN/GREIGE GOODS INSPECTOR/SECONDS HANDLER TO MONITOR ADHERENCE OF PATIENT/CAREGIVER PERFORMING DIABETIC FOOT CARE AND MAY PERFORM DIABETIC FOOT CARE PRN. RN/GREIGE GOODS INSPECTOR/SECONDS HANDLER TO MONITOR FOR ADHERENCE TO DIABETIC SELF-CARE AND MANAGEMENT INCLUDING MEDICATIONS.] Future Scheduled Test HYPOTENSIO N MANAGEMENT; RN TO ASSESS AND TEACH/ SECONDS HANDLER /GREIGE GOODS INSPECTOR TO OBSERVE AND TEACH WARNING SIGNS AND SYMPTOMS TO AVOID HOSPITALIZATION. [code = HYPOTENSION MANAGEMENT; RN TO ASSESS AND TEACH/ SECONDS HANDLER /GREIGE GOODS INSPECTOR TO OBSERVE AND TEACH WARNING SIGNS AND SYMPTOMS TO AVOID HOSPITALIZATION.] Future Scheduled Test ARRHYTHMIA MANAGEMENT; RN TO ASSESS AND TEACH, SECONDS HANDLER/GREIGE GOODS INSPECTOR TO OBSERVE AND TEACH WARNING SIGNS AND SYMPTOMS TO AVOID HOSPITALIZATION. [code = ARRHYTHMIA MANAGEMENT; RN TO ASSESS AND TEACH, SECONDS HANDLER/GREIGE GOODS INSPECTOR TO OBSERVE AND TEACH WARNING SIGNS AND SYMPTOMS TO AVOID HOSPITALIZATION.] Future Scheduled Test MEDICATION MANAGEMENT; RN/SECONDS HANDLER/GREIGE GOODS INSPECTOR TO REVIEW MEDICATIONS FOR INTERACTIONS, EFFECTIVENESS OF DRUG THERAPY, AND SIGNS/SYMPTOMS OF ADVERSE REACTIONS. MAY INSTRUCT AND REINFORCE MEDICATION TEACHING RELATED TO THE USE OF MEDICATIONS, DOSAGE, FREQUENCY, PURPOSE, SIDE EFFECTS, AND TO REPORT COMPLICATIONS. [code = MEDICATION MANAGEMENT; RN/SECONDS HANDLER/GREIGE GOODS INSPECTOR TO REVIEW MEDICATIONS FOR INTERACTIONS, EFFECTIVENESS OF [...] EVAL UATE, OBSERVE / ASSESS, AND MONITOR, GOLF RANGE ATTENDANT TO OBSERVE AND MONITOR, PROVIDE SKILLED THERAPEUTIC INTERVENTION, ACTIVITY, EDUCATION, AND TRAINING TO ADDRESS GEN. WEAKNESS, POOR OVERALL ACTIVITY TOLERANCE, AND FUNCTIONAL LIMITATIONS IMPACTING SAFETY AND INDEPENDENCE. BED MOBILITY (PT/GOLF RANGE ATTENDANT) PT/GOLF RANGE ATTENDANT TO PROVIDE GAIT TRAINING FOR IMPROVED MOBILITY AND /OR TO NORMALIZE GAIT PATTERN THERAPEUTIC EXERCISES AND ESTABLISHING A HOME EXERCISE PROGRAM (PT/GOLF RANGE ATTENDANT) PT/GOLF RANGE ATTENDANT TO PROVIDE STAIR TRAINING PT / GOLF RANGE ATTENDANT TO MONITOR AND EDUCATE ON OXYGEN SATURATION DURING ADLS/IADLS, NOTIFY PHYSICIAN AND/OR THE RN CLINICAL PACKING HOUSE SUPERVISOR FOR PHYSICIAN NOTIFICATION AND IF O2 SATS BELOW PHYSICIAN ORDERED PARAMETERS AFTER 10 MIN OF REST PT / GOLF RANGE ATTENDANT TO OBSERVE FOR EARLY SIGNS AND SYMPTOMS OF DEPRESSION OR DEPRESSION GETTING WORSE AND TO EDUCATE ON HOW TO FIND HELP. PT / GOLF RANGE ATTENDANT MAY EDUCATE ON PAIN MANAGEMENT CLINICALLY INDICATED, INCLUDING NON-PHARMACOLOGICAL PAIN REDUCTION TECHNIQUES PT / GOLF RANGE ATTENDANT TO MONITOR FOR HYPO/HYPERGLYCEMIA AND CONDUCT ROUTINE FOOT INSPECTIONS. RECORD PATIENT REPORTED BLOOD SUGAR LEVELS AND NOTIFY PHYSICIAN AND/OR THE RN CLINICAL PACKING HOUSE SUPERVISOR FOR PHYSICIAN NOTIFICATION IF BLOOD SUGAR LEVELS ARE OUTSIDE ORDERED PARAMETERS. TEACH PATIENT/CAREGIVER ON DAILY FOOT INSPECTIONS PT / GOLF RANGE ATTENDANT TO INSTRUCT PATIENT/CAREGIVER ON RISK FOR HOSPITALIZATION/EMERGENCY ROOM VISITS, TEACH SIGNS AND SYMPTOMS THAT PUT PATIENT AT RISK, WHEN TO NOTIFY NURSE/PHYSICIAN OF COMPLICATIONS/DECLINE, AND WHEN TO CALL 911. PT/GOLF RANGE ATTENDANT TO EDUCATE ON ARTHRITIS SELF-MANAGEMENT PT / GOLF RANGE ATTENDANT TO EDUCATE ON HEART FAILURE SELF-MANAGEMENT PT / GOLF RANGE ATTENDANT TO EDUCATE ON HYPERTENSION SELF-MANAGEMENT PT TO ASSESS / GOLF RANGE ATTENDANT TO MONITOR CARDIO/RESPIRATORY SYSTEM; AND NOTIFY THE PHYSICIAN AND/OR THE RN CLINICAL PACKING HOUSE SUPERVISOR FOR PHYSICIAN NOTIFICATION FOR EARLY SIGNS AND SYMPTOMS OF EXACERBATION OR DETERIORATION. PT / GOLF RANGE ATTENDANT TO EDUCATE ON ATRIAL FIBRILLATION SELF-MANAGEMENT. PT / GOLF RANGE ATTENDANT TO EDUCATE ON PNEUMONIA / ASPIRATION PNEUMONIA SELF-MANAGEMENT. PT/GOLF RANGE ATTENDANT TO IDENTIFY FALL RISK FACTORS; EDUCATE THE PATIENT/CAREGIVER ON WAYS TO REDUCE FALL RISK FACTORS AND ESTABLISH HOME EXERCISE PROGRAM TO MINIMIZE FALL RISK. MAY TEACH THE PATIENT FLOOR RECOVERY WHEN CLINICALLY APPROPRIATE [code = PT TO EVALUATE, OBSERVE / ASSESS, AND MONITOR, GOLF RANGE ATTENDANT TO OBSERVE AND MONITOR, PROVIDE SKILLED THERAPEUTIC INTERVENTION, ACTIVITY, EDUCATION, AND TRAINING TO ADDRESS GEN. WEAKNESS, POOR OVERALL ACTIVITY TOLERANCE, AND FUNCTIONAL LIMITATIONS IMPACTING SAFETY AND INDEPENDENCE. BED MOBILITY (PT/GOLF RANGE ATTENDANT) PT/GOLF RANGE ATTENDANT TO PROVIDE GAIT TRAINING FOR IMPROVED MOBILITY AND /OR TO NORMALIZE GAIT PATTERN THERAPEUTIC EXERCISES AND ESTABLISHING A HOME EXERCISE PROGRAM (PT/GOLF RANGE ATTENDANT) PT/GOLF RANGE ATTENDANT TO PROVIDE STAIR TRAINING PT / GOLF RANGE ATTENDANT TO MONITOR AND EDUCATE ON OXYGEN SATURATION DURING ADLS/IADLS, NOTIFY PHYSICIAN AND/OR THE RN CLINICAL PACKING HOUSE SUPERVISOR FOR PHYSICIAN NOTIFICATION AND IF O2 SATS BELOW PHYSICIAN ORDERED PARAMETERS AFTER 10 MIN OF REST PT / GOLF RANGE ATTENDANT TO OBSERVE FOR EARLY SIGNS AND SYMPTOMS OF DEPRESSION OR DEPRESSION GETTING WORSE AND TO EDUCATE ON HOW TO FIND HELP. PT / GOLF RANGE ATTENDANT MAY EDUCATE ON PAIN MANAGEMENT CLINICALLY INDICATED, INCLUDING NON-PHARMACOLOGICAL PAIN REDUCTION TECHNIQUES PT / GOLF RANGE ATTENDANT TO MONITOR FOR HYPO/HYPERGLYCEMIA AND CONDUCT ROUTINE FOOT INSPECTIONS. RECORD PATIENT REPORTED BLOOD SUGAR LEVELS AND NOTIFY PHYSICIAN AND/OR THE RN CLINICAL PACKING HOUSE SUPERVISOR FOR PHYSICIAN NOTIFICATION IF BLOOD SUGAR LEVELS ARE OUTSIDE ORDERED PARAMETERS. TEACH PATIENT/CAREGIVER ON DAILY FOOT INSPECTIONS PT / GOLF RANGE ATTENDANT TO INSTRUCT PATIENT/CAREGIVER ON RISK FOR HOSPITALIZATION/EMERGENCY ROOM VISITS, TEACH SIGNS AND SYMPTOMS THAT PUT PATIENT AT RISK, WHEN TO NOTIFY NURSE/PHYSICIAN OF COMPLICATIONS/DECLINE, AND WHEN TO CALL 911. PT/GOLF RANGE ATTENDANT TO EDUCATE ON ARTHRITIS SELF-MANAGEMENT PT / GOLF RANGE ATTENDANT TO EDUCATE ON HEART FAILURE SELF-MANAGEMENT PT / GOLF RANGE ATTENDANT TO EDUCATE ON HYPERTENSION SELF-MANAGEMENT PT TO ASSESS / GOLF RANGE ATTENDANT TO MONITOR CARDIO/RESPIRATORY SYSTEM; AND NOTIFY THE PHYSICIAN AND/OR THE RN CLINICAL PACKING HOUSE SUPERVISOR FOR PHYSICIAN NOTIFICATION FOR EARLY SIGNS AND SYMPTOMS OF EXACERBATION OR DETERIORATION. PT / GOLF RANGE ATTENDANT TO EDUCATE ON ATRIAL FIBRILLATION SELF-MANAGEMENT. PT / GOLF RANGE ATTENDANT TO EDUCATE ON PNEUMONIA / ASPIRATION PNEUMONIA SELF-MANAGEMENT. PT/GOLF RANGE ATTENDANT TO IDENTIFY FALL RISK FACTORS; EDUCATE THE PATIENT/CAREGIVER ON WAYS TO REDUCE FALL RISK FACTORS AND ESTABLISH HOME EXERCISE PROGRAM TO MINIMIZE FALL RISK. MAY TEACH THE PATIENT FLOOR RECOVERY WHEN CLINICALLY APPROPRIATE] Future Scheduled Test AGENCY MAY PERFORM A RESUMPTION OF CARE VISIT FOLLOWING ANY HOSPITAL ADMISSION. OT TO EVALUATE, OBSERVE / ASSESS, AND MONITOR, ROTATIONAL MOULDING OPERATOR TO OBSERVE AND MONITOR, PROVIDE SKILLED THERAPEUTIC INTERVENTION, ACTIVITY, EDUCATION, AND TRAINING TO ADDRESS SAFETY AND INDEPENDENCE OF ADLS AND FUNCTIONAL TRANSFERS IN HOME ENVIRONMENT. ACTIVITIES OF DAILY LIVING (OT/MARIANNE) THERAPEUTIC EXERCISE (OT/ROTATIONAL MOULDING OPERATOR) ENERGY CONSERVATION/ACTIVITY DEMAND (OT/ROTATIONAL MOULDING OPERATOR) OT/ROTATIONAL MOULDING OPERATOR TO MONITOR AND EDUCATE ON OXYGEN SATURATION DURING ADLS/IADLS, NOTIFY PHYSICIAN AND/OR THE RN CLINICAL PACKING HOUSE SUPERVISOR FOR PHYSICIAN NOTIFICATION AND IF O2 SATS BELOW 90% AFTER 10 MIN OF REST. OT / ROTATIONAL MOULDING OPERATOR TO IDENTIFY FALL RISK FACTORS; EDUCATE THE PATIENT/CAREGIVER ON WAYS TO REDUCE FALL RISK FACTORS AND ESTABLISH HOME EXERCISE PROGRAM TO MINIMIZE FALL RISK. MAY TEACH THE PATIENT FLOOR RECOVERY WHEN CLINICALLY APPROPRIATE. OT/ROTATIONAL MOULDING OPERATOR TO EDUCATE ON HYPERTENSION SELF-MANAGEMENT OT/MARIANNE TO EDUCATE ON ATRIAL FIBRILLATION SELF-MANAGEMENT. [code = AGENCY MAY PERFORM A RESUMPTION OF CARE VISIT FOLLOWING ANY HOSPITAL ADMISSION. OT TO EVALUATE, OBSERVE / ASSESS, AND MONITOR, ROTATIONAL MOULDING OPERATOR TO OBSERVE AND MONITOR, PROVIDE SKILLED THERAPEUTIC INTERVENTION, ACTIVITY, EDUCATION, AND TRAINING TO ADDRESS SAFETY AND INDEPENDENCE OF ADLS AND FUNCTIONAL TRANSFERS IN HOME ENVIRONMENT. ACTIVITIES OF DAILY LIVING (OT/MARIANNE) THERAPEUTIC EXERCISE (OT/ROTATIONAL MOULDING OPERATOR) ENERGY CONSERVATION/ACTIVITY DEMAND (OT/MARIANNE) OT/ROTATIONAL MOULDING OPERATOR TO MONITOR AND EDUCATE ON OXYGEN SATURATION DURING ADLS/IADLS, NOTIFY PHYSICIAN AND/OR THE RN CLINICAL PACKING HOUSE SUPERVISOR FOR PHYSICIAN NOTIFICATION AND IF O2 SATS BELOW 90% AFTER 10 MIN OF REST. OT / MARIANNE TO IDENTIFY FALL RISK FACTORS; EDUCATE THE PATIENT/CAREGIVER ON WAYS TO REDUCE FALL RISK FACTORS AND ESTABLISH HOME EXERCISE PROGRAM TO MINIMIZE FALL RISK. MAY TEACH THE PATIENT FLOOR RECOVERY WHEN CLINICALLY APPROPRIATE. OT/ROTATIONAL MOULDING OPERATOR TO EDUCATE ON HYPERTENSION SELF-MANAGEMENT OT/MARIANNE [...] OF SKIN INTEGRITY ISSUES FROM SBA TO IN WITHIN 2 WKS. PT STG: PATIENT WILL [...] TO SAFELY NEGOTIATE STAIRS FROM SBA TO IN WITH 2 STEPS W/O HANDRAIL VIA FRONT [...] End Date/Time Encounter Type Admission Type [facility]ending [facility] Care Department Encounter ID Discharge Date Discharge Status Discharge Condition Discharge Reason Percent Goals Met 2025-02-07 00:00:00 2025-04-07 00:00:00 Outpatient NEW ADMISSION [facility] [id number] 26.42
--- OUTSIDE RECORDS SUMMARY | 2025-04-06 18:00 | XMS_ITS | Clinical Summary ---
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) USE OF SYSTEMIC STEROIDS Active 02-07 [...] 80 mg tablet 02-07 00:00: 00 Yes [id number] CHOLESTEROL 1 tablet DAILY 1 tablet DAILY (route: oral) Med Classific ation: Cardiovas cular Therapy Agents digoxin 125 mcg (0.125 mg) tablet 02-07 00:00: 00 02-21 23:59 :00 No [id number] HEART RHYTHM 1 tablet DAILY 1 tablet DAILY (route: oral) Med Classific ation: Cardiovas cular Therapy Agents escitalopra m 10 mg tablet 02-07 00:00: 00 Yes [id number] MOOD 1 tablet DAILY 1 tablet DAILY (route: oral) Med Classific ation: Central Nervous System Agents ezetimibe 10 mg tablet 02-07 00:00: 00 Yes [id number] CHOLESTEROL 1 tablet DAILY 1 tablet DAILY (route: oral) Med Classific ation: Cardiovas cular Therapy Agents metoprolol succinate ER 25 mg tablet,exte nded release 24 hr 02-07 00:00: 00 02-21 23:59 :00 No [id number] BLOOD PRESSURE 0.5 tablet DAILY 0.5 tablet DAILY (route: oral) Med Classific ation: Cardiovas cular Therapy Agents pantoprazol e 40 mg tablet,joão yed release 02-07 00:00: 00 02-21 23:59 :00 No [id number] STOMACH ACID 1 tablet DAILY 1 tablet DAILY (route: oral) Med Classific ation: Gastroint estinal Therapy Agents prednisone 5 mg tablet 02-07 00:00: 00 Yes [id number] ADRENAL INSUFFICIEN CY 1 tablet DAILY 1 tablet DAILY (route: oral) Med Classific ation: Endocrine spironolact one 25 mg tablet 02-07 00:00: 00 Yes [id number] FLUID RETENTION 0.5 tablet DAILY 0.5 tablet DAILY (route: oral) Med Classific ation: Cardiovas cular Therapy Agents tamsulosin 0.4 mg capsule 02-07 00:00: 00 02-21 23:59 :00 No [id number] URINARY HEALTH 1 capsule DAILY 1 capsule DAILY (route: oral) Med Classific ation: Genitouri nary Therapy acetaminoph en 325 mg tablet 2024-05 00:00: 00 Yes [id number] PAIN 2 tablet 2 TIMES DAILY 2 tablet 2 TIMES DAILY (route: oral) Med Classific ation: Analgesic , Anti-infl ammatory or Antipyret ic aspirin 81 mg tablet 2024-05 00:00: 00 Yes [id number] ANTICOAGULA NT 1 tablet DAILY 1 tablet DAILY (route: oral) Med Classific ation: Hematolog ical Agents ipratropium 0.5 mg-albutero l 3 mg (2.5 mg base)/3 mL nebulizatio n soln 2024-05 00:00: 00 Yes [id number] COPD 3 mL EVERY 6 HOURS 3 mL EVERY 6 HOURS (route: inhalation ) Med Classific ation: Respirato ry Therapy Agents Lanoxin 62.5 mcg (0.0625 mg) tablet 2024-05 00:00: 00 Yes [id number] CHF 1 tablet DAILY 1 tablet DAILY (route: oral) Med Classific ation: Cardiovas cular Therapy Agents Lasix 20 mg tablet 2024-05 00:00: 00 Yes [id number] CHF 1 tablet DAILY 1 tablet DAILY (route: oral) Med Classific ation: Cardiovas cular Therapy Agents Toprol XL 25 mg tablet,exte nded release 2024-05 00:00: 00 Yes [id number] BP 25 mg DAILY 25 mg DAILY [...] SYSTEM MANAGEMENT; RN TO ASSESS AND TEACH, FOOTWEAR SALES REPRESENTATIVE/SENIOR TRAINING AND DEVELOPMENT REP TO OBSERVE AND TEACH RELATED TO ALTERED RESPIRATORY STATUS TO MINIMIZE COMPLICATIONS AND REDUCE HOSPITALIZATION. [code = SN 1WK9 PT 1WK1 OT EFFECTIVE 02/10/2025K1 RESPIRATORY SYSTEM MANAGEMENT; RN TO ASSESS AND TEACH, FOOTWEAR SALES REPRESENTATIVE/SENIOR TRAINING AND DEVELOPMENT REP TO OBSERVE AND TEACH RELATED TO ALTERED RESPIRATORY STATUS TO MINIMIZE COMPLICATIONS AND REDUCE HOSPITALIZATION.] Future Scheduled Test TRACHEOSTO MY CARE MANAGEMENT; RN/FOOTWEAR SALES REPRESENTATIVE/SENIOR TRAINING AND DEVELOPMENT REP TO INSTRUCT PATIENT/CAREGIVER ON CARE AND MANAGEMENT OF TRACHEOSTOMY. RN/ FOOTWEAR SALES REPRESENTATIVE/SENIOR TRAINING AND DEVELOPMENT REP TO PROVIDE SKILLED TEACHING ON TRACH COLLAR SUCTIONING PRN WITH 14 FR SUCTION CATHETER PER PATIENT TRACH CARE WITH INNER CANNULA: REMOVE INNER CANNULA, CLEANSE WITH NORMAL SALINE AND OR STERILE WATER AND REINSERT NON-DISPOSABLE CANNULA SIZE OF INNER CANNULA 5 BROOKS [code = TRACHEOSTOMY CARE MANAGEMENT; RN/FOOTWEAR SALES REPRESENTATIVE/SENIOR TRAINING AND DEVELOPMENT REP TO INSTRUCT PATIENT/CAREGIVER ON CARE AND MANAGEMENT OF TRACHEOSTOMY. RN/ FOOTWEAR SALES REPRESENTATIVE/SENIOR TRAINING AND DEVELOPMENT REP TO PROVIDE SKILLED TEACHING ON TRACH COLLAR SUCTIONING PRN WITH 14 FR SUCTION CATHETER PER PATIENT TRACH CARE WITH INNER CANNULA: REMOVE INNER CANNULA, CLEANSE WITH NORMAL SALINE AND OR STERILE WATER AND REINSERT NON-DISPOSABLE CANNULA SIZE OF INNER CANNULA 5 BROOKS] Future Scheduled Test FALL REDUC TION MANAGEMENT; RN TO ASSESS AND OBSERVE, FOOTWEAR SALES REPRESENTATIVE/SENIOR TRAINING AND DEVELOPMENT REP TO OBSERVE FALL RISK FACTORS AND EDUCATE PATIENT/CAREGIVER ON STRATEGIES TO MINIMIZE THE RISK OF FALLING. [code = FALL REDUCTION MANAGEMENT; RN TO ASSESS AND OBSERVE, FOOTWEAR SALES REPRESENTATIVE/SENIOR TRAINING AND DEVELOPMENT REP TO OBSERVE FALL RISK FACTORS AND EDUCATE PATIENT/CAREGIVER ON STRATEGIES TO MINIMIZE THE RISK OF FALLING.] Future Scheduled Test ANEMIA MAN AGEMENT; RN TO ASSESS AND TEACH, SENIOR TRAINING AND DEVELOPMENT REP/FOOTWEAR SALES REPRESENTATIVE TO OBSERVE AND TEACH AND PROVIDE EDUCATION ON ANEMIA. [code = ANEMIA MANAGEMENT; RN TO ASSESS AND TEACH, SENIOR TRAINING AND DEVELOPMENT REP/FOOTWEAR SALES REPRESENTATIVE TO OBSERVE AND TEACH AND PROVIDE EDUCATION ON ANEMIA.] Future Scheduled Test RN TO OBSE RVE, ASSESS, EVALUATE, AND DEVELOP AN INDIVIDUALIZED PLAN OF CARE. AGENCY MAY ACCEPT ORDERS FROM CONSULTING PHYSICIANS RN TO OBSERVE AND ASSESS, FOOTWEAR SALES REPRESENTATIVE/SENIOR TRAINING AND DEVELOPMENT REP TO OBSERVE FOR RISK FOR FALLS AND INSTRUCT IN FALL PREVENTION, HOME SAFETY, MEDICATION MANAGEMENT, INFECTION PREVENTION, AND NUTRITION MANAGEMENT. RN/FOOTWEAR SALES REPRESENTATIVE/SENIOR TRAINING AND DEVELOPMENT REP NURSE MAY PERFORM O2 SATURATION LEVEL ON ADMISSION AND PRN FOR RN TO ASSESS/FOOTWEAR SALES REPRESENTATIVE TO OBSERVE PATIENT, WITH NOTIFICATION TO THE PHYSICIAN IF SATURATION IS 90% IN THE ABSENCE OF MORE SPECIFIC PARAMETERS FROM THE PHYSICIAN. AGENCY MAY PERFORM A RESUMPTION OF CARE VISIT FOLLOWING ANY HOSPITAL ADMISSION. RN/FOOTWEAR SALES REPRESENTATIVE/SENIOR TRAINING AND DEVELOPMENT REP TO MONITOR CO-MORBID CONDITIONS LISTED ON THE PLAN OF CARE AND ANY NEW CONDITIONS THAT PRESENT THEMSELVES DURING THIS EPISODE TO IDENTIFY CHANGES AND INTERVENE TO MINIMIZE COMPLICATIONS. [code = RN TO OBSERVE, ASSESS, EVALUATE, AND DEVELOP AN INDIVIDUALIZED PLAN OF CARE. AGENCY MAY ACCEPT ORDERS FROM CONSULTING PHYSICIANS RN TO OBSERVE AND ASSESS, FOOTWEAR SALES REPRESENTATIVE/SENIOR TRAINING AND DEVELOPMENT REP TO OBSERVE FOR RISK FOR FALLS AND INSTRUCT IN FALL PREVENTION, HOME SAFETY, MEDICATION MANAGEMENT, INFECTION PREVENTION, AND NUTRITION MANAGEMENT. RN/FOOTWEAR SALES REPRESENTATIVE/SENIOR TRAINING AND DEVELOPMENT REP NURSE MAY PERFORM O2 SATURATION LEVEL ON ADMISSION AND PRN FOR RN TO ASSESS/FOOTWEAR SALES REPRESENTATIVE TO OBSERVE PATIENT, WITH NOTIFICATION TO THE PHYSICIAN IF SATURATION IS 90% IN THE ABSENCE OF MORE SPECIFIC PARAMETERS FROM THE PHYSICIAN. AGENCY MAY PERFORM A RESUMPTION OF CARE VISIT FOLLOWING ANY HOSPITAL ADMISSION. RN/FOOTWEAR SALES REPRESENTATIVE/SENIOR TRAINING AND DEVELOPMENT REP TO MONITOR CO-MORBID CONDITIONS LISTED ON THE PLAN OF CARE AND ANY NEW CONDITIONS THAT PRESENT THEMSELVES DURING THIS EPISODE TO IDENTIFY CHANGES AND INTERVENE TO MINIMIZE COMPLICATIONS.] Future Scheduled Test PAIN MANAG EMENT; RN TO ASSESS AND TEACH, SENIOR TRAINING AND DEVELOPMENT REP/FOOTWEAR SALES REPRESENTATIVE TO OBSERVE AND TEACH AND PROVIDE EDUCATION ON PAIN MANAGEMENT TECHNIQUES. [code = PAIN MANAGEMENT; RN TO ASSESS AND TEACH, SENIOR TRAINING AND DEVELOPMENT REP/FOOTWEAR SALES REPRESENTATIVE TO OBSERVE AND TEACH AND PROVIDE EDUCATION ON PAIN MANAGEMENT TECHNIQUES.] Future Scheduled Test RISK FOR H OSPITALIZATION; RN TO ASSESS/TEACH, SENIOR TRAINING AND DEVELOPMENT REP/FOOTWEAR SALES REPRESENTATIVE TO OBSERVE/TEACH PATIENT/CAREGIVER ON RISK FOR HOSPITALIZATION/EMERGENCY ROOM VISITS, TEACH SIGNS AND SYMPTOMS THAT PUT PATIENT AT RISK, WHEN TO NOTIFY NURSE/PHYSICIAN OF COMPLICATIONS/DECLINE, AND WHEN TO CALL 911. [code = RISK FOR HOSPITALIZATION; RN TO ASSESS/TEACH, SENIOR TRAINING AND DEVELOPMENT REP/FOOTWEAR SALES REPRESENTATIVE TO OBSERVE/TEACH PATIENT/CAREGIVER ON RISK FOR HOSPITALIZATION/EMERGENCY ROOM VISITS, TEACH SIGNS AND SYMPTOMS THAT PUT PATIENT AT RISK, WHEN TO NOTIFY NURSE/PHYSICIAN OF COMPLICATIONS/DECLINE, AND WHEN TO CALL 911.] Future Scheduled Test CARDIOVASC ULAR SYSTEM; RN TO ASSESS/TEACH, FOOTWEAR SALES REPRESENTATIVE/SENIOR TRAINING AND DEVELOPMENT REP TO OBSERVE/TEACH RELATED TO ALTERED CARDIOVASCULAR STATUS TO MINIMIZE COMPLICATIONS AND REDUCE HOSPITALIZATION. [code = CARDIOVASCULAR SYSTEM; RN TO ASSESS/TEACH, FOOTWEAR SALES REPRESENTATIVE/SENIOR TRAINING AND DEVELOPMENT REP TO OBSERVE/TEACH RELATED TO ALTERED CARDIOVASCULAR STATUS TO MINIMIZE COMPLICATIONS AND REDUCE HOSPITALIZATION.] Future Scheduled Test HYPERTENSI ON MANAGEMENT; RN TO ASSESS AND TEACH, FOOTWEAR SALES REPRESENTATIVE/SENIOR TRAINING AND DEVELOPMENT REP TO OBSERVE AND TEACH WARNING SIGNS AND SYMPTOMS TO AVOID HOSPITALIZATION. [code = HYPERTENSION MANAGEMENT; RN TO ASSESS AND TEACH, FOOTWEAR SALES REPRESENTATIVE/SENIOR TRAINING AND DEVELOPMENT REP TO OBSERVE AND TEACH WARNING SIGNS AND SYMPTOMS TO AVOID HOSPITALIZATION.] Future Scheduled Test HEART FAIL URE MONITORING RN/SENIOR TRAINING AND DEVELOPMENT REP/FOOTWEAR SALES REPRESENTATIVE TO MONITOR PATIENT FOR SIGNS AND SYMPTOMS OF HEART FAILURE EXACERBATION, MONITOR FOR ADHERENCE WITH MEDICATION AND HEART FAILURE MANAGEMENT REGIMEN. [code = HEART FAILURE MONITORING RN/SENIOR TRAINING AND DEVELOPMENT REP/FOOTWEAR SALES REPRESENTATIVE TO MONITOR PATIENT FOR SIGNS AND SYMPTOMS OF HEART FAILURE EXACERBATION, MONITOR FOR ADHERENCE WITH MEDICATION AND HEART FAILURE MANAGEMENT REGIMEN.] Future Scheduled Test DIABETES M ONITORING RN/SENIOR TRAINING AND DEVELOPMENT REP/FOOTWEAR SALES REPRESENTATIVE TO MONITOR BLOOD SUGAR LOG FOR BLOOD SUGAR READINGS THAT ARE BEING CHECKED BY PATIENT, CAREGIVER NEEDED FOR SIGNS AND SYMPTOMS OF HYPER/HYPOGLYCEMIA. PATIENT THERAPEUTIC BLOOD SUGAR PARAMETERS ARE 70 - 300. REPORT BLOOD SUGARS OUT OF RANGE TO PHYSICIAN. NURSE MAY PERFORM FINGER STICK BLOOD GLUCOSE NEEDED FOR SIGNS AND SYMPTOMS OF HYPO AND HYPERGLYCEMIA. RN/SENIOR TRAINING AND DEVELOPMENT REP/FOOTWEAR SALES REPRESENTATIVE TO MONITOR ADHERENCE OF PATIENT/CAREGIVER PERFORMING DIABETIC FOOT CARE AND MAY PERFORM DIABETIC FOOT CARE PRN. RN/SENIOR TRAINING AND DEVELOPMENT REP/FOOTWEAR SALES REPRESENTATIVE TO MONITOR FOR ADHERENCE TO DIABETIC SELF-CARE AND MANAGEMENT INCLUDING MEDICATIONS. [code = DIABETES MONITORING RN/SENIOR TRAINING AND DEVELOPMENT REP/FOOTWEAR SALES REPRESENTATIVE TO MONITOR BLOOD SUGAR LOG FOR BLOOD SUGAR READINGS THAT ARE BEING CHECKED BY PATIENT, CAREGIVER NEEDED FOR SIGNS AND SYMPTOMS OF HYPER/HYPOGLYCEMIA. PATIENT THERAPEUTIC BLOOD SUGAR PARAMETERS ARE 70 - 300. REPORT BLOOD SUGARS OUT OF RANGE TO PHYSICIAN. NURSE MAY PERFORM FINGER STICK BLOOD GLUCOSE NEEDED FOR SIGNS AND SYMPTOMS OF HYPO AND HYPERGLYCEMIA. RN/SENIOR TRAINING AND DEVELOPMENT REP/FOOTWEAR SALES REPRESENTATIVE TO MONITOR ADHERENCE OF PATIENT/CAREGIVER PERFORMING DIABETIC FOOT CARE AND MAY PERFORM DIABETIC FOOT CARE PRN. RN/SENIOR TRAINING AND DEVELOPMENT REP/FOOTWEAR SALES REPRESENTATIVE TO MONITOR FOR ADHERENCE TO DIABETIC SELF-CARE AND MANAGEMENT INCLUDING MEDICATIONS.] Future Scheduled Test HYPOTENSIO N MANAGEMENT; RN TO ASSESS AND TEACH/ FOOTWEAR SALES REPRESENTATIVE /SENIOR TRAINING AND DEVELOPMENT REP TO OBSERVE AND TEACH WARNING SIGNS AND SYMPTOMS TO AVOID HOSPITALIZATION. [code = HYPOTENSION MANAGEMENT; RN TO ASSESS AND TEACH/ FOOTWEAR SALES REPRESENTATIVE /SENIOR TRAINING AND DEVELOPMENT REP TO OBSERVE AND TEACH WARNING SIGNS AND SYMPTOMS TO AVOID HOSPITALIZATION.] Future Scheduled Test ARRHYTHMIA MANAGEMENT; RN TO ASSESS AND TEACH, FOOTWEAR SALES REPRESENTATIVE/SENIOR TRAINING AND DEVELOPMENT REP TO OBSERVE AND TEACH WARNING SIGNS AND SYMPTOMS TO AVOID HOSPITALIZATION. [code = ARRHYTHMIA MANAGEMENT; RN TO ASSESS AND TEACH, FOOTWEAR SALES REPRESENTATIVE/SENIOR TRAINING AND DEVELOPMENT REP TO OBSERVE AND TEACH WARNING SIGNS AND SYMPTOMS TO AVOID HOSPITALIZATION.] Future Scheduled Test MEDICATION MANAGEMENT; RN/FOOTWEAR SALES REPRESENTATIVE/SENIOR TRAINING AND DEVELOPMENT REP TO REVIEW MEDICATIONS FOR INTERACTIONS, EFFECTIVENESS OF DRUG THERAPY, AND SIGNS/SYMPTOMS OF ADVERSE REACTIONS. MAY INSTRUCT AND REINFORCE MEDICATION TEACHING RELATED TO THE USE OF MEDICATIONS, DOSAGE, FREQUENCY, PURPOSE, SIDE EFFECTS, AND TO REPORT COMPLICATIONS. [code = MEDICATION MANAGEMENT; RN/FOOTWEAR SALES REPRESENTATIVE/SENIOR TRAINING AND DEVELOPMENT REP TO REVIEW MEDICATIONS FOR INTERACTIONS, EFFECTIVENESS OF [...] EVAL UATE, OBSERVE / ASSESS, AND MONITOR, NURSE SANE TO OBSERVE AND MONITOR, PROVIDE SKILLED THERAPEUTIC INTERVENTION, ACTIVITY, EDUCATION, AND TRAINING TO ADDRESS GEN. WEAKNESS, POOR OVERALL ACTIVITY TOLERANCE, AND FUNCTIONAL LIMITATIONS IMPACTING SAFETY AND INDEPENDENCE. BED MOBILITY (PT/NURSE SANE) PT/NURSE SANE TO PROVIDE GAIT TRAINING FOR IMPROVED MOBILITY AND /OR TO NORMALIZE GAIT PATTERN THERAPEUTIC EXERCISES AND ESTABLISHING A HOME EXERCISE PROGRAM (PT/NURSE SANE) PT/NURSE SANE TO PROVIDE STAIR TRAINING PT / NURSE SANE TO MONITOR AND EDUCATE ON OXYGEN SATURATION DURING ADLS/IADLS, NOTIFY PHYSICIAN AND/OR THE RN CLINICAL PRESIDENT SALES AND MARKETING FOR PHYSICIAN NOTIFICATION AND IF O2 SATS BELOW PHYSICIAN ORDERED PARAMETERS AFTER 10 MIN OF REST PT / NURSE SANE TO OBSERVE FOR EARLY SIGNS AND SYMPTOMS OF DEPRESSION OR DEPRESSION GETTING WORSE AND TO EDUCATE ON HOW TO FIND HELP. PT / NURSE SANE MAY EDUCATE ON PAIN MANAGEMENT CLINICALLY INDICATED, INCLUDING NON-PHARMACOLOGICAL PAIN REDUCTION TECHNIQUES PT / NURSE SANE TO MONITOR FOR HYPO/HYPERGLYCEMIA AND CONDUCT ROUTINE FOOT INSPECTIONS. RECORD PATIENT REPORTED BLOOD SUGAR LEVELS AND NOTIFY PHYSICIAN AND/OR THE RN CLINICAL PRESIDENT SALES AND MARKETING FOR PHYSICIAN NOTIFICATION IF BLOOD SUGAR LEVELS ARE OUTSIDE ORDERED PARAMETERS. TEACH PATIENT/CAREGIVER ON DAILY FOOT INSPECTIONS PT / NURSE SANE TO INSTRUCT PATIENT/CAREGIVER ON RISK FOR HOSPITALIZATION/EMERGENCY ROOM VISITS, TEACH SIGNS AND SYMPTOMS THAT PUT PATIENT AT RISK, WHEN TO NOTIFY NURSE/PHYSICIAN OF COMPLICATIONS/DECLINE, AND WHEN TO CALL 911. PT/NURSE SANE TO EDUCATE ON ARTHRITIS SELF-MANAGEMENT PT / NURSE SANE TO EDUCATE ON HEART FAILURE SELF-MANAGEMENT PT / NURSE SANE TO EDUCATE ON HYPERTENSION SELF-MANAGEMENT PT TO ASSESS / NURSE SANE TO MONITOR CARDIO/RESPIRATORY SYSTEM; AND NOTIFY THE PHYSICIAN AND/OR THE RN CLINICAL PRESIDENT SALES AND MARKETING FOR PHYSICIAN NOTIFICATION FOR EARLY SIGNS AND SYMPTOMS OF EXACERBATION OR DETERIORATION. PT / NURSE SANE TO EDUCATE ON ATRIAL FIBRILLATION SELF-MANAGEMENT. PT / NURSE SANE TO EDUCATE ON PNEUMONIA / ASPIRATION PNEUMONIA SELF-MANAGEMENT. PT/NURSE SANE TO IDENTIFY FALL RISK FACTORS; EDUCATE THE PATIENT/CAREGIVER ON WAYS TO REDUCE FALL RISK FACTORS AND ESTABLISH HOME EXERCISE PROGRAM TO MINIMIZE FALL RISK. MAY TEACH THE PATIENT FLOOR RECOVERY WHEN CLINICALLY APPROPRIATE [code = PT TO EVALUATE, OBSERVE / ASSESS, AND MONITOR, NURSE SANE TO OBSERVE AND MONITOR, PROVIDE SKILLED THERAPEUTIC INTERVENTION, ACTIVITY, EDUCATION, AND TRAINING TO ADDRESS GEN. WEAKNESS, POOR OVERALL ACTIVITY TOLERANCE, AND FUNCTIONAL LIMITATIONS IMPACTING SAFETY AND INDEPENDENCE. BED MOBILITY (PT/NURSE SANE) PT/NURSE SANE TO PROVIDE GAIT TRAINING FOR IMPROVED MOBILITY AND /OR TO NORMALIZE GAIT PATTERN THERAPEUTIC EXERCISES AND ESTABLISHING A HOME EXERCISE PROGRAM (PT/NURSE SANE) PT/NURSE SANE TO PROVIDE STAIR TRAINING PT / NURSE SANE TO MONITOR AND EDUCATE ON OXYGEN SATURATION DURING ADLS/IADLS, NOTIFY PHYSICIAN AND/OR THE RN CLINICAL PRESIDENT SALES AND MARKETING FOR PHYSICIAN NOTIFICATION AND IF O2 SATS BELOW PHYSICIAN ORDERED PARAMETERS AFTER 10 MIN OF REST PT / NURSE SANE TO OBSERVE FOR EARLY SIGNS AND SYMPTOMS OF DEPRESSION OR DEPRESSION GETTING WORSE AND TO EDUCATE ON HOW TO FIND HELP. PT / NURSE SANE MAY EDUCATE ON PAIN MANAGEMENT CLINICALLY INDICATED, INCLUDING NON-PHARMACOLOGICAL PAIN REDUCTION TECHNIQUES PT / NURSE SANE TO MONITOR FOR HYPO/HYPERGLYCEMIA AND CONDUCT ROUTINE FOOT INSPECTIONS. RECORD PATIENT REPORTED BLOOD SUGAR LEVELS AND NOTIFY PHYSICIAN AND/OR THE RN CLINICAL PRESIDENT SALES AND MARKETING FOR PHYSICIAN NOTIFICATION IF BLOOD SUGAR LEVELS ARE OUTSIDE ORDERED PARAMETERS. TEACH PATIENT/CAREGIVER ON DAILY FOOT INSPECTIONS PT / NURSE SANE TO INSTRUCT PATIENT/CAREGIVER ON RISK FOR HOSPITALIZATION/EMERGENCY ROOM VISITS, TEACH SIGNS AND SYMPTOMS THAT PUT PATIENT AT RISK, WHEN TO NOTIFY NURSE/PHYSICIAN OF COMPLICATIONS/DECLINE, AND WHEN TO CALL 911. PT/NURSE SANE TO EDUCATE ON ARTHRITIS SELF-MANAGEMENT PT / NURSE SANE TO EDUCATE ON HEART FAILURE SELF-MANAGEMENT PT / NURSE SANE TO EDUCATE ON HYPERTENSION SELF-MANAGEMENT PT TO ASSESS / NURSE SANE TO MONITOR CARDIO/RESPIRATORY SYSTEM; AND NOTIFY THE PHYSICIAN AND/OR THE RN CLINICAL PRESIDENT SALES AND MARKETING FOR PHYSICIAN NOTIFICATION FOR EARLY SIGNS AND SYMPTOMS OF EXACERBATION OR DETERIORATION. PT / NURSE SANE TO EDUCATE ON ATRIAL FIBRILLATION SELF-MANAGEMENT. PT / NURSE SANE TO EDUCATE ON PNEUMONIA / ASPIRATION PNEUMONIA SELF-MANAGEMENT. PT/NURSE SANE TO IDENTIFY FALL RISK FACTORS; EDUCATE THE PATIENT/CAREGIVER ON WAYS TO REDUCE FALL RISK FACTORS AND ESTABLISH HOME EXERCISE PROGRAM TO MINIMIZE FALL RISK. MAY TEACH THE PATIENT FLOOR RECOVERY WHEN CLINICALLY APPROPRIATE] Future Scheduled Test AGENCY MAY PERFORM A RESUMPTION OF CARE VISIT FOLLOWING ANY HOSPITAL ADMISSION. OT TO EVALUATE, OBSERVE / ASSESS, AND MONITOR, GREEN BUILDING MATERIALS DESIGNER TO OBSERVE AND MONITOR, PROVIDE SKILLED THERAPEUTIC INTERVENTION, ACTIVITY, EDUCATION, AND TRAINING TO ADDRESS SAFETY AND INDEPENDENCE OF ADLS AND FUNCTIONAL TRANSFERS IN HOME ENVIRONMENT. ACTIVITIES OF DAILY LIVING (OT/MARIANNE) THERAPEUTIC EXERCISE (OT/GREEN BUILDING MATERIALS DESIGNER) ENERGY CONSERVATION/ACTIVITY DEMAND (OT/GREEN BUILDING MATERIALS DESIGNER) OT/GREEN BUILDING MATERIALS DESIGNER TO MONITOR AND EDUCATE ON OXYGEN SATURATION DURING ADLS/IADLS, NOTIFY PHYSICIAN AND/OR THE RN CLINICAL PRESIDENT SALES AND MARKETING FOR PHYSICIAN NOTIFICATION AND IF O2 SATS BELOW 90% AFTER 10 MIN OF REST. OT / GREEN BUILDING MATERIALS DESIGNER TO IDENTIFY FALL RISK FACTORS; EDUCATE THE PATIENT/CAREGIVER ON WAYS TO REDUCE FALL RISK FACTORS AND ESTABLISH HOME EXERCISE PROGRAM TO MINIMIZE FALL RISK. MAY TEACH THE PATIENT FLOOR RECOVERY WHEN CLINICALLY APPROPRIATE. OT/GREEN BUILDING MATERIALS DESIGNER TO EDUCATE ON HYPERTENSION SELF-MANAGEMENT OT/MARIANNE TO EDUCATE ON ATRIAL FIBRILLATION SELF-MANAGEMENT. [code = AGENCY MAY PERFORM A RESUMPTION OF CARE VISIT FOLLOWING ANY HOSPITAL ADMISSION. OT TO EVALUATE, OBSERVE / ASSESS, AND MONITOR, GREEN BUILDING MATERIALS DESIGNER TO OBSERVE AND MONITOR, PROVIDE SKILLED THERAPEUTIC INTERVENTION, ACTIVITY, EDUCATION, AND TRAINING TO ADDRESS SAFETY AND INDEPENDENCE OF ADLS AND FUNCTIONAL TRANSFERS IN HOME ENVIRONMENT. ACTIVITIES OF DAILY LIVING (OT/MARIANNE) THERAPEUTIC EXERCISE (OT/GREEN BUILDING MATERIALS DESIGNER) ENERGY CONSERVATION/ACTIVITY DEMAND (OT/MARIANNE) OT/GREEN BUILDING MATERIALS DESIGNER TO MONITOR AND EDUCATE ON OXYGEN SATURATION DURING ADLS/IADLS, NOTIFY PHYSICIAN AND/OR THE RN CLINICAL PRESIDENT SALES AND MARKETING FOR PHYSICIAN NOTIFICATION AND IF O2 SATS BELOW 90% AFTER 10 MIN OF REST. OT / MARIANNE TO IDENTIFY FALL RISK FACTORS; EDUCATE THE PATIENT/CAREGIVER ON WAYS TO REDUCE FALL RISK FACTORS AND ESTABLISH HOME EXERCISE PROGRAM TO MINIMIZE FALL RISK. MAY TEACH THE PATIENT FLOOR RECOVERY WHEN CLINICALLY APPROPRIATE. OT/GREEN BUILDING MATERIALS DESIGNER TO EDUCATE ON HYPERTENSION SELF-MANAGEMENT OT/MARIANNE TO [...] Date/Time Encounter Type Admission Type [facility] Department Encounter ID Discharge Date Discharge Status Discharge Condition Discharge Reason Percent Goals Met 2025-02-07 00:00:00 2025-04-07 00:00:00 Outpatient NEW ADMISSION [facility] [id number]
--- OUTSIDE RECORDS SUMMARY | 2025-04-06 18:00 | XMS_ITS | Clinical Summary ---
Author Organization Unknown Care Team Providers Care Bilingual Interpreter Name Role Phone DIGNA ARIEL, ESTRELLA Unavailable Unava dinora STOKES RN, FRANKIE Unavailable Unavailabl e KARI PT, DIDI Unavailable Unavailable NAT WIRE BRUSH MAKER, GAUDENCIO Unavailable Unavailabl e RADHA OT, ROLANDO Unavailable Unavailable JOANNE STEVEN, HATTIE Unavailable Unavailable Payers Payer Name Policy Type Policy Number Effective Date Expira tion Date MEDICARE.[facility] [id number] Problems Condition Name Condition Details Condition Category Status Onset Date Resolution Date Last Treatment Date Treating Clinician Comments 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 02-07 [...] OF PNEUMONIA (RECURRENT) Active 02-07 00:00: 00 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 OF 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 STEROIDS Active 02-07 [...] 80 mg tablet 02-07 00:00: 00 Yes [id number] CHOLESTEROL 1 tablet DAILY 1 tablet DAILY (route: oral) Med Classific ation: Cardiovas cular Therapy Agents digoxin 125 mcg (0.125 mg) tablet 02-07 00:00: 00 02-21 23:59 :00 No [id number] HEART RHYTHM 1 tablet DAILY 1 tablet DAILY (route: oral) Med Classific ation: Cardiovas cular Therapy Agents escitalopra m 10 mg tablet 02-07 00:00: 00 Yes [id number] MOOD 1 tablet DAILY 1 tablet DAILY (route: oral) Med Classific ation: Central Nervous System Agents ezetimibe 10 mg tablet 02-07 00:00: 00 Yes [id number] CHOLESTEROL 1 tablet DAILY 1 tablet DAILY (route: oral) Med Classific ation: Cardiovas cular Therapy Agents metoprolol succinate ER 25 mg tablet,exte nded release 24 hr 02-07 00:00: 00 02-21 23:59 :00 No [id number] BLOOD PRESSURE 0.5 tablet DAILY 0.5 tablet DAILY (route: oral) Med Classific ation: Cardiovas cular Therapy Agents pantoprazol e 40 mg tablet,joão yed release 02-07 00:00: 00 02-21 23:59 :00 No [id number] STOMACH ACID 1 tablet DAILY 1 tablet DAILY (route: oral) Med Classific ation: Gastroint estinal Therapy Agents prednisone 5 mg tablet 02-07 00:00: 00 Yes [id number] ADRENAL INSUFFICIEN CY 1 tablet DAILY 1 tablet DAILY (route: oral) Med Classific ation: Endocrine spironolact one 25 mg tablet 02-07 00:00: 00 Yes [id number] FLUID RETENTION 0.5 tablet DAILY 0.5 tablet DAILY (route: oral) Med Classific ation: Cardiovas cular Therapy Agents tamsulosin 0.4 mg capsule 02-07 00:00: 00 02-21 23:59 :00 No [id number] URINARY HEALTH 1 capsule DAILY 1 capsule DAILY (route: oral) Med Classific ation: Genitouri nary Therapy acetaminoph en 325 mg tablet 2024-05 00:00: 00 Yes [id number] PAIN 2 tablet 2 TIMES DAILY 2 tablet 2 TIMES DAILY (route: oral) Med Classific ation: Analgesic , Anti-infl ammatory or Antipyret ic aspirin 81 mg tablet 2024-05 00:00: 00 Yes [id number] ANTICOAGULA NT 1 tablet DAILY 1 tablet DAILY (route: oral) Med Classific ation: Hematolog ical Agents ipratropium 0.5 mg-albutero l 3 mg (2.5 mg base)/3 mL nebulizatio n soln 2024-05 00:00: 00 Yes [id number] COPD 3 mL EVERY 6 HOURS 3 mL EVERY 6 HOURS (route: inhalation ) Med Classific ation: Respirato ry Therapy Agents Lanoxin 62.5 mcg (0.0625 mg) tablet 2024-05 00:00: 00 Yes [id number] CHF 1 tablet DAILY 1 tablet DAILY (route: oral) Med Classific ation: Cardiovas cular Therapy Agents Lasix 20 mg tablet 2024-05 00:00: 00 Yes [id number] CHF 1 tablet DAILY 1 tablet DAILY (route: oral) Med Classific ation: Cardiovas cular Therapy Agents Toprol XL 25 mg tablet,exte nded release 2024-05 00:00: 00 Yes [id number] BP 25 mg DAILY 25 mg DAILY [...] SYSTEM MANAGEMENT; RN TO ASSESS AND TEACH, LANDSCAPE CREW MEMBER/ASSOCIATE PROFESSOR OF LIBRARY SCIENCE TO OBSERVE AND TEACH RELATED TO ALTERED RESPIRATORY STATUS TO MINIMIZE COMPLICATIONS AND REDUCE HOSPITALIZATION. [code = SN 1WK9 PT 1WK1 OT EFFECTIVE 02/10/2025K1 RESPIRATORY SYSTEM MANAGEMENT; RN TO ASSESS AND TEACH, LANDSCAPE CREW MEMBER/ASSOCIATE PROFESSOR OF LIBRARY SCIENCE TO OBSERVE AND TEACH RELATED TO ALTERED RESPIRATORY STATUS TO MINIMIZE COMPLICATIONS AND REDUCE HOSPITALIZATION.] Future Scheduled Test TRACHEOSTO MY CARE MANAGEMENT; RN/LANDSCAPE CREW MEMBER/ASSOCIATE PROFESSOR OF LIBRARY SCIENCE TO INSTRUCT PATIENT/CAREGIVER ON CARE AND MANAGEMENT OF TRACHEOSTOMY. RN/ LANDSCAPE CREW MEMBER/ASSOCIATE PROFESSOR OF LIBRARY SCIENCE TO PROVIDE SKILLED TEACHING ON TRACH COLLAR SUCTIONING PRN WITH 14 FR SUCTION CATHETER PER PATIENT TRACH CARE WITH INNER CANNULA: REMOVE INNER CANNULA, CLEANSE WITH NORMAL SALINE AND OR STERILE WATER AND REINSERT NON-DISPOSABLE CANNULA SIZE OF INNER CANNULA 5 BROOKS [code = TRACHEOSTOMY CARE MANAGEMENT; RN/LANDSCAPE CREW MEMBER/ASSOCIATE PROFESSOR OF LIBRARY SCIENCE TO INSTRUCT PATIENT/CAREGIVER ON CARE AND MANAGEMENT OF TRACHEOSTOMY. RN/ LANDSCAPE CREW MEMBER/ASSOCIATE PROFESSOR OF LIBRARY SCIENCE TO PROVIDE SKILLED TEACHING ON TRACH COLLAR SUCTIONING PRN WITH 14 FR SUCTION CATHETER PER PATIENT TRACH CARE WITH INNER CANNULA: REMOVE INNER CANNULA, CLEANSE WITH NORMAL SALINE AND OR STERILE WATER AND REINSERT NON-DISPOSABLE CANNULA SIZE OF INNER CANNULA 5 BROOKS] Future Scheduled Test FALL REDUC TION MANAGEMENT; RN TO ASSESS AND OBSERVE, LANDSCAPE CREW MEMBER/ASSOCIATE PROFESSOR OF LIBRARY SCIENCE TO OBSERVE FALL RISK FACTORS AND EDUCATE PATIENT/CAREGIVER ON STRATEGIES TO MINIMIZE THE RISK OF FALLING. [code = FALL REDUCTION MANAGEMENT; RN TO ASSESS AND OBSERVE, LANDSCAPE CREW MEMBER/ASSOCIATE PROFESSOR OF LIBRARY SCIENCE TO OBSERVE FALL RISK FACTORS AND EDUCATE PATIENT/CAREGIVER ON STRATEGIES TO MINIMIZE THE RISK OF FALLING.] Future Scheduled Test ANEMIA MAN AGEMENT; RN TO ASSESS AND TEACH, ASSOCIATE PROFESSOR OF LIBRARY SCIENCE/LANDSCAPE CREW MEMBER TO OBSERVE AND TEACH AND PROVIDE EDUCATION ON ANEMIA. [code = ANEMIA MANAGEMENT; RN TO ASSESS AND TEACH, ASSOCIATE PROFESSOR OF LIBRARY SCIENCE/LANDSCAPE CREW MEMBER TO OBSERVE AND TEACH AND PROVIDE EDUCATION ON ANEMIA.] Future Scheduled Test RN TO OBSE RVE, ASSESS, EVALUATE, AND DEVELOP AN INDIVIDUALIZED PLAN OF CARE. AGENCY MAY ACCEPT ORDERS FROM CONSULTING PHYSICIANS RN TO OBSERVE AND ASSESS, LANDSCAPE CREW MEMBER/ASSOCIATE PROFESSOR OF LIBRARY SCIENCE TO OBSERVE FOR RISK FOR FALLS AND INSTRUCT IN FALL PREVENTION, HOME SAFETY, MEDICATION MANAGEMENT, INFECTION PREVENTION, AND NUTRITION MANAGEMENT. RN/LANDSCAPE CREW MEMBER/ASSOCIATE PROFESSOR OF LIBRARY SCIENCE NURSE MAY PERFORM O2 SATURATION LEVEL ON ADMISSION AND PRN FOR RN TO ASSESS/LANDSCAPE CREW MEMBER TO OBSERVE PATIENT, WITH NOTIFICATION TO THE PHYSICIAN IF SATURATION IS 90% IN THE ABSENCE OF MORE SPECIFIC PARAMETERS FROM THE PHYSICIAN. AGENCY MAY PERFORM A RESUMPTION OF CARE VISIT FOLLOWING ANY HOSPITAL ADMISSION. RN/LANDSCAPE CREW MEMBER/ASSOCIATE PROFESSOR OF LIBRARY SCIENCE TO MONITOR CO-MORBID CONDITIONS LISTED ON THE PLAN OF CARE AND ANY NEW CONDITIONS THAT PRESENT THEMSELVES DURING THIS EPISODE TO IDENTIFY CHANGES AND INTERVENE TO MINIMIZE COMPLICATIONS. [code = RN TO OBSERVE, ASSESS, EVALUATE, AND DEVELOP AN INDIVIDUALIZED PLAN OF CARE. AGENCY MAY ACCEPT ORDERS FROM CONSULTING PHYSICIANS RN TO OBSERVE AND ASSESS, LANDSCAPE CREW MEMBER/ASSOCIATE PROFESSOR OF LIBRARY SCIENCE TO OBSERVE FOR RISK FOR FALLS AND INSTRUCT IN FALL PREVENTION, HOME SAFETY, MEDICATION MANAGEMENT, INFECTION PREVENTION, AND NUTRITION MANAGEMENT. RN/LANDSCAPE CREW MEMBER/ASSOCIATE PROFESSOR OF LIBRARY SCIENCE NURSE MAY PERFORM O2 SATURATION LEVEL ON ADMISSION AND PRN FOR RN TO ASSESS/LANDSCAPE CREW MEMBER TO OBSERVE PATIENT, WITH NOTIFICATION TO THE PHYSICIAN IF SATURATION IS 90% IN THE ABSENCE OF MORE SPECIFIC PARAMETERS FROM THE PHYSICIAN. AGENCY MAY PERFORM A RESUMPTION OF CARE VISIT FOLLOWING ANY HOSPITAL ADMISSION. RN/LANDSCAPE CREW MEMBER/ASSOCIATE PROFESSOR OF LIBRARY SCIENCE TO MONITOR CO-MORBID CONDITIONS LISTED ON THE PLAN OF CARE AND ANY NEW CONDITIONS THAT PRESENT THEMSELVES DURING THIS EPISODE TO IDENTIFY CHANGES AND INTERVENE TO MINIMIZE COMPLICATIONS.] Future Scheduled Test PAIN MANAG EMENT; RN TO ASSESS AND TEACH, ASSOCIATE PROFESSOR OF LIBRARY SCIENCE/LANDSCAPE CREW MEMBER TO OBSERVE AND TEACH AND PROVIDE EDUCATION ON PAIN MANAGEMENT TECHNIQUES. [code = PAIN MANAGEMENT; RN TO ASSESS AND TEACH, ASSOCIATE PROFESSOR OF LIBRARY SCIENCE/LANDSCAPE CREW MEMBER TO OBSERVE AND TEACH AND PROVIDE EDUCATION ON PAIN MANAGEMENT TECHNIQUES.] Future Scheduled Test RISK FOR H OSPITALIZATION; RN TO ASSESS/TEACH, ASSOCIATE PROFESSOR OF LIBRARY SCIENCE/LANDSCAPE CREW MEMBER TO OBSERVE/TEACH PATIENT/CAREGIVER ON RISK FOR HOSPITALIZATION/EMERGENCY ROOM VISITS, TEACH SIGNS AND SYMPTOMS THAT PUT PATIENT AT RISK, WHEN TO NOTIFY NURSE/PHYSICIAN OF COMPLICATIONS/DECLINE, AND WHEN TO CALL 911. [code = RISK FOR HOSPITALIZATION; RN TO ASSESS/TEACH, ASSOCIATE PROFESSOR OF LIBRARY SCIENCE/LANDSCAPE CREW MEMBER TO OBSERVE/TEACH PATIENT/CAREGIVER ON RISK FOR HOSPITALIZATION/EMERGENCY ROOM VISITS, TEACH SIGNS AND SYMPTOMS THAT PUT PATIENT AT RISK, WHEN TO NOTIFY NURSE/PHYSICIAN OF COMPLICATIONS/DECLINE, AND WHEN TO CALL 911.] Future Scheduled Test CARDIOVASC ULAR SYSTEM; RN TO ASSESS/TEACH, LANDSCAPE CREW MEMBER/ASSOCIATE PROFESSOR OF LIBRARY SCIENCE TO OBSERVE/TEACH RELATED TO ALTERED CARDIOVASCULAR STATUS TO MINIMIZE COMPLICATIONS AND REDUCE HOSPITALIZATION. [code = CARDIOVASCULAR SYSTEM; RN TO ASSESS/TEACH, LANDSCAPE CREW MEMBER/ASSOCIATE PROFESSOR OF LIBRARY SCIENCE TO OBSERVE/TEACH RELATED TO ALTERED CARDIOVASCULAR STATUS TO MINIMIZE COMPLICATIONS AND REDUCE HOSPITALIZATION.] Future Scheduled Test HYPERTENSI ON MANAGEMENT; RN TO ASSESS AND TEACH, LANDSCAPE CREW MEMBER/ASSOCIATE PROFESSOR OF LIBRARY SCIENCE TO OBSERVE AND TEACH WARNING SIGNS AND SYMPTOMS TO AVOID HOSPITALIZATION. [code = HYPERTENSION MANAGEMENT; RN TO ASSESS AND TEACH, LANDSCAPE CREW MEMBER/ASSOCIATE PROFESSOR OF LIBRARY SCIENCE TO OBSERVE AND TEACH WARNING SIGNS AND SYMPTOMS TO AVOID HOSPITALIZATION.] Future Scheduled Test HEART FAIL URE MONITORING RN/ASSOCIATE PROFESSOR OF LIBRARY SCIENCE/LANDSCAPE CREW MEMBER TO MONITOR PATIENT FOR SIGNS AND SYMPTOMS OF HEART FAILURE EXACERBATION, MONITOR FOR ADHERENCE WITH MEDICATION AND HEART FAILURE MANAGEMENT REGIMEN. [code = HEART FAILURE MONITORING RN/ASSOCIATE PROFESSOR OF LIBRARY SCIENCE/LANDSCAPE CREW MEMBER TO MONITOR PATIENT FOR SIGNS AND SYMPTOMS OF HEART FAILURE EXACERBATION, MONITOR FOR ADHERENCE WITH MEDICATION AND HEART FAILURE MANAGEMENT REGIMEN.] Future Scheduled Test DIABETES M ONITORING RN/ASSOCIATE PROFESSOR OF LIBRARY SCIENCE/LANDSCAPE CREW MEMBER TO MONITOR BLOOD SUGAR LOG FOR BLOOD SUGAR READINGS THAT ARE BEING CHECKED BY PATIENT, CAREGIVER NEEDED FOR SIGNS AND SYMPTOMS OF HYPER/HYPOGLYCEMIA. PATIENT THERAPEUTIC BLOOD SUGAR PARAMETERS ARE 70 - 300. REPORT BLOOD SUGARS OUT OF RANGE TO PHYSICIAN. NURSE MAY PERFORM FINGER STICK BLOOD GLUCOSE NEEDED FOR SIGNS AND SYMPTOMS OF HYPO AND HYPERGLYCEMIA. RN/ASSOCIATE PROFESSOR OF LIBRARY SCIENCE/LANDSCAPE CREW MEMBER TO MONITOR ADHERENCE OF PATIENT/CAREGIVER PERFORMING DIABETIC FOOT CARE AND MAY PERFORM DIABETIC FOOT CARE PRN. RN/ASSOCIATE PROFESSOR OF LIBRARY SCIENCE/LANDSCAPE CREW MEMBER TO MONITOR FOR ADHERENCE TO DIABETIC SELF-CARE AND MANAGEMENT INCLUDING MEDICATIONS. [code = DIABETES MONITORING RN/ASSOCIATE PROFESSOR OF LIBRARY SCIENCE/LANDSCAPE CREW MEMBER TO MONITOR BLOOD SUGAR LOG FOR BLOOD SUGAR READINGS THAT ARE BEING CHECKED BY PATIENT, CAREGIVER NEEDED FOR SIGNS AND SYMPTOMS OF HYPER/HYPOGLYCEMIA. PATIENT THERAPEUTIC BLOOD SUGAR PARAMETERS ARE 70 - 300. REPORT BLOOD SUGARS OUT OF RANGE TO PHYSICIAN. NURSE MAY PERFORM FINGER STICK BLOOD GLUCOSE NEEDED FOR SIGNS AND SYMPTOMS OF HYPO AND HYPERGLYCEMIA. RN/ASSOCIATE PROFESSOR OF LIBRARY SCIENCE/LANDSCAPE CREW MEMBER TO MONITOR ADHERENCE OF PATIENT/CAREGIVER PERFORMING DIABETIC FOOT CARE AND MAY PERFORM DIABETIC FOOT CARE PRN. RN/ASSOCIATE PROFESSOR OF LIBRARY SCIENCE/LANDSCAPE CREW MEMBER TO MONITOR FOR ADHERENCE TO DIABETIC SELF-CARE AND MANAGEMENT INCLUDING MEDICATIONS.] Future Scheduled Test HYPOTENSIO N MANAGEMENT; RN TO ASSESS AND TEACH/ LANDSCAPE CREW MEMBER /ASSOCIATE PROFESSOR OF LIBRARY SCIENCE TO OBSERVE AND TEACH WARNING SIGNS AND SYMPTOMS TO AVOID HOSPITALIZATION. [code = HYPOTENSION MANAGEMENT; RN TO ASSESS AND TEACH/ LANDSCAPE CREW MEMBER /ASSOCIATE PROFESSOR OF LIBRARY SCIENCE TO OBSERVE AND TEACH WARNING SIGNS AND SYMPTOMS TO AVOID HOSPITALIZATION.] Future Scheduled Test ARRHYTHMIA MANAGEMENT; RN TO ASSESS AND TEACH, LANDSCAPE CREW MEMBER/ASSOCIATE PROFESSOR OF LIBRARY SCIENCE TO OBSERVE AND TEACH WARNING SIGNS AND SYMPTOMS TO AVOID HOSPITALIZATION. [code = ARRHYTHMIA MANAGEMENT; RN TO ASSESS AND TEACH, LANDSCAPE CREW MEMBER/ASSOCIATE PROFESSOR OF LIBRARY SCIENCE TO OBSERVE AND TEACH WARNING SIGNS AND SYMPTOMS TO AVOID HOSPITALIZATION.] Future Scheduled Test MEDICATION MANAGEMENT; RN/LANDSCAPE CREW MEMBER/ASSOCIATE PROFESSOR OF LIBRARY SCIENCE TO REVIEW MEDICATIONS FOR INTERACTIONS, EFFECTIVENESS OF DRUG THERAPY, AND SIGNS/SYMPTOMS OF ADVERSE REACTIONS. MAY INSTRUCT AND REINFORCE MEDICATION TEACHING RELATED TO THE USE OF MEDICATIONS, DOSAGE, FREQUENCY, PURPOSE, SIDE EFFECTS, AND TO REPORT COMPLICATIONS. [code = MEDICATION MANAGEMENT; RN/LANDSCAPE CREW MEMBER/ASSOCIATE PROFESSOR OF LIBRARY SCIENCE TO REVIEW MEDICATIONS FOR INTERACTIONS, EFFECTIVENESS OF [...] UATE, OBSERVE / ASSESS, AND MONITOR, WIRE BRUSH MAKER TO OBSERVE AND MONITOR, PROVIDE SKILLED THERAPEUTIC INTERVENTION, ACTIVITY, EDUCATION, AND TRAINING TO ADDRESS GEN. WEAKNESS, POOR OVERALL ACTIVITY TOLERANCE, AND FUNCTIONAL LIMITATIONS IMPACTING SAFETY AND INDEPENDENCE. BED MOBILITY (PT/WIRE BRUSH MAKER) PT/WIRE BRUSH MAKER TO PROVIDE GAIT TRAINING FOR IMPROVED MOBILITY AND /OR TO NORMALIZE GAIT PATTERN THERAPEUTIC EXERCISES AND ESTABLISHING A HOME EXERCISE PROGRAM (PT/WIRE BRUSH MAKER) PT/WIRE BRUSH MAKER TO PROVIDE STAIR TRAINING PT / WIRE BRUSH MAKER TO MONITOR AND EDUCATE ON OXYGEN SATURATION DURING ADLS/IADLS, NOTIFY PHYSICIAN AND/OR THE RN CLINICAL DANCE ENTERTAINER FOR PHYSICIAN NOTIFICATION AND IF O2 SATS BELOW PHYSICIAN ORDERED PARAMETERS AFTER 10 MIN OF REST PT / WIRE BRUSH MAKER TO OBSERVE FOR EARLY SIGNS AND SYMPTOMS OF DEPRESSION OR DEPRESSION GETTING WORSE AND TO EDUCATE ON HOW TO FIND HELP. PT / WIRE BRUSH MAKER MAY EDUCATE ON PAIN MANAGEMENT CLINICALLY INDICATED, INCLUDING NON-PHARMACOLOGICAL PAIN REDUCTION TECHNIQUES PT / WIRE BRUSH MAKER TO MONITOR FOR HYPO/HYPERGLYCEMIA AND CONDUCT ROUTINE FOOT INSPECTIONS. RECORD PATIENT REPORTED BLOOD SUGAR LEVELS AND NOTIFY PHYSICIAN AND/OR THE RN CLINICAL DANCE ENTERTAINER FOR PHYSICIAN NOTIFICATION IF BLOOD SUGAR LEVELS ARE OUTSIDE ORDERED PARAMETERS. TEACH PATIENT/CAREGIVER ON DAILY FOOT INSPECTIONS PT / WIRE BRUSH MAKER TO INSTRUCT PATIENT/CAREGIVER ON RISK FOR HOSPITALIZATION/EMERGENCY ROOM VISITS, TEACH SIGNS AND SYMPTOMS THAT PUT PATIENT AT RISK, WHEN TO NOTIFY NURSE/PHYSICIAN OF COMPLICATIONS/DECLINE, AND WHEN TO CALL 911. PT/WIRE BRUSH MAKER TO EDUCATE ON ARTHRITIS SELF-MANAGEMENT PT / WIRE BRUSH MAKER TO EDUCATE ON HEART FAILURE SELF-MANAGEMENT PT / WIRE BRUSH MAKER TO EDUCATE ON HYPERTENSION SELF-MANAGEMENT PT TO ASSESS / WIRE BRUSH MAKER TO MONITOR CARDIO/RESPIRATORY SYSTEM; AND NOTIFY THE PHYSICIAN AND/OR THE RN CLINICAL DANCE ENTERTAINER FOR PHYSICIAN NOTIFICATION FOR EARLY SIGNS AND SYMPTOMS OF EXACERBATION OR DETERIORATION. PT / WIRE BRUSH MAKER TO EDUCATE ON ATRIAL FIBRILLATION SELF-MANAGEMENT. PT / WIRE BRUSH MAKER TO EDUCATE ON PNEUMONIA / ASPIRATION PNEUMONIA SELF-MANAGEMENT. PT/WIRE BRUSH MAKER TO IDENTIFY FALL RISK FACTORS; EDUCATE THE PATIENT/CAREGIVER ON WAYS TO REDUCE FALL RISK FACTORS AND ESTABLISH HOME EXERCISE PROGRAM TO MINIMIZE FALL RISK. MAY TEACH THE PATIENT FLOOR RECOVERY WHEN CLINICALLY APPROPRIATE [code = PT TO EVALUATE, OBSERVE / ASSESS, AND MONITOR, WIRE BRUSH MAKER TO OBSERVE AND MONITOR, PROVIDE SKILLED THERAPEUTIC INTERVENTION, ACTIVITY, EDUCATION, AND TRAINING TO ADDRESS GEN. WEAKNESS, POOR OVERALL ACTIVITY TOLERANCE, AND FUNCTIONAL LIMITATIONS IMPACTING SAFETY AND INDEPENDENCE. BED MOBILITY (PT/WIRE BRUSH MAKER) PT/WIRE BRUSH MAKER TO PROVIDE GAIT TRAINING FOR IMPROVED MOBILITY AND /OR TO NORMALIZE GAIT PATTERN THERAPEUTIC EXERCISES AND ESTABLISHING A HOME EXERCISE PROGRAM (PT/WIRE BRUSH MAKER) PT/WIRE BRUSH MAKER TO PROVIDE STAIR TRAINING PT / WIRE BRUSH MAKER TO MONITOR AND EDUCATE ON OXYGEN SATURATION DURING ADLS/IADLS, NOTIFY PHYSICIAN AND/OR THE RN CLINICAL DANCE ENTERTAINER FOR PHYSICIAN NOTIFICATION AND IF O2 SATS BELOW PHYSICIAN ORDERED PARAMETERS AFTER 10 MIN OF REST PT / WIRE BRUSH MAKER TO OBSERVE FOR EARLY SIGNS AND SYMPTOMS OF DEPRESSION OR DEPRESSION GETTING WORSE AND TO EDUCATE ON HOW TO FIND HELP. PT / WIRE BRUSH MAKER MAY EDUCATE ON PAIN MANAGEMENT CLINICALLY INDICATED, INCLUDING NON-PHARMACOLOGICAL PAIN REDUCTION TECHNIQUES PT / WIRE BRUSH MAKER TO MONITOR FOR HYPO/HYPERGLYCEMIA AND CONDUCT ROUTINE FOOT INSPECTIONS. RECORD PATIENT REPORTED BLOOD SUGAR LEVELS AND NOTIFY PHYSICIAN AND/OR THE RN CLINICAL DANCE ENTERTAINER FOR PHYSICIAN NOTIFICATION IF BLOOD SUGAR LEVELS ARE OUTSIDE ORDERED PARAMETERS. TEACH PATIENT/CAREGIVER ON DAILY FOOT INSPECTIONS PT / WIRE BRUSH MAKER TO INSTRUCT PATIENT/CAREGIVER ON RISK FOR HOSPITALIZATION/EMERGENCY ROOM VISITS, TEACH SIGNS AND SYMPTOMS THAT PUT PATIENT AT RISK, WHEN TO NOTIFY NURSE/PHYSICIAN OF COMPLICATIONS/DECLINE, AND WHEN TO CALL 911. PT/WIRE BRUSH MAKER TO EDUCATE ON ARTHRITIS SELF-MANAGEMENT PT / WIRE BRUSH MAKER TO EDUCATE ON HEART FAILURE SELF-MANAGEMENT PT / WIRE BRUSH MAKER TO EDUCATE ON HYPERTENSION SELF-MANAGEMENT PT TO ASSESS / WIRE BRUSH MAKER TO MONITOR CARDIO/RESPIRATORY SYSTEM; AND NOTIFY THE PHYSICIAN AND/OR THE RN CLINICAL DANCE ENTERTAINER FOR PHYSICIAN NOTIFICATION FOR EARLY SIGNS AND SYMPTOMS OF EXACERBATION OR DETERIORATION. PT / WIRE BRUSH MAKER TO EDUCATE ON ATRIAL FIBRILLATION SELF-MANAGEMENT. PT / WIRE BRUSH MAKER TO EDUCATE ON PNEUMONIA / ASPIRATION PNEUMONIA SELF-MANAGEMENT. PT/WIRE BRUSH MAKER TO IDENTIFY FALL RISK FACTORS; EDUCATE THE PATIENT/CAREGIVER ON WAYS TO REDUCE FALL RISK FACTORS AND ESTABLISH HOME EXERCISE PROGRAM TO MINIMIZE FALL RISK. MAY TEACH THE PATIENT FLOOR RECOVERY WHEN CLINICALLY APPROPRIATE] Future Scheduled Test AGENCY MAY PERFORM A RESUMPTION OF CARE VISIT FOLLOWING ANY HOSPITAL ADMISSION. OT TO EVALUATE, OBSERVE / ASSESS, AND MONITOR, BIOFUELS TECHNOLOGY MANAGER TO OBSERVE AND MONITOR, PROVIDE SKILLED THERAPEUTIC INTERVENTION, ACTIVITY, EDUCATION, AND TRAINING TO ADDRESS SAFETY AND INDEPENDENCE OF ADLS AND FUNCTIONAL TRANSFERS IN HOME ENVIRONMENT. ACTIVITIES OF DAILY LIVING (OT/MARIANNE) THERAPEUTIC EXERCISE (OT/BIOFUELS TECHNOLOGY MANAGER) ENERGY CONSERVATION/ACTIVITY DEMAND (OT/BIOFUELS TECHNOLOGY MANAGER) OT/BIOFUELS TECHNOLOGY MANAGER TO MONITOR AND EDUCATE ON OXYGEN SATURATION DURING ADLS/IADLS, NOTIFY PHYSICIAN AND/OR THE RN CLINICAL DANCE ENTERTAINER FOR PHYSICIAN NOTIFICATION AND IF O2 SATS BELOW 90% AFTER 10 MIN OF REST. OT / BIOFUELS TECHNOLOGY MANAGER TO IDENTIFY FALL RISK FACTORS; EDUCATE THE PATIENT/CAREGIVER ON WAYS TO REDUCE FALL RISK FACTORS AND ESTABLISH HOME EXERCISE PROGRAM TO MINIMIZE FALL RISK. MAY TEACH THE PATIENT FLOOR RECOVERY WHEN CLINICALLY APPROPRIATE. OT/BIOFUELS TECHNOLOGY MANAGER TO EDUCATE ON HYPERTENSION SELF-MANAGEMENT OT/MARIANNE TO EDUCATE ON ATRIAL FIBRILLATION SELF-MANAGEMENT. [code = AGENCY MAY PERFORM A RESUMPTION OF CARE VISIT FOLLOWING ANY HOSPITAL ADMISSION. OT TO EVALUATE, OBSERVE / ASSESS, AND MONITOR, BIOFUELS TECHNOLOGY MANAGER TO OBSERVE AND MONITOR, PROVIDE SKILLED THERAPEUTIC INTERVENTION, ACTIVITY, EDUCATION, AND TRAINING TO ADDRESS SAFETY AND INDEPENDENCE OF ADLS AND FUNCTIONAL TRANSFERS IN HOME ENVIRONMENT. ACTIVITIES OF DAILY LIVING (OT/MARIANNE) THERAPEUTIC EXERCISE (OT/BIOFUELS TECHNOLOGY MANAGER) ENERGY CONSERVATION/ACTIVITY DEMAND (OT/MARIANNE) OT/BIOFUELS TECHNOLOGY MANAGER TO MONITOR AND EDUCATE ON OXYGEN SATURATION DURING ADLS/IADLS, NOTIFY PHYSICIAN AND/OR THE RN CLINICAL DANCE ENTERTAINER FOR PHYSICIAN NOTIFICATION AND IF O2 SATS BELOW 90% AFTER 10 MIN OF REST. OT / MARIANNE TO IDENTIFY FALL RISK FACTORS; EDUCATE THE PATIENT/CAREGIVER ON WAYS TO REDUCE FALL RISK FACTORS AND ESTABLISH HOME EXERCISE PROGRAM TO MINIMIZE FALL RISK. MAY TEACH THE PATIENT FLOOR RECOVERY WHEN CLINICALLY APPROPRIATE. OT/BIOFUELS TECHNOLOGY MANAGER TO EDUCATE ON HYPERTENSION SELF-MANAGEMENT OT/MARIANNE [...] End Date/Time Encounter Type Admission Type Attending [facility] Care Department Encounter ID Discharge Date Discharge Status Discharge Condition Discharge Reason Percent Goals Met 2025-02-07 00:00:00 2025-04-07 00:00:00 Outpatient NEW ADMISSION [facility] [id number]
--- OUTSIDE RECORDS SUMMARY | 2025-04-06 18:00 | XMS_ITS | Clinical Summary ---
Author Organization Unknown Care Team Providers Care Shrub Planter Name Role Phone DIGNA ARIEL, ESTRELLA Unavailable Unava dinora STOKES RN, FRANKIE Unavailable Unavailabl e KARI PT, DIDI Unavailable Unavailable NAT PADDED PRODUCTS FINISHER, GAUDENCIO Unavailable Unavailabl e RADHA OT, ROLANDO Unavailable Unavailable JOANNE STEVEN, HATTIE Unavailable Unavailable Payers Payer Name Policy Type Policy Number Effective Date Expira tion Date MEDICARE.[facility] [id number] Problems Condition Name Condition Details Condition Category [...] OF PNEUMONIA (RECURRENT) Active 02-07 00:00: 00 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 AND CONTROL ANALYST (CURRENT) USE OF SYSTEMIC STEROIDS Active [...] 80 mg tablet 02-07 00:00: 00 Yes [id number] CHOLESTEROL 1 tablet DAILY 1 tablet DAILY (route: oral) Med Classific ation: Cardiovas cular Therapy Agents digoxin 125 mcg (0.125 mg) tablet 02-07 00:00: 00 02-21 23:59 :00 No [id number] HEART RHYTHM 1 tablet DAILY 1 tablet DAILY (route: oral) Med Classific ation: Cardiovas cular Therapy Agents escitalopra m 10 mg tablet 02-07 00:00: 00 Yes [id number] MOOD 1 tablet DAILY 1 tablet DAILY (route: oral) Med Classific ation: Central Nervous System Agents ezetimibe 10 mg tablet 02-07 00:00: 00 Yes [id number] CHOLESTEROL 1 tablet DAILY 1 tablet DAILY (route: oral) Med Classific ation: Cardiovas cular Therapy Agents metoprolol succinate ER 25 mg tablet,exte nded release 24 hr 02-07 00:00: 00 02-21 23:59 :00 No [id number] BLOOD PRESSURE 0.5 tablet DAILY 0.5 tablet DAILY (route: oral) Med Classific ation: Cardiovas cular Therapy Agents pantoprazol e 40 mg tablet,joão yed release 02-07 00:00: 00 02-21 23:59 :00 No [id number] STOMACH ACID 1 tablet DAILY 1 tablet DAILY (route: oral) Med Classific ation: Gastroint estinal Therapy Agents prednisone 5 mg tablet 02-07 00:00: 00 Yes [id number] ADRENAL INSUFFICIEN CY 1 tablet DAILY 1 tablet DAILY (route: oral) Med Classific ation: Endocrine spironolact one 25 mg tablet 02-07 00:00: 00 Yes [id number] FLUID RETENTION 0.5 tablet DAILY 0.5 tablet DAILY (route: oral) Med Classific ation: Cardiovas cular Therapy Agents tamsulosin 0.4 mg capsule 02-07 00:00: 00 02-21 23:59 :00 No [id number] URINARY HEALTH 1 capsule DAILY 1 capsule DAILY (route: oral) Med Classific ation: Genitouri nary Therapy acetaminoph en 325 mg tablet 2024-05 00:00: 00 Yes [id number] PAIN 2 tablet 2 TIMES DAILY 2 tablet 2 TIMES DAILY (route: oral) Med Classific ation: Analgesic , Anti-infl ammatory or Antipyret ic aspirin 81 mg tablet 2024-05 00:00: 00 Yes [id number] ANTICOAGULA NT 1 tablet DAILY 1 tablet DAILY (route: oral) Med Classific ation: Hematolog ical Agents ipratropium 0.5 mg-albutero l 3 mg (2.5 mg base)/3 mL nebulizatio n soln 2024-05 00:00: 00 Yes [id number] COPD 3 mL EVERY 6 HOURS 3 mL EVERY 6 HOURS (route: inhalation ) Med Classific ation: Respirato ry Therapy Agents Lanoxin 62.5 mcg (0.0625 mg) tablet 2024-05 00:00: 00 Yes [id number] CHF 1 tablet DAILY 1 tablet DAILY (route: oral) Med Classific ation: Cardiovas cular Therapy Agents Lasix 20 mg tablet 2024-05 00:00: 00 Yes [id number] CHF 1 tablet DAILY 1 tablet DAILY (route: oral) Med Classific ation: Cardiovas cular Therapy Agents Toprol XL 25 mg tablet,exte nded release 2024-05 00:00: 00 Yes [id number] BP 25 mg DAILY 25 mg DAILY [...] SYSTEM MANAGEMENT; RN TO ASSESS AND TEACH, EMBROIDERER/MANAGER TEST TO OBSERVE AND TEACH RELATED TO ALTERED RESPIRATORY STATUS TO MINIMIZE COMPLICATIONS AND REDUCE HOSPITALIZATION. [code = SN 1WK9 PT 1WK1 OT EFFECTIVE 02/10/2025K1 RESPIRATORY SYSTEM MANAGEMENT; RN TO ASSESS AND TEACH, EMBROIDERER/MANAGER TEST TO OBSERVE AND TEACH RELATED TO ALTERED RESPIRATORY STATUS TO MINIMIZE COMPLICATIONS AND REDUCE HOSPITALIZATION.] Future Scheduled Test TRACHEOSTO MY CARE MANAGEMENT; RN/EMBROIDERER/MANAGER TEST TO INSTRUCT PATIENT/CAREGIVER ON CARE AND MANAGEMENT OF TRACHEOSTOMY. RN/ EMBROIDERER/MANAGER TEST TO PROVIDE SKILLED TEACHING ON TRACH COLLAR SUCTIONING PRN WITH 14 FR SUCTION CATHETER PER PATIENT TRACH CARE WITH INNER CANNULA: REMOVE INNER CANNULA, CLEANSE WITH NORMAL SALINE AND OR STERILE WATER AND REINSERT NON-DISPOSABLE CANNULA SIZE OF INNER CANNULA 5 BROOKS [code = TRACHEOSTOMY CARE MANAGEMENT; RN/EMBROIDERER/MANAGER TEST TO INSTRUCT PATIENT/CAREGIVER ON CARE AND MANAGEMENT OF TRACHEOSTOMY. RN/ EMBROIDERER/MANAGER TEST TO PROVIDE SKILLED TEACHING ON TRACH COLLAR SUCTIONING PRN WITH 14 FR SUCTION CATHETER PER PATIENT TRACH CARE WITH INNER CANNULA: REMOVE INNER CANNULA, CLEANSE WITH NORMAL SALINE AND OR STERILE WATER AND REINSERT NON-DISPOSABLE CANNULA SIZE OF INNER CANNULA 5 BROOKS] Future Scheduled Test FALL REDUC TION MANAGEMENT; RN TO ASSESS AND OBSERVE, EMBROIDERER/MANAGER TEST TO OBSERVE FALL RISK FACTORS AND EDUCATE PATIENT/CAREGIVER ON STRATEGIES TO MINIMIZE THE RISK OF FALLING. [code = FALL REDUCTION MANAGEMENT; RN TO ASSESS AND OBSERVE, EMBROIDERER/MANAGER TEST TO OBSERVE FALL RISK FACTORS AND EDUCATE PATIENT/CAREGIVER ON STRATEGIES TO MINIMIZE THE RISK OF FALLING.] Future Scheduled Test ANEMIA MAN AGEMENT; RN TO ASSESS AND TEACH, MANAGER TEST/EMBROIDERER TO OBSERVE AND TEACH AND PROVIDE EDUCATION ON ANEMIA. [code = ANEMIA MANAGEMENT; RN TO ASSESS AND TEACH, MANAGER TEST/EMBROIDERER TO OBSERVE AND TEACH AND PROVIDE EDUCATION ON ANEMIA.] Future Scheduled Test RN TO OBSE RVE, ASSESS, EVALUATE, AND DEVELOP AN INDIVIDUALIZED PLAN OF CARE. AGENCY MAY ACCEPT ORDERS FROM CONSULTING PHYSICIANS RN TO OBSERVE AND ASSESS, EMBROIDERER/MANAGER TEST TO OBSERVE FOR RISK FOR FALLS AND INSTRUCT IN FALL PREVENTION, HOME SAFETY, MEDICATION MANAGEMENT, INFECTION PREVENTION, AND NUTRITION MANAGEMENT. RN/EMBROIDERER/MANAGER TEST NURSE MAY PERFORM O2 SATURATION LEVEL ON ADMISSION AND PRN FOR RN TO ASSESS/EMBROIDERER TO OBSERVE PATIENT, WITH NOTIFICATION TO THE PHYSICIAN IF SATURATION IS 90% IN THE ABSENCE OF MORE SPECIFIC PARAMETERS FROM THE PHYSICIAN. AGENCY MAY PERFORM A RESUMPTION OF CARE VISIT FOLLOWING ANY HOSPITAL ADMISSION. RN/EMBROIDERER/MANAGER TEST TO MONITOR CO-MORBID CONDITIONS LISTED ON THE PLAN OF CARE AND ANY NEW CONDITIONS THAT PRESENT THEMSELVES DURING THIS EPISODE TO IDENTIFY CHANGES AND INTERVENE TO MINIMIZE COMPLICATIONS. [code = RN TO OBSERVE, ASSESS, EVALUATE, AND DEVELOP AN INDIVIDUALIZED PLAN OF CARE. AGENCY MAY ACCEPT ORDERS FROM CONSULTING PHYSICIANS RN TO OBSERVE AND ASSESS, EMBROIDERER/MANAGER TEST TO OBSERVE FOR RISK FOR FALLS AND INSTRUCT IN FALL PREVENTION, HOME SAFETY, MEDICATION MANAGEMENT, INFECTION PREVENTION, AND NUTRITION MANAGEMENT. RN/EMBROIDERER/MANAGER TEST NURSE MAY PERFORM O2 SATURATION LEVEL ON ADMISSION AND PRN FOR RN TO ASSESS/EMBROIDERER TO OBSERVE PATIENT, WITH NOTIFICATION TO THE PHYSICIAN IF SATURATION IS 90% IN THE ABSENCE OF MORE SPECIFIC PARAMETERS FROM THE PHYSICIAN. AGENCY MAY PERFORM A RESUMPTION OF CARE VISIT FOLLOWING ANY HOSPITAL ADMISSION. RN/EMBROIDERER/MANAGER TEST TO MONITOR CO-MORBID CONDITIONS LISTED ON THE PLAN OF CARE AND ANY NEW CONDITIONS THAT PRESENT THEMSELVES DURING THIS EPISODE TO IDENTIFY CHANGES AND INTERVENE TO MINIMIZE COMPLICATIONS.] Future Scheduled Test PAIN MANAG EMENT; RN TO ASSESS AND TEACH, MANAGER TEST/EMBROIDERER TO OBSERVE AND TEACH AND PROVIDE EDUCATION ON PAIN MANAGEMENT TECHNIQUES. [code = PAIN MANAGEMENT; RN TO ASSESS AND TEACH, MANAGER TEST/EMBROIDERER TO OBSERVE AND TEACH AND PROVIDE EDUCATION ON PAIN MANAGEMENT TECHNIQUES.] Future Scheduled Test RISK FOR H OSPITALIZATION; RN TO ASSESS/TEACH, MANAGER TEST/EMBROIDERER TO OBSERVE/TEACH PATIENT/CAREGIVER ON RISK FOR HOSPITALIZATION/EMERGENCY ROOM VISITS, TEACH SIGNS AND SYMPTOMS THAT PUT PATIENT AT RISK, WHEN TO NOTIFY NURSE/PHYSICIAN OF COMPLICATIONS/DECLINE, AND WHEN TO CALL 911. [code = RISK FOR HOSPITALIZATION; RN TO ASSESS/TEACH, MANAGER TEST/EMBROIDERER TO OBSERVE/TEACH PATIENT/CAREGIVER ON RISK FOR HOSPITALIZATION/EMERGENCY ROOM VISITS, TEACH SIGNS AND SYMPTOMS THAT PUT PATIENT AT RISK, WHEN TO NOTIFY NURSE/PHYSICIAN OF COMPLICATIONS/DECLINE, AND WHEN TO CALL 911.] Future Scheduled Test CARDIOVASC ULAR SYSTEM; RN TO ASSESS/TEACH, EMBROIDERER/MANAGER TEST TO OBSERVE/TEACH RELATED TO ALTERED CARDIOVASCULAR STATUS TO MINIMIZE COMPLICATIONS AND REDUCE HOSPITALIZATION. [code = CARDIOVASCULAR SYSTEM; RN TO ASSESS/TEACH, EMBROIDERER/MANAGER TEST TO OBSERVE/TEACH RELATED TO ALTERED CARDIOVASCULAR STATUS TO MINIMIZE COMPLICATIONS AND REDUCE HOSPITALIZATION.] Future Scheduled Test HYPERTENSI ON MANAGEMENT; RN TO ASSESS AND TEACH, EMBROIDERER/MANAGER TEST TO OBSERVE AND TEACH WARNING SIGNS AND SYMPTOMS TO AVOID HOSPITALIZATION. [code = HYPERTENSION MANAGEMENT; RN TO ASSESS AND TEACH, EMBROIDERER/MANAGER TEST TO OBSERVE AND TEACH WARNING SIGNS AND SYMPTOMS TO AVOID HOSPITALIZATION.] Future Scheduled Test HEART FAIL URE MONITORING RN/MANAGER TEST/EMBROIDERER TO MONITOR PATIENT FOR SIGNS AND SYMPTOMS OF HEART FAILURE EXACERBATION, MONITOR FOR ADHERENCE WITH MEDICATION AND HEART FAILURE MANAGEMENT REGIMEN. [code = HEART FAILURE MONITORING RN/MANAGER TEST/EMBROIDERER TO MONITOR PATIENT FOR SIGNS AND SYMPTOMS OF HEART FAILURE EXACERBATION, MONITOR FOR ADHERENCE WITH MEDICATION AND HEART FAILURE MANAGEMENT REGIMEN.] Future Scheduled Test DIABETES M ONITORING RN/MANAGER TEST/EMBROIDERER TO MONITOR BLOOD SUGAR LOG FOR BLOOD SUGAR READINGS THAT ARE BEING CHECKED BY PATIENT, CAREGIVER NEEDED FOR SIGNS AND SYMPTOMS OF HYPER/HYPOGLYCEMIA. PATIENT THERAPEUTIC BLOOD SUGAR PARAMETERS ARE 70 - 300. REPORT BLOOD SUGARS OUT OF RANGE TO PHYSICIAN. NURSE MAY PERFORM FINGER STICK BLOOD GLUCOSE NEEDED FOR SIGNS AND SYMPTOMS OF HYPO AND HYPERGLYCEMIA. RN/MANAGER TEST/EMBROIDERER TO MONITOR ADHERENCE OF PATIENT/CAREGIVER PERFORMING DIABETIC FOOT CARE AND MAY PERFORM DIABETIC FOOT CARE PRN. RN/MANAGER TEST/EMBROIDERER TO MONITOR FOR ADHERENCE TO DIABETIC SELF-CARE AND MANAGEMENT INCLUDING MEDICATIONS. [code = DIABETES MONITORING RN/MANAGER TEST/EMBROIDERER TO MONITOR BLOOD SUGAR LOG FOR BLOOD SUGAR READINGS THAT ARE BEING CHECKED BY PATIENT, CAREGIVER NEEDED FOR SIGNS AND SYMPTOMS OF HYPER/HYPOGLYCEMIA. PATIENT THERAPEUTIC BLOOD SUGAR PARAMETERS ARE 70 - 300. REPORT BLOOD SUGARS OUT OF RANGE TO PHYSICIAN. NURSE MAY PERFORM FINGER STICK BLOOD GLUCOSE NEEDED FOR SIGNS AND SYMPTOMS OF HYPO AND HYPERGLYCEMIA. RN/MANAGER TEST/EMBROIDERER TO MONITOR ADHERENCE OF PATIENT/CAREGIVER PERFORMING DIABETIC FOOT CARE AND MAY PERFORM DIABETIC FOOT CARE PRN. RN/MANAGER TEST/EMBROIDERER TO MONITOR FOR ADHERENCE TO DIABETIC SELF-CARE AND MANAGEMENT INCLUDING MEDICATIONS.] Future Scheduled Test HYPOTENSIO N MANAGEMENT; RN TO ASSESS AND TEACH/ EMBROIDERER /MANAGER TEST TO OBSERVE AND TEACH WARNING SIGNS AND SYMPTOMS TO AVOID HOSPITALIZATION. [code = HYPOTENSION MANAGEMENT; RN TO ASSESS AND TEACH/ EMBROIDERER /MANAGER TEST TO OBSERVE AND TEACH WARNING SIGNS AND SYMPTOMS TO AVOID HOSPITALIZATION.] Future Scheduled Test ARRHYTHMIA MANAGEMENT; RN TO ASSESS AND TEACH, EMBROIDERER/MANAGER TEST TO OBSERVE AND TEACH WARNING SIGNS AND SYMPTOMS TO AVOID HOSPITALIZATION. [code = ARRHYTHMIA MANAGEMENT; RN TO ASSESS AND TEACH, EMBROIDERER/MANAGER TEST TO OBSERVE AND TEACH WARNING SIGNS AND SYMPTOMS TO AVOID HOSPITALIZATION.] Future Scheduled Test MEDICATION MANAGEMENT; RN/EMBROIDERER/MANAGER TEST TO REVIEW MEDICATIONS FOR INTERACTIONS, EFFECTIVENESS OF DRUG THERAPY, AND SIGNS/SYMPTOMS OF ADVERSE REACTIONS. MAY INSTRUCT AND REINFORCE MEDICATION TEACHING RELATED TO THE USE OF MEDICATIONS, DOSAGE, FREQUENCY, PURPOSE, SIDE EFFECTS, AND TO REPORT COMPLICATIONS. [code = MEDICATION MANAGEMENT; RN/EMBROIDERER/MANAGER TEST TO REVIEW MEDICATIONS FOR INTERACTIONS, EFFECTIVENESS OF [...] EVAL UATE, OBSERVE / ASSESS, AND MONITOR, PADDED PRODUCTS FINISHER TO OBSERVE AND MONITOR, PROVIDE SKILLED THERAPEUTIC INTERVENTION, ACTIVITY, EDUCATION, AND TRAINING TO ADDRESS GEN. WEAKNESS, POOR OVERALL ACTIVITY TOLERANCE, AND FUNCTIONAL LIMITATIONS IMPACTING SAFETY AND INDEPENDENCE. BED MOBILITY (PT/PADDED PRODUCTS FINISHER) PT/PADDED PRODUCTS FINISHER TO PROVIDE GAIT TRAINING FOR IMPROVED MOBILITY AND /OR TO NORMALIZE GAIT PATTERN THERAPEUTIC EXERCISES AND ESTABLISHING A HOME EXERCISE PROGRAM (PT/PADDED PRODUCTS FINISHER) PT/PADDED PRODUCTS FINISHER TO PROVIDE STAIR TRAINING PT / PADDED PRODUCTS FINISHER TO MONITOR AND EDUCATE ON OXYGEN SATURATION DURING ADLS/IADLS, NOTIFY PHYSICIAN AND/OR THE RN CLINICAL EXPORT FREIGHT SPECIALIST FOR PHYSICIAN NOTIFICATION AND IF O2 SATS BELOW PHYSICIAN ORDERED PARAMETERS AFTER 10 MIN OF REST PT / PADDED PRODUCTS FINISHER TO OBSERVE FOR EARLY SIGNS AND SYMPTOMS OF DEPRESSION OR DEPRESSION GETTING WORSE AND TO EDUCATE ON HOW TO FIND HELP. PT / PADDED PRODUCTS FINISHER MAY EDUCATE ON PAIN MANAGEMENT CLINICALLY INDICATED, INCLUDING NON-PHARMACOLOGICAL PAIN REDUCTION TECHNIQUES PT / PADDED PRODUCTS FINISHER TO MONITOR FOR HYPO/HYPERGLYCEMIA AND CONDUCT ROUTINE FOOT INSPECTIONS. RECORD PATIENT REPORTED BLOOD SUGAR LEVELS AND NOTIFY PHYSICIAN AND/OR THE RN CLINICAL EXPORT FREIGHT SPECIALIST FOR PHYSICIAN NOTIFICATION IF BLOOD SUGAR LEVELS ARE OUTSIDE ORDERED PARAMETERS. TEACH PATIENT/CAREGIVER ON DAILY FOOT INSPECTIONS PT / PADDED PRODUCTS FINISHER TO INSTRUCT PATIENT/CAREGIVER ON RISK FOR HOSPITALIZATION/EMERGENCY ROOM VISITS, TEACH SIGNS AND SYMPTOMS THAT PUT PATIENT AT RISK, WHEN TO NOTIFY NURSE/PHYSICIAN OF COMPLICATIONS/DECLINE, AND WHEN TO CALL 911. PT/PADDED PRODUCTS FINISHER TO EDUCATE ON ARTHRITIS SELF-MANAGEMENT PT / PADDED PRODUCTS FINISHER TO EDUCATE ON HEART FAILURE SELF-MANAGEMENT PT / PADDED PRODUCTS FINISHER TO EDUCATE ON HYPERTENSION SELF-MANAGEMENT PT TO ASSESS / PADDED PRODUCTS FINISHER TO MONITOR CARDIO/RESPIRATORY SYSTEM; AND NOTIFY THE PHYSICIAN AND/OR THE RN CLINICAL EXPORT FREIGHT SPECIALIST FOR PHYSICIAN NOTIFICATION FOR EARLY SIGNS AND SYMPTOMS OF EXACERBATION OR DETERIORATION. PT / PADDED PRODUCTS FINISHER TO EDUCATE ON ATRIAL FIBRILLATION SELF-MANAGEMENT. PT / PADDED PRODUCTS FINISHER TO EDUCATE ON PNEUMONIA / ASPIRATION PNEUMONIA SELF-MANAGEMENT. PT/PADDED PRODUCTS FINISHER TO IDENTIFY FALL RISK FACTORS; EDUCATE THE PATIENT/CAREGIVER ON WAYS TO REDUCE FALL RISK FACTORS AND ESTABLISH HOME EXERCISE PROGRAM TO MINIMIZE FALL RISK. MAY TEACH THE PATIENT FLOOR RECOVERY WHEN CLINICALLY APPROPRIATE [code = PT TO EVALUATE, OBSERVE / ASSESS, AND MONITOR, PADDED PRODUCTS FINISHER TO OBSERVE AND MONITOR, PROVIDE SKILLED THERAPEUTIC INTERVENTION, ACTIVITY, EDUCATION, AND TRAINING TO ADDRESS GEN. WEAKNESS, POOR OVERALL ACTIVITY TOLERANCE, AND FUNCTIONAL LIMITATIONS IMPACTING SAFETY AND INDEPENDENCE. BED MOBILITY (PT/PADDED PRODUCTS FINISHER) PT/PADDED PRODUCTS FINISHER TO PROVIDE GAIT TRAINING FOR IMPROVED MOBILITY AND /OR TO NORMALIZE GAIT PATTERN THERAPEUTIC EXERCISES AND ESTABLISHING A HOME EXERCISE PROGRAM (PT/PADDED PRODUCTS FINISHER) PT/PADDED PRODUCTS FINISHER TO PROVIDE STAIR TRAINING PT / PADDED PRODUCTS FINISHER TO MONITOR AND EDUCATE ON OXYGEN SATURATION DURING ADLS/IADLS, NOTIFY PHYSICIAN AND/OR THE RN CLINICAL EXPORT FREIGHT SPECIALIST FOR PHYSICIAN NOTIFICATION AND IF O2 SATS BELOW PHYSICIAN ORDERED PARAMETERS AFTER 10 MIN OF REST PT / PADDED PRODUCTS FINISHER TO OBSERVE FOR EARLY SIGNS AND SYMPTOMS OF DEPRESSION OR DEPRESSION GETTING WORSE AND TO EDUCATE ON HOW TO FIND HELP. PT / PADDED PRODUCTS FINISHER MAY EDUCATE ON PAIN MANAGEMENT CLINICALLY INDICATED, INCLUDING NON-PHARMACOLOGICAL PAIN REDUCTION TECHNIQUES PT / PADDED PRODUCTS FINISHER TO MONITOR FOR HYPO/HYPERGLYCEMIA AND CONDUCT ROUTINE FOOT INSPECTIONS. RECORD PATIENT REPORTED BLOOD SUGAR LEVELS AND NOTIFY PHYSICIAN AND/OR THE RN CLINICAL EXPORT FREIGHT SPECIALIST FOR PHYSICIAN NOTIFICATION IF BLOOD SUGAR LEVELS ARE OUTSIDE ORDERED PARAMETERS. TEACH PATIENT/CAREGIVER ON DAILY FOOT INSPECTIONS PT / PADDED PRODUCTS FINISHER TO INSTRUCT PATIENT/CAREGIVER ON RISK FOR HOSPITALIZATION/EMERGENCY ROOM VISITS, TEACH SIGNS AND SYMPTOMS THAT PUT PATIENT AT RISK, WHEN TO NOTIFY NURSE/PHYSICIAN OF COMPLICATIONS/DECLINE, AND WHEN TO CALL 911. PT/PADDED PRODUCTS FINISHER TO EDUCATE ON ARTHRITIS SELF-MANAGEMENT PT / PADDED PRODUCTS FINISHER TO EDUCATE ON HEART FAILURE SELF-MANAGEMENT PT / PADDED PRODUCTS FINISHER TO EDUCATE ON HYPERTENSION SELF-MANAGEMENT PT TO ASSESS / PADDED PRODUCTS FINISHER TO MONITOR CARDIO/RESPIRATORY SYSTEM; AND NOTIFY THE PHYSICIAN AND/OR THE RN CLINICAL EXPORT FREIGHT SPECIALIST FOR PHYSICIAN NOTIFICATION FOR EARLY SIGNS AND SYMPTOMS OF EXACERBATION OR DETERIORATION. PT / PADDED PRODUCTS FINISHER TO EDUCATE ON ATRIAL FIBRILLATION SELF-MANAGEMENT. PT / PADDED PRODUCTS FINISHER TO EDUCATE ON PNEUMONIA / ASPIRATION PNEUMONIA SELF-MANAGEMENT. PT/PADDED PRODUCTS FINISHER TO IDENTIFY FALL RISK FACTORS; EDUCATE THE PATIENT/CAREGIVER ON WAYS TO REDUCE FALL RISK FACTORS AND ESTABLISH HOME EXERCISE PROGRAM TO MINIMIZE FALL RISK. MAY TEACH THE PATIENT FLOOR RECOVERY WHEN CLINICALLY APPROPRIATE] Future Scheduled Test AGENCY MAY PERFORM A RESUMPTION OF CARE VISIT FOLLOWING ANY HOSPITAL ADMISSION. OT TO EVALUATE, OBSERVE / ASSESS, AND MONITOR, NEGATIVE CUTTER TO OBSERVE AND MONITOR, PROVIDE SKILLED THERAPEUTIC INTERVENTION, ACTIVITY, EDUCATION, AND TRAINING TO ADDRESS SAFETY AND INDEPENDENCE OF ADLS AND FUNCTIONAL TRANSFERS IN HOME ENVIRONMENT. ACTIVITIES OF DAILY LIVING (OT/MARIANNE) THERAPEUTIC EXERCISE (OT/NEGATIVE CUTTER) ENERGY CONSERVATION/ACTIVITY DEMAND (OT/NEGATIVE CUTTER) OT/NEGATIVE CUTTER TO MONITOR AND EDUCATE ON OXYGEN SATURATION DURING ADLS/IADLS, NOTIFY PHYSICIAN AND/OR THE RN CLINICAL EXPORT FREIGHT SPECIALIST FOR PHYSICIAN NOTIFICATION AND IF O2 SATS BELOW 90% AFTER 10 MIN OF REST. OT / NEGATIVE CUTTER TO IDENTIFY FALL RISK FACTORS; EDUCATE THE PATIENT/CAREGIVER ON WAYS TO REDUCE FALL RISK FACTORS AND ESTABLISH HOME EXERCISE PROGRAM TO MINIMIZE FALL RISK. MAY TEACH THE PATIENT FLOOR RECOVERY WHEN CLINICALLY APPROPRIATE. OT/NEGATIVE CUTTER TO EDUCATE ON HYPERTENSION SELF-MANAGEMENT OT/MARIANNE TO EDUCATE ON ATRIAL FIBRILLATION SELF-MANAGEMENT. [code = AGENCY MAY PERFORM A RESUMPTION OF CARE VISIT FOLLOWING ANY HOSPITAL ADMISSION. OT TO EVALUATE, OBSERVE / ASSESS, AND MONITOR, NEGATIVE CUTTER TO OBSERVE AND MONITOR, PROVIDE SKILLED THERAPEUTIC INTERVENTION, ACTIVITY, EDUCATION, AND TRAINING TO ADDRESS SAFETY AND INDEPENDENCE OF ADLS AND FUNCTIONAL TRANSFERS IN HOME ENVIRONMENT. ACTIVITIES OF DAILY LIVING (OT/MARIANNE) THERAPEUTIC EXERCISE (OT/NEGATIVE CUTTER) ENERGY CONSERVATION/ACTIVITY DEMAND (OT/MARIANNE) OT/NEGATIVE CUTTER TO MONITOR AND EDUCATE ON OXYGEN SATURATION DURING ADLS/IADLS, NOTIFY PHYSICIAN AND/OR THE RN CLINICAL EXPORT FREIGHT SPECIALIST FOR PHYSICIAN NOTIFICATION AND IF O2 SATS BELOW 90% AFTER 10 MIN OF REST. OT / MARIANNE TO IDENTIFY FALL RISK FACTORS; EDUCATE THE PATIENT/CAREGIVER ON WAYS TO REDUCE FALL RISK FACTORS AND ESTABLISH HOME EXERCISE PROGRAM TO MINIMIZE FALL RISK. MAY TEACH THE PATIENT FLOOR RECOVERY WHEN CLINICALLY APPROPRIATE. OT/NEGATIVE CUTTER TO EDUCATE ON HYPERTENSION SELF-MANAGEMENT OT/MARIANNE TO [...] OF SKIN INTEGRITY ISSUES FROM SBA TO GA WITHIN 2 WKS. PT STG: PATIENT WILL [...] TO SAFELY NEGOTIATE STAIRS FROM SBA TO GA WITH 2 STEPS W/O HANDRAIL VIA FRONT [...] EVIDENCED BY A REDUCTION IN [place] SCORE FROM 13 TO 10 DURING FUNCTIONAL [...] Outpatient NEW ADMISSION [facility] [id number]
--- OUTSIDE RECORDS SUMMARY | 2025-04-06 18:00 | XMS_ITS | Clinical Summary ---
Author Organization Unknown Care Team Providers Care Network Internship Name Role Phone DIGNA ARIEL, ESTRELLA Unavailable Unava dinora STOKES RN, FRANKIE Unavailable Unavailabl e KARI PT, DIDI Unavailable Unavailable NTA CLAIMS TECHNICIAN, GAUDENCIO Unavailable Unavailabl e RADHA OT, ROLANDO Unavailable Unavailable JOANNE STEVEN, HATTIE Unavailable Unavailable Payers Payer Name Policy Type Policy Number Effective Date Expira tion Date MEDICARE.[facility] [id number] Problems Condition Name Condition Details Condition Category Status Onset Date Resolution Date Last Treatment Date Treating Clinician Comments 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 02-07 [...] OF PNEUMONIA (RECURRENT) Active 02-07 00:00: 00 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 STEROIDS Active 02-07 [...] 80 mg tablet 02-07 00:00: 00 Yes [id number] CHOLESTEROL 1 tablet DAILY 1 tablet DAILY (route: oral) Med Classific ation: Cardiovas cular Therapy Agents digoxin 125 mcg (0.125 mg) tablet 02-07 00:00: 00 02-21 23:59 :00 No [id number] HEART RHYTHM 1 tablet DAILY 1 tablet DAILY (route: oral) Med Classific ation: Cardiovas cular Therapy Agents escitalopra m 10 mg tablet 02-07 00:00: 00 Yes [id number] MOOD 1 tablet DAILY 1 tablet DAILY (route: oral) Med Classific ation: Central Nervous System Agents ezetimibe 10 mg tablet 02-07 00:00: 00 Yes [id number] CHOLESTEROL 1 tablet DAILY 1 tablet DAILY (route: oral) Med Classific ation: Cardiovas cular Therapy Agents metoprolol succinate ER 25 mg tablet,exte nded release 24 hr 02-07 00:00: 00 02-21 23:59 :00 No [id number] BLOOD PRESSURE 0.5 tablet DAILY 0.5 tablet DAILY (route: oral) Med Classific ation: Cardiovas cular Therapy Agents pantoprazol e 40 mg tablet,joão yed release 02-07 00:00: 00 02-21 23:59 :00 No [id number] STOMACH ACID 1 tablet DAILY 1 tablet DAILY (route: oral) Med Classific ation: Gastroint estinal Therapy Agents prednisone 5 mg tablet 02-07 00:00: 00 Yes [id number] ADRENAL INSUFFICIEN CY 1 tablet DAILY 1 tablet DAILY (route: oral) Med Classific ation: Endocrine spironolact one 25 mg tablet 02-07 00:00: 00 Yes [id number] FLUID RETENTION 0.5 tablet DAILY 0.5 tablet DAILY (route: oral) Med Classific ation: Cardiovas cular Therapy Agents tamsulosin 0.4 mg capsule 02-07 00:00: 00 02-21 23:59 :00 No [id number] URINARY HEALTH 1 capsule DAILY 1 capsule DAILY (route: oral) Med Classific ation: Genitouri nary Therapy acetaminoph en 325 mg tablet 2024-05 00:00: 00 Yes [id number] PAIN 2 tablet 2 TIMES DAILY 2 tablet 2 TIMES DAILY (route: oral) Med Classific ation: Analgesic , Anti-infl ammatory or Antipyret ic aspirin 81 mg tablet 2024-05 00:00: 00 Yes [id number] ANTICOAGULA NT 1 tablet DAILY 1 tablet DAILY (route: oral) Med Classific ation: Hematolog ical Agents ipratropium 0.5 mg-albutero l 3 mg (2.5 mg base)/3 mL nebulizatio n soln 2024-05 00:00: 00 Yes [id number] COPD 3 mL EVERY 6 HOURS 3 mL EVERY 6 HOURS (route: inhalation ) Med Classific ation: Respirato ry Therapy Agents Lanoxin 62.5 mcg (0.0625 mg) tablet 2024-05 00:00: 00 Yes [id number] CHF 1 tablet DAILY 1 tablet DAILY (route: oral) Med Classific ation: Cardiovas cular Therapy Agents Lasix 20 mg tablet 2024-05 00:00: 00 Yes [id number] CHF 1 tablet DAILY 1 tablet DAILY (route: oral) Med Classific ation: Cardiovas cular Therapy Agents Toprol XL 25 mg tablet,exte nded release 2024-05 00:00: 00 Yes [id number] BP 25 mg DAILY 25 mg DAILY [...] SYSTEM MANAGEMENT; RN TO ASSESS AND TEACH, PET CREMATORY WORKER/LYE TREATER TO OBSERVE AND TEACH RELATED TO ALTERED RESPIRATORY STATUS TO MINIMIZE COMPLICATIONS AND REDUCE HOSPITALIZATION. [code = SN 1WK9 PT 1WK1 OT EFFECTIVE 02/10/2025K1 RESPIRATORY SYSTEM MANAGEMENT; RN TO ASSESS AND TEACH, PET CREMATORY WORKER/LYE TREATER TO OBSERVE AND TEACH RELATED TO ALTERED RESPIRATORY STATUS TO MINIMIZE COMPLICATIONS AND REDUCE HOSPITALIZATION.] Future Scheduled Test TRACHEOSTO MY CARE MANAGEMENT; RN/PET CREMATORY WORKER/LYE TREATER TO INSTRUCT PATIENT/CAREGIVER ON CARE AND MANAGEMENT OF TRACHEOSTOMY. RN/ PET CREMATORY WORKER/LYE TREATER TO PROVIDE SKILLED TEACHING ON TRACH COLLAR SUCTIONING PRN WITH 14 FR SUCTION CATHETER PER PATIENT TRACH CARE WITH INNER CANNULA: REMOVE INNER CANNULA, CLEANSE WITH NORMAL SALINE AND OR STERILE WATER AND REINSERT NON-DISPOSABLE CANNULA SIZE OF INNER CANNULA 5 BROOKS [code = TRACHEOSTOMY CARE MANAGEMENT; RN/PET CREMATORY WORKER/LYE TREATER TO INSTRUCT PATIENT/CAREGIVER ON CARE AND MANAGEMENT OF TRACHEOSTOMY. RN/ PET CREMATORY WORKER/LYE TREATER TO PROVIDE SKILLED TEACHING ON TRACH COLLAR SUCTIONING PRN WITH 14 FR SUCTION CATHETER PER PATIENT TRACH CARE WITH INNER CANNULA: REMOVE INNER CANNULA, CLEANSE WITH NORMAL SALINE AND OR STERILE WATER AND REINSERT NON-DISPOSABLE CANNULA SIZE OF INNER CANNULA 5 BROOKS] Future Scheduled Test FALL REDUC TION MANAGEMENT; RN TO ASSESS AND OBSERVE, PET CREMATORY WORKER/LYE TREATER TO OBSERVE FALL RISK FACTORS AND EDUCATE PATIENT/CAREGIVER ON STRATEGIES TO MINIMIZE THE RISK OF FALLING. [code = FALL REDUCTION MANAGEMENT; RN TO ASSESS AND OBSERVE, PET CREMATORY WORKER/LYE TREATER TO OBSERVE FALL RISK FACTORS AND EDUCATE PATIENT/CAREGIVER ON STRATEGIES TO MINIMIZE THE RISK OF FALLING.] Future Scheduled Test ANEMIA MAN AGEMENT; RN TO ASSESS AND TEACH, LYE TREATER/PET CREMATORY WORKER TO OBSERVE AND TEACH AND PROVIDE EDUCATION ON ANEMIA. [code = ANEMIA MANAGEMENT; RN TO ASSESS AND TEACH, LYE TREATER/PET CREMATORY WORKER TO OBSERVE AND TEACH AND PROVIDE EDUCATION ON ANEMIA.] Future Scheduled Test RN TO OBSE RVE, ASSESS, EVALUATE, AND DEVELOP AN INDIVIDUALIZED PLAN OF CARE. AGENCY MAY ACCEPT ORDERS FROM CONSULTING PHYSICIANS RN TO OBSERVE AND ASSESS, PET CREMATORY WORKER/LYE TREATER TO OBSERVE FOR RISK FOR FALLS AND INSTRUCT IN FALL PREVENTION, HOME SAFETY, MEDICATION MANAGEMENT, INFECTION PREVENTION, AND NUTRITION MANAGEMENT. RN/PET CREMATORY WORKER/LYE TREATER NURSE MAY PERFORM O2 SATURATION LEVEL ON ADMISSION AND PRN FOR RN TO ASSESS/PET CREMATORY WORKER TO OBSERVE PATIENT, WITH NOTIFICATION TO THE PHYSICIAN IF SATURATION IS 90% IN THE ABSENCE OF MORE SPECIFIC PARAMETERS FROM THE PHYSICIAN. AGENCY MAY PERFORM A RESUMPTION OF CARE VISIT FOLLOWING ANY HOSPITAL ADMISSION. RN/PET CREMATORY WORKER/LYE TREATER TO MONITOR CO-MORBID CONDITIONS LISTED ON THE PLAN OF CARE AND ANY NEW CONDITIONS THAT PRESENT THEMSELVES DURING THIS EPISODE TO IDENTIFY CHANGES AND INTERVENE TO MINIMIZE COMPLICATIONS. [code = RN TO OBSERVE, ASSESS, EVALUATE, AND DEVELOP AN INDIVIDUALIZED PLAN OF CARE. AGENCY MAY ACCEPT ORDERS FROM CONSULTING PHYSICIANS RN TO OBSERVE AND ASSESS, PET CREMATORY WORKER/LYE TREATER TO OBSERVE FOR RISK FOR FALLS AND INSTRUCT IN FALL PREVENTION, HOME SAFETY, MEDICATION MANAGEMENT, INFECTION PREVENTION, AND NUTRITION MANAGEMENT. RN/PET CREMATORY WORKER/LYE TREATER NURSE MAY PERFORM O2 SATURATION LEVEL ON ADMISSION AND PRN FOR RN TO ASSESS/PET CREMATORY WORKER TO OBSERVE PATIENT, WITH NOTIFICATION TO THE PHYSICIAN IF SATURATION IS 90% IN THE ABSENCE OF MORE SPECIFIC PARAMETERS FROM THE PHYSICIAN. AGENCY MAY PERFORM A RESUMPTION OF CARE VISIT FOLLOWING ANY HOSPITAL ADMISSION. RN/PET CREMATORY WORKER/LYE TREATER TO MONITOR CO-MORBID CONDITIONS LISTED ON THE PLAN OF CARE AND ANY NEW CONDITIONS THAT PRESENT THEMSELVES DURING THIS EPISODE TO IDENTIFY CHANGES AND INTERVENE TO MINIMIZE COMPLICATIONS.] Future Scheduled Test PAIN MANAG EMENT; RN TO ASSESS AND TEACH, LYE TREATER/PET CREMATORY WORKER TO OBSERVE AND TEACH AND PROVIDE EDUCATION ON PAIN MANAGEMENT TECHNIQUES. [code = PAIN MANAGEMENT; RN TO ASSESS AND TEACH, LYE TREATER/PET CREMATORY WORKER TO OBSERVE AND TEACH AND PROVIDE EDUCATION ON PAIN MANAGEMENT TECHNIQUES.] Future Scheduled Test RISK FOR H OSPITALIZATION; RN TO ASSESS/TEACH, LYE TREATER/PET CREMATORY WORKER TO OBSERVE/TEACH PATIENT/CAREGIVER ON RISK FOR HOSPITALIZATION/EMERGENCY ROOM VISITS, TEACH SIGNS AND SYMPTOMS THAT PUT PATIENT AT RISK, WHEN TO NOTIFY NURSE/PHYSICIAN OF COMPLICATIONS/DECLINE, AND WHEN TO CALL 911. [code = RISK FOR HOSPITALIZATION; RN TO ASSESS/TEACH, LYE TREATER/PET CREMATORY WORKER TO OBSERVE/TEACH PATIENT/CAREGIVER ON RISK FOR HOSPITALIZATION/EMERGENCY ROOM VISITS, TEACH SIGNS AND SYMPTOMS THAT PUT PATIENT AT RISK, WHEN TO NOTIFY NURSE/PHYSICIAN OF COMPLICATIONS/DECLINE, AND WHEN TO CALL 911.] Future Scheduled Test CARDIOVASC ULAR SYSTEM; RN TO ASSESS/TEACH, PET CREMATORY WORKER/LYE TREATER TO OBSERVE/TEACH RELATED TO ALTERED CARDIOVASCULAR STATUS TO MINIMIZE COMPLICATIONS AND REDUCE HOSPITALIZATION. [code = CARDIOVASCULAR SYSTEM; RN TO ASSESS/TEACH, PET CREMATORY WORKER/LYE TREATER TO OBSERVE/TEACH RELATED TO ALTERED CARDIOVASCULAR STATUS TO MINIMIZE COMPLICATIONS AND REDUCE HOSPITALIZATION.] Future Scheduled Test HYPERTENSI ON MANAGEMENT; RN TO ASSESS AND TEACH, PET CREMATORY WORKER/LYE TREATER TO OBSERVE AND TEACH WARNING SIGNS AND SYMPTOMS TO AVOID HOSPITALIZATION. [code = HYPERTENSION MANAGEMENT; RN TO ASSESS AND TEACH, PET CREMATORY WORKER/LYE TREATER TO OBSERVE AND TEACH WARNING SIGNS AND SYMPTOMS TO AVOID HOSPITALIZATION.] Future Scheduled Test HEART FAIL URE MONITORING RN/LYE TREATER/PET CREMATORY WORKER TO MONITOR PATIENT FOR SIGNS AND SYMPTOMS OF HEART FAILURE EXACERBATION, MONITOR FOR ADHERENCE WITH MEDICATION AND HEART FAILURE MANAGEMENT REGIMEN. [code = HEART FAILURE MONITORING RN/LYE TREATER/PET CREMATORY WORKER TO MONITOR PATIENT FOR SIGNS AND SYMPTOMS OF HEART FAILURE EXACERBATION, MONITOR FOR ADHERENCE WITH MEDICATION AND HEART FAILURE MANAGEMENT REGIMEN.] Future Scheduled Test DIABETES M ONITORING RN/LYE TREATER/PET CREMATORY WORKER TO MONITOR BLOOD SUGAR LOG FOR BLOOD SUGAR READINGS THAT ARE BEING CHECKED BY PATIENT, CAREGIVER NEEDED FOR SIGNS AND SYMPTOMS OF HYPER/HYPOGLYCEMIA. PATIENT THERAPEUTIC BLOOD SUGAR PARAMETERS ARE 70 - 300. REPORT BLOOD SUGARS OUT OF RANGE TO PHYSICIAN. NURSE MAY PERFORM FINGER STICK BLOOD GLUCOSE NEEDED FOR SIGNS AND SYMPTOMS OF HYPO AND HYPERGLYCEMIA. RN/LYE TREATER/PET CREMATORY WORKER TO MONITOR ADHERENCE OF PATIENT/CAREGIVER PERFORMING DIABETIC FOOT CARE AND MAY PERFORM DIABETIC FOOT CARE PRN. RN/LYE TREATER/PET CREMATORY WORKER TO MONITOR FOR ADHERENCE TO DIABETIC SELF-CARE AND MANAGEMENT INCLUDING MEDICATIONS. [code = DIABETES MONITORING RN/LYE TREATER/PET CREMATORY WORKER TO MONITOR BLOOD SUGAR LOG FOR BLOOD SUGAR READINGS THAT ARE BEING CHECKED BY PATIENT, CAREGIVER NEEDED FOR SIGNS AND SYMPTOMS OF HYPER/HYPOGLYCEMIA. PATIENT THERAPEUTIC BLOOD SUGAR PARAMETERS ARE 70 - 300. REPORT BLOOD SUGARS OUT OF RANGE TO PHYSICIAN. NURSE MAY PERFORM FINGER STICK BLOOD GLUCOSE NEEDED FOR SIGNS AND SYMPTOMS OF HYPO AND HYPERGLYCEMIA. RN/LYE TREATER/PET CREMATORY WORKER TO MONITOR ADHERENCE OF PATIENT/CAREGIVER PERFORMING DIABETIC FOOT CARE AND MAY PERFORM DIABETIC FOOT CARE PRN. RN/LYE TREATER/PET CREMATORY WORKER TO MONITOR FOR ADHERENCE TO DIABETIC SELF-CARE AND MANAGEMENT INCLUDING MEDICATIONS.] Future Scheduled Test HYPOTENSIO N MANAGEMENT; RN TO ASSESS AND TEACH/ PET CREMATORY WORKER /LYE TREATER TO OBSERVE AND TEACH WARNING SIGNS AND SYMPTOMS TO AVOID HOSPITALIZATION. [code = HYPOTENSION MANAGEMENT; RN TO ASSESS AND TEACH/ PET CREMATORY WORKER /LYE TREATER TO OBSERVE AND TEACH WARNING SIGNS AND SYMPTOMS TO AVOID HOSPITALIZATION.] Future Scheduled Test ARRHYTHMIA MANAGEMENT; RN TO ASSESS AND TEACH, PET CREMATORY WORKER/LYE TREATER TO OBSERVE AND TEACH WARNING SIGNS AND SYMPTOMS TO AVOID HOSPITALIZATION. [code = ARRHYTHMIA MANAGEMENT; RN TO ASSESS AND TEACH, PET CREMATORY WORKER/LYE TREATER TO OBSERVE AND TEACH WARNING SIGNS AND SYMPTOMS TO AVOID HOSPITALIZATION.] Future Scheduled Test MEDICATION MANAGEMENT; RN/PET CREMATORY WORKER/LYE TREATER TO REVIEW MEDICATIONS FOR INTERACTIONS, EFFECTIVENESS OF DRUG THERAPY, AND SIGNS/SYMPTOMS OF ADVERSE REACTIONS. MAY INSTRUCT AND REINFORCE MEDICATION TEACHING RELATED TO THE USE OF MEDICATIONS, DOSAGE, FREQUENCY, PURPOSE, SIDE EFFECTS, AND TO REPORT COMPLICATIONS. [code = MEDICATION MANAGEMENT; RN/PET CREMATORY WORKER/LYE TREATER TO REVIEW MEDICATIONS FOR INTERACTIONS, EFFECTIVENESS [...] EVAL UATE, OBSERVE / ASSESS, AND MONITOR, CLAIMS TECHNICIAN TO OBSERVE AND MONITOR, PROVIDE SKILLED THERAPEUTIC INTERVENTION, ACTIVITY, EDUCATION, AND TRAINING TO ADDRESS GEN. WEAKNESS, POOR OVERALL ACTIVITY TOLERANCE, AND FUNCTIONAL LIMITATIONS IMPACTING SAFETY AND INDEPENDENCE. BED MOBILITY (PT/CLAIMS TECHNICIAN) PT/CLAIMS TECHNICIAN TO PROVIDE GAIT TRAINING FOR IMPROVED MOBILITY AND /OR TO NORMALIZE GAIT PATTERN THERAPEUTIC EXERCISES AND ESTABLISHING A HOME EXERCISE PROGRAM (PT/CLAIMS TECHNICIAN) PT/CLAIMS TECHNICIAN TO PROVIDE STAIR TRAINING PT / CLAIMS TECHNICIAN TO MONITOR AND EDUCATE ON OXYGEN SATURATION DURING ADLS/IADLS, NOTIFY PHYSICIAN AND/OR THE RN CLINICAL ENGINEERING CLERK FOR PHYSICIAN NOTIFICATION AND IF O2 SATS BELOW PHYSICIAN ORDERED PARAMETERS AFTER 10 MIN OF REST PT / CLAIMS TECHNICIAN TO OBSERVE FOR EARLY SIGNS AND SYMPTOMS OF DEPRESSION OR DEPRESSION GETTING WORSE AND TO EDUCATE ON HOW TO FIND HELP. PT / CLAIMS TECHNICIAN MAY EDUCATE ON PAIN MANAGEMENT CLINICALLY INDICATED, INCLUDING NON-PHARMACOLOGICAL PAIN REDUCTION TECHNIQUES PT / CLAIMS TECHNICIAN TO MONITOR FOR HYPO/HYPERGLYCEMIA AND CONDUCT ROUTINE FOOT INSPECTIONS. RECORD PATIENT REPORTED BLOOD SUGAR LEVELS AND NOTIFY PHYSICIAN AND/OR THE RN CLINICAL ENGINEERING CLERK FOR PHYSICIAN NOTIFICATION IF BLOOD SUGAR LEVELS ARE OUTSIDE ORDERED PARAMETERS. TEACH PATIENT/CAREGIVER ON DAILY FOOT INSPECTIONS PT / CLAIMS TECHNICIAN TO INSTRUCT PATIENT/CAREGIVER ON RISK FOR HOSPITALIZATION/EMERGENCY ROOM VISITS, TEACH SIGNS AND SYMPTOMS THAT PUT PATIENT AT RISK, WHEN TO NOTIFY NURSE/PHYSICIAN OF COMPLICATIONS/DECLINE, AND WHEN TO CALL 911. PT/CLAIMS TECHNICIAN TO EDUCATE ON ARTHRITIS SELF-MANAGEMENT PT / CLAIMS TECHNICIAN TO EDUCATE ON HEART FAILURE SELF-MANAGEMENT PT / CLAIMS TECHNICIAN TO EDUCATE ON HYPERTENSION SELF-MANAGEMENT PT TO ASSESS / CLAIMS TECHNICIAN TO MONITOR CARDIO/RESPIRATORY SYSTEM; AND NOTIFY THE PHYSICIAN AND/OR THE RN CLINICAL ENGINEERING CLERK FOR PHYSICIAN NOTIFICATION FOR EARLY SIGNS AND SYMPTOMS OF EXACERBATION OR DETERIORATION. PT / CLAIMS TECHNICIAN TO EDUCATE ON ATRIAL FIBRILLATION SELF-MANAGEMENT. PT / CLAIMS TECHNICIAN TO EDUCATE ON PNEUMONIA / ASPIRATION PNEUMONIA SELF-MANAGEMENT. PT/CLAIMS TECHNICIAN TO IDENTIFY FALL RISK FACTORS; EDUCATE THE PATIENT/CAREGIVER ON WAYS TO REDUCE FALL RISK FACTORS AND ESTABLISH HOME EXERCISE PROGRAM TO MINIMIZE FALL RISK. MAY TEACH THE PATIENT FLOOR RECOVERY WHEN CLINICALLY APPROPRIATE [code = PT TO EVALUATE, OBSERVE / ASSESS, AND MONITOR, CLAIMS TECHNICIAN TO OBSERVE AND MONITOR, PROVIDE SKILLED THERAPEUTIC INTERVENTION, ACTIVITY, EDUCATION, AND TRAINING TO ADDRESS GEN. WEAKNESS, POOR OVERALL ACTIVITY TOLERANCE, AND FUNCTIONAL LIMITATIONS IMPACTING SAFETY AND INDEPENDENCE. BED MOBILITY (PT/CLAIMS TECHNICIAN) PT/CLAIMS TECHNICIAN TO PROVIDE GAIT TRAINING FOR IMPROVED MOBILITY AND /OR TO NORMALIZE GAIT PATTERN THERAPEUTIC EXERCISES AND ESTABLISHING A HOME EXERCISE PROGRAM (PT/CLAIMS TECHNICIAN) PT/CLAIMS TECHNICIAN TO PROVIDE STAIR TRAINING PT / CLAIMS TECHNICIAN TO MONITOR AND EDUCATE ON OXYGEN SATURATION DURING ADLS/IADLS, NOTIFY PHYSICIAN AND/OR THE RN CLINICAL ENGINEERING CLERK FOR PHYSICIAN NOTIFICATION AND IF O2 SATS BELOW PHYSICIAN ORDERED PARAMETERS AFTER 10 MIN OF REST PT / CLAIMS TECHNICIAN TO OBSERVE FOR EARLY SIGNS AND SYMPTOMS OF DEPRESSION OR DEPRESSION GETTING WORSE AND TO EDUCATE ON HOW TO FIND HELP. PT / CLAIMS TECHNICIAN MAY EDUCATE ON PAIN MANAGEMENT CLINICALLY INDICATED, INCLUDING NON-PHARMACOLOGICAL PAIN REDUCTION TECHNIQUES PT / CLAIMS TECHNICIAN TO MONITOR FOR HYPO/HYPERGLYCEMIA AND CONDUCT ROUTINE FOOT INSPECTIONS. RECORD PATIENT REPORTED BLOOD SUGAR LEVELS AND NOTIFY PHYSICIAN AND/OR THE RN CLINICAL ENGINEERING CLERK FOR PHYSICIAN NOTIFICATION IF BLOOD SUGAR LEVELS ARE OUTSIDE ORDERED PARAMETERS. TEACH PATIENT/CAREGIVER ON DAILY FOOT INSPECTIONS PT / CLAIMS TECHNICIAN TO INSTRUCT PATIENT/CAREGIVER ON RISK FOR HOSPITALIZATION/EMERGENCY ROOM VISITS, TEACH SIGNS AND SYMPTOMS THAT PUT PATIENT AT RISK, WHEN TO NOTIFY NURSE/PHYSICIAN OF COMPLICATIONS/DECLINE, AND WHEN TO CALL 911. PT/CLAIMS TECHNICIAN TO EDUCATE ON ARTHRITIS SELF-MANAGEMENT PT / CLAIMS TECHNICIAN TO EDUCATE ON HEART FAILURE SELF-MANAGEMENT PT / CLAIMS TECHNICIAN TO EDUCATE ON HYPERTENSION SELF-MANAGEMENT PT TO ASSESS / CLAIMS TECHNICIAN TO MONITOR CARDIO/RESPIRATORY SYSTEM; AND NOTIFY THE PHYSICIAN AND/OR THE RN CLINICAL ENGINEERING CLERK FOR PHYSICIAN NOTIFICATION FOR EARLY SIGNS AND SYMPTOMS OF EXACERBATION OR DETERIORATION. PT / CLAIMS TECHNICIAN TO EDUCATE ON ATRIAL FIBRILLATION SELF-MANAGEMENT. PT / CLAIMS TECHNICIAN TO EDUCATE ON PNEUMONIA / ASPIRATION PNEUMONIA SELF-MANAGEMENT. PT/CLAIMS TECHNICIAN TO IDENTIFY FALL RISK FACTORS; EDUCATE THE PATIENT/CAREGIVER ON WAYS TO REDUCE FALL RISK FACTORS AND ESTABLISH HOME EXERCISE PROGRAM TO MINIMIZE FALL RISK. MAY TEACH THE PATIENT FLOOR RECOVERY WHEN CLINICALLY APPROPRIATE] Future Scheduled Test AGENCY MAY PERFORM A RESUMPTION OF CARE VISIT FOLLOWING ANY HOSPITAL ADMISSION. OT TO EVALUATE, OBSERVE / ASSESS, AND MONITOR, DANCE HALL HOSTESS TO OBSERVE AND MONITOR, PROVIDE SKILLED THERAPEUTIC INTERVENTION, ACTIVITY, EDUCATION, AND TRAINING TO ADDRESS SAFETY AND INDEPENDENCE OF ADLS AND FUNCTIONAL TRANSFERS IN HOME ENVIRONMENT. ACTIVITIES OF DAILY LIVING (OT/MARIANNE) THERAPEUTIC EXERCISE (OT/DANCE HALL HOSTESS) ENERGY CONSERVATION/ACTIVITY DEMAND (OT/DANCE HALL HOSTESS) OT/DANCE HALL HOSTESS TO MONITOR AND EDUCATE ON OXYGEN SATURATION DURING ADLS/IADLS, NOTIFY PHYSICIAN AND/OR THE RN CLINICAL ENGINEERING CLERK FOR PHYSICIAN NOTIFICATION AND IF O2 SATS BELOW 90% AFTER 10 MIN OF REST. OT / DANCE HALL HOSTESS TO IDENTIFY FALL RISK FACTORS; EDUCATE THE PATIENT/CAREGIVER ON WAYS TO REDUCE FALL RISK FACTORS AND ESTABLISH HOME EXERCISE PROGRAM TO MINIMIZE FALL RISK. MAY TEACH THE PATIENT FLOOR RECOVERY WHEN CLINICALLY APPROPRIATE. OT/DANCE HALL HOSTESS TO EDUCATE ON HYPERTENSION SELF-MANAGEMENT OT/MARIANNE TO EDUCATE ON ATRIAL FIBRILLATION SELF-MANAGEMENT. [code = AGENCY MAY PERFORM A RESUMPTION OF CARE VISIT FOLLOWING ANY HOSPITAL ADMISSION. OT TO EVALUATE, OBSERVE / ASSESS, AND MONITOR, DANCE HALL HOSTESS TO OBSERVE AND MONITOR, PROVIDE SKILLED THERAPEUTIC INTERVENTION, ACTIVITY, EDUCATION, AND TRAINING TO ADDRESS SAFETY AND INDEPENDENCE OF ADLS AND FUNCTIONAL TRANSFERS IN HOME ENVIRONMENT. ACTIVITIES OF DAILY LIVING (OT/MARIANNE) THERAPEUTIC EXERCISE (OT/DANCE HALL HOSTESS) ENERGY CONSERVATION/ACTIVITY DEMAND (OT/MARIANNE) OT/DANCE HALL HOSTESS TO MONITOR AND EDUCATE ON OXYGEN SATURATION DURING ADLS/IADLS, NOTIFY PHYSICIAN AND/OR THE RN CLINICAL ENGINEERING CLERK FOR PHYSICIAN NOTIFICATION AND IF O2 SATS BELOW 90% AFTER 10 MIN OF REST. OT / MARIANNE TO IDENTIFY FALL RISK FACTORS; EDUCATE THE PATIENT/CAREGIVER ON WAYS TO REDUCE FALL RISK FACTORS AND ESTABLISH HOME EXERCISE PROGRAM TO MINIMIZE FALL RISK. MAY TEACH THE PATIENT FLOOR RECOVERY WHEN CLINICALLY APPROPRIATE. OT/DANCE HALL HOSTESS TO EDUCATE ON HYPERTENSION SELF-MANAGEMENT OT/MARIANNE TO [...] End Date/Time Encounter Type Admission Type Attending [facility] Care Department Encounter ID Discharge Date Discharge Status Discharge Condition Discharge Reason Percent Goals Met 2025-02-07 00:00:00 2025-04-07 00:00:00 Outpatient NEW ADMISSION [facility]ANK[facility] [id number] 26.42
--- OUTSIDE RECORDS SUMMARY | 2025-04-06 18:00 | XMS_ITS | Clinical Summary ---
Author Organization Unknown Care Team Providers Care Housekeeping Room Attendant Name Role Phone DIGNA ARIEL, ESTRELLA Unavailable Unava dinora STOKES RN, FRANKIE Unavailable Unavailabl e KARI PT, DIDI Unavailable Unavailable NTA MEDIA TECHNICIAN, GAUDENCIO Unavailable Unavailabl e RADHA OT, ROLANDO Unavailable Unavailable JOANNE STEVEN, HATTIE Unavailable Unavailable Payers Payer Name Policy Type Policy Number Effective Date Expira tion Date MEDICARE[facility] [id number] Problems Condition Name Condition Details Condition Category Status Onset Date Resolution Date Last Treatment Date Treating Clinician Comments 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 02-07 [...] OF PNEUMONIA (RECURRENT) Active 02-07 00:00: 00 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 Active 02-07 [...] 80 mg tablet 02-07 00:00: 00 Yes [id number] CHOLESTEROL 1 tablet DAILY 1 tablet DAILY (route: oral) Med Classific ation: Cardiovas cular Therapy Agents digoxin 125 mcg (0.125 mg) tablet 02-07 00:00: 00 02-21 23:59 :00 No [id number] HEART RHYTHM 1 tablet DAILY 1 tablet DAILY (route: oral) Med Classific ation: Cardiovas cular Therapy Agents escitalopra m 10 mg tablet 02-07 00:00: 00 Yes [id number] MOOD 1 tablet DAILY 1 tablet DAILY (route: oral) Med Classific ation: Central Nervous System Agents ezetimibe 10 mg tablet 02-07 00:00: 00 Yes [id number] CHOLESTEROL 1 tablet DAILY 1 tablet DAILY (route: oral) Med Classific ation: Cardiovas cular Therapy Agents metoprolol succinate ER 25 mg tablet,exte nded release 24 hr 02-07 00:00: 00 02-21 23:59 :00 No [id number] BLOOD PRESSURE 0.5 tablet DAILY 0.5 tablet DAILY (route: oral) Med Classific ation: Cardiovas cular Therapy Agents pantoprazol e 40 mg tablet,joão yed release 02-07 00:00: 00 02-21 23:59 :00 No [id number] STOMACH ACID 1 tablet DAILY 1 tablet DAILY (route: oral) Med Classific ation: Gastroint estinal Therapy Agents prednisone 5 mg tablet 02-07 00:00: 00 Yes [id number] ADRENAL INSUFFICIEN CY 1 tablet DAILY 1 tablet DAILY (route: oral) Med Classific ation: Endocrine spironolact one 25 mg tablet 02-07 00:00: 00 Yes [id number] FLUID RETENTION 0.5 tablet DAILY 0.5 tablet DAILY (route: oral) Med Classific ation: Cardiovas cular Therapy Agents tamsulosin 0.4 mg capsule 02-07 00:00: 00 02-21 23:59 :00 No [id number] URINARY HEALTH 1 capsule DAILY 1 capsule DAILY (route: oral) Med Classific ation: Genitouri nary Therapy acetaminoph en 325 mg tablet 2024-05 00:00: 00 Yes [id number] PAIN 2 tablet 2 TIMES DAILY 2 tablet 2 TIMES DAILY (route: oral) Med Classific ation: Analgesic , Anti-infl ammatory or Antipyret ic aspirin 81 mg tablet 2024-05 00:00: 00 Yes [id number] ANTICOAGULA NT 1 tablet DAILY 1 tablet DAILY (route: oral) Med Classific ation: Hematolog ical Agents ipratropium 0.5 mg-albutero l 3 mg (2.5 mg base)/3 mL nebulizatio n soln 2024-05 00:00: 00 Yes [id number] COPD 3 mL EVERY 6 HOURS 3 mL EVERY 6 HOURS (route: inhalation ) Med Classific ation: Respirato ry Therapy Agents Lanoxin 62.5 mcg (0.0625 mg) tablet 2024-05 00:00: 00 Yes [id number] CHF 1 tablet DAILY 1 tablet DAILY (route: oral) Med Classific ation: Cardiovas cular Therapy Agents Lasix 20 mg tablet 2024-05 00:00: 00 Yes [id number] CHF 1 tablet DAILY 1 tablet DAILY (route: oral) Med Classific ation: Cardiovas cular Therapy Agents Toprol XL 25 mg tablet,exte nded release 2024-05 00:00: 00 Yes [id number] BP 25 mg DAILY 25 mg DAILY [...] SYSTEM MANAGEMENT; RN TO ASSESS AND TEACH, THREADER/MIDDLE CARD TENDER TO OBSERVE AND TEACH RELATED TO ALTERED RESPIRATORY STATUS TO MINIMIZE COMPLICATIONS AND REDUCE HOSPITALIZATION. [code = SN 1WK9 PT 1WK1 OT EFFECTIVE 02/10/2025K1 RESPIRATORY SYSTEM MANAGEMENT; RN TO ASSESS AND TEACH, THREADER/MIDDLE CARD TENDER TO OBSERVE AND TEACH RELATED TO ALTERED RESPIRATORY STATUS TO MINIMIZE COMPLICATIONS AND REDUCE HOSPITALIZATION.] Future Scheduled Test TRACHEOSTO MY CARE MANAGEMENT; RN/THREADER/MIDDLE CARD TENDER TO INSTRUCT PATIENT/CAREGIVER ON CARE AND MANAGEMENT OF TRACHEOSTOMY. RN/ THREADER/MIDDLE CARD TENDER TO PROVIDE SKILLED TEACHING ON TRACH COLLAR SUCTIONING PRN WITH 14 FR SUCTION CATHETER PER PATIENT TRACH CARE WITH INNER CANNULA: REMOVE INNER CANNULA, CLEANSE WITH NORMAL SALINE AND OR STERILE WATER AND REINSERT NON-DISPOSABLE CANNULA SIZE OF INNER CANNULA 5 BROOKS [code = TRACHEOSTOMY CARE MANAGEMENT; RN/THREADER/MIDDLE CARD TENDER TO INSTRUCT PATIENT/CAREGIVER ON CARE AND MANAGEMENT OF TRACHEOSTOMY. RN/ THREADER/MIDDLE CARD TENDER TO PROVIDE SKILLED TEACHING ON TRACH COLLAR SUCTIONING PRN WITH 14 FR SUCTION CATHETER PER PATIENT TRACH CARE WITH INNER CANNULA: REMOVE INNER CANNULA, CLEANSE WITH NORMAL SALINE AND OR STERILE WATER AND REINSERT NON-DISPOSABLE CANNULA SIZE OF INNER CANNULA 5 BROOKS] Future Scheduled Test FALL REDUC TION MANAGEMENT; RN TO ASSESS AND OBSERVE, THREADER/MIDDLE CARD TENDER TO OBSERVE FALL RISK FACTORS AND EDUCATE PATIENT/CAREGIVER ON STRATEGIES TO MINIMIZE THE RISK OF FALLING. [code = FALL REDUCTION MANAGEMENT; RN TO ASSESS AND OBSERVE, THREADER/MIDDLE CARD TENDER TO OBSERVE FALL RISK FACTORS AND EDUCATE PATIENT/CAREGIVER ON STRATEGIES TO MINIMIZE THE RISK OF FALLING.] Future Scheduled Test ANEMIA MAN AGEMENT; RN TO ASSESS AND TEACH, MIDDLE CARD TENDER/THREADER TO OBSERVE AND TEACH AND PROVIDE EDUCATION ON ANEMIA. [code = ANEMIA MANAGEMENT; RN TO ASSESS AND TEACH, MIDDLE CARD TENDER/THREADER TO OBSERVE AND TEACH AND PROVIDE EDUCATION ON ANEMIA.] Future Scheduled Test RN TO OBSE RVE, ASSESS, EVALUATE, AND DEVELOP AN INDIVIDUALIZED PLAN OF CARE. AGENCY MAY ACCEPT ORDERS FROM CONSULTING PHYSICIANS RN TO OBSERVE AND ASSESS, THREADER/MIDDLE CARD TENDER TO OBSERVE FOR RISK FOR FALLS AND INSTRUCT IN FALL PREVENTION, HOME SAFETY, MEDICATION MANAGEMENT, INFECTION PREVENTION, AND NUTRITION MANAGEMENT. RN/THREADER/MIDDLE CARD TENDER NURSE MAY PERFORM O2 SATURATION LEVEL ON ADMISSION AND PRN FOR RN TO ASSESS/THREADER TO OBSERVE PATIENT, WITH NOTIFICATION TO THE PHYSICIAN IF SATURATION IS 90% IN THE ABSENCE OF MORE SPECIFIC PARAMETERS FROM THE PHYSICIAN. AGENCY MAY PERFORM A RESUMPTION OF CARE VISIT FOLLOWING ANY HOSPITAL ADMISSION. RN/THREADER/MIDDLE CARD TENDER TO MONITOR CO-MORBID CONDITIONS LISTED ON THE PLAN OF CARE AND ANY NEW CONDITIONS THAT PRESENT THEMSELVES DURING THIS EPISODE TO IDENTIFY CHANGES AND INTERVENE TO MINIMIZE COMPLICATIONS. [code = RN TO OBSERVE, ASSESS, EVALUATE, AND DEVELOP AN INDIVIDUALIZED PLAN OF CARE. AGENCY MAY ACCEPT ORDERS FROM CONSULTING PHYSICIANS RN TO OBSERVE AND ASSESS, THREADER/MIDDLE CARD TENDER TO OBSERVE FOR RISK FOR FALLS AND INSTRUCT IN FALL PREVENTION, HOME SAFETY, MEDICATION MANAGEMENT, INFECTION PREVENTION, AND NUTRITION MANAGEMENT. RN/THREADER/MIDDLE CARD TENDER NURSE MAY PERFORM O2 SATURATION LEVEL ON ADMISSION AND PRN FOR RN TO ASSESS/THREADER TO OBSERVE PATIENT, WITH NOTIFICATION TO THE PHYSICIAN IF SATURATION IS 90% IN THE ABSENCE OF MORE SPECIFIC PARAMETERS FROM THE PHYSICIAN. AGENCY MAY PERFORM A RESUMPTION OF CARE VISIT FOLLOWING ANY HOSPITAL ADMISSION. RN/THREADER/MIDDLE CARD TENDER TO MONITOR CO-MORBID CONDITIONS LISTED ON THE PLAN OF CARE AND ANY NEW CONDITIONS THAT PRESENT THEMSELVES DURING THIS EPISODE TO IDENTIFY CHANGES AND INTERVENE TO MINIMIZE COMPLICATIONS.] Future Scheduled Test PAIN MANAG EMENT; RN TO ASSESS AND TEACH, MIDDLE CARD TENDER/THREADER TO OBSERVE AND TEACH AND PROVIDE EDUCATION ON PAIN MANAGEMENT TECHNIQUES. [code = PAIN MANAGEMENT; RN TO ASSESS AND TEACH, MIDDLE CARD TENDER/THREADER TO OBSERVE AND TEACH AND PROVIDE EDUCATION ON PAIN MANAGEMENT TECHNIQUES.] Future Scheduled Test RISK FOR H OSPITALIZATION; RN TO ASSESS/TEACH, MIDDLE CARD TENDER/THREADER TO OBSERVE/TEACH PATIENT/CAREGIVER ON RISK FOR HOSPITALIZATION/EMERGENCY ROOM VISITS, TEACH SIGNS AND SYMPTOMS THAT PUT PATIENT AT RISK, WHEN TO NOTIFY NURSE/PHYSICIAN OF COMPLICATIONS/DECLINE, AND WHEN TO CALL 911. [code = RISK FOR HOSPITALIZATION; RN TO ASSESS/TEACH, MIDDLE CARD TENDER/THREADER TO OBSERVE/TEACH PATIENT/CAREGIVER ON RISK FOR HOSPITALIZATION/EMERGENCY ROOM VISITS, TEACH SIGNS AND SYMPTOMS THAT PUT PATIENT AT RISK, WHEN TO NOTIFY NURSE/PHYSICIAN OF COMPLICATIONS/DECLINE, AND WHEN TO CALL 911.] Future Scheduled Test CARDIOVASC ULAR SYSTEM; RN TO ASSESS/TEACH, THREADER/MIDDLE CARD TENDER TO OBSERVE/TEACH RELATED TO ALTERED CARDIOVASCULAR STATUS TO MINIMIZE COMPLICATIONS AND REDUCE HOSPITALIZATION. [code = CARDIOVASCULAR SYSTEM; RN TO ASSESS/TEACH, THREADER/MIDDLE CARD TENDER TO OBSERVE/TEACH RELATED TO ALTERED CARDIOVASCULAR STATUS TO MINIMIZE COMPLICATIONS AND REDUCE HOSPITALIZATION.] Future Scheduled Test HYPERTENSI ON MANAGEMENT; RN TO ASSESS AND TEACH, THREADER/MIDDLE CARD TENDER TO OBSERVE AND TEACH WARNING SIGNS AND SYMPTOMS TO AVOID HOSPITALIZATION. [code = HYPERTENSION MANAGEMENT; RN TO ASSESS AND TEACH, THREADER/MIDDLE CARD TENDER TO OBSERVE AND TEACH WARNING SIGNS AND SYMPTOMS TO AVOID HOSPITALIZATION.] Future Scheduled Test HEART FAIL URE MONITORING RN/MIDDLE CARD TENDER/THREADER TO MONITOR PATIENT FOR SIGNS AND SYMPTOMS OF HEART FAILURE EXACERBATION, MONITOR FOR ADHERENCE WITH MEDICATION AND HEART FAILURE MANAGEMENT REGIMEN. [code = HEART FAILURE MONITORING RN/MIDDLE CARD TENDER/THREADER TO MONITOR PATIENT FOR SIGNS AND SYMPTOMS OF HEART FAILURE EXACERBATION, MONITOR FOR ADHERENCE WITH MEDICATION AND HEART FAILURE MANAGEMENT REGIMEN.] Future Scheduled Test DIABETES M ONITORING RN/MIDDLE CARD TENDER/THREADER TO MONITOR BLOOD SUGAR LOG FOR BLOOD SUGAR READINGS THAT ARE BEING CHECKED BY PATIENT, CAREGIVER NEEDED FOR SIGNS AND SYMPTOMS OF HYPER/HYPOGLYCEMIA. PATIENT THERAPEUTIC BLOOD SUGAR PARAMETERS ARE 70 - 300. REPORT BLOOD SUGARS OUT OF RANGE TO PHYSICIAN. NURSE MAY PERFORM FINGER STICK BLOOD GLUCOSE NEEDED FOR SIGNS AND SYMPTOMS OF HYPO AND HYPERGLYCEMIA. RN/MIDDLE CARD TENDER/THREADER TO MONITOR ADHERENCE OF PATIENT/CAREGIVER PERFORMING DIABETIC FOOT CARE AND MAY PERFORM DIABETIC FOOT CARE PRN. RN/MIDDLE CARD TENDER/THREADER TO MONITOR FOR ADHERENCE TO DIABETIC SELF-CARE AND MANAGEMENT INCLUDING MEDICATIONS. [code = DIABETES MONITORING RN/MIDDLE CARD TENDER/THREADER TO MONITOR BLOOD SUGAR LOG FOR BLOOD SUGAR READINGS THAT ARE BEING CHECKED BY PATIENT, CAREGIVER NEEDED FOR SIGNS AND SYMPTOMS OF HYPER/HYPOGLYCEMIA. PATIENT THERAPEUTIC BLOOD SUGAR PARAMETERS ARE 70 - 300. REPORT BLOOD SUGARS OUT OF RANGE TO PHYSICIAN. NURSE MAY PERFORM FINGER STICK BLOOD GLUCOSE NEEDED FOR SIGNS AND SYMPTOMS OF HYPO AND HYPERGLYCEMIA. RN/MIDDLE CARD TENDER/THREADER TO MONITOR ADHERENCE OF PATIENT/CAREGIVER PERFORMING DIABETIC FOOT CARE AND MAY PERFORM DIABETIC FOOT CARE PRN. RN/MIDDLE CARD TENDER/THREADER TO MONITOR FOR ADHERENCE TO DIABETIC SELF-CARE AND MANAGEMENT INCLUDING MEDICATIONS.] Future Scheduled Test HYPOTENSIO N MANAGEMENT; RN TO ASSESS AND TEACH/ THREADER /MIDDLE CARD TENDER TO OBSERVE AND TEACH WARNING SIGNS AND SYMPTOMS TO AVOID HOSPITALIZATION. [code = HYPOTENSION MANAGEMENT; RN TO ASSESS AND TEACH/ THREADER /MIDDLE CARD TENDER TO OBSERVE AND TEACH WARNING SIGNS AND SYMPTOMS TO AVOID HOSPITALIZATION.] Future Scheduled Test ARRHYTHMIA MANAGEMENT; RN TO ASSESS AND TEACH, THREADER/MIDDLE CARD TENDER TO OBSERVE AND TEACH WARNING SIGNS AND SYMPTOMS TO AVOID HOSPITALIZATION. [code = ARRHYTHMIA MANAGEMENT; RN TO ASSESS AND TEACH, THREADER/MIDDLE CARD TENDER TO OBSERVE AND TEACH WARNING SIGNS AND SYMPTOMS TO AVOID HOSPITALIZATION.] Future Scheduled Test MEDICATION MANAGEMENT; RN/THREADER/MIDDLE CARD TENDER TO REVIEW MEDICATIONS FOR INTERACTIONS, EFFECTIVENESS OF DRUG THERAPY, AND SIGNS/SYMPTOMS OF ADVERSE REACTIONS. MAY INSTRUCT AND REINFORCE MEDICATION TEACHING RELATED TO THE USE OF MEDICATIONS, DOSAGE, FREQUENCY, PURPOSE, SIDE EFFECTS, AND TO REPORT COMPLICATIONS. [code = MEDICATION MANAGEMENT; RN/THREADER/MIDDLE CARD TENDER TO REVIEW MEDICATIONS FOR INTERACTIONS, EFFECTIVENESS OF [...] EVAL UATE, OBSERVE / ASSESS, AND MONITOR, MEDIA TECHNICIAN TO OBSERVE AND MONITOR, PROVIDE SKILLED THERAPEUTIC INTERVENTION, ACTIVITY, EDUCATION, AND TRAINING TO ADDRESS GEN. WEAKNESS, POOR OVERALL ACTIVITY TOLERANCE, AND FUNCTIONAL LIMITATIONS IMPACTING SAFETY AND INDEPENDENCE. BED MOBILITY (PT/MEDIA TECHNICIAN) PT/MEDIA TECHNICIAN TO PROVIDE GAIT TRAINING FOR IMPROVED MOBILITY AND /OR TO NORMALIZE GAIT PATTERN THERAPEUTIC EXERCISES AND ESTABLISHING A HOME EXERCISE PROGRAM (PT/MEDIA TECHNICIAN) PT/MEDIA TECHNICIAN TO PROVIDE STAIR TRAINING PT / MEDIA TECHNICIAN TO MONITOR AND EDUCATE ON OXYGEN SATURATION DURING ADLS/IADLS, NOTIFY PHYSICIAN AND/OR THE RN CLINICAL FREELANCE COURT REPORTER FOR PHYSICIAN NOTIFICATION AND IF O2 SATS BELOW PHYSICIAN ORDERED PARAMETERS AFTER 10 MIN OF REST PT / MEDIA TECHNICIAN TO OBSERVE FOR EARLY SIGNS AND SYMPTOMS OF DEPRESSION OR DEPRESSION GETTING WORSE AND TO EDUCATE ON HOW TO FIND HELP. PT / MEDIA TECHNICIAN MAY EDUCATE ON PAIN MANAGEMENT CLINICALLY INDICATED, INCLUDING NON-PHARMACOLOGICAL PAIN REDUCTION TECHNIQUES PT / MEDIA TECHNICIAN TO MONITOR FOR HYPO/HYPERGLYCEMIA AND CONDUCT ROUTINE FOOT INSPECTIONS. RECORD PATIENT REPORTED BLOOD SUGAR LEVELS AND NOTIFY PHYSICIAN AND/OR THE RN CLINICAL FREELANCE COURT REPORTER FOR PHYSICIAN NOTIFICATION IF BLOOD SUGAR LEVELS ARE OUTSIDE ORDERED PARAMETERS. TEACH PATIENT/CAREGIVER ON DAILY FOOT INSPECTIONS PT / MEDIA TECHNICIAN TO INSTRUCT PATIENT/CAREGIVER ON RISK FOR HOSPITALIZATION/EMERGENCY ROOM VISITS, TEACH SIGNS AND SYMPTOMS THAT PUT PATIENT AT RISK, WHEN TO NOTIFY NURSE/PHYSICIAN OF COMPLICATIONS/DECLINE, AND WHEN TO CALL 911. PT/MEDIA TECHNICIAN TO EDUCATE ON ARTHRITIS SELF-MANAGEMENT PT / MEDIA TECHNICIAN TO EDUCATE ON HEART FAILURE SELF-MANAGEMENT PT / MEDIA TECHNICIAN TO EDUCATE ON HYPERTENSION SELF-MANAGEMENT PT TO ASSESS / MEDIA TECHNICIAN TO MONITOR CARDIO/RESPIRATORY SYSTEM; AND NOTIFY THE PHYSICIAN AND/OR THE RN CLINICAL FREELANCE COURT REPORTER FOR PHYSICIAN NOTIFICATION FOR EARLY SIGNS AND SYMPTOMS OF EXACERBATION OR DETERIORATION. PT / MEDIA TECHNICIAN TO EDUCATE ON ATRIAL FIBRILLATION SELF-MANAGEMENT. PT / MEDIA TECHNICIAN TO EDUCATE ON PNEUMONIA / ASPIRATION PNEUMONIA SELF-MANAGEMENT. PT/MEDIA TECHNICIAN TO IDENTIFY FALL RISK FACTORS; EDUCATE THE PATIENT/CAREGIVER ON WAYS TO REDUCE FALL RISK FACTORS AND ESTABLISH HOME EXERCISE PROGRAM TO MINIMIZE FALL RISK. MAY TEACH THE PATIENT FLOOR RECOVERY WHEN CLINICALLY APPROPRIATE [code = PT TO EVALUATE, OBSERVE / ASSESS, AND MONITOR, MEDIA TECHNICIAN TO OBSERVE AND MONITOR, PROVIDE SKILLED THERAPEUTIC INTERVENTION, ACTIVITY, EDUCATION, AND TRAINING TO ADDRESS GEN. WEAKNESS, POOR OVERALL ACTIVITY TOLERANCE, AND FUNCTIONAL LIMITATIONS IMPACTING SAFETY AND INDEPENDENCE. BED MOBILITY (PT/MEDIA TECHNICIAN) PT/MEDIA TECHNICIAN TO PROVIDE GAIT TRAINING FOR IMPROVED MOBILITY AND /OR TO NORMALIZE GAIT PATTERN THERAPEUTIC EXERCISES AND ESTABLISHING A HOME EXERCISE PROGRAM (PT/MEDIA TECHNICIAN) PT/MEDIA TECHNICIAN TO PROVIDE STAIR TRAINING PT / MEDIA TECHNICIAN TO MONITOR AND EDUCATE ON OXYGEN SATURATION DURING ADLS/IADLS, NOTIFY PHYSICIAN AND/OR THE RN CLINICAL FREELANCE COURT REPORTER FOR PHYSICIAN NOTIFICATION AND IF O2 SATS BELOW PHYSICIAN ORDERED PARAMETERS AFTER 10 MIN OF REST PT / MEDIA TECHNICIAN TO OBSERVE FOR EARLY SIGNS AND SYMPTOMS OF DEPRESSION OR DEPRESSION GETTING WORSE AND TO EDUCATE ON HOW TO FIND HELP. PT / MEDIA TECHNICIAN MAY EDUCATE ON PAIN MANAGEMENT CLINICALLY INDICATED, INCLUDING NON-PHARMACOLOGICAL PAIN REDUCTION TECHNIQUES PT / MEDIA TECHNICIAN TO MONITOR FOR HYPO/HYPERGLYCEMIA AND CONDUCT ROUTINE FOOT INSPECTIONS. RECORD PATIENT REPORTED BLOOD SUGAR LEVELS AND NOTIFY PHYSICIAN AND/OR THE RN CLINICAL FREELANCE COURT REPORTER FOR PHYSICIAN NOTIFICATION IF BLOOD SUGAR LEVELS ARE OUTSIDE ORDERED PARAMETERS. TEACH PATIENT/CAREGIVER ON DAILY FOOT INSPECTIONS PT / MEDIA TECHNICIAN TO INSTRUCT PATIENT/CAREGIVER ON RISK FOR HOSPITALIZATION/EMERGENCY ROOM VISITS, TEACH SIGNS AND SYMPTOMS THAT PUT PATIENT AT RISK, WHEN TO NOTIFY NURSE/PHYSICIAN OF COMPLICATIONS/DECLINE, AND WHEN TO CALL 911. PT/MEDIA TECHNICIAN TO EDUCATE ON ARTHRITIS SELF-MANAGEMENT PT / MEDIA TECHNICIAN TO EDUCATE ON HEART FAILURE SELF-MANAGEMENT PT / MEDIA TECHNICIAN TO EDUCATE ON HYPERTENSION SELF-MANAGEMENT PT TO ASSESS / MEDIA TECHNICIAN TO MONITOR CARDIO/RESPIRATORY SYSTEM; AND NOTIFY THE PHYSICIAN AND/OR THE RN CLINICAL FREELANCE COURT REPORTER FOR PHYSICIAN NOTIFICATION FOR EARLY SIGNS AND SYMPTOMS OF EXACERBATION OR DETERIORATION. PT / MEDIA TECHNICIAN TO EDUCATE ON ATRIAL FIBRILLATION SELF-MANAGEMENT. PT / MEDIA TECHNICIAN TO EDUCATE ON PNEUMONIA / ASPIRATION PNEUMONIA SELF-MANAGEMENT. PT/MEDIA TECHNICIAN TO IDENTIFY FALL RISK FACTORS; EDUCATE THE PATIENT/CAREGIVER ON WAYS TO REDUCE FALL RISK FACTORS AND ESTABLISH HOME EXERCISE PROGRAM TO MINIMIZE FALL RISK. MAY TEACH THE PATIENT FLOOR RECOVERY WHEN CLINICALLY APPROPRIATE] Future Scheduled Test AGENCY MAY PERFORM A RESUMPTION OF CARE VISIT FOLLOWING ANY HOSPITAL ADMISSION. OT TO EVALUATE, OBSERVE / ASSESS, AND MONITOR, POULTRY EVISCERATOR TO OBSERVE AND MONITOR, PROVIDE SKILLED THERAPEUTIC INTERVENTION, ACTIVITY, EDUCATION, AND TRAINING TO ADDRESS SAFETY AND INDEPENDENCE OF ADLS AND FUNCTIONAL TRANSFERS IN HOME ENVIRONMENT. ACTIVITIES OF DAILY LIVING (OT/MARIANNE) THERAPEUTIC EXERCISE (OT/POULTRY EVISCERATOR) ENERGY CONSERVATION/ACTIVITY DEMAND (OT/POULTRY EVISCERATOR) OT/POULTRY EVISCERATOR TO MONITOR AND EDUCATE ON OXYGEN SATURATION DURING ADLS/IADLS, NOTIFY PHYSICIAN AND/OR THE RN CLINICAL FREELANCE COURT REPORTER FOR PHYSICIAN NOTIFICATION AND IF O2 SATS BELOW 90% AFTER 10 MIN OF REST. OT / POULTRY EVISCERATOR TO IDENTIFY FALL RISK FACTORS; EDUCATE THE PATIENT/CAREGIVER ON WAYS TO REDUCE FALL RISK FACTORS AND ESTABLISH HOME EXERCISE PROGRAM TO MINIMIZE FALL RISK. MAY TEACH THE PATIENT FLOOR RECOVERY WHEN CLINICALLY APPROPRIATE. OT/POULTRY EVISCERATOR TO EDUCATE ON HYPERTENSION SELF-MANAGEMENT OT/MARIANNE TO EDUCATE ON ATRIAL FIBRILLATION SELF-MANAGEMENT. [code = AGENCY MAY PERFORM A RESUMPTION OF CARE VISIT FOLLOWING ANY HOSPITAL ADMISSION. OT TO EVALUATE, OBSERVE / ASSESS, AND MONITOR, POULTRY EVISCERATOR TO OBSERVE AND MONITOR, PROVIDE SKILLED THERAPEUTIC INTERVENTION, ACTIVITY, EDUCATION, AND TRAINING TO ADDRESS SAFETY AND INDEPENDENCE OF ADLS AND FUNCTIONAL TRANSFERS IN HOME ENVIRONMENT. ACTIVITIES OF DAILY LIVING (OT/MARIANNE) THERAPEUTIC EXERCISE (OT/POULTRY EVISCERATOR) ENERGY CONSERVATION/ACTIVITY DEMAND (OT/MARIANNE) OT/POULTRY EVISCERATOR TO MONITOR AND EDUCATE ON OXYGEN SATURATION DURING ADLS/IADLS, NOTIFY PHYSICIAN AND/OR THE RN CLINICAL FREELANCE COURT REPORTER FOR PHYSICIAN NOTIFICATION AND IF O2 SATS BELOW 90% AFTER 10 MIN OF REST. OT / MARIANNE TO IDENTIFY FALL RISK FACTORS; EDUCATE THE PATIENT/CAREGIVER ON WAYS TO REDUCE FALL RISK FACTORS AND ESTABLISH HOME EXERCISE PROGRAM TO MINIMIZE FALL RISK. MAY TEACH THE PATIENT FLOOR RECOVERY WHEN CLINICALLY APPROPRIATE. OT/POULTRY EVISCERATOR TO EDUCATE ON HYPERTENSION SELF-MANAGEMENT OT/MARIANNE TO [...] End Date/Time Encounter Type Admission Type Attending [facility] Care Department Encounter ID Discharge Date Discharge Status Discharge Condition Discharge Reason Percent Goals Met 2025-02-07 00:00:00 2025-04-07 00:00:00 Outpatient NEW ADMISSION [facility] [id number]
--- OUTSIDE RECORDS SUMMARY | 2025-04-06 18:00 | XMS_ITS | Clinical Summary ---
Author Organization Unknown Care Team Providers Care Transmission Design Engineer Name Role Phone DIGNA ARIEL, ESTRELLA Unavailable Unava dinora STOKES RN, FRANKIE Unavailable Unavailabl e KARI PT, DIDI Unavailable Unavailable NAT ACTUARIAL CONSULTANT, GAUDENCIO Unavailable Unavailabl e RADHA OT, ROLANDO Unavailable Unavailable JOANNE STEVEN, HATTIE Unavailable Unavailable Payers Payer Name Policy Type Policy Number Effective Date Expira tion Date MEDICARE.[facility] [id number] Problems Condition Name Condition Details Condition Category Status Onset Date Resolution Date Last Treatment Date Treating Clinician Comments 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 02-07 [...] OF PNEUMONIA (RECURRENT) Active 02-07 00:00: 00 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 Active 02-07 [...] 80 mg tablet 02-07 00:00: 00 Yes [id number] CHOLESTEROL 1 tablet DAILY 1 tablet DAILY (route: oral) Med Classific ation: Cardiovas cular Therapy Agents digoxin 125 mcg (0.125 mg) tablet 02-07 00:00: 00 02-21 23:59 :00 No [id number] HEART RHYTHM 1 tablet DAILY 1 tablet DAILY (route: oral) Med Classific ation: Cardiovas cular Therapy Agents escitalopra m 10 mg tablet 02-07 00:00: 00 Yes [id number] MOOD 1 tablet DAILY 1 tablet DAILY (route: oral) Med Classific ation: Central Nervous System Agents ezetimibe 10 mg tablet 02-07 00:00: 00 Yes [id number] CHOLESTEROL 1 tablet DAILY 1 tablet DAILY (route: oral) Med Classific ation: Cardiovas cular Therapy Agents metoprolol succinate ER 25 mg tablet,exte nded release 24 hr 02-07 00:00: 00 02-21 23:59 :00 No [id number] BLOOD PRESSURE 0.5 tablet DAILY 0.5 tablet DAILY (route: oral) Med Classific ation: Cardiovas cular Therapy Agents pantoprazol e 40 mg tablet,joão yed release 02-07 00:00: 00 02-21 23:59 :00 No [id number] STOMACH ACID 1 tablet DAILY 1 tablet DAILY (route: oral) Med Classific ation: Gastroint estinal Therapy Agents prednisone 5 mg tablet 02-07 00:00: 00 Yes [id number] ADRENAL INSUFFICIEN CY 1 tablet DAILY 1 tablet DAILY (route: oral) Med Classific ation: Endocrine spironolact one 25 mg tablet 02-07 00:00: 00 Yes [id number] FLUID RETENTION 0.5 tablet DAILY 0.5 tablet DAILY (route: oral) Med Classific ation: Cardiovas cular Therapy Agents tamsulosin 0.4 mg capsule 02-07 00:00: 00 02-21 23:59 :00 No [id number] URINARY HEALTH 1 capsule DAILY 1 capsule DAILY (route: oral) Med Classific ation: Genitouri nary Therapy acetaminoph en 325 mg tablet 2024-05 00:00: 00 Yes [id number] PAIN 2 tablet 2 TIMES DAILY 2 tablet 2 TIMES DAILY (route: oral) Med Classific ation: Analgesic , Anti-infl ammatory or Antipyret ic aspirin 81 mg tablet 2024-05 00:00: 00 Yes [id number] ANTICOAGULA NT 1 tablet DAILY 1 tablet DAILY (route: oral) Med Classific ation: Hematolog ical Agents ipratropium 0.5 mg-albutero l 3 mg (2.5 mg base)/3 mL nebulizatio n soln 2024-05 00:00: 00 Yes [id number] COPD 3 mL EVERY 6 HOURS 3 mL EVERY 6 HOURS (route: inhalation ) Med Classific ation: Respirato ry Therapy Agents Lanoxin 62.5 mcg (0.0625 mg) tablet 2024-05 00:00: 00 Yes [id number] CHF 1 tablet DAILY 1 tablet DAILY (route: oral) Med Classific ation: Cardiovas cular Therapy Agents Lasix 20 mg tablet 2024-05 00:00: 00 Yes [id number] CHF 1 tablet DAILY 1 tablet DAILY (route: oral) Med Classific ation: Cardiovas cular Therapy Agents Toprol XL 25 mg tablet,exte nded release 2024-05 00:00: 00 Yes [id number] BP 25 mg DAILY 25 mg DAILY [...] SYSTEM MANAGEMENT; RN TO ASSESS AND TEACH, AERIAL ERECTOR/INKER MACHINE TO OBSERVE AND TEACH RELATED TO ALTERED RESPIRATORY STATUS TO MINIMIZE COMPLICATIONS AND REDUCE HOSPITALIZATION. [code = SN 1WK9 PT 1WK1 OT EFFECTIVE 02/10/2025K1 RESPIRATORY SYSTEM MANAGEMENT; RN TO ASSESS AND TEACH, AERIAL ERECTOR/INKER MACHINE TO OBSERVE AND TEACH RELATED TO ALTERED RESPIRATORY STATUS TO MINIMIZE COMPLICATIONS AND REDUCE HOSPITALIZATION.] Future Scheduled Test TRACHEOSTO MY CARE MANAGEMENT; RN/AERIAL ERECTOR/INKER MACHINE TO INSTRUCT PATIENT/CAREGIVER ON CARE AND MANAGEMENT OF TRACHEOSTOMY. RN/ AERIAL ERECTOR/INKER MACHINE TO PROVIDE SKILLED TEACHING ON TRACH COLLAR SUCTIONING PRN WITH 14 FR SUCTION CATHETER PER PATIENT TRACH CARE WITH INNER CANNULA: REMOVE INNER CANNULA, CLEANSE WITH NORMAL SALINE AND OR STERILE WATER AND REINSERT NON-DISPOSABLE CANNULA SIZE OF INNER CANNULA 5 BROOKS [code = TRACHEOSTOMY CARE MANAGEMENT; RN/AERIAL ERECTOR/INKER MACHINE TO INSTRUCT PATIENT/CAREGIVER ON CARE AND MANAGEMENT OF TRACHEOSTOMY. RN/ AERIAL ERECTOR/INKER MACHINE TO PROVIDE SKILLED TEACHING ON TRACH COLLAR SUCTIONING PRN WITH 14 FR SUCTION CATHETER PER PATIENT TRACH CARE WITH INNER CANNULA: REMOVE INNER CANNULA, CLEANSE WITH NORMAL SALINE AND OR STERILE WATER AND REINSERT NON-DISPOSABLE CANNULA SIZE OF INNER CANNULA 5 BROOKS] Future Scheduled Test FALL REDUC TION MANAGEMENT; RN TO ASSESS AND OBSERVE, AERIAL ERECTOR/INKER MACHINE TO OBSERVE FALL RISK FACTORS AND EDUCATE PATIENT/CAREGIVER ON STRATEGIES TO MINIMIZE THE RISK OF FALLING. [code = FALL REDUCTION MANAGEMENT; RN TO ASSESS AND OBSERVE, AERIAL ERECTOR/INKER MACHINE TO OBSERVE FALL RISK FACTORS AND EDUCATE PATIENT/CAREGIVER ON STRATEGIES TO MINIMIZE THE RISK OF FALLING.] Future Scheduled Test ANEMIA MAN AGEMENT; RN TO ASSESS AND TEACH, INKER MACHINE/AERIAL ERECTOR TO OBSERVE AND TEACH AND PROVIDE EDUCATION ON ANEMIA. [code = ANEMIA MANAGEMENT; RN TO ASSESS AND TEACH, INKER MACHINE/AERIAL ERECTOR TO OBSERVE AND TEACH AND PROVIDE EDUCATION ON ANEMIA.] Future Scheduled Test RN TO OBSE RVE, ASSESS, EVALUATE, AND DEVELOP AN INDIVIDUALIZED PLAN OF CARE. AGENCY MAY ACCEPT ORDERS FROM CONSULTING PHYSICIANS RN TO OBSERVE AND ASSESS, AERIAL ERECTOR/INKER MACHINE TO OBSERVE FOR RISK FOR FALLS AND INSTRUCT IN FALL PREVENTION, HOME SAFETY, MEDICATION MANAGEMENT, INFECTION PREVENTION, AND NUTRITION MANAGEMENT. RN/AERIAL ERECTOR/INKER MACHINE NURSE MAY PERFORM O2 SATURATION LEVEL ON ADMISSION AND PRN FOR RN TO ASSESS/AERIAL ERECTOR TO OBSERVE PATIENT, WITH NOTIFICATION TO THE PHYSICIAN IF SATURATION IS 90% IN THE ABSENCE OF MORE SPECIFIC PARAMETERS FROM THE PHYSICIAN. AGENCY MAY PERFORM A RESUMPTION OF CARE VISIT FOLLOWING ANY HOSPITAL ADMISSION. RN/AERIAL ERECTOR/INKER MACHINE TO MONITOR CO-MORBID CONDITIONS LISTED ON THE PLAN OF CARE AND ANY NEW CONDITIONS THAT PRESENT THEMSELVES DURING THIS EPISODE TO IDENTIFY CHANGES AND INTERVENE TO MINIMIZE COMPLICATIONS. [code = RN TO OBSERVE, ASSESS, EVALUATE, AND DEVELOP AN INDIVIDUALIZED PLAN OF CARE. AGENCY MAY ACCEPT ORDERS FROM CONSULTING PHYSICIANS RN TO OBSERVE AND ASSESS, AERIAL ERECTOR/INKER MACHINE TO OBSERVE FOR RISK FOR FALLS AND INSTRUCT IN FALL PREVENTION, HOME SAFETY, MEDICATION MANAGEMENT, INFECTION PREVENTION, AND NUTRITION MANAGEMENT. RN/AERIAL ERECTOR/INKER MACHINE NURSE MAY PERFORM O2 SATURATION LEVEL ON ADMISSION AND PRN FOR RN TO ASSESS/AERIAL ERECTOR TO OBSERVE PATIENT, WITH NOTIFICATION TO THE PHYSICIAN IF SATURATION IS 90% IN THE ABSENCE OF MORE SPECIFIC PARAMETERS FROM THE PHYSICIAN. AGENCY MAY PERFORM A RESUMPTION OF CARE VISIT FOLLOWING ANY HOSPITAL ADMISSION. RN/AERIAL ERECTOR/INKER MACHINE TO MONITOR CO-MORBID CONDITIONS LISTED ON THE PLAN OF CARE AND ANY NEW CONDITIONS THAT PRESENT THEMSELVES DURING THIS EPISODE TO IDENTIFY CHANGES AND INTERVENE TO MINIMIZE COMPLICATIONS.] Future Scheduled Test PAIN MANAG EMENT; RN TO ASSESS AND TEACH, INKER MACHINE/AERIAL ERECTOR TO OBSERVE AND TEACH AND PROVIDE EDUCATION ON PAIN MANAGEMENT TECHNIQUES. [code = PAIN MANAGEMENT; RN TO ASSESS AND TEACH, INKER MACHINE/AERIAL ERECTOR TO OBSERVE AND TEACH AND PROVIDE EDUCATION ON PAIN MANAGEMENT TECHNIQUES.] Future Scheduled Test RISK FOR H OSPITALIZATION; RN TO ASSESS/TEACH, INKER MACHINE/AERIAL ERECTOR TO OBSERVE/TEACH PATIENT/CAREGIVER ON RISK FOR HOSPITALIZATION/EMERGENCY ROOM VISITS, TEACH SIGNS AND SYMPTOMS THAT PUT PATIENT AT RISK, WHEN TO NOTIFY NURSE/PHYSICIAN OF COMPLICATIONS/DECLINE, AND WHEN TO CALL 911. [code = RISK FOR HOSPITALIZATION; RN TO ASSESS/TEACH, INKER MACHINE/AERIAL ERECTOR TO OBSERVE/TEACH PATIENT/CAREGIVER ON RISK FOR HOSPITALIZATION/EMERGENCY ROOM VISITS, TEACH SIGNS AND SYMPTOMS THAT PUT PATIENT AT RISK, WHEN TO NOTIFY NURSE/PHYSICIAN OF COMPLICATIONS/DECLINE, AND WHEN TO CALL 911.] Future Scheduled Test CARDIOVASC ULAR SYSTEM; RN TO ASSESS/TEACH, AERIAL ERECTOR/INKER MACHINE TO OBSERVE/TEACH RELATED TO ALTERED CARDIOVASCULAR STATUS TO MINIMIZE COMPLICATIONS AND REDUCE HOSPITALIZATION. [code = CARDIOVASCULAR SYSTEM; RN TO ASSESS/TEACH, AERIAL ERECTOR/INKER MACHINE TO OBSERVE/TEACH RELATED TO ALTERED CARDIOVASCULAR STATUS TO MINIMIZE COMPLICATIONS AND REDUCE HOSPITALIZATION.] Future Scheduled Test HYPERTENSI ON MANAGEMENT; RN TO ASSESS AND TEACH, AERIAL ERECTOR/INKER MACHINE TO OBSERVE AND TEACH WARNING SIGNS AND SYMPTOMS TO AVOID HOSPITALIZATION. [code = HYPERTENSION MANAGEMENT; RN TO ASSESS AND TEACH, AERIAL ERECTOR/INKER MACHINE TO OBSERVE AND TEACH WARNING SIGNS AND SYMPTOMS TO AVOID HOSPITALIZATION.] Future Scheduled Test HEART FAIL URE MONITORING RN/INKER MACHINE/AERIAL ERECTOR TO MONITOR PATIENT FOR SIGNS AND SYMPTOMS OF HEART FAILURE EXACERBATION, MONITOR FOR ADHERENCE WITH MEDICATION AND HEART FAILURE MANAGEMENT REGIMEN. [code = HEART FAILURE MONITORING RN/INKER MACHINE/AERIAL ERECTOR TO MONITOR PATIENT FOR SIGNS AND SYMPTOMS OF HEART FAILURE EXACERBATION, MONITOR FOR ADHERENCE WITH MEDICATION AND HEART FAILURE MANAGEMENT REGIMEN.] Future Scheduled Test DIABETES M ONITORING RN/INKER MACHINE/AERIAL ERECTOR TO MONITOR BLOOD SUGAR LOG FOR BLOOD SUGAR READINGS THAT ARE BEING CHECKED BY PATIENT, CAREGIVER NEEDED FOR SIGNS AND SYMPTOMS OF HYPER/HYPOGLYCEMIA. PATIENT THERAPEUTIC BLOOD SUGAR PARAMETERS ARE 70 - 300. REPORT BLOOD SUGARS OUT OF RANGE TO PHYSICIAN. NURSE MAY PERFORM FINGER STICK BLOOD GLUCOSE NEEDED FOR SIGNS AND SYMPTOMS OF HYPO AND HYPERGLYCEMIA. RN/INKER MACHINE/AERIAL ERECTOR TO MONITOR ADHERENCE OF PATIENT/CAREGIVER PERFORMING DIABETIC FOOT CARE AND MAY PERFORM DIABETIC FOOT CARE PRN. RN/INKER MACHINE/AERIAL ERECTOR TO MONITOR FOR ADHERENCE TO DIABETIC SELF-CARE AND MANAGEMENT INCLUDING MEDICATIONS. [code = DIABETES MONITORING RN/INKER MACHINE/AERIAL ERECTOR TO MONITOR BLOOD SUGAR LOG FOR BLOOD SUGAR READINGS THAT ARE BEING CHECKED BY PATIENT, CAREGIVER NEEDED FOR SIGNS AND SYMPTOMS OF HYPER/HYPOGLYCEMIA. PATIENT THERAPEUTIC BLOOD SUGAR PARAMETERS ARE 70 - 300. REPORT BLOOD SUGARS OUT OF RANGE TO PHYSICIAN. NURSE MAY PERFORM FINGER STICK BLOOD GLUCOSE NEEDED FOR SIGNS AND SYMPTOMS OF HYPO AND HYPERGLYCEMIA. RN/INKER MACHINE/AERIAL ERECTOR TO MONITOR ADHERENCE OF PATIENT/CAREGIVER PERFORMING DIABETIC FOOT CARE AND MAY PERFORM DIABETIC FOOT CARE PRN. RN/INKER MACHINE/AERIAL ERECTOR TO MONITOR FOR ADHERENCE TO DIABETIC SELF-CARE AND MANAGEMENT INCLUDING MEDICATIONS.] Future Scheduled Test HYPOTENSIO N MANAGEMENT; RN TO ASSESS AND TEACH/ AERIAL ERECTOR /INKER MACHINE TO OBSERVE AND TEACH WARNING SIGNS AND SYMPTOMS TO AVOID HOSPITALIZATION. [code = HYPOTENSION MANAGEMENT; RN TO ASSESS AND TEACH/ AERIAL ERECTOR /INKER MACHINE TO OBSERVE AND TEACH WARNING SIGNS AND SYMPTOMS TO AVOID HOSPITALIZATION.] Future Scheduled Test ARRHYTHMIA MANAGEMENT; RN TO ASSESS AND TEACH, AERIAL ERECTOR/INKER MACHINE TO OBSERVE AND TEACH WARNING SIGNS AND SYMPTOMS TO AVOID HOSPITALIZATION. [code = ARRHYTHMIA MANAGEMENT; RN TO ASSESS AND TEACH, AERIAL ERECTOR/INKER MACHINE TO OBSERVE AND TEACH WARNING SIGNS AND SYMPTOMS TO AVOID HOSPITALIZATION.] Future Scheduled Test MEDICATION MANAGEMENT; RN/AERIAL ERECTOR/INKER MACHINE TO REVIEW MEDICATIONS FOR INTERACTIONS, EFFECTIVENESS OF DRUG THERAPY, AND SIGNS/SYMPTOMS OF ADVERSE REACTIONS. MAY INSTRUCT AND REINFORCE MEDICATION TEACHING RELATED TO THE USE OF MEDICATIONS, DOSAGE, FREQUENCY, PURPOSE, SIDE EFFECTS, AND TO REPORT COMPLICATIONS. [code = MEDICATION MANAGEMENT; RN/AERIAL ERECTOR/INKER MACHINE TO REVIEW MEDICATIONS FOR INTERACTIONS, EFFECTIVENESS OF [...] EVAL UATE, OBSERVE / ASSESS, AND MONITOR, ACTUARIAL CONSULTANT TO OBSERVE AND MONITOR, PROVIDE SKILLED THERAPEUTIC INTERVENTION, ACTIVITY, EDUCATION, AND TRAINING TO ADDRESS GEN. WEAKNESS, POOR OVERALL ACTIVITY TOLERANCE, AND FUNCTIONAL LIMITATIONS IMPACTING SAFETY AND INDEPENDENCE. BED MOBILITY (PT/ACTUARIAL CONSULTANT) PT/ACTUARIAL CONSULTANT TO PROVIDE GAIT TRAINING FOR IMPROVED MOBILITY AND /OR TO NORMALIZE GAIT PATTERN THERAPEUTIC EXERCISES AND ESTABLISHING A HOME EXERCISE PROGRAM (PT/ACTUARIAL CONSULTANT) PT/ACTUARIAL CONSULTANT TO PROVIDE STAIR TRAINING PT / ACTUARIAL CONSULTANT TO MONITOR AND EDUCATE ON OXYGEN SATURATION DURING ADLS/IADLS, NOTIFY PHYSICIAN AND/OR THE RN CLINICAL PRETZEL TWISTING MACHINE OPERATOR FOR PHYSICIAN NOTIFICATION AND IF O2 SATS BELOW PHYSICIAN ORDERED PARAMETERS AFTER 10 MIN OF REST PT / ACTUARIAL CONSULTANT TO OBSERVE FOR EARLY SIGNS AND SYMPTOMS OF DEPRESSION OR DEPRESSION GETTING WORSE AND TO EDUCATE ON HOW TO FIND HELP. PT / ACTUARIAL CONSULTANT MAY EDUCATE ON PAIN MANAGEMENT CLINICALLY INDICATED, INCLUDING NON-PHARMACOLOGICAL PAIN REDUCTION TECHNIQUES PT / ACTUARIAL CONSULTANT TO MONITOR FOR HYPO/HYPERGLYCEMIA AND CONDUCT ROUTINE FOOT INSPECTIONS. RECORD PATIENT REPORTED BLOOD SUGAR LEVELS AND NOTIFY PHYSICIAN AND/OR THE RN CLINICAL PRETZEL TWISTING MACHINE OPERATOR FOR PHYSICIAN NOTIFICATION IF BLOOD SUGAR LEVELS ARE OUTSIDE ORDERED PARAMETERS. TEACH PATIENT/CAREGIVER ON DAILY FOOT INSPECTIONS PT / ACTUARIAL CONSULTANT TO INSTRUCT PATIENT/CAREGIVER ON RISK FOR HOSPITALIZATION/EMERGENCY ROOM VISITS, TEACH SIGNS AND SYMPTOMS THAT PUT PATIENT AT RISK, WHEN TO NOTIFY NURSE/PHYSICIAN OF COMPLICATIONS/DECLINE, AND WHEN TO CALL 911. PT/ACTUARIAL CONSULTANT TO EDUCATE ON ARTHRITIS SELF-MANAGEMENT PT / ACTUARIAL CONSULTANT TO EDUCATE ON HEART FAILURE SELF-MANAGEMENT PT / ACTUARIAL CONSULTANT TO EDUCATE ON HYPERTENSION SELF-MANAGEMENT PT TO ASSESS / ACTUARIAL CONSULTANT TO MONITOR CARDIO/RESPIRATORY SYSTEM; AND NOTIFY THE PHYSICIAN AND/OR THE RN CLINICAL PRETZEL TWISTING MACHINE OPERATOR FOR PHYSICIAN NOTIFICATION FOR EARLY SIGNS AND SYMPTOMS OF EXACERBATION OR DETERIORATION. PT / ACTUARIAL CONSULTANT TO EDUCATE ON ATRIAL FIBRILLATION SELF-MANAGEMENT. PT / ACTUARIAL CONSULTANT TO EDUCATE ON PNEUMONIA / ASPIRATION PNEUMONIA SELF-MANAGEMENT. PT/ACTUARIAL CONSULTANT TO IDENTIFY FALL RISK FACTORS; EDUCATE THE PATIENT/CAREGIVER ON WAYS TO REDUCE FALL RISK FACTORS AND ESTABLISH HOME EXERCISE PROGRAM TO MINIMIZE FALL RISK. MAY TEACH THE PATIENT FLOOR RECOVERY WHEN CLINICALLY APPROPRIATE [code = PT TO EVALUATE, OBSERVE / ASSESS, AND MONITOR, ACTUARIAL CONSULTANT TO OBSERVE AND MONITOR, PROVIDE SKILLED THERAPEUTIC INTERVENTION, ACTIVITY, EDUCATION, AND TRAINING TO ADDRESS GEN. WEAKNESS, POOR OVERALL ACTIVITY TOLERANCE, AND FUNCTIONAL LIMITATIONS IMPACTING SAFETY AND INDEPENDENCE. BED MOBILITY (PT/ACTUARIAL CONSULTANT) PT/ACTUARIAL CONSULTANT TO PROVIDE GAIT TRAINING FOR IMPROVED MOBILITY AND /OR TO NORMALIZE GAIT PATTERN THERAPEUTIC EXERCISES AND ESTABLISHING A HOME EXERCISE PROGRAM (PT/ACTUARIAL CONSULTANT) PT/ACTUARIAL CONSULTANT TO PROVIDE STAIR TRAINING PT / ACTUARIAL CONSULTANT TO MONITOR AND EDUCATE ON OXYGEN SATURATION DURING ADLS/IADLS, NOTIFY PHYSICIAN AND/OR THE RN CLINICAL PRETZEL TWISTING MACHINE OPERATOR FOR PHYSICIAN NOTIFICATION AND IF O2 SATS BELOW PHYSICIAN ORDERED PARAMETERS AFTER 10 MIN OF REST PT / ACTUARIAL CONSULTANT TO OBSERVE FOR EARLY SIGNS AND SYMPTOMS OF DEPRESSION OR DEPRESSION GETTING WORSE AND TO EDUCATE ON HOW TO FIND HELP. PT / ACTUARIAL CONSULTANT MAY EDUCATE ON PAIN MANAGEMENT CLINICALLY INDICATED, INCLUDING NON-PHARMACOLOGICAL PAIN REDUCTION TECHNIQUES PT / ACTUARIAL CONSULTANT TO MONITOR FOR HYPO/HYPERGLYCEMIA AND CONDUCT ROUTINE FOOT INSPECTIONS. RECORD PATIENT REPORTED BLOOD SUGAR LEVELS AND NOTIFY PHYSICIAN AND/OR THE RN CLINICAL PRETZEL TWISTING MACHINE OPERATOR FOR PHYSICIAN NOTIFICATION IF BLOOD SUGAR LEVELS ARE OUTSIDE ORDERED PARAMETERS. TEACH PATIENT/CAREGIVER ON DAILY FOOT INSPECTIONS PT / ACTUARIAL CONSULTANT TO INSTRUCT PATIENT/CAREGIVER ON RISK FOR HOSPITALIZATION/EMERGENCY ROOM VISITS, TEACH SIGNS AND SYMPTOMS THAT PUT PATIENT AT RISK, WHEN TO NOTIFY NURSE/PHYSICIAN OF COMPLICATIONS/DECLINE, AND WHEN TO CALL 911. PT/ACTUARIAL CONSULTANT TO EDUCATE ON ARTHRITIS SELF-MANAGEMENT PT / ACTUARIAL CONSULTANT TO EDUCATE ON HEART FAILURE SELF-MANAGEMENT PT / ACTUARIAL CONSULTANT TO EDUCATE ON HYPERTENSION SELF-MANAGEMENT PT TO ASSESS / ACTUARIAL CONSULTANT TO MONITOR CARDIO/RESPIRATORY SYSTEM; AND NOTIFY THE PHYSICIAN AND/OR THE RN CLINICAL PRETZEL TWISTING MACHINE OPERATOR FOR PHYSICIAN NOTIFICATION FOR EARLY SIGNS AND SYMPTOMS OF EXACERBATION OR DETERIORATION. PT / ACTUARIAL CONSULTANT TO EDUCATE ON ATRIAL FIBRILLATION SELF-MANAGEMENT. PT / ACTUARIAL CONSULTANT TO EDUCATE ON PNEUMONIA / ASPIRATION PNEUMONIA SELF-MANAGEMENT. PT/ACTUARIAL CONSULTANT TO IDENTIFY FALL RISK FACTORS; EDUCATE THE PATIENT/CAREGIVER ON WAYS TO REDUCE FALL RISK FACTORS AND ESTABLISH HOME EXERCISE PROGRAM TO MINIMIZE FALL RISK. MAY TEACH THE PATIENT FLOOR RECOVERY WHEN CLINICALLY APPROPRIATE] Future Scheduled Test AGENCY MAY PERFORM A RESUMPTION OF CARE VISIT FOLLOWING ANY HOSPITAL ADMISSION. OT TO EVALUATE, OBSERVE / ASSESS, AND MONITOR, STEAMBLASTER TO OBSERVE AND MONITOR, PROVIDE SKILLED THERAPEUTIC INTERVENTION, ACTIVITY, EDUCATION, AND TRAINING TO ADDRESS SAFETY AND INDEPENDENCE OF ADLS AND FUNCTIONAL TRANSFERS IN HOME ENVIRONMENT. ACTIVITIES OF DAILY LIVING (OT/MARIANNE) THERAPEUTIC EXERCISE (OT/STEAMBLASTER) ENERGY CONSERVATION/ACTIVITY DEMAND (OT/STEAMBLASTER) OT/STEAMBLASTER TO MONITOR AND EDUCATE ON OXYGEN SATURATION DURING ADLS/IADLS, NOTIFY PHYSICIAN AND/OR THE RN CLINICAL PRETZEL TWISTING MACHINE OPERATOR FOR PHYSICIAN NOTIFICATION AND IF O2 SATS BELOW 90% AFTER 10 MIN OF REST. OT / STEAMBLASTER TO IDENTIFY FALL RISK FACTORS; EDUCATE THE PATIENT/CAREGIVER ON WAYS TO REDUCE FALL RISK FACTORS AND ESTABLISH HOME EXERCISE PROGRAM TO MINIMIZE FALL RISK. MAY TEACH THE PATIENT FLOOR RECOVERY WHEN CLINICALLY APPROPRIATE. OT/STEAMBLASTER TO EDUCATE ON HYPERTENSION SELF-MANAGEMENT OT/MARIANNE TO EDUCATE ON ATRIAL FIBRILLATION SELF-MANAGEMENT. [code = AGENCY MAY PERFORM A RESUMPTION OF CARE VISIT FOLLOWING ANY HOSPITAL ADMISSION. OT TO EVALUATE, OBSERVE / ASSESS, AND MONITOR, STEAMBLASTER TO OBSERVE AND MONITOR, PROVIDE SKILLED THERAPEUTIC INTERVENTION, ACTIVITY, EDUCATION, AND TRAINING TO ADDRESS SAFETY AND INDEPENDENCE OF ADLS AND FUNCTIONAL TRANSFERS IN HOME ENVIRONMENT. ACTIVITIES OF DAILY LIVING (OT/MARIANNE) THERAPEUTIC EXERCISE (OT/STEAMBLASTER) ENERGY CONSERVATION/ACTIVITY DEMAND (OT/MARIANNE) OT/STEAMBLASTER TO MONITOR AND EDUCATE ON OXYGEN SATURATION DURING ADLS/IADLS, NOTIFY PHYSICIAN AND/OR THE RN CLINICAL PRETZEL TWISTING MACHINE OPERATOR FOR PHYSICIAN NOTIFICATION AND IF O2 SATS BELOW 90% AFTER 10 MIN OF REST. OT / MARIANNE TO IDENTIFY FALL RISK FACTORS; EDUCATE THE PATIENT/CAREGIVER ON WAYS TO REDUCE FALL RISK FACTORS AND ESTABLISH HOME EXERCISE PROGRAM TO MINIMIZE FALL RISK. MAY TEACH THE PATIENT FLOOR RECOVERY WHEN CLINICALLY APPROPRIATE. OT/STEAMBLASTER TO EDUCATE ON HYPERTENSION SELF-MANAGEMENT OT/MARIANNE TO [...] OF SKIN INTEGRITY ISSUES FROM SBA TO MO WITHIN 2 WKS. PT STG: PATIENT WILL [...] TO SAFELY NEGOTIATE STAIRS FROM SBA TO MO WITH 2 STEPS W/O HANDRAIL VIA FRONT [...] Outpatient NEW ADMISSION [facility] [id number]
--- OUTSIDE RECORDS SUMMARY | 2025-04-06 18:00 | XMS_ITS | Clinical Summary ---
Author Organization Unknown Care Team Providers Care Seo Executive Name Role Phone DIGNA ARIEL, ESTRELLA Unavailable Unava dinora STOKES RN, FRANKIE Unavailable Unavailabl e KARI PT, DIDI Unavailable Unavailable NAT TRACTOR EXPERT, GAUDENCIO Unavailable Unavailabl e RADHA OT, ROLANDO Unavailable Unavailable JOANNE STEVEN, HATTIE Unavailable Unavailable Payers Payer Name Policy Type Policy Number Effective Date Expira tion Date MEDICARE.[facility] [id number] Problems Condition Name Condition Details Condition Category Status Onset Date Resolution Date Last Treatment Date Treating Clinician Comments 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 02-07 [...] PNEUMONIA (RECURRENT) Active 02-07 00:00: 00 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 OF SYSTEMIC STEROIDS Active 02-07 [...] 80 mg tablet 02-07 00:00: 00 Yes [id number] CHOLESTEROL 1 tablet DAILY 1 tablet DAILY (route: oral) Med Classific ation: Cardiovas cular Therapy Agents digoxin 125 mcg (0.125 mg) tablet 02-07 00:00: 00 02-21 23:59 :00 No [id number] HEART RHYTHM 1 tablet DAILY 1 tablet DAILY (route: oral) Med Classific ation: Cardiovas cular Therapy Agents escitalopra m 10 mg tablet 02-07 00:00: 00 Yes [id number] MOOD 1 tablet DAILY 1 tablet DAILY (route: oral) Med Classific ation: Central Nervous System Agents ezetimibe 10 mg tablet 02-07 00:00: 00 Yes [id number] CHOLESTEROL 1 tablet DAILY 1 tablet DAILY (route: oral) Med Classific ation: Cardiovas cular Therapy Agents metoprolol succinate ER 25 mg tablet,exte nded release 24 hr 02-07 00:00: 00 02-21 23:59 :00 No [id number] BLOOD PRESSURE 0.5 tablet DAILY 0.5 tablet DAILY (route: oral) Med Classific ation: Cardiovas cular Therapy Agents pantoprazol e 40 mg tablet,joão yed release 02-07 00:00: 00 02-21 23:59 :00 No [id number] STOMACH ACID 1 tablet DAILY 1 tablet DAILY (route: oral) Med Classific ation: Gastroint estinal Therapy Agents prednisone 5 mg tablet 02-07 00:00: 00 Yes [id number] ADRENAL INSUFFICIEN CY 1 tablet DAILY 1 tablet DAILY (route: oral) Med Classific ation: Endocrine spironolact one 25 mg tablet 02-07 00:00: 00 Yes [id number] FLUID RETENTION 0.5 tablet DAILY 0.5 tablet DAILY (route: oral) Med Classific ation: Cardiovas cular Therapy Agents tamsulosin 0.4 mg capsule 02-07 00:00: 00 02-21 23:59 :00 No [id number] URINARY HEALTH 1 capsule DAILY 1 capsule DAILY (route: oral) Med Classific ation: Genitouri nary Therapy acetaminoph en 325 mg tablet 2024-05 00:00: 00 Yes [id number] PAIN 2 tablet 2 TIMES DAILY 2 tablet 2 TIMES DAILY (route: oral) Med Classific ation: Analgesic , Anti-infl ammatory or Antipyret ic aspirin 81 mg tablet 2024-05 00:00: 00 Yes [id number] ANTICOAGULA NT 1 tablet DAILY 1 tablet DAILY (route: oral) Med Classific ation: Hematolog ical Agents ipratropium 0.5 mg-albutero l 3 mg (2.5 mg base)/3 mL nebulizatio n soln 2024-05 00:00: 00 Yes [id number] COPD 3 mL EVERY 6 HOURS 3 mL EVERY 6 HOURS (route: inhalation ) Med Classific ation: Respirato ry Therapy Agents Lanoxin 62.5 mcg (0.0625 mg) tablet 2024-05 00:00: 00 Yes [id number] CHF 1 tablet DAILY 1 tablet DAILY (route: oral) Med Classific ation: Cardiovas cular Therapy Agents Lasix 20 mg tablet 2024-05 00:00: 00 Yes [id number] CHF 1 tablet DAILY 1 tablet DAILY (route: oral) Med Classific ation: Cardiovas cular Therapy Agents Toprol XL 25 mg tablet,exte nded release 2024-05 00:00: 00 Yes [id number] BP 25 mg DAILY 25 mg DAILY [...] SYSTEM MANAGEMENT; RN TO ASSESS AND TEACH, BEZEL CUTTER/REPAIRER MAINTENANCE BUILDING TO OBSERVE AND TEACH RELATED TO ALTERED RESPIRATORY STATUS TO MINIMIZE COMPLICATIONS AND REDUCE HOSPITALIZATION. [code = SN 1WK9 PT 1WK1 OT EFFECTIVE 02/10/2025K1 RESPIRATORY SYSTEM MANAGEMENT; RN TO ASSESS AND TEACH, BEZEL CUTTER/REPAIRER MAINTENANCE BUILDING TO OBSERVE AND TEACH RELATED TO ALTERED RESPIRATORY STATUS TO MINIMIZE COMPLICATIONS AND REDUCE HOSPITALIZATION.] Future Scheduled Test TRACHEOSTO MY CARE MANAGEMENT; RN/BEZEL CUTTER/REPAIRER MAINTENANCE BUILDING TO INSTRUCT PATIENT/CAREGIVER ON CARE AND MANAGEMENT OF TRACHEOSTOMY. RN/ BEZEL CUTTER/REPAIRER MAINTENANCE BUILDING TO PROVIDE SKILLED TEACHING ON TRACH COLLAR SUCTIONING PRN WITH 14 FR SUCTION CATHETER PER PATIENT TRACH CARE WITH INNER CANNULA: REMOVE INNER CANNULA, CLEANSE WITH NORMAL SALINE AND OR STERILE WATER AND REINSERT NON-DISPOSABLE CANNULA SIZE OF INNER CANNULA 5 BROOKS [code = TRACHEOSTOMY CARE MANAGEMENT; RN/BEZEL CUTTER/REPAIRER MAINTENANCE BUILDING TO INSTRUCT PATIENT/CAREGIVER ON CARE AND MANAGEMENT OF TRACHEOSTOMY. RN/ BEZEL CUTTER/REPAIRER MAINTENANCE BUILDING TO PROVIDE SKILLED TEACHING ON TRACH COLLAR SUCTIONING PRN WITH 14 FR SUCTION CATHETER PER PATIENT TRACH CARE WITH INNER CANNULA: REMOVE INNER CANNULA, CLEANSE WITH NORMAL SALINE AND OR STERILE WATER AND REINSERT NON-DISPOSABLE CANNULA SIZE OF INNER CANNULA 5 BROOKS] Future Scheduled Test FALL REDUC TION MANAGEMENT; RN TO ASSESS AND OBSERVE, BEZEL CUTTER/REPAIRER MAINTENANCE BUILDING TO OBSERVE FALL RISK FACTORS AND EDUCATE PATIENT/CAREGIVER ON STRATEGIES TO MINIMIZE THE RISK OF FALLING. [code = FALL REDUCTION MANAGEMENT; RN TO ASSESS AND OBSERVE, BEZEL CUTTER/REPAIRER MAINTENANCE BUILDING TO OBSERVE FALL RISK FACTORS AND EDUCATE PATIENT/CAREGIVER ON STRATEGIES TO MINIMIZE THE RISK OF FALLING.] Future Scheduled Test ANEMIA MAN AGEMENT; RN TO ASSESS AND TEACH, REPAIRER MAINTENANCE BUILDING/BEZEL CUTTER TO OBSERVE AND TEACH AND PROVIDE EDUCATION ON ANEMIA. [code = ANEMIA MANAGEMENT; RN TO ASSESS AND TEACH, REPAIRER MAINTENANCE BUILDING/BEZEL CUTTER TO OBSERVE AND TEACH AND PROVIDE EDUCATION ON ANEMIA.] Future Scheduled Test RN TO OBSE RVE, ASSESS, EVALUATE, AND DEVELOP AN INDIVIDUALIZED PLAN OF CARE. AGENCY MAY ACCEPT ORDERS FROM CONSULTING PHYSICIANS RN TO OBSERVE AND ASSESS, BEZEL CUTTER/REPAIRER MAINTENANCE BUILDING TO OBSERVE FOR RISK FOR FALLS AND INSTRUCT IN FALL PREVENTION, HOME SAFETY, MEDICATION MANAGEMENT, INFECTION PREVENTION, AND NUTRITION MANAGEMENT. RN/BEZEL CUTTER/REPAIRER MAINTENANCE BUILDING NURSE MAY PERFORM O2 SATURATION LEVEL ON ADMISSION AND PRN FOR RN TO ASSESS/BEZEL CUTTER TO OBSERVE PATIENT, WITH NOTIFICATION TO THE PHYSICIAN IF SATURATION IS 90% IN THE ABSENCE OF MORE SPECIFIC PARAMETERS FROM THE PHYSICIAN. AGENCY MAY PERFORM A RESUMPTION OF CARE VISIT FOLLOWING ANY HOSPITAL ADMISSION. RN/BEZEL CUTTER/REPAIRER MAINTENANCE BUILDING TO MONITOR CO-MORBID CONDITIONS LISTED ON THE PLAN OF CARE AND ANY NEW CONDITIONS THAT PRESENT THEMSELVES DURING THIS EPISODE TO IDENTIFY CHANGES AND INTERVENE TO MINIMIZE COMPLICATIONS. [code = RN TO OBSERVE, ASSESS, EVALUATE, AND DEVELOP AN INDIVIDUALIZED PLAN OF CARE. AGENCY MAY ACCEPT ORDERS FROM CONSULTING PHYSICIANS RN TO OBSERVE AND ASSESS, BEZEL CUTTER/REPAIRER MAINTENANCE BUILDING TO OBSERVE FOR RISK FOR FALLS AND INSTRUCT IN FALL PREVENTION, HOME SAFETY, MEDICATION MANAGEMENT, INFECTION PREVENTION, AND NUTRITION MANAGEMENT. RN/BEZEL CUTTER/REPAIRER MAINTENANCE BUILDING NURSE MAY PERFORM O2 SATURATION LEVEL ON ADMISSION AND PRN FOR RN TO ASSESS/BEZEL CUTTER TO OBSERVE PATIENT, WITH NOTIFICATION TO THE PHYSICIAN IF SATURATION IS 90% IN THE ABSENCE OF MORE SPECIFIC PARAMETERS FROM THE PHYSICIAN. AGENCY MAY PERFORM A RESUMPTION OF CARE VISIT FOLLOWING ANY HOSPITAL ADMISSION. RN/BEZEL CUTTER/REPAIRER MAINTENANCE BUILDING TO MONITOR CO-MORBID CONDITIONS LISTED ON THE PLAN OF CARE AND ANY NEW CONDITIONS THAT PRESENT THEMSELVES DURING THIS EPISODE TO IDENTIFY CHANGES AND INTERVENE TO MINIMIZE COMPLICATIONS.] Future Scheduled Test PAIN MANAG EMENT; RN TO ASSESS AND TEACH, REPAIRER MAINTENANCE BUILDING/BEZEL CUTTER TO OBSERVE AND TEACH AND PROVIDE EDUCATION ON PAIN MANAGEMENT TECHNIQUES. [code = PAIN MANAGEMENT; RN TO ASSESS AND TEACH, REPAIRER MAINTENANCE BUILDING/BEZEL CUTTER TO OBSERVE AND TEACH AND PROVIDE EDUCATION ON PAIN MANAGEMENT TECHNIQUES.] Future Scheduled Test RISK FOR H OSPITALIZATION; RN TO ASSESS/TEACH, REPAIRER MAINTENANCE BUILDING/BEZEL CUTTER TO OBSERVE/TEACH PATIENT/CAREGIVER ON RISK FOR HOSPITALIZATION/EMERGENCY ROOM VISITS, TEACH SIGNS AND SYMPTOMS THAT PUT PATIENT AT RISK, WHEN TO NOTIFY NURSE/PHYSICIAN OF COMPLICATIONS/DECLINE, AND WHEN TO CALL 911. [code = RISK FOR HOSPITALIZATION; RN TO ASSESS/TEACH, REPAIRER MAINTENANCE BUILDING/BEZEL CUTTER TO OBSERVE/TEACH PATIENT/CAREGIVER ON RISK FOR HOSPITALIZATION/EMERGENCY ROOM VISITS, TEACH SIGNS AND SYMPTOMS THAT PUT PATIENT AT RISK, WHEN TO NOTIFY NURSE/PHYSICIAN OF COMPLICATIONS/DECLINE, AND WHEN TO CALL 911.] Future Scheduled Test CARDIOVASC ULAR SYSTEM; RN TO ASSESS/TEACH, BEZEL CUTTER/REPAIRER MAINTENANCE BUILDING TO OBSERVE/TEACH RELATED TO ALTERED CARDIOVASCULAR STATUS TO MINIMIZE COMPLICATIONS AND REDUCE HOSPITALIZATION. [code = CARDIOVASCULAR SYSTEM; RN TO ASSESS/TEACH, BEZEL CUTTER/REPAIRER MAINTENANCE BUILDING TO OBSERVE/TEACH RELATED TO ALTERED CARDIOVASCULAR STATUS TO MINIMIZE COMPLICATIONS AND REDUCE HOSPITALIZATION.] Future Scheduled Test HYPERTENSI ON MANAGEMENT; RN TO ASSESS AND TEACH, BEZEL CUTTER/REPAIRER MAINTENANCE BUILDING TO OBSERVE AND TEACH WARNING SIGNS AND SYMPTOMS TO AVOID HOSPITALIZATION. [code = HYPERTENSION MANAGEMENT; RN TO ASSESS AND TEACH, BEZEL CUTTER/REPAIRER MAINTENANCE BUILDING TO OBSERVE AND TEACH WARNING SIGNS AND SYMPTOMS TO AVOID HOSPITALIZATION.] Future Scheduled Test HEART FAIL URE MONITORING RN/REPAIRER MAINTENANCE BUILDING/BEZEL CUTTER TO MONITOR PATIENT FOR SIGNS AND SYMPTOMS OF HEART FAILURE EXACERBATION, MONITOR FOR ADHERENCE WITH MEDICATION AND HEART FAILURE MANAGEMENT REGIMEN. [code = HEART FAILURE MONITORING RN/REPAIRER MAINTENANCE BUILDING/BEZEL CUTTER TO MONITOR PATIENT FOR SIGNS AND SYMPTOMS OF HEART FAILURE EXACERBATION, MONITOR FOR ADHERENCE WITH MEDICATION AND HEART FAILURE MANAGEMENT REGIMEN.] Future Scheduled Test DIABETES M ONITORING RN/REPAIRER MAINTENANCE BUILDING/BEZEL CUTTER TO MONITOR BLOOD SUGAR LOG FOR BLOOD SUGAR READINGS THAT ARE BEING CHECKED BY PATIENT, CAREGIVER NEEDED FOR SIGNS AND SYMPTOMS OF HYPER/HYPOGLYCEMIA. PATIENT THERAPEUTIC BLOOD SUGAR PARAMETERS ARE 70 - 300. REPORT BLOOD SUGARS OUT OF RANGE TO PHYSICIAN. NURSE MAY PERFORM FINGER STICK BLOOD GLUCOSE NEEDED FOR SIGNS AND SYMPTOMS OF HYPO AND HYPERGLYCEMIA. RN/REPAIRER MAINTENANCE BUILDING/BEZEL CUTTER TO MONITOR ADHERENCE OF PATIENT/CAREGIVER PERFORMING DIABETIC FOOT CARE AND MAY PERFORM DIABETIC FOOT CARE PRN. RN/REPAIRER MAINTENANCE BUILDING/BEZEL CUTTER TO MONITOR FOR ADHERENCE TO DIABETIC SELF-CARE AND MANAGEMENT INCLUDING MEDICATIONS. [code = DIABETES MONITORING RN/REPAIRER MAINTENANCE BUILDING/BEZEL CUTTER TO MONITOR BLOOD SUGAR LOG FOR BLOOD SUGAR READINGS THAT ARE BEING CHECKED BY PATIENT, CAREGIVER NEEDED FOR SIGNS AND SYMPTOMS OF HYPER/HYPOGLYCEMIA. PATIENT THERAPEUTIC BLOOD SUGAR PARAMETERS ARE 70 - 300. REPORT BLOOD SUGARS OUT OF RANGE TO PHYSICIAN. NURSE MAY PERFORM FINGER STICK BLOOD GLUCOSE NEEDED FOR SIGNS AND SYMPTOMS OF HYPO AND HYPERGLYCEMIA. RN/REPAIRER MAINTENANCE BUILDING/BEZEL CUTTER TO MONITOR ADHERENCE OF PATIENT/CAREGIVER PERFORMING DIABETIC FOOT CARE AND MAY PERFORM DIABETIC FOOT CARE PRN. RN/REPAIRER MAINTENANCE BUILDING/BEZEL CUTTER TO MONITOR FOR ADHERENCE TO DIABETIC SELF-CARE AND MANAGEMENT INCLUDING MEDICATIONS.] Future Scheduled Test HYPOTENSIO N MANAGEMENT; RN TO ASSESS AND TEACH/ BEZEL CUTTER /REPAIRER MAINTENANCE BUILDING TO OBSERVE AND TEACH WARNING SIGNS AND SYMPTOMS TO AVOID HOSPITALIZATION. [code = HYPOTENSION MANAGEMENT; RN TO ASSESS AND TEACH/ BEZEL CUTTER /REPAIRER MAINTENANCE BUILDING TO OBSERVE AND TEACH WARNING SIGNS AND SYMPTOMS TO AVOID HOSPITALIZATION.] Future Scheduled Test ARRHYTHMIA MANAGEMENT; RN TO ASSESS AND TEACH, BEZEL CUTTER/REPAIRER MAINTENANCE BUILDING TO OBSERVE AND TEACH WARNING SIGNS AND SYMPTOMS TO AVOID HOSPITALIZATION. [code = ARRHYTHMIA MANAGEMENT; RN TO ASSESS AND TEACH, BEZEL CUTTER/REPAIRER MAINTENANCE BUILDING TO OBSERVE AND TEACH WARNING SIGNS AND SYMPTOMS TO AVOID HOSPITALIZATION.] Future Scheduled Test MEDICATION MANAGEMENT; RN/BEZEL CUTTER/REPAIRER MAINTENANCE BUILDING TO REVIEW MEDICATIONS FOR INTERACTIONS, EFFECTIVENESS OF DRUG THERAPY, AND SIGNS/SYMPTOMS OF ADVERSE REACTIONS. MAY INSTRUCT AND REINFORCE MEDICATION TEACHING RELATED TO THE USE OF MEDICATIONS, DOSAGE, FREQUENCY, PURPOSE, SIDE EFFECTS, AND TO REPORT COMPLICATIONS. [code = MEDICATION MANAGEMENT; RN/BEZEL CUTTER/REPAIRER MAINTENANCE BUILDING TO REVIEW MEDICATIONS FOR INTERACTIONS, EFFECTIVENESS OF [...] EVAL UATE, OBSERVE / ASSESS, AND MONITOR, TRACTOR EXPERT TO OBSERVE AND MONITOR, PROVIDE SKILLED THERAPEUTIC INTERVENTION, ACTIVITY, EDUCATION, AND TRAINING TO ADDRESS GEN. WEAKNESS, POOR OVERALL ACTIVITY TOLERANCE, AND FUNCTIONAL LIMITATIONS IMPACTING SAFETY AND INDEPENDENCE. BED MOBILITY (PT/TRACTOR EXPERT) PT/TRACTOR EXPERT TO PROVIDE GAIT TRAINING FOR IMPROVED MOBILITY AND /OR TO NORMALIZE GAIT PATTERN THERAPEUTIC EXERCISES AND ESTABLISHING A HOME EXERCISE PROGRAM (PT/TRACTOR EXPERT) PT/TRACTOR EXPERT TO PROVIDE STAIR TRAINING PT / TRACTOR EXPERT TO MONITOR AND EDUCATE ON OXYGEN SATURATION DURING ADLS/IADLS, NOTIFY PHYSICIAN AND/OR THE RN CLINICAL STRAIGHTENER AND ALIGNER FOR PHYSICIAN NOTIFICATION AND IF O2 SATS BELOW PHYSICIAN ORDERED PARAMETERS AFTER 10 MIN OF REST PT / TRACTOR EXPERT TO OBSERVE FOR EARLY SIGNS AND SYMPTOMS OF DEPRESSION OR DEPRESSION GETTING WORSE AND TO EDUCATE ON HOW TO FIND HELP. PT / TRACTOR EXPERT MAY EDUCATE ON PAIN MANAGEMENT CLINICALLY INDICATED, INCLUDING NON-PHARMACOLOGICAL PAIN REDUCTION TECHNIQUES PT / TRACTOR EXPERT TO MONITOR FOR HYPO/HYPERGLYCEMIA AND CONDUCT ROUTINE FOOT INSPECTIONS. RECORD PATIENT REPORTED BLOOD SUGAR LEVELS AND NOTIFY PHYSICIAN AND/OR THE RN CLINICAL STRAIGHTENER AND ALIGNER FOR PHYSICIAN NOTIFICATION IF BLOOD SUGAR LEVELS ARE OUTSIDE ORDERED PARAMETERS. TEACH PATIENT/CAREGIVER ON DAILY FOOT INSPECTIONS PT / TRACTOR EXPERT TO INSTRUCT PATIENT/CAREGIVER ON RISK FOR HOSPITALIZATION/EMERGENCY ROOM VISITS, TEACH SIGNS AND SYMPTOMS THAT PUT PATIENT AT RISK, WHEN TO NOTIFY NURSE/PHYSICIAN OF COMPLICATIONS/DECLINE, AND WHEN TO CALL 911. PT/TRACTOR EXPERT TO EDUCATE ON ARTHRITIS SELF-MANAGEMENT PT / TRACTOR EXPERT TO EDUCATE ON HEART FAILURE SELF-MANAGEMENT PT / TRACTOR EXPERT TO EDUCATE ON HYPERTENSION SELF-MANAGEMENT PT TO ASSESS / TRACTOR EXPERT TO MONITOR CARDIO/RESPIRATORY SYSTEM; AND NOTIFY THE PHYSICIAN AND/OR THE RN CLINICAL STRAIGHTENER AND ALIGNER FOR PHYSICIAN NOTIFICATION FOR EARLY SIGNS AND SYMPTOMS OF EXACERBATION OR DETERIORATION. PT / TRACTOR EXPERT TO EDUCATE ON ATRIAL FIBRILLATION SELF-MANAGEMENT. PT / TRACTOR EXPERT TO EDUCATE ON PNEUMONIA / ASPIRATION PNEUMONIA SELF-MANAGEMENT. PT/TRACTOR EXPERT TO IDENTIFY FALL RISK FACTORS; EDUCATE THE PATIENT/CAREGIVER ON WAYS TO REDUCE FALL RISK FACTORS AND ESTABLISH HOME EXERCISE PROGRAM TO MINIMIZE FALL RISK. MAY TEACH THE PATIENT FLOOR RECOVERY WHEN CLINICALLY APPROPRIATE [code = PT TO EVALUATE, OBSERVE / ASSESS, AND MONITOR, TRACTOR EXPERT TO OBSERVE AND MONITOR, PROVIDE SKILLED THERAPEUTIC INTERVENTION, ACTIVITY, EDUCATION, AND TRAINING TO ADDRESS GEN. WEAKNESS, POOR OVERALL ACTIVITY TOLERANCE, AND FUNCTIONAL LIMITATIONS IMPACTING SAFETY AND INDEPENDENCE. BED MOBILITY (PT/TRACTOR EXPERT) PT/TRACTOR EXPERT TO PROVIDE GAIT TRAINING FOR IMPROVED MOBILITY AND /OR TO NORMALIZE GAIT PATTERN THERAPEUTIC EXERCISES AND ESTABLISHING A HOME EXERCISE PROGRAM (PT/TRACTOR EXPERT) PT/TRACTOR EXPERT TO PROVIDE STAIR TRAINING PT / TRACTOR EXPERT TO MONITOR AND EDUCATE ON OXYGEN SATURATION DURING ADLS/IADLS, NOTIFY PHYSICIAN AND/OR THE RN CLINICAL STRAIGHTENER AND ALIGNER FOR PHYSICIAN NOTIFICATION AND IF O2 SATS BELOW PHYSICIAN ORDERED PARAMETERS AFTER 10 MIN OF REST PT / TRACTOR EXPERT TO OBSERVE FOR EARLY SIGNS AND SYMPTOMS OF DEPRESSION OR DEPRESSION GETTING WORSE AND TO EDUCATE ON HOW TO FIND HELP. PT / TRACTOR EXPERT MAY EDUCATE ON PAIN MANAGEMENT CLINICALLY INDICATED, INCLUDING NON-PHARMACOLOGICAL PAIN REDUCTION TECHNIQUES PT / TRACTOR EXPERT TO MONITOR FOR HYPO/HYPERGLYCEMIA AND CONDUCT ROUTINE FOOT INSPECTIONS. RECORD PATIENT REPORTED BLOOD SUGAR LEVELS AND NOTIFY PHYSICIAN AND/OR THE RN CLINICAL STRAIGHTENER AND ALIGNER FOR PHYSICIAN NOTIFICATION IF BLOOD SUGAR LEVELS ARE OUTSIDE ORDERED PARAMETERS. TEACH PATIENT/CAREGIVER ON DAILY FOOT INSPECTIONS PT / TRACTOR EXPERT TO INSTRUCT PATIENT/CAREGIVER ON RISK FOR HOSPITALIZATION/EMERGENCY ROOM VISITS, TEACH SIGNS AND SYMPTOMS THAT PUT PATIENT AT RISK, WHEN TO NOTIFY NURSE/PHYSICIAN OF COMPLICATIONS/DECLINE, AND WHEN TO CALL 911. PT/TRACTOR EXPERT TO EDUCATE ON ARTHRITIS SELF-MANAGEMENT PT / TRACTOR EXPERT TO EDUCATE ON HEART FAILURE SELF-MANAGEMENT PT / TRACTOR EXPERT TO EDUCATE ON HYPERTENSION SELF-MANAGEMENT PT TO ASSESS / TRACTOR EXPERT TO MONITOR CARDIO/RESPIRATORY SYSTEM; AND NOTIFY THE PHYSICIAN AND/OR THE RN CLINICAL STRAIGHTENER AND ALIGNER FOR PHYSICIAN NOTIFICATION FOR EARLY SIGNS AND SYMPTOMS OF EXACERBATION OR DETERIORATION. PT / TRACTOR EXPERT TO EDUCATE ON ATRIAL FIBRILLATION SELF-MANAGEMENT. PT / TRACTOR EXPERT TO EDUCATE ON PNEUMONIA / ASPIRATION PNEUMONIA SELF-MANAGEMENT. PT/TRACTOR EXPERT TO IDENTIFY FALL RISK FACTORS; EDUCATE THE PATIENT/CAREGIVER ON WAYS TO REDUCE FALL RISK FACTORS AND ESTABLISH HOME EXERCISE PROGRAM TO MINIMIZE FALL RISK. MAY TEACH THE PATIENT FLOOR RECOVERY WHEN CLINICALLY APPROPRIATE] Future Scheduled Test AGENCY MAY PERFORM A RESUMPTION OF CARE VISIT FOLLOWING ANY HOSPITAL ADMISSION. OT TO EVALUATE, OBSERVE / ASSESS, AND MONITOR, TRUCK SERVICE MANAGER TO OBSERVE AND MONITOR, PROVIDE SKILLED THERAPEUTIC INTERVENTION, ACTIVITY, EDUCATION, AND TRAINING TO ADDRESS SAFETY AND INDEPENDENCE OF ADLS AND FUNCTIONAL TRANSFERS IN HOME ENVIRONMENT. ACTIVITIES OF DAILY LIVING (OT/MARIANNE) THERAPEUTIC EXERCISE (OT/TRUCK SERVICE MANAGER) ENERGY CONSERVATION/ACTIVITY DEMAND (OT/TRUCK SERVICE MANAGER) OT/TRUCK SERVICE MANAGER TO MONITOR AND EDUCATE ON OXYGEN SATURATION DURING ADLS/IADLS, NOTIFY PHYSICIAN AND/OR THE RN CLINICAL STRAIGHTENER AND ALIGNER FOR PHYSICIAN NOTIFICATION AND IF O2 SATS BELOW 90% AFTER 10 MIN OF REST. OT / TRUCK SERVICE MANAGER TO IDENTIFY FALL RISK FACTORS; EDUCATE THE PATIENT/CAREGIVER ON WAYS TO REDUCE FALL RISK FACTORS AND ESTABLISH HOME EXERCISE PROGRAM TO MINIMIZE FALL RISK. MAY TEACH THE PATIENT FLOOR RECOVERY WHEN CLINICALLY APPROPRIATE. OT/TRUCK SERVICE MANAGER TO EDUCATE ON HYPERTENSION SELF-MANAGEMENT OT/MARIANNE TO EDUCATE ON ATRIAL FIBRILLATION SELF-MANAGEMENT. [code = AGENCY MAY PERFORM A RESUMPTION OF CARE VISIT FOLLOWING ANY HOSPITAL ADMISSION. OT TO EVALUATE, OBSERVE / ASSESS, AND MONITOR, TRUCK SERVICE MANAGER TO OBSERVE AND MONITOR, PROVIDE SKILLED THERAPEUTIC INTERVENTION, ACTIVITY, EDUCATION, AND TRAINING TO ADDRESS SAFETY AND INDEPENDENCE OF ADLS AND FUNCTIONAL TRANSFERS IN HOME ENVIRONMENT. ACTIVITIES OF DAILY LIVING (OT/MARIANNE) THERAPEUTIC EXERCISE (OT/TRUCK SERVICE MANAGER) ENERGY CONSERVATION/ACTIVITY DEMAND (OT/MARIANNE) OT/TRUCK SERVICE MANAGER TO MONITOR AND EDUCATE ON OXYGEN SATURATION DURING ADLS/IADLS, NOTIFY PHYSICIAN AND/OR THE RN CLINICAL STRAIGHTENER AND ALIGNER FOR PHYSICIAN NOTIFICATION AND IF O2 SATS BELOW 90% AFTER 10 MIN OF REST. OT / MARIANNE TO IDENTIFY FALL RISK FACTORS; EDUCATE THE PATIENT/CAREGIVER ON WAYS TO REDUCE FALL RISK FACTORS AND ESTABLISH HOME EXERCISE PROGRAM TO MINIMIZE FALL RISK. MAY TEACH THE PATIENT FLOOR RECOVERY WHEN CLINICALLY APPROPRIATE. OT/TRUCK SERVICE MANAGER TO EDUCATE ON HYPERTENSION SELF-MANAGEMENT OT/MARIANNE [...] FRANKIE STOKES [facility] [id number]
--- OUTSIDE RECORDS SUMMARY | 2025-04-06 18:00 | XMS_ITS | Clinical Summary ---
Author Organization Unknown Care Team Providers [employer] Name Role Phone DIGNA ARIEL, ESTRELLA Unavailable Unava dinora STOKES RN, FRANKIE Unavailable Unavailabl e KARI PT, DIDI Unavailable Unavailable NAT BULB SORTER, GAUDENCIO Unavailable Unavailabl e RADHA OT, ROLANDO Unavailable Unavailable JOANNE STEVEN, HATTIE Unavailable Unavailable Payers Payer Name Policy Type Policy Number Effective Date Expira tion Date MEDICARE.[facility] [id number] Problems Condition Name Condition Details Condition Category Status Onset Date Resolution Date Last Treatment Date Treating Clinician Comments 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 02-07 [...] OF PNEUMONIA (RECURRENT) Active 02-07 00:00: 00 KAYAK MAKER (CURRENT) USE OF SYSTEMIC STEROIDS Active [...] 80 mg tablet 02-07 00:00: 00 Yes [id number] CHOLESTEROL 1 tablet DAILY 1 tablet DAILY (route: oral) Med Classific ation: Cardiovas cular Therapy Agents digoxin 125 mcg (0.125 mg) tablet 02-07 00:00: 00 02-21 23:59 :00 No [id number] HEART RHYTHM 1 tablet DAILY 1 tablet DAILY (route: oral) Med Classific ation: Cardiovas cular Therapy Agents escitalopra m 10 mg tablet 02-07 00:00: 00 Yes [id number] MOOD 1 tablet DAILY 1 tablet DAILY (route: oral) Med Classific ation: Central Nervous System Agents ezetimibe 10 mg tablet 02-07 00:00: 00 Yes [id number] CHOLESTEROL 1 tablet DAILY 1 tablet DAILY (route: oral) Med Classific ation: Cardiovas cular Therapy Agents metoprolol succinate ER 25 mg tablet,exte nded release 24 hr 02-07 00:00: 00 02-21 23:59 :00 No [id number] BLOOD PRESSURE 0.5 tablet DAILY 0.5 tablet DAILY (route: oral) Med Classific ation: Cardiovas cular Therapy Agents pantoprazol e 40 mg tablet,joão yed release 02-07 00:00: 00 02-21 23:59 :00 No [id number] STOMACH ACID 1 tablet DAILY 1 tablet DAILY (route: oral) Med Classific ation: Gastroint estinal Therapy Agents prednisone 5 mg tablet 02-07 00:00: 00 Yes [id number] ADRENAL INSUFFICIEN CY 1 tablet DAILY 1 tablet DAILY (route: oral) Med Classific ation: Endocrine spironolact one 25 mg tablet 02-07 00:00: 00 Yes [id number] FLUID RETENTION 0.5 tablet DAILY 0.5 tablet DAILY (route: oral) Med Classific ation: Cardiovas cular Therapy Agents tamsulosin 0.4 mg capsule 02-07 00:00: 00 02-21 23:59 :00 No [id number] URINARY HEALTH 1 capsule DAILY 1 capsule DAILY (route: oral) Med Classific ation: Genitouri nary Therapy acetaminoph en 325 mg tablet 2024-05 00:00: 00 Yes [id number] PAIN 2 tablet 2 TIMES DAILY 2 tablet 2 TIMES DAILY (route: oral) Med Classific ation: Analgesic , Anti-infl ammatory or Antipyret ic aspirin 81 mg tablet 2024-05 00:00: 00 Yes [id number] ANTICOAGULA NT 1 tablet DAILY 1 tablet DAILY (route: oral) Med Classific ation: Hematolog ical Agents ipratropium 0.5 mg-albutero l 3 mg (2.5 mg base)/3 mL nebulizatio n soln 2024-05 00:00: 00 Yes [id number] COPD 3 mL EVERY 6 HOURS 3 mL EVERY 6 HOURS (route: inhalation ) Med Classific ation: Respirato ry Therapy Agents Lanoxin 62.5 mcg (0.0625 mg) tablet 2024-05 00:00: 00 Yes [id number] CHF 1 tablet DAILY 1 tablet DAILY (route: oral) Med Classific ation: Cardiovas cular Therapy Agents Lasix 20 mg tablet 2024-05 00:00: 00 Yes [id number] CHF 1 tablet DAILY 1 tablet DAILY (route: oral) Med Classific ation: Cardiovas cular Therapy Agents Toprol XL 25 mg tablet,exte nded release 2024-05 00:00: 00 Yes [id number] BP 25 mg DAILY 25 mg DAILY [...] SYSTEM MANAGEMENT; RN TO ASSESS AND TEACH, SPECIAL CERTIFICATE DICTATOR/DRAWING OPERATOR TO OBSERVE AND TEACH RELATED TO ALTERED RESPIRATORY STATUS TO MINIMIZE COMPLICATIONS AND REDUCE HOSPITALIZATION. [code = SN 1WK9 PT 1WK1 OT EFFECTIVE 02/10/2025K1 RESPIRATORY SYSTEM MANAGEMENT; RN TO ASSESS AND TEACH, SPECIAL CERTIFICATE DICTATOR/DRAWING OPERATOR TO OBSERVE AND TEACH RELATED TO ALTERED RESPIRATORY STATUS TO MINIMIZE COMPLICATIONS AND REDUCE HOSPITALIZATION.] Future Scheduled Test TRACHEOSTO MY CARE MANAGEMENT; RN/SPECIAL CERTIFICATE DICTATOR/DRAWING OPERATOR TO INSTRUCT PATIENT/CAREGIVER ON CARE AND MANAGEMENT OF TRACHEOSTOMY. RN/ SPECIAL CERTIFICATE DICTATOR/DRAWING OPERATOR TO PROVIDE SKILLED TEACHING ON TRACH COLLAR SUCTIONING PRN WITH 14 FR SUCTION CATHETER PER PATIENT TRACH CARE WITH INNER CANNULA: REMOVE INNER CANNULA, CLEANSE WITH NORMAL SALINE AND OR STERILE WATER AND REINSERT NON-DISPOSABLE CANNULA SIZE OF INNER CANNULA 5 BROOKS [code = TRACHEOSTOMY CARE MANAGEMENT; RN/SPECIAL CERTIFICATE DICTATOR/DRAWING OPERATOR TO INSTRUCT PATIENT/CAREGIVER ON CARE AND MANAGEMENT OF TRACHEOSTOMY. RN/ SPECIAL CERTIFICATE DICTATOR/DRAWING OPERATOR TO PROVIDE SKILLED TEACHING ON TRACH COLLAR SUCTIONING PRN WITH 14 FR SUCTION CATHETER PER PATIENT TRACH CARE WITH INNER CANNULA: REMOVE INNER CANNULA, CLEANSE WITH NORMAL SALINE AND OR STERILE WATER AND REINSERT NON-DISPOSABLE CANNULA SIZE OF INNER CANNULA 5 BROOKS] Future Scheduled Test FALL REDUC TION MANAGEMENT; RN TO ASSESS AND OBSERVE, SPECIAL CERTIFICATE DICTATOR/DRAWING OPERATOR TO OBSERVE FALL RISK FACTORS AND EDUCATE PATIENT/CAREGIVER ON STRATEGIES TO MINIMIZE THE RISK OF FALLING. [code = FALL REDUCTION MANAGEMENT; RN TO ASSESS AND OBSERVE, SPECIAL CERTIFICATE DICTATOR/DRAWING OPERATOR TO OBSERVE FALL RISK FACTORS AND EDUCATE PATIENT/CAREGIVER ON STRATEGIES TO MINIMIZE THE RISK OF FALLING.] Future Scheduled Test ANEMIA MAN AGEMENT; RN TO ASSESS AND TEACH, DRAWING OPERATOR/SPECIAL CERTIFICATE DICTATOR TO OBSERVE AND TEACH AND PROVIDE EDUCATION ON ANEMIA. [code = ANEMIA MANAGEMENT; RN TO ASSESS AND TEACH, DRAWING OPERATOR/SPECIAL CERTIFICATE DICTATOR TO OBSERVE AND TEACH AND PROVIDE EDUCATION ON ANEMIA.] Future Scheduled Test RN TO OBSE RVE, ASSESS, EVALUATE, AND DEVELOP AN INDIVIDUALIZED PLAN OF CARE. AGENCY MAY ACCEPT ORDERS FROM CONSULTING PHYSICIANS RN TO OBSERVE AND ASSESS, SPECIAL CERTIFICATE DICTATOR/DRAWING OPERATOR TO OBSERVE FOR RISK FOR FALLS AND INSTRUCT IN FALL PREVENTION, HOME SAFETY, MEDICATION MANAGEMENT, INFECTION PREVENTION, AND NUTRITION MANAGEMENT. RN/SPECIAL CERTIFICATE DICTATOR/DRAWING OPERATOR NURSE MAY PERFORM O2 SATURATION LEVEL ON ADMISSION AND PRN FOR RN TO ASSESS/SPECIAL CERTIFICATE DICTATOR TO OBSERVE PATIENT, WITH NOTIFICATION TO THE PHYSICIAN IF SATURATION IS 90% IN THE ABSENCE OF MORE SPECIFIC PARAMETERS FROM THE PHYSICIAN. AGENCY MAY PERFORM A RESUMPTION OF CARE VISIT FOLLOWING ANY HOSPITAL ADMISSION. RN/SPECIAL CERTIFICATE DICTATOR/DRAWING OPERATOR TO MONITOR CO-MORBID CONDITIONS LISTED ON THE PLAN OF CARE AND ANY NEW CONDITIONS THAT PRESENT THEMSELVES DURING THIS EPISODE TO IDENTIFY CHANGES AND INTERVENE TO MINIMIZE COMPLICATIONS. [code = RN TO OBSERVE, ASSESS, EVALUATE, AND DEVELOP AN INDIVIDUALIZED PLAN OF CARE. AGENCY MAY ACCEPT ORDERS FROM CONSULTING PHYSICIANS RN TO OBSERVE AND ASSESS, SPECIAL CERTIFICATE DICTATOR/DRAWING OPERATOR TO OBSERVE FOR RISK FOR FALLS AND INSTRUCT IN FALL PREVENTION, HOME SAFETY, MEDICATION MANAGEMENT, INFECTION PREVENTION, AND NUTRITION MANAGEMENT. RN/SPECIAL CERTIFICATE DICTATOR/DRAWING OPERATOR NURSE MAY PERFORM O2 SATURATION LEVEL ON ADMISSION AND PRN FOR RN TO ASSESS/SPECIAL CERTIFICATE DICTATOR TO OBSERVE PATIENT, WITH NOTIFICATION TO THE PHYSICIAN IF SATURATION IS 90% IN THE ABSENCE OF MORE SPECIFIC PARAMETERS FROM THE PHYSICIAN. AGENCY MAY PERFORM A RESUMPTION OF CARE VISIT FOLLOWING ANY HOSPITAL ADMISSION. RN/SPECIAL CERTIFICATE DICTATOR/DRAWING OPERATOR TO MONITOR CO-MORBID CONDITIONS LISTED ON THE PLAN OF CARE AND ANY NEW CONDITIONS THAT PRESENT THEMSELVES DURING THIS EPISODE TO IDENTIFY CHANGES AND INTERVENE TO MINIMIZE COMPLICATIONS.] Future Scheduled Test PAIN MANAG EMENT; RN TO ASSESS AND TEACH, DRAWING OPERATOR/SPECIAL CERTIFICATE DICTATOR TO OBSERVE AND TEACH AND PROVIDE EDUCATION ON PAIN MANAGEMENT TECHNIQUES. [code = PAIN MANAGEMENT; RN TO ASSESS AND TEACH, DRAWING OPERATOR/SPECIAL CERTIFICATE DICTATOR TO OBSERVE AND TEACH AND PROVIDE EDUCATION ON PAIN MANAGEMENT TECHNIQUES.] Future Scheduled Test RISK FOR H OSPITALIZATION; RN TO ASSESS/TEACH, DRAWING OPERATOR/SPECIAL CERTIFICATE DICTATOR TO OBSERVE/TEACH PATIENT/CAREGIVER ON RISK FOR HOSPITALIZATION/EMERGENCY ROOM VISITS, TEACH SIGNS AND SYMPTOMS THAT PUT PATIENT AT RISK, WHEN TO NOTIFY NURSE/PHYSICIAN OF COMPLICATIONS/DECLINE, AND WHEN TO CALL 911. [code = RISK FOR HOSPITALIZATION; RN TO ASSESS/TEACH, DRAWING OPERATOR/SPECIAL CERTIFICATE DICTATOR TO OBSERVE/TEACH PATIENT/CAREGIVER ON RISK FOR HOSPITALIZATION/EMERGENCY ROOM VISITS, TEACH SIGNS AND SYMPTOMS THAT PUT PATIENT AT RISK, WHEN TO NOTIFY NURSE/PHYSICIAN OF COMPLICATIONS/DECLINE, AND WHEN TO CALL 911.] Future Scheduled Test CARDIOVASC ULAR SYSTEM; RN TO ASSESS/TEACH, SPECIAL CERTIFICATE DICTATOR/DRAWING OPERATOR TO OBSERVE/TEACH RELATED TO ALTERED CARDIOVASCULAR STATUS TO MINIMIZE COMPLICATIONS AND REDUCE HOSPITALIZATION. [code = CARDIOVASCULAR SYSTEM; RN TO ASSESS/TEACH, SPECIAL CERTIFICATE DICTATOR/DRAWING OPERATOR TO OBSERVE/TEACH RELATED TO ALTERED CARDIOVASCULAR STATUS TO MINIMIZE COMPLICATIONS AND REDUCE HOSPITALIZATION.] Future Scheduled Test HYPERTENSI ON MANAGEMENT; RN TO ASSESS AND TEACH, SPECIAL CERTIFICATE DICTATOR/DRAWING OPERATOR TO OBSERVE AND TEACH WARNING SIGNS AND SYMPTOMS TO AVOID HOSPITALIZATION. [code = HYPERTENSION MANAGEMENT; RN TO ASSESS AND TEACH, SPECIAL CERTIFICATE DICTATOR/DRAWING OPERATOR TO OBSERVE AND TEACH WARNING SIGNS AND SYMPTOMS TO AVOID HOSPITALIZATION.] Future Scheduled Test HEART FAIL URE MONITORING RN/DRAWING OPERATOR/SPECIAL CERTIFICATE DICTATOR TO MONITOR PATIENT FOR SIGNS AND SYMPTOMS OF HEART FAILURE EXACERBATION, MONITOR FOR ADHERENCE WITH MEDICATION AND HEART FAILURE MANAGEMENT REGIMEN. [code = HEART FAILURE MONITORING RN/DRAWING OPERATOR/SPECIAL CERTIFICATE DICTATOR TO MONITOR PATIENT FOR SIGNS AND SYMPTOMS OF HEART FAILURE EXACERBATION, MONITOR FOR ADHERENCE WITH MEDICATION AND HEART FAILURE MANAGEMENT REGIMEN.] Future Scheduled Test DIABETES M ONITORING RN/DRAWING OPERATOR/SPECIAL CERTIFICATE DICTATOR TO MONITOR BLOOD SUGAR LOG FOR BLOOD SUGAR READINGS THAT ARE BEING CHECKED BY PATIENT, CAREGIVER NEEDED FOR SIGNS AND SYMPTOMS OF HYPER/HYPOGLYCEMIA. PATIENT THERAPEUTIC BLOOD SUGAR PARAMETERS ARE 70 - 300. REPORT BLOOD SUGARS OUT OF RANGE TO PHYSICIAN. NURSE MAY PERFORM FINGER STICK BLOOD GLUCOSE NEEDED FOR SIGNS AND SYMPTOMS OF HYPO AND HYPERGLYCEMIA. RN/DRAWING OPERATOR/SPECIAL CERTIFICATE DICTATOR TO MONITOR ADHERENCE OF PATIENT/CAREGIVER PERFORMING DIABETIC FOOT CARE AND MAY PERFORM DIABETIC FOOT CARE PRN. RN/DRAWING OPERATOR/SPECIAL CERTIFICATE DICTATOR TO MONITOR FOR ADHERENCE TO DIABETIC SELF-CARE AND MANAGEMENT INCLUDING MEDICATIONS. [code = DIABETES MONITORING RN/DRAWING OPERATOR/SPECIAL CERTIFICATE DICTATOR TO MONITOR BLOOD SUGAR LOG FOR BLOOD SUGAR READINGS THAT ARE BEING CHECKED BY PATIENT, CAREGIVER NEEDED FOR SIGNS AND SYMPTOMS OF HYPER/HYPOGLYCEMIA. PATIENT THERAPEUTIC BLOOD SUGAR PARAMETERS ARE 70 - 300. REPORT BLOOD SUGARS OUT OF RANGE TO PHYSICIAN. NURSE MAY PERFORM FINGER STICK BLOOD GLUCOSE NEEDED FOR SIGNS AND SYMPTOMS OF HYPO AND HYPERGLYCEMIA. RN/DRAWING OPERATOR/SPECIAL CERTIFICATE DICTATOR TO MONITOR ADHERENCE OF PATIENT/CAREGIVER PERFORMING DIABETIC FOOT CARE AND MAY PERFORM DIABETIC FOOT CARE PRN. RN/DRAWING OPERATOR/SPECIAL CERTIFICATE DICTATOR TO MONITOR FOR ADHERENCE TO DIABETIC SELF-CARE AND MANAGEMENT INCLUDING MEDICATIONS.] Future Scheduled Test HYPOTENSIO N MANAGEMENT; RN TO ASSESS AND TEACH/ SPECIAL CERTIFICATE DICTATOR /DRAWING OPERATOR TO OBSERVE AND TEACH WARNING SIGNS AND SYMPTOMS TO AVOID HOSPITALIZATION. [code = HYPOTENSION MANAGEMENT; RN TO ASSESS AND TEACH/ SPECIAL CERTIFICATE DICTATOR /DRAWING OPERATOR TO OBSERVE AND TEACH WARNING SIGNS AND SYMPTOMS TO AVOID HOSPITALIZATION.] Future Scheduled Test ARRHYTHMIA MANAGEMENT; RN TO ASSESS AND TEACH, SPECIAL CERTIFICATE DICTATOR/DRAWING OPERATOR TO OBSERVE AND TEACH WARNING SIGNS AND SYMPTOMS TO AVOID HOSPITALIZATION. [code = ARRHYTHMIA MANAGEMENT; RN TO ASSESS AND TEACH, SPECIAL CERTIFICATE DICTATOR/DRAWING OPERATOR TO OBSERVE AND TEACH WARNING SIGNS AND SYMPTOMS TO AVOID HOSPITALIZATION.] Future Scheduled Test MEDICATION MANAGEMENT; RN/SPECIAL CERTIFICATE DICTATOR/DRAWING OPERATOR TO REVIEW MEDICATIONS FOR INTERACTIONS, EFFECTIVENESS OF DRUG THERAPY, AND SIGNS/SYMPTOMS OF ADVERSE REACTIONS. MAY INSTRUCT AND REINFORCE MEDICATION TEACHING RELATED TO THE USE OF MEDICATIONS, DOSAGE, FREQUENCY, PURPOSE, SIDE EFFECTS, AND TO REPORT COMPLICATIONS. [code = MEDICATION MANAGEMENT; RN/SPECIAL CERTIFICATE DICTATOR/DRAWING OPERATOR TO REVIEW MEDICATIONS FOR INTERACTIONS, EFFECTIVENESS [...] EVAL UATE, OBSERVE / ASSESS, AND MONITOR, BULB SORTER TO OBSERVE AND MONITOR, PROVIDE SKILLED THERAPEUTIC INTERVENTION, ACTIVITY, EDUCATION, AND TRAINING TO ADDRESS GEN. WEAKNESS, POOR OVERALL ACTIVITY TOLERANCE, AND FUNCTIONAL LIMITATIONS IMPACTING SAFETY AND INDEPENDENCE. BED MOBILITY (PT/BULB SORTER) PT/BULB SORTER TO PROVIDE GAIT TRAINING FOR IMPROVED MOBILITY AND /OR TO NORMALIZE GAIT PATTERN THERAPEUTIC EXERCISES AND ESTABLISHING A HOME EXERCISE PROGRAM (PT/BULB SORTER) PT/BULB SORTER TO PROVIDE STAIR TRAINING PT / BULB SORTER TO MONITOR AND EDUCATE ON OXYGEN SATURATION DURING ADLS/IADLS, NOTIFY PHYSICIAN AND/OR THE RN CLINICAL ABRASIVE MIXER HELPER FOR PHYSICIAN NOTIFICATION AND IF O2 SATS BELOW PHYSICIAN ORDERED PARAMETERS AFTER 10 MIN OF REST PT / BULB SORTER TO OBSERVE FOR EARLY SIGNS AND SYMPTOMS OF DEPRESSION OR DEPRESSION GETTING WORSE AND TO EDUCATE ON HOW TO FIND HELP. PT / BULB SORTER MAY EDUCATE ON PAIN MANAGEMENT CLINICALLY INDICATED, INCLUDING NON-PHARMACOLOGICAL PAIN REDUCTION TECHNIQUES PT / BULB SORTER TO MONITOR FOR HYPO/HYPERGLYCEMIA AND CONDUCT ROUTINE FOOT INSPECTIONS. RECORD PATIENT REPORTED BLOOD SUGAR LEVELS AND NOTIFY PHYSICIAN AND/OR THE RN CLINICAL ABRASIVE MIXER HELPER FOR PHYSICIAN NOTIFICATION IF BLOOD SUGAR LEVELS ARE OUTSIDE ORDERED PARAMETERS. TEACH PATIENT/CAREGIVER ON DAILY FOOT INSPECTIONS PT / BULB SORTER TO INSTRUCT PATIENT/CAREGIVER ON RISK FOR HOSPITALIZATION/EMERGENCY ROOM VISITS, TEACH SIGNS AND SYMPTOMS THAT PUT PATIENT AT RISK, WHEN TO NOTIFY NURSE/PHYSICIAN OF COMPLICATIONS/DECLINE, AND WHEN TO CALL 911. PT/BULB SORTER TO EDUCATE ON ARTHRITIS SELF-MANAGEMENT PT / BULB SORTER TO EDUCATE ON HEART FAILURE SELF-MANAGEMENT PT / BULB SORTER TO EDUCATE ON HYPERTENSION SELF-MANAGEMENT PT TO ASSESS / BULB SORTER TO MONITOR CARDIO/RESPIRATORY SYSTEM; AND NOTIFY THE PHYSICIAN AND/OR THE RN CLINICAL ABRASIVE MIXER HELPER FOR PHYSICIAN NOTIFICATION FOR EARLY SIGNS AND SYMPTOMS OF EXACERBATION OR DETERIORATION. PT / BULB SORTER TO EDUCATE ON ATRIAL FIBRILLATION SELF-MANAGEMENT. PT / BULB SORTER TO EDUCATE ON PNEUMONIA / ASPIRATION PNEUMONIA SELF-MANAGEMENT. PT/BULB SORTER TO IDENTIFY FALL RISK FACTORS; EDUCATE THE PATIENT/CAREGIVER ON WAYS TO REDUCE FALL RISK FACTORS AND ESTABLISH HOME EXERCISE PROGRAM TO MINIMIZE FALL RISK. MAY TEACH THE PATIENT FLOOR RECOVERY WHEN CLINICALLY APPROPRIATE [code = PT TO EVALUATE, OBSERVE / ASSESS, AND MONITOR, BULB SORTER TO OBSERVE AND MONITOR, PROVIDE SKILLED THERAPEUTIC INTERVENTION, ACTIVITY, EDUCATION, AND TRAINING TO ADDRESS GEN. WEAKNESS, POOR OVERALL ACTIVITY TOLERANCE, AND FUNCTIONAL LIMITATIONS IMPACTING SAFETY AND INDEPENDENCE. BED MOBILITY (PT/BULB SORTER) PT/BULB SORTER TO PROVIDE GAIT TRAINING FOR IMPROVED MOBILITY AND /OR TO NORMALIZE GAIT PATTERN THERAPEUTIC EXERCISES AND ESTABLISHING A HOME EXERCISE PROGRAM (PT/BULB SORTER) PT/BULB SORTER TO PROVIDE STAIR TRAINING PT / BULB SORTER TO MONITOR AND EDUCATE ON OXYGEN SATURATION DURING ADLS/IADLS, NOTIFY PHYSICIAN AND/OR THE RN CLINICAL ABRASIVE MIXER HELPER FOR PHYSICIAN NOTIFICATION AND IF O2 SATS BELOW PHYSICIAN ORDERED PARAMETERS AFTER 10 MIN OF REST PT / BULB SORTER TO OBSERVE FOR EARLY SIGNS AND SYMPTOMS OF DEPRESSION OR DEPRESSION GETTING WORSE AND TO EDUCATE ON HOW TO FIND HELP. PT / BULB SORTER MAY EDUCATE ON PAIN MANAGEMENT CLINICALLY INDICATED, INCLUDING NON-PHARMACOLOGICAL PAIN REDUCTION TECHNIQUES PT / BULB SORTER TO MONITOR FOR HYPO/HYPERGLYCEMIA AND CONDUCT ROUTINE FOOT INSPECTIONS. RECORD PATIENT REPORTED BLOOD SUGAR LEVELS AND NOTIFY PHYSICIAN AND/OR THE RN CLINICAL ABRASIVE MIXER HELPER FOR PHYSICIAN NOTIFICATION IF BLOOD SUGAR LEVELS ARE OUTSIDE ORDERED PARAMETERS. TEACH PATIENT/CAREGIVER ON DAILY FOOT INSPECTIONS PT / BULB SORTER TO INSTRUCT PATIENT/CAREGIVER ON RISK FOR HOSPITALIZATION/EMERGENCY ROOM VISITS, TEACH SIGNS AND SYMPTOMS THAT PUT PATIENT AT RISK, WHEN TO NOTIFY NURSE/PHYSICIAN OF COMPLICATIONS/DECLINE, AND WHEN TO CALL 911. PT/BULB SORTER TO EDUCATE ON ARTHRITIS SELF-MANAGEMENT PT / BULB SORTER TO EDUCATE ON HEART FAILURE SELF-MANAGEMENT PT / BULB SORTER TO EDUCATE ON HYPERTENSION SELF-MANAGEMENT PT TO ASSESS / BULB SORTER TO MONITOR CARDIO/RESPIRATORY SYSTEM; AND NOTIFY THE PHYSICIAN AND/OR THE RN CLINICAL ABRASIVE MIXER HELPER FOR PHYSICIAN NOTIFICATION FOR EARLY SIGNS AND SYMPTOMS OF EXACERBATION OR DETERIORATION. PT / BULB SORTER TO EDUCATE ON ATRIAL FIBRILLATION SELF-MANAGEMENT. PT / BULB SORTER TO EDUCATE ON PNEUMONIA / ASPIRATION PNEUMONIA SELF-MANAGEMENT. PT/BULB SORTER TO IDENTIFY FALL RISK FACTORS; EDUCATE THE PATIENT/CAREGIVER ON WAYS TO REDUCE FALL RISK FACTORS AND ESTABLISH HOME EXERCISE PROGRAM TO MINIMIZE FALL RISK. MAY TEACH THE PATIENT FLOOR RECOVERY WHEN CLINICALLY APPROPRIATE] Future Scheduled Test AGENCY MAY PERFORM A RESUMPTION OF CARE VISIT FOLLOWING ANY HOSPITAL ADMISSION. OT TO EVALUATE, OBSERVE / ASSESS, AND MONITOR, PUMPING STATION SUPERVISOR TO OBSERVE AND MONITOR, PROVIDE SKILLED THERAPEUTIC INTERVENTION, ACTIVITY, EDUCATION, AND TRAINING TO ADDRESS SAFETY AND INDEPENDENCE OF ADLS AND FUNCTIONAL TRANSFERS IN HOME ENVIRONMENT. ACTIVITIES OF DAILY LIVING (OT/MARIANNE) THERAPEUTIC EXERCISE (OT/PUMPING STATION SUPERVISOR) ENERGY CONSERVATION/ACTIVITY DEMAND (OT/PUMPING STATION SUPERVISOR) OT/PUMPING STATION SUPERVISOR TO MONITOR AND EDUCATE ON OXYGEN SATURATION DURING ADLS/IADLS, NOTIFY PHYSICIAN AND/OR THE RN CLINICAL ABRASIVE MIXER HELPER FOR PHYSICIAN NOTIFICATION AND IF O2 SATS BELOW 90% AFTER 10 MIN OF REST. OT / PUMPING STATION SUPERVISOR TO IDENTIFY FALL RISK FACTORS; EDUCATE THE PATIENT/CAREGIVER ON WAYS TO REDUCE FALL RISK FACTORS AND ESTABLISH HOME EXERCISE PROGRAM TO MINIMIZE FALL RISK. MAY TEACH THE PATIENT FLOOR RECOVERY WHEN CLINICALLY APPROPRIATE. OT/PUMPING STATION SUPERVISOR TO EDUCATE ON HYPERTENSION SELF-MANAGEMENT OT/MARIANNE TO EDUCATE ON ATRIAL FIBRILLATION SELF-MANAGEMENT. [code = AGENCY MAY PERFORM A RESUMPTION OF CARE VISIT FOLLOWING ANY HOSPITAL ADMISSION. OT TO EVALUATE, OBSERVE / ASSESS, AND MONITOR, PUMPING STATION SUPERVISOR TO OBSERVE AND MONITOR, PROVIDE SKILLED THERAPEUTIC INTERVENTION, ACTIVITY, EDUCATION, AND TRAINING TO ADDRESS SAFETY AND INDEPENDENCE OF ADLS AND FUNCTIONAL TRANSFERS IN HOME ENVIRONMENT. ACTIVITIES OF DAILY LIVING (OT/MARIANNE) THERAPEUTIC EXERCISE (OT/PUMPING STATION SUPERVISOR) ENERGY CONSERVATION/ACTIVITY DEMAND (OT/MARIANNE) OT/PUMPING STATION SUPERVISOR TO MONITOR AND EDUCATE ON OXYGEN SATURATION DURING ADLS/IADLS, NOTIFY PHYSICIAN AND/OR THE RN CLINICAL ABRASIVE MIXER HELPER FOR PHYSICIAN NOTIFICATION AND IF O2 SATS BELOW 90% AFTER 10 MIN OF REST. OT / MARIANNE TO IDENTIFY FALL RISK FACTORS; EDUCATE THE PATIENT/CAREGIVER ON WAYS TO REDUCE FALL RISK FACTORS AND ESTABLISH HOME EXERCISE PROGRAM TO MINIMIZE FALL RISK. MAY TEACH THE PATIENT FLOOR RECOVERY WHEN CLINICALLY APPROPRIATE. OT/PUMPING STATION SUPERVISOR TO EDUCATE ON HYPERTENSION SELF-MANAGEMENT OT/MARIANNE [...] End Date/Time Encounter Type Admission Type Attending [facility] Care Department Encounter ID Discharge Date Discharge Status Discharge Condition Discharge Reason Percent Goals Met 2025-02-07 00:00:00 2025-04-07 00:00:00 Outpatient NEW ADMISSION [facility] [id number] 26.42
--- OUTSIDE RECORDS SUMMARY | 2025-04-06 18:00 | XMS_ITS | Clinical Summary ---
Author Organization Unknown Care Team Providers Care Gang Tailer Name Role Phone DIGNA ARIEL, ESTRELLA Unavailable Unava dinora STOKES RN, FRANKIE Unavailable Unavailabl e KARI PT, DIDI Unavailable Unavailable NAT OUTREACH AND EDUCATION SOCIAL WORKER, GAUDENCIO Unavailable Unavailabl e RADHA OT, ROLANDO Unavailable Unavailable JOANNE STEVEN, HATTIE Unavailable Unavailable Payers Payer Name Policy Type Policy Number Effective Date Expira tion Date MEDICARE.[facility] [id number] Problems Condition Name Condition Details Condition Category Status Onset Date Resolution Date Last Treatment Date Treating Clinician Comments 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: 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 [...] OF PNEUMONIA (RECURRENT) Active 02-07 00:00: 00 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 (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) USE OF SYSTEMIC STEROIDS Active 02-07 [...] 80 mg tablet 02-07 00:00: 00 Yes [id number] CHOLESTEROL 1 tablet DAILY 1 tablet DAILY (route: oral) Med Classific ation: Cardiovas cular Therapy Agents digoxin 125 mcg (0.125 mg) tablet 02-07 00:00: 00 02-21 23:59 :00 No [id number] HEART RHYTHM 1 tablet DAILY 1 tablet DAILY (route: oral) Med Classific ation: Cardiovas cular Therapy Agents escitalopra m 10 mg tablet 02-07 00:00: 00 Yes [id number] MOOD 1 tablet DAILY 1 tablet DAILY (route: oral) Med Classific ation: Central Nervous System Agents ezetimibe 10 mg tablet 02-07 00:00: 00 Yes [id number] CHOLESTEROL 1 tablet DAILY 1 tablet DAILY (route: oral) Med Classific ation: Cardiovas cular Therapy Agents metoprolol succinate ER 25 mg tablet,exte nded release 24 hr 02-07 00:00: 00 02-21 23:59 :00 No [id number] BLOOD PRESSURE 0.5 tablet DAILY 0.5 tablet DAILY (route: oral) Med Classific ation: Cardiovas cular Therapy Agents pantoprazol e 40 mg tablet,joão yed release 02-07 00:00: 00 02-21 23:59 :00 No [id number] STOMACH ACID 1 tablet DAILY 1 tablet DAILY (route: oral) Med Classific ation: Gastroint estinal Therapy Agents prednisone 5 mg tablet 02-07 00:00: 00 Yes [id number] ADRENAL INSUFFICIEN CY 1 tablet DAILY 1 tablet DAILY (route: oral) Med Classific ation: Endocrine spironolact one 25 mg tablet 02-07 00:00: 00 Yes [id number] FLUID RETENTION 0.5 tablet DAILY 0.5 tablet DAILY (route: oral) Med Classific ation: Cardiovas cular Therapy Agents tamsulosin 0.4 mg capsule 02-07 00:00: 00 02-21 23:59 :00 No [id number] URINARY HEALTH 1 capsule DAILY 1 capsule DAILY (route: oral) Med Classific ation: Genitouri nary Therapy acetaminoph en 325 mg tablet 2024-05 00:00: 00 Yes [id number] PAIN 2 tablet 2 TIMES DAILY 2 tablet 2 TIMES DAILY (route: oral) Med Classific ation: Analgesic , Anti-infl ammatory or Antipyret ic aspirin 81 mg tablet 2024-05 00:00: 00 Yes [id number] ANTICOAGULA NT 1 tablet DAILY 1 tablet DAILY (route: oral) Med Classific ation: Hematolog ical Agents ipratropium 0.5 mg-albutero l 3 mg (2.5 mg base)/3 mL nebulizatio n soln 2024-05 00:00: 00 Yes [id number] COPD 3 mL EVERY 6 HOURS 3 mL EVERY 6 HOURS (route: inhalation ) Med Classific ation: Respirato ry Therapy Agents Lanoxin 62.5 mcg (0.0625 mg) tablet 2024-05 00:00: 00 Yes [id number] CHF 1 tablet DAILY 1 tablet DAILY (route: oral) Med Classific ation: Cardiovas cular Therapy Agents Lasix 20 mg tablet 2024-05 00:00: 00 Yes [id number] CHF 1 tablet DAILY 1 tablet DAILY (route: oral) Med Classific ation: Cardiovas cular Therapy Agents Toprol XL 25 mg tablet,exte nded release 2024-05 00:00: 00 Yes [id number] BP 25 mg DAILY 25 mg DAILY [...] SYSTEM MANAGEMENT; RN TO ASSESS AND TEACH, DAIRY DEPARTMENT MANAGER/UROLOGY PHYSICIAN ASSISTANT TO OBSERVE AND TEACH RELATED TO ALTERED RESPIRATORY STATUS TO MINIMIZE COMPLICATIONS AND REDUCE HOSPITALIZATION. [code = SN 1WK9 PT 1WK1 OT EFFECTIVE 02/10/2025K1 RESPIRATORY SYSTEM MANAGEMENT; RN TO ASSESS AND TEACH, DAIRY DEPARTMENT MANAGER/UROLOGY PHYSICIAN ASSISTANT TO OBSERVE AND TEACH RELATED TO ALTERED RESPIRATORY STATUS TO MINIMIZE COMPLICATIONS AND REDUCE HOSPITALIZATION.] Future Scheduled Test TRACHEOSTO MY CARE MANAGEMENT; RN/DAIRY DEPARTMENT MANAGER/UROLOGY PHYSICIAN ASSISTANT TO INSTRUCT PATIENT/CAREGIVER ON CARE AND MANAGEMENT OF TRACHEOSTOMY. RN/ DAIRY DEPARTMENT MANAGER/UROLOGY PHYSICIAN ASSISTANT TO PROVIDE SKILLED TEACHING ON TRACH COLLAR SUCTIONING PRN WITH 14 FR SUCTION CATHETER PER PATIENT TRACH CARE WITH INNER CANNULA: REMOVE INNER CANNULA, CLEANSE WITH NORMAL SALINE AND OR STERILE WATER AND REINSERT NON-DISPOSABLE CANNULA SIZE OF INNER CANNULA 5 BROOKS [code = TRACHEOSTOMY CARE MANAGEMENT; RN/DAIRY DEPARTMENT MANAGER/UROLOGY PHYSICIAN ASSISTANT TO INSTRUCT PATIENT/CAREGIVER ON CARE AND MANAGEMENT OF TRACHEOSTOMY. RN/ DAIRY DEPARTMENT MANAGER/UROLOGY PHYSICIAN ASSISTANT TO PROVIDE SKILLED TEACHING ON TRACH COLLAR SUCTIONING PRN WITH 14 FR SUCTION CATHETER PER PATIENT TRACH CARE WITH INNER CANNULA: REMOVE INNER CANNULA, CLEANSE WITH NORMAL SALINE AND OR STERILE WATER AND REINSERT NON-DISPOSABLE CANNULA SIZE OF INNER CANNULA 5 BROOKS] Future Scheduled Test FALL REDUC TION MANAGEMENT; RN TO ASSESS AND OBSERVE, DAIRY DEPARTMENT MANAGER/UROLOGY PHYSICIAN ASSISTANT TO OBSERVE FALL RISK FACTORS AND EDUCATE PATIENT/CAREGIVER ON STRATEGIES TO MINIMIZE THE RISK OF FALLING. [code = FALL REDUCTION MANAGEMENT; RN TO ASSESS AND OBSERVE, DAIRY DEPARTMENT MANAGER/UROLOGY PHYSICIAN ASSISTANT TO OBSERVE FALL RISK FACTORS AND EDUCATE PATIENT/CAREGIVER ON STRATEGIES TO MINIMIZE THE RISK OF FALLING.] Future Scheduled Test ANEMIA MAN AGEMENT; RN TO ASSESS AND TEACH, UROLOGY PHYSICIAN ASSISTANT/DAIRY DEPARTMENT MANAGER TO OBSERVE AND TEACH AND PROVIDE EDUCATION ON ANEMIA. [code = ANEMIA MANAGEMENT; RN TO ASSESS AND TEACH, UROLOGY PHYSICIAN ASSISTANT/DAIRY DEPARTMENT MANAGER TO OBSERVE AND TEACH AND PROVIDE EDUCATION ON ANEMIA.] Future Scheduled Test RN TO OBSE RVE, ASSESS, EVALUATE, AND DEVELOP AN INDIVIDUALIZED PLAN OF CARE. AGENCY MAY ACCEPT ORDERS FROM CONSULTING PHYSICIANS RN TO OBSERVE AND ASSESS, DAIRY DEPARTMENT MANAGER/UROLOGY PHYSICIAN ASSISTANT TO OBSERVE FOR RISK FOR FALLS AND INSTRUCT IN FALL PREVENTION, HOME SAFETY, MEDICATION MANAGEMENT, INFECTION PREVENTION, AND NUTRITION MANAGEMENT. RN/DAIRY DEPARTMENT MANAGER/UROLOGY PHYSICIAN ASSISTANT NURSE MAY PERFORM O2 SATURATION LEVEL ON ADMISSION AND PRN FOR RN TO ASSESS/DAIRY DEPARTMENT MANAGER TO OBSERVE PATIENT, WITH NOTIFICATION TO THE PHYSICIAN IF SATURATION IS 90% IN THE ABSENCE OF MORE SPECIFIC PARAMETERS FROM THE PHYSICIAN. AGENCY MAY PERFORM A RESUMPTION OF CARE VISIT FOLLOWING ANY HOSPITAL ADMISSION. RN/DAIRY DEPARTMENT MANAGER/UROLOGY PHYSICIAN ASSISTANT TO MONITOR CO-MORBID CONDITIONS LISTED ON THE PLAN OF CARE AND ANY NEW CONDITIONS THAT PRESENT THEMSELVES DURING THIS EPISODE TO IDENTIFY CHANGES AND INTERVENE TO MINIMIZE COMPLICATIONS. [code = RN TO OBSERVE, ASSESS, EVALUATE, AND DEVELOP AN INDIVIDUALIZED PLAN OF CARE. AGENCY MAY ACCEPT ORDERS FROM CONSULTING PHYSICIANS RN TO OBSERVE AND ASSESS, DAIRY DEPARTMENT MANAGER/UROLOGY PHYSICIAN ASSISTANT TO OBSERVE FOR RISK FOR FALLS AND INSTRUCT IN FALL PREVENTION, HOME SAFETY, MEDICATION MANAGEMENT, INFECTION PREVENTION, AND NUTRITION MANAGEMENT. RN/DAIRY DEPARTMENT MANAGER/UROLOGY PHYSICIAN ASSISTANT NURSE MAY PERFORM O2 SATURATION LEVEL ON ADMISSION AND PRN FOR RN TO ASSESS/DAIRY DEPARTMENT MANAGER TO OBSERVE PATIENT, WITH NOTIFICATION TO THE PHYSICIAN IF SATURATION IS 90% IN THE ABSENCE OF MORE SPECIFIC PARAMETERS FROM THE PHYSICIAN. AGENCY MAY PERFORM A RESUMPTION OF CARE VISIT FOLLOWING ANY HOSPITAL ADMISSION. RN/DAIRY DEPARTMENT MANAGER/UROLOGY PHYSICIAN ASSISTANT TO MONITOR CO-MORBID CONDITIONS LISTED ON THE PLAN OF CARE AND ANY NEW CONDITIONS THAT PRESENT THEMSELVES DURING THIS EPISODE TO IDENTIFY CHANGES AND INTERVENE TO MINIMIZE COMPLICATIONS.] Future Scheduled Test PAIN MANAG EMENT; RN TO ASSESS AND TEACH, UROLOGY PHYSICIAN ASSISTANT/DAIRY DEPARTMENT MANAGER TO OBSERVE AND TEACH AND PROVIDE EDUCATION ON PAIN MANAGEMENT TECHNIQUES. [code = PAIN MANAGEMENT; RN TO ASSESS AND TEACH, UROLOGY PHYSICIAN ASSISTANT/DAIRY DEPARTMENT MANAGER TO OBSERVE AND TEACH AND PROVIDE EDUCATION ON PAIN MANAGEMENT TECHNIQUES.] Future Scheduled Test RISK FOR H OSPITALIZATION; RN TO ASSESS/TEACH, UROLOGY PHYSICIAN ASSISTANT/DAIRY DEPARTMENT MANAGER TO OBSERVE/TEACH PATIENT/CAREGIVER ON RISK FOR HOSPITALIZATION/EMERGENCY ROOM VISITS, TEACH SIGNS AND SYMPTOMS THAT PUT PATIENT AT RISK, WHEN TO NOTIFY NURSE/PHYSICIAN OF COMPLICATIONS/DECLINE, AND WHEN TO CALL 911. [code = RISK FOR HOSPITALIZATION; RN TO ASSESS/TEACH, UROLOGY PHYSICIAN ASSISTANT/DAIRY DEPARTMENT MANAGER TO OBSERVE/TEACH PATIENT/CAREGIVER ON RISK FOR HOSPITALIZATION/EMERGENCY ROOM VISITS, TEACH SIGNS AND SYMPTOMS THAT PUT PATIENT AT RISK, WHEN TO NOTIFY NURSE/PHYSICIAN OF COMPLICATIONS/DECLINE, AND WHEN TO CALL 911.] Future Scheduled Test CARDIOVASC ULAR SYSTEM; RN TO ASSESS/TEACH, DAIRY DEPARTMENT MANAGER/UROLOGY PHYSICIAN ASSISTANT TO OBSERVE/TEACH RELATED TO ALTERED CARDIOVASCULAR STATUS TO MINIMIZE COMPLICATIONS AND REDUCE HOSPITALIZATION. [code = CARDIOVASCULAR SYSTEM; RN TO ASSESS/TEACH, DAIRY DEPARTMENT MANAGER/UROLOGY PHYSICIAN ASSISTANT TO OBSERVE/TEACH RELATED TO ALTERED CARDIOVASCULAR STATUS TO MINIMIZE COMPLICATIONS AND REDUCE HOSPITALIZATION.] Future Scheduled Test HYPERTENSI ON MANAGEMENT; RN TO ASSESS AND TEACH, DAIRY DEPARTMENT MANAGER/UROLOGY PHYSICIAN ASSISTANT TO OBSERVE AND TEACH WARNING SIGNS AND SYMPTOMS TO AVOID HOSPITALIZATION. [code = HYPERTENSION MANAGEMENT; RN TO ASSESS AND TEACH, DAIRY DEPARTMENT MANAGER/UROLOGY PHYSICIAN ASSISTANT TO OBSERVE AND TEACH WARNING SIGNS AND SYMPTOMS TO AVOID HOSPITALIZATION.] Future Scheduled Test HEART FAIL URE MONITORING RN/UROLOGY PHYSICIAN ASSISTANT/DAIRY DEPARTMENT MANAGER TO MONITOR PATIENT FOR SIGNS AND SYMPTOMS OF HEART FAILURE EXACERBATION, MONITOR FOR ADHERENCE WITH MEDICATION AND HEART FAILURE MANAGEMENT REGIMEN. [code = HEART FAILURE MONITORING RN/UROLOGY PHYSICIAN ASSISTANT/DAIRY DEPARTMENT MANAGER TO MONITOR PATIENT FOR SIGNS AND SYMPTOMS OF HEART FAILURE EXACERBATION, MONITOR FOR ADHERENCE WITH MEDICATION AND HEART FAILURE MANAGEMENT REGIMEN.] Future Scheduled Test DIABETES M ONITORING RN/UROLOGY PHYSICIAN ASSISTANT/DAIRY DEPARTMENT MANAGER TO MONITOR BLOOD SUGAR LOG FOR BLOOD SUGAR READINGS THAT ARE BEING CHECKED BY PATIENT, CAREGIVER NEEDED FOR SIGNS AND SYMPTOMS OF HYPER/HYPOGLYCEMIA. PATIENT THERAPEUTIC BLOOD SUGAR PARAMETERS ARE 70 - 300. REPORT BLOOD SUGARS OUT OF RANGE TO PHYSICIAN. NURSE MAY PERFORM FINGER STICK BLOOD GLUCOSE NEEDED FOR SIGNS AND SYMPTOMS OF HYPO AND HYPERGLYCEMIA. RN/UROLOGY PHYSICIAN ASSISTANT/DAIRY DEPARTMENT MANAGER TO MONITOR ADHERENCE OF PATIENT/CAREGIVER PERFORMING DIABETIC FOOT CARE AND MAY PERFORM DIABETIC FOOT CARE PRN. RN/UROLOGY PHYSICIAN ASSISTANT/DAIRY DEPARTMENT MANAGER TO MONITOR FOR ADHERENCE TO DIABETIC SELF-CARE AND MANAGEMENT INCLUDING MEDICATIONS. [code = DIABETES MONITORING RN/UROLOGY PHYSICIAN ASSISTANT/DAIRY DEPARTMENT MANAGER TO MONITOR BLOOD SUGAR LOG FOR BLOOD SUGAR READINGS THAT ARE BEING CHECKED BY PATIENT, CAREGIVER NEEDED FOR SIGNS AND SYMPTOMS OF HYPER/HYPOGLYCEMIA. PATIENT THERAPEUTIC BLOOD SUGAR PARAMETERS ARE 70 - 300. REPORT BLOOD SUGARS OUT OF RANGE TO PHYSICIAN. NURSE MAY PERFORM FINGER STICK BLOOD GLUCOSE NEEDED FOR SIGNS AND SYMPTOMS OF HYPO AND HYPERGLYCEMIA. RN/UROLOGY PHYSICIAN ASSISTANT/DAIRY DEPARTMENT MANAGER TO MONITOR ADHERENCE OF PATIENT/CAREGIVER PERFORMING DIABETIC FOOT CARE AND MAY PERFORM DIABETIC FOOT CARE PRN. RN/UROLOGY PHYSICIAN ASSISTANT/DAIRY DEPARTMENT MANAGER TO MONITOR FOR ADHERENCE TO DIABETIC SELF-CARE AND MANAGEMENT INCLUDING MEDICATIONS.] Future Scheduled Test HYPOTENSIO N MANAGEMENT; RN TO ASSESS AND TEACH/ DAIRY DEPARTMENT MANAGER /UROLOGY PHYSICIAN ASSISTANT TO OBSERVE AND TEACH WARNING SIGNS AND SYMPTOMS TO AVOID HOSPITALIZATION. [code = HYPOTENSION MANAGEMENT; RN TO ASSESS AND TEACH/ DAIRY DEPARTMENT MANAGER /UROLOGY PHYSICIAN ASSISTANT TO OBSERVE AND TEACH WARNING SIGNS AND SYMPTOMS TO AVOID HOSPITALIZATION.] Future Scheduled Test ARRHYTHMIA MANAGEMENT; RN TO ASSESS AND TEACH, DAIRY DEPARTMENT MANAGER/UROLOGY PHYSICIAN ASSISTANT TO OBSERVE AND TEACH WARNING SIGNS AND SYMPTOMS TO AVOID HOSPITALIZATION. [code = ARRHYTHMIA MANAGEMENT; RN TO ASSESS AND TEACH, DAIRY DEPARTMENT MANAGER/UROLOGY PHYSICIAN ASSISTANT TO OBSERVE AND TEACH WARNING SIGNS AND SYMPTOMS TO AVOID HOSPITALIZATION.] Future Scheduled Test MEDICATION MANAGEMENT; RN/DAIRY DEPARTMENT MANAGER/UROLOGY PHYSICIAN ASSISTANT TO REVIEW MEDICATIONS FOR INTERACTIONS, EFFECTIVENESS OF DRUG THERAPY, AND SIGNS/SYMPTOMS OF ADVERSE REACTIONS. MAY INSTRUCT AND REINFORCE MEDICATION TEACHING RELATED TO THE USE OF MEDICATIONS, DOSAGE, FREQUENCY, PURPOSE, SIDE EFFECTS, AND TO REPORT COMPLICATIONS. [code = MEDICATION MANAGEMENT; RN/DAIRY DEPARTMENT MANAGER/UROLOGY PHYSICIAN ASSISTANT TO REVIEW MEDICATIONS FOR INTERACTIONS, EFFECTIVENESS OF [...] EVAL UATE, OBSERVE / ASSESS, AND MONITOR, OUTREACH AND EDUCATION SOCIAL WORKER TO OBSERVE AND MONITOR, PROVIDE SKILLED THERAPEUTIC INTERVENTION, ACTIVITY, EDUCATION, AND TRAINING TO ADDRESS GEN. WEAKNESS, POOR OVERALL ACTIVITY TOLERANCE, AND FUNCTIONAL LIMITATIONS IMPACTING SAFETY AND INDEPENDENCE. BED MOBILITY (PT/OUTREACH AND EDUCATION SOCIAL WORKER) PT/OUTREACH AND EDUCATION SOCIAL WORKER TO PROVIDE GAIT TRAINING FOR IMPROVED MOBILITY AND /OR TO NORMALIZE GAIT PATTERN THERAPEUTIC EXERCISES AND ESTABLISHING A HOME EXERCISE PROGRAM (PT/OUTREACH AND EDUCATION SOCIAL WORKER) PT/OUTREACH AND EDUCATION SOCIAL WORKER TO PROVIDE STAIR TRAINING PT / OUTREACH AND EDUCATION SOCIAL WORKER TO MONITOR AND EDUCATE ON OXYGEN SATURATION DURING ADLS/IADLS, NOTIFY PHYSICIAN AND/OR THE RN CLINICAL MANUFACTURING MILLWRIGHT FOR PHYSICIAN NOTIFICATION AND IF O2 SATS BELOW PHYSICIAN ORDERED PARAMETERS AFTER 10 MIN OF REST PT / OUTREACH AND EDUCATION SOCIAL WORKER TO OBSERVE FOR EARLY SIGNS AND SYMPTOMS OF DEPRESSION OR DEPRESSION GETTING WORSE AND TO EDUCATE ON HOW TO FIND HELP. PT / OUTREACH AND EDUCATION SOCIAL WORKER MAY EDUCATE ON PAIN MANAGEMENT CLINICALLY INDICATED, INCLUDING NON-PHARMACOLOGICAL PAIN REDUCTION TECHNIQUES PT / OUTREACH AND EDUCATION SOCIAL WORKER TO MONITOR FOR HYPO/HYPERGLYCEMIA AND CONDUCT ROUTINE FOOT INSPECTIONS. RECORD PATIENT REPORTED BLOOD SUGAR LEVELS AND NOTIFY PHYSICIAN AND/OR THE RN CLINICAL MANUFACTURING MILLWRIGHT FOR PHYSICIAN NOTIFICATION IF BLOOD SUGAR LEVELS ARE OUTSIDE ORDERED PARAMETERS. TEACH PATIENT/CAREGIVER ON DAILY FOOT INSPECTIONS PT / OUTREACH AND EDUCATION SOCIAL WORKER TO INSTRUCT PATIENT/CAREGIVER ON RISK FOR HOSPITALIZATION/EMERGENCY ROOM VISITS, TEACH SIGNS AND SYMPTOMS THAT PUT PATIENT AT RISK, WHEN TO NOTIFY NURSE/PHYSICIAN OF COMPLICATIONS/DECLINE, AND WHEN TO CALL 911. PT/OUTREACH AND EDUCATION SOCIAL WORKER TO EDUCATE ON ARTHRITIS SELF-MANAGEMENT PT / OUTREACH AND EDUCATION SOCIAL WORKER TO EDUCATE ON HEART FAILURE SELF-MANAGEMENT PT / OUTREACH AND EDUCATION SOCIAL WORKER TO EDUCATE ON HYPERTENSION SELF-MANAGEMENT PT TO ASSESS / OUTREACH AND EDUCATION SOCIAL WORKER TO MONITOR CARDIO/RESPIRATORY SYSTEM; AND NOTIFY THE PHYSICIAN AND/OR THE RN CLINICAL MANUFACTURING MILLWRIGHT FOR PHYSICIAN NOTIFICATION FOR EARLY SIGNS AND SYMPTOMS OF EXACERBATION OR DETERIORATION. PT / OUTREACH AND EDUCATION SOCIAL WORKER TO EDUCATE ON ATRIAL FIBRILLATION SELF-MANAGEMENT. PT / OUTREACH AND EDUCATION SOCIAL WORKER TO EDUCATE ON PNEUMONIA / ASPIRATION PNEUMONIA SELF-MANAGEMENT. PT/OUTREACH AND EDUCATION SOCIAL WORKER TO IDENTIFY FALL RISK FACTORS; EDUCATE THE PATIENT/CAREGIVER ON WAYS TO REDUCE FALL RISK FACTORS AND ESTABLISH HOME EXERCISE PROGRAM TO MINIMIZE FALL RISK. MAY TEACH THE PATIENT FLOOR RECOVERY WHEN CLINICALLY APPROPRIATE [code = PT TO EVALUATE, OBSERVE / ASSESS, AND MONITOR, OUTREACH AND EDUCATION SOCIAL WORKER TO OBSERVE AND MONITOR, PROVIDE SKILLED THERAPEUTIC INTERVENTION, ACTIVITY, EDUCATION, AND TRAINING TO ADDRESS GEN. WEAKNESS, POOR OVERALL ACTIVITY TOLERANCE, AND FUNCTIONAL LIMITATIONS IMPACTING SAFETY AND INDEPENDENCE. BED MOBILITY (PT/OUTREACH AND EDUCATION SOCIAL WORKER) PT/OUTREACH AND EDUCATION SOCIAL WORKER TO PROVIDE GAIT TRAINING FOR IMPROVED MOBILITY AND /OR TO NORMALIZE GAIT PATTERN THERAPEUTIC EXERCISES AND ESTABLISHING A HOME EXERCISE PROGRAM (PT/OUTREACH AND EDUCATION SOCIAL WORKER) PT/OUTREACH AND EDUCATION SOCIAL WORKER TO PROVIDE STAIR TRAINING PT / OUTREACH AND EDUCATION SOCIAL WORKER TO MONITOR AND EDUCATE ON OXYGEN SATURATION DURING ADLS/IADLS, NOTIFY PHYSICIAN AND/OR THE RN CLINICAL MANUFACTURING MILLWRIGHT FOR PHYSICIAN NOTIFICATION AND IF O2 SATS BELOW PHYSICIAN ORDERED PARAMETERS AFTER 10 MIN OF REST PT / OUTREACH AND EDUCATION SOCIAL WORKER TO OBSERVE FOR EARLY SIGNS AND SYMPTOMS OF DEPRESSION OR DEPRESSION GETTING WORSE AND TO EDUCATE ON HOW TO FIND HELP. PT / OUTREACH AND EDUCATION SOCIAL WORKER MAY EDUCATE ON PAIN MANAGEMENT CLINICALLY INDICATED, INCLUDING NON-PHARMACOLOGICAL PAIN REDUCTION TECHNIQUES PT / OUTREACH AND EDUCATION SOCIAL WORKER TO MONITOR FOR HYPO/HYPERGLYCEMIA AND CONDUCT ROUTINE FOOT INSPECTIONS. RECORD PATIENT REPORTED BLOOD SUGAR LEVELS AND NOTIFY PHYSICIAN AND/OR THE RN CLINICAL MANUFACTURING MILLWRIGHT FOR PHYSICIAN NOTIFICATION IF BLOOD SUGAR LEVELS ARE OUTSIDE ORDERED PARAMETERS. TEACH PATIENT/CAREGIVER ON DAILY FOOT INSPECTIONS PT / OUTREACH AND EDUCATION SOCIAL WORKER TO INSTRUCT PATIENT/CAREGIVER ON RISK FOR HOSPITALIZATION/EMERGENCY ROOM VISITS, TEACH SIGNS AND SYMPTOMS THAT PUT PATIENT AT RISK, WHEN TO NOTIFY NURSE/PHYSICIAN OF COMPLICATIONS/DECLINE, AND WHEN TO CALL 911. PT/OUTREACH AND EDUCATION SOCIAL WORKER TO EDUCATE ON ARTHRITIS SELF-MANAGEMENT PT / OUTREACH AND EDUCATION SOCIAL WORKER TO EDUCATE ON HEART FAILURE SELF-MANAGEMENT PT / OUTREACH AND EDUCATION SOCIAL WORKER TO EDUCATE ON HYPERTENSION SELF-MANAGEMENT PT TO ASSESS / OUTREACH AND EDUCATION SOCIAL WORKER TO MONITOR CARDIO/RESPIRATORY SYSTEM; AND NOTIFY THE PHYSICIAN AND/OR THE RN CLINICAL MANUFACTURING MILLWRIGHT FOR PHYSICIAN NOTIFICATION FOR EARLY SIGNS AND SYMPTOMS OF EXACERBATION OR DETERIORATION. PT / OUTREACH AND EDUCATION SOCIAL WORKER TO EDUCATE ON ATRIAL FIBRILLATION SELF-MANAGEMENT. PT / OUTREACH AND EDUCATION SOCIAL WORKER TO EDUCATE ON PNEUMONIA / ASPIRATION PNEUMONIA SELF-MANAGEMENT. PT/OUTREACH AND EDUCATION SOCIAL WORKER TO IDENTIFY FALL RISK FACTORS; EDUCATE THE PATIENT/CAREGIVER ON WAYS TO REDUCE FALL RISK FACTORS AND ESTABLISH HOME EXERCISE PROGRAM TO MINIMIZE FALL RISK. MAY TEACH THE PATIENT FLOOR RECOVERY WHEN CLINICALLY APPROPRIATE] Future Scheduled Test AGENCY MAY PERFORM A RESUMPTION OF CARE VISIT FOLLOWING ANY HOSPITAL ADMISSION. OT TO EVALUATE, OBSERVE / ASSESS, AND MONITOR, ADHESIVE BANDAGE MAKING OPERATOR TO OBSERVE AND MONITOR, PROVIDE SKILLED THERAPEUTIC INTERVENTION, ACTIVITY, EDUCATION, AND TRAINING TO ADDRESS SAFETY AND INDEPENDENCE OF ADLS AND FUNCTIONAL TRANSFERS IN HOME ENVIRONMENT. ACTIVITIES OF DAILY LIVING (OT/MARIANNE) THERAPEUTIC EXERCISE (OT/ADHESIVE BANDAGE MAKING OPERATOR) ENERGY CONSERVATION/ACTIVITY DEMAND (OT/ADHESIVE BANDAGE MAKING OPERATOR) OT/ADHESIVE BANDAGE MAKING OPERATOR TO MONITOR AND EDUCATE ON OXYGEN SATURATION DURING ADLS/IADLS, NOTIFY PHYSICIAN AND/OR THE RN CLINICAL MANUFACTURING MILLWRIGHT FOR PHYSICIAN NOTIFICATION AND IF O2 SATS BELOW 90% AFTER 10 MIN OF REST. OT / ADHESIVE BANDAGE MAKING OPERATOR TO IDENTIFY FALL RISK FACTORS; EDUCATE THE PATIENT/CAREGIVER ON WAYS TO REDUCE FALL RISK FACTORS AND ESTABLISH HOME EXERCISE PROGRAM TO MINIMIZE FALL RISK. MAY TEACH THE PATIENT FLOOR RECOVERY WHEN CLINICALLY APPROPRIATE. OT/ADHESIVE BANDAGE MAKING OPERATOR TO EDUCATE ON HYPERTENSION SELF-MANAGEMENT OT/MARIANNE TO EDUCATE ON ATRIAL FIBRILLATION SELF-MANAGEMENT. [code = AGENCY MAY PERFORM A RESUMPTION OF CARE VISIT FOLLOWING ANY HOSPITAL ADMISSION. OT TO EVALUATE, OBSERVE / ASSESS, AND MONITOR, ADHESIVE BANDAGE MAKING OPERATOR TO OBSERVE AND MONITOR, PROVIDE SKILLED THERAPEUTIC INTERVENTION, ACTIVITY, EDUCATION, AND TRAINING TO ADDRESS SAFETY AND INDEPENDENCE OF ADLS AND FUNCTIONAL TRANSFERS IN HOME ENVIRONMENT. ACTIVITIES OF DAILY LIVING (OT/MARIANNE) THERAPEUTIC EXERCISE (OT/ADHESIVE BANDAGE MAKING OPERATOR) ENERGY CONSERVATION/ACTIVITY DEMAND (OT/MARIANNE) OT/ADHESIVE BANDAGE MAKING OPERATOR TO MONITOR AND EDUCATE ON OXYGEN SATURATION DURING ADLS/IADLS, NOTIFY PHYSICIAN AND/OR THE RN CLINICAL MANUFACTURING MILLWRIGHT FOR PHYSICIAN NOTIFICATION AND IF O2 SATS BELOW 90% AFTER 10 MIN OF REST. OT / MARIANNE TO IDENTIFY FALL RISK FACTORS; EDUCATE THE PATIENT/CAREGIVER ON WAYS TO REDUCE FALL RISK FACTORS AND ESTABLISH HOME EXERCISE PROGRAM TO MINIMIZE FALL RISK. MAY TEACH THE PATIENT FLOOR RECOVERY WHEN CLINICALLY APPROPRIATE. OT/ADHESIVE BANDAGE MAKING OPERATOR TO EDUCATE ON HYPERTENSION SELF-MANAGEMENT OT/MARIANNE [...] End Date/Time Encounter Type Admission Type Attending [facility] Care Department Encounter ID Discharge Date Discharge Status Discharge Condition Discharge Reason Percent Goals Met 2025-02-07 00:00:00 2025-04-07 00:00:00 Outpatient NEW ADMISSION [facility] [id number] 26.42
--- OUTSIDE RECORDS SUMMARY | 2025-04-06 18:00 | XMS_ITS | Clinical Summary ---
Author Organization Unknown Care Team Providers Care Washing Machine Striper Name Role Phone DIGNA ARIEL, ESTRELLA Unavailable Unava dinora STOKES RN, FRANKIE Unavailable Unavailabl e KARI PT, DIDI Unavailable Unavailable NAT CIRCLE EDGER, GAUDENCIO Unavailable Unavailabl e RADHA OT, ROLANDO Unavailable Unavailable JOANNE STEVEN, HATTIE Unavailable Unavailable Payers Payer Name Policy Type Policy Number Effective Date Expira tion Date MEDICARE.[facility] [id number] Problems Condition Name Condition Details Condition Category Status Onset Date Resolution Date Last Treatment Date Treating Clinician Comments 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 02-07 [...] PNEUMONIA (RECURRENT) Active 02-07 00:00: 00 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 STEROIDS Active [...] 80 mg tablet 02-07 00:00: 00 Yes [id number] CHOLESTEROL 1 tablet DAILY 1 tablet DAILY (route: oral) Med Classific ation: Cardiovas cular Therapy Agents digoxin 125 mcg (0.125 mg) tablet 02-07 00:00: 00 02-21 23:59 :00 No [id number] HEART RHYTHM 1 tablet DAILY 1 tablet DAILY (route: oral) Med Classific ation: Cardiovas cular Therapy Agents escitalopra m 10 mg tablet 02-07 00:00: 00 Yes [id number] MOOD 1 tablet DAILY 1 tablet DAILY (route: oral) Med Classific ation: Central Nervous System Agents ezetimibe 10 mg tablet 02-07 00:00: 00 Yes [id number] CHOLESTEROL 1 tablet DAILY 1 tablet DAILY (route: oral) Med Classific ation: Cardiovas cular Therapy Agents metoprolol succinate ER 25 mg tablet,exte nded release 24 hr 02-07 00:00: 00 02-21 23:59 :00 No [id number] BLOOD PRESSURE 0.5 tablet DAILY 0.5 tablet DAILY (route: oral) Med Classific ation: Cardiovas cular Therapy Agents pantoprazol e 40 mg tablet,joão yed release 02-07 00:00: 00 02-21 23:59 :00 No [id number] STOMACH ACID 1 tablet DAILY 1 tablet DAILY (route: oral) Med Classific ation: Gastroint estinal Therapy Agents prednisone 5 mg tablet 02-07 00:00: 00 Yes [id number] ADRENAL INSUFFICIEN CY 1 tablet DAILY 1 tablet DAILY (route: oral) Med Classific ation: Endocrine spironolact one 25 mg tablet 02-07 00:00: 00 Yes [id number] FLUID RETENTION 0.5 tablet DAILY 0.5 tablet DAILY (route: oral) Med Classific ation: Cardiovas cular Therapy Agents tamsulosin 0.4 mg capsule 02-07 00:00: 00 02-21 23:59 :00 No [id number] URINARY HEALTH 1 capsule DAILY 1 capsule DAILY (route: oral) Med Classific ation: Genitouri nary Therapy acetaminoph en 325 mg tablet 2024-05 00:00: 00 Yes [id number] PAIN 2 tablet 2 TIMES DAILY 2 tablet 2 TIMES DAILY (route: oral) Med Classific ation: Analgesic , Anti-infl ammatory or Antipyret ic aspirin 81 mg tablet 2024-05 00:00: 00 Yes [id number] ANTICOAGULA NT 1 tablet DAILY 1 tablet DAILY (route: oral) Med Classific ation: Hematolog ical Agents ipratropium 0.5 mg-albutero l 3 mg (2.5 mg base)/3 mL nebulizatio n soln 2024-05 00:00: 00 Yes [id number] COPD 3 mL EVERY 6 HOURS 3 mL EVERY 6 HOURS (route: inhalation ) Med Classific ation: Respirato ry Therapy Agents Lanoxin 62.5 mcg (0.0625 mg) tablet 2024-05 00:00: 00 Yes [id number] CHF 1 tablet DAILY 1 tablet DAILY (route: oral) Med Classific ation: Cardiovas cular Therapy Agents Lasix 20 mg tablet 2024-05 00:00: 00 Yes [id number] CHF 1 tablet DAILY 1 tablet DAILY (route: oral) Med Classific ation: Cardiovas cular Therapy Agents Toprol XL 25 mg tablet,exte nded release 2024-05 00:00: 00 Yes [id number] BP 25 mg DAILY 25 mg DAILY [...] SYSTEM MANAGEMENT; RN TO ASSESS AND TEACH, AIR TABLE OPERATOR/ACTUARIAL ANALYST TO OBSERVE AND TEACH RELATED TO ALTERED RESPIRATORY STATUS TO MINIMIZE COMPLICATIONS AND REDUCE HOSPITALIZATION. [code = SN 1WK9 PT 1WK1 OT EFFECTIVE 02/10/2025K1 RESPIRATORY SYSTEM MANAGEMENT; RN TO ASSESS AND TEACH, AIR TABLE OPERATOR/ACTUARIAL ANALYST TO OBSERVE AND TEACH RELATED TO ALTERED RESPIRATORY STATUS TO MINIMIZE COMPLICATIONS AND REDUCE HOSPITALIZATION.] Future Scheduled Test TRACHEOSTO MY CARE MANAGEMENT; RN/AIR TABLE OPERATOR/ACTUARIAL ANALYST TO INSTRUCT PATIENT/CAREGIVER ON CARE AND MANAGEMENT OF TRACHEOSTOMY. RN/ AIR TABLE OPERATOR/ACTUARIAL ANALYST TO PROVIDE SKILLED TEACHING ON TRACH COLLAR SUCTIONING PRN WITH 14 FR SUCTION CATHETER PER PATIENT TRACH CARE WITH INNER CANNULA: REMOVE INNER CANNULA, CLEANSE WITH NORMAL SALINE AND OR STERILE WATER AND REINSERT NON-DISPOSABLE CANNULA SIZE OF INNER CANNULA 5 BROOKS [code = TRACHEOSTOMY CARE MANAGEMENT; RN/AIR TABLE OPERATOR/ACTUARIAL ANALYST TO INSTRUCT PATIENT/CAREGIVER ON CARE AND MANAGEMENT OF TRACHEOSTOMY. RN/ AIR TABLE OPERATOR/ACTUARIAL ANALYST TO PROVIDE SKILLED TEACHING ON TRACH COLLAR SUCTIONING PRN WITH 14 FR SUCTION CATHETER PER PATIENT TRACH CARE WITH INNER CANNULA: REMOVE INNER CANNULA, CLEANSE WITH NORMAL SALINE AND OR STERILE WATER AND REINSERT NON-DISPOSABLE CANNULA SIZE OF INNER CANNULA 5 BROOKS] Future Scheduled Test FALL REDUC TION MANAGEMENT; RN TO ASSESS AND OBSERVE, AIR TABLE OPERATOR/ACTUARIAL ANALYST TO OBSERVE FALL RISK FACTORS AND EDUCATE PATIENT/CAREGIVER ON STRATEGIES TO MINIMIZE THE RISK OF FALLING. [code = FALL REDUCTION MANAGEMENT; RN TO ASSESS AND OBSERVE, AIR TABLE OPERATOR/ACTUARIAL ANALYST TO OBSERVE FALL RISK FACTORS AND EDUCATE PATIENT/CAREGIVER ON STRATEGIES TO MINIMIZE THE RISK OF FALLING.] Future Scheduled Test ANEMIA MAN AGEMENT; RN TO ASSESS AND TEACH, ACTUARIAL ANALYST/AIR TABLE OPERATOR TO OBSERVE AND TEACH AND PROVIDE EDUCATION ON ANEMIA. [code = ANEMIA MANAGEMENT; RN TO ASSESS AND TEACH, ACTUARIAL ANALYST/AIR TABLE OPERATOR TO OBSERVE AND TEACH AND PROVIDE EDUCATION ON ANEMIA.] Future Scheduled Test RN TO OBSE RVE, ASSESS, EVALUATE, AND DEVELOP AN INDIVIDUALIZED PLAN OF CARE. AGENCY MAY ACCEPT ORDERS FROM CONSULTING PHYSICIANS RN TO OBSERVE AND ASSESS, AIR TABLE OPERATOR/ACTUARIAL ANALYST TO OBSERVE FOR RISK FOR FALLS AND INSTRUCT IN FALL PREVENTION, HOME SAFETY, MEDICATION MANAGEMENT, INFECTION PREVENTION, AND NUTRITION MANAGEMENT. RN/AIR TABLE OPERATOR/ACTUARIAL ANALYST NURSE MAY PERFORM O2 SATURATION LEVEL ON ADMISSION AND PRN FOR RN TO ASSESS/AIR TABLE OPERATOR TO OBSERVE PATIENT, WITH NOTIFICATION TO THE PHYSICIAN IF SATURATION IS 90% IN THE ABSENCE OF MORE SPECIFIC PARAMETERS FROM THE PHYSICIAN. AGENCY MAY PERFORM A RESUMPTION OF CARE VISIT FOLLOWING ANY HOSPITAL ADMISSION. RN/AIR TABLE OPERATOR/ACTUARIAL ANALYST TO MONITOR CO-MORBID CONDITIONS LISTED ON THE PLAN OF CARE AND ANY NEW CONDITIONS THAT PRESENT THEMSELVES DURING THIS EPISODE TO IDENTIFY CHANGES AND INTERVENE TO MINIMIZE COMPLICATIONS. [code = RN TO OBSERVE, ASSESS, EVALUATE, AND DEVELOP AN INDIVIDUALIZED PLAN OF CARE. AGENCY MAY ACCEPT ORDERS FROM CONSULTING PHYSICIANS RN TO OBSERVE AND ASSESS, AIR TABLE OPERATOR/ACTUARIAL ANALYST TO OBSERVE FOR RISK FOR FALLS AND INSTRUCT IN FALL PREVENTION, HOME SAFETY, MEDICATION MANAGEMENT, INFECTION PREVENTION, AND NUTRITION MANAGEMENT. RN/AIR TABLE OPERATOR/ACTUARIAL ANALYST NURSE MAY PERFORM O2 SATURATION LEVEL ON ADMISSION AND PRN FOR RN TO ASSESS/AIR TABLE OPERATOR TO OBSERVE PATIENT, WITH NOTIFICATION TO THE PHYSICIAN IF SATURATION IS 90% IN THE ABSENCE OF MORE SPECIFIC PARAMETERS FROM THE PHYSICIAN. AGENCY MAY PERFORM A RESUMPTION OF CARE VISIT FOLLOWING ANY HOSPITAL ADMISSION. RN/AIR TABLE OPERATOR/ACTUARIAL ANALYST TO MONITOR CO-MORBID CONDITIONS LISTED ON THE PLAN OF CARE AND ANY NEW CONDITIONS THAT PRESENT THEMSELVES DURING THIS EPISODE TO IDENTIFY CHANGES AND INTERVENE TO MINIMIZE COMPLICATIONS.] Future Scheduled Test PAIN MANAG EMENT; RN TO ASSESS AND TEACH, ACTUARIAL ANALYST/AIR TABLE OPERATOR TO OBSERVE AND TEACH AND PROVIDE EDUCATION ON PAIN MANAGEMENT TECHNIQUES. [code = PAIN MANAGEMENT; RN TO ASSESS AND TEACH, ACTUARIAL ANALYST/AIR TABLE OPERATOR TO OBSERVE AND TEACH AND PROVIDE EDUCATION ON PAIN MANAGEMENT TECHNIQUES.] Future Scheduled Test RISK FOR H OSPITALIZATION; RN TO ASSESS/TEACH, ACTUARIAL ANALYST/AIR TABLE OPERATOR TO OBSERVE/TEACH PATIENT/CAREGIVER ON RISK FOR HOSPITALIZATION/EMERGENCY ROOM VISITS, TEACH SIGNS AND SYMPTOMS THAT PUT PATIENT AT RISK, WHEN TO NOTIFY NURSE/PHYSICIAN OF COMPLICATIONS/DECLINE, AND WHEN TO CALL 911. [code = RISK FOR HOSPITALIZATION; RN TO ASSESS/TEACH, ACTUARIAL ANALYST/AIR TABLE OPERATOR TO OBSERVE/TEACH PATIENT/CAREGIVER ON RISK FOR HOSPITALIZATION/EMERGENCY ROOM VISITS, TEACH SIGNS AND SYMPTOMS THAT PUT PATIENT AT RISK, WHEN TO NOTIFY NURSE/PHYSICIAN OF COMPLICATIONS/DECLINE, AND WHEN TO CALL 911.] Future Scheduled Test CARDIOVASC ULAR SYSTEM; RN TO ASSESS/TEACH, AIR TABLE OPERATOR/ACTUARIAL ANALYST TO OBSERVE/TEACH RELATED TO ALTERED CARDIOVASCULAR STATUS TO MINIMIZE COMPLICATIONS AND REDUCE HOSPITALIZATION. [code = CARDIOVASCULAR SYSTEM; RN TO ASSESS/TEACH, AIR TABLE OPERATOR/ACTUARIAL ANALYST TO OBSERVE/TEACH RELATED TO ALTERED CARDIOVASCULAR STATUS TO MINIMIZE COMPLICATIONS AND REDUCE HOSPITALIZATION.] Future Scheduled Test HYPERTENSI ON MANAGEMENT; RN TO ASSESS AND TEACH, AIR TABLE OPERATOR/ACTUARIAL ANALYST TO OBSERVE AND TEACH WARNING SIGNS AND SYMPTOMS TO AVOID HOSPITALIZATION. [code = HYPERTENSION MANAGEMENT; RN TO ASSESS AND TEACH, AIR TABLE OPERATOR/ACTUARIAL ANALYST TO OBSERVE AND TEACH WARNING SIGNS AND SYMPTOMS TO AVOID HOSPITALIZATION.] Future Scheduled Test HEART FAIL URE MONITORING RN/ACTUARIAL ANALYST/AIR TABLE OPERATOR TO MONITOR PATIENT FOR SIGNS AND SYMPTOMS OF HEART FAILURE EXACERBATION, MONITOR FOR ADHERENCE WITH MEDICATION AND HEART FAILURE MANAGEMENT REGIMEN. [code = HEART FAILURE MONITORING RN/ACTUARIAL ANALYST/AIR TABLE OPERATOR TO MONITOR PATIENT FOR SIGNS AND SYMPTOMS OF HEART FAILURE EXACERBATION, MONITOR FOR ADHERENCE WITH MEDICATION AND HEART FAILURE MANAGEMENT REGIMEN.] Future Scheduled Test DIABETES M ONITORING RN/ACTUARIAL ANALYST/AIR TABLE OPERATOR TO MONITOR BLOOD SUGAR LOG FOR BLOOD SUGAR READINGS THAT ARE BEING CHECKED BY PATIENT, CAREGIVER NEEDED FOR SIGNS AND SYMPTOMS OF HYPER/HYPOGLYCEMIA. PATIENT THERAPEUTIC BLOOD SUGAR PARAMETERS ARE 70 - 300. REPORT BLOOD SUGARS OUT OF RANGE TO PHYSICIAN. NURSE MAY PERFORM FINGER STICK BLOOD GLUCOSE NEEDED FOR SIGNS AND SYMPTOMS OF HYPO AND HYPERGLYCEMIA. RN/ACTUARIAL ANALYST/AIR TABLE OPERATOR TO MONITOR ADHERENCE OF PATIENT/CAREGIVER PERFORMING DIABETIC FOOT CARE AND MAY PERFORM DIABETIC FOOT CARE PRN. RN/ACTUARIAL ANALYST/AIR TABLE OPERATOR TO MONITOR FOR ADHERENCE TO DIABETIC SELF-CARE AND MANAGEMENT INCLUDING MEDICATIONS. [code = DIABETES MONITORING RN/ACTUARIAL ANALYST/AIR TABLE OPERATOR TO MONITOR BLOOD SUGAR LOG FOR BLOOD SUGAR READINGS THAT ARE BEING CHECKED BY PATIENT, CAREGIVER NEEDED FOR SIGNS AND SYMPTOMS OF HYPER/HYPOGLYCEMIA. PATIENT THERAPEUTIC BLOOD SUGAR PARAMETERS ARE 70 - 300. REPORT BLOOD SUGARS OUT OF RANGE TO PHYSICIAN. NURSE MAY PERFORM FINGER STICK BLOOD GLUCOSE NEEDED FOR SIGNS AND SYMPTOMS OF HYPO AND HYPERGLYCEMIA. RN/ACTUARIAL ANALYST/AIR TABLE OPERATOR TO MONITOR ADHERENCE OF PATIENT/CAREGIVER PERFORMING DIABETIC FOOT CARE AND MAY PERFORM DIABETIC FOOT CARE PRN. RN/ACTUARIAL ANALYST/AIR TABLE OPERATOR TO MONITOR FOR ADHERENCE TO DIABETIC SELF-CARE AND MANAGEMENT INCLUDING MEDICATIONS.] Future Scheduled Test HYPOTENSIO N MANAGEMENT; RN TO ASSESS AND TEACH/ AIR TABLE OPERATOR /ACTUARIAL ANALYST TO OBSERVE AND TEACH WARNING SIGNS AND SYMPTOMS TO AVOID HOSPITALIZATION. [code = HYPOTENSION MANAGEMENT; RN TO ASSESS AND TEACH/ AIR TABLE OPERATOR /ACTUARIAL ANALYST TO OBSERVE AND TEACH WARNING SIGNS AND SYMPTOMS TO AVOID HOSPITALIZATION.] Future Scheduled Test ARRHYTHMIA MANAGEMENT; RN TO ASSESS AND TEACH, AIR TABLE OPERATOR/ACTUARIAL ANALYST TO OBSERVE AND TEACH WARNING SIGNS AND SYMPTOMS TO AVOID HOSPITALIZATION. [code = ARRHYTHMIA MANAGEMENT; RN TO ASSESS AND TEACH, AIR TABLE OPERATOR/ACTUARIAL ANALYST TO OBSERVE AND TEACH WARNING SIGNS AND SYMPTOMS TO AVOID HOSPITALIZATION.] Future Scheduled Test MEDICATION MANAGEMENT; RN/AIR TABLE OPERATOR/ACTUARIAL ANALYST TO REVIEW MEDICATIONS FOR INTERACTIONS, EFFECTIVENESS OF DRUG THERAPY, AND SIGNS/SYMPTOMS OF ADVERSE REACTIONS. MAY INSTRUCT AND REINFORCE MEDICATION TEACHING RELATED TO THE USE OF MEDICATIONS, DOSAGE, FREQUENCY, PURPOSE, SIDE EFFECTS, AND TO REPORT COMPLICATIONS. [code = MEDICATION MANAGEMENT; RN/AIR TABLE OPERATOR/ACTUARIAL ANALYST TO REVIEW MEDICATIONS FOR INTERACTIONS, EFFECTIVENESS OF [...] EVAL UATE, OBSERVE / ASSESS, AND MONITOR, CIRCLE EDGER TO OBSERVE AND MONITOR, PROVIDE SKILLED THERAPEUTIC INTERVENTION, ACTIVITY, EDUCATION, AND TRAINING TO ADDRESS GEN. WEAKNESS, POOR OVERALL ACTIVITY TOLERANCE, AND FUNCTIONAL LIMITATIONS IMPACTING SAFETY AND INDEPENDENCE. BED MOBILITY (PT/CIRCLE EDGER) PT/CIRCLE EDGER TO PROVIDE GAIT TRAINING FOR IMPROVED MOBILITY AND /OR TO NORMALIZE GAIT PATTERN THERAPEUTIC EXERCISES AND ESTABLISHING A HOME EXERCISE PROGRAM (PT/CIRCLE EDGER) PT/CIRCLE EDGER TO PROVIDE STAIR TRAINING PT / CIRCLE EDGER TO MONITOR AND EDUCATE ON OXYGEN SATURATION DURING ADLS/IADLS, NOTIFY PHYSICIAN AND/OR THE RN CLINICAL FACULTY CRIMINAL JUSTICE FOR PHYSICIAN NOTIFICATION AND IF O2 SATS BELOW PHYSICIAN ORDERED PARAMETERS AFTER 10 MIN OF REST PT / CIRCLE EDGER TO OBSERVE FOR EARLY SIGNS AND SYMPTOMS OF DEPRESSION OR DEPRESSION GETTING WORSE AND TO EDUCATE ON HOW TO FIND HELP. PT / CIRCLE EDGER MAY EDUCATE ON PAIN MANAGEMENT CLINICALLY INDICATED, INCLUDING NON-PHARMACOLOGICAL PAIN REDUCTION TECHNIQUES PT / CIRCLE EDGER TO MONITOR FOR HYPO/HYPERGLYCEMIA AND CONDUCT ROUTINE FOOT INSPECTIONS. RECORD PATIENT REPORTED BLOOD SUGAR LEVELS AND NOTIFY PHYSICIAN AND/OR THE RN CLINICAL FACULTY CRIMINAL JUSTICE FOR PHYSICIAN NOTIFICATION IF BLOOD SUGAR LEVELS ARE OUTSIDE ORDERED PARAMETERS. TEACH PATIENT/CAREGIVER ON DAILY FOOT INSPECTIONS PT / CIRCLE EDGER TO INSTRUCT PATIENT/CAREGIVER ON RISK FOR HOSPITALIZATION/EMERGENCY ROOM VISITS, TEACH SIGNS AND SYMPTOMS THAT PUT PATIENT AT RISK, WHEN TO NOTIFY NURSE/PHYSICIAN OF COMPLICATIONS/DECLINE, AND WHEN TO CALL 911. PT/CIRCLE EDGER TO EDUCATE ON ARTHRITIS SELF-MANAGEMENT PT / CIRCLE EDGER TO EDUCATE ON HEART FAILURE SELF-MANAGEMENT PT / CIRCLE EDGER TO EDUCATE ON HYPERTENSION SELF-MANAGEMENT PT TO ASSESS / CIRCLE EDGER TO MONITOR CARDIO/RESPIRATORY SYSTEM; AND NOTIFY THE PHYSICIAN AND/OR THE RN CLINICAL FACULTY CRIMINAL JUSTICE FOR PHYSICIAN NOTIFICATION FOR EARLY SIGNS AND SYMPTOMS OF EXACERBATION OR DETERIORATION. PT / CIRCLE EDGER TO EDUCATE ON ATRIAL FIBRILLATION SELF-MANAGEMENT. PT / CIRCLE EDGER TO EDUCATE ON PNEUMONIA / ASPIRATION PNEUMONIA SELF-MANAGEMENT. PT/CIRCLE EDGER TO IDENTIFY FALL RISK FACTORS; EDUCATE THE PATIENT/CAREGIVER ON WAYS TO REDUCE FALL RISK FACTORS AND ESTABLISH HOME EXERCISE PROGRAM TO MINIMIZE FALL RISK. MAY TEACH THE PATIENT FLOOR RECOVERY WHEN CLINICALLY APPROPRIATE [code = PT TO EVALUATE, OBSERVE / ASSESS, AND MONITOR, CIRCLE EDGER TO OBSERVE AND MONITOR, PROVIDE SKILLED THERAPEUTIC INTERVENTION, ACTIVITY, EDUCATION, AND TRAINING TO ADDRESS GEN. WEAKNESS, POOR OVERALL ACTIVITY TOLERANCE, AND FUNCTIONAL LIMITATIONS IMPACTING SAFETY AND INDEPENDENCE. BED MOBILITY (PT/CIRCLE EDGER) PT/CIRCLE EDGER TO PROVIDE GAIT TRAINING FOR IMPROVED MOBILITY AND /OR TO NORMALIZE GAIT PATTERN THERAPEUTIC EXERCISES AND ESTABLISHING A HOME EXERCISE PROGRAM (PT/CIRCLE EDGER) PT/CIRCLE EDGER TO PROVIDE STAIR TRAINING PT / CIRCLE EDGER TO MONITOR AND EDUCATE ON OXYGEN SATURATION DURING ADLS/IADLS, NOTIFY PHYSICIAN AND/OR THE RN CLINICAL FACULTY CRIMINAL JUSTICE FOR PHYSICIAN NOTIFICATION AND IF O2 SATS BELOW PHYSICIAN ORDERED PARAMETERS AFTER 10 MIN OF REST PT / CIRCLE EDGER TO OBSERVE FOR EARLY SIGNS AND SYMPTOMS OF DEPRESSION OR DEPRESSION GETTING WORSE AND TO EDUCATE ON HOW TO FIND HELP. PT / CIRCLE EDGER MAY EDUCATE ON PAIN MANAGEMENT CLINICALLY INDICATED, INCLUDING NON-PHARMACOLOGICAL PAIN REDUCTION TECHNIQUES PT / CIRCLE EDGER TO MONITOR FOR HYPO/HYPERGLYCEMIA AND CONDUCT ROUTINE FOOT INSPECTIONS. RECORD PATIENT REPORTED BLOOD SUGAR LEVELS AND NOTIFY PHYSICIAN AND/OR THE RN CLINICAL FACULTY CRIMINAL JUSTICE FOR PHYSICIAN NOTIFICATION IF BLOOD SUGAR LEVELS ARE OUTSIDE ORDERED PARAMETERS. TEACH PATIENT/CAREGIVER ON DAILY FOOT INSPECTIONS PT / CIRCLE EDGER TO INSTRUCT PATIENT/CAREGIVER ON RISK FOR HOSPITALIZATION/EMERGENCY ROOM VISITS, TEACH SIGNS AND SYMPTOMS THAT PUT PATIENT AT RISK, WHEN TO NOTIFY NURSE/PHYSICIAN OF COMPLICATIONS/DECLINE, AND WHEN TO CALL 911. PT/CIRCLE EDGER TO EDUCATE ON ARTHRITIS SELF-MANAGEMENT PT / CIRCLE EDGER TO EDUCATE ON HEART FAILURE SELF-MANAGEMENT PT / CIRCLE EDGER TO EDUCATE ON HYPERTENSION SELF-MANAGEMENT PT TO ASSESS / CIRCLE EDGER TO MONITOR CARDIO/RESPIRATORY SYSTEM; AND NOTIFY THE PHYSICIAN AND/OR THE RN CLINICAL FACULTY CRIMINAL JUSTICE FOR PHYSICIAN NOTIFICATION FOR EARLY SIGNS AND SYMPTOMS OF EXACERBATION OR DETERIORATION. PT / CIRCLE EDGER TO EDUCATE ON ATRIAL FIBRILLATION SELF-MANAGEMENT. PT / CIRCLE EDGER TO EDUCATE ON PNEUMONIA / ASPIRATION PNEUMONIA SELF-MANAGEMENT. PT/CIRCLE EDGER TO IDENTIFY FALL RISK FACTORS; EDUCATE THE PATIENT/CAREGIVER ON WAYS TO REDUCE FALL RISK FACTORS AND ESTABLISH HOME EXERCISE PROGRAM TO MINIMIZE FALL RISK. MAY TEACH THE PATIENT FLOOR RECOVERY WHEN CLINICALLY APPROPRIATE] Future Scheduled Test AGENCY MAY PERFORM A RESUMPTION OF CARE VISIT FOLLOWING ANY HOSPITAL ADMISSION. OT TO EVALUATE, OBSERVE / ASSESS, AND MONITOR, WET END TESTER TO OBSERVE AND MONITOR, PROVIDE SKILLED THERAPEUTIC INTERVENTION, ACTIVITY, EDUCATION, AND TRAINING TO ADDRESS SAFETY AND INDEPENDENCE OF ADLS AND FUNCTIONAL TRANSFERS IN HOME ENVIRONMENT. ACTIVITIES OF DAILY LIVING (OT/MARIANNE) THERAPEUTIC EXERCISE (OT/WET END TESTER) ENERGY CONSERVATION/ACTIVITY DEMAND (OT/WET END TESTER) OT/WET END TESTER TO MONITOR AND EDUCATE ON OXYGEN SATURATION DURING ADLS/IADLS, NOTIFY PHYSICIAN AND/OR THE RN CLINICAL FACULTY CRIMINAL JUSTICE FOR PHYSICIAN NOTIFICATION AND IF O2 SATS BELOW 90% AFTER 10 MIN OF REST. OT / WET END TESTER TO IDENTIFY FALL RISK FACTORS; EDUCATE THE PATIENT/CAREGIVER ON WAYS TO REDUCE FALL RISK FACTORS AND ESTABLISH HOME EXERCISE PROGRAM TO MINIMIZE FALL RISK. MAY TEACH THE PATIENT FLOOR RECOVERY WHEN CLINICALLY APPROPRIATE. OT/WET END TESTER TO EDUCATE ON HYPERTENSION SELF-MANAGEMENT OT/MARIANNE TO EDUCATE ON ATRIAL FIBRILLATION SELF-MANAGEMENT. [code = AGENCY MAY PERFORM A RESUMPTION OF CARE VISIT FOLLOWING ANY HOSPITAL ADMISSION. OT TO EVALUATE, OBSERVE / ASSESS, AND MONITOR, WET END TESTER TO OBSERVE AND MONITOR, PROVIDE SKILLED THERAPEUTIC INTERVENTION, ACTIVITY, EDUCATION, AND TRAINING TO ADDRESS SAFETY AND INDEPENDENCE OF ADLS AND FUNCTIONAL TRANSFERS IN HOME ENVIRONMENT. ACTIVITIES OF DAILY LIVING (OT/MARIANNE) THERAPEUTIC EXERCISE (OT/WET END TESTER) ENERGY CONSERVATION/ACTIVITY DEMAND (OT/MARIANNE) OT/WET END TESTER TO MONITOR AND EDUCATE ON OXYGEN SATURATION DURING ADLS/IADLS, NOTIFY PHYSICIAN AND/OR THE RN CLINICAL FACULTY CRIMINAL JUSTICE FOR PHYSICIAN NOTIFICATION AND IF O2 SATS BELOW 90% AFTER 10 MIN OF REST. OT / MARIANNE TO IDENTIFY FALL RISK FACTORS; EDUCATE THE PATIENT/CAREGIVER ON WAYS TO REDUCE FALL RISK FACTORS AND ESTABLISH HOME EXERCISE PROGRAM TO MINIMIZE FALL RISK. MAY TEACH THE PATIENT FLOOR RECOVERY WHEN CLINICALLY APPROPRIATE. OT/WET END TESTER TO EDUCATE ON HYPERTENSION SELF-MANAGEMENT OT/MARIANNE TO [...] OF SKIN INTEGRITY ISSUES FROM SBA TO HI WITHIN 2 WKS. PT STG: PATIENT WILL [...] TO SAFELY NEGOTIATE STAIRS FROM SBA TO HI WITH 2 STEPS W/O HANDRAIL VIA FRONT [...] Outpatient NEW ADMISSION FR[facility]OK[facility] [id number]
--- OUTSIDE RECORDS SUMMARY | 2025-04-06 18:00 | XMS_ITS | Clinical Summary ---
Author Organization Unknown Care Team Providers Care Business Process Modeler Name Role Phone DIGNA ARIEL, ESTRELLA Unavailable Unava dinora STOKES RN, FRANKIE Unavailable Unavailabl e KARI PT, DIDI Unavailable Unavailable NAT FACILITY TECHNICIAN, GAUDENCIO Unavailable Unavailabl e RADHA OT, ROLANDO Unavailable Unavailable JOANNE STEVEN, HATTIE Unavailable Unavailable Payers Payer Name Policy Type Policy Number Effective Date Expira tion Date MEDICARE.[facility] [id number] Problems Condition Name Condition Details Condition Category Status Onset Date Resolution Date Last Treatment Date Treating Clinician Comments 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 02-07 [...] OF PNEUMONIA (RECURRENT) Active 02-07 00:00: 00 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 (CURRENT) USE OF SYSTEMIC STEROIDS Active [...] 80 mg tablet 02-07 00:00: 00 Yes [id number] CHOLESTEROL 1 tablet DAILY 1 tablet DAILY (route: oral) Med Classific ation: Cardiovas cular Therapy Agents digoxin 125 mcg (0.125 mg) tablet 02-07 00:00: 00 02-21 23:59 :00 No [id number] HEART RHYTHM 1 tablet DAILY 1 tablet DAILY (route: oral) Med Classific ation: Cardiovas cular Therapy Agents escitalopra m 10 mg tablet 02-07 00:00: 00 Yes [id number] MOOD 1 tablet DAILY 1 tablet DAILY (route: oral) Med Classific ation: Central Nervous System Agents ezetimibe 10 mg tablet 02-07 00:00: 00 Yes [id number] CHOLESTEROL 1 tablet DAILY 1 tablet DAILY (route: oral) Med Classific ation: Cardiovas cular Therapy Agents metoprolol succinate ER 25 mg tablet,exte nded release 24 hr 02-07 00:00: 00 02-21 23:59 :00 No [id number] BLOOD PRESSURE 0.5 tablet DAILY 0.5 tablet DAILY (route: oral) Med Classific ation: Cardiovas cular Therapy Agents pantoprazol e 40 mg tablet,joão yed release 02-07 00:00: 00 02-21 23:59 :00 No [id number] STOMACH ACID 1 tablet DAILY 1 tablet DAILY (route: oral) Med Classific ation: Gastroint estinal Therapy Agents prednisone 5 mg tablet 02-07 00:00: 00 Yes [id number] ADRENAL INSUFFICIEN CY 1 tablet DAILY 1 tablet DAILY (route: oral) Med Classific ation: Endocrine spironolact one 25 mg tablet 02-07 00:00: 00 Yes [id number] FLUID RETENTION 0.5 tablet DAILY 0.5 tablet DAILY (route: oral) Med Classific ation: Cardiovas cular Therapy Agents tamsulosin 0.4 mg capsule 02-07 00:00: 00 02-21 23:59 :00 No [id number] URINARY HEALTH 1 capsule DAILY 1 capsule DAILY (route: oral) Med Classific ation: Genitouri nary Therapy acetaminoph en 325 mg tablet 2024-05 00:00: 00 Yes [id number] PAIN 2 tablet 2 TIMES DAILY 2 tablet 2 TIMES DAILY (route: oral) Med Classific ation: Analgesic , Anti-infl ammatory or Antipyret ic aspirin 81 mg tablet 2024-05 00:00: 00 Yes [id number] ANTICOAGULA NT 1 tablet DAILY 1 tablet DAILY (route: oral) Med Classific ation: Hematolog ical Agents ipratropium 0.5 mg-albutero l 3 mg (2.5 mg base)/3 mL nebulizatio n soln 2024-05 00:00: 00 Yes [id number] COPD 3 mL EVERY 6 HOURS 3 mL EVERY 6 HOURS (route: inhalation ) Med Classific ation: Respirato ry Therapy Agents Lanoxin 62.5 mcg (0.0625 mg) tablet 2024-05 00:00: 00 Yes [id number] CHF 1 tablet DAILY 1 tablet DAILY (route: oral) Med Classific ation: Cardiovas cular Therapy Agents Lasix 20 mg tablet 2024-05 00:00: 00 Yes [id number] CHF 1 tablet DAILY 1 tablet DAILY (route: oral) Med Classific ation: Cardiovas cular Therapy Agents Toprol XL 25 mg tablet,exte nded release 2024-05 00:00: 00 Yes [id number] BP 25 mg DAILY 25 mg DAILY [...] SYSTEM MANAGEMENT; RN TO ASSESS AND TEACH, BOILER FITTER/CHEMISTRY ACCOUNT MANAGER TO OBSERVE AND TEACH RELATED TO ALTERED RESPIRATORY STATUS TO MINIMIZE COMPLICATIONS AND REDUCE HOSPITALIZATION. [code = SN 1WK9 PT 1WK1 OT EFFECTIVE 02/10/2025K1 RESPIRATORY SYSTEM MANAGEMENT; RN TO ASSESS AND TEACH, BOILER FITTER/CHEMISTRY ACCOUNT MANAGER TO OBSERVE AND TEACH RELATED TO ALTERED RESPIRATORY STATUS TO MINIMIZE COMPLICATIONS AND REDUCE HOSPITALIZATION.] Future Scheduled Test TRACHEOSTO MY CARE MANAGEMENT; RN/BOILER FITTER/CHEMISTRY ACCOUNT MANAGER TO INSTRUCT PATIENT/CAREGIVER ON CARE AND MANAGEMENT OF TRACHEOSTOMY. RN/ BOILER FITTER/CHEMISTRY ACCOUNT MANAGER TO PROVIDE SKILLED TEACHING ON TRACH COLLAR SUCTIONING PRN WITH 14 FR SUCTION CATHETER PER PATIENT TRACH CARE WITH INNER CANNULA: REMOVE INNER CANNULA, CLEANSE WITH NORMAL SALINE AND OR STERILE WATER AND REINSERT NON-DISPOSABLE CANNULA SIZE OF INNER CANNULA 5 BROOKS [code = TRACHEOSTOMY CARE MANAGEMENT; RN/BOILER FITTER/CHEMISTRY ACCOUNT MANAGER TO INSTRUCT PATIENT/CAREGIVER ON CARE AND MANAGEMENT OF TRACHEOSTOMY. RN/ BOILER FITTER/CHEMISTRY ACCOUNT MANAGER TO PROVIDE SKILLED TEACHING ON TRACH COLLAR SUCTIONING PRN WITH 14 FR SUCTION CATHETER PER PATIENT TRACH CARE WITH INNER CANNULA: REMOVE INNER CANNULA, CLEANSE WITH NORMAL SALINE AND OR STERILE WATER AND REINSERT NON-DISPOSABLE CANNULA SIZE OF INNER CANNULA 5 BROOKS] Future Scheduled Test FALL REDUC TION MANAGEMENT; RN TO ASSESS AND OBSERVE, BOILER FITTER/CHEMISTRY ACCOUNT MANAGER TO OBSERVE FALL RISK FACTORS AND EDUCATE PATIENT/CAREGIVER ON STRATEGIES TO MINIMIZE THE RISK OF FALLING. [code = FALL REDUCTION MANAGEMENT; RN TO ASSESS AND OBSERVE, BOILER FITTER/CHEMISTRY ACCOUNT MANAGER TO OBSERVE FALL RISK FACTORS AND EDUCATE PATIENT/CAREGIVER ON STRATEGIES TO MINIMIZE THE RISK OF FALLING.] Future Scheduled Test ANEMIA MAN AGEMENT; RN TO ASSESS AND TEACH, CHEMISTRY ACCOUNT MANAGER/BOILER FITTER TO OBSERVE AND TEACH AND PROVIDE EDUCATION ON ANEMIA. [code = ANEMIA MANAGEMENT; RN TO ASSESS AND TEACH, CHEMISTRY ACCOUNT MANAGER/BOILER FITTER TO OBSERVE AND TEACH AND PROVIDE EDUCATION ON ANEMIA.] Future Scheduled Test RN TO OBSE RVE, ASSESS, EVALUATE, AND DEVELOP AN INDIVIDUALIZED PLAN OF CARE. AGENCY MAY ACCEPT ORDERS FROM CONSULTING PHYSICIANS RN TO OBSERVE AND ASSESS, BOILER FITTER/CHEMISTRY ACCOUNT MANAGER TO OBSERVE FOR RISK FOR FALLS AND INSTRUCT IN FALL PREVENTION, HOME SAFETY, MEDICATION MANAGEMENT, INFECTION PREVENTION, AND NUTRITION MANAGEMENT. RN/BOILER FITTER/CHEMISTRY ACCOUNT MANAGER NURSE MAY PERFORM O2 SATURATION LEVEL ON ADMISSION AND PRN FOR RN TO ASSESS/BOILER FITTER TO OBSERVE PATIENT, WITH NOTIFICATION TO THE PHYSICIAN IF SATURATION IS 90% IN THE ABSENCE OF MORE SPECIFIC PARAMETERS FROM THE PHYSICIAN. AGENCY MAY PERFORM A RESUMPTION OF CARE VISIT FOLLOWING ANY HOSPITAL ADMISSION. RN/BOILER FITTER/CHEMISTRY ACCOUNT MANAGER TO MONITOR CO-MORBID CONDITIONS LISTED ON THE PLAN OF CARE AND ANY NEW CONDITIONS THAT PRESENT THEMSELVES DURING THIS EPISODE TO IDENTIFY CHANGES AND INTERVENE TO MINIMIZE COMPLICATIONS. [code = RN TO OBSERVE, ASSESS, EVALUATE, AND DEVELOP AN INDIVIDUALIZED PLAN OF CARE. AGENCY MAY ACCEPT ORDERS FROM CONSULTING PHYSICIANS RN TO OBSERVE AND ASSESS, BOILER FITTER/CHEMISTRY ACCOUNT MANAGER TO OBSERVE FOR RISK FOR FALLS AND INSTRUCT IN FALL PREVENTION, HOME SAFETY, MEDICATION MANAGEMENT, INFECTION PREVENTION, AND NUTRITION MANAGEMENT. RN/BOILER FITTER/CHEMISTRY ACCOUNT MANAGER NURSE MAY PERFORM O2 SATURATION LEVEL ON ADMISSION AND PRN FOR RN TO ASSESS/BOILER FITTER TO OBSERVE PATIENT, WITH NOTIFICATION TO THE PHYSICIAN IF SATURATION IS 90% IN THE ABSENCE OF MORE SPECIFIC PARAMETERS FROM THE PHYSICIAN. AGENCY MAY PERFORM A RESUMPTION OF CARE VISIT FOLLOWING ANY HOSPITAL ADMISSION. RN/BOILER FITTER/CHEMISTRY ACCOUNT MANAGER TO MONITOR CO-MORBID CONDITIONS LISTED ON THE PLAN OF CARE AND ANY NEW CONDITIONS THAT PRESENT THEMSELVES DURING THIS EPISODE TO IDENTIFY CHANGES AND INTERVENE TO MINIMIZE COMPLICATIONS.] Future Scheduled Test PAIN MANAG EMENT; RN TO ASSESS AND TEACH, CHEMISTRY ACCOUNT MANAGER/BOILER FITTER TO OBSERVE AND TEACH AND PROVIDE EDUCATION ON PAIN MANAGEMENT TECHNIQUES. [code = PAIN MANAGEMENT; RN TO ASSESS AND TEACH, CHEMISTRY ACCOUNT MANAGER/BOILER FITTER TO OBSERVE AND TEACH AND PROVIDE EDUCATION ON PAIN MANAGEMENT TECHNIQUES.] Future Scheduled Test RISK FOR H OSPITALIZATION; RN TO ASSESS/TEACH, CHEMISTRY ACCOUNT MANAGER/BOILER FITTER TO OBSERVE/TEACH PATIENT/CAREGIVER ON RISK FOR HOSPITALIZATION/EMERGENCY ROOM VISITS, TEACH SIGNS AND SYMPTOMS THAT PUT PATIENT AT RISK, WHEN TO NOTIFY NURSE/PHYSICIAN OF COMPLICATIONS/DECLINE, AND WHEN TO CALL 911. [code = RISK FOR HOSPITALIZATION; RN TO ASSESS/TEACH, CHEMISTRY ACCOUNT MANAGER/BOILER FITTER TO OBSERVE/TEACH PATIENT/CAREGIVER ON RISK FOR HOSPITALIZATION/EMERGENCY ROOM VISITS, TEACH SIGNS AND SYMPTOMS THAT PUT PATIENT AT RISK, WHEN TO NOTIFY NURSE/PHYSICIAN OF COMPLICATIONS/DECLINE, AND WHEN TO CALL 911.] Future Scheduled Test CARDIOVASC ULAR SYSTEM; RN TO ASSESS/TEACH, BOILER FITTER/CHEMISTRY ACCOUNT MANAGER TO OBSERVE/TEACH RELATED TO ALTERED CARDIOVASCULAR STATUS TO MINIMIZE COMPLICATIONS AND REDUCE HOSPITALIZATION. [code = CARDIOVASCULAR SYSTEM; RN TO ASSESS/TEACH, BOILER FITTER/CHEMISTRY ACCOUNT MANAGER TO OBSERVE/TEACH RELATED TO ALTERED CARDIOVASCULAR STATUS TO MINIMIZE COMPLICATIONS AND REDUCE HOSPITALIZATION.] Future Scheduled Test HYPERTENSI ON MANAGEMENT; RN TO ASSESS AND TEACH, BOILER FITTER/CHEMISTRY ACCOUNT MANAGER TO OBSERVE AND TEACH WARNING SIGNS AND SYMPTOMS TO AVOID HOSPITALIZATION. [code = HYPERTENSION MANAGEMENT; RN TO ASSESS AND TEACH, BOILER FITTER/CHEMISTRY ACCOUNT MANAGER TO OBSERVE AND TEACH WARNING SIGNS AND SYMPTOMS TO AVOID HOSPITALIZATION.] Future Scheduled Test HEART FAIL URE MONITORING RN/CHEMISTRY ACCOUNT MANAGER/BOILER FITTER TO MONITOR PATIENT FOR SIGNS AND SYMPTOMS OF HEART FAILURE EXACERBATION, MONITOR FOR ADHERENCE WITH MEDICATION AND HEART FAILURE MANAGEMENT REGIMEN. [code = HEART FAILURE MONITORING RN/CHEMISTRY ACCOUNT MANAGER/BOILER FITTER TO MONITOR PATIENT FOR SIGNS AND SYMPTOMS OF HEART FAILURE EXACERBATION, MONITOR FOR ADHERENCE WITH MEDICATION AND HEART FAILURE MANAGEMENT REGIMEN.] Future Scheduled Test DIABETES M ONITORING RN/CHEMISTRY ACCOUNT MANAGER/BOILER FITTER TO MONITOR BLOOD SUGAR LOG FOR BLOOD SUGAR READINGS THAT ARE BEING CHECKED BY PATIENT, CAREGIVER NEEDED FOR SIGNS AND SYMPTOMS OF HYPER/HYPOGLYCEMIA. PATIENT THERAPEUTIC BLOOD SUGAR PARAMETERS ARE 70 - 300. REPORT BLOOD SUGARS OUT OF RANGE TO PHYSICIAN. NURSE MAY PERFORM FINGER STICK BLOOD GLUCOSE NEEDED FOR SIGNS AND SYMPTOMS OF HYPO AND HYPERGLYCEMIA. RN/CHEMISTRY ACCOUNT MANAGER/BOILER FITTER TO MONITOR ADHERENCE OF PATIENT/CAREGIVER PERFORMING DIABETIC FOOT CARE AND MAY PERFORM DIABETIC FOOT CARE PRN. RN/CHEMISTRY ACCOUNT MANAGER/BOILER FITTER TO MONITOR FOR ADHERENCE TO DIABETIC SELF-CARE AND MANAGEMENT INCLUDING MEDICATIONS. [code = DIABETES MONITORING RN/CHEMISTRY ACCOUNT MANAGER/BOILER FITTER TO MONITOR BLOOD SUGAR LOG FOR BLOOD SUGAR READINGS THAT ARE BEING CHECKED BY PATIENT, CAREGIVER NEEDED FOR SIGNS AND SYMPTOMS OF HYPER/HYPOGLYCEMIA. PATIENT THERAPEUTIC BLOOD SUGAR PARAMETERS ARE 70 - 300. REPORT BLOOD SUGARS OUT OF RANGE TO PHYSICIAN. NURSE MAY PERFORM FINGER STICK BLOOD GLUCOSE NEEDED FOR SIGNS AND SYMPTOMS OF HYPO AND HYPERGLYCEMIA. RN/CHEMISTRY ACCOUNT MANAGER/BOILER FITTER TO MONITOR ADHERENCE OF PATIENT/CAREGIVER PERFORMING DIABETIC FOOT CARE AND MAY PERFORM DIABETIC FOOT CARE PRN. RN/CHEMISTRY ACCOUNT MANAGER/BOILER FITTER TO MONITOR FOR ADHERENCE TO DIABETIC SELF-CARE AND MANAGEMENT INCLUDING MEDICATIONS.] Future Scheduled Test HYPOTENSIO N MANAGEMENT; RN TO ASSESS AND TEACH/ BOILER FITTER /CHEMISTRY ACCOUNT MANAGER TO OBSERVE AND TEACH WARNING SIGNS AND SYMPTOMS TO AVOID HOSPITALIZATION. [code = HYPOTENSION MANAGEMENT; RN TO ASSESS AND TEACH/ BOILER FITTER /CHEMISTRY ACCOUNT MANAGER TO OBSERVE AND TEACH WARNING SIGNS AND SYMPTOMS TO AVOID HOSPITALIZATION.] Future Scheduled Test ARRHYTHMIA MANAGEMENT; RN TO ASSESS AND TEACH, BOILER FITTER/CHEMISTRY ACCOUNT MANAGER TO OBSERVE AND TEACH WARNING SIGNS AND SYMPTOMS TO AVOID HOSPITALIZATION. [code = ARRHYTHMIA MANAGEMENT; RN TO ASSESS AND TEACH, BOILER FITTER/CHEMISTRY ACCOUNT MANAGER TO OBSERVE AND TEACH WARNING SIGNS AND SYMPTOMS TO AVOID HOSPITALIZATION.] Future Scheduled Test MEDICATION MANAGEMENT; RN/BOILER FITTER/CHEMISTRY ACCOUNT MANAGER TO REVIEW MEDICATIONS FOR INTERACTIONS, EFFECTIVENESS OF DRUG THERAPY, AND SIGNS/SYMPTOMS OF ADVERSE REACTIONS. MAY INSTRUCT AND REINFORCE MEDICATION TEACHING RELATED TO THE USE OF MEDICATIONS, DOSAGE, FREQUENCY, PURPOSE, SIDE EFFECTS, AND TO REPORT COMPLICATIONS. [code = MEDICATION MANAGEMENT; RN/BOILER FITTER/CHEMISTRY ACCOUNT MANAGER TO REVIEW MEDICATIONS FOR INTERACTIONS, EFFECTIVENESS [...] EVAL UATE, OBSERVE / ASSESS, AND MONITOR, FACILITY TECHNICIAN TO OBSERVE AND MONITOR, PROVIDE SKILLED THERAPEUTIC INTERVENTION, ACTIVITY, EDUCATION, AND TRAINING TO ADDRESS GEN. WEAKNESS, POOR OVERALL ACTIVITY TOLERANCE, AND FUNCTIONAL LIMITATIONS IMPACTING SAFETY AND INDEPENDENCE. BED MOBILITY (PT/FACILITY TECHNICIAN) PT/FACILITY TECHNICIAN TO PROVIDE GAIT TRAINING FOR IMPROVED MOBILITY AND /OR TO NORMALIZE GAIT PATTERN THERAPEUTIC EXERCISES AND ESTABLISHING A HOME EXERCISE PROGRAM (PT/FACILITY TECHNICIAN) PT/FACILITY TECHNICIAN TO PROVIDE STAIR TRAINING PT / FACILITY TECHNICIAN TO MONITOR AND EDUCATE ON OXYGEN SATURATION DURING ADLS/IADLS, NOTIFY PHYSICIAN AND/OR THE RN CLINICAL ASSISTANT MANAGER FOR PHYSICIAN NOTIFICATION AND IF O2 SATS BELOW PHYSICIAN ORDERED PARAMETERS AFTER 10 MIN OF REST PT / FACILITY TECHNICIAN TO OBSERVE FOR EARLY SIGNS AND SYMPTOMS OF DEPRESSION OR DEPRESSION GETTING WORSE AND TO EDUCATE ON HOW TO FIND HELP. PT / FACILITY TECHNICIAN MAY EDUCATE ON PAIN MANAGEMENT CLINICALLY INDICATED, INCLUDING NON-PHARMACOLOGICAL PAIN REDUCTION TECHNIQUES PT / FACILITY TECHNICIAN TO MONITOR FOR HYPO/HYPERGLYCEMIA AND CONDUCT ROUTINE FOOT INSPECTIONS. RECORD PATIENT REPORTED BLOOD SUGAR LEVELS AND NOTIFY PHYSICIAN AND/OR THE RN CLINICAL ASSISTANT MANAGER FOR PHYSICIAN NOTIFICATION IF BLOOD SUGAR LEVELS ARE OUTSIDE ORDERED PARAMETERS. TEACH PATIENT/CAREGIVER ON DAILY FOOT INSPECTIONS PT / FACILITY TECHNICIAN TO INSTRUCT PATIENT/CAREGIVER ON RISK FOR HOSPITALIZATION/EMERGENCY ROOM VISITS, TEACH SIGNS AND SYMPTOMS THAT PUT PATIENT AT RISK, WHEN TO NOTIFY NURSE/PHYSICIAN OF COMPLICATIONS/DECLINE, AND WHEN TO CALL 911. PT/FACILITY TECHNICIAN TO EDUCATE ON ARTHRITIS SELF-MANAGEMENT PT / FACILITY TECHNICIAN TO EDUCATE ON HEART FAILURE SELF-MANAGEMENT PT / FACILITY TECHNICIAN TO EDUCATE ON HYPERTENSION SELF-MANAGEMENT PT TO ASSESS / FACILITY TECHNICIAN TO MONITOR CARDIO/RESPIRATORY SYSTEM; AND NOTIFY THE PHYSICIAN AND/OR THE RN CLINICAL ASSISTANT MANAGER FOR PHYSICIAN NOTIFICATION FOR EARLY SIGNS AND SYMPTOMS OF EXACERBATION OR DETERIORATION. PT / FACILITY TECHNICIAN TO EDUCATE ON ATRIAL FIBRILLATION SELF-MANAGEMENT. PT / FACILITY TECHNICIAN TO EDUCATE ON PNEUMONIA / ASPIRATION PNEUMONIA SELF-MANAGEMENT. PT/FACILITY TECHNICIAN TO IDENTIFY FALL RISK FACTORS; EDUCATE THE PATIENT/CAREGIVER ON WAYS TO REDUCE FALL RISK FACTORS AND ESTABLISH HOME EXERCISE PROGRAM TO MINIMIZE FALL RISK. MAY TEACH THE PATIENT FLOOR RECOVERY WHEN CLINICALLY APPROPRIATE [code = PT TO EVALUATE, OBSERVE / ASSESS, AND MONITOR, FACILITY TECHNICIAN TO OBSERVE AND MONITOR, PROVIDE SKILLED THERAPEUTIC INTERVENTION, ACTIVITY, EDUCATION, AND TRAINING TO ADDRESS GEN. WEAKNESS, POOR OVERALL ACTIVITY TOLERANCE, AND FUNCTIONAL LIMITATIONS IMPACTING SAFETY AND INDEPENDENCE. BED MOBILITY (PT/FACILITY TECHNICIAN) PT/FACILITY TECHNICIAN TO PROVIDE GAIT TRAINING FOR IMPROVED MOBILITY AND /OR TO NORMALIZE GAIT PATTERN THERAPEUTIC EXERCISES AND ESTABLISHING A HOME EXERCISE PROGRAM (PT/FACILITY TECHNICIAN) PT/FACILITY TECHNICIAN TO PROVIDE STAIR TRAINING PT / FACILITY TECHNICIAN TO MONITOR AND EDUCATE ON OXYGEN SATURATION DURING ADLS/IADLS, NOTIFY PHYSICIAN AND/OR THE RN CLINICAL ASSISTANT MANAGER FOR PHYSICIAN NOTIFICATION AND IF O2 SATS BELOW PHYSICIAN ORDERED PARAMETERS AFTER 10 MIN OF REST PT / FACILITY TECHNICIAN TO OBSERVE FOR EARLY SIGNS AND SYMPTOMS OF DEPRESSION OR DEPRESSION GETTING WORSE AND TO EDUCATE ON HOW TO FIND HELP. PT / FACILITY TECHNICIAN MAY EDUCATE ON PAIN MANAGEMENT CLINICALLY INDICATED, INCLUDING NON-PHARMACOLOGICAL PAIN REDUCTION TECHNIQUES PT / FACILITY TECHNICIAN TO MONITOR FOR HYPO/HYPERGLYCEMIA AND CONDUCT ROUTINE FOOT INSPECTIONS. RECORD PATIENT REPORTED BLOOD SUGAR LEVELS AND NOTIFY PHYSICIAN AND/OR THE RN CLINICAL ASSISTANT MANAGER FOR PHYSICIAN NOTIFICATION IF BLOOD SUGAR LEVELS ARE OUTSIDE ORDERED PARAMETERS. TEACH PATIENT/CAREGIVER ON DAILY FOOT INSPECTIONS PT / FACILITY TECHNICIAN TO INSTRUCT PATIENT/CAREGIVER ON RISK FOR HOSPITALIZATION/EMERGENCY ROOM VISITS, TEACH SIGNS AND SYMPTOMS THAT PUT PATIENT AT RISK, WHEN TO NOTIFY NURSE/PHYSICIAN OF COMPLICATIONS/DECLINE, AND WHEN TO CALL 911. PT/FACILITY TECHNICIAN TO EDUCATE ON ARTHRITIS SELF-MANAGEMENT PT / FACILITY TECHNICIAN TO EDUCATE ON HEART FAILURE SELF-MANAGEMENT PT / FACILITY TECHNICIAN TO EDUCATE ON HYPERTENSION SELF-MANAGEMENT PT TO ASSESS / FACILITY TECHNICIAN TO MONITOR CARDIO/RESPIRATORY SYSTEM; AND NOTIFY THE PHYSICIAN AND/OR THE RN CLINICAL ASSISTANT MANAGER FOR PHYSICIAN NOTIFICATION FOR EARLY SIGNS AND SYMPTOMS OF EXACERBATION OR DETERIORATION. PT / FACILITY TECHNICIAN TO EDUCATE ON ATRIAL FIBRILLATION SELF-MANAGEMENT. PT / FACILITY TECHNICIAN TO EDUCATE ON PNEUMONIA / ASPIRATION PNEUMONIA SELF-MANAGEMENT. PT/FACILITY TECHNICIAN TO IDENTIFY FALL RISK FACTORS; EDUCATE THE PATIENT/CAREGIVER ON WAYS TO REDUCE FALL RISK FACTORS AND ESTABLISH HOME EXERCISE PROGRAM TO MINIMIZE FALL RISK. MAY TEACH THE PATIENT FLOOR RECOVERY WHEN CLINICALLY APPROPRIATE] Future Scheduled Test AGENCY MAY PERFORM A RESUMPTION OF CARE VISIT FOLLOWING ANY HOSPITAL ADMISSION. OT TO EVALUATE, OBSERVE / ASSESS, AND MONITOR, SALESPERSON MEATS TO OBSERVE AND MONITOR, PROVIDE SKILLED THERAPEUTIC INTERVENTION, ACTIVITY, EDUCATION, AND TRAINING TO ADDRESS SAFETY AND INDEPENDENCE OF ADLS AND FUNCTIONAL TRANSFERS IN HOME ENVIRONMENT. ACTIVITIES OF DAILY LIVING (OT/MARIANNE) THERAPEUTIC EXERCISE (OT/SALESPERSON MEATS) ENERGY CONSERVATION/ACTIVITY DEMAND (OT/SALESPERSON MEATS) OT/SALESPERSON MEATS TO MONITOR AND EDUCATE ON OXYGEN SATURATION DURING ADLS/IADLS, NOTIFY PHYSICIAN AND/OR THE RN CLINICAL ASSISTANT MANAGER FOR PHYSICIAN NOTIFICATION AND IF O2 SATS BELOW 90% AFTER 10 MIN OF REST. OT / SALESPERSON MEATS TO IDENTIFY FALL RISK FACTORS; EDUCATE THE PATIENT/CAREGIVER ON WAYS TO REDUCE FALL RISK FACTORS AND ESTABLISH HOME EXERCISE PROGRAM TO MINIMIZE FALL RISK. MAY TEACH THE PATIENT FLOOR RECOVERY WHEN CLINICALLY APPROPRIATE. OT/SALESPERSON MEATS TO EDUCATE ON HYPERTENSION SELF-MANAGEMENT OT/MARIANNE TO EDUCATE ON ATRIAL FIBRILLATION SELF-MANAGEMENT. [code = AGENCY MAY PERFORM A RESUMPTION OF CARE VISIT FOLLOWING ANY HOSPITAL ADMISSION. OT TO EVALUATE, OBSERVE / ASSESS, AND MONITOR, SALESPERSON MEATS TO OBSERVE AND MONITOR, PROVIDE SKILLED THERAPEUTIC INTERVENTION, ACTIVITY, EDUCATION, AND TRAINING TO ADDRESS SAFETY AND INDEPENDENCE OF ADLS AND FUNCTIONAL TRANSFERS IN HOME ENVIRONMENT. ACTIVITIES OF DAILY LIVING (OT/MARIANNE) THERAPEUTIC EXERCISE (OT/SALESPERSON MEATS) ENERGY CONSERVATION/ACTIVITY DEMAND (OT/MARIANNE) OT/SALESPERSON MEATS TO MONITOR AND EDUCATE ON OXYGEN SATURATION DURING ADLS/IADLS, NOTIFY PHYSICIAN AND/OR THE RN CLINICAL ASSISTANT MANAGER FOR PHYSICIAN NOTIFICATION AND IF O2 SATS BELOW 90% AFTER 10 MIN OF REST. OT / MARIANNE TO IDENTIFY FALL RISK FACTORS; EDUCATE THE PATIENT/CAREGIVER ON WAYS TO REDUCE FALL RISK FACTORS AND ESTABLISH HOME EXERCISE PROGRAM TO MINIMIZE FALL RISK. MAY TEACH THE PATIENT FLOOR RECOVERY WHEN CLINICALLY APPROPRIATE. OT/SALESPERSON MEATS TO EDUCATE ON HYPERTENSION SELF-MANAGEMENT OT/MARIANNE TO [...] NEW ADMISSION [facility] [id number]
--- OUTSIDE RECORDS SUMMARY | 2025-04-06 18:00 | XMS_ITS | Clinical Summary ---
Author Organization Unknown Care Team Providers Care Deposition Reporter Name Role Phone DIGNA ARIEL, ESTRELLA Unavailable Unava dinora STOKES RN, FRANKIE Unavailable Unavailabl e KARI PT, DIDI Unavailable Unavailable NAT LEGAL CASHIER, GAUDENCIO Unavailable Unavailabl e RADHA OT, ROLANDO Unavailable Unavailable JOANNE STEVEN, HATTIE Unavailable Unavailable Payers Payer Name Policy Type Policy Number Effective Date Expira tion Date MEDICARE.[facility] [id number] Problems Condition Name Condition Details Condition Category Status Onset Date Resolution Date Last Treatment Date Treating Clinician Comments 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 02-07 [...] OF PNEUMONIA (RECURRENT) Active 02-07 00:00: 00 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) USE OF SYSTEMIC STEROIDS [...] 80 mg tablet 02-07 00:00: 00 Yes [id number] CHOLESTEROL 1 tablet DAILY 1 tablet DAILY (route: oral) Med Classific ation: Cardiovas cular Therapy Agents digoxin 125 mcg (0.125 mg) tablet 02-07 00:00: 00 02-21 23:59 :00 No [id number] HEART RHYTHM 1 tablet DAILY 1 tablet DAILY (route: oral) Med Classific ation: Cardiovas cular Therapy Agents escitalopra m 10 mg tablet 02-07 00:00: 00 Yes [id number] MOOD 1 tablet DAILY 1 tablet DAILY (route: oral) Med Classific ation: Central Nervous System Agents ezetimibe 10 mg tablet 02-07 00:00: 00 Yes [id number] CHOLESTEROL 1 tablet DAILY 1 tablet DAILY (route: oral) Med Classific ation: Cardiovas cular Therapy Agents metoprolol succinate ER 25 mg tablet,exte nded release 24 hr 02-07 00:00: 00 02-21 23:59 :00 No [id number] BLOOD PRESSURE 0.5 tablet DAILY 0.5 tablet DAILY (route: oral) Med Classific ation: Cardiovas cular Therapy Agents pantoprazol e 40 mg tablet,joão yed release 02-07 00:00: 00 02-21 23:59 :00 No [id number] STOMACH ACID 1 tablet DAILY 1 tablet DAILY (route: oral) Med Classific ation: Gastroint estinal Therapy Agents prednisone 5 mg tablet 02-07 00:00: 00 Yes [id number] ADRENAL INSUFFICIEN CY 1 tablet DAILY 1 tablet DAILY (route: oral) Med Classific ation: Endocrine spironolact one 25 mg tablet 02-07 00:00: 00 Yes [id number] FLUID RETENTION 0.5 tablet DAILY 0.5 tablet DAILY (route: oral) Med Classific ation: Cardiovas cular Therapy Agents tamsulosin 0.4 mg capsule 02-07 00:00: 00 02-21 23:59 :00 No [id number] URINARY HEALTH 1 capsule DAILY 1 capsule DAILY (route: oral) Med Classific ation: Genitouri nary Therapy acetaminoph en 325 mg tablet 2024-05 00:00: 00 Yes [id number] PAIN 2 tablet 2 TIMES DAILY 2 tablet 2 TIMES DAILY (route: oral) Med Classific ation: Analgesic , Anti-infl ammatory or Antipyret ic aspirin 81 mg tablet 2024-05 00:00: 00 Yes [id number] ANTICOAGULA NT 1 tablet DAILY 1 tablet DAILY (route: oral) Med Classific ation: Hematolog ical Agents ipratropium 0.5 mg-albutero l 3 mg (2.5 mg base)/3 mL nebulizatio n soln 2024-05 00:00: 00 Yes [id number] COPD 3 mL EVERY 6 HOURS 3 mL EVERY 6 HOURS (route: inhalation ) Med Classific ation: Respirato ry Therapy Agents Lanoxin 62.5 mcg (0.0625 mg) tablet 2024-05 00:00: 00 Yes [id number] CHF 1 tablet DAILY 1 tablet DAILY (route: oral) Med Classific ation: Cardiovas cular Therapy Agents Lasix 20 mg tablet 2024-05 00:00: 00 Yes [id number] CHF 1 tablet DAILY 1 tablet DAILY (route: oral) Med Classific ation: Cardiovas cular Therapy Agents Toprol XL 25 mg tablet,exte nded release 2024-05 00:00: 00 Yes [id number] BP 25 mg DAILY 25 mg DAILY [...] SYSTEM MANAGEMENT; RN TO ASSESS AND TEACH, SLIP COVER SEWER/TOYS AND GAMES HAND FINISHER TO OBSERVE AND TEACH RELATED TO ALTERED RESPIRATORY STATUS TO MINIMIZE COMPLICATIONS AND REDUCE HOSPITALIZATION. [code = SN 1WK9 PT 1WK1 OT EFFECTIVE 02/10/2025K1 RESPIRATORY SYSTEM MANAGEMENT; RN TO ASSESS AND TEACH, SLIP COVER SEWER/TOYS AND GAMES HAND FINISHER TO OBSERVE AND TEACH RELATED TO ALTERED RESPIRATORY STATUS TO MINIMIZE COMPLICATIONS AND REDUCE HOSPITALIZATION.] Future Scheduled Test TRACHEOSTO MY CARE MANAGEMENT; RN/SLIP COVER SEWER/TOYS AND GAMES HAND FINISHER TO INSTRUCT PATIENT/CAREGIVER ON CARE AND MANAGEMENT OF TRACHEOSTOMY. RN/ SLIP COVER SEWER/TOYS AND GAMES HAND FINISHER TO PROVIDE SKILLED TEACHING ON TRACH COLLAR SUCTIONING PRN WITH 14 FR SUCTION CATHETER PER PATIENT TRACH CARE WITH INNER CANNULA: REMOVE INNER CANNULA, CLEANSE WITH NORMAL SALINE AND OR STERILE WATER AND REINSERT NON-DISPOSABLE CANNULA SIZE OF INNER CANNULA 5 BROOKS [code = TRACHEOSTOMY CARE MANAGEMENT; RN/SLIP COVER SEWER/TOYS AND GAMES HAND FINISHER TO INSTRUCT PATIENT/CAREGIVER ON CARE AND MANAGEMENT OF TRACHEOSTOMY. RN/ SLIP COVER SEWER/TOYS AND GAMES HAND FINISHER TO PROVIDE SKILLED TEACHING ON TRACH COLLAR SUCTIONING PRN WITH 14 FR SUCTION CATHETER PER PATIENT TRACH CARE WITH INNER CANNULA: REMOVE INNER CANNULA, CLEANSE WITH NORMAL SALINE AND OR STERILE WATER AND REINSERT NON-DISPOSABLE CANNULA SIZE OF INNER CANNULA 5 BROOKS] Future Scheduled Test FALL REDUC TION MANAGEMENT; RN TO ASSESS AND OBSERVE, SLIP COVER SEWER/TOYS AND GAMES HAND FINISHER TO OBSERVE FALL RISK FACTORS AND EDUCATE PATIENT/CAREGIVER ON STRATEGIES TO MINIMIZE THE RISK OF FALLING. [code = FALL REDUCTION MANAGEMENT; RN TO ASSESS AND OBSERVE, SLIP COVER SEWER/TOYS AND GAMES HAND FINISHER TO OBSERVE FALL RISK FACTORS AND EDUCATE PATIENT/CAREGIVER ON STRATEGIES TO MINIMIZE THE RISK OF FALLING.] Future Scheduled Test ANEMIA MAN AGEMENT; RN TO ASSESS AND TEACH, TOYS AND GAMES HAND FINISHER/SLIP COVER SEWER TO OBSERVE AND TEACH AND PROVIDE EDUCATION ON ANEMIA. [code = ANEMIA MANAGEMENT; RN TO ASSESS AND TEACH, TOYS AND GAMES HAND FINISHER/SLIP COVER SEWER TO OBSERVE AND TEACH AND PROVIDE EDUCATION ON ANEMIA.] Future Scheduled Test RN TO OBSE RVE, ASSESS, EVALUATE, AND DEVELOP AN INDIVIDUALIZED PLAN OF CARE. AGENCY MAY ACCEPT ORDERS FROM CONSULTING PHYSICIANS RN TO OBSERVE AND ASSESS, SLIP COVER SEWER/TOYS AND GAMES HAND FINISHER TO OBSERVE FOR RISK FOR FALLS AND INSTRUCT IN FALL PREVENTION, HOME SAFETY, MEDICATION MANAGEMENT, INFECTION PREVENTION, AND NUTRITION MANAGEMENT. RN/SLIP COVER SEWER/TOYS AND GAMES HAND FINISHER NURSE MAY PERFORM O2 SATURATION LEVEL ON ADMISSION AND PRN FOR RN TO ASSESS/SLIP COVER SEWER TO OBSERVE PATIENT, WITH NOTIFICATION TO THE PHYSICIAN IF SATURATION IS 90% IN THE ABSENCE OF MORE SPECIFIC PARAMETERS FROM THE PHYSICIAN. AGENCY MAY PERFORM A RESUMPTION OF CARE VISIT FOLLOWING ANY HOSPITAL ADMISSION. RN/SLIP COVER SEWER/TOYS AND GAMES HAND FINISHER TO MONITOR CO-MORBID CONDITIONS LISTED ON THE PLAN OF CARE AND ANY NEW CONDITIONS THAT PRESENT THEMSELVES DURING THIS EPISODE TO IDENTIFY CHANGES AND INTERVENE TO MINIMIZE COMPLICATIONS. [code = RN TO OBSERVE, ASSESS, EVALUATE, AND DEVELOP AN INDIVIDUALIZED PLAN OF CARE. AGENCY MAY ACCEPT ORDERS FROM CONSULTING PHYSICIANS RN TO OBSERVE AND ASSESS, SLIP COVER SEWER/TOYS AND GAMES HAND FINISHER TO OBSERVE FOR RISK FOR FALLS AND INSTRUCT IN FALL PREVENTION, HOME SAFETY, MEDICATION MANAGEMENT, INFECTION PREVENTION, AND NUTRITION MANAGEMENT. RN/SLIP COVER SEWER/TOYS AND GAMES HAND FINISHER NURSE MAY PERFORM O2 SATURATION LEVEL ON ADMISSION AND PRN FOR RN TO ASSESS/SLIP COVER SEWER TO OBSERVE PATIENT, WITH NOTIFICATION TO THE PHYSICIAN IF SATURATION IS 90% IN THE ABSENCE OF MORE SPECIFIC PARAMETERS FROM THE PHYSICIAN. AGENCY MAY PERFORM A RESUMPTION OF CARE VISIT FOLLOWING ANY HOSPITAL ADMISSION. RN/SLIP COVER SEWER/TOYS AND GAMES HAND FINISHER TO MONITOR CO-MORBID CONDITIONS LISTED ON THE PLAN OF CARE AND ANY NEW CONDITIONS THAT PRESENT THEMSELVES DURING THIS EPISODE TO IDENTIFY CHANGES AND INTERVENE TO MINIMIZE COMPLICATIONS.] Future Scheduled Test PAIN MANAG EMENT; RN TO ASSESS AND TEACH, TOYS AND GAMES HAND FINISHER/SLIP COVER SEWER TO OBSERVE AND TEACH AND PROVIDE EDUCATION ON PAIN MANAGEMENT TECHNIQUES. [code = PAIN MANAGEMENT; RN TO ASSESS AND TEACH, TOYS AND GAMES HAND FINISHER/SLIP COVER SEWER TO OBSERVE AND TEACH AND PROVIDE EDUCATION ON PAIN MANAGEMENT TECHNIQUES.] Future Scheduled Test RISK FOR H OSPITALIZATION; RN TO ASSESS/TEACH, TOYS AND GAMES HAND FINISHER/SLIP COVER SEWER TO OBSERVE/TEACH PATIENT/CAREGIVER ON RISK FOR HOSPITALIZATION/EMERGENCY ROOM VISITS, TEACH SIGNS AND SYMPTOMS THAT PUT PATIENT AT RISK, WHEN TO NOTIFY NURSE/PHYSICIAN OF COMPLICATIONS/DECLINE, AND WHEN TO CALL 911. [code = RISK FOR HOSPITALIZATION; RN TO ASSESS/TEACH, TOYS AND GAMES HAND FINISHER/SLIP COVER SEWER TO OBSERVE/TEACH PATIENT/CAREGIVER ON RISK FOR HOSPITALIZATION/EMERGENCY ROOM VISITS, TEACH SIGNS AND SYMPTOMS THAT PUT PATIENT AT RISK, WHEN TO NOTIFY NURSE/PHYSICIAN OF COMPLICATIONS/DECLINE, AND WHEN TO CALL 911.] Future Scheduled Test CARDIOVASC ULAR SYSTEM; RN TO ASSESS/TEACH, SLIP COVER SEWER/TOYS AND GAMES HAND FINISHER TO OBSERVE/TEACH RELATED TO ALTERED CARDIOVASCULAR STATUS TO MINIMIZE COMPLICATIONS AND REDUCE HOSPITALIZATION. [code = CARDIOVASCULAR SYSTEM; RN TO ASSESS/TEACH, SLIP COVER SEWER/TOYS AND GAMES HAND FINISHER TO OBSERVE/TEACH RELATED TO ALTERED CARDIOVASCULAR STATUS TO MINIMIZE COMPLICATIONS AND REDUCE HOSPITALIZATION.] Future Scheduled Test HYPERTENSI ON MANAGEMENT; RN TO ASSESS AND TEACH, SLIP COVER SEWER/TOYS AND GAMES HAND FINISHER TO OBSERVE AND TEACH WARNING SIGNS AND SYMPTOMS TO AVOID HOSPITALIZATION. [code = HYPERTENSION MANAGEMENT; RN TO ASSESS AND TEACH, SLIP COVER SEWER/TOYS AND GAMES HAND FINISHER TO OBSERVE AND TEACH WARNING SIGNS AND SYMPTOMS TO AVOID HOSPITALIZATION.] Future Scheduled Test HEART FAIL URE MONITORING RN/TOYS AND GAMES HAND FINISHER/SLIP COVER SEWER TO MONITOR PATIENT FOR SIGNS AND SYMPTOMS OF HEART FAILURE EXACERBATION, MONITOR FOR ADHERENCE WITH MEDICATION AND HEART FAILURE MANAGEMENT REGIMEN. [code = HEART FAILURE MONITORING RN/TOYS AND GAMES HAND FINISHER/SLIP COVER SEWER TO MONITOR PATIENT FOR SIGNS AND SYMPTOMS OF HEART FAILURE EXACERBATION, MONITOR FOR ADHERENCE WITH MEDICATION AND HEART FAILURE MANAGEMENT REGIMEN.] Future Scheduled Test DIABETES M ONITORING RN/TOYS AND GAMES HAND FINISHER/SLIP COVER SEWER TO MONITOR BLOOD SUGAR LOG FOR BLOOD SUGAR READINGS THAT ARE BEING CHECKED BY PATIENT, CAREGIVER NEEDED FOR SIGNS AND SYMPTOMS OF HYPER/HYPOGLYCEMIA. PATIENT THERAPEUTIC BLOOD SUGAR PARAMETERS ARE 70 - 300. REPORT BLOOD SUGARS OUT OF RANGE TO PHYSICIAN. NURSE MAY PERFORM FINGER STICK BLOOD GLUCOSE NEEDED FOR SIGNS AND SYMPTOMS OF HYPO AND HYPERGLYCEMIA. RN/TOYS AND GAMES HAND FINISHER/SLIP COVER SEWER TO MONITOR ADHERENCE OF PATIENT/CAREGIVER PERFORMING DIABETIC FOOT CARE AND MAY PERFORM DIABETIC FOOT CARE PRN. RN/TOYS AND GAMES HAND FINISHER/SLIP COVER SEWER TO MONITOR FOR ADHERENCE TO DIABETIC SELF-CARE AND MANAGEMENT INCLUDING MEDICATIONS. [code = DIABETES MONITORING RN/TOYS AND GAMES HAND FINISHER/SLIP COVER SEWER TO MONITOR BLOOD SUGAR LOG FOR BLOOD SUGAR READINGS THAT ARE BEING CHECKED BY PATIENT, CAREGIVER NEEDED FOR SIGNS AND SYMPTOMS OF HYPER/HYPOGLYCEMIA. PATIENT THERAPEUTIC BLOOD SUGAR PARAMETERS ARE 70 - 300. REPORT BLOOD SUGARS OUT OF RANGE TO PHYSICIAN. NURSE MAY PERFORM FINGER STICK BLOOD GLUCOSE NEEDED FOR SIGNS AND SYMPTOMS OF HYPO AND HYPERGLYCEMIA. RN/TOYS AND GAMES HAND FINISHER/SLIP COVER SEWER TO MONITOR ADHERENCE OF PATIENT/CAREGIVER PERFORMING DIABETIC FOOT CARE AND MAY PERFORM DIABETIC FOOT CARE PRN. RN/TOYS AND GAMES HAND FINISHER/SLIP COVER SEWER TO MONITOR FOR ADHERENCE TO DIABETIC SELF-CARE AND MANAGEMENT INCLUDING MEDICATIONS.] Future Scheduled Test HYPOTENSIO N MANAGEMENT; RN TO ASSESS AND TEACH/ SLIP COVER SEWER /TOYS AND GAMES HAND FINISHER TO OBSERVE AND TEACH WARNING SIGNS AND SYMPTOMS TO AVOID HOSPITALIZATION. [code = HYPOTENSION MANAGEMENT; RN TO ASSESS AND TEACH/ SLIP COVER SEWER /TOYS AND GAMES HAND FINISHER TO OBSERVE AND TEACH WARNING SIGNS AND SYMPTOMS TO AVOID HOSPITALIZATION.] Future Scheduled Test ARRHYTHMIA MANAGEMENT; RN TO ASSESS AND TEACH, SLIP COVER SEWER/TOYS AND GAMES HAND FINISHER TO OBSERVE AND TEACH WARNING SIGNS AND SYMPTOMS TO AVOID HOSPITALIZATION. [code = ARRHYTHMIA MANAGEMENT; RN TO ASSESS AND TEACH, SLIP COVER SEWER/TOYS AND GAMES HAND FINISHER TO OBSERVE AND TEACH WARNING SIGNS AND SYMPTOMS TO AVOID HOSPITALIZATION.] Future Scheduled Test MEDICATION MANAGEMENT; RN/SLIP COVER SEWER/TOYS AND GAMES HAND FINISHER TO REVIEW MEDICATIONS FOR INTERACTIONS, EFFECTIVENESS OF DRUG THERAPY, AND SIGNS/SYMPTOMS OF ADVERSE REACTIONS. MAY INSTRUCT AND REINFORCE MEDICATION TEACHING RELATED TO THE USE OF MEDICATIONS, DOSAGE, FREQUENCY, PURPOSE, SIDE EFFECTS, AND TO REPORT COMPLICATIONS. [code = MEDICATION MANAGEMENT; RN/SLIP COVER SEWER/TOYS AND GAMES HAND FINISHER TO REVIEW MEDICATIONS FOR INTERACTIONS, EFFECTIVENESS OF [...] EVAL UATE, OBSERVE / ASSESS, AND MONITOR, LEGAL CASHIER TO OBSERVE AND MONITOR, PROVIDE SKILLED THERAPEUTIC INTERVENTION, ACTIVITY, EDUCATION, AND TRAINING TO ADDRESS GEN. WEAKNESS, POOR OVERALL ACTIVITY TOLERANCE, AND FUNCTIONAL LIMITATIONS IMPACTING SAFETY AND INDEPENDENCE. BED MOBILITY (PT/LEGAL CASHIER) PT/LEGAL CASHIER TO PROVIDE GAIT TRAINING FOR IMPROVED MOBILITY AND /OR TO NORMALIZE GAIT PATTERN THERAPEUTIC EXERCISES AND ESTABLISHING A HOME EXERCISE PROGRAM (PT/LEGAL CASHIER) PT/LEGAL CASHIER TO PROVIDE STAIR TRAINING PT / LEGAL CASHIER TO MONITOR AND EDUCATE ON OXYGEN SATURATION DURING ADLS/IADLS, NOTIFY PHYSICIAN AND/OR THE RN CLINICAL ENTRY ENGINEER FOR PHYSICIAN NOTIFICATION AND IF O2 SATS BELOW PHYSICIAN ORDERED PARAMETERS AFTER 10 MIN OF REST PT / LEGAL CASHIER TO OBSERVE FOR EARLY SIGNS AND SYMPTOMS OF DEPRESSION OR DEPRESSION GETTING WORSE AND TO EDUCATE ON HOW TO FIND HELP. PT / LEGAL CASHIER MAY EDUCATE ON PAIN MANAGEMENT CLINICALLY INDICATED, INCLUDING NON-PHARMACOLOGICAL PAIN REDUCTION TECHNIQUES PT / LEGAL CASHIER TO MONITOR FOR HYPO/HYPERGLYCEMIA AND CONDUCT ROUTINE FOOT INSPECTIONS. RECORD PATIENT REPORTED BLOOD SUGAR LEVELS AND NOTIFY PHYSICIAN AND/OR THE RN CLINICAL ENTRY ENGINEER FOR PHYSICIAN NOTIFICATION IF BLOOD SUGAR LEVELS ARE OUTSIDE ORDERED PARAMETERS. TEACH PATIENT/CAREGIVER ON DAILY FOOT INSPECTIONS PT / LEGAL CASHIER TO INSTRUCT PATIENT/CAREGIVER ON RISK FOR HOSPITALIZATION/EMERGENCY ROOM VISITS, TEACH SIGNS AND SYMPTOMS THAT PUT PATIENT AT RISK, WHEN TO NOTIFY NURSE/PHYSICIAN OF COMPLICATIONS/DECLINE, AND WHEN TO CALL 911. PT/LEGAL CASHIER TO EDUCATE ON ARTHRITIS SELF-MANAGEMENT PT / LEGAL CASHIER TO EDUCATE ON HEART FAILURE SELF-MANAGEMENT PT / LEGAL CASHIER TO EDUCATE ON HYPERTENSION SELF-MANAGEMENT PT TO ASSESS / LEGAL CASHIER TO MONITOR CARDIO/RESPIRATORY SYSTEM; AND NOTIFY THE PHYSICIAN AND/OR THE RN CLINICAL ENTRY ENGINEER FOR PHYSICIAN NOTIFICATION FOR EARLY SIGNS AND SYMPTOMS OF EXACERBATION OR DETERIORATION. PT / LEGAL CASHIER TO EDUCATE ON ATRIAL FIBRILLATION SELF-MANAGEMENT. PT / LEGAL CASHIER TO EDUCATE ON PNEUMONIA / ASPIRATION PNEUMONIA SELF-MANAGEMENT. PT/LEGAL CASHIER TO IDENTIFY FALL RISK FACTORS; EDUCATE THE PATIENT/CAREGIVER ON WAYS TO REDUCE FALL RISK FACTORS AND ESTABLISH HOME EXERCISE PROGRAM TO MINIMIZE FALL RISK. MAY TEACH THE PATIENT FLOOR RECOVERY WHEN CLINICALLY APPROPRIATE [code = PT TO EVALUATE, OBSERVE / ASSESS, AND MONITOR, LEGAL CASHIER TO OBSERVE AND MONITOR, PROVIDE SKILLED THERAPEUTIC INTERVENTION, ACTIVITY, EDUCATION, AND TRAINING TO ADDRESS GEN. WEAKNESS, POOR OVERALL ACTIVITY TOLERANCE, AND FUNCTIONAL LIMITATIONS IMPACTING SAFETY AND INDEPENDENCE. BED MOBILITY (PT/LEGAL CASHIER) PT/LEGAL CASHIER TO PROVIDE GAIT TRAINING FOR IMPROVED MOBILITY AND /OR TO NORMALIZE GAIT PATTERN THERAPEUTIC EXERCISES AND ESTABLISHING A HOME EXERCISE PROGRAM (PT/LEGAL CASHIER) PT/LEGAL CASHIER TO PROVIDE STAIR TRAINING PT / LEGAL CASHIER TO MONITOR AND EDUCATE ON OXYGEN SATURATION DURING ADLS/IADLS, NOTIFY PHYSICIAN AND/OR THE RN CLINICAL ENTRY ENGINEER FOR PHYSICIAN NOTIFICATION AND IF O2 SATS BELOW PHYSICIAN ORDERED PARAMETERS AFTER 10 MIN OF REST PT / LEGAL CASHIER TO OBSERVE FOR EARLY SIGNS AND SYMPTOMS OF DEPRESSION OR DEPRESSION GETTING WORSE AND TO EDUCATE ON HOW TO FIND HELP. PT / LEGAL CASHIER MAY EDUCATE ON PAIN MANAGEMENT CLINICALLY INDICATED, INCLUDING NON-PHARMACOLOGICAL PAIN REDUCTION TECHNIQUES PT / LEGAL CASHIER TO MONITOR FOR HYPO/HYPERGLYCEMIA AND CONDUCT ROUTINE FOOT INSPECTIONS. RECORD PATIENT REPORTED BLOOD SUGAR LEVELS AND NOTIFY PHYSICIAN AND/OR THE RN CLINICAL ENTRY ENGINEER FOR PHYSICIAN NOTIFICATION IF BLOOD SUGAR LEVELS ARE OUTSIDE ORDERED PARAMETERS. TEACH PATIENT/CAREGIVER ON DAILY FOOT INSPECTIONS PT / LEGAL CASHIER TO INSTRUCT PATIENT/CAREGIVER ON RISK FOR HOSPITALIZATION/EMERGENCY ROOM VISITS, TEACH SIGNS AND SYMPTOMS THAT PUT PATIENT AT RISK, WHEN TO NOTIFY NURSE/PHYSICIAN OF COMPLICATIONS/DECLINE, AND WHEN TO CALL 911. PT/LEGAL CASHIER TO EDUCATE ON ARTHRITIS SELF-MANAGEMENT PT / LEGAL CASHIER TO EDUCATE ON HEART FAILURE SELF-MANAGEMENT PT / LEGAL CASHIER TO EDUCATE ON HYPERTENSION SELF-MANAGEMENT PT TO ASSESS / LEGAL CASHIER TO MONITOR CARDIO/RESPIRATORY SYSTEM; AND NOTIFY THE PHYSICIAN AND/OR THE RN CLINICAL ENTRY ENGINEER FOR PHYSICIAN NOTIFICATION FOR EARLY SIGNS AND SYMPTOMS OF EXACERBATION OR DETERIORATION. PT / LEGAL CASHIER TO EDUCATE ON ATRIAL FIBRILLATION SELF-MANAGEMENT. PT / LEGAL CASHIER TO EDUCATE ON PNEUMONIA / ASPIRATION PNEUMONIA SELF-MANAGEMENT. PT/LEGAL CASHIER TO IDENTIFY FALL RISK FACTORS; EDUCATE THE PATIENT/CAREGIVER ON WAYS TO REDUCE FALL RISK FACTORS AND ESTABLISH HOME EXERCISE PROGRAM TO MINIMIZE FALL RISK. MAY TEACH THE PATIENT FLOOR RECOVERY WHEN CLINICALLY APPROPRIATE] Future Scheduled Test AGENCY MAY PERFORM A RESUMPTION OF CARE VISIT FOLLOWING ANY HOSPITAL ADMISSION. OT TO EVALUATE, OBSERVE / ASSESS, AND MONITOR, EMERGENCY VEHICLE TECHNICIAN TO OBSERVE AND MONITOR, PROVIDE SKILLED THERAPEUTIC INTERVENTION, ACTIVITY, EDUCATION, AND TRAINING TO ADDRESS SAFETY AND INDEPENDENCE OF ADLS AND FUNCTIONAL TRANSFERS IN HOME ENVIRONMENT. ACTIVITIES OF DAILY LIVING (OT/MARIANNE) THERAPEUTIC EXERCISE (OT/EMERGENCY VEHICLE TECHNICIAN) ENERGY CONSERVATION/ACTIVITY DEMAND (OT/EMERGENCY VEHICLE TECHNICIAN) OT/EMERGENCY VEHICLE TECHNICIAN TO MONITOR AND EDUCATE ON OXYGEN SATURATION DURING ADLS/IADLS, NOTIFY PHYSICIAN AND/OR THE RN CLINICAL ENTRY ENGINEER FOR PHYSICIAN NOTIFICATION AND IF O2 SATS BELOW 90% AFTER 10 MIN OF REST. OT / EMERGENCY VEHICLE TECHNICIAN TO IDENTIFY FALL RISK FACTORS; EDUCATE THE PATIENT/CAREGIVER ON WAYS TO REDUCE FALL RISK FACTORS AND ESTABLISH HOME EXERCISE PROGRAM TO MINIMIZE FALL RISK. MAY TEACH THE PATIENT FLOOR RECOVERY WHEN CLINICALLY APPROPRIATE. OT/EMERGENCY VEHICLE TECHNICIAN TO EDUCATE ON HYPERTENSION SELF-MANAGEMENT OT/MARIANNE TO EDUCATE ON ATRIAL FIBRILLATION SELF-MANAGEMENT. [code = AGENCY MAY PERFORM A RESUMPTION OF CARE VISIT FOLLOWING ANY HOSPITAL ADMISSION. OT TO EVALUATE, OBSERVE / ASSESS, AND MONITOR, EMERGENCY VEHICLE TECHNICIAN TO OBSERVE AND MONITOR, PROVIDE SKILLED THERAPEUTIC INTERVENTION, ACTIVITY, EDUCATION, AND TRAINING TO ADDRESS SAFETY AND INDEPENDENCE OF ADLS AND FUNCTIONAL TRANSFERS IN HOME ENVIRONMENT. ACTIVITIES OF DAILY LIVING (OT/MARIANNE) THERAPEUTIC EXERCISE (OT/EMERGENCY VEHICLE TECHNICIAN) ENERGY CONSERVATION/ACTIVITY DEMAND (OT/MARIANNE) OT/EMERGENCY VEHICLE TECHNICIAN TO MONITOR AND EDUCATE ON OXYGEN SATURATION DURING ADLS/IADLS, NOTIFY PHYSICIAN AND/OR THE RN CLINICAL ENTRY ENGINEER FOR PHYSICIAN NOTIFICATION AND IF O2 SATS BELOW 90% AFTER 10 MIN OF REST. OT / MARIANNE TO IDENTIFY FALL RISK FACTORS; EDUCATE THE PATIENT/CAREGIVER ON WAYS TO REDUCE FALL RISK FACTORS AND ESTABLISH HOME EXERCISE PROGRAM TO MINIMIZE FALL RISK. MAY TEACH THE PATIENT FLOOR RECOVERY WHEN CLINICALLY APPROPRIATE. OT/EMERGENCY VEHICLE TECHNICIAN TO EDUCATE ON HYPERTENSION SELF-MANAGEMENT OT/MARIANNE [...] End Date/Time Encounter Type Admission Type Attending [facility] Care Department Encounter ID Discharge Date Discharge Status Discharge Condition Discharge Reason Percent Goals Met 2025-02-07 00:00:00 2025-04-07 00:00:00 Outpatient NEW ADMISSION FRANKIE STOK[facility] [id number]
--- OUTSIDE RECORDS SUMMARY | 2025-04-06 18:00 | XMS_ITS | Clinical Summary ---
Author Organization Unknown Care Team Providers Care Adult School Counselor Name Role Phone DIGNA ARIEL, ESTRELLA Unavailable Unava dinora STOKES RN, FRANKIE Unavailable Unavailabl e KARI PT, DIDI Unavailable Unavailable NAT B2B SALES EXECUTIVE, GAUDENCIO Unavailable Unavailabl e RADHA OT, ROLANDO Unavailable Unavailable JOANNE STEVEN, HATTIE Unavailable Unavailable Payers Payer Name Policy Type Policy Number Effective Date Expira tion Date MEDICARE[facility] [id number] Problems Condition Name Condition Details Condition Category Status Onset Date Resolution Date Last Treatment Date Treating Clinician Comments 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 02-07 [...] OF PNEUMONIA (RECURRENT) Active 02-07 00:00: 00 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 STEROIDS Active 02-07 [...] 80 mg tablet 02-07 00:00: 00 Yes [id number] CHOLESTEROL 1 tablet DAILY 1 tablet DAILY (route: oral) Med Classific ation: Cardiovas cular Therapy Agents digoxin 125 mcg (0.125 mg) tablet 02-07 00:00: 00 02-21 23:59 :00 No [id number] HEART RHYTHM 1 tablet DAILY 1 tablet DAILY (route: oral) Med Classific ation: Cardiovas cular Therapy Agents escitalopra m 10 mg tablet 02-07 00:00: 00 Yes [id number] MOOD 1 tablet DAILY 1 tablet DAILY (route: oral) Med Classific ation: Central Nervous System Agents ezetimibe 10 mg tablet 02-07 00:00: 00 Yes [id number] CHOLESTEROL 1 tablet DAILY 1 tablet DAILY (route: oral) Med Classific ation: Cardiovas cular Therapy Agents metoprolol succinate ER 25 mg tablet,exte nded release 24 hr 02-07 00:00: 00 02-21 23:59 :00 No [id number] BLOOD PRESSURE 0.5 tablet DAILY 0.5 tablet DAILY (route: oral) Med Classific ation: Cardiovas cular Therapy Agents pantoprazol e 40 mg tablet,joão yed release 02-07 00:00: 00 02-21 23:59 :00 No [id number] STOMACH ACID 1 tablet DAILY 1 tablet DAILY (route: oral) Med Classific ation: Gastroint estinal Therapy Agents prednisone 5 mg tablet 02-07 00:00: 00 Yes [id number] ADRENAL INSUFFICIEN CY 1 tablet DAILY 1 tablet DAILY (route: oral) Med Classific ation: Endocrine spironolact one 25 mg tablet 02-07 00:00: 00 Yes [id number] FLUID RETENTION 0.5 tablet DAILY 0.5 tablet DAILY (route: oral) Med Classific ation: Cardiovas cular Therapy Agents tamsulosin 0.4 mg capsule 02-07 00:00: 00 02-21 23:59 :00 No [id number] URINARY HEALTH 1 capsule DAILY 1 capsule DAILY (route: oral) Med Classific ation: Genitouri nary Therapy acetaminoph en 325 mg tablet 2024-05 00:00: 00 Yes [id number] PAIN 2 tablet 2 TIMES DAILY 2 tablet 2 TIMES DAILY (route: oral) Med Classific ation: Analgesic , Anti-infl ammatory or Antipyret ic aspirin 81 mg tablet 2024-05 00:00: 00 Yes [id number] ANTICOAGULA NT 1 tablet DAILY 1 tablet DAILY (route: oral) Med Classific ation: Hematolog ical Agents ipratropium 0.5 mg-albutero l 3 mg (2.5 mg base)/3 mL nebulizatio n soln 2024-05 00:00: 00 Yes [id number] COPD 3 mL EVERY 6 HOURS 3 mL EVERY 6 HOURS (route: inhalation ) Med Classific ation: Respirato ry Therapy Agents Lanoxin 62.5 mcg (0.0625 mg) tablet 2024-05 00:00: 00 Yes [id number] CHF 1 tablet DAILY 1 tablet DAILY (route: oral) Med Classific ation: Cardiovas cular Therapy Agents Lasix 20 mg tablet 2024-05 00:00: 00 Yes [id number] CHF 1 tablet DAILY 1 tablet DAILY (route: oral) Med Classific ation: Cardiovas cular Therapy Agents Toprol XL 25 mg tablet,exte nded release 2024-05 00:00: 00 Yes [id number] BP 25 mg DAILY 25 mg DAILY [...] SYSTEM MANAGEMENT; RN TO ASSESS AND TEACH, LICSW/RETAIL BANKING MANAGER TO OBSERVE AND TEACH RELATED TO ALTERED RESPIRATORY STATUS TO MINIMIZE COMPLICATIONS AND REDUCE HOSPITALIZATION. [code = SN 1WK9 PT 1WK1 OT EFFECTIVE 02/10/2025K1 RESPIRATORY SYSTEM MANAGEMENT; RN TO ASSESS AND TEACH, LICSW/RETAIL BANKING MANAGER TO OBSERVE AND TEACH RELATED TO ALTERED RESPIRATORY STATUS TO MINIMIZE COMPLICATIONS AND REDUCE HOSPITALIZATION.] Future Scheduled Test TRACHEOSTO MY CARE MANAGEMENT; RN/LICSW/RETAIL BANKING MANAGER TO INSTRUCT PATIENT/CAREGIVER ON CARE AND MANAGEMENT OF TRACHEOSTOMY. RN/ LICSW/RETAIL BANKING MANAGER TO PROVIDE SKILLED TEACHING ON TRACH COLLAR SUCTIONING PRN WITH 14 FR SUCTION CATHETER PER PATIENT TRACH CARE WITH INNER CANNULA: REMOVE INNER CANNULA, CLEANSE WITH NORMAL SALINE AND OR STERILE WATER AND REINSERT NON-DISPOSABLE CANNULA SIZE OF INNER CANNULA 5 BROOKS [code = TRACHEOSTOMY CARE MANAGEMENT; RN/LICSW/RETAIL BANKING MANAGER TO INSTRUCT PATIENT/CAREGIVER ON CARE AND MANAGEMENT OF TRACHEOSTOMY. RN/ LICSW/RETAIL BANKING MANAGER TO PROVIDE SKILLED TEACHING ON TRACH COLLAR SUCTIONING PRN WITH 14 FR SUCTION CATHETER PER PATIENT TRACH CARE WITH INNER CANNULA: REMOVE INNER CANNULA, CLEANSE WITH NORMAL SALINE AND OR STERILE WATER AND REINSERT NON-DISPOSABLE CANNULA SIZE OF INNER CANNULA 5 BROOKS] Future Scheduled Test FALL REDUC TION MANAGEMENT; RN TO ASSESS AND OBSERVE, LICSW/RETAIL BANKING MANAGER TO OBSERVE FALL RISK FACTORS AND EDUCATE PATIENT/CAREGIVER ON STRATEGIES TO MINIMIZE THE RISK OF FALLING. [code = FALL REDUCTION MANAGEMENT; RN TO ASSESS AND OBSERVE, LICSW/RETAIL BANKING MANAGER TO OBSERVE FALL RISK FACTORS AND EDUCATE PATIENT/CAREGIVER ON STRATEGIES TO MINIMIZE THE RISK OF FALLING.] Future Scheduled Test ANEMIA MAN AGEMENT; RN TO ASSESS AND TEACH, RETAIL BANKING MANAGER/LICSW TO OBSERVE AND TEACH AND PROVIDE EDUCATION ON ANEMIA. [code = ANEMIA MANAGEMENT; RN TO ASSESS AND TEACH, RETAIL BANKING MANAGER/LICSW TO OBSERVE AND TEACH AND PROVIDE EDUCATION ON ANEMIA.] Future Scheduled Test RN TO OBSE RVE, ASSESS, EVALUATE, AND DEVELOP AN INDIVIDUALIZED PLAN OF CARE. AGENCY MAY ACCEPT ORDERS FROM CONSULTING PHYSICIANS RN TO OBSERVE AND ASSESS, LICSW/RETAIL BANKING MANAGER TO OBSERVE FOR RISK FOR FALLS AND INSTRUCT IN FALL PREVENTION, HOME SAFETY, MEDICATION MANAGEMENT, INFECTION PREVENTION, AND NUTRITION MANAGEMENT. RN/LICSW/RETAIL BANKING MANAGER NURSE MAY PERFORM O2 SATURATION LEVEL ON ADMISSION AND PRN FOR RN TO ASSESS/LICSW TO OBSERVE PATIENT, WITH NOTIFICATION TO THE PHYSICIAN IF SATURATION IS 90% IN THE ABSENCE OF MORE SPECIFIC PARAMETERS FROM THE PHYSICIAN. AGENCY MAY PERFORM A RESUMPTION OF CARE VISIT FOLLOWING ANY HOSPITAL ADMISSION. RN/LICSW/RETAIL BANKING MANAGER TO MONITOR CO-MORBID CONDITIONS LISTED ON THE PLAN OF CARE AND ANY NEW CONDITIONS THAT PRESENT THEMSELVES DURING THIS EPISODE TO IDENTIFY CHANGES AND INTERVENE TO MINIMIZE COMPLICATIONS. [code = RN TO OBSERVE, ASSESS, EVALUATE, AND DEVELOP AN INDIVIDUALIZED PLAN OF CARE. AGENCY MAY ACCEPT ORDERS FROM CONSULTING PHYSICIANS RN TO OBSERVE AND ASSESS, LICSW/RETAIL BANKING MANAGER TO OBSERVE FOR RISK FOR FALLS AND INSTRUCT IN FALL PREVENTION, HOME SAFETY, MEDICATION MANAGEMENT, INFECTION PREVENTION, AND NUTRITION MANAGEMENT. RN/LICSW/RETAIL BANKING MANAGER NURSE MAY PERFORM O2 SATURATION LEVEL ON ADMISSION AND PRN FOR RN TO ASSESS/LICSW TO OBSERVE PATIENT, WITH NOTIFICATION TO THE PHYSICIAN IF SATURATION IS 90% IN THE ABSENCE OF MORE SPECIFIC PARAMETERS FROM THE PHYSICIAN. AGENCY MAY PERFORM A RESUMPTION OF CARE VISIT FOLLOWING ANY HOSPITAL ADMISSION. RN/LICSW/RETAIL BANKING MANAGER TO MONITOR CO-MORBID CONDITIONS LISTED ON THE PLAN OF CARE AND ANY NEW CONDITIONS THAT PRESENT THEMSELVES DURING THIS EPISODE TO IDENTIFY CHANGES AND INTERVENE TO MINIMIZE COMPLICATIONS.] Future Scheduled Test PAIN MANAG EMENT; RN TO ASSESS AND TEACH, RETAIL BANKING MANAGER/LICSW TO OBSERVE AND TEACH AND PROVIDE EDUCATION ON PAIN MANAGEMENT TECHNIQUES. [code = PAIN MANAGEMENT; RN TO ASSESS AND TEACH, RETAIL BANKING MANAGER/LICSW TO OBSERVE AND TEACH AND PROVIDE EDUCATION ON PAIN MANAGEMENT TECHNIQUES.] Future Scheduled Test RISK FOR H OSPITALIZATION; RN TO ASSESS/TEACH, RETAIL BANKING MANAGER/LICSW TO OBSERVE/TEACH PATIENT/CAREGIVER ON RISK FOR HOSPITALIZATION/EMERGENCY ROOM VISITS, TEACH SIGNS AND SYMPTOMS THAT PUT PATIENT AT RISK, WHEN TO NOTIFY NURSE/PHYSICIAN OF COMPLICATIONS/DECLINE, AND WHEN TO CALL 911. [code = RISK FOR HOSPITALIZATION; RN TO ASSESS/TEACH, RETAIL BANKING MANAGER/LICSW TO OBSERVE/TEACH PATIENT/CAREGIVER ON RISK FOR HOSPITALIZATION/EMERGENCY ROOM VISITS, TEACH SIGNS AND SYMPTOMS THAT PUT PATIENT AT RISK, WHEN TO NOTIFY NURSE/PHYSICIAN OF COMPLICATIONS/DECLINE, AND WHEN TO CALL 911.] Future Scheduled Test CARDIOVASC ULAR SYSTEM; RN TO ASSESS/TEACH, LICSW/RETAIL BANKING MANAGER TO OBSERVE/TEACH RELATED TO ALTERED CARDIOVASCULAR STATUS TO MINIMIZE COMPLICATIONS AND REDUCE HOSPITALIZATION. [code = CARDIOVASCULAR SYSTEM; RN TO ASSESS/TEACH, LICSW/RETAIL BANKING MANAGER TO OBSERVE/TEACH RELATED TO ALTERED CARDIOVASCULAR STATUS TO MINIMIZE COMPLICATIONS AND REDUCE HOSPITALIZATION.] Future Scheduled Test HYPERTENSI ON MANAGEMENT; RN TO ASSESS AND TEACH, LICSW/RETAIL BANKING MANAGER TO OBSERVE AND TEACH WARNING SIGNS AND SYMPTOMS TO AVOID HOSPITALIZATION. [code = HYPERTENSION MANAGEMENT; RN TO ASSESS AND TEACH, LICSW/RETAIL BANKING MANAGER TO OBSERVE AND TEACH WARNING SIGNS AND SYMPTOMS TO AVOID HOSPITALIZATION.] Future Scheduled Test HEART FAIL URE MONITORING RN/RETAIL BANKING MANAGER/LICSW TO MONITOR PATIENT FOR SIGNS AND SYMPTOMS OF HEART FAILURE EXACERBATION, MONITOR FOR ADHERENCE WITH MEDICATION AND HEART FAILURE MANAGEMENT REGIMEN. [code = HEART FAILURE MONITORING RN/RETAIL BANKING MANAGER/LICSW TO MONITOR PATIENT FOR SIGNS AND SYMPTOMS OF HEART FAILURE EXACERBATION, MONITOR FOR ADHERENCE WITH MEDICATION AND HEART FAILURE MANAGEMENT REGIMEN.] Future Scheduled Test DIABETES M ONITORING RN/RETAIL BANKING MANAGER/LICSW TO MONITOR BLOOD SUGAR LOG FOR BLOOD SUGAR READINGS THAT ARE BEING CHECKED BY PATIENT, CAREGIVER NEEDED FOR SIGNS AND SYMPTOMS OF HYPER/HYPOGLYCEMIA. PATIENT THERAPEUTIC BLOOD SUGAR PARAMETERS ARE 70 - 300. REPORT BLOOD SUGARS OUT OF RANGE TO PHYSICIAN. NURSE MAY PERFORM FINGER STICK BLOOD GLUCOSE NEEDED FOR SIGNS AND SYMPTOMS OF HYPO AND HYPERGLYCEMIA. RN/RETAIL BANKING MANAGER/LICSW TO MONITOR ADHERENCE OF PATIENT/CAREGIVER PERFORMING DIABETIC FOOT CARE AND MAY PERFORM DIABETIC FOOT CARE PRN. RN/RETAIL BANKING MANAGER/LICSW TO MONITOR FOR ADHERENCE TO DIABETIC SELF-CARE AND MANAGEMENT INCLUDING MEDICATIONS. [code = DIABETES MONITORING RN/RETAIL BANKING MANAGER/LICSW TO MONITOR BLOOD SUGAR LOG FOR BLOOD SUGAR READINGS THAT ARE BEING CHECKED BY PATIENT, CAREGIVER NEEDED FOR SIGNS AND SYMPTOMS OF HYPER/HYPOGLYCEMIA. PATIENT THERAPEUTIC BLOOD SUGAR PARAMETERS ARE 70 - 300. REPORT BLOOD SUGARS OUT OF RANGE TO PHYSICIAN. NURSE MAY PERFORM FINGER STICK BLOOD GLUCOSE NEEDED FOR SIGNS AND SYMPTOMS OF HYPO AND HYPERGLYCEMIA. RN/RETAIL BANKING MANAGER/LICSW TO MONITOR ADHERENCE OF PATIENT/CAREGIVER PERFORMING DIABETIC FOOT CARE AND MAY PERFORM DIABETIC FOOT CARE PRN. RN/RETAIL BANKING MANAGER/LICSW TO MONITOR FOR ADHERENCE TO DIABETIC SELF-CARE AND MANAGEMENT INCLUDING MEDICATIONS.] Future Scheduled Test HYPOTENSIO N MANAGEMENT; RN TO ASSESS AND TEACH/ LICSW /RETAIL BANKING MANAGER TO OBSERVE AND TEACH WARNING SIGNS AND SYMPTOMS TO AVOID HOSPITALIZATION. [code = HYPOTENSION MANAGEMENT; RN TO ASSESS AND TEACH/ LICSW /RETAIL BANKING MANAGER TO OBSERVE AND TEACH WARNING SIGNS AND SYMPTOMS TO AVOID HOSPITALIZATION.] Future Scheduled Test ARRHYTHMIA MANAGEMENT; RN TO ASSESS AND TEACH, LICSW/RETAIL BANKING MANAGER TO OBSERVE AND TEACH WARNING SIGNS AND SYMPTOMS TO AVOID HOSPITALIZATION. [code = ARRHYTHMIA MANAGEMENT; RN TO ASSESS AND TEACH, LICSW/RETAIL BANKING MANAGER TO OBSERVE AND TEACH WARNING SIGNS AND SYMPTOMS TO AVOID HOSPITALIZATION.] Future Scheduled Test MEDICATION MANAGEMENT; RN/LICSW/RETAIL BANKING MANAGER TO REVIEW MEDICATIONS FOR INTERACTIONS, EFFECTIVENESS OF DRUG THERAPY, AND SIGNS/SYMPTOMS OF ADVERSE REACTIONS. MAY INSTRUCT AND REINFORCE MEDICATION TEACHING RELATED TO THE USE OF MEDICATIONS, DOSAGE, FREQUENCY, PURPOSE, SIDE EFFECTS, AND TO REPORT COMPLICATIONS. [code = MEDICATION MANAGEMENT; RN/LICSW/RETAIL BANKING MANAGER TO REVIEW MEDICATIONS FOR INTERACTIONS, EFFECTIVENESS [...] EVAL UATE, OBSERVE / ASSESS, AND MONITOR, B2B SALES EXECUTIVE TO OBSERVE AND MONITOR, PROVIDE SKILLED THERAPEUTIC INTERVENTION, ACTIVITY, EDUCATION, AND TRAINING TO ADDRESS GEN. WEAKNESS, POOR OVERALL ACTIVITY TOLERANCE, AND FUNCTIONAL LIMITATIONS IMPACTING SAFETY AND INDEPENDENCE. BED MOBILITY (PT/B2B SALES EXECUTIVE) PT/B2B SALES EXECUTIVE TO PROVIDE GAIT TRAINING FOR IMPROVED MOBILITY AND /OR TO NORMALIZE GAIT PATTERN THERAPEUTIC EXERCISES AND ESTABLISHING A HOME EXERCISE PROGRAM (PT/B2B SALES EXECUTIVE) PT/B2B SALES EXECUTIVE TO PROVIDE STAIR TRAINING PT / B2B SALES EXECUTIVE TO MONITOR AND EDUCATE ON OXYGEN SATURATION DURING ADLS/IADLS, NOTIFY PHYSICIAN AND/OR THE RN CLINICAL JOB ANALYST FOR PHYSICIAN NOTIFICATION AND IF O2 SATS BELOW PHYSICIAN ORDERED PARAMETERS AFTER 10 MIN OF REST PT / B2B SALES EXECUTIVE TO OBSERVE FOR EARLY SIGNS AND SYMPTOMS OF DEPRESSION OR DEPRESSION GETTING WORSE AND TO EDUCATE ON HOW TO FIND HELP. PT / B2B SALES EXECUTIVE MAY EDUCATE ON PAIN MANAGEMENT CLINICALLY INDICATED, INCLUDING NON-PHARMACOLOGICAL PAIN REDUCTION TECHNIQUES PT / B2B SALES EXECUTIVE TO MONITOR FOR HYPO/HYPERGLYCEMIA AND CONDUCT ROUTINE FOOT INSPECTIONS. RECORD PATIENT REPORTED BLOOD SUGAR LEVELS AND NOTIFY PHYSICIAN AND/OR THE RN CLINICAL JOB ANALYST FOR PHYSICIAN NOTIFICATION IF BLOOD SUGAR LEVELS ARE OUTSIDE ORDERED PARAMETERS. TEACH PATIENT/CAREGIVER ON DAILY FOOT INSPECTIONS PT / B2B SALES EXECUTIVE TO INSTRUCT PATIENT/CAREGIVER ON RISK FOR HOSPITALIZATION/EMERGENCY ROOM VISITS, TEACH SIGNS AND SYMPTOMS THAT PUT PATIENT AT RISK, WHEN TO NOTIFY NURSE/PHYSICIAN OF COMPLICATIONS/DECLINE, AND WHEN TO CALL 911. PT/B2B SALES EXECUTIVE TO EDUCATE ON ARTHRITIS SELF-MANAGEMENT PT / B2B SALES EXECUTIVE TO EDUCATE ON HEART FAILURE SELF-MANAGEMENT PT / B2B SALES EXECUTIVE TO EDUCATE ON HYPERTENSION SELF-MANAGEMENT PT TO ASSESS / B2B SALES EXECUTIVE TO MONITOR CARDIO/RESPIRATORY SYSTEM; AND NOTIFY THE PHYSICIAN AND/OR THE RN CLINICAL JOB ANALYST FOR PHYSICIAN NOTIFICATION FOR EARLY SIGNS AND SYMPTOMS OF EXACERBATION OR DETERIORATION. PT / B2B SALES EXECUTIVE TO EDUCATE ON ATRIAL FIBRILLATION SELF-MANAGEMENT. PT / B2B SALES EXECUTIVE TO EDUCATE ON PNEUMONIA / ASPIRATION PNEUMONIA SELF-MANAGEMENT. PT/B2B SALES EXECUTIVE TO IDENTIFY FALL RISK FACTORS; EDUCATE THE PATIENT/CAREGIVER ON WAYS TO REDUCE FALL RISK FACTORS AND ESTABLISH HOME EXERCISE PROGRAM TO MINIMIZE FALL RISK. MAY TEACH THE PATIENT FLOOR RECOVERY WHEN CLINICALLY APPROPRIATE [code = PT TO EVALUATE, OBSERVE / ASSESS, AND MONITOR, B2B SALES EXECUTIVE TO OBSERVE AND MONITOR, PROVIDE SKILLED THERAPEUTIC INTERVENTION, ACTIVITY, EDUCATION, AND TRAINING TO ADDRESS GEN. WEAKNESS, POOR OVERALL ACTIVITY TOLERANCE, AND FUNCTIONAL LIMITATIONS IMPACTING SAFETY AND INDEPENDENCE. BED MOBILITY (PT/B2B SALES EXECUTIVE) PT/B2B SALES EXECUTIVE TO PROVIDE GAIT TRAINING FOR IMPROVED MOBILITY AND /OR TO NORMALIZE GAIT PATTERN THERAPEUTIC EXERCISES AND ESTABLISHING A HOME EXERCISE PROGRAM (PT/B2B SALES EXECUTIVE) PT/B2B SALES EXECUTIVE TO PROVIDE STAIR TRAINING PT / B2B SALES EXECUTIVE TO MONITOR AND EDUCATE ON OXYGEN SATURATION DURING ADLS/IADLS, NOTIFY PHYSICIAN AND/OR THE RN CLINICAL JOB ANALYST FOR PHYSICIAN NOTIFICATION AND IF O2 SATS BELOW PHYSICIAN ORDERED PARAMETERS AFTER 10 MIN OF REST PT / B2B SALES EXECUTIVE TO OBSERVE FOR EARLY SIGNS AND SYMPTOMS OF DEPRESSION OR DEPRESSION GETTING WORSE AND TO EDUCATE ON HOW TO FIND HELP. PT / B2B SALES EXECUTIVE MAY EDUCATE ON PAIN MANAGEMENT CLINICALLY INDICATED, INCLUDING NON-PHARMACOLOGICAL PAIN REDUCTION TECHNIQUES PT / B2B SALES EXECUTIVE TO MONITOR FOR HYPO/HYPERGLYCEMIA AND CONDUCT ROUTINE FOOT INSPECTIONS. RECORD PATIENT REPORTED BLOOD SUGAR LEVELS AND NOTIFY PHYSICIAN AND/OR THE RN CLINICAL JOB ANALYST FOR PHYSICIAN NOTIFICATION IF BLOOD SUGAR LEVELS ARE OUTSIDE ORDERED PARAMETERS. TEACH PATIENT/CAREGIVER ON DAILY FOOT INSPECTIONS PT / B2B SALES EXECUTIVE TO INSTRUCT PATIENT/CAREGIVER ON RISK FOR HOSPITALIZATION/EMERGENCY ROOM VISITS, TEACH SIGNS AND SYMPTOMS THAT PUT PATIENT AT RISK, WHEN TO NOTIFY NURSE/PHYSICIAN OF COMPLICATIONS/DECLINE, AND WHEN TO CALL 911. PT/B2B SALES EXECUTIVE TO EDUCATE ON ARTHRITIS SELF-MANAGEMENT PT / B2B SALES EXECUTIVE TO EDUCATE ON HEART FAILURE SELF-MANAGEMENT PT / B2B SALES EXECUTIVE TO EDUCATE ON HYPERTENSION SELF-MANAGEMENT PT TO ASSESS / B2B SALES EXECUTIVE TO MONITOR CARDIO/RESPIRATORY SYSTEM; AND NOTIFY THE PHYSICIAN AND/OR THE RN CLINICAL JOB ANALYST FOR PHYSICIAN NOTIFICATION FOR EARLY SIGNS AND SYMPTOMS OF EXACERBATION OR DETERIORATION. PT / B2B SALES EXECUTIVE TO EDUCATE ON ATRIAL FIBRILLATION SELF-MANAGEMENT. PT / B2B SALES EXECUTIVE TO EDUCATE ON PNEUMONIA / ASPIRATION PNEUMONIA SELF-MANAGEMENT. PT/B2B SALES EXECUTIVE TO IDENTIFY FALL RISK FACTORS; EDUCATE THE PATIENT/CAREGIVER ON WAYS TO REDUCE FALL RISK FACTORS AND ESTABLISH HOME EXERCISE PROGRAM TO MINIMIZE FALL RISK. MAY TEACH THE PATIENT FLOOR RECOVERY WHEN CLINICALLY APPROPRIATE] Future Scheduled Test AGENCY MAY PERFORM A RESUMPTION OF CARE VISIT FOLLOWING ANY HOSPITAL ADMISSION. OT TO EVALUATE, OBSERVE / ASSESS, AND MONITOR, HOT BILLET SHEAR OPERATOR TO OBSERVE AND MONITOR, PROVIDE SKILLED THERAPEUTIC INTERVENTION, ACTIVITY, EDUCATION, AND TRAINING TO ADDRESS SAFETY AND INDEPENDENCE OF ADLS AND FUNCTIONAL TRANSFERS IN HOME ENVIRONMENT. ACTIVITIES OF DAILY LIVING (OT/MARIANNE) THERAPEUTIC EXERCISE (OT/HOT BILLET SHEAR OPERATOR) ENERGY CONSERVATION/ACTIVITY DEMAND (OT/HOT BILLET SHEAR OPERATOR) OT/HOT BILLET SHEAR OPERATOR TO MONITOR AND EDUCATE ON OXYGEN SATURATION DURING ADLS/IADLS, NOTIFY PHYSICIAN AND/OR THE RN CLINICAL JOB ANALYST FOR PHYSICIAN NOTIFICATION AND IF O2 SATS BELOW 90% AFTER 10 MIN OF REST. OT / HOT BILLET SHEAR OPERATOR TO IDENTIFY FALL RISK FACTORS; EDUCATE THE PATIENT/CAREGIVER ON WAYS TO REDUCE FALL RISK FACTORS AND ESTABLISH HOME EXERCISE PROGRAM TO MINIMIZE FALL RISK. MAY TEACH THE PATIENT FLOOR RECOVERY WHEN CLINICALLY APPROPRIATE. OT/HOT BILLET SHEAR OPERATOR TO EDUCATE ON HYPERTENSION SELF-MANAGEMENT OT/MARIANNE TO EDUCATE ON ATRIAL FIBRILLATION SELF-MANAGEMENT. [code = AGENCY MAY PERFORM A RESUMPTION OF CARE VISIT FOLLOWING ANY HOSPITAL ADMISSION. OT TO EVALUATE, OBSERVE / ASSESS, AND MONITOR, HOT BILLET SHEAR OPERATOR TO OBSERVE AND MONITOR, PROVIDE SKILLED THERAPEUTIC INTERVENTION, ACTIVITY, EDUCATION, AND TRAINING TO ADDRESS SAFETY AND INDEPENDENCE OF ADLS AND FUNCTIONAL TRANSFERS IN HOME ENVIRONMENT. ACTIVITIES OF DAILY LIVING (OT/MARIANNE) THERAPEUTIC EXERCISE (OT/HOT BILLET SHEAR OPERATOR) ENERGY CONSERVATION/ACTIVITY DEMAND (OT/MARIANNE) OT/HOT BILLET SHEAR OPERATOR TO MONITOR AND EDUCATE ON OXYGEN SATURATION DURING ADLS/IADLS, NOTIFY PHYSICIAN AND/OR THE RN CLINICAL JOB ANALYST FOR PHYSICIAN NOTIFICATION AND IF O2 SATS BELOW 90% AFTER 10 MIN OF REST. OT / MARIANNE TO IDENTIFY FALL RISK FACTORS; EDUCATE THE PATIENT/CAREGIVER ON WAYS TO REDUCE FALL RISK FACTORS AND ESTABLISH HOME EXERCISE PROGRAM TO MINIMIZE FALL RISK. MAY TEACH THE PATIENT FLOOR RECOVERY WHEN CLINICALLY APPROPRIATE. OT/HOT BILLET SHEAR OPERATOR TO EDUCATE ON HYPERTENSION SELF-MANAGEMENT OT/MARIANNE [...] OF SKIN INTEGRITY ISSUES FROM SBA TO RI WITHIN 2 WKS. PT STG: PATIENT WILL [...] TO SAFELY NEGOTIATE STAIRS FROM SBA TO RI WITH 2 STEPS W/O HANDRAIL VIA FRONT [...] LOCATED WITHIN [facility] [id number]
--- OUTSIDE RECORDS SUMMARY | 2025-04-06 18:00 | XMS_ITS | Clinical Summary ---
Author Organization Unknown Care Team Providers Care Human Resources Generalist Name Role Phone DIGNA ARIEL, ESTRELLA Unavailable Unava dinora STOKES RN, FRANKIE Unavailable Unavailabl e KARI PT, DIDI Unavailable Unavailable NAT [employer] SALES ENGINEER, GAUDENCIO Unavailable Unavailabl e RADHA OT, ROLANDO Unavailable Unavailable JOANNE STEVEN, HATTIE Unavailable Unavailable Payers Payer Name Policy Type Policy Number Effective Date Expira tion Date MEDICARE.[facility] [id number] Problems Condition Name Condition Details Condition Category Status Onset Date Resolution Date Last Treatment Date Treating Clinician Comments 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 [...] OF PNEUMONIA (RECURRENT) Active 02-07 00:00: 00 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) USE OF SYSTEMIC STEROIDS Active [...] 80 mg tablet 02-07 00:00: 00 Yes [id number] CHOLESTEROL 1 tablet DAILY 1 tablet DAILY (route: oral) Med Classific ation: Cardiovas cular Therapy Agents digoxin 125 mcg (0.125 mg) tablet 02-07 00:00: 00 02-21 23:59 :00 No [id number] HEART RHYTHM 1 tablet DAILY 1 tablet DAILY (route: oral) Med Classific ation: Cardiovas cular Therapy Agents escitalopra m 10 mg tablet 02-07 00:00: 00 Yes [id number] MOOD 1 tablet DAILY 1 tablet DAILY (route: oral) Med Classific ation: Central Nervous System Agents ezetimibe 10 mg tablet 02-07 00:00: 00 Yes [id number] CHOLESTEROL 1 tablet DAILY 1 tablet DAILY (route: oral) Med Classific ation: Cardiovas cular Therapy Agents metoprolol succinate ER 25 mg tablet,exte nded release 24 hr 02-07 00:00: 00 02-21 23:59 :00 No [id number] BLOOD PRESSURE 0.5 tablet DAILY 0.5 tablet DAILY (route: oral) Med Classific ation: Cardiovas cular Therapy Agents pantoprazol e 40 mg tablet,joão yed release 02-07 00:00: 00 02-21 23:59 :00 No [id number] STOMACH ACID 1 tablet DAILY 1 tablet DAILY (route: oral) Med Classific ation: Gastroint estinal Therapy Agents prednisone 5 mg tablet 02-07 00:00: 00 Yes [id number] ADRENAL INSUFFICIEN CY 1 tablet DAILY 1 tablet DAILY (route: oral) Med Classific ation: Endocrine spironolact one 25 mg tablet 02-07 00:00: 00 Yes [id number] FLUID RETENTION 0.5 tablet DAILY 0.5 tablet DAILY (route: oral) Med Classific ation: Cardiovas cular Therapy Agents tamsulosin 0.4 mg capsule 02-07 00:00: 00 02-21 23:59 :00 No [id number] URINARY HEALTH 1 capsule DAILY 1 capsule DAILY (route: oral) Med Classific ation: Genitouri nary Therapy acetaminoph en 325 mg tablet 2024-05 00:00: 00 Yes [id number] PAIN 2 tablet 2 TIMES DAILY 2 tablet 2 TIMES DAILY (route: oral) Med Classific ation: Analgesic , Anti-infl ammatory or Antipyret ic aspirin 81 mg tablet 2024-05 00:00: 00 Yes [id number] ANTICOAGULA NT 1 tablet DAILY 1 tablet DAILY (route: oral) Med Classific ation: Hematolog ical Agents ipratropium 0.5 mg-albutero l 3 mg (2.5 mg base)/3 mL nebulizatio n soln 2024-05 00:00: 00 Yes [id number] COPD 3 mL EVERY 6 HOURS 3 mL EVERY 6 HOURS (route: inhalation ) Med Classific ation: Respirato ry Therapy Agents Lanoxin 62.5 mcg (0.0625 mg) tablet 2024-05 00:00: 00 Yes [id number] CHF 1 tablet DAILY 1 tablet DAILY (route: oral) Med Classific ation: Cardiovas cular Therapy Agents Lasix 20 mg tablet 2024-05 00:00: 00 Yes [id number] CHF 1 tablet DAILY 1 tablet DAILY (route: oral) Med Classific ation: Cardiovas cular Therapy Agents Toprol XL 25 mg tablet,exte nded release 2024-05 00:00: 00 Yes [id number] BP 25 mg DAILY 25 mg DAILY [...] SYSTEM MANAGEMENT; RN TO ASSESS AND TEACH, DEMOLITIONIST/AUDITOR APPRAISER TO OBSERVE AND TEACH RELATED TO ALTERED RESPIRATORY STATUS TO MINIMIZE COMPLICATIONS AND REDUCE HOSPITALIZATION. [code = SN 1WK9 PT 1WK1 OT EFFECTIVE 02/10/2025K1 RESPIRATORY SYSTEM MANAGEMENT; RN TO ASSESS AND TEACH, DEMOLITIONIST/AUDITOR APPRAISER TO OBSERVE AND TEACH RELATED TO ALTERED RESPIRATORY STATUS TO MINIMIZE COMPLICATIONS AND REDUCE HOSPITALIZATION.] Future Scheduled Test TRACHEOSTO MY CARE MANAGEMENT; RN/DEMOLITIONIST/AUDITOR APPRAISER TO INSTRUCT PATIENT/CAREGIVER ON CARE AND MANAGEMENT OF TRACHEOSTOMY. RN/ DEMOLITIONIST/AUDITOR APPRAISER TO PROVIDE SKILLED TEACHING ON TRACH COLLAR SUCTIONING PRN WITH 14 FR SUCTION CATHETER PER PATIENT TRACH CARE WITH INNER CANNULA: REMOVE INNER CANNULA, CLEANSE WITH NORMAL SALINE AND OR STERILE WATER AND REINSERT NON-DISPOSABLE CANNULA SIZE OF INNER CANNULA 5 BROOKS [code = TRACHEOSTOMY CARE MANAGEMENT; RN/DEMOLITIONIST/AUDITOR APPRAISER TO INSTRUCT PATIENT/CAREGIVER ON CARE AND MANAGEMENT OF TRACHEOSTOMY. RN/ DEMOLITIONIST/AUDITOR APPRAISER TO PROVIDE SKILLED TEACHING ON TRACH COLLAR SUCTIONING PRN WITH 14 FR SUCTION CATHETER PER PATIENT TRACH CARE WITH INNER CANNULA: REMOVE INNER CANNULA, CLEANSE WITH NORMAL SALINE AND OR STERILE WATER AND REINSERT NON-DISPOSABLE CANNULA SIZE OF INNER CANNULA 5 BROOKS] Future Scheduled Test FALL REDUC TION MANAGEMENT; RN TO ASSESS AND OBSERVE, DEMOLITIONIST/AUDITOR APPRAISER TO OBSERVE FALL RISK FACTORS AND EDUCATE PATIENT/CAREGIVER ON STRATEGIES TO MINIMIZE THE RISK OF FALLING. [code = FALL REDUCTION MANAGEMENT; RN TO ASSESS AND OBSERVE, DEMOLITIONIST/AUDITOR APPRAISER TO OBSERVE FALL RISK FACTORS AND EDUCATE PATIENT/CAREGIVER ON STRATEGIES TO MINIMIZE THE RISK OF FALLING.] Future Scheduled Test ANEMIA MAN AGEMENT; RN TO ASSESS AND TEACH, AUDITOR APPRAISER/DEMOLITIONIST TO OBSERVE AND TEACH AND PROVIDE EDUCATION ON ANEMIA. [code = ANEMIA MANAGEMENT; RN TO ASSESS AND TEACH, AUDITOR APPRAISER/DEMOLITIONIST TO OBSERVE AND TEACH AND PROVIDE EDUCATION ON ANEMIA.] Future Scheduled Test RN TO OBSE RVE, ASSESS, EVALUATE, AND DEVELOP AN INDIVIDUALIZED PLAN OF CARE. AGENCY MAY ACCEPT ORDERS FROM CONSULTING PHYSICIANS RN TO OBSERVE AND ASSESS, DEMOLITIONIST/AUDITOR APPRAISER TO OBSERVE FOR RISK FOR FALLS AND INSTRUCT IN FALL PREVENTION, HOME SAFETY, MEDICATION MANAGEMENT, INFECTION PREVENTION, AND NUTRITION MANAGEMENT. RN/DEMOLITIONIST/AUDITOR APPRAISER NURSE MAY PERFORM O2 SATURATION LEVEL ON ADMISSION AND PRN FOR RN TO ASSESS/DEMOLITIONIST TO OBSERVE PATIENT, WITH NOTIFICATION TO THE PHYSICIAN IF SATURATION IS 90% IN THE ABSENCE OF MORE SPECIFIC PARAMETERS FROM THE PHYSICIAN. AGENCY MAY PERFORM A RESUMPTION OF CARE VISIT FOLLOWING ANY HOSPITAL ADMISSION. RN/DEMOLITIONIST/AUDITOR APPRAISER TO MONITOR CO-MORBID CONDITIONS LISTED ON THE PLAN OF CARE AND ANY NEW CONDITIONS THAT PRESENT THEMSELVES DURING THIS EPISODE TO IDENTIFY CHANGES AND INTERVENE TO MINIMIZE COMPLICATIONS. [code = RN TO OBSERVE, ASSESS, EVALUATE, AND DEVELOP AN INDIVIDUALIZED PLAN OF CARE. AGENCY MAY ACCEPT ORDERS FROM CONSULTING PHYSICIANS RN TO OBSERVE AND ASSESS, DEMOLITIONIST/AUDITOR APPRAISER TO OBSERVE FOR RISK FOR FALLS AND INSTRUCT IN FALL PREVENTION, HOME SAFETY, MEDICATION MANAGEMENT, INFECTION PREVENTION, AND NUTRITION MANAGEMENT. RN/DEMOLITIONIST/AUDITOR APPRAISER NURSE MAY PERFORM O2 SATURATION LEVEL ON ADMISSION AND PRN FOR RN TO ASSESS/DEMOLITIONIST TO OBSERVE PATIENT, WITH NOTIFICATION TO THE PHYSICIAN IF SATURATION IS 90% IN THE ABSENCE OF MORE SPECIFIC PARAMETERS FROM THE PHYSICIAN. AGENCY MAY PERFORM A RESUMPTION OF CARE VISIT FOLLOWING ANY HOSPITAL ADMISSION. RN/DEMOLITIONIST/AUDITOR APPRAISER TO MONITOR CO-MORBID CONDITIONS LISTED ON THE PLAN OF CARE AND ANY NEW CONDITIONS THAT PRESENT THEMSELVES DURING THIS EPISODE TO IDENTIFY CHANGES AND INTERVENE TO MINIMIZE COMPLICATIONS.] Future Scheduled Test PAIN MANAG EMENT; RN TO ASSESS AND TEACH, AUDITOR APPRAISER/DEMOLITIONIST TO OBSERVE AND TEACH AND PROVIDE EDUCATION ON PAIN MANAGEMENT TECHNIQUES. [code = PAIN MANAGEMENT; RN TO ASSESS AND TEACH, AUDITOR APPRAISER/DEMOLITIONIST TO OBSERVE AND TEACH AND PROVIDE EDUCATION ON PAIN MANAGEMENT TECHNIQUES.] Future Scheduled Test RISK FOR H OSPITALIZATION; RN TO ASSESS/TEACH, AUDITOR APPRAISER/DEMOLITIONIST TO OBSERVE/TEACH PATIENT/CAREGIVER ON RISK FOR HOSPITALIZATION/EMERGENCY ROOM VISITS, TEACH SIGNS AND SYMPTOMS THAT PUT PATIENT AT RISK, WHEN TO NOTIFY NURSE/PHYSICIAN OF COMPLICATIONS/DECLINE, AND WHEN TO CALL 911. [code = RISK FOR HOSPITALIZATION; RN TO ASSESS/TEACH, AUDITOR APPRAISER/DEMOLITIONIST TO OBSERVE/TEACH PATIENT/CAREGIVER ON RISK FOR HOSPITALIZATION/EMERGENCY ROOM VISITS, TEACH SIGNS AND SYMPTOMS THAT PUT PATIENT AT RISK, WHEN TO NOTIFY NURSE/PHYSICIAN OF COMPLICATIONS/DECLINE, AND WHEN TO CALL 911.] Future Scheduled Test CARDIOVASC ULAR SYSTEM; RN TO ASSESS/TEACH, DEMOLITIONIST/AUDITOR APPRAISER TO OBSERVE/TEACH RELATED TO ALTERED CARDIOVASCULAR STATUS TO MINIMIZE COMPLICATIONS AND REDUCE HOSPITALIZATION. [code = CARDIOVASCULAR SYSTEM; RN TO ASSESS/TEACH, DEMOLITIONIST/AUDITOR APPRAISER TO OBSERVE/TEACH RELATED TO ALTERED CARDIOVASCULAR STATUS TO MINIMIZE COMPLICATIONS AND REDUCE HOSPITALIZATION.] Future Scheduled Test HYPERTENSI ON MANAGEMENT; RN TO ASSESS AND TEACH, DEMOLITIONIST/AUDITOR APPRAISER TO OBSERVE AND TEACH WARNING SIGNS AND SYMPTOMS TO AVOID HOSPITALIZATION. [code = HYPERTENSION MANAGEMENT; RN TO ASSESS AND TEACH, DEMOLITIONIST/AUDITOR APPRAISER TO OBSERVE AND TEACH WARNING SIGNS AND SYMPTOMS TO AVOID HOSPITALIZATION.] Future Scheduled Test HEART FAIL URE MONITORING RN/AUDITOR APPRAISER/DEMOLITIONIST TO MONITOR PATIENT FOR SIGNS AND SYMPTOMS OF HEART FAILURE EXACERBATION, MONITOR FOR ADHERENCE WITH MEDICATION AND HEART FAILURE MANAGEMENT REGIMEN. [code = HEART FAILURE MONITORING RN/AUDITOR APPRAISER/DEMOLITIONIST TO MONITOR PATIENT FOR SIGNS AND SYMPTOMS OF HEART FAILURE EXACERBATION, MONITOR FOR ADHERENCE WITH MEDICATION AND HEART FAILURE MANAGEMENT REGIMEN.] Future Scheduled Test DIABETES M ONITORING RN/AUDITOR APPRAISER/DEMOLITIONIST TO MONITOR BLOOD SUGAR LOG FOR BLOOD SUGAR READINGS THAT ARE BEING CHECKED BY PATIENT, CAREGIVER NEEDED FOR SIGNS AND SYMPTOMS OF HYPER/HYPOGLYCEMIA. PATIENT THERAPEUTIC BLOOD SUGAR PARAMETERS ARE 70 - 300. REPORT BLOOD SUGARS OUT OF RANGE TO PHYSICIAN. NURSE MAY PERFORM FINGER STICK BLOOD GLUCOSE NEEDED FOR SIGNS AND SYMPTOMS OF HYPO AND HYPERGLYCEMIA. RN/AUDITOR APPRAISER/DEMOLITIONIST TO MONITOR ADHERENCE OF PATIENT/CAREGIVER PERFORMING DIABETIC FOOT CARE AND MAY PERFORM DIABETIC FOOT CARE PRN. RN/AUDITOR APPRAISER/DEMOLITIONIST TO MONITOR FOR ADHERENCE TO DIABETIC SELF-CARE AND MANAGEMENT INCLUDING MEDICATIONS. [code = DIABETES MONITORING RN/AUDITOR APPRAISER/DEMOLITIONIST TO MONITOR BLOOD SUGAR LOG FOR BLOOD SUGAR READINGS THAT ARE BEING CHECKED BY PATIENT, CAREGIVER NEEDED FOR SIGNS AND SYMPTOMS OF HYPER/HYPOGLYCEMIA. PATIENT THERAPEUTIC BLOOD SUGAR PARAMETERS ARE 70 - 300. REPORT BLOOD SUGARS OUT OF RANGE TO PHYSICIAN. NURSE MAY PERFORM FINGER STICK BLOOD GLUCOSE NEEDED FOR SIGNS AND SYMPTOMS OF HYPO AND HYPERGLYCEMIA. RN/AUDITOR APPRAISER/DEMOLITIONIST TO MONITOR ADHERENCE OF PATIENT/CAREGIVER PERFORMING DIABETIC FOOT CARE AND MAY PERFORM DIABETIC FOOT CARE PRN. RN/AUDITOR APPRAISER/DEMOLITIONIST TO MONITOR FOR ADHERENCE TO DIABETIC SELF-CARE AND MANAGEMENT INCLUDING MEDICATIONS.] Future Scheduled Test HYPOTENSIO N MANAGEMENT; RN TO ASSESS AND TEACH/ DEMOLITIONIST /AUDITOR APPRAISER TO OBSERVE AND TEACH WARNING SIGNS AND SYMPTOMS TO AVOID HOSPITALIZATION. [code = HYPOTENSION MANAGEMENT; RN TO ASSESS AND TEACH/ DEMOLITIONIST /AUDITOR APPRAISER TO OBSERVE AND TEACH WARNING SIGNS AND SYMPTOMS TO AVOID HOSPITALIZATION.] Future Scheduled Test ARRHYTHMIA MANAGEMENT; RN TO ASSESS AND TEACH, DEMOLITIONIST/AUDITOR APPRAISER TO OBSERVE AND TEACH WARNING SIGNS AND SYMPTOMS TO AVOID HOSPITALIZATION. [code = ARRHYTHMIA MANAGEMENT; RN TO ASSESS AND TEACH, DEMOLITIONIST/AUDITOR APPRAISER TO OBSERVE AND TEACH WARNING SIGNS AND SYMPTOMS TO AVOID HOSPITALIZATION.] Future Scheduled Test MEDICATION MANAGEMENT; RN/DEMOLITIONIST/AUDITOR APPRAISER TO REVIEW MEDICATIONS FOR INTERACTIONS, EFFECTIVENESS OF DRUG THERAPY, AND SIGNS/SYMPTOMS OF ADVERSE REACTIONS. MAY INSTRUCT AND REINFORCE MEDICATION TEACHING RELATED TO THE USE OF MEDICATIONS, DOSAGE, FREQUENCY, PURPOSE, SIDE EFFECTS, AND TO REPORT COMPLICATIONS. [code = MEDICATION MANAGEMENT; RN/DEMOLITIONIST/AUDITOR APPRAISER TO REVIEW MEDICATIONS FOR INTERACTIONS, EFFECTIVENESS OF [...] EVAL UATE, OBSERVE / ASSESS, AND MONITOR, [employer] SALES ENGINEER TO OBSERVE AND MONITOR, PROVIDE SKILLED THERAPEUTIC INTERVENTION, ACTIVITY, EDUCATION, AND TRAINING TO ADDRESS GEN. WEAKNESS, POOR OVERALL ACTIVITY TOLERANCE, AND FUNCTIONAL LIMITATIONS IMPACTING SAFETY AND INDEPENDENCE. BED MOBILITY (PT/[employer] SALES ENGINEER) PT/[employer] SALES ENGINEER TO PROVIDE GAIT TRAINING FOR IMPROVED MOBILITY AND /OR TO NORMALIZE GAIT PATTERN THERAPEUTIC EXERCISES AND ESTABLISHING A HOME EXERCISE PROGRAM (PT/[employer] SALES ENGINEER) PT/[employer] SALES ENGINEER TO PROVIDE STAIR TRAINING PT / [employer] SALES ENGINEER TO MONITOR AND EDUCATE ON OXYGEN SATURATION DURING ADLS/IADLS, NOTIFY PHYSICIAN AND/OR THE RN CLINICAL MINE SURVEYOR FOR PHYSICIAN NOTIFICATION AND IF O2 SATS BELOW PHYSICIAN ORDERED PARAMETERS AFTER 10 MIN OF REST PT / [employer] SALES ENGINEER TO OBSERVE FOR EARLY SIGNS AND SYMPTOMS OF DEPRESSION OR DEPRESSION GETTING WORSE AND TO EDUCATE ON HOW TO FIND HELP. PT / [employer] SALES ENGINEER MAY EDUCATE ON PAIN MANAGEMENT CLINICALLY INDICATED, INCLUDING NON-PHARMACOLOGICAL PAIN REDUCTION TECHNIQUES PT / [employer] SALES ENGINEER TO MONITOR FOR HYPO/HYPERGLYCEMIA AND CONDUCT ROUTINE FOOT INSPECTIONS. RECORD PATIENT REPORTED BLOOD SUGAR LEVELS AND NOTIFY PHYSICIAN AND/OR THE RN CLINICAL MINE SURVEYOR FOR PHYSICIAN NOTIFICATION IF BLOOD SUGAR LEVELS ARE OUTSIDE ORDERED PARAMETERS. TEACH PATIENT/CAREGIVER ON DAILY FOOT INSPECTIONS PT / [employer] SALES ENGINEER TO INSTRUCT PATIENT/CAREGIVER ON RISK FOR HOSPITALIZATION/EMERGENCY ROOM VISITS, TEACH SIGNS AND SYMPTOMS THAT PUT PATIENT AT RISK, WHEN TO NOTIFY NURSE/PHYSICIAN OF COMPLICATIONS/DECLINE, AND WHEN TO CALL 911. PT/[employer] SALES ENGINEER TO EDUCATE ON ARTHRITIS SELF-MANAGEMENT PT / [employer] SALES ENGINEER TO EDUCATE ON HEART FAILURE SELF-MANAGEMENT PT / [employer] SALES ENGINEER TO EDUCATE ON HYPERTENSION SELF-MANAGEMENT PT TO ASSESS / [employer] SALES ENGINEER TO MONITOR CARDIO/RESPIRATORY SYSTEM; AND NOTIFY THE PHYSICIAN AND/OR THE RN CLINICAL MINE SURVEYOR FOR PHYSICIAN NOTIFICATION FOR EARLY SIGNS AND SYMPTOMS OF EXACERBATION OR DETERIORATION. PT / [employer] SALES ENGINEER TO EDUCATE ON ATRIAL FIBRILLATION SELF-MANAGEMENT. PT / [employer] SALES ENGINEER TO EDUCATE ON PNEUMONIA / ASPIRATION PNEUMONIA SELF-MANAGEMENT. PT/[employer] SALES ENGINEER TO IDENTIFY FALL RISK FACTORS; EDUCATE THE PATIENT/CAREGIVER ON WAYS TO REDUCE FALL RISK FACTORS AND ESTABLISH HOME EXERCISE PROGRAM TO MINIMIZE FALL RISK. MAY TEACH THE PATIENT FLOOR RECOVERY WHEN CLINICALLY APPROPRIATE [code = PT TO EVALUATE, OBSERVE / ASSESS, AND MONITOR, [employer] SALES ENGINEER TO OBSERVE AND MONITOR, PROVIDE SKILLED THERAPEUTIC INTERVENTION, ACTIVITY, EDUCATION, AND TRAINING TO ADDRESS GEN. WEAKNESS, POOR OVERALL ACTIVITY TOLERANCE, AND FUNCTIONAL LIMITATIONS IMPACTING SAFETY AND INDEPENDENCE. BED MOBILITY (PT/[employer] SALES ENGINEER) PT/[employer] SALES ENGINEER TO PROVIDE GAIT TRAINING FOR IMPROVED MOBILITY AND /OR TO NORMALIZE GAIT PATTERN THERAPEUTIC EXERCISES AND ESTABLISHING A HOME EXERCISE PROGRAM (PT/[employer] SALES ENGINEER) PT/[employer] SALES ENGINEER TO PROVIDE STAIR TRAINING PT / [employer] SALES ENGINEER TO MONITOR AND EDUCATE ON OXYGEN SATURATION DURING ADLS/IADLS, NOTIFY PHYSICIAN AND/OR THE RN CLINICAL MINE SURVEYOR FOR PHYSICIAN NOTIFICATION AND IF O2 SATS BELOW PHYSICIAN ORDERED PARAMETERS AFTER 10 MIN OF REST PT / [employer] SALES ENGINEER TO OBSERVE FOR EARLY SIGNS AND SYMPTOMS OF DEPRESSION OR DEPRESSION GETTING WORSE AND TO EDUCATE ON HOW TO FIND HELP. PT / [employer] SALES ENGINEER MAY EDUCATE ON PAIN MANAGEMENT CLINICALLY INDICATED, INCLUDING NON-PHARMACOLOGICAL PAIN REDUCTION TECHNIQUES PT / [employer] SALES ENGINEER TO MONITOR FOR HYPO/HYPERGLYCEMIA AND CONDUCT ROUTINE FOOT INSPECTIONS. RECORD PATIENT REPORTED BLOOD SUGAR LEVELS AND NOTIFY PHYSICIAN AND/OR THE RN CLINICAL MINE SURVEYOR FOR PHYSICIAN NOTIFICATION IF BLOOD SUGAR LEVELS ARE OUTSIDE ORDERED PARAMETERS. TEACH PATIENT/CAREGIVER ON DAILY FOOT INSPECTIONS PT / [employer] SALES ENGINEER TO INSTRUCT PATIENT/CAREGIVER ON RISK FOR HOSPITALIZATION/EMERGENCY ROOM VISITS, TEACH SIGNS AND SYMPTOMS THAT PUT PATIENT AT RISK, WHEN TO NOTIFY NURSE/PHYSICIAN OF COMPLICATIONS/DECLINE, AND WHEN TO CALL 911. PT/[employer] SALES ENGINEER TO EDUCATE ON ARTHRITIS SELF-MANAGEMENT PT / [employer] SALES ENGINEER TO EDUCATE ON HEART FAILURE SELF-MANAGEMENT PT / [employer] SALES ENGINEER TO EDUCATE ON HYPERTENSION SELF-MANAGEMENT PT TO ASSESS / [employer] SALES ENGINEER TO MONITOR CARDIO/RESPIRATORY SYSTEM; AND NOTIFY THE PHYSICIAN AND/OR THE RN CLINICAL MINE SURVEYOR FOR PHYSICIAN NOTIFICATION FOR EARLY SIGNS AND SYMPTOMS OF EXACERBATION OR DETERIORATION. PT / [employer] SALES ENGINEER TO EDUCATE ON ATRIAL FIBRILLATION SELF-MANAGEMENT. PT / [employer] SALES ENGINEER TO EDUCATE ON PNEUMONIA / ASPIRATION PNEUMONIA SELF-MANAGEMENT. PT/[employer] SALES ENGINEER TO IDENTIFY FALL RISK FACTORS; EDUCATE THE PATIENT/CAREGIVER ON WAYS TO REDUCE FALL RISK FACTORS AND ESTABLISH HOME EXERCISE PROGRAM TO MINIMIZE FALL RISK. MAY TEACH THE PATIENT FLOOR RECOVERY WHEN CLINICALLY APPROPRIATE] Future Scheduled Test AGENCY MAY PERFORM A RESUMPTION OF CARE VISIT FOLLOWING ANY HOSPITAL ADMISSION. OT TO EVALUATE, OBSERVE / ASSESS, AND MONITOR, KILN MECHANIC TO OBSERVE AND MONITOR, PROVIDE SKILLED THERAPEUTIC INTERVENTION, ACTIVITY, EDUCATION, AND TRAINING TO ADDRESS SAFETY AND INDEPENDENCE OF ADLS AND FUNCTIONAL TRANSFERS IN HOME ENVIRONMENT. ACTIVITIES OF DAILY LIVING (OT/MARIANNE) THERAPEUTIC EXERCISE (OT/KILN MECHANIC) ENERGY CONSERVATION/ACTIVITY DEMAND (OT/KILN MECHANIC) OT/KILN MECHANIC TO MONITOR AND EDUCATE ON OXYGEN SATURATION DURING ADLS/IADLS, NOTIFY PHYSICIAN AND/OR THE RN CLINICAL MINE SURVEYOR FOR PHYSICIAN NOTIFICATION AND IF O2 SATS BELOW 90% AFTER 10 MIN OF REST. OT / KILN MECHANIC TO IDENTIFY FALL RISK FACTORS; EDUCATE THE PATIENT/CAREGIVER ON WAYS TO REDUCE FALL RISK FACTORS AND ESTABLISH HOME EXERCISE PROGRAM TO MINIMIZE FALL RISK. MAY TEACH THE PATIENT FLOOR RECOVERY WHEN CLINICALLY APPROPRIATE. OT/KILN MECHANIC TO EDUCATE ON HYPERTENSION SELF-MANAGEMENT OT/MARIANNE TO EDUCATE ON ATRIAL FIBRILLATION SELF-MANAGEMENT. [code = AGENCY MAY PERFORM A RESUMPTION OF CARE VISIT FOLLOWING ANY HOSPITAL ADMISSION. OT TO EVALUATE, OBSERVE / ASSESS, AND MONITOR, KILN MECHANIC TO OBSERVE AND MONITOR, PROVIDE SKILLED THERAPEUTIC INTERVENTION, ACTIVITY, EDUCATION, AND TRAINING TO ADDRESS SAFETY AND INDEPENDENCE OF ADLS AND FUNCTIONAL TRANSFERS IN HOME ENVIRONMENT. ACTIVITIES OF DAILY LIVING (OT/MARIANNE) THERAPEUTIC EXERCISE (OT/KILN MECHANIC) ENERGY CONSERVATION/ACTIVITY DEMAND (OT/MARIANNE) OT/KILN MECHANIC TO MONITOR AND EDUCATE ON OXYGEN SATURATION DURING ADLS/IADLS, NOTIFY PHYSICIAN AND/OR THE RN CLINICAL MINE SURVEYOR FOR PHYSICIAN NOTIFICATION AND IF O2 SATS BELOW 90% AFTER 10 MIN OF REST. OT / MARIANNE TO IDENTIFY FALL RISK FACTORS; EDUCATE THE PATIENT/CAREGIVER ON WAYS TO REDUCE FALL RISK FACTORS AND ESTABLISH HOME EXERCISE PROGRAM TO MINIMIZE FALL RISK. MAY TEACH THE PATIENT FLOOR RECOVERY WHEN CLINICALLY APPROPRIATE. OT/KILN MECHANIC TO EDUCATE ON HYPERTENSION SELF-MANAGEMENT OT/MARIANNE [...] Date/Time Encounter Type Admission Type Attending [facility] Care Department Encounter ID Discharge Date Discharge Status Discharge Condition Discharge Reason Percent Goals Met 2025-02-07 00:00:00 2025-04-07 00:00:00 Outpatient NEW ADMISSION [facility] [id number] 26.42
--- OUTSIDE RECORDS SUMMARY | 2025-04-06 18:00 | XMS_ITS | Clinical Summary ---
Author Organization Unknown Care Team Providers Care Aviation Technician Aircraft Name Role Phone DIGNA ARIEL, ESTRELLA Unavailable Unava dinora STOKES RN, FRANKIE Unavailable Unavailabl e KARI PT, DIDI Unavailable Unavailable NAT GENERATOR OPERATOR STRAIGHT BEVEL GEAR, GAUDENCIO Unavailable Unavailabl e RADHA OT, ROLANDO Unavailable Unavailable JOANNE STEVEN, HATTIE Unavailable Unavailable Payers Payer Name Policy Type Policy Number Effective Date Expira tion Date MEDICARE.[facility] [id number] Problems Condition Name Condition Details Condition Category Status Onset Date Resolution Date Last Treatment Date Treating Clinician Comments 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 02-07 [...] OF PNEUMONIA (RECURRENT) Active 02-07 00:00: 00 DIVORCE MEDIATOR (CURRENT) USE OF SYSTEMIC STEROIDS Active 02-07 [...] 80 mg tablet 02-07 00:00: 00 Yes [id number] CHOLESTEROL 1 tablet DAILY 1 tablet DAILY (route: oral) Med Classific ation: Cardiovas cular Therapy Agents digoxin 125 mcg (0.125 mg) tablet 02-07 00:00: 00 02-21 23:59 :00 No [id number] HEART RHYTHM 1 tablet DAILY 1 tablet DAILY (route: oral) Med Classific ation: Cardiovas cular Therapy Agents escitalopra m 10 mg tablet 02-07 00:00: 00 Yes [id number] MOOD 1 tablet DAILY 1 tablet DAILY (route: oral) Med Classific ation: Central Nervous System Agents ezetimibe 10 mg tablet 02-07 00:00: 00 Yes [id number] CHOLESTEROL 1 tablet DAILY 1 tablet DAILY (route: oral) Med Classific ation: Cardiovas cular Therapy Agents metoprolol succinate ER 25 mg tablet,exte nded release 24 hr 02-07 00:00: 00 02-21 23:59 :00 No [id number] BLOOD PRESSURE 0.5 tablet DAILY 0.5 tablet DAILY (route: oral) Med Classific ation: Cardiovas cular Therapy Agents pantoprazol e 40 mg tablet,joão yed release 02-07 00:00: 00 02-21 23:59 :00 No [id number] STOMACH ACID 1 tablet DAILY 1 tablet DAILY (route: oral) Med Classific ation: Gastroint estinal Therapy Agents prednisone 5 mg tablet 02-07 00:00: 00 Yes [id number] ADRENAL INSUFFICIEN CY 1 tablet DAILY 1 tablet DAILY (route: oral) Med Classific ation: Endocrine spironolact one 25 mg tablet 02-07 00:00: 00 Yes [id number] FLUID RETENTION 0.5 tablet DAILY 0.5 tablet DAILY (route: oral) Med Classific ation: Cardiovas cular Therapy Agents tamsulosin 0.4 mg capsule 02-07 00:00: 00 02-21 23:59 :00 No [id number] URINARY HEALTH 1 capsule DAILY 1 capsule DAILY (route: oral) Med Classific ation: Genitouri nary Therapy acetaminoph en 325 mg tablet 2024-05 00:00: 00 Yes [id number] PAIN 2 tablet 2 TIMES DAILY 2 tablet 2 TIMES DAILY (route: oral) Med Classific ation: Analgesic , Anti-infl ammatory or Antipyret ic aspirin 81 mg tablet 2024-05 00:00: 00 Yes [id number] ANTICOAGULA NT 1 tablet DAILY 1 tablet DAILY (route: oral) Med Classific ation: Hematolog ical Agents ipratropium 0.5 mg-albutero l 3 mg (2.5 mg base)/3 mL nebulizatio n soln 2024-05 00:00: 00 Yes [id number] COPD 3 mL EVERY 6 HOURS 3 mL EVERY 6 HOURS (route: inhalation ) Med Classific ation: Respirato ry Therapy Agents Lanoxin 62.5 mcg (0.0625 mg) tablet 2024-05 00:00: 00 Yes [id number] CHF 1 tablet DAILY 1 tablet DAILY (route: oral) Med Classific ation: Cardiovas cular Therapy Agents Lasix 20 mg tablet 2024-05 00:00: 00 Yes [id number] CHF 1 tablet DAILY 1 tablet DAILY (route: oral) Med Classific ation: Cardiovas cular Therapy Agents Toprol XL 25 mg tablet,exte nded release 2024-05 00:00: 00 Yes [id number] BP 25 mg DAILY 25 mg DAILY [...] SYSTEM MANAGEMENT; RN TO ASSESS AND TEACH, PATHOLOGY LABORATORY AIDE/SHAREPOINT DESIGNER DEVELOPER TO OBSERVE AND TEACH RELATED TO ALTERED RESPIRATORY STATUS TO MINIMIZE COMPLICATIONS AND REDUCE HOSPITALIZATION. [code = SN 1WK9 PT 1WK1 OT EFFECTIVE 02/10/2025K1 RESPIRATORY SYSTEM MANAGEMENT; RN TO ASSESS AND TEACH, PATHOLOGY LABORATORY AIDE/SHAREPOINT DESIGNER DEVELOPER TO OBSERVE AND TEACH RELATED TO ALTERED RESPIRATORY STATUS TO MINIMIZE COMPLICATIONS AND REDUCE HOSPITALIZATION.] Future Scheduled Test TRACHEOSTO MY CARE MANAGEMENT; RN/PATHOLOGY LABORATORY AIDE/SHAREPOINT DESIGNER DEVELOPER TO INSTRUCT PATIENT/CAREGIVER ON CARE AND MANAGEMENT OF TRACHEOSTOMY. RN/ PATHOLOGY LABORATORY AIDE/SHAREPOINT DESIGNER DEVELOPER TO PROVIDE SKILLED TEACHING ON TRACH COLLAR SUCTIONING PRN WITH 14 FR SUCTION CATHETER PER PATIENT TRACH CARE WITH INNER CANNULA: REMOVE INNER CANNULA, CLEANSE WITH NORMAL SALINE AND OR STERILE WATER AND REINSERT NON-DISPOSABLE CANNULA SIZE OF INNER CANNULA 5 BROOKS [code = TRACHEOSTOMY CARE MANAGEMENT; RN/PATHOLOGY LABORATORY AIDE/SHAREPOINT DESIGNER DEVELOPER TO INSTRUCT PATIENT/CAREGIVER ON CARE AND MANAGEMENT OF TRACHEOSTOMY. RN/ PATHOLOGY LABORATORY AIDE/SHAREPOINT DESIGNER DEVELOPER TO PROVIDE SKILLED TEACHING ON TRACH COLLAR SUCTIONING PRN WITH 14 FR SUCTION CATHETER PER PATIENT TRACH CARE WITH INNER CANNULA: REMOVE INNER CANNULA, CLEANSE WITH NORMAL SALINE AND OR STERILE WATER AND REINSERT NON-DISPOSABLE CANNULA SIZE OF INNER CANNULA 5 BROOKS] Future Scheduled Test FALL REDUC TION MANAGEMENT; RN TO ASSESS AND OBSERVE, PATHOLOGY LABORATORY AIDE/SHAREPOINT DESIGNER DEVELOPER TO OBSERVE FALL RISK FACTORS AND EDUCATE PATIENT/CAREGIVER ON STRATEGIES TO MINIMIZE THE RISK OF FALLING. [code = FALL REDUCTION MANAGEMENT; RN TO ASSESS AND OBSERVE, PATHOLOGY LABORATORY AIDE/SHAREPOINT DESIGNER DEVELOPER TO OBSERVE FALL RISK FACTORS AND EDUCATE PATIENT/CAREGIVER ON STRATEGIES TO MINIMIZE THE RISK OF FALLING.] Future Scheduled Test ANEMIA MAN AGEMENT; RN TO ASSESS AND TEACH, SHAREPOINT DESIGNER DEVELOPER/PATHOLOGY LABORATORY AIDE TO OBSERVE AND TEACH AND PROVIDE EDUCATION ON ANEMIA. [code = ANEMIA MANAGEMENT; RN TO ASSESS AND TEACH, SHAREPOINT DESIGNER DEVELOPER/PATHOLOGY LABORATORY AIDE TO OBSERVE AND TEACH AND PROVIDE EDUCATION ON ANEMIA.] Future Scheduled Test RN TO OBSE RVE, ASSESS, EVALUATE, AND DEVELOP AN INDIVIDUALIZED PLAN OF CARE. AGENCY MAY ACCEPT ORDERS FROM CONSULTING PHYSICIANS RN TO OBSERVE AND ASSESS, PATHOLOGY LABORATORY AIDE/SHAREPOINT DESIGNER DEVELOPER TO OBSERVE FOR RISK FOR FALLS AND INSTRUCT IN FALL PREVENTION, HOME SAFETY, MEDICATION MANAGEMENT, INFECTION PREVENTION, AND NUTRITION MANAGEMENT. RN/PATHOLOGY LABORATORY AIDE/SHAREPOINT DESIGNER DEVELOPER NURSE MAY PERFORM O2 SATURATION LEVEL ON ADMISSION AND PRN FOR RN TO ASSESS/PATHOLOGY LABORATORY AIDE TO OBSERVE PATIENT, WITH NOTIFICATION TO THE PHYSICIAN IF SATURATION IS 90% IN THE ABSENCE OF MORE SPECIFIC PARAMETERS FROM THE PHYSICIAN. AGENCY MAY PERFORM A RESUMPTION OF CARE VISIT FOLLOWING ANY HOSPITAL ADMISSION. RN/PATHOLOGY LABORATORY AIDE/SHAREPOINT DESIGNER DEVELOPER TO MONITOR CO-MORBID CONDITIONS LISTED ON THE PLAN OF CARE AND ANY NEW CONDITIONS THAT PRESENT THEMSELVES DURING THIS EPISODE TO IDENTIFY CHANGES AND INTERVENE TO MINIMIZE COMPLICATIONS. [code = RN TO OBSERVE, ASSESS, EVALUATE, AND DEVELOP AN INDIVIDUALIZED PLAN OF CARE. AGENCY MAY ACCEPT ORDERS FROM CONSULTING PHYSICIANS RN TO OBSERVE AND ASSESS, PATHOLOGY LABORATORY AIDE/SHAREPOINT DESIGNER DEVELOPER TO OBSERVE FOR RISK FOR FALLS AND INSTRUCT IN FALL PREVENTION, HOME SAFETY, MEDICATION MANAGEMENT, INFECTION PREVENTION, AND NUTRITION MANAGEMENT. RN/PATHOLOGY LABORATORY AIDE/SHAREPOINT DESIGNER DEVELOPER NURSE MAY PERFORM O2 SATURATION LEVEL ON ADMISSION AND PRN FOR RN TO ASSESS/PATHOLOGY LABORATORY AIDE TO OBSERVE PATIENT, WITH NOTIFICATION TO THE PHYSICIAN IF SATURATION IS 90% IN THE ABSENCE OF MORE SPECIFIC PARAMETERS FROM THE PHYSICIAN. AGENCY MAY PERFORM A RESUMPTION OF CARE VISIT FOLLOWING ANY HOSPITAL ADMISSION. RN/PATHOLOGY LABORATORY AIDE/SHAREPOINT DESIGNER DEVELOPER TO MONITOR CO-MORBID CONDITIONS LISTED ON THE PLAN OF CARE AND ANY NEW CONDITIONS THAT PRESENT THEMSELVES DURING THIS EPISODE TO IDENTIFY CHANGES AND INTERVENE TO MINIMIZE COMPLICATIONS.] Future Scheduled Test PAIN MANAG EMENT; RN TO ASSESS AND TEACH, SHAREPOINT DESIGNER DEVELOPER/PATHOLOGY LABORATORY AIDE TO OBSERVE AND TEACH AND PROVIDE EDUCATION ON PAIN MANAGEMENT TECHNIQUES. [code = PAIN MANAGEMENT; RN TO ASSESS AND TEACH, SHAREPOINT DESIGNER DEVELOPER/PATHOLOGY LABORATORY AIDE TO OBSERVE AND TEACH AND PROVIDE EDUCATION ON PAIN MANAGEMENT TECHNIQUES.] Future Scheduled Test RISK FOR H OSPITALIZATION; RN TO ASSESS/TEACH, SHAREPOINT DESIGNER DEVELOPER/PATHOLOGY LABORATORY AIDE TO OBSERVE/TEACH PATIENT/CAREGIVER ON RISK FOR HOSPITALIZATION/EMERGENCY ROOM VISITS, TEACH SIGNS AND SYMPTOMS THAT PUT PATIENT AT RISK, WHEN TO NOTIFY NURSE/PHYSICIAN OF COMPLICATIONS/DECLINE, AND WHEN TO CALL 911. [code = RISK FOR HOSPITALIZATION; RN TO ASSESS/TEACH, SHAREPOINT DESIGNER DEVELOPER/PATHOLOGY LABORATORY AIDE TO OBSERVE/TEACH PATIENT/CAREGIVER ON RISK FOR HOSPITALIZATION/EMERGENCY ROOM VISITS, TEACH SIGNS AND SYMPTOMS THAT PUT PATIENT AT RISK, WHEN TO NOTIFY NURSE/PHYSICIAN OF COMPLICATIONS/DECLINE, AND WHEN TO CALL 911.] Future Scheduled Test CARDIOVASC ULAR SYSTEM; RN TO ASSESS/TEACH, PATHOLOGY LABORATORY AIDE/SHAREPOINT DESIGNER DEVELOPER TO OBSERVE/TEACH RELATED TO ALTERED CARDIOVASCULAR STATUS TO MINIMIZE COMPLICATIONS AND REDUCE HOSPITALIZATION. [code = CARDIOVASCULAR SYSTEM; RN TO ASSESS/TEACH, PATHOLOGY LABORATORY AIDE/SHAREPOINT DESIGNER DEVELOPER TO OBSERVE/TEACH RELATED TO ALTERED CARDIOVASCULAR STATUS TO MINIMIZE COMPLICATIONS AND REDUCE HOSPITALIZATION.] Future Scheduled Test HYPERTENSI ON MANAGEMENT; RN TO ASSESS AND TEACH, PATHOLOGY LABORATORY AIDE/SHAREPOINT DESIGNER DEVELOPER TO OBSERVE AND TEACH WARNING SIGNS AND SYMPTOMS TO AVOID HOSPITALIZATION. [code = HYPERTENSION MANAGEMENT; RN TO ASSESS AND TEACH, PATHOLOGY LABORATORY AIDE/SHAREPOINT DESIGNER DEVELOPER TO OBSERVE AND TEACH WARNING SIGNS AND SYMPTOMS TO AVOID HOSPITALIZATION.] Future Scheduled Test HEART FAIL URE MONITORING RN/SHAREPOINT DESIGNER DEVELOPER/PATHOLOGY LABORATORY AIDE TO MONITOR PATIENT FOR SIGNS AND SYMPTOMS OF HEART FAILURE EXACERBATION, MONITOR FOR ADHERENCE WITH MEDICATION AND HEART FAILURE MANAGEMENT REGIMEN. [code = HEART FAILURE MONITORING RN/SHAREPOINT DESIGNER DEVELOPER/PATHOLOGY LABORATORY AIDE TO MONITOR PATIENT FOR SIGNS AND SYMPTOMS OF HEART FAILURE EXACERBATION, MONITOR FOR ADHERENCE WITH MEDICATION AND HEART FAILURE MANAGEMENT REGIMEN.] Future Scheduled Test DIABETES M ONITORING RN/SHAREPOINT DESIGNER DEVELOPER/PATHOLOGY LABORATORY AIDE TO MONITOR BLOOD SUGAR LOG FOR BLOOD SUGAR READINGS THAT ARE BEING CHECKED BY PATIENT, CAREGIVER NEEDED FOR SIGNS AND SYMPTOMS OF HYPER/HYPOGLYCEMIA. PATIENT THERAPEUTIC BLOOD SUGAR PARAMETERS ARE 70 - 300. REPORT BLOOD SUGARS OUT OF RANGE TO PHYSICIAN. NURSE MAY PERFORM FINGER STICK BLOOD GLUCOSE NEEDED FOR SIGNS AND SYMPTOMS OF HYPO AND HYPERGLYCEMIA. RN/SHAREPOINT DESIGNER DEVELOPER/PATHOLOGY LABORATORY AIDE TO MONITOR ADHERENCE OF PATIENT/CAREGIVER PERFORMING DIABETIC FOOT CARE AND MAY PERFORM DIABETIC FOOT CARE PRN. RN/SHAREPOINT DESIGNER DEVELOPER/PATHOLOGY LABORATORY AIDE TO MONITOR FOR ADHERENCE TO DIABETIC SELF-CARE AND MANAGEMENT INCLUDING MEDICATIONS. [code = DIABETES MONITORING RN/SHAREPOINT DESIGNER DEVELOPER/PATHOLOGY LABORATORY AIDE TO MONITOR BLOOD SUGAR LOG FOR BLOOD SUGAR READINGS THAT ARE BEING CHECKED BY PATIENT, CAREGIVER NEEDED FOR SIGNS AND SYMPTOMS OF HYPER/HYPOGLYCEMIA. PATIENT THERAPEUTIC BLOOD SUGAR PARAMETERS ARE 70 - 300. REPORT BLOOD SUGARS OUT OF RANGE TO PHYSICIAN. NURSE MAY PERFORM FINGER STICK BLOOD GLUCOSE NEEDED FOR SIGNS AND SYMPTOMS OF HYPO AND HYPERGLYCEMIA. RN/SHAREPOINT DESIGNER DEVELOPER/PATHOLOGY LABORATORY AIDE TO MONITOR ADHERENCE OF PATIENT/CAREGIVER PERFORMING DIABETIC FOOT CARE AND MAY PERFORM DIABETIC FOOT CARE PRN. RN/SHAREPOINT DESIGNER DEVELOPER/PATHOLOGY LABORATORY AIDE TO MONITOR FOR ADHERENCE TO DIABETIC SELF-CARE AND MANAGEMENT INCLUDING MEDICATIONS.] Future Scheduled Test HYPOTENSIO N MANAGEMENT; RN TO ASSESS AND TEACH/ PATHOLOGY LABORATORY AIDE /SHAREPOINT DESIGNER DEVELOPER TO OBSERVE AND TEACH WARNING SIGNS AND SYMPTOMS TO AVOID HOSPITALIZATION. [code = HYPOTENSION MANAGEMENT; RN TO ASSESS AND TEACH/ PATHOLOGY LABORATORY AIDE /SHAREPOINT DESIGNER DEVELOPER TO OBSERVE AND TEACH WARNING SIGNS AND SYMPTOMS TO AVOID HOSPITALIZATION.] Future Scheduled Test ARRHYTHMIA MANAGEMENT; RN TO ASSESS AND TEACH, PATHOLOGY LABORATORY AIDE/SHAREPOINT DESIGNER DEVELOPER TO OBSERVE AND TEACH WARNING SIGNS AND SYMPTOMS TO AVOID HOSPITALIZATION. [code = ARRHYTHMIA MANAGEMENT; RN TO ASSESS AND TEACH, PATHOLOGY LABORATORY AIDE/SHAREPOINT DESIGNER DEVELOPER TO OBSERVE AND TEACH WARNING SIGNS AND SYMPTOMS TO AVOID HOSPITALIZATION.] Future Scheduled Test MEDICATION MANAGEMENT; RN/PATHOLOGY LABORATORY AIDE/SHAREPOINT DESIGNER DEVELOPER TO REVIEW MEDICATIONS FOR INTERACTIONS, EFFECTIVENESS OF DRUG THERAPY, AND SIGNS/SYMPTOMS OF ADVERSE REACTIONS. MAY INSTRUCT AND REINFORCE MEDICATION TEACHING RELATED TO THE USE OF MEDICATIONS, DOSAGE, FREQUENCY, PURPOSE, SIDE EFFECTS, AND TO REPORT COMPLICATIONS. [code = MEDICATION MANAGEMENT; RN/PATHOLOGY LABORATORY AIDE/SHAREPOINT DESIGNER DEVELOPER TO REVIEW MEDICATIONS FOR INTERACTIONS, EFFECTIVENESS OF [...] EVAL UATE, OBSERVE / ASSESS, AND MONITOR, GENERATOR OPERATOR STRAIGHT BEVEL GEAR TO OBSERVE AND MONITOR, PROVIDE SKILLED THERAPEUTIC INTERVENTION, ACTIVITY, EDUCATION, AND TRAINING TO ADDRESS GEN. WEAKNESS, POOR OVERALL ACTIVITY TOLERANCE, AND FUNCTIONAL LIMITATIONS IMPACTING SAFETY AND INDEPENDENCE. BED MOBILITY (PT/GENERATOR OPERATOR STRAIGHT BEVEL GEAR) PT/GENERATOR OPERATOR STRAIGHT BEVEL GEAR TO PROVIDE GAIT TRAINING FOR IMPROVED MOBILITY AND /OR TO NORMALIZE GAIT PATTERN THERAPEUTIC EXERCISES AND ESTABLISHING A HOME EXERCISE PROGRAM (PT/GENERATOR OPERATOR STRAIGHT BEVEL GEAR) PT/GENERATOR OPERATOR STRAIGHT BEVEL GEAR TO PROVIDE STAIR TRAINING PT / GENERATOR OPERATOR STRAIGHT BEVEL GEAR TO MONITOR AND EDUCATE ON OXYGEN SATURATION DURING ADLS/IADLS, NOTIFY PHYSICIAN AND/OR THE RN CLINICAL FARM SERVICE CONSULTANT FOR PHYSICIAN NOTIFICATION AND IF O2 SATS BELOW PHYSICIAN ORDERED PARAMETERS AFTER 10 MIN OF REST PT / GENERATOR OPERATOR STRAIGHT BEVEL GEAR TO OBSERVE FOR EARLY SIGNS AND SYMPTOMS OF DEPRESSION OR DEPRESSION GETTING WORSE AND TO EDUCATE ON HOW TO FIND HELP. PT / GENERATOR OPERATOR STRAIGHT BEVEL GEAR MAY EDUCATE ON PAIN MANAGEMENT CLINICALLY INDICATED, INCLUDING NON-PHARMACOLOGICAL PAIN REDUCTION TECHNIQUES PT / GENERATOR OPERATOR STRAIGHT BEVEL GEAR TO MONITOR FOR HYPO/HYPERGLYCEMIA AND CONDUCT ROUTINE FOOT INSPECTIONS. RECORD PATIENT REPORTED BLOOD SUGAR LEVELS AND NOTIFY PHYSICIAN AND/OR THE RN CLINICAL FARM SERVICE CONSULTANT FOR PHYSICIAN NOTIFICATION IF BLOOD SUGAR LEVELS ARE OUTSIDE ORDERED PARAMETERS. TEACH PATIENT/CAREGIVER ON DAILY FOOT INSPECTIONS PT / GENERATOR OPERATOR STRAIGHT BEVEL GEAR TO INSTRUCT PATIENT/CAREGIVER ON RISK FOR HOSPITALIZATION/EMERGENCY ROOM VISITS, TEACH SIGNS AND SYMPTOMS THAT PUT PATIENT AT RISK, WHEN TO NOTIFY NURSE/PHYSICIAN OF COMPLICATIONS/DECLINE, AND WHEN TO CALL 911. PT/GENERATOR OPERATOR STRAIGHT BEVEL GEAR TO EDUCATE ON ARTHRITIS SELF-MANAGEMENT PT / GENERATOR OPERATOR STRAIGHT BEVEL GEAR TO EDUCATE ON HEART FAILURE SELF-MANAGEMENT PT / GENERATOR OPERATOR STRAIGHT BEVEL GEAR TO EDUCATE ON HYPERTENSION SELF-MANAGEMENT PT TO ASSESS / GENERATOR OPERATOR STRAIGHT BEVEL GEAR TO MONITOR CARDIO/RESPIRATORY SYSTEM; AND NOTIFY THE PHYSICIAN AND/OR THE RN CLINICAL FARM SERVICE CONSULTANT FOR PHYSICIAN NOTIFICATION FOR EARLY SIGNS AND SYMPTOMS OF EXACERBATION OR DETERIORATION. PT / GENERATOR OPERATOR STRAIGHT BEVEL GEAR TO EDUCATE ON ATRIAL FIBRILLATION SELF-MANAGEMENT. PT / GENERATOR OPERATOR STRAIGHT BEVEL GEAR TO EDUCATE ON PNEUMONIA / ASPIRATION PNEUMONIA SELF-MANAGEMENT. PT/GENERATOR OPERATOR STRAIGHT BEVEL GEAR TO IDENTIFY FALL RISK FACTORS; EDUCATE THE PATIENT/CAREGIVER ON WAYS TO REDUCE FALL RISK FACTORS AND ESTABLISH HOME EXERCISE PROGRAM TO MINIMIZE FALL RISK. MAY TEACH THE PATIENT FLOOR RECOVERY WHEN CLINICALLY APPROPRIATE [code = PT TO EVALUATE, OBSERVE / ASSESS, AND MONITOR, GENERATOR OPERATOR STRAIGHT BEVEL GEAR TO OBSERVE AND MONITOR, PROVIDE SKILLED THERAPEUTIC INTERVENTION, ACTIVITY, EDUCATION, AND TRAINING TO ADDRESS GEN. WEAKNESS, POOR OVERALL ACTIVITY TOLERANCE, AND FUNCTIONAL LIMITATIONS IMPACTING SAFETY AND INDEPENDENCE. BED MOBILITY (PT/GENERATOR OPERATOR STRAIGHT BEVEL GEAR) PT/GENERATOR OPERATOR STRAIGHT BEVEL GEAR TO PROVIDE GAIT TRAINING FOR IMPROVED MOBILITY AND /OR TO NORMALIZE GAIT PATTERN THERAPEUTIC EXERCISES AND ESTABLISHING A HOME EXERCISE PROGRAM (PT/GENERATOR OPERATOR STRAIGHT BEVEL GEAR) PT/GENERATOR OPERATOR STRAIGHT BEVEL GEAR TO PROVIDE STAIR TRAINING PT / GENERATOR OPERATOR STRAIGHT BEVEL GEAR TO MONITOR AND EDUCATE ON OXYGEN SATURATION DURING ADLS/IADLS, NOTIFY PHYSICIAN AND/OR THE RN CLINICAL FARM SERVICE CONSULTANT FOR PHYSICIAN NOTIFICATION AND IF O2 SATS BELOW PHYSICIAN ORDERED PARAMETERS AFTER 10 MIN OF REST PT / GENERATOR OPERATOR STRAIGHT BEVEL GEAR TO OBSERVE FOR EARLY SIGNS AND SYMPTOMS OF DEPRESSION OR DEPRESSION GETTING WORSE AND TO EDUCATE ON HOW TO FIND HELP. PT / GENERATOR OPERATOR STRAIGHT BEVEL GEAR MAY EDUCATE ON PAIN MANAGEMENT CLINICALLY INDICATED, INCLUDING NON-PHARMACOLOGICAL PAIN REDUCTION TECHNIQUES PT / GENERATOR OPERATOR STRAIGHT BEVEL GEAR TO MONITOR FOR HYPO/HYPERGLYCEMIA AND CONDUCT ROUTINE FOOT INSPECTIONS. RECORD PATIENT REPORTED BLOOD SUGAR LEVELS AND NOTIFY PHYSICIAN AND/OR THE RN CLINICAL FARM SERVICE CONSULTANT FOR PHYSICIAN NOTIFICATION IF BLOOD SUGAR LEVELS ARE OUTSIDE ORDERED PARAMETERS. TEACH PATIENT/CAREGIVER ON DAILY FOOT INSPECTIONS PT / GENERATOR OPERATOR STRAIGHT BEVEL GEAR TO INSTRUCT PATIENT/CAREGIVER ON RISK FOR HOSPITALIZATION/EMERGENCY ROOM VISITS, TEACH SIGNS AND SYMPTOMS THAT PUT PATIENT AT RISK, WHEN TO NOTIFY NURSE/PHYSICIAN OF COMPLICATIONS/DECLINE, AND WHEN TO CALL 911. PT/GENERATOR OPERATOR STRAIGHT BEVEL GEAR TO EDUCATE ON ARTHRITIS SELF-MANAGEMENT PT / GENERATOR OPERATOR STRAIGHT BEVEL GEAR TO EDUCATE ON HEART FAILURE SELF-MANAGEMENT PT / GENERATOR OPERATOR STRAIGHT BEVEL GEAR TO EDUCATE ON HYPERTENSION SELF-MANAGEMENT PT TO ASSESS / GENERATOR OPERATOR STRAIGHT BEVEL GEAR TO MONITOR CARDIO/RESPIRATORY SYSTEM; AND NOTIFY THE PHYSICIAN AND/OR THE RN CLINICAL FARM SERVICE CONSULTANT FOR PHYSICIAN NOTIFICATION FOR EARLY SIGNS AND SYMPTOMS OF EXACERBATION OR DETERIORATION. PT / GENERATOR OPERATOR STRAIGHT BEVEL GEAR TO EDUCATE ON ATRIAL FIBRILLATION SELF-MANAGEMENT. PT / GENERATOR OPERATOR STRAIGHT BEVEL GEAR TO EDUCATE ON PNEUMONIA / ASPIRATION PNEUMONIA SELF-MANAGEMENT. PT/GENERATOR OPERATOR STRAIGHT BEVEL GEAR TO IDENTIFY FALL RISK FACTORS; EDUCATE THE PATIENT/CAREGIVER ON WAYS TO REDUCE FALL RISK FACTORS AND ESTABLISH HOME EXERCISE PROGRAM TO MINIMIZE FALL RISK. MAY TEACH THE PATIENT FLOOR RECOVERY WHEN CLINICALLY APPROPRIATE] Future Scheduled Test AGENCY MAY PERFORM A RESUMPTION OF CARE VISIT FOLLOWING ANY HOSPITAL ADMISSION. OT TO EVALUATE, OBSERVE / ASSESS, AND MONITOR, TRACK WORKER TO OBSERVE AND MONITOR, PROVIDE SKILLED THERAPEUTIC INTERVENTION, ACTIVITY, EDUCATION, AND TRAINING TO ADDRESS SAFETY AND INDEPENDENCE OF ADLS AND FUNCTIONAL TRANSFERS IN HOME ENVIRONMENT. ACTIVITIES OF DAILY LIVING (OT/MARIANNE) THERAPEUTIC EXERCISE (OT/TRACK WORKER) ENERGY CONSERVATION/ACTIVITY DEMAND (OT/TRACK WORKER) OT/TRACK WORKER TO MONITOR AND EDUCATE ON OXYGEN SATURATION DURING ADLS/IADLS, NOTIFY PHYSICIAN AND/OR THE RN CLINICAL FARM SERVICE CONSULTANT FOR PHYSICIAN NOTIFICATION AND IF O2 SATS BELOW 90% AFTER 10 MIN OF REST. OT / TRACK WORKER TO IDENTIFY FALL RISK FACTORS; EDUCATE THE PATIENT/CAREGIVER ON WAYS TO REDUCE FALL RISK FACTORS AND ESTABLISH HOME EXERCISE PROGRAM TO MINIMIZE FALL RISK. MAY TEACH THE PATIENT FLOOR RECOVERY WHEN CLINICALLY APPROPRIATE. OT/TRACK WORKER TO EDUCATE ON HYPERTENSION SELF-MANAGEMENT OT/MARIANNE TO EDUCATE ON ATRIAL FIBRILLATION SELF-MANAGEMENT. [code = AGENCY MAY PERFORM A RESUMPTION OF CARE VISIT FOLLOWING ANY HOSPITAL ADMISSION. OT TO EVALUATE, OBSERVE / ASSESS, AND MONITOR, TRACK WORKER TO OBSERVE AND MONITOR, PROVIDE SKILLED THERAPEUTIC INTERVENTION, ACTIVITY, EDUCATION, AND TRAINING TO ADDRESS SAFETY AND INDEPENDENCE OF ADLS AND FUNCTIONAL TRANSFERS IN HOME ENVIRONMENT. ACTIVITIES OF DAILY LIVING (OT/MARIANNE) THERAPEUTIC EXERCISE (OT/TRACK WORKER) ENERGY CONSERVATION/ACTIVITY DEMAND (OT/MARIANNE) OT/TRACK WORKER TO MONITOR AND EDUCATE ON OXYGEN SATURATION DURING ADLS/IADLS, NOTIFY PHYSICIAN AND/OR THE RN CLINICAL FARM SERVICE CONSULTANT FOR PHYSICIAN NOTIFICATION AND IF O2 SATS BELOW 90% AFTER 10 MIN OF REST. OT / MARIANNE TO IDENTIFY FALL RISK FACTORS; EDUCATE THE PATIENT/CAREGIVER ON WAYS TO REDUCE FALL RISK FACTORS AND ESTABLISH HOME EXERCISE PROGRAM TO MINIMIZE FALL RISK. MAY TEACH THE PATIENT FLOOR RECOVERY WHEN CLINICALLY APPROPRIATE. OT/TRACK WORKER TO EDUCATE ON HYPERTENSION SELF-MANAGEMENT OT/MARIANNE TO [...] OF SKIN INTEGRITY ISSUES FROM [place] WITHIN 2 WKS. PT STG: PATIENT WILL [...] TO SAFELY NEGOTIATE STAIRS FROM [place] WITH 2 STEPS W/O HANDRAIL VIA FRONT [...] Outpatient NEW ADMISSION [facility] [id number]
--- OUTSIDE RECORDS SUMMARY | 2025-04-06 18:00 | XMS_ITS | Clinical Summary ---
Author Organization Unknown Care Team Providers Care Ticker Maintainer Name Role Phone DIGNA ARIEL, ESTRELLA Unavailable Unava dinora STOKES RN, FRANKIE Unavailable Unavailabl e KARI PT, DIDI Unavailable Unavailable NAT EXPRESS CLERK, GAUDENCIO Unavailable Unavailabl e RADHA OT, ROLANDO Unavailable Unavailable JOANNE STEVEN, HATTIE Unavailable Unavailable Payers Payer Name Policy Type Policy Number Effective Date Expira tion Date MEDICARE.[facility] [id number] Problems Condition Name Condition Details Condition Category Status Onset Date Resolution Date Last Treatment Date Treating Clinician Comments 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 02-07 [...] OF PNEUMONIA (RECURRENT) Active 02-07 00:00: 00 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) USE OF SYSTEMIC STEROIDS Active [...] 80 mg tablet 02-07 00:00: 00 Yes [id number] CHOLESTEROL 1 tablet DAILY 1 tablet DAILY (route: oral) Med Classific ation: Cardiovas cular Therapy Agents digoxin 125 mcg (0.125 mg) tablet 02-07 00:00: 00 02-21 23:59 :00 No [id number] HEART RHYTHM 1 tablet DAILY 1 tablet DAILY (route: oral) Med Classific ation: Cardiovas cular Therapy Agents escitalopra m 10 mg tablet 02-07 00:00: 00 Yes [id number] MOOD 1 tablet DAILY 1 tablet DAILY (route: oral) Med Classific ation: Central Nervous System Agents ezetimibe 10 mg tablet 02-07 00:00: 00 Yes [id number] CHOLESTEROL 1 tablet DAILY 1 tablet DAILY (route: oral) Med Classific ation: Cardiovas cular Therapy Agents metoprolol succinate ER 25 mg tablet,exte nded release 24 hr 02-07 00:00: 00 02-21 23:59 :00 No [id number] BLOOD PRESSURE 0.5 tablet DAILY 0.5 tablet DAILY (route: oral) Med Classific ation: Cardiovas cular Therapy Agents pantoprazol e 40 mg tablet,joão yed release 02-07 00:00: 00 02-21 23:59 :00 No [id number] STOMACH ACID 1 tablet DAILY 1 tablet DAILY (route: oral) Med Classific ation: Gastroint estinal Therapy Agents prednisone 5 mg tablet 02-07 00:00: 00 Yes [id number] ADRENAL INSUFFICIEN CY 1 tablet DAILY 1 tablet DAILY (route: oral) Med Classific ation: Endocrine spironolact one 25 mg tablet 02-07 00:00: 00 Yes [id number] FLUID RETENTION 0.5 tablet DAILY 0.5 tablet DAILY (route: oral) Med Classific ation: Cardiovas cular Therapy Agents tamsulosin 0.4 mg capsule 02-07 00:00: 00 02-21 23:59 :00 No [id number] URINARY HEALTH 1 capsule DAILY 1 capsule DAILY (route: oral) Med Classific ation: Genitouri nary Therapy acetaminoph en 325 mg tablet 2024-05 00:00: 00 Yes [id number] PAIN 2 tablet 2 TIMES DAILY 2 tablet 2 TIMES DAILY (route: oral) Med Classific ation: Analgesic , Anti-infl ammatory or Antipyret ic aspirin 81 mg tablet 2024-05 00:00: 00 Yes [id number] ANTICOAGULA NT 1 tablet DAILY 1 tablet DAILY (route: oral) Med Classific ation: Hematolog ical Agents ipratropium 0.5 mg-albutero l 3 mg (2.5 mg base)/3 mL nebulizatio n soln 2024-05 00:00: 00 Yes [id number] COPD 3 mL EVERY 6 HOURS 3 mL EVERY 6 HOURS (route: inhalation ) Med Classific ation: Respirato ry Therapy Agents Lanoxin 62.5 mcg (0.0625 mg) tablet 2024-05 00:00: 00 Yes [id number] CHF 1 tablet DAILY 1 tablet DAILY (route: oral) Med Classific ation: Cardiovas cular Therapy Agents Lasix 20 mg tablet 2024-05 00:00: 00 Yes [id number] CHF 1 tablet DAILY 1 tablet DAILY (route: oral) Med Classific ation: Cardiovas cular Therapy Agents Toprol XL 25 mg tablet,exte nded release 2024-05 00:00: 00 Yes [id number] BP 25 mg DAILY 25 mg DAILY [...] SYSTEM MANAGEMENT; RN TO ASSESS AND TEACH, INSURANCE LOSS ASSESSOR/POSTING SPECIALIST TO OBSERVE AND TEACH RELATED TO ALTERED RESPIRATORY STATUS TO MINIMIZE COMPLICATIONS AND REDUCE HOSPITALIZATION. [code = SN 1WK9 PT 1WK1 OT EFFECTIVE 02/10/2025K1 RESPIRATORY SYSTEM MANAGEMENT; RN TO ASSESS AND TEACH, INSURANCE LOSS ASSESSOR/POSTING SPECIALIST TO OBSERVE AND TEACH RELATED TO ALTERED RESPIRATORY STATUS TO MINIMIZE COMPLICATIONS AND REDUCE HOSPITALIZATION.] Future Scheduled Test TRACHEOSTO MY CARE MANAGEMENT; RN/INSURANCE LOSS ASSESSOR/POSTING SPECIALIST TO INSTRUCT PATIENT/CAREGIVER ON CARE AND MANAGEMENT OF TRACHEOSTOMY. RN/ INSURANCE LOSS ASSESSOR/POSTING SPECIALIST TO PROVIDE SKILLED TEACHING ON TRACH COLLAR SUCTIONING PRN WITH 14 FR SUCTION CATHETER PER PATIENT TRACH CARE WITH INNER CANNULA: REMOVE INNER CANNULA, CLEANSE WITH NORMAL SALINE AND OR STERILE WATER AND REINSERT NON-DISPOSABLE CANNULA SIZE OF INNER CANNULA 5 BROOKS [code = TRACHEOSTOMY CARE MANAGEMENT; RN/INSURANCE LOSS ASSESSOR/POSTING SPECIALIST TO INSTRUCT PATIENT/CAREGIVER ON CARE AND MANAGEMENT OF TRACHEOSTOMY. RN/ INSURANCE LOSS ASSESSOR/POSTING SPECIALIST TO PROVIDE SKILLED TEACHING ON TRACH COLLAR SUCTIONING PRN WITH 14 FR SUCTION CATHETER PER PATIENT TRACH CARE WITH INNER CANNULA: REMOVE INNER CANNULA, CLEANSE WITH NORMAL SALINE AND OR STERILE WATER AND REINSERT NON-DISPOSABLE CANNULA SIZE OF INNER CANNULA 5 BROOKS] Future Scheduled Test FALL REDUC TION MANAGEMENT; RN TO ASSESS AND OBSERVE, INSURANCE LOSS ASSESSOR/POSTING SPECIALIST TO OBSERVE FALL RISK FACTORS AND EDUCATE PATIENT/CAREGIVER ON STRATEGIES TO MINIMIZE THE RISK OF FALLING. [code = FALL REDUCTION MANAGEMENT; RN TO ASSESS AND OBSERVE, INSURANCE LOSS ASSESSOR/POSTING SPECIALIST TO OBSERVE FALL RISK FACTORS AND EDUCATE PATIENT/CAREGIVER ON STRATEGIES TO MINIMIZE THE RISK OF FALLING.] Future Scheduled Test ANEMIA MAN AGEMENT; RN TO ASSESS AND TEACH, POSTING SPECIALIST/INSURANCE LOSS ASSESSOR TO OBSERVE AND TEACH AND PROVIDE EDUCATION ON ANEMIA. [code = ANEMIA MANAGEMENT; RN TO ASSESS AND TEACH, POSTING SPECIALIST/INSURANCE LOSS ASSESSOR TO OBSERVE AND TEACH AND PROVIDE EDUCATION ON ANEMIA.] Future Scheduled Test RN TO OBSE RVE, ASSESS, EVALUATE, AND DEVELOP AN INDIVIDUALIZED PLAN OF CARE. AGENCY MAY ACCEPT ORDERS FROM CONSULTING PHYSICIANS RN TO OBSERVE AND ASSESS, INSURANCE LOSS ASSESSOR/POSTING SPECIALIST TO OBSERVE FOR RISK FOR FALLS AND INSTRUCT IN FALL PREVENTION, HOME SAFETY, MEDICATION MANAGEMENT, INFECTION PREVENTION, AND NUTRITION MANAGEMENT. RN/INSURANCE LOSS ASSESSOR/POSTING SPECIALIST NURSE MAY PERFORM O2 SATURATION LEVEL ON ADMISSION AND PRN FOR RN TO ASSESS/INSURANCE LOSS ASSESSOR TO OBSERVE PATIENT, WITH NOTIFICATION TO THE PHYSICIAN IF SATURATION IS 90% IN THE ABSENCE OF MORE SPECIFIC PARAMETERS FROM THE PHYSICIAN. AGENCY MAY PERFORM A RESUMPTION OF CARE VISIT FOLLOWING ANY HOSPITAL ADMISSION. RN/INSURANCE LOSS ASSESSOR/POSTING SPECIALIST TO MONITOR CO-MORBID CONDITIONS LISTED ON THE PLAN OF CARE AND ANY NEW CONDITIONS THAT PRESENT THEMSELVES DURING THIS EPISODE TO IDENTIFY CHANGES AND INTERVENE TO MINIMIZE COMPLICATIONS. [code = RN TO OBSERVE, ASSESS, EVALUATE, AND DEVELOP AN INDIVIDUALIZED PLAN OF CARE. AGENCY MAY ACCEPT ORDERS FROM CONSULTING PHYSICIANS RN TO OBSERVE AND ASSESS, INSURANCE LOSS ASSESSOR/POSTING SPECIALIST TO OBSERVE FOR RISK FOR FALLS AND INSTRUCT IN FALL PREVENTION, HOME SAFETY, MEDICATION MANAGEMENT, INFECTION PREVENTION, AND NUTRITION MANAGEMENT. RN/INSURANCE LOSS ASSESSOR/POSTING SPECIALIST NURSE MAY PERFORM O2 SATURATION LEVEL ON ADMISSION AND PRN FOR RN TO ASSESS/INSURANCE LOSS ASSESSOR TO OBSERVE PATIENT, WITH NOTIFICATION TO THE PHYSICIAN IF SATURATION IS 90% IN THE ABSENCE OF MORE SPECIFIC PARAMETERS FROM THE PHYSICIAN. AGENCY MAY PERFORM A RESUMPTION OF CARE VISIT FOLLOWING ANY HOSPITAL ADMISSION. RN/INSURANCE LOSS ASSESSOR/POSTING SPECIALIST TO MONITOR CO-MORBID CONDITIONS LISTED ON THE PLAN OF CARE AND ANY NEW CONDITIONS THAT PRESENT THEMSELVES DURING THIS EPISODE TO IDENTIFY CHANGES AND INTERVENE TO MINIMIZE COMPLICATIONS.] Future Scheduled Test PAIN MANAG EMENT; RN TO ASSESS AND TEACH, POSTING SPECIALIST/INSURANCE LOSS ASSESSOR TO OBSERVE AND TEACH AND PROVIDE EDUCATION ON PAIN MANAGEMENT TECHNIQUES. [code = PAIN MANAGEMENT; RN TO ASSESS AND TEACH, POSTING SPECIALIST/INSURANCE LOSS ASSESSOR TO OBSERVE AND TEACH AND PROVIDE EDUCATION ON PAIN MANAGEMENT TECHNIQUES.] Future Scheduled Test RISK FOR H OSPITALIZATION; RN TO ASSESS/TEACH, POSTING SPECIALIST/INSURANCE LOSS ASSESSOR TO OBSERVE/TEACH PATIENT/CAREGIVER ON RISK FOR HOSPITALIZATION/EMERGENCY ROOM VISITS, TEACH SIGNS AND SYMPTOMS THAT PUT PATIENT AT RISK, WHEN TO NOTIFY NURSE/PHYSICIAN OF COMPLICATIONS/DECLINE, AND WHEN TO CALL 911. [code = RISK FOR HOSPITALIZATION; RN TO ASSESS/TEACH, POSTING SPECIALIST/INSURANCE LOSS ASSESSOR TO OBSERVE/TEACH PATIENT/CAREGIVER ON RISK FOR HOSPITALIZATION/EMERGENCY ROOM VISITS, TEACH SIGNS AND SYMPTOMS THAT PUT PATIENT AT RISK, WHEN TO NOTIFY NURSE/PHYSICIAN OF COMPLICATIONS/DECLINE, AND WHEN TO CALL 911.] Future Scheduled Test CARDIOVASC ULAR SYSTEM; RN TO ASSESS/TEACH, INSURANCE LOSS ASSESSOR/POSTING SPECIALIST TO OBSERVE/TEACH RELATED TO ALTERED CARDIOVASCULAR STATUS TO MINIMIZE COMPLICATIONS AND REDUCE HOSPITALIZATION. [code = CARDIOVASCULAR SYSTEM; RN TO ASSESS/TEACH, INSURANCE LOSS ASSESSOR/POSTING SPECIALIST TO OBSERVE/TEACH RELATED TO ALTERED CARDIOVASCULAR STATUS TO MINIMIZE COMPLICATIONS AND REDUCE HOSPITALIZATION.] Future Scheduled Test HYPERTENSI ON MANAGEMENT; RN TO ASSESS AND TEACH, INSURANCE LOSS ASSESSOR/POSTING SPECIALIST TO OBSERVE AND TEACH WARNING SIGNS AND SYMPTOMS TO AVOID HOSPITALIZATION. [code = HYPERTENSION MANAGEMENT; RN TO ASSESS AND TEACH, INSURANCE LOSS ASSESSOR/POSTING SPECIALIST TO OBSERVE AND TEACH WARNING SIGNS AND SYMPTOMS TO AVOID HOSPITALIZATION.] Future Scheduled Test HEART FAIL URE MONITORING RN/POSTING SPECIALIST/INSURANCE LOSS ASSESSOR TO MONITOR PATIENT FOR SIGNS AND SYMPTOMS OF HEART FAILURE EXACERBATION, MONITOR FOR ADHERENCE WITH MEDICATION AND HEART FAILURE MANAGEMENT REGIMEN. [code = HEART FAILURE MONITORING RN/POSTING SPECIALIST/INSURANCE LOSS ASSESSOR TO MONITOR PATIENT FOR SIGNS AND SYMPTOMS OF HEART FAILURE EXACERBATION, MONITOR FOR ADHERENCE WITH MEDICATION AND HEART FAILURE MANAGEMENT REGIMEN.] Future Scheduled Test DIABETES M ONITORING RN/POSTING SPECIALIST/INSURANCE LOSS ASSESSOR TO MONITOR BLOOD SUGAR LOG FOR BLOOD SUGAR READINGS THAT ARE BEING CHECKED BY PATIENT, CAREGIVER NEEDED FOR SIGNS AND SYMPTOMS OF HYPER/HYPOGLYCEMIA. PATIENT THERAPEUTIC BLOOD SUGAR PARAMETERS ARE 70 - 300. REPORT BLOOD SUGARS OUT OF RANGE TO PHYSICIAN. NURSE MAY PERFORM FINGER STICK BLOOD GLUCOSE NEEDED FOR SIGNS AND SYMPTOMS OF HYPO AND HYPERGLYCEMIA. RN/POSTING SPECIALIST/INSURANCE LOSS ASSESSOR TO MONITOR ADHERENCE OF PATIENT/CAREGIVER PERFORMING DIABETIC FOOT CARE AND MAY PERFORM DIABETIC FOOT CARE PRN. RN/POSTING SPECIALIST/INSURANCE LOSS ASSESSOR TO MONITOR FOR ADHERENCE TO DIABETIC SELF-CARE AND MANAGEMENT INCLUDING MEDICATIONS. [code = DIABETES MONITORING RN/POSTING SPECIALIST/INSURANCE LOSS ASSESSOR TO MONITOR BLOOD SUGAR LOG FOR BLOOD SUGAR READINGS THAT ARE BEING CHECKED BY PATIENT, CAREGIVER NEEDED FOR SIGNS AND SYMPTOMS OF HYPER/HYPOGLYCEMIA. PATIENT THERAPEUTIC BLOOD SUGAR PARAMETERS ARE 70 - 300. REPORT BLOOD SUGARS OUT OF RANGE TO PHYSICIAN. NURSE MAY PERFORM FINGER STICK BLOOD GLUCOSE NEEDED FOR SIGNS AND SYMPTOMS OF HYPO AND HYPERGLYCEMIA. RN/POSTING SPECIALIST/INSURANCE LOSS ASSESSOR TO MONITOR ADHERENCE OF PATIENT/CAREGIVER PERFORMING DIABETIC FOOT CARE AND MAY PERFORM DIABETIC FOOT CARE PRN. RN/POSTING SPECIALIST/INSURANCE LOSS ASSESSOR TO MONITOR FOR ADHERENCE TO DIABETIC SELF-CARE AND MANAGEMENT INCLUDING MEDICATIONS.] Future Scheduled Test HYPOTENSIO N MANAGEMENT; RN TO ASSESS AND TEACH/ INSURANCE LOSS ASSESSOR /POSTING SPECIALIST TO OBSERVE AND TEACH WARNING SIGNS AND SYMPTOMS TO AVOID HOSPITALIZATION. [code = HYPOTENSION MANAGEMENT; RN TO ASSESS AND TEACH/ INSURANCE LOSS ASSESSOR /POSTING SPECIALIST TO OBSERVE AND TEACH WARNING SIGNS AND SYMPTOMS TO AVOID HOSPITALIZATION.] Future Scheduled Test ARRHYTHMIA MANAGEMENT; RN TO ASSESS AND TEACH, INSURANCE LOSS ASSESSOR/POSTING SPECIALIST TO OBSERVE AND TEACH WARNING SIGNS AND SYMPTOMS TO AVOID HOSPITALIZATION. [code = ARRHYTHMIA MANAGEMENT; RN TO ASSESS AND TEACH, INSURANCE LOSS ASSESSOR/POSTING SPECIALIST TO OBSERVE AND TEACH WARNING SIGNS AND SYMPTOMS TO AVOID HOSPITALIZATION.] Future Scheduled Test MEDICATION MANAGEMENT; RN/INSURANCE LOSS ASSESSOR/POSTING SPECIALIST TO REVIEW MEDICATIONS FOR INTERACTIONS, EFFECTIVENESS OF DRUG THERAPY, AND SIGNS/SYMPTOMS OF ADVERSE REACTIONS. MAY INSTRUCT AND REINFORCE MEDICATION TEACHING RELATED TO THE USE OF MEDICATIONS, DOSAGE, FREQUENCY, PURPOSE, SIDE EFFECTS, AND TO REPORT COMPLICATIONS. [code = MEDICATION MANAGEMENT; RN/INSURANCE LOSS ASSESSOR/POSTING SPECIALIST TO REVIEW MEDICATIONS FOR INTERACTIONS, EFFECTIVENESS [...] EVAL UATE, OBSERVE / ASSESS, AND MONITOR, EXPRESS CLERK TO OBSERVE AND MONITOR, PROVIDE SKILLED THERAPEUTIC INTERVENTION, ACTIVITY, EDUCATION, AND TRAINING TO ADDRESS GEN. WEAKNESS, POOR OVERALL ACTIVITY TOLERANCE, AND FUNCTIONAL LIMITATIONS IMPACTING SAFETY AND INDEPENDENCE. BED MOBILITY (PT/EXPRESS CLERK) PT/EXPRESS CLERK TO PROVIDE GAIT TRAINING FOR IMPROVED MOBILITY AND /OR TO NORMALIZE GAIT PATTERN THERAPEUTIC EXERCISES AND ESTABLISHING A HOME EXERCISE PROGRAM (PT/EXPRESS CLERK) PT/EXPRESS CLERK TO PROVIDE STAIR TRAINING PT / EXPRESS CLERK TO MONITOR AND EDUCATE ON OXYGEN SATURATION DURING ADLS/IADLS, NOTIFY PHYSICIAN AND/OR THE RN CLINICAL OPTICAL EFFECTS LAYOUT PERSON FOR PHYSICIAN NOTIFICATION AND IF O2 SATS BELOW PHYSICIAN ORDERED PARAMETERS AFTER 10 MIN OF REST PT / EXPRESS CLERK TO OBSERVE FOR EARLY SIGNS AND SYMPTOMS OF DEPRESSION OR DEPRESSION GETTING WORSE AND TO EDUCATE ON HOW TO FIND HELP. PT / EXPRESS CLERK MAY EDUCATE ON PAIN MANAGEMENT CLINICALLY INDICATED, INCLUDING NON-PHARMACOLOGICAL PAIN REDUCTION TECHNIQUES PT / EXPRESS CLERK TO MONITOR FOR HYPO/HYPERGLYCEMIA AND CONDUCT ROUTINE FOOT INSPECTIONS. RECORD PATIENT REPORTED BLOOD SUGAR LEVELS AND NOTIFY PHYSICIAN AND/OR THE RN CLINICAL OPTICAL EFFECTS LAYOUT PERSON FOR PHYSICIAN NOTIFICATION IF BLOOD SUGAR LEVELS ARE OUTSIDE ORDERED PARAMETERS. TEACH PATIENT/CAREGIVER ON DAILY FOOT INSPECTIONS PT / EXPRESS CLERK TO INSTRUCT PATIENT/CAREGIVER ON RISK FOR HOSPITALIZATION/EMERGENCY ROOM VISITS, TEACH SIGNS AND SYMPTOMS THAT PUT PATIENT AT RISK, WHEN TO NOTIFY NURSE/PHYSICIAN OF COMPLICATIONS/DECLINE, AND WHEN TO CALL 911. PT/EXPRESS CLERK TO EDUCATE ON ARTHRITIS SELF-MANAGEMENT PT / EXPRESS CLERK TO EDUCATE ON HEART FAILURE SELF-MANAGEMENT PT / EXPRESS CLERK TO EDUCATE ON HYPERTENSION SELF-MANAGEMENT PT TO ASSESS / EXPRESS CLERK TO MONITOR CARDIO/RESPIRATORY SYSTEM; AND NOTIFY THE PHYSICIAN AND/OR THE RN CLINICAL OPTICAL EFFECTS LAYOUT PERSON FOR PHYSICIAN NOTIFICATION FOR EARLY SIGNS AND SYMPTOMS OF EXACERBATION OR DETERIORATION. PT / EXPRESS CLERK TO EDUCATE ON ATRIAL FIBRILLATION SELF-MANAGEMENT. PT / EXPRESS CLERK TO EDUCATE ON PNEUMONIA / ASPIRATION PNEUMONIA SELF-MANAGEMENT. PT/EXPRESS CLERK TO IDENTIFY FALL RISK FACTORS; EDUCATE THE PATIENT/CAREGIVER ON WAYS TO REDUCE FALL RISK FACTORS AND ESTABLISH HOME EXERCISE PROGRAM TO MINIMIZE FALL RISK. MAY TEACH THE PATIENT FLOOR RECOVERY WHEN CLINICALLY APPROPRIATE [code = PT TO EVALUATE, OBSERVE / ASSESS, AND MONITOR, EXPRESS CLERK TO OBSERVE AND MONITOR, PROVIDE SKILLED THERAPEUTIC INTERVENTION, ACTIVITY, EDUCATION, AND TRAINING TO ADDRESS GEN. WEAKNESS, POOR OVERALL ACTIVITY TOLERANCE, AND FUNCTIONAL LIMITATIONS IMPACTING SAFETY AND INDEPENDENCE. BED MOBILITY (PT/EXPRESS CLERK) PT/EXPRESS CLERK TO PROVIDE GAIT TRAINING FOR IMPROVED MOBILITY AND /OR TO NORMALIZE GAIT PATTERN THERAPEUTIC EXERCISES AND ESTABLISHING A HOME EXERCISE PROGRAM (PT/EXPRESS CLERK) PT/EXPRESS CLERK TO PROVIDE STAIR TRAINING PT / EXPRESS CLERK TO MONITOR AND EDUCATE ON OXYGEN SATURATION DURING ADLS/IADLS, NOTIFY PHYSICIAN AND/OR THE RN CLINICAL OPTICAL EFFECTS LAYOUT PERSON FOR PHYSICIAN NOTIFICATION AND IF O2 SATS BELOW PHYSICIAN ORDERED PARAMETERS AFTER 10 MIN OF REST PT / EXPRESS CLERK TO OBSERVE FOR EARLY SIGNS AND SYMPTOMS OF DEPRESSION OR DEPRESSION GETTING WORSE AND TO EDUCATE ON HOW TO FIND HELP. PT / EXPRESS CLERK MAY EDUCATE ON PAIN MANAGEMENT CLINICALLY INDICATED, INCLUDING NON-PHARMACOLOGICAL PAIN REDUCTION TECHNIQUES PT / EXPRESS CLERK TO MONITOR FOR HYPO/HYPERGLYCEMIA AND CONDUCT ROUTINE FOOT INSPECTIONS. RECORD PATIENT REPORTED BLOOD SUGAR LEVELS AND NOTIFY PHYSICIAN AND/OR THE RN CLINICAL OPTICAL EFFECTS LAYOUT PERSON FOR PHYSICIAN NOTIFICATION IF BLOOD SUGAR LEVELS ARE OUTSIDE ORDERED PARAMETERS. TEACH PATIENT/CAREGIVER ON DAILY FOOT INSPECTIONS PT / EXPRESS CLERK TO INSTRUCT PATIENT/CAREGIVER ON RISK FOR HOSPITALIZATION/EMERGENCY ROOM VISITS, TEACH SIGNS AND SYMPTOMS THAT PUT PATIENT AT RISK, WHEN TO NOTIFY NURSE/PHYSICIAN OF COMPLICATIONS/DECLINE, AND WHEN TO CALL 911. PT/EXPRESS CLERK TO EDUCATE ON ARTHRITIS SELF-MANAGEMENT PT / EXPRESS CLERK TO EDUCATE ON HEART FAILURE SELF-MANAGEMENT PT / EXPRESS CLERK TO EDUCATE ON HYPERTENSION SELF-MANAGEMENT PT TO ASSESS / EXPRESS CLERK TO MONITOR CARDIO/RESPIRATORY SYSTEM; AND NOTIFY THE PHYSICIAN AND/OR THE RN CLINICAL OPTICAL EFFECTS LAYOUT PERSON FOR PHYSICIAN NOTIFICATION FOR EARLY SIGNS AND SYMPTOMS OF EXACERBATION OR DETERIORATION. PT / EXPRESS CLERK TO EDUCATE ON ATRIAL FIBRILLATION SELF-MANAGEMENT. PT / EXPRESS CLERK TO EDUCATE ON PNEUMONIA / ASPIRATION PNEUMONIA SELF-MANAGEMENT. PT/EXPRESS CLERK TO IDENTIFY FALL RISK FACTORS; EDUCATE THE PATIENT/CAREGIVER ON WAYS TO REDUCE FALL RISK FACTORS AND ESTABLISH HOME EXERCISE PROGRAM TO MINIMIZE FALL RISK. MAY TEACH THE PATIENT FLOOR RECOVERY WHEN CLINICALLY APPROPRIATE] Future Scheduled Test AGENCY MAY PERFORM A RESUMPTION OF CARE VISIT FOLLOWING ANY HOSPITAL ADMISSION. OT TO EVALUATE, OBSERVE / ASSESS, AND MONITOR, INSPECTOR PLATING TO OBSERVE AND MONITOR, PROVIDE SKILLED THERAPEUTIC INTERVENTION, ACTIVITY, EDUCATION, AND TRAINING TO ADDRESS SAFETY AND INDEPENDENCE OF ADLS AND FUNCTIONAL TRANSFERS IN HOME ENVIRONMENT. ACTIVITIES OF DAILY LIVING (OT/MARIANNE) THERAPEUTIC EXERCISE (OT/INSPECTOR PLATING) ENERGY CONSERVATION/ACTIVITY DEMAND (OT/INSPECTOR PLATING) OT/INSPECTOR PLATING TO MONITOR AND EDUCATE ON OXYGEN SATURATION DURING ADLS/IADLS, NOTIFY PHYSICIAN AND/OR THE RN CLINICAL OPTICAL EFFECTS LAYOUT PERSON FOR PHYSICIAN NOTIFICATION AND IF O2 SATS BELOW 90% AFTER 10 MIN OF REST. OT / INSPECTOR PLATING TO IDENTIFY FALL RISK FACTORS; EDUCATE THE PATIENT/CAREGIVER ON WAYS TO REDUCE FALL RISK FACTORS AND ESTABLISH HOME EXERCISE PROGRAM TO MINIMIZE FALL RISK. MAY TEACH THE PATIENT FLOOR RECOVERY WHEN CLINICALLY APPROPRIATE. OT/INSPECTOR PLATING TO EDUCATE ON HYPERTENSION SELF-MANAGEMENT OT/MARIANNE TO EDUCATE ON ATRIAL FIBRILLATION SELF-MANAGEMENT. [code = AGENCY MAY PERFORM A RESUMPTION OF CARE VISIT FOLLOWING ANY HOSPITAL ADMISSION. OT TO EVALUATE, OBSERVE / ASSESS, AND MONITOR, INSPECTOR PLATING TO OBSERVE AND MONITOR, PROVIDE SKILLED THERAPEUTIC INTERVENTION, ACTIVITY, EDUCATION, AND TRAINING TO ADDRESS SAFETY AND INDEPENDENCE OF ADLS AND FUNCTIONAL TRANSFERS IN HOME ENVIRONMENT. ACTIVITIES OF DAILY LIVING (OT/MARIANNE) THERAPEUTIC EXERCISE (OT/INSPECTOR PLATING) ENERGY CONSERVATION/ACTIVITY DEMAND (OT/MARIANNE) OT/INSPECTOR PLATING TO MONITOR AND EDUCATE ON OXYGEN SATURATION DURING ADLS/IADLS, NOTIFY PHYSICIAN AND/OR THE RN CLINICAL OPTICAL EFFECTS LAYOUT PERSON FOR PHYSICIAN NOTIFICATION AND IF O2 SATS BELOW 90% AFTER 10 MIN OF REST. OT / MARIANNE TO IDENTIFY FALL RISK FACTORS; EDUCATE THE PATIENT/CAREGIVER ON WAYS TO REDUCE FALL RISK FACTORS AND ESTABLISH HOME EXERCISE PROGRAM TO MINIMIZE FALL RISK. MAY TEACH THE PATIENT FLOOR RECOVERY WHEN CLINICALLY APPROPRIATE. OT/INSPECTOR PLATING TO EDUCATE ON HYPERTENSION SELF-MANAGEMENT OT/MARIANNE TO [...] NEW ADMISSION [facility] [id number]
--- OUTSIDE RECORDS SUMMARY | 2025-04-06 18:00 | XMS_ITS | Clinical Summary ---
Author Organization Unknown Care Team Providers Care Sealing Machine Operator Name Role Phone DIGNA ARIEL, ESTRELLA Unavailable Unava dinora STOKES RN, FRANKIE Unavailable Unavailabl e KARI PT, DIDI Unavailable Unavailable NAT DRAWER IN [place]BBY LOOM, GAUDENCIO Unavailable Unavailabl e RADHA OT, ROLANDO Unavailable Unavailable JOANNE STEVEN, HATTIE Unavailable Unavailable Payers Payer Name Policy Type Policy Number Effective Date Expira tion Date MEDICARE.[facility] [id number] Problems Condition Name Condition Details Condition Category Status Onset Date Resolution Date Last Treatment Date Treating Clinician Comments 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 02-07 [...] OF PNEUMONIA (RECURRENT) Active 02-07 00:00: 00 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 OF SYSTEMIC STEROIDS Active [...] 80 mg tablet 02-07 00:00: 00 Yes [id number] CHOLESTEROL 1 tablet DAILY 1 tablet DAILY (route: oral) Med Classific ation: Cardiovas cular Therapy Agents digoxin 125 mcg (0.125 mg) tablet 02-07 00:00: 00 02-21 23:59 :00 No [id number] HEART RHYTHM 1 tablet DAILY 1 tablet DAILY (route: oral) Med Classific ation: Cardiovas cular Therapy Agents escitalopra m 10 mg tablet 02-07 00:00: 00 Yes [id number] MOOD 1 tablet DAILY 1 tablet DAILY (route: oral) Med Classific ation: Central Nervous System Agents ezetimibe 10 mg tablet 02-07 00:00: 00 Yes [id number] CHOLESTEROL 1 tablet DAILY 1 tablet DAILY (route: oral) Med Classific ation: Cardiovas cular Therapy Agents metoprolol succinate ER 25 mg tablet,exte nded release 24 hr 02-07 00:00: 00 02-21 23:59 :00 No [id number] BLOOD PRESSURE 0.5 tablet DAILY 0.5 tablet DAILY (route: oral) Med Classific ation: Cardiovas cular Therapy Agents pantoprazol e 40 mg tablet,joão yed release 02-07 00:00: 00 02-21 23:59 :00 No [id number] STOMACH ACID 1 tablet DAILY 1 tablet DAILY (route: oral) Med Classific ation: Gastroint estinal Therapy Agents prednisone 5 mg tablet 02-07 00:00: 00 Yes [id number] ADRENAL INSUFFICIEN CY 1 tablet DAILY 1 tablet DAILY (route: oral) Med Classific ation: Endocrine spironolact one 25 mg tablet 02-07 00:00: 00 Yes [id number] FLUID RETENTION 0.5 tablet DAILY 0.5 tablet DAILY (route: oral) Med Classific ation: Cardiovas cular Therapy Agents tamsulosin 0.4 mg capsule 02-07 00:00: 00 02-21 23:59 :00 No [id number] URINARY HEALTH 1 capsule DAILY 1 capsule DAILY (route: oral) Med Classific ation: Genitouri nary Therapy acetaminoph en 325 mg tablet 2024-05 00:00: 00 Yes [id number] PAIN 2 tablet 2 TIMES DAILY 2 tablet 2 TIMES DAILY (route: oral) Med Classific ation: Analgesic , Anti-infl ammatory or Antipyret ic aspirin 81 mg tablet 2024-05 00:00: 00 Yes [id number] ANTICOAGULA NT 1 tablet DAILY 1 tablet DAILY (route: oral) Med Classific ation: Hematolog ical Agents ipratropium 0.5 mg-albutero l 3 mg (2.5 mg base)/3 mL nebulizatio n soln 2024-05 00:00: 00 Yes [id number] COPD 3 mL EVERY 6 HOURS 3 mL EVERY 6 HOURS (route: inhalation ) Med Classific ation: Respirato ry Therapy Agents Lanoxin 62.5 mcg (0.0625 mg) tablet 2024-05 00:00: 00 Yes [id number] CHF 1 tablet DAILY 1 tablet DAILY (route: oral) Med Classific ation: Cardiovas cular Therapy Agents Lasix 20 mg tablet 2024-05 00:00: 00 Yes [id number] CHF 1 tablet DAILY 1 tablet DAILY (route: oral) Med Classific ation: Cardiovas cular Therapy Agents Toprol XL 25 mg tablet,exte nded release 2024-05 00:00: 00 Yes [id number] BP 25 mg DAILY 25 mg DAILY [...] SYSTEM MANAGEMENT; RN TO ASSESS AND TEACH, DETECTIVE YOUTH BUREAU/THREAD CUTTER TENDER TO OBSERVE AND TEACH RELATED TO ALTERED RESPIRATORY STATUS TO MINIMIZE COMPLICATIONS AND REDUCE HOSPITALIZATION. [code = SN 1WK9 PT 1WK1 OT EFFECTIVE 02/10/2025K1 RESPIRATORY SYSTEM MANAGEMENT; RN TO ASSESS AND TEACH, DETECTIVE YOUTH BUREAU/THREAD CUTTER TENDER TO OBSERVE AND TEACH RELATED TO ALTERED RESPIRATORY STATUS TO MINIMIZE COMPLICATIONS AND REDUCE HOSPITALIZATION.] Future Scheduled Test TRACHEOSTO MY CARE MANAGEMENT; RN/DETECTIVE YOUTH BUREAU/THREAD CUTTER TENDER TO INSTRUCT PATIENT/CAREGIVER ON CARE AND MANAGEMENT OF TRACHEOSTOMY. RN/ DETECTIVE YOUTH BUREAU/THREAD CUTTER TENDER TO PROVIDE SKILLED TEACHING ON TRACH COLLAR SUCTIONING PRN WITH 14 FR SUCTION CATHETER PER PATIENT TRACH CARE WITH INNER CANNULA: REMOVE INNER CANNULA, CLEANSE WITH NORMAL SALINE AND OR STERILE WATER AND REINSERT NON-DISPOSABLE CANNULA SIZE OF INNER CANNULA 5 BROOKS [code = TRACHEOSTOMY CARE MANAGEMENT; RN/DETECTIVE YOUTH BUREAU/THREAD CUTTER TENDER TO INSTRUCT PATIENT/CAREGIVER ON CARE AND MANAGEMENT OF TRACHEOSTOMY. RN/ DETECTIVE YOUTH BUREAU/THREAD CUTTER TENDER TO PROVIDE SKILLED TEACHING ON TRACH COLLAR SUCTIONING PRN WITH 14 FR SUCTION CATHETER PER PATIENT TRACH CARE WITH INNER CANNULA: REMOVE INNER CANNULA, CLEANSE WITH NORMAL SALINE AND OR STERILE WATER AND REINSERT NON-DISPOSABLE CANNULA SIZE OF INNER CANNULA 5 BROOKS] Future Scheduled Test FALL REDUC TION MANAGEMENT; RN TO ASSESS AND OBSERVE, DETECTIVE YOUTH BUREAU/THREAD CUTTER TENDER TO OBSERVE FALL RISK FACTORS AND EDUCATE PATIENT/CAREGIVER ON STRATEGIES TO MINIMIZE THE RISK OF FALLING. [code = FALL REDUCTION MANAGEMENT; RN TO ASSESS AND OBSERVE, DETECTIVE YOUTH BUREAU/THREAD CUTTER TENDER TO OBSERVE FALL RISK FACTORS AND EDUCATE PATIENT/CAREGIVER ON STRATEGIES TO MINIMIZE THE RISK OF FALLING.] Future Scheduled Test ANEMIA MAN AGEMENT; RN TO ASSESS AND TEACH, THREAD CUTTER TENDER/DETECTIVE YOUTH BUREAU TO OBSERVE AND TEACH AND PROVIDE EDUCATION ON ANEMIA. [code = ANEMIA MANAGEMENT; RN TO ASSESS AND TEACH, THREAD CUTTER TENDER/DETECTIVE YOUTH BUREAU TO OBSERVE AND TEACH AND PROVIDE EDUCATION ON ANEMIA.] Future Scheduled Test RN TO OBSE RVE, ASSESS, EVALUATE, AND DEVELOP AN INDIVIDUALIZED PLAN OF CARE. AGENCY MAY ACCEPT ORDERS FROM CONSULTING PHYSICIANS RN TO OBSERVE AND ASSESS, DETECTIVE YOUTH BUREAU/THREAD CUTTER TENDER TO OBSERVE FOR RISK FOR FALLS AND INSTRUCT IN FALL PREVENTION, HOME SAFETY, MEDICATION MANAGEMENT, INFECTION PREVENTION, AND NUTRITION MANAGEMENT. RN/DETECTIVE YOUTH BUREAU/THREAD CUTTER TENDER NURSE MAY PERFORM O2 SATURATION LEVEL ON ADMISSION AND PRN FOR RN TO ASSESS/DETECTIVE YOUTH BUREAU TO OBSERVE PATIENT, WITH NOTIFICATION TO THE PHYSICIAN IF SATURATION IS 90% IN THE ABSENCE OF MORE SPECIFIC PARAMETERS FROM THE PHYSICIAN. AGENCY MAY PERFORM A RESUMPTION OF CARE VISIT FOLLOWING ANY HOSPITAL ADMISSION. RN/DETECTIVE YOUTH BUREAU/THREAD CUTTER TENDER TO MONITOR CO-MORBID CONDITIONS LISTED ON THE PLAN OF CARE AND ANY NEW CONDITIONS THAT PRESENT THEMSELVES DURING THIS EPISODE TO IDENTIFY CHANGES AND INTERVENE TO MINIMIZE COMPLICATIONS. [code = RN TO OBSERVE, ASSESS, EVALUATE, AND DEVELOP AN INDIVIDUALIZED PLAN OF CARE. AGENCY MAY ACCEPT ORDERS FROM CONSULTING PHYSICIANS RN TO OBSERVE AND ASSESS, DETECTIVE YOUTH BUREAU/THREAD CUTTER TENDER TO OBSERVE FOR RISK FOR FALLS AND INSTRUCT IN FALL PREVENTION, HOME SAFETY, MEDICATION MANAGEMENT, INFECTION PREVENTION, AND NUTRITION MANAGEMENT. RN/DETECTIVE YOUTH BUREAU/THREAD CUTTER TENDER NURSE MAY PERFORM O2 SATURATION LEVEL ON ADMISSION AND PRN FOR RN TO ASSESS/DETECTIVE YOUTH BUREAU TO OBSERVE PATIENT, WITH NOTIFICATION TO THE PHYSICIAN IF SATURATION IS 90% IN THE ABSENCE OF MORE SPECIFIC PARAMETERS FROM THE PHYSICIAN. AGENCY MAY PERFORM A RESUMPTION OF CARE VISIT FOLLOWING ANY HOSPITAL ADMISSION. RN/DETECTIVE YOUTH BUREAU/THREAD CUTTER TENDER TO MONITOR CO-MORBID CONDITIONS LISTED ON THE PLAN OF CARE AND ANY NEW CONDITIONS THAT PRESENT THEMSELVES DURING THIS EPISODE TO IDENTIFY CHANGES AND INTERVENE TO MINIMIZE COMPLICATIONS.] Future Scheduled Test PAIN MANAG EMENT; RN TO ASSESS AND TEACH, THREAD CUTTER TENDER/DETECTIVE YOUTH BUREAU TO OBSERVE AND TEACH AND PROVIDE EDUCATION ON PAIN MANAGEMENT TECHNIQUES. [code = PAIN MANAGEMENT; RN TO ASSESS AND TEACH, THREAD CUTTER TENDER/DETECTIVE YOUTH BUREAU TO OBSERVE AND TEACH AND PROVIDE EDUCATION ON PAIN MANAGEMENT TECHNIQUES.] Future Scheduled Test RISK FOR H OSPITALIZATION; RN TO ASSESS/TEACH, THREAD CUTTER TENDER/DETECTIVE YOUTH BUREAU TO OBSERVE/TEACH PATIENT/CAREGIVER ON RISK FOR HOSPITALIZATION/EMERGENCY ROOM VISITS, TEACH SIGNS AND SYMPTOMS THAT PUT PATIENT AT RISK, WHEN TO NOTIFY NURSE/PHYSICIAN OF COMPLICATIONS/DECLINE, AND WHEN TO CALL 911. [code = RISK FOR HOSPITALIZATION; RN TO ASSESS/TEACH, THREAD CUTTER TENDER/DETECTIVE YOUTH BUREAU TO OBSERVE/TEACH PATIENT/CAREGIVER ON RISK FOR HOSPITALIZATION/EMERGENCY ROOM VISITS, TEACH SIGNS AND SYMPTOMS THAT PUT PATIENT AT RISK, WHEN TO NOTIFY NURSE/PHYSICIAN OF COMPLICATIONS/DECLINE, AND WHEN TO CALL 911.] Future Scheduled Test CARDIOVASC ULAR SYSTEM; RN TO ASSESS/TEACH, DETECTIVE YOUTH BUREAU/THREAD CUTTER TENDER TO OBSERVE/TEACH RELATED TO ALTERED CARDIOVASCULAR STATUS TO MINIMIZE COMPLICATIONS AND REDUCE HOSPITALIZATION. [code = CARDIOVASCULAR SYSTEM; RN TO ASSESS/TEACH, DETECTIVE YOUTH BUREAU/THREAD CUTTER TENDER TO OBSERVE/TEACH RELATED TO ALTERED CARDIOVASCULAR STATUS TO MINIMIZE COMPLICATIONS AND REDUCE HOSPITALIZATION.] Future Scheduled Test HYPERTENSI ON MANAGEMENT; RN TO ASSESS AND TEACH, DETECTIVE YOUTH BUREAU/THREAD CUTTER TENDER TO OBSERVE AND TEACH WARNING SIGNS AND SYMPTOMS TO AVOID HOSPITALIZATION. [code = HYPERTENSION MANAGEMENT; RN TO ASSESS AND TEACH, DETECTIVE YOUTH BUREAU/THREAD CUTTER TENDER TO OBSERVE AND TEACH WARNING SIGNS AND SYMPTOMS TO AVOID HOSPITALIZATION.] Future Scheduled Test HEART FAIL URE MONITORING RN/THREAD CUTTER TENDER/DETECTIVE YOUTH BUREAU TO MONITOR PATIENT FOR SIGNS AND SYMPTOMS OF HEART FAILURE EXACERBATION, MONITOR FOR ADHERENCE WITH MEDICATION AND HEART FAILURE MANAGEMENT REGIMEN. [code = HEART FAILURE MONITORING RN/THREAD CUTTER TENDER/DETECTIVE YOUTH BUREAU TO MONITOR PATIENT FOR SIGNS AND SYMPTOMS OF HEART FAILURE EXACERBATION, MONITOR FOR ADHERENCE WITH MEDICATION AND HEART FAILURE MANAGEMENT REGIMEN.] Future Scheduled Test DIABETES M ONITORING RN/THREAD CUTTER TENDER/DETECTIVE YOUTH BUREAU TO MONITOR BLOOD SUGAR LOG FOR BLOOD SUGAR READINGS THAT ARE BEING CHECKED BY PATIENT, CAREGIVER NEEDED FOR SIGNS AND SYMPTOMS OF HYPER/HYPOGLYCEMIA. PATIENT THERAPEUTIC BLOOD SUGAR PARAMETERS ARE 70 - 300. REPORT BLOOD SUGARS OUT OF RANGE TO PHYSICIAN. NURSE MAY PERFORM FINGER STICK BLOOD GLUCOSE NEEDED FOR SIGNS AND SYMPTOMS OF HYPO AND HYPERGLYCEMIA. RN/THREAD CUTTER TENDER/DETECTIVE YOUTH BUREAU TO MONITOR ADHERENCE OF PATIENT/CAREGIVER PERFORMING DIABETIC FOOT CARE AND MAY PERFORM DIABETIC FOOT CARE PRN. RN/THREAD CUTTER TENDER/DETECTIVE YOUTH BUREAU TO MONITOR FOR ADHERENCE TO DIABETIC SELF-CARE AND MANAGEMENT INCLUDING MEDICATIONS. [code = DIABETES MONITORING RN/THREAD CUTTER TENDER/DETECTIVE YOUTH BUREAU TO MONITOR BLOOD SUGAR LOG FOR BLOOD SUGAR READINGS THAT ARE BEING CHECKED BY PATIENT, CAREGIVER NEEDED FOR SIGNS AND SYMPTOMS OF HYPER/HYPOGLYCEMIA. PATIENT THERAPEUTIC BLOOD SUGAR PARAMETERS ARE 70 - 300. REPORT BLOOD SUGARS OUT OF RANGE TO PHYSICIAN. NURSE MAY PERFORM FINGER STICK BLOOD GLUCOSE NEEDED FOR SIGNS AND SYMPTOMS OF HYPO AND HYPERGLYCEMIA. RN/THREAD CUTTER TENDER/DETECTIVE YOUTH BUREAU TO MONITOR ADHERENCE OF PATIENT/CAREGIVER PERFORMING DIABETIC FOOT CARE AND MAY PERFORM DIABETIC FOOT CARE PRN. RN/THREAD CUTTER TENDER/DETECTIVE YOUTH BUREAU TO MONITOR FOR ADHERENCE TO DIABETIC SELF-CARE AND MANAGEMENT INCLUDING MEDICATIONS.] Future Scheduled Test HYPOTENSIO N MANAGEMENT; RN TO ASSESS AND TEACH/ DETECTIVE YOUTH BUREAU /THREAD CUTTER TENDER TO OBSERVE AND TEACH WARNING SIGNS AND SYMPTOMS TO AVOID HOSPITALIZATION. [code = HYPOTENSION MANAGEMENT; RN TO ASSESS AND TEACH/ DETECTIVE YOUTH BUREAU /THREAD CUTTER TENDER TO OBSERVE AND TEACH WARNING SIGNS AND SYMPTOMS TO AVOID HOSPITALIZATION.] Future Scheduled Test ARRHYTHMIA MANAGEMENT; RN TO ASSESS AND TEACH, DETECTIVE YOUTH BUREAU/THREAD CUTTER TENDER TO OBSERVE AND TEACH WARNING SIGNS AND SYMPTOMS TO AVOID HOSPITALIZATION. [code = ARRHYTHMIA MANAGEMENT; RN TO ASSESS AND TEACH, DETECTIVE YOUTH BUREAU/THREAD CUTTER TENDER TO OBSERVE AND TEACH WARNING SIGNS AND SYMPTOMS TO AVOID HOSPITALIZATION.] Future Scheduled Test MEDICATION MANAGEMENT; RN/DETECTIVE YOUTH BUREAU/THREAD CUTTER TENDER TO REVIEW MEDICATIONS FOR INTERACTIONS, EFFECTIVENESS OF DRUG THERAPY, AND SIGNS/SYMPTOMS OF ADVERSE REACTIONS. MAY INSTRUCT AND REINFORCE MEDICATION TEACHING RELATED TO THE USE OF MEDICATIONS, DOSAGE, FREQUENCY, PURPOSE, SIDE EFFECTS, AND TO REPORT COMPLICATIONS. [code = MEDICATION MANAGEMENT; RN/DETECTIVE YOUTH BUREAU/THREAD CUTTER TENDER TO REVIEW MEDICATIONS FOR INTERACTIONS, EFFECTIVENESS [...] EVAL UATE, OBSERVE / ASSESS, AND MONITOR, DRAWER IN [place]Y LOOM TO OBSERVE AND MONITOR, PROVIDE SKILLED THERAPEUTIC INTERVENTION, ACTIVITY, EDUCATION, AND TRAINING TO ADDRESS GEN. WEAKNESS, POOR OVERALL ACTIVITY TOLERANCE, AND FUNCTIONAL LIMITATIONS IMPACTING SAFETY AND INDEPENDENCE. BED MOBILITY (PT/DRAWER IN [place]) PT/DRAWER IN [place] TO PROVIDE GAIT TRAINING FOR IMPROVED MOBILITY AND /OR TO NORMALIZE GAIT PATTERN THERAPEUTIC EXERCISES AND ESTABLISHING A HOME EXERCISE PROGRAM (PT/DRAWER IN [place]OM) PT/DRAWER IN [place] TO PROVIDE STAIR TRAINING PT / DRAWER IN [place] TO MONITOR AND EDUCATE ON OXYGEN SATURATION DURING ADLS/IADLS, NOTIFY PHYSICIAN AND/OR THE RN CLINICAL BID MANAGER FOR PHYSICIAN NOTIFICATION AND IF O2 SATS BELOW PHYSICIAN ORDERED PARAMETERS AFTER 10 MIN OF REST PT / DRAWER IN [place] TO OBSERVE FOR EARLY SIGNS AND SYMPTOMS OF DEPRESSION OR DEPRESSION GETTING WORSE AND TO EDUCATE ON HOW TO FIND HELP. PT / DRAWER IN [place] MAY EDUCATE ON PAIN MANAGEMENT CLINICALLY INDICATED, INCLUDING NON-PHARMACOLOGICAL PAIN REDUCTION TECHNIQUES PT / DRAWER IN [place] TO MONITOR FOR HYPO/HYPERGLYCEMIA AND CONDUCT ROUTINE FOOT INSPECTIONS. RECORD PATIENT REPORTED BLOOD SUGAR LEVELS AND NOTIFY PHYSICIAN AND/OR THE RN CLINICAL BID MANAGER FOR PHYSICIAN NOTIFICATION IF BLOOD SUGAR LEVELS ARE OUTSIDE ORDERED PARAMETERS. TEACH PATIENT/CAREGIVER ON DAILY FOOT INSPECTIONS PT / DRAWER IN [place] TO INSTRUCT PATIENT/CAREGIVER ON RISK FOR HOSPITALIZATION/EMERGENCY ROOM VISITS, TEACH SIGNS AND SYMPTOMS THAT PUT PATIENT AT RISK, WHEN TO NOTIFY NURSE/PHYSICIAN OF COMPLICATIONS/DECLINE, AND WHEN TO CALL 911. PT/DRAWER IN [place] TO EDUCATE ON ARTHRITIS SELF-MANAGEMENT PT / DRAWER IN [place] TO EDUCATE ON HEART FAILURE SELF-MANAGEMENT PT / DRAWER IN [place] TO EDUCATE ON HYPERTENSION SELF-MANAGEMENT PT TO ASSESS / DRAWER IN [place] TO MONITOR CARDIO/RESPIRATORY SYSTEM; AND NOTIFY THE PHYSICIAN AND/OR THE RN CLINICAL BID MANAGER FOR PHYSICIAN NOTIFICATION FOR EARLY SIGNS AND SYMPTOMS OF EXACERBATION OR DETERIORATION. PT / DRAWER IN [place] TO EDUCATE ON ATRIAL FIBRILLATION SELF-MANAGEMENT. PT / DRAWER IN [place] TO EDUCATE ON PNEUMONIA / ASPIRATION PNEUMONIA SELF-MANAGEMENT. PT/DRAWER IN [place] TO IDENTIFY FALL RISK FACTORS; EDUCATE THE PATIENT/CAREGIVER ON WAYS TO REDUCE FALL RISK FACTORS AND ESTABLISH HOME EXERCISE PROGRAM TO MINIMIZE FALL RISK. MAY TEACH THE PATIENT FLOOR RECOVERY WHEN CLINICALLY APPROPRIATE [code = PT TO EVALUATE, OBSERVE / ASSESS, AND MONITOR, DRAWER IN [place] TO OBSERVE AND MONITOR, PROVIDE SKILLED THERAPEUTIC INTERVENTION, ACTIVITY, EDUCATION, AND TRAINING TO ADDRESS GEN. WEAKNESS, POOR OVERALL ACTIVITY TOLERANCE, AND FUNCTIONAL LIMITATIONS IMPACTING SAFETY AND INDEPENDENCE. BED MOBILITY (PT/DRAWER IN DOBBY LOOM) PT/DRAWER IN [place] TO PROVIDE GAIT TRAINING FOR IMPROVED MOBILITY AND /OR TO NORMALIZE GAIT PATTERN THERAPEUTIC EXERCISES AND ESTABLISHING A HOME EXERCISE PROGRAM (PT/DRAWER IN DOBBY LOOM) PT/DRAWER IN [place] TO PROVIDE STAIR TRAINING PT / DRAWER IN [place] TO MONITOR AND EDUCATE ON OXYGEN SATURATION DURING ADLS/IADLS, NOTIFY PHYSICIAN AND/OR THE RN CLINICAL BID MANAGER FOR PHYSICIAN NOTIFICATION AND IF O2 SATS BELOW PHYSICIAN ORDERED PARAMETERS AFTER 10 MIN OF REST PT / DRAWER IN [place] TO OBSERVE FOR EARLY SIGNS AND SYMPTOMS OF DEPRESSION OR DEPRESSION GETTING WORSE AND TO EDUCATE ON HOW TO FIND HELP. PT / DRAWER IN [place] LO[place] MAY EDUCATE ON PAIN MANAGEMENT CLINICALLY INDICATED, INCLUDING NON-PHARMACOLOGICAL PAIN REDUCTION TECHNIQUES PT / DRAWER IN [place] TO MONITOR FOR HYPO/HYPERGLYCEMIA AND CONDUCT ROUTINE FOOT INSPECTIONS. RECORD PATIENT REPORTED BLOOD SUGAR LEVELS AND NOTIFY PHYSICIAN AND/OR THE RN CLINICAL BID MANAGER FOR PHYSICIAN NOTIFICATION IF BLOOD SUGAR LEVELS ARE OUTSIDE ORDERED PARAMETERS. TEACH PATIENT/CAREGIVER ON DAILY FOOT INSPECTIONS PT / DRAWER IN [place] LO[place] TO INSTRUCT PATIENT/CAREGIVER ON RISK FOR HOSPITALIZATION/EMERGENCY ROOM VISITS, TEACH SIGNS AND SYMPTOMS THAT PUT PATIENT AT RISK, WHEN TO NOTIFY NURSE/PHYSICIAN OF COMPLICATIONS/DECLINE, AND WHEN TO CALL 911. PT/DRAWER IN [place]BBY LOOM TO EDUCATE ON ARTHRITIS SELF-MANAGEMENT PT / DRAWER IN [place] TO EDUCATE ON HEART FAILURE SELF-MANAGEMENT PT / DRAWER IN [place] TO EDUCATE ON HYPERTENSION SELF-MANAGEMENT PT TO ASSESS / DRAWER IN [place] TO MONITOR CARDIO/RESPIRATORY SYSTEM; AND NOTIFY THE PHYSICIAN AND/OR THE RN CLINICAL BID MANAGER FOR PHYSICIAN NOTIFICATION FOR EARLY SIGNS AND SYMPTOMS OF EXACERBATION OR DETERIORATION. PT / DRAWER IN [place]Y LO[place] TO EDUCATE ON ATRIAL FIBRILLATION SELF-MANAGEMENT. PT / DRAWER IN [place]Y LOOM TO EDUCATE ON PNEUMONIA / ASPIRATION PNEUMONIA SELF-MANAGEMENT. PT/DRAWER IN DOBBY LOOM TO IDENTIFY FALL RISK FACTORS; EDUCATE THE PATIENT/CAREGIVER ON WAYS TO REDUCE FALL RISK FACTORS AND ESTABLISH HOME EXERCISE PROGRAM TO MINIMIZE FALL RISK. MAY TEACH THE PATIENT FLOOR RECOVERY WHEN CLINICALLY APPROPRIATE] Future Scheduled Test AGENCY MAY PERFORM A RESUMPTION OF CARE VISIT FOLLOWING ANY HOSPITAL ADMISSION. OT TO EVALUATE, OBSERVE / ASSESS, AND MONITOR, SAMPLER PICKUP TO OBSERVE AND MONITOR, PROVIDE SKILLED THERAPEUTIC INTERVENTION, ACTIVITY, EDUCATION, AND TRAINING TO ADDRESS SAFETY AND INDEPENDENCE OF ADLS AND FUNCTIONAL TRANSFERS IN HOME ENVIRONMENT. ACTIVITIES OF DAILY LIVING (OT/MARIANNE) THERAPEUTIC EXERCISE (OT/SAMPLER PICKUP) ENERGY CONSERVATION/ACTIVITY DEMAND (OT/SAMPLER PICKUP) OT/SAMPLER PICKUP TO MONITOR AND EDUCATE ON OXYGEN SATURATION DURING ADLS/IADLS, NOTIFY PHYSICIAN AND/OR THE RN CLINICAL BID MANAGER FOR PHYSICIAN NOTIFICATION AND IF O2 SATS BELOW 90% AFTER 10 MIN OF REST. OT / SAMPLER PICKUP TO IDENTIFY FALL RISK FACTORS; EDUCATE THE PATIENT/CAREGIVER ON WAYS TO REDUCE FALL RISK FACTORS AND ESTABLISH HOME EXERCISE PROGRAM TO MINIMIZE FALL RISK. MAY TEACH THE PATIENT FLOOR RECOVERY WHEN CLINICALLY APPROPRIATE. OT/SAMPLER PICKUP TO EDUCATE ON HYPERTENSION SELF-MANAGEMENT OT/MARIANNE TO EDUCATE ON ATRIAL FIBRILLATION SELF-MANAGEMENT. [code = AGENCY MAY PERFORM A RESUMPTION OF CARE VISIT FOLLOWING ANY HOSPITAL ADMISSION. OT TO EVALUATE, OBSERVE / ASSESS, AND MONITOR, SAMPLER PICKUP TO OBSERVE AND MONITOR, PROVIDE SKILLED THERAPEUTIC INTERVENTION, ACTIVITY, EDUCATION, AND TRAINING TO ADDRESS SAFETY AND INDEPENDENCE OF ADLS AND FUNCTIONAL TRANSFERS IN HOME ENVIRONMENT. ACTIVITIES OF DAILY LIVING (OT/MARIANNE) THERAPEUTIC EXERCISE (OT/SAMPLER PICKUP) ENERGY CONSERVATION/ACTIVITY DEMAND (OT/MARIANNE) OT/SAMPLER PICKUP TO MONITOR AND EDUCATE ON OXYGEN SATURATION DURING ADLS/IADLS, NOTIFY PHYSICIAN AND/OR THE RN CLINICAL BID MANAGER FOR PHYSICIAN NOTIFICATION AND IF O2 SATS BELOW 90% AFTER 10 MIN OF REST. OT / MARIANNE TO IDENTIFY FALL RISK FACTORS; EDUCATE THE PATIENT/CAREGIVER ON WAYS TO REDUCE FALL RISK FACTORS AND ESTABLISH HOME EXERCISE PROGRAM TO MINIMIZE FALL RISK. MAY TEACH THE PATIENT FLOOR RECOVERY WHEN CLINICALLY APPROPRIATE. OT/SAMPLER PICKUP TO EDUCATE ON HYPERTENSION SELF-MANAGEMENT OT/MARIANNE TO [...] OF SKIN INTEGRITY ISSUES FROM [place] WITHIN 2 WKS. PT STG: PATIENT WILL [...] TO SAFELY NEGOTIATE STAIRS FROM [place] TO [place] WITH 2 STEPS W/O HANDRAIL VIA FRONT [...] ADMISSION [facility] [id number]
--- OUTSIDE RECORDS SUMMARY | 2025-04-06 18:00 | XMS_ITS | Clinical Summary ---
Author Organization Unknown Care Team Providers Care Computational Linguist Name Role Phone DIGNA ARIEL, ESTRELLA Unavailable Unava dinora STOKES RN, FRANKIE Unavailable Unavailabl e KARI PT, DIDI Unavailable Unavailable NAT SUPERVISOR SCRAP PREPARATION, GAUDENCIO Unavailable Unavailabl e RADHA OT, ROLANDO Unavailable Unavailable JOANNE STEVEN, HATTIE Unavailable Unavailable Payers Payer Name Policy Type Policy Number Effective Date Expira tion Date MEDICARE.[facility] [id number] Problems Condition Name Condition Details Condition Category Status Onset Date Resolution Date Last Treatment Date Treating Clinician Comments 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 02-07 [...] OF PNEUMONIA (RECURRENT) Active 02-07 00:00: 00 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) USE OF SYSTEMIC STEROIDS Active 02-07 [...] 80 mg tablet 02-07 00:00: 00 Yes [id number] CHOLESTEROL 1 tablet DAILY 1 tablet DAILY (route: oral) Med Classific ation: Cardiovas cular Therapy Agents digoxin 125 mcg (0.125 mg) tablet 02-07 00:00: 00 02-21 23:59 :00 No [id number] HEART RHYTHM 1 tablet DAILY 1 tablet DAILY (route: oral) Med Classific ation: Cardiovas cular Therapy Agents escitalopra m 10 mg tablet 02-07 00:00: 00 Yes [id number] MOOD 1 tablet DAILY 1 tablet DAILY (route: oral) Med Classific ation: Central Nervous System Agents ezetimibe 10 mg tablet 02-07 00:00: 00 Yes [id number] CHOLESTEROL 1 tablet DAILY 1 tablet DAILY (route: oral) Med Classific ation: Cardiovas cular Therapy Agents metoprolol succinate ER 25 mg tablet,exte nded release 24 hr 02-07 00:00: 00 02-21 23:59 :00 No [id number] BLOOD PRESSURE 0.5 tablet DAILY 0.5 tablet DAILY (route: oral) Med Classific ation: Cardiovas cular Therapy Agents pantoprazol e 40 mg tablet,joão yed release 02-07 00:00: 00 02-21 23:59 :00 No [id number] STOMACH ACID 1 tablet DAILY 1 tablet DAILY (route: oral) Med Classific ation: Gastroint estinal Therapy Agents prednisone 5 mg tablet 02-07 00:00: 00 Yes [id number] ADRENAL INSUFFICIEN CY 1 tablet DAILY 1 tablet DAILY (route: oral) Med Classific ation: Endocrine spironolact one 25 mg tablet 02-07 00:00: 00 Yes [id number] FLUID RETENTION 0.5 tablet DAILY 0.5 tablet DAILY (route: oral) Med Classific ation: Cardiovas cular Therapy Agents tamsulosin 0.4 mg capsule 02-07 00:00: 00 02-21 23:59 :00 No [id number] URINARY HEALTH 1 capsule DAILY 1 capsule DAILY (route: oral) Med Classific ation: Genitouri nary Therapy acetaminoph en 325 mg tablet 2024-05 00:00: 00 Yes [id number] PAIN 2 tablet 2 TIMES DAILY 2 tablet 2 TIMES DAILY (route: oral) Med Classific ation: Analgesic , Anti-infl ammatory or Antipyret ic aspirin 81 mg tablet 2024-05 00:00: 00 Yes [id number] ANTICOAGULA NT 1 tablet DAILY 1 tablet DAILY (route: oral) Med Classific ation: Hematolog ical Agents ipratropium 0.5 mg-albutero l 3 mg (2.5 mg base)/3 mL nebulizatio n soln 2024-05 00:00: 00 Yes [id number] COPD 3 mL EVERY 6 HOURS 3 mL EVERY 6 HOURS (route: inhalation ) Med Classific ation: Respirato ry Therapy Agents Lanoxin 62.5 mcg (0.0625 mg) tablet 2024-05 00:00: 00 Yes [id number] CHF 1 tablet DAILY 1 tablet DAILY (route: oral) Med Classific ation: Cardiovas cular Therapy Agents Lasix 20 mg tablet 2024-05 00:00: 00 Yes [id number] CHF 1 tablet DAILY 1 tablet DAILY (route: oral) Med Classific ation: Cardiovas cular Therapy Agents Toprol XL 25 mg tablet,exte nded release 2024-05 00:00: 00 Yes [id number] BP 25 mg DAILY 25 mg DAILY [...] SYSTEM MANAGEMENT; RN TO ASSESS AND TEACH, WRITER PRODUCER/CARPET CLEANING TECHNICIAN TO OBSERVE AND TEACH RELATED TO ALTERED RESPIRATORY STATUS TO MINIMIZE COMPLICATIONS AND REDUCE HOSPITALIZATION. [code = SN 1WK9 PT 1WK1 OT EFFECTIVE 02/10/2025K1 RESPIRATORY SYSTEM MANAGEMENT; RN TO ASSESS AND TEACH, WRITER PRODUCER/CARPET CLEANING TECHNICIAN TO OBSERVE AND TEACH RELATED TO ALTERED RESPIRATORY STATUS TO MINIMIZE COMPLICATIONS AND REDUCE HOSPITALIZATION.] Future Scheduled Test TRACHEOSTO MY CARE MANAGEMENT; RN/WRITER PRODUCER/CARPET CLEANING TECHNICIAN TO INSTRUCT PATIENT/CAREGIVER ON CARE AND MANAGEMENT OF TRACHEOSTOMY. RN/ WRITER PRODUCER/CARPET CLEANING TECHNICIAN TO PROVIDE SKILLED TEACHING ON TRACH COLLAR SUCTIONING PRN WITH 14 FR SUCTION CATHETER PER PATIENT TRACH CARE WITH INNER CANNULA: REMOVE INNER CANNULA, CLEANSE WITH NORMAL SALINE AND OR STERILE WATER AND REINSERT NON-DISPOSABLE CANNULA SIZE OF INNER CANNULA 5 BROOKS [code = TRACHEOSTOMY CARE MANAGEMENT; RN/WRITER PRODUCER/CARPET CLEANING TECHNICIAN TO INSTRUCT PATIENT/CAREGIVER ON CARE AND MANAGEMENT OF TRACHEOSTOMY. RN/ WRITER PRODUCER/CARPET CLEANING TECHNICIAN TO PROVIDE SKILLED TEACHING ON TRACH COLLAR SUCTIONING PRN WITH 14 FR SUCTION CATHETER PER PATIENT TRACH CARE WITH INNER CANNULA: REMOVE INNER CANNULA, CLEANSE WITH NORMAL SALINE AND OR STERILE WATER AND REINSERT NON-DISPOSABLE CANNULA SIZE OF INNER CANNULA 5 BROOKS] Future Scheduled Test FALL REDUC TION MANAGEMENT; RN TO ASSESS AND OBSERVE, WRITER PRODUCER/CARPET CLEANING TECHNICIAN TO OBSERVE FALL RISK FACTORS AND EDUCATE PATIENT/CAREGIVER ON STRATEGIES TO MINIMIZE THE RISK OF FALLING. [code = FALL REDUCTION MANAGEMENT; RN TO ASSESS AND OBSERVE, WRITER PRODUCER/CARPET CLEANING TECHNICIAN TO OBSERVE FALL RISK FACTORS AND EDUCATE PATIENT/CAREGIVER ON STRATEGIES TO MINIMIZE THE RISK OF FALLING.] Future Scheduled Test ANEMIA MAN AGEMENT; RN TO ASSESS AND TEACH, CARPET CLEANING TECHNICIAN/WRITER PRODUCER TO OBSERVE AND TEACH AND PROVIDE EDUCATION ON ANEMIA. [code = ANEMIA MANAGEMENT; RN TO ASSESS AND TEACH, CARPET CLEANING TECHNICIAN/WRITER PRODUCER TO OBSERVE AND TEACH AND PROVIDE EDUCATION ON ANEMIA.] Future Scheduled Test RN TO OBSE RVE, ASSESS, EVALUATE, AND DEVELOP AN INDIVIDUALIZED PLAN OF CARE. AGENCY MAY ACCEPT ORDERS FROM CONSULTING PHYSICIANS RN TO OBSERVE AND ASSESS, WRITER PRODUCER/CARPET CLEANING TECHNICIAN TO OBSERVE FOR RISK FOR FALLS AND INSTRUCT IN FALL PREVENTION, HOME SAFETY, MEDICATION MANAGEMENT, INFECTION PREVENTION, AND NUTRITION MANAGEMENT. RN/WRITER PRODUCER/CARPET CLEANING TECHNICIAN NURSE MAY PERFORM O2 SATURATION LEVEL ON ADMISSION AND PRN FOR RN TO ASSESS/WRITER PRODUCER TO OBSERVE PATIENT, WITH NOTIFICATION TO THE PHYSICIAN IF SATURATION IS 90% IN THE ABSENCE OF MORE SPECIFIC PARAMETERS FROM THE PHYSICIAN. AGENCY MAY PERFORM A RESUMPTION OF CARE VISIT FOLLOWING ANY HOSPITAL ADMISSION. RN/WRITER PRODUCER/CARPET CLEANING TECHNICIAN TO MONITOR CO-MORBID CONDITIONS LISTED ON THE PLAN OF CARE AND ANY NEW CONDITIONS THAT PRESENT THEMSELVES DURING THIS EPISODE TO IDENTIFY CHANGES AND INTERVENE TO MINIMIZE COMPLICATIONS. [code = RN TO OBSERVE, ASSESS, EVALUATE, AND DEVELOP AN INDIVIDUALIZED PLAN OF CARE. AGENCY MAY ACCEPT ORDERS FROM CONSULTING PHYSICIANS RN TO OBSERVE AND ASSESS, WRITER PRODUCER/CARPET CLEANING TECHNICIAN TO OBSERVE FOR RISK FOR FALLS AND INSTRUCT IN FALL PREVENTION, HOME SAFETY, MEDICATION MANAGEMENT, INFECTION PREVENTION, AND NUTRITION MANAGEMENT. RN/WRITER PRODUCER/CARPET CLEANING TECHNICIAN NURSE MAY PERFORM O2 SATURATION LEVEL ON ADMISSION AND PRN FOR RN TO ASSESS/WRITER PRODUCER TO OBSERVE PATIENT, WITH NOTIFICATION TO THE PHYSICIAN IF SATURATION IS 90% IN THE ABSENCE OF MORE SPECIFIC PARAMETERS FROM THE PHYSICIAN. AGENCY MAY PERFORM A RESUMPTION OF CARE VISIT FOLLOWING ANY HOSPITAL ADMISSION. RN/WRITER PRODUCER/CARPET CLEANING TECHNICIAN TO MONITOR CO-MORBID CONDITIONS LISTED ON THE PLAN OF CARE AND ANY NEW CONDITIONS THAT PRESENT THEMSELVES DURING THIS EPISODE TO IDENTIFY CHANGES AND INTERVENE TO MINIMIZE COMPLICATIONS.] Future Scheduled Test PAIN MANAG EMENT; RN TO ASSESS AND TEACH, CARPET CLEANING TECHNICIAN/WRITER PRODUCER TO OBSERVE AND TEACH AND PROVIDE EDUCATION ON PAIN MANAGEMENT TECHNIQUES. [code = PAIN MANAGEMENT; RN TO ASSESS AND TEACH, CARPET CLEANING TECHNICIAN/WRITER PRODUCER TO OBSERVE AND TEACH AND PROVIDE EDUCATION ON PAIN MANAGEMENT TECHNIQUES.] Future Scheduled Test RISK FOR H OSPITALIZATION; RN TO ASSESS/TEACH, CARPET CLEANING TECHNICIAN/WRITER PRODUCER TO OBSERVE/TEACH PATIENT/CAREGIVER ON RISK FOR HOSPITALIZATION/EMERGENCY ROOM VISITS, TEACH SIGNS AND SYMPTOMS THAT PUT PATIENT AT RISK, WHEN TO NOTIFY NURSE/PHYSICIAN OF COMPLICATIONS/DECLINE, AND WHEN TO CALL 911. [code = RISK FOR HOSPITALIZATION; RN TO ASSESS/TEACH, CARPET CLEANING TECHNICIAN/WRITER PRODUCER TO OBSERVE/TEACH PATIENT/CAREGIVER ON RISK FOR HOSPITALIZATION/EMERGENCY ROOM VISITS, TEACH SIGNS AND SYMPTOMS THAT PUT PATIENT AT RISK, WHEN TO NOTIFY NURSE/PHYSICIAN OF COMPLICATIONS/DECLINE, AND WHEN TO CALL 911.] Future Scheduled Test CARDIOVASC ULAR SYSTEM; RN TO ASSESS/TEACH, WRITER PRODUCER/CARPET CLEANING TECHNICIAN TO OBSERVE/TEACH RELATED TO ALTERED CARDIOVASCULAR STATUS TO MINIMIZE COMPLICATIONS AND REDUCE HOSPITALIZATION. [code = CARDIOVASCULAR SYSTEM; RN TO ASSESS/TEACH, WRITER PRODUCER/CARPET CLEANING TECHNICIAN TO OBSERVE/TEACH RELATED TO ALTERED CARDIOVASCULAR STATUS TO MINIMIZE COMPLICATIONS AND REDUCE HOSPITALIZATION.] Future Scheduled Test HYPERTENSI ON MANAGEMENT; RN TO ASSESS AND TEACH, WRITER PRODUCER/CARPET CLEANING TECHNICIAN TO OBSERVE AND TEACH WARNING SIGNS AND SYMPTOMS TO AVOID HOSPITALIZATION. [code = HYPERTENSION MANAGEMENT; RN TO ASSESS AND TEACH, WRITER PRODUCER/CARPET CLEANING TECHNICIAN TO OBSERVE AND TEACH WARNING SIGNS AND SYMPTOMS TO AVOID HOSPITALIZATION.] Future Scheduled Test HEART FAIL URE MONITORING RN/CARPET CLEANING TECHNICIAN/WRITER PRODUCER TO MONITOR PATIENT FOR SIGNS AND SYMPTOMS OF HEART FAILURE EXACERBATION, MONITOR FOR ADHERENCE WITH MEDICATION AND HEART FAILURE MANAGEMENT REGIMEN. [code = HEART FAILURE MONITORING RN/CARPET CLEANING TECHNICIAN/WRITER PRODUCER TO MONITOR PATIENT FOR SIGNS AND SYMPTOMS OF HEART FAILURE EXACERBATION, MONITOR FOR ADHERENCE WITH MEDICATION AND HEART FAILURE MANAGEMENT REGIMEN.] Future Scheduled Test DIABETES M ONITORING RN/CARPET CLEANING TECHNICIAN/WRITER PRODUCER TO MONITOR BLOOD SUGAR LOG FOR BLOOD SUGAR READINGS THAT ARE BEING CHECKED BY PATIENT, CAREGIVER NEEDED FOR SIGNS AND SYMPTOMS OF HYPER/HYPOGLYCEMIA. PATIENT THERAPEUTIC BLOOD SUGAR PARAMETERS ARE 70 - 300. REPORT BLOOD SUGARS OUT OF RANGE TO PHYSICIAN. NURSE MAY PERFORM FINGER STICK BLOOD GLUCOSE NEEDED FOR SIGNS AND SYMPTOMS OF HYPO AND HYPERGLYCEMIA. RN/CARPET CLEANING TECHNICIAN/WRITER PRODUCER TO MONITOR ADHERENCE OF PATIENT/CAREGIVER PERFORMING DIABETIC FOOT CARE AND MAY PERFORM DIABETIC FOOT CARE PRN. RN/CARPET CLEANING TECHNICIAN/WRITER PRODUCER TO MONITOR FOR ADHERENCE TO DIABETIC SELF-CARE AND MANAGEMENT INCLUDING MEDICATIONS. [code = DIABETES MONITORING RN/CARPET CLEANING TECHNICIAN/WRITER PRODUCER TO MONITOR BLOOD SUGAR LOG FOR BLOOD SUGAR READINGS THAT ARE BEING CHECKED BY PATIENT, CAREGIVER NEEDED FOR SIGNS AND SYMPTOMS OF HYPER/HYPOGLYCEMIA. PATIENT THERAPEUTIC BLOOD SUGAR PARAMETERS ARE 70 - 300. REPORT BLOOD SUGARS OUT OF RANGE TO PHYSICIAN. NURSE MAY PERFORM FINGER STICK BLOOD GLUCOSE NEEDED FOR SIGNS AND SYMPTOMS OF HYPO AND HYPERGLYCEMIA. RN/CARPET CLEANING TECHNICIAN/WRITER PRODUCER TO MONITOR ADHERENCE OF PATIENT/CAREGIVER PERFORMING DIABETIC FOOT CARE AND MAY PERFORM DIABETIC FOOT CARE PRN. RN/CARPET CLEANING TECHNICIAN/WRITER PRODUCER TO MONITOR FOR ADHERENCE TO DIABETIC SELF-CARE AND MANAGEMENT INCLUDING MEDICATIONS.] Future Scheduled Test HYPOTENSIO N MANAGEMENT; RN TO ASSESS AND TEACH/ WRITER PRODUCER /CARPET CLEANING TECHNICIAN TO OBSERVE AND TEACH WARNING SIGNS AND SYMPTOMS TO AVOID HOSPITALIZATION. [code = HYPOTENSION MANAGEMENT; RN TO ASSESS AND TEACH/ WRITER PRODUCER /CARPET CLEANING TECHNICIAN TO OBSERVE AND TEACH WARNING SIGNS AND SYMPTOMS TO AVOID HOSPITALIZATION.] Future Scheduled Test ARRHYTHMIA MANAGEMENT; RN TO ASSESS AND TEACH, WRITER PRODUCER/CARPET CLEANING TECHNICIAN TO OBSERVE AND TEACH WARNING SIGNS AND SYMPTOMS TO AVOID HOSPITALIZATION. [code = ARRHYTHMIA MANAGEMENT; RN TO ASSESS AND TEACH, WRITER PRODUCER/CARPET CLEANING TECHNICIAN TO OBSERVE AND TEACH WARNING SIGNS AND SYMPTOMS TO AVOID HOSPITALIZATION.] Future Scheduled Test MEDICATION MANAGEMENT; RN/WRITER PRODUCER/CARPET CLEANING TECHNICIAN TO REVIEW MEDICATIONS FOR INTERACTIONS, EFFECTIVENESS OF DRUG THERAPY, AND SIGNS/SYMPTOMS OF ADVERSE REACTIONS. MAY INSTRUCT AND REINFORCE MEDICATION TEACHING RELATED TO THE USE OF MEDICATIONS, DOSAGE, FREQUENCY, PURPOSE, SIDE EFFECTS, AND TO REPORT COMPLICATIONS. [code = MEDICATION MANAGEMENT; RN/WRITER PRODUCER/CARPET CLEANING TECHNICIAN TO REVIEW MEDICATIONS FOR INTERACTIONS, EFFECTIVENESS [...] EVAL UATE, OBSERVE / ASSESS, AND MONITOR, SUPERVISOR SCRAP PREPARATION TO OBSERVE AND MONITOR, PROVIDE SKILLED THERAPEUTIC INTERVENTION, ACTIVITY, EDUCATION, AND TRAINING TO ADDRESS GEN. WEAKNESS, POOR OVERALL ACTIVITY TOLERANCE, AND FUNCTIONAL LIMITATIONS IMPACTING SAFETY AND INDEPENDENCE. BED MOBILITY (PT/SUPERVISOR SCRAP PREPARATION) PT/SUPERVISOR SCRAP PREPARATION TO PROVIDE GAIT TRAINING FOR IMPROVED MOBILITY AND /OR TO NORMALIZE GAIT PATTERN THERAPEUTIC EXERCISES AND ESTABLISHING A HOME EXERCISE PROGRAM (PT/SUPERVISOR SCRAP PREPARATION) PT/SUPERVISOR SCRAP PREPARATION TO PROVIDE STAIR TRAINING PT / SUPERVISOR SCRAP PREPARATION TO MONITOR AND EDUCATE ON OXYGEN SATURATION DURING ADLS/IADLS, NOTIFY PHYSICIAN AND/OR THE RN CLINICAL STATION ENGINEER MAIN LINE FOR PHYSICIAN NOTIFICATION AND IF O2 SATS BELOW PHYSICIAN ORDERED PARAMETERS AFTER 10 MIN OF REST PT / SUPERVISOR SCRAP PREPARATION TO OBSERVE FOR EARLY SIGNS AND SYMPTOMS OF DEPRESSION OR DEPRESSION GETTING WORSE AND TO EDUCATE ON HOW TO FIND HELP. PT / SUPERVISOR SCRAP PREPARATION MAY EDUCATE ON PAIN MANAGEMENT CLINICALLY INDICATED, INCLUDING NON-PHARMACOLOGICAL PAIN REDUCTION TECHNIQUES PT / SUPERVISOR SCRAP PREPARATION TO MONITOR FOR HYPO/HYPERGLYCEMIA AND CONDUCT ROUTINE FOOT INSPECTIONS. RECORD PATIENT REPORTED BLOOD SUGAR LEVELS AND NOTIFY PHYSICIAN AND/OR THE RN CLINICAL STATION ENGINEER MAIN LINE FOR PHYSICIAN NOTIFICATION IF BLOOD SUGAR LEVELS ARE OUTSIDE ORDERED PARAMETERS. TEACH PATIENT/CAREGIVER ON DAILY FOOT INSPECTIONS PT / SUPERVISOR SCRAP PREPARATION TO INSTRUCT PATIENT/CAREGIVER ON RISK FOR HOSPITALIZATION/EMERGENCY ROOM VISITS, TEACH SIGNS AND SYMPTOMS THAT PUT PATIENT AT RISK, WHEN TO NOTIFY NURSE/PHYSICIAN OF COMPLICATIONS/DECLINE, AND WHEN TO CALL 911. PT/SUPERVISOR SCRAP PREPARATION TO EDUCATE ON ARTHRITIS SELF-MANAGEMENT PT / SUPERVISOR SCRAP PREPARATION TO EDUCATE ON HEART FAILURE SELF-MANAGEMENT PT / SUPERVISOR SCRAP PREPARATION TO EDUCATE ON HYPERTENSION SELF-MANAGEMENT PT TO ASSESS / SUPERVISOR SCRAP PREPARATION TO MONITOR CARDIO/RESPIRATORY SYSTEM; AND NOTIFY THE PHYSICIAN AND/OR THE RN CLINICAL STATION ENGINEER MAIN LINE FOR PHYSICIAN NOTIFICATION FOR EARLY SIGNS AND SYMPTOMS OF EXACERBATION OR DETERIORATION. PT / SUPERVISOR SCRAP PREPARATION TO EDUCATE ON ATRIAL FIBRILLATION SELF-MANAGEMENT. PT / SUPERVISOR SCRAP PREPARATION TO EDUCATE ON PNEUMONIA / ASPIRATION PNEUMONIA SELF-MANAGEMENT. PT/SUPERVISOR SCRAP PREPARATION TO IDENTIFY FALL RISK FACTORS; EDUCATE THE PATIENT/CAREGIVER ON WAYS TO REDUCE FALL RISK FACTORS AND ESTABLISH HOME EXERCISE PROGRAM TO MINIMIZE FALL RISK. MAY TEACH THE PATIENT FLOOR RECOVERY WHEN CLINICALLY APPROPRIATE [code = PT TO EVALUATE, OBSERVE / ASSESS, AND MONITOR, SUPERVISOR SCRAP PREPARATION TO OBSERVE AND MONITOR, PROVIDE SKILLED THERAPEUTIC INTERVENTION, ACTIVITY, EDUCATION, AND TRAINING TO ADDRESS GEN. WEAKNESS, POOR OVERALL ACTIVITY TOLERANCE, AND FUNCTIONAL LIMITATIONS IMPACTING SAFETY AND INDEPENDENCE. BED MOBILITY (PT/SUPERVISOR SCRAP PREPARATION) PT/SUPERVISOR SCRAP PREPARATION TO PROVIDE GAIT TRAINING FOR IMPROVED MOBILITY AND /OR TO NORMALIZE GAIT PATTERN THERAPEUTIC EXERCISES AND ESTABLISHING A HOME EXERCISE PROGRAM (PT/SUPERVISOR SCRAP PREPARATION) PT/SUPERVISOR SCRAP PREPARATION TO PROVIDE STAIR TRAINING PT / SUPERVISOR SCRAP PREPARATION TO MONITOR AND EDUCATE ON OXYGEN SATURATION DURING ADLS/IADLS, NOTIFY PHYSICIAN AND/OR THE RN CLINICAL STATION ENGINEER MAIN LINE FOR PHYSICIAN NOTIFICATION AND IF O2 SATS BELOW PHYSICIAN ORDERED PARAMETERS AFTER 10 MIN OF REST PT / SUPERVISOR SCRAP PREPARATION TO OBSERVE FOR EARLY SIGNS AND SYMPTOMS OF DEPRESSION OR DEPRESSION GETTING WORSE AND TO EDUCATE ON HOW TO FIND HELP. PT / SUPERVISOR SCRAP PREPARATION MAY EDUCATE ON PAIN MANAGEMENT CLINICALLY INDICATED, INCLUDING NON-PHARMACOLOGICAL PAIN REDUCTION TECHNIQUES PT / SUPERVISOR SCRAP PREPARATION TO MONITOR FOR HYPO/HYPERGLYCEMIA AND CONDUCT ROUTINE FOOT INSPECTIONS. RECORD PATIENT REPORTED BLOOD SUGAR LEVELS AND NOTIFY PHYSICIAN AND/OR THE RN CLINICAL STATION ENGINEER MAIN LINE FOR PHYSICIAN NOTIFICATION IF BLOOD SUGAR LEVELS ARE OUTSIDE ORDERED PARAMETERS. TEACH PATIENT/CAREGIVER ON DAILY FOOT INSPECTIONS PT / SUPERVISOR SCRAP PREPARATION TO INSTRUCT PATIENT/CAREGIVER ON RISK FOR HOSPITALIZATION/EMERGENCY ROOM VISITS, TEACH SIGNS AND SYMPTOMS THAT PUT PATIENT AT RISK, WHEN TO NOTIFY NURSE/PHYSICIAN OF COMPLICATIONS/DECLINE, AND WHEN TO CALL 911. PT/SUPERVISOR SCRAP PREPARATION TO EDUCATE ON ARTHRITIS SELF-MANAGEMENT PT / SUPERVISOR SCRAP PREPARATION TO EDUCATE ON HEART FAILURE SELF-MANAGEMENT PT / SUPERVISOR SCRAP PREPARATION TO EDUCATE ON HYPERTENSION SELF-MANAGEMENT PT TO ASSESS / SUPERVISOR SCRAP PREPARATION TO MONITOR CARDIO/RESPIRATORY SYSTEM; AND NOTIFY THE PHYSICIAN AND/OR THE RN CLINICAL STATION ENGINEER MAIN LINE FOR PHYSICIAN NOTIFICATION FOR EARLY SIGNS AND SYMPTOMS OF EXACERBATION OR DETERIORATION. PT / SUPERVISOR SCRAP PREPARATION TO EDUCATE ON ATRIAL FIBRILLATION SELF-MANAGEMENT. PT / SUPERVISOR SCRAP PREPARATION TO EDUCATE ON PNEUMONIA / ASPIRATION PNEUMONIA SELF-MANAGEMENT. PT/SUPERVISOR SCRAP PREPARATION TO IDENTIFY FALL RISK FACTORS; EDUCATE THE PATIENT/CAREGIVER ON WAYS TO REDUCE FALL RISK FACTORS AND ESTABLISH HOME EXERCISE PROGRAM TO MINIMIZE FALL RISK. MAY TEACH THE PATIENT FLOOR RECOVERY WHEN CLINICALLY APPROPRIATE] Future Scheduled Test AGENCY MAY PERFORM A RESUMPTION OF CARE VISIT FOLLOWING ANY HOSPITAL ADMISSION. OT TO EVALUATE, OBSERVE / ASSESS, AND MONITOR, MENTALLY IMPAIRED TEACHER TO OBSERVE AND MONITOR, PROVIDE SKILLED THERAPEUTIC INTERVENTION, ACTIVITY, EDUCATION, AND TRAINING TO ADDRESS SAFETY AND INDEPENDENCE OF ADLS AND FUNCTIONAL TRANSFERS IN HOME ENVIRONMENT. ACTIVITIES OF DAILY LIVING (OT/MARIANNE) THERAPEUTIC EXERCISE (OT/MENTALLY IMPAIRED TEACHER) ENERGY CONSERVATION/ACTIVITY DEMAND (OT/MENTALLY IMPAIRED TEACHER) OT/MENTALLY IMPAIRED TEACHER TO MONITOR AND EDUCATE ON OXYGEN SATURATION DURING ADLS/IADLS, NOTIFY PHYSICIAN AND/OR THE RN CLINICAL STATION ENGINEER MAIN LINE FOR PHYSICIAN NOTIFICATION AND IF O2 SATS BELOW 90% AFTER 10 MIN OF REST. OT / MENTALLY IMPAIRED TEACHER TO IDENTIFY FALL RISK FACTORS; EDUCATE THE PATIENT/CAREGIVER ON WAYS TO REDUCE FALL RISK FACTORS AND ESTABLISH HOME EXERCISE PROGRAM TO MINIMIZE FALL RISK. MAY TEACH THE PATIENT FLOOR RECOVERY WHEN CLINICALLY APPROPRIATE. OT/MENTALLY IMPAIRED TEACHER TO EDUCATE ON HYPERTENSION SELF-MANAGEMENT OT/MARIANNE TO EDUCATE ON ATRIAL FIBRILLATION SELF-MANAGEMENT. [code = AGENCY MAY PERFORM A RESUMPTION OF CARE VISIT FOLLOWING ANY HOSPITAL ADMISSION. OT TO EVALUATE, OBSERVE / ASSESS, AND MONITOR, MENTALLY IMPAIRED TEACHER TO OBSERVE AND MONITOR, PROVIDE SKILLED THERAPEUTIC INTERVENTION, ACTIVITY, EDUCATION, AND TRAINING TO ADDRESS SAFETY AND INDEPENDENCE OF ADLS AND FUNCTIONAL TRANSFERS IN HOME ENVIRONMENT. ACTIVITIES OF DAILY LIVING (OT/MARIANNE) THERAPEUTIC EXERCISE (OT/MENTALLY IMPAIRED TEACHER) ENERGY CONSERVATION/ACTIVITY DEMAND (OT/MARIANNE) OT/MENTALLY IMPAIRED TEACHER TO MONITOR AND EDUCATE ON OXYGEN SATURATION DURING ADLS/IADLS, NOTIFY PHYSICIAN AND/OR THE RN CLINICAL STATION ENGINEER MAIN LINE FOR PHYSICIAN NOTIFICATION AND IF O2 SATS BELOW 90% AFTER 10 MIN OF REST. OT / MARIANNE TO IDENTIFY FALL RISK FACTORS; EDUCATE THE PATIENT/CAREGIVER ON WAYS TO REDUCE FALL RISK FACTORS AND ESTABLISH HOME EXERCISE PROGRAM TO MINIMIZE FALL RISK. MAY TEACH THE PATIENT FLOOR RECOVERY WHEN CLINICALLY APPROPRIATE. OT/MENTALLY IMPAIRED TEACHER TO EDUCATE ON HYPERTENSION SELF-MANAGEMENT OT/MARIANNE [...] End Date/Time Encounter Type Admission Type Attending [facility] Care Department Encounter ID Discharge Date Discharge Status Discharge Condition Discharge Reason Percent Goals Met 2025-02-07 00:00:00 2025-04-07 00:00:00 Outpatient NEW ADMISSION [facility] [id number]
--- OUTSIDE RECORDS SUMMARY | 2025-04-06 18:00 | XMS_ITS | Clinical Summary ---
Author Organization Unknown Care Team Providers Care Promotions Director Name Role Phone DIGNA ARIEL, ESTRELLA Unavailable Unava dinora STOKES RN, FRANKIE Unavailable Unavailabl e KARI PT, DIDI Unavailable Unavailable NAT SEBD TEACHER, GAUDENCIO Unavailable Unavailabl e RADHA OT, ROLANDO Unavailable Unavailable JOANNE STEVEN, HATTIE Unavailable Unavailable Payers Payer Name Policy Type Policy Number Effective Date Expira tion Date MEDICARE.[facility] [id number] Problems Condition Name Condition Details Condition Category Status Onset Date Resolution Date Last Treatment Date Treating Clinician Comments 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 02-07 [...] OF PNEUMONIA (RECURRENT) Active 02-07 00:00: 00 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 STEROIDS Active [...] 80 mg tablet 02-07 00:00: 00 Yes [id number] CHOLESTEROL 1 tablet DAILY 1 tablet DAILY (route: oral) Med Classific ation: Cardiovas cular Therapy Agents digoxin 125 mcg (0.125 mg) tablet 02-07 00:00: 00 02-21 23:59 :00 No [id number] HEART RHYTHM 1 tablet DAILY 1 tablet DAILY (route: oral) Med Classific ation: Cardiovas cular Therapy Agents escitalopra m 10 mg tablet 02-07 00:00: 00 Yes [id number] MOOD 1 tablet DAILY 1 tablet DAILY (route: oral) Med Classific ation: Central Nervous System Agents ezetimibe 10 mg tablet 02-07 00:00: 00 Yes [id number] CHOLESTEROL 1 tablet DAILY 1 tablet DAILY (route: oral) Med Classific ation: Cardiovas cular Therapy Agents metoprolol succinate ER 25 mg tablet,exte nded release 24 hr 02-07 00:00: 00 02-21 23:59 :00 No [id number] BLOOD PRESSURE 0.5 tablet DAILY 0.5 tablet DAILY (route: oral) Med Classific ation: Cardiovas cular Therapy Agents pantoprazol e 40 mg tablet,joão yed release 02-07 00:00: 00 02-21 23:59 :00 No [id number] STOMACH ACID 1 tablet DAILY 1 tablet DAILY (route: oral) Med Classific ation: Gastroint estinal Therapy Agents prednisone 5 mg tablet 02-07 00:00: 00 Yes [id number] ADRENAL INSUFFICIEN CY 1 tablet DAILY 1 tablet DAILY (route: oral) Med Classific ation: Endocrine spironolact one 25 mg tablet 02-07 00:00: 00 Yes [id number] FLUID RETENTION 0.5 tablet DAILY 0.5 tablet DAILY (route: oral) Med Classific ation: Cardiovas cular Therapy Agents tamsulosin 0.4 mg capsule 02-07 00:00: 00 02-21 23:59 :00 No [id number] URINARY HEALTH 1 capsule DAILY 1 capsule DAILY (route: oral) Med Classific ation: Genitouri nary Therapy acetaminoph en 325 mg tablet 2024-05 00:00: 00 Yes [id number] PAIN 2 tablet 2 TIMES DAILY 2 tablet 2 TIMES DAILY (route: oral) Med Classific ation: Analgesic , Anti-infl ammatory or Antipyret ic aspirin 81 mg tablet 2024-05 00:00: 00 Yes [id number] ANTICOAGULA NT 1 tablet DAILY 1 tablet DAILY (route: oral) Med Classific ation: Hematolog ical Agents ipratropium 0.5 mg-albutero l 3 mg (2.5 mg base)/3 mL nebulizatio n soln 2024-05 00:00: 00 Yes [id number] COPD 3 mL EVERY 6 HOURS 3 mL EVERY 6 HOURS (route: inhalation ) Med Classific ation: Respirato ry Therapy Agents Lanoxin 62.5 mcg (0.0625 mg) tablet 2024-05 00:00: 00 Yes [id number] CHF 1 tablet DAILY 1 tablet DAILY (route: oral) Med Classific ation: Cardiovas cular Therapy Agents Lasix 20 mg tablet 2024-05 00:00: 00 Yes [id number] CHF 1 tablet DAILY 1 tablet DAILY (route: oral) Med Classific ation: Cardiovas cular Therapy Agents Toprol XL 25 mg tablet,exte nded release 2024-05 00:00: 00 Yes [id number] BP 25 mg DAILY 25 mg DAILY [...] SYSTEM MANAGEMENT; RN TO ASSESS AND TEACH, EATING DISORDER SPECIALIST/REGISTRATION SCHEDULING SPECIALIST TO OBSERVE AND TEACH RELATED TO ALTERED RESPIRATORY STATUS TO MINIMIZE COMPLICATIONS AND REDUCE HOSPITALIZATION. [code = SN 1WK9 PT 1WK1 OT EFFECTIVE 02/10/2025K1 RESPIRATORY SYSTEM MANAGEMENT; RN TO ASSESS AND TEACH, EATING DISORDER SPECIALIST/REGISTRATION SCHEDULING SPECIALIST TO OBSERVE AND TEACH RELATED TO ALTERED RESPIRATORY STATUS TO MINIMIZE COMPLICATIONS AND REDUCE HOSPITALIZATION.] Future Scheduled Test TRACHEOSTO MY CARE MANAGEMENT; RN/EATING DISORDER SPECIALIST/REGISTRATION SCHEDULING SPECIALIST TO INSTRUCT PATIENT/CAREGIVER ON CARE AND MANAGEMENT OF TRACHEOSTOMY. RN/ EATING DISORDER SPECIALIST/REGISTRATION SCHEDULING SPECIALIST TO PROVIDE SKILLED TEACHING ON TRACH COLLAR SUCTIONING PRN WITH 14 FR SUCTION CATHETER PER PATIENT TRACH CARE WITH INNER CANNULA: REMOVE INNER CANNULA, CLEANSE WITH NORMAL SALINE AND OR STERILE WATER AND REINSERT NON-DISPOSABLE CANNULA SIZE OF INNER CANNULA 5 BROOKS [code = TRACHEOSTOMY CARE MANAGEMENT; RN/EATING DISORDER SPECIALIST/REGISTRATION SCHEDULING SPECIALIST TO INSTRUCT PATIENT/CAREGIVER ON CARE AND MANAGEMENT OF TRACHEOSTOMY. RN/ EATING DISORDER SPECIALIST/REGISTRATION SCHEDULING SPECIALIST TO PROVIDE SKILLED TEACHING ON TRACH COLLAR SUCTIONING PRN WITH 14 FR SUCTION CATHETER PER PATIENT TRACH CARE WITH INNER CANNULA: REMOVE INNER CANNULA, CLEANSE WITH NORMAL SALINE AND OR STERILE WATER AND REINSERT NON-DISPOSABLE CANNULA SIZE OF INNER CANNULA 5 BROOKS] Future Scheduled Test FALL REDUC TION MANAGEMENT; RN TO ASSESS AND OBSERVE, EATING DISORDER SPECIALIST/REGISTRATION SCHEDULING SPECIALIST TO OBSERVE FALL RISK FACTORS AND EDUCATE PATIENT/CAREGIVER ON STRATEGIES TO MINIMIZE THE RISK OF FALLING. [code = FALL REDUCTION MANAGEMENT; RN TO ASSESS AND OBSERVE, EATING DISORDER SPECIALIST/REGISTRATION SCHEDULING SPECIALIST TO OBSERVE FALL RISK FACTORS AND EDUCATE PATIENT/CAREGIVER ON STRATEGIES TO MINIMIZE THE RISK OF FALLING.] Future Scheduled Test ANEMIA MAN AGEMENT; RN TO ASSESS AND TEACH, REGISTRATION SCHEDULING SPECIALIST/EATING DISORDER SPECIALIST TO OBSERVE AND TEACH AND PROVIDE EDUCATION ON ANEMIA. [code = ANEMIA MANAGEMENT; RN TO ASSESS AND TEACH, REGISTRATION SCHEDULING SPECIALIST/EATING DISORDER SPECIALIST TO OBSERVE AND TEACH AND PROVIDE EDUCATION ON ANEMIA.] Future Scheduled Test RN TO OBSE RVE, ASSESS, EVALUATE, AND DEVELOP AN INDIVIDUALIZED PLAN OF CARE. AGENCY MAY ACCEPT ORDERS FROM CONSULTING PHYSICIANS RN TO OBSERVE AND ASSESS, EATING DISORDER SPECIALIST/REGISTRATION SCHEDULING SPECIALIST TO OBSERVE FOR RISK FOR FALLS AND INSTRUCT IN FALL PREVENTION, HOME SAFETY, MEDICATION MANAGEMENT, INFECTION PREVENTION, AND NUTRITION MANAGEMENT. RN/EATING DISORDER SPECIALIST/REGISTRATION SCHEDULING SPECIALIST NURSE MAY PERFORM O2 SATURATION LEVEL ON ADMISSION AND PRN FOR RN TO ASSESS/EATING DISORDER SPECIALIST TO OBSERVE PATIENT, WITH NOTIFICATION TO THE PHYSICIAN IF SATURATION IS 90% IN THE ABSENCE OF MORE SPECIFIC PARAMETERS FROM THE PHYSICIAN. AGENCY MAY PERFORM A RESUMPTION OF CARE VISIT FOLLOWING ANY HOSPITAL ADMISSION. RN/EATING DISORDER SPECIALIST/REGISTRATION SCHEDULING SPECIALIST TO MONITOR CO-MORBID CONDITIONS LISTED ON THE PLAN OF CARE AND ANY NEW CONDITIONS THAT PRESENT THEMSELVES DURING THIS EPISODE TO IDENTIFY CHANGES AND INTERVENE TO MINIMIZE COMPLICATIONS. [code = RN TO OBSERVE, ASSESS, EVALUATE, AND DEVELOP AN INDIVIDUALIZED PLAN OF CARE. AGENCY MAY ACCEPT ORDERS FROM CONSULTING PHYSICIANS RN TO OBSERVE AND ASSESS, EATING DISORDER SPECIALIST/REGISTRATION SCHEDULING SPECIALIST TO OBSERVE FOR RISK FOR FALLS AND INSTRUCT IN FALL PREVENTION, HOME SAFETY, MEDICATION MANAGEMENT, INFECTION PREVENTION, AND NUTRITION MANAGEMENT. RN/EATING DISORDER SPECIALIST/REGISTRATION SCHEDULING SPECIALIST NURSE MAY PERFORM O2 SATURATION LEVEL ON ADMISSION AND PRN FOR RN TO ASSESS/EATING DISORDER SPECIALIST TO OBSERVE PATIENT, WITH NOTIFICATION TO THE PHYSICIAN IF SATURATION IS 90% IN THE ABSENCE OF MORE SPECIFIC PARAMETERS FROM THE PHYSICIAN. AGENCY MAY PERFORM A RESUMPTION OF CARE VISIT FOLLOWING ANY HOSPITAL ADMISSION. RN/EATING DISORDER SPECIALIST/REGISTRATION SCHEDULING SPECIALIST TO MONITOR CO-MORBID CONDITIONS LISTED ON THE PLAN OF CARE AND ANY NEW CONDITIONS THAT PRESENT THEMSELVES DURING THIS EPISODE TO IDENTIFY CHANGES AND INTERVENE TO MINIMIZE COMPLICATIONS.] Future Scheduled Test PAIN MANAG EMENT; RN TO ASSESS AND TEACH, REGISTRATION SCHEDULING SPECIALIST/EATING DISORDER SPECIALIST TO OBSERVE AND TEACH AND PROVIDE EDUCATION ON PAIN MANAGEMENT TECHNIQUES. [code = PAIN MANAGEMENT; RN TO ASSESS AND TEACH, REGISTRATION SCHEDULING SPECIALIST/EATING DISORDER SPECIALIST TO OBSERVE AND TEACH AND PROVIDE EDUCATION ON PAIN MANAGEMENT TECHNIQUES.] Future Scheduled Test RISK FOR H OSPITALIZATION; RN TO ASSESS/TEACH, REGISTRATION SCHEDULING SPECIALIST/EATING DISORDER SPECIALIST TO OBSERVE/TEACH PATIENT/CAREGIVER ON RISK FOR HOSPITALIZATION/EMERGENCY ROOM VISITS, TEACH SIGNS AND SYMPTOMS THAT PUT PATIENT AT RISK, WHEN TO NOTIFY NURSE/PHYSICIAN OF COMPLICATIONS/DECLINE, AND WHEN TO CALL 911. [code = RISK FOR HOSPITALIZATION; RN TO ASSESS/TEACH, REGISTRATION SCHEDULING SPECIALIST/EATING DISORDER SPECIALIST TO OBSERVE/TEACH PATIENT/CAREGIVER ON RISK FOR HOSPITALIZATION/EMERGENCY ROOM VISITS, TEACH SIGNS AND SYMPTOMS THAT PUT PATIENT AT RISK, WHEN TO NOTIFY NURSE/PHYSICIAN OF COMPLICATIONS/DECLINE, AND WHEN TO CALL 911.] Future Scheduled Test CARDIOVASC ULAR SYSTEM; RN TO ASSESS/TEACH, EATING DISORDER SPECIALIST/REGISTRATION SCHEDULING SPECIALIST TO OBSERVE/TEACH RELATED TO ALTERED CARDIOVASCULAR STATUS TO MINIMIZE COMPLICATIONS AND REDUCE HOSPITALIZATION. [code = CARDIOVASCULAR SYSTEM; RN TO ASSESS/TEACH, EATING DISORDER SPECIALIST/REGISTRATION SCHEDULING SPECIALIST TO OBSERVE/TEACH RELATED TO ALTERED CARDIOVASCULAR STATUS TO MINIMIZE COMPLICATIONS AND REDUCE HOSPITALIZATION.] Future Scheduled Test HYPERTENSI ON MANAGEMENT; RN TO ASSESS AND TEACH, EATING DISORDER SPECIALIST/REGISTRATION SCHEDULING SPECIALIST TO OBSERVE AND TEACH WARNING SIGNS AND SYMPTOMS TO AVOID HOSPITALIZATION. [code = HYPERTENSION MANAGEMENT; RN TO ASSESS AND TEACH, EATING DISORDER SPECIALIST/REGISTRATION SCHEDULING SPECIALIST TO OBSERVE AND TEACH WARNING SIGNS AND SYMPTOMS TO AVOID HOSPITALIZATION.] Future Scheduled Test HEART FAIL URE MONITORING RN/REGISTRATION SCHEDULING SPECIALIST/EATING DISORDER SPECIALIST TO MONITOR PATIENT FOR SIGNS AND SYMPTOMS OF HEART FAILURE EXACERBATION, MONITOR FOR ADHERENCE WITH MEDICATION AND HEART FAILURE MANAGEMENT REGIMEN. [code = HEART FAILURE MONITORING RN/REGISTRATION SCHEDULING SPECIALIST/EATING DISORDER SPECIALIST TO MONITOR PATIENT FOR SIGNS AND SYMPTOMS OF HEART FAILURE EXACERBATION, MONITOR FOR ADHERENCE WITH MEDICATION AND HEART FAILURE MANAGEMENT REGIMEN.] Future Scheduled Test DIABETES M ONITORING RN/REGISTRATION SCHEDULING SPECIALIST/EATING DISORDER SPECIALIST TO MONITOR BLOOD SUGAR LOG FOR BLOOD SUGAR READINGS THAT ARE BEING CHECKED BY PATIENT, CAREGIVER NEEDED FOR SIGNS AND SYMPTOMS OF HYPER/HYPOGLYCEMIA. PATIENT THERAPEUTIC BLOOD SUGAR PARAMETERS ARE 70 - 300. REPORT BLOOD SUGARS OUT OF RANGE TO PHYSICIAN. NURSE MAY PERFORM FINGER STICK BLOOD GLUCOSE NEEDED FOR SIGNS AND SYMPTOMS OF HYPO AND HYPERGLYCEMIA. RN/REGISTRATION SCHEDULING SPECIALIST/EATING DISORDER SPECIALIST TO MONITOR ADHERENCE OF PATIENT/CAREGIVER PERFORMING DIABETIC FOOT CARE AND MAY PERFORM DIABETIC FOOT CARE PRN. RN/REGISTRATION SCHEDULING SPECIALIST/EATING DISORDER SPECIALIST TO MONITOR FOR ADHERENCE TO DIABETIC SELF-CARE AND MANAGEMENT INCLUDING MEDICATIONS. [code = DIABETES MONITORING RN/REGISTRATION SCHEDULING SPECIALIST/EATING DISORDER SPECIALIST TO MONITOR BLOOD SUGAR LOG FOR BLOOD SUGAR READINGS THAT ARE BEING CHECKED BY PATIENT, CAREGIVER NEEDED FOR SIGNS AND SYMPTOMS OF HYPER/HYPOGLYCEMIA. PATIENT THERAPEUTIC BLOOD SUGAR PARAMETERS ARE 70 - 300. REPORT BLOOD SUGARS OUT OF RANGE TO PHYSICIAN. NURSE MAY PERFORM FINGER STICK BLOOD GLUCOSE NEEDED FOR SIGNS AND SYMPTOMS OF HYPO AND HYPERGLYCEMIA. RN/REGISTRATION SCHEDULING SPECIALIST/EATING DISORDER SPECIALIST TO MONITOR ADHERENCE OF PATIENT/CAREGIVER PERFORMING DIABETIC FOOT CARE AND MAY PERFORM DIABETIC FOOT CARE PRN. RN/REGISTRATION SCHEDULING SPECIALIST/EATING DISORDER SPECIALIST TO MONITOR FOR ADHERENCE TO DIABETIC SELF-CARE AND MANAGEMENT INCLUDING MEDICATIONS.] Future Scheduled Test HYPOTENSIO N MANAGEMENT; RN TO ASSESS AND TEACH/ EATING DISORDER SPECIALIST /REGISTRATION SCHEDULING SPECIALIST TO OBSERVE AND TEACH WARNING SIGNS AND SYMPTOMS TO AVOID HOSPITALIZATION. [code = HYPOTENSION MANAGEMENT; RN TO ASSESS AND TEACH/ EATING DISORDER SPECIALIST /REGISTRATION SCHEDULING SPECIALIST TO OBSERVE AND TEACH WARNING SIGNS AND SYMPTOMS TO AVOID HOSPITALIZATION.] Future Scheduled Test ARRHYTHMIA MANAGEMENT; RN TO ASSESS AND TEACH, EATING DISORDER SPECIALIST/REGISTRATION SCHEDULING SPECIALIST TO OBSERVE AND TEACH WARNING SIGNS AND SYMPTOMS TO AVOID HOSPITALIZATION. [code = ARRHYTHMIA MANAGEMENT; RN TO ASSESS AND TEACH, EATING DISORDER SPECIALIST/REGISTRATION SCHEDULING SPECIALIST TO OBSERVE AND TEACH WARNING SIGNS AND SYMPTOMS TO AVOID HOSPITALIZATION.] Future Scheduled Test MEDICATION MANAGEMENT; RN/EATING DISORDER SPECIALIST/REGISTRATION SCHEDULING SPECIALIST TO REVIEW MEDICATIONS FOR INTERACTIONS, EFFECTIVENESS OF DRUG THERAPY, AND SIGNS/SYMPTOMS OF ADVERSE REACTIONS. MAY INSTRUCT AND REINFORCE MEDICATION TEACHING RELATED TO THE USE OF MEDICATIONS, DOSAGE, FREQUENCY, PURPOSE, SIDE EFFECTS, AND TO REPORT COMPLICATIONS. [code = MEDICATION MANAGEMENT; RN/EATING DISORDER SPECIALIST/REGISTRATION SCHEDULING SPECIALIST TO REVIEW MEDICATIONS FOR INTERACTIONS, EFFECTIVENESS [...] EVAL UATE, OBSERVE / ASSESS, AND MONITOR, SEBD TEACHER TO OBSERVE AND MONITOR, PROVIDE SKILLED THERAPEUTIC INTERVENTION, ACTIVITY, EDUCATION, AND TRAINING TO ADDRESS GEN. WEAKNESS, POOR OVERALL ACTIVITY TOLERANCE, AND FUNCTIONAL LIMITATIONS IMPACTING SAFETY AND INDEPENDENCE. BED MOBILITY (PT/SEBD TEACHER) PT/SEBD TEACHER TO PROVIDE GAIT TRAINING FOR IMPROVED MOBILITY AND /OR TO NORMALIZE GAIT PATTERN THERAPEUTIC EXERCISES AND ESTABLISHING A HOME EXERCISE PROGRAM (PT/SEBD TEACHER) PT/SEBD TEACHER TO PROVIDE STAIR TRAINING PT / SEBD TEACHER TO MONITOR AND EDUCATE ON OXYGEN SATURATION DURING ADLS/IADLS, NOTIFY PHYSICIAN AND/OR THE RN CLINICAL CLAY MINER FOR PHYSICIAN NOTIFICATION AND IF O2 SATS BELOW PHYSICIAN ORDERED PARAMETERS AFTER 10 MIN OF REST PT / SEBD TEACHER TO OBSERVE FOR EARLY SIGNS AND SYMPTOMS OF DEPRESSION OR DEPRESSION GETTING WORSE AND TO EDUCATE ON HOW TO FIND HELP. PT / SEBD TEACHER MAY EDUCATE ON PAIN MANAGEMENT CLINICALLY INDICATED, INCLUDING NON-PHARMACOLOGICAL PAIN REDUCTION TECHNIQUES PT / SEBD TEACHER TO MONITOR FOR HYPO/HYPERGLYCEMIA AND CONDUCT ROUTINE FOOT INSPECTIONS. RECORD PATIENT REPORTED BLOOD SUGAR LEVELS AND NOTIFY PHYSICIAN AND/OR THE RN CLINICAL CLAY MINER FOR PHYSICIAN NOTIFICATION IF BLOOD SUGAR LEVELS ARE OUTSIDE ORDERED PARAMETERS. TEACH PATIENT/CAREGIVER ON DAILY FOOT INSPECTIONS PT / SEBD TEACHER TO INSTRUCT PATIENT/CAREGIVER ON RISK FOR HOSPITALIZATION/EMERGENCY ROOM VISITS, TEACH SIGNS AND SYMPTOMS THAT PUT PATIENT AT RISK, WHEN TO NOTIFY NURSE/PHYSICIAN OF COMPLICATIONS/DECLINE, AND WHEN TO CALL 911. PT/SEBD TEACHER TO EDUCATE ON ARTHRITIS SELF-MANAGEMENT PT / SEBD TEACHER TO EDUCATE ON HEART FAILURE SELF-MANAGEMENT PT / SEBD TEACHER TO EDUCATE ON HYPERTENSION SELF-MANAGEMENT PT TO ASSESS / SEBD TEACHER TO MONITOR CARDIO/RESPIRATORY SYSTEM; AND NOTIFY THE PHYSICIAN AND/OR THE RN CLINICAL CLAY MINER FOR PHYSICIAN NOTIFICATION FOR EARLY SIGNS AND SYMPTOMS OF EXACERBATION OR DETERIORATION. PT / SEBD TEACHER TO EDUCATE ON ATRIAL FIBRILLATION SELF-MANAGEMENT. PT / SEBD TEACHER TO EDUCATE ON PNEUMONIA / ASPIRATION PNEUMONIA SELF-MANAGEMENT. PT/SEBD TEACHER TO IDENTIFY FALL RISK FACTORS; EDUCATE THE PATIENT/CAREGIVER ON WAYS TO REDUCE FALL RISK FACTORS AND ESTABLISH HOME EXERCISE PROGRAM TO MINIMIZE FALL RISK. MAY TEACH THE PATIENT FLOOR RECOVERY WHEN CLINICALLY APPROPRIATE [code = PT TO EVALUATE, OBSERVE / ASSESS, AND MONITOR, SEBD TEACHER TO OBSERVE AND MONITOR, PROVIDE SKILLED THERAPEUTIC INTERVENTION, ACTIVITY, EDUCATION, AND TRAINING TO ADDRESS GEN. WEAKNESS, POOR OVERALL ACTIVITY TOLERANCE, AND FUNCTIONAL LIMITATIONS IMPACTING SAFETY AND INDEPENDENCE. BED MOBILITY (PT/SEBD TEACHER) PT/SEBD TEACHER TO PROVIDE GAIT TRAINING FOR IMPROVED MOBILITY AND /OR TO NORMALIZE GAIT PATTERN THERAPEUTIC EXERCISES AND ESTABLISHING A HOME EXERCISE PROGRAM (PT/SEBD TEACHER) PT/SEBD TEACHER TO PROVIDE STAIR TRAINING PT / SEBD TEACHER TO MONITOR AND EDUCATE ON OXYGEN SATURATION DURING ADLS/IADLS, NOTIFY PHYSICIAN AND/OR THE RN CLINICAL CLAY MINER FOR PHYSICIAN NOTIFICATION AND IF O2 SATS BELOW PHYSICIAN ORDERED PARAMETERS AFTER 10 MIN OF REST PT / SEBD TEACHER TO OBSERVE FOR EARLY SIGNS AND SYMPTOMS OF DEPRESSION OR DEPRESSION GETTING WORSE AND TO EDUCATE ON HOW TO FIND HELP. PT / SEBD TEACHER MAY EDUCATE ON PAIN MANAGEMENT CLINICALLY INDICATED, INCLUDING NON-PHARMACOLOGICAL PAIN REDUCTION TECHNIQUES PT / SEBD TEACHER TO MONITOR FOR HYPO/HYPERGLYCEMIA AND CONDUCT ROUTINE FOOT INSPECTIONS. RECORD PATIENT REPORTED BLOOD SUGAR LEVELS AND NOTIFY PHYSICIAN AND/OR THE RN CLINICAL CLAY MINER FOR PHYSICIAN NOTIFICATION IF BLOOD SUGAR LEVELS ARE OUTSIDE ORDERED PARAMETERS. TEACH PATIENT/CAREGIVER ON DAILY FOOT INSPECTIONS PT / SEBD TEACHER TO INSTRUCT PATIENT/CAREGIVER ON RISK FOR HOSPITALIZATION/EMERGENCY ROOM VISITS, TEACH SIGNS AND SYMPTOMS THAT PUT PATIENT AT RISK, WHEN TO NOTIFY NURSE/PHYSICIAN OF COMPLICATIONS/DECLINE, AND WHEN TO CALL 911. PT/SEBD TEACHER TO EDUCATE ON ARTHRITIS SELF-MANAGEMENT PT / SEBD TEACHER TO EDUCATE ON HEART FAILURE SELF-MANAGEMENT PT / SEBD TEACHER TO EDUCATE ON HYPERTENSION SELF-MANAGEMENT PT TO ASSESS / SEBD TEACHER TO MONITOR CARDIO/RESPIRATORY SYSTEM; AND NOTIFY THE PHYSICIAN AND/OR THE RN CLINICAL CLAY MINER FOR PHYSICIAN NOTIFICATION FOR EARLY SIGNS AND SYMPTOMS OF EXACERBATION OR DETERIORATION. PT / SEBD TEACHER TO EDUCATE ON ATRIAL FIBRILLATION SELF-MANAGEMENT. PT / SEBD TEACHER TO EDUCATE ON PNEUMONIA / ASPIRATION PNEUMONIA SELF-MANAGEMENT. PT/SEBD TEACHER TO IDENTIFY FALL RISK FACTORS; EDUCATE THE PATIENT/CAREGIVER ON WAYS TO REDUCE FALL RISK FACTORS AND ESTABLISH HOME EXERCISE PROGRAM TO MINIMIZE FALL RISK. MAY TEACH THE PATIENT FLOOR RECOVERY WHEN CLINICALLY APPROPRIATE] Future Scheduled Test AGENCY MAY PERFORM A RESUMPTION OF CARE VISIT FOLLOWING ANY HOSPITAL ADMISSION. OT TO EVALUATE, OBSERVE / ASSESS, AND MONITOR, MOID MIDDLE SCHOOL TEACHER TO OBSERVE AND MONITOR, PROVIDE SKILLED THERAPEUTIC INTERVENTION, ACTIVITY, EDUCATION, AND TRAINING TO ADDRESS SAFETY AND INDEPENDENCE OF ADLS AND FUNCTIONAL TRANSFERS IN HOME ENVIRONMENT. ACTIVITIES OF DAILY LIVING (OT/MARIANNE) THERAPEUTIC EXERCISE (OT/MOID MIDDLE SCHOOL TEACHER) ENERGY CONSERVATION/ACTIVITY DEMAND (OT/MOID MIDDLE SCHOOL TEACHER) OT/MOID MIDDLE SCHOOL TEACHER TO MONITOR AND EDUCATE ON OXYGEN SATURATION DURING ADLS/IADLS, NOTIFY PHYSICIAN AND/OR THE RN CLINICAL CLAY MINER FOR PHYSICIAN NOTIFICATION AND IF O2 SATS BELOW 90% AFTER 10 MIN OF REST. OT / MOID MIDDLE SCHOOL TEACHER TO IDENTIFY FALL RISK FACTORS; EDUCATE THE PATIENT/CAREGIVER ON WAYS TO REDUCE FALL RISK FACTORS AND ESTABLISH HOME EXERCISE PROGRAM TO MINIMIZE FALL RISK. MAY TEACH THE PATIENT FLOOR RECOVERY WHEN CLINICALLY APPROPRIATE. OT/MOID MIDDLE SCHOOL TEACHER TO EDUCATE ON HYPERTENSION SELF-MANAGEMENT OT/MARIANNE TO EDUCATE ON ATRIAL FIBRILLATION SELF-MANAGEMENT. [code = AGENCY MAY PERFORM A RESUMPTION OF CARE VISIT FOLLOWING ANY HOSPITAL ADMISSION. OT TO EVALUATE, OBSERVE / ASSESS, AND MONITOR, MOID MIDDLE SCHOOL TEACHER TO OBSERVE AND MONITOR, PROVIDE SKILLED THERAPEUTIC INTERVENTION, ACTIVITY, EDUCATION, AND TRAINING TO ADDRESS SAFETY AND INDEPENDENCE OF ADLS AND FUNCTIONAL TRANSFERS IN HOME ENVIRONMENT. ACTIVITIES OF DAILY LIVING (OT/MARIANNE) THERAPEUTIC EXERCISE (OT/MOID MIDDLE SCHOOL TEACHER) ENERGY CONSERVATION/ACTIVITY DEMAND (OT/MARIANNE) OT/MOID MIDDLE SCHOOL TEACHER TO MONITOR AND EDUCATE ON OXYGEN SATURATION DURING ADLS/IADLS, NOTIFY PHYSICIAN AND/OR THE RN CLINICAL CLAY MINER FOR PHYSICIAN NOTIFICATION AND IF O2 SATS BELOW 90% AFTER 10 MIN OF REST. OT / MARIANNE TO IDENTIFY FALL RISK FACTORS; EDUCATE THE PATIENT/CAREGIVER ON WAYS TO REDUCE FALL RISK FACTORS AND ESTABLISH HOME EXERCISE PROGRAM TO MINIMIZE FALL RISK. MAY TEACH THE PATIENT FLOOR RECOVERY WHEN CLINICALLY APPROPRIATE. OT/MOID MIDDLE SCHOOL TEACHER TO EDUCATE ON HYPERTENSION SELF-MANAGEMENT OT/MARIANNE [...] OF SKIN INTEGRITY ISSUES FROM [place] WITHIN 2 WKS. PT STG: PATIENT WILL [...] TO SAFELY NEGOTIATE STAIRS FROM [place] WITH 2 STEPS W/O HANDRAIL VIA FRONT [...] Outpatient NEW ADMISSION [facility] [id number]
--- OUTSIDE RECORDS SUMMARY | 2025-04-06 18:00 | XMS_ITS | Clinical Summary ---
Author Organization Unknown Care Team Providers Care Dcs Engineer Name Role Phone DIGNA ARIEL, ESTRELLA Unavailable Unava dinora STOKES RN, FRANKIE Unavailable Unavailabl e KARI PT, DIDI Unavailable Unavailable NAT SURVEYING OR SPATIAL SCIENCE TECHNICIAN, GAUDENCIO Unavailable Unavailabl e RADHA OT, ROLANDO Unavailable Unavailable JOANNE STEVEN, HATTIE Unavailable Unavailable Payers Payer Name Policy Type Policy Number Effective Date Expira tion Date MEDICARE.[facility] [id number] Problems Condition Name Condition Details Condition Category Status Onset Date Resolution Date Last Treatment Date Treating Clinician Comments 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 02-07 [...] OF PNEUMONIA (RECURRENT) Active 02-07 00:00: 00 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 STEROIDS Active [...] 80 mg tablet 02-07 00:00: 00 Yes [id number] CHOLESTEROL 1 tablet DAILY 1 tablet DAILY (route: oral) Med Classific ation: Cardiovas cular Therapy Agents digoxin 125 mcg (0.125 mg) tablet 02-07 00:00: 00 02-21 23:59 :00 No [id number] HEART RHYTHM 1 tablet DAILY 1 tablet DAILY (route: oral) Med Classific ation: Cardiovas cular Therapy Agents escitalopra m 10 mg tablet 02-07 00:00: 00 Yes [id number] MOOD 1 tablet DAILY 1 tablet DAILY (route: oral) Med Classific ation: Central Nervous System Agents ezetimibe 10 mg tablet 02-07 00:00: 00 Yes [id number] CHOLESTEROL 1 tablet DAILY 1 tablet DAILY (route: oral) Med Classific ation: Cardiovas cular Therapy Agents metoprolol succinate ER 25 mg tablet,exte nded release 24 hr 02-07 00:00: 00 02-21 23:59 :00 No [id number] BLOOD PRESSURE 0.5 tablet DAILY 0.5 tablet DAILY (route: oral) Med Classific ation: Cardiovas cular Therapy Agents pantoprazol e 40 mg tablet,joão yed release 02-07 00:00: 00 02-21 23:59 :00 No [id number] STOMACH ACID 1 tablet DAILY 1 tablet DAILY (route: oral) Med Classific ation: Gastroint estinal Therapy Agents prednisone 5 mg tablet 02-07 00:00: 00 Yes [id number] ADRENAL INSUFFICIEN CY 1 tablet DAILY 1 tablet DAILY (route: oral) Med Classific ation: Endocrine spironolact one 25 mg tablet 02-07 00:00: 00 Yes [id number] FLUID RETENTION 0.5 tablet DAILY 0.5 tablet DAILY (route: oral) Med Classific ation: Cardiovas cular Therapy Agents tamsulosin 0.4 mg capsule 02-07 00:00: 00 02-21 23:59 :00 No [id number] URINARY HEALTH 1 capsule DAILY 1 capsule DAILY (route: oral) Med Classific ation: Genitouri nary Therapy acetaminoph en 325 mg tablet 2024-05 00:00: 00 Yes [id number] PAIN 2 tablet 2 TIMES DAILY 2 tablet 2 TIMES DAILY (route: oral) Med Classific ation: Analgesic , Anti-infl ammatory or Antipyret ic aspirin 81 mg tablet 2024-05 00:00: 00 Yes [id number] ANTICOAGULA NT 1 tablet DAILY 1 tablet DAILY (route: oral) Med Classific ation: Hematolog ical Agents ipratropium 0.5 mg-albutero l 3 mg (2.5 mg base)/3 mL nebulizatio n soln 2024-05 00:00: 00 Yes [id number] COPD 3 mL EVERY 6 HOURS 3 mL EVERY 6 HOURS (route: inhalation ) Med Classific ation: Respirato ry Therapy Agents Lanoxin 62.5 mcg (0.0625 mg) tablet 2024-05 00:00: 00 Yes [id number] CHF 1 tablet DAILY 1 tablet DAILY (route: oral) Med Classific ation: Cardiovas cular Therapy Agents Lasix 20 mg tablet 2024-05 00:00: 00 Yes [id number] CHF 1 tablet DAILY 1 tablet DAILY (route: oral) Med Classific ation: Cardiovas cular Therapy Agents Toprol XL 25 mg tablet,exte nded release 2024-05 00:00: 00 Yes [id number] BP 25 mg DAILY 25 mg DAILY [...] SYSTEM MANAGEMENT; RN TO ASSESS AND TEACH, ELECTRICAL SIGN WIRER/COMMERCIAL SEWING INSTRUCTOR TO OBSERVE AND TEACH RELATED TO ALTERED RESPIRATORY STATUS TO MINIMIZE COMPLICATIONS AND REDUCE HOSPITALIZATION. [code = SN 1WK9 PT 1WK1 OT EFFECTIVE 02/10/2025K1 RESPIRATORY SYSTEM MANAGEMENT; RN TO ASSESS AND TEACH, ELECTRICAL SIGN WIRER/COMMERCIAL SEWING INSTRUCTOR TO OBSERVE AND TEACH RELATED TO ALTERED RESPIRATORY STATUS TO MINIMIZE COMPLICATIONS AND REDUCE HOSPITALIZATION.] Future Scheduled Test TRACHEOSTO MY CARE MANAGEMENT; RN/ELECTRICAL SIGN WIRER/COMMERCIAL SEWING INSTRUCTOR TO INSTRUCT PATIENT/CAREGIVER ON CARE AND MANAGEMENT OF TRACHEOSTOMY. RN/ ELECTRICAL SIGN WIRER/COMMERCIAL SEWING INSTRUCTOR TO PROVIDE SKILLED TEACHING ON TRACH COLLAR SUCTIONING PRN WITH 14 FR SUCTION CATHETER PER PATIENT TRACH CARE WITH INNER CANNULA: REMOVE INNER CANNULA, CLEANSE WITH NORMAL SALINE AND OR STERILE WATER AND REINSERT NON-DISPOSABLE CANNULA SIZE OF INNER CANNULA 5 BROOKS [code = TRACHEOSTOMY CARE MANAGEMENT; RN/ELECTRICAL SIGN WIRER/COMMERCIAL SEWING INSTRUCTOR TO INSTRUCT PATIENT/CAREGIVER ON CARE AND MANAGEMENT OF TRACHEOSTOMY. RN/ ELECTRICAL SIGN WIRER/COMMERCIAL SEWING INSTRUCTOR TO PROVIDE SKILLED TEACHING ON TRACH COLLAR SUCTIONING PRN WITH 14 FR SUCTION CATHETER PER PATIENT TRACH CARE WITH INNER CANNULA: REMOVE INNER CANNULA, CLEANSE WITH NORMAL SALINE AND OR STERILE WATER AND REINSERT NON-DISPOSABLE CANNULA SIZE OF INNER CANNULA 5 BROOKS] Future Scheduled Test FALL REDUC TION MANAGEMENT; RN TO ASSESS AND OBSERVE, ELECTRICAL SIGN WIRER/COMMERCIAL SEWING INSTRUCTOR TO OBSERVE FALL RISK FACTORS AND EDUCATE PATIENT/CAREGIVER ON STRATEGIES TO MINIMIZE THE RISK OF FALLING. [code = FALL REDUCTION MANAGEMENT; RN TO ASSESS AND OBSERVE, ELECTRICAL SIGN WIRER/COMMERCIAL SEWING INSTRUCTOR TO OBSERVE FALL RISK FACTORS AND EDUCATE PATIENT/CAREGIVER ON STRATEGIES TO MINIMIZE THE RISK OF FALLING.] Future Scheduled Test ANEMIA MAN AGEMENT; RN TO ASSESS AND TEACH, COMMERCIAL SEWING INSTRUCTOR/ELECTRICAL SIGN WIRER TO OBSERVE AND TEACH AND PROVIDE EDUCATION ON ANEMIA. [code = ANEMIA MANAGEMENT; RN TO ASSESS AND TEACH, COMMERCIAL SEWING INSTRUCTOR/ELECTRICAL SIGN WIRER TO OBSERVE AND TEACH AND PROVIDE EDUCATION ON ANEMIA.] Future Scheduled Test RN TO OBSE RVE, ASSESS, EVALUATE, AND DEVELOP AN INDIVIDUALIZED PLAN OF CARE. AGENCY MAY ACCEPT ORDERS FROM CONSULTING PHYSICIANS RN TO OBSERVE AND ASSESS, ELECTRICAL SIGN WIRER/COMMERCIAL SEWING INSTRUCTOR TO OBSERVE FOR RISK FOR FALLS AND INSTRUCT IN FALL PREVENTION, HOME SAFETY, MEDICATION MANAGEMENT, INFECTION PREVENTION, AND NUTRITION MANAGEMENT. RN/ELECTRICAL SIGN WIRER/COMMERCIAL SEWING INSTRUCTOR NURSE MAY PERFORM O2 SATURATION LEVEL ON ADMISSION AND PRN FOR RN TO ASSESS/ELECTRICAL SIGN WIRER TO OBSERVE PATIENT, WITH NOTIFICATION TO THE PHYSICIAN IF SATURATION IS 90% IN THE ABSENCE OF MORE SPECIFIC PARAMETERS FROM THE PHYSICIAN. AGENCY MAY PERFORM A RESUMPTION OF CARE VISIT FOLLOWING ANY HOSPITAL ADMISSION. RN/ELECTRICAL SIGN WIRER/COMMERCIAL SEWING INSTRUCTOR TO MONITOR CO-MORBID CONDITIONS LISTED ON THE PLAN OF CARE AND ANY NEW CONDITIONS THAT PRESENT THEMSELVES DURING THIS EPISODE TO IDENTIFY CHANGES AND INTERVENE TO MINIMIZE COMPLICATIONS. [code = RN TO OBSERVE, ASSESS, EVALUATE, AND DEVELOP AN INDIVIDUALIZED PLAN OF CARE. AGENCY MAY ACCEPT ORDERS FROM CONSULTING PHYSICIANS RN TO OBSERVE AND ASSESS, ELECTRICAL SIGN WIRER/COMMERCIAL SEWING INSTRUCTOR TO OBSERVE FOR RISK FOR FALLS AND INSTRUCT IN FALL PREVENTION, HOME SAFETY, MEDICATION MANAGEMENT, INFECTION PREVENTION, AND NUTRITION MANAGEMENT. RN/ELECTRICAL SIGN WIRER/COMMERCIAL SEWING INSTRUCTOR NURSE MAY PERFORM O2 SATURATION LEVEL ON ADMISSION AND PRN FOR RN TO ASSESS/ELECTRICAL SIGN WIRER TO OBSERVE PATIENT, WITH NOTIFICATION TO THE PHYSICIAN IF SATURATION IS 90% IN THE ABSENCE OF MORE SPECIFIC PARAMETERS FROM THE PHYSICIAN. AGENCY MAY PERFORM A RESUMPTION OF CARE VISIT FOLLOWING ANY HOSPITAL ADMISSION. RN/ELECTRICAL SIGN WIRER/COMMERCIAL SEWING INSTRUCTOR TO MONITOR CO-MORBID CONDITIONS LISTED ON THE PLAN OF CARE AND ANY NEW CONDITIONS THAT PRESENT THEMSELVES DURING THIS EPISODE TO IDENTIFY CHANGES AND INTERVENE TO MINIMIZE COMPLICATIONS.] Future Scheduled Test PAIN MANAG EMENT; RN TO ASSESS AND TEACH, COMMERCIAL SEWING INSTRUCTOR/ELECTRICAL SIGN WIRER TO OBSERVE AND TEACH AND PROVIDE EDUCATION ON PAIN MANAGEMENT TECHNIQUES. [code = PAIN MANAGEMENT; RN TO ASSESS AND TEACH, COMMERCIAL SEWING INSTRUCTOR/ELECTRICAL SIGN WIRER TO OBSERVE AND TEACH AND PROVIDE EDUCATION ON PAIN MANAGEMENT TECHNIQUES.] Future Scheduled Test RISK FOR H OSPITALIZATION; RN TO ASSESS/TEACH, COMMERCIAL SEWING INSTRUCTOR/ELECTRICAL SIGN WIRER TO OBSERVE/TEACH PATIENT/CAREGIVER ON RISK FOR HOSPITALIZATION/EMERGENCY ROOM VISITS, TEACH SIGNS AND SYMPTOMS THAT PUT PATIENT AT RISK, WHEN TO NOTIFY NURSE/PHYSICIAN OF COMPLICATIONS/DECLINE, AND WHEN TO CALL 911. [code = RISK FOR HOSPITALIZATION; RN TO ASSESS/TEACH, COMMERCIAL SEWING INSTRUCTOR/ELECTRICAL SIGN WIRER TO OBSERVE/TEACH PATIENT/CAREGIVER ON RISK FOR HOSPITALIZATION/EMERGENCY ROOM VISITS, TEACH SIGNS AND SYMPTOMS THAT PUT PATIENT AT RISK, WHEN TO NOTIFY NURSE/PHYSICIAN OF COMPLICATIONS/DECLINE, AND WHEN TO CALL 911.] Future Scheduled Test CARDIOVASC ULAR SYSTEM; RN TO ASSESS/TEACH, ELECTRICAL SIGN WIRER/COMMERCIAL SEWING INSTRUCTOR TO OBSERVE/TEACH RELATED TO ALTERED CARDIOVASCULAR STATUS TO MINIMIZE COMPLICATIONS AND REDUCE HOSPITALIZATION. [code = CARDIOVASCULAR SYSTEM; RN TO ASSESS/TEACH, ELECTRICAL SIGN WIRER/COMMERCIAL SEWING INSTRUCTOR TO OBSERVE/TEACH RELATED TO ALTERED CARDIOVASCULAR STATUS TO MINIMIZE COMPLICATIONS AND REDUCE HOSPITALIZATION.] Future Scheduled Test HYPERTENSI ON MANAGEMENT; RN TO ASSESS AND TEACH, ELECTRICAL SIGN WIRER/COMMERCIAL SEWING INSTRUCTOR TO OBSERVE AND TEACH WARNING SIGNS AND SYMPTOMS TO AVOID HOSPITALIZATION. [code = HYPERTENSION MANAGEMENT; RN TO ASSESS AND TEACH, ELECTRICAL SIGN WIRER/COMMERCIAL SEWING INSTRUCTOR TO OBSERVE AND TEACH WARNING SIGNS AND SYMPTOMS TO AVOID HOSPITALIZATION.] Future Scheduled Test HEART FAIL URE MONITORING RN/COMMERCIAL SEWING INSTRUCTOR/ELECTRICAL SIGN WIRER TO MONITOR PATIENT FOR SIGNS AND SYMPTOMS OF HEART FAILURE EXACERBATION, MONITOR FOR ADHERENCE WITH MEDICATION AND HEART FAILURE MANAGEMENT REGIMEN. [code = HEART FAILURE MONITORING RN/COMMERCIAL SEWING INSTRUCTOR/ELECTRICAL SIGN WIRER TO MONITOR PATIENT FOR SIGNS AND SYMPTOMS OF HEART FAILURE EXACERBATION, MONITOR FOR ADHERENCE WITH MEDICATION AND HEART FAILURE MANAGEMENT REGIMEN.] Future Scheduled Test DIABETES M ONITORING RN/COMMERCIAL SEWING INSTRUCTOR/ELECTRICAL SIGN WIRER TO MONITOR BLOOD SUGAR LOG FOR BLOOD SUGAR READINGS THAT ARE BEING CHECKED BY PATIENT, CAREGIVER NEEDED FOR SIGNS AND SYMPTOMS OF HYPER/HYPOGLYCEMIA. PATIENT THERAPEUTIC BLOOD SUGAR PARAMETERS ARE 70 - 300. REPORT BLOOD SUGARS OUT OF RANGE TO PHYSICIAN. NURSE MAY PERFORM FINGER STICK BLOOD GLUCOSE NEEDED FOR SIGNS AND SYMPTOMS OF HYPO AND HYPERGLYCEMIA. RN/COMMERCIAL SEWING INSTRUCTOR/ELECTRICAL SIGN WIRER TO MONITOR ADHERENCE OF PATIENT/CAREGIVER PERFORMING DIABETIC FOOT CARE AND MAY PERFORM DIABETIC FOOT CARE PRN. RN/COMMERCIAL SEWING INSTRUCTOR/ELECTRICAL SIGN WIRER TO MONITOR FOR ADHERENCE TO DIABETIC SELF-CARE AND MANAGEMENT INCLUDING MEDICATIONS. [code = DIABETES MONITORING RN/COMMERCIAL SEWING INSTRUCTOR/ELECTRICAL SIGN WIRER TO MONITOR BLOOD SUGAR LOG FOR BLOOD SUGAR READINGS THAT ARE BEING CHECKED BY PATIENT, CAREGIVER NEEDED FOR SIGNS AND SYMPTOMS OF HYPER/HYPOGLYCEMIA. PATIENT THERAPEUTIC BLOOD SUGAR PARAMETERS ARE 70 - 300. REPORT BLOOD SUGARS OUT OF RANGE TO PHYSICIAN. NURSE MAY PERFORM FINGER STICK BLOOD GLUCOSE NEEDED FOR SIGNS AND SYMPTOMS OF HYPO AND HYPERGLYCEMIA. RN/COMMERCIAL SEWING INSTRUCTOR/ELECTRICAL SIGN WIRER TO MONITOR ADHERENCE OF PATIENT/CAREGIVER PERFORMING DIABETIC FOOT CARE AND MAY PERFORM DIABETIC FOOT CARE PRN. RN/COMMERCIAL SEWING INSTRUCTOR/ELECTRICAL SIGN WIRER TO MONITOR FOR ADHERENCE TO DIABETIC SELF-CARE AND MANAGEMENT INCLUDING MEDICATIONS.] Future Scheduled Test HYPOTENSIO N MANAGEMENT; RN TO ASSESS AND TEACH/ ELECTRICAL SIGN WIRER /COMMERCIAL SEWING INSTRUCTOR TO OBSERVE AND TEACH WARNING SIGNS AND SYMPTOMS TO AVOID HOSPITALIZATION. [code = HYPOTENSION MANAGEMENT; RN TO ASSESS AND TEACH/ ELECTRICAL SIGN WIRER /COMMERCIAL SEWING INSTRUCTOR TO OBSERVE AND TEACH WARNING SIGNS AND SYMPTOMS TO AVOID HOSPITALIZATION.] Future Scheduled Test ARRHYTHMIA MANAGEMENT; RN TO ASSESS AND TEACH, ELECTRICAL SIGN WIRER/COMMERCIAL SEWING INSTRUCTOR TO OBSERVE AND TEACH WARNING SIGNS AND SYMPTOMS TO AVOID HOSPITALIZATION. [code = ARRHYTHMIA MANAGEMENT; RN TO ASSESS AND TEACH, ELECTRICAL SIGN WIRER/COMMERCIAL SEWING INSTRUCTOR TO OBSERVE AND TEACH WARNING SIGNS AND SYMPTOMS TO AVOID HOSPITALIZATION.] Future Scheduled Test MEDICATION MANAGEMENT; RN/ELECTRICAL SIGN WIRER/COMMERCIAL SEWING INSTRUCTOR TO REVIEW MEDICATIONS FOR INTERACTIONS, EFFECTIVENESS OF DRUG THERAPY, AND SIGNS/SYMPTOMS OF ADVERSE REACTIONS. MAY INSTRUCT AND REINFORCE MEDICATION TEACHING RELATED TO THE USE OF MEDICATIONS, DOSAGE, FREQUENCY, PURPOSE, SIDE EFFECTS, AND TO REPORT COMPLICATIONS. [code = MEDICATION MANAGEMENT; RN/ELECTRICAL SIGN WIRER/COMMERCIAL SEWING INSTRUCTOR TO REVIEW MEDICATIONS FOR INTERACTIONS, EFFECTIVENESS [...] EVAL UATE, OBSERVE / ASSESS, AND MONITOR, SURVEYING OR SPATIAL SCIENCE TECHNICIAN TO OBSERVE AND MONITOR, PROVIDE SKILLED THERAPEUTIC INTERVENTION, ACTIVITY, EDUCATION, AND TRAINING TO ADDRESS GEN. WEAKNESS, POOR OVERALL ACTIVITY TOLERANCE, AND FUNCTIONAL LIMITATIONS IMPACTING SAFETY AND INDEPENDENCE. BED MOBILITY (PT/SURVEYING OR SPATIAL SCIENCE TECHNICIAN) PT/SURVEYING OR SPATIAL SCIENCE TECHNICIAN TO PROVIDE GAIT TRAINING FOR IMPROVED MOBILITY AND /OR TO NORMALIZE GAIT PATTERN THERAPEUTIC EXERCISES AND ESTABLISHING A HOME EXERCISE PROGRAM (PT/SURVEYING OR SPATIAL SCIENCE TECHNICIAN) PT/SURVEYING OR SPATIAL SCIENCE TECHNICIAN TO PROVIDE STAIR TRAINING PT / SURVEYING OR SPATIAL SCIENCE TECHNICIAN TO MONITOR AND EDUCATE ON OXYGEN SATURATION DURING ADLS/IADLS, NOTIFY PHYSICIAN AND/OR THE RN CLINICAL CORPORATE SALES MANAGER FOR PHYSICIAN NOTIFICATION AND IF O2 SATS BELOW PHYSICIAN ORDERED PARAMETERS AFTER 10 MIN OF REST PT / SURVEYING OR SPATIAL SCIENCE TECHNICIAN TO OBSERVE FOR EARLY SIGNS AND SYMPTOMS OF DEPRESSION OR DEPRESSION GETTING WORSE AND TO EDUCATE ON HOW TO FIND HELP. PT / SURVEYING OR SPATIAL SCIENCE TECHNICIAN MAY EDUCATE ON PAIN MANAGEMENT CLINICALLY INDICATED, INCLUDING NON-PHARMACOLOGICAL PAIN REDUCTION TECHNIQUES PT / SURVEYING OR SPATIAL SCIENCE TECHNICIAN TO MONITOR FOR HYPO/HYPERGLYCEMIA AND CONDUCT ROUTINE FOOT INSPECTIONS. RECORD PATIENT REPORTED BLOOD SUGAR LEVELS AND NOTIFY PHYSICIAN AND/OR THE RN CLINICAL CORPORATE SALES MANAGER FOR PHYSICIAN NOTIFICATION IF BLOOD SUGAR LEVELS ARE OUTSIDE ORDERED PARAMETERS. TEACH PATIENT/CAREGIVER ON DAILY FOOT INSPECTIONS PT / SURVEYING OR SPATIAL SCIENCE TECHNICIAN TO INSTRUCT PATIENT/CAREGIVER ON RISK FOR HOSPITALIZATION/EMERGENCY ROOM VISITS, TEACH SIGNS AND SYMPTOMS THAT PUT PATIENT AT RISK, WHEN TO NOTIFY NURSE/PHYSICIAN OF COMPLICATIONS/DECLINE, AND WHEN TO CALL 911. PT/SURVEYING OR SPATIAL SCIENCE TECHNICIAN TO EDUCATE ON ARTHRITIS SELF-MANAGEMENT PT / SURVEYING OR SPATIAL SCIENCE TECHNICIAN TO EDUCATE ON HEART FAILURE SELF-MANAGEMENT PT / SURVEYING OR SPATIAL SCIENCE TECHNICIAN TO EDUCATE ON HYPERTENSION SELF-MANAGEMENT PT TO ASSESS / SURVEYING OR SPATIAL SCIENCE TECHNICIAN TO MONITOR CARDIO/RESPIRATORY SYSTEM; AND NOTIFY THE PHYSICIAN AND/OR THE RN CLINICAL CORPORATE SALES MANAGER FOR PHYSICIAN NOTIFICATION FOR EARLY SIGNS AND SYMPTOMS OF EXACERBATION OR DETERIORATION. PT / SURVEYING OR SPATIAL SCIENCE TECHNICIAN TO EDUCATE ON ATRIAL FIBRILLATION SELF-MANAGEMENT. PT / SURVEYING OR SPATIAL SCIENCE TECHNICIAN TO EDUCATE ON PNEUMONIA / ASPIRATION PNEUMONIA SELF-MANAGEMENT. PT/SURVEYING OR SPATIAL SCIENCE TECHNICIAN TO IDENTIFY FALL RISK FACTORS; EDUCATE THE PATIENT/CAREGIVER ON WAYS TO REDUCE FALL RISK FACTORS AND ESTABLISH HOME EXERCISE PROGRAM TO MINIMIZE FALL RISK. MAY TEACH THE PATIENT FLOOR RECOVERY WHEN CLINICALLY APPROPRIATE [code = PT TO EVALUATE, OBSERVE / ASSESS, AND MONITOR, SURVEYING OR SPATIAL SCIENCE TECHNICIAN TO OBSERVE AND MONITOR, PROVIDE SKILLED THERAPEUTIC INTERVENTION, ACTIVITY, EDUCATION, AND TRAINING TO ADDRESS GEN. WEAKNESS, POOR OVERALL ACTIVITY TOLERANCE, AND FUNCTIONAL LIMITATIONS IMPACTING SAFETY AND INDEPENDENCE. BED MOBILITY (PT/SURVEYING OR SPATIAL SCIENCE TECHNICIAN) PT/SURVEYING OR SPATIAL SCIENCE TECHNICIAN TO PROVIDE GAIT TRAINING FOR IMPROVED MOBILITY AND /OR TO NORMALIZE GAIT PATTERN THERAPEUTIC EXERCISES AND ESTABLISHING A HOME EXERCISE PROGRAM (PT/SURVEYING OR SPATIAL SCIENCE TECHNICIAN) PT/SURVEYING OR SPATIAL SCIENCE TECHNICIAN TO PROVIDE STAIR TRAINING PT / SURVEYING OR SPATIAL SCIENCE TECHNICIAN TO MONITOR AND EDUCATE ON OXYGEN SATURATION DURING ADLS/IADLS, NOTIFY PHYSICIAN AND/OR THE RN CLINICAL CORPORATE SALES MANAGER FOR PHYSICIAN NOTIFICATION AND IF O2 SATS BELOW PHYSICIAN ORDERED PARAMETERS AFTER 10 MIN OF REST PT / SURVEYING OR SPATIAL SCIENCE TECHNICIAN TO OBSERVE FOR EARLY SIGNS AND SYMPTOMS OF DEPRESSION OR DEPRESSION GETTING WORSE AND TO EDUCATE ON HOW TO FIND HELP. PT / SURVEYING OR SPATIAL SCIENCE TECHNICIAN MAY EDUCATE ON PAIN MANAGEMENT CLINICALLY INDICATED, INCLUDING NON-PHARMACOLOGICAL PAIN REDUCTION TECHNIQUES PT / SURVEYING OR SPATIAL SCIENCE TECHNICIAN TO MONITOR FOR HYPO/HYPERGLYCEMIA AND CONDUCT ROUTINE FOOT INSPECTIONS. RECORD PATIENT REPORTED BLOOD SUGAR LEVELS AND NOTIFY PHYSICIAN AND/OR THE RN CLINICAL CORPORATE SALES MANAGER FOR PHYSICIAN NOTIFICATION IF BLOOD SUGAR LEVELS ARE OUTSIDE ORDERED PARAMETERS. TEACH PATIENT/CAREGIVER ON DAILY FOOT INSPECTIONS PT / SURVEYING OR SPATIAL SCIENCE TECHNICIAN TO INSTRUCT PATIENT/CAREGIVER ON RISK FOR HOSPITALIZATION/EMERGENCY ROOM VISITS, TEACH SIGNS AND SYMPTOMS THAT PUT PATIENT AT RISK, WHEN TO NOTIFY NURSE/PHYSICIAN OF COMPLICATIONS/DECLINE, AND WHEN TO CALL 911. PT/SURVEYING OR SPATIAL SCIENCE TECHNICIAN TO EDUCATE ON ARTHRITIS SELF-MANAGEMENT PT / SURVEYING OR SPATIAL SCIENCE TECHNICIAN TO EDUCATE ON HEART FAILURE SELF-MANAGEMENT PT / SURVEYING OR SPATIAL SCIENCE TECHNICIAN TO EDUCATE ON HYPERTENSION SELF-MANAGEMENT PT TO ASSESS / SURVEYING OR SPATIAL SCIENCE TECHNICIAN TO MONITOR CARDIO/RESPIRATORY SYSTEM; AND NOTIFY THE PHYSICIAN AND/OR THE RN CLINICAL CORPORATE SALES MANAGER FOR PHYSICIAN NOTIFICATION FOR EARLY SIGNS AND SYMPTOMS OF EXACERBATION OR DETERIORATION. PT / SURVEYING OR SPATIAL SCIENCE TECHNICIAN TO EDUCATE ON ATRIAL FIBRILLATION SELF-MANAGEMENT. PT / SURVEYING OR SPATIAL SCIENCE TECHNICIAN TO EDUCATE ON PNEUMONIA / ASPIRATION PNEUMONIA SELF-MANAGEMENT. PT/SURVEYING OR SPATIAL SCIENCE TECHNICIAN TO IDENTIFY FALL RISK FACTORS; EDUCATE THE PATIENT/CAREGIVER ON WAYS TO REDUCE FALL RISK FACTORS AND ESTABLISH HOME EXERCISE PROGRAM TO MINIMIZE FALL RISK. MAY TEACH THE PATIENT FLOOR RECOVERY WHEN CLINICALLY APPROPRIATE] Future Scheduled Test AGENCY MAY PERFORM A RESUMPTION OF CARE VISIT FOLLOWING ANY HOSPITAL ADMISSION. OT TO EVALUATE, OBSERVE / ASSESS, AND MONITOR, US ADMINISTRATIVE LAW JUDGE TO OBSERVE AND MONITOR, PROVIDE SKILLED THERAPEUTIC INTERVENTION, ACTIVITY, EDUCATION, AND TRAINING TO ADDRESS SAFETY AND INDEPENDENCE OF ADLS AND FUNCTIONAL TRANSFERS IN HOME ENVIRONMENT. ACTIVITIES OF DAILY LIVING (OT/MARIANNE) THERAPEUTIC EXERCISE (OT/US ADMINISTRATIVE LAW JUDGE) ENERGY CONSERVATION/ACTIVITY DEMAND (OT/US ADMINISTRATIVE LAW JUDGE) OT/US ADMINISTRATIVE LAW JUDGE TO MONITOR AND EDUCATE ON OXYGEN SATURATION DURING ADLS/IADLS, NOTIFY PHYSICIAN AND/OR THE RN CLINICAL CORPORATE SALES MANAGER FOR PHYSICIAN NOTIFICATION AND IF O2 SATS BELOW 90% AFTER 10 MIN OF REST. OT / US ADMINISTRATIVE LAW JUDGE TO IDENTIFY FALL RISK FACTORS; EDUCATE THE PATIENT/CAREGIVER ON WAYS TO REDUCE FALL RISK FACTORS AND ESTABLISH HOME EXERCISE PROGRAM TO MINIMIZE FALL RISK. MAY TEACH THE PATIENT FLOOR RECOVERY WHEN CLINICALLY APPROPRIATE. OT/US ADMINISTRATIVE LAW JUDGE TO EDUCATE ON HYPERTENSION SELF-MANAGEMENT OT/MARIANNE TO EDUCATE ON ATRIAL FIBRILLATION SELF-MANAGEMENT. [code = AGENCY MAY PERFORM A RESUMPTION OF CARE VISIT FOLLOWING ANY HOSPITAL ADMISSION. OT TO EVALUATE, OBSERVE / ASSESS, AND MONITOR, US ADMINISTRATIVE LAW JUDGE TO OBSERVE AND MONITOR, PROVIDE SKILLED THERAPEUTIC INTERVENTION, ACTIVITY, EDUCATION, AND TRAINING TO ADDRESS SAFETY AND INDEPENDENCE OF ADLS AND FUNCTIONAL TRANSFERS IN HOME ENVIRONMENT. ACTIVITIES OF DAILY LIVING (OT/MARIANNE) THERAPEUTIC EXERCISE (OT/US ADMINISTRATIVE LAW JUDGE) ENERGY CONSERVATION/ACTIVITY DEMAND (OT/MARIANNE) OT/US ADMINISTRATIVE LAW JUDGE TO MONITOR AND EDUCATE ON OXYGEN SATURATION DURING ADLS/IADLS, NOTIFY PHYSICIAN AND/OR THE RN CLINICAL CORPORATE SALES MANAGER FOR PHYSICIAN NOTIFICATION AND IF O2 SATS BELOW 90% AFTER 10 MIN OF REST. OT / MARIANNE TO IDENTIFY FALL RISK FACTORS; EDUCATE THE PATIENT/CAREGIVER ON WAYS TO REDUCE FALL RISK FACTORS AND ESTABLISH HOME EXERCISE PROGRAM TO MINIMIZE FALL RISK. MAY TEACH THE PATIENT FLOOR RECOVERY WHEN CLINICALLY APPROPRIATE. OT/US ADMINISTRATIVE LAW JUDGE TO EDUCATE ON HYPERTENSION SELF-MANAGEMENT OT/MARIANNE TO [...] OF SKIN INTEGRITY ISSUES FROM SBA TO TX WITHIN 2 WKS. PT STG: PATIENT WILL [...] TO SAFELY NEGOTIATE STAIRS FROM SBA TO TX WITH 2 STEPS W/O HANDRAIL VIA FRONT [...] End Date/Time Encounter Type Admission Type Attending [facility] Care Department Encounter ID Discharge Date Discharge Status Discharge Condition Discharge Reason Percent Goals Met 2025-02-07 00:00:00 2025-04-07 00:00:00 Outpatient NEW ADMISSION [facility] [id number] 26.42
--- OUTSIDE RECORDS SUMMARY | 2025-04-06 18:00 | XMS_ITS | Clinical Summary ---
Author Organization Unknown Care Team Providers Care Teachers Assistant Name Role Phone DIGNA ARIEL, ESTRELLA Unavailable Unava dinora STOKES RN, FRANKIE Unavailable Unavailabl e KARI PT, DIDI Unavailable Unavailable NAT WHITEPRINTING MACHINE OPERATOR, GAUDENCIO Unavailable Unavailabl e RADHA OT, ROLANDO Unavailable Unavailable JOANNE STEVEN, HATTIE Unavailable Unavailable Payers Payer Name Policy Type Policy Number Effective Date Expira tion Date MEDICARE.[facility] [id number] Problems Condition Name Condition Details Condition Category Status Onset Date Resolution Date Last Treatment Date Treating Clinician Comments 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 02-07 [...] OF PNEUMONIA (RECURRENT) Active 02-07 00:00: 00 REBEAMER (CURRENT) USE OF SYSTEMIC STEROIDS Active 02-07 [...] 80 mg tablet 02-07 00:00: 00 Yes [id number] CHOLESTEROL 1 tablet DAILY 1 tablet DAILY (route: oral) Med Classific ation: Cardiovas cular Therapy Agents digoxin 125 mcg (0.125 mg) tablet 02-07 00:00: 00 02-21 23:59 :00 No [id number] HEART RHYTHM 1 tablet DAILY 1 tablet DAILY (route: oral) Med Classific ation: Cardiovas cular Therapy Agents escitalopra m 10 mg tablet 02-07 00:00: 00 Yes [id number] MOOD 1 tablet DAILY 1 tablet DAILY (route: oral) Med Classific ation: Central Nervous System Agents ezetimibe 10 mg tablet 02-07 00:00: 00 Yes [id number] CHOLESTEROL 1 tablet DAILY 1 tablet DAILY (route: oral) Med Classific ation: Cardiovas cular Therapy Agents metoprolol succinate ER 25 mg tablet,exte nded release 24 hr 02-07 00:00: 00 02-21 23:59 :00 No [id number] BLOOD PRESSURE 0.5 tablet DAILY 0.5 tablet DAILY (route: oral) Med Classific ation: Cardiovas cular Therapy Agents pantoprazol e 40 mg tablet,joão yed release 02-07 00:00: 00 02-21 23:59 :00 No [id number] STOMACH ACID 1 tablet DAILY 1 tablet DAILY (route: oral) Med Classific ation: Gastroint estinal Therapy Agents prednisone 5 mg tablet 02-07 00:00: 00 Yes [id number] ADRENAL INSUFFICIEN CY 1 tablet DAILY 1 tablet DAILY (route: oral) Med Classific ation: Endocrine spironolact one 25 mg tablet 02-07 00:00: 00 Yes [id number] FLUID RETENTION 0.5 tablet DAILY 0.5 tablet DAILY (route: oral) Med Classific ation: Cardiovas cular Therapy Agents tamsulosin 0.4 mg capsule 02-07 00:00: 00 02-21 23:59 :00 No [id number] URINARY HEALTH 1 capsule DAILY 1 capsule DAILY (route: oral) Med Classific ation: Genitouri nary Therapy acetaminoph en 325 mg tablet 2024-05 00:00: 00 Yes [id number] PAIN 2 tablet 2 TIMES DAILY 2 tablet 2 TIMES DAILY (route: oral) Med Classific ation: Analgesic , Anti-infl ammatory or Antipyret ic aspirin 81 mg tablet 2024-05 00:00: 00 Yes [id number] ANTICOAGULA NT 1 tablet DAILY 1 tablet DAILY (route: oral) Med Classific ation: Hematolog ical Agents ipratropium 0.5 mg-albutero l 3 mg (2.5 mg base)/3 mL nebulizatio n soln 2024-05 00:00: 00 Yes [id number] COPD 3 mL EVERY 6 HOURS 3 mL EVERY 6 HOURS (route: inhalation ) Med Classific ation: Respirato ry Therapy Agents Lanoxin 62.5 mcg (0.0625 mg) tablet 2024-05 00:00: 00 Yes [id number] CHF 1 tablet DAILY 1 tablet DAILY (route: oral) Med Classific ation: Cardiovas cular Therapy Agents Lasix 20 mg tablet 2024-05 00:00: 00 Yes [id number] CHF 1 tablet DAILY 1 tablet DAILY (route: oral) Med Classific ation: Cardiovas cular Therapy Agents Toprol XL 25 mg tablet,exte nded release 2024-05 00:00: 00 Yes [id number] BP 25 mg DAILY 25 mg DAILY [...] SYSTEM MANAGEMENT; RN TO ASSESS AND TEACH, CHECK PROCESSING CLERK/INDIRECT SALES REPRESENTATIVE TO OBSERVE AND TEACH RELATED TO ALTERED RESPIRATORY STATUS TO MINIMIZE COMPLICATIONS AND REDUCE HOSPITALIZATION. [code = SN 1WK9 PT 1WK1 OT EFFECTIVE 02/10/2025K1 RESPIRATORY SYSTEM MANAGEMENT; RN TO ASSESS AND TEACH, CHECK PROCESSING CLERK/INDIRECT SALES REPRESENTATIVE TO OBSERVE AND TEACH RELATED TO ALTERED RESPIRATORY STATUS TO MINIMIZE COMPLICATIONS AND REDUCE HOSPITALIZATION.] Future Scheduled Test TRACHEOSTO MY CARE MANAGEMENT; RN/CHECK PROCESSING CLERK/INDIRECT SALES REPRESENTATIVE TO INSTRUCT PATIENT/CAREGIVER ON CARE AND MANAGEMENT OF TRACHEOSTOMY. RN/ CHECK PROCESSING CLERK/INDIRECT SALES REPRESENTATIVE TO PROVIDE SKILLED TEACHING ON TRACH COLLAR SUCTIONING PRN WITH 14 FR SUCTION CATHETER PER PATIENT TRACH CARE WITH INNER CANNULA: REMOVE INNER CANNULA, CLEANSE WITH NORMAL SALINE AND OR STERILE WATER AND REINSERT NON-DISPOSABLE CANNULA SIZE OF INNER CANNULA 5 BROOKS [code = TRACHEOSTOMY CARE MANAGEMENT; RN/CHECK PROCESSING CLERK/INDIRECT SALES REPRESENTATIVE TO INSTRUCT PATIENT/CAREGIVER ON CARE AND MANAGEMENT OF TRACHEOSTOMY. RN/ CHECK PROCESSING CLERK/INDIRECT SALES REPRESENTATIVE TO PROVIDE SKILLED TEACHING ON TRACH COLLAR SUCTIONING PRN WITH 14 FR SUCTION CATHETER PER PATIENT TRACH CARE WITH INNER CANNULA: REMOVE INNER CANNULA, CLEANSE WITH NORMAL SALINE AND OR STERILE WATER AND REINSERT NON-DISPOSABLE CANNULA SIZE OF INNER CANNULA 5 BROOKS] Future Scheduled Test FALL REDUC TION MANAGEMENT; RN TO ASSESS AND OBSERVE, CHECK PROCESSING CLERK/INDIRECT SALES REPRESENTATIVE TO OBSERVE FALL RISK FACTORS AND EDUCATE PATIENT/CAREGIVER ON STRATEGIES TO MINIMIZE THE RISK OF FALLING. [code = FALL REDUCTION MANAGEMENT; RN TO ASSESS AND OBSERVE, CHECK PROCESSING CLERK/INDIRECT SALES REPRESENTATIVE TO OBSERVE FALL RISK FACTORS AND EDUCATE PATIENT/CAREGIVER ON STRATEGIES TO MINIMIZE THE RISK OF FALLING.] Future Scheduled Test ANEMIA MAN AGEMENT; RN TO ASSESS AND TEACH, INDIRECT SALES REPRESENTATIVE/CHECK PROCESSING CLERK TO OBSERVE AND TEACH AND PROVIDE EDUCATION ON ANEMIA. [code = ANEMIA MANAGEMENT; RN TO ASSESS AND TEACH, INDIRECT SALES REPRESENTATIVE/CHECK PROCESSING CLERK TO OBSERVE AND TEACH AND PROVIDE EDUCATION ON ANEMIA.] Future Scheduled Test RN TO OBSE RVE, ASSESS, EVALUATE, AND DEVELOP AN INDIVIDUALIZED PLAN OF CARE. AGENCY MAY ACCEPT ORDERS FROM CONSULTING PHYSICIANS RN TO OBSERVE AND ASSESS, CHECK PROCESSING CLERK/INDIRECT SALES REPRESENTATIVE TO OBSERVE FOR RISK FOR FALLS AND INSTRUCT IN FALL PREVENTION, HOME SAFETY, MEDICATION MANAGEMENT, INFECTION PREVENTION, AND NUTRITION MANAGEMENT. RN/CHECK PROCESSING CLERK/INDIRECT SALES REPRESENTATIVE NURSE MAY PERFORM O2 SATURATION LEVEL ON ADMISSION AND PRN FOR RN TO ASSESS/CHECK PROCESSING CLERK TO OBSERVE PATIENT, WITH NOTIFICATION TO THE PHYSICIAN IF SATURATION IS 90% IN THE ABSENCE OF MORE SPECIFIC PARAMETERS FROM THE PHYSICIAN. AGENCY MAY PERFORM A RESUMPTION OF CARE VISIT FOLLOWING ANY HOSPITAL ADMISSION. RN/CHECK PROCESSING CLERK/INDIRECT SALES REPRESENTATIVE TO MONITOR CO-MORBID CONDITIONS LISTED ON THE PLAN OF CARE AND ANY NEW CONDITIONS THAT PRESENT THEMSELVES DURING THIS EPISODE TO IDENTIFY CHANGES AND INTERVENE TO MINIMIZE COMPLICATIONS. [code = RN TO OBSERVE, ASSESS, EVALUATE, AND DEVELOP AN INDIVIDUALIZED PLAN OF CARE. AGENCY MAY ACCEPT ORDERS FROM CONSULTING PHYSICIANS RN TO OBSERVE AND ASSESS, CHECK PROCESSING CLERK/INDIRECT SALES REPRESENTATIVE TO OBSERVE FOR RISK FOR FALLS AND INSTRUCT IN FALL PREVENTION, HOME SAFETY, MEDICATION MANAGEMENT, INFECTION PREVENTION, AND NUTRITION MANAGEMENT. RN/CHECK PROCESSING CLERK/INDIRECT SALES REPRESENTATIVE NURSE MAY PERFORM O2 SATURATION LEVEL ON ADMISSION AND PRN FOR RN TO ASSESS/CHECK PROCESSING CLERK TO OBSERVE PATIENT, WITH NOTIFICATION TO THE PHYSICIAN IF SATURATION IS 90% IN THE ABSENCE OF MORE SPECIFIC PARAMETERS FROM THE PHYSICIAN. AGENCY MAY PERFORM A RESUMPTION OF CARE VISIT FOLLOWING ANY HOSPITAL ADMISSION. RN/CHECK PROCESSING CLERK/INDIRECT SALES REPRESENTATIVE TO MONITOR CO-MORBID CONDITIONS LISTED ON THE PLAN OF CARE AND ANY NEW CONDITIONS THAT PRESENT THEMSELVES DURING THIS EPISODE TO IDENTIFY CHANGES AND INTERVENE TO MINIMIZE COMPLICATIONS.] Future Scheduled Test PAIN MANAG EMENT; RN TO ASSESS AND TEACH, INDIRECT SALES REPRESENTATIVE/CHECK PROCESSING CLERK TO OBSERVE AND TEACH AND PROVIDE EDUCATION ON PAIN MANAGEMENT TECHNIQUES. [code = PAIN MANAGEMENT; RN TO ASSESS AND TEACH, INDIRECT SALES REPRESENTATIVE/CHECK PROCESSING CLERK TO OBSERVE AND TEACH AND PROVIDE EDUCATION ON PAIN MANAGEMENT TECHNIQUES.] Future Scheduled Test RISK FOR H OSPITALIZATION; RN TO ASSESS/TEACH, INDIRECT SALES REPRESENTATIVE/CHECK PROCESSING CLERK TO OBSERVE/TEACH PATIENT/CAREGIVER ON RISK FOR HOSPITALIZATION/EMERGENCY ROOM VISITS, TEACH SIGNS AND SYMPTOMS THAT PUT PATIENT AT RISK, WHEN TO NOTIFY NURSE/PHYSICIAN OF COMPLICATIONS/DECLINE, AND WHEN TO CALL 911. [code = RISK FOR HOSPITALIZATION; RN TO ASSESS/TEACH, INDIRECT SALES REPRESENTATIVE/CHECK PROCESSING CLERK TO OBSERVE/TEACH PATIENT/CAREGIVER ON RISK FOR HOSPITALIZATION/EMERGENCY ROOM VISITS, TEACH SIGNS AND SYMPTOMS THAT PUT PATIENT AT RISK, WHEN TO NOTIFY NURSE/PHYSICIAN OF COMPLICATIONS/DECLINE, AND WHEN TO CALL 911.] Future Scheduled Test CARDIOVASC ULAR SYSTEM; RN TO ASSESS/TEACH, CHECK PROCESSING CLERK/INDIRECT SALES REPRESENTATIVE TO OBSERVE/TEACH RELATED TO ALTERED CARDIOVASCULAR STATUS TO MINIMIZE COMPLICATIONS AND REDUCE HOSPITALIZATION. [code = CARDIOVASCULAR SYSTEM; RN TO ASSESS/TEACH, CHECK PROCESSING CLERK/INDIRECT SALES REPRESENTATIVE TO OBSERVE/TEACH RELATED TO ALTERED CARDIOVASCULAR STATUS TO MINIMIZE COMPLICATIONS AND REDUCE HOSPITALIZATION.] Future Scheduled Test HYPERTENSI ON MANAGEMENT; RN TO ASSESS AND TEACH, CHECK PROCESSING CLERK/INDIRECT SALES REPRESENTATIVE TO OBSERVE AND TEACH WARNING SIGNS AND SYMPTOMS TO AVOID HOSPITALIZATION. [code = HYPERTENSION MANAGEMENT; RN TO ASSESS AND TEACH, CHECK PROCESSING CLERK/INDIRECT SALES REPRESENTATIVE TO OBSERVE AND TEACH WARNING SIGNS AND SYMPTOMS TO AVOID HOSPITALIZATION.] Future Scheduled Test HEART FAIL URE MONITORING RN/INDIRECT SALES REPRESENTATIVE/CHECK PROCESSING CLERK TO MONITOR PATIENT FOR SIGNS AND SYMPTOMS OF HEART FAILURE EXACERBATION, MONITOR FOR ADHERENCE WITH MEDICATION AND HEART FAILURE MANAGEMENT REGIMEN. [code = HEART FAILURE MONITORING RN/INDIRECT SALES REPRESENTATIVE/CHECK PROCESSING CLERK TO MONITOR PATIENT FOR SIGNS AND SYMPTOMS OF HEART FAILURE EXACERBATION, MONITOR FOR ADHERENCE WITH MEDICATION AND HEART FAILURE MANAGEMENT REGIMEN.] Future Scheduled Test DIABETES M ONITORING RN/INDIRECT SALES REPRESENTATIVE/CHECK PROCESSING CLERK TO MONITOR BLOOD SUGAR LOG FOR BLOOD SUGAR READINGS THAT ARE BEING CHECKED BY PATIENT, CAREGIVER NEEDED FOR SIGNS AND SYMPTOMS OF HYPER/HYPOGLYCEMIA. PATIENT THERAPEUTIC BLOOD SUGAR PARAMETERS ARE 70 - 300. REPORT BLOOD SUGARS OUT OF RANGE TO PHYSICIAN. NURSE MAY PERFORM FINGER STICK BLOOD GLUCOSE NEEDED FOR SIGNS AND SYMPTOMS OF HYPO AND HYPERGLYCEMIA. RN/INDIRECT SALES REPRESENTATIVE/CHECK PROCESSING CLERK TO MONITOR ADHERENCE OF PATIENT/CAREGIVER PERFORMING DIABETIC FOOT CARE AND MAY PERFORM DIABETIC FOOT CARE PRN. RN/INDIRECT SALES REPRESENTATIVE/CHECK PROCESSING CLERK TO MONITOR FOR ADHERENCE TO DIABETIC SELF-CARE AND MANAGEMENT INCLUDING MEDICATIONS. [code = DIABETES MONITORING RN/INDIRECT SALES REPRESENTATIVE/CHECK PROCESSING CLERK TO MONITOR BLOOD SUGAR LOG FOR BLOOD SUGAR READINGS THAT ARE BEING CHECKED BY PATIENT, CAREGIVER NEEDED FOR SIGNS AND SYMPTOMS OF HYPER/HYPOGLYCEMIA. PATIENT THERAPEUTIC BLOOD SUGAR PARAMETERS ARE 70 - 300. REPORT BLOOD SUGARS OUT OF RANGE TO PHYSICIAN. NURSE MAY PERFORM FINGER STICK BLOOD GLUCOSE NEEDED FOR SIGNS AND SYMPTOMS OF HYPO AND HYPERGLYCEMIA. RN/INDIRECT SALES REPRESENTATIVE/CHECK PROCESSING CLERK TO MONITOR ADHERENCE OF PATIENT/CAREGIVER PERFORMING DIABETIC FOOT CARE AND MAY PERFORM DIABETIC FOOT CARE PRN. RN/INDIRECT SALES REPRESENTATIVE/CHECK PROCESSING CLERK TO MONITOR FOR ADHERENCE TO DIABETIC SELF-CARE AND MANAGEMENT INCLUDING MEDICATIONS.] Future Scheduled Test HYPOTENSIO N MANAGEMENT; RN TO ASSESS AND TEACH/ CHECK PROCESSING CLERK /INDIRECT SALES REPRESENTATIVE TO OBSERVE AND TEACH WARNING SIGNS AND SYMPTOMS TO AVOID HOSPITALIZATION. [code = HYPOTENSION MANAGEMENT; RN TO ASSESS AND TEACH/ CHECK PROCESSING CLERK /INDIRECT SALES REPRESENTATIVE TO OBSERVE AND TEACH WARNING SIGNS AND SYMPTOMS TO AVOID HOSPITALIZATION.] Future Scheduled Test ARRHYTHMIA MANAGEMENT; RN TO ASSESS AND TEACH, CHECK PROCESSING CLERK/INDIRECT SALES REPRESENTATIVE TO OBSERVE AND TEACH WARNING SIGNS AND SYMPTOMS TO AVOID HOSPITALIZATION. [code = ARRHYTHMIA MANAGEMENT; RN TO ASSESS AND TEACH, CHECK PROCESSING CLERK/INDIRECT SALES REPRESENTATIVE TO OBSERVE AND TEACH WARNING SIGNS AND SYMPTOMS TO AVOID HOSPITALIZATION.] Future Scheduled Test MEDICATION MANAGEMENT; RN/CHECK PROCESSING CLERK/INDIRECT SALES REPRESENTATIVE TO REVIEW MEDICATIONS FOR INTERACTIONS, EFFECTIVENESS OF DRUG THERAPY, AND SIGNS/SYMPTOMS OF ADVERSE REACTIONS. MAY INSTRUCT AND REINFORCE MEDICATION TEACHING RELATED TO THE USE OF MEDICATIONS, DOSAGE, FREQUENCY, PURPOSE, SIDE EFFECTS, AND TO REPORT COMPLICATIONS. [code = MEDICATION MANAGEMENT; RN/CHECK PROCESSING CLERK/INDIRECT SALES REPRESENTATIVE TO REVIEW MEDICATIONS FOR INTERACTIONS, EFFECTIVENESS OF [...] EVAL UATE, OBSERVE / ASSESS, AND MONITOR, WHITEPRINTING MACHINE OPERATOR TO OBSERVE AND MONITOR, PROVIDE SKILLED THERAPEUTIC INTERVENTION, ACTIVITY, EDUCATION, AND TRAINING TO ADDRESS GEN. WEAKNESS, POOR OVERALL ACTIVITY TOLERANCE, AND FUNCTIONAL LIMITATIONS IMPACTING SAFETY AND INDEPENDENCE. BED MOBILITY (PT/WHITEPRINTING MACHINE OPERATOR) PT/WHITEPRINTING MACHINE OPERATOR TO PROVIDE GAIT TRAINING FOR IMPROVED MOBILITY AND /OR TO NORMALIZE GAIT PATTERN THERAPEUTIC EXERCISES AND ESTABLISHING A HOME EXERCISE PROGRAM (PT/WHITEPRINTING MACHINE OPERATOR) PT/WHITEPRINTING MACHINE OPERATOR TO PROVIDE STAIR TRAINING PT / WHITEPRINTING MACHINE OPERATOR TO MONITOR AND EDUCATE ON OXYGEN SATURATION DURING ADLS/IADLS, NOTIFY PHYSICIAN AND/OR THE RN CLINICAL CONVEYOR LOADER FOR PHYSICIAN NOTIFICATION AND IF O2 SATS BELOW PHYSICIAN ORDERED PARAMETERS AFTER 10 MIN OF REST PT / WHITEPRINTING MACHINE OPERATOR TO OBSERVE FOR EARLY SIGNS AND SYMPTOMS OF DEPRESSION OR DEPRESSION GETTING WORSE AND TO EDUCATE ON HOW TO FIND HELP. PT / WHITEPRINTING MACHINE OPERATOR MAY EDUCATE ON PAIN MANAGEMENT CLINICALLY INDICATED, INCLUDING NON-PHARMACOLOGICAL PAIN REDUCTION TECHNIQUES PT / WHITEPRINTING MACHINE OPERATOR TO MONITOR FOR HYPO/HYPERGLYCEMIA AND CONDUCT ROUTINE FOOT INSPECTIONS. RECORD PATIENT REPORTED BLOOD SUGAR LEVELS AND NOTIFY PHYSICIAN AND/OR THE RN CLINICAL CONVEYOR LOADER FOR PHYSICIAN NOTIFICATION IF BLOOD SUGAR LEVELS ARE OUTSIDE ORDERED PARAMETERS. TEACH PATIENT/CAREGIVER ON DAILY FOOT INSPECTIONS PT / WHITEPRINTING MACHINE OPERATOR TO INSTRUCT PATIENT/CAREGIVER ON RISK FOR HOSPITALIZATION/EMERGENCY ROOM VISITS, TEACH SIGNS AND SYMPTOMS THAT PUT PATIENT AT RISK, WHEN TO NOTIFY NURSE/PHYSICIAN OF COMPLICATIONS/DECLINE, AND WHEN TO CALL 911. PT/WHITEPRINTING MACHINE OPERATOR TO EDUCATE ON ARTHRITIS SELF-MANAGEMENT PT / WHITEPRINTING MACHINE OPERATOR TO EDUCATE ON HEART FAILURE SELF-MANAGEMENT PT / WHITEPRINTING MACHINE OPERATOR TO EDUCATE ON HYPERTENSION SELF-MANAGEMENT PT TO ASSESS / WHITEPRINTING MACHINE OPERATOR TO MONITOR CARDIO/RESPIRATORY SYSTEM; AND NOTIFY THE PHYSICIAN AND/OR THE RN CLINICAL CONVEYOR LOADER FOR PHYSICIAN NOTIFICATION FOR EARLY SIGNS AND SYMPTOMS OF EXACERBATION OR DETERIORATION. PT / WHITEPRINTING MACHINE OPERATOR TO EDUCATE ON ATRIAL FIBRILLATION SELF-MANAGEMENT. PT / WHITEPRINTING MACHINE OPERATOR TO EDUCATE ON PNEUMONIA / ASPIRATION PNEUMONIA SELF-MANAGEMENT. PT/WHITEPRINTING MACHINE OPERATOR TO IDENTIFY FALL RISK FACTORS; EDUCATE THE PATIENT/CAREGIVER ON WAYS TO REDUCE FALL RISK FACTORS AND ESTABLISH HOME EXERCISE PROGRAM TO MINIMIZE FALL RISK. MAY TEACH THE PATIENT FLOOR RECOVERY WHEN CLINICALLY APPROPRIATE [code = PT TO EVALUATE, OBSERVE / ASSESS, AND MONITOR, WHITEPRINTING MACHINE OPERATOR TO OBSERVE AND MONITOR, PROVIDE SKILLED THERAPEUTIC INTERVENTION, ACTIVITY, EDUCATION, AND TRAINING TO ADDRESS GEN. WEAKNESS, POOR OVERALL ACTIVITY TOLERANCE, AND FUNCTIONAL LIMITATIONS IMPACTING SAFETY AND INDEPENDENCE. BED MOBILITY (PT/WHITEPRINTING MACHINE OPERATOR) PT/WHITEPRINTING MACHINE OPERATOR TO PROVIDE GAIT TRAINING FOR IMPROVED MOBILITY AND /OR TO NORMALIZE GAIT PATTERN THERAPEUTIC EXERCISES AND ESTABLISHING A HOME EXERCISE PROGRAM (PT/WHITEPRINTING MACHINE OPERATOR) PT/WHITEPRINTING MACHINE OPERATOR TO PROVIDE STAIR TRAINING PT / WHITEPRINTING MACHINE OPERATOR TO MONITOR AND EDUCATE ON OXYGEN SATURATION DURING ADLS/IADLS, NOTIFY PHYSICIAN AND/OR THE RN CLINICAL CONVEYOR LOADER FOR PHYSICIAN NOTIFICATION AND IF O2 SATS BELOW PHYSICIAN ORDERED PARAMETERS AFTER 10 MIN OF REST PT / WHITEPRINTING MACHINE OPERATOR TO OBSERVE FOR EARLY SIGNS AND SYMPTOMS OF DEPRESSION OR DEPRESSION GETTING WORSE AND TO EDUCATE ON HOW TO FIND HELP. PT / WHITEPRINTING MACHINE OPERATOR MAY EDUCATE ON PAIN MANAGEMENT CLINICALLY INDICATED, INCLUDING NON-PHARMACOLOGICAL PAIN REDUCTION TECHNIQUES PT / WHITEPRINTING MACHINE OPERATOR TO MONITOR FOR HYPO/HYPERGLYCEMIA AND CONDUCT ROUTINE FOOT INSPECTIONS. RECORD PATIENT REPORTED BLOOD SUGAR LEVELS AND NOTIFY PHYSICIAN AND/OR THE RN CLINICAL CONVEYOR LOADER FOR PHYSICIAN NOTIFICATION IF BLOOD SUGAR LEVELS ARE OUTSIDE ORDERED PARAMETERS. TEACH PATIENT/CAREGIVER ON DAILY FOOT INSPECTIONS PT / WHITEPRINTING MACHINE OPERATOR TO INSTRUCT PATIENT/CAREGIVER ON RISK FOR HOSPITALIZATION/EMERGENCY ROOM VISITS, TEACH SIGNS AND SYMPTOMS THAT PUT PATIENT AT RISK, WHEN TO NOTIFY NURSE/PHYSICIAN OF COMPLICATIONS/DECLINE, AND WHEN TO CALL 911. PT/WHITEPRINTING MACHINE OPERATOR TO EDUCATE ON ARTHRITIS SELF-MANAGEMENT PT / WHITEPRINTING MACHINE OPERATOR TO EDUCATE ON HEART FAILURE SELF-MANAGEMENT PT / WHITEPRINTING MACHINE OPERATOR TO EDUCATE ON HYPERTENSION SELF-MANAGEMENT PT TO ASSESS / WHITEPRINTING MACHINE OPERATOR TO MONITOR CARDIO/RESPIRATORY SYSTEM; AND NOTIFY THE PHYSICIAN AND/OR THE RN CLINICAL CONVEYOR LOADER FOR PHYSICIAN NOTIFICATION FOR EARLY SIGNS AND SYMPTOMS OF EXACERBATION OR DETERIORATION. PT / WHITEPRINTING MACHINE OPERATOR TO EDUCATE ON ATRIAL FIBRILLATION SELF-MANAGEMENT. PT / WHITEPRINTING MACHINE OPERATOR TO EDUCATE ON PNEUMONIA / ASPIRATION PNEUMONIA SELF-MANAGEMENT. PT/WHITEPRINTING MACHINE OPERATOR TO IDENTIFY FALL RISK FACTORS; EDUCATE THE PATIENT/CAREGIVER ON WAYS TO REDUCE FALL RISK FACTORS AND ESTABLISH HOME EXERCISE PROGRAM TO MINIMIZE FALL RISK. MAY TEACH THE PATIENT FLOOR RECOVERY WHEN CLINICALLY APPROPRIATE] Future Scheduled Test AGENCY MAY PERFORM A RESUMPTION OF CARE VISIT FOLLOWING ANY HOSPITAL ADMISSION. OT TO EVALUATE, OBSERVE / ASSESS, AND MONITOR, BULB FARMWORKER TO OBSERVE AND MONITOR, PROVIDE SKILLED THERAPEUTIC INTERVENTION, ACTIVITY, EDUCATION, AND TRAINING TO ADDRESS SAFETY AND INDEPENDENCE OF ADLS AND FUNCTIONAL TRANSFERS IN HOME ENVIRONMENT. ACTIVITIES OF DAILY LIVING (OT/MARIANNE) THERAPEUTIC EXERCISE (OT/BULB FARMWORKER) ENERGY CONSERVATION/ACTIVITY DEMAND (OT/BULB FARMWORKER) OT/BULB FARMWORKER TO MONITOR AND EDUCATE ON OXYGEN SATURATION DURING ADLS/IADLS, NOTIFY PHYSICIAN AND/OR THE RN CLINICAL CONVEYOR LOADER FOR PHYSICIAN NOTIFICATION AND IF O2 SATS BELOW 90% AFTER 10 MIN OF REST. OT / BULB FARMWORKER TO IDENTIFY FALL RISK FACTORS; EDUCATE THE PATIENT/CAREGIVER ON WAYS TO REDUCE FALL RISK FACTORS AND ESTABLISH HOME EXERCISE PROGRAM TO MINIMIZE FALL RISK. MAY TEACH THE PATIENT FLOOR RECOVERY WHEN CLINICALLY APPROPRIATE. OT/BULB FARMWORKER TO EDUCATE ON HYPERTENSION SELF-MANAGEMENT OT/MARIANNE TO EDUCATE ON ATRIAL FIBRILLATION SELF-MANAGEMENT. [code = AGENCY MAY PERFORM A RESUMPTION OF CARE VISIT FOLLOWING ANY HOSPITAL ADMISSION. OT TO EVALUATE, OBSERVE / ASSESS, AND MONITOR, BULB FARMWORKER TO OBSERVE AND MONITOR, PROVIDE SKILLED THERAPEUTIC INTERVENTION, ACTIVITY, EDUCATION, AND TRAINING TO ADDRESS SAFETY AND INDEPENDENCE OF ADLS AND FUNCTIONAL TRANSFERS IN HOME ENVIRONMENT. ACTIVITIES OF DAILY LIVING (OT/MARIANNE) THERAPEUTIC EXERCISE (OT/BULB FARMWORKER) ENERGY CONSERVATION/ACTIVITY DEMAND (OT/MARIANNE) OT/BULB FARMWORKER TO MONITOR AND EDUCATE ON OXYGEN SATURATION [...] THE PATIENT FLOOR RECOVERY WHEN CLINICALLY APPROPRIATE. OT/BULB FARMWORKER TO EDUCATE ON HYPERTENSION SELF-MANAGEMENT OT/MARIANNE TO [...] ADMISSION [facility] [id number]
--- OUTSIDE RECORDS SUMMARY | 2025-04-06 18:00 | XMS_ITS | Clinical Summary ---
Author Organization Unknown Care Team Providers Care Senior Technical Manager Name Role Phone DIGNA ARIEL, ESTRELLA Unavailable Unava dinora STOKES RN, FRANKIE Unavailable Unavailabl e KARI PT, DIDI Unavailable Unavailable NAT EMBEDDED SOFTWARE DESIGN ENGINEER, GAUDENCIO Unavailable Unavailabl e RADHA OT, ROLANDO Unavailable Unavailable JOANNE STEVEN, HATTIE Unavailable Unavailable Payers Payer Name Policy Type Policy Number Effective Date Expira tion Date MEDICARE.[facility] [id number] Problems Condition Name Condition Details Condition Category Status Onset Date Resolution Date Last Treatment Date Treating Clinician Comments 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 02-07 [...] OF PNEUMONIA (RECURRENT) Active 02-07 00:00: 00 CLINICAL RESEARCH TECH (CURRENT) USE OF SYSTEMIC STEROIDS Active 02-07 [...] 80 mg tablet 02-07 00:00: 00 Yes [id number] CHOLESTEROL 1 tablet DAILY 1 tablet DAILY (route: oral) Med Classific ation: Cardiovas cular Therapy Agents digoxin 125 mcg (0.125 mg) tablet 02-07 00:00: 00 02-21 23:59 :00 No [id number] HEART RHYTHM 1 tablet DAILY 1 tablet DAILY (route: oral) Med Classific ation: Cardiovas cular Therapy Agents escitalopra m 10 mg tablet 02-07 00:00: 00 Yes [id number] MOOD 1 tablet DAILY 1 tablet DAILY (route: oral) Med Classific ation: Central Nervous System Agents ezetimibe 10 mg tablet 02-07 00:00: 00 Yes [id number] CHOLESTEROL 1 tablet DAILY 1 tablet DAILY (route: oral) Med Classific ation: Cardiovas cular Therapy Agents metoprolol succinate ER 25 mg tablet,exte nded release 24 hr 02-07 00:00: 00 02-21 23:59 :00 No [id number] BLOOD PRESSURE 0.5 tablet DAILY 0.5 tablet DAILY (route: oral) Med Classific ation: Cardiovas cular Therapy Agents pantoprazol e 40 mg tablet,joão yed release 02-07 00:00: 00 02-21 23:59 :00 No [id number] STOMACH ACID 1 tablet DAILY 1 tablet DAILY (route: oral) Med Classific ation: Gastroint estinal Therapy Agents prednisone 5 mg tablet 02-07 00:00: 00 Yes [id number] ADRENAL INSUFFICIEN CY 1 tablet DAILY 1 tablet DAILY (route: oral) Med Classific ation: Endocrine spironolact one 25 mg tablet 02-07 00:00: 00 Yes [id number] FLUID RETENTION 0.5 tablet DAILY 0.5 tablet DAILY (route: oral) Med Classific ation: Cardiovas cular Therapy Agents tamsulosin 0.4 mg capsule 02-07 00:00: 00 02-21 23:59 :00 No [id number] URINARY HEALTH 1 capsule DAILY 1 capsule DAILY (route: oral) Med Classific ation: Genitouri nary Therapy acetaminoph en 325 mg tablet 2024-05 00:00: 00 Yes [id number] PAIN 2 tablet 2 TIMES DAILY 2 tablet 2 TIMES DAILY (route: oral) Med Classific ation: Analgesic , Anti-infl ammatory or Antipyret ic aspirin 81 mg tablet 2024-05 00:00: 00 Yes [id number] ANTICOAGULA NT 1 tablet DAILY 1 tablet DAILY (route: oral) Med Classific ation: Hematolog ical Agents ipratropium 0.5 mg-albutero l 3 mg (2.5 mg base)/3 mL nebulizatio n soln 2024-05 00:00: 00 Yes [id number] COPD 3 mL EVERY 6 HOURS 3 mL EVERY 6 HOURS (route: inhalation ) Med Classific ation: Respirato ry Therapy Agents Lanoxin 62.5 mcg (0.0625 mg) tablet 2024-05 00:00: 00 Yes [id number] CHF 1 tablet DAILY 1 tablet DAILY (route: oral) Med Classific ation: Cardiovas cular Therapy Agents Lasix 20 mg tablet 2024-05 00:00: 00 Yes [id number] CHF 1 tablet DAILY 1 tablet DAILY (route: oral) Med Classific ation: Cardiovas cular Therapy Agents Toprol XL 25 mg tablet,exte nded release 2024-05 00:00: 00 Yes [id number] BP 25 mg DAILY 25 mg DAILY [...] SYSTEM MANAGEMENT; RN TO ASSESS AND TEACH, DATA SUPPORT SPECIALIST/CARE AID TO OBSERVE AND TEACH RELATED TO ALTERED RESPIRATORY STATUS TO MINIMIZE COMPLICATIONS AND REDUCE HOSPITALIZATION. [code = SN 1WK9 PT 1WK1 OT EFFECTIVE 02/10/2025K1 RESPIRATORY SYSTEM MANAGEMENT; RN TO ASSESS AND TEACH, DATA SUPPORT SPECIALIST/CARE AID TO OBSERVE AND TEACH RELATED TO ALTERED RESPIRATORY STATUS TO MINIMIZE COMPLICATIONS AND REDUCE HOSPITALIZATION.] Future Scheduled Test TRACHEOSTO MY CARE MANAGEMENT; RN/DATA SUPPORT SPECIALIST/CARE AID TO INSTRUCT PATIENT/CAREGIVER ON CARE AND MANAGEMENT OF TRACHEOSTOMY. RN/ DATA SUPPORT SPECIALIST/CARE AID TO PROVIDE SKILLED TEACHING ON TRACH COLLAR SUCTIONING PRN WITH 14 FR SUCTION CATHETER PER PATIENT TRACH CARE WITH INNER CANNULA: REMOVE INNER CANNULA, CLEANSE WITH NORMAL SALINE AND OR STERILE WATER AND REINSERT NON-DISPOSABLE CANNULA SIZE OF INNER CANNULA 5 BROOKS [code = TRACHEOSTOMY CARE MANAGEMENT; RN/DATA SUPPORT SPECIALIST/CARE AID TO INSTRUCT PATIENT/CAREGIVER ON CARE AND MANAGEMENT OF TRACHEOSTOMY. RN/ DATA SUPPORT SPECIALIST/CARE AID TO PROVIDE SKILLED TEACHING ON TRACH COLLAR SUCTIONING PRN WITH 14 FR SUCTION CATHETER PER PATIENT TRACH CARE WITH INNER CANNULA: REMOVE INNER CANNULA, CLEANSE WITH NORMAL SALINE AND OR STERILE WATER AND REINSERT NON-DISPOSABLE CANNULA SIZE OF INNER CANNULA 5 BROOKS] Future Scheduled Test FALL REDUC TION MANAGEMENT; RN TO ASSESS AND OBSERVE, DATA SUPPORT SPECIALIST/CARE AID TO OBSERVE FALL RISK FACTORS AND EDUCATE PATIENT/CAREGIVER ON STRATEGIES TO MINIMIZE THE RISK OF FALLING. [code = FALL REDUCTION MANAGEMENT; RN TO ASSESS AND OBSERVE, DATA SUPPORT SPECIALIST/CARE AID TO OBSERVE FALL RISK FACTORS AND EDUCATE PATIENT/CAREGIVER ON STRATEGIES TO MINIMIZE THE RISK OF FALLING.] Future Scheduled Test ANEMIA MAN AGEMENT; RN TO ASSESS AND TEACH, CARE AID/DATA SUPPORT SPECIALIST TO OBSERVE AND TEACH AND PROVIDE EDUCATION ON ANEMIA. [code = ANEMIA MANAGEMENT; RN TO ASSESS AND TEACH, CARE AID/DATA SUPPORT SPECIALIST TO OBSERVE AND TEACH AND PROVIDE EDUCATION ON ANEMIA.] Future Scheduled Test RN TO OBSE RVE, ASSESS, EVALUATE, AND DEVELOP AN INDIVIDUALIZED PLAN OF CARE. AGENCY MAY ACCEPT ORDERS FROM CONSULTING PHYSICIANS RN TO OBSERVE AND ASSESS, DATA SUPPORT SPECIALIST/CARE AID TO OBSERVE FOR RISK FOR FALLS AND INSTRUCT IN FALL PREVENTION, HOME SAFETY, MEDICATION MANAGEMENT, INFECTION PREVENTION, AND NUTRITION MANAGEMENT. RN/DATA SUPPORT SPECIALIST/CARE AID NURSE MAY PERFORM O2 SATURATION LEVEL ON ADMISSION AND PRN FOR RN TO ASSESS/DATA SUPPORT SPECIALIST TO OBSERVE PATIENT, WITH NOTIFICATION TO THE PHYSICIAN IF SATURATION IS 90% IN THE ABSENCE OF MORE SPECIFIC PARAMETERS FROM THE PHYSICIAN. AGENCY MAY PERFORM A RESUMPTION OF CARE VISIT FOLLOWING ANY HOSPITAL ADMISSION. RN/DATA SUPPORT SPECIALIST/CARE AID TO MONITOR CO-MORBID CONDITIONS LISTED ON THE PLAN OF CARE AND ANY NEW CONDITIONS THAT PRESENT THEMSELVES DURING THIS EPISODE TO IDENTIFY CHANGES AND INTERVENE TO MINIMIZE COMPLICATIONS. [code = RN TO OBSERVE, ASSESS, EVALUATE, AND DEVELOP AN INDIVIDUALIZED PLAN OF CARE. AGENCY MAY ACCEPT ORDERS FROM CONSULTING PHYSICIANS RN TO OBSERVE AND ASSESS, DATA SUPPORT SPECIALIST/CARE AID TO OBSERVE FOR RISK FOR FALLS AND INSTRUCT IN FALL PREVENTION, HOME SAFETY, MEDICATION MANAGEMENT, INFECTION PREVENTION, AND NUTRITION MANAGEMENT. RN/DATA SUPPORT SPECIALIST/CARE AID NURSE MAY PERFORM O2 SATURATION LEVEL ON ADMISSION AND PRN FOR RN TO ASSESS/DATA SUPPORT SPECIALIST TO OBSERVE PATIENT, WITH NOTIFICATION TO THE PHYSICIAN IF SATURATION IS 90% IN THE ABSENCE OF MORE SPECIFIC PARAMETERS FROM THE PHYSICIAN. AGENCY MAY PERFORM A RESUMPTION OF CARE VISIT FOLLOWING ANY HOSPITAL ADMISSION. RN/DATA SUPPORT SPECIALIST/CARE AID TO MONITOR CO-MORBID CONDITIONS LISTED ON THE PLAN OF CARE AND ANY NEW CONDITIONS THAT PRESENT THEMSELVES DURING THIS EPISODE TO IDENTIFY CHANGES AND INTERVENE TO MINIMIZE COMPLICATIONS.] Future Scheduled Test PAIN MANAG EMENT; RN TO ASSESS AND TEACH, CARE AID/DATA SUPPORT SPECIALIST TO OBSERVE AND TEACH AND PROVIDE EDUCATION ON PAIN MANAGEMENT TECHNIQUES. [code = PAIN MANAGEMENT; RN TO ASSESS AND TEACH, CARE AID/DATA SUPPORT SPECIALIST TO OBSERVE AND TEACH AND PROVIDE EDUCATION ON PAIN MANAGEMENT TECHNIQUES.] Future Scheduled Test RISK FOR H OSPITALIZATION; RN TO ASSESS/TEACH, CARE AID/DATA SUPPORT SPECIALIST TO OBSERVE/TEACH PATIENT/CAREGIVER ON RISK FOR HOSPITALIZATION/EMERGENCY ROOM VISITS, TEACH SIGNS AND SYMPTOMS THAT PUT PATIENT AT RISK, WHEN TO NOTIFY NURSE/PHYSICIAN OF COMPLICATIONS/DECLINE, AND WHEN TO CALL 911. [code = RISK FOR HOSPITALIZATION; RN TO ASSESS/TEACH, CARE AID/DATA SUPPORT SPECIALIST TO OBSERVE/TEACH PATIENT/CAREGIVER ON RISK FOR HOSPITALIZATION/EMERGENCY ROOM VISITS, TEACH SIGNS AND SYMPTOMS THAT PUT PATIENT AT RISK, WHEN TO NOTIFY NURSE/PHYSICIAN OF COMPLICATIONS/DECLINE, AND WHEN TO CALL 911.] Future Scheduled Test CARDIOVASC ULAR SYSTEM; RN TO ASSESS/TEACH, DATA SUPPORT SPECIALIST/CARE AID TO OBSERVE/TEACH RELATED TO ALTERED CARDIOVASCULAR STATUS TO MINIMIZE COMPLICATIONS AND REDUCE HOSPITALIZATION. [code = CARDIOVASCULAR SYSTEM; RN TO ASSESS/TEACH, DATA SUPPORT SPECIALIST/CARE AID TO OBSERVE/TEACH RELATED TO ALTERED CARDIOVASCULAR STATUS TO MINIMIZE COMPLICATIONS AND REDUCE HOSPITALIZATION.] Future Scheduled Test HYPERTENSI ON MANAGEMENT; RN TO ASSESS AND TEACH, DATA SUPPORT SPECIALIST/CARE AID TO OBSERVE AND TEACH WARNING SIGNS AND SYMPTOMS TO AVOID HOSPITALIZATION. [code = HYPERTENSION MANAGEMENT; RN TO ASSESS AND TEACH, DATA SUPPORT SPECIALIST/CARE AID TO OBSERVE AND TEACH WARNING SIGNS AND SYMPTOMS TO AVOID HOSPITALIZATION.] Future Scheduled Test HEART FAIL URE MONITORING RN/CARE AID/DATA SUPPORT SPECIALIST TO MONITOR PATIENT FOR SIGNS AND SYMPTOMS OF HEART FAILURE EXACERBATION, MONITOR FOR ADHERENCE WITH MEDICATION AND HEART FAILURE MANAGEMENT REGIMEN. [code = HEART FAILURE MONITORING RN/CARE AID/DATA SUPPORT SPECIALIST TO MONITOR PATIENT FOR SIGNS AND SYMPTOMS OF HEART FAILURE EXACERBATION, MONITOR FOR ADHERENCE WITH MEDICATION AND HEART FAILURE MANAGEMENT REGIMEN.] Future Scheduled Test DIABETES M ONITORING RN/CARE AID/DATA SUPPORT SPECIALIST TO MONITOR BLOOD SUGAR LOG FOR BLOOD SUGAR READINGS THAT ARE BEING CHECKED BY PATIENT, CAREGIVER NEEDED FOR SIGNS AND SYMPTOMS OF HYPER/HYPOGLYCEMIA. PATIENT THERAPEUTIC BLOOD SUGAR PARAMETERS ARE 70 - 300. REPORT BLOOD SUGARS OUT OF RANGE TO PHYSICIAN. NURSE MAY PERFORM FINGER STICK BLOOD GLUCOSE NEEDED FOR SIGNS AND SYMPTOMS OF HYPO AND HYPERGLYCEMIA. RN/CARE AID/DATA SUPPORT SPECIALIST TO MONITOR ADHERENCE OF PATIENT/CAREGIVER PERFORMING DIABETIC FOOT CARE AND MAY PERFORM DIABETIC FOOT CARE PRN. RN/CARE AID/DATA SUPPORT SPECIALIST TO MONITOR FOR ADHERENCE TO DIABETIC SELF-CARE AND MANAGEMENT INCLUDING MEDICATIONS. [code = DIABETES MONITORING RN/CARE AID/DATA SUPPORT SPECIALIST TO MONITOR BLOOD SUGAR LOG FOR BLOOD SUGAR READINGS THAT ARE BEING CHECKED BY PATIENT, CAREGIVER NEEDED FOR SIGNS AND SYMPTOMS OF HYPER/HYPOGLYCEMIA. PATIENT THERAPEUTIC BLOOD SUGAR PARAMETERS ARE 70 - 300. REPORT BLOOD SUGARS OUT OF RANGE TO PHYSICIAN. NURSE MAY PERFORM FINGER STICK BLOOD GLUCOSE NEEDED FOR SIGNS AND SYMPTOMS OF HYPO AND HYPERGLYCEMIA. RN/CARE AID/DATA SUPPORT SPECIALIST TO MONITOR ADHERENCE OF PATIENT/CAREGIVER PERFORMING DIABETIC FOOT CARE AND MAY PERFORM DIABETIC FOOT CARE PRN. RN/CARE AID/DATA SUPPORT SPECIALIST TO MONITOR FOR ADHERENCE TO DIABETIC SELF-CARE AND MANAGEMENT INCLUDING MEDICATIONS.] Future Scheduled Test HYPOTENSIO N MANAGEMENT; RN TO ASSESS AND TEACH/ DATA SUPPORT SPECIALIST /CARE AID TO OBSERVE AND TEACH WARNING SIGNS AND SYMPTOMS TO AVOID HOSPITALIZATION. [code = HYPOTENSION MANAGEMENT; RN TO ASSESS AND TEACH/ DATA SUPPORT SPECIALIST /CARE AID TO OBSERVE AND TEACH WARNING SIGNS AND SYMPTOMS TO AVOID HOSPITALIZATION.] Future Scheduled Test ARRHYTHMIA MANAGEMENT; RN TO ASSESS AND TEACH, DATA SUPPORT SPECIALIST/CARE AID TO OBSERVE AND TEACH WARNING SIGNS AND SYMPTOMS TO AVOID HOSPITALIZATION. [code = ARRHYTHMIA MANAGEMENT; RN TO ASSESS AND TEACH, DATA SUPPORT SPECIALIST/CARE AID TO OBSERVE AND TEACH WARNING SIGNS AND SYMPTOMS TO AVOID HOSPITALIZATION.] Future Scheduled Test MEDICATION MANAGEMENT; RN/DATA SUPPORT SPECIALIST/CARE AID TO REVIEW MEDICATIONS FOR INTERACTIONS, EFFECTIVENESS OF DRUG THERAPY, AND SIGNS/SYMPTOMS OF ADVERSE REACTIONS. MAY INSTRUCT AND REINFORCE MEDICATION TEACHING RELATED TO THE USE OF MEDICATIONS, DOSAGE, FREQUENCY, PURPOSE, SIDE EFFECTS, AND TO REPORT COMPLICATIONS. [code = MEDICATION MANAGEMENT; RN/DATA SUPPORT SPECIALIST/CARE AID TO REVIEW MEDICATIONS FOR INTERACTIONS, EFFECTIVENESS OF [...] EVAL UATE, OBSERVE / ASSESS, AND MONITOR, EMBEDDED SOFTWARE DESIGN ENGINEER TO OBSERVE AND MONITOR, PROVIDE SKILLED THERAPEUTIC INTERVENTION, ACTIVITY, EDUCATION, AND TRAINING TO ADDRESS GEN. WEAKNESS, POOR OVERALL ACTIVITY TOLERANCE, AND FUNCTIONAL LIMITATIONS IMPACTING SAFETY AND INDEPENDENCE. BED MOBILITY (PT/EMBEDDED SOFTWARE DESIGN ENGINEER) PT/EMBEDDED SOFTWARE DESIGN ENGINEER TO PROVIDE GAIT TRAINING FOR IMPROVED MOBILITY AND /OR TO NORMALIZE GAIT PATTERN THERAPEUTIC EXERCISES AND ESTABLISHING A HOME EXERCISE PROGRAM (PT/EMBEDDED SOFTWARE DESIGN ENGINEER) PT/EMBEDDED SOFTWARE DESIGN ENGINEER TO PROVIDE STAIR TRAINING PT / EMBEDDED SOFTWARE DESIGN ENGINEER TO MONITOR AND EDUCATE ON OXYGEN SATURATION DURING ADLS/IADLS, NOTIFY PHYSICIAN AND/OR THE RN CLINICAL PLANT PATHOLOGY TEACHER FOR PHYSICIAN NOTIFICATION AND IF O2 SATS BELOW PHYSICIAN ORDERED PARAMETERS AFTER 10 MIN OF REST PT / EMBEDDED SOFTWARE DESIGN ENGINEER TO OBSERVE FOR EARLY SIGNS AND SYMPTOMS OF DEPRESSION OR DEPRESSION GETTING WORSE AND TO EDUCATE ON HOW TO FIND HELP. PT / EMBEDDED SOFTWARE DESIGN ENGINEER MAY EDUCATE ON PAIN MANAGEMENT CLINICALLY INDICATED, INCLUDING NON-PHARMACOLOGICAL PAIN REDUCTION TECHNIQUES PT / EMBEDDED SOFTWARE DESIGN ENGINEER TO MONITOR FOR HYPO/HYPERGLYCEMIA AND CONDUCT ROUTINE FOOT INSPECTIONS. RECORD PATIENT REPORTED BLOOD SUGAR LEVELS AND NOTIFY PHYSICIAN AND/OR THE RN CLINICAL PLANT PATHOLOGY TEACHER FOR PHYSICIAN NOTIFICATION IF BLOOD SUGAR LEVELS ARE OUTSIDE ORDERED PARAMETERS. TEACH PATIENT/CAREGIVER ON DAILY FOOT INSPECTIONS PT / EMBEDDED SOFTWARE DESIGN ENGINEER TO INSTRUCT PATIENT/CAREGIVER ON RISK FOR HOSPITALIZATION/EMERGENCY ROOM VISITS, TEACH SIGNS AND SYMPTOMS THAT PUT PATIENT AT RISK, WHEN TO NOTIFY NURSE/PHYSICIAN OF COMPLICATIONS/DECLINE, AND WHEN TO CALL 911. PT/EMBEDDED SOFTWARE DESIGN ENGINEER TO EDUCATE ON ARTHRITIS SELF-MANAGEMENT PT / EMBEDDED SOFTWARE DESIGN ENGINEER TO EDUCATE ON HEART FAILURE SELF-MANAGEMENT PT / EMBEDDED SOFTWARE DESIGN ENGINEER TO EDUCATE ON HYPERTENSION SELF-MANAGEMENT PT TO ASSESS / EMBEDDED SOFTWARE DESIGN ENGINEER TO MONITOR CARDIO/RESPIRATORY SYSTEM; AND NOTIFY THE PHYSICIAN AND/OR THE RN CLINICAL PLANT PATHOLOGY TEACHER FOR PHYSICIAN NOTIFICATION FOR EARLY SIGNS AND SYMPTOMS OF EXACERBATION OR DETERIORATION. PT / EMBEDDED SOFTWARE DESIGN ENGINEER TO EDUCATE ON ATRIAL FIBRILLATION SELF-MANAGEMENT. PT / EMBEDDED SOFTWARE DESIGN ENGINEER TO EDUCATE ON PNEUMONIA / ASPIRATION PNEUMONIA SELF-MANAGEMENT. PT/EMBEDDED SOFTWARE DESIGN ENGINEER TO IDENTIFY FALL RISK FACTORS; EDUCATE THE PATIENT/CAREGIVER ON WAYS TO REDUCE FALL RISK FACTORS AND ESTABLISH HOME EXERCISE PROGRAM TO MINIMIZE FALL RISK. MAY TEACH THE PATIENT FLOOR RECOVERY WHEN CLINICALLY APPROPRIATE [code = PT TO EVALUATE, OBSERVE / ASSESS, AND MONITOR, EMBEDDED SOFTWARE DESIGN ENGINEER TO OBSERVE AND MONITOR, PROVIDE SKILLED THERAPEUTIC INTERVENTION, ACTIVITY, EDUCATION, AND TRAINING TO ADDRESS GEN. WEAKNESS, POOR OVERALL ACTIVITY TOLERANCE, AND FUNCTIONAL LIMITATIONS IMPACTING SAFETY AND INDEPENDENCE. BED MOBILITY (PT/EMBEDDED SOFTWARE DESIGN ENGINEER) PT/EMBEDDED SOFTWARE DESIGN ENGINEER TO PROVIDE GAIT TRAINING FOR IMPROVED MOBILITY AND /OR TO NORMALIZE GAIT PATTERN THERAPEUTIC EXERCISES AND ESTABLISHING A HOME EXERCISE PROGRAM (PT/EMBEDDED SOFTWARE DESIGN ENGINEER) PT/EMBEDDED SOFTWARE DESIGN ENGINEER TO PROVIDE STAIR TRAINING PT / EMBEDDED SOFTWARE DESIGN ENGINEER TO MONITOR AND EDUCATE ON OXYGEN SATURATION DURING ADLS/IADLS, NOTIFY PHYSICIAN AND/OR THE RN CLINICAL PLANT PATHOLOGY TEACHER FOR PHYSICIAN NOTIFICATION AND IF O2 SATS BELOW PHYSICIAN ORDERED PARAMETERS AFTER 10 MIN OF REST PT / EMBEDDED SOFTWARE DESIGN ENGINEER TO OBSERVE FOR EARLY SIGNS AND SYMPTOMS OF DEPRESSION OR DEPRESSION GETTING WORSE AND TO EDUCATE ON HOW TO FIND HELP. PT / EMBEDDED SOFTWARE DESIGN ENGINEER MAY EDUCATE ON PAIN MANAGEMENT CLINICALLY INDICATED, INCLUDING NON-PHARMACOLOGICAL PAIN REDUCTION TECHNIQUES PT / EMBEDDED SOFTWARE DESIGN ENGINEER TO MONITOR FOR HYPO/HYPERGLYCEMIA AND CONDUCT ROUTINE FOOT INSPECTIONS. RECORD PATIENT REPORTED BLOOD SUGAR LEVELS AND NOTIFY PHYSICIAN AND/OR THE RN CLINICAL PLANT PATHOLOGY TEACHER FOR PHYSICIAN NOTIFICATION IF BLOOD SUGAR LEVELS ARE OUTSIDE ORDERED PARAMETERS. TEACH PATIENT/CAREGIVER ON DAILY FOOT INSPECTIONS PT / EMBEDDED SOFTWARE DESIGN ENGINEER TO INSTRUCT PATIENT/CAREGIVER ON RISK FOR HOSPITALIZATION/EMERGENCY ROOM VISITS, TEACH SIGNS AND SYMPTOMS THAT PUT PATIENT AT RISK, WHEN TO NOTIFY NURSE/PHYSICIAN OF COMPLICATIONS/DECLINE, AND WHEN TO CALL 911. PT/EMBEDDED SOFTWARE DESIGN ENGINEER TO EDUCATE ON ARTHRITIS SELF-MANAGEMENT PT / EMBEDDED SOFTWARE DESIGN ENGINEER TO EDUCATE ON HEART FAILURE SELF-MANAGEMENT PT / EMBEDDED SOFTWARE DESIGN ENGINEER TO EDUCATE ON HYPERTENSION SELF-MANAGEMENT PT TO ASSESS / EMBEDDED SOFTWARE DESIGN ENGINEER TO MONITOR CARDIO/RESPIRATORY SYSTEM; AND NOTIFY THE PHYSICIAN AND/OR THE RN CLINICAL PLANT PATHOLOGY TEACHER FOR PHYSICIAN NOTIFICATION FOR EARLY SIGNS AND SYMPTOMS OF EXACERBATION OR DETERIORATION. PT / EMBEDDED SOFTWARE DESIGN ENGINEER TO EDUCATE ON ATRIAL FIBRILLATION SELF-MANAGEMENT. PT / EMBEDDED SOFTWARE DESIGN ENGINEER TO EDUCATE ON PNEUMONIA / ASPIRATION PNEUMONIA SELF-MANAGEMENT. PT/EMBEDDED SOFTWARE DESIGN ENGINEER TO IDENTIFY FALL RISK FACTORS; EDUCATE THE PATIENT/CAREGIVER ON WAYS TO REDUCE FALL RISK FACTORS AND ESTABLISH HOME EXERCISE PROGRAM TO MINIMIZE FALL RISK. MAY TEACH THE PATIENT FLOOR RECOVERY WHEN CLINICALLY APPROPRIATE] Future Scheduled Test AGENCY MAY PERFORM A RESUMPTION OF CARE VISIT FOLLOWING ANY HOSPITAL ADMISSION. OT TO EVALUATE, OBSERVE / ASSESS, AND MONITOR, DRIVER MATERIAL HANDLER TO OBSERVE AND MONITOR, PROVIDE SKILLED THERAPEUTIC INTERVENTION, ACTIVITY, EDUCATION, AND TRAINING TO ADDRESS SAFETY AND INDEPENDENCE OF ADLS AND FUNCTIONAL TRANSFERS IN HOME ENVIRONMENT. ACTIVITIES OF DAILY LIVING (OT/MARIANNE) THERAPEUTIC EXERCISE (OT/DRIVER MATERIAL HANDLER) ENERGY CONSERVATION/ACTIVITY DEMAND (OT/DRIVER MATERIAL HANDLER) OT/DRIVER MATERIAL HANDLER TO MONITOR AND EDUCATE ON OXYGEN SATURATION DURING ADLS/IADLS, NOTIFY PHYSICIAN AND/OR THE RN CLINICAL PLANT PATHOLOGY TEACHER FOR PHYSICIAN NOTIFICATION AND IF O2 SATS BELOW 90% AFTER 10 MIN OF REST. OT / DRIVER MATERIAL HANDLER TO IDENTIFY FALL RISK FACTORS; EDUCATE THE PATIENT/CAREGIVER ON WAYS TO REDUCE FALL RISK FACTORS AND ESTABLISH HOME EXERCISE PROGRAM TO MINIMIZE FALL RISK. MAY TEACH THE PATIENT FLOOR RECOVERY WHEN CLINICALLY APPROPRIATE. OT/DRIVER MATERIAL HANDLER TO EDUCATE ON HYPERTENSION SELF-MANAGEMENT OT/MARIANNE TO EDUCATE ON ATRIAL FIBRILLATION SELF-MANAGEMENT. [code = AGENCY MAY PERFORM A RESUMPTION OF CARE VISIT FOLLOWING ANY HOSPITAL ADMISSION. OT TO EVALUATE, OBSERVE / ASSESS, AND MONITOR, DRIVER MATERIAL HANDLER TO OBSERVE AND MONITOR, PROVIDE SKILLED THERAPEUTIC INTERVENTION, ACTIVITY, EDUCATION, AND TRAINING TO ADDRESS SAFETY AND INDEPENDENCE OF ADLS AND FUNCTIONAL TRANSFERS IN HOME ENVIRONMENT. ACTIVITIES OF DAILY LIVING (OT/MARIANNE) THERAPEUTIC EXERCISE (OT/DRIVER MATERIAL HANDLER) ENERGY CONSERVATION/ACTIVITY DEMAND (OT/MARIANNE) OT/DRIVER MATERIAL HANDLER TO MONITOR AND EDUCATE ON OXYGEN SATURATION DURING ADLS/IADLS, NOTIFY PHYSICIAN AND/OR THE RN CLINICAL PLANT PATHOLOGY TEACHER FOR PHYSICIAN NOTIFICATION AND IF O2 SATS BELOW 90% AFTER 10 MIN OF REST. OT / MARIANNE TO IDENTIFY FALL RISK FACTORS; EDUCATE THE PATIENT/CAREGIVER ON WAYS TO REDUCE FALL RISK FACTORS AND ESTABLISH HOME EXERCISE PROGRAM TO MINIMIZE FALL RISK. MAY TEACH THE PATIENT FLOOR RECOVERY WHEN CLINICALLY APPROPRIATE. OT/DRIVER MATERIAL HANDLER TO EDUCATE ON HYPERTENSION SELF-MANAGEMENT OT/MARIANNE TO [...] End Date/Time Encounter Type Admission Type Attending [facility] Care Department Encounter ID Discharge Date Discharge Status Discharge Condition Discharge Reason Percent Goals Met 2025-02-07 00:00:00 2025-04-07 00:00:00 Outpatient NEW ADMISSION [facility] [id number]
--- OUTSIDE RECORDS SUMMARY | 2025-04-06 18:00 | XMS_ITS | Clinical Summary ---
Author Organization Unknown Care Team Providers Care Medical Transcription Name Role Phone DIGNA ARIEL, ESTRELLA Unavailable Unava dinora STOKES RN, FRANKIE Unavailable Unavailabl e KARI PT, DIDI Unavailable Unavailable NAT OPERATIONS SUPPORT PROFESSIONALS, GAUDENCIO Unavailable Unavailabl e RADHA OT, ROLANDO Unavailable Unavailable JOANNE STEVEN, HATTIE Unavailable Unavailable Payers Payer Name Policy Type Policy Number Effective Date Expira tion Date MEDICARE[facility] [id number] Problems Condition Name Condition Details Condition Category Status Onset Date Resolution Date Last Treatment Date Treating Clinician Comments 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 02-07 [...] OF PNEUMONIA (RECURRENT) Active 02-07 00:00: 00 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 (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) USE OF SYSTEMIC STEROIDS Active 02-07 [...] 80 mg tablet 02-07 00:00: 00 Yes [id number] CHOLESTEROL 1 tablet DAILY 1 tablet DAILY (route: oral) Med Classific ation: Cardiovas cular Therapy Agents digoxin 125 mcg (0.125 mg) tablet 02-07 00:00: 00 02-21 23:59 :00 No [id number] HEART RHYTHM 1 tablet DAILY 1 tablet DAILY (route: oral) Med Classific ation: Cardiovas cular Therapy Agents escitalopra m 10 mg tablet 02-07 00:00: 00 Yes [id number] MOOD 1 tablet DAILY 1 tablet DAILY (route: oral) Med Classific ation: Central Nervous System Agents ezetimibe 10 mg tablet 02-07 00:00: 00 Yes [id number] CHOLESTEROL 1 tablet DAILY 1 tablet DAILY (route: oral) Med Classific ation: Cardiovas cular Therapy Agents metoprolol succinate ER 25 mg tablet,exte nded release 24 hr 02-07 00:00: 00 02-21 23:59 :00 No [id number] BLOOD PRESSURE 0.5 tablet DAILY 0.5 tablet DAILY (route: oral) Med Classific ation: Cardiovas cular Therapy Agents pantoprazol e 40 mg tablet,joão yed release 02-07 00:00: 00 02-21 23:59 :00 No [id number] STOMACH ACID 1 tablet DAILY 1 tablet DAILY (route: oral) Med Classific ation: Gastroint estinal Therapy Agents prednisone 5 mg tablet 02-07 00:00: 00 Yes [id number] ADRENAL INSUFFICIEN CY 1 tablet DAILY 1 tablet DAILY (route: oral) Med Classific ation: Endocrine spironolact one 25 mg tablet 02-07 00:00: 00 Yes [id number] FLUID RETENTION 0.5 tablet DAILY 0.5 tablet DAILY (route: oral) Med Classific ation: Cardiovas cular Therapy Agents tamsulosin 0.4 mg capsule 02-07 00:00: 00 02-21 23:59 :00 No [id number] URINARY HEALTH 1 capsule DAILY 1 capsule DAILY (route: oral) Med Classific ation: Genitouri nary Therapy acetaminoph en 325 mg tablet 2024-05 00:00: 00 Yes [id number] PAIN 2 tablet 2 TIMES DAILY 2 tablet 2 TIMES DAILY (route: oral) Med Classific ation: Analgesic , Anti-infl ammatory or Antipyret ic aspirin 81 mg tablet 2024-05 00:00: 00 Yes [id number] ANTICOAGULA NT 1 tablet DAILY 1 tablet DAILY (route: oral) Med Classific ation: Hematolog ical Agents ipratropium 0.5 mg-albutero l 3 mg (2.5 mg base)/3 mL nebulizatio n soln 2024-05 00:00: 00 Yes [id number] COPD 3 mL EVERY 6 HOURS 3 mL EVERY 6 HOURS (route: inhalation ) Med Classific ation: Respirato ry Therapy Agents Lanoxin 62.5 mcg (0.0625 mg) tablet 2024-05 00:00: 00 Yes [id number] CHF 1 tablet DAILY 1 tablet DAILY (route: oral) Med Classific ation: Cardiovas cular Therapy Agents Lasix 20 mg tablet 2024-05 00:00: 00 Yes [id number] CHF 1 tablet DAILY 1 tablet DAILY (route: oral) Med Classific ation: Cardiovas cular Therapy Agents Toprol XL 25 mg tablet,exte nded release 2024-05 00:00: 00 Yes [id number] BP 25 mg DAILY 25 mg DAILY [...] SYSTEM MANAGEMENT; RN TO ASSESS AND TEACH, ENGAGEMENT EXECUTIVE/SUPERVISOR PRECISION OPTICAL ELEMENTS TO OBSERVE AND TEACH RELATED TO ALTERED RESPIRATORY STATUS TO MINIMIZE COMPLICATIONS AND REDUCE HOSPITALIZATION. [code = SN 1WK9 PT 1WK1 OT EFFECTIVE 02/10/2025K1 RESPIRATORY SYSTEM MANAGEMENT; RN TO ASSESS AND TEACH, ENGAGEMENT EXECUTIVE/SUPERVISOR PRECISION OPTICAL ELEMENTS TO OBSERVE AND TEACH RELATED TO ALTERED RESPIRATORY STATUS TO MINIMIZE COMPLICATIONS AND REDUCE HOSPITALIZATION.] Future Scheduled Test TRACHEOSTO MY CARE MANAGEMENT; RN/ENGAGEMENT EXECUTIVE/SUPERVISOR PRECISION OPTICAL ELEMENTS TO INSTRUCT PATIENT/CAREGIVER ON CARE AND MANAGEMENT OF TRACHEOSTOMY. RN/ ENGAGEMENT EXECUTIVE/SUPERVISOR PRECISION OPTICAL ELEMENTS TO PROVIDE SKILLED TEACHING ON TRACH COLLAR SUCTIONING PRN WITH 14 FR SUCTION CATHETER PER PATIENT TRACH CARE WITH INNER CANNULA: REMOVE INNER CANNULA, CLEANSE WITH NORMAL SALINE AND OR STERILE WATER AND REINSERT NON-DISPOSABLE CANNULA SIZE OF INNER CANNULA 5 BROOKS [code = TRACHEOSTOMY CARE MANAGEMENT; RN/ENGAGEMENT EXECUTIVE/SUPERVISOR PRECISION OPTICAL ELEMENTS TO INSTRUCT PATIENT/CAREGIVER ON CARE AND MANAGEMENT OF TRACHEOSTOMY. RN/ ENGAGEMENT EXECUTIVE/SUPERVISOR PRECISION OPTICAL ELEMENTS TO PROVIDE SKILLED TEACHING ON TRACH COLLAR SUCTIONING PRN WITH 14 FR SUCTION CATHETER PER PATIENT TRACH CARE WITH INNER CANNULA: REMOVE INNER CANNULA, CLEANSE WITH NORMAL SALINE AND OR STERILE WATER AND REINSERT NON-DISPOSABLE CANNULA SIZE OF INNER CANNULA 5 BROOKS] Future Scheduled Test FALL REDUC TION MANAGEMENT; RN TO ASSESS AND OBSERVE, ENGAGEMENT EXECUTIVE/SUPERVISOR PRECISION OPTICAL ELEMENTS TO OBSERVE FALL RISK FACTORS AND EDUCATE PATIENT/CAREGIVER ON STRATEGIES TO MINIMIZE THE RISK OF FALLING. [code = FALL REDUCTION MANAGEMENT; RN TO ASSESS AND OBSERVE, ENGAGEMENT EXECUTIVE/SUPERVISOR PRECISION OPTICAL ELEMENTS TO OBSERVE FALL RISK FACTORS AND EDUCATE PATIENT/CAREGIVER ON STRATEGIES TO MINIMIZE THE RISK OF FALLING.] Future Scheduled Test ANEMIA MAN AGEMENT; RN TO ASSESS AND TEACH, SUPERVISOR PRECISION OPTICAL ELEMENTS/ENGAGEMENT EXECUTIVE TO OBSERVE AND TEACH AND PROVIDE EDUCATION ON ANEMIA. [code = ANEMIA MANAGEMENT; RN TO ASSESS AND TEACH, SUPERVISOR PRECISION OPTICAL ELEMENTS/ENGAGEMENT EXECUTIVE TO OBSERVE AND TEACH AND PROVIDE EDUCATION ON ANEMIA.] Future Scheduled Test RN TO OBSE RVE, ASSESS, EVALUATE, AND DEVELOP AN INDIVIDUALIZED PLAN OF CARE. AGENCY MAY ACCEPT ORDERS FROM CONSULTING PHYSICIANS RN TO OBSERVE AND ASSESS, ENGAGEMENT EXECUTIVE/SUPERVISOR PRECISION OPTICAL ELEMENTS TO OBSERVE FOR RISK FOR FALLS AND INSTRUCT IN FALL PREVENTION, HOME SAFETY, MEDICATION MANAGEMENT, INFECTION PREVENTION, AND NUTRITION MANAGEMENT. RN/ENGAGEMENT EXECUTIVE/SUPERVISOR PRECISION OPTICAL ELEMENTS NURSE MAY PERFORM O2 SATURATION LEVEL ON ADMISSION AND PRN FOR RN TO ASSESS/ENGAGEMENT EXECUTIVE TO OBSERVE PATIENT, WITH NOTIFICATION TO THE PHYSICIAN IF SATURATION IS 90% IN THE ABSENCE OF MORE SPECIFIC PARAMETERS FROM THE PHYSICIAN. AGENCY MAY PERFORM A RESUMPTION OF CARE VISIT FOLLOWING ANY HOSPITAL ADMISSION. RN/ENGAGEMENT EXECUTIVE/SUPERVISOR PRECISION OPTICAL ELEMENTS TO MONITOR CO-MORBID CONDITIONS LISTED ON THE PLAN OF CARE AND ANY NEW CONDITIONS THAT PRESENT THEMSELVES DURING THIS EPISODE TO IDENTIFY CHANGES AND INTERVENE TO MINIMIZE COMPLICATIONS. [code = RN TO OBSERVE, ASSESS, EVALUATE, AND DEVELOP AN INDIVIDUALIZED PLAN OF CARE. AGENCY MAY ACCEPT ORDERS FROM CONSULTING PHYSICIANS RN TO OBSERVE AND ASSESS, ENGAGEMENT EXECUTIVE/SUPERVISOR PRECISION OPTICAL ELEMENTS TO OBSERVE FOR RISK FOR FALLS AND INSTRUCT IN FALL PREVENTION, HOME SAFETY, MEDICATION MANAGEMENT, INFECTION PREVENTION, AND NUTRITION MANAGEMENT. RN/ENGAGEMENT EXECUTIVE/SUPERVISOR PRECISION OPTICAL ELEMENTS NURSE MAY PERFORM O2 SATURATION LEVEL ON ADMISSION AND PRN FOR RN TO ASSESS/ENGAGEMENT EXECUTIVE TO OBSERVE PATIENT, WITH NOTIFICATION TO THE PHYSICIAN IF SATURATION IS 90% IN THE ABSENCE OF MORE SPECIFIC PARAMETERS FROM THE PHYSICIAN. AGENCY MAY PERFORM A RESUMPTION OF CARE VISIT FOLLOWING ANY HOSPITAL ADMISSION. RN/ENGAGEMENT EXECUTIVE/SUPERVISOR PRECISION OPTICAL ELEMENTS TO MONITOR CO-MORBID CONDITIONS LISTED ON THE PLAN OF CARE AND ANY NEW CONDITIONS THAT PRESENT THEMSELVES DURING THIS EPISODE TO IDENTIFY CHANGES AND INTERVENE TO MINIMIZE COMPLICATIONS.] Future Scheduled Test PAIN MANAG EMENT; RN TO ASSESS AND TEACH, SUPERVISOR PRECISION OPTICAL ELEMENTS/ENGAGEMENT EXECUTIVE TO OBSERVE AND TEACH AND PROVIDE EDUCATION ON PAIN MANAGEMENT TECHNIQUES. [code = PAIN MANAGEMENT; RN TO ASSESS AND TEACH, SUPERVISOR PRECISION OPTICAL ELEMENTS/ENGAGEMENT EXECUTIVE TO OBSERVE AND TEACH AND PROVIDE EDUCATION ON PAIN MANAGEMENT TECHNIQUES.] Future Scheduled Test RISK FOR H OSPITALIZATION; RN TO ASSESS/TEACH, SUPERVISOR PRECISION OPTICAL ELEMENTS/ENGAGEMENT EXECUTIVE TO OBSERVE/TEACH PATIENT/CAREGIVER ON RISK FOR HOSPITALIZATION/EMERGENCY ROOM VISITS, TEACH SIGNS AND SYMPTOMS THAT PUT PATIENT AT RISK, WHEN TO NOTIFY NURSE/PHYSICIAN OF COMPLICATIONS/DECLINE, AND WHEN TO CALL 911. [code = RISK FOR HOSPITALIZATION; RN TO ASSESS/TEACH, SUPERVISOR PRECISION OPTICAL ELEMENTS/ENGAGEMENT EXECUTIVE TO OBSERVE/TEACH PATIENT/CAREGIVER ON RISK FOR HOSPITALIZATION/EMERGENCY ROOM VISITS, TEACH SIGNS AND SYMPTOMS THAT PUT PATIENT AT RISK, WHEN TO NOTIFY NURSE/PHYSICIAN OF COMPLICATIONS/DECLINE, AND WHEN TO CALL 911.] Future Scheduled Test CARDIOVASC ULAR SYSTEM; RN TO ASSESS/TEACH, ENGAGEMENT EXECUTIVE/SUPERVISOR PRECISION OPTICAL ELEMENTS TO OBSERVE/TEACH RELATED TO ALTERED CARDIOVASCULAR STATUS TO MINIMIZE COMPLICATIONS AND REDUCE HOSPITALIZATION. [code = CARDIOVASCULAR SYSTEM; RN TO ASSESS/TEACH, ENGAGEMENT EXECUTIVE/SUPERVISOR PRECISION OPTICAL ELEMENTS TO OBSERVE/TEACH RELATED TO ALTERED CARDIOVASCULAR STATUS TO MINIMIZE COMPLICATIONS AND REDUCE HOSPITALIZATION.] Future Scheduled Test HYPERTENSI ON MANAGEMENT; RN TO ASSESS AND TEACH, ENGAGEMENT EXECUTIVE/SUPERVISOR PRECISION OPTICAL ELEMENTS TO OBSERVE AND TEACH WARNING SIGNS AND SYMPTOMS TO AVOID HOSPITALIZATION. [code = HYPERTENSION MANAGEMENT; RN TO ASSESS AND TEACH, ENGAGEMENT EXECUTIVE/SUPERVISOR PRECISION OPTICAL ELEMENTS TO OBSERVE AND TEACH WARNING SIGNS AND SYMPTOMS TO AVOID HOSPITALIZATION.] Future Scheduled Test HEART FAIL URE MONITORING RN/SUPERVISOR PRECISION OPTICAL ELEMENTS/ENGAGEMENT EXECUTIVE TO MONITOR PATIENT FOR SIGNS AND SYMPTOMS OF HEART FAILURE EXACERBATION, MONITOR FOR ADHERENCE WITH MEDICATION AND HEART FAILURE MANAGEMENT REGIMEN. [code = HEART FAILURE MONITORING RN/SUPERVISOR PRECISION OPTICAL ELEMENTS/ENGAGEMENT EXECUTIVE TO MONITOR PATIENT FOR SIGNS AND SYMPTOMS OF HEART FAILURE EXACERBATION, MONITOR FOR ADHERENCE WITH MEDICATION AND HEART FAILURE MANAGEMENT REGIMEN.] Future Scheduled Test DIABETES M ONITORING RN/SUPERVISOR PRECISION OPTICAL ELEMENTS/ENGAGEMENT EXECUTIVE TO MONITOR BLOOD SUGAR LOG FOR BLOOD SUGAR READINGS THAT ARE BEING CHECKED BY PATIENT, CAREGIVER NEEDED FOR SIGNS AND SYMPTOMS OF HYPER/HYPOGLYCEMIA. PATIENT THERAPEUTIC BLOOD SUGAR PARAMETERS ARE 70 - 300. REPORT BLOOD SUGARS OUT OF RANGE TO PHYSICIAN. NURSE MAY PERFORM FINGER STICK BLOOD GLUCOSE NEEDED FOR SIGNS AND SYMPTOMS OF HYPO AND HYPERGLYCEMIA. RN/SUPERVISOR PRECISION OPTICAL ELEMENTS/ENGAGEMENT EXECUTIVE TO MONITOR ADHERENCE OF PATIENT/CAREGIVER PERFORMING DIABETIC FOOT CARE AND MAY PERFORM DIABETIC FOOT CARE PRN. RN/SUPERVISOR PRECISION OPTICAL ELEMENTS/ENGAGEMENT EXECUTIVE TO MONITOR FOR ADHERENCE TO DIABETIC SELF-CARE AND MANAGEMENT INCLUDING MEDICATIONS. [code = DIABETES MONITORING RN/SUPERVISOR PRECISION OPTICAL ELEMENTS/ENGAGEMENT EXECUTIVE TO MONITOR BLOOD SUGAR LOG FOR BLOOD SUGAR READINGS THAT ARE BEING CHECKED BY PATIENT, CAREGIVER NEEDED FOR SIGNS AND SYMPTOMS OF HYPER/HYPOGLYCEMIA. PATIENT THERAPEUTIC BLOOD SUGAR PARAMETERS ARE 70 - 300. REPORT BLOOD SUGARS OUT OF RANGE TO PHYSICIAN. NURSE MAY PERFORM FINGER STICK BLOOD GLUCOSE NEEDED FOR SIGNS AND SYMPTOMS OF HYPO AND HYPERGLYCEMIA. RN/SUPERVISOR PRECISION OPTICAL ELEMENTS/ENGAGEMENT EXECUTIVE TO MONITOR ADHERENCE OF PATIENT/CAREGIVER PERFORMING DIABETIC FOOT CARE AND MAY PERFORM DIABETIC FOOT CARE PRN. RN/SUPERVISOR PRECISION OPTICAL ELEMENTS/ENGAGEMENT EXECUTIVE TO MONITOR FOR ADHERENCE TO DIABETIC SELF-CARE AND MANAGEMENT INCLUDING MEDICATIONS.] Future Scheduled Test HYPOTENSIO N MANAGEMENT; RN TO ASSESS AND TEACH/ ENGAGEMENT EXECUTIVE /SUPERVISOR PRECISION OPTICAL ELEMENTS TO OBSERVE AND TEACH WARNING SIGNS AND SYMPTOMS TO AVOID HOSPITALIZATION. [code = HYPOTENSION MANAGEMENT; RN TO ASSESS AND TEACH/ ENGAGEMENT EXECUTIVE /SUPERVISOR PRECISION OPTICAL ELEMENTS TO OBSERVE AND TEACH WARNING SIGNS AND SYMPTOMS TO AVOID HOSPITALIZATION.] Future Scheduled Test ARRHYTHMIA MANAGEMENT; RN TO ASSESS AND TEACH, ENGAGEMENT EXECUTIVE/SUPERVISOR PRECISION OPTICAL ELEMENTS TO OBSERVE AND TEACH WARNING SIGNS AND SYMPTOMS TO AVOID HOSPITALIZATION. [code = ARRHYTHMIA MANAGEMENT; RN TO ASSESS AND TEACH, ENGAGEMENT EXECUTIVE/SUPERVISOR PRECISION OPTICAL ELEMENTS TO OBSERVE AND TEACH WARNING SIGNS AND SYMPTOMS TO AVOID HOSPITALIZATION.] Future Scheduled Test MEDICATION MANAGEMENT; RN/ENGAGEMENT EXECUTIVE/SUPERVISOR PRECISION OPTICAL ELEMENTS TO REVIEW MEDICATIONS FOR INTERACTIONS, EFFECTIVENESS OF DRUG THERAPY, AND SIGNS/SYMPTOMS OF ADVERSE REACTIONS. MAY INSTRUCT AND REINFORCE MEDICATION TEACHING RELATED TO THE USE OF MEDICATIONS, DOSAGE, FREQUENCY, PURPOSE, SIDE EFFECTS, AND TO REPORT COMPLICATIONS. [code = MEDICATION MANAGEMENT; RN/ENGAGEMENT EXECUTIVE/SUPERVISOR PRECISION OPTICAL ELEMENTS TO REVIEW MEDICATIONS FOR INTERACTIONS, EFFECTIVENESS OF [...] EVAL UATE, OBSERVE / ASSESS, AND MONITOR, OPERATIONS SUPPORT PROFESSIONALS TO OBSERVE AND MONITOR, PROVIDE SKILLED THERAPEUTIC INTERVENTION, ACTIVITY, EDUCATION, AND TRAINING TO ADDRESS GEN. WEAKNESS, POOR OVERALL ACTIVITY TOLERANCE, AND FUNCTIONAL LIMITATIONS IMPACTING SAFETY AND INDEPENDENCE. BED MOBILITY (PT/OPERATIONS SUPPORT PROFESSIONALS) PT/OPERATIONS SUPPORT PROFESSIONALS TO PROVIDE GAIT TRAINING FOR IMPROVED MOBILITY AND /OR TO NORMALIZE GAIT PATTERN THERAPEUTIC EXERCISES AND ESTABLISHING A HOME EXERCISE PROGRAM (PT/OPERATIONS SUPPORT PROFESSIONALS) PT/OPERATIONS SUPPORT PROFESSIONALS TO PROVIDE STAIR TRAINING PT / OPERATIONS SUPPORT PROFESSIONALS TO MONITOR AND EDUCATE ON OXYGEN SATURATION DURING ADLS/IADLS, NOTIFY PHYSICIAN AND/OR THE RN CLINICAL TAPING FOREMAN FOR PHYSICIAN NOTIFICATION AND IF O2 SATS BELOW PHYSICIAN ORDERED PARAMETERS AFTER 10 MIN OF REST PT / OPERATIONS SUPPORT PROFESSIONALS TO OBSERVE FOR EARLY SIGNS AND SYMPTOMS OF DEPRESSION OR DEPRESSION GETTING WORSE AND TO EDUCATE ON HOW TO FIND HELP. PT / OPERATIONS SUPPORT PROFESSIONALS MAY EDUCATE ON PAIN MANAGEMENT CLINICALLY INDICATED, INCLUDING NON-PHARMACOLOGICAL PAIN REDUCTION TECHNIQUES PT / OPERATIONS SUPPORT PROFESSIONALS TO MONITOR FOR HYPO/HYPERGLYCEMIA AND CONDUCT ROUTINE FOOT INSPECTIONS. RECORD PATIENT REPORTED BLOOD SUGAR LEVELS AND NOTIFY PHYSICIAN AND/OR THE RN CLINICAL TAPING FOREMAN FOR PHYSICIAN NOTIFICATION IF BLOOD SUGAR LEVELS ARE OUTSIDE ORDERED PARAMETERS. TEACH PATIENT/CAREGIVER ON DAILY FOOT INSPECTIONS PT / OPERATIONS SUPPORT PROFESSIONALS TO INSTRUCT PATIENT/CAREGIVER ON RISK FOR HOSPITALIZATION/EMERGENCY ROOM VISITS, TEACH SIGNS AND SYMPTOMS THAT PUT PATIENT AT RISK, WHEN TO NOTIFY NURSE/PHYSICIAN OF COMPLICATIONS/DECLINE, AND WHEN TO CALL 911. PT/OPERATIONS SUPPORT PROFESSIONALS TO EDUCATE ON ARTHRITIS SELF-MANAGEMENT PT / OPERATIONS SUPPORT PROFESSIONALS TO EDUCATE ON HEART FAILURE SELF-MANAGEMENT PT / OPERATIONS SUPPORT PROFESSIONALS TO EDUCATE ON HYPERTENSION SELF-MANAGEMENT PT TO ASSESS / OPERATIONS SUPPORT PROFESSIONALS TO MONITOR CARDIO/RESPIRATORY SYSTEM; AND NOTIFY THE PHYSICIAN AND/OR THE RN CLINICAL TAPING FOREMAN FOR PHYSICIAN NOTIFICATION FOR EARLY SIGNS AND SYMPTOMS OF EXACERBATION OR DETERIORATION. PT / OPERATIONS SUPPORT PROFESSIONALS TO EDUCATE ON ATRIAL FIBRILLATION SELF-MANAGEMENT. PT / OPERATIONS SUPPORT PROFESSIONALS TO EDUCATE ON PNEUMONIA / ASPIRATION PNEUMONIA SELF-MANAGEMENT. PT/OPERATIONS SUPPORT PROFESSIONALS TO IDENTIFY FALL RISK FACTORS; EDUCATE THE PATIENT/CAREGIVER ON WAYS TO REDUCE FALL RISK FACTORS AND ESTABLISH HOME EXERCISE PROGRAM TO MINIMIZE FALL RISK. MAY TEACH THE PATIENT FLOOR RECOVERY WHEN CLINICALLY APPROPRIATE [code = PT TO EVALUATE, OBSERVE / ASSESS, AND MONITOR, OPERATIONS SUPPORT PROFESSIONALS TO OBSERVE AND MONITOR, PROVIDE SKILLED THERAPEUTIC INTERVENTION, ACTIVITY, EDUCATION, AND TRAINING TO ADDRESS GEN. WEAKNESS, POOR OVERALL ACTIVITY TOLERANCE, AND FUNCTIONAL LIMITATIONS IMPACTING SAFETY AND INDEPENDENCE. BED MOBILITY (PT/OPERATIONS SUPPORT PROFESSIONALS) PT/OPERATIONS SUPPORT PROFESSIONALS TO PROVIDE GAIT TRAINING FOR IMPROVED MOBILITY AND /OR TO NORMALIZE GAIT PATTERN THERAPEUTIC EXERCISES AND ESTABLISHING A HOME EXERCISE PROGRAM (PT/OPERATIONS SUPPORT PROFESSIONALS) PT/OPERATIONS SUPPORT PROFESSIONALS TO PROVIDE STAIR TRAINING PT / OPERATIONS SUPPORT PROFESSIONALS TO MONITOR AND EDUCATE ON OXYGEN SATURATION DURING ADLS/IADLS, NOTIFY PHYSICIAN AND/OR THE RN CLINICAL TAPING FOREMAN FOR PHYSICIAN NOTIFICATION AND IF O2 SATS BELOW PHYSICIAN ORDERED PARAMETERS AFTER 10 MIN OF REST PT / OPERATIONS SUPPORT PROFESSIONALS TO OBSERVE FOR EARLY SIGNS AND SYMPTOMS OF DEPRESSION OR DEPRESSION GETTING WORSE AND TO EDUCATE ON HOW TO FIND HELP. PT / OPERATIONS SUPPORT PROFESSIONALS MAY EDUCATE ON PAIN MANAGEMENT CLINICALLY INDICATED, INCLUDING NON-PHARMACOLOGICAL PAIN REDUCTION TECHNIQUES PT / OPERATIONS SUPPORT PROFESSIONALS TO MONITOR FOR HYPO/HYPERGLYCEMIA AND CONDUCT ROUTINE FOOT INSPECTIONS. RECORD PATIENT REPORTED BLOOD SUGAR LEVELS AND NOTIFY PHYSICIAN AND/OR THE RN CLINICAL TAPING FOREMAN FOR PHYSICIAN NOTIFICATION IF BLOOD SUGAR LEVELS ARE OUTSIDE ORDERED PARAMETERS. TEACH PATIENT/CAREGIVER ON DAILY FOOT INSPECTIONS PT / OPERATIONS SUPPORT PROFESSIONALS TO INSTRUCT PATIENT/CAREGIVER ON RISK FOR HOSPITALIZATION/EMERGENCY ROOM VISITS, TEACH SIGNS AND SYMPTOMS THAT PUT PATIENT AT RISK, WHEN TO NOTIFY NURSE/PHYSICIAN OF COMPLICATIONS/DECLINE, AND WHEN TO CALL 911. PT/OPERATIONS SUPPORT PROFESSIONALS TO EDUCATE ON ARTHRITIS SELF-MANAGEMENT PT / OPERATIONS SUPPORT PROFESSIONALS TO EDUCATE ON HEART FAILURE SELF-MANAGEMENT PT / OPERATIONS SUPPORT PROFESSIONALS TO EDUCATE ON HYPERTENSION SELF-MANAGEMENT PT TO ASSESS / OPERATIONS SUPPORT PROFESSIONALS TO MONITOR CARDIO/RESPIRATORY SYSTEM; AND NOTIFY THE PHYSICIAN AND/OR THE RN CLINICAL TAPING FOREMAN FOR PHYSICIAN NOTIFICATION FOR EARLY SIGNS AND SYMPTOMS OF EXACERBATION OR DETERIORATION. PT / OPERATIONS SUPPORT PROFESSIONALS TO EDUCATE ON ATRIAL FIBRILLATION SELF-MANAGEMENT. PT / OPERATIONS SUPPORT PROFESSIONALS TO EDUCATE ON PNEUMONIA / ASPIRATION PNEUMONIA SELF-MANAGEMENT. PT/OPERATIONS SUPPORT PROFESSIONALS TO IDENTIFY FALL RISK FACTORS; EDUCATE THE PATIENT/CAREGIVER ON WAYS TO REDUCE FALL RISK FACTORS AND ESTABLISH HOME EXERCISE PROGRAM TO MINIMIZE FALL RISK. MAY TEACH THE PATIENT FLOOR RECOVERY WHEN CLINICALLY APPROPRIATE] Future Scheduled Test AGENCY MAY PERFORM A RESUMPTION OF CARE VISIT FOLLOWING ANY HOSPITAL ADMISSION. OT TO EVALUATE, OBSERVE / ASSESS, AND MONITOR, CLIENT SERVICES ANALYST TO OBSERVE AND MONITOR, PROVIDE SKILLED THERAPEUTIC INTERVENTION, ACTIVITY, EDUCATION, AND TRAINING TO ADDRESS SAFETY AND INDEPENDENCE OF ADLS AND FUNCTIONAL TRANSFERS IN HOME ENVIRONMENT. ACTIVITIES OF DAILY LIVING (OT/MARIANNE) THERAPEUTIC EXERCISE (OT/CLIENT SERVICES ANALYST) ENERGY CONSERVATION/ACTIVITY DEMAND (OT/CLIENT SERVICES ANALYST) OT/CLIENT SERVICES ANALYST TO MONITOR AND EDUCATE ON OXYGEN SATURATION DURING ADLS/IADLS, NOTIFY PHYSICIAN AND/OR THE RN CLINICAL TAPING FOREMAN FOR PHYSICIAN NOTIFICATION AND IF O2 SATS BELOW 90% AFTER 10 MIN OF REST. OT / CLIENT SERVICES ANALYST TO IDENTIFY FALL RISK FACTORS; EDUCATE THE PATIENT/CAREGIVER ON WAYS TO REDUCE FALL RISK FACTORS AND ESTABLISH HOME EXERCISE PROGRAM TO MINIMIZE FALL RISK. MAY TEACH THE PATIENT FLOOR RECOVERY WHEN CLINICALLY APPROPRIATE. OT/CLIENT SERVICES ANALYST TO EDUCATE ON HYPERTENSION SELF-MANAGEMENT OT/MARIANNE TO EDUCATE ON ATRIAL FIBRILLATION SELF-MANAGEMENT. [code = AGENCY MAY PERFORM A RESUMPTION OF CARE VISIT FOLLOWING ANY HOSPITAL ADMISSION. OT TO EVALUATE, OBSERVE / ASSESS, AND MONITOR, CLIENT SERVICES ANALYST TO OBSERVE AND MONITOR, PROVIDE SKILLED THERAPEUTIC INTERVENTION, ACTIVITY, EDUCATION, AND TRAINING TO ADDRESS SAFETY AND INDEPENDENCE OF ADLS AND FUNCTIONAL TRANSFERS IN HOME ENVIRONMENT. ACTIVITIES OF DAILY LIVING (OT/MARIANNE) THERAPEUTIC EXERCISE (OT/CLIENT SERVICES ANALYST) ENERGY CONSERVATION/ACTIVITY DEMAND (OT/MARIANNE) OT/CLIENT SERVICES ANALYST TO MONITOR AND EDUCATE ON OXYGEN SATURATION DURING ADLS/IADLS, NOTIFY PHYSICIAN AND/OR THE RN CLINICAL TAPING FOREMAN FOR PHYSICIAN NOTIFICATION AND IF O2 SATS BELOW 90% AFTER 10 MIN OF REST. OT / MARIANNE TO IDENTIFY FALL RISK FACTORS; EDUCATE THE PATIENT/CAREGIVER ON WAYS TO REDUCE FALL RISK FACTORS AND ESTABLISH HOME EXERCISE PROGRAM TO MINIMIZE FALL RISK. MAY TEACH THE PATIENT FLOOR RECOVERY WHEN CLINICALLY APPROPRIATE. OT/CLIENT SERVICES ANALYST TO EDUCATE ON HYPERTENSION SELF-MANAGEMENT OT/MARIANNE [...] NEW ADMISSION [facility] [id number] [phone]
--- OUTSIDE RECORDS SUMMARY | 2025-04-06 18:00 | XMS_ITS | Clinical Summary ---
Author Organization Unknown Care Team Providers Care Grape Grower Name Role Phone DIGNA ARIEL, ESTRELLA Unavailable Unava dinora STOKES RN, FRANKIE Unavailable Unavailabl e KARI PT, DIDI Unavailable Unavailable NAT ENGINEERING INSTRUCTOR, GAUDENCIO Unavailable Unavailabl e RADHA OT, ROLANDO Unavailable Unavailable JOANNE STEVEN, HATTIE Unavailable Unavailable Payers Payer Name Policy Type Policy Number Effective Date Expira tion Date MEDICARE[facility] [id number] Problems Condition Name Condition Details Condition Category Status Onset Date Resolution Date Last Treatment Date Treating Clinician Comments 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 02-07 [...] OF PNEUMONIA (RECURRENT) Active 02-07 00:00: 00 BOND BROKER (CURRENT) USE OF SYSTEMIC STEROIDS Active 02-07 [...] 80 mg tablet 02-07 00:00: 00 Yes [id number] CHOLESTEROL 1 tablet DAILY 1 tablet DAILY (route: oral) Med Classific ation: Cardiovas cular Therapy Agents digoxin 125 mcg (0.125 mg) tablet 02-07 00:00: 00 02-21 23:59 :00 No [id number] HEART RHYTHM 1 tablet DAILY 1 tablet DAILY (route: oral) Med Classific ation: Cardiovas cular Therapy Agents escitalopra m 10 mg tablet 02-07 00:00: 00 Yes [id number] MOOD 1 tablet DAILY 1 tablet DAILY (route: oral) Med Classific ation: Central Nervous System Agents ezetimibe 10 mg tablet 02-07 00:00: 00 Yes [id number] CHOLESTEROL 1 tablet DAILY 1 tablet DAILY (route: oral) Med Classific ation: Cardiovas cular Therapy Agents metoprolol succinate ER 25 mg tablet,exte nded release 24 hr 02-07 00:00: 00 02-21 23:59 :00 No [id number] BLOOD PRESSURE 0.5 tablet DAILY 0.5 tablet DAILY (route: oral) Med Classific ation: Cardiovas cular Therapy Agents pantoprazol e 40 mg tablet,joão yed release 02-07 00:00: 00 02-21 23:59 :00 No [id number] STOMACH ACID 1 tablet DAILY 1 tablet DAILY (route: oral) Med Classific ation: Gastroint estinal Therapy Agents prednisone 5 mg tablet 02-07 00:00: 00 Yes [id number] ADRENAL INSUFFICIEN CY 1 tablet DAILY 1 tablet DAILY (route: oral) Med Classific ation: Endocrine spironolact one 25 mg tablet 02-07 00:00: 00 Yes [id number] FLUID RETENTION 0.5 tablet DAILY 0.5 tablet DAILY (route: oral) Med Classific ation: Cardiovas cular Therapy Agents tamsulosin 0.4 mg capsule 02-07 00:00: 00 02-21 23:59 :00 No [id number] URINARY HEALTH 1 capsule DAILY 1 capsule DAILY (route: oral) Med Classific ation: Genitouri nary Therapy acetaminoph en 325 mg tablet 2024-05 00:00: 00 Yes [id number] PAIN 2 tablet 2 TIMES DAILY 2 tablet 2 TIMES DAILY (route: oral) Med Classific ation: Analgesic , Anti-infl ammatory or Antipyret ic aspirin 81 mg tablet 2024-05 00:00: 00 Yes [id number] ANTICOAGULA NT 1 tablet DAILY 1 tablet DAILY (route: oral) Med Classific ation: Hematolog ical Agents ipratropium 0.5 mg-albutero l 3 mg (2.5 mg base)/3 mL nebulizatio n soln 2024-05 00:00: 00 Yes [id number] COPD 3 mL EVERY 6 HOURS 3 mL EVERY 6 HOURS (route: inhalation ) Med Classific ation: Respirato ry Therapy Agents Lanoxin 62.5 mcg (0.0625 mg) tablet 2024-05 00:00: 00 Yes [id number] CHF 1 tablet DAILY 1 tablet DAILY (route: oral) Med Classific ation: Cardiovas cular Therapy Agents Lasix 20 mg tablet 2024-05 00:00: 00 Yes [id number] CHF 1 tablet DAILY 1 tablet DAILY (route: oral) Med Classific ation: Cardiovas cular Therapy Agents Toprol XL 25 mg tablet,exte nded release 2024-05 00:00: 00 Yes [id number] BP 25 mg DAILY 25 mg DAILY [...] SYSTEM MANAGEMENT; RN TO ASSESS AND TEACH, PAINTER SET/FISH SMOKER TO OBSERVE AND TEACH RELATED TO ALTERED RESPIRATORY STATUS TO MINIMIZE COMPLICATIONS AND REDUCE HOSPITALIZATION. [code = SN 1WK9 PT 1WK1 OT EFFECTIVE 02/10/2025K1 RESPIRATORY SYSTEM MANAGEMENT; RN TO ASSESS AND TEACH, PAINTER SET/FISH SMOKER TO OBSERVE AND TEACH RELATED TO ALTERED RESPIRATORY STATUS TO MINIMIZE COMPLICATIONS AND REDUCE HOSPITALIZATION.] Future Scheduled Test TRACHEOSTO MY CARE MANAGEMENT; RN/PAINTER SET/FISH SMOKER TO INSTRUCT PATIENT/CAREGIVER ON CARE AND MANAGEMENT OF TRACHEOSTOMY. RN/ PAINTER SET/FISH SMOKER TO PROVIDE SKILLED TEACHING ON TRACH COLLAR SUCTIONING PRN WITH 14 FR SUCTION CATHETER PER PATIENT TRACH CARE WITH INNER CANNULA: REMOVE INNER CANNULA, CLEANSE WITH NORMAL SALINE AND OR STERILE WATER AND REINSERT NON-DISPOSABLE CANNULA SIZE OF INNER CANNULA 5 BROOKS [code = TRACHEOSTOMY CARE MANAGEMENT; RN/PAINTER SET/FISH SMOKER TO INSTRUCT PATIENT/CAREGIVER ON CARE AND MANAGEMENT OF TRACHEOSTOMY. RN/ PAINTER SET/FISH SMOKER TO PROVIDE SKILLED TEACHING ON TRACH COLLAR SUCTIONING PRN WITH 14 FR SUCTION CATHETER PER PATIENT TRACH CARE WITH INNER CANNULA: REMOVE INNER CANNULA, CLEANSE WITH NORMAL SALINE AND OR STERILE WATER AND REINSERT NON-DISPOSABLE CANNULA SIZE OF INNER CANNULA 5 BROOKS] Future Scheduled Test FALL REDUC TION MANAGEMENT; RN TO ASSESS AND OBSERVE, PAINTER SET/FISH SMOKER TO OBSERVE FALL RISK FACTORS AND EDUCATE PATIENT/CAREGIVER ON STRATEGIES TO MINIMIZE THE RISK OF FALLING. [code = FALL REDUCTION MANAGEMENT; RN TO ASSESS AND OBSERVE, PAINTER SET/FISH SMOKER TO OBSERVE FALL RISK FACTORS AND EDUCATE PATIENT/CAREGIVER ON STRATEGIES TO MINIMIZE THE RISK OF FALLING.] Future Scheduled Test ANEMIA MAN AGEMENT; RN TO ASSESS AND TEACH, FISH SMOKER/PAINTER SET TO OBSERVE AND TEACH AND PROVIDE EDUCATION ON ANEMIA. [code = ANEMIA MANAGEMENT; RN TO ASSESS AND TEACH, FISH SMOKER/PAINTER SET TO OBSERVE AND TEACH AND PROVIDE EDUCATION ON ANEMIA.] Future Scheduled Test RN TO OBSE RVE, ASSESS, EVALUATE, AND DEVELOP AN INDIVIDUALIZED PLAN OF CARE. AGENCY MAY ACCEPT ORDERS FROM CONSULTING PHYSICIANS RN TO OBSERVE AND ASSESS, PAINTER SET/FISH SMOKER TO OBSERVE FOR RISK FOR FALLS AND INSTRUCT IN FALL PREVENTION, HOME SAFETY, MEDICATION MANAGEMENT, INFECTION PREVENTION, AND NUTRITION MANAGEMENT. RN/PAINTER SET/FISH SMOKER NURSE MAY PERFORM O2 SATURATION LEVEL ON ADMISSION AND PRN FOR RN TO ASSESS/PAINTER SET TO OBSERVE PATIENT, WITH NOTIFICATION TO THE PHYSICIAN IF SATURATION IS 90% IN THE ABSENCE OF MORE SPECIFIC PARAMETERS FROM THE PHYSICIAN. AGENCY MAY PERFORM A RESUMPTION OF CARE VISIT FOLLOWING ANY HOSPITAL ADMISSION. RN/PAINTER SET/FISH SMOKER TO MONITOR CO-MORBID CONDITIONS LISTED ON THE PLAN OF CARE AND ANY NEW CONDITIONS THAT PRESENT THEMSELVES DURING THIS EPISODE TO IDENTIFY CHANGES AND INTERVENE TO MINIMIZE COMPLICATIONS. [code = RN TO OBSERVE, ASSESS, EVALUATE, AND DEVELOP AN INDIVIDUALIZED PLAN OF CARE. AGENCY MAY ACCEPT ORDERS FROM CONSULTING PHYSICIANS RN TO OBSERVE AND ASSESS, PAINTER SET/FISH SMOKER TO OBSERVE FOR RISK FOR FALLS AND INSTRUCT IN FALL PREVENTION, HOME SAFETY, MEDICATION MANAGEMENT, INFECTION PREVENTION, AND NUTRITION MANAGEMENT. RN/PAINTER SET/FISH SMOKER NURSE MAY PERFORM O2 SATURATION LEVEL ON ADMISSION AND PRN FOR RN TO ASSESS/PAINTER SET TO OBSERVE PATIENT, WITH NOTIFICATION TO THE PHYSICIAN IF SATURATION IS 90% IN THE ABSENCE OF MORE SPECIFIC PARAMETERS FROM THE PHYSICIAN. AGENCY MAY PERFORM A RESUMPTION OF CARE VISIT FOLLOWING ANY HOSPITAL ADMISSION. RN/PAINTER SET/FISH SMOKER TO MONITOR CO-MORBID CONDITIONS LISTED ON THE PLAN OF CARE AND ANY NEW CONDITIONS THAT PRESENT THEMSELVES DURING THIS EPISODE TO IDENTIFY CHANGES AND INTERVENE TO MINIMIZE COMPLICATIONS.] Future Scheduled Test PAIN MANAG EMENT; RN TO ASSESS AND TEACH, FISH SMOKER/PAINTER SET TO OBSERVE AND TEACH AND PROVIDE EDUCATION ON PAIN MANAGEMENT TECHNIQUES. [code = PAIN MANAGEMENT; RN TO ASSESS AND TEACH, FISH SMOKER/PAINTER SET TO OBSERVE AND TEACH AND PROVIDE EDUCATION ON PAIN MANAGEMENT TECHNIQUES.] Future Scheduled Test RISK FOR H OSPITALIZATION; RN TO ASSESS/TEACH, FISH SMOKER/PAINTER SET TO OBSERVE/TEACH PATIENT/CAREGIVER ON RISK FOR HOSPITALIZATION/EMERGENCY ROOM VISITS, TEACH SIGNS AND SYMPTOMS THAT PUT PATIENT AT RISK, WHEN TO NOTIFY NURSE/PHYSICIAN OF COMPLICATIONS/DECLINE, AND WHEN TO CALL 911. [code = RISK FOR HOSPITALIZATION; RN TO ASSESS/TEACH, FISH SMOKER/PAINTER SET TO OBSERVE/TEACH PATIENT/CAREGIVER ON RISK FOR HOSPITALIZATION/EMERGENCY ROOM VISITS, TEACH SIGNS AND SYMPTOMS THAT PUT PATIENT AT RISK, WHEN TO NOTIFY NURSE/PHYSICIAN OF COMPLICATIONS/DECLINE, AND WHEN TO CALL 911.] Future Scheduled Test CARDIOVASC ULAR SYSTEM; RN TO ASSESS/TEACH, PAINTER SET/FISH SMOKER TO OBSERVE/TEACH RELATED TO ALTERED CARDIOVASCULAR STATUS TO MINIMIZE COMPLICATIONS AND REDUCE HOSPITALIZATION. [code = CARDIOVASCULAR SYSTEM; RN TO ASSESS/TEACH, PAINTER SET/FISH SMOKER TO OBSERVE/TEACH RELATED TO ALTERED CARDIOVASCULAR STATUS TO MINIMIZE COMPLICATIONS AND REDUCE HOSPITALIZATION.] Future Scheduled Test HYPERTENSI ON MANAGEMENT; RN TO ASSESS AND TEACH, PAINTER SET/FISH SMOKER TO OBSERVE AND TEACH WARNING SIGNS AND SYMPTOMS TO AVOID HOSPITALIZATION. [code = HYPERTENSION MANAGEMENT; RN TO ASSESS AND TEACH, PAINTER SET/FISH SMOKER TO OBSERVE AND TEACH WARNING SIGNS AND SYMPTOMS TO AVOID HOSPITALIZATION.] Future Scheduled Test HEART FAIL URE MONITORING RN/FISH SMOKER/PAINTER SET TO MONITOR PATIENT FOR SIGNS AND SYMPTOMS OF HEART FAILURE EXACERBATION, MONITOR FOR ADHERENCE WITH MEDICATION AND HEART FAILURE MANAGEMENT REGIMEN. [code = HEART FAILURE MONITORING RN/FISH SMOKER/PAINTER SET TO MONITOR PATIENT FOR SIGNS AND SYMPTOMS OF HEART FAILURE EXACERBATION, MONITOR FOR ADHERENCE WITH MEDICATION AND HEART FAILURE MANAGEMENT REGIMEN.] Future Scheduled Test DIABETES M ONITORING RN/FISH SMOKER/PAINTER SET TO MONITOR BLOOD SUGAR LOG FOR BLOOD SUGAR READINGS THAT ARE BEING CHECKED BY PATIENT, CAREGIVER NEEDED FOR SIGNS AND SYMPTOMS OF HYPER/HYPOGLYCEMIA. PATIENT THERAPEUTIC BLOOD SUGAR PARAMETERS ARE 70 - 300. REPORT BLOOD SUGARS OUT OF RANGE TO PHYSICIAN. NURSE MAY PERFORM FINGER STICK BLOOD GLUCOSE NEEDED FOR SIGNS AND SYMPTOMS OF HYPO AND HYPERGLYCEMIA. RN/FISH SMOKER/PAINTER SET TO MONITOR ADHERENCE OF PATIENT/CAREGIVER PERFORMING DIABETIC FOOT CARE AND MAY PERFORM DIABETIC FOOT CARE PRN. RN/FISH SMOKER/PAINTER SET TO MONITOR FOR ADHERENCE TO DIABETIC SELF-CARE AND MANAGEMENT INCLUDING MEDICATIONS. [code = DIABETES MONITORING RN/FISH SMOKER/PAINTER SET TO MONITOR BLOOD SUGAR LOG FOR BLOOD SUGAR READINGS THAT ARE BEING CHECKED BY PATIENT, CAREGIVER NEEDED FOR SIGNS AND SYMPTOMS OF HYPER/HYPOGLYCEMIA. PATIENT THERAPEUTIC BLOOD SUGAR PARAMETERS ARE 70 - 300. REPORT BLOOD SUGARS OUT OF RANGE TO PHYSICIAN. NURSE MAY PERFORM FINGER STICK BLOOD GLUCOSE NEEDED FOR SIGNS AND SYMPTOMS OF HYPO AND HYPERGLYCEMIA. RN/FISH SMOKER/PAINTER SET TO MONITOR ADHERENCE OF PATIENT/CAREGIVER PERFORMING DIABETIC FOOT CARE AND MAY PERFORM DIABETIC FOOT CARE PRN. RN/FISH SMOKER/PAINTER SET TO MONITOR FOR ADHERENCE TO DIABETIC SELF-CARE AND MANAGEMENT INCLUDING MEDICATIONS.] Future Scheduled Test HYPOTENSIO N MANAGEMENT; RN TO ASSESS AND TEACH/ PAINTER SET /FISH SMOKER TO OBSERVE AND TEACH WARNING SIGNS AND SYMPTOMS TO AVOID HOSPITALIZATION. [code = HYPOTENSION MANAGEMENT; RN TO ASSESS AND TEACH/ PAINTER SET /FISH SMOKER TO OBSERVE AND TEACH WARNING SIGNS AND SYMPTOMS TO AVOID HOSPITALIZATION.] Future Scheduled Test ARRHYTHMIA MANAGEMENT; RN TO ASSESS AND TEACH, PAINTER SET/FISH SMOKER TO OBSERVE AND TEACH WARNING SIGNS AND SYMPTOMS TO AVOID HOSPITALIZATION. [code = ARRHYTHMIA MANAGEMENT; RN TO ASSESS AND TEACH, PAINTER SET/FISH SMOKER TO OBSERVE AND TEACH WARNING SIGNS AND SYMPTOMS TO AVOID HOSPITALIZATION.] Future Scheduled Test MEDICATION MANAGEMENT; RN/PAINTER SET/FISH SMOKER TO REVIEW MEDICATIONS FOR INTERACTIONS, EFFECTIVENESS OF DRUG THERAPY, AND SIGNS/SYMPTOMS OF ADVERSE REACTIONS. MAY INSTRUCT AND REINFORCE MEDICATION TEACHING RELATED TO THE USE OF MEDICATIONS, DOSAGE, FREQUENCY, PURPOSE, SIDE EFFECTS, AND TO REPORT COMPLICATIONS. [code = MEDICATION MANAGEMENT; RN/PAINTER SET/FISH SMOKER TO REVIEW MEDICATIONS FOR INTERACTIONS, EFFECTIVENESS OF [...] EVAL UATE, OBSERVE / ASSESS, AND MONITOR, ENGINEERING INSTRUCTOR TO OBSERVE AND MONITOR, PROVIDE SKILLED THERAPEUTIC INTERVENTION, ACTIVITY, EDUCATION, AND TRAINING TO ADDRESS GEN. WEAKNESS, POOR OVERALL ACTIVITY TOLERANCE, AND FUNCTIONAL LIMITATIONS IMPACTING SAFETY AND INDEPENDENCE. BED MOBILITY (PT/ENGINEERING INSTRUCTOR) PT/ENGINEERING INSTRUCTOR TO PROVIDE GAIT TRAINING FOR IMPROVED MOBILITY AND /OR TO NORMALIZE GAIT PATTERN THERAPEUTIC EXERCISES AND ESTABLISHING A HOME EXERCISE PROGRAM (PT/ENGINEERING INSTRUCTOR) PT/ENGINEERING INSTRUCTOR TO PROVIDE STAIR TRAINING PT / ENGINEERING INSTRUCTOR TO MONITOR AND EDUCATE ON OXYGEN SATURATION DURING ADLS/IADLS, NOTIFY PHYSICIAN AND/OR THE RN CLINICAL WIRE STRIPPER FOR PHYSICIAN NOTIFICATION AND IF O2 SATS BELOW PHYSICIAN ORDERED PARAMETERS AFTER 10 MIN OF REST PT / ENGINEERING INSTRUCTOR TO OBSERVE FOR EARLY SIGNS AND SYMPTOMS OF DEPRESSION OR DEPRESSION GETTING WORSE AND TO EDUCATE ON HOW TO FIND HELP. PT / ENGINEERING INSTRUCTOR MAY EDUCATE ON PAIN MANAGEMENT CLINICALLY INDICATED, INCLUDING NON-PHARMACOLOGICAL PAIN REDUCTION TECHNIQUES PT / ENGINEERING INSTRUCTOR TO MONITOR FOR HYPO/HYPERGLYCEMIA AND CONDUCT ROUTINE FOOT INSPECTIONS. RECORD PATIENT REPORTED BLOOD SUGAR LEVELS AND NOTIFY PHYSICIAN AND/OR THE RN CLINICAL WIRE STRIPPER FOR PHYSICIAN NOTIFICATION IF BLOOD SUGAR LEVELS ARE OUTSIDE ORDERED PARAMETERS. TEACH PATIENT/CAREGIVER ON DAILY FOOT INSPECTIONS PT / ENGINEERING INSTRUCTOR TO INSTRUCT PATIENT/CAREGIVER ON RISK FOR HOSPITALIZATION/EMERGENCY ROOM VISITS, TEACH SIGNS AND SYMPTOMS THAT PUT PATIENT AT RISK, WHEN TO NOTIFY NURSE/PHYSICIAN OF COMPLICATIONS/DECLINE, AND WHEN TO CALL 911. PT/ENGINEERING INSTRUCTOR TO EDUCATE ON ARTHRITIS SELF-MANAGEMENT PT / ENGINEERING INSTRUCTOR TO EDUCATE ON HEART FAILURE SELF-MANAGEMENT PT / ENGINEERING INSTRUCTOR TO EDUCATE ON HYPERTENSION SELF-MANAGEMENT PT TO ASSESS / ENGINEERING INSTRUCTOR TO MONITOR CARDIO/RESPIRATORY SYSTEM; AND NOTIFY THE PHYSICIAN AND/OR THE RN CLINICAL WIRE STRIPPER FOR PHYSICIAN NOTIFICATION FOR EARLY SIGNS AND SYMPTOMS OF EXACERBATION OR DETERIORATION. PT / ENGINEERING INSTRUCTOR TO EDUCATE ON ATRIAL FIBRILLATION SELF-MANAGEMENT. PT / ENGINEERING INSTRUCTOR TO EDUCATE ON PNEUMONIA / ASPIRATION PNEUMONIA SELF-MANAGEMENT. PT/ENGINEERING INSTRUCTOR TO IDENTIFY FALL RISK FACTORS; EDUCATE THE PATIENT/CAREGIVER ON WAYS TO REDUCE FALL RISK FACTORS AND ESTABLISH HOME EXERCISE PROGRAM TO MINIMIZE FALL RISK. MAY TEACH THE PATIENT FLOOR RECOVERY WHEN CLINICALLY APPROPRIATE [code = PT TO EVALUATE, OBSERVE / ASSESS, AND MONITOR, ENGINEERING INSTRUCTOR TO OBSERVE AND MONITOR, PROVIDE SKILLED THERAPEUTIC INTERVENTION, ACTIVITY, EDUCATION, AND TRAINING TO ADDRESS GEN. WEAKNESS, POOR OVERALL ACTIVITY TOLERANCE, AND FUNCTIONAL LIMITATIONS IMPACTING SAFETY AND INDEPENDENCE. BED MOBILITY (PT/ENGINEERING INSTRUCTOR) PT/ENGINEERING INSTRUCTOR TO PROVIDE GAIT TRAINING FOR IMPROVED MOBILITY AND /OR TO NORMALIZE GAIT PATTERN THERAPEUTIC EXERCISES AND ESTABLISHING A HOME EXERCISE PROGRAM (PT/ENGINEERING INSTRUCTOR) PT/ENGINEERING INSTRUCTOR TO PROVIDE STAIR TRAINING PT / ENGINEERING INSTRUCTOR TO MONITOR AND EDUCATE ON OXYGEN SATURATION DURING ADLS/IADLS, NOTIFY PHYSICIAN AND/OR THE RN CLINICAL WIRE STRIPPER FOR PHYSICIAN NOTIFICATION AND IF O2 SATS BELOW PHYSICIAN ORDERED PARAMETERS AFTER 10 MIN OF REST PT / ENGINEERING INSTRUCTOR TO OBSERVE FOR EARLY SIGNS AND SYMPTOMS OF DEPRESSION OR DEPRESSION GETTING WORSE AND TO EDUCATE ON HOW TO FIND HELP. PT / ENGINEERING INSTRUCTOR MAY EDUCATE ON PAIN MANAGEMENT CLINICALLY INDICATED, INCLUDING NON-PHARMACOLOGICAL PAIN REDUCTION TECHNIQUES PT / ENGINEERING INSTRUCTOR TO MONITOR FOR HYPO/HYPERGLYCEMIA AND CONDUCT ROUTINE FOOT INSPECTIONS. RECORD PATIENT REPORTED BLOOD SUGAR LEVELS AND NOTIFY PHYSICIAN AND/OR THE RN CLINICAL WIRE STRIPPER FOR PHYSICIAN NOTIFICATION IF BLOOD SUGAR LEVELS ARE OUTSIDE ORDERED PARAMETERS. TEACH PATIENT/CAREGIVER ON DAILY FOOT INSPECTIONS PT / ENGINEERING INSTRUCTOR TO INSTRUCT PATIENT/CAREGIVER ON RISK FOR HOSPITALIZATION/EMERGENCY ROOM VISITS, TEACH SIGNS AND SYMPTOMS THAT PUT PATIENT AT RISK, WHEN TO NOTIFY NURSE/PHYSICIAN OF COMPLICATIONS/DECLINE, AND WHEN TO CALL 911. PT/ENGINEERING INSTRUCTOR TO EDUCATE ON ARTHRITIS SELF-MANAGEMENT PT / ENGINEERING INSTRUCTOR TO EDUCATE ON HEART FAILURE SELF-MANAGEMENT PT / ENGINEERING INSTRUCTOR TO EDUCATE ON HYPERTENSION SELF-MANAGEMENT PT TO ASSESS / ENGINEERING INSTRUCTOR TO MONITOR CARDIO/RESPIRATORY SYSTEM; AND NOTIFY THE PHYSICIAN AND/OR THE RN CLINICAL WIRE STRIPPER FOR PHYSICIAN NOTIFICATION FOR EARLY SIGNS AND SYMPTOMS OF EXACERBATION OR DETERIORATION. PT / ENGINEERING INSTRUCTOR TO EDUCATE ON ATRIAL FIBRILLATION SELF-MANAGEMENT. PT / ENGINEERING INSTRUCTOR TO EDUCATE ON PNEUMONIA / ASPIRATION PNEUMONIA SELF-MANAGEMENT. PT/ENGINEERING INSTRUCTOR TO IDENTIFY FALL RISK FACTORS; EDUCATE THE PATIENT/CAREGIVER ON WAYS TO REDUCE FALL RISK FACTORS AND ESTABLISH HOME EXERCISE PROGRAM TO MINIMIZE FALL RISK. MAY TEACH THE PATIENT FLOOR RECOVERY WHEN CLINICALLY APPROPRIATE] Future Scheduled Test AGENCY MAY PERFORM A RESUMPTION OF CARE VISIT FOLLOWING ANY HOSPITAL ADMISSION. OT TO EVALUATE, OBSERVE / ASSESS, AND MONITOR, BOWLING BALL PATCHER TO OBSERVE AND MONITOR, PROVIDE SKILLED THERAPEUTIC INTERVENTION, ACTIVITY, EDUCATION, AND TRAINING TO ADDRESS SAFETY AND INDEPENDENCE OF ADLS AND FUNCTIONAL TRANSFERS IN HOME ENVIRONMENT. ACTIVITIES OF DAILY LIVING (OT/MARIANNE) THERAPEUTIC EXERCISE (OT/BOWLING BALL PATCHER) ENERGY CONSERVATION/ACTIVITY DEMAND (OT/BOWLING BALL PATCHER) OT/BOWLING BALL PATCHER TO MONITOR AND EDUCATE ON OXYGEN SATURATION DURING ADLS/IADLS, NOTIFY PHYSICIAN AND/OR THE RN CLINICAL WIRE STRIPPER FOR PHYSICIAN NOTIFICATION AND IF O2 SATS BELOW 90% AFTER 10 MIN OF REST. OT / BOWLING BALL PATCHER TO IDENTIFY FALL RISK FACTORS; EDUCATE THE PATIENT/CAREGIVER ON WAYS TO REDUCE FALL RISK FACTORS AND ESTABLISH HOME EXERCISE PROGRAM TO MINIMIZE FALL RISK. MAY TEACH THE PATIENT FLOOR RECOVERY WHEN CLINICALLY APPROPRIATE. OT/BOWLING BALL PATCHER TO EDUCATE ON HYPERTENSION SELF-MANAGEMENT OT/MARIANNE TO EDUCATE ON ATRIAL FIBRILLATION SELF-MANAGEMENT. [code = AGENCY MAY PERFORM A RESUMPTION OF CARE VISIT FOLLOWING ANY HOSPITAL ADMISSION. OT TO EVALUATE, OBSERVE / ASSESS, AND MONITOR, BOWLING BALL PATCHER TO OBSERVE AND MONITOR, PROVIDE SKILLED THERAPEUTIC INTERVENTION, ACTIVITY, EDUCATION, AND TRAINING TO ADDRESS SAFETY AND INDEPENDENCE OF ADLS AND FUNCTIONAL TRANSFERS IN HOME ENVIRONMENT. ACTIVITIES OF DAILY LIVING (OT/MARIANNE) THERAPEUTIC EXERCISE (OT/BOWLING BALL PATCHER) ENERGY CONSERVATION/ACTIVITY DEMAND (OT/MARIANNE) OT/BOWLING BALL PATCHER TO MONITOR AND EDUCATE ON OXYGEN SATURATION DURING ADLS/IADLS, NOTIFY PHYSICIAN AND/OR THE RN CLINICAL WIRE STRIPPER FOR PHYSICIAN NOTIFICATION AND IF O2 SATS BELOW 90% AFTER 10 MIN OF REST. OT / MARIANNE TO IDENTIFY FALL RISK FACTORS; EDUCATE THE PATIENT/CAREGIVER ON WAYS TO REDUCE FALL RISK FACTORS AND ESTABLISH HOME EXERCISE PROGRAM TO MINIMIZE FALL RISK. MAY TEACH THE PATIENT FLOOR RECOVERY WHEN CLINICALLY APPROPRIATE. OT/BOWLING BALL PATCHER TO EDUCATE ON HYPERTENSION SELF-MANAGEMENT OT/MARIANNE TO [...] Outpatient NEW ADMISSION FRANK[facility] STOK[facility] [id number]
--- OUTSIDE RECORDS SUMMARY | 2025-04-06 18:00 | XMS_ITS | Clinical Summary ---
Author Organization Unknown Care Team Providers Care Celery Packer Name Role Phone DIGNA ARIEL, ESTRELLA Unavailable Unava dinora STOKES RN, FRANKIE Unavailable Unavailabl e KARI PT, DIDI Unavailable Unavailable NAT PHYSICAL OPTICS TEACHER, GAUDENCIO Unavailable Unavailabl e RADHA OT, ROLANDO Unavailable Unavailable JOANNE STEVEN, HATTIE Unavailable Unavailable Payers Payer Name Policy Type Policy Number Effective Date Expira tion Date MEDICARE.[facility] [id number] Problems Condition Name Condition Details Condition Category Status Onset Date Resolution Date Last Treatment Date Treating Clinician Comments 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 02-07 [...] OF PNEUMONIA (RECURRENT) Active 02-07 00:00: 00 DOCTOR PODIATRIC MEDICINE (CURRENT) USE OF SYSTEMIC STEROIDS Active 02-07 [...] 80 mg tablet 02-07 00:00: 00 Yes [id number] CHOLESTEROL 1 tablet DAILY 1 tablet DAILY (route: oral) Med Classific ation: Cardiovas cular Therapy Agents digoxin 125 mcg (0.125 mg) tablet 02-07 00:00: 00 02-21 23:59 :00 No [id number] HEART RHYTHM 1 tablet DAILY 1 tablet DAILY (route: oral) Med Classific ation: Cardiovas cular Therapy Agents escitalopra m 10 mg tablet 02-07 00:00: 00 Yes [id number] MOOD 1 tablet DAILY 1 tablet DAILY (route: oral) Med Classific ation: Central Nervous System Agents ezetimibe 10 mg tablet 02-07 00:00: 00 Yes [id number] CHOLESTEROL 1 tablet DAILY 1 tablet DAILY (route: oral) Med Classific ation: Cardiovas cular Therapy Agents metoprolol succinate ER 25 mg tablet,exte nded release 24 hr 02-07 00:00: 00 02-21 23:59 :00 No [id number] BLOOD PRESSURE 0.5 tablet DAILY 0.5 tablet DAILY (route: oral) Med Classific ation: Cardiovas cular Therapy Agents pantoprazol e 40 mg tablet,joão yed release 02-07 00:00: 00 02-21 23:59 :00 No [id number] STOMACH ACID 1 tablet DAILY 1 tablet DAILY (route: oral) Med Classific ation: Gastroint estinal Therapy Agents prednisone 5 mg tablet 02-07 00:00: 00 Yes [id number] ADRENAL INSUFFICIEN CY 1 tablet DAILY 1 tablet DAILY (route: oral) Med Classific ation: Endocrine spironolact one 25 mg tablet 02-07 00:00: 00 Yes [id number] FLUID RETENTION 0.5 tablet DAILY 0.5 tablet DAILY (route: oral) Med Classific ation: Cardiovas cular Therapy Agents tamsulosin 0.4 mg capsule 02-07 00:00: 00 02-21 23:59 :00 No [id number] URINARY HEALTH 1 capsule DAILY 1 capsule DAILY (route: oral) Med Classific ation: Genitouri nary Therapy acetaminoph en 325 mg tablet 2024-05 00:00: 00 Yes [id number] PAIN 2 tablet 2 TIMES DAILY 2 tablet 2 TIMES DAILY (route: oral) Med Classific ation: Analgesic , Anti-infl ammatory or Antipyret ic aspirin 81 mg tablet 2024-05 00:00: 00 Yes [id number] ANTICOAGULA NT 1 tablet DAILY 1 tablet DAILY (route: oral) Med Classific ation: Hematolog ical Agents ipratropium 0.5 mg-albutero l 3 mg (2.5 mg base)/3 mL nebulizatio n soln 2024-05 00:00: 00 Yes [id number] COPD 3 mL EVERY 6 HOURS 3 mL EVERY 6 HOURS (route: inhalation ) Med Classific ation: Respirato ry Therapy Agents Lanoxin 62.5 mcg (0.0625 mg) tablet 2024-05 00:00: 00 Yes [id number] CHF 1 tablet DAILY 1 tablet DAILY (route: oral) Med Classific ation: Cardiovas cular Therapy Agents Lasix 20 mg tablet 2024-05 00:00: 00 Yes [id number] CHF 1 tablet DAILY 1 tablet DAILY (route: oral) Med Classific ation: Cardiovas cular Therapy Agents Toprol XL 25 mg tablet,exte nded release 2024-05 00:00: 00 Yes [id number] BP 25 mg DAILY 25 mg DAILY [...] SYSTEM MANAGEMENT; RN TO ASSESS AND TEACH, DISH ROOM WORKER/ENDING MACHINE OPERATOR TO OBSERVE AND TEACH RELATED TO ALTERED RESPIRATORY STATUS TO MINIMIZE COMPLICATIONS AND REDUCE HOSPITALIZATION. [code = SN 1WK9 PT 1WK1 OT EFFECTIVE 02/10/2025K1 RESPIRATORY SYSTEM MANAGEMENT; RN TO ASSESS AND TEACH, DISH ROOM WORKER/ENDING MACHINE OPERATOR TO OBSERVE AND TEACH RELATED TO ALTERED RESPIRATORY STATUS TO MINIMIZE COMPLICATIONS AND REDUCE HOSPITALIZATION.] Future Scheduled Test TRACHEOSTO MY CARE MANAGEMENT; RN/DISH ROOM WORKER/ENDING MACHINE OPERATOR TO INSTRUCT PATIENT/CAREGIVER ON CARE AND MANAGEMENT OF TRACHEOSTOMY. RN/ DISH ROOM WORKER/ENDING MACHINE OPERATOR TO PROVIDE SKILLED TEACHING ON TRACH COLLAR SUCTIONING PRN WITH 14 FR SUCTION CATHETER PER PATIENT TRACH CARE WITH INNER CANNULA: REMOVE INNER CANNULA, CLEANSE WITH NORMAL SALINE AND OR STERILE WATER AND REINSERT NON-DISPOSABLE CANNULA SIZE OF INNER CANNULA 5 BROOKS [code = TRACHEOSTOMY CARE MANAGEMENT; RN/DISH ROOM WORKER/ENDING MACHINE OPERATOR TO INSTRUCT PATIENT/CAREGIVER ON CARE AND MANAGEMENT OF TRACHEOSTOMY. RN/ DISH ROOM WORKER/ENDING MACHINE OPERATOR TO PROVIDE SKILLED TEACHING ON TRACH COLLAR SUCTIONING PRN WITH 14 FR SUCTION CATHETER PER PATIENT TRACH CARE WITH INNER CANNULA: REMOVE INNER CANNULA, CLEANSE WITH NORMAL SALINE AND OR STERILE WATER AND REINSERT NON-DISPOSABLE CANNULA SIZE OF INNER CANNULA 5 BROOKS] Future Scheduled Test FALL REDUC TION MANAGEMENT; RN TO ASSESS AND OBSERVE, DISH ROOM WORKER/ENDING MACHINE OPERATOR TO OBSERVE FALL RISK FACTORS AND EDUCATE PATIENT/CAREGIVER ON STRATEGIES TO MINIMIZE THE RISK OF FALLING. [code = FALL REDUCTION MANAGEMENT; RN TO ASSESS AND OBSERVE, DISH ROOM WORKER/ENDING MACHINE OPERATOR TO OBSERVE FALL RISK FACTORS AND EDUCATE PATIENT/CAREGIVER ON STRATEGIES TO MINIMIZE THE RISK OF FALLING.] Future Scheduled Test ANEMIA MAN AGEMENT; RN TO ASSESS AND TEACH, ENDING MACHINE OPERATOR/DISH ROOM WORKER TO OBSERVE AND TEACH AND PROVIDE EDUCATION ON ANEMIA. [code = ANEMIA MANAGEMENT; RN TO ASSESS AND TEACH, ENDING MACHINE OPERATOR/DISH ROOM WORKER TO OBSERVE AND TEACH AND PROVIDE EDUCATION ON ANEMIA.] Future Scheduled Test RN TO OBSE RVE, ASSESS, EVALUATE, AND DEVELOP AN INDIVIDUALIZED PLAN OF CARE. AGENCY MAY ACCEPT ORDERS FROM CONSULTING PHYSICIANS RN TO OBSERVE AND ASSESS, DISH ROOM WORKER/ENDING MACHINE OPERATOR TO OBSERVE FOR RISK FOR FALLS AND INSTRUCT IN FALL PREVENTION, HOME SAFETY, MEDICATION MANAGEMENT, INFECTION PREVENTION, AND NUTRITION MANAGEMENT. RN/DISH ROOM WORKER/ENDING MACHINE OPERATOR NURSE MAY PERFORM O2 SATURATION LEVEL ON ADMISSION AND PRN FOR RN TO ASSESS/DISH ROOM WORKER TO OBSERVE PATIENT, WITH NOTIFICATION TO THE PHYSICIAN IF SATURATION IS 90% IN THE ABSENCE OF MORE SPECIFIC PARAMETERS FROM THE PHYSICIAN. AGENCY MAY PERFORM A RESUMPTION OF CARE VISIT FOLLOWING ANY HOSPITAL ADMISSION. RN/DISH ROOM WORKER/ENDING MACHINE OPERATOR TO MONITOR CO-MORBID CONDITIONS LISTED ON THE PLAN OF CARE AND ANY NEW CONDITIONS THAT PRESENT THEMSELVES DURING THIS EPISODE TO IDENTIFY CHANGES AND INTERVENE TO MINIMIZE COMPLICATIONS. [code = RN TO OBSERVE, ASSESS, EVALUATE, AND DEVELOP AN INDIVIDUALIZED PLAN OF CARE. AGENCY MAY ACCEPT ORDERS FROM CONSULTING PHYSICIANS RN TO OBSERVE AND ASSESS, DISH ROOM WORKER/ENDING MACHINE OPERATOR TO OBSERVE FOR RISK FOR FALLS AND INSTRUCT IN FALL PREVENTION, HOME SAFETY, MEDICATION MANAGEMENT, INFECTION PREVENTION, AND NUTRITION MANAGEMENT. RN/DISH ROOM WORKER/ENDING MACHINE OPERATOR NURSE MAY PERFORM O2 SATURATION LEVEL ON ADMISSION AND PRN FOR RN TO ASSESS/DISH ROOM WORKER TO OBSERVE PATIENT, WITH NOTIFICATION TO THE PHYSICIAN IF SATURATION IS 90% IN THE ABSENCE OF MORE SPECIFIC PARAMETERS FROM THE PHYSICIAN. AGENCY MAY PERFORM A RESUMPTION OF CARE VISIT FOLLOWING ANY HOSPITAL ADMISSION. RN/DISH ROOM WORKER/ENDING MACHINE OPERATOR TO MONITOR CO-MORBID CONDITIONS LISTED ON THE PLAN OF CARE AND ANY NEW CONDITIONS THAT PRESENT THEMSELVES DURING THIS EPISODE TO IDENTIFY CHANGES AND INTERVENE TO MINIMIZE COMPLICATIONS.] Future Scheduled Test PAIN MANAG EMENT; RN TO ASSESS AND TEACH, ENDING MACHINE OPERATOR/DISH ROOM WORKER TO OBSERVE AND TEACH AND PROVIDE EDUCATION ON PAIN MANAGEMENT TECHNIQUES. [code = PAIN MANAGEMENT; RN TO ASSESS AND TEACH, ENDING MACHINE OPERATOR/DISH ROOM WORKER TO OBSERVE AND TEACH AND PROVIDE EDUCATION ON PAIN MANAGEMENT TECHNIQUES.] Future Scheduled Test RISK FOR H OSPITALIZATION; RN TO ASSESS/TEACH, ENDING MACHINE OPERATOR/DISH ROOM WORKER TO OBSERVE/TEACH PATIENT/CAREGIVER ON RISK FOR HOSPITALIZATION/EMERGENCY ROOM VISITS, TEACH SIGNS AND SYMPTOMS THAT PUT PATIENT AT RISK, WHEN TO NOTIFY NURSE/PHYSICIAN OF COMPLICATIONS/DECLINE, AND WHEN TO CALL 911. [code = RISK FOR HOSPITALIZATION; RN TO ASSESS/TEACH, ENDING MACHINE OPERATOR/DISH ROOM WORKER TO OBSERVE/TEACH PATIENT/CAREGIVER ON RISK FOR HOSPITALIZATION/EMERGENCY ROOM VISITS, TEACH SIGNS AND SYMPTOMS THAT PUT PATIENT AT RISK, WHEN TO NOTIFY NURSE/PHYSICIAN OF COMPLICATIONS/DECLINE, AND WHEN TO CALL 911.] Future Scheduled Test CARDIOVASC ULAR SYSTEM; RN TO ASSESS/TEACH, DISH ROOM WORKER/ENDING MACHINE OPERATOR TO OBSERVE/TEACH RELATED TO ALTERED CARDIOVASCULAR STATUS TO MINIMIZE COMPLICATIONS AND REDUCE HOSPITALIZATION. [code = CARDIOVASCULAR SYSTEM; RN TO ASSESS/TEACH, DISH ROOM WORKER/ENDING MACHINE OPERATOR TO OBSERVE/TEACH RELATED TO ALTERED CARDIOVASCULAR STATUS TO MINIMIZE COMPLICATIONS AND REDUCE HOSPITALIZATION.] Future Scheduled Test HYPERTENSI ON MANAGEMENT; RN TO ASSESS AND TEACH, DISH ROOM WORKER/ENDING MACHINE OPERATOR TO OBSERVE AND TEACH WARNING SIGNS AND SYMPTOMS TO AVOID HOSPITALIZATION. [code = HYPERTENSION MANAGEMENT; RN TO ASSESS AND TEACH, DISH ROOM WORKER/ENDING MACHINE OPERATOR TO OBSERVE AND TEACH WARNING SIGNS AND SYMPTOMS TO AVOID HOSPITALIZATION.] Future Scheduled Test HEART FAIL URE MONITORING RN/ENDING MACHINE OPERATOR/DISH ROOM WORKER TO MONITOR PATIENT FOR SIGNS AND SYMPTOMS OF HEART FAILURE EXACERBATION, MONITOR FOR ADHERENCE WITH MEDICATION AND HEART FAILURE MANAGEMENT REGIMEN. [code = HEART FAILURE MONITORING RN/ENDING MACHINE OPERATOR/DISH ROOM WORKER TO MONITOR PATIENT FOR SIGNS AND SYMPTOMS OF HEART FAILURE EXACERBATION, MONITOR FOR ADHERENCE WITH MEDICATION AND HEART FAILURE MANAGEMENT REGIMEN.] Future Scheduled Test DIABETES M ONITORING RN/ENDING MACHINE OPERATOR/DISH ROOM WORKER TO MONITOR BLOOD SUGAR LOG FOR BLOOD SUGAR READINGS THAT ARE BEING CHECKED BY PATIENT, CAREGIVER NEEDED FOR SIGNS AND SYMPTOMS OF HYPER/HYPOGLYCEMIA. PATIENT THERAPEUTIC BLOOD SUGAR PARAMETERS ARE 70 - 300. REPORT BLOOD SUGARS OUT OF RANGE TO PHYSICIAN. NURSE MAY PERFORM FINGER STICK BLOOD GLUCOSE NEEDED FOR SIGNS AND SYMPTOMS OF HYPO AND HYPERGLYCEMIA. RN/ENDING MACHINE OPERATOR/DISH ROOM WORKER TO MONITOR ADHERENCE OF PATIENT/CAREGIVER PERFORMING DIABETIC FOOT CARE AND MAY PERFORM DIABETIC FOOT CARE PRN. RN/ENDING MACHINE OPERATOR/DISH ROOM WORKER TO MONITOR FOR ADHERENCE TO DIABETIC SELF-CARE AND MANAGEMENT INCLUDING MEDICATIONS. [code = DIABETES MONITORING RN/ENDING MACHINE OPERATOR/DISH ROOM WORKER TO MONITOR BLOOD SUGAR LOG FOR BLOOD SUGAR READINGS THAT ARE BEING CHECKED BY PATIENT, CAREGIVER NEEDED FOR SIGNS AND SYMPTOMS OF HYPER/HYPOGLYCEMIA. PATIENT THERAPEUTIC BLOOD SUGAR PARAMETERS ARE 70 - 300. REPORT BLOOD SUGARS OUT OF RANGE TO PHYSICIAN. NURSE MAY PERFORM FINGER STICK BLOOD GLUCOSE NEEDED FOR SIGNS AND SYMPTOMS OF HYPO AND HYPERGLYCEMIA. RN/ENDING MACHINE OPERATOR/DISH ROOM WORKER TO MONITOR ADHERENCE OF PATIENT/CAREGIVER PERFORMING DIABETIC FOOT CARE AND MAY PERFORM DIABETIC FOOT CARE PRN. RN/ENDING MACHINE OPERATOR/DISH ROOM WORKER TO MONITOR FOR ADHERENCE TO DIABETIC SELF-CARE AND MANAGEMENT INCLUDING MEDICATIONS.] Future Scheduled Test HYPOTENSIO N MANAGEMENT; RN TO ASSESS AND TEACH/ DISH ROOM WORKER /ENDING MACHINE OPERATOR TO OBSERVE AND TEACH WARNING SIGNS AND SYMPTOMS TO AVOID HOSPITALIZATION. [code = HYPOTENSION MANAGEMENT; RN TO ASSESS AND TEACH/ DISH ROOM WORKER /ENDING MACHINE OPERATOR TO OBSERVE AND TEACH WARNING SIGNS AND SYMPTOMS TO AVOID HOSPITALIZATION.] Future Scheduled Test ARRHYTHMIA MANAGEMENT; RN TO ASSESS AND TEACH, DISH ROOM WORKER/ENDING MACHINE OPERATOR TO OBSERVE AND TEACH WARNING SIGNS AND SYMPTOMS TO AVOID HOSPITALIZATION. [code = ARRHYTHMIA MANAGEMENT; RN TO ASSESS AND TEACH, DISH ROOM WORKER/ENDING MACHINE OPERATOR TO OBSERVE AND TEACH WARNING SIGNS AND SYMPTOMS TO AVOID HOSPITALIZATION.] Future Scheduled Test MEDICATION MANAGEMENT; RN/DISH ROOM WORKER/ENDING MACHINE OPERATOR TO REVIEW MEDICATIONS FOR INTERACTIONS, EFFECTIVENESS OF DRUG THERAPY, AND SIGNS/SYMPTOMS OF ADVERSE REACTIONS. MAY INSTRUCT AND REINFORCE MEDICATION TEACHING RELATED TO THE USE OF MEDICATIONS, DOSAGE, FREQUENCY, PURPOSE, SIDE EFFECTS, AND TO REPORT COMPLICATIONS. [code = MEDICATION MANAGEMENT; RN/DISH ROOM WORKER/ENDING MACHINE OPERATOR TO REVIEW MEDICATIONS FOR INTERACTIONS, EFFECTIVENESS [...] EVAL UATE, OBSERVE / ASSESS, AND MONITOR, PHYSICAL OPTICS TEACHER TO OBSERVE AND MONITOR, PROVIDE SKILLED THERAPEUTIC INTERVENTION, ACTIVITY, EDUCATION, AND TRAINING TO ADDRESS GEN. WEAKNESS, POOR OVERALL ACTIVITY TOLERANCE, AND FUNCTIONAL LIMITATIONS IMPACTING SAFETY AND INDEPENDENCE. BED MOBILITY (PT/PHYSICAL OPTICS TEACHER) PT/PHYSICAL OPTICS TEACHER TO PROVIDE GAIT TRAINING FOR IMPROVED MOBILITY AND /OR TO NORMALIZE GAIT PATTERN THERAPEUTIC EXERCISES AND ESTABLISHING A HOME EXERCISE PROGRAM (PT/PHYSICAL OPTICS TEACHER) PT/PHYSICAL OPTICS TEACHER TO PROVIDE STAIR TRAINING PT / PHYSICAL OPTICS TEACHER TO MONITOR AND EDUCATE ON OXYGEN SATURATION DURING ADLS/IADLS, NOTIFY PHYSICIAN AND/OR THE RN CLINICAL HAND WELT BUTTER FOR PHYSICIAN NOTIFICATION AND IF O2 SATS BELOW PHYSICIAN ORDERED PARAMETERS AFTER 10 MIN OF REST PT / PHYSICAL OPTICS TEACHER TO OBSERVE FOR EARLY SIGNS AND SYMPTOMS OF DEPRESSION OR DEPRESSION GETTING WORSE AND TO EDUCATE ON HOW TO FIND HELP. PT / PHYSICAL OPTICS TEACHER MAY EDUCATE ON PAIN MANAGEMENT CLINICALLY INDICATED, INCLUDING NON-PHARMACOLOGICAL PAIN REDUCTION TECHNIQUES PT / PHYSICAL OPTICS TEACHER TO MONITOR FOR HYPO/HYPERGLYCEMIA AND CONDUCT ROUTINE FOOT INSPECTIONS. RECORD PATIENT REPORTED BLOOD SUGAR LEVELS AND NOTIFY PHYSICIAN AND/OR THE RN CLINICAL HAND WELT BUTTER FOR PHYSICIAN NOTIFICATION IF BLOOD SUGAR LEVELS ARE OUTSIDE ORDERED PARAMETERS. TEACH PATIENT/CAREGIVER ON DAILY FOOT INSPECTIONS PT / PHYSICAL OPTICS TEACHER TO INSTRUCT PATIENT/CAREGIVER ON RISK FOR HOSPITALIZATION/EMERGENCY ROOM VISITS, TEACH SIGNS AND SYMPTOMS THAT PUT PATIENT AT RISK, WHEN TO NOTIFY NURSE/PHYSICIAN OF COMPLICATIONS/DECLINE, AND WHEN TO CALL 911. PT/PHYSICAL OPTICS TEACHER TO EDUCATE ON ARTHRITIS SELF-MANAGEMENT PT / PHYSICAL OPTICS TEACHER TO EDUCATE ON HEART FAILURE SELF-MANAGEMENT PT / PHYSICAL OPTICS TEACHER TO EDUCATE ON HYPERTENSION SELF-MANAGEMENT PT TO ASSESS / PHYSICAL OPTICS TEACHER TO MONITOR CARDIO/RESPIRATORY SYSTEM; AND NOTIFY THE PHYSICIAN AND/OR THE RN CLINICAL HAND WELT BUTTER FOR PHYSICIAN NOTIFICATION FOR EARLY SIGNS AND SYMPTOMS OF EXACERBATION OR DETERIORATION. PT / PHYSICAL OPTICS TEACHER TO EDUCATE ON ATRIAL FIBRILLATION SELF-MANAGEMENT. PT / PHYSICAL OPTICS TEACHER TO EDUCATE ON PNEUMONIA / ASPIRATION PNEUMONIA SELF-MANAGEMENT. PT/PHYSICAL OPTICS TEACHER TO IDENTIFY FALL RISK FACTORS; EDUCATE THE PATIENT/CAREGIVER ON WAYS TO REDUCE FALL RISK FACTORS AND ESTABLISH HOME EXERCISE PROGRAM TO MINIMIZE FALL RISK. MAY TEACH THE PATIENT FLOOR RECOVERY WHEN CLINICALLY APPROPRIATE [code = PT TO EVALUATE, OBSERVE / ASSESS, AND MONITOR, PHYSICAL OPTICS TEACHER TO OBSERVE AND MONITOR, PROVIDE SKILLED THERAPEUTIC INTERVENTION, ACTIVITY, EDUCATION, AND TRAINING TO ADDRESS GEN. WEAKNESS, POOR OVERALL ACTIVITY TOLERANCE, AND FUNCTIONAL LIMITATIONS IMPACTING SAFETY AND INDEPENDENCE. BED MOBILITY (PT/PHYSICAL OPTICS TEACHER) PT/PHYSICAL OPTICS TEACHER TO PROVIDE GAIT TRAINING FOR IMPROVED MOBILITY AND /OR TO NORMALIZE GAIT PATTERN THERAPEUTIC EXERCISES AND ESTABLISHING A HOME EXERCISE PROGRAM (PT/PHYSICAL OPTICS TEACHER) PT/PHYSICAL OPTICS TEACHER TO PROVIDE STAIR TRAINING PT / PHYSICAL OPTICS TEACHER TO MONITOR AND EDUCATE ON OXYGEN SATURATION DURING ADLS/IADLS, NOTIFY PHYSICIAN AND/OR THE RN CLINICAL HAND WELT BUTTER FOR PHYSICIAN NOTIFICATION AND IF O2 SATS BELOW PHYSICIAN ORDERED PARAMETERS AFTER 10 MIN OF REST PT / PHYSICAL OPTICS TEACHER TO OBSERVE FOR EARLY SIGNS AND SYMPTOMS OF DEPRESSION OR DEPRESSION GETTING WORSE AND TO EDUCATE ON HOW TO FIND HELP. PT / PHYSICAL OPTICS TEACHER MAY EDUCATE ON PAIN MANAGEMENT CLINICALLY INDICATED, INCLUDING NON-PHARMACOLOGICAL PAIN REDUCTION TECHNIQUES PT / PHYSICAL OPTICS TEACHER TO MONITOR FOR HYPO/HYPERGLYCEMIA AND CONDUCT ROUTINE FOOT INSPECTIONS. RECORD PATIENT REPORTED BLOOD SUGAR LEVELS AND NOTIFY PHYSICIAN AND/OR THE RN CLINICAL HAND WELT BUTTER FOR PHYSICIAN NOTIFICATION IF BLOOD SUGAR LEVELS ARE OUTSIDE ORDERED PARAMETERS. TEACH PATIENT/CAREGIVER ON DAILY FOOT INSPECTIONS PT / PHYSICAL OPTICS TEACHER TO INSTRUCT PATIENT/CAREGIVER ON RISK FOR HOSPITALIZATION/EMERGENCY ROOM VISITS, TEACH SIGNS AND SYMPTOMS THAT PUT PATIENT AT RISK, WHEN TO NOTIFY NURSE/PHYSICIAN OF COMPLICATIONS/DECLINE, AND WHEN TO CALL 911. PT/PHYSICAL OPTICS TEACHER TO EDUCATE ON ARTHRITIS SELF-MANAGEMENT PT / PHYSICAL OPTICS TEACHER TO EDUCATE ON HEART FAILURE SELF-MANAGEMENT PT / PHYSICAL OPTICS TEACHER TO EDUCATE ON HYPERTENSION SELF-MANAGEMENT PT TO ASSESS / PHYSICAL OPTICS TEACHER TO MONITOR CARDIO/RESPIRATORY SYSTEM; AND NOTIFY THE PHYSICIAN AND/OR THE RN CLINICAL HAND WELT BUTTER FOR PHYSICIAN NOTIFICATION FOR EARLY SIGNS AND SYMPTOMS OF EXACERBATION OR DETERIORATION. PT / PHYSICAL OPTICS TEACHER TO EDUCATE ON ATRIAL FIBRILLATION SELF-MANAGEMENT. PT / PHYSICAL OPTICS TEACHER TO EDUCATE ON PNEUMONIA / ASPIRATION PNEUMONIA SELF-MANAGEMENT. PT/PHYSICAL OPTICS TEACHER TO IDENTIFY FALL RISK FACTORS; EDUCATE THE PATIENT/CAREGIVER ON WAYS TO REDUCE FALL RISK FACTORS AND ESTABLISH HOME EXERCISE PROGRAM TO MINIMIZE FALL RISK. MAY TEACH THE PATIENT FLOOR RECOVERY WHEN CLINICALLY APPROPRIATE] Future Scheduled Test AGENCY MAY PERFORM A RESUMPTION OF CARE VISIT FOLLOWING ANY HOSPITAL ADMISSION. OT TO EVALUATE, OBSERVE / ASSESS, AND MONITOR, OPERATIONS EXAMINER TO OBSERVE AND MONITOR, PROVIDE SKILLED THERAPEUTIC INTERVENTION, ACTIVITY, EDUCATION, AND TRAINING TO ADDRESS SAFETY AND INDEPENDENCE OF ADLS AND FUNCTIONAL TRANSFERS IN HOME ENVIRONMENT. ACTIVITIES OF DAILY LIVING (OT/MARIANNE) THERAPEUTIC EXERCISE (OT/OPERATIONS EXAMINER) ENERGY CONSERVATION/ACTIVITY DEMAND (OT/OPERATIONS EXAMINER) OT/OPERATIONS EXAMINER TO MONITOR AND EDUCATE ON OXYGEN SATURATION DURING ADLS/IADLS, NOTIFY PHYSICIAN AND/OR THE RN CLINICAL HAND WELT BUTTER FOR PHYSICIAN NOTIFICATION AND IF O2 SATS BELOW 90% AFTER 10 MIN OF REST. OT / OPERATIONS EXAMINER TO IDENTIFY FALL RISK FACTORS; EDUCATE THE PATIENT/CAREGIVER ON WAYS TO REDUCE FALL RISK FACTORS AND ESTABLISH HOME EXERCISE PROGRAM TO MINIMIZE FALL RISK. MAY TEACH THE PATIENT FLOOR RECOVERY WHEN CLINICALLY APPROPRIATE. OT/OPERATIONS EXAMINER TO EDUCATE ON HYPERTENSION SELF-MANAGEMENT OT/MARIANNE TO EDUCATE ON ATRIAL FIBRILLATION SELF-MANAGEMENT. [code = AGENCY MAY PERFORM A RESUMPTION OF CARE VISIT FOLLOWING ANY HOSPITAL ADMISSION. OT TO EVALUATE, OBSERVE / ASSESS, AND MONITOR, OPERATIONS EXAMINER TO OBSERVE AND MONITOR, PROVIDE SKILLED THERAPEUTIC INTERVENTION, ACTIVITY, EDUCATION, AND TRAINING TO ADDRESS SAFETY AND INDEPENDENCE OF ADLS AND FUNCTIONAL TRANSFERS IN HOME ENVIRONMENT. ACTIVITIES OF DAILY LIVING (OT/MARIANNE) THERAPEUTIC EXERCISE (OT/OPERATIONS EXAMINER) ENERGY CONSERVATION/ACTIVITY DEMAND (OT/MARIANNE) OT/OPERATIONS EXAMINER TO MONITOR AND EDUCATE ON OXYGEN SATURATION DURING ADLS/IADLS, NOTIFY PHYSICIAN AND/OR THE RN CLINICAL HAND WELT BUTTER FOR PHYSICIAN NOTIFICATION AND IF O2 SATS BELOW 90% AFTER 10 MIN OF REST. OT / MARIANNE TO IDENTIFY FALL RISK FACTORS; EDUCATE THE PATIENT/CAREGIVER ON WAYS TO REDUCE FALL RISK FACTORS AND ESTABLISH HOME EXERCISE PROGRAM TO MINIMIZE FALL RISK. MAY TEACH THE PATIENT FLOOR RECOVERY WHEN CLINICALLY APPROPRIATE. OT/OPERATIONS EXAMINER TO EDUCATE ON HYPERTENSION SELF-MANAGEMENT OT/MARIANNE TO [...] OF SKIN INTEGRITY ISSUES FROM SBA TO VT WITHIN 2 WKS. PT STG: PATIENT WILL [...] TO SAFELY NEGOTIATE STAIRS FROM SBA TO VT WITH 2 STEPS W/O HANDRAIL VIA FRONT [...] Date/Time Encounter Type Admission Type Attending [facility] Care Department Encounter ID Discharge Date Discharge Status Discharge Condition Discharge Reason Percent Goals Met 2025-02-07 00:00:00 2025-04-07 00:00:00 Outpatient NEW ADMISSION [facility] [id number] 26.42
--- OUTSIDE RECORDS SUMMARY | 2025-04-06 18:00 | XMS_ITS | Clinical Summary ---
Author Organization Unknown Care Team Providers Care Penal Officer Name Role Phone DIGNA ARIEL, ESTRELLA Unavailable Unava dinora STOKES RN, FRANKIE Unavailable Unavailabl e KARI PT, DIDI Unavailable Unavailable NAT OIL HEATER INSTALLER, GAUDENCIO Unavailable Unavailabl e RADHA OT, ROLANDO Unavailable Unavailable JOANNE STEVEN, HATTIE Unavailable Unavailable Payers Payer Name Policy Type Policy Number Effective Date Expira tion Date MEDICARE.[facility] [id number] Problems Condition Name Condition Details Condition Category Status Onset Date Resolution Date Last Treatment Date Treating Clinician Comments 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 02-07 [...] OF PNEUMONIA (RECURRENT) Active 02-07 00:00: 00 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) USE OF SYSTEMIC STEROIDS Active [...] 80 mg tablet 02-07 00:00: 00 Yes [id number] CHOLESTEROL 1 tablet DAILY 1 tablet DAILY (route: oral) Med Classific ation: Cardiovas cular Therapy Agents digoxin 125 mcg (0.125 mg) tablet 02-07 00:00: 00 02-21 23:59 :00 No [id number] HEART RHYTHM 1 tablet DAILY 1 tablet DAILY (route: oral) Med Classific ation: Cardiovas cular Therapy Agents escitalopra m 10 mg tablet 02-07 00:00: 00 Yes [id number] MOOD 1 tablet DAILY 1 tablet DAILY (route: oral) Med Classific ation: Central Nervous System Agents ezetimibe 10 mg tablet 02-07 00:00: 00 Yes [id number] CHOLESTEROL 1 tablet DAILY 1 tablet DAILY (route: oral) Med Classific ation: Cardiovas cular Therapy Agents metoprolol succinate ER 25 mg tablet,exte nded release 24 hr 02-07 00:00: 00 02-21 23:59 :00 No [id number] BLOOD PRESSURE 0.5 tablet DAILY 0.5 tablet DAILY (route: oral) Med Classific ation: Cardiovas cular Therapy Agents pantoprazol e 40 mg tablet,joão yed release 02-07 00:00: 00 02-21 23:59 :00 No [id number] STOMACH ACID 1 tablet DAILY 1 tablet DAILY (route: oral) Med Classific ation: Gastroint estinal Therapy Agents prednisone 5 mg tablet 02-07 00:00: 00 Yes [id number] ADRENAL INSUFFICIEN CY 1 tablet DAILY 1 tablet DAILY (route: oral) Med Classific ation: Endocrine spironolact one 25 mg tablet 02-07 00:00: 00 Yes [id number] FLUID RETENTION 0.5 tablet DAILY 0.5 tablet DAILY (route: oral) Med Classific ation: Cardiovas cular Therapy Agents tamsulosin 0.4 mg capsule 02-07 00:00: 00 02-21 23:59 :00 No [id number] URINARY HEALTH 1 capsule DAILY 1 capsule DAILY (route: oral) Med Classific ation: Genitouri nary Therapy acetaminoph en 325 mg tablet 2024-05 00:00: 00 Yes [id number] PAIN 2 tablet 2 TIMES DAILY 2 tablet 2 TIMES DAILY (route: oral) Med Classific ation: Analgesic , Anti-infl ammatory or Antipyret ic aspirin 81 mg tablet 2024-05 00:00: 00 Yes [id number] ANTICOAGULA NT 1 tablet DAILY 1 tablet DAILY (route: oral) Med Classific ation: Hematolog ical Agents ipratropium 0.5 mg-albutero l 3 mg (2.5 mg base)/3 mL nebulizatio n soln 2024-05 00:00: 00 Yes [id number] COPD 3 mL EVERY 6 HOURS 3 mL EVERY 6 HOURS (route: inhalation ) Med Classific ation: Respirato ry Therapy Agents Lanoxin 62.5 mcg (0.0625 mg) tablet 2024-05 00:00: 00 Yes [id number] CHF 1 tablet DAILY 1 tablet DAILY (route: oral) Med Classific ation: Cardiovas cular Therapy Agents Lasix 20 mg tablet 2024-05 00:00: 00 Yes [id number] CHF 1 tablet DAILY 1 tablet DAILY (route: oral) Med Classific ation: Cardiovas cular Therapy Agents Toprol XL 25 mg tablet,exte nded release 2024-05 00:00: 00 Yes [id number] BP 25 mg DAILY 25 mg DAILY [...] SYSTEM MANAGEMENT; RN TO ASSESS AND TEACH, BARBERING INSTRUCTOR/BALL ROLLING MACHINE OPERATOR TO OBSERVE AND TEACH RELATED TO ALTERED RESPIRATORY STATUS TO MINIMIZE COMPLICATIONS AND REDUCE HOSPITALIZATION. [code = SN 1WK9 PT 1WK1 OT EFFECTIVE 02/10/2025K1 RESPIRATORY SYSTEM MANAGEMENT; RN TO ASSESS AND TEACH, BARBERING INSTRUCTOR/BALL ROLLING MACHINE OPERATOR TO OBSERVE AND TEACH RELATED TO ALTERED RESPIRATORY STATUS TO MINIMIZE COMPLICATIONS AND REDUCE HOSPITALIZATION.] Future Scheduled Test TRACHEOSTO MY CARE MANAGEMENT; RN/BARBERING INSTRUCTOR/BALL ROLLING MACHINE OPERATOR TO INSTRUCT PATIENT/CAREGIVER ON CARE AND MANAGEMENT OF TRACHEOSTOMY. RN/ BARBERING INSTRUCTOR/BALL ROLLING MACHINE OPERATOR TO PROVIDE SKILLED TEACHING ON TRACH COLLAR SUCTIONING PRN WITH 14 FR SUCTION CATHETER PER PATIENT TRACH CARE WITH INNER CANNULA: REMOVE INNER CANNULA, CLEANSE WITH NORMAL SALINE AND OR STERILE WATER AND REINSERT NON-DISPOSABLE CANNULA SIZE OF INNER CANNULA 5 BROOKS [code = TRACHEOSTOMY CARE MANAGEMENT; RN/BARBERING INSTRUCTOR/BALL ROLLING MACHINE OPERATOR TO INSTRUCT PATIENT/CAREGIVER ON CARE AND MANAGEMENT OF TRACHEOSTOMY. RN/ BARBERING INSTRUCTOR/BALL ROLLING MACHINE OPERATOR TO PROVIDE SKILLED TEACHING ON TRACH COLLAR SUCTIONING PRN WITH 14 FR SUCTION CATHETER PER PATIENT TRACH CARE WITH INNER CANNULA: REMOVE INNER CANNULA, CLEANSE WITH NORMAL SALINE AND OR STERILE WATER AND REINSERT NON-DISPOSABLE CANNULA SIZE OF INNER CANNULA 5 BROOKS] Future Scheduled Test FALL REDUC TION MANAGEMENT; RN TO ASSESS AND OBSERVE, BARBERING INSTRUCTOR/BALL ROLLING MACHINE OPERATOR TO OBSERVE FALL RISK FACTORS AND EDUCATE PATIENT/CAREGIVER ON STRATEGIES TO MINIMIZE THE RISK OF FALLING. [code = FALL REDUCTION MANAGEMENT; RN TO ASSESS AND OBSERVE, BARBERING INSTRUCTOR/BALL ROLLING MACHINE OPERATOR TO OBSERVE FALL RISK FACTORS AND EDUCATE PATIENT/CAREGIVER ON STRATEGIES TO MINIMIZE THE RISK OF FALLING.] Future Scheduled Test ANEMIA MAN AGEMENT; RN TO ASSESS AND TEACH, BALL ROLLING MACHINE OPERATOR/BARBERING INSTRUCTOR TO OBSERVE AND TEACH AND PROVIDE EDUCATION ON ANEMIA. [code = ANEMIA MANAGEMENT; RN TO ASSESS AND TEACH, BALL ROLLING MACHINE OPERATOR/BARBERING INSTRUCTOR TO OBSERVE AND TEACH AND PROVIDE EDUCATION ON ANEMIA.] Future Scheduled Test RN TO OBSE RVE, ASSESS, EVALUATE, AND DEVELOP AN INDIVIDUALIZED PLAN OF CARE. AGENCY MAY ACCEPT ORDERS FROM CONSULTING PHYSICIANS RN TO OBSERVE AND ASSESS, BARBERING INSTRUCTOR/BALL ROLLING MACHINE OPERATOR TO OBSERVE FOR RISK FOR FALLS AND INSTRUCT IN FALL PREVENTION, HOME SAFETY, MEDICATION MANAGEMENT, INFECTION PREVENTION, AND NUTRITION MANAGEMENT. RN/BARBERING INSTRUCTOR/BALL ROLLING MACHINE OPERATOR NURSE MAY PERFORM O2 SATURATION LEVEL ON ADMISSION AND PRN FOR RN TO ASSESS/BARBERING INSTRUCTOR TO OBSERVE PATIENT, WITH NOTIFICATION TO THE PHYSICIAN IF SATURATION IS 90% IN THE ABSENCE OF MORE SPECIFIC PARAMETERS FROM THE PHYSICIAN. AGENCY MAY PERFORM A RESUMPTION OF CARE VISIT FOLLOWING ANY HOSPITAL ADMISSION. RN/BARBERING INSTRUCTOR/BALL ROLLING MACHINE OPERATOR TO MONITOR CO-MORBID CONDITIONS LISTED ON THE PLAN OF CARE AND ANY NEW CONDITIONS THAT PRESENT THEMSELVES DURING THIS EPISODE TO IDENTIFY CHANGES AND INTERVENE TO MINIMIZE COMPLICATIONS. [code = RN TO OBSERVE, ASSESS, EVALUATE, AND DEVELOP AN INDIVIDUALIZED PLAN OF CARE. AGENCY MAY ACCEPT ORDERS FROM CONSULTING PHYSICIANS RN TO OBSERVE AND ASSESS, BARBERING INSTRUCTOR/BALL ROLLING MACHINE OPERATOR TO OBSERVE FOR RISK FOR FALLS AND INSTRUCT IN FALL PREVENTION, HOME SAFETY, MEDICATION MANAGEMENT, INFECTION PREVENTION, AND NUTRITION MANAGEMENT. RN/BARBERING INSTRUCTOR/BALL ROLLING MACHINE OPERATOR NURSE MAY PERFORM O2 SATURATION LEVEL ON ADMISSION AND PRN FOR RN TO ASSESS/BARBERING INSTRUCTOR TO OBSERVE PATIENT, WITH NOTIFICATION TO THE PHYSICIAN IF SATURATION IS 90% IN THE ABSENCE OF MORE SPECIFIC PARAMETERS FROM THE PHYSICIAN. AGENCY MAY PERFORM A RESUMPTION OF CARE VISIT FOLLOWING ANY HOSPITAL ADMISSION. RN/BARBERING INSTRUCTOR/BALL ROLLING MACHINE OPERATOR TO MONITOR CO-MORBID CONDITIONS LISTED ON THE PLAN OF CARE AND ANY NEW CONDITIONS THAT PRESENT THEMSELVES DURING THIS EPISODE TO IDENTIFY CHANGES AND INTERVENE TO MINIMIZE COMPLICATIONS.] Future Scheduled Test PAIN MANAG EMENT; RN TO ASSESS AND TEACH, BALL ROLLING MACHINE OPERATOR/BARBERING INSTRUCTOR TO OBSERVE AND TEACH AND PROVIDE EDUCATION ON PAIN MANAGEMENT TECHNIQUES. [code = PAIN MANAGEMENT; RN TO ASSESS AND TEACH, BALL ROLLING MACHINE OPERATOR/BARBERING INSTRUCTOR TO OBSERVE AND TEACH AND PROVIDE EDUCATION ON PAIN MANAGEMENT TECHNIQUES.] Future Scheduled Test RISK FOR H OSPITALIZATION; RN TO ASSESS/TEACH, BALL ROLLING MACHINE OPERATOR/BARBERING INSTRUCTOR TO OBSERVE/TEACH PATIENT/CAREGIVER ON RISK FOR HOSPITALIZATION/EMERGENCY ROOM VISITS, TEACH SIGNS AND SYMPTOMS THAT PUT PATIENT AT RISK, WHEN TO NOTIFY NURSE/PHYSICIAN OF COMPLICATIONS/DECLINE, AND WHEN TO CALL 911. [code = RISK FOR HOSPITALIZATION; RN TO ASSESS/TEACH, BALL ROLLING MACHINE OPERATOR/BARBERING INSTRUCTOR TO OBSERVE/TEACH PATIENT/CAREGIVER ON RISK FOR HOSPITALIZATION/EMERGENCY ROOM VISITS, TEACH SIGNS AND SYMPTOMS THAT PUT PATIENT AT RISK, WHEN TO NOTIFY NURSE/PHYSICIAN OF COMPLICATIONS/DECLINE, AND WHEN TO CALL 911.] Future Scheduled Test CARDIOVASC ULAR SYSTEM; RN TO ASSESS/TEACH, BARBERING INSTRUCTOR/BALL ROLLING MACHINE OPERATOR TO OBSERVE/TEACH RELATED TO ALTERED CARDIOVASCULAR STATUS TO MINIMIZE COMPLICATIONS AND REDUCE HOSPITALIZATION. [code = CARDIOVASCULAR SYSTEM; RN TO ASSESS/TEACH, BARBERING INSTRUCTOR/BALL ROLLING MACHINE OPERATOR TO OBSERVE/TEACH RELATED TO ALTERED CARDIOVASCULAR STATUS TO MINIMIZE COMPLICATIONS AND REDUCE HOSPITALIZATION.] Future Scheduled Test HYPERTENSI ON MANAGEMENT; RN TO ASSESS AND TEACH, BARBERING INSTRUCTOR/BALL ROLLING MACHINE OPERATOR TO OBSERVE AND TEACH WARNING SIGNS AND SYMPTOMS TO AVOID HOSPITALIZATION. [code = HYPERTENSION MANAGEMENT; RN TO ASSESS AND TEACH, BARBERING INSTRUCTOR/BALL ROLLING MACHINE OPERATOR TO OBSERVE AND TEACH WARNING SIGNS AND SYMPTOMS TO AVOID HOSPITALIZATION.] Future Scheduled Test HEART FAIL URE MONITORING RN/BALL ROLLING MACHINE OPERATOR/BARBERING INSTRUCTOR TO MONITOR PATIENT FOR SIGNS AND SYMPTOMS OF HEART FAILURE EXACERBATION, MONITOR FOR ADHERENCE WITH MEDICATION AND HEART FAILURE MANAGEMENT REGIMEN. [code = HEART FAILURE MONITORING RN/BALL ROLLING MACHINE OPERATOR/BARBERING INSTRUCTOR TO MONITOR PATIENT FOR SIGNS AND SYMPTOMS OF HEART FAILURE EXACERBATION, MONITOR FOR ADHERENCE WITH MEDICATION AND HEART FAILURE MANAGEMENT REGIMEN.] Future Scheduled Test DIABETES M ONITORING RN/BALL ROLLING MACHINE OPERATOR/BARBERING INSTRUCTOR TO MONITOR BLOOD SUGAR LOG FOR BLOOD SUGAR READINGS THAT ARE BEING CHECKED BY PATIENT, CAREGIVER NEEDED FOR SIGNS AND SYMPTOMS OF HYPER/HYPOGLYCEMIA. PATIENT THERAPEUTIC BLOOD SUGAR PARAMETERS ARE 70 - 300. REPORT BLOOD SUGARS OUT OF RANGE TO PHYSICIAN. NURSE MAY PERFORM FINGER STICK BLOOD GLUCOSE NEEDED FOR SIGNS AND SYMPTOMS OF HYPO AND HYPERGLYCEMIA. RN/BALL ROLLING MACHINE OPERATOR/BARBERING INSTRUCTOR TO MONITOR ADHERENCE OF PATIENT/CAREGIVER PERFORMING DIABETIC FOOT CARE AND MAY PERFORM DIABETIC FOOT CARE PRN. RN/BALL ROLLING MACHINE OPERATOR/BARBERING INSTRUCTOR TO MONITOR FOR ADHERENCE TO DIABETIC SELF-CARE AND MANAGEMENT INCLUDING MEDICATIONS. [code = DIABETES MONITORING RN/BALL ROLLING MACHINE OPERATOR/BARBERING INSTRUCTOR TO MONITOR BLOOD SUGAR LOG FOR BLOOD SUGAR READINGS THAT ARE BEING CHECKED BY PATIENT, CAREGIVER NEEDED FOR SIGNS AND SYMPTOMS OF HYPER/HYPOGLYCEMIA. PATIENT THERAPEUTIC BLOOD SUGAR PARAMETERS ARE 70 - 300. REPORT BLOOD SUGARS OUT OF RANGE TO PHYSICIAN. NURSE MAY PERFORM FINGER STICK BLOOD GLUCOSE NEEDED FOR SIGNS AND SYMPTOMS OF HYPO AND HYPERGLYCEMIA. RN/BALL ROLLING MACHINE OPERATOR/BARBERING INSTRUCTOR TO MONITOR ADHERENCE OF PATIENT/CAREGIVER PERFORMING DIABETIC FOOT CARE AND MAY PERFORM DIABETIC FOOT CARE PRN. RN/BALL ROLLING MACHINE OPERATOR/BARBERING INSTRUCTOR TO MONITOR FOR ADHERENCE TO DIABETIC SELF-CARE AND MANAGEMENT INCLUDING MEDICATIONS.] Future Scheduled Test HYPOTENSIO N MANAGEMENT; RN TO ASSESS AND TEACH/ BARBERING INSTRUCTOR /BALL ROLLING MACHINE OPERATOR TO OBSERVE AND TEACH WARNING SIGNS AND SYMPTOMS TO AVOID HOSPITALIZATION. [code = HYPOTENSION MANAGEMENT; RN TO ASSESS AND TEACH/ BARBERING INSTRUCTOR /BALL ROLLING MACHINE OPERATOR TO OBSERVE AND TEACH WARNING SIGNS AND SYMPTOMS TO AVOID HOSPITALIZATION.] Future Scheduled Test ARRHYTHMIA MANAGEMENT; RN TO ASSESS AND TEACH, BARBERING INSTRUCTOR/BALL ROLLING MACHINE OPERATOR TO OBSERVE AND TEACH WARNING SIGNS AND SYMPTOMS TO AVOID HOSPITALIZATION. [code = ARRHYTHMIA MANAGEMENT; RN TO ASSESS AND TEACH, BARBERING INSTRUCTOR/BALL ROLLING MACHINE OPERATOR TO OBSERVE AND TEACH WARNING SIGNS AND SYMPTOMS TO AVOID HOSPITALIZATION.] Future Scheduled Test MEDICATION MANAGEMENT; RN/BARBERING INSTRUCTOR/BALL ROLLING MACHINE OPERATOR TO REVIEW MEDICATIONS FOR INTERACTIONS, EFFECTIVENESS OF DRUG THERAPY, AND SIGNS/SYMPTOMS OF ADVERSE REACTIONS. MAY INSTRUCT AND REINFORCE MEDICATION TEACHING RELATED TO THE USE OF MEDICATIONS, DOSAGE, FREQUENCY, PURPOSE, SIDE EFFECTS, AND TO REPORT COMPLICATIONS. [code = MEDICATION MANAGEMENT; RN/BARBERING INSTRUCTOR/BALL ROLLING MACHINE OPERATOR TO REVIEW MEDICATIONS FOR INTERACTIONS, [...] EVAL UATE, OBSERVE / ASSESS, AND MONITOR, OIL HEATER INSTALLER TO OBSERVE AND MONITOR, PROVIDE SKILLED THERAPEUTIC INTERVENTION, ACTIVITY, EDUCATION, AND TRAINING TO ADDRESS GEN. WEAKNESS, POOR OVERALL ACTIVITY TOLERANCE, AND FUNCTIONAL LIMITATIONS IMPACTING SAFETY AND INDEPENDENCE. BED MOBILITY (PT/OIL HEATER INSTALLER) PT/OIL HEATER INSTALLER TO PROVIDE GAIT TRAINING FOR IMPROVED MOBILITY AND /OR TO NORMALIZE GAIT PATTERN THERAPEUTIC EXERCISES AND ESTABLISHING A HOME EXERCISE PROGRAM (PT/OIL HEATER INSTALLER) PT/OIL HEATER INSTALLER TO PROVIDE STAIR TRAINING PT / OIL HEATER INSTALLER TO MONITOR AND EDUCATE ON OXYGEN SATURATION DURING ADLS/IADLS, NOTIFY PHYSICIAN AND/OR THE RN CLINICAL LEAD SOLUTIONS ARCHITECT FOR PHYSICIAN NOTIFICATION AND IF O2 SATS BELOW PHYSICIAN ORDERED PARAMETERS AFTER 10 MIN OF REST PT / OIL HEATER INSTALLER TO OBSERVE FOR EARLY SIGNS AND SYMPTOMS OF DEPRESSION OR DEPRESSION GETTING WORSE AND TO EDUCATE ON HOW TO FIND HELP. PT / OIL HEATER INSTALLER MAY EDUCATE ON PAIN MANAGEMENT CLINICALLY INDICATED, INCLUDING NON-PHARMACOLOGICAL PAIN REDUCTION TECHNIQUES PT / OIL HEATER INSTALLER TO MONITOR FOR HYPO/HYPERGLYCEMIA AND CONDUCT ROUTINE FOOT INSPECTIONS. RECORD PATIENT REPORTED BLOOD SUGAR LEVELS AND NOTIFY PHYSICIAN AND/OR THE RN CLINICAL LEAD SOLUTIONS ARCHITECT FOR PHYSICIAN NOTIFICATION IF BLOOD SUGAR LEVELS ARE OUTSIDE ORDERED PARAMETERS. TEACH PATIENT/CAREGIVER ON DAILY FOOT INSPECTIONS PT / OIL HEATER INSTALLER TO INSTRUCT PATIENT/CAREGIVER ON RISK FOR HOSPITALIZATION/EMERGENCY ROOM VISITS, TEACH SIGNS AND SYMPTOMS THAT PUT PATIENT AT RISK, WHEN TO NOTIFY NURSE/PHYSICIAN OF COMPLICATIONS/DECLINE, AND WHEN TO CALL 911. PT/OIL HEATER INSTALLER TO EDUCATE ON ARTHRITIS SELF-MANAGEMENT PT / OIL HEATER INSTALLER TO EDUCATE ON HEART FAILURE SELF-MANAGEMENT PT / OIL HEATER INSTALLER TO EDUCATE ON HYPERTENSION SELF-MANAGEMENT PT TO ASSESS / OIL HEATER INSTALLER TO MONITOR CARDIO/RESPIRATORY SYSTEM; AND NOTIFY THE PHYSICIAN AND/OR THE RN CLINICAL LEAD SOLUTIONS ARCHITECT FOR PHYSICIAN NOTIFICATION FOR EARLY SIGNS AND SYMPTOMS OF EXACERBATION OR DETERIORATION. PT / OIL HEATER INSTALLER TO EDUCATE ON ATRIAL FIBRILLATION SELF-MANAGEMENT. PT / OIL HEATER INSTALLER TO EDUCATE ON PNEUMONIA / ASPIRATION PNEUMONIA SELF-MANAGEMENT. PT/OIL HEATER INSTALLER TO IDENTIFY FALL RISK FACTORS; EDUCATE THE PATIENT/CAREGIVER ON WAYS TO REDUCE FALL RISK FACTORS AND ESTABLISH HOME EXERCISE PROGRAM TO MINIMIZE FALL RISK. MAY TEACH THE PATIENT FLOOR RECOVERY WHEN CLINICALLY APPROPRIATE [code = PT TO EVALUATE, OBSERVE / ASSESS, AND MONITOR, OIL HEATER INSTALLER TO OBSERVE AND MONITOR, PROVIDE SKILLED THERAPEUTIC INTERVENTION, ACTIVITY, EDUCATION, AND TRAINING TO ADDRESS GEN. WEAKNESS, POOR OVERALL ACTIVITY TOLERANCE, AND FUNCTIONAL LIMITATIONS IMPACTING SAFETY AND INDEPENDENCE. BED MOBILITY (PT/OIL HEATER INSTALLER) PT/OIL HEATER INSTALLER TO PROVIDE GAIT TRAINING FOR IMPROVED MOBILITY AND /OR TO NORMALIZE GAIT PATTERN THERAPEUTIC EXERCISES AND ESTABLISHING A HOME EXERCISE PROGRAM (PT/OIL HEATER INSTALLER) PT/OIL HEATER INSTALLER TO PROVIDE STAIR TRAINING PT / OIL HEATER INSTALLER TO MONITOR AND EDUCATE ON OXYGEN SATURATION DURING ADLS/IADLS, NOTIFY PHYSICIAN AND/OR THE RN CLINICAL LEAD SOLUTIONS ARCHITECT FOR PHYSICIAN NOTIFICATION AND IF O2 SATS BELOW PHYSICIAN ORDERED PARAMETERS AFTER 10 MIN OF REST PT / OIL HEATER INSTALLER TO OBSERVE FOR EARLY SIGNS AND SYMPTOMS OF DEPRESSION OR DEPRESSION GETTING WORSE AND TO EDUCATE ON HOW TO FIND HELP. PT / OIL HEATER INSTALLER MAY EDUCATE ON PAIN MANAGEMENT CLINICALLY INDICATED, INCLUDING NON-PHARMACOLOGICAL PAIN REDUCTION TECHNIQUES PT / OIL HEATER INSTALLER TO MONITOR FOR HYPO/HYPERGLYCEMIA AND CONDUCT ROUTINE FOOT INSPECTIONS. RECORD PATIENT REPORTED BLOOD SUGAR LEVELS AND NOTIFY PHYSICIAN AND/OR THE RN CLINICAL LEAD SOLUTIONS ARCHITECT FOR PHYSICIAN NOTIFICATION IF BLOOD SUGAR LEVELS ARE OUTSIDE ORDERED PARAMETERS. TEACH PATIENT/CAREGIVER ON DAILY FOOT INSPECTIONS PT / OIL HEATER INSTALLER TO INSTRUCT PATIENT/CAREGIVER ON RISK FOR HOSPITALIZATION/EMERGENCY ROOM VISITS, TEACH SIGNS AND SYMPTOMS THAT PUT PATIENT AT RISK, WHEN TO NOTIFY NURSE/PHYSICIAN OF COMPLICATIONS/DECLINE, AND WHEN TO CALL 911. PT/OIL HEATER INSTALLER TO EDUCATE ON ARTHRITIS SELF-MANAGEMENT PT / OIL HEATER INSTALLER TO EDUCATE ON HEART FAILURE SELF-MANAGEMENT PT / OIL HEATER INSTALLER TO EDUCATE ON HYPERTENSION SELF-MANAGEMENT PT TO ASSESS / OIL HEATER INSTALLER TO MONITOR CARDIO/RESPIRATORY SYSTEM; AND NOTIFY THE PHYSICIAN AND/OR THE RN CLINICAL LEAD SOLUTIONS ARCHITECT FOR PHYSICIAN NOTIFICATION FOR EARLY SIGNS AND SYMPTOMS OF EXACERBATION OR DETERIORATION. PT / OIL HEATER INSTALLER TO EDUCATE ON ATRIAL FIBRILLATION SELF-MANAGEMENT. PT / OIL HEATER INSTALLER TO EDUCATE ON PNEUMONIA / ASPIRATION PNEUMONIA SELF-MANAGEMENT. PT/OIL HEATER INSTALLER TO IDENTIFY FALL RISK FACTORS; EDUCATE THE PATIENT/CAREGIVER ON WAYS TO REDUCE FALL RISK FACTORS AND ESTABLISH HOME EXERCISE PROGRAM TO MINIMIZE FALL RISK. MAY TEACH THE PATIENT FLOOR RECOVERY WHEN CLINICALLY APPROPRIATE] Future Scheduled Test AGENCY MAY PERFORM A RESUMPTION OF CARE VISIT FOLLOWING ANY HOSPITAL ADMISSION. OT TO EVALUATE, OBSERVE / ASSESS, AND MONITOR, METALLIC YARN SLITTING MACHINE OPERATOR TO OBSERVE AND MONITOR, PROVIDE SKILLED THERAPEUTIC INTERVENTION, ACTIVITY, EDUCATION, AND TRAINING TO ADDRESS SAFETY AND INDEPENDENCE OF ADLS AND FUNCTIONAL TRANSFERS IN HOME ENVIRONMENT. ACTIVITIES OF DAILY LIVING (OT/MARIANNE) THERAPEUTIC EXERCISE (OT/METALLIC YARN SLITTING MACHINE OPERATOR) ENERGY CONSERVATION/ACTIVITY DEMAND (OT/METALLIC YARN SLITTING MACHINE OPERATOR) OT/METALLIC YARN SLITTING MACHINE OPERATOR TO MONITOR AND EDUCATE ON OXYGEN SATURATION DURING ADLS/IADLS, NOTIFY PHYSICIAN AND/OR THE RN CLINICAL LEAD SOLUTIONS ARCHITECT FOR PHYSICIAN NOTIFICATION AND IF O2 SATS BELOW 90% AFTER 10 MIN OF REST. OT / METALLIC YARN SLITTING MACHINE OPERATOR TO IDENTIFY FALL RISK FACTORS; EDUCATE THE PATIENT/CAREGIVER ON WAYS TO REDUCE FALL RISK FACTORS AND ESTABLISH HOME EXERCISE PROGRAM TO MINIMIZE FALL RISK. MAY TEACH THE PATIENT FLOOR RECOVERY WHEN CLINICALLY APPROPRIATE. OT/METALLIC YARN SLITTING MACHINE OPERATOR TO EDUCATE ON HYPERTENSION SELF-MANAGEMENT OT/MARIANNE TO EDUCATE ON ATRIAL FIBRILLATION SELF-MANAGEMENT. [code = AGENCY MAY PERFORM A RESUMPTION OF CARE VISIT FOLLOWING ANY HOSPITAL ADMISSION. OT TO EVALUATE, OBSERVE / ASSESS, AND MONITOR, METALLIC YARN SLITTING MACHINE OPERATOR TO OBSERVE AND MONITOR, PROVIDE SKILLED THERAPEUTIC INTERVENTION, ACTIVITY, EDUCATION, AND TRAINING TO ADDRESS SAFETY AND INDEPENDENCE OF ADLS AND FUNCTIONAL TRANSFERS IN HOME ENVIRONMENT. ACTIVITIES OF DAILY LIVING (OT/MARIANNE) THERAPEUTIC EXERCISE (OT/METALLIC YARN SLITTING MACHINE OPERATOR) ENERGY CONSERVATION/ACTIVITY DEMAND (OT/MARIANNE) OT/METALLIC YARN SLITTING MACHINE OPERATOR TO MONITOR AND EDUCATE ON OXYGEN SATURATION DURING ADLS/IADLS, NOTIFY PHYSICIAN AND/OR THE RN CLINICAL LEAD SOLUTIONS ARCHITECT FOR PHYSICIAN NOTIFICATION AND IF O2 SATS BELOW 90% AFTER 10 MIN OF REST. OT / MARIANNE TO IDENTIFY FALL RISK FACTORS; EDUCATE THE PATIENT/CAREGIVER ON WAYS TO REDUCE FALL RISK FACTORS AND ESTABLISH HOME EXERCISE PROGRAM TO MINIMIZE FALL RISK. MAY TEACH THE PATIENT FLOOR RECOVERY WHEN CLINICALLY APPROPRIATE. OT/METALLIC YARN SLITTING MACHINE OPERATOR TO EDUCATE ON HYPERTENSION SELF-MANAGEMENT [...] OF SKIN INTEGRITY ISSUES FROM [facility] TO ME WITHIN 2 WKS. PT STG: PATIENT WILL [...] TO SAFELY NEGOTIATE STAIRS FROM [facility] TO ME WITH 2 STEPS W/O HANDRAIL VIA FRONT [...] Outpatient NEW ADMISSION FR[facility]OK[facility] [id number]
--- OUTSIDE RECORDS SUMMARY | 2025-04-06 18:00 | XMS_ITS | Clinical Summary ---
Author Organization Unknown Care Team Providers Care Acid Regenerator Name Role Phone DIGNA ARIEL, ESTRELLA Unavailable Unava dinora STOKES RN, FRANKIE Unavailable Unavailabl e KARI PT, DIDI Unavailable Unavailable NAT NON PROFIT JOB TITLES, GAUDENCIO Unavailable Unavailabl e RADHA OT, ROLANDO Unavailable Unavailable JOANNE STEVEN, HATTIE Unavailable Unavailable Payers Payer Name Policy Type Policy Number Effective Date Expira tion Date MEDICARE.[facility] [id number] Problems Condition Name Condition Details Condition Category Status Onset Date Resolution Date Last Treatment Date Treating Clinician Comments 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 02-07 [...] PNEUMONIA (RECURRENT) Active 02-07 00:00: 00 COMPLIANCE COUNSEL (CURRENT) USE OF SYSTEMIC STEROIDS Active 02-07 [...] 80 mg tablet 02-07 00:00: 00 Yes [id number] CHOLESTEROL 1 tablet DAILY 1 tablet DAILY (route: oral) Med Classific ation: Cardiovas cular Therapy Agents digoxin 125 mcg (0.125 mg) tablet 02-07 00:00: 00 02-21 23:59 :00 No [id number] HEART RHYTHM 1 tablet DAILY 1 tablet DAILY (route: oral) Med Classific ation: Cardiovas cular Therapy Agents escitalopra m 10 mg tablet 02-07 00:00: 00 Yes [id number] MOOD 1 tablet DAILY 1 tablet DAILY (route: oral) Med Classific ation: Central Nervous System Agents ezetimibe 10 mg tablet 02-07 00:00: 00 Yes [id number] CHOLESTEROL 1 tablet DAILY 1 tablet DAILY (route: oral) Med Classific ation: Cardiovas cular Therapy Agents metoprolol succinate ER 25 mg tablet,exte nded release 24 hr 02-07 00:00: 00 02-21 23:59 :00 No [id number] BLOOD PRESSURE 0.5 tablet DAILY 0.5 tablet DAILY (route: oral) Med Classific ation: Cardiovas cular Therapy Agents pantoprazol e 40 mg tablet,joão yed release 02-07 00:00: 00 02-21 23:59 :00 No [id number] STOMACH ACID 1 tablet DAILY 1 tablet DAILY (route: oral) Med Classific ation: Gastroint estinal Therapy Agents prednisone 5 mg tablet 02-07 00:00: 00 Yes [id number] ADRENAL INSUFFICIEN CY 1 tablet DAILY 1 tablet DAILY (route: oral) Med Classific ation: Endocrine spironolact one 25 mg tablet 02-07 00:00: 00 Yes [id number] FLUID RETENTION 0.5 tablet DAILY 0.5 tablet DAILY (route: oral) Med Classific ation: Cardiovas cular Therapy Agents tamsulosin 0.4 mg capsule 02-07 00:00: 00 02-21 23:59 :00 No [id number] URINARY HEALTH 1 capsule DAILY 1 capsule DAILY (route: oral) Med Classific ation: Genitouri nary Therapy acetaminoph en 325 mg tablet 2024-05 00:00: 00 Yes [id number] PAIN 2 tablet 2 TIMES DAILY 2 tablet 2 TIMES DAILY (route: oral) Med Classific ation: Analgesic , Anti-infl ammatory or Antipyret ic aspirin 81 mg tablet 2024-05 00:00: 00 Yes [id number] ANTICOAGULA NT 1 tablet DAILY 1 tablet DAILY (route: oral) Med Classific ation: Hematolog ical Agents ipratropium 0.5 mg-albutero l 3 mg (2.5 mg base)/3 mL nebulizatio n soln 2024-05 00:00: 00 Yes [id number] COPD 3 mL EVERY 6 HOURS 3 mL EVERY 6 HOURS (route: inhalation ) Med Classific ation: Respirato ry Therapy Agents Lanoxin 62.5 mcg (0.0625 mg) tablet 2024-05 00:00: 00 Yes [id number] CHF 1 tablet DAILY 1 tablet DAILY (route: oral) Med Classific ation: Cardiovas cular Therapy Agents Lasix 20 mg tablet 2024-05 00:00: 00 Yes [id number] CHF 1 tablet DAILY 1 tablet DAILY (route: oral) Med Classific ation: Cardiovas cular Therapy Agents Toprol XL 25 mg tablet,exte nded release 2024-05 00:00: 00 Yes [id number] BP 25 mg DAILY 25 mg DAILY [...] SYSTEM MANAGEMENT; RN TO ASSESS AND TEACH, PRESS OPERATOR/RUBY DEVELOPER TO OBSERVE AND TEACH RELATED TO ALTERED RESPIRATORY STATUS TO MINIMIZE COMPLICATIONS AND REDUCE HOSPITALIZATION. [code = SN 1WK9 PT 1WK1 OT EFFECTIVE 02/10/2025K1 RESPIRATORY SYSTEM MANAGEMENT; RN TO ASSESS AND TEACH, PRESS OPERATOR/RUBY DEVELOPER TO OBSERVE AND TEACH RELATED TO ALTERED RESPIRATORY STATUS TO MINIMIZE COMPLICATIONS AND REDUCE HOSPITALIZATION.] Future Scheduled Test TRACHEOSTO MY CARE MANAGEMENT; RN/PRESS OPERATOR/RUBY DEVELOPER TO INSTRUCT PATIENT/CAREGIVER ON CARE AND MANAGEMENT OF TRACHEOSTOMY. RN/ PRESS OPERATOR/RUBY DEVELOPER TO PROVIDE SKILLED TEACHING ON TRACH COLLAR SUCTIONING PRN WITH 14 FR SUCTION CATHETER PER PATIENT TRACH CARE WITH INNER CANNULA: REMOVE INNER CANNULA, CLEANSE WITH NORMAL SALINE AND OR STERILE WATER AND REINSERT NON-DISPOSABLE CANNULA SIZE OF INNER CANNULA 5 BROOKS [code = TRACHEOSTOMY CARE MANAGEMENT; RN/PRESS OPERATOR/RUBY DEVELOPER TO INSTRUCT PATIENT/CAREGIVER ON CARE AND MANAGEMENT OF TRACHEOSTOMY. RN/ PRESS OPERATOR/RUBY DEVELOPER TO PROVIDE SKILLED TEACHING ON TRACH COLLAR SUCTIONING PRN WITH 14 FR SUCTION CATHETER PER PATIENT TRACH CARE WITH INNER CANNULA: REMOVE INNER CANNULA, CLEANSE WITH NORMAL SALINE AND OR STERILE WATER AND REINSERT NON-DISPOSABLE CANNULA SIZE OF INNER CANNULA 5 BROOKS] Future Scheduled Test FALL REDUC TION MANAGEMENT; RN TO ASSESS AND OBSERVE, PRESS OPERATOR/RUBY DEVELOPER TO OBSERVE FALL RISK FACTORS AND EDUCATE PATIENT/CAREGIVER ON STRATEGIES TO MINIMIZE THE RISK OF FALLING. [code = FALL REDUCTION MANAGEMENT; RN TO ASSESS AND OBSERVE, PRESS OPERATOR/RUBY DEVELOPER TO OBSERVE FALL RISK FACTORS AND EDUCATE PATIENT/CAREGIVER ON STRATEGIES TO MINIMIZE THE RISK OF FALLING.] Future Scheduled Test ANEMIA MAN AGEMENT; RN TO ASSESS AND TEACH, RUBY DEVELOPER/PRESS OPERATOR TO OBSERVE AND TEACH AND PROVIDE EDUCATION ON ANEMIA. [code = ANEMIA MANAGEMENT; RN TO ASSESS AND TEACH, RUBY DEVELOPER/PRESS OPERATOR TO OBSERVE AND TEACH AND PROVIDE EDUCATION ON ANEMIA.] Future Scheduled Test RN TO OBSE RVE, ASSESS, EVALUATE, AND DEVELOP AN INDIVIDUALIZED PLAN OF CARE. AGENCY MAY ACCEPT ORDERS FROM CONSULTING PHYSICIANS RN TO OBSERVE AND ASSESS, PRESS OPERATOR/RUBY DEVELOPER TO OBSERVE FOR RISK FOR FALLS AND INSTRUCT IN FALL PREVENTION, HOME SAFETY, MEDICATION MANAGEMENT, INFECTION PREVENTION, AND NUTRITION MANAGEMENT. RN/PRESS OPERATOR/RUBY DEVELOPER NURSE MAY PERFORM O2 SATURATION LEVEL ON ADMISSION AND PRN FOR RN TO ASSESS/PRESS OPERATOR TO OBSERVE PATIENT, WITH NOTIFICATION TO THE PHYSICIAN IF SATURATION IS 90% IN THE ABSENCE OF MORE SPECIFIC PARAMETERS FROM THE PHYSICIAN. AGENCY MAY PERFORM A RESUMPTION OF CARE VISIT FOLLOWING ANY HOSPITAL ADMISSION. RN/PRESS OPERATOR/RUBY DEVELOPER TO MONITOR CO-MORBID CONDITIONS LISTED ON THE PLAN OF CARE AND ANY NEW CONDITIONS THAT PRESENT THEMSELVES DURING THIS EPISODE TO IDENTIFY CHANGES AND INTERVENE TO MINIMIZE COMPLICATIONS. [code = RN TO OBSERVE, ASSESS, EVALUATE, AND DEVELOP AN INDIVIDUALIZED PLAN OF CARE. AGENCY MAY ACCEPT ORDERS FROM CONSULTING PHYSICIANS RN TO OBSERVE AND ASSESS, PRESS OPERATOR/RUBY DEVELOPER TO OBSERVE FOR RISK FOR FALLS AND INSTRUCT IN FALL PREVENTION, HOME SAFETY, MEDICATION MANAGEMENT, INFECTION PREVENTION, AND NUTRITION MANAGEMENT. RN/PRESS OPERATOR/RUBY DEVELOPER NURSE MAY PERFORM O2 SATURATION LEVEL ON ADMISSION AND PRN FOR RN TO ASSESS/PRESS OPERATOR TO OBSERVE PATIENT, WITH NOTIFICATION TO THE PHYSICIAN IF SATURATION IS 90% IN THE ABSENCE OF MORE SPECIFIC PARAMETERS FROM THE PHYSICIAN. AGENCY MAY PERFORM A RESUMPTION OF CARE VISIT FOLLOWING ANY HOSPITAL ADMISSION. RN/PRESS OPERATOR/RUBY DEVELOPER TO MONITOR CO-MORBID CONDITIONS LISTED ON THE PLAN OF CARE AND ANY NEW CONDITIONS THAT PRESENT THEMSELVES DURING THIS EPISODE TO IDENTIFY CHANGES AND INTERVENE TO MINIMIZE COMPLICATIONS.] Future Scheduled Test PAIN MANAG EMENT; RN TO ASSESS AND TEACH, RUBY DEVELOPER/PRESS OPERATOR TO OBSERVE AND TEACH AND PROVIDE EDUCATION ON PAIN MANAGEMENT TECHNIQUES. [code = PAIN MANAGEMENT; RN TO ASSESS AND TEACH, RUBY DEVELOPER/PRESS OPERATOR TO OBSERVE AND TEACH AND PROVIDE EDUCATION ON PAIN MANAGEMENT TECHNIQUES.] Future Scheduled Test RISK FOR H OSPITALIZATION; RN TO ASSESS/TEACH, RUBY DEVELOPER/PRESS OPERATOR TO OBSERVE/TEACH PATIENT/CAREGIVER ON RISK FOR HOSPITALIZATION/EMERGENCY ROOM VISITS, TEACH SIGNS AND SYMPTOMS THAT PUT PATIENT AT RISK, WHEN TO NOTIFY NURSE/PHYSICIAN OF COMPLICATIONS/DECLINE, AND WHEN TO CALL 911. [code = RISK FOR HOSPITALIZATION; RN TO ASSESS/TEACH, RUBY DEVELOPER/PRESS OPERATOR TO OBSERVE/TEACH PATIENT/CAREGIVER ON RISK FOR HOSPITALIZATION/EMERGENCY ROOM VISITS, TEACH SIGNS AND SYMPTOMS THAT PUT PATIENT AT RISK, WHEN TO NOTIFY NURSE/PHYSICIAN OF COMPLICATIONS/DECLINE, AND WHEN TO CALL 911.] Future Scheduled Test CARDIOVASC ULAR SYSTEM; RN TO ASSESS/TEACH, PRESS OPERATOR/RUBY DEVELOPER TO OBSERVE/TEACH RELATED TO ALTERED CARDIOVASCULAR STATUS TO MINIMIZE COMPLICATIONS AND REDUCE HOSPITALIZATION. [code = CARDIOVASCULAR SYSTEM; RN TO ASSESS/TEACH, PRESS OPERATOR/RUBY DEVELOPER TO OBSERVE/TEACH RELATED TO ALTERED CARDIOVASCULAR STATUS TO MINIMIZE COMPLICATIONS AND REDUCE HOSPITALIZATION.] Future Scheduled Test HYPERTENSI ON MANAGEMENT; RN TO ASSESS AND TEACH, PRESS OPERATOR/RUBY DEVELOPER TO OBSERVE AND TEACH WARNING SIGNS AND SYMPTOMS TO AVOID HOSPITALIZATION. [code = HYPERTENSION MANAGEMENT; RN TO ASSESS AND TEACH, PRESS OPERATOR/RUBY DEVELOPER TO OBSERVE AND TEACH WARNING SIGNS AND SYMPTOMS TO AVOID HOSPITALIZATION.] Future Scheduled Test HEART FAIL URE MONITORING RN/RUBY DEVELOPER/PRESS OPERATOR TO MONITOR PATIENT FOR SIGNS AND SYMPTOMS OF HEART FAILURE EXACERBATION, MONITOR FOR ADHERENCE WITH MEDICATION AND HEART FAILURE MANAGEMENT REGIMEN. [code = HEART FAILURE MONITORING RN/RUBY DEVELOPER/PRESS OPERATOR TO MONITOR PATIENT FOR SIGNS AND SYMPTOMS OF HEART FAILURE EXACERBATION, MONITOR FOR ADHERENCE WITH MEDICATION AND HEART FAILURE MANAGEMENT REGIMEN.] Future Scheduled Test DIABETES M ONITORING RN/RUBY DEVELOPER/PRESS OPERATOR TO MONITOR BLOOD SUGAR LOG FOR BLOOD SUGAR READINGS THAT ARE BEING CHECKED BY PATIENT, CAREGIVER NEEDED FOR SIGNS AND SYMPTOMS OF HYPER/HYPOGLYCEMIA. PATIENT THERAPEUTIC BLOOD SUGAR PARAMETERS ARE 70 - 300. REPORT BLOOD SUGARS OUT OF RANGE TO PHYSICIAN. NURSE MAY PERFORM FINGER STICK BLOOD GLUCOSE NEEDED FOR SIGNS AND SYMPTOMS OF HYPO AND HYPERGLYCEMIA. RN/RUBY DEVELOPER/PRESS OPERATOR TO MONITOR ADHERENCE OF PATIENT/CAREGIVER PERFORMING DIABETIC FOOT CARE AND MAY PERFORM DIABETIC FOOT CARE PRN. RN/RUBY DEVELOPER/PRESS OPERATOR TO MONITOR FOR ADHERENCE TO DIABETIC SELF-CARE AND MANAGEMENT INCLUDING MEDICATIONS. [code = DIABETES MONITORING RN/RUBY DEVELOPER/PRESS OPERATOR TO MONITOR BLOOD SUGAR LOG FOR BLOOD SUGAR READINGS THAT ARE BEING CHECKED BY PATIENT, CAREGIVER NEEDED FOR SIGNS AND SYMPTOMS OF HYPER/HYPOGLYCEMIA. PATIENT THERAPEUTIC BLOOD SUGAR PARAMETERS ARE 70 - 300. REPORT BLOOD SUGARS OUT OF RANGE TO PHYSICIAN. NURSE MAY PERFORM FINGER STICK BLOOD GLUCOSE NEEDED FOR SIGNS AND SYMPTOMS OF HYPO AND HYPERGLYCEMIA. RN/RUBY DEVELOPER/PRESS OPERATOR TO MONITOR ADHERENCE OF PATIENT/CAREGIVER PERFORMING DIABETIC FOOT CARE AND MAY PERFORM DIABETIC FOOT CARE PRN. RN/RUBY DEVELOPER/PRESS OPERATOR TO MONITOR FOR ADHERENCE TO DIABETIC SELF-CARE AND MANAGEMENT INCLUDING MEDICATIONS.] Future Scheduled Test HYPOTENSIO N MANAGEMENT; RN TO ASSESS AND TEACH/ PRESS OPERATOR /RUBY DEVELOPER TO OBSERVE AND TEACH WARNING SIGNS AND SYMPTOMS TO AVOID HOSPITALIZATION. [code = HYPOTENSION MANAGEMENT; RN TO ASSESS AND TEACH/ PRESS OPERATOR /RUBY DEVELOPER TO OBSERVE AND TEACH WARNING SIGNS AND SYMPTOMS TO AVOID HOSPITALIZATION.] Future Scheduled Test ARRHYTHMIA MANAGEMENT; RN TO ASSESS AND TEACH, PRESS OPERATOR/RUBY DEVELOPER TO OBSERVE AND TEACH WARNING SIGNS AND SYMPTOMS TO AVOID HOSPITALIZATION. [code = ARRHYTHMIA MANAGEMENT; RN TO ASSESS AND TEACH, PRESS OPERATOR/RUBY DEVELOPER TO OBSERVE AND TEACH WARNING SIGNS AND SYMPTOMS TO AVOID HOSPITALIZATION.] Future Scheduled Test MEDICATION MANAGEMENT; RN/PRESS OPERATOR/RUBY DEVELOPER TO REVIEW MEDICATIONS FOR INTERACTIONS, EFFECTIVENESS OF DRUG THERAPY, AND SIGNS/SYMPTOMS OF ADVERSE REACTIONS. MAY INSTRUCT AND REINFORCE MEDICATION TEACHING RELATED TO THE USE OF MEDICATIONS, DOSAGE, FREQUENCY, PURPOSE, SIDE EFFECTS, AND TO REPORT COMPLICATIONS. [code = MEDICATION MANAGEMENT; RN/PRESS OPERATOR/RUBY DEVELOPER TO REVIEW MEDICATIONS FOR INTERACTIONS, EFFECTIVENESS [...] EVAL UATE, OBSERVE / ASSESS, AND MONITOR, NON PROFIT JOB TITLES TO OBSERVE AND MONITOR, PROVIDE SKILLED THERAPEUTIC INTERVENTION, ACTIVITY, EDUCATION, AND TRAINING TO ADDRESS GEN. WEAKNESS, POOR OVERALL ACTIVITY TOLERANCE, AND FUNCTIONAL LIMITATIONS IMPACTING SAFETY AND INDEPENDENCE. BED MOBILITY (PT/NON PROFIT JOB TITLES) PT/NON PROFIT JOB TITLES TO PROVIDE GAIT TRAINING FOR IMPROVED MOBILITY AND /OR TO NORMALIZE GAIT PATTERN THERAPEUTIC EXERCISES AND ESTABLISHING A HOME EXERCISE PROGRAM (PT/NON PROFIT JOB TITLES) PT/NON PROFIT JOB TITLES TO PROVIDE STAIR TRAINING PT / NON PROFIT JOB TITLES TO MONITOR AND EDUCATE ON OXYGEN SATURATION DURING ADLS/IADLS, NOTIFY PHYSICIAN AND/OR THE RN CLINICAL VAMPER FOR PHYSICIAN NOTIFICATION AND IF O2 SATS BELOW PHYSICIAN ORDERED PARAMETERS AFTER 10 MIN OF REST PT / NON PROFIT JOB TITLES TO OBSERVE FOR EARLY SIGNS AND SYMPTOMS OF DEPRESSION OR DEPRESSION GETTING WORSE AND TO EDUCATE ON HOW TO FIND HELP. PT / NON PROFIT JOB TITLES MAY EDUCATE ON PAIN MANAGEMENT CLINICALLY INDICATED, INCLUDING NON-PHARMACOLOGICAL PAIN REDUCTION TECHNIQUES PT / NON PROFIT JOB TITLES TO MONITOR FOR HYPO/HYPERGLYCEMIA AND CONDUCT ROUTINE FOOT INSPECTIONS. RECORD PATIENT REPORTED BLOOD SUGAR LEVELS AND NOTIFY PHYSICIAN AND/OR THE RN CLINICAL VAMPER FOR PHYSICIAN NOTIFICATION IF BLOOD SUGAR LEVELS ARE OUTSIDE ORDERED PARAMETERS. TEACH PATIENT/CAREGIVER ON DAILY FOOT INSPECTIONS PT / NON PROFIT JOB TITLES TO INSTRUCT PATIENT/CAREGIVER ON RISK FOR HOSPITALIZATION/EMERGENCY ROOM VISITS, TEACH SIGNS AND SYMPTOMS THAT PUT PATIENT AT RISK, WHEN TO NOTIFY NURSE/PHYSICIAN OF COMPLICATIONS/DECLINE, AND WHEN TO CALL 911. PT/NON PROFIT JOB TITLES TO EDUCATE ON ARTHRITIS SELF-MANAGEMENT PT / NON PROFIT JOB TITLES TO EDUCATE ON HEART FAILURE SELF-MANAGEMENT PT / NON PROFIT JOB TITLES TO EDUCATE ON HYPERTENSION SELF-MANAGEMENT PT TO ASSESS / NON PROFIT JOB TITLES TO MONITOR CARDIO/RESPIRATORY SYSTEM; AND NOTIFY THE PHYSICIAN AND/OR THE RN CLINICAL VAMPER FOR PHYSICIAN NOTIFICATION FOR EARLY SIGNS AND SYMPTOMS OF EXACERBATION OR DETERIORATION. PT / NON PROFIT JOB TITLES TO EDUCATE ON ATRIAL FIBRILLATION SELF-MANAGEMENT. PT / NON PROFIT JOB TITLES TO EDUCATE ON PNEUMONIA / ASPIRATION PNEUMONIA SELF-MANAGEMENT. PT/NON PROFIT JOB TITLES TO IDENTIFY FALL RISK FACTORS; EDUCATE THE PATIENT/CAREGIVER ON WAYS TO REDUCE FALL RISK FACTORS AND ESTABLISH HOME EXERCISE PROGRAM TO MINIMIZE FALL RISK. MAY TEACH THE PATIENT FLOOR RECOVERY WHEN CLINICALLY APPROPRIATE [code = PT TO EVALUATE, OBSERVE / ASSESS, AND MONITOR, NON PROFIT JOB TITLES TO OBSERVE AND MONITOR, PROVIDE SKILLED THERAPEUTIC INTERVENTION, ACTIVITY, EDUCATION, AND TRAINING TO ADDRESS GEN. WEAKNESS, POOR OVERALL ACTIVITY TOLERANCE, AND FUNCTIONAL LIMITATIONS IMPACTING SAFETY AND INDEPENDENCE. BED MOBILITY (PT/NON PROFIT JOB TITLES) PT/NON PROFIT JOB TITLES TO PROVIDE GAIT TRAINING FOR IMPROVED MOBILITY AND /OR TO NORMALIZE GAIT PATTERN THERAPEUTIC EXERCISES AND ESTABLISHING A HOME EXERCISE PROGRAM (PT/NON PROFIT JOB TITLES) PT/NON PROFIT JOB TITLES TO PROVIDE STAIR TRAINING PT / NON PROFIT JOB TITLES TO MONITOR AND EDUCATE ON OXYGEN SATURATION DURING ADLS/IADLS, NOTIFY PHYSICIAN AND/OR THE RN CLINICAL VAMPER FOR PHYSICIAN NOTIFICATION AND IF O2 SATS BELOW PHYSICIAN ORDERED PARAMETERS AFTER 10 MIN OF REST PT / NON PROFIT JOB TITLES TO OBSERVE FOR EARLY SIGNS AND SYMPTOMS OF DEPRESSION OR DEPRESSION GETTING WORSE AND TO EDUCATE ON HOW TO FIND HELP. PT / NON PROFIT JOB TITLES MAY EDUCATE ON PAIN MANAGEMENT CLINICALLY INDICATED, INCLUDING NON-PHARMACOLOGICAL PAIN REDUCTION TECHNIQUES PT / NON PROFIT JOB TITLES TO MONITOR FOR HYPO/HYPERGLYCEMIA AND CONDUCT ROUTINE FOOT INSPECTIONS. RECORD PATIENT REPORTED BLOOD SUGAR LEVELS AND NOTIFY PHYSICIAN AND/OR THE RN CLINICAL VAMPER FOR PHYSICIAN NOTIFICATION IF BLOOD SUGAR LEVELS ARE OUTSIDE ORDERED PARAMETERS. TEACH PATIENT/CAREGIVER ON DAILY FOOT INSPECTIONS PT / NON PROFIT JOB TITLES TO INSTRUCT PATIENT/CAREGIVER ON RISK FOR HOSPITALIZATION/EMERGENCY ROOM VISITS, TEACH SIGNS AND SYMPTOMS THAT PUT PATIENT AT RISK, WHEN TO NOTIFY NURSE/PHYSICIAN OF COMPLICATIONS/DECLINE, AND WHEN TO CALL 911. PT/NON PROFIT JOB TITLES TO EDUCATE ON ARTHRITIS SELF-MANAGEMENT PT / NON PROFIT JOB TITLES TO EDUCATE ON HEART FAILURE SELF-MANAGEMENT PT / NON PROFIT JOB TITLES TO EDUCATE ON HYPERTENSION SELF-MANAGEMENT PT TO ASSESS / NON PROFIT JOB TITLES TO MONITOR CARDIO/RESPIRATORY SYSTEM; AND NOTIFY THE PHYSICIAN AND/OR THE RN CLINICAL VAMPER FOR PHYSICIAN NOTIFICATION FOR EARLY SIGNS AND SYMPTOMS OF EXACERBATION OR DETERIORATION. PT / NON PROFIT JOB TITLES TO EDUCATE ON ATRIAL FIBRILLATION SELF-MANAGEMENT. PT / NON PROFIT JOB TITLES TO EDUCATE ON PNEUMONIA / ASPIRATION PNEUMONIA SELF-MANAGEMENT. PT/NON PROFIT JOB TITLES TO IDENTIFY FALL RISK FACTORS; EDUCATE THE PATIENT/CAREGIVER ON WAYS TO REDUCE FALL RISK FACTORS AND ESTABLISH HOME EXERCISE PROGRAM TO MINIMIZE FALL RISK. MAY TEACH THE PATIENT FLOOR RECOVERY WHEN CLINICALLY APPROPRIATE] Future Scheduled Test AGENCY MAY PERFORM A RESUMPTION OF CARE VISIT FOLLOWING ANY HOSPITAL ADMISSION. OT TO EVALUATE, OBSERVE / ASSESS, AND MONITOR, PHYSICIAN PRIMARY CARE SPORTS MEDICINE TO OBSERVE AND MONITOR, PROVIDE SKILLED THERAPEUTIC INTERVENTION, ACTIVITY, EDUCATION, AND TRAINING TO ADDRESS SAFETY AND INDEPENDENCE OF ADLS AND FUNCTIONAL TRANSFERS IN HOME ENVIRONMENT. ACTIVITIES OF DAILY LIVING (OT/MARIANNE) THERAPEUTIC EXERCISE (OT/PHYSICIAN PRIMARY CARE SPORTS MEDICINE) ENERGY CONSERVATION/ACTIVITY DEMAND (OT/PHYSICIAN PRIMARY CARE SPORTS MEDICINE) OT/PHYSICIAN PRIMARY CARE SPORTS MEDICINE TO MONITOR AND EDUCATE ON OXYGEN SATURATION DURING ADLS/IADLS, NOTIFY PHYSICIAN AND/OR THE RN CLINICAL VAMPER FOR PHYSICIAN NOTIFICATION AND IF O2 SATS BELOW 90% AFTER 10 MIN OF REST. OT / PHYSICIAN PRIMARY CARE SPORTS MEDICINE TO IDENTIFY FALL RISK FACTORS; EDUCATE THE PATIENT/CAREGIVER ON WAYS TO REDUCE FALL RISK FACTORS AND ESTABLISH HOME EXERCISE PROGRAM TO MINIMIZE FALL RISK. MAY TEACH THE PATIENT FLOOR RECOVERY WHEN CLINICALLY APPROPRIATE. OT/PHYSICIAN PRIMARY CARE SPORTS MEDICINE TO EDUCATE ON HYPERTENSION SELF-MANAGEMENT OT/MARIANNE TO EDUCATE ON ATRIAL FIBRILLATION SELF-MANAGEMENT. [code = AGENCY MAY PERFORM A RESUMPTION OF CARE VISIT FOLLOWING ANY HOSPITAL ADMISSION. OT TO EVALUATE, OBSERVE / ASSESS, AND MONITOR, PHYSICIAN PRIMARY CARE SPORTS MEDICINE TO OBSERVE AND MONITOR, PROVIDE SKILLED THERAPEUTIC INTERVENTION, ACTIVITY, EDUCATION, AND TRAINING TO ADDRESS SAFETY AND INDEPENDENCE OF ADLS AND FUNCTIONAL TRANSFERS IN HOME ENVIRONMENT. ACTIVITIES OF DAILY LIVING (OT/MARIANNE) THERAPEUTIC EXERCISE (OT/PHYSICIAN PRIMARY CARE SPORTS MEDICINE) ENERGY CONSERVATION/ACTIVITY DEMAND (OT/MARIANNE) OT/PHYSICIAN PRIMARY CARE SPORTS MEDICINE TO MONITOR AND EDUCATE ON OXYGEN SATURATION DURING ADLS/IADLS, NOTIFY PHYSICIAN AND/OR THE RN CLINICAL VAMPER FOR PHYSICIAN NOTIFICATION AND IF O2 SATS BELOW 90% AFTER 10 MIN OF REST. OT / MARIANNE TO IDENTIFY FALL RISK FACTORS; EDUCATE THE PATIENT/CAREGIVER ON WAYS TO REDUCE FALL RISK FACTORS AND ESTABLISH HOME EXERCISE PROGRAM TO MINIMIZE FALL RISK. MAY TEACH THE PATIENT FLOOR RECOVERY WHEN CLINICALLY APPROPRIATE. OT/PHYSICIAN PRIMARY CARE SPORTS MEDICINE TO EDUCATE ON HYPERTENSION SELF-MANAGEMENT OT/MARIANNE TO [...] End Date/Time Encounter Type Admission Type Attending [facility] Care Department Encounter ID Discharge Date Discharge Status Discharge Condition Discharge Reason Percent Goals Met 2025-02-07 00:00:00 2025-04-07 00:00:00 Outpatient NEW ADMISSION [facility] [id number]
--- OUTSIDE RECORDS SUMMARY | 2025-04-06 18:00 | XMS_ITS | Clinical Summary ---
Author Organization Unknown Care Team Providers Care Manager Mental Health Name Role Phone DIGNA ARIEL, ESTRELLA Unavailable Unava dinora STOKES RN, FRANKIE Unavailable Unavailabl e KARI PT, DIDI Unavailable Unavailable NAT SALES PRODUCER, GAUDENCIO Unavailable Unavailabl e RADHA OT, ROLANDO Unavailable Unavailable JOANNE STEVEN, HATTIE Unavailable Unavailable Payers Payer Name Policy Type Policy Number Effective Date Expira tion Date MEDICARE.[facility] [id number] Problems Condition Name Condition Details Condition Category [...] OF PNEUMONIA (RECURRENT) Active 02-07 00:00: 00 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 (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) USE OF SYSTEMIC STEROIDS Active 02-07 [...] 80 mg tablet 02-07 00:00: 00 Yes [id number] CHOLESTEROL 1 tablet DAILY 1 tablet DAILY (route: oral) Med Classific ation: Cardiovas cular Therapy Agents digoxin 125 mcg (0.125 mg) tablet 02-07 00:00: 00 02-21 23:59 :00 No [id number] HEART RHYTHM 1 tablet DAILY 1 tablet DAILY (route: oral) Med Classific ation: Cardiovas cular Therapy Agents escitalopra m 10 mg tablet 02-07 00:00: 00 Yes [id number] MOOD 1 tablet DAILY 1 tablet DAILY (route: oral) Med Classific ation: Central Nervous System Agents ezetimibe 10 mg tablet 02-07 00:00: 00 Yes [id number] CHOLESTEROL 1 tablet DAILY 1 tablet DAILY (route: oral) Med Classific ation: Cardiovas cular Therapy Agents metoprolol succinate ER 25 mg tablet,exte nded release 24 hr 02-07 00:00: 00 02-21 23:59 :00 No [id number] BLOOD PRESSURE 0.5 tablet DAILY 0.5 tablet DAILY (route: oral) Med Classific ation: Cardiovas cular Therapy Agents pantoprazol e 40 mg tablet,joão yed release 02-07 00:00: 00 02-21 23:59 :00 No [id number] STOMACH ACID 1 tablet DAILY 1 tablet DAILY (route: oral) Med Classific ation: Gastroint estinal Therapy Agents prednisone 5 mg tablet 02-07 00:00: 00 Yes [id number] ADRENAL INSUFFICIEN CY 1 tablet DAILY 1 tablet DAILY (route: oral) Med Classific ation: Endocrine spironolact one 25 mg tablet 02-07 00:00: 00 Yes [id number] FLUID RETENTION 0.5 tablet DAILY 0.5 tablet DAILY (route: oral) Med Classific ation: Cardiovas cular Therapy Agents tamsulosin 0.4 mg capsule 02-07 00:00: 00 02-21 23:59 :00 No [id number] URINARY HEALTH 1 capsule DAILY 1 capsule DAILY (route: oral) Med Classific ation: Genitouri nary Therapy acetaminoph en 325 mg tablet 2024-05 00:00: 00 Yes [id number] PAIN 2 tablet 2 TIMES DAILY 2 tablet 2 TIMES DAILY (route: oral) Med Classific ation: Analgesic , Anti-infl ammatory or Antipyret ic aspirin 81 mg tablet 2024-05 00:00: 00 Yes [id number] ANTICOAGULA NT 1 tablet DAILY 1 tablet DAILY (route: oral) Med Classific ation: Hematolog ical Agents ipratropium 0.5 mg-albutero l 3 mg (2.5 mg base)/3 mL nebulizatio n soln 2024-05 00:00: 00 Yes [id number] COPD 3 mL EVERY 6 HOURS 3 mL EVERY 6 HOURS (route: inhalation ) Med Classific ation: Respirato ry Therapy Agents Lanoxin 62.5 mcg (0.0625 mg) tablet 2024-05 00:00: 00 Yes [id number] CHF 1 tablet DAILY 1 tablet DAILY (route: oral) Med Classific ation: Cardiovas cular Therapy Agents Lasix 20 mg tablet 2024-05 00:00: 00 Yes [id number] CHF 1 tablet DAILY 1 tablet DAILY (route: oral) Med Classific ation: Cardiovas cular Therapy Agents Toprol XL 25 mg tablet,exte nded release 2024-05 00:00: 00 Yes [id number] BP 25 mg DAILY 25 mg DAILY [...] SYSTEM MANAGEMENT; RN TO ASSESS AND TEACH, INVESTIGATIVE ASSISTANT/RAMPMAN TO OBSERVE AND TEACH RELATED TO ALTERED RESPIRATORY STATUS TO MINIMIZE COMPLICATIONS AND REDUCE HOSPITALIZATION. [code = SN 1WK9 PT 1WK1 OT EFFECTIVE 02/10/2025K1 RESPIRATORY SYSTEM MANAGEMENT; RN TO ASSESS AND TEACH, INVESTIGATIVE ASSISTANT/RAMPMAN TO OBSERVE AND TEACH RELATED TO ALTERED RESPIRATORY STATUS TO MINIMIZE COMPLICATIONS AND REDUCE HOSPITALIZATION.] Future Scheduled Test TRACHEOSTO MY CARE MANAGEMENT; RN/INVESTIGATIVE ASSISTANT/RAMPMAN TO INSTRUCT PATIENT/CAREGIVER ON CARE AND MANAGEMENT OF TRACHEOSTOMY. RN/ INVESTIGATIVE ASSISTANT/RAMPMAN TO PROVIDE SKILLED TEACHING ON TRACH COLLAR SUCTIONING PRN WITH 14 FR SUCTION CATHETER PER PATIENT TRACH CARE WITH INNER CANNULA: REMOVE INNER CANNULA, CLEANSE WITH NORMAL SALINE AND OR STERILE WATER AND REINSERT NON-DISPOSABLE CANNULA SIZE OF INNER CANNULA 5 BROOKS [code = TRACHEOSTOMY CARE MANAGEMENT; RN/INVESTIGATIVE ASSISTANT/RAMPMAN TO INSTRUCT PATIENT/CAREGIVER ON CARE AND MANAGEMENT OF TRACHEOSTOMY. RN/ INVESTIGATIVE ASSISTANT/RAMPMAN TO PROVIDE SKILLED TEACHING ON TRACH COLLAR SUCTIONING PRN WITH 14 FR SUCTION CATHETER PER PATIENT TRACH CARE WITH INNER CANNULA: REMOVE INNER CANNULA, CLEANSE WITH NORMAL SALINE AND OR STERILE WATER AND REINSERT NON-DISPOSABLE CANNULA SIZE OF INNER CANNULA 5 BROOKS] Future Scheduled Test FALL REDUC TION MANAGEMENT; RN TO ASSESS AND OBSERVE, INVESTIGATIVE ASSISTANT/RAMPMAN TO OBSERVE FALL RISK FACTORS AND EDUCATE PATIENT/CAREGIVER ON STRATEGIES TO MINIMIZE THE RISK OF FALLING. [code = FALL REDUCTION MANAGEMENT; RN TO ASSESS AND OBSERVE, INVESTIGATIVE ASSISTANT/RAMPMAN TO OBSERVE FALL RISK FACTORS AND EDUCATE PATIENT/CAREGIVER ON STRATEGIES TO MINIMIZE THE RISK OF FALLING.] Future Scheduled Test ANEMIA MAN AGEMENT; RN TO ASSESS AND TEACH, RAMPMAN/INVESTIGATIVE ASSISTANT TO OBSERVE AND TEACH AND PROVIDE EDUCATION ON ANEMIA. [code = ANEMIA MANAGEMENT; RN TO ASSESS AND TEACH, RAMPMAN/INVESTIGATIVE ASSISTANT TO OBSERVE AND TEACH AND PROVIDE EDUCATION ON ANEMIA.] Future Scheduled Test RN TO OBSE RVE, ASSESS, EVALUATE, AND DEVELOP AN INDIVIDUALIZED PLAN OF CARE. AGENCY MAY ACCEPT ORDERS FROM CONSULTING PHYSICIANS RN TO OBSERVE AND ASSESS, INVESTIGATIVE ASSISTANT/RAMPMAN TO OBSERVE FOR RISK FOR FALLS AND INSTRUCT IN FALL PREVENTION, HOME SAFETY, MEDICATION MANAGEMENT, INFECTION PREVENTION, AND NUTRITION MANAGEMENT. RN/INVESTIGATIVE ASSISTANT/RAMPMAN NURSE MAY PERFORM O2 SATURATION LEVEL ON ADMISSION AND PRN FOR RN TO ASSESS/INVESTIGATIVE ASSISTANT TO OBSERVE PATIENT, WITH NOTIFICATION TO THE PHYSICIAN IF SATURATION IS 90% IN THE ABSENCE OF MORE SPECIFIC PARAMETERS FROM THE PHYSICIAN. AGENCY MAY PERFORM A RESUMPTION OF CARE VISIT FOLLOWING ANY HOSPITAL ADMISSION. RN/INVESTIGATIVE ASSISTANT/RAMPMAN TO MONITOR CO-MORBID CONDITIONS LISTED ON THE PLAN OF CARE AND ANY NEW CONDITIONS THAT PRESENT THEMSELVES DURING THIS EPISODE TO IDENTIFY CHANGES AND INTERVENE TO MINIMIZE COMPLICATIONS. [code = RN TO OBSERVE, ASSESS, EVALUATE, AND DEVELOP AN INDIVIDUALIZED PLAN OF CARE. AGENCY MAY ACCEPT ORDERS FROM CONSULTING PHYSICIANS RN TO OBSERVE AND ASSESS, INVESTIGATIVE ASSISTANT/RAMPMAN TO OBSERVE FOR RISK FOR FALLS AND INSTRUCT IN FALL PREVENTION, HOME SAFETY, MEDICATION MANAGEMENT, INFECTION PREVENTION, AND NUTRITION MANAGEMENT. RN/INVESTIGATIVE ASSISTANT/RAMPMAN NURSE MAY PERFORM O2 SATURATION LEVEL ON ADMISSION AND PRN FOR RN TO ASSESS/INVESTIGATIVE ASSISTANT TO OBSERVE PATIENT, WITH NOTIFICATION TO THE PHYSICIAN IF SATURATION IS 90% IN THE ABSENCE OF MORE SPECIFIC PARAMETERS FROM THE PHYSICIAN. AGENCY MAY PERFORM A RESUMPTION OF CARE VISIT FOLLOWING ANY HOSPITAL ADMISSION. RN/INVESTIGATIVE ASSISTANT/RAMPMAN TO MONITOR CO-MORBID CONDITIONS LISTED ON THE PLAN OF CARE AND ANY NEW CONDITIONS THAT PRESENT THEMSELVES DURING THIS EPISODE TO IDENTIFY CHANGES AND INTERVENE TO MINIMIZE COMPLICATIONS.] Future Scheduled Test PAIN MANAG EMENT; RN TO ASSESS AND TEACH, RAMPMAN/INVESTIGATIVE ASSISTANT TO OBSERVE AND TEACH AND PROVIDE EDUCATION ON PAIN MANAGEMENT TECHNIQUES. [code = PAIN MANAGEMENT; RN TO ASSESS AND TEACH, RAMPMAN/INVESTIGATIVE ASSISTANT TO OBSERVE AND TEACH AND PROVIDE EDUCATION ON PAIN MANAGEMENT TECHNIQUES.] Future Scheduled Test RISK FOR H OSPITALIZATION; RN TO ASSESS/TEACH, RAMPMAN/INVESTIGATIVE ASSISTANT TO OBSERVE/TEACH PATIENT/CAREGIVER ON RISK FOR HOSPITALIZATION/EMERGENCY ROOM VISITS, TEACH SIGNS AND SYMPTOMS THAT PUT PATIENT AT RISK, WHEN TO NOTIFY NURSE/PHYSICIAN OF COMPLICATIONS/DECLINE, AND WHEN TO CALL 911. [code = RISK FOR HOSPITALIZATION; RN TO ASSESS/TEACH, RAMPMAN/INVESTIGATIVE ASSISTANT TO OBSERVE/TEACH PATIENT/CAREGIVER ON RISK FOR HOSPITALIZATION/EMERGENCY ROOM VISITS, TEACH SIGNS AND SYMPTOMS THAT PUT PATIENT AT RISK, WHEN TO NOTIFY NURSE/PHYSICIAN OF COMPLICATIONS/DECLINE, AND WHEN TO CALL 911.] Future Scheduled Test CARDIOVASC ULAR SYSTEM; RN TO ASSESS/TEACH, INVESTIGATIVE ASSISTANT/RAMPMAN TO OBSERVE/TEACH RELATED TO ALTERED CARDIOVASCULAR STATUS TO MINIMIZE COMPLICATIONS AND REDUCE HOSPITALIZATION. [code = CARDIOVASCULAR SYSTEM; RN TO ASSESS/TEACH, INVESTIGATIVE ASSISTANT/RAMPMAN TO OBSERVE/TEACH RELATED TO ALTERED CARDIOVASCULAR STATUS TO MINIMIZE COMPLICATIONS AND REDUCE HOSPITALIZATION.] Future Scheduled Test HYPERTENSI ON MANAGEMENT; RN TO ASSESS AND TEACH, INVESTIGATIVE ASSISTANT/RAMPMAN TO OBSERVE AND TEACH WARNING SIGNS AND SYMPTOMS TO AVOID HOSPITALIZATION. [code = HYPERTENSION MANAGEMENT; RN TO ASSESS AND TEACH, INVESTIGATIVE ASSISTANT/RAMPMAN TO OBSERVE AND TEACH WARNING SIGNS AND SYMPTOMS TO AVOID HOSPITALIZATION.] Future Scheduled Test HEART FAIL URE MONITORING RN/RAMPMAN/INVESTIGATIVE ASSISTANT TO MONITOR PATIENT FOR SIGNS AND SYMPTOMS OF HEART FAILURE EXACERBATION, MONITOR FOR ADHERENCE WITH MEDICATION AND HEART FAILURE MANAGEMENT REGIMEN. [code = HEART FAILURE MONITORING RN/RAMPMAN/INVESTIGATIVE ASSISTANT TO MONITOR PATIENT FOR SIGNS AND SYMPTOMS OF HEART FAILURE EXACERBATION, MONITOR FOR ADHERENCE WITH MEDICATION AND HEART FAILURE MANAGEMENT REGIMEN.] Future Scheduled Test DIABETES M ONITORING RN/RAMPMAN/INVESTIGATIVE ASSISTANT TO MONITOR BLOOD SUGAR LOG FOR BLOOD SUGAR READINGS THAT ARE BEING CHECKED BY PATIENT, CAREGIVER NEEDED FOR SIGNS AND SYMPTOMS OF HYPER/HYPOGLYCEMIA. PATIENT THERAPEUTIC BLOOD SUGAR PARAMETERS ARE 70 - 300. REPORT BLOOD SUGARS OUT OF RANGE TO PHYSICIAN. NURSE MAY PERFORM FINGER STICK BLOOD GLUCOSE NEEDED FOR SIGNS AND SYMPTOMS OF HYPO AND HYPERGLYCEMIA. RN/RAMPMAN/INVESTIGATIVE ASSISTANT TO MONITOR ADHERENCE OF PATIENT/CAREGIVER PERFORMING DIABETIC FOOT CARE AND MAY PERFORM DIABETIC FOOT CARE PRN. RN/RAMPMAN/INVESTIGATIVE ASSISTANT TO MONITOR FOR ADHERENCE TO DIABETIC SELF-CARE AND MANAGEMENT INCLUDING MEDICATIONS. [code = DIABETES MONITORING RN/RAMPMAN/INVESTIGATIVE ASSISTANT TO MONITOR BLOOD SUGAR LOG FOR BLOOD SUGAR READINGS THAT ARE BEING CHECKED BY PATIENT, CAREGIVER NEEDED FOR SIGNS AND SYMPTOMS OF HYPER/HYPOGLYCEMIA. PATIENT THERAPEUTIC BLOOD SUGAR PARAMETERS ARE 70 - 300. REPORT BLOOD SUGARS OUT OF RANGE TO PHYSICIAN. NURSE MAY PERFORM FINGER STICK BLOOD GLUCOSE NEEDED FOR SIGNS AND SYMPTOMS OF HYPO AND HYPERGLYCEMIA. RN/RAMPMAN/INVESTIGATIVE ASSISTANT TO MONITOR ADHERENCE OF PATIENT/CAREGIVER PERFORMING DIABETIC FOOT CARE AND MAY PERFORM DIABETIC FOOT CARE PRN. RN/RAMPMAN/INVESTIGATIVE ASSISTANT TO MONITOR FOR ADHERENCE TO DIABETIC SELF-CARE AND MANAGEMENT INCLUDING MEDICATIONS.] Future Scheduled Test HYPOTENSIO N MANAGEMENT; RN TO ASSESS AND TEACH/ INVESTIGATIVE ASSISTANT /RAMPMAN TO OBSERVE AND TEACH WARNING SIGNS AND SYMPTOMS TO AVOID HOSPITALIZATION. [code = HYPOTENSION MANAGEMENT; RN TO ASSESS AND TEACH/ INVESTIGATIVE ASSISTANT /RAMPMAN TO OBSERVE AND TEACH WARNING SIGNS AND SYMPTOMS TO AVOID HOSPITALIZATION.] Future Scheduled Test ARRHYTHMIA MANAGEMENT; RN TO ASSESS AND TEACH, INVESTIGATIVE ASSISTANT/RAMPMAN TO OBSERVE AND TEACH WARNING SIGNS AND SYMPTOMS TO AVOID HOSPITALIZATION. [code = ARRHYTHMIA MANAGEMENT; RN TO ASSESS AND TEACH, INVESTIGATIVE ASSISTANT/RAMPMAN TO OBSERVE AND TEACH WARNING SIGNS AND SYMPTOMS TO AVOID HOSPITALIZATION.] Future Scheduled Test MEDICATION MANAGEMENT; RN/INVESTIGATIVE ASSISTANT/RAMPMAN TO REVIEW MEDICATIONS FOR INTERACTIONS, EFFECTIVENESS OF DRUG THERAPY, AND SIGNS/SYMPTOMS OF ADVERSE REACTIONS. MAY INSTRUCT AND REINFORCE MEDICATION TEACHING RELATED TO THE USE OF MEDICATIONS, DOSAGE, FREQUENCY, PURPOSE, SIDE EFFECTS, AND TO REPORT COMPLICATIONS. [code = MEDICATION MANAGEMENT; RN/INVESTIGATIVE ASSISTANT/RAMPMAN TO REVIEW MEDICATIONS FOR INTERACTIONS, EFFECTIVENESS OF [...] UATE, OBSERVE / ASSESS, AND MONITOR, SALES PRODUCER TO OBSERVE AND MONITOR, PROVIDE SKILLED THERAPEUTIC INTERVENTION, ACTIVITY, EDUCATION, AND TRAINING TO ADDRESS GEN. WEAKNESS, POOR OVERALL ACTIVITY TOLERANCE, AND FUNCTIONAL LIMITATIONS IMPACTING SAFETY AND INDEPENDENCE. BED MOBILITY (PT/SALES PRODUCER) PT/SALES PRODUCER TO PROVIDE GAIT TRAINING FOR IMPROVED MOBILITY AND /OR TO NORMALIZE GAIT PATTERN THERAPEUTIC EXERCISES AND ESTABLISHING A HOME EXERCISE PROGRAM (PT/SALES PRODUCER) PT/SALES PRODUCER TO PROVIDE STAIR TRAINING PT / SALES PRODUCER TO MONITOR AND EDUCATE ON OXYGEN SATURATION DURING ADLS/IADLS, NOTIFY PHYSICIAN AND/OR THE RN CLINICAL PREPRESS MANAGER FOR PHYSICIAN NOTIFICATION AND IF O2 SATS BELOW PHYSICIAN ORDERED PARAMETERS AFTER 10 MIN OF REST PT / SALES PRODUCER TO OBSERVE FOR EARLY SIGNS AND SYMPTOMS OF DEPRESSION OR DEPRESSION GETTING WORSE AND TO EDUCATE ON HOW TO FIND HELP. PT / SALES PRODUCER MAY EDUCATE ON PAIN MANAGEMENT CLINICALLY INDICATED, INCLUDING NON-PHARMACOLOGICAL PAIN REDUCTION TECHNIQUES PT / SALES PRODUCER TO MONITOR FOR HYPO/HYPERGLYCEMIA AND CONDUCT ROUTINE FOOT INSPECTIONS. RECORD PATIENT REPORTED BLOOD SUGAR LEVELS AND NOTIFY PHYSICIAN AND/OR THE RN CLINICAL PREPRESS MANAGER FOR PHYSICIAN NOTIFICATION IF BLOOD SUGAR LEVELS ARE OUTSIDE ORDERED PARAMETERS. TEACH PATIENT/CAREGIVER ON DAILY FOOT INSPECTIONS PT / SALES PRODUCER TO INSTRUCT PATIENT/CAREGIVER ON RISK FOR HOSPITALIZATION/EMERGENCY ROOM VISITS, TEACH SIGNS AND SYMPTOMS THAT PUT PATIENT AT RISK, WHEN TO NOTIFY NURSE/PHYSICIAN OF COMPLICATIONS/DECLINE, AND WHEN TO CALL 911. PT/SALES PRODUCER TO EDUCATE ON ARTHRITIS SELF-MANAGEMENT PT / SALES PRODUCER TO EDUCATE ON HEART FAILURE SELF-MANAGEMENT PT / SALES PRODUCER TO EDUCATE ON HYPERTENSION SELF-MANAGEMENT PT TO ASSESS / SALES PRODUCER TO MONITOR CARDIO/RESPIRATORY SYSTEM; AND NOTIFY THE PHYSICIAN AND/OR THE RN CLINICAL PREPRESS MANAGER FOR PHYSICIAN NOTIFICATION FOR EARLY SIGNS AND SYMPTOMS OF EXACERBATION OR DETERIORATION. PT / SALES PRODUCER TO EDUCATE ON ATRIAL FIBRILLATION SELF-MANAGEMENT. PT / SALES PRODUCER TO EDUCATE ON PNEUMONIA / ASPIRATION PNEUMONIA SELF-MANAGEMENT. PT/SALES PRODUCER TO IDENTIFY FALL RISK FACTORS; EDUCATE THE PATIENT/CAREGIVER ON WAYS TO REDUCE FALL RISK FACTORS AND ESTABLISH HOME EXERCISE PROGRAM TO MINIMIZE FALL RISK. MAY TEACH THE PATIENT FLOOR RECOVERY WHEN CLINICALLY APPROPRIATE [code = PT TO EVALUATE, OBSERVE / ASSESS, AND MONITOR, SALES PRODUCER TO OBSERVE AND MONITOR, PROVIDE SKILLED THERAPEUTIC INTERVENTION, ACTIVITY, EDUCATION, AND TRAINING TO ADDRESS GEN. WEAKNESS, POOR OVERALL ACTIVITY TOLERANCE, AND FUNCTIONAL LIMITATIONS IMPACTING SAFETY AND INDEPENDENCE. BED MOBILITY (PT/SALES PRODUCER) PT/SALES PRODUCER TO PROVIDE GAIT TRAINING FOR IMPROVED MOBILITY AND /OR TO NORMALIZE GAIT PATTERN THERAPEUTIC EXERCISES AND ESTABLISHING A HOME EXERCISE PROGRAM (PT/SALES PRODUCER) PT/SALES PRODUCER TO PROVIDE STAIR TRAINING PT / SALES PRODUCER TO MONITOR AND EDUCATE ON OXYGEN SATURATION DURING ADLS/IADLS, NOTIFY PHYSICIAN AND/OR THE RN CLINICAL PREPRESS MANAGER FOR PHYSICIAN NOTIFICATION AND IF O2 SATS BELOW PHYSICIAN ORDERED PARAMETERS AFTER 10 MIN OF REST PT / SALES PRODUCER TO OBSERVE FOR EARLY SIGNS AND SYMPTOMS OF DEPRESSION OR DEPRESSION GETTING WORSE AND TO EDUCATE ON HOW TO FIND HELP. PT / SALES PRODUCER MAY EDUCATE ON PAIN MANAGEMENT CLINICALLY INDICATED, INCLUDING NON-PHARMACOLOGICAL PAIN REDUCTION TECHNIQUES PT / SALES PRODUCER TO MONITOR FOR HYPO/HYPERGLYCEMIA AND CONDUCT ROUTINE FOOT INSPECTIONS. RECORD PATIENT REPORTED BLOOD SUGAR LEVELS AND NOTIFY PHYSICIAN AND/OR THE RN CLINICAL PREPRESS MANAGER FOR PHYSICIAN NOTIFICATION IF BLOOD SUGAR LEVELS ARE OUTSIDE ORDERED PARAMETERS. TEACH PATIENT/CAREGIVER ON DAILY FOOT INSPECTIONS PT / SALES PRODUCER TO INSTRUCT PATIENT/CAREGIVER ON RISK FOR HOSPITALIZATION/EMERGENCY ROOM VISITS, TEACH SIGNS AND SYMPTOMS THAT PUT PATIENT AT RISK, WHEN TO NOTIFY NURSE/PHYSICIAN OF COMPLICATIONS/DECLINE, AND WHEN TO CALL 911. PT/SALES PRODUCER TO EDUCATE ON ARTHRITIS SELF-MANAGEMENT PT / SALES PRODUCER TO EDUCATE ON HEART FAILURE SELF-MANAGEMENT PT / SALES PRODUCER TO EDUCATE ON HYPERTENSION SELF-MANAGEMENT PT TO ASSESS / SALES PRODUCER TO MONITOR CARDIO/RESPIRATORY SYSTEM; AND NOTIFY THE PHYSICIAN AND/OR THE RN CLINICAL PREPRESS MANAGER FOR PHYSICIAN NOTIFICATION FOR EARLY SIGNS AND SYMPTOMS OF EXACERBATION OR DETERIORATION. PT / SALES PRODUCER TO EDUCATE ON ATRIAL FIBRILLATION SELF-MANAGEMENT. PT / SALES PRODUCER TO EDUCATE ON PNEUMONIA / ASPIRATION PNEUMONIA SELF-MANAGEMENT. PT/SALES PRODUCER TO IDENTIFY FALL RISK FACTORS; EDUCATE THE PATIENT/CAREGIVER ON WAYS TO REDUCE FALL RISK FACTORS AND ESTABLISH HOME EXERCISE PROGRAM TO MINIMIZE FALL RISK. MAY TEACH THE PATIENT FLOOR RECOVERY WHEN CLINICALLY APPROPRIATE] Future Scheduled Test AGENCY MAY PERFORM A RESUMPTION OF CARE VISIT FOLLOWING ANY HOSPITAL ADMISSION. OT TO EVALUATE, OBSERVE / ASSESS, AND MONITOR, TRAVELER CHANGER TO OBSERVE AND MONITOR, PROVIDE SKILLED THERAPEUTIC INTERVENTION, ACTIVITY, EDUCATION, AND TRAINING TO ADDRESS SAFETY AND INDEPENDENCE OF ADLS AND FUNCTIONAL TRANSFERS IN HOME ENVIRONMENT. ACTIVITIES OF DAILY LIVING (OT/MARIANNE) THERAPEUTIC EXERCISE (OT/TRAVELER CHANGER) ENERGY CONSERVATION/ACTIVITY DEMAND (OT/TRAVELER CHANGER) OT/TRAVELER CHANGER TO MONITOR AND EDUCATE ON OXYGEN SATURATION DURING ADLS/IADLS, NOTIFY PHYSICIAN AND/OR THE RN CLINICAL PREPRESS MANAGER FOR PHYSICIAN NOTIFICATION AND IF O2 SATS BELOW 90% AFTER 10 MIN OF REST. OT / TRAVELER CHANGER TO IDENTIFY FALL RISK FACTORS; EDUCATE THE PATIENT/CAREGIVER ON WAYS TO REDUCE FALL RISK FACTORS AND ESTABLISH HOME EXERCISE PROGRAM TO MINIMIZE FALL RISK. MAY TEACH THE PATIENT FLOOR RECOVERY WHEN CLINICALLY APPROPRIATE. OT/TRAVELER CHANGER TO EDUCATE ON HYPERTENSION SELF-MANAGEMENT OT/MARIANNE TO EDUCATE ON ATRIAL FIBRILLATION SELF-MANAGEMENT. [code = AGENCY MAY PERFORM A RESUMPTION OF CARE VISIT FOLLOWING ANY HOSPITAL ADMISSION. OT TO EVALUATE, OBSERVE / ASSESS, AND MONITOR, TRAVELER CHANGER TO OBSERVE AND MONITOR, PROVIDE SKILLED THERAPEUTIC INTERVENTION, ACTIVITY, EDUCATION, AND TRAINING TO ADDRESS SAFETY AND INDEPENDENCE OF ADLS AND FUNCTIONAL TRANSFERS IN HOME ENVIRONMENT. ACTIVITIES OF DAILY LIVING (OT/MARIANNE) THERAPEUTIC EXERCISE (OT/TRAVELER CHANGER) ENERGY CONSERVATION/ACTIVITY DEMAND (OT/MARIANNE) OT/TRAVELER CHANGER TO MONITOR AND EDUCATE ON OXYGEN SATURATION DURING ADLS/IADLS, NOTIFY PHYSICIAN AND/OR THE RN CLINICAL PREPRESS MANAGER FOR PHYSICIAN NOTIFICATION AND IF O2 SATS BELOW 90% AFTER 10 MIN OF REST. OT / MARIANNE TO IDENTIFY FALL RISK FACTORS; EDUCATE THE PATIENT/CAREGIVER ON WAYS TO REDUCE FALL RISK FACTORS AND ESTABLISH HOME EXERCISE PROGRAM TO MINIMIZE FALL RISK. MAY TEACH THE PATIENT FLOOR RECOVERY WHEN CLINICALLY APPROPRIATE. OT/TRAVELER CHANGER TO EDUCATE ON HYPERTENSION SELF-MANAGEMENT OT/MARIANNE TO [...] ADMISSION [facility] [id number] [phone]
--- OUTSIDE RECORDS SUMMARY | 2025-04-06 18:00 | XMS_ITS | Clinical Summary ---
Author Organization Unknown Care Team Providers Care Band Top Maker Name Role Phone DIGNA ARIEL, ESTRELLA Unavailable Unava dinora STOKES RN, FRANKIE Unavailable Unavailabl e KARI PT, DIDI Unavailable Unavailable NAT COSMETIC SALES ASSISTANT, GAUDENCIO Unavailable Unavailabl e RADHA OT, ROLANDO Unavailable Unavailable JOANNE STEVEN, HATTIE Unavailable Unavailable Payers Payer Name Policy Type Policy Number Effective Date Expira tion Date MEDICARE.[facility] [id number] Problems Condition Name Condition Details Condition Category [...] OF PNEUMONIA (RECURRENT) Active 02-07 00:00: 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 [...] 80 mg tablet 02-07 00:00: 00 Yes [id number] CHOLESTEROL 1 tablet DAILY 1 tablet DAILY (route: oral) Med Classific ation: Cardiovas cular Therapy Agents digoxin 125 mcg (0.125 mg) tablet 02-07 00:00: 00 02-21 23:59 :00 No [id number] HEART RHYTHM 1 tablet DAILY 1 tablet DAILY (route: oral) Med Classific ation: Cardiovas cular Therapy Agents escitalopra m 10 mg tablet 02-07 00:00: 00 Yes [id number] MOOD 1 tablet DAILY 1 tablet DAILY (route: oral) Med Classific ation: Central Nervous System Agents ezetimibe 10 mg tablet 02-07 00:00: 00 Yes [id number] CHOLESTEROL 1 tablet DAILY 1 tablet DAILY (route: oral) Med Classific ation: Cardiovas cular Therapy Agents metoprolol succinate ER 25 mg tablet,exte nded release 24 hr 02-07 00:00: 00 02-21 23:59 :00 No [id number] BLOOD PRESSURE 0.5 tablet DAILY 0.5 tablet DAILY (route: oral) Med Classific ation: Cardiovas cular Therapy Agents pantoprazol e 40 mg tablet,joão yed release 02-07 00:00: 00 02-21 23:59 :00 No [id number] STOMACH ACID 1 tablet DAILY 1 tablet DAILY (route: oral) Med Classific ation: Gastroint estinal Therapy Agents prednisone 5 mg tablet 02-07 00:00: 00 Yes [id number] ADRENAL INSUFFICIEN CY 1 tablet DAILY 1 tablet DAILY (route: oral) Med Classific ation: Endocrine spironolact one 25 mg tablet 02-07 00:00: 00 Yes [id number] FLUID RETENTION 0.5 tablet DAILY 0.5 tablet DAILY (route: oral) Med Classific ation: Cardiovas cular Therapy Agents tamsulosin 0.4 mg capsule 02-07 00:00: 00 02-21 23:59 :00 No [id number] URINARY HEALTH 1 capsule DAILY 1 capsule DAILY (route: oral) Med Classific ation: Genitouri nary Therapy acetaminoph en 325 mg tablet 2024-05 00:00: 00 Yes [id number] PAIN 2 tablet 2 TIMES DAILY 2 tablet 2 TIMES DAILY (route: oral) Med Classific ation: Analgesic , Anti-infl ammatory or Antipyret ic aspirin 81 mg tablet 2024-05 00:00: 00 Yes [id number] ANTICOAGULA NT 1 tablet DAILY 1 tablet DAILY (route: oral) Med Classific ation: Hematolog ical Agents ipratropium 0.5 mg-albutero l 3 mg (2.5 mg base)/3 mL nebulizatio n soln 2024-05 00:00: 00 Yes [id number] COPD 3 mL EVERY 6 HOURS 3 mL EVERY 6 HOURS (route: inhalation ) Med Classific ation: Respirato ry Therapy Agents Lanoxin 62.5 mcg (0.0625 mg) tablet 2024-05 00:00: 00 Yes [id number] CHF 1 tablet DAILY 1 tablet DAILY (route: oral) Med Classific ation: Cardiovas cular Therapy Agents Lasix 20 mg tablet 2024-05 00:00: 00 Yes [id number] CHF 1 tablet DAILY 1 tablet DAILY (route: oral) Med Classific ation: Cardiovas cular Therapy Agents Toprol XL 25 mg tablet,exte nded release 2024-05 00:00: 00 Yes [id number] BP 25 mg DAILY 25 mg DAILY [...] SYSTEM MANAGEMENT; RN TO ASSESS AND TEACH, ENGINEERING PATTERNMAKER/DIRECTOR OF ADULT EPILEPSY TO OBSERVE AND TEACH RELATED TO ALTERED RESPIRATORY STATUS TO MINIMIZE COMPLICATIONS AND REDUCE HOSPITALIZATION. [code = SN 1WK9 PT 1WK1 OT EFFECTIVE 02/10/2025K1 RESPIRATORY SYSTEM MANAGEMENT; RN TO ASSESS AND TEACH, ENGINEERING PATTERNMAKER/DIRECTOR OF ADULT EPILEPSY TO OBSERVE AND TEACH RELATED TO ALTERED RESPIRATORY STATUS TO MINIMIZE COMPLICATIONS AND REDUCE HOSPITALIZATION.] Future Scheduled Test TRACHEOSTO MY CARE MANAGEMENT; RN/ENGINEERING PATTERNMAKER/DIRECTOR OF ADULT EPILEPSY TO INSTRUCT PATIENT/CAREGIVER ON CARE AND MANAGEMENT OF TRACHEOSTOMY. RN/ ENGINEERING PATTERNMAKER/DIRECTOR OF ADULT EPILEPSY TO PROVIDE SKILLED TEACHING ON TRACH COLLAR SUCTIONING PRN WITH 14 FR SUCTION CATHETER PER PATIENT TRACH CARE WITH INNER CANNULA: REMOVE INNER CANNULA, CLEANSE WITH NORMAL SALINE AND OR STERILE WATER AND REINSERT NON-DISPOSABLE CANNULA SIZE OF INNER CANNULA 5 BROOKS [code = TRACHEOSTOMY CARE MANAGEMENT; RN/ENGINEERING PATTERNMAKER/DIRECTOR OF ADULT EPILEPSY TO INSTRUCT PATIENT/CAREGIVER ON CARE AND MANAGEMENT OF TRACHEOSTOMY. RN/ ENGINEERING PATTERNMAKER/DIRECTOR OF ADULT EPILEPSY TO PROVIDE SKILLED TEACHING ON TRACH COLLAR SUCTIONING PRN WITH 14 FR SUCTION CATHETER PER PATIENT TRACH CARE WITH INNER CANNULA: REMOVE INNER CANNULA, CLEANSE WITH NORMAL SALINE AND OR STERILE WATER AND REINSERT NON-DISPOSABLE CANNULA SIZE OF INNER CANNULA 5 BROOKS] Future Scheduled Test FALL REDUC TION MANAGEMENT; RN TO ASSESS AND OBSERVE, ENGINEERING PATTERNMAKER/DIRECTOR OF ADULT EPILEPSY TO OBSERVE FALL RISK FACTORS AND EDUCATE PATIENT/CAREGIVER ON STRATEGIES TO MINIMIZE THE RISK OF FALLING. [code = FALL REDUCTION MANAGEMENT; RN TO ASSESS AND OBSERVE, ENGINEERING PATTERNMAKER/DIRECTOR OF ADULT EPILEPSY TO OBSERVE FALL RISK FACTORS AND EDUCATE PATIENT/CAREGIVER ON STRATEGIES TO MINIMIZE THE RISK OF FALLING.] Future Scheduled Test ANEMIA MAN AGEMENT; RN TO ASSESS AND TEACH, DIRECTOR OF ADULT EPILEPSY/ENGINEERING PATTERNMAKER TO OBSERVE AND TEACH AND PROVIDE EDUCATION ON ANEMIA. [code = ANEMIA MANAGEMENT; RN TO ASSESS AND TEACH, DIRECTOR OF ADULT EPILEPSY/ENGINEERING PATTERNMAKER TO OBSERVE AND TEACH AND PROVIDE EDUCATION ON ANEMIA.] Future Scheduled Test RN TO OBSE RVE, ASSESS, EVALUATE, AND DEVELOP AN INDIVIDUALIZED PLAN OF CARE. AGENCY MAY ACCEPT ORDERS FROM CONSULTING PHYSICIANS RN TO OBSERVE AND ASSESS, ENGINEERING PATTERNMAKER/DIRECTOR OF ADULT EPILEPSY TO OBSERVE FOR RISK FOR FALLS AND INSTRUCT IN FALL PREVENTION, HOME SAFETY, MEDICATION MANAGEMENT, INFECTION PREVENTION, AND NUTRITION MANAGEMENT. RN/ENGINEERING PATTERNMAKER/DIRECTOR OF ADULT EPILEPSY NURSE MAY PERFORM O2 SATURATION LEVEL ON ADMISSION AND PRN FOR RN TO ASSESS/ENGINEERING PATTERNMAKER TO OBSERVE PATIENT, WITH NOTIFICATION TO THE PHYSICIAN IF SATURATION IS 90% IN THE ABSENCE OF MORE SPECIFIC PARAMETERS FROM THE PHYSICIAN. AGENCY MAY PERFORM A RESUMPTION OF CARE VISIT FOLLOWING ANY HOSPITAL ADMISSION. RN/ENGINEERING PATTERNMAKER/DIRECTOR OF ADULT EPILEPSY TO MONITOR CO-MORBID CONDITIONS LISTED ON THE PLAN OF CARE AND ANY NEW CONDITIONS THAT PRESENT THEMSELVES DURING THIS EPISODE TO IDENTIFY CHANGES AND INTERVENE TO MINIMIZE COMPLICATIONS. [code = RN TO OBSERVE, ASSESS, EVALUATE, AND DEVELOP AN INDIVIDUALIZED PLAN OF CARE. AGENCY MAY ACCEPT ORDERS FROM CONSULTING PHYSICIANS RN TO OBSERVE AND ASSESS, ENGINEERING PATTERNMAKER/DIRECTOR OF ADULT EPILEPSY TO OBSERVE FOR RISK FOR FALLS AND INSTRUCT IN FALL PREVENTION, HOME SAFETY, MEDICATION MANAGEMENT, INFECTION PREVENTION, AND NUTRITION MANAGEMENT. RN/ENGINEERING PATTERNMAKER/DIRECTOR OF ADULT EPILEPSY NURSE MAY PERFORM O2 SATURATION LEVEL ON ADMISSION AND PRN FOR RN TO ASSESS/ENGINEERING PATTERNMAKER TO OBSERVE PATIENT, WITH NOTIFICATION TO THE PHYSICIAN IF SATURATION IS 90% IN THE ABSENCE OF MORE SPECIFIC PARAMETERS FROM THE PHYSICIAN. AGENCY MAY PERFORM A RESUMPTION OF CARE VISIT FOLLOWING ANY HOSPITAL ADMISSION. RN/ENGINEERING PATTERNMAKER/DIRECTOR OF ADULT EPILEPSY TO MONITOR CO-MORBID CONDITIONS LISTED ON THE PLAN OF CARE AND ANY NEW CONDITIONS THAT PRESENT THEMSELVES DURING THIS EPISODE TO IDENTIFY CHANGES AND INTERVENE TO MINIMIZE COMPLICATIONS.] Future Scheduled Test PAIN MANAG EMENT; RN TO ASSESS AND TEACH, DIRECTOR OF ADULT EPILEPSY/ENGINEERING PATTERNMAKER TO OBSERVE AND TEACH AND PROVIDE EDUCATION ON PAIN MANAGEMENT TECHNIQUES. [code = PAIN MANAGEMENT; RN TO ASSESS AND TEACH, DIRECTOR OF ADULT EPILEPSY/ENGINEERING PATTERNMAKER TO OBSERVE AND TEACH AND PROVIDE EDUCATION ON PAIN MANAGEMENT TECHNIQUES.] Future Scheduled Test RISK FOR H OSPITALIZATION; RN TO ASSESS/TEACH, DIRECTOR OF ADULT EPILEPSY/ENGINEERING PATTERNMAKER TO OBSERVE/TEACH PATIENT/CAREGIVER ON RISK FOR HOSPITALIZATION/EMERGENCY ROOM VISITS, TEACH SIGNS AND SYMPTOMS THAT PUT PATIENT AT RISK, WHEN TO NOTIFY NURSE/PHYSICIAN OF COMPLICATIONS/DECLINE, AND WHEN TO CALL 911. [code = RISK FOR HOSPITALIZATION; RN TO ASSESS/TEACH, DIRECTOR OF ADULT EPILEPSY/ENGINEERING PATTERNMAKER TO OBSERVE/TEACH PATIENT/CAREGIVER ON RISK FOR HOSPITALIZATION/EMERGENCY ROOM VISITS, TEACH SIGNS AND SYMPTOMS THAT PUT PATIENT AT RISK, WHEN TO NOTIFY NURSE/PHYSICIAN OF COMPLICATIONS/DECLINE, AND WHEN TO CALL 911.] Future Scheduled Test CARDIOVASC ULAR SYSTEM; RN TO ASSESS/TEACH, ENGINEERING PATTERNMAKER/DIRECTOR OF ADULT EPILEPSY TO OBSERVE/TEACH RELATED TO ALTERED CARDIOVASCULAR STATUS TO MINIMIZE COMPLICATIONS AND REDUCE HOSPITALIZATION. [code = CARDIOVASCULAR SYSTEM; RN TO ASSESS/TEACH, ENGINEERING PATTERNMAKER/DIRECTOR OF ADULT EPILEPSY TO OBSERVE/TEACH RELATED TO ALTERED CARDIOVASCULAR STATUS TO MINIMIZE COMPLICATIONS AND REDUCE HOSPITALIZATION.] Future Scheduled Test HYPERTENSI ON MANAGEMENT; RN TO ASSESS AND TEACH, ENGINEERING PATTERNMAKER/DIRECTOR OF ADULT EPILEPSY TO OBSERVE AND TEACH WARNING SIGNS AND SYMPTOMS TO AVOID HOSPITALIZATION. [code = HYPERTENSION MANAGEMENT; RN TO ASSESS AND TEACH, ENGINEERING PATTERNMAKER/DIRECTOR OF ADULT EPILEPSY TO OBSERVE AND TEACH WARNING SIGNS AND SYMPTOMS TO AVOID HOSPITALIZATION.] Future Scheduled Test HEART FAIL URE MONITORING RN/DIRECTOR OF ADULT EPILEPSY/ENGINEERING PATTERNMAKER TO MONITOR PATIENT FOR SIGNS AND SYMPTOMS OF HEART FAILURE EXACERBATION, MONITOR FOR ADHERENCE WITH MEDICATION AND HEART FAILURE MANAGEMENT REGIMEN. [code = HEART FAILURE MONITORING RN/DIRECTOR OF ADULT EPILEPSY/ENGINEERING PATTERNMAKER TO MONITOR PATIENT FOR SIGNS AND SYMPTOMS OF HEART FAILURE EXACERBATION, MONITOR FOR ADHERENCE WITH MEDICATION AND HEART FAILURE MANAGEMENT REGIMEN.] Future Scheduled Test DIABETES M ONITORING RN/DIRECTOR OF ADULT EPILEPSY/ENGINEERING PATTERNMAKER TO MONITOR BLOOD SUGAR LOG FOR BLOOD SUGAR READINGS THAT ARE BEING CHECKED BY PATIENT, CAREGIVER NEEDED FOR SIGNS AND SYMPTOMS OF HYPER/HYPOGLYCEMIA. PATIENT THERAPEUTIC BLOOD SUGAR PARAMETERS ARE 70 - 300. REPORT BLOOD SUGARS OUT OF RANGE TO PHYSICIAN. NURSE MAY PERFORM FINGER STICK BLOOD GLUCOSE NEEDED FOR SIGNS AND SYMPTOMS OF HYPO AND HYPERGLYCEMIA. RN/DIRECTOR OF ADULT EPILEPSY/ENGINEERING PATTERNMAKER TO MONITOR ADHERENCE OF PATIENT/CAREGIVER PERFORMING DIABETIC FOOT CARE AND MAY PERFORM DIABETIC FOOT CARE PRN. RN/DIRECTOR OF ADULT EPILEPSY/ENGINEERING PATTERNMAKER TO MONITOR FOR ADHERENCE TO DIABETIC SELF-CARE AND MANAGEMENT INCLUDING MEDICATIONS. [code = DIABETES MONITORING RN/DIRECTOR OF ADULT EPILEPSY/ENGINEERING PATTERNMAKER TO MONITOR BLOOD SUGAR LOG FOR BLOOD SUGAR READINGS THAT ARE BEING CHECKED BY PATIENT, CAREGIVER NEEDED FOR SIGNS AND SYMPTOMS OF HYPER/HYPOGLYCEMIA. PATIENT THERAPEUTIC BLOOD SUGAR PARAMETERS ARE 70 - 300. REPORT BLOOD SUGARS OUT OF RANGE TO PHYSICIAN. NURSE MAY PERFORM FINGER STICK BLOOD GLUCOSE NEEDED FOR SIGNS AND SYMPTOMS OF HYPO AND HYPERGLYCEMIA. RN/DIRECTOR OF ADULT EPILEPSY/ENGINEERING PATTERNMAKER TO MONITOR ADHERENCE OF PATIENT/CAREGIVER PERFORMING DIABETIC FOOT CARE AND MAY PERFORM DIABETIC FOOT CARE PRN. RN/DIRECTOR OF ADULT EPILEPSY/ENGINEERING PATTERNMAKER TO MONITOR FOR ADHERENCE TO DIABETIC SELF-CARE AND MANAGEMENT INCLUDING MEDICATIONS.] Future Scheduled Test HYPOTENSIO N MANAGEMENT; RN TO ASSESS AND TEACH/ ENGINEERING PATTERNMAKER /DIRECTOR OF ADULT EPILEPSY TO OBSERVE AND TEACH WARNING SIGNS AND SYMPTOMS TO AVOID HOSPITALIZATION. [code = HYPOTENSION MANAGEMENT; RN TO ASSESS AND TEACH/ ENGINEERING PATTERNMAKER /DIRECTOR OF ADULT EPILEPSY TO OBSERVE AND TEACH WARNING SIGNS AND SYMPTOMS TO AVOID HOSPITALIZATION.] Future Scheduled Test ARRHYTHMIA MANAGEMENT; RN TO ASSESS AND TEACH, ENGINEERING PATTERNMAKER/DIRECTOR OF ADULT EPILEPSY TO OBSERVE AND TEACH WARNING SIGNS AND SYMPTOMS TO AVOID HOSPITALIZATION. [code = ARRHYTHMIA MANAGEMENT; RN TO ASSESS AND TEACH, ENGINEERING PATTERNMAKER/DIRECTOR OF ADULT EPILEPSY TO OBSERVE AND TEACH WARNING SIGNS AND SYMPTOMS TO AVOID HOSPITALIZATION.] Future Scheduled Test MEDICATION MANAGEMENT; RN/ENGINEERING PATTERNMAKER/DIRECTOR OF ADULT EPILEPSY TO REVIEW MEDICATIONS FOR INTERACTIONS, EFFECTIVENESS OF DRUG THERAPY, AND SIGNS/SYMPTOMS OF ADVERSE REACTIONS. MAY INSTRUCT AND REINFORCE MEDICATION TEACHING RELATED TO THE USE OF MEDICATIONS, DOSAGE, FREQUENCY, PURPOSE, SIDE EFFECTS, AND TO REPORT COMPLICATIONS. [code = MEDICATION MANAGEMENT; RN/ENGINEERING PATTERNMAKER/DIRECTOR OF ADULT EPILEPSY TO REVIEW MEDICATIONS FOR INTERACTIONS, EFFECTIVENESS OF [...] EVAL UATE, OBSERVE / ASSESS, AND MONITOR, COSMETIC SALES ASSISTANT TO OBSERVE AND MONITOR, PROVIDE SKILLED THERAPEUTIC INTERVENTION, ACTIVITY, EDUCATION, AND TRAINING TO ADDRESS GEN. WEAKNESS, POOR OVERALL ACTIVITY TOLERANCE, AND FUNCTIONAL LIMITATIONS IMPACTING SAFETY AND INDEPENDENCE. BED MOBILITY (PT/COSMETIC SALES ASSISTANT) PT/COSMETIC SALES ASSISTANT TO PROVIDE GAIT TRAINING FOR IMPROVED MOBILITY AND /OR TO NORMALIZE GAIT PATTERN THERAPEUTIC EXERCISES AND ESTABLISHING A HOME EXERCISE PROGRAM (PT/COSMETIC SALES ASSISTANT) PT/COSMETIC SALES ASSISTANT TO PROVIDE STAIR TRAINING PT / COSMETIC SALES ASSISTANT TO MONITOR AND EDUCATE ON OXYGEN SATURATION DURING ADLS/IADLS, NOTIFY PHYSICIAN AND/OR THE RN CLINICAL FLAT EXAMINER FOR PHYSICIAN NOTIFICATION AND IF O2 SATS BELOW PHYSICIAN ORDERED PARAMETERS AFTER 10 MIN OF REST PT / COSMETIC SALES ASSISTANT TO OBSERVE FOR EARLY SIGNS AND SYMPTOMS OF DEPRESSION OR DEPRESSION GETTING WORSE AND TO EDUCATE ON HOW TO FIND HELP. PT / COSMETIC SALES ASSISTANT MAY EDUCATE ON PAIN MANAGEMENT CLINICALLY INDICATED, INCLUDING NON-PHARMACOLOGICAL PAIN REDUCTION TECHNIQUES PT / COSMETIC SALES ASSISTANT TO MONITOR FOR HYPO/HYPERGLYCEMIA AND CONDUCT ROUTINE FOOT INSPECTIONS. RECORD PATIENT REPORTED BLOOD SUGAR LEVELS AND NOTIFY PHYSICIAN AND/OR THE RN CLINICAL FLAT EXAMINER FOR PHYSICIAN NOTIFICATION IF BLOOD SUGAR LEVELS ARE OUTSIDE ORDERED PARAMETERS. TEACH PATIENT/CAREGIVER ON DAILY FOOT INSPECTIONS PT / COSMETIC SALES ASSISTANT TO INSTRUCT PATIENT/CAREGIVER ON RISK FOR HOSPITALIZATION/EMERGENCY ROOM VISITS, TEACH SIGNS AND SYMPTOMS THAT PUT PATIENT AT RISK, WHEN TO NOTIFY NURSE/PHYSICIAN OF COMPLICATIONS/DECLINE, AND WHEN TO CALL 911. PT/COSMETIC SALES ASSISTANT TO EDUCATE ON ARTHRITIS SELF-MANAGEMENT PT / COSMETIC SALES ASSISTANT TO EDUCATE ON HEART FAILURE SELF-MANAGEMENT PT / COSMETIC SALES ASSISTANT TO EDUCATE ON HYPERTENSION SELF-MANAGEMENT PT TO ASSESS / COSMETIC SALES ASSISTANT TO MONITOR CARDIO/RESPIRATORY SYSTEM; AND NOTIFY THE PHYSICIAN AND/OR THE RN CLINICAL FLAT EXAMINER FOR PHYSICIAN NOTIFICATION FOR EARLY SIGNS AND SYMPTOMS OF EXACERBATION OR DETERIORATION. PT / COSMETIC SALES ASSISTANT TO EDUCATE ON ATRIAL FIBRILLATION SELF-MANAGEMENT. PT / COSMETIC SALES ASSISTANT TO EDUCATE ON PNEUMONIA / ASPIRATION PNEUMONIA SELF-MANAGEMENT. PT/COSMETIC SALES ASSISTANT TO IDENTIFY FALL RISK FACTORS; EDUCATE THE PATIENT/CAREGIVER ON WAYS TO REDUCE FALL RISK FACTORS AND ESTABLISH HOME EXERCISE PROGRAM TO MINIMIZE FALL RISK. MAY TEACH THE PATIENT FLOOR RECOVERY WHEN CLINICALLY APPROPRIATE [code = PT TO EVALUATE, OBSERVE / ASSESS, AND MONITOR, COSMETIC SALES ASSISTANT TO OBSERVE AND MONITOR, PROVIDE SKILLED THERAPEUTIC INTERVENTION, ACTIVITY, EDUCATION, AND TRAINING TO ADDRESS GEN. WEAKNESS, POOR OVERALL ACTIVITY TOLERANCE, AND FUNCTIONAL LIMITATIONS IMPACTING SAFETY AND INDEPENDENCE. BED MOBILITY (PT/COSMETIC SALES ASSISTANT) PT/COSMETIC SALES ASSISTANT TO PROVIDE GAIT TRAINING FOR IMPROVED MOBILITY AND /OR TO NORMALIZE GAIT PATTERN THERAPEUTIC EXERCISES AND ESTABLISHING A HOME EXERCISE PROGRAM (PT/COSMETIC SALES ASSISTANT) PT/COSMETIC SALES ASSISTANT TO PROVIDE STAIR TRAINING PT / COSMETIC SALES ASSISTANT TO MONITOR AND EDUCATE ON OXYGEN SATURATION DURING ADLS/IADLS, NOTIFY PHYSICIAN AND/OR THE RN CLINICAL FLAT EXAMINER FOR PHYSICIAN NOTIFICATION AND IF O2 SATS BELOW PHYSICIAN ORDERED PARAMETERS AFTER 10 MIN OF REST PT / COSMETIC SALES ASSISTANT TO OBSERVE FOR EARLY SIGNS AND SYMPTOMS OF DEPRESSION OR DEPRESSION GETTING WORSE AND TO EDUCATE ON HOW TO FIND HELP. PT / COSMETIC SALES ASSISTANT MAY EDUCATE ON PAIN MANAGEMENT CLINICALLY INDICATED, INCLUDING NON-PHARMACOLOGICAL PAIN REDUCTION TECHNIQUES PT / COSMETIC SALES ASSISTANT TO MONITOR FOR HYPO/HYPERGLYCEMIA AND CONDUCT ROUTINE FOOT INSPECTIONS. RECORD PATIENT REPORTED BLOOD SUGAR LEVELS AND NOTIFY PHYSICIAN AND/OR THE RN CLINICAL FLAT EXAMINER FOR PHYSICIAN NOTIFICATION IF BLOOD SUGAR LEVELS ARE OUTSIDE ORDERED PARAMETERS. TEACH PATIENT/CAREGIVER ON DAILY FOOT INSPECTIONS PT / COSMETIC SALES ASSISTANT TO INSTRUCT PATIENT/CAREGIVER ON RISK FOR HOSPITALIZATION/EMERGENCY ROOM VISITS, TEACH SIGNS AND SYMPTOMS THAT PUT PATIENT AT RISK, WHEN TO NOTIFY NURSE/PHYSICIAN OF COMPLICATIONS/DECLINE, AND WHEN TO CALL 911. PT/COSMETIC SALES ASSISTANT TO EDUCATE ON ARTHRITIS SELF-MANAGEMENT PT / COSMETIC SALES ASSISTANT TO EDUCATE ON HEART FAILURE SELF-MANAGEMENT PT / COSMETIC SALES ASSISTANT TO EDUCATE ON HYPERTENSION SELF-MANAGEMENT PT TO ASSESS / COSMETIC SALES ASSISTANT TO MONITOR CARDIO/RESPIRATORY SYSTEM; AND NOTIFY THE PHYSICIAN AND/OR THE RN CLINICAL FLAT EXAMINER FOR PHYSICIAN NOTIFICATION FOR EARLY SIGNS AND SYMPTOMS OF EXACERBATION OR DETERIORATION. PT / COSMETIC SALES ASSISTANT TO EDUCATE ON ATRIAL FIBRILLATION SELF-MANAGEMENT. PT / COSMETIC SALES ASSISTANT TO EDUCATE ON PNEUMONIA / ASPIRATION PNEUMONIA SELF-MANAGEMENT. PT/COSMETIC SALES ASSISTANT TO IDENTIFY FALL RISK FACTORS; EDUCATE THE PATIENT/CAREGIVER ON WAYS TO REDUCE FALL RISK FACTORS AND ESTABLISH HOME EXERCISE PROGRAM TO MINIMIZE FALL RISK. MAY TEACH THE PATIENT FLOOR RECOVERY WHEN CLINICALLY APPROPRIATE] Future Scheduled Test AGENCY MAY PERFORM A RESUMPTION OF CARE VISIT FOLLOWING ANY HOSPITAL ADMISSION. OT TO EVALUATE, OBSERVE / ASSESS, AND MONITOR, SLOT MACHINE REPAIRER TO OBSERVE AND MONITOR, PROVIDE SKILLED THERAPEUTIC INTERVENTION, ACTIVITY, EDUCATION, AND TRAINING TO ADDRESS SAFETY AND INDEPENDENCE OF ADLS AND FUNCTIONAL TRANSFERS IN HOME ENVIRONMENT. ACTIVITIES OF DAILY LIVING (OT/MARIANNE) THERAPEUTIC EXERCISE (OT/SLOT MACHINE REPAIRER) ENERGY CONSERVATION/ACTIVITY DEMAND (OT/SLOT MACHINE REPAIRER) OT/SLOT MACHINE REPAIRER TO MONITOR AND EDUCATE ON OXYGEN SATURATION DURING ADLS/IADLS, NOTIFY PHYSICIAN AND/OR THE RN CLINICAL FLAT EXAMINER FOR PHYSICIAN NOTIFICATION AND IF O2 SATS BELOW 90% AFTER 10 MIN OF REST. OT / SLOT MACHINE REPAIRER TO IDENTIFY FALL RISK FACTORS; EDUCATE THE PATIENT/CAREGIVER ON WAYS TO REDUCE FALL RISK FACTORS AND ESTABLISH HOME EXERCISE PROGRAM TO MINIMIZE FALL RISK. MAY TEACH THE PATIENT FLOOR RECOVERY WHEN CLINICALLY APPROPRIATE. OT/SLOT MACHINE REPAIRER TO EDUCATE ON HYPERTENSION SELF-MANAGEMENT OT/MARIANNE TO EDUCATE ON ATRIAL FIBRILLATION SELF-MANAGEMENT. [code = AGENCY MAY PERFORM A RESUMPTION OF CARE VISIT FOLLOWING ANY HOSPITAL ADMISSION. OT TO EVALUATE, OBSERVE / ASSESS, AND MONITOR, SLOT MACHINE REPAIRER TO OBSERVE AND MONITOR, PROVIDE SKILLED THERAPEUTIC INTERVENTION, ACTIVITY, EDUCATION, AND TRAINING TO ADDRESS SAFETY AND INDEPENDENCE OF ADLS AND FUNCTIONAL TRANSFERS IN HOME ENVIRONMENT. ACTIVITIES OF DAILY LIVING (OT/MARIANNE) THERAPEUTIC EXERCISE (OT/SLOT MACHINE REPAIRER) ENERGY CONSERVATION/ACTIVITY DEMAND (OT/MARIANNE) OT/SLOT MACHINE REPAIRER TO MONITOR AND EDUCATE ON OXYGEN SATURATION DURING ADLS/IADLS, NOTIFY PHYSICIAN AND/OR THE RN CLINICAL FLAT EXAMINER FOR PHYSICIAN NOTIFICATION AND IF O2 SATS BELOW 90% AFTER 10 MIN OF REST. OT / MARIANNE TO IDENTIFY FALL RISK FACTORS; EDUCATE THE PATIENT/CAREGIVER ON WAYS TO REDUCE FALL RISK FACTORS AND ESTABLISH HOME EXERCISE PROGRAM TO MINIMIZE FALL RISK. MAY TEACH THE PATIENT FLOOR RECOVERY WHEN CLINICALLY APPROPRIATE. OT/SLOT MACHINE REPAIRER TO EDUCATE ON HYPERTENSION SELF-MANAGEMENT OT/MARIANNE TO [...] AD[facility]ION [facility] [id number]
--- OUTSIDE RECORDS SUMMARY | 2025-04-06 18:00 | XMS_ITS | Clinical Summary ---
Author Organization Unknown Care Team Providers Care Inspector Weights And Measures Name Role Phone DIGNA ARIEL, ESTRELLA Unavailable Unava dinora STOKES RN, FRANKIE Unavailable Unavailabl e KARI PT, DIDI Unavailable Unavailable NAT CASTING AND PASTING SUPERVISOR, GAUDENCIO Unavailable Unavailabl e RADHA OT, ROLANDO Unavailable Unavailable JOANNE STEVEN, HATTIE Unavailable Unavailable Payers Payer Name Policy Type Policy Number Effective Date Expira tion Date MEDICARE.[facility] [id number] Problems Condition Name Condition Details Condition Category Status Onset Date Resolution Date Last Treatment Date Treating Clinician Comments 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 02-07 [...] OF PNEUMONIA (RECURRENT) Active 02-07 00:00: 00 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) USE OF SYSTEMIC STEROIDS Active 02-07 [...] 80 mg tablet 02-07 00:00: 00 Yes [id number] CHOLESTEROL 1 tablet DAILY 1 tablet DAILY (route: oral) Med Classific ation: Cardiovas cular Therapy Agents digoxin 125 mcg (0.125 mg) tablet 02-07 00:00: 00 02-21 23:59 :00 No [id number] HEART RHYTHM 1 tablet DAILY 1 tablet DAILY (route: oral) Med Classific ation: Cardiovas cular Therapy Agents escitalopra m 10 mg tablet 02-07 00:00: 00 Yes [id number] MOOD 1 tablet DAILY 1 tablet DAILY (route: oral) Med Classific ation: Central Nervous System Agents ezetimibe 10 mg tablet 02-07 00:00: 00 Yes [id number] CHOLESTEROL 1 tablet DAILY 1 tablet DAILY (route: oral) Med Classific ation: Cardiovas cular Therapy Agents metoprolol succinate ER 25 mg tablet,exte nded release 24 hr 02-07 00:00: 00 02-21 23:59 :00 No [id number] BLOOD PRESSURE 0.5 tablet DAILY 0.5 tablet DAILY (route: oral) Med Classific ation: Cardiovas cular Therapy Agents pantoprazol e 40 mg tablet,joão yed release 02-07 00:00: 00 02-21 23:59 :00 No [id number] STOMACH ACID 1 tablet DAILY 1 tablet DAILY (route: oral) Med Classific ation: Gastroint estinal Therapy Agents prednisone 5 mg tablet 02-07 00:00: 00 Yes [id number] ADRENAL INSUFFICIEN CY 1 tablet DAILY 1 tablet DAILY (route: oral) Med Classific ation: Endocrine spironolact one 25 mg tablet 02-07 00:00: 00 Yes [id number] FLUID RETENTION 0.5 tablet DAILY 0.5 tablet DAILY (route: oral) Med Classific ation: Cardiovas cular Therapy Agents tamsulosin 0.4 mg capsule 02-07 00:00: 00 02-21 23:59 :00 No [id number] URINARY HEALTH 1 capsule DAILY 1 capsule DAILY (route: oral) Med Classific ation: Genitouri nary Therapy acetaminoph en 325 mg tablet 2024-05 00:00: 00 Yes [id number] PAIN 2 tablet 2 TIMES DAILY 2 tablet 2 TIMES DAILY (route: oral) Med Classific ation: Analgesic , Anti-infl ammatory or Antipyret ic aspirin 81 mg tablet 2024-05 00:00: 00 Yes [id number] ANTICOAGULA NT 1 tablet DAILY 1 tablet DAILY (route: oral) Med Classific ation: Hematolog ical Agents ipratropium 0.5 mg-albutero l 3 mg (2.5 mg base)/3 mL nebulizatio n soln 2024-05 00:00: 00 Yes [id number] COPD 3 mL EVERY 6 HOURS 3 mL EVERY 6 HOURS (route: inhalation ) Med Classific ation: Respirato ry Therapy Agents Lanoxin 62.5 mcg (0.0625 mg) tablet 2024-05 00:00: 00 Yes [id number] CHF 1 tablet DAILY 1 tablet DAILY (route: oral) Med Classific ation: Cardiovas cular Therapy Agents Lasix 20 mg tablet 2024-05 00:00: 00 Yes [id number] CHF 1 tablet DAILY 1 tablet DAILY (route: oral) Med Classific ation: Cardiovas cular Therapy Agents Toprol XL 25 mg tablet,exte nded release 2024-05 00:00: 00 Yes [id number] BP 25 mg DAILY 25 mg DAILY [...] MANAGEMENT; RN TO ASSESS AND TEACH, BAND HEAD SAW OPERATOR/FLORAL ARTIST TO OBSERVE AND TEACH RELATED TO ALTERED RESPIRATORY STATUS TO MINIMIZE COMPLICATIONS AND REDUCE HOSPITALIZATION. [code = SN 1WK9 PT 1WK1 OT EFFECTIVE 02/10/2025K1 RESPIRATORY SYSTEM MANAGEMENT; RN TO ASSESS AND TEACH, BAND HEAD SAW OPERATOR/FLORAL ARTIST TO OBSERVE AND TEACH RELATED TO ALTERED RESPIRATORY STATUS TO MINIMIZE COMPLICATIONS AND REDUCE HOSPITALIZATION.] Future Scheduled Test TRACHEOSTO MY CARE MANAGEMENT; RN/BAND HEAD SAW OPERATOR/FLORAL ARTIST TO INSTRUCT PATIENT/CAREGIVER ON CARE AND MANAGEMENT OF TRACHEOSTOMY. RN/ BAND HEAD SAW OPERATOR/FLORAL ARTIST TO PROVIDE SKILLED TEACHING ON TRACH COLLAR SUCTIONING PRN WITH 14 FR SUCTION CATHETER PER PATIENT TRACH CARE WITH INNER CANNULA: REMOVE INNER CANNULA, CLEANSE WITH NORMAL SALINE AND OR STERILE WATER AND REINSERT NON-DISPOSABLE CANNULA SIZE OF INNER CANNULA 5 BROOKS [code = TRACHEOSTOMY CARE MANAGEMENT; RN/BAND HEAD SAW OPERATOR/FLORAL ARTIST TO INSTRUCT PATIENT/CAREGIVER ON CARE AND MANAGEMENT OF TRACHEOSTOMY. RN/ BAND HEAD SAW OPERATOR/FLORAL ARTIST TO PROVIDE SKILLED TEACHING ON TRACH COLLAR SUCTIONING PRN WITH 14 FR SUCTION CATHETER PER PATIENT TRACH CARE WITH INNER CANNULA: REMOVE INNER CANNULA, CLEANSE WITH NORMAL SALINE AND OR STERILE WATER AND REINSERT NON-DISPOSABLE CANNULA SIZE OF INNER CANNULA 5 BROOKS] Future Scheduled Test FALL REDUC TION MANAGEMENT; RN TO ASSESS AND OBSERVE, BAND HEAD SAW OPERATOR/FLORAL ARTIST TO OBSERVE FALL RISK FACTORS AND EDUCATE PATIENT/CAREGIVER ON STRATEGIES TO MINIMIZE THE RISK OF FALLING. [code = FALL REDUCTION MANAGEMENT; RN TO ASSESS AND OBSERVE, BAND HEAD SAW OPERATOR/FLORAL ARTIST TO OBSERVE FALL RISK FACTORS AND EDUCATE PATIENT/CAREGIVER ON STRATEGIES TO MINIMIZE THE RISK OF FALLING.] Future Scheduled Test ANEMIA MAN AGEMENT; RN TO ASSESS AND TEACH, FLORAL ARTIST/BAND HEAD SAW OPERATOR TO OBSERVE AND TEACH AND PROVIDE EDUCATION ON ANEMIA. [code = ANEMIA MANAGEMENT; RN TO ASSESS AND TEACH, FLORAL ARTIST/BAND HEAD SAW OPERATOR TO OBSERVE AND TEACH AND PROVIDE EDUCATION ON ANEMIA.] Future Scheduled Test RN TO OBSE RVE, ASSESS, EVALUATE, AND DEVELOP AN INDIVIDUALIZED PLAN OF CARE. AGENCY MAY ACCEPT ORDERS FROM CONSULTING PHYSICIANS RN TO OBSERVE AND ASSESS, BAND HEAD SAW OPERATOR/FLORAL ARTIST TO OBSERVE FOR RISK FOR FALLS AND INSTRUCT IN FALL PREVENTION, HOME SAFETY, MEDICATION MANAGEMENT, INFECTION PREVENTION, AND NUTRITION MANAGEMENT. RN/BAND HEAD SAW OPERATOR/FLORAL ARTIST NURSE MAY PERFORM O2 SATURATION LEVEL ON ADMISSION AND PRN FOR RN TO ASSESS/BAND HEAD SAW OPERATOR TO OBSERVE PATIENT, WITH NOTIFICATION TO THE PHYSICIAN IF SATURATION IS 90% IN THE ABSENCE OF MORE SPECIFIC PARAMETERS FROM THE PHYSICIAN. AGENCY MAY PERFORM A RESUMPTION OF CARE VISIT FOLLOWING ANY HOSPITAL ADMISSION. RN/BAND HEAD SAW OPERATOR/FLORAL ARTIST TO MONITOR CO-MORBID CONDITIONS LISTED ON THE PLAN OF CARE AND ANY NEW CONDITIONS THAT PRESENT THEMSELVES DURING THIS EPISODE TO IDENTIFY CHANGES AND INTERVENE TO MINIMIZE COMPLICATIONS. [code = RN TO OBSERVE, ASSESS, EVALUATE, AND DEVELOP AN INDIVIDUALIZED PLAN OF CARE. AGENCY MAY ACCEPT ORDERS FROM CONSULTING PHYSICIANS RN TO OBSERVE AND ASSESS, BAND HEAD SAW OPERATOR/FLORAL ARTIST TO OBSERVE FOR RISK FOR FALLS AND INSTRUCT IN FALL PREVENTION, HOME SAFETY, MEDICATION MANAGEMENT, INFECTION PREVENTION, AND NUTRITION MANAGEMENT. RN/BAND HEAD SAW OPERATOR/FLORAL ARTIST NURSE MAY PERFORM O2 SATURATION LEVEL ON ADMISSION AND PRN FOR RN TO ASSESS/BAND HEAD SAW OPERATOR TO OBSERVE PATIENT, WITH NOTIFICATION TO THE PHYSICIAN IF SATURATION IS 90% IN THE ABSENCE OF MORE SPECIFIC PARAMETERS FROM THE PHYSICIAN. AGENCY MAY PERFORM A RESUMPTION OF CARE VISIT FOLLOWING ANY HOSPITAL ADMISSION. RN/BAND HEAD SAW OPERATOR/FLORAL ARTIST TO MONITOR CO-MORBID CONDITIONS LISTED ON THE PLAN OF CARE AND ANY NEW CONDITIONS THAT PRESENT THEMSELVES DURING THIS EPISODE TO IDENTIFY CHANGES AND INTERVENE TO MINIMIZE COMPLICATIONS.] Future Scheduled Test PAIN MANAG EMENT; RN TO ASSESS AND TEACH, FLORAL ARTIST/BAND HEAD SAW OPERATOR TO OBSERVE AND TEACH AND PROVIDE EDUCATION ON PAIN MANAGEMENT TECHNIQUES. [code = PAIN MANAGEMENT; RN TO ASSESS AND TEACH, FLORAL ARTIST/BAND HEAD SAW OPERATOR TO OBSERVE AND TEACH AND PROVIDE EDUCATION ON PAIN MANAGEMENT TECHNIQUES.] Future Scheduled Test RISK FOR H OSPITALIZATION; RN TO ASSESS/TEACH, FLORAL ARTIST/BAND HEAD SAW OPERATOR TO OBSERVE/TEACH PATIENT/CAREGIVER ON RISK FOR HOSPITALIZATION/EMERGENCY ROOM VISITS, TEACH SIGNS AND SYMPTOMS THAT PUT PATIENT AT RISK, WHEN TO NOTIFY NURSE/PHYSICIAN OF COMPLICATIONS/DECLINE, AND WHEN TO CALL 911. [code = RISK FOR HOSPITALIZATION; RN TO ASSESS/TEACH, FLORAL ARTIST/BAND HEAD SAW OPERATOR TO OBSERVE/TEACH PATIENT/CAREGIVER ON RISK FOR HOSPITALIZATION/EMERGENCY ROOM VISITS, TEACH SIGNS AND SYMPTOMS THAT PUT PATIENT AT RISK, WHEN TO NOTIFY NURSE/PHYSICIAN OF COMPLICATIONS/DECLINE, AND WHEN TO CALL 911.] Future Scheduled Test CARDIOVASC ULAR SYSTEM; RN TO ASSESS/TEACH, BAND HEAD SAW OPERATOR/FLORAL ARTIST TO OBSERVE/TEACH RELATED TO ALTERED CARDIOVASCULAR STATUS TO MINIMIZE COMPLICATIONS AND REDUCE HOSPITALIZATION. [code = CARDIOVASCULAR SYSTEM; RN TO ASSESS/TEACH, BAND HEAD SAW OPERATOR/FLORAL ARTIST TO OBSERVE/TEACH RELATED TO ALTERED CARDIOVASCULAR STATUS TO MINIMIZE COMPLICATIONS AND REDUCE HOSPITALIZATION.] Future Scheduled Test HYPERTENSI ON MANAGEMENT; RN TO ASSESS AND TEACH, BAND HEAD SAW OPERATOR/FLORAL ARTIST TO OBSERVE AND TEACH WARNING SIGNS AND SYMPTOMS TO AVOID HOSPITALIZATION. [code = HYPERTENSION MANAGEMENT; RN TO ASSESS AND TEACH, BAND HEAD SAW OPERATOR/FLORAL ARTIST TO OBSERVE AND TEACH WARNING SIGNS AND SYMPTOMS TO AVOID HOSPITALIZATION.] Future Scheduled Test HEART FAIL URE MONITORING RN/FLORAL ARTIST/BAND HEAD SAW OPERATOR TO MONITOR PATIENT FOR SIGNS AND SYMPTOMS OF HEART FAILURE EXACERBATION, MONITOR FOR ADHERENCE WITH MEDICATION AND HEART FAILURE MANAGEMENT REGIMEN. [code = HEART FAILURE MONITORING RN/FLORAL ARTIST/BAND HEAD SAW OPERATOR TO MONITOR PATIENT FOR SIGNS AND SYMPTOMS OF HEART FAILURE EXACERBATION, MONITOR FOR ADHERENCE WITH MEDICATION AND HEART FAILURE MANAGEMENT REGIMEN.] Future Scheduled Test DIABETES M ONITORING RN/FLORAL ARTIST/BAND HEAD SAW OPERATOR TO MONITOR BLOOD SUGAR LOG FOR BLOOD SUGAR READINGS THAT ARE BEING CHECKED BY PATIENT, CAREGIVER NEEDED FOR SIGNS AND SYMPTOMS OF HYPER/HYPOGLYCEMIA. PATIENT THERAPEUTIC BLOOD SUGAR PARAMETERS ARE 70 - 300. REPORT BLOOD SUGARS OUT OF RANGE TO PHYSICIAN. NURSE MAY PERFORM FINGER STICK BLOOD GLUCOSE NEEDED FOR SIGNS AND SYMPTOMS OF HYPO AND HYPERGLYCEMIA. RN/FLORAL ARTIST/BAND HEAD SAW OPERATOR TO MONITOR ADHERENCE OF PATIENT/CAREGIVER PERFORMING DIABETIC FOOT CARE AND MAY PERFORM DIABETIC FOOT CARE PRN. RN/FLORAL ARTIST/BAND HEAD SAW OPERATOR TO MONITOR FOR ADHERENCE TO DIABETIC SELF-CARE AND MANAGEMENT INCLUDING MEDICATIONS. [code = DIABETES MONITORING RN/FLORAL ARTIST/BAND HEAD SAW OPERATOR TO MONITOR BLOOD SUGAR LOG FOR BLOOD SUGAR READINGS THAT ARE BEING CHECKED BY PATIENT, CAREGIVER NEEDED FOR SIGNS AND SYMPTOMS OF HYPER/HYPOGLYCEMIA. PATIENT THERAPEUTIC BLOOD SUGAR PARAMETERS ARE 70 - 300. REPORT BLOOD SUGARS OUT OF RANGE TO PHYSICIAN. NURSE MAY PERFORM FINGER STICK BLOOD GLUCOSE NEEDED FOR SIGNS AND SYMPTOMS OF HYPO AND HYPERGLYCEMIA. RN/FLORAL ARTIST/BAND HEAD SAW OPERATOR TO MONITOR ADHERENCE OF PATIENT/CAREGIVER PERFORMING DIABETIC FOOT CARE AND MAY PERFORM DIABETIC FOOT CARE PRN. RN/FLORAL ARTIST/BAND HEAD SAW OPERATOR TO MONITOR FOR ADHERENCE TO DIABETIC SELF-CARE AND MANAGEMENT INCLUDING MEDICATIONS.] Future Scheduled Test HYPOTENSIO N MANAGEMENT; RN TO ASSESS AND TEACH/ BAND HEAD SAW OPERATOR /FLORAL ARTIST TO OBSERVE AND TEACH WARNING SIGNS AND SYMPTOMS TO AVOID HOSPITALIZATION. [code = HYPOTENSION MANAGEMENT; RN TO ASSESS AND TEACH/ BAND HEAD SAW OPERATOR /FLORAL ARTIST TO OBSERVE AND TEACH WARNING SIGNS AND SYMPTOMS TO AVOID HOSPITALIZATION.] Future Scheduled Test ARRHYTHMIA MANAGEMENT; RN TO ASSESS AND TEACH, BAND HEAD SAW OPERATOR/FLORAL ARTIST TO OBSERVE AND TEACH WARNING SIGNS AND SYMPTOMS TO AVOID HOSPITALIZATION. [code = ARRHYTHMIA MANAGEMENT; RN TO ASSESS AND TEACH, BAND HEAD SAW OPERATOR/FLORAL ARTIST TO OBSERVE AND TEACH WARNING SIGNS AND SYMPTOMS TO AVOID HOSPITALIZATION.] Future Scheduled Test MEDICATION MANAGEMENT; RN/BAND HEAD SAW OPERATOR/FLORAL ARTIST TO REVIEW MEDICATIONS FOR INTERACTIONS, EFFECTIVENESS OF DRUG THERAPY, AND SIGNS/SYMPTOMS OF ADVERSE REACTIONS. MAY INSTRUCT AND REINFORCE MEDICATION TEACHING RELATED TO THE USE OF MEDICATIONS, DOSAGE, FREQUENCY, PURPOSE, SIDE EFFECTS, AND TO REPORT COMPLICATIONS. [code = MEDICATION MANAGEMENT; RN/BAND HEAD SAW OPERATOR/FLORAL ARTIST TO REVIEW MEDICATIONS FOR INTERACTIONS, EFFECTIVENESS OF [...] EVAL UATE, OBSERVE / ASSESS, AND MONITOR, CASTING AND PASTING SUPERVISOR TO OBSERVE AND MONITOR, PROVIDE SKILLED THERAPEUTIC INTERVENTION, ACTIVITY, EDUCATION, AND TRAINING TO ADDRESS GEN. WEAKNESS, POOR OVERALL ACTIVITY TOLERANCE, AND FUNCTIONAL LIMITATIONS IMPACTING SAFETY AND INDEPENDENCE. BED MOBILITY (PT/CASTING AND PASTING SUPERVISOR) PT/CASTING AND PASTING SUPERVISOR TO PROVIDE GAIT TRAINING FOR IMPROVED MOBILITY AND /OR TO NORMALIZE GAIT PATTERN THERAPEUTIC EXERCISES AND ESTABLISHING A HOME EXERCISE PROGRAM (PT/CASTING AND PASTING SUPERVISOR) PT/CASTING AND PASTING SUPERVISOR TO PROVIDE STAIR TRAINING PT / CASTING AND PASTING SUPERVISOR TO MONITOR AND EDUCATE ON OXYGEN SATURATION DURING ADLS/IADLS, NOTIFY PHYSICIAN AND/OR THE RN CLINICAL IMPORT/EXPORT FREIGHT FORWARDER FOR PHYSICIAN NOTIFICATION AND IF O2 SATS BELOW PHYSICIAN ORDERED PARAMETERS AFTER 10 MIN OF REST PT / CASTING AND PASTING SUPERVISOR TO OBSERVE FOR EARLY SIGNS AND SYMPTOMS OF DEPRESSION OR DEPRESSION GETTING WORSE AND TO EDUCATE ON HOW TO FIND HELP. PT / CASTING AND PASTING SUPERVISOR MAY EDUCATE ON PAIN MANAGEMENT CLINICALLY INDICATED, INCLUDING NON-PHARMACOLOGICAL PAIN REDUCTION TECHNIQUES PT / CASTING AND PASTING SUPERVISOR TO MONITOR FOR HYPO/HYPERGLYCEMIA AND CONDUCT ROUTINE FOOT INSPECTIONS. RECORD PATIENT REPORTED BLOOD SUGAR LEVELS AND NOTIFY PHYSICIAN AND/OR THE RN CLINICAL IMPORT/EXPORT FREIGHT FORWARDER FOR PHYSICIAN NOTIFICATION IF BLOOD SUGAR LEVELS ARE OUTSIDE ORDERED PARAMETERS. TEACH PATIENT/CAREGIVER ON DAILY FOOT INSPECTIONS PT / CASTING AND PASTING SUPERVISOR TO INSTRUCT PATIENT/CAREGIVER ON RISK FOR HOSPITALIZATION/EMERGENCY ROOM VISITS, TEACH SIGNS AND SYMPTOMS THAT PUT PATIENT AT RISK, WHEN TO NOTIFY NURSE/PHYSICIAN OF COMPLICATIONS/DECLINE, AND WHEN TO CALL 911. PT/CASTING AND PASTING SUPERVISOR TO EDUCATE ON ARTHRITIS SELF-MANAGEMENT PT / CASTING AND PASTING SUPERVISOR TO EDUCATE ON HEART FAILURE SELF-MANAGEMENT PT / CASTING AND PASTING SUPERVISOR TO EDUCATE ON HYPERTENSION SELF-MANAGEMENT PT TO ASSESS / CASTING AND PASTING SUPERVISOR TO MONITOR CARDIO/RESPIRATORY SYSTEM; AND NOTIFY THE PHYSICIAN AND/OR THE RN CLINICAL IMPORT/EXPORT FREIGHT FORWARDER FOR PHYSICIAN NOTIFICATION FOR EARLY SIGNS AND SYMPTOMS OF EXACERBATION OR DETERIORATION. PT / CASTING AND PASTING SUPERVISOR TO EDUCATE ON ATRIAL FIBRILLATION SELF-MANAGEMENT. PT / CASTING AND PASTING SUPERVISOR TO EDUCATE ON PNEUMONIA / ASPIRATION PNEUMONIA SELF-MANAGEMENT. PT/CASTING AND PASTING SUPERVISOR TO IDENTIFY FALL RISK FACTORS; EDUCATE THE PATIENT/CAREGIVER ON WAYS TO REDUCE FALL RISK FACTORS AND ESTABLISH HOME EXERCISE PROGRAM TO MINIMIZE FALL RISK. MAY TEACH THE PATIENT FLOOR RECOVERY WHEN CLINICALLY APPROPRIATE [code = PT TO EVALUATE, OBSERVE / ASSESS, AND MONITOR, CASTING AND PASTING SUPERVISOR TO OBSERVE AND MONITOR, PROVIDE SKILLED THERAPEUTIC INTERVENTION, ACTIVITY, EDUCATION, AND TRAINING TO ADDRESS GEN. WEAKNESS, POOR OVERALL ACTIVITY TOLERANCE, AND FUNCTIONAL LIMITATIONS IMPACTING SAFETY AND INDEPENDENCE. BED MOBILITY (PT/CASTING AND PASTING SUPERVISOR) PT/CASTING AND PASTING SUPERVISOR TO PROVIDE GAIT TRAINING FOR IMPROVED MOBILITY AND /OR TO NORMALIZE GAIT PATTERN THERAPEUTIC EXERCISES AND ESTABLISHING A HOME EXERCISE PROGRAM (PT/CASTING AND PASTING SUPERVISOR) PT/CASTING AND PASTING SUPERVISOR TO PROVIDE STAIR TRAINING PT / CASTING AND PASTING SUPERVISOR TO MONITOR AND EDUCATE ON OXYGEN SATURATION DURING ADLS/IADLS, NOTIFY PHYSICIAN AND/OR THE RN CLINICAL IMPORT/EXPORT FREIGHT FORWARDER FOR PHYSICIAN NOTIFICATION AND IF O2 SATS BELOW PHYSICIAN ORDERED PARAMETERS AFTER 10 MIN OF REST PT / CASTING AND PASTING SUPERVISOR TO OBSERVE FOR EARLY SIGNS AND SYMPTOMS OF DEPRESSION OR DEPRESSION GETTING WORSE AND TO EDUCATE ON HOW TO FIND HELP. PT / CASTING AND PASTING SUPERVISOR MAY EDUCATE ON PAIN MANAGEMENT CLINICALLY INDICATED, INCLUDING NON-PHARMACOLOGICAL PAIN REDUCTION TECHNIQUES PT / CASTING AND PASTING SUPERVISOR TO MONITOR FOR HYPO/HYPERGLYCEMIA AND CONDUCT ROUTINE FOOT INSPECTIONS. RECORD PATIENT REPORTED BLOOD SUGAR LEVELS AND NOTIFY PHYSICIAN AND/OR THE RN CLINICAL IMPORT/EXPORT FREIGHT FORWARDER FOR PHYSICIAN NOTIFICATION IF BLOOD SUGAR LEVELS ARE OUTSIDE ORDERED PARAMETERS. TEACH PATIENT/CAREGIVER ON DAILY FOOT INSPECTIONS PT / CASTING AND PASTING SUPERVISOR TO INSTRUCT PATIENT/CAREGIVER ON RISK FOR HOSPITALIZATION/EMERGENCY ROOM VISITS, TEACH SIGNS AND SYMPTOMS THAT PUT PATIENT AT RISK, WHEN TO NOTIFY NURSE/PHYSICIAN OF COMPLICATIONS/DECLINE, AND WHEN TO CALL 911. PT/CASTING AND PASTING SUPERVISOR TO EDUCATE ON ARTHRITIS SELF-MANAGEMENT PT / CASTING AND PASTING SUPERVISOR TO EDUCATE ON HEART FAILURE SELF-MANAGEMENT PT / CASTING AND PASTING SUPERVISOR TO EDUCATE ON HYPERTENSION SELF-MANAGEMENT PT TO ASSESS / CASTING AND PASTING SUPERVISOR TO MONITOR CARDIO/RESPIRATORY SYSTEM; AND NOTIFY THE PHYSICIAN AND/OR THE RN CLINICAL IMPORT/EXPORT FREIGHT FORWARDER FOR PHYSICIAN NOTIFICATION FOR EARLY SIGNS AND SYMPTOMS OF EXACERBATION OR DETERIORATION. PT / CASTING AND PASTING SUPERVISOR TO EDUCATE ON ATRIAL FIBRILLATION SELF-MANAGEMENT. PT / CASTING AND PASTING SUPERVISOR TO EDUCATE ON PNEUMONIA / ASPIRATION PNEUMONIA SELF-MANAGEMENT. PT/CASTING AND PASTING SUPERVISOR TO IDENTIFY FALL RISK FACTORS; EDUCATE THE PATIENT/CAREGIVER ON WAYS TO REDUCE FALL RISK FACTORS AND ESTABLISH HOME EXERCISE PROGRAM TO MINIMIZE FALL RISK. MAY TEACH THE PATIENT FLOOR RECOVERY WHEN CLINICALLY APPROPRIATE] Future Scheduled Test AGENCY MAY PERFORM A RESUMPTION OF CARE VISIT FOLLOWING ANY HOSPITAL ADMISSION. OT TO EVALUATE, OBSERVE / ASSESS, AND MONITOR, PSYCHOLOGIST RESEARCH ASSISTANT TO OBSERVE AND MONITOR, PROVIDE SKILLED THERAPEUTIC INTERVENTION, ACTIVITY, EDUCATION, AND TRAINING TO ADDRESS SAFETY AND INDEPENDENCE OF ADLS AND FUNCTIONAL TRANSFERS IN HOME ENVIRONMENT. ACTIVITIES OF DAILY LIVING (OT/MARIANNE) THERAPEUTIC EXERCISE (OT/PSYCHOLOGIST RESEARCH ASSISTANT) ENERGY CONSERVATION/ACTIVITY DEMAND (OT/PSYCHOLOGIST RESEARCH ASSISTANT) OT/PSYCHOLOGIST RESEARCH ASSISTANT TO MONITOR AND EDUCATE ON OXYGEN SATURATION DURING ADLS/IADLS, NOTIFY PHYSICIAN AND/OR THE RN CLINICAL IMPORT/EXPORT FREIGHT FORWARDER FOR PHYSICIAN NOTIFICATION AND IF O2 SATS BELOW 90% AFTER 10 MIN OF REST. OT / PSYCHOLOGIST RESEARCH ASSISTANT TO IDENTIFY FALL RISK FACTORS; EDUCATE THE PATIENT/CAREGIVER ON WAYS TO REDUCE FALL RISK FACTORS AND ESTABLISH HOME EXERCISE PROGRAM TO MINIMIZE FALL RISK. MAY TEACH THE PATIENT FLOOR RECOVERY WHEN CLINICALLY APPROPRIATE. OT/PSYCHOLOGIST RESEARCH ASSISTANT TO EDUCATE ON HYPERTENSION SELF-MANAGEMENT OT/MARIANNE TO EDUCATE ON ATRIAL FIBRILLATION SELF-MANAGEMENT. [code = AGENCY MAY PERFORM A RESUMPTION OF CARE VISIT FOLLOWING ANY HOSPITAL ADMISSION. OT TO EVALUATE, OBSERVE / ASSESS, AND MONITOR, PSYCHOLOGIST RESEARCH ASSISTANT TO OBSERVE AND MONITOR, PROVIDE SKILLED THERAPEUTIC INTERVENTION, ACTIVITY, EDUCATION, AND TRAINING TO ADDRESS SAFETY AND INDEPENDENCE OF ADLS AND FUNCTIONAL TRANSFERS IN HOME ENVIRONMENT. ACTIVITIES OF DAILY LIVING (OT/MARIANNE) THERAPEUTIC EXERCISE (OT/PSYCHOLOGIST RESEARCH ASSISTANT) ENERGY CONSERVATION/ACTIVITY DEMAND (OT/MARIANNE) OT/PSYCHOLOGIST RESEARCH ASSISTANT TO MONITOR AND EDUCATE ON OXYGEN SATURATION DURING ADLS/IADLS, NOTIFY PHYSICIAN AND/OR THE RN CLINICAL IMPORT/EXPORT FREIGHT FORWARDER FOR PHYSICIAN NOTIFICATION AND IF O2 SATS BELOW 90% AFTER 10 MIN OF REST. OT / MARIANNE TO IDENTIFY FALL RISK FACTORS; EDUCATE THE PATIENT/CAREGIVER ON WAYS TO REDUCE FALL RISK FACTORS AND ESTABLISH HOME EXERCISE PROGRAM TO MINIMIZE FALL RISK. MAY TEACH THE PATIENT FLOOR RECOVERY WHEN CLINICALLY APPROPRIATE. OT/PSYCHOLOGIST RESEARCH ASSISTANT TO EDUCATE ON HYPERTENSION SELF-MANAGEMENT OT/MARIANNE TO [...] End Date/Time Encounter Type Admission Type Attending [facility] Care Department Encounter ID Discharge Date Discharge Status Discharge Condition Discharge Reason Percent Goals Met 2025-02-07 00:00:00 2025-04-07 00:00:00 Outpatient NEW ADMISSION [facility] [id number]
--- OUTSIDE RECORDS SUMMARY | 2025-04-06 18:00 | XMS_ITS | Clinical Summary ---
Author Organization Unknown Care Team Providers Care School Guard Name Role Phone DIGNA ARIEL, ESTRELLA Unavailable Unava dinora STOKES RN, FRANKIE Unavailable Unavailabl e KARI PT, DIDI Unavailable Unavailable NAT SUPERVISOR INTELLIGENCE ANALYST, GAUDENCIO Unavailable Unavailabl e RADHA OT, ROLANDO Unavailable Unavailable JOANNE STEVEN, HATTIE Unavailable Unavailable Payers Payer Name Policy Type Policy Number Effective Date Expira tion Date MEDICARE.[facility] [id number] Problems Condition Name Condition Details Condition Category Status Onset Date Resolution Date Last Treatment Date Treating Clinician Comments 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 02-07 [...] OF PNEUMONIA (RECURRENT) Active 02-07 00:00: 00 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) USE OF SYSTEMIC STEROIDS Active 02-07 [...] 80 mg tablet 02-07 00:00: 00 Yes [id number] CHOLESTEROL 1 tablet DAILY 1 tablet DAILY (route: oral) Med Classific ation: Cardiovas cular Therapy Agents digoxin 125 mcg (0.125 mg) tablet 02-07 00:00: 00 02-21 23:59 :00 No [id number] HEART RHYTHM 1 tablet DAILY 1 tablet DAILY (route: oral) Med Classific ation: Cardiovas cular Therapy Agents escitalopra m 10 mg tablet 02-07 00:00: 00 Yes [id number] MOOD 1 tablet DAILY 1 tablet DAILY (route: oral) Med Classific ation: Central Nervous System Agents ezetimibe 10 mg tablet 02-07 00:00: 00 Yes [id number] CHOLESTEROL 1 tablet DAILY 1 tablet DAILY (route: oral) Med Classific ation: Cardiovas cular Therapy Agents metoprolol succinate ER 25 mg tablet,exte nded release 24 hr 02-07 00:00: 00 02-21 23:59 :00 No [id number] BLOOD PRESSURE 0.5 tablet DAILY 0.5 tablet DAILY (route: oral) Med Classific ation: Cardiovas cular Therapy Agents pantoprazol e 40 mg tablet,joão yed release 02-07 00:00: 00 02-21 23:59 :00 No [id number] STOMACH ACID 1 tablet DAILY 1 tablet DAILY (route: oral) Med Classific ation: Gastroint estinal Therapy Agents prednisone 5 mg tablet 02-07 00:00: 00 Yes [id number] ADRENAL INSUFFICIEN CY 1 tablet DAILY 1 tablet DAILY (route: oral) Med Classific ation: Endocrine spironolact one 25 mg tablet 02-07 00:00: 00 Yes [id number] FLUID RETENTION 0.5 tablet DAILY 0.5 tablet DAILY (route: oral) Med Classific ation: Cardiovas cular Therapy Agents tamsulosin 0.4 mg capsule 02-07 00:00: 00 02-21 23:59 :00 No [id number] URINARY HEALTH 1 capsule DAILY 1 capsule DAILY (route: oral) Med Classific ation: Genitouri nary Therapy acetaminoph en 325 mg tablet 2024-05 00:00: 00 Yes [id number] PAIN 2 tablet 2 TIMES DAILY 2 tablet 2 TIMES DAILY (route: oral) Med Classific ation: Analgesic , Anti-infl ammatory or Antipyret ic aspirin 81 mg tablet 2024-05 00:00: 00 Yes [id number] ANTICOAGULA NT 1 tablet DAILY 1 tablet DAILY (route: oral) Med Classific ation: Hematolog ical Agents ipratropium 0.5 mg-albutero l 3 mg (2.5 mg base)/3 mL nebulizatio n soln 2024-05 00:00: 00 Yes [id number] COPD 3 mL EVERY 6 HOURS 3 mL EVERY 6 HOURS (route: inhalation ) Med Classific ation: Respirato ry Therapy Agents Lanoxin 62.5 mcg (0.0625 mg) tablet 2024-05 00:00: 00 Yes [id number] CHF 1 tablet DAILY 1 tablet DAILY (route: oral) Med Classific ation: Cardiovas cular Therapy Agents Lasix 20 mg tablet 2024-05 00:00: 00 Yes [id number] CHF 1 tablet DAILY 1 tablet DAILY (route: oral) Med Classific ation: Cardiovas cular Therapy Agents Toprol XL 25 mg tablet,exte nded release 2024-05 00:00: 00 Yes [id number] BP 25 mg DAILY 25 mg DAILY [...] SYSTEM MANAGEMENT; RN TO ASSESS AND TEACH, WINCH DERRICK OPERATOR/FRAME ASSEMBLER TO OBSERVE AND TEACH RELATED TO ALTERED RESPIRATORY STATUS TO MINIMIZE COMPLICATIONS AND REDUCE HOSPITALIZATION. [code = SN 1WK9 PT 1WK1 OT EFFECTIVE 02/10/2025K1 RESPIRATORY SYSTEM MANAGEMENT; RN TO ASSESS AND TEACH, WINCH DERRICK OPERATOR/FRAME ASSEMBLER TO OBSERVE AND TEACH RELATED TO ALTERED RESPIRATORY STATUS TO MINIMIZE COMPLICATIONS AND REDUCE HOSPITALIZATION.] Future Scheduled Test TRACHEOSTO MY CARE MANAGEMENT; RN/WINCH DERRICK OPERATOR/FRAME ASSEMBLER TO INSTRUCT PATIENT/CAREGIVER ON CARE AND MANAGEMENT OF TRACHEOSTOMY. RN/ WINCH DERRICK OPERATOR/FRAME ASSEMBLER TO PROVIDE SKILLED TEACHING ON TRACH COLLAR SUCTIONING PRN WITH 14 FR SUCTION CATHETER PER PATIENT TRACH CARE WITH INNER CANNULA: REMOVE INNER CANNULA, CLEANSE WITH NORMAL SALINE AND OR STERILE WATER AND REINSERT NON-DISPOSABLE CANNULA SIZE OF INNER CANNULA 5 BROOKS [code = TRACHEOSTOMY CARE MANAGEMENT; RN/WINCH DERRICK OPERATOR/FRAME ASSEMBLER TO INSTRUCT PATIENT/CAREGIVER ON CARE AND MANAGEMENT OF TRACHEOSTOMY. RN/ WINCH DERRICK OPERATOR/FRAME ASSEMBLER TO PROVIDE SKILLED TEACHING ON TRACH COLLAR SUCTIONING PRN WITH 14 FR SUCTION CATHETER PER PATIENT TRACH CARE WITH INNER CANNULA: REMOVE INNER CANNULA, CLEANSE WITH NORMAL SALINE AND OR STERILE WATER AND REINSERT NON-DISPOSABLE CANNULA SIZE OF INNER CANNULA 5 BROOKS] Future Scheduled Test FALL REDUC TION MANAGEMENT; RN TO ASSESS AND OBSERVE, WINCH DERRICK OPERATOR/FRAME ASSEMBLER TO OBSERVE FALL RISK FACTORS AND EDUCATE PATIENT/CAREGIVER ON STRATEGIES TO MINIMIZE THE RISK OF FALLING. [code = FALL REDUCTION MANAGEMENT; RN TO ASSESS AND OBSERVE, WINCH DERRICK OPERATOR/FRAME ASSEMBLER TO OBSERVE FALL RISK FACTORS AND EDUCATE PATIENT/CAREGIVER ON STRATEGIES TO MINIMIZE THE RISK OF FALLING.] Future Scheduled Test ANEMIA MAN AGEMENT; RN TO ASSESS AND TEACH, FRAME ASSEMBLER/WINCH DERRICK OPERATOR TO OBSERVE AND TEACH AND PROVIDE EDUCATION ON ANEMIA. [code = ANEMIA MANAGEMENT; RN TO ASSESS AND TEACH, FRAME ASSEMBLER/WINCH DERRICK OPERATOR TO OBSERVE AND TEACH AND PROVIDE EDUCATION ON ANEMIA.] Future Scheduled Test RN TO OBSE RVE, ASSESS, EVALUATE, AND DEVELOP AN INDIVIDUALIZED PLAN OF CARE. AGENCY MAY ACCEPT ORDERS FROM CONSULTING PHYSICIANS RN TO OBSERVE AND ASSESS, WINCH DERRICK OPERATOR/FRAME ASSEMBLER TO OBSERVE FOR RISK FOR FALLS AND INSTRUCT IN FALL PREVENTION, HOME SAFETY, MEDICATION MANAGEMENT, INFECTION PREVENTION, AND NUTRITION MANAGEMENT. RN/WINCH DERRICK OPERATOR/FRAME ASSEMBLER NURSE MAY PERFORM O2 SATURATION LEVEL ON ADMISSION AND PRN FOR RN TO ASSESS/WINCH DERRICK OPERATOR TO OBSERVE PATIENT, WITH NOTIFICATION TO THE PHYSICIAN IF SATURATION IS 90% IN THE ABSENCE OF MORE SPECIFIC PARAMETERS FROM THE PHYSICIAN. AGENCY MAY PERFORM A RESUMPTION OF CARE VISIT FOLLOWING ANY HOSPITAL ADMISSION. RN/WINCH DERRICK OPERATOR/FRAME ASSEMBLER TO MONITOR CO-MORBID CONDITIONS LISTED ON THE PLAN OF CARE AND ANY NEW CONDITIONS THAT PRESENT THEMSELVES DURING THIS EPISODE TO IDENTIFY CHANGES AND INTERVENE TO MINIMIZE COMPLICATIONS. [code = RN TO OBSERVE, ASSESS, EVALUATE, AND DEVELOP AN INDIVIDUALIZED PLAN OF CARE. AGENCY MAY ACCEPT ORDERS FROM CONSULTING PHYSICIANS RN TO OBSERVE AND ASSESS, WINCH DERRICK OPERATOR/FRAME ASSEMBLER TO OBSERVE FOR RISK FOR FALLS AND INSTRUCT IN FALL PREVENTION, HOME SAFETY, MEDICATION MANAGEMENT, INFECTION PREVENTION, AND NUTRITION MANAGEMENT. RN/WINCH DERRICK OPERATOR/FRAME ASSEMBLER NURSE MAY PERFORM O2 SATURATION LEVEL ON ADMISSION AND PRN FOR RN TO ASSESS/WINCH DERRICK OPERATOR TO OBSERVE PATIENT, WITH NOTIFICATION TO THE PHYSICIAN IF SATURATION IS 90% IN THE ABSENCE OF MORE SPECIFIC PARAMETERS FROM THE PHYSICIAN. AGENCY MAY PERFORM A RESUMPTION OF CARE VISIT FOLLOWING ANY HOSPITAL ADMISSION. RN/WINCH DERRICK OPERATOR/FRAME ASSEMBLER TO MONITOR CO-MORBID CONDITIONS LISTED ON THE PLAN OF CARE AND ANY NEW CONDITIONS THAT PRESENT THEMSELVES DURING THIS EPISODE TO IDENTIFY CHANGES AND INTERVENE TO MINIMIZE COMPLICATIONS.] Future Scheduled Test PAIN MANAG EMENT; RN TO ASSESS AND TEACH, FRAME ASSEMBLER/WINCH DERRICK OPERATOR TO OBSERVE AND TEACH AND PROVIDE EDUCATION ON PAIN MANAGEMENT TECHNIQUES. [code = PAIN MANAGEMENT; RN TO ASSESS AND TEACH, FRAME ASSEMBLER/WINCH DERRICK OPERATOR TO OBSERVE AND TEACH AND PROVIDE EDUCATION ON PAIN MANAGEMENT TECHNIQUES.] Future Scheduled Test RISK FOR H OSPITALIZATION; RN TO ASSESS/TEACH, FRAME ASSEMBLER/WINCH DERRICK OPERATOR TO OBSERVE/TEACH PATIENT/CAREGIVER ON RISK FOR HOSPITALIZATION/EMERGENCY ROOM VISITS, TEACH SIGNS AND SYMPTOMS THAT PUT PATIENT AT RISK, WHEN TO NOTIFY NURSE/PHYSICIAN OF COMPLICATIONS/DECLINE, AND WHEN TO CALL 911. [code = RISK FOR HOSPITALIZATION; RN TO ASSESS/TEACH, FRAME ASSEMBLER/WINCH DERRICK OPERATOR TO OBSERVE/TEACH PATIENT/CAREGIVER ON RISK FOR HOSPITALIZATION/EMERGENCY ROOM VISITS, TEACH SIGNS AND SYMPTOMS THAT PUT PATIENT AT RISK, WHEN TO NOTIFY NURSE/PHYSICIAN OF COMPLICATIONS/DECLINE, AND WHEN TO CALL 911.] Future Scheduled Test CARDIOVASC ULAR SYSTEM; RN TO ASSESS/TEACH, WINCH DERRICK OPERATOR/FRAME ASSEMBLER TO OBSERVE/TEACH RELATED TO ALTERED CARDIOVASCULAR STATUS TO MINIMIZE COMPLICATIONS AND REDUCE HOSPITALIZATION. [code = CARDIOVASCULAR SYSTEM; RN TO ASSESS/TEACH, WINCH DERRICK OPERATOR/FRAME ASSEMBLER TO OBSERVE/TEACH RELATED TO ALTERED CARDIOVASCULAR STATUS TO MINIMIZE COMPLICATIONS AND REDUCE HOSPITALIZATION.] Future Scheduled Test HYPERTENSI ON MANAGEMENT; RN TO ASSESS AND TEACH, WINCH DERRICK OPERATOR/FRAME ASSEMBLER TO OBSERVE AND TEACH WARNING SIGNS AND SYMPTOMS TO AVOID HOSPITALIZATION. [code = HYPERTENSION MANAGEMENT; RN TO ASSESS AND TEACH, WINCH DERRICK OPERATOR/FRAME ASSEMBLER TO OBSERVE AND TEACH WARNING SIGNS AND SYMPTOMS TO AVOID HOSPITALIZATION.] Future Scheduled Test HEART FAIL URE MONITORING RN/FRAME ASSEMBLER/WINCH DERRICK OPERATOR TO MONITOR PATIENT FOR SIGNS AND SYMPTOMS OF HEART FAILURE EXACERBATION, MONITOR FOR ADHERENCE WITH MEDICATION AND HEART FAILURE MANAGEMENT REGIMEN. [code = HEART FAILURE MONITORING RN/FRAME ASSEMBLER/WINCH DERRICK OPERATOR TO MONITOR PATIENT FOR SIGNS AND SYMPTOMS OF HEART FAILURE EXACERBATION, MONITOR FOR ADHERENCE WITH MEDICATION AND HEART FAILURE MANAGEMENT REGIMEN.] Future Scheduled Test DIABETES M ONITORING RN/FRAME ASSEMBLER/WINCH DERRICK OPERATOR TO MONITOR BLOOD SUGAR LOG FOR BLOOD SUGAR READINGS THAT ARE BEING CHECKED BY PATIENT, CAREGIVER NEEDED FOR SIGNS AND SYMPTOMS OF HYPER/HYPOGLYCEMIA. PATIENT THERAPEUTIC BLOOD SUGAR PARAMETERS ARE 70 - 300. REPORT BLOOD SUGARS OUT OF RANGE TO PHYSICIAN. NURSE MAY PERFORM FINGER STICK BLOOD GLUCOSE NEEDED FOR SIGNS AND SYMPTOMS OF HYPO AND HYPERGLYCEMIA. RN/FRAME ASSEMBLER/WINCH DERRICK OPERATOR TO MONITOR ADHERENCE OF PATIENT/CAREGIVER PERFORMING DIABETIC FOOT CARE AND MAY PERFORM DIABETIC FOOT CARE PRN. RN/FRAME ASSEMBLER/WINCH DERRICK OPERATOR TO MONITOR FOR ADHERENCE TO DIABETIC SELF-CARE AND MANAGEMENT INCLUDING MEDICATIONS. [code = DIABETES MONITORING RN/FRAME ASSEMBLER/WINCH DERRICK OPERATOR TO MONITOR BLOOD SUGAR LOG FOR BLOOD SUGAR READINGS THAT ARE BEING CHECKED BY PATIENT, CAREGIVER NEEDED FOR SIGNS AND SYMPTOMS OF HYPER/HYPOGLYCEMIA. PATIENT THERAPEUTIC BLOOD SUGAR PARAMETERS ARE 70 - 300. REPORT BLOOD SUGARS OUT OF RANGE TO PHYSICIAN. NURSE MAY PERFORM FINGER STICK BLOOD GLUCOSE NEEDED FOR SIGNS AND SYMPTOMS OF HYPO AND HYPERGLYCEMIA. RN/FRAME ASSEMBLER/WINCH DERRICK OPERATOR TO MONITOR ADHERENCE OF PATIENT/CAREGIVER PERFORMING DIABETIC FOOT CARE AND MAY PERFORM DIABETIC FOOT CARE PRN. RN/FRAME ASSEMBLER/WINCH DERRICK OPERATOR TO MONITOR FOR ADHERENCE TO DIABETIC SELF-CARE AND MANAGEMENT INCLUDING MEDICATIONS.] Future Scheduled Test HYPOTENSIO N MANAGEMENT; RN TO ASSESS AND TEACH/ WINCH DERRICK OPERATOR /FRAME ASSEMBLER TO OBSERVE AND TEACH WARNING SIGNS AND SYMPTOMS TO AVOID HOSPITALIZATION. [code = HYPOTENSION MANAGEMENT; RN TO ASSESS AND TEACH/ WINCH DERRICK OPERATOR /FRAME ASSEMBLER TO OBSERVE AND TEACH WARNING SIGNS AND SYMPTOMS TO AVOID HOSPITALIZATION.] Future Scheduled Test ARRHYTHMIA MANAGEMENT; RN TO ASSESS AND TEACH, WINCH DERRICK OPERATOR/FRAME ASSEMBLER TO OBSERVE AND TEACH WARNING SIGNS AND SYMPTOMS TO AVOID HOSPITALIZATION. [code = ARRHYTHMIA MANAGEMENT; RN TO ASSESS AND TEACH, WINCH DERRICK OPERATOR/FRAME ASSEMBLER TO OBSERVE AND TEACH WARNING SIGNS AND SYMPTOMS TO AVOID HOSPITALIZATION.] Future Scheduled Test MEDICATION MANAGEMENT; RN/WINCH DERRICK OPERATOR/FRAME ASSEMBLER TO REVIEW MEDICATIONS FOR INTERACTIONS, EFFECTIVENESS OF DRUG THERAPY, AND SIGNS/SYMPTOMS OF ADVERSE REACTIONS. MAY INSTRUCT AND REINFORCE MEDICATION TEACHING RELATED TO THE USE OF MEDICATIONS, DOSAGE, FREQUENCY, PURPOSE, SIDE EFFECTS, AND TO REPORT COMPLICATIONS. [code = MEDICATION MANAGEMENT; RN/WINCH DERRICK OPERATOR/FRAME ASSEMBLER TO REVIEW MEDICATIONS FOR INTERACTIONS, EFFECTIVENESS [...] UATE, OBSERVE / ASSESS, AND MONITOR, SUPERVISOR INTELLIGENCE ANALYST TO OBSERVE AND MONITOR, PROVIDE SKILLED THERAPEUTIC INTERVENTION, ACTIVITY, EDUCATION, AND TRAINING TO ADDRESS GEN. WEAKNESS, POOR OVERALL ACTIVITY TOLERANCE, AND FUNCTIONAL LIMITATIONS IMPACTING SAFETY AND INDEPENDENCE. BED MOBILITY (PT/SUPERVISOR INTELLIGENCE ANALYST) PT/SUPERVISOR INTELLIGENCE ANALYST TO PROVIDE GAIT TRAINING FOR IMPROVED MOBILITY AND /OR TO NORMALIZE GAIT PATTERN THERAPEUTIC EXERCISES AND ESTABLISHING A HOME EXERCISE PROGRAM (PT/SUPERVISOR INTELLIGENCE ANALYST) PT/SUPERVISOR INTELLIGENCE ANALYST TO PROVIDE STAIR TRAINING PT / SUPERVISOR INTELLIGENCE ANALYST TO MONITOR AND EDUCATE ON OXYGEN SATURATION DURING ADLS/IADLS, NOTIFY PHYSICIAN AND/OR THE RN CLINICAL ACTUARIAL DIRECTOR FOR PHYSICIAN NOTIFICATION AND IF O2 SATS BELOW PHYSICIAN ORDERED PARAMETERS AFTER 10 MIN OF REST PT / SUPERVISOR INTELLIGENCE ANALYST TO OBSERVE FOR EARLY SIGNS AND SYMPTOMS OF DEPRESSION OR DEPRESSION GETTING WORSE AND TO EDUCATE ON HOW TO FIND HELP. PT / SUPERVISOR INTELLIGENCE ANALYST MAY EDUCATE ON PAIN MANAGEMENT CLINICALLY INDICATED, INCLUDING NON-PHARMACOLOGICAL PAIN REDUCTION TECHNIQUES PT / SUPERVISOR INTELLIGENCE ANALYST TO MONITOR FOR HYPO/HYPERGLYCEMIA AND CONDUCT ROUTINE FOOT INSPECTIONS. RECORD PATIENT REPORTED BLOOD SUGAR LEVELS AND NOTIFY PHYSICIAN AND/OR THE RN CLINICAL ACTUARIAL DIRECTOR FOR PHYSICIAN NOTIFICATION IF BLOOD SUGAR LEVELS ARE OUTSIDE ORDERED PARAMETERS. TEACH PATIENT/CAREGIVER ON DAILY FOOT INSPECTIONS PT / SUPERVISOR INTELLIGENCE ANALYST TO INSTRUCT PATIENT/CAREGIVER ON RISK FOR HOSPITALIZATION/EMERGENCY ROOM VISITS, TEACH SIGNS AND SYMPTOMS THAT PUT PATIENT AT RISK, WHEN TO NOTIFY NURSE/PHYSICIAN OF COMPLICATIONS/DECLINE, AND WHEN TO CALL 911. PT/SUPERVISOR INTELLIGENCE ANALYST TO EDUCATE ON ARTHRITIS SELF-MANAGEMENT PT / SUPERVISOR INTELLIGENCE ANALYST TO EDUCATE ON HEART FAILURE SELF-MANAGEMENT PT / SUPERVISOR INTELLIGENCE ANALYST TO EDUCATE ON HYPERTENSION SELF-MANAGEMENT PT TO ASSESS / SUPERVISOR INTELLIGENCE ANALYST TO MONITOR CARDIO/RESPIRATORY SYSTEM; AND NOTIFY THE PHYSICIAN AND/OR THE RN CLINICAL ACTUARIAL DIRECTOR FOR PHYSICIAN NOTIFICATION FOR EARLY SIGNS AND SYMPTOMS OF EXACERBATION OR DETERIORATION. PT / SUPERVISOR INTELLIGENCE ANALYST TO EDUCATE ON ATRIAL FIBRILLATION SELF-MANAGEMENT. PT / SUPERVISOR INTELLIGENCE ANALYST TO EDUCATE ON PNEUMONIA / ASPIRATION PNEUMONIA SELF-MANAGEMENT. PT/SUPERVISOR INTELLIGENCE ANALYST TO IDENTIFY FALL RISK FACTORS; EDUCATE THE PATIENT/CAREGIVER ON WAYS TO REDUCE FALL RISK FACTORS AND ESTABLISH HOME EXERCISE PROGRAM TO MINIMIZE FALL RISK. MAY TEACH THE PATIENT FLOOR RECOVERY WHEN CLINICALLY APPROPRIATE [code = PT TO EVALUATE, OBSERVE / ASSESS, AND MONITOR, SUPERVISOR INTELLIGENCE ANALYST TO OBSERVE AND MONITOR, PROVIDE SKILLED THERAPEUTIC INTERVENTION, ACTIVITY, EDUCATION, AND TRAINING TO ADDRESS GEN. WEAKNESS, POOR OVERALL ACTIVITY TOLERANCE, AND FUNCTIONAL LIMITATIONS IMPACTING SAFETY AND INDEPENDENCE. BED MOBILITY (PT/SUPERVISOR INTELLIGENCE ANALYST) PT/SUPERVISOR INTELLIGENCE ANALYST TO PROVIDE GAIT TRAINING FOR IMPROVED MOBILITY AND /OR TO NORMALIZE GAIT PATTERN THERAPEUTIC EXERCISES AND ESTABLISHING A HOME EXERCISE PROGRAM (PT/SUPERVISOR INTELLIGENCE ANALYST) PT/SUPERVISOR INTELLIGENCE ANALYST TO PROVIDE STAIR TRAINING PT / SUPERVISOR INTELLIGENCE ANALYST TO MONITOR AND EDUCATE ON OXYGEN SATURATION DURING ADLS/IADLS, NOTIFY PHYSICIAN AND/OR THE RN CLINICAL ACTUARIAL DIRECTOR FOR PHYSICIAN NOTIFICATION AND IF O2 SATS BELOW PHYSICIAN ORDERED PARAMETERS AFTER 10 MIN OF REST PT / SUPERVISOR INTELLIGENCE ANALYST TO OBSERVE FOR EARLY SIGNS AND SYMPTOMS OF DEPRESSION OR DEPRESSION GETTING WORSE AND TO EDUCATE ON HOW TO FIND HELP. PT / SUPERVISOR INTELLIGENCE ANALYST MAY EDUCATE ON PAIN MANAGEMENT CLINICALLY INDICATED, INCLUDING NON-PHARMACOLOGICAL PAIN REDUCTION TECHNIQUES PT / SUPERVISOR INTELLIGENCE ANALYST TO MONITOR FOR HYPO/HYPERGLYCEMIA AND CONDUCT ROUTINE FOOT INSPECTIONS. RECORD PATIENT REPORTED BLOOD SUGAR LEVELS AND NOTIFY PHYSICIAN AND/OR THE RN CLINICAL ACTUARIAL DIRECTOR FOR PHYSICIAN NOTIFICATION IF BLOOD SUGAR LEVELS ARE OUTSIDE ORDERED PARAMETERS. TEACH PATIENT/CAREGIVER ON DAILY FOOT INSPECTIONS PT / SUPERVISOR INTELLIGENCE ANALYST TO INSTRUCT PATIENT/CAREGIVER ON RISK FOR HOSPITALIZATION/EMERGENCY ROOM VISITS, TEACH SIGNS AND SYMPTOMS THAT PUT PATIENT AT RISK, WHEN TO NOTIFY NURSE/PHYSICIAN OF COMPLICATIONS/DECLINE, AND WHEN TO CALL 911. PT/SUPERVISOR INTELLIGENCE ANALYST TO EDUCATE ON ARTHRITIS SELF-MANAGEMENT PT / SUPERVISOR INTELLIGENCE ANALYST TO EDUCATE ON HEART FAILURE SELF-MANAGEMENT PT / SUPERVISOR INTELLIGENCE ANALYST TO EDUCATE ON HYPERTENSION SELF-MANAGEMENT PT TO ASSESS / SUPERVISOR INTELLIGENCE ANALYST TO MONITOR CARDIO/RESPIRATORY SYSTEM; AND NOTIFY THE PHYSICIAN AND/OR THE RN CLINICAL ACTUARIAL DIRECTOR FOR PHYSICIAN NOTIFICATION FOR EARLY SIGNS AND SYMPTOMS OF EXACERBATION OR DETERIORATION. PT / SUPERVISOR INTELLIGENCE ANALYST TO EDUCATE ON ATRIAL FIBRILLATION SELF-MANAGEMENT. PT / SUPERVISOR INTELLIGENCE ANALYST TO EDUCATE ON PNEUMONIA / ASPIRATION PNEUMONIA SELF-MANAGEMENT. PT/SUPERVISOR INTELLIGENCE ANALYST TO IDENTIFY FALL RISK FACTORS; EDUCATE THE PATIENT/CAREGIVER ON WAYS TO REDUCE FALL RISK FACTORS AND ESTABLISH HOME EXERCISE PROGRAM TO MINIMIZE FALL RISK. MAY TEACH THE PATIENT FLOOR RECOVERY WHEN CLINICALLY APPROPRIATE] Future Scheduled Test AGENCY MAY PERFORM A RESUMPTION OF CARE VISIT FOLLOWING ANY HOSPITAL ADMISSION. OT TO EVALUATE, OBSERVE / ASSESS, AND MONITOR, PAY AGENT TO OBSERVE AND MONITOR, PROVIDE SKILLED THERAPEUTIC INTERVENTION, ACTIVITY, EDUCATION, AND TRAINING TO ADDRESS SAFETY AND INDEPENDENCE OF ADLS AND FUNCTIONAL TRANSFERS IN HOME ENVIRONMENT. ACTIVITIES OF DAILY LIVING (OT/MARIANNE) THERAPEUTIC EXERCISE (OT/PAY AGENT) ENERGY CONSERVATION/ACTIVITY DEMAND (OT/PAY AGENT) OT/PAY AGENT TO MONITOR AND EDUCATE ON OXYGEN SATURATION DURING ADLS/IADLS, NOTIFY PHYSICIAN AND/OR THE RN CLINICAL ACTUARIAL DIRECTOR FOR PHYSICIAN NOTIFICATION AND IF O2 SATS BELOW 90% AFTER 10 MIN OF REST. OT / PAY AGENT TO IDENTIFY FALL RISK FACTORS; EDUCATE THE PATIENT/CAREGIVER ON WAYS TO REDUCE FALL RISK FACTORS AND ESTABLISH HOME EXERCISE PROGRAM TO MINIMIZE FALL RISK. MAY TEACH THE PATIENT FLOOR RECOVERY WHEN CLINICALLY APPROPRIATE. OT/PAY AGENT TO EDUCATE ON HYPERTENSION SELF-MANAGEMENT OT/MARIANNE TO EDUCATE ON ATRIAL FIBRILLATION SELF-MANAGEMENT. [code = AGENCY MAY PERFORM A RESUMPTION OF CARE VISIT FOLLOWING ANY HOSPITAL ADMISSION. OT TO EVALUATE, OBSERVE / ASSESS, AND MONITOR, PAY AGENT TO OBSERVE AND MONITOR, PROVIDE SKILLED THERAPEUTIC INTERVENTION, ACTIVITY, EDUCATION, AND TRAINING TO ADDRESS SAFETY AND INDEPENDENCE OF ADLS AND FUNCTIONAL TRANSFERS IN HOME ENVIRONMENT. ACTIVITIES OF DAILY LIVING (OT/MARIANNE) THERAPEUTIC EXERCISE (OT/PAY AGENT) ENERGY CONSERVATION/ACTIVITY DEMAND (OT/MARIANNE) OT/PAY AGENT TO MONITOR AND EDUCATE ON OXYGEN SATURATION DURING ADLS/IADLS, NOTIFY PHYSICIAN AND/OR THE RN CLINICAL ACTUARIAL DIRECTOR FOR PHYSICIAN NOTIFICATION AND IF O2 SATS BELOW 90% AFTER 10 MIN OF REST. OT / MARIANNE TO IDENTIFY FALL RISK FACTORS; EDUCATE THE PATIENT/CAREGIVER ON WAYS TO REDUCE FALL RISK FACTORS AND ESTABLISH HOME EXERCISE PROGRAM TO MINIMIZE FALL RISK. MAY TEACH THE PATIENT FLOOR RECOVERY WHEN CLINICALLY APPROPRIATE. OT/PAY AGENT TO EDUCATE ON HYPERTENSION SELF-MANAGEMENT OT/MARIANNE [...] End Date/Time Encounter Type Admission Type Attending [facility] Care Department Encounter ID Discharge Date Discharge Status Discharge Condition Discharge Reason Percent Goals Met 2025-02-07 00:00:00 2025-04-07 00:00:00 Outpatient NEW ADMISSION [facility] [id number]
--- OUTSIDE RECORDS SUMMARY | 2025-04-06 18:00 | XMS_ITS | Clinical Summary ---
Author Organization Unknown Care Team Providers Care Cyber Incident Responder Name Role Phone DIGNA ARIEL, ESTRELLA Unavailable Unava dinora STOKES RN, FRANKIE Unavailable Unavailabl e KARI PT, DIDI Unavailable Unavailable NAT COUNTER TOP ASSEMBLER, GAUDENCIO Unavailable Unavailabl e RADHA OT, ROLANDO Unavailable Unavailable JOANNE STEVEN, HATTIE Unavailable Unavailable Payers Payer Name Policy Type Policy Number Effective Date Expira tion Date MEDICARE.[facility] [id number] Problems Condition Name Condition Details Condition Category Status Onset Date Resolution Date Last Treatment Date Treating Clinician Comments 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 02-07 [...] PNEUMONIA (RECURRENT) Active 02-07 00:00: 00 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) USE OF SYSTEMIC STEROIDS Active 02-07 [...] 80 mg tablet 02-07 00:00: 00 Yes [id number] CHOLESTEROL 1 tablet DAILY 1 tablet DAILY (route: oral) Med Classific ation: Cardiovas cular Therapy Agents digoxin 125 mcg (0.125 mg) tablet 02-07 00:00: 00 02-21 23:59 :00 No [id number] HEART RHYTHM 1 tablet DAILY 1 tablet DAILY (route: oral) Med Classific ation: Cardiovas cular Therapy Agents escitalopra m 10 mg tablet 02-07 00:00: 00 Yes [id number] MOOD 1 tablet DAILY 1 tablet DAILY (route: oral) Med Classific ation: Central Nervous System Agents ezetimibe 10 mg tablet 02-07 00:00: 00 Yes [id number] CHOLESTEROL 1 tablet DAILY 1 tablet DAILY (route: oral) Med Classific ation: Cardiovas cular Therapy Agents metoprolol succinate ER 25 mg tablet,exte nded release 24 hr 02-07 00:00: 00 02-21 23:59 :00 No [id number] BLOOD PRESSURE 0.5 tablet DAILY 0.5 tablet DAILY (route: oral) Med Classific ation: Cardiovas cular Therapy Agents pantoprazol e 40 mg tablet,joão yed release 02-07 00:00: 00 02-21 23:59 :00 No [id number] STOMACH ACID 1 tablet DAILY 1 tablet DAILY (route: oral) Med Classific ation: Gastroint estinal Therapy Agents prednisone 5 mg tablet 02-07 00:00: 00 Yes [id number] ADRENAL INSUFFICIEN CY 1 tablet DAILY 1 tablet DAILY (route: oral) Med Classific ation: Endocrine spironolact one 25 mg tablet 02-07 00:00: 00 Yes [id number] FLUID RETENTION 0.5 tablet DAILY 0.5 tablet DAILY (route: oral) Med Classific ation: Cardiovas cular Therapy Agents tamsulosin 0.4 mg capsule 02-07 00:00: 00 02-21 23:59 :00 No [id number] URINARY HEALTH 1 capsule DAILY 1 capsule DAILY (route: oral) Med Classific ation: Genitouri nary Therapy acetaminoph en 325 mg tablet 2024-05 00:00: 00 Yes [id number] PAIN 2 tablet 2 TIMES DAILY 2 tablet 2 TIMES DAILY (route: oral) Med Classific ation: Analgesic , Anti-infl ammatory or Antipyret ic aspirin 81 mg tablet 2024-05 00:00: 00 Yes [id number] ANTICOAGULA NT 1 tablet DAILY 1 tablet DAILY (route: oral) Med Classific ation: Hematolog ical Agents ipratropium 0.5 mg-albutero l 3 mg (2.5 mg base)/3 mL nebulizatio n soln 2024-05 00:00: 00 Yes [id number] COPD 3 mL EVERY 6 HOURS 3 mL EVERY 6 HOURS (route: inhalation ) Med Classific ation: Respirato ry Therapy Agents Lanoxin 62.5 mcg (0.0625 mg) tablet 2024-05 00:00: 00 Yes [id number] CHF 1 tablet DAILY 1 tablet DAILY (route: oral) Med Classific ation: Cardiovas cular Therapy Agents Lasix 20 mg tablet 2024-05 00:00: 00 Yes [id number] CHF 1 tablet DAILY 1 tablet DAILY (route: oral) Med Classific ation: Cardiovas cular Therapy Agents Toprol XL 25 mg tablet,exte nded release 2024-05 00:00: 00 Yes [id number] BP 25 mg DAILY 25 mg DAILY [...] SYSTEM MANAGEMENT; RN TO ASSESS AND TEACH, FAST FOOD TEAM MEMBER/TEXTILE WORKER TO OBSERVE AND TEACH RELATED TO ALTERED RESPIRATORY STATUS TO MINIMIZE COMPLICATIONS AND REDUCE HOSPITALIZATION. [code = SN 1WK9 PT 1WK1 OT EFFECTIVE 02/10/2025K1 RESPIRATORY SYSTEM MANAGEMENT; RN TO ASSESS AND TEACH, FAST FOOD TEAM MEMBER/TEXTILE WORKER TO OBSERVE AND TEACH RELATED TO ALTERED RESPIRATORY STATUS TO MINIMIZE COMPLICATIONS AND REDUCE HOSPITALIZATION.] Future Scheduled Test TRACHEOSTO MY CARE MANAGEMENT; RN/FAST FOOD TEAM MEMBER/TEXTILE WORKER TO INSTRUCT PATIENT/CAREGIVER ON CARE AND MANAGEMENT OF TRACHEOSTOMY. RN/ FAST FOOD TEAM MEMBER/TEXTILE WORKER TO PROVIDE SKILLED TEACHING ON TRACH COLLAR SUCTIONING PRN WITH 14 FR SUCTION CATHETER PER PATIENT TRACH CARE WITH INNER CANNULA: REMOVE INNER CANNULA, CLEANSE WITH NORMAL SALINE AND OR STERILE WATER AND REINSERT NON-DISPOSABLE CANNULA SIZE OF INNER CANNULA 5 BROOKS [code = TRACHEOSTOMY CARE MANAGEMENT; RN/FAST FOOD TEAM MEMBER/TEXTILE WORKER TO INSTRUCT PATIENT/CAREGIVER ON CARE AND MANAGEMENT OF TRACHEOSTOMY. RN/ FAST FOOD TEAM MEMBER/TEXTILE WORKER TO PROVIDE SKILLED TEACHING ON TRACH COLLAR SUCTIONING PRN WITH 14 FR SUCTION CATHETER PER PATIENT TRACH CARE WITH INNER CANNULA: REMOVE INNER CANNULA, CLEANSE WITH NORMAL SALINE AND OR STERILE WATER AND REINSERT NON-DISPOSABLE CANNULA SIZE OF INNER CANNULA 5 BROOKS] Future Scheduled Test FALL REDUC TION MANAGEMENT; RN TO ASSESS AND OBSERVE, FAST FOOD TEAM MEMBER/TEXTILE WORKER TO OBSERVE FALL RISK FACTORS AND EDUCATE PATIENT/CAREGIVER ON STRATEGIES TO MINIMIZE THE RISK OF FALLING. [code = FALL REDUCTION MANAGEMENT; RN TO ASSESS AND OBSERVE, FAST FOOD TEAM MEMBER/TEXTILE WORKER TO OBSERVE FALL RISK FACTORS AND EDUCATE PATIENT/CAREGIVER ON STRATEGIES TO MINIMIZE THE RISK OF FALLING.] Future Scheduled Test ANEMIA MAN AGEMENT; RN TO ASSESS AND TEACH, TEXTILE WORKER/FAST FOOD TEAM MEMBER TO OBSERVE AND TEACH AND PROVIDE EDUCATION ON ANEMIA. [code = ANEMIA MANAGEMENT; RN TO ASSESS AND TEACH, TEXTILE WORKER/FAST FOOD TEAM MEMBER TO OBSERVE AND TEACH AND PROVIDE EDUCATION ON ANEMIA.] Future Scheduled Test RN TO OBSE RVE, ASSESS, EVALUATE, AND DEVELOP AN INDIVIDUALIZED PLAN OF CARE. AGENCY MAY ACCEPT ORDERS FROM CONSULTING PHYSICIANS RN TO OBSERVE AND ASSESS, FAST FOOD TEAM MEMBER/TEXTILE WORKER TO OBSERVE FOR RISK FOR FALLS AND INSTRUCT IN FALL PREVENTION, HOME SAFETY, MEDICATION MANAGEMENT, INFECTION PREVENTION, AND NUTRITION MANAGEMENT. RN/FAST FOOD TEAM MEMBER/TEXTILE WORKER NURSE MAY PERFORM O2 SATURATION LEVEL ON ADMISSION AND PRN FOR RN TO ASSESS/FAST FOOD TEAM MEMBER TO OBSERVE PATIENT, WITH NOTIFICATION TO THE PHYSICIAN IF SATURATION IS 90% IN THE ABSENCE OF MORE SPECIFIC PARAMETERS FROM THE PHYSICIAN. AGENCY MAY PERFORM A RESUMPTION OF CARE VISIT FOLLOWING ANY HOSPITAL ADMISSION. RN/FAST FOOD TEAM MEMBER/TEXTILE WORKER TO MONITOR CO-MORBID CONDITIONS LISTED ON THE PLAN OF CARE AND ANY NEW CONDITIONS THAT PRESENT THEMSELVES DURING THIS EPISODE TO IDENTIFY CHANGES AND INTERVENE TO MINIMIZE COMPLICATIONS. [code = RN TO OBSERVE, ASSESS, EVALUATE, AND DEVELOP AN INDIVIDUALIZED PLAN OF CARE. AGENCY MAY ACCEPT ORDERS FROM CONSULTING PHYSICIANS RN TO OBSERVE AND ASSESS, FAST FOOD TEAM MEMBER/TEXTILE WORKER TO OBSERVE FOR RISK FOR FALLS AND INSTRUCT IN FALL PREVENTION, HOME SAFETY, MEDICATION MANAGEMENT, INFECTION PREVENTION, AND NUTRITION MANAGEMENT. RN/FAST FOOD TEAM MEMBER/TEXTILE WORKER NURSE MAY PERFORM O2 SATURATION LEVEL ON ADMISSION AND PRN FOR RN TO ASSESS/FAST FOOD TEAM MEMBER TO OBSERVE PATIENT, WITH NOTIFICATION TO THE PHYSICIAN IF SATURATION IS 90% IN THE ABSENCE OF MORE SPECIFIC PARAMETERS FROM THE PHYSICIAN. AGENCY MAY PERFORM A RESUMPTION OF CARE VISIT FOLLOWING ANY HOSPITAL ADMISSION. RN/FAST FOOD TEAM MEMBER/TEXTILE WORKER TO MONITOR CO-MORBID CONDITIONS LISTED ON THE PLAN OF CARE AND ANY NEW CONDITIONS THAT PRESENT THEMSELVES DURING THIS EPISODE TO IDENTIFY CHANGES AND INTERVENE TO MINIMIZE COMPLICATIONS.] Future Scheduled Test PAIN MANAG EMENT; RN TO ASSESS AND TEACH, TEXTILE WORKER/FAST FOOD TEAM MEMBER TO OBSERVE AND TEACH AND PROVIDE EDUCATION ON PAIN MANAGEMENT TECHNIQUES. [code = PAIN MANAGEMENT; RN TO ASSESS AND TEACH, TEXTILE WORKER/FAST FOOD TEAM MEMBER TO OBSERVE AND TEACH AND PROVIDE EDUCATION ON PAIN MANAGEMENT TECHNIQUES.] Future Scheduled Test RISK FOR H OSPITALIZATION; RN TO ASSESS/TEACH, TEXTILE WORKER/FAST FOOD TEAM MEMBER TO OBSERVE/TEACH PATIENT/CAREGIVER ON RISK FOR HOSPITALIZATION/EMERGENCY ROOM VISITS, TEACH SIGNS AND SYMPTOMS THAT PUT PATIENT AT RISK, WHEN TO NOTIFY NURSE/PHYSICIAN OF COMPLICATIONS/DECLINE, AND WHEN TO CALL 911. [code = RISK FOR HOSPITALIZATION; RN TO ASSESS/TEACH, TEXTILE WORKER/FAST FOOD TEAM MEMBER TO OBSERVE/TEACH PATIENT/CAREGIVER ON RISK FOR HOSPITALIZATION/EMERGENCY ROOM VISITS, TEACH SIGNS AND SYMPTOMS THAT PUT PATIENT AT RISK, WHEN TO NOTIFY NURSE/PHYSICIAN OF COMPLICATIONS/DECLINE, AND WHEN TO CALL 911.] Future Scheduled Test CARDIOVASC ULAR SYSTEM; RN TO ASSESS/TEACH, FAST FOOD TEAM MEMBER/TEXTILE WORKER TO OBSERVE/TEACH RELATED TO ALTERED CARDIOVASCULAR STATUS TO MINIMIZE COMPLICATIONS AND REDUCE HOSPITALIZATION. [code = CARDIOVASCULAR SYSTEM; RN TO ASSESS/TEACH, FAST FOOD TEAM MEMBER/TEXTILE WORKER TO OBSERVE/TEACH RELATED TO ALTERED CARDIOVASCULAR STATUS TO MINIMIZE COMPLICATIONS AND REDUCE HOSPITALIZATION.] Future Scheduled Test HYPERTENSI ON MANAGEMENT; RN TO ASSESS AND TEACH, FAST FOOD TEAM MEMBER/TEXTILE WORKER TO OBSERVE AND TEACH WARNING SIGNS AND SYMPTOMS TO AVOID HOSPITALIZATION. [code = HYPERTENSION MANAGEMENT; RN TO ASSESS AND TEACH, FAST FOOD TEAM MEMBER/TEXTILE WORKER TO OBSERVE AND TEACH WARNING SIGNS AND SYMPTOMS TO AVOID HOSPITALIZATION.] Future Scheduled Test HEART FAIL URE MONITORING RN/TEXTILE WORKER/FAST FOOD TEAM MEMBER TO MONITOR PATIENT FOR SIGNS AND SYMPTOMS OF HEART FAILURE EXACERBATION, MONITOR FOR ADHERENCE WITH MEDICATION AND HEART FAILURE MANAGEMENT REGIMEN. [code = HEART FAILURE MONITORING RN/TEXTILE WORKER/FAST FOOD TEAM MEMBER TO MONITOR PATIENT FOR SIGNS AND SYMPTOMS OF HEART FAILURE EXACERBATION, MONITOR FOR ADHERENCE WITH MEDICATION AND HEART FAILURE MANAGEMENT REGIMEN.] Future Scheduled Test DIABETES M ONITORING RN/TEXTILE WORKER/FAST FOOD TEAM MEMBER TO MONITOR BLOOD SUGAR LOG FOR BLOOD SUGAR READINGS THAT ARE BEING CHECKED BY PATIENT, CAREGIVER NEEDED FOR SIGNS AND SYMPTOMS OF HYPER/HYPOGLYCEMIA. PATIENT THERAPEUTIC BLOOD SUGAR PARAMETERS ARE 70 - 300. REPORT BLOOD SUGARS OUT OF RANGE TO PHYSICIAN. NURSE MAY PERFORM FINGER STICK BLOOD GLUCOSE NEEDED FOR SIGNS AND SYMPTOMS OF HYPO AND HYPERGLYCEMIA. RN/TEXTILE WORKER/FAST FOOD TEAM MEMBER TO MONITOR ADHERENCE OF PATIENT/CAREGIVER PERFORMING DIABETIC FOOT CARE AND MAY PERFORM DIABETIC FOOT CARE PRN. RN/TEXTILE WORKER/FAST FOOD TEAM MEMBER TO MONITOR FOR ADHERENCE TO DIABETIC SELF-CARE AND MANAGEMENT INCLUDING MEDICATIONS. [code = DIABETES MONITORING RN/TEXTILE WORKER/FAST FOOD TEAM MEMBER TO MONITOR BLOOD SUGAR LOG FOR BLOOD SUGAR READINGS THAT ARE BEING CHECKED BY PATIENT, CAREGIVER NEEDED FOR SIGNS AND SYMPTOMS OF HYPER/HYPOGLYCEMIA. PATIENT THERAPEUTIC BLOOD SUGAR PARAMETERS ARE 70 - 300. REPORT BLOOD SUGARS OUT OF RANGE TO PHYSICIAN. NURSE MAY PERFORM FINGER STICK BLOOD GLUCOSE NEEDED FOR SIGNS AND SYMPTOMS OF HYPO AND HYPERGLYCEMIA. RN/TEXTILE WORKER/FAST FOOD TEAM MEMBER TO MONITOR ADHERENCE OF PATIENT/CAREGIVER PERFORMING DIABETIC FOOT CARE AND MAY PERFORM DIABETIC FOOT CARE PRN. RN/TEXTILE WORKER/FAST FOOD TEAM MEMBER TO MONITOR FOR ADHERENCE TO DIABETIC SELF-CARE AND MANAGEMENT INCLUDING MEDICATIONS.] Future Scheduled Test HYPOTENSIO N MANAGEMENT; RN TO ASSESS AND TEACH/ FAST FOOD TEAM MEMBER /TEXTILE WORKER TO OBSERVE AND TEACH WARNING SIGNS AND SYMPTOMS TO AVOID HOSPITALIZATION. [code = HYPOTENSION MANAGEMENT; RN TO ASSESS AND TEACH/ FAST FOOD TEAM MEMBER /TEXTILE WORKER TO OBSERVE AND TEACH WARNING SIGNS AND SYMPTOMS TO AVOID HOSPITALIZATION.] Future Scheduled Test ARRHYTHMIA MANAGEMENT; RN TO ASSESS AND TEACH, FAST FOOD TEAM MEMBER/TEXTILE WORKER TO OBSERVE AND TEACH WARNING SIGNS AND SYMPTOMS TO AVOID HOSPITALIZATION. [code = ARRHYTHMIA MANAGEMENT; RN TO ASSESS AND TEACH, FAST FOOD TEAM MEMBER/TEXTILE WORKER TO OBSERVE AND TEACH WARNING SIGNS AND SYMPTOMS TO AVOID HOSPITALIZATION.] Future Scheduled Test MEDICATION MANAGEMENT; RN/FAST FOOD TEAM MEMBER/TEXTILE WORKER TO REVIEW MEDICATIONS FOR INTERACTIONS, EFFECTIVENESS OF DRUG THERAPY, AND SIGNS/SYMPTOMS OF ADVERSE REACTIONS. MAY INSTRUCT AND REINFORCE MEDICATION TEACHING RELATED TO THE USE OF MEDICATIONS, DOSAGE, FREQUENCY, PURPOSE, SIDE EFFECTS, AND TO REPORT COMPLICATIONS. [code = MEDICATION MANAGEMENT; RN/FAST FOOD TEAM MEMBER/TEXTILE WORKER TO REVIEW MEDICATIONS FOR INTERACTIONS, EFFECTIVENESS OF [...] EVAL UATE, OBSERVE / ASSESS, AND MONITOR, COUNTER TOP ASSEMBLER TO OBSERVE AND MONITOR, PROVIDE SKILLED THERAPEUTIC INTERVENTION, ACTIVITY, EDUCATION, AND TRAINING TO ADDRESS GEN. WEAKNESS, POOR OVERALL ACTIVITY TOLERANCE, AND FUNCTIONAL LIMITATIONS IMPACTING SAFETY AND INDEPENDENCE. BED MOBILITY (PT/COUNTER TOP ASSEMBLER) PT/COUNTER TOP ASSEMBLER TO PROVIDE GAIT TRAINING FOR IMPROVED MOBILITY AND /OR TO NORMALIZE GAIT PATTERN THERAPEUTIC EXERCISES AND ESTABLISHING A HOME EXERCISE PROGRAM (PT/COUNTER TOP ASSEMBLER) PT/COUNTER TOP ASSEMBLER TO PROVIDE STAIR TRAINING PT / COUNTER TOP ASSEMBLER TO MONITOR AND EDUCATE ON OXYGEN SATURATION DURING ADLS/IADLS, NOTIFY PHYSICIAN AND/OR THE RN CLINICAL HEAD OF MARKETING ANALYTICS FOR PHYSICIAN NOTIFICATION AND IF O2 SATS BELOW PHYSICIAN ORDERED PARAMETERS AFTER 10 MIN OF REST PT / COUNTER TOP ASSEMBLER TO OBSERVE FOR EARLY SIGNS AND SYMPTOMS OF DEPRESSION OR DEPRESSION GETTING WORSE AND TO EDUCATE ON HOW TO FIND HELP. PT / COUNTER TOP ASSEMBLER MAY EDUCATE ON PAIN MANAGEMENT CLINICALLY INDICATED, INCLUDING NON-PHARMACOLOGICAL PAIN REDUCTION TECHNIQUES PT / COUNTER TOP ASSEMBLER TO MONITOR FOR HYPO/HYPERGLYCEMIA AND CONDUCT ROUTINE FOOT INSPECTIONS. RECORD PATIENT REPORTED BLOOD SUGAR LEVELS AND NOTIFY PHYSICIAN AND/OR THE RN CLINICAL HEAD OF MARKETING ANALYTICS FOR PHYSICIAN NOTIFICATION IF BLOOD SUGAR LEVELS ARE OUTSIDE ORDERED PARAMETERS. TEACH PATIENT/CAREGIVER ON DAILY FOOT INSPECTIONS PT / COUNTER TOP ASSEMBLER TO INSTRUCT PATIENT/CAREGIVER ON RISK FOR HOSPITALIZATION/EMERGENCY ROOM VISITS, TEACH SIGNS AND SYMPTOMS THAT PUT PATIENT AT RISK, WHEN TO NOTIFY NURSE/PHYSICIAN OF COMPLICATIONS/DECLINE, AND WHEN TO CALL 911. PT/COUNTER TOP ASSEMBLER TO EDUCATE ON ARTHRITIS SELF-MANAGEMENT PT / COUNTER TOP ASSEMBLER TO EDUCATE ON HEART FAILURE SELF-MANAGEMENT PT / COUNTER TOP ASSEMBLER TO EDUCATE ON HYPERTENSION SELF-MANAGEMENT PT TO ASSESS / COUNTER TOP ASSEMBLER TO MONITOR CARDIO/RESPIRATORY SYSTEM; AND NOTIFY THE PHYSICIAN AND/OR THE RN CLINICAL HEAD OF MARKETING ANALYTICS FOR PHYSICIAN NOTIFICATION FOR EARLY SIGNS AND SYMPTOMS OF EXACERBATION OR DETERIORATION. PT / COUNTER TOP ASSEMBLER TO EDUCATE ON ATRIAL FIBRILLATION SELF-MANAGEMENT. PT / COUNTER TOP ASSEMBLER TO EDUCATE ON PNEUMONIA / ASPIRATION PNEUMONIA SELF-MANAGEMENT. PT/COUNTER TOP ASSEMBLER TO IDENTIFY FALL RISK FACTORS; EDUCATE THE PATIENT/CAREGIVER ON WAYS TO REDUCE FALL RISK FACTORS AND ESTABLISH HOME EXERCISE PROGRAM TO MINIMIZE FALL RISK. MAY TEACH THE PATIENT FLOOR RECOVERY WHEN CLINICALLY APPROPRIATE [code = PT TO EVALUATE, OBSERVE / ASSESS, AND MONITOR, COUNTER TOP ASSEMBLER TO OBSERVE AND MONITOR, PROVIDE SKILLED THERAPEUTIC INTERVENTION, ACTIVITY, EDUCATION, AND TRAINING TO ADDRESS GEN. WEAKNESS, POOR OVERALL ACTIVITY TOLERANCE, AND FUNCTIONAL LIMITATIONS IMPACTING SAFETY AND INDEPENDENCE. BED MOBILITY (PT/COUNTER TOP ASSEMBLER) PT/COUNTER TOP ASSEMBLER TO PROVIDE GAIT TRAINING FOR IMPROVED MOBILITY AND /OR TO NORMALIZE GAIT PATTERN THERAPEUTIC EXERCISES AND ESTABLISHING A HOME EXERCISE PROGRAM (PT/COUNTER TOP ASSEMBLER) PT/COUNTER TOP ASSEMBLER TO PROVIDE STAIR TRAINING PT / COUNTER TOP ASSEMBLER TO MONITOR AND EDUCATE ON OXYGEN SATURATION DURING ADLS/IADLS, NOTIFY PHYSICIAN AND/OR THE RN CLINICAL HEAD OF MARKETING ANALYTICS FOR PHYSICIAN NOTIFICATION AND IF O2 SATS BELOW PHYSICIAN ORDERED PARAMETERS AFTER 10 MIN OF REST PT / COUNTER TOP ASSEMBLER TO OBSERVE FOR EARLY SIGNS AND SYMPTOMS OF DEPRESSION OR DEPRESSION GETTING WORSE AND TO EDUCATE ON HOW TO FIND HELP. PT / COUNTER TOP ASSEMBLER MAY EDUCATE ON PAIN MANAGEMENT CLINICALLY INDICATED, INCLUDING NON-PHARMACOLOGICAL PAIN REDUCTION TECHNIQUES PT / COUNTER TOP ASSEMBLER TO MONITOR FOR HYPO/HYPERGLYCEMIA AND CONDUCT ROUTINE FOOT INSPECTIONS. RECORD PATIENT REPORTED BLOOD SUGAR LEVELS AND NOTIFY PHYSICIAN AND/OR THE RN CLINICAL HEAD OF MARKETING ANALYTICS FOR PHYSICIAN NOTIFICATION IF BLOOD SUGAR LEVELS ARE OUTSIDE ORDERED PARAMETERS. TEACH PATIENT/CAREGIVER ON DAILY FOOT INSPECTIONS PT / COUNTER TOP ASSEMBLER TO INSTRUCT PATIENT/CAREGIVER ON RISK FOR HOSPITALIZATION/EMERGENCY ROOM VISITS, TEACH SIGNS AND SYMPTOMS THAT PUT PATIENT AT RISK, WHEN TO NOTIFY NURSE/PHYSICIAN OF COMPLICATIONS/DECLINE, AND WHEN TO CALL 911. PT/COUNTER TOP ASSEMBLER TO EDUCATE ON ARTHRITIS SELF-MANAGEMENT PT / COUNTER TOP ASSEMBLER TO EDUCATE ON HEART FAILURE SELF-MANAGEMENT PT / COUNTER TOP ASSEMBLER TO EDUCATE ON HYPERTENSION SELF-MANAGEMENT PT TO ASSESS / COUNTER TOP ASSEMBLER TO MONITOR CARDIO/RESPIRATORY SYSTEM; AND NOTIFY THE PHYSICIAN AND/OR THE RN CLINICAL HEAD OF MARKETING ANALYTICS FOR PHYSICIAN NOTIFICATION FOR EARLY SIGNS AND SYMPTOMS OF EXACERBATION OR DETERIORATION. PT / COUNTER TOP ASSEMBLER TO EDUCATE ON ATRIAL FIBRILLATION SELF-MANAGEMENT. PT / COUNTER TOP ASSEMBLER TO EDUCATE ON PNEUMONIA / ASPIRATION PNEUMONIA SELF-MANAGEMENT. PT/COUNTER TOP ASSEMBLER TO IDENTIFY FALL RISK FACTORS; EDUCATE THE PATIENT/CAREGIVER ON WAYS TO REDUCE FALL RISK FACTORS AND ESTABLISH HOME EXERCISE PROGRAM TO MINIMIZE FALL RISK. MAY TEACH THE PATIENT FLOOR RECOVERY WHEN CLINICALLY APPROPRIATE] Future Scheduled Test AGENCY MAY PERFORM A RESUMPTION OF CARE VISIT FOLLOWING ANY HOSPITAL ADMISSION. OT TO EVALUATE, OBSERVE / ASSESS, AND MONITOR, SEEING EYE DOG TEACHER TO OBSERVE AND MONITOR, PROVIDE SKILLED THERAPEUTIC INTERVENTION, ACTIVITY, EDUCATION, AND TRAINING TO ADDRESS SAFETY AND INDEPENDENCE OF ADLS AND FUNCTIONAL TRANSFERS IN HOME ENVIRONMENT. ACTIVITIES OF DAILY LIVING (OT/MARIANNE) THERAPEUTIC EXERCISE (OT/SEEING EYE DOG TEACHER) ENERGY CONSERVATION/ACTIVITY DEMAND (OT/SEEING EYE DOG TEACHER) OT/SEEING EYE DOG TEACHER TO MONITOR AND EDUCATE ON OXYGEN SATURATION DURING ADLS/IADLS, NOTIFY PHYSICIAN AND/OR THE RN CLINICAL HEAD OF MARKETING ANALYTICS FOR PHYSICIAN NOTIFICATION AND IF O2 SATS BELOW 90% AFTER 10 MIN OF REST. OT / SEEING EYE DOG TEACHER TO IDENTIFY FALL RISK FACTORS; EDUCATE THE PATIENT/CAREGIVER ON WAYS TO REDUCE FALL RISK FACTORS AND ESTABLISH HOME EXERCISE PROGRAM TO MINIMIZE FALL RISK. MAY TEACH THE PATIENT FLOOR RECOVERY WHEN CLINICALLY APPROPRIATE. OT/SEEING EYE DOG TEACHER TO EDUCATE ON HYPERTENSION SELF-MANAGEMENT OT/MARIANNE TO EDUCATE ON ATRIAL FIBRILLATION SELF-MANAGEMENT. [code = AGENCY MAY PERFORM A RESUMPTION OF CARE VISIT FOLLOWING ANY HOSPITAL ADMISSION. OT TO EVALUATE, OBSERVE / ASSESS, AND MONITOR, SEEING EYE DOG TEACHER TO OBSERVE AND MONITOR, PROVIDE SKILLED THERAPEUTIC INTERVENTION, ACTIVITY, EDUCATION, AND TRAINING TO ADDRESS SAFETY AND INDEPENDENCE OF ADLS AND FUNCTIONAL TRANSFERS IN HOME ENVIRONMENT. ACTIVITIES OF DAILY LIVING (OT/MARIANNE) THERAPEUTIC EXERCISE (OT/SEEING EYE DOG TEACHER) ENERGY CONSERVATION/ACTIVITY DEMAND (OT/MARIANNE) OT/SEEING EYE DOG TEACHER TO MONITOR AND EDUCATE ON OXYGEN SATURATION DURING ADLS/IADLS, NOTIFY PHYSICIAN AND/OR THE RN CLINICAL HEAD OF MARKETING ANALYTICS FOR PHYSICIAN NOTIFICATION AND IF O2 SATS BELOW 90% AFTER 10 MIN OF REST. OT / MARIANNE TO IDENTIFY FALL RISK FACTORS; EDUCATE THE PATIENT/CAREGIVER ON WAYS TO REDUCE FALL RISK FACTORS AND ESTABLISH HOME EXERCISE PROGRAM TO MINIMIZE FALL RISK. MAY TEACH THE PATIENT FLOOR RECOVERY WHEN CLINICALLY APPROPRIATE. OT/SEEING EYE DOG TEACHER TO EDUCATE ON HYPERTENSION SELF-MANAGEMENT OT/MARIANNE [...] 2025-04-07 00:00:00 Outpatient NEW ADMISSION [facility] [id number]
--- OUTSIDE RECORDS SUMMARY | 2025-04-06 18:00 | XMS_ITS | Clinical Summary ---
Author Organization Unknown Care Team Providers Care Collect On Delivery Clerk Name Role Phone DIGNA ARIEL, ESTRELLA Unavailable Unava dinora STOKES RN, FRANKIE Unavailable Unavailabl e KARI PT, DIDI Unavailable Unavailable NAT ETCHER APPRENTICE PHOTOENGRAVING, GAUDENCIO Unavailable Unavailabl e RADHA OT, ROLANDO Unavailable Unavailable JOANNE STEVEN, HATTIE Unavailable Unavailable Payers Payer Name Policy Type Policy Number Effective Date Expira tion Date MEDICARE.[facility] [id number] Problems Condition Name Condition Details Condition Category Status Onset Date Resolution Date Last Treatment Date Treating Clinician Comments 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 02-07 [...] OF PNEUMONIA (RECURRENT) Active 02-07 00:00: 00 PRIMER BOXER (CURRENT) USE OF SYSTEMIC STEROIDS Active 02-07 [...] 80 mg tablet 02-07 00:00: 00 Yes [id number] CHOLESTEROL 1 tablet DAILY 1 tablet DAILY (route: oral) Med Classific ation: Cardiovas cular Therapy Agents digoxin 125 mcg (0.125 mg) tablet 02-07 00:00: 00 02-21 23:59 :00 No [id number] HEART RHYTHM 1 tablet DAILY 1 tablet DAILY (route: oral) Med Classific ation: Cardiovas cular Therapy Agents escitalopra m 10 mg tablet 02-07 00:00: 00 Yes [id number] MOOD 1 tablet DAILY 1 tablet DAILY (route: oral) Med Classific ation: Central Nervous System Agents ezetimibe 10 mg tablet 02-07 00:00: 00 Yes [id number] CHOLESTEROL 1 tablet DAILY 1 tablet DAILY (route: oral) Med Classific ation: Cardiovas cular Therapy Agents metoprolol succinate ER 25 mg tablet,exte nded release 24 hr 02-07 00:00: 00 02-21 23:59 :00 No [id number] BLOOD PRESSURE 0.5 tablet DAILY 0.5 tablet DAILY (route: oral) Med Classific ation: Cardiovas cular Therapy Agents pantoprazol e 40 mg tablet,joão yed release 02-07 00:00: 00 02-21 23:59 :00 No [id number] STOMACH ACID 1 tablet DAILY 1 tablet DAILY (route: oral) Med Classific ation: Gastroint estinal Therapy Agents prednisone 5 mg tablet 02-07 00:00: 00 Yes [id number] ADRENAL INSUFFICIEN CY 1 tablet DAILY 1 tablet DAILY (route: oral) Med Classific ation: Endocrine spironolact one 25 mg tablet 02-07 00:00: 00 Yes [id number] FLUID RETENTION 0.5 tablet DAILY 0.5 tablet DAILY (route: oral) Med Classific ation: Cardiovas cular Therapy Agents tamsulosin 0.4 mg capsule 02-07 00:00: 00 02-21 23:59 :00 No [id number] URINARY HEALTH 1 capsule DAILY 1 capsule DAILY (route: oral) Med Classific ation: Genitouri nary Therapy acetaminoph en 325 mg tablet 2024-05 00:00: 00 Yes [id number] PAIN 2 tablet 2 TIMES DAILY 2 tablet 2 TIMES DAILY (route: oral) Med Classific ation: Analgesic , Anti-infl ammatory or Antipyret ic aspirin 81 mg tablet 2024-05 00:00: 00 Yes [id number] ANTICOAGULA NT 1 tablet DAILY 1 tablet DAILY (route: oral) Med Classific ation: Hematolog ical Agents ipratropium 0.5 mg-albutero l 3 mg (2.5 mg base)/3 mL nebulizatio n soln 2024-05 00:00: 00 Yes [id number] COPD 3 mL EVERY 6 HOURS 3 mL EVERY 6 HOURS (route: inhalation ) Med Classific ation: Respirato ry Therapy Agents Lanoxin 62.5 mcg (0.0625 mg) tablet 2024-05 00:00: 00 Yes [id number] CHF 1 tablet DAILY 1 tablet DAILY (route: oral) Med Classific ation: Cardiovas cular Therapy Agents Lasix 20 mg tablet 2024-05 00:00: 00 Yes [id number] CHF 1 tablet DAILY 1 tablet DAILY (route: oral) Med Classific ation: Cardiovas cular Therapy Agents Toprol XL 25 mg tablet,exte nded release 2024-05 00:00: 00 Yes [id number] BP 25 mg DAILY 25 mg DAILY [...] SYSTEM MANAGEMENT; RN TO ASSESS AND TEACH, LINE PATROLLER/JACK STRIP ASSEMBLER TO OBSERVE AND TEACH RELATED TO ALTERED RESPIRATORY STATUS TO MINIMIZE COMPLICATIONS AND REDUCE HOSPITALIZATION. [code = SN 1WK9 PT 1WK1 OT EFFECTIVE 02/10/2025K1 RESPIRATORY SYSTEM MANAGEMENT; RN TO ASSESS AND TEACH, LINE PATROLLER/JACK STRIP ASSEMBLER TO OBSERVE AND TEACH RELATED TO ALTERED RESPIRATORY STATUS TO MINIMIZE COMPLICATIONS AND REDUCE HOSPITALIZATION.] Future Scheduled Test TRACHEOSTO MY CARE MANAGEMENT; RN/LINE PATROLLER/JACK STRIP ASSEMBLER TO INSTRUCT PATIENT/CAREGIVER ON CARE AND MANAGEMENT OF TRACHEOSTOMY. RN/ LINE PATROLLER/JACK STRIP ASSEMBLER TO PROVIDE SKILLED TEACHING ON TRACH COLLAR SUCTIONING PRN WITH 14 FR SUCTION CATHETER PER PATIENT TRACH CARE WITH INNER CANNULA: REMOVE INNER CANNULA, CLEANSE WITH NORMAL SALINE AND OR STERILE WATER AND REINSERT NON-DISPOSABLE CANNULA SIZE OF INNER CANNULA 5 BROOKS [code = TRACHEOSTOMY CARE MANAGEMENT; RN/LINE PATROLLER/JACK STRIP ASSEMBLER TO INSTRUCT PATIENT/CAREGIVER ON CARE AND MANAGEMENT OF TRACHEOSTOMY. RN/ LINE PATROLLER/JACK STRIP ASSEMBLER TO PROVIDE SKILLED TEACHING ON TRACH COLLAR SUCTIONING PRN WITH 14 FR SUCTION CATHETER PER PATIENT TRACH CARE WITH INNER CANNULA: REMOVE INNER CANNULA, CLEANSE WITH NORMAL SALINE AND OR STERILE WATER AND REINSERT NON-DISPOSABLE CANNULA SIZE OF INNER CANNULA 5 BROOKS] Future Scheduled Test FALL REDUC TION MANAGEMENT; RN TO ASSESS AND OBSERVE, LINE PATROLLER/JACK STRIP ASSEMBLER TO OBSERVE FALL RISK FACTORS AND EDUCATE PATIENT/CAREGIVER ON STRATEGIES TO MINIMIZE THE RISK OF FALLING. [code = FALL REDUCTION MANAGEMENT; RN TO ASSESS AND OBSERVE, LINE PATROLLER/JACK STRIP ASSEMBLER TO OBSERVE FALL RISK FACTORS AND EDUCATE PATIENT/CAREGIVER ON STRATEGIES TO MINIMIZE THE RISK OF FALLING.] Future Scheduled Test ANEMIA MAN AGEMENT; RN TO ASSESS AND TEACH, JACK STRIP ASSEMBLER/LINE PATROLLER TO OBSERVE AND TEACH AND PROVIDE EDUCATION ON ANEMIA. [code = ANEMIA MANAGEMENT; RN TO ASSESS AND TEACH, JACK STRIP ASSEMBLER/LINE PATROLLER TO OBSERVE AND TEACH AND PROVIDE EDUCATION ON ANEMIA.] Future Scheduled Test RN TO OBSE RVE, ASSESS, EVALUATE, AND DEVELOP AN INDIVIDUALIZED PLAN OF CARE. AGENCY MAY ACCEPT ORDERS FROM CONSULTING PHYSICIANS RN TO OBSERVE AND ASSESS, LINE PATROLLER/JACK STRIP ASSEMBLER TO OBSERVE FOR RISK FOR FALLS AND INSTRUCT IN FALL PREVENTION, HOME SAFETY, MEDICATION MANAGEMENT, INFECTION PREVENTION, AND NUTRITION MANAGEMENT. RN/LINE PATROLLER/JACK STRIP ASSEMBLER NURSE MAY PERFORM O2 SATURATION LEVEL ON ADMISSION AND PRN FOR RN TO ASSESS/LINE PATROLLER TO OBSERVE PATIENT, WITH NOTIFICATION TO THE PHYSICIAN IF SATURATION IS 90% IN THE ABSENCE OF MORE SPECIFIC PARAMETERS FROM THE PHYSICIAN. AGENCY MAY PERFORM A RESUMPTION OF CARE VISIT FOLLOWING ANY HOSPITAL ADMISSION. RN/LINE PATROLLER/JACK STRIP ASSEMBLER TO MONITOR CO-MORBID CONDITIONS LISTED ON THE PLAN OF CARE AND ANY NEW CONDITIONS THAT PRESENT THEMSELVES DURING THIS EPISODE TO IDENTIFY CHANGES AND INTERVENE TO MINIMIZE COMPLICATIONS. [code = RN TO OBSERVE, ASSESS, EVALUATE, AND DEVELOP AN INDIVIDUALIZED PLAN OF CARE. AGENCY MAY ACCEPT ORDERS FROM CONSULTING PHYSICIANS RN TO OBSERVE AND ASSESS, LINE PATROLLER/JACK STRIP ASSEMBLER TO OBSERVE FOR RISK FOR FALLS AND INSTRUCT IN FALL PREVENTION, HOME SAFETY, MEDICATION MANAGEMENT, INFECTION PREVENTION, AND NUTRITION MANAGEMENT. RN/LINE PATROLLER/JACK STRIP ASSEMBLER NURSE MAY PERFORM O2 SATURATION LEVEL ON ADMISSION AND PRN FOR RN TO ASSESS/LINE PATROLLER TO OBSERVE PATIENT, WITH NOTIFICATION TO THE PHYSICIAN IF SATURATION IS 90% IN THE ABSENCE OF MORE SPECIFIC PARAMETERS FROM THE PHYSICIAN. AGENCY MAY PERFORM A RESUMPTION OF CARE VISIT FOLLOWING ANY HOSPITAL ADMISSION. RN/LINE PATROLLER/JACK STRIP ASSEMBLER TO MONITOR CO-MORBID CONDITIONS LISTED ON THE PLAN OF CARE AND ANY NEW CONDITIONS THAT PRESENT THEMSELVES DURING THIS EPISODE TO IDENTIFY CHANGES AND INTERVENE TO MINIMIZE COMPLICATIONS.] Future Scheduled Test PAIN MANAG EMENT; RN TO ASSESS AND TEACH, JACK STRIP ASSEMBLER/LINE PATROLLER TO OBSERVE AND TEACH AND PROVIDE EDUCATION ON PAIN MANAGEMENT TECHNIQUES. [code = PAIN MANAGEMENT; RN TO ASSESS AND TEACH, JACK STRIP ASSEMBLER/LINE PATROLLER TO OBSERVE AND TEACH AND PROVIDE EDUCATION ON PAIN MANAGEMENT TECHNIQUES.] Future Scheduled Test RISK FOR H OSPITALIZATION; RN TO ASSESS/TEACH, JACK STRIP ASSEMBLER/LINE PATROLLER TO OBSERVE/TEACH PATIENT/CAREGIVER ON RISK FOR HOSPITALIZATION/EMERGENCY ROOM VISITS, TEACH SIGNS AND SYMPTOMS THAT PUT PATIENT AT RISK, WHEN TO NOTIFY NURSE/PHYSICIAN OF COMPLICATIONS/DECLINE, AND WHEN TO CALL 911. [code = RISK FOR HOSPITALIZATION; RN TO ASSESS/TEACH, JACK STRIP ASSEMBLER/LINE PATROLLER TO OBSERVE/TEACH PATIENT/CAREGIVER ON RISK FOR HOSPITALIZATION/EMERGENCY ROOM VISITS, TEACH SIGNS AND SYMPTOMS THAT PUT PATIENT AT RISK, WHEN TO NOTIFY NURSE/PHYSICIAN OF COMPLICATIONS/DECLINE, AND WHEN TO CALL 911.] Future Scheduled Test CARDIOVASC ULAR SYSTEM; RN TO ASSESS/TEACH, LINE PATROLLER/JACK STRIP ASSEMBLER TO OBSERVE/TEACH RELATED TO ALTERED CARDIOVASCULAR STATUS TO MINIMIZE COMPLICATIONS AND REDUCE HOSPITALIZATION. [code = CARDIOVASCULAR SYSTEM; RN TO ASSESS/TEACH, LINE PATROLLER/JACK STRIP ASSEMBLER TO OBSERVE/TEACH RELATED TO ALTERED CARDIOVASCULAR STATUS TO MINIMIZE COMPLICATIONS AND REDUCE HOSPITALIZATION.] Future Scheduled Test HYPERTENSI ON MANAGEMENT; RN TO ASSESS AND TEACH, LINE PATROLLER/JACK STRIP ASSEMBLER TO OBSERVE AND TEACH WARNING SIGNS AND SYMPTOMS TO AVOID HOSPITALIZATION. [code = HYPERTENSION MANAGEMENT; RN TO ASSESS AND TEACH, LINE PATROLLER/JACK STRIP ASSEMBLER TO OBSERVE AND TEACH WARNING SIGNS AND SYMPTOMS TO AVOID HOSPITALIZATION.] Future Scheduled Test HEART FAIL URE MONITORING RN/JACK STRIP ASSEMBLER/LINE PATROLLER TO MONITOR PATIENT FOR SIGNS AND SYMPTOMS OF HEART FAILURE EXACERBATION, MONITOR FOR ADHERENCE WITH MEDICATION AND HEART FAILURE MANAGEMENT REGIMEN. [code = HEART FAILURE MONITORING RN/JACK STRIP ASSEMBLER/LINE PATROLLER TO MONITOR PATIENT FOR SIGNS AND SYMPTOMS OF HEART FAILURE EXACERBATION, MONITOR FOR ADHERENCE WITH MEDICATION AND HEART FAILURE MANAGEMENT REGIMEN.] Future Scheduled Test DIABETES M ONITORING RN/JACK STRIP ASSEMBLER/LINE PATROLLER TO MONITOR BLOOD SUGAR LOG FOR BLOOD SUGAR READINGS THAT ARE BEING CHECKED BY PATIENT, CAREGIVER NEEDED FOR SIGNS AND SYMPTOMS OF HYPER/HYPOGLYCEMIA. PATIENT THERAPEUTIC BLOOD SUGAR PARAMETERS ARE 70 - 300. REPORT BLOOD SUGARS OUT OF RANGE TO PHYSICIAN. NURSE MAY PERFORM FINGER STICK BLOOD GLUCOSE NEEDED FOR SIGNS AND SYMPTOMS OF HYPO AND HYPERGLYCEMIA. RN/JACK STRIP ASSEMBLER/LINE PATROLLER TO MONITOR ADHERENCE OF PATIENT/CAREGIVER PERFORMING DIABETIC FOOT CARE AND MAY PERFORM DIABETIC FOOT CARE PRN. RN/JACK STRIP ASSEMBLER/LINE PATROLLER TO MONITOR FOR ADHERENCE TO DIABETIC SELF-CARE AND MANAGEMENT INCLUDING MEDICATIONS. [code = DIABETES MONITORING RN/JACK STRIP ASSEMBLER/LINE PATROLLER TO MONITOR BLOOD SUGAR LOG FOR BLOOD SUGAR READINGS THAT ARE BEING CHECKED BY PATIENT, CAREGIVER NEEDED FOR SIGNS AND SYMPTOMS OF HYPER/HYPOGLYCEMIA. PATIENT THERAPEUTIC BLOOD SUGAR PARAMETERS ARE 70 - 300. REPORT BLOOD SUGARS OUT OF RANGE TO PHYSICIAN. NURSE MAY PERFORM FINGER STICK BLOOD GLUCOSE NEEDED FOR SIGNS AND SYMPTOMS OF HYPO AND HYPERGLYCEMIA. RN/JACK STRIP ASSEMBLER/LINE PATROLLER TO MONITOR ADHERENCE OF PATIENT/CAREGIVER PERFORMING DIABETIC FOOT CARE AND MAY PERFORM DIABETIC FOOT CARE PRN. RN/JACK STRIP ASSEMBLER/LINE PATROLLER TO MONITOR FOR ADHERENCE TO DIABETIC SELF-CARE AND MANAGEMENT INCLUDING MEDICATIONS.] Future Scheduled Test HYPOTENSIO N MANAGEMENT; RN TO ASSESS AND TEACH/ LINE PATROLLER /JACK STRIP ASSEMBLER TO OBSERVE AND TEACH WARNING SIGNS AND SYMPTOMS TO AVOID HOSPITALIZATION. [code = HYPOTENSION MANAGEMENT; RN TO ASSESS AND TEACH/ LINE PATROLLER /JACK STRIP ASSEMBLER TO OBSERVE AND TEACH WARNING SIGNS AND SYMPTOMS TO AVOID HOSPITALIZATION.] Future Scheduled Test ARRHYTHMIA MANAGEMENT; RN TO ASSESS AND TEACH, LINE PATROLLER/JACK STRIP ASSEMBLER TO OBSERVE AND TEACH WARNING SIGNS AND SYMPTOMS TO AVOID HOSPITALIZATION. [code = ARRHYTHMIA MANAGEMENT; RN TO ASSESS AND TEACH, LINE PATROLLER/JACK STRIP ASSEMBLER TO OBSERVE AND TEACH WARNING SIGNS AND SYMPTOMS TO AVOID HOSPITALIZATION.] Future Scheduled Test MEDICATION MANAGEMENT; RN/LINE PATROLLER/JACK STRIP ASSEMBLER TO REVIEW MEDICATIONS FOR INTERACTIONS, EFFECTIVENESS OF DRUG THERAPY, AND SIGNS/SYMPTOMS OF ADVERSE REACTIONS. MAY INSTRUCT AND REINFORCE MEDICATION TEACHING RELATED TO THE USE OF MEDICATIONS, DOSAGE, FREQUENCY, PURPOSE, SIDE EFFECTS, AND TO REPORT COMPLICATIONS. [code = MEDICATION MANAGEMENT; RN/LINE PATROLLER/JACK STRIP ASSEMBLER TO REVIEW MEDICATIONS FOR INTERACTIONS, EFFECTIVENESS [...] EVAL UATE, OBSERVE / ASSESS, AND MONITOR, ETCHER APPRENTICE PHOTOENGRAVING TO OBSERVE AND MONITOR, PROVIDE SKILLED THERAPEUTIC INTERVENTION, ACTIVITY, EDUCATION, AND TRAINING TO ADDRESS GEN. WEAKNESS, POOR OVERALL ACTIVITY TOLERANCE, AND FUNCTIONAL LIMITATIONS IMPACTING SAFETY AND INDEPENDENCE. BED MOBILITY (PT/ETCHER APPRENTICE PHOTOENGRAVING) PT/ETCHER APPRENTICE PHOTOENGRAVING TO PROVIDE GAIT TRAINING FOR IMPROVED MOBILITY AND /OR TO NORMALIZE GAIT PATTERN THERAPEUTIC EXERCISES AND ESTABLISHING A HOME EXERCISE PROGRAM (PT/ETCHER APPRENTICE PHOTOENGRAVING) PT/ETCHER APPRENTICE PHOTOENGRAVING TO PROVIDE STAIR TRAINING PT / ETCHER APPRENTICE PHOTOENGRAVING TO MONITOR AND EDUCATE ON OXYGEN SATURATION DURING ADLS/IADLS, NOTIFY PHYSICIAN AND/OR THE RN CLINICAL CARPENTER LABOR SUPERVISOR FOR PHYSICIAN NOTIFICATION AND IF O2 SATS BELOW PHYSICIAN ORDERED PARAMETERS AFTER 10 MIN OF REST PT / ETCHER APPRENTICE PHOTOENGRAVING TO OBSERVE FOR EARLY SIGNS AND SYMPTOMS OF DEPRESSION OR DEPRESSION GETTING WORSE AND TO EDUCATE ON HOW TO FIND HELP. PT / ETCHER APPRENTICE PHOTOENGRAVING MAY EDUCATE ON PAIN MANAGEMENT CLINICALLY INDICATED, INCLUDING NON-PHARMACOLOGICAL PAIN REDUCTION TECHNIQUES PT / ETCHER APPRENTICE PHOTOENGRAVING TO MONITOR FOR HYPO/HYPERGLYCEMIA AND CONDUCT ROUTINE FOOT INSPECTIONS. RECORD PATIENT REPORTED BLOOD SUGAR LEVELS AND NOTIFY PHYSICIAN AND/OR THE RN CLINICAL CARPENTER LABOR SUPERVISOR FOR PHYSICIAN NOTIFICATION IF BLOOD SUGAR LEVELS ARE OUTSIDE ORDERED PARAMETERS. TEACH PATIENT/CAREGIVER ON DAILY FOOT INSPECTIONS PT / ETCHER APPRENTICE PHOTOENGRAVING TO INSTRUCT PATIENT/CAREGIVER ON RISK FOR HOSPITALIZATION/EMERGENCY ROOM VISITS, TEACH SIGNS AND SYMPTOMS THAT PUT PATIENT AT RISK, WHEN TO NOTIFY NURSE/PHYSICIAN OF COMPLICATIONS/DECLINE, AND WHEN TO CALL 911. PT/ETCHER APPRENTICE PHOTOENGRAVING TO EDUCATE ON ARTHRITIS SELF-MANAGEMENT PT / ETCHER APPRENTICE PHOTOENGRAVING TO EDUCATE ON HEART FAILURE SELF-MANAGEMENT PT / ETCHER APPRENTICE PHOTOENGRAVING TO EDUCATE ON HYPERTENSION SELF-MANAGEMENT PT TO ASSESS / ETCHER APPRENTICE PHOTOENGRAVING TO MONITOR CARDIO/RESPIRATORY SYSTEM; AND NOTIFY THE PHYSICIAN AND/OR THE RN CLINICAL CARPENTER LABOR SUPERVISOR FOR PHYSICIAN NOTIFICATION FOR EARLY SIGNS AND SYMPTOMS OF EXACERBATION OR DETERIORATION. PT / ETCHER APPRENTICE PHOTOENGRAVING TO EDUCATE ON ATRIAL FIBRILLATION SELF-MANAGEMENT. PT / ETCHER APPRENTICE PHOTOENGRAVING TO EDUCATE ON PNEUMONIA / ASPIRATION PNEUMONIA SELF-MANAGEMENT. PT/ETCHER APPRENTICE PHOTOENGRAVING TO IDENTIFY FALL RISK FACTORS; EDUCATE THE PATIENT/CAREGIVER ON WAYS TO REDUCE FALL RISK FACTORS AND ESTABLISH HOME EXERCISE PROGRAM TO MINIMIZE FALL RISK. MAY TEACH THE PATIENT FLOOR RECOVERY WHEN CLINICALLY APPROPRIATE [code = PT TO EVALUATE, OBSERVE / ASSESS, AND MONITOR, ETCHER APPRENTICE PHOTOENGRAVING TO OBSERVE AND MONITOR, PROVIDE SKILLED THERAPEUTIC INTERVENTION, ACTIVITY, EDUCATION, AND TRAINING TO ADDRESS GEN. WEAKNESS, POOR OVERALL ACTIVITY TOLERANCE, AND FUNCTIONAL LIMITATIONS IMPACTING SAFETY AND INDEPENDENCE. BED MOBILITY (PT/ETCHER APPRENTICE PHOTOENGRAVING) PT/ETCHER APPRENTICE PHOTOENGRAVING TO PROVIDE GAIT TRAINING FOR IMPROVED MOBILITY AND /OR TO NORMALIZE GAIT PATTERN THERAPEUTIC EXERCISES AND ESTABLISHING A HOME EXERCISE PROGRAM (PT/ETCHER APPRENTICE PHOTOENGRAVING) PT/ETCHER APPRENTICE PHOTOENGRAVING TO PROVIDE STAIR TRAINING PT / ETCHER APPRENTICE PHOTOENGRAVING TO MONITOR AND EDUCATE ON OXYGEN SATURATION DURING ADLS/IADLS, NOTIFY PHYSICIAN AND/OR THE RN CLINICAL CARPENTER LABOR SUPERVISOR FOR PHYSICIAN NOTIFICATION AND IF O2 SATS BELOW PHYSICIAN ORDERED PARAMETERS AFTER 10 MIN OF REST PT / ETCHER APPRENTICE PHOTOENGRAVING TO OBSERVE FOR EARLY SIGNS AND SYMPTOMS OF DEPRESSION OR DEPRESSION GETTING WORSE AND TO EDUCATE ON HOW TO FIND HELP. PT / ETCHER APPRENTICE PHOTOENGRAVING MAY EDUCATE ON PAIN MANAGEMENT CLINICALLY INDICATED, INCLUDING NON-PHARMACOLOGICAL PAIN REDUCTION TECHNIQUES PT / ETCHER APPRENTICE PHOTOENGRAVING TO MONITOR FOR HYPO/HYPERGLYCEMIA AND CONDUCT ROUTINE FOOT INSPECTIONS. RECORD PATIENT REPORTED BLOOD SUGAR LEVELS AND NOTIFY PHYSICIAN AND/OR THE RN CLINICAL CARPENTER LABOR SUPERVISOR FOR PHYSICIAN NOTIFICATION IF BLOOD SUGAR LEVELS ARE OUTSIDE ORDERED PARAMETERS. TEACH PATIENT/CAREGIVER ON DAILY FOOT INSPECTIONS PT / ETCHER APPRENTICE PHOTOENGRAVING TO INSTRUCT PATIENT/CAREGIVER ON RISK FOR HOSPITALIZATION/EMERGENCY ROOM VISITS, TEACH SIGNS AND SYMPTOMS THAT PUT PATIENT AT RISK, WHEN TO NOTIFY NURSE/PHYSICIAN OF COMPLICATIONS/DECLINE, AND WHEN TO CALL 911. PT/ETCHER APPRENTICE PHOTOENGRAVING TO EDUCATE ON ARTHRITIS SELF-MANAGEMENT PT / ETCHER APPRENTICE PHOTOENGRAVING TO EDUCATE ON HEART FAILURE SELF-MANAGEMENT PT / ETCHER APPRENTICE PHOTOENGRAVING TO EDUCATE ON HYPERTENSION SELF-MANAGEMENT PT TO ASSESS / ETCHER APPRENTICE PHOTOENGRAVING TO MONITOR CARDIO/RESPIRATORY SYSTEM; AND NOTIFY THE PHYSICIAN AND/OR THE RN CLINICAL CARPENTER LABOR SUPERVISOR FOR PHYSICIAN NOTIFICATION FOR EARLY SIGNS AND SYMPTOMS OF EXACERBATION OR DETERIORATION. PT / ETCHER APPRENTICE PHOTOENGRAVING TO EDUCATE ON ATRIAL FIBRILLATION SELF-MANAGEMENT. PT / ETCHER APPRENTICE PHOTOENGRAVING TO EDUCATE ON PNEUMONIA / ASPIRATION PNEUMONIA SELF-MANAGEMENT. PT/ETCHER APPRENTICE PHOTOENGRAVING TO IDENTIFY FALL RISK FACTORS; EDUCATE THE PATIENT/CAREGIVER ON WAYS TO REDUCE FALL RISK FACTORS AND ESTABLISH HOME EXERCISE PROGRAM TO MINIMIZE FALL RISK. MAY TEACH THE PATIENT FLOOR RECOVERY WHEN CLINICALLY APPROPRIATE] Future Scheduled Test AGENCY MAY PERFORM A RESUMPTION OF CARE VISIT FOLLOWING ANY HOSPITAL ADMISSION. OT TO EVALUATE, OBSERVE / ASSESS, AND MONITOR, CENTRAL AISLE CASHIER TO OBSERVE AND MONITOR, PROVIDE SKILLED THERAPEUTIC INTERVENTION, ACTIVITY, EDUCATION, AND TRAINING TO ADDRESS SAFETY AND INDEPENDENCE OF ADLS AND FUNCTIONAL TRANSFERS IN HOME ENVIRONMENT. ACTIVITIES OF DAILY LIVING (OT/MARIANNE) THERAPEUTIC EXERCISE (OT/CENTRAL AISLE CASHIER) ENERGY CONSERVATION/ACTIVITY DEMAND (OT/CENTRAL AISLE CASHIER) OT/CENTRAL AISLE CASHIER TO MONITOR AND EDUCATE ON OXYGEN SATURATION DURING ADLS/IADLS, NOTIFY PHYSICIAN AND/OR THE RN CLINICAL CARPENTER LABOR SUPERVISOR FOR PHYSICIAN NOTIFICATION AND IF O2 SATS BELOW 90% AFTER 10 MIN OF REST. OT / CENTRAL AISLE CASHIER TO IDENTIFY FALL RISK FACTORS; EDUCATE THE PATIENT/CAREGIVER ON WAYS TO REDUCE FALL RISK FACTORS AND ESTABLISH HOME EXERCISE PROGRAM TO MINIMIZE FALL RISK. MAY TEACH THE PATIENT FLOOR RECOVERY WHEN CLINICALLY APPROPRIATE. OT/CENTRAL AISLE CASHIER TO EDUCATE ON HYPERTENSION SELF-MANAGEMENT OT/MARIANNE TO EDUCATE ON ATRIAL FIBRILLATION SELF-MANAGEMENT. [code = AGENCY MAY PERFORM A RESUMPTION OF CARE VISIT FOLLOWING ANY HOSPITAL ADMISSION. OT TO EVALUATE, OBSERVE / ASSESS, AND MONITOR, CENTRAL AISLE CASHIER TO OBSERVE AND MONITOR, PROVIDE SKILLED THERAPEUTIC INTERVENTION, ACTIVITY, EDUCATION, AND TRAINING TO ADDRESS SAFETY AND INDEPENDENCE OF ADLS AND FUNCTIONAL TRANSFERS IN HOME ENVIRONMENT. ACTIVITIES OF DAILY LIVING (OT/MARIANNE) THERAPEUTIC EXERCISE (OT/CENTRAL AISLE CASHIER) ENERGY CONSERVATION/ACTIVITY DEMAND (OT/MARIANNE) OT/CENTRAL AISLE CASHIER TO MONITOR AND EDUCATE ON OXYGEN SATURATION DURING ADLS/IADLS, NOTIFY PHYSICIAN AND/OR THE RN CLINICAL CARPENTER LABOR SUPERVISOR FOR PHYSICIAN NOTIFICATION AND IF O2 SATS BELOW 90% AFTER 10 MIN OF REST. OT / MARIANNE TO IDENTIFY FALL RISK FACTORS; EDUCATE THE PATIENT/CAREGIVER ON WAYS TO REDUCE FALL RISK FACTORS AND ESTABLISH HOME EXERCISE PROGRAM TO MINIMIZE FALL RISK. MAY TEACH THE PATIENT FLOOR RECOVERY WHEN CLINICALLY APPROPRIATE. OT/CENTRAL AISLE CASHIER TO EDUCATE ON HYPERTENSION SELF-MANAGEMENT OT/MARIANNE TO [...] 2025-04-07 00:00:00 Outpatient NEW ADMISSION [facility] [id number]
--- OUTSIDE RECORDS SUMMARY | 2025-04-06 18:00 | XMS_ITS | Clinical Summary ---
Author Organization Unknown Care Team Providers Care Wearing Apparel Shaker Name Role Phone DIGNA ARIEL, ESTRELLA Unavailable Unava dinora STOKES RN, FRANKIE Unavailable Unavailabl e KARI PT, DIDI Unavailable Unavailable NAT SOFT WATER MECHANIC, GAUDENCIO Unavailable Unavailabl e RADHA OT, ROLANDO Unavailable Unavailable JOANNE STEVEN, HATTIE Unavailable Unavailable Payers Payer Name Policy Type Policy Number Effective Date Expira tion Date MEDICARE.[facility] [id number] Problems Condition Name Condition Details Condition Category Status Onset Date Resolution Date Last Treatment Date Treating Clinician Comments 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 02-07 [...] OF PNEUMONIA (RECURRENT) Active 02-07 00:00: 00 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) USE OF SYSTEMIC STEROIDS Active 02-07 [...] 80 mg tablet 02-07 00:00: 00 Yes [id number] CHOLESTEROL 1 tablet DAILY 1 tablet DAILY (route: oral) Med Classific ation: Cardiovas cular Therapy Agents digoxin 125 mcg (0.125 mg) tablet 02-07 00:00: 00 02-21 23:59 :00 No [id number] HEART RHYTHM 1 tablet DAILY 1 tablet DAILY (route: oral) Med Classific ation: Cardiovas cular Therapy Agents escitalopra m 10 mg tablet 02-07 00:00: 00 Yes [id number] MOOD 1 tablet DAILY 1 tablet DAILY (route: oral) Med Classific ation: Central Nervous System Agents ezetimibe 10 mg tablet 02-07 00:00: 00 Yes [id number] CHOLESTEROL 1 tablet DAILY 1 tablet DAILY (route: oral) Med Classific ation: Cardiovas cular Therapy Agents metoprolol succinate ER 25 mg tablet,exte nded release 24 hr 02-07 00:00: 00 02-21 23:59 :00 No [id number] BLOOD PRESSURE 0.5 tablet DAILY 0.5 tablet DAILY (route: oral) Med Classific ation: Cardiovas cular Therapy Agents pantoprazol e 40 mg tablet,joão yed release 02-07 00:00: 00 02-21 23:59 :00 No [id number] STOMACH ACID 1 tablet DAILY 1 tablet DAILY (route: oral) Med Classific ation: Gastroint estinal Therapy Agents prednisone 5 mg tablet 02-07 00:00: 00 Yes [id number] ADRENAL INSUFFICIEN CY 1 tablet DAILY 1 tablet DAILY (route: oral) Med Classific ation: Endocrine spironolact one 25 mg tablet 02-07 00:00: 00 Yes [id number] FLUID RETENTION 0.5 tablet DAILY 0.5 tablet DAILY (route: oral) Med Classific ation: Cardiovas cular Therapy Agents tamsulosin 0.4 mg capsule 02-07 00:00: 00 02-21 23:59 :00 No [id number] URINARY HEALTH 1 capsule DAILY 1 capsule DAILY (route: oral) Med Classific ation: Genitouri nary Therapy acetaminoph en 325 mg tablet 2024-05 00:00: 00 Yes [id number] PAIN 2 tablet 2 TIMES DAILY 2 tablet 2 TIMES DAILY (route: oral) Med Classific ation: Analgesic , Anti-infl ammatory or Antipyret ic aspirin 81 mg tablet 2024-05 00:00: 00 Yes [id number] ANTICOAGULA NT 1 tablet DAILY 1 tablet DAILY (route: oral) Med Classific ation: Hematolog ical Agents ipratropium 0.5 mg-albutero l 3 mg (2.5 mg base)/3 mL nebulizatio n soln 2024-05 00:00: 00 Yes [id number] COPD 3 mL EVERY 6 HOURS 3 mL EVERY 6 HOURS (route: inhalation ) Med Classific ation: Respirato ry Therapy Agents Lanoxin 62.5 mcg (0.0625 mg) tablet 2024-05 00:00: 00 Yes [id number] CHF 1 tablet DAILY 1 tablet DAILY (route: oral) Med Classific ation: Cardiovas cular Therapy Agents Lasix 20 mg tablet 2024-05 00:00: 00 Yes [id number] CHF 1 tablet DAILY 1 tablet DAILY (route: oral) Med Classific ation: Cardiovas cular Therapy Agents Toprol XL 25 mg tablet,exte nded release 2024-05 00:00: 00 Yes [id number] BP 25 mg DAILY 25 mg DAILY [...] SYSTEM MANAGEMENT; RN TO ASSESS AND TEACH, POLYTECHNIC TEACHER/BUNGHOLE BORER TO OBSERVE AND TEACH RELATED TO ALTERED RESPIRATORY STATUS TO MINIMIZE COMPLICATIONS AND REDUCE HOSPITALIZATION. [code = SN 1WK9 PT 1WK1 OT EFFECTIVE 02/10/2025K1 RESPIRATORY SYSTEM MANAGEMENT; RN TO ASSESS AND TEACH, POLYTECHNIC TEACHER/BUNGHOLE BORER TO OBSERVE AND TEACH RELATED TO ALTERED RESPIRATORY STATUS TO MINIMIZE COMPLICATIONS AND REDUCE HOSPITALIZATION.] Future Scheduled Test TRACHEOSTO MY CARE MANAGEMENT; RN/POLYTECHNIC TEACHER/BUNGHOLE BORER TO INSTRUCT PATIENT/CAREGIVER ON CARE AND MANAGEMENT OF TRACHEOSTOMY. RN/ POLYTECHNIC TEACHER/BUNGHOLE BORER TO PROVIDE SKILLED TEACHING ON TRACH COLLAR SUCTIONING PRN WITH 14 FR SUCTION CATHETER PER PATIENT TRACH CARE WITH INNER CANNULA: REMOVE INNER CANNULA, CLEANSE WITH NORMAL SALINE AND OR STERILE WATER AND REINSERT NON-DISPOSABLE CANNULA SIZE OF INNER CANNULA 5 BROOKS [code = TRACHEOSTOMY CARE MANAGEMENT; RN/POLYTECHNIC TEACHER/BUNGHOLE BORER TO INSTRUCT PATIENT/CAREGIVER ON CARE AND MANAGEMENT OF TRACHEOSTOMY. RN/ POLYTECHNIC TEACHER/BUNGHOLE BORER TO PROVIDE SKILLED TEACHING ON TRACH COLLAR SUCTIONING PRN WITH 14 FR SUCTION CATHETER PER PATIENT TRACH CARE WITH INNER CANNULA: REMOVE INNER CANNULA, CLEANSE WITH NORMAL SALINE AND OR STERILE WATER AND REINSERT NON-DISPOSABLE CANNULA SIZE OF INNER CANNULA 5 BROOKS] Future Scheduled Test FALL REDUC TION MANAGEMENT; RN TO ASSESS AND OBSERVE, POLYTECHNIC TEACHER/BUNGHOLE BORER TO OBSERVE FALL RISK FACTORS AND EDUCATE PATIENT/CAREGIVER ON STRATEGIES TO MINIMIZE THE RISK OF FALLING. [code = FALL REDUCTION MANAGEMENT; RN TO ASSESS AND OBSERVE, POLYTECHNIC TEACHER/BUNGHOLE BORER TO OBSERVE FALL RISK FACTORS AND EDUCATE PATIENT/CAREGIVER ON STRATEGIES TO MINIMIZE THE RISK OF FALLING.] Future Scheduled Test ANEMIA MAN AGEMENT; RN TO ASSESS AND TEACH, BUNGHOLE BORER/POLYTECHNIC TEACHER TO OBSERVE AND TEACH AND PROVIDE EDUCATION ON ANEMIA. [code = ANEMIA MANAGEMENT; RN TO ASSESS AND TEACH, BUNGHOLE BORER/POLYTECHNIC TEACHER TO OBSERVE AND TEACH AND PROVIDE EDUCATION ON ANEMIA.] Future Scheduled Test RN TO OBSE RVE, ASSESS, EVALUATE, AND DEVELOP AN INDIVIDUALIZED PLAN OF CARE. AGENCY MAY ACCEPT ORDERS FROM CONSULTING PHYSICIANS RN TO OBSERVE AND ASSESS, POLYTECHNIC TEACHER/BUNGHOLE BORER TO OBSERVE FOR RISK FOR FALLS AND INSTRUCT IN FALL PREVENTION, HOME SAFETY, MEDICATION MANAGEMENT, INFECTION PREVENTION, AND NUTRITION MANAGEMENT. RN/POLYTECHNIC TEACHER/BUNGHOLE BORER NURSE MAY PERFORM O2 SATURATION LEVEL ON ADMISSION AND PRN FOR RN TO ASSESS/POLYTECHNIC TEACHER TO OBSERVE PATIENT, WITH NOTIFICATION TO THE PHYSICIAN IF SATURATION IS 90% IN THE ABSENCE OF MORE SPECIFIC PARAMETERS FROM THE PHYSICIAN. AGENCY MAY PERFORM A RESUMPTION OF CARE VISIT FOLLOWING ANY HOSPITAL ADMISSION. RN/POLYTECHNIC TEACHER/BUNGHOLE BORER TO MONITOR CO-MORBID CONDITIONS LISTED ON THE PLAN OF CARE AND ANY NEW CONDITIONS THAT PRESENT THEMSELVES DURING THIS EPISODE TO IDENTIFY CHANGES AND INTERVENE TO MINIMIZE COMPLICATIONS. [code = RN TO OBSERVE, ASSESS, EVALUATE, AND DEVELOP AN INDIVIDUALIZED PLAN OF CARE. AGENCY MAY ACCEPT ORDERS FROM CONSULTING PHYSICIANS RN TO OBSERVE AND ASSESS, POLYTECHNIC TEACHER/BUNGHOLE BORER TO OBSERVE FOR RISK FOR FALLS AND INSTRUCT IN FALL PREVENTION, HOME SAFETY, MEDICATION MANAGEMENT, INFECTION PREVENTION, AND NUTRITION MANAGEMENT. RN/POLYTECHNIC TEACHER/BUNGHOLE BORER NURSE MAY PERFORM O2 SATURATION LEVEL ON ADMISSION AND PRN FOR RN TO ASSESS/POLYTECHNIC TEACHER TO OBSERVE PATIENT, WITH NOTIFICATION TO THE PHYSICIAN IF SATURATION IS 90% IN THE ABSENCE OF MORE SPECIFIC PARAMETERS FROM THE PHYSICIAN. AGENCY MAY PERFORM A RESUMPTION OF CARE VISIT FOLLOWING ANY HOSPITAL ADMISSION. RN/POLYTECHNIC TEACHER/BUNGHOLE BORER TO MONITOR CO-MORBID CONDITIONS LISTED ON THE PLAN OF CARE AND ANY NEW CONDITIONS THAT PRESENT THEMSELVES DURING THIS EPISODE TO IDENTIFY CHANGES AND INTERVENE TO MINIMIZE COMPLICATIONS.] Future Scheduled Test PAIN MANAG EMENT; RN TO ASSESS AND TEACH, BUNGHOLE BORER/POLYTECHNIC TEACHER TO OBSERVE AND TEACH AND PROVIDE EDUCATION ON PAIN MANAGEMENT TECHNIQUES. [code = PAIN MANAGEMENT; RN TO ASSESS AND TEACH, BUNGHOLE BORER/POLYTECHNIC TEACHER TO OBSERVE AND TEACH AND PROVIDE EDUCATION ON PAIN MANAGEMENT TECHNIQUES.] Future Scheduled Test RISK FOR H OSPITALIZATION; RN TO ASSESS/TEACH, BUNGHOLE BORER/POLYTECHNIC TEACHER TO OBSERVE/TEACH PATIENT/CAREGIVER ON RISK FOR HOSPITALIZATION/EMERGENCY ROOM VISITS, TEACH SIGNS AND SYMPTOMS THAT PUT PATIENT AT RISK, WHEN TO NOTIFY NURSE/PHYSICIAN OF COMPLICATIONS/DECLINE, AND WHEN TO CALL 911. [code = RISK FOR HOSPITALIZATION; RN TO ASSESS/TEACH, BUNGHOLE BORER/POLYTECHNIC TEACHER TO OBSERVE/TEACH PATIENT/CAREGIVER ON RISK FOR HOSPITALIZATION/EMERGENCY ROOM VISITS, TEACH SIGNS AND SYMPTOMS THAT PUT PATIENT AT RISK, WHEN TO NOTIFY NURSE/PHYSICIAN OF COMPLICATIONS/DECLINE, AND WHEN TO CALL 911.] Future Scheduled Test CARDIOVASC ULAR SYSTEM; RN TO ASSESS/TEACH, POLYTECHNIC TEACHER/BUNGHOLE BORER TO OBSERVE/TEACH RELATED TO ALTERED CARDIOVASCULAR STATUS TO MINIMIZE COMPLICATIONS AND REDUCE HOSPITALIZATION. [code = CARDIOVASCULAR SYSTEM; RN TO ASSESS/TEACH, POLYTECHNIC TEACHER/BUNGHOLE BORER TO OBSERVE/TEACH RELATED TO ALTERED CARDIOVASCULAR STATUS TO MINIMIZE COMPLICATIONS AND REDUCE HOSPITALIZATION.] Future Scheduled Test HYPERTENSI ON MANAGEMENT; RN TO ASSESS AND TEACH, POLYTECHNIC TEACHER/BUNGHOLE BORER TO OBSERVE AND TEACH WARNING SIGNS AND SYMPTOMS TO AVOID HOSPITALIZATION. [code = HYPERTENSION MANAGEMENT; RN TO ASSESS AND TEACH, POLYTECHNIC TEACHER/BUNGHOLE BORER TO OBSERVE AND TEACH WARNING SIGNS AND SYMPTOMS TO AVOID HOSPITALIZATION.] Future Scheduled Test HEART FAIL URE MONITORING RN/BUNGHOLE BORER/POLYTECHNIC TEACHER TO MONITOR PATIENT FOR SIGNS AND SYMPTOMS OF HEART FAILURE EXACERBATION, MONITOR FOR ADHERENCE WITH MEDICATION AND HEART FAILURE MANAGEMENT REGIMEN. [code = HEART FAILURE MONITORING RN/BUNGHOLE BORER/POLYTECHNIC TEACHER TO MONITOR PATIENT FOR SIGNS AND SYMPTOMS OF HEART FAILURE EXACERBATION, MONITOR FOR ADHERENCE WITH MEDICATION AND HEART FAILURE MANAGEMENT REGIMEN.] Future Scheduled Test DIABETES M ONITORING RN/BUNGHOLE BORER/POLYTECHNIC TEACHER TO MONITOR BLOOD SUGAR LOG FOR BLOOD SUGAR READINGS THAT ARE BEING CHECKED BY PATIENT, CAREGIVER NEEDED FOR SIGNS AND SYMPTOMS OF HYPER/HYPOGLYCEMIA. PATIENT THERAPEUTIC BLOOD SUGAR PARAMETERS ARE 70 - 300. REPORT BLOOD SUGARS OUT OF RANGE TO PHYSICIAN. NURSE MAY PERFORM FINGER STICK BLOOD GLUCOSE NEEDED FOR SIGNS AND SYMPTOMS OF HYPO AND HYPERGLYCEMIA. RN/BUNGHOLE BORER/POLYTECHNIC TEACHER TO MONITOR ADHERENCE OF PATIENT/CAREGIVER PERFORMING DIABETIC FOOT CARE AND MAY PERFORM DIABETIC FOOT CARE PRN. RN/BUNGHOLE BORER/POLYTECHNIC TEACHER TO MONITOR FOR ADHERENCE TO DIABETIC SELF-CARE AND MANAGEMENT INCLUDING MEDICATIONS. [code = DIABETES MONITORING RN/BUNGHOLE BORER/POLYTECHNIC TEACHER TO MONITOR BLOOD SUGAR LOG FOR BLOOD SUGAR READINGS THAT ARE BEING CHECKED BY PATIENT, CAREGIVER NEEDED FOR SIGNS AND SYMPTOMS OF HYPER/HYPOGLYCEMIA. PATIENT THERAPEUTIC BLOOD SUGAR PARAMETERS ARE 70 - 300. REPORT BLOOD SUGARS OUT OF RANGE TO PHYSICIAN. NURSE MAY PERFORM FINGER STICK BLOOD GLUCOSE NEEDED FOR SIGNS AND SYMPTOMS OF HYPO AND HYPERGLYCEMIA. RN/BUNGHOLE BORER/POLYTECHNIC TEACHER TO MONITOR ADHERENCE OF PATIENT/CAREGIVER PERFORMING DIABETIC FOOT CARE AND MAY PERFORM DIABETIC FOOT CARE PRN. RN/BUNGHOLE BORER/POLYTECHNIC TEACHER TO MONITOR FOR ADHERENCE TO DIABETIC SELF-CARE AND MANAGEMENT INCLUDING MEDICATIONS.] Future Scheduled Test HYPOTENSIO N MANAGEMENT; RN TO ASSESS AND TEACH/ POLYTECHNIC TEACHER /BUNGHOLE BORER TO OBSERVE AND TEACH WARNING SIGNS AND SYMPTOMS TO AVOID HOSPITALIZATION. [code = HYPOTENSION MANAGEMENT; RN TO ASSESS AND TEACH/ POLYTECHNIC TEACHER /BUNGHOLE BORER TO OBSERVE AND TEACH WARNING SIGNS AND SYMPTOMS TO AVOID HOSPITALIZATION.] Future Scheduled Test ARRHYTHMIA MANAGEMENT; RN TO ASSESS AND TEACH, POLYTECHNIC TEACHER/BUNGHOLE BORER TO OBSERVE AND TEACH WARNING SIGNS AND SYMPTOMS TO AVOID HOSPITALIZATION. [code = ARRHYTHMIA MANAGEMENT; RN TO ASSESS AND TEACH, POLYTECHNIC TEACHER/BUNGHOLE BORER TO OBSERVE AND TEACH WARNING SIGNS AND SYMPTOMS TO AVOID HOSPITALIZATION.] Future Scheduled Test MEDICATION MANAGEMENT; RN/POLYTECHNIC TEACHER/BUNGHOLE BORER TO REVIEW MEDICATIONS FOR INTERACTIONS, EFFECTIVENESS OF DRUG THERAPY, AND SIGNS/SYMPTOMS OF ADVERSE REACTIONS. MAY INSTRUCT AND REINFORCE MEDICATION TEACHING RELATED TO THE USE OF MEDICATIONS, DOSAGE, FREQUENCY, PURPOSE, SIDE EFFECTS, AND TO REPORT COMPLICATIONS. [code = MEDICATION MANAGEMENT; RN/POLYTECHNIC TEACHER/BUNGHOLE BORER TO REVIEW MEDICATIONS FOR INTERACTIONS, EFFECTIVENESS OF [...] EVAL UATE, OBSERVE / ASSESS, AND MONITOR, SOFT WATER MECHANIC TO OBSERVE AND MONITOR, PROVIDE SKILLED THERAPEUTIC INTERVENTION, ACTIVITY, EDUCATION, AND TRAINING TO ADDRESS GEN. WEAKNESS, POOR OVERALL ACTIVITY TOLERANCE, AND FUNCTIONAL LIMITATIONS IMPACTING SAFETY AND INDEPENDENCE. BED MOBILITY (PT/SOFT WATER MECHANIC) PT/SOFT WATER MECHANIC TO PROVIDE GAIT TRAINING FOR IMPROVED MOBILITY AND /OR TO NORMALIZE GAIT PATTERN THERAPEUTIC EXERCISES AND ESTABLISHING A HOME EXERCISE PROGRAM (PT/SOFT WATER MECHANIC) PT/SOFT WATER MECHANIC TO PROVIDE STAIR TRAINING PT / SOFT WATER MECHANIC TO MONITOR AND EDUCATE ON OXYGEN SATURATION DURING ADLS/IADLS, NOTIFY PHYSICIAN AND/OR THE RN CLINICAL VISUAL DISPLAY MANAGER FOR PHYSICIAN NOTIFICATION AND IF O2 SATS BELOW PHYSICIAN ORDERED PARAMETERS AFTER 10 MIN OF REST PT / SOFT WATER MECHANIC TO OBSERVE FOR EARLY SIGNS AND SYMPTOMS OF DEPRESSION OR DEPRESSION GETTING WORSE AND TO EDUCATE ON HOW TO FIND HELP. PT / SOFT WATER MECHANIC MAY EDUCATE ON PAIN MANAGEMENT CLINICALLY INDICATED, INCLUDING NON-PHARMACOLOGICAL PAIN REDUCTION TECHNIQUES PT / SOFT WATER MECHANIC TO MONITOR FOR HYPO/HYPERGLYCEMIA AND CONDUCT ROUTINE FOOT INSPECTIONS. RECORD PATIENT REPORTED BLOOD SUGAR LEVELS AND NOTIFY PHYSICIAN AND/OR THE RN CLINICAL VISUAL DISPLAY MANAGER FOR PHYSICIAN NOTIFICATION IF BLOOD SUGAR LEVELS ARE OUTSIDE ORDERED PARAMETERS. TEACH PATIENT/CAREGIVER ON DAILY FOOT INSPECTIONS PT / SOFT WATER MECHANIC TO INSTRUCT PATIENT/CAREGIVER ON RISK FOR HOSPITALIZATION/EMERGENCY ROOM VISITS, TEACH SIGNS AND SYMPTOMS THAT PUT PATIENT AT RISK, WHEN TO NOTIFY NURSE/PHYSICIAN OF COMPLICATIONS/DECLINE, AND WHEN TO CALL 911. PT/SOFT WATER MECHANIC TO EDUCATE ON ARTHRITIS SELF-MANAGEMENT PT / SOFT WATER MECHANIC TO EDUCATE ON HEART FAILURE SELF-MANAGEMENT PT / SOFT WATER MECHANIC TO EDUCATE ON HYPERTENSION SELF-MANAGEMENT PT TO ASSESS / SOFT WATER MECHANIC TO MONITOR CARDIO/RESPIRATORY SYSTEM; AND NOTIFY THE PHYSICIAN AND/OR THE RN CLINICAL VISUAL DISPLAY MANAGER FOR PHYSICIAN NOTIFICATION FOR EARLY SIGNS AND SYMPTOMS OF EXACERBATION OR DETERIORATION. PT / SOFT WATER MECHANIC TO EDUCATE ON ATRIAL FIBRILLATION SELF-MANAGEMENT. PT / SOFT WATER MECHANIC TO EDUCATE ON PNEUMONIA / ASPIRATION PNEUMONIA SELF-MANAGEMENT. PT/SOFT WATER MECHANIC TO IDENTIFY FALL RISK FACTORS; EDUCATE THE PATIENT/CAREGIVER ON WAYS TO REDUCE FALL RISK FACTORS AND ESTABLISH HOME EXERCISE PROGRAM TO MINIMIZE FALL RISK. MAY TEACH THE PATIENT FLOOR RECOVERY WHEN CLINICALLY APPROPRIATE [code = PT TO EVALUATE, OBSERVE / ASSESS, AND MONITOR, SOFT WATER MECHANIC TO OBSERVE AND MONITOR, PROVIDE SKILLED THERAPEUTIC INTERVENTION, ACTIVITY, EDUCATION, AND TRAINING TO ADDRESS GEN. WEAKNESS, POOR OVERALL ACTIVITY TOLERANCE, AND FUNCTIONAL LIMITATIONS IMPACTING SAFETY AND INDEPENDENCE. BED MOBILITY (PT/SOFT WATER MECHANIC) PT/SOFT WATER MECHANIC TO PROVIDE GAIT TRAINING FOR IMPROVED MOBILITY AND /OR TO NORMALIZE GAIT PATTERN THERAPEUTIC EXERCISES AND ESTABLISHING A HOME EXERCISE PROGRAM (PT/SOFT WATER MECHANIC) PT/SOFT WATER MECHANIC TO PROVIDE STAIR TRAINING PT / SOFT WATER MECHANIC TO MONITOR AND EDUCATE ON OXYGEN SATURATION DURING ADLS/IADLS, NOTIFY PHYSICIAN AND/OR THE RN CLINICAL VISUAL DISPLAY MANAGER FOR PHYSICIAN NOTIFICATION AND IF O2 SATS BELOW PHYSICIAN ORDERED PARAMETERS AFTER 10 MIN OF REST PT / SOFT WATER MECHANIC TO OBSERVE FOR EARLY SIGNS AND SYMPTOMS OF DEPRESSION OR DEPRESSION GETTING WORSE AND TO EDUCATE ON HOW TO FIND HELP. PT / SOFT WATER MECHANIC MAY EDUCATE ON PAIN MANAGEMENT CLINICALLY INDICATED, INCLUDING NON-PHARMACOLOGICAL PAIN REDUCTION TECHNIQUES PT / SOFT WATER MECHANIC TO MONITOR FOR HYPO/HYPERGLYCEMIA AND CONDUCT ROUTINE FOOT INSPECTIONS. RECORD PATIENT REPORTED BLOOD SUGAR LEVELS AND NOTIFY PHYSICIAN AND/OR THE RN CLINICAL VISUAL DISPLAY MANAGER FOR PHYSICIAN NOTIFICATION IF BLOOD SUGAR LEVELS ARE OUTSIDE ORDERED PARAMETERS. TEACH PATIENT/CAREGIVER ON DAILY FOOT INSPECTIONS PT / SOFT WATER MECHANIC TO INSTRUCT PATIENT/CAREGIVER ON RISK FOR HOSPITALIZATION/EMERGENCY ROOM VISITS, TEACH SIGNS AND SYMPTOMS THAT PUT PATIENT AT RISK, WHEN TO NOTIFY NURSE/PHYSICIAN OF COMPLICATIONS/DECLINE, AND WHEN TO CALL 911. PT/SOFT WATER MECHANIC TO EDUCATE ON ARTHRITIS SELF-MANAGEMENT PT / SOFT WATER MECHANIC TO EDUCATE ON HEART FAILURE SELF-MANAGEMENT PT / SOFT WATER MECHANIC TO EDUCATE ON HYPERTENSION SELF-MANAGEMENT PT TO ASSESS / SOFT WATER MECHANIC TO MONITOR CARDIO/RESPIRATORY SYSTEM; AND NOTIFY THE PHYSICIAN AND/OR THE RN CLINICAL VISUAL DISPLAY MANAGER FOR PHYSICIAN NOTIFICATION FOR EARLY SIGNS AND SYMPTOMS OF EXACERBATION OR DETERIORATION. PT / SOFT WATER MECHANIC TO EDUCATE ON ATRIAL FIBRILLATION SELF-MANAGEMENT. PT / SOFT WATER MECHANIC TO EDUCATE ON PNEUMONIA / ASPIRATION PNEUMONIA SELF-MANAGEMENT. PT/SOFT WATER MECHANIC TO IDENTIFY FALL RISK FACTORS; EDUCATE THE PATIENT/CAREGIVER ON WAYS TO REDUCE FALL RISK FACTORS AND ESTABLISH HOME EXERCISE PROGRAM TO MINIMIZE FALL RISK. MAY TEACH THE PATIENT FLOOR RECOVERY WHEN CLINICALLY APPROPRIATE] Future Scheduled Test AGENCY MAY PERFORM A RESUMPTION OF CARE VISIT FOLLOWING ANY HOSPITAL ADMISSION. OT TO EVALUATE, OBSERVE / ASSESS, AND MONITOR, MOLD WORKER TO OBSERVE AND MONITOR, PROVIDE SKILLED THERAPEUTIC INTERVENTION, ACTIVITY, EDUCATION, AND TRAINING TO ADDRESS SAFETY AND INDEPENDENCE OF ADLS AND FUNCTIONAL TRANSFERS IN HOME ENVIRONMENT. ACTIVITIES OF DAILY LIVING (OT/MARIANNE) THERAPEUTIC EXERCISE (OT/MOLD WORKER) ENERGY CONSERVATION/ACTIVITY DEMAND (OT/MOLD WORKER) OT/MOLD WORKER TO MONITOR AND EDUCATE ON OXYGEN SATURATION DURING ADLS/IADLS, NOTIFY PHYSICIAN AND/OR THE RN CLINICAL VISUAL DISPLAY MANAGER FOR PHYSICIAN NOTIFICATION AND IF O2 SATS BELOW 90% AFTER 10 MIN OF REST. OT / MOLD WORKER TO IDENTIFY FALL RISK FACTORS; EDUCATE THE PATIENT/CAREGIVER ON WAYS TO REDUCE FALL RISK FACTORS AND ESTABLISH HOME EXERCISE PROGRAM TO MINIMIZE FALL RISK. MAY TEACH THE PATIENT FLOOR RECOVERY WHEN CLINICALLY APPROPRIATE. OT/MOLD WORKER TO EDUCATE ON HYPERTENSION SELF-MANAGEMENT OT/MARIANNE TO EDUCATE ON ATRIAL FIBRILLATION SELF-MANAGEMENT. [code = AGENCY MAY PERFORM A RESUMPTION OF CARE VISIT FOLLOWING ANY HOSPITAL ADMISSION. OT TO EVALUATE, OBSERVE / ASSESS, AND MONITOR, MOLD WORKER TO OBSERVE AND MONITOR, PROVIDE SKILLED THERAPEUTIC INTERVENTION, ACTIVITY, EDUCATION, AND TRAINING TO ADDRESS SAFETY AND INDEPENDENCE OF ADLS AND FUNCTIONAL TRANSFERS IN HOME ENVIRONMENT. ACTIVITIES OF DAILY LIVING (OT/MARIANNE) THERAPEUTIC EXERCISE (OT/MOLD WORKER) ENERGY CONSERVATION/ACTIVITY DEMAND (OT/MARIANNE) OT/MOLD WORKER TO MONITOR AND EDUCATE ON OXYGEN SATURATION DURING ADLS/IADLS, NOTIFY PHYSICIAN AND/OR THE RN CLINICAL VISUAL DISPLAY MANAGER FOR PHYSICIAN NOTIFICATION AND IF O2 SATS BELOW 90% AFTER 10 MIN OF REST. OT / MARIANNE TO IDENTIFY FALL RISK FACTORS; EDUCATE THE PATIENT/CAREGIVER ON WAYS TO REDUCE FALL RISK FACTORS AND ESTABLISH HOME EXERCISE PROGRAM TO MINIMIZE FALL RISK. MAY TEACH THE PATIENT FLOOR RECOVERY WHEN CLINICALLY APPROPRIATE. OT/MOLD WORKER TO EDUCATE ON HYPERTENSION SELF-MANAGEMENT OT/MARIANNE [...] Outpatient NEW ADMISSION [facility] [id number]
--- OUTSIDE RECORDS SUMMARY | 2025-04-06 18:00 | XMS_ITS | Clinical Summary ---
Author Organization Unknown Care Team Providers Care Electronic Device Repairer Name Role Phone DIGNA ARIEL, ESTRELLA Unavailable Unava dinora STOKES RN, FRANKIE Unavailable Unavailabl e KARI PT, DIDI Unavailable Unavailable NAT COPY MESSENGER, GAUDENCIO Unavailable Unavailabl e RADHA OT, ROLANDO Unavailable Unavailable JOANNE STEVEN, HATTIE Unavailable Unavailable Payers Payer Name Policy Type Policy Number Effective Date Expira tion Date MEDICARE.[facility] [id number] Problems Condition Name Condition Details Condition Category Status Onset Date Resolution Date Last Treatment Date Treating Clinician Comments 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 02-07 [...] OF PNEUMONIA (RECURRENT) Active 02-07 00:00: 00 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 Active [...] 80 mg tablet 02-07 00:00: 00 Yes [id number] CHOLESTEROL 1 tablet DAILY 1 tablet DAILY (route: oral) Med Classific ation: Cardiovas cular Therapy Agents digoxin 125 mcg (0.125 mg) tablet 02-07 00:00: 00 02-21 23:59 :00 No [id number] HEART RHYTHM 1 tablet DAILY 1 tablet DAILY (route: oral) Med Classific ation: Cardiovas cular Therapy Agents escitalopra m 10 mg tablet 02-07 00:00: 00 Yes [id number] MOOD 1 tablet DAILY 1 tablet DAILY (route: oral) Med Classific ation: Central Nervous System Agents ezetimibe 10 mg tablet 02-07 00:00: 00 Yes [id number] CHOLESTEROL 1 tablet DAILY 1 tablet DAILY (route: oral) Med Classific ation: Cardiovas cular Therapy Agents metoprolol succinate ER 25 mg tablet,exte nded release 24 hr 02-07 00:00: 00 02-21 23:59 :00 No [id number] BLOOD PRESSURE 0.5 tablet DAILY 0.5 tablet DAILY (route: oral) Med Classific ation: Cardiovas cular Therapy Agents pantoprazol e 40 mg tablet,joão yed release 02-07 00:00: 00 02-21 23:59 :00 No [id number] STOMACH ACID 1 tablet DAILY 1 tablet DAILY (route: oral) Med Classific ation: Gastroint estinal Therapy Agents prednisone 5 mg tablet 02-07 00:00: 00 Yes [id number] ADRENAL INSUFFICIEN CY 1 tablet DAILY 1 tablet DAILY (route: oral) Med Classific ation: Endocrine spironolact one 25 mg tablet 02-07 00:00: 00 Yes [id number] FLUID RETENTION 0.5 tablet DAILY 0.5 tablet DAILY (route: oral) Med Classific ation: Cardiovas cular Therapy Agents tamsulosin 0.4 mg capsule 02-07 00:00: 00 02-21 23:59 :00 No [id number] URINARY HEALTH 1 capsule DAILY 1 capsule DAILY (route: oral) Med Classific ation: Genitouri nary Therapy acetaminoph en 325 mg tablet 2024-05 00:00: 00 Yes [id number] PAIN 2 tablet 2 TIMES DAILY 2 tablet 2 TIMES DAILY (route: oral) Med Classific ation: Analgesic , Anti-infl ammatory or Antipyret ic aspirin 81 mg tablet 2024-05 00:00: 00 Yes [id number] ANTICOAGULA NT 1 tablet DAILY 1 tablet DAILY (route: oral) Med Classific ation: Hematolog ical Agents ipratropium 0.5 mg-albutero l 3 mg (2.5 mg base)/3 mL nebulizatio n soln 2024-05 00:00: 00 Yes [id number] COPD 3 mL EVERY 6 HOURS 3 mL EVERY 6 HOURS (route: inhalation ) Med Classific ation: Respirato ry Therapy Agents Lanoxin 62.5 mcg (0.0625 mg) tablet 2024-05 00:00: 00 Yes [id number] CHF 1 tablet DAILY 1 tablet DAILY (route: oral) Med Classific ation: Cardiovas cular Therapy Agents Lasix 20 mg tablet 2024-05 00:00: 00 Yes [id number] CHF 1 tablet DAILY 1 tablet DAILY (route: oral) Med Classific ation: Cardiovas cular Therapy Agents Toprol XL 25 mg tablet,exte nded release 2024-05 00:00: 00 Yes [id number] BP 25 mg DAILY 25 mg DAILY [...] SYSTEM MANAGEMENT; RN TO ASSESS AND TEACH, FURNITURE ASSEMBLER AND INSTALLER/PIG CASTING MACHINE OPERATOR TO OBSERVE AND TEACH RELATED TO ALTERED RESPIRATORY STATUS TO MINIMIZE COMPLICATIONS AND REDUCE HOSPITALIZATION. [code = SN 1WK9 PT 1WK1 OT EFFECTIVE 02/10/2025K1 RESPIRATORY SYSTEM MANAGEMENT; RN TO ASSESS AND TEACH, FURNITURE ASSEMBLER AND INSTALLER/PIG CASTING MACHINE OPERATOR TO OBSERVE AND TEACH RELATED TO ALTERED RESPIRATORY STATUS TO MINIMIZE COMPLICATIONS AND REDUCE HOSPITALIZATION.] Future Scheduled Test TRACHEOSTO MY CARE MANAGEMENT; RN/FURNITURE ASSEMBLER AND INSTALLER/PIG CASTING MACHINE OPERATOR TO INSTRUCT PATIENT/CAREGIVER ON CARE AND MANAGEMENT OF TRACHEOSTOMY. RN/ FURNITURE ASSEMBLER AND INSTALLER/PIG CASTING MACHINE OPERATOR TO PROVIDE SKILLED TEACHING ON TRACH COLLAR SUCTIONING PRN WITH 14 FR SUCTION CATHETER PER PATIENT TRACH CARE WITH INNER CANNULA: REMOVE INNER CANNULA, CLEANSE WITH NORMAL SALINE AND OR STERILE WATER AND REINSERT NON-DISPOSABLE CANNULA SIZE OF INNER CANNULA 5 BROOKS [code = TRACHEOSTOMY CARE MANAGEMENT; RN/FURNITURE ASSEMBLER AND INSTALLER/PIG CASTING MACHINE OPERATOR TO INSTRUCT PATIENT/CAREGIVER ON CARE AND MANAGEMENT OF TRACHEOSTOMY. RN/ FURNITURE ASSEMBLER AND INSTALLER/PIG CASTING MACHINE OPERATOR TO PROVIDE SKILLED TEACHING ON TRACH COLLAR SUCTIONING PRN WITH 14 FR SUCTION CATHETER PER PATIENT TRACH CARE WITH INNER CANNULA: REMOVE INNER CANNULA, CLEANSE WITH NORMAL SALINE AND OR STERILE WATER AND REINSERT NON-DISPOSABLE CANNULA SIZE OF INNER CANNULA 5 BROOKS] Future Scheduled Test FALL REDUC TION MANAGEMENT; RN TO ASSESS AND OBSERVE, FURNITURE ASSEMBLER AND INSTALLER/PIG CASTING MACHINE OPERATOR TO OBSERVE FALL RISK FACTORS AND EDUCATE PATIENT/CAREGIVER ON STRATEGIES TO MINIMIZE THE RISK OF FALLING. [code = FALL REDUCTION MANAGEMENT; RN TO ASSESS AND OBSERVE, FURNITURE ASSEMBLER AND INSTALLER/PIG CASTING MACHINE OPERATOR TO OBSERVE FALL RISK FACTORS AND EDUCATE PATIENT/CAREGIVER ON STRATEGIES TO MINIMIZE THE RISK OF FALLING.] Future Scheduled Test ANEMIA MAN AGEMENT; RN TO ASSESS AND TEACH, PIG CASTING MACHINE OPERATOR/FURNITURE ASSEMBLER AND INSTALLER TO OBSERVE AND TEACH AND PROVIDE EDUCATION ON ANEMIA. [code = ANEMIA MANAGEMENT; RN TO ASSESS AND TEACH, PIG CASTING MACHINE OPERATOR/FURNITURE ASSEMBLER AND INSTALLER TO OBSERVE AND TEACH AND PROVIDE EDUCATION ON ANEMIA.] Future Scheduled Test RN TO OBSE RVE, ASSESS, EVALUATE, AND DEVELOP AN INDIVIDUALIZED PLAN OF CARE. AGENCY MAY ACCEPT ORDERS FROM CONSULTING PHYSICIANS RN TO OBSERVE AND ASSESS, FURNITURE ASSEMBLER AND INSTALLER/PIG CASTING MACHINE OPERATOR TO OBSERVE FOR RISK FOR FALLS AND INSTRUCT IN FALL PREVENTION, HOME SAFETY, MEDICATION MANAGEMENT, INFECTION PREVENTION, AND NUTRITION MANAGEMENT. RN/FURNITURE ASSEMBLER AND INSTALLER/PIG CASTING MACHINE OPERATOR NURSE MAY PERFORM O2 SATURATION LEVEL ON ADMISSION AND PRN FOR RN TO ASSESS/FURNITURE ASSEMBLER AND INSTALLER TO OBSERVE PATIENT, WITH NOTIFICATION TO THE PHYSICIAN IF SATURATION IS 90% IN THE ABSENCE OF MORE SPECIFIC PARAMETERS FROM THE PHYSICIAN. AGENCY MAY PERFORM A RESUMPTION OF CARE VISIT FOLLOWING ANY HOSPITAL ADMISSION. RN/FURNITURE ASSEMBLER AND INSTALLER/PIG CASTING MACHINE OPERATOR TO MONITOR CO-MORBID CONDITIONS LISTED ON THE PLAN OF CARE AND ANY NEW CONDITIONS THAT PRESENT THEMSELVES DURING THIS EPISODE TO IDENTIFY CHANGES AND INTERVENE TO MINIMIZE COMPLICATIONS. [code = RN TO OBSERVE, ASSESS, EVALUATE, AND DEVELOP AN INDIVIDUALIZED PLAN OF CARE. AGENCY MAY ACCEPT ORDERS FROM CONSULTING PHYSICIANS RN TO OBSERVE AND ASSESS, FURNITURE ASSEMBLER AND INSTALLER/PIG CASTING MACHINE OPERATOR TO OBSERVE FOR RISK FOR FALLS AND INSTRUCT IN FALL PREVENTION, HOME SAFETY, MEDICATION MANAGEMENT, INFECTION PREVENTION, AND NUTRITION MANAGEMENT. RN/FURNITURE ASSEMBLER AND INSTALLER/PIG CASTING MACHINE OPERATOR NURSE MAY PERFORM O2 SATURATION LEVEL ON ADMISSION AND PRN FOR RN TO ASSESS/FURNITURE ASSEMBLER AND INSTALLER TO OBSERVE PATIENT, WITH NOTIFICATION TO THE PHYSICIAN IF SATURATION IS 90% IN THE ABSENCE OF MORE SPECIFIC PARAMETERS FROM THE PHYSICIAN. AGENCY MAY PERFORM A RESUMPTION OF CARE VISIT FOLLOWING ANY HOSPITAL ADMISSION. RN/FURNITURE ASSEMBLER AND INSTALLER/PIG CASTING MACHINE OPERATOR TO MONITOR CO-MORBID CONDITIONS LISTED ON THE PLAN OF CARE AND ANY NEW CONDITIONS THAT PRESENT THEMSELVES DURING THIS EPISODE TO IDENTIFY CHANGES AND INTERVENE TO MINIMIZE COMPLICATIONS.] Future Scheduled Test PAIN MANAG EMENT; RN TO ASSESS AND TEACH, PIG CASTING MACHINE OPERATOR/FURNITURE ASSEMBLER AND INSTALLER TO OBSERVE AND TEACH AND PROVIDE EDUCATION ON PAIN MANAGEMENT TECHNIQUES. [code = PAIN MANAGEMENT; RN TO ASSESS AND TEACH, PIG CASTING MACHINE OPERATOR/FURNITURE ASSEMBLER AND INSTALLER TO OBSERVE AND TEACH AND PROVIDE EDUCATION ON PAIN MANAGEMENT TECHNIQUES.] Future Scheduled Test RISK FOR H OSPITALIZATION; RN TO ASSESS/TEACH, PIG CASTING MACHINE OPERATOR/FURNITURE ASSEMBLER AND INSTALLER TO OBSERVE/TEACH PATIENT/CAREGIVER ON RISK FOR HOSPITALIZATION/EMERGENCY ROOM VISITS, TEACH SIGNS AND SYMPTOMS THAT PUT PATIENT AT RISK, WHEN TO NOTIFY NURSE/PHYSICIAN OF COMPLICATIONS/DECLINE, AND WHEN TO CALL 911. [code = RISK FOR HOSPITALIZATION; RN TO ASSESS/TEACH, PIG CASTING MACHINE OPERATOR/FURNITURE ASSEMBLER AND INSTALLER TO OBSERVE/TEACH PATIENT/CAREGIVER ON RISK FOR HOSPITALIZATION/EMERGENCY ROOM VISITS, TEACH SIGNS AND SYMPTOMS THAT PUT PATIENT AT RISK, WHEN TO NOTIFY NURSE/PHYSICIAN OF COMPLICATIONS/DECLINE, AND WHEN TO CALL 911.] Future Scheduled Test CARDIOVASC ULAR SYSTEM; RN TO ASSESS/TEACH, FURNITURE ASSEMBLER AND INSTALLER/PIG CASTING MACHINE OPERATOR TO OBSERVE/TEACH RELATED TO ALTERED CARDIOVASCULAR STATUS TO MINIMIZE COMPLICATIONS AND REDUCE HOSPITALIZATION. [code = CARDIOVASCULAR SYSTEM; RN TO ASSESS/TEACH, FURNITURE ASSEMBLER AND INSTALLER/PIG CASTING MACHINE OPERATOR TO OBSERVE/TEACH RELATED TO ALTERED CARDIOVASCULAR STATUS TO MINIMIZE COMPLICATIONS AND REDUCE HOSPITALIZATION.] Future Scheduled Test HYPERTENSI ON MANAGEMENT; RN TO ASSESS AND TEACH, FURNITURE ASSEMBLER AND INSTALLER/PIG CASTING MACHINE OPERATOR TO OBSERVE AND TEACH WARNING SIGNS AND SYMPTOMS TO AVOID HOSPITALIZATION. [code = HYPERTENSION MANAGEMENT; RN TO ASSESS AND TEACH, FURNITURE ASSEMBLER AND INSTALLER/PIG CASTING MACHINE OPERATOR TO OBSERVE AND TEACH WARNING SIGNS AND SYMPTOMS TO AVOID HOSPITALIZATION.] Future Scheduled Test HEART FAIL URE MONITORING RN/PIG CASTING MACHINE OPERATOR/FURNITURE ASSEMBLER AND INSTALLER TO MONITOR PATIENT FOR SIGNS AND SYMPTOMS OF HEART FAILURE EXACERBATION, MONITOR FOR ADHERENCE WITH MEDICATION AND HEART FAILURE MANAGEMENT REGIMEN. [code = HEART FAILURE MONITORING RN/PIG CASTING MACHINE OPERATOR/FURNITURE ASSEMBLER AND INSTALLER TO MONITOR PATIENT FOR SIGNS AND SYMPTOMS OF HEART FAILURE EXACERBATION, MONITOR FOR ADHERENCE WITH MEDICATION AND HEART FAILURE MANAGEMENT REGIMEN.] Future Scheduled Test DIABETES M ONITORING RN/PIG CASTING MACHINE OPERATOR/FURNITURE ASSEMBLER AND INSTALLER TO MONITOR BLOOD SUGAR LOG FOR BLOOD SUGAR READINGS THAT ARE BEING CHECKED BY PATIENT, CAREGIVER NEEDED FOR SIGNS AND SYMPTOMS OF HYPER/HYPOGLYCEMIA. PATIENT THERAPEUTIC BLOOD SUGAR PARAMETERS ARE 70 - 300. REPORT BLOOD SUGARS OUT OF RANGE TO PHYSICIAN. NURSE MAY PERFORM FINGER STICK BLOOD GLUCOSE NEEDED FOR SIGNS AND SYMPTOMS OF HYPO AND HYPERGLYCEMIA. RN/PIG CASTING MACHINE OPERATOR/FURNITURE ASSEMBLER AND INSTALLER TO MONITOR ADHERENCE OF PATIENT/CAREGIVER PERFORMING DIABETIC FOOT CARE AND MAY PERFORM DIABETIC FOOT CARE PRN. RN/PIG CASTING MACHINE OPERATOR/FURNITURE ASSEMBLER AND INSTALLER TO MONITOR FOR ADHERENCE TO DIABETIC SELF-CARE AND MANAGEMENT INCLUDING MEDICATIONS. [code = DIABETES MONITORING RN/PIG CASTING MACHINE OPERATOR/FURNITURE ASSEMBLER AND INSTALLER TO MONITOR BLOOD SUGAR LOG FOR BLOOD SUGAR READINGS THAT ARE BEING CHECKED BY PATIENT, CAREGIVER NEEDED FOR SIGNS AND SYMPTOMS OF HYPER/HYPOGLYCEMIA. PATIENT THERAPEUTIC BLOOD SUGAR PARAMETERS ARE 70 - 300. REPORT BLOOD SUGARS OUT OF RANGE TO PHYSICIAN. NURSE MAY PERFORM FINGER STICK BLOOD GLUCOSE NEEDED FOR SIGNS AND SYMPTOMS OF HYPO AND HYPERGLYCEMIA. RN/PIG CASTING MACHINE OPERATOR/FURNITURE ASSEMBLER AND INSTALLER TO MONITOR ADHERENCE OF PATIENT/CAREGIVER PERFORMING DIABETIC FOOT CARE AND MAY PERFORM DIABETIC FOOT CARE PRN. RN/PIG CASTING MACHINE OPERATOR/FURNITURE ASSEMBLER AND INSTALLER TO MONITOR FOR ADHERENCE TO DIABETIC SELF-CARE AND MANAGEMENT INCLUDING MEDICATIONS.] Future Scheduled Test HYPOTENSIO N MANAGEMENT; RN TO ASSESS AND TEACH/ FURNITURE ASSEMBLER AND INSTALLER /PIG CASTING MACHINE OPERATOR TO OBSERVE AND TEACH WARNING SIGNS AND SYMPTOMS TO AVOID HOSPITALIZATION. [code = HYPOTENSION MANAGEMENT; RN TO ASSESS AND TEACH/ FURNITURE ASSEMBLER AND INSTALLER /PIG CASTING MACHINE OPERATOR TO OBSERVE AND TEACH WARNING SIGNS AND SYMPTOMS TO AVOID HOSPITALIZATION.] Future Scheduled Test ARRHYTHMIA MANAGEMENT; RN TO ASSESS AND TEACH, FURNITURE ASSEMBLER AND INSTALLER/PIG CASTING MACHINE OPERATOR TO OBSERVE AND TEACH WARNING SIGNS AND SYMPTOMS TO AVOID HOSPITALIZATION. [code = ARRHYTHMIA MANAGEMENT; RN TO ASSESS AND TEACH, FURNITURE ASSEMBLER AND INSTALLER/PIG CASTING MACHINE OPERATOR TO OBSERVE AND TEACH WARNING SIGNS AND SYMPTOMS TO AVOID HOSPITALIZATION.] Future Scheduled Test MEDICATION MANAGEMENT; RN/FURNITURE ASSEMBLER AND INSTALLER/PIG CASTING MACHINE OPERATOR TO REVIEW MEDICATIONS FOR INTERACTIONS, EFFECTIVENESS OF DRUG THERAPY, AND SIGNS/SYMPTOMS OF ADVERSE REACTIONS. MAY INSTRUCT AND REINFORCE MEDICATION TEACHING RELATED TO THE USE OF MEDICATIONS, DOSAGE, FREQUENCY, PURPOSE, SIDE EFFECTS, AND TO REPORT COMPLICATIONS. [code = MEDICATION MANAGEMENT; RN/FURNITURE ASSEMBLER AND INSTALLER/PIG CASTING MACHINE OPERATOR TO REVIEW MEDICATIONS FOR INTERACTIONS, [...] EVAL UATE, OBSERVE / ASSESS, AND MONITOR, COPY MESSENGER TO OBSERVE AND MONITOR, PROVIDE SKILLED THERAPEUTIC INTERVENTION, ACTIVITY, EDUCATION, AND TRAINING TO ADDRESS GEN. WEAKNESS, POOR OVERALL ACTIVITY TOLERANCE, AND FUNCTIONAL LIMITATIONS IMPACTING SAFETY AND INDEPENDENCE. BED MOBILITY (PT/COPY MESSENGER) PT/COPY MESSENGER TO PROVIDE GAIT TRAINING FOR IMPROVED MOBILITY AND /OR TO NORMALIZE GAIT PATTERN THERAPEUTIC EXERCISES AND ESTABLISHING A HOME EXERCISE PROGRAM (PT/COPY MESSENGER) PT/COPY MESSENGER TO PROVIDE STAIR TRAINING PT / COPY MESSENGER TO MONITOR AND EDUCATE ON OXYGEN SATURATION DURING ADLS/IADLS, NOTIFY PHYSICIAN AND/OR THE RN CLINICAL EDGE PLUGGER FOR PHYSICIAN NOTIFICATION AND IF O2 SATS BELOW PHYSICIAN ORDERED PARAMETERS AFTER 10 MIN OF REST PT / COPY MESSENGER TO OBSERVE FOR EARLY SIGNS AND SYMPTOMS OF DEPRESSION OR DEPRESSION GETTING WORSE AND TO EDUCATE ON HOW TO FIND HELP. PT / COPY MESSENGER MAY EDUCATE ON PAIN MANAGEMENT CLINICALLY INDICATED, INCLUDING NON-PHARMACOLOGICAL PAIN REDUCTION TECHNIQUES PT / COPY MESSENGER TO MONITOR FOR HYPO/HYPERGLYCEMIA AND CONDUCT ROUTINE FOOT INSPECTIONS. RECORD PATIENT REPORTED BLOOD SUGAR LEVELS AND NOTIFY PHYSICIAN AND/OR THE RN CLINICAL EDGE PLUGGER FOR PHYSICIAN NOTIFICATION IF BLOOD SUGAR LEVELS ARE OUTSIDE ORDERED PARAMETERS. TEACH PATIENT/CAREGIVER ON DAILY FOOT INSPECTIONS PT / COPY MESSENGER TO INSTRUCT PATIENT/CAREGIVER ON RISK FOR HOSPITALIZATION/EMERGENCY ROOM VISITS, TEACH SIGNS AND SYMPTOMS THAT PUT PATIENT AT RISK, WHEN TO NOTIFY NURSE/PHYSICIAN OF COMPLICATIONS/DECLINE, AND WHEN TO CALL 911. PT/COPY MESSENGER TO EDUCATE ON ARTHRITIS SELF-MANAGEMENT PT / COPY MESSENGER TO EDUCATE ON HEART FAILURE SELF-MANAGEMENT PT / COPY MESSENGER TO EDUCATE ON HYPERTENSION SELF-MANAGEMENT PT TO ASSESS / COPY MESSENGER TO MONITOR CARDIO/RESPIRATORY SYSTEM; AND NOTIFY THE PHYSICIAN AND/OR THE RN CLINICAL EDGE PLUGGER FOR PHYSICIAN NOTIFICATION FOR EARLY SIGNS AND SYMPTOMS OF EXACERBATION OR DETERIORATION. PT / COPY MESSENGER TO EDUCATE ON ATRIAL FIBRILLATION SELF-MANAGEMENT. PT / COPY MESSENGER TO EDUCATE ON PNEUMONIA / ASPIRATION PNEUMONIA SELF-MANAGEMENT. PT/COPY MESSENGER TO IDENTIFY FALL RISK FACTORS; EDUCATE THE PATIENT/CAREGIVER ON WAYS TO REDUCE FALL RISK FACTORS AND ESTABLISH HOME EXERCISE PROGRAM TO MINIMIZE FALL RISK. MAY TEACH THE PATIENT FLOOR RECOVERY WHEN CLINICALLY APPROPRIATE [code = PT TO EVALUATE, OBSERVE / ASSESS, AND MONITOR, COPY MESSENGER TO OBSERVE AND MONITOR, PROVIDE SKILLED THERAPEUTIC INTERVENTION, ACTIVITY, EDUCATION, AND TRAINING TO ADDRESS GEN. WEAKNESS, POOR OVERALL ACTIVITY TOLERANCE, AND FUNCTIONAL LIMITATIONS IMPACTING SAFETY AND INDEPENDENCE. BED MOBILITY (PT/COPY MESSENGER) PT/COPY MESSENGER TO PROVIDE GAIT TRAINING FOR IMPROVED MOBILITY AND /OR TO NORMALIZE GAIT PATTERN THERAPEUTIC EXERCISES AND ESTABLISHING A HOME EXERCISE PROGRAM (PT/COPY MESSENGER) PT/COPY MESSENGER TO PROVIDE STAIR TRAINING PT / COPY MESSENGER TO MONITOR AND EDUCATE ON OXYGEN SATURATION DURING ADLS/IADLS, NOTIFY PHYSICIAN AND/OR THE RN CLINICAL EDGE PLUGGER FOR PHYSICIAN NOTIFICATION AND IF O2 SATS BELOW PHYSICIAN ORDERED PARAMETERS AFTER 10 MIN OF REST PT / COPY MESSENGER TO OBSERVE FOR EARLY SIGNS AND SYMPTOMS OF DEPRESSION OR DEPRESSION GETTING WORSE AND TO EDUCATE ON HOW TO FIND HELP. PT / COPY MESSENGER MAY EDUCATE ON PAIN MANAGEMENT CLINICALLY INDICATED, INCLUDING NON-PHARMACOLOGICAL PAIN REDUCTION TECHNIQUES PT / COPY MESSENGER TO MONITOR FOR HYPO/HYPERGLYCEMIA AND CONDUCT ROUTINE FOOT INSPECTIONS. RECORD PATIENT REPORTED BLOOD SUGAR LEVELS AND NOTIFY PHYSICIAN AND/OR THE RN CLINICAL EDGE PLUGGER FOR PHYSICIAN NOTIFICATION IF BLOOD SUGAR LEVELS ARE OUTSIDE ORDERED PARAMETERS. TEACH PATIENT/CAREGIVER ON DAILY FOOT INSPECTIONS PT / COPY MESSENGER TO INSTRUCT PATIENT/CAREGIVER ON RISK FOR HOSPITALIZATION/EMERGENCY ROOM VISITS, TEACH SIGNS AND SYMPTOMS THAT PUT PATIENT AT RISK, WHEN TO NOTIFY NURSE/PHYSICIAN OF COMPLICATIONS/DECLINE, AND WHEN TO CALL 911. PT/COPY MESSENGER TO EDUCATE ON ARTHRITIS SELF-MANAGEMENT PT / COPY MESSENGER TO EDUCATE ON HEART FAILURE SELF-MANAGEMENT PT / COPY MESSENGER TO EDUCATE ON HYPERTENSION SELF-MANAGEMENT PT TO ASSESS / COPY MESSENGER TO MONITOR CARDIO/RESPIRATORY SYSTEM; AND NOTIFY THE PHYSICIAN AND/OR THE RN CLINICAL EDGE PLUGGER FOR PHYSICIAN NOTIFICATION FOR EARLY SIGNS AND SYMPTOMS OF EXACERBATION OR DETERIORATION. PT / COPY MESSENGER TO EDUCATE ON ATRIAL FIBRILLATION SELF-MANAGEMENT. PT / COPY MESSENGER TO EDUCATE ON PNEUMONIA / ASPIRATION PNEUMONIA SELF-MANAGEMENT. PT/COPY MESSENGER TO IDENTIFY FALL RISK FACTORS; EDUCATE THE PATIENT/CAREGIVER ON WAYS TO REDUCE FALL RISK FACTORS AND ESTABLISH HOME EXERCISE PROGRAM TO MINIMIZE FALL RISK. MAY TEACH THE PATIENT FLOOR RECOVERY WHEN CLINICALLY APPROPRIATE] Future Scheduled Test AGENCY MAY PERFORM A RESUMPTION OF CARE VISIT FOLLOWING ANY HOSPITAL ADMISSION. OT TO EVALUATE, OBSERVE / ASSESS, AND MONITOR, FREIGHT LOADING SUPERVISOR TO OBSERVE AND MONITOR, PROVIDE SKILLED THERAPEUTIC INTERVENTION, ACTIVITY, EDUCATION, AND TRAINING TO ADDRESS SAFETY AND INDEPENDENCE OF ADLS AND FUNCTIONAL TRANSFERS IN HOME ENVIRONMENT. ACTIVITIES OF DAILY LIVING (OT/MARIANNE) THERAPEUTIC EXERCISE (OT/FREIGHT LOADING SUPERVISOR) ENERGY CONSERVATION/ACTIVITY DEMAND (OT/FREIGHT LOADING SUPERVISOR) OT/FREIGHT LOADING SUPERVISOR TO MONITOR AND EDUCATE ON OXYGEN SATURATION DURING ADLS/IADLS, NOTIFY PHYSICIAN AND/OR THE RN CLINICAL EDGE PLUGGER FOR PHYSICIAN NOTIFICATION AND IF O2 SATS BELOW 90% AFTER 10 MIN OF REST. OT / FREIGHT LOADING SUPERVISOR TO IDENTIFY FALL RISK FACTORS; EDUCATE THE PATIENT/CAREGIVER ON WAYS TO REDUCE FALL RISK FACTORS AND ESTABLISH HOME EXERCISE PROGRAM TO MINIMIZE FALL RISK. MAY TEACH THE PATIENT FLOOR RECOVERY WHEN CLINICALLY APPROPRIATE. OT/FREIGHT LOADING SUPERVISOR TO EDUCATE ON HYPERTENSION SELF-MANAGEMENT OT/MARIANNE TO EDUCATE ON ATRIAL FIBRILLATION SELF-MANAGEMENT. [code = AGENCY MAY PERFORM A RESUMPTION OF CARE VISIT FOLLOWING ANY HOSPITAL ADMISSION. OT TO EVALUATE, OBSERVE / ASSESS, AND MONITOR, FREIGHT LOADING SUPERVISOR TO OBSERVE AND MONITOR, PROVIDE SKILLED THERAPEUTIC INTERVENTION, ACTIVITY, EDUCATION, AND TRAINING TO ADDRESS SAFETY AND INDEPENDENCE OF ADLS AND FUNCTIONAL TRANSFERS IN HOME ENVIRONMENT. ACTIVITIES OF DAILY LIVING (OT/MARIANNE) THERAPEUTIC EXERCISE (OT/FREIGHT LOADING SUPERVISOR) ENERGY CONSERVATION/ACTIVITY DEMAND (OT/MARIANNE) OT/FREIGHT LOADING SUPERVISOR TO MONITOR AND EDUCATE ON OXYGEN SATURATION DURING ADLS/IADLS, NOTIFY PHYSICIAN AND/OR THE RN CLINICAL EDGE PLUGGER FOR PHYSICIAN NOTIFICATION AND IF O2 SATS BELOW 90% AFTER 10 MIN OF REST. OT / MARIANNE TO IDENTIFY FALL RISK FACTORS; EDUCATE THE PATIENT/CAREGIVER ON WAYS TO REDUCE FALL RISK FACTORS AND ESTABLISH HOME EXERCISE PROGRAM TO MINIMIZE FALL RISK. MAY TEACH THE PATIENT FLOOR RECOVERY WHEN CLINICALLY APPROPRIATE. OT/FREIGHT LOADING SUPERVISOR TO EDUCATE ON HYPERTENSION SELF-MANAGEMENT [...] End Date/Time Encounter Type Admission Type Attending [facility] Care Department Encounter ID Discharge Date Discharge Status Discharge Condition Discharge Reason Percent Goals Met 2025-02-07 00:00:00 2025-04-07 00:00:00 Outpatient NEW ADMISSION [facility] [id number]
--- OUTSIDE RECORDS SUMMARY | 2025-04-06 18:00 | XMS_ITS | Clinical Summary ---
Author Organization Unknown Care Team Providers Care Director Institution Name Role Phone DIGNA ARIEL, ESTRELLA Unavailable Unava dinora STOKES RN, FRANKIE Unavailable Unavailabl e KARI PT, DIDI Unavailable Unavailable NAT STAKE SETTER, GAUDENCIO Unavailable Unavailabl e RAHDA OT, ROLANDO Unavailable Unavailable JOANNE STEVEN, HATTIE Unavailable Unavailable Payers Payer Name Policy Type Policy Number Effective Date Expira tion Date MEDICARE.[facility] [id number] Problems Condition Name Condition Details Condition Category Status Onset Date Resolution Date Last Treatment Date Treating Clinician Comments 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 02-07 [...] PNEUMONIA (RECURRENT) Active 02-07 00:00: 00 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) USE OF SYSTEMIC STEROIDS Active [...] 80 mg tablet 02-07 00:00: 00 Yes [id number] CHOLESTEROL 1 tablet DAILY 1 tablet DAILY (route: oral) Med Classific ation: Cardiovas cular Therapy Agents digoxin 125 mcg (0.125 mg) tablet 02-07 00:00: 00 02-21 23:59 :00 No [id number] HEART RHYTHM 1 tablet DAILY 1 tablet DAILY (route: oral) Med Classific ation: Cardiovas cular Therapy Agents escitalopra m 10 mg tablet 02-07 00:00: 00 Yes [id number] MOOD 1 tablet DAILY 1 tablet DAILY (route: oral) Med Classific ation: Central Nervous System Agents ezetimibe 10 mg tablet 02-07 00:00: 00 Yes [id number] CHOLESTEROL 1 tablet DAILY 1 tablet DAILY (route: oral) Med Classific ation: Cardiovas cular Therapy Agents metoprolol succinate ER 25 mg tablet,exte nded release 24 hr 02-07 00:00: 00 02-21 23:59 :00 No [id number] BLOOD PRESSURE 0.5 tablet DAILY 0.5 tablet DAILY (route: oral) Med Classific ation: Cardiovas cular Therapy Agents pantoprazol e 40 mg tablet,joão yed release 02-07 00:00: 00 02-21 23:59 :00 No [id number] STOMACH ACID 1 tablet DAILY 1 tablet DAILY (route: oral) Med Classific ation: Gastroint estinal Therapy Agents prednisone 5 mg tablet 02-07 00:00: 00 Yes [id number] ADRENAL INSUFFICIEN CY 1 tablet DAILY 1 tablet DAILY (route: oral) Med Classific ation: Endocrine spironolact one 25 mg tablet 02-07 00:00: 00 Yes [id number] FLUID RETENTION 0.5 tablet DAILY 0.5 tablet DAILY (route: oral) Med Classific ation: Cardiovas cular Therapy Agents tamsulosin 0.4 mg capsule 02-07 00:00: 00 02-21 23:59 :00 No [id number] URINARY HEALTH 1 capsule DAILY 1 capsule DAILY (route: oral) Med Classific ation: Genitouri nary Therapy acetaminoph en 325 mg tablet 2024-05 00:00: 00 Yes [id number] PAIN 2 tablet 2 TIMES DAILY 2 tablet 2 TIMES DAILY (route: oral) Med Classific ation: Analgesic , Anti-infl ammatory or Antipyret ic aspirin 81 mg tablet 2024-05 00:00: 00 Yes [id number] ANTICOAGULA NT 1 tablet DAILY 1 tablet DAILY (route: oral) Med Classific ation: Hematolog ical Agents ipratropium 0.5 mg-albutero l 3 mg (2.5 mg base)/3 mL nebulizatio n soln 2024-05 00:00: 00 Yes [id number] COPD 3 mL EVERY 6 HOURS 3 mL EVERY 6 HOURS (route: inhalation ) Med Classific ation: Respirato ry Therapy Agents Lanoxin 62.5 mcg (0.0625 mg) tablet 2024-05 00:00: 00 Yes [id number] CHF 1 tablet DAILY 1 tablet DAILY (route: oral) Med Classific ation: Cardiovas cular Therapy Agents Lasix 20 mg tablet 2024-05 00:00: 00 Yes [id number] CHF 1 tablet DAILY 1 tablet DAILY (route: oral) Med Classific ation: Cardiovas cular Therapy Agents Toprol XL 25 mg tablet,exte nded release 2024-05 00:00: 00 Yes [id number] BP 25 mg DAILY 25 mg DAILY [...] SYSTEM MANAGEMENT; RN TO ASSESS AND TEACH, CONTROL SYSTEMS ENGINEER/SENIOR DATA MINING ANALYST TO OBSERVE AND TEACH RELATED TO ALTERED RESPIRATORY STATUS TO MINIMIZE COMPLICATIONS AND REDUCE HOSPITALIZATION. [code = SN 1WK9 PT 1WK1 OT EFFECTIVE 02/10/2025K1 RESPIRATORY SYSTEM MANAGEMENT; RN TO ASSESS AND TEACH, CONTROL SYSTEMS ENGINEER/SENIOR DATA MINING ANALYST TO OBSERVE AND TEACH RELATED TO ALTERED RESPIRATORY STATUS TO MINIMIZE COMPLICATIONS AND REDUCE HOSPITALIZATION.] Future Scheduled Test TRACHEOSTO MY CARE MANAGEMENT; RN/CONTROL SYSTEMS ENGINEER/SENIOR DATA MINING ANALYST TO INSTRUCT PATIENT/CAREGIVER ON CARE AND MANAGEMENT OF TRACHEOSTOMY. RN/ CONTROL SYSTEMS ENGINEER/SENIOR DATA MINING ANALYST TO PROVIDE SKILLED TEACHING ON TRACH COLLAR SUCTIONING PRN WITH 14 FR SUCTION CATHETER PER PATIENT TRACH CARE WITH INNER CANNULA: REMOVE INNER CANNULA, CLEANSE WITH NORMAL SALINE AND OR STERILE WATER AND REINSERT NON-DISPOSABLE CANNULA SIZE OF INNER CANNULA 5 BROOKS [code = TRACHEOSTOMY CARE MANAGEMENT; RN/CONTROL SYSTEMS ENGINEER/SENIOR DATA MINING ANALYST TO INSTRUCT PATIENT/CAREGIVER ON CARE AND MANAGEMENT OF TRACHEOSTOMY. RN/ CONTROL SYSTEMS ENGINEER/SENIOR DATA MINING ANALYST TO PROVIDE SKILLED TEACHING ON TRACH COLLAR SUCTIONING PRN WITH 14 FR SUCTION CATHETER PER PATIENT TRACH CARE WITH INNER CANNULA: REMOVE INNER CANNULA, CLEANSE WITH NORMAL SALINE AND OR STERILE WATER AND REINSERT NON-DISPOSABLE CANNULA SIZE OF INNER CANNULA 5 BROOKS] Future Scheduled Test FALL REDUC TION MANAGEMENT; RN TO ASSESS AND OBSERVE, CONTROL SYSTEMS ENGINEER/SENIOR DATA MINING ANALYST TO OBSERVE FALL RISK FACTORS AND EDUCATE PATIENT/CAREGIVER ON STRATEGIES TO MINIMIZE THE RISK OF FALLING. [code = FALL REDUCTION MANAGEMENT; RN TO ASSESS AND OBSERVE, CONTROL SYSTEMS ENGINEER/SENIOR DATA MINING ANALYST TO OBSERVE FALL RISK FACTORS AND EDUCATE PATIENT/CAREGIVER ON STRATEGIES TO MINIMIZE THE RISK OF FALLING.] Future Scheduled Test ANEMIA MAN AGEMENT; RN TO ASSESS AND TEACH, SENIOR DATA MINING ANALYST/CONTROL SYSTEMS ENGINEER TO OBSERVE AND TEACH AND PROVIDE EDUCATION ON ANEMIA. [code = ANEMIA MANAGEMENT; RN TO ASSESS AND TEACH, SENIOR DATA MINING ANALYST/CONTROL SYSTEMS ENGINEER TO OBSERVE AND TEACH AND PROVIDE EDUCATION ON ANEMIA.] Future Scheduled Test RN TO OBSE RVE, ASSESS, EVALUATE, AND DEVELOP AN INDIVIDUALIZED PLAN OF CARE. AGENCY MAY ACCEPT ORDERS FROM CONSULTING PHYSICIANS RN TO OBSERVE AND ASSESS, CONTROL SYSTEMS ENGINEER/SENIOR DATA MINING ANALYST TO OBSERVE FOR RISK FOR FALLS AND INSTRUCT IN FALL PREVENTION, HOME SAFETY, MEDICATION MANAGEMENT, INFECTION PREVENTION, AND NUTRITION MANAGEMENT. RN/CONTROL SYSTEMS ENGINEER/SENIOR DATA MINING ANALYST NURSE MAY PERFORM O2 SATURATION LEVEL ON ADMISSION AND PRN FOR RN TO ASSESS/CONTROL SYSTEMS ENGINEER TO OBSERVE PATIENT, WITH NOTIFICATION TO THE PHYSICIAN IF SATURATION IS 90% IN THE ABSENCE OF MORE SPECIFIC PARAMETERS FROM THE PHYSICIAN. AGENCY MAY PERFORM A RESUMPTION OF CARE VISIT FOLLOWING ANY HOSPITAL ADMISSION. RN/CONTROL SYSTEMS ENGINEER/SENIOR DATA MINING ANALYST TO MONITOR CO-MORBID CONDITIONS LISTED ON THE PLAN OF CARE AND ANY NEW CONDITIONS THAT PRESENT THEMSELVES DURING THIS EPISODE TO IDENTIFY CHANGES AND INTERVENE TO MINIMIZE COMPLICATIONS. [code = RN TO OBSERVE, ASSESS, EVALUATE, AND DEVELOP AN INDIVIDUALIZED PLAN OF CARE. AGENCY MAY ACCEPT ORDERS FROM CONSULTING PHYSICIANS RN TO OBSERVE AND ASSESS, CONTROL SYSTEMS ENGINEER/SENIOR DATA MINING ANALYST TO OBSERVE FOR RISK FOR FALLS AND INSTRUCT IN FALL PREVENTION, HOME SAFETY, MEDICATION MANAGEMENT, INFECTION PREVENTION, AND NUTRITION MANAGEMENT. RN/CONTROL SYSTEMS ENGINEER/SENIOR DATA MINING ANALYST NURSE MAY PERFORM O2 SATURATION LEVEL ON ADMISSION AND PRN FOR RN TO ASSESS/CONTROL SYSTEMS ENGINEER TO OBSERVE PATIENT, WITH NOTIFICATION TO THE PHYSICIAN IF SATURATION IS 90% IN THE ABSENCE OF MORE SPECIFIC PARAMETERS FROM THE PHYSICIAN. AGENCY MAY PERFORM A RESUMPTION OF CARE VISIT FOLLOWING ANY HOSPITAL ADMISSION. RN/CONTROL SYSTEMS ENGINEER/SENIOR DATA MINING ANALYST TO MONITOR CO-MORBID CONDITIONS LISTED ON THE PLAN OF CARE AND ANY NEW CONDITIONS THAT PRESENT THEMSELVES DURING THIS EPISODE TO IDENTIFY CHANGES AND INTERVENE TO MINIMIZE COMPLICATIONS.] Future Scheduled Test PAIN MANAG EMENT; RN TO ASSESS AND TEACH, SENIOR DATA MINING ANALYST/CONTROL SYSTEMS ENGINEER TO OBSERVE AND TEACH AND PROVIDE EDUCATION ON PAIN MANAGEMENT TECHNIQUES. [code = PAIN MANAGEMENT; RN TO ASSESS AND TEACH, SENIOR DATA MINING ANALYST/CONTROL SYSTEMS ENGINEER TO OBSERVE AND TEACH AND PROVIDE EDUCATION ON PAIN MANAGEMENT TECHNIQUES.] Future Scheduled Test RISK FOR H OSPITALIZATION; RN TO ASSESS/TEACH, SENIOR DATA MINING ANALYST/CONTROL SYSTEMS ENGINEER TO OBSERVE/TEACH PATIENT/CAREGIVER ON RISK FOR HOSPITALIZATION/EMERGENCY ROOM VISITS, TEACH SIGNS AND SYMPTOMS THAT PUT PATIENT AT RISK, WHEN TO NOTIFY NURSE/PHYSICIAN OF COMPLICATIONS/DECLINE, AND WHEN TO CALL 911. [code = RISK FOR HOSPITALIZATION; RN TO ASSESS/TEACH, SENIOR DATA MINING ANALYST/CONTROL SYSTEMS ENGINEER TO OBSERVE/TEACH PATIENT/CAREGIVER ON RISK FOR HOSPITALIZATION/EMERGENCY ROOM VISITS, TEACH SIGNS AND SYMPTOMS THAT PUT PATIENT AT RISK, WHEN TO NOTIFY NURSE/PHYSICIAN OF COMPLICATIONS/DECLINE, AND WHEN TO CALL 911.] Future Scheduled Test CARDIOVASC ULAR SYSTEM; RN TO ASSESS/TEACH, CONTROL SYSTEMS ENGINEER/SENIOR DATA MINING ANALYST TO OBSERVE/TEACH RELATED TO ALTERED CARDIOVASCULAR STATUS TO MINIMIZE COMPLICATIONS AND REDUCE HOSPITALIZATION. [code = CARDIOVASCULAR SYSTEM; RN TO ASSESS/TEACH, CONTROL SYSTEMS ENGINEER/SENIOR DATA MINING ANALYST TO OBSERVE/TEACH RELATED TO ALTERED CARDIOVASCULAR STATUS TO MINIMIZE COMPLICATIONS AND REDUCE HOSPITALIZATION.] Future Scheduled Test HYPERTENSI ON MANAGEMENT; RN TO ASSESS AND TEACH, CONTROL SYSTEMS ENGINEER/SENIOR DATA MINING ANALYST TO OBSERVE AND TEACH WARNING SIGNS AND SYMPTOMS TO AVOID HOSPITALIZATION. [code = HYPERTENSION MANAGEMENT; RN TO ASSESS AND TEACH, CONTROL SYSTEMS ENGINEER/SENIOR DATA MINING ANALYST TO OBSERVE AND TEACH WARNING SIGNS AND SYMPTOMS TO AVOID HOSPITALIZATION.] Future Scheduled Test HEART FAIL URE MONITORING RN/SENIOR DATA MINING ANALYST/CONTROL SYSTEMS ENGINEER TO MONITOR PATIENT FOR SIGNS AND SYMPTOMS OF HEART FAILURE EXACERBATION, MONITOR FOR ADHERENCE WITH MEDICATION AND HEART FAILURE MANAGEMENT REGIMEN. [code = HEART FAILURE MONITORING RN/SENIOR DATA MINING ANALYST/CONTROL SYSTEMS ENGINEER TO MONITOR PATIENT FOR SIGNS AND SYMPTOMS OF HEART FAILURE EXACERBATION, MONITOR FOR ADHERENCE WITH MEDICATION AND HEART FAILURE MANAGEMENT REGIMEN.] Future Scheduled Test DIABETES M ONITORING RN/SENIOR DATA MINING ANALYST/CONTROL SYSTEMS ENGINEER TO MONITOR BLOOD SUGAR LOG FOR BLOOD SUGAR READINGS THAT ARE BEING CHECKED BY PATIENT, CAREGIVER NEEDED FOR SIGNS AND SYMPTOMS OF HYPER/HYPOGLYCEMIA. PATIENT THERAPEUTIC BLOOD SUGAR PARAMETERS ARE 70 - 300. REPORT BLOOD SUGARS OUT OF RANGE TO PHYSICIAN. NURSE MAY PERFORM FINGER STICK BLOOD GLUCOSE NEEDED FOR SIGNS AND SYMPTOMS OF HYPO AND HYPERGLYCEMIA. RN/SENIOR DATA MINING ANALYST/CONTROL SYSTEMS ENGINEER TO MONITOR ADHERENCE OF PATIENT/CAREGIVER PERFORMING DIABETIC FOOT CARE AND MAY PERFORM DIABETIC FOOT CARE PRN. RN/SENIOR DATA MINING ANALYST/CONTROL SYSTEMS ENGINEER TO MONITOR FOR ADHERENCE TO DIABETIC SELF-CARE AND MANAGEMENT INCLUDING MEDICATIONS. [code = DIABETES MONITORING RN/SENIOR DATA MINING ANALYST/CONTROL SYSTEMS ENGINEER TO MONITOR BLOOD SUGAR LOG FOR BLOOD SUGAR READINGS THAT ARE BEING CHECKED BY PATIENT, CAREGIVER NEEDED FOR SIGNS AND SYMPTOMS OF HYPER/HYPOGLYCEMIA. PATIENT THERAPEUTIC BLOOD SUGAR PARAMETERS ARE 70 - 300. REPORT BLOOD SUGARS OUT OF RANGE TO PHYSICIAN. NURSE MAY PERFORM FINGER STICK BLOOD GLUCOSE NEEDED FOR SIGNS AND SYMPTOMS OF HYPO AND HYPERGLYCEMIA. RN/SENIOR DATA MINING ANALYST/CONTROL SYSTEMS ENGINEER TO MONITOR ADHERENCE OF PATIENT/CAREGIVER PERFORMING DIABETIC FOOT CARE AND MAY PERFORM DIABETIC FOOT CARE PRN. RN/SENIOR DATA MINING ANALYST/CONTROL SYSTEMS ENGINEER TO MONITOR FOR ADHERENCE TO DIABETIC SELF-CARE AND MANAGEMENT INCLUDING MEDICATIONS.] Future Scheduled Test HYPOTENSIO N MANAGEMENT; RN TO ASSESS AND TEACH/ CONTROL SYSTEMS ENGINEER /SENIOR DATA MINING ANALYST TO OBSERVE AND TEACH WARNING SIGNS AND SYMPTOMS TO AVOID HOSPITALIZATION. [code = HYPOTENSION MANAGEMENT; RN TO ASSESS AND TEACH/ CONTROL SYSTEMS ENGINEER /SENIOR DATA MINING ANALYST TO OBSERVE AND TEACH WARNING SIGNS AND SYMPTOMS TO AVOID HOSPITALIZATION.] Future Scheduled Test ARRHYTHMIA MANAGEMENT; RN TO ASSESS AND TEACH, CONTROL SYSTEMS ENGINEER/SENIOR DATA MINING ANALYST TO OBSERVE AND TEACH WARNING SIGNS AND SYMPTOMS TO AVOID HOSPITALIZATION. [code = ARRHYTHMIA MANAGEMENT; RN TO ASSESS AND TEACH, CONTROL SYSTEMS ENGINEER/SENIOR DATA MINING ANALYST TO OBSERVE AND TEACH WARNING SIGNS AND SYMPTOMS TO AVOID HOSPITALIZATION.] Future Scheduled Test MEDICATION MANAGEMENT; RN/CONTROL SYSTEMS ENGINEER/SENIOR DATA MINING ANALYST TO REVIEW MEDICATIONS FOR INTERACTIONS, EFFECTIVENESS OF DRUG THERAPY, AND SIGNS/SYMPTOMS OF ADVERSE REACTIONS. MAY INSTRUCT AND REINFORCE MEDICATION TEACHING RELATED TO THE USE OF MEDICATIONS, DOSAGE, FREQUENCY, PURPOSE, SIDE EFFECTS, AND TO REPORT COMPLICATIONS. [code = MEDICATION MANAGEMENT; RN/CONTROL SYSTEMS ENGINEER/SENIOR DATA MINING ANALYST TO REVIEW MEDICATIONS FOR INTERACTIONS, EFFECTIVENESS [...] EVAL UATE, OBSERVE / ASSESS, AND MONITOR, STAKE SETTER TO OBSERVE AND MONITOR, PROVIDE SKILLED THERAPEUTIC INTERVENTION, ACTIVITY, EDUCATION, AND TRAINING TO ADDRESS GEN. WEAKNESS, POOR OVERALL ACTIVITY TOLERANCE, AND FUNCTIONAL LIMITATIONS IMPACTING SAFETY AND INDEPENDENCE. BED MOBILITY (PT/STAKE SETTER) PT/STAKE SETTER TO PROVIDE GAIT TRAINING FOR IMPROVED MOBILITY AND /OR TO NORMALIZE GAIT PATTERN THERAPEUTIC EXERCISES AND ESTABLISHING A HOME EXERCISE PROGRAM (PT/STAKE SETTER) PT/STAKE SETTER TO PROVIDE STAIR TRAINING PT / STAKE SETTER TO MONITOR AND EDUCATE ON OXYGEN SATURATION DURING ADLS/IADLS, NOTIFY PHYSICIAN AND/OR THE RN CLINICAL HAND DRILLER FOR PHYSICIAN NOTIFICATION AND IF O2 SATS BELOW PHYSICIAN ORDERED PARAMETERS AFTER 10 MIN OF REST PT / STAKE SETTER TO OBSERVE FOR EARLY SIGNS AND SYMPTOMS OF DEPRESSION OR DEPRESSION GETTING WORSE AND TO EDUCATE ON HOW TO FIND HELP. PT / STAKE SETTER MAY EDUCATE ON PAIN MANAGEMENT CLINICALLY INDICATED, INCLUDING NON-PHARMACOLOGICAL PAIN REDUCTION TECHNIQUES PT / STAKE SETTER TO MONITOR FOR HYPO/HYPERGLYCEMIA AND CONDUCT ROUTINE FOOT INSPECTIONS. RECORD PATIENT REPORTED BLOOD SUGAR LEVELS AND NOTIFY PHYSICIAN AND/OR THE RN CLINICAL HAND DRILLER FOR PHYSICIAN NOTIFICATION IF BLOOD SUGAR LEVELS ARE OUTSIDE ORDERED PARAMETERS. TEACH PATIENT/CAREGIVER ON DAILY FOOT INSPECTIONS PT / STAKE SETTER TO INSTRUCT PATIENT/CAREGIVER ON RISK FOR HOSPITALIZATION/EMERGENCY ROOM VISITS, TEACH SIGNS AND SYMPTOMS THAT PUT PATIENT AT RISK, WHEN TO NOTIFY NURSE/PHYSICIAN OF COMPLICATIONS/DECLINE, AND WHEN TO CALL 911. PT/STAKE SETTER TO EDUCATE ON ARTHRITIS SELF-MANAGEMENT PT / STAKE SETTER TO EDUCATE ON HEART FAILURE SELF-MANAGEMENT PT / STAKE SETTER TO EDUCATE ON HYPERTENSION SELF-MANAGEMENT PT TO ASSESS / STAKE SETTER TO MONITOR CARDIO/RESPIRATORY SYSTEM; AND NOTIFY THE PHYSICIAN AND/OR THE RN CLINICAL HAND DRILLER FOR PHYSICIAN NOTIFICATION FOR EARLY SIGNS AND SYMPTOMS OF EXACERBATION OR DETERIORATION. PT / STAKE SETTER TO EDUCATE ON ATRIAL FIBRILLATION SELF-MANAGEMENT. PT / STAKE SETTER TO EDUCATE ON PNEUMONIA / ASPIRATION PNEUMONIA SELF-MANAGEMENT. PT/STAKE SETTER TO IDENTIFY FALL RISK FACTORS; EDUCATE THE PATIENT/CAREGIVER ON WAYS TO REDUCE FALL RISK FACTORS AND ESTABLISH HOME EXERCISE PROGRAM TO MINIMIZE FALL RISK. MAY TEACH THE PATIENT FLOOR RECOVERY WHEN CLINICALLY APPROPRIATE [code = PT TO EVALUATE, OBSERVE / ASSESS, AND MONITOR, STAKE SETTER TO OBSERVE AND MONITOR, PROVIDE SKILLED THERAPEUTIC INTERVENTION, ACTIVITY, EDUCATION, AND TRAINING TO ADDRESS GEN. WEAKNESS, POOR OVERALL ACTIVITY TOLERANCE, AND FUNCTIONAL LIMITATIONS IMPACTING SAFETY AND INDEPENDENCE. BED MOBILITY (PT/STAKE SETTER) PT/STAKE SETTER TO PROVIDE GAIT TRAINING FOR IMPROVED MOBILITY AND /OR TO NORMALIZE GAIT PATTERN THERAPEUTIC EXERCISES AND ESTABLISHING A HOME EXERCISE PROGRAM (PT/STAKE SETTER) PT/STAKE SETTER TO PROVIDE STAIR TRAINING PT / STAKE SETTER TO MONITOR AND EDUCATE ON OXYGEN SATURATION DURING ADLS/IADLS, NOTIFY PHYSICIAN AND/OR THE RN CLINICAL HAND DRILLER FOR PHYSICIAN NOTIFICATION AND IF O2 SATS BELOW PHYSICIAN ORDERED PARAMETERS AFTER 10 MIN OF REST PT / STAKE SETTER TO OBSERVE FOR EARLY SIGNS AND SYMPTOMS OF DEPRESSION OR DEPRESSION GETTING WORSE AND TO EDUCATE ON HOW TO FIND HELP. PT / STAKE SETTER MAY EDUCATE ON PAIN MANAGEMENT CLINICALLY INDICATED, INCLUDING NON-PHARMACOLOGICAL PAIN REDUCTION TECHNIQUES PT / STAKE SETTER TO MONITOR FOR HYPO/HYPERGLYCEMIA AND CONDUCT ROUTINE FOOT INSPECTIONS. RECORD PATIENT REPORTED BLOOD SUGAR LEVELS AND NOTIFY PHYSICIAN AND/OR THE RN CLINICAL HAND DRILLER FOR PHYSICIAN NOTIFICATION IF BLOOD SUGAR LEVELS ARE OUTSIDE ORDERED PARAMETERS. TEACH PATIENT/CAREGIVER ON DAILY FOOT INSPECTIONS PT / STAKE SETTER TO INSTRUCT PATIENT/CAREGIVER ON RISK FOR HOSPITALIZATION/EMERGENCY ROOM VISITS, TEACH SIGNS AND SYMPTOMS THAT PUT PATIENT AT RISK, WHEN TO NOTIFY NURSE/PHYSICIAN OF COMPLICATIONS/DECLINE, AND WHEN TO CALL 911. PT/STAKE SETTER TO EDUCATE ON ARTHRITIS SELF-MANAGEMENT PT / STAKE SETTER TO EDUCATE ON HEART FAILURE SELF-MANAGEMENT PT / STAKE SETTER TO EDUCATE ON HYPERTENSION SELF-MANAGEMENT PT TO ASSESS / STAKE SETTER TO MONITOR CARDIO/RESPIRATORY SYSTEM; AND NOTIFY THE PHYSICIAN AND/OR THE RN CLINICAL HAND DRILLER FOR PHYSICIAN NOTIFICATION FOR EARLY SIGNS AND SYMPTOMS OF EXACERBATION OR DETERIORATION. PT / STAKE SETTER TO EDUCATE ON ATRIAL FIBRILLATION SELF-MANAGEMENT. PT / STAKE SETTER TO EDUCATE ON PNEUMONIA / ASPIRATION PNEUMONIA SELF-MANAGEMENT. PT/STAKE SETTER TO IDENTIFY FALL RISK FACTORS; EDUCATE THE PATIENT/CAREGIVER ON WAYS TO REDUCE FALL RISK FACTORS AND ESTABLISH HOME EXERCISE PROGRAM TO MINIMIZE FALL RISK. MAY TEACH THE PATIENT FLOOR RECOVERY WHEN CLINICALLY APPROPRIATE] Future Scheduled Test AGENCY MAY PERFORM A RESUMPTION OF CARE VISIT FOLLOWING ANY HOSPITAL ADMISSION. OT TO EVALUATE, OBSERVE / ASSESS, AND MONITOR, MANAGER ENVIRONMENTAL AFFAIRS TO OBSERVE AND MONITOR, PROVIDE SKILLED THERAPEUTIC INTERVENTION, ACTIVITY, EDUCATION, AND TRAINING TO ADDRESS SAFETY AND INDEPENDENCE OF ADLS AND FUNCTIONAL TRANSFERS IN HOME ENVIRONMENT. ACTIVITIES OF DAILY LIVING (OT/MARIANNE) THERAPEUTIC EXERCISE (OT/MANAGER ENVIRONMENTAL AFFAIRS) ENERGY CONSERVATION/ACTIVITY DEMAND (OT/MANAGER ENVIRONMENTAL AFFAIRS) OT/MANAGER ENVIRONMENTAL AFFAIRS TO MONITOR AND EDUCATE ON OXYGEN SATURATION DURING ADLS/IADLS, NOTIFY PHYSICIAN AND/OR THE RN CLINICAL HAND DRILLER FOR PHYSICIAN NOTIFICATION AND IF O2 SATS BELOW 90% AFTER 10 MIN OF REST. OT / MANAGER ENVIRONMENTAL AFFAIRS TO IDENTIFY FALL RISK FACTORS; EDUCATE THE PATIENT/CAREGIVER ON WAYS TO REDUCE FALL RISK FACTORS AND ESTABLISH HOME EXERCISE PROGRAM TO MINIMIZE FALL RISK. MAY TEACH THE PATIENT FLOOR RECOVERY WHEN CLINICALLY APPROPRIATE. OT/MANAGER ENVIRONMENTAL AFFAIRS TO EDUCATE ON HYPERTENSION SELF-MANAGEMENT OT/MARIANNE TO EDUCATE ON ATRIAL FIBRILLATION SELF-MANAGEMENT. [code = AGENCY MAY PERFORM A RESUMPTION OF CARE VISIT FOLLOWING ANY HOSPITAL ADMISSION. OT TO EVALUATE, OBSERVE / ASSESS, AND MONITOR, MANAGER ENVIRONMENTAL AFFAIRS TO OBSERVE AND MONITOR, PROVIDE SKILLED THERAPEUTIC INTERVENTION, ACTIVITY, EDUCATION, AND TRAINING TO ADDRESS SAFETY AND INDEPENDENCE OF ADLS AND FUNCTIONAL TRANSFERS IN HOME ENVIRONMENT. ACTIVITIES OF DAILY LIVING (OT/MARIANNE) THERAPEUTIC EXERCISE (OT/MANAGER ENVIRONMENTAL AFFAIRS) ENERGY CONSERVATION/ACTIVITY DEMAND (OT/MARIANNE) OT/MANAGER ENVIRONMENTAL AFFAIRS TO MONITOR AND EDUCATE ON OXYGEN SATURATION DURING ADLS/IADLS, NOTIFY PHYSICIAN AND/OR THE RN CLINICAL HAND DRILLER FOR PHYSICIAN NOTIFICATION AND IF O2 SATS BELOW 90% AFTER 10 MIN OF REST. OT / MARIANNE TO IDENTIFY FALL RISK FACTORS; EDUCATE THE PATIENT/CAREGIVER ON WAYS TO REDUCE FALL RISK FACTORS AND ESTABLISH HOME EXERCISE PROGRAM TO MINIMIZE FALL RISK. MAY TEACH THE PATIENT FLOOR RECOVERY WHEN CLINICALLY APPROPRIATE. OT/MANAGER ENVIRONMENTAL AFFAIRS TO EDUCATE ON HYPERTENSION SELF-MANAGEMENT OT/MARIANNE TO [...] FRANKIE STOKES [facility] [id number]
--- OUTSIDE RECORDS SUMMARY | 2025-04-06 18:00 | XMS_ITS | Clinical Summary ---
Author Organization Unknown Care Team Providers [facility] [employer] Hand Name Role Phone DIGNA ARIEL, ESTRELLA Unavailable Unava dinora STOKES RN, FRANKIE Unavailable Unavailabl e KARI PT, DIDI Unavailable Unavailable NAT FORENSIC SPECIALIST, GAUDENCIO Unavailable Unavailabl e RADHA OT, ROLANDO Unavailable Unavailable JOANNE STEVEN, HATTIE Unavailable Unavailable Payers Payer Name Policy Type Policy Number Effective Date Expira tion Date MEDICARE.[facility] [id number] Problems Condition Name Condition Details Condition Category Status Onset Date Resolution Date Last Treatment Date Treating Clinician Comments 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 02-07 [...] OF PNEUMONIA (RECURRENT) Active 02-07 00:00: 00 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 STEROIDS Active 02-07 [...] 80 mg tablet 02-07 00:00: 00 Yes [id number] CHOLESTEROL 1 tablet DAILY 1 tablet DAILY (route: oral) Med Classific ation: Cardiovas cular Therapy Agents digoxin 125 mcg (0.125 mg) tablet 02-07 00:00: 00 02-21 23:59 :00 No [id number] HEART RHYTHM 1 tablet DAILY 1 tablet DAILY (route: oral) Med Classific ation: Cardiovas cular Therapy Agents escitalopra m 10 mg tablet 02-07 00:00: 00 Yes [id number] MOOD 1 tablet DAILY 1 tablet DAILY (route: oral) Med Classific ation: Central Nervous System Agents ezetimibe 10 mg tablet 02-07 00:00: 00 Yes [id number] CHOLESTEROL 1 tablet DAILY 1 tablet DAILY (route: oral) Med Classific ation: Cardiovas cular Therapy Agents metoprolol succinate ER 25 mg tablet,exte nded release 24 hr 02-07 00:00: 00 02-21 23:59 :00 No [id number] BLOOD PRESSURE 0.5 tablet DAILY 0.5 tablet DAILY (route: oral) Med Classific ation: Cardiovas cular Therapy Agents pantoprazol e 40 mg tablet,joão yed release 02-07 00:00: 00 02-21 23:59 :00 No [id number] STOMACH ACID 1 tablet DAILY 1 tablet DAILY (route: oral) Med Classific ation: Gastroint estinal Therapy Agents prednisone 5 mg tablet 02-07 00:00: 00 Yes [id number] ADRENAL INSUFFICIEN CY 1 tablet DAILY 1 tablet DAILY (route: oral) Med Classific ation: Endocrine spironolact one 25 mg tablet 02-07 00:00: 00 Yes [id number] FLUID RETENTION 0.5 tablet DAILY 0.5 tablet DAILY (route: oral) Med Classific ation: Cardiovas cular Therapy Agents tamsulosin 0.4 mg capsule 02-07 00:00: 00 02-21 23:59 :00 No [id number] URINARY HEALTH 1 capsule DAILY 1 capsule DAILY (route: oral) Med Classific ation: Genitouri nary Therapy acetaminoph en 325 mg tablet 2024-05 00:00: 00 Yes [id number] PAIN 2 tablet 2 TIMES DAILY 2 tablet 2 TIMES DAILY (route: oral) Med Classific ation: Analgesic , Anti-infl ammatory or Antipyret ic aspirin 81 mg tablet 2024-05 00:00: 00 Yes [id number] ANTICOAGULA NT 1 tablet DAILY 1 tablet DAILY (route: oral) Med Classific ation: Hematolog ical Agents ipratropium 0.5 mg-albutero l 3 mg (2.5 mg base)/3 mL nebulizatio n soln 2024-05 00:00: 00 Yes [id number] COPD 3 mL EVERY 6 HOURS 3 mL EVERY 6 HOURS (route: inhalation ) Med Classific ation: Respirato ry Therapy Agents Lanoxin 62.5 mcg (0.0625 mg) tablet 2024-05 00:00: 00 Yes [id number] CHF 1 tablet DAILY 1 tablet DAILY (route: oral) Med Classific ation: Cardiovas cular Therapy Agents Lasix 20 mg tablet 2024-05 00:00: 00 Yes [id number] CHF 1 tablet DAILY 1 tablet DAILY (route: oral) Med Classific ation: Cardiovas cular Therapy Agents Toprol XL 25 mg tablet,exte nded release 2024-05 00:00: 00 Yes [id number] BP 25 mg DAILY 25 mg DAILY [...] SYSTEM MANAGEMENT; RN TO ASSESS AND TEACH, BUILDING COMPONENTS DESIGNER/PUG MACHINE OPERATOR TO OBSERVE AND TEACH RELATED TO ALTERED RESPIRATORY STATUS TO MINIMIZE COMPLICATIONS AND REDUCE HOSPITALIZATION. [code = SN 1WK9 PT 1WK1 OT EFFECTIVE 02/10/2025K1 RESPIRATORY SYSTEM MANAGEMENT; RN TO ASSESS AND TEACH, BUILDING COMPONENTS DESIGNER/PUG MACHINE OPERATOR TO OBSERVE AND TEACH RELATED TO ALTERED RESPIRATORY STATUS TO MINIMIZE COMPLICATIONS AND REDUCE HOSPITALIZATION.] Future Scheduled Test TRACHEOSTO MY CARE MANAGEMENT; RN/BUILDING COMPONENTS DESIGNER/PUG MACHINE OPERATOR TO INSTRUCT PATIENT/CAREGIVER ON CARE AND MANAGEMENT OF TRACHEOSTOMY. RN/ BUILDING COMPONENTS DESIGNER/PUG MACHINE OPERATOR TO PROVIDE SKILLED TEACHING ON TRACH COLLAR SUCTIONING PRN WITH 14 FR SUCTION CATHETER PER PATIENT TRACH CARE WITH INNER CANNULA: REMOVE INNER CANNULA, CLEANSE WITH NORMAL SALINE AND OR STERILE WATER AND REINSERT NON-DISPOSABLE CANNULA SIZE OF INNER CANNULA 5 BROOKS [code = TRACHEOSTOMY CARE MANAGEMENT; RN/BUILDING COMPONENTS DESIGNER/PUG MACHINE OPERATOR TO INSTRUCT PATIENT/CAREGIVER ON CARE AND MANAGEMENT OF TRACHEOSTOMY. RN/ BUILDING COMPONENTS DESIGNER/PUG MACHINE OPERATOR TO PROVIDE SKILLED TEACHING ON TRACH COLLAR SUCTIONING PRN WITH 14 FR SUCTION CATHETER PER PATIENT TRACH CARE WITH INNER CANNULA: REMOVE INNER CANNULA, CLEANSE WITH NORMAL SALINE AND OR STERILE WATER AND REINSERT NON-DISPOSABLE CANNULA SIZE OF INNER CANNULA 5 BROOKS] Future Scheduled Test FALL REDUC TION MANAGEMENT; RN TO ASSESS AND OBSERVE, BUILDING COMPONENTS DESIGNER/PUG MACHINE OPERATOR TO OBSERVE FALL RISK FACTORS AND EDUCATE PATIENT/CAREGIVER ON STRATEGIES TO MINIMIZE THE RISK OF FALLING. [code = FALL REDUCTION MANAGEMENT; RN TO ASSESS AND OBSERVE, BUILDING COMPONENTS DESIGNER/PUG MACHINE OPERATOR TO OBSERVE FALL RISK FACTORS AND EDUCATE PATIENT/CAREGIVER ON STRATEGIES TO MINIMIZE THE RISK OF FALLING.] Future Scheduled Test ANEMIA MAN AGEMENT; RN TO ASSESS AND TEACH, PUG MACHINE OPERATOR/BUILDING COMPONENTS DESIGNER TO OBSERVE AND TEACH AND PROVIDE EDUCATION ON ANEMIA. [code = ANEMIA MANAGEMENT; RN TO ASSESS AND TEACH, PUG MACHINE OPERATOR/BUILDING COMPONENTS DESIGNER TO OBSERVE AND TEACH AND PROVIDE EDUCATION ON ANEMIA.] Future Scheduled Test RN TO OBSE RVE, ASSESS, EVALUATE, AND DEVELOP AN INDIVIDUALIZED PLAN OF CARE. AGENCY MAY ACCEPT ORDERS FROM CONSULTING PHYSICIANS RN TO OBSERVE AND ASSESS, BUILDING COMPONENTS DESIGNER/PUG MACHINE OPERATOR TO OBSERVE FOR RISK FOR FALLS AND INSTRUCT IN FALL PREVENTION, HOME SAFETY, MEDICATION MANAGEMENT, INFECTION PREVENTION, AND NUTRITION MANAGEMENT. RN/BUILDING COMPONENTS DESIGNER/PUG MACHINE OPERATOR NURSE MAY PERFORM O2 SATURATION LEVEL ON ADMISSION AND PRN FOR RN TO ASSESS/BUILDING COMPONENTS DESIGNER TO OBSERVE PATIENT, WITH NOTIFICATION TO THE PHYSICIAN IF SATURATION IS 90% IN THE ABSENCE OF MORE SPECIFIC PARAMETERS FROM THE PHYSICIAN. AGENCY MAY PERFORM A RESUMPTION OF CARE VISIT FOLLOWING ANY HOSPITAL ADMISSION. RN/BUILDING COMPONENTS DESIGNER/PUG MACHINE OPERATOR TO MONITOR CO-MORBID CONDITIONS LISTED ON THE PLAN OF CARE AND ANY NEW CONDITIONS THAT PRESENT THEMSELVES DURING THIS EPISODE TO IDENTIFY CHANGES AND INTERVENE TO MINIMIZE COMPLICATIONS. [code = RN TO OBSERVE, ASSESS, EVALUATE, AND DEVELOP AN INDIVIDUALIZED PLAN OF CARE. AGENCY MAY ACCEPT ORDERS FROM CONSULTING PHYSICIANS RN TO OBSERVE AND ASSESS, BUILDING COMPONENTS DESIGNER/PUG MACHINE OPERATOR TO OBSERVE FOR RISK FOR FALLS AND INSTRUCT IN FALL PREVENTION, HOME SAFETY, MEDICATION MANAGEMENT, INFECTION PREVENTION, AND NUTRITION MANAGEMENT. RN/BUILDING COMPONENTS DESIGNER/PUG MACHINE OPERATOR NURSE MAY PERFORM O2 SATURATION LEVEL ON ADMISSION AND PRN FOR RN TO ASSESS/BUILDING COMPONENTS DESIGNER TO OBSERVE PATIENT, WITH NOTIFICATION TO THE PHYSICIAN IF SATURATION IS 90% IN THE ABSENCE OF MORE SPECIFIC PARAMETERS FROM THE PHYSICIAN. AGENCY MAY PERFORM A RESUMPTION OF CARE VISIT FOLLOWING ANY HOSPITAL ADMISSION. RN/BUILDING COMPONENTS DESIGNER/PUG MACHINE OPERATOR TO MONITOR CO-MORBID CONDITIONS LISTED ON THE PLAN OF CARE AND ANY NEW CONDITIONS THAT PRESENT THEMSELVES DURING THIS EPISODE TO IDENTIFY CHANGES AND INTERVENE TO MINIMIZE COMPLICATIONS.] Future Scheduled Test PAIN MANAG EMENT; RN TO ASSESS AND TEACH, PUG MACHINE OPERATOR/BUILDING COMPONENTS DESIGNER TO OBSERVE AND TEACH AND PROVIDE EDUCATION ON PAIN MANAGEMENT TECHNIQUES. [code = PAIN MANAGEMENT; RN TO ASSESS AND TEACH, PUG MACHINE OPERATOR/BUILDING COMPONENTS DESIGNER TO OBSERVE AND TEACH AND PROVIDE EDUCATION ON PAIN MANAGEMENT TECHNIQUES.] Future Scheduled Test RISK FOR H OSPITALIZATION; RN TO ASSESS/TEACH, PUG MACHINE OPERATOR/BUILDING COMPONENTS DESIGNER TO OBSERVE/TEACH PATIENT/CAREGIVER ON RISK FOR HOSPITALIZATION/EMERGENCY ROOM VISITS, TEACH SIGNS AND SYMPTOMS THAT PUT PATIENT AT RISK, WHEN TO NOTIFY NURSE/PHYSICIAN OF COMPLICATIONS/DECLINE, AND WHEN TO CALL 911. [code = RISK FOR HOSPITALIZATION; RN TO ASSESS/TEACH, PUG MACHINE OPERATOR/BUILDING COMPONENTS DESIGNER TO OBSERVE/TEACH PATIENT/CAREGIVER ON RISK FOR HOSPITALIZATION/EMERGENCY ROOM VISITS, TEACH SIGNS AND SYMPTOMS THAT PUT PATIENT AT RISK, WHEN TO NOTIFY NURSE/PHYSICIAN OF COMPLICATIONS/DECLINE, AND WHEN TO CALL 911.] Future Scheduled Test CARDIOVASC ULAR SYSTEM; RN TO ASSESS/TEACH, BUILDING COMPONENTS DESIGNER/PUG MACHINE OPERATOR TO OBSERVE/TEACH RELATED TO ALTERED CARDIOVASCULAR STATUS TO MINIMIZE COMPLICATIONS AND REDUCE HOSPITALIZATION. [code = CARDIOVASCULAR SYSTEM; RN TO ASSESS/TEACH, BUILDING COMPONENTS DESIGNER/PUG MACHINE OPERATOR TO OBSERVE/TEACH RELATED TO ALTERED CARDIOVASCULAR STATUS TO MINIMIZE COMPLICATIONS AND REDUCE HOSPITALIZATION.] Future Scheduled Test HYPERTENSI ON MANAGEMENT; RN TO ASSESS AND TEACH, BUILDING COMPONENTS DESIGNER/PUG MACHINE OPERATOR TO OBSERVE AND TEACH WARNING SIGNS AND SYMPTOMS TO AVOID HOSPITALIZATION. [code = HYPERTENSION MANAGEMENT; RN TO ASSESS AND TEACH, BUILDING COMPONENTS DESIGNER/PUG MACHINE OPERATOR TO OBSERVE AND TEACH WARNING SIGNS AND SYMPTOMS TO AVOID HOSPITALIZATION.] Future Scheduled Test HEART FAIL URE MONITORING RN/PUG MACHINE OPERATOR/BUILDING COMPONENTS DESIGNER TO MONITOR PATIENT FOR SIGNS AND SYMPTOMS OF HEART FAILURE EXACERBATION, MONITOR FOR ADHERENCE WITH MEDICATION AND HEART FAILURE MANAGEMENT REGIMEN. [code = HEART FAILURE MONITORING RN/PUG MACHINE OPERATOR/BUILDING COMPONENTS DESIGNER TO MONITOR PATIENT FOR SIGNS AND SYMPTOMS OF HEART FAILURE EXACERBATION, MONITOR FOR ADHERENCE WITH MEDICATION AND HEART FAILURE MANAGEMENT REGIMEN.] Future Scheduled Test DIABETES M ONITORING RN/PUG MACHINE OPERATOR/BUILDING COMPONENTS DESIGNER TO MONITOR BLOOD SUGAR LOG FOR BLOOD SUGAR READINGS THAT ARE BEING CHECKED BY PATIENT, CAREGIVER NEEDED FOR SIGNS AND SYMPTOMS OF HYPER/HYPOGLYCEMIA. PATIENT THERAPEUTIC BLOOD SUGAR PARAMETERS ARE 70 - 300. REPORT BLOOD SUGARS OUT OF RANGE TO PHYSICIAN. NURSE MAY PERFORM FINGER STICK BLOOD GLUCOSE NEEDED FOR SIGNS AND SYMPTOMS OF HYPO AND HYPERGLYCEMIA. RN/PUG MACHINE OPERATOR/BUILDING COMPONENTS DESIGNER TO MONITOR ADHERENCE OF PATIENT/CAREGIVER PERFORMING DIABETIC FOOT CARE AND MAY PERFORM DIABETIC FOOT CARE PRN. RN/PUG MACHINE OPERATOR/BUILDING COMPONENTS DESIGNER TO MONITOR FOR ADHERENCE TO DIABETIC SELF-CARE AND MANAGEMENT INCLUDING MEDICATIONS. [code = DIABETES MONITORING RN/PUG MACHINE OPERATOR/BUILDING COMPONENTS DESIGNER TO MONITOR BLOOD SUGAR LOG FOR BLOOD SUGAR READINGS THAT ARE BEING CHECKED BY PATIENT, CAREGIVER NEEDED FOR SIGNS AND SYMPTOMS OF HYPER/HYPOGLYCEMIA. PATIENT THERAPEUTIC BLOOD SUGAR PARAMETERS ARE 70 - 300. REPORT BLOOD SUGARS OUT OF RANGE TO PHYSICIAN. NURSE MAY PERFORM FINGER STICK BLOOD GLUCOSE NEEDED FOR SIGNS AND SYMPTOMS OF HYPO AND HYPERGLYCEMIA. RN/PUG MACHINE OPERATOR/BUILDING COMPONENTS DESIGNER TO MONITOR ADHERENCE OF PATIENT/CAREGIVER PERFORMING DIABETIC FOOT CARE AND MAY PERFORM DIABETIC FOOT CARE PRN. RN/PUG MACHINE OPERATOR/BUILDING COMPONENTS DESIGNER TO MONITOR FOR ADHERENCE TO DIABETIC SELF-CARE AND MANAGEMENT INCLUDING MEDICATIONS.] Future Scheduled Test HYPOTENSIO N MANAGEMENT; RN TO ASSESS AND TEACH/ BUILDING COMPONENTS DESIGNER /PUG MACHINE OPERATOR TO OBSERVE AND TEACH WARNING SIGNS AND SYMPTOMS TO AVOID HOSPITALIZATION. [code = HYPOTENSION MANAGEMENT; RN TO ASSESS AND TEACH/ BUILDING COMPONENTS DESIGNER /PUG MACHINE OPERATOR TO OBSERVE AND TEACH WARNING SIGNS AND SYMPTOMS TO AVOID HOSPITALIZATION.] Future Scheduled Test ARRHYTHMIA MANAGEMENT; RN TO ASSESS AND TEACH, BUILDING COMPONENTS DESIGNER/PUG MACHINE OPERATOR TO OBSERVE AND TEACH WARNING SIGNS AND SYMPTOMS TO AVOID HOSPITALIZATION. [code = ARRHYTHMIA MANAGEMENT; RN TO ASSESS AND TEACH, BUILDING COMPONENTS DESIGNER/PUG MACHINE OPERATOR TO OBSERVE AND TEACH WARNING SIGNS AND SYMPTOMS TO AVOID HOSPITALIZATION.] Future Scheduled Test MEDICATION MANAGEMENT; RN/BUILDING COMPONENTS DESIGNER/PUG MACHINE OPERATOR TO REVIEW MEDICATIONS FOR INTERACTIONS, EFFECTIVENESS OF DRUG THERAPY, AND SIGNS/SYMPTOMS OF ADVERSE REACTIONS. MAY INSTRUCT AND REINFORCE MEDICATION TEACHING RELATED TO THE USE OF MEDICATIONS, DOSAGE, FREQUENCY, PURPOSE, SIDE EFFECTS, AND TO REPORT COMPLICATIONS. [code = MEDICATION MANAGEMENT; RN/BUILDING COMPONENTS DESIGNER/PUG MACHINE OPERATOR TO REVIEW MEDICATIONS FOR INTERACTIONS, [...] EVAL UATE, OBSERVE / ASSESS, AND MONITOR, FORENSIC SPECIALIST TO OBSERVE AND MONITOR, PROVIDE SKILLED THERAPEUTIC INTERVENTION, ACTIVITY, EDUCATION, AND TRAINING TO ADDRESS GEN. WEAKNESS, POOR OVERALL ACTIVITY TOLERANCE, AND FUNCTIONAL LIMITATIONS IMPACTING SAFETY AND INDEPENDENCE. BED MOBILITY (PT/FORENSIC SPECIALIST) PT/FORENSIC SPECIALIST TO PROVIDE GAIT TRAINING FOR IMPROVED MOBILITY AND /OR TO NORMALIZE GAIT PATTERN THERAPEUTIC EXERCISES AND ESTABLISHING A HOME EXERCISE PROGRAM (PT/FORENSIC SPECIALIST) PT/FORENSIC SPECIALIST TO PROVIDE STAIR TRAINING PT / FORENSIC SPECIALIST TO MONITOR AND EDUCATE ON OXYGEN SATURATION DURING ADLS/IADLS, NOTIFY PHYSICIAN AND/OR THE RN CLINICAL FOOD AND BEVERAGE OUTLETS MANAGER FOR PHYSICIAN NOTIFICATION AND IF O2 SATS BELOW PHYSICIAN ORDERED PARAMETERS AFTER 10 MIN OF REST PT / FORENSIC SPECIALIST TO OBSERVE FOR EARLY SIGNS AND SYMPTOMS OF DEPRESSION OR DEPRESSION GETTING WORSE AND TO EDUCATE ON HOW TO FIND HELP. PT / FORENSIC SPECIALIST MAY EDUCATE ON PAIN MANAGEMENT CLINICALLY INDICATED, INCLUDING NON-PHARMACOLOGICAL PAIN REDUCTION TECHNIQUES PT / FORENSIC SPECIALIST TO MONITOR FOR HYPO/HYPERGLYCEMIA AND CONDUCT ROUTINE FOOT INSPECTIONS. RECORD PATIENT REPORTED BLOOD SUGAR LEVELS AND NOTIFY PHYSICIAN AND/OR THE RN CLINICAL FOOD AND BEVERAGE OUTLETS MANAGER FOR PHYSICIAN NOTIFICATION IF BLOOD SUGAR LEVELS ARE OUTSIDE ORDERED PARAMETERS. TEACH PATIENT/CAREGIVER ON DAILY FOOT INSPECTIONS PT / FORENSIC SPECIALIST TO INSTRUCT PATIENT/CAREGIVER ON RISK FOR HOSPITALIZATION/EMERGENCY ROOM VISITS, TEACH SIGNS AND SYMPTOMS THAT PUT PATIENT AT RISK, WHEN TO NOTIFY NURSE/PHYSICIAN OF COMPLICATIONS/DECLINE, AND WHEN TO CALL 911. PT/FORENSIC SPECIALIST TO EDUCATE ON ARTHRITIS SELF-MANAGEMENT PT / FORENSIC SPECIALIST TO EDUCATE ON HEART FAILURE SELF-MANAGEMENT PT / FORENSIC SPECIALIST TO EDUCATE ON HYPERTENSION SELF-MANAGEMENT PT TO ASSESS / FORENSIC SPECIALIST TO MONITOR CARDIO/RESPIRATORY SYSTEM; AND NOTIFY THE PHYSICIAN AND/OR THE RN CLINICAL FOOD AND BEVERAGE OUTLETS MANAGER FOR PHYSICIAN NOTIFICATION FOR EARLY SIGNS AND SYMPTOMS OF EXACERBATION OR DETERIORATION. PT / FORENSIC SPECIALIST TO EDUCATE ON ATRIAL FIBRILLATION SELF-MANAGEMENT. PT / FORENSIC SPECIALIST TO EDUCATE ON PNEUMONIA / ASPIRATION PNEUMONIA SELF-MANAGEMENT. PT/FORENSIC SPECIALIST TO IDENTIFY FALL RISK FACTORS; EDUCATE THE PATIENT/CAREGIVER ON WAYS TO REDUCE FALL RISK FACTORS AND ESTABLISH HOME EXERCISE PROGRAM TO MINIMIZE FALL RISK. MAY TEACH THE PATIENT FLOOR RECOVERY WHEN CLINICALLY APPROPRIATE [code = PT TO EVALUATE, OBSERVE / ASSESS, AND MONITOR, FORENSIC SPECIALIST TO OBSERVE AND MONITOR, PROVIDE SKILLED THERAPEUTIC INTERVENTION, ACTIVITY, EDUCATION, AND TRAINING TO ADDRESS GEN. WEAKNESS, POOR OVERALL ACTIVITY TOLERANCE, AND FUNCTIONAL LIMITATIONS IMPACTING SAFETY AND INDEPENDENCE. BED MOBILITY (PT/FORENSIC SPECIALIST) PT/FORENSIC SPECIALIST TO PROVIDE GAIT TRAINING FOR IMPROVED MOBILITY AND /OR TO NORMALIZE GAIT PATTERN THERAPEUTIC EXERCISES AND ESTABLISHING A HOME EXERCISE PROGRAM (PT/FORENSIC SPECIALIST) PT/FORENSIC SPECIALIST TO PROVIDE STAIR TRAINING PT / FORENSIC SPECIALIST TO MONITOR AND EDUCATE ON OXYGEN SATURATION DURING ADLS/IADLS, NOTIFY PHYSICIAN AND/OR THE RN CLINICAL FOOD AND BEVERAGE OUTLETS MANAGER FOR PHYSICIAN NOTIFICATION AND IF O2 SATS BELOW PHYSICIAN ORDERED PARAMETERS AFTER 10 MIN OF REST PT / FORENSIC SPECIALIST TO OBSERVE FOR EARLY SIGNS AND SYMPTOMS OF DEPRESSION OR DEPRESSION GETTING WORSE AND TO EDUCATE ON HOW TO FIND HELP. PT / FORENSIC SPECIALIST MAY EDUCATE ON PAIN MANAGEMENT CLINICALLY INDICATED, INCLUDING NON-PHARMACOLOGICAL PAIN REDUCTION TECHNIQUES PT / FORENSIC SPECIALIST TO MONITOR FOR HYPO/HYPERGLYCEMIA AND CONDUCT ROUTINE FOOT INSPECTIONS. RECORD PATIENT REPORTED BLOOD SUGAR LEVELS AND NOTIFY PHYSICIAN AND/OR THE RN CLINICAL FOOD AND BEVERAGE OUTLETS MANAGER FOR PHYSICIAN NOTIFICATION IF BLOOD SUGAR LEVELS ARE OUTSIDE ORDERED PARAMETERS. TEACH PATIENT/CAREGIVER ON DAILY FOOT INSPECTIONS PT / FORENSIC SPECIALIST TO INSTRUCT PATIENT/CAREGIVER ON RISK FOR HOSPITALIZATION/EMERGENCY ROOM VISITS, TEACH SIGNS AND SYMPTOMS THAT PUT PATIENT AT RISK, WHEN TO NOTIFY NURSE/PHYSICIAN OF COMPLICATIONS/DECLINE, AND WHEN TO CALL 911. PT/FORENSIC SPECIALIST TO EDUCATE ON ARTHRITIS SELF-MANAGEMENT PT / FORENSIC SPECIALIST TO EDUCATE ON HEART FAILURE SELF-MANAGEMENT PT / FORENSIC SPECIALIST TO EDUCATE ON HYPERTENSION SELF-MANAGEMENT PT TO ASSESS / FORENSIC SPECIALIST TO MONITOR CARDIO/RESPIRATORY SYSTEM; AND NOTIFY THE PHYSICIAN AND/OR THE RN CLINICAL FOOD AND BEVERAGE OUTLETS MANAGER FOR PHYSICIAN NOTIFICATION FOR EARLY SIGNS AND SYMPTOMS OF EXACERBATION OR DETERIORATION. PT / FORENSIC SPECIALIST TO EDUCATE ON ATRIAL FIBRILLATION SELF-MANAGEMENT. PT / FORENSIC SPECIALIST TO EDUCATE ON PNEUMONIA / ASPIRATION PNEUMONIA SELF-MANAGEMENT. PT/FORENSIC SPECIALIST TO IDENTIFY FALL RISK FACTORS; EDUCATE THE PATIENT/CAREGIVER ON WAYS TO REDUCE FALL RISK FACTORS AND ESTABLISH HOME EXERCISE PROGRAM TO MINIMIZE FALL RISK. MAY TEACH THE PATIENT FLOOR RECOVERY WHEN CLINICALLY APPROPRIATE] Future Scheduled Test AGENCY MAY PERFORM A RESUMPTION OF CARE VISIT FOLLOWING ANY HOSPITAL ADMISSION. OT TO EVALUATE, OBSERVE / ASSESS, AND MONITOR, SUPERVISOR PRODUCTION MANAGING TO OBSERVE AND MONITOR, PROVIDE SKILLED THERAPEUTIC INTERVENTION, ACTIVITY, EDUCATION, AND TRAINING TO ADDRESS SAFETY AND INDEPENDENCE OF ADLS AND FUNCTIONAL TRANSFERS IN HOME ENVIRONMENT. ACTIVITIES OF DAILY LIVING (OT/MARIANNE) THERAPEUTIC EXERCISE (OT/SUPERVISOR PRODUCTION MANAGING) ENERGY CONSERVATION/ACTIVITY DEMAND (OT/SUPERVISOR PRODUCTION MANAGING) OT/SUPERVISOR PRODUCTION MANAGING TO MONITOR AND EDUCATE ON OXYGEN SATURATION DURING ADLS/IADLS, NOTIFY PHYSICIAN AND/OR THE RN CLINICAL FOOD AND BEVERAGE OUTLETS MANAGER FOR PHYSICIAN NOTIFICATION AND IF O2 SATS BELOW 90% AFTER 10 MIN OF REST. OT / SUPERVISOR PRODUCTION MANAGING TO IDENTIFY FALL RISK FACTORS; EDUCATE THE PATIENT/CAREGIVER ON WAYS TO REDUCE FALL RISK FACTORS AND ESTABLISH HOME EXERCISE PROGRAM TO MINIMIZE FALL RISK. MAY TEACH THE PATIENT FLOOR RECOVERY WHEN CLINICALLY APPROPRIATE. OT/SUPERVISOR PRODUCTION MANAGING TO EDUCATE ON HYPERTENSION SELF-MANAGEMENT OT/MARIANNE TO EDUCATE ON ATRIAL FIBRILLATION SELF-MANAGEMENT. [code = AGENCY MAY PERFORM A RESUMPTION OF CARE VISIT FOLLOWING ANY HOSPITAL ADMISSION. OT TO EVALUATE, OBSERVE / ASSESS, AND MONITOR, SUPERVISOR PRODUCTION MANAGING TO OBSERVE AND MONITOR, PROVIDE SKILLED THERAPEUTIC INTERVENTION, ACTIVITY, EDUCATION, AND TRAINING TO ADDRESS SAFETY AND INDEPENDENCE OF ADLS AND FUNCTIONAL TRANSFERS IN HOME ENVIRONMENT. ACTIVITIES OF DAILY LIVING (OT/MARIANNE) THERAPEUTIC EXERCISE (OT/SUPERVISOR PRODUCTION MANAGING) ENERGY CONSERVATION/ACTIVITY DEMAND (OT/MARIANNE) OT/SUPERVISOR PRODUCTION MANAGING TO MONITOR AND EDUCATE ON OXYGEN SATURATION DURING ADLS/IADLS, NOTIFY PHYSICIAN AND/OR THE RN CLINICAL FOOD AND BEVERAGE OUTLETS MANAGER FOR PHYSICIAN NOTIFICATION AND IF O2 SATS BELOW 90% AFTER 10 MIN OF REST. OT / MARIANNE TO IDENTIFY FALL RISK FACTORS; EDUCATE THE PATIENT/CAREGIVER ON WAYS TO REDUCE FALL RISK FACTORS AND ESTABLISH HOME EXERCISE PROGRAM TO MINIMIZE FALL RISK. MAY TEACH THE PATIENT FLOOR RECOVERY WHEN CLINICALLY APPROPRIATE. OT/SUPERVISOR PRODUCTION MANAGING TO EDUCATE ON HYPERTENSION SELF-MANAGEMENT OT/MARIANNE TO [...] 2025-04-07 00:00:00 Outpatient NEW ADMISSION [facility] [id number]
--- OUTSIDE RECORDS SUMMARY | 2025-04-06 18:00 | XMS_ITS | Clinical Summary ---
Author Organization Unknown Care Team Providers Care Fur Matcher Name Role Phone DIGNA ARIEL, ESTRELLA Unavailable Unava dinora STOKES RN, FRANKIE Unavailable Unavailabl e KARI PT, DIDI Unavailable Unavailable NAT FREIGHT SOLICITOR, GAUDENCIO Unavailable Unavailabl e RADHA OT, ROLANDO Unavailable Unavailable JOANNE STEVEN, HATTIE Unavailable Unavailable Payers Payer Name Policy Type Policy Number Effective Date Expira tion Date MEDICARE.[facility] [id number] Problems Condition Name Condition Details Condition Category Status Onset Date Resolution Date Last Treatment Date Treating Clinician Comments 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 02-07 [...] OF PNEUMONIA (RECURRENT) Active 02-07 00:00: 00 RN PATIENT CARE (CURRENT) USE OF SYSTEMIC STEROIDS Active 02-07 [...] 80 mg tablet 02-07 00:00: 00 Yes [id number] CHOLESTEROL 1 tablet DAILY 1 tablet DAILY (route: oral) Med Classific ation: Cardiovas cular Therapy Agents digoxin 125 mcg (0.125 mg) tablet 02-07 00:00: 00 02-21 23:59 :00 No [id number] HEART RHYTHM 1 tablet DAILY 1 tablet DAILY (route: oral) Med Classific ation: Cardiovas cular Therapy Agents escitalopra m 10 mg tablet 02-07 00:00: 00 Yes [id number] MOOD 1 tablet DAILY 1 tablet DAILY (route: oral) Med Classific ation: Central Nervous System Agents ezetimibe 10 mg tablet 02-07 00:00: 00 Yes [id number] CHOLESTEROL 1 tablet DAILY 1 tablet DAILY (route: oral) Med Classific ation: Cardiovas cular Therapy Agents metoprolol succinate ER 25 mg tablet,exte nded release 24 hr 02-07 00:00: 00 02-21 23:59 :00 No [id number] BLOOD PRESSURE 0.5 tablet DAILY 0.5 tablet DAILY (route: oral) Med Classific ation: Cardiovas cular Therapy Agents pantoprazol e 40 mg tablet,joão yed release 02-07 00:00: 00 02-21 23:59 :00 No [id number] STOMACH ACID 1 tablet DAILY 1 tablet DAILY (route: oral) Med Classific ation: Gastroint estinal Therapy Agents prednisone 5 mg tablet 02-07 00:00: 00 Yes [id number] ADRENAL INSUFFICIEN CY 1 tablet DAILY 1 tablet DAILY (route: oral) Med Classific ation: Endocrine spironolact one 25 mg tablet 02-07 00:00: 00 Yes [id number] FLUID RETENTION 0.5 tablet DAILY 0.5 tablet DAILY (route: oral) Med Classific ation: Cardiovas cular Therapy Agents tamsulosin 0.4 mg capsule 02-07 00:00: 00 02-21 23:59 :00 No [id number] URINARY HEALTH 1 capsule DAILY 1 capsule DAILY (route: oral) Med Classific ation: Genitouri nary Therapy acetaminoph en 325 mg tablet 2024-05 00:00: 00 Yes [id number] PAIN 2 tablet 2 TIMES DAILY 2 tablet 2 TIMES DAILY (route: oral) Med Classific ation: Analgesic , Anti-infl ammatory or Antipyret ic aspirin 81 mg tablet 2024-05 00:00: 00 Yes [id number] ANTICOAGULA NT 1 tablet DAILY 1 tablet DAILY (route: oral) Med Classific ation: Hematolog ical Agents ipratropium 0.5 mg-albutero l 3 mg (2.5 mg base)/3 mL nebulizatio n soln 2024-05 00:00: 00 Yes [id number] COPD 3 mL EVERY 6 HOURS 3 mL EVERY 6 HOURS (route: inhalation ) Med Classific ation: Respirato ry Therapy Agents Lanoxin 62.5 mcg (0.0625 mg) tablet 2024-05 00:00: 00 Yes [id number] CHF 1 tablet DAILY 1 tablet DAILY (route: oral) Med Classific ation: Cardiovas cular Therapy Agents Lasix 20 mg tablet 2024-05 00:00: 00 Yes [id number] CHF 1 tablet DAILY 1 tablet DAILY (route: oral) Med Classific ation: Cardiovas cular Therapy Agents Toprol XL 25 mg tablet,exte nded release 2024-05 00:00: 00 Yes [id number] BP 25 mg DAILY 25 mg DAILY [...] MANAGEMENT; RN TO ASSESS AND TEACH, PRODUCT DISTRIBUTION SPECIALIST/PLANNING DIRECTOR TO OBSERVE AND TEACH RELATED TO ALTERED RESPIRATORY STATUS TO MINIMIZE COMPLICATIONS AND REDUCE HOSPITALIZATION. [code = SN 1WK9 PT 1WK1 OT EFFECTIVE 02/10/2025K1 RESPIRATORY SYSTEM MANAGEMENT; RN TO ASSESS AND TEACH, PRODUCT DISTRIBUTION SPECIALIST/PLANNING DIRECTOR TO OBSERVE AND TEACH RELATED TO ALTERED RESPIRATORY STATUS TO MINIMIZE COMPLICATIONS AND REDUCE HOSPITALIZATION.] Future Scheduled Test TRACHEOSTO MY CARE MANAGEMENT; RN/PRODUCT DISTRIBUTION SPECIALIST/PLANNING DIRECTOR TO INSTRUCT PATIENT/CAREGIVER ON CARE AND MANAGEMENT OF TRACHEOSTOMY. RN/ PRODUCT DISTRIBUTION SPECIALIST/PLANNING DIRECTOR TO PROVIDE SKILLED TEACHING ON TRACH COLLAR SUCTIONING PRN WITH 14 FR SUCTION CATHETER PER PATIENT TRACH CARE WITH INNER CANNULA: REMOVE INNER CANNULA, CLEANSE WITH NORMAL SALINE AND OR STERILE WATER AND REINSERT NON-DISPOSABLE CANNULA SIZE OF INNER CANNULA 5 BROOKS [code = TRACHEOSTOMY CARE MANAGEMENT; RN/PRODUCT DISTRIBUTION SPECIALIST/PLANNING DIRECTOR TO INSTRUCT PATIENT/CAREGIVER ON CARE AND MANAGEMENT OF TRACHEOSTOMY. RN/ PRODUCT DISTRIBUTION SPECIALIST/PLANNING DIRECTOR TO PROVIDE SKILLED TEACHING ON TRACH COLLAR SUCTIONING PRN WITH 14 FR SUCTION CATHETER PER PATIENT TRACH CARE WITH INNER CANNULA: REMOVE INNER CANNULA, CLEANSE WITH NORMAL SALINE AND OR STERILE WATER AND REINSERT NON-DISPOSABLE CANNULA SIZE OF INNER CANNULA 5 BROOKS] Future Scheduled Test FALL REDUC TION MANAGEMENT; RN TO ASSESS AND OBSERVE, PRODUCT DISTRIBUTION SPECIALIST/PLANNING DIRECTOR TO OBSERVE FALL RISK FACTORS AND EDUCATE PATIENT/CAREGIVER ON STRATEGIES TO MINIMIZE THE RISK OF FALLING. [code = FALL REDUCTION MANAGEMENT; RN TO ASSESS AND OBSERVE, PRODUCT DISTRIBUTION SPECIALIST/PLANNING DIRECTOR TO OBSERVE FALL RISK FACTORS AND EDUCATE PATIENT/CAREGIVER ON STRATEGIES TO MINIMIZE THE RISK OF FALLING.] Future Scheduled Test ANEMIA MAN AGEMENT; RN TO ASSESS AND TEACH, PLANNING DIRECTOR/PRODUCT DISTRIBUTION SPECIALIST TO OBSERVE AND TEACH AND PROVIDE EDUCATION ON ANEMIA. [code = ANEMIA MANAGEMENT; RN TO ASSESS AND TEACH, PLANNING DIRECTOR/PRODUCT DISTRIBUTION SPECIALIST TO OBSERVE AND TEACH AND PROVIDE EDUCATION ON ANEMIA.] Future Scheduled Test RN TO OBSE RVE, ASSESS, EVALUATE, AND DEVELOP AN INDIVIDUALIZED PLAN OF CARE. AGENCY MAY ACCEPT ORDERS FROM CONSULTING PHYSICIANS RN TO OBSERVE AND ASSESS, PRODUCT DISTRIBUTION SPECIALIST/PLANNING DIRECTOR TO OBSERVE FOR RISK FOR FALLS AND INSTRUCT IN FALL PREVENTION, HOME SAFETY, MEDICATION MANAGEMENT, INFECTION PREVENTION, AND NUTRITION MANAGEMENT. RN/PRODUCT DISTRIBUTION SPECIALIST/PLANNING DIRECTOR NURSE MAY PERFORM O2 SATURATION LEVEL ON ADMISSION AND PRN FOR RN TO ASSESS/PRODUCT DISTRIBUTION SPECIALIST TO OBSERVE PATIENT, WITH NOTIFICATION TO THE PHYSICIAN IF SATURATION IS 90% IN THE ABSENCE OF MORE SPECIFIC PARAMETERS FROM THE PHYSICIAN. AGENCY MAY PERFORM A RESUMPTION OF CARE VISIT FOLLOWING ANY HOSPITAL ADMISSION. RN/PRODUCT DISTRIBUTION SPECIALIST/PLANNING DIRECTOR TO MONITOR CO-MORBID CONDITIONS LISTED ON THE PLAN OF CARE AND ANY NEW CONDITIONS THAT PRESENT THEMSELVES DURING THIS EPISODE TO IDENTIFY CHANGES AND INTERVENE TO MINIMIZE COMPLICATIONS. [code = RN TO OBSERVE, ASSESS, EVALUATE, AND DEVELOP AN INDIVIDUALIZED PLAN OF CARE. AGENCY MAY ACCEPT ORDERS FROM CONSULTING PHYSICIANS RN TO OBSERVE AND ASSESS, PRODUCT DISTRIBUTION SPECIALIST/PLANNING DIRECTOR TO OBSERVE FOR RISK FOR FALLS AND INSTRUCT IN FALL PREVENTION, HOME SAFETY, MEDICATION MANAGEMENT, INFECTION PREVENTION, AND NUTRITION MANAGEMENT. RN/PRODUCT DISTRIBUTION SPECIALIST/PLANNING DIRECTOR NURSE MAY PERFORM O2 SATURATION LEVEL ON ADMISSION AND PRN FOR RN TO ASSESS/PRODUCT DISTRIBUTION SPECIALIST TO OBSERVE PATIENT, WITH NOTIFICATION TO THE PHYSICIAN IF SATURATION IS 90% IN THE ABSENCE OF MORE SPECIFIC PARAMETERS FROM THE PHYSICIAN. AGENCY MAY PERFORM A RESUMPTION OF CARE VISIT FOLLOWING ANY HOSPITAL ADMISSION. RN/PRODUCT DISTRIBUTION SPECIALIST/PLANNING DIRECTOR TO MONITOR CO-MORBID CONDITIONS LISTED ON THE PLAN OF CARE AND ANY NEW CONDITIONS THAT PRESENT THEMSELVES DURING THIS EPISODE TO IDENTIFY CHANGES AND INTERVENE TO MINIMIZE COMPLICATIONS.] Future Scheduled Test PAIN MANAG EMENT; RN TO ASSESS AND TEACH, PLANNING DIRECTOR/PRODUCT DISTRIBUTION SPECIALIST TO OBSERVE AND TEACH AND PROVIDE EDUCATION ON PAIN MANAGEMENT TECHNIQUES. [code = PAIN MANAGEMENT; RN TO ASSESS AND TEACH, PLANNING DIRECTOR/PRODUCT DISTRIBUTION SPECIALIST TO OBSERVE AND TEACH AND PROVIDE EDUCATION ON PAIN MANAGEMENT TECHNIQUES.] Future Scheduled Test RISK FOR H OSPITALIZATION; RN TO ASSESS/TEACH, PLANNING DIRECTOR/PRODUCT DISTRIBUTION SPECIALIST TO OBSERVE/TEACH PATIENT/CAREGIVER ON RISK FOR HOSPITALIZATION/EMERGENCY ROOM VISITS, TEACH SIGNS AND SYMPTOMS THAT PUT PATIENT AT RISK, WHEN TO NOTIFY NURSE/PHYSICIAN OF COMPLICATIONS/DECLINE, AND WHEN TO CALL 911. [code = RISK FOR HOSPITALIZATION; RN TO ASSESS/TEACH, PLANNING DIRECTOR/PRODUCT DISTRIBUTION SPECIALIST TO OBSERVE/TEACH PATIENT/CAREGIVER ON RISK FOR HOSPITALIZATION/EMERGENCY ROOM VISITS, TEACH SIGNS AND SYMPTOMS THAT PUT PATIENT AT RISK, WHEN TO NOTIFY NURSE/PHYSICIAN OF COMPLICATIONS/DECLINE, AND WHEN TO CALL 911.] Future Scheduled Test CARDIOVASC ULAR SYSTEM; RN TO ASSESS/TEACH, PRODUCT DISTRIBUTION SPECIALIST/PLANNING DIRECTOR TO OBSERVE/TEACH RELATED TO ALTERED CARDIOVASCULAR STATUS TO MINIMIZE COMPLICATIONS AND REDUCE HOSPITALIZATION. [code = CARDIOVASCULAR SYSTEM; RN TO ASSESS/TEACH, PRODUCT DISTRIBUTION SPECIALIST/PLANNING DIRECTOR TO OBSERVE/TEACH RELATED TO ALTERED CARDIOVASCULAR STATUS TO MINIMIZE COMPLICATIONS AND REDUCE HOSPITALIZATION.] Future Scheduled Test HYPERTENSI ON MANAGEMENT; RN TO ASSESS AND TEACH, PRODUCT DISTRIBUTION SPECIALIST/PLANNING DIRECTOR TO OBSERVE AND TEACH WARNING SIGNS AND SYMPTOMS TO AVOID HOSPITALIZATION. [code = HYPERTENSION MANAGEMENT; RN TO ASSESS AND TEACH, PRODUCT DISTRIBUTION SPECIALIST/PLANNING DIRECTOR TO OBSERVE AND TEACH WARNING SIGNS AND SYMPTOMS TO AVOID HOSPITALIZATION.] Future Scheduled Test HEART FAIL URE MONITORING RN/PLANNING DIRECTOR/PRODUCT DISTRIBUTION SPECIALIST TO MONITOR PATIENT FOR SIGNS AND SYMPTOMS OF HEART FAILURE EXACERBATION, MONITOR FOR ADHERENCE WITH MEDICATION AND HEART FAILURE MANAGEMENT REGIMEN. [code = HEART FAILURE MONITORING RN/PLANNING DIRECTOR/PRODUCT DISTRIBUTION SPECIALIST TO MONITOR PATIENT FOR SIGNS AND SYMPTOMS OF HEART FAILURE EXACERBATION, MONITOR FOR ADHERENCE WITH MEDICATION AND HEART FAILURE MANAGEMENT REGIMEN.] Future Scheduled Test DIABETES M ONITORING RN/PLANNING DIRECTOR/PRODUCT DISTRIBUTION SPECIALIST TO MONITOR BLOOD SUGAR LOG FOR BLOOD SUGAR READINGS THAT ARE BEING CHECKED BY PATIENT, CAREGIVER NEEDED FOR SIGNS AND SYMPTOMS OF HYPER/HYPOGLYCEMIA. PATIENT THERAPEUTIC BLOOD SUGAR PARAMETERS ARE 70 - 300. REPORT BLOOD SUGARS OUT OF RANGE TO PHYSICIAN. NURSE MAY PERFORM FINGER STICK BLOOD GLUCOSE NEEDED FOR SIGNS AND SYMPTOMS OF HYPO AND HYPERGLYCEMIA. RN/PLANNING DIRECTOR/PRODUCT DISTRIBUTION SPECIALIST TO MONITOR ADHERENCE OF PATIENT/CAREGIVER PERFORMING DIABETIC FOOT CARE AND MAY PERFORM DIABETIC FOOT CARE PRN. RN/PLANNING DIRECTOR/PRODUCT DISTRIBUTION SPECIALIST TO MONITOR FOR ADHERENCE TO DIABETIC SELF-CARE AND MANAGEMENT INCLUDING MEDICATIONS. [code = DIABETES MONITORING RN/PLANNING DIRECTOR/PRODUCT DISTRIBUTION SPECIALIST TO MONITOR BLOOD SUGAR LOG FOR BLOOD SUGAR READINGS THAT ARE BEING CHECKED BY PATIENT, CAREGIVER NEEDED FOR SIGNS AND SYMPTOMS OF HYPER/HYPOGLYCEMIA. PATIENT THERAPEUTIC BLOOD SUGAR PARAMETERS ARE 70 - 300. REPORT BLOOD SUGARS OUT OF RANGE TO PHYSICIAN. NURSE MAY PERFORM FINGER STICK BLOOD GLUCOSE NEEDED FOR SIGNS AND SYMPTOMS OF HYPO AND HYPERGLYCEMIA. RN/PLANNING DIRECTOR/PRODUCT DISTRIBUTION SPECIALIST TO MONITOR ADHERENCE OF PATIENT/CAREGIVER PERFORMING DIABETIC FOOT CARE AND MAY PERFORM DIABETIC FOOT CARE PRN. RN/PLANNING DIRECTOR/PRODUCT DISTRIBUTION SPECIALIST TO MONITOR FOR ADHERENCE TO DIABETIC SELF-CARE AND MANAGEMENT INCLUDING MEDICATIONS.] Future Scheduled Test HYPOTENSIO N MANAGEMENT; RN TO ASSESS AND TEACH/ PRODUCT DISTRIBUTION SPECIALIST /PLANNING DIRECTOR TO OBSERVE AND TEACH WARNING SIGNS AND SYMPTOMS TO AVOID HOSPITALIZATION. [code = HYPOTENSION MANAGEMENT; RN TO ASSESS AND TEACH/ PRODUCT DISTRIBUTION SPECIALIST /PLANNING DIRECTOR TO OBSERVE AND TEACH WARNING SIGNS AND SYMPTOMS TO AVOID HOSPITALIZATION.] Future Scheduled Test ARRHYTHMIA MANAGEMENT; RN TO ASSESS AND TEACH, PRODUCT DISTRIBUTION SPECIALIST/PLANNING DIRECTOR TO OBSERVE AND TEACH WARNING SIGNS AND SYMPTOMS TO AVOID HOSPITALIZATION. [code = ARRHYTHMIA MANAGEMENT; RN TO ASSESS AND TEACH, PRODUCT DISTRIBUTION SPECIALIST/PLANNING DIRECTOR TO OBSERVE AND TEACH WARNING SIGNS AND SYMPTOMS TO AVOID HOSPITALIZATION.] Future Scheduled Test MEDICATION MANAGEMENT; RN/PRODUCT DISTRIBUTION SPECIALIST/PLANNING DIRECTOR TO REVIEW MEDICATIONS FOR INTERACTIONS, EFFECTIVENESS OF DRUG THERAPY, AND SIGNS/SYMPTOMS OF ADVERSE REACTIONS. MAY INSTRUCT AND REINFORCE MEDICATION TEACHING RELATED TO THE USE OF MEDICATIONS, DOSAGE, FREQUENCY, PURPOSE, SIDE EFFECTS, AND TO REPORT COMPLICATIONS. [code = MEDICATION MANAGEMENT; RN/PRODUCT DISTRIBUTION SPECIALIST/PLANNING DIRECTOR TO REVIEW MEDICATIONS FOR INTERACTIONS, EFFECTIVENESS [...] EVAL UATE, OBSERVE / ASSESS, AND MONITOR, FREIGHT SOLICITOR TO OBSERVE AND MONITOR, PROVIDE SKILLED THERAPEUTIC INTERVENTION, ACTIVITY, EDUCATION, AND TRAINING TO ADDRESS GEN. WEAKNESS, POOR OVERALL ACTIVITY TOLERANCE, AND FUNCTIONAL LIMITATIONS IMPACTING SAFETY AND INDEPENDENCE. BED MOBILITY (PT/FREIGHT SOLICITOR) PT/FREIGHT SOLICITOR TO PROVIDE GAIT TRAINING FOR IMPROVED MOBILITY AND /OR TO NORMALIZE GAIT PATTERN THERAPEUTIC EXERCISES AND ESTABLISHING A HOME EXERCISE PROGRAM (PT/FREIGHT SOLICITOR) PT/FREIGHT SOLICITOR TO PROVIDE STAIR TRAINING PT / FREIGHT SOLICITOR TO MONITOR AND EDUCATE ON OXYGEN SATURATION DURING ADLS/IADLS, NOTIFY PHYSICIAN AND/OR THE RN CLINICAL SEAMSTRESS FITTER FOR PHYSICIAN NOTIFICATION AND IF O2 SATS BELOW PHYSICIAN ORDERED PARAMETERS AFTER 10 MIN OF REST PT / FREIGHT SOLICITOR TO OBSERVE FOR EARLY SIGNS AND SYMPTOMS OF DEPRESSION OR DEPRESSION GETTING WORSE AND TO EDUCATE ON HOW TO FIND HELP. PT / FREIGHT SOLICITOR MAY EDUCATE ON PAIN MANAGEMENT CLINICALLY INDICATED, INCLUDING NON-PHARMACOLOGICAL PAIN REDUCTION TECHNIQUES PT / FREIGHT SOLICITOR TO MONITOR FOR HYPO/HYPERGLYCEMIA AND CONDUCT ROUTINE FOOT INSPECTIONS. RECORD PATIENT REPORTED BLOOD SUGAR LEVELS AND NOTIFY PHYSICIAN AND/OR THE RN CLINICAL SEAMSTRESS FITTER FOR PHYSICIAN NOTIFICATION IF BLOOD SUGAR LEVELS ARE OUTSIDE ORDERED PARAMETERS. TEACH PATIENT/CAREGIVER ON DAILY FOOT INSPECTIONS PT / FREIGHT SOLICITOR TO INSTRUCT PATIENT/CAREGIVER ON RISK FOR HOSPITALIZATION/EMERGENCY ROOM VISITS, TEACH SIGNS AND SYMPTOMS THAT PUT PATIENT AT RISK, WHEN TO NOTIFY NURSE/PHYSICIAN OF COMPLICATIONS/DECLINE, AND WHEN TO CALL 911. PT/FREIGHT SOLICITOR TO EDUCATE ON ARTHRITIS SELF-MANAGEMENT PT / FREIGHT SOLICITOR TO EDUCATE ON HEART FAILURE SELF-MANAGEMENT PT / FREIGHT SOLICITOR TO EDUCATE ON HYPERTENSION SELF-MANAGEMENT PT TO ASSESS / FREIGHT SOLICITOR TO MONITOR CARDIO/RESPIRATORY SYSTEM; AND NOTIFY THE PHYSICIAN AND/OR THE RN CLINICAL SEAMSTRESS FITTER FOR PHYSICIAN NOTIFICATION FOR EARLY SIGNS AND SYMPTOMS OF EXACERBATION OR DETERIORATION. PT / FREIGHT SOLICITOR TO EDUCATE ON ATRIAL FIBRILLATION SELF-MANAGEMENT. PT / FREIGHT SOLICITOR TO EDUCATE ON PNEUMONIA / ASPIRATION PNEUMONIA SELF-MANAGEMENT. PT/FREIGHT SOLICITOR TO IDENTIFY FALL RISK FACTORS; EDUCATE THE PATIENT/CAREGIVER ON WAYS TO REDUCE FALL RISK FACTORS AND ESTABLISH HOME EXERCISE PROGRAM TO MINIMIZE FALL RISK. MAY TEACH THE PATIENT FLOOR RECOVERY WHEN CLINICALLY APPROPRIATE [code = PT TO EVALUATE, OBSERVE / ASSESS, AND MONITOR, FREIGHT SOLICITOR TO OBSERVE AND MONITOR, PROVIDE SKILLED THERAPEUTIC INTERVENTION, ACTIVITY, EDUCATION, AND TRAINING TO ADDRESS GEN. WEAKNESS, POOR OVERALL ACTIVITY TOLERANCE, AND FUNCTIONAL LIMITATIONS IMPACTING SAFETY AND INDEPENDENCE. BED MOBILITY (PT/FREIGHT SOLICITOR) PT/FREIGHT SOLICITOR TO PROVIDE GAIT TRAINING FOR IMPROVED MOBILITY AND /OR TO NORMALIZE GAIT PATTERN THERAPEUTIC EXERCISES AND ESTABLISHING A HOME EXERCISE PROGRAM (PT/FREIGHT SOLICITOR) PT/FREIGHT SOLICITOR TO PROVIDE STAIR TRAINING PT / FREIGHT SOLICITOR TO MONITOR AND EDUCATE ON OXYGEN SATURATION DURING ADLS/IADLS, NOTIFY PHYSICIAN AND/OR THE RN CLINICAL SEAMSTRESS FITTER FOR PHYSICIAN NOTIFICATION AND IF O2 SATS BELOW PHYSICIAN ORDERED PARAMETERS AFTER 10 MIN OF REST PT / FREIGHT SOLICITOR TO OBSERVE FOR EARLY SIGNS AND SYMPTOMS OF DEPRESSION OR DEPRESSION GETTING WORSE AND TO EDUCATE ON HOW TO FIND HELP. PT / FREIGHT SOLICITOR MAY EDUCATE ON PAIN MANAGEMENT CLINICALLY INDICATED, INCLUDING NON-PHARMACOLOGICAL PAIN REDUCTION TECHNIQUES PT / FREIGHT SOLICITOR TO MONITOR FOR HYPO/HYPERGLYCEMIA AND CONDUCT ROUTINE FOOT INSPECTIONS. RECORD PATIENT REPORTED BLOOD SUGAR LEVELS AND NOTIFY PHYSICIAN AND/OR THE RN CLINICAL SEAMSTRESS FITTER FOR PHYSICIAN NOTIFICATION IF BLOOD SUGAR LEVELS ARE OUTSIDE ORDERED PARAMETERS. TEACH PATIENT/CAREGIVER ON DAILY FOOT INSPECTIONS PT / FREIGHT SOLICITOR TO INSTRUCT PATIENT/CAREGIVER ON RISK FOR HOSPITALIZATION/EMERGENCY ROOM VISITS, TEACH SIGNS AND SYMPTOMS THAT PUT PATIENT AT RISK, WHEN TO NOTIFY NURSE/PHYSICIAN OF COMPLICATIONS/DECLINE, AND WHEN TO CALL 911. PT/FREIGHT SOLICITOR TO EDUCATE ON ARTHRITIS SELF-MANAGEMENT PT / FREIGHT SOLICITOR TO EDUCATE ON HEART FAILURE SELF-MANAGEMENT PT / FREIGHT SOLICITOR TO EDUCATE ON HYPERTENSION SELF-MANAGEMENT PT TO ASSESS / FREIGHT SOLICITOR TO MONITOR CARDIO/RESPIRATORY SYSTEM; AND NOTIFY THE PHYSICIAN AND/OR THE RN CLINICAL SEAMSTRESS FITTER FOR PHYSICIAN NOTIFICATION FOR EARLY SIGNS AND SYMPTOMS OF EXACERBATION OR DETERIORATION. PT / FREIGHT SOLICITOR TO EDUCATE ON ATRIAL FIBRILLATION SELF-MANAGEMENT. PT / FREIGHT SOLICITOR TO EDUCATE ON PNEUMONIA / ASPIRATION PNEUMONIA SELF-MANAGEMENT. PT/FREIGHT SOLICITOR TO IDENTIFY FALL RISK FACTORS; EDUCATE THE PATIENT/CAREGIVER ON WAYS TO REDUCE FALL RISK FACTORS AND ESTABLISH HOME EXERCISE PROGRAM TO MINIMIZE FALL RISK. MAY TEACH THE PATIENT FLOOR RECOVERY WHEN CLINICALLY APPROPRIATE] Future Scheduled Test AGENCY MAY PERFORM A RESUMPTION OF CARE VISIT FOLLOWING ANY HOSPITAL ADMISSION. OT TO EVALUATE, OBSERVE / ASSESS, AND MONITOR, PERFORMANCE REPORTER TO OBSERVE AND MONITOR, PROVIDE SKILLED THERAPEUTIC INTERVENTION, ACTIVITY, EDUCATION, AND TRAINING TO ADDRESS SAFETY AND INDEPENDENCE OF ADLS AND FUNCTIONAL TRANSFERS IN HOME ENVIRONMENT. ACTIVITIES OF DAILY LIVING (OT/MARIANNE) THERAPEUTIC EXERCISE (OT/PERFORMANCE REPORTER) ENERGY CONSERVATION/ACTIVITY DEMAND (OT/PERFORMANCE REPORTER) OT/PERFORMANCE REPORTER TO MONITOR AND EDUCATE ON OXYGEN SATURATION DURING ADLS/IADLS, NOTIFY PHYSICIAN AND/OR THE RN CLINICAL SEAMSTRESS FITTER FOR PHYSICIAN NOTIFICATION AND IF O2 SATS BELOW 90% AFTER 10 MIN OF REST. OT / PERFORMANCE REPORTER TO IDENTIFY FALL RISK FACTORS; EDUCATE THE PATIENT/CAREGIVER ON WAYS TO REDUCE FALL RISK FACTORS AND ESTABLISH HOME EXERCISE PROGRAM TO MINIMIZE FALL RISK. MAY TEACH THE PATIENT FLOOR RECOVERY WHEN CLINICALLY APPROPRIATE. OT/PERFORMANCE REPORTER TO EDUCATE ON HYPERTENSION SELF-MANAGEMENT OT/MARIANNE TO EDUCATE ON ATRIAL FIBRILLATION SELF-MANAGEMENT. [code = AGENCY MAY PERFORM A RESUMPTION OF CARE VISIT FOLLOWING ANY HOSPITAL ADMISSION. OT TO EVALUATE, OBSERVE / ASSESS, AND MONITOR, PERFORMANCE REPORTER TO OBSERVE AND MONITOR, PROVIDE SKILLED THERAPEUTIC INTERVENTION, ACTIVITY, EDUCATION, AND TRAINING TO ADDRESS SAFETY AND INDEPENDENCE OF ADLS AND FUNCTIONAL TRANSFERS IN HOME ENVIRONMENT. ACTIVITIES OF DAILY LIVING (OT/MARIANNE) THERAPEUTIC EXERCISE (OT/PERFORMANCE REPORTER) ENERGY CONSERVATION/ACTIVITY DEMAND (OT/MARIANNE) OT/PERFORMANCE REPORTER TO MONITOR AND EDUCATE ON OXYGEN SATURATION DURING ADLS/IADLS, NOTIFY PHYSICIAN AND/OR THE RN CLINICAL SEAMSTRESS FITTER FOR PHYSICIAN NOTIFICATION AND IF O2 SATS BELOW 90% AFTER 10 MIN OF REST. OT / MARIANNE TO IDENTIFY FALL RISK FACTORS; EDUCATE THE PATIENT/CAREGIVER ON WAYS TO REDUCE FALL RISK FACTORS AND ESTABLISH HOME EXERCISE PROGRAM TO MINIMIZE FALL RISK. MAY TEACH THE PATIENT FLOOR RECOVERY WHEN CLINICALLY APPROPRIATE. OT/PERFORMANCE REPORTER TO EDUCATE ON HYPERTENSION SELF-MANAGEMENT OT/MARIANNE TO [...] ADMISSION [facility] [id number]
--- OUTSIDE RECORDS SUMMARY | 2025-04-06 18:00 | XMS_ITS | Clinical Summary ---
Author Organization Unknown Care Team Providers Care Surveillance Operator Name Role Phone DIGNA ARIEL, ESTRELLA Unavailable Unava dinora STOKES RN, FRANKIE Unavailable Unavailabl e KARI PT, DIDI Unavailable Unavailable NAT SHIPPING ASSISTANT, GAUDENCIO Unavailable Unavailabl e RADHA OT, ROLANDO Unavailable Unavailable JOANNE STEVEN, HATTIE Unavailable Unavailable Payers Payer Name Policy Type Policy Number Effective Date Expira tion Date MEDICARE.[facility] [id number] Problems Condition Name Condition Details Condition Category [...] OF PNEUMONIA (RECURRENT) Active 02-07 00:00: 00 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) USE OF SYSTEMIC STEROIDS Active 02-07 [...] 80 mg tablet 02-07 00:00: 00 Yes [id number] CHOLESTEROL 1 tablet DAILY 1 tablet DAILY (route: oral) Med Classific ation: Cardiovas cular Therapy Agents digoxin 125 mcg (0.125 mg) tablet 02-07 00:00: 00 02-21 23:59 :00 No [id number] HEART RHYTHM 1 tablet DAILY 1 tablet DAILY (route: oral) Med Classific ation: Cardiovas cular Therapy Agents escitalopra m 10 mg tablet 02-07 00:00: 00 Yes [id number] MOOD 1 tablet DAILY 1 tablet DAILY (route: oral) Med Classific ation: Central Nervous System Agents ezetimibe 10 mg tablet 02-07 00:00: 00 Yes [id number] CHOLESTEROL 1 tablet DAILY 1 tablet DAILY (route: oral) Med Classific ation: Cardiovas cular Therapy Agents metoprolol succinate ER 25 mg tablet,exte nded release 24 hr 02-07 00:00: 00 02-21 23:59 :00 No [id number] BLOOD PRESSURE 0.5 tablet DAILY 0.5 tablet DAILY (route: oral) Med Classific ation: Cardiovas cular Therapy Agents pantoprazol e 40 mg tablet,joão yed release 02-07 00:00: 00 02-21 23:59 :00 No [id number] STOMACH ACID 1 tablet DAILY 1 tablet DAILY (route: oral) Med Classific ation: Gastroint estinal Therapy Agents prednisone 5 mg tablet 02-07 00:00: 00 Yes [id number] ADRENAL INSUFFICIEN CY 1 tablet DAILY 1 tablet DAILY (route: oral) Med Classific ation: Endocrine spironolact one 25 mg tablet 02-07 00:00: 00 Yes [id number] FLUID RETENTION 0.5 tablet DAILY 0.5 tablet DAILY (route: oral) Med Classific ation: Cardiovas cular Therapy Agents tamsulosin 0.4 mg capsule 02-07 00:00: 00 02-21 23:59 :00 No [id number] URINARY HEALTH 1 capsule DAILY 1 capsule DAILY (route: oral) Med Classific ation: Genitouri nary Therapy acetaminoph en 325 mg tablet 2024-05 00:00: 00 Yes [id number] PAIN 2 tablet 2 TIMES DAILY 2 tablet 2 TIMES DAILY (route: oral) Med Classific ation: Analgesic , Anti-infl ammatory or Antipyret ic aspirin 81 mg tablet 2024-05 00:00: 00 Yes [id number] ANTICOAGULA NT 1 tablet DAILY 1 tablet DAILY (route: oral) Med Classific ation: Hematolog ical Agents ipratropium 0.5 mg-albutero l 3 mg (2.5 mg base)/3 mL nebulizatio n soln 2024-05 00:00: 00 Yes [id number] COPD 3 mL EVERY 6 HOURS 3 mL EVERY 6 HOURS (route: inhalation ) Med Classific ation: Respirato ry Therapy Agents Lanoxin 62.5 mcg (0.0625 mg) tablet 2024-05 00:00: 00 Yes [id number] CHF 1 tablet DAILY 1 tablet DAILY (route: oral) Med Classific ation: Cardiovas cular Therapy Agents Lasix 20 mg tablet 2024-05 00:00: 00 Yes [id number] CHF 1 tablet DAILY 1 tablet DAILY (route: oral) Med Classific ation: Cardiovas cular Therapy Agents Toprol XL 25 mg tablet,exte nded release 2024-05 00:00: 00 Yes [id number] BP 25 mg DAILY 25 mg DAILY [...] MANAGEMENT; RN TO ASSESS AND TEACH, FREIGHT FLAGMAN/PRESS TENDER [employer] TO OBSERVE AND TEACH RELATED TO ALTERED RESPIRATORY STATUS TO MINIMIZE COMPLICATIONS AND REDUCE HOSPITALIZATION. [code = SN 1WK9 PT 1WK1 OT EFFECTIVE 02/10/2025K1 RESPIRATORY SYSTEM MANAGEMENT; RN TO ASSESS AND TEACH, FREIGHT FLAGMAN/PRESS T[employer]ER [employer] TO OBSERVE AND TEACH RELATED TO ALTERED RESPIRATORY STATUS TO MINIMIZE COMPLICATIONS AND REDUCE HOSPITALIZATION.] Future Scheduled Test TRACHEOSTO MY CARE MANAGEMENT; RN/FREIGHT FLAGMAN/PRESS [employer] TO INSTRUCT PATIENT/CAREGIVER ON CARE AND MANAGEMENT OF TRACHEOSTOMY. RN/ FREIGHT FLAGMAN/PRESS [employer] TO PROVIDE SKILLED TEACHING ON TRACH COLLAR SUCTIONING PRN WITH 14 FR SUCTION CATHETER PER PATIENT TRACH CARE WITH INNER CANNULA: REMOVE INNER CANNULA, CLEANSE WITH NORMAL SALINE AND OR STERILE WATER AND REINSERT NON-DISPOSABLE CANNULA SIZE OF INNER CANNULA 5 BROOKS [code = TRACHEOSTOMY CARE MANAGEMENT; RN/FREIGHT FLAGMAN/PRESS [employer] TO INSTRUCT PATIENT/CAREGIVER ON CARE AND MANAGEMENT OF TRACHEOSTOMY. RN/ FREIGHT FLAGMAN/PRESS [employer] TO PROVIDE SKILLED TEACHING ON TRACH COLLAR SUCTIONING PRN WITH 14 FR SUCTION CATHETER PER PATIENT TRACH CARE WITH INNER CANNULA: REMOVE INNER CANNULA, CLEANSE WITH NORMAL SALINE AND OR STERILE WATER AND REINSERT NON-DISPOSABLE CANNULA SIZE OF INNER CANNULA 5 BROOKS] Future Scheduled Test FALL REDUC TION MANAGEMENT; RN TO ASSESS AND OBSERVE, FREIGHT FLAGMAN/[employer] TO OBSERVE FALL RISK FACTORS AND EDUCATE PATIENT/CAREGIVER ON STRATEGIES TO MINIMIZE THE RISK OF FALLING. [code = FALL REDUCTION MANAGEMENT; RN TO ASSESS AND OBSERVE, FREIGHT FLAGMAN/[employer] TO OBSERVE FALL RISK FACTORS AND EDUCATE PATIENT/CAREGIVER ON STRATEGIES TO MINIMIZE THE RISK OF FALLING.] Future Scheduled Test ANEMIA MAN AGEMENT; RN TO ASSESS AND TEACH, PRESS T[employer]/FREIGHT FLAGMAN TO OBSERVE AND TEACH AND PROVIDE EDUCATION ON ANEMIA. [code = ANEMIA MANAGEMENT; RN TO ASSESS AND TEACH, PRESS [employer]/FREIGHT FLAGMAN TO OBSERVE AND TEACH AND PROVIDE EDUCATION ON ANEMIA.] Future Scheduled Test RN TO OBSE RVE, ASSESS, EVALUATE, AND DEVELOP AN INDIVIDUALIZED PLAN OF CARE. AGENCY MAY ACCEPT ORDERS FROM CONSULTING PHYSICIANS RN TO OBSERVE AND ASSESS, FREIGHT FLAGMAN/[employer] TO OBSERVE FOR RISK FOR FALLS AND INSTRUCT IN FALL PREVENTION, HOME SAFETY, MEDICATION MANAGEMENT, INFECTION PREVENTION, AND NUTRITION MANAGEMENT. RN/FREIGHT FLAGMAN/[employer] NURSE MAY PERFORM O2 SATURATION LEVEL ON ADMISSION AND PRN FOR RN TO ASSESS/FREIGHT FLAGMAN TO OBSERVE PATIENT, WITH NOTIFICATION TO THE PHYSICIAN IF SATURATION IS 90% IN THE ABSENCE OF MORE SPECIFIC PARAMETERS FROM THE PHYSICIAN. AGENCY MAY PERFORM A RESUMPTION OF CARE VISIT FOLLOWING ANY HOSPITAL ADMISSION. RN/FREIGHT FLAGMAN/[employer] TO MONITOR CO-MORBID CONDITIONS LISTED ON THE PLAN OF CARE AND ANY NEW CONDITIONS THAT PRESENT THEMSELVES DURING THIS EPISODE TO IDENTIFY CHANGES AND INTERVENE TO MINIMIZE COMPLICATIONS. [code = RN TO OBSERVE, ASSESS, EVALUATE, AND DEVELOP AN INDIVIDUALIZED PLAN OF CARE. AGENCY MAY ACCEPT ORDERS FROM CONSULTING PHYSICIANS RN TO OBSERVE AND ASSESS, FREIGHT FLAGMAN/[employer] T[employer]ER [employer] TO OBSERVE FOR RISK FOR FALLS AND INSTRUCT IN FALL PREVENTION, HOME SAFETY, MEDICATION MANAGEMENT, INFECTION PREVENTION, AND NUTRITION MANAGEMENT. RN/FREIGHT FLAGMAN/[employer] NURSE MAY PERFORM O2 SATURATION LEVEL ON ADMISSION AND PRN FOR RN TO ASSESS/FREIGHT FLAGMAN TO OBSERVE PATIENT, WITH NOTIFICATION TO THE PHYSICIAN IF SATURATION IS 90% IN THE ABSENCE OF MORE SPECIFIC PARAMETERS FROM THE PHYSICIAN. AGENCY MAY PERFORM A RESUMPTION OF CARE VISIT FOLLOWING ANY HOSPITAL ADMISSION. RN/FREIGHT FLAGMAN/PRESS T[employer]ER [employer] TO MONITOR CO-MORBID CONDITIONS LISTED ON THE PLAN OF CARE AND ANY NEW CONDITIONS THAT PRESENT THEMSELVES DURING THIS EPISODE TO IDENTIFY CHANGES AND INTERVENE TO MINIMIZE COMPLICATIONS.] Future Scheduled Test PAIN MANAG EMENT; RN TO ASSESS AND TEACH, PRESS T[employer]ER [employer]/FREIGHT FLAGMAN TO OBSERVE AND TEACH AND PROVIDE EDUCATION ON PAIN MANAGEMENT TECHNIQUES. [code = PAIN MANAGEMENT; RN TO ASSESS AND TEACH, [employer]ESS [employer]/FREIGHT FLAGMAN TO OBSERVE AND TEACH AND PROVIDE EDUCATION ON PAIN MANAGEMENT TECHNIQUES.] Future Scheduled Test RISK FOR H OSPITALIZATION; RN TO ASSESS/TEACH, PRESS T[employer]/FREIGHT FLAGMAN TO OBSERVE/TEACH PATIENT/CAREGIVER ON RISK FOR HOSPITALIZATION/EMERGENCY ROOM VISITS, TEACH SIGNS AND SYMPTOMS THAT PUT PATIENT AT RISK, WHEN TO NOTIFY NURSE/PHYSICIAN OF COMPLICATIONS/DECLINE, AND WHEN TO CALL 911. [code = RISK FOR HOSPITALIZATION; RN TO ASSESS/TEACH, PRESS [employer]/FREIGHT FLAGMAN TO OBSERVE/TEACH PATIENT/CAREGIVER ON RISK FOR HOSPITALIZATION/EMERGENCY ROOM VISITS, TEACH SIGNS AND SYMPTOMS THAT PUT PATIENT AT RISK, WHEN TO NOTIFY NURSE/PHYSICIAN OF COMPLICATIONS/DECLINE, AND WHEN TO CALL 911.] Future Scheduled Test CARDIOVASC ULAR SYSTEM; RN TO ASSESS/TEACH, FREIGHT FLAGMAN/[employer] TO OBSERVE/TEACH RELATED TO ALTERED CARDIOVASCULAR STATUS TO MINIMIZE COMPLICATIONS AND REDUCE HOSPITALIZATION. [code = CARDIOVASCULAR SYSTEM; RN TO ASSESS/TEACH, FREIGHT FLAGMAN/[employer] TO OBSERVE/TEACH RELATED TO ALTERED CARDIOVASCULAR STATUS TO MINIMIZE COMPLICATIONS AND REDUCE HOSPITALIZATION.] Future Scheduled Test HYPERTENSI ON MANAGEMENT; RN TO ASSESS AND TEACH, FREIGHT FLAGMAN/[employer] TO OBSERVE AND TEACH WARNING SIGNS AND SYMPTOMS TO AVOID HOSPITALIZATION. [code = HYPERTENSION MANAGEMENT; RN TO ASSESS AND TEACH, FREIGHT FLAGMAN/[employer] TO OBSERVE AND TEACH WARNING SIGNS AND SYMPTOMS TO AVOID HOSPITALIZATION.] Future Scheduled Test HEART FAIL URE MONITORING RN/PRESS T[employer]ER [employer]/FREIGHT FLAGMAN TO MONITOR PATIENT FOR SIGNS AND SYMPTOMS OF HEART FAILURE EXACERBATION, MONITOR FOR ADHERENCE WITH MEDICATION AND HEART FAILURE MANAGEMENT REGIMEN. [code = HEART FAILURE MONITORING RN/PRESS T[employer]ER [employer]/FREIGHT FLAGMAN TO MONITOR PATIENT FOR SIGNS AND SYMPTOMS OF HEART FAILURE EXACERBATION, MONITOR FOR ADHERENCE WITH MEDICATION AND HEART FAILURE MANAGEMENT REGIMEN.] Future Scheduled Test DIABETES M ONITORING RN/PRESS T[employer]ER [employer]/FREIGHT FLAGMAN TO MONITOR BLOOD SUGAR LOG FOR BLOOD SUGAR READINGS THAT ARE BEING CHECKED BY PATIENT, CAREGIVER NEEDED FOR SIGNS AND SYMPTOMS OF HYPER/HYPOGLYCEMIA. PATIENT THERAPEUTIC BLOOD SUGAR PARAMETERS ARE 70 - 300. REPORT BLOOD SUGARS OUT OF RANGE TO PHYSICIAN. NURSE MAY PERFORM FINGER STICK BLOOD GLUCOSE NEEDED FOR SIGNS AND SYMPTOMS OF HYPO AND HYPERGLYCEMIA. RN/PRESS T[employer]ER [employer]/FREIGHT FLAGMAN TO MONITOR ADHERENCE OF PATIENT/CAREGIVER PERFORMING DIABETIC FOOT CARE AND MAY PERFORM DIABETIC FOOT CARE PRN. RN/PRESS [employer]/FREIGHT FLAGMAN TO MONITOR FOR ADHERENCE TO DIABETIC SELF-CARE AND MANAGEMENT INCLUDING MEDICATIONS. [code = DIABETES MONITORING RN/PRESS [employer]/FREIGHT FLAGMAN TO MONITOR BLOOD SUGAR LOG FOR BLOOD SUGAR READINGS THAT ARE BEING CHECKED BY PATIENT, CAREGIVER NEEDED FOR SIGNS AND SYMPTOMS OF HYPER/HYPOGLYCEMIA. PATIENT THERAPEUTIC BLOOD SUGAR PARAMETERS ARE 70 - 300. REPORT BLOOD SUGARS OUT OF RANGE TO PHYSICIAN. NURSE MAY PERFORM FINGER STICK BLOOD GLUCOSE NEEDED FOR SIGNS AND SYMPTOMS OF HYPO AND HYPERGLYCEMIA. RN/PRESS [employer]/FREIGHT FLAGMAN TO MONITOR ADHERENCE OF PATIENT/CAREGIVER PERFORMING DIABETIC FOOT CARE AND MAY PERFORM DIABETIC FOOT CARE PRN. RN/PRESS [employer]/FREIGHT FLAGMAN TO MONITOR FOR ADHERENCE TO DIABETIC SELF-CARE AND MANAGEMENT INCLUDING MEDICATIONS.] Future Scheduled Test HYPOTENSIO N MANAGEMENT; RN TO ASSESS AND TEACH/ FREIGHT FLAGMAN /[employer] TO OBSERVE AND TEACH WARNING SIGNS AND SYMPTOMS TO AVOID HOSPITALIZATION. [code = HYPOTENSION MANAGEMENT; RN TO ASSESS AND TEACH/ FREIGHT FLAGMAN /[employer] TO OBSERVE AND TEACH WARNING SIGNS AND SYMPTOMS TO AVOID HOSPITALIZATION.] Future Scheduled Test ARRHYTHMIA MANAGEMENT; RN TO ASSESS AND TEACH, FREIGHT FLAGMAN/[employer] TO OBSERVE AND TEACH WARNING SIGNS AND SYMPTOMS TO AVOID HOSPITALIZATION. [code = ARRHYTHMIA MANAGEMENT; RN TO ASSESS AND TEACH, FREIGHT FLAGMAN/[employer] TO OBSERVE AND TEACH WARNING SIGNS AND SYMPTOMS TO AVOID HOSPITALIZATION.] Future Scheduled Test MEDICATION MANAGEMENT; RN/FREIGHT FLAGMAN/[employer] TO REVIEW MEDICATIONS FOR INTERACTIONS, EFFECTIVENESS OF DRUG THERAPY, AND SIGNS/SYMPTOMS OF ADVERSE REACTIONS. MAY INSTRUCT AND REINFORCE MEDICATION TEACHING RELATED TO THE USE OF MEDICATIONS, DOSAGE, FREQUENCY, PURPOSE, SIDE EFFECTS, AND TO REPORT COMPLICATIONS. [code = MEDICATION MANAGEMENT; RN/FREIGHT FLAGMAN/[employer] TO REVIEW MEDICATIONS FOR INTERACTIONS, EFFECTIVENESS OF [...] EVAL UATE, OBSERVE / ASSESS, AND MONITOR, SHIPPING ASSISTANT TO OBSERVE AND MONITOR, PROVIDE SKILLED THERAPEUTIC INTERVENTION, ACTIVITY, EDUCATION, AND TRAINING TO ADDRESS GEN. WEAKNESS, POOR OVERALL ACTIVITY TOLERANCE, AND FUNCTIONAL LIMITATIONS IMPACTING SAFETY AND INDEPENDENCE. BED MOBILITY (PT/SHIPPING ASSISTANT) PT/SHIPPING ASSISTANT TO PROVIDE GAIT TRAINING FOR IMPROVED MOBILITY AND /OR TO NORMALIZE GAIT PATTERN THERAPEUTIC EXERCISES AND ESTABLISHING A HOME EXERCISE PROGRAM (PT/SHIPPING ASSISTANT) PT/SHIPPING ASSISTANT TO PROVIDE STAIR TRAINING PT / SHIPPING ASSISTANT TO MONITOR AND EDUCATE ON OXYGEN SATURATION DURING ADLS/IADLS, NOTIFY PHYSICIAN AND/OR THE RN CLINICAL COMMAND CENTER ANALYST FOR PHYSICIAN NOTIFICATION AND IF O2 SATS BELOW PHYSICIAN ORDERED PARAMETERS AFTER 10 MIN OF REST PT / SHIPPING ASSISTANT TO OBSERVE FOR EARLY SIGNS AND SYMPTOMS OF DEPRESSION OR DEPRESSION GETTING WORSE AND TO EDUCATE ON HOW TO FIND HELP. PT / SHIPPING ASSISTANT MAY EDUCATE ON PAIN MANAGEMENT CLINICALLY INDICATED, INCLUDING NON-PHARMACOLOGICAL PAIN REDUCTION TECHNIQUES PT / SHIPPING ASSISTANT TO MONITOR FOR HYPO/HYPERGLYCEMIA AND CONDUCT ROUTINE FOOT INSPECTIONS. RECORD PATIENT REPORTED BLOOD SUGAR LEVELS AND NOTIFY PHYSICIAN AND/OR THE RN CLINICAL COMMAND CENTER ANALYST FOR PHYSICIAN NOTIFICATION IF BLOOD SUGAR LEVELS ARE OUTSIDE ORDERED PARAMETERS. TEACH PATIENT/CAREGIVER ON DAILY FOOT INSPECTIONS PT / SHIPPING ASSISTANT TO INSTRUCT PATIENT/CAREGIVER ON RISK FOR HOSPITALIZATION/EMERGENCY ROOM VISITS, TEACH SIGNS AND SYMPTOMS THAT PUT PATIENT AT RISK, WHEN TO NOTIFY NURSE/PHYSICIAN OF COMPLICATIONS/DECLINE, AND WHEN TO CALL 911. PT/SHIPPING ASSISTANT TO EDUCATE ON ARTHRITIS SELF-MANAGEMENT PT / SHIPPING ASSISTANT TO EDUCATE ON HEART FAILURE SELF-MANAGEMENT PT / SHIPPING ASSISTANT TO EDUCATE ON HYPERTENSION SELF-MANAGEMENT PT TO ASSESS / SHIPPING ASSISTANT TO MONITOR CARDIO/RESPIRATORY SYSTEM; AND NOTIFY THE PHYSICIAN AND/OR THE RN CLINICAL COMMAND CENTER ANALYST FOR PHYSICIAN NOTIFICATION FOR EARLY SIGNS AND SYMPTOMS OF EXACERBATION OR DETERIORATION. PT / SHIPPING ASSISTANT TO EDUCATE ON ATRIAL FIBRILLATION SELF-MANAGEMENT. PT / SHIPPING ASSISTANT TO EDUCATE ON PNEUMONIA / ASPIRATION PNEUMONIA SELF-MANAGEMENT. PT/SHIPPING ASSISTANT TO IDENTIFY FALL RISK FACTORS; EDUCATE THE PATIENT/CAREGIVER ON WAYS TO REDUCE FALL RISK FACTORS AND ESTABLISH HOME EXERCISE PROGRAM TO MINIMIZE FALL RISK. MAY TEACH THE PATIENT FLOOR RECOVERY WHEN CLINICALLY APPROPRIATE [code = PT TO EVALUATE, OBSERVE / ASSESS, AND MONITOR, SHIPPING ASSISTANT TO OBSERVE AND MONITOR, PROVIDE SKILLED THERAPEUTIC INTERVENTION, ACTIVITY, EDUCATION, AND TRAINING TO ADDRESS GEN. WEAKNESS, POOR OVERALL ACTIVITY TOLERANCE, AND FUNCTIONAL LIMITATIONS IMPACTING SAFETY AND INDEPENDENCE. BED MOBILITY (PT/SHIPPING ASSISTANT) PT/SHIPPING ASSISTANT TO PROVIDE GAIT TRAINING FOR IMPROVED MOBILITY AND /OR TO NORMALIZE GAIT PATTERN THERAPEUTIC EXERCISES AND ESTABLISHING A HOME EXERCISE PROGRAM (PT/SHIPPING ASSISTANT) PT/SHIPPING ASSISTANT TO PROVIDE STAIR TRAINING PT / SHIPPING ASSISTANT TO MONITOR AND EDUCATE ON OXYGEN SATURATION DURING ADLS/IADLS, NOTIFY PHYSICIAN AND/OR THE RN CLINICAL COMMAND CENTER ANALYST FOR PHYSICIAN NOTIFICATION AND IF O2 SATS BELOW PHYSICIAN ORDERED PARAMETERS AFTER 10 MIN OF REST PT / SHIPPING ASSISTANT TO OBSERVE FOR EARLY SIGNS AND SYMPTOMS OF DEPRESSION OR DEPRESSION GETTING WORSE AND TO EDUCATE ON HOW TO FIND HELP. PT / SHIPPING ASSISTANT MAY EDUCATE ON PAIN MANAGEMENT CLINICALLY INDICATED, INCLUDING NON-PHARMACOLOGICAL PAIN REDUCTION TECHNIQUES PT / SHIPPING ASSISTANT TO MONITOR FOR HYPO/HYPERGLYCEMIA AND CONDUCT ROUTINE FOOT INSPECTIONS. RECORD PATIENT REPORTED BLOOD SUGAR LEVELS AND NOTIFY PHYSICIAN AND/OR THE RN CLINICAL COMMAND CENTER ANALYST FOR PHYSICIAN NOTIFICATION IF BLOOD SUGAR LEVELS ARE OUTSIDE ORDERED PARAMETERS. TEACH PATIENT/CAREGIVER ON DAILY FOOT INSPECTIONS PT / SHIPPING ASSISTANT TO INSTRUCT PATIENT/CAREGIVER ON RISK FOR HOSPITALIZATION/EMERGENCY ROOM VISITS, TEACH SIGNS AND SYMPTOMS THAT PUT PATIENT AT RISK, WHEN TO NOTIFY NURSE/PHYSICIAN OF COMPLICATIONS/DECLINE, AND WHEN TO CALL 911. PT/SHIPPING ASSISTANT TO EDUCATE ON ARTHRITIS SELF-MANAGEMENT PT / SHIPPING ASSISTANT TO EDUCATE ON HEART FAILURE SELF-MANAGEMENT PT / SHIPPING ASSISTANT TO EDUCATE ON HYPERTENSION SELF-MANAGEMENT PT TO ASSESS / SHIPPING ASSISTANT TO MONITOR CARDIO/RESPIRATORY SYSTEM; AND NOTIFY THE PHYSICIAN AND/OR THE RN CLINICAL COMMAND CENTER ANALYST FOR PHYSICIAN NOTIFICATION FOR EARLY SIGNS AND SYMPTOMS OF EXACERBATION OR DETERIORATION. PT / SHIPPING ASSISTANT TO EDUCATE ON ATRIAL FIBRILLATION SELF-MANAGEMENT. PT / SHIPPING ASSISTANT TO EDUCATE ON PNEUMONIA / ASPIRATION PNEUMONIA SELF-MANAGEMENT. PT/SHIPPING ASSISTANT TO IDENTIFY FALL RISK FACTORS; EDUCATE THE PATIENT/CAREGIVER ON WAYS TO REDUCE FALL RISK FACTORS AND ESTABLISH HOME EXERCISE PROGRAM TO MINIMIZE FALL RISK. MAY TEACH THE PATIENT FLOOR RECOVERY WHEN CLINICALLY APPROPRIATE] Future Scheduled Test AGENCY MAY PERFORM A RESUMPTION OF CARE VISIT FOLLOWING ANY HOSPITAL ADMISSION. OT TO EVALUATE, OBSERVE / ASSESS, AND MONITOR, DROP CLIPPER TO OBSERVE AND MONITOR, PROVIDE SKILLED THERAPEUTIC INTERVENTION, ACTIVITY, EDUCATION, AND TRAINING TO ADDRESS SAFETY AND INDEPENDENCE OF ADLS AND FUNCTIONAL TRANSFERS IN HOME ENVIRONMENT. ACTIVITIES OF DAILY LIVING (OT/MARIANNE) THERAPEUTIC EXERCISE (OT/DROP CLIPPER) ENERGY CONSERVATION/ACTIVITY DEMAND (OT/DROP CLIPPER) OT/DROP CLIPPER TO MONITOR AND EDUCATE ON OXYGEN SATURATION DURING ADLS/IADLS, NOTIFY PHYSICIAN AND/OR THE RN CLINICAL COMMAND CENTER ANALYST FOR PHYSICIAN NOTIFICATION AND IF O2 SATS BELOW 90% AFTER 10 MIN OF REST. OT / DROP CLIPPER TO IDENTIFY FALL RISK FACTORS; EDUCATE THE PATIENT/CAREGIVER ON WAYS TO REDUCE FALL RISK FACTORS AND ESTABLISH HOME EXERCISE PROGRAM TO MINIMIZE FALL RISK. MAY TEACH THE PATIENT FLOOR RECOVERY WHEN CLINICALLY APPROPRIATE. OT/DROP CLIPPER TO EDUCATE ON HYPERTENSION SELF-MANAGEMENT OT/MARIANNE TO EDUCATE ON ATRIAL FIBRILLATION SELF-MANAGEMENT. [code = AGENCY MAY PERFORM A RESUMPTION OF CARE VISIT FOLLOWING ANY HOSPITAL ADMISSION. OT TO EVALUATE, OBSERVE / ASSESS, AND MONITOR, DROP CLIPPER TO OBSERVE AND MONITOR, PROVIDE SKILLED THERAPEUTIC INTERVENTION, ACTIVITY, EDUCATION, AND TRAINING TO ADDRESS SAFETY AND INDEPENDENCE OF ADLS AND FUNCTIONAL TRANSFERS IN HOME ENVIRONMENT. ACTIVITIES OF DAILY LIVING (OT/MARIANNE) THERAPEUTIC EXERCISE (OT/DROP CLIPPER) ENERGY CONSERVATION/ACTIVITY DEMAND (OT/MARIANNE) OT/DROP CLIPPER TO MONITOR AND EDUCATE ON OXYGEN SATURATION DURING ADLS/IADLS, NOTIFY PHYSICIAN AND/OR THE RN CLINICAL COMMAND CENTER ANALYST FOR PHYSICIAN NOTIFICATION AND IF O2 SATS BELOW 90% AFTER 10 MIN OF REST. OT / MARIANNE TO IDENTIFY FALL RISK FACTORS; EDUCATE THE PATIENT/CAREGIVER ON WAYS TO REDUCE FALL RISK FACTORS AND ESTABLISH HOME EXERCISE PROGRAM TO MINIMIZE FALL RISK. MAY TEACH THE PATIENT FLOOR RECOVERY WHEN CLINICALLY APPROPRIATE. OT/DROP CLIPPER TO EDUCATE ON HYPERTENSION SELF-MANAGEMENT OT/MARIANNE TO [...] ADMISSION [facility] [id number] 26.42
--- OUTSIDE RECORDS SUMMARY | 2025-04-06 18:00 | XMS_ITS | Clinical Summary ---
Author Organization Unknown Care Team Providers Care Salesperson [employer] Name Role Phone DIGNA ARIEL, ESTRELLA Unavailable Unava dinora STOKES RN, FRANKIE Unavailable Unavailabl e KARI PT, DIDI Unavailable Unavailable NTA MATHEMATICS TEACHER, GAUDENCIO Unavailable Unavailabl e RADHA OT, ROLANDO Unavailable Unavailable JOANNE STEVEN, HATTIE Unavailable Unavailable Payers Payer Name Policy Type Policy Number Effective Date Expira tion Date MEDICARE.[facility] [id number] Problems Condition Name Condition Details Condition Category [...] OF PNEUMONIA (RECURRENT) Active 02-07 00:00: 00 GAS ANALYST (CURRENT) USE OF SYSTEMIC STEROIDS Active [...] 80 mg tablet 02-07 00:00: 00 Yes [id number] CHOLESTEROL 1 tablet DAILY 1 tablet DAILY (route: oral) Med Classific ation: Cardiovas cular Therapy Agents digoxin 125 mcg (0.125 mg) tablet 02-07 00:00: 00 02-21 23:59 :00 No [id number] HEART RHYTHM 1 tablet DAILY 1 tablet DAILY (route: oral) Med Classific ation: Cardiovas cular Therapy Agents escitalopra m 10 mg tablet 02-07 00:00: 00 Yes [id number] MOOD 1 tablet DAILY 1 tablet DAILY (route: oral) Med Classific ation: Central Nervous System Agents ezetimibe 10 mg tablet 02-07 00:00: 00 Yes [id number] CHOLESTEROL 1 tablet DAILY 1 tablet DAILY (route: oral) Med Classific ation: Cardiovas cular Therapy Agents metoprolol succinate ER 25 mg tablet,exte nded release 24 hr 02-07 00:00: 00 02-21 23:59 :00 No [id number] BLOOD PRESSURE 0.5 tablet DAILY 0.5 tablet DAILY (route: oral) Med Classific ation: Cardiovas cular Therapy Agents pantoprazol e 40 mg tablet,joão yed release 02-07 00:00: 00 02-21 23:59 :00 No [id number] STOMACH ACID 1 tablet DAILY 1 tablet DAILY (route: oral) Med Classific ation: Gastroint estinal Therapy Agents prednisone 5 mg tablet 02-07 00:00: 00 Yes [id number] ADRENAL INSUFFICIEN CY 1 tablet DAILY 1 tablet DAILY (route: oral) Med Classific ation: Endocrine spironolact one 25 mg tablet 02-07 00:00: 00 Yes [id number] FLUID RETENTION 0.5 tablet DAILY 0.5 tablet DAILY (route: oral) Med Classific ation: Cardiovas cular Therapy Agents tamsulosin 0.4 mg capsule 02-07 00:00: 00 02-21 23:59 :00 No [id number] URINARY HEALTH 1 capsule DAILY 1 capsule DAILY (route: oral) Med Classific ation: Genitouri nary Therapy acetaminoph en 325 mg tablet 2024-05 00:00: 00 Yes [id number] PAIN 2 tablet 2 TIMES DAILY 2 tablet 2 TIMES DAILY (route: oral) Med Classific ation: Analgesic , Anti-infl ammatory or Antipyret ic aspirin 81 mg tablet 2024-05 00:00: 00 Yes [id number] ANTICOAGULA NT 1 tablet DAILY 1 tablet DAILY (route: oral) Med Classific ation: Hematolog ical Agents ipratropium 0.5 mg-albutero l 3 mg (2.5 mg base)/3 mL nebulizatio n soln 2024-05 00:00: 00 Yes [id number] COPD 3 mL EVERY 6 HOURS 3 mL EVERY 6 HOURS (route: inhalation ) Med Classific ation: Respirato ry Therapy Agents Lanoxin 62.5 mcg (0.0625 mg) tablet 2024-05 00:00: 00 Yes [id number] CHF 1 tablet DAILY 1 tablet DAILY (route: oral) Med Classific ation: Cardiovas cular Therapy Agents Lasix 20 mg tablet 2024-05 00:00: 00 Yes [id number] CHF 1 tablet DAILY 1 tablet DAILY (route: oral) Med Classific ation: Cardiovas cular Therapy Agents Toprol XL 25 mg tablet,exte nded release 2024-05 00:00: 00 Yes [id number] BP 25 mg DAILY 25 mg DAILY [...] SYSTEM MANAGEMENT; RN TO ASSESS AND TEACH, PETROLEUM TRANSPORT DRIVER/AUTOMOTIVE COLLISION REPAIR INSTRUCTOR TO OBSERVE AND TEACH RELATED TO ALTERED RESPIRATORY STATUS TO MINIMIZE COMPLICATIONS AND REDUCE HOSPITALIZATION. [code = SN 1WK9 PT 1WK1 OT EFFECTIVE 02/10/2025K1 RESPIRATORY SYSTEM MANAGEMENT; RN TO ASSESS AND TEACH, PETROLEUM TRANSPORT DRIVER/AUTOMOTIVE COLLISION REPAIR INSTRUCTOR TO OBSERVE AND TEACH RELATED TO ALTERED RESPIRATORY STATUS TO MINIMIZE COMPLICATIONS AND REDUCE HOSPITALIZATION.] Future Scheduled Test TRACHEOSTO MY CARE MANAGEMENT; RN/PETROLEUM TRANSPORT DRIVER/AUTOMOTIVE COLLISION REPAIR INSTRUCTOR TO INSTRUCT PATIENT/CAREGIVER ON CARE AND MANAGEMENT OF TRACHEOSTOMY. RN/ PETROLEUM TRANSPORT DRIVER/AUTOMOTIVE COLLISION REPAIR INSTRUCTOR TO PROVIDE SKILLED TEACHING ON TRACH COLLAR SUCTIONING PRN WITH 14 FR SUCTION CATHETER PER PATIENT TRACH CARE WITH INNER CANNULA: REMOVE INNER CANNULA, CLEANSE WITH NORMAL SALINE AND OR STERILE WATER AND REINSERT NON-DISPOSABLE CANNULA SIZE OF INNER CANNULA 5 BROOKS [code = TRACHEOSTOMY CARE MANAGEMENT; RN/PETROLEUM TRANSPORT DRIVER/AUTOMOTIVE COLLISION REPAIR INSTRUCTOR TO INSTRUCT PATIENT/CAREGIVER ON CARE AND MANAGEMENT OF TRACHEOSTOMY. RN/ PETROLEUM TRANSPORT DRIVER/AUTOMOTIVE COLLISION REPAIR INSTRUCTOR TO PROVIDE SKILLED TEACHING ON TRACH COLLAR SUCTIONING PRN WITH 14 FR SUCTION CATHETER PER PATIENT TRACH CARE WITH INNER CANNULA: REMOVE INNER CANNULA, CLEANSE WITH NORMAL SALINE AND OR STERILE WATER AND REINSERT NON-DISPOSABLE CANNULA SIZE OF INNER CANNULA 5 BROOKS] Future Scheduled Test FALL REDUC TION MANAGEMENT; RN TO ASSESS AND OBSERVE, PETROLEUM TRANSPORT DRIVER/AUTOMOTIVE COLLISION REPAIR INSTRUCTOR TO OBSERVE FALL RISK FACTORS AND EDUCATE PATIENT/CAREGIVER ON STRATEGIES TO MINIMIZE THE RISK OF FALLING. [code = FALL REDUCTION MANAGEMENT; RN TO ASSESS AND OBSERVE, PETROLEUM TRANSPORT DRIVER/AUTOMOTIVE COLLISION REPAIR INSTRUCTOR TO OBSERVE FALL RISK FACTORS AND EDUCATE PATIENT/CAREGIVER ON STRATEGIES TO MINIMIZE THE RISK OF FALLING.] Future Scheduled Test ANEMIA MAN AGEMENT; RN TO ASSESS AND TEACH, AUTOMOTIVE COLLISION REPAIR INSTRUCTOR/PETROLEUM TRANSPORT DRIVER TO OBSERVE AND TEACH AND PROVIDE EDUCATION ON ANEMIA. [code = ANEMIA MANAGEMENT; RN TO ASSESS AND TEACH, AUTOMOTIVE COLLISION REPAIR INSTRUCTOR/PETROLEUM TRANSPORT DRIVER TO OBSERVE AND TEACH AND PROVIDE EDUCATION ON ANEMIA.] Future Scheduled Test RN TO OBSE RVE, ASSESS, EVALUATE, AND DEVELOP AN INDIVIDUALIZED PLAN OF CARE. AGENCY MAY ACCEPT ORDERS FROM CONSULTING PHYSICIANS RN TO OBSERVE AND ASSESS, PETROLEUM TRANSPORT DRIVER/AUTOMOTIVE COLLISION REPAIR INSTRUCTOR TO OBSERVE FOR RISK FOR FALLS AND INSTRUCT IN FALL PREVENTION, HOME SAFETY, MEDICATION MANAGEMENT, INFECTION PREVENTION, AND NUTRITION MANAGEMENT. RN/PETROLEUM TRANSPORT DRIVER/AUTOMOTIVE COLLISION REPAIR INSTRUCTOR NURSE MAY PERFORM O2 SATURATION LEVEL ON ADMISSION AND PRN FOR RN TO ASSESS/PETROLEUM TRANSPORT DRIVER TO OBSERVE PATIENT, WITH NOTIFICATION TO THE PHYSICIAN IF SATURATION IS 90% IN THE ABSENCE OF MORE SPECIFIC PARAMETERS FROM THE PHYSICIAN. AGENCY MAY PERFORM A RESUMPTION OF CARE VISIT FOLLOWING ANY HOSPITAL ADMISSION. RN/PETROLEUM TRANSPORT DRIVER/AUTOMOTIVE COLLISION REPAIR INSTRUCTOR TO MONITOR CO-MORBID CONDITIONS LISTED ON THE PLAN OF CARE AND ANY NEW CONDITIONS THAT PRESENT THEMSELVES DURING THIS EPISODE TO IDENTIFY CHANGES AND INTERVENE TO MINIMIZE COMPLICATIONS. [code = RN TO OBSERVE, ASSESS, EVALUATE, AND DEVELOP AN INDIVIDUALIZED PLAN OF CARE. AGENCY MAY ACCEPT ORDERS FROM CONSULTING PHYSICIANS RN TO OBSERVE AND ASSESS, PETROLEUM TRANSPORT DRIVER/AUTOMOTIVE COLLISION REPAIR INSTRUCTOR TO OBSERVE FOR RISK FOR FALLS AND INSTRUCT IN FALL PREVENTION, HOME SAFETY, MEDICATION MANAGEMENT, INFECTION PREVENTION, AND NUTRITION MANAGEMENT. RN/PETROLEUM TRANSPORT DRIVER/AUTOMOTIVE COLLISION REPAIR INSTRUCTOR NURSE MAY PERFORM O2 SATURATION LEVEL ON ADMISSION AND PRN FOR RN TO ASSESS/PETROLEUM TRANSPORT DRIVER TO OBSERVE PATIENT, WITH NOTIFICATION TO THE PHYSICIAN IF SATURATION IS 90% IN THE ABSENCE OF MORE SPECIFIC PARAMETERS FROM THE PHYSICIAN. AGENCY MAY PERFORM A RESUMPTION OF CARE VISIT FOLLOWING ANY HOSPITAL ADMISSION. RN/PETROLEUM TRANSPORT DRIVER/AUTOMOTIVE COLLISION REPAIR INSTRUCTOR TO MONITOR CO-MORBID CONDITIONS LISTED ON THE PLAN OF CARE AND ANY NEW CONDITIONS THAT PRESENT THEMSELVES DURING THIS EPISODE TO IDENTIFY CHANGES AND INTERVENE TO MINIMIZE COMPLICATIONS.] Future Scheduled Test PAIN MANAG EMENT; RN TO ASSESS AND TEACH, AUTOMOTIVE COLLISION REPAIR INSTRUCTOR/PETROLEUM TRANSPORT DRIVER TO OBSERVE AND TEACH AND PROVIDE EDUCATION ON PAIN MANAGEMENT TECHNIQUES. [code = PAIN MANAGEMENT; RN TO ASSESS AND TEACH, AUTOMOTIVE COLLISION REPAIR INSTRUCTOR/PETROLEUM TRANSPORT DRIVER TO OBSERVE AND TEACH AND PROVIDE EDUCATION ON PAIN MANAGEMENT TECHNIQUES.] Future Scheduled Test RISK FOR H OSPITALIZATION; RN TO ASSESS/TEACH, AUTOMOTIVE COLLISION REPAIR INSTRUCTOR/PETROLEUM TRANSPORT DRIVER TO OBSERVE/TEACH PATIENT/CAREGIVER ON RISK FOR HOSPITALIZATION/EMERGENCY ROOM VISITS, TEACH SIGNS AND SYMPTOMS THAT PUT PATIENT AT RISK, WHEN TO NOTIFY NURSE/PHYSICIAN OF COMPLICATIONS/DECLINE, AND WHEN TO CALL 911. [code = RISK FOR HOSPITALIZATION; RN TO ASSESS/TEACH, AUTOMOTIVE COLLISION REPAIR INSTRUCTOR/PETROLEUM TRANSPORT DRIVER TO OBSERVE/TEACH PATIENT/CAREGIVER ON RISK FOR HOSPITALIZATION/EMERGENCY ROOM VISITS, TEACH SIGNS AND SYMPTOMS THAT PUT PATIENT AT RISK, WHEN TO NOTIFY NURSE/PHYSICIAN OF COMPLICATIONS/DECLINE, AND WHEN TO CALL 911.] Future Scheduled Test CARDIOVASC ULAR SYSTEM; RN TO ASSESS/TEACH, PETROLEUM TRANSPORT DRIVER/AUTOMOTIVE COLLISION REPAIR INSTRUCTOR TO OBSERVE/TEACH RELATED TO ALTERED CARDIOVASCULAR STATUS TO MINIMIZE COMPLICATIONS AND REDUCE HOSPITALIZATION. [code = CARDIOVASCULAR SYSTEM; RN TO ASSESS/TEACH, PETROLEUM TRANSPORT DRIVER/AUTOMOTIVE COLLISION REPAIR INSTRUCTOR TO OBSERVE/TEACH RELATED TO ALTERED CARDIOVASCULAR STATUS TO MINIMIZE COMPLICATIONS AND REDUCE HOSPITALIZATION.] Future Scheduled Test HYPERTENSI ON MANAGEMENT; RN TO ASSESS AND TEACH, PETROLEUM TRANSPORT DRIVER/AUTOMOTIVE COLLISION REPAIR INSTRUCTOR TO OBSERVE AND TEACH WARNING SIGNS AND SYMPTOMS TO AVOID HOSPITALIZATION. [code = HYPERTENSION MANAGEMENT; RN TO ASSESS AND TEACH, PETROLEUM TRANSPORT DRIVER/AUTOMOTIVE COLLISION REPAIR INSTRUCTOR TO OBSERVE AND TEACH WARNING SIGNS AND SYMPTOMS TO AVOID HOSPITALIZATION.] Future Scheduled Test HEART FAIL URE MONITORING RN/AUTOMOTIVE COLLISION REPAIR INSTRUCTOR/PETROLEUM TRANSPORT DRIVER TO MONITOR PATIENT FOR SIGNS AND SYMPTOMS OF HEART FAILURE EXACERBATION, MONITOR FOR ADHERENCE WITH MEDICATION AND HEART FAILURE MANAGEMENT REGIMEN. [code = HEART FAILURE MONITORING RN/AUTOMOTIVE COLLISION REPAIR INSTRUCTOR/PETROLEUM TRANSPORT DRIVER TO MONITOR PATIENT FOR SIGNS AND SYMPTOMS OF HEART FAILURE EXACERBATION, MONITOR FOR ADHERENCE WITH MEDICATION AND HEART FAILURE MANAGEMENT REGIMEN.] Future Scheduled Test DIABETES M ONITORING RN/AUTOMOTIVE COLLISION REPAIR INSTRUCTOR/PETROLEUM TRANSPORT DRIVER TO MONITOR BLOOD SUGAR LOG FOR BLOOD SUGAR READINGS THAT ARE BEING CHECKED BY PATIENT, CAREGIVER NEEDED FOR SIGNS AND SYMPTOMS OF HYPER/HYPOGLYCEMIA. PATIENT THERAPEUTIC BLOOD SUGAR PARAMETERS ARE 70 - 300. REPORT BLOOD SUGARS OUT OF RANGE TO PHYSICIAN. NURSE MAY PERFORM FINGER STICK BLOOD GLUCOSE NEEDED FOR SIGNS AND SYMPTOMS OF HYPO AND HYPERGLYCEMIA. RN/AUTOMOTIVE COLLISION REPAIR INSTRUCTOR/PETROLEUM TRANSPORT DRIVER TO MONITOR ADHERENCE OF PATIENT/CAREGIVER PERFORMING DIABETIC FOOT CARE AND MAY PERFORM DIABETIC FOOT CARE PRN. RN/AUTOMOTIVE COLLISION REPAIR INSTRUCTOR/PETROLEUM TRANSPORT DRIVER TO MONITOR FOR ADHERENCE TO DIABETIC SELF-CARE AND MANAGEMENT INCLUDING MEDICATIONS. [code = DIABETES MONITORING RN/AUTOMOTIVE COLLISION REPAIR INSTRUCTOR/PETROLEUM TRANSPORT DRIVER TO MONITOR BLOOD SUGAR LOG FOR BLOOD SUGAR READINGS THAT ARE BEING CHECKED BY PATIENT, CAREGIVER NEEDED FOR SIGNS AND SYMPTOMS OF HYPER/HYPOGLYCEMIA. PATIENT THERAPEUTIC BLOOD SUGAR PARAMETERS ARE 70 - 300. REPORT BLOOD SUGARS OUT OF RANGE TO PHYSICIAN. NURSE MAY PERFORM FINGER STICK BLOOD GLUCOSE NEEDED FOR SIGNS AND SYMPTOMS OF HYPO AND HYPERGLYCEMIA. RN/AUTOMOTIVE COLLISION REPAIR INSTRUCTOR/PETROLEUM TRANSPORT DRIVER TO MONITOR ADHERENCE OF PATIENT/CAREGIVER PERFORMING DIABETIC FOOT CARE AND MAY PERFORM DIABETIC FOOT CARE PRN. RN/AUTOMOTIVE COLLISION REPAIR INSTRUCTOR/PETROLEUM TRANSPORT DRIVER TO MONITOR FOR ADHERENCE TO DIABETIC SELF-CARE AND MANAGEMENT INCLUDING MEDICATIONS.] Future Scheduled Test HYPOTENSIO N MANAGEMENT; RN TO ASSESS AND TEACH/ PETROLEUM TRANSPORT DRIVER /AUTOMOTIVE COLLISION REPAIR INSTRUCTOR TO OBSERVE AND TEACH WARNING SIGNS AND SYMPTOMS TO AVOID HOSPITALIZATION. [code = HYPOTENSION MANAGEMENT; RN TO ASSESS AND TEACH/ PETROLEUM TRANSPORT DRIVER /AUTOMOTIVE COLLISION REPAIR INSTRUCTOR TO OBSERVE AND TEACH WARNING SIGNS AND SYMPTOMS TO AVOID HOSPITALIZATION.] Future Scheduled Test ARRHYTHMIA MANAGEMENT; RN TO ASSESS AND TEACH, PETROLEUM TRANSPORT DRIVER/AUTOMOTIVE COLLISION REPAIR INSTRUCTOR TO OBSERVE AND TEACH WARNING SIGNS AND SYMPTOMS TO AVOID HOSPITALIZATION. [code = ARRHYTHMIA MANAGEMENT; RN TO ASSESS AND TEACH, PETROLEUM TRANSPORT DRIVER/AUTOMOTIVE COLLISION REPAIR INSTRUCTOR TO OBSERVE AND TEACH WARNING SIGNS AND SYMPTOMS TO AVOID HOSPITALIZATION.] Future Scheduled Test MEDICATION MANAGEMENT; RN/PETROLEUM TRANSPORT DRIVER/AUTOMOTIVE COLLISION REPAIR INSTRUCTOR TO REVIEW MEDICATIONS FOR INTERACTIONS, EFFECTIVENESS OF DRUG THERAPY, AND SIGNS/SYMPTOMS OF ADVERSE REACTIONS. MAY INSTRUCT AND REINFORCE MEDICATION TEACHING RELATED TO THE USE OF MEDICATIONS, DOSAGE, FREQUENCY, PURPOSE, SIDE EFFECTS, AND TO REPORT COMPLICATIONS. [code = MEDICATION MANAGEMENT; RN/PETROLEUM TRANSPORT DRIVER/AUTOMOTIVE COLLISION REPAIR INSTRUCTOR TO REVIEW MEDICATIONS FOR INTERACTIONS, EFFECTIVENESS [...] EVAL UATE, OBSERVE / ASSESS, AND MONITOR, MATHEMATICS TEACHER TO OBSERVE AND MONITOR, PROVIDE SKILLED THERAPEUTIC INTERVENTION, ACTIVITY, EDUCATION, AND TRAINING TO ADDRESS GEN. WEAKNESS, POOR OVERALL ACTIVITY TOLERANCE, AND FUNCTIONAL LIMITATIONS IMPACTING SAFETY AND INDEPENDENCE. BED MOBILITY (PT/MATHEMATICS TEACHER) PT/MATHEMATICS TEACHER TO PROVIDE GAIT TRAINING FOR IMPROVED MOBILITY AND /OR TO NORMALIZE GAIT PATTERN THERAPEUTIC EXERCISES AND ESTABLISHING A HOME EXERCISE PROGRAM (PT/MATHEMATICS TEACHER) PT/MATHEMATICS TEACHER TO PROVIDE STAIR TRAINING PT / MATHEMATICS TEACHER TO MONITOR AND EDUCATE ON OXYGEN SATURATION DURING ADLS/IADLS, NOTIFY PHYSICIAN AND/OR THE RN CLINICAL MEAT WRAPPER FOR PHYSICIAN NOTIFICATION AND IF O2 SATS BELOW PHYSICIAN ORDERED PARAMETERS AFTER 10 MIN OF REST PT / MATHEMATICS TEACHER TO OBSERVE FOR EARLY SIGNS AND SYMPTOMS OF DEPRESSION OR DEPRESSION GETTING WORSE AND TO EDUCATE ON HOW TO FIND HELP. PT / MATHEMATICS TEACHER MAY EDUCATE ON PAIN MANAGEMENT CLINICALLY INDICATED, INCLUDING NON-PHARMACOLOGICAL PAIN REDUCTION TECHNIQUES PT / MATHEMATICS TEACHER TO MONITOR FOR HYPO/HYPERGLYCEMIA AND CONDUCT ROUTINE FOOT INSPECTIONS. RECORD PATIENT REPORTED BLOOD SUGAR LEVELS AND NOTIFY PHYSICIAN AND/OR THE RN CLINICAL MEAT WRAPPER FOR PHYSICIAN NOTIFICATION IF BLOOD SUGAR LEVELS ARE OUTSIDE ORDERED PARAMETERS. TEACH PATIENT/CAREGIVER ON DAILY FOOT INSPECTIONS PT / MATHEMATICS TEACHER TO INSTRUCT PATIENT/CAREGIVER ON RISK FOR HOSPITALIZATION/EMERGENCY ROOM VISITS, TEACH SIGNS AND SYMPTOMS THAT PUT PATIENT AT RISK, WHEN TO NOTIFY NURSE/PHYSICIAN OF COMPLICATIONS/DECLINE, AND WHEN TO CALL 911. PT/MATHEMATICS TEACHER TO EDUCATE ON ARTHRITIS SELF-MANAGEMENT PT / MATHEMATICS TEACHER TO EDUCATE ON HEART FAILURE SELF-MANAGEMENT PT / MATHEMATICS TEACHER TO EDUCATE ON HYPERTENSION SELF-MANAGEMENT PT TO ASSESS / MATHEMATICS TEACHER TO MONITOR CARDIO/RESPIRATORY SYSTEM; AND NOTIFY THE PHYSICIAN AND/OR THE RN CLINICAL MEAT WRAPPER FOR PHYSICIAN NOTIFICATION FOR EARLY SIGNS AND SYMPTOMS OF EXACERBATION OR DETERIORATION. PT / MATHEMATICS TEACHER TO EDUCATE ON ATRIAL FIBRILLATION SELF-MANAGEMENT. PT / MATHEMATICS TEACHER TO EDUCATE ON PNEUMONIA / ASPIRATION PNEUMONIA SELF-MANAGEMENT. PT/MATHEMATICS TEACHER TO IDENTIFY FALL RISK FACTORS; EDUCATE THE PATIENT/CAREGIVER ON WAYS TO REDUCE FALL RISK FACTORS AND ESTABLISH HOME EXERCISE PROGRAM TO MINIMIZE FALL RISK. MAY TEACH THE PATIENT FLOOR RECOVERY WHEN CLINICALLY APPROPRIATE [code = PT TO EVALUATE, OBSERVE / ASSESS, AND MONITOR, MATHEMATICS TEACHER TO OBSERVE AND MONITOR, PROVIDE SKILLED THERAPEUTIC INTERVENTION, ACTIVITY, EDUCATION, AND TRAINING TO ADDRESS GEN. WEAKNESS, POOR OVERALL ACTIVITY TOLERANCE, AND FUNCTIONAL LIMITATIONS IMPACTING SAFETY AND INDEPENDENCE. BED MOBILITY (PT/MATHEMATICS TEACHER) PT/MATHEMATICS TEACHER TO PROVIDE GAIT TRAINING FOR IMPROVED MOBILITY AND /OR TO NORMALIZE GAIT PATTERN THERAPEUTIC EXERCISES AND ESTABLISHING A HOME EXERCISE PROGRAM (PT/MATHEMATICS TEACHER) PT/MATHEMATICS TEACHER TO PROVIDE STAIR TRAINING PT / MATHEMATICS TEACHER TO MONITOR AND EDUCATE ON OXYGEN SATURATION DURING ADLS/IADLS, NOTIFY PHYSICIAN AND/OR THE RN CLINICAL MEAT WRAPPER FOR PHYSICIAN NOTIFICATION AND IF O2 SATS BELOW PHYSICIAN ORDERED PARAMETERS AFTER 10 MIN OF REST PT / MATHEMATICS TEACHER TO OBSERVE FOR EARLY SIGNS AND SYMPTOMS OF DEPRESSION OR DEPRESSION GETTING WORSE AND TO EDUCATE ON HOW TO FIND HELP. PT / MATHEMATICS TEACHER MAY EDUCATE ON PAIN MANAGEMENT CLINICALLY INDICATED, INCLUDING NON-PHARMACOLOGICAL PAIN REDUCTION TECHNIQUES PT / MATHEMATICS TEACHER TO MONITOR FOR HYPO/HYPERGLYCEMIA AND CONDUCT ROUTINE FOOT INSPECTIONS. RECORD PATIENT REPORTED BLOOD SUGAR LEVELS AND NOTIFY PHYSICIAN AND/OR THE RN CLINICAL MEAT WRAPPER FOR PHYSICIAN NOTIFICATION IF BLOOD SUGAR LEVELS ARE OUTSIDE ORDERED PARAMETERS. TEACH PATIENT/CAREGIVER ON DAILY FOOT INSPECTIONS PT / MATHEMATICS TEACHER TO INSTRUCT PATIENT/CAREGIVER ON RISK FOR HOSPITALIZATION/EMERGENCY ROOM VISITS, TEACH SIGNS AND SYMPTOMS THAT PUT PATIENT AT RISK, WHEN TO NOTIFY NURSE/PHYSICIAN OF COMPLICATIONS/DECLINE, AND WHEN TO CALL 911. PT/MATHEMATICS TEACHER TO EDUCATE ON ARTHRITIS SELF-MANAGEMENT PT / MATHEMATICS TEACHER TO EDUCATE ON HEART FAILURE SELF-MANAGEMENT PT / MATHEMATICS TEACHER TO EDUCATE ON HYPERTENSION SELF-MANAGEMENT PT TO ASSESS / MATHEMATICS TEACHER TO MONITOR CARDIO/RESPIRATORY SYSTEM; AND NOTIFY THE PHYSICIAN AND/OR THE RN CLINICAL MEAT WRAPPER FOR PHYSICIAN NOTIFICATION FOR EARLY SIGNS AND SYMPTOMS OF EXACERBATION OR DETERIORATION. PT / MATHEMATICS TEACHER TO EDUCATE ON ATRIAL FIBRILLATION SELF-MANAGEMENT. PT / MATHEMATICS TEACHER TO EDUCATE ON PNEUMONIA / ASPIRATION PNEUMONIA SELF-MANAGEMENT. PT/MATHEMATICS TEACHER TO IDENTIFY FALL RISK FACTORS; EDUCATE THE PATIENT/CAREGIVER ON WAYS TO REDUCE FALL RISK FACTORS AND ESTABLISH HOME EXERCISE PROGRAM TO MINIMIZE FALL RISK. MAY TEACH THE PATIENT FLOOR RECOVERY WHEN CLINICALLY APPROPRIATE] Future Scheduled Test AGENCY MAY PERFORM A RESUMPTION OF CARE VISIT FOLLOWING ANY HOSPITAL ADMISSION. OT TO EVALUATE, OBSERVE / ASSESS, AND MONITOR, STONE BREAKER TO OBSERVE AND MONITOR, PROVIDE SKILLED THERAPEUTIC INTERVENTION, ACTIVITY, EDUCATION, AND TRAINING TO ADDRESS SAFETY AND INDEPENDENCE OF ADLS AND FUNCTIONAL TRANSFERS IN HOME ENVIRONMENT. ACTIVITIES OF DAILY LIVING (OT/MARIANNE) THERAPEUTIC EXERCISE (OT/STONE BREAKER) ENERGY CONSERVATION/ACTIVITY DEMAND (OT/STONE BREAKER) OT/STONE BREAKER TO MONITOR AND EDUCATE ON OXYGEN SATURATION DURING ADLS/IADLS, NOTIFY PHYSICIAN AND/OR THE RN CLINICAL MEAT WRAPPER FOR PHYSICIAN NOTIFICATION AND IF O2 SATS BELOW 90% AFTER 10 MIN OF REST. OT / STONE BREAKER TO IDENTIFY FALL RISK FACTORS; EDUCATE THE PATIENT/CAREGIVER ON WAYS TO REDUCE FALL RISK FACTORS AND ESTABLISH HOME EXERCISE PROGRAM TO MINIMIZE FALL RISK. MAY TEACH THE PATIENT FLOOR RECOVERY WHEN CLINICALLY APPROPRIATE. OT/STONE BREAKER TO EDUCATE ON HYPERTENSION SELF-MANAGEMENT OT/MARIANNE TO EDUCATE ON ATRIAL FIBRILLATION SELF-MANAGEMENT. [code = AGENCY MAY PERFORM A RESUMPTION OF CARE VISIT FOLLOWING ANY HOSPITAL ADMISSION. OT TO EVALUATE, OBSERVE / ASSESS, AND MONITOR, STONE BREAKER TO OBSERVE AND MONITOR, PROVIDE SKILLED THERAPEUTIC INTERVENTION, ACTIVITY, EDUCATION, AND TRAINING TO ADDRESS SAFETY AND INDEPENDENCE OF ADLS AND FUNCTIONAL TRANSFERS IN HOME ENVIRONMENT. ACTIVITIES OF DAILY LIVING (OT/MARIANNE) THERAPEUTIC EXERCISE (OT/STONE BREAKER) ENERGY CONSERVATION/ACTIVITY DEMAND (OT/MARIANNE) OT/STONE BREAKER TO MONITOR AND EDUCATE ON OXYGEN SATURATION DURING ADLS/IADLS, NOTIFY PHYSICIAN AND/OR THE RN CLINICAL MEAT WRAPPER FOR PHYSICIAN NOTIFICATION AND IF O2 SATS BELOW 90% AFTER 10 MIN OF REST. OT / MARIANNE TO IDENTIFY FALL RISK FACTORS; EDUCATE THE PATIENT/CAREGIVER ON WAYS TO REDUCE FALL RISK FACTORS AND ESTABLISH HOME EXERCISE PROGRAM TO MINIMIZE FALL RISK. MAY TEACH THE PATIENT FLOOR RECOVERY WHEN CLINICALLY APPROPRIATE. OT/STONE BREAKER TO EDUCATE ON HYPERTENSION SELF-MANAGEMENT OT/MARIANNE TO [...] [facility] [id number] [phone]
== END 2025-03-29 20:43 | disposition short-term general hospital (02) ==
PROVIDERS: Student in an Organized Health Care Education/Training Program; Emergency Provider Family Medicine; PCP Family Medicine
DX: J95.03 Malfunction of tracheostomy stoma (principal); R06.02 Shortness of breath; I42.9 Cardiomyopathy, unspecified; I25.10 Atherosclerotic heart disease of native coronary artery without angina pectoris; I50.9 Heart failure, unspecified; I11.0 Hypertensive heart disease with heart failure; J44.9 Chronic obstructive pulmonary disease, unspecified; E27.40 Unspecified adrenocortical insufficiency; E78.00 Pure hypercholesterolemia, unspecified; K21.9 Gastro-esophageal reflux disease without esophagitis; Z85.528 Personal history of other malignant neoplasm of kidney; Z87.891 Personal history of nicotine dependence; Z90.5 Acquired absence of kidney; Z90.02 Acquired absence of larynx; Z79.82 Long term (current) use of aspirin; Z79.899 Other long term (current) drug therapy; Y83.3 Surgical operation with formation of external stoma as the cause of abnormal reaction of the patient, or of later complication, without mention of misadventure at the time of the procedure
CPT/HCPCS: 36415; 71046; 80053; 85025; 93005; 96374; 96376; 99285; J2405

== ENCOUNTER 2025-05-03 22:59 | Inpatient (IN) | payer MEDICARE, SELFPAY ==
[2025-05-03] VITALS (10 sets, daily range): BP systolic 120–129; BP diastolic 78–79; PULSE 109–117; RESP 27–38; TEMP 37.4; O2SAT 96–100
--- NOTE | ~2025-05-03 | CT_ITS ---
CTA CHEST CLINICAL HISTORY: [place] . COMPARISON: Chest x-ray hours prior CTA chest 02/03/2025 TECHNIQUE: Helical CTA performed from thoracic inlet to upper abdomen 100 mL IV contrast Coronal, sagittal reformats. Multiplanar MIPS CT images acquired with automatic exposure control for dose reduction DLP: 443 mGy-cm FINDINGS: Pulmonary arteries: No PE. Thoracic Aorta: No dissection or aneurysm. Heart/pericardium: Cardiomegaly. RV/LV ratio: Normal. Lungs/Pleura: Bibasilar dependent patchy foci airspace disease. Trace left pleural effusion. Tracheobronchial tree: Patent. Nodes: No enlarged nodes. Bones: No acute bony abnormality. Soft tissues: Unchanged anterior mediastinal postoperative scarring. Visualized upper abdomen: Right nephrectomy. Small hiatal hernia IMPRESSION: 1. No PE. 2. Bibasilar aspiration and/or airspace disease. Reviewed, dictated and finalized at location [facility]. [employer]
--- NOTE | ~2025-05-03 | XR_ITS ---
Examination: XR chest 1V portable Clinical History: SOB Comparison: 03/29/2025 Technique: Portable AP Findings: Tracheostomy. Cardiomegaly. Lungs clear. No acute bony abnormality. IMPRESSION: 1. No acute cardiopulmonary findings given portable technique. Reviewed, dictated and finalized at location R. [employer]
--- NOTE | ~2025-05-03 | XR_ITS ---
MODIFIED ESOPHAGRAM HISTORY: Aspiration pneumonia TECHNIQUE: Modified barium esophagram was performed on 05/06/2025. I administered fluoroscopy and performed the exam with speech pathologist. Patient was seated for lateral fluoroscopic imaging for ingestion of thin liquids, pudding, solids and quantified amounts, followed by thin liquids in uncontrolled amounts. This was recorded on tape. A single fluoroscopic spot image was also recorded. The DAP for this procedure was 0.758 Gycm2. The amount of fluoroscopy time used during this procedure was 1.0 minutes. FINDINGS: Incidentally noted is a tracheostomy tube in expected position. Oral stage: Adequate function. Pharyngeal stage: There is transient/flash laryngeal penetration without aspiration. There are small anterior endplate osteophytes at C4-C5. Cervical/esophageal stage: Adequate function. IMPRESSION: Mild pharyngeal dysphagia with flash/transient laryngeal penetration without aspiration. Please correlate with speech pathologist findings and specific feeding recommendations. Reviewed, dictated and finalized at location A. E [employer] LAT[employer] OPERATOR IMPRESSION: Mild pharyngeal dysphagia with flash/transient laryngeal penetratio n without aspiration. Please correlate with speech pathologist findings and sp ecific feeding recommendations.
--- NOTE | 2025-05-03 23:10 | ECG_ITS ---
Test Date: 2025-05-03 23:06:40 Measurements Intervals [place] Rate: 114 P: 0 NC: 0 QRS: 269 QRSD: 178 T: -1 QT: 371 QTc: 511 Interpretive Statements SINUS TACHYCARDIA WITH FREQUENT ATRIAL PREMATURE COMPLEXES RIGHT AXIS DEVIATION RIGHT BUNDLE BRANCH BLOCK POSSIBLE ANTERIOR MYOCARDIAL INFARCTION , OF INDETERMINATE AGE INFERIOR INFARCT, AGE INDETERMINATE BASELINE ARTIFACT- I, II, III, AVR, AVL, AVF ABNORMAL ECG Compared to ECG 03/29/2025 11:40:28 NO SIGNIFICANT CHANGE Electronically Signed On 05-04-2025 17:29:36 [facility] by Blanco Scott D.O.
[2025-05-04] VITALS (36 sets, daily range): BP systolic 108–120; BP diastolic 64–82; PULSE 76–100; RESP 16–33; TEMP 36.7–37.4; O2SAT 91–100; BMI 27.3
[2025-05-04 00:07] LABS: Hematocrit 32.0 % (42.0-52.0); Hemoglobin 10.4 g/dL (14.0-18.0); Immature Granulocyte Percent A 1.5 % (0-0.5); Lymphocytes Absolute Auto 0.44 K/mm3 (0.9-3.2); Mean Corpuscular HGB Conc 32.5 g/dl (32-36); Mean Corpuscular Hemoglobin 30.1 pg (26-34); Mean Corpuscular Volume 92.5 fl (80-100); Nucleated Red Blood Cells Absolute Auto 0.000 K/mm3 (0.0-0.012); Nucleated Red Blood Cells Perc 0.0 % (0.0-0.2); Platelet Count Result 142 k/mm3 (150-375); Red Blood Count 3.46 M/mm3 (4.6-6.20); White Blood Count 7.2 K/mm3 (4.5-10.0)
[2025-05-04 00:16] LABS: Alanine Aminotransferase 10 U/L (6-50); Albumin Level 3.4 g/dL (3.5-5.1); Alkaline Phosphatase 48 U/L (38-126); Anion Gap 7 mmol/L (4-12); Aspartate Amino Transferase 17 U/L (17-59); Bilirubin,Total 1.1 mg/dL (0.2-1.3); Blood Urea Nitrogen 19 mg/dL (9-20); Calcium 8.6 mg/dL (8.4-10.2); Carbon Dioxide 21 mmol/L (22-30); Chloride 104 mmol/L (98-107); Estimated CRCL calculation 46 ml/min; Estimated Glomerular Filt Rate 57; Glucose 107 mg/dL (65-110); Potassium 3.6 mmol/L (3.4-5.0); Sodium 132 mmol/L (137-145); Total Protein 6.2 g/dL (6.3-8.2)
[2025-05-04 00:34] LABS: NT Pro B Type Natriuretic Pept 952 pg/mL (19.9-100)
--- OUTSIDE RECORDS SUMMARY | 2025-05-04 00:38 | XMS_ITS | Encounter Summary ---
Author Organization [facility] Address [address] [place] [address] Phone Care Team Providers Care Surveyor'S Assistant Name Role Phone ParisaMykel DO Unavailable [phone] Yaya Elizondo MD Primary Care Provider Micheal Cabral MD Unavailable [phone] Yyaa Elizondo MD Primary Care Provider Jeferson Elena MD Primary Care Provider Artie Henderson MD Unavailable Ana M Renteria MD Unavailable Shiva Barrientos MD Unavailable Aileen Griffin NP Unavailable Parth Dalton MD Unavailable [phone] Richie Rodarte RN Unavailable [phone] Encounter Details Date Type Department Care Team (Late st Contact Info) Description 07/02/2022 Telephone [facility] Medicine Cardiology [address] [facility] 8th [place] [address] [place] [address] Artie Henderson MD [address] [facility] [address] [place] [address] Social History Tobacco Use Types Packs/Day Years Used Date Smoking Tobacco: Former Cigarettes 1 40 1 962 - 2001 Smokeless Tobacco: Never Social Connection and Isolation Panel Answer Date Recorded In a typical week, how many times do you talk on the phone with family, friends, or neighbors? Three times a week 07/03/19 How often do you get togethe r with friends or relatives? Three times a week 07/03/2022 How often do you attend chur ch or evangelical services? Never 07/03/2022 Do you belong to any clubs o r organizations such as scientology groups, unions, fraternal or athletic groups, or [...] slept in a intermediate (including now)? 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 auris Comment:This flag is [...] auris 01/05/2025 01/05/2025 01/19/2025 5:57 PM CDT COVID: Suspected 03/30/2025 03/30/2025 03/30/2025 1:53 PM AUTOMATIC PATTERN EDGER Ring Surveillance: C. auris 04/02/2025 04/02/2025 04/03/2025 8:36 AM AUTOMATIC PATTERN EDGER Ring Surveillance: C. 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 Please contact infection prevention for instructions on obtaining surveillance cultures. 04/08/2025 - First swab collected 04/08, negative. Will need another swab collected 04/14 or after. Miguel Torres 04/04/2025 04/04/2025 04/12/2025 10:43 AM AUTOMATIC PATTERN EDGER documented as of this encounter Care Teams Surveyor'S Assistant Relationship Specialty Start Date End Date Yaya Elizondo MD [address] [facility], [address] [place] [address] PCP - General Family Medicine 10/07/21 01/23/23 Yaya Elizondo MD [address] [facility] [address] [place] [address] PCP - General Family Medicine 01/24/23 02/16/23 Jeferson Elena MD [address] [place] [address] PCP - General Family Medicine 02/17/23 Mykel Mccauley DO [address] [facility], [address] [place] [address] Medical Oncologist/Hematologis t Hematology and Oncology 08/28/21 Micheal Cabral MD [address] [facility] [address] [place] [address] Consulting Physician General Surgery 08/11/22 Artie Henderson MD [address] [place] [address] Referring Physician Cardiology 02/17/23 Ana M Renteria MD [address] [facility] [address] [place] [address] Referring Physician Cardiology 11/21/23 [place] [address] [facility] [address] [place] [address] Consulting Physician Endocrinology Diabetes & Metabolism 11/21/23 [place] [address] [address] [facility] [address] [place] [address] Nurse Practitioner Endocrinology Diabetes & Metabolism 11/21/23 Parth Dalton MD [address] [place] [address] Surgeon Cardiothoracic Surgery 12/07/24 Richie Rodarte, FELICITA [address] [place] [address] [address] [place] [address] Chocolate Finisher 04/12/25 05/02/25 documented as of this encounter
--- OUTSIDE RECORDS SUMMARY | 2025-05-04 00:38 | XMS_ITS | Encounter Summary ---
Author Organization [facility] Healthcare Address [address] [place] [address] Care Team Providers Care Heel Coverer Machine Operator Name Role Phone Mykel Mccauley DO Unavailable Micheal Cabral MD Unavailable [phone] Jeferson Elena MD Primary Care Provider Artie Henderson MD Unavailable Ana M Renteria MD Unavailable Shiva Barrientos MD Unavailable Aileen Griffin NP Unavailable Parth Dalton MD Unavailable [phone] Richie Rodarte RN Unavailable [phone] Reason for Visit * Reason Onset Date Comments GUILLAUME Questions 04/10/2025 Encounter Details Date Type Department Care Team (Late st Contact Info) Description 04/10/[address] [facility] Medical Group [facility] [place] [address] [place] [address] Jeferson Elena MD [address] [place] [address] [address] [place] [address] GUILLAUME Questions Social History Tobacco Use Types Packs/Day Years Used Date Smoking Tobacco: Former Cigarettes 0.5 34.3 1 577 - 05/16/2001 Passive Smoke Exposure: Past Smokeless [...] often do you attend chur ch or voodoo services? Never 08/24/2022 Do you belong to any clubs o r organizations such as protestant groups, unions, fraternal or athletic groups, or [...] PHQ-2 Answer Date Recorded PHQ-2 Total Score 0 04/03/2025 PRAPARE - Transportation Answer Date Re corded [...] friends, or neighbors? Three times a week 04/12/2025 How often do you get togethe r with friends or relatives? Twice a week 04/12/2025 How often do you attend chur ch or voodoo services? Never 04/12/2025 Do you belong to any clubs o r organizations such as protestant groups, unions, fraternal or athletic groups, or school groups? No 04/12/2025 How often do you attend meet ings of the clubs or organizations you belong to? Never 04/12/2025 Are you , , di vorced, , never , or living with a partner? 04/12/2025 AUDIT-C Answer Date Recorded Frequency of Alcohol [...] medical care, and heating? Not very hard 04/12/2025 Hunger Vital Sign Answer Date Recorded Within the past 12 months, y ou worried that your food would run out before you got the money to buy more. Never true 04/12/20 25 Within the past 12 months, t he food you bought just didn't last and you didn't have money to get more. Never true 04/12/2025 PRAPARE - Transportation Answer Date Re corded In the past 12 months, has l ack of transportation kept you from medical appointments or from getting medications? No 03/17 In the past 12 months, has l ack of transportation kept you from meetings, work, or from getting things needed for daily living? No 04/12/2025 Housing Stability Vital Sign Answer Clinton e Recorded In the last 12 months, was t here a time when you were not able to pay the mortgage or rent on time? No 04/12/2025 In the past 12 months, how m any times have you moved where you were living? 0 04/12/2025 At any time in the past 12 m [facility], were you homeless or living in a chcf (including now)? No 04/12/2025 [facility] Utilities Answer Date Recorded In the past 12 months has th [employer] electric, gas, oil, or water company threatened to shut off services in your home? No 04/12/2025 Personal Safety Answer Date Recorded Have you ever been in or are you currently in a harmful physical or emotional relationship or is someone making you feel afraid or unsafe? 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 No Will patient be transferred to another inpatient facility (e.g. longterm, inpatient rehab, etc.)? No The patient was not discharged at the time of the call. Patient will need to be contacted after discharge to complete remaining questions. Date Admitted: 03/29 Tentative Discharge Date: 04/10 Facility Admitted To: [place] Date of GUILLAUME Appointment: 04/17 Additional Comments: will need to be asked guillaume questions Does message need to be routed? 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 Please contact infection prevention for instructions on obtaining surveillance cultures. 04/08/2025 - First swab collected 04/08, negative. Will need another swab collected 04/14 or after. Miguel Foster 04/04/2025 04/04/2025 04/12/2025 10:43 AM SAFETY RISK LEAD documented as of this encounter Care Teams Heel Coverer Machine Operator Relationship Specialty Start Date End Date Jeferson Elena MD [address] [place] [address] PCP - General Family Medicine 02/17/23 Mykel Mccauley DO [address] [facility], [address] [place] [address] Medical Oncologist/Hematologis t Hematology and Oncology 08/28/21 Micheal Cabral MD [address] [facility] [address] [place] [address] Consulting Physician General Surgery 08/11/22 Artie Henderson MD [address] [place], [place] [address] Referring Physician Cardiology 02/17/23 Ana M Renteria MD [address] [place] [address] Referring Physician Cardiology 11/21/23 [place] [address] [address] Consulting Physician Endocrinology Diabetes & Metabolism 11/21/23 [place] [address] [address] Nurse Practitioner Endocrinology Diabetes & Metabolism 11/21/23 Parth Dalton MD [address] [place] [address] Surgeon Cardiothoracic Surgery 12/07/24 Richie Rodarte RN [address] [place] [address] [address] [place] [address] Rubber Cutter 04/12/25 05/02/25 documented as of this encounter
--- OUTSIDE RECORDS SUMMARY | 2025-05-04 00:38 | XMS_ITS | Encounter Summary ---
Author Organization [facility] Healthcare Address [address] [place] [address] Care Team Providers Care Consulting Sme Name Role Phone Mykel Mccauley DO Unavailable Yaya Elizondo MD Primary Care Provider [phone] Micheal Cabral MD Unavailable [phone] Yaya Elizondo MD Primary Care Provider Jeferson Elena MD Primary Care Provider [phone] Artie Henderson MD Unavailable Ana M Renteria MD Unavailable Shiva Barrientos MD Unavailable Aileen Griffin NP Unavailable Parth Dalton MD Unavailable Richie Rodarte RN Unavailable Encounter Details Date Type Department Care Team (Late st Contact Info) Description 04/05/2022 Documentation [facility] Social Work [address] [place] [address] Alivia Pham MSW Social History Tobacco Use [...] often do you attend chur ch or temple services? Never 03/30/2022 Do you belong to any clubs o r organizations such as religious groups, unions, fraternal or athletic groups, or [...] place to sleep or slept in a longterm (including now)? 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 SW notified. Problem: Ensure acute medical needs are met and that patient has a safe discharge plan. Goal: Secure a facility that patient/family are agreeable with and ensure patient has continuum of care. Discharge Plan: [facility] SW was following for SDOH. Patient screened by [facility] for Medicaid application assistance. Discharge status TBD. FARRUKH [place] FORMING MACHINE SET UP OPERATOR documented in this encounter Plan of Treatment Not on file documented as of this encounter Visit Diagnoses Not on filedocumented in this encounter Additional Health Concerns Infection Onset Date Last Indicated Resolved Time COVID: Recovered Comment:Added based on recent COVID infection. 03/23/2022 03/23/2022 06/21/2022 3:[address] COVID: Suspected 07/01/2022 07/01/2022 07/01/2022 5:41 PM ROLL FORMING MACHINE SET UP OPERATOR COVID: Suspected 07/03/2022 07/03/2022 07/03/2022 1:37 PM ROLL FORMING MACHINE SET UP OPERATOR COVID: Suspected 07/10/2024 07/10/2024 07/10/2024 2:32 PM ROLL FORMING MACHINE SET UP OPERATOR Ring Surveillance: C. auris Comment:This flag [...] COVID: Suspected 03/30/2025 03/30/2025 03/30/2025 1:53 PM ROLL FORMING MACHINE SET UP OPERATOR Ring Surveillance: C. auris 04/02/2025 04/02/2025 04/03/2025 8:36 AM ROLL FORMING MACHINE SET UP OPERATOR Ring Surveillance: C. 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 Please contact infection prevention for instructions on obtaining surveillance cultures. 04/08/2025 - First swab collected 04/08, negative. Will need another swab collected 04/14 or after. Miguel Torres 04/04/2025 04/04/2025 04/12/2025 10:43 AM ROLL FORMING MACHINE SET UP OPERATOR documented as of this encounter Care Teams Consulting Sme Relationship Specialty Start Date End Date Yaya Elizondo MD [address] [facility] MEDICAL [address]COLOGY[address] [address] PCP - General Family Medicine 10/07/21 01/23/23 Yaya Elizondo MD [address] [facility] [address] [place] [address] PCP - General Family Medicine 01/24/23 02/16/23 Jeferson Elena MD [address] [facility] [address] [place] [address] PCP - General Family Medicine 02/17/23 [place] [address] [place] [address] MEDICAL ONCOLOGY, [address] [place] [address] Medical Oncologist/Hematologis t Hematology and Oncology 08/28/21 Micheal Cabral MD [address] [facility] [address] [place] [address] Consulting Physician General Surgery 08/11/22 Artie Henderson MD [address] [facility] [address] [place] [address] Referring Physician Cardiology 02/17/23 Ana M Renteria MD [address] [facility] [address] [place] [address] Referring Physician Cardiology 11/21/23 [place] [address] [facility] [address], [place] [address] Consulting Physician Endocrinology Diabetes & Metabolism 11/21/23 [place] [address] [address] Nurse Practitioner Endocrinology Diabetes & Metabolism 11/21/23 Parth Dalton MD [address] [place] [address] Surgeon Cardiothoracic Surgery 12/07/24 Richie Rodarte, FELICITA [address] [place] [address] [address] [place] [address] Hvac Estimator 04/12/25 05/02/25 documented as of this encounter
--- OUTSIDE RECORDS SUMMARY | 2025-05-04 00:39 | XMS_ITS ---
Author Organization [facility] Address [address] [place] [address] Care Team Providers Care Folder Seamer Name Role Phone Mykel Mccauley Unavailable Micheal Cabral MD Unavailable [phone] Jeferson Elena MD Primary Care Provider Artie Henderson MD Unavailable Ana M Renteria MD Unavailable Shiva Barrientos MD Unavailable Aileen Griffin NP Unavailable Parth Dalton MD Unavailable Active Problems Problem Noted Date Diagnosed Date Reduced mobility 04/09/2025 Tracheostomy care 03/30/2025 Assessment & Plan (04/10/2025 2:59 PM BLOWER FEEDER DYED RAW STOCK): Admitted with tracheostomy dislodgement and inability for reinsertion iso acute altered mental status developing at home. 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 S/p flexible nasopharyngeal scope with ENT with CDL dilation and insertion of Shiley. - Monitor for secretions - Duoneb q6h scheduled - humidified heated air for trach mask - DERMATOLOGY PHYSICIAN ASSISTANT following - follow-up with ENT on 05/02/25 Assessment & Plan (04/09/2025 3:24 PM BLOWER FEEDER DYED RAW STOCK): Admitted with tracheostomy dislodgement and inability for reinsertion iso acute altered mental status developing at home. 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 S/p flexible nasopharyngeal scope with ENT with CDL dilation and insertion of Shiley. - Monitor for secretions - Duoneb q6h scheduled - humidified heated air for trach mask - DERMATOLOGY PHYSICIAN ASSISTANT following, refused speech valve Assessment & Plan (04/08/2025 12:04 PM BLOWER FEEDER DYED RAW STOCK): Admitted with tracheostomy dislodgement and inability for reinsertion iso acute altered mental status developing at home. 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 S/p flexible nasopharyngeal scope with ENT with CDL dilation and insertion of Shiley. - Monitor for secretions - Duoneb q6h scheduled - humidified heated air for trach mask - DERMATOLOGY PHYSICIAN ASSISTANT following, refused speech valve Assessment & Plan (04/07/2025 10:32 AM BLOWER FEEDER DYED RAW STOCK): Admitted with tracheostomy dislodgement and inability for reinsertion iso acute altered mental status developing at home. 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 S/p flexible nasopharyngeal scope with ENT with CDL dilation and insertion of Shiley. - Monitor for secretions - Duoneb q6h scheduled - humidified heated air for trach mask - DERMATOLOGY PHYSICIAN ASSISTANT following, refused speech valve Assessment & Plan (04/06/2025 12:21 PM BLOWER FEEDER DYED RAW STOCK): Admitted with tracheostomy dislodgement and inability for reinsertion iso acute altered mental status developing at home. 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 S/p flexible nasopharyngeal scope with ENT with CDL dilation and insertion of Shiley. - Monitor for secretions - Duoneb q6h scheduled - humidified heated air for trach mask - DERMATOLOGY PHYSICIAN ASSISTANT following, refused speech valve Assessment & Plan (04/05/2025 1:09 PM BLOWER FEEDER DYED RAW STOCK): Admitted with tracheostomy dislodgement and inability for reinsertion iso acute altered mental status developing at home. 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 S/p flexible nasopharyngeal scope with ENT with CDL dilation and insertion of Shiley. - Monitor for secretions - Duoneb q6h scheduled - humidified heated air for trach mask - DERMATOLOGY PHYSICIAN ASSISTANT following Assessment & Plan (04/04/2025 2:19 PM BLOWER FEEDER DYED RAW STOCK): Admitted with tracheostomy dislodgement and inability for reinsertion iso acute altered mental status developing at home. 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 S/p flexible nasopharyngeal scope with ENT with CDL dilation and insertion of Shiley. - Monitor for secretions - Duoneb q6h scheduled - humidified heated air for trach mask Assessment & Plan (04/03/2025 7:55 AM BLOWER FEEDER DYED RAW STOCK): Admitted with tracheostomy dislodgement and inability for reinsertion iso acute altered mental status developing at home. 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 S/p flexible nasopharyngeal scope with ENT with CDL dilation and insertion of Shiley. - Monitor for secretions - Duoneb q6h scheduled - home health care for trach care Assessment & Plan (04/02/2025 12:21 PM BLOWER FEEDER DYED RAW STOCK): Admitted with tracheostomy dislodgement and inability for reinsertion iso acute altered mental status developing at home. 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 S/p flexible nasopharyngeal scope with ENT with CDL dilation and insertion of Shiley. - Monitor for secretions - Duoneb q6h scheduled - home health care for trach care Assessment & Plan (04/01/2025 10:20 PM BLOWER FEEDER DYED RAW STOCK): Admitted with tracheostomy dislodgement and inability for reinsertion iso acute altered mental status developing at home. 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 S/p flexible nasopharyngeal scope with ENT with CDL dilation and insertion of Shiley. - Monitor for secretions, sitter to avoid pulling off trach - HH for trach care Assessment & Plan (03/31/2025 12:04 PM BLOWER FEEDER DYED RAW STOCK): Admitted with tracheostomy dislodgement and inability for reinsertion iso acute altered mental status developing at home. 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 S/p flexible nasopharyngeal scope with ENT with CDL dilation and insertion of Shiley. - Monitor for secretions, mittens and sitter to avoid pulling off trach - HH for trach care Assessment & Plan (03/30/2025 1:16 PM BLOWER FEEDER DYED RAW STOCK): The patient has been trach dependent for 45 years with metallic trach in, at admitted with tracheostomy dislodgement and inability for reinsertion E/p flexible nasopharyngeal scope with ENT with CDL dilation and insertion of Shiley Monitor for secretions HH for trach care Mittens and sitter to avoid pulling off trach Altered mental status 03/11/2025 Cardiomyopathy 03/11/2025 Assessment & Plan (04/10/2025 2:59 PM BLOWER FEEDER DYED RAW STOCK): Euvolemic clinically. TTE (01/2025): EF 47% with global left ventricular hypokinesis. S/p CABG 12/2024. Appears euvolemic - continue home metoprolol and spironolactone Assessment & Plan (04/09/2025 3:24 PM BLOWER FEEDER DYED RAW STOCK): Euvolemic clinically. TTE (01/2025): EF 47% with global left ventricular hypokinesis. S/p CABG 12/2024. Appears euvolemic - continue home metoprolol and spironolactone Assessment & Plan (04/08/2025 12:04 PM BLOWER FEEDER DYED RAW STOCK): Euvolemic clinically. TTE (01/2025): EF 47% with global left ventricular hypokinesis. S/p CABG 12/2024. Appears euvolemic - continue home metoprolol and spironolactone Assessment & Plan (04/07/2025 10:32 AM BLOWER FEEDER DYED RAW STOCK): Euvolemic clinically. TTE (01/2025): EF 47% with global left ventricular hypokinesis. S/p CABG 12/2024. Appears euvolemic - continue home metoprolol and spironolactone Assessment & Plan (04/06/2025 12:21 PM BLOWER FEEDER DYED RAW STOCK): Euvolemic clinically. TTE (01/2025): EF 47% with global left ventricular hypokinesis. S/p CABG 12/2024. Appears euvolemic - continue home metoprolol and spironolactone Assessment & Plan (04/05/2025 1:09 PM BLOWER FEEDER DYED RAW STOCK): Euvolemic clinically. TTE (01/2025): EF 47% with global left ventricular hypokinesis. S/p CABG 12/2024. Appears euvolemic - continue home metoprolol and spironolactone Assessment & Plan (04/04/2025 2:19 PM BLOWER FEEDER DYED RAW STOCK): Euvolemic clinically. TTE (01/2025): EF 47% with global left ventricular hypokinesis. S/p CABG 12/2024. Appears euvolemic - continue home metoprolol and spironolactone Assessment & Plan (04/03/2025 7:55 AM BLOWER FEEDER DYED RAW STOCK): Euvolemic clinically. TTE (01/2025): EF 47% with global left ventricular hypokinesis. S/p CABG 12/2024. Appears euvolemic - continue home metoprolol and spironolactone Assessment & Plan (04/02/2025 12:21 PM BLOWER FEEDER DYED RAW STOCK): Euvolemic clinically. TTE (01/2025): EF 47% with global left ventricular hypokinesis. S/p CABG 12/2024. Appears euvolemic - continue home metoprolol and spironolactone Assessment & Plan (04/01/2025 9:07 AM BLOWER FEEDER DYED RAW STOCK): Euvolemic clinically. TTE (01/2025): EF 47% with global left ventricular hypokinesis. S/p CABG 12/2024. - continue home metoprolol and spironolactone Assessment & Plan (03/31/2025 12:04 PM BLOWER FEEDER DYED RAW STOCK): Euvolemic clinically. TTE (01/2025): EF 47% with global left ventricular hypokinesis. S/p CABG 12/2024. 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 Assessment & Plan (04/10/2025 2:59 PM BLOWER FEEDER DYED RAW STOCK): Presents with acute (2-5d) altered mental status, preceded by reported n/v/d, then trach dislodgement. At baseline per sister (RN), independent at home, driving, managing affairs, pristine apartment, meticulous with trach care, but then within past week in total disarray. Likely delirium given waxing waning status and/or induced by viral illness or hypoxemia, non-focal. Required chemical/physical sedation/restraints but has been stable and cooperative, no longer needing sitter. So far work up has been negative for organic cause, including brain MRI that was normal other than volume loss. - delirium precautions, make sure has BM, straight cath if retaining - PT/OT following, recommending SNF now for risk of injury at home - patient's family made case for rehab, although PT and PM&R performed eval and recommended SNF - by end of hospital course, patient agreed on HH PT/OT and will attempt cardiac rehab - referral outpatient to geriatrics Assessment & Plan (04/09/2025 3:24 PM BLOWER FEEDER DYED RAW STOCK): Presents with acute (2-5d) altered mental status, preceded by reported n/v/d, then trach dislodgement. At baseline per sister (RN), independent at home, driving, managing affairs, pristine apartment, meticulous with trach care, but then within past week in total disarray. Likely delirium given waxing waning status and/or induced by viral illness or hypoxemia, non-focal. Required chemical/physical sedation/restraints but has been stable and cooperative, no longer needing sitter. So far work up has been negative for organic cause, including brain MRI that was normal other than volume loss. - delirium precautions, make sure has BM, straight cath if retaining - PT/OT following, recommending SNF now for risk of injury at home - patient and family made case for rehab as more appropriate - consult PM&R for additional eval of rehabilitation needs; plan to discharge pending rehab eval and consensus decision Assessment & Plan (04/08/2025 12:04 PM BLOWER FEEDER DYED RAW STOCK): Presents with acute (2-5d) altered mental status, preceded by reported n/v/d, then trach dislodgement. At baseline per sister (RN), independent at home, driving, managing affairs, pristine apartment, meticulous with trach care, but then within past week in total disarray. Likely delirium given waxing waning status and/or induced by viral illness or hypoxemia, non-focal. Required chemical/physical sedation/restraints but has been stable and cooperative, no longer needing sitter. So far work up has been negative for organic cause, including brain MRI that was normal other than volume loss. - delirium precautions, make sure has BM, straight cath if retaining - PT/OT following, recommending SNF now. 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 Insomnia 01/05/2025 Assessment & Plan (01/05/2025 3:19 AM CDT): Receiving Lunesta Dysphagia 01/05/2025 Assessment & Plan (01/19/2025 8:49 AM CDT): DERMATOLOGY PHYSICIAN ASSISTANT saw patient on 01/09 at bedside 01/10 [...] revealed mild tracheomalacia - 01/17 transition to [facility] - ENT to sign off - Follow up with ENT in 6-8 weeks to establish care for tracheostomy (schedulers will reach out) GERD (gastroesophageal reflux disease) Assessment & Plan (04/19/2025 12:45 PM BLOWER FEEDER DYED RAW STOCK): Re-start patient's Pantoprazole, fell off medication list in February and pt in need of refill. Assessment & Plan (12/30/2024 7:37 PM CDT): [...] to daily dosing Liver cell carcinoma 12/07/2024 CAD (coronary artery disease) 12/03/2024 Assessment & Plan (04/10/2025 2:59 PM BLOWER FEEDER DYED RAW STOCK): S/p CABG x 2 (PATEL-LAD, SVG-PDA), MAZE and ALEX clip in 12/2024 for 3 weeks, then to [facility]. No chest pain this admission. - continue home ASA, atorvastatin, zetia, and metoprolol - TTE obtained during admission on 04/08 showed LVEF 40% with repeat 04/09 TTE limited showing LVEF 54% with mild RV hypokinesis. - follow-up with cardiology on 05/30/25 and 11/19/25 Assessment & Plan (04/09/2025 3:24 PM BLOWER FEEDER DYED RAW STOCK): S/p CABG x 2 (PATEL-LAD, SVG-PDA), MAZE and ALEX clip in 12/2024 for 3 weeks, then to [facility]. No chest pain this admission. - continue home ASA, atorvastatin, zetia, and metoprolol - TTE on 04/08 with LVEF 40%. TTE limited on 04/09 with EF 54%. Assessment & Plan (04/08/2025 12:04 PM BLOWER FEEDER DYED RAW STOCK): S/p CABG x 2 (PATEL-LAD, SVG-PDA), MAZE and ALEX clip in 12/2024 for 3 weeks, then to [facility]. No chest pain this admission. - continue home ASA, atorvastatin, zetia, and metoprolol - TTE ordered given he was due for one outpatient at this time for CABG follow up. Assessment & Plan (04/07/2025 10:32 AM BLOWER FEEDER DYED RAW STOCK): S/p CABG x 2 (PATEL-LAD, SVG-PDA), MAZE and ALEX clip in 12/2024 for 3 weeks, then to [facility]. No chest pain this admission. - continue home ASA, atorvastatin, zetia, and metoprolol Assessment & Plan (04/06/2025 12:21 PM BLOWER FEEDER DYED RAW STOCK): S/p CABG x 2 (PATEL-LAD, SVG-PDA), MAZE and ALEX clip in 12/2024 for 3 weeks, then to [facility]. No chest pain this admission. - continue home ASA, atorvastatin, zetia, and metoprolol Assessment & Plan (04/05/2025 1:09 PM BLOWER FEEDER DYED RAW STOCK): S/p CABG x 2 (PATEL-LAD, SVG-PDA), MAZE and ALEX clip in 12/2024 for 3 weeks, then to [facility]. No chest pain this admission. - continue home ASA, atorvastatin, zetia, and metoprolol Assessment & Plan (04/04/2025 2:19 PM BLOWER FEEDER DYED RAW STOCK): S/p CABG x 2 (PATEL-LAD, SVG-PDA), MAZE and ALEX clip in 12/2024 for 3 weeks, then to [facility]. No chest pain this admission. - continue home ASA, atorvastatin, zetia, and metoprolol Assessment & Plan (04/03/2025 7:55 AM BLOWER FEEDER DYED RAW STOCK): S/p CABG x 2 (PATEL-LAD, SVG-PDA), MAZE and ALEX clip in 12/2024 for 3 weeks, then to [facility]. No chest pain this admission. - continue home ASA, atorvastatin, zetia, and metoprolol Assessment & Plan (04/02/2025 11:56 AM BLOWER FEEDER DYED RAW STOCK): S/p CABG x 2 (PATEL-LAD, SVG-PDA), MAZE and ALEX clip in 12/2024 for 3 weeks, then to [facility]. No chest pain this admission. - continue home ASA, atorvastatin, zetia, and metoprolol Assessment & Plan (04/01/2025 9:07 AM BLOWER FEEDER DYED RAW STOCK): S/p CABG x 2 (PATEL-LAD, SVG-PDA), MAZE and ALEX clip in 12/2024 for 3 weeks, then to [facility]. No chest pain this admission. - continue home ASA, atorvastatin, zetia, and metoprolol Assessment & Plan (03/31/2025 12:04 PM BLOWER FEEDER DYED RAW STOCK): S/p CABG x 2 (PATEL-LAD, SVG-PDA), MAZE and ALEX clip in 12/2024 for 3 weeks, then to [facility]. No chest pain this admission. - continue home ASA, atorvastatin, zetia, and metoprolol Assessment & Plan (03/30/2025 3:29 PM BLOWER FEEDER DYED RAW STOCK): S/p CABG x 2 (PATEL-LAD, SVG-PDA), MAZE and ALEX clip in December 2024. No chest pain this admit Ct ASA, statin and BB Assessment & Plan (01/17/2025 11:41 AM CDT): 12/28: s/p CABG x 2 PATEL-LAD, SVG-PDA) Post procedure YONY: EF approx 40%, mild MR, AI. CI 2.5 w chest closed -ASA/statin/zetia/spirolactone daily -DOCTOR NATUROPATHIC - off 01/04 9 ECHO 1. 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 This was mentioned with sister at bedside who feels patient is more dyspneic. Demonstrated with walking 04/09. Denies orthopnea. No LISSETH. Deconditioning and anemia may also be contributor. - TTE 04/08 with LVEF 40% down from 47% two months prior. Assessment & Plan (04/09/2025 3:24 PM BLOWER FEEDER DYED RAW STOCK): On 04/09, patient mentioned he would ambulate and do chores in small apartment and feel short of breath. This was mentioned with sister at bedside who feels patient is more dyspneic. Demonstrated with walking 04/09. Denies orthopnea. No LISSETH. Deconditioning and anemia may also be contributor. - TTE 04/08 with LVEF 40% down from 47% two months prior. Assessment & Plan (03/25/2025 3:28 PM BLOWER FEEDER DYED RAW STOCK): This has not improved since his CABG [...] 03/19/2024 Assessment & Plan (03/19/2024 11:05 AM BLOWER FEEDER DYED RAW STOCK): Patient is interested in the steroid injections. Will refer him back to Orthopedics to discuss steroid injections for both of his knees Hand arthritis 03/19/2024 Assessment & Plan (03/19/2024 11:06 AM BLOWER FEEDER DYED RAW STOCK): Will obtain new x-rays today. Referral to ortho hand in [place]. I told him alternatively there would be Dr. Du at [facility]. Encounter for Medicare annual wellness exam 12/2023 Assessment & Plan (11/21/2023 11:16 AM CDT): A(n) yearly Medicare Annual Wellness Visit has been performed today. Holger Sheehan is not up to date on screening [...] establish care has been performed today. Holger Sheehan is up to date on screening tests. [...] 08/23/2022 Adrenal insufficiency 08/17/2022 Assessment & Plan (04/10/2025 2:59 PM BLOWER FEEDER DYED RAW STOCK): - continue home pred 5mg daily Assessment & Plan (04/09/2025 3:24 PM BLOWER FEEDER DYED RAW STOCK): - continue home pred 5mg daily Assessment & Plan (04/08/2025 12:04 PM BLOWER FEEDER DYED RAW STOCK): - continue home pred 5mg daily Assessment & Plan (04/07/2025 10:32 AM BLOWER FEEDER DYED RAW STOCK): - continue home pred 5mg daily Assessment & Plan (04/06/2025 12:21 PM BLOWER FEEDER DYED RAW STOCK): - continue home pred 5mg daily Assessment & Plan (04/05/2025 1:09 PM BLOWER FEEDER DYED RAW STOCK): - continue home pred 5mg daily Assessment & Plan (04/04/2025 2:19 PM BLOWER FEEDER DYED RAW STOCK): - continue home pred 5mg daily Assessment & Plan (04/03/2025 7:55 AM BLOWER FEEDER DYED RAW STOCK): - continue home pred 5mg daily Assessment & Plan (04/02/2025 12:21 PM BLOWER FEEDER DYED RAW STOCK): - continue home pred 5mg daily Assessment & Plan (12/30/2024 7:40 PM CDT): -Home prednisone 5 mg daily Assessment & Plan (07/13/2024 10:40 AM BLOWER FEEDER DYED RAW STOCK): Chronic problem. 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 In case of any extreme weakness, abdominal pain, diarrhea or dizziness, it is recommended for you to call an ambulance and proceed to the nearest emergency room. Assessment & Plan (07/05/2023 2:53 PM BLOWER FEEDER DYED RAW STOCK): Chronic problem. Currently taking prednisone 5mg twice [...] room. Assessment & Plan (05/19/2023 12:49 PM BLOWER FEEDER DYED RAW STOCK): Patient continuing his Prednisone and set to follow up with Endo in June. Assessment & Plan (11/18/2022 3:01 PM CDT): Chronic problem. Discussed tapering prednisone dose from 15mg total/day down to 5mg daily. Reserving 10-15mg for sick days. Will call if any difficulties with tapering. Reviewed red flags. Will check TSH, T3, T4 today. Verified that he uses mychart. Aware to check results/results letter in [employer]. Will contact by phone if needed. 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 In [...] renal cell carcinoma. I have recommended Mr. Sheehan to stay on 5 mg of prednisone as replacement dose. I also advised on increase the dose to 10 of 15 mg in situations of sick days. He also should receive stress dose of steroids prior and during his abdominal upcoming surgery , e.g 50 mg hydrocortisone every 8 hours. Decreased cortisol level 07/04/2022 Assessment & Plan (07/05/2022 7:58 PM BLOWER FEEDER DYED RAW STOCK): On 12/2021 started high dose steroid due [...] tapering. Assessment & Plan (07/04/2022 4:17 PM BLOWER FEEDER DYED RAW STOCK): On 12/2021 started high dose steroid due [...] Cardiology Assessment & Plan (05/19/2023 12:42 PM BLOWER FEEDER DYED RAW STOCK): Patient continues to follow with Cardiology. Continues [...] changes. Assessment & Plan (07/05/2022 8:13 PM BLOWER FEEDER DYED RAW STOCK): TTE 03/2022 with LV dilation with EF [...] 09/09/2022) Assessment & Plan (07/04/2022 4:23 PM BLOWER FEEDER DYED RAW STOCK): TTE 03/2022 with LV dilation with EF [...] cost Assessment & Plan (07/03/2022 5:05 PM BLOWER FEEDER DYED RAW STOCK): TTE 03/2022 with LV dilation with EF [...] cost Assessment & Plan (04/05/2022 4:32 PM BLOWER FEEDER DYED RAW STOCK): Heart Failure with Reduced Ejection Fraction: EF [...] currently Assessment & Plan (04/04/2022 3:23 PM BLOWER FEEDER DYED RAW STOCK): Heart Failure with Reduced Ejection Fraction: EF 25% (TTE 03/2022), profile A, NYHA II, - Diuretic: None currently - Beta Jihan: Metoprolol tartrate 37.5 mg BID, will consolidate to XL prior to D/C - BRENTON/ARB/ARNI: On Entresto at home, will resume as tolerated - Device: No device currently Failure to thrive in adult 03/25/2022 Assessment & Plan (04/05/2022 4:31 PM BLOWER FEEDER DYED RAW STOCK): - Patient presenting with decreased PO intake, noncompliance medications, reported wt loss - RD consult, currently on TF via DHT - Swallow evaluation to remove DHT and begin oral nutrition Assessment & Plan (04/04/2022 3:20 PM BLOWER FEEDER DYED RAW STOCK): - Patient presenting with decreased PO intake, noncompliance medications, reported wt loss - RD consult, currently on TF via DHT Falls 03/25/2022 Assessment & Plan (04/05/2022 4:31 PM BLOWER FEEDER DYED RAW STOCK): - Patient lives alone with reportedly intermittent falls at home; last prior to admission without reported head trauma - Head CT unremarkable - Fall precautions, empiric coverage for Wernicke per above Assessment & Plan (04/04/2022 3:20 PM BLOWER FEEDER DYED RAW STOCK): - Patient lives alone with reportedly intermittent falls at home; last prior to admission without reported head trauma - Head CT unremarkable - Fall precautions, empiric coverage for Wernicke per above - PT/OT High risk medication use 03/25/2022 Atrial fibrillation 12/01/2021 Overview (12/01/2021): Added automatically from request for surgery [id number] Assessment &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
--- OUTSIDE RECORDS SUMMARY | 2025-05-04 00:39 | XMS_ITS | Encounter Summary ---
Author Organization [facility] Address [address] [place] [address] Phone Care Team Providers Care Painter Sign Maintenance Name Role Phone Mykel Mccauley DO Unavailable [phone] Yaya Elizondo MD Primary Care Provider Micheal Cabral MD Unavailable [phone] Yaya Elizondo MD Primary Care Provider Jeferson Elena MD Primary Care Provider Artie Henderson MD Unavailable Ana M Renteria MD Unavailable [phone] Shiva Barrientos MD Unavailable Aileen Griffin NP Unavailable Parth Dalton MD Unavailable [phone] Richie Rodarte RN Unavailable [phone] Encounter Details Date Type Department Care Team (Late st Contact Info) Description 03/08/2022 Documentation [facility] [address] [facility] [address] [place] [phone] Mykel Mccauley DO [address] [place] [id number] Social History Tobacco Use Types Packs/Day Years [...] often do you attend chur ch or mormonism services? Never 12/23/2021 Do you belong to [...] place to sleep or slept in a usp (including now)? 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 03/23/2022 03/23/2022 06/21/2022 3:[address] COVID: Suspected 07/01/2022 07/01/2022 07/01/2022 5:41 PM ABSTRACTOR COVID: Suspected 07/03/2022 07/03/2022 07/03/2022 1:37 PM ABSTRACTOR COVID: Suspected 07/10/2024 07/10/2024 07/10/2024 2:32 PM ABSTRACTOR Ring Surveillance: C. auris Comment:This flag is [...] COVID: Suspected 03/30/2025 03/30/2025 03/30/2025 1:53 PM ABSTRACTOR Ring Surveillance: C. auris 04/02/2025 04/02/2025 04/03/2025 8:36 AM ABSTRACTOR Ring Surveillance: C. 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 Please contact infection prevention for instructions on obtaining surveillance cultures. 04/08/2025 - First swab collected 04/08, negative. Will need another swab collected 04/14 or after. Miguel Torres 04/04/2025 04/04/2025 04/12/2025 10:43 AM ABSTRACTOR documented as of this encounter Care Teams Painter Sign Maintenance Relationship Specialty Start Date End Date Yaya Elizondo MD [address] [facility], [address] [address] PCP - General Family Medicine 10/07/21 01/23/23 Yaya Elizondo MD [address] [facility] [address] [place] [address] PCP - General Family Medicine 01/24/23 02/16/23 Jeferson Elena MD [address] [facility] [address] [place] [address] PCP - General Family Medicine 02/17/23 Mykel Mccauley DO [address] [facility], [address] [address] Medical Oncologist/Hematologis t Hematology and Oncology 08/28/21 Micheal Cabral MD [address] [facility] [address] [place] [address] Consulting Physician General Surgery 08/11/22 Artie Henderson MD [address] [place], [place] [id number] Referring Physician Cardiology 02/17/23 Ana M Renteria MD [address] [place], [place] [id number] Referring Physician Cardiology 11/21/23 [place] [address] [facility] [address] [place] [address] Consulting Physician Endocrinology Diabetes & Metabolism 11/21/23 [place] [address] [facility] [address] [place] [address] Nurse Practitioner Endocrinology Diabetes & Metabolism 11/21/23 Parth Dalton MD [id number] [place] [address] Surgeon Cardiothoracic Surgery 12/07/24 Richie Rodarte, FELICITA [address] [facility] [address] [place] [address] Warehouser 04/12/25 05/02/25 documented as of this encounter
--- OUTSIDE RECORDS SUMMARY | 2025-05-04 00:39 | XMS_ITS | Clinical Summary ---
Author Organization [facility] Address [address] [place] [address] Care Team Providers Care Ski Instructor Name Role Phone Mykel Mccauley DO Unavailable Micheal Cabral MD Unavailable [phone] Jeferson Elena MD Primary Care Provider Artie Henderson MD Unavailable [phone] Ana M Renteria MD Unavailable [phone] Shiva Barrientos MD Unavailable Aileen Griffin NP Unavailable Parth Dalton MD Unavailable [phone] Allergies Active Allergy Reactions Criticality Noted Date Comments Pembrolizumab Mental status changes High 03/10/2022 Encephalitis Medications escitalopram (LEXAPRO) 10 mg tablet Take 1 tablet (10 mg total) by mouth daily 5 Active predniSONE (DELTASONE) 5 mg tablet Take 1 tablet (5 mg) by mouth daily 5 Active aspirin 81 mg enteric coated tablet Take 1 tablet (81 mg total) by mouth daily 5 01/21/20 26 Active ipratropium-alb uteroL (DUO-NEB) 0.5-2.5 mg/3 mL nebulizer solution Take 3 mL by nebulization every 6 (six) hours 180 mL Active furosemide (LASIX) 20 mg tablet Take 1 tablet (20 mg total) by mouth daily as needed (swelling or fluid retention) 30 tablet 11 5 03/12/20 Active metoprolol XL (TOPROL-XL) 25 mg extended release tablet Take 1 tablet (25 mg total) by mouth daily 90 tablet 3 5 03/12/20 Active atorvastatin (LIPITOR) 80 mg tablet Take 1 tablet (80 mg total) by mouth nightly 90 tablet 3 5 03/12/20 Active ezetimibe (ZETIA) 10 mg tablet Take 1 tablet (10 mg total) by mouth nightly 90 tablet 3 5 03/12/20 Active spironolactone (ALDACTONE) 25 mg tablet Take 0.5 tablets (12.5 mg total) by mouth daily 45 tablet 3 03/12/20 Active albuterol HFA (PROVENTIL HFA,VENTOLIN HFA,PROAIR HFA) 90 mcg/actuation inhaler INHALE 2 PUFFS BY MOUTH EVERY 6 HOURS NEEDED FOR WHEEZING OR SHORTNESS OF BREATH Active pantoprazole DR (PROTONIX) 40 mg EC tabletIndicatio ns:Gastroesopha geal reflux disease without esophagitis Take 1 tablet (40 mg total) by mouth daily 100 tablet 1 5 Active Active Problems Problem Noted Date Diagnosed Date Reduced mobility 04/09/2025 Tracheostomy care 03/30/2025 Assessment & Plan (04/10/2025 2:59 PM DIRECTOR OF BILLING): Admitted with tracheostomy dislodgement and inability for reinsertion iso acute altered mental status developing at home. 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 S/p flexible nasopharyngeal scope with ENT with CDL dilation and insertion of Shiley. - Monitor for secretions - Duoneb q6h scheduled - humidified heated air for trach mask - SEARCH MANAGER following - follow-up with ENT on 05/02/25 Assessment & Plan (04/09/2025 3:24 PM DIRECTOR OF BILLING): Admitted with tracheostomy dislodgement and inability for reinsertion iso acute altered mental status developing at home. 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 S/p flexible nasopharyngeal scope with ENT with CDL dilation and insertion of Shiley. - Monitor for secretions - Duoneb q6h scheduled - humidified heated air for trach mask - SEARCH MANAGER following, refused speech valve Assessment & Plan (04/08/2025 12:04 PM DIRECTOR OF BILLING): Admitted with tracheostomy dislodgement and inability for reinsertion iso acute altered mental status developing at home. 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 S/p flexible nasopharyngeal scope with ENT with CDL dilation and insertion of Shiley. - Monitor for secretions - Duoneb q6h scheduled - humidified heated air for trach mask - SEARCH MANAGER following, refused speech valve Assessment & Plan (04/07/2025 10:32 AM DIRECTOR OF BILLING): Admitted with tracheostomy dislodgement and inability for reinsertion iso acute altered mental status developing at home. 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 S/p flexible nasopharyngeal scope with ENT with CDL dilation and insertion of Shiley. - Monitor for secretions - Duoneb q6h scheduled - humidified heated air for trach mask - SEARCH MANAGER following, refused speech valve Assessment & Plan (04/06/2025 12:21 PM DIRECTOR OF BILLING): Admitted with tracheostomy dislodgement and inability for reinsertion iso acute altered mental status developing at home. 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 S/p flexible nasopharyngeal scope with ENT with CDL dilation and insertion of Shiley. - Monitor for secretions - Duoneb q6h scheduled - humidified heated air for trach mask - SEARCH MANAGER following, refused speech valve Assessment & Plan (04/05/2025 1:09 PM DIRECTOR OF BILLING): Admitted with tracheostomy dislodgement and inability for reinsertion iso acute altered mental status developing at home. 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 S/p flexible nasopharyngeal scope with ENT with CDL dilation and insertion of Shiley. - Monitor for secretions - Duoneb q6h scheduled - humidified heated air for trach mask - SEARCH MANAGER following Assessment & Plan (04/04/2025 2:19 PM DIRECTOR OF BILLING): Admitted with tracheostomy dislodgement and inability for [...] mask Assessment & Plan (04/03/2025 7:55 AM DIRECTOR OF BILLING): Admitted with tracheostomy dislodgement and inability for [...] care Assessment & Plan (04/02/2025 12:21 PM DIRECTOR OF BILLING): Admitted with tracheostomy dislodgement and inability for [...] care Assessment & Plan (04/01/2025 10:20 PM DIRECTOR OF BILLING): Admitted with tracheostomy dislodgement and inability for [...] care Assessment & Plan (03/31/2025 12:04 PM DIRECTOR OF BILLING): Admitted with tracheostomy dislodgement and inability for [...] care Assessment & Plan (03/30/2025 1:16 PM DIRECTOR OF BILLING): The patient has been trach dependent for 45 years with metallic trach in, at admitted with tracheostomy dislodgement and inability for reinsertion E/p flexible nasopharyngeal scope with ENT with CDL dilation and insertion of Shiley Monitor for secretions HH for trach care Mittens and sitter to avoid pulling off trach Altered mental status 03/11/2025 Cardiomyopathy 03/11/2025 Assessment & Plan (04/10/2025 2:59 PM DIRECTOR OF BILLING): Euvolemic clinically. TTE (01/2025): EF 47% with global left ventricular hypokinesis. S/p CABG 12/2024. Appears euvolemic - continue home metoprolol and spironolactone Assessment & Plan (04/09/2025 3:24 PM DIRECTOR OF BILLING): Euvolemic clinically. TTE (01/2025): EF 47% with global left ventricular hypokinesis. S/p CABG 12/2024. Appears euvolemic - continue home metoprolol and spironolactone Assessment & Plan (04/08/2025 12:04 PM DIRECTOR OF BILLING): Euvolemic clinically. TTE (01/2025): EF 47% with global left ventricular hypokinesis. S/p CABG 12/2024. Appears euvolemic - continue home metoprolol and spironolactone Assessment & Plan (04/07/2025 10:32 AM DIRECTOR OF BILLING): Euvolemic clinically. TTE (01/2025): EF 47% with global left ventricular hypokinesis. S/p CABG 12/2024. Appears euvolemic - continue home metoprolol and spironolactone Assessment & Plan (04/06/2025 12:21 PM DIRECTOR OF BILLING): Euvolemic clinically. TTE (01/2025): EF 47% with global left ventricular hypokinesis. S/p CABG 12/2024. Appears euvolemic - continue home metoprolol and spironolactone Assessment & Plan (04/05/2025 1:09 PM DIRECTOR OF BILLING): Euvolemic clinically. TTE (01/2025): EF 47% with global left ventricular hypokinesis. S/p CABG 12/2024. Appears euvolemic - continue home metoprolol and spironolactone Assessment & Plan (04/04/2025 2:19 PM DIRECTOR OF BILLING): Euvolemic clinically. TTE (01/2025): EF 47% with global left ventricular hypokinesis. S/p CABG 12/2024. Appears euvolemic - continue home metoprolol and spironolactone Assessment & Plan (04/03/2025 7:55 AM DIRECTOR OF BILLING): Euvolemic clinically. TTE (01/2025): EF 47% with global left ventricular hypokinesis. S/p CABG 12/2024. Appears euvolemic - continue home metoprolol and spironolactone Assessment & Plan (04/02/2025 12:21 PM DIRECTOR OF BILLING): Euvolemic clinically. TTE (01/2025): EF 47% with global left ventricular hypokinesis. S/p CABG 12/2024. Appears euvolemic - continue home metoprolol and spironolactone Assessment & Plan (04/01/2025 9:07 AM DIRECTOR OF BILLING): Euvolemic clinically. TTE (01/2025): EF 47% with global left ventricular hypokinesis. S/p CABG 12/2024. - continue home metoprolol and spironolactone Assessment & Plan (03/31/2025 12:04 PM DIRECTOR OF BILLING): Euvolemic clinically. TTE (01/2025): EF 47% with global left ventricular hypokinesis. S/p CABG 12/2024. 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 Assessment & Plan (04/10/2025 2:59 PM DIRECTOR OF BILLING): Presents with acute (2-5d) altered mental status, [...] geriatrics Assessment & Plan (04/09/2025 3:24 PM DIRECTOR OF BILLING): Presents with acute (2-5d) altered mental status, [...] decision Assessment & Plan (04/08/2025 12:04 PM DIRECTOR OF BILLING): Presents with acute (2-5d) altered mental status, [...] Assessment & Plan (01/19/2025 8:49 AM CDT): SEARCH MANAGER saw patient on 01/09 at bedside [...] revealed mild tracheomalacia - 01/17 transition to [facility] - ENT to sign off - Follow up with ENT in 6-8 weeks to establish care for tracheostomy (schedulers will reach out) GERD (gastroesophageal reflux disease) Assessment & Plan (04/19/2025 12:45 PM DIRECTOR OF BILLING): Re-start patient's Pantoprazole, fell off medication list [...] 12/03/2024 Assessment & Plan (04/10/2025 2:59 PM DIRECTOR OF BILLING): S/p CABG x 2 (PATEL-LAD, SVG-PDA), MAZE and ALEX clip in 12/2024 for 3 weeks, then to [facility]. No chest pain this admission. - continue home ASA, atorvastatin, zetia, and metoprolol - TTE obtained during admission on 04/08 showed LVEF 40% with repeat 04/09 TTE limited showing LVEF 54% with mild RV hypokinesis. - follow-up with cardiology on 05/30/25 and 11/19/25 Assessment & Plan (04/09/2025 3:24 PM DIRECTOR OF BILLING): S/p CABG x 2 (PATEL-LAD, SVG-PDA), MAZE and ALEX clip in 12/2024 for 3 weeks, then to [facility]. No chest pain this admission. - continue home ASA, atorvastatin, zetia, and metoprolol - TTE on 04/08 with LVEF 40%. TTE limited on 04/09 with EF 54%. Assessment & Plan (04/08/2025 12:04 PM DIRECTOR OF BILLING): S/p CABG x 2 (PATEL-LAD, SVG-PDA), MAZE and ALEX clip in 12/2024 for 3 weeks, then to [facility]. No chest pain this admission. - continue home ASA, atorvastatin, zetia, and metoprolol - TTE ordered given he was due for one outpatient at this time for CABG follow up. Assessment & Plan (04/07/2025 10:32 AM DIRECTOR OF BILLING): S/p CABG x 2 (PATEL-LAD, SVG-PDA), MAZE and ALEX clip in 12/2024 for 3 weeks, then to [facility]. No chest pain this admission. - continue home ASA, atorvastatin, zetia, and metoprolol Assessment & Plan (04/06/2025 12:21 PM DIRECTOR OF BILLING): S/p CABG x 2 (PATEL-LAD, SVG-PDA), MAZE and ALEX clip in 12/2024 for 3 weeks, then to [facility]. No chest pain this admission. - continue home ASA, atorvastatin, zetia, and metoprolol Assessment & Plan (04/05/2025 1:09 PM DIRECTOR OF BILLING): S/p CABG x 2 (PATEL-LAD, SVG-PDA), MAZE and ALEX clip in 12/2024 for 3 weeks, then to [facility]. No chest pain this admission. - continue home ASA, atorvastatin, zetia, and metoprolol Assessment & Plan (04/04/2025 2:19 PM DIRECTOR OF BILLING): S/p CABG x 2 (PATEL-LAD, SVG-PDA), MAZE and ALEX clip in 12/2024 for 3 weeks, then to [facility]. No chest pain this admission. - continue home ASA, atorvastatin, zetia, and metoprolol Assessment & Plan (04/03/2025 7:55 AM DIRECTOR OF BILLING): S/p CABG x 2 (PATEL-LAD, SVG-PDA), MAZE and ALEX clip in 12/2024 for 3 weeks, then to [facility]. No chest pain this admission. - continue home ASA, atorvastatin, zetia, and metoprolol Assessment & Plan (04/02/2025 11:56 AM DIRECTOR OF BILLING): S/p CABG x 2 (PATEL-LAD, SVG-PDA), MAZE and ALEX clip in 12/2024 for 3 weeks, then to [facility]. No chest pain this admission. - continue home ASA, atorvastatin, zetia, and metoprolol Assessment & Plan (04/01/2025 9:07 AM DIRECTOR OF BILLING): S/p CABG x 2 (PATEL-LAD, SVG-PDA), MAZE and ALEX clip in 12/2024 for 3 weeks, then to [facility]. No chest pain this admission. - continue home ASA, atorvastatin, zetia, and metoprolol Assessment & Plan (03/31/2025 12:04 PM DIRECTOR OF BILLING): S/p CABG x 2 (PATEL-LAD, SVG-PDA), MAZE and ALEX clip in 12/2024 for 3 weeks, then to [facility]. No chest pain this admission. - continue home ASA, atorvastatin, zetia, and metoprolol Assessment & Plan (03/30/2025 3:29 PM DIRECTOR OF BILLING): S/p CABG x 2 (PATEL-LAD, SVG-PDA), MAZE and ALEX clip in December 2024. No chest pain this admit Ct ASA, statin and BB Assessment & Plan (01/17/2025 11:41 AM CDT): 12/28: s/p CABG x 2 PATEL-LAD, SVG-PDA) Post procedure YONY: EF approx 40%, mild MR, AI. CI 2.5 w chest closed -ASA/statin/zetia/spirolactone daily -PAPER CLEANER - off 01/04 9 ECHO 1. Normal [...] 11/19/2024 Assessment & Plan (03/25/2025 3:22 PM DIRECTOR OF BILLING): This has been in place for 45 [...] 11/19/2024 Assessment & Plan (04/10/2025 2:59 PM DIRECTOR OF BILLING): On 04/09, patient mentioned he would ambulate [...] prior. Assessment & Plan (04/09/2025 3:24 PM DIRECTOR OF BILLING): On 04/09, patient mentioned he would ambulate [...] prior. Assessment & Plan (03/25/2025 3:28 PM DIRECTOR OF BILLING): This has not improved since his CABG [...] 03/19/2024 Assessment & Plan (03/19/2024 11:05 AM DIRECTOR OF BILLING): Patient is interested in the steroid injections. Will refer him back to Orthopedics to discuss steroid injections for both of his knees Hand arthritis 03/19/2024 Assessment & Plan (03/19/2024 11:06 AM DIRECTOR OF BILLING): Will obtain new x-rays today. Referral to ortho hand in [place]. I told him alternatively there would be Dr. Du at [facility]. Encounter for Medicare annual wellness exam 12/2023 Assessment & Plan (11/21/2023 11:16 AM CDT): A(n) yearly Medicare Annual Wellness Visit has been performed today. Megan Roberts Tacho is not up to date on screening [...] establish care has been performed today. Megan Sheehan is up to date on screening [...] 08/17/2022 Assessment & Plan (04/10/2025 2:59 PM DIRECTOR OF BILLING): - continue home pred 5mg daily Assessment & Plan (04/09/2025 3:24 PM DIRECTOR OF BILLING): - continue home pred 5mg daily Assessment & Plan (04/08/2025 12:04 PM DIRECTOR OF BILLING): - continue home pred 5mg daily Assessment & Plan (04/07/2025 10:32 AM DIRECTOR OF BILLING): - continue home pred 5mg daily Assessment & Plan (04/06/2025 12:21 PM DIRECTOR OF BILLING): - continue home pred 5mg daily Assessment & Plan (04/05/2025 1:09 PM DIRECTOR OF BILLING): - continue home pred 5mg daily Assessment & Plan (04/04/2025 2:19 PM DIRECTOR OF BILLING): - continue home pred 5mg daily Assessment & Plan (04/03/2025 7:55 AM DIRECTOR OF BILLING): - continue home pred 5mg daily Assessment & Plan (04/02/2025 12:21 PM DIRECTOR OF BILLING): - continue home pred 5mg daily Assessment & Plan (12/30/2024 7:40 PM CDT): -Home prednisone 5 mg daily Assessment & Plan (07/13/2024 10:40 AM DIRECTOR OF BILLING): Chronic problem. Currently taking prednisone 10mg every [...] prednisone down to 5mg twice daily. 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 In case of any extreme weakness, abdominal pain, diarrhea or dizziness, it is recommended for you to call an ambulance and proceed to the nearest emergency room. Assessment & Plan (07/05/2023 2:53 PM DIRECTOR OF BILLING): Chronic problem. Currently taking prednisone 5mg twice [...] room. Assessment & Plan (05/19/2023 12:49 PM DIRECTOR OF BILLING): Patient continuing his Prednisone and set to follow up with Endo in June. Assessment & Plan (11/18/2022 3:01 PM CDT): Chronic problem. Discussed tapering prednisone dose from 15mg total/day down to 5mg daily. Reserving 10-15mg for sick days. Will call if any difficulties with tapering. Reviewed red flags. Will check TSH, T3, T4 today. Verified that he uses [facility]. Aware to check results/results letter in [email or web address]. Will contact by phone if needed. It [...] 07/04/2022 Assessment & Plan (07/05/2022 7:58 PM DIRECTOR OF BILLING): On 12/2021 started high dose steroid due [...] tapering. Assessment & Plan (07/04/2022 4:17 PM DIRECTOR OF BILLING): On 12/2021 started high dose steroid due [...] Cardiology Assessment & Plan (05/19/2023 12:42 PM DIRECTOR OF BILLING): Patient continues to follow with Cardiology. Continues [...] changes. Assessment & Plan (07/05/2022 8:13 PM DIRECTOR OF BILLING): TTE 03/2022 with LV dilation with EF [...] 09/09/2022) Assessment & Plan (07/04/2022 4:23 PM DIRECTOR OF BILLING): TTE 03/2022 with LV dilation with EF [...] cost Assessment & Plan (07/03/2022 5:05 PM DIRECTOR OF BILLING): TTE 03/2022 with LV dilation with EF [...] cost Assessment & Plan (04/05/2022 4:32 PM DIRECTOR OF BILLING): Heart Failure with Reduced Ejection Fraction: EF [...] currently Assessment & Plan (04/04/2022 3:23 PM DIRECTOR OF BILLING): Heart Failure with Reduced Ejection Fraction: EF 25% (TTE 03/2022), profile A, NYHA II, - Diuretic: None currently - Beta Jihan: Metoprolol tartrate 37.5 mg BID, will consolidate to XL prior to D/C - BRENTON/ARB/ARNI: On Entresto at home, will resume as tolerated - Device: No device currently Failure to thrive in adult 03/25/2022 Assessment & Plan (04/05/2022 4:31 PM DIRECTOR OF BILLING): - Patient presenting with decreased PO intake, noncompliance medications, reported wt loss - RD consult, currently on TF via DHT - Swallow evaluation to remove DHT and begin oral nutrition Assessment & Plan (04/04/2022 3:20 PM DIRECTOR OF BILLING): - Patient presenting with decreased PO intake, noncompliance medications, reported wt loss - RD consult, currently on TF via DHT Falls 03/25/2022 Assessment & Plan (04/05/2022 4:31 PM DIRECTOR OF BILLING): - Patient lives alone with reportedly intermittent falls at home; last prior to admission without reported head trauma - Head CT unremarkable - Fall precautions, empiric coverage for Wernicke per above Assessment & Plan (04/04/2022 3:20 PM DIRECTOR OF BILLING): - Patient lives alone with reportedly intermittent falls at home; last prior to admission without reported head trauma - Head CT unremarkable - Fall precautions, empiric coverage for Wernicke per above - PT/OT High risk medication use 03/25/2022 Atrial fibrillation 12/01/2021 Overview (12/01/2021): Added automatically from request for surgery [id number] Assessment & Plan (01/19/2025 8:45 AM CDT): [...] 01/19 Assessment & Plan (07/05/2022 8:09 PM DIRECTOR OF BILLING): EKG on admission w/ AFL - eliquis - metop Assessment & Plan (07/04/2022 4:24 PM DIRECTOR OF BILLING): EKG on admission w/ AFL - eliquis - metop Assessment & Plan (07/02/2022 9:24 PM DIRECTOR OF BILLING): EKG on admission w/ AFL - eliquis - metop Assessment & Plan (04/05/2022 4:30 PM DIRECTOR OF BILLING): Presenting with Afib with HR currently at goal < 110, episode of hypotension 03/29 with RVR requiring ICU transfer - On metoprolol tartrate 37.5 mg BID, rate controlled - Continue telemetry for now (currently rate controlled) - Theraputic lovenox Assessment & Plan (04/04/2022 3:18 PM DIRECTOR OF BILLING): Presenting with Afib with HR currently at goal < 110, episode of hypotension 03/29 with RVR requiring ICU transfer - On metoprolol tartrate 37.5 mg BID, rate controlled - Continue telemetry for now - Theraputic lovenox Chronic HFrEF (heart failure with reduced ejection fraction) 10/22/2021 Assessment & Plan (03/25/2025 3:27 PM DIRECTOR OF BILLING): Continue ASA, Eliquis, Statin and Zetia Continue [...] BP, restart in outpt setting ASA/eliquis/Statin/ zetia .5 mg spironolactone entresto/ farxiga on hold post operative Restarted lasix 20 mg PO today 01/16 ECHO EF 47 % normal RV size and function Assessment & Plan (03/28/2022 2:53 PM DIRECTOR OF BILLING): - Recent TTE 2wks ago with EF [...] 08/28/2021 Assessment & Plan (04/10/2025 2:59 PM DIRECTOR OF BILLING): S/p CABG x 2 (PATEL-LAD, SVG-PDA), MAZE and ALEX clip in 12/2024 for 3 weeks, then to [facility]. No chest pain this admission. - continue home ASA, atorvastatin, zetia, and metoprolol - TTE obtained during admission on 04/08 showed LVEF 40% with repeat 04/09 TTE limited showing LVEF 54% with mild RV hypokinesis. - follow-up with cardiology on 05/30/25 and 11/19/25 Assessment & Plan (04/09/2025 3:24 PM DIRECTOR OF BILLING): S/p CABG x 2 (PATEL-LAD, SVG-PDA), MAZE and ALEX clip in 12/2024 for 3 weeks, then to [facility]. No chest pain this admission. - continue home ASA, atorvastatin, zetia, and metoprolol - TTE on 04/08 with LVEF 40%. TTE limited on 04/09 with EF 54%. Assessment & Plan (04/08/2025 12:04 PM DIRECTOR OF BILLING): S/p CABG x 2 (PATEL-LAD, SVG-PDA), MAZE and ALEX clip in 12/2024 for 3 weeks, then to [facility]. No chest pain this admission. - continue home ASA, atorvastatin, zetia, and metoprolol - TTE ordered given he was due for one outpatient at this time for CABG follow up. Assessment & Plan (04/07/2025 10:32 AM DIRECTOR OF BILLING): S/p CABG x 2 (PATEL-LAD, SVG-PDA), MAZE and ALEX clip in 12/2024 for 3 weeks, then to [facility]. No chest pain this admission. - continue home ASA, atorvastatin, zetia, and metoprolol Assessment & Plan (04/06/2025 12:21 PM DIRECTOR OF BILLING): S/p CABG x 2 (PATEL-LAD, SVG-PDA), MAZE and ALEX clip in 12/2024 for 3 weeks, then to [facility]. No chest pain this admission. - continue home ASA, atorvastatin, zetia, and metoprolol Assessment & Plan (04/05/2025 1:09 PM DIRECTOR OF BILLING): S/p CABG x 2 (PATEL-LAD, SVG-PDA), MAZE and ALEX clip in 12/2024 for 3 weeks, then to [facility]. No chest pain this admission. - continue home ASA, atorvastatin, zetia, and metoprolol Assessment & Plan (04/04/2025 2:19 PM DIRECTOR OF BILLING): S/p CABG x 2 (PATEL-LAD, SVG-PDA), MAZE and ALEX clip in 12/2024 for 3 weeks, then to [facility]. No chest pain this admission. - continue home ASA, atorvastatin, zetia, and metoprolol Assessment & Plan (04/03/2025 7:55 AM DIRECTOR OF BILLING): S/p CABG x 2 (PATEL-LAD, SVG-PDA), MAZE and ALEX clip in 12/2024 for 3 weeks, then to [facility]. No chest pain this admission. - continue home ASA, atorvastatin, zetia, and metoprolol Assessment & Plan (04/02/2025 11:56 AM DIRECTOR OF BILLING): S/p CABG x 2 (PATEL-LAD, SVG-PDA), MAZE and ALEX clip in 12/2024 for 3 weeks, then to [facility]. No chest pain this admission. - continue home ASA, atorvastatin, zetia, and metoprolol Assessment & Plan (04/01/2025 9:07 AM DIRECTOR OF BILLING): S/p CABG x 2 (PATEL-LAD, SVG-PDA), MAZE and ALEX clip in 12/2024 for 3 weeks, then to [facility]. No chest pain this admission. - continue home ASA, atorvastatin, zetia, and metoprolol Assessment & Plan (03/31/2025 12:04 PM DIRECTOR OF BILLING): S/p CABG x 2 (PATEL-LAD, SVG-PDA), MAZE and ALEX clip in 12/2024 for 3 weeks, then to [facility]. No chest pain this admission. - continue home ASA, atorvastatin, zetia, and metoprolol Assessment & Plan (03/30/2025 1:06 PM DIRECTOR OF BILLING): Atorvastatin 80 and zetia Assessment & Plan (02/11/2025 5:46 PM CDT): Patient advised he should be taking atorvastatin 80 mg daily. Assessment & Plan (07/05/2022 8:06 PM DIRECTOR OF BILLING): Statin Assessment & Plan (07/04/2022 4:23 PM DIRECTOR OF BILLING): Statin Assessment & Plan (07/03/2022 5:08 PM DIRECTOR OF BILLING): Statin Assessment & Plan (04/05/2022 4:32 PM DIRECTOR OF BILLING): - Cont statin once able to tolerate PO Assessment & Plan (03/25/2022 11:54 PM DIRECTOR OF BILLING): - Cont statin Hypertension 08/28/2021 Assessment & [...] 08/08/2021 Assessment & Plan (04/19/2025 12:45 PM DIRECTOR OF BILLING): Recheck in 1 month History of pulmonary embolism 08/07/2021 Assessment & Plan (02/11/2025 5:46 PM CDT): Discussed with patient importance of restarting his Eliquis. He is advised to restart Eliquis 5 mg b.i.d.. Assessment & Plan (01/19/2025 8:50 AM CDT): post operative ALEX clip Continue asa Dc plavix 01/09 Eliquis on hold per Assessment & Plan (04/05/2022 4:32 PM DIRECTOR OF BILLING): - Submassive PE diagnosed in 07/2021 - CT PE negative here (in setting of apixaban noncompliance) - Lovenox Assessment & Plan (04/04/2022 3:21 PM DIRECTOR OF BILLING): - Submassive PE diagnosed in 07/2021 - CT PE negative here (in setting of apixaban noncompliance) - Lovenox Clear cell carcinoma of kidney, right 06/05/2018 Cancer Staging:Clinical stage from 10/14/2021:Stage III(cT3a, cN1, cM0) - Signed by Mykel Mccauley DO on 10/17/2021 Overview (08/28/2021): Added automatically from request for surgery [id number] Added automatically from request for surgery [id number] Assessment & Plan (07/05/2022 8:09 PM DIRECTOR OF BILLING): Follows with Dr. Mccauley. Bee 2017. S/p ablation and radical nephrectomy. Completed 5 cycles of pembrolizumab -12/2021. 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 Mccauley. Bee 2018. S/p ablation and radical nephrectomy. Completed 5 cycles of pembrolizumab -12/2021. 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 Mccauley. Bee 2018. S/p ablation and radical nephrectomy. Completed 5 cycles of pembrolizumab -12/2021. 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 Mccualey. Bee 2018. S/p ablation and radical nephrectomy. Completed 5 cycles of pembrolizumab -12/2021. 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 - Continues on IVIG and solumedrol per oncology Assessment & Plan (04/04/2022 3:20 PM DIRECTOR OF BILLING): Follows with Dr. Mccauley. Dx 2018. S/p ablation and radical nephrectomy. Completed 5 cycles of pembrolizumab 3-12/2021. 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 - Continues on IVIG and solumedrol per oncology Chronic left shoulder pain 02/18/2016 Acute renal failure superimposed on chronic kidn ey disease Assessment & Plan (07/05/2022 8:12 PM DIRECTOR OF BILLING): Cr 1.8 (baseline 1) - euvolemic on exam without recent GI losses or poor PO intake - IVF were hold - Initially aldactone, entresto and lasix were hold. - Cr improve to 1.37. - Restarted entresto and lower dose of lasix (from 40 mg daily to 20 mg daily) Assessment & Plan (07/04/2022 4:25 PM DIRECTOR OF BILLING): Cr 1.8 (baseline 1) - euvolemic on exam without recent GI losses or poor PO intake - Cr improve to 1.47. - would not give fluids - Hold aldactone, entresto and lasix Assessment & Plan (07/03/2022 5:08 PM DIRECTOR OF BILLING): Cr 1.8 (baseline 1) - euvolemic on exam without recent GI losses or poor PO intake - improving without intervention - would not give fluids - Hold aldactone, entresto and lasix Assessment & Plan (04/05/2022 4:30 PM DIRECTOR OF BILLING): - Presenting with Cr 1.81 up from baseline ~1.3 in setting of decreased PO intake, now resolved with supportive care - Avoid nephrotoxins, renal-dose meds Assessment & Plan (04/04/2022 3:18 PM DIRECTOR OF BILLING): - Presenting with Cr 1.81 up from baseline ~1.3 in setting of decreased PO intake, now resolved with supportive care - Avoid nephrotoxins, renal-dose meds Drug reaction Neurotoxicity Assessment & Plan (07/05/2022 7:58 PM DIRECTOR OF BILLING): 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, high dose steroids, now on pred 10 daily - On the ED receive hydrocortisone 59 ng x 3 - Steroid as mention - should not need PJP ppx on this dose - start PPI ppx Assessment & Plan (07/04/2022 4:19 PM DIRECTOR OF BILLING): 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, high dose steroids, now on pred 10 daily - On the ED receive hydrocortisone 59 ng x 3 - Steroid as mention - should not need PJP ppx on this dose - start PPI ppx Assessment & Plan (07/03/2022 4:51 PM DIRECTOR OF BILLING): 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, high dose steroids, now on pred 10 daily - On the ED receive hydrocortisone 59 ng x 3 - Now pred 10 - should not need PJP ppx on this dose - start PPI ppx Assessment & Plan (04/05/2022 4:30 PM DIRECTOR OF BILLING): Patient presenting with acute on chronic encephalopathy [...] redirectable Assessment & Plan (04/04/2022 3:16 PM DIRECTOR OF BILLING): Patient presenting with acute on chronic encephalopathy [...] 025 Assessment & Plan (04/09/2025 3:24 PM DIRECTOR OF BILLING): Presents with acute (2-5d) altered mental status, [...] decision Assessment & Plan (04/08/2025 12:04 PM DIRECTOR OF BILLING): Presents with acute (2-5d) altered mental status, [...] now. Assessment & Plan (04/07/2025 10:32 AM DIRECTOR OF BILLING): Presents with acute (2-5d) altered mental status, [...] retention. Assessment & Plan (04/06/2025 12:21 PM DIRECTOR OF BILLING): Presents with acute (2-5d) altered mental status, [...] normal. Assessment & Plan (04/05/2025 1:09 PM DIRECTOR OF BILLING): Presents with acute (2-5d) altered mental status, [...] normal. Assessment & Plan (04/04/2025 2:19 PM DIRECTOR OF BILLING): Presents with acute (2-5d) altered mental status, [...] normal. Assessment & Plan (04/03/2025 1:32 PM DIRECTOR OF BILLING): Presents with acute (2-5d) altered mental status, [...] baseline. Assessment & Plan (04/02/2025 12:21 PM DIRECTOR OF BILLING): Presents with acute (2-5d) altered mental status, [...] sitter Assessment & Plan (04/01/2025 10:20 PM DIRECTOR OF BILLING): Presents with acute (2-5d) altered mental status, [...] ativan Assessment & Plan (03/31/2025 12:06 PM DIRECTOR OF BILLING): Presents with acute (2-5d) altered mental status, [...] ativan Assessment & Plan (03/30/2025 4:49 PM DIRECTOR OF BILLING): Likely delirium given waxing waning status -Ordered [...] 10/13/2022 Assessment & Plan (07/05/2022 8:06 PM DIRECTOR OF BILLING): SBP has been on the low 100s [...] started. Assessment & Plan (07/04/2022 4:23 PM DIRECTOR OF BILLING): SBP has been on the low 100s [...] lasix Assessment & Plan (07/03/2022 5:03 PM DIRECTOR OF BILLING): SBP has been on the low 100s [...] 12/26/2024 Assessment & Plan (07/05/2022 7:54 PM DIRECTOR OF BILLING): home metal #5 - does not use trach collar Assessment & Plan (07/04/2022 4:17 PM DIRECTOR OF BILLING): home metal #5 - does not use trach collar Assessment & Plan (07/02/2022 10:20 PM DIRECTOR OF BILLING): home metal #5 - does not use trach collar Shortness of breath 07/01/2022 10/14/19 23 Assessment & Plan (07/05/2022 8:13 PM DIRECTOR OF BILLING): PHx of HFrEF (EF 20%), PE on [...] No wheezing on exam. Stress test at [facility] 2018 (media) indeterminate. May have had ischemic eval afterwards but records not available. Cardiac MRI 06/2022 w/ Dilated cardiomyopathy with markedly reduced right and left ventricular ejection fraction. No evidence of myocarditis Plan: - empiric coverage for PNM: CTX, azithro for 3 days - BCx NGTD - Resolve SOB Assessment & Plan (07/04/2022 4:19 PM DIRECTOR OF BILLING): PHx of HFrEF (EF 20%), PE on [...] No wheezing on exam. Stress test at [facility] 2018 (media) indeterminate. May have had ischemic [...] 09/09/2022) Assessment & Plan (07/03/2022 4:48 PM DIRECTOR OF BILLING): PHx of HFrEF (EF 20%), PE on [...] No wheezing on exam. Stress test at [facility] 2018 (media) indeterminate. May have had ischemic [...] (06/03/2022): Added automatically from request for surgery [id number] Severe malnutrition 03/26/2022 11/21/19 24 Assessment & Plan (04/05/2022 4:32 PM DIRECTOR OF BILLING): RD following, continue TF - SEARCH MANAGER to follow for continued swallow eval given risk of aspiration Assessment & Plan (04/04/2022 3:21 PM DIRECTOR OF BILLING): RD following, continue TF - SEARCH MANAGER to follow for continued swallow eval given risk of aspiration Hypercalcemia 03/25/2022 03/26/2022 Assessment & Plan (03/25/2022 11:54 PM DIRECTOR OF BILLING): - Presume secondary to dehydration - monitor s/p IVF SIRS (systemic inflammatory response syndrome) 03/25/2022 12/07/2024 Shortness of breath 03/09/2022 03/25/20 22 Assessment & Plan (03/25/2022 11:55 PM DIRECTOR OF BILLING): - Hypotension 12/14/2021 10/13/2022 Cor pulmonale, acute 08/20/2021 024 Postural dizziness with presyncope 08/08/2021 10/07/2021 Stage 3a chronic kidney disease 08/08/2021 10/07/2021 Tachycardia 08/08/2021 10/07/2021 Adenomatous polyp of colon 03/21/2018 0 10/13/2022 Right kidney mass 03/15/2018 10/07/2021 Impingement syndrome of left shoulder 03/22/2013 10/07/2021 Prediabetes 06/15/2011 10/07/2021 Encounters Date Type Department Care Team Description 04/30/2025 Results Follow-Up [facility] at [address] [place] [phone] Chest High Resolution WO Contrast 04/24/2025 11:00 AM DIRECTOR OF BILLING - 04/24/2025 11:59 PM DIRECTOR OF BILLING Hospital Encounter [address] [address] Dyspnea on minimal exertion Discharge Disposition: Discharge to home or self care 04/19/2025 Telephone [facility] [address] [place] [address] Evelina Hodges RN Cardiac Rehab 04/17/2025 2:30 PM DIRECTOR OF BILLING Office Visit [facility] at [address] [phone] Cheryl Tate NP Physical deconditioning (Primary Dx); Gastroesophageal reflux disease without esophagitis; Chronic disease anemia; Subclinical hypothyroidism 04/12/2025 Telephone [facility] at [address] [phone] Jeferson Elena MD Follow-up 04/10/2025 Telephone [facility] at [address] [phone] Jeferson Elena MD TRAE Questions 04/04/2025 Telephone [facility] [address] [place] [phone] Natalie Cast MS 03/29/2025 10:45 PM DIRECTOR OF BILLING - 04/10/2025 4:15 PM DIRECTOR OF BILLING Hospital Encounter [address] [phone] Froelke, Bobby LeighMD Parisa John L., DO Chow, Kelsey Sarah, MD Loh, MD Eddi Noe, MD Fabiola Spaulding, Rosario Benitez MD Tracheostomy care (Primary Dx); Coronary artery disease involving coronary bypass graft of [place] heart without angina pectoris; Physical deconditioning; Acute encephalopathy Discharge Disposition: Discharge to home, home health skilled care 03/25/2025 11:00 AM DIRECTOR OF BILLING Office Visit [facility] at [address] [place] [phone] Shwetha Lowe NP Dyspnea on minimal exertion (Primary Dx); Chronic HFrEF (heart failure with reduced ejection fraction) (HCC); Tracheostomy dependent (HCC) 03/18/2025 Telephone [facility] [address] [place] [phone] Segun NatalieMS lorne 03/12/2025 10:30 AM CDT Office Visit [facility] [address] [place] [address] Floor 1, [address] [place] [address] Artie Henderson MD Tracheal stenosis (Primary Dx); CAD, multiple vessel; Longstanding persistent atrial fibrillation (HCC) 03/12/2025 Telephone [facility] [address] [place] [address] 1, [address] [place] [address] Artie Henderson MD 03/11/2025 10:15 AM CDT Office Visit [facility] at [address] [phone] Jeferson Elena MD Primary hypertension (Primary Dx); Screening for colon cancer; Mixed hyperlipidemia; Heart failure with reduced ejection fraction; History of pulmonary embolism; Restrictive lung disease 02/25/2025 Telephone [facility] at [address] [phone] Jeferson Elena MD Medical Question/Miscellaneo us 02/23/[address] [phone] Marci Prasad NP 02/21/2025 9:31 AM CDT - 02/21/2025 11:59 PM CDT Hospital Encounter [facility] [address] [place] [phone] Follow-up examination following surgery Discharge Disposition: Discharge to home or self care 02/21/2025 9:30 AM CDT Office Visit [facility] [address] [place] [address] 8th Floor [address] Room [address] [place] [phone] Parth Dalton MD Longstanding persistent atrial fibrillation (HCC) (Primary Dx) 02/21/2025 Orders Only [facility] [address] [place] [address] 8th Floor [address] Room [address] [place] [phone] Parth Dalton MD Follow-up examination following surgery (Primary Dx) 02/13/2025 Telephone [facility] [address] [place] [address] 8th Floor [address] Room [address] [place] [phone] Parth Dalton MD Symptom Based Call 02/13/2025 Telephone [facility] at [address] [phone] Jeferson Elena MD Medical Question/Miscellaneo us 02/11/2025 Telephone [facility] at [address] [phone] Jeferson Elena MD Symptom Based Call 02/11/2025 Telephone [facility] at [address] [phone] Jeferson Elena MD Ortho vitals 02/08/2025 10:00 AM CDT Telemedicine [facility] at [address] [phone] Cherise Butts NP History of pulmonary embolism (Primary Dx); ASCVD (arteriosclerotic cardiovascular disease); Primary hypertension; Mixed hyperlipidemia; Hospital discharge follow-up 02/08/2025 Telephone [facility] [address] [facility] 8th Floor [address] Room [address] [place] [phone] Rosi Jha NP 02/06/2025 Telephone [facility] at [address] [phone] Jeferson Elena MD TRAE Questions 02/04/2025 Orders Only [facility] at [address] [phone] Provider, MD Yana from Last 3 Months Immunizations Immunization Administration [...] INGUINAL HERNIA REPAIR 08/23/2001 Right Robotic eTEP [facility] FRACTURE SURGERY 05/16/1976 - 05/15/1977 CARPAL TUNNEL RELEASE 03/16/2013 Right FEMUR FRACTURE SURGERY Right CARDIAC CATHETERIZATION 08/29/2024 N/A Procedure: PCI COMMERCIAL COLLECTOR ERVIN REVASCULARIZATION - FIRST VESSEL C9607 - [id number]; Surgeon: Ana M Renteria MD; Location: [facility] CARDIAC VASCULAR ULTRASOUND TECHNOLOGIST; Service: Cardiovascular; Laterality: N/A; Hold on 07/24 instructed to hold eliquis 48hrs prior; PCI COMMERCIAL COLLECTOR LAD Medical devices from this surgery are in the Medical Devices section. CARDIAC CATHETERIZATION 11/15/2024 N/A Procedure: PCI COMMERCIAL COLLECTOR ERVIN REVASCULARIZATION - FIRST VESSEL C9607 - [id number]; Surgeon: Ana M Renteria MD; Location: [facility] CARDIAC VASCULAR ULTRASOUND TECHNOLOGIST; Service: Cardiovascular; Laterality: N/A; instructed to hold [...] 06/03/2022 Added automatically from request for surgery [id number] Thrombocytopenia 12/30/2024 Family History Medical History Relation [...] often do you attend chur ch or sabianism services? Never 08/24/2022 Do you belong to any clubs o r organizations such as orthodoxy groups, unions, fraternal or athletic groups, or [...] more points, staff should administer the PHQ-9) 0 04/17/2025 PRAPARE - Transportation Answer Date Re corded [...] place to sleep or slept in a correction (including now)? No 08/24/2022 PHQ-9 Answer Date [...] often do you attend chur ch or sabianism services? Never 04/12/2025 Do you belong to any clubs o r organizations such as orthodoxy groups, unions, fraternal or athletic groups, or [...] any time in the past 12 m [facility], were you homeless or living in a correction (including now)? 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 Not on file Not on file Last Filed Vital Signs Vital Sign Reading Time Taken Comments Blood Pressure 104/64 04/17/2025 2:38 PM DIRECTOR OF BILLING Pulse 52 04/17/2025 2:38 PM DIRECTOR OF BILLING Temperature 36.3 C (97.3 F) 04/17/2025 2:38 PM DIRECTOR OF BILLING Respiratory Rate 18 04/10/2025 9:31 AM DIRECTOR OF BILLING Oxygen Saturation 99% 04/17/2025 2:38 PM DIRECTOR OF BILLING Inhaled Oxygen Concentration - - Weight 87.5 kg (193 lb) 04/17/2025 2:38 PM DIRECTOR OF BILLING Height 175.3 cm (5' 9.02) 04/17/2025 2:38 PM CS T Body Mass Index 28.49 04/17/2025 2:38 PM DIRECTOR OF BILLING Plan of Treatment Health Maintenance Due Date Last Done Comments DTaP/Tdap/Td Vaccine (4 - Td or Tdap) 05/15/2025 05/28/2010, 12/16/2000, 12/16/2000, Additional history exists Postponed from 05/28/2020 (Insurance / Financial) Colon Cancer Screening-DNA Stool 10/20/2025 10/20/2022 Influenza Vaccine (#1) 2025 , 02/06/2024, 02/02/2023, Additional history exists Postponed from 01/14/2025 (Patient declined, but will receive in the future) Well Visit 65+ 12/07/2025 12/07/2024, 11/21/2023 Covid-19 Vaccine ( season) 2026 08/17/2024, 02/06/2024, 02/06/2024, Additional history exists Postponed from 01/14/2025 (Patient declined, but will receive in the future) Zoster Vaccine (2 of 3) 03/11/2026 05/28/2010 Post poned from 07/23/2010 (Insurance / Financial) Depression Screening 04/17/2026 04/17/2025, 03/29/2025, 03/11/2025, Additional history exists Fall Risk Assessment 04/17/2026 04/17/2025, 04/09/2025, 12/07/2024, Additional history exists Hepatitis C Screening Completed 02/17/2023 Pneumococcal vaccine 65+ Completed 025, 02/12/2016, 02/10/2015 Hepatitis B Screening Completed 12/07/2024 Abdominal Aortic Aneurysm (AAA) Screen Completed 01/13/2025, 12/24/2024, 07/01/2024, Additional history exists Medical Devices Implanted Type Area National Accounts Sales Device Identifier Shelf Expiration Date Model / Serial / Lot Atricure Device Left Atrial Appendage Malleable Shaft 180 Degree Rotation White Atriclip Flex V 45mm [id number] - S0 - [id number] Implanted:Qty: 1 on 12/28/2024 by Parth Dalton MD at [facility] Clip Left: Atrial Appendage Atricure 08/15/2027 [id number] / [id number] / [id number] [employer] Angio-Seal Vip 6fr Closere Device 228301 - [id number] - [id number] Implanted:Qty: 1 on 10/05/2023 by James Limon MD at [facility] Collagen Left: Groin [employer] 06/15/2024 [id number] / [id number] / [id number] [employer] Angio-Seal Vip 6fr Closere Device 180856 - [id number] - [id number] Implanted:Qty: 1 on 10/05/2023 by James Limon MD at [facility] Collagen Right: Groin [employer] 06/15/2024 [id number] / [id number] / [id number] [employer] Angio-Seal Vip 6fr Closere Device 610585 - [id number] - [id number] Implanted:Qty: 1 on 11/23/2023 by Ana M Renteria MD at [facility] Collagen Left: Common Femoral Artery [employer] 06/06/2024 [id number] / [id number] / [id number] [employer] Angio-Seal Vip 6fr Closere Device 300796 - [id number] - [id number] Implanted:Qty: 1 on 11/23/2023 by Ana M Renteria MD at [facility] Collagen Right: Common Femoral Artery [employer] 04/18/2024 888659 / [id number] / [id number] [employer] Angio-Seal Vip 6fr Closere Device 104537 - [id number] - [id number] Implanted:Qty: 1 on 02/14/2024 by Ana M Renteria MD at [facility] Collagen [employer] 09/08/2024 [id number] / [id number] 18 / [id number] [employer] Angio-Seal Vip 6fr Closere Device 439451 - [id number] - [id number] Implanted:Qty: 1 on 02/14/2024 by Ana M Renteria MD at [facility] Collagen [employer] 09/08/2024 844135 / [id number] / [id number] [employer]/C R Bard 209241 Bard [id number] Monofilament Soft Lightweight Low Profile Square - [id number] Implanted:Qty: 1 on 08/23/2022 by Micheal Cabral MD at [facility] Mesh N/A: Abdomen [employer]/C R Bard [id number] 08/10/2026 [id number] / / [id number] [employer] R Bard Mesh Surg 3dmax Right Mid Large Inguinal Hernia [id number] - [id number] Implanted:Qty: 1 on 08/23/2022 by Micheal Cabral MD at [facility] Mesh Right: Inguinal [employer]/C R Bard [id number] 05/12/2027 [id number] / / [employer] Angio-Seal Vip 6fr Closere Device 047347 - [id number] - [id number] Implanted:Qty: 1 on 08/29/2024 by Ana M Renteria MD at [facility] Vascular Closure Device Right: Common Femoral Artery [employer] 04/02/2025 [id number] / [id number] / [id number] [employer] Angio-Seal Vip 6fr Closere Device 731052 - [id number] - [id number] Implanted:Qty: 1 on 08/29/2024 by Ana M Renteria MD at [facility] Vascular Closure Device Left: Common Femoral Artery [employer] 04/02/2025 913714 / [id number] / [id number] [employer] Angio-Seal Vip 6fr Closere Device 140243 - [id number] - [id number] Implanted:Qty: 1 on 11/15/2024 by Ana M Renteria MD at [facility] Vascular Closure Device Right: Femoral [employer] 05/29/2025 031688 / [id number] / [id number] [employer] Angio-Seal Vip 6fr Closere Device 516824 - [id number] - [id number] Implanted:Qty: 1 on 11/15/2024 by Ana M Renteria MD at [facility] Vascular Closure Device Left: Femoral [employer] 05/29/2025 364593 / [id number] / 73 Lsi [employer] Suture [place] Cor Knot Pre Loaded Fastener Device Micro Titanium 0 24089 - [id number] Implanted:Qty: 2 on 12/28/2024 by Parth Dalton MD at [facility] [employer] [id number] 01/13/2027 [id number] / / [id number] [employer] Device Closure Fibertape Sternal Cerclage Blunt Needle Ar-7289 - [id number] Implanted:Qty: 3 on 12/28/2024 by Parth Dalton MD at [facility] [employer] [id number] 11/12/2029 AR-7289 / / [id number] [employer] Plate Bone Low Profile 6 Hole H Shape Sternum Ti 115.102.06 - [id number] Implanted:Qty: 2 on 12/28/2024 by Parth Dalton MD at [facility] [employer] 115.102. 06 / / [employer] Screw Bone Slf Drl Full Thread Locking 3.5x16mm Ti 100.035.16 - [id number] Implanted:Qty: 10 on 12/28/2024 by Parth Dalton MD at [facility] [employer] 100.035. 16 / / [employer] Screw Bone Slf Drl Full Thread Locking 3.5x18mm Ti 100.035.18 - [id number] Implanted:Qty: 8 on 12/28/2024 by Parth Dalton MD at [facility] Sternum [employer] 100.035. 18 / / [employer] Plate Bone Low Profile 6 Hole O Shape Sternum Ti 115.104.06 - [id number] Implanted:Qty: 1 on 12/28/2024 by Parth Dalton MD at [facility] Sternum [employer] 115.104. 06 / / Procedures Procedure Name Priority Date/Time Associated Diagnosis Comments CT CHEST HIGH RESOLUTION WO CONTRAST Schedule Routine, Read Routine (OP Routine) 04/24/2025 11:28 AM DIRECTOR OF BILLING Dyspnea on minimal exertion TRANSTHORACIC ECHO (TTE) LIMITED/FOLLOW UP W LTD DOPPLER/CF W CONTRAST Routine 04/09/2025 12:18 PM DIRECTOR OF BILLING TRANSTHORACIC ECHO (TTE) COMPLETE W DOPPLER/CF WO CONTRAST ED Urgent/IP Urgent 04/08/2025 4:56 PM DIRECTOR OF BILLING INFECTION PREVENTION BLANCHE AURIS PCR, SURVEILLANCE Routine 04/08/2025 12:51 PM DIRECTOR OF BILLING MRI BRAIN W WO CONTRAST IP Routine 04/06/2025 2:32 PM DIRECTOR OF BILLING TYPE AND SCREEN Timed 04/04/2025 8:11 PM DIRECTOR OF BILLING INFECTION PREVENTION BLANCHE AURIS PCR, SURVEILLANCE Routine 04/04/2025 6:23 AM DIRECTOR OF BILLING EGFR Timed 04/03/2025 10:46 PM DIRECTOR OF BILLING DIFFERENTIAL AUTO Timed 04/03/2025 10: 46 PM DIRECTOR OF BILLING PHOSPHORUS Timed 04/03/2025 10:46 PM DIRECTOR OF BILLING COMPREHENSIVE METABOLIC PANEL Timed 04/03/2025 10:46 PM DIRECTOR OF BILLING CBC WITH AUTO DIFFERENTIAL Timed 04/03/2025 10:46 PM DIRECTOR OF BILLING EGFR Timed 04/02/2025 11:11 PM DIRECTOR OF BILLING DIFFERENTIAL AUTO Timed 04/02/2025 11: 11 PM DIRECTOR OF BILLING PHOSPHORUS Timed 04/02/2025 11:11 PM DIRECTOR OF BILLING COMPREHENSIVE METABOLIC PANEL Timed 04/02/2025 11:11 PM DIRECTOR OF BILLING CBC WITH AUTO DIFFERENTIAL Timed 04/02/2025 11:11 PM DIRECTOR OF BILLING INFECTION PREVENTION BLANCHE AURIS PCR, SURVEILLANCE Routine 04/02/2025 10:40 AM DIRECTOR OF BILLING EGFR Timed 04/01/2025 11:27 PM DIRECTOR OF BILLING DIFFERENTIAL AUTO Timed 04/01/2025 11: 27 PM DIRECTOR OF BILLING PHOSPHORUS Timed 04/01/2025 11:27 PM DIRECTOR OF BILLING COMPREHENSIVE METABOLIC PANEL Timed 04/01/2025 11:27 PM DIRECTOR OF BILLING CBC WITH AUTO DIFFERENTIAL Timed 04/01/2025 11:27 PM DIRECTOR OF BILLING EGFR Timed 03/31/2025 9:03 PM DIRECTOR OF BILLING DIFFERENTIAL AUTO Timed 03/31/2025 9:0 3 PM DIRECTOR OF BILLING TYPE AND SCREEN STAT 03/31/2025 9:03 PM DIRECTOR OF BILLING URIC ACID Timed 03/31/2025 9:03 PM DIRECTOR OF BILLING PROTIME-INR Timed 03/31/2025 9:03 PM DIRECTOR OF BILLING LACTATE DEHYDROGENASE Timed 03/31/2025 9:03 PM DIRECTOR OF BILLING APTT Timed 03/31/2025 9:03 PM DIRECTOR OF BILLING DIGOXIN LEVEL Timed 03/31/2025 9:03 PM DIRECTOR OF BILLING BLOOD GAS, VENOUS Timed 03/31/2025 9:0 3 PM DIRECTOR OF BILLING PHOSPHORUS Timed 03/31/2025 9:03 PM DIRECTOR OF BILLING COMPREHENSIVE METABOLIC PANEL Timed 03/31/2025 9:03 PM DIRECTOR OF BILLING CBC WITH AUTO DIFFERENTIAL Timed 03/31/2025 9:03 PM DIRECTOR OF BILLING RPR Timed 03/31/2025 9:03 PM DIRECTOR OF BILLING HIV 1/2 ANTIBODY PLUS P24 ANTIGEN Timed 03/31/2025 9:03 PM DIRECTOR OF BILLING DRUGS OF ABUSE SCREEN, URINE WITH REFLEX CONFIRMATION STAT 03/31/2025 9:05 AM DIRECTOR OF BILLING URINALYSIS, MICROSCOPIC ONLY STAT 03/31/2025 9:05 AM DIRECTOR OF BILLING URINALYSIS AND REFLEX TO MICROSCOPIC STAT 03/31/2025 9:05 AM DIRECTOR OF BILLING ECG 12-LEAD STAT 03/31/2025 8:12 AM DIRECTOR OF BILLING DIFFERENTIAL AUTO Timed 03/30/2025 9:0 0 PM DIRECTOR OF BILLING CBC WITH AUTO DIFFERENTIAL Timed 03/30/2025 9:00 PM DIRECTOR OF BILLING T4, FREE Timed 03/30/2025 4:05 PM DIRECTOR OF BILLING THYROID FUNCTION CASCADE Timed 03/30/2025 4:05 PM DIRECTOR OF BILLING VITAMIN B12 Timed 03/30/2025 4:05 PM DIRECTOR OF BILLING EGFR Timed 03/30/2025 4:05 PM DIRECTOR OF BILLING EGFR STAT 03/30/2025 4:05 PM DIRECTOR OF BILLING DIFFERENTIAL AUTO STAT 03/30/2025 4:0 5 PM DIRECTOR OF BILLING HEMOGLOBIN A1C Routine 03/30/2025 4:05 PM DIRECTOR OF BILLING URIC ACID Routine 03/30/2025 4:05 PM DIRECTOR OF BILLING LACTATE DEHYDROGENASE Routine 03/30/2025 4:05 PM DIRECTOR OF BILLING PROTIME-INR Routine 03/30/2025 4:05 PM DIRECTOR OF BILLING APTT Routine 03/30/2025 4:05 PM DIRECTOR OF BILLING PHOSPHORUS Timed 03/30/2025 4:05 PM DIRECTOR OF BILLING COMPREHENSIVE METABOLIC PANEL Timed 03/30/2025 4:05 PM DIRECTOR OF BILLING TYPE AND SCREEN STAT 03/30/2025 4:05 PM DIRECTOR OF BILLING PHOSPHORUS STAT 03/30/2025 4:05 PM DIRECTOR OF BILLING MAGNESIUM STAT 03/30/2025 4:05 PM DIRECTOR OF BILLING COMPREHENSIVE METABOLIC PANEL STAT 03/30/2025 4:05 PM DIRECTOR OF BILLING CBC WITH AUTO DIFFERENTIAL STAT 03/30/2025 4:[address] HEAD WO CONTRAST ED Urgent/IP Urgent 03/30/2025 1:50 PM DIRECTOR OF BILLING RESPIRATORY PATHOGEN PANEL STAT 03/30/2025 11:45 AM DIRECTOR OF BILLING BLOOD CULTURE Routine 03/30/2025 11:45 AM DIRECTOR OF BILLING BLOOD CULTURE Routine 03/30/2025 11:45 AM DIRECTOR OF BILLING POCT GLUCOSE DEVICE Routine 03/30/2025 7 :16 AM DIRECTOR OF BILLING XR CHEST 1 VIEW ED 03/30/2025 12:50 AM DIRECTOR OF BILLING HEMOGLOBIN A1C STAT 03/29/2025 10:36 PM DIRECTOR OF BILLING EGFR STAT 03/29/2025 10:36 PM DIRECTOR OF BILLING DIFFERENTIAL AUTO STAT 03/29/2025 10: 36 PM DIRECTOR OF BILLING COMPREHENSIVE METABOLIC PANEL STAT 03/29/2025 10:36 PM DIRECTOR OF BILLING CBC WITH AUTO DIFFERENTIAL STAT 03/29/2025 10:36 PM DIRECTOR OF BILLING [place] [facility] ILL/INJURED PATIENT INIT 30-74 MIN Routine 03/29/2025 4:33 PM DIRECTOR OF BILLING XR CHEST PA LATERAL 2 VIEWS Schedule Routine, Read Routine (OP Routine) 02/21/2025 9:37 AM CDT Follow-up examination following surgery CT CHEST PE W CONTRAST Schedule Routine, Read Routine (OP Routine) 02/03/2025 2:[address] CHEST ABDOMEN PELVIS WO CONTRAST IP Routine 01/13/2025 12:11 AM CDT HEPATITIS C ANTIBODY Routine 02/17/2023 3:47 PM CDT Encounter for hepatitis C screening test for low risk patient STOOL DNA COLOGUARD Routine 10/20/2022 11:30 AM CDT Colon cancer screening from Last 3 Months or Most Recently Relevant to Health Maintenance Results * CT Chest High Resolution WO Contrast (04/24/2025 11:28 AM DIRECTOR OF BILLING) Anatomical Region Laterality Modality Chest N/A Computed Tomogra phy 04/26/2025 3:47 PM DIRECTOR OF BILLING Impressions 04/26/2025 3:47 PM DIRECTOR OF BILLING 1. Clear lungs. 2. Moderate-severe cardiomegaly. Electronically signed by: Johanne Schwartz MD Narrative 04/26/2025 3:47 PM DIRECTOR OF BILLING EXAMINATION: CT CHEST WITHOUT INTRAVENOUS CONTRAST (HIGH RESOLUTION CHEST CT) TECHNIQUE: Standard high-resolution chest CT was performed both in inspiration and exhalation. Images were reconstructed using thin section 1 mm and more standard 3 mm sections. HISTORY: Dyspnea on exertion COMPARISON:January 13, 2025. FINDINGS: Pleura and lungs: The lungs are clear. Central airways: There is a tracheostomy in place. Lymph nodes: There is no lymphadenopathy in the chest. Heart and Great vessels: The heart is moderately-severely enlarged. There is coronary atherosclerosis. There is a left atrial appendage clip present.. There is no pericardial fluid collection. Osseous and body wall: There is multilevel disc degeneration of the thoracic spine. There are no concerning osteolytic or osteoblastic lesions. Procedure Note Johanne Schwartz MD - 04/26/2025 EXAMINATION: CT CHEST WITHOUT INTRAVENOUS CONTRAST (HIGH RESOLUTION CHEST CT) TECHNIQUE: Standard high-resolution chest CT was performed both in inspiration and exhalation. Images were reconstructed using thin section 1 mm and more standard 3 mm sections. HISTORY: Dyspnea on exertion COMPARISON:January 13, 2025. FINDINGS: Pleura and lungs: The lungs are clear. Central airways: There is a tracheostomy in place. Lymph nodes: There is no lymphadenopathy in the chest. Heart and Great vessels: The heart is moderately-severely enlarged. There is coronary atherosclerosis. There is a left atrial appendage clip present.. There is no pericardial fluid collection. Osseous and body wall: There is multilevel disc degeneration of the thoracic spine. There are no concerning osteolytic or osteoblastic lesions. IMPRESSION: 1. Clear lungs. 2. Moderate-severe cardiomegaly. Electronically signed by: Johanne Schwartz MD us Shwetha Lowe [employer] REPAIRER IMG CT PROCEDURES Final Res ult * TRANSTHORACIC ECHO (TTE) LIMITED/FOLLOW UP W LTD DOPPLER/CF W CONTRAST (04/09/2025 12:18 PM DIRECTOR OF BILLING) EF Mod BP 54 % CONS SCIMAGE Anatomical Region Laterality Modality Ultrasound 04/09/2025 11:4 3 AM DIRECTOR OF BILLING Narrative 04/09/2025 2:45 PM DIRECTOR OF BILLING [facility] Card[facility] [place] [address] Transthoracic Echocardiographic Report Patient Name: MEGAN SHEEHAN G : 1950 (75y 2m) Sex: M Study Date: 04/09/2025 11:43:22 Ht(Inch): 69 Wt(Lb): 192.02 BSA: 2.03 Burr Sander: Matty Mendes [facility] Location: [id number] Order Provider: SINAI ROSS Heart Rate: 135 BMI: 28.35 BP: 110 / 61 Ref Provider: SINAI ROSS PROCEDURES: Echocardiographic Report: Limited transthoracic 2D echo with contrast, includes spectral and tissue Doppler, color flow Doppler, and/or M-mode, when performed. Contrast: Contrast Enhancement was Employed: Due to suboptimal image quality with inadequate visualization of at least 2 of 16 LV wall segments in any view after initial imaging. Perflutren contrast was administered using the volume necessary to obtain adequate images. 0.6 ml Optison Administered, (2.4 ml wasted). INDICATIONS: Heart Failure. CONCLUSIONS: 1. Technically difficult study with many images of suboptimal quality. 2. Normal left ventricular size based on volume index. Normal LV wall thickness. Normal left ventricular systolic function. The Ejection Fraction (Liao's) is measured at 54 %. Cannot determine diastolic function or LA pressure. 3. RV dilation Moderate RV dilation. Mild right ventricular hypokinesis. 4. Mild tricuspid regurgitation. ATTESTATION: I have personally reviewed and interpreted this study without fellow or resident. DISCLAIMER: The study images and the final report will be retained in the patient chart by the [facility] for the legally required time period. This chart constitutes the legal record of any testing performed. FINDINGS: Left Ventricle: Normal left ventricular size based on volume index. Normal LV wall thickness. Normal left ventricular systolic function. The Ejection Fraction (Liao's) is measured at 54 %. Cannot determine diastolic function or LA pressure. Dyssynchronous septal motion consistent with intraventricular conduction delay or bundle branch block. No left ventricular thrombus visualized. Regional Wall Motion: Cannot rule out subtle segmental wall motion abnormalities. Right Ventricle: RV dilation Moderate RV dilation. Mild right ventricular hypokinesis. Left Atrium: The left atrium is not well visualized due to poor acoustic windows. Right Atrium: The right atrium is not well visualized due to poor acoustic windows. Mitral Valve: Mitral valve is not well visualized due to poor acoustic windows. No stenosis present. Aortic Valve: Aortic valve not well visualized due to poor acoustic windows. No aortic valve stenosis. Tricuspid Valve: Tricuspid valve is not well visualized due to poor acoustic windows. Mild tricuspid regurgitation. Pulmonic Valve: The pulmonic valve is not well visualized due to poor acoustic windows. Pericardium: The pericardium is not well visualized due to poor acoustic windows. Aorta: Aorta not well visualized due to poor acoustic windows. IVC: IVC not visualized due to poor acoustic windows. Rhythm: Normal Sinus rhythm was seen during the study. MEASUREMENTS: 2D/MM Value Range Doppler Value Range LVIDd 2D 4.5 cm [ 4.2 - 5.8 ] TR Peak Alexandro 2.1 m/s [ 1.0 - 2.8 ] LVIDs 2D 2.9 cm [ 2.5 - 4.0 ] TR Peak PG 18 mmHg IVSd 2D 0.7 cm [ 0.6 - 1.0 ] LVPWd 2D 0.9 cm [ 0.6 - 1.0 ] LV Thickness Ratio 0.8 LV Mass 2D 116.55 g LV Mass Index 2D 57.41 g/m2 RWT 0.40 EDV Mod BP 98 ml [ 62 - 150 ] LV EDV Index 48 ml/m2 ESV Mod BP 45 ml [ 21 - 61 ] EF Mod BP 54 % [ 52 - 72 ] Electronically Signed By: Félix Rivas MD 04/09/2025 14:45:24 DIRECTOR OF BILLING CC: Sinai Ross MD Procedure Note Félix Rivas MD - 04/09/2025 [facility] Card[facility] [place] [address] Transthoracic Echocardiographic Report Patient Name: MEGAN SHEEHAN G : 1950 (75y 2m) Sex: M Study Date: 04/09/2025 11:43:22 Ht(Inch): 69 Wt(Lb): 192.02 BSA: 2.03 Burr Sander: Matty Mendes [facility] Location: [id number] Order Provider:SINAI ROSS Heart Rate: 135 BMI: 28.35 BP: 110 / 61 Ref Provider: SINAI ROSS PROCEDURES: Echocardiographic Report: Limited transthoracic 2D echo with contrast,includes spectral and tissue Doppler, color flow Doppler, and/or M-mode, when performed. Contrast: Contrast Enhancement was Employed: Due to suboptimal imagequality with inadequate visualization of at least 2 of 16 LV wall segments in any viewafter initial imaging. Perflutren contrast was administered using the volume necessaryto obtain adequate images. 0.6 ml Optison Administered, (2.4 ml wasted). INDICATIONS: Heart Failure. CONCLUSIONS: 1. Technically difficult study with many images of suboptimal quality. 2. Normal left ventricular size based on volume index. Normal LV wallthickness. Normal left ventricular systolic function. The Ejection Fraction (Liao's) ismeasured at 54 %. Cannot determine diastolic function or LA pressure. 3. RV dilation Moderate RV dilation. Mild right ventricular hypokinesis. 4. Mild tricuspid regurgitation. ATTESTATION: I have personally reviewed and interpreted this study without fellow orresident. DISCLAIMER: The study images and the final report will be retained in the patientchart by the [facility] for the legally required time period. This chart constitutesthe legal record of any testing performed. FINDINGS: Left Ventricle: Normal left ventricular size based on volume index. NormalLV wall thickness. Normal left ventricular systolic function. The EjectionFraction (Liao's) is measured at 54 %. Cannot determine diastolic function or LA pressure.Dyssynchronous septal motion consistent with intraventricular conduction delay or bundlebranch block. No left ventricular thrombus visualized. Regional Wall Motion: Cannot rule out subtle segmental wall motionabnormalities. Right Ventricle: RV dilation Moderate RV dilation. Mild right ventricularhypokinesis. Left Atrium: The left atrium is not well visualized due to poor acousticwindows. Right Atrium: The right atrium is not well visualized due to poor acousticwindows. Mitral Valve: Mitral valve is not well visualized due to poor acousticwindows. No stenosis present. Aortic Valve: Aortic valve not well visualized due to poor acousticwindows. No aortic valve stenosis. Tricuspid Valve: Tricuspid valve is not well visualized due to pooracoustic windows. Mild tricuspid regurgitation. Pulmonic Valve: The pulmonic valve is not well visualized due to pooracoustic windows. Pericardium: The pericardium is not well visualized due to poor acousticwindows. Aorta: Aorta not well visualized due to poor acoustic windows. IVC: IVC not visualized due to poor acoustic windows. Rhythm: Normal Sinus rhythm was seen during the study. MEASUREMENTS: 2D/MM Value Range Doppler ValueRange LVIDd 2D 4.5 cm [ 4.2 - 5.8 ] TR Peak Alexandro 2.1 m/s[ 1.0 - 2.8 ] LVIDs 2D 2.9 cm [ 2.5 - 4.0 ] TR Peak PG 18 mmHg IVSd 2D 0.7 cm [ 0.6 - 1.0 ] LVPWd 2D 0.9 cm [ 0.6 - 1.0 ] LV Thickness Ratio 0.8 LV Mass 2D 116.55 g LV Mass Index 2D 57.41g/m2 RWT 0.40 EDV Mod BP 98 ml [ 62 - 150 ] LV EDV Index 48 ml/m2 ESV Mod BP 45 ml [ 21 - 61 ] EF Mod BP 54 % [ 52 - 72 ] Electronically Signed By: Félix Rivas MD 04/09/2025 14:45:24 DIRECTOR OF BILLING CC: Sinai Ross MD us Sinai Ross MD CV ECHO PROCEDURES Final Resul t * TRANSTHORACIC ECHO (TTE) COMPLETE W DOPPLER/CF WO CONTRAST (04/08/2025 4:56 PM DIRECTOR OF BILLING) Estimated EF 35-40 % CONS SCIMAGE EF Mod BP 40 % CONS SCIMAGE Anatomical Region Laterality Modality Ultrasound 04/08/2025 5:06 PM DIRECTOR OF BILLING Narrative 04/08/2025 5:29 PM DIRECTOR OF BILLING [facility] Card[facility] [place] [address] Transthoracic Echocardiographic Report Patient Name: MEGAN SHEEHAN G : 1950 (75y 2m) Sex: M Study Date: 04/08/2025 05:06:07 PM Ht(Inch): 69 Wt(Lb): 192.02 BSA: 2.03 Burr Sander: Matty Mendes RDCS Location: [id number] Order Provider: MARY MONTAGUE Heart Rate: 68 BMI: 28.35 Ref Provider: MARY MONTAGUE PROCEDURES: Echocardiographic Report: Transthoracic complete echo, 2D, spectral and tissue Doppler, color flow Doppler, M-mode. Additional Procedures: Myocardial strain imaging was performed. INDICATIONS: complication of [place] eval after cabg. CONCLUSIONS: 1. Normal left ventricular size based on volume index. Normal LV wall thickness. The Ejection Fraction (Liao's) is measured at 40 %. Left ventricular diastolic function is indeterminate. The average global longitudinal strain is abnormal. Paradoxical interventricular septal motion consistent with prior cardiac or thoracic surgery. 2. LV alba are not well assessed. 3. Normal right ventricular size. Mild right ventricular hypokinesis. 4. Severe tricuspid regurgitation. 5. Normal pericardium without pericardial effusion. 6. Normal aortic root size at sinuses of Valsalva. 7. IVC not visualized due to poor acoustic windows. 8. The Estimated PASP is : 22mmHg+RA pressure. ATTESTATION: I have personally reviewed and interpreted this study without fellow or resident. DISCLAIMER: The study images and the final report will be retained in the patient chart by the [facility] for the legally required time period. This chart constitutes the legal record of any testing performed. FINDINGS: Left Ventricle: Normal left ventricular size based on volume index. Normal LV wall thickness. Moderately depressed left ventricular systolic function. The Ejection Fraction (Liao's) is measured at 40 %. Left ventricular diastolic function is indeterminate. The average global longitudinal strain is abnormal. The LV global strain is: - 13.3 %. Paradoxical interventricular septal motion consistent with prior cardiac or thoracic surgery. Right Ventricle: Normal right ventricular size. Mild right ventricular hypokinesis. The right ventricular strain is more negative than -17%. Left Atrium: The left atrium is normal in size. Right Atrium: Right atrial dilatation. Mitral Valve: Normal mitral valve structure. No mitral regurgitation. No stenosis present. Aortic Valve: Normal trileaflet aortic valve. Mild aortic valve regurgitation. No aortic valve stenosis. The mean transaortic gradient is 3 mmHg. The aortic valve area by the continuity equation (using VTI) is 3.6 cm2. Aortic valve dimensionless index is 0.95. Tricuspid Valve: TV annulus is dilated. Severe tricuspid regurgitation. No tricuspid valve stenosis. Pulmonic Valve: Normal pulmonic valve structure. No pulmonic regurgitation. No pulmonic valve stenosis present. Pericardium: Normal pericardium without pericardial effusion. Aorta: Normal aortic root size at sinuses of Valsalva. IVC: IVC not visualized due to poor acoustic windows. PASP: The Estimated PASP is : 22+rap mmHg. MEASUREMENTS: 2D/MM Value Range Doppler Value Range LVIDd 2D 6.1 cm [ 4.2 - 5.8 ] AV Peak Alexandro 1.0 m/s [ 1.0 - 1.7 ] LVIDs 2D 4.1 cm [ 2.5 - 4.0 ] AV Peak PG 4 mmHg IVSd 2D 0.8 cm [ 0.6 - 1.0 ] AV Mean PG 3 mmHg LVPWd 2D 0.9 cm [ 0.6 - 1.0 ] AV VTI 21 cm LV Thickness Ratio 0.9 LVOT Peak Alexandro 1.0 m/s [ 0.7 - 1.1 ] LV FS 2D 32.67 % [ 25.00 - 43.00 ] LVOT Peak PG 4 mmHg LV Mass 2D 213.84 g LVOT Mean PG 2 mmHg LV Mass Index 2D 105.33 g/m2 LVOT VTI 20 cm RWT 0.30 LVOT Diam 2.2 cm EDV Mod BP 142 ml [ 62 - 150 ] JOEL VTI 3.6 cm2 LV EDV Index 70 ml/m2 LVOT/AV VTI 0.95 - Dimensionless index (DVI) ESV Mod BP 85 ml [ 21 - 61 ] MV E Peak Alexandro 0.92 m/s [ 0.60 - 1.30 ] EF Mod BP 40 % [ 52 - 72 ] MV A Peak Alexandro 0.31 m/s [ 1.00 - 1.20 ] Visually Estimated EF 35-40 % MV E/A 2.9 ratio [ 0.8 - 1.5 ] LV GLS -13.3 % [ -25.0 - -18.0 ] MV Decel [place] 595 LA Length 4C 5.8 cm MV Decel Time 154 msec [ 104 - 258 ] AoR Diam 2D 3.7 cm [ 3.1 - 3.7 ] TR Peak Alexandro 2.4 m/s [ 1.0 - 2.8 ] Ao Root Index 1.8 cm/m2 [ 1.0 - 2.0 ] TR Peak PG 23 mmHg PV Peak Alexandro 0.7 m/s [ 0.4 - 0.8 ] PV Peak PG 2 mmHg Electronically Signed By: Sinai Ross MD 04/08/2025 5:29:20 PM DIRECTOR OF BILLING Procedure Note Sinai Ross MD - 04/08/2025 [facility] [place] [address] Transthoracic Echocardiographic Report Patient Name: MEGAN SHEEHAN G : 1950 (75y 2m) Sex: M Study Date: 04/08/2025 05:06:07 PM Ht(Inch): 69 Wt(Lb): 192.02 BSA: 2.03 Burr Sander: Matty Mendes RDCS Location: [id number] Order Provider:MAJ EDDITed Heart Rate: 68 BMI: 28.35 Ref Provider: MARY MONTAGUE PROCEDURES: Echocardiographic Report: Transthoracic complete echo, 2D, spectral andtissue Doppler, color flow Doppler, M-mode. Additional Procedures: Myocardial strain imaging was performed. INDICATIONS: complication of [place] eval after cabg. CONCLUSIONS: 1. Normal left ventricular size based on volume index. Normal LV wallthickness. The Ejection Fraction (Liao's) is measured at 40 %. Left ventriculardiastolic function is indeterminate. The average global longitudinal strain is abnormal.Paradoxical interventricular septal motion consistent with prior cardiac or thoracicsurgery. 2. LV alba are not well assessed. 3. Normal right ventricular size. Mild right ventricular hypokinesis. 4. Severe tricuspid regurgitation. 5. Normal pericardium without pericardial effusion. 6. Normal aortic root size at sinuses of Valsalva. 7. IVC not visualized due to poor acoustic windows. 8. The Estimated PASP is : 22mmHg+RA pressure. ATTESTATION: I have personally reviewed and interpreted this study without fellow orresident. DISCLAIMER: The study images and the final report will be retained in the patientchart by the [facility] for the legally required time period. This chart constitutesthe legal record of any testing performed. FINDINGS: Left Ventricle: Normal left ventricular size based on volume index. NormalLV wall thickness. Moderately depressed left ventricular systolic function. TheEjection Fraction (Liao's) is measured at 40 %. Left ventricular diastolic function isindeterminate. The average global longitudinal strain is abnormal. The LV global strainis: - 13.3 %. Paradoxical interventricular septal motion consistent with prior cardiacor thoracic surgery. Right Ventricle: Normal right ventricular size. Mild right ventricularhypokinesis. The right ventricular strain is more negative than -17%. Left Atrium: The left atrium is normal in size. Right Atrium: Right atrial dilatation. Mitral Valve: Normal mitral valve structure. No mitral regurgitation. Nostenosis present. Aortic Valve: Normal trileaflet aortic valve. Mild aortic valveregurgitation. No aortic valve stenosis. The mean transaortic gradient is 3 mmHg. The aortic valvearea by the continuity equation (using VTI) is 3.6 cm2. Aortic valve dimensionlessindex is 0.95. Tricuspid Valve: TV annulus is dilated. Severe tricuspid regurgitation. Notricuspid valve stenosis. Pulmonic Valve: Normal pulmonic valve structure. No pulmonicregurgitation. No pulmonic valve stenosis present. Pericardium: Normal pericardium without pericardial effusion. Aorta: Normal aortic root size at sinuses of Valsalva. IVC: IVC not visualized due to poor acoustic windows. PASP: The Estimated PASP is : 22+rap mmHg. MEASUREMENTS: 2D/MM Value Range DopplerValue Range LVIDd 2D 6.1 cm [ 4.2 - 5.8 ] AV Peak Vel1.0 m/s [ 1.0 - 1.7 ] LVIDs 2D 4.1 cm [ 2.5 - 4.0 ] AV Peak PG4 mmHg IVSd 2D 0.8 cm [ 0.6 - 1.0 ] AV Mean PG3 mmHg LVPWd 2D 0.9 cm [ 0.6 - 1.0 ] AV VTI21 cm LV Thickness Ratio 0.9 LVOT Peak Vel1.0 m/s [ 0.7 - 1.1 ] LV FS 2D 32.67 % [ 25.00 - 43.00 ] LVOT Peak PG4 mmHg LV Mass 2D 213.84 g LVOT Mean PG2 mmHg LV Mass Index 2D 105.33 g/m2 LVOT VTI20 cm RWT 0.30 LVOT Diam2.2 cm EDV Mod BP 142 ml [ 62 - 150 ] JOEL VTI3.6 cm2 LV EDV Index 70 ml/m2 LVOT/AV VTI0.95 - Dimensionless index (DVI) ESV Mod BP 85 ml [ 21 - 61 ] MV E Peak Vel0.92 m/s [ 0.60 - 1.30 ] EF Mod BP 40 % [ 52 - 72 ] MV A Peak Vel0.31 m/s [ 1.00 - 1.20 ] Visually Estimated EF 35-40 % MV E/A2.9 ratio [ 0.8 - 1.5 ] LV GLS -13.3 % [ -25.0 - -18.0 ] MV DecelSlope 595 LA Length 4C 5.8 cm MV Decel Yfta514 msec [ 104 - 258 ] AoR Diam 2D 3.7 cm [ 3.1 - 3.7 ] TR Peak Vel2.4 m/s [ 1.0 - 2.8 ] Ao Root Index 1.8 cm/m2 [ 1.0 - 2.0 ] TR Peak PG23 mmHg PV Peak Alexandro 0.7 m/s [ 0.4 - 0.8 ] PV Peak PG 2 mmHg Electronically Signed By: Sinai Ross MD 04/08/2025 5:29:20 PM DIRECTOR OF BILLING Mary Montague MD CV ECHO PROCEDURES Final Resu lt * Infection Prevention Blanche auris PCR, surveillance Axilla/Groin (04/08/2025 12:51 PM DIRECTOR OF BILLING) Blanche auris DNA Not Detected Not Detected [facility] Comment: Interpretive Data Testing performed by [facility] using the Daquan flaquita 6800 Blanche auris assay. This assay detects DNA from Blanche auris using Real-Time PCR. This assay is laboratory developed and is not cleared by the [place] Food and Drug Administration. The performance characteristics have been verified by the [facility]. Axilla/Groin 04/08/2025 12:5 1 PM DIRECTOR OF BILLING 04/08/2025 1:13 PM DIRECTOR OF BILLING Phillip Gil MD LAB MICROBIOLOGY - GENERAL ORDER OVIDIO Final Result [facility] [place] [address] [facility] * MRI Brain W WO Contrast (04/06/2025 2:32 PM DIRECTOR OF BILLING) Anatomical Region Laterality Modality Head and Neck N/A Magnetic Resonan ce 04/06/2025 3:24 PM DIRECTOR OF BILLING Impressions 04/06/2025 10:27 PM DIRECTOR OF BILLING 1. No acute intracranial process. 2. A few scattered punctate microhemorrhages involving both frontal lobes and the left occipital lobe, which are nonspecific and appear new compared to 202, accounting for limitations in the previous exam. Dictated by: Charlie Moise MD The radiology attending physician has personally reviewed this study, and had reviewed and/or edited this written report and agrees with it. Electronically signed by: Modesto Kelly MD, PhD Narrative 04/06/2025 10:27 PM DIRECTOR OF BILLING EXAMINATION: Magnetic resonance imaging (MRI) of the brain and brainstem without and with contrast HISTORY: Altered mental status, encephalopathy. TECHNIQUE: Multiplanar multi-weighted MRI of the brain and brainstem was performed without and with intravenous contrast using the general brain protocol. Contrast information: 16 mL Gadoterate Meglumine IV COMPARISON: head CT 03/30/2025, brain MRI 03/28/2022 FINDINGS: The scalp and calvarium are normal. The superior sagittal sinus demonstrates normal venous flow. The corpus callosum is normal in shape and signal intensity. The posterior fossa is unremarkable. The pituitary and sella are normal. The brainstem and craniocervical junction are unremarkable. Diffusion weighted images reveal no hyperintensities to suggest acute cerebral infarction. Small microhemorrhages in both frontal lobes and left occipital lobe (4 total). These are not definitively seen on the report of prior brain MRI, which was motion degraded. Diffuse parenchymal volume loss with ex vacuo dilation of the ventricular system. Ventriculomegaly, possibly out of proportion to generalized volume loss. Mild periventricular and subcortical white matter T2/FLAIR hyperintensities, which are nonspecific, however most commonly reflect sequela of chronic microvascular ischemic disease. The paranasal sinuses are normal. The visualized portions of the mastoids are unremarkable. The orbits appear normal. Normal flow voids are demonstrated in the carotid arteries and basilar artery. Right lamina papyracea deformity. There is no abnormal contrast enhancement. Procedure Note Modesto Kelly MD PhD - 04/06/2025 EXAMINATION: Magnetic resonance imaging (MRI) of the brain and brainstem without and with contrast HISTORY: Altered mental status, encephalopathy. TECHNIQUE: Multiplanar multi-weighted MRI of the brain and brainstem was performed without and with intravenous contrast using the general brain protocol. Contrast information: 16 mL Gadoterate Meglumine IV COMPARISON: head CT 03/30/2025, brain MRI 03/28/2022 FINDINGS: The scalp and calvarium are normal. The superior sagittal sinus demonstrates normal venous flow. The corpus callosum is normal in shape and signal intensity. The posterior fossa is unremarkable. The pituitary and sella are normal. The brainstem and craniocervical junction are unremarkable. Diffusion weighted images reveal no hyperintensities to suggest acute cerebral infarction. Small microhemorrhages in both frontal lobes and left occipital lobe (4 total). These are not definitively seen on the report of prior brain MRI, which was motion degraded. Diffuse parenchymal volume loss with ex vacuo dilation of the ventricular system. Ventriculomegaly, possibly out of proportion to generalized volume loss. Mild periventricular and subcortical white matter T2/FLAIR hyperintensities, which are nonspecific, however most commonly reflect sequela of chronic microvascular ischemic disease. The paranasal sinuses are normal. The visualized portions of the mastoids are unremarkable. The orbits appear normal. Normal flow voids are demonstrated in the carotid arteries and basilar artery. Right lamina papyracea deformity. There is no abnormal contrast enhancement. IMPRESSION: 1. No acute intracranial process. 2. A few scattered punctate microhemorrhages involving both frontal lobes and the left occipital lobe, which are nonspecific and appear new compared to 2021, accounting for limitations in the previous exam. Dictated by: Charlie Moise MD The radiology attending physician has personally reviewed this study, and had reviewed and/or edited this written report and agrees with it. Electronically signed by: Modesto Kelly MD, PhD us Mary Montague MD [facility] MRI PROCEDURES Final Resu lt * Type and screen (04/04/2025 8:11 PM DIRECTOR OF BILLING) Becca, indirect Negative ABO Rh A Positive [facility] Blood 04/04/2025 8:11 PM DIRECTOR OF BILLING 04/04/2025 9:31 PM DIRECTOR OF BILLING Narrative [facility] - 04/04/2025 11:13 PM DIRECTOR OF BILLING Has the patient had Daratumumab or Isatuximab in the past 6 months?->Unknown Lisandra Aguilar MD LAB BLOOD BANK TEST OR DERABLES Final Result Performing Organization Address [facility] Co de Phone Number [facility] Department [place] [address] * Infection Prevention Blanche auris PCR, surveillance Axilla/Groin (04/04/2025 6:23 AM DIRECTOR OF BILLING) [facility] Blanche auris DNA Not Detected Not Detected [facility] Comment: Interpretive Data Testing performed by [facility] using the Daquan flaquita [employer] Blanche auris assay. This assay detects DNA from Blanche auris using Real-Time PCR. This assay is laboratory developed and is not cleared by the [facility] Food and Drug Administration. The performance characteristics have been verified by the [facility]. Axilla/Groin 04/04/2025 6:23 AM DIRECTOR OF BILLING 04/04/2025 6:49 AM DIRECTOR OF BILLING [facility] - 04/04/2025 1:38 PM DIRECTOR OF BILLING Order placed by O[facility] due to ring surveillance. Instant Order Generic Provider LAB MICROBIOLOGY - GENERAL ORDERABLES Final Result Performing Organization Address [facility] Co de Phone Number [facility] [place] [address] [facility] * (ABNORMAL) eGFR (04/03/2025 10:46 PM DIRECTOR OF BILLING) [facility] eGFR 57(L) >=60 mL/min/1. 73 m2 Comment: [...] interpretive data was last reviewed 2021. Blood 04/03/2025 10:4 6 PM DIRECTOR OF BILLING 04/03/2025 11:05 PM DIRECTOR OF BILLING us Mena Guillory MD LAB BLOOD ORDERABLES Final Resul t [facility] [place] [address] * Differential, auto (04/03/2025 10:46 PM DIRECTOR OF BILLING) Pathologist [facility] Neutrophil abs 3.65 1.50 - 6.50 K/cumm Imm gran abs 0.03 0.00 - 0.10 K/cumm [facility] Lymphocyte abs 1.09 0.80 - 3.30 K/cumm [facility] Monocyte abs 0.45 0.20 - 0.80 K/cumm [facility] Eosinophil abs 0.14 0.00 - 0.50 K/cumm [facility] Basophil abs 0.03 0.00 - 0.10 K/cumm [facility] Neutrophil pct 67.7 % [facility] Comment: Interpretive Data Percent cell count reference ranges are not reported, since discordance with absolute values may lead to misinterpretation of CBC data. Current Interpretive Data was last revised on 2017. Imm gran pct 0.6 % [facility] Comment: Interpretive Data Percent cell count reference ranges are not reported, since discordance with absolute values may lead to misinterpretation of CBC data. Current Interpretive Data was last revised on 2017. Lymphocyte pct 20.2 % [facility] Comment: Interpretive Data Percent cell count reference ranges are not reported, since discordance with absolute values may lead to misinterpretation of CBC data. Current Interpretive Data was last revised on 2017. Monocyte pct 8.3 % [facility] Comment: Interpretive Data Percent cell count reference ranges are not reported, since discordance with absolute values may lead to misinterpretation of CBC data. Current Interpretive Data was last revised on 2017. Eosinophil pct 2.6 % [facility] Comment: Interpretive Data Percent cell count reference ranges are not reported, since discordance with absolute values may lead to misinterpretation of CBC data. Current Interpretive Data was last revised on 2017. Basophil pct 0.6 % [facility] Comment: Interpretive Data Percent cell count reference ranges are not reported, since discordance with absolute values may lead to misinterpretation of CBC data. Current Interpretive Data was last revised on 2017. Blood 04/03/2025 10:4 6 PM DIRECTOR OF BILLING 04/03/2025 11:04 PM DIRECTOR OF BILLING us Mena Guillory MD LAB BLOOD ORDERABLES Final Resul t [facility] [place] [address] * (ABNORMAL) CBC with auto differential (04/03/2025 10:46 PM DIRECTOR OF BILLING) WBC 5.39 3.80 - 9.90 K/cumm Hgb 9.7(L) 13.0 - 17.5 g/dL [facility] Hct 29.7(L) 38.9 - 50.3 % [facility] Plt 236 150 - 400 K/cumm [facility] MPV 10.6 9.1 - 12.3 fL [facility] RBC 3.13(L) 4.30 - 5.80 M/cumm [facility] MCV 94.9 81.3 - 96.4 fL [facility] MCH 31.0 27.1 - 33.3 pg [facility] MCHC 32.7 32.3 - 35.7 g/dL [facility] RDW CV 15.0(H) 11.1 - 14.9 % [facility] RDW SD 52.0(H) 35.7 - 48.1 fL [facility] NRBC abs 0.00 0.00 - 0.01 K/cumm [facility] Blood 04/03/2025 10:4 6 PM DIRECTOR OF BILLING 04/03/2025 11:04 PM DIRECTOR OF BILLING Mena Guillory MD LAB BLOOD ORDERABLES Final Resul t Performing Organization Address [facility] Co de Phone Number [facility] [place] [address] * Phosphorus (04/03/2025 10:46 PM DIRECTOR OF BILLING) Pathologist [facility] Phosphorus, pl 3.7 2.3 - 4.5 mg/dL Blood 04/03/2025 10:4 6 PM DIRECTOR OF BILLING 04/03/2025 11:05 PM DIRECTOR OF BILLING Mena Guillory MD LAB BLOOD ORDERABLES Final Resul t Performing Organization Address [facility] de Phone Number [facility] [place] [address] * (ABNORMAL) Comprehensive metabolic panel (04/03/2025 10:46 PM DIRECTOR OF BILLING) [facility] Sodium 137 135 - 145 mmol/L Potassium, pl 3.7 3.3 - 4.9 mmol/L [facility] Chloride 106 97 - 110 mmol/L [facility] CO2 22 22 - 32 mmol/L [facility] Anion gap 9 2 - 15 mmol/L [facility] BUN 17 6 - 25 mg/dL [facility] Creatinine 1.31(H) 0.80 - 1.30 mg/dL [facility] Glucose 92 70 - 199 mg/dL [facility] Comment: Interpretive Data Fasting glucose >/= 126 [...] 2022. Calcium 8.5 8.5 - 10.3 mg/dL [facility] Bilirubin, total 0.5 0.1 - 1.2 mg/dL [facility] Protein, pl 6.3(L) 6.5 - 8.5 g/dL [facility] Albumin 3.0(L) 3.5 - 5.0 g/dL [facility] Alk phos 44 40 - 130 Units/L [facility] ALT 5(L) 7 - 55 Units/L [facility] AST 20 10 - 50 Units/L [facility] Blood 04/03/2025 10:4 6 PM DIRECTOR OF BILLING 04/03/2025 11:05 PM DIRECTOR OF BILLING us Mena Guillory MD LAB BLOOD ORDERABLES Final Resul t [facility] [place] [address] * (ABNORMAL) eGFR (04/02/2025 11:11 PM DIRECTOR OF BILLING) eGFR 55(L) >=60 mL/min/1. 73 m2 Comment: Interpretive Data [...] interpretive data was last reviewed 2021. Blood 04/02/2025 11:1 1 PM DIRECTOR OF BILLING 04/02/2025 11:30 PM DIRECTOR OF BILLING Mena Guillory MD LAB BLOOD ORDERABLES Final Resul t [facility] [place] [address] * Differential, auto (04/02/2025 11:11 PM DIRECTOR OF BILLING) Neutrophil abs 3.79 1.50 - 6.50 K/cumm Imm gran abs 0.02 0.00 - 0.10 K/cumm [facility] Lymphocyte abs 0.99 0.80 - 3.30 K/cumm [facility] Monocyte abs 0.52 0.20 - 0.80 K/cumm [facility] Eosinophil abs 0.08 0.00 - 0.50 K/cumm [facility] Basophil abs 0.03 0.00 - 0.10 K/cumm [facility] Neutrophil pct 69.7 % [facility] Comment: Interpretive Data Percent cell count reference ranges are not reported, since discordance with absolute values may lead to misinterpretation of CBC data. Current Interpretive Data was last revised on 2017. Imm gran pct 0.4 % [facility] Comment: Interpretive Data Percent cell count reference ranges are not reported, since discordance with absolute values may lead to misinterpretation of CBC data. Current Interpretive Data was last revised on 2017. Lymphocyte pct 18.2 % [facility] Comment: Interpretive Data Percent cell count reference ranges are not reported, since discordance with absolute values may lead to misinterpretation of CBC data. Current Interpretive Data was last revised on 2017. Monocyte pct 9.6 % [facility] Comment: Interpretive Data Percent cell count reference ranges are not reported, since discordance with absolute values may lead to misinterpretation of CBC data. Current Interpretive Data was last revised on 2017. Eosinophil pct 1.5 % [facility] Comment: Interpretive Data Percent cell count reference ranges are not reported, since discordance with absolute values may lead to misinterpretation of CBC data. Current Interpretive Data was last revised on 2017. Basophil pct 0.6 % [facility] Comment: Interpretive Data Percent cell count reference ranges are not reported, since discordance with absolute values may lead to misinterpretation of CBC data. Current Interpretive Data was last revised on 2017. Blood 04/02/2025 11:1 1 PM DIRECTOR OF BILLING 04/02/2025 11:30 PM DIRECTOR OF BILLING us Mena Guillory MD LAB BLOOD ORDERABLES Final Resul t [facility] [place] [address] * (ABNORMAL) CBC with auto differential (04/02/2025 11:11 PM DIRECTOR OF BILLING) WBC 5.43 3.80 - 9.90 K/cumm Hgb 9.8(L) 13.0 - 17.5 g/dL [facility] Hct 30.2(L) 38.9 - 50.3 % [facility] Plt 205 150 - 400 K/cumm [facility] MPV 10.6 9.1 - 12.3 fL [facility] RBC 3.18(L) 4.30 - 5.80 M/cumm [facility] MCV 95.0 81.3 - 96.4 fL [facility] MCH 30.8 27.1 - 33.3 pg [facility] MCHC 32.5 32.3 - 35.7 g/dL [facility] RDW CV 15.0(H) 11.1 - 14.9 % [facility] RDW SD 51.8(H) 35.7 - 48.1 fL [facility] NRBC abs 0.00 0.00 - 0.01 K/cumm [facility] Blood 04/02/2025 11:1 1 PM DIRECTOR OF BILLING 04/02/2025 11:30 PM DIRECTOR OF BILLING Mena Guillory MD LAB BLOOD ORDERABLES Final Resul t Performing Organization Address [facility] Co de Phone Number [facility] [place] [address] * Phosphorus (04/02/2025 11:11 PM DIRECTOR OF BILLING) Pathologist [facility] Phosphorus, pl 4.2 2.3 - 4.5 mg/dL Blood 04/02/2025 11:1 1 PM DIRECTOR OF BILLING 04/02/2025 11:30 PM DIRECTOR OF BILLING Mena Guillory MD LAB BLOOD ORDERABLES Final Resul t Performing Organization Address [facility] de Phone Number [facility] [place] [address] * (ABNORMAL) Comprehensive metabolic panel (04/02/2025 11:11 PM DIRECTOR OF BILLING) [facility] Sodium 137 135 - 145 mmol/L Potassium, pl 3.9 3.3 - 4.9 mmol/L [facility] Chloride 102 97 - 110 mmol/L [facility] CO2 24 22 - 32 mmol/L [facility] Anion gap 11 2 - 15 mmol/L [facility] BUN 16 6 - 25 mg/dL [facility] Creatinine 1.34(H) 0.80 - 1.30 mg/dL [facility] Glucose 88 70 - 199 mg/dL [facility] Comment: Interpretive Data Fasting glucose >/= 126 [...] 2022. Calcium 8.6 8.5 - 10.3 mg/dL [facility] Bilirubin, total 0.5 0.1 - 1.2 mg/dL [facility] Protein, pl 6.2(L) 6.5 - 8.5 g/dL [facility] Albumin 3.3(L) 3.5 - 5.0 g/dL [facility] Alk phos 39(L) 40 - 130 Units/L [facility] ALT 8 7 - 55 Units/L [facility] AST 20 10 - 50 Units/L [facility] Blood 04/02/2025 11:1 1 PM DIRECTOR OF BILLING 04/02/2025 11:30 PM DIRECTOR OF BILLING Mena Guillory MD LAB BLOOD ORDERABLES Final Resul t Performing Organization Address [facility]/ZIP Co de Phone Number [facility] [place] [address] * Infection Prevention Blanche auris PCR, surveillance Axilla/Groin (04/02/2025 10:40 AM DIRECTOR OF BILLING) Blanche auris DNA Not Detected Not Detected [facility] Comment: Interpretive Data Testing performed by [facility] using the Daquan flaquita 6800 Blanche auris assay. This assay detects DNA from Blanche auris using Real-Time PCR. This assay is laboratory developed and is not cleared by the [place] Food and Drug Administration. The performance characteristics have been verified by the [facility]. Axilla/Groin 04/02/2025 10:4 0 AM DIRECTOR OF BILLING 04/02/2025 11:06 AM DIRECTOR OF BILLING Narrative [facility] - 04/02/2025 11:05 PM DIRECTOR OF BILLING Order placed by O[facility] due to ring surveillance. us Instant Order Generic Provider LAB MICROBIOLOGY - GENERAL ORDERABLES Final Result Performing Organization Address [facility]/ZIP Co de Phone Number [facility] [place] [address] [facility] * (ABNORMAL) eGFR (04/01/2025 11:27 PM DIRECTOR OF BILLING) [facility] eGFR 56(L) >=60 mL/min/1. 73 m2 Comment: [...] interpretive data was last reviewed 2021. Blood 04/01/2025 11:2 7 PM DIRECTOR OF BILLING 04/02/2025 12:30 AM DIRECTOR OF BILLING us Mena Guillory MD LAB BLOOD ORDERABLES Final Resul t [facility] [place] [address] * (ABNORMAL) Differential, auto (04/01/2025 11:27 PM DIRECTOR OF BILLING) [facility] Neutrophil abs 3.86 1.50 - 6.50 K/cumm Imm gran abs 0.01 0.00 - 0.10 K/cumm [facility] Lymphocyte abs 0.75(L) 0.80 - 3.30 K/cumm [facility] Monocyte abs 0.56 0.20 - 0.80 K/cumm [facility] Eosinophil abs 0.09 0.00 - 0.50 K/cumm [facility] Basophil abs 0.02 0.00 - 0.10 K/cumm [facility] Neutrophil pct 72.9 % [facility] Comment: Interpretive Data Percent cell count reference ranges are not reported, since discordance with absolute values may lead to misinterpretation of CBC data. Current Interpretive Data was last revised on 2017. Imm gran pct 0.2 % [facility] Comment: Interpretive Data Percent cell count reference ranges are not reported, since discordance with absolute values may lead to misinterpretation of CBC data. Current Interpretive Data was last revised on 2017. Lymphocyte pct 14.2 % [facility] Comment: Interpretive Data Percent cell count reference ranges are not reported, since discordance with absolute values may lead to misinterpretation of CBC data. Current Interpretive Data was last revised on 2017. Monocyte pct 10.6 % [facility] Comment: Interpretive Data Percent cell count reference ranges are not reported, since discordance with absolute values may lead to misinterpretation of CBC data. Current Interpretive Data was last revised on 2017. Eosinophil pct 1.7 % [facility] Comment: Interpretive Data Percent cell count reference ranges are not reported, since discordance with absolute values may lead to misinterpretation of CBC data. Current Interpretive Data was last revised on 2017. Basophil pct 0.4 % [facility] Comment: Interpretive Data Percent cell count reference ranges are not reported, since discordance with absolute values may lead to misinterpretation of CBC data. Current Interpretive Data was last revised on 2017. Blood 04/01/2025 11:2 7 PM DIRECTOR OF BILLING 04/02/2025 12:25 AM DIRECTOR OF BILLING us Mena Guillory MD LAB BLOOD ORDERABLES Final [facility]ul t [facility] Department of Laboratories [place], [place] [id number] * (ABNORMAL) CBC with auto differential (04/01/2025 11:27 PM DIRECTOR OF BILLING) WBC 5.29 3.80 - 9.90 K/cumm Hgb 9.8(L) 13.0 - 17.5 g/dL [facility] Hct 28.7(L) 38.9 - 50.3 % [facility] Plt 195 150 - 400 K/cumm [facility] MPV 10.5 9.1 - 12.3 fL [facility] RBC 3.12(L) 4.30 - 5.80 M/cumm [facility] MCV 92.0 81.3 - 96.4 fL [facility] MCH 31.4 27.1 - 33.3 pg [facility] MCHC 34.1 32.3 - 35.7 g/dL [facility] RDW CV 15.0(H) 11.1 - 14.9 % [facility] RDW SD 51.3(H) 35.7 - 48.1 fL [facility] NRBC abs 0.00 0.00 - 0.01 K/cumm [facility] Blood 04/01/2025 11:2 7 PM DIRECTOR OF BILLING 04/02/2025 12:25 AM DIRECTOR OF BILLING Mena Guillory MD LAB BLOOD ORDERABLES Final Resul t Performing Organization Address [facility] Co de Phone Number [facility] [place] [address] * Phosphorus (04/01/2025 11:27 PM DIRECTOR OF BILLING) [facility] Phosphorus, pl 3.9 2.3 - 4.5 mg/dL Blood 04/01/2025 11:2 7 PM DIRECTOR OF BILLING 04/02/2025 12:30 AM DIRECTOR OF BILLING Mena Guillory MD LAB BLOOD ORDERABLES Final Resul t [facility] [place] [address] * (ABNORMAL) Comprehensive metabolic panel (04/01/2025 11:27 PM DIRECTOR OF BILLING) [facility] Sodium 133(L) 135 - 145 mmol/L Potassium, pl 3.8 3.3 - 4.9 mmol/L [facility] Chloride 98 97 - 110 mmol/L [facility] CO2 22 22 - 32 mmol/L [facility] Anion gap 13 2 - 15 mmol/L [facility] BUN 17 6 - 25 mg/dL [facility] Creatinine 1.33(H) 0.80 - 1.30 mg/dL [facility] Glucose 97 70 - 199 mg/dL [facility] Comment: Interpretive Data Fasting glucose >/= 126 [...] 2022. Calcium 8.4(L) 8.5 - 10.3 mg/dL [facility] Bilirubin, total 1.1 0.1 - 1.2 mg/dL [facility] Protein, pl 6.1(L) 6.5 - 8.5 g/dL [facility] Albumin 3.2(L) 3.5 - 5.0 g/dL [facility] Alk phos 37(L) 40 - 130 Units/L [facility] ALT 7 7 - 55 Units/L [facility] AST 19 10 - 50 Units/L [facility] Blood 04/01/2025 11:2 7 PM DIRECTOR OF BILLING 04/02/2025 12:30 AM DIRECTOR OF BILLING us Mena Guillory MD LAB BLOOD ORDERABLES Final Resul t [facility] [place] [address] * (ABNORMAL) eGFR (03/31/2025 9:03 PM DIRECTOR OF BILLING) eGFR 50(L) >=60 mL/min/1. 73 m2 Comment: [...] interpretive data was last reviewed 2021. Blood 03/31/2025 9:03 PM DIRECTOR OF BILLING 03/31/2025 9:18 PM DIRECTOR OF BILLING us Mena Guillory MD LAB BLOOD ORDERABLES Final Resul t [facility] [place] [address] * Differential, auto (03/31/2025 9:03 PM DIRECTOR OF BILLING) Neutrophil abs 4.33 1.50 - 6.50 K/cumm Imm gran abs 0.01 0.00 - 0.10 K/cumm [facility] Lymphocyte abs 0.85 0.80 - 3.30 K/cumm [facility] Monocyte abs 0.56 0.20 - 0.80 K/cumm [facility] Eosinophil abs 0.09 0.00 - 0.50 K/cumm [facility] Basophil abs 0.02 0.00 - 0.10 K/cumm [facility] Neutrophil pct 73.9 % [facility] Comment: Interpretive Data Percent cell count reference ranges are not reported, since discordance with absolute values may lead to misinterpretation of CBC data. Current Interpretive Data was last revised on 2017. Imm gran pct 0.2 % [facility] Comment: Interpretive Data Percent cell count reference ranges are not reported, since discordance with absolute values may lead to misinterpretation of CBC data. Current Interpretive Data was last revised on 2017. Lymphocyte pct 14.5 % [facility] Comment: Interpretive Data Percent cell count reference ranges are not reported, since discordance with absolute values may lead to misinterpretation of CBC data. Current Interpretive Data was last revised on 2017. Monocyte pct 9.6 % [facility] Comment: Interpretive Data Percent cell count reference ranges are not reported, since discordance with absolute values may lead to misinterpretation of CBC data. Current Interpretive Data was last revised on 2017. Eosinophil pct 1.5 % [facility] Comment: Interpretive Data Percent cell count reference ranges are not reported, since discordance with absolute values may lead to misinterpretation of CBC data. Current Interpretive Data was last revised on 2017. Basophil pct 0.3 % [facility] Comment: Interpretive Data Percent cell count reference ranges are not reported, since discordance with absolute values may lead to misinterpretation of CBC data. Current Interpretive Data was last revised on 2017. Blood 03/31/2025 9:03 PM DIRECTOR OF BILLING 03/31/2025 9:18 PM DIRECTOR OF BILLING us Mena Guillory MD LAB BLOOD ORDERABLES Final Resul t Performing Organization Address City/[facility]/ZIP Co de Phone Number [facility] [place] [address] * HIV 1/2 Antibody plus p24 Antigen Blood (03/31/2025 9:03 PM DIRECTOR OF BILLING) HIV 1/2 ab + p24 ag Nonreactive Nonreactive Comment:Nonreactive for HIV- 1 antigen and HIV-1/HIV-2 antibodies. No laboratory evidence of HIV infection. If acute HIV infection is suspected, consider testing for HIV-1 RNA. Current interpretive data was last revised on 22. Blood 03/31/2025 9:03 PM DIRECTOR OF BILLING 03/31/2025 9:18 PM DIRECTOR OF BILLING us Jean-Pierre Rosario MD LAB MICROBIOLOGY - GENERAL ORDERABLES Final Result [facility] [place] [address] * (ABNORMAL) CBC with auto differential (03/31/2025 9:03 PM DIRECTOR OF BILLING) [facility] WBC 5.86 3.80 - 9.90 K/cumm Hgb 10.1(L) 13.0 - 17.5 g/dL [facility] Hct 30.3(L) 38.9 - 50.3 % [facility] Plt 190 150 - 400 K/cumm [facility] MPV 10.6 9.1 - 12.3 fL [facility] RBC 3.18(L) 4.30 - 5.80 M/cumm [facility] MCV 95.3 81.3 - 96.4 fL [facility] MCH 31.8 27.1 - 33.3 pg [facility] MCHC 33.3 32.3 - 35.7 g/dL [facility] RDW CV 15.8(H) 11.1 - 14.9 % [facility] RDW SD 54.4(H) 35.7 - 48.1 fL [facility] NRBC abs 0.00 0.00 - 0.01 K/cumm [facility] Blood 03/31/2025 9:03 PM DIRECTOR OF BILLING 03/31/2025 9:18 PM DIRECTOR OF BILLING us Mena Guillory MD LAB BLOOD ORDERABLES Final Resul t [facility] [place] [address] * RPR Blood (03/31/2025 9:03 PM DIRECTOR OF BILLING) [facility] RPR Nonreactive Nonreactive Blood 03/31/2025 9:03 PM DIRECTOR OF BILLING 03/31/2025 9:18 PM DIRECTOR OF BILLING us Jean-Pierre Rosario MD LAB MICROBIOLOGY - GENERAL ORDERABLES Final Result Performing Organization Address City/[facility] Co de Phone Number [facility] [place] [address] * aPTT (03/31/2025 9:03 PM DIRECTOR OF BILLING) Pathologist [facility] aPTT 27 26 - 38 sec Comment: Interpretive Data Heparin therapeutic range: 66.0 - 100.0 seconds. Range based on correlation with therapeutic heparin activity range of 0.3 - 0.7 Units/mL. Blood 03/31/2025 9:03 PM DIRECTOR OF BILLING 03/31/2025 9:26 PM DIRECTOR OF BILLING us Lisandra Aguilar MD LAB BLOOD ORDERABLES F inal Result Performing Organization Address [facility] [place] [address] * Protime-INR (03/31/2025 9:03 PM DIRECTOR OF BILLING) Pathologist [facility] PT 13.1 10.2 - 13.5 sec INR 1.16 0.90 - 1.20 [facility] Comment: Interpretive data Oral anticoagulant therapeutic ranges: Venous thromboembolism prophylaxis or treatment: 2.0-3.0 CARDIOLOGY Standard range: 2.0-3.0 High-intensity range: 2.5-3.5 Refer to indication-specific guidelines for appropriate target ranges for prosthetic heart valve replacement. Current interpretive data was last revised on 2019. Blood 03/31/2025 9:03 PM DIRECTOR OF BILLING 03/31/2025 9:26 PM DIRECTOR OF BILLING Lisandra Aguilar MD LAB BLOOD ORDERABLES F inal Result Performing Organization Address [facility] [place] [address] * Type and screen (03/31/2025 9:03 PM DIRECTOR OF BILLING) Becca, indirect Negative ABO Rh A Positive [facility] Blood 03/31/2025 9:03 PM DIRECTOR OF BILLING 03/31/2025 9:19 PM DIRECTOR OF BILLING N[facility]ative [facility] 03/31/[facility]25 10:01 PM DIRECTOR OF BILLING Has the patient had Daratumumab or Isatuximab in the past 6 months?->Unknown Lisandra Aguilar MD LAB BLOOD BANK TEST OR DERABLES Final Result Performing Organization Address City/[facility]/ZIP Co de Phone Number [facility] [place] [address] * Uric acid (03/31/2025 9:03 PM DIRECTOR OF BILLING) Pathologist [facility] Uric acid 7.7 3.0 - 8.0 mg/dL Blood 03/31/2025 9:03 PM DIRECTOR OF BILLING 03/31/2025 9:18 PM DIRECTOR OF BILLING us Lisandra Aguilar MD LAB BLOOD ORDERABLES F inal Result Performing Organization Address City/[facility] Co de Phone Number [facility] [place] [address] * Phosphorus (03/31/2025 9:03 PM DIRECTOR OF BILLING) Pathologist [facility] Phosphorus, pl 4.2 2.3 - 4.5 mg/dL Blood 03/31/2025 9:03 PM DIRECTOR OF BILLING 03/31/2025 9:18 PM DIRECTOR OF BILLING Mena Guillory MD LAB BLOOD ORDERABLES Final Resul t Performing Organization Address City/[facility] Co de Phone Number [facility] [place] [address] * Lactate dehydrogenase (LD) (03/31/2025 9:03 PM DIRECTOR OF BILLING) Pathologist [facility] Lactate dehydrogenase (LDH) 190 100 - 250 Units/L Blood 03/31/2025 9:03 PM DIRECTOR OF BILLING 03/31/2025 9:18 PM DIRECTOR OF BILLING Lisandra Aguilar MD LAB BLOOD ORDERABLES F inal Result Performing Organization Address [facility] Co de Phone Number [facility] Department [place] [address] * Blood gas, venous (03/31/2025 9:03 PM DIRECTOR OF BILLING) pH, Venous 7.37 7.32 - 7.43 PCO2, Venous 40 40 - 50 mmHg [facility] PO2, Venous 31 mmHg [facility] Comment: Interpretive Data No Reference Range Established Current Interpretive Data was last revised on 2017. HCO3 Venous, Calculated 23 20 - 30 mmol/L [facility] BE, venous -2 mmol/L [facility] Comment: Interpretive Data No Reference Range Established Current Interpretive Data was last revised on 2017. Blood 03/31/2025 9:03 PM DIRECTOR OF BILLING 03/31/2025 9:13 PM DIRECTOR OF BILLING us Jean-Pierre Rosario MD LAB BLOOD ORDERABLE S Final Result Performing Organization Address [facility] de Phone Number [facility] Department [place] [address] * (ABNORMAL) Digoxin level (03/31/2025 9:03 PM DIRECTOR OF BILLING) Digoxin 0.3(L) 0.5 - 1.2 ng/mL Comment: Interpretive data The therapeutic range for digoxin varies by indication: Heart failure: 0.5 to 0.8 ng/mL Atrial fibrillation: less than 1.2 ng/mL Toxicity: >2.4. Normal or low digoxin does not rule out toxicity. Current interpretive data was last revised on 2024. Blood 03/31/2025 9:03 PM DIRECTOR OF BILLING 03/31/2025 9:18 PM DIRECTOR OF BILLING Jean-Pierre Rosraio MD LAB BLOOD ORDERABLE S Final Result Performing Organization Address City/State/[facility] Co de Phone Number [facility] [place] [address] * (ABNORMAL) Comprehensive metabolic panel (03/31/2025 9:03 PM DIRECTOR OF BILLING) Sodium 134(L) 135 - 145 mmol/L Potassium, pl 4.5 3.3 - 4.9 mmol/L [facility] Chloride 100 97 - 110 mmol/L [facility] CO2 23 22 - 32 mmol/L [facility] Anion gap 11 2 - 15 mmol/L [facility] BUN 19 6 - 25 mg/dL [facility] Creatinine 1.46(H) 0.80 - 1.30 mg/dL [facility] Glucose 97 70 - 199 mg/dL [facility] Comment: Interpretive Data Fasting glucose >/= 126 [...] 2022. Calcium 8.7 8.5 - 10.3 mg/dL [facility] Bilirubin, total 1.4(H) 0.1 - 1.2 mg/dL [facility] Protein, pl 6.6 6.5 - 8.5 g/dL [facility] Albumin 3.3(L) 3.5 - 5.0 g/dL [facility] Alk phos 39(L) 40 - 130 Units/L [facility] ALT 8 7 - 55 Units/L [facility] AST 16 10 - 50 Units/L [facility] Blood 03/31/2025 9:03 PM DIRECTOR OF BILLING 03/31/2025 9:18 PM DIRECTOR OF BILLING Mena Guillory MD LAB BLOOD ORDERABLES Final Resul t [facility] [place] [address] * (ABNORMAL) Drugs of Abuse Screen, Urine with Reflex Confirmation (03/31/2025 9:05 AM DIRECTOR OF BILLING) Amphetamine, ur Not Detected CutOff 500ng/mL Comment: Interpretive Data - Amphetamines: Samples containing greater than 500 ng/mL d-methamphetamine or other cross-reacting amphetamine compounds are reported as positive. Amphetamine immunoassays are subject to significant false positive rates due to cross-reactivity of non-amphetamine drugs. Confirmatory testing required for definitive results. Current Interpretive Data was last reviewed 2022. Barbiturates, ur Not Detected CutOff 200ng/mL [facility] Comment: Interpretive Data - Barbiturates: Samples containing greater than 200 ng/mL secobarbital or other cross-reacting barbiturate compounds are reported as positive. False positive and false negative results are possible. Confirmatory testing required for definitive results. Current Interpretive Data was last reviewed 2022. Benzodiazepines, ur Not Detected CutOff 100ng/mL [facility] Comment: Interpretive Data - Benzodiazepines: Samples containing greater than 100 ng/mL nordiazepam or other cross-reacting compounds are reported as positive. False positive and false negative results are possible. Confirmatory testing required for definitive results. Current Interpretive Data was last reviewed 2022. Cannabinoids, ur Screen Positive, presumptive (A) CutOff 50 ng/mL [facility] Comment: Interpretive Data - Cannabinoids: Samples containing greater than 50 ng/mL delta-9 THC -COOH or other cross- reacting compounds are reported as positive. False positive and false negative results are possible. Confirmatory testing required for definitive results. Current Interpretive Data was last reviewed 2022. Cocaine, ur Not Detected CutOff 150ng/mL [facility] Comment: Interpretive Data - Cocaine: Samples containing greater than 150 ng/mL benzoylecgonine or other cross- reacting compounds are reported as positive. False positive and false negative results are possible. Confirmatory testing required for definitive results. Current Interpretive Data was last reviewed 2022. Fentanyl, Ur Not Detected CutOff 5 ng/mL [facility] Comment: Interpretive Data - Fentanyl: Samples containing greater than 5 ng/mL norfentanyl, fentanyl, or other cross-reacting fentanyl compounds are reported as positive. False positive and false negative results are possible. Confirmatory testing required for definitive results. Current Interpretive Data was last reviewed 2023. Methadone, ur Not Detected CutOff 300ng/mL [facility] Comment: Interpretive Data - Methadone: Samples containing greater than 300 ng/mL d,l-methadone or other cross-reacting compounds are reported as positive. False positive and false negative results are possible. Confirmatory testing required for definitive results. Current Interpretive Data was last reviewed 2022. Opiates, ur Not Detected CutOff 300ng/mL [facility] Comment: Interpretive Data - Opiates: Samples containing greater than 300 ng/mL morphine or other cross-reacting compounds are reported as positive. False positive and false negative results are possible. Confirmatory testing required for definitive results. Current Interpretive Data was last reviewed 2022. Oxycodone, ur Not Detected CutOff 100ng/mL [facility] Comment: Interpretive Data - Oxycodone: Samples containing greater than 100 ng/mL oxycodone or other cross-reacting compounds are reported as positive. False positive and false negative results are possible. Confirmatory testing required for definitive results. Current Interpretive Data was last reviewed 2022. Phencyclidine, ur Not Detected CutOff 25 ng/mL [facility] Comment: Interpretive Data - Phencyclidine: Samples containing greater than 25 ng/mL phencyclidine or other cross-reacting compounds are reported as positive. False positive and false negative results are possible. Confirmatory testing required for definitive results. Current Interpretive Data was last reviewed 2022. Urine Creatinine 311 mg/dL [facility] Comment: Interpretive Data Urine Creatinine: < 10 mg/dL is extremely dilute = or > 10 but < 20 mg/dL is dilute = or > 20 mg/dL is normal Current Interpretive Data was last revised on 2017. Urine 03/31/2025 9:05 AM DIRECTOR OF BILLING 03/31/2025 1:22 PM DIRECTOR OF BILLING Narrative [facility] - 03/31/2025 1:52 PM DIRECTOR OF BILLING Drug Screening is performed by immunoassay for medical purposes. If positive, confirmation testing will be performed for amphetamines, benzodiazepines, cocaine, fentanyl, methadone, opiates, oxycodone, and phencyclidine. Jean-Pierre Rosario MD LAB URINE ORDERABLE S Final Result Performing Organization Address City/[facility]/ZIP Co de Phone Number [facility] [place] [address] * (ABNORMAL) Urinalysis reflex to microscopic (03/31/2025 9:05 AM DIRECTOR OF BILLING) Color, ur Yellow Yellow Clarity, ur Clear Clear [facility] Specific gravity, ur 1.026 1.003 - 1.030 [facility] pH, urine 5.5 [facility] Comment: Interpretive Data U rine pH is affected by diet, medications, systemic acid-base disturbances, and renal tubular function. pH may affect urinary stone formation. For example, urine pH below 6.0 may help reduce the tendency for calcium phosphate stones and pH greater than 6.0 may reduce the tendency for uric acid stone formation. Source: [facility] Current Interpretive Data was last revised on 2017 Protein, ur ql 1+(A) Negative [facility] Glucose, ur ql Negative Negative [facility] Ketones, ur Trace Negative [facility] Bilirubin, ur Negative Negative [facility] Blood, ur Negative Negative [facility] Urobilinogen, ur 2.0(A) <2.0 mg/dL [facility] Nitrite, ur Negative Negative [facility] Leukocyte esterase, ur Negative Negative [facility] UA reflex comment Reflex to microscopic UA will be performed. [facility] Urine 03/31/2025 9:05 AM DIRECTOR OF BILLING 03/31/2025 11:32 AM DIRECTOR OF BILLING Jean-Pierre Rosario MD LAB URINE ORDERABLE S Final Result Performing Organization Address City/[facility]/ZIP Co de Phone Number [facility] [place] [address] * (ABNORMAL) Urinalysis, microscopic only (03/31/2025 9:05 AM DIRECTOR OF BILLING) WBC, ur 0-5 0 - 5 /HPF RBC, ur 3-5(A) 0 - 2 /HPF [facility] Bacteria, ur Trace(A) [facility] Mucous, ur Present(A) [facility] Urine 03/31/2025 9:05 AM DIRECTOR OF BILLING 03/31/2025 11:32 AM DIRECTOR OF BILLING us Jean-Pierre Rosario MD LAB URINE ORDERABLE S Final Result [facility] [place] [address] * ECG 12 lead (03/31/2025 8:12 AM DIRECTOR OF BILLING) Ventricular Rate EKG/Min 91 BPM [facility] Atrial Rate 91 BPM [facility] [place]-Interval (MSEC) 202 ms [facility] QRS-Interval (MSEC) 178 ms [facility] QT-Interval (MSEC) 408 ms [facility] QTc 501 ms [facility] P Elliott 40 degrees [facility] R Elliott -40 degrees [facility] T Elliott 3 degrees [facility] Diagnosis Normal sinus rhythm Left axis deviation Right bundle branch block Inferior infarct , age undetermined Abnormal ECG When compared with ECG of 29-DEC-2024 10:15, Sinus rhythm has replaced Electronic ventricular pacemaker Confirmed by JENAE GRACE M.D ([id number]) on 04/01/2025 5:18:52 PM [facility] 03/31/2025 8:12 AM DIRECTOR OF BILLING 04/01/2025 5:18 PM DIRECTOR OF BILLING us Derek Katz MD ECG ORDERABLES Final Result Performing Organization Address [facility]/ZIP Co de Phone Number [facility] * (ABNORMAL) Differential, auto (03/30/2025 9:00 PM DIRECTOR OF BILLING) Neutrophil abs 7.89(H) 1.50 - 6.50 K/cumm Imm gran abs 0.05 0.00 - 0.10 K/cumm [facility] Lymphocyte abs 0.44(L) 0.80 - 3.30 K/cumm [facility] Monocyte abs 0.52 0.20 - 0.80 K/cumm [facility] Eosinophil abs 0.02 0.00 - 0.50 K/cumm [facility] Basophil abs 0.03 0.00 - 0.10 K/cumm [facility] Neutrophil pct 88.2 % [facility] Comment: Interpretive Data Percent cell count reference ranges are not reported, since discordance with absolute values may lead to misinterpretation of CBC data. Current Interpretive Data was last revised on 2017. Imm gran pct 0.6 % [facility] Comment: Interpretive Data Percent cell count reference ranges are not reported, since discordance with absolute values may lead to misinterpretation of CBC data. Current Interpretive Data was last revised on 2017. Lymphocyte pct 4.9 % [facility] Comment: Interpretive Data Percent cell count reference ranges are not reported, since discordance with absolute values may lead to misinterpretation of CBC data. Current Interpretive Data was last revised on 2017. Monocyte pct 5.8 % [facility] Comment: Interpretive Data Percent cell count reference ranges are not reported, since discordance with absolute values may lead to misinterpretation of CBC data. Current Interpretive Data was last revised on 2017. Eosinophil pct 0.2 % [facility] Comment: Interpretive Data Percent cell count reference ranges are not reported, since discordance with absolute values may lead to misinterpretation of CBC data. Current Interpretive Data was last revised on 2017. Basophil pct 0.3 % [facility] Comment: Interpretive Data Percent cell count reference ranges are not reported, since discordance with absolute values may lead to misinterpretation of CBC data. Current Interpretive Data was last revised on 2017. Blood 03/30/2025 9:00 PM DIRECTOR OF BILLING 03/30/2025 4:24 PM DIRECTOR OF BILLING us Mena Guillory MD LAB BLOOD ORDERABLES Final Resul t [facility] [place] [address] * (ABNORMAL) CBC with auto differential (03/30/2025 9:00 PM DIRECTOR OF BILLING) [facility] WBC 8.65 3.80 - 9.90 K/cumm Hgb 11.6(L) 13.0 - 17.5 g/dL [facility] Hct 34.4(L) 38.9 - 50.3 % [facility] Plt 214 150 - 400 K/cumm [facility] MPV 10.0 9.1 - 12.3 fL [facility] RBC 3.63(L) 4.30 - 5.80 M/cumm [facility] MCV 94.8 81.3 - 96.4 fL [facility] MCH 32.0 27.1 - 33.3 pg [facility] MCHC 33.7 32.3 - 35.7 g/dL [facility] RDW CV 16.1(H) 11.1 - 14.9 % [facility] RDW SD 56.8(H) 35.7 - 48.1 fL [facility] NRBC abs 0.00 0.00 - 0.01 K/cumm [facility] Blood 03/30/2025 9:00 PM DIRECTOR OF BILLING 03/30/2025 4:24 PM DIRECTOR OF BILLING us Mena Guillory MD LAB BLOOD ORDERABLES Final Resul t [facility] [place] [address] * (ABNORMAL) eGFR (03/30/2025 4:05 PM DIRECTOR OF BILLING) [facility] eGFR 50(L) >=60 mL/min/1. 73 m2 Comment: Interpretive Data Reference Interval Normal >/= 90 mL/min/1.73m2 Mildly decreased* 60 - 89 mL/min/1.73m2 Mildly to moderately decreased 45 - 59 mL/min/1.73m2 Moderately to severely decreased 30 - 44 mL/min/1.73m2 Severely decreased 15 - 29 mL/min/1.73m2 Kidney Failure < 15 mL/min/1.73m2 *Relative to young adult level Estimated glomerular filtration rate is determined by the 202 CKD-EPI equation recommended by the [employer] (A Unifying Approach to GFR Estimation: Recommendations of the NKF-ASK Task Force on Reassessing the Inclusion of Race in Diagnosing Kidney Disease, JASN 2021). The CKD-EPI equation should not be used for patients with unstable renal function and has not been validated in children and those over 70. Current interpretive data was last reviewed 2021. Blood 03/30/2025 4:05 PM DIRECTOR OF BILLING 03/30/2025 4:25 PM DIRECTOR OF BILLING us Mena Guillory MD LAB BLOOD ORDERABLES Final Resul t [facility] [place] [place] [address] * (ABNORMAL) eGFR (03/30/2025 4:05 PM DIRECTOR OF BILLING) eGFR 52(L) >=60 mL/min/1. 73 m2 Comment: [...] of Race in Diagnosing Kidney Disease, JASN 2021). The CKD-EPI equation should not be used for patients with unstable renal function and has not been validated in children and those over 70. Current interpretive data was last reviewed 2021. Blood 03/30/2025 4:05 PM DIRECTOR OF BILLING 03/30/2025 4:25 PM DIRECTOR OF BILLING us Mena Guillory MD LAB BLOOD ORDERABLES Final Resul t [facility] [place] [address] * (ABNORMAL) Differential, auto (03/30/2025 4:05 PM DIRECTOR OF BILLING) Neutrophil abs 8.13(H) 1.50 - 6.50 K/cumm Imm gran abs 0.03 0.00 - 0.10 K/cumm [facility] Lymphocyte abs 0.42(L) 0.80 - 3.30 K/cumm [facility] Monocyte abs 0.49 0.20 - 0.80 K/cumm [facility] Eosinophil abs 0.02 0.00 - 0.50 K/cumm [facility] Basophil abs 0.03 0.00 - 0.10 K/cumm [facility] Neutrophil pct 89.2 % [facility] Comment: Interpretive Data Percent cell count reference ranges are not reported, since discordance with absolute values may lead to misinterpretation of CBC data. Current Interpretive Data was last revised on 2017. Imm gran pct 0.3 % [facility] Comment: Interpretive Data Percent cell count reference ranges are not reported, since discordance with absolute values may lead to misinterpretation of CBC data. Current Interpretive Data was last revised on 2017. Lymphocyte pct 4.6 % [facility] Comment: Interpretive Data Percent cell count reference ranges are not reported, since discordance with absolute values may lead to misinterpretation of CBC data. Current Interpretive Data was last revised on 2017. Monocyte pct 5.4 % [facility] Comment: Interpretive Data Percent cell count reference ranges are not reported, since discordance with absolute values may lead to misinterpretation of CBC data. Current Interpretive Data was last revised on 2017. Eosinophil pct 0.2 % [facility] Comment: Interpretive Data Percent cell count reference ranges are not reported, since discordance with absolute values may lead to misinterpretation of CBC data. Current Interpretive Data was last revised on 2017. Basophil pct 0.3 % [facility] Comment: Interpretive Data Percent cell count reference ranges are not reported, since discordance with absolute values may lead to misinterpretation of CBC data. Current Interpretive Data was last revised on 2017. Blood 03/30/2025 4:05 PM DIRECTOR OF BILLING 03/30/2025 4:24 PM DIRECTOR OF BILLING us Mena Guillory MD LAB BLOOD ORDERABLES Final Resul t Performing Organization Address City/[facility]/ZIP Co de Phone Number [facility] [place] [address] * (ABNORMAL) Thyroid Function [place] (03/30/2025 4:05 PM DIRECTOR OF BILLING) [facility] TSH 4.22(H) 0.30 - 4.20 mcIUnit/mL Blood 03/30/2025 4:05 PM DIRECTOR OF BILLING 03/30/2025 4:25 PM DIRECTOR OF BILLING us Jean-Pierre Rosario MD LAB BLOOD ORDERABLE S Final Result Performing Organization Address City/[facility] Co de Phone Number [facility] Department [place] [address] * (ABNORMAL) CBC with auto differential (03/30/2025 4:05 PM DIRECTOR OF BILLING) [facility] WBC 9.12 3.80 - 9.90 K/cumm Hgb 11.6(L) 13.0 - 17.5 g/dL [facility] Hct 34.3(L) 38.9 - 50.3 % [facility] Plt 213 150 - 400 K/cumm [facility] MPV 9.9 9.1 - 12.3 fL [facility] RBC 3.59(L) 4.30 - 5.80 M/cumm [facility] MCV 95.5 81.3 - 96.4 fL [facility] MCH 32.3 27.1 - 33.3 pg [facility] MCHC 33.8 32.3 - 35.7 g/dL [facility] RDW CV 15.9(H) 11.1 - 14.9 % [facility] RDW SD 56.4(H) 35.7 - 48.1 fL [facility] NRBC abs 0.00 0.00 - 0.01 K/cumm [facility] Blood 03/30/2025 4:05 PM DIRECTOR OF BILLING 03/30/2025 4:24 PM DIRECTOR OF BILLING Mena Guillory MD LAB BLOOD ORDERABLES Final Resul t Performing Organization Address [facility] de Phone Number [facility] [place] [address] * aPTT (03/30/2025 4:05 PM DIRECTOR OF BILLING) aPTT 29 26 - 38 sec Comment: Interpretive Data Heparin therapeutic range: 66.0 - 100.0 seconds. Range based on correlation with therapeutic heparin activity range of 0.3 - 0.7 Units/mL. Blood 03/30/2025 4:05 PM DIRECTOR OF BILLING 03/30/2025 4:43 PM DIRECTOR OF BILLING Result [facility] Mena Guillory MD LAB BLOOD ORDERABLES Final Resul t Performing Organization Address [facility] de Phone Number [facility] [place] [address] * (ABNORMAL) Protime-INR (03/30/2025 4:05 PM DIRECTOR OF BILLING) PT 13.7(H) 10.2 - 13.5 sec INR 1.22(H) 0.90 - 1.20 [facility] Comment: Interpretive data Oral anticoagulant therapeutic ranges: Venous thromboembolism prophylaxis or treatment: 2.0-3.0 CARDIOLOGY Standard range: 2.0-3.0 High-intensity range: 2.5-3.5 Refer to indication-specific guidelines for appropriate target ranges for prosthetic heart valve replacement. Current interpretive data was last revised on 2019. Blood 03/30/2025 4:05 PM DIRECTOR OF BILLING 03/30/2025 4:43 PM DIRECTOR OF BILLING us Mena Guillory MD LAB BLOOD ORDERABLES Final Resul t Performing Organization Address [facility] Co de Phone Number [facility] [place] [address] * Type and screen (03/30/2025 4:05 PM DIRECTOR OF BILLING) ABO Rh A Positive Becca, indirect Negative [facility] Blood 03/30/2025 4:05 PM DIRECTOR OF BILLING 03/30/2025 4:35 PM DIRECTOR OF BILLING Narrative [facility] - 03/30/2025 5:27 PM DIRECTOR OF BILLING Has the patient had Daratumumab or Isatuximab in the past 6 months?->Unknown Mena Guillory MD LAB BLOOD BANK TEST ORDERABLES F inal Result Performing Organization Address [facility] de Phone Number [facility] [place] [address] * Uric acid (03/30/2025 4:05 PM DIRECTOR OF BILLING) Uric acid 7.3 3.0 - 8.0 mg/dL Blood 03/30/2025 4:05 PM DIRECTOR OF BILLING 03/30/2025 4:25 PM DIRECTOR OF BILLING Mena Guillory MD LAB BLOOD ORDERABLES Final Resul t Performing Organization Address [facility] de Phone Number [facility] [place] [address] * T4, free (03/30/2025 4:05 PM DIRECTOR OF BILLING) Free T4 1.08 0.90 - 1.70 ng/dL Blood 03/30/2025 4:05 PM DIRECTOR OF BILLING 03/30/2025 4:25 PM DIRECTOR OF BILLING Narrative [facility] - 03/31/2025 11:19 AM DIRECTOR OF BILLING This test was reflexed from a TSH result. Jean-Pierre Rosario MD LAB BLOOD ORDERABLE S Edited Result - Final Performing Organization Address City/[facility]/ZIP Co de Phone Number [facility] [place] [address] * Phosphorus (03/30/2025 4:05 PM DIRECTOR OF BILLING) Phosphorus, pl 3.4 2.3 - 4.5 mg/dL Blood 03/30/2025 4:05 PM DIRECTOR OF BILLING 03/30/2025 4:25 PM DIRECTOR OF BILLING Mena Guillory MD LAB BLOOD ORDERABLES Final Resul t Performing Organization Address [facility] [place] [address] * Phosphorus (03/30/2025 4:05 PM DIRECTOR OF BILLING) Phosphorus, pl 3.4 2.3 - 4.5 mg/dL Blood 03/30/2025 4:05 PM DIRECTOR OF BILLING 03/30/2025 4:25 PM DIRECTOR OF BILLING Mnea Guillory MD LAB BLOOD ORDERABLES Final Resul t Performing Organization Address [facility] Co de Phone Number [facility] [place] [address] * Magnesium (03/30/2025 4:05 PM DIRECTOR OF BILLING) Magnesium 1.8 1.4 - 2.5 mg/dL Blood 03/30/2025 4:05 PM DIRECTOR OF BILLING 03/30/2025 4:25 PM DIRECTOR OF BILLING Mena Guillory MD LAB BLOOD ORDERABLES Final Resul t Performing Organization Address [facility] Co de Phone Number [facility] [place], [place] [id number] * Lactate dehydrogenase (LD) (03/30/2025 4:05 PM DIRECTOR OF BILLING) Lactate dehydrogenase (LDH) 210 100 - 250 Units/L Blood 03/30/2025 4:05 PM DIRECTOR OF BILLING 03/30/2025 4:25 PM DIRECTOR OF BILLING Mena Guillory MD LAB BLOOD ORDERABLES Final Resul t Performing Organization Address [facility] de Phone Number [facility] [place] [address] * Hemoglobin A1c (03/30/2025 4:05 PM DIRECTOR OF BILLING) Pathologist [facility] Hgb A1C 5.1 4.0 - 5.6 % Estimated Average Glucose 100 mg/dL [facility] Comment: The ADA recommends reporting an estimated Average Glucose (eAG) with all Hemoglobin A1c results using the equation derived from a study of 507 normal and diabetic adults. Minority populations were underrepresented and children were not included. (Diabetes Care 2020; 43(S1): S66-S76). The eAG is not equivalent to a fasting glucose. Blood 03/30/2025 4:05 PM DIRECTOR OF BILLING 03/30/2025 4:25 PM DIRECTOR OF BILLING Result [facility] Mena Guillory MD LAB BLOOD ORDERABLES Final Resul t Performing Organization Address [facility] de Phone Number [facility] [place] [address] * Vitamin B12 (03/30/2025 4:05 PM DIRECTOR OF BILLING) Pathologist [facility] Vitamin B12 606 230 - 1,250 pg/mL Blood 03/30/2025 4:05 PM DIRECTOR OF BILLING 03/30/2025 4:25 PM DIRECTOR OF BILLING Jean-Pierre Rosario MD LAB BLOOD ORDERABLE S Final Result Performing Organization Address City/[facility] Co de Phone Number [facility] [place] [address] * (ABNORMAL) Comprehensive metabolic panel (03/30/2025 4:05 PM DIRECTOR OF BILLING) Sodium 138 135 - 145 mmol/L Potassium, pl 4.4 3.3 - 4.9 mmol/L [facility] Chloride 102 97 - 110 mmol/L [facility] CO2 22 22 - 32 mmol/L [facility] Anion gap 14 2 - 15 mmol/L [facility] BUN 15 6 - 25 mg/dL [facility] Creatinine 1.46(H) 0.80 - 1.30 mg/dL [facility] Glucose 105 70 - 199 mg/dL [facility] Comment: Interpretive Data Fasting glucose >/= 126 [...] 2022. Calcium 8.9 8.5 - 10.3 mg/dL [facility] Bilirubin, total 1.6(H) 0.1 - 1.2 mg/dL [facility] Protein, pl 7.1 6.5 - 8.5 g/dL [facility] Albumin 4.2 3.5 - 5.0 g/dL [facility] Alk phos 45 40 - 130 Units/L [facility] ALT 12 7 - 55 Units/L [facility] AST 19 10 - 50 Units/L [facility] Blood 03/30/2025 4:05 PM DIRECTOR OF BILLING 03/30/2025 4:25 PM DIRECTOR OF BILLING us Mena Guillory MD LAB BLOOD ORDERABLES Final Resul t [facility] [place] [address] * (ABNORMAL) Comprehensive metabolic panel (03/30/2025 4:05 PM DIRECTOR OF BILLING) Sodium 137 135 - 145 mmol/L Potassium, pl 4.4 3.3 - 4.9 mmol/L [facility] Chloride 102 97 - 110 mmol/L [facility] CO2 22 22 - 32 mmol/L [facility] Anion gap 13 2 - 15 mmol/L [facility] BUN 15 6 - 25 mg/dL [facility] Creatinine 1.41(H) 0.80 - 1.30 mg/dL [facility] Glucose 105 70 - 199 mg/dL [facility] Comment: Interpretive Data Fasting glucose >/= 126 [...] 2022. Calcium 8.9 8.5 - 10.3 mg/dL [facility] Bilirubin, total 1.6(H) 0.1 - 1.2 mg/dL [facility] Protein, pl 7.1 6.5 - 8.5 g/dL [facility] Albumin 4.1 3.5 - 5.0 g/dL [facility] Alk phos 45 40 - 130 Units/L [facility] ALT 12 7 - 55 Units/L [facility] AST 19 10 - 50 Units/L [facility] Blood 03/30/2025 4:05 PM DIRECTOR OF BILLING 03/30/2025 4:25 PM DIRECTOR OF BILLING us Mena Guillory MD LAB BLOOD ORDERABLES Final Resul t [facility] [place] [address] * CT Head WO Contrast (03/30/2025 1:50 PM DIRECTOR OF BILLING) Anatomical Region Laterality Modality Head and Neck N/A Computed Tomogra phy 03/30/2025 2:00 PM DIRECTOR OF BILLING Impressions 03/30/2025 2:01 PM DIRECTOR OF BILLING No acute intracranial hemorrhage, large edematous territory infarct, or hydrocephalus. Dictated by: Mykel Lu M.D. The radiology attending physician has personally reviewed this study, and had reviewed and/or edited this written report and agrees with it. Electronically signed by: Jyotsna Cho M.D. Narrative 03/30/2025 2:01 PM DIRECTOR OF BILLING EXAMINATION: CT head without contrast HISTORY: 75-year-old with reported mental status change, unknown cause. TECHNIQUE: CT of the head was performed with images acquired from skull base to vertex without intravenous contrast. COMPARISON: CT 03/04/2023. FINDINGS: Scattered ill-defined hypodensities in the periventricular and subcortical white matter are nonspecific, likely on the basis of chronic small vessel ischemic change. There is parenchymal volume loss. There are atherosclerotic calcifications of the intracranial vessels. There is no acute intracranial hemorrhage. Ventricles are of normal size and morphology. No mass effect or midline shift is present. The scruggs-white matter differentiation is normal. The visualized portions of the orbits are normal. The visualized portions of the mastoids are normal. The visualized portions of the paranasal sinuses are normal. No fractures are identified. Chronic right thomas papyracea fracture. Procedure Note Jyotsna Cho MD - 03/30/2025 EXAMINATION: CT head without contrast HISTORY: 75-year-old with reported mental status change, unknown cause. TECHNIQUE: CT of the head was performed with images acquired from skull base to vertex without intravenous contrast. COMPARISON: CT 03/04/2023. FINDINGS: Scattered ill-defined hypodensities in the periventricular and subcortical white matter are nonspecific, likely on the basis of chronic small vessel ischemic change. There is parenchymal volume loss. There are atherosclerotic calcifications of the intracranial vessels. There is no acute intracranial hemorrhage. Ventricles are of normal size and morphology. No mass effect or midline shift is present. The scruggs-white matter differentiation is normal. The visualized portions of the orbits are normal. The visualized portions of the mastoids are normal. The visualized portions of the paranasal sinuses are normal. No fractures are identified. Chronic right thomas papyracea fracture. IMPRESSION: No acute intracranial hemorrhage, large edematous territory infarct, or hydrocephalus. Dictated by: Mykel Lu M.D. The radiology attending physician has personally reviewed this study, and had reviewed and/or edited this written report and agrees with it. Electronically signed by: Jyotsna Cho M.D. Mena Guillory MD [facility] CT PROCEDURES Final Result * Respiratory pathogen panel Nasopharyngeal (03/30/2025 11:45 AM DIRECTOR OF BILLING) Pathologist [facility] Influenza A RNA Not Detected Not Detected Influenza B RNA Not Detected Not Detected [facility] RSV RNA Not Detected Not Detected [facility] COVID-19 RNA Not Detected Not Detected [facility] Coronavirus 229E RNA Not Detected Not Detected [facility] Coronavirus HKU1 RNA Not Detected Not Detected [facility] Coronavirus NL63 RNA Not Detected Not Detected [facility] Coronavirus OC43 RNA Not Detected Not Detected [facility] Adenovirus DNA Not Detected Not Detected [facility] Metapneumovirus RNA Not Detected Not Detected [facility] Rhinovirus/Enterov irus RNA Not Detected Not Detected [facility] Parainfluenza 1 RNA Not Detected Not Detected [facility] Parainfluenza 2 RNA Not Detected Not Detected [facility] Parainfluenza 3 RNA Not Detected Not Detected [facility] Parainfluenza 4 RNA Not Detected Not Detected [facility] B. pertussis DNA Not Detected Not Detected [facility] B. parapertussis DNA Not Detected Not Detected [facility] C. pneumoniae DNA Not Detected Not Detected [facility] M. pneumoniae DNA Not Detected Not Detected [facility] Nasopharyngeal 03/30/2025 11 :45 AM DIRECTOR OF BILLING 03/30/2025 12:36 PM DIRECTOR OF BILLING Narrative [facility] - 03/30/2025 1:52 PM DIRECTOR OF BILLING Is the Patient experiencing symptoms consistent with COVID?->Yes Surveillance testing for transplant patient?->No Interpretive Data The EZBOBArray Respiratory Panel (RP2.1) assay is a multiplexed real-time PCR based nucleic acid test capable of simultaneous qualitative detection and identification of multiple respiratory viral and bacterial nucleic acids, including SARS Coronavirus 2 (the causative agent of COVID-19). The following bacteria, viruses and virus subtypes can be identified using the FilmArray RP2.1 assay: Bordetella pertussis, Bordetella parapertussis, Chlamydia pneumoniae, Mycoplasma pneumoniae, Adenovirus, SARS Coronavirus 2, seasonal coronaviruses (Coronavirus HKU1, Coronavirus NL63, Coronavirus 229E, and Coronavirus OC43), Influenza A, Influenza A subtype H1, Influenza A subtype H3, Influenza A subtype 2009 H1, Influenza B, Metapneumovirus, Parainfluenza 1, Parainfluenza 2, Parainfluenza 3, Parainfluenza 4, RSV, Rhinovirus/Enterovirus. Due to the genetic similarity between human Rhinovirus and Enterovirus, the FilmArray RP2.1 assay cannot reliably differentiate them. Coronavirus OC43 may cross-react with some isolates of Coronavirus HKU1. A dual positive result may be due to cross-reactivity or may indicate a co- infection. The detection and identification of specific viral and bacterial nucleic acids from individuals exhibiting signs and symptoms of a respiratory infection aids in the diagnosis of respiratory infection if used in conjunction with other clinical and epidemiological information. The results of this test should not be used as the sole basis for diagnosis, treatment, or other management decisions. Negative results in the setting of a respiratory illness may be due to infection with pathogens that are not detected by this test. Positive results do not rule out infection/co-infection with other organisms. The agent(s) detected by the FilmArray RP2.1 may not be the definite cause of disease. Additional testing (lab, imaging, etc.) may be necessary when evaluating a patient with possible respiratory tract infection. The FilmArray RP2.1 assay has FDA clearance for testing of ART [employer] REPAIRER swabs. The performance of additional specimen types has been assessed by the performing laboratory. The performance characteristics of this assay have been determined by [facility] Molecular Infectious Disease Laboratory. Current interpretive data was last revised on 22. us Mena Guillory MD LAB MICROBIOLOGY - GENERAL ORDER OVIDIO Final Result [facility] Department [place] [address] * Blood culture Blood (03/30/2025 11:45 AM DIRECTOR OF BILLING) Report Final Report: No growth Blood 03/30/2025 11:4 5 AM DIRECTOR OF BILLING 03/30/2025 12:13 PM DIRECTOR OF BILLING Narrative [facility] - 04/03/2025 4:00 PM DIRECTOR OF BILLING Collection->Peripheral 1. Blood cultures are incubated for [...] performance characteristics have been verified by the [facility]biology [facility]. For questions about this culture, contact the Microbiology Laboratory at [phone]. Interpretive data was last revised on 24. Mena Guillory MD LAB MICROBIOLOGY - GENERAL ORDER OVIDIO Final Result [facility] [place] [address] * Blood culture Blood (03/30/2025 11:45 AM DIRECTOR OF BILLING) Report Final Report: No growth Blood 03/30/2025 11:4 5 AM DIRECTOR OF BILLING 03/30/2025 12:13 PM DIRECTOR OF BILLING Narrative [facility] - 04/03/2025 4:00 PM DIRECTOR OF BILLING Collection->Peripheral 1. Blood cultures are incubated for [...] performance characteristics have been verified by the [facility]. For questions about this culture, contact the Microbiology Laboratory at [phone]. Interpretive data was last revised on 24. Mena Guillory MD LAB MICROBIOLOGY - GENERAL ORDER OVIDIO Final Result Performing Organization Address City/[facility]/ZIP Co de Phone Number [facility] [place] [address] * POCT glucose (03/30/2025 7:16 AM DIRECTOR OF BILLING) [facility] Signature Glucose, POC 86 70 - 199 mg/dL Blood 03/30/2025 7:16 AM DIRECTOR OF BILLING 03/30/2025 7:16 AM DIRECTOR OF BILLING Mykel Mccauley DO LAB POCT ORDERABLES - DEVICE Final Result Performing Organization Address [facility]/ZIP Co de Phone Number [facility] [place] [address] * XR Chest 1 Vw Portable (03/30/2025 12:50 AM DIRECTOR OF BILLING) Anatomical Region Laterality Modality Body, Chest N/A Computed Radiogr aphy 03/30/2025 12:5 2 AM DIRECTOR OF BILLING Impressions 03/30/2025 8:11 AM DIRECTOR OF BILLING FINDINGS/IMPRESSION: Tracheostomy tube with tip in the mid thoracic trachea. Sternotomy wires overlie the chest. Left atrial appendage clip projects over the chest. Atelectasis at the lung bases. No pleural effusion or pneumothorax. Cardiac mediastinal silhouette is unchanged from prior. Dictated by: Nitish Martinez MD The radiology attending physician has personally reviewed this study, and had reviewed and/or edited this written report and agrees with it. Electronically signed by: Mundo Zhou M.D. Narrative 03/30/2025 8:11 AM DIRECTOR OF BILLING EXAMINATION: XR CHEST 1 VIEW HISTORY: SOB COMPARISON: Radiograph from 02/21/2025 Procedure Note Mundo Zhou MD - 03/30/2025 EXAMINATION: XR CHEST 1 VIEW HISTORY: SOB COMPARISON: Radiograph from 02/21/2025 IMPRESSION: FINDINGS/IMPRESSION: Tracheostomy tube with tip in the mid thoracic trachea. Sternotomy wires overlie the chest. Left atrial appendage clip projects over the chest. Atelectasis at the lung bases. No pleural effusion or pneumothorax. Cardiac mediastinal silhouette is unchanged from prior. Dictated by: Nitish Martinez MD The radiology attending physician has personally reviewed this study, and had reviewed and/or edited this written report and agrees with it. Electronically signed by: Mundo Zhou M.D. Chary Kaur MD IMG XR PROCEDURES Final Resul t * eGFR (03/29/2025 10:36 PM DIRECTOR OF BILLING) eGFR 61 >=60 mL/min/1. 73 m2 Comment: [...] interpretive data was last reviewed 2021. Blood 03/29/2025 10:3 6 PM DIRECTOR OF BILLING 03/29/2025 11:03 PM DIRECTOR OF BILLING us Bobby Mccloud MD LAB BLOOD ORDERABLES F inal Result [facility] [place] [address] * Differential, auto (03/29/2025 10:36 PM DIRECTOR OF BILLING) Neutrophil abs 5.57 1.50 - 6.50 K/cumm Imm gran abs 0.04 0.00 - 0.10 K/cumm [facility] Lymphocyte abs 1.39 0.80 - 3.30 K/cumm [facility] Monocyte abs 0.77 0.20 - 0.80 K/cumm [facility] Eosinophil abs 0.12 0.00 - 0.50 K/cumm [facility] Basophil abs 0.04 0.00 - 0.10 K/cumm [facility] Neutrophil pct 70.3 % [facility] Comment: Interpretive Data Percent cell count reference ranges are not reported, since discordance with absolute values may lead to misinterpretation of CBC data. Current Interpretive Data was last revised on 2017. Imm gran pct 0.5 % [facility] Comment: Interpretive Data Percent cell count reference ranges are not reported, since discordance with absolute values may lead to misinterpretation of CBC data. Current Interpretive Data was last revised on 2017. Lymphocyte pct 17.5 % [facility] Comment: Interpretive Data Percent cell count reference ranges are not reported, since discordance with absolute values may lead to misinterpretation of CBC data. Current Interpretive Data was last revised on 2017. Monocyte pct 9.7 % [facility] Comment: Interpretive Data Percent cell count reference ranges are not reported, since discordance with absolute values may lead to misinterpretation of CBC data. Current Interpretive Data was last revised on 2017. Eosinophil pct 1.5 % [facility] Comment: Interpretive Data Percent cell count reference ranges are not reported, since discordance with absolute values may lead to misinterpretation of CBC data. Current Interpretive Data was last revised on 2017. Basophil pct 0.5 % [facility] Comment: Interpretive Data Percent cell count reference ranges are not reported, since discordance with absolute values may lead to misinterpretation of CBC data. Current Interpretive Data was last revised on 2017. Blood 03/29/2025 10:3 6 PM DIRECTOR OF BILLING 03/29/2025 11:04 PM DIRECTOR OF BILLING Bobby Mccloud MD LAB BLOOD ORDERABLES F inal Result [facility] [place] [address] * (ABNORMAL) CBC with auto differential (03/29/2025 10:36 PM DIRECTOR OF BILLING) WBC 7.93 3.80 - 9.90 K/cumm Hgb 12.1(L) 13.0 - 17.5 g/dL [facility] Hct 36.5(L) 38.9 - 50.3 % [facility] Plt 232 150 - 400 K/cumm [facility] MPV 10.7 9.1 - 12.3 fL [facility] RBC 3.84(L) 4.30 - 5.80 M/cumm [facility] MCV 95.1 81.3 - 96.4 fL [facility] MCH 31.5 27.1 - 33.3 pg [facility] MCHC 33.2 32.3 - 35.7 g/dL [facility] RDW CV 16.2(H) 11.1 - 14.9 % [facility] RDW SD 56.4(H) 35.7 - 48.1 fL [facility] NRBC abs 0.00 0.00 - 0.01 K/cumm [facility] Blood Venous blood specimen / Unknown 03/29/2025 10:36 PM DIRECTOR OF BILLING 03/29/2025 11:04 PM DIRECTOR OF BILLING Bobby Mccloud MD LAB BLOOD ORDERABLES F inal Result Performing Organization Address City/[facility]/ZIP Co de Phone Number [facility] [place] [address] * Hemoglobin A1c (03/29/2025 10:36 PM DIRECTOR OF BILLING) Pathologist [facility] Hgb A1C 5.0 4.0 - 5.6 % Estimated Average Glucose 97 mg/dL [facility] Comment: The ADA recommends reporting an estimated Average Glucose (eAG) with all Hemoglobin A1c results using the equation derived from a study of 507 normal and diabetic adults. Minority populations were underrepresented and children were not included. (Diabetes Care 2020; 43(S1): S66-S76). The eAG is not equivalent to a fasting glucose. Blood 03/29/2025 10:3 6 PM DIRECTOR OF BILLING 03/29/2025 11:08 PM DIRECTOR OF BILLING Narrative [facility] - 03/30/2025 5:21 PM DIRECTOR OF BILLING reflex Lexus Lyons MD LAB BLOOD ORDERABLES Final Result Performing Organization Address City/[facility]/ZIP Co de Phone Number [facility] [place] [address] * (ABNORMAL) Comprehensive metabolic panel (03/29/2025 10:36 PM DIRECTOR OF BILLING) Sodium 131(L) 135 - 145 mmol/L Potassium, pl 4.7 3.3 - 4.9 mmol/L [facility] Comment:Hemolyzed; Potassium value may be falsely elevated by as much as 0.6-1.0 mmol/L. Suggest redraw and reanalysis. Chloride 100 97 - 110 mmol/L [facility] CO2 20(L) 22 - 32 mmol/L [facility] Anion gap 11 2 - 15 mmol/L [facility] BUN 13 6 - 25 mg/dL [facility] Creatinine 1.24 0.80 - 1.30 mg/dL [facility] Glucose 85 70 - 199 mg/dL [facility] Comment: Interpretive Data Fasting glucose >/= 126 [...] interpretive data was last revised 2022. Calcium 9.2 8.5 - 10.3 mg/dL [facility] Bilirubin, total 1.5(H) 0.1 - 1.2 mg/dL [facility] Protein, pl 7.3 6.5 - 8.5 g/dL [facility] Albumin 3.8 3.5 - 5.0 g/dL [facility] Alk phos 46 40 - 130 Units/L [facility] ALT 15 7 - 55 Units/L [facility] AST 39 10 - 50 Units/L [facility] Comment:Hemolyzed; result ma y be falsely elevated Blood Venous blood specimen / Unknown 03/29/2025 10:36 PM DIRECTOR OF BILLING 03/29/2025 11:03 PM DIRECTOR OF BILLING us Bobby Mccloud MD LAB BLOOD ORDERABLES F inal Result [facility] Department of Laboratories [place], [place] [id number] * [place] CRITICAL CARE ILL/INJURED PATIENT INIT 30-74 MIN (03/29/2025 4:33 PM DIRECTOR OF BILLING) Narrative Bobby Mccloud MD - 03/29/2025 4:33 PM DIRECTOR OF BILLING Bobby Mccloud MD 04/02/2025 4:33 PM Critical Care Performed by: Bobby Mccloud MD Authorized by: Bobby Mccloud MD Critical care provider statement: As reflected in the history, physical exam, orders, notes, and/or MDM, I was personally present while the patient was critically ill and provided critical care services for 40 minutes, excluding time involved in separately billable procedures. Critical care was necessary to treat or prevent imminent or life-threatening deterioration of the following condition(s): threatened airway Critical care was time spent by me providing the following: continuous telemetry, continuous pulse oximetry, interpretation of bedside monitors, imaging, and arterial/venous lab draws and serial bedside patient exams supplemental oxygen and acute airway management I provided emergent necessary critical care medicine services to this patient. I ordered and reviewed test results and/or imaging studies. I spent time discussing the management of this critically ill patient with consultants and the medical staff. I spent time discussing the management and therapeutic options for this critically ill patient with the patient themselves or with the appropriate designated surrogate decision-maker. I spent time documenting in the medical record. Bobby Mccloud MD IN CLINIC/BEDSIDE JUAN IVY Final Result * XR Chest Pa Lateral 2 Views [...] Electronically signed by: José Miguel Shore M.D. Parth Dalton MD IMG XR PROCEDURES Final Resul t * CT Chest PE (CTA) W Contrast (02/03/2025 2:50 PM CDT) Anatomical Region Laterality Modality Body N/A Computed Tomogra phy Historical Provider IM CT PROCEDURES Final R esult * CT Chest Abdomen Pelvis WO Contrast [...] The Non Critical results were discussed with ART OBJECTS REPAIRER Rastacy by Dr. Max Butts MD PHD on [...] by: Mundo Zhou M.D. Rosa Beltran NP IM CT PROCEDURES Final Resul t * Hepatitis C antibody Blood (02/17/2023 3:47 [...] GENERAL ORDERABLES Final Result Performing Organization Address City/State/ZIP Co ut Phone Number [facility] [address] [place] [address] * Stool DNA - Cologuard (10/20/2022 11:30 AM CDT) Pathologist [facility] Stool DNA - Cologuard Negative Negative [facility] (CLIA #:[id number]) Comment: NEGATIVE TEST RESULT. A negative Cologuard [...] Sneed et al, N Engl J Med 2014;370(14):0765-0201) The normal value (reference range) for this assay is negative. COLOGUARD RE-SCREENING RECOMMENDATION: Periodic colorectal cancer screening is an important part of preventive healthcare for asymptomatic individuals at average risk for colorectal cancer. Following a negative Cologuard result, the [place] Cancer Society and U.S. Multi-Society Task Force screening guidelines recommend a Cologuard re-screening interval of 3 years. References: [place] [employer] Society Guideline for Colorectal Cancer Screening: https://www.cancer.org/cancer/txquf-agxtuc-gaebhx/pmukpcdjp-mbxzvycka-rhzkvoj/ac s-rec ommendations.html.; Brian DAY, Tracie PEACE, Yan MCGINNIS, Colorectal Cancer Screening: Recommendations for Physicians and Patients from the U.S. Multi-Society Task Force on Colorectal Cancer Screening , Am J Gastroenterology 2017; 112:1854-2490. TEST DESCRIPTION: Composite algorithmic analysis of stool [...] (Moshe Harvey al, N Engl J Med 2014;370(14):2105-7248.) Cologuard may produce a false negative or false positive result (no colorectal cancer or precancerous polyp present at colonoscopy follow up). A negative Cologuard test result does not guarantee the absence of CRC or advanced adenoma (pre-cancer). The current Cologuard screening interval is every 3 years. ([place] Cancer Society and U.S. Multi-Society Task Force). Cologuard performance data in a 10,000 patient pivotal study using colonoscopy as the reference method can be accessed at the following location: [email or web address]/results. Additional description of the Cologuard test process, warnings and precautions can be found at www.[employer].com. Stool 10/20/2022 11:3 0 AM CDT 10/21/2022 9:26 PM CDT us Yaya Elizondo MD LAB BODY FLUIDS AND STOOLS OR DERABLES Final Result [facility] (CLIA #:[id number]) [address] [place] [address] from Last 3 Months or Most Recently Relevant to Health Maintenance Insurance MEDICARE [facility] MEDICARE SUPPLEMENT MEDICARE [facility] MEDICARE SUPPLEMENT MEDICARE [facility] OOS Advance Directives For more information, please contact: [phone] Documents on File Type Date Recorded Patient Pinking Machine Operator Expl anation ADVANCE DIRECTIVE 04/14/2022 6:41 AM [facility] DNR * Full Code (Latest Code Status on File) Date Activated Date Inactivated Comments 03/30/2025 1:13 PM 04/10/2025 8:15 PM * Full Code Date Activated Date Inactivated Comments 12/28/2024 2:48 PM 01/19/2025 7:45 PM * Full Code Date Activated Date Inactivated Comments 12/26/2024 4:53 PM 12/28/2024 2:48 PM * Full Code Date Activated Date Inactivated Comments 11/15/2024 1:13 PM 11/15/2024 8:50 PM * Full Code Date Activated Date Inactivated Comments 08/29/2024 4:39 PM 08/29/2024 10:25 PM Healthcare Agents on File Name Relationship Healthcare Agent Bernardino Tapia Health Care Agent Care Teams Ski Instructor Relationship Specialty Start Date End Date Jeferson Elena MD [address] [facility] [address] [place] [address] PCP - General Family Medicine 02/17/23 Mykel Mccauley DO [address] [facility] MEDICAL [facility]COL[facility]Y, [facility] [address] [place] [address] Medical Oncologist/Hematologis t Hematology and Oncology 08/28/21 Micheal Cabral MD [address] [facility] [address] [place] [address] Consulting Physician General Surgery 08/11/22 Artie Henderson MD [address] [facility] [address] [place] [address] Referring Physician Cardiology 02/17/23 Ana M Renteria MD [address] [facility] [address] [place] [address] Referring Physician Cardiology 11/21/23 [place] [address] [address] Consulting Physician Endocrinology Diabetes & Metabolism 11/21/23 [place] [address] [address] Nurse Practitioner Endocrinology Diabetes & Metabolism 11/21/23 Parth Dalton MD [id number] [place] [address] Surgeon Cardiothoracic Surgery 12/07/24
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
[2025-05-04] MEDS: LACTATED RINGERS 1,000 ML 999 ML IV CONT (00:53)
[2025-05-04 00:54] LABS: Alveolar/Arterial O2 Gradient 186.7 mmHg; Carboxyhemoglobin 0.6 % THb (0-2.0); Fractional Inspired Oxygen 60 %; HCO3 ABG 20.1 mEq/l (22.0-26.0); Methemoglobin ABG 0.3 %THb (0-1.5); Oxygen Content ABG 16.3 %vol (16.0-22.0); Oxygen Saturation ABG 99.4 % (95.0-100.0); PCO2 ABG 31.2 mmHg (35.0-45.0); PO2 ABG 206.8 mmHg (80.0-100.0); PO2 FiO2 Ratio Arterial Blood 3.45 %; Reduced Hemoglobin 0.5 %THb (0-5.0)
[2025-05-04 00:55] LABS: Liters per Minute 12.0 LPM; Modified Allen's Test Pass; Site Drawn RIGHT RADIAL
[2025-05-04 01:38] LABS: Influenza A QL RT-PCR Negative (Negative); Influenza B QL RT-PCR Negative (Negative); RSV RNA, RT-PCR Negative (Negative); SARS-CoV-2 RNA PCR Negative (Negative)
[2025-05-04] MEDS: PIPERACILLIN/TAZOBACTAM SOD 4.5 GM in SODIUM CHLORIDE 0.9% IV 100 ML 200 ML IVPB (03:06)
[2025-05-04] MEDS: LACTATED RINGERS 1,000 ML 125 ML IV CONT (03:44)
--- NOTE | 2025-05-04 05:50 | PC.NURSE ---
Report received from FELICITA Benito. Assumed care of patient at this time.
--- NOTE | 2025-05-04 08:32 | PC.NURSE ---
Patient linen changed and external catheter replaced. Patient A&Ox4. Patient repositioned. Call light and personal belongings in reach.
--- NOTE | 2025-05-04 08:35 | PC.NURSE ---
Breakfast tray ordered for patient
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
[2025-05-04 13:21] LABS: Hematocrit 30.9 % (42.0-52.0); Hemoglobin 10.0 g/dL (14.0-18.0); Immature Granulocyte Percent A 0.4 % (0-0.5); Lymphocytes Absolute Auto 0.69 K/mm3 (0.9-3.2); Mean Corpuscular HGB Conc 32.4 g/dl (32-36); Mean Corpuscular Hemoglobin 30.4 pg (26-34); Mean Corpuscular Volume 93.9 fl (80-100); Nucleated Red Blood Cells Absolute Auto 0.000 K/mm3 (0.0-0.012); Nucleated Red Blood Cells Perc 0.0 % (0.0-0.2); Platelet Count Result 147 k/mm3 (150-375); Red Blood Count 3.29 M/mm3 (4.6-6.20); White Blood Count 7.0 K/mm3 (4.5-10.0)
[2025-05-04 13:33] LABS: Albumin Level 3.5 g/dL (3.5-5.1); Anion Gap 6 mmol/L (4-12); Blood Urea Nitrogen 16 mg/dL (9-20); Calcium 8.8 mg/dL (8.4-10.2); Carbon Dioxide 23 mmol/L (22-30); Chloride 103 mmol/L (98-107); Estimated CRCL calculation 47 ml/min; Estimated Glomerular Filt Rate 58; Glucose 87 mg/dL (65-110); Magnesium 1.7 mg/dL (1.6-2.3); Potassium 4.1 mmol/L (3.4-5.0); Sodium 132 mmol/L (137-145)
[2025-05-04 13:35] LABS: Hemoglobin A1C 4.8 % (<5.7)
[2025-05-04 13:39] LABS: Troponin I 0.023 ng/mL (0.000-0.034)
[2025-05-04 13:49] LABS: CRP 19.4 mg/dL (<1.0)
[2025-05-04 13:57] LABS: Procalcitonin 0.1 ng/mL
[2025-05-04 14:10] LABS: Thyroid Stimulating Hormone Reflex 3.940 uIU/mL (0.465-4.68)
[2025-05-04] MEDS: HYDROCORTISONE SODIUM SUCCINATE 100 MG/2 ML VIAL 50 MG IV PUSH ×2 (14:25→21:26)
[2025-05-04] MEDS: THIAMINE HCL 200 MG/2 ML VIAL 100 MG IV PUSH (14:25)
[2025-05-04] MEDS: PIPERACILLIN/TAZOBACTAM SOD 3.375 GM in SODIUM CHLORIDE 0.9% IV 50 ML 100 ML IVPB ×2 (14:32→21:26)
[2025-05-04 14:49] LABS: Vitamin B12 408.0 pg/mL (239-931)
[2025-05-04] MEDS: IPRATROPIUM BR 0.02% INH SOLN 0.5 MG/2.5 ML VIAL INHALATION ×2 (15:22→20:53)
--- NOTE | 2025-05-04 17:01 | WPCEDHO ---
ED Hand Off Checklist All vitals saved:yes IV Site documented:yes All med administrations documented:yes, 1st LR is still running, that is why the next one has not been started yet. Triage Note Triage Note pt to ED via [facility] 05/03/25 23:01 with c/o MARRERO, N/V, SOB, and some confusion. pt was seen at [facility] 3 weeks ago with fluid overload. pt has hx of CHF. pt had open heart surgery in December. pt was 90% RA when EMS arrived on scene. pt sugar was 89 per MES. pt has a trach stoma. Allergies pembrolizumab (From [facility]) Allergy (Verified 02/18/25 12:25) Other pt states it caused encephalopathy Current Diagnoses Unspecified adrenocortical insufficiency (05/04/25) Acute combined systolic (congestive) and diastolic (congestive) heart failure (05/04/25) Pneumonia, unspecified organism (05/04/25) Chronic kidney disease, unspecified (05/04/25) Shortness of breath (05/04/25) Tracheostomy status (05/04/25) Family History (Last Reviewed 05/04/25 @ 12:26 by Sreekanth Crawford MD) Mother Heart disease Hypertension Father Heart disease Hypertension Active Medications including assessments/comments Hydrocortisone Sodium Succinate (Hydrocortisone Sodium Succinate 100 Mg/2 Ml Vial) 50 mg IV PUSH Q8HR [facility] Last Admin: 05/04/25 14:25 Dose: 50 mg Documented By: [facility] Lactated Ringer's (Lr - Lactated Ringers Iv) 1,000 mls @ 125 mls/hr IV CONT .Q8H [facility] Last Admin: 05/04/25 03:44 Dose: 125 mls/hr Documented By: [facility] Infusion/Titration Document 05/04/25 03:44 [facility] (Rec: 05/04/25 03:44 [facility] [id number]) Intake IV Site Peripheral Access Left Antecubital Container Volume 1,000 Waste Amount 0 Dosing Infusion Rate 125 Cumulative Dose Not Applicable Increase/Decrease Started Elapsed Time Elapsed Time ( 0m minutes) Piperacillin Sod/Tazobactam (Sod 3.375 gm/ Sodium Chloride) 50 mls @ 100 mls/hr IVPB Q6H [facility] Last Infusion: 05/04/25 16:02 Dose: Infused Documented By: [facility] Infusion/Titration Document 05/04/25 16:02 [facility] (Rec: 05/04/25 16:02 [facility] [id number]) Intake IV Site Peripheral Access Left Antecubital Intake 50 Cumulative Intake ( 50 bag) Cumulative Intake ( 50 Rx) Container Volume 0 Waste Amount 0 Dosing Infusion Rate 0 Cumulative Dose 3.375 Increase/Decrease Infused Elapsed Time Elapsed Time ( 1h 30m minutes) Admin: 05/04/25 14:32 Dose: 100 mls/hr Documented By: [facility] Infusion/Titration Document 05/04/25 14:32 [facility] (Rec: 05/04/25 14:32 [facility] [id number]) Intake IV Site Peripheral Access Left Antecubital Container Volume 50 Waste Amount 0 Dosing Infusion Rate 100 Increase/Decrease Started Elapsed Time Elapsed Time ( 0m minutes) Ipratropium [place] (Ipratropium Br 0.02% Inh Soln 0.5 Mg/2.5 Ml Vial) 0.5 mg INHALATION Q6HRT [facility] Last Admin: 05/04/25 15:22 Dose: 0.5 mg Documented By: MARGARITA VIRAMONTES Nebulizer Assessment Document 05/04/25 15:22 DDS (Rec: 05/04/25 15:22 DD [id number]) Updraft Nebulizer Treatment Method Trach Collar Treatment Tolerance Good Levalbuterol HCl (Levalbuterol Neb 1.25 Mg/3 Ml) 1.25 mg INHALATION Q6HRT [facility] Last Admin: 05/04/25 15:22 Dose: 1.25 mg Documented By: MARGARITA MAR Nebulizer Assessment Document 05/04/25 15:22 DDS (Rec: 05/04/25 15:22 [facility] [id number]) Updraft Nebulizer Treatment Method Trach Collar Treatment Tolerance Good Administered/Completed Medications Discontinued Medications Lactated Ringer's (Lr - Lactated Ringers Iv) 1,000 mls @ 999 mls/hr IV CONT .Q1H1M [facility] Stop: 05/04/25 01:16 Last Infusion: 05/04/25 03:00 Dose: Infused Documented By: Admin: 05/04/25 00:53 Dose: 999 mls/hr Documented By: JAYCE Piperacillin Sod/Tazobactam (Sod 4.5 gm/ Sodium Chloride) 100 mls @ 200 mls/hr IVPB ONCE STA Stop: 05/04/25 02:41 Last Infusion: 05/04/25 03:43 Dose: Infused Documented By: Admin: 05/04/25 03:06 Dose: 200 mls/hr Documented By: NATE Thiamine HCl (Thiamine Hcl 200 Mg/2 Ml Vial) 100 mg IV PUSH ONCE ONE Stop: 05/04/25 12:41 Last Admin: 05/04/25 14:25 Dose: 100 mg Documented By: [facility] Notes 05/04/25 08:35 Nurse Note by Della Cortes Breakfast tray ordered for patient Initialized on 05/04/25 08:35 - END OF NOTE 05/04/25 08:32 Nurse Note by Della Cortes Patient linen changed and external catheter replaced. Patient A&Ox4. Patient repositioned. Call light and personal belongings in reach. Initialized on 05/04/25 08:32 - END OF NOTE 05/04/25 05:50 Nurse Note by Lois Renner Report received from FELICITA Benito. Assumed care of patient at this time. Initialized on 05/04/25 05:50 - END OF NOTE Interventions/Assessments Cardiac Monitoring Start: 05/03/25 22:56 Freq: Status: Active Protocol: Document 05/03/25 23:18 [facility] (Rec: 05/03/25 23:18 [facility]CO [id number]) Stone Repairer Assessment Stone Repairer Yes Applied Pulse Rate (60-100) 110 H EKG Rythm Sinus Tachycardia IV / Saline Lock, Insert Start: 05/03/25 22:56 Freq: Status: Active Protocol: Document 05/03/25 23:09 [facility]CO (Rec: 05/03/25 23:09 ACO [id number]) IV Assessment Peripheral Access Left Antecubital IV Catheter Access Initiated Before Arrival IV Insertion Date 05/03/25 IV Insertion Time 23:09 Catheter Gauge 18 IV Site Assessment WNL IV Care and WNL Maintenance IV / Saline Lock, Insert Start: 05/03/25 23:10 Freq: STAT Status: Active Protocol: Document 05/03/25 23:17 ACO (Rec: 05/03/25 23:17 ACO [id number]) IV Assessment Peripheral Access Left Antecubital IV Catheter Access Continued PA: Cardiovascular Assessment Start: 05/03/25 22:56 Freq: Status: Active Protocol: Document 05/04/25 04:04 ACO (Rec: 05/04/25 04:04 ACO [id number]) Cardiovascular Assessment Cardiovascular None Symptoms Capillary Refill Bilateral Upper Extremity Capillary Refill Normal/Less than 2 Seconds PA: Respiratory Assessment Start: 05/03/25 22:56 Freq: Status: Active Protocol: Document 05/03/25 23:52 ACO (Rec: 05/03/25 23:53 ACO [id number]) Respiratory Assessment Symptoms Shortness of Breath at Rest,Shortness of Breath With Exertion Effort Short of Breath Pattern Tachypnea Depth Deep Chest Expansion Symmetrical Adult Capillary Normal/Less than 2 Seconds Refill Cough Description None Oxygen Delivery Oxygen Delivery Venturi Mask Oxygen Flow Rate 8 Pulse Oximetry (90- 100 100) Last Vital Signs Temperature 98.1 F 05/04/25 06:15 Pulse Rate 87 05/04/25 16:43 Respiratory Rate 20 05/04/25 16:43 Pulse Oximetry 95 05/04/25 16:43 Blood Pressure 118/74 05/04/25 16:43 Blood Pressure Mean 88 05/04/25 16:43 Oxygen Delivery High Flow Therapy with Trach Collar 05/04/25 15:35 Oxygen Flow Rate 30 05/04/25 15:35 Fraction of Inspired Oxygen 48 05/04/25 15:35 Weight 85 kg 05/03/25 23:01 Last Result - Abnormals Only RBC 3.29 M/mm3 (4.6-6.20) L 05/04/25 13:13 Hgb 10.0 g/dL (14.0-18.0) L 05/04/25 13:13 Hct 30.9 % (42.0-52.0) L 05/04/25 13:13 RDW 14.6 % (11.5-14.5) H 05/04/25 13:13 Plt Count 147 k/mm3 (150-375) L 05/04/25 13:13 Immature Gran % (Auto) 1.5 % (0-0.5) H 05/03/25 23:59 Neut % (Auto) 79.1 % (45.5-73.1) H 05/04/25 13:13 Lymph % (Auto) 9.9 % (18.3-44.2) L 05/04/25 13:13 Lymph # (Auto) 0.69 K/mm3 (0.9-3.2) L 05/04/25 13:13 Abs Immat Gran (auto) 0.11 K/mm3 (0.00-0.031) H 05/03/25 23:59 ABG pCO2 31.2 mmHg (35.0-45.0) L 05/04/25 00:45 ABG pO2 206.8 mmHg (80.0-100.0) H 05/04/25 00:45 ABG HCO3 20.1 mEq/l (22.0-26.0) L 05/04/25 00:45 Total Hemoglobin 11.4 g/dL (12.0-18.0) L 05/04/25 00:45 Sodium 132 mmol/L (137-145) L 05/04/25 13:13 Carbon Dioxide 21 mmol/L (22-30) L 05/03/25 23:59 Estimated GFR 58 (59-) L 05/04/25 13:13 C-Reactive Protein 19.4 mg/dL (<1.0) H 05/04/25 13:13 NT-Pro-B Natriuret Pep 952 pg/mL (19.9-100) H 05/03/25 23:59 Total Protein 6.2 g/dL (6.3-8.2) L 05/03/25 23:59 Albumin 3.4 g/dL (3.5-5.1) L 05/03/25 23:59 Most Recent CIWA Score CIWA Total Score 1 05/04/25 16:42 Most Recent Suicide Severity Rating Suicide Severity Rating NO RISK INDICATED 05/03/25 23:01
[2025-05-04 19:08] LABS: MRSA (PCR) NOT DETECTED (NOT DETECTE)
[2025-05-05] VITALS (14 sets, daily range): BP systolic 105–113; BP diastolic 52–78; PULSE 79–90; RESP 14–20; TEMP 36–36.7; O2SAT 94–100
[2025-05-05] MEDS: PIPERACILLIN/TAZOBACTAM SOD 3.375 GM in SODIUM CHLORIDE 0.9% IV 50 ML 100 ML IVPB ×4 (02:01→18:33)
[2025-05-05] MEDS: IPRATROPIUM BR 0.02% INH SOLN 0.5 MG/2.5 ML VIAL INHALATION ×3 (02:25→19:38)
[2025-05-05] MEDS: HYDROCORTISONE SODIUM SUCCINATE 100 MG/2 ML VIAL 50 MG IV PUSH (06:03)
[2025-05-05 06:35] LABS: Hematocrit 28.6 % (42.0-52.0); Hemoglobin 9.1 g/dL (14.0-18.0); Immature Granulocyte Percent A 0.4 % (0-0.5); Lymphocytes Absolute Auto 0.41 K/mm3 (0.9-3.2); Mean Corpuscular HGB Conc 31.8 g/dl (32-36); Mean Corpuscular Hemoglobin 30.0 pg (26-34); Mean Corpuscular Volume 94.4 fl (80-100); Nucleated Red Blood Cells Absolute Auto 0.000 K/mm3 (0.0-0.012); Nucleated Red Blood Cells Perc 0.0 % (0.0-0.2); Platelet Count Result 160 k/mm3 (150-375); Red Blood Count 3.03 M/mm3 (4.6-6.20); White Blood Count 4.6 K/mm3 (4.5-10.0)
[2025-05-05 07:00] LABS: Alanine Aminotransferase 11 U/L (6-50); Albumin Level 3.3 g/dL (3.5-5.1); Alkaline Phosphatase 44 U/L (38-126); Anion Gap 8 mmol/L (4-12); Aspartate Amino Transferase 22 U/L (17-59); Bilirubin,Total 0.7 mg/dL (0.2-1.3); Blood Urea Nitrogen 17 mg/dL (9-20); Calcium 8.5 mg/dL (8.4-10.2); Carbon Dioxide 21 mmol/L (22-30); Chloride 105 mmol/L (98-107); Estimated CRCL calculation 46 ml/min; Estimated Glomerular Filt Rate 54; Glucose 120 mg/dL (65-110); Magnesium 1.8 mg/dL (1.6-2.3); Potassium 3.8 mmol/L (3.4-5.0); Sodium 134 mmol/L (137-145); Total Protein 6.1 g/dL (6.3-8.2)
[2025-05-05] MEDS: THIAMINE HCL 200 MG/2 ML VIAL 100 MG IV PUSH (08:20)
[2025-05-05] MEDS: DOCUSATE SODIUM 100 MG CAPSULE PO (10:10)
[2025-05-05] MEDS: ATORVASTATIN 40 MG TABLET 80 MG PO (10:10)
[2025-05-05] MEDS: ASPIRIN 81 MG CHEWABLE TABLET 162 MG PO (10:10)
[2025-05-05] MEDS: ESCITALOPRAM OXALATE 10 MG TABLET PO (10:10)
[2025-05-05] MEDS: METOPROLOL TARTRATE 6.25 MG TABLET PO ×2 (10:10→22:13)
[2025-05-05] MEDS: PANTOPRAZOLE 40 MG TABLET PO (10:10)
[2025-05-05] MEDS: LACTATED RINGERS 1,000 ML 125 ML IV CONT (10:11)
[2025-05-05] MEDS: ENOXAPARIN 40 MG/0.4 ML SYRINGE SUB-Q (10:11)
[2025-05-05] MEDS: ACETAMINOPHEN 325 MG TABLET 650 MG PO (10:15)
--- NOTE | 2025-05-05 12:07 | PCRCNOTE ---
Window of time for administration has passed. See next scheduled administration.
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
[2025-05-05] MEDS: DOXYCYCLINE HYCLATE 100 MG TABLET PO ×2 (13:00→22:13)
[2025-05-05] MEDS: HYDROCORTISONE SODIUM SUCCINATE 100 MG/2 ML VIAL 25 MG IV PUSH ×2 (13:00→22:13)
[2025-05-05] MEDS: FOLIC ACID 1 MG TABLET PO (13:00)
--- NOTE | 2025-05-05 13:39 | PCSTNOTE ---
ST informed patient that an MBSS will be scheduled for completion tomorrow due to no radiologist being on site today, 05/05. Patient verbalized understanding and is in agreement with this plan. Thank you.
[2025-05-06] VITALS: PULSE 87
[2025-05-06] MEDS: PIPERACILLIN/TAZOBACTAM SOD 3.375 GM in SODIUM CHLORIDE 0.9% IV 50 ML 100 ML IVPB ×2 (00:12→06:32)
[2025-05-06 05:52] VITALS: BP 124/92; PULSE 85; RESP 18; TEMP 36.7; O2SAT 97
[2025-05-06] MEDS: HYDROCORTISONE SODIUM SUCCINATE 100 MG/2 ML VIAL 25 MG IV PUSH (06:32)
[2025-05-06 06:42] LABS: Hematocrit 28.8 % (42.0-52.0); Hemoglobin 9.1 g/dL (14.0-18.0); Mean Corpuscular HGB Conc 31.6 g/dl (32-36); Mean Corpuscular Hemoglobin 30.3 pg (26-34); Mean Corpuscular Volume 96.0 fl (80-100); Platelet Count Result 169 k/mm3 (150-375); Red Blood Count 3.00 M/mm3 (4.6-6.20); White Blood Count 4.5 K/mm3 (4.5-10.0)
[2025-05-06 07:06] LABS: Anion Gap 9 mmol/L (4-12); Blood Urea Nitrogen 18 mg/dL (9-20); Calcium 8.4 mg/dL (8.4-10.2); Carbon Dioxide 21 mmol/L (22-30); Chloride 108 mmol/L (98-107); Estimated CRCL calculation 44 ml/min; Estimated Glomerular Filt Rate 52; Glucose 99 mg/dL (65-110); Potassium 3.9 mmol/L (3.4-5.0); Sodium 138 mmol/L (137-145)
[2025-05-06 09:00] VITALS: PULSE 88
[2025-05-06] MEDS: DOXYCYCLINE HYCLATE 100 MG TABLET PO (09:00)
[2025-05-06] MEDS: ESCITALOPRAM OXALATE 10 MG TABLET PO (09:00)
[2025-05-06] MEDS: METOPROLOL TARTRATE 6.25 MG TABLET PO (09:00)
[2025-05-06] MEDS: ASPIRIN 81 MG CHEWABLE TABLET 162 MG PO (09:00)
[2025-05-06] MEDS: PANTOPRAZOLE 40 MG TABLET PO (09:02)
[2025-05-06] MEDS: THIAMINE HCL 100 MG TABLET PO (09:02)
[2025-05-06] MEDS: ATORVASTATIN 40 MG TABLET 80 MG PO (09:02)
[2025-05-06] MEDS: FOLIC ACID 1 MG TABLET PO (09:02)
[2025-05-06] MEDS: ENOXAPARIN 40 MG/0.4 ML SYRINGE SUB-Q (09:02)
[2025-05-06] MEDS: DOCUSATE SODIUM 100 MG CAPSULE PO (09:02)
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
--- NOTE | 2025-05-06 10:54 | PCRCNOTE ---
Window of time for administration has passed. See next scheduled administration.
[2025-05-06 14:00] VITALS: BP 119/87; PULSE 81; RESP 18; TEMP 36.7; O2SAT 98
[2025-05-06 14:31] VITALS: PULSE 71; RESP 20; O2SAT 97
[2025-05-06] MEDS: IPRATROPIUM BR 0.02% INH SOLN 0.5 MG/2.5 ML VIAL INHALATION (14:31)
[2025-05-06 14:47] VITALS: PULSE 72; RESP 20
--- NOTE | 2025-05-06 15:53 | PC.NURSE ---
Patient suctioning himself at the bedside. States this is how he does it at home.
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
== END 2025-05-06 17:40 | disposition home or self-care (01) | DRG 193 ==
LOC: ANHED 05-04 00:37 → ANH3MEDSUR 05-04 03:17
PROVIDERS: Admitting Provider Internal Medicine; Emergency Provider Student in an Organized Health Care Education/Training Program; PCP Family Medicine; Visit Provider Internal Medicine
DX: J18.9 Pneumonia, unspecified organism (principal); J96.01 Acute respiratory failure with hypoxia; I13.0 Hypertensive heart and chronic kidney disease with heart failure and stage 1 through stage 4 chronic kidney disease, or unspecified chronic kidney disease; I50.22 Chronic systolic (congestive) heart failure; I42.9 Cardiomyopathy, unspecified; E27.40 Unspecified adrenocortical insufficiency; I25.10 Atherosclerotic heart disease of native coronary artery without angina pectoris; N18.9 Chronic kidney disease, unspecified; E78.00 Pure hypercholesterolemia, unspecified; K21.9 Gastro-esophageal reflux disease without esophagitis; Z20.822 Contact with and (suspected) exposure to COVID-19; Z95.1 Presence of aortocoronary bypass graft; Z85.528 Personal history of other malignant neoplasm of kidney; Z86.711 Personal history of pulmonary embolism; Z90.5 Acquired absence of kidney; Z93.0 Tracheostomy status; Z90.02 Acquired absence of larynx; Z79.52 Long term (current) use of systemic steroids; Z79.82 Long term (current) use of aspirin; Z87.891 Personal history of nicotine dependence
CPT/HCPCS: 36415; 36600; 71045; 71275; 74230; 80048; 80053; 80069; 82375; 82607; 82746; 82805; 82948; 83036; 83050; 83605; 83735; 83880; 84100; 84145; 84443; 84484; 85018; 85025; 85027; 86140; 87040; 87070; 87205; 87449; 87637; 87641; 87899; 92611; 93005; 94640; 96361; 96365; 97161; 97165; 99285; A9270; G0378; J1650; J1720; J2543; J3411; J7120; Q9967